=== PATIENT | female | born 1940 | race Caucasian/White ===

== ENCOUNTER 2018-06-30 00:28 | Outpatient (CLI) | payer MEDICARE, BC, SELFPAY ==
--- NOTE | 2018-06-30 09:01 | DI.RAD_ITS ---
SYMPTOM/DIAGNOSIS: LUMBAGO WITH SCIATICA, M54.41 LUMBAR SPINE: There is partial sacralization of L 5. There is moderate to severe disc space narrowing throughout. There are prominent endplate osteophytes throughout, greatest at L 2-3. Facet degenerative changes are also present, greatest at L 5-S 1. No spondylolysis, spondylolisthesis or scoliosis is seen. There are no compression fractures. The aorta is calcified and normal in diameter. IMPRESSION: Advanced degenerative changes.
== END 2018-06-30 00:48 ==
PROVIDERS: PCP Family Medicine; Visit Provider Family Medicine
DX: M54.41 Lumbago with sciatica, right side (principal); M51.17 Intervertebral disc disorders with radiculopathy, lumbosacral region
CPT/HCPCS: 72110

== ENCOUNTER 2020-07-25 16:42 | Outpatient (REF) | payer OTHER, SELFPAY | END 2020-07-25 16:43 | disposition home or self-care (01) | LOC: NCHCN 16:42 | PROVIDERS: PCP Family Medicine; Visit Provider Family Medicine | DX: R30.0 Dysuria (principal) | CPT/HCPCS: 87077; 87086; 87186 ==

== ENCOUNTER 2020-08-13 19:01 | Outpatient (REF) | payer OTHER, SELFPAY ==
[2020-08-13 13:25] LABS: HCT 40.3 % (36.0-46.0); HGB 14.1 g/dL (11.2-15.7); MCH 34.4 pg (27.0-33.0); MCV 98.3 fL (80-95); MPV 11.5 fL (8.0-11.0); Platelet Count 239 10^3/uL (130-400); RDW 13.7 % (11.7-14.6); RDW-SD 49.7 fL; WBC 6.27 10^3/uL (4.4-10.8)
[2020-08-13 14:00] LABS: ALT 35 U/L (14-59); AST 25 U/L (15-37); Albumin 3.7 g/dL (3.4-5.0); Alkaline Phosphatase 49 U/L (46-116); BUN 19 mg/dL (7-18); Bilirubin, Total 0.3 mg/dL (0.2-1.0); CREATININE 0.9 mg/dL (0.55-1.02); Calcium 9.3 mg/dL (8.5-10.1); Calculated LDL 140 mg/dL (<100); Chloride 106 mmol/L (98-107); Cholesterol 245 mg/dL (<200); Glucose 76 mg/dL (74-106); HDL Cholesterol 63 mg/dL (40-60); Potassium 3.8 mmol/L (3.5-5.1); Sodium 145 mmol/L (136-145); Total Protein 7.1 g/dL (6.4-8.2); Triglyceride 214 mg/dL (<150)
== END 2020-08-13 19:02 | disposition home or self-care (01) ==
LOC: NCHCN 19:01
PROVIDERS: PCP Family Medicine; Visit Provider Family Medicine
DX: E78.5 Hyperlipidemia, unspecified (principal); I10 Essential (primary) hypertension; R30.0 Dysuria
CPT/HCPCS: 80053; 80061; 85027

== ENCOUNTER 2020-12-08 12:53 | Outpatient (REF) | payer OTHER, SELFPAY ==
[2020-12-08 21:56] LABS: ALT 46 U/L (14-59); AST 39 U/L (15-37); Albumin 3.9 g/dL (3.4-5.0); Alkaline Phosphatase 69 U/L (46-116); Anion Gap 8.7 mmol/L (3-11); BUN 12 mg/dL (7-18); Bilirubin, Total 0.5 mg/dL (0.2-1.0); CO2 29.3 mmol/L (21.0-32.0); CREATININE 0.9 mg/dL (0.55-1.02); Calcium 9.2 mg/dL (8.5-10.1); Calculated LDL 148 mg/dL (<100); Chloride 106 mmol/L (98-107); Cholesterol 230 mg/dL (<200); Glucose 87 mg/dL (74-106); HDL Cholesterol 51 mg/dL (40-60); Potassium 4.3 mmol/L (3.5-5.1); Sodium 144 mmol/L (136-145); Total Protein 6.8 g/dL (6.4-8.2); Triglyceride 156 mg/dL (<150)
== END 2020-12-08 12:54 | disposition home or self-care (01) ==
LOC: NCHCN 12:53
PROVIDERS: PCP Family Medicine; Visit Provider Family Medicine
DX: E78.5 Hyperlipidemia, unspecified (principal); I10 Essential (primary) hypertension
CPT/HCPCS: 80053; 80061

== ENCOUNTER 2021-01-26 17:46 | Outpatient (REF) | payer OTHER, SELFPAY ==
[2021-01-28 13:37] LABS: COVID-19 RT-PCR UVMMC Result Negative (Negative)
== END 2021-01-26 17:47 | disposition home or self-care (01) ==
LOC: NCHCN 17:46
PROVIDERS: PCP Family Medicine; Visit Provider Family Medicine
DX: Z20.822 Contact with and (suspected) exposure to COVID-19 (principal)
CPT/HCPCS: U0003

== ENCOUNTER 2021-07-29 12:10 | Outpatient (REF) | payer OTHER, SELFPAY ==
[2021-07-29 15:10] LABS: BUN 17 mg/dL (7-18); CREATININE 0.9 mg/dL (0.55-1.02); Chloride 106 mmol/L (98-107); Glucose 83 mg/dL (74-106); Sodium 142 mmol/L (136-145)
== END 2021-07-29 12:11 | disposition home or self-care (01) ==
LOC: NCHCN 12:10
PROVIDERS: PCP Family Medicine; Visit Provider Family Medicine
DX: I10 Essential (primary) hypertension (principal)
CPT/HCPCS: 80048

== ENCOUNTER 2022-02-12 19:04 | Emergency (ER) | payer OTHER, SELFPAY ==
[2022-02-12] VITALS (24 sets, daily range): BP systolic 163–209; BP diastolic 63–152; PULSE 47–101; RESP 13–26; TEMP 36.3; O2SAT 95–99
--- NOTE | 2022-02-12 19:00 | RT.EKG_ITS ---
APPROVED REPORT Exam: Resting ECG Reason for Exam: ekg changes Patient Location: E HR:46 bpm ECG Measurements Heart Rate 46 AXIS AZ 226 P 21 QRSd 94 QRS -38 QT 510 T 28 QTc 445 Conclusion Sinus bradycardia...rate< 60 Borderline prolonged AZ interval...AZ >222, V-rate 30- 49 Left ventricular hypertrophy...multiple voltage criteria. Sinus. LVH. No STEMI.
--- NOTE | 2022-02-12 20:00 | DI.CT_ITS ---
Exam(s) CT HEAD WO EXAM: CT HEAD WO CLINICAL HISTORY: right temporal pain. TECHNIQUE: Imaging Protocol: Axial computed tomography images with coronal and sagittal reformatted images were created and reviewed COMPARISON: CT HEAD WITHOUT CONTRAST from 02/06/2016 FINDINGS: There are no skull fractures nor fluid in the visualized paranasal sinuses. There is no evidence of intracranial hemorrhage, mass effect, or shift of midline structures. There are no extra-axial fluid collections. The ventricles are not enlarged or shifted and there is no blo od within the ventricular system nor within the basal cisterns. There is heavy calcification within the right vertebral artery at the skull base. Also eccentric katarzyna cified plaque noted at the mid aspect of the basilar artery. Also calcification within the intracave rnous internal carotid arteries. Tiny lacunar infarct noted in the lateral left basal ganglia, unchanged from 2016. There is, however , a subtle area of asymmetric hypodensity in the left parietal white matter, more so than previous. This may be post ischemic. Also very subtle asymmetric hypodensity in the left supra ventricular hig h frontal parietal white matter. IMPRESSION: Subtle left-sided white matter findings. Recommend follow-up MRI with diffusion imaging to determine if there has been an acute ischemic event. RADIATION DOSE DELIVERED: 693.06mGy.cm Total DLP DATA REPOSITORY: All CT scans at this facility are submitted to the National Radiology Data Registry (NRDR) Dose Index Registry (DIR) with the [employer] (ACR). RADIATION OPTIMIZATION: All CT scans at this facility use at least one of these dose optimization te chniques: automated exposure control; mA and/or kV adjustment per patient size (includes targeted exa ms where dose is matched to clinical indication); or iterative reconstruction.
[2022-02-12 20:28] LABS: Abs Immature Grans 0.01 10^3/uL (0.0-0.06); Absolute Basophil Count 0.03 10^3/uL (0.0-0.2); Absolute Eosinophil Count 0.27 10^3/uL (0.0-0.7); Absolute Monocyte Count 0.83 10^3/uL (0.1-0.8); Basophils % 0.5; Eosinophils % 4.7; HCT 40.2 % (36.0-46.0); Immature Grans % 0.2; Lymphocytes % 31.4; MCH 34.3 pg (27.0-33.0); MCHC 34.8 % (32.0-36.0); MCV 99 fL (80-95); Monocytes % 14.5; Neutrophils % 48.7; Platelet Count 205 10^3/uL (130-400); RBC 4.08 10^6/uL (3.93-5.22); RDW 13.2 % (11.7-14.6); RDW-SD 47.9 fL; WBC 5.74 10^3/uL (4.4-10.8)
[2022-02-12 20:32] LABS: ESR 9 mm/hr (0-30)
[2022-02-12 20:44] LABS: ALT 27 U/L (14-59); AST 24 U/L (15-37); Albumin 3.5 g/dL (3.4-5.0); Alkaline Phosphatase 50 U/L (46-116); Anion Gap 8.3 mmol/L (3-11); BUN 15 mg/dL (7-18); Bilirubin, Total 0.4 mg/dL (0.2-1.0); CO2 27.7 mmol/L (21.0-32.0); CREATININE 0.8 mg/dL (0.55-1.02); Calcium 8.8 mg/dL (8.5-10.1); Chloride 105 mmol/L (98-107); Glucose 94 mg/dL (74-106); Sodium 141 mmol/L (136-145); Troponin I < 50 ng/L (<or=60)
--- NOTE | 2022-02-12 20:55 | DI.VRAD_ITS ---
PROCEDURE INFORMATION: Exam: CT Head Without Contrast Exam date and time: 02/12/2022 8:32 PM Age: 81 years old Clinical indication: Stroke-like symptoms; Headache TECHNIQUE: Imaging protocol: Computed tomography of the head without contrast. Other technique: STROKE PROTOCOL was implemented. COMPARISON: CT HEAD WITHOUT CONTRAST 02/06/2016 6:52 PM FINDINGS: Brain: There is no acute intracranial hemorrhage, mass effect or midline shift. No large acute territorial infarct identified. There are patchy regions of hypodensity in the periventricular and subcortical white matter, likely on the basis of chronic microvascular ischemic disease. Cerebral ventricles: The ventricles and sulci are prominent in size, which is at least in part due to global cerebral volume loss. Paranasal sinuses: Visualized sinuses are unremarkable. No fluid levels. Mastoid air cells: Visualized mastoid air cells are well aerated. Bones/joints: No acute fracture. Soft tissues: Unremarkable. IMPRESSION: No acute intracranial hemorrhage, mass effect or midline shift. ASSESSMENT: ASPECTS ([place] Stroke Program Early CT Score) is 10. Dictated and Authenticated by: Oksana Claderon MD. Ordering:SWATHI Butler MD
[2022-02-12] MEDS: Metoclopramide 10 MG/2 ML VIAL 5 MG IVP (21:03)
--- NOTE | 2022-02-12 23:57 | ED.GENADUL_ITS ---
Discharge Plan Disposition Patient Disposition: HOME Condition: Stable Discharge Details Clinical Impression: Headache Primary Care Provider: Rosie Mathews ED Provider: Carrie Pacheco Home Meds and New Rx's Prescriptions: Continued AVORIDA PO DAILY vitamin E 100 UNIT capsule 100 unit PO DAILY Label Comments: Pt. takes 1000 IU QD. ascorbate calcium (vitamin C) 500 MG tablet 1 tab PO DAILY aspirin 81 MG tablet,chewable 1 tab PO DAILY vitamin B complex [B-Complex] 1 EACH tablet 1 tab PO DAILY indomethacin 75 MG capsule, extended release 75 mg PO DAILY Qty: 15 0RF losartan 50 mg tablet 50 mg PO DAILY Label Comments: TAKE ONE TABLET BY MOUTH EVERY DAY oxybutynin chloride 5 mg tablet 5 mg PO DAILY Label Comments: TAKE ONE TABLET BY MOUTH AT BEDTIME NEEDED Discharge Instructions Instructions: General Headache (ED) Additional Instructions: Continue on your prescribed medication Follow-up with your doctor on Tuesday Try to check your blood pressure only once a day and follow-up with your doctor regarding an elevated blood pressure Should you develop chest pain, shortness of breath, dizziness, or any new or worsening complaints, please return for reassessment Referrals: Rosie Mathews [Primary Care Provider] - Discharge Data Discharge Date/Time-TO BE ENTERED AT DEPARTURE: 02/12/22 22:01 Medical Decision Making Patient is resting quite comfortably in room, she is fully alert and oriented with a nonfocal neurological exam Her blood pressure is 178/77 at time of my assessment, I have low suspicion that her blood pressure is coinciding with her symptoms of headache I do not feel IV intervention is necessary at this time She is a nonfocal neurological exam She will continue on her prescribed medications and follow-up with her primary care physician in 2 to 3 days for reassessment She is given very low threshold to return should she have new or worsening complaints Your diagnostic labs are reassuring Her CT of her head does not show acute abnormality Her sed rate is within normal limits Discharged home in stable condition with stable vital Troponin negative and in the absence of chest pain or shortness of breath and cardiac complaints, I do not see any indication to do additional testing at this time Medical Records Medical records reviewed: Yes I reviewed the patient's medical records. Lab Data Lab results reviewed: Yes I reviewed the patient's lab results. HPI General Date/Time Provider Initiated Documentation: 02/12/22 19:25 . HPI Narrative: This pleasant 81-year-old female with history of hypertension presents with report of headache which precipitated patient to check her blood pressure approximately 12:00 today. She went to urgent care and was sent here for assessment. Patient denies any weakness, dizziness, chest pain, shortness of breath. She has a mild headache currently. She denies any vision change. She denies any speech or sensation change. She denies any trauma. She denies any vision change or focal weakness. Risk of car denies change in medications or carbon monoxide exposure Related Data Home Medications Medication Instructions Recorded Confirmed ascorbate calcium (vitamin C) 500 1 tab PO DAILY 11/25/14 02/12/22 mg tablet aspirin 81 mg chewable tablet 1 tab PO DAILY 11/25/14 02/12/22 vitamin B complex (B-Complex 1 tab PO DAILY 11/25/14 02/12/22 tablet) vitamin E 100 unit capsule 100 unit PO DAILY 11/25/14 02/12/22 Avorida PO DAILY 10/30/15 indomethacin 75 mg 75 mg PO DAILY ##15 02/06/16 02/12/22 capsule,extended release losartan 50 mg tablet 50 mg PO DAILY 02/12/22 02/12/22 oxybutynin chloride 5 mg tablet 5 mg PO DAILY 02/12/22 02/12/22 Previous Rx's Medication Instructions Recorded indomethacin 75 mg 75 mg PO DAILY ##15 02/06/16 capsule,extended release Allergies Allergy/AdvReac Type Severity Reaction Status Date / Time hydrocodone Allergy Intermediate Itching Unverified 02/12/22 19:18 oxycodone HCl [From Percocet] Allergy Intermediate Itching Unverified 02/12/22 19:18 prednisone Allergy Intermediate Swelling/Ed Unverified 02/12/22 19:18 acosta General Stated Complaint: GenMedical BRADLEY: 3 Review of Systems All systems reviewed & are unremarkable except as noted in HPI and below PFSH All Active Problems (Updated 02/12/22 @ 21:37 by FLAVIO Cannon) Headache (Acute) Tinnitus, bilateral (Acute) Sensorineural hearing loss of both ears (Acute) Social History Smoking/Tobacco Use Status: Former Tobacco Use Smoking risk assessment performed?: Yes Drug use: Never Exam Const General: cooperative, comfortable and no acute distress Orientation: alert and oriented x3 Eyes Pupils: PERRL Resp Effort & Inspection: normal respiratory effort Cardio Rate: regular rate Rhythm: regular rhythm Skin General skin exam: no rashes or lesions noted Neuro General: patient alert, patient oriented x3 and CN's II-XI intact bilaterally Cranial Nerves: CN's II-XI intact bilaterally Cognition: normal cognition Speech: speech normal Gait: normal gait Motor: strength 5/5 throughout Sensory Exam: no sensory deficits noted Extrem General: normal to inspection Course Vital Signs Vital signs: Vital Signs Temperature 36.3 C L 02/12/22 19:15 Pulse 58 L 02/12/22 19:15 Respiratory Rate 16 02/12/22 19:15 Blood Pressure 191/71 H 02/12/22 19:15 Pulse Oximetry 97 02/12/22 19:15 Temperature 36.3 C L 02/12/22 22:00 Temperature Source Temporal Artery Scan 02/12/22 19:15 Pulse 50 L 02/12/22 22:00 Pulse 53 L 02/12/22 21:50 Respiratory Rate 17 02/12/22 22:00 Respiratory Effort Non-Labored 02/12/22 19:57 Respiratory Depth Normal 02/12/22 19:57 Respiratory Pattern Normal 02/12/22 19:57 Blood Pressure 202/77 H 02/12/22 22:00 Blood Pressure Mean 125 02/12/22 21:49 Blood Pressure Position Sitting 02/12/22 19:15 Pulse Oximetry 97 02/12/22 22:00 Oxygen Delivery Method Room Air 02/12/22 20:15 Oxygen Flow Rate 0 02/12/22 20:15 Pain Level 0 02/12/22 22:00 Lab/Test Results Lab/Test Results: Laboratory Tests Range/Units 02/12/22 02/12/22 02/12/22 20:20 20:20 20:20 WBC (4.4-10.8) 10^3/uL 5.74 RBC (3.93-5.22) 10^6/uL 4.08 Hgb (11.2-15.7) g/dL 14.0 Hct (36.0-46.0) % 40.2 MCV (80-95) fL 99 H MCH (27.0-33.0) pg 34.3 H MCHC (32.0-36.0) % 34.8 RDW (11.7-14.6) % 13.2 Plt Count (130-400) 10^3/uL 205 MPV (8.0-11.0) fL 11.0 Immature Gran % 0.2 Neutrophils % 48.7 Lymphocytes % 31.4 Monocytes % 14.5 Eosinophils % 4.7 Basophils % 0.5 Nucleated RBC % (0.0-0.3) % 0.0 Absolute Neutrophils (1.2-6.7) 10^3/uL 2.80 Absolute Lymphocytes (1.2-3.4) 10^3/uL 1.80 Absolute Monocytes (0.1-0.8) 10^3/uL 0.83 H Absolute Eosinophils (0.0-0.7) 10^3/uL 0.27 Absolute Basophils (0.0-0.2) 10^3/uL 0.03 ESR (0-30) mm/hr 9 Sodium (136-145) mmol/L 141 Potassium (3.5-5.1) mmol/L 4.0 Chloride (98-107) mmol/L 105 Carbon Dioxide (21.0-32.0) mmol/L 27.7 Anion Gap (3-11) mmol/L 8.3 BUN (7-18) mg/dL 15 Creatinine (0.55-1.02) mg/dL 0.8 Estimated GFR/1.73 m2 (mL/min/1.73m2) >= 60.00 Glucose (74-106) mg/dL 94 Calcium (8.5-10.1) mg/dL 8.8 Total Bilirubin (0.2-1.0) mg/dL 0.4 AST (15-37) U/L 24 ALT (14-59) U/L 27 Alkaline Phosphatase (46-116) U/L 50 Troponin I (<or=60) ng/L < 50 Total Protein (6.4-8.2) g/dL 7.0 Albumin (3.4-5.0) g/dL 3.5
--- NOTE | 2022-02-17 17:51 | W.ED.FU ---
Follow Up Plan: I was reviewing the radiologists overread and it appears there is a discrepancy in the virtual radiology interpretation of patient's head CT, at time of discharge patient was completely asymptomatic, ambulatory with steady gait fully alert and oriented. Her blood pressure was slightly elevated, however this was rechecking her blood pressure on several occasions and being transferred over from urgent care. Her headache resolved with Tylenol only. She was encouraged to continue taking her blood pressure medication and follow-up with her primary care physician in the morning. the overread exhibited concern that there is possibly ischemia and unfortunately this was not related to the emergency department on the and this was interpreted. I am reviewing this finding now on 17 February at 1750 3 in the evening. I placed a call to the patient, I am awaiting response at this time.
== END 2022-02-12 22:01 | disposition home or self-care (01) ==
PROVIDERS: Emergency Provider Physician Assistant; PCP Family Medicine
DX: R51.9 Headache, unspecified (principal); I10 Essential (primary) hypertension; Z87.891 Personal history of nicotine dependence
CPT/HCPCS: 80053; 85652; 93005; 96374; 96375; 99284; 70450; 84484; 85025; 93010; J2765

== ENCOUNTER 2022-02-18 13:13 | Emergency (ER) | payer OTHER, SELFPAY ==
--- NOTE | 2022-02-18 13:15 | DI.MRI_ITS ---
Exam(s) MR BRAIN WO EXAM: MR BRAIN WO CLINICAL HISTORY: Abnormal CT TECHNIQUE: Multiplanar multisequence MRI of the brain was performed. COMPARISON: CT CT HEAD WO from 02/12/2022 FINDINGS: CEREBRAL PARENCHYMA: There is no evidence of intracranial hemorrhage, mass effect, or shift of midline structures. There are no extra-axial fluid collections. Ventricles are not enlarged or shifted. There is no significant focal signal abnormality in the cerebellar hemispheres. There is symmetrical increased signal evident both sides of the iza. There is sparing of the thalami and midbrain. How ever, there are multiple foci of white matter signal abnormality in the [place] in supra ventricular whi te matter evident on the FLAIR images, more so on the left side and this consistent with findings on the recent CT scan. However, there is no evidence of restricted diffusion at this level nor elsewher e in the brain to suggest acute ischemic event. SWI: No evidence of microhemorrhages. There is no significant focal signal abnormality evident on diffusion imaging to suggest acute ischem ic event. PITUITARY GLAND: No mass nor parasellar abnormality. No obvious abnormality in the cavernous sinuses. FLOW VOIDS: The expected flow void are noted. No evidence of obvious aneurysm nor obvious vascular ma lformation. PARANASAL SINUSES: The visualized paranasal sinuses appear unremarkable. No obvious finding ORBITS: No obvious findings. IMPRESSION: Abundant periventricular white matter disease chronic nature, slightly more so on the left side, comm ensurate with findings on the recent CT scan. However, there is no evidence of restricted diffusion on DWI to suggest acute infarct. Also no evidence of intracranial hemorrhage. DATA REPOSITORY:
[2022-02-18 13:38] VITALS: BP 194/77; PULSE 70; RESP 16; TEMP 36.7; O2SAT 94
[2022-02-18 15:54] VITALS: BP 144/88
--- NOTE | 2022-02-18 15:56 | ED.GENADUL_ITS ---
Discharge Plan Disposition Patient Disposition: HOME Condition: Stable Discharge Details Clinical Impression: Headache Primary Care Provider: Rosie Mathews ED Provider: Carrie Pacheco Home Meds and New Rx's Prescriptions: Continued AVORIDA PO DAILY vitamin E 100 UNIT capsule 100 unit PO DAILY Label Comments: Pt. takes 1000 IU QD. ascorbate calcium (vitamin C) 500 MG tablet 1 tab PO DAILY aspirin 81 MG tablet,chewable 1 tab PO DAILY vitamin B complex [B-Complex] 1 EACH tablet 1 tab PO DAILY indomethacin 75 MG capsule, extended release 75 mg PO DAILY Qty: 15 0RF losartan 50 mg tablet 50 mg PO DAILY Label Comments: TAKE ONE TABLET BY MOUTH EVERY DAY oxybutynin chloride 5 mg tablet 5 mg PO DAILY Label Comments: TAKE ONE TABLET BY MOUTH AT BEDTIME NEEDED Discharge Instructions Instructions: Temporomandibular Disorder (ED), General Headache (ED) Additional Instructions: Take Tylenol as needed for pain Talk to your dentist about your pain, you may be able to have a mouthguard which will help with your symptoms You may apply ice or massage your jaw in the area that you have tenderness Please follow-up with your doctor tomorrow regarding your blood pressure as it is elevated here, your blood pressure is normal at home and only elevates when you go to the doctors, this may be directly related to healthcare elevated blood pressure, have low suspicion that your headache is related to your blood pressure Please return immediately should he have new or worsening complaints Referrals: Rosie Mathews [Primary Care Provider] - 1 day Medical Decision Making MRI did not show evidence of acute abnormality per radiology interpretation and my review Patient's blood pressure is 144/88, she was encouraged to continue on her current prescription of antihypertensive TMJ joint tenderness, encouraged follow-up with dentist Return precautions discussed and patient expressed understanding, discharged home in stable condition with only mildly elevated blood pressure, unlikely related to patient's current previous complaint Specifically no tenderness over temporal artery Review of prior documentation and labs from previous assessment Care management with PCP recheck in 24 hours, placed on care management list for follow-up Medical Records Medical records reviewed: Yes I reviewed the patient's medical records. HPI General Date/Time Provider Initiated Documentation: 02/18/22 13:18 . HPI Narrative: This 81-year-old female presents for reassessment of reported abnormal CT head reading. She currently is asymptomatic and otherwise feels well. She states that she was assessed by her primary care physician yesterday for the same complaint and was discharged home in reportedly good condition. She denies any current headache, strength or sensation change, vision change, stiff neck, fever, chills, or any additional complaints at this time. She is taking her current medications as prescribed without difficulty. Related Data Home Medications Medication Instructions Recorded Confirmed ascorbate calcium (vitamin C) 500 1 tab PO DAILY 11/25/14 02/12/22 mg tablet aspirin 81 mg chewable tablet 1 tab PO DAILY 11/25/14 02/12/22 vitamin B complex (B-Complex 1 tab PO DAILY 11/25/14 02/12/22 tablet) vitamin E 100 unit capsule 100 unit PO DAILY 11/25/14 02/12/22 Avorida PO DAILY 10/30/15 indomethacin 75 mg 75 mg PO DAILY ##15 02/06/16 02/12/22 capsule,extended release losartan 50 mg tablet 50 mg PO DAILY 02/12/22 02/12/22 oxybutynin chloride 5 mg tablet 5 mg PO DAILY 02/12/22 02/12/22 Previous Rx's Medication Instructions Recorded indomethacin 75 mg 75 mg PO DAILY ##15 02/06/16 capsule,extended release Allergies Allergy/AdvReac Type Severity Reaction Status Date / Time hydrocodone Allergy Intermediate Itching Unverified 02/18/22 13:43 oxycodone HCl [From Percocet] Allergy Intermediate Itching Unverified 02/18/22 13:43 prednisone Allergy Intermediate Swelling/Ed Unverified 02/18/22 13:43 acosta General Stated Complaint: Recheck BRADLEY: 3 Review of Systems All systems reviewed & are unremarkable except as noted in HPI and below PFSH All Active Problems (Updated 02/18/22 @ 15:43 by FLAVIO Cannon) Headache (Acute) Tinnitus, bilateral (Acute) Sensorineural hearing loss of both ears (Acute) Social History Smoking/Tobacco Use Status: Former Tobacco Use Smoking risk assessment performed?: Yes Drug use: Never Exam Const General: cooperative, comfortable and no acute distress Orientation: alert and oriented x3 HENMT Other: Specifically no pain at patient's temporal artery, tenderness and reproducible pain at TMJ joint Eyes Pupils: PERRL Resp Effort & Inspection: normal respiratory effort Auscultation: clear to auscultation bilaterally Cardio Rate: regular rate Rhythm: regular rhythm Skin General skin exam: no rashes or lesions noted Neuro General: patient alert and patient oriented x3 Cognition: normal cognition Speech: speech normal Gait: normal gait Motor: strength 5/5 throughout Course Vital Signs Vital signs: Vital Signs Temperature 36.7 C 02/18/22 13:38 Pulse 70 02/18/22 13:38 Respiratory Rate 16 02/18/22 13:38 Blood Pressure 194/77 H 02/18/22 13:38 Pulse Oximetry 94 02/18/22 13:38 Temperature 36.7 C 02/18/22 13:38 Temperature Source Skin 02/18/22 13:38 Pulse 70 02/18/22 13:38 Respiratory Rate 16 02/18/22 13:38 Blood Pressure 144/88 H 02/18/22 15:54 Blood Pressure Position Sitting 02/18/22 13:38 Pulse Oximetry 94 02/18/22 13:38 Oxygen Delivery Method Room Air 02/18/22 13:38 Oxygen Flow Rate 0 02/18/22 13:38 Pain Level 0 02/18/22 15:54 Comment 02/18/22 13:38
== END 2022-02-18 15:56 | disposition home or self-care (01) ==
PROVIDERS: Emergency Provider Physician Assistant; PCP Family Medicine
DX: R51.9 Headache, unspecified (principal); R03.0 Elevated blood-pressure reading, without diagnosis of hypertension; M26.629 Arthralgia of temporomandibular joint, unspecified side; Z87.891 Personal history of nicotine dependence
CPT/HCPCS: 99284; 70551; 99282

== ENCOUNTER → 2023-09-23 15:22 | Outpatient (CLI) | payer OTHER, SELFPAY ==
--- NOTE | 2023-09-23 13:05 | DI.RAD_ITS ---
Exam(s) XR CHEST 2V PA LATERAL EXAM: XR CHEST 2V PA LATERAL CLINICAL HISTORY: HEMATEMESIS, K92.0. TECHNIQUE: 2D digital imaging was performed. COMPARISON: CR CHEST 2 VIEWS PA,LAT from 10/03/2017 FINDINGS: 2 views: Heart size is normal. The mediastinum is not widened. Lungs are clear. No infiltrates nor pleural effusions. Right shoulder reverse prosthesis again noted as well as evidence of previous rotator cuff surgery in the opposite-left shoulder. IMPRESSION: No acute pulmonary findings.No significant change compared to 10/03/2017. DATA REPOSITORY: RADIATION DOSE DELIVERED:
== END ==
PROVIDERS: PCP Family Medicine; Visit Provider Family Medicine
DX: K92.0 Hematemesis (principal)
CPT/HCPCS: 71046

== ENCOUNTER 2023-10-06 15:33 | Outpatient (REF) | payer OTHER, SELFPAY ==
[2023-10-06 16:15] LABS: BUN 14 mg/dL (7-18); CREATININE 0.9 mg/dL (0.55-1.02); Calcium 9.2 mg/dL (8.5-10.1); Chloride 105 mmol/L (98-107); Estimated GFR 63.04 (mL/min/1.73m2); Glucose 107 mg/dL (74-106); Potassium 4.4 mmol/L (3.5-5.1); Sodium 142 mmol/L (136-145)
== END 2023-10-06 15:34 | disposition home or self-care (01) ==
LOC: NCHCN 15:33
PROVIDERS: PCP Family Medicine; Visit Provider Family Medicine
DX: I10 Essential (primary) hypertension (principal)
CPT/HCPCS: 80048

== ENCOUNTER 2023-10-11 15:39 | Outpatient (REF) | payer OTHER, SELFPAY ==
[2023-10-11 20:35] LABS: Abs Immature Grans 0.02 10^3/uL (0.0-0.06); Absolute Basophil Count 0.08 10^3/uL (0.0-0.2); Absolute Eosinophil Count 0.52 10^3/uL (0.0-0.7); Absolute Lymphocyte Count 2.13 10^3/uL (1.2-3.4); Absolute Monocyte Count 0.81 10^3/uL (0.1-0.8); Absolute Neutrophil Count 3.99 10^3/uL (1.2-6.7); Basophils % 1.1; Eosinophils % 6.9; HCT 42.5 % (36.0-46.0); HGB 14.5 g/dL (11.2-15.7); Immature Grans % 0.3; Lymphocytes % 28.2; MCH 34.1 pg (27.0-33.0); MCHC 34.1 % (32.0-36.0); MCV 100 fL (80-95); MPV 11.4 fL (8.0-11.0); Monocytes % 10.7; Neutrophils % 52.8; Platelet Count 222 10^3/uL (130-400); RBC 4.25 10^6/uL (3.93-5.22); RDW 14.3 % (11.7-14.6); RDW-SD 52.4 fL; WBC 7.55 10^3/uL (4.4-10.8)
== END 2023-10-11 15:40 | disposition home or self-care (01) ==
LOC: NCHCN 15:39
PROVIDERS: PCP Family Medicine; Visit Provider Family Medicine
DX: I10 Essential (primary) hypertension (principal)
CPT/HCPCS: 85025

== ENCOUNTER 2023-10-30 13:47 | Emergency (ER) | payer OTHER, SELFPAY ==
[2023-10-30] VITALS (47 sets, daily range): BP systolic 102–217; BP diastolic 55–97; PULSE 54–124; RESP 13–28; TEMP 36.7; O2SAT 91–97
--- NOTE | 2023-10-30 13:45 | DI.CT_ITS ---
Exam(s) CT CHEST PE CTA EXAM: CT CHEST PE CTA CLINICAL HISTORY: Chest pain radiating to back. TECHNIQUE: Imaging Protocol: Axial CT angiography was performed with multi-slice acquisition and mu lti-planar and/or 3D reconstructions. CONTRAST MATERIAL: Intravenous: Omnipaque 350 contrast volume:100 mL COMPARISON: No exams were available for comparison FINDINGS: Tracheobronchial tree: Patent where visualized. Pulmonary parenchyma: No consolidation or dominant measurable mass. No architectural distortion. Ther e is a calcified granuloma in the right upper lobe. Pulmonary Arteries: No evidence of filling defect to suggest pulmonary emboli. Mediastinum and Chloe: No dominant adenopathy or fluid collection. The esophagus is unremarkable. Th ere is a small hiatal hernia. Visualized thyroid gland: Unremarkable. Pleura: No effusion or pneumothorax. Heart: The heart is not dilated. Coronary artery calcifications are present. No pericardial effusion . Aorta: The ascending thoracic aorta measures 4.8 x 4.8 cm. Due to the timing of the bolus, aortic op acification is suboptimal for evaluation of dissection. There is atherosclerotic calcification prese nt. Upper abdomen: Cholelithiasis. Soft tissues: Unremarkable. Bones: Within normal limits for the patient's age.Patient has a right total reverse shoulder replacem ent. IMPRESSION: 1. No evidence of a pulmonary embolism. 2. Ascending thoracic aorta measures 4.8 x 4.8 cm. Atherosclerotic calcification is present. 3. No acute pulmonary process. RADIATION DOSE DELIVERED: 544.62mGy.cm Total DLP DATA REPOSITORY: All CT scans at this facility are submitted to the National Radiology Data Registry (NRDR) Dose Index Registry (DIR) with the [employer] (ACR). RADIATION OPTIMIZATION: All CT scans at this facility use at least one of these dose optimization te chniques: automated exposure control; mA and/or kV adjustment per patient size (includes targeted exa ms where dose is matched to clinical indication); or iterative reconstruction.
--- NOTE | 2023-10-30 13:45 | RT.EKG_ITS ---
APPROVED REPORT Exam: Resting ECG Reason for Exam: chest pain Patient Location: E HR:65 bpm ECG Measurements Heart Rate 65 AXIS ME 210 P 22 QRSd 93 QRS -38 QT 415 T 86 QTc 431 Conclusion Sinus rhythm...normal P axis, V-rate 60- 99 LVH with secondary repolarization abnormality...multi-LVH criteria, abnrm ST-T Narrow complex normal sinus rhythm at a rate of 65. Left axis deviation LVH based on voltage criteri a. First-degree AV block. QTc within normal limits. T wave inversion in aVL. Compared to prior [place] 2 years ago T wave version in aVL is new. Mild upsloping ST segment elevation in lead III submil limeter. Mild ST segment flattening in lead I. Not meeting occlusion AK criteria.
--- NOTE | 2023-10-30 13:58 | W.ED.GENAD ---
Discharge Plan Disposition Patient Disposition: Transfer-Acute Inpatient Care Specific Acute Inpt Facility: [facility] Discharge Details Clinical Impression: ACS (acute coronary syndrome) Primary Care Provider: Rosie Mathews ED Provider: Radu Giron Home Meds and New Rx's Prescriptions: No Action AVORIDA PO DAILY vitamin E 100 UNIT capsule 100 unit PO DAILY Patient Comments: Pt. takes 1000 IU QD. ascorbate calcium (vitamin C) 500 MG tablet 1 tab PO DAILY aspirin 81 MG tablet,chewable 1 tab PO DAILY vitamin B complex [B-Complex] 1 EACH tablet 1 tab PO DAILY losartan 50 mg tablet 50 mg PO DAILY Patient Comments: TAKE ONE TABLET BY MOUTH EVERY DAY oxybutynin chloride 5 mg tablet 5 mg PO DAILY Patient Comments: TAKE ONE TABLET BY MOUTH AT BEDTIME NEEDED Discharge Data Discharge Date/Time-TO BE ENTERED AT DEPARTURE: 10/30/23 16:32 HPI General Date/Time Provider Initiated Documentation: 10/30/23 13:56. HPI Narrative: MDM This patient was seen on arrival. Her initial ECG was not meeting occlusion [place] criteria. Nonetheless she received aspirin and nitroglycerin for her ongoing chest pain. Given chest pain radiating to back with dilated arotic outflow tract on bedside echo, I ordered a CT angiogram of her chest to assess for aortic dissection. No pain out of proportion to suggest necrotizing soft tissue infection. Not short of breath not hypoxic to suggest PE. Not hypotensive nor dialysis patient nor with history of malignancy so my suspicion is low for tamponade. No trauma to the chest so my suspicion is low for pneumothorax given equal breath sounds. No signs of volume overload so I do not feel that the patient requires diuretics nor high-dose nitroglycerin as she does not have pulmonary edema on my assessment. No positional component to suggest zia/myocarditis. No cough nor fever to suggest PNA. No vomiting to suggest increased risk for esophageal rupture. 2:22 PM Subsequently she had a second ECG performed with new rising ST segments in leads III and aVF. 2:30 PM Negative troponin. Comprehensive metabolic panel showing very mild hypernatremia. Mildly elevated renal function but GFR greater than 30. No acute LFT abnormalities. Normal reassuring magnesium. CBC lacks anemia thrombocytopenia and leukocytosis. 3:03 PM Patient had uptrending ST segment elevations on the monitor. A third ECG was performed meeting criteria for inferior STEMI. [facility] was consulted. 3:46 PM I spoke with [facility] cardiology, Dr. Lee. He advised high-dose atorvastatin, ticagrelor, & heparin drip. He advised holding thrombolysis pending fourth ECG. I ordered a repeat 1 hour delta troponin. CTA report still pending but no obvious dissection on my preliminary read. Patient has received aspirin 324 mg. Her pain has been responsive to nitroglycerin and ondansetron. Pads were applied to the patient. Patient had excursions of tachycardia into the 120s for which I ordered 5 mg of metoprolol IV. Subsequently patient's heart rates were in the low 60s so metoprolol was ultimately held. Fourth ECG no longer meeting STEMI criteria. I reengaged with cards from [facility] and Dr. Lee requested that I hold thrombolysis. 5:42 PM I signed patient out to Alejandra from [facility] at bedside. For chest pain responsive to nitro, I initiated a nitro gtt. I had the patient's CTA PE pushed to [facility]. Preliminary virtual radiology read negative for PE and no report of dissection. Repeat troponin was negative. Patient was accepted to [facility] by the fellow on behalf of Dr. Aguilera. Patient remained hemodynamically stable through her ED course. Chronic conditions affecting the care of the patient: Hypertension hyperlipidemia History obtained from an outside historian: Patient's daughter External record review: [facility] EMR Diagnostic interpretations performed by me: Per my independent interpretation EKG shows: ECG #1 Narrow complex normal sinus rhythm at a rate of 65. Left axis deviation LVH based on voltage criteria. First-degree AV block. QTc within normal limits. T wave inversion in aVL. Compared to prior dated 2 years ago T wave version in aVL is new. Mild upsloping ST segment elevation in lead III submillimeter. Mild ST segment flattening in lead I. Not meeting occlusion [place] criteria. ECG #2 2:21 PM Sinus tachycardia at a rate of 121. Left axis deviation. New approximately [address] segment elevation in lead III. Sub-[address] segment elevation in aVF. New ST segment depression in V2. Worsened T wave inversion in aVL. Worsened ST segment depression in lead I. Not meeting STEMI criteria but concerning for new acute injury. ECG #3 3:06 PM Sinus tachycardia at a rate of 118. Left axis deviation. ID within normal limits. Prolonged QTc. No signs of LVH. Denies any ST segment inferior elevations in leads II, III and aVF. Persistent ST segment depression in V2 and lead I. Persistent T wave inversion in aVL. Meeting STEMI criteria in leads III and aVF. ECG #4 3:51 PM Narrow complex normal sinus rhythm at a rate of 63. Left axis deviation no signs of LVH. First-degree AV block. Resolved QTc prolongation now within normal limits. Improved inferior ST segment elevations. Persistent but improving T wave inversion in aVL. Improving ST segment depression in lead III. Improved ST segment depression in V2. No acute injury pattern. Medications: Aspirin heparin ticagrelor ondansetron nitroglycerin Social determinants of health affecting disposition: N/A Management discussed with: Cardiology at [facility] Treatment/interventions considered: TNK but deferred based on recommendation cardiology at [facility] Response to therapies provided: Improved symptoms in the ED HPI This is an 83-year-old female with a history of hypertension and hyperlipidemia arriving to the emergency department via private vehicle in the setting of chest pain. Patient reports that she has intermittently had some pain in her back over the past week. Today sitting in zoroastrian she developed a central chest ache that traveled to her left arm and her back. She reports she did not have any syncope. No recent falls. She denies exacerbators and alleviators. Pain is not positional nor pleuritic. There is no family history of premature coronary artery disease. Patient has no history of PEs or DVTs. No routine tobacco ethanol, no illicits. Patient denies history of DM. Exam General: Well-appearing in no acute distress speaking in complete sentences. Head: Normocephalic, atraumatic. Eye: Extraocular eye movements intact. No conjunctival injection. No scleral icterus. Ear, nose, mouth, throat: Grossly normal inspection. Normal voice, handling secretions normally. Neck: Trachea midline. Cardiovascular: Well-perfused distal extremities. Regular rate and rhythm. Respiratory: Nonlabored respiration. Clear lungs bilaterally. Gastrointestinal: Nondistended abdomen. Musculoskeletal: No significant lower extremity pitting edema. Moving all 4 extremities spontaneously. Skin: Normal for age and race, grossly normal temperature and turgor. No acute rash. Neurologic: Alert and appropriate, no apparent acute deficits. Psychiatric: Mood and manner are appropriate. Grooming and personal hygiene are appropriate. Related Data Home Medications Medication Instructions Recorded Confirmed ascorbate calcium (vitamin C) 500 1 tab PO DAILY 11/25/14 10/30/23 mg tablet aspirin 81 mg chewable tablet 1 tab PO DAILY 11/25/14 10/30/23 vitamin B complex (B-Complex 1 tab PO DAILY 11/25/14 10/30/23 tablet) vitamin E 100 unit capsule 100 unit PO DAILY 11/25/14 10/30/23 Avorida PO DAILY 10/30/15 losartan 50 mg tablet 50 mg PO DAILY 02/12/22 10/30/23 oxybutynin chloride 5 mg tablet 5 mg PO DAILY 02/12/22 10/30/23 Allergies Allergy/AdvReac Type Severity Reaction Status Date / Time hydrocodone Allergy Intermediate Itching Unverified 02/18/22 13:43 oxycodone HCl [From Percocet] Allergy Intermediate Itching Unverified 02/18/22 13:43 prednisone Allergy Intermediate Swelling/Ed Unverified 02/18/22 13:43 acosta General Stated Complaint: Chest Pain BRADLEY: 2 Course Vital Signs Vital signs: Vital Signs Temperature 36.7 C 10/30/23 13:48 Pulse 71 10/30/23 13:48 Respiratory Rate 17 10/30/23 13:48 Blood Pressure 217/68 H 10/30/23 13:48 Pulse Oximetry 96 10/30/23 13:48 Temperature 36.7 C 10/30/23 13:48 Pulse 71 10/30/23 13:48 Respiratory Rate 17 10/30/23 13:48 Blood Pressure 217/68 H 10/30/23 13:48 Blood Pressure Position Sitting 10/30/23 13:48 Pulse Oximetry 96 10/30/23 13:48 Oxygen Delivery Method Room Air 10/30/23 13:48 Oxygen Flow Rate 0 10/30/23 13:48 Pain Level 10 10/30/23 13:48 Medical Decision Making Quality:SDOH Health Related Social Needs: No Data to Display Critical Care Time Critical Care Time Critical Care Time: Yes Total Critical Care Time: 60 Attestation: Acute coronary syndrome. Bedside assessments, conversations with tertiary care cardiology, critical care handoff to [facility], and rhythm interpretation. PFSH All Active Problems (Updated 10/30/23 @ 15:48 by Radu Giron MD) ACS (acute coronary syndrome) (Acute) Tinnitus, bilateral (Acute) Sensorineural hearing loss of both ears (Acute) Social History Smoking/Tobacco Use Status: Former Tobacco Use Smoking risk assessment performed?: Yes Alcohol Intake: never Drug use: Never Substance use type: does not use Housing: apartment Do you feel safe at home: Yes Do you feel safe in your relationship?: Yes POCUS Exam (ED) Limited Cardiac Exam DATE OF EXAM: 10/30/23 TIME OF EXAM: 16:08 PROVIDER THAT PERFORMED THE STUDY: Radu Giron IS THIS A REPEAT EXAM DURING THIS ENCOUNTER: no REASON FOR EXAM: Chest pain VISUALIZED STRUCTURES: Four Chambers, Left ventricle and LVOT VIEW OBTAINED: Apical 4-Chamber, Parasternal long-axis and Subxiphoid PERTINENT FINDINGS/IMPRESSION: No pericardial effusion and No RV dilation DIFFERENTIAL DIAGNOSES: Aortic outflow track greater than 4 cm, moderate squeeze, RV less than LV, no significant pericardial effusion. Exam complete
[2023-10-30 14:05] LABS: Abs Immature Grans 0.02 10^3/uL (0.0-0.06); Absolute Basophil Count 0.05 10^3/uL (0.0-0.2); Absolute Eosinophil Count 0.39 10^3/uL (0.0-0.7); Absolute Lymphocyte Count 2.37 10^3/uL (1.2-3.4); Absolute Monocyte Count 0.94 10^3/uL (0.1-0.8); Absolute Neutrophil Count 3.99 10^3/uL (1.2-6.7); Basophils % 0.6 %; HCT 42.7 % (36.0-46.0); HGB 14.5 g/dL (11.2-15.7); Immature Grans % 0.3 %; Lymphocytes % 30.5 %; MCH 33.8 pg (27.0-33.0); MCV 100 fL (80-95); Monocytes % 12.1 %; Neutrophils % 51.5 %; Platelet Count 227 10^3/uL (130-400); RBC 4.29 10^6/uL (3.93-5.22); RDW 14.3 % (11.7-14.6); RDW-SD 52.3 fL; WBC 7.76 10^3/uL (4.4-10.8)
[2023-10-30] MEDS: Aspirin 81 MG CHEW 324 MG CH (14:05)
[2023-10-30] MEDS: nitroGLYcerin 0.4 MG TAB SL ×4 (14:05→15:16)
--- NOTE | 2023-10-30 14:15 | RT.EKG_ITS ---
APPROVED REPORT Exam: Resting ECG Reason for Exam: change in rhythm Patient Location: E HR:121 bpm ECG Measurements Heart Rate 121 AXIS NC [id number] P [id number] QRSd 85 QRS -43 QT 333 T 98 QTc 473 Conclusion Junctional tachycardia...absent P waves, rapid V-rate LVH with secondary repolarization abnormality...multi-LVH criteria, abnrm ST-T ST elevation secondary to LVH...Multiple VCG criteria ST elevation, consider lateral injury...ST >0.10mV, I aVL V5 V6 New approximately [address] segment elevation in lead III. Sub-[address] segment elevation in aVF. New ST segment depression in V2. Worsened T wave inversion in aVL. Worsened ST segment depression in le ad I. Not meeting STEMI criteria but concerning for new acute injury.
[2023-10-30 14:22] LABS: ALT 27 U/L (14-59); AST 24 U/L (15-37); Alkaline Phosphatase 60 U/L (46-116); Anion Gap 10.8 mmol/L (3-11); BUN 19 mg/dL (7-18); Bilirubin, Total 0.6 mg/dL (0.2-1.0); CO2 27.2 mmol/L (21.0-32.0); CREATININE 1.2 mg/dL (0.55-1.02); Chloride 108 mmol/L (98-107); Estimated GFR 44.64 (mL/min/1.73m2); Glucose 87 mg/dL (74-106); Potassium 3.8 mmol/L (3.5-5.1); Sodium 146 mmol/L (136-145); Total Protein 7.6 g/dL (6.4-8.2); Troponin I < 50 ng/L (< or =60)
[2023-10-30] MEDS: Normal Saline - Diluent 50 ML VIAL IJ (14:43)
--- NOTE | 2023-10-30 15:00 | RT.EKG_ITS ---
APPROVED REPORT Exam: Resting ECG Reason for Exam: rhythm changes Patient Location: E HR:118 bpm ECG Measurements Heart Rate 118 AXIS NH 166 P -49 QRSd 86 QRS -45 QT 368 T 104 QTc 516 Conclusion Sinus or ectopic atrial tachycardia...P axis (-45,135), rate> 99 LVH with secondary repolarization abnormality...multi-LVH criteria, abnrm ST-T ST elevation secondary to LVH...Multiple VCG criteria Prolonged QT interval...QTc >500mS Sinus tachycardia at a rate of 118. Left axis deviation. NH within normal limits. Prolonged QTc. No signs of LVH. Denies any ST segment inferior elevations in leads II, III and aVF. Persistent ST segment depression in V2 and lead I. Persistent T wave inversion in aVL. Meeting STEMI criteria in leads III and aVF.
[2023-10-30] MEDS: Ondansetron 4 MG/2 ML VIAL (15:14)
[2023-10-30 15:44] LABS: Troponin I < 50 ng/L (< or =60)
--- NOTE | 2023-10-30 15:45 | RT.EKG_ITS ---
APPROVED REPORT Exam: Resting ECG Reason for Exam: Patient Location: E HR:63 bpm ECG Measurements Heart Rate 63 AXIS ME 232 P 22 QRSd 92 QRS -42 QT 413 T 81 QTc 424 Conclusion Sinus rhythm...normal P axis, V-rate 60- 99 Prolonged ME interval...ME >220, V-rate 50- 90 Left anterior fascicular block...axis(240,-40), init forces inf Left ventricular hypertrophy...multiple voltage criteria ST elevation, consider inferior injury...ST >0.08mV, II III aVF Narrow complex normal sinus rhythm at a rate of 63. Left axis deviation no signs of LVH. First-degr ee AV block. Resolved QTc prolongation now within normal limits. Improved inferior ST segment eleva tions. Persistent but improving T wave inversion in aVL. Improving ST segment depression in lead II I. Improved ST segment depression in V2. No acute injury pattern.
[2023-10-30] MEDS: Atorvastatin 40 MG TAB 80 MG PO (15:49)
[2023-10-30] MEDS: Heparin in 0.45% NaCl 25,000 UNIT/250 ML BAG 8.5 UNIT IV (15:53)
[2023-10-30] MEDS: Ticagrelor 90 MG TAB 180 MG PO (15:57)
[2023-10-30 16:04] LABS: PTT Activated 22.5 sec (23.6-32.8)
[2023-10-30] MEDS: nitroGLYcerin in D5W 50 MG/250 ML BTL 7.5 MG IV (16:12)
--- NOTE | 2023-10-30 16:53 | DI.VRAD_ITS ---
PROCEDURE INFORMATION: Exam: CTA Chest With Contrast Exam date and time: 10/30/2023 2:51 PM Age: 83 years old Clinical indication: Other: Chest pain radiating to back TECHNIQUE: Imaging protocol: Computed tomographic angiography of the chest with contrast. Exam focused on the arteries. 3D rendering (Not supervised by radiologist): MIP and/or 3D reconstructed images were created by the technologist. Contrast material: 350; Contrast volume: 100 ml; Contrast route: INTRAVENOUS (IV); COMPARISON: CR XR CHEST 2V PA LATERAL 09/23/2023 12:53 PM FINDINGS: Pulmonary arteries: Normal. No pulmonary emboli. Aorta: Aortic calcifications. Lungs: Atelectatic changes both lung bases. Calcified granuloma in the right upper lobe. No focal infiltrates. Pleural spaces: Unremarkable. No pneumothorax. No pleural effusion. Heart: Unremarkable. No cardiomegaly. No pericardial effusion. Coronary arteries: Mild coronary calcifications. Lymph nodes: Unremarkable. No enlarged lymph nodes. Diaphragm: Small hiatal hernia. Gallbladder and bile ducts: Cholelithiasis. Kidneys and ureters: Bilateral simple renal cysts. Bones/joints: Multilevel moderate degenerative disease thoracic spine. Post reverse total right shoulder arthroplasty. Post left rotator cuff repair. Soft tissues: Unremarkable. IMPRESSION: 1. No pulmonary embolism. 2. No acute infiltrates. Dictated and Authenticated by: Esvin Campos MD. Ordering:JEMIMA Lovelace MD
== END 2023-10-30 16:32 | disposition short-term general hospital (02) ==
PROVIDERS: Emergency Provider Emergency Medicine; PCP Family Medicine
DX: I24.9 Acute ischemic heart disease, unspecified (principal); R07.9 Chest pain, unspecified; R53.1 Weakness
CPT/HCPCS: 71275; 80053; 93005; 93308; 96365; 96372; 96375; 99291; 83735; 84484; 85025; 85730; 93010; J1644; J2305; J2405; J3490

== ENCOUNTER 2023-11-18 14:05 | Observation (INO) | payer OTHER, SELFPAY ==
[2023-11-18] VITALS (60 sets, daily range): BP systolic 129–181; BP diastolic 45–126; PULSE 44–110; RESP 13–33; TEMP 36.3–36.8; O2SAT 92–98
--- NOTE | 2023-11-18 14:07 | W.ED.GENAD ---
Discharge Plan Disposition Patient Disposition: Admit to [facility] Discharge Details Clinical Impression: Chest pain, unspecified Admit Date/Time: 11/18/23 20:33 Admit Provider: Mike Nicholson Attending Provider: Mike Nicholson Primary Care Provider: Rosie Mathews ED Provider: Radu Giron [facility] General Date/Time Provider Initiated Documentation: 11/18/23 14:07. HPI Narrative: MDM This is a mildly tachycardic afebrile and not hypotensive 83-year-old female dilated aortic root plus back pain and recent cardiac instrumentation concerning for the possibility of aortic dissection for which patient will be taken down for CT angiogram of her thorax abdomen pelvis. ECG is nonischemic however will obtain 2 sets of troponins to assess for ACS. Patient denies dysuria and frequency and as result my suspicion for pyelonephritis is low. I considered sepsis as patient is mildly tachycardic but in the absence of fevers dysuria and frequency I did not feel that the patient required broad-spectrum antibiotics or blood cultures. Will obtain a urinalysis. Patient did complete recent [place] [facility] Unfortunately culture was not taken at that time. She has had E. coli and Klebsiella growing in her urine in the past [facility]. She denies any dysuria from her recent [facility] hospitalization so I suspect that she may have asymptomatic bacteriuria secondary to colonization. No pain out of proportion to suggest necrotizing soft tissue infection. No cough to suggest pneumonia. Patient does not appear volume overloaded so my suspicion for acute heart failure is low so I did not send a proBNP. No shortness of breath to suggest PE so I did not send a D-dimer. Soft nontender tender abdomen so I am not concerned for any intra-abdominal process. No rash to chest to suggest zoster. No significant pericardial effusion and patient is not a dialysis patient so my suspicion for tamponade is low. Equal breath sounds and no trauma so doubt pneumothorax. Patient is neurologically intact and lacks saddle anesthesia so my suspicion for cauda equina is low as I do not feel that the patient requires an MRI of her back. Patient is on antiplatelet agents but is not anticoagulated and has had no recent spinal manipulation so my suspicion is low for spinal epidural hematoma. No CVA tenderness to suggest pyelonephritis. I considered ureterolithiasis however patient does not have a history of the same and she endorses bilateral and primarily midline back pain. No history of IV drug use nor fevers to suggest increased risk for spinal epidural abscess. No trauma to suggest increased risk for pathological fracture. Patient is mildly tachycardic will treat with 5 mg of metoprolol IV as patient is currently on metoprolol succinate 12.5 mg. 3 PM CBC lacks anemia thrombocytopenia and leukocytosis. No obvious dissection on my preliminary interpretation of CT scan. 3:37 PM Troponin normal. Comprehensive metabolic panel with no JUAN. Mild hyperglycemia but no anion gap and normal bicarbonate??not consistent with DKA. No LFT abnormalities. Normal reassuring TSH. Normal magnesium. CT angiogram of chest abdomen pelvis showed dilated but stable ascending aorta with no evidence of dissection. No other acute processes. 6:37 PM [address] Guzman from cards at [facility]. Negative repeat troponin. She advised observing the patient overnight in the hospital to trend her troponins. He advised reconsultation for any recurrent back pain. She advised blood pressure control continuation of dual antiplatelet therapy. 7:52 PM [address] spoke with Dr. Nicholson who agreed graciously to accept the patient for hospitalization. Chronic conditions affecting the care of the patient: Coronary artery disease History obtained from an outside historian: N/A External record review: [facility] [place] Diagnostic interpretations performed by me: Per my independent interpretation EKG shows: Narrow complex sinus tachycardia at a rate of 109 with first-degree AV block and a NM interval of 214 ms. Left axis. Nearly meeting criteria for LVH. Inferior T wave inversions appear similar to [facility] ECG November 01 this year. Mild upsloping ST segment in V2 new compared to prior dated earlier this month. ST segment flattening with new T wave inversions in V4, V5, and V6 new compared to prior. Not meeting occlusion [place] criteria. QTc within normal limits. ]Medications: Metoprolol Social determinants of health affecting disposition: N/A Management discussed with: Hospitalist cardiology Treatment/interventions considered:N/A Response to therapies provided: N/A HPI This is an 83-year-old female with known history of coronary artery disease status post recent stenting [place] [facility] [place] this month prior to the emergency department setting of a low back pain. Patient was recently treated for urinary tract infection. She was not having dysuria however at that time. She denies dysuria now. She says that her low back pain was reminiscent of her recent myocardial infarction. She said it occurred this morning while she was hanging a picture. She denies any trauma or falls. No shortness of breath. No saddle anesthesia. No fevers. No nausea no vomiting although patient does endorse heartburn. No leg swelling. Denies routine tobacco, ethanol, and illicits. Exam General: Well-appearing in no acute distress speaking in complete sentences. Head: Normocephalic, atraumatic. Eye: Extraocular eye movements intact. No conjunctival injection. No scleral icterus. Ear, nose, mouth, throat: Grossly normal inspection. Normal voice, handling secretions normally. Neck: Trachea midline. No midline cervical spinal tenderness. Cardiovascular: Well-perfused distal extremities. Regular rate and rhythm Respiratory: Nonlabored respiration. Clear lungs bilaterally Gastrointestinal: Nondistended abdomen. Soft nontender. No rebound. No guarding. Back: No midline thoracic nor lumbar spinal tenderness. No step-offs no deformities. No rash to back. Musculoskeletal: No edema. Moving all 4 extremities spontaneously. Skin: Normal for age and race, grossly normal temperature and turgor. No acute rash. Neurologic: Alert and appropriate, no apparent acute deficits. GCS 15. Psychiatric: Mood and manner are appropriate. Grooming and personal hygiene are appropriate. Related Data Home Medications Medication Instructions Recorded Confirmed ascorbate calcium (vitamin C) 500 1 tab PO DAILY 11/25/14 11/18/23 mg tablet aspirin 81 mg chewable tablet 1 tab PO DAILY 11/25/14 11/18/23 vitamin B complex (B-Complex 1 tab PO DAILY 11/25/14 11/18/23 tablet) vitamin E 100 unit capsule 100 unit PO DAILY 11/25/14 11/18/23 losartan 50 mg tablet 50 mg PO DAILY 02/12/22 11/18/23 oxybutynin chloride 5 mg tablet 5 mg PO DAILY 02/12/22 11/18/23 clopidogrel 75 mg tablet 75 mg PO DAILY 11/18/23 11/18/23 nitroglycerin 0.4 mg sublingual 0.4 mg sublingual Q5M 11/18/23 11/18/23 tablet Allergies Allergy/AdvReac Type Severity Reaction Status Date / Time hydrocodone Allergy Intermediate Itching Unverified 02/18/22 13:43 oxycodone HCl [From Percocet] Allergy Intermediate Itching Unverified 02/18/22 13:43 prednisone Allergy Intermediate Swelling/Ed Unverified 02/18/22 13:43 acosta General BRADLEY: 2 Medical Decision Making Quality:SDOH Health Related Social Needs: No Data to Display PFSH All Active Problems (Updated 11/18/23 @ 22:00 by TARA RAINEY) Atypical chest pain (Acute) CAD (coronary artery disease), [place] coronary artery (Acute) Chest pain, unspecified (Acute) Tinnitus, bilateral (Acute) Sensorineural hearing loss of both ears (Acute) Social History Smoking/Tobacco Use Status: Former Tobacco Use Smoking risk assessment performed?: Yes Alcohol Intake: never Drug use: Never Substance use type: does not use Housing: apartment Do you feel safe at home: Yes Do you feel safe in your relationship?: Yes POCUS Exam (ED) Limited Cardiac Exam DATE OF EXAM: 11/18/23 TIME OF EXAM: 14:48 PROVIDER THAT PERFORMED THE STUDY: Radu Giron IS THIS A REPEAT EXAM DURING THIS ENCOUNTER: no REASON FOR EXAM: Other indication: Back pain VISUALIZED STRUCTURES: Four Chambers, Left ventricle and LVOT VIEW OBTAINED: Apical 4-Chamber, Parasternal long-axis and Subxiphoid PERTINENT FINDINGS/IMPRESSION: No pericardial effusion and No RV dilation DIFFERENTIAL DIAGNOSES: Aortic outflow track greater than 4 cm, good squeeze, RV less than LV, no significant pericardial effusion. Exam complete
--- NOTE | 2023-11-18 14:15 | RT.EKG_ITS ---
APPROVED REPORT Exam: Resting ECG Reason for Exam: chest pain Patient Location: E HR:109 bpm ECG Measurements Heart Rate 109 AXIS AZ 214 P 28 QRSd 92 QRS -55 QT 364 T -52 QTc 492 Conclusion Sinus tachycardia...rate> 99 Borderline prolonged AZ interval...AZ >207, V-rate 91-120 Left ventricular hypertrophy...multiple voltage criteria Inferior infarct, old...Q >35mS, II III aVF Nonspecific T abnormalities, lateral leads...T <-0.10mV, I aVL V5 V6 Narrow complex sinus tachycardia at a rate of 109 with first-degree AV block and a AZ interval of 214 ms. Left axis. Nearly meeting criteria for LVH. Inferior T wave inversions appear similar to [facility] [place] November 01 this year. Mild upsloping ST segment in V2 new compared to prior dated earlier this ambika h. ST segment flattening with new T wave inversions in V4, V5, and V6 new compared to prior. Not me eting occlusion [place] criteria. QTc within normal limits.
[2023-11-18 14:43] LABS: Abs Immature Grans 0.02 10^3/uL (0.0-0.06); Absolute Basophil Count 0.06 10^3/uL (0.0-0.2); Absolute Eosinophil Count 0.34 10^3/uL (0.0-0.7); Absolute Lymphocyte Count 1.75 10^3/uL (1.2-3.4); Absolute Monocyte Count 0.71 10^3/uL (0.1-0.8); Absolute Neutrophil Count 4.08 10^3/uL (1.2-6.7); Basophils % 0.9 %; Eosinophils % 4.9 %; HCT 39.3 % (36.0-46.0); HGB 13.4 g/dL (11.2-15.7); Immature Grans % 0.3 %; Lymphocytes % 25.1 %; MCH 33.8 pg (27.0-33.0); MCHC 34.1 % (32.0-36.0); MCV 99 fL (80-95); MPV 10.9 fL (8.0-11.0); Monocytes % 10.2 %; Neutrophils % 58.6 %; Platelet Count 261 10^3/uL (130-400); RBC 3.96 10^6/uL (3.93-5.22); RDW 13.3 % (11.7-14.6); RDW-SD 48.7 fL; WBC 6.96 10^3/uL (4.4-10.8)
--- NOTE | 2023-11-18 14:58 | DI.CT_ITS ---
Exam(s) CT THORAX ABD/PEL CTA EXAM: CT THORAX ABD/PEL CTA CLINICAL HISTORY: Back chest pain dilated aortic root. TECHNIQUE: Imaging Protocol: Axial CT angiography was performed with multi-slice acquisition and m ulti-planar and/or 3D reconstructions. CONTRAST MATERIAL: Intravenous: Omnipaque 350 Contrast volume:structured data in ml Oral: / no COMPARISON: CR XR CHEST 2V PA LATERAL from 09/23/[address] CHEST PE CTA from 10/30/2023 FINDINGS: CHEST: Pulmonary Arteries: Bolus timing optimized for arterial phase. Pulmonary arteries not well opacified . Tracheobronchial tree: Patent where visualized. Mediastinum and Chloe: No dominant adenopathy or fluid collection. Pulmonary parenchyma: No consolidation or dominant measurable mass. Dependent changes posteriorly. Pleura: No effusion or pneumothorax. Heart: The heart is mildly dilated. coronary artery calcifications and stents are seen. Aorta: The ascending aorta is dilated at 4.8 cm, unchanged. Descending aorta is tortuous and measu res 2.6 cm. Bones: Right shoulder prosthesis. Advanced degenerative changes in the spine. Tubes, Catheters, and Lines: None ABDOMEN AND PELVIS: Abdomen: Celiac axis/mesenteric arteries: No evidence of occlusion or significant stenosis. Renal Arteries: Right no evidence of occlusion or significant stenosis. Main, superior renal artery shows calcific focus proximally causing moderate stenosis. There are 2 renal arteries perfusing each kidney. Aorta: Atherosclerotic changes. Ectatic. No evidence of occlusion or significant stenosis. No aneu rysm or dissection. Pelvis: Iliac Arteries: Atherosclerotic changes. No evidence of occlusion or significant stenosis. Common Femoral Arteries: No evidence of occlusion or significant stenosis. ABDOMEN: Liver: Normal density. No measurable mass. Portal, Superior Mesenteric, and Splenic Veins: Unremarkable. Gallbladder and Biliary Tract: No radiodense calculus or dilation. Pancreas: Normal density, no abnormal calcifications or inflammatory process. Spleen: Normal. Adrenals: No masses seen. Kidneys: Normal size, contour and axis. No radiodense stones or obstructive uropathy. No suspicious m asses seen. Bowel: No obstruction or bowel wall thickening. Mild diverticulosis. Peritoneal Cavity: No ascites, collection or mesenteric inflammatory response. Lymph Nodes: Within normal limits. Bones: Advanced degenerative changes in the spine. Hemangioma L3. Soft Tissues: Unremarkable. PELVIS: Bladder: Symmetric distention, no gross wall thickening. Reproductive Organs: Status post hysterectomy. Lymph Nodes: Within normal limits. Bones: Within normal limits for a. IMPRESSION: Dilated ascending aorta measuring 4.8 cm, stable. No evidence of dissection. No acute abnormality in the chest abdomen or pelvis. RADIATION DOSE DELIVERED: 1,047.65mGy.cm Total DLP DATA REPOSITORY: All CT scans at this facility are submitted to the National Radiology Data Registry (NRDR) Dose Index Registry (DIR) with the [employer] (A[employer]). RADIATION OPTIMIZATION: All CT scans at this facility use at least one of these dose optimization te chniques: automated exposure control; mA and/or kV adjustment per patient size (includes targeted exa ms where dose is matched to clinical indication); or iterative reconstruction.
[2023-11-18] MEDS: Normal Saline - Diluent 50 ML VIAL IJ (14:59)
[2023-11-18] MEDS: Omnipaque 350 MG/ML 500 ML BTL-Imaging package 100 ML IJ (15:02)
[2023-11-18] MEDS: Metoprolol 5 MG/5 ML VIAL IVP (15:03)
[2023-11-18] MEDS: ACETAMINOPHEN 1,000 MG/100 ML BTL 400 MG IVPB (15:05)
[2023-11-18 15:11] LABS: ALT 33 U/L (14-59); AST 29 U/L (15-37); Albumin 3.8 g/dL (3.4-5.0); Alkaline Phosphatase 63 U/L (46-116); Anion Gap 8.1 mmol/L (3-11); BUN 18 mg/dL (7-18); Bilirubin, Total 0.6 mg/dL (0.2-1.0); CO2 30.9 mmol/L (21.0-32.0); CREATININE 1.1 mg/dL (0.55-1.02); Calcium 9.9 mg/dL (8.5-10.1); Chloride 104 mmol/L (98-107); Estimated GFR 49.55 (mL/min/1.73m2); Glucose 126 mg/dL (74-106); Potassium 4.3 mmol/L (3.5-5.1); Sodium 143 mmol/L (136-145); TSH (W/Ref FT4) 3.39 uIU/mL (0.36-3.74); Total Protein 7.4 g/dL (6.4-8.2); Troponin I < 50 ng/L (< or =60)
[2023-11-18] MEDS: Aspirin 81 MG CHEW 324 MG CH (16:20)
[2023-11-18 17:33] LABS: Troponin I < 50 ng/L (< or =60)
--- NOTE | 2023-11-18 20:26 | W.PM.HP.N ---
Date of service: 11/18/23 Time of Service: 20:26 Assessment and Plan Assessment and plan (1) Atypical chest pain: Start date: 11/18/23 Status: Acute Assessment and plan: This is an 83-year-old lady who recently had cardiac catheterization with stenting of 3 vessels. She is 2 weeks out from this procedure and began to have back pain similar to her previous pain prompting cardiac catheterization. She reported to the ED and did not take nitroglycerin which she states it did not have at home. Her pain resolved. [facility] [place] recommended trending troponins and not starting heparin but continuing dual platelet therapy. Patient did have occasional tachycardic rate was seen to occur spontaneously without any change in activity or eating and self resolved with baseline sinus bradycardia. Current monitor will continue with trending troponins. If patient has recurrent symptoms recently will be called. If troponins increase agency will be reconsulted. She has been given cardiac rehabilitation soon. She also will be seeing cardiology in [place]. She is a full code. (2) CAD (coronary artery disease), [place] coronary artery: Start date: 11/18/23 Status: Acute Assessment and plan: Patient admitted 2 weeks ago with troponins negative. No acute EKG changes. Patient appears to have a cardiac dysrhythmia which is not diagnosed and may do well with Zio patch as an outpatient and close follow-up with cardiology. Attempt to capture sudden increase in heart rate which is almost doubling on secured entrance monitor while hospitalized. Patient may need to see EP if she has significant CAD with dysrhythmias. Qualifiers: Associated angina: with other forms of angina [place] vs. transplanted heart: [place] heart Qualified Code(s): I25.118 - Atherosclerotic heart disease of [place] coronary artery with other forms of angina pectoris (3) ACS (acute coronary syndrome): Status: Resolved Assessment and plan: Patient had acute coronary syndrome 2 weeks ago and this does not appear to be sustained event though similar to patient. She also has an ascending aortic aneurysm but no evidence of change or dissection. Continue to monitor cardiovascular symptoms with reduction of risk including weight loss with increased exercise. She was placed on high-dose Lipitor and this will be continued. Will attempt metoprolol although bradycardia may limit treatment. She in the ED but has normal tensive pressures metoprolol presently. Was hypertensive without (4) Aortic arch aneurysm: Status: Chronic Assessment and plan: Under 5 cm involving the ascending aorta with no change or indication of dissection/rupture. Qualifiers: Presence of rupture: without rupture Qualified Code(s): I71.22 - Aneurysm of the aortic arch, without rupture (5) Tachyarrhythmia: Status: Chronic Assessment and plan: ED physicians seem to think that patient has had this intermittent tachycardia in the past and this needs to be further evaluated with cardiology. Continue Zio patch and EP consultation if dysrhythmia causes significant symptoms. When visualized on monitor with sudden change heart rate from the 40s to the 100,s, it is not quite clear whether there are P waves with a consistent PA interval as with her bradycardic rate which is dominant. History of Present Illness History of Present Illness Chief Complaint: Chest/back discomfort with no sack keeper, recent cardiac stents Narrative: This is an 83-year-old female patient who presented to the ED with recurrent back pain status post cardiac stenting 2 weeks ago when she was found to have a non-STEMI with similar symptoms. She was transferred to [facility] and did have cardiac stenting x 3 at that time. She has not yet started cardiac rehabilitation and is fairly sedentary long-term. Her back pain was not brought on by activity or eating and she denies any associated symptoms such as diaphoresis or nausea. She also denies shortness of breath. She did not have nitroglycerin at home though is on her medication list. The pain did self resolved. In the ED she was evaluated and found to have normal troponins with no acute EKG changes. [facility] cardiology, Dr. Guzman was consulted and advised overnight elevation with troponin trending. She did not recommend IV heparin. If she had positive troponins or recurrent symptoms he advised reconsultation. He also advised continuation of dual antiplatelet therapy. Patient will be admitted and receive IV Lovenox for DVT prophylaxis. She had hypertension and tachycardia in the ED and did receive IV metoprolol medication but did not have a statin or beta-kristy listed and patient does not remember her meds well. The ED physician patient was on metoprolol 12.5 mg at home after recent hospitalization at [facility] with cardiac catheterization and stenting. Exam is patient was pain-free and comfortable. Patient does have a history of ascending aorta aneurysm which is less than 5 cm and stable by CTA of the chest done on this admission. With her back pain, she was concerned about this aneurysm. She is a vague historian. She is a full code. Review of Systems Narrative: 13 point review of systems otherwise unrevealing or stable. PFSH All Active Problems (Updated 11/19/23 @ 06:40 by Mike Nicholson) Tachyarrhythmia (Chronic) Aortic arch aneurysm (Chronic) Atypical chest pain (Acute) CAD (coronary artery disease), [place] coronary artery (Acute) Chest pain, unspecified (Acute) Tinnitus, bilateral (Acute) Sensorineural hearing loss of both ears (Acute) Social History Smoking/Tobacco Use Status: Former Tobacco Use Smoking risk assessment performed?: Yes Alcohol Intake: never Drug use: Never Substance use type: does not use Housing: apartment Do you feel safe at home: Yes Do you feel safe in your relationship?: Yes Meds Allergies and Home Medications Allergies Allergy/AdvReac Type Severity Reaction Status Date / Time hydrocodone Allergy Intermediate Itching Unverified 02/18/22 13:43 oxycodone HCl [From Percocet] Allergy Intermediate Itching Unverified 02/18/22 13:43 prednisone Allergy Intermediate Swelling/Ed Unverified 02/18/22 13:43 acosta Home Medications Medication Instructions Recorded Confirmed Type ascorbate calcium (vitamin C) 500 1 tab PO DAILY 11/25/14 11/18/23 History mg tablet aspirin 81 mg chewable tablet 1 tab PO DAILY 11/25/14 11/18/23 History vitamin B complex (B-Complex 1 tab PO DAILY 11/25/14 11/18/23 History tablet) vitamin E 100 unit capsule 100 unit PO DAILY 11/25/14 11/18/23 History losartan 50 mg tablet 50 mg PO DAILY 02/12/22 11/18/23 History oxybutynin chloride 5 mg tablet 5 mg PO DAILY 02/12/22 11/18/23 History clopidogrel 75 mg tablet 75 mg PO DAILY 11/18/23 11/18/23 History nitroglycerin 0.4 mg sublingual 0.4 mg sublingual Q5M 11/18/23 11/18/23 History tablet Exam Narrative Exam Narrative: General: Patient appears appropriate for age, moderately obese, alert and oriented x 3 in no acute distress. She is alert and oriented x 3 but is a vague historian not knowing her meds well. She does gradually remember recent details. HEENT: Normocephalic, eyes with pupils equal and reactive light symmetrically, extraocular movement intact and sclera anicteric. Oropharynx with moist mucosa and fair dentition. Neck: Supple without JVD. Back: Slightly stooped posture with no CVA tenderness. Lungs: Fair aeration and clear to station percussion. Breast: Exam deferred. Heart: Bradycardic rate and regular rhythm with rare extrasystole, no appreciable murmurs or gallops. On secured entrance monitor the patient has intermittent tachycardic rate above 100 with rest or activity but mostly is bradycardic below 50 around 45-48. Abdomen: Obese contour, soft nontender to palpation with no palpable hepatosplenomegaly. Bowel sounds positive. Genitalia/rectal: Exam deferred. Skin: Normal color, warm and dry. Neuro: Cranial nerves II through XII gross intact, no focalizing motor deficits or tremor. Extremities: Without clubbing, cyanosis or grossly pitting edema. Good capillary refill. Psych: Normal affect and mood. No abnormal thought processes. Remote and recent memory grossly intact the patient is a vague historian at times. 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 Results Imaging Imaging Studies: Exam(s) CT THORAX ABD/PEL CTA EXAM: CT THORAX ABD/PEL CTA CLINICAL HISTORY: Back chest pain dilated aortic root. TECHNIQUE: Imaging Protocol: Axial CT angiography was performed with multi-slice acquisition and multi-planar and/or 3D reconstructions. CONTRAST MATERIAL: Intravenous: Omnipaque 350 Contrast volume:structured data in ml Oral: / no COMPARISON: CR XR CHEST 2V PA LATERAL from 09/23/[address] CHEST PE CTA from 10/30/2023 FINDINGS: CHEST: Pulmonary Arteries: Bolus timing optimized for arterial phase. Pulmonary arteries not well opacified. Tracheobronchial tree: Patent where visualized. Mediastinum and Chloe: No dominant adenopathy or fluid collection. Pulmonary parenchyma: No consolidation or dominant measurable mass. Dependent changes posteriorly. Pleura: No effusion or pneumothorax. Heart: The heart is mildly dilated. coronary artery calcifications and stents are seen. Aorta: The ascending aorta is dilated at 4.8 cm, unchanged. Descending aorta is tortuous and measures 2.6 cm. Bones: Right shoulder prosthesis. Advanced degenerative changes in the spine. Tubes, Catheters, and Lines: None ABDOMEN AND PELVIS: Abdomen: Celiac axis/mesenteric arteries: No evidence of occlusion or significant stenosis. Renal Arteries: Right no evidence of occlusion or significant stenosis. Main, superior renal artery shows calcific focus proximally causing moderate stenosis. There are 2 renal arteries perfusing each kidney. Aorta: Atherosclerotic changes. Ectatic. No evidence of occlusion or significant stenosis. No aneurysm or dissection. Pelvis: Iliac Arteries: Atherosclerotic changes. No evidence of occlusion or significant stenosis. Common Femoral Arteries: No evidence of occlusion or significant stenosis. ABDOMEN: Liver: Normal density. No measurable mass. Portal, Superior Mesenteric, and Splenic Veins: Unremarkable. Gallbladder and Biliary Tract: No radiodense calculus or dilation. Pancreas: Normal density, no abnormal calcifications or inflammatory process. Spleen: Normal. Adrenals: No masses seen. Kidneys: Normal size, contour and axis. No radiodense stones or obstructive uropathy. No suspicious masses seen. Bowel: No obstruction or bowel wall thickening. Mild diverticulosis. Peritoneal Cavity: No ascites, collection or mesenteric inflammatory response. Lymph Nodes: Within normal limits. Bones: Advanced degenerative changes in the spine. Hemangioma L3. Soft Tissues: Unremarkable. PELVIS: Bladder: Symmetric distention, no gross wall thickening. Reproductive Organs: Status post hysterectomy. Lymph Nodes: Within normal limits. Bones: Within normal limits for a. IMPRESSION: Dilated ascending aorta measuring 4.8 cm, stable. No evidence of dissection. No acute abnormality in the chest abdomen or pelvis. Labs 11/18/23 14:34 11/18/23 14:34 Labs: Laboratory Results - last 24 hr 11/18/23 11/18/23 14:34 17:10 WBC 6.96 RBC 3.96 Hgb 13.4 Hct 39.3 MCV 99 H MCH 33.8 H MCHC 34.1 RDW 13.3 Plt Count 261 MPV 10.9 Immature Gran % 0.3 Neutrophils % 58.6 Lymphocytes % 25.1 Monocytes % 10.2 Eosinophils % 4.9 Basophils % 0.9 Nucleated RBC % 0.0 Absolute Neutrophils 4.08 Absolute Lymphocytes 1.75 Absolute Monocytes 0.71 Absolute Eosinophils 0.34 Absolute Basophils 0.06 Sodium 143 Potassium 4.3 Chloride 104 Carbon Dioxide 30.9 Anion Gap 8.1 BUN 18 Creatinine 1.1 H Est GFR (CKD-EPI 2020) 49.55 Glucose 126 H Calcium 9.9 Magnesium 2.0 Total Bilirubin 0.6 AST 29 ALT 33 Alkaline Phosphatase 63 Troponin I < 50 < 50 Total Protein 7.4 Albumin 3.8 TSH 3.39 ABO/Rh O Positive Antibody Screen NEGATIVE Last Vital Signs Temp 36.8 C 11/18/23 14:09 Pulse 53 L 11/18/23 20:16 Resp 17 11/18/23 20:16 BP 174/87 H 11/18/23 20:16 Pulse Ox 97 11/18/23 20:16 Time Spent Time spent with Patient: >75 minutes Time was spent: preparing to see the patient(eg.review tests), obtaining and/or reviewing separately otained hiistory, ordering medications,tests, procedures, referring, communicating with other health transitional care manager, indepentently interpreting results, counseling the patient and care coordination
[2023-11-18] MEDS: Calcium Carbonate *TUMS* 500 MG CHEW (20:34)
--- NOTE | 2023-11-18 22:33 | NUR.NOTE ---
at bedside. Provider at Bedside MD Nicholson. He notified me at bedside to hold 2100 metoprolol 25mg po due to pt bradycardia. he reported re-assess at 0300 dose notify him, if pt sustains bradycardia to have a lowered dose of metoprolol. Nursing Note:
[2023-11-18 22:48] LABS: Troponin I < 50 ng/L (< or =60)
[2023-11-18] MEDS: Enoxaparin 40 MG/0.4 ML SYR SC (23:29)
[2023-11-18] MEDS: Atorvastatin 40 MG TAB 80 MG PO (23:32)
[2023-11-19 01:03] VITALS: BP 148/77; PULSE 48; RESP 16; TEMP 35.7; O2SAT 98
--- NOTE | 2023-11-19 01:22 | NUR.NOTE ---
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 Nursing Note:
[2023-11-19 01:26] LABS: Troponin I < 50 ng/L (< or =60)
[2023-11-19 03:37] VITALS: BP 127/64; PULSE 50; RESP 16; TEMP 35.8; O2SAT 96
[2023-11-19 04:57] LABS: Bilirubin Negative (Negative); Blood Negative (Negative); Clarity Clear (Clear); Glucose Negative (Negative); Ketones Negative (Negative); Leukocyte Esterase Negative (Negative); Nitrite Negative (Negative); Urobilinogen 0.2 mg/dL (Up to 0.2); pH 5.5 (5-8)
--- NOTE | 2023-11-19 05:30 | RT.EKG_ITS ---
APPROVED REPORT Exam: Resting ECG Reason for Exam: rate change Patient Location: I HR:45 bpm ECG Measurements Heart Rate 45 AXIS DC 233 P 107 QRSd 113 QRS -35 QT 540 T -64 QTc 468 Conclusion Sinus bradycardia...rate< 50 Prolonged DC interval...DC >230, V-rate 30- 49 Incomplete RBBB and LAFB...axis(240,-40), S>R II III aVF Abnormal R-wave progression, late transition...QRS area<0 in V5/V6 Left ventricular hypertrophy...multiple voltage criteria Abnormal T, consider ischemia, diffuse leads...T <-0.20mV, ant/lat/inf
[2023-11-19 07:00] LABS: HCT 37.4 % (36.0-46.0); HGB 12.7 g/dL (11.2-15.7); MCV 100 fL (80-95); Platelet Count 231 10^3/uL (130-400); RBC 3.74 10^6/uL (3.93-5.22); RDW 13.4 % (11.7-14.6); RDW-SD 49.7 fL; WBC 7.03 10^3/uL (4.4-10.8)
[2023-11-19 07:28] LABS: ALT 24 U/L (14-59); AST 24 U/L (15-37); Albumin 3.3 g/dL (3.4-5.0); Alkaline Phosphatase 53 U/L (46-116); Anion Gap 9.9 mmol/L (3-11); BUN 17 mg/dL (7-18); Bilirubin, Total 0.5 mg/dL (0.2-1.0); CO2 26.1 mmol/L (21.0-32.0); Calcium 9.8 mg/dL (8.5-10.1); Chloride 105 mmol/L (98-107); Estimated GFR 55.55 (mL/min/1.73m2); Glucose 99 mg/dL (74-106); Magnesium 1.9 mg/dL (1.8-2.4); Potassium 3.7 mmol/L (3.5-5.1); Sodium 141 mmol/L (136-145); Total Protein 6.6 g/dL (6.4-8.2); Troponin I < 50 ng/L (< or =60)
[2023-11-19 08:22] VITALS: BP 134/70; PULSE 108; RESP 18; TEMP 36.3; O2SAT 94
[2023-11-19] MEDS: Clopidogrel 75 MG TAB PO (09:29)
[2023-11-19] MEDS: Losartan 50 MG TAB PO (09:29)
[2023-11-19] MEDS: Ascorbic Acid 500 MG TAB PO (09:29)
[2023-11-19] MEDS: Vitamins B Comp w/C TAB 1 TAB PO (09:29)
[2023-11-19] MEDS: Aspirin 81 MG CHEW PO (09:29)
[2023-11-19] MEDS: Oxybutynin 5 MG TAB PO (09:29)
[2023-11-19] MEDS: Normal Saline Flush 10 ML SYR IVP (09:30)
--- NOTE | 2023-11-19 10:58 | W.PM.DS.N ---
Date of service: 11/19/23 Time of Service: 10:59 DS: Diagnosis Discharge Diagnosis (1) Atypical chest pain: Status: Acute (2) CAD (coronary artery disease), little traverse coronary artery: Status: Acute (3) ACS (acute coronary syndrome): Status: Resolved (4) Aortic arch aneurysm: Status: Chronic (5) Tachyarrhythmia: Status: Chronic Discharge Plan Disposition Patient Disposition: Home Condition: Good Discharge Details Reason For Visit: CAD with stenting.Atypical Chest Pain,Aneurysm Admit Date/Time: 11/18/23 20:33 Admit Provider: Mike Nicholson Attending Provider: Mike Nicholson Primary Care Provider: Rosie Mathews [facility] Course Hospital Course: This is an 83-year-old female with a history of coronary artery disease and recent stenting who presented to the [facility] ED for evaluation of low back pain reminiscent of previous myocardial infarction. No dysuria, dyspnea, saddle anesthesia, fevers, or nausea/vomiting. Experienced the pain while hanging a picture, no history of trauma or falls. In the ED mildly tachycardic but afebrile and not hypotensive. ECG showing sinus tachycardia, first-degree AV block, and possible LVH; sinus bradycardia. Troponin levels within normal range. CT angiogram showing dilated ascending aorta but no evidence of dissection. CBC, comprehensive metabolic panel, and other tests show no acute abnormalities. Patient was given metoprolol in the ED for hypertension and tachycardia. Patient attributes pain to hanging a picture, no evidence of trauma. Cardiology at [facility], Dr Guzman was consulted. Observation advised with continuation of dual antiplatelet therapy, no heparin. Blood pressure control recommended, along with monitoring troponin levels. No immediate need for broad-spectrum antibiotics or further invasive procedures. Overall, the patient's symptoms and medical history suggested a need for careful monitoring and further assessment to rule out any cardiac issues or complications related to recent procedures. Patient was placed on observation status on the medical floor. Troponin's continued to be negative. Patient denied pain, no back pain, no chest pain, no shortness of breath. Patient has appointment with cardiology this , November 23. Patient had bradycardia overnight, 50's, normotensive. Hold metoprolol. Patient is discharged with a cardiac event monitor. Home Meds and New Rx's Prescriptions: Continued vitamin E 100 UNIT capsule 100 unit PO DAILY Patient Comments: Pt. takes 1000 IU QD. ascorbate calcium (vitamin C) 500 MG tablet 1 tab PO DAILY aspirin 81 MG tablet,chewable 1 tab PO DAILY vitamin B complex [B-Complex] 1 EACH tablet 1 tab PO DAILY clopidogrel 75 mg tablet 75 mg PO DAILY nitroglycerin 0.4 mg tablet, sublingual 0.4 mg sublingual Q5M losartan 50 mg tablet 50 mg PO DAILY Patient Comments: TAKE ONE TABLET BY MOUTH EVERY DAY oxybutynin chloride 5 mg tablet 5 mg PO DAILY Patient Comments: TAKE ONE TABLET BY MOUTH AT BEDTIME NEEDED Discharge Instructions Instructions: Chest Pain (DC), Back Pain (GEN), Holter Monitor (GEN) Additional Instructions: You experienced atypical chest pain, which means the symptoms do not fit the classic pattern of heart-related chest pain. Potential causes for this can include musculoskeletal issues (such as muscle strain or rib injury), gastrointestinal problems (such as acid reflux or inflammation of the esophagus), anxiety or panic attacks, or other non-cardiac causes. 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 You had some fast heart rhythms and some slow rhythms, you are being discharged with a monitoring manager for 30 days, or until your cardiolgist recommends. 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 Continue home medications. Any sudden onset of severe chest pain, shortness of breath, dizziness, fainting, or other concerns call 911 or go to nearest emergency department. 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 ) Activity:: Activity as Tolerated Equipment/Supplies:: No Equipment Needed Diet:: Low Sodium Discharge Orders Discharge Orders: Discharge Order (Routine); Ordered 11/19/23 Ordered By: Svetlana Andrews Other Ambulatory Orders: Cardiac Event Recorder (Routine) Timeframe: 20231119 Facility: [facility] - Location: Respiratory Therapy Ordered By: Svetlana Andrews Discharge Data Discharge Date/Time-TO BE ENTERED AT DEPARTURE: 11/19/23 12:54 DS: Summary Time Spent with Patient providing and/or coordinating discharge services: Greater than 30 minutes Status at Discharge Functional status at discharge: independent ambulation Overall status at discharge: patient is progressing back to baseline Mental Status: mental status grossly normal Speech and Movement: speech and movement normal Mood: congruent mood Affect: normal affect Quality:SDOH Health Related Social Needs: Health related social needs details pt reports she hasnt been sick in 2-years. reports once she was at [facility] she felt she caught a cold. Health related social needs details: pt reports she hasnt been sick in 2-years. reports once she was at [facility] she felt she caught a cold. Exam Const General: cooperative, comfortable and no acute distress Orientation: alert and oriented x3 Eyes Pupils: PERRL Resp Effort & Inspection: normal respiratory effort Auscultation: clear to auscultation bilaterally Cardio Rate: bradycardic (50's asymptomatic ) Rhythm: regular rhythm Skin General skin exam: no rashes or lesions noted Neuro General: patient alert and patient oriented x3 Cognition: normal cognition Speech: speech normal Gait: normal gait Motor: strength 5/5 throughout Psych Mental Status: mental status grossly normal Speech and Movement: speech and movement normal Mood: congruent mood Affect: normal affect DS: Data Vitals/I&O Vitals and I&O: Vital Signs Temperature 36.3 C L 11/19/23 08:22 Temperature Source Temporal Artery Scan 11/19/23 08:22 Pulse 108 H 11/19/23 08:22 Pulse Rhythm Irregular 11/19/23 07:30 Pulse 53 L 11/18/23 20:16 Respiratory Rate 18 11/19/23 08:22 Respiratory Effort Normal 11/19/23 07:30 Respiratory Depth Normal 11/19/23 07:30 Respiratory Pattern Normal 11/19/23 07:30 Blood Pressure 134/70 11/19/23 08:22 Blood Pressure Mean 108 11/18/23 20:16 Blood Pressure Position Sitting 11/18/23 14:09 Pulse Oximetry 94 11/19/23 08:22 Oxygen Delivery Method Room Air 11/19/23 08:22 Oxygen Flow Rate 0 11/19/23 08:22 Pain Level 0 11/19/23 08:22 Comment HR called over radio x2 11/19/23 08:22 Intake & Output 11/18/23 11/18/23 11/19/23 11:59 23:59 11:59 Intake Total 100 / 100 Output Total 250 / 250 250 / 250 Balance -150 / -150 -250 / -250 Weight 67.585 kg 68.1 kg Intake: IV 100 / 100 Output: Urine 250 / 250 250 / 250 Other: Urine Color Yellow Yellow Urine Appearance Clear Clear Comment toilet insert clean catch ua collected. Data Completed and Pending Labs on day of discharge: Labs from last 24 hours 11/19/23 11/19/23 11/19/23 06:32 03:14 02:37 WBC 7.03 RBC 3.74 L Hgb 12.7 Hct 37.4 MCV 100 H MCH 34.0 H MCHC 34.0 RDW 13.4 Plt Count 231 MPV 11.0 Immature Gran % Neutrophils % Lymphocytes % Monocytes % Eosinophils % Basophils % Nucleated RBC % Absolute Neutrophils Absolute Lymphocytes Absolute Monocytes Absolute Eosinophils Absolute Basophils Sodium 141 Potassium 3.7 Chloride 105 Carbon Dioxide 26.1 Anion Gap 9.9 BUN 17 Creatinine 1.0 Est GFR (CKD-EPI 2020) 55.55 Glucose 99 Calcium 9.8 Magnesium 1.9 Total Bilirubin 0.5 AST 24 ALT 24 Alkaline Phosphatase 53 Troponin I < 50 Cancelled Total Protein 6.6 Albumin 3.3 L TSH Urine Color Yellow Urine Clarity Clear Urine pH 5.5 Ur Specific Stanley 1.020 Urine Protein Negative Urine Ketones Negative Urine Blood Negative Urine Nitrite Negative Urine Bilirubin Negative Urine Urobilinogen 0.2 Ur Leukocyte Esterase Negative Urine Glucose Negative ABO/Rh Antibody Screen 11/19/23 11/18/23 11/18/23 01:00 22:21 17:10 WBC RBC Hgb Hct MCV MCH MCHC RDW Plt Count MPV Immature Gran % Neutrophils % Lymphocytes % Monocytes % Eosinophils % Basophils % Nucleated RBC % Absolute Neutrophils Absolute Lymphocytes Absolute Monocytes Absolute Eosinophils Absolute Basophils Sodium Potassium Chloride Carbon Dioxide Anion Gap BUN Creatinine Est GFR (CKD-EPI 2020) Glucose Calcium Magnesium Total Bilirubin AST ALT Alkaline Phosphatase Troponin I < 50 < 50 < 50 Total Protein Albumin TSH Urine Color Urine Clarity Urine pH Ur Specific Stanley Urine Protein Urine Ketones Urine Blood Urine Nitrite Urine Bilirubin Urine Urobilinogen Ur Leukocyte Esterase Urine Glucose ABO/Rh Antibody Screen 11/18/23 14:34 WBC 6.96 RBC 3.96 Hgb 13.4 Hct 39.3 MCV 99 H MCH 33.8 H MCHC 34.1 RDW 13.3 Plt Count 261 MPV 10.9 Immature Gran % 0.3 Neutrophils % 58.6 Lymphocytes % 25.1 Monocytes % 10.2 Eosinophils % 4.9 Basophils % 0.9 Nucleated RBC % 0.0 Absolute Neutrophils 4.08 Absolute Lymphocytes 1.75 Absolute Monocytes 0.71 Absolute Eosinophils 0.34 Absolute Basophils 0.06 Sodium 143 Potassium 4.3 Chloride 104 Carbon Dioxide 30.9 Anion Gap 8.1 BUN 18 Creatinine 1.1 H Est GFR (CKD-EPI 2020) 49.55 Glucose 126 H Calcium 9.9 Magnesium 2.0 Total Bilirubin 0.6 AST 29 ALT 33 Alkaline Phosphatase 63 Troponin I < 50 Total Protein 7.4 Albumin 3.8 TSH 3.39 Urine Color Urine Clarity Urine pH Ur Specific Stanley Urine Protein Urine Ketones Urine Blood Urine Nitrite Urine Bilirubin Urine Urobilinogen Ur Leukocyte Esterase Urine Glucose ABO/Rh O Positive Antibody Screen NEGATIVE PFSH All Active Problems (Updated 11/19/23 @ 10:47 by Svetlana Andrews NP) Tachyarrhythmia (Chronic) Aortic arch aneurysm (Chronic) Atypical chest pain (Acute) CAD (coronary artery disease), little [place] coronary artery (Acute) Chest pain, unspecified (Acute) Tinnitus, bilateral (Acute) Sensorineural hearing loss of both ears (Acute) Social History Smoking/Tobacco Use Status: Former Tobacco Use Smoking risk assessment performed?: Yes Alcohol Intake: never Drug use: Never Substance use type: does not use Housing: apartment Do you feel safe at home: Yes Do you feel safe in your relationship?: Yes Time Spent with Patient Time Spent with Patient: 45-69 minutes Time was spent: preparing to see the patient(eg.review tests), ordering medications,tests, procedures, referring, communicating with other health healthcare administration intern, indepentently interpreting results, counseling the patient and care coordination
[2023-11-19 11:31] VITALS: BP 134/63; PULSE 50; RESP 18; TEMP 36.6; O2SAT 93
== END 2023-11-19 12:54 | disposition home or self-care (01) | DRG 303 ==
LOC: ER 20:22 → MS 11-19 10:45
PROVIDERS: Admitting Provider Family Medicine; Emergency Provider Emergency Medicine; PCP Family Medicine; Visit Provider Family Medicine
DX: I25.118 Atherosclerotic heart disease of native coronary artery with other forms of angina pectoris; I71.22 Aneurysm of the aortic arch, without rupture; R00.0 Tachycardia, unspecified; Z95.5 Presence of coronary angioplasty implant and graft; H90.3 Sensorineural hearing loss, bilateral; Z87.891 Personal history of nicotine dependence; H93.13 Tinnitus, bilateral
CPT/HCPCS: 00123; 36415; 71275; 80053; 85027; 86850; 86900; 86901; 93005; 93270; 93308; 96365; 96375; 99285; J1650; 74174; 81003; 83735; 84443; 84484; 85025; 93010; 99223; 99239; G0378; J0131

== ENCOUNTER 2023-12-16 10:00 | Outpatient (RCR) | payer OTHER, SELFPAY ==
--- NOTE | 2023-12-16 11:44 | NUR.NOTE ---
Nursing Note:Patient noted to have fluctuation with HR today in CR. Resting HR noted to be 42 and patient's HE noted to go up into the low to mid 100's at rest and with activity. ECG strips captured documenting these rate changes. Patient denied any dizziness or lightheadedness, SOB, chest pain or pressure or any other symptoms. Nursing spoke with Dr. Betsy Gomez and info faxed with this data. Patient left ambulatoru in no apparent distress. S/S to seek care urgently reviewed with patient and she stated understanding. Nursing also went over all of patient's medication as she requested this.
== END 2023-12-18 23:59 | disposition home or self-care (01) ==
LOC: CR 10:00
PROVIDERS: PCP Family Medicine; Visit Provider Internal Medicine Cardiovascular Disease
DX: Z95.5 Presence of coronary angioplasty implant and graft (principal)
CPT/HCPCS: S9472

== ENCOUNTER 2023-12-26 07:12 | Outpatient (CLI) | payer OTHER, SELFPAY ==
--- NOTE | 2023-12-26 15:11 | W.CARDEVENT ---
Date of service: 12/26/23 Time of Service: 15:11 Cardiac Event Recorder Referring Provider:: Svetlana Andrews Indications:: Chest pain and tachycardia Cardiac Event Note: This is a cardiac event monitor. Patient was monitored for 24 days 6 hours Predominant rhythm was sinus. Average heart rate was 70. Minimum was 42, maximum 144 Atrial premature beats were seen There was no atrial fibrillation, no high-grade AV block, no pauses greater than 3 seconds There were no apparent patient symptoms
== END 2023-12-26 07:13 | disposition home or self-care (01) ==
LOC: CARDOPNVT 07:12
PROVIDERS: PCP Family Medicine; Visit Provider Internal Medicine Cardiovascular Disease
DX: R07.89 Other chest pain (principal); I49.1 Atrial premature depolarization
CPT/HCPCS: 93272

== ENCOUNTER 2024-01-18 10:04 | Outpatient (RCR) | payer OTHER, SELFPAY | END 2024-01-18 23:59 | disposition home or self-care (01) | LOC: CR 10:04 | PROVIDERS: PCP Family Medicine; Visit Provider Internal Medicine Cardiovascular Disease | DX: R07.89 Other chest pain (principal); R00.0 Tachycardia, unspecified; I10 Essential (primary) hypertension | CPT/HCPCS: S9472 ==

== ENCOUNTER 2024-01-27 01:23 | Outpatient (CLI) | payer OTHER, SELFPAY ==
--- NOTE | 2024-01-27 11:19 | TELEFU_ITS ---
Date of service: 01/27/24 Time of Service: 09:00 Nutrition Note NOTE: Lyla comes in for referred nutrition visit regarding MNT for HLD. Anthropometrics: 11/09/23 60 152lbs (68.95kg) with a BMI of 29.7 Meds: atorvastatin, clopidogrel, losartan, metoprolol, nexium, NGL, oxybutynin, spironolactone, B12, Vit C PMH: Coronary artherosclerosis, HTN, Heartburn, chronic back pain She is a patient at [facility] cardiac rehab and currently goes M, W and F each week along with PT - she often gets overwhelmed with appointments lately. She lives at home alone and has daughter down the street, Iris who checks in on her and helps out. She usually only eats 2 meals per day - either breakfast and late lunch or early lunch and dinner. She has one cup of coffee per day with coffee mate creamer powder. Will drink the equivalent of about 2 glasses of water throughout the day - does not drink juice or other sugar bevs. Breakfast this morning had tomato sandwich with butter (might be toast with peanut butter, butter and honey or it might be great grains cereal, oats, crm of wheat) Per pt account/history of meals and food choices, her usual diet assessed in lower in fiber, high in sat fat and ,any refined CHO choices. low protein intake between 2 meals with sometimes not a significant protein choice present. We discussed rhodes as a better option for tomato sandwiches and such and encouraged more plant oils than butter. Also discussed having a protein choice at meals if possible. Encouraged regular half and half or skim milk etc, to replace coffee creamer powder as it most likely is a source of oxidized fat, could contain transfat. Encouraged colorful produce often and trying to fit in a 3rd meal as a snack perhaps to help meet her nutrition needs. We reviewed HLD educational handout from [facility]. Lyla will work at reducing saturated fat as a first focus point. Gave her my contact info should she want more resources/have any questions Time Spent in Nutritional Counseling and Treatment: 25 min
== END 2024-01-27 01:24 | disposition home or self-care (01) ==
LOC: DS 01:23
PROVIDERS: PCP Family Medicine; Visit Provider Dietitian, Registered
DX: E78.5 Hyperlipidemia, unspecified (principal)
CPT/HCPCS: 00123; 97802

== ENCOUNTER 2024-02-17 10:24 | Outpatient (RCR) | payer OTHER, SELFPAY ==
--- OUTSIDE RECORDS SUMMARY | 2024-01-27 11:16 | XMS_ITS | Clinical Summary ---
Author Organization [facility] Address [facility] [place] [address] Care Team Providers Care Crop Production Advisor Name Role Phone Masood Pierson MD Primary Care Provider [phone] Allergies Active Allergy Reactions Criticality Noted Date Comments Hydrocodone CIS - Nausea/Vomiting Hydrocortisone CIS - swelling Oxycodone-Acetaminophen CIS - Nausea/Vomiting Penicillins Itching Low 10/30/2023 Prednisone 11/24/2023 swelling Medications Medication Sig Dispensed Refills Start Date End Date Status CIS Free Text Med - vitamin b 125 complex 01/30/2008 Act emily ASCORBIC ACID (VITAMIN C ORAL) 01/30/2008 Active CYANOCOBALAMIN, VITAMIN B-12, (VITAMIN B-12 ORAL) 01/30/2008 Activ e CALCIUM ORAL 01/30/2008 Active aspirin EC 81 mg EC (DR) tablet Take 1 tablet by mouth daily. 30 tablet 3 11/04/2023 Active atorvastatin (Lipitor) 80 mg tablet Take 1 tablet by mouth every evening. 90 tablet 3 11/03/2023 Active clopidogreL (Plavix) 75 mg tablet Take 1 tablet by mouth daily. 90 tablet 3 11/04/2023 Active losartan (Cozaar) 50 mg tablet Take 1 tablet by mouth daily. 90 tablet 3 11/04/2023 Active metoprolol succinate XL (Toprol-XL) 25 mg ER 24 hr tablet Take 0.5 tablets by mouth daily. 30 tablet 12 11/04/2023 Active nitroGLYcerin (Nitrostat) 0.[address] 1 tablet under the tongue every 5 minutes as needed for Chest pain. 90 tablet 12 11/03/2023 Active spironolactone (Aldactone) 25 mg tablet Take 1 tablet by mouth daily. 90 tablet 3 11/04/2023 Active oxyBUTYnin (Ditropan) 5 mg tablet Take 5 mg by mouth. 10/03/2023 Active Active Problems Problem Noted Date Diagnosed Date Cardiomyopathy, ischemic 11/24/2023 Overview (11/24/2023): 10/2023 (at time of NSTE-ACS): EF 64%, basal inferior HK. No VHD Assessment & Plan (11/24/2023 1:19 PM EDT): No failure by history nor exam. - Diuresis: none - Cardioprotection: as directed for HTN Ascending aorta dilatation 11/24/2023 Overview (11/24/2023): 10/2023 TTE: ascending 46 mm. Hyperpiesia 11/24/2023 Assessment & Plan (11/24/2023 1:19 PM EDT): Very well controlled - losartan 50 - aldactone 25 ASCVD (arteriosclerotic cardiovascular disease) 10/30/2023 Overview (11/24/2023): Cardiac Catheterization: (10/2023) RIGHT dominance Indication: NSTE-ACS LVEDP 15 Artery Lesion Intervention LM mild LAD mild LCx Prox 60 Mid 80 3.5 x 15 [place] 3.5 x 15 Andrea RCA Mid AoCTO. Collats from Cx 4.0 x 38 [place] NB: RCA initially intervened; Cx 2 days later Assessment & Plan (11/24/2023 1:19 PM EDT): No angina per history. In retrospect, being that none of her presenting symptoms improve and she has no improvement in exerttion, I think the cath findings were predominantly chronic, only developing acuity (in both thrombus and clinical realms) due to the hypertension on presentation. She can resume typical activities. - Anti-Thrombosis: asa 81, plavix 75. The latter through 10/2024 - Anti- Lipemic: lipitor 80 - Anti- Anginals: GTN PRN, toprol 12.5 Encounters Date Type Department Care Team Description 12/16/2023 Telephone Cardiology at [address] [phone] Izaiah Meyer MD 11/24/2023 10:40 AM EDT Office Visit Cardiology at [address] [phone] Izaiah Meyer MD ASCVD (arteriosclerotic cardiovascular disease); Cardiomyopathy, ischemic; Ascending aorta dilatation; Hyperpiesia 11/24/2023 Travel 11/18/2023 Telephone Cardiology at [address] [phone] Cheryl Guzman MD 11/18/2023 [place] [address] 11/03/2023 Telephone Cardiology at [address] [phone] 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 Machado, 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; Coronary Artery Disease 11/01/2023 3:33 PM EDT - 11/01/2023 5:03 PM [place] [phone] Rosa Dewey MD CARDIAC CATHETERIZATION 10/30/2023 5:11 PM EDT - 11/03/2023 5:13 PM EDT Hospital Encounter Heart and Vascular Unit Level 4 [place] [address] Rosa Dewey MD Williams, Eric M, MD Bensimhon, Hannah F, MD 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; Tachycardia; Unstable angina Discharge Disposition: Home 10/30/2023 5:00 PM EDT - 10/30/2023 5:10 PM EDT Hospital Encounter [facility] [place] [phone] Rosa Dewey MD Discharge Disposition: Home 10/30/2023 5:00 PM EDT Ancillary Procedure [place] [phone] Izaiah Meyer MD 10/30/2023 4:25 PM EDT - 10/30/2023 5:27 PM [place] [phone] Rosa Dewey MD CARDIAC CATHETERIZATION 10/30/2023 Telephone Cardiology [place] [phone] Jose Lee MD 10/30/2023 Notes [place] [phone] Jose Lee MD 10/30/2023 External [place] [phone] from Last 3 Months Social History Tobacco Use Types Packs/Day Years Used Date Smoking Tobacco: Former Smokeless Tobacco: Never Alcohol Use Standard Drinks/Week Comments Not Currently 0 (1 standard drink = 0.6 oz pur e alcohol) [facility] Utilities Answer Date Recorded In the past 12 months has th e [employer], gas, oil, or water [employer] threatened to shut off services in your home? No 11/01/2023 Hunger Vital Sign Answer Date Recorded Within the past 12 months, y ou worried that your food would run out before you got the money to buy more. Never true 11/01/19 24 Within the past 12 months, t he food you bought just didn't last and you didn't have money to get more. Never true 11/01/2023 PRAPARE - Transportation Answer Date Re corded In the past 12 months, has l ack of transportation kept you from medical appointments or from getting medications? No 10/18 In the past 12 months, has l ack of transportation kept you from meetings, work, or from getting things needed for daily living? No 11/01/2023 Housing Stability Vital Sign Answer Mukesh e Recorded In the last 12 months, was t here a time when you were not able to pay the mortgage or rent on time? No 11/01/2023 In the last 12 months, how many places have you lived? 1 11/01/2023 In the last 12 months, was t here a time when you did not have a steady place to sleep or slept in a senior care (including now)? No 11/01/2023 DH IPV Inpatient Questions Answer Date Recorded Does Anyone Try to Keep You From Having Contact with Others or Doing Things Outside Your Home? no 10/30/2023 Feels Threatened by Someone no 10/18 Feels Unsafe at Home or Work/School no 10/30/2023 Physical Signs of Abuse Present no 10/30/2023 Sex and Gender Information Value Date Recorded Sex Assigned at Not on file Gender Identity Not on file Sexual Orientation Not on file Last Filed Vital Signs Vital Sign Reading Time Taken Comments Blood Pressure 126/76 11/24/2023 11:03 AM EDT Pulse 51 11/24/2023 11:03 AM EDT Temperature 37 ??C (98.6 ??F) 11/03/2023 11:06 AM EDT Respiratory Rate 18 11/03/2023 11:06 AM EDT Oxygen Saturation 97% 11/03/2023 11:06 AM EDT Inhaled Oxygen Concentration - - Weight 68.5 kg (151 lb) 11/24/2023 11:03 AM EDT Height 152.4 cm (5') 11/24/2023 11:03 AM EDT Body Mass Index 29.49 11/24/2023 11:03 AM EDT Plan of Treatment Upcoming Encounters Date Type Department Care Team (Late st Contact Info) Description 03/29/2024 11:20 AM EDT Office Visit Cardiology at [address] [place] [phone] [facility] [place] [address] Health Maintenance Due Date Last Done Comments Pneumoccocal Vaccine: 65+ (1 of 2 - PCV) 1945 Tdap adult 1958 Tetanus vaccine 1958 Zoster vaccine (1 of 2) 1989 Advance Directive 1994 Bone Density Scan 2004 Covid-19 Vaccine (1 - 2022-24 season) 2023 Influenza (Flu) vaccine (1 o f 1 - Influenza standard series) 02/19/2024 Procedures Procedure Name Priority Date/Time Associated Diagnosis Comments EKG 12-LEAD Routine 11/24/2023 11:09 AM EDT ECG SCAN Routine 11/18/2023 4:50 PM EDT DIFFERENTIAL, AUTOMATED Routine 11/03/19 24 3:46 AM EDT HEMOGRAM Routine 11/03/2023 3:46 AM EDT PHOSPHORUS Routine 11/03/2023 3:46 AM EDT MAGNESIUM Routine 11/03/2023 3:46 AM EDT BASIC METABOLIC PANEL Routine 11/03/2023 3:46 AM EDT CBC (WITH DIFF) Routine 11/03/2023 3:46 AM EDT EKG 12-LEAD Routine 11/02/2023 12:44 PM EDT Tachycardia URINALYSIS MICROSCOPIC EXAM Routine 11/02/2023 11:40 AM EDT URINALYSIS WITH REFLEX CULTURE Routine 11/02/2023 11:40 AM EDT SCAN DOC: TELEMETRY STRIPS 11/02/2023 11:29 AM EDT RESPIRATORY PANEL PCR Routine 11/02/2023 10:15 AM EDT XR CHEST ONE VIEW STAT 11/02/2023 2:5 1 AM EDT DIFFERENTIAL, AUTOMATED Routine 11/02/19 24 12:35 AM EDT HEMOGRAM Routine 11/02/2023 12:35 AM EDT PHOSPHORUS Routine 11/02/2023 12:35 AM EDT MAGNESIUM Routine 11/02/2023 12:35 AM EDT BASIC METABOLIC PANEL Routine 11/02/2023 12:35 AM EDT CBC (WITH DIFF) Routine 11/02/2023 12:35 AM EDT BLOOD CULTURE STAT 11/02/2023 12:35 AM EDT BLOOD CULTURE STAT 11/02/2023 12:15 AM EDT EKG 12-LEAD STAT 11/01/2023 10: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 HEMOGRAM STAT 11/01/2023 10:06 PM EDT SCAN DOC: TELEMETRY STRIPS 11/01/2023 7:19 PM EDT POCT GLUCOSE Routine 11/01/2023 5:59 PM EDT POCT GLUCOSE Routine 11/01/2023 5:35 PM EDT EKG 12-LEAD Routine 11/01/2023 3: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 CARDIAC CATHETERIZATION Routine 11/01/19 3:10 PM EDT SCAN DOC: TELEMETRY STRIPS 11/01/2023 8:03 AM EDT POCT GLUCOSE Routine 11/01/2023 7:06 AM EDT DIFFERENTIAL, AUTOMATED Routine 11/01/19 3:09 AM EDT HEMOGRAM Routine 11/01/2023 3:09 AM EDT PHOSPHORUS Routine 11/01/2023 3:09 AM EDT MAGNESIUM Routine 11/01/2023 3:09 AM EDT BASIC METABOLIC PANEL Routine 11/01/2023 3:09 AM EDT CBC (WITH DIFF) Routine 11/01/2023 3:09 AM EDT HC VENIPUNCTURE STAT 10/31/2023 2:46 PM EDT EKG 12-LEAD STAT 10/31/2023 1: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 HC TROPONIN T STAT 10/31/2023 11:37 AM EDT ECHO COMPLETE Routine 10/31/2023 8: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 HC VENIPUNCTURE STAT 10/31/2023 8:51 AM EDT CARDIAC CATHETERIZATION Routine 10/31/19 8:10 AM EDT SCAN DOC: TELEMETRY STRIPS 10/31/2023 7:40 AM EDT HC TROPONIN T STAT 10/31/2023 4:21 AM EDT DIFFERENTIAL, AUTOMATED STAT 10/31/19 3:05 AM EDT HEMOGRAM STAT 10/31/2023 3:05 AM EDT HC PARTIAL THROMBOPLASTIN TIME Routine 10/31/2023 3:05 AM EDT PROTHROMBIN TIME Routine 10/31/2023 3:05 AM EDT CBC (WITH DIFF) STAT 10/31/2023 3:05 AM EDT DIFFERENTIAL, AUTOMATED Routine 10/31/19 1:37 AM EDT HEMOGRAM Routine 10/31/2023 1:37 AM EDT PHOSPHORUS Routine 10/31/2023 1:37 AM EDT MAGNESIUM Routine 10/31/2023 1:37 AM EDT BASIC METABOLIC PANEL Routine 10/31/2023 1:37 AM EDT CBC (WITH DIFF) Routine 10/31/2023 1:37 AM EDT HC TROPONIN T STAT 10/31/2023 1:37 AM EDT EKG 12-LEAD STAT 10/31/2023 1: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 EKG 12-LEAD Routine 10/30/2023 10: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 XR CHEST ONE VIEW STAT 10/30/2023 10: 10 PM EDT GREEN TUBE HOLD STAT 10/30/2023 10:05 PM EDT DIFFERENTIAL, AUTOMATED STAT 10/30/19 24 10:05 PM EDT HEMOGRAM STAT 10/30/2023 10:05 PM EDT HEMOGLOBIN A1C STAT 10/30/2023 10:05 PM EDT LIPID PANEL (REFLEX DIRECT LDL) STAT 10/30/2023 10:05 PM EDT TSH CASCADE STAT 10/30/2023 10:05 PM EDT PRO-BRAIN NATRIURETIC PEPTIDE STAT 10/30/2023 10:05 PM EDT CBC (WITH DIFF) STAT 10/30/2023 10:05 PM EDT COMPREHENSIVE METABOLIC PANEL STAT 10/30/2023 10:05 PM EDT PHOSPHORUS STAT 10/30/2023 10:05 PM EDT MAGNESIUM STAT 10/30/2023 10:05 PM EDT HC TROPONIN T STAT 10/30/2023 10:05 PM EDT EKG 12-LEAD STAT 10/30/2023 8: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 FILM LIBRARY STORAGE ONLY CT CHEST Routine 10/30/2023 4:59 PM EDT ECG SCAN Routine 10/30/2023 3:58 PM EDT ECG SCAN Routine 10/30/2023 3:23 PM EDT from Last 3 Months Results * EKG 12 Lead (11/24/2023 11:09 AM EDT) Only the most recent of8 resultswithin the time period is included. Ventricular rate 51 BPM MUSE SYSTEM Atrial Rate 51 BPM MUSE SYSTEM P-R Interval 228 ms MUSE SYSTEM QRS Duration 96 ms MUSE SYSTEM Q-T Interval 482 ms MUSE SYSTEM QTC Calculated (Bezet) 444 ms MUSE SYSTEM Calculated P [place] 79 degrees MUSE SYSTEM Calculated R [place] -39 degrees MUSE SYSTEM Calculated T [place] -49 degrees MUSE SYSTEM INTERPRETATION Sinus bradycardia with 1st degree A-V block Left axis deviation Voltage criteria for left ventricular hypertrophy T wave abnormality, consider inferior ischemia T wave abnormality, consider anterolateral ischemia Abnormal ECG When compared with ECG of 02-NOV-2023 12:44, Premature atrial complexes are no longer Present Vent. rate has decreased BY ??32 BPM T wave inversion now evident in Anterolateral leads Confirmed by MD Meyer Daniel ([id number]) on 12/10/2023 2:50:44 PM MUSE SYSTEM 11/24/2023 11:0 9 AM EDT 12/10/2023 2:50 PM EDT Unknown ECG ORDERABLES MUSE SYSTEM * Scan Doc: ECG (11/18/2023 4:50 PM EDT) Only the most recent of3 resultswithin the time period is included. Historical Provider MD GUPTA MGR SCAN EX T ORDR/RSLT * (ABNORMAL) Hemogram (11/03/2023 3:46 AM EDT) Only the most recent of7 resultswithin the time period is included. White Blood Cell 8.3 4.0 - 9.5 x10(3)/mc L [facility] Red Blood Cell 3.77(L) 4.00 - 5.21 x10(6)/mc L [facility] Hemoglobin 13.1 11.7 - 15.5 g/dL [facility] Hematocrit 38.0 35.7 - 45.8 % [facility] Mean Cell Volume 100.8(H) 82.6 - 94.4 fL [facility] Mean Cell Hemoglobin 34.7(H) 27.1 - 32.0 pg [facility] Mean Cell Hemoglobin Concentration 34.5 31.7 - 35.0 g/dL [facility] Platelet 181 145 - 357 x10(3)/mc L [facility] RDW Standard Deviation 54.7(H) 37.0 - 46.0 fL [facility] RDW coefficient of variation 14.6(H) 11.5 - 14.1 % [facility] Mean Platelet Volume 11.2 7.6 - 12.9 fL [facility] NRBC% auto 0.0 % [facility] NRBC Absolute 0.000 0.000 - 0.000 x10(3)/ L [facility] Blood 11/03/2023 3:46 AM EDT 11/03/2023 4:11 AM EDT Narrative Resulting Agency Comment Spec In Lab Qamar Gallardo [place] [address] * (ABNORMAL) Differential, Automated (11/03/2023 3:46 AM EDT) Only the most recent of6 resultswithin the time period is included. Neutrophil % 63.3 % [facility] Neutrophil Absolute 5.28 1.70 - 6.10 x10(3)/mc L [facility] Lymph % 15.2 % [facility] Lymphocytes Abs 1.3 0.9 - 3.2 x10(3)/ L [facility] Monocyte % 16.9 % [facility] Monocyte Abs 1.4(H) 0.3 - 0.9 x10(3)/ L [facility] Eos % 3.7 % [facility] Eosinophils Abs 0.3 0.0 - 0.4 x10(3)/[facility] Basophil % 0.5 % [facility] Baso Absolute 0.0 0.0 - 0.1 x10(3)/[facility] Immature Gran % 0.40 % [facility] Comment: Immature granulocytes(IG's)percentage and absolute count will include metamyelocytes, myelocytes, and promyelocytes. Blood smears from CBCs yielding IG's will be scanned manually for concordance. If this scan disagrees with the automated IG or if promyelocytes are noted, a manual differential will be performed. Immature Gran Absolute 0.03 0.00 - 0.04 x10(3)/mc L [facility] Blood 11/03/2023 3:46 AM EDT 11/03/2023 4:11 AM EDT Narrative Resulting Agency Comment Spec In Lab Qamar Gallardo MD [place] [address] * Phosphorus (11/03/2023 3:46 AM EDT) Only the most recent of5 resultswithin the time period is included. Phosphorus 3.2 2.5 - 4.5 mg/dL [facility] Comment:result rechecked-KS Blood 11/03/2023 3:46 AM EDT 11/03/2023 4:11 AM EDT Narrative Resulting Agency Comment Spec In Lab Rosa Cornejo MD CHEMISTRY ORDERABLE S Performing Organization Address [facility] Co de Phone Number [facility] [place] [address] * Magnesium (11/03/2023 3:46 AM EDT) Only the most recent of5 resultswithin the time period is included. Magnesium 0.90 0.69 - 1.07 mmol/L [facility] Blood 11/03/2023 3:46 AM EDT 11/03/2023 4:11 AM EDT Narrative Resulting Agency Comment Spec In Lab Rosa Cornejo MD CHEMISTRY ORDERABLE S Performing Organization Address [facility] Co de Phone Number [facility] [place] [address] * (ABNORMAL) Basic Metabolic Panel (non-fasting) (11/03/2023 3:46 AM EDT) Only the most recent of4 resultswithin the time period is included. Glucose 105 65 - 199 mg/dL [facility] Comment:Diabetes: >=200 mg/d L plus symptoms Blood Urea Nitrogen 13 8 - 18 mg/dL [facility] Creatinine 0.83 0.70 - 1.20 mg/dL [facility] Sodium 139 135 - 145 mmol/L [facility] Potassium 4.0 3.5 - 5.0 mmol/L [facility] Comment: Please note: ??Patients with WBC >100,000 may have falsely elevated Potassium levels. ??For accurate Potassium quantification in these patients send serum separator tube (gold top) for subsequent determinations. ??Contact the Clinical Chemistry Laboratory if there are any questions. Chloride 108(H) 98 - 107 mmol/L [facility] Carbon Dioxide 19(L) 22 - 31 mmol/L [facility] Anion Gap 12 5 - 15 mmol/L [facility] Calcium 8.2(L) 8.5 - 10.5 mg/dL [facility] Est Glomerular Filtration Rate 69 >=60 mL/min/1. 73 m?? [facility] Comment: This patient's estimated GFR was calculated using the 2020 CKD-EPI equation. The estimated GFR can vary from the measured GFR by up to 30% in the absence of rapidly changing kidney function. Assessment of the estimated GFR is not appropriate when creatinine concentrations are rapidly changing. For clinical situations in which a more precise estimate of GFR is necessary, consider alternative methods of GFR estimation such as a 24-hour urine creatinine clearance. Assignment of CKD stage 1-5 for patients with an eGFR near the transition point between stages may be based on clinical assessment of muscle mass and symptoms in addition to eGFR. Blood 11/03/2023 3:46 AM EDT 11/03/2023 4:11 AM EDT Narrative Resulting Agency Comment Spec In Lab Rosa Cornejo MD CHEMISTRY ORDERABLE S [facility] [place] [address] * (ABNORMAL) Urinalysis Microscopic Exam (11/02/2023 11:40 AM EDT) RBC, Urine <1 0 - 4 /HPF [facility] Comment: Interpret results with caution, microscopic results are from suboptimal specimen volume WBC, Urine 16(H) 0 - 5 /HPF [facility] Comment: Interpret results with caution, microscopic results are from suboptimal specimen volume Bacteria, Urine Many(A) None /HPF [facility] Squamous Epithelial Cells Raw Data, Urine 10(H) <=4 /HPF [facility] Hyaline Casts, Urine 2 0 - 2 /LPF [facility] Comment: Interpret results with caution, microscopic results are from suboptimal specimen volume Clean Catch Urine 11/02/2023 11:40 AM EDT 11/02/2023 12:05 PM EDT Narrative Resulting Agency Comment Spec In Lab Elmer Tamez MD URINE ORDERABLES Performing Organization Address City/State/[facility] Co de Phone Number [facility] [place] [address] * (ABNORMAL) Urinalysis with reflex Culture (11/02/2023 11:40 AM EDT) Glucose, Urine Dipstick Negative Negative mg/dL [facility] Protein, Urine Dipstick 30(A) Negative mg/dL [facility] Bilirubin, Urine Dipstick Negative Negative mg/dL [facility] Comment: Clinical correlation required for positive Urine Bilirubin results as false positive may occur with some drugs and drug related products. If a false positive is suspected a serum total bilirubin should be considered if clinically indicated. Urobilinogen, Urine Dipstick Normal Normal mg/dL [facility] pH, Urn (dipstick) 5.5 5.0 - 8.0 [facility] Blood, Urine Dipstick Negative Negative mg/dL [facility] Ketone, Urine Dipstick Trace(A) Negative mg/dL [facility] Nitrite, Urine Dipstick Positive(A) Negative [facility] Leukocytes, Urine Dipstick Small(A) Negative [facility] Appearance, Urine Dipstick Cloudy(A) Clear [facility] Specific [place] Urine Automated >=1.030(A) 1.005 - 1.030 [facility] Color, Urine Dipstick Dark Yellow Yellow [facility] Reflex to Culture Yes [facility] Clean Catch Urine 11/02/2023 11:40 AM EDT 11/02/2023 12:04 PM EDT Narrative Resulting Agency Comment Spec In Lab Rosa Hugo MD URINE ORDERABLES [facility] [place] [address] * SCAN DOC: TELEMETRY STRIPS (11/02/2023 11:29 AM EDT) Only the most recent of4 resultswithin the time period is included. Narrative 11/02/2023 11:29 AM EDT Ordered by an unspecified provider. Scanning Provider MEDIA MGR SCAN EXT O RDR/RSLT * Respiratory Panel PCR (11/02/2023 10:15 AM EDT) Respiratory Panel Source CREDIT REPORT CHECKER Swab [facility] Respiratory Panel PCR Negative Negative [facility] Comment: Respiratory Panels are performed on the Charge Payment, using multiplexed PCR nucleic acid detection. ??Negative results do not preclude respiratory infection and should not be used as the sole basis for diagnosis, treatment or other management decisions. Adenovirus Not Detected Not Detected [facility] Coronavirus HKU1 Not Detected Not Detected [facility] Coronavirus NL63 Not Detected Not Detected [facility] Coronavirus 229E Not Detected Not Detected [facility] Coronavirus OC43 Not Detected Not Detected [facility] SARS-CoV-2 Not Detected Not Detected [facility] Comment: Testing for SARS-CoV-2 (Severe acute respiratory syndrome coronavirus 2) to aid in the diagnosis of COVID-19 is performed using the [employer] Respiratory Panel 2.1 ([employer]primo) as authorized by the FDA issued Emergency Use Authorization (EUA). This panel also tests for multiple other viral and bacterial pathogens. This assay is intended for In-vitro Diagnostic (IVD) use with nasopharyngeal swabs in viral transport media. The assay is performed based on the instructions for use and additional guidance provided by the FDA. Testing is performed in laboratories within the [facility], each of which is certified under the Clinical Laboratory Improvement Amendments of 1988 (CLIA), 42 U.S.C. section 263a, to perform high-complexity tests. Assay performance has been verified according to clinical laboratory regulatory requirements. The test result for SARS-CoV-2 provided above should be interpreted in combination with the clinical observation, patient history and epidemiological information. For testing of asymptomatic individuals, assay performance characteristics and clinical utility have not been evaluated. ??A result of Not Detected indicates that the viral RNA target is not present but does not preclude SARS-CoV-2 infection. False negative results may occur if a specimen is improperly collected, transported or handled; if amplification inhibitors are present; or if inadequate numbers of viral particles are present in the specimen. When a diagnostic test is negative, the possibility of a false negative result should be considered in the context of a patient's recent exposures and the presence of clinical signs and symptoms consistent with COVID-19. A result of Detected suggests a current or recent infection. Positive and negative predictive values for this test are dependent on disease prevalence. A result of Invalid indicates the inability to conclusively determine the presence or absence of SARS-CoV-2 RNA in the sample which can be due to a variety of factors. ??Collection of a new sample for repeat testing is recommended in the case of an invalid result. CDC COVID-19 criteria for testing on human specimens and clinical management guidance information are available at the CDC Coronavirus Disease 2019 (COVID-19) webpage under Information for Healthcare Professionals (https://www.cdc.gov/coronavirus/2019-ncov/hcp/index.html). Additional information about this and other EUA tests can be found in provider and patient fact sheets at the following FDA website: https://www.fda.gov/medical-devices/nqakmpgiwzu-ggbivze-2814-uyicl-50-ufwsadaba- use-a jhjnrjyzzywct-mgcmfgl-arvbdmi/ozrmn-anwxtvpwvog-eicw Human Metapneumovirus Not Detected Not Detected [facility] Human Rhinovirus/Enterov irus Not Detected Not Detected [facility] Influenza A Not Detected Not Detected [facility] Influenza B Not Detected Not Detected [facility] Parainfluenza 1 Not Detected Not Detected [facility] Parainfluenza 2 Not Detected Not Detected [facility] Parainfluenza 3 Not Detected Not Detected [facility] Parainfluenza 4 Not Detected Not Detected [facility] Respiratory Syncytial Virus Not Detected Not Detected [facility] Chlamydophila pneumoniae Not Detected Not Detected [facility] Mycoplasma pneumoniae Not Detected Not Detected [facility] Nasopharyngeal Swab 11/02/19 10:15 AM EDT 11/02/2023 10:49 AM EDT Narrative Resulting Agency Comment Spec In Lab Rosa Hugo MD MICROBIOLOGY - GEN ERAL ORDERABLES [facility] [place] [address] * XR Chest One View (11/02/2023 2:51 AM EDT) Only the most recent of2 resultswithin the time period is included. [employer] WORKSTATION ID [id number] RAD Anatomical Region Laterality Modality Chest N/A Digital Radiogra phy Impressions 11/02/2023 4:56 AM EDT 1. ??No focal consolidation to suggest pneumonia. 2. ??Stable cardiomediastinal silhouette and the setting of known ascending aortic aneurysm. Preliminary report signed by: Pravin Puentes MD at 11/02/2023 4:05 AM ?? I have personally reviewed the image(s) and the resident's interpretation and agree with the findings, Omaira Tran MD at 11/02/2023 4:56 AM Thank you for letting us participate in the care of this patient. ??If you are a health care provider and have any questions regarding this report, please contact the number below. ??For patients who have questions please contact the health housekeeper child care that requested your imaging first. ? Electronically signed by: Omaira Tran MD, [facility] ([phone]), at 11/02/2023 4:56 AM Narrative 11/02/2023 4:56 AM EDT EXAMINATION: XR CHEST ONE VIEW CLINICAL HISTORY: fever, concern for infection TECHNIQUE: AP portable upright view of the chest COMPARISON: Radiographs of the chest 10/30/2023, CTA chest 10/30/2023 FINDINGS: Persistent elevation of the right hemidiaphragm and low lung volumes bilaterally. Stable contours of the cardiomediastinal silhouette in keeping with known ascending aortic aneurysm. Relative decreased pulmonary vascular markings compared to prior chest radiograph. No focal consolidation. No acute osseous change. Procedure Note Omaira Tran MD - 11/02/2023 EXAMINATION: XR CHEST ONE VIEW CLINICAL HISTORY: fever, concern for infection TECHNIQUE: AP portable upright view of the chest COMPARISON: Radiographs of the chest 10/30/2023, CTA chest 10/30/2023 FINDINGS: Persistent elevation of the right hemidiaphragm and low lung volumes bilaterally. Stable contours of the cardiomediastinal silhouette inkeeping with known ascending aortic aneurysm. Relative decreased pulmonary vascularmarkings compared to prior chest radiograph. No focal consolidation. No acuteosseous change. IMPRESSION 1. No focal consolidation to suggest pneumonia. 2. Stable cardiomediastinal silhouette and the setting of knownascending aortic aneurysm. Preliminary report signed by: Pravin Puentes MD at 11/02/2023 4:05 AM I have personally reviewed the image(s) and the resident's interpretationand agree with the findings, Omaira Tran MD at 11/02/2023 4:56 AM Thank you for letting us participate in the care of this patient. If youare a health care provider and have any questions regarding this report,please contact the number below. For patients who have questions please contactthe health housekeeper child care that requested your imaging first. Electronically signed by: Omaira Tran MD, [facility]([phone]), at 11/02/2023 4:56 AM Rosa Hugo MD IMG DX ORDERABLES * Blood culture (11/02/2023 12:35 AM EDT) Only the most recent of2 resultswithin the time period is included. Blood Culture No growth at 5 days. [facility] Blood 11/02/2023 12:3 5 AM EDT 11/02/2023 1:55 AM EDT Comment:#2 site ukn Narrative Resulting Agency Comment Spec In Lab Rosa Hugo MD MICROBIOLOGY - BLO OD ORDERABLES Performing Organization Address City/[facility]/ZIP Co de Phone Number [facility] [place] [phone] * POCT Glucose (11/01/2023 5:59 PM EDT) Only the most recent of3 resultswithin the time period is included. Glucose, POC 104 65 - 199 mg/dL [facility] Comment: Supplemental ranges: <140 mg/dL before meals <180 mg/dL all other times of the day Blood 11/01/2023 5:59 PM EDT 11/01/2023 5:59 PM EDT Rosa Hugo MD POINT OF CARE TEST ORDERABLES Performing Organization Address City/[facility] Co de Phone Number [facility] [place] [address] * CARDIAC CATHETERIZATION (11/01/2023 3:10 PM EDT) Only the most recent of2 resultswithin the time period is included. Anatomical Region Laterality Modality Other Narrative 11/02/2023 4:57 PM EDT ?[facility] ? Cardiac Catheterization/Intervention Report ? Patient Name: TomPatricka Dorene. ? Procedure Date: 11/01/2023 ? A #: [id number] ? Primary Physician: Rosa Dewey I ? Case #: [id number] ? File Name: [id number] ? Catheterization Order Number: [id number] ? [facility] ? Final Report [place], [place] ? Patient Name: ? Adin M. Goguen ?ID#: ?[id number] ? : ?1940 ? Procedure Date: ? November 01, 2023 ? Case #: ? [id number] ? Room: ? 2 ? Case Physician: ? Rosa Dewey M.D. ? Start: ?13:53 ? Admission: ??10/30/2023 ? Referring Physician: ??Omaira Giron M.D. ? Discharge: ??11/03/2023 ? Procedures: ?* Coronary Angiography ?* Coronary Ultrasound ?* Coronary Stent Insertion ? History ?Adin Santos is an 83 year old woman. The patient's smoking status is ?Never. The patient has a prior history of coronary artery disease. She is ?status post a recent ST elevation myocardial infarction. The patient had ?a recent coronary intervention procedure. Prior to the initiation of this ?procedure, the patient was designated as ASA Class III. The CSHA clinical ?frailty scale is 4: Vulnerable. ? Diagnostic Tests: ?Prior Coronary Angiography: ? LV ejection fraction within 6 months is 65%. ?Electrocardiography: ? EKG was assessed by ECG. EKG was Abnormal. EKG showed other ? abnormality. ?Medications Prior to Procedure: ? Aspirin, Angiotensin II Receptor Rodrick and Statin. ? Indications for Diagnostic Cath: ?The priority of the diagnostic procedure was Urgent. The indication for ?the pathology laboratory technologist visit is ACS greater than 24 hrs. Chest pain symptom ?assessment was: Typical Angina. ? Technique: ?A 6 SLFr sheath was inserted in the left femoral artery utilizing the ?Seldinger technique. The left coronary artery was injected utilizing a ?6Fr EBU 4.5 catheter. Coronary stent insertion was performed and the ?equipment utilized will be described in the intervention summary section. ?8,000 units of heparin were administered. A total of 200cc of Omnipaque ?were opened, 152cc of Omnipaque were administered and 48cc of Omnipaque ?were wasted. Radiation: Fluoro time was 18.9 minutes, dose area product ?was 51.70 Gy/cm2 and air kerma was 930 mGY. See the case log for ?additional details. ?The patient received the following medications prior to and during the ?procedure: ? Unfractionated Heparin, Clopidogrel and Ticagrelor. ? Hemodynamics: ?Left Heart Pressures ? Resting: ? Syst Diast ? EDP ?a ?v ? m ?Ao 140 ?? 59 ?89 ? Coronary Angiography: ?Dominance: Right ?Left Main ? There was mild diffuse (<=25% stenosis) disease of the entire vessel ? segment of the left main artery. ??The distal segment of the left ? main had a calcified single discrete 40% stenosis. ??Distal flow was ? normal. ?Left Anterior Descending ? There was mild diffuse (<=25% stenosis) disease of the entire vessel ? segment of the left anterior descending artery (LAD). ?Left Circumflex ? There was a 60% stenosis of the proximal segment of the left ? circumflex artery (LCX). ??The mid segment of the LCX had 80% ? stenosis. ? There was a 40% stenosis of the ostial segment of the first obtuse ? marginal branch (OM1) of the LCX. ?Right Coronary Artery ? This vessel was not injected. ? Intravascular Imaging/Physiology: ?Intravascular Ultrasound was performed in the mid LCX using a 6 Fr EBU ?4.5 guiding catheter and a 3.1 Fr Refinity 42 MHz catheter using auto 1 ?mm/sec pullback. ??Imaging was successful. ??Image quality was good. ?Indication: IVUS performed for pre intervention planning and post ?intervention assessment. ?IVUS performed prior to any vessel manipulation. ??IVUS performed after ?vessel manipulation. ?Findings Pre-Intervention: diffuse plaque. ?Findings Post-Intervention: The stent was well expanded and apposed. ?Conclusions: stent/intervention appears optimized. ?Intravascular Ultrasound was performed in the proximal LCX using a 6 Fr ?EBU 4.5 guiding catheter and a 3.1 Fr Refinity 42 MHz catheter using auto ?1 mm/sec pullback. ??Imaging was successful. ??Image quality was fair. ?Indication: IVUS performed for pre intervention planning. ?IVUS performed prior to any vessel manipulation. ??IVUS performed after ?pre-dilation. ?Findings Pre-Intervention: scattered plaque. These measurements were ?performed after pre-dilation of the lesion. ?Findings Post-Intervention: The stent was well expanded and apposed. ?Conclusions: stent/intervention appears optimized. ? Indication for Intervention: ?Coronary intervention was indicated for reasons stated below. The ?priority for the procedure was Urgent. The NCDR indication for the ?procedure was Other PCI Indication. Syntax Score was Intermediate. Staged ?PCI was performed for multivessel disease. ? Intervention Summary: ?Left Circumflex Artery ? Proximal 60% ? Stent insertion was performed on the 60% stenosis in the ? proximal segment of the LCX. This was a de bertin lesion. ? According to the ACC/AHA classification system, this lesion ? was a type C moderate risk lesion. Primary prevention of ? restenosis was the indication for stent insertion. This was ? the culprit lesion. A guidewire was placed across this lesion. ? Vessel flow pre intervention was SAMIRA 3. Lesion length was ? 14mm. ? Stent insertion was accomplished through a 6 Fr. EBU 4.5 ? guide. ??The lesion was predilated with a 3.00mm balloon with a ? maximum inflation pressure of 14 atmospheres. ??A premounted ? 3.50 x 15 mm Milan Milton (RADHA) was deployed with a maximum ? inflation pressure of 14 atmospheres. ??Following stent ? deployment, the lesion was dilated using a 3.50mm balloon with ? a maximum inflation pressure of 13 atmospheres. ? The final outcome was defined as successful. There was no ? residual stenosis following this intervention. The final SAMIRA ? flow was 3. ? Mid 80% ? Stent insertion was performed on the 80% stenosis in the mid ? segment of the LCX. This was a de bertin lesion. This lesion was ? designated a type C moderate risk lesion based on ACC/AHA ? classification system. Primary prevention of restenosis was ? the indication for stent insertion. This was the culprit ? lesion. A guidewire was placed across this lesion. Vessel flow ? pre intervention was SAMIRA 3. Lesion length was 15mm. This ? lesion was contiguous with LCX-proximal. ? Stent insertion was accomplished through a 6 Fr. EBU 4.5 ? guide. ??The lesion was predilated with a 3.00mm EUPHORA 15 MM ? balloon with a maximum inflation pressure of 14 atmospheres. ? A premounted 3.50 x 15 mm Milan Milton (RADHA) was deployed ? with a maximum inflation pressure of 12 atmospheres. ? The final outcome was defined as successful. There was no ? residual stenosis following this intervention. The final SAMIRA ? flow was 3. ? Vascular Access: ?Vascular Access Angiogram: ? A selective angiogram at the left femoral artery revealed mild ? diffuse disease. ?Vascular Ultrasound: ? Ultrasound of the left femoral artery was used to guide access and ? showed vessel patent with no disease. Needle entry was observed. ?Vascular Access Management: ? A 6 Fr Perclose was deployed at the left femoral artery access site. ? This device was successful. Manual Compression of the left femoral ? artery access site was performed. ? Dual Antiplatelet (DAPT) Recommendations: ?Drug eluting stent (RADHA) inserted. ?P2Y12 Loading dose administered prior to arrival in the pathology laboratory technologist. ?Recommended anti-platelet/anti-thrombotic regimen: ?Continue aspirin 81 mg daily for indefinitely. ?Continue clopidogrel 75 mg daily for 12 months then stop. ?These recommendations are made at the time of the intervention. Patient ?and provider preferences or a changing clinical situation may require ?modification of this regimen. Consult [facility] Interventional Cardiology for ?questions. ?The 1 year bleeding risk as calculated by the PRECISE DAPT score is High ?risk. ?This patient may be at high bleeding risk. In patients treated with DAPT ?after coronary stent implantation who develop a high risk of bleeding, or ?are at high risk of severe bleeding complication, or develop significant ?overt bleeding, discontinuation of P2Y12 inhibitor therapy after 3 months ?for stable ischemic heart disease (SIHD) or after 6 months for acute ?coronary syndrome (ACS) may be reasonable. ? Conclusions: ?* Obstructive disease of the LCX ?* Nonobstructive disease of the LM and LAD ?* Successful stent insertion of the mid LCX lesion ?* Successful stent insertion of the proximal LCX lesion ?* See Dual Antiplatelet (DAPT) Recommendations above ? Complications/Events: ?The patient had no complications during these procedures. ? Post Procedure Fluid Recommendations: ?IV fluid at 212 mL/hr for 4 hours for a total of 848 mL. These ?recommendations are made at the time of the procedure. Patient and ?provider preferences or a changing clinical situation may require ?modification of this regimen. ?The attending physician was present for the entire procedure. ?Dr. Rosa Dewey M.D. was present during the moderate sedation ?intraservice time as documented by the sedation nurse. ??Case time = 01:06. ?Dr. Rosa Dewey M.D. performed the coronary angiography, stent ?insertion-coronary and IVUS # coronary. ? Rosa Dewey M.D. ? Electronically Signed by: Rosa Dewey M.D. ? Report Finalized: 11/02/2023 ??16:51 ? Report Last Ammended: 12/12/2023 ??10:28 ? Procedure Note Rosa Dewey MD - 12/12/2023 [facility] Cardiac Catheterization/Intervention Report Patient Name: Adin Santos Procedure Date: 11/01/2023 A #: [id number] Primary Physician: Rosa Dewey I Case #: [id number] File Name: [id number] Catheterization Order Number: [id number] [facility] FinalReport [place], [place] Patient Name: Adin CatherineYasir Santos ID#:[id number] :1940 Procedure Date: November 01, 2023 Case #: [id number] Room: 2 Case Physician: Rosa Dewey M.D. Start: 13:53 Admission:10/30/2023 Referring Physician: Omaira Giron M.D. Discharge:11/03/2023 Procedures: * Coronary Angiography * Coronary Ultrasound * Coronary Stent Insertion History Adin Santos is an 83 year old woman. The patient's smokingstatus is Never. The patient has a prior history of coronary artery disease.She is status post a recent ST elevation myocardial infarction. The patienthad a recent coronary intervention procedure. Prior to the initiation ofthis procedure, the patient was designated as ASA Class III. The CSclinical frailty scale is 4: Vulnerable. Diagnostic Tests: Prior Coronary Angiography: LV ejection fraction within 6 months is 65%. Electrocardiography: EKG was assessed by ECG. EKG was Abnormal. EKG showed other abnormality. Medications Prior to Procedure: Aspirin, Angiotensin II Receptor Rodrick and Statin. Indications for Diagnostic Cath: The priority of the diagnostic procedure was Urgent. The indicationfor the pathology laboratory technologist visit is ACS greater than 24 hrs. Chest pain symptom assessment was: Typical Angina. Technique: A 6 SLFr sheath was inserted in the left femoral artery utilizingthe Seldinger technique. The left coronary artery was injected utilizinga 6Fr EBU 4.5 catheter. Coronary stent insertion was performed and the equipment utilized will be described in the intervention summarysection. 8,000 units of heparin were administered. A total of 200cc ofOmnipaque were opened, 152cc of Omnipaque were administered and 48cc ofOmnipaque were wasted. Radiation: Fluoro time was 18.9 minutes, dose areaproduct was 51.70 Gy/cm2 and air kerma was 930 mGY. See the case log for additional details. The patient received the following medications prior to and duringthe procedure: Unfractionated Heparin, Clopidogrel and Ticagrelor. Hemodynamics: Left Heart Pressures Resting: Syst Diast EDP a v m Ao 140 59 89 Coronary Angiography: Dominance: Right Left Main There was mild diffuse (<=25% stenosis) disease of the entirevessel segment of the left main artery. The distal segment of theleft main had a calcified single discrete 40% stenosis. Distal flowwas normal. Left Anterior Descending There was mild diffuse (<=25% stenosis) disease of the entirevessel segment of the left anterior descending artery (LAD). Left Circumflex There was a 60% stenosis of the proximal segment of the left circumflex artery (LCX). The mid segment of the LCX had 80% stenosis. There was a 40% stenosis of the ostial segment of the firstobtuse marginal branch (OM1) of the LCX. Right Coronary Artery This vessel was not injected. Intravascular Imaging/Physiology: Intravascular Ultrasound was performed in the mid LCX using a 6 FrEBU 4.5 guiding catheter and a 3.1 Fr Refinity 42 MHz catheter usingauto 1 mm/sec pullback. Imaging was successful. Image quality was good. Indication: IVUS performed for pre intervention planning and post intervention assessment. IVUS performed prior to any vessel manipulation. IVUS performedafter vessel manipulation. Findings Pre-Intervention: diffuse plaque. Findings Post-Intervention: The stent was well expanded and apposed. Conclusions: stent/intervention appears optimized. Intravascular Ultrasound was performed in the proximal LCX using a 6Fr EBU 4.5 guiding catheter and a 3.1 Fr Refinity 42 MHz catheter usingauto 1 mm/sec pullback. Imaging was successful. Image quality was fair. Indication: IVUS performed for pre intervention planning. IVUS performed prior to any vessel manipulation. IVUS performedafter pre-dilation. Findings Pre-Intervention: scattered plaque. These measurements were performed after pre-dilation of the lesion. Findings Post-Intervention: The stent was well expanded and apposed. Conclusions: stent/intervention appears optimized. Indication for Intervention: Coronary intervention was indicated for reasons stated below. The priority for the procedure was Urgent. The NCDR indication for the procedure was Other PCI Indication. Syntax Score was Intermediate.Staged PCI was performed for multivessel disease. Intervention Summary: Left Circumflex Artery Proximal 60% Stent insertion was performed on the 60% stenosis in the proximal segment of the LCX. This was a de bertin lesion. According to the ACC/AHA classification system, thislesion was a type C moderate risk lesion. Primary prevention of restenosis was the indication for stent insertion. Thiswas the culprit lesion. A guidewire was placed across thislesion. Vessel flow pre intervention was SAMIRA 3. Lesion lengthwas 14mm. Stent insertion was accomplished through a 6 Fr. EBU 4.5 guide. The lesion was predilated with a 3.00mm balloonwith a maximum inflation pressure of 14 atmospheres. Apremounted 3.50 x 15 mm Milan Milton (RADHA) was deployed with amaximum inflation pressure of 14 atmospheres. Following stent deployment, the lesion was dilated using a 3.50mm balloonwith a maximum inflation pressure of 13 atmospheres. The final outcome was defined as successful. There was no residual stenosis following this intervention. The finalTIMI flow was 3. Mid 80% Stent insertion was performed on the 80% stenosis in themid segment of the LCX. This was a de bertin lesion. Thislesion was designated a type C moderate risk lesion based on ACC/AHA classification system. Primary prevention of restenosiswas the indication for stent insertion. This was the culprit lesion. A guidewire was placed across this lesion. Vesselflow pre intervention was SAMIRA 3. Lesion length was 15mm. This lesion was contiguous with LCX-proximal. Stent insertion was accomplished through a 6 Fr. EBU 4.5 guide. The lesion was predilated with a 3.00mm [id number] MM balloon with a maximum inflation pressure of 14atmospheres. A premounted 3.50 x 15 mm Andrea Milton (RADHA) wasdeployed with a maximum inflation pressure of 12 atmospheres. The final outcome was defined as successful. There was no residual stenosis following this intervention. The finalTIMI flow was 3. Vascular Access: Vascular Access Angiogram: A selective angiogram at the left femoral artery revealed mild diffuse disease. Vascular Ultrasound: Ultrasound of the left femoral artery was used to guide accessand showed vessel patent with no disease. Needle entry wasobserved. Vascular Access Management: A 6 Fr Perclose was deployed at the left femoral artery accesssite. This device was successful. Manual Compression of the leftfemoral artery access site was performed. Dual Antiplatelet (DAPT) Recommendations: Drug eluting stent (RADHA) inserted. P2Y12 Loading dose administered prior to arrival in the pathology laboratory technologist. Recommended anti-platelet/anti-thrombotic regimen: Continue aspirin 81 mg daily for indefinitely. Continue clopidogrel 75 mg daily for 12 months then stop. These recommendations are made at the time of the intervention.Patient and provider preferences or a changing clinical situation mayrequire modification of this regimen. Consult [facility] Interventional Cardiologyfor questions. The 1 year bleeding risk as calculated by the PRECISE DAPT score isHigh risk. This patient may be at high bleeding risk. In patients treated withDAPT after coronary stent implantation who develop a high risk ofbleeding, or are at high risk of severe bleeding complication, or developsignificant overt bleeding, discontinuation of P2Y12 inhibitor therapy after 3months for stable ischemic heart disease (SIHD) or after 6 months for acute coronary syndrome (ACS) may be reasonable. Conclusions: * Obstructive disease of the LCX * Nonobstructive disease of the LM and LAD * Successful stent insertion of the mid LCX lesion * Successful stent insertion of the proximal LCX lesion * See Dual Antiplatelet (DAPT) Recommendations above Complications/Events: The patient had no complications during these procedures. Post Procedure Fluid Recommendations: IV fluid at 212 mL/hr for 4 hours for a total of 848 mL. These recommendations are made at the time of the procedure. Patient and provider preferences or a changing clinical situation may require modification of this regimen. The attending physician was present for the entire procedure. Dr. Rosa Dewey M.D. was present during the moderate sedation intraservice time as documented by the sedation nurse. Case time =01:06. Dr. Rosa Dewey M.D. performed the coronary angiography, stent insertion-coronary and IVUS # coronary. Rosa Dewey M.D. Electronically Signed by: Rosa Dewey M.D. Report Finalized: 11/02/2023 16:51 Report Last Ammended: 12/12/2023 10:28 Rosa Cornejo MD CARDIAC CATH ORDERA BLES * (ABNORMAL) Troponin (10/31/2023 2:46 PM EDT) Only the most recent of6 resultswithin the time period is included. Troponin-T, High Sensitivity 544(H) <=14 ng/L [facility] Comment: This patient's troponin T concentration was determined using the Sully 5th Generation troponin T assay. The 99th percentile for Troponin T for this test is 14 ng/L for females, and 22 ng/L for males. According to the fourth universal definition of myocardial infarction, the term acute myocardial infarction should be used when there is acute myocardial injury with clinical evidence of acute myocardial ischemia and with detection of a rise and/or fall of cardiac troponin values with at least one value above the 99th percentile and at least one of the following: - Symptoms of myocardial ischemia; - New ischemic ECG changes; - Development of pathological Q waves; - Imaging evidence of new loss of viable myocardium or new regional wall motion abnormality in a pattern consistent with an ischemic etiology; - Identification of a coronary thrombus by angiography or autopsy (not for type 2 or 3 MIs) Serial measurement of troponin and the change in troponin concentration over time (delta) is crucial for the diagnosis of acute myocardial infarction. Guidance on the interpretation of the new 5th Generation Troponin T values and the delta troponin value can be found in the [facility] Test Catalog Troponin - [facility] Test Catalog Reference: Fourth [place] Definition of Myocardial Infarction. Journal of the [place] [employer] 2018;72:2069-0280 Blood 10/31/2023 2:46 PM EDT 10/31/2023 2:55 PM EDT Narrative Resulting Agency Comment Spec In Lab Jean Laboy MD CHEMISTRY ORDERABLES [facility] [place] [address] * ECHO COMPLETE (10/31/2023 8:52 AM EDT) Anatomical Region Laterality Modality Cardiac Other 10/31/2023 7:57 AM EDT Narrative 10/31/2023 9:45 AM EDT [address] [id number] ? Echocardiogram Report Name: ADIN SANTOS ? Study Date: 10/31/2023 07:57 AMBP: 106/76 mmHg ? Patient Location: [address] : 1940 ? Height: 163 cm ? Account: [id number] Age: 83 yrs ? Weight: 76 kg Gender: Female ?BSA: 1.8 m2 Ordering Physician: ROSA DEWEY Referring Physician: OMAIRA GIRON Performed By: HAFSA Carmichael Reason For Study: STEMI Interpreting Fellow: Raymond Warren. Exam Location: [facility]. Interpretation Summary -The left ventricle is of normal size. There is moderately increased thickness of the basal septum with no obstruction to LV outflow. The left ventricular systolic function is normal with an ejection fraction of 64% by Pyle's biplane. There is hypokinesis of the basal inferior wall segment. -The right ventricle is of normal size and systolic function. Pulmonary artery hypertension could not be assessed due to inadequate tricuspid regurgitation jet. -Mild left atrial dilation. -There is mild aortic regurgitation. 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 -There is no prior echocardiogram for comparison. Procedure Complete-[id number]. Satisfactory quality. There is sinus bradycardia. Left Ventricle Left ventricle is of normal size. Moderately increased thickness of the basal septum with no obstruction to LV outflow. There is no ventricular septal defect. Left ventricular systolic function is normal. The left ventricular ejection fraction is 64% by Pyle's biplane. There are segmental wall motion abnormalities. Right Ventricle The right ventricle is of normal size. Right ventricular systolic function is normal. Left Atrium The left atrium is mildly dilated. No abnormality of the interatrial septum is identified. Right Atrium The right atrium is mildly dilated. Aortic Valve The aortic valve is tricuspid. The aortic valve is mildly thickened. The aortic valve is mildly calcified. There is no aortic stenosis. There is mild aortic regurgitation. Mitral Valve There is posterior mitral annular calcification. There is trace mitral regurgitation. Tricuspid Valve The tricuspid valve is structurally and functionally normal. There is trace tricuspid regurgitation. Pulmonic Valve The pulmonic valve appears to be structurally and functionally normal. There is no pulmonic valve regurgitation. Great Arteries The aortic root is of normal size. No abnormalities are identified. The ascending aorta is dilated. The maximum diameter of the proximal ascending aorta is 4.6 cm. The ascending aorta is mildly dilated. No abnormalities of the pulmonary artery are identified. Venous Inferior vena cava is normal in size. Inferior vena cava collapse greater than 50% with respiration. Pericardium/Pleural The pericardium appears normal. A pericardial fat pad is present. Hemodynamics Pulmonary artery hypertension could not be assessed due to inadequate tricuspid regurgitation jet. The estimated right atrial pressure is 3mmHg. Left ventricular diastolic function is indeterminate. Left ventricular filling pressure is normal. Ejection Fraction ?2D Measurements ? Volumes EF(MOD-bp): 64.0 % ?IVSd: 1.9 cm ? LAV(MOD- bp) Indexed: ?LVIDd: 4.7 cm ?LVIDs: 3.6 cm ?42.3 ml/m2 ?LVPWd: 0.92 cm ? RA A4Cs_phl: 20.3 cm2 ?RWT: 0.39 {ratio} ?EDV(MOD-bp) Indexed: ?LV mass(C)d: 267.1 grams ? 54.1 ml/m2 ?LV mass(C)dI: 146.9 grams/m2 ?? ESV(MOD- bp) Indexed: ?Ao root diam: 3.9 cm ? 19.5 ml/m2 ?Ao root diam index: 2.1 ?SV(LVOT): 62.9 ml ?asc Aorta Diam: 4.6 cm ?LVOT diam: 1.8 cm ?SI(LVOT): 34.6 ml/m2 Doppler LV V1 VTI: 23.6 cm MV E max chance: 75.9 cm/sec MV A max chance: 94.6 cm/sec MV E/A: 0.80 MV dec time: 0.24 sec Lat Peak E' Chance: 7.9 cm/sec E/ e' (lat): 9.6 Med Peak E' Chance: 4.7 cm/sec E/e' (med): 16.1 E/e' Average: 12.9 I ?WMSI = 1.06 ? % Normal = 94 ?Segments ??Size X - Cannot ?2 - ?4 - ?1-2 ? small Interpret ?1 - Normal ?? Hypokinetic 3 - Akinetic Dyskinetic ?? 3-5 ? moderate 5 - ? 6-14 ?large Aneurysmal ?15-16 ?? diffuse Procedure Note Edgard Wang MD - 10/31/2023 [address] [place] [address] Echocardiogram Report Name: TOM ADIN M Study Date: 407:57 AMBP: 106/76 mmHg Patient Location: [address] : 1940 Height: 163 cm Account: [id number] Age: 83 yrs Weight: 76 kg Gender: Female BSA: 1.8 m2 Ordering Physician: ROSA DEWEY Referring Physician: OMAIRA GIRON Performed By: HAFSA Carmichael Reason For Study: STEMI Interpreting Fellow: Raymond Warren. Exam Location: [facility]. Interpretation Summary -The left ventricle is of normal size. There is moderately increasedthickness of the basal septum with no obstruction to LV outflow. The left ventricularsystolic function is normal with an ejection fraction of 64% by Pyle's biplane.There is hypokinesis of the basal inferior wall segment. -The right ventricle is of normal size and systolic function. Pulmonaryartery hypertension could not be assessed due to inadequate tricuspidregurgitation jet. -Mild left atrial dilation. -There is mild aortic regurgitation. 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 -There is no prior echocardiogram for comparison. Procedure Complete-[id number]. Satisfactory quality. There is sinus bradycardia. Left Ventricle Left ventricle is of normal size. Moderately increased thickness of thebasal septum with no obstruction to LV outflow. There is no ventricular septaldefect. Left ventricular systolic function is normal. The left ventricularejection fraction is 64% by Pyle's biplane. There are segmental wall motion abnormalities. Right Ventricle The right ventricle is of normal size. Right ventricular systolic functionis normal. Left Atrium The left atrium is mildly dilated. No abnormality of the interatrialseptum is identified. Right Atrium The right atrium is mildly dilated. Aortic Valve The aortic valve is tricuspid. The aortic valve is mildly thickened. Theaortic valve is mildly calcified. There is no aortic stenosis. There is mildaortic regurgitation. Mitral Valve There is posterior mitral annular calcification. There is trace mitral regurgitation. Tricuspid Valve The tricuspid valve is structurally and functionally normal. There istrace tricuspid regurgitation. Pulmonic Valve The pulmonic valve appears to be structurally and functionally normal.There is no pulmonic valve regurgitation. Great Arteries The aortic root is of normal size. No abnormalities are identified. Theascending aorta is dilated. The maximum diameter of the proximal ascending aorta is4.6 cm. The ascending aorta is mildly dilated. No abnormalities of the pulmonaryartery are identified. Venous Inferior vena cava is normal in size. Inferior vena cava collapse greaterthan 50% with respiration. Pericardium/Pleural The pericardium appears normal. A pericardial fat pad is present. Hemodynamics Pulmonary artery hypertension could not be assessed due to inadequatetricuspid regurgitation jet. The estimated right atrial pressure is 3mmHg. Leftventricular diastolic function is indeterminate. Left ventricular filling pressure isnormal. Ejection Fraction 2D Measurements Volumes EF(MOD-bp): 64.0 % IVSd: 1.9 cm LAV(MOD-bp)Indexed: LVIDd: 4.7 cm LVIDs: 3.6 cm 42.3 ml/m2 LVPWd: 0.92 cm RA A4Cs_phl: 20.3cm2 RWT: 0.39 {ratio} EDV(MOD-bp)Indexed: LV mass(C)d: 267.1 grams 54.1 ml/m2 LV mass(C)dI: 146.9 grams/m2 ESV(MOD-bp)Indexed: Ao root diam: 3.9 cm 19.5 ml/m2 Ao root diam index: 2.1 SV(LVOT): 62.9ml asc Aorta Diam: 4.6 cm LVOT diam: 1.8 cm SI(LVOT): 34.6ml/m2 Doppler LV V1 VTI: 23.6 cm MV E max chance: 75.9 cm/sec MV A max chance: 94.6 cm/sec MV E/A: 0.80 MV dec time: 0.24 sec Lat Peak E' Chance: 7.9 cm/sec E/ e' (lat): 9.6 Med Peak E' Chance: 4.7 cm/sec E/e' (med): 16.1 E/e' Average: 12.9 I WMSI = 1.06 % Normal = 94 SegmentsSize X - Cannot 2 - 4 - 1-2small Interpret 1 - Normal Hypokinetic 3 - Akinetic Dyskinetic 3-5moderate 5 - 6-14large Aneurysmal 15-16diffuse Rosa Cornejo MD ECHO ORDERABLES * (ABNORMAL) APTT (10/31/2023 3:05 AM EDT) Partial Thromboplastin Time 67(H) 25 - 37 sec [facility] Comment: The PTT is NOT appropriate for heparin monitoring. Use the Anti-Xa level for heparin monitoring (HEP UFH) or LMWH monitoring (HEP LMW). A PTT less than 37 seconds generally indicates adequate hemostasis. Blood 10/31/2023 3:05 AM EDT 10/31/2023 3:13 AM EDT Narrative Resulting Agency Comment Spec In Lab Rosa Cornejo MD HEMATOLOGY ORDERABL ES Performing Organization Address [facility] Co de Phone Number [facility] [place] [address] * (ABNORMAL) Prothrombin Time (10/31/2023 3:05 AM EDT) Prothrombin Time 12.6(H) 9.4 - 12.5 sec [facility] International Normalization Ratio 1.1 [facility] Comment: An INR <2.0 indicates adequate procoagulant activity for hemostasis in most patients without underlying bleeding disorders, though the INR may not adequately reflect hemostatic capacity in patients with liver disease and synthetic impairment. The recommended target INR range for therapeutic anticoagulation is 2.0 ? 3.0 for most applications, though lower and higher ranges may be appropriate depending on clinical circumstances. Blood 10/31/2023 3:05 AM EDT 10/31/2023 3:13 AM EDT Narrative Resulting Agency Comment Spec In Lab Rosa Cornejo MD HEMATOLOGY ORDERABL ES Performing Organization Address [facility]/ZIP Co de Phone Number [facility] [place] [address] * TSH Ashley (10/30/2023 10:05 PM EDT) Thyroid Stimulating Hormone 3.35 0.27 - 4.20 mcIU/mL [facility] Comment: Reference Interval (mcIU/mL): Females: ??First Trimester: 0.23-3.88 ??Second Trimester: 0.22-3.90 ??Third Trimester: 0.44-4.66 Blood 10/30/2023 10:0 5 PM EDT 10/30/2023 10:12 PM EDT Narrative Resulting Agency Comment Spec In Lab Rosa Cornejo MD CHEMISTRY ORDERABLE S [facility] [place] [address] * Green Tube HOLD (10/30/2023 10:05 PM EDT) Pathologist [facility] Green Hold Sample in lab. [facility] Blood Venous Draw / Unknown 10/30/2023 10:05 PM EDT 10/30/2023 10:13 PM EDT Qamar Gallardo MD CHEMISTRY ORDERABLES [facility] [place] [address] * pro-Brain Natriuretic Peptide (10/30/2023 10:05 PM EDT) NT-proBNP 375 <=449 pg/mL [facility] Blood 10/30/2023 10:0 5 PM EDT 10/30/2023 10:12 PM EDT Narrative Resulting Agency Comment Spec In Lab Rosa Cornejo MD CHEMISTRY ORDERABLE S [facility] [place] [address] * Hemoglobin A1c (10/30/2023 10:05 PM EDT) Hemoglobin A1c 5.5 4.3 - 5.6 % [facility] Comment: Reference Range: 4.3 - 5.6% 5.7 - 6.4% - Increased Risk of Developing Diabetes Mellitus >= 6.5% - Consistent with diagnosis of Diabetes Mellitus In the absence of hyperglycemia (i.e. plasma glucose > 200 mg/dL) or classic symptoms of hyperglycemia a repeat measurement of HbA1c should be performed on a separate sample to confirm the diagnosis. Diagnosis and Classification of Diabetes Mellitus, Diabetes Care 2013; 36: Suppl. 1, S67-74 Estimated Average Glucose See note mg/dL [facility] Comment: Estimated Average Glucose not appropriate for patients over 70 years of age. Blood 10/30/2023 10:0 5 PM EDT 10/30/2023 10:12 PM EDT Narrative Resulting Agency Comment Spec In Lab Rosa Cornejo MD CHEMISTRY ORDERABLE S [facility] [place] [address] * Lipid Panel (Reflex Direct LDL) (10/30/2023 10:05 PM EDT) Cholesterol, Total 218 mg/dL [facility] Comment: Desirable: ? <200 mg/dL Borderline High: 200-239 mg/dL Higher: ?>zx=026 mg/dL Triglyceride 46 mg/dL [facility] Comment: Normal: ?<150 mg/dL Borderline High: 150-199 mg/dL High: ?200-499 mg/dL Very High: ? >rd=106 mg/dL HDL Cholesterol 64 mg/dL [facility] Comment: Females: High Risk: <50 mg/dL Males: High Risk: <40 mg/dL LDL Cholesterol 145 mg/dL [facility] Comment: Desirable: ? <100 mg/dL Above Desirable: 100-129 mg/dL Borderline High: 130-159 mg/dL High: ?160-189 mg/dL Very High: ? >eh=911 mg/dL Lipid Interpretation See Note [facility] Comment: It is important to review the results of your lipid panel with your health care provider. You can compare your lipid results to the ranges below and whether they are in the desirable range. These ranges are only meant to be used for people without known cardiac disease, history of stroke, or peripheral vascular disease (blockages in the leg arteries or diabetes). If ??you have one of these conditions, your desirable LDL-C (bad cholesterol) will likely be even lower. ACC/AHA Guidelines (most recently Feliciano et al. [facility] 03/23/22): For individuals with atherosclerotic cardiovascular disease (ASCVD)or LDL >kz=867 mg/dL, use a high-intensity statin (40-80 mg atorvastatin or 20-40 mg rosuvastatin with goal >or=50% LDL reduction) For individuals with diabetes, age 40-75 without ASCVD, moderate-intensity statin (goal 30-49% LDL reduction); consider high intensity statin for those with increased risk. For adults without diabetes or ASCVD, aged 40-75 with LDL 70-189 mg/dL, estimate 10 year ASCVD risk with smartphrase .ASCVDRISK or Dynamed Decisions. If 10 year risk is 7.5%-19.9% (intermediate risk), consider moderate intensity statin based on risk enhancers and patient preference. Consider coronary artery calcium test (CT) if there is concern regarding the benefit of a statin. If ten year risk is >or=20%, initiate high-intensity statin. Evaluate for secondary causes of triglycerides >500 mg/dL or LDL >190 mg/dL. Lifestyle modification is a critical component of ASCVD risk reduction. If not reaching LDL goals on maximally tolerated statin, consider ezetimibe and/or a PCSK9 inhibitor: Target for primary prevention: LDL<100 Target for those with ASCVD or diabetes and 10-year risk >or=20%: LDL<70 Target for those with very high risk ASCVD: LDL<55 (Very high risk being the presence of 2 or more of: recent acute coronary syndrome, past myocardial infarction, ischemic stroke, symptomatic peripheral artery disease) Blood 10/30/2023 10:0 5 PM EDT 10/30/2023 10:12 PM EDT Narrative Resulting Agency Comment Spec In Lab Rosa Cornejo MD CHEMISTRY ORDERABLE S [facility] [place] [address] * (ABNORMAL) Comprehensive metabolic panel (non-fasting) (10/30/2023 10:05 PM EDT) Glucose 121 65 - 199 mg/dL [facility] Comment:Diabetes: >=200 mg/d L plus symptoms Blood Urea Nitrogen 14 8 - 18 mg/dL [facility] Creatinine 0.85 0.70 - 1.20 mg/dL [facility] Sodium 142 135 - 145 mmol/L [facility] Potassium 3.9 3.5 - 5.0 mmol/L [facility] Comment: Please note: ??Patients with WBC >100,000 may have falsely elevated Potassium levels. ??For accurate Potassium quantification in these patients send serum separator tube (gold top) for subsequent determinations. ??Contact the Clinical Chemistry Laboratory if there are any questions. Chloride 105 98 - 107 mmol/L [facility] Carbon Dioxide 27 22 - 31 mmol/L [facility] Anion Gap 10 5 - 15 mmol/L [facility] Calcium 8.8 8.5 - 10.5 mg/dL [facility] Protein, Total 6.5 6.1 - 8.0 g/dL [facility] Albumin 4.2 3.2 - 5.2 g/dL [facility] Aspartate Aminotransferase 36(H) 0 - 30 unit/L [facility] Alanine Aminotransferase 17 0 - 30 unit/L [facility] Alkaline Phosphatase 54 35 - 105 unit/L [facility] Bilirubin, Total 0.5 0.2 - 1.3 mg/dL [facility] Est Glomerular Filtration Rate 68 >=60 mL/min/1. 73 m?? [facility] Comment: This patient's estimated GFR was calculated using the 2020 CKD-EPI equation. The estimated GFR can vary from the measured GFR by up to 30% in the absence of rapidly changing kidney function. Assessment of the estimated GFR is not appropriate when creatinine concentrations are rapidly changing. For clinical situations in which a more precise estimate of GFR is necessary, consider alternative methods of GFR estimation such as a 24-hour urine creatinine clearance. Assignment of CKD stage 1-5 for patients with an eGFR near the transition point between stages may be based on clinical assessment of muscle mass and symptoms in addition to eGFR. Blood 10/30/2023 10:0 5 PM EDT 10/30/2023 10:12 PM EDT Narrative Resulting Agency Comment Spec In Lab Rosa Cornejo MD CHEMISTRY ORDERABLE S Performing Organization Address [facility] Co de Phone Number [facility] [place] [address] * Film Library- Storage Only CT Chest (10/30/2023 4:59 PM EDT) Narrative [facility] - 10/30/2023 4:59 PM EDT This exam is auto-finalizing. It's purpose is for storage only. Izaiah Meyer MD IMG FILM LIBRARY ORD ERABLES Performing Organization Address [facility] Co de Phone Number [place], [place] from Last 3 Months Advance Directives * Attempt Cardiopulmonary Resuscitation - Inpatient (Latest Code Status on File) Date Activated Date Inactivated Comments 10/30/2023 9:58 PM 11/03/2023 7:13 PM Question Answer Comments Code Status decision made by: Patient Care Teams Crop Production Advisor Relationship Specialty Start Date End Date Masood Pierson MD [address] [place] [address] PCP - General Family Medicine 11/24/23
--- OUTSIDE RECORDS SUMMARY | 2024-01-27 11:16 | XMS_ITS | Encounter Summary ---
Author Organization On License Of [facility] Address [facility] [place] [address] Care Team Providers Care Plumbers And Top Helpers Name Role Phone Rosie Mathews MD Primary Care Provider [phone] Encounter Details Date Type Department Care Team (Late st Contact Info) Description 11/18/2023 External Results Administration [facility] [place] [address] Social History Tobacco Use Types Packs/Day Years Used Date Smoking Tobacco: Former Smokeless Tobacco: Never Alcohol Use Standard Drinks/Week Comments Not Currently 0 (1 standard drink = 0.6 oz pur e alcohol) [facility] Utilities Answer Date Recorded In the past 12 months has e electric, gas, oil, or water company threatened to shut off services in your [...] place to sleep or slept in a mcc (including now)? No 11/01/2023 [facility] IPV Inpatient [...] on file Sexual Orientation Not on file documented as of this encounter Plan of Treatment Upcoming Encounters Date Type Department Care Team (Late st Contact Info) Description 03/29/2024 11:20 AM EDT Office Visit Cardiology at [address] [phone] Izaiah Meyer MD [facility] [place] [address] documented as of this encounter Procedures Procedure Name Priority Date/Time Associated Diagnosis Comments ECG SCAN Routine 11/18/2023 4:50 PM EDT documented in this encounter Results * Scan Doc: ECG (11/18/2023 4:50 PM EDT) Historical Provider MEDIA MGR SCAN EX T ORDR/RSLT documented in this encounter Visit Diagnoses Not on filedocumented in this encounter Care Teams Plumbers And Top Helpers Relationship Specialty Start Date End Date Rosie Mathews MD [address] [place] [address] PCP - General Family Medicine 11/25/17 11/23/23 documented as of this encounter
--- OUTSIDE RECORDS SUMMARY | 2024-01-27 11:16 | XMS_ITS | Encounter Summary ---
Author Organization [facility] Address [facility] [place] [address] Care Team Providers Care Rn Traveling Name Role Phone Rosie Mathews MD Primary Care Provider [phone] Reason for Referral * Consultation (Routine) - Authorized Specialty Diagnoses / Procedures Referred By Contac t Referred To Contact Cardiology Diagnoses 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 Rosa Hugo MD [facility] [place] [address] Cardiac Rehab, [address] [place] [address] Referral ID Status Reason Start Date Expiration Date Visits Requested Visits Authorized [id number] Authorized Consult, Test & Treat Non PCP 11/03/2023 05/01/2024 36 36 * Home Health Care (Routine) - Authorized Specialty Diagnoses / Procedures Referred By Contac t Referred To Contact Diagnoses Unstable angina Rosa Hugo MD [facility] [place] [address] Referral ID Status Reason Start Date Expiration Date Visits Requested Visits Authorized [id number] Authorized Consult, Test & Treat 11/03/2023 05/01/2024 999 999 Reason for Visit * Auth/Cert (Routine) Specialty Diagnoses / Procedures Referred By John hunt Referred To Contact Diagnoses Unstable angina Chest pain NSTEMI Procedures CARDIAC CATHETERIZATION Rosa Dewey MD [facility] [place] [address] [facility] Referral ID Status Reason Start Date Expiration Date Visits Re quested Visits Authorized [id number] 1 1 Encounter Details Date Type Department Care Team (Latest Contact Info) Description 10/30/2023 5:11 PM EDT - 11/03/2023 5:13 PM EDT Hospital Encounter Heart and Vascular Unit Level 4 [place] [address] Rosa Dewey MD [facility] [place] [address] Jean Laboy MD [facility] [place] [address] Rosa Hugo MD [facility] [place] [address] 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; Tachycardia; Unstable angina Discharge Disposition: Home Social History Tobacco Use Types Packs/Day Years Used Date Smoking Tobacco: Former Smokeless Tobacco: Never Alcohol Use Standard Drinks/Week Comments Not Currently 0 (1 standard drink = 0.6 oz pur e alcohol) [facility] Utilities Answer Date Recorded In the past 12 months has e [employer], gas, oil, or water [employer] threatened to shut off services in your [...] place to sleep or slept in a group home (including now)? No 11/01/2023 DH IPV Inpatient [...] on file documented as of this encounter Last Filed Vital Signs Vital Sign Reading Time Taken Comments Blood Pressure 116/85 11/03/2023 11:06 AM EDT Pulse 71 11/03/2023 11:06 AM EDT Temperature 37 ??C (98.6 ??F) 11/03/2023 11:06 AM EDT Respiratory Rate 18 11/03/2023 11:06 AM EDT Oxygen Saturation 97% 11/03/2023 11:06 AM EDT Inhaled Oxygen Concentration - - Weight 70 kg (154 lb 5.2 oz) 11/03/2023 2:48 AM EDT Height 162.6 cm (5' 4) 10/30/2023 8:54 PM EDT Body Mass Index 26.49 10/30/2023 8:54 PM EDT documented in this encounter Discharge Summaries * Elmer Tamez MD - 11/03/2023 3:18 PM EDT Cardiology - Discharge Summary Patient Name: Adin Santos Patient Age: 83 y.o. Birthdate: 1940 Admit date: 10/30/2023 Discharge date and time: 11/03/2023 Attending Physician: Rosa Hugo MD Follow-up Recommendations for Providers: - Please make sure patient is taking her discharge medications appropriately including: - continue ASA 81mg indefinitely - continue clopidogrel for 12 months then discontinue - continue metoprolol succinate 12.5mg indefinitely - Please continue to evaluate patient's frequency of sinus tach runs. Although asymptomatic, patient noted to frequently go into 130s HR. We have started her on a low-dose beta kristy, please continue to titrate as indicated. - Pt complained of back pain during this hospitalization but noted this pain prior to admission. Ptwill benefit from outpatient workup. Discharge Diagnoses (Hospital Problems) and Secondary Diagnoses (Chronic Problems): Active Hospital Problems Diagnosis Unstable angina Resolved Hospital Problems No resolved problems to display. Procedures/Cardiac Studies: cardiac catheterization, echocardiogram (see full report below) History of Presentation: Adin Santos is a 83 y.o. female PMH significant for hypertension and hyperlipidemia who presented to [facility] as a transfer from [facility] as a possible STEMI alert with acute onset chest pain. The patient reports that her symptoms initially began on Tuesday when she was walking to [place] and experienced bilateral arm heaviness while walking with no other symptoms. Then, this afternoon shereports developing bilateral achy shoulder pain and nonradiating substernal left-sided chest pressure that was 7/10 in severity after coming home from [facility]. The patient denies any associated fevers, chills, diaphoresis, lightheadedness/dizziness, syncope/presyncope, dyspnea (either at rest or on exertion), palpitations, orthopnea, or PND. The patient subsequently presented to [facility] as a walk-in for further evaluation. Upon presentation to outside hospital, the patient was afebrile, heart rate 71, hypertensive (BP 217/68), and was saturating 96% in room air. CBC within normal limits. CMP significant for creatinine of 1.2 and BUN of 19. Troponin was negative x 2. Initial ECG was concerning for possible STEMI with inferior TRU, although on repeat, her TRU resolved. Cardiology at [facility] was consulted for transfer; the patient was loaded with aspirin 324 mg and ticagrelor 180 mg, started on a heparin drip, and given nitroglycerin with improvement in chest pain. Upon arrival to [facility], the patient was taken directly to the [facility]. Two lesions were discovered: one in the prox RCA (felt to almost be a PARCEL [employer]IVER but they were able to wire, balloon, and stent) and a second that was not yet addressed in the Lcx/OM (plan for staged PCI). On post-cath assessment, the patient reported being chest pain-free and asymptomatic. Hospital Course: #ACS, concern for possible STEMI at the outside hospital #S/p PCI to proximal RCA (10/29) #S/p staged PCI to LCX/OM (10/31) #Hyperlipidemia #HTN #Tachycardia Following the initial PCI to the RCA, she was started on DAPT (ASA 81mg, clopidogrel 75mg). The dayfollowing her PCI to proximal RCA, she began feeling much better. She had been started on a nitro drip for pain and was weaned off of it. We did a TTE which showed EF of 64%. She began running blood pressures in the 170s/70s and we started her on hydralazine TID. This kept her in the 140s/70-80s. We trended the troponins until they peaked the day following the initial PCI (10/30). Her staged PCI to LCX/OM (10/31) went as planned. Of note, pt had history of and displayed inpatient, intermittent runs of sinus tachycardia (100-130s) although asymptomatic from that standpoint. On 11/01, we adjusted her blood pressure medicine from hydralazine to losartan 50mg and spironolactone 25mg. Ahead of her discharge on 11/02, we added metoprolol succinate 12.5mg to help control the intermittent runs oftachycardia. She is scheduled to receive cardiac rehab. #Fever #Foul-smelling urine #Leukocytosis On Hospital Day 3 (11/01), she developed a slightly elevated WBC at 10.0 compared to 8.7 the morning before her staged PCI. She also had foul smelling urine that was dark and smelt foul. The same dayshe became febrile at 100.4. The initial UA was reflexed and she was started on ceftriaxone and given 925mg of acetaminophen. Her fever broke shortly thereafter and remained abated. The night leadinginto her discharge she had a few incontinent loose stools. She mentions that she believes this to be a result of the egg salad that had been sitting out in her room that she ate later in the day. On the morning of her discharge she feels great and does not note any abdominal pain or bowel issues. Her antibiotic was transitioned to cefpodoxime 200mg for 7 days. Important Studies and Lab Data: Admission Labs: Discharge Labs: Recent Labs 11/03/2334511/02/233411/01/23220511/01/2330810/31/23 0305 WBC 8.3 10.0* 10.4* 8.7 11.5* HGB 13.1 13.8 14.0 12.5 12.6 PLATELET 181 198 197 184 206 Recent Labs 11/03/2334511/02/233411/01/2330810/31/23 0137 10/30/23 2205 NA 139 136 137 140 142 K 4.0 3.6 3.4* 3.9 3.9 CL 108* 102 105 107 105 CO2 19* 25 24 25 27 BUN 13 9 14 13 14 CREATININE 0.83 0.83 0.83 0.81 0.85 GLUCOSE 105 125 100 114 121 Recent Labs 11/03/2334511/02/233411/01/23 0309 CALCIUM 8.2* 9.0 8.6 MAGNESIUM 0.90 0.87 0.82 PHOS 3.2 1.6* 2.5 No results for input(s): CK, TROPONINT in the last 168 hours. Recent Labs 10/30/232204 AST 36* ALT 17 ALKPHOS 54 BILITOT 0.5 Recent Labs 10/31/23 030 INR 1.1 Lab Results Component Value Date CHLPL 218 10/30/2023 HDL 64 10/30/2023 TRIG 46 10/30/2023 LDLCHOL 145 10/30/2023 Recent Labs 10/30/23 2205 HA1C 5.5 Studies: Chest xray following onset of fever (11/01): IMPRESSION 1. No focal consolidation to suggest pneumonia. 2. Stable cardiomediastinal silhouette and the setting of known ascending aortic aneurysm. Cardiac Catheterization: (10/31) PCI of LCX/OM Dual Antiplatelet (DAPT) Recommendations: Drug eluting stent (RADHA) inserted. P2Y12 Loading dose administered prior to arrival in the dental laboratory supervisor. Recommended anti-platelet/anti-thrombotic regimen: Continue aspirin 81 mg daily for indefinitely. Continue clopidogrel 75 mg daily for 12 months then stop. The 1 year bleeding risk as calculated by the PRECISE DAPT score is High risk. This patient may be at high bleeding risk. In patients treated with DAPT after coronary stent implantation who develop a high risk of bleeding, or are at high risk of severe bleeding complication, or develop significant overt bleeding, discontinuation of P2Y12 inhibitor therapy after 3 months for stable ischemic heart disease (SIHD) or after 6 months for acute coronary syndrome (ACS) may be reasonable. Conclusions: * Obstructive disease of the LCX * Nonobstructive disease of the LM and LAD * Successful stent insertion of the mid LCX lesion * Successful stent insertion of the proximal LCX lesion * See Dual Antiplatelet (DAPT) Recommendations above TTE (10/30): Interpretation Summary -The left ventricle is of [...] -There is no prior echocardiogram for comparison. CXR (10/29): IMPRESSION 1. Examination limited by low lung volumes. 2. Findings suggesting pulmonary vascular congestion with possible mild interstitial edema. 3. Known ascending aortic aneurysm, as seen on recent CT. 4. Nonspecific widening mediastinum. This can be secondary to magnification from portable technique and low lung volumes. Findings similar to measurer machine radiograph from CT 10/30/2023. Pending Studies and Lab Data: none Discharge Conditions/Prognosis: - ACS --> stable and well controlled with DAPT and beta-kristy - UTI --> stable and well controlled with cefpodoxime and acetaminophen prn Discharge to: Home with cardiac rehab Discharge Medications: Your Medications Some of the medications listed here do not show instructions, such as how often to take the medication. Ask your doctor or nurse how to use these medications. Specifically ask about this and similar medications: CIS Free Text Med - vitamin b 125 complex New Medications Dose Details atorvastatin 80 mg tablet Commonly known as: Lipitor Take 1 tablet by mouth every evening. 80 mg Quantity: 90 tablet Refills: 3 cefPODOXime 200 mg tablet Commonly known as: Vantin Take 1 tablet by mouth 2 times daily for 6 days. 200 mg Quantity: 12 tablet Refills: 0 clopidogreL 75 mg tablet Commonly known as: Plavix Take 1 tablet by mouth daily. Start taking on: November 04, 2023 75 mg Quantity: 90 tablet Refills: 3 losartan 50 mg tablet Commonly known as: Cozaar Take 1 tablet by mouth daily. Start taking on: November 04, 2023 50 mg Quantity: 90 tablet Refills: 3 metoprolol succinate XL 25 mg ER 24 hr tablet Commonly known as: Toprol-XL Take 0.5 tablets by mouth daily. Start taking on: November 04, 2023 12.5 mg Quantity: 30 tablet Refills: 12 nitroGLYcerin 0.4 mg sublingual tablet Commonly known as: Nitrostat Place 1 tablet under the tongue every 5 minutes as needed for Chest pain. 0.4 mg Quantity: 90 tablet Refills: 12 spironolactone 25 mg tablet Commonly known as: Aldactone Take 1 tablet by mouth daily. Start taking on: November 04, 2023 25 mg Quantity: 90 tablet Refills: 3 Continued medications with new dosing Dose Details aspirin EC 81 mg EC (DR) tablet Take 1 tablet by mouth daily. Start taking on: November 04, 2023 What changed: See the new instructions. 81 mg Quantity: 30 tablet Refills: 3 CIS FREE TEXT MED What changed: Another medication with the same name was removed. Continue taking this medication, and follow the directions you see here. Refills: 0 Continued medications, unchanged Dose Details CALCIUM ORAL Refills: 0 VITAMIN B-12 ORAL Refills: 0 VITAMIN C ORAL Refills: 0 STOPPED Medications amitriptyline 25 mg tablet Commonly known as: Elavil ATENOLOL ORAL DIOVAN HCT ORAL potassium chloride 10 mEq ER capsule Commonly known as: Klor-Con Sprinkle simvastatin 20 mg tablet Commonly known as: Zocor Vicodin 5-500 mg Tablet Generic drug: HYDROcodone-acetaminophen VITAMIN E ORAL Updated Allergies/ADRs: Allergies Allergen Reactions Hydrocodone CIS - Nausea/Vomiting Hydrocortisone CIS - swelling Oxycodone-Acetaminophen CIS - Nausea/Vomiting Penicillins Itching Future Appointments and Orders Future Appointments and Orders Future Appointments Provider Department Dept Phone 11/24/2023 10:40 AM Izaiah Meyer MD Cardiology at [place] Arrive at: [facility] [address] [phone] Future Orders Complete By Expires Referral to Cardiac Rehab [[id number] Custom] As directed Process Instructions: If no progress note charted, please enter Clinical details in comments. Scheduling Instructions: Questions: My question or request is: STEMI. Cardiac rehab at [facility]. Referral to Home Health [REF34 Custom] As directed Process Instructions: If no progress note charted, please enter Clinical details in comments. Scheduling Instructions: Comments: Please evaluate Adin Santos for admission to Home Health. [address] [facility] [address] (home) Date of : 1940 Inpatient DOCUMENTATION FOR VNA SERVICES (INCLUDING THOSE PATIENTS WITH MEDICARE COVERAGE REQUIRING HOME VNA SERVICES AND/OR HOSPICE SERVICES) PATIENT'S LOCATION: Adin Santos [address] [facility] [id number] (home) Cell: Telephone Information: Oil Analyst's Name: self In discussion with the attending physician, it is certified that this patient is under their care and that they, or a Nurse Practitioner, Clinical Nurse specialist or Physician Decal Decorator who is working directly with them, had a face to face encounter that meets the physician face to face encounter requirements with this patient on 11/03/23 The encounter with the patient was in whole, or in part, for the following medical condition, whichis the primary reason for home health care services: NSTEMI In discussion with the provider, it is certified that, based on their findings, the following services are medically necessary for home health services. To provide the following care/treatments with the clinical findings supporting the need for services as follows: HOME CARE ORDERS: RN ORDERS: Assess vital signs, cardiopulmonary status, nutrition, hydration, elimination -Additional Orders: Monitor medication effectiveness and management and Reinforce education regarding health issues HOME HEALTH CARE AGENCY: [facility] [address] [place] [address] START OF CARE: within 24-48 hours of discharge In discussion with the attending physician, it is certified that the clinical findings support thatthis patient is homebound because absences from home require considerable and taxing effort due to:Unsteady gait, poor balance, requiring assistive devices and/or assistance of another. Please note that any additional orders needs or changes will need to be obtained from this patient's PCP: Rosie Mathews MD [address] / [facility] [address] . All A agencies which cover the area of patient's residence have been reviewed, either verbally or in writing, and patient/family have chosen the home health care agency noted. Questions: Disciplines Requested: Nursing General Instructions None Patient Instructions Patient Instructions on Discharge Why you were hospitalized - You were admitted to the hospital for chest pain and were found to haveelevated heart enzymes concerning for heart attack. You underwent coronary angiography (study to look at your heart arteries), which showed blockage in two arteries. Stents were placed on the two arteries. You tolerated the procedures well, and you did not have any complications from the procedure.You were started on medications to prevent the stents from closing. You should take them daily. An echocardiogram (heart ultrasound) done showed normal pump function of the heart but one of your heart martin was a little stunned. You will need to follow up with cardiology to ensure it heals with time and is stable. During the hospitalization you had an episode of fever and had burning with urination. Urine study done was concerning for a urinary tract infection so you were started on antibiotics Call your doctor or seek medical attention if you develop the following - chest pain, shortness of breath, passing out, feeling dizzy upon standing, passing out, diarrhea, constipation lasting longerthan 2 days, fevers (temperature over 100.3), chills, abdominal pain, vomiting, difficulty or discomfort when urinating, bloody or black bowel movements, or any other acute or concerning symptom. Activity level - As tolerated. Do not lift more than 10-15 lbs for the next 4-6 weeks Diet - As previously Driving - Please do NOT drive under the influence of alcohol or medications and substances that alter your consciousness Medication Changes - Heart attack [DO NOT FORGET TO TAKE THESE MEDICATIONS] Aspirin 81 mg daily (to prevent your stent from forming clots and closing) Clopidogrel 75 mg daily (to prevent your stent from forming clots and closing) Atorvastatin 80 mg daily (to keep your cholesterol level low and reduce risk of blood vessel narrowing) Metoprolol succinate 12.5 mg daily Blood pressure Losartan 25 mg daily Spironolactone 25 mg daily UTI Cefpodoxime 200 mg every 12 hours (for 6 more days; ending November 09, 2023) If you have fevers, chills, burning with urination or other symptoms concerning for an infection, please reach out to your PCP or go to the nearest hospital. STOP these medications: Atenolol Simvastatin Your Medications Some of the medications listed here do not show instructions, such as how often to take the medication. Ask your doctor or nurse how to use these medications. Specifically ask about this and similar medications: CIS Free Text Med - vitamin b 125 complex New Medications Dose Details atorvastatin 80 mg tablet Commonly known as: Lipitor Take 1 tablet by mouth every evening. 80 mg Quantity: 90 tablet Refills: 3 cefPODOXime 200 mg tablet Commonly known as: Vantin Take 1 tablet by mouth 2 times daily for 6 days. 200 mg Quantity: 12 tablet Refills: 0 clopidogreL 75 mg tablet Commonly known as: Plavix Take 1 tablet by mouth daily. Start taking on: November 04, 2023 75 mg Quantity: 90 tablet Refills: 3 losartan 50 mg tablet Commonly known as: Cozaar Take 1 tablet by mouth daily. Start taking on: November 04, 2023 50 mg Quantity: 90 tablet Refills: 3 metoprolol succinate XL 25 mg ER 24 hr tablet Commonly known as: Toprol-XL Take 0.5 tablets by mouth daily. Start taking on: November 04, 2023 12.5 mg Quantity: 30 tablet Refills: 12 nitroGLYcerin 0.4 mg sublingual tablet Commonly known as: Nitrostat Place 1 tablet under the tongue every 5 minutes as needed for Chest pain. 0.4 mg Quantity: 90 tablet Refills: 12 spironolactone 25 mg tablet Commonly known as: Aldactone Take 1 tablet by mouth daily. Start taking on: November 04, 2023 25 mg Quantity: 90 tablet Refills: 3 Continued medications with new dosing Dose Details aspirin EC 81 mg EC (DR) tablet Take 1 tablet by mouth daily. Start taking on: November 04, 2023 What changed: See the new instructions. 81 mg Quantity: 30 tablet Refills: 3 CIS FREE TEXT MED What changed: Another medication with the same name was removed. Continue taking this medication, and follow the directions you see here. Refills: 0 Continued medications, unchanged Dose Details CALCIUM ORAL Refills: 0 VITAMIN B-12 ORAL Refills: 0 VITAMIN C ORAL Refills: 0 STOPPED Medications amitriptyline 25 mg tablet Commonly known as: Elavil ATENOLOL ORAL DIOVAN HCT ORAL potassium chloride 10 mEq ER capsule Commonly known as: Klor-Con Sprinkle simvastatin 20 mg tablet Commonly known as: Zocor Vicodin 5-500 mg Tablet Generic drug: HYDROcodone-acetaminophen VITAMIN E ORAL Follow up Appointments: Doctor Where Phone # Date Time PCP: Rosie Mathwes MD / Dr. Masood Pierson [address] [place] [id number] 11/09/23 1:55 PM arrival for 2:10 PM appointment Safety Advisor: Izaiah Meyer MD [address] [place] [id number] , 11/24/2023 10:40 AM Your Inpatient Medical Team at [facility] Name(s) of your inpatient provider(s): Attending physician: Rosa Hugo MD Resident physicians: Emile Robles MD; Elmer Tamez MD If you have non-emergent questions, prior to your follow-up visit call: Tuesday-Tuesday between the hours of 8AM-5PM please call the Cardiology Clinic [phone] to speak with a nurse. All other hours please call the Hospital Pot Operator [phone] and ask to speak to the prototype carpenter on-call. Your Primary Care Provider Rosie Mathews MD [phone] For questions regarding this document or issues relating to this hospitalization on the Medical Service, please contact your inpatient physician through the [facility] Pot Operator . Issues afterhours and on weekends will be handled by the Safety Advisor staff on-call. Associated attestation - Rosa Hugo MD - 11/04/2023 3:21 PM EDT I agree with the assessment and plan documented below. Rosa Hugo MD Advanced Heart Disease and Pulmonary Hypertension documented in this encounter Discharge Instructions * Patient Instructions* Emile Robles MD - 11/02/2023 9:43 AM EDT Patient Instructions on Discharge Why you were hospitalized - You were admitted to the hospital for chest pain and were found to haveelevated heart enzymes concerning for heart attack. You underwent coronary angiography (study to look at your heart arteries), which showed blockage in two arteries. Stents were placed on the two arteries. You tolerated the procedures well, and you did not have any complications from the procedure.You were started on medications to prevent the stents from closing. You should take them daily. An echocardiogram (heart ultrasound) done showed normal pump function of the heart but one of your heart martin was a little stunned. You will need to follow up with cardiology to ensure it heals with time and is stable. During the hospitalization you had an episode of fever and had burning with urination. Urine study done was concerning for a urinary tract infection so you were started on antibiotics Call your doctor or seek medical attention if you develop the following - chest pain, shortness of breath, passing out, feeling dizzy upon standing, passing out, diarrhea, constipation lasting longerthan 2 days, fevers (temperature over 100.3), chills, abdominal pain, vomiting, difficulty or discomfort when urinating, bloody or black bowel movements, or any other acute or concerning symptom. Activity level - As tolerated. Do not lift more than 10-15 lbs for the next 4-6 weeks Diet - As previously Driving - Please do NOT drive under the influence of alcohol or medications and substances that alter your consciousness Medication Changes - Heart attack [DO NOT FORGET TO TAKE THESE MEDICATIONS] Aspirin 81 mg daily (to prevent your stent from forming clots and closing) Clopidogrel 75 mg daily (to prevent your stent from forming clots and closing) Atorvastatin 80 mg daily (to keep your cholesterol level low and reduce risk of blood vessel narrowing) Metoprolol succinate 12.5 mg daily Blood pressure Losartan 25 mg daily Spironolactone 25 mg daily UTI Cefpodoxime 200 mg every 12 hours (for 6 more days; ending November 09, 2023) If you have fevers, chills, burning with urination or other symptoms concerning for an infection, please reach out to your PCP or go to the nearest hospital. STOP these medications: Atenolol Simvastatin Your Medications Some of the medications listed here do not show instructions, such as how often to take the medication. Ask your doctor or nurse how to use these medications. Specifically ask about this and similar medications: CIS Free Text Med - vitamin b 125 complex New Medications Dose Details atorvastatin 80 mg tablet Commonly known as: Lipitor Take 1 tablet by mouth every evening. 80 mg Quantity: 90 tablet Refills: 3 cefPODOXime 200 mg tablet Commonly known as: Vantin Take 1 tablet by mouth 2 times daily for 6 days. 200 mg Quantity: 12 tablet Refills: 0 clopidogreL 75 mg tablet Commonly known as: Plavix Take 1 tablet by mouth daily. Start taking on: November 04, 2023 75 mg Quantity: 90 tablet Refills: 3 losartan 50 mg tablet Commonly known as: Cozaar Take 1 tablet by mouth daily. Start taking on: November 04, 2023 50 mg Quantity: 90 tablet Refills: 3 metoprolol succinate XL 25 mg ER 24 hr tablet Commonly known as: Toprol-XL Take 0.5 tablets by mouth daily. Start taking on: November 04, 2023 12.5 mg Quantity: 30 tablet Refills: 12 nitroGLYcerin 0.4 mg sublingual tablet Commonly known as: Nitrostat Place 1 tablet under the tongue every 5 minutes as needed for Chest pain. 0.4 mg Quantity: 90 tablet Refills: 12 spironolactone 25 mg tablet Commonly known as: Aldactone Take 1 tablet by mouth daily. Start taking on: November 04, 2023 25 mg Quantity: 90 tablet Refills: 3 Continued medications with new dosing Dose Details aspirin EC 81 mg EC (DR) tablet Take 1 tablet by mouth daily. Start taking on: November 04, 2023 What changed: See the new instructions. 81 mg Quantity: 30 tablet Refills: 3 CIS FREE TEXT MED What changed: Another medication with the same name was removed. Continue taking this medication, and follow the directions you see here. Refills: 0 Continued medications, unchanged Dose Details CALCIUM ORAL Refills: 0 VITAMIN B-12 ORAL Refills: 0 VITAMIN C ORAL Refills: 0 STOPPED Medications amitriptyline 25 mg tablet Commonly known as: Elavil ATENOLOL ORAL DIOVAN HCT ORAL potassium chloride 10 mEq ER capsule Commonly known as: Klor-Con Sprinkle simvastatin 20 mg tablet Commonly known as: Zocor Vicodin 5-500 mg Tablet Generic drug: HYDROcodone-acetaminophen VITAMIN E ORAL Follow up Appointments: Doctor Where Phone # Date Time PCP: Rosie Mathews MD / Dr. Masood Pierson [address] [place] [id number] 11/09/23 1:55 PM arrival for 2:10 PM appointment Safety Advisor: Izaiah Meyer MD [address] [place] [address] , 11/24/2023 10:40 AM Your Inpatient Medical Team at [facility] Name(s) of your inpatient provider(s): Attending physician: Rosa Hugo MD Resident physicians: Emile Robles MD; Elmer Tamez MD If you have non-emergent questions, prior to your follow-up visit call: Tuesday-Tuesday between the hours of 8AM-5PM please call the Cardiology Clinic [phone] to speak with a nurse. All other hours please call the Hospital Pot Operator [phone] and ask to speak to the prototype carpenter on-call. Your Primary Care Provider Rosie Mathews MD [phone] documented in this encounter Medications at Time of Discharge Medication Sig Dispensed Refills Start Date End Date oxyBUTYnin (Ditropan) 5 mg tablet Take 5 mg by mouth. 10/03/2023 aspirin EC 81 mg EC (DR) tablet Take 1 tablet by mouth daily. 30 tablet 3 11/04/2023 atorvastatin (Lipitor) 80 mg tablet Take 1 tablet by mouth every evening. 90 tablet 3 11/03/2023 clopidogreL (Plavix) 75 mg tablet Take 1 tablet by mouth daily. 90 tablet 3 11/04/2023 losartan (Cozaar) 50 mg tablet Take 1 tablet by mouth daily. 90 tablet 3 11/04/2023 metoprolol succinate XL (Toprol-XL) 25 mg ER 24 hr tablet Take 0.5 tablets by mouth daily. 30 tablet 12 11/04/2023 nitroGLYcerin (Nitrostat) 0.[address] 1 tablet under the tongue every 5 minutes as needed for Chest pain. 90 tablet 12 11/03/2023 spironolactone (Aldactone) 25 mg tablet Take 1 tablet by mouth daily. 90 tablet 3 11/04/2023 CIS Free Text Med - vitamin b 125 complex 01/30/2008 ASCORBIC ACID (VITAMIN C ORAL) 01/30/2008 CYANOCOBALAMIN, VITAMIN B-12, (VITAMIN B-12 ORAL) 01/30/2008 CALCIUM ORAL 01/30/2008 cefPODOXime (Vantin) 200 mg tablet Take 1 tablet by mouth 2 times daily for 6 days. 12 tablet 11/03/2023 11/09/2023 documented as of this encounter Progress Notes * Elmer Tamez MD - 11/02/2023 7:38 AM EDT Inpatient Cardiology Progress Note Patient Name: Adin Santos Date of Admission: 10/30/2023 ( Hospital Day 3 days ) Service: S1 ID: Adin Santos is a 83 y.o. female PMH significant for hypertension and hyperlipidemia who presented to [facility] as a transfer from [facility] as a possible STEMI alert with acute onset chest pain who is s/p PCI of RCA (10/29) and s/p PCI of LCX/OM (10/31). Active Problems: Active Hospital Problems Diagnosis Unstable angina Resolved Hospital Problems No resolved problems to display. 24 hr events: - 1844: given IV hydral (since unable to sit up on bedrest post-cath) - 1999: BP stable, Hgb stable at 14, bruising from old site - 2299: febrile at 100.4, RN mentioned foul-smelling urine, UA and blood cultures ordered, Tylenol ordered - notes a sore throat this morning and experiencing intense chills yesterday evening before runningthe fever - also notes an upper back pain in between the scapula ROS: Denies CP, SOB, palpitations, PND, Orthopnea, dizziness/LH, LE swelling or pain, n/v, abd pain. Physical Exam: Last value Range last 24 hrs Temperature Temp: 36.7 ??C (98.1 ??F) Temp: [36.7 ??C (98 ??F)-38 ??C (100.4 ??F)] Heart Rate Heart Rate: (!) 127 Heart Rate: [56-140] Blood Pressure BP: 115/78 BP: (111-188)/(73-111) Respiratory Rate Resp: 20 Resp: [13-29] SpO2 SpO2: 97 % SpO2: [88 %-100 %] Weight: Patient Vitals for the past 168 hrs: Weight 11/02/23 05 69.8 kg (153 lb 14.4 oz) 11/01/2356 70.8 kg (156 lb 1.6 oz) 10/31/23529 73.9 kg (162 lb 14.7 oz) 10/30/232053 75.8 kg (167 lb 1.7 oz) Admit Weight: 75.8 kg Yesterday's net I/O's: Intake/Output Summary (Last 24 hours) at 11/02/2023 1216 Last data filed at 11/02/2023 1200 Gross per 24 hour Intake 378 ml Output 1600 ml Net -1222 ml Net I/O's since admission: Patient Vitals for the past 168 hrs: Weight 11/02/23 05 69.8 kg (153 lb 14.4 oz) 11/01/2356 70.8 kg (156 lb 1.6 oz) 10/31/23529 73.9 kg (162 lb 14.7 oz) 10/30/232053 75.8 kg (167 lb 1.7 oz) Gen: pleasant female in NAD HEENT: MMM, no pharyngeal erythema CV: RRR, no murmurs, gallops, or rubs appreciated Resp: CTAB, normal work of breathing, unable to breathe deeply Abd: nondistended, soft, NT, nabs throughout Ext: WWP, ++ dp/pt pulses, no lower extremity edema Neuro: alert and responsive. Without focal deficit Labs Recent Labs 11/02/233411/01/23220511/01/23 030 WBC 10.0* 10.4* 8.7 HGB 13.8 14.0 12.5 HCT 39.8 41.1 36.8 PLATELET 198 197 184 Recent Labs 11/02/233411/01/2330810/31/23 0137 NA 136 137 140 K 3.6 3.4* 3.9 CL 102 105 107 CO2 25 24 25 BUN 9 14 13 CREATININE 0.83 0.83 0.81 Recent Labs 10/30/232204 AST 36* ALT 17 ALKPHOS 54 BILITOT 0.5 Recent Labs 11/02/233411/01/2330810/31/23 0137 CALCIUM 9.0 8.6 8.6 MAGNESIUM 0.87 0.82 0.83 PHOS 1.6* 2.5 3.2 Recent Labs 10/31/23 0305 INR 1.1 PT 12.6* PTT 67* No results for input(s): CK, TROPONINT in the last 168 hours. Telemetry: Mode Rate Rhythm Ectopy? 71 sinus none Imaging/Studies: Chest xray (11/01): IMPRESSION 1. No focal consolidation to suggest pneumonia. 2. Stable cardiomediastinal silhouette and the setting of known ascending aortic aneurysm. Cardiac Catheterization: (10/31) PCI of LCX/OM - results note pending Scheduled Medications: potassium phosphate 15 mmol Intravenous Q4H spironolactone 25 mg Oral Daily losartan 50 mg Oral Daily aspirin EC 81 mg Oral Daily clopidogreL 75 mg Oral Daily atorvastatin 80 mg Oral QPM sodium chloride 0.9 % (flush) 5 mL Intravenous BID heparin (porcine) 5,000 Units Subcutaneous Q8H ERIC PRN Medications: hydrALAZINE, acetaminophen, sodium chloride 0.9 % (flush), lidocaine, nitroGLYcerin Assessment/Plan: Adin Santos is a 83 y.o. female PMH significant for hypertension and hyperlipidemia who presented to [facility] as a transfer from [facility] as a possible STEMI alert with acute onset chest pain who is s/p PCI of RCA (10/29) and s/p PCI of LCX/OM (10/31). #ACS, concern for possible STEMI at the outside hospital #S/p PCI to proximal RCA (10/29) #S/p staged PCI to LCX/OM (10/31) #Hyperlipidemia #HTN #Tachycardia Ms. Santos notes no chest pain this morning. She did describe pain in her upper back in between herscapulae. I am less inclined to think it is due to her stable aortic aneurysm or procedure yesterday due to her being HDS. Furthermore, her staged PCI yesterday was executed seamlessly. Therefore, she is in good shape in terms of her ACS, so continuing her DAPT therapy and transitioning her blood pr essure medications to ones she could be discharged on are the plans for today. Of note, patient still demonstrates episodes of tachycardia with rates up to 140s overnight, tele with appearance of sinus tach but will obtain EKG. - S/p PCI to proximal RCA - S/p staged PCI to LCM/OM - Continue aspirin 81 mg daily - Continue clopidogrel 75 mg daily - Continue losartan (50mg) QD - Continue spironolactone 25mg QD - Continue high intensity statin therapy with atorvastatin 80 mg daily - Continue Strict I&O, Daily wts - Mg >1; K>4 - Cardiac risk stratification: A1c 5.5, TSH 3.35, LDL 145 - Cardiac rehab on d/c #Fever #Foul-smelling urine #Sore throat #Leukocytosis Tylenol 925mg was given at midnight and her temperature has been 98 ever since. UA and blood cultures pending. WBC was down-trending this morning from the 10.4 at 22:06 yesterday to 10.0 at 00:35. This morning she mentioned she has a sore throat and had intense chills last night. Her chest xray wasnegative. Ms. Santos mentioned dysuria overnight but does not have hematuria. Her UA has been sent. Given her sore throat and the chills she experienced yesterday and the lack of supra-pubic tenderness, I am more inclined to think of this as an URI picture. We sent for a viral panel as well. We should treat the symptoms/disease for UTI/URI accordingly based on results. - Continue acetaminophen 925mg po prn - Appreciate results of UA and blood culture - F/u respiratory viral panel #Routine Diet: NPO diet (Give Meds) DVT Prophylaxis: Subcutaneous heparin GI Prophylaxis: Not applicable Code Status: Attempt Cardiopulmonary Resuscitation - Inpatient Dispo: Pending clinical course Elmer Tamez, PGY1 Resident on Cardiology Service Cardiology S1 (Pager [phone]) Note written in conjunction with Claudio Perla [facility] Medical Student, MS3 Associated attestation - Rosa Hugo MD - 11/02/2023 1:26 PM EDT I saw and evaluated the patient with the housestaff and agree with the assessment and plan documented below. 83 y.o. female with PMH HTN HLD presenting as STEMI. She is s/p prox RCA PCI 10/30 and PCI OM/LCx 10/31. On asa/plavix High intensity statin She was febrile overnigh twith concern for UTI. We will start abx prior to DC. Rosa Hugo MD Advanced Heart Disease and Pulmonary Hypertension * Danica Shipley RN - 11/02/2023 6:08 AM EDT Sustained tachycardia in the 120-150's overnight. BP WNL w/ systolic in the 110- 140's, MAP>65. Febrile; Tmax 100.4F. Asymptomatic. R groin site w/ significant bruising. L groin site has some mild bruising, no tenderness. Romel COFFMAN aware. 12 lead EKG done. Hemogram drawn; H&H 14. CXR negative. BCx2 drawn. UA sent. * Maria Alejandra Urena MD - 11/01/2023 8:00 PM EDT Post Cardiac Catheterization Check Note Subjective: No chest pain, dyspnea, abdominal/groin/back pain. No rash. No weakness/numbness/tingling. No bleeding/swelling from access site. Objective: Blood pressure (!) 126/111, pulse (!) 132, temperature 36.8 ??C (98.2 ??F), temperature source Oral, resp. rate 25, height 162.6 cm (5' 4), weight 70.8 kg (156 lb 1.6 oz), SpO2 96%. General: Lying in bed in NAD. Site: access site without hematoma or ecchymoses. dressing c/d/i. No bruit. Nontender. Extrem: no livedo reticularis, warm/symmetric, sensation intact/symmetric, symmetric 2+ PT/DP pulses. Noted to have sizeable bruising of previous R femoral cath site. A/P: s/p cath with benign-appearing left femoral access site. Due to sustained tachycardia (Hr 130-140s)after cath, will check hemogram out of abundance of caution given R femoral access site bruising. Maria Alejandra Urena MD * Nirmala Webb - 11/01/2023 11:25 AM EDT Mid Level Provider Encounter Note Patient Name: Adin Santos : [id number] MR#: [id number] Admit Date: 10/30/2023 5:11 PM Hospital Day 2 days Narrative: Self initiated visit to patient for Spiritual support in a regular unit rounds. Assessment: Patient is in the bathroom at the time of this visit. Not a good time for [place] visit. Intervention and Outcome: An attempted visit to patient for Spiritual support. Patient is not available at the time of this visit. Patient is in the bathroom per a nurse in the room. Not a good time for Spiritual support. Follow-up: Another time. Time in Direct Care: Nirmala Webb 11/01/2023 * Elmer Tamez MD - 11/01/2023 7:22 AM EDT Inpatient Cardiology Progress Note Patient Name: Adin Santos Date of Admission: 10/30/2023 ( Hospital Day 2 days ) Service: S1 ID: Adin Santos is a 83 y.o. female PMH significant for hypertension and hyperlipidemia who presented to [facility] as a transfer from [facility] as a possible STEMI alert with acute onset chest pain who is s/p PCI of RCA (10/29). Active Problems: Active Hospital Problems Diagnosis Unstable angina Resolved Hospital Problems No resolved problems to display. 24 hr events: - No acute events overnight - started hydralazine TID as she was riding systolic pressures 170s yesterday PM ROS: Denies CP, SOB, palpitations, PND, Orthopnea, dizziness/LH, LE swelling or pain, n/v, abd pain. Physical Exam: Last value Range last 24 hrs Temperature Temp: 36.9 ??C (98.4 ??F) Temp: [36.7 ??C (98.1 ??F)-37 ??C (98.6 ??F)] Heart Rate Heart Rate: 63 Heart Rate: [52-114] Blood Pressure BP: 170/84 BP: (133-177)/(70-99) Respiratory Rate Resp: 16 Resp: [16-28] SpO2 SpO2: (!) 88 % SpO2: [88 %-99 %] Weight: Patient Vitals for the past 168 hrs: Weight 11/01/23 0057 70.8 kg (156 lb 1.6 oz) 10/31/23 0530 73.9 kg (162 lb 14.7 oz) 10/30/232053 75.8 kg (167 lb 1.7 oz) Admit Weight: 75.8 kg Yesterday's net I/O's: Intake/Output Summary (Last 24 hours) at 11/01/2023 1413 Last data filed at 11/01/2023 1308 Gross per 24 hour Intake 0 ml Output 700 ml Net -700 ml Net I/O's since admission: Net IO Since Admission: -1,009.5 mL [11/01/23 1413] Patient Vitals for the past 168 hrs: Weight 11/01/23 0057 70.8 kg (156 lb 1.6 oz) 10/31/23 05 73.9 kg (162 lb 14.7 oz) 10/30/232053 75.8 kg (167 lb 1.7 oz) Gen: pleasant female in NAD HEENT: MMM CV: RRR, no murmurs, gallops, or rubs appreciated Resp: CTAB, normal work of breathing Abd: nondistended, soft, NT, nabs throughout Ext: WWP, ++ dp/pt pulses, no lower extremity edema Neuro: alert and responsive. Without focal deficit Labs Recent Labs 11/01/2330810/31/2330410/31/23136 WBC 8.7 11.5* 10.6* HGB 12.5 12.6 13.0 HCT 36.8 37.1 37.9 PLATELET 184 206 204 Recent Labs 11/01/2330810/31/2313610/30/232204 NA 137 140 142 K 3.4* 3.9 3.9 CL 105 107 105 CO2 24 25 27 BUN 14 13 14 CREATININE 0.83 0.81 0.85 Recent Labs 10/30/232204 AST 36* ALT 17 ALKPHOS 54 BILITOT 0.5 Recent Labs 11/01/2330810/31/2313610/30/232204 CALCIUM 8.6 8.6 8.8 MAGNESIUM 0.82 0.83 0.86 PHOS 2.5 3.2 3.3 Recent Labs 10/31/23304 INR 1.1 PT 12.6* PTT 67* No results for input(s): CK, TROPONINT in the last 168 hours. Troponin: 571 (08:51, on 10/30) to 580 (11:37, on 10/30) to 544 (14:46, on 10/30) Telemetry: Mode Rate Rhythm Ectopy? 81 Sinus none Imaging/Studies: TTE (10/30): Interpretation Summary -The left ventricle is of [...] -There is no prior echocardiogram for comparison. CXR (10/29): IMPRESSION 1. Examination limited by low lung volumes. 2. Findings suggesting pulmonary vascular congestion with possible mild interstitial edema. 3. Known ascending aortic aneurysm, as seen on recent CT. 4. Nonspecific widening mediastinum. This can be secondary to magnification from portable technique and low lung volumes. Findings similar to measurer machine radiograph from CT 10/30/2023. Scheduled Medications: [AUG Hold] spironolactone 12.5 mg Oral Daily [AUG Hold] hydrALAZINE 10 mg Oral TID aspirin EC 81 mg Oral Daily clopidogreL 75 mg Oral Daily [AUG Hold] atorvastatin 80 mg Oral QPM [AUG Hold] sodium chloride 0.9 % (flush) 5 mL Intravenous BID [AUG Hold] heparin (porcine) 5,000 Units Subcutaneous Q8H ERIC PRN Medications: midazolam (PF), fentaNYL (PF), heparin (porcine), [AUG Hold] acetaminophen, [AUG Hold] sodium chloride 0.9 % (flush), [AUG Hold] lidocaine, [AUG Hold] nitroGLYcerin Assessment/Plan: Adin Santos is a 83 y.o. female PMH significant for hypertension and hyperlipidemia who presented to [facility] as a transfer from [facility] as a possible STEMI alert with acute onset chest pain who is s/p PCI of RCA (10/29). #ACS, concern for possible STEMI at the outside hospital #S/p PCI to proximal RCA (10/29) #Hyperlipidemia We started hydralazine TID yesterday evening. Around 1500 yesterday she was at a bp at 170s/70s. Asa result, the hydralazine brought her down to the 140s/70-80s. She mentioned that she had some chest pain midday yesterday, suggesting that the LCX/OM lesion seems to be the source of ischemic pain. However, the nitro abated it and she is feeling good this morning. Therefore, keep the plan as is and staged PCI today. - Staged PCI to LAD/OM lesion today - Give K+ - S/p PCI to proximal RCA - S/p load with 324 mg of aspirin and 180 mg of ticagrelor at the outside hospital - Continue aspirin 81 mg daily - Continue clopidogrel 75 mg daily - Continue high intensity statin therapy with atorvastatin 80 mg daily - Plan to start beta kristy tomorrow first dost given post cath, if HDS - D/c Trop trend (trop down trending) - Continue Strict I&O, Daily wts - Mg >1; K>4 - Cardiac risk stratification: A1c 5.5, TSH 3.35, LDL 145 - Cardiac rehab on d/c - D/c heparin post-cath - Start spironolactone - Give Mg (2g) #History of hypertension As mentioned above, continue the hydralazine to prevent her from going into the 170s systolic again. - Hold TOMMY-I/ARB pending course - Continue hydralazine for HTN and afterload reduction - Wean nitro drip (to plan for oral afterload) since pain is decreased - Plan to switch hydralazine to valsartan tomorrow (give the kidneys a break from contrast) - hold beta kristy due to lower HR #Routine Diet: NPO diet (Give Meds) DVT Prophylaxis: Subcutaneous heparin GI Prophylaxis: Not applicable Code Status: Attempt Cardiopulmonary Resuscitation - Inpatient Dispo: Pending clinical course Elmer Tamez, PGY1 Resident on Cardiology Service Cardiology S1 (Pager [phone]) Note written in conjunction with Claudio Perla [facility] Medical Student, MS3 Associated attestation - Rosa uHgo MD - 11/01/2023 2:24 PM EDT I saw and evaluated the patient with the housestaff and agree with the assessment and plan documented below. 83 y.o. female with PMH HTN HLD presenting as STEMI. She is s/p prox RCA PCI and there is a plan for PCI to OM/LCx 10/31. On asa/plavix High intensity statin Will start beta kristy if HR tolerates Rosa Hugo MD Advanced Heart Disease and Pulmonary Hypertension * Elmer Tamez MD - 10/31/2023 7:02 AM EDT Inpatient Cardiology Progress Note Patient Name: Adin Santos Date of Admission: 10/30/2023 ( Hospital Day 1 day ) Service: S1 ID: Adin Santos is a 83 y.o. female PMH significant for hypertension and hyperlipidemia who presented to [facility] as a transfer from [facility] as a possible STEMI alert with acute onset chest pain. Active Problems: Active Hospital Problems Diagnosis Unstable angina Resolved Hospital Problems No resolved problems to display. 24 hr events: - Cath'd yesterday with lesion in the proximal RCA (initially thought it was [employer] but they were ableto wire, balloon and stent) - Second lesion was in the LCX/ OM (obtuse marginal) with plans to address in staged PCI today Overnight: - Nitro gtt was started due to staying hypertensive while on hydralazine. (170-186/107-111) arund 1AM last night. - otherwise no acute events - feeling much better ROS: Denies CP, SOB, palpitations, PND, Orthopnea, dizziness/LH, LE swelling or pain, n/v, abd pain. Physical Exam: Last value Range last 24 hrs Temperature Temp: 36.5 ??C (97.7 ??F) Temp: [36.3 ??C (97.3 ??F)-36.7 ??C (98 ??F)] Heart Rate Heart Rate: 59 Heart Rate: [48-118] Blood Pressure BP: 143/70 BP: (106-186)/(53-111) Respiratory Rate Resp: 17 Resp: [12-27] SpO2 SpO2: 94 % SpO2: [87 %-98 %] Weight: Patient Vitals for the past 168 hrs: Weight 10/31/23 0530 73.9 kg (162 lb 14.7 oz) 10/30/232053 75.8 kg (167 lb 1.7 oz) Admit Weight: 75.8 kg Yesterday's net I/O's: Intake/Output Summary (Last 24 hours) at 10/31/2023 1214 Last data filed at 10/31/2023 1100 Gross per 24 hour Intake 390.5 ml Output 700 ml Net -309.5 ml Net I/O's since admission: Patient Vitals for the past 168 hrs: Weight 10/31/2330 73.9 kg (162 lb 14.7 oz) 10/30/232053 75.8 kg (167 lb 1.7 oz) Gen: pleasant female in NAD HEENT: MMM CV: bradycardia, sinus rhythm, no murmurs, gallops, or rubs Resp: CTAB Abd: nondistended, soft, NT, nabs throughout Ext: ++ dp/pt pulses, no lower extremity edema Neuro: alert and responsive. Without focal deficit Labs Recent Labs 10/31/23 03010/31/2313610/30/232204 WBC 11.5* 10.6* 9.0 HGB 12.6 13.0 13.3 HCT 37.1 37.9 39.1 PLATELET 206 204 211 Recent Labs 10/31/2313610/30/23 220 NA 140 142 K 3.9 3.9 CL 107 105 CO2 25 27 BUN 13 14 CREATININE 0.81 0.85 Recent Labs 10/30/23 2205 AST 36* ALT 17 ALKPHOS 54 BILITOT 0.5 Recent Labs 10/31/2313610/30/23 220 CALCIUM 8.6 8.8 MAGNESIUM 0.83 0.86 PHOS 3.2 3.3 Recent Labs 10/31/23 030 INR 1.1 PT 12.6* PTT 67* Troponins -- 329 at 01:37 this morning and 457 at 04:21 this morning No results for input(s): CK, TROPONINT in the last 168 hours. Telemetry: Mode Rate Rhythm Ectopy? 59 Sinus beatrice no - few runs NSVT Imaging/Studies: ECG (10/29): - Post cath ECG with sinus bradycardia with first-degree AV block, LAFB (L anterior fascicular block), and inferior T wave abnormality CXR (10/29): IMPRESSION 1. Examination limited by low lung volumes. 2. Findings suggesting pulmonary vascular congestion with possible mild interstitial edema. 3. Known ascending aortic aneurysm, as seen on recent CT. 4. Nonspecific widening mediastinum. This can be secondary to magnification from portable technique and low lung volumes. Findings similar to measurer machine radiograph from CT 10/30/2023. TTE (05/13): Interpretation Summary -The left ventricle is of [...] -There is no prior echocardiogram for comparison. Cardiac Catheterization: (10/29) Report pending Scheduled Medications: ondansetron 4 mg Intravenous Once aspirin EC 81 mg Oral Daily clopidogreL 75 mg Oral Daily atorvastatin 80 mg Oral QPM sodium chloride 0.9 % (flush) 5 mL Intravenous BID heparin (porcine) 5,000 Units Subcutaneous Q8H ERIC Infusing Medications: nitroGLYcerin 0 mcg/min (10/31/23 1009) PRN Medications: sodium chloride 0.9 % (flush), lidocaine, nitroGLYcerin Assessment/Plan: Adin Santos is a 83 y.o. female PMH significant for hypertension and hyperlipidemia who presented to [facility] as a transfer from [facility] as a possible STEMI alert with acute onset chest pain. #ACS, concern for possible STEMI at the outside hospital #Hyperlipidemia Is feeling a lot better today. We should continue the aspirin, clopidogrel, and statin. Since her pain was better managed with the nitro drip, it is likely that her hypertension through her hydralazine treatment was due to pain. Therefore, since she is pain free this morning we will begin to wean her off of the nitro gtt. Following her staged PCI today (for the LCX/OM), we can begin a beta kristy too. TTE was being completed this morning, result pending. Continue to trend trops till peak. - Status post PCI to proximal RCA, planning for staged intervention to address Lcx/OM lesion - Status post load with 324 mg of aspirin and 180 mg of ticagrelor at the outside hospital - Continue aspirin 81 mg daily - Continue clopidogrel 75 mg daily - Continue high intensity statin therapy with atorvastatin 80 mg daily - Plan to start beta kristy tomorrow first dost given post cath, if HDS - Trend Trop q6 hours - Nitroglycerin 0.4mg prn chest pain - EKG PRN - Strict I&O, Daily wts - Telemetry - Mg >1; K>4 - Cardiac risk stratification: A1c 5.5, TSH 3.35, LDL 145 - Cardiac rehab on d/c - D/c heparin post-cath #History of hypertension Nitro gtt was started due to staying hypertensive while on hydralazine (170-186/107-111) arund 1AM last night. As mentioned above, we will begin to wean off of nitro gtt since her pain is better managed now. - Hold TOMMY-I/ARB pending course - Continue hydralazine for HTN and afterload reduction - Wean nitro drip (to plan for oral afterload) since pain is decreased - Plan to switch hydralazine to valsartan tomorrow (give the kidneys a break from contrast) - hold beta kristy due to lower HR #Routine Diet: NPO diet (Give Meds) DVT Prophylaxis: Subcutaneous heparin GI Prophylaxis: Not applicable Code Status: Attempt Cardiopulmonary Resuscitation - Inpatient Dispo: Pending clinical course Elmer Tamez, PGY1 Resident on Cardiology Service Cardiology S1 (Pager [phone]) Note written in conjunction with Claudio Perla [facility] Medical Student, MS3 Associated attestation - Rosa Hugo MD - 10/31/2023 3:04 PM EDT I saw and evaluated the patient with the housestaff and agree with the assessment and plan documented below. 83 y.o. female with PMH HTN HLD presenting as STEMI. She is s/p prox RCA PCI and there is a plan for PCI to OM/LCx today. On asa/plavix High intensity statin Transition from nitro drip to oral afterload (hydral then ARB.) Will start beta kristy if HR tolerates Rosa Hugo MD Advanced Heart Disease and Pulmonary Hypertension * Qamar Gallardo MD - 10/31/2023 4:09 AM EDT Post Cath Note S: No chest pain, dyspnea, abdominal, groin, or new back pain. Dressing clean and dry, no signs of infection, no bleeding from right femoral/groin or right radial access site. O: Tc: Temp: 36.7 ??C (98 ??F) BP: BP: (!) 117/91 HR: Heart Rate: 65 R: Resp: 27 SpO2: SpO2: 94 %% on RA General: Lying in bed in NAD. Wrist: Right radial access site without hematoma or ecchymoses. No bleeding or bruits. Groin: Right femoral access site with small hematoma and surrounding ecchymoses. No bleeding or bruits. Ext: Warm, sensation intact, 2+ PT pulses. A/P: S/p cath with benign appearing right radial and right femoral/groin access site. Qamar Gallardo MD documented in this encounter H&P Notes * Qamar aGllardo MD - 10/30/2023 8:55 PM EDT Images from the original note were not included. Cardiology H&P Patient info: Name: Adin Santos : 1940 PCP: Rosie Mathews MD PCP phone number: [phone] Date of Admission: 10/30/2023 ( Hospital Day 0 days ) Attending:Rosa Cornejo MD ID: Adin Santos is a 83 y.o. female PMH significant for hypertension and hyperlipidemia who presented to [facility] as a transfer from [facility] as a possible STEMI alert with acute onset chest pain. The patient reports that her symptoms initially began on Tuesday when she was walking to [employer] and experienced bilateral arm heaviness while walking with no other symptoms. Then, this afternoon shereports developing bilateral achy shoulder pain and nonradiating substernal left-sided chest pressure that was 7/10 in severity after coming home from [facility]. The patient denies any associated fevers, chills, diaphoresis, lightheadedness/dizziness, syncope/presyncope, dyspnea (either at rest or on exertion), palpitations, orthopnea, or PND. The patient subsequently presented to [facility] as a walk-in for further evaluation. Upon presentation to outside hospital, the patient was afebrile, heart rate 71, hypertensive (BP 217/68), and was saturating 96% in room air. CBC within normal limits. CMP significant for creatinine of 1.2 and BUN of 19. Troponin was negative x 2. Initial ECG was concerning for possible STEMI with inferior TRU, although on repeat, her TRU resolved. Cardiology at [facility] was consulted for transfer; the patient was loaded with aspirin 324 mg and ticagrelor 180 mg, started on a heparin drip, and given nitroglycerin with improvement in chest pain. Upon arrival to [facility], the patient was taken directly to the [facility]. Two lesions were discovered: one in the prox RCA (felt to almost be a PARCEL [employer]IVER but they were able to wire, balloon, and stent) and a second that was not yet addressed in the Lcx/OM (plan for staged PCI). On post-cath assessment, the patient reported being chest pain-free and asymptomatic. Review of Systems: Negative except for the pertinent positives and negatives listed above. PMH: Hypertension Hyperlipidemia PSH: Reports to having 3 rotator cuff surgeries in the span of the last 10 years Home medications: Current Outpatient Medications Medication Instructions ASCORBIC ACID (VITAMIN C ORAL) CALCIUM ORAL CIS Free Text Med - vitamin b 125 complex CYANOCOBALAMIN, VITAMIN B-12, (VITAMIN B-12 ORAL) VALSARTAN/HYDROCHLOROTHIAZIDE (DIOVAN HCT ORAL) VITAMIN E ACETATE (VITAMIN E ORAL) Allergies: Allergies Allergen Reactions Hydrocodone CIS - Nausea/Vomiting Hydrocortisone CIS - swelling Oxycodone-Acetaminophen CIS - Nausea/Vomiting Penicillins Itching Family History: Reports mother mother at age 93 and had a history of stroke Reports father at age 85 and had a history of stroke Denies any other cardiovascular family history Social History: 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 Reports being a former smoker and previously smoked approximately one half PPD from age [age] Reports social EtOH use Denies drug use Objective: Vitals Last value Range last 24 hrs Temperature Temp: 36.3 ??C (97.3 ??F) Temp: [36.3 ??C (97.3 ??F)] Heart Rate Heart Rate: 53 Heart Rate: [53] Blood Pressure BP: 167/70 BP: (167)/(70) Art Line BP BP (Arterial Line): -- MAP (NBP): [95 mmHg] Respiratory Rate Resp: 18 Resp: [18] SpO2 SpO2: 93 % SpO2: [93 %] Oxygen Delivery Oxygen Therapy O2 Device: None (Room air) Reason for Oxygen: Patient currently on room air Intake/Output Summary (Last 24 hours) at 10/30/20232304 Last data filed at 10/30/20232016 Gross per 24 hour Intake -- Output 400 ml Net -400 ml Patient Vitals for the past 168 hrs: Weight 10/30/232053 75.8 kg (167 lb 1.7 oz) Admit wt: 75.8 kg Physical Exam: Gen: Resting in bed, not in acute distress HEENT: Anicteric, EOMI intact, JVP slightly elevated with HOB at 45 degrees CV: Normal S1, S2 RRR, no murmurs/rubs/gallops appreciated Resp: Normal work of breathing, faint crackles at bilateral bases Abd: Normal bowel sounds, soft, non-tender to palpation, no rebound or guarding Ext: No lower extremity edema Neuro: No focal deficits noted, CN II-XII grossly intact, moves all extremities spontaneously Skin: no rashes, lesions, or ulcerations noted Labs: Recent Labs 10/30/232204 WBC 9.0 HGB 13.3 HCT 39.1 PLATELET 211 MCV 98.7* Recent Labs 10/30/232204 NA 142 CL 105 CO2 27 K 3.9 MAGNESIUM 0.86 PHOS 3.3 CALCIUM 8.8 BUN 14 CREATININE 0.85 LFTs Recent Labs 10/30/232204 PROT 6.5 ALBUMIN 4.2 AST 36* ALT 17 ALKPHOS 54 BILITOT 0.5 Cardiac Enzymes Recent Labs 10/30/232204 PROBNP 375 Initial troponin 241 pending delta Endocrine Recent Labs 10/30/232204 TSH 3.35 Microbiology: No studies ECG: Post cath ECG with sinus bradycardia with first-degree AV block, LAFB, and inferior T wave abnormality Imaging: CXR 10/30/23 Examination limited by low lung volumes. Findings suggesting pulmonary vascular congestion with possible mild interstitial edema. Known ascending aortic aneurysm, as seen on recent CT. Nonspecific widening mediastinum. This can be secondary to magnification from portable technique and low lung volumes. Findings similar to measurer machine radiograph from CT 10/30/2023. Assessment & Plan: Adin Santos is a 83 y.o. female PMH significant for hypertension and hyperlipidemia who presented to [facility] as a transfer from [facility] as a possible STEMI alert with acute onset chest pain. The patient was initially transferred as a STEMI alert, given inferior TRU on ECG at the outside hospital. However, biomarkers remained negative prior to cath and her TRU resolved with resolution of chest pain after nitro and ASA. The patient is now status post cath with PCI to proximal RCA lesion with plan for staged intervention to address the Lcx/OM lesion tomorrow. Formal cath report forthcoming. Reassuringly, the patient remains chest pain-free and asymptomatic status post cath. Will continue to trend troponins and monitor serial ECGs while awaiting staged intervention. Remainder of ayo per below. #ACS, concern for possible STEMI at the outside hospital #Hyperlipidemia Status post PCI to proximal RCA, planning for staged intervention to address Lcx/OM lesion Status post load with 324 mg of aspirin and 180 mg of ticagrelor at the outside hospital Continue aspirin 81 mg daily Continue clopidogrel 75 mg daily Continue high intensity statin therapy with atorvastatin 80 mg daily Plan to start beta kristy tomorrow first dost given post cath Formal TTE Trend Trop q6 hours Nitroglycerin 0.4mg prn chest pain EKG PRN Strict I&O, Daily wts Telemetry Mg >1; K>4 Cardiac risk stratification: A1c 5.5, TSH 3.35, LDL 145 Cardiac rehab on d/c #History of hypertension Hold TOMMY-I/ARB pending course Start hydralazine for HTN and afterload reduction #Routine Diet: NPO diet (Give Meds) DVT Prophylaxis: Subcutaneous heparin GI Prophylaxis: Not applicable Code Status: Attempt Cardiopulmonary Resuscitation - Inpatient Dispo: Pending clinical course Qamar Gallardo MD Internal Medicine, PGY-2 Cardiology, M1-S1, #[id number] 10/30/23 11:05 PM Associated attestation - Rosa Hugo MD - 10/31/2023 9:04 AM EDT I saw and evaluated the patient with the housestaff team and agree with the assessment and plan documented below. Adin Santos is a 83 y.o. female with HTN HLD transferred with chest from [facility]. BP 217/68, HR [address] elevation. Trop 214-->457. Echo without WMA. C. 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 Additional circ lesion with plan for staged PCI today. Rosa Hugo MD Advanced Heart Disease and Pulmonary Hypertension documented in this encounter Miscellaneous Notes * Plan of Care - Moshe Pope RN - 11/03/2023 5:13 PM EDT Patient discharged to entrance 2, vitals as charted. No complaints of dizziness, chest pain, or SOB. AVS reviewed with patient and daughter, and all questions answered. Home in private vehicle with services. * Care Management Discharge - Bruce Waller RN - 11/03/2023 10:41 AM EDT CARE MANAGEMENT FINAL DISCHARGE NOTE Chart reviewed, care reviewed with primary team and at interdisciplinary rounds. Patient is medically ready for discharge to home. Needs for Transition of Care: per discharge instructions Plan for discharge is: Home w/ Services Outpatient Agency/Support Group Needs: Homecare agency Home Health Services: Registered Nurse Agency Referrals & Follow-up Care: Contact information for follow-up Home Health & Hospice, [place] [id number] [place] [id number] TANESHA BOYCE confirmed with [facility] that they will see the patient within 24-48 hours of discharge for start of care. Transportation: family or friend will provide Wheelchair van/Ambulance? No Functional status prior to admission: Assistive Equipment Home Environment: Others in the home: alone. Current Living Arrangements: home/apartment/condo. Accessibility Concerns:1st floor apartment [place]; handicapped accessible. Current Functional Ability: Assistive Equipment DME used at home: cane - straight, grab bar - tub/shower, grab bar - toilet, raised toilet seat DME Needed at Discharge: N/A Patient is insured through: Primary Insurance: [employer] MANAGED MEDICARE Payor: [employer] MEDICARE / Plan: [employer] MA[employer]ED MEDICARE PPO / Product Type: *No Product type* / Secondary Insurance: N/A Prescription Coverage: Yes This plan was formulated with input from patient and team. All are in agreement with plan. * Plan of Care - Lucretia Thurman RN - 11/03/2023 8:27 AM EDT OUTCOME EVALUATION NOTE: OUTCOME SUMMARY: VSS on RA, does have intermittent episodes of tachycardia in the 120s. NSR - ST on tele. SBA in room. Right groin with significant bruising (healing), no tenderness reported, soft to touch. L groin dressing with 25% strikethrough, soft to touch, no tenderness reported, mild bruising around site. R radial site open to air. Started on metoprolol succinate 12.5 mg po. Awaiting possible discharge today. Endorsed to [facility] [place]. [facility] GOAL OUTCOME EVALUATION: Problem: Chest Pain Goal: Resolution of Chest Pain Symptoms Outcome: Ongoing (Interventions Implemented as Appropriate) Problem: Fall Injury Risk Goal: Absence of Fall and Fall-Related Injury Outcome: Ongoing (Interventions Implemented as Appropriate) Problem: Dysrhythmia Goal: Normalized Cardiac Rhythm Outcome: Ongoing (Interventions Implemented as Appropriate) Problem: Adult Inpatient Plan of Care Goal: Plan of Care Review Outcome: Ongoing (Interventions Implemented as Appropriate) Goal: Patient-Specific Goal (Individualized) Outcome: Ongoing (Interventions Implemented as Appropriate) Goal: Absence of Hospital-Acquired Illness or Injury Outcome: Ongoing (Interventions Implemented as Appropriate) Goal: Optimal Comfort and Wellbeing Outcome: Ongoing (Interventions Implemented as Appropriate) Goal: Readiness for Transition of Care Outcome: Ongoing (Interventions Implemented as Appropriate) Problem: Arrhythmia/Dysrhythmia (Cardiac Catheterization) Goal: Stable Heart Rate and Rhythm Outcome: Ongoing (Interventions Implemented as Appropriate) Problem: Bleeding (Cardiac Catheterization) Goal: Absence of Bleeding Outcome: Ongoing (Interventions Implemented as Appropriate) Problem: Contrast-Induced Injury Risk (Cardiac Catheterization) Goal: Absence of Contrast-Induced Injury Outcome: Ongoing (Interventions Implemented as Appropriate) Problem: Embolism (Cardiac Catheterization) Goal: Absence of Embolism Signs and Symptoms Outcome: Ongoing (Interventions Implemented as Appropriate) Problem: Ongoing Anesthesia/Sedation Effects (Cardiac Catheterization) Goal: Anesthesia/Sedation Recovery Outcome: Ongoing (Interventions Implemented as Appropriate) Problem: Pain (Cardiac Catheterization) Goal: Acceptable Pain Control Outcome: Ongoing (Interventions Implemented as Appropriate) Problem: Vascular Access Protection (Cardiac Catheterization) Goal: Absence of Vascular Access Complication Outcome: Ongoing (Interventions Implemented as Appropriate) * Plan of Care - Mary Sweeney RN - 11/02/2023 3:40 PM EDT OUTCOME EVALUATION NOTE: OUTCOME SUMMARY: Uneventful shift. Patient A&Ox4. SNR/ST with first degree block on tele, HR ranging from 70's-150's; see scanned docs. O2 sat WDL, satting from 95% and above on RA. Pt remained afebrile throughout shift. Respiratory panel sent and was negative. UA sent, came back positive, started IV abx. Pt has a BM. Pt went for a walk this afternoon and ambulated throughout the shift in the room. Electrolytes replaced, see MAR. laboratory geneticist sites remained C/D/I with baseline ecchymosis unchanged. Pt complained of back pain, lidocaine patch given. Right IV infiltrated during infusion, patient is marked with sharpie, IV removed. See flowsheet for I+O's and safety rounding. Patient is able to make needs known and call capps within reach. PLAN MOVING FORWARD: Monitor Tele, control BP, monitor dental laboratory supervisor sites, D/C Planning INDIVIDUALIZED FALL PREVENTION INTERVENTIONS: Patient-specific fall risk factors per assessment: [current deficits]: Unfamiliar surroundings, IV lines, EKG Wires, Generalized Weakness Assistance [level of assistance required for transfers and ambulation]: SBA Supervision [direct monitoring required during toileting and ADLs]: SBA Surveillance [continuous indirect monitoring]: Continuous Telemetry, Pulse Oxygen Probe Patient-specific fall prevention interventions for sensory deficits provided, if applicable: Purposeful Rounding, Hourly Rounding, Non-skid shoes or socks when OOB, Use of Assistance Devices, Call Capps Within Reach, Room Near Nurses Station, Door Open, Light Adjusted for Specific Tasks, Person Items Within Reach, Bed in Lowest and Locked Position CARE PLAN GOAL OUTCOME EVALUATION: Problem: Chest Pain Goal: Resolution of Chest Pain Symptoms Outcome: Ongoing (Interventions Implemented as Appropriate) Problem: Fall Injury Risk Goal: Absence of Fall and Fall-Related Injury Outcome: Ongoing (Interventions Implemented as Appropriate) Problem: Dysrhythmia Goal: Normalized Cardiac Rhythm Outcome: Ongoing (Interventions Implemented as Appropriate) Problem: Adult Inpatient Plan of Care Goal: Plan of Care Review Outcome: Ongoing (Interventions Implemented as Appropriate) Goal: Patient-Specific Goal (Individualized) Outcome: Ongoing (Interventions Implemented as Appropriate) Goal: Absence of Hospital-Acquired Illness or Injury Outcome: Ongoing (Interventions Implemented as Appropriate) Goal: Optimal Comfort and Wellbeing Outcome: Ongoing (Interventions Implemented as Appropriate) Goal: Readiness for Transition of Care Outcome: Ongoing (Interventions Implemented as Appropriate) * Consult Note - Nellie Rayo RN - 11/02/2023 11:36 AM EDT Adin Santos was seen today by Cardiac Rehabilitation for: STEMI Activity evaluation - Patient is currently on precautions to rule out COVID-19. I did not ambulate with her at this time outside of her room. Educational packet regarding CAD, cardiac risk factors, and managing angina given to the patient. Heart diagram reviewed. Reviewed managing angina /use of sl nitroglycerin. Mediterranean diet guidelines briefly reviewed. Given parameters for home exercise. Patient tells me that she stays active in her apartment complex. She enjoys doing light housework, painting, and walking outside with her neighbors. She tells me a few years ago, she participated in an exercise class a few days/week, but hasn't done this recently. Participation in an outpatient cardiac rehabilitation program at [facility] was discussed. Patient agrees to a referral to this program. The referral will be sent at discharge and the patient should be contacted by the Program within 1- 2 weeks from discharge. * Plan of Care - Mary Sweeney RN - 11/01/2023 7:34 PM EDT OUTCOME EVALUATION NOTE: OUTCOME SUMMARY: Uneventful shift. Patient A&Ox4. SB/ST on tele, HR ranging from 40's-150's; see scanned docs. O2 sat WDL, satting from 95% and above on RA. PT went to dental laboratory supervisor today. Left fem site oozed throughout shift, pressure held and dressing replaced. Dressing C/D/I when hand off to night nurse. Pt continued to trend up, in BP, IV hydralazine given. Skin tear seen on right hand, cleaned and dressed. See flowsheet for I+O's and safety rounding. Patient is able to make needs known and call capps within reach. PLAN MOVING FORWARD: Monitor Tele, control BP, monitor dental laboratory supervisor sites, D/C Planning INDIVIDUALIZED FALL PREVENTION INTERVENTIONS: Patient-specific fall risk factors per assessment: [current deficits]: Unfamiliar surroundings, IV lines, EKG Wires, Generalized Weakness Assistance [level of assistance required for transfers and ambulation]: SBA Supervision [direct monitoring required during toileting and ADLs]: SBA Surveillance [continuous indirect monitoring]: Continuous Telemetry, Pulse Oxygen Probe Patient-specific fall prevention interventions for sensory deficits provided, if applicable: Purposeful Rounding, Hourly Rounding, Non-skid shoes or socks when OOB, Use of Assistance Devices, Call Capps Within Reach, Room Near Nurses Station, Door Open, Light Adjusted for Specific Tasks, Person Items Within Reach, Bed in Lowest and Locked Position CARE PLAN GOAL OUTCOME EVALUATION: Problem: Chest Pain Goal: Resolution of Chest Pain Symptoms Outcome: Ongoing (Interventions Implemented as Appropriate) Problem: Fall Injury Risk Goal: Absence of Fall and Fall-Related Injury Outcome: Ongoing (Interventions Implemented as Appropriate) Problem: Dysrhythmia Goal: Normalized Cardiac Rhythm Outcome: Ongoing (Interventions Implemented as Appropriate) Problem: Adult Inpatient Plan of Care Goal: Plan of Care Review Outcome: Ongoing (Interventions Implemented as Appropriate) Goal: Patient-Specific Goal (Individualized) Outcome: Ongoing (Interventions Implemented as Appropriate) Goal: Absence of Hospital-Acquired Illness or Injury Outcome: Ongoing (Interventions Implemented as Appropriate) Goal: Optimal Comfort and Wellbeing Outcome: Ongoing (Interventions Implemented as Appropriate) Goal: Readiness for Transition of Care Outcome: Ongoing (Interventions Implemented as Appropriate) * Initial Assessments - Bruce Waller RN - 11/01/2023 1:59 PM EDT Office of Care Management Initial Assessment Bruce Waller RN reviewed record and discussed patient with Care Team. Source of Information: Team, bedside nurse, medical record, and Patient, Chart Review Introduced self/reviewed role; services accepted. Admitted From: Transfer from another hospital Location: [facility] Reason for Hospitalization: chest pain Covid Vaccination Status: 1st, 2nd & booster Past medical History: No past medical history on file. Hospitalizations Within the Past 30 Days: no previous admission in last 30 days Current Decision-Making Capacity: Self If AD's have not been completed the following surrogate would be surrogate decision maker per [place] surrogate decision making law. (Only good for 180 days) Any patient receiving care in [place] must abide by [place] law. The hierarchy for surrogate decision making is: (a) Patient???s spouse or civil union partner unless there is a divorce proceeding, separation agreement, or restraining order limiting that person???s relationship with the patient. (b) Any adult son or daughter of the patient. (c) Either parent of the patient. (d) Any adult brother or sister of the patient. (e) Any adult grandchild of the patient. (f) Any grandparent of the patient. (g) Any adult aunt, uncle, niece, or nephew of the patient. (h) A close friend of the patient. (i) The agent with financial power of family law attorney or a conservator appointed in accordance with RSA 464-A. (j) The guardian of the patient???s estate. Advance Care Planning: Attempt Cardiopulmonary Resuscitation - Inpatient <no information> -Advanced Directive: No, declines (daughter Iris is SDM) Current Coping/Education/Information Needs: pending hospital course Current Functional Ability: Assistive Equipment Functional Status Prior to Admission: Assistive Equipment Prior ADLs & IADLs: Independent with all ADLs & IADLs Home Environment: Others in the home: alone. Current Living Arrangements: home/apartment/condo. Accessibility Concerns:1st floor apartment [place]; handicapped accessible. In the last 12 months, was there a time when you were not able to pay the mortgage or rent on time?: No In the last 12 months, how many places have you lived?: 1 In the last 12 months, was there a time when you did not have a steady place to sleep or slept in [facility] ([facility] now)?: No In the past 12 months has the electric, gas, oil, or water company threatened to shut off services in your home?: No Within the past 12 months, you worried that your food would run out before you got the money to buymore.: Never true Within the past 12 months, the food you bought just didn't last and you didn't have money to get more.: Never true Resource / Environmental Concerns: Resource/Environmental Concerns: none In the past 12 months, has lack of transportation kept you from medical appointments or from getting medications?: No In the past 12 months, has lack of transportation kept you from meetings, work, or from getting things needed for daily living?: No Current DME: cane - straight, grab bar - tub/shower, grab bar - toilet, raised toilet seat Home Address confirmed as: [address] [place] [id number] Social & Family Supports: All names listed below confirmed with patient as current and correct Extended Emergency Contact Information Primary Emergency Contact: Iris Downing Address: [address] [place], [place] [id number] [place] [address] Mobile Relation: Child Secondary Emergency Contact: Karen More Address: [address] Mobile Relation: Child Current Care Provided by: self Provides Primary Care For: no one Caregiver if needed: child(emmanuel), adult Quality of Family relationships: involved, supportive Community Resources being provided currently: other (see comments) (receives [facility] services at home (1xweekly)) Behavioral Health History: denies Substance Use/Abuse confirmed: Social History Tobacco Use Smoking Status Former Smokeless Tobacco Never In the past year have you used an illegal drug or used a prescription medication for non-medical reasons?: No 0 No problems reported 1-2 Low level 3-5 Moderate level 6-8 Substantial level 9- 10 Severe level In the past year have you had 4 or more drinks a day containing alcohol?: No 0 to 7 points: Low risk 8 to 15 points: Medium risk 16 to 19 points: High risk 20 to 40 points: Addiction likely Other Pertinent/Service Specific Information: N/A Health/Prescription Coverage: Primary Insurance: [employer]ARE Payor: [employer]ARE / Plan: [employer] MED[employer]ARE PPO / Product Type: *No Product type* / Secondary Insurance: N/A Prescription Coverage: Yes Preferred Pharmacy: [id number] - [place], [place] - [address] [facility] [address] [facility] [address] Status: Patient is a : No Primary Care Provider listed: Masood Pierson MD [phone] Patient/Caregiver Goals of Treatment: home when MR Potential Needs for Transition of Care: home health care Agency Referrals: Not Applicable I have met with the patient to: discuss discharge planning needs. provide the [facility], Office of Care Management letter from the [employer] pertaining to rehab referrals. provide a letter describing our affiliations within the [facility] and educate about their right to choose where referrals are sent. provide a list of Home Health Agencies / Durable Medical Equipment vendors which serve their preferred geographic area. provided patient with [facility] Star Quality Rating handout. They have requested referrals to: [facility] [address] [place] [address] Note routed to a Legal Transcriber who will communicate referrals to facilities and provide any required information. Transportation: no concerns Transportation Anticipated: family or friend will provide Concerns to be Addressed: denies needs/concerns at this time Assessment: Patient is admitted to Cardiology S1 service for Unstable Angina Plan: d/c plan pending clinical course, but anticipating d/c home w/ services when MR. A member of the Care Management team will continue to monitor progress, follow for continuity of care and assist with transition of care planning. * Plan of Care - Mary Sweeney RN - 10/31/2023 5:40 PM EDT OUTCOME EVALUATION NOTE: OUTCOME SUMMARY: Uneventful shift. Patient A&Ox4. Nitro titrated to off. AM echo completed. One complaint of CP,EKG obtained, team aware and at bedside, CP resolved on its own. SB/ST on tele, HR ranging from 40's-110's; see scanned docs. O2 sat WDL, satting from 95% and above on RA. Trops trended and peaked, see results. PO hydralazine added for BP control. laboratory geneticist sites remain C/D/I, ecchymosis unchanged th roughout shift. See flowsheet for I+O's and safety rounding. Patient is able to make needs known and call capps within reach. PLAN MOVING FORWARD: Monitor Tele, control CP and BP, NPO at MD for cath, monitor dental laboratory supervisor sites, D/C Planning INDIVIDUALIZED FALL PREVENTION INTERVENTIONS: Patient-specific fall risk factors per assessment: [current deficits]: Unfamiliar surroundings, IV lines, EKG Wires, Generalized Weakness Assistance [level of assistance required for transfers and ambulation]: SBA Supervision [direct monitoring required during toileting and ADLs]: SBA Surveillance [continuous indirect monitoring]: Continuous Telemetry, Pulse Oxygen Probe Patient-specific fall prevention interventions for sensory deficits provided, if applicable: Purposeful Rounding, Hourly Rounding, Non-skid shoes or socks when OOB, Use of Assistance Devices, Call Capps Within Reach, Room Near Nurses Station, Door Open, Light Adjusted for Specific Tasks, Person Items Within Reach, Bed in Lowest and Locked Position CARE PLAN GOAL OUTCOME EVALUATION: Problem: Chest Pain Goal: Resolution of Chest Pain Symptoms Outcome: Ongoing (Interventions Implemented as Appropriate) Problem: Fall Injury Risk Goal: Absence of Fall and Fall-Related Injury Outcome: Ongoing (Interventions Implemented as Appropriate) Problem: Dysrhythmia Goal: Normalized Cardiac Rhythm Outcome: Ongoing (Interventions Implemented as Appropriate) Problem: Adult Inpatient Plan of Care Goal: Plan of Care Review Outcome: Ongoing (Interventions Implemented as Appropriate) Goal: Patient-Specific Goal (Individualized) Outcome: Ongoing (Interventions Implemented as Appropriate) Goal: Absence of Hospital-Acquired Illness or Injury Outcome: Ongoing (Interventions Implemented as Appropriate) Goal: Optimal Comfort and Wellbeing Outcome: Ongoing (Interventions Implemented as Appropriate) Goal: Readiness for Transition of Care Outcome: Ongoing (Interventions Implemented as Appropriate) documented in this encounter Plan of Treatment Upcoming Encounters Date Type Department Care Team (Late st Contact Info) Description 03/29/2024 11:20 AM EDT Office Visit Cardiology at [address] [place] [address] Izaiah Meyer MD [facility] [place] [address] Scheduled Referrals Name Type Priority Associated Diagnoses Orde r Schedule Referral to Home Health Outpatient Referral Routine Unstable angina Ordered: 11/03/2023 Referral to Cardiac Rehab Outpatient Referral Routine 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 Ordered: 11/03/2023 documented as of this encounter Procedures Procedure Name Priority Date/Time Associated Diagnosis Comments HEMOGRAM Routine 11/03/2023 3:46 AM EDT DIFFERENTIAL, AUTOMATED Routine 11/03/19 3:46 AM EDT CBC (WITH DIFF) Routine 11/03/2023 3:46 AM EDT PHOSPHORUS Routine 11/03/2023 3:46 AM EDT MAGNESIUM Routine 11/03/2023 3:46 AM EDT BASIC METABOLIC PANEL Routine 11/03/2023 3:46 AM EDT EKG 12-LEAD Routine 11/02/2023 12:44 PM EDT Tachycardia URINALYSIS MICROSCOPIC EXAM Routine 11/02/2023 11:40 AM EDT URINALYSIS WITH REFLEX CULTURE Routine 11/02/2023 11:40 AM EDT RESPIRATORY PANEL PCR Routine 11/02/2023 10:15 AM EDT XR CHEST ONE VIEW STAT 11/02/2023 2:5 1 AM EDT HEMOGRAM Routine 11/02/2023 12:35 AM EDT DIFFERENTIAL, AUTOMATED Routine 11/02/19 12:35 AM EDT BLOOD CULTURE STAT 11/02/2023 12:35 AM EDT CBC (WITH DIFF) Routine 11/02/2023 12:35 AM EDT PHOSPHORUS Routine 11/02/2023 12:35 AM EDT MAGNESIUM Routine 11/02/2023 12:35 AM EDT BASIC METABOLIC PANEL Routine 11/02/2023 12:35 AM EDT BLOOD CULTURE STAT 11/02/2023 12:15 AM EDT EKG 12-LEAD STAT 11/01/2023 10: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 HEMOGRAM STAT 11/01/2023 10:06 PM EDT POCT GLUCOSE Routine 11/01/2023 5:59 PM EDT POCT GLUCOSE Routine 11/01/2023 5:35 PM EDT EKG 12-LEAD Routine 11/01/2023 3: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 CARDIAC CATHETERIZATION Routine 11/01/19 3:10 PM EDT POCT GLUCOSE Routine 11/01/2023 7:06 AM EDT HEMOGRAM Routine 11/01/2023 3:09 AM EDT DIFFERENTIAL, AUTOMATED Routine 11/01/19 3:09 AM EDT CBC (WITH DIFF) Routine 11/01/2023 3:09 AM EDT PHOSPHORUS Routine 11/01/2023 3:09 AM EDT MAGNESIUM Routine 11/01/2023 3:09 AM EDT BASIC METABOLIC PANEL Routine 11/01/2023 3:09 AM EDT HC VENIPUNCTURE [...] CARDIAC CATHETERIZATION Routine 10/31/19 8:10 AM EDT HC TROPONIN T STAT 10/31/2023 4:21 AM EDT HEMOGRAM STAT 10/31/2023 3:05 AM EDT DIFFERENTIAL, AUTOMATED STAT 10/31/19 3:05 AM EDT HC PARTIAL THROMBOPLASTIN TIME Routine 10/31/2023 3:05 AM EDT PROTHROMBIN TIME Routine 10/31/2023 3:05 AM EDT CBC (WITH DIFF) STAT 10/31/2023 3:05 AM EDT HC TROPONIN T STAT 10/31/2023 1:37 AM EDT HEMOGRAM Routine 10/31/2023 1:37 AM EDT DIFFERENTIAL, AUTOMATED Routine 10/31/19 1:37 AM EDT CBC (WITH DIFF) Routine 10/31/2023 1:37 AM EDT PHOSPHORUS Routine 10/31/2023 1:37 AM EDT MAGNESIUM Routine 10/31/2023 1:37 AM EDT BASIC METABOLIC PANEL Routine 10/31/2023 1:37 AM EDT EKG 12-LEAD STAT 10/31/2023 1: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 EKG 12-LEAD Routine 10/30/2023 10: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 XR CHEST ONE VIEW STAT 10/30/2023 10: 10 PM EDT HC TROPONIN T STAT 10/30/2023 10:05 PM EDT TSH CASCADE STAT 10/30/2023 10:05 PM EDT HEMOGRAM STAT 10/30/2023 10:05 PM EDT DIFFERENTIAL, AUTOMATED STAT 10/30/19 10:05 PM EDT GREEN TUBE HOLD STAT 10/30/2023 10:05 PM EDT CBC (WITH DIFF) STAT 10/30/2023 10:05 PM EDT PHOSPHORUS STAT 10/30/2023 10:05 PM EDT PRO-BRAIN NATRIURETIC PEPTIDE STAT 10/30/2023 10:05 PM EDT MAGNESIUM STAT 10/30/2023 10:05 PM EDT HEMOGLOBIN A1C STAT 10/30/2023 10:05 PM EDT LIPID PANEL (REFLEX DIRECT LDL) STAT 10/30/2023 10:05 PM EDT COMPREHENSIVE METABOLIC PANEL STAT 10/30/2023 10:05 PM EDT EKG 12-LEAD STAT 10/30/2023 8: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 documented in this encounter Results * (ABNORMAL) Differential, Automated (11/03/2023 3:46 AM EDT) Neutrophil % 63.3 % [facility] Neutrophil Absolute 5.28 1.70 - 6.10 x10(3)/mc L [facility] Lymph % 15.2 % [facility] Lymphocytes Abs 1.3 0.9 - 3.2 x10(3)/ L [facility] Monocyte % 16.9 % [facility] Monocyte Abs 1.4(H) 0.3 - 0.9 x10(3)/ L [facility] Eos % 3.7 % [facility] Eosinophils Abs 0.3 0.0 - 0.4 x10(3)/[facility] Basophil % 0.5 % [facility] Baso Absolute 0.0 0.0 - 0.1 x10(3)/ L [facility] Immature Gran % 0.40 % [facility] Comment: Immature granulocytes(IG's)percentage and absolute count will include metamyelocytes, myelocytes, and promyelocytes. Blood smears from CBCs yielding IG's will be scanned manually for concordance. If this scan disagrees with the automated IG or if promyelocytes are noted, a manual differential will be performed. Immature Gran Absolute 0.03 0.00 - 0.04 x10(3)/mc L [facility] Blood 11/03/2023 3:46 AM EDT 11/03/2023 4:11 AM EDT Narrative Resulting Agency Comment Spec In Lab Qamar Gallardo MD HEMATOLOGY ORDERABLE S [facility] [address] * (ABNORMAL) Hemogram (11/03/2023 3:46 AM EDT) White Blood Cell 8.3 4.0 - 9.5 x10(3)/mc L [facility] Red Blood Cell 3.77(L) 4.00 - 5.21 x10(6)/mc L [facility] Hemoglobin 13.1 11.7 - 15.5 g/dL [facility] Hematocrit 38.0 35.7 - 45.8 % [facility] Mean Cell Volume 100.8(H) 82.6 - 94.4 fL [facility] Mean Cell Hemoglobin 34.7(H) 27.1 - 32.0 pg [facility] Mean Cell Hemoglobin Concentration 34.5 31.7 - 35.0 g/dL [facility] Platelet 181 145 - 357 x10(3)/[facility] RDW Standard Deviation 54.7(H) 37.0 - 46.0 [facility] RDW coefficient of variation 14.6(H) 11.5 - 14.1 % [facility] Mean Platelet Volume 11.2 7.6 - 12.9 [facility] NRBC% auto 0.0 % [facility] NRBC Absolute 0.000 0.000 - 0.000 x10(3)/ L [facility] Blood 11/03/2023 3:46 AM EDT 11/03/2023 4:11 AM EDT Narrative Resulting Agency Comment Spec In Lab Qamar Gallardo MD HEMATOLOGY ORDERABLE S [facility] [address] * Phosphorus (11/03/2023 3:46 AM EDT) Phosphorus 3.2 2.5 - 4.5 mg/dL [facility] Comment:result rechecked-KS Blood 11/03/2023 3:46 AM EDT 11/03/2023 4:11 AM EDT Narrative Resulting Agency Comment Spec In Lab Rosa Cornejo MD CHEMISTRY ORDERABLE S [facility] [place] [address] * Magnesium (11/03/2023 3:46 AM EDT) Magnesium 0.90 0.69 - 1.07 mmol/L [facility] Blood 11/03/2023 3:46 AM EDT 11/03/2023 4:11 AM EDT Narrative Resulting Agency Comment Spec In Lab Rosa Cornejo MD CHEMISTRY ORDERABLE S Performing Organization Address City/[facility]/ZIP Co de Phone Number [facility] [address] * (ABNORMAL) Basic Metabolic Panel (non-fasting) (11/03/2023 3:46 AM EDT) Glucose 105 65 - 199 mg/dL [facility] Comment:Diabetes: >=200 mg/d L plus symptoms Blood Urea Nitrogen 13 8 - 18 mg/dL [facility] Creatinine 0.83 0.70 - 1.20 mg/dL [facility] Sodium 139 135 - 145 mmol/L [facility] Potassium 4.0 3.5 - 5.0 mmol/L [facility] Comment: Please note: ??Patients with WBC >100,000 may have falsely elevated Potassium levels. ??For accurate Potassium quantification in these patients send serum separator tube (gold top) for subsequent determinations. ??Contact the Clinical Chemistry Laboratory if there are any questions. Chloride 108(H) 98 - 107 mmol/L [facility] Carbon Dioxide 19(L) 22 - 31 mmol/L [facility] Anion Gap 12 5 - 15 mmol/L [facility] Calcium 8.2(L) 8.5 - 10.5 mg/dL [facility] Est Glomerular Filtration Rate 69 >=60 mL/min/1. 73 m?? [facility] Comment: This patient's estimated GFR was [...] Lab Rosa Cornejo MD CHEMISTRY ORDERABLE S [facility] [place] [id number] * EKG 12 Lead (11/02/2023 12:44 PM EDT) Ventricular rate 83 BPM MUSE SYSTEM Atrial Rate 83 BPM MUSE SYSTEM P-R Interval 216 ms MUSE SYSTEM QRS Duration 90 ms MUSE SYSTEM Q-T Interval 384 ms MUSE SYSTEM QTC Calculated (Bezet) 451 ms MUSE SYSTEM Calculated P Mckenna 92 degrees MUSE SYSTEM Calculated R Mckenna -51 degrees MUSE SYSTEM Calculated T Mckenna -33 degrees MUSE SYSTEM INTERPRETATION Sinus rhythm with 1st degree A-V block with Premature atrial complexes Left axis deviation Moderate voltage criteria for LVH, may be normal variant ( R in aVL , [place] product ) Anterolatera l infarct (cited on or before 01-NOV-2023) Abnormal ECG When compared with ECG of 01-NOV-2023 22:10, Premature atrial complexes are now Present MS interval has increased Vent. rate has decreased BY ??56 BPM Confirmed by MD Kevin, Esteban ([id number]) on 11/02/2023 1:32:10 PM MUSE SYSTEM 11/02/2023 12:4 4 PM EDT 11/02/2023 1:32 PM EDT Rosa Hugo MD ECG ORDERABLES MUSE SYSTEM * (ABNORMAL) Urinalysis Microscopic Exam (11/02/2023 11:40 AM EDT) RBC, Urine <1 0 - 4 /HPF [facility] Comment: Interpret results with caution, microscopic results are from suboptimal specimen volume WBC, Urine 16(H) 0 - 5 /HPF [facility] Comment: Interpret results with caution, microscopic results are from suboptimal specimen volume Bacteria, Urine Many(A) None /HPF [facility] Squamous Epithelial Cells Raw Data, Urine 10(H) <=4 /HPF [facility] Hyaline Casts, Urine 2 0 - 2 /LPF [facility] Comment: Interpret results with caution, microscopic results are from suboptimal specimen volume Clean Catch Urine 11/02/2023 11:40 AM EDT 11/02/2023 12:05 PM EDT Narrative Resulting Agency Comment Spec In Lab Elmre Tamez MD URINE ORDERABLES Performing Organization Address City/[facility] Co de Phone Number [facility] [address] * (ABNORMAL) Urinalysis with reflex Culture (11/02/2023 11:40 AM EDT) Glucose, Urine Dipstick Negative Negative mg/dL [facility] Protein, Urine Dipstick 30(A) Negative mg/dL [facility] Bilirubin, Urine Dipstick Negative Negative mg/dL [facility] Comment: Clinical correlation required for positive Urine Bilirubin results as false positive may occur with some drugs and drug related products. If a false positive is suspected a serum total bilirubin should be considered if clinically indicated. Urobilinogen, Urine Dipstick Normal Normal mg/dL [facility] pH, Urn (dipstick) 5.5 5.0 - 8.0 [facility] Blood, Urine Dipstick Negative Negative mg/dL [facility] Ketone, Urine Dipstick Trace(A) Negative mg/dL [facility] Nitrite, Urine Dipstick Positive(A) Negative [facility] Leukocytes, Urine Dipstick Small(A) Negative [facility] Appearance, Urine Dipstick Cloudy(A) Clear [facility] Specific [place] Urine Automated >=1.030(A) 1.005 - 1.030 [facility] Color, Urine Dipstick Dark Yellow Yellow [facility] Reflex to Culture Yes [facility] Clean Catch Urine 11/02/2023 11:40 AM EDT 11/02/2023 12:04 PM EDT Narrative Resulting Agency Comment Spec In Lab Rosa Hugo MD URINE ORDERABLES Performing Organization Address City/State/[facility] Co de Phone Number [facility] [address] * Respiratory Panel PCR (11/02/2023 10:15 AM EDT) Respiratory Panel Source [employer] Swab [facility] Respiratory Panel PCR Negative Negative [facility] Comment: Respiratory Panels are performed on the [employer], using multiplexed PCR nucleic acid detection. ??Negative results do not preclude respiratory infection and should not be used as the sole basis for diagnosis, treatment or other management decisions. Adenovirus Not Detected Not Detected [facility] Coronavirus HKU1 Not Detected Not Detected [facility] Coronavirus NL63 Not Detected Not Detected [facility] Coronavirus 229E Not Detected Not Detected [facility] Coronavirus OC43 Not Detected Not Detected [facility] SARS-CoV-2 Not Detected Not Detected [facility] Comment: Testing for SARS-CoV-2 (Severe acute respiratory syndrome coronavirus 2) to aid in the diagnosis of COVID-19 is performed using the [employer] Respiratory Panel 2.1 ([employer]) as authorized by the FDA issued Emergency Use Authorization (EUA). This panel also tests for multiple other viral and bacterial pathogens. This assay is intended for In-vitro Diagnostic (IVD) use with nasopharyngeal swabs in viral transport media. The assay is performed based on the instructions for use and additional guidance provided by the FDA. Testing is performed in laboratories within the [facility], each of which is certified under the [...] fact sheets at the following FDA website: https://www.fda.gov/medical-devices/xnfjiplqqub-licwmkz-7310-beyna-53-utfafyoqc- use-a vxcyckmkuoqid-kqvddmm-xuejblb/kshen-zutetyurakx-ixyt Human Metapneumovirus Not Detected Not Detected [facility] Human Rhinovirus/Enterov irus Not Detected Not Detected [facility] Influenza A Not Detected Not Detected [facility] Influenza B Not Detected Not Detected [facility] Parainfluenza 1 Not Detected Not Detected [facility] Parainfluenza 2 Not Detected Not Detected [facility] Parainfluenza 3 Not Detected Not Detected [facility] Parainfluenza 4 Not Detected Not Detected [facility] Respiratory Syncytial Virus Not Detected Not Detected [facility] Chlamydophila pneumoniae Not Detected Not Detected [facility] Mycoplasma pneumoniae Not Detected Not Detected [facility] Nasopharyngeal Swab 11/02/19 10:15 AM EDT 11/02/2023 10:49 AM EDT Narrative Resulting Agency Comment Spec In Lab Rosa Hugo MD MICROBIOLOGY - GEN ERAL ORDERABLES [facility] [place] [address] * XR Chest One View (11/02/2023 2:51 AM EDT) WORKSTATION ID [id number] RAD Anatomical Region Laterality Modality Chest N/A [...] who have questions please contact the health child care team lead that requested your imaging first. ? Narrative 11/02/2023 4:56 AM EDT EXAMINATION: XR [...] patients who have questions please contactthe health child care team lead that requested your imaging first. Rosa Hugo MD IMG DX ORDERABLES * (ABNORMAL) Differential, Automated (11/02/2023 12:35 AM EDT) Neutrophil % 76.5 % [facility] Neutrophil Absolute 7.69(H) 1.70 - 6.10 x10(3)/mc L [facility] Lymph % 8.3 % [facility] Lymphocytes Abs 0.8(L) 0.9 - 3.2 x10(3)/mc L [facility] Monocyte % 12.9 % [facility] Monocyte Abs 1.3(H) 0.3 - 0.9 x10(3)/mc L [facility] Eos % 1.4 % [facility] Eosinophils Abs 0.1 0.0 - 0.4 x10(3)/mc L [facility] Basophil % 0.4 % [facility] Baso Absolute 0.0 0.0 - 0.1 x10(3)/mc L [facility] Immature Gran % 0.50 % [facility] Comment: Immature granulocytes(IG's)percentage and absolute count will include metamyelocytes, myelocytes, and promyelocytes. Blood smears from CBCs yielding IG's will be scanned manually for concordance. If this scan disagrees with the automated IG or if promyelocytes are noted, a manual differential will be performed. Immature Gran Absolute 0.05(H) 0.00 - 0.04 x10(3)/mc L [facility] Blood 11/02/2023 12:3 5 AM EDT 11/02/2023 12:43 AM EDT Narrative Resulting Agency Comment Spec In Lab Qamar Gallardo MD HEMATOLOGY ORDERABLE S [facility] [place] [address] * (ABNORMAL) Hemogram (11/02/2023 12:35 AM EDT) White Blood Cell 10.0(H) 4.0 - 9.5 x10(3)/mc L [facility] Red Blood Cell 4.06 4.00 - 5.21 x10(6)/mc L [facility] Hemoglobin 13.8 11.7 - 15.5 g/dL [facility] Hematocrit 39.8 35.7 - 45.8 % [facility] Mean Cell Volume 98.0(H) 82.6 - 94.4 fL [facility] Mean Cell Hemoglobin 34.0(H) 27.1 - 32.0 pg [facility] Mean Cell Hemoglobin Concentration 34.7 31.7 - 35.0 g/dL [facility] Platelet 198 145 - 357 x10(3)/mc L [facility] RDW Standard Deviation 52.1(H) 37.0 - 46.0 fL [facility] RDW coefficient of variation 14.3(H) 11.5 - 14.1 % [facility] Mean Platelet Volume 11.4 7.6 - 12.9 [facility] LABORATORY NRBC% auto 0.0 % [facility] NRBC Absolute 0.000 0.000 - 0.000 x10(3)/ L [facility] Blood 11/02/2023 12:3 5 AM EDT 11/02/2023 12:43 AM EDT Narrative Resulting Agency Comment Spec In Lab Qamar Gallardo MD HEMATOLOGY ORDERABLE S [facility] [place] [address] * (ABNORMAL) Phosphorus (11/02/2023 12:35 AM EDT) Phosphorus 1.6(L) 2.5 - 4.5 mg/dL [facility] Blood 11/02/2023 12:3 5 AM EDT 11/02/2023 12:43 AM EDT Narrative Resulting Agency Comment Spec In Lab Rosa Cornejo MD CHEMISTRY ORDERABLE S [facility] [place] [address] * Magnesium (11/02/2023 12:35 AM EDT) Pathologist [facility] Magnesium 0.87 0.69 - 1.07 mmol/L [facility] Blood 11/02/2023 12:3 5 AM EDT 11/02/2023 12:43 AM EDT Narrative Resulting Agency Comment Spec In Lab Rosa Cornejo MD CHEMISTRY ORDERABLE S Performing Organization Address City/[facility]/ZIP Co de Phone Number [facility] [place] [address] * Basic Metabolic Panel (non-fasting) (11/02/2023 12:35 AM EDT) Glucose 125 65 - 199 mg/dL [facility] Comment:Diabetes: >=200 mg/d L plus symptoms Blood Urea Nitrogen 9 8 - 18 mg/dL [facility] Creatinine 0.83 0.70 - 1.20 mg/dL [facility] Sodium 136 135 - 145 mmol/L [facility] Potassium 3.6 3.5 - 5.0 mmol/L [facility] Comment: Please note: ??Patients with WBC >100,000 may have falsely elevated Potassium levels. ??For accurate Potassium quantification in these patients send serum separator tube (gold top) for subsequent determinations. ??Contact the Clinical Chemistry Laboratory if there are any questions. Chloride 102 98 - 107 mmol/L [facility] Carbon Dioxide 25 22 - 31 mmol/L [facility] Anion Gap 9 5 - 15 mmol/L [facility] Calcium 9.0 8.5 - 10.5 mg/dL [facility] Est Glomerular Filtration Rate 69 >=60 mL/min/1. 73 m?? [facility] Comment: This patient's estimated GFR was [...] and symptoms in addition to eGFR. Blood 11/02/2023 12:3 5 AM EDT 11/02/2023 12:43 AM EDT Narrative Resulting Agency Comment Spec In Lab Rosa Cornejo MD CHEMISTRY ORDERABLE S [facility] [place] [address] * Blood culture (11/02/2023 12:35 AM EDT) Blood Culture No growth at 5 days. [facility] Blood 11/02/2023 12:3 5 AM EDT 11/02/2023 1:55 AM EDT Comment:#2 site ukn Narrative Resulting Agency Comment Spec In Lab Rosa Hugo MD MICROBIOLOGY - BLO OD ORDERABLES [facility] [place] [address] * Blood culture (11/02/2023 12:15 AM EDT) Blood Culture No growth at 5 days. [facility] Blood 11/02/2023 12:1 5 AM EDT 11/02/2023 1:54 AM EDT Comment:#1site unk Narrative Resulting Agency Comment Spec In Lab Rosa Hugo MD MICROBIOLOGY - BLO OD ORDERABLES Performing Organization Address City/[facility]/ZIP Co de Phone Number [facility] [place] [address] * EKG 12 Lead (11/01/2023 10:10 PM EDT) Ventricular rate 139 BPM MUSE SYSTEM Atrial Rate 139 BPM MUSE SYSTEM P-R Interval 168 ms MUSE SYSTEM QRS Duration 84 ms MUSE SYSTEM Q-T Interval 286 ms MUSE SYSTEM QTC Calculated (Bezet) 435 ms MUSE SYSTEM Calculated R Mckenna -59 degrees MUSE SYSTEM Calculated T Mckenna -27 degrees MUSE SYSTEM INTERPRETATION Mid-RP tachycardia, consider sinus tachycardia or SVT Left axis deviation Moderate voltage criteria for LVH, may be normal variant ( R in aVL , [place] product ) Inferior infarct (cited on or before 01-NOV-2023) Anterolateral infarct (cited on or before 01-NOV-2023) Abnormal ECG When compared with ECG of 01-NOV-2023 15:22, Vent. rate Although rate has increased Serial changes of Anterior infarct Present I personally reviewed the tracing and edited the fellows interpretation Confirmed by fellow MD Andrés, Enriqueta ([id number]) on 11/04/2023 7:57:50 AM Confirmed by MD Gerardo, Shameka ([id number]) on 11/04/2023 4:32:03 PM MUSE SYSTEM 11/01/2023 10:1 0 PM EDT 11/04/2023 4:32 PM EDT Rosa Cornejo MD ECG ORDERABLES Performing Organization Address City/[facility]/ZIP Co de Phone Number MUSE SYSTEM * (ABNORMAL) Hemogram (11/01/2023 10:06 PM EDT) White Blood Cell 10.4(H) 4.0 - 9.5 x10(3)/ L [facility] Red Blood Cell 4.11 4.00 - 5.21 x10(6)/ L [facility] Hemoglobin 14.0 11.7 - 15.5 g/dL [facility] Hematocrit 41.1 35.7 - 45.8 % [facility] Mean Cell Volume 100.0(H) 82.6 - 94.4 fL [facility] Mean Cell Hemoglobin 34.1(H) 27.1 - 32.0 pg [facility] Mean Cell Hemoglobin Concentration 34.1 31.7 - 35.0 g/dL [facility] Platelet 197 145 - 357 x10(3)/[facility] RDW Standard Deviation 54.0(H) 37.0 - 46.0 fL [facility] RDW coefficient of variation 14.6(H) 11.5 - 14.1 % [facility] Mean Platelet Volume 11.2 7.6 - 12.9 fL [facility] NRBC% auto 0.0 % [facility] NRBC Absolute 0.000 0.000 - 0.000 x10(3)/[facility] Blood 11/01/2023 10:0 6 PM EDT 11/01/2023 10:22 PM EDT Narrative Resulting Agency Comment Spec In Lab Rosa Hugo MD HEMATOLOGY ORDERAB LES [facility] [place] [address] * POCT Glucose (11/01/2023 5:59 PM EDT) Glucose, POC 104 65 - 199 mg/dL [facility] Comment: Supplemental ranges: <140 mg/dL before meals <180 mg/dL all other times of the day Blood 11/01/2023 5:59 PM EDT 11/01/2023 5:59 PM EDT Rosa Hugo MD POINT OF CARE TEST ORDERABLES [facility] [place] [address] * POCT Glucose (11/01/2023 5:35 PM EDT) Glucose, POC 85 65 - 199 mg/dL [facility] Comment: Supplemental ranges: <140 mg/dL before meals <180 mg/dL all other times of the day Blood 11/01/2023 5:35 PM EDT 11/01/2023 5:35 PM EDT Rosa Hugo MD POINT OF CARE TEST ORDERABLES Performing Organization Address City/[facility] Co de Phone Number [facility] [place] [address] * EKG 12 Lead (11/01/2023 3:22 PM EDT) Ventricular rate 59 BPM MUSE SYSTEM Atrial Rate 59 BPM MUSE SYSTEM P-R Interval 220 ms MUSE SYSTEM QRS Duration 94 ms MUSE SYSTEM Q-T Interval 428 ms MUSE SYSTEM QTC Calculated (Bezet) 423 ms MUSE SYSTEM Calculated P Mckenna 76 degrees MUSE SYSTEM Calculated R Mckenna -50 degrees MUSE SYSTEM Calculated T Mckenna -59 degrees MUSE SYSTEM INTERPRETATION Sinus bradycardia with sinus arrhythmia with 1st degree A-V block Left anterior fascicular block Moderate voltage criteria for LVH, may be normal variant ( R in aVL , Ifeanyi product ) Cannot rule out Inferior infarct (masked by fascicular block?) , age undetermined Possible Anterior infarct (cited on or before 01-NOV-2023) T wave abnormality, consider lateral ischemia Abnormal ECG When compared with ECG of 31-OCT-2023 13:07, QT has shortened Confirmed by MD Kevin, Esteban ([id number]) on 11/02/2023 1:32:01 PM MUSE SYSTEM 11/01/2023 3:22 PM EDT 11/02/2023 1:32 PM EDT Rosa Hugo MD ECG ORDERABLES MUSE SYSTEM * CARDIAC CATHETERIZATION (11/01/2023 3:10 PM EDT) Anatomical Region Laterality Modality Other Narrative 11/02/2023 4:57 PM EDT ?[facility] ? Cardiac Catheterization/Intervention Report ? Patient Name: Joleen, Adin Catherine. ? Procedure Date: 11/01/2023 ? A #: [id number] ? Primary Physician: Rosa Dewey I ? Case #: [id number] ? File Name: [id number] ? Catheterization Order Number: [id number] ? [facility] ?[facility] ? Final Report [place], [place] ? Patient Name: ? Adin oTwnsendjosue ?ID#: ?[id number] ? : ?1940 ? Procedure Date: ? November 01, 2023 ? Case #: ? [id number] ? Room: ? 2 ? Case Physician: [...] to Procedure: ? Aspirin, Angiotensin II Receptor Kristy and Statin. ? Indications for Diagnostic Cath: ?The priority of the diagnostic procedure was Urgent. The indication for ?the dental laboratory supervisor visit is ACS greater than 24 hrs. [...] ??A premounted ? 3.50 x 15 mm [place] (RADHA) was deployed with a maximum ? [...] ? A premounted 3.50 x 15 mm [place] (RADHA) was deployed ? with a maximum [...] dose administered prior to arrival in the dental laboratory supervisor. ?Recommended anti-platelet/anti-thrombotic regimen: ?Continue aspirin 81 mg daily for indefinitely. ?Continue clopidogrel 75 mg daily for 12 months then stop. ?These recommendations are made at the time of the intervention. Patient ?and provider preferences or a changing clinical situation may require ?modification of this regimen. Consult [facility] Interventional Cardiology for ?questions. ?The 1 year [...] Last Ammended: 12/12/2023 ??10:28 ? Procedure Note Otto, Rosa I, MD - 12/12/[address] [facility] Cardiac Catheterization/Intervention Report Patient Name: Adin Santos Procedure Date: 11/01/2023 A #: [id number] Primary Physician: Rosa Dewey I Case #: [id number] File Name: [id number] Catheterization Order Number: [id number] [facility] FinalReport [place], [place] Patient Name: Adin Santos ID#:[id number] :1940 Procedure Date: November 01, 2023 Case [...] was designated as ASA Class III. The CSHAclinical frailty scale is 4: Vulnerable. Diagnostic Tests: Prior Coronary Angiography: LV ejection fraction within 6 months is 65%. Electrocardiography: EKG was assessed by ECG. EKG was Abnormal. EKG showed other abnormality. Medications Prior to Procedure: Aspirin, Angiotensin II Receptor Kristy and Statin. Indications for Diagnostic Cath: The priority of the diagnostic procedure was Urgent. The indicationfor the dental laboratory supervisor visit is ACS greater than 24 hrs. [...] 14 atmospheres. Apremounted 3.50 x 15 mm [place] (RADHA) was deployed with amaximum inflation pressure [...] The lesion was predilated with a 3.00mm [id number] MM balloon with a maximum inflation pressure of 14atmospheres. A premounted 3.50 x 15 mm [place] (RADHA) wasdeployed with a maximum inflation pressure [...] dose administered prior to arrival in the dental laboratory supervisor. Recommended anti-platelet/anti-thrombotic regimen: Continue aspirin 81 mg daily for indefinitely. Continue clopidogrel 75 mg daily for 12 months then stop. These recommendations are made at the time of the intervention.Patient and provider preferences or a changing clinical situation mayrequire modification of this regimen. Consult [facility] Interventional Cardiologyfor questions. The 1 year bleeding [...] Cornejo MD CARDIAC CATH ORDERA BLES * POCT Glucose (11/01/2023 7:06 AM EDT) [facility] Glucose, POC 93 65 - 199 mg/dL [facility] Comment: Supplemental ranges: <140 mg/dL before meals <180 mg/dL all other times of the day Blood 11/01/2023 7:06 AM EDT 11/01/2023 7:06 AM EDT Jean Laboy MD POINT OF CARE TEST O RDERABLES [facility] [place] [address] * (ABNORMAL) Differential, Automated (11/01/2023 3:09 AM EDT) [facility] Neutrophil % 63.9 % [facility] Neutrophil Absolute 5.54 1.70 - 6.10 x10(3)/mc L [facility] Lymph % 20.0 % [facility] Lymphocytes Abs 1.7 0.9 - 3.2 x10(3)/mc L [facility] Monocyte % 11.9 % [facility] Monocyte Abs 1.0(H) 0.3 - 0.9 x10(3)/mc L [facility] Eos % 3.2 % [facility] Eosinophils Abs 0.3 0.0 - 0.4 x10(3)/mc L [facility] Basophil % 0.5 % [facility] Baso Absolute 0.0 0.0 - 0.1 x10(3)/mc L [facility] Immature Gran % 0.50 % [facility] Comment: Immature granulocytes(IG's)percentage and absolute count will include metamyelocytes, myelocytes, and promyelocytes. Blood smears from CBCs yielding IG's will be scanned manually for concordance. If this scan disagrees with the automated IG or if promyelocytes are noted, a manual differential will be performed. Immature Gran Absolute 0.04 0.00 - 0.04 x10(3)/ L [facility] Blood 11/01/2023 3:09 AM EDT 11/01/2023 3:29 AM EDT Narrative Resulting Agency Comment Spec In Lab Qamar Gallardo MD HEMATOLOGY ORDERABLE S Performing Organization Address City/State/[facility] Co de Phone Number [facility] [address] * (ABNORMAL) Hemogram (11/01/2023 3:09 AM EDT) White Blood Cell 8.7 4.0 - 9.5 x10(3)/ L [facility] Red Blood Cell 3.72(L) 4.00 - 5.21 x10(6)/mc L [facility] Hemoglobin 12.5 11.7 - 15.5 g/dL [facility] Hematocrit 36.8 35.7 - 45.8 % [facility] Mean Cell Volume 98.9(H) 82.6 - 94.4 fL [facility] Mean Cell Hemoglobin 33.6(H) 27.1 - 32.0 pg [facility] Mean Cell Hemoglobin Concentration 34.0 31.7 - 35.0 g/dL [facility] Platelet 184 145 - 357 x10(3)/ L [facility] RDW Standard Deviation 53.5(H) 37.0 - 46.0 fL [facility] RDW coefficient of variation 14.6(H) 11.5 - 14.1 % [facility] Mean Platelet Volume 11.3 7.6 - 12.9 fL [facility] NRBC% auto 0.0 % [facility] NRBC Absolute 0.000 0.000 - 0.000 x10(3)/mc L [facility] Blood 11/01/2023 3:09 AM EDT 11/01/2023 3:29 AM EDT Narrative Resulting Agency Comment Spec In Lab Qamar Gallardo MD HEMATOLOGY ORDERABLE S Performing Organization Address City/[facility]/ZIP Co de Phone Number [facility] [address] * Phosphorus (11/01/2023 3:09 AM EDT) Phosphorus 2.5 2.5 - 4.5 mg/dL [facility] Blood 11/01/2023 3:09 AM EDT 11/01/2023 3:29 AM EDT Narrative Resulting Agency Comment Spec In Lab Rosa Cornejo MD CHEMISTRY ORDERABLE S Performing Organization Address City/[facility]/ZIP Co de Phone Number [facility] [address] * Magnesium (11/01/2023 3:09 AM EDT) Magnesium 0.82 0.69 - 1.07 mmol/L [facility] Blood 11/01/2023 3:09 AM EDT 11/01/2023 3:29 AM EDT Narrative Resulting Agency Comment Spec In Lab Rosa Cornejo MD CHEMISTRY ORDERABLE S Performing Organization Address City/[facility]/ZIP Co de Phone Number [facility] [address] * (ABNORMAL) Basic Metabolic Panel (non-fasting) (11/01/2023 3:09 AM EDT) Glucose 100 65 - 199 mg/dL [facility] Comment:Diabetes: >=200 mg/d L plus symptoms Blood Urea Nitrogen 14 8 - 18 mg/dL [facility] Creatinine 0.83 0.70 - 1.20 mg/dL [facility] Sodium 137 135 - 145 mmol/L [facility] Potassium 3.4(L) 3.5 - 5.0 mmol/L [facility] Comment: Please note: ??Patients with WBC >100,000 may have falsely elevated Potassium levels. ??For accurate Potassium quantification in these patients send serum separator tube (gold top) for subsequent determinations. ??Contact the Clinical Chemistry Laboratory if there are any questions. Chloride 105 98 - 107 mmol/L [facility] Carbon Dioxide 24 22 - 31 mmol/L [facility] Anion Gap 8 5 - 15 mmol/L [facility] Calcium 8.6 8.5 - 10.5 mg/dL [facility] Est Glomerular Filtration Rate 69 >=60 mL/min/1. 73 m?? [facility] Comment: This patient's estimated GFR was [...] and symptoms in addition to eGFR. Blood 11/01/2023 3:09 AM EDT 11/01/2023 3:29 AM EDT Narrative Resulting Agency Comment Spec In Lab Rosa Cornejo MD CHEMISTRY ORDERABLE S [facility] [place] [address] * (ABNORMAL) Troponin (10/31/2023 2:46 PM EDT) Troponin-T, High Sensitivity 544(H) <=14 ng/L [facility] Comment: This patient's troponin T concentration [...] troponin value can be found in the [facility] Test Catalog Troponin - [facility] Test Catalog Reference: Fourth [place] Definition of Myocardial Infarction. Journal of the [place] [employer] 2018;72:9449-6100 Blood 10/31/2023 2:46 PM EDT 10/31/2023 2:55 PM EDT Narrative Resulting Agency Comment Spec In Lab Jean Laboy MD CHEMISTRY ORDERABLES [facility] [address] * EKG 12 Lead (10/31/2023 1:07 PM EDT) Ventricular rate 54 BPM MUSE SYSTEM Atrial Rate 54 BPM MUSE SYSTEM P-R Interval 218 ms MUSE SYSTEM QRS Duration 92 ms MUSE SYSTEM Q-T Interval 540 ms MUSE SYSTEM QTC Calculated (Bezet) 512 ms MUSE SYSTEM Calculated P Mckenna 85 degrees MUSE SYSTEM Calculated R Mckenna -44 degrees MUSE SYSTEM Calculated T Mckenna -69 degrees MUSE SYSTEM INTERPRETATION Sinus bradycardia with 1st degree A-V block Left axis deviation Moderate voltage criteria for LVH, may be normal variant ( R in aVL , Ifeanyi product ) T wave abnormality, consider inferolateral ischemia Prolonged QT Abnormal ECG When compared with ECG of 30-OCT-2023 20:21, Incomplete right bundle branch block is no longer Present Confirmed by MD LINDSAY DAVID ([id number]) on 10/31/2023 2:28:46 PM MUSE SYSTEM 10/31/2023 1:07 PM EDT 10/31/2023 2:28 PM EDT Rosa Cornejo MD ECG ORDERABLES MUSE SYSTEM * (ABNORMAL) Troponin (10/31/2023 11:37 AM EDT) Troponin-T, High Sensitivity 580(H) <=14 ng/L [facility] Comment: This patient's troponin T concentration [...] troponin value can be found in the [facility] Test Catalog Troponin - [facility] Test Catalog Reference: Fourth [place] Definition of Myocardial Infarction. Journal of the [place] [employer] 2018;72:0124-7618 Blood 10/31/2023 11:3 7 AM EDT 10/31/2023 11:50 AM EDT Narrative Resulting Agency Comment Spec In Lab Rosa Cornejo MD CHEMISTRY ORDERABLE S Performing Organization Address [facility]/State/ZIP Co de Phone Number [facility] [place] [address] * ECHO COMPLETE (10/31/2023 8:52 AM EDT) Anatomical Region Laterality Modality Cardiac Other 10/31/2023 7:57 AM EDT Narrative 10/31/2023 9:45 AM EDT [address] [place] [address] ? Echocardiogram Report Name: ADIN SANTOS ? Study Date: 10/31/2023 07:57 AMBP: 106/76 mmHg ? Patient Location: [id number] A : 1940 ? Height: 163 cm ? Account: [id number] Age: 83 yrs ? Weight: 76 kg Gender: Female ?BSA: 1.8 m2 Ordering Physician: ROSA DEWEY Referring Physician: OMAIRA GIRNO Performed By: HAFSA Carmichael Reason For Study: STEMI Interpreting Fellow: Raymond Warren. Exam Location: [facility]. Interpretation Summary -The left ventricle is of [...] is no prior echocardiogram for comparison. Procedure Complete-92807. Satisfactory quality. There is sinus bradycardia. Left [...] V1 VTI: 23.6 cm MV E max ari: 75.9 cm/sec MV A max ari: 94.6 cm/sec MV E/A: 0.80 MV dec time: 0.24 sec Lat Peak E' Ari: 7.9 cm/sec E/ e' (lat): 9.6 Med Peak E' Ari: 4.7 cm/sec E/e' (med): 16.1 E/e' Average: 12.9 I ?WMSI = 1.06 ? % Normal = 94 ?Segments ??Size X - Cannot ?2 - ?4 - ?1-2 ? small Interpret ?1 - Normal ?? Hypokinetic 3 - Akinetic Dyskinetic ?? 3-5 ? moderate 5 - ? 6-14 ?large Aneurysmal ?15-16 ?? diffuse Procedure Note Edgard Wang MD - 10/31/2023 [address] [place] [address] Echocardiogram Report Name: ADIN SANTOS Study Date: 407:57 AMBP: 106/76 mmHg Patient Location: [id number] A : 1940 Height: 163 cm Account: [id number] Age: 83 yrs Weight: 76 kg Gender: Female BSA: 1.8 m2 Ordering Physician: ROSA DEWEY Referring Physician: OMAIRA GIRON Performed By: HAFSA Carmichael Reason For Study: STEMI Interpreting Fellow: Raymond Warren. Exam Location: [facility]. Interpretation Summary -The left ventricle is of [...] is no prior echocardiogram for comparison. Procedure Complete-11065. Satisfactory quality. There is sinus bradycardia. Left [...] V1 VTI: 23.6 cm MV E max ari: 75.9 cm/sec MV A max ari: 94.6 cm/sec MV E/A: 0.80 MV dec time: 0.24 sec Lat Peak E' Ari: 7.9 cm/sec E/ e' (lat): 9.6 Med Peak E' Ari: 4.7 cm/sec E/e' (med): 16.1 E/e' Average: 12.9 I WMSI = 1.06 % Normal = 94 SegmentsSize X - Cannot 2 - 4 - 1-2small Interpret 1 - Normal Hypokinetic 3 - Akinetic Dyskinetic 3-5moderate 5 - 6-14large Aneurysmal 15-16diffuse Rosa Cornejo MD ECHO ORDERABLES * (ABNORMAL) Troponin (10/31/2023 8:51 AM EDT) Troponin-T, High Sensitivity 571(H) <=14 ng/L [facility] Comment: This patient's troponin T concentration [...] troponin value can be found in the [facility] Test Catalog Troponin - [facility] Test Catalog Reference: Fourth [place] Definition of Myocardial Infarction. Journal of the [place] [employer] 2018;72:9901-8909 Blood 10/31/2023 8:51 AM EDT 10/31/2023 9:12 AM EDT Narrative Resulting Agency Comment Spec In Lab Rosa Cornejo MD CHEMISTRY ORDERABLE S [facility] [place] [address] * CARDIAC CATHETERIZATION (10/31/2023 8:10 AM EDT) Anatomical Region Laterality Modality Other Narrative 11/07/2023 9:42 AM EDT ?[facility] ? Cardiac Catheterization/Intervention Report ? Patient Name: Adin Santos. ? Procedure Date: 10/30/2023 ? A #: [id number] ? Primary Physician: Rosa Dewey I ? Case #: [id number] ? File Name: [id number] ? Catheterization Order Number: [id number] ? [facility] ? Final Report [place], [place] ? Patient Name: ? Adin M. Goguen ?ID#: ?[id number] ? : ?1940 ? Procedure Date: ? October 30, 2023 ? Case #: ? [id number] ? Room: ? 5 ? Case Physician: ? Rosa Dewey M.D. ? Start: ?17:26 ?Fellow: ? Tavon Ha Jr., M.D. ?Admission: ??10/30/2023 ? Discharge: ??11/03/2023 ? Referring Physician: ??Omaira Giron M.D. ? Procedures: ?* Coronary Angiography ?* Left Heart Catheterization ?* Coronary Ultrasound ?* Coronary Stent Insertion ?* Vascular Closure Device Deployment ?* Access Site Angiography ?* Vascular Ultrasound ? Pre Case Status: ?These procedures were performed on an emergent basis. ? History ?Adin Santos is an 83 year old woman. She has hypertension. The ?patient's smoking status is Former. She has hypercholesterolemia managed ?with lipid therapy. The patient is also status post an acute ST elevation ?myocardial infarction. Prior to the initiation of this procedure, the ?patient was designated as ASA Class III. The CSHA clinical frailty scale ?is 5: Mildly Frail. ? Diagnostic Tests: ?Electrocardiography: ? EKG was assessed by ECG. EKG was Abnormal. EKG showed ST Deviation ? >= 0.5 mm, other abnormality and dynamic EKG changes. ?Medications Prior to Procedure: ? Aspirin, Angiotensin II Receptor Kristy, Beta Kristy and Statin. ? Indications for Diagnostic Cath: ?The priority of the diagnostic procedure was Emergent. The indication for ?the dental laboratory supervisor visit is ACS less than or equal to 24 hrs. Chest pain ?symptom assessment was: Typical Angina. ? Technique: ?A 6 SLFr sheath was inserted in the right radial artery utilizing the ?Seldinger technique. A 7Fr sheath was inserted in the right femoral ?artery utilizing the Seldinger technique. The left coronary artery was ?injected utilizing a 5Fr JL 3.5 catheter. A 5Fr JR 4 catheter was used to ?inject the right coronary artery. Left ventricular pressure was performed ?utilizing a 5Fr JR 4 catheter. Coronary stent insertion was performed and ?the equipment utilized will be described in the intervention summary ?section. 15,000 units of heparin were administered. A total of 300cc of ?Omnipaque were opened, 210cc of Omnipaque were administered and 90cc of ?Omnipaque were wasted. Radiation: Fluoro time was 72.1 minutes, dose area ?product was 150.00 Gy/cm2 and air kerma was 1,657 mGY. See the case log ?for additional details. ?The patient received the following medications prior to and during the ?procedure: ? Unfractionated Heparin and Ticagrelor. ? Hemodynamics: ?Left Heart Pressures ? Resting: ? Syst Diast ? EDP ?a ?v ? m ?Ao 131 ?? 73 ?99 ?LV 132 ? 15 ? Coronary Angiography: ?Dominance: Right ?Left Main ? There was mild diffuse (<=25% stenosis) disease of the entire vessel ? segment of the left main artery and it was calcified. ??The left main ? was large. ?Left Anterior Descending ? There was mild diffuse (<=25% stenosis) disease of the entire vessel ? segment of the left anterior descending artery (LAD). ??The LAD was ? large. ?Left Circumflex ? There was mild diffuse (<=25% stenosis) disease of the entire vessel ? segment of the left circumflex artery (LCX). ??The LCX was large. ? There was a 70% calcified single discrete stenosis of the ostial ? segment of the first obtuse marginal branch (OM1) of the LCX. ??The ? OM1 was large. ?Right Coronary Artery ? There was mild diffuse (<=25% stenosis) disease of the entire vessel ? segment of the right coronary artery (RCA). ??The RCA was large. ??The ? mid segment of the RCA had a calcified single discrete total ? occlusion. ??There was evidence of thrombus in this lesion. Distal ? flow was via collaterals from the LCX. ? Intravascular Imaging/Physiology: ?Intravascular Ultrasound was performed in the mid RCA using a 6 Fr AL 1 ?guiding catheter and a 3.1 Fr Refinity 42 MHz catheter using auto 1 ?mm/sec pullback. ??Imaging was successful. ?Indication: IVUS performed for pre intervention planning and post ?intervention assessment. ?IVUS performed after pre-dilation. ??IVUS performed after vessel ?manipulation. ?Findings Pre-Intervention: thrombus, calcification and with 360 degrees ?calcification. These measurements were performed after pre-dilation of ?the lesion. ?Findings Post-Intervention: The post intervention minimal cross- sectional ?area was 9.60mm2. ??The stent was well expanded and apposed. ?Conclusions: stent/intervention appears optimized. ? Indication for Intervention: ?Coronary intervention was indicated for primary therapy for an acute ?myocardial infarction. The priority for the procedure was Emergent. The ?NCDR indication for the procedure was STEMI-Immediate PCI for Acute ?STEMI. STEMI onset was 10/30/2023 at 8:00 AM, estimated. ? Intervention Summary: ?Right Coronary Artery ? Mid 100% ? Stent insertion was performed on the total occlusion in the ? mid segment of the RCA. This was a de bertin lesion. According ? to the ACC/AHA classification system, this lesion was a type C ? high risk lesion. Primary prevention of restenosis was the ? indication for stent insertion. This was the culprit lesion. A ? guidewire was placed across this lesion. Vessel flow pre ? intervention was SAMIRA 0. Lesion length was 28mm. This lesion ? was severely calcified. ? Stent insertion was accomplished through a 7 Fr. AL 1 guide. ? The lesion was predilated with a 3.00mm NC EMERGE 15 MM ? balloon with a maximum inflation pressure of 16 atmospheres. ? A premounted 4.00 x 38 mm [place] (RADAH) was deployed ? with a maximum inflation pressure of 12 atmospheres. ? Following stent deployment, the lesion was dilated using a ? 4.50mm NC EUPHORA 15 MM balloon with a maximum inflation ? pressure of 12 atmospheres. ? The final outcome was defined as successful. A coronary ? arteriolar vasodilator was administered as part of the ? intervention on this lesion. There was no residual stenosis ? following this intervention. The final SAMIRA flow was 3. ? Vascular Access: ?Vascular Access Angiogram: ? A selective angiogram at the right femoral artery revealed mild ? diffuse disease. ?Vascular Ultrasound: ? Ultrasound of the right femoral artery was used to guide access and ? showed vessel patent with mild disease. ?Vascular Access Management: ? Mechanical Compression of the right radial artery access site was ? performed. ? A Perclose was deployed at the right femoral artery access site. ? This device was successful. ? Dual Antiplatelet (DAPT) Recommendations: ?Drug eluting stent (RADHA) inserted. ?P2Y12 Loading dose administered prior to arrival in the dental laboratory supervisor. ?Recommended anti-platelet/anti-thrombotic regimen: ?Continue aspirin 81 mg daily for 12 months then stop. ?Continue clopidogrel 75 mg daily for indefinitely. ?These recommendations are made at the time of the intervention. Patient ?and provider preferences or a changing clinical situation may require ?modification of this regimen. Consult [facility] Interventional Cardiology for ?questions. ? 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 Complications/Events: ?The patient had no complications during these procedures. ? Post Procedure Fluid Recommendations: ?IV fluid at 212 mL/hr for 6 hours for a total of 1,272 mL. These ?recommendations are made at the time of the procedure. Patient and ?provider preferences or a changing clinical situation may require ?modification of this regimen. ? Recommendations: ?Based upon the results of these procedures, it was recommended that the ?patient be managed with medical therapy and have coronary intervention. ?The attending physician was present for the entire procedure. ?Dr. Rosa Dewey M.D. was present during the moderate sedation ?intraservice time as documented by the sedation nurse. ??Case time = 02:40. ?Dr. Rosa Dewey M.D. performed the coronary angiography, left heart ?catheterization, IVUS # coronary, stent insertion-coronary, access site ?angiography, vascular closure device and vascular ultrasound. ? Rosa Dewey M.D. ? Electronically Signed by: Rosa Dewey M.D. ? Report Finalized: 11/07/2023 ??09:36 ? Report Last Ammended: 12/05/2023 ??09:12 ? Procedure Note Rosa Dewey MD - 12/05/[address] [facility] Cardiac Catheterization/Intervention Report Patient Name: Adin Santos Procedure Date: 10/30/2023 A #: [id number] Primary Physician: Rosa Dewey I Case #: [id number] File Name: [id number] Catheterization Order Number: [id number] [facility] FinalReport [place], [place] Patient Name: Adin CatherineYasir Edvinree ID#:[id number] :[id number] Procedure Date: October 30, 2023 Case #: [id number] Room: 5 Case Physician: Rosa Dewey M.D. Start: 17:26 Fellow: Tavon Ha Jr., M.D. Admission:10/30/2023 Discharge:11/03/2023 Referring Physician: Omaira Giron M.D. Procedures: * Coronary Angiography * Left Heart Catheterization * Coronary Ultrasound * Coronary Stent Insertion * Vascular Closure Device Deployment * Access Site Angiography * Vascular Ultrasound Pre Case Status: These procedures were performed on an emergent basis. History Adin Santos is an 83 year old woman. She has hypertension. The patient's smoking status is Former. She has hypercholesterolemiamanaged with lipid therapy. The patient is also status post an acute STelevation myocardial infarction. Prior to the initiation of this procedure,the patient was designated as ASA Class III. The [facility] clinical frailtyscale is 5: Mildly Frail. Diagnostic Tests: Electrocardiography: EKG was assessed by ECG. EKG was Abnormal. EKG showed STDeviation >= 0.5 mm, other abnormality and dynamic EKG changes. Medications Prior to Procedure: Aspirin, Angiotensin II Receptor Kristy, Beta Kristy andStatin. Indications for Diagnostic Cath: The priority of the diagnostic procedure was Emergent. Theindication for the dental laboratory supervisor visit is ACS less than or equal to 24 hrs. Chest pain symptom assessment was: Typical Angina. Technique: A 6 SLFr sheath was inserted in the right radial artery utilizingthe Seldinger technique. A 7Fr sheath was inserted in the right femoral artery utilizing the Seldinger technique. The left coronary arterywas injected utilizing a 5Fr JL 3.5 catheter. A 5Fr JR 4 catheter wasused to inject the right coronary artery. Left ventricular pressure wasperformed utilizing a 5Fr JR 4 catheter. Coronary stent insertion wasperformed and the equipment utilized will be described in the intervention summary section. 15,000 units of heparin were administered. A total of 300ccof Omnipaque were opened, 210cc of Omnipaque were administered and 90ccof Omnipaque were wasted. Radiation: Fluoro time was 72.1 minutes, dosearea product was 150.00 Gy/cm2 and air kerma was 1,657 mGY. See the caselog for additional details. The patient received the following medications prior to and duringthe procedure: Unfractionated Heparin and Ticagrelor. Hemodynamics: Left Heart Pressures Resting: Syst Diast EDP a v m Ao 131 73 99 LV 132 15 Coronary Angiography: Dominance: Right Left Main There was mild diffuse (<=25% stenosis) disease of the entirevessel segment of the left main artery and it was calcified. The leftmain was large. Left Anterior Descending There was mild diffuse (<=25% stenosis) disease of the entirevessel segment of the left anterior descending artery (LAD). The LADwas large. Left Circumflex There was mild diffuse (<=25% stenosis) disease of the entirevessel segment of the left circumflex artery (LCX). The LCX waslarge. There was a 70% calcified single discrete stenosis of theostial segment of the first obtuse marginal branch (OM1) of the LCX.The OM1 was large. Right Coronary Artery There was mild diffuse (<=25% stenosis) disease of the entirevessel segment of the right coronary artery (RCA). The RCA was large.The mid segment of the RCA had a calcified single discrete total occlusion. There was evidence of thrombus in this lesion.Distal flow was via collaterals from the LCX. Intravascular Imaging/Physiology: Intravascular Ultrasound was performed in the mid RCA using a 6 FrAL 1 guiding catheter and a 3.1 Fr Refinity 42 MHz catheter using auto 1 mm/sec pullback. Imaging was successful. Indication: IVUS performed for pre intervention planning and post intervention assessment. IVUS performed after pre-dilation. IVUS performed after vessel manipulation. Findings Pre-Intervention: thrombus, calcification and with 360degrees calcification. These measurements were performed after pre-dilationof the lesion. Findings Post-Intervention: The post intervention minimalcross-sectional area was 9.60mm2. The stent was well expanded and apposed. Conclusions: stent/intervention appears optimized. Indication for Intervention: Coronary intervention was indicated for primary therapy for an acute myocardial infarction. The priority for the procedure was Emergent.The [facility] indication for the procedure was STEMI-Immediate PCI for Acute STEMI. STEMI onset was 10/30/2023 at 8:00 AM, estimated. Intervention Summary: Right Coronary Artery Mid 100% Stent insertion was performed on the total occlusion inthe mid segment of the RCA. This was a de bertin lesion.According to the ACC/AHA classification system, this lesion was atype C high risk lesion. Primary prevention of restenosis wasthe indication for stent insertion. This was the culpritlesion. A guidewire was placed across this lesion. Vessel flow pre intervention was SAMIRA 0. Lesion length was 28mm. Thislesion was severely calcified. Stent insertion was accomplished through a 7 Fr. AL 1guide. The lesion was predilated with a 3.00mm NC EMERGE 15 MM balloon with a maximum inflation pressure of 16atmospheres. A premounted 4.00 x 38 mm [place] (RADHA) wasdeployed with a maximum inflation pressure of 12 atmospheres. Following stent deployment, the lesion was dilated usinga 4.50mm NC EUPHORA 15 MM balloon with a maximum inflation pressure of 12 atmospheres. The final outcome was defined as successful. A coronary arteriolar vasodilator was administered as part of the intervention on this lesion. There was no residualstenosis following this intervention. The final SAMIRA flow was 3. Vascular Access: Vascular Access Angiogram: A selective angiogram at the right femoral artery revealed mild diffuse disease. Vascular Ultrasound: Ultrasound of the right femoral artery was used to guide accessand showed vessel patent with mild disease. Vascular Access Management: Mechanical Compression of the right radial artery access sitewas performed. A Perclose was deployed at the right femoral artery accesssite. This device was successful. Dual Antiplatelet (DAPT) Recommendations: Drug eluting stent (RADHA) inserted. P2Y12 Loading dose administered prior to arrival in the dental laboratory supervisor. Recommended anti-platelet/anti-thrombotic regimen: Continue aspirin 81 mg daily for 12 months then stop. Continue clopidogrel 75 mg daily for indefinitely. These recommendations are made at the time of the intervention.Patient and provider preferences or a changing clinical situation mayrequire modification of this regimen. Consult [facility] Interventional Cardiologyfor questions. 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 Post Procedure Fluid Recommendations: IV fluid at 212 mL/hr for 6 hours for a total of 1,272 mL. These recommendations are made at the time of the procedure. Patient and provider preferences or a changing clinical situation may require modification of this regimen. Recommendations: Based upon the results of these procedures, it was recommended thatthe patient be managed with medical therapy and have coronaryintervention. The attending physician was present for the entire procedure. Dr. Rosa Dewey M.D. was present during the moderate sedation intraservice time as documented by the sedation nurse. Case time =02:40. Dr. Rosa Dewey M.D. performed the coronary angiography, leftheart catheterization, IVUS # coronary, stent insertion-coronary, accesssite angiography, vascular closure device and vascular ultrasound. Rosa Dewey M.D. Electronically Signed by: Rosa Dewey M.D. Report Finalized: 11/07/2023 09:36 Report Last Ammended: 12/05/2023 09:12 Rosa Cornejo MD CARDIAC CATH ORDERA BLES * (ABNORMAL) Troponin (10/31/2023 4:21 AM EDT) [facility] Troponin-T, High Sensitivity 457(H) <=14 ng/L [facility] Comment: This patient's troponin T concentration [...] troponin value can be found in the [facility] Test Catalog Troponin - [facility] Test Catalog Reference: Fourth [place] Definition of Myocardial Infarction. Journal of the [place] [employer] 2018;72:0748-2214 Blood 10/31/2023 4:21 AM EDT 10/31/2023 4:30 AM EDT Narrative Resulting Agency Comment Spec In Lab Rosa Cornejo MD CHEMISTRY ORDERABLE S [facility] [place] [address] * (ABNORMAL) Differential, Automated (10/31/2023 3:05 AM EDT) Neutrophil % 71.7 % [facility] Neutrophil Absolute 8.21(H) 1.70 - 6.10 x10(3)/mc L [facility] Lymph % 16.9 % [facility] Lymphocytes Abs 1.9 0.9 - 3.2 x10(3)/mc L [facility] Monocyte % 9.4 % [facility] Monocyte Abs 1.1(H) 0.3 - 0.9 x10(3)/mc L [facility] Eos % 1.3 % [facility] Eosinophils Abs 0.2 0.0 - 0.4 x10(3)/mc L [facility] Basophil % 0.4 % [facility] Baso Absolute 0.0 0.0 - 0.1 x10(3)/mc L [facility] Immature Gran % 0.30 % [facility] Comment: Immature granulocytes(IG's)percentage and absolute count will include metamyelocytes, myelocytes, and promyelocytes. Blood smears from CBCs yielding IG's will be scanned manually for concordance. If this scan disagrees with the automated IG or if promyelocytes are noted, a manual differential will be performed. Immature Gran Absolute 0.04 0.00 - 0.04 x10(3)/mc L [facility] Blood 10/31/2023 3:05 AM EDT 10/31/2023 3:13 AM EDT Narrative Resulting Agency Comment Spec In Lab Qamar Gallardo MD HEMATOLOGY ORDERABLE S [facility] [place] [address] * (ABNORMAL) Hemogram (10/31/2023 3:05 AM EDT) White Blood Cell 11.5(H) 4.0 - 9.5 x10(3)/ L [facility] Red Blood Cell 3.75(L) 4.00 - 5.21 x10(6)/[facility] Hemoglobin 12.6 11.7 - 15.5 g/dL [facility] Hematocrit 37.1 35.7 - 45.8 % [facility] Mean Cell Volume 98.9(H) 82.6 - 94.4 fL [facility] Mean Cell Hemoglobin 33.6(H) 27.1 - 32.0 pg [facility] Mean Cell Hemoglobin Concentration 34.0 31.7 - 35.0 g/dL [facility] Platelet 206 145 - 357 x10(3)/ L [facility] RDW Standard Deviation 53.4(H) 37.0 - 46.0 [facility] RDW coefficient of variation 14.6(H) 11.5 - 14.1 % [facility] Mean Platelet Volume 11.1 7.6 - 12.9 [facility] NRBC% auto 0.0 % [facility] NRBC Absolute 0.000 0.000 - 0.000 x10(3)/ L [facility] Blood 10/31/2023 3:05 AM EDT 10/31/2023 3:13 AM EDT Narrative Resulting Agency Comment Spec In Lab Qamar Gallardo MD HEMATOLOGY ORDERABLE S Performing Organization Address [facility] Co de Phone Number [facility] [place] [address] * (ABNORMAL) APTT (10/31/2023 3:05 AM EDT) Partial Thromboplastin Time 67(H) 25 - 37 sec [facility] Comment: The PTT is NOT appropriate for heparin monitoring. Use the Anti-Xa level for heparin monitoring (HEP UFH) or LMWH monitoring (HEP LMW). A PTT less than 37 seconds generally indicates adequate hemostasis. Blood 10/31/2023 3:05 AM EDT 10/31/2023 3:13 AM EDT Narrative Resulting Agency Comment Spec In Lab Rosa Cornejo MD HEMATOLOGY ORDERABL ES Performing Organization Address [facility] de Phone Number [facility] [address] * (ABNORMAL) Prothrombin Time (10/31/2023 3:05 AM EDT) Prothrombin Time 12.6(H) 9.4 - 12.5 sec [facility] International Normalization Ratio 1.1 [facility] Comment: An INR <2.0 indicates adequate [...] MD HEMATOLOGY ORDERABL ES Performing Organization Address [facility] Co de Phone [place] [address] * (ABNORMAL) Differential, Automated (10/31/2023 1:37 AM EDT) Pathologist [facility] Neutrophil % 71.1 % [facility] Neutrophil Absolute 7.53(H) 1.70 - 6.10 x10(3)/ L [facility] Lymph % 18.0 % [facility] Lymphocytes Abs 1.9 0.9 - 3.2 x10(3)/ L [facility] Monocyte % 8.7 % [facility] Monocyte Abs 0.9 0.3 - 0.9 x10(3)/[facility] Eos % 1.6 % [facility] Eosinophils Abs 0.2 0.0 - 0.4 x10(3)/[facility] Basophil % 0.4 % [facility] Baso Absolute 0.0 0.0 - 0.1 x10(3)/[facility] Immature Gran % 0.20 % [facility] Comment: Immature granulocytes(IG's)percentage and absolute count will include metamyelocytes, myelocytes, and promyelocytes. Blood smears from CBCs yielding IG's will be scanned manually for concordance. If this scan disagrees with the automated IG or if promyelocytes are noted, a manual differential will be performed. Immature Gran Absolute 0.02 0.00 - 0.04 x10(3)/ L [facility] Blood 10/31/2023 1:37 AM EDT 10/31/2023 1:46 AM EDT Narrative Resulting Agency Comment Spec In Lab Qamar Gallardo MD HEMATOLOGY ORDERABLE S [facility] [place] [address] * (ABNORMAL) Hemogram (10/31/2023 1:37 AM EDT) Pathologist [facility] White Blood Cell 10.6(H) 4.0 - 9.5 x10(3)/mc L [facility] Red Blood Cell 3.78(L) 4.00 - 5.21 x10(6)/mc L [facility] Hemoglobin 13.0 11.7 - 15.5 g/dL [facility] Hematocrit 37.9 35.7 - 45.8 % [facility] Mean Cell Volume 100.3(H) 82.6 - 94.4 fL [facility] Mean Cell Hemoglobin 34.4(H) 27.1 - 32.0 pg [facility] Mean Cell Hemoglobin Concentration 34.3 31.7 - 35.0 g/dL [facility] Platelet 204 145 - 357 x10(3)/ L [facility] RDW Standard Deviation 54.3(H) 37.0 - 46.0 fL [facility] RDW coefficient of variation 14.6(H) 11.5 - 14.1 % [facility] Mean Platelet Volume 11.1 7.6 - 12.9 fL [facility] NRBC% auto 0.0 % [facility] NRBC Absolute 0.000 0.000 - 0.000 x10(3)/ L [facility] Blood 10/31/2023 1:37 AM EDT 10/31/2023 1:46 AM EDT Narrative Resulting Agency Comment Spec In Lab Qamar Gallardo MD HEMATOLOGY ORDERABLE S [facility] [place] [address] * Phosphorus (10/31/2023 1:37 AM EDT) Phosphorus 3.2 2.5 - 4.5 mg/dL [facility] Blood 10/31/2023 1:37 AM EDT 10/31/2023 1:46 AM EDT Narrative Resulting Agency Comment Spec In Lab Rosa Cornejo MD CHEMISTRY ORDERABLE S [facility] [place] [address] * Magnesium (10/31/2023 1:37 AM EDT) Pathologist [facility] Magnesium 0.83 0.69 - 1.07 mmol/L [facility] Blood 10/31/2023 1:37 AM EDT 10/31/2023 1:46 AM EDT Narrative Resulting Agency Comment Spec In Lab Rosa Cornejo MD CHEMISTRY ORDERABLE S Performing Organization Address [facility] Co de Phone Number [facility] [place] [place] [address] * Basic Metabolic Panel (non-fasting) (10/31/2023 1:37 AM EDT) Pathologist [facility] Glucose 114 65 - 199 mg/dL [facility] Comment:Diabetes: >=200 mg/d L plus symptoms Blood Urea Nitrogen 13 8 - 18 mg/dL [facility] Creatinine 0.81 0.70 - 1.20 mg/dL [facility] Sodium 140 135 - 145 mmol/L [facility] Potassium 3.9 3.5 - 5.0 mmol/L [facility] Comment: Please note: ??Patients with WBC >100,000 may have falsely elevated Potassium levels. ??For accurate Potassium quantification in these patients send serum separator tube (gold top) for subsequent determinations. ??Contact the Clinical Chemistry Laboratory if there are any questions. Chloride 107 98 - 107 mmol/L [facility] Carbon Dioxide 25 22 - 31 mmol/L [facility] Anion Gap 8 5 - 15 mmol/L [facility] Calcium 8.6 8.5 - 10.5 mg/dL [facility] Est Glomerular Filtration Rate 72 >=60 mL/min/1. 73 m?? [facility] Comment: This patient's estimated GFR was [...] and symptoms in addition to eGFR. Blood 10/31/2023 1:37 AM EDT 10/31/2023 1:46 AM EDT Narrative Resulting Agency Comment Spec In Lab Rosa Cornejo MD CHEMISTRY ORDERABLE S [facility] [place] [address] * (ABNORMAL) Troponin (10/31/2023 1:37 AM EDT) Troponin-T, High Sensitivity 329(H) <=14 ng/L [facility] Comment: This patient's troponin T concentration [...] troponin value can be found in the [facility] Test Catalog Troponin - [facility] Test Catalog Reference: Fourth [place] Definition of Myocardial Infarction. Journal of the [place] [employer] 2018;72:7572-2373 Blood 10/31/2023 1:37 AM EDT 10/31/2023 1:46 AM EDT Narrative Resulting Agency Comment Spec In Lab Rosa Cornejo MD CHEMISTRY ORDERABLE S Performing Organization Address [facility]/ZIP Co de Phone Number [facility] [place] [address] * EKG 12 Lead (10/31/2023 1:20 AM EDT) Ventricular rate 52 BPM MUSE SYSTEM Atrial Rate 52 BPM MUSE SYSTEM P-R Interval 224 ms MUSE SYSTEM QRS Duration 108 ms MUSE SYSTEM Q-T Interval 544 ms MUSE SYSTEM QTC Calculated (Bezet) 505 ms MUSE SYSTEM Calculated P Mckenna 90 degrees MUSE SYSTEM Calculated R Mckenna -57 degrees MUSE SYSTEM Calculated T Mckenna -63 degrees MUSE SYSTEM INTERPRETATION Sinus bradycardia with 1st degree A-V block Pulmonary disease pattern Left anterior fascicular block Moderate voltage criteria for LVH, may be normal variant ( R in aVL , Ifeanyi product ) T wave abnormality, consider inferior ischemia T wave abnormality, consider anterolateral ischemia Prolonged QT Abnormal ECG When compared with ECG of 30-OCT-2023 22:40, No significant change was found Confirmed by Charles COFFMAN, Butch ([id number]) on 11/01/2023 8:58:03 PM MUSE SYSTEM 10/31/2023 1:20 AM EDT 11/01/2023 8:58 PM EDT Rosa Cornejo MD ECG ORDERABLES Performing Organization Address City/[facility]/ZIP Co de Phone Number MUSE SYSTEM * EKG 12 Lead (10/30/2023 10:40 PM EDT) Ventricular rate 55 BPM MUSE SYSTEM Atrial Rate 55 BPM MUSE SYSTEM P-R Interval 232 ms MUSE SYSTEM QRS Duration 102 ms MUSE SYSTEM Q-T Interval 520 ms MUSE SYSTEM QTC Calculated (Bezet) 497 ms MUSE SYSTEM Calculated P Mckenna 75 degrees MUSE SYSTEM Calculated R Mckenna -53 degrees MUSE SYSTEM Calculated T Mckenna -57 degrees MUSE SYSTEM INTERPRETATION Sinus bradycardia with 1st degree A-V block Left anterior fascicular block Moderate voltage criteria for LVH, may be normal variant ( R in aVL , [place] product ) T wave abnormality, consider inferior ischemia T wave abnormality, consider anterolateral ischemia Prolonged QT Abnormal ECG When compared with ECG of 30-OCT-2023 20:21, Incomplete right bundle branch block is no longer Present Confirmed by Butch Soto MD ([id number]) on 11/01/2023 8:58:01 PM MUSE SYSTEM 10/30/2023 10:4 0 PM EDT 11/01/2023 8:58 PM EDT Rosa Cornejo MD ECG ORDERABLES MUSE SYSTEM * XR Chest One View (10/30/2023 10:10 PM EDT) [employer] WORKSTATION ID [id number] DH RAD Anatomical Region Laterality Modality Chest N/A Digital Radiogra phy Impressions 10/30/2023 10:32 PM EDT 1. ??Examination limited by low lung volumes. 2. ??Findings suggesting pulmonary vascular congestion with possible mild interstitial edema. 3. ??Known ascending aortic aneurysm, as seen on recent CT. 4. ??Nonspecific widening mediastinum. This can be secondary to magnification from portable technique and low lung volumes. Findings similar to measurer machine radiograph from CT 10/30/2023. Thank you for letting us participate in the care of this patient. ??If you are a health care provider and have any questions regarding this report, please contact the number below. ??For patients who have questions please contact the health child care team lead that requested your imaging first. ? Narrative 10/30/2023 10:32 PM EDT EXAMINATION: XR CHEST ONE VIEW CLINICAL HISTORY: Recent chest pain TECHNIQUE: 1 view of the chest , single image COMPARISON: CT chest 10/30/2023 from outside institution FINDINGS: Partially visualized reversed right shoulder arthroplasty. Anchors project over the left humeral head. EKG leads are present. There are low bilateral lung volumes with bronchovascular crowding. No airspace opacity to suggest lobar pneumonia. Pulmonary vascular markings are prominent and indistinct. Suggestion of Jenniffer B lines within the peripheral left lung. Calcification of the aortic arch. Nonspecific widening appearance of the mediastinum, in this patient with known ascending aortic aneurysm seen on prior CT. Limited assessment of osseous structures demonstrates no acute abnormality. Procedure Note Wilson Mccartney MD - 10/30/2023 EXAMINATION: XR CHEST ONE VIEW CLINICAL HISTORY: Recent chest pain TECHNIQUE: 1 view of the chest , single image COMPARISON: CT chest 10/30/2023 from outside institution FINDINGS: Partially visualized reversed right shoulder arthroplasty. Anchors project over the left humeral head. EKG leads are present. There are low bilateral lung volumes with bronchovascular crowding. Noairspace opacity to suggest lobar pneumonia. Pulmonary vascular markings areprominent and indistinct. Suggestion of Jenniffer B lines within the peripheral leftlung. Calcification of the aortic arch. Nonspecific widening appearance of the mediastinum, in this patient with known ascending aortic aneurysm seen onprior CT. Limited assessment of osseous structures demonstrates no acuteabnormality. IMPRESSION 1. Examination limited by low lung volumes. 2. Findings suggesting pulmonary vascular congestion with possible mild interstitial edema. 3. Known ascending aortic aneurysm, as seen on recent CT. 4. Nonspecific widening mediastinum. This can be secondary tomagnification from portable technique and low lung volumes. Findings similar to measurer machine radiograph from CT 10/30/2023. Thank you for letting us participate in the care of this patient. If youare a health care provider and have any questions regarding this report,please contact the number below. For patients who have questions please contactthe health child care team lead that requested your imaging first. Rosa Cornejo MD IMG DX ORDERABLES * Green Tube HOLD (10/30/2023 10:05 PM EDT) Pathologist [facility] Green Hold Sample in lab. [facility] Blood Venous Draw / Unknown 10/30/2023 10:05 PM EDT 10/30/2023 10:13 PM EDT Qamar Gallardo MD CHEMISTRY ORDERABLES [facility] [place] [address] * (ABNORMAL) Differential, Automated (10/30/2023 10:05 PM EDT) Pathologist [facility] Neutrophil % 76.6 % [facility] Neutrophil Absolute 6.94(H) 1.70 - 6.10 x10(3)/mc L [facility] Lymph % 15.4 % [facility] Lymphocytes Abs 1.4 0.9 - 3.2 x10(3)/mc L [facility] Monocyte % 6.1 % [facility] Monocyte Abs 0.6 0.3 - 0.9 x10(3)/mc L [facility] Eos % 1.1 % [facility] Eosinophils Abs 0.1 0.0 - 0.4 x10(3)/mc L [facility] Basophil % 0.6 % [facility] Baso Absolute 0.0 0.0 - 0.1 x10(3)/mc L [facility] Immature Gran % 0.20 % [facility] Comment: Immature granulocytes(IG's)percentage and absolute count will include metamyelocytes, myelocytes, and promyelocytes. Blood smears from CBCs yielding IG's will be scanned manually for concordance. If this scan disagrees with the automated IG or if promyelocytes are noted, a manual differential will be performed. Immature Gran Absolute 0.02 0.00 - 0.04 x10(3)/mc L [facility] Blood 10/30/2023 10:0 5 PM EDT 10/30/2023 10:12 PM EDT Narrative Resulting Agency Comment Spec In Lab Qamar Gallardo MD HEMATOLOGY ORDERABLE S [facility] [place] [address] * (ABNORMAL) Hemogram (10/30/2023 10:05 PM EDT) White Blood Cell 9.0 4.0 - 9.5 x10(3)/mc L [facility] Red Blood Cell 3.96(L) 4.00 - 5.21 x10(6)/mc L [facility] Hemoglobin 13.3 11.7 - 15.5 g/dL [facility] Hematocrit 39.1 35.7 - 45.8 % [facility] Mean Cell Volume 98.7(H) 82.6 - 94.4 fL [facility] Mean Cell Hemoglobin 33.6(H) 27.1 - 32.0 pg [facility] Mean Cell Hemoglobin Concentration 34.0 31.7 - 35.0 g/dL [facility] Platelet 211 145 - 357 x10(3)/mc L [facility] RDW Standard Deviation 53.6(H) 37.0 - 46.0 fL [facility] RDW coefficient of variation 14.6(H) 11.5 - 14.1 % [facility] Mean Platelet Volume 11.1 7.6 - 12.9 fL [facility] NRBC% auto 0.0 % [facility] NRBC Absolute 0.000 0.000 - 0.000 x10(3)/mc L [facility] Blood 10/30/2023 10:0 5 PM EDT 10/30/2023 10:12 PM EDT Narrative Resulting Agency Comment Spec In Lab Qamar Gallardo MD HEMATOLOGY ORDERABLE S Performing Organization Address [facility] Co de Phone Number [facility] [address] * Hemoglobin A1c (10/30/2023 10:05 PM EDT) Hemoglobin A1c 5.5 4.3 - 5.6 % [facility] Comment: Reference Range: 4.3 - 5.6% [...] Mellitus, Diabetes Care 2013; 36: Suppl. 1, S67-09 Estimated Average Glucose See note mg/dL [facility] Comment: Estimated Average Glucose not appropriate for patients over 70 years of age. Blood 10/30/2023 10:0 5 PM EDT 10/30/2023 10:12 PM EDT Narrative Resulting Agency Comment Spec In Lab Rosa Cornejo MD CHEMISTRY ORDERABLE S Performing Organization Address [facility] Co de Phone Number [facility] [address] * Lipid Panel (Reflex Direct LDL) (10/30/2023 10:05 PM EDT) Cholesterol, Total 218 mg/dL [facility] Comment: Desirable: ? <200 mg/dL Borderline High: 200-239 mg/dL Higher: ?>qb=854 mg/dL Triglyceride 46 mg/dL [facility] Comment: Normal: ?<150 mg/dL Borderline High: 150-199 mg/dL High: ?200-499 mg/dL Very High: ? >my=590 mg/dL HDL Cholesterol 64 mg/dL [facility] Comment: Females: High Risk: <50 mg/dL Males: High Risk: <40 mg/dL LDL Cholesterol 145 mg/dL [facility] Comment: Desirable: ? <100 mg/dL Above Desirable: 100-129 mg/dL Borderline High: 130-159 mg/dL High: ?160-189 mg/dL Very High: ? >xw=564 mg/dL Lipid Interpretation See Note [facility] Comment: It is important to review [...] ACC/AHA Guidelines (most recently Feliciano et al. [facility] 03/23/22): For individuals with atherosclerotic cardiovascular disease (ASCVD)or LDL >he=364 mg/dL, use a high-intensity statin (40-80 mg [...] MD CHEMISTRY ORDERABLE S Performing Organization Address [facility] Co de Phone Number [facility] [place] [address] * TSH Bleckley (10/30/2023 10:05 PM EDT) Thyroid Stimulating Hormone 3.35 0.27 - 4.20 mcIU/mL [facility] Comment: Reference Interval (mcIU/mL): Females: ??First Trimester: 0.23-3.88 ??Second Trimester: 0.22-3.90 ??Third Trimester: 0.44-4.66 Blood 10/30/2023 10:0 5 PM EDT 10/30/2023 10:12 PM EDT Narrative Resulting Agency Comment Spec In Lab Rosa Cornejo MD CHEMISTRY ORDERABLE S Performing Organization Address [facility] Co de Phone Number [facility] [place] [address] * pro-Brain Natriuretic Peptide (10/30/2023 10:05 PM EDT) NT-proBNP 375 <=449 pg/mL [facility] Blood 10/30/2023 10:0 5 PM EDT 10/30/2023 10:12 PM EDT Narrative Resulting Agency Comment Spec In Lab Rosa Cornejo MD CHEMISTRY ORDERABLE S [facility] [place] [address] * (ABNORMAL) Comprehensive metabolic panel (non-fasting) (10/30/2023 10:05 PM EDT) Glucose 121 65 - 199 mg/dL [facility] Comment:Diabetes: >=200 mg/d L plus symptoms Blood Urea Nitrogen 14 8 - 18 mg/dL [facility] Creatinine 0.85 0.70 - 1.20 mg/dL [facility] Sodium 142 135 - 145 mmol/L [facility] Potassium 3.9 3.5 - 5.0 mmol/L [facility] Comment: Please note: ??Patients with WBC >100,000 may have falsely elevated Potassium levels. ??For accurate Potassium quantification in these patients send serum separator tube (gold top) for subsequent determinations. ??Contact the Clinical Chemistry Laboratory if there are any questions. Chloride 105 98 - 107 mmol/L [facility] Carbon Dioxide 27 22 - 31 mmol/L [facility] Anion Gap 10 5 - 15 mmol/L [facility] Calcium 8.8 8.5 - 10.5 mg/dL [facility] Protein, Total 6.5 6.1 - 8.0 g/dL [facility] Albumin 4.2 3.2 - 5.2 g/dL [facility] Aspartate Aminotransferase 36(H) 0 - 30 unit/L [facility] Alanine Aminotransferase 17 0 - 30 unit/L [facility] Alkaline Phosphatase 54 35 - 105 unit/L [facility] Bilirubin, Total 0.5 0.2 - 1.3 mg/dL [facility] Est Glomerular Filtration Rate 68 >=60 mL/min/1. 73 m?? [facility] Comment: This patient's estimated GFR was [...] MD CHEMISTRY ORDERABLE S Performing Organization Address City/[facility]/ZIP Co de Phone Number [facility] [place] [address] * Phosphorus (10/30/2023 10:05 PM EDT) Phosphorus 3.3 2.5 - 4.5 mg/dL [facility] Blood 10/30/2023 10:0 5 PM EDT 10/30/2023 10:12 PM EDT Narrative Resulting Agency Comment Spec In Lab Rosa Cornejo MD CHEMISTRY ORDERABLE S Performing Organization Address City/[facility]/ZIP Co de Phone Number [facility] [address] * Magnesium (10/30/2023 10:05 PM EDT) Magnesium 0.86 0.69 - 1.07 mmol/L [facility] Blood 10/30/2023 10:0 5 PM EDT 10/30/2023 10:12 PM EDT Narrative Resulting Agency Comment Spec In Lab Rosa Cornejo MD CHEMISTRY ORDERABLE S Performing Organization Address City/[facility]/ZIP Co de Phone Number [facility] [place] [address] * (ABNORMAL) Troponin (10/30/2023 10:05 PM EDT) [facility] Troponin-T, High Sensitivity 214(H) <=14 ng/L [facility] Comment: This patient's troponin T concentration [...] troponin value can be found in the [facility] Test Catalog Troponin - [facility] Test Catalog Reference: Fourth [place] Definition of Myocardial Infarction. Journal of the [place] [employer] 2018;72:0821-0492 Blood 10/30/2023 10:0 5 PM EDT 10/30/2023 10:12 PM EDT Narrative Resulting Agency Comment Spec In Lab Rosa Cornejo MD CHEMISTRY ORDERABLE S [facility] [address] * EKG 12 Lead (10/30/2023 8:21 PM EDT) [facility] Ventricular rate 49 BPM MUSE SYSTEM Atrial Rate 49 BPM MUSE SYSTEM P-R Interval 230 ms MUSE SYSTEM QRS Duration 96 ms MUSE SYSTEM Q-T Interval 526 ms MUSE SYSTEM QTC Calculated (Bezet) 475 ms MUSE SYSTEM Calculated P Mckenna 98 degrees MUSE SYSTEM Calculated R Mckenna -48 degrees MUSE SYSTEM Calculated T Mckenna -51 degrees MUSE SYSTEM INTERPRETATION Sinus bradycardia with 1st degree A-V block Incomplete right bundle branch block Left anterior fascicular block Moderate voltage criteria for LVH, may be normal variant ( R in aVL , [place] product ) T wave abnormality, consider inferior ischemia T wave abnormality, consider anterolateral ischemia Prolonged QT Abnormal ECG When compared with ECG of 01-SEP-2007 11:02, Incomplete right bundle branch block is now Present Confirmed by MD LINDSAY DAVID ([id number]) on 10/31/2023 10:45:41 AM MUSE SYSTEM 10/30/2023 8:21 PM EDT 10/31/2023 10:45 AM EDT Rosa Cornejo MD ECG ORDERABLES MUSE SYSTEM documented in this encounter Visit Diagnoses Diagnosis 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 Acute myocardial infarction of inferoposterior wall, initial episode of care Tachycardia Tachycardia, unspecified Unstable angina Intermediate coronary syndrome Unstable angina Intermediate coronary syndrome documented in this encounter Admitting Diagnoses Diagnosis Unstable angina Intermediate coronary syndrome documented in this encounter Administered Medications Inactive Administered Medications - up to 3 most recent administrations Medication Order MAR Action Action Date Dose Rate Site acetaminophen (Tylenol) tablet 650 mg 650 mg, Oral, EVERY 6 HOURS PRN, Starting on Tue10/31/23 at 2343, Until Amna 11/03/23 at 1913, Pain, Headaches, Maximum dose of acetaminophen is 4,000 mg from all sources in 24 hours. When ordered for pain, acetaminophen should be given even when other ordered pain medications are indicated., Routine Given 11/01/2023 11:44 AM EDT 650 mg Given 10/31/2023 11:52 PM EDT 650 mg acetaminophen (Tylenol) tablet 975 mg 975 mg, Oral, ONCE, 1 dose, On Tue11/02/23 at 0000, Maximum dose of acetaminophen is 4,000 mg from all sources in 24 hours. When ordered for pain, acetaminophen should be given even when other ordered pain medications are indicated., Routine Given 11/02/2023 2:25 AM EDT 975 mg aspirin EC tablet 81 mg 81 mg, Oral, DAILY, First dose on Tue10/31/23 at 0900, Until Discontinued, Recovery (Recovery-Hospital Unit), Routine Given 11/01/2023 9:39 AM EDT 81 mg Given 10/31/2023 8:56 AM EDT 81 mg aspirin EC tablet 81 mg 81 mg, Oral, DAILY, First dose on Tue11/02/23 at 0900, Until Discontinued, Recovery (Recovery-Hospital Unit), Routine Given 11/03/2023 8:16 AM EDT 81 mg Given 11/02/2023 9:37 AM EDT 81 mg atorvastatin (Lipitor) tablet 80 mg 80 mg, Oral, EVERY EVENING, First dose on Tue10/30/23 at 2245, Until Discontinued, Routine Given 11/03/2023 4:21 PM EDT 80 mg Given 11/02/2023 5:30 PM EDT 80 mg Given 11/01/2023 8:19 PM EDT 80 mg cefPODOXime (Vantin) tablet 200 mg 200 mg, Oral, 2 TIMES DAILY, First dose on Amna 11/03/23 at 1030, Until Discontinued, Routine, Indication for (Active or Suspected): Urinary Tract/Pyelonephritis Given 11/03/2023 10:20 AM EDT 200 mg cefTRIAXone (Rocephin) 1 g vial attach to sodium chloride 0.9% 50 mL Mini-Bag Plus 1 g, Intravenous, EVERY 24 HOURS, First dose on Tue11/02/23 at 1415, Until Discontinued, Administer over 30 Minutes, Indication for (Active or Suspected): Urinary Tract/Pyelonephritis New Bag 11/02/2023 3:16 PM EDT 1 g 100 mL/hr clopidogreL (Plavix) tablet 75 mg 75 mg, Oral, DAILY, First dose on Tue10/31/23 at 0900, Until Discontinued, Recovery (Recovery-Hospital Unit), Routine Given 11/01/2023 9:39 AM EDT 75 mg Given 10/31/2023 8:56 AM EDT 75 mg clopidogreL (Plavix) tablet 75 mg 75 mg, Oral, DAILY, First dose on Tue11/02/23 at 0900, Until Discontinued, Recovery (Recovery-Hospital Unit), Routine Given 11/03/2023 8:17 AM EDT 75 mg Given 11/02/2023 9:37 AM EDT 75 mg heparin (porcine) (5,000 units/1 mL) subcutaneous injection 5,000 Units 5,000 Units, Subcutaneous, EVERY 8 HOURS SCHEDULED, First dose on Tue10/30/23 at 2300, Until Discontinued, Routine Given 11/03/2023 1:38 PM EDT 5,000 Unit s Given 11/03/2023 6:07 AM EDT 5,000 Units Given 11/02/2023 8:14 PM EDT 5,000 Units hydrALAZINE (Apresoline) (20 mg/mL) injection 10 mg 10 mg, Intravenous, EVERY 4 HOURS PRN, Starting on Tue11/01/23 at 1620, Until Tue11/03/23 at 1913, High Blood Pressure Given 11/01/2023 4:28 PM EDT 10 mg hydrALAZINE (Apresoline) tablet 10 mg 10 mg, Oral, 3 TIMES DAILY, First dose on Tue10/31/23 at 0045, Until Discontinued, Take with Food, Routine Given 10/31/2023 12:16 AM EDT 10 mg hydrALAZINE (Apresoline) tablet 10 mg 10 mg, Oral, 3 TIMES DAILY, First dose (after last modification) on Tue10/31/23 at 1815, Until Discontinued, Take with Food, Routine Given 11/02/2023 9:37 AM EDT 10 mg Given 11/01/2023 8:19 PM EDT 10 mg Given 11/01/2023 6:48 PM EDT 10 mg lidocaine (Lidoderm) 5% patch 1 patch 1 patch, Transdermal, Administer over 12 Hours, EVERY 24 HOURS, First dose on Tue11/02/23 at 1445, Until Discontinued, Apply patch(es) for 12 hours, and then remove for [address] on patients upper left back where she has pain., Routine Patch Applied 11/03/2023 2:35 PM EDT 1 patch 03- Shoulder (Left) Patch Applied 11/02/2023 2:45 PM EDT 1 patch 07- Back Lower (Left) losartan (Cozaar) tablet 50 mg 50 mg, Oral, DAILY, First dose on Tue11/02/23 at 1030, Until Discontinued, Routine Given 11/03/2023 8:17 AM EDT 50 mg Given 11/02/2023 9:37 AM EDT 50 mg magnesium sulfate 1 g in dextrose 5% 100 mL infusion 1 g, Intravenous, ONCE, 1 dose, On Tue11/01/23 at 1045, Administer over 60 Minutes New Bag 11/01/2023 11:07 AM EDT 1 g 100 mL/hr magnesium sulfate 1 g in dextrose 5% 100 mL infusion 1 g, Intravenous, ONCE, 1 dose, On Tue11/03/23 at 0900, Administer over 60 Minutes New Bag 11/03/2023 8:25 AM EDT 1 g 100 mL/hr metoprolol succinate XL (Toprol-XL) tablet 12.5 mg 12.5 mg, Oral, DAILY, First dose (after last modification) on Tue11/03/23 at 1015, Until Discontinued, DO NOT CRUSH OR OPEN, Routine Given 11/03/2023 10:20 AM EDT 12.5 mg nitroGLYcerin (200 mcg/mL) in dextrose 5% 250 mL infusion 0-200 mcg/min (0-60 mL/hr), Intravenous, CONTINUOUS, Starting on Tue10/31/23 at 0230, Until Tue10/31/23 at 1724, For hypertension: Titrate to keep systolic blood pressure less than 130 mmHg. Start at 25 mcg/min. Increase/decrease by 25 mcg/min every 5 minutes until goal reached. Do not exceed 200 mcg/min., Routine New Bag 10/31/2023 10:09 AM EDT 0 mcg/min 0 mL/hr New Bag 10/31/2023 9:21 AM EDT 25 mcg/min 7.5 mL/hr New Bag 10/31/2023 9:01 AM EDT 50 mcg/min 15 mL/hr potassium chloride ER (Klor-Con M) crystal tablet 40 mEq 40 mEq, Oral, ONCE, 1 dose, On Tue11/01/23 at 1045, potassium chloride ER particle/crystal tablets (Klor-Con M) may be broken in half and each half swallowed separately. Tablets can be dissolved in ~4 ounces of water; allow ~2 minutes to dissolve, stir well and drink immediately. Do not crush, chew, or suck on tablet., Routine Given 11/01/2023 11:07 AM EDT 40 mEq potassium phosphate 15 mMol in sodium chloride 0.9% 250 mL infusion 15 mmol, Intravenous, EVERY 4 HOURS, 3 doses, First dose on Tue11/02/23 at 0900, Last dose on Tue11/02/23 at 1700, Administer over 4 Hours, *10 mMol potassium phosphate contains 14.7 mEq potassium *15 mMol potassium phosphate contains 22 mEq potassium New Bag 11/02/2023 5:00 PM EDT 15 mmol 62.5 mL/hr New Bag 11/02/2023 1:50 PM EDT 15 mmol 62.5 mL/hr New Bag 11/02/2023 9:00 AM EDT 15 mmol 62.5 mL/hr sodium chloride 0.9 % (flush) (BD PosiFlush Normal Saline 0.9) flush 5 mL 5 mL, Intravenous, 2 TIMES DAILY, First dose on Tue10/30/23 at 2300, Until Discontinued, Routine Given 11/03/2023 8:20 AM EDT 5 mLs Given 11/02/2023 8:13 PM EDT 5 mLs Given 11/02/2023 9:00 AM EDT 5 mLs sodium chloride 0.9% infusion 150 mL/hr, Intravenous, CONTINUOUS, Starting on Tue10/30/23 at 2045, Until Tue10/31/23 at 0244, Recovery (Recovery-Hospital Unit) New Bag 10/30/2023 8:26 PM EDT 150 mL/hr 150 mL /hr sodium chloride 0.9% infusion 100 mL/hr, Intravenous, CONTINUOUS, Starting on Tue11/01/23 at 1545, Until Tue11/01/23 at 1844, Recovery (Recovery-Hospital Unit) Continued Bag 11/01/2023 3:30 PM EDT 100 mL/hr 100 mL/hr spironolactone (Aldactone) tablet 12.5 mg 12.5 mg, Oral, DAILY, First dose on Tue11/01/23 at 1045, Until Discontinued, DO NOT SPLIT, CRUSH OR OPEN, Routine Given 11/01/2023 11:07 AM EDT 12.5 mg spironolactone (Aldactone) tablet 25 mg 25 mg, Oral, DAILY, First dose (after last modification) on Tue11/02/23 at 1000, Until Discontinued, DO NOT SPLIT, CRUSH OR OPEN, Routine Given 11/03/2023 8:17 AM EDT 25 mg Given 11/02/2023 9:37 AM EDT 25 mg documented in this encounter Active and Recently Administered Medications Times are shown in EDT. Scheduled Medication Order 11/01/2023 11/02/2023 11/03/2023 acetaminophen (Tylenol) tablet 975 mg (COMPLETED) 975 mg, Oral, ONCE, 1 dose, On Tue11/02/23 at 0000, Maximum dose of acetaminophen is 4,000 mg from all sources in 24 hours. When ordered for pain, acetaminophen should be given even when other ordered pain medications are indicated., Routine 0225 (Given - Provider: Danica Shipley, TANESHA) aspirin EC tablet 81 mg (CANCELED) 81 mg, Oral, DAILY, First dose on Tue10/31/23 at 0900, Until Discontinued, Recovery (Recovery-Hospital Unit), Routine 0939 (Given - Provider: Mary Sweeney, TANESHA) aspirin EC tablet 81 mg 81 mg, Oral, DAILY, First dose on Tue11/02/23 at 0900, Until Discontinued, Recovery (Recovery-Hospital Unit), Routine 0937 (Given - Provider: Mary Sweeney RN) 0816 (Given - Provider: Lucretia Thurman, TANESHA) atorvastatin (Lipitor) tablet 80 mg 80 mg, Oral, EVERY EVENING, First dose on Tue10/30/23 at 2245, Until Discontinued, Routine 1333 (AUG Hold - Provider: Admin Adt - Reason: Transfer to a Procedural area)1548 (AUG Unhold - Provider: Admin Adt)1848 (Given - Provider: Mary Sweeney, TANESHA)2019 (Given - Provider: Danica Shiplye RN) 1730 (Given - Provider: Mary Sweeney RN) 1621 (Given - Provider: Moshe Pope RN) cefPODOXime (Vantin) tablet 200 mg 200 mg, Oral, 2 TIMES DAILY, First dose on Amna 11/03/23 at 1030, Until Discontinued, Routine, Indication for (Active or Suspected): Urinary Tract/Pyelonephritis 1020 (Given - Provider: Lucretia Thurman, TANESHA) cefTRIAXone (Rocephin) 1 g vial attach to sodium chloride 0.9% 50 mL Mini-Bag Plus (CANCELED) 1 g, Intravenous, EVERY 24 HOURS, First dose on Tue11/02/23 at 1415, Until Discontinued, Administer over 30 Minutes, Indication for (Active or Suspected): Urinary Tract/Pyelonephritis 1516 (New Bag - Provider: Mary Sweeney RN)1546 (Stopped - Provider: Mary Sweeney RN) clopidogreL (Plavix) tablet 75 mg (CANCELED) 75 mg, Oral, DAILY, First dose on Tue10/31/23 at 0900, Until Discontinued, Recovery (Recovery-Hospital Unit), Routine 0939 (Given - Provider: Mary Sweeney RN) clopidogreL (Plavix) tablet 75 mg 75 mg, Oral, DAILY, First dose on Tue11/02/23 at 0900, Until Discontinued, Recovery (Recovery-Hospital Unit), Routine 0937 (Given - Provider: Mary Sweeney RN) 0817 (Given - Provider: Lucretia Thurman, TANESHA) heparin (porcine) (5,000 units/1 mL) subcutaneous injection 5,000 Units 5,000 Units, Subcutaneous, EVERY 8 HOURS SCHEDULED, First dose on Tue10/30/23 at 2300, Until Discontinued, Routine 0526 (Given - Provider: Danica Shipley RN)1333 (MAR Hold - Provider: Admin Adt - Reason: Transfer to a Procedural area)1548 (MAR Unhold - Provider: Admin Adt)1845 (Not Given - Provider: Mary Sweeney RN - Reason: Contraindicated - Comment: PT still bleeding for fem site)2200 (Hold - Provider: Danica Shipley RN - Reason: See comment - Comment: L groin bleeding) 0529 (Given - Provider: Danica Shipley RN)1516 (Given - Provider: Mary Sweeney RN)2014 (Given - Provider: Danica Shipley RN) 0607 (Given - Provider: Danica Shipley RN)1338 (Given - Provider: Lucretia Thurman, TANESHA) hydrALAZINE (Apresoline) tablet 10 mg (CANCELED) 10 mg, Oral, 3 TIMES DAILY, First dose (after last modification) on Tue10/31/23 at 1815, Until Discontinued, Take with Food, Routine 0939 (Given - Provider: Mary Sweeney RN)1333 (MAR Hold - Provider: Admin Adt - Reason: Transfer to a Procedural area)1500 (Automatically Held - Provider: Admin Adt)1548 (MAR Unhold - Provider: Admin Adt)1848 (Given - Provider: Mary Sweeney, TANESHA)2019 (Given - Provider: Danica Shipley, RN) 0937 (Given - Provider: Mary Sweeney RN) lidocaine (Lidoderm) 5% patch 1 patch 1 patch, Transdermal, Administer over 12 Hours, EVERY 24 HOURS, First dose on Tue11/02/23 at 1445, Until Discontinued, Apply patch(es) for 12 hours, and then remove for [address] on patients upper left back where she has pain., Routine 1445 (Patch Applied - Provider: Mary Sweeney, TANESHA) 0245 (Patch Removed - Provider: Danica Shipley, RN)1435 (Patch Applied - Provider: Moshe Pope RN)1713 (Due: Patch Removed - Provider: Automatic Discharge Provider - Comment: Time automatically adjusted from order being discontinued) losartan (Cozaar) tablet 50 mg 50 mg, Oral, DAILY, First dose on Tue11/02/23 at 1030, Until Discontinued, Routine 0937 (Given - Provider: Mary Sweeney RN) 0817 (Given - Provider: Lucretia Thurman, TANESHA) magnesium sulfate 1 g in dextrose 5% 100 mL infusion (COMPLETED) 1 g, Intravenous, ONCE, 1 dose, On Tue11/01/23 at 1045, Administer over 60 Minutes 1107 (New Bag - Provider: Mary Sweeney RN)1207 (Stopped - Provider: Mary Sweeney RN) magnesium sulfate 1 g in dextrose 5% 100 mL infusion (COMPLETED) 1 g, Intravenous, ONCE, 1 dose, On Tue11/03/23 at 0900, Administer over 60 Minutes 0825 (New Bag - Provider: Lucretia Thurman, TANESHA)0925 (Stopped - Provider: Lucretia Thurman RN) metoprolol succinate XL (Toprol-XL) tablet 12.5 mg 12.5 mg, Oral, DAILY, First dose (after last modification) on Tue11/03/23 at 1015, Until Discontinued, DO NOT CRUSH OR OPEN, Routine 1020 (Given - Provider: Lucretia Thurman RN) potassium chloride ER (Klor-Con M) crystal tablet 40 mEq (COMPLETED) 40 mEq, Oral, ONCE, 1 dose, On Tue11/01/23 at 1045, potassium chloride ER particle/crystal tablets (Klor-Con M) may be broken in half and each half swallowed separately. Tablets can be dissolved in ~4 ounces of water; allow ~2 minutes to dissolve, stir well and drink immediately. Do not crush, chew, or suck on tablet., Routine 1107 (Given - Provider: Mary Sweeney RN) potassium phosphate 15 mMol in sodium chloride 0.9% 250 mL infusion (COMPLETED) 15 mmol, Intravenous, EVERY 4 HOURS, 3 doses, First dose on Tue11/02/23 at 0900, Last dose on Tue11/02/23 at 1700, Administer over 4 Hours, *10 mMol potassium phosphate contains 14.7 mEq potassium *15 mMol potassium phosphate contains 22 mEq potassium 0900 (New Bag - Provider: Mary Sweeney RN)1259 (Stopped - Provider: Lolly Leblanc, TANESHA)1350 (New Bag - Provider: Lolly Leblanc, RN)1659 (Stopped - Provider: Mary Sweeney, TANESHA)1700 (New Bag - Provider: Mary Sweeney RN)2100 (Stopped - Provider: Danica Shipley RN) sodium chloride 0.9 % (flush) (BD PosiFlush Normal Saline 0.9) flush 5 mL 5 mL, Intravenous, 2 TIMES DAILY, First dose on Tue10/30/23 at 2300, Until Discontinued, Routine 0900 (Given - Provider: Mary Sweeney RN)1333 (AUG Hold - Provider: Admin Adt - Reason: Transfer to a Procedural area)1548 (AUG Unhold - Provider: Admin Adt)2018 (Given - Provider: Danica Shipley, TANESHA) 0900 (Given - Provider: Mary Sweeney RN)2012 (Given - Provider: Danica Shipley RN) 0820 (Given - Provider: Lucretia Thurman, TANESHA) spironolactone (Aldactone) tablet 12.5 mg (CANCELED) 12.5 mg, Oral, DAILY, First dose on Tue11/01/23 at 1045, Until Discontinued, DO NOT SPLIT, CRUSH OR OPEN, Routine 1107 (Given - Provider: Mary Sweeney, TANESHA)1333 (AUG Hold - Provider: Admin Adt - Reason: Transfer to a Procedural area)1548 (AUG Unhold - Provider: Admin Adt) spironolactone (Aldactone) tablet 25 mg 25 mg, Oral, DAILY, First dose (after last modification) on Tue11/02/23 at 1000, Until Discontinued, DO NOT SPLIT, CRUSH OR OPEN, Routine 0937 (Given - Provider: Mary Sweeney, TANESHA) 0817 (Given - Provider: Lucretia Thurman, TANESHA) Continuous Medication Order 11/01/2023 11/02/2023 11/03/2023 sodium chloride 0.9% infusion () 100 mL/hr, Intravenous, CONTINUOUS, Starting on Tue11/01/23 at 1545, Until Tue11/01/23 at 1844, Recovery (Recovery-Hospital Unit) 1530 (Continued Bag - Provider: Agnes Love RN) PRN Medication Order 11/01/2023 11/02/2023 11/03/2023 acetaminophen (Tylenol) tablet 650 mg 650 mg, Oral, EVERY 6 HOURS PRN, Starting on 10/31/23 at 2343, Until Amna 11/03/23 at 1913, Pain, Headaches, Maximum dose of acetaminophen is 4,000 mg from all sources in 24 hours. When ordered for pain, acetaminophen should be given even when other ordered pain medications are indicated., Routine 1144 (Given - Provider: Mary Sweeney RN)1333 (AUG Hold - Provider: Admin Adt - Reason: Transfer to a Procedural area)1548 (MAR Unhold - Provider: Admin Adt) fentaNYL (pf) (50 mcg/mL) multi-dose injection (CANCELED) PRN, Starting on Tue11/01/23 at 1346, Until Tue11/01/23 at 1548, Intra-Operative (Intra-Procedure), Routine 1346 (Given - Provider: Jason Jimenes RN)1455 (Given - Provider: Jean Oliveira RN) heparin (porcine) (1,000 units/mL) injection (CANCELED) PRN, Starting on Tue11/01/23 at 1359, Until Tue11/01/23 at 1548, Intra-Operative (Intra-Procedure), Routine 1359 (Given - Provider: Jean Oliveira, TANESHA)1414 (Given - Provider: Parisa Kowalski RN)1439 (Given - Provider: Jean Oliveira RN) hydrALAZINE (Apresoline) (20 mg/mL) injection 10 mg 10 mg, Intravenous, EVERY 4 HOURS PRN, Starting on Tue11/01/23 at 1620, Until Amna 11/03/23 at 1913, High Blood Pressure 1628 (Given - Provider: Omaira Concepcion RN) iohexoL (Omnipaque) (350 mg/mL) solution (CANCELED) PRN, Starting on Tue11/01/23 at 1504, Until Tue11/01/23 at 1548, Intra-Operative (Intra-Procedure), Routine 1504 (Given - Provider: Rosa Cornejo MD) lidocaine (Xylocaine) 1% (10 mg/mL) injection 3 mg 3 mg (0.3 mL), Subcutaneous, ONCE PRN, 1 dose, Starting on Tue10/30/23 at 2208, Until Amna 11/03/23 at 1913, for discomfort with PIV insertion, Routine 1333 (AUG Hold - Provider: Admin Adt - Reason: Transfer to a Procedural area)1548 (AUG Unhold - Provider: Admin Adt) midazolam (pf) (Versed) (1 mg/mL) multi-dose injection (CANCELED) PRN, Starting on Tue11/01/23 at 1346, Until Tue11/01/23 at 1548, Intra-Operative (Intra-Procedure), Routine 1346 (Given - Provider: Jason Jimenes RN) nitroGLYcerin (Nitrostat) disintegrating tablet 0.4 mg 0.4 mg, Sublingual, EVERY 5 MIN PRN, Starting on 10/30/23 at 2208, Until Amna 11/03/23 at 1913, Chest pain, May repeat every 5 minutes for a total of three doses. Notify provider if chest pain not relieved with nitroglycerin. Do not administer nitroglycerin if the patient has received or taken phosphodiesterase (PDE-5) inhibitors such as sildenafil, tadalafil or vardenafil within the last 24 to 72 hours., Routine 1333 ([facility] Hold - Provider: Admin Adt - Reason: Transfer to a Procedural area)1548 ([facility] Unhold - Provider: Admin Adt) sodium chloride 0.9 % (flush) (BD PosiFlush Normal Saline 0.9) flush 5-20 mL 5-20 mL, Intravenous, EVERY 1 MIN PRN, Starting on 10/30/23 at 2208, Until Amna 11/03/23 at 1913, flush, Flush pertains to all indwelling lines. Flush per protocol found in the job aid using the link provided on this medication record., Routine 1333 ([facility] Hold - Provider: Admin Adt - Reason: Transfer to a Procedural area)1548 ([facility] Unhold - Provider: Admin Adt) documented in this encounter Additional Health Concerns Infection Onset Date Last Indicated Resolved Time Rule Out Respiratory 11/02/2023 11/02/2023 024 12:22 PM EDT Rule Out COVID-19 11/02/2023 11/02/2023 11/02/2023 12:22 PM EDT documented as of this encounter Care Teams Rn Traveling Relationship Specialty Start Date End Date Rosie Mathews MD [address] [place] [address] PCP - General Family Medicine 11/25/17 11/23/23 documented as of this encounter
--- OUTSIDE RECORDS SUMMARY | 2024-01-27 11:16 | XMS_ITS | Encounter Summary ---
Author Organization [facility] Address [facility] [place] [address] Care Team Providers Care Camp Program Director Name Role Phone Rosie Mathews MD Primary Care Provider [phone] Reason for Visit * Reason Onset Date Comments Referral 11/03/2023 Coronary Artery Disease 11/03/2023 Encounter Details Date Type Department Care Team (Late st Contact Info) Description 11/03/2023 Telephone Cardiology at [address] [phone] Andressa Machado, cargoman; Coronary Artery Disease Social History Tobacco Use Types Packs/Day Years Used Date Smoking Tobacco: Former Smokeless Tobacco: Never Alcohol Use Standard Drinks/Week Comments Not Currently 0 (1 standard drink = 0.6 oz pur e alcohol) [facility] Utilities Answer Date Recorded In the past 12 months has e [employer], gas, oil, or water [employer] threatened to shut off services in your [...] place to sleep or slept in a fci (including now)? No 11/01/2023 IPV Inpatient Questions Answer Date Recorded Does [...] on file documented as of this encounter Miscellaneous Notes * Telephone Encounter - Andressa Machado RN - 11/03/2023 2:01 PM EDT Images from the original note were not included. [facility] [address] [place] [id number] Lyla was referred to this Cardiology clinic in [place] for post cardiac cath 10/31 for STEMI follow up as part of her discharge plan from [facility].. documented in this encounter Plan of Treatment Upcoming Encounters Date Type Department Care Team (Late st Contact Info) Description 03/29/2024 11:20 AM EDT Office Visit Cardiology at [address] [place] [phone] Izaiah Meyer MD [facility] [place] [address] documented as of this encounter Visit Diagnoses Not on filedocumented in this encounter Care Teams Camp Program Director Relationship Specialty Start Date End Date Rosie Mathews MD [address] [place] [address] PCP - General Family Medicine 11/25/17 11/23/23 documented as of this encounter
--- OUTSIDE RECORDS SUMMARY | 2024-01-27 11:16 | XMS_ITS | Encounter Summary ---
Author Organization [facility] Address [facility] [place] [address] Care Team Providers Care Patent Solicitor Name Role Phone Rosie Mathews MD Primary Care Provider [phone] Encounter Details Date Type Department Care Team (Late st Contact Info) Description 11/18/2023 Telephone Cardiology at [address] [phone] Cheryl Guzman MD [facility] [place] [address] Social History Tobacco Use Types Packs/Day Years Used Date Smoking Tobacco: Former Smokeless Tobacco: Never Alcohol Use Standard Drinks/Week Comments Not Currently 0 (1 standard drink = 0.6 oz pur e alcohol) [facility] Utilities Answer Date Recorded In the past 12 months has e electric, gas, oil, or water [employer] threatened to shut off services in your [...] encounter Miscellaneous Notes * Telephone Encounter - Cheryl Guzman MD - 11/18/2023 6:25 PM EDT Images from the original note were not included. 11/18/2023 Lyla Goodrich Initial Contact Date: 11/18/2023 Initial contact time: 6:25 PM Referring Provider: Radu Giron MD Patient Location: ED, [facility] Past Medical History: HTN HLD NSTEMI ([facility] 11/02, status-post revasc) Presenting Symptoms per OSH: Lyla Goodrich is a 83 y.o. woman who presents to [facility] with an episode of chest pain. Recent admission to [facility] with NSTEMI status-post PCI to the prox-RCA (10/29) with staged PCI to the Lcx/OM (10/31). In the ED she has been HDS, with mild HTN, intermittent salvos of sinus tach (up to 110 at most; had this while inpatient also). No recurrence of pain since presenting. ECG is similar to discharge (11/01). Troponins are negative x2 (high sensitivity assay). No pleurisy. Bedside TTE with normal squeeze, no effusion. No pleuritic pain. Has been compliant with her DAPT. Most recent vitals: 44- 98 - 174/62 - 15 - 36.8 EK11/02/23 NSR inferolateral TWI, ECG today similar Plan: Lyla Goodrich is a 83 y.o. woman who presents with an episode of chest pain after recent dischargefor NSTEMI. Negative troponins x2 and no recurrence of pain. Unfortunately she had negative troponins by outside assay during her index presentation, so unclear how to interpret today's values. RCA was described as a TOPOGRAPHIC COMPUTATOR. Recommend admission for observation to assess for recurrence, continue current DAPT. Optimize BP. If recurrence, will accept in transfer, consider repeat cath. Above recommendations were based on my discussion with the outside provider; I have not personally interviewed or examined this patient. Advised to call the transfer center back with any changes in the patient condition. Cheryl Guzman MD Cardiology PGY 6 11/18/2023 documented in this encounter Plan of Treatment Upcoming Encounters Date Type Department Care Team (Late st Contact Info) Description 03/29/2024 11:20 AM EDT Office Visit Cardiology at [address] [phone] Izaiah Meyer MD [facility] [place] [address] documented as of this encounter Visit Diagnoses Not on filedocumented in this encounter Care Teams Patent Solicitor Relationship Specialty Start Date End Date Rosie Mathews MD [address] [place] [address] PCP - General Family Medicine 11/25/17 11/23/23 documented as of this encounter
--- OUTSIDE RECORDS SUMMARY | 2024-01-27 11:16 | XMS_ITS | Encounter Summary ---
Author Organization [facility] Address [facility] [place] [address] Care Team Providers Care Cleaner Industrial Name Role Phone Masood Pierson MD Primary Care Provider [phone] Encounter Details Date Type Department Care Team (Late st Contact Info) Description 12/16/2023 Telephone Cardiology at [address] [place] [address] Izaiah Meyer MD [facility] [place] [address] Social History Tobacco Use Types Packs/Day Years Used Date Smoking Tobacco: Former Smokeless Tobacco: Never Alcohol Use Standard Drinks/Week Comments Not Currently 0 (1 standard drink = 0.6 oz pur e alcohol) [facility] Utilities Answer Date Recorded In the past 12 months has [employer] electric, gas, oil, or water [employer] threatened to shut off services in your [...] to sleep or slept in a senior living (including now)? No 11/01/2023 DH IPV Inpatient [...] encounter Miscellaneous Notes * Telephone Encounter - Madeline Dias RN - 12/19/2023 1:[address] Meyer: As long as asymptomatic and HR increased normally (which it appears it did), no changes recommendedat this time * Telephone Encounter - Madeline Dias RN - 12/16/2023 11:25 AM EDT Denise, [facility] Cardiac school laboratory technician, called to report that at today's session patient had variable heart rate ranging from 42 to 100. Patient completely asymptomatic. PAC's noted during session, but not during time frame of heart rate of 42. Denise is sending over copy of today's session report along with ecg strips. (Which will be scanned once received). Patient has a follow up scheduled in March. Her resting heart rate at her NPW visit on 11/24/23 was 51. documented in this encounter Plan of Treatment Upcoming Encounters Date Type Department Care Team (Late st Contact Info) Description 03/29/2024 11:20 AM EDT Office Visit Cardiology at [address] [place] [address] Izaiah Meyer MD [facility] [place] [address] documented as of this encounter Visit Diagnoses Not on filedocumented in this encounter Care Teams Cleaner Industrial Relationship Specialty Start Date End Date Masood Pierson MD [address] [place] [address] PCP - General Family Medicine 11/24/23 documented as of this encounter
--- OUTSIDE RECORDS SUMMARY | 2024-01-27 11:16 | XMS_ITS | Encounter Summary ---
Author Organization [facility] Address [facility] [place] [address] Care Team Providers Care Pipeline Dispatch Operator Name Role Phone Masood Pierson MD Primary Care Provider Reason for Visit * Reason Comments Establish Care Coronary Artery Disease Encounter Details Date Type Department Care Team (Latest Contact Info) Description 11/24/2023 10:40 AM EDT Office Visit Cardiology at [address] [place] [address] Izaiah Meyer MD [facility] [place] [address] [place] [address] ASCVD (arteriosclerotic cardiovascular disease); Cardiomyopathy, ischemic; Ascending aorta dilatation; Hyperpiesia Social History Tobacco Use Types Packs/Day Years Used Date Smoking Tobacco: Former Smokeless Tobacco: Never Alcohol Use Standard Drinks/Week Comments Not Currently 0 (1 standard drink = 0.6 oz pur e alcohol) [facility] Utilities Answer Date Recorded In the [...] place to sleep or slept in a halfway (including now)? No 11/01/2023 DH IPV Inpatient [...] Pulse 51 11/24/2023 11:03 AM EDT Temperature - - Respiratory Rate - - Oxygen Saturation - - Inhaled Oxygen Concentration - - Weight 68.5 kg (151 lb) 11/24/2023 11:03 AM EDT Height 152.4 cm (5') 11/24/2023 11:03 AM EDT Body Mass Index 29.49 11/24/2023 11:03 AM EDT documented in this encounter Progress Notes * Izaiah Meyer MD - 11/24/2023 10:40 AM EDT Images from the original note were not included. CARDIOLOGY NEW OUTPATIENT PRIMARY CARE PROVIDER: Masood Pierson MD PROBLEM LIST: Patient Active Problem List Diagnosis Cardiomyopathy, ischemic 10/2023 (at time of NSTE-ACS): EF 64%, basal inferior HK. No VHD Ascending aorta dilatation 10/2023 TTE: ascending 46 mm. Hyperpiesia ASCVD (arteriosclerotic cardiovascular disease) Cardiac Catheterization: (10/2023) RIGHT dominance Indication: NSTE-ACS LVEDP 15 Artery Lesion Intervention LM mild LAD mild LCx Prox 60 Mid 80 3.5 x 15 Rubicon 3.5 x 15 Andrea RCA Mid AoCTO. Collats from Cx 4.0 x 38 Andrea NB: RCA initially intervened; Cx 2 days later MEDICATIONS: Current Outpatient Medications Medication Instructions ASCORBIC ACID (VITAMIN C ORAL) aspirin EC 81 mg, Oral, DAILY atorvastatin (LIPITOR) 80 mg, Oral, EVERY EVENING CALCIUM ORAL CIS Free Text Med - vitamin b 125 complex clopidogreL (PLAVIX) 75 mg, Oral, DAILY CYANOCOBALAMIN, VITAMIN B-12, (VITAMIN B-12 ORAL) losartan (COZAAR) 50 mg, Oral, DAILY metoprolol succinate XL (TOPROL-XL) 12.5 mg, Oral, DAILY nitroGLYcerin (NITROSTAT) 0.4 mg, Sublingual, EVERY 5 MIN PRN oxyBUTYnin (DITROPAN) 5 mg, Oral spironolactone (ALDACTONE) 25 mg, Oral, DAILY Subjective: Patient ID: Lyla Goodrich is a 83 y.o. female. HPI: 83 f presents to [facility] cardiovascular care. She has a recent history of ACS, as per problem list. She presents to attention because she did not feel well, having back pain and her arms felt heavy. She did not have chest pain nor untoward dyspnea. She has a history of back and neck pain, and over the weekend of presentation it was particularly significant. When she presented to OSH SBP was in the 210s. Since discharge, she states the LBP and arm heaviness have not changed. She is without angina nor new exertional symptomatology. Looking forward to PT and cardiac rehab. [facility] very well controlled at home No bleeding on compliant dapt Objective: Patient Vitals for the past 24 hrs: Pulse BP 11/24/23 1103 51 126/76 Gen: pleasant female in NAD Cor: rrr, s1/s2 of nl character and amplitude, no pathologic m/r/g. Estimated RAP not elevated. Carotids without bruit. RRA cath site without issue Pulm: CTAB. Normal diaphragmatic movement without use of accessory muscles EKG: sb via 1* AVNB 51, nsttw TTE: reviewed, as per problem list Assessment and Plan: ASCVD (arteriosclerotic cardiovascular disease) No angina per history. In retrospect, being that none of her presenting symptoms improve and she has no improvement in exerttion, I think the cath findings were predominantly chronic, only developingacuity (in both thrombus and clinical realms) due to the hypertension on presentation. She can resume typical activities. - Anti-Thrombosis: asa 81, plavix 75. The latter through 10/2024 - Anti- Lipemic: lipitor 80 - Anti- Anginals: GTN PRN, toprol 12.5 Cardiomyopathy, ischemic No failure by history nor exam. - Diuresis: none - Cardioprotection: as directed for HTN Hyperpiesia Very well controlled - losartan 50 - aldactone 25 RTC 4 months Izaiah Meyer MD documented in this encounter Miscellaneous Notes * Assessment & Plan Note - Izaiah Meyer MD - 11/24/2023 1:19 PM EDT Associated Problem(s): Hyperpiesia Very well controlled - losartan 50 - aldactone 25 * Assessment & Plan Note - Izaiah Meyer MD - 11/24/2023 1:19 PM EDT Associated Problem(s): Cardiomyopathy, ischemic No failure by history nor exam. - Diuresis: none - Cardioprotection: as directed for HTN * Assessment & Plan Note - Izaiah Meyer MD - 11/24/2023 1:18 PM EDT Associated Problem(s): ASCVD (arteriosclerotic cardiovascular disease) No angina per history. In retrospect, being that none of her presenting symptoms improve and she has no improvement in exerttion, I think the cath findings were predominantly chronic, only developingacuity (in both thrombus and clinical realms) due to the hypertension on presentation. She can resume typical activities. - Anti-Thrombosis: asa 81, plavix 75. The latter through 10/2024 - Anti- Lipemic: lipitor 80 - Anti- Anginals: GTN PRN, toprol 12.5 documented in this encounter Plan of Treatment Upcoming Encounters Date Type Department Care Team (Late st Contact Info) Description 03/29/2024 11:20 AM EDT Office Visit Cardiology at [address] [place] [id number] Izaiah Meyer MD [facility] [place] [address] documented as of this encounter Visit Diagnoses Diagnosis ASCVD (arteriosclerotic cardiovascular disease) Unspecified cardiovascular disease Cardiomyopathy, ischemic Other specified forms of chronic ischemic heart disease Ascending aorta dilatation Thoracic aortic ectasia Hyperpiesia Unspecified essential hypertension documented in this encounter Care Teams Pipeline Dispatch Operator Relationship Specialty Start Date End Date Masood Pierson MD [address] [place] [address] PCP - General Family Medicine 11/24/23 documented as of this encounter
--- OUTSIDE RECORDS SUMMARY | 2024-01-27 11:16 | XMS_ITS | Encounter Summary ---
Author Organization [facility] Address [facility] [place] [address] Care Team Providers Care Plastic Tile Layer Name Role Phone Masood Pierson MD Primary Care Provider [phone] Encounter Details Date Type Department Care Team (Latest Contact Info) Description 11/24/2023 Travel Social History Tobacco Use Types Packs/Day Years Used Date Smoking Tobacco: Former Smokeless Tobacco: Never Alcohol Use Standard Drinks/Week Comments Not Currently 0 (1 standard drink = 0.6 oz pur e alcohol) [facility] Utilities Answer Date Recorded In the past 12 months has th e electric, gas, oil, or water company [...] place to sleep or slept in a half-way (including now)? No 11/01/2023 DH IPV Inpatient [...] 11:20 AM EDT Office Visit Cardiology at [address] [address] Izaiah Meyer MD [facility] [place] [address] documented as of this encounter Visit Diagnoses Not on filedocumented in this encounter Care Teams Plastic Tile Layer Relationship Specialty Start Date End Date Masood Pierson MD [address] [place] [address] PCP - General Family Medicine 11/24/23 documented as of this encounter
--- OUTSIDE RECORDS SUMMARY | 2024-01-27 11:17 | XMS_ITS | Encounter Summary ---
Author Organization [facility] [place] [address] Care Team Providers Care Instructor Kindergarten Name Role Phone Rosie Mathews MD Primary Care Provider [phone] Reason for Visit * Auth/Cert (Routine) Specialty Diagnoses / Procedures Referred By Contac t Referred To Contact Diagnoses Unstable angina Procedures [facility] [employer] [facility] Referral ID Status Reason Start Date Expiration Date Visits Re quested Visits Authorized [id number] 1 1 Encounter Details Date Type Department Care Team (Latest Contact Info) Description 10/30/2023 5:00 PM EDT - 10/30/2023 5:10 PM EDT Hospital Encounter [facility] [place] [phone] Rosa Menjivar MD [facility] [place] [address] Discharge Disposition: Home Social History Tobacco Use Types Packs/Day Years Used Date Smoking Tobacco: Former Smokeless Tobacco: Never Alcohol Use Standard Drinks/Week Comments Not Currently 0 (1 standard drink = 0.6 oz pur e alcohol) [facility] Inpatient Questions Answer Date Recorded Does Anyone [...] on file documented as of this encounter Medications at Time of Discharge [...] for 6 days. 12 tablet 11/03/2023 11/09/2023 VALSARTAN/HYDROCHLOROTH IAZIDE (DIOVAN HCT ORAL) 01/30/2008 11/03/2023 VITAMIN E ACETATE (VITAMIN E ORAL) 01/30/2008 11/03/2023 documented as of this encounter Plan of Treatment Upcoming Encounters Date Type Department Care Team (Late st Contact Info) Description 03/29/2024 11:20 AM EDT Office Visit Cardiology at [address] [place] [address] Izaiah Meyer MD [facility] [place] [address] documented as of this encounter Visit Diagnoses Not on filedocumented in this encounter Care Teams Instructor Kindergarten Relationship Specialty Start Date End Date Rosie Mathews MD [address] [place] [address] PCP - General Family Medicine 11/25/17 11/23/23 documented as of this encounter
--- OUTSIDE RECORDS SUMMARY | 2024-01-27 11:17 | XMS_ITS | Encounter Summary ---
Author Organization [facility] [place] [address] Care Team Providers Care Coagulating Bath Mixer Name Role Phone Rosie Mathews MD Primary Care Provider [phone] Encounter Details Date Type Department Care Team (Late st Contact Info) Description 10/30/2023 5:00 PM EDT Ancillary Procedure [place] [phone] Izaiah Meyer MD [facility] [place] [address] Social History Tobacco Use Types Packs/Day Years Used Date Smoking Tobacco: Former Smokeless Tobacco: Never Alcohol Use Standard Drinks/Week Comments Not Currently 0 (1 standard drink = 0.6 oz pur e alcohol) [facility] Inpatient Questions Answer Date Recorded Does Anyone [...] 11:20 AM EDT Office Visit Cardiology at [address] [place] [address] [facility] [place] [address] documented as of this encounter Procedures Procedure Name Priority Date/Time Associated Diagnosis Comments FILM LIBRARY STORAGE ONLY CT CHEST Routine 10/30/2023 4:59 PM EDT documented in this encounter Results * Film Library- Storage Only CT Chest (10/30/2023 4:59 PM EDT) Narrative [facility] 10/30/2023 4:59 PM EDT This exam is auto-finalizing. It's purpose is for storage only. Izaiah Meyer MD IMG FILM LIBRARY ORD ERABLES Performing Organization Address City/State/[facility] Co de Phone Number [place], [place] documented in this encounter Visit Diagnoses Not on filedocumented in this encounter Care Teams Coagulating Bath Mixer Relationship Specialty Start Date End Date Rosie Mathews MD [address] [place] [address] PCP - General Family Medicine 11/25/17 11/23/23 documented as of this encounter
--- OUTSIDE RECORDS SUMMARY | 2024-01-27 11:17 | XMS_ITS | Encounter Summary ---
Author Organization [facility] [place] [address] Care Team Providers Care Wire Repairer Name Role Phone Rosie Mathews MD Primary Care Provider [phone] Reason for Visit * Auth/Cert (Routine) Specialty Diagnoses / Procedures Referred By Contbruce t Referred To Contact Diagnoses Unstable angina Chest pain NSTEMI Procedures CARDIAC CATHETERIZATION Rosa Dewey MD [facility] [place] [address] [facility] Referral ID Status Reason Start Date Expiration Date Visits Re quested Visits Authorized [id number] 1 1 Encounter Details Date Type Department Care Team (Late st Contact Info) Description 11/01/2023 3:33 PM EDT - 11/01/2023 5:03 PM EDT Surgery [place] [address] Rosa Dewey MD [facility] [address] [place], [place] [id number] CARDIAC CATHETERIZATION Social History Tobacco Use Types Packs/Day Years Used Date Smoking Tobacco: Former Smokeless Tobacco: Never Alcohol Use Standard Drinks/Week Comments Not Currently 0 (1 standard drink = 0.6 oz pur e alcohol) [facility] Utilities Answer Date Recorded In the [...] place to sleep or slept in a longterm (including now)? No 11/01/2023 DH IPV Inpatient [...] Sign Reading Time Taken Comments Blood Pressure 153/73 11/01/2023 5:00 PM EDT Pulse 111 11/01/2023 5:00 PM EDT Temperature 36.9 ??C (98.4 ??F) 11/01/2023 11:55 AM E DT Respiratory Rate 16 11/01/2023 5:00 PM EDT Oxygen Saturation 96% 11/01/2023 5:00 PM EDT Inhaled Oxygen Concentration - - Weight 70.8 kg (156 lb 1.6 oz) 11/01/2023 12:57 AM EDT Height 162.6 cm (5' 4) [...] have started her on a low-dose beta rodrick, please continue to titrate as indicated. - [...] for hypertension and hyperlipidemia who presented to [facility] as a transfer from [facility] as a possible STEMI alert with acute onset chest pain. The patient reports that her symptoms initially began on Tuesday when she was walking to [facility] and experienced bilateral arm heaviness while walking with no other symptoms. Then, this afternoon shereports developing bilateral achy shoulder pain and nonradiating substernal left-sided chest pressure that was 7/10 in severity after coming home from [facility]. The patient denies any associated fevers, chills, diaphoresis, lightheadedness/dizziness, syncope/presyncope, dyspnea (either at rest or on exertion), palpitations, orthopnea, or PND. The patient subsequently presented to [facility] as a walk-in for further evaluation. [...] on repeat, her TRU resolved. Cardiology at [facility] was consulted for transfer; the patient was loaded with aspirin 324 mg and ticagrelor 180 mg, started on a heparin drip, and given nitroglycerin with improvement in chest pain. Upon arrival to [facility], the patient was taken directly to the Outdoor Recreation Specialist. Two lesions were discovered: one in the prox RCA (felt to almost be a MULTIPLE DRUM SANDER but they were able to wire, balloon, [...] Data: Admission Labs: Discharge Labs: Recent Labs 11/03/2334511/02/235 11/01/236 11/01/23 0309 10/31/23 0305 WBC 8.3 10.0* 10.4* 8.7 11.5* HGB 13.1 13.8 14.0 12.5 12.6 PLATELET 181 198 197 184 206 Recent Labs 11/03/2334511/02/23 0035 11/01/23 0309 10/31/23 0137 10/30/23 2205 NA 139 136 137 140 142 K 4.0 3.6 3.4* 3.9 3.9 CL 108* 102 105 107 105 CO2 19* 25 24 25 27 BUN 13 9 14 13 14 CREATININE 0.83 0.83 0.83 0.81 0.85 GLUCOSE 105 125 100 114 121 Recent Labs 11/03/2334511/02/23 0035 11/01/23 0309 CALCIUM 8.2* 9.0 8.6 MAGNESIUM 0.90 0.87 0.82 PHOS 3.2 1.6* 2.5 No results for input(s): CK, TROPONINT in the last 168 hours. Recent Labs 10/30/23 2205 AST 36* ALT 17 ALKPHOS 54 BILITOT 0.5 Recent Labs 10/31/23 0305 INR 1.1 Lab Results Component Value Date [...] dose administered prior to arrival in the radiographer cardiac catheterization. Recommended anti-platelet/anti-thrombotic regimen: Continue aspirin 81 mg [...] and low lung volumes. Findings similar to geological scout radiograph from CT 10/30/2023. Pending Studies and Lab Data: none Discharge Conditions/Prognosis: - ACS --> stable and well controlled with DAPT and beta-rodrick - UTI --> stable and well controlled [...] 10:40 AM Izaiah Meyer MD Cardiology at [place] Arrive at: [facility] [address] [phone] Future Orders Complete By Expires Referral to Cardiac Rehab [[id number] Custom] As directed Process Instructions: If no progress note charted, please enter Clinical details in comments. Scheduling Instructions: Questions: My question or request is: STEMI. Cardiac rehab at [facility]. Referral to Home Health [[id number] Custom] As directed Process Instructions: If no progress note charted, please enter Clinical details in comments. Scheduling Instructions: Comments: Please evaluate Adin Santos for admission to Home Health. [address] [facility] [address] (home) Date of : 1940 Inpatient DOCUMENTATION FOR VNA SERVICES (INCLUDING THOSE PATIENTS WITH MEDICARE COVERAGE REQUIRING HOME VNA SERVICES AND/OR HOSPICE SERVICES) PATIENT'S LOCATION: Adin Santos [address] [facility] [address] (home) Cell: Telephone Information: Senior Principal Software Engineer's Name: self In discussion with the attending physician, it is certified that this patient is under their care and that they, or a Nurse Practitioner, Clinical Nurse specialist or Physician Conditioner Tender who is working directly with them, had [...] regarding health issues HOME HEALTH CARE AGENCY: [facility] [address] [address] START OF CARE: within 24-48 hours of [...] Rosie Mathews MD [address] / [facility] [address] . All A agencies which cover [...] Rosie Mathews MD / Dr. Masood Pierson [address] [place] [address] 11/09/23 1:55 PM arrival for 2:10 PM appointment Ethics Instructor: Izaiah Meyer MD [address] [place] [address] , 11/24/2023 10:40 AM Your Inpatient Medical Team at [facility] Name(s) of your inpatient provider(s): Attending physician: Rosa Hugo MD Resident physicians: Emile Robles MD; Elmer Tamez MD If you have non-emergent questions, prior to your follow-up visit call: Tuesday-Tuesday between the hours of 8AM-5PM please call the Cardiology Clinic [phone] to speak with a nurse. All other hours please call the Hospital Fish Hatchery Specialist [phone] and ask to speak to the campus rep on-call. Your Primary Care Provider Rosie Mathews MD [phone] For questions regarding this document or issues relating to this hospitalization on the Medical Service, please contact your inpatient physician through the [facility] Fish Hatchery Specialist . Issues afterhours and on weekends will be handled by the Ethics Instructor staff on-call. Associated attestation - Rosa Hugo [...] Rosie Mathews MD / Dr. Masood Pierson [address] [place] [address] 11/09/23 1:55 PM arrival for 2:10 PM appointment Ethics Instructor: Izaiah Meyer MD [address] [place] [address] , 11/24/2023 10:40 AM Your Inpatient Medical Team at [facility] Name(s) of your inpatient provider(s): Attending physician: Rosa Hugo MD Resident physicians: Emile Robles MD; Elmer Tamez MD If you have non-emergent questions, prior to your follow-up visit call: Tuesday-Tuesday between the hours of 8AM-5PM please call the Cardiology Clinic [phone] to speak with a nurse. All other hours please call the Hospital Fish Hatchery Specialist [phone] and ask to speak to the campus rep on-call. Your Primary Care Provider Rosie Mathews MD [phone] documented in this encounter Medications at Time [...] for hypertension and hyperlipidemia who presented to [facility] as a transfer from [facility] as a possible STEMI alert with [...] for the past 168 hrs: Weight 11/02/23 0527 69.8 kg (153 lb 14.4 oz) 11/01/23 005 70.8 kg (156 lb 1.6 oz) 10/31/23 [...] for the past 168 hrs: Weight 11/02/23 0527 69.8 kg (153 lb 14.4 oz) 11/01/2356 70.8 kg (156 lb 1.6 oz) 10/31/23 [...] responsive. Without focal deficit Labs Recent Labs 11/02/233411/01/23220511/01/23308 WBC 10.0* 10.4* 8.7 HGB 13.8 14.0 12.5 HCT 39.8 41.1 36.8 PLATELET 198 197 184 Recent Labs 11/02/233411/01/2330810/31/23 013 NA 136 137 140 K 3.6 3.4* 3.9 CL 102 105 107 CO2 25 24 25 BUN 9 14 13 CREATININE 0.83 0.83 0.81 Recent Labs 10/30/232204 AST 36* ALT 17 ALKPHOS 54 BILITOT 0.5 Recent Labs 11/02/235 11/01/2330810/31/23 0137 CALCIUM 9.0 8.6 8.6 MAGNESIUM 0.87 0.82 0.83 PHOS 1.6* 2.5 3.2 Recent Labs 10/31/23 030 INR 1.1 PT 12.6* PTT 67* No [...] for hypertension and hyperlipidemia who presented to [facility] as a transfer from [facility] as a possible STEMI alert with [...] Resident on Cardiology Service Cardiology S1 (Pager [phone]) Note written in conjunction with Claudio Perla [facility] Medical Student, MS3 Associated attestation - [...] Nirmala Webb - 11/01/2023 11:25 AM EDT Cell Preparer Encounter Note Patient Name: Adin Santos : [id number] MR#: [id number] Admit Date: 10/30/2023 5:11 PM Hospital Day 2 days Narrative: Self initiated visit to patient for Spiritual support in a regular unit rounds. Assessment: Patient is in the bathroom at the time of this visit. Not a good time for Camp Recreation Specialist visit. Intervention and Outcome: An attempted visit [...] Adin Santos is a 83 y.o. female H significant for hypertension and hyperlipidemia who presented to [facility] as a transfer from [facility] as a possible STEMI alert with [...] 0057 70.8 kg (156 lb 1.6 oz) 10/31/23529 [...] responsive. Without focal deficit Labs Recent Labs 11/01/23 03010/31/2330410/31/23136 WBC 8.7 11.5* 10.6* HGB 12.5 12.6 13.0 HCT 36.8 37.1 37.9 PLATELET 184 206 204 Recent Labs 11/01/23 03010/31/2313610/30/23 220 NA 137 140 142 K 3.4* 3.9 3.9 CL 105 107 105 CO2 24 25 27 BUN 14 13 14 CREATININE 0.83 0.81 0.85 Recent Labs 10/30/23 2205 AST 36* ALT 17 ALKPHOS 54 BILITOT 0.5 Recent Labs 11/01/23 03010/31/23 01310/30/232204 CALCIUM 8.6 8.6 8.8 MAGNESIUM 0.82 0.83 0.86 PHOS 2.5 3.2 3.3 Recent Labs 10/31/23 030 INR 1.1 PT 12.6* PTT 67* No [...] and low lung volumes. Findings similar to geological scout radiograph from CT 10/30/2023. Scheduled Medications: [AUG Hold] spironolactone 12.5 mg Oral Daily [AUG Hold] hydrALAZINE 10 mg Oral TID aspirin EC 81 mg Oral Daily clopidogreL 75 mg Oral Daily [AUG Hold] atorvastatin 80 mg Oral QPM [MAR Hold] sodium chloride 0.9 % (flush) 5 mL Intravenous BID [AUG Hold] heparin (porcine) 5,000 Units Subcutaneous Q8H ERIC PRN Medications: midazolam (PF), fentaNYL (PF), heparin (porcine), [AUG Hold] acetaminophen, [AUG Hold] sodium chloride 0.9 % (flush), [MAR Hold] lidocaine, [AUG Hold] nitroGLYcerin Assessment/Plan: Adin Santos is a 83 y.o. female PMH significant for hypertension and hyperlipidemia who presented to [facility] as a transfer from [facility] as a possible STEMI alert with [...] mg daily - Plan to start beta rodrick tomorrow first dost given post cath, if [...] a break from contrast) - hold beta rodrick due to lower HR #Routine Diet: NPO diet (Give Meds) DVT Prophylaxis: Subcutaneous heparin GI Prophylaxis: Not applicable Code Status: Attempt Cardiopulmonary Resuscitation - Inpatient Dispo: Pending clinical course Elmer Tamez, PGY1 Resident on Cardiology Service Cardiology S1 (Pager [phone]) Note written in conjunction with Claudio Perla [facility] Medical Student, MS3 Associated attestation - Rosa Hguo MD - 11/01/2023 2:24 PM EDT I saw and evaluated the patient with the housestaff and agree with the assessment and plan documented below. 83 y.o. female with PMH HTN HLD presenting as STEMI. She is s/p prox RCA PCI and there is a plan for PCI to OM/LCx 10/31. On asa/plavix High intensity statin Will start beta rodrick if HR tolerates Rosa Hugo MD Advanced Heart Disease and Pulmonary Hypertension * Elmer Tamez MD - 10/31/2023 7:02 AM EDT Inpatient Cardiology Progress Note Patient Name: Adin Santos Date of Admission: 10/30/2023 ( Hospital Day 1 day ) Service: S1 ID: Adin Santos is a 83 y.o. female PMH significant for hypertension and hyperlipidemia who presented to [facility] as a transfer from [facility] as a possible STEMI alert with acute onset chest pain. Active Problems: Active Hospital Problems Diagnosis Unstable angina Resolved Hospital Problems No resolved problems to display. 24 hr events: - Cath'd yesterday with lesion in the proximal RCA (initially thought it was MULTIPLE DRUM SANDER but they were ableto wire, balloon and [...] Without focal deficit Labs Recent Labs 10/31/23 0305 10/31/2313610/30/232204 WBC 11.5* 10.6* 9.0 HGB 12.6 13.0 13.3 HCT 37.1 37.9 39.1 PLATELET 206 204 211 Recent Labs 10/31/2313610/30/232204 NA 140 142 K 3.9 3.9 CL 107 105 CO2 25 27 BUN 13 14 CREATININE 0.81 0.85 Recent Labs 10/30/232204 AST 36* ALT 17 ALKPHOS 54 BILITOT 0.5 Recent Labs 10/31/2313610/30/232204 CALCIUM 8.6 8.8 MAGNESIUM 0.83 0.86 PHOS [...] and low lung volumes. Findings similar to geological scout radiograph from CT 10/30/2023. TTE (10/30): Interpretation Summary -The left ventricle [...] for hypertension and hyperlipidemia who presented to [facility] as a transfer from [facility] as a possible STEMI alert with [...] the LCX/OM), we can begin a beta rodrick too. TTE was being completed this morning, [...] mg daily - Plan to start beta rodrick tomorrow first dost given post cath, if [...] a break from contrast) - hold beta rodrick due to lower HR #Routine Diet: NPO diet (Give Meds) DVT Prophylaxis: Subcutaneous heparin GI Prophylaxis: Not applicable Code Status: Attempt Cardiopulmonary Resuscitation - Inpatient Dispo: Pending clinical course Elmer Tamez, PGY1 Resident on Cardiology Service Cardiology S1 (Pager [phone]) Note written in conjunction with Claudio Perla [facility] Medical Student, MS3 Associated attestation - [...] afterload (hydral then ARB.) Will start beta rodrick if HR tolerates Rosa Hugo MD Advanced [...] in this encounter H&P Notes * Qamar Gallardo MD - 10/30/2023 8:55 PM EDT Images from the original note were not included. Cardiology H&P Patient info: Name: Adin Santos : 1940 PCP: Rosie Mathews MD PCP phone number: [phone] Date of Admission: 10/30/2023 ( Hospital Day 0 days ) Attending:Rosa Cornejo MD ID: Adin Santos is a 83 y.o. female PMH significant for hypertension and hyperlipidemia who presented to [facility] as a transfer from [facility] as a possible STEMI alert with acute onset chest pain. The patient reports that her symptoms initially began on Tuesday when she was walking to [facility] and experienced bilateral arm heaviness while walking with no other symptoms. Then, this afternoon shereports developing bilateral achy shoulder pain and nonradiating substernal left-sided chest pressure that was 7/10 in severity after coming home from [facility]. The patient denies any associated fevers, chills, diaphoresis, lightheadedness/dizziness, syncope/presyncope, dyspnea (either at rest or on exertion), palpitations, orthopnea, or PND. The patient subsequently presented to [facility] as a walk-in for further evaluation. [...] on repeat, her TRU resolved. Cardiology at [facility] was consulted for transfer; the patient was loaded with aspirin 324 mg and ticagrelor 180 mg, started on a heparin drip, and given nitroglycerin with improvement in chest pain. Upon arrival to [facility], the patient was taken directly to the Outdoor Recreation Specialist. 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 Findings similar to geological scout radiograph from CT 10/30/2023. Assessment & Plan: Adin Santos is a 83 y.o. female PMH significant for hypertension and hyperlipidemia who presented to [facility] as a transfer from [facility] as a possible STEMI alert with [...] 80 mg daily Plan to start beta rodrick tomorrow first dost given post cath Formal [...] with HTN HLD transferred with chest from [facility]. BP 217/68, HR [address] elevation. Trop 214-->457. Echo without WMA. C. 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 Additional circ lesion with plan for staged PCI today. Roas Hugo MD Advanced Heart Disease and Pulmonary [...] information for follow-up Home Health & H[facility]ice, [place] [address] TANESHA BOYCE confirmed with [facility] that they will see the patient within 24-48 hours of discharge for start of care. Transportation: family or friend will provide Wheelchair van/Ambulance? No Functional status prior to admission: Assistive Equipment Home Environment: Others in the home: alone. Current Living Arrangements: home/apartment/condo. Accessibility Concerns:1st floor apartment in correction community; handicapped accessible. Current Functional Ability: Assistive Equipment DME used at home: cane - straight, grab bar - tub/shower, grab bar - toilet, raised toilet seat DME Needed at Discharge: N/A Patient is insured through: Primary Insurance: [employer] MANAGED MEDICARE Payor: [employer] MANAGED MEDICARE / Plan: [employer] MANAGED MEDICARE PPO / Product Type: *No [...] in the room. Electrolytes replaced, see MAR. bottle label inspector sites remained C/D/I with baseline ecchymosis unchanged. Pt complained of back pain, lidocaine patch given. Right IV infiltrated during infusion, patient is marked with sharpie, IV removed. See flowsheet for I+O's and safety rounding. Patient is able to make needs known and call capps within reach. PLAN MOVING FORWARD: Monitor Tele, control BP, monitor radiographer cardiac catheterization sites, D/C Planning INDIVIDUALIZED FALL PREVENTION INTERVENTIONS: [...] in an outpatient cardiac rehabilitation program at [facility] was discussed. Patient agrees to [...] and above on RA. PT went to radiographer cardiac catheterization today. Left fem site oozed throughout shift, [...] MOVING FORWARD: Monitor Tele, control BP, monitor radiographer cardiac catheterization sites, D/C Planning INDIVIDUALIZED FALL PREVENTION INTERVENTIONS: [...] Admitted From: Transfer from another hospital Location: [facility] Reason for Hospitalization: chest pain Covid Vaccination Status: 1st, 2nd & booster Past medical History: No past medical history on file. Hospitalizations Within the Past 30 Days: no previous admission in last 30 days Current Decision-Making Capacity: Self If AD's have not been completed the following surrogate would be surrogate decision maker per [place] surrogate decision making law. (Only good for 180 days) Any patient receiving care in [place] must abide by [place] law. The hierarchy for surrogate decision making [...] (i) The agent with financial power of attorney lawyer or a conservator appointed in accordance with [...] Arrangements: home/apartment/condo. Accessibility Concerns:1st floor apartment in correction community; handicapped accessible. In the last 12 months, was there a time when you were not able to pay the mortgage or rent on time?: No In the last 12 months, how many places have you lived?: 1 In the last 12 months, was there a time when you did not have a steady place to sleep or slept in ashelter (including now)?: No In the past 12 months has the electric, gas, oil, or water [employer] threatened to shut off services in your [...] toilet seat Home Address confirmed as: [address] [facility] [address] Social & Family Supports: All names listed below confirmed with patient as current and correct Extended Emergency Contact Information Primary Emergency Contact: Iris Downing Address: [address] [place], [place] [id number] [place] [address] Mobile Relation: Child Secondary Emergency Contact: Karen More Address: [address] Mobile Relation: Child Current Care Provided by: self Provides Primary Care For: no one Caregiver if needed: child(emmanuel), adult Quality of Family relationships: involved, supportive Community Resources being provided currently: other (see comments) (receives [facility] services at home (1xweekly)) Behavioral Health History: [...] Specific Information: N/A Health/Prescription Coverage: Primary Insurance: [employer] MANAGED MEDICARE Payor: [employer] MANAGED MEDICARE / Plan: [employer] MANAGED MEDICARE PPO / Product Type: *No Product type* / Secondary Insurance: N/A Prescription Coverage: Yes Preferred Pharmacy: [id number] - [place], [place] - [address] [place] [address] Status: Patient is a : No Primary Care Provider listed: Masood Pierson MD [phone] Patient/Caregiver Goals of Treatment: home when MR Potential Needs for Transition of Care: home health care Agency Referrals: Not Applicable I have met with the patient to: discuss discharge planning needs. provide the [facility], Office of Care Management letter from the Commercial Solar Sales Consultant pertaining to rehab referrals. provide a letter describing our affiliations within the [facility] and educate about their right to choose where referrals are sent. provide a list of Home Health Agencies / Durable Medical Equipment vendors which serve their preferred geographic area. provided patient with [facility] Star Quality Rating handout. They have requested referrals to: [facility] [address] [place] [address] Note routed to a Pst Specialist who will communicate referrals to facilities and [...] results. PO hydralazine added for BP control. bottle label inspector sites remain C/D/I, ecchymosis unchanged th roughout shift. See flowsheet for I+O's and safety rounding. Patient is able to make needs known and call capps within reach. PLAN MOVING FORWARD: Monitor Tele, control CP and BP, NPO at MD for cath, monitor radiographer cardiac catheterization sites, D/C Planning INDIVIDUALIZED FALL PREVENTION INTERVENTIONS: [...] 11:20 AM EDT Office Visit Cardiology at [address] [place] [address] Izaiah Meyer MD [facility] [place] [address] Scheduled Referrals Name Type Priority Associated Diagnoses [...] 1:37 AM EDT DIFFERENTIAL, AUTOMATED Routine 10/31/19 24 1:37 AM EDT CBC (WITH DIFF) Routine [...] AUTOMATED STAT 10/30/19 24 10:05 PM EDT GREEN TUBE HOLD STAT [...] 3:46 AM EDT) Neutrophil % 63.3 % [facility] Neutrophil Absolute 5.28 1.70 - 6.10 x10(3)/mc L [facility] Lymph % 15.2 % [facility] Lymphocytes Abs 1.3 0.9 - 3.2 x10(3)/mc L [facility] Monocyte % 16.9 % [facility] Monocyte Abs 1.4(H) 0.3 - 0.9 x10(3)/mc L [facility] Eos % 3.7 % [facility] Eosinophils Abs 0.3 0.0 - 0.4 x10(3)/ L [facility] Basophil % 0.5 % [facility] Baso Absolute 0.0 0.0 - 0.1 x10(3)/mc L [facility] Immature Gran % 0.40 % [facility] Comment: Immature granulocytes(IG's)percentage and absolute count will include metamyelocytes, myelocytes, and promyelocytes. Blood smears from CBCs yielding IG's will be scanned manually for concordance. If this scan disagrees with the automated IG or if promyelocytes are noted, a manual differential will be performed. Immature Gran Absolute 0.03 0.00 - 0.04 x10(3)/mc L [facility] Blood 11/03/2023 3:46 AM EDT 11/03/2023 4:11 AM EDT Narrative Resulting Agency Comment Spec In Lab Qamar Gallardo MD HEMATOLOGY ORDERABLE S [facility] [place] [address] * (ABNORMAL) Hemogram (11/03/2023 3:46 AM EDT) White Blood Cell 8.3 4.0 - 9.5 x10(3)/mc L [facility] Red Blood Cell 3.77(L) 4.00 - 5.21 x10(6)/mc L [facility] Hemoglobin 13.1 11.7 - 15.5 g/dL [facility] Hematocrit 38.0 35.7 - 45.8 % [facility] Mean Cell Volume 100.8(H) 82.6 - 94.4 fL [facility] Mean Cell Hemoglobin 34.7(H) 27.1 - 32.0 pg [facility] Mean Cell Hemoglobin Concentration 34.5 31.7 - 35.0 g/dL [facility] Platelet 181 145 - 357 x10(3)/mc L [facility] RDW Standard Deviation 54.7(H) 37.0 - 46.0 fL [facility] RDW coefficient of variation 14.6(H) 11.5 - 14.1 % [facility] Mean Platelet Volume 11.2 7.6 - 12.9 fL [facility] NRBC% auto 0.0 % [facility] NRBC Absolute 0.000 0.000 - 0.000 x10(3)/mc L [facility] Blood 11/03/2023 3:46 AM EDT 11/03/2023 4:11 AM EDT Narrative Resulting Agency Comment Spec In Lab Qamar Gallardo MD HEMATOLOGY ORDERABLE S Performing Organization Address City/[facility]/ZIP Co de Phone Number [facility] [place] [address] * Phosphorus (11/03/2023 3:46 AM EDT) Pathologist [facility] Phosphorus 3.2 2.5 - 4.5 mg/dL [facility] Comment:result rechecked-KS Blood 11/03/2023 3:46 AM EDT 11/03/2023 4:11 AM EDT Narrative Resulting Agency Comment Spec In Lab Rosa Cornejo MD CHEMISTRY ORDERABLE S Performing Organization Address [facility] Co de Phone Number [facility] [place] [address] * Magnesium (11/03/2023 3:46 AM EDT) [facility] Magnesium 0.90 0.69 - 1.07 mmol/L [facility] Blood 11/03/2023 3:46 AM EDT 11/03/2023 4:11 AM EDT Narrative Resulting Agency Comment Spec In Lab Rosa Cornejo MD CHEMISTRY ORDERABLE S Performing Organization Address [facility] Co de Phone Number [facility] [place] [address] * (ABNORMAL) Basic Metabolic Panel (non-fasting) (11/03/2023 3:46 AM EDT) Pathologist [facility] Glucose 105 65 - 199 mg/dL [facility] Comment:Diabetes: >=200 mg/d L plus symptoms Blood Urea Nitrogen 13 8 - 18 mg/dL [facility] Creatinine 0.83 0.70 - 1.20 mg/dL [facility] Sodium 139 135 - 145 mmol/L [facility] Potassium 4.0 3.5 - 5.0 mmol/L [facility] Comment: Please note: ??Patients with WBC >100,000 may have falsely elevated Potassium levels. ??For accurate Potassium quantification in these patients send serum separator tube (gold top) for subsequent determinations. ??Contact the Clinical Chemistry Laboratory if there are any questions. Chloride 108(H) 98 - 107 mmol/L [facility] Carbon Dioxide 19(L) 22 - 31 mmol/L [facility] Anion Gap 12 5 - 15 mmol/L [facility] Calcium 8.2(L) 8.5 - 10.5 mg/dL [facility] Est Glomerular Filtration Rate 69 >=60 mL/min/1. 73 m?? [facility] Comment: This patient's estimated [...] Lab Rosa Cornejo MD CHEMISTRY ORDERABLE S [facility] [place] [address] * EKG 12 Lead (11/02/2023 12:44 PM EDT) Ventricular rate 83 BPM MUSE SYSTEM Atrial Rate 83 BPM MUSE SYSTEM P-R Interval 216 ms MUSE SYSTEM QRS Duration 90 ms MUSE SYSTEM Q-T Interval 384 ms MUSE SYSTEM QTC Calculated (Bezet) 451 ms MUSE SYSTEM Calculated P [place] 92 degrees MUSE SYSTEM Calculated R [place] -51 degrees MUSE SYSTEM Calculated T [place] -33 degrees MUSE SYSTEM INTERPRETATION Sinus rhythm with 1st degree A-V block with Premature atrial complexes Left axis deviation Moderate voltage criteria for LVH, may be normal variant ( R in aVL , [place] product ) Anterolatera l infarct (cited on or before 01-NOV-2023) Abnormal ECG When compared with ECG of 01-NOV-2023 22:10, Premature atrial complexes are now Present [place] interval has increased Vent. rate has decreased BY ??56 BPM Confirmed by MD Kevin, Esteban ([id number]) on 11/02/2023 1:32:10 PM MUSE SYSTEM 11/02/2023 12:4 4 PM EDT 11/02/2023 1:32 PM EDT Rosa Hugo MD ECG ORDERABLES MUSE SYSTEM * (ABNORMAL) Urinalysis Microscopic Exam (11/02/2023 11:40 AM EDT) RBC, Urine <1 0 - 4 /HPF [facility] Comment: Interpret results with caution, microscopic results are from suboptimal specimen volume WBC, Urine 16(H) 0 - 5 /HPF [facility] Comment: Interpret results with caution, microscopic results are from suboptimal specimen volume Bacteria, Urine Many(A) None /HPF [facility] Squamous Epithelial Cells Raw Data, Urine 10(H) <=4 /HPF [facility] Hyaline Casts, Urine 2 0 - 2 /LPF [facility] Comment: Interpret results with caution, microscopic results are from suboptimal specimen volume Clean Catch Urine 11/02/2023 11:40 AM EDT 11/02/2023 12:05 PM EDT Narrative Resulting Agency Comment Spec In Lab Elmer Tamez MD URINE ORDERABLES [facility] [place] [address] * (ABNORMAL) Urinalysis with reflex Culture (11/02/2023 11:40 AM EDT) Glucose, Urine Dipstick Negative Negative mg/dL [facility] Protein, Urine Dipstick 30(A) Negative mg/dL [facility] Bilirubin, Urine Dipstick Negative Negative mg/dL [facility] Comment: Clinical correlation required for positive Urine Bilirubin results as false positive may occur with some drugs and drug related products. If a false positive is suspected a serum total bilirubin should be considered if clinically indicated. Urobilinogen, Urine Dipstick Normal Normal mg/dL [facility] pH, Urn (dipstick) 5.5 5.0 - 8.0 [facility] Blood, Urine Dipstick Negative Negative mg/dL [facility] Ketone, Urine Dipstick Trace(A) Negative mg/dL [facility] Nitrite, Urine Dipstick Positive(A) Negative [facility] Leukocytes, Urine Dipstick Small(A) Negative [facility] Appearance, Urine Dipstick Cloudy(A) Clear [facility] Specific Elizabeth Urine Automated >=1.030(A) 1.005 - 1.030 [facility] Color, Urine Dipstick Dark Yellow Yellow [facility] Reflex to Culture Yes [facility] Clean Catch Urine 11/02/2023 11:40 AM EDT 11/02/2023 12:04 PM EDT Narrative Resulting Agency Comment Spec In Lab Rosa Hugo MD URINE ORDERABLES [facility] [place] [address] * Respiratory Panel PCR (11/02/2023 10:15 AM EDT) Respiratory Panel Source SERVICE [employer]UM[employer] Swab [facility] Respiratory Panel PCR Negative Negative [facility] Comment: Respiratory Panels are performed on the [place], using multiplexed PCR nucleic acid detection. ??Negative results do not preclude respiratory infection and should not be used as the sole basis for diagnosis, treatment or other management decisions. Adenovirus Not Detected Not Detected [facility] Coronavirus HKU1 Not Detected Not Detected [facility] Coronavirus NL63 Not Detected Not Detected [facility] Coronavirus 229E Not Detected Not Detected [facility] Coronavirus OC43 Not Detected Not Detected [facility] SARS-CoV-2 Not Detected Not Detected [facility] Comment: Testing for SARS-CoV-2 (Severe acute respiratory syndrome coronavirus 2) to aid in the diagnosis of COVID-19 is performed using the [employer] Respiratory Panel 2.1 ([employer]) as authorized by the FDA issued Emergency Use Authorization (EUA). This panel also tests for multiple other viral and bacterial pathogens. This assay is intended for In-vitro Diagnostic (IVD) use with nasopharyngeal swabs in viral transport media. The assay is performed based on the instructions for use and additional guidance provided by the FDA. Testing is performed in laboratories within the [facility], each of which is certified under the [...] fact sheets at the following FDA website: https://www.fda.gov/medical-devices/phpyaoxiquy-ckmsqqi-3858-prxlz-84-pnujfcaqs- use-a eibxzwpiteito-cdjkopp-emygabx/zsano-kebnqdoarab-kjdd Human Metapneumovirus Not Detected Not Detected [facility] Human Rhinovirus/Enterov irus Not Detected Not Detected [facility] Influenza A Not Detected Not Detected [facility] Influenza B Not Detected Not Detected [facility] Parainfluenza 1 Not Detected Not Detected [facility] Parainfluenza 2 Not Detected Not Detected [facility] Parainfluenza 3 Not Detected Not Detected [facility] Parainfluenza 4 Not Detected Not Detected [facility] Respiratory Syncytial Virus Not Detected Not Detected [facility] Chlamydophila pneumoniae Not Detected Not Detected [facility] Mycoplasma pneumoniae Not Detected Not Detected [facility] Nasopharyngeal Swab 11/02/19 10:15 AM EDT 11/02/2023 10:49 AM EDT Narrative Resulting Agency Comment Spec In Lab Rosa Hugo MD MICROBIOLOGY - GEN ERAL ORDERABLES [facility] [place] [address] * XR Chest One View (11/02/2023 2:51 AM EDT) WORKSTATION ID [id number] RAD Anatomical Region Laterality Modality Chest N/A [...] who have questions please contact the health intensive care anaesthetist that requested your imaging first. ? Electronically signed by: Omaira Tran MD, [facility] ([phone]), at 11/02/2023 4:56 AM Narrative 11/02/2023 4:56 [...] patients who have questions please contactthe health intensive care anaesthetist that requested your imaging first. Electronically signed by: Omaira Tran MD, [facility]([phone]), at 11/02/2023 4:56 AM Rosa Hugo MD IMG DX ORDERABLES * (ABNORMAL) Differential, Automated (11/02/2023 12:35 AM EDT) Neutrophil % 76.5 % [facility] Neutrophil Absolute 7.69(H) 1.70 - 6.10 x10(3)/mc L [facility] Lymph % 8.3 % [facility] Lymphocytes Abs 0.8(L) 0.9 - 3.2 x10(3)/mc L [facility] Monocyte % 12.9 % [facility] Monocyte Abs 1.3(H) 0.3 - 0.9 x10(3)/mc L [facility] Eos % 1.4 % [facility] Eosinophils Abs 0.1 0.0 - 0.4 x10(3)/mc L [facility] Basophil % 0.4 % [facility] Baso Absolute 0.0 0.0 - 0.1 x10(3)/mc L [facility] Immature Gran % 0.50 % [facility] Comment: Immature granulocytes(IG's)percentage and absolute count will include metamyelocytes, myelocytes, and promyelocytes. Blood smears from CBCs yielding IG's will be scanned manually for concordance. If this scan disagrees with the automated IG or if promyelocytes are noted, a manual differential will be performed. Immature Gran Absolute 0.05(H) 0.00 - 0.04 x10(3)/mc L [facility] Blood 11/02/2023 12:3 5 AM EDT 11/02/2023 12:43 AM EDT Narrative Resulting Agency Comment Spec In Lab Qamar Gallardo MD HEMATOLOGY ORDERABLE S [facility] [place] [address] * (ABNORMAL) Hemogram (11/02/2023 12:35 AM EDT) White Blood Cell 10.0(H) 4.0 - 9.5 x10(3)/ L [facility] Red Blood Cell 4.06 4.00 - 5.21 x10(6)/mc L [facility] Hemoglobin 13.8 11.7 - 15.5 g/dL [facility] Hematocrit 39.8 35.7 - 45.8 % [facility] Mean Cell Volume 98.0(H) 82.6 - 94.4 fL [facility] Mean Cell Hemoglobin 34.0(H) 27.1 - 32.0 pg [facility] Mean Cell Hemoglobin Concentration 34.7 31.7 - 35.0 g/dL [facility] Platelet 198 145 - 357 x10(3)/mc L [facility] RDW Standard Deviation 52.1(H) 37.0 - 46.0 fL [facility] RDW coefficient of variation 14.3(H) 11.5 - 14.1 % [facility] Mean Platelet Volume 11.4 7.6 - 12.9 fL [facility] NRBC% auto 0.0 % [facility] NRBC Absolute 0.000 0.000 - 0.000 x10(3)/mc L [facility] Blood 11/02/2023 12:3 5 AM EDT 11/02/2023 12:43 AM EDT Narrative Resulting Agency Comment Spec In Lab Qamar Gallardo MD HEMATOLOGY ORDERABLE S [facility] [place] [address] * (ABNORMAL) Phosphorus (11/02/2023 12:35 AM EDT) Phosphorus 1.6(L) 2.5 - 4.5 mg/dL [facility] Blood 11/02/2023 12:3 5 AM EDT 11/02/2023 12:43 AM EDT Narrative Resulting Agency Comment Spec In Lab Rosa Cornejo MD CHEMISTRY ORDERABLE S Performing Organization Address City/[facility]/ZIP Co de Phone Number [facility] [place] [address] * Magnesium (11/02/2023 12:35 AM EDT) Magnesium 0.87 0.69 - 1.07 mmol/L [facility] Blood 11/02/2023 12:3 5 AM EDT 11/02/2023 12:43 AM EDT Narrative Resulting Agency Comment Spec In Lab Rosa Cornejo MD CHEMISTRY ORDERABLE S Performing Organization Address City/[facility]/ZIP Co de Phone Number [facility] [place] [address] * Basic Metabolic Panel (non-fasting) (11/02/2023 12:35 AM EDT) Glucose 125 65 - 199 mg/dL [facility] Comment:Diabetes: >=200 mg/d L plus symptoms Blood Urea Nitrogen 9 8 - 18 mg/dL [facility] Creatinine 0.83 0.70 - 1.20 mg/dL [facility] Sodium 136 135 - 145 mmol/L [facility] Potassium 3.6 3.5 - 5.0 mmol/L [facility] Comment: Please note: ??Patients with WBC >100,000 may have falsely elevated Potassium levels. ??For accurate Potassium quantification in these patients send serum separator tube (gold top) for subsequent determinations. ??Contact the Clinical Chemistry Laboratory if there are any questions. Chloride 102 98 - 107 mmol/L [facility] Carbon Dioxide 25 22 - 31 mmol/L [facility] Anion Gap 9 5 - 15 mmol/L [facility] Calcium 9.0 8.5 - 10.5 mg/dL [facility] Est Glomerular Filtration Rate 69 >=60 mL/min/1. 73 m?? [facility] Comment: This patient's estimated [...] Lab Rosa Cornejo MD CHEMISTRY ORDERABLE S [facility] [place] [address] * Blood culture (11/02/2023 12:35 AM EDT) Blood Culture No growth at 5 days. [facility] Blood 11/02/2023 12:3 5 AM EDT 11/02/2023 1:55 AM EDT Comment:#2 site ukn Narrative Resulting Agency Comment Spec In Lab Rosa Hugo MD MICROBIOLOGY - BLO OD ORDERABLES Performing Organization Address City/[facility]/ZIP Co de Phone Number [facility] [place] [address] * Blood culture (11/02/2023 12:15 AM EDT) Blood Culture No growth at 5 days. [facility] Blood 11/02/2023 12:1 5 AM EDT 11/02/2023 1:54 AM EDT Comment:#1site unk Narrative Resulting Agency Comment Spec In Lab Rosa Hugo MD MICROBIOLOGY - BLO OD ORDERABLES Performing Organization Address [facility] Co de Phone Number [facility] [place] [address] * EKG 12 Lead (11/01/2023 10:10 PM EDT) Ventricular rate 139 BPM MUSE SYSTEM Atrial Rate 139 BPM MUSE SYSTEM P-R Interval 168 ms MUSE SYSTEM QRS Duration 84 ms MUSE SYSTEM Q-T Interval 286 ms MUSE SYSTEM QTC Calculated (Bezet) 435 ms MUSE SYSTEM Calculated R [place] -59 degrees MUSE SYSTEM Calculated T [place] -27 degrees MUSE SYSTEM INTERPRETATION Mid-RP tachycardia, consider sinus tachycardia or SVT Left axis deviation Moderate voltage criteria for LVH, may be normal variant ( R in aVL , [place] product ) Inferior infarct (cited on or before 01-NOV-2023) Anterolateral infarct (cited on or before 01-NOV-2023) Abnormal ECG When compared with ECG of 01-NOV-2023 15:22, Vent. rate Although rate has increased Serial changes of Anterior infarct Present I personally reviewed the tracing and edited the fellows interpretation Confirmed by fellow MD Bowen Ashley ([id number]) on 11/04/2023 7:57:50 AM Confirmed by MD Carrillo Danette ([id number]) on 11/04/2023 4:32:03 PM MUSE SYSTEM 11/01/2023 10:1 0 PM EDT 11/04/2023 4:32 PM EDT Rosa Cornejo MD ECG ORDERABLES MUSE SYSTEM * (ABNORMAL) Hemogram (11/01/2023 10:06 PM EDT) White Blood Cell 10.4(H) 4.0 - 9.5 x10(3)/mc L [facility] Red Blood Cell 4.11 4.00 - 5.21 x10(6)/mc L [facility] Hemoglobin 14.0 11.7 - 15.5 g/dL [facility] Hematocrit 41.1 35.7 - 45.8 % [facility] Mean Cell Volume 100.0(H) 82.6 - 94.4 fL [facility] Mean Cell Hemoglobin 34.1(H) 27.1 - 32.0 pg [facility] Mean Cell Hemoglobin Concentration 34.1 31.7 - 35.0 g/dL [facility] Platelet 197 145 - 357 x10(3)/mc L [facility] RDW Standard Deviation 54.0(H) 37.0 - 46.0 [facility] RDW coefficient of variation 14.6(H) 11.5 - 14.1 % [facility] Mean Platelet Volume 11.2 7.6 - 12.9 [facility] NRBC% auto 0.0 % [facility] NRBC Absolute 0.000 0.000 - 0.000 x10(3)/mc L [facility] Blood 11/01/2023 10:0 6 PM EDT 11/01/2023 10:22 PM EDT Narrative Resulting Agency Comment Spec In Lab Rosa Hugo MD HEMATOLOGY ORDERAB LES [facility] [place] [id number] * POCT Glucose (11/01/2023 5:59 PM EDT) Glucose, POC 104 65 - 199 mg/dL [facility] Comment: Supplemental ranges: <140 mg/dL before meals <180 mg/dL all other times of the day Blood 11/01/2023 5:59 PM EDT 11/01/2023 5:59 PM EDT Rosa Hugo MD POINT OF CARE TEST ORDERABLES [facility] [place] [address] * POCT Glucose (11/01/2023 5:35 PM EDT) Glucose, POC 85 65 - 199 mg/dL [facility] Comment: Supplemental ranges: <140 mg/dL before meals <180 mg/dL all other times of the day Blood 11/01/2023 5:35 PM EDT 11/01/2023 5:35 PM EDT Rosa Hugo MD POINT OF CARE TEST ORDERABLES [facility] [place] [address] * EKG 12 Lead (11/01/2023 3:22 PM EDT) Ventricular rate 59 BPM MUSE SYSTEM Atrial Rate 59 BPM MUSE SYSTEM P-R Interval 220 ms MUSE SYSTEM QRS Duration 94 ms MUSE SYSTEM Q-T Interval 428 ms MUSE SYSTEM QTC Calculated (Bezet) 423 ms MUSE SYSTEM Calculated P [place] 76 degrees MUSE SYSTEM Calculated R [place] -50 degrees MUSE SYSTEM Calculated T [place] -59 degrees MUSE SYSTEM INTERPRETATION Sinus bradycardia [...] Modality Other Narrative 11/02/2023 4:57 PM EDT ?[facility] ? Cardiac Catheterization/Intervention Report ? Patient Name: Adin Santos. ? Procedure Date: 11/01/2023 ? A #: [id number] ? Primary Physician: Rosa Dewey I ? Case #: [id number] ? File Name: [id number] ? Catheterization Order Number: [id number] ? [facility] ? Final Report [place], [place] ? Patient Name: ? Adin M. Goguen ?ID#: ?[id number] ? : ?1940 ? Procedure Date: ? [...] was designated as ASA Class III. The [facility] clinical ?frailty scale is 4: Vulnerable. ? [...] procedure was Urgent. The indication for ?the radiographer cardiac catheterization visit is ACS greater than 24 hrs. [...] premounted ? 3.50 x 15 mm [place] (RADHA) was deployed with a maximum ? [...] ? A premounted 3.50 x 15 mm [place] (RADHA) was deployed ? with a maximum [...] dose administered prior to arrival in the radiographer cardiac catheterization. ?Recommended anti-platelet/anti-thrombotic regimen: ?Continue aspirin 81 mg daily for indefinitely. ?Continue clopidogrel 75 mg daily for 12 months then stop. ?These recommendations are made at the time of the intervention. Patient ?and provider preferences or a changing clinical situation may require ?modification of this regimen. Consult [facility] Interventional Cardiology for ?questions. ?The 1 year [...] ?insertion-coronary and IVUS # coronary. ? Rosa Dewey, M.D. ? Electronically Signed by: Rosa Dewey, M.D. ? Report Finalized: 11/02/2023 ??16:51 ? Report Last Ammended: 12/12/2023 ??10:28 ? Procedure Note Rosa Dewey MD - 12/12/2023 [facility] Cardiac Catheterization/Intervention Report Patient Name: Adin Santos Procedure Date: 11/01/2023 A #: [id number] Primary Physician: Rosa Dewey I Case #: [id number] File Name: [id number] Catheterization Order Number: [id number] [facility] FinalReport [place], [place] Patient Name: Adin Santos ID#:[id number] :1940 Procedure Date: November 01, 2023 Case [...] diagnostic procedure was Urgent. The indicationfor the radiographer cardiac catheterization visit is ACS greater than 24 hrs. [...] 14 atmospheres. Apremounted 3.50 x 15 mm [place] (RADHA) was deployed with amaximum inflation pressure [...] The lesion was predilated with a 3.00mm [id number] MM balloon with a maximum inflation pressure of 14atmospheres. A premounted 3.50 x 15 mm [place] [place] (RADHA) wasdeployed with a maximum inflation pressure [...] dose administered prior to arrival in the radiographer cardiac catheterization. Recommended anti-platelet/anti-thrombotic regimen: Continue aspirin 81 mg daily for indefinitely. Continue clopidogrel 75 mg daily for 12 months then stop. These recommendations are made at the time of the intervention.Patient and provider preferences or a changing clinical situation mayrequire modification of this regimen. Consult [facility] Interventional Cardiologyfor questions. The 1 year bleeding [...] * POCT Glucose (11/01/2023 7:06 AM EDT) Pathologist [facility] Glucose, POC 93 65 - 199 mg/dL [facility] Comment: Supplemental ranges: <140 mg/dL before meals <180 mg/dL all other times of the day Blood 11/01/2023 7:06 AM EDT 11/01/2023 7:06 AM EDT Jean Laboy MD POINT OF CARE TEST O RDERABLES [facility] [place] [address] * (ABNORMAL) Differential, Automated (11/01/2023 3:09 AM EDT) Neutrophil % 63.9 % [facility] Neutrophil Absolute 5.54 1.70 - 6.10 x10(3)/mc L [facility] Lymph % 20.0 % [facility] Lymphocytes Abs 1.7 0.9 - 3.2 x10(3)/mc L [facility] Monocyte % 11.9 % [facility] Monocyte Abs 1.0(H) 0.3 - 0.9 x10(3)/ L [facility] Eos % 3.2 % [facility] Eosinophils Abs 0.3 0.0 - 0.4 x10(3)/ L [facility] Basophil % 0.5 % [facility] Baso Absolute 0.0 0.0 - 0.1 x10(3)/ L [facility] Immature Gran % 0.50 % [facility] Comment: Immature granulocytes(IG's)percentage and absolute count will include metamyelocytes, myelocytes, and promyelocytes. Blood smears from CBCs yielding IG's will be scanned manually for concordance. If this scan disagrees with the automated IG or if promyelocytes are noted, a manual differential will be performed. Immature Gran Absolute 0.04 0.00 - 0.04 x10(3)/[facility] Blood 11/01/2023 3:09 AM EDT 11/01/2023 3:29 AM EDT Narrative Resulting Agency Comment Spec In Lab Qamar Gallardo MD HEMATOLOGY ORDERABLE S [facility] [place] [address] * (ABNORMAL) Hemogram (11/01/2023 3:09 AM EDT) White Blood Cell 8.7 4.0 - 9.5 x10(3)/ L [facility] Red Blood Cell 3.72(L) 4.00 - 5.21 x10(6)/[facility] Hemoglobin 12.5 11.7 - 15.5 g/dL [facility] Hematocrit 36.8 35.7 - 45.8 % [facility] Mean Cell Volume 98.9(H) 82.6 - 94.4 fL [facility] Mean Cell Hemoglobin 33.6(H) 27.1 - 32.0 pg [facility] Mean Cell Hemoglobin Concentration 34.0 31.7 - 35.0 g/dL [facility] Platelet 184 145 - 357 x10(3)/mc L [facility] RDW Standard Deviation 53.5(H) 37.0 - 46.0 fL [facility] RDW coefficient of variation 14.6(H) 11.5 - 14.1 % [facility] Mean Platelet Volume 11.3 7.6 - 12.9 fL [facility] NRBC% auto 0.0 % [facility] NRBC Absolute 0.000 0.000 - 0.000 x10(3)/mc L [facility] Blood 11/01/2023 3:09 AM EDT 11/01/2023 3:29 AM EDT Narrative Resulting Agency Comment Spec In Lab Qamra Gallardo MD HEMATOLOGY ORDERABLE S [facility] [place] [address] * Phosphorus (11/01/2023 3:09 AM EDT) Phosphorus 2.5 2.5 - 4.5 mg/dL [facility] Blood 11/01/2023 3:09 AM EDT 11/01/2023 3:29 AM EDT Narrative Resulting Agency Comment Spec In Lab Rosa Cornejo MD CHEMISTRY ORDERABLE S [facility] [place] [address] * Magnesium (11/01/2023 3:09 AM EDT) Magnesium 0.82 0.69 - 1.07 mmol/L [facility] Blood 11/01/2023 3:09 AM EDT 11/01/2023 3:29 AM EDT Narrative Resulting Agency Comment Spec In Lab Rosa Cornejo MD CHEMISTRY ORDERABLE S [facility] [place] [address] * (ABNORMAL) Basic Metabolic Panel (non-fasting) (11/01/2023 3:09 AM EDT) Glucose 100 65 - 199 mg/dL [facility] Comment:Diabetes: >=200 mg/d L plus symptoms Blood Urea Nitrogen 14 8 - 18 mg/dL [facility] Creatinine 0.83 0.70 - 1.20 mg/dL [facility] Sodium 137 135 - 145 mmol/L [facility] Potassium 3.4(L) 3.5 - 5.0 mmol/L [facility] Comment: Please note: ??Patients with WBC >100,000 may have falsely elevated Potassium levels. ??For accurate Potassium quantification in these patients send serum separator tube (gold top) for subsequent determinations. ??Contact the Clinical Chemistry Laboratory if there are any questions. Chloride 105 98 - 107 mmol/L [facility] Carbon Dioxide 24 22 - 31 mmol/L [facility] Anion Gap 8 5 - 15 mmol/L [facility] Calcium 8.6 8.5 - 10.5 mg/dL [facility] Est Glomerular Filtration Rate 69 >=60 mL/min/1. 73 m?? [facility] Comment: This patient's estimated [...] MD CHEMISTRY ORDERABLE S Performing Organization Address City/[facility]/ZIP Co de Phone Number [facility] [place] [address] * (ABNORMAL) Troponin (10/31/2023 2:46 PM EDT) Troponin-T, High Sensitivity 544(H) <=14 ng/L [facility] Comment: This patient's troponin [...] troponin value can be found in the [facility] Laboratory Test Catalog Troponin - [facility] Laboratory Test Catalog Reference: Fourth [place] Definition of Myocardial Infarction. Journal of the [place] [employer] 2018;72:2798-3179 Blood 10/31/2023 2:46 PM EDT 10/31/2023 2:55 PM EDT Narrative Resulting Agency Comment Spec In Lab Jean Laboy MD CHEMISTRY ORDERABLES Performing Organization Address City/[facility]/ZIP Co de Phone Number [facility] [place] [address] * EKG 12 Lead (10/31/2023 1:07 PM EDT) Ventricular rate 54 BPM MUSE SYSTEM Atrial Rate 54 BPM MUSE SYSTEM P-R Interval 218 ms MUSE SYSTEM QRS Duration 92 ms MUSE SYSTEM Q-T Interval 540 ms MUSE SYSTEM QTC Calculated (Bezet) 512 ms MUSE SYSTEM Calculated P [place] 85 degrees MUSE SYSTEM Calculated R [place] -44 degrees MUSE SYSTEM Calculated T [place] -69 degrees MUSE SYSTEM INTERPRETATION Sinus bradycardia with 1st degree A-V block Left axis deviation Moderate voltage criteria for LVH, may be normal variant ( R in aVL , [place] product ) T wave abnormality, consider inferolateral ischemia Prolonged QT Abnormal ECG When compared with ECG of 30-OCT-2023 20:21, Incomplete right bundle branch block is no longer Present Confirmed by MD NEFTALI, CHIDI ([id number]) on 10/31/2023 2:28:46 PM MUSE SYSTEM 10/31/2023 1:07 PM EDT 10/31/2023 2:28 PM EDT Rosa Cornejo MD ECG ORDERABLES MUSE SYSTEM * (ABNORMAL) Troponin (10/31/2023 11:37 AM EDT) Pathologist [facility] Troponin-T, High Sensitivity 580(H) <=14 ng/L [facility] Comment: This patient's troponin [...] troponin value can be found in the [facility] Laboratory Test Catalog Troponin - [facility] Laboratory Test Catalog Reference: Fourth [place] Definition of Myocardial Infarction. Journal of the [place] College [employer] 2018;72:5068-7448 Blood 10/31/2023 11:3 7 AM EDT 10/31/2023 11:50 AM EDT Narrative Resulting Agency Comment Spec In Lab Rosa Cornejo MD CHEMISTRY ORDERABLE S [facility] [place] [address] * ECHO COMPLETE (10/31/2023 8:52 AM EDT) Anatomical Region Laterality Modality Cardiac Other 10/31/2023 7:57 AM EDT Narrative 10/31/2023 9:45 AM EDT [address] [place] [address] ? Echocardiogram Report Name: TOM ADIN Dorene ? Study Date: 10/31/2023 07:57 AMBP: 106/76 mmHg ? Patient Location: [address] : 1940 ? Height: 163 cm ? Account: [id number] Age: 83 yrs ? Weight: 76 kg Gender: Female ?BSA: 1.8 m2 Ordering Physician: ROSA DEWEY Referring Physician: OMAIRA GIRON Performed By: HAFSA Carmichael Reason For Study: STEMI Interpreting Fellow: Raymond Warren. Exam Location: [facility]. Interpretation Summary -The left ventricle is of [...] is no prior echocardiogram for comparison. Procedure Complete-13906. Satisfactory quality. There is sinus bradycardia. Left [...] Note Edgard Wang MD - 10/31/2023 [address] [place] [address] Echocardiogram Report Name: ADIN SANTOS Study Date: 407:57 AMBP: 106/76 mmHg Patient Location: [address] : 1940 Height: 163 cm Account: [id number] Age: 83 yrs Weight: 76 kg Gender: Female BSA: 1.8 m2 Ordering Physician: ROSA DEWEY Referring Physician: OMAIRA GIRON Performed By: HAFSA Carmichael Reason For Study: STEMI Interpreting Fellow: Raymond Warren. Exam Location: [facility]. Interpretation Summary -The left ventricle is of [...] is no prior echocardiogram for comparison. Procedure Complete-28650. Satisfactory quality. There is sinus bradycardia. Left [...] * (ABNORMAL) Troponin (10/31/2023 8:51 AM EDT) [facility] Troponin-T, High Sensitivity 571(H) <=14 ng/L [facility] Comment: This patient's troponin [...] troponin value can be found in the [facility] Laboratory Test Catalog Troponin - [facility] Laboratory Test Catalog Reference: Fourth [place] Definition of Myocardial Infarction. Journal of the [employer] 2018;72:1343-1425 Blood 10/31/2023 8:51 AM EDT 10/31/2023 9:12 AM EDT Narrative Resulting Agency Comment Spec In Lab Rosa Cornejo MD CHEMISTRY ORDERABLE S Performing Organization Address [facility] Co de Phone Number [facility] [place] [address] * CARDIAC CATHETERIZATION (10/31/2023 8:10 AM EDT) Anatomical Region Laterality Modality Other Narrative 11/07/2023 9:42 AM EDT ?[facility] ? Cardiac Catheterization/Intervention Report ? Patient Name: Adin Santos ? Procedure Date: 10/30/2023 ? A #: [id number] ? Primary Physician: Rosa Dewey I ? Case #: [id number] ? File Name: [id number] ? Catheterization Order Number: [id number] ? [facility] ? Final Report [place], [place] ? Patient Name: ? Adin M. Goguen ?ID#: ?[id number] ? : ?1940 ? Procedure Date: ? [...] was designated as ASA Class III. The [facility] clinical frailty scale ?is 5: Mildly Frail. ? Diagnostic Tests: ?Electrocardiography: ? EKG was assessed by ECG. EKG was Abnormal. EKG showed ST Deviation ? >= 0.5 mm, other abnormality and dynamic EKG changes. ?Medications Prior to Procedure: ? Aspirin, Angiotensin II Receptor Rodrick, Beta Rodrick and Statin. ? Indications for Diagnostic Cath: ?The priority of the diagnostic procedure was Emergent. The indication for ?the radiographer cardiac catheterization visit is ACS less than or equal [...] A premounted 4.00 x 38 mm [place] (RADHA) was deployed ? with a maximum [...] dose administered prior to arrival in the radiographer cardiac catheterization. ?Recommended anti-platelet/anti-thrombotic regimen: ?Continue aspirin 81 mg daily for 12 months then stop. ?Continue clopidogrel 75 mg daily for indefinitely. ?These recommendations are made at the time of the intervention. Patient ?and provider preferences or a changing clinical situation may require ?modification of this regimen. Consult [facility] Interventional Cardiology for ?questions. ? Conclusions: ?* [...] Last Ammended: 12/05/2023 ??09:12 ? Procedure Note oRsa Dewey MD - 12/05/2023 [facility] Cardiac Catheterization/Intervention Report Patient Name: Adin Santos Procedure Date: 10/30/2023 A #: [id number] Primary Physician: Rosa Dewey I Case #: [id number] File Name: [id number] Catheterization Order Number: [id number] [facility] FinalReport [place], [place] Patient Name: Adin Santos ID#:[id number] :1940 Procedure Date: October 30, 2023 Case #: [id number] Room: 5 Case Physician: Rosa Dewey M.D. [...] was designated as ASA Class III. The [facility] clinical frailtyscale is 5: Mildly Frail. Diagnostic Tests: Electrocardiography: EKG was assessed by ECG. EKG was Abnormal. EKG showed STDeviation >= 0.5 mm, other abnormality and dynamic EKG changes. Medications Prior to Procedure: Aspirin, Angiotensin II Receptor Rodrick, Beta Rodrick andStatin. Indications for Diagnostic Cath: The priority of the diagnostic procedure was Emergent. Theindication for the radiographer cardiac catheterization visit is ACS less than or equal [...] The priority for the procedure was Emergent.The [facility] indication for the procedure was STEMI-Immediate PCI [...] 16atmospheres. A premounted 4.00 x 38 mm [place] (RADHA) wasdeployed with a maximum inflation pressure [...] dose administered prior to arrival in the radiographer cardiac catheterization. Recommended anti-platelet/anti-thrombotic regimen: Continue aspirin 81 mg daily for 12 months then stop. Continue clopidogrel 75 mg daily for indefinitely. These recommendations are made at the time of the intervention.Patient and provider preferences or a changing clinical situation mayrequire modification of this regimen. Consult [facility] Interventional Cardiologyfor questions. Conclusions: * Two vessel [...] * (ABNORMAL) Troponin (10/31/2023 4:21 AM EDT) [facility] Troponin-T, High Sensitivity 457(H) <=14 ng/L [facility] Comment: This patient's troponin [...] troponin value can be found in the [facility] Laboratory Test Catalog Troponin - [facility] Laboratory Test Catalog Reference: Fourth [place] Definition of Myocardial Infarction. Journal of the [place] [employer] 2018;72:2773-0600 Blood 10/31/2023 4:21 AM EDT 10/31/2023 4:30 AM EDT Narrative Resulting Agency Comment Spec In Lab Rosa Cornejo MD CHEMISTRY ORDERABLE S Performing Organization Address City/State/[facility] Co de Phone Number [facility] [place] [address] * (ABNORMAL) Differential, Automated (10/31/2023 3:05 AM EDT) Neutrophil % 71.7 % [facility] Neutrophil Absolute 8.21(H) 1.70 - 6.10 x10(3)/mc L [facility] Lymph % 16.9 % [facility] Lymphocytes Abs 1.9 0.9 - 3.2 x10(3)/mc L [facility] Monocyte % 9.4 % [facility] Monocyte Abs 1.1(H) 0.3 - 0.9 x10(3)/mc L [facility] Eos % 1.3 % [facility] Eosinophils Abs 0.2 0.0 - 0.4 x10(3)/mc L [facility] Basophil % 0.4 % [facility] Baso Absolute 0.0 0.0 - 0.1 x10(3)/mc L [facility] Immature Gran % 0.30 % [facility] Comment: Immature granulocytes(IG's)percentage and absolute count will include metamyelocytes, myelocytes, and promyelocytes. Blood smears from CBCs yielding IG's will be scanned manually for concordance. If this scan disagrees with the automated IG or if promyelocytes are noted, a manual differential will be performed. Immature Gran Absolute 0.04 0.00 - 0.04 x10(3)/ L [facility] Blood 10/31/2023 3:05 AM EDT 10/31/2023 3:13 AM EDT Narrative Resulting Agency Comment Spec In Lab Qamar Gallardo MD HEMATOLOGY ORDERABLE S [facility] [place] [address] * (ABNORMAL) Hemogram (10/31/2023 3:05 AM EDT) White Blood Cell 11.5(H) 4.0 - 9.5 x10(3)/ L [facility] Red Blood Cell 3.75(L) 4.00 - 5.21 x10(6)/mc L [facility] Hemoglobin 12.6 11.7 - 15.5 g/dL [facility] Hematocrit 37.1 35.7 - 45.8 % [facility] Mean Cell Volume 98.9(H) 82.6 - 94.4 fL [facility] Mean Cell Hemoglobin 33.6(H) 27.1 - 32.0 pg [facility] Mean Cell Hemoglobin Concentration 34.0 31.7 - 35.0 g/dL [facility] Platelet 206 145 - 357 x10(3)/mc L [facility] RDW Standard Deviation 53.4(H) 37.0 - 46.0 fL [facility] RDW coefficient of variation 14.6(H) 11.5 - 14.1 % [facility] Mean Platelet Volume 11.1 7.6 - 12.9 fL [facility] NRBC% auto 0.0 % [facility] NRBC Absolute 0.000 0.000 - 0.000 x10(3)/mc L [facility] Blood 10/31/2023 3:05 AM EDT 10/31/2023 3:13 AM EDT Narrative Resulting Agency Comment Spec In Lab Qamar Gallardo MD HEMATOLOGY ORDERABLE S Performing Organization Address [facility] de Phone Number [facility] [place] [address] * (ABNORMAL) APTT (10/31/2023 3:05 AM EDT) Partial Thromboplastin Time 67(H) 25 - 37 sec [facility] Comment: The PTT is NOT appropriate for heparin monitoring. Use the Anti-Xa level for heparin monitoring (HEP UFH) or LMWH monitoring (HEP LMW). A PTT less than 37 seconds generally indicates adequate hemostasis. Blood 10/31/2023 3:05 AM EDT 10/31/2023 3:13 AM EDT Narrative Resulting Agency Comment Spec In Lab Rosa Cornejo MD HEMATOLOGY ORDERABL ES Performing Organization Address [facility] de Phone Number [facility] [place] [address] * (ABNORMAL) Prothrombin Time (10/31/2023 3:05 AM EDT) Prothrombin Time 12.6(H) 9.4 - 12.5 sec [facility] International Normalization Ratio 1.1 [facility] Comment: An INR <2.0 [...] Lab Rosa Cornejo MD HEMATOLOGY ORDERABL ES [facility] [place] [address] * (ABNORMAL) Differential, Automated (10/31/2023 1:37 AM EDT) Neutrophil % 71.1 % [facility] Neutrophil Absolute 7.53(H) 1.70 - 6.10 x10(3)/mc L [facility] Lymph % 18.0 % [facility] Lymphocytes Abs 1.9 0.9 - 3.2 x10(3)/ L [facility] Monocyte % 8.7 % [facility] Monocyte Abs 0.9 0.3 - 0.9 x10(3)/mc L [facility] Eos % 1.6 % [facility] Eosinophils Abs 0.2 0.0 - 0.4 x10(3)/mc L [facility] Basophil % 0.4 % [facility] Baso Absolute 0.0 0.0 - 0.1 x10(3)/mc L [facility] Immature Gran % 0.20 % [facility] Comment: Immature granulocytes(IG's)percentage and absolute count will include metamyelocytes, myelocytes, and promyelocytes. Blood smears from CBCs yielding IG's will be scanned manually for concordance. If this scan disagrees with the automated IG or if promyelocytes are noted, a manual differential will be performed. Immature Gran Absolute 0.02 0.00 - 0.04 x10(3)/mc L [facility] Blood 10/31/2023 1:37 AM EDT 10/31/2023 1:46 AM EDT Narrative Resulting Agency Comment Spec In Lab Qamar Gallardo MD HEMATOLOGY ORDERABLE S [facility] [place] [address] * (ABNORMAL) Hemogram (10/31/2023 1:37 AM EDT) White Blood Cell 10.6(H) 4.0 - 9.5 x10(3)/mc L [facility] Red Blood Cell 3.78(L) 4.00 - 5.21 x10(6)/mc L [facility] Hemoglobin 13.0 11.7 - 15.5 g/dL [facility] Hematocrit 37.9 35.7 - 45.8 % [facility] Mean Cell Volume 100.3(H) 82.6 - 94.4 fL [facility] Mean Cell Hemoglobin 34.4(H) 27.1 - 32.0 pg [facility] Mean Cell Hemoglobin Concentration 34.3 31.7 - 35.0 g/dL [facility] Platelet 204 145 - 357 x10(3)/mc L [facility] RDW Standard Deviation 54.3(H) 37.0 - 46.0 fL [facility] RDW coefficient of variation 14.6(H) 11.5 - 14.1 % [facility] Mean Platelet Volume 11.1 7.6 - 12.9 fL [facility] NRBC% auto 0.0 % [facility] NRBC Absolute 0.000 0.000 - 0.000 x10(3)/mc L [facility] Blood 10/31/2023 1:37 AM EDT 10/31/2023 1:46 AM EDT Narrative Resulting Agency Comment Spec In Lab Qamar Gallardo MD HEMATOLOGY ORDERABLE S [facility] [place] [address] * Phosphorus (10/31/2023 1:37 AM EDT) Phosphorus 3.2 2.5 - 4.5 mg/dL [facility] Blood 10/31/2023 1:37 AM EDT 10/31/2023 1:46 AM EDT Narrative Resulting Agency Comment Spec In Lab Rosa Cornejo MD CHEMISTRY ORDERABLE S Performing Organization Address City/[facility]/ZIP Co de Phone Number [facility] [place] [address] * Magnesium (10/31/2023 1:37 AM EDT) Magnesium 0.83 0.69 - 1.07 mmol/L [facility] Blood 10/31/2023 1:37 AM EDT 10/31/2023 1:46 AM EDT Narrative Resulting Agency Comment Spec In Lab Rosa Cornejo MD CHEMISTRY ORDERABLE S Performing Organization Address City/[facility]/ZIP Co de Phone Number [facility] [place] [address] * Basic Metabolic Panel (non-fasting) (10/31/2023 1:37 AM EDT) Glucose 114 65 - 199 mg/dL [facility] Comment:Diabetes: >=200 mg/d L plus symptoms Blood Urea Nitrogen 13 8 - 18 mg/dL [facility] Creatinine 0.81 0.70 - 1.20 mg/dL [facility] Sodium 140 135 - 145 mmol/L [facility] Potassium 3.9 3.5 - 5.0 mmol/L [facility] Comment: Please note: ??Patients with WBC >100,000 may have falsely elevated Potassium levels. ??For accurate Potassium quantification in these patients send serum separator tube (gold top) for subsequent determinations. ??Contact the Clinical Chemistry Laboratory if there are any questions. Chloride 107 98 - 107 mmol/L [facility] Carbon Dioxide 25 22 - 31 mmol/L [facility] Anion Gap 8 5 - 15 mmol/L [facility] Calcium 8.6 8.5 - 10.5 mg/dL [facility] Est Glomerular Filtration Rate 72 >=60 mL/min/1. 73 m?? [facility] Comment: This patient's estimated [...] Lab Rosa Cornejo MD CHEMISTRY ORDERABLE S [place] [facility] [place] [address] * (ABNORMAL) Troponin (10/31/2023 1:37 AM EDT) Troponin-T, High Sensitivity 329(H) <=14 ng/L [facility] Comment: This patient's troponin [...] troponin value can be found in the [facility] Laboratory Test Catalog Troponin - [facility] Laboratory Test Catalog Reference: Fourth [place] Definition of Myocardial Infarction. Journal of the [employer] 2018;72:1572-4767 Blood 10/31/2023 1:37 AM EDT 10/31/2023 1:46 AM EDT Narrative Resulting Agency Comment Spec In Lab Rosa Cornejo MD CHEMISTRY ORDERABLE S Performing Organization Address City/[facility]/[place] [address] * EKG 12 Lead (10/31/2023 1:20 AM EDT) Ventricular rate 52 BPM MUSE SYSTEM Atrial Rate 52 BPM MUSE SYSTEM P-R Interval 224 ms MUSE SYSTEM QRS Duration 108 ms MUSE SYSTEM Q-T Interval 544 ms MUSE SYSTEM QTC Calculated (Bezet) 505 ms MUSE SYSTEM Calculated P [place] 90 degrees MUSE SYSTEM Calculated R [place] -57 degrees MUSE SYSTEM Calculated T [place] -63 degrees MUSE SYSTEM INTERPRETATION Sinus bradycardia [...] No significant change was found Confirmed by Butch Soto MD ([id number]) on 11/01/2023 8:58:03 PM MUSE SYSTEM 10/31/2023 1:20 AM EDT 11/01/2023 8:58 PM EDT Rosa Cornejo MD ECG ORDERABLES MUSE SYSTEM * EKG 12 Lead (10/30/2023 10:40 PM EDT) Ventricular rate 55 BPM MUSE SYSTEM Atrial Rate 55 BPM MUSE SYSTEM P-R Interval 232 ms MUSE SYSTEM QRS Duration 102 ms MUSE SYSTEM Q-T Interval 520 ms MUSE SYSTEM QTC Calculated (Bezet) 497 ms MUSE SYSTEM Calculated P [place] 75 degrees MUSE SYSTEM Calculated R [place] -53 degrees MUSE SYSTEM Calculated T [place] -57 degrees MUSE SYSTEM INTERPRETATION Sinus bradycardia [...] longer Present Confirmed by Butch Soto MD ([id number]) on 11/01/2023 8:58:01 PM MUSE SYSTEM 10/30/2023 10:4 0 PM EDT 11/01/2023 8:58 PM EDT Rosa Cornejo MD ECG ORDERABLES MUSE SYSTEM * XR Chest One View (10/30/2023 10:10 PM EDT) WORKSTATION ID [id number] DH RAD Anatomical Region Laterality Modality Chest [...] and low lung volumes. Findings similar to geological scout radiograph from CT 10/30/2023. Thank you for letting us participate in the care of this patient. ??If you are a health care provider and have any questions regarding this report, please contact the number below. ??For patients who have questions please contact the health intensive care anaesthetist that requested your imaging first. ? Electronically signed by: Wilson Mccartney MD, [facility] ([phone]), at 10/30/2023 10:32 PM Narrative 10/30/2023 10:32 PM EDT EXAMINATION: XR [...] and low lung volumes. Findings similar to geological scout radiograph from CT 10/30/2023. Thank you for letting us participate in the care of this patient. If youare a health care provider and have any questions regarding this report,please contact the number below. For patients who have questions please contactthe health intensive care anaesthetist that requested your imaging first. Rosa Cornejo MD IMG DX ORDERABLES * Green Tube HOLD (10/30/2023 10:05 PM EDT) [facility] Green Hold Sample in lab. [facility] Blood Venous Draw / Unknown 10/30/2023 10:05 PM EDT 10/30/2023 10:13 PM EDT Qamar Gallardo MD CHEMISTRY ORDERABLES [facility] [place] [address] * (ABNORMAL) Differential, Automated (10/30/2023 10:05 PM EDT) Pathologist [facility] Neutrophil % 76.6 % [facility] Neutrophil Absolute 6.94(H) 1.70 - 6.10 x10(3)/mc L [facility] Lymph % 15.4 % [facility] Lymphocytes Abs 1.4 0.9 - 3.2 x10(3)/mc L [facility] Monocyte % 6.1 % [facility] Monocyte Abs 0.6 0.3 - 0.9 x10(3)/mc L [facility] Eos % 1.1 % [facility] Eosinophils Abs 0.1 0.0 - 0.4 x10(3)/mc L [facility] Basophil % 0.6 % [facility] Baso Absolute 0.0 0.0 - 0.1 x10(3)/mc L [facility] Immature Gran % 0.20 % [facility] Comment: Immature granulocytes(IG's)percentage and absolute count will include metamyelocytes, myelocytes, and promyelocytes. Blood smears from CBCs yielding IG's will be scanned manually for concordance. If this scan disagrees with the automated IG or if promyelocytes are noted, a manual differential will be performed. Immature Gran Absolute 0.02 0.00 - 0.04 x10(3)/ L [facility] Blood 10/30/2023 10:0 5 PM EDT 10/30/2023 10:12 PM EDT Narrative Resulting Agency Comment Spec In Lab Qamar Gallardo MD HEMATOLOGY ORDERABLE S Performing Organization Address City/State/[facility] Co de Phone Number [facility] [place] [address] * (ABNORMAL) Hemogram (10/30/2023 10:05 PM EDT) White Blood Cell 9.0 4.0 - 9.5 x10(3)/ L [facility] Red Blood Cell 3.96(L) 4.00 - 5.21 x10(6)/mc L [facility] Hemoglobin 13.3 11.7 - 15.5 g/dL [facility] Hematocrit 39.1 35.7 - 45.8 % [facility] Mean Cell Volume 98.7(H) 82.6 - 94.4 fL [facility] Mean Cell Hemoglobin 33.6(H) 27.1 - 32.0 pg [facility] Mean Cell Hemoglobin Concentration 34.0 31.7 - 35.0 g/dL [facility] Platelet 211 145 - 357 x10(3)/mc L [facility] RDW Standard Deviation 53.6(H) 37.0 - 46.0 fL [facility] RDW coefficient of variation 14.6(H) 11.5 - 14.1 % [facility] Mean Platelet Volume 11.1 7.6 - 12.9 fL [facility] NRBC% auto 0.0 % [facility] NRBC Absolute 0.000 0.000 - 0.000 x10(3)/mc L [facility] Blood 10/30/2023 10:0 5 PM EDT 10/30/2023 10:12 PM EDT Narrative Resulting Agency Comment Spec In Lab Qamar Gallardo MD HEMATOLOGY ORDERABLE S Performing Organization Address City/[facility]/ZIP Co de Phone Number [facility] [place] [address] * Hemoglobin A1c (10/30/2023 10:05 PM EDT) Hemoglobin A1c 5.5 4.3 - 5.6 % [facility] Comment: Reference Range: 4.3 [...] [id number] Estimated Average Glucose See note mg/dL [facility] Comment: Estimated Average Glucose not appropriate for patients over 70 years of age. Blood 10/30/2023 10:0 5 PM EDT 10/30/2023 10:12 PM EDT Narrative Resulting Agency Comment Spec In Lab Rosa Cornejo MD CHEMISTRY ORDERABLE S [facility] [place] [address] * Lipid Panel (Reflex Direct LDL) (10/30/2023 10:05 PM EDT) [facility] Cholesterol, Total 218 mg/dL Dorene THURMAN [facility] Comment: Desirable: ? <200 mg/dL Borderline High: 200-239 mg/dL Higher: ?>yh=756 mg/dL Triglyceride 46 mg/dL [facility] Comment: Normal: ?<150 mg/dL Borderline High: 150-199 mg/dL High: ?200-499 mg/dL Very High: ? >ru=480 mg/dL HDL Cholesterol 64 mg/dL [facility] Comment: Females: High Risk: <50 mg/dL Males: High Risk: <40 mg/dL LDL Cholesterol 145 mg/dL [facility] Comment: Desirable: ? <100 mg/dL Above Desirable: 100-129 mg/dL Borderline High: 130-159 mg/dL High: ?160-189 mg/dL Very High: ? >mb=883 mg/dL Lipid Interpretation See Note [facility] Comment: It is important [...] ACC/AHA Guidelines (most recently Feliciano et al. JACC 03/23/22): For individuals with atherosclerotic cardiovascular disease (ASCVD)or LDL >ln=922 mg/dL, use a high-intensity statin (40-80 mg [...] MD CHEMISTRY ORDERABLE S Performing Organization Address [facility] Co de Phone Number [facility] [place] [address] * TSH [place] (10/30/2023 10:05 PM EDT) Thyroid Stimulating Hormone 3.35 0.27 - 4.20 mcIU/mL [facility] Comment: Reference Interval (mcIU/mL): Females: ??First Trimester: 0.23-3.88 ??Second Trimester: 0.22-3.90 ??Third Trimester: 0.44-4.66 Blood 10/30/2023 10:0 5 PM EDT 10/30/2023 10:12 PM EDT Narrative Resulting Agency Comment Spec In Lab Rosa Cornejo MD CHEMISTRY ORDERABLE S Performing Organization Address [facility]/ZIP Co de Phone Number [facility] [place] [address] * pro-Brain Natriuretic Peptide (10/30/2023 10:05 PM EDT) NT-proBNP 375 <=449 pg/mL [facility] Blood 10/30/2023 10:0 5 PM EDT 10/30/2023 10:12 PM EDT Narrative Resulting Agency Comment Spec In Lab Rosa Cornejo MD CHEMISTRY ORDERABLE S [facility] [place] [address] * (ABNORMAL) Comprehensive metabolic panel (non-fasting) (10/30/2023 10:05 PM EDT) Pathologist [facility] Glucose 121 65 - 199 mg/dL [facility] Comment:Diabetes: >=200 mg/d L plus symptoms Blood Urea Nitrogen 14 8 - 18 mg/dL [facility] Creatinine 0.85 0.70 - 1.20 mg/dL [facility] Sodium 142 135 - 145 mmol/L [facility] Potassium 3.9 3.5 - 5.0 mmol/L [facility] Comment: Please note: ??Patients with WBC >100,000 may have falsely elevated Potassium levels. ??For accurate Potassium quantification in these patients send serum separator tube (gold top) for subsequent determinations. ??Contact the Clinical Chemistry Laboratory if there are any questions. Chloride 105 98 - 107 mmol/L [facility] Carbon Dioxide 27 22 - 31 mmol/L [facility] Anion Gap 10 5 - 15 mmol/L [facility] Calcium 8.8 8.5 - 10.5 mg/dL [facility] Protein, Total 6.5 6.1 - 8.0 g/dL [facility] Albumin 4.2 3.2 - 5.2 g/dL [facility] Aspartate Aminotransferase 36(H) 0 - 30 unit/L [facility] Alanine Aminotransferase 17 0 - 30 unit/L [facility] Alkaline Phosphatase 54 35 - 105 unit/L [facility] Bilirubin, Total 0.5 0.2 - 1.3 mg/dL [facility] Est Glomerular Filtration Rate 68 >=60 mL/min/1. 73 m?? [facility] Comment: This patient's estimated [...] MD CHEMISTRY ORDERABLE S Performing Organization Address City/[facility]/ZIP Co de Phone Number [facility] [place] [address] * Phosphorus (10/30/2023 10:05 PM EDT) Phosphorus 3.3 2.5 - 4.5 mg/dL [facility] Blood 10/30/2023 10:0 5 PM EDT 10/30/2023 10:12 PM EDT Narrative Resulting Agency Comment Spec In Lab Rosa Cornejo MD CHEMISTRY ORDERABLE S [facility] [place] [address] * Magnesium (10/30/2023 10:05 PM EDT) Magnesium 0.86 0.69 - 1.07 mmol/L [facility] Blood 10/30/2023 10:0 5 PM EDT 10/30/2023 10:12 PM EDT Narrative Resulting Agency Comment Spec In Lab Rosa Cornejo MD CHEMISTRY ORDERABLE S Performing Organization Address City/[facility]/ZIP Co de Phone Number [facility] [place] [address] * (ABNORMAL) Troponin (10/30/2023 10:05 PM EDT) Troponin-T, High Sensitivity 214(H) <=14 ng/L [facility] Comment: This patient's troponin [...] troponin value can be found in the [facility] Laboratory Test Catalog Troponin - [facility] Laboratory Test Catalog Reference: Fourth [place] Definition of Myocardial Infarction. Journal of the [place] [employer] 2018;72:7229-9619 Blood 10/30/2023 10:0 5 PM EDT 10/30/2023 10:12 PM EDT Narrative Resulting Agency Comment Spec In Lab Rosa Cornejo MD CHEMISTRY ORDERABLE S Performing Organization Address City/[facility]/ZIP Co de Phone Number [facility] [place] [address] * EKG 12 Lead (10/30/2023 8:21 PM EDT) Ventricular rate 49 BPM MUSE SYSTEM Atrial Rate 49 BPM MUSE SYSTEM P-R Interval 230 ms MUSE SYSTEM QRS Duration 96 ms MUSE SYSTEM Q-T Interval 526 ms MUSE SYSTEM QTC Calculated (Bezet) 475 ms MUSE SYSTEM Calculated P [place] 98 degrees MUSE SYSTEM Calculated R [place] -48 degrees MUSE SYSTEM Calculated T [place] -51 degrees MUSE SYSTEM INTERPRETATION Sinus bradycardia with 1st degree A-V block Incomplete right bundle branch block Left anterior fascicular block Moderate voltage criteria for LVH, may be normal variant ( R in aVL , [place] product ) T wave abnormality, consider inferior ischemia T wave abnormality, consider anterolateral ischemia Prolonged QT Abnormal ECG When compared with ECG of 01-SEP-2007 11:02, Incomplete right bundle branch block is now Present Confirmed by MD NEFTALI, CHIDI ([id number]) on 10/31/2023 10:45:41 AM MUSE SYSTEM 10/30/2023 8:21 PM EDT 10/31/2023 10:45 AM EDT Rosa Cornejo MD ECG ORDERABLES MUSE SYSTEM documented in this encounter Visit Diagnoses Not on filedocumented in this encounter Admitting Diagnoses Diagnosis Unstable angina Intermediate coronary syndrome documented in this encounter Administered Medications Inactive Administered Medications - up to 3 most recent administrations Medication Order AUG Action Action Date Dose Rate Site acetaminophen [...] Given 10/31/2023 11:52 PM EDT 650 mg aspirin EC tablet 81 mg 81 [...] Urinary Tract/Pyelonephritis Given 11/03/2023 10:20 AM EDT 20 0 mg clopidogreL (Plavix) tablet 75 mg 75 mg, Oral, DAILY, First dose on Tue11/02/23 at 0900, Until Discontinued, Recovery (Recovery-Hospital Unit), Routine Given 11/03/2023 8:17 AM EDT 7 5 mg Given 11/02/2023 9:37 AM EDT 75 mg fentaNYL (pf) (50 mcg/mL) multi-dose injection PRN, Starting on Tue11/01/23 at 1346, Until Tue11/01/23 at 1548, Intra-Operative (Intra-Procedure), Routine Given 11/01/2023 2:55 PM EDT 25 mcg Given 11/01/2023 1:46 PM EDT 25 mcg heparin (porcine) (1,000 units/mL) injection PRN, Starting on Tue11/01/23 at 1359, Until Tue11/01/23 at 1548, Intra-Operative (Intra-Procedure), Routine Given 11/01/2023 2:39 PM EDT 1,000 Units Given 11/01/2023 2:14 PM EDT 2,000 Units Given 11/01/2023 1:59 PM EDT 5,000 Units heparin (porcine) (5,000 units/1 mL) subcutaneous injection [...] Given 11/01/2023 4:28 PM EDT 10 mg iohexoL (Omnipaque) (350 mg/mL) solution PRN, Starting on Tue11/01/23 at 1504, Until Tue11/01/23 at 1548, Intra-Operative (Intra-Procedure), Routine Given 11/01/2023 3:04 PM EDT 152 mLs lidocaine (Lidoderm) 5% patch 1 patch 1 [...] Given 11/02/2023 9:37 AM EDT 50 mg metoprolol succinate XL (Toprol-XL) tablet 12.5 mg 12.5 mg, Oral, DAILY, First dose (after last modification) on Tue11/03/23 at 1015, Until Discontinued, DO NOT CRUSH OR OPEN, Routine Given 11/03/2023 10:20 AM EDT 12.5 mg midazolam (pf) (Versed) (1 mg/mL) multi-dose injection PRN, Starting on Tue11/01/23 at 1346, Until Tue11/01/23 at 1548, Intra-Operative (Intra-Procedure), Routine Given 11/01/2023 1:46 PM EDT 1 mg sodium chloride 0.9 % (flush) (BD PosiFlush Normal Saline 0.9) flush 5 mL 5 mL, Intravenous, 2 TIMES DAILY, First dose on Tue10/30/23 at 2300, Until Discontinued, Routine Given 11/03/2023 8:20 AM EDT 5 mLs Given 11/02/2023 8:13 PM EDT 5 mLs Given 11/02/2023 9:00 AM EDT 5 mLs spironolactone (Aldactone) tablet 25 mg 25 mg, [...] indicated., Routine 0225 (Given - Provider: Danica Shipley RN) aspirin EC tablet 81 mg (CANCELED) 81 mg, Oral, DAILY, First dose on Tue10/31/23 at 0900, Until Discontinued, Recovery (Recovery-Hospital Unit), Routine 0939 (Given - Provider: Mary Sweeney RN) aspirin EC tablet 81 mg 81 mg, Oral, DAILY, First dose on Tue11/02/23 at 0900, Until Discontinued, Recovery (Recovery-Hospital Unit), Routine 0937 (Given - Provider: Mary Sweeney RN) 0816 (Given - Provider: Lucretia Thurman RN) atorvastatin (Lipitor) tablet 80 mg 80 mg, Oral, EVERY EVENING, First dose on Tue10/30/23 at 2245, Until Discontinued, Routine 1333 (AUG Hold - Provider: Admin Adt - Reason: Transfer to a Procedural area)1548 (AUG Unhold - Provider: Admin Adt)1848 (Given - Provider: Mary Sweeney RN)2019 (Given - Provider: Danica Shipley RN) 1730 (Given - Provider: Mary Sweeney RN) 1621 (Given - Provider: Moshe Pope RN) cefPODOXime (Vantin) tablet 200 mg 200 mg, Oral, 2 TIMES DAILY, First dose on Amna 11/03/23 at 1030, Until Discontinued, Routine, Indication for (Active or Suspected): Urinary Tract/Pyelonephritis 1020 (Given - Provider: Lucretia Thurman RN) cefTRIAXone (Rocephin) 1 g vial attach to [...] Sweeney RN) 0817 (Given - Provider: Lucretia Thurman RN) heparin (porcine) (5,000 units/1 mL) subcutaneous injection 5,000 Units 5,000 Units, Subcutaneous, EVERY 8 HOURS SCHEDULED, First dose on Tue10/30/23 at 2300, Until Discontinued, Routine 0526 (Given - Provider: Danica Shipley RN)1333 (AUG Hold - Provider: Admin Adt - Reason: Transfer to a Procedural area)1548 (AUG Unhold - Provider: Admin Adt)1845 (Not Given - Provider: Mary Sweeney RN - Reason: Contraindicated - Comment: PT still bleeding for fem site)2200 (Hold - Provider: Danica Shipley RN - Reason: See comment - Comment: L groin bleeding) 0529 (Given - Provider: Danica Shipley RN)1516 (Given - Provider: Mary Sweeney RN)2013 (Given - Provider: Danica Shipley RN) 0607 [...] Provider: Admin Adt)1848 (Given - Provider: Mary Sweeney RN)2018 (Given - Provider: Danica Shipley RN) 0937 (Given - Provider: Mary Sweeney RN) lidocaine (Lidoderm) 5% patch 1 patch 1 patch, Transdermal, Administer over 12 Hours, EVERY 24 HOURS, First dose on Tue11/02/23 at 1445, Until Discontinued, Apply patch(es) for 12 hours, and then remove for [address]. [address] on patients upper left back where she has pain., Routine 1445 (Patch Applied - Provider: Mary Sweeney RN) 0245 (Patch Removed - Provider: Danica Shipley RN)1435 (Patch Applied - Provider: Moshe Pope [...] 1 g, Intravenous, ONCE, 1 dose, On Amna 11/03/23 at 0900, Administer over 60 Minutes 0825 (New Bag - Provider: Lucretia Thurman, TANESHA)0925 (Stopped - Provider: Lucretia Thurman, TANESHA) metoprolol succinate XL (Toprol-XL) tablet 12.5 mg 12.5 mg, Oral, DAILY, First dose (after last modification) on Amna 11/03/23 at 1015, Until Discontinued, DO NOT CRUSH [...] TANESHA)1350 (New Bag - Provider: Lolly Leblanc, TANESHA)1659 (Stopped - Provider: Mary Sweeney, TANESHA)1700 (New [...] Procedural area)1548 (MAR Unhold - Provider: Admin Adt)2018 (Given - Provider: Danica Shipley, RN) 0900 (Given - Provider: Mary Sweeney RN)2012 (Given - Provider: Danica Shipley RN) 0820 (Given - Provider: Lucretia Thurman, TANESHA) spironolactone (Aldactone) tablet 12.5 mg (CANCELED) 12.5 mg, Oral, DAILY, First dose on Tue11/01/23 at 1045, Until Discontinued, DO NOT SPLIT, CRUSH OR OPEN, Routine 1107 (Given - Provider: Mary Sweeney RN)1333 (MAR Hold - Provider: Admin Adt - Reason: Transfer to a Procedural area)1548 (MAR Unhold - Provider: Admin Adt) spironolactone (Aldactone) tablet 25 mg 25 mg, Oral, DAILY, First dose (after last modification) on Tue11/02/23 at 1000, Until Discontinued, DO NOT SPLIT, CRUSH OR OPEN, Routine 0937 (Given - Provider: Mary Sweeney RN) 0817 (Given - Provider: Lucretia Thurman RN) Continuous Medication Order 11/01/2023 11/02/2023 11/03/2023 sodium [...] indicated., Routine 1144 (Given - Provider: Mary Sweeney, TANESHA)1333 (AUG Hold - Provider: Admin Adt - Reason: Transfer to a Procedural area)1548 ([facility] Unhold - Provider: Admin Adt) fentaNYL (pf) (50 mcg/mL) multi-dose injection (CANCELED) PRN, Starting on Tue11/01/23 at 1346, Until Tue11/01/23 at 1548, Intra-Operative (Intra-Procedure), Routine 1346 (Given - Provider: Jason Jimenes RN)1455 (Given - Provider: Jean Oliveira RN) heparin (porcine) (1,000 units/mL) injection (CANCELED) PRN, Starting on Tue11/01/23 at 1359, Until Tue11/01/23 at 1548, Intra-Operative (Intra-Procedure), Routine 1359 (Given - Provider: Jean Oliveira RN)1414 (Given - Provider: Parisa Kowalski RN)1439 (Given [...] - Reason: Transfer to a Procedural area)1548 ([facility] Unhold - Provider: Admin Adt) midazolam (pf) (Versed) (1 mg/mL) multi-dose injection (CANCELED) PRN, Starting on Tu11/01/23 at 1346, Until Tu11/01/23 at 1548, Intra-Operative (Intra-Procedure), Routine 1346 (Given [...] last 24 to 72 hours., Routine 1333 (MAR Hold - Provider: Admin Adt - Reason: Transfer to a Procedural area)1548 (MAR Unhold - Provider: Admin Adt) sodium chloride 0.9 % (flush) (BD PosiFlush Normal Saline 0.9) flush 5-20 mL 5-20 mL, Intravenous, EVERY 1 MIN PRN, Starting on 10/30/23 at 2208, Until Amna 11/03/23 at 1913, flush, Flush pertains to all indwelling lines. Flush per protocol found in the job aid using the link provided on this medication record., Routine 1333 (MAR Hold - Provider: Admin Adt - Reason: Transfer to a Procedural area)1548 (MAR Unhold - Provider: Admin Adt) documented in this encounter Additional Health Concerns Infection Onset Date Last Indicated Resolved Time Rule Out Respiratory 11/02/2023 11/02/2023 024 12:22 PM EDT Rule Out COVID-19 11/02/2023 11/02/2023 11/02/2023 12:22 PM EDT documented as of this encounter Care Teams Wire Repairer Relationship Specialty Start Date End Date Rosie Mathews MD [address] [place] [id number] PCP - General Family Medicine 11/25/17 11/23/23 documented as of this encounter
--- OUTSIDE RECORDS SUMMARY | 2024-01-27 11:18 | XMS_ITS | Encounter Summary ---
Author Organization [facility] Address [address] [place] [address] Care Team Providers Care Lead Sewage Plant Operator Name Role Phone Kirsten Bateman MD Primary Care Provider [phone] Reason for Visit * Reason Comments Hearing Loss tinnitus Encounter Details Date Type Department Care Team (Latest Contact Info) Description 01/15/2010 10:10 EDT Office Visit [address] [address] Unknown, ProviderMD Ray Farooq MD [address] [place] [address] [address] Sensorineural hearing loss, bilateral; Subjective tinnitus Social History Tobacco Use Types Packs/Day Years Used Date Smoking Tobacco: Never Alcohol Use Standard Drinks/Week Comments No 0 (1 standard drink = 0.6 oz pur e alcohol) Sex and Gender Information Value Date Recorded Sex Assigned at Not on file Gender Identity Not on file Sexual Orientation Not on file documented as of this encounter Progress Notes * Ray Farooq MD - 01/28/2010 1108 EDT [facility] PROGRESS/FOLLOWUP NOTE - 01/15/2010 CHIEF COMPLAINT: Hearing loss. HISTORY OF PRESENT ILLNESS: A 69-year-old female with a history of bilateral sensorineural hearing loss. Also complains of some tinnitus, usually when it is quiet at night. Treated with increased background noise by turning on the radio or television. Symptoms are of mild severity. No vertigo, pain, drainage or other ear symptoms. Her past medical history, family history, social history and review of systems are reviewed and unchanged except for she is quitting work in April, and she has also recently lost 10 pounds intentionally. OBJECTIVE: Ears: External ears are normal. Canals are clear. The tympanic membranes are normal. An audiogram was performed, which reveals a bilateral high-frequency sloping sensorineural hearing loss, unchanged from audiogram 2 years ago. She has good word discrimination and normal impedance. ASSESSMENT: Bilateral sensorineural hearing loss. Tinnitus PLAN: Instruction material on tinnitus was given to the patient and hearing aid clearance was againwritten for the patient although she is still not interested in getting hearing aids at this time. Will, therefore, follow up with ENT with repeat audiogram in 2 years or p.r.n. Electronically Signed by Ray Farooq MD 01/28/2010 11:08 Ray Farooq MD - Ray Farooq MD - [facility] [place] Job ID: SM Doc ID: [id number] Ext Doc ID: [id number] cc: Kirsten Bateman MD * Ray Farooq MD - 01/15/2010 1017 EDT This office note has been dictated. documented in this encounter Miscellaneous Notes * Scanned Note-Null - Inpatient, Physician - 01/16/2010 1648 EDT documented in this encounter Plan of Treatment Not on file documented as of this encounter Visit Diagnoses Diagnosis Sensorineural hearing loss, bilateral Subjective tinnitus documented in this encounter Care Teams Lead Sewage Plant Operator Relationship Specialty Start Date End Date Kirsten Bateman MD [address] [place] [address] PCP - General 01/13/10 documented as of this encounter
--- OUTSIDE RECORDS SUMMARY | 2024-01-27 11:18 | XMS_ITS | Encounter Summary ---
Author Organization [facility] [place] [address] Care Team Providers Care Soldering Technician Name Role Phone Rosie Mathews MD Primary Care Provider [phone] Reason for Visit * Auth/Cert (Routine) Specialty Diagnoses / Procedures Referred By Contac t Referred To Contact Diagnoses Unstable angina Chest pain NSTEMI Procedures CARDIAC CATHETERIZATION Rosa Dewey MD [facility] [place] [address] [facility] [place] Referral ID Status Reason Start Date Expiration Date Visits Re quested Visits Authorized [id number] 1 1 Encounter Details Date Type Department Care Team (Late st Contact Info) Description 10/30/2023 4:25 PM EDT - 10/30/2023 5:27 PM EDT Surgery [place] [address] Rosa Dewey MD [facility] [address] [place], [place] [id number] CARDIAC CATHETERIZATION Social History Tobacco Use Types Packs/Day Years Used Date Smoking Tobacco: Former Smokeless Tobacco: Never Alcohol Use Standard Drinks/Week Comments Not Currently 0 (1 standard drink = 0.6 oz pur e alcohol) [facility] Inpatient Questions Answer Date Recorded Does Anyone [...] on file documented as of this encounter Discharge Summaries * Elmer Tamez [...] for hypertension and hyperlipidemia who presented to [facility] as a transfer from [facility] as a possible STEMI alert with acute onset chest pain. The patient reports that her symptoms initially began on Tuesday when she was walking to [facility] and experienced bilateral arm heaviness while walking with no other symptoms. Then, this afternoon shereports developing bilateral achy shoulder pain and nonradiating substernal left-sided chest pressure that was 7/10 in severity after coming home from [facility]. The patient denies any associated fevers, chills, diaphoresis, lightheadedness/dizziness, syncope/presyncope, dyspnea (either at rest or on exertion), palpitations, orthopnea, or PND. The patient subsequently presented to [facility] as a walk-in for further evaluation. Upon presentation to outside hospital, the patient was afebrile, heart rate 71, hypertensive (BP 217/68), and was saturating 96% in room air. CBC within normal limits. CMP significant for creatinine of 1.2 and BUN of 19. Troponin was negative x 2. Initial ECG was concerning for possible STEMI with inferior JAMIE, although on repeat, her JAMIE resolved. Cardiology at [facility] was consulted for transfer; the patient was loaded with aspirin 324 mg and ticagrelor 180 mg, started on a heparin drip, and given nitroglycerin with improvement in chest pain. Upon arrival to [facility], the patient was taken directly to the Breakdown Worker. Two lesions were discovered: one in the prox RCA (felt to almost be a INTERNET SOURCER but they were able to wire, balloon, [...] Data: Admission Labs: Discharge Labs: Recent Labs 11/03/23 0346 11/02/23 0035 11/01/236 11/01/23 0309 10/31/23 0305 WBC 8.3 10.0* 10.4* 8.7 11.5* HGB 13.1 13.8 14.0 12.5 12.6 PLATELET 181 198 197 184 206 Recent Labs 11/03/23 03411/02/23 0035 11/01/23 0309 10/31/23 0137 10/30/23 2205 NA 139 136 137 140 142 K 4.0 3.6 3.4* 3.9 3.9 CL 108* 102 105 107 105 CO2 19* 25 24 25 27 BUN 13 9 14 13 14 CREATININE 0.83 0.83 0.83 0.81 0.85 GLUCOSE 105 125 100 114 121 Recent Labs 11/03/23 0346 11/02/23 0035 11/01/23 0309 CALCIUM 8.2* 9.0 8.6 [...] dose administered prior to arrival in the outside laborer. Recommended anti-platelet/anti-thrombotic regimen: Continue aspirin 81 mg [...] and low lung volumes. Findings similar to locomotive firer/fireman radiograph from CT 10/30/2023. Pending Studies and [...] 10:40 AM Izaiah Meyer MD Cardiology at [place] Arrive at: [facility] [address] [phone] Future Orders Complete By Expires Referral to Cardiac Rehab [[id number] Custom] As directed Process Instructions: If no progress note charted, please enter Clinical details in comments. Scheduling Instructions: Questions: My question or request is: STEMI. Cardiac rehab at [facility]. Referral to Home Health [[id number] Custom] As directed Process Instructions: If no progress note charted, please enter Clinical details in comments. Scheduling Instructions: Comments: Please evaluate Adin Santos for admission to Home Health. [address] [place] [address] [place] [phone] (home) Date of : 1940 Inpatient DOCUMENTATION FOR VNA SERVICES (INCLUDING THOSE PATIENTS WITH MEDICARE COVERAGE REQUIRING HOME VNA SERVICES AND/OR HOSPICE SERVICES) PATIENT'S LOCATION: Adin Santos [address] [facility] [phone] (home) Cell: Telephone Information: Shingles Roofer's Name: self In discussion with the attending physician, it is certified that this patient is under their care and that they, or a Nurse Practitioner, Clinical Nurse specialist or Physician Child Care Education Coordinator who is working directly with them, had [...] regarding health issues HOME HEALTH CARE AGENCY: [facility] [address] [place] [address] START OF CARE: within 24-48 hours of [...] Rosie Mathews MD [address] / [facility] [address] . All A agencies which cover the [...] MD / Dr. Masood Pierson [address] [place] [address] 11/09/23 1:55 PM arrival for 2:10 PM appointment Rail Operator: Izaiah Meyer MD [address] [place] [address] , 11/24/2023 10:40 AM Your Inpatient Medical Team at [facility] Name(s) of your inpatient provider(s): Attending physician: Rosa Hugo MD Resident physicians: Emile Robles MD; Elmer Tamez MD If you have non-emergent questions, prior to your follow-up visit call: Tuesday-Tuesday between the hours of 8AM-5PM please call the Cardiology Clinic [phone] to speak with a nurse. All other hours please call the Hospital Flight Radio Officer [phone] and ask to speak to the filter press pumper on-call. Your Primary Care Provider Rosie Mathews MD [phone] For questions regarding this document or issues relating to this hospitalization on the Medical Service, please contact your inpatient physician through the [facility] Flight Radio Officer . Issues afterhours and on weekends will be handled by the Rail Operator staff on-call. Associated attestation - Rosa Hugo [...] MD / Dr. Masood Pierson [address] [place] [address] 11/09/23 1:55 PM arrival for 2:10 PM appointment Rail Operator: Izaiah Meyer MD [address] [place] [address] , 11/24/2023 10:40 AM Your Inpatient Medical Team at [facility] Name(s) of your inpatient provider(s): Attending physician: Rosa Hugo MD Resident physicians: Emile Robles MD; Elmer Tamez MD If you have non-emergent questions, prior to your follow-up visit call: Tuesday-Tuesday between the hours of 8AM-5PM please call the Cardiology Clinic [phone] to speak with a nurse. All other hours please call the Hospital Flight Radio Officer [phone] and ask to speak to the filter press pumper on-call. Your Primary Care Provider Rosie Mathews MD [phone] documented in this encounter Medications at Time [...] for hypertension and hyperlipidemia who presented to [facility] as a transfer from [facility] as a possible STEMI alert [...] 17 ALKPHOS 54 BILITOT 0.5 Recent Labs 11/02/23 0035 11/01/23 0309 10/31/23 0137 CALCIUM 9.0 8.6 8.6 MAGNESIUM 0.87 [...] for hypertension and hyperlipidemia who presented to [facility] as a transfer from [facility] as a possible STEMI alert [...] Resident on Cardiology Service Cardiology S1 (Pager [phone]) Note written in conjunction with Claudio Perla [facility] Medical Student, MS3 Associated attestation - [...] Nirmala Webb - 11/01/2023 11:25 AM EDT Drum Stenciler Encounter Note Patient Name: Adin Santos : [id number] MR#: [id number] Admit Date: 10/30/2023 5:11 PM Hospital Day 2 days Narrative: Self initiated visit to patient for Spiritual support in a regular unit rounds. Assessment: Patient is in the bathroom at the time of this visit. Not a good time for Conveyor Line Battery Charger visit. Intervention and Outcome: An attempted visit [...] for hypertension and hyperlipidemia who presented to [facility] as a transfer from [facility] as a possible STEMI alert [...] for the past 168 hrs: Weight 11/01/23 005 70.8 kg (156 lb 1.6 oz) 10/31/23529 [...] and low lung volumes. Findings similar to locomotive firer/fireman radiograph from CT 10/30/2023. Scheduled Medications: [MAR Hold] spironolactone 12.5 mg Oral Daily [MAR Hold] hydrALAZINE 10 mg Oral TID aspirin EC 81 mg Oral Daily clopidogreL 75 mg Oral Daily [AUG Hold] atorvastatin 80 mg Oral QPM [AUG Hold] sodium chloride 0.9 % (flush) 5 mL Intravenous BID [AUG Hold] heparin (porcine) 5,000 Units Subcutaneous Q8H ERIC PRN Medications: midazolam (PF), fentaNYL (PF), heparin (porcine), [MAR Hold] acetaminophen, [MAR Hold] sodium chloride 0.9 % (flush), [MAR Hold] lidocaine, [MAR Hold] nitroGLYcerin Assessment/Plan: Adin Santos is a 83 y.o. female PMH significant for hypertension and hyperlipidemia who presented to [facility] as a transfer from [facility] as a possible STEMI alert [...] Resident on Cardiology Service Cardiology S1 (Pager [phone]) Note written in conjunction with Claudio Perla [facility] Medical Student, MS3 Associated attestation - Rosa Hugo MD - 11/01/2023 2:24 PM EDT I [...] for hypertension and hyperlipidemia who presented to [facility] as a transfer from [facility] as a possible STEMI alert with acute onset chest pain. Active Problems: Active Hospital Problems Diagnosis Unstable angina Resolved Hospital Problems No resolved problems to display. 24 hr events: - Cath'd yesterday with lesion in the proximal RCA (initially thought it was INTERNET SOURCER but they were ableto wire, balloon and [...] Vitals for the past 168 hrs: Weight 10/31/23529 73.9 kg (162 lb 14.7 oz) [...] 39.1 PLATELET 206 204 211 Recent Labs 10/31/23 01310/30/232204 NA 140 142 K 3.9 3.9 CL 107 105 CO2 25 27 BUN 13 14 CREATININE 0.81 0.85 Recent Labs 10/30/23 2205 AST 36* ALT 17 ALKPHOS 54 BILITOT 0.5 Recent Labs 10/31/23 0137 10/30/23 220 CALCIUM 8.6 8.8 MAGNESIUM 0.83 0.86 [...] and low lung volumes. Findings similar to locomotive firer/fireman radiograph from CT 10/30/2023. TTE (10/30): Interpretation [...] for hypertension and hyperlipidemia who presented to [facility] as a transfer from [facility] as a possible STEMI alert [...] Resident on Cardiology Service Cardiology S1 (Pager [phone]) Note written in conjunction with Claudio Perla [facility] Medical Student, MS3 Associated attestation - [...] PCP: Rosie Mathews MD PCP phone number: [phone] Date of Admission: 10/30/2023 ( Hospital Day 0 days ) Attending:Rosa Cornejo MD ID: Adin Satnos is a 83 y.o. female PMH significant for hypertension and hyperlipidemia who presented to [facility] as a transfer from [facility] as a possible STEMI alert with acute onset chest pain. The patient reports that her symptoms initially began on Tuesday when she was walking to [facility] and experienced bilateral arm heaviness while walking with no other symptoms. Then, this afternoon shereports developing bilateral achy shoulder pain and nonradiating substernal left-sided chest pressure that was 7/10 in severity after coming home from [facility]. The patient denies any associated fevers, chills, diaphoresis, lightheadedness/dizziness, syncope/presyncope, dyspnea (either at rest or on exertion), palpitations, orthopnea, or PND. The patient subsequently presented to [facility] as a walk-in for further evaluation. Upon presentation to outside hospital, the patient was afebrile, heart rate 71, hypertensive (BP 217/68), and was saturating 96% in room air. CBC within normal limits. CMP significant for creatinine of 1.2 and BUN of 19. Troponin was negative x 2. Initial ECG was concerning for possible STEMI with inferior JAMIE, although on repeat, her JAMIE resolved. Cardiology at [facility] was consulted for transfer; the patient was loaded with aspirin 324 mg and ticagrelor 180 mg, started on a heparin drip, and given nitroglycerin with improvement in chest pain. Upon arrival to [facility], the patient was taken directly to the Breakdown Worker. 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 Findings similar to locomotive firer/fireman radiograph from CT 10/30/2023. Assessment & Plan: Adin Santos is a 83 y.o. female PMH significant for hypertension and hyperlipidemia who presented to [facility] as a transfer from [facility] as a possible STEMI alert with acute onset chest pain. The patient was initially transferred as a STEMI alert, given inferior JAMIE on ECG at the outside hospital. However, biomarkers remained negative prior to cath and her JAMIE resolved with resolution of chest pain after [...] HTN HLD transferred with chest from [facility]. BP 217/68, HR [address] [...] information for follow-up [facility], [place] [address] TANESHA BOYCE confirmed with Brittany CARVAJAL that they will see the patient within 24-48 hours of discharge for start of care. Transportation: family or friend will provide Wheelchair van/Ambulance? No Functional status prior to admission: Assistive Equipment Home Environment: Others in the home: alone. Current Living Arrangements: home/apartment/condo. Accessibility Concerns:1st floor apartment in halfway community; handicapped accessible. Current Functional Ability: Assistive Equipment DME used at home: cane - straight, grab bar - tub/shower, grab bar - toilet, raised toilet seat DME Needed at Discharge: N/A Patient is insured through: Primary Insurance: [employer]GED MEDICARE Payor: [employer] [...] in the room. Electrolytes replaced, see MAR. director of labor and delivery sites remained C/D/I with baseline ecchymosis unchanged. Pt complained of back pain, lidocaine patch given. Right IV infiltrated during infusion, patient is marked with sharpie, IV removed. See flowsheet for I+O's and safety rounding. Patient is able to make needs known and call capps within reach. PLAN MOVING FORWARD: Monitor Tele, control BP, monitor outside laborer sites, D/C Planning INDIVIDUALIZED FALL PREVENTION INTERVENTIONS: [...] Rayo RN - 11/02/2023 11:36 AM EDT Adinmarco a Santos was seen today by Cardiac Rehabilitation [...] an outpatient cardiac rehabilitation program at [facility] was discussed. Patient agrees to a referral [...] and above on RA. PT went to outside laborer today. Left fem site oozed throughout shift, [...] MOVING FORWARD: Monitor Tele, control BP, monitor outside laborer sites, D/C Planning INDIVIDUALIZED FALL PREVENTION INTERVENTIONS: [...] From: Transfer from another hospital Location: [facility] Reason for Hospitalization: chest pain Covid Vaccination Status: 1st, 2nd & booster Past medical History: No past medical history on file. Hospitalizations Within the Past 30 Days: no previous admission in last 30 days Current Decision-Making Capacity: Self If AD's have not been completed the following surrogate would be surrogate decision maker per [place] surrogate decision making law. (Only good for 180 days) Any patient receiving care in [place] must abide by [place] law. The hierarchy for surrogate decision making [...] (i) The agent with financial power of banking attorney or a conservator appointed in accordance [...] Arrangements: home/apartment/condo. Accessibility Concerns:1st floor apartment in halfway community; handicapped accessible. In the last 12 [...] has the electric, gas, oil, or water [employer] threatened to shut off services in your [...] toilet seat Home Address confirmed as: [address] [facility] [address] Social & Family Supports: All names listed below confirmed with patient as current and correct Extended Emergency Contact Information Primary Emergency Contact: Iris Downing Address: [address], [place] [id number] [place] [address] Mobile Relation: Child Secondary Emergency Contact: Karen More Address: [address] [place] Relation: Child Current Care Provided by: self Provides Primary Care For: no one Caregiver if needed: child(emmanuel), adult Quality of Family relationships: involved, supportive Community Resources being provided currently: other (see comments) (receives [facility] services at home (1xweekly)) Behavioral Health History: [...] Insurance: N/A Prescription Coverage: Yes Preferred Pharmacy: [facility] [place], [place] - [address] [place] [address] [place] [id number] [place] Status: Patient is a : No Primary Care Provider listed: Masood Pierson MD [phone] Patient/Caregiver Goals of Treatment: home when MR Potential Needs for Transition of Care: home health care Agency Referrals: Not Applicable I have met with the patient to: discuss discharge planning needs. provide the [facility], Office of Care Management letter from the Jail Keeper pertaining to rehab referrals. provide a letter describing our affiliations within the [facility] and educate about their right to choose where referrals are sent. provide a list of Home Health Agencies / Durable Medical Equipment vendors which serve their preferred geographic area. provided patient with CMS Star Quality Rating handout. They have requested referrals to: [facility] [address] [place] [address] Note routed to a Clinical Trial Specialist who will communicate referrals to facilities and provide any required information. Transportation: no concerns Transportation Anticipated: family or friend will provide Concerns to be Addressed: denies needs/concerns at this time Assessment: Patient is admitted to Cardiology S1 service for Unstable Angina Plan: d/c plan pending clinical course, but anticipating d/c home w/ services when MR. Nicholson member of the Care Management team will [...] results. PO hydralazine added for BP control. director of labor and delivery sites remain C/D/I, ecchymosis unchanged th roughout shift. See flowsheet for I+O's and safety rounding. Patient is able to make needs known and call capps within reach. PLAN MOVING FORWARD: Monitor Tele, control CP and BP, NPO at MD for cath, monitor outside laborer sites, D/C Planning INDIVIDUALIZED FALL PREVENTION INTERVENTIONS: [...] 11:20 AM EDT Office Visit Cardiology at [address] [address] Izaiah Meyer MD [facility] [place] [address] Scheduled Referrals Name Type Priority Associated Diagnoses [...] 12:35 AM EDT DIFFERENTIAL, AUTOMATED Routine 11/02/19 24 12:35 AM EDT BLOOD CULTURE STAT 11/02/2023 [...] right coronary artery CARDIAC CATHETERIZATION Routine 11/01/19 24 3:10 PM EDT POCT GLUCOSE Routine 11/01/2023 [...] 3:46 AM EDT) Neutrophil % 63.3 % [facility] Neutrophil Absolute 5.28 1.70 - 6.10 x10(3)/mc L [facility] Lymph % 15.2 % [facility] Lymphocytes Abs 1.3 0.9 - 3.2 x10(3)/mc L [facility] Monocyte % 16.9 % [facility] Monocyte Abs 1.4(H) 0.3 - 0.9 x10(3)/mc L [facility] Eos % 3.7 % [facility] Eosinophils Abs 0.3 0.0 - 0.4 x10(3)/mc L [facility] Basophil % 0.5 % [facility] Baso Absolute 0.0 0.0 - [...] HEMATOLOGY ORDERABLE S [facility] [place] [address] * (ABNORMAL) Hemogram (11/03/2023 3:46 AM EDT) White Blood Cell 8.3 4.0 - 9.5 x10(3)/[facility] Red Blood Cell 3.77(L) 4.00 - 5.21 x10(6)/[facility] Hemoglobin 13.1 11.7 - 15.5 g/dL [facility] Hematocrit 38.0 35.7 - 45.8 % [facility] Mean Cell Volume 100.8(H) 82.6 - 94.4 fL [facility] Mean Cell Hemoglobin 34.7(H) 27.1 - 32.0 pg [facility] Mean Cell Hemoglobin Concentration 34.5 31.7 - 35.0 g/dL [facility] Platelet 181 145 - 357 x10(3)/ L [facility] RDW Standard Deviation 54.7(H) 37.0 - 46.0 [facility] RDW coefficient of variation 14.6(H) 11.5 - 14.1 % [facility] Mean Platelet Volume 11.2 7.6 - 12.9 [facility] NRBC% auto 0.0 % [facility] NRBC Absolute 0.000 0.000 - 0.000 x10(3)/ L [facility] Blood 11/03/2023 3:46 AM EDT 11/03/2023 4:11 AM EDT Narrative Resulting Agency Comment Spec In Lab Qamar Gallardo MD HEMATOLOGY ORDERABLE S Performing Organization Address City/[facility]/ZIP Co de Phone Number [facility] [place] [address] * Phosphorus (11/03/2023 3:46 AM EDT) Phosphorus 3.2 2.5 - 4.5 mg/dL [facility] Comment:result rechecked-KS Blood 11/03/2023 3:46 AM EDT 11/03/2023 4:11 AM EDT Narrative Resulting Agency Comment Spec In Lab Rosa Cornejo MD CHEMISTRY ORDERABLE S Performing Organization Address [facility]/ZIP Co de Phone Number [facility] [place] [address] * Magnesium (11/03/2023 3:46 AM EDT) Magnesium 0.90 0.69 - 1.07 mmol/L [facility] Blood 11/03/2023 3:46 AM EDT 11/03/2023 4:11 AM EDT Narrative Resulting Agency Comment Spec In Lab Rosa Cornejo MD CHEMISTRY ORDERABLE S Performing Organization Address City/[facility]/ZIP Co de Phone Number [facility] [place] [address] * (ABNORMAL) Basic Metabolic Panel (non-fasting) (11/03/2023 [...] CHEMISTRY ORDERABLE S [facility] [place] [address] * EKG 12 Lead (11/02/2023 12:44 PM EDT) Ventricular rate 83 BPM MUSE SYSTEM Atrial Rate 83 BPM MUSE SYSTEM P-R Interval 216 ms MUSE SYSTEM QRS Duration 90 ms MUSE SYSTEM Q-T Interval 384 ms MUSE SYSTEM QTC Calculated (Bezet) 451 ms MUSE SYSTEM Calculated P [place] 92 degrees MUSE SYSTEM Calculated R [place] -51 degrees MUSE SYSTEM Calculated T [place] -33 degrees MUSE SYSTEM INTERPRETATION Sinus rhythm with 1st degree A-V block with Premature atrial complexes Left axis deviation Moderate voltage criteria for LVH, may be normal variant ( R in aVL , [place] product ) Anterolatera l infarct (cited on or before 01-NOV-2023) Abnormal ECG When compared with ECG of 01-NOV-2023 22:10, Premature atrial complexes are now Present TN interval has increased Vent. rate has decreased [...] Cells Raw Data, Urine 10(H) <=4 /HPF [facility] Hyaline Casts, Urine 2 0 - 2 /LPF [facility] Comment: Interpret results with caution, microscopic results are from suboptimal specimen volume Clean Catch Urine 11/02/2023 11:40 AM EDT 11/02/2023 12:05 PM EDT Narrative Resulting Agency Comment Spec In Lab Elmer Tamez MD URINE ORDERABLES [facility] [place] [address] * (ABNORMAL) Urinalysis with reflex Culture (11/02/2023 [...] HOSPITAL LABORATORY Leukocytes, Urine Dipstick Small(A) Negative [facility] LABORATORY Appearance, Urine Dipstick Cloudy(A) Clear [facility] Specific [place] Urine Automated >=1.030(A) 1.005 - 1.030 [facility] Color, Urine Dipstick Dark Yellow Yellow [facility] Reflex to Culture Yes [facility] Clean Catch Urine 11/02/2023 11:40 AM EDT 11/02/2023 12:04 PM EDT Narrative Resulting Agency Comment Spec In Lab Rosa Hugo MD URINE ORDERABLES [facility] [place] [address] * Respiratory Panel PCR (11/02/2023 10:15 AM EDT) Respiratory Panel Source WIRE STRETCHER Swab [facility] Respiratory Panel PCR Negative Negative [facility] Comment: Respiratory Panels are performed on the Re-APP, using multiplexed PCR nucleic acid detection. ??Negative [...] performed using the [employer] Respiratory Panel 2.1 ([facility]) as authorized by the FDA issued Emergency Use Authorization (EUA). This panel also tests for multiple other viral and bacterial pathogens. This assay is intended for In-vitro Diagnostic (IVD) use with nasopharyngeal swabs in viral transport media. The assay is performed based on the instructions for use and additional guidance provided by the FDA. Testing is performed in laboratories within the [facility], each of which is certified under the [...] fact sheets at the following FDA website: https://www.fda.gov/medical-devices/ftxxlxxqlet-davhlhx-5176-xsyct-01-ucxwdbbuf- use-a nfmamqmgbwwxz-dixyosy-idobozf/ujzny-zcvscoczvnj-axeo Human Metapneumovirus Not Detected Not Detected [facility] [...] GEN ERAL ORDERABLES [facility] [place] [address] * XR Chest One View (11/02/2023 2:51 AM EDT) WORKSTATION ID [id number] DH RAD Anatomical Region Laterality Modality Chest [...] who have questions please contact the health respiratory care program director that requested your imaging first. ? Electronically signed by: Omaira Tran MD, [facility] ([phone]), at 11/02/2023 4:56 AM Narrative 11/02/2023 4:56 [...] patients who have questions please contactthe health respiratory care program director that requested your imaging first. Electronically signed by: Omaira Tran MD, [facility]([phone]), at 11/02/2023 4:56 AM Rosa Hugo MD IMG DX ORDERABLES * (ABNORMAL) Differential, Automated (11/02/2023 12:35 AM EDT) Neutrophil % 76.5 % [facility] Neutrophil Absolute 7.69(H) 1.70 - 6.10 x10(3)/mc L [facility] Lymph % 8.3 % [facility] Lymphocytes Abs 0.8(L) 0.9 - 3.2 x10(3)/mc L [facility] Monocyte % 12.9 % [facility] Monocyte Abs 1.3(H) 0.3 - 0.9 x10(3)/mc L [facility] Eos % 1.4 % [facility] Eosinophils Abs 0.1 0.0 - 0.4 x10(3)/mc L [facility] Basophil % 0.4 % [facility] Baso Absolute 0.0 0.0 - [...] Immature Gran Absolute 0.05(H) 0.00 - 0.04 x10(3)/ L [facility] Blood 11/02/2023 12:3 5 AM EDT 11/02/2023 12:43 AM EDT Narrative Resulting Agency Comment Spec In Lab Qamar Gallardo MD HEMATOLOGY ORDERABLE S [facility] [place] [address] * (ABNORMAL) Hemogram (11/02/2023 12:35 AM EDT) [...] Platelet Volume 11.4 7.6 - 12.9 fL [facility] NRBC% auto 0.0 % [facility] NRBC Absolute 0.000 0.000 - 0.000 x10(3)/mc L [facility] Blood 11/02/2023 12:3 5 AM EDT 11/02/2023 12:43 AM EDT Narrative Resulting Agency Comment Spec In Lab Qamar Gallardo MD HEMATOLOGY ORDERABLE S [facility] [place] [address] * (ABNORMAL) Phosphorus (11/02/2023 12:35 AM EDT) Phosphorus 1.6(L) 2.5 - 4.5 mg/dL [facility] Blood 11/02/2023 12:3 5 AM EDT 11/02/2023 12:43 AM EDT Narrative Resulting Agency Comment Spec In Lab Rosa Cornejo MD CHEMISTRY ORDERABLE S Performing Organization Address [facility]/ZIP Co de Phone Number [facility] [place] [address] * Magnesium (11/02/2023 12:35 AM EDT) Magnesium 0.87 0.69 - 1.07 mmol/L [facility] Blood 11/02/2023 12:3 5 AM EDT 11/02/2023 12:43 AM EDT Narrative Resulting Agency Comment Spec In Lab Rosa Cornejo MD CHEMISTRY ORDERABLE S Performing Organization Address City/[facility]/ZIP Co de Phone Number [facility] [place] [address] * Basic Metabolic Panel (non-fasting) (11/02/2023 12:35 [...] CHEMISTRY ORDERABLE S [facility] [place] [address] * Blood culture (11/02/2023 12:35 AM EDT) Blood Culture No growth at 5 days. [facility] Blood 11/02/2023 12:3 5 AM EDT 11/02/2023 1:55 AM EDT Comment:#2 site ukn Narrative Resulting Agency Comment Spec In Lab Rosa Hugo MD MICROBIOLOGY - BLO OD ORDERABLES Performing Organization Address [facility] Co de Phone Number [facility] [place] [address] * Blood culture (11/02/2023 12:15 AM EDT) Blood Culture No growth at 5 days. [facility] Blood 11/02/2023 12:1 5 AM EDT 11/02/2023 1:54 AM EDT Comment:#1site unk Narrative Resulting Agency Comment Spec In Lab Rosa Hugo MD MICROBIOLOGY - BLO OD ORDERABLES Performing Organization Address [facility] Co de Phone Number [facility] [place] [address] * EKG 12 Lead (11/01/2023 10:10 PM EDT) Ventricular rate 139 BPM MUSE SYSTEM Atrial Rate 139 BPM MUSE SYSTEM P-R Interval 168 ms MUSE SYSTEM QRS Duration 84 ms MUSE SYSTEM Q-T Interval 286 ms MUSE SYSTEM QTC Calculated (Bezet) 435 ms MUSE SYSTEM Calculated R Concord -59 degrees MUSE SYSTEM Calculated T [place] -27 degrees MUSE SYSTEM INTERPRETATION Mid-RP tachycardia, consider sinus tachycardia or SVT Left axis deviation Moderate voltage criteria for LVH, may be normal variant ( R in aVL , Ifeanyi product ) Inferior infarct (cited on or before 01-NOV-2023) Anterolateral infarct (cited on or before 01-NOV-2023) Abnormal ECG When compared with ECG of 01-NOV-2023 15:22, Vent. rate Although rate has increased Serial changes of Anterior infarct Present I personally reviewed the tracing and edited the fellows interpretation Confirmed by fellow MD Bowen Ashley ([id number]) on 11/04/2023 7:57:50 AM Confirmed by MD Carrillo Danette ([id number]) on 11/04/2023 4:32:03 PM MUSE SYSTEM 11/01/2023 10:1 0 PM EDT 11/04/2023 4:32 PM EDT Rosa Cornejo MD ECG ORDERABLES MUSE SYSTEM * (ABNORMAL) Hemogram (11/01/2023 10:06 PM EDT) White Blood Cell 10.4(H) 4.0 - 9.5 x10(3)/[facility] LAB[facility] Red Blood Cell 4.11 4.00 - 5.21 x10(6)/[facility] Hemoglobin 14.0 11.7 - 15.5 g/dL [facility] Hematocrit 41.1 35.7 - 45.8 % [facility] Mean Cell Volume 100.0(H) 82.6 - 94.4 fL [facility] Mean Cell Hemoglobin 34.1(H) 27.1 - 32.0 pg [facility] Mean Cell Hemoglobin Concentration 34.1 31.7 - 35.0 g/dL [facility] Platelet 197 145 - 357 x10(3)/ L [facility] RDW Standard Deviation 54.0(H) 37.0 - 46.0 fL [facility] RDW coefficient of variation 14.6(H) 11.5 - 14.1 % [facility] Mean Platelet Volume 11.2 7.6 - 12.9 fL [facility] NRBC% auto 0.0 % [facility] NRBC Absolute 0.000 0.000 - 0.000 x10(3)/ L [facility] Blood 11/01/2023 10:0 6 PM EDT 11/01/2023 10:22 PM EDT Narrative Resulting Agency Comment Spec In Lab Rosa Hugo MD HEMATOLOGY ORDERAB LES Performing Organization Address City/[facility]/ZIP Co de Phone Number [facility] [place] [address] * POCT Glucose (11/01/2023 5:59 PM EDT) [employer] Signature Glucose, POC 104 65 - 199 mg/dL [facility] Comment: Supplemental ranges: <140 mg/dL before meals <180 mg/dL all other times of the day Blood 11/01/2023 5:59 PM EDT 11/01/2023 5:59 PM EDT Rosa Hugo MD POINT OF CARE TEST ORDERABLES Performing Organization Address [facility] Co de Phone Number [facility] [place] [address] * POCT Glucose (11/01/2023 5:35 PM EDT) [facility] Glucose, POC 85 65 - 199 mg/dL [facility] Comment: Supplemental ranges: <140 mg/dL before meals <180 mg/dL all other times of the day Blood 11/01/2023 5:35 PM EDT 11/01/2023 5:35 PM EDT Rosa Hugo MD POINT OF CARE TEST ORDERABLES Performing Organization Address City/[facility] Co de Phone Number [facility] [place] [address] * EKG 12 Lead (11/01/2023 3:22 PM EDT) Ventricular rate 59 BPM MUSE SYSTEM Atrial Rate 59 BPM MUSE SYSTEM P-R Interval 220 ms MUSE SYSTEM QRS Duration 94 ms MUSE SYSTEM Q-T Interval 428 ms MUSE SYSTEM QTC Calculated (Bezet) 423 ms MUSE SYSTEM Calculated P [place] 76 degrees MUSE SYSTEM Calculated R [place] -50 degrees MUSE SYSTEM Calculated T [place] -59 degrees MUSE SYSTEM INTERPRETATION Sinus bradycardia with sinus arrhythmia with 1st degree A-V block Left anterior fascicular block Moderate voltage criteria for LVH, may be normal variant ( R in aVL , [place] product ) Cannot rule out Inferior infarct [...] Modality Other Narrative 11/02/2023 4:57 PM EDT ?[facility] ? Cardiac Catheterization/Intervention Report ? Patient Name: Adin Santos ? Procedure Date: 11/01/2023 ? A #: [id number] ? Primary Physician: Rosa Dewey I ? Case #: [id number] ? File Name: [id number] ? Catheterization Order Number: [id number] ? [facility] ? Final Report [place], [place] ? Patient Name: ? Adin M. Goguen ?ID#: ?[id number] ? : ?1940 ? Procedure Date: ? [...] procedure was Urgent. The indication for ?the outside laborer visit is ACS greater than 24 hrs. [...] ??A premounted ? 3.50 x 15 mm Kenner Culebra (RADHA) was deployed with a maximum ? [...] ? A premounted 3.50 x 15 mm Kenner Culebra (RADHA) was deployed ? with a maximum [...] dose administered prior to arrival in the outside laborer. ?Recommended anti-platelet/anti-thrombotic regimen: ?Continue aspirin 81 mg daily for indefinitely. ?Continue clopidogrel 75 mg daily for 12 months then stop. ?These recommendations are made at the time of the intervention. Patient ?and provider preferences or a changing clinical situation may require ?modification of this regimen. Consult [facility] Interventional Cardiology for ?questions. [...] ?insertion-coronary and IVUS # coronary. ? Rosa Cornejo Chaudry, M.D. ? Electronically Signed by: Rosa Cornejo Otto, M.D. ? Report Finalized: 11/02/2023 ??16:51 ? Report Last Ammended: 12/12/2023 ??10:28 ? Procedure Note Rosa Dewey MD - 12/12/2023 [facility] Cardiac Catheterization/Intervention Report Patient Name: Adin Santos Procedure Date: 11/01/2023 A #: [id number] Primary Physician: Rosa Dewey I Case #: [id number] File Name: [id number] Catheterization Order Number: [id number] [facility] FinalReport [place], [place] Patient Name: Adin Santos ID#:[id number] :1940 Procedure Date: November 01, 2023 Case [...] was designated as ASA Class III. [facility]: Vulnerable. Diagnostic Tests: Prior Coronary Angiography: LV ejection fraction within 6 months is 65%. Electrocardiography: EKG was assessed by ECG. EKG was Abnormal. EKG showed other abnormality. Medications Prior to Procedure: Aspirin, Angiotensin II Receptor Rodrick and Statin. Indications for Diagnostic Cath: The priority of the diagnostic procedure was Urgent. The indicationfor the outside laborer visit is ACS greater than 24 hrs. [...] 14 atmospheres. Apremounted 3.50 x 15 mm Kenner Culebra (RADHA) was deployed with amaximum inflation pressure [...] The lesion was predilated with a 3.00mm [id number] MM balloon with a maximum inflation pressure of 14atmospheres. A premounted 3.50 x 15 mm Kenner Culebra (RADHA) wasdeployed with a maximum inflation pressure [...] dose administered prior to arrival in the outside laborer. Recommended anti-platelet/anti-thrombotic regimen: Continue aspirin 81 mg daily for indefinitely. Continue clopidogrel 75 mg daily for 12 months then stop. These recommendations are made at the time of the intervention.Patient and provider preferences or a changing clinical situation mayrequire modification of this regimen. Consult [facility] Interventional Cardiologyfor questions. The [...] * POCT Glucose (11/01/2023 7:06 AM EDT) [facility] Glucose, POC 93 65 - 199 mg/dL [facility] Comment: Supplemental ranges: <140 mg/dL before meals <180 mg/dL all other times of the day Blood 11/01/2023 7:06 AM EDT 11/01/2023 7:06 AM EDT Jean Laboy MD POINT OF CARE TEST O RDERABLES [facility] [place] [address] * (ABNORMAL) Differential, Automated (11/01/2023 3:09 AM EDT) Pathologist [facility] Neutrophil % 63.9 % [facility] Neutrophil Absolute 5.54 1.70 - 6.10 x10(3)/mc L [facility] Lymph % 20.0 % [facility] Lymphocytes Abs 1.7 0.9 - 3.2 x10(3)/mc L [facility] Monocyte % 11.9 % [facility] Monocyte Abs 1.0(H) 0.3 - 0.9 x10(3)/mc L [facility] Eos % 3.2 % [facility] Eosinophils Abs 0.3 0.0 - 0.4 x10(3)/ L [facility] Basophil % 0.5 % [facility] Baso Absolute 0.0 0.0 - [...] MD HEMATOLOGY ORDERABLE S Performing Organization Address City/State/[facility] Co de Phone Number [facility] [place] [address] * (ABNORMAL) Hemogram (11/01/2023 3:09 AM EDT) [...] HOSPITAL LABORATORY Platelet 184 145 - 357 x10(3)/mc L [facility] RDW Standard Deviation 53.5(H) 37.0 - 46.0 fL [facility] RDW coefficient of variation 14.6(H) 11.5 - 14.1 % [facility] Mean Platelet Volume 11.3 7.6 - 12.9 fL [facility] NRBC% auto 0.0 % [facility] NRBC Absolute 0.000 0.000 - 0.000 x10(3)/mc L [facility] Blood 11/01/2023 3:09 AM EDT 11/01/2023 3:29 AM EDT Narrative Resulting Agency Comment Spec In Lab Qamar Gallardo MD HEMATOLOGY ORDERABLE S Performing Organization Address City/[facility]/ZIP Co de Phone Number [facility] [place] [address] * Phosphorus (11/01/2023 3:09 AM EDT) Phosphorus 2.5 2.5 - 4.5 mg/dL [facility] Blood 11/01/2023 3:09 AM EDT 11/01/2023 3:29 AM EDT Narrative Resulting Agency Comment Spec In Lab Rosa Cornejo MD CHEMISTRY ORDERABLE S Performing Organization Address City/[facility]/ZIP Co de Phone Number [facility] [place] [address] * Magnesium (11/01/2023 3:09 AM EDT) Magnesium 0.82 0.69 - 1.07 mmol/L [facility] Blood 11/01/2023 3:09 AM EDT 11/01/2023 3:29 AM EDT Narrative Resulting Agency Comment Spec In Lab Rosa Cornejo MD CHEMISTRY ORDERABLE S [facility] [place] [address] * (ABNORMAL) Basic Metabolic Panel (non-fasting) (11/01/2023 [...] CHEMISTRY ORDERABLE S [facility] [place] [address] * (ABNORMAL) Troponin (10/31/2023 2:46 PM EDT) [...] troponin value can be found in the [facility] Test Catalog Troponin - [facility] Test Catalog Reference: [place] Definition of Myocardial Infarction. Journal of the [place] [employer] 2018;72:2939-8630 Blood 10/31/2023 2:46 PM EDT 10/31/2023 2:55 PM EDT Narrative Resulting Agency Comment Spec In Lab Jean Laboy MD CHEMISTRY ORDERABLES Performing Organization Address [facility] Co de Phone Number [facility] [place] [address] * EKG 12 Lead (10/31/2023 1:07 PM EDT) Ventricular rate 54 BPM MUSE SYSTEM Atrial Rate 54 BPM MUSE SYSTEM P-R Interval 218 ms MUSE SYSTEM QRS Duration 92 ms MUSE SYSTEM Q-T Interval 540 ms MUSE SYSTEM QTC Calculated (Bezet) 512 ms MUSE SYSTEM Calculated P Concord 85 degrees MUSE SYSTEM Calculated R [place] -44 degrees MUSE SYSTEM Calculated T [place] -69 degrees MUSE SYSTEM INTERPRETATION Sinus bradycardia [...] Cornejo MD ECG ORDERABLES Performing Organization Address [facility] Co de Phone Number MUSE SYSTEM * (ABNORMAL) Troponin (10/31/2023 11:37 AM EDT) Pathologist [facility] Troponin-T, High Sensitivity 580(H) <=14 ng/L [place] [...] troponin value can be found in the [facility] Test Catalog Troponin - [facility] Test Catalog Reference: [place] Definition of Myocardial Infarction. Journal of the [place] [employer] 2018;72:9094-6840 Blood 10/31/2023 11:3 7 AM EDT 10/31/2023 11:50 AM EDT Narrative Resulting Agency Comment Spec In Lab Rosa Cornejo MD CHEMISTRY ORDERABLE S [facility] [place] [address] * ECHO COMPLETE (10/31/2023 8:52 AM EDT) Anatomical Region Laterality Modality Cardiac Other 10/31/2023 7:57 AM EDT Narrative 10/31/2023 9:45 AM EDT [address] [place] [address] ? Echocardiogram Report Name: ADIN SANTOS ? Study Date: 10/31/2023 07:57 AMBP: 106/76 mmHg ? Patient Location: [facility] A : 1940 ? Height: 163 cm ? Account: [id number] Age: 83 yrs ? Weight: 76 kg Gender: Female ?BSA: 1.8 m2 Ordering Physician: ROSA DEWEY Referring Physician: OMAIRA GIRNO Performed By: HAFSA Carmichael Reason For Study: STEMI Interpreting Fellow: Raymond Warren. Exam Location: [facility]. Interpretation Summary -The left ventricle is [...] is no prior echocardiogram for comparison. Procedure Complete-84868. Satisfactory quality. There is sinus bradycardia. Left [...] Note Edgard Wang MD - 10/31/2023 [address] [place] [id number] Echocardiogram Report Name: TREY SANTOSMarco A Catherine Study Date: 407:57 AMBP: 106/76 mmHg Patient Location: [address] : 1940 Height: 163 cm Account: [id number] Age: 83 yrs Weight: 76 kg Gender: Female BSA: 1.8 m2 Ordering Physician: ROSA DEWEY Referring Physician: OMAIRA GIRON Performed By: HAFSA Carmichael Reason For Study: STEMI Interpreting Fellow: Raymond Warren. Exam Location: [facility]. Interpretation Summary -The left ventricle is [...] is no prior echocardiogram for comparison. Procedure Complete-19229. Satisfactory quality. There is sinus bradycardia. Left [...] troponin value can be found in the [facility] Test Catalog Troponin - [facility] Test Catalog Reference: [place] Definition of Myocardial Infarction. Journal of the [place] [employer] 2018;72:8258-9328 Blood 10/31/2023 8:51 AM EDT 10/31/2023 9:12 AM EDT Narrative Resulting Agency Comment Spec In Lab Rosa Cornejo MD CHEMISTRY ORDERABLE S Performing Organization Address City/State/[facility] Co de Phone Number [facility] [place] [address] * CARDIAC CATHETERIZATION (10/31/2023 8:10 AM EDT) Anatomical Region Laterality Modality Other Narrative 11/07/2023 9:42 AM EDT ?[facility] ? Cardiac Catheterization/Intervention Report ? Patient Name: Adin Santos M. ? Procedure Date: 10/30/2023 ? A #: [id number] ? Primary Physician: Rosa Dewey I ? Case #: [id number] ? File Name: [id number] ? Catheterization Order Number: [id number] ? [facility] ? Final Report [place], [place] ? Patient Name: ? Adin M. Goguen ?ID#: ?[id number] ? : ?1940 ? Procedure Date: ? October 30, 2023 ? Case #: ? [id number] ? Room: ? 5 ? Case Physician: [...] procedure was Emergent. The indication for ?the outside laborer visit is ACS less than or equal [...] ? A premounted 4.00 x 38 mm Kenner Culebra (RADHA) was deployed ? with a maximum [...] dose administered prior to arrival in the outside laborer. ?Recommended anti-platelet/anti-thrombotic regimen: ?Continue aspirin 81 mg daily for 12 months then stop. ?Continue clopidogrel 75 mg daily for indefinitely. ?These recommendations are made at the time of the intervention. Patient ?and provider preferences or a changing clinical situation may require ?modification of this regimen. Consult [facility] Interventional Cardiology for ?questions. ? Conclusions: ?* [...] Procedure Note Rosa Dewey MD - 12/05/2023 [facility] Cardiac Catheterization/Intervention Report Patient Name: Adin Santos Procedure Date: 10/30/2023 A #: [id number] Primary Physician: Rosa Dewey I Case #: [id number] File Name: [id number] Catheterization Order Number: [id number] [facility] FinalReport [place], [place] Patient Name: Adin Santos ID#:[id number] :1940 Procedure Date: October 30, 2023 Case [...] was designated as ASA Class III. The [facility] clinical frailtyscale is 5: Mildly Frail. Diagnostic Tests: Electrocardiography: EKG was assessed by ECG. EKG was Abnormal. EKG showed STDeviation >= 0.5 mm, other abnormality and dynamic EKG changes. Medications Prior to Procedure: Aspirin, Angiotensin II Receptor Rodrick, Beta Rodrick andStatin. Indications for Diagnostic Cath: The priority of the diagnostic procedure was Emergent. Theindication for the outside laborer visit is ACS less than or equal [...] The priority for the procedure was Emergent.The NCDR indication for the procedure was STEMI-Immediate PCI [...] 16atmospheres. A premounted 4.00 x 38 mm Andrea Culebra (RADHA) wasdeployed with a maximum inflation pressure [...] dose administered prior to arrival in the outside laborer. Recommended anti-platelet/anti-thrombotic regimen: Continue aspirin 81 mg daily for 12 months then stop. Continue clopidogrel 75 mg daily for indefinitely. These recommendations are made at the time of the intervention.Patient and provider preferences or a changing clinical situation mayrequire modification of this regimen. Consult [facility] Interventional Cardiologyfor questions. Conclusions: * Two vessel [...] * (ABNORMAL) Troponin (10/31/2023 4:21 AM EDT) [facility] Troponin-T, High Sensitivity 457(H) <=14 ng/L [facility] [...] troponin value can be found in the [facility] Test Catalog Troponin - [facility] Test Catalog Reference: [place] Definition of Myocardial Infarction. Journal of the [place] [employer] 2018;72:9137-6689 Blood 10/31/2023 4:21 AM EDT 10/31/2023 4:30 AM EDT Narrative Resulting Agency Comment Spec In Lab Rosa Cornejo MD CHEMISTRY ORDERABLE S Performing Organization Address City/State/[facility] Co de Phone Number [facility] [place] [address] * (ABNORMAL) Differential, Automated (10/31/2023 3:05 AM EDT) Neutrophil % 71.7 % [facility] Neutrophil Absolute 8.21(H) 1.70 - 6.10 x10(3)/mc L [facility] Lymph % 16.9 % [facility] Lymphocytes Abs 1.9 0.9 - 3.2 x10(3)/mc L [facility] Monocyte % 9.4 % [facility] Monocyte Abs 1.1(H) 0.3 - 0.9 x10(3)/mc L [facility] Eos % 1.3 % [facility] Eosinophils Abs 0.2 0.0 - 0.4 x10(3)/mc L [facility] Basophil % 0.4 % [facility] Baso Absolute 0.0 0.0 - [...] MD HEMATOLOGY ORDERABLE S Performing Organization Address City/State/[facility] Co de Phone Number [facility] [place] [address] * (ABNORMAL) Hemogram (10/31/2023 3:05 AM EDT) White Blood Cell 11.5(H) 4.0 - 9.5 x10(3)/ L [facility] Red Blood Cell 3.75(L) 4.00 - 5.21 x10(6)/ L [facility] Hemoglobin 12.6 11.7 - 15.5 g/dL [...] Standard Deviation 53.4(H) 37.0 - 46.0 fL [facility] RDW coefficient of variation 14.6(H) 11.5 - 14.1 % [facility] Mean Platelet Volume 11.1 7.6 - 12.9 fL [facility] NRBC% auto 0.0 % [facility] NRBC Absolute 0.000 0.000 - 0.000 x10(3)/mc L [facility] Blood 10/31/2023 3:05 AM EDT 10/31/2023 3:13 AM EDT Narrative Resulting Agency Comment Spec In Lab Qamar Gallardo MD HEMATOLOGY ORDERABLE S Performing Organization Address [facility] Co de Phone Number [facility] [place] [address] * (ABNORMAL) APTT (10/31/2023 3:05 AM EDT) [...] MD HEMATOLOGY ORDERABL ES Performing Organization Address [facility] Co de Phone Number [facility] [place] [address] * (ABNORMAL) Prothrombin Time (10/31/2023 3:05 AM [...] Lab Rosa Cornejo MD HEMATOLOGY ORDERABL ES [facility] [place] [address] * (ABNORMAL) Differential, Automated (10/31/2023 1:37 AM EDT) Neutrophil % 71.1 % [facility] Neutrophil Absolute 7.53(H) 1.70 - 6.10 x10(3)/mc L [facility] Lymph % 18.0 % [facility] Lymphocytes Abs 1.9 0.9 - 3.2 x10(3)/mc L [facility] Monocyte % 8.7 % [facility] Monocyte Abs 0.9 0.3 - 0.9 x10(3)/mc L [facility] Eos % 1.6 % [facility] Eosinophils Abs 0.2 0.0 - 0.4 x10(3)/mc L [facility] Basophil % 0.4 % [facility] Baso Absolute 0.0 0.0 - [...] HEMATOLOGY ORDERABLE S [facility] [place] [address] * (ABNORMAL) Hemogram (10/31/2023 1:37 AM EDT) [...] HOSPITAL LABORATORY Platelet 204 145 - 357 x10(3)/mc L [facility] RDW Standard Deviation 54.3(H) 37.0 - 46.0 fL [facility] RDW coefficient of variation 14.6(H) 11.5 - 14.1 % [facility] Mean Platelet Volume 11.1 7.6 - 12.9 fL [facility] NRBC% auto 0.0 % [facility] NRBC Absolute 0.000 0.000 - 0.000 x10(3)/mc L [facility] Blood 10/31/2023 1:37 AM EDT 10/31/2023 1:46 AM EDT Narrative Resulting Agency Comment Spec In Lab Qamar Gallardo MD HEMATOLOGY ORDERABLE S [facility] [place] [address] * Phosphorus (10/31/2023 1:37 AM EDT) [facility] Phosphorus 3.2 2.5 - 4.5 mg/dL [facility] Blood 10/31/2023 1:37 AM EDT 10/31/2023 1:46 AM EDT Narrative Resulting Agency Comment Spec In Lab Rosa Cornejo MD CHEMISTRY ORDERABLE S Performing Organization Address City/[facility]/ZIP Co de Phone Number [facility] [place] [address] * Magnesium (10/31/2023 1:37 AM EDT) [facility] Magnesium 0.83 0.69 - 1.07 mmol/L [facility] Blood 10/31/2023 1:37 AM EDT 10/31/2023 1:46 AM EDT Narrative Resulting Agency Comment Spec In Lab Rosa Cornejo MD CHEMISTRY ORDERABLE S Performing Organization Address City/[facility]/ZIP Co de Phone Number [facility] [place] [address] * Basic Metabolic Panel (non-fasting) (10/31/2023 1:37 AM EDT) [facility] Glucose 114 65 - 199 mg/dL [facility] [...] CHEMISTRY ORDERABLE S [facility] [place] [address] * (ABNORMAL) Troponin (10/31/2023 1:37 AM EDT) [...] troponin value can be found in the [facility] Test Catalog Troponin - [facility] Test Catalog Reference: Fourth [place] Definition of Myocardial Infarction. Journal of the [place] [employer] 2018;72:1208-4904 Blood 10/31/2023 1:37 AM EDT 10/31/2023 1:46 AM EDT Narrative Resulting Agency Comment Spec In Lab Rosa Cornejo MD CHEMISTRY ORDERABLE S Performing Organization Address City/State/[facility] [place] [address] * EKG 12 Lead (10/31/2023 1:20 AM EDT) Ventricular rate 52 BPM MUSE SYSTEM Atrial Rate 52 BPM MUSE SYSTEM P-R Interval 224 ms MUSE SYSTEM QRS Duration 108 ms MUSE SYSTEM Q-T Interval 544 ms MUSE SYSTEM QTC Calculated (Bezet) 505 ms MUSE SYSTEM Calculated P [place] 90 degrees MUSE SYSTEM Calculated R [place] -57 degrees MUSE SYSTEM Calculated T [place] -63 degrees MUSE SYSTEM INTERPRETATION Sinus bradycardia [...] Cornejo MD ECG ORDERABLES Performing Organization Address [facility] de Phone Number MUSE SYSTEM * EKG 12 Lead (10/30/2023 10:40 PM EDT) Ventricular rate 55 BPM MUSE SYSTEM Atrial Rate 55 BPM MUSE SYSTEM P-R Interval 232 ms MUSE SYSTEM QRS Duration 102 ms MUSE SYSTEM Q-T Interval 520 ms MUSE SYSTEM QTC Calculated (Bezet) 497 ms MUSE SYSTEM Calculated P [place] 75 degrees MUSE SYSTEM Calculated R [place] -53 degrees MUSE SYSTEM Calculated T [place] -57 degrees MUSE SYSTEM INTERPRETATION Sinus bradycardia [...] block is no longer Present Confirmed by Charles COFFMAN, Butch ([id number]) on 11/01/2023 8:58:01 PM MUSE SYSTEM 10/30/2023 10:4 0 PM EDT 11/01/2023 8:58 PM EDT Rosa Cornejo MD ECG ORDERABLES Performing Organization Address [facility] Phone Number MUSE SYSTEM * XR Chest One View (10/30/2023 10:10 PM EDT) WORKSTATION ID [id number] RAD Anatomical Region Laterality Modality Chest N/A Digital Radiogra phy Impressions 10/30/2023 10:32 PM EDT 1. ??Examination limited by low lung volumes. 2. ??Findings suggesting pulmonary vascular congestion with possible mild interstitial edema. 3. ??Known ascending aortic aneurysm, as seen on recent CT. 4. ??Nonspecific widening mediastinum. This can be secondary to magnification from portable technique and low lung volumes. Findings similar to locomotive firer/fireman radiograph from CT 10/30/2023. Thank you for letting us participate in the care of this patient. ??If you are a health care provider and have any questions regarding this report, please contact the number below. ??For patients who have questions please contact the health respiratory care program director that requested your imaging first. ? Electronically signed by: Wilson Mccartney MD, [facility] ([phone]), at 10/30/2023 10:32 PM Narrative 10/30/2023 10:32 [...] and low lung volumes. Findings similar to locomotive firer/fireman radiograph from CT 10/30/2023. Thank you for letting us participate in the care of this patient. If youare a health care provider and have any questions regarding this report,please contact the number below. For patients who have questions please contactthe health respiratory care program director that requested your imaging first. Rosa Cornejo MD IMG DX ORDERABLES * Green Tube HOLD (10/30/2023 10:05 PM EDT) [facility] Green Hold Sample in lab. [facility] Blood Venous Draw / Unknown 10/30/2023 10:05 PM EDT 10/30/2023 10:13 PM EDT Qamar Gallardo MD CHEMISTRY ORDERABLES [facility] [place] [address] * (ABNORMAL) Differential, Automated (10/30/2023 10:05 PM EDT) [facility] Neutrophil % 76.6 % [facility] Neutrophil Absolute 6.94(H) 1.70 - 6.10 x10(3)/mc L [facility] Lymph % 15.4 % [facility] Lymphocytes Abs 1.4 0.9 - 3.2 x10(3)/mc L [facility] Monocyte % 6.1 % [facility] Monocyte Abs 0.6 0.3 - 0.9 x10(3)/mc L [facility] Eos % 1.1 % [facility] Eosinophils Abs 0.1 0.0 - 0.4 x10(3)/ L [facility] Basophil % 0.6 % [facility] Baso Absolute 0.0 0.0 - [...] x10(3)/ L [facility] Blood 10/30/2023 10:0 5 PM EDT 10/30/2023 10:12 PM EDT Narrative Resulting Agency Comment Spec In Lab Qamar Gallardo MD HEMATOLOGY ORDERABLE S [facility] [place] [address] * (ABNORMAL) Hemogram (10/30/2023 10:05 PM EDT) White Blood Cell 9.0 4.0 - 9.5 x10(3)/ L [facility] Platelet 211 145 - 357 x10(3)/ L [facility] RDW Standard Deviation 53.6(H) 37.0 - 46.0 fL [facility] RDW coefficient of variation 14.6(H) 11.5 - 14.1 % [facility] Mean Platelet Volume 11.1 7.6 - 12.9 fL [facility] NRBC% auto 0.0 % [facility] NRBC Absolute 0.000 0.000 - 0.000 x10(3)/mc L [facility] Blood 10/30/2023 10:0 5 PM EDT 10/30/2023 10:12 PM EDT Narrative Resulting Agency Comment Spec In Lab Qamar Gallardo MD HEMATOLOGY ORDERABLE S Performing Organization Address City/[facility]/ZIP Co de Phone Number [facility] [place] [address] * Hemoglobin A1c (10/30/2023 10:05 PM EDT) [...] Mellitus, Diabetes Care 2013; 36: Suppl. 1, O85-02 Estimated Average Glucose See note mg/dL [facility] Comment: Estimated Average Glucose not appropriate for patients over 70 years of age. Blood 10/30/2023 10:0 5 PM EDT 10/30/2023 10:12 PM EDT Narrative Resulting Agency Comment Spec In Lab Rosa Cornejo MD CHEMISTRY ORDERABLE S Performing Organization Address City/[facility]/ZIP Co de Phone Number [facility] [place] [address] * Lipid Panel (Reflex Direct LDL) (10/30/2023 10:05 PM EDT) Cholesterol, Total 218 mg/dL [facility] Comment: Desirable: ? <200 mg/dL Borderline High: 200-239 mg/dL Higher: ?>zq=110 mg/dL Triglyceride 46 mg/dL [facility] Comment: Normal: ?<150 mg/dL Borderline High: 150-199 mg/dL High: ?200-499 mg/dL Very High: ? >ga=786 mg/dL HDL Cholesterol 64 mg/dL [facility] Comment: Females: High Risk: <50 mg/dL Males: High Risk: <40 mg/dL LDL Cholesterol 145 mg/dL [facility] Comment: Desirable: ? <100 mg/dL Above Desirable: 100-129 mg/dL Borderline High: 130-159 mg/dL High: ?160-189 mg/dL Very High: ? >ep=781 mg/dL Lipid Interpretation See Note [facility] [...] ACC/AHA Guidelines (most recently Feliciano et al. [facility] 03/23/22): For individuals with atherosclerotic cardiovascular disease (ASCVD)or LDL >wm=297 mg/dL, use a high-intensity statin (40-80 mg [...] CHEMISTRY ORDERABLE S [facility] [place] [address] * TSH [place] (10/30/2023 10:05 PM EDT) Thyroid Stimulating Hormone 3.35 0.27 - 4.20 mcIU/mL [facility] Comment: Reference Interval (mcIU/mL): Females: ??First Trimester: 0.23-3.88 ??Second Trimester: 0.22-3.90 ??Third Trimester: 0.44-4.66 Blood 10/30/2023 10:0 5 PM EDT 10/30/2023 10:12 PM EDT Narrative Resulting Agency Comment Spec In Lab Rosa Cornejo MD CHEMISTRY ORDERABLE S [facility] [place] [address] * pro-Brain Natriuretic Peptide (10/30/2023 10:05 PM EDT) NT-proBNP 375 <=449 pg/mL [facility] Blood 10/30/2023 10:0 5 PM EDT 10/30/2023 10:12 PM EDT Narrative Resulting Agency Comment Spec In Lab Rosa Cornejo MD CHEMISTRY ORDERABLE S Performing Organization Address [facility]/ZIP Co de Phone Number [facility] [place] [address] * (ABNORMAL) Comprehensive metabolic panel (non-fasting) (10/30/2023 10:05 PM EDT) Pathologist [facility] Glucose 121 65 - 199 mg/dL [facility] [...] MD CHEMISTRY ORDERABLE S Performing Organization Address City/[facility]/ZIP Co de Phone Number [facility] [place] [address] * Phosphorus (10/30/2023 10:05 PM EDT) Phosphorus 3.3 2.5 - 4.5 mg/dL [facility] Blood 10/30/2023 10:0 5 PM EDT 10/30/2023 10:12 PM EDT Narrative Resulting Agency Comment Spec In Lab Rosa Cornejo MD CHEMISTRY ORDERABLE S Performing Organization Address City/[facility]/ZIP Co de Phone Number [facility] [place] [address] * Magnesium (10/30/2023 10:05 PM EDT) Magnesium 0.86 0.69 - 1.07 mmol/L [facility] Blood 10/30/2023 10:0 5 PM EDT 10/30/2023 10:12 PM EDT Narrative Resulting Agency Comment Spec In Lab Rosa Cornejo MD CHEMISTRY ORDERABLE S [facility] [place] [address] * (ABNORMAL) Troponin (10/30/2023 10:05 PM EDT) Troponin-T, High Sensitivity 214(H) <=14 ng/L [facility] [...] troponin value can be found in the [facility] Test Catalog Troponin - [facility] Test Catalog Reference: Fourth [place] Definition of Myocardial Infarction. Journal of the [place] [employer] 2018;72:1190-9753 Blood 10/30/2023 10:0 5 PM EDT 10/30/2023 10:12 PM EDT Narrative Resulting Agency Comment Spec In Lab Rosa Cornejo MD CHEMISTRY ORDERABLE S [facility] [place] [address] * EKG 12 Lead (10/30/2023 8:21 PM EDT) Ventricular rate 49 BPM MUSE SYSTEM Atrial Rate 49 BPM MUSE SYSTEM P-R Interval 230 ms MUSE SYSTEM QRS Duration 96 ms MUSE SYSTEM Q-T Interval 526 ms MUSE SYSTEM QTC Calculated (Bezet) 475 ms MUSE SYSTEM Calculated P [place] 98 degrees MUSE SYSTEM Calculated R [place] -48 degrees MUSE SYSTEM Calculated T [place] -51 degrees MUSE SYSTEM INTERPRETATION Sinus bradycardia with 1st degree A-V block Incomplete right bundle branch block Left anterior fascicular block Moderate voltage criteria for LVH, may be normal variant ( R in aVL , [place] product ) T wave abnormality, consider inferior ischemia T wave abnormality, consider anterolateral ischemia Prolonged QT Abnormal ECG When compared with ECG of 01-SEP-2007 11:02, Incomplete right bundle branch block is now Present Confirmed by MD NEFTALI, CHIDI ([id number]) on 10/31/2023 10:45:41 AM MUSE SYSTEM 10/30/2023 8:21 PM EDT 10/31/2023 10:45 AM EDT Rosa Cornejo MD ECG ORDERABLES Performing Organization Address City/[facility] Co de Phone Number MUSE SYSTEM documented in this encounter Visit [...] Oral, 2 TIMES DAILY, First dose on Tue11/03/23 at 1030, Until Discontinued, Routine, Indication for [...] (50 mcg/mL) multi-dose injection PRN, Starting on Tue10/30/23 at 1746, Until Tue10/30/23 at 2208, Intra-Operative (Intra-Procedure), Routine Given 10/30/2023 8:04 PM EDT 25 mcg Given 10/30/2023 7:39 PM EDT 25 mcg Given 10/30/2023 6:37 PM EDT 25 mcg heparin (porcine) (1,000 units/mL) injection PRN, Starting on Tue10/30/23 at 1730, Until Tue10/30/23 at 2208, Intra-Operative (Intra-Procedure), Routine Given 10/30/2023 7:23 PM EDT 3,000 Units Given 10/30/2023 6:49 PM EDT 2,000 Units Given 10/30/2023 6:33 PM EDT 2,000 Units heparin (porcine) (5,000 units/1 mL) subcutaneous [...] (Omnipaque) (350 mg/mL) solution PRN, Starting on Tue10/30/23 at 2005, Until Tue10/30/23 at 2208, Intra-Operative (Intra-Procedure), Routine Given 10/30/2023 8:05 PM EDT 210 mLs lidocaine (Lidoderm) 5% patch 1 patch [...] 11/02/2023 9:37 AM EDT 50 mg metoprolol (LOPRESSOR) injection PRN, Starting on Tue10/30/23 at 1804, Until Tue10/30/23 at 2208, Intra-Operative (Intra-Procedure) Given 10/30/2023 6:04 PM EDT 5 mg metoprolol succinate XL (Toprol-XL) tablet 12.5 mg 12.5 mg, Oral, DAILY, First dose (after last modification) on Tue11/03/23 at 1015, Until Discontinued, DO NOT CRUSH OR OPEN, Routine Given 11/03/2023 10:20 AM EDT 12.5 mg midazolam (pf) (Versed) (1 mg/mL) multi-dose injection PRN, Starting on Tue10/30/23 at 1745, Until Tue10/30/23 at 2208, Intra-Operative (Intra-Procedure), Routine Given 10/30/2023 7:39 PM EDT 0.5 mg Given 10/30/2023 5:45 PM EDT 0.5 mg nitroGLYcerin 100 mcg/mL intracoronary dilution PRN, Starting on 10/30/23 at 1728, Until 10/30/23 at 2208, Intra-Operative (Intra-Procedure), Routine Given 10/30/2023 5:28 PM EDT 150 mcg sodium chloride 0.9 % (flush) (BD PosiFlush Normal Saline 0.9) flush 5 mL 5 mL, Intravenous, 2 TIMES DAILY, First dose on Tue10/30/23 at 2300, Until Discontinued, Routine Given 11/03/2023 8:20 AM EDT 5 mLs Given 11/02/2023 8:13 PM EDT 5 mLs Given 11/02/2023 9:00 AM EDT 5 mLs sodium chloride 0.9% infusion CONTINUOUS PRN, Starting on Tue10/30/23 at 2017, Until Tue10/30/23 at 2208, Intra-Operative (Intra-Procedure) New Bag 10/30/2023 8:17 PM EDT 700 mLs spironolactone (Aldactone) tablet 25 mg 25 mg, Oral, DAILY, First dose (after last modification) on Tue11/02/23 at 1000, Until Discontinued, DO NOT SPLIT, CRUSH OR OPEN, Routine Given 11/03/2023 8:17 AM EDT 25 mg Given 11/02/2023 9:37 AM EDT 25 mg verapamiL (Isoptin) (2.5 mg/mL) injection PRN, Starting on 10/30/23 at 1728, Until Tue10/30/23 at 2208, Administer over 2 Minutes, Intra-Operative (Intra-Procedure) Given 10/30/2023 5:28 PM EDT 2 .5 mg documented in this encounter Active and [...] Unit), Routine 0937 (Given - Provider: Mary Sweeney, TANESHA) 0816 (Given - Provider: Lucretia Thurman, TANESHA) atorvastatin (Lipitor) tablet 80 mg 80 mg, Oral, EVERY EVENING, First dose on Tue10/30/23 at 2245, Until Discontinued, Routine 1333 (AUG Hold - Provider: Admin Adt - Reason: Transfer to a Procedural area)1548 (MAR Unhold - Provider: Admin Adt)1848 (Given - Provider: Mary Sweeney, TANESHA)2019 (Given - Provider: Danica Shipley RN) 1730 (Given - Provider: Mary Sweeney, TANESHA) 1621 (Given - Provider: Moshe Pope RN) [...] 0939 (Given - Provider: Mary Sweeney, TANESHA) clopidogreL (Plavix) tablet 75 mg 75 mg, [...] Leblanc, TANESHA)1350 (New Bag - Provider: Lolly Leblanc RN)1659 (Stopped - Provider: Mary Sweeney RN)1700 (New Bag - Provider: Mary Sweeney RN)2100 [...] Procedural area)1548 (AUG Unhold - Provider: Admin Adt)2019 (Given - Provider: Danica Shipley RN) 0900 (Given - Provider: Mary Sweeney, TANESHA)2012 (Given - Provider: Danica Shipley RN) 0820 (Given - Provider: Lucretia Thurman RN) spironolactone (Aldactone) tablet 12.5 mg (CANCELED) 12.5 [...] 1144 (Given - Provider: Mary Sweeney RN)1333 (MAR [...] Sublingual, EVERY 5 MIN PRN, Starting on Tue10/30/23 at 2208, Until Amna 11/03/23 at 1913, Chest pain, May repeat every 5 minutes for a total of three doses. Notify provider if chest pain not relieved with nitroglycerin. Do not administer nitroglycerin if the patient has received or taken phosphodiesterase (PDE-5) inhibitors such as sildenafil, tadalafil or vardenafil within the last 24 to 72 hours., Routine 1333 (AUG Hold - Provider: Admin Adt - Reason: Transfer to a Procedural area)1548 (AUG Unhold - Provider: Admin Adt) sodium chloride 0.9 % (flush) (BD PosiFlush Normal Saline 0.9) flush 5-20 mL 5-20 mL, Intravenous, EVERY 1 MIN PRN, Starting on 10/30/23 at 2208, Until Amna 11/03/23 at 1913, flush, Flush pertains to all indwelling lines. Flush per protocol found in the job aid using the link provided on this medication record., Routine 1333 (AUG Hold - Provider: Admin Adt - Reason: Transfer to a Procedural area)1548 (AUG Unhold - Provider: Admin Adt) documented in this encounter Additional Health Concerns Infection Onset Date Last Indicated Resolved Time Rule Out Respiratory 11/02/2023 11/02/2023 024 12:22 PM EDT Rule Out COVID-19 11/02/2023 11/02/2023 11/02/2023 12:22 PM EDT documented as of this encounter Care Teams Soldering Technician Relationship Specialty Start Date End Date Rosie Mathews MD [address] [place] [id number] PCP - General Family Medicine 11/25/17 11/23/23 documented as of this encounter
--- OUTSIDE RECORDS SUMMARY | 2024-01-27 11:18 | XMS_ITS | Encounter Summary ---
Author Organization [facility] Address [facility] [place] [address] Care Team Providers Care Physical Therapist Assistant Name Role Phone Rosie Mathews MD Primary Care Provider [phone] Encounter Details Date Type Department Care Team (Late st Contact Info) Description 10/30/2023 [place] [address] Jose Lee MD [facility] [place] [address] Social History Tobacco Use Types Packs/Day Years Used Date Smoking Tobacco: Former Smokeless Tobacco: Never Alcohol Use Standard Drinks/Week Comments Not Currently 0 (1 standard drink = 0.6 oz pur e alcohol) [facility] Utilities Answer Date Recorded In the past 12 months has th e [employer], gas, oil, or water [employer] threatened to shut off services in your [...] 11:20 AM EDT Office Visit Cardiology at [address] [phone] Izaiah Meyer MD [facility] [place] [address] documented as of this encounter Visit Diagnoses Not on filedocumented in this encounter Additional Health Concerns Infection Onset Date Last Indicated Resolved Time Rule Out Respiratory 11/02/2023 11/02/2023 024 12:22 PM EDT Rule Out COVID-19 11/02/2023 11/02/2023 11/02/2023 12:22 PM EDT documented as of this encounter Care Teams Physical Therapist Assistant Relationship Specialty Start Date End Date Rosie Mathews MD [address] [place] [address] PCP - General Family Medicine 11/25/17 11/23/23 documented as of this encounter
--- OUTSIDE RECORDS SUMMARY | 2024-01-27 11:18 | XMS_ITS | Encounter Summary ---
Author Organization [facility] [place] Address [address] [place] [address] Care Team Providers Care Open Hearth Melter Name Role Phone Unavailable Primary Care Provider Unavailabl e Encounter Details Date Type Department Care Team (Late st Contact Info) Description 01/10/2008 Before PRISM Converted Visit (Maple) [facility] - Maple conversion [address] [place] [address] Ray Farooq MD [address] [place] [phone] Social History Tobacco Use Types Packs/Day Years Used Date Smoking Tobacco: Never Assessed Sex and Gender Information Value Date Recorded Sex Assigned at Not on file Gender Identity Not on file Sexual Orientation Not on file documented as of this encounter Consult Notes * Ray Farooq MD - 03/21/2009 5449 EDT [facility] - 01/10/2008 Kirsten Bateman MD [facility] [address] [place] [address] Bateman: Chief complaint: Hearing loss. History of present illness: Xhucb[age]frqoc-wuge-old female with along history of bilateral hearing loss. She has a greater than 30 year history of noise exposure and her hearing has gradually gotten worse over the years. She has an associated high pitched tinnitus worse as the day goes on. She wears hearing protection. Her symptoms are of mild severity, constant. No vertigo, pain, or drainage. No history of head injury, meningitis, family history of hereditary hearing loss, or ototoxic exposure. Past medical history: Significant for hypertension. Previous surgeries include back surgery, tendinitis, rotator cuff repair and carpal tunnel release. Current medications include Simvastatin, atenolol, amitriptyline, aspirin, vitamin E, C, B12, B125 complex, Torey-Sophie, EPA fatty acid, coral calcium complex, potassium chloride, Diovan, and hormone essentials. She has drug allergies to cortisone, Percocet, and hydrocodone. Family history is significant for cancer. Social history: The patient is a nonsmoker, nondrinker. She lives in [place]. Review of systems is significant for allergies, corrective lenses, and hypertension. Otherwise negative for multiple system reviews. Physical exam: General: Well-developed, well-nourished, pleasant, cooperative adult female in no acute distress. Normal voice. Height 5 feet 1 ?? inches. Weight 160. Vital signs: Blood pressure 138/70, pulse 64, respirations 14, temperature 97.7. No reportable pain. The face is normal without lesions. No tenderness to palpation. Salivary glands are normal. Facial strength is symmetric. Eye exam is normal. Ears: External ears are normal. Canals are clear. Tympanic membranes are normal, translucent, and mobile. Nose: Nasal dorsa is midline. The airway is patent. Oral cavity is clear. Posterior pharynx reveals mild postnasal drip more on the left. Neck: No pathologic lymphadenopathy. Trachea is midline. Thyroid is normal. Chest is clear to auscultation. Heart: Regular rate and rhythm. 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 SRTs are 30 decibels bilaterally. Excellent worddiscrimination and normal impedance. Impression: Bilateral sensorineural hearing loss. Recommendation: Consider hearing aid rehabilitation, and hearing aid clearance and instructions were written for the patient. Follow up with ENT in one-to-two years or p.r.n. for repeat audiogram. Sincerely, Signed by Ray Farooq MD 01/12/2008 09:38 Ray Farooq MD - Tosin Farooq MD - MLD Job ID: [id number] Doc ID: [id number] cc: Kirsten Bateman MD cc: Kirsten Bateman MD documented in this encounter Plan of Treatment Not on file documented as of this encounter Visit Diagnoses Not on filedocumented in this encounter
--- OUTSIDE RECORDS SUMMARY | 2024-01-27 11:18 | XMS_ITS | Clinical Summary ---
Author Organization [facility] Address [address] [place] [address] Care Team Providers Care Front Desk Specialist Name Role Phone Kirsten Bateman MD Primary Care Provider [phone] Allergies Active Allergy Reactions Criticality Noted Date Comments Cortisone 01/14/2010 Hydrocodone 01/14/2010 Oxycodone-Acetaminophen 01/14/2010 Medications Medication Sig Dispensed Refills Start Date End Date Status SIMVASTATIN ORAL Take by mouth. Acti ve ATENOLOL ORAL Take by mouth. Active AMITRIPTYLINE HCL (AMITRIPTYLINE ORAL) Take by mouth. Active ASPIRIN ORAL Take by mouth. Active VITAMIN E ACETATE (VITAMIN E ORAL) Take by mouth. Acti ve ASCORBIC ACID (VITAMIN C ORAL) Take by mouth. Active CYANOCOBALAMIN (VITAMIN B-12 ORAL) Take by mouth. A ctive PALM OIL/COCONUT OIL (FATTY ACID BASE MISC) by Misc.(Non-Drug; Combo Route) route. EPA Active CALCIUM CARBONATE (CORAL CALCIUM ORAL) Take by mouth. COMPLEX Active POTASSIUM CHLORIDE ORAL Take by mouth. Active VALSARTAN (DIOVAN ORAL) Take by mouth. Active Active Problems Problem Noted Date Diagnosed Date Hearing loss 01/14/2010 Sensorineural hearing loss 01/14/2010 Overview: BILATERAL Surgical History Surgery Date Site/Laterality Comments BACK SURGERY ROTATOR CUFF REPAIR CARPAL TUNNEL RELEASE Medical History Medical History Date Comments HTN (hypertension) Rotator cuff tendinitis ROTATOR CUFF REPAIR Social History Tobacco Use Types Packs/Day Years Used Date Smoking Tobacco: Never Alcohol Use Standard Drinks/Week Comments No 0 (1 standard drink = 0.6 oz pur e alcohol) Sex and Gender Information Value Date Recorded Sex Assigned at Not on file Gender Identity Not on file Sexual Orientation Not on file Obstetrics History Plan of Treatment Health Maintenance Due Date Last Done Comments RSV Immunization ( o r 60+ Years) (1 - 1-dose 60+ series) 1999 Fall Risk Screening 2004 COVID-19 Vaccine (2022-24 season) 2023 Care Teams Front Desk Specialist Relationship Specialty Start Date End Date Kirsten Bateman MD [address] [place] [phone] PCP - General 01/13/10
--- OUTSIDE RECORDS SUMMARY | 2024-01-27 11:18 | XMS_ITS | Encounter Summary ---
Author Organization [facility] Address [facility] [place] [address] Care Team Providers Care Truck Technician Name Role Phone Rosie Mathews MD Primary Care Provider [phone] Reason for Visit * Reason Comments Skin Lesion * Consultation (Routine) - Closed Specialty Diagnoses / Procedures Referred By John hunt Referred To Contact Dermatology Diagnoses facial skin lesion Procedures pt would like to be seen PRADEEP Rosie Mathews MD [address] [place] [address] [facility] D[facility]at[facility] [address] [place] [address] Referral ID Status Reason Start Date Expiration Date V isits Requested Visits Authorized [id number] Closed Consult, Test & Treat [facility] 10/25/2017 10/25/2018 1 1 Encounter Details Date Type Department Care Team (Late st Contact Info) Description 11/25/2017 4:30 PM EDT Office Visit Dermatology at [facility] [address] [place] [address] Call, Radu Go MD [facility] [address] [place] [address] Seborrheic keratosis; Fibrous papule of nose; Skin tags, multiple acquired Social History Tobacco Use Types Packs/Day Years Used Date Smoking Tobacco: Former Smokeless Tobacco: Never Sex and Gender Information Value Date Recorded Sex Assigned at Not on file Gender Identity Not on file Sexual Orientation Not on file documented as of this encounter Progress Notes * Radu Tom - 11/25/2017 4:30 PM EDT Images from the original note were not included. DERMATOLOGY - NEW PATIENT NOTE Date of service: 11/25/2017 Lyla Goodrich : 1940, 77 y.o. Chief Complaint: Chief Complaint Patient presents with ??? Skin Lesion HPI: Lyla Goodrich is a 77 y.o. female referred by Rosie Mathews with the following concerns: ?? Brown lesion on her right cheek that had a raised area that fell off but is now growing back. The lesion is sometimes itchy. ?? She also has a itchy lesion on her back, unsure how long present. ?? Would also like a patch on her left forearm evaluated. ?? Patient also states she had pneumonia in September and has had a bump on her inner right nostril since then. Relevant Skin History: - Okay to leave detailed message with results? Yes - Skin cancer (including type): None Family History: Melanoma: None Relevant Social History: - Retired Meds: Current Outpatient Prescriptions Medication Sig Dispense Refill ??? CIS Free Text Med - vitamin b 125 complex ??? CIS Free Text Med - epa fatty acid ??? CIS Free Text Med - hormone essential ??? simvastatin (ZOCOR) 20 mg tablet ??? ATENOLOL ORAL ??? amitriptyline (ELAVIL) 25 mg tablet ??? potassium chloride (MICRO-K) 10 mEq CR capsule ??? VALSARTAN/HYDROCHLOROTHIAZIDE (DIOVAN HCT ORAL) ??? aspirin 81 mg EC tablet ??? VITAMIN E ACETATE (VITAMIN E ORAL) ??? ASCORBIC ACID (VITAMIN C ORAL) ??? CYANOCOBALAMIN, VITAMIN B-12, (VITAMIN B-12 ORAL) ??? CALCIUM ORAL ??? hydroCODone-acetaminophen (VICODIN) 5-500 mg per tablet 1-2 Tablet(s), PO, Q6H prn No current facility-administered medications for this visit. Allergies: Allergies Allergen Reactions ??? Hydrocodone CIS - Nausea/Vomiting ??? Hydrocortisone CIS - swelling ??? Oxycodone-Acetaminophen CIS - Nausea/Vomiting Review of Systems: - General: Feels well. - Skin: No other skin concerns. Examination: - Constitutional: Patient was alert, well-appearing and in no noticeable distress. - Skin: An examination of the face, back, forearms and feet was performed. Diagnosis/Skin findings/Assessment/Plan: 1. Seborrheic keratoses - Right malar cheek x1, back x1, left wrist x1: Multiple 0.4-0.6cm brown papules with waxy, stuck-on appearance. Milia-like cysts, comedone-like openings and/or fissuring on dermoscopy. - Patient reassured of benign nature. - No treatment necessary. - Advised patient to call if areas become inflamed or irritated. 2. Fibrous papule - Right nare - Patient reassured of benign nature. - No treatment necessary. - Instructed to call with any concerns. 3. Skin tags - Periocular area - Discussed with patient that treatment/removal would be considered cosmetic, therefore insurance would not cover it and patient would be expected to pay out of pocket, in full, at time of service. Patient declines at this time. RTC: Call or return to clinic prn if these symptoms worsen or fail to improve as anticipated. Note initiated by Erin Beasley LPN. Clinical scribe: Promise Capone - I am documenting this encounter acting as the scribe for and in the presence of Radu Tom MD I performed the above scribed service and agree with the accuracy of the documentation in this encounter. Reviewed and signed by Radu Tom MD Resident in Dermatology [facility] Patient seen in conjunction with staff house worker general: Terri Hale MD Section of Dermatology [facility] * Terri Hale MD - 11/25/2017 4:30 PM EDT I directly supervised Dr. Tom during this office visit. Dr. Tom presented the history and physical exam to me. I then saw and examined this patient with Dr. Tom. We reviewed the history and pertinent details and I confirmed the physical findings. I agree with the details of the history and physical exam as documented in Dr. Tom's note. TERRI HALE MD Staff Physician documented in this encounter Plan of Treatment Upcoming Encounters Date Type Department Care Team (Late st Contact Info) Description 03/29/2024 11:20 AM EDT Office Visit Cardiology at [address] [phone] Izaiah Meyer MD [facility] [place] [address] documented as of this encounter Visit Diagnoses Diagnosis Seborrheic keratosis Other seborrheic keratosis Fibrous papule of nose Benign neoplasm of skin of other and unspecified parts of face Skin tags, multiple acquired documented in this encounter Care Teams Truck Technician Relationship Specialty Start Date End Date Rosie Mathews MD [address] [place] [address] PCP - General Family Medicine 11/25/17 11/23/23 documented as of this encounter
--- OUTSIDE RECORDS SUMMARY | 2024-01-27 11:18 | XMS_ITS | Encounter Summary ---
Author Organization [facility] Address [address] [place] [address] Care Team Providers Care Fabrication Operator Name Role Phone Kirsten Bateman MD Primary Care Provider [phone] Encounter Details Date Type Department Care Team (Late st Contact Info) Description 01/27/2021 Lab Requisition [facility] Pathology & Laboratory Medicine - [facility] [address] [place] [address] Outr Resulting Lab, Provider Social History Tobacco Use Types Packs/Day Years Used Date Smoking Tobacco: Never Alcohol Use Standard Drinks/Week Comments No 0 (1 standard drink = 0.6 oz pur e alcohol) Sex and Gender Information Value Date Recorded Sex Assigned at Not on file Gender Identity Not on file Sexual Orientation Not on file documented as of this encounter Plan of Treatment Not on file documented as of this encounter Procedures Procedure Name Priority Date/Time Associated Diagnosis Comments ZZCOVID-19 TEST [facility] PCR Today 01/26/2021 16:45 EDT COVID-19 TESTING Routine 01/26/2021 16:4 5 EDT documented in this encounter Results * COVID-19 TEST [facility] PCR (01/26/2021 16:45 EDT) Swab ENTIRE NASOPHARYNX / Unknown 01/26/2021 16:45 EDT 01/27/2021 15:46 EDT Provider Outr Resulting Lab MICROBIOLOGY - GENERAL ORDERABLES [facility] [address] [place] [address] * COVID-19 TESTING (01/26/2021 16:45 EDT) COVID-19 rt-PCR Result Negative Negative 01/28/2021 13:31 EDT [facility] Comment: This test has not been FDA cleared or approved. This test has been authorized by FDA under an EUA for use by authorized laboratories. This test has been authorized only for detection of nucleic acid from 2019-nCoV, not for any other viruses or pathogens. This test is only authorized for the duration of the declaration that circumstances exist justifying the authorization of emergency use of in vitro diagnostic tests for detection and/or diagnosis of 2019-nCoV under section 564(b)(1) of Act, 21 U.S.C ?? 360bbb-3(b) (1), unless the authorization is terminated or revoked sooner. Negative results do not preclude 2019-nCoV infection and should not be used as the sole basis for treatment or other patient management decisions. Negative results must be combined with clinical observations, patient history, and epidemiological information. This test was developed and its performance characteristics determined by [facility]. It has not been cleared or approved by the US Food and Drug Administration. FDA does not require this test to go through premarket FDA review. This test is used for clinical purposes. It should not be regarded as investigational or for research. This laboratory is certified under the Clinical Laboratory Improvement Amendments (CLIA) as qualified to perform high complexity clinical laboratory testing. This test is based on the [facility] COVID-19 Emergency Use Authorization (EUA) assay, with minor modification as defined by the FDA Performed on the [employer] 7 Pro RT-PCR System. Performing Lab [facility] Lab 01/28/2021 13:31 EDT [facility] Swab 01/26/2021 16:4 5 EDT 01/27/2021 15:46 EDT Provider Outr Resulting Lab MICROBIOLOGY - GENERAL ORDERABLES [facility] [address] [place] [address] documented in this encounter Visit Diagnoses Not on filedocumented in this encounter Care Teams Fabrication Operator Relationship Specialty Start Date End Date Kirsten Bateman MD [address] [place] [address] PCP - General 01/13/10 documented as of this encounter
--- OUTSIDE RECORDS SUMMARY | 2024-01-27 11:18 | XMS_ITS | Referral Summary ---
Author Organization [facility] Address [address] [place] [address] Care Team Providers Care Control Engineer Name Role Phone Kirsten Bateman MD Primary Care Provider [phone] Allergies Active Allergy Reactions Criticality Noted Date [...] 01/14/2010 Sensorineural hearing loss 01/14/2010 Overview: BILATERAL Social History Tobacco Use Types Packs/Day Years Used Date Smoking Tobacco: Never Alcohol Use Standard Drinks/Week Comments No 0 (1 standard drink = 0.6 oz pur e alcohol) Sex and Gender Information Value Date Recorded Sex Assigned at Not on file Gender Identity Not on file Sexual Orientation Not on file Plan of Treatment Not on file Care Teams Control Engineer Relationship Specialty Start Date End Date Kirsten Bateman MD [address] [place] [address] [facility] - General 01/13/10
--- OUTSIDE RECORDS SUMMARY | 2024-01-27 11:18 | XMS_ITS | Encounter Summary ---
Author Organization Counts Include [facility] Address [facility] [place] [address] Care Team Providers Care Outpatient Receptionist Name Role Phone Rosie Mahtews MD Primary Care Provider Encounter Details Date Type Department Care Team (Late st Contact Info) Description 10/30/2023 [place] [address] Jose Lee MD [facility] [place] [address] Social History Tobacco Use Types Packs/Day Years Used Date Smoking Tobacco: Former Smokeless Tobacco: Never Alcohol Use Standard Drinks/Week Comments Not Currently 0 (1 standard drink = 0.6 oz pur e alcohol) IPV Inpatient Questions Answer Date Recorded Does [...] encounter Miscellaneous Notes * Telephone Encounter - Jose Lee MD - 10/30/2023 4:04 PM EDT Images from the original note were not included. Initial Contact Date: 10/30/2023 Referring Provider: Bree Patient Location: [facility] HPI: 83 yoF w/ PMHx of HTN, HLD, who presents with chest pain. Cardiology was consulted for possible STEMI. Reportedly her chest pain started this morning around 2-3 hours ago. Describes it as central chest pain going to her right arm and back. It began at rest, and she felt weak. Given ongoing chest pain she presented to the ED. No tobacco use, and non-diabetic as reported. In the ED: Initially presented around 1:50 PM as a walk in Initial trop was negative Chest pain resolved with nitrox3 and ASA BP 132/83, HR 122, 91% on RA OSH Interventions: ASA load Ticagrelor 180 Hep gtt Metoprolol Assessment: 83 yoF w/ PMHx of HTN, HLD, who presents with chest pain and found with concern for NSTEMI. Initially ECG concerning for possible STEMI with inferior TRU, however on repeat, her TRU resolved,and she was chest pain free after nitro and ASA. Hemodynamically normal, tachycardic, with initial negative troponin. Received ASA load, ticagrelor, and started on hep gtt. Given her history along with ischemic signs and symptoms, will accept transfer for NSTEMI. No thrombolytics given. Recommendations: - trend troponins and ECG - continue ASA, ticag - hep gtt - high intensity statin - bblocker as tolerated - TTE - plan for LHC Above recommendations were based on my discussion with Dr. Giron; I have not personally interviewed or examined this patient. Advised to call the transfer center back with any changes in the patient condition. Jose Lee MD Sales Order Clerk documented in this encounter Plan of Treatment Upcoming Encounters Date Type Department Care Team (Late st Contact Info) Description 03/29/2024 11:20 AM EDT Office Visit Cardiology at [address] [place] [address] Izaiah Meyer MD [facility] [place] [address] documented as of this encounter Visit Diagnoses Not on filedocumented in this encounter Care Teams Outpatient Receptionist Relationship Specialty Start Date End Date Rosie Mathews MD [address] [place] [address] PCP - General Family Medicine 11/25/17 11/23/23 documented as of this encounter
--- OUTSIDE RECORDS SUMMARY | 2024-01-27 11:18 | XMS_ITS | Encounter Summary ---
Author Organization [facility] Address [address] [place] [address] Care Team Providers Care Journeyman Sheet Metal Worker Name Role Phone Kirsten Bateman MD Primary Care Provider Encounter Details Date Type Department Care Team (Late st Contact Info) Description 01/14/2010 Abstract Used for ABSTRACTING Data [phone] Kirsten Bateman MD [address] [place] [address] Social History Tobacco Use Types Packs/Day Years [...] Diagnoses Not on filedocumented in this encounter Historical Medications * This list may reflect changes made after this encounter. Medication Sig Dispensed Refills Start Date End Date VALSARTAN (DIOVAN ORAL) Take by mouth. POTASSIUM CHLORIDE ORAL Take by mouth. CALCIUM CARBONATE (CORAL CALCIUM ORAL) Take by mouth. COMPLEX PALM OIL/COCONUT OIL (FATTY ACID BASE MISC) by [facility].(Non-Drug; Combo Route) route. EPA CYANOCOBALAMIN (VITAMIN B-12 ORAL) Take by mouth. ASCORBIC ACID (VITAMIN C ORAL) Take by mouth. VITAMIN E ACETATE (VITAMIN E ORAL) Take by mouth. ASPIRIN ORAL Take by mouth. AMITRIPTYLINE HCL (AMITRIPTYLINE ORAL) Take by mouth. ATENOLOL ORAL Take by mouth. SIMVASTATIN ORAL Take by mouth. added in this encounter Care Teams Journeyman Sheet Metal Worker Relationship Specialty Start Date End Date Kirsten Bateman MD [address] [place] [phone] PCP - General 01/13/10 documented as of this encounter
--- OUTSIDE RECORDS SUMMARY | 2024-01-27 11:18 | XMS_ITS | Encounter Summary ---
Author Organization [facility] Address [facility] [place] [address] Care Team Providers Care Woods Manager Name Role Phone Rosie Mathews MD Primary Care Provider [phone] Reason for Visit * Consultation (Routine) - Closed Specialty Diagnoses / Procedures Referred By John hunt Referred To Contact Audiology Diagnoses Hearing assessment and treatment options Karson John MD [address] [place] [address] [facility] [address] [place] [id number] Referral ID Status Reason Start Date Expiration Date V isits Requested Visits Authorized [id number] Closed Consult, Test & Treat Connection Center 11/22/2017 11/22/2018 1 1 Encounter Details Date Type Department Care Team (Latest Contact Info) Description 11/30/2017 3:15 PM EDT Office Visit Audiology at [address] [phone] Georgette Onofre AUD [facility] [place] [address] Sensorineural hearing loss, bilateral; Bilateral tinnitus Social History Tobacco Use Types Packs/Day Years Used Date Smoking Tobacco: Former Smokeless Tobacco: Never Sex and Gender Information Value Date Recorded Sex Assigned at Not on file Gender Identity Not on file Sexual Orientation Not on file documented as of this encounter Progress Notes * Georgette Onofre, ROMEO - 11/30/2017 3:15 PM EDT AUDIOLOGY SECTION AUDIOLOGIC EVALUATION Name: Lyla Goodrich Age: 77 y.o. Referring provider: Karson John MD Date: 11/30/2017 Reason for referral: Evaluation of hearing loss History: Lyla Goodrich was seen today for an audiologic evaluation due to concerns of hearing loss. Ms. Goodrich reported a longstanding history of bilateral hearing loss, which she relates to a history of noise exposure. 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 Ms. Goodrich obtained binaural [facility] in-the-ear hearingaids nine years ago in [place], [place]. She stated she continues to experience significant difficulty understanding speech even with use of her hearing aids. Ms. Goodrich stated she is interested in pursuing a cochlear implant. Otologic symptoms: -Tinnitus: Reported a longstanding history of bilateral tinnitus described as a ringing sound; She noted the tinnitus may be worse in the left ear -Otalgia: Denied -Aural fullness: Denied -Middle ear pathology: Denied -Dizziness: Denied -Familial hearing loss: Includes her older sister and older brother who currently use amplification -Noise exposure: As described above -Trauma of the head/neck: Denied -Surgery of the head/neck: Denied EVALUATION: (please refer to audiogram) RESULTS/IMPRESSIONS: ?? Otoscopy was unremarkable bilaterally. ?? Bilateral mild from 250-1,000 Hz with a moderate sloping to moderately- severe/severe from 1,500-8,000 Hz sensorineural hearing loss. ?? Word recognition scores were determined to be fair/poor (76% correct-right; 68% correct-left) bilaterally at an elevated presentation level (80 dB HL). QuickSIN test was administered.The QuickSIN is a speech in noise test that measures the ability to hear in noise.Speech understanding in noise cannot be reliably predicted from the pure tone audiogram. SNR loss is the increased urkust-vp-oypyi ratio required by an individual to understand speech innoise, as compared to normal performance. The recorded sentences represent a realistic situation ofa social gathering in which the listener may tune out the target talker and tune in one or moreof the background talkers. A normal hearing person requires about +2 dB SNR (target talker 2 dB louder than background babble talkers) to correctly repeat 50% of the herman words on the QuickSIN. Therefore, normal/near normal performance on the QuickSIN is a score of 0-3 dB SNR loss. A SNR loss of 3-7dB indicates a mild SNR loss. A score of 7-15 dB indicates a moderate SNR loss. The QuickSIN was administered binaurally under insert earphones at 75 dB HL yielding an average +12.0 dB SNR loss. ?? Tympanometry suggested normal middle ear system function bilaterally. ?? Today's results indicated substantial auditory based communication deficits. ?? Lyla Goodrich is a good candidate for amplification and general aural rehabilitation. ?? Amplification was discussed with Ms. Goodrich and literature was provided. A hearing aid selection, fitting and follow up appointments are to be scheduled at her convenience. ?? It was discussed with Ms. Goodrich her hearing loss does not meet the criteria for cochlear implant candidacy. RECOMMENDATIONS: 1. Return to clinic for hearing aid consultation appointment at her convenience. 2. Annual re-evaluation; sooner if concerns arise. 3. Use of communication strategies in noisy environments (i.e speaking face to face and reducing background noise). 4. Use of hearing protection when exposed to hazardous noise. Please do not hesitate to contact this Section at [phone] if there are questions regarding this report or its recommendations. Romeo Becker [place] [id number] Attachment: audiogram CC: MD Karson Loo MD Laurmarco a Catherine Edvinjonatanjosue [facility] [address] [place] [id number] documented in this encounter Plan of Treatment Upcoming Encounters Date Type Department Care Team (Late st Contact Info) Description 03/29/2024 11:20 AM EDT Office Visit Cardiology at [address] [place] [address] Izaiah Meyer MD [facility] [place] [address] documented as of this encounter Procedures Procedure Name Priority Date/Time Associated Diagnosis Comments COMPREHENSIVE HEARING TEST Routine 11/30/2017 3:17 PM EDT documented in this encounter Results * Comprehensive hearing test (11/30/2017 3:17 PM EDT) 11/30/2017 3:17 PM EDT Unknown AUDIOLOGY [facility] [employer] documented in this encounter Visit Diagnoses Diagnosis Sensorineural hearing loss, bilateral Bilateral tinnitus documented in this encounter Care Teams Woods Manager Relationship Specialty Start Date End Date Rosie Mathews MD [address] [place] [id number] PCP - General Family Medicine 11/25/17 11/23/23 documented as of this encounter
--- OUTSIDE RECORDS SUMMARY | 2024-01-27 11:18 | XMS_ITS | Encounter Summary ---
Author Organization [facility] Address [facility] [place] [address] Care Team Providers Care Land Surveyor Assistant Name Role Phone Rosie Mathews MD Primary Care Provider [phone] Encounter Details Date Type Department Care Team (Late st Contact Info) Description 10/30/2023 External Results Transfer Center [facility] [place] [address] Social History Tobacco Use Types Packs/Day Years Used Date Smoking Tobacco: Former Smokeless Tobacco: Never Alcohol Use Standard Drinks/Week Comments Not Currently 0 (1 standard drink = 0.6 oz pur e alcohol) [facility] Utilities Answer Date Recorded In the past 12 months has e [employer], gas, oil, or water [employer] threatened to shut off services in your [...] place to sleep or slept in a long-term (including now)? No 11/01/2023 [facility] IPV Inpatient [...] 11:20 AM EDT Office Visit Cardiology at [address] [address] Izaiah Meyer MD [facility] [place] [address] documented as of this encounter Procedures Procedure Name Priority Date/Time Associated Diagnosis Comments ECG SCAN Routine 10/30/2023 3:58 PM EDT ECG SCAN Routine 10/30/2023 3:23 PM EDT documented in this encounter Results * Scan Doc: ECG (10/30/2023 3:58 PM EDT) Historical Provider MEDIA MGR SCAN EX T ORDR/RSLT * Scan Doc: ECG (10/30/2023 3:23 PM EDT) Historical Provider MD GUPTA MGR SCAN EX T ORDR/RSLT documented in this encounter Visit Diagnoses Not on filedocumented in this encounter Care Teams Land Surveyor Assistant Relationship Specialty Start Date End Date Rosie Mathews MD [address] [place] [address] PCP - General Family Medicine 11/25/17 11/23/23 documented as of this encounter
--- OUTSIDE RECORDS SUMMARY | 2024-02-03 10:33 | XMS_ITS | Encounter Summary ---
Author Organization [facility] Address [facility] [place] [address] Care Team Providers Care Store Receiving Specialist Name Role Phone Rosie Mathews MD Primary Care Provider [phone] Reason for Referral * Consultation (Routine) - Authorized Specialty Diagnoses / Procedures Referred By Contac t Referred To Contact Cardiology Diagnoses 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 Rosa Hugo MD [facility] [place] [address] Cardiac Rehab, [address] [place] [address] Referral ID Status Reason Start Date Expiration Date Visits Requested Visits Authorized [id number] Authorized Consult, Test & Treat Non PCP 11/03/2023 05/01/2024 36 36 * Home Health Care (Routine) - Authorized Specialty Diagnoses / Procedures Referred By Contac t Referred To Contact Diagnoses Unstable angina Rosa Hugo MD [facility] [place] [address] Referral ID Status Reason Start Date Expiration Date Visits Requested Visits Authorized [id number] Authorized Consult, Test & Treat 11/03/2023 05/01/2024 999 999 Reason for Visit * Auth/Cert (Routine) Specialty Diagnoses / Procedures Referred By John hunt Referred To Contact Diagnoses Unstable angina Chest pain NSTEMI Procedures CARDIAC CATHETERIZATION Rosa Dewey MD [facility] [place] [address] [facility] Referral ID Status Reason Start Date Expiration Date Visits Re quested Visits Authorized [id number] 1 1 Encounter Details Date Type Department Care Team (Latest Contact Info) Description 10/30/2023 5:11 PM EDT - 11/03/2023 5:13 PM EDT Hospital Encounter Heart and Vascular Unit Level 4 [place] [address] Rosa Dewey MD [facility] [place] [address] Jean Laboy MD [facility] [place] [address] Rosa Hugo MD [facility] [place] [address] 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; Tachycardia; Unstable angina Discharge Disposition: Home Social History Tobacco Use Types Packs/Day Years Used Date Smoking Tobacco: Former Smokeless Tobacco: Never Alcohol Use Standard Drinks/Week Comments Not Currently 0 (1 standard drink = 0.6 oz pur e alcohol) [facility] Utilities Answer Date Recorded In the past 12 months has e [employer], gas, oil, or water [employer] threatened to shut off services in your [...] place to sleep or slept in a intermediate (including now)? No 11/01/2023 DH IPV Inpatient [...] for hypertension and hyperlipidemia who presented to [facility] as a transfer from [facility] as a possible STEMI alert with acute onset chest pain. The patient reports that her symptoms initially began on Tuesday when she was walking to [employer] and experienced bilateral arm heaviness while walking with no other symptoms. Then, this afternoon shereports developing bilateral achy shoulder pain and nonradiating substernal left-sided chest pressure that was 7/10 in severity after coming home from [facility]. The patient denies any associated fevers, chills, diaphoresis, lightheadedness/dizziness, syncope/presyncope, dyspnea (either at rest or on exertion), palpitations, orthopnea, or PND. The patient subsequently presented to [facility] as a walk-in for further evaluation. [...] on repeat, her TRU resolved. Cardiology at [facility] was consulted for transfer; the patient was loaded with aspirin 324 mg and ticagrelor 180 mg, started on a heparin drip, and given nitroglycerin with improvement in chest pain. Upon arrival to [facility], the patient was taken directly to the Dump Motor Operator. Two lesions were discovered: one in the prox RCA (felt to almost be a HARVESTING MANAGER but they were able to wire, balloon, [...] dose administered prior to arrival in the microbiology lab analyst. Recommended anti-platelet/anti-thrombotic regimen: Continue aspirin 81 mg [...] and low lung volumes. Findings similar to lung gun operator radiograph from CT 10/30/2023. Pending Studies and [...] 10:40 AM Izaiah Meyer MD Cardiology at [place] Arrive at: [facility] [address] [phone] Future Orders Complete By Expires Referral to Cardiac Rehab [[id number] Custom] As directed Process Instructions: If no progress note charted, please enter Clinical details in comments. Scheduling Instructions: Questions: My question or request is: STEMI. Cardiac rehab at [facility]. Referral to Home Health [[id number] Custom] As directed Process Instructions: If no progress note charted, please enter Clinical details in comments. Scheduling Instructions: Comments: Please evaluate Adin Santos for admission to Home Health. [address] [facility] [phone] (home) Date of : 1940 Inpatient DOCUMENTATION FOR VNA SERVICES (INCLUDING THOSE PATIENTS WITH MEDICARE COVERAGE REQUIRING HOME VNA SERVICES AND/OR HOSPICE SERVICES) PATIENT'S LOCATION: Adin Santos [address] [facility] [id number] (home) Cell: Telephone Information: Gas Producer's Name: self In discussion with the attending physician, it is certified that this patient is under their care and that they, or a Nurse Practitioner, Clinical Nurse specialist or Physician Patient Care Representative who is working directly with them, had [...] regarding health issues HOME HEALTH CARE AGENCY: [facility] [address] [place] [address] START OF CARE: within 24-48 hours of [...] Rosie Mathews MD [address] / [facility] [address] . All A agencies which cover [...] Mathews MD / Dr. Masood Pierson [address] [place] [address] 11/09/23 1:55 PM arrival for 2:10 PM appointment Monogram And Letter Paster: Izaiah Meyer MD [address] [place] [id number] , 11/24/2023 10:40 AM Your Inpatient Medical Team at [facility] Name(s) of your inpatient provider(s): Attending physician: Rosa Hugo MD Resident physicians: Emile Robles MD; Elmer Tamez MD If you have non-emergent questions, prior to your follow-up visit call: Tuesday-Tuesday between the hours of 8AM-5PM please call the Cardiology Clinic [phone] to speak with a nurse. All other hours please call the Hospital Tumbler Operator [phone] and ask to speak to the patient safety sitter on-call. Your Primary Care Provider Rosie Mathews MD [phone] For questions regarding this document or issues relating to this hospitalization on the Medical Service, please contact your inpatient physician through the [facility] Tumbler Operator . Issues afterhours and on weekends will be handled by the Monogram And Letter Paster staff on-call. Associated attestation - Rosa Hugo [...] MD / Dr. Masood Pierson [address] [place] [address] 11/09/23 1:55 PM arrival for 2:10 PM appointment Monogram And Letter Paster: Izaiah Meyer MD [address] [place] [address] , 11/24/2023 10:40 AM Your Inpatient Medical Team at [facility] Name(s) of your inpatient provider(s): Attending physician: Rosa Hugo MD Resident physicians: Emile Robles MD; Elmer Tamez MD If you have non-emergent questions, prior to your follow-up visit call: Tuesday-Tuesday between the hours of 8AM-5PM please call the Cardiology Clinic [phone] to speak with a nurse. All other hours please call the Hospital Tumbler Operator [phone] and ask to speak to the patient safety sitter on-call. Your Primary Care Provider Rosie Mathews MD [phone] documented in this encounter Medications at Time [...] for hypertension and hyperlipidemia who presented to [facility] as a transfer from [facility] as a possible STEMI alert with [...] for hypertension and hyperlipidemia who presented to [facility] as a transfer from [facility] as a possible STEMI alert with [...] Resident on Cardiology Service Cardiology S1 (Pager [phone]) Note written in conjunction with Claudio Perla [facility] Medical Student, [...] Nirmala Webb - 11/01/2023 11:25 AM EDT Lightout Examiner Encounter Note Patient Name: Adin Santos : [id number] MR#: [id number] Admit Date: 10/30/2023 5:11 PM Hospital Day 2 days Narrative: Self initiated visit to patient for Spiritual support in a regular unit rounds. Assessment: Patient is in the bathroom at the time of this visit. Not a good time for Account Assistant visit. Intervention and Outcome: An attempted visit [...] for hypertension and hyperlipidemia who presented to [facility] as a transfer from [facility] as a possible STEMI alert with [...] and low lung volumes. Findings similar to lung gun operator radiograph from CT 10/30/2023. Scheduled Medications: [AUG [...] for hypertension and hyperlipidemia who presented to [facility] as a transfer from [facility] as a possible STEMI alert with [...] Resident on Cardiology Service Cardiology S1 (Pager [phone]) Note written in conjunction with Claudio Perla [facility] Medical Student, [...] for hypertension and hyperlipidemia who presented to [facility] as a transfer from [facility] as a possible STEMI alert with acute onset chest pain. Active Problems: Active Hospital Problems Diagnosis Unstable angina Resolved Hospital Problems No resolved problems to display. 24 hr events: - Cath'd yesterday with lesion in the proximal RCA (initially thought it was HARVESTING MANAGER but they were ableto wire, balloon and [...] and low lung volumes. Findings similar to lung gun operator radiograph from CT 10/30/2023. TTE (05/13): Interpretation [...] for hypertension and hyperlipidemia who presented to [facility] as a transfer from [facility] as a possible STEMI alert with [...] Resident on Cardiology Service Cardiology S1 (Pager [phone]) Note written in conjunction with Claudio Perla [facility] Medical Student, [...] PCP: Rosie Mathews MD PCP phone number: [phone] Date of Admission: 10/30/2023 ( Hospital Day 0 days ) Attending:Rosa Cornejo MD ID: Adin Santos is a 83 y.o. female PMH significant for hypertension and hyperlipidemia who presented to [facility] as a transfer from [facility] as a possible STEMI alert with acute onset chest pain. The patient reports that her symptoms initially began on Tuesday when she was walking to [employer] and experienced bilateral arm heaviness while walking with no other symptoms. Then, this afternoon shereports developing bilateral achy shoulder pain and nonradiating substernal left-sided chest pressure that was 7/10 in severity after coming home from [facility]. The patient denies any associated fevers, chills, diaphoresis, lightheadedness/dizziness, syncope/presyncope, dyspnea (either at rest or on exertion), palpitations, orthopnea, or PND. The patient subsequently presented to [facility] as a walk-in for further evaluation. [...] on repeat, her TRU resolved. Cardiology at [facility] was consulted for transfer; the patient was loaded with aspirin 324 mg and ticagrelor 180 mg, started on a heparin drip, and given nitroglycerin with improvement in chest pain. Upon arrival to [facility], the patient was taken directly to the Dump Motor Operator. 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 Findings similar to lung gun operator radiograph from CT 10/30/2023. Assessment & Plan: Adin Santos is a 83 y.o. female PMH significant for hypertension and hyperlipidemia who presented to [facility] as a transfer from [facility] as a possible STEMI alert with [...] with HTN HLD transferred with chest from [facility]. BP 217/68, HR 71 EKG with [...] information for follow-up Home Health & Hospice, [place] [address] [place] [address] TANESHA BOYCE confirmed with [facility] that they will see the patient within 24-48 hours of discharge for start of care. Transportation: family or friend will provide Wheelchair van/Ambulance? No Functional status prior to admission: Assistive Equipment Home Environment: Others in the home: alone. Current Living Arrangements: home/apartment/condo. Accessibility Concerns:1st floor apartment in snf community; handicapped accessible. Current Functional Ability: Assistive Equipment DME used at home: cane - straight, grab bar - tub/shower, grab bar - toilet, raised toilet seat DME Needed at Discharge: N/A Patient is insured through: Primary Insurance: [employer]ICARE Payor: Eve MEDICARE / Plan: [employer] MEDIC[employer] PPO / Product Type: *No [...] in the room. Electrolytes replaced, see MAR. label fuser tender sites remained C/D/I with baseline ecchymosis unchanged. Pt complained of back pain, lidocaine patch given. Right IV infiltrated during infusion, patient is marked with sharpie, IV removed. See flowsheet for I+O's and safety rounding. Patient is able to make needs known and call capps within reach. PLAN MOVING FORWARD: Monitor Tele, control BP, monitor microbiology lab analyst sites, D/C Planning INDIVIDUALIZED FALL PREVENTION INTERVENTIONS: [...] in an outpatient cardiac rehabilitation program at [facility] was discussed. Patient agrees to a [...] and above on RA. PT went to microbiology lab analyst today. Left fem site oozed throughout shift, [...] MOVING FORWARD: Monitor Tele, control BP, monitor microbiology lab analyst sites, D/C Planning INDIVIDUALIZED FALL PREVENTION INTERVENTIONS: [...] Admitted From: Transfer from another hospital Location: [facility] Reason for Hospitalization: chest pain Covid Vaccination Status: 1st, 2nd & booster Past medical History: No past medical history on file. Hospitalizations Within the Past 30 Days: no previous admission in last 30 days Current Decision-Making Capacity: Self If AD's have not been completed the following surrogate would be surrogate decision maker per [place] surrogate decision making law. (Only good for 180 days) Any patient receiving care in [place] must abide by [place] law. The hierarchy for surrogate decision making [...] (i) The agent with financial power of deputy county attorney or a conservator appointed in accordance [...] Arrangements: home/apartment/condo. Accessibility Concerns:1st floor apartment in snf community; handicapped accessible. In the last 12 months, was there a time when you were not able to pay the mortgage or rent on time?: No In the last 12 months, how many places have you lived?: 1 In the last 12 months, was there a time when you did not have a steady place to sleep or slept in [facility] (including now)?: No In the past 12 [...] toilet seat Home Address confirmed as: [address] [place] [id number] Social & Family Supports: All names listed below confirmed with patient as current and correct Extended Emergency Contact Information Primary Emergency Contact: Iris Downing Address: [address] [place], [place] [id number] [place] [address] Mobile Relation: Child Secondary Emergency Contact: Karen More Address: [address] [facility] [facility] Mobile Relation: Child Current Care Provided by: self Provides Primary Care For: no one Caregiver if needed: child(emmanuel), adult Quality of Family relationships: involved, supportive Community Resources being provided currently: other (see comments) (receives [facility] services at home (1xweekly)) Behavioral Health [...] Insurance: N/A Prescription Coverage: Yes Preferred Pharmacy: [id number] - [place], [place] - [address] [facility] [address] [facility] [address] Status: Patient is a : No Primary Care Provider listed: Masood Pierson MD [phone] Patient/Caregiver Goals of Treatment: home when MR Potential Needs for Transition of Care: home health care Agency Referrals: Not Applicable I have met with the patient to: discuss discharge planning needs. provide the [facility], Office of Care Management letter from the [employer] pertaining to rehab referrals. provide a letter describing our affiliations within the [facility] and educate about their right to choose where referrals are sent. provide a list of Home Health Agencies / Durable Medical Equipment vendors which serve their preferred geographic area. provided patient with [facility] Star Quality Rating handout. They have requested referrals to: [facility] [address] [place] [address] Note routed to a Procurement Clerk who will communicate referrals to facilities and [...] results. PO hydralazine added for BP control. label fuser tender sites remain C/D/I, ecchymosis unchanged th roughout shift. See flowsheet for I+O's and safety rounding. Patient is able to make needs known and call capps within reach. PLAN MOVING FORWARD: Monitor Tele, control CP and BP, NPO at MD for cath, monitor microbiology lab analyst sites, D/C Planning INDIVIDUALIZED FALL PREVENTION INTERVENTIONS: [...] AM EDT Office Visit Cardiology at [address] [place] [address] Izaiah Meyer MD [facility] [place] [address] Scheduled Referrals Name Type Priority Associated Diagnoses [...] 3:46 AM EDT) Neutrophil % 63.3 % [facility] Neutrophil Absolute 5.28 1.70 - 6.10 x10(3)/mc L [facility] Lymph % 15.2 % [facility] Lymphocytes Abs 1.3 0.9 - 3.2 x10(3)/ L [facility] Monocyte % 16.9 % [facility] Monocyte Abs 1.4(H) 0.3 - 0.9 x10(3)/ L [facility] Eos % 3.7 % [facility] Eosinophils Abs 0.3 0.0 - 0.4 x10(3)/[facility] Basophil % 0.5 % [facility] Baso Absolute 0.0 0.0 - 0.1 x10(3)/ L [facility] Immature Gran % 0.40 % [facility] Comment: Immature granulocytes(IG's)percentage and absolute count will include metamyelocytes, myelocytes, and promyelocytes. Blood smears from CBCs yielding IG's will be scanned manually for concordance. If this scan disagrees with the automated IG or if promyelocytes are noted, a manual differential will be performed. Immature Gran Absolute 0.03 0.00 - 0.04 x10(3)/mc L [facility] Blood 11/03/2023 3:46 AM EDT 11/03/2023 4:11 AM EDT Narrative Resulting Agency Comment Spec In Lab Qamar Gallardo MD HEMATOLOGY ORDERABLE S [facility] [place] [address] * (ABNORMAL) Hemogram (11/03/2023 3:46 AM EDT) White Blood Cell 8.3 4.0 - 9.5 x10(3)/mc L [facility] Red Blood Cell 3.77(L) 4.00 - 5.21 x10(6)/mc L [facility] Hemoglobin 13.1 11.7 - 15.5 g/dL [facility] Hematocrit 38.0 35.7 - 45.8 % [facility] Mean Cell Volume 100.8(H) 82.6 - 94.4 fL [facility] Mean Cell Hemoglobin 34.7(H) 27.1 - 32.0 pg [facility] Mean Cell Hemoglobin Concentration 34.5 31.7 - 35.0 g/dL [facility] Platelet 181 145 - 357 x10(3)/[facility] RDW Standard Deviation 54.7(H) 37.0 - 46.0 [facility] RDW coefficient of variation 14.6(H) 11.5 - 14.1 % [facility] Mean Platelet Volume 11.2 7.6 - 12.9 [facility] NRBC% auto 0.0 % [facility] NRBC Absolute 0.000 0.000 - 0.000 x10(3)/ L [facility] Blood 11/03/2023 3:46 AM EDT 11/03/2023 4:11 AM EDT Narrative Resulting Agency Comment Spec In Lab Qamar Gallardo MD HEMATOLOGY ORDERABLE S [facility] [place] [address] * Phosphorus (11/03/2023 3:46 AM EDT) Phosphorus 3.2 2.5 - 4.5 mg/dL [facility] Comment:result rechecked-KS Blood 11/03/2023 3:46 AM EDT 11/03/2023 4:11 AM EDT Narrative Resulting Agency Comment Spec In Lab Rosa Cornejo MD CHEMISTRY ORDERABLE S [facility] [place] [address] * Magnesium (11/03/2023 3:46 AM EDT) Magnesium 0.90 0.69 - 1.07 mmol/L [facility] Blood 11/03/2023 3:46 AM EDT 11/03/2023 4:11 AM EDT Narrative Resulting Agency Comment Spec In Lab Rosa Cornejo MD CHEMISTRY ORDERABLE S Performing Organization Address City/[facility]/ZIP Co de Phone Number [facility] [place] [address] * (ABNORMAL) Basic Metabolic Panel (non-fasting) (11/03/2023 3:46 AM EDT) Glucose 105 65 - 199 mg/dL [facility] Comment:Diabetes: >=200 mg/d L plus symptoms Blood Urea Nitrogen 13 8 - 18 mg/dL [facility] Creatinine 0.83 0.70 - 1.20 mg/dL [facility] Sodium 139 135 - 145 mmol/L [facility] Potassium 4.0 3.5 - 5.0 mmol/L [facility] Comment: Please note: ??Patients with WBC >100,000 may have falsely elevated Potassium levels. ??For accurate Potassium quantification in these patients send serum separator tube (gold top) for subsequent determinations. ??Contact the Clinical Chemistry Laboratory if there are any questions. Chloride 108(H) 98 - 107 mmol/L [facility] Carbon Dioxide 19(L) 22 - 31 mmol/L [facility] Anion Gap 12 5 - 15 mmol/L [facility] Calcium 8.2(L) 8.5 - 10.5 mg/dL [facility] Est Glomerular Filtration Rate 69 >=60 mL/min/1. 73 m?? [facility] Comment: This patient's estimated GFR [...] Lab Rosa Cornejo MD CHEMISTRY ORDERABLE S [facility] [place] [phone] * EKG 12 Lead (11/02/2023 12:44 PM EDT) Ventricular rate 83 BPM MUSE SYSTEM Atrial Rate 83 BPM MUSE SYSTEM P-R Interval 216 ms MUSE SYSTEM QRS Duration 90 ms MUSE SYSTEM Q-T Interval 384 ms MUSE SYSTEM QTC Calculated (Bezet) 451 ms MUSE SYSTEM Calculated P Chester 92 degrees MUSE SYSTEM Calculated R Chester -51 degrees MUSE SYSTEM Calculated T Chester -33 degrees MUSE SYSTEM INTERPRETATION Sinus rhythm with 1st degree A-V block with Premature atrial complexes Left axis deviation Moderate voltage criteria for LVH, may be normal variant ( R in aVL , Ifeanyi product ) Anterolatera l infarct (cited on or before 01-NOV-2023) Abnormal ECG When compared with ECG of 01-NOV-2023 22:10, Premature atrial complexes are now Present DC interval has increased Vent. rate has decreased BY ??56 BPM Confirmed by MD Kevin, Esteban ([id number]) on 11/02/2023 1:32:10 PM MUSE SYSTEM 11/02/2023 12:4 4 PM EDT 11/02/2023 1:32 PM EDT Rosa Hugo MD ECG ORDERABLES MUSE SYSTEM * (ABNORMAL) Urinalysis Microscopic Exam (11/02/2023 11:40 AM EDT) RBC, Urine <1 0 - 4 /HPF [facility] Comment: Interpret results with caution, microscopic results are from suboptimal specimen volume WBC, Urine 16(H) 0 - 5 /HPF [facility] Comment: Interpret results with caution, microscopic results are from suboptimal specimen volume Bacteria, Urine Many(A) None /HPF [facility] LABORATORY Squamous Epithelial Cells Raw Data, Urine 10(H) <=4 /HPF [facility] Hyaline Casts, Urine 2 0 - 2 /LPF [facility] Comment: Interpret results with caution, microscopic results are from suboptimal specimen volume Clean Catch Urine 11/02/2023 11:40 AM EDT 11/02/2023 12:05 PM EDT Narrative Resulting Agency Comment Spec In Lab Elmer Tamez MD URINE ORDERABLES Performing Organization Address City/[facility] Co de Phone Number [facility] [place] [address] * (ABNORMAL) Urinalysis with reflex Culture (11/02/2023 11:40 AM EDT) Glucose, Urine Dipstick Negative Negative mg/dL [facility] Protein, Urine Dipstick 30(A) Negative mg/dL [facility] Bilirubin, Urine Dipstick Negative Negative mg/dL [facility] Comment: Clinical correlation required for positive Urine Bilirubin results as false positive may occur with some drugs and drug related products. If a false positive is suspected a serum total bilirubin should be considered if clinically indicated. Urobilinogen, Urine Dipstick Normal Normal mg/dL [facility] pH, Urn (dipstick) 5.5 5.0 - 8.0 [facility] Blood, Urine Dipstick Negative Negative mg/dL [facility] Ketone, Urine Dipstick Trace(A) Negative mg/dL [facility] Nitrite, Urine Dipstick Positive(A) Negative [facility] Leukocytes, Urine Dipstick Small(A) Negative [facility] Appearance, Urine Dipstick Cloudy(A) Clear [facility] Specific Pitman Urine Automated >=1.030(A) 1.005 - 1.030 [facility] Color, Urine Dipstick Dark Yellow Yellow [facility] Reflex to Culture Yes [facility] Clean Catch Urine 11/02/2023 11:40 AM EDT 11/02/2023 12:04 PM EDT Narrative Resulting Agency Comment Spec In Lab Rosa Hugo MD URINE ORDERABLES Performing Organization Address City/State/[facility] Co de Phone Number [facility] [place] [address] * Respiratory Panel PCR (11/02/2023 10:15 AM EDT) Respiratory Panel Source [employer] [facility] Respiratory Panel PCR Negative Negative [facility] Comment: Respiratory Panels are performed on the [employer], using multiplexed PCR nucleic acid detection. ??Negative results do not preclude respiratory infection and should not be used as the sole basis for diagnosis, treatment or other management decisions. Adenovirus Not Detected Not Detected [facility] Coronavirus HKU1 Not Detected Not Detected [facility] Coronavirus NL63 Not Detected Not Detected [facility] Coronavirus 229E Not Detected Not Detected [facility] Coronavirus OC43 Not Detected Not Detected [facility] SARS-CoV-2 Not Detected Not Detected [facility] Comment: Testing for SARS-CoV-2 (Severe acute respiratory syndrome coronavirus 2) to aid in the diagnosis of COVID-19 is performed using the [employer] Respiratory Panel 2.1 ([employer]) as authorized by the FDA issued Emergency Use Authorization (EUA). This panel also tests for multiple other viral and bacterial pathogens. This assay is intended for In-vitro Diagnostic (IVD) use with nasopharyngeal swabs in viral transport media. The assay is performed based on the instructions for use and additional guidance provided by the FDA. Testing is performed in laboratories within the [facility], each of which is certified under the [...] fact sheets at the following FDA website: https://www.fda.gov/medical-devices/qclxxcgmzcm-ylooixj-7528-peycc-24-mxzgozjei- use-a nfygulrdrrvue-wvzbeff-zlvzcui/jiofu-ywnipvuyeel-xsoi Human Metapneumovirus Not Detected Not Detected [facility] Human Rhinovirus/Enterov irus Not Detected Not Detected [facility] Influenza A Not Detected Not Detected [facility] Influenza B Not Detected Not Detected [facility] Parainfluenza 1 Not Detected Not Detected [facility] Parainfluenza 2 Not Detected Not Detected [facility] Parainfluenza 3 Not Detected Not Detected [facility] Parainfluenza 4 Not Detected Not Detected [facility] Respiratory Syncytial Virus Not Detected Not Detected [facility] Chlamydophila pneumoniae Not Detected Not Detected [facility] Mycoplasma pneumoniae Not Detected Not Detected [facility] Nasopharyngeal Swab 11/02/19 10:15 AM EDT 11/02/2023 10:49 AM EDT Narrative Resulting Agency Comment Spec In Lab Rosa Hugo MD MICROBIOLOGY - GEN ERAL ORDERABLES [facility] [place] [address] * XR Chest One View (11/02/2023 2:51 AM EDT) WORKSTATION ID [id number] RAD Anatomical Region Laterality Modality Chest N/A [...] who have questions please contact the health patient care representative that requested your imaging first. ? Electronically signed by: Omaira Tran MD, [facility] ([phone]), at 11/02/2023 4:56 AM Narrative 11/02/2023 4:56 [...] patients who have questions please contactthe health patient care representative that requested your imaging first. Electronically signed by: Omaira Tran MD, [facility]([phone]), at 11/02/2023 4:56 AM Rosa Hugo MD IMG DX ORDERABLES * (ABNORMAL) Differential, Automated (11/02/2023 12:35 AM EDT) Neutrophil % 76.5 % [facility] Neutrophil Absolute 7.69(H) 1.70 - 6.10 x10(3)/mc L [facility] Lymph % 8.3 % [facility] Lymphocytes Abs 0.8(L) 0.9 - 3.2 x10(3)/mc L [facility] Monocyte % 12.9 % [facility] Monocyte Abs 1.3(H) 0.3 - 0.9 x10(3)/mc L [facility] Eos % 1.4 % [facility] Eosinophils Abs 0.1 0.0 - 0.4 x10(3)/mc L [facility] Basophil % 0.4 % [facility] Baso Absolute 0.0 0.0 - 0.1 x10(3)/mc L [facility] Immature Gran % 0.50 % [facility] Comment: Immature granulocytes(IG's)percentage and absolute count will include metamyelocytes, myelocytes, and promyelocytes. Blood smears from CBCs yielding IG's will be scanned manually for concordance. If this scan disagrees with the automated IG or if promyelocytes are noted, a manual differential will be performed. Immature Gran Absolute 0.05(H) 0.00 - 0.04 x10(3)/mc L [facility] Blood 11/02/2023 12:3 5 AM EDT 11/02/2023 12:43 AM EDT Narrative Resulting Agency Comment Spec In Lab Qamar Gallardo MD HEMATOLOGY ORDERABLE S [facility] [place] [address] * (ABNORMAL) Hemogram (11/02/2023 12:35 AM EDT) White Blood Cell 10.0(H) 4.0 - 9.5 x10(3)/mc L [facility] Red Blood Cell 4.06 4.00 - 5.21 x10(6)/mc L [facility] Hemoglobin 13.8 11.7 - 15.5 g/dL [facility] Hematocrit 39.8 35.7 - 45.8 % [facility] Mean Cell Volume 98.0(H) 82.6 - 94.4 fL [facility] Mean Cell Hemoglobin 34.0(H) 27.1 - 32.0 pg [facility] Mean Cell Hemoglobin Concentration 34.7 31.7 - 35.0 g/dL [facility] Platelet 198 145 - 357 x10(3)/mc L [facility] RDW Standard Deviation 52.1(H) 37.0 - 46.0 fL [facility] RDW coefficient of variation 14.3(H) 11.5 - 14.1 % [facility] Mean Platelet Volume 11.4 7.6 - 12.9 [facility] NRBC% auto 0.0 % [facility] NRBC Absolute 0.000 0.000 - 0.000 x10(3)/ L [facility] Blood 11/02/2023 12:3 5 AM EDT 11/02/2023 12:43 AM EDT Narrative Resulting Agency Comment Spec In Lab Qamar Gallardo MD HEMATOLOGY ORDERABLE S [facility] [place] [address] * (ABNORMAL) Phosphorus (11/02/2023 12:35 AM EDT) Phosphorus 1.6(L) 2.5 - 4.5 mg/dL [facility] Blood 11/02/2023 12:3 5 AM EDT 11/02/2023 12:43 AM EDT Narrative Resulting Agency Comment Spec In Lab Rosa Cornejo MD CHEMISTRY ORDERABLE S [facility] [place] [address] * Magnesium (11/02/2023 12:35 AM EDT) Pathologist [facility] Magnesium 0.87 0.69 - 1.07 mmol/L [facility] Blood 11/02/2023 12:3 5 AM EDT 11/02/2023 12:43 AM EDT Narrative Resulting Agency Comment Spec In Lab Rosa Cornejo MD CHEMISTRY ORDERABLE S Performing Organization Address City/[facility]/ZIP Co de Phone Number [facility] [place] [address] * Basic Metabolic Panel (non-fasting) (11/02/2023 12:35 AM EDT) Glucose 125 65 - 199 mg/dL [facility] Comment:Diabetes: >=200 mg/d L plus symptoms Blood Urea Nitrogen 9 8 - 18 mg/dL [facility] Creatinine 0.83 0.70 - 1.20 mg/dL [facility] Sodium 136 135 - 145 mmol/L [facility] Potassium 3.6 3.5 - 5.0 mmol/L [facility] Comment: Please note: ??Patients with WBC >100,000 may have falsely elevated Potassium levels. ??For accurate Potassium quantification in these patients send serum separator tube (gold top) for subsequent determinations. ??Contact the Clinical Chemistry Laboratory if there are any questions. Chloride 102 98 - 107 mmol/L [facility] Carbon Dioxide 25 22 - 31 mmol/L [facility] Anion Gap 9 5 - 15 mmol/L [facility] Calcium 9.0 8.5 - 10.5 mg/dL [facility] Est Glomerular Filtration Rate 69 >=60 mL/min/1. 73 m?? [facility] Comment: This patient's estimated GFR [...] Lab Rosa Cornejo MD CHEMISTRY ORDERABLE S [facility] [place] [address] * Blood culture (11/02/2023 12:35 AM EDT) Blood Culture No growth at 5 days. [facility] Blood 11/02/2023 12:3 5 AM EDT 11/02/2023 1:55 AM EDT Comment:#2 site ukn Narrative Resulting Agency Comment Spec In Lab Rosa Hugo MD MICROBIOLOGY - BLO OD ORDERABLES [facility] [place] [address] * Blood culture (11/02/2023 12:15 AM EDT) Blood Culture No growth at 5 days. [facility] Blood 11/02/2023 12:1 5 AM EDT 11/02/2023 1:54 AM EDT Comment:#1site unk Narrative Resulting Agency Comment Spec In Lab Rosa Hugo MD MICROBIOLOGY - BLO OD ORDERABLES Performing Organization Address City/[facility]/ZIP Co de Phone Number [facility] [place] [address] * EKG 12 Lead (11/01/2023 10:10 PM EDT) Ventricular rate 139 BPM MUSE SYSTEM Atrial Rate 139 BPM MUSE SYSTEM P-R Interval 168 ms MUSE SYSTEM QRS Duration 84 ms MUSE SYSTEM Q-T Interval 286 ms MUSE SYSTEM QTC Calculated (Bezet) 435 ms MUSE SYSTEM Calculated R Chester -59 degrees MUSE SYSTEM Calculated T Chester -27 degrees MUSE SYSTEM INTERPRETATION Mid-RP tachycardia, consider sinus tachycardia or SVT Left axis deviation Moderate voltage criteria for LVH, may be normal variant ( R in aVL , [employer] product ) Inferior infarct (cited on or before 01-NOV-2023) Anterolateral infarct (cited on or before 01-NOV-2023) Abnormal ECG When compared with ECG of 01-NOV-2023 15:22, Vent. rate Although rate has increased Serial changes of Anterior infarct Present I personally reviewed the tracing and edited the fellows interpretation Confirmed by fellow MD Andrés, Enriqueta ([id number]) on 11/04/2023 7:57:50 AM Confirmed by MD Gerardo, Shameka ([id number]) on 11/04/2023 4:32:03 PM MUSE SYSTEM 11/01/2023 10:1 0 PM EDT 11/04/2023 4:32 PM EDT Rosa Cornejo MD ECG ORDERABLES Performing Organization Address City/[facility]/ZIP Co de Phone Number MUSE SYSTEM * (ABNORMAL) Hemogram (11/01/2023 10:06 PM EDT) White Blood Cell 10.4(H) 4.0 - 9.5 x10(3)/ L [facility] Red Blood Cell 4.11 4.00 - 5.21 x10(6)/ L [facility] Hemoglobin 14.0 11.7 - 15.5 g/dL [facility] Hematocrit 41.1 35.7 - 45.8 % [facility] Mean Cell Volume 100.0(H) 82.6 - 94.4 fL [facility] Mean Cell Hemoglobin 34.1(H) 27.1 - 32.0 pg [facility] Mean Cell Hemoglobin Concentration 34.1 31.7 - 35.0 g/dL [facility] Platelet 197 145 - 357 x10(3)/[facility] LABORATORY RDW Standard Deviation 54.0(H) 37.0 - 46.0 fL [facility] RDW coefficient of variation 14.6(H) 11.5 - 14.1 % [facility] Mean Platelet Volume 11.2 7.6 - 12.9 fL [facility] NRBC% auto 0.0 % [facility] NRBC Absolute 0.000 0.000 - 0.000 x10(3)/[facility] Blood 11/01/2023 10:0 6 PM EDT 11/01/2023 10:22 PM EDT Narrative Resulting Agency Comment Spec In Lab Rosa Hugo MD HEMATOLOGY ORDERAB LES [facility] [place] [address] * POCT Glucose (11/01/2023 5:59 PM EDT) Glucose, POC 104 65 - 199 mg/dL [facility] Comment: Supplemental ranges: <140 mg/dL before meals <180 mg/dL all other times of the day Blood 11/01/2023 5:59 PM EDT 11/01/2023 5:59 PM EDT Rosa Hugo MD POINT OF CARE TEST ORDERABLES [facility] [place] [address] * POCT Glucose (11/01/2023 5:35 PM EDT) Glucose, POC 85 65 - 199 mg/dL [facility] Comment: Supplemental ranges: <140 mg/dL before meals <180 mg/dL all other times of the day Blood 11/01/2023 5:35 PM EDT 11/01/2023 5:35 PM EDT Rosa Hugo MD POINT OF CARE TEST ORDERABLES Performing Organization Address City/[facility] Co de Phone Number [facility] [place] [address] * EKG 12 Lead (11/01/2023 3:22 PM EDT) Ventricular rate 59 BPM MUSE SYSTEM Atrial Rate 59 BPM MUSE SYSTEM P-R Interval 220 ms MUSE SYSTEM QRS Duration 94 ms MUSE SYSTEM Q-T Interval 428 ms MUSE SYSTEM QTC Calculated (Bezet) 423 ms MUSE SYSTEM Calculated P Chester 76 degrees MUSE SYSTEM Calculated R Chester -50 degrees MUSE SYSTEM Calculated T Chester -59 degrees MUSE SYSTEM INTERPRETATION Sinus bradycardia [...] Modality Other Narrative 11/02/2023 4:57 PM EDT ?[facility] ? Cardiac Catheterization/Intervention Report ? Patient Name: Joleen, Adin Catherine. ? Procedure Date: 11/01/2023 ? A #: [id number] ? Primary Physician: Rosa Dewey I ? Case #: [id number] ? File Name: [id number] ? Catheterization Order Number: [id number] ? [facility] ? Final Report [place], [place] ? Patient Name: ? Adin Townsendjosue ?ID#: ?[id number] ? : ?1940 ? Procedure Date: ? [...] procedure was Urgent. The indication for ?the microbiology lab analyst visit is ACS greater than 24 hrs. [...] ??A premounted ? 3.50 x 15 mm [employer] (RADHA) was deployed with a maximum ? [...] ? A premounted 3.50 x 15 mm [employer] (RADHA) was deployed ? with a maximum [...] dose administered prior to arrival in the microbiology lab analyst. ?Recommended anti-platelet/anti-thrombotic regimen: ?Continue aspirin 81 mg daily for indefinitely. ?Continue clopidogrel 75 mg daily for 12 months then stop. ?These recommendations are made at the time of the intervention. Patient ?and provider preferences or a changing clinical situation may require ?modification of this regimen. Consult [facility] Interventional Cardiology for ?questions. ?The 1 year [...] Note Otto, Rosa I, MD - 12/12/2023 [facility] Cardiac Catheterization/Intervention Report Patient Name: Adin Santos Procedure Date: 11/01/2023 A #: [id number] Primary Physician: Rosa Dewey I Case #: [id number] File Name: [id number] Catheterization Order Number: [id number] [facility] FinalReport [place], [place] Patient Name: Adin Santos ID#:[id number] :1940 Procedure Date: November 01, 2023 Case [...] diagnostic procedure was Urgent. The indicationfor the microbiology lab analyst visit is ACS greater than 24 hrs. [...] 14 atmospheres. Apremounted 3.50 x 15 mm [employer] (RADHA) was deployed with amaximum inflation pressure [...] The lesion was predilated with a 3.00mm [id number] MM balloon with a maximum inflation pressure of 14atmospheres. A premounted 3.50 x 15 mm [employer] (RADHA) wasdeployed with a maximum inflation pressure [...] dose administered prior to arrival in the microbiology lab analyst. Recommended anti-platelet/anti-thrombotic regimen: Continue aspirin 81 mg daily for indefinitely. Continue clopidogrel 75 mg daily for 12 months then stop. These recommendations are made at the time of the intervention.Patient and provider preferences or a changing clinical situation mayrequire modification of this regimen. Consult [facility] Interventional Cardiologyfor questions. The 1 year bleeding [...] Rosa Dewey M.D. Electronically Signed by: Rosa eDwey M.D. Report Finalized: 11/02/2023 16:51 Report Last Ammended: 12/12/2023 10:28 Rosa Cornejo MD CARDIAC CATH ORDERA BLES * POCT Glucose (11/01/2023 7:06 AM EDT) [facility] Glucose, POC 93 65 - 199 mg/dL [facility] Comment: Supplemental ranges: <140 mg/dL before meals <180 mg/dL all other times of the day Blood 11/01/2023 7:06 AM EDT 11/01/2023 7:06 AM EDT Jean Laboy MD POINT OF CARE TEST O RDERABLES [facility] [place] [address] * (ABNORMAL) Differential, Automated (11/01/2023 3:09 AM EDT) [facility] Neutrophil % 63.9 % [facility] Neutrophil Absolute 5.54 1.70 - 6.10 x10(3)/mc L [facility] Lymph % 20.0 % [facility] Lymphocytes Abs 1.7 0.9 - 3.2 x10(3)/mc L [facility] Monocyte % 11.9 % [facility] Monocyte Abs 1.0(H) 0.3 - 0.9 x10(3)/mc L [facility] Eos % 3.2 % [facility] Eosinophils Abs 0.3 0.0 - 0.4 x10(3)/mc L [facility] Basophil % 0.5 % [facility] Baso Absolute 0.0 0.0 - 0.1 x10(3)/mc L [facility] Immature Gran % 0.50 % [facility] Comment: Immature granulocytes(IG's)percentage and absolute count will include metamyelocytes, myelocytes, and promyelocytes. Blood smears from CBCs yielding IG's will be scanned manually for concordance. If this scan disagrees with the automated IG or if promyelocytes are noted, a manual differential will be performed. Immature Gran Absolute 0.04 0.00 - 0.04 x10(3)/ L [facility] Blood 11/01/2023 3:09 AM EDT 11/01/2023 3:29 AM EDT Narrative Resulting Agency Comment Spec In Lab Qamar Gallardo MD HEMATOLOGY ORDERABLE S Performing Organization Address City/State/[facility] Co de Phone Number [facility] [place] [address] * (ABNORMAL) Hemogram (11/01/2023 3:09 AM EDT) White Blood Cell 8.7 4.0 - 9.5 x10(3)/ L [facility] Red Blood Cell 3.72(L) 4.00 - 5.21 x10(6)/mc L [facility] Hemoglobin 12.5 11.7 - 15.5 g/dL [facility] Hematocrit 36.8 35.7 - 45.8 % [facility] Mean Cell Volume 98.9(H) 82.6 - 94.4 fL [facility] Mean Cell Hemoglobin 33.6(H) 27.1 - 32.0 pg [facility] Mean Cell Hemoglobin Concentration 34.0 31.7 - 35.0 g/dL [facility] Platelet 184 145 - 357 x10(3)/ L [facility] RDW Standard Deviation 53.5(H) 37.0 - 46.0 fL [facility] RDW coefficient of variation 14.6(H) 11.5 - 14.1 % [facility] Mean Platelet Volume 11.3 7.6 - 12.9 fL [facility] NRBC% auto 0.0 % [facility] NRBC Absolute 0.000 0.000 - 0.000 x10(3)/mc L [facility] Blood 11/01/2023 3:09 AM EDT 11/01/2023 3:29 AM EDT Narrative Resulting Agency Comment Spec In Lab Qamar Gallardo MD HEMATOLOGY ORDERABLE S Performing Organization Address City/[facility]/ZIP Co de Phone Number [facility] [place] [address] * Phosphorus (11/01/2023 3:09 AM EDT) Phosphorus 2.5 2.5 - 4.5 mg/dL [facility] Blood 11/01/2023 3:09 AM EDT 11/01/2023 3:29 AM EDT Narrative Resulting Agency Comment Spec In Lab Rosa Cornejo MD CHEMISTRY ORDERABLE S Performing Organization Address City/[facility]/ZIP Co de Phone Number [facility] [place] [address] * Magnesium (11/01/2023 3:09 AM EDT) Magnesium 0.82 0.69 - 1.07 mmol/L [facility] Blood 11/01/2023 3:09 AM EDT 11/01/2023 3:29 AM EDT Narrative Resulting Agency Comment Spec In Lab Rosa Cornejo MD CHEMISTRY ORDERABLE S Performing Organization Address City/[facility]/ZIP Co de Phone Number [facility] [place] [address] * (ABNORMAL) Basic Metabolic Panel (non-fasting) (11/01/2023 3:09 AM EDT) Glucose 100 65 - 199 mg/dL [facility] Comment:Diabetes: >=200 mg/d L plus symptoms Blood Urea Nitrogen 14 8 - 18 mg/dL [facility] Creatinine 0.83 0.70 - 1.20 mg/dL [facility] Sodium 137 135 - 145 mmol/L [facility] Potassium 3.4(L) 3.5 - 5.0 mmol/L [facility] Comment: Please note: ??Patients with WBC >100,000 may have falsely elevated Potassium levels. ??For accurate Potassium quantification in these patients send serum separator tube (gold top) for subsequent determinations. ??Contact the Clinical Chemistry Laboratory if there are any questions. Chloride 105 98 - 107 mmol/L [facility] Carbon Dioxide 24 22 - 31 mmol/L [facility] Anion Gap 8 5 - 15 mmol/L [facility] Calcium 8.6 8.5 - 10.5 mg/dL [facility] Est Glomerular Filtration Rate 69 >=60 mL/min/1. 73 m?? [facility] Comment: This patient's estimated GFR [...] Lab Rosa Cornejo MD CHEMISTRY ORDERABLE S [facility] [place] [address] * (ABNORMAL) Troponin (10/31/2023 2:46 PM EDT) Troponin-T, High Sensitivity 544(H) <=14 ng/L [facility] Comment: This patient's troponin T [...] troponin value can be found in the [facility] Test Catalog Troponin - [facility] Test Catalog Reference: [address] Definition of Myocardial Infarction. Journal of the [employer] 2018;72:7740-6016 Blood 10/31/2023 2:46 PM EDT 10/31/2023 2:55 PM EDT Narrative Resulting Agency Comment Spec In Lab Jean Laboy MD CHEMISTRY ORDERABLES [facility] [place] [address] * EKG 12 Lead (10/31/2023 1:07 PM EDT) Ventricular rate 54 BPM MUSE SYSTEM Atrial Rate 54 BPM MUSE SYSTEM P-R Interval 218 ms MUSE SYSTEM QRS Duration 92 ms MUSE SYSTEM Q-T Interval 540 ms MUSE SYSTEM QTC Calculated (Bezet) 512 ms MUSE SYSTEM Calculated P Chester 85 degrees MUSE SYSTEM Calculated R Chester -44 degrees MUSE SYSTEM Calculated T Chester -69 degrees MUSE SYSTEM INTERPRETATION Sinus bradycardia with 1st degree A-V block Left axis deviation Moderate voltage criteria for LVH, may be normal variant ( R in aVL , [employer] product ) T wave abnormality, consider inferolateral [...] EDT) Troponin-T, High Sensitivity 580(H) <=14 ng/L [facility] Comment: This patient's troponin T [...] troponin value can be found in the [facility] Test Catalog Troponin - [facility] Test Catalog Reference: [address] Definition of Myocardial Infarction. Journal of the [employer] 2018;72:5917-7193 Blood 10/31/2023 11:3 7 AM EDT 10/31/2023 11:50 AM EDT Narrative Resulting Agency Comment Spec In Lab Rosa Cornejo MD CHEMISTRY ORDERABLE S Performing Organization Address [facility]/State/ZIP Co de Phone Number [facility] [place] [address] * ECHO COMPLETE (10/31/2023 8:52 AM EDT) Anatomical Region Laterality Modality Cardiac Other 10/31/2023 7:57 AM EDT Narrative 10/31/2023 9:45 AM EDT [address] [place] [address] ? Echocardiogram Report Name: ADIN SANTOS ? Study Date: 10/31/2023 07:57 AMBP: 106/76 mmHg ? Patient Location: [id number] A : 1940 ? Height: 163 cm ? Account: [id number] Age: 83 yrs ? Weight: 76 kg Gender: Female ?BSA: 1.8 m2 Ordering Physician: ROSA DEWEY Referring Physician: OMAIRA GIRON Performed By: HAFSA Carmichael Reason For Study: STEMI Interpreting Fellow: Raymond Warren. Exam Location: [facility]. Interpretation Summary -The left ventricle [...] is no prior echocardiogram for comparison. Procedure Complete-07477. Satisfactory quality. There is sinus bradycardia. Left [...] Note Edgard Wang MD - 10/31/2023 [address] [place] [address] Echocardiogram Report Name: ADIN SANTOS Study Date: 407:57 AMBP: 106/76 mmHg Patient Location: [id number] A : 1940 Height: 163 cm Account: [id number] Age: 83 yrs Weight: 76 kg Gender: Female BSA: 1.8 m2 Ordering Physician: ROSA DEWEY Referring Physician: OMAIRA GIRON Performed By: HAFSA Carmichael Reason For Study: STEMI Interpreting Fellow: Raymond Warren. Exam Location: [facility]. Interpretation Summary -The left ventricle is of normal size. There is moderately increasedthickness of the basal septum with no obstruction to LV outflow. The left ventricularsystolic function is normal with an ejection fraction of 64% by Plye's biplane.There is hypokinesis of the basal inferior wall segment. -The right ventricle is of normal size and systolic function. Pulmonaryartery hypertension could not be assessed due to inadequate tricuspidregurgitation jet. -Mild left atrial dilation. -There is mild aortic regurgitation. 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 -There is no prior echocardiogram for comparison. Procedure Complete-17360. Satisfactory quality. There is sinus bradycardia. Left [...] EDT) Troponin-T, High Sensitivity 571(H) <=14 ng/L [facility] Comment: This patient's troponin T [...] troponin value can be found in the [facility] Test Catalog Troponin - [facility] Test Catalog Reference: Fourth [address] Definition of Myocardial Infarction. Journal of the [employer] 2018;72:3478-8326 Blood 10/31/2023 8:51 AM EDT 10/31/2023 9:12 AM EDT Narrative Resulting Agency Comment Spec In Lab Rosa Cornejo MD CHEMISTRY ORDERABLE S [facility] [place] [address] * CARDIAC CATHETERIZATION (10/31/2023 8:10 AM EDT) Anatomical Region Laterality Modality Other Narrative 11/07/2023 9:42 AM EDT ?[facility] ? Cardiac Catheterization/Intervention Report ? Patient Name: Adin Santos. ? Procedure Date: 10/30/2023 ? A #: [id number] ? Primary Physician: Rosa Dewey I ? Case #: [id number] ? File Name: [id number] ? Catheterization Order Number: [id number] ? [facility] ? Final Report [place], [place] ? Patient Name: ? Adin M. Goguen ?ID#: ?[id number] ? : ?1940 ? Procedure Date: ? [...] to Procedure: ? Aspirin, Angiotensin II Receptor Krsity, Beta Kristy and Statin. ? Indications for Diagnostic Cath: ?The priority of the diagnostic procedure was Emergent. The indication for ?the microbiology lab analyst visit is ACS less than or equal [...] A premounted 4.00 x 38 mm [employer] (RADHA) was deployed ? with a maximum [...] dose administered prior to arrival in the microbiology lab analyst. ?Recommended anti-platelet/anti-thrombotic regimen: ?Continue aspirin 81 mg daily for 12 months then stop. ?Continue clopidogrel 75 mg daily for indefinitely. ?These recommendations are made at the time of the intervention. Patient ?and provider preferences or a changing clinical situation may require ?modification of this regimen. Consult [facility] Interventional Cardiology for ?questions. ? Conclusions: ?* [...] Procedure Note Rosa Dewey MD - 12/05/2023 [facility] Cardiac Catheterization/Intervention Report Patient Name: Adin Santos Procedure Date: 10/30/2023 A #: [id number] Primary Physician: Rosa Dewey I Case #: [id number] File Name: [id number] Catheterization Order Number: [id number] [facility] FinalReport [place], [place] Patient Name: Adin CatherineYasir Edvinree ID#:[id number] :1940 Procedure Date: October 30, 2023 Case #: [id number] Room: 5 Case Physician: Rosa Dewey M.D. [...] was designated as ASA Class III. The [facility] clinical frailtyscale is 5: Mildly Frail. Diagnostic Tests: Electrocardiography: EKG was assessed by ECG. EKG was Abnormal. EKG showed STDeviation >= 0.5 mm, other abnormality and dynamic EKG changes. Medications Prior to Procedure: Aspirin, Angiotensin II Receptor Kristy, Beta Kristy andStatin. Indications for Diagnostic Cath: The priority of the diagnostic procedure was Emergent. Theindication for the microbiology lab analyst visit is ACS less than or equal [...] The priority for the procedure was Emergent.The [facility] indication for the procedure was STEMI-Immediate PCI [...] A premounted 4.00 x 38 mm [employer] (RADHA) wasdeployed with a maximum inflation pressure [...] dose administered prior to arrival in the microbiology lab analyst. Recommended anti-platelet/anti-thrombotic regimen: Continue aspirin 81 mg daily for 12 months then stop. Continue clopidogrel 75 mg daily for indefinitely. These recommendations are made at the time of the intervention.Patient and provider preferences or a changing clinical situation mayrequire modification of this regimen. Consult [facility] Interventional Cardiologyfor questions. Conclusions: * Two vessel [...] * (ABNORMAL) Troponin (10/31/2023 4:21 AM EDT) [facility] Troponin-T, High Sensitivity 457(H) <=14 ng/L [facility] Comment: This patient's troponin T [...] troponin value can be found in the [facility] Test Catalog Troponin - [facility] Test Catalog Reference: Fourth [address] Definition of Myocardial Infarction. Journal of the [employer] 2018;72:7019-5459 Blood 10/31/2023 4:21 AM EDT 10/31/2023 4:30 AM EDT Narrative Resulting Agency Comment Spec In Lab Rosa Cornejo MD CHEMISTRY ORDERABLE S [facility] [place] [address] * (ABNORMAL) Differential, Automated (10/31/2023 3:05 AM EDT) Neutrophil % 71.7 % [facility] Neutrophil Absolute 8.21(H) 1.70 - 6.10 x10(3)/mc L [facility] Lymph % 16.9 % [facility] Lymphocytes Abs 1.9 0.9 - 3.2 x10(3)/mc L [facility] Monocyte % 9.4 % [facility] Monocyte Abs 1.1(H) 0.3 - 0.9 x10(3)/mc L [facility] Eos % 1.3 % [facility] Eosinophils Abs 0.2 0.0 - 0.4 x10(3)/mc L [facility] Basophil % 0.4 % [facility] Baso Absolute 0.0 0.0 - 0.1 x10(3)/mc L [facility] Immature Gran % 0.30 % [facility] Comment: Immature granulocytes(IG's)percentage and absolute count will include metamyelocytes, myelocytes, and promyelocytes. Blood smears from CBCs yielding IG's will be scanned manually for concordance. If this scan disagrees with the automated IG or if promyelocytes are noted, a manual differential will be performed. Immature Gran Absolute 0.04 0.00 - 0.04 x10(3)/mc L [facility] Blood 10/31/2023 3:05 AM EDT 10/31/2023 3:13 AM EDT Narrative Resulting Agency Comment Spec In Lab Qamar Gallardo MD HEMATOLOGY ORDERABLE S [facility] [place] [address] * (ABNORMAL) Hemogram (10/31/2023 3:05 AM EDT) White Blood Cell 11.5(H) 4.0 - 9.5 x10(3)/ L [facility] Red Blood Cell 3.75(L) 4.00 - 5.21 x10(6)/[facility] Hemoglobin 12.6 11.7 - 15.5 g/dL [facility] Hematocrit 37.1 35.7 - 45.8 % [facility] Mean Cell Volume 98.9(H) 82.6 - 94.4 fL [facility] Mean Cell Hemoglobin 33.6(H) 27.1 - 32.0 pg [facility] Mean Cell Hemoglobin Concentration 34.0 31.7 - 35.0 g/dL [facility] Platelet 206 145 - 357 x10(3)/ L [facility] RDW Standard Deviation 53.4(H) 37.0 - 46.0 [facility] RDW coefficient of variation 14.6(H) 11.5 - 14.1 % [facility] Mean Platelet Volume 11.1 7.6 - 12.9 [facility]ATORY NRBC% auto 0.0 % [facility] NRBC Absolute 0.000 0.000 - 0.000 x10(3)/ L [facility] Blood 10/31/2023 3:05 AM EDT 10/31/2023 3:13 AM EDT Narrative Resulting Agency Comment Spec In Lab Qamar Gallardo MD HEMATOLOGY ORDERABLE S Performing Organization Address [facility] Co de Phone Number [facility] [place] [address] * (ABNORMAL) APTT (10/31/2023 3:05 AM EDT) Partial Thromboplastin Time 67(H) 25 - 37 sec [facility] Comment: The PTT is NOT appropriate for heparin monitoring. Use the Anti-Xa level for heparin monitoring (HEP UFH) or LMWH monitoring (HEP LMW). A PTT less than 37 seconds generally indicates adequate hemostasis. Blood 10/31/2023 3:05 AM EDT 10/31/2023 3:13 AM EDT Narrative Resulting Agency Comment Spec In Lab Rosa Cornejo MD HEMATOLOGY ORDERABL ES Performing Organization Address [facility] de Phone Number [facility] [place] [address] * (ABNORMAL) Prothrombin Time (10/31/2023 3:05 AM EDT) Prothrombin Time 12.6(H) 9.4 - 12.5 sec [facility] International Normalization Ratio 1.1 [facility] Comment: An INR <2.0 indicates [...] MD HEMATOLOGY ORDERABL ES Performing Organization Address [facility] Co de Phone Number [place] [address] * (ABNORMAL) Differential, Automated (10/31/2023 1:37 AM EDT) Pathologist [facility] Neutrophil % 71.1 % [facility] Neutrophil Absolute 7.53(H) 1.70 - 6.10 x10(3)/ L [facility] Lymph % 18.0 % [facility] Lymphocytes Abs 1.9 0.9 - 3.2 x10(3)/ L [facility] Monocyte % 8.7 % [facility] Monocyte Abs 0.9 0.3 - 0.9 x10(3)/[facility] Eos % 1.6 % [facility] Eosinophils Abs 0.2 0.0 - 0.4 x10(3)/[facility] Basophil % 0.4 % [facility] Baso Absolute 0.0 0.0 - 0.1 x10(3)/[facility] Immature Gran % 0.20 % [facility] Comment: Immature granulocytes(IG's)percentage and absolute count will include metamyelocytes, myelocytes, and promyelocytes. Blood smears from CBCs yielding IG's will be scanned manually for concordance. If this scan disagrees with the automated IG or if promyelocytes are noted, a manual differential will be performed. Immature Gran Absolute 0.02 0.00 - 0.04 x10(3)/ L [facility] Blood 10/31/2023 1:37 AM EDT 10/31/2023 1:46 AM EDT Narrative Resulting Agency Comment Spec In Lab Qamar Gallardo MD HEMATOLOGY ORDERABLE S [facility] [place] [address] * (ABNORMAL) Hemogram (10/31/2023 1:37 AM EDT) Pathologist [facility] White Blood Cell 10.6(H) 4.0 - 9.5 x10(3)/mc L [facility] Red Blood Cell 3.78(L) 4.00 - 5.21 x10(6)/mc L [facility] Hemoglobin 13.0 11.7 - 15.5 g/dL [facility] Hematocrit 37.9 35.7 - 45.8 % [facility] Mean Cell Volume 100.3(H) 82.6 - 94.4 fL [facility] Mean Cell Hemoglobin 34.4(H) 27.1 - 32.0 pg [facility] Mean Cell Hemoglobin Concentration 34.3 31.7 - 35.0 g/dL [facility] Platelet 204 145 - 357 x10(3)/ L [facility] RDW Standard Deviation 54.3(H) 37.0 - 46.0 fL [facility] RDW coefficient of variation 14.6(H) 11.5 - 14.1 % [facility] Mean Platelet Volume 11.1 7.6 - 12.9 fL [facility] NRBC% auto 0.0 % [facility] NRBC Absolute 0.000 0.000 - 0.000 x10(3)/ L [facility] Blood 10/31/2023 1:37 AM EDT 10/31/2023 1:46 AM EDT Narrative Resulting Agency Comment Spec In Lab Qamar Gallardo MD HEMATOLOGY ORDERABLE S [facility] [place] [address] * Phosphorus (10/31/2023 1:37 AM EDT) Phosphorus 3.2 2.5 - 4.5 mg/dL [facility] Blood 10/31/2023 1:37 AM EDT 10/31/2023 1:46 AM EDT Narrative Resulting Agency Comment Spec In Lab Rosa Cornejo MD CHEMISTRY ORDERABLE S [facility] [place] [address] * Magnesium (10/31/2023 1:37 AM EDT) Pathologist [facility] Magnesium 0.83 0.69 - 1.07 mmol/L [facility] Blood 10/31/2023 1:37 AM EDT 10/31/2023 1:46 AM EDT Narrative Resulting Agency Comment Spec In Lab Rosa Cornejo MD CHEMISTRY ORDERABLE S Performing Organization Address [facility] Co de Phone Number [facility] [place] [address] * Basic Metabolic Panel (non-fasting) (10/31/2023 1:37 AM EDT) Pathologist [facility] Glucose 114 65 - 199 mg/dL [facility] Comment:Diabetes: >=200 mg/d L plus symptoms Blood Urea Nitrogen 13 8 - 18 mg/dL [facility] Creatinine 0.81 0.70 - 1.20 mg/dL [facility] Sodium 140 135 - 145 mmol/L [facility] Potassium 3.9 3.5 - 5.0 mmol/L [facility] Comment: Please note: ??Patients with WBC >100,000 may have falsely elevated Potassium levels. ??For accurate Potassium quantification in these patients send serum separator tube (gold top) for subsequent determinations. ??Contact the Clinical Chemistry Laboratory if there are any questions. Chloride 107 98 - 107 mmol/L [facility] Carbon Dioxide 25 22 - 31 mmol/L [facility] Anion Gap 8 5 - 15 mmol/L [facility] Calcium 8.6 8.5 - 10.5 mg/dL [facility] Est Glomerular Filtration Rate 72 >=60 mL/min/1. 73 m?? [facility] Comment: This patient's estimated GFR [...] Lab Rosa Cornejo MD CHEMISTRY ORDERABLE S [facility] [place] [address] * (ABNORMAL) Troponin (10/31/2023 1:37 AM EDT) Troponin-T, High Sensitivity 329(H) <=14 ng/L [facility] Comment: This patient's troponin T [...] troponin value can be found in the [facility] Test Catalog Troponin - [facility] Test Catalog Reference: Fourth [address] Definition of Myocardial Infarction. Journal of the [employer] 2018;72:7382-1211 Blood 10/31/2023 1:37 AM EDT 10/31/2023 1:46 AM EDT Narrative Resulting Agency Comment Spec In Lab Rosa Cornejo MD CHEMISTRY ORDERABLE S Performing Organization Address [facility]/ZIP Co de Phone Number [facility] [place] [address] * EKG 12 Lead (10/31/2023 1:20 AM EDT) Ventricular rate 52 BPM MUSE SYSTEM Atrial Rate 52 BPM MUSE SYSTEM P-R Interval 224 ms MUSE SYSTEM QRS Duration 108 ms MUSE SYSTEM Q-T Interval 544 ms MUSE SYSTEM QTC Calculated (Bezet) 505 ms MUSE SYSTEM Calculated P [place] 90 degrees MUSE SYSTEM Calculated R [place] -57 degrees MUSE SYSTEM Calculated T [place] -63 degrees MUSE SYSTEM INTERPRETATION Sinus bradycardia with 1st degree A-V block Pulmonary disease pattern Left anterior fascicular block Moderate voltage criteria for LVH, may be normal variant ( R in aVL , [employer] product ) T wave abnormality, consider inferior ischemia T wave abnormality, consider anterolateral ischemia Prolonged QT Abnormal ECG When compared with ECG of 30-OCT-2023 22:40, No significant change was found Confirmed by Charles COFFMAN, Butch ([id number]) on 11/01/2023 8:58:03 PM MUSE SYSTEM 10/31/2023 1:20 AM EDT 11/01/2023 8:58 PM EDT Rosa Cornejo MD ECG ORDERABLES Performing Organization Address City/[facility]/ZIP Co de Phone Number MUSE SYSTEM * EKG 12 Lead (10/30/2023 10:40 PM EDT) Ventricular rate 55 BPM MUSE SYSTEM Atrial Rate 55 BPM MUSE SYSTEM P-R Interval 232 ms MUSE SYSTEM QRS Duration 102 ms MUSE SYSTEM Q-T Interval 520 ms MUSE SYSTEM QTC Calculated (Bezet) 497 ms MUSE SYSTEM Calculated P [place] 75 degrees MUSE SYSTEM Calculated R [place] -53 degrees MUSE SYSTEM Calculated T [place] -57 degrees MUSE SYSTEM INTERPRETATION Sinus bradycardia [...] Chest One View (10/30/2023 10:10 PM EDT) [employer] WORKSTATION ID [id number] DH RAD Anatomical Region Laterality Modality Chest [...] and low lung volumes. Findings similar to lung gun operator radiograph from CT 10/30/2023. Thank you for letting us participate in the care of this patient. ??If you are a health care provider and have any questions regarding this report, please contact the number below. ??For patients who have questions please contact the health patient care representative that requested your imaging first. ? Narrative [...] and low lung volumes. Findings similar to lung gun operator radiograph from CT 10/30/2023. Thank you for letting us participate in the care of this patient. If youare a health care provider and have any questions regarding this report,please contact the number below. For patients who have questions please contactthe health patient care representative that requested your imaging first. Rosa Cornejo MD IMG DX ORDERABLES * Green Tube HOLD (10/30/2023 10:05 PM EDT) Pathologist [facility] Green Hold Sample in lab. [facility] Blood Venous Draw / Unknown 10/30/2023 10:05 PM EDT 10/30/2023 10:13 PM EDT Qamar Gallardo MD CHEMISTRY ORDERABLES [facility] [place] [address] * (ABNORMAL) Differential, Automated (10/30/2023 10:05 PM EDT) Pathologist [facility] Neutrophil % 76.6 % [facility] Neutrophil Absolute 6.94(H) 1.70 - 6.10 x10(3)/mc L [facility] Lymph % 15.4 % [facility] Lymphocytes Abs 1.4 0.9 - 3.2 x10(3)/mc L [facility] Monocyte % 6.1 % [facility] Monocyte Abs 0.6 0.3 - 0.9 x10(3)/mc L [facility] Eos % 1.1 % [facility] Eosinophils Abs 0.1 0.0 - 0.4 x10(3)/mc L [facility] Basophil % 0.6 % [facility] Baso Absolute 0.0 0.0 - 0.1 x10(3)/mc L [facility] Immature Gran % 0.20 % [facility] Comment: Immature granulocytes(IG's)percentage and absolute count will include metamyelocytes, myelocytes, and promyelocytes. Blood smears from CBCs yielding IG's will be scanned manually for concordance. If this scan disagrees with the automated IG or if promyelocytes are noted, a manual differential will be performed. Immature Gran Absolute 0.02 0.00 - 0.04 x10(3)/mc L [facility] Blood 10/30/2023 10:0 5 PM EDT 10/30/2023 10:12 PM EDT Narrative Resulting Agency Comment Spec In Lab Qamar Gallardo MD HEMATOLOGY ORDERABLE S [facility] [place] [address] * (ABNORMAL) Hemogram (10/30/2023 10:05 PM EDT) White Blood Cell 9.0 4.0 - 9.5 x10(3)/mc L [facility] Red Blood Cell 3.96(L) 4.00 - 5.21 x10(6)/mc L [facility] Hemoglobin 13.3 11.7 - 15.5 g/dL [facility] Hematocrit 39.1 35.7 - 45.8 % [facility] Mean Cell Volume 98.7(H) 82.6 - 94.4 fL [facility] Mean Cell Hemoglobin 33.6(H) 27.1 - 32.0 pg [facility] Mean Cell Hemoglobin Concentration 34.0 31.7 - 35.0 g/dL [facility] Platelet 211 145 - 357 x10(3)/mc L [facility] RDW Standard Deviation 53.6(H) 37.0 - 46.0 fL [facility] RDW coefficient of variation 14.6(H) 11.5 - 14.1 % [facility] Mean Platelet Volume 11.1 7.6 - 12.9 fL [facility] NRBC% auto 0.0 % [facility] NRBC Absolute 0.000 0.000 - 0.000 x10(3)/mc L [facility] Blood 10/30/2023 10:0 5 PM EDT 10/30/2023 10:12 PM EDT Narrative Resulting Agency Comment Spec In Lab Qamar Gallardo MD HEMATOLOGY ORDERABLE S Performing Organization Address [facility] Co de Phone Number [facility] [place] [address] * Hemoglobin A1c (10/30/2023 10:05 PM EDT) Hemoglobin A1c 5.5 4.3 - 5.6 % [facility] Comment: Reference Range: 4.3 - [...] Mellitus, Diabetes Care 2013; 36: Suppl. 1, S67-27 Estimated Average Glucose See note mg/dL [facility] Comment: Estimated Average Glucose not appropriate for patients over 70 years of age. Blood 10/30/2023 10:0 5 PM EDT 10/30/2023 10:12 PM EDT Narrative Resulting Agency Comment Spec In Lab Rosa Cornejo MD CHEMISTRY ORDERABLE S Performing Organization Address [facility] Co de Phone Number [facility] [place] [address] * Lipid Panel (Reflex Direct LDL) (10/30/2023 10:05 PM EDT) Cholesterol, Total 218 mg/dL [facility] Comment: Desirable: ? <200 mg/dL Borderline High: 200-239 mg/dL Higher: ?>sy=920 mg/dL Triglyceride 46 mg/dL [facility] Comment: Normal: ?<150 mg/dL Borderline High: 150-199 mg/dL High: ?200-499 mg/dL Very High: ? >gq=547 mg/dL HDL Cholesterol 64 mg/dL [facility] Comment: Females: High Risk: <50 mg/dL Males: High Risk: <40 mg/dL LDL Cholesterol 145 mg/dL [facility] Comment: Desirable: ? <100 mg/dL Above Desirable: 100-129 mg/dL Borderline High: 130-159 mg/dL High: ?160-189 mg/dL Very High: ? >jy=988 mg/dL Lipid Interpretation See Note [facility] Comment: It is important to [...] ACC/AHA Guidelines (most recently Feliciano et al. [facility] 03/23/22): For individuals with atherosclerotic cardiovascular disease (ASCVD)or LDL >zi=082 mg/dL, use a high-intensity statin (40-80 mg [...] MD CHEMISTRY ORDERABLE S Performing Organization Address [facility] Co de Phone Number [facility] [place] [address] * TSH [place] (10/30/2023 10:05 PM EDT) Thyroid Stimulating Hormone 3.35 0.27 - 4.20 mcIU/mL [facility] Comment: Reference Interval (mcIU/mL): Females: ??First Trimester: 0.23-3.88 ??Second Trimester: 0.22-3.90 ??Third Trimester: 0.44-4.66 Blood 10/30/2023 10:0 5 PM EDT 10/30/2023 10:12 PM EDT Narrative Resulting Agency Comment Spec In Lab Rosa Cornejo MD CHEMISTRY ORDERABLE S Performing Organization Address [facility] Co de Phone Number [facility] [place] [address] * pro-Brain Natriuretic Peptide (10/30/2023 10:05 PM EDT) NT-proBNP 375 <=449 pg/mL [facility] Blood 10/30/2023 10:0 5 PM EDT 10/30/2023 10:12 PM EDT Narrative Resulting Agency Comment Spec In Lab Rosa Cornejo MD CHEMISTRY ORDERABLE S [facility] [place] [address] * (ABNORMAL) Comprehensive metabolic panel (non-fasting) (10/30/2023 10:05 PM EDT) Glucose 121 65 - 199 mg/dL [facility] Comment:Diabetes: >=200 mg/d L plus symptoms Blood Urea Nitrogen 14 8 - 18 mg/dL [facility] Creatinine 0.85 0.70 - 1.20 mg/dL [facility] Sodium 142 135 - 145 mmol/L [facility] Potassium 3.9 3.5 - 5.0 mmol/L [facility] Comment: Please note: ??Patients with WBC >100,000 may have falsely elevated Potassium levels. ??For accurate Potassium quantification in these patients send serum separator tube (gold top) for subsequent determinations. ??Contact the Clinical Chemistry Laboratory if there are any questions. Chloride 105 98 - 107 mmol/L [facility] Carbon Dioxide 27 22 - 31 mmol/L [facility] Anion Gap 10 5 - 15 mmol/L [facility] Calcium 8.8 8.5 - 10.5 mg/dL [facility] Protein, Total 6.5 6.1 - 8.0 g/dL [facility] Albumin 4.2 3.2 - 5.2 g/dL [facility] Aspartate Aminotransferase 36(H) 0 - 30 unit/L [facility] Alanine Aminotransferase 17 0 - 30 unit/L [facility] Alkaline Phosphatase 54 35 - 105 unit/L [facility] Bilirubin, Total 0.5 0.2 - 1.3 mg/dL [facility] Est Glomerular Filtration Rate 68 >=60 mL/min/1. 73 m?? [facility] Comment: This patient's estimated GFR [...] MD CHEMISTRY ORDERABLE S Performing Organization Address City/[facility]/ZIP Co de Phone Number [facility] [place] [place] [address] * Phosphorus (10/30/2023 10:05 PM EDT) Phosphorus 3.3 2.5 - 4.5 mg/dL [facility] Blood 10/30/2023 10:0 5 PM EDT 10/30/2023 10:12 PM EDT Narrative Resulting Agency Comment Spec In Lab Rosa Cornejo MD CHEMISTRY ORDERABLE S Performing Organization Address City/[facility]/ZIP Co de Phone Number [facility] [place] [address] * Magnesium (10/30/2023 10:05 PM EDT) Magnesium 0.86 0.69 - 1.07 mmol/L [facility] Blood 10/30/2023 10:0 5 PM EDT 10/30/2023 10:12 PM EDT Narrative Resulting Agency Comment Spec In Lab Rosa Cornejo MD CHEMISTRY ORDERABLE S Performing Organization Address City/[facility]/ZIP Co de Phone Number [facility] [place] [address] * (ABNORMAL) Troponin (10/30/2023 10:05 PM EDT) [facility] Troponin-T, High Sensitivity 214(H) <=14 ng/L [facility] Comment: This patient's troponin T [...] troponin value can be found in the [facility] Laboratory Test Catalog Troponin - [facility] Laboratory Test Catalog Reference: Fourth [address] Definition of Myocardial Infarction. Journal of the [place] [employer] 2018;72:5443-6971 Blood 10/30/2023 10:0 5 PM EDT 10/30/2023 10:12 PM EDT Narrative Resulting Agency Comment Spec In Lab Rosa Cornejo MD CHEMISTRY ORDERABLE S [facility] [place] [address] * EKG 12 Lead (10/30/2023 8:21 PM EDT) [facility] Ventricular rate 49 BPM MUSE SYSTEM Atrial Rate 49 BPM MUSE SYSTEM P-R Interval 230 ms MUSE SYSTEM QRS Duration 96 ms MUSE SYSTEM Q-T Interval 526 ms MUSE SYSTEM QTC Calculated (Bezet) 475 ms MUSE SYSTEM Calculated P [place] 98 degrees MUSE SYSTEM Calculated R [place] -48 degrees MUSE SYSTEM Calculated T [place] -51 degrees MUSE SYSTEM INTERPRETATION Sinus bradycardia with 1st degree A-V block Incomplete right bundle branch block Left anterior fascicular block Moderate voltage criteria for LVH, may be normal variant ( R in aVL , [employer] product ) T wave abnormality, consider inferior [...] last 24 to 72 hours., Routine 1333 ([facility] Hold - Provider: Admin Adt - Reason: Transfer to a Procedural area)1548 ([facility] Unhold - Provider: Admin Adt) sodium chloride 0.9 % (flush) (BD PosiFlush Normal Saline 0.9) flush 5-20 mL 5-20 mL, Intravenous, EVERY 1 MIN PRN, Starting on 10/30/23 at 2208, Until Amna 11/03/23 at 1913, flush, Flush pertains to all indwelling lines. Flush per protocol found in the job aid using the link provided on this medication record., Routine 1333 ([facility] Hold - Provider: Admin Adt - Reason: Transfer to a Procedural area)1548 ([facility] Unhold - Provider: Admin Adt) documented in this encounter Additional Health Concerns Infection Onset Date Last Indicated Resolved Time Rule Out Respiratory 11/02/2023 11/02/2023 024 12:22 PM EDT Rule Out COVID-19 11/02/2023 11/02/2023 11/02/2023 12:22 PM EDT documented as of this encounter Care Teams Store Receiving Specialist Relationship Specialty Start Date End Date Rosie Mathews MD [address] [place] [address] PCP - General Family Medicine 11/25/17 11/23/23 documented as of this encounter
--- OUTSIDE RECORDS SUMMARY | 2024-02-03 10:33 | XMS_ITS | Encounter Summary ---
Author Organization [facility] Address [facility] [place] [address] Care Team Providers Care Pediatric Occupational Therapist Name Role Phone Masood Pierson MD Primary Care Provider [phone] Encounter Details Date Type Department Care Team (Latest Contact Info) Description 11/24/2023 Travel Social History Tobacco Use Types Packs/Day Years Used Date Smoking Tobacco: Former Smokeless Tobacco: Never Alcohol Use Standard Drinks/Week Comments Not Currently 0 (1 standard drink = 0.6 oz pur e alcohol) [facility] Utilities Answer Date Recorded In [...] AM EDT Office Visit Cardiology at [address] [address] Izaiah Meyer MD [facility] [place] [place] [address] documented as of this encounter Visit Diagnoses Not on filedocumented in this encounter Care Teams Pediatric Occupational Therapist Relationship Specialty Start Date End Date Masood Pierson MD [address] [place] [address] PCP - General Family Medicine 11/24/23 documented as of this encounter
--- OUTSIDE RECORDS SUMMARY | 2024-02-03 10:33 | XMS_ITS | Encounter Summary ---
Author Organization [facility] Address [facility] [place] [address] Care Team Providers Care Mail Distributor Name Role Phone Masood Pierson MD Primary Care Provider [phone] Encounter Details Date Type Department Care Team (Late st Contact Info) Description 12/16/2023 Telephone Cardiology at [address] [place] [address] Izaiah Meyer MD [facility] [place] [address] Social History Tobacco Use Types Packs/Day Years Used Date Smoking Tobacco: Former Smokeless Tobacco: Never Alcohol Use Standard Drinks/Week Comments Not Currently 0 (1 standard drink = 0.6 oz pur e alcohol) [facility] Utilities Answer Date Recorded In the past 12 months has [employer], gas, oil, or water [employer] threatened to shut off services in your [...] RN - 12/16/2023 11:25 AM EDT Denise, [facility] Cardiac housefellow, called to report that at today's session [...] 11:20 AM EDT Office Visit Cardiology at [address] [place] [address] Izaiah Meyer MD [facility] [place] [address] documented as of this encounter Visit Diagnoses Not on filedocumented in this encounter Care Teams Mail Distributor Relationship Specialty Start Date End Date Masood Pierson MD [address] [place] [address] PCP - General Family Medicine 11/24/23 documented as of this encounter
--- OUTSIDE RECORDS SUMMARY | 2024-02-03 10:33 | XMS_ITS | Encounter Summary ---
Author Organization [facility] Address [facility] [place] [address] Care Team Providers Care Vendor Representatives Name Role Phone Masood Pierson MD Primary Care Provider [phone] Reason for Visit * Reason Comments Establish Care Coronary Artery Disease Encounter Details Date Type Department Care Team (Latest Contact Info) Description 11/24/2023 10:40 AM EDT Office Visit Cardiology at [address] [place] [address] Izaiah Meyer MD [facility] [place] [address] ASCVD (arteriosclerotic cardiovascular disease); Cardiomyopathy, ischemic; Ascending aorta dilatation; Hyperpiesia Social History Tobacco Use Types Packs/Day Years Used Date Smoking Tobacco: Former Smokeless Tobacco: Never Alcohol Use Standard Drinks/Week Comments Not Currently 0 (1 standard drink = 0.6 oz pur e alcohol) [facility] Utilities Answer Date Recorded In the [...] place to sleep or slept in a usp (including now)? No 11/01/2023 DH IPV Inpatient [...] Prox 60 Mid 80 3.5 x 15 [place] 3.5 x 15 Andrea RCA Mid AoCTO. [...] y.o. female. HPI: 83 f [facility]. She has a recent history [...] [facility]hab. [facility] 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
--- OUTSIDE RECORDS SUMMARY | 2024-02-03 10:33 | XMS_ITS | Clinical Summary ---
Author Organization [facility] Address [facility] [place] [address] Care Team Providers Care Automatic Winder Operator Name Role Phone Masood Pierson MD Primary Care Provider [phone] Allergies Active Allergy Reactions Criticality Noted Date [...] Prox 60 Mid 80 3.5 x 15 [place] 3.5 x 15 [place] RCA Mid AoCTO. Collats from Cx 4.0 x 38 [place] NB: RCA initially intervened; Cx 2 days [...] Care Team Description 12/16/2023 Telephone Cardiology at [address] [address] Izaiah Meyer MD 11/24/2023 10:40 AM EDT Office Visit Cardiology at [address] [address] Izaiah Meyer MD ASCVD (arteriosclerotic cardiovascular disease); Cardiomyopathy, ischemic; Ascending aorta dilatation; Hyperpiesia 11/24/2023 Travel 11/18/2023 Telephone Cardiology at [address] [address] Cheryl Guzman MD 11/18/2023 [place] [address] 11/03/2023 Telephone Cardiology at [address] [address] Andressa Machado, dental detail representative; Coronary Artery Disease 10/30/2023 5:11 PM EDT - 11/03/2023 5:13 PM EDT Hospital Encounter Heart and Vascular Unit Level [address] [place] [address] Rosa Menjivar MD Williams, Eric M, MD Bensimhon, Hannah F, MD 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; Tachycardia; Unstable angina Discharge Disposition: Home from Last 3 Months Social History Tobacco Use Types Packs/Day Years Used Date Smoking Tobacco: Former Smokeless Tobacco: Never Alcohol Use Standard Drinks/Week Comments Not Currently 0 (1 standard drink = 0.6 oz pur e alcohol) [facility] Utilities Answer Date Recorded In the past 12 months has [employer] gas, oil, or water [employer] threatened to shut off services in your [...] place to sleep or slept in a nursing home (including now)? No 11/01/2023 DH IPV [...] 11:20 AM EDT Office Visit Cardiology at [address] [place] [address] Izaiah Meyer MD [facility] [address] Health Maintenance Due Date Last Done Comments Pneumoccocal Vaccine: 65+ (1 of 2 - PCV) 1945 Tdap adult 1958 Tetanus vaccine 1958 Zoster vaccine (1 of 2) 1989 Advance Directive 1994 Bone Density Scan 2004 Covid-19 Vaccine (1 - season) 2023 Influenza (Flu) vaccine (1 o f 1 - Influenza standard series) 02/19/2024 Procedures Procedure Name Priority Date/Time Associated Diagnosis Comments EKG 12-LEAD Routine 11/24/2023 11:09 AM EDT ECG SCAN Routine 11/18/2023 4:50 PM EDT DIFFERENTIAL, AUTOMATED Routine 11/03/2023 3:46 AM EDT HEMOGRAM Routine 11/03/2023 3:46 AM EDT PHOSPHORUS Routine 11/03/2023 3:46 AM EDT MAGNESIUM Routine 11/03/2023 3:46 AM EDT BASIC METABOLIC PANEL Routine 11/03/2023 3:46 AM EDT CBC (WITH DIFF) Routine 11/03/2023 3:46 AM EDT from Last 3 Months Results * EKG 12 Lead (11/24/2023 11:09 AM EDT) Ventricular rate 51 BPM MUSE SYSTEM Atrial Rate 51 BPM MUSE SYSTEM P-R Interval 228 ms MUSE SYSTEM QRS Duration 96 ms MUSE SYSTEM Q-T Interval 482 ms MUSE SYSTEM QTC Calculated (Bezet) 444 ms MUSE SYSTEM Calculated P [place] 79 degrees MUSE SYSTEM Calculated R [place] -39 degrees MUSE SYSTEM Calculated T [place] -49 degrees MUSE SYSTEM INTERPRETATION Sinus bradycardia [...] Anterolateral leads Confirmed by MD Meyer Daniel ([id number]) on 12/10/2023 2:50:44 PM MUSE SYSTEM 11/24/2023 11:0 9 AM EDT 12/10/2023 2:50 PM EDT Unknown ECG ORDERABLES MUSE SYSTEM * Scan Doc: ECG (11/18/2023 4:50 PM EDT) Historical Provider MD GUPTA MGR [...] HOSPITAL [facility] Platelet 181 145 - 357 x10(3)/mc L [facility] RDW Standard Deviation 54.7(H) 37.0 - 46.0 fL [facility] RDW coefficient of variation 14.6(H) 11.5 - 14.1 % [facility] Mean Platelet Volume 11.2 7.6 - 12.9 fL [facility] NRBC% auto 0.0 % [facility] NRBC Absolute 0.000 0.000 - 0.000 x10(3)/mc L [facility] Blood 11/03/2023 3:46 AM EDT 11/03/2023 4:11 AM EDT Narrative Resulting Agency Comment Spec In Lab Qamar Gallardo MD HEMATOLOGY ORDERABLE S [facility] [place] [address] * (ABNORMAL) Differential, Automated (11/03/2023 3:46 AM EDT) Neutrophil % 63.3 % [facility] Neutrophil Absolute 5.28 1.70 - 6.10 x10(3)/mc L [facility] Lymph % 15.2 % [facility] Lymphocytes Abs 1.3 0.9 - 3.2 x10(3)/mc L [facility] Monocyte % 16.9 % [facility] Monocyte Abs 1.4(H) 0.3 - 0.9 x10(3)/mc L [facility] Eos % 3.7 % [facility] Eosinophils Abs 0.3 0.0 - 0.4 x10(3)/mc L [facility] Basophil % 0.5 % [facility] Baso Absolute 0.0 0.0 - [...] MD HEMATOLOGY ORDERABLE S [facility] [place] [address] * Phosphorus (11/03/2023 3:46 AM EDT) Phosphorus 3.2 2.5 - 4.5 mg/dL [facility] Comment:result rechecked-KS Blood 11/03/2023 3:46 AM EDT 11/03/2023 4:11 AM EDT Narrative Resulting Agency Comment Spec In Lab Rosa Cornejo MD CHEMISTRY ORDERABLE S Performing Organization Address [facility]/ZIP Co de Phone Number [facility] [place] [address] * Magnesium (11/03/2023 3:46 AM EDT) Magnesium 0.90 0.69 - 1.07 mmol/L [facility] Blood 11/03/2023 3:46 AM EDT 11/03/2023 4:11 AM EDT Narrative Resulting Agency Comment Spec In Lab Rosa Cornejo MD CHEMISTRY ORDERABLE S Performing Organization Address City/[facility]/ZIP Co de Phone Number [facility] [place] [address] * (ABNORMAL) Basic Metabolic Panel (non-fasting) (11/03/2023 [...] MD CHEMISTRY ORDERABLE S [facility] [place] [address] from Last 3 Months Advance Directives * Attempt Cardiopulmonary Resuscitation - Inpatient (Latest Code Status on File) Date Activated Date Inactivated Comments 10/30/2023 9:58 PM 11/03/2023 7:13 PM Question Answer Comments Code Status decision made by: Patient Care Teams Automatic Winder Operator Relationship Specialty Start Date End Date Masood Pierson MD [address] [place] [address] PCP - General Family Medicine 11/24/23
--- OUTSIDE RECORDS SUMMARY | 2024-02-03 10:33 | XMS_ITS | Encounter Summary ---
Author Organization [facility] Address [facility] [place] [address] Care Team Providers Care Business Development Assistant Name Role Phone Rosie Mathews MD Primary Care Provider [phone] Reason for Visit * Reason Onset Date Comments Referral 11/03/2023 Coronary Artery Disease 11/03/2023 Encounter Details Date Type Department Care Team (Late st Contact Info) Description 11/03/2023 Telephone Cardiology at [address] [address] Andressa Machado, fire fighting equipment specialist; Coronary Artery Disease Social History Tobacco Use Types Packs/Day Years Used Date Smoking Tobacco: Former Smokeless Tobacco: Never Alcohol Use Standard Drinks/Week Comments Not Currently 0 (1 standard drink = 0.6 oz pur e alcohol) [facility] Utilities Answer Date Recorded In the past 12 months has e [employer], gas, oil, or water [employer] [place] threatened to shut off services in your [...] place to sleep or slept in a fpc (including now)? No 11/01/2023 IPV Inpatient Questions [...] were not included. Heart and Vascular Clinics [facility] [address] [place] [id number] Lyla was referred to this Cardiology clinic in [place] for post cardiac cath 10/31 for STEMI follow up as part of her discharge plan from [facility] documented in this encounter Plan of Treatment Upcoming Encounters Date Type Department Care Team (Late st Contact Info) Description 03/29/2024 11:20 AM EDT Office Visit Cardiology at [address] [place] [address] Izaiah Meyer MD [facility] [place] [address] documented as of this encounter Visit Diagnoses Not on filedocumented in this encounter Care Teams Business Development Assistant Relationship Specialty Start Date End Date Rosie Mathews MD [address] [place] [address] PCP - General Family Medicine 11/25/17 11/23/23 documented as of this encounter
--- OUTSIDE RECORDS SUMMARY | 2024-02-03 10:33 | XMS_ITS | Encounter Summary ---
Author Organization [facility] Address [facility] [place] [address] Care Team Providers Care Residential Solar Consultant Name Role Phone Rosie Mathews MD Primary Care Provider [phone] Encounter Details Date Type Department Care Team (Late st Contact Info) Description 11/18/2023 Telephone Cardiology at [address] [address] Cheryl Guzman MD [facility] [place] [address] Social History Tobacco Use Types Packs/Day Years Used Date Smoking Tobacco: Former Smokeless Tobacco: Never Alcohol Use Standard Drinks/Week Comments Not Currently 0 (1 standard drink = 0.6 oz pur e alcohol) [facility] Utilities Answer Date Recorded In the past 12 months has e electric, gas, oil, or water [employer] threatened to shut off services in your [...] place to sleep or slept in a assisted (including now)? No 11/01/2023 IPV Inpatient Questions [...] Provider: Radu Giron MD Patient Location: ED, [facility] Past Medical History: HTN HLD NSTEMI ([facility] 11/02, status-post revasc) Presenting Symptoms per OSH: Lyla Goodrich is a 83 y.o. woman who presents to [facility] with an episode of chest pain. Recent admission to [facility] with NSTEMI status-post PCI to the prox-RCA [...] today's values. RCA was described as a ADJUNCT PSYCHOLOGY PROFESSOR. Recommend admission for observation to assess for [...] 11:20 AM EDT Office Visit Cardiology at [address] [phone] Izaiah Meyer MD [facility] [place] [address] documented as of this encounter Visit Diagnoses Not on filedocumented in this encounter Care Teams Residential Solar Consultant Relationship Specialty Start Date End Date Rosie Mathews MD [address] [place] [address] PCP - General Family Medicine 11/25/17 11/23/23 documented as of this encounter
--- OUTSIDE RECORDS SUMMARY | 2024-02-03 10:33 | XMS_ITS | Encounter Summary ---
Author Organization [facility] Address [facility] [place] [address] Care Team Providers Care Mold Capper Helper Name Role Phone Rosie Mathews MD Primary Care Provider [phone] Encounter Details Date Type Department Care Team (Late st Contact Info) Description 11/18/2023 External Results Administration [facility] [place] [address] Social History Tobacco Use Types Packs/Day Years Used Date Smoking Tobacco: Former Smokeless Tobacco: Never Alcohol Use Standard Drinks/Week Comments Not Currently 0 (1 standard drink = 0.6 oz pur e alcohol) [facility] Utilities Answer Date Recorded In [...] in a assisted (including now)? No 11/01/2023 DH IPV Inpatient [...] AM EDT Office Visit Cardiology at [address] [phone] Izaiah Meyer MD [facility] [place] [address] documented as of this encounter Procedures Procedure Name Priority Date/Time Associated Diagnosis Comments ECG SCAN Routine 11/18/2023 4:50 PM EDT documented in this encounter Results * Scan Doc: ECG (11/18/2023 4:50 PM EDT) Historical Provider MEDIA MGR SCAN EX T ORDR/RSLT documented in this encounter Visit Diagnoses Not on filedocumented in this encounter Care Teams Mold Capper Helper Relationship Specialty Start Date End Date Rosie Mathews MD [address] [place] [address] PCP - General Family Medicine 11/25/17 11/23/23 documented as of this encounter
--- OUTSIDE RECORDS SUMMARY | 2024-02-03 10:34 | XMS_ITS | Encounter Summary ---
Author Organization [facility] Address [facility] [place] [address] Care Team Providers Care Negative Spotter Name Role Phone Rosie Mathews MD Primary Care Provider [phone] Reason for Visit * Consultation (Routine) - Closed Specialty Diagnoses / Procedures Referred By John hunt Referred To Contact Audiology Diagnoses Hearing assessment and treatment options Karson John MD [address] [place] [address] [facility] [address] [place] [phone] Referral ID Status Reason Start Date Expiration Date V isits Requested Visits Authorized [id number] Closed Consult, Test & Treat Connection [facility] 11/22/2017 11/22/2018 1 1 Encounter Details Date Type Department Care Team (Latest Contact Info) Description 11/30/2017 3:15 PM EDT Office Visit Audiology at [address] [phone] Georgette Onofre AUD [facility] [place] [address] Sensorineural hearing loss, bilateral; Bilateral [...] first 10-15 years. Ms. Goodrich obtained binaural [facility] in-the-ear hearingaids nine years ago in [place], [place]. She stated she continues to experience [...] tone audiogram. SNR loss is the increased aiqkos-wl-fvcwd ratio required by an individual to understand [...] not hesitate to contact this Section at [phone] if there are questions regarding this report or its recommendations. Romeo Becker [place] [id number] Attachment: audiogram CC: MD Karson Loo MD Laurmarco a Catherine Edvinjonatanjosue [facility] [address] [place] [phone] documented in this encounter Plan of Treatment Upcoming Encounters Date Type Department Care Team (Late st Contact Info) Description 03/29/2024 11:20 AM EDT Office Visit Cardiology at [address] [place] [address] Izaiah Meyer MD [facility] [place] [address] documented as of this encounter Procedures Procedure [...] tinnitus documented in this encounter Care Teams Negative Spotter Relationship Specialty Start Date End Date Rosie Mathews MD [address] [place] [phone] PCP - General Family Medicine 11/25/17 11/23/23 documented as of this encounter
--- OUTSIDE RECORDS SUMMARY | 2024-02-03 10:34 | XMS_ITS | Encounter Summary ---
Author Organization [facility] [place] [address] Care Team Providers Care Director Airport Name Role Phone Rosie Mathews MD Primary Care Provider Reason for Visit * Auth/Cert (Routine) Specialty Diagnoses / Procedures Referred By Contac t Referred To Contact Diagnoses Unstable angina Procedures [email or web address] Referral ID Status Reason Start Date Expiration Date Visits Re quested Visits Authorized [id number] 1 1 Encounter Details Date Type Department Care Team (Latest Contact Info) Description 10/30/2023 5:00 PM EDT - 10/30/2023 5:10 PM EDT Hospital Encounter [place] [phone] Rosa Menjivar MD [facility] [place] [address] Discharge Disposition: Home Social History Tobacco Use Types Packs/Day Years Used Date Smoking Tobacco: Former Smokeless Tobacco: Never Alcohol Use Standard Drinks/Week Comments Not Currently 0 (1 standard drink = 0.6 oz pur e alcohol) [facility] Inpatient Questions Answer Date Recorded Does [...] 11:20 AM EDT Office Visit Cardiology at [address] [place] [address] Izaiah Meyer MD [facility] [place] [address] documented as of this encounter Visit Diagnoses Not on filedocumented in this encounter Care Teams Director Airport Relationship Specialty Start Date End Date Rosie Mathews MD [address] [place] [address] PCP - General Family Medicine 11/25/17 11/23/23 documented as of this encounter
--- OUTSIDE RECORDS SUMMARY | 2024-02-03 10:34 | XMS_ITS | Encounter Summary ---
Author Organization [facility] [place] [address] Care Team Providers Care Information Technology Architect Name Role Phone Rosie Mathews MD Primary Care Provider [phone] Reason for Visit * Auth/Cert (Routine) Specialty Diagnoses / Procedures Referred By Contac t Referred To Contact Diagnoses Unstable angina Chest pain NSTEMI Procedures CARDIAC CATHETERIZATION Rosa Dewey MD [facility] [place] [address] [facility] Referral ID Status Reason Start Date Expiration Date Visits Re quested Visits Authorized [id number] 1 1 Encounter Details Date Type Department Care Team (Late st Contact Info) Description 10/30/2023 4:25 PM EDT - 10/30/2023 5:27 PM EDT Surgery [place] [address] Rosa Dewey MD [facility] [address] [place], [place] [id number] CARDIAC CATHETERIZATION Social History Tobacco Use Types Packs/Day Years Used Date Smoking Tobacco: Former Smokeless Tobacco: Never Alcohol Use Standard Drinks/Week Comments Not Currently 0 (1 standard drink = 0.6 oz pur e alcohol) [facility] Inpatient Questions Answer Date Recorded Does [...] for hypertension and hyperlipidemia who presented to [facility] as a transfer from [facility] as a possible STEMI alert with acute onset chest pain. The patient reports that her symptoms initially began on Tuesday when she was walking to [facility] and experienced bilateral arm heaviness while walking with no other symptoms. Then, this afternoon shereports developing bilateral achy shoulder pain and nonradiating substernal left-sided chest pressure that was 7/10 in severity after coming home from cheondoism. The patient denies any associated fevers, chills, diaphoresis, lightheadedness/dizziness, syncope/presyncope, dyspnea (either at rest or on exertion), palpitations, orthopnea, or PND. The patient subsequently presented to [facility] as a walk-in for further evaluation. [...] on repeat, her JAMIE resolved. Cardiology at [facility] was consulted for transfer; the patient was loaded with aspirin 324 mg and ticagrelor 180 mg, started on a heparin drip, and given nitroglycerin with improvement in chest pain. Upon arrival to [facility], the patient was taken directly to the Network Relations Consultant. Two lesions were discovered: one in the prox RCA (felt to almost be a GYM TEACHER but they were able to wire, balloon, [...] dose administered prior to arrival in the prosthetics lab technician. Recommended anti-platelet/anti-thrombotic regimen: Continue aspirin 81 mg [...] and low lung volumes. Findings similar to investigative assistant radiograph from CT 10/30/2023. Pending Studies and [...] 10:40 AM Izaiah Meyer MD Cardiology at [place] Arrive at: [facility] [address] [phone] Future Orders Complete By Expires Referral to Cardiac Rehab [[id number] Custom] As directed Process Instructions: If no progress note charted, please enter Clinical details in comments. Scheduling Instructions: Questions: My question or request is: STEMI. Cardiac rehab at [facility]. Referral to Home Health [REF34 Custom] As directed Process Instructions: If no progress note charted, please enter Clinical details in comments. Scheduling Instructions: Comments: Please evaluate Adin Santos for admission to Home Health. [address] [place] [address] [place] [phone] (home) Date of : 1940 Inpatient DOCUMENTATION FOR VNA SERVICES (INCLUDING THOSE PATIENTS WITH MEDICARE COVERAGE REQUIRING HOME VNA SERVICES AND/OR HOSPICE SERVICES) PATIENT'S LOCATION: Adin Santos [address] [facility] [phone] (home) Cell: Telephone Information: Brake Operator Sheet Metal's Name: self In discussion with the attending physician, it is certified that this patient is under their care and that they, or a Nurse Practitioner, Clinical Nurse specialist or Physician Sports Physical Therapist who is working directly with them, had [...] regarding health issues HOME HEALTH CARE AGENCY: [facility] [address] [place] [phone] START OF CARE: within 24-48 hours of [...] Rosie Mathews MD [address] / [facility] [address] . All A agencies which cover the [...] MD / Dr. Masood Pierson [address] [place] [address] 11/09/23 1:55 PM arrival for 2:10 PM appointment Counseling Program Leader: Izaiah Meyer MD [address] [place] [address] , 11/24/2023 10:40 AM Your Inpatient Medical Team at [facility] Name(s) of your inpatient provider(s): Attending physician: Rosa Hugo MD Resident physicians: Emile Robles MD; Elmer Tamez MD If you have non-emergent questions, prior to your follow-up visit call: Tuesday-Tuesday between the hours of 8AM-5PM please call the Cardiology Clinic [phone] to speak with a nurse. All other hours please call the Hospital Ged Tutor [phone] and ask to speak to the radio machinist on-call. Your Primary Care Provider Rosie Mathews MD [phone] For questions regarding this document or issues relating to this hospitalization on the Medical Service, please contact your inpatient physician through the [facility] Ged Tutor . Issues afterhours and on weekends will be handled by the Counseling Program Leader staff on-call. Associated attestation - Rosa Hugo [...] MD / Dr. Masood Pierson [address] [place] [address] 11/09/23 1:55 PM arrival for 2:10 PM appointment Counseling Program Leader: Izaiah Meyer MD [address] [place] [address] , 11/24/2023 10:40 AM Your Inpatient Medical Team at [facility] Name(s) of your inpatient provider(s): Attending physician: Rosa Hugo MD Resident physicians: Emile Robles MD; Elmer Tamez MD If you have non-emergent questions, prior to your follow-up visit call: Tuesday-Tuesday between the hours of 8AM-5PM please call the Cardiology Clinic [phone] to speak with a nurse. All other hours please call the Hospital Ged Tutor [phone] and ask to speak to the radio machinist on-call. Your Primary Care Provider Rosie Mathews MD [phone] documented in this encounter Medications at Time [...] for hypertension and hyperlipidemia who presented to [facility] as a transfer from [facility] as a possible STEMI alert with [...] for hypertension and hyperlipidemia who presented to [facility] as a transfer from [facility] as a possible STEMI alert with [...] Resident on Cardiology Service Cardiology S1 (Pager [phone]) Note written in conjunction with Claudio Perla [facility], MS3 Associated attestation - Rosa [...] Nirmala Webb - 11/01/2023 11:25 AM EDT Ash Worker Encounter Note Patient Name: Adin Santos : [id number] MR#: [id number] Admit Date: 10/30/2023 5:11 PM Hospital Day 2 days Narrative: Self initiated visit to patient for Spiritual support in a regular unit rounds. Assessment: Patient is in the bathroom at the time of this visit. Not a good time for Legislative Director visit. Intervention and Outcome: An attempted visit [...] for hypertension and hyperlipidemia who presented to [facility] as a transfer from [facility] as a possible STEMI alert with [...] and low lung volumes. Findings similar to investigative assistant radiograph from CT 10/30/2023. Scheduled Medications: [MAR [...] for hypertension and hyperlipidemia who presented to [facility] as a transfer from [facility] as a possible STEMI alert with [...] Resident on Cardiology Service Cardiology S1 (Pager [phone]) Note written in conjunction with Claudio Perla [facility], MS3 Associated attestation - Rosa [...] for hypertension and hyperlipidemia who presented to [facility] as a transfer from [facility] as a possible STEMI alert with acute onset chest pain. Active Problems: Active Hospital Problems Diagnosis Unstable angina Resolved Hospital Problems No resolved problems to display. 24 hr events: - Cath'd yesterday with lesion in the proximal RCA (initially thought it was GYM TEACHER but they were ableto wire, balloon and [...] and low lung volumes. Findings similar to investigative assistant radiograph from CT 10/30/2023. TTE (10/30): Interpretation [...] for hypertension and hyperlipidemia who presented to [facility] as a transfer from [facility] as a possible STEMI alert with [...] Resident on Cardiology Service Cardiology S1 (Pager [phone]) Note written in conjunction with Claudio Perla [facility], MS3 Associated attestation - Rosa [...] PCP: Rosie Mathews MD PCP phone number: [phone] Date of Admission: 10/30/2023 ( Hospital Day 0 days ) Attending:Rosa Cornejo MD ID: Adin Santos is a 83 y.o. female PMH significant for hypertension and hyperlipidemia who presented to [facility] as a transfer from [facility] as a possible STEMI alert with acute onset chest pain. The patient reports that her symptoms initially began on Tuesday when she was walking to [facility] and experienced bilateral arm heaviness while walking with no other symptoms. Then, this afternoon shereports developing bilateral achy shoulder pain and nonradiating substernal left-sided chest pressure that was 7/10 in severity after coming home from cheondoism. The patient denies any associated fevers, chills, diaphoresis, lightheadedness/dizziness, syncope/presyncope, dyspnea (either at rest or on exertion), palpitations, orthopnea, or PND. The patient subsequently presented to [facility] as a walk-in for further evaluation. [...] on repeat, her JAMIE resolved. Cardiology at [facility] was consulted for transfer; the patient was loaded with aspirin 324 mg and ticagrelor 180 mg, started on a heparin drip, and given nitroglycerin with improvement in chest pain. Upon arrival to [facility], the patient was taken directly to the Network Relations Consultant. 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 Findings similar to investigative assistant radiograph from CT 10/30/2023. Assessment & Plan: Adin Santos is a 83 y.o. female PMH significant for hypertension and hyperlipidemia who presented to [facility] as a transfer from [facility] as a possible STEMI alert with [...] with HTN HLD transferred with chest from [facility]. BP 217/68, HR 71 EKG [...] information for follow-up Home Health [facility] H[facility], [place] [address] TANESHA BOYCE confirmed with Brittany CARVAJAL that they will see the patient within 24-48 hours of discharge for start of care. Transportation: family or friend will provide Wheelchair van/Ambulance? No Functional status prior to admission: Assistive Equipment Home Environment: Others in the home: alone. Current Living Arrangements: home/apartment/condo. Accessibility Concerns:1st floor apartment in [place]; handicapped accessible. Current Functional Ability: Assistive [...] in the room. Electrolytes replaced, see MAR. labor standards director sites remained C/D/I with baseline ecchymosis unchanged. Pt complained of back pain, lidocaine patch given. Right IV infiltrated during infusion, patient is marked with sharpie, IV removed. See flowsheet for I+O's and safety rounding. Patient is able to make needs known and call capps within reach. PLAN MOVING FORWARD: Monitor Tele, control BP, monitor prosthetics lab technician sites, D/C Planning INDIVIDUALIZED FALL PREVENTION INTERVENTIONS: [...] in an outpatient cardiac rehabilitation program at [facility] was discussed. Patient agrees to [...] and above on RA. PT went to prosthetics lab technician today. Left fem site oozed throughout shift, [...] MOVING FORWARD: Monitor Tele, control BP, monitor prosthetics lab technician sites, D/C Planning INDIVIDUALIZED FALL PREVENTION INTERVENTIONS: [...] Admitted From: Transfer from another hospital Location: [facility] Reason for Hospitalization: chest pain Covid Vaccination Status: 1st, 2nd & booster Past medical History: No past medical history on file. Hospitalizations Within the Past 30 Days: no previous admission in last 30 days Current Decision-Making Capacity: Self If AD's have not been completed the following surrogate would be surrogate decision maker per [place] surrogate decision making law. (Only good for 180 days) Any patient receiving care in [place] must abide by [place] law. The hierarchy for surrogate decision making [...] (i) The agent with financial power of nurses' association executive director or a conservator appointed in accordance with [...] Arrangements: home/apartment/condo. Accessibility Concerns:1st floor apartment in [place] community; handicapped accessible. In the last 12 [...] has the electric, gas, oil, or water [employer] threatened to shut off services in your [...] toilet seat Home Address confirmed as: [address] [facility] [address] Social & Family Supports: All names listed below confirmed with patient as current and correct Extended Emergency Contact Information Primary Emergency Contact: Iris Downing Address: [address], [place] [id number] [place] [address] Mobile Relation: Child Secondary Emergency Contact: Karen More Address: [address] [facility] Mobile Relation: Child Current Care Provided by: self Provides Primary Care For: no one Caregiver if needed: child(emmanuel), adult Quality of Family relationships: involved, supportive Community Resources being provided currently: other (see comments) (receives [facility] services at home (1xweekly)) Behavioral [...] Insurance: N/A Prescription Coverage: Yes Preferred Pharmacy: [facility] [place], [place] - [address] [place] [address] [place] [address] Status: Patient is a : No Primary Care Provider listed: Masood Pierson MD [phone] Patient/Caregiver Goals of Treatment: home when MR Potential Needs for Transition of Care: home health care Agency Referrals: Not Applicable I have met with the patient to: discuss discharge planning needs. provide the [facility], Office of Care Management letter from the Marble Cutter Operator pertaining to rehab referrals. provide a letter describing our affiliations within the [facility] and educate about their right to choose where referrals are sent. provide a list of Home Health Agencies / Durable Medical Equipment vendors which serve their preferred geographic area. provided patient with CMS Star Quality Rating handout. They have requested referrals to: [facility] [address] [place] [address] Note routed to a Telecommunications Consultant who will communicate referrals to facilities and [...] results. PO hydralazine added for BP control. labor standards director sites remain C/D/I, ecchymosis unchanged th roughout shift. See flowsheet for I+O's and safety rounding. Patient is able to make needs known and call capps within reach. PLAN MOVING FORWARD: Monitor Tele, control CP and BP, NPO at MD for cath, monitor prosthetics lab technician sites, D/C Planning INDIVIDUALIZED FALL PREVENTION INTERVENTIONS: [...] 11:20 AM EDT Office Visit Cardiology at [address] [address] Izaiah Meyer MD [facility] [place] [address] Scheduled Referrals Name Type Priority Associated Diagnoses [...] 3:46 AM EDT) Neutrophil % 63.3 % [facility] Neutrophil Absolute 5.28 1.70 - 6.10 x10(3)/mc L [facility] Lymph % 15.2 % [facility] Lymphocytes Abs 1.3 0.9 - 3.2 x10(3)/mc L [facility] Monocyte % 16.9 % [facility] Monocyte Abs 1.4(H) 0.3 - 0.9 x10(3)/mc L [facility] Eos % 3.7 % [facility] Eosinophils Abs 0.3 0.0 - 0.4 x10(3)/mc L [facility] Basophil % 0.5 % [facility] [...] MD HEMATOLOGY ORDERABLE S [facility] [place] [address] * (ABNORMAL) Hemogram (11/03/2023 3:46 AM EDT) White Blood Cell 8.3 4.0 - 9.5 x10(3)/[facility] Red Blood Cell 3.77(L) 4.00 - 5.21 x10(6)/[facility] Hemoglobin 13.1 11.7 - 15.5 g/dL [facility] Hematocrit 38.0 35.7 - 45.8 % [facility] Mean Cell Volume 100.8(H) 82.6 - 94.4 fL [facility] Mean Cell Hemoglobin 34.7(H) 27.1 - 32.0 pg [facility] Mean Cell Hemoglobin Concentration 34.5 31.7 - 35.0 g/dL [facility] Platelet 181 145 - 357 x10(3)/ L [facility] RDW Standard Deviation 54.7(H) 37.0 - 46.0 [facility] RDW coefficient of variation 14.6(H) 11.5 - 14.1 % [facility] Mean Platelet Volume 11.2 7.6 - 12.9 [facility] NRBC% auto 0.0 % [facility] NRBC Absolute 0.000 0.000 - 0.000 x10(3)/ L [facility] Blood 11/03/2023 3:46 AM EDT 11/03/2023 4:11 AM EDT Narrative Resulting Agency Comment Spec In Lab Qamar Gallardo MD HEMATOLOGY ORDERABLE S Performing Organization Address City/[facility]/ZIP Co de Phone Number [facility] [place] [address] * Phosphorus (11/03/2023 3:46 AM EDT) Phosphorus 3.2 2.5 - 4.5 mg/dL [facility] Comment:result rechecked-KS Blood 11/03/2023 3:46 AM EDT 11/03/2023 4:11 AM EDT Narrative Resulting Agency Comment Spec In Lab Rosa Cornejo MD CHEMISTRY ORDERABLE S Performing Organization Address [facility]/ZIP Co de Phone Number [facility] [place] [address] * Magnesium (11/03/2023 3:46 AM EDT) Magnesium 0.90 0.69 - 1.07 mmol/L [facility] Blood 11/03/2023 3:46 AM EDT 11/03/2023 4:11 AM EDT Narrative Resulting Agency Comment Spec In Lab Rosa Cornejo MD CHEMISTRY ORDERABLE S Performing Organization Address City/[facility]/ZIP Co de Phone Number [facility] [place] [address] * (ABNORMAL) Basic Metabolic Panel (non-fasting) (11/03/2023 [...] MD CHEMISTRY ORDERABLE S [facility] [place] [address] * EKG 12 Lead (11/02/2023 12:44 PM EDT) Ventricular rate 83 BPM MUSE SYSTEM Atrial Rate 83 BPM MUSE SYSTEM P-R Interval 216 ms MUSE SYSTEM QRS Duration 90 ms MUSE SYSTEM Q-T Interval 384 ms MUSE SYSTEM QTC Calculated (Bezet) 451 ms MUSE SYSTEM Calculated P [place] 92 degrees MUSE SYSTEM Calculated R [place] -51 degrees MUSE SYSTEM Calculated T [place] -33 degrees MUSE SYSTEM INTERPRETATION Sinus rhythm with 1st degree A-V block with Premature atrial complexes Left axis deviation Moderate voltage criteria for LVH, may be normal variant ( R in aVL , [place] product ) Anterolatera l infarct (cited on or before 01-NOV-2023) Abnormal ECG When compared with ECG of 01-NOV-2023 22:10, Premature atrial complexes are now Present NM interval has increased Vent. rate has decreased BY ??56 BPM Confirmed by MD Kevin, Esteban ([id number]) on 11/02/2023 1:32:10 PM MUSE SYSTEM 11/02/2023 12:4 4 PM EDT 11/02/2023 1:32 PM EDT Rosa Hugo MD ECG ORDERABLES MUSE SYSTEM * (ABNORMAL) Urinalysis Microscopic Exam (11/02/2023 11:40 AM EDT) RBC, Urine <1 0 - 4 /HPF [facility] Comment: Interpret results with caution, microscopic results are from suboptimal specimen volume WBC, Urine 16(H) 0 - 5 /HPF [facility] Comment: Interpret results with caution, microscopic results are from suboptimal specimen volume Bacteria, Urine Many(A) None /HPF [facility] Squamous Epithelial Cells Raw Data, Urine 10(H) <=4 /HPF [facility] Hyaline Casts, Urine 2 0 - 2 /LPF [facility] Comment: Interpret results with caution, microscopic results are from suboptimal specimen volume Clean Catch Urine 11/02/2023 11:40 AM EDT 11/02/2023 12:05 PM EDT Narrative Resulting Agency Comment Spec In Lab Elmer Tamez MD URINE ORDERABLES [facility] [place] [address] * (ABNORMAL) Urinalysis with reflex Culture (11/02/2023 [...] HOSPITAL LABORATORY Leukocytes, Urine Dipstick Small(A) Negative [facility] Appearance, Urine Dipstick Cloudy(A) Clear [facility] Specific [place] Urine Automated >=1.030(A) 1.005 - 1.030 [facility] Color, Urine Dipstick Dark Yellow Yellow [facility] Reflex to Culture Yes [facility] Clean Catch Urine 11/02/2023 11:40 AM EDT 11/02/2023 12:04 PM EDT Narrative Resulting Agency Comment Spec In Lab Rosa Hugo MD URINE ORDERABLES [facility] [place] [address] * Respiratory Panel PCR (11/02/2023 10:15 AM EDT) Respiratory Panel Source INFRASTRUCTURE DESIGN ENGINEER Swab [facility] Respiratory Panel PCR Negative Negative [facility] Comment: Respiratory Panels are performed on the Local Eye Site, using multiplexed PCR nucleic acid detection. ??Negative [...] performed using the BioFire Respiratory Panel 2.1 ([place]) as authorized by the FDA issued Emergency Use Authorization (EUA). This panel also tests for multiple other viral and bacterial pathogens. This assay is intended for In-vitro Diagnostic (IVD) use with nasopharyngeal swabs in viral transport media. The assay is performed based on the instructions for use and additional guidance provided by the FDA. Testing is performed in laboratories within the [facility], each of which is certified under the [...] fact sheets at the following FDA website: https://www.fda.gov/medical-devices/bupcoxehrkd-gzzybks-9115-epywj-44-ryawoaxzt- use-a yeecjmdwclxsk-tnqdslp-zbcsmfj/klitp-zhubveidaas-gzrf Human Metapneumovirus Not Detected Not Detected [facility] [...] - GEN ERAL ORDERABLES [facility] [place] [address] * XR Chest One View (11/02/2023 2:51 AM EDT) WORKSTATION ID [id number] DH RAD Anatomical Region Laterality Modality Chest [...] questions please contact the health child care associate teacher that requested your imaging first. ? Electronically signed by: Omaira Tran MD, [facility] ([phone]), at 11/02/2023 4:56 AM Narrative 11/02/2023 4:56 [...] have questions please contactthe health child care associate teacher that requested your imaging first. Electronically signed by: Omaira Tran MD, [facility]([phone]), at 11/02/2023 4:56 AM Rosa Hugo MD IMG DX ORDERABLES * (ABNORMAL) Differential, Automated (11/02/2023 12:35 AM EDT) Neutrophil % 76.5 % [facility] Neutrophil Absolute 7.69(H) 1.70 - 6.10 x10(3)/mc L [facility] Lymph % 8.3 % [facility] Lymphocytes Abs 0.8(L) 0.9 - 3.2 x10(3)/mc L [facility] Monocyte % 12.9 % [facility] Monocyte Abs 1.3(H) 0.3 - 0.9 x10(3)/mc L [facility] Eos % 1.4 % [facility] Eosinophils Abs 0.1 0.0 - 0.4 x10(3)/mc L [facility] Basophil % 0.4 % [facility] [...] Absolute 0.05(H) 0.00 - 0.04 x10(3)/ L [facility] Blood 11/02/2023 12:3 5 AM EDT 11/02/2023 12:43 AM EDT Narrative Resulting Agency Comment Spec In Lab Qamar Gallardo MD HEMATOLOGY ORDERABLE S [facility] [place] [address] * (ABNORMAL) Hemogram (11/02/2023 12:35 AM EDT) [...] Platelet Volume 11.4 7.6 - 12.9 fL [facility] NRBC% auto 0.0 % [facility] NRBC Absolute 0.000 0.000 - 0.000 x10(3)/mc L [facility] Blood 11/02/2023 12:3 5 AM EDT 11/02/2023 12:43 AM EDT Narrative Resulting Agency Comment Spec In Lab Qamar Gallardo MD HEMATOLOGY ORDERABLE S [facility] [place] [address] * (ABNORMAL) Phosphorus (11/02/2023 12:35 AM EDT) Phosphorus 1.6(L) 2.5 - 4.5 mg/dL [facility] Blood 11/02/2023 12:3 5 AM EDT 11/02/2023 12:43 AM EDT Narrative Resulting Agency Comment Spec In Lab Rosa Cornejo MD CHEMISTRY ORDERABLE S Performing Organization Address [facility]/ZIP Co de Phone Number [facility] [place] [address] * Magnesium (11/02/2023 12:35 AM EDT) Magnesium 0.87 0.69 - 1.07 mmol/L [facility] Blood 11/02/2023 12:3 5 AM EDT 11/02/2023 12:43 AM EDT Narrative Resulting Agency Comment Spec In Lab Rosa Cornejo MD CHEMISTRY ORDERABLE S Performing Organization Address City/[facility]/ZIP Co de Phone Number [facility] [place] [address] * Basic Metabolic Panel (non-fasting) (11/02/2023 12:35 [...] MD CHEMISTRY ORDERABLE S [facility] [place] [address] * Blood culture (11/02/2023 12:35 AM EDT) Blood Culture No growth at 5 days. [facility] Blood 11/02/2023 12:3 5 AM EDT 11/02/2023 1:55 AM EDT Comment:#2 site ukn Narrative Resulting Agency Comment Spec In Lab Rosa Hugo MD MICROBIOLOGY - BLO OD ORDERABLES Performing Organization Address [facility] Co de Phone Number [facility] [place] [address] * Blood culture (11/02/2023 12:15 AM EDT) Blood Culture No growth at 5 days. [facility] Blood 11/02/2023 12:1 5 AM EDT 11/02/2023 1:54 AM EDT Comment:#1site unk Narrative Resulting Agency Comment Spec In Lab Rosa Hugo MD MICROBIOLOGY - BLO OD ORDERABLES Performing Organization Address [facility] Co de Phone Number [facility] [place] [address] * EKG 12 Lead (11/01/2023 10:10 PM EDT) Ventricular rate 139 BPM MUSE SYSTEM Atrial Rate 139 BPM MUSE SYSTEM P-R Interval 168 ms MUSE SYSTEM QRS Duration 84 ms MUSE SYSTEM Q-T Interval 286 ms MUSE SYSTEM QTC Calculated (Bezet) 435 ms MUSE SYSTEM Calculated R [place] -59 degrees MUSE SYSTEM Calculated T [place] -27 degrees MUSE SYSTEM INTERPRETATION Mid-RP tachycardia, consider sinus tachycardia or SVT Left axis deviation Moderate voltage criteria for LVH, may be normal variant ( R in aVL , Gurabo product ) Inferior infarct (cited on or before 01-NOV-2023) Anterolateral infarct (cited on or before 01-NOV-2023) Abnormal ECG When compared with ECG of 01-NOV-2023 15:22, Vent. rate Although rate has increased Serial changes of Anterior infarct Present I personally reviewed the tracing and edited the fellows interpretation Confirmed by fellow MD Bowen Ashley ([id number]) on 11/04/2023 7:57:50 AM Confirmed by MD Carrillo Danette ([id number]) on 11/04/2023 4:32:03 PM MUSE SYSTEM 11/01/2023 10:1 0 PM EDT 11/04/2023 4:32 PM EDT Rosa Cornejo MD ECG ORDERABLES MUSE SYSTEM * (ABNORMAL) Hemogram (11/01/2023 10:06 PM EDT) White Blood Cell 10.4(H) 4.0 - 9.5 x10(3)/[facility] Red Blood Cell 4.11 4.00 - 5.21 x10(6)/[facility] Hemoglobin 14.0 11.7 - 15.5 g/dL [facility] Hematocrit 41.1 35.7 - 45.8 % [facility] Mean Cell Volume 100.0(H) 82.6 - 94.4 fL [facility] Mean Cell Hemoglobin 34.1(H) 27.1 - 32.0 pg [facility] Mean Cell Hemoglobin Concentration 34.1 31.7 - 35.0 g/dL [facility] Platelet 197 145 - 357 x10(3)/ L [facility] RDW Standard Deviation 54.0(H) 37.0 - 46.0 fL [facility] RDW coefficient of variation 14.6(H) 11.5 - 14.1 % [facility] Mean Platelet Volume 11.2 7.6 - 12.9 fL [facility] NRBC% auto 0.0 % [facility] NRBC Absolute 0.000 0.000 - 0.000 x10(3)/ L [facility] Blood 11/01/2023 10:0 6 PM EDT 11/01/2023 10:22 PM EDT Narrative Resulting Agency Comment Spec In Lab Rsoa Hugo MD HEMATOLOGY ORDERAB LES Performing Organization Address City/[facility]/ZIP Co de Phone Number [facility] [place] [address] * POCT Glucose (11/01/2023 5:59 PM EDT) [facility] Signature Glucose, POC 104 65 - 199 mg/dL [facility] Comment: Supplemental ranges: <140 mg/dL before meals <180 mg/dL all other times of the day Blood 11/01/2023 5:59 PM EDT 11/01/2023 5:59 PM EDT Rosa Hugo MD POINT OF CARE TEST ORDERABLES Performing Organization Address [facility] Co de Phone Number [facility] [place] [address] * POCT Glucose (11/01/2023 5:35 PM EDT) [facility] Glucose, POC 85 65 - 199 mg/dL [facility] Comment: Supplemental ranges: <140 mg/dL before meals <180 mg/dL all other times of the day Blood 11/01/2023 5:35 PM EDT 11/01/2023 5:35 PM EDT Rosa Hugo MD POINT OF CARE TEST ORDERABLES Performing Organization Address City/[facility] Co de Phone Number [facility] [place] [address] * EKG 12 Lead (11/01/2023 3:22 PM EDT) Ventricular rate 59 BPM MUSE SYSTEM Atrial Rate 59 BPM MUSE SYSTEM P-R Interval 220 ms MUSE SYSTEM QRS Duration 94 ms MUSE SYSTEM Q-T Interval 428 ms MUSE SYSTEM QTC Calculated (Bezet) 423 ms MUSE SYSTEM Calculated P [place] 76 degrees MUSE SYSTEM Calculated R [place] -50 degrees MUSE SYSTEM Calculated T [place] -59 degrees MUSE SYSTEM INTERPRETATION Sinus bradycardia [...] Narrative 11/02/2023 4:57 PM EDT ?[facility] ? Cardiac Catheterization/Intervention Report ? Patient Name: Adin Santos ? Procedure Date: 11/01/2023 ? A #: [id number] ? Primary Physician: Roas Dewey I ? Case #: [id number] ? File Name: [id number] ? Catheterization Order Number: [id number] ? [facility] ? Final Report [place], [place] ? Patient Name: ? Adin M. Goguen ?ID#: ?[id number] ? : ?1940 ? Procedure Date: ? [...] procedure was Urgent. The indication for ?the prosthetics lab technician visit is ACS greater than 24 hrs. [...] ??A premounted ? 3.50 x 15 mm Centerview Alcona (RADHA) was deployed with a maximum ? [...] ? A premounted 3.50 x 15 mm Andrea Alcona (RADHA) was deployed ? with a maximum [...] dose administered prior to arrival in the prosthetics lab technician. ?Recommended anti-platelet/anti-thrombotic regimen: ?Continue aspirin 81 mg daily for indefinitely. ?Continue clopidogrel 75 mg daily for 12 months then stop. ?These recommendations are made at the time of the intervention. Patient ?and provider preferences or a changing clinical situation may require ?modification of this regimen. Consult [facility] Interventional Cardiology for ?questions. [...] Rosa Dewey MD - 12/12/2023 [facility] Cardiac Catheterization/Intervention Report Patient Name: Adin Santos Procedure Date: 11/01/2023 A #: [id number] Primary Physician: Rosa Dewey I Case #: [id number] File Name: [id number] Catheterization Order Number: [id number] [facility] FinalReport [place], [place] Patient Name: Adin Santos ID#:[id number] :1940 Procedure Date: November 01, 2023 Case [...] was designated as ASA Class III. [facility]: Vulnerable. Diagnostic Tests: Prior Coronary Angiography: LV ejection fraction within 6 months is 65%. Electrocardiography: EKG was assessed by ECG. EKG was Abnormal. EKG showed other abnormality. Medications Prior to Procedure: Aspirin, Angiotensin II Receptor Rodrick and Statin. Indications for Diagnostic Cath: The priority of the diagnostic procedure was Urgent. The indicationfor the prosthetics lab technician visit is ACS greater than 24 hrs. [...] 14 atmospheres. Apremounted 3.50 x 15 mm Centerview Alcona (RADHA) was deployed with amaximum inflation pressure [...] The lesion was predilated with a 3.00mm COAZWDE60 MM balloon with a maximum inflation pressure of 14atmospheres. A premounted 3.50 x 15 mm Andrea Alcona (RADHA) wasdeployed with a maximum inflation pressure [...] dose administered prior to arrival in the prosthetics lab technician. Recommended anti-platelet/anti-thrombotic regimen: Continue aspirin 81 mg daily for indefinitely. Continue clopidogrel 75 mg daily for 12 months then stop. These recommendations are made at the time of the intervention.Patient and provider preferences or a changing clinical situation mayrequire modification of this regimen. Consult [facility] Interventional Cardiologyfor questions. The [...] * POCT Glucose (11/01/2023 7:06 AM EDT) [facility] Glucose, POC 93 65 - 199 mg/dL [facility] Comment: Supplemental ranges: <140 mg/dL before meals <180 mg/dL all other times of the day Blood 11/01/2023 7:06 AM EDT 11/01/2023 7:06 AM EDT Jean Laboy MD POINT OF CARE TEST O RDERABLES [facility] [place] [address] * (ABNORMAL) Differential, Automated (11/01/2023 3:09 AM EDT) Pathologist [facility] Neutrophil % 63.9 % [facility] Neutrophil Absolute 5.54 1.70 - 6.10 x10(3)/mc L [facility] Lymph % 20.0 % [facility] Lymphocytes Abs 1.7 0.9 - 3.2 x10(3)/mc L [facility] Monocyte % 11.9 % [facility] Monocyte Abs 1.0(H) 0.3 - 0.9 x10(3)/mc L [facility] Eos % 3.2 % [facility] Eosinophils Abs 0.3 0.0 - 0.4 x10(3)/ L [facility] Basophil % 0.5 % [facility] [...] MD HEMATOLOGY ORDERABLE S Performing Organization Address City/State/[facility] Co de Phone Number [facility] [place] [address] * (ABNORMAL) Hemogram (11/01/2023 3:09 AM EDT) [...] Platelet 184 145 - 357 x10(3)/mc L [facility] RDW Standard Deviation 53.5(H) 37.0 - 46.0 fL [facility] RDW coefficient of variation 14.6(H) 11.5 - 14.1 % [facility] Mean Platelet Volume 11.3 7.6 - 12.9 fL [facility] NRBC% auto 0.0 % [facility] NRBC Absolute 0.000 0.000 - 0.000 x10(3)/mc L [facility] Blood 11/01/2023 3:09 AM EDT 11/01/2023 3:29 AM EDT Narrative Resulting Agency Comment Spec In Lab Qamar Gallardo MD HEMATOLOGY ORDERABLE S Performing Organization Address City/[facility]/ZIP Co de Phone Number [facility] [place] [address] * Phosphorus (11/01/2023 3:09 AM EDT) Phosphorus 2.5 2.5 - 4.5 mg/dL [facility] Blood 11/01/2023 3:09 AM EDT 11/01/2023 3:29 AM EDT Narrative Resulting Agency Comment Spec In Lab Rosa Cornejo MD CHEMISTRY ORDERABLE S Performing Organization Address City/[facility]/ZIP Co de Phone Number [facility] [place] [address] * Magnesium (11/01/2023 3:09 AM EDT) Magnesium 0.82 0.69 - 1.07 mmol/L [facility] Blood 11/01/2023 3:09 AM EDT 11/01/2023 3:29 AM EDT Narrative Resulting Agency Comment Spec In Lab Rosa Cornejo MD CHEMISTRY ORDERABLE S [facility] [place] [address] * (ABNORMAL) Basic Metabolic Panel (non-fasting) (11/01/2023 [...] MD CHEMISTRY ORDERABLE S [facility] [place] [address] * (ABNORMAL) Troponin (10/31/2023 2:46 PM EDT) [...] troponin value can be found in the [facility] Test Catalog Troponin - [facility] Test Catalog Reference: Fourth Chapman Definition of Myocardial Infarction. Journal of the [place] [employer] 2018;72:0155-1633 Blood 10/31/2023 2:46 PM EDT 10/31/2023 2:55 PM EDT Narrative Resulting Agency Comment Spec In Lab Jean Laboy MD CHEMISTRY ORDERABLES Performing Organization Address [facility] Co de Phone Number [facility] [place] [address] * EKG 12 Lead (10/31/2023 1:07 PM EDT) Ventricular rate 54 BPM MUSE SYSTEM Atrial Rate 54 BPM MUSE SYSTEM P-R Interval 218 ms MUSE SYSTEM QRS Duration 92 ms MUSE SYSTEM Q-T Interval 540 ms MUSE SYSTEM QTC Calculated (Bezet) 512 ms MUSE SYSTEM Calculated P [place] 85 degrees MUSE SYSTEM Calculated R [place] -44 degrees MUSE SYSTEM Calculated T [place] -69 degrees MUSE SYSTEM INTERPRETATION Sinus bradycardia with 1st degree A-V block Left axis deviation Moderate voltage criteria for LVH, may be normal variant ( R in aVL , Gurabo product ) T wave abnormality, consider inferolateral ischemia Prolonged QT Abnormal ECG When compared with ECG of 30-OCT-2023 20:21, Incomplete right bundle branch block is no longer Present Confirmed by MD NEFTALI, CHIDI ([id number]) on 10/31/2023 2:28:46 PM MUSE SYSTEM 10/31/2023 1:07 PM EDT 10/31/2023 2:28 PM EDT Rosa Cornejo MD ECG ORDERABLES Performing Organization Address [facility] Co de Phone Number MUSE SYSTEM * (ABNORMAL) Troponin (10/31/2023 11:37 AM EDT) Pathologist [facility] Troponin-T, High Sensitivity 580(H) <=14 ng/L [facility] [...] troponin value can be found in the [facility] Test Catalog Troponin - [facility] Test Catalog Reference: Fourth Chapman Definition of Myocardial Infarction. Journal of the [place] [employer] 2018;72:5872-0508 Blood 10/31/2023 11:3 7 AM EDT 10/31/2023 11:50 AM EDT Narrative Resulting Agency Comment Spec In Lab Rosa Cornejo MD CHEMISTRY ORDERABLE S [facility] [place] [address] * ECHO COMPLETE (10/31/2023 8:52 AM EDT) Anatomical Region Laterality Modality Cardiac Other 10/31/2023 7:57 AM EDT Narrative 10/31/2023 9:45 [place] [address] [place] [address] ? Echocardiogram Report Name: ADIN SANTOS ? Study Date: 10/31/2023 07:57 AMBP: 106/76 mmHg ? Patient Location: [facility] 0[facility] A : 1940 ? Height: 163 cm ? Account: [id number] Age: 83 yrs ? Weight: 76 kg Gender: Female ?BSA: 1.8 m2 Ordering Physician: ROSA DEWEY Referring Physician: OMAIRA GIRON Performed By: HAFSA Carmichael Reason For Study: STEMI Interpreting Fellow: Raymond Warren. Exam Location: [facility]. Interpretation Summary -The left ventricle is [...] is no prior echocardiogram for comparison. Procedure Complete-44360. Satisfactory quality. There is sinus bradycardia. Left Ventricle Left ventricle is of normal size. Moderately increased thickness of the basal septum with no obstruction to LV outflow. There is no ventricular septal defect. Left ventricular systolic function is normal. The left ventricular ejection fraction is 64% by Plye's biplane. There are segmental wall motion abnormalities. [...] Note Edgard Wang MD - 10/31/2023 [address] [place] [id number] Echocardiogram Report Name: TREY SANTOSMarco A Catherine Study Date: 407:57 AMBP: 106/76 mmHg Patient Location: [address] : 1940 Height: 163 cm Account: [id number] Age: 83 yrs Weight: 76 kg Gender: Female BSA: 1.8 m2 Ordering Physician: ROSA DEWEY Referring Physician: OMAIRA GIRON Performed By: HAFSA Carmichael Reason For Study: STEMI Interpreting Fellow: Raymond Warren. Exam Location: [facility]. Interpretation Summary -The left ventricle is [...] is no prior echocardiogram for comparison. Procedure Complete-65336. Satisfactory quality. There is sinus bradycardia. Left [...] troponin value can be found in the [facility] Test Catalog Troponin - [facility] Test Catalog Reference: Fourth Chapman Definition of Myocardial Infarction. Journal of the [place] [employer] 2018;72:9593-6783 Blood 10/31/2023 8:51 AM EDT 10/31/2023 9:12 AM EDT Narrative Resulting Agency Comment Spec In Lab Rosa Cornejo MD CHEMISTRY ORDERABLE S Performing Organization Address City/State/[facility] Co de Phone Number [facility] [place] [address] * CARDIAC CATHETERIZATION (10/31/2023 8:10 AM EDT) Anatomical Region Laterality Modality Other Narrative 11/07/2023 9:42 AM EDT ?[facility] ? Cardiac Catheterization/Intervention Report ? Patient Name: Adin Santos M. ? Procedure Date: 10/30/2023 ? A #: [id number] ? Primary Physician: Rosa Dewey I ? Case #: [id number] ? File Name: [id number] ? Catheterization Order Number: [id number] ? [facility] ? Final Report [place], [place] ? Patient Name: ? Adin M. Goguen ?ID#: ?[id number] ? : ?1940 ? Procedure Date: ? October 30, 2023 ? Case #: ? [id number] ? Room: ? 5 ? Case Physician: ? Rosa Dewey M.D. ? Start: ?17:26 ?Fellow: ? Taovn Ha Jr., M.D. ?Admission: ??10/30/2023 ? Discharge: [...] procedure was Emergent. The indication for ?the prosthetics lab technician visit is ACS less than or equal [...] ? A premounted 4.00 x 38 mm Centerview Alcona (RADHA) was deployed ? with a maximum [...] dose administered prior to arrival in the prosthetics lab technician. ?Recommended anti-platelet/anti-thrombotic regimen: ?Continue aspirin 81 mg daily for 12 months then stop. ?Continue clopidogrel 75 mg daily for indefinitely. ?These recommendations are made at the time of the intervention. Patient ?and provider preferences or a changing clinical situation may require ?modification of this regimen. Consult [facility] Interventional Cardiology for ?questions. [...] Rosa Dewey MD - 12/05/2023 [facility] Cardiac Catheterization/Intervention Report Patient Name: Adin Santos Procedure Date: 10/30/2023 A #: [id number] Primary Physician: Rosa Dewey I Case #: [id number] File Name: [id number] Catheterization Order Number: [id number] [facility] FinalReport [place], [place] Patient Name: Adin Santos ID#:[id number] :1940 Procedure Date: October 30, 2023 Case [...] was designated as ASA Class III. The [facility] clinical frailtyscale is 5: Mildly Frail. Diagnostic Tests: Electrocardiography: EKG was assessed by ECG. EKG was Abnormal. EKG showed STDeviation >= 0.5 mm, other abnormality and dynamic EKG changes. Medications Prior to Procedure: Aspirin, Angiotensin II Receptor Rodrick, Beta Rodrick andStatin. Indications for Diagnostic Cath: The priority of the diagnostic procedure was Emergent. Theindication for the prosthetics lab technician visit is ACS less than or equal [...] A premounted 4.00 x 38 mm Andrea Alcona (RADHA) wasdeployed with a maximum inflation pressure [...] dose administered prior to arrival in the prosthetics lab technician. Recommended anti-platelet/anti-thrombotic regimen: Continue aspirin 81 mg daily for 12 months then stop. Continue clopidogrel 75 mg daily for indefinitely. These recommendations are made at the time of the intervention.Patient and provider preferences or a changing clinical situation mayrequire modification of this regimen. Consult [facility] Interventional Cardiologyfor questions. Conclusions: [...] * (ABNORMAL) Troponin (10/31/2023 4:21 AM EDT) [facility] Troponin-T, High Sensitivity 457(H) <=14 ng/L [facility] [...] troponin value can be found in the [facility] Test Catalog Troponin - [facility] Test Catalog Reference: Fourth Chapman Definition of Myocardial Infarction. Journal of the [place] [employer] 2018;72:3195-5796 Blood 10/31/2023 4:21 AM EDT 10/31/2023 4:30 AM EDT Narrative Resulting Agency Comment Spec In Lab Rosa Cornejo MD CHEMISTRY ORDERABLE S Performing Organization Address City/State/[facility] Co de Phone Number [facility] [place] [address] * (ABNORMAL) Differential, Automated (10/31/2023 3:05 AM EDT) Neutrophil % 71.7 % [facility] Neutrophil Absolute 8.21(H) 1.70 - 6.10 x10(3)/mc L [facility] Lymph % 16.9 % [facility] Lymphocytes Abs 1.9 0.9 - 3.2 x10(3)/mc L [facility] Monocyte % 9.4 % [facility] Monocyte Abs 1.1(H) 0.3 - 0.9 x10(3)/mc L [facility] Eos % 1.3 % [facility] Eosinophils Abs 0.2 0.0 - 0.4 x10(3)/mc L [facility] Basophil % 0.4 % [facility] [...] MD HEMATOLOGY ORDERABLE S Performing Organization Address City/State/[facility] Co de Phone Number [facility] [place] [address] * (ABNORMAL) Hemogram (10/31/2023 3:05 AM EDT) White Blood Cell 11.5(H) 4.0 - 9.5 x10(3)/ L [facility] Red Blood Cell 3.75(L) 4.00 - 5.21 x10(6)/ L [facility] Hemoglobin 12.6 11.7 - 15.5 [...] Standard Deviation 53.4(H) 37.0 - 46.0 fL [facility] RDW coefficient of variation 14.6(H) 11.5 - 14.1 % [facility] Mean Platelet Volume 11.1 7.6 - 12.9 fL [facility] NRBC% auto 0.0 % [facility] NRBC Absolute 0.000 0.000 - 0.000 x10(3)/mc L [facility] Blood 10/31/2023 3:05 AM EDT 10/31/2023 3:13 AM EDT Narrative Resulting Agency Comment Spec In Lab Qamar Gallardo MD HEMATOLOGY ORDERABLE S Performing Organization Address [facility] Co de Phone Number [facility] [place] [address] * (ABNORMAL) APTT (10/31/2023 3:05 AM EDT) [...] MD HEMATOLOGY ORDERABL ES Performing Organization Address [facility] Co de Phone Number [facility] [place] [address] * (ABNORMAL) Prothrombin Time (10/31/2023 3:05 AM [...] Lab Rosa Cornejo MD HEMATOLOGY ORDERABL ES [facility] [place] [address] * (ABNORMAL) Differential, Automated (10/31/2023 1:37 AM EDT) Neutrophil % 71.1 % [facility] Neutrophil Absolute 7.53(H) 1.70 - 6.10 x10(3)/mc L [facility] Lymph % 18.0 % [facility] Lymphocytes Abs 1.9 0.9 - 3.2 x10(3)/mc L [facility] Monocyte % 8.7 % [facility] Monocyte Abs 0.9 0.3 - 0.9 x10(3)/mc L [facility] Eos % 1.6 % [facility] Eosinophils Abs 0.2 0.0 - 0.4 x10(3)/mc L [facility] Basophil % 0.4 % [facility] [...] x10(3)/mc L [facility] Blood 10/31/2023 1:37 AM EDT 10/31/2023 1:46 AM EDT Narrative Resulting Agency Comment Spec In Lab Qamar Gallardo MD HEMATOLOGY ORDERABLE S [facility] [place] [address] * (ABNORMAL) Hemogram (10/31/2023 1:37 AM EDT) [...] Platelet 204 145 - 357 x10(3)/mc L [facility] RDW Standard Deviation 54.3(H) 37.0 - 46.0 fL [facility] RDW coefficient of variation 14.6(H) 11.5 - 14.1 % [facility] Mean Platelet Volume 11.1 7.6 - 12.9 fL [facility] NRBC% auto 0.0 % [facility] NRBC Absolute 0.000 0.000 - 0.000 x10(3)/mc L [facility] Blood 10/31/2023 1:37 AM EDT 10/31/2023 1:46 AM EDT Narrative Resulting Agency Comment Spec In Lab Qamar Gallardo MD HEMATOLOGY ORDERABLE S [facility] [place] [address] * Phosphorus (10/31/2023 1:37 AM EDT) [facility] Phosphorus 3.2 2.5 - 4.5 mg/dL [facility] Blood 10/31/2023 1:37 AM EDT 10/31/2023 1:46 AM EDT Narrative Resulting Agency Comment Spec In Lab Rosa Cornejo MD CHEMISTRY ORDERABLE S Performing Organization Address City/[facility]/ZIP Co de Phone Number [facility] [place] [address] * Magnesium (10/31/2023 1:37 AM EDT) [facility] Magnesium 0.83 0.69 - 1.07 mmol/L [facility] Blood 10/31/2023 1:37 AM EDT 10/31/2023 1:46 AM EDT Narrative Resulting Agency Comment Spec In Lab Rosa Cornejo MD CHEMISTRY ORDERABLE S Performing Organization Address City/[facility]/ZIP Co de Phone Number [facility] [place] [address] * Basic Metabolic Panel (non-fasting) (10/31/2023 1:37 AM EDT) [facility] Glucose 114 65 - 199 mg/dL [facility] [...] MD CHEMISTRY ORDERABLE S [facility] [place] [address] * (ABNORMAL) Troponin (10/31/2023 1:37 AM EDT) [...] troponin value can be found in the [facility] Test Catalog Troponin - [facility] Test Catalog Reference: Fourth Chapman Definition of Myocardial Infarction. Journal of the [place] [employer] 2018;72:9729-2395 Blood 10/31/2023 1:37 AM EDT 10/31/2023 1:46 AM EDT Narrative Resulting Agency Comment Spec In Lab Rosa Cornejo MD CHEMISTRY ORDERABLE S Performing Organization Address City/State/[facility] [place] [address] * EKG 12 Lead (10/31/2023 1:20 AM EDT) Ventricular rate 52 BPM MUSE SYSTEM Atrial Rate 52 BPM MUSE SYSTEM P-R Interval 224 ms MUSE SYSTEM QRS Duration 108 ms MUSE SYSTEM Q-T Interval 544 ms MUSE SYSTEM QTC Calculated (Bezet) 505 ms MUSE SYSTEM Calculated P [place] 90 degrees MUSE SYSTEM Calculated R [place] -57 degrees MUSE SYSTEM Calculated T [place] -63 degrees MUSE SYSTEM INTERPRETATION Sinus bradycardia [...] Cornejo MD ECG ORDERABLES Performing Organization Address [facility] de Phone Number MUSE SYSTEM * EKG 12 Lead (10/30/2023 10:40 PM EDT) Ventricular rate 55 BPM MUSE SYSTEM Atrial Rate 55 BPM MUSE SYSTEM P-R Interval 232 ms MUSE SYSTEM QRS Duration 102 ms MUSE SYSTEM Q-T Interval 520 ms MUSE SYSTEM QTC Calculated (Bezet) 497 ms MUSE SYSTEM Calculated P [place] 75 degrees MUSE SYSTEM Calculated R [place] -53 degrees MUSE SYSTEM Calculated T [place] -57 degrees MUSE SYSTEM INTERPRETATION Sinus bradycardia with 1st degree A-V block Left anterior fascicular block Moderate voltage criteria for LVH, may be normal variant ( R in aVL , [place] product ) T wave abnormality, consider inferior ischemia T wave abnormality, consider anterolateral ischemia Prolonged QT Abnormal ECG When compared with ECG of 30-OCT-2023 20:21, Incomplete right bundle branch block is no longer Present Confirmed by Charles COFFMAN, Butch ([id number]) on 11/01/2023 8:58:01 PM MUSE SYSTEM 10/30/2023 10:4 0 PM EDT 11/01/2023 8:58 PM EDT Rosa Cornejo MD ECG ORDERABLES Performing Organization Address [facility] Phone Number MUSE SYSTEM * XR Chest One View (10/30/2023 10:10 PM EDT) WORKSTATION ID [id number] RAD Anatomical Region Laterality Modality Chest N/A Digital Radiogra phy Impressions 10/30/2023 10:32 PM EDT 1. ??Examination limited by low lung volumes. 2. ??Findings suggesting pulmonary vascular congestion with possible mild interstitial edema. 3. ??Known ascending aortic aneurysm, as seen on recent CT. 4. ??Nonspecific widening mediastinum. This can be secondary to magnification from portable technique and low lung volumes. Findings similar to investigative assistant radiograph from CT 10/30/2023. Thank you for letting us participate in the care of this patient. ??If you are a health care provider and have any questions regarding this report, please contact the number below. ??For patients who have questions please contact the health child care associate teacher that requested your imaging first. ? Electronically signed by: Wilson Mccartney MD, [facility] ([phone]), at 10/30/2023 10:32 PM Narrative 10/30/2023 10:32 [...] and low lung volumes. Findings similar to investigative assistant radiograph from CT 10/30/2023. Thank you for letting us participate in the care of this patient. If youare a health care provider and have any questions regarding this report,please contact the number below. For patients who have questions please contactthe health child care associate teacher that requested your imaging first. Rosa Cornejo MD IMG DX ORDERABLES * Green Tube HOLD (10/30/2023 10:05 PM EDT) [facility] Green Hold Sample in lab. [facility] Blood Venous Draw / Unknown 10/30/2023 10:05 PM EDT 10/30/2023 10:13 PM EDT Qamar Gallardo MD CHEMISTRY ORDERABLES [facility] [place] [address] * (ABNORMAL) Differential, Automated (10/30/2023 10:05 PM EDT) [facility] Neutrophil % 76.6 % [facility] Neutrophil Absolute 6.94(H) 1.70 - 6.10 x10(3)/mc L [facility] Lymph % 15.4 % [facility] Lymphocytes Abs 1.4 0.9 - 3.2 x10(3)/mc L [facility] Monocyte % 6.1 % [facility] Monocyte Abs 0.6 0.3 - 0.9 x10(3)/mc L [facility] Eos % 1.1 % [facility] Eosinophils Abs 0.1 0.0 - 0.4 x10(3)/ L [facility] Basophil % 0.6 % [facility] [...] 0.04 x10(3)/ L [facility] Blood 10/30/2023 10:0 5 PM EDT 10/30/2023 10:12 PM EDT Narrative Resulting Agency Comment Spec In Lab Qamar Gallardo MD HEMATOLOGY ORDERABLE S [facility] [place] [address] * (ABNORMAL) Hemogram (10/30/2023 10:05 PM EDT) White Blood Cell 9.0 4.0 - 9.5 x10(3)/ L [facility] Platelet 211 145 - 357 x10(3)/ L [facility] RDW Standard Deviation 53.6(H) 37.0 - 46.0 fL [facility] RDW coefficient of variation 14.6(H) 11.5 - 14.1 % [facility] Mean Platelet Volume 11.1 7.6 - 12.9 fL [facility] NRBC% auto 0.0 % [facility] NRBC Absolute 0.000 0.000 - 0.000 x10(3)/mc L [facility] Blood 10/30/2023 10:0 5 PM EDT 10/30/2023 10:12 PM EDT Narrative Resulting Agency Comment Spec In Lab Qamar Gallardo MD HEMATOLOGY ORDERABLE S Performing Organization Address City/[facility]/ZIP Co de Phone Number [facility] [place] [address] * Hemoglobin A1c (10/30/2023 10:05 PM EDT) [...] Mellitus, Diabetes Care 2013; 36: Suppl. 1, D59-55 Estimated Average Glucose See note mg/dL [facility] Comment: Estimated Average Glucose not appropriate for patients over 70 years of age. Blood 10/30/2023 10:0 5 PM EDT 10/30/2023 10:12 PM EDT Narrative Resulting Agency Comment Spec In Lab Rosa Cornejo MD CHEMISTRY ORDERABLE S Performing Organization Address City/[facility]/ZIP Co de Phone Number [facility] [place] [address] * Lipid Panel (Reflex Direct LDL) (10/30/2023 10:05 PM EDT) Cholesterol, Total 218 mg/dL [facility] Comment: Desirable: ? <200 mg/dL Borderline High: 200-239 mg/dL Higher: ?>xu=671 mg/dL Triglyceride 46 mg/dL [facility] Comment: Normal: ?<150 mg/dL Borderline High: 150-199 mg/dL High: ?200-499 mg/dL Very High: ? >id=754 mg/dL HDL Cholesterol 64 mg/dL [facility] Comment: Females: High Risk: <50 mg/dL Males: High Risk: <40 mg/dL LDL Cholesterol 145 mg/dL [facility] Comment: Desirable: ? <100 mg/dL Above Desirable: 100-129 mg/dL Borderline High: 130-159 mg/dL High: ?160-189 mg/dL Very High: ? >op=187 mg/dL Lipid Interpretation See Note [facility] [...] ACC/AHA Guidelines (most recently Feliciano et al. [facility] 03/23/22): For individuals with atherosclerotic cardiovascular disease (ASCVD)or LDL >pe=077 mg/dL, use a high-intensity statin (40-80 mg [...] MD CHEMISTRY ORDERABLE S [facility] [place] [address] * TSH Joshua (10/30/2023 10:05 PM EDT) Thyroid Stimulating Hormone 3.35 0.27 - 4.20 mcIU/mL [facility] Comment: Reference Interval (mcIU/mL): Females: ??First Trimester: 0.23-3.88 ??Second Trimester: 0.22-3.90 ??Third Trimester: 0.44-4.66 Blood 10/30/2023 10:0 5 PM EDT 10/30/2023 10:12 PM EDT Narrative Resulting Agency Comment Spec In Lab Rosa Cornejo MD CHEMISTRY ORDERABLE S [facility] [place] [address] * pro-Brain Natriuretic Peptide (10/30/2023 10:05 PM EDT) NT-proBNP 375 <=449 pg/mL [facility] Blood 10/30/2023 10:0 5 PM EDT 10/30/2023 10:12 PM EDT Narrative Resulting Agency Comment Spec In Lab Rosa Cornejo MD CHEMISTRY ORDERABLE S Performing Organization Address [facility]/ZIP Co de Phone Number [facility] [place] [address] * (ABNORMAL) Comprehensive metabolic panel (non-fasting) (10/30/2023 10:05 PM EDT) Pathologist [facility] Glucose 121 65 - 199 mg/dL [facility] [...] MD CHEMISTRY ORDERABLE S Performing Organization Address City/[facility]/ZIP Co de Phone Number [facility] [place] [address] * Phosphorus (10/30/2023 10:05 PM EDT) Phosphorus 3.3 2.5 - 4.5 mg/dL [facility] Blood 10/30/2023 10:0 5 PM EDT 10/30/2023 10:12 PM EDT Narrative Resulting Agency Comment Spec In Lab Rosa Cornejo MD CHEMISTRY ORDERABLE S Performing Organization Address City/[facility]/ZIP Co de Phone Number [facility] [place] [address] * Magnesium (10/30/2023 10:05 PM EDT) Magnesium 0.86 0.69 - 1.07 mmol/L [facility] Blood 10/30/2023 10:0 5 PM EDT 10/30/2023 10:12 PM EDT Narrative Resulting Agency Comment Spec In Lab Rosa Cornejo MD CHEMISTRY ORDERABLE S [facility] [place] [address] * (ABNORMAL) Troponin (10/30/2023 10:05 PM EDT) Troponin-T, High Sensitivity 214(H) <=14 ng/L [facility] [...] troponin value can be found in the [facility] Test Catalog Troponin - [facility] Test Catalog Reference: Fourth Chapman Definition of Myocardial Infarction. Journal of the [place] [employer] 2018;72:7562-6071 Blood 10/30/2023 10:0 5 PM EDT 10/30/2023 10:12 PM EDT Narrative Resulting Agency Comment Spec In Lab Rosa Cornejo MD CHEMISTRY ORDERABLE S [facility] [place] [address] * EKG 12 Lead (10/30/2023 8:21 PM EDT) Ventricular rate 49 BPM MUSE SYSTEM Atrial Rate 49 BPM MUSE SYSTEM P-R Interval 230 ms MUSE SYSTEM QRS Duration 96 ms MUSE SYSTEM Q-T Interval 526 ms MUSE SYSTEM QTC Calculated (Bezet) 475 ms MUSE SYSTEM Calculated P [place] 98 degrees MUSE SYSTEM Calculated R [place] -48 degrees MUSE SYSTEM Calculated T [place] -51 degrees MUSE SYSTEM INTERPRETATION Sinus bradycardia [...] Cornejo MD ECG ORDERABLES Performing Organization Address City/[facility] Co de Phone Number MUSE SYSTEM documented [...] documented as of this encounter Care Teams Information Technology Architect Relationship Specialty Start Date End Date Rosie Mathews MD [address] [place] [id number] PCP - General Family Medicine 11/25/17 11/23/23 documented as of this encounter
--- OUTSIDE RECORDS SUMMARY | 2024-02-03 10:34 | XMS_ITS | Encounter Summary ---
Author Organization [facility] [place] [address] Care Team Providers Care Secretary To Board Of Commissioners Name Role Phone Rosie Mathews MD Primary Care Provider [phone] Reason for Visit * Auth/Cert (Routine) Specialty Diagnoses / Procedures Referred By Contbruce t Referred To Contact Diagnoses Unstable angina Chest pain NSTEMI Procedures CARDIAC CATHETERIZATION Rosa Dewey MD [facility] [address] [facility] Referral ID Status Reason Start Date Expiration Date Visits Re quested Visits Authorized [id number] 1 1 Encounter Details Date Type Department Care Team (Late st Contact Info) Description 11/01/2023 3:33 PM EDT - 11/01/2023 5:03 PM EDT [place] [address] Rosa Dewey MD [facility] [address] [place], [place] [id number] CARDIAC CATHETERIZATION Social History Tobacco Use Types Packs/Day Years Used Date Smoking Tobacco: Former Smokeless Tobacco: Never Alcohol Use Standard Drinks/Week Comments Not Currently 0 (1 standard drink = 0.6 oz pur e alcohol) [facility] Utilities Answer Date Recorded In the [...] for hypertension and hyperlipidemia who presented to [facility] as a transfer from [facility] as a possible STEMI alert with acute onset chest pain. The patient reports that her symptoms initially began on Tuesday when she was walking to [facility] and experienced bilateral arm heaviness while walking with no other symptoms. Then, this afternoon shereports developing bilateral achy shoulder pain and nonradiating substernal left-sided chest pressure that was 7/10 in severity after coming home from [facility]. The patient denies any associated fevers, chills, diaphoresis, lightheadedness/dizziness, syncope/presyncope, dyspnea (either at rest or on exertion), palpitations, orthopnea, or PND. The patient subsequently presented to [facility] as a walk-in for further evaluation. [...] on repeat, her TRU resolved. Cardiology at [facility] was consulted for transfer; the patient was loaded with aspirin 324 mg and ticagrelor 180 mg, started on a heparin drip, and given nitroglycerin with improvement in chest pain. Upon arrival to [facility], the patient was taken directly to the Body Former. Two lesions were discovered: one in the prox RCA (felt to almost be a CARVER HAND but they were able to wire, balloon, [...] dose administered prior to arrival in the director of cardiac cath lab. Recommended anti-platelet/anti-thrombotic regimen: Continue aspirin 81 mg [...] and low lung volumes. Findings similar to vegetable scullion radiograph from CT 10/30/2023. Pending Studies and [...] 10:40 AM Izaiah Meyer MD Cardiology at [place] Arrive at: [facility] [address] [phone] Future Orders Complete By Expires Referral to Cardiac Rehab [[id number] Custom] As directed Process Instructions: If no progress note charted, please enter Clinical details in comments. Scheduling Instructions: Questions: My question or request is: STEMI. Cardiac rehab at [facility]. Referral to Home Health [REF34 Custom] As directed Process Instructions: If no progress note charted, please enter Clinical details in comments. Scheduling Instructions: Comments: Please evaluate Adin Santos for admission to Home Health. [address] [facility] [address] (home) Date of : 1940 Inpatient DOCUMENTATION FOR VNA SERVICES (INCLUDING THOSE PATIENTS WITH MEDICARE COVERAGE REQUIRING HOME VNA SERVICES AND/OR HOSPICE SERVICES) PATIENT'S LOCATION: Adin Santos [address] [facility] [address] (home) Cell: Telephone Information: Cardiac Tech's Name: self In discussion with the attending physician, it is certified that this patient is under their care and that they, or a Nurse Practitioner, Clinical Nurse specialist or Physician Forest Scientist who is working directly with them, had [...] regarding health issues HOME HEALTH CARE AGENCY: [facility] [address] [address] START OF CARE: within 24-48 hours of [...] Rosie Mathews MD [address] / [facility] [address] . All A agencies which cover [...] MD / Dr. Masood Pierson [address] [place] [address] 11/09/23 1:55 PM arrival for 2:10 PM appointment City Constable: Izaiah Meyer MD [address] [place] [phone] , 11/24/2023 10:40 AM Your Inpatient Medical Team at [facility] Name(s) of your inpatient provider(s): Attending physician: Rosa Hugo MD Resident physicians: Emile Robles MD; Elmer Tamez MD If you have non-emergent questions, prior to your follow-up visit call: Tuesday-Tuesday between the hours of 8AM-5PM please call the Cardiology Clinic [phone] to speak with a nurse. All other hours please call the Hospital Director Gift [phone] and ask to speak to the supervisor varnish on-call. Your Primary Care Provider Rosie Mathews MD [phone] For questions regarding this document or issues relating to this hospitalization on the Medical Service, please contact your inpatient physician through the [facility] Director Gift . Issues afterhours and on weekends will be handled by the City Constable staff on-call. Associated attestation - Rosa Hugo [...] Mathews MD / Dr. Masood Pierson [address] [place] [phone] 11/09/23 1:55 PM arrival for 2:10 PM appointment City Constable: Izaiah Meyer MD [address] [place] [address] , 11/24/2023 10:40 AM Your Inpatient Medical Team at [facility] Name(s) of your inpatient provider(s): Attending physician: Rosa Hugo MD Resident physicians: Emile Robles MD; Elmer Tamez MD If you have non-emergent questions, prior to your follow-up visit call: Tuesday-Tuesday between the hours of 8AM-5PM please call the Cardiology Clinic [phone] to speak with a nurse. All other hours please call the Hospital Director Gift [phone] and ask to speak to the supervisor varnish on-call. Your Primary Care Provider Rosie Mathews MD [phone] documented in this encounter Medications at Time [...] for hypertension and hyperlipidemia who presented to [facility] as a transfer from [facility] as a possible STEMI alert with [...] for hypertension and hyperlipidemia who presented to [facility] as a transfer from [facility] as a possible STEMI alert with [...] Resident on Cardiology Service Cardiology S1 (Pager [phone]) Note written in conjunction with Claudio Perla [facility] Medical Student, MS3 Associated attestation - [...] Nirmala Webb - 11/01/2023 11:25 AM EDT Demand Manager Encounter Note Patient Name: Adin Santos : [id number] MR#: [id number] Admit Date: 10/30/2023 5:11 PM Hospital Day 2 days Narrative: Self initiated visit to patient for Spiritual support in a regular unit rounds. Assessment: Patient is in the bathroom at the time of this visit. Not a good time for Manager Wound Care visit. Intervention and Outcome: An attempted visit [...] for hypertension and hyperlipidemia who presented to [facility] as a transfer from [facility] as a possible STEMI alert with [...] and low lung volumes. Findings similar to vegetable scullion radiograph from CT 10/30/2023. Scheduled Medications: [AUG [...] for hypertension and hyperlipidemia who presented to [facility] as a transfer from [facility] as a possible STEMI alert with [...] Resident on Cardiology Service Cardiology S1 (Pager [phone]) Note written in conjunction with Claudio Perla [facility] Medical Student, MS3 Associated attestation - [...] for hypertension and hyperlipidemia who presented to [facility] as a transfer from [facility] as a possible STEMI alert with acute onset chest pain. Active Problems: Active Hospital Problems Diagnosis Unstable angina Resolved Hospital Problems No resolved problems to display. 24 hr events: - Cath'd yesterday with lesion in the proximal RCA (initially thought it was CARVER HAND but they were ableto wire, balloon and [...] and low lung volumes. Findings similar to vegetable scullion radiograph from CT 10/30/2023. TTE (10/30): Interpretation [...] for hypertension and hyperlipidemia who presented to [facility] as a transfer from [facility] as a possible STEMI alert with [...] Resident on Cardiology Service Cardiology S1 (Pager [phone]) Note written in conjunction with Claudio Perla [facility] Medical Student, MS3 Associated attestation - [...] PCP: Rosie Mathews MD PCP phone number: [phone] Date of Admission: 10/30/2023 ( Hospital Day 0 days ) Attending:Rosa Cornejo MD ID: Adin Santos is a 83 y.o. female PMH significant for hypertension and hyperlipidemia who presented to [facility] as a transfer from [facility] as a possible STEMI alert with acute onset chest pain. The patient reports that her symptoms initially began on Tuesday when she was walking to [facility] and experienced bilateral arm heaviness while walking with no other symptoms. Then, this afternoon shereports developing bilateral achy shoulder pain and nonradiating substernal left-sided chest pressure that was 7/10 in severity after coming home from [facility]. The patient denies any associated fevers, chills, diaphoresis, lightheadedness/dizziness, syncope/presyncope, dyspnea (either at rest or on exertion), palpitations, orthopnea, or PND. The patient subsequently presented to [facility] as a walk-in for further evaluation. [...] on repeat, her TRU resolved. Cardiology at [facility] was consulted for transfer; the patient was loaded with aspirin 324 mg and ticagrelor 180 mg, started on a heparin drip, and given nitroglycerin with improvement in chest pain. Upon arrival to [facility], the patient was taken directly to the Body Former. Two lesions were discovered: one in the prox RCA (felt to almost be a CARVER HAND but they were able to wire, balloon, [...] and low lung volumes. Findings similar to vegetable scullion radiograph from CT 10/30/2023. Assessment & Plan: Adin Santos is a 83 y.o. female PMH significant for hypertension and hyperlipidemia who presented to [facility] as a transfer from [facility] as a possible STEMI alert with [...] HTN HLD transferred with chest from [facility]. BP 217/68, HR [address] [...] information for follow-up Home Health & Hospice, [place] [address] TANESHA BOYCE confirmed with [facility] that they will see the patient within [...] N/A Patient is insured through: Primary Insurance: [employer] MANAGED MEDICARE Payor: [employer] MANAGED MEDICARE / Plan: [employer] MANAGED MEDICARE PPO / Product Type: *No [...] in the room. Electrolytes replaced, see MAR. nursery laborer sites remained C/D/I with baseline ecchymosis unchanged. Pt complained of back pain, lidocaine patch given. Right IV infiltrated during infusion, patient is marked with sharpie, IV removed. See flowsheet for I+O's and safety rounding. Patient is able to make needs known and call capps within reach. PLAN MOVING FORWARD: Monitor Tele, control BP, monitor director of cardiac cath lab sites, D/C Planning INDIVIDUALIZED FALL PREVENTION INTERVENTIONS: [...] an outpatient cardiac rehabilitation program at [facility] was discussed. Patient agrees to a referral [...] and above on RA. PT went to director of cardiac cath lab today. Left fem site oozed throughout shift, [...] MOVING FORWARD: Monitor Tele, control BP, monitor director of cardiac cath lab sites, D/C Planning INDIVIDUALIZED FALL PREVENTION INTERVENTIONS: [...] From: Transfer from another hospital Location: [facility] Reason for Hospitalization: chest pain Covid Vaccination Status: 1st, 2nd & booster Past medical History: No past medical history on file. Hospitalizations Within the Past 30 Days: no previous admission in last 30 days Current Decision-Making Capacity: Self If AD's have not been completed the following surrogate would be surrogate decision maker per [place] surrogate decision making law. (Only good for 180 days) Any patient receiving care in [place] must abide by [place] law. The hierarchy for surrogate decision making [...] (i) The agent with financial power of insurance attorney or a conservator appointed in accordance [...] has the electric, gas, oil, or water [employer] threatened to shut off services in your [...] toilet seat Home Address confirmed as: [address] [facility] [address] Social & Family Supports: All names listed below confirmed with patient as current and correct Extended Emergency Contact Information Primary Emergency Contact: Iris Downing Address: [address] [place], [place] [address] [place] [address] Mobile Relation: Child Secondary Emergency Contact: Karen More Address: [address] [facility] Mobile Relation: Child Current Care Provided by: self Provides Primary Care For: no one Caregiver if needed: child(emmanuel), adult Quality of Family relationships: involved, supportive Community Resources being provided currently: other (see comments) (receives [facility] services at home (1xweekly)) Behavioral Health [...] Specific Information: N/A Health/Prescription Coverage: Primary Insurance: [employer] MANAGED MEDICARE Payor: [employer] MANAGED MEDICARE / Plan: [employer] MANAGED MEDICARE PPO / Product Type: *No Product type* / Secondary Insurance: N/A Prescription Coverage: Yes Preferred Pharmacy: [facility] - [place], [place] - [address] [place] [id number] [place] Status: Patient is a : No Primary Care Provider listed: Masood Pierson MD [phone] Patient/Caregiver Goals of Treatment: home when MR Potential Needs for Transition of Care: home health care Agency Referrals: Not Applicable I have met with the patient to: discuss discharge planning needs. provide the [facility], Office of Care Management letter from the R Programmer pertaining to rehab referrals. provide a letter describing our affiliations within the [facility] and educate about their right to choose where referrals are sent. provide a list of Home Health Agencies / Durable Medical Equipment vendors which serve their preferred geographic area. provided patient with [facility] Star Quality Rating handout. They have requested referrals to: [facility] [address] [place] [address] Note routed to a Talent Acquisition Assistant who will communicate referrals to facilities and [...] care planning. * Plan of Care - aMry Sweeney RN - 10/31/2023 5:40 PM EDT [...] results. PO hydralazine added for BP control. nursery laborer sites remain C/D/I, ecchymosis unchanged th roughout shift. See flowsheet for I+O's and safety rounding. Patient is able to make needs known and call capps within reach. PLAN MOVING FORWARD: Monitor Tele, control CP and BP, NPO at MD for cath, monitor director of cardiac cath lab sites, D/C Planning INDIVIDUALIZED FALL PREVENTION INTERVENTIONS: [...] AM EDT Office Visit Cardiology at [address] [place] [address] Izaiah Meyer MD [facility] [place] [address] Scheduled Referrals Name Type Priority Associated Diagnoses [...] 3:46 AM EDT) Neutrophil % 63.3 % [facility] Neutrophil Absolute 5.28 1.70 - 6.10 x10(3)/mc L [facility] Lymph % 15.2 % [facility] Lymphocytes Abs 1.3 0.9 - 3.2 x10(3)/mc L [facility] Monocyte % 16.9 % [facility] Monocyte Abs 1.4(H) 0.3 - 0.9 x10(3)/mc L [facility] Eos % 3.7 % [facility] Eosinophils Abs 0.3 0.0 - 0.4 x10(3)/ L [facility] Basophil % 0.5 % [facility] Baso Absolute 0.0 0.0 - 0.1 x10(3)/mc L [facility] Immature Gran % 0.40 % [facility] Comment: Immature granulocytes(IG's)percentage and absolute count will include metamyelocytes, myelocytes, and promyelocytes. Blood smears from CBCs yielding IG's will be scanned manually for concordance. If this scan disagrees with the automated IG or if promyelocytes are noted, a manual differential will be performed. Immature Gran Absolute 0.03 0.00 - 0.04 x10(3)/mc L [facility] Blood 11/03/2023 3:46 AM EDT 11/03/2023 4:11 AM EDT Narrative Resulting Agency Comment Spec In Lab Qamar Gallardo MD HEMATOLOGY ORDERABLE S [facility] [place] [address] * (ABNORMAL) Hemogram (11/03/2023 3:46 AM EDT) White Blood Cell 8.3 4.0 - 9.5 x10(3)/mc L [facility] Red Blood Cell 3.77(L) 4.00 - 5.21 x10(6)/mc L [facility] Hemoglobin 13.1 11.7 - 15.5 g/dL [facility] Hematocrit 38.0 35.7 - 45.8 % [facility] Mean Cell Volume 100.8(H) 82.6 - 94.4 fL [facility] Mean Cell Hemoglobin 34.7(H) 27.1 - 32.0 pg [facility] Mean Cell Hemoglobin Concentration 34.5 31.7 - 35.0 g/dL [facility] Platelet 181 145 - 357 x10(3)/mc L [facility] RDW Standard Deviation 54.7(H) 37.0 - 46.0 fL [facility] RDW coefficient of variation 14.6(H) 11.5 - 14.1 % [facility] Mean Platelet Volume 11.2 7.6 - 12.9 fL [facility] NRBC% auto 0.0 % [facility] NRBC Absolute 0.000 0.000 - 0.000 x10(3)/mc L [facility] Blood 11/03/2023 3:46 AM EDT 11/03/2023 4:11 AM EDT Narrative Resulting Agency Comment Spec In Lab Qamar Gallardo MD HEMATOLOGY ORDERABLE S Performing Organization Address City/[facility]/ZIP Co de Phone Number [facility] [place] [address] * Phosphorus (11/03/2023 3:46 AM EDT) Pathologist [facility] Phosphorus 3.2 2.5 - 4.5 mg/dL [facility] Comment:result rechecked-KS Blood 11/03/2023 3:46 AM EDT 11/03/2023 4:11 AM EDT Narrative Resulting Agency Comment Spec In Lab Rosa Cornejo MD CHEMISTRY ORDERABLE S Performing Organization Address [facility] Co de Phone Number [facility] [place] [address] * Magnesium (11/03/2023 3:46 AM EDT) [facility] Magnesium 0.90 0.69 - 1.07 mmol/L [facility] Blood 11/03/2023 3:46 AM EDT 11/03/2023 4:11 AM EDT Narrative Resulting Agency Comment Spec In Lab Rosa Cornejo MD CHEMISTRY ORDERABLE S Performing Organization Address [facility] Co de Phone Number [facility] [place] [address] * (ABNORMAL) Basic Metabolic Panel (non-fasting) (11/03/2023 3:46 AM EDT) Pathologist [facility] Glucose 105 65 - 199 mg/dL [facility] Comment:Diabetes: >=200 mg/d L plus symptoms Blood Urea Nitrogen 13 8 - 18 mg/dL [facility] Creatinine 0.83 0.70 - 1.20 mg/dL [facility] Sodium 139 135 - 145 mmol/L [facility] Potassium 4.0 3.5 - 5.0 mmol/L [facility] Comment: Please note: ??Patients with WBC >100,000 may have falsely elevated Potassium levels. ??For accurate Potassium quantification in these patients send serum separator tube (gold top) for subsequent determinations. ??Contact the Clinical Chemistry Laboratory if there are any questions. Chloride 108(H) 98 - 107 mmol/L [facility] Carbon Dioxide 19(L) 22 - 31 mmol/L [facility] Anion Gap 12 5 - 15 mmol/L [facility] Calcium 8.2(L) 8.5 - 10.5 mg/dL [facility] Est Glomerular Filtration Rate 69 >=60 mL/min/1. 73 m?? [facility] Comment: This patient's estimated GFR [...] Lab Rosa Cornejo MD CHEMISTRY ORDERABLE S [facility] [place] [address] * EKG 12 Lead (11/02/2023 12:44 PM EDT) Ventricular rate 83 BPM MUSE SYSTEM Atrial Rate 83 BPM MUSE SYSTEM P-R Interval 216 ms MUSE SYSTEM QRS Duration 90 ms MUSE SYSTEM Q-T Interval 384 ms MUSE SYSTEM QTC Calculated (Bezet) 451 ms MUSE SYSTEM Calculated P [place] 92 degrees MUSE SYSTEM Calculated R [place] -51 degrees MUSE SYSTEM Calculated T [place] -33 degrees MUSE SYSTEM INTERPRETATION Sinus rhythm with 1st degree A-V block with Premature atrial complexes Left axis deviation Moderate voltage criteria for LVH, may be normal variant ( R in aVL , Ifeanyi product ) Anterolatera l infarct (cited on or before 01-NOV-2023) Abnormal ECG When compared with ECG of 01-NOV-2023 22:10, Premature atrial complexes are now Present VT interval has increased Vent. rate has decreased BY ??56 BPM Confirmed by MD Kevin, Esteban ([id number]) on 11/02/2023 1:32:10 PM MUSE SYSTEM 11/02/2023 12:4 4 PM EDT 11/02/2023 1:32 PM EDT Rosa Hugo MD ECG ORDERABLES MUSE SYSTEM * (ABNORMAL) Urinalysis Microscopic Exam (11/02/2023 11:40 AM EDT) RBC, Urine <1 0 - 4 /HPF [facility] Comment: Interpret results with caution, microscopic results are from suboptimal specimen volume WBC, Urine 16(H) 0 - 5 /HPF [facility] Comment: Interpret results with caution, microscopic results are from suboptimal specimen volume Bacteria, Urine Many(A) None /HPF [facility] Squamous Epithelial Cells Raw Data, Urine 10(H) <=4 /HPF [facility] Hyaline Casts, Urine 2 0 - 2 /LPF [facility] Comment: Interpret results with caution, microscopic results are from suboptimal specimen volume Clean Catch Urine 11/02/2023 11:40 AM EDT 11/02/2023 12:05 PM EDT Narrative Resulting Agency Comment Spec In Lab Elmer Tamez MD URINE ORDERABLES [facility] [place] [address] * (ABNORMAL) Urinalysis with reflex Culture (11/02/2023 11:40 AM EDT) Glucose, Urine Dipstick Negative Negative mg/dL [facility] Protein, Urine Dipstick 30(A) Negative mg/dL [facility] Bilirubin, Urine Dipstick Negative Negative mg/dL [facility] Comment: Clinical correlation required for positive Urine Bilirubin results as false positive may occur with some drugs and drug related products. If a false positive is suspected a serum total bilirubin should be considered if clinically indicated. Urobilinogen, Urine Dipstick Normal Normal mg/dL [facility] pH, Urn (dipstick) 5.5 5.0 - 8.0 [facility] Blood, Urine Dipstick Negative Negative mg/dL [facility] Ketone, Urine Dipstick Trace(A) Negative mg/dL [facility] Nitrite, Urine Dipstick Positive(A) Negative [facility] Leukocytes, Urine Dipstick Small(A) Negative [facility] Appearance, Urine Dipstick Cloudy(A) Clear [facility] Specific [place] Urine Automated >=1.030(A) 1.005 - 1.030 [facility] Color, Urine Dipstick Dark Yellow Yellow [facility] Reflex to Culture Yes [facility] Clean Catch Urine 11/02/2023 11:40 AM EDT 11/02/2023 12:04 PM EDT Narrative Resulting Agency Comment Spec In Lab Rosa Hugo MD URINE ORDERABLES [facility] [place] [address] * Respiratory Panel PCR (11/02/2023 10:15 AM EDT) Respiratory Panel Source [employer] Swab [facility] Respiratory Panel PCR Negative Negative [facility] Comment: Respiratory Panels are performed on the [employer], using multiplexed PCR nucleic acid detection. ??Negative results do not preclude respiratory infection and should not be used as the sole basis for diagnosis, treatment or other management decisions. Adenovirus Not Detected Not Detected [facility] Coronavirus HKU1 Not Detected Not Detected [facility] Coronavirus NL63 Not Detected Not Detected [facility] Coronavirus 229E Not Detected Not Detected [facility] Coronavirus OC43 Not Detected Not Detected [facility] SARS-CoV-2 Not Detected Not Detected [facility] Comment: Testing for SARS-CoV-2 (Severe acute respiratory syndrome coronavirus 2) to aid in the diagnosis of COVID-19 is performed using the [employer] Respiratory Panel 2.1 ([employer]) as authorized by the FDA issued Emergency Use Authorization (EUA). This panel also tests for multiple other viral and bacterial pathogens. This assay is intended for In-vitro Diagnostic (IVD) use with nasopharyngeal swabs in viral transport media. The assay is performed based on the instructions for use and additional guidance provided by the FDA. Testing is performed in laboratories within the [facility], each of which is certified under the [...] fact sheets at the following FDA website: https://www.fda.gov/medical-devices/ncrsrtpjnzu-nmyuwhe-5243-fnzld-18-eiaakesvj- use-a bswecshszjftp-hvobnuf-hgznzhg/wmkbz-kxbivnwgklg-xkjs Human Metapneumovirus Not Detected Not Detected [facility] Human Rhinovirus/Enterov irus Not Detected Not Detected [facility] Influenza A Not Detected Not Detected [facility] Influenza B Not Detected Not Detected [facility] Parainfluenza 1 Not Detected Not Detected [facility] Parainfluenza 2 Not Detected Not Detected [facility] Parainfluenza 3 Not Detected Not Detected [facility] Parainfluenza 4 Not Detected Not Detected [facility] Respiratory Syncytial Virus Not Detected Not Detected [facility] Chlamydophila pneumoniae Not Detected Not Detected [facility] Mycoplasma pneumoniae Not Detected Not Detected [facility] Nasopharyngeal Swab 11/02/19 10:15 AM EDT 11/02/2023 10:49 AM EDT Narrative Resulting Agency Comment Spec In Lab Rosa Hugo MD MICROBIOLOGY - GEN ERAL ORDERABLES [facility] [place] [address] * XR Chest One View (11/02/2023 2:51 AM EDT) WORKSTATION ID [id number] RAD Anatomical Region Laterality Modality Chest N/A [...] who have questions please contact the health care information associate that requested your imaging first. ? Electronically signed by: Omaira Tran MD, [facility] ([phone]), at 11/02/2023 4:56 AM Narrative 11/02/2023 4:56 [...] patients who have questions please contactthe health care information associate that requested your imaging first. Electronically signed by: Omaira Tran MD, [facility]([phone]), at 11/02/2023 4:56 AM Rosa Hugo MD IMG DX ORDERABLES * (ABNORMAL) Differential, Automated (11/02/2023 12:35 AM EDT) Neutrophil % 76.5 % [facility] Neutrophil Absolute 7.69(H) 1.70 - 6.10 x10(3)/mc L [facility] Lymph % 8.3 % [facility] Lymphocytes Abs 0.8(L) 0.9 - 3.2 x10(3)/mc L [facility] Monocyte % 12.9 % [facility] Monocyte Abs 1.3(H) 0.3 - 0.9 x10(3)/mc L [facility] Eos % 1.4 % [facility] Eosinophils Abs 0.1 0.0 - 0.4 x10(3)/mc L [facility] Basophil % 0.4 % [facility] Baso Absolute 0.0 0.0 - 0.1 x10(3)/mc L [facility] Immature Gran % 0.50 % [facility] Comment: Immature granulocytes(IG's)percentage and absolute count will include metamyelocytes, myelocytes, and promyelocytes. Blood smears from CBCs yielding IG's will be scanned manually for concordance. If this scan disagrees with the automated IG or if promyelocytes are noted, a manual differential will be performed. Immature Gran Absolute 0.05(H) 0.00 - 0.04 x10(3)/mc L [facility] Blood 11/02/2023 12:3 5 AM EDT 11/02/2023 12:43 AM EDT Narrative Resulting Agency Comment Spec In Lab Qamar Gallardo MD HEMATOLOGY ORDERABLE S [facility] [place] [address] * (ABNORMAL) Hemogram (11/02/2023 12:35 AM EDT) White Blood Cell 10.0(H) 4.0 - 9.5 x10(3)/ L [facility] Red Blood Cell 4.06 4.00 - 5.21 x10(6)/mc L [facility] Hemoglobin 13.8 11.7 - 15.5 g/dL [facility] Hematocrit 39.8 35.7 - 45.8 % [facility] Mean Cell Volume 98.0(H) 82.6 - 94.4 fL [facility] Mean Cell Hemoglobin 34.0(H) 27.1 - 32.0 pg [facility] Mean Cell Hemoglobin Concentration 34.7 31.7 - 35.0 g/dL [facility] Platelet 198 145 - 357 x10(3)/mc L [facility] RDW Standard Deviation 52.1(H) 37.0 - 46.0 fL [facility] RDW coefficient of variation 14.3(H) 11.5 - 14.1 % [facility] Mean Platelet Volume 11.4 7.6 - 12.9 fL [facility] NRBC% auto 0.0 % [facility] NRBC Absolute 0.000 0.000 - 0.000 x10(3)/mc L [facility] Blood 11/02/2023 12:3 5 AM EDT 11/02/2023 12:43 AM EDT Narrative Resulting Agency Comment Spec In Lab Qamar Gallardo MD HEMATOLOGY ORDERABLE S [facility] [place] [address] * (ABNORMAL) Phosphorus (11/02/2023 12:35 AM EDT) Phosphorus 1.6(L) 2.5 - 4.5 mg/dL [facility] Blood 11/02/2023 12:3 5 AM EDT 11/02/2023 12:43 AM EDT Narrative Resulting Agency Comment Spec In Lab Rosa Cornejo MD CHEMISTRY ORDERABLE S Performing Organization Address City/[facility]/ZIP Co de Phone Number [facility] [place] [address] * Magnesium (11/02/2023 12:35 AM EDT) Magnesium 0.87 0.69 - 1.07 mmol/L [facility] Blood 11/02/2023 12:3 5 AM EDT 11/02/2023 12:43 AM EDT Narrative Resulting Agency Comment Spec In Lab Rosa Cornejo MD CHEMISTRY ORDERABLE S Performing Organization Address City/[facility]/ZIP Co de Phone Number [facility] [place] [address] * Basic Metabolic Panel (non-fasting) (11/02/2023 12:35 AM EDT) Glucose 125 65 - 199 mg/dL [facility] Comment:Diabetes: >=200 mg/d L plus symptoms Blood Urea Nitrogen 9 8 - 18 mg/dL [facility] Creatinine 0.83 0.70 - 1.20 mg/dL [facility] Sodium 136 135 - 145 mmol/L [facility] Potassium 3.6 3.5 - 5.0 mmol/L [facility] Comment: Please note: ??Patients with WBC >100,000 may have falsely elevated Potassium levels. ??For accurate Potassium quantification in these patients send serum separator tube (gold top) for subsequent determinations. ??Contact the Clinical Chemistry Laboratory if there are any questions. Chloride 102 98 - 107 mmol/L [facility] Carbon Dioxide 25 22 - 31 mmol/L [facility] Anion Gap 9 5 - 15 mmol/L [facility] Calcium 9.0 8.5 - 10.5 mg/dL [facility] Est Glomerular Filtration Rate 69 >=60 mL/min/1. 73 m?? [facility] Comment: This patient's estimated GFR [...] Lab Rosa Cornejo MD CHEMISTRY ORDERABLE S [facility] [place] [address] * Blood culture (11/02/2023 12:35 AM EDT) Blood Culture No growth at 5 days. [facility] Blood 11/02/2023 12:3 5 AM EDT 11/02/2023 1:55 AM EDT Comment:#2 site ukn Narrative Resulting Agency Comment Spec In Lab Rosa Hugo MD MICROBIOLOGY - BLO OD ORDERABLES Performing Organization Address City/[facility]/ZIP Co de Phone Number [facility] [place] [address] * Blood culture (11/02/2023 12:15 AM EDT) Blood Culture No growth at 5 days. [facility] Blood 11/02/2023 12:1 5 AM EDT 11/02/2023 1:54 AM EDT Comment:#1site unk Narrative Resulting Agency Comment Spec In Lab Rosa Hugo MD MICROBIOLOGY - BLO OD ORDERABLES Performing Organization Address [facility] Co de Phone Number [facility] [place] [address] * EKG 12 Lead (11/01/2023 10:10 PM EDT) Ventricular rate 139 BPM MUSE SYSTEM Atrial Rate 139 BPM MUSE SYSTEM P-R Interval 168 ms MUSE SYSTEM QRS Duration 84 ms MUSE SYSTEM Q-T Interval 286 ms MUSE SYSTEM QTC Calculated (Bezet) 435 ms MUSE SYSTEM Calculated R [place] -59 degrees MUSE SYSTEM Calculated T [place] -27 degrees MUSE SYSTEM INTERPRETATION Mid-RP tachycardia, [...] interpretation Confirmed by fellow MD Bowen Ashley ([id number]) on 11/04/2023 7:57:50 AM Confirmed by MD Carrillo Danette ([id number]) on 11/04/2023 4:32:03 PM MUSE SYSTEM 11/01/2023 10:1 0 PM EDT 11/04/2023 4:32 PM EDT Rosa Cornejo MD ECG ORDERABLES MUSE SYSTEM * (ABNORMAL) Hemogram (11/01/2023 10:06 PM EDT) White Blood Cell 10.4(H) 4.0 - 9.5 x10(3)/mc L [facility] Red Blood Cell 4.11 4.00 - 5.21 x10(6)/mc L [facility] Hemoglobin 14.0 11.7 - 15.5 g/dL [facility] Hematocrit 41.1 35.7 - 45.8 % [facility] Mean Cell Volume 100.0(H) 82.6 - 94.4 fL [facility] Mean Cell Hemoglobin 34.1(H) 27.1 - 32.0 pg [facility] Mean Cell Hemoglobin Concentration 34.1 31.7 - 35.0 g/dL [facility] Platelet 197 145 - 357 x10(3)/mc L [facility] RDW Standard Deviation 54.0(H) 37.0 - 46.0 [facility] RDW coefficient of variation 14.6(H) 11.5 - 14.1 % [facility] Mean Platelet Volume 11.2 7.6 - 12.9 [facility] NRBC% auto 0.0 % [facility] NRBC Absolute 0.000 0.000 - 0.000 x10(3)/mc L [facility] Blood 11/01/2023 10:0 6 PM EDT 11/01/2023 10:22 PM EDT Narrative Resulting Agency Comment Spec In Lab Rosa Hugo MD HEMATOLOGY ORDERAB LES [facility] [place] [id number] * POCT Glucose (11/01/2023 5:59 PM EDT) Glucose, POC 104 65 - 199 mg/dL [facility] Comment: Supplemental ranges: <140 mg/dL before meals <180 mg/dL all other times of the day Blood 11/01/2023 5:59 PM EDT 11/01/2023 5:59 PM EDT Rosa Hugo MD POINT OF CARE TEST ORDERABLES [facility] [place] [address] * POCT Glucose (11/01/2023 5:35 PM EDT) Glucose, POC 85 65 - 199 mg/dL [facility] Comment: Supplemental ranges: <140 mg/dL before meals <180 mg/dL all other times of the day Blood 11/01/2023 5:35 PM EDT 11/01/2023 5:35 PM EDT Rosa Hugo MD POINT OF CARE TEST ORDERABLES [facility] [place] [address] * EKG 12 Lead (11/01/2023 3:22 PM EDT) Ventricular rate 59 BPM MUSE SYSTEM Atrial Rate 59 BPM MUSE SYSTEM P-R Interval 220 ms MUSE SYSTEM QRS Duration 94 ms MUSE SYSTEM Q-T Interval 428 ms MUSE SYSTEM QTC Calculated (Bezet) 423 ms MUSE SYSTEM Calculated P [place] 76 degrees MUSE SYSTEM Calculated R [place] -50 degrees MUSE SYSTEM Calculated T [place] -59 degrees MUSE SYSTEM INTERPRETATION Sinus bradycardia [...] Modality Other Narrative 11/02/2023 4:57 PM EDT ?[facility] ? Cardiac Catheterization/Intervention Report ? Patient Name: Adin Santos. ? Procedure Date: 11/01/2023 ? A #: [id number] ? Primary Physician: Rosa Dewey I ? Case #: [id number] ? File Name: [id number] ? Catheterization Order Number: [id number] ? [facility] ? Final Report [place], [place] ? Patient Name: ? Adin M. Goguen ?ID#: ?[id number] ? : ?1940 ? Procedure Date: ? [...] was designated as ASA Class III. The [facility] clinical ?frailty scale is 4: Vulnerable. ? [...] procedure was Urgent. The indication for ?the director of cardiac cath lab visit is ACS greater than 24 hrs. [...] ??A premounted ? 3.50 x 15 mm [place] (RADHA) was deployed with a maximum ? [...] ? A premounted 3.50 x 15 mm [place] (RADHA) was deployed ? with a maximum [...] dose administered prior to arrival in the director of cardiac cath lab. ?Recommended anti-platelet/anti-thrombotic regimen: ?Continue aspirin 81 mg daily for indefinitely. ?Continue clopidogrel 75 mg daily for 12 months then stop. ?These recommendations are made at the time of the intervention. Patient ?and provider preferences or a changing clinical situation may require ?modification of this regimen. Consult [facility] Interventional Cardiology for ?questions. ?The [...] Procedure Note Rosa Dewey MD - 12/12/2023 [facility] Cardiac Catheterization/Intervention Report Patient Name: Adin Santos Procedure Date: 11/01/2023 A #: [id number] Primary Physician: Rosa Dewey I Case #: [id number] File Name: [id number] Catheterization Order Number: [id number] [facility] FinalReport [place], [place] Patient Name: Adin Santos ID#:[id number] :1940 Procedure Date: November 01, 2023 Case [...] diagnostic procedure was Urgent. The indicationfor the director of cardiac cath lab visit is ACS greater than 24 hrs. [...] atmospheres. Apremounted 3.50 x 15 mm [place] (RADHA) was deployed with amaximum inflation pressure [...] The lesion was predilated with a 3.00mm [id number] MM balloon with a maximum inflation pressure of 14atmospheres. A premounted 3.50 x 15 mm [place] (RADHA) wasdeployed with a maximum inflation pressure [...] dose administered prior to arrival in the director of cardiac cath lab. Recommended anti-platelet/anti-thrombotic regimen: Continue aspirin 81 mg daily for indefinitely. Continue clopidogrel 75 mg daily for 12 months then stop. These recommendations are made at the time of the intervention.Patient and provider preferences or a changing clinical situation mayrequire modification of this regimen. Consult [facility] Interventional Cardiologyfor questions. The 1 [...] angiography, stent insertion-coronary and IVUS # coronary. oRsa Dewey M.D. Electronically Signed by: Rosa Dewey M.D. Report Finalized: 11/02/2023 16:51 Report Last Ammended: 12/12/2023 10:28 Rosa Cornejo MD CARDIAC CATH ORDERA BLES * POCT Glucose (11/01/2023 7:06 AM EDT) Pathologist [facility] Glucose, POC 93 65 - 199 mg/dL [facility] Comment: Supplemental ranges: <140 mg/dL before meals <180 mg/dL all other times of the day Blood 11/01/2023 7:06 AM EDT 11/01/2023 7:06 AM EDT Jean Laboy MD POINT OF CARE TEST O RDERABLES [facility] [place] [address] * (ABNORMAL) Differential, Automated (11/01/2023 3:09 AM EDT) Neutrophil % 63.9 % [facility] Neutrophil Absolute 5.54 1.70 - 6.10 x10(3)/mc L [facility] Lymph % 20.0 % [facility] Lymphocytes Abs 1.7 0.9 - 3.2 x10(3)/mc L [facility] Monocyte % 11.9 % [facility] Monocyte Abs 1.0(H) 0.3 - 0.9 x10(3)/ L [facility] Eos % 3.2 % [facility] Eosinophils Abs 0.3 0.0 - 0.4 x10(3)/ L [facility] Basophil % 0.5 % [facility] Baso Absolute 0.0 0.0 - 0.1 x10(3)/ L [facility] Immature Gran % 0.50 % [facility] Comment: Immature granulocytes(IG's)percentage and absolute count will include metamyelocytes, myelocytes, and promyelocytes. Blood smears from CBCs yielding IG's will be scanned manually for concordance. If this scan disagrees with the automated IG or if promyelocytes are noted, a manual differential will be performed. Immature Gran Absolute 0.04 0.00 - 0.04 x10(3)/[facility] Blood 11/01/2023 3:09 AM EDT 11/01/2023 3:29 AM EDT Narrative Resulting Agency Comment Spec In Lab Qamar Gallardo MD HEMATOLOGY ORDERABLE S [facility] [place] [address] * (ABNORMAL) Hemogram (11/01/2023 3:09 AM EDT) White Blood Cell 8.7 4.0 - 9.5 x10(3)/ L [facility] Red Blood Cell 3.72(L) 4.00 - 5.21 x10(6)/[facility] Hemoglobin 12.5 11.7 - 15.5 g/dL [facility] Hematocrit 36.8 35.7 - 45.8 % [facility] Mean Cell Volume 98.9(H) 82.6 - 94.4 fL [facility] Mean Cell Hemoglobin 33.6(H) 27.1 - 32.0 pg [facility] Mean Cell Hemoglobin Concentration 34.0 31.7 - 35.0 g/dL [facility] Platelet 184 145 - 357 x10(3)/mc L [facility] RDW Standard Deviation 53.5(H) 37.0 - 46.0 fL [facility] RDW coefficient of variation 14.6(H) 11.5 - 14.1 % [facility] Mean Platelet Volume 11.3 7.6 - 12.9 fL [facility] NRBC% auto 0.0 % [facility] NRBC Absolute 0.000 0.000 - 0.000 x10(3)/mc L [facility] Blood 11/01/2023 3:09 AM EDT 11/01/2023 3:29 AM EDT Narrative Resulting Agency Comment Spec In Lab Qamar Gallardo MD HEMATOLOGY ORDERABLE S [facility] [place] [address] * Phosphorus (11/01/2023 3:09 AM EDT) Phosphorus 2.5 2.5 - 4.5 mg/dL [facility] Blood 11/01/2023 3:09 AM EDT 11/01/2023 3:29 AM EDT Narrative Resulting Agency Comment Spec In Lab Rosa Cornejo MD CHEMISTRY ORDERABLE S [facility] [place] [address] * Magnesium (11/01/2023 3:09 AM EDT) Magnesium 0.82 0.69 - 1.07 mmol/L [facility] Blood 11/01/2023 3:09 AM EDT 11/01/2023 3:29 AM EDT Narrative Resulting Agency Comment Spec In Lab Rosa Cornejo MD CHEMISTRY ORDERABLE S [facility] [place] [address] * (ABNORMAL) Basic Metabolic Panel (non-fasting) (11/01/2023 3:09 AM EDT) Glucose 100 65 - 199 mg/dL [facility] Comment:Diabetes: >=200 mg/d L plus symptoms Blood Urea Nitrogen 14 8 - 18 mg/dL [facility] Creatinine 0.83 0.70 - 1.20 mg/dL [facility] Sodium 137 135 - 145 mmol/L [facility] Potassium 3.4(L) 3.5 - 5.0 mmol/L [facility] Comment: Please note: ??Patients with WBC >100,000 may have falsely elevated Potassium levels. ??For accurate Potassium quantification in these patients send serum separator tube (gold top) for subsequent determinations. ??Contact the Clinical Chemistry Laboratory if there are any questions. Chloride 105 98 - 107 mmol/L [facility] Carbon Dioxide 24 22 - 31 mmol/L [facility] Anion Gap 8 5 - 15 mmol/L [facility] Calcium 8.6 8.5 - 10.5 mg/dL [facility] Est Glomerular Filtration Rate 69 >=60 mL/min/1. 73 m?? [facility] Comment: This patient's estimated GFR [...] MD CHEMISTRY ORDERABLE S Performing Organization Address City/[facility]/ZIP Co de Phone Number [facility] [place] [address] * (ABNORMAL) Troponin (10/31/2023 2:46 PM EDT) Troponin-T, High Sensitivity 544(H) <=14 ng/L [facility] Comment: This patient's troponin T [...] troponin value can be found in the [facility] Laboratory Test Catalog Troponin - [facility] Laboratory Test Catalog Reference: Fourth [place] Definition of Myocardial Infarction. Journal of the [place] [employer] 2018;72:7064-0761 Blood 10/31/2023 2:46 PM EDT 10/31/2023 2:55 PM EDT Narrative Resulting Agency Comment Spec In Lab Jean Laboy MD CHEMISTRY ORDERABLES Performing Organization Address City/[facility]/ZIP Co de Phone Number [facility] [place] [address] * EKG 12 Lead (10/31/2023 1:07 PM EDT) Ventricular rate 54 BPM MUSE SYSTEM Atrial Rate 54 BPM MUSE SYSTEM P-R Interval 218 ms MUSE SYSTEM QRS Duration 92 ms MUSE SYSTEM Q-T Interval 540 ms MUSE SYSTEM QTC Calculated (Bezet) 512 ms MUSE SYSTEM Calculated P [place] 85 degrees MUSE SYSTEM Calculated R [place] -44 degrees MUSE SYSTEM Calculated T [place] -69 degrees MUSE SYSTEM INTERPRETATION Sinus bradycardia [...] (ABNORMAL) Troponin (10/31/2023 11:37 AM EDT) Pathologist [facility] Troponin-T, High Sensitivity 580(H) <=14 ng/L [facility] Comment: This patient's troponin T [...] troponin value can be found in the [facility] Laboratory Test Catalog Troponin - [facility] Laboratory Test Catalog Reference: Fourth [place] Definition of Myocardial Infarction. Journal of the [place] [employer] 2018;72:2629-4703 Blood 10/31/2023 11:3 7 AM EDT 10/31/2023 11:50 AM EDT Narrative Resulting Agency Comment Spec In Lab Rosa Cornejo MD CHEMISTRY ORDERABLE S [facility] [place] [address] * ECHO COMPLETE (10/31/2023 8:52 AM EDT) Anatomical Region Laterality Modality Cardiac Other 10/31/2023 7:57 AM EDT Narrative 10/31/2023 9:45 AM EDT [address] [place] [address] ? Echocardiogram Report Name: TOM ADIN Dorene ? Study Date: 10/31/2023 07:57 AMBP: 106/76 mmHg ? Patient Location: [address] : 1940 ? Height: 163 cm ? Account: [id number] Age: 83 yrs ? Weight: 76 kg Gender: Female ?BSA: 1.8 m2 Ordering Physician: ROSA DEWEY Referring Physician: OMAIRA GIRON Performed By: HAFSA Carmichael Reason For Study: STEMI Interpreting Fellow: Raymond Warren. Exam Location: [facility]. Interpretation Summary -The left ventricle [...] is no prior echocardiogram for comparison. Procedure Complete-64046. Satisfactory quality. There is sinus bradycardia. Left [...] Note Edgard Wang MD - 10/31/2023 [address] [place] [address] Echocardiogram Report Name: ADIN SANTOS Study Date: 407:57 AMBP: 106/76 mmHg Patient Location: [address] : 1940 Height: 163 cm Account: [id number] Age: 83 yrs Weight: 76 kg Gender: Female BSA: 1.8 m2 Ordering Physician: ROSA DEWEY Referring Physician: OMAIRA GIRON Performed By: HAFSA Carmichael Reason For Study: STEMI Interpreting Fellow: Raymond Warren. Exam Location: [facility]. Interpretation Summary -The left ventricle [...] is no prior echocardiogram for comparison. Procedure Complete-76141. Satisfactory quality. There is sinus bradycardia. Left [...] * (ABNORMAL) Troponin (10/31/2023 8:51 AM EDT) [facility] Troponin-T, High Sensitivity 571(H) <=14 ng/L [facility] Comment: This patient's troponin T [...] troponin value can be found in the [facility] Laboratory Test Catalog Troponin - [facility] Laboratory Test Catalog Reference: Fourth [place] Definition of Myocardial Infarction. Journal of the [place] [employer] 2018;72:7597-6629 Blood 10/31/2023 8:51 AM EDT 10/31/2023 9:12 AM EDT Narrative Resulting Agency Comment Spec In Lab Rosa Cornejo MD CHEMISTRY ORDERABLE S Performing Organization Address [facility] Co de Phone Number [facility] [place] [address] * CARDIAC CATHETERIZATION (10/31/2023 8:10 AM EDT) Anatomical Region Laterality Modality Other Narrative 11/07/2023 9:42 AM EDT ?[facility] ? Cardiac Catheterization/Intervention Report ? Patient Name: Adin Santos ? Procedure Date: 10/30/2023 ? A #: [id number] ? Primary Physician: Rosa Dewey I ? Case #: [id number] ? File Name: [id number] ? Catheterization Order Number: [id number] ? [facility] ? Final Report [place], [place] ? Patient Name: ? Adin M. Goguen ?ID#: ?[id number] ? : ?1940 ? Procedure Date: ? [...] was designated as ASA Class III. The [facility] clinical frailty scale ?is 5: Mildly Frail. [...] procedure was Emergent. The indication for ?the director of cardiac cath lab visit is ACS less than or equal [...] A premounted 4.00 x 38 mm Andrea Reading (RADHA) was deployed ? with a maximum [...] dose administered prior to arrival in the director of cardiac cath lab. ?Recommended anti-platelet/anti-thrombotic regimen: ?Continue aspirin 81 mg daily for 12 months then stop. ?Continue clopidogrel 75 mg daily for indefinitely. ?These recommendations are made at the time of the intervention. Patient ?and provider preferences or a changing clinical situation may require ?modification of this regimen. Consult [facility] Interventional Cardiology for ?questions. ? [...] Procedure Note Rosa Dewey MD - 12/05/2023 [facility] Cardiac Catheterization/Intervention Report Patient Name: Adin Santos Procedure Date: 10/30/2023 A #: [id number] Primary Physician: Rosa Dewey I Case #: [id number] File Name: [id number] Catheterization Order Number: [id number] [facility] FinalReport [place], [place] Patient Name: Adin Santos ID#:[id number] :1940 Procedure Date: October 30, 2023 Case [...] was designated as ASA Class III. The [facility] clinical frailtyscale is 5: Mildly Frail. Diagnostic Tests: Electrocardiography: EKG was assessed by ECG. EKG was Abnormal. EKG showed STDeviation >= 0.5 mm, other abnormality and dynamic EKG changes. Medications Prior to Procedure: Aspirin, Angiotensin II Receptor Rodrick, Beta Rodrick andStatin. Indications for Diagnostic Cath: The priority of the diagnostic procedure was Emergent. Theindication for the director of cardiac cath lab visit is ACS less than or equal [...] The priority for the procedure was Emergent.The [facility] indication for the procedure was STEMI-Immediate PCI [...] A premounted 4.00 x 38 mm Andrea Reading (RADHA) wasdeployed with a maximum inflation pressure [...] dose administered prior to arrival in the director of cardiac cath lab. Recommended anti-platelet/anti-thrombotic regimen: Continue aspirin 81 mg daily for 12 months then stop. Continue clopidogrel 75 mg daily for indefinitely. These recommendations are made at the time of the intervention.Patient and provider preferences or a changing clinical situation mayrequire modification of this regimen. Consult [facility] Interventional Cardiologyfor questions. Conclusions: * [...] * (ABNORMAL) Troponin (10/31/2023 4:21 AM EDT) [facility] Troponin-T, High Sensitivity 457(H) <=14 ng/L [facility] Comment: This patient's troponin T [...] troponin value can be found in the [facility] Laboratory Test Catalog Troponin - [facility] Laboratory Test Catalog Reference: Fourth [place] Definition of Myocardial Infarction. Journal of the [place] [employer] 2018;72:7440-6246 Blood 10/31/2023 4:21 AM EDT 10/31/2023 4:30 AM EDT Narrative Resulting Agency Comment Spec In Lab Rosa Cornejo MD CHEMISTRY ORDERABLE S Performing Organization Address City/State/[facility] Co de Phone Number [facility] [place] [address] * (ABNORMAL) Differential, Automated (10/31/2023 3:05 AM EDT) Neutrophil % 71.7 % [facility] Neutrophil Absolute 8.21(H) 1.70 - 6.10 x10(3)/mc L [facility] Lymph % 16.9 % [facility] Lymphocytes Abs 1.9 0.9 - 3.2 x10(3)/mc L [facility] Monocyte % 9.4 % [facility] Monocyte Abs 1.1(H) 0.3 - 0.9 x10(3)/mc L [facility] Eos % 1.3 % [facility] Eosinophils Abs 0.2 0.0 - 0.4 x10(3)/mc L [facility] Basophil % 0.4 % [facility] Baso Absolute 0.0 0.0 - 0.1 x10(3)/mc L [facility] Immature Gran % 0.30 % [facility] Comment: Immature granulocytes(IG's)percentage and absolute count will include metamyelocytes, myelocytes, and promyelocytes. Blood smears from CBCs yielding IG's will be scanned manually for concordance. If this scan disagrees with the automated IG or if promyelocytes are noted, a manual differential will be performed. Immature Gran Absolute 0.04 0.00 - 0.04 x10(3)/ L [facility] Blood 10/31/2023 3:05 AM EDT 10/31/2023 3:13 AM EDT Narrative Resulting Agency Comment Spec In Lab Qamar Gallardo MD HEMATOLOGY ORDERABLE S [facility] [place] [address] * (ABNORMAL) Hemogram (10/31/2023 3:05 AM EDT) White Blood Cell 11.5(H) 4.0 - 9.5 x10(3)/ L [facility] Red Blood Cell 3.75(L) 4.00 - 5.21 x10(6)/mc L [facility] Hemoglobin 12.6 11.7 - 15.5 g/dL [facility] Hematocrit 37.1 35.7 - 45.8 % [facility] Mean Cell Volume 98.9(H) 82.6 - 94.4 fL [facility] Mean Cell Hemoglobin 33.6(H) 27.1 - 32.0 pg [facility] Mean Cell Hemoglobin Concentration 34.0 31.7 - 35.0 g/dL [facility] Platelet 206 145 - 357 x10(3)/mc L [facility] RDW Standard Deviation 53.4(H) 37.0 - 46.0 fL [facility] RDW coefficient of variation 14.6(H) 11.5 - 14.1 % [facility] Mean Platelet Volume 11.1 7.6 - 12.9 fL [facility] NRBC% auto 0.0 % [facility] NRBC Absolute 0.000 0.000 - 0.000 x10(3)/mc L [facility] Blood 10/31/2023 3:05 AM EDT 10/31/2023 3:13 AM EDT Narrative Resulting Agency Comment Spec In Lab Qamar Gallardo MD HEMATOLOGY ORDERABLE S Performing Organization Address [facility] de Phone Number [facility] [place] [address] * (ABNORMAL) APTT (10/31/2023 3:05 AM EDT) Partial Thromboplastin Time 67(H) 25 - 37 sec [facility] Comment: The PTT is NOT [...] Performing Organization Address [facility] de Phone Number [facility] [place] [address] * (ABNORMAL) Prothrombin Time (10/31/2023 3:05 AM EDT) Prothrombin Time 12.6(H) 9.4 - 12.5 sec [facility] International Normalization Ratio 1.1 [facility] Comment: An INR <2.0 indicates [...] Lab Rosa Cornejo MD HEMATOLOGY ORDERABL ES [facility] [place] [address] * (ABNORMAL) Differential, Automated (10/31/2023 1:37 AM EDT) Neutrophil % 71.1 % [facility] Neutrophil Absolute 7.53(H) 1.70 - 6.10 x10(3)/mc L [facility] Lymph % 18.0 % [facility] Lymphocytes Abs 1.9 0.9 - 3.2 x10(3)/ L [facility] Monocyte % 8.7 % [facility] Monocyte Abs 0.9 0.3 - 0.9 x10(3)/mc L [facility] Eos % 1.6 % [facility] Eosinophils Abs 0.2 0.0 - 0.4 x10(3)/mc L [facility] Basophil % 0.4 % [facility] Baso Absolute 0.0 0.0 - 0.1 x10(3)/mc L [facility] Immature Gran % 0.20 % [facility] Comment: Immature granulocytes(IG's)percentage and absolute count will include metamyelocytes, myelocytes, and promyelocytes. Blood smears from CBCs yielding IG's will be scanned manually for concordance. If this scan disagrees with the automated IG or if promyelocytes are noted, a manual differential will be performed. Immature Gran Absolute 0.02 0.00 - 0.04 x10(3)/mc L [facility] Blood 10/31/2023 1:37 AM EDT 10/31/2023 1:46 AM EDT Narrative Resulting Agency Comment Spec In Lab Qamar Gallardo MD HEMATOLOGY ORDERABLE S [facility] [place] [address] * (ABNORMAL) Hemogram (10/31/2023 1:37 AM EDT) White Blood Cell 10.6(H) 4.0 - 9.5 x10(3)/mc L [facility] Red Blood Cell 3.78(L) 4.00 - 5.21 x10(6)/mc L [facility] Hemoglobin 13.0 11.7 - 15.5 g/dL [facility] Hematocrit 37.9 35.7 - 45.8 % [facility] Mean Cell Volume 100.3(H) 82.6 - 94.4 fL [facility] Mean Cell Hemoglobin 34.4(H) 27.1 - 32.0 pg [facility] Mean Cell Hemoglobin Concentration 34.3 31.7 - 35.0 g/dL [facility] Platelet 204 145 - 357 x10(3)/mc L [facility] RDW Standard Deviation 54.3(H) 37.0 - 46.0 fL [facility] RDW coefficient of variation 14.6(H) 11.5 - 14.1 % [facility] Mean Platelet Volume 11.1 7.6 - 12.9 fL [facility] NRBC% auto 0.0 % [facility] NRBC Absolute 0.000 0.000 - 0.000 x10(3)/mc L [facility] Blood 10/31/2023 1:37 AM EDT 10/31/2023 1:46 AM EDT Narrative Resulting Agency Comment Spec In Lab Qamar Gallardo MD HEMATOLOGY ORDERABLE S [facility] [place] [address] * Phosphorus (10/31/2023 1:37 AM EDT) Phosphorus 3.2 2.5 - 4.5 mg/dL [facility] Blood 10/31/2023 1:37 AM EDT 10/31/2023 1:46 AM EDT Narrative Resulting Agency Comment Spec In Lab Rosa Cornejo MD CHEMISTRY ORDERABLE S Performing Organization Address City/[facility]/ZIP Co de Phone Number [facility] [place] [address] * Magnesium (10/31/2023 1:37 AM EDT) Magnesium 0.83 0.69 - 1.07 mmol/L [facility] Blood 10/31/2023 1:37 AM EDT 10/31/2023 1:46 AM EDT Narrative Resulting Agency Comment Spec In Lab Rosa Cornejo MD CHEMISTRY ORDERABLE S Performing Organization Address City/[facility]/ZIP Co de Phone Number [facility] [place] [address] * Basic Metabolic Panel (non-fasting) (10/31/2023 1:37 AM EDT) Glucose 114 65 - 199 mg/dL [facility] Comment:Diabetes: >=200 mg/d L plus symptoms Blood Urea Nitrogen 13 8 - 18 mg/dL [facility] Creatinine 0.81 0.70 - 1.20 mg/dL [facility] Sodium 140 135 - 145 mmol/L [facility] Potassium 3.9 3.5 - 5.0 mmol/L [facility] Comment: Please note: ??Patients with WBC >100,000 may have falsely elevated Potassium levels. ??For accurate Potassium quantification in these patients send serum separator tube (gold top) for subsequent determinations. ??Contact the Clinical Chemistry Laboratory if there are any questions. Chloride 107 98 - 107 mmol/L [facility] Carbon Dioxide 25 22 - 31 mmol/L [facility] Anion Gap 8 5 - 15 mmol/L [facility] Calcium 8.6 8.5 - 10.5 mg/dL [facility] Est Glomerular Filtration Rate 72 >=60 mL/min/1. 73 m?? [facility] Comment: This patient's estimated GFR [...] Lab Rosa Cornejo MD CHEMISTRY ORDERABLE S [facility] [place] [address] * (ABNORMAL) Troponin (10/31/2023 1:37 AM EDT) Troponin-T, High Sensitivity 329(H) <=14 ng/L [facility] Comment: This patient's troponin T [...] troponin value can be found in the [facility] Laboratory Test Catalog Troponin - [facility] Laboratory Test Catalog Reference: Fourth [place] Definition of Myocardial Infarction. Journal of the [place] [employer] 2018;72:1455-7976 Blood 10/31/2023 1:37 AM EDT 10/31/2023 1:46 AM EDT Narrative Resulting Agency Comment Spec In Lab Rosa Cornejo MD CHEMISTRY ORDERABLE S Performing Organization Address City/[facility]/[place] [address] * EKG 12 Lead (10/31/2023 1:20 AM EDT) Ventricular rate 52 BPM MUSE SYSTEM Atrial Rate 52 BPM MUSE SYSTEM P-R Interval 224 ms MUSE SYSTEM QRS Duration 108 ms MUSE SYSTEM Q-T Interval 544 ms MUSE SYSTEM QTC Calculated (Bezet) 505 ms MUSE SYSTEM Calculated P [place] 90 degrees MUSE SYSTEM Calculated R [place] -57 degrees MUSE SYSTEM Calculated T [place] -63 degrees MUSE SYSTEM INTERPRETATION Sinus bradycardia with 1st degree A-V block Pulmonary disease pattern Left anterior fascicular block Moderate voltage criteria for LVH, may be normal variant ( R in aVL , [place] product ) T wave abnormality, consider inferior [...] (Bezet) 497 ms MUSE SYSTEM Calculated P [place] 75 degrees MUSE SYSTEM Calculated R [place] -53 degrees MUSE SYSTEM Calculated T [place] -57 degrees MUSE SYSTEM INTERPRETATION Sinus bradycardia with 1st degree A-V block Left anterior fascicular block Moderate voltage criteria for LVH, may be normal variant ( R in aVL , [place] product ) T wave abnormality, consider inferior [...] View (10/30/2023 10:10 PM EDT) WORKSTATION ID [id number] DH RAD Anatomical Region Laterality Modality Chest [...] and low lung volumes. Findings similar to vegetable scullion radiograph from CT 10/30/2023. Thank you for letting us participate in the care of this patient. ??If you are a health care provider and have any questions regarding this report, please contact the number below. ??For patients who have questions please contact the health care information associate that requested your imaging first. ? Electronically signed by: Wilson Mccartney MD, [facility] ([phone]), at 10/30/2023 10:32 PM Narrative 10/30/2023 10:32 [...] and low lung volumes. Findings similar to vegetable scullion radiograph from CT 10/30/2023. Thank you for letting us participate in the care of this patient. If youare a health care provider and have any questions regarding this report,please contact the number below. For patients who have questions please contactthe health care information associate that requested your imaging first. Rosa Cornejo MD IMG DX ORDERABLES * Green Tube HOLD (10/30/2023 10:05 PM EDT) [facility] Green Hold Sample in lab. [facility] Blood Venous Draw / Unknown 10/30/2023 10:05 PM EDT 10/30/2023 10:13 PM EDT Qamar Gallardo MD CHEMISTRY ORDERABLES [facility] [place] [address] * (ABNORMAL) Differential, Automated (10/30/2023 10:05 PM EDT) Pathologist [facility] Neutrophil % 76.6 % [facility] Neutrophil Absolute 6.94(H) 1.70 - 6.10 x10(3)/mc L [facility] Lymph % 15.4 % [facility] Lymphocytes Abs 1.4 0.9 - 3.2 x10(3)/mc L [facility] Monocyte % 6.1 % [facility] Monocyte Abs 0.6 0.3 - 0.9 x10(3)/mc L [facility] Eos % 1.1 % [facility] Eosinophils Abs 0.1 0.0 - 0.4 x10(3)/mc L [facility] Basophil % 0.6 % [facility] Baso Absolute 0.0 0.0 - 0.1 x10(3)/mc L [facility] Immature Gran % 0.20 % [facility] Comment: Immature granulocytes(IG's)percentage and absolute count will include metamyelocytes, myelocytes, and promyelocytes. Blood smears from CBCs yielding IG's will be scanned manually for concordance. If this scan disagrees with the automated IG or if promyelocytes are noted, a manual differential will be performed. Immature Gran Absolute 0.02 0.00 - 0.04 x10(3)/ L [facility] Blood 10/30/2023 10:0 5 PM EDT 10/30/2023 10:12 PM EDT Narrative Resulting Agency Comment Spec In Lab Qamar Gallardo MD HEMATOLOGY ORDERABLE S Performing Organization Address City/State/[facility] Co de Phone Number [facility] [place] [address] * (ABNORMAL) Hemogram (10/30/2023 10:05 PM EDT) White Blood Cell 9.0 4.0 - 9.5 x10(3)/ L [facility] Red Blood Cell 3.96(L) 4.00 - 5.21 x10(6)/mc L [facility] Hemoglobin 13.3 11.7 - 15.5 g/dL [facility] Hematocrit 39.1 35.7 - 45.8 % [facility] Mean Cell Volume 98.7(H) 82.6 - 94.4 fL [facility] Mean Cell Hemoglobin 33.6(H) 27.1 - 32.0 pg [facility] Mean Cell Hemoglobin Concentration 34.0 31.7 - 35.0 g/dL [facility] Platelet 211 145 - 357 x10(3)/mc L [facility] RDW Standard Deviation 53.6(H) 37.0 - 46.0 fL [facility] RDW coefficient of variation 14.6(H) 11.5 - 14.1 % [facility] Mean Platelet Volume 11.1 7.6 - 12.9 fL [facility] NRBC% auto 0.0 % [facility] NRBC Absolute 0.000 0.000 - 0.000 x10(3)/mc L [facility] Blood 10/30/2023 10:0 5 PM EDT 10/30/2023 10:12 PM EDT Narrative Resulting Agency Comment Spec In Lab Qamar Gallardo MD HEMATOLOGY ORDERABLE S Performing Organization Address City/[facility]/ZIP Co de Phone Number [facility] [place] [address] * Hemoglobin A1c (10/30/2023 10:05 PM EDT) Hemoglobin A1c 5.5 4.3 - 5.6 % [facility] Comment: Reference Range: 4.3 - [...] [id number] Estimated Average Glucose See note mg/dL [facility] Comment: Estimated Average Glucose not appropriate for patients over 70 years of age. Blood 10/30/2023 10:0 5 PM EDT 10/30/2023 10:12 PM EDT Narrative Resulting Agency Comment Spec In Lab Rosa Cornejo MD CHEMISTRY ORDERABLE S [facility] [place] [address] * Lipid Panel (Reflex Direct LDL) (10/30/2023 10:05 PM EDT) [facility] Cholesterol, Total 218 mg/dL Dorene THURMAN [facility] Comment: Desirable: ? <200 mg/dL Borderline High: 200-239 mg/dL Higher: ?>xn=040 mg/dL Triglyceride 46 mg/dL [facility] Comment: Normal: ?<150 mg/dL Borderline High: 150-199 mg/dL High: ?200-499 mg/dL Very High: ? >us=689 mg/dL HDL Cholesterol 64 mg/dL [facility] Comment: Females: High Risk: <50 mg/dL Males: High Risk: <40 mg/dL LDL Cholesterol 145 mg/dL [facility] Comment: Desirable: ? <100 mg/dL Above Desirable: 100-129 mg/dL Borderline High: 130-159 mg/dL High: ?160-189 mg/dL Very High: ? >jm=918 mg/dL Lipid Interpretation See Note [facility] Comment: It is important to [...] individuals with atherosclerotic cardiovascular disease (ASCVD)or LDL >ph=949 mg/dL, use a high-intensity statin (40-80 mg [...] MD CHEMISTRY ORDERABLE S Performing Organization Address [facility] Co de Phone Number [facility] [place] [address] * TSH Lowry (10/30/2023 10:05 PM EDT) Thyroid Stimulating Hormone 3.35 0.27 - 4.20 mcIU/mL [facility] Comment: Reference Interval (mcIU/mL): Females: ??First Trimester: 0.23-3.88 ??Second Trimester: 0.22-3.90 ??Third Trimester: 0.44-4.66 Blood 10/30/2023 10:0 5 PM EDT 10/30/2023 10:12 PM EDT Narrative Resulting Agency Comment Spec In Lab Rosa Cornejo MD CHEMISTRY ORDERABLE S Performing Organization Address [facility]/ZIP Co de Phone Number [facility] [place] [address] * pro-Brain Natriuretic Peptide (10/30/2023 10:05 PM EDT) NT-proBNP 375 <=449 pg/mL [facility] Blood 10/30/2023 10:0 5 PM EDT 10/30/2023 10:12 PM EDT Narrative Resulting Agency Comment Spec In Lab Rosa Cornejo MD CHEMISTRY ORDERABLE S [facility] [place] [address] * (ABNORMAL) Comprehensive metabolic panel (non-fasting) (10/30/2023 10:05 PM EDT) Pathologist [facility] Glucose 121 65 - 199 mg/dL [facility] Comment:Diabetes: >=200 mg/d L plus symptoms Blood Urea Nitrogen 14 8 - 18 mg/dL [facility] Creatinine 0.85 0.70 - 1.20 mg/dL [facility] Sodium 142 135 - 145 mmol/L [facility] Potassium 3.9 3.5 - 5.0 mmol/L [facility] Comment: Please note: ??Patients with WBC >100,000 may have falsely elevated Potassium levels. ??For accurate Potassium quantification in these patients send serum separator tube (gold top) for subsequent determinations. ??Contact the Clinical Chemistry Laboratory if there are any questions. Chloride 105 98 - 107 mmol/L [facility] Carbon Dioxide 27 22 - 31 mmol/L [facility] Anion Gap 10 5 - 15 mmol/L [facility] Calcium 8.8 8.5 - 10.5 mg/dL [facility] Protein, Total 6.5 6.1 - 8.0 g/dL [facility] Albumin 4.2 3.2 - 5.2 g/dL [facility] Aspartate Aminotransferase 36(H) 0 - 30 unit/L [facility] Alanine Aminotransferase 17 0 - 30 unit/L [facility] Alkaline Phosphatase 54 35 - 105 unit/L [facility] Bilirubin, Total 0.5 0.2 - 1.3 mg/dL [facility] Est Glomerular Filtration Rate 68 >=60 mL/min/1. 73 m?? [facility] Comment: This patient's estimated GFR [...] MD CHEMISTRY ORDERABLE S Performing Organization Address City/[facility]/ZIP Co de Phone Number [facility] [place] [address] * Phosphorus (10/30/2023 10:05 PM EDT) Phosphorus 3.3 2.5 - 4.5 mg/dL [facility] Blood 10/30/2023 10:0 5 PM EDT 10/30/2023 10:12 PM EDT Narrative Resulting Agency Comment Spec In Lab Rosa Cornejo MD CHEMISTRY ORDERABLE S [facility] [place] [address] * Magnesium (10/30/2023 10:05 PM EDT) Magnesium 0.86 0.69 - 1.07 mmol/L [facility] Blood 10/30/2023 10:0 5 PM EDT 10/30/2023 10:12 PM EDT Narrative Resulting Agency Comment Spec In Lab Rosa Cornejo MD CHEMISTRY ORDERABLE S Performing Organization Address City/[facility]/ZIP Co de Phone Number [facility] [place] [address] * (ABNORMAL) Troponin (10/30/2023 10:05 PM EDT) Troponin-T, High Sensitivity 214(H) <=14 ng/L [facility] Comment: This patient's troponin T [...] troponin value can be found in the [facility] Laboratory Test Catalog Troponin - [facility] Laboratory Test Catalog Reference: Fourth [place] Definition of Myocardial Infarction. Journal of the [place] [employer] 2018;72:7860-8761 Blood 10/30/2023 10:0 5 PM EDT 10/30/2023 10:12 PM EDT Narrative Resulting Agency Comment Spec In Lab Rosa Cornejo MD CHEMISTRY ORDERABLE S Performing Organization Address City/[facility]/ZIP Co de Phone Number [facility] [place] [address] * EKG 12 Lead (10/30/2023 8:21 PM EDT) Ventricular rate 49 BPM MUSE SYSTEM Atrial Rate 49 BPM MUSE SYSTEM P-R Interval 230 ms MUSE SYSTEM QRS Duration 96 ms MUSE SYSTEM Q-T Interval 526 ms MUSE SYSTEM QTC Calculated (Bezet) 475 ms MUSE SYSTEM Calculated P [place] 98 degrees MUSE SYSTEM Calculated R [place] -48 degrees MUSE SYSTEM Calculated T [place] -51 degrees MUSE SYSTEM INTERPRETATION Sinus bradycardia with 1st degree A-V block Incomplete right bundle branch block Left anterior fascicular block Moderate voltage criteria for LVH, may be normal variant ( R in aVL , [place] product ) T wave abnormality, consider inferior [...] - Reason: Transfer to a Procedural area)1548 ([facility] Unhold - Provider: Admin Adt) fentaNYL (pf) [...] - Reason: Transfer to a Procedural area)1548 ([facility] Unhold - Provider: Admin Adt) midazolam (pf) [...] documented as of this encounter Care Teams Secretary To Board Of Commissioners Relationship Specialty Start Date End Date Rosie Mathews MD [address] [place] [phone] PCP - General Family Medicine 11/25/17 11/23/23 documented as of this encounter
--- OUTSIDE RECORDS SUMMARY | 2024-02-03 10:34 | XMS_ITS | Clinical Summary ---
Author Organization [facility] Address [address] [place] [address] Care Team Providers Care Budget Officer Name Role Phone Kirsten Bateman MD Primary Care Provider [phone] Allergies Active Allergy Reactions Criticality Noted Date [...] COVID-19 Vaccine (2022-24 season) 2023 Care Teams Budget Officer Relationship Specialty Start Date End Date Kirsten Bateman MD [address] [place] [phone] PCP - General 01/13/10
--- OUTSIDE RECORDS SUMMARY | 2024-02-03 10:34 | XMS_ITS | Encounter Summary ---
Author Organization [facility] Address [facility] [place] [address] Care Team Providers Care Architectural Superintendent Name Role Phone Rosie Mathews MD Primary Care Provider [phone] Encounter Details Date Type Department Care Team (Late st Contact Info) Description 10/30/2023 [place] [address] Jose Lee MD [facility] [place] [address] Social History Tobacco Use Types Packs/Day Years [...] Date: 10/30/2023 Referring Provider: Bree Patient Location: [facility] HPI: 83 yoF w/ PMHx of HTN, [...] in the patient condition. Jose Lee MD Buyer Planner documented in this encounter Plan of Treatment Upcoming Encounters Date Type Department Care Team (Late st Contact Info) Description 03/29/2024 11:20 AM EDT Office Visit Cardiology at [address] [place] [address] Izaiah Meyer MD [facility] [place] [address] documented as of this encounter Visit Diagnoses Not on filedocumented in this encounter Care Teams Architectural Superintendent Relationship Specialty Start Date End Date Rosie Mathews MD [address] [place] [address] PCP - General Family Medicine 11/25/17 11/23/23 documented as of this encounter
--- OUTSIDE RECORDS SUMMARY | 2024-02-03 10:34 | XMS_ITS | Encounter Summary ---
Author Organization [facility] Address [facility] [place] [address] Care Team Providers Care Regulatory Affairs Associate Name Role Phone Rosie Mathews MD Primary Care Provider [phone] Reason for Visit * Reason Comments Skin Lesion * Consultation (Routine) - Closed Specialty Diagnoses / Procedures Referred By John hunt Referred To Contact Dermatology Diagnoses facial skin lesion Procedures pt would like to be seen PRADEEP Rosie Mathews MD [address] [place] [address] [facility] Dermatology [address] [place] [address] Referral ID Status Reason Start Date Expiration Date V isits Requested Visits Authorized [id number] Closed Consult, Test & Treat Connection Center 10/25/2017 10/25/2018 1 1 Encounter Details Date Type Department Care Team (Late st Contact Info) Description 11/25/2017 4:30 PM EDT Office Visit Dermatology at [facility] [address] [place] [address] Call, Radu Go MD [facility] [address] [address] Seborrheic keratosis; Fibrous papule of [...] by Radu Tom MD Resident in Dermatology [facility] Patient seen in conjunction with staff machine stonecutter: Terri Hale MD Section of Dermatology [facility] * Terri Hale MD - 11/25/2017 4:30 [...] 11:20 AM EDT Office Visit Cardiology at [address] [address] Izaiah Meyer MD [facility] [place] [address] documented as of this encounter Visit Diagnoses Diagnosis Seborrheic keratosis Other seborrheic keratosis Fibrous papule of nose Benign neoplasm of skin of other and unspecified parts of face Skin tags, multiple acquired documented in this encounter Care Teams Regulatory Affairs Associate Relationship Specialty Start Date End Date Rosie Mathews MD [address] [place] [address] PCP - General Family Medicine 11/25/17 11/23/23 documented as of this encounter
--- OUTSIDE RECORDS SUMMARY | 2024-02-03 10:34 | XMS_ITS | Encounter Summary ---
Author Organization [facility] [place] [address] Care Team Providers Care Floor Finisher Helper Name Role Phone Rosie Mathews MD Primary Care Provider [phone] Encounter Details Date Type Department Care Team (Late st Contact Info) Description 10/30/2023 5:00 PM EDT Ancillary Procedure [place] [phone] Izaiah Meyer MD [facility] [place] [address] Social History Tobacco Use Types Packs/Day Years Used Date Smoking Tobacco: Former Smokeless Tobacco: Never Alcohol Use Standard Drinks/Week Comments Not Currently 0 (1 standard drink = 0.6 oz pur e alcohol) [facility] Inpatient Questions Answer Date Recorded Does [...] 11:20 AM EDT Office Visit Cardiology at [address] [place] [address] Izaiah Meyer MD [facility] [place] [address] documented as of this encounter Procedures Procedure Name Priority Date/Time Associated Diagnosis Comments FILM LIBRARY STORAGE ONLY CT CHEST Routine 10/30/2023 4:59 PM EDT documented in this encounter Results * Film Library- Storage Only CT Chest (10/30/2023 4:59 PM EDT) Narrative [facility] 10/30/2023 4:59 PM EDT This exam is auto-finalizing. It's purpose is for storage only. Izaiah Meyer MD IMG FILM LIBRARY ORD ERABLES Performing Organization Address City/State/[facility] Co de Phone Number [place], [place] documented in this encounter Visit Diagnoses Not on filedocumented in this encounter Care Teams Floor Finisher Helper Relationship Specialty Start Date End Date Rosie Mathews MD [address] [place] [address] PCP - General Family Medicine 11/25/17 11/23/23 documented as of this encounter
--- OUTSIDE RECORDS SUMMARY | 2024-02-03 10:34 | XMS_ITS | Encounter Summary ---
Author Organization [facility] Address [facility] [place] [address] Care Team Providers Care Site Manager Name Role Phone Rosie Mathews MD Primary Care Provider [phone] Encounter Details Date Type Department Care Team (Late st Contact Info) Description 10/30/2023 Notes [place] [address] Jose Lee MD [facility] [place] [address] Social History Tobacco Use Types Packs/Day Years Used Date Smoking Tobacco: Former Smokeless Tobacco: Never Alcohol Use Standard Drinks/Week Comments Not Currently 0 (1 standard drink = 0.6 oz pur e alcohol) [facility] Utilities Answer Date Recorded In the past 12 months has th e [employer], gas, oil, or water [employer] threatened to shut off services in your [...] 11:20 AM EDT Office Visit Cardiology at [address] [address] Izaiah Meyer MD [facility] [place] [place] [address] documented as of this encounter Visit Diagnoses Not on filedocumented in this encounter Additional Health Concerns Infection Onset Date Last Indicated Resolved Time Rule Out Respiratory 11/02/2023 11/02/2023 024 12:22 PM EDT Rule Out COVID-19 11/02/2023 11/02/2023 11/02/2023 12:22 PM EDT documented as of this encounter Care Teams Site Manager Relationship Specialty Start Date End Date Rosie Mathews MD [address] [place] [address] PCP - General Family Medicine 11/25/17 11/23/23 documented as of this encounter
--- OUTSIDE RECORDS SUMMARY | 2024-02-03 10:34 | XMS_ITS | Encounter Summary ---
Author Organization [facility] Address [facility] [place] [address] Care Team Providers Care Lead Programmer Name Role Phone Rosie Mathews MD Primary Care Provider [phone] Encounter Details Date Type Department Care Team (Late st Contact Info) Description 10/30/2023 External Results Transfer Center [facility] [place] [address] Social History Tobacco Use Types Packs/Day Years Used Date Smoking Tobacco: Former Smokeless Tobacco: Never Alcohol Use Standard Drinks/Week Comments Not Currently 0 (1 standard drink = 0.6 oz pur e alcohol) [facility] Utilities Answer Date Recorded In the past 12 months has e [employer], gas, oil, or water [employer] threatened to shut off services in your [...] 11:20 AM EDT Office Visit Cardiology at [address] [address] Iaziah Meyer MD [facility] [place] [address] documented as of this encounter Procedures Procedure [...] on filedocumented in this encounter Care Teams Lead Programmer Relationship Specialty Start Date End Date Rosie Mathews MD [address] [place] [address] PCP - General Family Medicine 11/25/17 11/23/23 documented as of this encounter
--- OUTSIDE RECORDS SUMMARY | 2024-02-03 10:35 | XMS_ITS | Encounter Summary ---
Author Organization [facility] Address [address] [place] [address] Care Team Providers Care School Fundraising Director Name Role Phone Unavailable Primary Care Provider Unavailabl e Encounter Details Date Type Department Care Team (Late st Contact Info) Description 01/10/2008 Before PRISM Converted Visit (Maple) [facility] - Maple conversion [address] [place] [address] Ray Farooq MD [address] [place] [address] Social History Tobacco Use Types Packs/Day Years Used Date Smoking Tobacco: Never Assessed Sex and Gender Information Value Date Recorded Sex Assigned at Not on file Gender Identity Not on file Sexual Orientation Not on file documented as of this encounter Consult Notes * Ray Farooq MD - 03/21/2009 8095 EDT [facility] - 01/10/2008 Kirsten Bateman MD [place] [address] [place] [address] Bateman: Chief complaint: Hearing loss. History of present illness: Pmdyn-ofvcs-ehbf-old female with along history of bilateral hearing [...] is a nonsmoker, nondrinker. She lives in [place]. Review of systems is significant for allergies, [...] Tosin Farooq MD - MLD Job ID: [id number] Doc ID: [id number] cc: Kristen Bateman MD cc: Kirsten Bateman MD documented in this encounter Plan of Treatment Not on file documented as of this encounter Visit Diagnoses Not on filedocumented in this encounter
--- OUTSIDE RECORDS SUMMARY | 2024-02-03 10:35 | XMS_ITS | Encounter Summary ---
Author Organization [facility] Address [address] [place] [address] Care Team Providers Care Chrome Plater Helper Name Role Phone Kirsten Bateman MD Primary Care Provider [phone] Reason for Visit * Reason Comments Hearing Loss tinnitus Encounter Details Date Type Department Care Team (Latest Contact Info) Description 01/15/2010 10:10 EDT Office Visit [address] [address] Unknown, ProviderMD Ray Farooq MD [address] [place] [address] [address] Sensorineural hearing loss, bilateral; Subjective [...] Ray Farooq MD - 01/28/2010 1108 EDT [facility]/FOLLOWUP NOTE - 01/15/2010 CHIEF COMPLAINT: [...] by Ray Farooq MD 01/28/2010 11:08 Ray Fraooq MD - Ray Farooq MD - [facility] Job ID: SM Doc ID: [id number] Ext Doc ID: [id number] cc: Kirsten Bateman MD * Ray Farooq [...] tinnitus documented in this encounter Care Teams Chrome Plater Helper Relationship Specialty Start Date End Date Kirsten Bateman MD [address] [place] [address] PCP - General 01/13/10 documented as of this encounter
--- OUTSIDE RECORDS SUMMARY | 2024-02-03 10:35 | XMS_ITS | Encounter Summary ---
Author Organization [facility] Address [address] [place] [address] Care Team Providers Care Finishing Inspector Name Role Phone Kirsten Bateman MD Primary Care Provider [phone] Encounter Details Date Type Department Care Team (Late st Contact Info) Description 01/14/2010 Abstract Used for ABSTRACTING Data [phone] Kirsten Bateman MD [address] [place] [address] Social History Tobacco Use Types [...] OIL/COCONUT OIL (FATTY ACID BASE MISC) by [facility]Non-Drug; Combo Route) route. EPA CYANOCOBALAMIN (VITAMIN B-12 ORAL) Take by mouth. ASCORBIC ACID (VITAMIN C ORAL) Take by mouth. VITAMIN E ACETATE (VITAMIN E ORAL) Take by mouth. ASPIRIN ORAL Take by mouth. AMITRIPTYLINE HCL (AMITRIPTYLINE ORAL) Take by mouth. ATENOLOL ORAL Take by mouth. SIMVASTATIN ORAL Take by mouth. added in this encounter Care Teams Finishing Inspector Relationship Specialty Start Date End Date Kirsten Bateman MD [address] [place] [phone] PCP - General 01/13/10 documented as of this encounter
--- OUTSIDE RECORDS SUMMARY | 2024-02-03 10:35 | XMS_ITS | Referral Summary ---
Author Organization [facility] Address [address] [place] [address] Care Team Providers Care Cane Weigher Helper Name Role Phone Kirsten Bateman MD Primary Care Provider [phone] Allergies Active Allergy Reactions Criticality Noted Date [...] of Treatment Not on file Care Teams Cane Weigher Helper Relationship Specialty Start Date End Date Kirsten Bateman MD [address] [place] [address] [facility] - General 01/13/10
--- OUTSIDE RECORDS SUMMARY | 2024-02-03 10:35 | XMS_ITS | Encounter Summary ---
Author Organization [facility] Address [address] [place] [address] Care Team Providers Care Tableau Developer Name Role Phone Kirsten Bateman MD Primary Care Provider [phone] Encounter Details Date Type Department Care Team (Late st Contact Info) Description 01/27/2021 Lab Requisition [facility] Pathology & Laboratory Medicine - [facility] [address] [place] [address] Outr Resulting Lab, Provider Social History Tobacco [...] Outr Resulting Lab MICROBIOLOGY - GENERAL ORDERABLES [facility] [address] [place] [address] * COVID-19 TESTING (01/26/2021 16:45 EDT) COVID-19 rt-PCR Result Negative Negative 01/28/2021 13:31 EDT [facility] Comment: This test has not [...] developed and its performance characteristics determined by [facility]. It has not been cleared or [...] testing. This test is based on the [facility] COVID-19 Emergency Use Authorization (EUA) assay, with minor modification as defined by the FDA Performed on the Simple Admito 7 Pro RT-PCR System. Performing Lab [facility] Lab 01/28/2021 13:31 EDT [facility] Swab 01/26/2021 16:4 5 EDT 01/27/2021 15:46 EDT Provider Outr Resulting Lab MICROBIOLOGY - GENERAL ORDERABLES [facility] [address] [place] [address] documented in this encounter Visit Diagnoses Not on filedocumented in this encounter Care Teams Tableau Developer Relationship Specialty Start Date End Date Kirsten Bateman MD [address] [place] [address] PCP - General 01/13/10 documented as of this encounter
--- OUTSIDE RECORDS SUMMARY | 2024-02-06 10:54 | XMS_ITS | Encounter Summary ---
Author Organization [facility] Address [facility] [place] [address] Care Team Providers Care Fruit Grader Name Role Phone Rosie Mathews MD Primary Care Provider [phone] Encounter Details Date Type Department Care Team (Late st Contact Info) Description 11/18/2023 Telephone Cardiology at [address] [address] Cheryl Guzman MD [facility] [place] [address] Social History Tobacco Use Types Packs/Day Years Used Date Smoking Tobacco: Former Smokeless Tobacco: Never Alcohol Use Standard Drinks/Week Comments Not Currently 0 (1 standard drink = 0.6 oz pur e alcohol) [facility] Utilities Answer Date Recorded In the past 12 months has e electric, gas, oil, or water Results [employer] threatened to shut off services in your [...] place to sleep or slept in a correction (including now)? No 11/01/2023 IPV Inpatient Questions [...] Provider: Radu Giron MD Patient Location: ED, [facility] Past Medical History: HTN HLD NSTEMI ([facility], status-post revasc) Presenting Symptoms per OSH: Lyla Goodrich is a 83 y.o. woman who presents to [facility] with an episode of chest pain. Recent [...] today's values. RCA was described as a RECRUITMENT SPECIALIST. Recommend admission for observation to assess for [...] 11:20 AM EDT Office Visit Cardiology at [address] [phone] Izaiah Meyer MD [facility] [place] [address] documented as of this encounter Visit Diagnoses Not on filedocumented in this encounter Care Teams Fruit Grader Relationship Specialty Start Date End Date Rosie Mathews MD [address] [place] [address] PCP - General Family Medicine 11/25/17 11/23/23 documented as of this encounter
--- OUTSIDE RECORDS SUMMARY | 2024-02-06 10:54 | XMS_ITS | Encounter Summary ---
Author Organization [facility] Address [facility] [place] [address] Care Team Providers Care First Mate Name Role Phone Rosie Mathews MD Primary Care Provider [phone] Encounter Details Date Type Department Care Team (Late st Contact Info) Description 11/18/2023 External Results Administration [facility] [place] [address] Social History Tobacco Use Types Packs/Day Years Used Date Smoking Tobacco: Former Smokeless Tobacco: Never Alcohol Use Standard Drinks/Week Comments Not Currently 0 (1 standard drink = 0.6 oz pur e alcohol) [facility] Utilities Answer Date Recorded In the [...] AM EDT Office Visit Cardiology at [address] [phone] Izaiah Meyer MD [facility] [place] [address] documented as of this encounter Procedures Procedure Name Priority Date/Time Associated Diagnosis Comments ECG SCAN Routine 11/18/2023 4:50 PM EDT documented in this encounter Results * Scan Doc: ECG (11/18/2023 4:50 PM EDT) Historical Provider MEDIA MGR SCAN EX T ORDR/RSLT documented in this encounter Visit Diagnoses Not on filedocumented in this encounter Care Teams First Mate Relationship Specialty Start Date End Date Rosie Mathews MD [address] [place] [address] PCP - General Family Medicine 11/25/17 11/23/23 documented as of this encounter
--- OUTSIDE RECORDS SUMMARY | 2024-02-06 10:54 | XMS_ITS | Clinical Summary ---
Author Organization [facility] Address [facility] [place] [address] Care Team Providers Care Fitness Management Director Name Role Phone Masood Pierson MD Primary Care Provider [phone] Allergies Active Allergy Reactions Criticality Noted Date [...] Prox 60 Mid 80 3.5 x 15 [place] 3.5 x 15 Machias RCA Mid AoCTO. Collats from Cx 4.0 x 38 Machias NB: RCA initially intervened; Cx 2 days [...] Care Team Description 12/16/2023 Telephone Cardiology at [address] [address] Izaiah Meyer MD 11/24/2023 10:40 AM EDT Office Visit Cardiology at [address] [address] Izaiah Meyer MD ASCVD (arteriosclerotic cardiovascular disease); Cardiomyopathy, ischemic; Ascending aorta dilatation; Hyperpiesia 11/24/2023 Travel 11/18/2023 Telephone Cardiology at [address] [address] Cheryl Guzman MD 11/18/2023 [place] [address] from Last 3 Months Social History Tobacco Use Types Packs/Day Years Used Date Smoking Tobacco: Former Smokeless Tobacco: Never Alcohol Use Standard Drinks/Week Comments Not Currently 0 (1 standard drink = 0.6 oz pur e alcohol) [facility] Utilities Answer Date Recorded In the past 12 months has th e [employer], gas, oil, or water [employer] threatened to shut off services in your [...] place to sleep or slept in a chcf (including now)? No 11/01/2023 DH IPV Inpatient [...] 11:20 AM EDT Office Visit Cardiology at [address] [place] [phone] Izaiah Meyer MD [facility] [place] [address] Health Maintenance Due Date Last Done Comments Pneumoccocal Vaccine: 65+ (1 of 2 - PCV) 1945 Tdap adult 1958 Tetanus vaccine 1958 Zoster vaccine (1 of 2) 1989 Advance Directive 1994 Bone Density Scan 2004 Covid-19 Vaccine ( season) 2023 Influenza (Flu) vaccine (1 o f 1 - Influenza standard series) 02/19/2024 Procedures Procedure Name Priority Date/Time Associated Diagnosis Comments EKG 12-LEAD Routine 11/24/2023 11:09 AM EDT ECG SCAN Routine 11/18/2023 4:50 PM EDT from Last 3 Months Results * EKG 12 Lead (11/24/2023 11:09 AM EDT) Ventricular rate 51 BPM MUSE SYSTEM Atrial Rate 51 BPM MUSE SYSTEM P-R Interval 228 ms MUSE SYSTEM QRS Duration 96 ms MUSE SYSTEM Q-T Interval 482 ms MUSE SYSTEM QTC Calculated (Bezet) 444 ms MUSE SYSTEM Calculated P Hersey 79 degrees MUSE SYSTEM Calculated R Hersey -39 degrees MUSE SYSTEM Calculated T Hersey -49 degrees MUSE SYSTEM INTERPRETATION Sinus bradycardia [...] Anterolateral leads Confirmed by MD Meyer Daniel ([id number]) on 12/10/2023 2:50:44 PM MUSE SYSTEM 11/24/2023 11:0 9 AM EDT 12/10/2023 2:50 PM EDT Unknown ECG ORDERABLES MUSE SYSTEM * Scan Doc: ECG (11/18/2023 4:50 PM EDT) Historical Provider MD GUPTA MGR SCAN EX T ORDR/RSLT from Last 3 Months Advance Directives * Attempt Cardiopulmonary Resuscitation - Inpatient (Latest Code Status on File) Date Activated Date Inactivated Comments 10/30/2023 9:58 PM 11/03/2023 7:13 PM Question Answer Comments Code Status decision made by: Patient Care Teams Fitness Management Director Relationship Specialty Start Date End Date Masood Pierson MD [address] [place] [address] PCP - General Family Medicine 11/24/23
--- OUTSIDE RECORDS SUMMARY | 2024-02-06 10:54 | XMS_ITS | Encounter Summary ---
Author Organization [facility] Address [facility] [place] [address] Care Team Providers Care Board Certified Orthodontist Name Role Phone Masood Pierson MD Primary Care Provider Reason for Visit * Reason Comments Establish Care Coronary Artery Disease Encounter Details Date Type Department Care Team (Latest Contact Info) Description 11/24/2023 10:40 AM EDT Office Visit Cardiology at [address] [place] [address] Izaiah Meyer MD [facility] [place] [address] ASCVD (arteriosclerotic cardiovascular disease); Cardiomyopathy, ischemic; Ascending aorta dilatation; Hyperpiesia Social History Tobacco Use Types Packs/Day Years Used Date Smoking Tobacco: Former Smokeless Tobacco: Never Alcohol Use Standard Drinks/Week Comments Not Currently 0 (1 standard drink = 0.6 oz pur e alcohol) [facility] Utilities Answer Date Recorded In the [...] Prox 60 Mid 80 3.5 x 15 [place] 3.5 x 15 Andrea RCA Mid AoCTO. [...] y.o. female. HPI: 83 f [facility] cardiovascular [facility]. She has a recent history [...] [facility]hab. [facility] 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
--- OUTSIDE RECORDS SUMMARY | 2024-02-06 10:54 | XMS_ITS | Encounter Summary ---
Author Organization [facility] Address [facility] [place] [address] Care Team Providers Care Grocery Stocker Name Role Phone Masood Pierson MD Primary Care Provider [phone] Encounter Details Date Type Department Care Team (Late st Contact Info) Description 12/16/2023 Telephone Cardiology at [address] [place] [address] Izaiah Meyer MD [facility] [place] [place] [address] Social History Tobacco Use Types Packs/Day Years Used Date Smoking Tobacco: Former Smokeless Tobacco: Never Alcohol Use Standard Drinks/Week Comments Not Currently 0 (1 standard drink = 0.6 oz pur e alcohol) [facility] Utilities Answer Date Recorded In the past 12 months has [employer], gas, oil, or water [employer] threatened to shut off services in your [...] place to sleep or slept in a care home (including now)? No 11/01/2023 DH IPV [...] RN - 12/16/2023 11:25 AM EDT Denise, [facility] Cardiac tobacco drummer, called to report that at today's session [...] AM EDT Office Visit Cardiology at [address] [place] [address] Izaiah Meyer MD [facility] [place] [place] [address] documented as of this encounter Visit Diagnoses Not on filedocumented in this encounter Care Teams Grocery Stocker Relationship Specialty Start Date End Date Masood Pierson MD [address] [place] [address] PCP - General Family Medicine 11/24/23 documented as of this encounter
--- OUTSIDE RECORDS SUMMARY | 2024-02-06 10:54 | XMS_ITS | Encounter Summary ---
Author Organization [facility] Address [facility] [place] [address] Care Team Providers Care Loader Magazine Grinder Name Role Phone Rosie Mathews MD Primary Care Provider Reason for Visit * Reason Onset Date Comments Referral 11/03/2023 Coronary Artery Disease 11/03/2023 Encounter Details Date Type Department Care Team (Late st Contact Info) Description 11/03/2023 Telephone Cardiology at [address] [address] Andressa Machado, printing shop supervisor; Coronary Artery Disease Social History Tobacco Use Types Packs/Day Years Used Date Smoking Tobacco: Former Smokeless Tobacco: Never Alcohol Use Standard Drinks/Week Comments Not Currently 0 (1 standard drink = 0.6 oz pur e alcohol) [facility] Utilities Answer Date Recorded In the past 12 months has [employer], gas, oil, or water [employer] threatened to shut off services in your [...] place to sleep or slept in a [place] [facility] [place] facility (including now)? No 11/01/2023 IPV Inpatient Questions [...] were not included. [facility] [address] [place] [id number] Lyla was referred to this Cardiology clinic in [place] for post cardiac cath 10/31 for STEMI follow up as part of her discharge plan from [facility].. documented in this encounter Plan of Treatment Upcoming Encounters Date Type Department Care Team (Late st Contact Info) Description 03/29/2024 11:20 AM EDT Office Visit Cardiology at [address] [place] [address] Izaiah Meyer MD [facility] [place] [address] documented as of this encounter Visit Diagnoses Not on filedocumented in this encounter Care Teams Loader Magazine Grinder Relationship Specialty Start Date End Date Rosie Mathews MD [address] [place] [address] PCP - General Family Medicine 11/25/17 11/23/23 documented as of this encounter
--- OUTSIDE RECORDS SUMMARY | 2024-02-06 10:54 | XMS_ITS | Encounter Summary ---
Author Organization [facility] Address [facility] [place] [address] Care Team Providers Care Administrator Social Welfare Name Role Phone Masood Pierson MD Primary Care Provider [phone] Encounter Details Date Type Department Care Team [...] place to sleep or slept in a [facility] (including now)? No 11/01/2023 DH IPV Inpatient [...] AM EDT Office Visit Cardiology at [address] [address] Izaiah Meyer MD [facility] [place] [address] documented as of this encounter Visit Diagnoses Not on filedocumented in this encounter Care Teams Administrator Social Welfare Relationship Specialty Start Date End Date Masood Pierson MD [address] [place] [address] PCP - General Family Medicine 11/24/23 documented as of this encounter
--- OUTSIDE RECORDS SUMMARY | 2024-02-06 10:55 | XMS_ITS | Encounter Summary ---
Author Organization [facility] Address [facility] [place] [address] Care Team Providers Care Ep Technologist Name Role Phone Rosie Mathews MD Primary Care Provider [phone] Reason for Referral * Consultation (Routine) - Authorized Specialty Diagnoses / Procedures Referred By Contac t Referred To Contact Cardiology Diagnoses 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 Rosa Hugo MD [facility] [place] [address] Cardiac Rehab, [address] [place] [address] Referral ID Status Reason Start Date Expiration Date Visits Requested Visits Authorized [id number] Authorized Consult, Test & Treat Non PCP 11/03/2023 05/01/2024 36 36 * Home Health Care (Routine) - Authorized Specialty Diagnoses / Procedures Referred By Contac t Referred To Contact Diagnoses Unstable angina Rosa Hugo MD [facility] [place] [address] Referral ID Status Reason Start Date Expiration Date Visits Requested Visits Authorized [id number] Authorized Consult, Test & Treat 11/03/2023 05/01/2024 999 999 Reason for Visit * Auth/Cert (Routine) Specialty Diagnoses / Procedures Referred By John hunt Referred To Contact Diagnoses Unstable angina Chest pain NSTEMI Procedures CARDIAC CATHETERIZATION Rosa Dewey MD [facility] [place] [address] [facility] Referral ID Status Reason Start Date Expiration Date Visits Re quested Visits Authorized [id number] 1 1 Encounter Details Date Type Department Care Team (Latest Contact Info) Description 10/30/2023 5:11 PM EDT - 11/03/2023 5:13 PM EDT Hospital Encounter Heart and Vascular Unit Level 4 [place] [address] Rosa Dewey MD [facility] [place] [address] Jean Laboy MD [facility] [place] [address] Rosa Hugo MD [facility] [place] [address] 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; Tachycardia; Unstable angina Discharge Disposition: Home Social History Tobacco Use Types Packs/Day Years Used Date Smoking Tobacco: Former Smokeless Tobacco: Never Alcohol Use Standard Drinks/Week Comments Not Currently 0 (1 standard drink = 0.6 oz pur e alcohol) [facility] Utilities Answer Date Recorded In the past 12 months has e [employer], gas, oil, or water [employer] threatened to shut off services in your [...] who presented to [facility] as a transfer from [facility] as a possible STEMI alert with acute onset chest pain. The patient reports that her symptoms initially began on Tuesday when she was walking to [employer]. and experienced bilateral arm heaviness while walking with no other symptoms. Then, this afternoon shereports developing bilateral achy shoulder pain and nonradiating substernal left-sided chest pressure that was 7/10 in severity after coming [facility] from [facility]. The patient denies any associated fevers, chills, diaphoresis, lightheadedness/dizziness, syncope/presyncope, dyspnea (either at rest or on exertion), palpitations, orthopnea, or PND. The patient subsequently presented to [facility] as a walk-in for further evaluation. [...] on repeat, her TRU resolved. Cardiology at [facility] was consulted for transfer; the patient was loaded with aspirin 324 mg and ticagrelor 180 mg, started on a heparin drip, and given nitroglycerin with improvement in chest pain. Upon arrival to [facility], the patient was taken directly to the Vice President Of Software Engineering. Two lesions were discovered: one in the prox RCA (felt to almost be a LINER INSTALLER but they were able to wire, balloon, [...] dose administered prior to arrival in the laborer general. Recommended anti-platelet/anti-thrombotic regimen: Continue aspirin 81 mg [...] and low lung volumes. Findings similar to wood coater radiograph from CT 10/30/2023. Pending Studies and [...] 10:40 AM Izaiah Meyer MD Cardiology at [place] Arrive at: [facility] [address] [phone] Future Orders Complete By Expires Referral to Cardiac Rehab [SQR841 Custom] As directed Process Instructions: If no progress note charted, please enter Clinical details in comments. Scheduling Instructions: Questions: My question or request is: STEMI. Cardiac rehab at [facility]. Referral to Home Health [REF34 Custom] As directed Process Instructions: If no progress note charted, please enter Clinical details in comments. Scheduling Instructions: Comments: Please evaluate Adin Santos for admission to Home Health. [address] [facility] [address] (home) Date of : 1940 Inpatient DOCUMENTATION FOR VNA SERVICES (INCLUDING THOSE PATIENTS WITH MEDICARE COVERAGE REQUIRING HOME VNA SERVICES AND/OR HOSPICE SERVICES) PATIENT'S LOCATION: Adin Santos [address] [facility] [phone] (home) Cell: Telephone Information: Early Breastfeeding Care Specialist's Name: self In discussion with the attending physician, it is certified that this patient is under their care and that they, or a Nurse Practitioner, Clinical Nurse specialist or Physician Vice President Quality who is working directly with them, had [...] regarding health issues HOME HEALTH CARE AGENCY: [facility] [address] [place] [address] START OF CARE: within 24-48 hours of [...] Rosie Mathews MD [address] / [facility] [address] . All A agencies which cover [...] Mathews MD / Dr. Masood Pierson [address] [place] [address] 11/09/23 1:55 PM arrival for 2:10 PM appointment Filler Shredding Machine Loader: Izaiah Meyer MD [address] [place] [id number] , 11/24/2023 10:40 AM Your Inpatient Medical Team at [facility] Name(s) of your inpatient provider(s): Attending physician: Rosa Hugo MD Resident physicians: Emile Robles MD; Elmer Tamez MD If you have non-emergent questions, prior to your follow-up visit call: Tuesday-Tuesday between the hours of 8AM-5PM please call the Cardiology Clinic [phone] to speak with a nurse. All other hours please call the Hospital Pipe Organ Technician [phone] and ask to speak to the diamond sizer on-call. Your Primary Care Provider Rosie Mathews MD [phone] For questions regarding this document or issues relating to this hospitalization on the Medical Service, please contact your inpatient physician through the [facility] Pipe Organ Technician . Issues afterhours and on weekends will be handled by the Filler Shredding Machine Loader staff on-call. Associated attestation - Rosa Hugo [...] MD / Dr. Masood Pierson [address] [place] [address] 11/09/23 1:55 PM arrival for 2:10 PM appointment Filler Shredding Machine Loader: Izaiah Meyer MD [address] [place] [address] , 11/24/2023 10:40 AM Your Inpatient Medical Team at [facility] Name(s) of your inpatient provider(s): Attending physician: Rosa Hugo MD Resident physicians: Emile Robles MD; Elmer Tamez MD If you have non-emergent questions, prior to your follow-up visit call: Tuesday-Tuesday between the hours of 8AM-5PM please call the Cardiology Clinic [phone] to speak with a nurse. All other hours please call the Hospital Pipe Organ Technician [phone] and ask to speak to the diamond sizer on-call. Your Primary Care Provider Rosie Mathews MD [phone] documented in this encounter Medications at Time [...] who presented to [facility] as a transfer from [facility] as a possible STEMI alert with [...] who presented to [facility] as a transfer from [facility] as a possible STEMI alert with [...] Resident on Cardiology Service Cardiology S1 (Pager [phone]) Note written in conjunction with Claudio [facility] Medical Student, MS3 Associated attestation - [...] Nirmala Webb - 11/01/2023 11:25 AM EDT Industrial Energy Engineer Encounter Note Patient Name: Adin Santos : [id number] MR#: [id number] Admit Date: 10/30/2023 5:11 PM Hospital Day 2 days Narrative: Self initiated visit to patient for Spiritual support in a regular unit rounds. Assessment: Patient is in the bathroom at the time of this visit. Not a good time for Isotope Technician visit. Intervention and Outcome: An attempted visit [...] who presented to [facility] as a transfer from [facility] as a possible STEMI alert with [...] and low lung volumes. Findings similar to wood coater radiograph from CT 10/30/2023. Scheduled Medications: [AUG [...] who presented to [facility] as a transfer from [facility] as a possible STEMI alert with [...] Resident on Cardiology Service Cardiology S1 (Pager [phone]) Note written in conjunction with Claudio [facility] Medical Student, MS3 Associated attestation - [...] who presented to [facility] as a transfer from [facility] as a possible STEMI alert with acute onset chest pain. Active Problems: Active Hospital Problems Diagnosis Unstable angina Resolved Hospital Problems No resolved problems to display. 24 hr events: - Cath'd yesterday with lesion in the proximal RCA (initially thought it was LINER INSTALLER but they were ableto wire, balloon and [...] and low lung volumes. Findings similar to wood coater radiograph from CT 10/30/2023. TTE (05/13): Interpretation [...] who presented to [facility] as a transfer from [facility] as a possible STEMI alert with [...] Resident on Cardiology Service Cardiology S1 (Pager [phone]) Note written in conjunction with Claudio [facility] Medical Student, MS3 Associated attestation - [...] PCP: Rosie Mathews MD PCP phone number: [phone] Date of Admission: 10/30/2023 ( Hospital Day 0 days ) Attending:Rosa Cornejo MD ID: Adin Santos is a 83 y.o. female PMH significant for hypertension and hyperlipidemia who presented to [facility] as a transfer from [facility] as a possible STEMI alert with acute onset chest pain. The patient reports that her symptoms initially began on Tuesday when she was walking to [employer] and experienced bilateral arm heaviness while walking with no other symptoms. Then, this afternoon shereports developing bilateral achy shoulder pain and nonradiating substernal left-sided chest pressure that was 7/10 in severity after coming [facility]. The patient denies any associated fevers, chills, diaphoresis, lightheadedness/dizziness, syncope/presyncope, dyspnea (either at rest or on exertion), palpitations, orthopnea, or PND. The patient subsequently presented to [facility] as a walk-in for further evaluation. [...] on repeat, her TRU resolved. Cardiology at [facility] was consulted for transfer; the patient was loaded with aspirin 324 mg and ticagrelor 180 mg, started on a heparin drip, and given nitroglycerin with improvement in chest pain. Upon arrival to [facility], the patient was taken directly to the Vice President Of Software Engineering. 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 Findings similar to wood coater radiograph from CT 10/30/2023. Assessment & Plan: Adin Santos is a 83 y.o. female PMH significant for hypertension and hyperlipidemia who presented to [facility] as a transfer from [facility] as a possible STEMI alert with [...] with HTN HLD transferred with chest from [facility]. BP 217/68, HR 71 EKG with [...] information for follow-up Home Health & Hospice, [place] [address] [place] [address] TANESHA BOYCE confirmed with [facility] that they will see the patient within 24-48 hours of discharge for start of care. Transportation: family or friend will provide Wheelchair van/Ambulance? No Functional status prior to admission: Assistive Equipment Home Environment: Others in the home: alone. Current Living Arrangements: home/apartment/condo. Accessibility Concerns:1st floor apartment in skilled nursing community; handicapped accessible. Current Functional Ability: Assistive Equipment DME used at home: cane - straight, grab bar - tub/shower, grab bar - toilet, raised toilet seat DME Needed at Discharge: N/A Patient is insured through: Primary Insurance: [employer]ED MEDICARE Payor: [employer] MEDICARE / Plan: [employer] MEDICARE PPO / Product Type: *No [...] in the room. Electrolytes replaced, see MAR. cork slabs sawyer sites remained C/D/I with baseline ecchymosis unchanged. Pt complained of back pain, lidocaine patch given. Right IV infiltrated during infusion, patient is marked with sharpie, IV removed. See flowsheet for I+O's and safety rounding. Patient is able to make needs known and call capps within reach. PLAN MOVING FORWARD: Monitor Tele, control BP, monitor laborer general sites, D/C Planning INDIVIDUALIZED FALL PREVENTION INTERVENTIONS: [...] in an outpatient cardiac rehabilitation program at [facility] was discussed. Patient agrees to a [...] and above on RA. PT went to laborer general today. Left fem site oozed throughout shift, [...] MOVING FORWARD: Monitor Tele, control BP, monitor laborer general sites, D/C Planning INDIVIDUALIZED FALL PREVENTION INTERVENTIONS: [...] Admitted From: Transfer from another hospital Location: [facility] Reason for Hospitalization: chest pain Covid Vaccination Status: 1st, 2nd & booster Past medical History: No past medical history on file. Hospitalizations Within the Past 30 Days: no previous admission in last 30 days Current Decision-Making Capacity: Self If AD's have not been completed the following surrogate would be surrogate decision maker per [place] surrogate decision making law. (Only good for 180 days) Any patient receiving care in [place] must abide by [place] law. The hierarchy for surrogate decision making [...] The agent with financial power of deputy prosecuting attorney or a conservator appointed in accordance [...] Arrangements: home/apartment/condo. Accessibility Concerns:1st floor apartment in skilled nursing community; handicapped accessible. In the last 12 months, was there a time when you were not able to pay the mortgage or rent on time?: No In the last 12 months, how many places have you lived?: 1 In the last 12 months, was there a time when you did not have a steady place to sleep or slept in [facility] (including now)?: No In the past [...] toilet seat Home Address confirmed as: [address] [place] [id number] Social & Family Supports: All names listed below confirmed with patient as current and correct Extended Emergency Contact Information Primary Emergency Contact: Iris Downing Address: [address] [place], [place] [id number] [place] [address] Mobile Relation: Child Secondary Emergency Contact: Karen More Address: [address] [facility] [address] [facility] Mobile Relation: Child Current Care Provided by: self Provides Primary Care For: no one Caregiver if needed: child(emmanuel), adult Quality of Family relationships: involved, supportive Community Resources being provided currently: other (see comments) (receives [facility] services at home (1xweekly)) Behavioral Health History: [...] Insurance: N/A Prescription Coverage: Yes Preferred Pharmacy: [id number] - [place], [place] - [address] [facility] [address] [facility] [address] Status: Patient is a : No Primary Care Provider listed: Masood Pierson MD [phone] Patient/Caregiver Goals of Treatment: home when MR Potential Needs for Transition of Care: home health care Agency Referrals: Not Applicable I have met with the patient to: discuss discharge planning needs. provide the [facility], Office of Care Management letter from the Mamma Logist pertaining to rehab referrals. provide a letter describing our affiliations within the [facility] and educate about their right to choose where referrals are sent. provide a list of Home Health Agencies / Durable Medical Equipment vendors which serve their preferred geographic area. provided patient with [facility] Star Quality Rating handout. They have requested referrals to: [facility] [address] [place] [address] Note routed to a Financial Aid Manager who will communicate referrals to facilities and [...] results. PO hydralazine added for BP control. cork slabs sawyer sites remain C/D/I, ecchymosis unchanged th roughout shift. See flowsheet for I+O's and safety rounding. Patient is able to make needs known and call capps within reach. PLAN MOVING FORWARD: Monitor Tele, control CP and BP, NPO at MD for cath, monitor laborer general sites, D/C Planning INDIVIDUALIZED FALL PREVENTION INTERVENTIONS: [...] 11:20 AM EDT Office Visit Cardiology at [address] [place] [address] Izaiah Meyer MD [facility] [place] [address] Scheduled Referrals Name Type Priority Associated Diagnoses [...] Absolute 5.28 1.70 - 6.10 x10(3)/mc L [facility] Lymph % 15.2 % [facility] Lymphocytes Abs 1.3 0.9 - 3.2 x10(3)/ L [facility] Monocyte % 16.9 % [facility] Monocyte Abs 1.4(H) 0.3 - 0.9 x10(3)/ L [facility] Eos % 3.7 % [facility] Eosinophils Abs 0.3 0.0 - 0.4 x10(3)/[facility] Basophil % 0.5 % [facility] Baso Absolute 0.0 0.0 - 0.1 x10(3)/ L [facility] Immature Gran % 0.40 % [facility] Comment: Immature granulocytes(IG's)percentage and absolute count will include metamyelocytes, myelocytes, and promyelocytes. Blood smears from CBCs yielding IG's will be scanned manually for concordance. If this scan disagrees with the automated IG or if promyelocytes are noted, a manual differential will be performed. Immature Gran Absolute 0.03 0.00 - 0.04 x10(3)/mc L [facility] Blood 11/03/2023 3:46 AM EDT 11/03/2023 4:11 AM EDT Narrative Resulting Agency Comment Spec In Lab Qamar Gallardo MD HEMATOLOGY ORDERABLE S [facility] [place] [address] * (ABNORMAL) Hemogram (11/03/2023 3:46 AM EDT) White Blood Cell 8.3 4.0 - 9.5 x10(3)/mc L [facility] Red Blood Cell 3.77(L) 4.00 - 5.21 x10(6)/mc L [facility] Hemoglobin 13.1 11.7 - 15.5 g/dL [facility] Hematocrit 38.0 35.7 - 45.8 % [facility] Mean Cell Volume 100.8(H) 82.6 - 94.4 fL [facility] Mean Cell Hemoglobin 34.7(H) 27.1 - 32.0 pg [facility] Mean Cell Hemoglobin Concentration 34.5 31.7 - 35.0 g/dL [facility] Platelet 181 145 - 357 x10(3)/[facility] LABORATORY RDW Standard Deviation 54.7(H) 37.0 - 46.0 [facility] RDW coefficient of variation 14.6(H) 11.5 - 14.1 % [facility] Mean Platelet Volume 11.2 7.6 - 12.9 [facility] LABORATORY NRBC% auto 0.0 % [facility] NRBC Absolute 0.000 0.000 - 0.000 x10(3)/ L [facility] Blood 11/03/2023 3:46 AM EDT 11/03/2023 4:11 AM EDT Narrative Resulting Agency Comment Spec In Lab Qamar Gallardo MD HEMATOLOGY ORDERABLE S [facility] [place] [address] * Phosphorus (11/03/2023 3:46 AM EDT) Phosphorus 3.2 2.5 - 4.5 mg/dL [facility] Comment:result rechecked-KS Blood 11/03/2023 3:46 AM EDT 11/03/2023 4:11 AM EDT Narrative Resulting Agency Comment Spec In Lab Rosa Cornejo MD CHEMISTRY ORDERABLE S [facility] [place] [address] * Magnesium (11/03/2023 3:46 AM EDT) Magnesium 0.90 0.69 - 1.07 mmol/L [facility] Blood 11/03/2023 3:46 AM EDT 11/03/2023 4:11 AM EDT Narrative Resulting Agency Comment Spec In Lab Rosa Cornejo MD CHEMISTRY ORDERABLE S Performing Organization Address City/[facility]/ZIP Co de Phone Number [facility] [place] [address] * (ABNORMAL) Basic Metabolic Panel (non-fasting) (11/03/2023 3:46 AM EDT) Glucose 105 65 - 199 mg/dL [facility] Comment:Diabetes: >=200 mg/d L plus symptoms Blood Urea Nitrogen 13 8 - 18 mg/dL [facility] Creatinine 0.83 0.70 - 1.20 mg/dL [facility] Sodium 139 135 - 145 mmol/L [facility] Potassium 4.0 3.5 - 5.0 mmol/L [facility] Comment: Please note: ??Patients with WBC >100,000 may have falsely elevated Potassium levels. ??For accurate Potassium quantification in these patients send serum separator tube (gold top) for subsequent determinations. ??Contact the Clinical Chemistry Laboratory if there are any questions. Chloride 108(H) 98 - 107 mmol/L [facility] Carbon Dioxide 19(L) 22 - 31 mmol/L [facility] Anion Gap 12 5 - 15 mmol/L [facility] Calcium 8.2(L) 8.5 - 10.5 mg/dL [facility] Est Glomerular Filtration Rate 69 >=60 mL/min/1. 73 m?? [facility] Comment: This patient's estimated GFR [...] Lab Rosa Cornejo MD CHEMISTRY ORDERABLE S [facility] [place] [id number] * EKG 12 Lead (11/02/2023 12:44 PM EDT) Ventricular rate 83 BPM MUSE SYSTEM Atrial Rate 83 BPM MUSE SYSTEM P-R Interval 216 ms MUSE SYSTEM QRS Duration 90 ms MUSE SYSTEM Q-T Interval 384 ms MUSE SYSTEM QTC Calculated (Bezet) 451 ms MUSE SYSTEM Calculated P [place] 92 degrees MUSE SYSTEM Calculated R [place] -51 degrees MUSE SYSTEM Calculated T [place] -33 degrees MUSE SYSTEM INTERPRETATION Sinus rhythm with 1st degree A-V block with Premature atrial complexes Left axis deviation Moderate voltage criteria for LVH, may be normal variant ( R in aVL , Ifeanyi product ) Anterolatera l infarct (cited on or before 01-NOV-2023) Abnormal ECG When compared with ECG of 01-NOV-2023 22:10, Premature atrial complexes are now Present NV interval has increased Vent. rate has decreased BY ??56 BPM Confirmed by MD Kevin, Esteban ([id number]) on 11/02/2023 1:32:10 PM MUSE SYSTEM 11/02/2023 12:4 4 PM EDT 11/02/2023 1:32 PM EDT Rosa Hugo MD ECG ORDERABLES MUSE SYSTEM * (ABNORMAL) Urinalysis Microscopic Exam (11/02/2023 11:40 AM EDT) RBC, Urine <1 0 - 4 /HPF [facility] Comment: Interpret results with caution, microscopic results are from suboptimal specimen volume WBC, Urine 16(H) 0 - 5 /HPF [facility] Comment: Interpret results with caution, microscopic results are from suboptimal specimen volume Bacteria, Urine Many(A) None /HPF [facility] Squamous Epithelial Cells Raw Data, Urine 10(H) <=4 /HPF [facility] Hyaline Casts, Urine 2 0 - 2 /LPF [facility] Comment: Interpret results with caution, microscopic results are from suboptimal specimen volume Clean Catch Urine 11/02/2023 11:40 AM EDT 11/02/2023 12:05 PM EDT Narrative Resulting Agency Comment Spec In Lab Elmer Tamez MD URINE ORDERABLES Performing Organization Address City/[facility] Co de Phone Number [facility] [place] [address] * (ABNORMAL) Urinalysis with reflex Culture (11/02/2023 11:40 AM EDT) Glucose, Urine Dipstick Negative Negative mg/dL [facility] Protein, Urine Dipstick 30(A) Negative mg/dL [facility] Bilirubin, Urine Dipstick Negative Negative mg/dL [facility] Comment: Clinical correlation required for positive Urine Bilirubin results as false positive may occur with some drugs and drug related products. If a false positive is suspected a serum total bilirubin should be considered if clinically indicated. Urobilinogen, Urine Dipstick Normal Normal mg/dL [facility] pH, Urn (dipstick) 5.5 5.0 - 8.0 [facility] Blood, Urine Dipstick Negative Negative mg/dL [facility] Ketone, Urine Dipstick Trace(A) Negative mg/dL [facility] Nitrite, Urine Dipstick Positive(A) Negative [facility] Leukocytes, Urine Dipstick Small(A) Negative [facility] Appearance, Urine Dipstick Cloudy(A) Clear [facility] Specific [place] Urine Automated >=1.030(A) 1.005 - 1.030 [facility] Color, Urine Dipstick Dark Yellow Yellow [facility] Reflex to Culture Yes [facility] Clean Catch Urine 11/02/2023 11:40 AM EDT 11/02/2023 12:04 PM EDT Narrative Resulting Agency Comment Spec In Lab Rosa Hugo MD URINE ORDERABLES Performing Organization Address City/State/[facility] Co de Phone Number [facility] [place] [address] * Respiratory Panel PCR (11/02/2023 10:15 AM EDT) Respiratory Panel Source [employer]MATURE REPAIRER Swab [facility] Respiratory Panel PCR Negative Negative [facility] Comment: Respiratory Panels are performed on the [employer], using multiplexed PCR nucleic acid detection. ??Negative results do not preclude respiratory infection and should not be used as the sole basis for diagnosis, treatment or other management decisions. Adenovirus Not Detected Not Detected [facility] Coronavirus HKU1 Not Detected Not Detected [facility] Coronavirus NL63 Not Detected Not Detected [facility] Coronavirus 229E Not Detected Not Detected [facility] Coronavirus OC43 Not Detected Not Detected [facility] SARS-CoV-2 Not Detected Not Detected [facility] Comment: Testing for SARS-CoV-2 (Severe acute respiratory syndrome coronavirus 2) to aid in the diagnosis of COVID-19 is performed using the [employer] Respiratory Panel 2.1 (Gelesis) as authorized by the FDA issued Emergency Use Authorization (EUA). This panel also tests for multiple other viral and bacterial pathogens. This assay is intended for In-vitro Diagnostic (IVD) use with nasopharyngeal swabs in viral transport media. The assay is performed based on the instructions for use and additional guidance provided by the FDA. Testing is performed in laboratories within the [facility], each of which is certified under the [...] fact sheets at the following FDA website: https://www.fda.gov/medical-devices/wyyjkcsltoi-vrmsjmi-9006-hwisd-43-owoppwyqi- use-a yuukvxesketdd-jcsthip-xlyhupt/aaszg-efsgufkubbf-jgbq Human Metapneumovirus Not Detected Not Detected [facility] Human Rhinovirus/Enterov irus Not Detected Not Detected [facility] Influenza A Not Detected Not Detected [facility] Influenza B Not Detected Not Detected [facility] Parainfluenza 1 Not Detected Not Detected [facility] Parainfluenza 2 Not Detected Not Detected [facility] Parainfluenza 3 Not Detected Not Detected [facility] Parainfluenza 4 Not Detected Not Detected [facility] Respiratory Syncytial Virus Not Detected Not Detected [facility] Chlamydophila pneumoniae Not Detected Not Detected [facility] Mycoplasma pneumoniae Not Detected Not Detected [facility] Nasopharyngeal Swab 11/02/19 10:15 AM EDT 11/02/2023 10:49 AM EDT Narrative Resulting Agency Comment Spec In Lab Rosa Hugo MD MICROBIOLOGY - GEN ERAL ORDERABLES [facility] [place] [address] * XR Chest One View (11/02/2023 2:51 AM EDT) WORKSTATION ID [id number] RAD Anatomical Region Laterality Modality Chest N/A [...] who have questions please contact the health body care manager that requested your imaging first. ? Narrative [...] patients who have questions please contactthe health body care manager that requested your imaging first. Rosa Hugo MD IMG DX ORDERABLES * (ABNORMAL) Differential, Automated (11/02/2023 12:35 AM EDT) Neutrophil % 76.5 % [facility] Neutrophil Absolute 7.69(H) 1.70 - 6.10 x10(3)/mc L [facility] Lymph % 8.3 % [facility] Lymphocytes Abs 0.8(L) 0.9 - 3.2 x10(3)/mc L [facility] Monocyte % 12.9 % [facility] Monocyte Abs 1.3(H) 0.3 - 0.9 x10(3)/mc L [facility] Eos % 1.4 % [facility] Eosinophils Abs 0.1 0.0 - 0.4 x10(3)/mc L [facility] Basophil % 0.4 % [facility] Baso Absolute 0.0 0.0 - 0.1 x10(3)/mc L [facility] Immature Gran % 0.50 % [facility] Comment: Immature granulocytes(IG's)percentage and absolute count will include metamyelocytes, myelocytes, and promyelocytes. Blood smears from CBCs yielding IG's will be scanned manually for concordance. If this scan disagrees with the automated IG or if promyelocytes are noted, a manual differential will be performed. Immature Gran Absolute 0.05(H) 0.00 - 0.04 x10(3)/mc L [facility] Blood 11/02/2023 12:3 5 AM EDT 11/02/2023 12:43 AM EDT Narrative Resulting Agency Comment Spec In Lab Qamar Gallardo MD HEMATOLOGY ORDERABLE S [facility] [place] [address] * (ABNORMAL) Hemogram (11/02/2023 12:35 AM EDT) White Blood Cell 10.0(H) 4.0 - 9.5 x10(3)/mc L [facility] Red Blood Cell 4.06 4.00 - 5.21 x10(6)/mc L [facility] Hemoglobin 13.8 11.7 - 15.5 g/dL [facility] Hematocrit 39.8 35.7 - 45.8 % [facility] Mean Cell Volume 98.0(H) 82.6 - 94.4 fL [facility] Mean Cell Hemoglobin 34.0(H) 27.1 - 32.0 pg [facility] Mean Cell Hemoglobin Concentration 34.7 31.7 - 35.0 g/dL [facility] Platelet 198 145 - 357 x10(3)/mc L [facility] RDW Standard Deviation 52.1(H) 37.0 - 46.0 fL [facility] RDW coefficient of variation 14.3(H) 11.5 - 14.1 % [facility] Mean Platelet Volume 11.4 7.6 - 12.9 [facility] NRBC% auto 0.0 % [facility] NRBC Absolute 0.000 0.000 - 0.000 x10(3)/ L [facility] Blood 11/02/2023 12:3 5 AM EDT 11/02/2023 12:43 AM EDT Narrative Resulting Agency Comment Spec In Lab Qamar Gallardo MD HEMATOLOGY ORDERABLE S [facility] [place] [address] * (ABNORMAL) Phosphorus (11/02/2023 12:35 AM EDT) Phosphorus 1.6(L) 2.5 - 4.5 mg/dL [facility] Blood 11/02/2023 12:3 5 AM EDT 11/02/2023 12:43 AM EDT Narrative Resulting Agency Comment Spec In Lab Rosa Cornejo MD CHEMISTRY ORDERABLE S [facility] [place] [address] * Magnesium (11/02/2023 12:35 AM EDT) Pathologist [facility] Magnesium 0.87 0.69 - 1.07 mmol/L [facility] Blood 11/02/2023 12:3 5 AM EDT 11/02/2023 12:43 AM EDT Narrative Resulting Agency Comment Spec In Lab Rosa Cornejo MD CHEMISTRY ORDERABLE S Performing Organization Address City/[facility]/ZIP Co de Phone Number [facility] [place] [address] * Basic Metabolic Panel (non-fasting) (11/02/2023 12:35 AM EDT) Glucose 125 65 - 199 mg/dL [facility] Comment:Diabetes: >=200 mg/d L plus symptoms Blood Urea Nitrogen 9 8 - 18 mg/dL [facility] Creatinine 0.83 0.70 - 1.20 mg/dL [facility] Sodium 136 135 - 145 mmol/L [facility] Potassium 3.6 3.5 - 5.0 mmol/L [facility] Comment: Please note: ??Patients with WBC >100,000 may have falsely elevated Potassium levels. ??For accurate Potassium quantification in these patients send serum separator tube (gold top) for subsequent determinations. ??Contact the Clinical Chemistry Laboratory if there are any questions. Chloride 102 98 - 107 mmol/L [facility] Carbon Dioxide 25 22 - 31 mmol/L [facility] Anion Gap 9 5 - 15 mmol/L [facility] Calcium 9.0 8.5 - 10.5 mg/dL [facility] Est Glomerular Filtration Rate 69 >=60 mL/min/1. 73 m?? [facility] Comment: This patient's estimated GFR [...] Lab Rosa Cornejo MD CHEMISTRY ORDERABLE S [facility] [place] [address] * Blood culture (11/02/2023 12:35 AM EDT) Blood Culture No growth at 5 days. [facility] Blood 11/02/2023 12:3 5 AM EDT 11/02/2023 1:55 AM EDT Comment:#2 site ukn Narrative Resulting Agency Comment Spec In Lab Rosa Hugo MD MICROBIOLOGY - BLO OD ORDERABLES [facility] [place] [address] * Blood culture (11/02/2023 12:15 AM EDT) Blood Culture No growth at 5 days. [facility] Blood 11/02/2023 12:1 5 AM EDT 11/02/2023 1:54 AM EDT Comment:#1site unk Narrative Resulting Agency Comment Spec In Lab Rosa Hugo MD MICROBIOLOGY - BLO OD ORDERABLES Performing Organization Address City/[facility]/ZIP Co de Phone Number [facility] [place] [address] * EKG 12 Lead (11/01/2023 10:10 PM EDT) Ventricular rate 139 BPM MUSE SYSTEM Atrial Rate 139 BPM MUSE SYSTEM P-R Interval 168 ms MUSE SYSTEM QRS Duration 84 ms MUSE SYSTEM Q-T Interval 286 ms MUSE SYSTEM QTC Calculated (Bezet) 435 ms MUSE SYSTEM Calculated R [place] -59 degrees MUSE SYSTEM Calculated T [place] -27 degrees MUSE SYSTEM INTERPRETATION Mid-RP tachycardia, consider sinus tachycardia or SVT Left axis deviation Moderate voltage criteria for LVH, may be normal variant ( R in aVL , [place] product ) Inferior infarct (cited on or before 01-NOV-2023) Anterolateral infarct (cited on or before 01-NOV-2023) Abnormal ECG When compared with ECG of 01-NOV-2023 15:22, Vent. rate Although rate has increased Serial changes of Anterior infarct Present I personally reviewed the tracing and edited the fellows interpretation Confirmed by fellow MD Andrés, Enriqueta ([id number]) on 11/04/2023 7:57:50 AM Confirmed by MD Gerardo, Shameka ([id number]) on 11/04/2023 4:32:03 PM MUSE SYSTEM 11/01/2023 10:1 0 PM EDT 11/04/2023 4:32 PM EDT Rosa Cornejo MD ECG ORDERABLES Performing Organization Address City/[facility]/ZIP Co de Phone Number MUSE SYSTEM * (ABNORMAL) Hemogram (11/01/2023 10:06 PM EDT) White Blood Cell 10.4(H) 4.0 - 9.5 x10(3)/ L [facility] Red Blood Cell 4.11 4.00 - 5.21 x10(6)/ L [facility] Hemoglobin 14.0 11.7 - 15.5 g/dL [facility] Hematocrit 41.1 35.7 - 45.8 % [facility] Mean Cell Volume 100.0(H) 82.6 - 94.4 fL [facility] Mean Cell Hemoglobin 34.1(H) 27.1 - 32.0 pg [facility] Mean Cell Hemoglobin Concentration 34.1 31.7 - 35.0 g/dL [facility] Platelet 197 145 - 357 x10(3)/[facility] LABORATORY RDW Standard Deviation 54.0(H) 37.0 - 46.0 fL [facility] RDW coefficient of variation 14.6(H) 11.5 - 14.1 % [facility] Mean Platelet Volume 11.2 7.6 - 12.9 fL [facility] NRBC% auto 0.0 % [facility] NRBC Absolute 0.000 0.000 - 0.000 x10(3)/[facility] Blood 11/01/2023 10:0 6 PM EDT 11/01/2023 10:22 PM EDT Narrative Resulting Agency Comment Spec In Lab Rosa Hugo MD HEMATOLOGY ORDERAB LES [facility] [place] [address] * POCT Glucose (11/01/2023 5:59 PM EDT) Glucose, POC 104 65 - 199 mg/dL [facility] Comment: Supplemental ranges: <140 mg/dL before meals <180 mg/dL all other times of the day Blood 11/01/2023 5:59 PM EDT 11/01/2023 5:59 PM EDT Rosa Hugo MD POINT OF CARE TEST ORDERABLES [facility] [place] [address] * POCT Glucose (11/01/2023 5:35 PM EDT) Glucose, POC 85 65 - 199 mg/dL [facility] Comment: Supplemental ranges: <140 mg/dL before meals <180 mg/dL all other times of the day Blood 11/01/2023 5:35 PM EDT 11/01/2023 5:35 PM EDT Rosa Hugo MD POINT OF CARE TEST ORDERABLES Performing Organization Address City/[facility] Co de Phone Number [facility] [place] [address] * EKG 12 Lead (11/01/2023 3:22 PM EDT) Ventricular rate 59 BPM MUSE SYSTEM Atrial Rate 59 BPM MUSE SYSTEM P-R Interval 220 ms MUSE SYSTEM QRS Duration 94 ms MUSE SYSTEM Q-T Interval 428 ms MUSE SYSTEM QTC Calculated (Bezet) 423 ms MUSE SYSTEM Calculated P [place] 76 degrees MUSE SYSTEM Calculated R [place] -50 degrees MUSE SYSTEM Calculated T [place] -59 degrees MUSE SYSTEM INTERPRETATION Sinus bradycardia [...] Modality Other Narrative 11/02/2023 4:57 PM EDT ?[facility] ? Cardiac Catheterization/Intervention Report ? Patient Name: Joleen, Adin Catherine. ? Procedure Date: 11/01/2023 ? A #: [id number] ? Primary Physician: Rosa Dewey I ? Case #: [id number] ? File Name: [id number] ? Catheterization Order Number: [id number] ? [facility] ?[facility] ? Final Report [place], [place] ? Patient Name: ? Adin Townsendjosue ?ID#: ?[id number] ? : ?1940 ? Procedure Date: ? [...] procedure was Urgent. The indication for ?the laborer general visit is ACS greater than 24 hrs. [...] ??A premounted ? 3.50 x 15 mm [place] (RADHA) was deployed with a maximum ? [...] ? A premounted 3.50 x 15 mm [place] (RADHA) was deployed ? with a maximum [...] dose administered prior to arrival in the laborer general. ?Recommended anti-platelet/anti-thrombotic regimen: ?Continue aspirin 81 mg daily for indefinitely. ?Continue clopidogrel 75 mg daily for 12 months then stop. ?These recommendations are made at the time of the intervention. Patient ?and provider preferences or a changing clinical situation may require ?modification of this regimen. Consult [facility] Interventional Cardiology for ?questions. ?The 1 year [...] Note Otto, Rosa I, MD - 12/12/2023 [facility] Cardiac Catheterization/Intervention Report Patient Name: Adin Santos Procedure Date: 11/01/2023 A #: [id number] Primary Physician: Rosa Dewey I Case #: [id number] File Name: [id number] Catheterization Order Number: [id number] [facility] FinalReport [place], [place] Patient Name: Adin Santos ID#:[id number] :1940 Procedure Date: November 01, 2023 Case [...] diagnostic procedure was Urgent. The indicationfor the laborer general visit is ACS greater than 24 hrs. [...] 14 atmospheres. Apremounted 3.50 x 15 mm [place] (RADHA) was deployed with amaximum inflation pressure [...] The lesion was predilated with a 3.00mm [id number] MM balloon with a maximum inflation pressure of 14atmospheres. A premounted 3.50 x 15 mm [place] (RADHA) wasdeployed with a maximum inflation pressure [...] dose administered prior to arrival in the laborer general. Recommended anti-platelet/anti-thrombotic regimen: Continue aspirin 81 mg daily for indefinitely. Continue clopidogrel 75 mg daily for 12 months then stop. These recommendations are made at the time of the intervention.Patient and provider preferences or a changing clinical situation mayrequire modification of this regimen. Consult [facility] Interventional Cardiologyfor questions. The 1 year bleeding [...] * POCT Glucose (11/01/2023 7:06 AM EDT) [facility] Glucose, POC 93 65 - 199 mg/dL [facility] Comment: Supplemental ranges: <140 mg/dL before meals <180 mg/dL all other times of the day Blood 11/01/2023 7:06 AM EDT 11/01/2023 7:06 AM EDT Jean Laboy MD POINT OF CARE TEST O RDERABLES [facility] [place] [address] * (ABNORMAL) Differential, Automated (11/01/2023 3:09 AM EDT) [facility] Neutrophil % 63.9 % [facility] Neutrophil Absolute 5.54 1.70 - 6.10 x10(3)/mc L [facility] Lymph % 20.0 % [facility] Lymphocytes Abs 1.7 0.9 - 3.2 x10(3)/mc L [facility] Monocyte % 11.9 % [facility] Monocyte Abs 1.0(H) 0.3 - 0.9 x10(3)/mc L [facility] Eos % 3.2 % [facility] Eosinophils Abs 0.3 0.0 - 0.4 x10(3)/mc L [facility] Basophil % 0.5 % [facility] Baso Absolute 0.0 0.0 - 0.1 x10(3)/mc L [facility] Immature Gran % 0.50 % [facility] Comment: Immature granulocytes(IG's)percentage and absolute count will include metamyelocytes, myelocytes, and promyelocytes. Blood smears from CBCs yielding IG's will be scanned manually for concordance. If this scan disagrees with the automated IG or if promyelocytes are noted, a manual differential will be performed. Immature Gran Absolute 0.04 0.00 - 0.04 x10(3)/ L [facility] Blood 11/01/2023 3:09 AM EDT 11/01/2023 3:29 AM EDT Narrative Resulting Agency Comment Spec In Lab Qamar Gallardo MD HEMATOLOGY ORDERABLE S Performing Organization Address City/State/[facility] Co de Phone Number [facility] [place] [address] * (ABNORMAL) Hemogram (11/01/2023 3:09 AM EDT) White Blood Cell 8.7 4.0 - 9.5 x10(3)/ L [facility] Red Blood Cell 3.72(L) 4.00 - 5.21 x10(6)/mc L [facility] Hemoglobin 12.5 11.7 - 15.5 g/dL [facility] Hematocrit 36.8 35.7 - 45.8 % [facility] Mean Cell Volume 98.9(H) 82.6 - 94.4 fL [facility] Mean Cell Hemoglobin 33.6(H) 27.1 - 32.0 pg [facility] Mean Cell Hemoglobin Concentration 34.0 31.7 - 35.0 g/dL [facility] Platelet 184 145 - 357 x10(3)/ L [facility] RDW Standard Deviation 53.5(H) 37.0 - 46.0 fL [facility] RDW coefficient of variation 14.6(H) 11.5 - 14.1 % [facility] Mean Platelet Volume 11.3 7.6 - 12.9 fL [facility] NRBC% auto 0.0 % [facility] NRBC Absolute 0.000 0.000 - 0.000 x10(3)/mc L [facility] Blood 11/01/2023 3:09 AM EDT 11/01/2023 3:29 AM EDT Narrative Resulting Agency Comment Spec In Lab Qamar Gallardo MD HEMATOLOGY ORDERABLE S Performing Organization Address City/[facility]/ZIP Co de Phone Number [facility] [place] [address] * Phosphorus (11/01/2023 3:09 AM EDT) Phosphorus 2.5 2.5 - 4.5 mg/dL [facility] Blood 11/01/2023 3:09 AM EDT 11/01/2023 3:29 AM EDT Narrative Resulting Agency Comment Spec In Lab Rosa Cornejo MD CHEMISTRY ORDERABLE S Performing Organization Address City/[facility]/ZIP Co de Phone Number [facility] [place] [address] * Magnesium (11/01/2023 3:09 AM EDT) Magnesium 0.82 0.69 - 1.07 mmol/L [facility] Blood 11/01/2023 3:09 AM EDT 11/01/2023 3:29 AM EDT Narrative Resulting Agency Comment Spec In Lab Rosa Cornejo MD CHEMISTRY ORDERABLE S Performing Organization Address City/[facility]/ZIP Co de Phone Number [facility] [place] [address] * (ABNORMAL) Basic Metabolic Panel (non-fasting) (11/01/2023 3:09 AM EDT) Glucose 100 65 - 199 mg/dL [facility] Comment:Diabetes: >=200 mg/d L plus symptoms Blood Urea Nitrogen 14 8 - 18 mg/dL [facility] Creatinine 0.83 0.70 - 1.20 mg/dL [facility] Sodium 137 135 - 145 mmol/L [facility] Potassium 3.4(L) 3.5 - 5.0 mmol/L [facility] Comment: Please note: ??Patients with WBC >100,000 may have falsely elevated Potassium levels. ??For accurate Potassium quantification in these patients send serum separator tube (gold top) for subsequent determinations. ??Contact the Clinical Chemistry Laboratory if there are any questions. Chloride 105 98 - 107 mmol/L [facility] Carbon Dioxide 24 22 - 31 mmol/L [facility] Anion Gap 8 5 - 15 mmol/L [facility] Calcium 8.6 8.5 - 10.5 mg/dL [facility] Est Glomerular Filtration Rate 69 >=60 mL/min/1. 73 m?? [facility] Comment: This patient's estimated GFR [...] Lab Rosa Cornejo MD CHEMISTRY ORDERABLE S [facility] [place] [address] * (ABNORMAL) Troponin (10/31/2023 2:46 PM EDT) Troponin-T, High Sensitivity 544(H) <=14 ng/L [facility] Comment: This patient's troponin T [...] troponin value can be found in the [facility] Test Catalog Troponin - [facility] Test Catalog Reference: [place] Definition of Myocardial Infarction. Journal of the [place] [employer] 2018;72:5163-2959 Blood 10/31/2023 2:46 PM EDT 10/31/2023 2:55 PM EDT Narrative Resulting Agency Comment Spec In Lab Jean Laboy MD CHEMISTRY ORDERABLES [facility] [place] [address] * EKG 12 Lead (10/31/2023 1:07 PM EDT) Ventricular rate 54 BPM MUSE SYSTEM Atrial Rate 54 BPM MUSE SYSTEM P-R Interval 218 ms MUSE SYSTEM QRS Duration 92 ms MUSE SYSTEM Q-T Interval 540 ms MUSE SYSTEM QTC Calculated (Bezet) 512 ms MUSE SYSTEM Calculated P [place] 85 degrees MUSE SYSTEM Calculated R [place] -44 degrees MUSE SYSTEM Calculated T [place] -69 degrees MUSE SYSTEM INTERPRETATION Sinus bradycardia with 1st degree A-V block Left axis deviation Moderate voltage criteria for LVH, may be normal variant ( R in aVL , [place] product ) T wave abnormality, consider inferolateral [...] EDT) Troponin-T, High Sensitivity 580(H) <=14 ng/L [facility] Comment: This patient's troponin T [...] troponin value can be found in the [facility] Test Catalog Troponin - [facility] Test Catalog Reference: [place] Definition of Myocardial Infarction. Journal of the [place] [employer]iology 2018;72:2017-5997 Blood 10/31/2023 11:3 7 AM EDT 10/31/2023 11:50 AM EDT Narrative Resulting Agency Comment Spec In Lab Rosa Cornejo MD CHEMISTRY ORDERABLE S Performing Organization Address [facility]/State/ZIP Co de Phone Number [facility] [place] [place] [address] * ECHO COMPLETE (10/31/2023 8:52 AM EDT) Anatomical Region Laterality Modality Cardiac Other 10/31/2023 7:57 AM EDT Narrative 10/31/2023 9:45 AM EDT [address] [place] [address] ? Echocardiogram Report Name: ADIN SANTOS ? Study Date: 10/31/2023 07:57 AMBP: 106/76 mmHg ? Patient Location: [id number] A : 1940 ? Height: 163 cm ? Account: [id number] Age: 83 yrs ? Weight: 76 kg Gender: Female ?BSA: 1.8 m2 Ordering Physician: ROSA DEWEY Referring Physician: OMAIRA GIRON Performed By: HAFSA Carmichael Reason For Study: STEMI Interpreting Fellow: Raymond Warren. Exam Location: [facility]. Interpretation Summary -The left ventricle is [...] is no prior echocardiogram for comparison. Procedure Complete-93958. Satisfactory quality. There is sinus bradycardia. Left [...] Note Edgard Wang MD - 10/31/2023 [address] [place] [address] Echocardiogram Report Name: ADIN SANTOS Study Date: 407:57 AMBP: 106/76 mmHg Patient Location: [id number] A : 1940 Height: 163 cm Account: [id number] Age: 83 yrs Weight: 76 kg Gender: Female BSA: 1.8 m2 Ordering Physician: ROSA DEWEY Referring Physician: OMAIRA GIRON Performed By: HAFSA Carmichael Reason For Study: STEMI Interpreting Fellow: Raymond Warren. Exam Location: [facility]. Interpretation Summary -The left ventricle is [...] is no prior echocardiogram for comparison. Procedure Complete-12004. Satisfactory quality. There is sinus bradycardia. Left [...] EDT) Troponin-T, High Sensitivity 571(H) <=14 ng/L [facility] Comment: This patient's troponin T [...] troponin value can be found in the [facility] Test Catalog Troponin - [facility] Test Catalog Reference: [facility] [place] Definition of Myocardial Infarction. Journal of the [place] [employer] 2018;72:9876-1562 Blood 10/31/2023 8:51 AM EDT 10/31/2023 9:12 AM EDT Narrative Resulting Agency Comment Spec In Lab Rosa Cornejo MD CHEMISTRY ORDERABLE S [facility] [place] [address] * CARDIAC CATHETERIZATION (10/31/2023 8:10 AM EDT) Anatomical Region Laterality Modality Other Narrative 11/07/2023 9:42 AM EDT ?[facility] ? Cardiac Catheterization/Intervention Report ? Patient Name: Adin Santos. ? Procedure Date: 10/30/2023 ? A #: [id number] ? Primary Physician: Rosa Dewey I ? Case #: [id number] ? File Name: [id number] ? Catheterization Order Number: [id number] ? [facility] ? Final Report [place], [place] ? Patient Name: ? Adin M. Goguen ?ID#: ?[id number] ? : ?1940 ? Procedure Date: ? [...] procedure was Emergent. The indication for ?the laborer general visit is ACS less than or equal [...] A premounted 4.00 x 38 mm Andrea [place] (RADHA) was deployed ? with a maximum [...] dose administered prior to arrival in the laborer general. ?Recommended anti-platelet/anti-thrombotic regimen: ?Continue aspirin 81 mg daily for 12 months then stop. ?Continue clopidogrel 75 mg daily for indefinitely. ?These recommendations are made at the time of the intervention. Patient ?and provider preferences or a changing clinical situation may require ?modification of this regimen. Consult [facility] Interventional Cardiology for ?questions. ? Conclusions: ?* [...] Procedure Note Rosa Dewey MD - 12/05/2023 [facility] Cardiac Catheterization/Intervention Report Patient Name: Adin Santos Procedure Date: 10/30/2023 A #: [id number] Primary Physician: Rosa Dewey I Case #: [id number] File Name: [id number] Catheterization Order Number: [id number] [facility] FinalReport [place], [place] Patient Name: Adin CatherineYasir Edvinree ID#:[id number] :1940 Procedure Date: October 30, 2023 Case #: [id number] Room: 5 Case Physician: Rosa Dewey M.D. [...] was designated as ASA Class III. The [facility] clinical frailtyscale is 5: Mildly Frail. Diagnostic Tests: Electrocardiography: EKG was assessed by ECG. EKG was Abnormal. EKG showed STDeviation >= 0.5 mm, other abnormality and dynamic EKG changes. Medications Prior to Procedure: Aspirin, Angiotensin II Receptor Kristy, Beta Kristy andStatin. Indications for Diagnostic Cath: The priority of the diagnostic procedure was Emergent. Theindication for the laborer general visit is ACS less than or equal [...] The priority for the procedure was Emergent.The [facility] indication for the procedure was STEMI-Immediate PCI [...] A premounted 4.00 x 38 mm Andrea [place] (RADHA) wasdeployed with a maximum inflation pressure [...] dose administered prior to arrival in the laborer general. Recommended anti-platelet/anti-thrombotic regimen: Continue aspirin 81 mg daily for 12 months then stop. Continue clopidogrel 75 mg daily for indefinitely. These recommendations are made at the time of the intervention.Patient and provider preferences or a changing clinical situation mayrequire modification of this regimen. Consult [facility] Interventional Cardiologyfor questions. Conclusions: * Two vessel [...] * (ABNORMAL) Troponin (10/31/2023 4:21 AM EDT) [facility] Troponin-T, High Sensitivity 457(H) <=14 ng/L [facility] Comment: This patient's troponin T [...] troponin value can be found in the [facility] Test Catalog Troponin - [facility] Test Catalog Reference: [place] Definition of Myocardial Infarction. Journal of the [place] [employer]iology 2018;72:8840-8162 Blood 10/31/2023 4:21 AM EDT 10/31/2023 4:30 AM EDT Narrative Resulting Agency Comment Spec In Lab Rosa Cornejo MD CHEMISTRY ORDERABLE S [facility] [place] [address] * (ABNORMAL) Differential, Automated (10/31/2023 3:05 AM EDT) Neutrophil % 71.7 % [facility] Neutrophil Absolute 8.21(H) 1.70 - 6.10 x10(3)/mc L [facility] Lymph % 16.9 % [facility] Lymphocytes Abs 1.9 0.9 - 3.2 x10(3)/mc L [facility] Monocyte % 9.4 % [facility] Monocyte Abs 1.1(H) 0.3 - 0.9 x10(3)/mc L [facility] Eos % 1.3 % [facility] Eosinophils Abs 0.2 0.0 - 0.4 x10(3)/mc L [facility] Basophil % 0.4 % [facility] Baso Absolute 0.0 0.0 - 0.1 x10(3)/mc L [facility] Immature Gran % 0.30 % [facility] Comment: Immature granulocytes(IG's)percentage and absolute count will include metamyelocytes, myelocytes, and promyelocytes. Blood smears from CBCs yielding IG's will be scanned manually for concordance. If this scan disagrees with the automated IG or if promyelocytes are noted, a manual differential will be performed. Immature Gran Absolute 0.04 0.00 - 0.04 x10(3)/mc L [facility] Blood 10/31/2023 3:05 AM EDT 10/31/2023 3:13 AM EDT Narrative Resulting Agency Comment Spec In Lab Qamar Gallardo MD HEMATOLOGY ORDERABLE S [facility] [place] [address] * (ABNORMAL) Hemogram (10/31/2023 3:05 AM EDT) White Blood Cell 11.5(H) 4.0 - 9.5 x10(3)/ L [facility] Red Blood Cell 3.75(L) 4.00 - 5.21 x10(6)/[facility] LABORATORY Hemoglobin 12.6 11.7 - 15.5 g/dL [facility] Hematocrit 37.1 35.7 - 45.8 % [facility] Mean Cell Volume 98.9(H) 82.6 - 94.4 fL [facility] Mean Cell Hemoglobin 33.6(H) 27.1 - 32.0 pg [facility] Mean Cell Hemoglobin Concentration 34.0 31.7 - 35.0 g/dL [facility] Platelet 206 145 - 357 x10(3)/ L [facility] RDW Standard Deviation 53.4(H) 37.0 - 46.0 [facility] RDW coefficient of variation 14.6(H) 11.5 - 14.1 % [facility] Mean Platelet Volume 11.1 7.6 - 12.9 [facility]ORY NRBC% auto 0.0 % [facility] NRBC Absolute 0.000 0.000 - 0.000 x10(3)/ L [facility] Blood 10/31/2023 3:05 AM EDT 10/31/2023 3:13 AM EDT Narrative Resulting Agency Comment Spec In Lab Qamar Gallardo MD HEMATOLOGY ORDERABLE S Performing Organization Address [facility] Co de Phone Number [facility] [place] [address] * (ABNORMAL) APTT (10/31/2023 3:05 AM EDT) Partial Thromboplastin Time 67(H) 25 - 37 sec [facility] Comment: The PTT is NOT appropriate for heparin monitoring. Use the Anti-Xa level for heparin monitoring (HEP UFH) or LMWH monitoring (HEP LMW). A PTT less than 37 seconds generally indicates adequate hemostasis. Blood 10/31/2023 3:05 AM EDT 10/31/2023 3:13 AM EDT Narrative Resulting Agency Comment Spec In Lab Rosa Cornejo MD HEMATOLOGY ORDERABL ES Performing Organization Address [facility] de Phone Number [facility] [place] [address] * (ABNORMAL) Prothrombin Time (10/31/2023 3:05 AM EDT) Prothrombin Time 12.6(H) 9.4 - 12.5 sec [facility] International Normalization Ratio 1.1 [facility] Comment: An INR <2.0 indicates [...] MD HEMATOLOGY ORDERABL ES Performing Organization Address [facility] Co de Phone [place] [address] * (ABNORMAL) Differential, Automated (10/31/2023 1:37 AM EDT) Pathologist [facility] Neutrophil % 71.1 % [facility] Neutrophil Absolute 7.53(H) 1.70 - 6.10 x10(3)/ L [facility] Lymph % 18.0 % [facility] Lymphocytes Abs 1.9 0.9 - 3.2 x10(3)/ L [facility] Monocyte % 8.7 % [facility] Monocyte Abs 0.9 0.3 - 0.9 x10(3)/[facility] Eos % 1.6 % [facility] Eosinophils Abs 0.2 0.0 - 0.4 x10(3)/[facility] Basophil % 0.4 % [facility] Baso Absolute 0.0 0.0 - 0.1 x10(3)/[facility] Immature Gran % 0.20 % [facility] Comment: Immature granulocytes(IG's)percentage and absolute count will include metamyelocytes, myelocytes, and promyelocytes. Blood smears from CBCs yielding IG's will be scanned manually for concordance. If this scan disagrees with the automated IG or if promyelocytes are noted, a manual differential will be performed. Immature Gran Absolute 0.02 0.00 - 0.04 x10(3)/ L [facility] Blood 10/31/2023 1:37 AM EDT 10/31/2023 1:46 AM EDT Narrative Resulting Agency Comment Spec In Lab Qamar Gallardo MD HEMATOLOGY ORDERABLE S [facility] [place] [address] * (ABNORMAL) Hemogram (10/31/2023 1:37 AM EDT) Pathologist [facility] White Blood Cell 10.6(H) 4.0 - 9.5 x10(3)/mc L [facility] Red Blood Cell 3.78(L) 4.00 - 5.21 x10(6)/mc L [facility] Hemoglobin 13.0 11.7 - 15.5 g/dL [facility] Hematocrit 37.9 35.7 - 45.8 % [facility] Mean Cell Volume 100.3(H) 82.6 - 94.4 fL [facility] Mean Cell Hemoglobin 34.4(H) 27.1 - 32.0 pg [facility] Mean Cell Hemoglobin Concentration 34.3 31.7 - 35.0 g/dL [facility] Platelet 204 145 - 357 x10(3)/ L [facility] RDW Standard Deviation 54.3(H) 37.0 - 46.0 fL [facility] RDW coefficient of variation 14.6(H) 11.5 - 14.1 % [facility] Mean Platelet Volume 11.1 7.6 - 12.9 fL [facility] NRBC% auto 0.0 % [facility] NRBC Absolute 0.000 0.000 - 0.000 x10(3)/ L [facility] Blood 10/31/2023 1:37 AM EDT 10/31/2023 1:46 AM EDT Narrative Resulting Agency Comment Spec In Lab Qamar Gallardo MD HEMATOLOGY ORDERABLE S [facility] [place] [address] * Phosphorus (10/31/2023 1:37 AM EDT) Phosphorus 3.2 2.5 - 4.5 mg/dL [facility] Blood 10/31/2023 1:37 AM EDT 10/31/2023 1:46 AM EDT Narrative Resulting Agency Comment Spec In Lab Rosa Cornejo MD CHEMISTRY ORDERABLE S [facility] [place] [address] * Magnesium (10/31/2023 1:37 AM EDT) Pathologist [facility] Magnesium 0.83 0.69 - 1.07 mmol/L [facility] Blood 10/31/2023 1:37 AM EDT 10/31/2023 1:46 AM EDT Narrative Resulting Agency Comment Spec In Lab Rosa Cornejo MD CHEMISTRY ORDERABLE S Performing Organization Address [facility] Co de Phone Number [facility] [place] [address] * Basic Metabolic Panel (non-fasting) (10/31/2023 1:37 AM EDT) Pathologist [facility] Glucose 114 65 - 199 mg/dL [facility] Comment:Diabetes: >=200 mg/d L plus symptoms Blood Urea Nitrogen 13 8 - 18 mg/dL [facility] Creatinine 0.81 0.70 - 1.20 mg/dL [facility] Sodium 140 135 - 145 mmol/L [facility] Potassium 3.9 3.5 - 5.0 mmol/L [facility] Comment: Please note: ??Patients with WBC >100,000 may have falsely elevated Potassium levels. ??For accurate Potassium quantification in these patients send serum separator tube (gold top) for subsequent determinations. ??Contact the Clinical Chemistry Laboratory if there are any questions. Chloride 107 98 - 107 mmol/L [facility] Carbon Dioxide 25 22 - 31 mmol/L [facility] Anion Gap 8 5 - 15 mmol/L [facility] Calcium 8.6 8.5 - 10.5 mg/dL [facility] Est Glomerular Filtration Rate 72 >=60 mL/min/1. 73 m?? [facility] Comment: This patient's estimated GFR [...] Lab Rosa Cornejo MD CHEMISTRY ORDERABLE S [facility] [place] [address] * (ABNORMAL) Troponin (10/31/2023 1:37 AM EDT) Troponin-T, High Sensitivity 329(H) <=14 ng/L [facility] Comment: This patient's troponin T [...] troponin value can be found in the [facility] Test Catalog Troponin - [facility] Test Catalog Reference: [place] Definition of Myocardial Infarction. Journal of the [place] [employer] 2018;72:9963-7175 Blood 10/31/2023 1:37 AM EDT 10/31/2023 1:46 AM EDT Narrative Resulting Agency Comment Spec In Lab Rosa Cornejo MD CHEMISTRY ORDERABLE S Performing Organization Address [facility]/ZIP Co de Phone Number [facility] [place] [address] * EKG 12 Lead (10/31/2023 1:20 AM EDT) Ventricular rate 52 BPM MUSE SYSTEM Atrial Rate 52 BPM MUSE SYSTEM P-R Interval 224 ms MUSE SYSTEM QRS Duration 108 ms MUSE SYSTEM Q-T Interval 544 ms MUSE SYSTEM QTC Calculated (Bezet) 505 ms MUSE SYSTEM Calculated P [place] 90 degrees MUSE SYSTEM Calculated R [place] -57 degrees MUSE SYSTEM Calculated T [place] -63 degrees MUSE SYSTEM INTERPRETATION Sinus bradycardia with 1st degree A-V block Pulmonary disease pattern Left anterior fascicular block Moderate voltage criteria for LVH, may be normal variant ( R in aVL , [place] product ) T wave abnormality, consider inferior ischemia T wave abnormality, consider anterolateral ischemia Prolonged QT Abnormal ECG When compared with ECG of 30-OCT-2023 22:40, No significant change was found Confirmed by Charles COFFMAN, Butch ([id number]) on 11/01/2023 8:58:03 PM MUSE SYSTEM 10/31/2023 1:20 AM EDT 11/01/2023 8:58 PM EDT Rosa Cornejo MD ECG ORDERABLES Performing Organization Address City/[facility]/ZIP Co de Phone Number MUSE SYSTEM * EKG 12 Lead (10/30/2023 10:40 PM EDT) Ventricular rate 55 BPM MUSE SYSTEM Atrial Rate 55 BPM MUSE SYSTEM P-R Interval 232 ms MUSE SYSTEM QRS Duration 102 ms MUSE SYSTEM Q-T Interval 520 ms MUSE SYSTEM QTC Calculated (Bezet) 497 ms MUSE SYSTEM Calculated P [place] 75 degrees MUSE SYSTEM Calculated R [place] -53 degrees MUSE SYSTEM Calculated T [place] -57 degrees MUSE SYSTEM INTERPRETATION Sinus bradycardia [...] Chest One View (10/30/2023 10:10 PM EDT) [employer] WORKSTATION ID [id number] DH RAD Anatomical Region Laterality Modality Chest [...] and low lung volumes. Findings similar to wood coater radiograph from CT 10/30/2023. Thank you for letting us participate in the care of this patient. ??If you are a health care provider and have any questions regarding this report, please contact the number below. ??For patients who have questions please contact the health body care manager that requested your imaging first. ? Narrative [...] and low lung volumes. Findings similar to wood coater radiograph from CT 10/30/2023. Thank you for letting us participate in the care of this patient. If youare a health care provider and have any questions regarding this report,please contact the number below. For patients who have questions please contactthe health body care manager that requested your imaging first. Rosa Cornejo MD IMG DX ORDERABLES * Green Tube HOLD (10/30/2023 10:05 PM EDT) Pathologist [facility] Green Hold Sample in lab. [facility] Blood Venous Draw / Unknown 10/30/2023 10:05 PM EDT 10/30/2023 10:13 PM EDT Qamar Gallardo MD CHEMISTRY ORDERABLES [facility] [place] [address] * (ABNORMAL) Differential, Automated (10/30/2023 10:05 PM EDT) Pathologist [facility] Neutrophil % 76.6 % [facility] Neutrophil Absolute 6.94(H) 1.70 - 6.10 x10(3)/mc L [facility] Lymph % 15.4 % [facility] Lymphocytes Abs 1.4 0.9 - 3.2 x10(3)/mc L [facility] Monocyte % 6.1 % [facility] Monocyte Abs 0.6 0.3 - 0.9 x10(3)/mc L [facility] Eos % 1.1 % [facility] Eosinophils Abs 0.1 0.0 - 0.4 x10(3)/mc L [facility] Basophil % 0.6 % [facility] Baso Absolute 0.0 0.0 - 0.1 x10(3)/mc L [facility] Immature Gran % 0.20 % [facility] Comment: Immature granulocytes(IG's)percentage and absolute count will include metamyelocytes, myelocytes, and promyelocytes. Blood smears from CBCs yielding IG's will be scanned manually for concordance. If this scan disagrees with the automated IG or if promyelocytes are noted, a manual differential will be performed. Immature Gran Absolute 0.02 0.00 - 0.04 x10(3)/mc L [facility] Blood 10/30/2023 10:0 5 PM EDT 10/30/2023 10:12 PM EDT Narrative Resulting Agency Comment Spec In Lab Qamar Gallardo MD HEMATOLOGY ORDERABLE S [facility] [place] [address] * (ABNORMAL) Hemogram (10/30/2023 10:05 PM EDT) White Blood Cell 9.0 4.0 - 9.5 x10(3)/mc L [facility] Red Blood Cell 3.96(L) 4.00 - 5.21 x10(6)/mc L [facility] Hemoglobin 13.3 11.7 - 15.5 g/dL [facility] Hematocrit 39.1 35.7 - 45.8 % [facility] Mean Cell Volume 98.7(H) 82.6 - 94.4 fL [facility] Mean Cell Hemoglobin 33.6(H) 27.1 - 32.0 pg [facility] Mean Cell Hemoglobin Concentration 34.0 31.7 - 35.0 g/dL [facility] Platelet 211 145 - 357 x10(3)/mc L [facility] RDW Standard Deviation 53.6(H) 37.0 - 46.0 fL [facility] RDW coefficient of variation 14.6(H) 11.5 - 14.1 % [facility] Mean Platelet Volume 11.1 7.6 - 12.9 fL [facility] NRBC% auto 0.0 % [facility] NRBC Absolute 0.000 0.000 - 0.000 x10(3)/mc L [facility] Blood 10/30/2023 10:0 5 PM EDT 10/30/2023 10:12 PM EDT Narrative Resulting Agency Comment Spec In Lab Qamar Gallardo MD HEMATOLOGY ORDERABLE S Performing Organization Address [facility] Co de Phone Number [facility] [place] [address] * Hemoglobin A1c (10/30/2023 10:05 PM EDT) Hemoglobin A1c 5.5 4.3 - 5.6 % [facility] Comment: Reference Range: 4.3 - [...] Mellitus, Diabetes Care 2013; 36: Suppl. 1, S67-41 Estimated Average Glucose See note mg/dL [facility] Comment: Estimated Average Glucose not appropriate for patients over 70 years of age. Blood 10/30/2023 10:0 5 PM EDT 10/30/2023 10:12 PM EDT Narrative Resulting Agency Comment Spec In Lab Rosa Cornejo MD CHEMISTRY ORDERABLE S Performing Organization Address [facility] Co de Phone Number [facility] [place] [address] * Lipid Panel (Reflex Direct LDL) (10/30/2023 10:05 PM EDT) Cholesterol, Total 218 mg/dL [facility] Comment: Desirable: ? <200 mg/dL Borderline High: 200-239 mg/dL Higher: ?>nn=185 mg/dL Triglyceride 46 mg/dL [facility] Comment: Normal: ?<150 mg/dL Borderline High: 150-199 mg/dL High: ?200-499 mg/dL Very High: ? >to=774 mg/dL HDL Cholesterol 64 mg/dL [facility] Comment: Females: High Risk: <50 mg/dL Males: High Risk: <40 mg/dL LDL Cholesterol 145 mg/dL [facility] Comment: Desirable: ? <100 mg/dL Above Desirable: 100-129 mg/dL Borderline High: 130-159 mg/dL High: ?160-189 mg/dL Very High: ? >hk=552 mg/dL Lipid Interpretation See Note [facility] Comment: It is important to [...] ACC/AHA Guidelines (most recently Feliciano et al. [facility] 03/23/22): For individuals with atherosclerotic cardiovascular disease (ASCVD)or LDL >gl=461 mg/dL, use a high-intensity statin (40-80 mg [...] MD CHEMISTRY ORDERABLE S Performing Organization Address [facility] Co de Phone Number [facility] [place] [address] * TSH Anderson (10/30/2023 10:05 PM EDT) Thyroid Stimulating Hormone 3.35 0.27 - 4.20 mcIU/mL [facility] Comment: Reference Interval (mcIU/mL): Females: ??First Trimester: 0.23-3.88 ??Second Trimester: 0.22-3.90 ??Third Trimester: 0.44-4.66 Blood 10/30/2023 10:0 5 PM EDT 10/30/2023 10:12 PM EDT Narrative Resulting Agency Comment Spec In Lab Rosa Cornejo MD CHEMISTRY ORDERABLE S Performing Organization Address [facility] Co de Phone Number [facility] [place] [address] * pro-Brain Natriuretic Peptide (10/30/2023 10:05 PM EDT) NT-proBNP 375 <=449 pg/mL [facility] Blood 10/30/2023 10:0 5 PM EDT 10/30/2023 10:12 PM EDT Narrative Resulting Agency Comment Spec In Lab Rosa Cornejo MD CHEMISTRY ORDERABLE S [facility] [place] [address] * (ABNORMAL) Comprehensive metabolic panel (non-fasting) (10/30/2023 10:05 PM EDT) Glucose 121 65 - 199 mg/dL [facility] Comment:Diabetes: >=200 mg/d L plus symptoms Blood Urea Nitrogen 14 8 - 18 mg/dL [facility] Creatinine 0.85 0.70 - 1.20 mg/dL [facility] Sodium 142 135 - 145 mmol/L [facility] Potassium 3.9 3.5 - 5.0 mmol/L [facility] Comment: Please note: ??Patients with WBC >100,000 may have falsely elevated Potassium levels. ??For accurate Potassium quantification in these patients send serum separator tube (gold top) for subsequent determinations. ??Contact the Clinical Chemistry Laboratory if there are any questions. Chloride 105 98 - 107 mmol/L [facility] Carbon Dioxide 27 22 - 31 mmol/L [facility] Anion Gap 10 5 - 15 mmol/L [facility] Calcium 8.8 8.5 - 10.5 mg/dL [facility] Protein, Total 6.5 6.1 - 8.0 g/dL [facility] Albumin 4.2 3.2 - 5.2 g/dL [facility] Aspartate Aminotransferase 36(H) 0 - 30 unit/L [facility] Alanine Aminotransferase 17 0 - 30 unit/L [facility] Alkaline Phosphatase 54 35 - 105 unit/L [facility] Bilirubin, Total 0.5 0.2 - 1.3 mg/dL [facility] Est Glomerular Filtration Rate 68 >=60 mL/min/1. 73 m?? [facility] Comment: This patient's estimated GFR [...] MD CHEMISTRY ORDERABLE S Performing Organization Address City/[facility]/ZIP Co de Phone Number [facility] [place] [address] * Phosphorus (10/30/2023 10:05 PM EDT) Phosphorus 3.3 2.5 - 4.5 mg/dL [facility] Blood 10/30/2023 10:0 5 PM EDT 10/30/2023 10:12 PM EDT Narrative Resulting Agency Comment Spec In Lab Rosa Cornejo MD CHEMISTRY ORDERABLE S Performing Organization Address City/[facility]/ZIP Co de Phone Number [facility] [place] [address] * Magnesium (10/30/2023 10:05 PM EDT) Magnesium 0.86 0.69 - 1.07 mmol/L [facility] Blood 10/30/2023 10:0 5 PM EDT 10/30/2023 10:12 PM EDT Narrative Resulting Agency Comment Spec In Lab Rosa Cornejo MD CHEMISTRY ORDERABLE S Performing Organization Address City/[facility]/ZIP Co de Phone Number [facility] [place] [address] * (ABNORMAL) Troponin (10/30/2023 10:05 PM EDT) [facility] Troponin-T, High Sensitivity 214(H) <=14 ng/L [facility] Comment: This patient's troponin T [...] troponin value can be found in the [facility] Test Catalog [facility] Test Catalog Reference: [facility] [place] [facility] Definition of Myocardial Infarction. Journal of the [employer] 2018;72:9923-2519 Blood 10/30/2023 10:0 5 PM EDT 10/30/2023 10:12 PM EDT Narrative Resulting Agency Comment Spec In Lab Rosa Cornejo MD CHEMISTRY ORDERABLE S [facility] [place] [address] * EKG 12 Lead (10/30/2023 8:21 PM EDT) [facility] Ventricular rate 49 BPM MUSE SYSTEM Atrial Rate 49 BPM MUSE SYSTEM P-R Interval 230 ms MUSE SYSTEM QRS Duration 96 ms MUSE SYSTEM Q-T Interval 526 ms MUSE SYSTEM QTC Calculated (Bezet) 475 ms MUSE SYSTEM Calculated P [place] 98 degrees MUSE SYSTEM Calculated R [place] -48 degrees MUSE SYSTEM Calculated T [place] -51 degrees MUSE SYSTEM INTERPRETATION Sinus bradycardia with 1st degree A-V block Incomplete right bundle branch block Left anterior fascicular block Moderate voltage criteria for LVH, may be normal variant ( R in aVL , [place] product ) T wave abnormality, consider inferior [...] OPEN, Routine 1020 (Given - Provider: Lucretia Thuramn RN) potassium chloride ER (Klor-Con M) crystal [...] (Intra-Procedure), Routine 1346 (Given - Provider: Jason Jimeens RN)1455 (Given - Provider: Jean Oliveira RN) [...] last 24 to 72 hours., Routine 1333 ([facility] Hold - Provider: Admin Adt - Reason: Transfer to a Procedural area)1548 ([facility] Unhold - Provider: Admin Adt) sodium chloride 0.9 % (flush) (BD PosiFlush Normal Saline 0.9) flush 5-20 mL 5-20 mL, Intravenous, EVERY 1 MIN PRN, Starting on 10/30/23 at 2208, Until Amna 11/03/23 at 1913, flush, Flush pertains to all indwelling lines. Flush per protocol found in the job aid using the link provided on this medication record., Routine 1333 ([facility] Hold - Provider: Admin Adt - Reason: Transfer to a Procedural area)1548 ([facility] Unhold - Provider: Admin Adt) documented in this encounter Additional Health Concerns Infection Onset Date Last Indicated Resolved Time Rule Out Respiratory 11/02/2023 11/02/2023 024 12:22 PM EDT Rule Out COVID-19 11/02/2023 11/02/2023 11/02/2023 12:22 PM EDT documented as of this encounter Care Teams Ep Technologist Relationship Specialty Start Date End Date Rosie Mathews MD [address] [place] [address] PCP - General Family Medicine 11/25/17 11/23/23 documented as of this encounter
--- OUTSIDE RECORDS SUMMARY | 2024-02-06 10:56 | XMS_ITS | Encounter Summary ---
Author Organization [facility] Address [facility] [place] [address] Care Team Providers Care Pile Fabric Knitter Name Role Phone Rosie Mathews MD Primary Care Provider [phone] Reason for Visit * Consultation (Routine) - Closed Specialty Diagnoses / Procedures Referred By Contbruce hunt Referred To Contact Audiology Diagnoses Hearing assessment and treatment options Karson John MD [address] [place] [address] [facility] Audiology [address] [place] [phone] Referral ID Status Reason Start Date Expiration Date V isits Requested Visits Authorized [id number] Closed Consult, Test & Treat Connection Center 11/22/2017 11/22/2018 1 1 Encounter Details Date Type Department Care Team (Latest Contact Info) Description 11/30/2017 3:15 PM EDT Office Visit Audiology at [address] [address] Georgette Onofre AUD [facility] [place] [address] Sensorineural hearing loss, bilateral; Bilateral [...] Healthcare in-the-ear hearingaids nine years ago in [place], [place]. She stated she continues to experience [...] tone audiogram. SNR loss is the increased difhqx-sw-lyvig ratio required by an individual to understand [...] not hesitate to contact this Section at [phone] if there are questions regarding this report or its recommendations. Romeo Becker [place] [id number] Attachment: audiogram CC: MD Karson Loo MD Laurmarco a Catherine Edvinjonatanjosue [facility] [address] [place] [phone] documented in this encounter Plan of Treatment Upcoming Encounters Date Type Department Care Team (Late st Contact Info) Description 03/29/2024 11:20 AM EDT Office Visit Cardiology at [address] [place] [address] Izaiah Meyer MD [facility] [address] documented as of this encounter Procedures Procedure [...] tinnitus documented in this encounter Care Teams Pile Fabric Knitter Relationship Specialty Start Date End Date Rosie Mathews MD [address] [place] [address] PCP - General Family Medicine 11/25/17 11/23/23 documented as of this encounter
--- OUTSIDE RECORDS SUMMARY | 2024-02-06 10:56 | XMS_ITS | Referral Summary ---
Author Organization [facility] Address [address] [place] [address] Care Team Providers Care Renal Social Worker Name Role Phone Kirsten Bateman MD Primary Care Provider [phone] Allergies Active Allergy Reactions Criticality Noted Date [...] of Treatment Not on file Care Teams Renal Social Worker Relationship Specialty Start Date End Date Kirsten Bateman MD [address] [place] [address] [facility] - General 01/13/10
--- OUTSIDE RECORDS SUMMARY | 2024-02-06 10:56 | XMS_ITS | Encounter Summary ---
Author Organization [facility] [place] [address] Care Team Providers Care Space And Missile Operations Name Role Phone Rosei Mathews MD Primary Care Provider [phone] Encounter Details Date Type Department Care Team (Late st Contact Info) Description 10/30/2023 5:00 PM EDT Ancillary Procedure [place] [phone] Izaiah Meyer MD [facility] [place] [address] Social History Tobacco Use Types Packs/Day Years Used Date Smoking Tobacco: Former Smokeless Tobacco: Never Alcohol Use Standard Drinks/Week Comments Not Currently 0 (1 standard drink = 0.6 oz pur e alcohol) [facility] Inpatient Questions Answer Date Recorded Does Anyone [...] AM EDT Office Visit Cardiology at [address] [place] [address] Izaiah Meyer MD [facility] [place] [address] documented as of this encounter Procedures Procedure Name Priority Date/Time Associated Diagnosis Comments FILM LIBRARY STORAGE ONLY CT CHEST Routine 10/30/2023 4:59 PM EDT documented in this encounter Results * Film Library- Storage Only CT Chest (10/30/2023 4:59 PM EDT) Narrative [facility] 10/30/2023 4:59 PM EDT This exam is auto-finalizing. It's purpose is for storage only. Izaiah Meyer MD IMG FILM LIBRARY ORD ERABLES Performing Organization Address City/State/[facility] Co de Phone Number [place], [place] documented in this encounter Visit Diagnoses Not on filedocumented in this encounter Care Teams Space And Missile Operations Relationship Specialty Start Date End Date Rosie Mathews MD [address] [place] [address] PCP - General Family Medicine 11/25/17 11/23/23 documented as of this encounter
--- OUTSIDE RECORDS SUMMARY | 2024-02-06 10:56 | XMS_ITS | Clinical Summary ---
Author Organization [facility] Address [address] [place] [address] Care Team Providers Care Account Relationship Manager Name Role Phone Kirsten Bateman MD Primary Care Provider [phone] Allergies Active Allergy Reactions Criticality Noted Date [...] COVID-19 Vaccine (2022-24 season) 2023 Care Teams Account Relationship Manager Relationship Specialty Start Date End Date Kirsten Bateman MD [address] [place] [phone] PCP - General 01/13/10
--- OUTSIDE RECORDS SUMMARY | 2024-02-06 10:56 | XMS_ITS | Encounter Summary ---
Author Organization [facility] Address [facility] [place] [address] Care Team Providers Care Antique Furniture Repairer Name Role Phone Rosie Mathews MD Primary Care Provider [phone] Encounter Details Date Type Department Care Team (Late st Contact Info) Description 10/30/2023 [place] [address] Jose Lee MD [facility] [place] [address] Social History Tobacco Use Types Packs/Day Years [...] Date: 10/30/2023 Referring Provider: Bree Patient Location: [facility] HPI: 83 yoF w/ PMHx of HTN, [...] in the patient condition. Jose Lee MD Network Systems Analyst documented in this encounter Plan of Treatment Upcoming Encounters Date Type Department Care Team (Late st Contact Info) Description 03/29/2024 11:20 AM EDT Office Visit Cardiology at [address] [place] [address] Izaiah Meyer MD [facility] [place] [address] documented as of this encounter Visit Diagnoses Not on filedocumented in this encounter Care Teams Antique Furniture Repairer Relationship Specialty Start Date End Date Rosie Mathews MD [address] [place] [address] PCP - General Family Medicine 11/25/17 11/23/23 documented as of this encounter
--- OUTSIDE RECORDS SUMMARY | 2024-02-06 10:56 | XMS_ITS | Encounter Summary ---
Author Organization [facility] Address [facility] [place] [address] Care Team Providers Care Car Sealer Name Role Phone Rosie Mathews MD Primary Care Provider [phone] Encounter Details Date Type Department Care Team (Late st Contact Info) Description 10/30/2023 External Results Transfer Center [facility] [place] [address] Social History Tobacco Use Types Packs/Day Years Used Date Smoking Tobacco: Former Smokeless Tobacco: Never Alcohol Use Standard Drinks/Week Comments Not Currently 0 (1 standard drink = 0.6 oz pur e alcohol) [facility] Utilities Answer Date Recorded In the past 12 months has e Charge[employer], gas, oil, or water [employer] threatened to shut off services in your [...] 11:20 AM EDT Office Visit Cardiology at [address] [address] Izaiah Meyer MD [facility] [place] [address] documented as of this encounter Procedures Procedure [...] on filedocumented in this encounter Care Teams Car Sealer Relationship Specialty Start Date End Date Rosie Mathews MD [address] [place] [address] PCP - General Family Medicine 11/25/17 11/23/23 documented as of this encounter
--- OUTSIDE RECORDS SUMMARY | 2024-02-06 10:56 | XMS_ITS | Encounter Summary ---
Author Organization [facility] [place] [address] Care Team Providers Care Computer System Specialist Name Role Phone Rosie Mathews MD Primary Care Provider [phone] Reason for Visit * Auth/Cert (Routine) Specialty Diagnoses / Procedures Referred By Contac t Referred To Contact Diagnoses Unstable angina Procedures [facility] [employer] [employer] [facility] [employer] [facility] [employer] [facility] Referral ID Status Reason Start Date Expiration Date Visits Re quested Visits Authorized [id number] 1 1 Encounter Details Date Type Department Care Team (Latest Contact Info) Description 10/30/2023 5:00 PM EDT - 10/30/2023 5:10 PM EDT Hospital En[place] [phone] Rosa Menjivar MD [facility] [place] [address] Discharge Disposition: Home Social History Tobacco Use Types Packs/Day Years Used Date Smoking Tobacco: Former Smokeless Tobacco: Never Alcohol Use Standard Drinks/Week Comments Not Currently 0 (1 standard drink = 0.6 oz pur e alcohol) [facility] Inpatient Questions Answer Date Recorded Does [...] 11:20 AM EDT Office Visit Cardiology at [address] [place] [address] Izaiah Meyer MD [facility] [place] [address] documented as of this encounter Visit Diagnoses Not on filedocumented in this encounter Care Teams Computer System Specialist Relationship Specialty Start Date End Date Rosie Mathews MD [address] [place] [address] PCP - General Family Medicine 11/25/17 11/23/23 documented as of this encounter
--- OUTSIDE RECORDS SUMMARY | 2024-02-06 10:56 | XMS_ITS | Encounter Summary ---
Author Organization [facility] Address [address] [place] [address] Care Team Providers Care Stock Tracer Name Role Phone Kirsten Bateman MD Primary Care Provider [phone] Reason for Visit * Reason Comments Hearing Loss tinnitus Encounter Details Date Type Department Care Team (Latest Contact Info) Description 01/15/2010 10:10 EDT Office Visit [address] [address] Unknown, ProviderMD Ray Farooq MD [address] [place] [address] [address] Sensorineural hearing loss, bilateral; Subjective [...] Ray Farooq MD - 01/28/2010 1108 EDT [facility] ENT PROGRESS/FOLLOWUP NOTE - 01/15/2010 CHIEF COMPLAINT: [...] Farooq MD - Ray Farooq MD - [facility] Job ID: SM Doc ID: [id number] Ext Doc ID: [id number] cc: Kirsten Bateman MD * Ray Farooq [...] tinnitus documented in this encounter Care Teams Stock Tracer Relationship Specialty Start Date End Date Kirsten Bateman MD [address] [place] [address] PCP - General 01/13/10 documented as of this encounter
--- OUTSIDE RECORDS SUMMARY | 2024-02-06 10:56 | XMS_ITS | Encounter Summary ---
Author Organization [facility] Address [address] [place] [address] Care Team Providers Care Micromatic Hone Operator Name Role Phone Unavailable Primary Care Provider Unavailabl e Encounter Details Date Type Department Care Team (Late st Contact Info) Description 01/10/2008 Before PRISM Converted Visit (Maple) [facility] - Maple conversion [address] [place] [address] Ray Farooq MD [address] [place] [address] Social History Tobacco Use Types Packs/Day Years Used Date Smoking Tobacco: Never Assessed Sex and Gender Information Value Date Recorded Sex Assigned at Not on file Gender Identity Not on file Sexual Orientation Not on file documented as of this encounter Consult Notes * Ray Farooq MD - 03/21/2009 0063 EDT [facility] CONSULTATION - 01/10/2008 Kirsten Bateman MD [facility] [address] [place] [address] Bateman: Chief complaint: Hearing loss. History of present illness: Ttack-acwkq-gtob-old female with along history of bilateral hearing [...] is a nonsmoker, nondrinker. She lives in [place]. Review of systems is significant for allergies, [...] Tosin Farooq MD - [facility] Job ID: [id number] Doc ID: [id number] cc: Kirsten Bateman MD cc: Kirsten Bateman MD documented in this encounter Plan of Treatment Not on file documented as of this encounter Visit Diagnoses Not on filedocumented in this encounter
--- OUTSIDE RECORDS SUMMARY | 2024-02-06 10:56 | XMS_ITS | Encounter Summary ---
Author Organization [facility] [place] [address] Care Team Providers Care Biological Inspector Name Role Phone Rosie Mathews MD Primary Care Provider [phone] Reason for Visit * Auth/Cert (Routine) Specialty Diagnoses / Procedures Referred By Contbruce t Referred To Contact Diagnoses Unstable angina Chest pain NSTEMI Procedures CARDIAC CATHETERIZATION Rosa Dewey MD [facility] [place] [address] [facility] Referral ID Status Reason Start Date Expiration Date Visits Re quested Visits Authorized [id number] 1 1 Encounter Details Date Type Department Care Team (Late st Contact Info) Description 11/01/2023 3:33 PM EDT - 11/01/2023 5:03 PM EDT [place] [address] Rosa Dewey MD [facility] [address] [place], [place] [id number] CARDIAC CATHETERIZATION Social History Tobacco Use Types Packs/Day Years Used Date Smoking Tobacco: Former Smokeless Tobacco: Never Alcohol Use Standard Drinks/Week Comments Not Currently 0 (1 standard drink = 0.6 oz pur e alcohol) [facility] Utilities Answer Date Recorded In the past [...] for hypertension and hyperlipidemia who presented to [facility] as a transfer from [facility] as a possible STEMI alert with acute onset chest pain. The patient reports that her symptoms initially began on Tuesday when she was walking to [facility] and experienced bilateral arm heaviness while walking with no other symptoms. Then, this afternoon shereports developing bilateral achy shoulder pain and nonradiating substernal left-sided chest pressure that was 7/10 in severity after coming home from [facility]. The patient denies any associated fevers, chills, [...] on repeat, her TRU resolved. Cardiology at [facility] was consulted for transfer; the patient was loaded with aspirin 324 mg and ticagrelor 180 mg, started on a heparin drip, and given nitroglycerin with improvement in chest pain. Upon arrival to [facility], the patient was taken directly to the [facility]. Two lesions were discovered: one in the prox RCA (felt to almost be a RECREATION PROGRAM COORDINATOR but they were able to wire, balloon, [...] dose administered prior to arrival in the cath lab nurse. Recommended anti-platelet/anti-thrombotic regimen: Continue aspirin 81 mg [...] and low lung volumes. Findings similar to chief drafter radiograph from CT 10/30/2023. Pending Studies and [...] 10:40 AM Izaiah Meyer MD Cardiology at [place] Arrive at: [facility] [address] [phone] Future Orders Complete By Expires Referral to Cardiac Rehab [[id number] Custom] As directed Process Instructions: If no progress note charted, please enter Clinical details in comments. Scheduling Instructions: Questions: My question or request is: STEMI. Cardiac rehab at [facility]. Referral to Home Health [[id number] Custom] As directed Process Instructions: If no progress note charted, please enter Clinical details in comments. Scheduling Instructions: Comments: Please evaluate Adin Santos for admission to Home Health. [address] [facility] [address] (home) Date of : 1940 Inpatient DOCUMENTATION FOR VNA SERVICES (INCLUDING THOSE PATIENTS WITH MEDICARE COVERAGE REQUIRING HOME VNA SERVICES AND/OR HOSPICE SERVICES) PATIENT'S LOCATION: Adin Santos [address] [facility] [address] (home) Cell: Telephone Information: Carton Maker's Name: self In discussion with the attending physician, it is certified that this patient is under their care and that they, or a Nurse Practitioner, Clinical Nurse specialist or Physician Paint Grinder [employer] who is working directly with them, had [...] regarding health issues HOME HEALTH CARE AGENCY: [facility] [address] [address] START OF CARE: within 24-48 hours of [...] Rosie Mathews MD [address] / [facility] [address] . All A agencies which [...] MD / Dr. Masood Pierson [address] [place] [address] 11/09/23 1:55 PM arrival for 2:10 PM appointment Wind Technician: Izaiah Meyer MD [address] [place] [address] , 11/24/2023 10:40 AM Your Inpatient Medical Team at [facility] Name(s) of your inpatient provider(s): Attending physician: Rosa Hugo MD Resident physicians: Emile Robles MD; Elmer Tamez MD If you have non-emergent questions, prior to your follow-up visit call: Tuesday-Tuesday between the hours of 8AM-5PM please call the Cardiology Clinic [phone] to speak with a nurse. All other hours please call the Hospital Drywaller [phone] and ask to speak to the floor coverer on-call. Your Primary Care Provider Rosie Mathews MD [phone] For questions regarding this document or issues relating to this hospitalization on the Medical Service, please contact your inpatient physician through the [facility] Drywaller . Issues afterhours and on weekends will be handled by the Wind Technician staff on-call. Associated attestation - Rosa Hugo [...] Mathews MD / Dr. Masood Pierson [address] [place] [address] 11/09/23 1:55 PM arrival for 2:10 PM appointment Wind Technician: Izaiah Meyer MD [address] [place] [address] , 11/24/2023 10:40 AM Your Inpatient Medical Team at [facility] Name(s) of your inpatient provider(s): Attending physician: Rosa Hugo MD Resident physicians: Emile Robles MD; Elmer Tamez MD If you have non-emergent questions, prior to your follow-up visit call: Tuesday-Tuesday between the hours of 8AM-5PM please call the Cardiology Clinic [phone] to speak with a nurse. All other hours please call the Hospital Drywaller [phone] and ask to speak to the floor coverer on-call. Your Primary Care Provider Rosie Mathews MD [phone] documented in this encounter Medications at Time [...] for hypertension and hyperlipidemia who presented to [facility] for hypertension and hyperlipidemia who presented to [facility] [...] Resident on Cardiology Service Cardiology S1 (Pager [phone]) Note written in conjunction with Claudio Perla [facility] Medical Student, MS3 Associated attestation - [...] Nirmala Webb - 11/01/2023 11:25 AM EDT Motorbike Courier Encounter Note Patient Name: Adin Santos : [id number] MR#: [id number] Admit Date: 10/30/2023 5:11 PM Hospital Day 2 days Narrative: Self initiated visit to patient for Spiritual support in a regular unit rounds. Assessment: Patient is in the bathroom at the time of this visit. Not a good time for Vehicle Dynamics Engineer visit. Intervention and Outcome: An attempted visit [...] for hypertension and hyperlipidemia who presented to [facility] [...] and low lung volumes. Findings similar to chief drafter radiograph from CT 10/30/2023. Scheduled Medications: [AUG [...] for hypertension and hyperlipidemia who presented to [facility] [...] Resident on Cardiology Service Cardiology S1 (Pager [phone]) Note written in conjunction with Claudio Perla [facility] Medical Student, MS3 Associated attestation - [...] for hypertension and hyperlipidemia who presented to [facility] as a transfer from [facility] as a possible STEMI alert with acute onset chest pain. Active Problems: Active Hospital Problems Diagnosis Unstable angina Resolved Hospital Problems No resolved problems to display. 24 hr events: - Cath'd yesterday with lesion in the proximal RCA (initially thought it was RECREATION PROGRAM COORDINATOR but they were ableto wire, balloon and [...] and low lung volumes. Findings similar to chief drafter radiograph from CT 10/30/2023. TTE (10/30): Interpretation [...] for hypertension and hyperlipidemia who presented to [facility] [...] Resident on Cardiology Service Cardiology S1 (Pager [phone]) Note written in conjunction with Claudio Perla [facility] Medical Student, MS3 Associated attestation - [...] PCP: Rosie Mathews MD PCP phone number: [phone] Date of Admission: 10/30/2023 ( Hospital Day 0 days ) Attending:Rosa Cornejo MD ID: Adin Santos is a 83 y.o. female PMH significant for hypertension and hyperlipidemia who presented to [facility] as a transfer from [facility] as a possible STEMI alert with acute onset chest pain. The patient reports that her symptoms initially began on Tuesday when she was walking to [facility] and experienced bilateral arm heaviness while walking with no other symptoms. Then, this afternoon shereports developing bilateral achy shoulder pain and nonradiating substernal left-sided chest pressure that was 7/10 in severity after coming home from [facility]. The patient denies any associated fevers, chills, [...] on repeat, her TRU resolved. Cardiology at [facility] was consulted for transfer; the patient was loaded with aspirin 324 mg and ticagrelor 180 mg, started on a heparin drip, and given nitroglycerin with improvement in chest pain. Upon arrival to [facility], the patient was taken directly to the [facility]. 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 Findings similar to chief drafter radiograph from CT 10/30/2023. Assessment & Plan: Adin Santos is a 83 y.o. female PMH significant for hypertension and hyperlipidemia who presented to [facility] [...] with HTN HLD transferred with chest from [facility]. BP 217/68, HR [address] [...] information for follow-up Home Health & Hospice, [place] [address] TANESHA BOYCE confirmed with [facility] that they will see the patient within 24-48 hours of discharge for start of care. Transportation: family or friend will provide Wheelchair van/Ambulance? No Functional status prior to admission: Assistive Equipment Home Environment: Others in the home: alone. Current Living Arrangements: home/apartment/condo. Accessibility Concerns:1st floor apartment in chcf community; handicapped accessible. Current Functional Ability: Assistive Equipment DME used at home: cane - straight, grab bar - tub/shower, grab bar - toilet, raised toilet seat DME Needed at Discharge: N/A Patient is insured through: Primary Insurance: [employer] MANAGED MEDICARE Payor: [employer] MANAGED MEDICARE / Plan: [employer] MANAGED MEDICARE PPO / Product Type: *No [...] in the room. Electrolytes replaced, see MAR. 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 laborer sites remained C/D/I with baseline ecchymosis unchanged. Pt complained of back pain, lidocaine patch given. Right IV infiltrated during infusion, patient is marked with sharpie, IV removed. See flowsheet for I+O's and safety rounding. Patient is able to make needs known and call capps within reach. PLAN MOVING FORWARD: Monitor Tele, control BP, monitor cath lab nurse sites, D/C Planning INDIVIDUALIZED FALL PREVENTION INTERVENTIONS: [...] in an outpatient cardiac rehabilitation program at [facility] was discussed. Patient agrees to a referral [...] and above on RA. PT went to cath lab nurse today. Left fem site oozed throughout shift, [...] MOVING FORWARD: Monitor Tele, control BP, monitor cath lab nurse sites, D/C Planning INDIVIDUALIZED FALL PREVENTION INTERVENTIONS: [...] Admitted From: Transfer from another hospital Location: [facility] Reason for Hospitalization: chest pain Covid Vaccination Status: 1st, 2nd & booster Past medical History: No past medical history on file. Hospitalizations Within the Past 30 Days: no previous admission in last 30 days Current Decision-Making Capacity: Self If AD's have not been completed the following surrogate would be surrogate decision maker per [place] surrogate decision making law. (Only good for 180 days) Any patient receiving care in [place] must abide by [place] law. The hierarchy for surrogate decision making [...] (i) The agent with financial power of commercial attorney or a conservator appointed in accordance [...] Arrangements: home/apartment/condo. Accessibility Concerns:1st floor apartment in chcf community; handicapped accessible. In the last 12 [...] has the electric, gas, oil, or water [employer] threatened to shut off services in your [...] toilet seat Home Address confirmed as: [address] [facility] [address] Social & Family Supports: All names listed below confirmed with patient as current and correct Extended Emergency Contact Information Primary Emergency Contact: Iris Downing Address: [address] [place], [place] [address] [place] [address] Mobile Relation: Child Secondary Emergency Contact: Karen More Address: [address] [facility] [address] [facility] Mobile Relation: Child Current Care Provided by: self Provides Primary Care For: no one Caregiver if needed: child(emmanuel), adult Quality of Family relationships: involved, supportive Community Resources being provided currently: other (see comments) (receives [facility] services at home (1xweekly)) Behavioral [...] Specific Information: N/A Health/Prescription Coverage: Primary Insurance: [employer] MANAGED MEDICARE Payor: [employer] MANAGED MEDICARE / Plan: [employer] MANAGED MEDICARE PPO / Product Type: *No Product type* / Secondary Insurance: N/A Prescription Coverage: Yes Preferred Pharmacy: [id number] - [place], [place] - [address] [place] [address] [place] Status: Patient is a : No Primary Care Provider listed: Masood Pierson MD [phone] Patient/Caregiver Goals of Treatment: home when MR Potential Needs for Transition of Care: home health care Agency Referrals: Not Applicable I have met with the patient to: discuss discharge planning needs. provide the [facility], Office of Care Management letter from the Bunch Maker pertaining to rehab referrals. provide a letter describing our affiliations within the [facility] and educate about their right to choose where referrals are sent. provide a list of Home Health Agencies / Durable Medical Equipment vendors which serve their preferred geographic area. provided patient with [facility] Star Quality Rating handout. They have requested referrals to: [facility] [address] [place] [address] Note routed to a News Production Assistant who will communicate referrals to facilities [...] results. PO hydralazine added for BP control. 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 laborer sites remain C/D/I, ecchymosis unchanged th roughout shift. See flowsheet for I+O's and safety rounding. Patient is able to make needs known and call capps within reach. PLAN MOVING FORWARD: Monitor Tele, control CP and BP, NPO at MD for cath, monitor cath lab nurse sites, D/C Planning INDIVIDUALIZED FALL PREVENTION INTERVENTIONS: [...] AM EDT Office Visit Cardiology at [address] [place] [address] Izaiah Meyer MD [facility] [place] [address] Scheduled Referrals Name Type Priority Associated Diagnoses [...] 3:46 AM EDT) Neutrophil % 63.3 % [facility] Neutrophil Absolute 5.28 1.70 - 6.10 x10(3)/mc L [facility] Lymph % 15.2 % [facility] Lymphocytes Abs 1.3 0.9 - 3.2 x10(3)/mc L [facility] Monocyte % 16.9 % [facility] Monocyte Abs 1.4(H) 0.3 - 0.9 x10(3)/mc L [facility] Eos % 3.7 % [facility] Eosinophils Abs 0.3 0.0 - 0.4 x10(3)/ L [facility] Basophil % 0.5 % [facility] Baso Absolute 0.0 0.0 - 0.1 x10(3)/mc L [facility] Immature Gran % 0.40 % [facility] [...] Lab Qamar Gallardo MD HEMATOLOGY ORDERABLE S [facility] [place] [address] * (ABNORMAL) Hemogram (11/03/2023 3:46 AM EDT) [...] MEDICAL [facility]ENTER [facility] NRBC% auto 0.0 % [facility] NRBC Absolute 0.000 0.000 - 0.000 x10(3)/mc L [facility] Blood 11/03/2023 3:46 AM EDT 11/03/2023 4:11 AM EDT Narrative Resulting Agency Comment Spec In Lab Qamar Gallardo MD HEMATOLOGY ORDERABLE S Performing Organization Address City/[facility]/ZIP Co de Phone Number [facility] [place] [address] * Phosphorus (11/03/2023 3:46 AM EDT) Pathologist [facility] Phosphorus 3.2 2.5 - 4.5 mg/dL [facility] Comment:result rechecked-KS Blood 11/03/2023 3:46 AM EDT 11/03/2023 4:11 AM EDT Narrative Resulting Agency Comment Spec In Lab Rosa Cornejo MD CHEMISTRY ORDERABLE S Performing Organization Address [facility] Co de Phone Number [facility] [place] [address] * Magnesium (11/03/2023 3:46 AM EDT) [facility] Magnesium 0.90 0.69 - 1.07 mmol/L [facility] Blood 11/03/2023 3:46 AM EDT 11/03/2023 4:11 AM EDT Narrative Resulting Agency Comment Spec In Lab Rosa Cornejo MD CHEMISTRY ORDERABLE S Performing Organization Address [facility] Co de Phone Number [facility] [place] [address] * (ABNORMAL) Basic Metabolic Panel (non-fasting) (11/03/2023 3:46 AM EDT) Pathologist [facility] Glucose 105 65 - 199 mg/dL [facility] [...] CHEMISTRY ORDERABLE S [facility] [place] [address] * EKG 12 Lead (11/02/2023 12:44 PM EDT) Ventricular rate 83 BPM MUSE SYSTEM Atrial Rate 83 BPM MUSE SYSTEM P-R Interval 216 ms MUSE SYSTEM QRS Duration 90 ms MUSE SYSTEM Q-T Interval 384 ms MUSE SYSTEM QTC Calculated (Bezet) 451 ms MUSE SYSTEM Calculated P [place] 92 degrees MUSE SYSTEM Calculated R [place] -51 degrees MUSE SYSTEM Calculated T [place] -33 degrees MUSE SYSTEM INTERPRETATION Sinus rhythm with 1st degree A-V block with Premature atrial complexes Left axis deviation Moderate voltage criteria for LVH, may be normal variant ( R in aVL , Ifeanyi product ) Anterolatera l infarct (cited on or before 01-NOV-2023) Abnormal ECG When compared with ECG of 01-NOV-2023 22:10, Premature atrial complexes are now Present [place] interval has increased Vent. rate has decreased BY ??56 BPM Confirmed by MD Kevin, Esteban ([id number]) on 11/02/2023 1:32:10 PM MUSE SYSTEM 11/02/2023 12:4 4 PM EDT 11/02/2023 1:32 PM EDT Rosa Hugo MD ECG ORDERABLES MUSE SYSTEM * (ABNORMAL) Urinalysis Microscopic Exam (11/02/2023 11:40 AM EDT) RBC, Urine <1 0 - 4 /HPF [facility] Comment: Interpret results with caution, microscopic results are from suboptimal specimen volume WBC, Urine 16(H) 0 - 5 /HPF [facility] Comment: Interpret results with caution, microscopic results are from suboptimal specimen volume Bacteria, Urine Many(A) None /HPF [facility] Squamous Epithelial Cells Raw Data, Urine 10(H) <=4 /HPF [facility] Hyaline Casts, Urine 2 0 - 2 /LPF [facility] Comment: Interpret results with caution, microscopic results are from suboptimal specimen volume Clean Catch Urine 11/02/2023 11:40 AM EDT 11/02/2023 12:05 PM EDT Narrative Resulting Agency Comment Spec In Lab Elmer Tamez MD URINE ORDERABLES [facility] [place] [address] * (ABNORMAL) Urinalysis with reflex Culture (11/02/2023 [...] CENTER LABORAT[facility] Leukocytes, Urine Dipstick Small(A) Negative [facility] Appearance, Urine Dipstick Cloudy(A) Clear [facility] Specific [place] Urine Automated >=1.030(A) 1.005 - 1.030 [facility] Color, Urine Dipstick Dark Yellow Yellow [facility] Reflex to Culture Yes [facility] Clean Catch Urine 11/02/2023 11:40 AM EDT 11/02/2023 12:04 PM EDT Narrative Resulting Agency Comment Spec In Lab Rosa Hugo MD URINE ORDERABLES [facility] [place] [address] * Respiratory Panel PCR (11/02/2023 10:15 AM EDT) Respiratory Panel Source BOOKING SUPERVISOR Swab [facility] Respiratory Panel PCR Negative Negative [facility] Comment: Respiratory Panels are performed on the [employer], using multiplexed PCR nucleic acid detection. ??Negative [...] performed using the BioFire Respiratory Panel 2.1 (Hotelicopter) as authorized by the FDA issued Emergency Use Authorization (EUA). This panel also tests for multiple other viral and bacterial pathogens. This assay is intended for In-vitro Diagnostic (IVD) use with nasopharyngeal swabs in viral transport media. The assay is performed based on the instructions for use and additional guidance provided by the FDA. Testing is performed in laboratories within the [facility], each of which is certified under [...] fact sheets at the following FDA website: https://www.fda.gov/medical-devices/izxusjndpfz-iestvxs-9672-xrenu-19-jekyqjvib- use-a fchvsshvrwpzd-djxtwfa-igagias/qgmju-gjwtnqedugs-xcan Human Metapneumovirus Not Detected Not Detected [facility] [...] GEN ERAL ORDERABLES [facility] [place] [address] * XR Chest One View (11/02/2023 2:51 AM EDT) WORKSTATION ID [id number] RAD Anatomical Region Laterality Modality Chest N/A [...] who have questions please contact the health life care planner that requested your imaging first. ? Narrative [...] patients who have questions please contactthe health life care planner that requested your imaging first. Rosa Hugo MD IMG DX ORDERABLES * (ABNORMAL) Differential, Automated (11/02/2023 12:35 AM EDT) Neutrophil % 76.5 % [facility] Neutrophil Absolute 7.69(H) 1.70 - 6.10 x10(3)/mc L [facility] Lymph % 8.3 % [facility] Lymphocytes Abs 0.8(L) 0.9 - 3.2 x10(3)/mc L [facility] Monocyte % 12.9 % [facility] Monocyte Abs 1.3(H) 0.3 - 0.9 x10(3)/mc L [facility] Eos % 1.4 % [facility] Eosinophils Abs 0.1 0.0 - 0.4 x10(3)/mc L [facility] Basophil % 0.4 % [facility] Baso Absolute 0.0 0.0 - 0.1 x10(3)/mc L [facility] Immature Gran % 0.50 % [facility] Comment: Immature granulocytes(IG's)percentage and absolute count will include metamyelocytes, myelocytes, and promyelocytes. Blood smears from CBCs yielding IG's will be scanned manually for concordance. If this scan disagrees with the automated IG or if promyelocytes are noted, a manual differential will be performed. Immature Gran Absolute 0.05(H) 0.00 - 0.04 x10(3)/mc L [facility] Blood 11/02/2023 12:3 5 AM EDT 11/02/2023 12:43 AM EDT Narrative Resulting Agency Comment Spec In Lab Qamar Gallardo MD HEMATOLOGY ORDERABLE S [facility] [place] [address] * (ABNORMAL) Hemogram (11/02/2023 12:35 AM EDT) White Blood Cell 10.0(H) 4.0 - 9.5 x10(3)/ L [facility] Red Blood Cell 4.06 4.00 - 5.21 x10(6)/mc L [facility] Hemoglobin 13.8 11.7 - 15.5 g/dL [facility] Hematocrit 39.8 35.7 - 45.8 % [facility] Mean Cell Volume 98.0(H) 82.6 - 94.4 fL [facility] Mean Cell Hemoglobin 34.0(H) 27.1 - 32.0 pg [facility] Mean Cell Hemoglobin Concentration 34.7 31.7 - 35.0 g/dL [facility] Platelet 198 145 - 357 x10(3)/mc L [facility] RDW Standard Deviation 52.1(H) 37.0 - 46.0 fL [facility] RDW coefficient of variation 14.3(H) 11.5 - 14.1 % [facility] Mean Platelet Volume 11.4 7.6 - 12.9 fL [facility] NRBC% auto 0.0 % [facility] NRBC Absolute 0.000 0.000 - 0.000 x10(3)/mc L [facility] Blood 11/02/2023 12:3 5 AM EDT 11/02/2023 12:43 AM EDT Narrative Resulting Agency Comment Spec In Lab Qamar Gallardo MD HEMATOLOGY ORDERABLE S [facility] [place] [address] * (ABNORMAL) Phosphorus (11/02/2023 12:35 AM EDT) Phosphorus 1.6(L) 2.5 - 4.5 mg/dL [facility] Blood 11/02/2023 12:3 5 AM EDT 11/02/2023 12:43 AM EDT Narrative Resulting Agency Comment Spec In Lab Rosa Cornejo MD CHEMISTRY ORDERABLE S Performing Organization Address City/[facility]/ZIP Co de Phone Number [facility] [place] [address] * Magnesium (11/02/2023 12:35 AM EDT) Magnesium 0.87 0.69 - 1.07 mmol/L [facility] Blood 11/02/2023 12:3 5 AM EDT 11/02/2023 12:43 AM EDT Narrative Resulting Agency Comment Spec In Lab Rosa Cornejo MD CHEMISTRY ORDERABLE S Performing Organization Address City/[facility]/ZIP Co de Phone Number [facility] [place] [address] * Basic Metabolic Panel (non-fasting) (11/02/2023 12:35 AM EDT) Glucose 125 65 - 199 mg/dL [facility] Comment:Diabetes: >=200 mg/d L plus symptoms Blood Urea Nitrogen 9 8 - 18 mg/dL [facility] Creatinine 0.83 0.70 - 1.20 mg/dL [facility] Sodium 136 135 - 145 mmol/L [facility] Potassium 3.6 3.5 - 5.0 mmol/L [facility] Comment: Please note: ??Patients with WBC >100,000 may have falsely elevated Potassium levels. ??For accurate Potassium quantification in these patients send serum separator tube (gold top) for subsequent determinations. ??Contact the Clinical Chemistry Laboratory if there are any questions. Chloride 102 98 - 107 mmol/L [facility] Carbon Dioxide 25 22 - 31 mmol/L [facility] Anion Gap 9 5 - 15 mmol/L [facility] Calcium 9.0 8.5 - 10.5 mg/dL [facility] CHEMISTRY ORDERABLE S [facility] [place] [address] * Blood culture (11/02/2023 12:35 AM EDT) Blood Culture No growth at 5 days. [facility] Blood 11/02/2023 12:3 5 AM EDT 11/02/2023 1:55 AM EDT Comment:#2 site ukn Narrative Resulting Agency Comment Spec In Lab Rosa Hugo MD MICROBIOLOGY - BLO OD ORDERABLES Performing Organization Address City/[facility]/ZIP Co de Phone Number [facility] [place] [address] * Blood culture (11/02/2023 12:15 AM EDT) Blood Culture No growth at 5 days. [facility] Blood 11/02/2023 12:1 5 AM EDT 11/02/2023 1:54 AM EDT Comment:#1site unk Narrative Resulting Agency Comment Spec In Lab Rosa Hugo MD MICROBIOLOGY - BLO OD ORDERABLES Performing Organization Address [facility] Co de Phone Number [facility] [place] [address] * EKG 12 Lead (11/01/2023 10:10 PM EDT) Ventricular rate 139 BPM MUSE SYSTEM Atrial Rate 139 BPM MUSE SYSTEM P-R Interval 168 ms MUSE SYSTEM QRS Duration 84 ms MUSE SYSTEM Q-T Interval 286 ms MUSE SYSTEM QTC Calculated (Bezet) 435 ms MUSE SYSTEM Calculated R [place] -59 degrees MUSE SYSTEM Calculated T [place] -27 degrees MUSE SYSTEM INTERPRETATION Mid-RP tachycardia, [...] interpretation Confirmed by fellow MD Bowen Ashley ([id number]) on 11/04/2023 7:57:50 AM Confirmed by MD Carrillo Danette ([id number]) on 11/04/2023 4:32:03 PM MUSE SYSTEM 11/01/2023 10:1 0 PM EDT 11/04/2023 4:32 PM EDT Rosa Cornejo MD ECG ORDERABLES MUSE SYSTEM * (ABNORMAL) Hemogram (11/01/2023 10:06 PM EDT) White Blood Cell 10.4(H) 4.0 - 9.5 x10(3)/mc L [facility] Red Blood Cell 4.11 4.00 - 5.21 x10(6)/mc L [facility] Hemoglobin 14.0 11.7 - 15.5 g/dL [facility] Hematocrit 41.1 35.7 - 45.8 % [facility] Mean Cell Volume 100.0(H) 82.6 - 94.4 fL [facility] Mean Cell Hemoglobin 34.1(H) 27.1 - 32.0 pg [facility] Mean Cell Hemoglobin Concentration 34.1 31.7 - 35.0 g/dL [facility] Platelet 197 145 - 357 x10(3)/mc L [facility] RDW Standard Deviation 54.0(H) 37.0 - 46.0 [facility] RDW coefficient of variation 14.6(H) 11.5 - 14.1 % [facility] Mean Platelet Volume 11.2 7.6 - 12.9 [facility] NRBC% auto 0.0 % [facility] NRBC Absolute 0.000 0.000 - 0.000 x10(3)/mc L [facility] Blood 11/01/2023 10:0 6 PM EDT 11/01/2023 10:22 PM EDT Narrative Resulting Agency Comment Spec In Lab Rosa Hugo MD HEMATOLOGY ORDERAB LES [facility] [place] [id number] * POCT Glucose (11/01/2023 5:59 PM EDT) Glucose, POC 104 65 - 199 mg/dL [facility] Comment: Supplemental ranges: <140 mg/dL before meals <180 mg/dL all other times of the day Blood 11/01/2023 5:59 PM EDT 11/01/2023 5:59 PM EDT Rosa Huog MD POINT OF CARE TEST ORDERABLES [facility] [place] [address] * POCT Glucose (11/01/2023 5:35 PM EDT) Glucose, POC 85 65 - 199 mg/dL [facility] Comment: Supplemental ranges: <140 mg/dL before meals <180 mg/dL all other times of the day Blood 11/01/2023 5:35 PM EDT 11/01/2023 5:35 PM EDT Rosa Hugo MD POINT OF CARE TEST ORDERABLES [facility] [place] [address] * EKG 12 Lead (11/01/2023 3:22 PM EDT) Ventricular rate 59 BPM MUSE SYSTEM Atrial Rate 59 BPM MUSE SYSTEM P-R Interval 220 ms MUSE SYSTEM QRS Duration 94 ms MUSE SYSTEM Q-T Interval 428 ms MUSE SYSTEM QTC Calculated (Bezet) 423 ms MUSE SYSTEM Calculated P [place] 76 degrees MUSE SYSTEM Calculated R [place] -50 degrees MUSE SYSTEM Calculated T [place] -59 degrees MUSE SYSTEM INTERPRETATION Sinus bradycardia [...] Modality Other Narrative 11/02/2023 4:57 PM EDT ?[facility] ? Cardiac Catheterization/Intervention Report ? Patient Name: Adin Santos. ? Procedure Date: 11/01/2023 ? A #: [id number] ? Primary Physician: Rosa Dewey I ? Case #: [id number] ? File Name: [id number] ? Catheterization Order Number: [id number] ? [facility] ? Final Report [place], [place] ? Patient Name: ? Adin M. Goguen ?ID#: ?[id number] ? : ?1940 ? Procedure Date: ? [...] was designated as ASA Class III. The [facility] clinical ?frailty scale is 4: Vulnerable. ? [...] procedure was Urgent. The indication for ?the cath lab nurse visit is ACS greater than 24 hrs. [...] ??A premounted ? 3.50 x 15 mm [place] (RADHA) was deployed with a maximum ? [...] ? A premounted 3.50 x 15 mm [place] (RADHA) was deployed ? with a maximum [...] dose administered prior to arrival in the cath lab nurse. ?Recommended anti-platelet/anti-thrombotic regimen: ?Continue aspirin 81 mg daily for indefinitely. ?Continue clopidogrel 75 mg daily for 12 months then stop. ?These recommendations are made at the time of the intervention. Patient ?and provider preferences or a changing clinical situation may require ?modification of this regimen. Consult [facility] Interventional Cardiology for [...] Procedure Note Rosa Dewey MD - 12/12/2023 [facility] Cardiac Catheterization/Intervention Report Patient Name: Adin Santos Procedure Date: 11/01/2023 A #: [id number] Primary Physician: Rosa Dewey I Case #: [id number] File Name: [id number] Catheterization Order Number: [id number] [facility] FinalReport [place], [place] Patient Name: Adin Santos ID#:[id number] :1940 Procedure Date: November 01, 2023 Case [...] diagnostic procedure was Urgent. The indicationfor the cath lab nurse visit is ACS greater than 24 hrs. [...] atmospheres. Apremounted 3.50 x 15 mm [place] (RADHA) was deployed with amaximum inflation pressure [...] The lesion was predilated with a 3.00mm [id number] balloon with a maximum inflation pressure of 14atmospheres. A premounted 3.50 x 15 mm [place] (RADHA) wasdeployed with a maximum inflation pressure [...] dose administered prior to arrival in the cath lab nurse. Recommended anti-platelet/anti-thrombotic regimen: Continue aspirin 81 mg daily for indefinitely. Continue clopidogrel 75 mg daily for 12 months then stop. These recommendations are made at the time of the intervention.Patient and provider preferences or a changing clinical situation mayrequire modification of this regimen. Consult [facility] Interventional Cardiologyfor questions. [...] POCT Glucose (11/01/2023 7:06 AM EDT) Pathologist [facility] Glucose, POC 93 65 - 199 mg/dL [facility] Comment: Supplemental ranges: <140 mg/dL before meals <180 mg/dL all other times of the day Blood 11/01/2023 7:06 AM EDT 11/01/2023 7:06 AM EDT Jean Laboy MD POINT OF CARE TEST O RDERABLES [facility] [place] [address] * (ABNORMAL) Differential, Automated (11/01/2023 3:09 AM EDT) Neutrophil % 63.9 % [facility] Neutrophil Absolute 5.54 1.70 - 6.10 x10(3)/mc L [facility] Lymph % 20.0 % [facility] Lymphocytes Abs 1.7 0.9 - 3.2 x10(3)/mc L [facility] Monocyte % 11.9 % [facility] Monocyte Abs 1.0(H) 0.3 - 0.9 x10(3)/ L [facility] Eos % 3.2 % [facility] Eosinophils Abs 0.3 0.0 - 0.4 x10(3)/ L [facility] Basophil % 0.5 % [facility] Baso Absolute 0.0 0.0 - 0.1 x10(3)/ L [facility] Immature Gran % 0.50 % [facility] Comment: Immature granulocytes(IG's)percentage and absolute count will include metamyelocytes, myelocytes, and promyelocytes. Blood smears from CBCs yielding IG's will be scanned manually for concordance. If this scan disagrees with the automated IG or if promyelocytes are noted, a manual differential will be performed. Immature Gran Absolute 0.04 0.00 - 0.04 x10(3)/[facility] Blood 11/01/2023 3:09 AM EDT 11/01/2023 3:29 AM EDT Narrative Resulting Agency Comment Spec In Lab Qamar Gallardo MD HEMATOLOGY ORDERABLE S [facility] [place] [address] * (ABNORMAL) Hemogram (11/01/2023 3:09 AM EDT) White Blood Cell 8.7 4.0 - 9.5 x10(3)/ L [facility] Red Blood Cell 3.72(L) 4.00 - 5.21 x10(6)/[facility] Hemoglobin 12.5 11.7 - 15.5 g/dL [facility] Hematocrit 36.8 35.7 - 45.8 % [facility] Mean Cell Volume 98.9(H) 82.6 - 94.4 fL [facility] Mean Cell Hemoglobin 33.6(H) 27.1 - 32.0 pg [facility] Mean Cell Hemoglobin Concentration 34.0 31.7 - 35.0 g/dL [facility] Platelet 184 145 - 357 x10(3)/mc L [facility] RDW Standard Deviation 53.5(H) 37.0 - 46.0 fL [facility] RDW coefficient of variation 14.6(H) 11.5 - 14.1 % [facility] Mean Platelet Volume 11.3 7.6 - 12.9 fL [facility] NRBC% auto 0.0 % [facility] NRBC Absolute 0.000 0.000 - 0.000 x10(3)/mc L [facility] Blood 11/01/2023 3:09 AM EDT 11/01/2023 3:29 AM EDT Narrative Resulting Agency Comment Spec In Lab Qamar Gallardo MD HEMATOLOGY ORDERABLE S [facility] [place] [address] * Phosphorus (11/01/2023 3:09 AM EDT) Phosphorus 2.5 2.5 - 4.5 mg/dL [facility] Blood 11/01/2023 3:09 AM EDT 11/01/2023 3:29 AM EDT Narrative Resulting Agency Comment Spec In Lab Rosa Cornejo MD CHEMISTRY ORDERABLE S [facility] [place] [address] * Magnesium (11/01/2023 3:09 AM EDT) Magnesium 0.82 0.69 - 1.07 mmol/L [facility] Blood 11/01/2023 3:09 AM EDT 11/01/2023 3:29 AM EDT Narrative Resulting Agency Comment Spec In Lab Rosa Cornejo MD CHEMISTRY ORDERABLE S [facility] [place] [address] * (ABNORMAL) Basic Metabolic Panel (non-fasting) (11/01/2023 3:09 AM EDT) Glucose 100 65 - 199 mg/dL [facility] Comment:Diabetes: >=200 mg/d L plus symptoms Blood Urea Nitrogen 14 8 - 18 mg/dL [facility] Creatinine 0.83 0.70 - 1.20 mg/dL [facility] Sodium 137 135 - 145 mmol/L [facility] Potassium 3.4(L) 3.5 - 5.0 mmol/L [facility] Comment: Please note: ??Patients with WBC >100,000 may have falsely elevated Potassium levels. ??For accurate Potassium quantification in these patients send serum separator tube (gold top) for subsequent determinations. ??Contact the Clinical Chemistry Laboratory if there are any questions. Chloride 105 98 - 107 mmol/L [facility] Carbon Dioxide 24 22 - 31 mmol/L [facility] Anion Gap 8 5 - 15 mmol/L [facility] Calcium 8.6 8.5 - 10.5 mg/dL [facility] [...] MD CHEMISTRY ORDERABLE S Performing Organization Address City/[facility]/ZIP Co de Phone Number [facility] [place] [address] * (ABNORMAL) Troponin (10/31/2023 2:46 PM EDT) Troponin-T, High Sensitivity 544(H) <=14 ng/L [facility] [...] value can be found in the [facility] Laboratory Test Catalog Troponin - [facility] Laboratory Test Catalog Reference: Fourth Stow Definition of Myocardial Infarction. Journal of the [employer] 2018;72:4461-3366 Blood 10/31/2023 2:46 PM EDT 10/31/2023 2:55 PM EDT Narrative Resulting Agency Comment Spec In Lab Jean Laboy MD CHEMISTRY ORDERABLES Performing Organization Address City/[facility]/ZIP Co de Phone Number [facility] [place] [address] * EKG 12 Lead (10/31/2023 1:07 PM EDT) Ventricular rate 54 BPM MUSE SYSTEM Atrial Rate 54 BPM MUSE SYSTEM P-R Interval 218 ms MUSE SYSTEM QRS Duration 92 ms MUSE SYSTEM Q-T Interval 540 ms MUSE SYSTEM QTC Calculated (Bezet) 512 ms MUSE SYSTEM Calculated P [place] 85 degrees MUSE SYSTEM Calculated R [place] -44 degrees MUSE SYSTEM Calculated T [place] -69 degrees MUSE SYSTEM INTERPRETATION Sinus bradycardia [...] (ABNORMAL) Troponin (10/31/2023 11:37 AM EDT) Pathologist [facility] Troponin-T, High Sensitivity 580(H) <=14 ng/L [facility] Comment: [...] value can be found in the [facility] Laboratory Test Catalog Troponin - [facility] Laboratory Test Catalog Reference: Fourth Stow Definition of Myocardial Infarction. Journal of the [employer] 2018;72:3590-9049 Blood 10/31/2023 11:3 7 AM EDT 10/31/2023 11:50 AM EDT Narrative Resulting Agency Comment Spec In Lab Rosa Cornejo MD CHEMISTRY ORDERABLE S [facility] [place] [address] * ECHO COMPLETE (10/31/2023 8:52 AM EDT) Anatomical Region Laterality Modality Cardiac Other 10/31/2023 7:57 AM EDT Narrative 10/31/2023 9:45 AM EDT [address] [place] [address] ? Echocardiogram Report Name: TOM ADIN Dorene ? Study Date: 10/31/2023 07:57 AMBP: 106/76 mmHg ? Patient Location: [address] : 1940 ? Height: 163 cm ? Account: [id number] Age: 83 yrs ? Weight: 76 kg Gender: Female ?BSA: 1.8 m2 Ordering Physician: ROSA DEWEY Referring Physician: OMAIRA GIRON Performed By: HAFSA Carmichael Reason For Study: STEMI Interpreting Fellow: Raymond Warren. Exam Location: [facility]. Interpretation Summary -The left ventricle [...] is no prior echocardiogram for comparison. Procedure Complete-01062. Satisfactory quality. There is sinus bradycardia. Left [...] Note Edgard Wang MD - 10/31/2023 [address] [place] [address] Echocardiogram Report Name: ADIN SANTOS Study Date: 407:57 AMBP: 106/76 mmHg Patient Location: [address] : 1940 Height: 163 cm Account: [id number] Age: 83 yrs Weight: 76 kg Gender: Female BSA: 1.8 m2 Ordering Physician: ROSA DEWEY Referring Physician: OMAIRA GIRON Performed By: HAFSA Carmichael Reason For Study: STEMI Interpreting Fellow: Raymond Warren. Exam Location: [facility]. Interpretation Summary -The left ventricle [...] is no prior echocardiogram for comparison. Procedure Complete-15622. Satisfactory quality. There is sinus bradycardia. Left [...] * (ABNORMAL) Troponin (10/31/2023 8:51 AM EDT) [facility] Troponin-T, High Sensitivity 571(H) <=14 ng/L [facility] Comment: [...] value can be found in the [facility] Laboratory Test Catalog Troponin - [facility] Test Catalog Reference: Fourth Stow Definition of Myocardial Infarction. Journal of the [employer] 2018;72:3062-9096 Blood 10/31/2023 8:51 AM EDT 10/31/2023 9:12 AM EDT Narrative Resulting Agency Comment Spec In Lab Rosa Cornejo MD CHEMISTRY ORDERABLE S Performing Organization Address [facility] Co de Phone Number [facility] [place] [address] * CARDIAC CATHETERIZATION (10/31/2023 8:10 AM EDT) Anatomical Region Laterality Modality Other Narrative 11/07/2023 9:42 AM EDT ?[facility] ? Cardiac Catheterization/Intervention Report ? Patient Name: Adin Santos ? Procedure Date: 10/30/2023 ? A #: [id number] ? Primary Physician: Rosa Dewey I ? Case #: [id number] ? File Name: [id number] ? Catheterization Order Number: [id number] ? [facility] ? Final Report [place], [place] ? Patient Name: ? Adin M. Goguen ?ID#: ?[id number] ? : ?1940 ? Procedure Date: ? [...] was designated as ASA Class III. The [facility] clinical frailty scale ?is 5: Mildly Frail. [...] procedure was Emergent. The indication for ?the cath lab nurse visit is ACS less than or equal [...] A premounted 4.00 x 38 mm [place] (RADHA) was deployed ? with a maximum [...] dose administered prior to arrival in the cath lab nurse. ?Recommended anti-platelet/anti-thrombotic regimen: ?Continue aspirin 81 mg daily for 12 months then stop. ?Continue clopidogrel 75 mg daily for indefinitely. ?These recommendations are made at the time of the intervention. Patient ?and provider preferences or a changing clinical situation may require ?modification of this regimen. Consult [facility] Interventional Cardiology for [...] Procedure Note Rosa Dewey MD - 12/05/2023 [facility] Cardiac Catheterization/Intervention Report Patient Name: Adin Santos Procedure Date: 10/30/2023 A #: [id number] Primary Physician: Rosa Dewey I Case #: [id number] File Name: [id number] Catheterization Order Number: [id number] [facility] FinalReport [place], [place] Patient Name: Adin Santos ID#:[id number] :1940 Procedure Date: October 30, 2023 Case [...] was designated as ASA Class III. The [facility] clinical frailtyscale is 5: Mildly Frail. Diagnostic Tests: Electrocardiography: EKG was assessed by ECG. EKG was Abnormal. EKG showed STDeviation >= 0.5 mm, other abnormality and dynamic EKG changes. Medications Prior to Procedure: Aspirin, Angiotensin II Receptor Rodrick, Beta Rodrick andStatin. Indications for Diagnostic Cath: The priority of the diagnostic procedure was Emergent. Theindication for the cath lab nurse visit is ACS less than or equal [...] The priority for the procedure was Emergent.The [facility] indication for the procedure was STEMI-Immediate [...] A premounted 4.00 x 38 mm [place] (RADHA) wasdeployed with a maximum inflation pressure [...] dose administered prior to arrival in the cath lab nurse. Recommended anti-platelet/anti-thrombotic regimen: Continue aspirin 81 mg daily for 12 months then stop. Continue clopidogrel 75 mg daily for indefinitely. These recommendations are made at the time of the intervention.Patient and provider preferences or a changing clinical situation mayrequire modification of this regimen. Consult [facility] Interventional Cardiologyfor questions. [...] * (ABNORMAL) Troponin (10/31/2023 4:21 AM EDT) [facility] Troponin-T, High Sensitivity 457(H) <=14 ng/L [facility] Comment: [...] value can be found in the [facility] Laboratory Test Catalog Troponin - [facility] Laboratory Test Catalog Reference: Fourth Stow Definition of Myocardial Infarction. Journal of the [employer] 2018;72:3348-7960 Blood 10/31/2023 4:21 AM EDT 10/31/2023 4:30 AM EDT Narrative Resulting Agency Comment Spec In Lab Rosa Cornejo MD CHEMISTRY ORDERABLE S Performing Organization Address City/State/[facility] Co de Phone Number [facility] [place] [address] * (ABNORMAL) Differential, Automated (10/31/2023 3:05 AM EDT) Neutrophil % 71.7 % [facility] Neutrophil Absolute 8.21(H) 1.70 - 6.10 x10(3)/mc L [facility] Lymph % 16.9 % [facility] Lymphocytes Abs 1.9 0.9 - 3.2 x10(3)/mc L [facility] Monocyte % 9.4 % [facility] Monocyte Abs 1.1(H) 0.3 - 0.9 x10(3)/mc L [facility] Eos % 1.3 % [facility] Eosinophils Abs 0.2 0.0 - 0.4 x10(3)/mc L [facility] Basophil % 0.4 % [facility] Baso Absolute 0.0 0.0 - 0.1 x10(3)/mc L [facility] Immature Gran % 0.30 % [facility] Comment: Immature granulocytes(IG's)percentage and absolute count will include metamyelocytes, myelocytes, and promyelocytes. Blood smears from CBCs yielding IG's will be scanned manually for concordance. If this scan disagrees with the automated IG or if promyelocytes are noted, a manual differential will be performed. Immature Gran Absolute 0.04 0.00 - 0.04 x10(3)/ L [facility] Blood 10/31/2023 3:05 AM EDT 10/31/2023 3:13 AM EDT Narrative Resulting Agency Comment Spec In Lab Qamar Gallardo MD HEMATOLOGY ORDERABLE S [facility] [place] [address] * (ABNORMAL) Hemogram (10/31/2023 3:05 AM EDT) White Blood Cell 11.5(H) 4.0 - 9.5 x10(3)/ L [facility] Red Blood Cell 3.75(L) 4.00 - 5.21 x10(6)/mc L [facility] Hemoglobin 12.6 11.7 - 15.5 g/dL [facility] Hematocrit 37.1 35.7 - 45.8 % [facility] Mean Cell Volume 98.9(H) 82.6 - 94.4 fL [facility] Mean Cell Hemoglobin 33.6(H) 27.1 - 32.0 pg [facility] Mean Cell Hemoglobin Concentration 34.0 31.7 - 35.0 g/dL [facility] Platelet 206 145 - 357 x10(3)/mc L [facility] RDW Standard Deviation 53.4(H) 37.0 - 46.0 fL [facility] RDW coefficient of variation 14.6(H) 11.5 - 14.1 % [facility] Mean Platelet Volume 11.1 7.6 - 12.9 fL [facility] NRBC% auto 0.0 % [facility] NRBC Absolute 0.000 0.000 - 0.000 x10(3)/mc L [facility] Blood 10/31/2023 3:05 AM EDT 10/31/2023 3:13 AM EDT Narrative Resulting Agency Comment Spec In Lab Qamar Gallardo MD HEMATOLOGY ORDERABLE S Performing Organization Address [facility] de Phone Number [facility] [place] [address] * (ABNORMAL) APTT (10/31/2023 3:05 AM EDT) [...] MD HEMATOLOGY ORDERABL ES Performing Organization Address [facility] de Phone Number [facility] [place] [address] * (ABNORMAL) Prothrombin Time (10/31/2023 3:05 AM [...] Lab Rosa Cornejo MD HEMATOLOGY ORDERABL ES [facility] [place] [address] * (ABNORMAL) Differential, Automated (10/31/2023 1:37 AM EDT) Neutrophil % 71.1 % [facility] Neutrophil Absolute 7.53(H) 1.70 - 6.10 x10(3)/mc L [facility] Lymph % 18.0 % [facility] Lymphocytes Abs 1.9 0.9 - 3.2 x10(3)/ L [facility] Monocyte % 8.7 % [facility] Monocyte Abs 0.9 0.3 - 0.9 x10(3)/mc L [facility] Eos % 1.6 % [facility] Eosinophils Abs 0.2 0.0 - 0.4 x10(3)/mc L [facility] Basophil % 0.4 % [facility] Baso Absolute 0.0 0.0 - 0.1 x10(3)/mc L [facility] Immature Gran % 0.20 % [facility] Comment: Immature granulocytes(IG's)percentage and absolute count will include metamyelocytes, myelocytes, and promyelocytes. Blood smears from CBCs yielding IG's will be scanned manually for concordance. If this scan disagrees with the automated IG or if promyelocytes are noted, a manual differential will be performed. Immature Gran Absolute 0.02 0.00 - 0.04 x10(3)/mc L [facility] Blood 10/31/2023 1:37 AM EDT 10/31/2023 1:46 AM EDT Narrative Resulting Agency Comment Spec In Lab Qamar Gallardo MD HEMATOLOGY ORDERABLE S [facility] [place] [address] * (ABNORMAL) Hemogram (10/31/2023 1:37 AM EDT) White Blood Cell 10.6(H) 4.0 - 9.5 x10(3)/mc L [facility] Red Blood Cell 3.78(L) 4.00 - 5.21 x10(6)/mc L [facility] Hemoglobin 13.0 11.7 - 15.5 g/dL [facility] Hematocrit 37.9 35.7 - 45.8 % [facility] Mean Cell Volume 100.3(H) 82.6 - 94.4 fL [facility] Mean Cell Hemoglobin 34.4(H) 27.1 - 32.0 pg [facility] Mean Cell Hemoglobin Concentration 34.3 31.7 - 35.0 g/dL [facility] Platelet 204 145 - 357 x10(3)/mc L [facility] RDW Standard Deviation 54.3(H) 37.0 - 46.0 fL [facility] RDW coefficient of variation 14.6(H) 11.5 - 14.1 % [facility] Mean Platelet Volume 11.1 7.6 - 12.9 fL [facility] NRBC% auto 0.0 % [facility] NRBC Absolute 0.000 0.000 - 0.000 x10(3)/mc L [facility] Blood 10/31/2023 1:37 AM EDT 10/31/2023 1:46 AM EDT Narrative Resulting Agency Comment Spec In Lab Qamar Gallardo MD HEMATOLOGY ORDERABLE S [facility] [place] [address] * Phosphorus (10/31/2023 1:37 AM EDT) Phosphorus 3.2 2.5 - 4.5 mg/dL [facility] Blood 10/31/2023 1:37 AM EDT 10/31/2023 1:46 AM EDT Narrative Resulting Agency Comment Spec In Lab Rosa Cornejo MD CHEMISTRY ORDERABLE S Performing Organization Address City/[facility]/ZIP Co de Phone Number [facility] [place] [address] * Magnesium (10/31/2023 1:37 AM EDT) Magnesium 0.83 0.69 - 1.07 mmol/L [facility] Blood 10/31/2023 1:37 AM EDT 10/31/2023 1:46 AM EDT Narrative Resulting Agency Comment Spec In Lab Rosa Cornejo MD CHEMISTRY ORDERABLE S Performing Organization Address City/[facility]/ZIP Co de Phone Number [facility] [place] [address] * Basic Metabolic Panel (non-fasting) (10/31/2023 1:37 AM EDT) Glucose 114 65 - 199 mg/dL [facility] Comment:Diabetes: >=200 mg/d L plus symptoms Blood Urea Nitrogen 13 8 - 18 mg/dL [facility] Creatinine 0.81 0.70 - 1.20 mg/dL [facility] Sodium 140 135 - 145 mmol/L [facility] Potassium 3.9 3.5 - 5.0 mmol/L [facility] Comment: Please note: ??Patients with WBC >100,000 may have falsely elevated Potassium levels. ??For accurate Potassium quantification in these patients send serum separator tube (gold top) for subsequent determinations. ??Contact the Clinical Chemistry Laboratory if there are any questions. Chloride 107 98 - 107 mmol/L [facility] Carbon Dioxide 25 22 - 31 mmol/L [facility] Anion Gap 8 5 - 15 mmol/L [facility] Calcium 8.6 8.5 - 10.5 mg/dL [facility] Est Glomerular Filtration Rate 72 >=60 mL/min/1. 73 m?? [facility] [...] CHEMISTRY ORDERABLE S [facility] [place] [address] * (ABNORMAL) Troponin (10/31/2023 1:37 AM EDT) Troponin-T, High Sensitivity 329(H) <=14 ng/L [facility] Comment: [...] value can be found in the [facility] Laboratory Test Catalog Troponin - [facility] Laboratory Test Catalog Reference: Fourth Stow Definition of Myocardial Infarction. Journal of the [employer] 2018;72:2807-2684 Blood 10/31/2023 1:37 AM EDT 10/31/2023 1:46 AM EDT Narrative Resulting Agency Comment Spec In Lab Rosa Cornejo MD CHEMISTRY ORDERABLE S Performing Organization Address City/[facility]/ZIP [place] [address] * EKG 12 Lead (10/31/2023 1:20 AM EDT) Ventricular rate 52 BPM MUSE SYSTEM Atrial Rate 52 BPM MUSE SYSTEM P-R Interval 224 ms MUSE SYSTEM QRS Duration 108 ms MUSE SYSTEM Q-T Interval 544 ms MUSE SYSTEM QTC Calculated (Bezet) 505 ms MUSE SYSTEM Calculated P [place] 90 degrees MUSE SYSTEM Calculated R [place] -57 degrees MUSE SYSTEM Calculated T [place] -63 degrees MUSE SYSTEM INTERPRETATION Sinus bradycardia with 1st degree A-V block Pulmonary disease pattern Left anterior fascicular block Moderate voltage criteria for LVH, may be normal variant ( R in aVL , Goode product ) T wave abnormality, consider inferior [...] (Bezet) 497 ms MUSE SYSTEM Calculated P [place] 75 degrees MUSE SYSTEM Calculated R [place] -53 degrees MUSE SYSTEM Calculated T [place] -57 degrees MUSE SYSTEM INTERPRETATION Sinus bradycardia with 1st degree A-V block Left anterior fascicular block Moderate voltage criteria for LVH, may be normal variant ( R in aVL , Goode product ) T wave abnormality, consider inferior [...] View (10/30/2023 10:10 PM EDT) WORKSTATION ID [id number] DH RAD Anatomical Region Laterality Modality Chest [...] and low lung volumes. Findings similar to chief drafter radiograph from CT 10/30/2023. Thank you for letting us participate in the care of this patient. ??If you are a health care provider and have any questions regarding this report, please contact the number below. ??For patients who have questions please contact the health life care planner that requested your imaging first. ? Electronically signed by: Wilson Mccartney MD, [facility] ([phone]), at 10/30/2023 10:32 PM Narrative 10/30/2023 10:32 [...] and low lung volumes. Findings similar to chief drafter radiograph from CT 10/30/2023. Thank you for letting us participate in the care of this patient. If youare a health care provider and have any questions regarding this report,please contact the number below. For patients who have questions please contactthe health life care planner that requested your imaging first. Rosa Cornejo MD IMG DX ORDERABLES * Green Tube HOLD (10/30/2023 10:05 PM EDT) [facility] Green Hold Sample in lab. [facility] Blood Venous Draw / Unknown 10/30/2023 10:05 PM EDT 10/30/2023 10:13 PM EDT Qamar Gallardo MD CHEMISTRY ORDERABLES [facility] [place] [address] * (ABNORMAL) Differential, Automated (10/30/2023 10:05 PM EDT) Pathologist [facility] Neutrophil % 76.6 % [facility] Neutrophil Absolute 6.94(H) 1.70 - 6.10 x10(3)/mc L [facility] Lymph % 15.4 % [facility] Lymphocytes Abs 1.4 0.9 - 3.2 x10(3)/mc L [facility] Monocyte % 6.1 % [facility] Monocyte Abs 0.6 0.3 - 0.9 x10(3)/mc L [facility] Eos % 1.1 % [facility] Eosinophils Abs 0.1 0.0 - 0.4 x10(3)/mc L [facility] Basophil % 0.6 % [facility] Baso Absolute 0.0 0.0 - 0.1 x10(3)/mc L [facility] Immature Gran % 0.20 % [facility] Comment: Immature granulocytes(IG's)percentage and absolute count will include metamyelocytes, myelocytes, and promyelocytes. Blood smears from CBCs yielding IG's will be scanned manually for concordance. If this scan disagrees with the automated IG or if promyelocytes are noted, a manual differential will be performed. Immature Gran Absolute 0.02 0.00 - 0.04 x10(3)/ L [facility] Blood 10/30/2023 10:0 5 PM EDT 10/30/2023 10:12 PM EDT Narrative Resulting Agency Comment Spec In Lab Qamar Gallardo MD HEMATOLOGY ORDERABLE S Performing Organization Address City/State/[facility] Co de Phone Number [facility] [place] [address] * (ABNORMAL) Hemogram (10/30/2023 10:05 PM EDT) White Blood Cell 9.0 4.0 - 9.5 x10(3)/ L [facility] Red Blood Cell 3.96(L) 4.00 - 5.21 x10(6)/mc L [facility] Hemoglobin 13.3 11.7 - 15.5 g/dL [facility] Hematocrit 39.1 35.7 - 45.8 % [facility] Mean Cell Volume 98.7(H) 82.6 - 94.4 fL [facility] Mean Cell Hemoglobin 33.6(H) 27.1 - 32.0 pg [facility] Mean Cell Hemoglobin Concentration 34.0 31.7 - 35.0 g/dL [facility] Platelet 211 145 - 357 x10(3)/mc L [facility] RDW Standard Deviation 53.6(H) 37.0 - 46.0 fL [facility] RDW coefficient of variation 14.6(H) 11.5 - 14.1 % [facility] Mean Platelet Volume 11.1 7.6 - 12.9 fL [facility] NRBC% auto 0.0 % [facility] NRBC Absolute 0.000 0.000 - 0.000 x10(3)/mc L [facility] Blood 10/30/2023 10:0 5 PM EDT 10/30/2023 10:12 PM EDT Narrative Resulting Agency Comment Spec In Lab Qamar Gallardo MD HEMATOLOGY ORDERABLE S Performing Organization Address City/[facility]/ZIP Co de Phone Number [facility] [place] [address] * Hemoglobin A1c (10/30/2023 10:05 PM EDT) [...] CHEMISTRY ORDERABLE S [facility] [place] [address] * Lipid Panel (Reflex Direct LDL) (10/30/2023 10:05 PM EDT) [facility] Cholesterol, Total 218 mg/dL Dorene [facility] Comment: Desirable: ? <200 mg/dL Borderline High: 200-239 mg/dL Higher: ?>ld=746 mg/dL Triglyceride 46 mg/dL [facility] Comment: Normal: ?<150 mg/dL Borderline High: 150-199 mg/dL High: ?200-499 mg/dL Very High: ? >uu=978 mg/dL HDL Cholesterol 64 mg/dL [facility] Comment: Females: High Risk: <50 mg/dL Males: High Risk: <40 mg/dL LDL Cholesterol 145 mg/dL [facility] Comment: Desirable: ? <100 mg/dL Above Desirable: 100-129 mg/dL Borderline High: 130-159 mg/dL High: ?160-189 mg/dL Very High: ? >ah=561 mg/dL Lipid Interpretation See Note [facility] [...] individuals with atherosclerotic cardiovascular disease (ASCVD)or LDL >ee=891 mg/dL, use a high-intensity statin (40-80 mg [...] MD CHEMISTRY ORDERABLE S Performing Organization Address [facility] Co de Phone Number [facility] [place] [address] * TSH Issue (10/30/2023 10:05 PM EDT) Thyroid Stimulating Hormone 3.35 0.27 - 4.20 mcIU/mL [facility] Comment: Reference Interval (mcIU/mL): Females: ??First Trimester: 0.23-3.88 ??Second Trimester: 0.22-3.90 ??Third Trimester: 0.44-4.66 Blood 10/30/2023 10:0 5 PM EDT 10/30/2023 10:12 PM EDT Narrative Resulting Agency Comment Spec In Lab Rosa Cornejo MD CHEMISTRY ORDERABLE S Performing Organization Address [facility]/ZIP Co de Phone Number [facility] [place] [address] * pro-Brain Natriuretic Peptide (10/30/2023 10:05 PM EDT) NT-proBNP 375 <=449 pg/mL [facility] Blood 10/30/2023 10:0 5 PM EDT 10/30/2023 10:12 PM EDT Narrative Resulting Agency Comment Spec In Lab Rosa oCrnejo MD CHEMISTRY ORDERABLE S [facility] [place] [address] * (ABNORMAL) Comprehensive metabolic panel (non-fasting) (10/30/2023 10:05 PM EDT) Pathologist [facility] Glucose 121 65 - 199 mg/dL [facility] [...] MD CHEMISTRY ORDERABLE S Performing Organization Address City/[facility]/ZIP Co de Phone Number [facility] [place] [address] * Phosphorus (10/30/2023 10:05 PM EDT) Phosphorus 3.3 2.5 - 4.5 mg/dL [facility] Blood 10/30/2023 10:0 5 PM EDT 10/30/2023 10:12 PM EDT Narrative Resulting Agency Comment Spec In Lab Rosa Cornejo MD CHEMISTRY ORDERABLE S [facility] [place] [address] * Magnesium (10/30/2023 10:05 PM EDT) Magnesium 0.86 0.69 - 1.07 mmol/L [facility] Blood 10/30/2023 10:0 5 PM EDT 10/30/2023 10:12 PM EDT Narrative Resulting Agency Comment Spec In Lab Rosa Cornejo MD CHEMISTRY ORDERABLE S Performing Organization Address City/[facility]/ZIP Co de Phone Number [facility] [place] [address] * (ABNORMAL) Troponin (10/30/2023 10:05 PM EDT) Troponin-T, High Sensitivity 214(H) <=14 ng/L [facility] Comment: [...] value can be found in the [facility] Laboratory Test Catalog Troponin - [facility] Laboratory Test Catalog Reference: Fourth Stow Definition of Myocardial Infarction. Journal of the [place] [employer] 2018;72:3227-4532 Blood 10/30/2023 10:0 5 PM EDT 10/30/2023 10:12 PM EDT Narrative Resulting Agency Comment Spec In Lab Rosa Cornejo MD CHEMISTRY ORDERABLE S Performing Organization Address City/[facility]/ZIP Co de Phone Number [facility] [place] [address] * EKG 12 Lead (10/30/2023 8:21 PM EDT) Ventricular rate 49 BPM MUSE SYSTEM Atrial Rate 49 BPM MUSE SYSTEM P-R Interval 230 ms MUSE SYSTEM QRS Duration 96 ms MUSE SYSTEM Q-T Interval 526 ms MUSE SYSTEM QTC Calculated (Bezet) 475 ms MUSE SYSTEM Calculated P [place] 98 degrees MUSE SYSTEM Calculated R [place] -48 degrees MUSE SYSTEM Calculated T [place] -51 degrees MUSE SYSTEM INTERPRETATION Sinus bradycardia with 1st degree A-V block Incomplete right bundle branch block Left anterior fascicular block Moderate voltage criteria for LVH, may be normal variant ( R in aVL , Goode product ) T wave abnormality, consider inferior [...] - Reason: Transfer to a Procedural area)1548 ([facility] Unhold - Provider: Admin Adt) fentaNYL (pf) [...] - Reason: Transfer to a Procedural area)1548 ([facility] Unhold - Provider: Admin Adt) midazolam (pf) [...] documented as of this encounter Care Teams Biological Inspector Relationship Specialty Start Date End Date Rosie Mathews MD [address] [place] [id number] PCP - General Family Medicine 11/25/17 11/23/23 documented as of this encounter
--- OUTSIDE RECORDS SUMMARY | 2024-02-06 10:56 | XMS_ITS | Encounter Summary ---
Author Organization [facility] Address [address] [place] [address] Care Team Providers Care Asset Protection Specialist Name Role Phone Kirsten Bateman MD Primary Care Provider [phone] Encounter Details Date Type Department Care Team (Late st Contact Info) Description 01/14/2010 Abstract Used for ABSTRACTING Data [phone] Kirsten Bateman MD [address] [place] [address] Social History Tobacco Use Types [...] OIL/COCONUT OIL (FATTY ACID BASE MISC) [place] [facility] [place]Non-[place]; Combo Route) route. EPA CYANOCOBALAMIN (VITAMIN B-12 ORAL) Take by mouth. ASCORBIC ACID (VITAMIN C ORAL) Take by mouth. VITAMIN E ACETATE (VITAMIN E ORAL) Take by mouth. ASPIRIN ORAL Take by mouth. AMITRIPTYLINE HCL (AMITRIPTYLINE ORAL) Take by mouth. ATENOLOL ORAL Take by mouth. SIMVASTATIN ORAL Take by mouth. added in this encounter Care Teams Asset Protection Specialist Relationship Specialty Start Date End Date Kirsten Bateman MD [address] [place] [phone] PCP - General 01/13/10 documented as of this encounter
--- OUTSIDE RECORDS SUMMARY | 2024-02-06 10:56 | XMS_ITS | Encounter Summary ---
Author Organization [facility] Address [facility] [place] [address] Care Team Providers Care Bolt Sorter Name Role Phone Rosie Mathews MD Primary Care Provider [phone] Reason for Visit * Reason Comments Skin Lesion * Consultation (Routine) - Closed Specialty Diagnoses / Procedures Referred By John hunt Referred To Contact Dermatology Diagnoses facial skin lesion Procedures pt would like to be seen PRADEEP Rosie Mathews MD [address] [place] [address] [facility] Dermatology [address] [place] [address] Referral ID Status Reason Start Date Expiration Date V isits Requested Visits Authorized [id number] Closed Consult, Test & Treat [facility] 10/25/2017 10/25/2018 1 1 Encounter Details Date Type Department Care Team (Late st Contact Info) Description 11/25/2017 4:30 PM EDT Office Visit Dermatology at [facility] [address] [place] [address] Call, Radu Go MD [facility] DR [address]ERLY[place] [address] Seborrheic keratosis; Fibrous papule of [...] by Radu Tom MD Resident in Dermatology [facility] Patient seen in conjunction with staff traffic or system dispatcher: Terri Hale MD Section of Dermatology [facility] * Terri Hale MD - 11/25/2017 [...] AM EDT Office Visit Cardiology at [address] [phone] Izaiah Meyer MD [facility] [place] [address] documented as of this encounter Visit Diagnoses Diagnosis Seborrheic keratosis Other seborrheic keratosis Fibrous papule of nose Benign neoplasm of skin of other and unspecified parts of face Skin tags, multiple acquired documented in this encounter Care Teams Bolt Sorter Relationship Specialty Start Date End Date Rosie Mathews MD [address] [place] [address] PCP - General Family Medicine 11/25/17 11/23/23 documented as of this encounter
--- OUTSIDE RECORDS SUMMARY | 2024-02-06 10:56 | XMS_ITS | Encounter Summary ---
Author Organization [facility] Address [facility] [place] [address] Care Team Providers Care Hospice Aide Name Role Phone Rosie Mathews MD Primary Care Provider [phone] Encounter Details Date Type Department Care Team (Late st Contact Info) Description 10/30/2023 [place] [address] Jose Lee MD [facility] [place] [address] Social History Tobacco Use Types Packs/Day Years Used Date Smoking Tobacco: Former Smokeless Tobacco: Never Alcohol Use Standard Drinks/Week Comments Not Currently 0 (1 standard drink = 0.6 oz pur e alcohol) [facility] Utilities Answer Date Recorded In the past 12 months has th e [email or web address], gas, oil, or water [employer] threatened to shut off services in your [...] AM EDT Office Visit Cardiology at [address] [address] Izaiah Meyer MD [facility] [place] [address] documented as of this encounter Visit Diagnoses Not on filedocumented in this encounter Additional Health Concerns Infection Onset Date Last Indicated Resolved Time Rule Out Respiratory 11/02/2023 11/02/2023 024 12:22 PM EDT Rule Out COVID-19 11/02/2023 11/02/2023 11/02/2023 12:22 PM EDT documented as of this encounter Care Teams Hospice Aide Relationship Specialty Start Date End Date Rosie Mathews MD [address] [place] [address] PCP - General Family Medicine 11/25/17 11/23/23 documented as of this encounter
--- OUTSIDE RECORDS SUMMARY | 2024-02-06 10:56 | XMS_ITS | Encounter Summary ---
Author Organization [facility] [place] [address] Care Team Providers Care Sap Abap Programmer Name Role Phone Rosie Mathews MD Primary Care Provider [phone] Reason for Visit * Auth/Cert (Routine) Specialty Diagnoses / Procedures Referred By Contac t Referred To Contact Diagnoses Unstable angina Chest pain NSTEMI Procedures CARDIAC CATHETERIZATION Rosa Dewey MD [facility] [place] [address] [facility] Referral ID Status Reason Start Date Expiration Date Visits Re quested Visits Authorized [id number] 1 1 Encounter Details Date Type Department Care Team (Late st Contact Info) Description 10/30/2023 4:25 PM EDT - 10/30/2023 5:27 PM [place] [address] Rosa Dewey MD [facility] [address] [place] [place], [place] [id number] CARDIAC CATHETERIZATION Social History Tobacco Use Types Packs/Day Years Used Date Smoking Tobacco: Former Smokeless Tobacco: Never Alcohol Use Standard Drinks/Week Comments Not Currently 0 (1 standard drink = 0.6 oz pur e alcohol) [facility] Inpatient Questions Answer Date Recorded Does Anyone [...] for hypertension and hyperlipidemia who presented to [facility] as a transfer from [facility] as a possible STEMI alert with acute onset chest pain. The patient reports that her symptoms initially began on Tuesday when she was walking to [facility] and experienced bilateral arm heaviness while walking with no other symptoms. Then, this afternoon shereports developing bilateral achy shoulder pain and nonradiating substernal left-sided chest pressure that was 7/10 in severity after coming home from [facility]. The patient denies any associated fevers, chills, diaphoresis, lightheadedness/dizziness, syncope/presyncope, dyspnea (either at rest or on exertion), palpitations, orthopnea, or PND. The patient subsequently presented to [facility] as a walk-in for further evaluation. [...] on repeat, her JAMIE resolved. Cardiology at [facility] was consulted for transfer; the patient was loaded with aspirin 324 mg and ticagrelor 180 mg, started on a heparin drip, and given nitroglycerin with improvement in chest pain. Upon arrival to [facility], the patient was taken directly to the Presser Machine. Two lesions were discovered: one in the prox RCA (felt to almost be a COKE STILL CLEANER but they were able to wire, balloon, [...] dose administered prior to arrival in the labor relations worker. Recommended anti-platelet/anti-thrombotic regimen: Continue aspirin 81 mg [...] and low lung volumes. Findings similar to senior analyst programmer radiograph from CT 10/30/2023. Pending Studies and [...] 10:40 AM Izaiah Meyer MD Cardiology at [facility] Arrive at: [facility] [address] [phone] Future Orders Complete By Expires Referral to Cardiac Rehab [[id number] Custom] As directed Process Instructions: If no progress note charted, please enter Clinical details in comments. Scheduling Instructions: Questions: My question or request is: STEMI. Cardiac rehab at [facility]. Referral to Home Health [REF34 Custom] As directed Process Instructions: If no progress note charted, please enter Clinical details in comments. Scheduling Instructions: Comments: Please evaluate Adin Santos for admission to Home Health. [address] [place] [address] [place] [phone] (home) Date of : 1940 Inpatient DOCUMENTATION FOR VNA SERVICES (INCLUDING THOSE PATIENTS WITH MEDICARE COVERAGE REQUIRING HOME VNA SERVICES AND/OR HOSPICE SERVICES) PATIENT'S LOCATION: Adin Santos [address] [facility] [id number] (home) Cell: Telephone Information: Machine Pecan Picker's Name: self In discussion with the attending physician, it is certified that this patient is under their care and that they, or a Nurse Practitioner, Clinical Nurse specialist or Physician Cinder Crane Operator who is working directly with them, had [...] regarding health issues HOME HEALTH CARE AGENCY: [facility] [address] [place] [id number] START OF CARE: within 24-48 hours of [...] Rosie Mathews MD [address] / [facility] [address] . All A agencies which cover the [...] Time PCP: Rosie Mathews MD / Dr. Masodo Pierson [address] [place] [address] 11/09/23 1:55 PM arrival for 2:10 PM appointment Ironworker Apprentice Shop: Izaiah Meyer MD [address] [place] [address] , 11/24/2023 10:40 AM Your Inpatient Medical Team at [facility] Name(s) of your inpatient provider(s): Attending physician: Rosa Hugo MD Resident physicians: Emile Robles MD; Elmer Tamez MD If you have non-emergent questions, prior to your follow-up visit call: Tuesday-Tuesday between the hours of 8AM-5PM please call the Cardiology Clinic [phone] to speak with a nurse. All other hours please call the Hospital Machine I Cutter [phone] and ask to speak to the policy manager on-call. Your Primary Care Provider Rosie Mathews MD [phone] For questions regarding this document or issues relating to this hospitalization on the Medical Service, please contact your inpatient physician through the [facility] Machine I Cutter . Issues afterhours and on weekends will be handled by the Ironworker Apprentice Shop staff on-call. Associated attestation - Rosa Hugo [...] MD / Dr. Masood Pierson [address] [place] [address] 11/09/23 1:55 PM arrival for 2:10 PM appointment Ironworker Apprentice Shop: Izaiah Meyer MD [address] [place] [address] , 11/24/2023 10:40 AM Your Inpatient Medical Team at [facility] Name(s) of your inpatient provider(s): Attending physician: Rosa Hugo MD Resident physicians: Emile Robles MD; Elmer Tamez MD If you have non-emergent questions, prior to your follow-up visit call: Tuesday-Tuesday between the hours of 8AM-5PM please call the Cardiology Clinic [phone] to speak with a nurse. All other hours please call the Hospital Machine I Cutter [phone] and ask to speak to the policy manager on-call. Your Primary Care Provider Rosie Mathews MD [phone] documented in this encounter Medications at Time [...] for hypertension and hyperlipidemia who presented to [facility] as a transfer from [facility] as a possible STEMI alert with [...] for hypertension and hyperlipidemia who presented to [facility] as a transfer from [facility] as a possible STEMI alert with [...] Resident on Cardiology Service Cardiology S1 (Pager [phone]) Note written in conjunction with [facility] Medical Student, MS3 Associated attestation - Rosa [...] Nirmala Webb - 11/01/2023 11:25 AM EDT Statistician Theoretical Encounter Note Patient Name: Adin Santos : [id number] MR#: [id number] Admit Date: 10/30/2023 5:11 PM Hospital Day 2 days Narrative: Self initiated visit to patient for Spiritual support in a regular unit rounds. Assessment: Patient is in the bathroom at the time of this visit. Not a good time for Computer Methods Analyst visit. Intervention and Outcome: An attempted visit [...] for hypertension and hyperlipidemia who presented to [facility] as a transfer from [facility] as a possible STEMI alert with [...] and low lung volumes. Findings similar to senior analyst programmer radiograph from CT 10/30/2023. Scheduled Medications: [MAR [...] for hypertension and hyperlipidemia who presented to [facility] as a transfer from [facility] as a possible STEMI alert with [...] Resident on Cardiology Service Cardiology S1 (Pager [phone]) Note written in conjunction with [facility] Medical Student, MS3 Associated attestation - Rosa [...] for hypertension and hyperlipidemia who presented to [facility] as a transfer from [facility] as a possible STEMI alert with acute onset chest pain. Active Problems: Active Hospital Problems Diagnosis Unstable angina Resolved Hospital Problems No resolved problems to display. 24 hr events: - Cath'd yesterday with lesion in the proximal RCA (initially thought it was COKE STILL CLEANER but they were ableto wire, balloon and [...] and low lung volumes. Findings similar to senior analyst programmer radiograph from CT 10/30/2023. TTE (10/30): Interpretation [...] for hypertension and hyperlipidemia who presented to [facility] as a transfer from [facility] as a possible STEMI alert with [...] Resident on Cardiology Service Cardiology S1 (Pager [phone]) Note written in conjunction with [facility] Medical Student, MS3 Associated attestation - Rosa [...] PCP: Rosie Mathews MD PCP phone number: [phone] Date of Admission: 10/30/2023 ( Hospital Day 0 days ) Attending:Rosa Cornejo MD ID: Adin Santos is a 83 y.o. female PMH significant for hypertension and hyperlipidemia who presented to [facility] as a transfer from [facility] as a possible STEMI alert with acute onset chest pain. The patient reports that her symptoms initially began on Tuesday when she was walking to [facility] and experienced bilateral arm heaviness while walking with no other symptoms. Then, this afternoon shereports developing bilateral achy shoulder pain and nonradiating substernal left-sided chest pressure that was 7/10 in severity after coming home from [facility]. The patient denies any associated fevers, chills, diaphoresis, lightheadedness/dizziness, syncope/presyncope, dyspnea (either at rest or on exertion), palpitations, orthopnea, or PND. The patient subsequently presented to [facility] as a walk-in for further evaluation. [...] on repeat, her JAMIE resolved. Cardiology at [facility] was consulted for transfer; the patient was loaded with aspirin 324 mg and ticagrelor 180 mg, started on a heparin drip, and given nitroglycerin with improvement in chest pain. Upon arrival to [facility], the patient was taken directly to the Presser Machine. 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 Findings similar to senior analyst programmer radiograph from CT 10/30/2023. Assessment & Plan: Adin Santos is a 83 y.o. female PMH significant for hypertension and hyperlipidemia who presented to [facility] as a transfer from [facility] as a possible STEMI alert with [...] with HTN HLD transferred with chest from [facility]. BP 217/68, HR [address] [...] information for follow-up [facility], [place] [address] TANESHA BOYCE confirmed with Brittany CARVAJAL that they will see the patient within 24-48 hours of discharge for start of care. Transportation: family or friend will provide Wheelchair van/Ambulance? No Functional status prior to admission: Assistive Equipment Home Environment: Others in the home: alone. Current Living Arrangements: home/apartment/condo. Accessibility Concerns:1st floor apartment in [facility] community; handicapped accessible. Current Functional Ability: Assistive [...] in the room. Electrolytes replaced, see MAR. home performance laborer sites remained C/D/I with baseline ecchymosis unchanged. Pt complained of back pain, lidocaine patch given. Right IV infiltrated during infusion, patient is marked with sharpie, IV removed. See flowsheet for I+O's and safety rounding. Patient is able to make needs known and call capps within reach. PLAN MOVING FORWARD: Monitor Tele, control BP, monitor labor relations worker sites, D/C Planning INDIVIDUALIZED FALL PREVENTION INTERVENTIONS: [...] in an outpatient cardiac rehabilitation program at [facility] was discussed. Patient agrees to a referral [...] and above on RA. PT went to labor relations worker today. Left fem site oozed throughout shift, [...] MOVING FORWARD: Monitor Tele, control BP, monitor labor relations worker sites, D/C Planning INDIVIDUALIZED FALL PREVENTION INTERVENTIONS: [...] Admitted From: Transfer from another hospital Location: [facility] Reason for Hospitalization: chest pain Covid Vaccination Status: 1st, 2nd & booster Past medical History: No past medical history on file. Hospitalizations Within the Past 30 Days: no previous admission in last 30 days Current Decision-Making Capacity: Self If AD's have not been completed the following surrogate would be surrogate decision maker per [place] surrogate decision making law. (Only good for 180 days) Any patient receiving care in [place] must abide by [place] law. The hierarchy for surrogate decision making [...] (i) The agent with financial power of corporate associate attorney or a conservator appointed in accordance [...] Arrangements: home/apartment/condo. Accessibility Concerns:1st floor apartment in [facility] community; handicapped accessible. In the last 12 [...] has the electric, gas, oil, or water [employer] threatened to shut off services in your [...] toilet seat Home Address confirmed as: [address] [facility] [address] Social & Family Supports: All names listed below confirmed with patient as current and correct Extended Emergency Contact Information Primary Emergency Contact: Iris Downing Address: [address] [place], [place] [address] [place] [address] Mobile Relation: Child Secondary Emergency Contact: Karen More Address: [address] [facility] Mobile Relation: Child Current Care Provided by: self Provides Primary Care For: no one Caregiver if needed: child(emmanuel), adult Quality of Family relationships: involved, supportive Community Resources being provided currently: other (see comments) (receives [facility] services at home (1xweekly)) Behavioral Health History: [...] Insurance: N/A Prescription Coverage: Yes Preferred Pharmacy: [facility] [place], [place] - [address] [place] [address] [place] [address] Status: Patient is a : No Primary Care Provider listed: Masood Pierson MD [phone] Patient/Caregiver Goals of Treatment: home when MR Potential Needs for Transition of Care: home health care Agency Referrals: Not Applicable I have met with the patient to: discuss discharge planning needs. provide the [facility], Office of Care Management letter from the Independent Freight Agent pertaining to rehab referrals. provide a letter describing our affiliations within the [facility] and educate about their right to choose where referrals are sent. provide a list of Home Health Agencies / Durable Medical Equipment vendors which serve their preferred geographic area. provided patient with CMS Star Quality Rating handout. They have requested referrals to: [facility] [address] [place] [address] Note routed to a Prefinish Operator who will communicate referrals to facilities and [...] results. PO hydralazine added for BP control. home performance laborer sites remain C/D/I, ecchymosis unchanged th roughout shift. See flowsheet for I+O's and safety rounding. Patient is able to make needs known and call capps within reach. PLAN MOVING FORWARD: Monitor Tele, control CP and BP, NPO at MD for cath, monitor labor relations worker sites, D/C Planning INDIVIDUALIZED FALL PREVENTION INTERVENTIONS: [...] 11:20 AM EDT Office Visit Cardiology at [address] [address] Izaiah Meyer MD [facility] [place] [address] Scheduled Referrals Name Type Priority Associated Diagnoses [...] [facility] Monocyte % 16.9 % [facility] Monocyte Abs 1.4(H) 0.3 - 0.9 x10(3)/mc L [facility] Eos % 3.7 % [facility] Eosinophils Abs 0.3 0.0 - 0.4 x10(3)/mc L [facility] Basophil % 0.5 % [facility] Baso Absolute 0.0 0.0 [...] HEMATOLOGY ORDERABLE S [facility] [place] [address] * (ABNORMAL) Hemogram (11/03/2023 3:46 AM EDT) White Blood Cell 8.3 4.0 - 9.5 x10(3)/[facility] LAB[facility] Red Blood Cell 3.77(L) 4.00 - 5.21 x10(6)/[facility] Hemoglobin 13.1 11.7 - 15.5 g/dL [facility] Hematocrit 38.0 35.7 - 45.8 % [facility] Mean Cell Volume 100.8(H) 82.6 - 94.4 fL [facility] Mean Cell Hemoglobin 34.7(H) 27.1 - 32.0 pg [facility] Mean Cell Hemoglobin Concentration 34.5 31.7 - 35.0 g/dL [facility] Platelet 181 145 - 357 x10(3)/ L [facility] RDW Standard Deviation 54.7(H) 37.0 - 46.0 [facility] RDW coefficient of variation 14.6(H) 11.5 - 14.1 % [facility] Mean Platelet Volume 11.2 7.6 - 12.9 [facility] NRBC% auto 0.0 % [facility] NRBC Absolute 0.000 0.000 - 0.000 x10(3)/ L [facility] Blood 11/03/2023 3:46 AM EDT 11/03/2023 4:11 AM EDT Narrative Resulting Agency Comment Spec In Lab Qamar Gallardo MD HEMATOLOGY ORDERABLE S Performing Organization Address City/[facility]/ZIP Co de Phone Number [facility] [place] [address] * Phosphorus (11/03/2023 3:46 AM EDT) Phosphorus 3.2 2.5 - 4.5 mg/dL [facility] Comment:result rechecked-KS Blood 11/03/2023 3:46 AM EDT 11/03/2023 4:11 AM EDT Narrative Resulting Agency Comment Spec In Lab Rosa Cornejo MD CHEMISTRY ORDERABLE S Performing Organization Address [facility]/ZIP Co de Phone Number [facility] [place] [address] * Magnesium (11/03/2023 3:46 AM EDT) Magnesium 0.90 0.69 - 1.07 mmol/L [facility] Blood 11/03/2023 3:46 AM EDT 11/03/2023 4:11 AM EDT Narrative Resulting Agency Comment Spec In Lab Rosa Cornejo MD CHEMISTRY ORDERABLE S Performing Organization Address City/[facility]/ZIP Co de Phone Number [facility] [place] [address] * (ABNORMAL) Basic Metabolic Panel (non-fasting) (11/03/2023 3:46 AM EDT) Glucose 105 65 - 199 mg/dL [facility] [...] CHEMISTRY ORDERABLE S [facility] [place] [address] * EKG 12 Lead (11/02/2023 12:44 PM EDT) Ventricular rate 83 BPM MUSE SYSTEM Atrial Rate 83 BPM MUSE SYSTEM P-R Interval 216 ms MUSE SYSTEM QRS Duration 90 ms MUSE SYSTEM Q-T Interval 384 ms MUSE SYSTEM QTC Calculated (Bezet) 451 ms MUSE SYSTEM Calculated P [place] 92 degrees MUSE SYSTEM Calculated R [place] -51 degrees MUSE SYSTEM Calculated T [place] -33 degrees MUSE SYSTEM INTERPRETATION Sinus rhythm with 1st degree A-V block with Premature atrial complexes Left axis deviation Moderate voltage criteria for LVH, may be normal variant ( R in aVL , [place] product ) Anterolatera l infarct (cited on or before 01-NOV-2023) Abnormal ECG When compared with ECG of 01-NOV-2023 22:10, Premature atrial complexes are now Present PA interval has increased Vent. rate has decreased BY ??56 BPM Confirmed by MD Kevin, Esteban ([id number]) on 11/02/2023 1:32:10 PM MUSE SYSTEM 11/02/2023 12:4 4 PM EDT 11/02/2023 1:32 PM EDT Rosa Hugo MD ECG ORDERABLES MUSE SYSTEM * (ABNORMAL) Urinalysis Microscopic Exam (11/02/2023 11:40 AM EDT) RBC, Urine <1 0 - 4 /HPF [facility] Comment: Interpret results with caution, microscopic results are from suboptimal specimen volume WBC, Urine 16(H) 0 - 5 /HPF [facility] Comment: Interpret results with caution, microscopic results are from suboptimal specimen volume Bacteria, Urine Many(A) None /HPF [facility] Squamous Epithelial Cells Raw Data, Urine 10(H) <=4 /HPF [facility] Hyaline Casts, Urine 2 0 - 2 /LPF [facility] Comment: Interpret results with caution, microscopic results are from suboptimal specimen volume Clean Catch Urine 11/02/2023 11:40 AM EDT 11/02/2023 12:05 PM EDT Narrative Resulting Agency Comment Spec In Lab Elmer Tamez MD URINE ORDERABLES [facility] [place] [address] * (ABNORMAL) Urinalysis with reflex Culture (11/02/2023 [...] CENTER LABORATORY Leukocytes, Urine Dipstick Small(A) Negative [facility] Appearance, Urine Dipstick Cloudy(A) Clear [facility] Specific [place] Urine Automated >=1.030(A) 1.005 - 1.030 [facility] Color, Urine Dipstick Dark Yellow Yellow [facility] Reflex to Culture Yes [facility] Clean Catch Urine 11/02/2023 11:40 AM EDT 11/02/2023 12:04 PM EDT Narrative Resulting Agency Comment Spec In Lab Rosa Hugo MD URINE ORDERABLES [facility] [place] [address] * Respiratory Panel PCR (11/02/2023 10:15 AM EDT) Respiratory Panel Source COMMISSARY OFFICER Swab [facility] Respiratory Panel PCR Negative Negative [facility] Comment: Respiratory Panels are performed on the [employer], using multiplexed PCR nucleic acid detection. ??Negative [...] performed using the [employer] Respiratory Panel 2.1 ([employer]) as authorized by the FDA issued Emergency Use Authorization (EUA). This panel also tests for multiple other viral and bacterial pathogens. This assay is intended for In-vitro Diagnostic (IVD) use with nasopharyngeal swabs in viral transport media. The assay is performed based on the instructions for use and additional guidance provided by the FDA. Testing is performed in laboratories within the [facility], each of which is certified [...] fact sheets at the following FDA website: https://www.fda.gov/medical-devices/blnihhizmad-jtddsqx-2907-kbysa-36-gyhnjeevy- use-a ezsesjtzflltl-fdqavpd-ovjmmfu/bfrfl-wxdieqlyryp-ygyh Human Metapneumovirus Not Detected Not Detected [facility] [...] GEN ERAL ORDERABLES [facility] [place] [address] * XR Chest One View (11/02/2023 2:51 AM EDT) WORKSTATION ID [id number] DH RAD Anatomical Region Laterality Modality Chest [...] who have questions please contact the health senior care manager that requested your imaging first. ? Electronically signed by: Omaira Tran MD, [facility] ([phone]), at 11/02/2023 4:56 AM Narrative 11/02/2023 4:56 [...] patients who have questions please contactthe health senior care manager that requested your imaging first. Electronically signed by: Omaira Tran MD, [facility]([phone]), at 11/02/2023 4:56 AM Rosa Hugo MD IMG DX ORDERABLES * (ABNORMAL) Differential, Automated (11/02/2023 12:35 AM EDT) Neutrophil % 76.5 % [facility] Neutrophil Absolute 7.69(H) 1.70 - 6.10 x10(3)/mc L [facility] Lymph % 8.3 % [facility] Lymphocytes Abs 0.8(L) 0.9 - 3.2 x10(3)/mc L [facility] Monocyte % 12.9 % [facility] Monocyte Abs 1.3(H) 0.3 - 0.9 x10(3)/mc L [facility] Eos % 1.4 % [facility] Eosinophils Abs 0.1 0.0 - 0.4 x10(3)/mc L [facility] Basophil % 0.4 % [facility] Baso Absolute 0.0 0.0 [...] Absolute 0.05(H) 0.00 - 0.04 x10(3)/ L [facility] Blood 11/02/2023 12:3 5 AM EDT 11/02/2023 12:43 AM EDT Narrative Resulting Agency Comment Spec In Lab Qamar Gallardo MD HEMATOLOGY ORDERABLE S [facility] [place] [address] * (ABNORMAL) Hemogram (11/02/2023 12:35 AM EDT) White Blood Cell 10.0(H) 4.0 - 9.5 x10(3)/mc L [facility] NRBC% auto 0.0 % [facility] NRBC Absolute 0.000 0.000 - 0.000 x10(3)/mc L [facility] Blood 11/02/2023 12:3 5 AM EDT 11/02/2023 12:43 AM EDT Narrative Resulting Agency Comment Spec In Lab Qamar Gallardo MD HEMATOLOGY ORDERABLE S [facility] [place] [address] * (ABNORMAL) Phosphorus (11/02/2023 12:35 AM EDT) Phosphorus 1.6(L) 2.5 - 4.5 mg/dL [facility] Blood 11/02/2023 12:3 5 AM EDT 11/02/2023 12:43 AM EDT Narrative Resulting Agency Comment Spec In Lab Rosa Cornejo MD CHEMISTRY ORDERABLE S Performing Organization Address [facility]/ZIP Co de Phone Number [facility] [place] [address] * Magnesium (11/02/2023 12:35 AM EDT) Magnesium 0.87 0.69 - 1.07 mmol/L [facility] Blood 11/02/2023 12:3 5 AM EDT 11/02/2023 12:43 AM EDT Narrative Resulting Agency Comment Spec In Lab Rosa Cornejo MD CHEMISTRY ORDERABLE S Performing Organization Address City/[facility]/ZIP Co de Phone Number [facility] [place] [address] * Basic Metabolic Panel (non-fasting) (11/02/2023 12:35 [...] CHEMISTRY ORDERABLE S [facility] [place] [address] * Blood culture (11/02/2023 12:35 AM EDT) Blood Culture No growth at 5 days. [facility] Blood 11/02/2023 12:3 5 AM EDT 11/02/2023 1:55 AM EDT Comment:#2 site ukn Narrative Resulting Agency Comment Spec In Lab Rosa Hugo MD MICROBIOLOGY - BLO OD ORDERABLES Performing Organization Address [facility] Co de Phone Number [facility] [place] [address] * Blood culture (11/02/2023 12:15 AM EDT) Blood Culture No growth at 5 days. [facility] Blood 11/02/2023 12:1 5 AM EDT 11/02/2023 1:54 AM EDT Comment:#1site unk Narrative Resulting Agency Comment Spec In Lab Rosa Hugo MD MICROBIOLOGY - BLO OD ORDERABLES Performing Organization Address [facility] Co de Phone Number [facility] [place] [address] * EKG 12 Lead (11/01/2023 10:10 PM EDT) Ventricular rate 139 BPM MUSE SYSTEM Atrial Rate 139 BPM MUSE SYSTEM P-R Interval 168 ms MUSE SYSTEM QRS Duration 84 ms MUSE SYSTEM Q-T Interval 286 ms MUSE SYSTEM QTC Calculated (Bezet) 435 ms MUSE SYSTEM Calculated R [place] -59 degrees MUSE SYSTEM Calculated T [place] -27 degrees MUSE SYSTEM INTERPRETATION Mid-RP tachycardia, consider sinus tachycardia or SVT Left axis deviation Moderate voltage criteria for LVH, may be normal variant ( R in aVL , [place] product ) Inferior infarct (cited on or before 01-NOV-2023) Anterolateral infarct (cited on or before 01-NOV-2023) Abnormal ECG When compared with ECG of 01-NOV-2023 15:22, Vent. rate Although rate has increased Serial changes of Anterior infarct Present I personally reviewed the tracing and edited the fellows interpretation Confirmed by fellow MD Bowen Ashley ([id number]) on 11/04/2023 7:57:50 AM Confirmed by MD Carrillo Danette ([id number]) on 11/04/2023 4:32:03 PM MUSE SYSTEM 11/01/2023 10:1 0 PM EDT 11/04/2023 4:32 PM EDT Rosa Cornejo MD ECG ORDERABLES MUSE SYSTEM * (ABNORMAL) Hemogram (11/01/2023 10:06 PM EDT) White Blood Cell 10.4(H) 4.0 - 9.5 x10(3)/[facility] LABORATORY Red Blood Cell 4.11 4.00 - 5.21 x10(6)/[facility] LABORATORY Hemoglobin 14.0 11.7 - 15.5 g/dL [facility] Hematocrit 41.1 35.7 - 45.8 % [facility] Mean Cell Volume 100.0(H) 82.6 - 94.4 fL [facility] Mean Cell Hemoglobin 34.1(H) 27.1 - 32.0 pg [facility] Mean Cell Hemoglobin Concentration 34.1 31.7 - 35.0 g/dL [facility] Platelet 197 145 - 357 x10(3)/ L [facility] RDW Standard Deviation 54.0(H) 37.0 - 46.0 fL [facility] RDW coefficient of variation 14.6(H) 11.5 - 14.1 % [facility] Mean Platelet Volume 11.2 7.6 - 12.9 fL [facility] NRBC% auto 0.0 % [facility] NRBC Absolute 0.000 0.000 - 0.000 x10(3)/ L [facility] Blood 11/01/2023 10:0 6 PM EDT 11/01/2023 10:22 PM EDT Narrative Resulting Agency Comment Spec In Lab Rosa Hugo MD HEMATOLOGY ORDERAB LES Performing Organization Address City/[facility]/ZIP Co de Phone Number [facility] [place] [address] * POCT Glucose (11/01/2023 5:59 PM EDT) [facility] Signature Glucose, POC 104 65 - 199 mg/dL [facility] Comment: Supplemental ranges: <140 mg/dL before meals <180 mg/dL all other times of the day Blood 11/01/2023 5:59 PM EDT 11/01/2023 5:59 PM EDT Rosa Hugo MD POINT OF CARE TEST ORDERABLES Performing Organization Address [facility] Co de Phone Number [facility] [place] [address] * POCT Glucose (11/01/2023 5:35 PM EDT) [facility] Glucose, POC 85 65 - 199 mg/dL [facility] Comment: Supplemental ranges: <140 mg/dL before meals <180 mg/dL all other times of the day Blood 11/01/2023 5:35 PM EDT 11/01/2023 5:35 PM EDT Rosa Hugo MD POINT OF CARE TEST ORDERABLES Performing Organization Address City/[facility] Co de Phone Number [facility] [place] [address] * EKG 12 Lead (11/01/2023 3:22 PM EDT) Ventricular rate 59 BPM MUSE SYSTEM Atrial Rate 59 BPM MUSE SYSTEM P-R Interval 220 ms MUSE SYSTEM QRS Duration 94 ms MUSE SYSTEM Q-T Interval 428 ms MUSE SYSTEM QTC Calculated (Bezet) 423 ms MUSE SYSTEM Calculated P [place] 76 degrees MUSE SYSTEM Calculated R [place] -50 degrees MUSE SYSTEM Calculated T [place] -59 degrees MUSE SYSTEM INTERPRETATION Sinus bradycardia [...] Modality Other Narrative 11/02/2023 4:57 PM EDT ?[facility] ? Cardiac Catheterization/Intervention Report ? Patient Name: Adin Santos ? Procedure Date: 11/01/2023 ? A #: [id number] ? Primary Physician: Rosa Dewey I ? Case #: [id number] ? File Name: [id number] ? Catheterization Order Number: [id number] ? [facility] ? Final Report [place], [place] ? Patient Name: ? Adin M. Goguen ?ID#: ?[id number] ? : ?1940 ? Procedure Date: ? [...] procedure was Urgent. The indication for ?the labor relations worker visit is ACS greater than 24 hrs. [...] ??A premounted ? 3.50 x 15 mm [place] (RADHA) was deployed with a maximum ? [...] A premounted 3.50 x 15 mm [place] (RADHA) was deployed ? with a maximum [...] dose administered prior to arrival in the labor relations worker. ?Recommended anti-platelet/anti-thrombotic regimen: ?Continue aspirin 81 mg daily for indefinitely. ?Continue clopidogrel 75 mg daily for 12 months then stop. ?These recommendations are made at the time of the intervention. Patient ?and provider preferences or a changing clinical situation may require ?modification of this regimen. Consult [facility] Interventional Cardiology for ?questions. ?The 1 year [...] Procedure Note Rosa Dewey MD - 12/12/2023 [facility] Cardiac Catheterization/Intervention Report Patient Name: Adin Santos Procedure Date: 11/01/2023 A #: [id number] Primary Physician: Rosa Dewey I Case #: [id number] File Name: [id number] Catheterization Order Number: [id number] [facility] FinalReport [place], [place] Patient Name: Adin Santos ID#:[id number] :1940 Procedure Date: November 01, 2023 Case [...] was designated as ASA Class III. [facility]: Vulnerable. Diagnostic Tests: Prior Coronary Angiography: LV ejection fraction within 6 months is 65%. Electrocardiography: EKG was assessed by ECG. EKG was Abnormal. EKG showed other abnormality. Medications Prior to Procedure: Aspirin, Angiotensin II Receptor Rodrick and Statin. Indications for Diagnostic Cath: The priority of the diagnostic procedure was Urgent. The indicationfor the labor relations worker visit is ACS greater than 24 hrs. [...] 14 atmospheres. Apremounted 3.50 x 15 mm [place] (RADHA) was deployed with amaximum inflation pressure [...] The lesion was predilated with a 3.00mm [id number] MM balloon with a maximum inflation pressure of 14atmospheres. A premounted 3.50 x 15 mm [place] (RADHA) wasdeployed with a maximum inflation pressure [...] dose administered prior to arrival in the labor relations worker. Recommended anti-platelet/anti-thrombotic regimen: Continue aspirin 81 mg daily for indefinitely. Continue clopidogrel 75 mg daily for 12 months then stop. These recommendations are made at the time of the intervention.Patient and provider preferences or a changing clinical situation mayrequire modification of this regimen. Consult [facility] Interventional Cardiologyfor questions. The 1 year bleeding [...] * POCT Glucose (11/01/2023 7:06 AM EDT) [facility] Glucose, POC 93 65 - 199 mg/dL [facility] Comment: Supplemental ranges: <140 mg/dL before meals <180 mg/dL all other times of the day Blood 11/01/2023 7:06 AM EDT 11/01/2023 7:06 AM EDT Jean Laboy MD POINT OF CARE TEST O RDERABLES [facility] [place] [address] * (ABNORMAL) Differential, Automated (11/01/2023 3:09 AM EDT) Pathologist [facility] Neutrophil % 63.9 % [facility] Neutrophil Absolute 5.54 1.70 - 6.10 x10(3)/mc L [facility] Lymph % 20.0 % [facility] Lymphocytes Abs 1.7 0.9 - 3.2 x10(3)/mc L [facility] Monocyte % 11.9 % [facility] Monocyte Abs 1.0(H) 0.3 - 0.9 x10(3)/mc L [facility] Eos % 3.2 % [facility] Eosinophils Abs 0.3 0.0 - 0.4 x10(3)/ L [facility] Basophil % 0.5 % [facility] Baso Absolute 0.0 0.0 [...] x10(3)/ L [facility] Blood 11/01/2023 3:09 AM EDT 11/01/2023 3:29 AM EDT Narrative Resulting Agency Comment Spec In Lab Qamar Gallardo MD HEMATOLOGY ORDERABLE S Performing Organization Address City/State/[facility] Co de Phone Number [facility] [place] [address] * (ABNORMAL) Hemogram (11/01/2023 3:09 AM EDT) White Blood Cell 8.7 4.0 - 9.5 x10(3)/ L [facility] Red Blood Cell 3.72(L) 4.00 - 5.21 x10(6)/mc L [facility] Hemoglobin 12.5 11.7 - 15.5 g/dL [...] MEDICAL CENTER LABORAT[facility] NRBC% auto 0.0 % [facility] NRBC Absolute 0.000 0.000 - 0.000 x10(3)/mc L [facility] Blood 11/01/2023 3:09 AM EDT 11/01/2023 3:29 AM EDT Narrative Resulting Agency Comment Spec In Lab Qamar Gallardo MD HEMATOLOGY ORDERABLE S Performing Organization Address City/[facility]/ZIP Co de Phone Number [facility] [place] [address] * Phosphorus (11/01/2023 3:09 AM EDT) Phosphorus 2.5 2.5 - 4.5 mg/dL [facility] Blood 11/01/2023 3:09 AM EDT 11/01/2023 3:29 AM EDT Narrative Resulting Agency Comment Spec In Lab Rosa Cornejo MD CHEMISTRY ORDERABLE S Performing Organization Address City/[facility]/ZIP Co de Phone Number [facility] [place] [address] * Magnesium (11/01/2023 3:09 AM EDT) Magnesium 0.82 0.69 - 1.07 mmol/L [facility] Blood 11/01/2023 3:09 AM EDT 11/01/2023 3:29 AM EDT Narrative Resulting Agency Comment Spec In Lab Rosa Cornejo MD CHEMISTRY ORDERABLE S [facility] [place] [address] * (ABNORMAL) Basic Metabolic Panel (non-fasting) (11/01/2023 [...] CHEMISTRY ORDERABLE S [facility] [place] [address] * (ABNORMAL) Troponin (10/31/2023 2:46 PM EDT) [...] troponin value can be found in the [facility] Test Catalog Troponin - [facility] Test Catalog Reference: Fourth [place] Definition of Myocardial Infarction. Journal of the [place] [employer] 2018;72:1802-4557 Blood 10/31/2023 2:46 PM EDT 10/31/2023 2:55 PM EDT Narrative Resulting Agency Comment Spec In Lab Jean Laboy MD CHEMISTRY ORDERABLES Performing Organization Address [facility] Co de Phone Number [facility] [place] [address] * EKG 12 Lead (10/31/2023 1:07 PM EDT) Ventricular rate 54 BPM MUSE SYSTEM Atrial Rate 54 BPM MUSE SYSTEM P-R Interval 218 ms MUSE SYSTEM QRS Duration 92 ms MUSE SYSTEM Q-T Interval 540 ms MUSE SYSTEM QTC Calculated (Bezet) 512 ms MUSE SYSTEM Calculated P [place] 85 degrees MUSE SYSTEM Calculated R [place] -44 degrees MUSE SYSTEM Calculated T [place] -69 degrees MUSE SYSTEM INTERPRETATION Sinus bradycardia with 1st degree A-V block Left axis deviation Moderate voltage criteria for LVH, may be normal variant ( R in aVL , [place] product ) T wave abnormality, consider inferolateral ischemia Prolonged QT Abnormal ECG When compared with ECG of 30-OCT-2023 20:21, Incomplete right bundle branch block is no longer Present Confirmed by MD NEFTALI, CHIDI ([id number]) on 10/31/2023 2:28:46 PM MUSE SYSTEM 10/31/2023 1:07 PM EDT 10/31/2023 2:28 PM EDT Rosa Cornejo MD ECG ORDERABLES Performing Organization Address [facility] Co de Phone Number MUSE SYSTEM * [...] troponin value can be found in the [facility] Test Catalog Troponin - [facility] Test Catalog Reference: Fourth [place] Definition of Myocardial Infarction. Journal of the [place] [employer] 2018;72:8601-0317 Blood 10/31/2023 11:3 7 AM EDT 10/31/2023 11:50 AM EDT Narrative Resulting Agency Comment Spec In Lab Rosa Cornejo MD CHEMISTRY ORDERABLE S [facility] [place] [address] * ECHO COMPLETE (10/31/2023 8:52 AM EDT) Anatomical Region Laterality Modality Cardiac Other 10/31/2023 7:57 AM EDT Narrative 10/31/2023 9:45 AM EDT [address] [place] [address] ? Echocardiogram Report Name: ADIN SANTOS ? Study Date: 10/31/2023 07:57 AMBP: 106/76 mmHg ? Patient Location: [facility] 0481 A : 1940 ? Height: 163 cm ? Account: [id number] Age: 83 yrs ? Weight: 76 kg Gender: Female ?BSA: 1.8 m2 Ordering Physician: ROSA DEWEY Referring Physician: OMAIRA GIRON Performed By: HAFSA Carmichael Reason For Study: STEMI Interpreting Fellow: Raymond Warren. Exam Location: [facility]. Interpretation Summary -The left ventricle is of [...] is no prior echocardiogram for comparison. Procedure Complete-27955. Satisfactory quality. There is sinus bradycardia. Left [...] Note Edgard Wang MD - 10/31/2023 [address] [place] [id number] Echocardiogram Report Name: TREY SANTOSMarco A Catherine Study Date: 407:57 AMBP: 106/76 mmHg Patient Location: [address] : 1940 Height: 163 cm Account: [id number] Age: 83 yrs Weight: 76 kg Gender: Female BSA: 1.8 m2 Ordering Physician: ROSA DEWEY Referring Physician: OMAIRA GIRON Performed By: HAFSA Carmichael Reason For Study: STEMI Interpreting Fellow: Raymond Warren. Exam Location: [facility]. Interpretation Summary -The left ventricle is of [...] is no prior echocardiogram for comparison. Procedure Complete-28761. Satisfactory quality. There is sinus bradycardia. Left [...] EDT) Troponin-T, High Sensitivity 571(H) <=14 ng/L [facility] [...] troponin value can be found in the [facility] Test Catalog Troponin - [facility] Test Catalog Reference: Fourth [place] Definition of Myocardial Infarction. Journal of the [place] [employer] 2018;72:8802-7462 Blood 10/31/2023 8:51 AM EDT 10/31/2023 9:12 AM EDT Narrative Resulting Agency Comment Spec In Lab Rosa Cornejo MD CHEMISTRY ORDERABLE S Performing Organization Address City/State/[facility] Co de Phone Number [facility] [place] [address] * CARDIAC CATHETERIZATION (10/31/2023 8:10 AM EDT) Anatomical Region Laterality Modality Other Narrative 11/07/2023 9:42 AM EDT ?[facility] ? Cardiac Catheterization/Intervention Report ? Patient Name: Adin Santos M. ? Procedure Date: 10/30/2023 ? A #: [id number] ? Primary Physician: Rosa Dewey I ? Case #: [id number] ? File Name: [id number] ? Catheterization Order Number: [id number] ? [facility] ? Final Report [place], [place] ? Patient Name: ? Adin M. Goguen ?ID#: ?[id number] ? : ?1940 ? Procedure Date: ? October 30, 2023 ? Case #: ? [id number] ? Room: ? 5 ? Case Physician: [...] procedure was Emergent. The indication for ?the labor relations worker visit is ACS less than or equal [...] ? A premounted 4.00 x 38 mm [place] (RADHA) was deployed ? with a maximum [...] dose administered prior to arrival in the labor relations worker. ?Recommended anti-platelet/anti-thrombotic regimen: ?Continue aspirin 81 mg daily for 12 months then stop. ?Continue clopidogrel 75 mg daily for indefinitely. ?These recommendations are made at the time of the intervention. Patient ?and provider preferences or a changing clinical situation may require ?modification of this regimen. Consult [facility] Interventional Cardiology for ?questions. ? Conclusions: ?* [...] present for the entire procedure. ?Dr. Rosa Deewy M.D. was present during the moderate sedation [...] Procedure Note Rosa Dewey MD - 12/05/2023 [facility] Cardiac Catheterization/Intervention Report Patient Name: Adin Santos Procedure Date: 10/30/2023 A #: [id number] Primary Physician: Rosa Dewey I Case #: [id number] File Name: [id number] Catheterization Order Number: [id number] [facility] FinalReport [place], [place] Patient Name: Adin Santos ID#:[id number] :1940 Procedure Date: October 30, 2023 Case [...] was designated as ASA Class III. The [facility] clinical frailtyscale is 5: Mildly Frail. Diagnostic Tests: Electrocardiography: EKG was assessed by ECG. EKG was Abnormal. EKG showed STDeviation >= 0.5 mm, other abnormality and dynamic EKG changes. Medications Prior to Procedure: Aspirin, Angiotensin II Receptor Rodrick, Beta Rodrick andStatin. Indications for Diagnostic Cath: The priority of the diagnostic procedure was Emergent. Theindication for the labor relations worker visit is ACS less than or equal [...] A premounted 4.00 x 38 mm [place] (RADHA) wasdeployed with a maximum inflation pressure [...] dose administered prior to arrival in the labor relations worker. Recommended anti-platelet/anti-thrombotic regimen: Continue aspirin 81 mg daily for 12 months then stop. Continue clopidogrel 75 mg daily for indefinitely. These recommendations are made at the time of the intervention.Patient and provider preferences or a changing clinical situation mayrequire modification of this regimen. Consult [facility] Interventional Cardiologyfor questions. Conclusions: * Two vessel [...] * (ABNORMAL) Troponin (10/31/2023 4:21 AM EDT) [facility] Troponin-T, High Sensitivity 457(H) <=14 [...] troponin value can be found in the [facility] Test Catalog Troponin - [facility] Test Catalog Reference: Fourth [place] Definition of Myocardial Infarction. Journal of the [place] [employer] 2018;72:3830-3417 Blood 10/31/2023 4:21 AM EDT 10/31/2023 4:30 AM EDT Narrative Resulting Agency Comment Spec In Lab Rosa Cornejo MD CHEMISTRY ORDERABLE S Performing Organization Address City/State/[facility] Co de Phone Number [facility] [place] [address] * (ABNORMAL) Differential, Automated (10/31/2023 3:05 AM EDT) Neutrophil % 71.7 % [facility] Neutrophil Absolute 8.21(H) 1.70 - 6.10 x10(3)/mc L [facility] Lymph % 16.9 % [facility] Lymphocytes Abs 1.9 0.9 - 3.2 x10(3)/mc L [facility] Monocyte % 9.4 % [facility] Monocyte Abs 1.1(H) 0.3 - 0.9 x10(3)/mc L [facility] Eos % 1.3 % [facility] Eosinophils Abs 0.2 0.0 - 0.4 x10(3)/mc L [facility] Basophil % 0.4 % [facility] Baso Absolute 0.0 0.0 [...] MD HEMATOLOGY ORDERABLE S Performing Organization Address City/State/[facility] Co de Phone Number [facility] [place] [address] * (ABNORMAL) Hemogram (10/31/2023 3:05 AM EDT) White Blood Cell 11.5(H) 4.0 - 9.5 x10(3)/ L [facility] Red Blood Cell 3.75(L) 4.00 - 5.21 x10(6)/ L [facility] Hemoglobin 12.6 [...] CENTER LABORATORY Platelet 206 145 - 357 x10(3)/ L [facility] RDW Standard Deviation 53.4(H) 37.0 - 46.0 fL [facility] RDW coefficient of variation 14.6(H) 11.5 - 14.1 % [facility] Mean Platelet Volume 11.1 7.6 - 12.9 fL [facility] NRBC% auto 0.0 % [facility] NRBC Absolute 0.000 0.000 - 0.000 x10(3)/mc L [facility] Blood 10/31/2023 3:05 AM EDT 10/31/2023 3:13 AM EDT Narrative Resulting Agency Comment Spec In Lab Qamar Gallardo MD HEMATOLOGY ORDERABLE S Performing Organization Address [facility] Co de Phone Number [facility] [place] [address] * (ABNORMAL) APTT (10/31/2023 3:05 AM EDT) [...] MD HEMATOLOGY ORDERABL ES Performing Organization Address [facility] Co de Phone Number [facility] [place] [address] * (ABNORMAL) Prothrombin Time (10/31/2023 3:05 AM [...] HEMATOLOGY ORDERABL ES [facility] [place] [address] * (ABNORMAL) Differential, Automated (10/31/2023 1:37 AM EDT) Neutrophil % 71.1 % [facility] Neutrophil Absolute 7.53(H) 1.70 - 6.10 x10(3)/mc L [facility] Lymph % 18.0 % [facility] Lymphocytes Abs 1.9 0.9 - 3.2 x10(3)/mc L [facility] Monocyte % 8.7 % [facility] Monocyte Abs 0.9 0.3 - 0.9 x10(3)/mc L [facility] Eos % 1.6 % [facility] Eosinophils Abs 0.2 0.0 - 0.4 x10(3)/mc L [facility] Basophil % 0.4 % [facility] Baso Absolute 0.0 0.0 [...] HEMATOLOGY ORDERABLE S [facility] [place] [address] * (ABNORMAL) Hemogram (10/31/2023 1:37 AM EDT) [...] MEDICAL CENTER LABORATORY NRBC% auto 0.0 % [facility] NRBC Absolute 0.000 0.000 - 0.000 x10(3)/mc L [facility] Blood 10/31/2023 1:37 AM EDT 10/31/2023 1:46 AM EDT Narrative Resulting Agency Comment Spec In Lab Qamar Gallardo MD HEMATOLOGY ORDERABLE S [facility] [place] [address] * Phosphorus (10/31/2023 1:37 AM EDT) [facility] [facility] Phosphorus 3.2 2.5 - 4.5 mg/dL [facility] Blood 10/31/2023 1:37 AM EDT 10/31/2023 1:46 AM EDT Narrative Resulting Agency Comment Spec In Lab Rosa Cornejo MD CHEMISTRY ORDERABLE S Performing Organization Address City/[facility]/ZIP Co de Phone Number [facility] [place] [place] [address] * Magnesium (10/31/2023 1:37 AM EDT) [facility] Magnesium 0.83 0.69 - 1.07 mmol/L [facility] Blood 10/31/2023 1:37 AM EDT 10/31/2023 1:46 AM EDT Narrative Resulting Agency Comment Spec In Lab Rosa Cornejo MD CHEMISTRY ORDERABLE S Performing Organization Address City/[facility]/ZIP Co de Phone Number [facility] [place] [address] * Basic Metabolic Panel (non-fasting) (10/31/2023 1:37 AM EDT) [facility] Glucose 114 65 - 199 mg/dL [facility] [...] CHEMISTRY ORDERABLE S [facility] [place] [address] * (ABNORMAL) Troponin (10/31/2023 1:37 AM EDT) [...] troponin value can be found in the [facility] Laboratory Test Catalog Troponin - [facility] Test Catalog Reference: Fourth [place] Definition of Myocardial Infarction. Journal of the [place] [employer] 2018;72:8732-2232 Blood 10/31/2023 1:37 AM EDT 10/31/2023 1:46 AM EDT Narrative Resulting Agency Comment Spec In Lab Rosa Cornejo MD CHEMISTRY ORDERABLE S Performing Organization Address City/State/[facility] [place] [address] * EKG 12 Lead (10/31/2023 1:20 AM EDT) Ventricular rate 52 BPM MUSE SYSTEM Atrial Rate 52 BPM MUSE SYSTEM P-R Interval 224 ms MUSE SYSTEM QRS Duration 108 ms MUSE SYSTEM Q-T Interval 544 ms MUSE SYSTEM QTC Calculated (Bezet) 505 ms MUSE SYSTEM Calculated P [place] 90 degrees MUSE SYSTEM Calculated R [place] -57 degrees MUSE SYSTEM Calculated T [place] -63 degrees MUSE SYSTEM INTERPRETATION Sinus bradycardia [...] Cornejo MD ECG ORDERABLES Performing Organization Address [facility] de Phone Number MUSE SYSTEM * EKG 12 Lead (10/30/2023 10:40 PM EDT) Ventricular rate 55 BPM MUSE SYSTEM Atrial Rate 55 BPM MUSE SYSTEM P-R Interval 232 ms MUSE SYSTEM QRS Duration 102 ms MUSE SYSTEM Q-T Interval 520 ms MUSE SYSTEM QTC Calculated (Bezet) 497 ms MUSE SYSTEM Calculated P [place] 75 degrees MUSE SYSTEM Calculated R [place] -53 degrees MUSE SYSTEM Calculated T [place] -57 degrees MUSE SYSTEM INTERPRETATION Sinus bradycardia with 1st degree A-V block Left anterior fascicular block Moderate voltage criteria for LVH, may be normal variant ( R in aVL , [place] product ) T wave abnormality, consider inferior ischemia T wave abnormality, consider anterolateral ischemia Prolonged QT Abnormal ECG When compared with ECG of 30-OCT-2023 20:21, Incomplete right bundle branch block is no longer Present Confirmed by Charles COFFMAN, Butch ([id number]) on 11/01/2023 8:58:01 PM MUSE SYSTEM 10/30/2023 10:4 0 PM EDT 11/01/2023 8:58 PM EDT Rosa Cornejo MD ECG ORDERABLES Performing Organization Address [facility] Phone Number MUSE SYSTEM * XR Chest One View (10/30/2023 10:10 PM EDT) WORKSTATION ID [id number] RAD Anatomical Region Laterality Modality Chest N/A Digital Radiogra phy Impressions 10/30/2023 10:32 PM EDT 1. ??Examination limited by low lung volumes. 2. ??Findings suggesting pulmonary vascular congestion with possible mild interstitial edema. 3. ??Known ascending aortic aneurysm, as seen on recent CT. 4. ??Nonspecific widening mediastinum. This can be secondary to magnification from portable technique and low lung volumes. Findings similar to senior analyst programmer radiograph from CT 10/30/2023. Thank you for letting us participate in the care of this patient. ??If you are a health care provider and have any questions regarding this report, please contact the number below. ??For patients who have questions please contact the health senior care manager that requested your imaging first. ? Electronically signed by: Wilson Mccartney MD, [facility] ([phone]), at 10/30/2023 10:32 PM Narrative 10/30/2023 10:32 [...] and low lung volumes. Findings similar to senior analyst programmer radiograph from CT 10/30/2023. Thank you for letting us participate in the care of this patient. If youare a health care provider and have any questions regarding this report,please contact the number below. For patients who have questions please contactthe health senior care manager that requested your imaging first. Rosa Cornejo MD IMG DX ORDERABLES * Green Tube HOLD (10/30/2023 10:05 PM EDT) [facility] Green Hold Sample in lab. [facility] Blood Venous Draw / Unknown 10/30/2023 10:05 PM EDT 10/30/2023 10:13 PM EDT Qamar Gallardo MD CHEMISTRY ORDERABLES [facility] [place] [address] * (ABNORMAL) Differential, Automated (10/30/2023 10:05 PM EDT) [facility] Neutrophil % 76.6 % [facility] Neutrophil Absolute 6.94(H) 1.70 - 6.10 x10(3)/mc L [facility] Lymph % 15.4 % [facility] Lymphocytes Abs 1.4 0.9 - 3.2 x10(3)/mc L [facility] Monocyte % 6.1 % [facility] Monocyte Abs 0.6 0.3 - 0.9 x10(3)/mc L [facility] Eos % 1.1 % [facility] Eosinophils Abs 0.1 0.0 - 0.4 x10(3)/ L [facility] Basophil % 0.6 % [facility] Baso Absolute 0.0 0.0 [...] HEMATOLOGY ORDERABLE S [facility] [place] [address] * (ABNORMAL) Hemogram (10/30/2023 10:05 PM EDT) [...] CENTER LABORATORY Platelet 211 145 - 357 x10(3)/ L [facility] RDW Standard Deviation 53.6(H) 37.0 - 46.0 fL [facility] RDW coefficient of variation 14.6(H) 11.5 - 14.1 % [facility] Mean Platelet Volume 11.1 7.6 - 12.9 fL [facility] NRBC% auto 0.0 % [facility] NRBC Absolute 0.000 0.000 - 0.000 x10(3)/mc L [facility] Blood 10/30/2023 10:0 5 PM EDT 10/30/2023 10:12 PM EDT Narrative Resulting Agency Comment Spec In Lab Qamar Gallardo MD HEMATOLOGY ORDERABLE S Performing Organization Address City/[facility]/ZIP Co de Phone Number [facility] [place] [address] * Hemoglobin A1c (10/30/2023 10:05 PM EDT) [...] Mellitus, Diabetes Care 2013; 36: Suppl. 1, L28-05 Estimated Average Glucose See note mg/dL [facility] Comment: Estimated Average Glucose not appropriate for patients over 70 years of age. Blood 10/30/2023 10:0 5 PM EDT 10/30/2023 10:12 PM EDT Narrative Resulting Agency Comment Spec In Lab Rosa Cornejo MD CHEMISTRY ORDERABLE S Performing Organization Address City/[facility]/ZIP Co de Phone Number [facility] [place] [address] * Lipid Panel (Reflex Direct LDL) (10/30/2023 10:05 PM EDT) Cholesterol, Total 218 mg/dL [facility] Comment: Desirable: ? <200 mg/dL Borderline High: 200-239 mg/dL Higher: ?>ey=570 mg/dL Triglyceride 46 mg/dL [facility] Comment: Normal: ?<150 mg/dL Borderline High: 150-199 mg/dL High: ?200-499 mg/dL Very High: ? >vz=028 mg/dL HDL Cholesterol 64 mg/dL [facility] Comment: Females: High Risk: <50 mg/dL Males: High Risk: <40 mg/dL LDL Cholesterol 145 mg/dL [facility] Comment: Desirable: ? <100 mg/dL Above Desirable: 100-129 mg/dL Borderline High: 130-159 mg/dL High: ?160-189 mg/dL Very High: ? >bw=634 mg/dL Lipid Interpretation See Note [facility] [...] ACC/AHA Guidelines (most recently Feliciano et al. [facility] 03/23/22): For individuals with atherosclerotic cardiovascular disease (ASCVD)or LDL >tk=872 mg/dL, use a high-intensity statin (40-80 mg [...] CHEMISTRY ORDERABLE S [facility] [place] [address] * TSH [place] (10/30/2023 10:05 PM EDT) Thyroid Stimulating Hormone 3.35 0.27 - 4.20 mcIU/mL [facility] Comment: Reference Interval (mcIU/mL): Females: ??First Trimester: 0.23-3.88 ??Second Trimester: 0.22-3.90 ??Third Trimester: 0.44-4.66 Blood 10/30/2023 10:0 5 PM EDT 10/30/2023 10:12 PM EDT Narrative Resulting Agency Comment Spec In Lab Rosa Cornejo MD CHEMISTRY ORDERABLE S [facility] [place] [address] * pro-Brain Natriuretic Peptide (10/30/2023 10:05 PM EDT) NT-proBNP 375 <=449 pg/mL [facility] Blood 10/30/2023 10:0 5 PM EDT 10/30/2023 10:12 PM EDT Narrative Resulting Agency Comment Spec In Lab Rosa Cornejo MD CHEMISTRY ORDERABLE S Performing Organization Address [facility]/ZIP Co de Phone Number [facility] [place] [address] * (ABNORMAL) Comprehensive metabolic panel (non-fasting) (10/30/2023 [...] [facility]/ZIP Co de Phone Number [facility] [place] [place] [address] * Phosphorus (10/30/2023 10:05 PM EDT) Phosphorus 3.3 2.5 - 4.5 mg/dL [facility] Blood 10/30/2023 10:0 5 PM EDT 10/30/2023 10:12 PM EDT Narrative Resulting Agency Comment Spec In Lab Rosa Cornejo MD CHEMISTRY ORDERABLE S Performing Organization Address City/[facility]/ZIP Co de Phone Number [facility] [place] [address] * Magnesium (10/30/2023 10:05 PM EDT) Magnesium 0.86 0.69 - 1.07 mmol/L [facility] Blood 10/30/2023 10:0 5 PM EDT 10/30/2023 10:12 PM EDT Narrative Resulting Agency Comment Spec In Lab Rosa Cornejo MD CHEMISTRY ORDERABLE S [facility] [place] [address] * (ABNORMAL) Troponin (10/30/2023 10:05 PM EDT) [...] troponin value can be found in the [facility] Test Catalog Troponin - [facility] Test Catalog Reference: Fourth [place] Definition of Myocardial Infarction. Journal of the [place] College of Cardiology 2018;72:0584-1058 Blood 10/30/2023 10:0 5 PM EDT 10/30/2023 10:12 PM EDT Narrative Resulting Agency Comment Spec In Lab Rosa Cornejo MD CHEMISTRY ORDERABLE S [facility] [place] [address] * EKG 12 Lead (10/30/2023 8:21 PM EDT) Ventricular rate 49 BPM MUSE SYSTEM Atrial Rate 49 BPM MUSE SYSTEM P-R Interval 230 ms MUSE SYSTEM QRS Duration 96 ms MUSE SYSTEM Q-T Interval 526 ms MUSE SYSTEM QTC Calculated (Bezet) 475 ms MUSE SYSTEM Calculated P [place] 98 degrees MUSE SYSTEM Calculated R [place] -48 degrees MUSE SYSTEM Calculated T [place] -51 degrees MUSE SYSTEM INTERPRETATION Sinus bradycardia [...] Performing Organization Address City/[facility] Co de Phone Number MUSE SYSTEM documented [...] documented as of this encounter Care Teams Sap Abap Programmer Relationship Specialty Start Date End Date Rosie Mathews MD [address] [place] [id number] PCP - General Family Medicine 11/25/17 11/23/23 documented as of this encounter
--- OUTSIDE RECORDS SUMMARY | 2024-02-06 10:56 | XMS_ITS | Encounter Summary ---
Author Organization [facility] Address [address] [place] [address] Care Team Providers Care Extrusion Press Adjuster Name Role Phone Kirsten Bateman MD Primary Care Provider [phone] Encounter Details Date Type Department Care Team (Late st Contact Info) Description 01/27/2021 Lab Requisition [facility] Pathology & Laboratory Medicine - [facility] [address] [place] [address] Outr Resulting Lab, Provider Social History Tobacco [...] Outr Resulting Lab MICROBIOLOGY - GENERAL ORDERABLES [facility] [address] [place] [address] * COVID-19 TESTING (01/26/2021 16:45 EDT) COVID-19 rt-PCR Result Negative Negative 01/28/2021 13:31 EDT [facility] Comment: This test has not [...] developed and its performance characteristics determined by [facility]. It has not been cleared or approved [...] testing. This test is based on the [facility] COVID-19 Emergency Use Authorization (EUA) assay, with minor modification as defined by the FDA Performed on the TalentSkyo 7 Pro RT-PCR System. Performing Lab [facility] Lab 01/28/2021 13:31 EDT [facility] Swab 01/26/2021 16:4 5 EDT 01/27/2021 15:46 EDT Provider Outr Resulting Lab MICROBIOLOGY - GENERAL ORDERABLES [facility] [address] [place] [address] documented in this encounter Visit Diagnoses Not on filedocumented in this encounter Care Teams Extrusion Press Adjuster Relationship Specialty Start Date End Date Kirsten Bateman MD [address] [place] [address] PCP - General 01/13/10 documented as of this encounter
--- OUTSIDE RECORDS SUMMARY | 2024-02-10 10:22 | XMS_ITS | Encounter Summary ---
Author Organization [facility] Address [facility] [place] [address] Care Team Providers Care Pyridine Operator Name Role Phone Masood Pierson MD Primary Care Provider [phone] Reason for Visit * Reason Comments Establish Care Coronary Artery Disease Encounter Details Date Type Department Care Team (Latest Contact Info) Description 11/24/2023 10:40 AM EDT Office Visit Cardiology at [address] [place] [address] Izaiah Meyer MD [facility] [place] [address] ASCVD (arteriosclerotic cardiovascular disease); Cardiomyopathy, ischemic; Ascending aorta dilatation; Hyperpiesia Social History Tobacco Use Types Packs/Day Years Used Date Smoking Tobacco: Former Smokeless Tobacco: Never Alcohol Use Standard Drinks/Week Comments Not Currently 0 (1 standard drink = 0.6 oz pur e alcohol) [facility] Utilities Answer Date Recorded In the past [...] place to sleep or slept in a prison (including now)? No 11/01/2023 DH IPV Inpatient [...] Prox 60 Mid 80 3.5 x 15 [place] 3.5 x 15 Andrea RCA Mid AoCTO. [...] HPI: 83 f [facility] cardiovascular care. She has a recent history [...] rehab. [facility] SBP very well controlled at home [...] 11:20 AM EDT Office Visit Cardiology at [address] [place] [phone] Izaiah Meyer MD [facility] [place] [address] documented as of this encounter Visit Diagnoses Diagnosis ASCVD (arteriosclerotic cardiovascular disease) Unspecified cardiovascular disease Cardiomyopathy, ischemic Other specified forms of chronic ischemic heart disease Ascending aorta dilatation Thoracic aortic ectasia Hyperpiesia Unspecified essential hypertension documented in this encounter Care Teams Pyridine Operator Relationship Specialty Start Date End Date Masood Pierson MD [address] [place] [address] PCP - General Family Medicine 11/24/23 documented as of this encounter
--- OUTSIDE RECORDS SUMMARY | 2024-02-10 10:22 | XMS_ITS | Encounter Summary ---
Author Organization [facility] Address [facility] [place] [address] Care Team Providers Care Sawdust Drier Name Role Phone Rosie Mathews MD Primary Care Provider [phone] Reason for Visit * Reason Onset Date Comments Referral 11/03/2023 Coronary Artery Disease 11/03/2023 Encounter Details Date Type Department Care Team (Late st Contact Info) Description 11/03/2023 Telephone Cardiology at [address] [address] Andressa Machado, verification specialist; Coronary Artery Disease Social History Tobacco Use Types Packs/Day Years Used Date Smoking Tobacco: Former Smokeless Tobacco: Never Alcohol Use Standard Drinks/Week Comments Not Currently 0 (1 standard drink = 0.6 oz pur e alcohol) [facility] Utilities Answer Date Recorded In the past 12 months has e [employer], gas, oil, or water [employer] threatened to shut off services in [...] in a chcf (including now)? No 11/01/2023 IPV Inpatient Questions [...] were not included. [facility] [address] [place] [address] Lyla was referred to this Cardiology clinic in [place] for post cardiac cath 10/31 for STEMI follow up as part of her discharge plan from [facility] documented in this encounter Plan of Treatment Upcoming Encounters Date Type Department Care Team (Late st Contact Info) Description 03/29/2024 11:20 AM EDT Office Visit Cardiology at [address] [place] [address] Izaiah Meyer MD [facility] [place] [address] documented as of this encounter Visit Diagnoses Not on filedocumented in this encounter Care Teams Sawdust Drier Relationship Specialty Start Date End Date Rosie Mathews MD [address] [place] [address] PCP - General Family Medicine 11/25/17 11/23/23 documented as of this encounter
--- OUTSIDE RECORDS SUMMARY | 2024-02-10 10:22 | XMS_ITS | Encounter Summary ---
Author Organization [facility] Address [facility] [place] [address] Care Team Providers Care Messenger Office Name Role Phone Masood Pierson MD Primary Care Provider [phone] Encounter Details Date Type Department Care Team (Late st Contact Info) Description 12/16/2023 Telephone Cardiology at [address] [place] [address] Izaiah Meyer MD [facility] [place] [address] Social History Tobacco Use Types Packs/Day Years Used Date Smoking Tobacco: Former Smokeless Tobacco: Never Alcohol Use Standard Drinks/Week Comments Not Currently 0 (1 standard drink = 0.6 oz pur e alcohol) [facility] Utilities Answer Date Recorded In the past 12 months has [employer], gas, oil, or water [employer] threatened to shut off services in your [...] place to sleep or slept in a penitentiary (including now)? No 11/01/2023 DH IPV Inpatient [...] RN - 12/16/2023 11:25 AM EDT Denise, [facility] Cardiac carbon accountant, called to report that at today's session [...] 11:20 AM EDT Office Visit Cardiology at [address] [place] [address] Izaiah Meyer MD [facility] [place] [address] documented as of this encounter Visit Diagnoses Not on filedocumented in this encounter Care Teams Messenger Office Relationship Specialty Start Date End Date Masood Pierson MD [address] [place] [address] PCP - General Family Medicine 11/24/23 documented as of this encounter
--- OUTSIDE RECORDS SUMMARY | 2024-02-10 10:22 | XMS_ITS | Encounter Summary ---
Author Organization [facility] Address [facility] [place] [address] Care Team Providers Care Sap Specialist Name Role Phone Rosie Mathews MD Primary Care Provider [phone] Encounter Details Date Type Department Care Team (Late st Contact Info) Description 11/18/2023 External Results Administration [facility] [place] [address] Social History Tobacco Use Types Packs/Day Years Used Date Smoking Tobacco: Former Smokeless Tobacco: Never Alcohol Use Standard Drinks/Week Comments Not Currently 0 (1 standard drink = 0.6 oz pur e alcohol) [facility] Utilities Answer Date Recorded In [...] 11:20 AM EDT Office Visit Cardiology at [address] [phone] Izaiah Meyer MD [facility] [place] [address] documented as of this encounter Procedures Procedure Name Priority Date/Time Associated Diagnosis Comments ECG SCAN Routine 11/18/2023 4:50 PM EDT documented in this encounter Results * Scan Doc: ECG (11/18/2023 4:50 PM EDT) Historical Provider MEDIA MGR SCAN EX T ORDR/RSLT documented in this encounter Visit Diagnoses Not on filedocumented in this encounter Care Teams Sap Specialist Relationship Specialty Start Date End Date Rosie Mathews MD [address] [place] [address] PCP - General Family Medicine 11/25/17 11/23/23 documented as of this encounter
--- OUTSIDE RECORDS SUMMARY | 2024-02-10 10:22 | XMS_ITS | Encounter Summary ---
Author Organization [facility] Address [facility] [place] [address] Care Team Providers Care Car Wiper Name Role Phone Masood Pierson MD Primary Care Provider [phone] Encounter Details Date Type Department Care Team (Latest Contact Info) Description 11/24/2023 Travel Social History Tobacco Use Types Packs/Day Years Used Date Smoking Tobacco: Former Smokeless Tobacco: Never Alcohol Use Standard Drinks/Week Comments Not Currently 0 (1 standard drink = 0.6 oz pur e alcohol) [facility] Utilities Answer Date Recorded In the [...] 11:20 AM EDT Office Visit Cardiology at [address] [address] Izaiah Meyer MD [facility] [place] [address] documented as of this encounter Visit Diagnoses Not on filedocumented in this encounter Care Teams Car Wiper Relationship Specialty Start Date End Date Masood Pierson MD [address] [place] [address] PCP - General Family Medicine 11/24/23 documented as of this encounter
--- OUTSIDE RECORDS SUMMARY | 2024-02-10 10:22 | XMS_ITS | Clinical Summary ---
Author Organization [facility] Address [facility] [place] [address] Care Team Providers Care Control Electrician Name Role Phone Masood Pierson MD Primary Care Provider [phone] Allergies Active Allergy Reactions Criticality Noted Date [...] Prox 60 Mid 80 3.5 x 15 [place] 3.5 x 15 [place] RCA Mid AoCTO. Collats from Cx 4.0 x 38 [place] NB: RCA initially intervened; Cx 2 days [...] Care Team Description 12/16/2023 Telephone Cardiology at [address] [address] Izaiah Meyer MD 11/24/2023 10:40 AM EDT Office Visit Cardiology at [address] [address] Izaiah Meyer MD ASCVD (arteriosclerotic cardiovascular disease); Cardiomyopathy, ischemic; Ascending aorta dilatation; Hyperpiesia 11/24/2023 Travel 11/18/2023 Telephone Cardiology at [address] [address] Cheryl Guzman MD 11/18/2023 [place] [address] from Last 3 Months Social History Tobacco Use Types Packs/Day Years Used Date Smoking Tobacco: Former Smokeless Tobacco: Never Alcohol Use Standard Drinks/Week Comments Not Currently 0 (1 standard drink = 0.6 oz pur e alcohol) [facility] Utilities Answer Date Recorded In the past 12 months has th e [employer], gas, oil, or water [employer] threatened to shut off services in your [...] AM EDT Office Visit Cardiology at [address] [place] [phone] Izaiah Meyer MD [facility] [place] [address] Health Maintenance Due Date Last Done Comments [...] (Bezet) 444 ms MUSE SYSTEM Calculated P [place] 79 degrees MUSE SYSTEM Calculated R [place] -39 degrees MUSE SYSTEM Calculated T [place] -49 degrees MUSE SYSTEM INTERPRETATION Sinus bradycardia [...] Anterolateral leads Confirmed by MD Meyer Daniel ([id number]) on 12/10/2023 2:50:44 PM MUSE SYSTEM 11/24/2023 [...] Status decision made by: Patient Care Teams Control Electrician Relationship Specialty Start Date End Date Masood Pierson MD [address] [place] [address] PCP - General Family Medicine 11/24/23
--- OUTSIDE RECORDS SUMMARY | 2024-02-10 10:22 | XMS_ITS | Encounter Summary ---
Author Organization [facility] Address [facility] [place] [address] Care Team Providers Care Rn Review Name Role Phone Rosie Mathews MD Primary Care Provider Encounter Details Date Type Department Care Team (Late st Contact Info) Description 11/18/2023 Telephone Cardiology at [address] [phone] Cheryl Guzman MD [facility] [place] [address] Social History Tobacco Use Types Packs/Day Years Used Date Smoking Tobacco: Former Smokeless Tobacco: Never Alcohol Use Standard Drinks/Week Comments Not Currently 0 (1 standard drink = 0.6 oz pur e alcohol) [facility] Utilities Answer Date Recorded In the past 12 months has e electric, gas, oil, or water [employer] threatened to shut off services in your [...] place to sleep or slept in a retirement (including now)? No 11/01/2023 IPV Inpatient Questions [...] Radu Giron MD Patient Location: ED, [facility], [place] Past Medical History: HTN HLD NSTEMI ([facility] 11/02, status-post revasc) Presenting Symptoms per OSH: Lyla Goodrich is a 83 y.o. woman who presents to [facility] [place] with an episode of chest pain. Recent admission to [facility] with NSTEMI status-post PCI to the prox-RCA [...] today's values. RCA was described as a NEWSP[employer]ER REPORTER. Recommend admission for observation to assess for [...] AM EDT Office Visit Cardiology at [address] [phone] Izaiah Meyer MD [facility] [place] [address] documented as of this encounter Visit Diagnoses Not on filedocumented in this encounter Care Teams Rn Review Relationship Specialty Start Date End Date Rosie Mathews MD [address] [place] [address] PCP - General Family Medicine 11/25/17 11/23/23 documented as of this encounter
--- OUTSIDE RECORDS SUMMARY | 2024-02-10 10:23 | XMS_ITS | Encounter Summary ---
Author Organization [facility] Address [facility] [place] [address] Care Team Providers Care Neurobiologist Name Role Phone Rosie Mathews MD Primary Care Provider [phone] Reason for Referral * Consultation (Routine) - Authorized Specialty Diagnoses / Procedures Referred By Contac t Referred To Contact Cardiology Diagnoses 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 Rosa Hugo MD [facility] [place] [address] Cardiac Rehab, [address] [place] [address] Referral ID Status Reason Start Date Expiration Date Visits Requested Visits Authorized [id number] Authorized Consult, Test & Treat Non PCP 11/03/2023 05/01/2024 36 36 * Home Health Care (Routine) - Authorized Specialty Diagnoses / Procedures Referred By Contac t Referred To Contact Diagnoses Unstable angina Rosa Hugo MD [facility] [place] [address] Referral ID Status Reason Start Date Expiration Date Visits Requested Visits Authorized [id number] Authorized Consult, Test & Treat 11/03/2023 05/01/2024 999 999 Reason for Visit * Auth/Cert (Routine) Specialty Diagnoses / Procedures Referred By John hunt Referred To Contact Diagnoses Unstable angina Chest pain NSTEMI Procedures CARDIAC CATHETERIZATION Rosa Deewy MD [facility] [place] [address] [facility] Referral ID Status Reason Start Date Expiration Date Visits Re quested Visits Authorized [id number] 1 1 Encounter Details Date Type Department Care Team (Latest Contact Info) Description 10/30/2023 5:11 PM EDT - 11/03/2023 5:13 PM EDT Hospital Encounter Heart and Vascular Unit Level 4 [place] [address] Rosa Dewey MD [facility] [place] [address] Jean Laboy MD [facility] [place] [address] Rosa Hugo MD [facility] [place] [address] 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; Tachycardia; Unstable angina Discharge Disposition: Home Social History Tobacco Use Types Packs/Day Years Used Date Smoking Tobacco: Former Smokeless Tobacco: Never Alcohol Use Standard Drinks/Week Comments Not Currently 0 (1 standard drink = 0.6 oz pur e alcohol) [facility] Utilities Answer Date Recorded In the past 12 months has e [employer], gas, oil, or water [employer] threatened to shut off services in your [...] place to sleep or slept in a long term (including now)? No 11/01/2023 DH IPV Inpatient [...] for hypertension and hyperlipidemia who presented to [facility] as a transfer from [facility] as a possible STEMI alert with acute onset chest pain. The patient reports that her symptoms initially began on Tuesday when she was walking to [employer] and experienced bilateral arm heaviness while walking with no other symptoms. Then, this afternoon shereports developing bilateral achy shoulder pain and nonradiating substernal left-sided chest pressure that was 7/10 in severity after coming [place] from [facility]. The patient denies any associated fevers, chills, [...] on repeat, her TRU resolved. Cardiology at [facility] was consulted for transfer; the patient was loaded with aspirin 324 mg and ticagrelor 180 mg, started on a heparin drip, and given nitroglycerin with improvement in chest pain. Upon arrival to [facility], the patient was taken directly to the Federal Judicial Law Clerk. Two lesions were discovered: one in the prox RCA (felt to almost be a SOCIAL WORKER AIDE but they were able to wire, balloon, [...] dose administered prior to arrival in the terrazzo laborer. Recommended anti-platelet/anti-thrombotic regimen: Continue aspirin 81 [...] and low lung volumes. Findings similar to depilatory painter radiograph from CT 10/30/2023. Pending Studies and [...] 10:40 AM Izaiah Meyer MD Cardiology at [place] Arrive at: [facility] [address] [phone] Future Orders Complete By Expires Referral to Cardiac Rehab [VGT175 Custom] As directed Process Instructions: If no progress note charted, please enter Clinical details in comments. Scheduling Instructions: Questions: My question or request is: STEMI. Cardiac rehab at [facility]. Referral to Home Health [REF34 Custom] As directed Process Instructions: If no progress note charted, please enter Clinical details in comments. Scheduling Instructions: Comments: Please evaluate Adin Santos for admission to Home Health. [address] [facility] [phone] (home) Date of : 1940 Inpatient DOCUMENTATION FOR VNA SERVICES (INCLUDING THOSE PATIENTS WITH MEDICARE COVERAGE REQUIRING HOME VNA SERVICES AND/OR HOSPICE SERVICES) PATIENT'S LOCATION: Adin Santos [address] [facility] [phone] (home) Cell: Telephone Information: Continuous Improvement Coordinator's Name: self In discussion with the attending physician, it is certified that this patient is under their care and that they, or a Nurse Practitioner, Clinical Nurse specialist or Physician Therapeutic Recreation Director who is working directly with them, had [...] regarding health issues HOME HEALTH CARE AGENCY: [facility] [address] [place] [address] START OF CARE: within 24-48 hours of [...] Rosie Mathews MD [address] / [facility] [place] [address] . All A agencies which cover [...] Mathews MD / Dr. Masood Pierson [address] [place] [phone] 11/09/23 1:55 PM arrival for 2:10 PM appointment Wire Transfer Clerk: Izaiah Meyer MD [address] [place] [id number] , 11/24/2023 10:40 AM Your Inpatient Medical Team at [facility] Name(s) of your inpatient provider(s): Attending physician: Rosa Hugo MD Resident physicians: Emile Robles MD; Elmer Tamez MD If you have non-emergent questions, prior to your follow-up visit call: Tuesday-Tuesday between the hours of 8AM-5PM please call the Cardiology Clinic [phone] to speak with a nurse. All other hours please call the Hospital Exploitation Analyst [phone] and ask to speak to the retail sales teammate on-call. Your Primary Care Provider Rosie Mathews MD [phone] For questions regarding this document or issues relating to this hospitalization on the Medical Service, please contact your inpatient physician through the [facility] Exploitation Analyst . Issues afterhours and on weekends will be handled by the Wire Transfer Clerk staff on-call. Associated attestation - Rosa Hugo [...] MD / Dr. Masood Pierson [address] [place] [id number] 11/09/23 1:55 PM arrival for 2:10 PM appointment Wire Transfer Clerk: Izaiah Meyer MD [address] [place] [address] , 11/24/2023 10:40 AM Your Inpatient Medical Team at [facility] Name(s) of your inpatient provider(s): Attending physician: Rosa Hugo MD Resident physicians: Emile Robles MD; Elmer Tamez MD If you have non-emergent questions, prior to your follow-up visit call: Tuesday-Tuesday between the hours of 8AM-5PM please call the Cardiology Clinic [phone] to speak with a nurse. All other hours please call the Hospital Exploitation Analyst [phone] and ask to speak to the retail sales teammate on-call. Your Primary Care Provider Rosie Mathews MD [phone] documented in this encounter Medications at Time [...] for hypertension and hyperlipidemia who presented to [facility] as a transfer from [facility] [...] for hypertension and hyperlipidemia who presented to [facility] as a transfer from [facility] [...] Resident on Cardiology Service Cardiology S1 (Pager [phone]) Note written in conjunction with Claudio Perla [facility] Medical Student, MS3 Associated attestation - [...] Nirmala Webb - 11/01/2023 11:25 AM EDT Manager Of Enterprise Encounter Note Patient Name: Adin Santos : [id number] MR#: [id number] Admit Date: 10/30/2023 5:11 PM Hospital Day 2 days Narrative: Self initiated visit to patient for Spiritual support in a regular unit rounds. Assessment: Patient is in the bathroom at the time of this visit. Not a good time for Head Bellhop Captain visit. Intervention and Outcome: An attempted visit [...] for hypertension and hyperlipidemia who presented to [facility] a transfer from [facility] [...] and low lung volumes. Findings similar to depilatory painter radiograph from CT 10/30/2023. Scheduled Medications: [AUG [...] for hypertension and hyperlipidemia who presented to [facility] as a transfer from [facility] [...] Resident on Cardiology Service Cardiology S1 (Pager [phone]) Note written in conjunction with Claudio Perla [facility] Medical Student, MS3 Associated attestation - [...] for hypertension and hyperlipidemia who presented to [facility] as a transfer from [facility] as a possible STEMI alert with acute onset chest pain. Active Problems: Active Hospital Problems Diagnosis Unstable angina Resolved Hospital Problems No resolved problems to display. 24 hr events: - Cath'd yesterday with lesion in the proximal RCA (initially thought it was SOCIAL WORKER AIDE but they were ableto wire, balloon and [...] and low lung volumes. Findings similar to depilatory painter radiograph from CT 10/30/2023. TTE (05/13): Interpretation [...] for hypertension and hyperlipidemia who presented to [facility] as a transfer from [facility] [...] Resident on Cardiology Service Cardiology S1 (Pager [phone]) Note written in conjunction with Claudio Perla [facility] Medical Student, MS3 Associated attestation - [...] PCP: Rosie Mathews MD PCP phone number: [phone] Date of Admission: 10/30/2023 ( Hospital Day 0 days ) Attending:Rosa Cornejo MD ID: Adin Santos is a 83 y.o. female PMH significant for hypertension and hyperlipidemia who presented to [facility] as a transfer from [facility] as a possible STEMI alert with acute onset chest pain. The patient reports that her symptoms initially began on Tuesday when she was walking to [employer] and experienced bilateral arm heaviness while walking with no other symptoms. Then, this afternoon shereports developing bilateral achy shoulder pain and nonradiating substernal left-sided chest pressure that was 7/10 in severity after coming home from [facility]. The patient denies any associated fevers, chills, [...] on repeat, her TRU resolved. Cardiology at [facility] was consulted for transfer; the patient was loaded with aspirin 324 mg and ticagrelor 180 mg, started on a heparin drip, and given nitroglycerin with improvement in chest pain. Upon arrival to [facility], the patient was taken directly to the Federal Judicial Law Clerk. 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 Findings similar to depilatory painter radiograph from CT 10/30/2023. Assessment & Plan: Adin Santos is a 83 y.o. female PMH significant for hypertension and hyperlipidemia who presented to [facility] a transfer from [facility] [...] with HTN HLD transferred with chest from [facility]. BP 217/68, HR [address] [...] information for follow-up Home Health & Hospice, [place] [address] [place] [address] TANESHA BOYCE confirmed with [facility] that they will see the patient within 24-48 hours of discharge for start of care. Transportation: family or friend will provide Wheelchair van/Ambulance? No Functional status prior to admission: Assistive Equipment Home Environment: Others in the home: alone. Current Living Arrangements: home/apartment/condo. Accessibility Concerns:1st floor apartment in long term community; handicapped accessible. Current Functional Ability: Assistive Equipment DME used at home: cane - straight, grab bar - tub/shower, grab bar - toilet, raised toilet seat DME Needed at Discharge: N/A Patient is insured through: Primary Insurance: [employer] MA[employer]ED MEDICARE Payor: [employer] MEDICARE / Plan: [employer] MEDICARE PPO / Product Type: *No [...] in the room. Electrolytes replaced, see MAR. catheterization laboratory technician sites remained C/D/I with baseline ecchymosis unchanged. Pt complained of back pain, lidocaine patch given. Right IV infiltrated during infusion, patient is marked with sharpie, IV removed. See flowsheet for I+O's and safety rounding. Patient is able to make needs known and call capps within reach. PLAN MOVING FORWARD: Monitor Tele, control BP, monitor terrazzo laborer sites, D/C Planning INDIVIDUALIZED FALL PREVENTION [...] in an outpatient cardiac rehabilitation program at [facility] was discussed. Patient agrees to a referral [...] and above on RA. PT went to terrazzo laborer today. Left fem site oozed throughout [...] MOVING FORWARD: Monitor Tele, control BP, monitor terrazzo laborer sites, D/C Planning INDIVIDUALIZED FALL PREVENTION [...] Admitted From: Transfer from another hospital Location: [facility] Reason for Hospitalization: chest pain Covid Vaccination Status: 1st, 2nd & booster Past medical History: No past medical history on file. Hospitalizations Within the Past 30 Days: no previous admission in last 30 days Current Decision-Making Capacity: Self If AD's have not been completed the following surrogate would be surrogate decision maker per [place] surrogate decision making law. (Only good for 180 days) Any patient receiving care in [place] must abide by [place] law. The hierarchy for surrogate decision making [...] (i) The agent with financial power of commonwealth attorney or a conservator appointed in accordance [...] Arrangements: home/apartment/condo. Accessibility Concerns:1st floor apartment in long term community; handicapped accessible. In the last 12 months, was there a time when you were not able to pay the mortgage or rent on time?: No In the last 12 months, how many places have you lived?: 1 In the last 12 months, was there a time when you did not have a steady place to sleep or slept in [facility] (including now)?: No In the past [...] toilet seat Home Address confirmed as: [address] [place] [phone] Social & Family Supports: All names listed below confirmed with patient as current and correct Extended Emergency Contact Information Primary Emergency Contact: Iris Downing Address: [address] [place], [place] [address] [place] [address] Mobile Relation: Child Secondary Emergency Contact: Karen More Address: [address] [place] Relation: Child Current Care Provided by: self Provides Primary Care For: no one Caregiver if needed: child(emmanuel), adult Quality of Family relationships: involved, supportive Community Resources being provided currently: other (see comments) (receives [facility] services at home (1xweekly)) Behavioral Health [...] Insurance: N/A Prescription Coverage: Yes Preferred Pharmacy: [id number] - [place], [place] - [address] [facility] [address] [facility] [address] Status: Patient is a : No Primary Care Provider listed: Masood Pierson MD [phone] Patient/Caregiver Goals of Treatment: home when MR Potential Needs for Transition of Care: home health care Agency Referrals: Not Applicable I have met with the patient to: discuss discharge planning needs. provide the [facility], Office of Care Management letter from the Fire Extinguisher Repairer pertaining to rehab referrals. provide a letter describing our affiliations within the [facility] and educate about their right to choose where referrals are sent. provide a list of Home Health Agencies / Durable Medical Equipment vendors which serve their preferred geographic area. provided patient with [facility] Star Quality Rating handout. They have requested referrals to: [facility] [address] [place] [address] Note routed to a Metal Cutter who will communicate referrals to facilities and [...] results. PO hydralazine added for BP control. catheterization laboratory technician sites remain C/D/I, ecchymosis unchanged th roughout shift. See flowsheet for I+O's and safety rounding. Patient is able to make needs known and call capps within reach. PLAN MOVING FORWARD: Monitor Tele, control CP and BP, NPO at MD for cath, monitor terrazzo laborer sites, D/C Planning INDIVIDUALIZED FALL PREVENTION [...] 11:20 AM EDT Office Visit Cardiology at [address] [place] [address] Izaiah Meyer MD [facility] [address] Scheduled Referrals Name Type Priority Associated Diagnoses [...] 3:46 AM EDT) Neutrophil % 63.3 % [facility] Neutrophil Absolute 5.28 1.70 - 6.10 x10(3)/mc L [facility] Lymph % 15.2 % [facility] Lymphocytes Abs 1.3 0.9 - 3.2 x10(3)/ L [facility] Monocyte % 16.9 % [facility] Monocyte Abs 1.4(H) 0.3 - 0.9 x10(3)/ L [facility] Eos % 3.7 % [facility] Eosinophils Abs 0.3 0.0 - 0.4 x10(3)/[facility] Basophil % 0.5 % [facility] Baso Absolute 0.0 0.0 - 0.1 x10(3)/ L [facility] Immature Gran % 0.40 % [facility] Comment: Immature granulocytes(IG's)percentage and absolute count will include metamyelocytes, myelocytes, and promyelocytes. Blood smears from CBCs yielding IG's will be scanned manually for concordance. If this scan disagrees with the automated IG or if promyelocytes are noted, a manual differential will be performed. Immature Gran Absolute 0.03 0.00 - 0.04 x10(3)/mc L [facility] Blood 11/03/2023 3:46 AM EDT 11/03/2023 4:11 AM EDT Narrative Resulting Agency Comment Spec In Lab Qamar Gallardo MD HEMATOLOGY ORDERABLE S [facility] [place] [address] * (ABNORMAL) Hemogram (11/03/2023 3:46 AM EDT) White Blood Cell 8.3 4.0 - 9.5 x10(3)/mc L [facility] Red Blood Cell 3.77(L) 4.00 - 5.21 x10(6)/mc L [facility] Hemoglobin 13.1 11.7 - 15.5 g/dL [facility] Hematocrit 38.0 35.7 - 45.8 % [facility] Mean Cell Volume 100.8(H) 82.6 - 94.4 fL [facility] Mean Cell Hemoglobin 34.7(H) 27.1 - 32.0 pg [facility] Mean Cell Hemoglobin Concentration 34.5 31.7 - 35.0 g/dL [facility] Platelet 181 145 - 357 x10(3)/[facility] RDW Standard Deviation 54.7(H) 37.0 - 46.0 [facility] RDW coefficient of variation 14.6(H) 11.5 - 14.1 % [facility] Mean Platelet Volume 11.2 7.6 - 12.9 [facility] NRBC% auto 0.0 % [facility] NRBC Absolute 0.000 0.000 - 0.000 x10(3)/ L [facility] Blood 11/03/2023 3:46 AM EDT 11/03/2023 4:11 AM EDT Narrative Resulting Agency Comment Spec In Lab Qamar Gallardo MD HEMATOLOGY ORDERABLE S [facility] [place] [address] * Phosphorus (11/03/2023 3:46 AM EDT) Phosphorus 3.2 2.5 - 4.5 mg/dL [facility] Comment:result rechecked-KS Blood 11/03/2023 3:46 AM EDT 11/03/2023 4:11 AM EDT Narrative Resulting Agency Comment Spec In Lab Rosa Cornejo MD CHEMISTRY ORDERABLE S [facility] [place] [address] * Magnesium (11/03/2023 3:46 AM EDT) Magnesium 0.90 0.69 - 1.07 mmol/L [facility] Blood 11/03/2023 3:46 AM EDT 11/03/2023 4:11 AM EDT Narrative Resulting Agency Comment Spec In Lab Rosa Cornejo MD CHEMISTRY ORDERABLE S Performing Organization Address City/[facility]/ZIP Co de Phone Number [facility] [place] [address] * (ABNORMAL) Basic Metabolic Panel (non-fasting) (11/03/2023 3:46 AM EDT) Glucose 105 65 - 199 mg/dL [facility] Comment:Diabetes: >=200 mg/d L plus symptoms Blood Urea Nitrogen 13 8 - 18 mg/dL [facility] Creatinine 0.83 0.70 - 1.20 mg/dL [facility] Sodium 139 135 - 145 mmol/L [facility] Potassium 4.0 3.5 - 5.0 mmol/L [facility] Comment: Please note: ??Patients with WBC >100,000 may have falsely elevated Potassium levels. ??For accurate Potassium quantification in these patients send serum separator tube (gold top) for subsequent determinations. ??Contact the Clinical Chemistry Laboratory if there are any questions. Chloride 108(H) 98 - 107 mmol/L [facility] Carbon Dioxide 19(L) 22 - 31 mmol/L [facility] Anion Gap 12 5 - 15 mmol/L [facility] Calcium 8.2(L) 8.5 - 10.5 mg/dL [facility] Est Glomerular Filtration Rate 69 >=60 mL/min/1. 73 m?? [facility] Comment: This patient's estimated [...] Lab Rosa Cornejo MD CHEMISTRY ORDERABLE S [facility] [place] [phone] * EKG 12 Lead (11/02/2023 12:44 PM EDT) Ventricular rate 83 BPM MUSE SYSTEM Atrial Rate 83 BPM MUSE SYSTEM P-R Interval 216 ms MUSE SYSTEM QRS Duration 90 ms MUSE SYSTEM Q-T Interval 384 ms MUSE SYSTEM QTC Calculated (Bezet) 451 ms MUSE SYSTEM Calculated P [place] 92 degrees MUSE SYSTEM Calculated R [place] -51 degrees MUSE SYSTEM Calculated T [place] -33 degrees MUSE SYSTEM INTERPRETATION Sinus rhythm [...] RBC, Urine <1 0 - 4 /HPF [facility] Comment: Interpret results with caution, microscopic results are from suboptimal specimen volume WBC, Urine 16(H) 0 - 5 /HPF [facility] Comment: Interpret results with caution, microscopic results are from suboptimal specimen volume Bacteria, Urine Many(A) None /HPF [facility] Squamous Epithelial Cells Raw Data, Urine 10(H) <=4 /HPF [facility] Hyaline Casts, Urine 2 0 - 2 /LPF [facility] Comment: Interpret results with caution, microscopic results are from suboptimal specimen volume Clean Catch Urine 11/02/2023 11:40 AM EDT 11/02/2023 12:05 PM EDT Narrative Resulting Agency Comment Spec In Lab Elmer Tamez MD URINE ORDERABLES Performing Organization Address City/[facility] Co de Phone Number [facility] [place] [address] * (ABNORMAL) Urinalysis with reflex Culture (11/02/2023 11:40 AM EDT) Glucose, Urine Dipstick Negative Negative mg/dL [facility] Protein, Urine Dipstick 30(A) Negative mg/dL [facility] Bilirubin, Urine Dipstick Negative Negative mg/dL [facility] Comment: Clinical correlation required for positive Urine Bilirubin results as false positive may occur with some drugs and drug related products. If a false positive is suspected a serum total bilirubin should be considered if clinically indicated. Urobilinogen, Urine Dipstick Normal Normal mg/dL [facility] pH, Urn (dipstick) 5.5 5.0 - 8.0 [facility] Blood, Urine Dipstick Negative Negative mg/dL [facility] Ketone, Urine Dipstick Trace(A) Negative mg/dL [facility] Nitrite, Urine Dipstick Positive(A) Negative [facility] Leukocytes, Urine Dipstick Small(A) Negative [facility] Appearance, Urine Dipstick Cloudy(A) Clear [facility] Specific [place] Urine Automated >=1.030(A) 1.005 - 1.030 [facility] Color, Urine Dipstick Dark Yellow Yellow [facility] Reflex to Culture Yes [facility] Clean Catch Urine 11/02/2023 11:40 AM EDT 11/02/2023 12:04 PM EDT Narrative Resulting Agency Comment Spec In Lab Rosa Hugo MD URINE ORDERABLES Performing Organization Address City/State/[facility] Co de Phone Number [facility] [place] [address] * Respiratory Panel PCR (11/02/2023 10:15 AM EDT) Respiratory Panel Source MANUFACTURER AGENT Swab [facility] Respiratory Panel PCR Negative Negative [facility] Comment: Respiratory Panels are performed on the [employer], using multiplexed PCR nucleic acid detection. ??Negative results do not preclude respiratory infection and should not be used as the sole basis for diagnosis, treatment or other management decisions. Adenovirus Not Detected Not Detected [facility] Coronavirus HKU1 Not Detected Not Detected [facility] Coronavirus NL63 Not Detected Not Detected [facility] Coronavirus 229E Not Detected Not Detected [facility] Coronavirus OC43 Not Detected Not Detected [facility] SARS-CoV-2 Not Detected Not Detected [facility] Comment: Testing for SARS-CoV-2 (Severe acute respiratory syndrome coronavirus 2) to aid in the diagnosis of COVID-19 is performed using the [employer] Respiratory Panel 2.1 ([employer]) as authorized by the FDA issued Emergency Use Authorization (EUA). This panel also tests for multiple other viral and bacterial pathogens. This assay is intended for In-vitro Diagnostic (IVD) use with nasopharyngeal swabs in viral transport media. The assay is performed based on the instructions for use and additional guidance provided by the FDA. Testing is performed in laboratories within the [facility], each of which is certified under the [...] fact sheets at the following FDA website: https://www.fda.gov/medical-devices/shigcnflggm-talwtqb-8918-rfopz-47-jjxlsmgjr- use-a yhptgcooqsjqm-vqfprbe-gbarogr/uquaw-igdysgqobpo-wkmf Human Metapneumovirus Not Detected Not Detected [facility] Human Rhinovirus/Enterov irus Not Detected Not Detected [facility] Influenza A Not Detected Not Detected [facility] Influenza B Not Detected Not Detected [facility] Parainfluenza 1 Not Detected Not Detected [facility] Parainfluenza 2 Not Detected Not Detected [facility] Parainfluenza 3 Not Detected Not Detected [facility] Parainfluenza 4 Not Detected Not Detected [facility] Respiratory Syncytial Virus Not Detected Not Detected [facility] Chlamydophila pneumoniae Not Detected Not Detected [facility] Mycoplasma pneumoniae Not Detected Not Detected [facility] Nasopharyngeal Swab 11/02/19 10:15 AM EDT 11/02/2023 10:49 AM EDT Narrative Resulting Agency Comment Spec In Lab Rosa Hugo MD MICROBIOLOGY - GEN ERAL ORDERABLES [facility] [place] [address] * XR Chest One View (11/02/2023 2:51 AM EDT) WORKSTATION ID [id number] RAD Anatomical Region Laterality Modality Chest N/A [...] who have questions please contact the health rn care transition that requested your imaging first. ? Electronically signed by: Omaira Tran MD, [facility] ([phone]), at 11/02/2023 4:56 AM Narrative 11/02/2023 4:56 [...] patients who have questions please contactthe health rn care transition that requested your imaging first. Electronically signed by: Omaira Tran MD, [facility]([phone]), at 11/02/2023 4:56 AM Rosa Hugo MD IMG DX ORDERABLES * (ABNORMAL) Differential, Automated (11/02/2023 12:35 AM EDT) Neutrophil % 76.5 % [facility] Neutrophil Absolute 7.69(H) 1.70 - 6.10 x10(3)/mc L [facility] Lymph % 8.3 % [facility] Lymphocytes Abs 0.8(L) 0.9 - 3.2 x10(3)/mc L [facility] Monocyte % 12.9 % [facility] Monocyte Abs 1.3(H) 0.3 - 0.9 x10(3)/mc L [facility] Eos % 1.4 % [facility] Eosinophils Abs 0.1 0.0 - 0.4 x10(3)/mc L [facility] Basophil % 0.4 % [facility] Baso Absolute 0.0 0.0 - 0.1 x10(3)/mc L [facility] Immature Gran % 0.50 % [facility] Comment: Immature granulocytes(IG's)percentage and absolute count will include metamyelocytes, myelocytes, and promyelocytes. Blood smears from CBCs yielding IG's will be scanned manually for concordance. If this scan disagrees with the automated IG or if promyelocytes are noted, a manual differential will be performed. Immature Gran Absolute 0.05(H) 0.00 - 0.04 x10(3)/mc L [facility] Blood 11/02/2023 12:3 5 AM EDT 11/02/2023 12:43 AM EDT Narrative Resulting Agency Comment Spec In Lab Qamar Gallardo MD HEMATOLOGY ORDERABLE S [facility] [place] [address] * (ABNORMAL) Hemogram (11/02/2023 12:35 AM EDT) White Blood Cell 10.0(H) 4.0 - 9.5 x10(3)/mc L [facility] Red Blood Cell 4.06 4.00 - 5.21 x10(6)/mc L [facility] Hemoglobin 13.8 11.7 - 15.5 g/dL [facility] Hematocrit 39.8 35.7 - 45.8 % [facility] Mean Cell Volume 98.0(H) 82.6 - 94.4 fL [facility] Mean Cell Hemoglobin 34.0(H) 27.1 - 32.0 pg [facility] Mean Cell Hemoglobin Concentration 34.7 31.7 - 35.0 g/dL [facility] Platelet 198 145 - 357 x10(3)/mc L [facility] RDW Standard Deviation 52.1(H) 37.0 - 46.0 fL [facility] RDW coefficient of variation 14.3(H) 11.5 - 14.1 % [facility] Mean Platelet Volume 11.4 7.6 - 12.9 [facility] NRBC% auto 0.0 % [facility] NRBC Absolute 0.000 0.000 - 0.000 x10(3)/ L [facility] Blood 11/02/2023 12:3 5 AM EDT 11/02/2023 12:43 AM EDT Narrative Resulting Agency Comment Spec In Lab Qamar Gallardo MD HEMATOLOGY ORDERABLE S [facility] [place] [address] * (ABNORMAL) Phosphorus (11/02/2023 12:35 AM EDT) Phosphorus 1.6(L) 2.5 - 4.5 mg/dL [facility] Blood 11/02/2023 12:3 5 AM EDT 11/02/2023 12:43 AM EDT Narrative Resulting Agency Comment Spec In Lab Rosa Cornejo MD CHEMISTRY ORDERABLE S [facility] [place] [address] * Magnesium (11/02/2023 12:35 AM EDT) Pathologist [facility] Magnesium 0.87 0.69 - 1.07 mmol/L [facility] Blood 11/02/2023 12:3 5 AM EDT 11/02/2023 12:43 AM EDT Narrative Resulting Agency Comment Spec In Lab Rosa Cornejo MD CHEMISTRY ORDERABLE S Performing Organization Address City/[facility]/ZIP Co de Phone Number [facility] [place] [address] * Basic Metabolic Panel (non-fasting) (11/02/2023 12:35 AM EDT) Glucose 125 65 - 199 mg/dL [facility] Comment:Diabetes: >=200 mg/d L plus symptoms Blood Urea Nitrogen 9 8 - 18 mg/dL [facility] Creatinine 0.83 0.70 - 1.20 mg/dL [facility] Sodium 136 135 - 145 mmol/L [facility] Potassium 3.6 3.5 - 5.0 mmol/L [facility] Comment: Please note: ??Patients with WBC >100,000 may have falsely elevated Potassium levels. ??For accurate Potassium quantification in these patients send serum separator tube (gold top) for subsequent determinations. ??Contact the Clinical Chemistry Laboratory if there are any questions. Chloride 102 98 - 107 mmol/L [facility] Carbon Dioxide 25 22 - 31 mmol/L [facility] Anion Gap 9 5 - 15 mmol/L [facility] Calcium 9.0 8.5 - 10.5 mg/dL [facility] Est Glomerular Filtration Rate 69 >=60 mL/min/1. 73 m?? [facility] Comment: This patient's estimated [...] Lab Rosa Cornejo MD CHEMISTRY ORDERABLE S [facility] [place] [address] * Blood culture (11/02/2023 12:35 AM EDT) Blood Culture No growth at 5 days. [facility] Blood 11/02/2023 12:3 5 AM EDT 11/02/2023 1:55 AM EDT Comment:#2 site ukn Narrative Resulting Agency Comment Spec In Lab Rosa Hugo MD MICROBIOLOGY - BLO OD ORDERABLES [facility] [place] [address] * Blood culture (11/02/2023 12:15 AM EDT) Blood Culture No growth at 5 days. [facility] Blood 11/02/2023 12:1 5 AM EDT 11/02/2023 1:54 AM EDT Comment:#1site unk Narrative Resulting Agency Comment Spec In Lab Rosa Hugo MD MICROBIOLOGY - BLO OD ORDERABLES Performing Organization Address City/[facility]/ZIP Co de Phone Number [facility] [place] [address] * EKG 12 Lead (11/01/2023 10:10 PM EDT) Ventricular rate 139 BPM MUSE SYSTEM Atrial Rate 139 BPM MUSE SYSTEM P-R Interval 168 ms MUSE SYSTEM QRS Duration 84 ms MUSE SYSTEM Q-T Interval 286 ms MUSE SYSTEM QTC Calculated (Bezet) 435 ms MUSE SYSTEM Calculated R [place] -59 degrees MUSE SYSTEM Calculated T [place] -27 degrees MUSE SYSTEM INTERPRETATION Mid-RP tachycardia, consider sinus tachycardia or SVT Left axis deviation Moderate voltage criteria for LVH, may be normal variant ( R in aVL , [place] product ) Inferior infarct (cited on or before 01-NOV-2023) Anterolateral infarct (cited on or before 01-NOV-2023) Abnormal ECG When compared with ECG of 01-NOV-2023 15:22, Vent. rate Although rate has increased Serial changes of Anterior infarct Present I personally reviewed the tracing and edited the fellows interpretation Confirmed by fellow MD Andrés, Enriqueta ([id number]) on 11/04/2023 7:57:50 AM Confirmed by MD Gerardo, Shameka ([id number]) on 11/04/2023 4:32:03 PM MUSE SYSTEM 11/01/2023 10:1 0 PM EDT 11/04/2023 4:32 PM EDT Rosa Cornejo MD ECG ORDERABLES Performing Organization Address City/[facility]/ZIP Co de Phone Number MUSE SYSTEM * (ABNORMAL) Hemogram (11/01/2023 10:06 PM EDT) White Blood Cell 10.4(H) 4.0 - 9.5 x10(3)/ L [facility] Red Blood Cell 4.11 4.00 - 5.21 x10(6)/ L [facility] Hemoglobin 14.0 11.7 - 15.5 g/dL [facility] Hematocrit 41.1 35.7 - 45.8 % [facility] Mean Cell Volume 100.0(H) 82.6 - 94.4 fL [facility] Mean Cell Hemoglobin 34.1(H) 27.1 - 32.0 pg [facility] Mean Cell Hemoglobin Concentration 34.1 31.7 - 35.0 g/dL [facility] Platelet 197 145 - 357 x10(3)/[facility] RDW Standard Deviation 54.0(H) 37.0 - 46.0 fL [facility] RDW coefficient of variation 14.6(H) 11.5 - 14.1 % [facility] Mean Platelet Volume 11.2 7.6 - 12.9 fL [facility] NRBC% auto 0.0 % [facility] NRBC Absolute 0.000 0.000 - 0.000 x10(3)/[facility] Blood 11/01/2023 10:0 6 PM EDT 11/01/2023 10:22 PM EDT Narrative Resulting Agency Comment Spec In Lab Rosa Hugo MD HEMATOLOGY ORDERAB LES [facility] [place] [address] * POCT Glucose (11/01/2023 5:59 PM EDT) Glucose, POC 104 65 - 199 mg/dL [facility] Comment: Supplemental ranges: <140 mg/dL before meals <180 mg/dL all other times of the day Blood 11/01/2023 5:59 PM EDT 11/01/2023 5:59 PM EDT Rosa Hugo MD POINT OF CARE TEST ORDERABLES [facility] [place] [address] * POCT Glucose (11/01/2023 5:35 PM EDT) Glucose, POC 85 65 - 199 mg/dL [facility] Comment: Supplemental ranges: <140 mg/dL before meals <180 mg/dL all other times of the day Blood 11/01/2023 5:35 PM EDT 11/01/2023 5:35 PM EDT Rosa Hugo MD POINT OF CARE TEST ORDERABLES Performing Organization Address City/[facility] Co de Phone Number [facility] [place] [address] * EKG 12 Lead (11/01/2023 3:22 PM EDT) Ventricular rate 59 BPM MUSE SYSTEM Atrial Rate 59 BPM MUSE SYSTEM P-R Interval 220 ms MUSE SYSTEM QRS Duration 94 ms MUSE SYSTEM Q-T Interval 428 ms MUSE SYSTEM QTC Calculated (Bezet) 423 ms MUSE SYSTEM Calculated P [place] 76 degrees MUSE SYSTEM Calculated R [place] -50 degrees MUSE SYSTEM Calculated T [place] -59 degrees MUSE SYSTEM INTERPRETATION Sinus bradycardia [...] Narrative 11/02/2023 4:57 PM EDT ?[facility] ? Cardiac Catheterization/Intervention Report ? Patient Name: Joleen, Adin Catherine. ? Procedure Date: 11/01/2023 ? A #: [id number] ? Primary Physician: Rosa Dewey I ? Case #: [id number] ? File Name: [id number] ? Catheterization Order Number: [id number] ? [facility] ? Final Report [place], [place] ? Patient Name: ? Adin Townsendjosue ?ID#: ?[id number] ? : ?1940 ? Procedure Date: ? [...] procedure was Urgent. The indication for ?the terrazzo laborer visit is ACS greater than 24 [...] ??A premounted ? 3.50 x 15 mm [place] (RADHA) was deployed with a maximum ? [...] ? A premounted 3.50 x 15 mm [place] (RADHA) was deployed ? with a maximum [...] dose administered prior to arrival in the terrazzo laborer. ?Recommended anti-platelet/anti-thrombotic regimen: ?Continue aspirin 81 mg daily for indefinitely. ?Continue clopidogrel 75 mg daily for 12 months then stop. ?These recommendations are made at the time of the intervention. Patient ?and provider preferences or a changing clinical situation may require ?modification of this regimen. Consult [facility] for ?questions. ?The 1 year [...] Note Otto, Rosa I, MD - 12/12/2023 [facility] Cardiac Catheterization/Intervention Report Patient Name: Adin Santos Procedure Date: 11/01/2023 A #: [id number] Primary Physician: Rosa Dewey I Case #: [id number] File Name: [id number] Catheterization Order Number: [id number] [facility] FinalReport [place], [place] Patient Name: Adin Santos ID#:[id number] :1940 Procedure Date: November 01, 2023 Case [...] diagnostic procedure was Urgent. The indicationfor the terrazzo laborer visit is ACS greater than 24 [...] 14 atmospheres. Apremounted 3.50 x 15 mm [place] (RADHA) was deployed with amaximum inflation pressure [...] The lesion was predilated with a 3.00mm [id number] MM balloon with a maximum inflation pressure of 14atmospheres. A premounted 3.50 x 15 mm [place] (RADHA) wasdeployed with a maximum inflation pressure [...] dose administered prior to arrival in the terrazzo laborer. Recommended anti-platelet/anti-thrombotic regimen: Continue aspirin 81 mg daily for indefinitely. Continue clopidogrel 75 mg daily for 12 months then stop. These recommendations are made at the time of the intervention.Patient and provider preferences or a changing clinical situation mayrequire modification of this regimen. Consult [facility]iologyfor questions. The 1 year bleeding [...] * POCT Glucose (11/01/2023 7:06 AM EDT) [facility] Glucose, POC 93 65 - 199 mg/dL [facility] Comment: Supplemental ranges: <140 mg/dL before meals <180 mg/dL all other times of the day Blood 11/01/2023 7:06 AM EDT 11/01/2023 7:06 AM EDT Jean Laboy MD POINT OF CARE TEST O RDERABLES [facility] [place] [address] * (ABNORMAL) Differential, Automated (11/01/2023 3:09 AM EDT) [facility] Neutrophil % 63.9 % [facility] Neutrophil Absolute 5.54 1.70 - 6.10 x10(3)/mc L [facility] Lymph % 20.0 % [facility] Lymphocytes Abs 1.7 0.9 - 3.2 x10(3)/mc L [facility] Monocyte % 11.9 % [facility] Monocyte Abs 1.0(H) 0.3 - 0.9 x10(3)/mc L [facility] Eos % 3.2 % [facility] Eosinophils Abs 0.3 0.0 - 0.4 x10(3)/mc L [facility] Basophil % 0.5 % [facility] Baso Absolute 0.0 0.0 - 0.1 x10(3)/mc L [facility] Immature Gran % 0.50 % [facility] Comment: Immature granulocytes(IG's)percentage and absolute count will include metamyelocytes, myelocytes, and promyelocytes. Blood smears from CBCs yielding IG's will be scanned manually for concordance. If this scan disagrees with the automated IG or if promyelocytes are noted, a manual differential will be performed. Immature Gran Absolute 0.04 0.00 - 0.04 x10(3)/ L [facility] Blood 11/01/2023 3:09 AM EDT 11/01/2023 3:29 AM EDT Narrative Resulting Agency Comment Spec In Lab Qamar Gallardo MD HEMATOLOGY ORDERABLE S Performing Organization Address City/State/[facility] Co de Phone Number [facility] [place] [address] * (ABNORMAL) Hemogram (11/01/2023 3:09 AM EDT) White Blood Cell 8.7 4.0 - 9.5 x10(3)/ L [facility] Red Blood Cell 3.72(L) 4.00 - 5.21 x10(6)/mc L [facility] Hemoglobin 12.5 11.7 - 15.5 g/dL [facility] Hematocrit 36.8 35.7 - 45.8 % [facility] Mean Cell Volume 98.9(H) 82.6 - 94.4 fL [facility] Mean Cell Hemoglobin 33.6(H) 27.1 - 32.0 pg [facility] Mean Cell Hemoglobin Concentration 34.0 31.7 - 35.0 g/dL [facility] Platelet 184 145 - 357 x10(3)/ L [facility] RDW Standard Deviation 53.5(H) 37.0 - 46.0 fL [facility] RDW coefficient of variation 14.6(H) 11.5 - 14.1 % [facility] Mean Platelet Volume 11.3 7.6 - 12.9 fL [facility] NRBC% auto 0.0 % [facility] NRBC Absolute 0.000 0.000 - 0.000 x10(3)/mc L [facility] Blood 11/01/2023 3:09 AM EDT 11/01/2023 3:29 AM EDT Narrative Resulting Agency Comment Spec In Lab Qamar Gallardo MD HEMATOLOGY ORDERABLE S Performing Organization Address City/[facility]/ZIP Co de Phone Number [facility] [place] [address] * Phosphorus (11/01/2023 3:09 AM EDT) Phosphorus 2.5 2.5 - 4.5 mg/dL [facility] Blood 11/01/2023 3:09 AM EDT 11/01/2023 3:29 AM EDT Narrative Resulting Agency Comment Spec In Lab Rosa Cornejo MD CHEMISTRY ORDERABLE S Performing Organization Address City/[facility]/ZIP Co de Phone Number [facility] [place] [address] * Magnesium (11/01/2023 3:09 AM EDT) Magnesium 0.82 0.69 - 1.07 mmol/L [facility] Blood 11/01/2023 3:09 AM EDT 11/01/2023 3:29 AM EDT Narrative Resulting Agency Comment Spec In Lab Rosa Cornejo MD CHEMISTRY ORDERABLE S Performing Organization Address City/[facility]/ZIP Co de Phone Number [facility] [place] [address] * (ABNORMAL) Basic Metabolic Panel (non-fasting) (11/01/2023 3:09 AM EDT) Glucose 100 65 - 199 mg/dL [facility] Comment:Diabetes: >=200 mg/d L plus symptoms Blood Urea Nitrogen 14 8 - 18 mg/dL [facility] Creatinine 0.83 0.70 - 1.20 mg/dL [facility] Sodium 137 135 - 145 mmol/L [facility] Potassium 3.4(L) 3.5 - 5.0 mmol/L [facility] Comment: Please note: ??Patients with WBC >100,000 may have falsely elevated Potassium levels. ??For accurate Potassium quantification in these patients send serum separator tube (gold top) for subsequent determinations. ??Contact the Clinical Chemistry Laboratory if there are any questions. Chloride 105 98 - 107 mmol/L [facility] Carbon Dioxide 24 22 - 31 mmol/L [facility] Anion Gap 8 5 - 15 mmol/L [facility] Calcium 8.6 8.5 - 10.5 mg/dL [facility] Est Glomerular Filtration Rate 69 >=60 mL/min/1. 73 m?? [facility] Comment: This patient's estimated [...] Lab Rosa Cornejo MD CHEMISTRY ORDERABLE S [facility] [place] [address] * (ABNORMAL) Troponin (10/31/2023 2:46 PM EDT) Troponin-T, High Sensitivity 544(H) <=14 ng/L [facility] Comment: This patient's troponin [...] troponin value can be found in the [facility] Test Catalog Troponin - [facility] Test Catalog Reference: Fourth [place] Definition of Myocardial Infarction. Journal of the [place] [employer] 2018;72:3732-1881 Blood 10/31/2023 2:46 PM EDT 10/31/2023 2:55 PM EDT Narrative Resulting Agency Comment Spec In Lab Jean Laboy MD CHEMISTRY ORDERABLES [facility] [place] [address] * EKG 12 Lead (10/31/2023 1:07 PM EDT) Ventricular rate 54 BPM MUSE SYSTEM Atrial Rate 54 BPM MUSE SYSTEM P-R Interval 218 ms MUSE SYSTEM QRS Duration 92 ms MUSE SYSTEM Q-T Interval 540 ms MUSE SYSTEM QTC Calculated (Bezet) 512 ms MUSE SYSTEM Calculated P [place] 85 degrees MUSE SYSTEM Calculated R [place] -44 degrees MUSE SYSTEM Calculated T [place] -69 degrees MUSE SYSTEM INTERPRETATION Sinus bradycardia with 1st degree A-V block Left axis deviation Moderate voltage criteria for LVH, may be normal variant ( R in aVL , [place] product ) T wave abnormality, consider inferolateral [...] EDT) Troponin-T, High Sensitivity 580(H) <=14 ng/L [facility] Comment: This patient's troponin [...] troponin value can be found in the [facility] Test Catalog Troponin - [facility] Test Catalog Reference: Fourth [place] Definition of Myocardial Infarction. Journal of the [place] [employer] 2018;72:5809-9672 Blood 10/31/2023 11:3 7 AM EDT 10/31/2023 11:50 AM EDT Narrative Resulting Agency Comment Spec In Lab Rosa Cornejo MD CHEMISTRY ORDERABLE S Performing Organization Address [facility]/State/ZIP Co de Phone Number [facility] [address] [place] [address] * ECHO COMPLETE (10/31/2023 8:52 AM EDT) Anatomical Region Laterality Modality Cardiac Other 10/31/2023 7:57 AM EDT Narrative 10/31/2023 9:45 AM EDT [address] [place] [address] ? Echocardiogram Report Name: ADIN SANTOS ? Study Date: 10/31/2023 07:57 AMBP: 106/76 mmHg ? Patient Location: [id number] A : 1940 ? Height: 163 cm ? Account: [id number] Age: 83 yrs ? Weight: 76 kg Gender: Female ?BSA: 1.8 m2 Ordering Physician: ROSA DEWEY Referring Physician: OMAIRA GIRON Performed By: HAFSA Carmichael Reason For Study: STEMI Interpreting Fellow: Raymond Warren. Exam Location: [facility]. Interpretation Summary -The left ventricle is of [...] is no prior echocardiogram for comparison. Procedure Complete-00100. Satisfactory quality. There is sinus bradycardia. Left [...] Note Edgard Wang MD - 10/31/2023 [address] [place] [address] Echocardiogram Report Name: ADIN SANTOS Study Date: 407:57 AMBP: 106/76 mmHg Patient Location: [id number] A : 1940 Height: 163 cm Account: [id number] Age: 83 yrs Weight: 76 kg Gender: Female BSA: 1.8 m2 Ordering Physician: ROSA DEWEY Referring Physician: OMAIRA GIRON Performed By: HAFSA Carmichael Reason For Study: STEMI Interpreting Fellow: Raymond Warren. Exam Location: [facility]. Interpretation Summary -The left ventricle is of [...] is no prior echocardiogram for comparison. Procedure Complete-28257. Satisfactory quality. There is sinus bradycardia. Left Ventricle Left ventricle is of normal size. Moderately increased thickness of thebasal septum with no obstruction to LV outflow. There is no ventricular septaldefect. Left ventricular systolic function is normal. The left ventricularejection fraction is 64% by Plye's biplane. There [...] EDT) Troponin-T, High Sensitivity 571(H) <=14 ng/L [facility] Comment: This patient's troponin [...] troponin value can be found in the [facility] Laboratory Test Catalog Troponin - [facility] Laboratory Test Catalog Reference: Fourth [place] Definition of Myocardial Infarction. Journal of the [place] College [employer] 2018;72:3735-3906 Blood 10/31/2023 8:51 AM EDT 10/31/2023 9:12 AM EDT Narrative Resulting Agency Comment Spec In Lab Rosa Cornejo MD CHEMISTRY ORDERABLE S [facility] [place] [address] * CARDIAC CATHETERIZATION (10/31/2023 8:10 AM EDT) Anatomical Region Laterality Modality Other Narrative 11/07/2023 9:42 AM EDT ?[facility] ? Cardiac Catheterization/Intervention Report ? Patient Name: Adin Santos. ? Procedure Date: 10/30/2023 ? A #: [id number] ? Primary Physician: Rosa Dewey I ? Case #: [id number] ? File Name: [id number] ? Catheterization Order Number: [id number] ? [facility] ? Final Report [place], [place] ? Patient Name: ? Adin M. Goguen ?ID#: ?[id number] ? : ?1940 ? Procedure Date: ? [...] procedure was Emergent. The indication for ?the terrazzo laborer visit is ACS less than or [...] lesion. Vessel flow pre ? intervention was ASMIRA 0. Lesion length was 28mm. This lesion ? was severely calcified. ? Stent insertion was accomplished through a 7 Fr. AL 1 guide. ? The lesion was predilated with a 3.00mm NC EMERGE 15 MM ? balloon with a maximum inflation pressure of 16 atmospheres. ? A premounted 4.00 x 38 mm [place] (RADHA) was deployed ? with a maximum [...] dose administered prior to arrival in the terrazzo laborer. ?Recommended anti-platelet/anti-thrombotic regimen: ?Continue aspirin 81 mg daily for 12 months then stop. ?Continue clopidogrel 75 mg daily for indefinitely. ?These recommendations are made at the time of the intervention. Patient ?and provider preferences or a changing clinical situation may require ?modification of this regimen. Consult [facility] for ?questions. ? Conclusions: ?* [...] Rosa Dewey MD - 12/05/2023 [facility] Cardiac Catheterization/Intervention Report Patient Name: Adin Santos Procedure Date: 10/30/2023 A #: [id number] Primary Physician: Rosa Dewey I Case #: [id number] File Name: [id number] Catheterization Order Number: [id number] [facility] FinalReport [place], [place] Patient Name: Adin CatherineYasir Edvinree ID#:[id number] :1940 Procedure Date: October 30, 2023 Case #: [id number] Room: 5 Case Physician: Rosa Dewey M.D. [...] was designated as ASA Class III. The [facility] clinical frailtyscale is 5: Mildly Frail. Diagnostic Tests: Electrocardiography: EKG was assessed by ECG. EKG was Abnormal. EKG showed STDeviation >= 0.5 mm, other abnormality and dynamic EKG changes. Medications Prior to Procedure: Aspirin, Angiotensin II Receptor Kristy, Beta Kristy andStatin. Indications for Diagnostic Cath: The priority of the diagnostic procedure was Emergent. Theindication for the terrazzo laborer visit is ACS less than or [...] priority for the procedure was Emergent.The [facility] indication for the procedure was [...] A premounted 4.00 x 38 mm [place] (RADHA) wasdeployed with a maximum inflation pressure [...] dose administered prior to arrival in the terrazzo laborer. Recommended anti-platelet/anti-thrombotic regimen: Continue aspirin 81 mg daily for 12 months then stop. Continue clopidogrel 75 mg daily for indefinitely. These recommendations are made at the time of the intervention.Patient and provider preferences or a changing clinical situation mayrequire modification of this regimen. Consult [facility] Cardiologyfor questions. Conclusions: * Two vessel [...] * (ABNORMAL) Troponin (10/31/2023 4:21 AM EDT) [facility] Troponin-T, High Sensitivity 457(H) <=14 ng/L [facility] Comment: This patient's troponin [...] troponin value can be found in the [facility] Test Catalog Troponin - [facility] Test Catalog Reference: Fourth [place] Definition of Myocardial Infarction. Journal of the [place] College of Cardiology 2018;72:1561-4926 Blood 10/31/2023 4:21 AM EDT 10/31/2023 4:30 AM EDT Narrative Resulting Agency Comment Spec In Lab Rosa Cornejo MD CHEMISTRY ORDERABLE S [facility] [place] [address] * (ABNORMAL) Differential, Automated (10/31/2023 3:05 AM EDT) Neutrophil % 71.7 % [facility] Neutrophil Absolute 8.21(H) 1.70 - 6.10 x10(3)/mc L [facility] Lymph % 16.9 % [facility] Lymphocytes Abs 1.9 0.9 - 3.2 x10(3)/mc L [facility] Monocyte % 9.4 % [facility] Monocyte Abs 1.1(H) 0.3 - 0.9 x10(3)/mc L [facility] Eos % 1.3 % [facility] Eosinophils Abs 0.2 0.0 - 0.4 x10(3)/mc L [facility] Basophil % 0.4 % [facility] Baso Absolute 0.0 0.0 - 0.1 x10(3)/mc L [facility] Immature Gran % 0.30 % [facility] Comment: Immature granulocytes(IG's)percentage and absolute count will include metamyelocytes, myelocytes, and promyelocytes. Blood smears from CBCs yielding IG's will be scanned manually for concordance. If this scan disagrees with the automated IG or if promyelocytes are noted, a manual differential will be performed. Immature Gran Absolute 0.04 0.00 - 0.04 x10(3)/mc L [facility] Blood 10/31/2023 3:05 AM EDT 10/31/2023 3:13 AM EDT Narrative Resulting Agency Comment Spec In Lab Qamar Gallardo MD HEMATOLOGY ORDERABLE S [facility] [place] [address] * (ABNORMAL) Hemogram (10/31/2023 3:05 AM EDT) White Blood Cell 11.5(H) 4.0 - 9.5 x10(3)/ L [facility] Red Blood Cell 3.75(L) 4.00 - 5.21 x10(6)/[facility] Hemoglobin 12.6 11.7 - 15.5 g/dL [facility] Hematocrit 37.1 35.7 - 45.8 % [facility] Mean Cell Volume 98.9(H) 82.6 - 94.4 fL [facility] Mean Cell Hemoglobin 33.6(H) 27.1 - 32.0 pg [facility] Mean Cell Hemoglobin Concentration 34.0 31.7 - 35.0 g/dL [facility] Platelet 206 145 - 357 x10(3)/ L [facility] RDW Standard Deviation 53.4(H) 37.0 - 46.0 [facility] RDW coefficient of variation 14.6(H) 11.5 - 14.1 % [facility] Mean Platelet Volume 11.1 7.6 - 12.9 [facility] NRBC% auto 0.0 % [facility] NRBC Absolute 0.000 0.000 - 0.000 x10(3)/ L [facility] Blood 10/31/2023 3:05 AM EDT 10/31/2023 3:13 AM EDT Narrative Resulting Agency Comment Spec In Lab Qamar Gallardo MD HEMATOLOGY ORDERABLE S Performing Organization Address [facility] Co de Phone Number [facility] [place] [address] * (ABNORMAL) APTT (10/31/2023 3:05 AM EDT) Partial Thromboplastin Time 67(H) 25 - 37 sec [facility] Comment: The PTT is NOT appropriate for heparin monitoring. Use the Anti-Xa level for heparin monitoring (HEP UFH) or LMWH monitoring (HEP LMW). A PTT less than 37 seconds generally indicates adequate hemostasis. Blood 10/31/2023 3:05 AM EDT 10/31/2023 3:13 AM EDT Narrative Resulting Agency Comment Spec In Lab Rosa Cornejo MD HEMATOLOGY ORDERABL ES Performing Organization Address [facility] de Phone Number [facility] [place] [address] * (ABNORMAL) Prothrombin Time (10/31/2023 3:05 AM EDT) Prothrombin Time 12.6(H) 9.4 - 12.5 sec [facility] International Normalization Ratio 1.1 [facility] Comment: An INR <2.0 [...] MD HEMATOLOGY ORDERABL ES Performing Organization Address [facility] Co de Phone [place] [address] * (ABNORMAL) Differential, Automated (10/31/2023 1:37 AM EDT) Pathologist [facility] Neutrophil % 71.1 % [facility] Neutrophil Absolute 7.53(H) 1.70 - 6.10 x10(3)/ L [facility] Lymph % 18.0 % [facility] Lymphocytes Abs 1.9 0.9 - 3.2 x10(3)/ L [facility] Monocyte % 8.7 % [facility] Monocyte Abs 0.9 0.3 - 0.9 x10(3)/[facility] Eos % 1.6 % [facility] Eosinophils Abs 0.2 0.0 - 0.4 x10(3)/[facility] Basophil % 0.4 % [facility] Baso Absolute 0.0 0.0 - 0.1 x10(3)/[facility] Immature Gran % 0.20 % [facility] Comment: Immature granulocytes(IG's)percentage and absolute count will include metamyelocytes, myelocytes, and promyelocytes. Blood smears from CBCs yielding IG's will be scanned manually for concordance. If this scan disagrees with the automated IG or if promyelocytes are noted, a manual differential will be performed. Immature Gran Absolute 0.02 0.00 - 0.04 x10(3)/ L [facility] Blood 10/31/2023 1:37 AM EDT 10/31/2023 1:46 AM EDT Narrative Resulting Agency Comment Spec In Lab Qamar Gallardo MD HEMATOLOGY ORDERABLE S [facility] [place] [address] * (ABNORMAL) Hemogram (10/31/2023 1:37 AM EDT) Pathologist [facility] White Blood Cell 10.6(H) 4.0 - 9.5 x10(3)/mc L [facility] Red Blood Cell 3.78(L) 4.00 - 5.21 x10(6)/mc L [facility] Hemoglobin 13.0 11.7 - 15.5 g/dL [facility] Hematocrit 37.9 35.7 - 45.8 % [facility] Mean Cell Volume 100.3(H) 82.6 - 94.4 fL [facility] Mean Cell Hemoglobin 34.4(H) 27.1 - 32.0 pg [facility] Mean Cell Hemoglobin Concentration 34.3 31.7 - 35.0 g/dL [facility] Platelet 204 145 - 357 x10(3)/ L [facility] RDW Standard Deviation 54.3(H) 37.0 - 46.0 fL [facility] RDW coefficient of variation 14.6(H) 11.5 - 14.1 % [facility] Mean Platelet Volume 11.1 7.6 - 12.9 fL [facility] NRBC% auto 0.0 % [facility] NRBC Absolute 0.000 0.000 - 0.000 x10(3)/ L [facility] Blood 10/31/2023 1:37 AM EDT 10/31/2023 1:46 AM EDT Narrative Resulting Agency Comment Spec In Lab Qamar Gallardo MD HEMATOLOGY ORDERABLE S [facility] [place] [address] * Phosphorus (10/31/2023 1:37 AM EDT) Phosphorus 3.2 2.5 - 4.5 mg/dL [facility] Blood 10/31/2023 1:37 AM EDT 10/31/2023 1:46 AM EDT Narrative Resulting Agency Comment Spec In Lab Rosa Cornejo MD CHEMISTRY ORDERABLE S [facility] [place] [address] * Magnesium (10/31/2023 1:37 AM EDT) Pathologist [facility] Magnesium 0.83 0.69 - 1.07 mmol/L [facility] Blood 10/31/2023 1:37 AM EDT 10/31/2023 1:46 AM EDT Narrative Resulting Agency Comment Spec In Lab Rosa Cornejo MD CHEMISTRY ORDERABLE S Performing Organization Address [facility] Co de Phone Number [facility] [place] [address] * Basic Metabolic Panel (non-fasting) (10/31/2023 1:37 AM EDT) Pathologist [facility] Glucose 114 65 - 199 mg/dL [facility] Comment:Diabetes: >=200 mg/d L plus symptoms Blood Urea Nitrogen 13 8 - 18 mg/dL [facility] Creatinine 0.81 0.70 - 1.20 mg/dL [facility] Sodium 140 135 - 145 mmol/L [facility] Potassium 3.9 3.5 - 5.0 mmol/L [facility] Comment: Please note: ??Patients with WBC >100,000 may have falsely elevated Potassium levels. ??For accurate Potassium quantification in these patients send serum separator tube (gold top) for subsequent determinations. ??Contact the Clinical Chemistry Laboratory if there are any questions. Chloride 107 98 - 107 mmol/L [facility] Carbon Dioxide 25 22 - 31 mmol/L [facility] Anion Gap 8 5 - 15 mmol/L [facility] Calcium 8.6 8.5 - 10.5 mg/dL [facility] Est Glomerular Filtration Rate 72 >=60 mL/min/1. 73 m?? [facility] Comment: This patient's estimated [...] Lab Rosa Cornejo MD CHEMISTRY ORDERABLE S [facility] [place] [address] * (ABNORMAL) Troponin (10/31/2023 1:37 AM EDT) Troponin-T, High Sensitivity 329(H) <=14 ng/L [facility] Comment: This patient's troponin [...] troponin value can be found in the [facility] Test Catalog Troponin - [facility] Test Catalog Reference: Fourth [place] Definition of Myocardial Infarction. Journal of the [place] [employer] 2018;72:4586-9883 Blood 10/31/2023 1:37 AM EDT 10/31/2023 1:46 AM EDT Narrative Resulting Agency Comment Spec In Lab Rosa Cornejo MD CHEMISTRY ORDERABLE S Performing Organization Address [facility]/ZIP Co de Phone Number [facility] [place] [address] * EKG 12 Lead (10/31/2023 1:20 AM EDT) Ventricular rate 52 BPM MUSE SYSTEM Atrial Rate 52 BPM MUSE SYSTEM P-R Interval 224 ms MUSE SYSTEM QRS Duration 108 ms MUSE SYSTEM Q-T Interval 544 ms MUSE SYSTEM QTC Calculated (Bezet) 505 ms MUSE SYSTEM Calculated P [place] 90 degrees MUSE SYSTEM Calculated R [place] -57 degrees MUSE SYSTEM Calculated T [place] -63 degrees MUSE SYSTEM INTERPRETATION Sinus bradycardia with 1st degree A-V block Pulmonary disease pattern Left anterior fascicular block Moderate voltage criteria for LVH, may be normal variant ( R in aVL , [place] product ) T wave abnormality, consider inferior ischemia T wave abnormality, consider anterolateral ischemia Prolonged QT Abnormal ECG When compared with ECG of 30-OCT-2023 22:40, No significant change was found Confirmed by Charles COFFMAN, Butch ([id number]) on 11/01/2023 8:58:03 PM MUSE SYSTEM 10/31/2023 1:20 AM EDT 11/01/2023 8:58 PM EDT Rosa Cornejo MD ECG ORDERABLES Performing Organization Address City/[facility]/ZIP Co de Phone Number MUSE SYSTEM * EKG 12 Lead (10/30/2023 10:40 PM EDT) Ventricular rate 55 BPM MUSE SYSTEM Atrial Rate 55 BPM MUSE SYSTEM P-R Interval 232 ms MUSE SYSTEM QRS Duration 102 ms MUSE SYSTEM Q-T Interval 520 ms MUSE SYSTEM QTC Calculated (Bezet) 497 ms MUSE SYSTEM Calculated P [place] 75 degrees MUSE SYSTEM Calculated R [place] -53 degrees MUSE SYSTEM Calculated T [place] -57 degrees MUSE SYSTEM INTERPRETATION Sinus bradycardia [...] Chest One View (10/30/2023 10:10 PM EDT) [employer] WORKSTATION ID [id number] DH RAD Anatomical Region Laterality Modality Chest [...] and low lung volumes. Findings similar to depilatory painter radiograph from CT 10/30/2023. Thank you for letting us participate in the care of this patient. ??If you are a health care provider and have any questions regarding this report, please contact the number below. ??For patients who have questions please contact the health rn care transition that requested your imaging first. ? Narrative [...] and low lung volumes. Findings similar to depilatory painter radiograph from CT 10/30/2023. Thank you for letting us participate in the care of this patient. If youare a health care provider and have any questions regarding this report,please contact the number below. For patients who have questions please contactthe health rn care transition that requested your imaging first. Rosa Cornejo MD IMG DX ORDERABLES * Green Tube HOLD (10/30/2023 10:05 PM EDT) Pathologist [facility] Green Hold Sample in lab. [facility] Blood Venous Draw / Unknown 10/30/2023 10:05 PM EDT 10/30/2023 10:13 PM EDT Qamar Gallardo MD CHEMISTRY ORDERABLES [facility] [place] [address] * (ABNORMAL) Differential, Automated (10/30/2023 10:05 PM EDT) Pathologist [facility] Neutrophil % 76.6 % [facility] Neutrophil Absolute 6.94(H) 1.70 - 6.10 x10(3)/mc L [facility] Lymph % 15.4 % [facility] Lymphocytes Abs 1.4 0.9 - 3.2 x10(3)/mc L [facility] Monocyte % 6.1 % [facility] Monocyte Abs 0.6 0.3 - 0.9 x10(3)/mc L [facility] Eos % 1.1 % [facility] Eosinophils Abs 0.1 0.0 - 0.4 x10(3)/mc L [facility] Basophil % 0.6 % [facility] Baso Absolute 0.0 0.0 - 0.1 x10(3)/mc L [facility] Immature Gran % 0.20 % [facility] Comment: Immature granulocytes(IG's)percentage and absolute count will include metamyelocytes, myelocytes, and promyelocytes. Blood smears from CBCs yielding IG's will be scanned manually for concordance. If this scan disagrees with the automated IG or if promyelocytes are noted, a manual differential will be performed. Immature Gran Absolute 0.02 0.00 - 0.04 x10(3)/mc L [facility] Blood 10/30/2023 10:0 5 PM EDT 10/30/2023 10:12 PM EDT Narrative Resulting Agency Comment Spec In Lab Qamar Gallardo MD HEMATOLOGY ORDERABLE S [facility] [place] [address] * (ABNORMAL) Hemogram (10/30/2023 10:05 PM EDT) White Blood Cell 9.0 4.0 - 9.5 x10(3)/mc L [facility] Red Blood Cell 3.96(L) 4.00 - 5.21 x10(6)/mc L [facility] Hemoglobin 13.3 11.7 - 15.5 g/dL [facility] Hematocrit 39.1 35.7 - 45.8 % [facility] Mean Cell Volume 98.7(H) 82.6 - 94.4 fL [facility] Mean Cell Hemoglobin 33.6(H) 27.1 - 32.0 pg [facility] Mean Cell Hemoglobin Concentration 34.0 31.7 - 35.0 g/dL [facility] Platelet 211 145 - 357 x10(3)/mc L [facility] RDW Standard Deviation 53.6(H) 37.0 - 46.0 fL [facility] RDW coefficient of variation 14.6(H) 11.5 - 14.1 % [facility] Mean Platelet Volume 11.1 7.6 - 12.9 fL [facility] NRBC% auto 0.0 % [facility] NRBC Absolute 0.000 0.000 - 0.000 x10(3)/mc L [facility] Blood 10/30/2023 10:0 5 PM EDT 10/30/2023 10:12 PM EDT Narrative Resulting Agency Comment Spec In Lab Qamar Gallardo MD HEMATOLOGY ORDERABLE S Performing Organization Address [facility] Co de Phone Number [facility] [place] [address] * Hemoglobin A1c (10/30/2023 10:05 PM EDT) Hemoglobin A1c 5.5 4.3 - 5.6 % [facility] Comment: Reference Range: 4.3 [...] Mellitus, Diabetes Care 2013; 36: Suppl. 1, S67-10 Estimated Average Glucose See note mg/dL [facility] Comment: Estimated Average Glucose not appropriate for patients over 70 years of age. Blood 10/30/2023 10:0 5 PM EDT 10/30/2023 10:12 PM EDT Narrative Resulting Agency Comment Spec In Lab Rosa Cornejo MD CHEMISTRY ORDERABLE S Performing Organization Address [facility] Co de Phone Number [facility] [place] [address] * Lipid Panel (Reflex Direct LDL) (10/30/2023 10:05 PM EDT) Cholesterol, Total 218 mg/dL [facility] Comment: Desirable: ? <200 mg/dL Borderline High: 200-239 mg/dL Higher: ?>ud=809 mg/dL Triglyceride 46 mg/dL [facility] Comment: Normal: ?<150 mg/dL Borderline High: 150-199 mg/dL High: ?200-499 mg/dL Very High: ? >jo=766 mg/dL HDL Cholesterol 64 mg/dL [facility] Comment: Females: High Risk: <50 mg/dL Males: High Risk: <40 mg/dL LDL Cholesterol 145 mg/dL [facility] Comment: Desirable: ? <100 mg/dL Above Desirable: 100-129 mg/dL Borderline High: 130-159 mg/dL High: ?160-189 mg/dL Very High: ? >us=304 mg/dL Lipid Interpretation See Note [facility] Comment: It is important [...] ACC/AHA Guidelines (most recently Feliciano et al. [facility] 03/23/22): For individuals with atherosclerotic cardiovascular disease (ASCVD)or LDL >vy=730 mg/dL, use a high-intensity statin (40-80 mg [...] MD CHEMISTRY ORDERABLE S Performing Organization Address [facility] Co de Phone Number [facility] [place] [address] * [facility] [place] (10/30/2023 10:05 PM EDT) Thyroid Stimulating Hormone 3.35 0.27 - 4.20 mcIU/mL [facility] Comment: Reference Interval (mcIU/mL): Females: ??First Trimester: 0.23-3.88 ??Second Trimester: 0.22-3.90 ??Third Trimester: 0.44-4.66 Blood 10/30/2023 10:0 5 PM EDT 10/30/2023 10:12 PM EDT Narrative Resulting Agency Comment Spec In Lab Rosa Cornejo MD CHEMISTRY ORDERABLE S Performing Organization Address [facility] Co de Phone Number [facility] [place] [address] * pro-Brain Natriuretic Peptide (10/30/2023 10:05 PM EDT) NT-proBNP 375 <=449 pg/mL [facility] Blood 10/30/2023 10:0 5 PM EDT 10/30/2023 10:12 PM EDT Narrative Resulting Agency Comment Spec In Lab Rosa Cornejo MD CHEMISTRY ORDERABLE S [facility] [place] [address] * (ABNORMAL) Comprehensive metabolic panel (non-fasting) (10/30/2023 10:05 PM EDT) Glucose 121 65 - 199 mg/dL [facility] Comment:Diabetes: >=200 mg/d L plus symptoms Blood Urea Nitrogen 14 8 - 18 mg/dL [facility] Creatinine 0.85 0.70 - 1.20 mg/dL [facility] Sodium 142 135 - 145 mmol/L [facility] Potassium 3.9 3.5 - 5.0 mmol/L [facility] Comment: Please note: ??Patients with WBC >100,000 may have falsely elevated Potassium levels. ??For accurate Potassium quantification in these patients send serum separator tube (gold top) for subsequent determinations. ??Contact the Clinical Chemistry Laboratory if there are any questions. Chloride 105 98 - 107 mmol/L [facility] Carbon Dioxide 27 22 - 31 mmol/L [facility] Anion Gap 10 5 - 15 mmol/L [facility] Calcium 8.8 8.5 - 10.5 mg/dL [facility] Protein, Total 6.5 6.1 - 8.0 g/dL [facility] Albumin 4.2 3.2 - 5.2 g/dL [facility] Aspartate Aminotransferase 36(H) 0 - 30 unit/L [facility] Alanine Aminotransferase 17 0 - 30 unit/L [facility] Alkaline Phosphatase 54 35 - 105 unit/L [facility] Bilirubin, Total 0.5 0.2 - 1.3 mg/dL [facility] Est Glomerular Filtration Rate 68 >=60 mL/min/1. 73 m?? [facility] Comment: This patient's estimated [...] MD CHEMISTRY ORDERABLE S Performing Organization Address City/[facility]/ZIP Co de Phone Number [facility] [place] [address] * Phosphorus (10/30/2023 10:05 PM EDT) Phosphorus 3.3 2.5 - 4.5 mg/dL [facility] Blood 10/30/2023 10:0 5 PM EDT 10/30/2023 10:12 PM EDT Narrative Resulting Agency Comment Spec In Lab Rosa Cornejo MD CHEMISTRY ORDERABLE S Performing Organization Address City/[facility]/ZIP Co de Phone Number [facility] [place] [address] * Magnesium (10/30/2023 10:05 PM EDT) Magnesium 0.86 0.69 - 1.07 mmol/L [facility] Blood 10/30/2023 10:0 5 PM EDT 10/30/2023 10:12 PM EDT Narrative Resulting Agency Comment Spec In Lab Rosa Cornejo MD CHEMISTRY ORDERABLE S Performing Organization Address City/[facility]/ZIP Co de Phone Number [facility] [place] [address] * (ABNORMAL) Troponin (10/30/2023 10:05 PM EDT) [facility] Troponin-T, High Sensitivity 214(H) <=14 ng/L [facility] Comment: This patient's troponin [...] troponin value can be found in the [facility] Test Catalog Troponin - [facility] Test Catalog Reference: Fourth [place] Definition of Myocardial Infarction. Journal of the [place] [employer] 2018;72:8336-0755 Blood 10/30/2023 10:0 5 PM EDT 10/30/2023 10:12 PM EDT Narrative Resulting Agency Comment Spec In Lab Rosa Cornejo MD CHEMISTRY ORDERABLE S [facility] [place] [address] * EKG 12 Lead (10/30/2023 8:21 PM EDT) [facility] Ventricular rate 49 BPM MUSE SYSTEM Atrial Rate 49 BPM MUSE SYSTEM P-R Interval 230 ms MUSE SYSTEM QRS Duration 96 ms MUSE SYSTEM Q-T Interval 526 ms MUSE SYSTEM QTC Calculated (Bezet) 475 ms MUSE SYSTEM Calculated P [place] 98 degrees MUSE SYSTEM Calculated R [place] -48 degrees MUSE SYSTEM Calculated T [place] -51 degrees MUSE SYSTEM INTERPRETATION Sinus bradycardia with 1st degree A-V block Incomplete right bundle branch block Left anterior fascicular block Moderate voltage criteria for LVH, may be normal variant ( R in aVL , [place] product ) T wave abnormality, consider inferior [...] Provider: Admin Adt)1848 (Given - Provider: Mary Seweney, TANESHA)2019 (Given - Provider: Danica Shipley RN) [...] last 24 to 72 hours., Routine 1333 ([facility] Hold - Provider: Admin Adt - Reason: Transfer to a Procedural area)1548 ([facility] Unhold - Provider: Admin Adt) sodium chloride 0.9 % (flush) (BD PosiFlush Normal Saline 0.9) flush 5-20 mL 5-20 mL, Intravenous, EVERY 1 MIN PRN, Starting on 10/30/23 at 2208, Until Amna 11/03/23 at 1913, flush, Flush pertains to all indwelling lines. Flush per protocol found in the job aid using the link provided on this medication record., Routine 1333 ([facility] Hold - Provider: Admin Adt - Reason: Transfer to a Procedural area)1548 ([facility] Unhold - Provider: Admin Adt) documented in this encounter Additional Health Concerns Infection Onset Date Last Indicated Resolved Time Rule Out Respiratory 11/02/2023 11/02/2023 024 12:22 PM EDT Rule Out COVID-19 11/02/2023 11/02/2023 11/02/2023 12:22 PM EDT documented as of this encounter Care Teams Neurobiologist Relationship Specialty Start Date End Date Rosie Mathews MD [address] [place] [address] PCP - General Family Medicine 11/25/17 11/23/23 documented as of this encounter
--- OUTSIDE RECORDS SUMMARY | 2024-02-10 10:23 | XMS_ITS | Encounter Summary ---
Author Organization [facility] [place] [address] Care Team Providers Care Advertiser Name Role Phone Rosie Mathews MD Primary Care Provider [phone] Reason for Visit * Auth/Cert (Routine) Specialty Diagnoses / Procedures Referred By Contbruce t Referred To Contact Diagnoses Unstable angina Chest pain NSTEMI Procedures CARDIAC CATHETERIZATION Rosa Dewey MD [facility] [address] [facility] Referral ID Status Reason Start Date Expiration Date Visits Re quested Visits Authorized [id number] 1 1 Encounter Details Date Type Department Care Team (Late st Contact Info) Description 11/01/2023 3:33 PM EDT - 11/01/2023 5:03 PM EDT [place] [address] Rosa Dewey MD [facility] [address] [place], [place] [id number] CARDIAC CATHETERIZATION Social History Tobacco Use Types Packs/Day Years Used Date Smoking Tobacco: Former Smokeless Tobacco: Never Alcohol Use Standard Drinks/Week Comments Not Currently 0 (1 standard drink = 0.6 oz pur e alcohol) [facility] Utilities Answer Date Recorded In [...] place to sleep or slept in a alf (including now)? No 11/01/2023 DH IPV Inpatient [...] for hypertension and hyperlipidemia who presented to [facility] as a transfer from [facility] as a possible STEMI alert with acute onset chest pain. The patient reports that her symptoms initially began on Tuesday when she was walking to [facility] and experienced bilateral arm heaviness while [...] on repeat, her TRU resolved. Cardiology at [facility] was consulted for transfer; the patient was loaded with aspirin 324 mg and ticagrelor 180 mg, started on a heparin drip, and given nitroglycerin with improvement in chest pain. Upon arrival to [facility], the patient was taken directly to the Motion Picture Director. Two lesions were discovered: one in the prox RCA (felt to almost be a BORDERER but they were able to wire, balloon, [...] dose administered prior to arrival in the wharf labourer. Recommended anti-platelet/anti-thrombotic regimen: Continue aspirin 81 mg [...] and low lung volumes. Findings similar to flight engineer instructor radiograph from CT 10/30/2023. Pending Studies and [...] 10:40 AM Izaiah Meyer MD Cardiology at [place] Arrive at: [facility] [address] [phone] Future Orders Complete By Expires Referral to Cardiac Rehab [[id number] Custom] As directed Process Instructions: If no progress note charted, please enter Clinical details in comments. Scheduling Instructions: Questions: My question or request is: STEMI. Cardiac rehab at [facility]. Referral to Home Health [[id number] Custom] As directed Process Instructions: If no progress note charted, please enter Clinical details in comments. Scheduling Instructions: Comments: Please evaluate Adin Santos for admission to Home Health. [address] [facility] [address] (home) Date of : 1940 Inpatient DOCUMENTATION FOR VNA SERVICES (INCLUDING THOSE PATIENTS WITH MEDICARE COVERAGE REQUIRING HOME VNA SERVICES AND/OR HOSPICE SERVICES) PATIENT'S LOCATION: Adin Santos [address] [facility] [address] (home) Cell: Telephone Information: Armhole Raiser Lockstitch's Name: self In discussion with the attending physician, it is certified that this patient is under their care and that they, or a Nurse Practitioner, Clinical Nurse specialist or Physician Physician Vice President who is working directly with them, had [...] regarding health issues HOME HEALTH CARE AGENCY: [facility] [address] [address] START OF CARE: within 24-48 hours of [...] Rosie Mathews MD [address] / [facility] [address] . All A agencies [...] MD / Dr. Masood Pierson [address] [place] [address] 11/09/23 1:55 PM arrival for 2:10 PM appointment Instructional Paraprofessional: Izaiah Meyer MD [address] [place] [address] , 11/24/2023 10:40 AM Your Inpatient Medical Team at [facility] Name(s) of your inpatient provider(s): Attending physician: Rosa Hugo MD Resident physicians: Emile Robles MD; Elmer Tamez MD If you have non-emergent questions, prior to your follow-up visit call: Tuesday-Tuesday between the hours of 8AM-5PM please call the Cardiology Clinic [phone] to speak with a nurse. All other hours please call the Hospital Extractor Filler [phone] and ask to speak to the turning machine set up operator on-call. Your Primary Care Provider Rosie Mathews MD [phone] For questions regarding this document or issues relating to this hospitalization on the Medical Service, please contact your inpatient physician through the [facility] Extractor Filler . Issues afterhours and on weekends will be handled by the Instructional Paraprofessional staff on-call. Associated attestation - Rosa Hugo [...] Mathews MD / Dr. Masood Pierson [address] [place] [address] 11/09/23 1:55 PM arrival for 2:10 PM appointment Instructional Paraprofessional: Izaiah Meyer MD [address] [place] [address] , 11/24/2023 10:40 AM Your Inpatient Medical Team at [facility] Name(s) of your inpatient provider(s): Attending physician: Rosa Hugo MD Resident physicians: Emile Robles MD; Elmer Tamez MD If you have non-emergent questions, prior to your follow-up visit call: Tuesday-Tuesday between the hours of 8AM-5PM please call the Cardiology Clinic [phone] to speak with a nurse. All other hours please call the Hospital Extractor Filler [phone] and ask to speak to the turning machine set up operator on-call. Your Primary Care Provider Rosie Mathwes MD [phone] documented in this encounter Medications at Time [...] for hypertension and hyperlipidemia who presented to [facility] as a transfer from [facility] [...] for hypertension and hyperlipidemia who presented to [facility] as a transfer from [facility] [...] Resident on Cardiology Service Cardiology S1 (Pager [phone]) Note written in conjunction with Claudio Perla [facility] Medical Student, MS3 Associated attestation [...] Nirmala Webb - 11/01/2023 11:25 AM EDT Retort Press Operator Encounter Note Patient Name: Adin Santos : [id number] MR#: [id number] Admit Date: 10/30/2023 5:11 PM Hospital Day 2 days Narrative: Self initiated visit to patient for Spiritual support in a regular unit rounds. Assessment: Patient is in the bathroom at the time of this visit. Not a good time for Numerical Analysis Group Manager visit. Intervention and Outcome: An attempted visit [...] for hypertension and hyperlipidemia who presented to [facility] as a transfer from [facility] [...] and low lung volumes. Findings similar to flight engineer instructor radiograph from CT 10/30/2023. Scheduled Medications: [AUG [...] for hypertension and hyperlipidemia who presented to [facility] as a transfer from [facility] [...] Resident on Cardiology Service Cardiology S1 (Pager [phone]) Note written in conjunction with Claudio Perla [facility] Medical Student, MS3 Associated attestation [...] for hypertension and hyperlipidemia who presented to [facility] as a transfer from [facility] as a possible STEMI alert with acute onset chest pain. Active Problems: Active Hospital Problems Diagnosis Unstable angina Resolved Hospital Problems No resolved problems to display. 24 hr events: - Cath'd yesterday with lesion in the proximal RCA (initially thought it was BORDERER but they were ableto wire, balloon and [...] and low lung volumes. Findings similar to flight engineer instructor radiograph from CT 10/30/2023. TTE (10/30): Interpretation [...] for hypertension and hyperlipidemia who presented to [facility] as a transfer from [facility] [...] Resident on Cardiology Service Cardiology S1 (Pager [phone]) Note written in conjunction with Claudio Perla [facility] Medical Student, MS3 Associated attestation [...] PCP: Rosie Mathews MD PCP phone number: [phone] Date of Admission: 10/30/2023 ( Hospital Day 0 days ) Attending:Rosa Cornejo MD ID: Adin Santos is a 83 y.o. female PMH significant for hypertension and hyperlipidemia who presented to [facility] as a transfer from [facility] as a possible STEMI alert with acute onset chest pain. The patient reports that her symptoms initially began on Tuesday when she was walking to [facility] and experienced bilateral arm heaviness while [...] on repeat, her TRU resolved. Cardiology at [facility] was consulted for transfer; the patient was loaded with aspirin 324 mg and ticagrelor 180 mg, started on a heparin drip, and given nitroglycerin with improvement in chest pain. Upon arrival to [facility], the patient was taken directly to the Motion Picture Director. 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 Findings similar to flight engineer instructor radiograph from CT 10/30/2023. Assessment & Plan: Adin Santos is a 83 y.o. female PMH significant for hypertension and hyperlipidemia who presented to [facility] as a transfer from [facility] [...] with HTN HLD transferred with chest from [facility]. BP 217/68, HR 71 EKG with [...] information for follow-up Home Health & H[facility]ice, [place] [address] TANESHA BOYCE confirmed with [facility] that they will see the patient [...] N/A Patient is insured through: Primary Insurance: [employer] MANAGED MEDICARE Payor: [employer] MANAGED MEDICARE / Plan: [employer] MANAGED MEDICARE PPO / Product Type: *No [...] in the room. Electrolytes replaced, see MAR. union laborer sites remained C/D/I with baseline ecchymosis unchanged. Pt complained of back pain, lidocaine patch given. Right IV infiltrated during infusion, patient is marked with sharpie, IV removed. See flowsheet for I+O's and safety rounding. Patient is able to make needs known and call capps within reach. PLAN MOVING FORWARD: Monitor Tele, control BP, monitor wharf labourer sites, D/C Planning INDIVIDUALIZED FALL PREVENTION INTERVENTIONS: [...] in an outpatient cardiac rehabilitation program at [facility] was discussed. Patient agrees to a [...] and above on RA. PT went to wharf labourer today. Left fem site oozed throughout shift, [...] MOVING FORWARD: Monitor Tele, control BP, monitor wharf labourer sites, D/C Planning INDIVIDUALIZED FALL PREVENTION INTERVENTIONS: [...] Admitted From: Transfer from another hospital Location: [facility] Reason for Hospitalization: chest pain Covid Vaccination Status: 1st, 2nd & booster Past medical History: No past medical history on file. Hospitalizations Within the Past 30 Days: no previous admission in last 30 days Current Decision-Making Capacity: Self If AD's have not been completed the following surrogate would be surrogate decision maker per [place] surrogate decision making law. (Only good for 180 days) Any patient receiving care in [place] must abide by [place] law. The hierarchy for surrogate decision making [...] (i) The agent with financial power of business attorney or a conservator appointed in accordance [...] has the electric, gas, oil, or water [employer] threatened to shut off services in your [...] toilet seat Home Address confirmed as: [address] [facility] [address] Social & Family Supports: All names listed below confirmed with patient as current and correct Extended Emergency Contact Information Primary Emergency Contact: Iris Downing Address: [address] [place], [place] [address] [place] [address] Mobile Relation: Child Secondary Emergency Contact: Karen More Address: [address] [facility] [address] Mobile Relation: Child Current Care Provided by: self Provides Primary Care For: no one Caregiver if needed: child(emmanuel), adult Quality of Family relationships: involved, supportive Community Resources being provided currently: other (see comments) (receives [facility] services at home (1xweekly)) Behavioral Health [...] Specific Information: N/A Health/Prescription Coverage: Primary Insurance: [employer] MANAGED MEDICARE Payor: [employer] MANAGED MEDICARE / Plan: [employer] MANAGED MEDICARE PPO / Product Type: *No Product type* / Secondary Insurance: N/A Prescription Coverage: Yes Preferred Pharmacy: [id number] - [place], [place] - [address] [place] [id number] [place] Status: Patient is a : No Primary Care Provider listed: Masood Pierson MD [phone] Patient/Caregiver Goals of Treatment: home when MR Potential Needs for Transition of Care: home health care Agency Referrals: Not Applicable I have met with the patient to: discuss discharge planning needs. provide the [facility], Office of Care Management letter from the Dag Coater pertaining to rehab referrals. provide a letter describing our affiliations within the [facility] and educate about their right to choose where referrals are sent. provide a list of Home Health Agencies / Durable Medical Equipment vendors which serve their preferred geographic area. provided patient with [facility] Star Quality Rating handout. They have requested referrals to: [facility] [address] [place] [address] Note routed to a Transit Worker who will communicate referrals to facilities and [...] results. PO hydralazine added for BP control. union laborer sites remain C/D/I, ecchymosis unchanged th roughout shift. See flowsheet for I+O's and safety rounding. Patient is able to make needs known and call capps within reach. PLAN MOVING FORWARD: Monitor Tele, control CP and BP, NPO at MD for cath, monitor wharf labourer sites, D/C Planning INDIVIDUALIZED FALL PREVENTION INTERVENTIONS: [...] AM EDT Office Visit Cardiology at [address] [place] [address] Izaiah Meyer MD [facility] [place] [address] Scheduled Referrals Name Type Priority Associated Diagnoses [...] Absolute 5.28 1.70 - 6.10 x10(3)/mc L [facility] Lymph % 15.2 % [facility] Lymphocytes Abs 1.3 0.9 - 3.2 x10(3)/mc L [facility] Monocyte % 16.9 % [facility] Monocyte Abs 1.4(H) 0.3 - 0.9 x10(3)/mc L [facility] Eos % 3.7 % [facility] Eosinophils Abs 0.3 0.0 - 0.4 x10(3)/ L [facility] Basophil % 0.5 % [facility] Baso Absolute 0.0 0.0 - 0.1 x10(3)/mc L [facility] Immature Gran % 0.40 % [facility] Comment: Immature granulocytes(IG's)percentage and absolute count will include metamyelocytes, myelocytes, and promyelocytes. Blood smears from CBCs yielding IG's will be scanned manually for concordance. If this scan disagrees with the automated IG or if promyelocytes are noted, a manual differential will be performed. Immature Gran Absolute 0.03 0.00 - 0.04 x10(3)/mc L [facility] Blood 11/03/2023 3:46 AM EDT 11/03/2023 4:11 AM EDT Narrative Resulting Agency Comment Spec In Lab Qamar Gallardo MD HEMATOLOGY ORDERABLE S [facility] [place] [address] * (ABNORMAL) Hemogram (11/03/2023 3:46 AM EDT) White Blood Cell 8.3 4.0 - 9.5 x10(3)/mc L [facility] Red Blood Cell 3.77(L) 4.00 - 5.21 x10(6)/mc L [facility] Hemoglobin 13.1 11.7 - 15.5 g/dL [facility] Hematocrit 38.0 35.7 - 45.8 % [facility] Mean Cell Volume 100.8(H) 82.6 - 94.4 fL [facility] Mean Cell Hemoglobin 34.7(H) 27.1 - 32.0 pg [facility] Mean Cell Hemoglobin Concentration 34.5 31.7 - 35.0 g/dL [facility] Platelet 181 145 - 357 x10(3)/mc L [facility] RDW Standard Deviation 54.7(H) 37.0 - 46.0 fL [facility] RDW coefficient of variation 14.6(H) 11.5 - 14.1 % [facility] Mean Platelet Volume 11.2 7.6 - 12.9 fL [facility] NRBC% auto 0.0 % [facility] NRBC Absolute 0.000 0.000 - 0.000 x10(3)/mc L [facility] Blood 11/03/2023 3:46 AM EDT 11/03/2023 4:11 AM EDT Narrative Resulting Agency Comment Spec In Lab Qamar Gallardo MD HEMATOLOGY ORDERABLE S Performing Organization Address City/[facility]/ZIP Co de Phone Number [facility] [place] [address] * Phosphorus (11/03/2023 3:46 AM EDT) Pathologist [facility] Phosphorus 3.2 2.5 - 4.5 mg/dL [facility] Comment:result rechecked-KS Blood 11/03/2023 3:46 AM EDT 11/03/2023 4:11 AM EDT Narrative Resulting Agency Comment Spec In Lab Rosa Cornejo MD CHEMISTRY ORDERABLE S Performing Organization Address [facility] Co de Phone Number [facility] [place] [address] * Magnesium (11/03/2023 3:46 AM EDT) [facility] Magnesium 0.90 0.69 - 1.07 mmol/L [facility] Blood 11/03/2023 3:46 AM EDT 11/03/2023 4:11 AM EDT Narrative Resulting Agency Comment Spec In Lab Rosa Cornejo MD CHEMISTRY ORDERABLE S Performing Organization Address [facility] Co de Phone Number [facility] [place] [address] * (ABNORMAL) Basic Metabolic Panel (non-fasting) (11/03/2023 3:46 AM EDT) Pathologist [facility] Glucose 105 65 - 199 mg/dL [facility] Comment:Diabetes: >=200 mg/d L plus symptoms Blood Urea Nitrogen 13 8 - 18 mg/dL [facility] Creatinine 0.83 0.70 - 1.20 mg/dL [facility] Sodium 139 135 - 145 mmol/L [facility] Potassium 4.0 3.5 - 5.0 mmol/L [facility] Comment: Please note: ??Patients with WBC >100,000 may have falsely elevated Potassium levels. ??For accurate Potassium quantification in these patients send serum separator tube (gold top) for subsequent determinations. ??Contact the Clinical Chemistry Laboratory if there are any questions. Chloride 108(H) 98 - 107 mmol/L [facility] Carbon Dioxide 19(L) 22 - 31 mmol/L [facility] Anion Gap 12 5 - 15 mmol/L [facility] Calcium 8.2(L) 8.5 - 10.5 mg/dL [facility] Est Glomerular Filtration Rate 69 >=60 mL/min/1. 73 m?? [facility] Comment: This patient's estimated GFR [...] Lab Rosa Cornejo MD CHEMISTRY ORDERABLE S [facility] [place] [address] * EKG 12 Lead (11/02/2023 12:44 PM EDT) Ventricular rate 83 BPM MUSE SYSTEM Atrial Rate 83 BPM MUSE SYSTEM P-R Interval 216 ms MUSE SYSTEM QRS Duration 90 ms MUSE SYSTEM Q-T Interval 384 ms MUSE SYSTEM QTC Calculated (Bezet) 451 ms MUSE SYSTEM Calculated P [place] 92 degrees MUSE SYSTEM Calculated R [place] -51 degrees MUSE SYSTEM Calculated T [place] -33 degrees MUSE SYSTEM INTERPRETATION Sinus rhythm with 1st degree A-V block with Premature atrial complexes Left axis deviation Moderate voltage criteria for LVH, may be normal variant ( R in aVL , Ifeanyi product ) Anterolatera l infarct (cited on or before 01-NOV-2023) Abnormal ECG When compared with ECG of 01-NOV-2023 22:10, Premature atrial complexes are now Present [place] interval has increased Vent. rate has decreased BY ??56 BPM Confirmed by MD Kevin, Esteban ([id number]) on 11/02/2023 1:32:10 PM MUSE SYSTEM 11/02/2023 12:4 4 PM EDT 11/02/2023 1:32 PM EDT Rosa Hugo MD ECG ORDERABLES MUSE SYSTEM * (ABNORMAL) Urinalysis Microscopic Exam (11/02/2023 11:40 AM EDT) RBC, Urine <1 0 - 4 /HPF [facility] Comment: Interpret results with caution, microscopic results are from suboptimal specimen volume WBC, Urine 16(H) 0 - 5 /HPF [facility] Comment: Interpret results with caution, microscopic results are from suboptimal specimen volume Bacteria, Urine Many(A) None /HPF [facility] Squamous Epithelial Cells Raw Data, Urine 10(H) <=4 /HPF [facility] Hyaline Casts, Urine 2 0 - 2 /LPF [facility] Comment: Interpret results with caution, microscopic results are from suboptimal specimen volume Clean Catch Urine 11/02/2023 11:40 AM EDT 11/02/2023 12:05 PM EDT Narrative Resulting Agency Comment Spec In Lab Elmer Tamez MD URINE ORDERABLES [facility] [place] [address] * (ABNORMAL) Urinalysis with reflex Culture (11/02/2023 11:40 AM EDT) Glucose, Urine Dipstick Negative Negative mg/dL [facility] Protein, Urine Dipstick 30(A) Negative mg/dL [facility] Bilirubin, Urine Dipstick Negative Negative mg/dL [facility] Comment: Clinical correlation required for positive Urine Bilirubin results as false positive may occur with some drugs and drug related products. If a false positive is suspected a serum total bilirubin should be considered if clinically indicated. Urobilinogen, Urine Dipstick Normal Normal mg/dL [facility] pH, Urn (dipstick) 5.5 5.0 - 8.0 [facility] Blood, Urine Dipstick Negative Negative mg/dL [facility] Ketone, Urine Dipstick Trace(A) Negative mg/dL [facility] Nitrite, Urine Dipstick Positive(A) Negative [facility] Leukocytes, Urine Dipstick Small(A) Negative [facility] Appearance, Urine Dipstick Cloudy(A) Clear [facility] Specific [place] Urine Automated >=1.030(A) 1.005 - 1.030 [facility] Color, Urine Dipstick Dark Yellow Yellow [facility] Reflex to Culture Yes [facility] Clean Catch Urine 11/02/2023 11:40 AM EDT 11/02/2023 12:04 PM EDT Narrative Resulting Agency Comment Spec In Lab Rosa Hugo MD URINE ORDERABLES [facility] [place] [address] * Respiratory Panel PCR (11/02/2023 10:15 AM EDT) Respiratory Panel Source GLASS TUBE BENDER Swab [facility] Respiratory Panel PCR Negative Negative [facility] Comment: Respiratory Panels are performed on the [employer], using multiplexed PCR nucleic acid detection. ??Negative results do not preclude respiratory infection and should not be used as the sole basis for diagnosis, treatment or other management decisions. Adenovirus Not Detected Not Detected [facility] Coronavirus HKU1 Not Detected Not Detected [facility] Coronavirus NL63 Not Detected Not Detected [facility] Coronavirus 229E Not Detected Not Detected [facility] Coronavirus OC43 Not Detected Not Detected [facility] LABORATORY SARS-CoV-2 Not Detected Not Detected [facility] Comment: Testing for SARS-CoV-2 (Severe acute respiratory syndrome coronavirus 2) to aid in the diagnosis of COVID-19 is performed using the BioFire Respiratory Panel 2.1 ([employer]) as authorized by the FDA issued Emergency Use Authorization (EUA). This panel also tests for multiple other viral and bacterial pathogens. This assay is intended for In-vitro Diagnostic (IVD) use with nasopharyngeal swabs in viral transport media. The assay is performed based on the instructions for use and additional guidance provided by the FDA. Testing is performed in laboratories within the [facility], each of which is certified under the [...] fact sheets at the following FDA website: https://www.fda.gov/medical-devices/vvwpdjynven-xdyvwux-4310-fkujv-12-czxjlbzpf- use-a cnrvyrojshpax-xookqwj-ywebapf/opfdq-flxzkmqkuxb-elbg Human Metapneumovirus Not Detected Not Detected [facility] Human Rhinovirus/Enterov irus Not Detected Not Detected [facility] Influenza A Not Detected Not Detected [facility] Influenza B Not Detected Not Detected [facility] Parainfluenza 1 Not Detected Not Detected [facility] Parainfluenza 2 Not Detected Not Detected [facility] Parainfluenza 3 Not Detected Not Detected [facility] Parainfluenza 4 Not Detected Not Detected [facility] Respiratory Syncytial Virus Not Detected Not Detected [facility] Chlamydophila pneumoniae Not Detected Not Detected [facility] Mycoplasma pneumoniae Not Detected Not Detected [facility] Nasopharyngeal Swab 11/02/19 10:15 AM EDT 11/02/2023 10:49 AM EDT Narrative Resulting Agency Comment Spec In Lab Rosa Hugo MD MICROBIOLOGY - GEN ERAL ORDERABLES [facility] [place] [place] [address] * XR Chest One View (11/02/2023 2:51 AM EDT) WORKSTATION ID [id number] RAD Anatomical Region Laterality Modality Chest N/A [...] who have questions please contact the health caregivers homecare that requested your imaging first. ? Electronically signed by: Omaira Tran MD, [facility] ([phone]), at 11/02/2023 4:56 AM Narrative 11/02/2023 4:56 [...] patients who have questions please contactthe health caregivers homecare that requested your imaging first. Electronically signed by: Omaira Tran MD, [facility]([phone]), at 11/02/2023 4:56 AM Rosa Hugo MD IMG DX ORDERABLES * (ABNORMAL) Differential, Automated (11/02/2023 12:35 AM EDT) Neutrophil % 76.5 % [facility] Neutrophil Absolute 7.69(H) 1.70 - 6.10 x10(3)/mc L [facility] Lymph % 8.3 % [facility] Lymphocytes Abs 0.8(L) 0.9 - 3.2 x10(3)/mc L [facility] Monocyte % 12.9 % [facility] Monocyte Abs 1.3(H) 0.3 - 0.9 x10(3)/mc L [facility] Eos % 1.4 % [facility] Eosinophils Abs 0.1 0.0 - 0.4 x10(3)/mc L [facility] Basophil % 0.4 % [facility] Baso Absolute 0.0 0.0 - 0.1 x10(3)/mc L [facility] Immature Gran % 0.50 % [facility] Comment: Immature granulocytes(IG's)percentage and absolute count will include metamyelocytes, myelocytes, and promyelocytes. Blood smears from CBCs yielding IG's will be scanned manually for concordance. If this scan disagrees with the automated IG or if promyelocytes are noted, a manual differential will be performed. Immature Gran Absolute 0.05(H) 0.00 - 0.04 x10(3)/mc L [facility] Blood 11/02/2023 12:3 5 AM EDT 11/02/2023 12:43 AM EDT Narrative Resulting Agency Comment Spec In Lab Qamar Gallardo MD HEMATOLOGY ORDERABLE S [facility] [place] [address] * (ABNORMAL) Hemogram (11/02/2023 12:35 AM EDT) White Blood Cell 10.0(H) 4.0 - 9.5 x10(3)/ L [facility] Red Blood Cell 4.06 4.00 - 5.21 x10(6)/mc L [facility] Hemoglobin 13.8 11.7 - 15.5 g/dL [facility] Hematocrit 39.8 35.7 - 45.8 % [facility] Mean Cell Volume 98.0(H) 82.6 - 94.4 fL [facility] Mean Cell Hemoglobin 34.0(H) 27.1 - 32.0 pg [facility] Mean Cell Hemoglobin Concentration 34.7 31.7 - 35.0 g/dL [facility] Platelet 198 145 - 357 x10(3)/mc L [facility] RDW Standard Deviation 52.1(H) 37.0 - 46.0 fL [facility] RDW coefficient of variation 14.3(H) 11.5 - 14.1 % [facility] Mean Platelet Volume 11.4 7.6 - 12.9 fL [facility] NRBC% auto 0.0 % [facility] NRBC Absolute 0.000 0.000 - 0.000 x10(3)/mc L [facility] Blood 11/02/2023 12:3 5 AM EDT 11/02/2023 12:43 AM EDT Narrative Resulting Agency Comment Spec In Lab Qamar Gallardo MD HEMATOLOGY ORDERABLE S [facility] [place] [address] * (ABNORMAL) Phosphorus (11/02/2023 12:35 AM EDT) Phosphorus 1.6(L) 2.5 - 4.5 mg/dL [facility] Blood 11/02/2023 12:3 5 AM EDT 11/02/2023 12:43 AM EDT Narrative Resulting Agency Comment Spec In Lab Rosa Cornejo MD CHEMISTRY ORDERABLE S Performing Organization Address City/[facility]/ZIP Co de Phone Number [facility] [place] [address] * Magnesium (11/02/2023 12:35 AM EDT) Magnesium 0.87 0.69 - 1.07 mmol/L [facility] Blood 11/02/2023 12:3 5 AM EDT 11/02/2023 12:43 AM EDT Narrative Resulting Agency Comment Spec In Lab Rosa Cornejo MD CHEMISTRY ORDERABLE S Performing Organization Address City/[facility]/ZIP Co de Phone Number [facility] [place] [address] * Basic Metabolic Panel (non-fasting) (11/02/2023 12:35 AM EDT) Glucose 125 65 - 199 mg/dL [facility] Comment:Diabetes: >=200 mg/d L plus symptoms Blood Urea Nitrogen 9 8 - 18 mg/dL [facility] Creatinine 0.83 0.70 - 1.20 mg/dL [facility] Sodium 136 135 - 145 mmol/L [facility] Potassium 3.6 3.5 - 5.0 mmol/L [facility] Comment: Please note: ??Patients with WBC >100,000 may have falsely elevated Potassium levels. ??For accurate Potassium quantification in these patients send serum separator tube (gold top) for subsequent determinations. ??Contact the Clinical Chemistry Laboratory if there are any questions. Chloride 102 98 - 107 mmol/L [facility] Carbon Dioxide 25 22 - 31 mmol/L [facility] Anion Gap 9 5 - 15 mmol/L [facility] Calcium 9.0 8.5 - 10.5 mg/dL [facility] Est Glomerular Filtration Rate 69 >=60 mL/min/1. 73 m?? [facility] Comment: This patient's estimated GFR [...] Lab Rosa Cornejo MD CHEMISTRY ORDERABLE S [facility] [place] [address] * Blood culture (11/02/2023 12:35 AM EDT) Blood Culture No growth at 5 days. [facility] Blood 11/02/2023 12:3 5 AM EDT 11/02/2023 1:55 AM EDT Comment:#2 site ukn Narrative Resulting Agency Comment Spec In Lab Rosa Hugo MD MICROBIOLOGY - BLO OD ORDERABLES Performing Organization Address City/[facility]/ZIP Co de Phone Number [facility] [place] [address] * Blood culture (11/02/2023 12:15 AM EDT) Blood Culture No growth at 5 days. [facility] Blood 11/02/2023 12:1 5 AM EDT 11/02/2023 1:54 AM EDT Comment:#1site unk Narrative Resulting Agency Comment Spec In Lab Rosa Hugo MD MICROBIOLOGY - BLO OD ORDERABLES Performing Organization Address [facility] Co de Phone Number [facility] [place] [address] * EKG 12 Lead (11/01/2023 10:10 PM EDT) Ventricular rate 139 BPM MUSE SYSTEM Atrial Rate 139 BPM MUSE SYSTEM P-R Interval 168 ms MUSE SYSTEM QRS Duration 84 ms MUSE SYSTEM Q-T Interval 286 ms MUSE SYSTEM QTC Calculated (Bezet) 435 ms MUSE SYSTEM Calculated R [place] -59 degrees MUSE SYSTEM Calculated T [place] -27 degrees MUSE SYSTEM INTERPRETATION Mid-RP tachycardia, [...] interpretation Confirmed by fellow MD Bowen Ashley ([id number]) on 11/04/2023 7:57:50 AM Confirmed by MD Carrillo Danette ([id number]) on 11/04/2023 4:32:03 PM MUSE SYSTEM 11/01/2023 10:1 0 PM EDT 11/04/2023 4:32 PM EDT Rosa Cornejo MD ECG ORDERABLES MUSE SYSTEM * (ABNORMAL) Hemogram (11/01/2023 10:06 PM EDT) White Blood Cell 10.4(H) 4.0 - 9.5 x10(3)/mc L [facility] Red Blood Cell 4.11 4.00 - 5.21 x10(6)/mc L [facility] Hemoglobin 14.0 11.7 - 15.5 g/dL [facility] Hematocrit 41.1 35.7 - 45.8 % [facility] Mean Cell Volume 100.0(H) 82.6 - 94.4 fL [facility] Mean Cell Hemoglobin 34.1(H) 27.1 - 32.0 pg [facility] Mean Cell Hemoglobin Concentration 34.1 31.7 - 35.0 g/dL [facility] Platelet 197 145 - 357 x10(3)/mc L [facility] RDW Standard Deviation 54.0(H) 37.0 - 46.0 [facility] RDW coefficient of variation 14.6(H) 11.5 - 14.1 % [facility] Mean Platelet Volume 11.2 7.6 - 12.9 [facility] NRBC% auto 0.0 % [facility] NRBC Absolute 0.000 0.000 - 0.000 x10(3)/mc L [facility] Blood 11/01/2023 10:0 6 PM EDT 11/01/2023 10:22 PM EDT Narrative Resulting Agency Comment Spec In Lab Rosa Hugo MD HEMATOLOGY ORDERAB LES [facility] [place] [id number] * POCT Glucose (11/01/2023 5:59 PM EDT) Glucose, POC 104 65 - 199 mg/dL [facility] Comment: Supplemental ranges: <140 mg/dL before meals <180 mg/dL all other times of the day Blood 11/01/2023 5:59 PM EDT 11/01/2023 5:59 PM EDT Rosa Hugo MD POINT OF CARE TEST ORDERABLES [facility] [place] [address] * POCT Glucose (11/01/2023 5:35 PM EDT) Glucose, POC 85 65 - 199 mg/dL [facility] Comment: Supplemental ranges: <140 mg/dL before meals <180 mg/dL all other times of the day Blood 11/01/2023 5:35 PM EDT 11/01/2023 5:35 PM EDT Roas Hugo MD POINT OF CARE TEST ORDERABLES [facility] [place] [address] * EKG 12 Lead (11/01/2023 3:22 PM EDT) Ventricular rate 59 BPM MUSE SYSTEM Atrial Rate 59 BPM MUSE SYSTEM P-R Interval 220 ms MUSE SYSTEM QRS Duration 94 ms MUSE SYSTEM Q-T Interval 428 ms MUSE SYSTEM QTC Calculated (Bezet) 423 ms MUSE SYSTEM Calculated P [place] 76 degrees MUSE SYSTEM Calculated R [place] -50 degrees MUSE SYSTEM Calculated T [place] -59 degrees MUSE SYSTEM INTERPRETATION Sinus bradycardia [...] Modality Other Narrative 11/02/2023 4:57 PM EDT ?[facility] ? Cardiac Catheterization/Intervention Report ? Patient Name: Adin Santos. ? Procedure Date: 11/01/2023 ? A #: [id number] ? Primary Physician: Rosa Dewey I ? Case #: [id number] ? File Name: [id number] ? Catheterization Order Number: [id number] ? [facility] ? Final Report [place], [place] ? Patient Name: ? Adin M. Goguen ?ID#: ?[id number] ? : ?1940 ? Procedure Date: ? [...] was designated as ASA Class III. The [facility] clinical ?frailty scale is 4: Vulnerable. ? [...] procedure was Urgent. The indication for ?the wharf labourer visit is ACS greater than 24 hrs. [...] ??A premounted ? 3.50 x 15 mm Wyanet Mathews (RADHA) was deployed with a maximum ? [...] ? A premounted 3.50 x 15 mm Wyanet Mathews (RADHA) was deployed ? with a maximum [...] dose administered prior to arrival in the wharf labourer. ?Recommended anti-platelet/anti-thrombotic regimen: ?Continue aspirin 81 mg daily for indefinitely. ?Continue clopidogrel 75 mg daily for 12 months then stop. ?These recommendations are made at the time of the intervention. Patient ?and provider preferences or a changing clinical situation may require ?modification of this regimen. Consult [facility] [place] Interventional Cardiology for ?questions. ?The 1 year [...] Procedure Note Rosa Dewey MD - 12/12/2023 [facility] Cardiac Catheterization/Intervention Report Patient Name: Adin Santos Procedure Date: 11/01/2023 A #: [id number] Primary Physician: Rosa Dewey I Case #: [id number] File Name: [id number] Catheterization Order Number: [id number] [facility] FinalReport [place], [place] Patient Name: Adin Santos ID#:[id number] :1940 Procedure Date: November 01, 2023 Case [...] diagnostic procedure was Urgent. The indicationfor the wharf labourer visit is ACS greater than 24 hrs. [...] atmospheres. Apremounted 3.50 x 15 mm Andrea Mathews (RADHA) was deployed with amaximum inflation pressure [...] The lesion was predilated with a 3.00mm [id number] MM balloon with a maximum inflation pressure of 14atmospheres. A premounted 3.50 x 15 mm Wyanet Mathews (RADHA) wasdeployed with a maximum inflation pressure [...] dose administered prior to arrival in the wharf labourer. Recommended anti-platelet/anti-thrombotic regimen: Continue aspirin 81 mg daily for indefinitely. Continue clopidogrel 75 mg daily for 12 months then stop. These recommendations are made at the time of the intervention.Patient and provider preferences or a changing clinical situation mayrequire modification of this regimen. Consult [facility] [place] Interventional Cardiologyfor questions. The 1 year bleeding [...] POCT Glucose (11/01/2023 7:06 AM EDT) Pathologist [facility] Glucose, POC 93 65 - 199 mg/dL [facility] Comment: Supplemental ranges: <140 mg/dL before meals <180 mg/dL all other times of the day Blood 11/01/2023 7:06 AM EDT 11/01/2023 7:06 AM EDT Jean Laboy MD POINT OF CARE TEST O RDERABLES [facility] [place] [address] * (ABNORMAL) Differential, Automated (11/01/2023 3:09 AM EDT) Neutrophil % 63.9 % [facility] Neutrophil Absolute 5.54 1.70 - 6.10 x10(3)/mc L [facility] Lymph % 20.0 % [facility] Lymphocytes Abs 1.7 0.9 - 3.2 x10(3)/mc L [facility] Monocyte % 11.9 % [facility] Monocyte Abs 1.0(H) 0.3 - 0.9 x10(3)/ L [facility] Eos % 3.2 % [facility] Eosinophils Abs 0.3 0.0 - 0.4 x10(3)/ L [facility] Basophil % 0.5 % [facility] Baso Absolute 0.0 0.0 - 0.1 x10(3)/ L [facility] Immature Gran % 0.50 % [facility] Comment: Immature granulocytes(IG's)percentage and absolute count will include metamyelocytes, myelocytes, and promyelocytes. Blood smears from CBCs yielding IG's will be scanned manually for concordance. If this scan disagrees with the automated IG or if promyelocytes are noted, a manual differential will be performed. Immature Gran Absolute 0.04 0.00 - 0.04 x10(3)/[facility] Blood 11/01/2023 3:09 AM EDT 11/01/2023 3:29 AM EDT Narrative Resulting Agency Comment Spec In Lab Qamar Gallardo MD HEMATOLOGY ORDERABLE S [facility] [place] [address] * (ABNORMAL) Hemogram (11/01/2023 3:09 AM EDT) White Blood Cell 8.7 4.0 - 9.5 x10(3)/ L [facility] Red Blood Cell 3.72(L) 4.00 - 5.21 x10(6)/[facility] Hemoglobin 12.5 11.7 - 15.5 g/dL [facility] Hematocrit 36.8 35.7 - 45.8 % [facility] Mean Cell Volume 98.9(H) 82.6 - 94.4 fL [facility] Mean Cell Hemoglobin 33.6(H) 27.1 - 32.0 pg [facility] Mean Cell Hemoglobin Concentration 34.0 31.7 - 35.0 g/dL [facility] Platelet 184 145 - 357 x10(3)/mc L [facility] RDW Standard Deviation 53.5(H) 37.0 - 46.0 fL [facility] RDW coefficient of variation 14.6(H) 11.5 - 14.1 % [facility] Mean Platelet Volume 11.3 7.6 - 12.9 fL [facility] NRBC% auto 0.0 % [facility] NRBC Absolute 0.000 0.000 - 0.000 x10(3)/mc L [facility] Blood 11/01/2023 3:09 AM EDT 11/01/2023 3:29 AM EDT Narrative Resulting Agency Comment Spec In Lab Qamar Gallardo MD HEMATOLOGY ORDERABLE S [facility] [place] [address] * Phosphorus (11/01/2023 3:09 AM EDT) Phosphorus 2.5 2.5 - 4.5 mg/dL [facility] Blood 11/01/2023 3:09 AM EDT 11/01/2023 3:29 AM EDT Narrative Resulting Agency Comment Spec In Lab Rosa Cornejo MD CHEMISTRY ORDERABLE S [facility] [place] [address] * Magnesium (11/01/2023 3:09 AM EDT) Magnesium 0.82 0.69 - 1.07 mmol/L [facility] Blood 11/01/2023 3:09 AM EDT 11/01/2023 3:29 AM EDT Narrative Resulting Agency Comment Spec In Lab Rosa Cornejo MD CHEMISTRY ORDERABLE S [facility] [place] [address] * (ABNORMAL) Basic Metabolic Panel (non-fasting) (11/01/2023 3:09 AM EDT) Glucose 100 65 - 199 mg/dL [facility] Comment:Diabetes: >=200 mg/d L plus symptoms Blood Urea Nitrogen 14 8 - 18 mg/dL [facility] Creatinine 0.83 0.70 - 1.20 mg/dL [facility] Sodium 137 135 - 145 mmol/L [facility] Potassium 3.4(L) 3.5 - 5.0 mmol/L [facility] Comment: Please note: ??Patients with WBC >100,000 may have falsely elevated Potassium levels. ??For accurate Potassium quantification in these patients send serum separator tube (gold top) for subsequent determinations. ??Contact the Clinical Chemistry Laboratory if there are any questions. Chloride 105 98 - 107 mmol/L [facility] Carbon Dioxide 24 22 - 31 mmol/L [facility] Anion Gap 8 5 - 15 mmol/L [facility] Calcium 8.6 8.5 - 10.5 mg/dL [facility] Est Glomerular Filtration Rate 69 >=60 mL/min/1. 73 m?? [facility] Comment: This patient's estimated GFR [...] MD CHEMISTRY ORDERABLE S Performing Organization Address City/[facility]/ZIP Co de Phone Number [facility] [place] [address] * (ABNORMAL) Troponin (10/31/2023 2:46 PM EDT) Troponin-T, High Sensitivity 544(H) <=14 ng/L [facility] Comment: This patient's troponin T [...] troponin value can be found in the [facility] Test Catalog Troponin - [facility] Test Catalog Reference: Fourth [place] Definition of Myocardial Infarction. Journal of the [place] [employer] 2018;72:8483-3041 Blood 10/31/2023 2:46 PM EDT 10/31/2023 2:55 PM EDT Narrative Resulting Agency Comment Spec In Lab Jean Laboy MD CHEMISTRY ORDERABLES Performing Organization Address City/[facility]/ZIP Co de Phone Number [facility] [place] [address] * EKG 12 Lead (10/31/2023 1:07 PM EDT) Ventricular rate 54 BPM MUSE SYSTEM Atrial Rate 54 BPM MUSE SYSTEM P-R Interval 218 ms MUSE SYSTEM QRS Duration 92 ms MUSE SYSTEM Q-T Interval 540 ms MUSE SYSTEM QTC Calculated (Bezet) 512 ms MUSE SYSTEM Calculated P [place] 85 degrees MUSE SYSTEM Calculated R [place] -44 degrees MUSE SYSTEM Calculated T [place] -69 degrees MUSE SYSTEM INTERPRETATION Sinus bradycardia [...] (ABNORMAL) Troponin (10/31/2023 11:37 AM EDT) Pathologist [facility] Troponin-T, High Sensitivity 580(H) <=14 ng/L [facility] Comment: This patient's troponin T [...] troponin value can be found in the [facility] Test Catalog Troponin - [facility] Test Catalog Reference: Fourth [place] Definition of Myocardial Infarction. Journal of the [place] [employer] 2018;72:6794-5126 Blood 10/31/2023 11:3 7 AM EDT 10/31/2023 11:50 AM EDT Narrative Resulting Agency Comment Spec In Lab Rosa Cornejo MD CHEMISTRY ORDERABLE S [facility] [place] [address] * ECHO COMPLETE (10/31/2023 8:52 AM EDT) Anatomical Region Laterality Modality Cardiac Other 10/31/2023 7:57 AM EDT Narrative 10/31/2023 9:45 AM EDT [address] [place] [address] ? Echocardiogram Report Name: TOM ADIN Dorene ? Study Date: 10/31/2023 07:57 AMBP: 106/76 mmHg ? Patient Location: [address] : 1940 ? Height: 163 cm ? Account: [id number] Age: 83 yrs ? Weight: 76 kg [...] is no prior echocardiogram for comparison. Procedure Complete-26341. Satisfactory quality. There is sinus bradycardia. Left [...] V1 VTI: 23.6 cm MV E max chnace: 75.9 cm/sec MV A max chance: 94.6 [...] Note Edgard Wang MD - 10/31/2023 [address] [place] [address] Echocardiogram Report Name: ADIN SANTOS Study Date: 407:57 AMBP: 106/76 mmHg Patient Location: [address] : 1940 Height: 163 cm Account: [id number] Age: 83 yrs Weight: 76 kg Gender: [...] is no prior echocardiogram for comparison. Procedure Complete-05017. Satisfactory quality. There is sinus bradycardia. Left [...] * (ABNORMAL) Troponin (10/31/2023 8:51 AM EDT) [facility] Troponin-T, High Sensitivity 571(H) <=14 ng/L [facility] Comment: This patient's troponin T [...] troponin value can be found in the [facility] Test Catalog Troponin - [facility] Test Catalog Reference: Fourth [place] Definition of Myocardial Infarction. Journal of the [place] [employer]iology 2018;72:5126-5796 Blood 10/31/2023 8:51 AM EDT 10/31/2023 9:12 AM EDT Narrative Resulting Agency Comment Spec In Lab Rosa Cornejo MD CHEMISTRY ORDERABLE S Performing Organization Address [facility] Co de Phone Number [facility] [place] [address] * CARDIAC CATHETERIZATION (10/31/2023 8:10 AM EDT) Anatomical Region Laterality Modality Other Narrative 11/07/2023 9:42 AM EDT ?[facility] ? Cardiac Catheterization/Intervention Report ? Patient Name: Adin Santos ? Procedure Date: 10/30/2023 ? A #: [id number] ? Primary Physician: Rosa Dewey I ? Case #: [id number] ? File Name: [id number] ? Catheterization Order Number: [id number] ? [facility] ? Final Report [place], [place] ? Patient Name: ? Adin M. Goguen ?ID#: ?[id number] ? : ?1940 ? Procedure Date: ? [...] was designated as ASA Class III. The [facility] clinical frailty scale ?is 5: Mildly Frail. [...] procedure was Emergent. The indication for ?the wharf labourer visit is ACS less than or equal [...] A premounted 4.00 x 38 mm Andrea Mathews (RADHA) was deployed ? with a maximum [...] dose administered prior to arrival in the wharf labourer. ?Recommended anti-platelet/anti-thrombotic regimen: ?Continue aspirin 81 mg daily for 12 months then stop. ?Continue clopidogrel 75 mg daily for indefinitely. ?These recommendations are made at the time of the intervention. Patient ?and provider preferences or a changing clinical situation may require ?modification of this regimen. Consult [facility] [place] Interventional Cardiology for ?questions. ? Conclusions: ?* [...] Procedure Note Rosa Dewey MD - 12/05/2023 [facility] Cardiac Catheterization/Intervention Report Patient Name: Adin Santos Procedure Date: 10/30/2023 A #: [id number] Primary Physician: Rosa Dewey I Case #: [id number] File Name: [id number] Catheterization Order Number: [id number] [facility] FinalReport [place], [place] Patient Name: Adin Santos ID#:[id number] :[id number] Procedure Date: October 30, 2023 Case [...] was designated as ASA Class III. The [facility] clinical frailtyscale is 5: Mildly Frail. Diagnostic Tests: Electrocardiography: EKG was assessed by ECG. EKG was Abnormal. EKG showed STDeviation >= 0.5 mm, other abnormality and dynamic EKG changes. Medications Prior to Procedure: Aspirin, Angiotensin II Receptor Rodrick, Beta Rodrick andStatin. Indications for Diagnostic Cath: The priority of the diagnostic procedure was Emergent. Theindication for the wharf labourer visit is ACS less than or equal [...] The priority for the procedure was Emergent.The [facility] indication for the procedure was STEMI-Immediate PCI [...] A premounted 4.00 x 38 mm Andrea Mathews (RADHA) wasdeployed with a maximum inflation pressure [...] dose administered prior to arrival in the wharf labourer. Recommended anti-platelet/anti-thrombotic regimen: Continue aspirin 81 mg daily for 12 months then stop. Continue clopidogrel 75 mg daily for indefinitely. These recommendations are made at the time of the intervention.Patient and provider preferences or a changing clinical situation mayrequire modification of this regimen. Consult [facility] [place] [place] Interventional Cardiologyfor questions. Conclusions: * Two vessel [...] * (ABNORMAL) Troponin (10/31/2023 4:21 AM EDT) [facility] Troponin-T, High Sensitivity 457(H) <=14 ng/L [facility] Comment: This patient's troponin T [...] troponin value can be found in the [facility] Test Catalog Troponin - [facility] Test Catalog Reference: Fourth [place] Definition of Myocardial Infarction. Journal of the [place] [employer] 2018;72:8385-3012 Blood 10/31/2023 4:21 AM EDT 10/31/2023 4:30 AM EDT Narrative Resulting Agency Comment Spec In Lab Rosa Cornejo MD CHEMISTRY ORDERABLE S Performing Organization Address City/State/[facility] Co de Phone Number [facility] [place] [address] * (ABNORMAL) Differential, Automated (10/31/2023 3:05 AM EDT) Neutrophil % 71.7 % [facility] Neutrophil Absolute 8.21(H) 1.70 - 6.10 x10(3)/mc L [facility] Lymph % 16.9 % [facility] Lymphocytes Abs 1.9 0.9 - 3.2 x10(3)/mc L [facility] Monocyte % 9.4 % [facility] Monocyte Abs 1.1(H) 0.3 - 0.9 x10(3)/mc L [facility] Eos % 1.3 % [facility] Eosinophils Abs 0.2 0.0 - 0.4 x10(3)/mc L [facility] Basophil % 0.4 % [facility] Baso Absolute 0.0 0.0 - 0.1 x10(3)/mc L [facility] Immature Gran % 0.30 % [facility] Comment: Immature granulocytes(IG's)percentage and absolute count will include metamyelocytes, myelocytes, and promyelocytes. Blood smears from CBCs yielding IG's will be scanned manually for concordance. If this scan disagrees with the automated IG or if promyelocytes are noted, a manual differential will be performed. Immature Gran Absolute 0.04 0.00 - 0.04 x10(3)/ L [facility] Blood 10/31/2023 3:05 AM EDT 10/31/2023 3:13 AM EDT Narrative Resulting Agency Comment Spec In Lab Qamar Gallardo MD HEMATOLOGY ORDERABLE S [facility] [place] [address] * (ABNORMAL) Hemogram (10/31/2023 3:05 AM EDT) White Blood Cell 11.5(H) 4.0 - 9.5 x10(3)/ L [facility] Red Blood Cell 3.75(L) 4.00 - 5.21 x10(6)/mc L [facility] Hemoglobin 12.6 11.7 - 15.5 g/dL [facility] Hematocrit 37.1 35.7 - 45.8 % [facility] Mean Cell Volume 98.9(H) 82.6 - 94.4 fL [facility] Mean Cell Hemoglobin 33.6(H) 27.1 - 32.0 pg [facility] Mean Cell Hemoglobin Concentration 34.0 31.7 - 35.0 g/dL [facility] Platelet 206 145 - 357 x10(3)/mc L [facility] RDW Standard Deviation 53.4(H) 37.0 - 46.0 fL [facility] RDW coefficient of variation 14.6(H) 11.5 - 14.1 % [facility] Mean Platelet Volume 11.1 7.6 - 12.9 fL [facility] NRBC% auto 0.0 % [facility] NRBC Absolute 0.000 0.000 - 0.000 x10(3)/mc L [facility] Blood 10/31/2023 3:05 AM EDT 10/31/2023 3:13 AM EDT Narrative Resulting Agency Comment Spec In Lab Qamar Gallardo MD HEMATOLOGY ORDERABLE S Performing Organization Address [facility] de Phone Number [facility] [place] [address] * (ABNORMAL) APTT (10/31/2023 3:05 AM EDT) Partial Thromboplastin Time 67(H) 25 - 37 sec [facility] Comment: The PTT is NOT appropriate for heparin monitoring. Use the Anti-Xa level for heparin monitoring (HEP UFH) or LMWH monitoring (HEP LMW). A PTT less than 37 seconds generally indicates adequate hemostasis. Blood 10/31/2023 3:05 AM EDT 10/31/2023 3:13 AM EDT Narrative Resulting Agency Comment Spec In Lab Rosa Cornejo MD HEMATOLOGY ORDERABL ES Performing Organization Address [facility] de Phone Number [facility] [place] [address] * (ABNORMAL) Prothrombin Time (10/31/2023 3:05 AM EDT) Prothrombin Time 12.6(H) 9.4 - 12.5 sec [facility] International Normalization Ratio 1.1 [facility] Comment: An INR <2.0 indicates [...] Lab Rosa Cornejo MD HEMATOLOGY ORDERABL ES [facility] [place] [address] * (ABNORMAL) Differential, Automated (10/31/2023 1:37 AM EDT) Neutrophil % 71.1 % [facility] Neutrophil Absolute 7.53(H) 1.70 - 6.10 x10(3)/mc L [facility] Lymph % 18.0 % [facility] Lymphocytes Abs 1.9 0.9 - 3.2 x10(3)/ L [facility] Monocyte % 8.7 % [facility] Monocyte Abs 0.9 0.3 - 0.9 x10(3)/mc L [facility] Eos % 1.6 % [facility] Eosinophils Abs 0.2 0.0 - 0.4 x10(3)/mc L [facility] Basophil % 0.4 % [facility] Baso Absolute 0.0 0.0 - 0.1 x10(3)/mc L [facility] Immature Gran % 0.20 % [facility] Comment: Immature granulocytes(IG's)percentage and absolute count will include metamyelocytes, myelocytes, and promyelocytes. Blood smears from CBCs yielding IG's will be scanned manually for concordance. If this scan disagrees with the automated IG or if promyelocytes are noted, a manual differential will be performed. Immature Gran Absolute 0.02 0.00 - 0.04 x10(3)/mc L [facility] Blood 10/31/2023 1:37 AM EDT 10/31/2023 1:46 AM EDT Narrative Resulting Agency Comment Spec In Lab Qamar Gallardo MD HEMATOLOGY ORDERABLE S [facility] [place] [address] * (ABNORMAL) Hemogram (10/31/2023 1:37 AM EDT) White Blood Cell 10.6(H) 4.0 - 9.5 x10(3)/mc L [facility] Red Blood Cell 3.78(L) 4.00 - 5.21 x10(6)/mc L [facility] Hemoglobin 13.0 11.7 - 15.5 g/dL [facility] Hematocrit 37.9 35.7 - 45.8 % [facility] Mean Cell Volume 100.3(H) 82.6 - 94.4 fL [facility] Mean Cell Hemoglobin 34.4(H) 27.1 - 32.0 pg [facility] Mean Cell Hemoglobin Concentration 34.3 31.7 - 35.0 g/dL [facility] Platelet 204 145 - 357 x10(3)/mc L [facility] RDW Standard Deviation 54.3(H) 37.0 - 46.0 fL [facility] RDW coefficient of variation 14.6(H) 11.5 - 14.1 % [facility] Mean Platelet Volume 11.1 7.6 - 12.9 fL [facility] NRBC% auto 0.0 % [facility] NRBC Absolute 0.000 0.000 - 0.000 x10(3)/mc L [facility] Blood 10/31/2023 1:37 AM EDT 10/31/2023 1:46 AM EDT Narrative Resulting Agency Comment Spec In Lab Qamar Gallardo MD HEMATOLOGY ORDERABLE S [facility] [place] [address] * Phosphorus (10/31/2023 1:37 AM EDT) Phosphorus 3.2 2.5 - 4.5 mg/dL [facility] Blood 10/31/2023 1:37 AM EDT 10/31/2023 1:46 AM EDT Narrative Resulting Agency Comment Spec In Lab Rosa Cornejo MD CHEMISTRY ORDERABLE S Performing Organization Address City/[facility]/ZIP Co de Phone Number [facility] [place] [address] * Magnesium (10/31/2023 1:37 AM EDT) Magnesium 0.83 0.69 - 1.07 mmol/L [facility] Blood 10/31/2023 1:37 AM EDT 10/31/2023 1:46 AM EDT Narrative Resulting Agency Comment Spec In Lab Rosa Cornejo MD CHEMISTRY ORDERABLE S Performing Organization Address City/[facility]/ZIP Co de Phone Number [facility] [place] [address] * Basic Metabolic Panel (non-fasting) (10/31/2023 1:37 AM EDT) Glucose 114 65 - 199 mg/dL [facility] Comment:Diabetes: >=200 mg/d L plus symptoms Blood Urea Nitrogen 13 8 - 18 mg/dL [facility] Creatinine 0.81 0.70 - 1.20 mg/dL [facility] Sodium 140 135 - 145 mmol/L [facility] Potassium 3.9 3.5 - 5.0 mmol/L [facility] Comment: Please note: ??Patients with WBC >100,000 may have falsely elevated Potassium levels. ??For accurate Potassium quantification in these patients send serum separator tube (gold top) for subsequent determinations. ??Contact the Clinical Chemistry Laboratory if there are any questions. Chloride 107 98 - 107 mmol/L [facility] Carbon Dioxide 25 22 - 31 mmol/L [facility] Anion Gap 8 5 - 15 mmol/L [facility] Calcium 8.6 8.5 - 10.5 mg/dL [facility] Est Glomerular Filtration Rate 72 >=60 mL/min/1. 73 m?? [facility] Comment: This patient's estimated GFR [...] Lab Rosa Cornejo MD CHEMISTRY ORDERABLE S [facility] [place] [address] * (ABNORMAL) Troponin (10/31/2023 1:37 AM EDT) Troponin-T, High Sensitivity 329(H) <=14 ng/L [facility] Comment: This patient's troponin T [...] troponin value can be found in the [facility] Test Catalog Troponin - [facility] Test Catalog Reference: Fourth [place] Definition of Myocardial Infarction. Journal of the [place] [employer] 2018;72:0650-2950 Blood 10/31/2023 1:37 AM EDT 10/31/2023 1:46 AM EDT Narrative Resulting Agency Comment Spec In Lab Rosa Cornejo MD CHEMISTRY ORDERABLE S Performing Organization Address City/[facility]/[place] [address] * EKG 12 Lead (10/31/2023 1:20 AM EDT) Ventricular rate 52 BPM MUSE SYSTEM Atrial Rate 52 BPM MUSE SYSTEM P-R Interval 224 ms MUSE SYSTEM QRS Duration 108 ms MUSE SYSTEM Q-T Interval 544 ms MUSE SYSTEM QTC Calculated (Bezet) 505 ms MUSE SYSTEM Calculated P [place] 90 degrees MUSE SYSTEM Calculated R [place] -57 degrees MUSE SYSTEM Calculated T [place] -63 degrees MUSE SYSTEM INTERPRETATION Sinus bradycardia with 1st degree A-V block Pulmonary disease pattern Left anterior fascicular block Moderate voltage criteria for LVH, may be normal variant ( R in aVL , Harvey product ) T wave abnormality, consider inferior [...] (Bezet) 497 ms MUSE SYSTEM Calculated P [place] 75 degrees MUSE SYSTEM Calculated R [place] -53 degrees MUSE SYSTEM Calculated T [place] -57 degrees MUSE SYSTEM INTERPRETATION Sinus bradycardia with 1st degree A-V block Left anterior fascicular block Moderate voltage criteria for LVH, may be normal variant ( R in aVL , Harvey product ) T wave abnormality, consider inferior [...] View (10/30/2023 10:10 PM EDT) WORKSTATION ID [id number] DH RAD Anatomical Region Laterality Modality Chest [...] and low lung volumes. Findings similar to flight engineer instructor radiograph from CT 10/30/2023. Thank you for letting us participate in the care of this patient. ??If you are a health care provider and have any questions regarding this report, please contact the number below. ??For patients who have questions please contact the health caregivers homecare that requested your imaging first. ? Electronically signed by: Wilson Mccartney MD, [facility] ([phone]), at 10/30/2023 10:32 PM Narrative 10/30/2023 10:32 [...] and low lung volumes. Findings similar to flight engineer instructor radiograph from CT 10/30/2023. Thank you for letting us participate in the care of this patient. If youare a health care provider and have any questions regarding this report,please contact the number below. For patients who have questions please contactthe health caregivers homecare that requested your imaging first. Rosa Cornejo MD IMG DX ORDERABLES * Green Tube HOLD (10/30/2023 10:05 PM EDT) [facility] Green Hold Sample in lab. [facility] Blood Venous Draw / Unknown 10/30/2023 10:05 PM EDT 10/30/2023 10:13 PM EDT Qamar Gallardo MD CHEMISTRY ORDERABLES [facility] [place] [address] * (ABNORMAL) Differential, Automated (10/30/2023 10:05 PM EDT) Pathologist [facility] Neutrophil % 76.6 % [facility] Neutrophil Absolute 6.94(H) 1.70 - 6.10 x10(3)/mc L [facility] Lymph % 15.4 % [facility] Lymphocytes Abs 1.4 0.9 - 3.2 x10(3)/mc L [facility] Monocyte % 6.1 % [facility] Monocyte Abs 0.6 0.3 - 0.9 x10(3)/mc L [facility] Eos % 1.1 % [facility] Eosinophils Abs 0.1 0.0 - 0.4 x10(3)/mc L [facility] Basophil % 0.6 % [facility] Baso Absolute 0.0 0.0 - 0.1 x10(3)/mc L [facility] Immature Gran % 0.20 % [facility] Comment: Immature granulocytes(IG's)percentage and absolute count will include metamyelocytes, myelocytes, and promyelocytes. Blood smears from CBCs yielding IG's will be scanned manually for concordance. If this scan disagrees with the automated IG or if promyelocytes are noted, a manual differential will be performed. Immature Gran Absolute 0.02 0.00 - 0.04 x10(3)/ L [facility] Blood 10/30/2023 10:0 5 PM EDT 10/30/2023 10:12 PM EDT Narrative Resulting Agency Comment Spec In Lab Qamar Gallardo MD HEMATOLOGY ORDERABLE S Performing Organization Address City/State/[facility] Co de Phone Number [facility] [place] [address] * (ABNORMAL) Hemogram (10/30/2023 10:05 PM EDT) White Blood Cell 9.0 4.0 - 9.5 x10(3)/ L [facility] Red Blood Cell 3.96(L) 4.00 - 5.21 x10(6)/mc L [facility] Hemoglobin 13.3 11.7 - 15.5 g/dL [facility] Hematocrit 39.1 35.7 - 45.8 % [facility] Mean Cell Volume 98.7(H) 82.6 - 94.4 fL [facility] Mean Cell Hemoglobin 33.6(H) 27.1 - 32.0 pg [facility] Mean Cell Hemoglobin Concentration 34.0 31.7 - 35.0 g/dL [facility] Platelet 211 145 - 357 x10(3)/mc L [facility] RDW Standard Deviation 53.6(H) 37.0 - 46.0 fL [facility] RDW coefficient of variation 14.6(H) 11.5 - 14.1 % [facility] Mean Platelet Volume 11.1 7.6 - 12.9 fL [facility] NRBC% auto 0.0 % [facility] NRBC Absolute 0.000 0.000 - 0.000 x10(3)/mc L [facility] Blood 10/30/2023 10:0 5 PM EDT 10/30/2023 10:12 PM EDT Narrative Resulting Agency Comment Spec In Lab Qamar Gallardo MD HEMATOLOGY ORDERABLE S Performing Organization Address City/[facility]/ZIP Co de Phone Number [facility] [place] [address] * Hemoglobin A1c (10/30/2023 10:05 PM EDT) Hemoglobin A1c 5.5 4.3 - 5.6 % [facility] Comment: Reference Range: 4.3 - [...] [id number] Estimated Average Glucose See note mg/dL [facility] Comment: Estimated Average Glucose not appropriate for patients over 70 years of age. Blood 10/30/2023 10:0 5 PM EDT 10/30/2023 10:12 PM EDT Narrative Resulting Agency Comment Spec In Lab Rosa Cornejo MD CHEMISTRY ORDERABLE S [facility] [place] [address] * Lipid Panel (Reflex Direct LDL) (10/30/2023 10:05 PM EDT) [facility] Cholesterol, Total 218 mg/dL [facility] Comment: Desirable: ? <200 mg/dL Borderline High: 200-239 mg/dL Higher: ?>ox=123 mg/dL Triglyceride 46 mg/dL [facility] Comment: Normal: ?<150 mg/dL Borderline High: 150-199 mg/dL High: ?200-499 mg/dL Very High: ? >jj=738 mg/dL HDL Cholesterol 64 mg/dL [facility] Comment: Females: High Risk: <50 mg/dL Males: High Risk: <40 mg/dL LDL Cholesterol 145 mg/dL [facility] Comment: Desirable: ? <100 mg/dL Above Desirable: 100-129 mg/dL Borderline High: 130-159 mg/dL High: ?160-189 mg/dL Very High: ? >gc=916 mg/dL Lipid Interpretation See Note [facility] Comment: It is important to [...] individuals with atherosclerotic cardiovascular disease (ASCVD)or LDL >qy=964 mg/dL, use a high-intensity statin (40-80 mg [...] MD CHEMISTRY ORDERABLE S Performing Organization Address [facility] Co de Phone Number [facility] [place] [address] * TSH [place] (10/30/2023 10:05 PM EDT) Thyroid Stimulating Hormone 3.35 0.27 - 4.20 mcIU/mL [facility] Comment: Reference Interval (mcIU/mL): Females: ??First Trimester: 0.23-3.88 ??Second Trimester: 0.22-3.90 ??Third Trimester: 0.44-4.66 Blood 10/30/2023 10:0 5 PM EDT 10/30/2023 10:12 PM EDT Narrative Resulting Agency Comment Spec In Lab Rosa Cornejo MD CHEMISTRY ORDERABLE S Performing Organization Address [facility]/ZIP Co de Phone Number [facility] [place] [address] * pro-Brain Natriuretic Peptide (10/30/2023 10:05 PM EDT) NT-proBNP 375 <=449 pg/mL [facility] Blood 10/30/2023 10:0 5 PM EDT 10/30/2023 10:12 PM EDT Narrative Resulting Agency Comment Spec In Lab Rosa Cornejo MD CHEMISTRY ORDERABLE S [facility] [place] [address] * (ABNORMAL) Comprehensive metabolic panel (non-fasting) (10/30/2023 10:05 PM EDT) Pathologist [facility] Glucose 121 65 - 199 mg/dL [facility] Comment:Diabetes: >=200 mg/d L plus symptoms Blood Urea Nitrogen 14 8 - 18 mg/dL [facility] Creatinine 0.85 0.70 - 1.20 mg/dL [facility] Sodium 142 135 - 145 mmol/L [facility] Potassium 3.9 3.5 - 5.0 mmol/L [facility] Comment: Please note: ??Patients with WBC >100,000 may have falsely elevated Potassium levels. ??For accurate Potassium quantification in these patients send serum separator tube (gold top) for subsequent determinations. ??Contact the Clinical Chemistry Laboratory if there are any questions. Chloride 105 98 - 107 mmol/L [facility] Carbon Dioxide 27 22 - 31 mmol/L [facility] Anion Gap 10 5 - 15 mmol/L [facility] Calcium 8.8 8.5 - 10.5 mg/dL [facility] Protein, Total 6.5 6.1 - 8.0 g/dL [facility] Albumin 4.2 3.2 - 5.2 g/dL [facility] Aspartate Aminotransferase 36(H) 0 - 30 unit/L [facility] Alanine Aminotransferase 17 0 - 30 unit/L [facility] Alkaline Phosphatase 54 35 - 105 unit/L [facility] Bilirubin, Total 0.5 0.2 - 1.3 mg/dL [facility] Est Glomerular Filtration Rate 68 >=60 mL/min/1. 73 m?? [facility] Comment: This patient's estimated GFR [...] MD CHEMISTRY ORDERABLE S Performing Organization Address City/[facility]/ZIP Co de Phone Number [facility] [place] [address] * Phosphorus (10/30/2023 10:05 PM EDT) Phosphorus 3.3 2.5 - 4.5 mg/dL [facility] Blood 10/30/2023 10:0 5 PM EDT 10/30/2023 10:12 PM EDT Narrative Resulting Agency Comment Spec In Lab Rosa Cornejo MD CHEMISTRY ORDERABLE S [facility] [place] [address] * Magnesium (10/30/2023 10:05 PM EDT) Magnesium 0.86 0.69 - 1.07 mmol/L [facility] Blood 10/30/2023 10:0 5 PM EDT 10/30/2023 10:12 PM EDT Narrative Resulting Agency Comment Spec In Lab Rosa Cornejo MD CHEMISTRY ORDERABLE S Performing Organization Address City/[facility]/ZIP Co de Phone Number [facility] [place] [address] * (ABNORMAL) Troponin (10/30/2023 10:05 PM EDT) Troponin-T, High Sensitivity 214(H) <=14 ng/L [facility] Comment: This patient's troponin T [...] troponin value can be found in the [facility] Test Catalog Troponin - [facility] Test Catalog Reference: Fourth [place] Definition of Myocardial Infarction. Journal of the [place] [employer] 2018;72:8340-8337 Blood 10/30/2023 10:0 5 PM EDT 10/30/2023 10:12 PM EDT Narrative Resulting Agency Comment Spec In Lab Rosa Cornejo MD CHEMISTRY ORDERABLE S Performing Organization Address City/[facility]/ZIP Co de Phone Number [facility] [place] [address] * EKG 12 Lead (10/30/2023 8:21 PM EDT) Ventricular rate 49 BPM MUSE SYSTEM Atrial Rate 49 BPM MUSE SYSTEM P-R Interval 230 ms MUSE SYSTEM QRS Duration 96 ms MUSE SYSTEM Q-T Interval 526 ms MUSE SYSTEM QTC Calculated (Bezet) 475 ms MUSE SYSTEM Calculated P [place] 98 degrees MUSE SYSTEM Calculated R [place] -48 degrees MUSE SYSTEM Calculated T [place] -51 degrees MUSE SYSTEM INTERPRETATION Sinus bradycardia with 1st degree A-V block Incomplete right bundle branch block Left anterior fascicular block Moderate voltage criteria for LVH, may be normal variant ( R in aVL , Harvey product ) T wave abnormality, consider inferior [...] - Reason: Transfer to a Procedural area)1548 ([facility] Unhold - Provider: Admin Adt) [id number] [...] - Reason: Transfer to a Procedural area)1548 ([facility] Unhold - Provider: Admin Adt) midazolam [...] documented as of this encounter Care Teams Advertiser Relationship Specialty Start Date End Date Rosie Mathews MD [address] [place] [id number] PCP - General Family Medicine 11/25/17 11/23/23 documented as of this encounter
--- OUTSIDE RECORDS SUMMARY | 2024-02-10 10:23 | XMS_ITS | Encounter Summary ---
Author Organization [facility] [place] [address] Care Team Providers Care Cargo Surveyor Name Role Phone Rosie Mathews MD Primary Care Provider [phone] Encounter Details Date Type Department Care Team (Late st Contact Info) Description 10/30/2023 5:00 PM EDT Ancillary Procedure [place] [id number] Izaiah Meyer MD [facility] [place] [address] Social History Tobacco Use Types Packs/Day Years Used Date Smoking Tobacco: Former Smokeless Tobacco: Never Alcohol Use Standard Drinks/Week Comments Not Currently 0 (1 standard drink = 0.6 oz pur e alcohol) [facility] Inpatient Questions Answer Date Recorded Does Anyone [...] AM EDT Office Visit Cardiology at [address] [place] [address] Izaiah Meyer MD [facility] [place] [address] documented as of this encounter Procedures Procedure Name Priority Date/Time Associated Diagnosis Comments FILM LIBRARY STORAGE ONLY CT CHEST Routine 10/30/2023 4:59 PM EDT documented in this encounter Results * Film Library- Storage Only CT Chest (10/30/2023 4:59 PM EDT) Narrative [facility] 10/30/2023 4:59 PM EDT This exam is auto-finalizing. It's purpose is for storage only. Izaiah Meyer MD IMG FILM LIBRARY ORD ERABLES Performing Organization Address City/State/[facility] Co de Phone Number [place], [place] documented in this encounter Visit Diagnoses Not on filedocumented in this encounter Care Teams Cargo Surveyor Relationship Specialty Start Date End Date Rosie Mathews MD [address] [place] [address] PCP - General Family Medicine 11/25/17 11/23/23 documented as of this encounter
--- OUTSIDE RECORDS SUMMARY | 2024-02-10 10:23 | XMS_ITS | Encounter Summary ---
Author Organization [facility] [place] [address] Care Team Providers Care Irish Moss Bleacher Name Role Phone Rosie Mathews MD Primary Care Provider [phone] Reason for Visit * Auth/Cert (Routine) Specialty Diagnoses / Procedures Referred By Contac t Referred To Contact Diagnoses Unstable angina Procedures [facility] [employer] [facility] Referral ID Status Reason Start Date Expiration Date Visits Re quested Visits Authorized [id number] 1 1 Encounter Details Date Type Department Care Team (Latest Contact Info) Description 10/30/2023 5:00 PM EDT - 10/30/2023 5:10 PM EDT Hospital Encounter [place] [phone] Rosa Menjivar MD [facility] [place] [address] Discharge Disposition: Home Social History Tobacco Use Types Packs/Day Years Used Date Smoking Tobacco: Former Smokeless Tobacco: Never Alcohol Use Standard Drinks/Week Comments Not Currently 0 (1 standard drink = 0.6 oz pur e alcohol) [facility] Inpatient Questions Answer Date Recorded Does [...] 11:20 AM EDT Office Visit Cardiology at [address] [place] [address] Izaiah Meyer MD [facility] [place] [address] documented as of this encounter Visit Diagnoses Not on filedocumented in this encounter Care Teams Irish Moss Bleacher Relationship Specialty Start Date End Date Rosie Mathews MD [address] [place] [address] PCP - General Family Medicine 11/25/17 11/23/23 documented as of this encounter
--- OUTSIDE RECORDS SUMMARY | 2024-02-10 10:24 | XMS_ITS | Encounter Summary ---
Author Organization [facility] Address [facility] [place] [address] Care Team Providers Care Retail Grocer Name Role Phone Rosie Mathews MD Primary Care Provider [phone] Reason for Visit * Consultation (Routine) - Closed Specialty Diagnoses / Procedures Referred By John hunt Referred To Contact Audiology Diagnoses Hearing assessment and treatment options Karson John MD [address] [place] [address] [facility] Audiology [address] [place] [phone] Referral ID Status Reason Start Date Expiration Date V isits Requested Visits Authorized [id number] Closed Consult, Test & Treat Connection Center 11/22/2017 11/22/2018 1 1 Encounter Details Date Type Department Care Team (Latest Contact Info) Description 11/30/2017 3:15 PM EDT Office Visit Audiology at [address] [address] Georgette Onofre AUD [facility] [place] [address] Sensorineural hearing loss, bilateral; Bilateral [...] 10-15 years. Ms. Goodrich obtained binaural [facility] in-the-ear hearingaids nine years ago in [place], [place]. She stated she continues to experience [...] tone audiogram. SNR loss is the increased llkzas-qj-lvmez ratio required by an individual to understand [...] not hesitate to contact this Section at [phone] if there are questions regarding this report or its recommendations. Romeo Becker [place] [id number] Attachment: audiogram CC: MD Karson Loo MD Laurmarco a Catherine Edvinjonatanjosue [facility] [address] [place] [phone] documented in this encounter Plan of Treatment Upcoming Encounters Date Type Department Care Team (Late st Contact Info) Description 03/29/2024 11:20 AM EDT Office Visit Cardiology at [address] [place] [address] Izaiah Meyer MD [facility] [place] [address] documented as of this encounter Procedures Procedure [...] tinnitus documented in this encounter Care Teams Retail Grocer Relationship Specialty Start Date End Date Rosie Mathews MD [address] [place] [id number] PCP - General Family Medicine 11/25/17 11/23/23 documented as of this encounter
--- OUTSIDE RECORDS SUMMARY | 2024-02-10 10:24 | XMS_ITS | Encounter Summary ---
Author Organization [facility] Address [facility] [place] [address] Care Team Providers Care Security System Engineer Name Role Phone Rosie Mathews MD Primary Care Provider [phone] Encounter Details Date Type Department Care Team (Late st Contact Info) Description 10/30/2023 [place] [address] Jose Lee MD [facility] [place] [address] Social History Tobacco Use Types Packs/Day Years [...] Date: 10/30/2023 Referring Provider: Bree Patient Location: [facility] HPI: 83 yoF w/ PMHx of [...] in the patient condition. Jose Lee MD Window Treatment Installer documented in this encounter Plan of Treatment Upcoming Encounters Date Type Department Care Team (Late st Contact Info) Description 03/29/2024 11:20 AM EDT Office Visit Cardiology at [address] [place] [address] Izaiah Meyer MD [facility] [place] [address] documented as of this encounter Visit Diagnoses Not on filedocumented in this encounter Care Teams Security System Engineer Relationship Specialty Start Date End Date Rosie Mathews MD [address] [place] [address] PCP - General Family Medicine 11/25/17 11/23/23 documented as of this encounter
--- OUTSIDE RECORDS SUMMARY | 2024-02-10 10:24 | XMS_ITS | Referral Summary ---
Author Organization [facility] Address [address] [place] [address] Care Team Providers Care Hawk Missile Air Defense Artillery Name Role Phone Kirsten Bateman MD Primary Care Provider [phone] Allergies Active Allergy Reactions Criticality Noted Date [...] of Treatment Not on file Care Teams Hawk Missile Air Defense Artillery Relationship Specialty Start Date End Date Kirsten Bateman MD [address] [place] [address] [facility] - General 01/13/10
--- OUTSIDE RECORDS SUMMARY | 2024-02-10 10:24 | XMS_ITS | Encounter Summary ---
Author Organization [facility] Address [address] [place] [address] Care Team Providers Care Network Project Manager Name Role Phone Kirsten Bateman MD Primary Care Provider [phone] Encounter Details Date Type Department Care Team (Late st Contact Info) Description 01/27/2021 Lab Requisition [facility] [address] [place] [address] Outr Resulting Lab, Provider Social History Tobacco [...] Outr Resulting Lab MICROBIOLOGY - GENERAL ORDERABLES [facility] [address] [place] [address] * COVID-19 TESTING (01/26/2021 16:45 EDT) COVID-19 rt-PCR Result Negative Negative 01/28/2021 13:31 EDT [facility] Comment: This test has [...] developed and its performance characteristics determined by [facility]. It has not been cleared or approved [...] testing. This test is based on the [facility] COVID-19 Emergency Use Authorization (EUA) assay, with minor modification as defined by the FDA Performed on the Jade Magneto 7 Pro RT-PCR System. Performing Lab [facility] 01/28/2021 13:31 EDT [facility] Swab 01/26/2021 16:4 5 EDT 01/27/2021 15:46 EDT Provider Outr Resulting Lab MICROBIOLOGY - GENERAL ORDERABLES [facility] [address] [place] [address] documented in this encounter Visit Diagnoses Not on filedocumented in this encounter Care Teams Network Project Manager Relationship Specialty Start Date End Date Kirsten Bateman MD [address] [place] [address] PCP - General 01/13/10 documented as of this encounter
--- OUTSIDE RECORDS SUMMARY | 2024-02-10 10:24 | XMS_ITS | Encounter Summary ---
Author Organization [facility] Address [facility] [place] [address] Care Team Providers Care Revenue Officer Name Role Phone Rosie Mathews MD Primary Care Provider [phone] Encounter Details Date Type Department Care Team (Late st Contact Info) Description 10/30/2023 External Results Transfer Center [facility] [place] [address] Social History Tobacco Use Types Packs/Day Years Used Date Smoking Tobacco: Former Smokeless Tobacco: Never Alcohol Use Standard Drinks/Week Comments Not Currently 0 (1 standard drink = 0.6 oz pur e alcohol) [facility] Utilities Answer Date Recorded In the past 12 months has e [employer], gas, oil, or water [employer] threatened to shut off services in your [...] 11:20 AM EDT Office Visit Cardiology at [address] [address] Izaiah Meyer MD [facility] [place] [address] documented as of this encounter Procedures Procedure [...] on filedocumented in this encounter Care Teams Revenue Officer Relationship Specialty Start Date End Date Rosie Mathews MD [address] [place] [address] PCP - General Family Medicine 11/25/17 11/23/23 documented as of this encounter
--- OUTSIDE RECORDS SUMMARY | 2024-02-10 10:24 | XMS_ITS | Encounter Summary ---
Author Organization [facility] Address [address] [place] [address] Care Team Providers Care Warp Hauler Name Role Phone Kirsten Bateman MD Primary Care Provider [phone] Reason for Visit * Reason Comments Hearing Loss tinnitus Encounter Details Date Type Department Care Team (Latest Contact Info) Description 01/15/2010 10:10 EDT Office Visit [address] [address] Unknown, ProviderMD Ray Farooq MD [address] [place] [address] [address] Sensorineural hearing loss, bilateral; Subjective [...] Ray Farooq MD - 01/28/2010 1108 EDT [facility] PROGRESS/FOLLOWUP NOTE - 01/15/2010 CHIEF COMPLAINT: [...] Farooq MD - Ray Farooq MD - [facility] Job ID: SM Doc ID: [id number] Ext Doc ID: [id number] cc: Kirsten Bateman MD * Ray Farooq [...] tinnitus documented in this encounter Care Teams Warp Hauler Relationship Specialty Start Date End Date Kirsten Bateman MD [address] [place] [address] PCP - General 01/13/10 documented as of this encounter
--- OUTSIDE RECORDS SUMMARY | 2024-02-10 10:24 | XMS_ITS | Encounter Summary ---
Author Organization [facility] [place] [address] Care Team Providers Care Technical Staff Engineer Name Role Phone Rosie Mathews MD Primary Care Provider [phone] Reason for Visit * Auth/Cert (Routine) Specialty Diagnoses / Procedures Referred By Contac t Referred To Contact Diagnoses Unstable angina Chest pain NSTEMI Procedures CARDIAC CATHETERIZATION Rosa Dewey MD [facility] [place] [address] [facility] Referral ID Status Reason Start Date Expiration Date Visits Re quested Visits Authorized [id number] 1 1 Encounter Details Date Type Department Care Team (Late st Contact Info) Description 10/30/2023 4:25 PM EDT - 10/30/2023 5:27 PM [place] [address] Rosa Dewey MD [facility] [address] [place], [place] [id number] CARDIAC CATHETERIZATION Social History Tobacco Use Types Packs/Day Years Used Date Smoking Tobacco: Former Smokeless Tobacco: Never Alcohol Use Standard Drinks/Week Comments Not Currently 0 (1 standard drink = 0.6 oz pur e alcohol) [facility] Inpatient Questions Answer Date Recorded Does Anyone [...] for hypertension and hyperlipidemia who presented to [facility] as a transfer from [facility] as a possible STEMI alert with acute onset chest pain. The patient reports that her symptoms initially began on Tuesday when she was walking to [facility] and experienced bilateral arm heaviness while walking with no other symptoms. Then, this afternoon shereports developing bilateral achy shoulder pain and nonradiating substernal left-sided chest pressure that was 7/10 in severity after coming [facility] from [facility]. The patient denies any associated fevers, chills, diaphoresis, lightheadedness/dizziness, syncope/presyncope, dyspnea (either at rest or on exertion), palpitations, orthopnea, or PND. The patient subsequently presented to [facility] as a walk-in for further [...] on repeat, her JAMIE resolved. Cardiology at [facility] was consulted for transfer; the patient was loaded with aspirin 324 mg and ticagrelor 180 mg, started on a heparin drip, and given nitroglycerin with improvement in chest pain. Upon arrival to [facility], the patient was taken directly to the Boat Cleaner. Two lesions were discovered: one in the prox RCA (felt to almost be a NEUROLOGICAL PHYSIOTHERAPIST but they were able to wire, balloon, [...] dose administered prior to arrival in the cardiac cath tech. Recommended anti-platelet/anti-thrombotic regimen: Continue aspirin 81 mg [...] and low lung volumes. Findings similar to fashion show director radiograph from CT 10/30/2023. Pending Studies and [...] 10:40 AM Izaiah Meyer MD Cardiology at [place] Arrive at: [facility] [address] [phone] Future Orders Complete By Expires Referral to Cardiac Rehab [[id number] Custom] As directed Process Instructions: If no progress note charted, please enter Clinical details in comments. Scheduling Instructions: Questions: My question or request is: STEMI. Cardiac rehab at [facility]. Referral to Home Health [[id number] Custom] As directed Process Instructions: If no progress note charted, please enter Clinical details in comments. Scheduling Instructions: Comments: Please evaluate Adin Santos for admission to Home Health. [address] [place] [address] [place] [phone] (home) Date of : 1940 Inpatient DOCUMENTATION FOR VNA SERVICES (INCLUDING THOSE PATIENTS WITH MEDICARE COVERAGE REQUIRING HOME VNA SERVICES AND/OR HOSPICE SERVICES) PATIENT'S LOCATION: Adin Santos [address] [facility] [phone] (home) Cell: Telephone Information: Cigarette Packing Machine Operator's Name: self In discussion with the attending physician, it is certified that this patient is under their care and that they, or a Nurse Practitioner, Clinical Nurse specialist or Physician Lard Bleacher who is working directly with them, had [...] regarding health issues HOME HEALTH CARE AGENCY: [facility] [address] [place] [address] START OF CARE: within 24-48 hours of [...] Rosie Mathews MD [address] / [facility] [address] . All A agencies which cover the [...] MD / Dr. Masood Pierson [address] [place] [address] 11/09/23 1:55 PM arrival for 2:10 PM appointment Montessori Preschool Teacher: Izaiah Meyer MD [address] [place] [address] , 11/24/2023 10:40 AM Your Inpatient Medical Team at [facility] Name(s) of your inpatient provider(s): Attending physician: Rosa Hugo MD Resident physicians: Emile Robles MD; Elmer Tamez MD If you have non-emergent questions, prior to your follow-up visit call: Tuesday-Tuesday between the hours of 8AM-5PM please call the Cardiology Clinic [phone] to speak with a nurse. All other hours please call the Hospital Coater Helper [phone] and ask to speak to the plywood layup line core feeder on-call. Your Primary Care Provider Rosie Mathews MD [phone] For questions regarding this document or issues relating to this hospitalization on the Medical Service, please contact your inpatient physician through the [facility] Coater Helper . Issues afterhours and on weekends will be handled by the Montessori Preschool Teacher staff on-call. Associated attestation - Rosa Hugo [...] MD / Dr. Masood Pierson [address] [place] [address] 11/09/23 1:55 PM arrival for 2:10 PM appointment Montessori Preschool Teacher: Izaiah Meyer MD [address] [place] [address] , 11/24/2023 10:40 AM Your Inpatient Medical Team at [facility] Name(s) of your inpatient provider(s): Attending physician: Rosa Hugo MD Resident physicians: Emile Robles MD; Elmer Tamez MD If you have non-emergent questions, prior to your follow-up visit call: Tuesday-Tuesday between the hours of 8AM-5PM please call the Cardiology Clinic [phone] to speak with a nurse. All other hours please call the Hospital Coater Helper [phone] and ask to speak to the plywood layup line core feeder on-call. Your Primary Care Provider Rosie Mathews MD [phone] documented in this encounter Medications at Time [...] for hypertension and hyperlipidemia who presented to [facility] as a transfer from [facility] as a possible STEMI alert [...] for hypertension and hyperlipidemia who presented to [facility] as a transfer from [facility] as a possible STEMI alert [...] Resident on Cardiology Service Cardiology S1 (Pager [phone]) Note written in conjunction with Claudio Perla [facility] Medical Student, MS3 Associated attestation - [...] Nirmala Webb - 11/01/2023 11:25 AM EDT Grades 9 12 Tutor Encounter Note Patient Name: Adin Santos : [id number] MR#: [id number] Admit Date: 10/30/2023 5:11 PM Hospital Day 2 days Narrative: Self initiated visit to patient for Spiritual support in a regular unit rounds. Assessment: Patient is in the bathroom at the time of this visit. Not a good time for Telephone Triage Nurse visit. Intervention and Outcome: An attempted visit [...] for hypertension and hyperlipidemia who presented to [facility] as a transfer from [facility] as a possible STEMI alert [...] and low lung volumes. Findings similar to fashion show director radiograph from CT 10/30/2023. Scheduled Medications: [MAR [...] for hypertension and hyperlipidemia who presented to [facility] as a transfer from [facility] as a possible STEMI alert [...] Resident on Cardiology Service Cardiology S1 (Pager [phone]) Note written in conjunction with Claudio Perla [facility] Medical Student, MS3 Associated attestation - [...] for hypertension and hyperlipidemia who presented to [facility] as a transfer from [facility] as a possible STEMI alert with acute onset chest pain. Active Problems: Active Hospital Problems Diagnosis Unstable angina Resolved Hospital Problems No resolved problems to display. 24 hr events: - Cath'd yesterday with lesion in the proximal RCA (initially thought it was NEUROLOGICAL PHYSIOTHERAPIST but they were ableto wire, balloon and [...] and low lung volumes. Findings similar to fashion show director radiograph from CT 10/30/2023. TTE (10/30): Interpretation [...] for hypertension and hyperlipidemia who presented to [facility] as a transfer from [facility] as a possible STEMI alert [...] mg daily - Plan to start beta rodrikc tomorrow first dost given post cath, if [...] Resident on Cardiology Service Cardiology S1 (Pager [phone]) Note written in conjunction with Claudio Perla [facility] Medical Student, MS3 Associated attestation - [...] PCP: Rosie Mathews MD PCP phone number: [phone] Date of Admission: 10/30/2023 ( Hospital Day 0 days ) Attending:Rosa Cornejo MD ID: Adin Santos is a 83 y.o. female PMH significant for hypertension and hyperlipidemia who presented to [facility] as a transfer from [facility] as a possible STEMI alert with acute onset chest pain. The patient reports that her symptoms initially began on Tuesday when she was walking to [facility] and experienced bilateral arm heaviness while walking with no other symptoms. Then, this afternoon shereports developing bilateral achy shoulder pain and nonradiating substernal left-sided chest pressure that was 7/10 in severity after coming home from [facility]. The patient denies any associated fevers, chills, diaphoresis, lightheadedness/dizziness, syncope/presyncope, dyspnea (either at rest or on exertion), palpitations, orthopnea, or PND. The patient subsequently presented to [facility] as a walk-in for further [...] on repeat, her JAMIE resolved. Cardiology at [facility] was consulted for transfer; the patient was loaded with aspirin 324 mg and ticagrelor 180 mg, started on a heparin drip, and given nitroglycerin with improvement in chest pain. Upon arrival to [facility], the patient was taken directly to the Boat Cleaner. 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 Findings similar to fashion show director radiograph from CT 10/30/2023. Assessment & Plan: Adin Santos is a 83 y.o. female PMH significant for hypertension and hyperlipidemia who presented to [facility] as a transfer from [facility] as a possible STEMI alert [...] with HTN HLD transferred with chest from [facility]. BP 217/68, HR [address] [...] information for follow-up Home Health & H[facility]ice, [place] [address] TANESHA BOYCE confirmed with Brittany CARVAJAL that they will see the patient within 24-48 hours of discharge for start of care. Transportation: family or friend will provide Wheelchair van/Ambulance? No Functional status prior to admission: Assistive Equipment Home Environment: Others in the home: alone. Current Living Arrangements: home/apartment/condo. Accessibility Concerns:1st floor apartment in long-term community; handicapped accessible. Current Functional Ability: Assistive [...] in the room. Electrolytes replaced, see MAR. chemical laboratory assistant sites remained C/D/I with baseline ecchymosis unchanged. Pt complained of back pain, lidocaine patch given. Right IV infiltrated during infusion, patient is marked with sharpie, IV removed. See flowsheet for I+O's and safety rounding. Patient is able to make needs known and call capps within reach. PLAN MOVING FORWARD: Monitor Tele, control BP, monitor cardiac cath tech sites, D/C Planning INDIVIDUALIZED FALL PREVENTION INTERVENTIONS: [...] in an outpatient cardiac rehabilitation program at [facility] was discussed. Patient agrees to a referral [...] and above on RA. PT went to cardiac cath tech today. Left fem site oozed throughout shift, [...] MOVING FORWARD: Monitor Tele, control BP, monitor cardiac cath tech sites, D/C Planning INDIVIDUALIZED FALL PREVENTION INTERVENTIONS: [...] Admitted From: Transfer from another hospital Location: [facility] Reason for Hospitalization: chest pain Covid Vaccination [...] 180 days) Any patient receiving care in [place] must abide by [place] law. The hierarchy [...] Arrangements: home/apartment/condo. Accessibility Concerns:1st floor apartment in long-term community; handicapped accessible. In the last 12 [...] has the electric, gas, oil, or water [employer] threatened to shut off services in your [...] toilet seat Home Address confirmed as: [address] [facility] [address] Social & Family Supports: All names listed below confirmed with patient as current and correct Extended Emergency Contact Information Primary Emergency Contact: Iris Downing Address: [address], [place] [address] [place] [address] Mobile Relation: Child Secondary Emergency Contact: Karen More Address: [address] [facility] Mobile Relation: Child Current Care Provided by: self Provides Primary Care For: no one Caregiver if needed: child(emmanuel), adult Quality of Family relationships: involved, supportive Community Resources being provided currently: other (see comments) (receives [facility] services at home (1xweekly)) Behavioral [...] Insurance: N/A Prescription Coverage: Yes Preferred Pharmacy: [facility] [place], [place] - [address] [place] [address] [place] [address] Status: Patient is a : No Primary Care Provider listed: Masood Pierson MD [phone] Patient/Caregiver Goals of Treatment: home when MR Potential Needs for Transition of Care: home health care Agency Referrals: Not Applicable I have met with the patient to: discuss discharge planning needs. provide the [facility], Office of Care Management letter from the Data Modeler pertaining to rehab referrals. provide a letter describing our affiliations within the [facility]placed [facility] and educate about their right to choose where referrals are sent. provide a list of Home Health Agencies / Durable Medical Equipment vendors which serve their preferred geographic area. provided patient with CMS Star Quality Rating handout. They have requested referrals to: [facility] [address] [place] [address] Note routed to a Loss Prevention And Safety Manager who will communicate referrals to facilities [...] results. PO hydralazine added for BP control. chemical laboratory assistant sites remain C/D/I, ecchymosis unchanged th roughout shift. See flowsheet for I+O's and safety rounding. Patient is able to make needs known and call capps within reach. PLAN MOVING FORWARD: Monitor Tele, control CP and BP, NPO at MD for cath, monitor cardiac cath tech sites, D/C Planning INDIVIDUALIZED FALL PREVENTION INTERVENTIONS: [...] 11:20 AM EDT Office Visit Cardiology at [address] [address] Izaiah Meyer MD [facility] [place] [address] Scheduled Referrals Name Type Priority Associated Diagnoses [...] 3:46 AM EDT) Neutrophil % 63.3 % [facility] Neutrophil Absolute 5.28 1.70 - 6.10 x10(3)/mc L [facility] Lymph % 15.2 % [facility] Lymphocytes Abs 1.3 0.9 - 3.2 x10(3)/mc L [facility] Monocyte % 16.9 % [facility] Monocyte Abs 1.4(H) 0.3 - 0.9 x10(3)/mc L [facility] Eos % 3.7 % [facility] Eosinophils Abs 0.3 0.0 - 0.4 x10(3)/mc L [facility] Basophil % 0.5 % [facility] Baso Absolute 0.0 0.0 - 0.1 x10(3)/mc L [facility] Immature Gran % 0.40 % [facility] Comment: Immature granulocytes(IG's)percentage and absolute count will include metamyelocytes, myelocytes, and promyelocytes. Blood smears from CBCs yielding IG's will be scanned manually for concordance. If this scan disagrees with the automated IG or if promyelocytes are noted, a manual differential will be performed. Immature Gran Absolute 0.03 0.00 - 0.04 x10(3)/mc L [facility] Blood 11/03/2023 3:46 AM EDT 11/03/2023 4:11 AM EDT Narrative Resulting Agency Comment Spec In Lab Qamar Gallardo MD HEMATOLOGY ORDERABLE S [facility] [place] [address] * (ABNORMAL) Hemogram (11/03/2023 3:46 AM EDT) White Blood Cell 8.3 4.0 - 9.5 x10(3)/[facility] Red Blood Cell 3.77(L) 4.00 - 5.21 x10(6)/[facility] Hemoglobin 13.1 11.7 - 15.5 g/dL [facility] Hematocrit 38.0 35.7 - 45.8 % [facility] Mean Cell Volume 100.8(H) 82.6 - 94.4 fL [facility] Mean Cell Hemoglobin 34.7(H) 27.1 - 32.0 pg [facility] Mean Cell Hemoglobin Concentration 34.5 31.7 - 35.0 g/dL [facility] Platelet 181 145 - 357 x10(3)/ L [facility] RDW Standard Deviation 54.7(H) 37.0 - 46.0 [facility] RDW coefficient of variation 14.6(H) 11.5 - 14.1 % [facility] Mean Platelet Volume 11.2 7.6 - 12.9 [facility] NRBC% auto 0.0 % [facility] NRBC Absolute 0.000 0.000 - 0.000 x10(3)/ L [facility] Blood 11/03/2023 3:46 AM EDT 11/03/2023 4:11 AM EDT Narrative Resulting Agency Comment Spec In Lab Qamar Gallardo MD HEMATOLOGY ORDERABLE S Performing Organization Address City/[facility]/ZIP Co de Phone Number [facility] [place] [address] * Phosphorus (11/03/2023 3:46 AM EDT) Phosphorus 3.2 2.5 - 4.5 mg/dL [facility] Comment:result rechecked-KS Blood 11/03/2023 3:46 AM EDT 11/03/2023 4:11 AM EDT Narrative Resulting Agency Comment Spec In Lab Rosa Cornejo MD CHEMISTRY ORDERABLE S Performing Organization Address [facility]/ZIP Co de Phone Number [facility] [place] [address] * Magnesium (11/03/2023 3:46 AM EDT) Magnesium 0.90 0.69 - 1.07 mmol/L [facility] Blood 11/03/2023 3:46 AM EDT 11/03/2023 4:11 AM EDT Narrative Resulting Agency Comment Spec In Lab Rosa Cornejo MD CHEMISTRY ORDERABLE S Performing Organization Address City/[facility]/ZIP Co de Phone Number [facility] [place] [address] * (ABNORMAL) Basic Metabolic Panel (non-fasting) (11/03/2023 3:46 AM EDT) Glucose 105 65 - 199 mg/dL [facility] Comment:Diabetes: >=200 mg/d L plus symptoms Blood Urea Nitrogen 13 8 - 18 mg/dL [facility] Creatinine 0.83 0.70 - 1.20 mg/dL [facility] Sodium 139 135 - 145 mmol/L [facility] Potassium 4.0 3.5 - 5.0 mmol/L [facility] Comment: Please note: ??Patients with WBC >100,000 may have falsely elevated Potassium levels. ??For accurate Potassium quantification in these patients send serum separator tube (gold top) for subsequent determinations. ??Contact the Clinical Chemistry Laboratory if there are any questions. Chloride 108(H) 98 - 107 mmol/L [facility] Carbon Dioxide 19(L) 22 - 31 mmol/L [facility] Anion Gap 12 5 - 15 mmol/L [facility] Calcium 8.2(L) 8.5 - 10.5 mg/dL [facility] Est Glomerular Filtration Rate 69 >=60 mL/min/1. 73 m?? [facility] Comment: This patient's estimated [...] Lab Rosa Cornejo MD CHEMISTRY ORDERABLE S [facility] [place] [address] * EKG 12 Lead (11/02/2023 12:44 PM EDT) Ventricular rate 83 BPM MUSE SYSTEM Atrial Rate 83 BPM MUSE SYSTEM P-R Interval 216 ms MUSE SYSTEM QRS Duration 90 ms MUSE SYSTEM Q-T Interval 384 ms MUSE SYSTEM QTC Calculated (Bezet) 451 ms MUSE SYSTEM Calculated P [place] 92 degrees MUSE SYSTEM Calculated R [place] -51 degrees MUSE SYSTEM Calculated T [place] -33 degrees MUSE SYSTEM INTERPRETATION Sinus rhythm with 1st degree A-V block with Premature atrial complexes Left axis deviation Moderate voltage criteria for LVH, may be normal variant ( R in aVL , [place] product ) Anterolatera l infarct (cited on or before 01-NOV-2023) Abnormal ECG When compared with ECG of 01-NOV-2023 22:10, Premature atrial complexes are now Present CA interval has increased Vent. rate has decreased BY ??56 BPM Confirmed by MD Kevin, Esteban ([id number]) on 11/02/2023 1:32:10 PM MUSE SYSTEM 11/02/2023 12:4 4 PM EDT 11/02/2023 1:32 PM EDT Rosa Hugo MD ECG ORDERABLES MUSE SYSTEM * (ABNORMAL) Urinalysis Microscopic Exam (11/02/2023 11:40 AM EDT) RBC, Urine <1 0 - 4 /HPF [facility] Comment: Interpret results with caution, microscopic results are from suboptimal specimen volume WBC, Urine 16(H) 0 - 5 /HPF [facility] Comment: Interpret results with caution, microscopic results are from suboptimal specimen volume Bacteria, Urine Many(A) None /HPF [facility] Squamous Epithelial Cells Raw Data, Urine 10(H) <=4 /HPF [facility] Hyaline Casts, Urine 2 0 - 2 /LPF [facility] Comment: Interpret results with caution, microscopic results are from suboptimal specimen volume Clean Catch Urine 11/02/2023 11:40 AM EDT 11/02/2023 12:05 PM EDT Narrative Resulting Agency Comment Spec In Lab Elmer Tamez MD URINE ORDERABLES [facility] [place] [address] * (ABNORMAL) Urinalysis with reflex Culture (11/02/2023 11:40 AM EDT) Glucose, Urine Dipstick Negative Negative mg/dL [facility] Protein, Urine Dipstick 30(A) Negative mg/dL [facility] Bilirubin, Urine Dipstick Negative Negative mg/dL [facility] Comment: Clinical correlation required for positive Urine Bilirubin results as false positive may occur with some drugs and drug related products. If a false positive is suspected a serum total bilirubin should be considered if clinically indicated. Urobilinogen, Urine Dipstick Normal Normal mg/dL [facility] pH, Urn (dipstick) 5.5 5.0 - 8.0 [facility] Blood, Urine Dipstick Negative Negative mg/dL [facility] Ketone, Urine Dipstick Trace(A) Negative mg/dL [facility] Nitrite, Urine Dipstick Positive(A) Negative [facility] Leukocytes, Urine Dipstick Small(A) Negative [facility] Appearance, Urine Dipstick Cloudy(A) Clear [facility] Specific [place] Urine Automated >=1.030(A) 1.005 - 1.030 [facility] Color, Urine Dipstick Dark Yellow Yellow [facility] Reflex to Culture Yes [facility] Clean Catch Urine 11/02/2023 11:40 AM EDT 11/02/2023 12:04 PM EDT Narrative Resulting Agency Comment Spec In Lab Rosa Hugo MD URINE ORDERABLES [facility] [place] [address] * Respiratory Panel PCR (11/02/2023 10:15 AM EDT) Respiratory Panel Source STAFF DEVELOPMENT COORDINATOR Swab [facility] LABORATORY Respiratory Panel PCR Negative Negative [facility] Comment: Respiratory Panels are performed on the [employer], using multiplexed PCR nucleic acid detection. ??Negative results do not preclude respiratory infection and should not be used as the sole basis for diagnosis, treatment or other management decisions. Adenovirus Not Detected Not Detected [facility] Coronavirus HKU1 Not Detected Not Detected [facility] Coronavirus NL63 Not Detected Not Detected [facility] Coronavirus 229E Not Detected Not Detected [facility] Coronavirus OC43 Not Detected Not Detected [facility] SARS-CoV-2 Not Detected Not Detected [facility] Comment: Testing for SARS-CoV-2 (Severe acute respiratory syndrome coronavirus 2) to aid in the diagnosis of COVID-19 is performed using the [employer] Respiratory Panel 2.1 ([employer]) as authorized by the FDA issued Emergency Use Authorization (EUA). This panel also tests for multiple other viral and bacterial pathogens. This assay is intended for In-vitro Diagnostic (IVD) use with nasopharyngeal swabs in viral transport media. The assay is performed based on the instructions for use and additional guidance provided by the FDA. Testing is performed in laboratories within the [facility], each of which is certified under [...] fact sheets at the following FDA website: https://www.fda.gov/medical-devices/ukgmiuiclch-xrjbhox-1823-knhfl-91-ssdinzrhq- use-a fhmykxbuplvll-amhmvxg-ptqolzi/ozofw-zkehlftmwua-qtoa Human Metapneumovirus Not Detected Not Detected [facility] Human Rhinovirus/Enterov irus Not Detected Not Detected [facility] Influenza A Not Detected Not Detected [facility] Influenza B Not Detected Not Detected [facility] Parainfluenza 1 Not Detected Not Detected [facility] Parainfluenza 2 Not Detected Not Detected [facility] Parainfluenza 3 Not Detected Not Detected [facility] Parainfluenza 4 Not Detected Not Detected [facility] Respiratory Syncytial Virus Not Detected Not Detected [facility] Chlamydophila pneumoniae Not Detected Not Detected [facility] Mycoplasma pneumoniae Not Detected Not Detected [facility] Nasopharyngeal Swab 11/02/19 10:15 AM EDT 11/02/2023 10:49 AM EDT Narrative Resulting Agency Comment Spec In Lab Rosa Hugo MD MICROBIOLOGY - GEN ERAL ORDERABLES [facility] [place] [address] * XR Chest One View (11/02/2023 2:51 AM EDT) WORKSTATION ID [id number] DH RAD Anatomical Region Laterality Modality Chest [...] questions please contact the health intensive care nurse that requested your imaging first. ? Narrative [...] have questions please contactthe health intensive care nurse that requested your imaging first. Rosa Hugo MD IMG DX ORDERABLES * (ABNORMAL) Differential, Automated (11/02/2023 12:35 AM EDT) Neutrophil % 76.5 % [facility] Neutrophil Absolute 7.69(H) 1.70 - 6.10 x10(3)/mc L [facility] Lymph % 8.3 % [facility] Lymphocytes Abs 0.8(L) 0.9 - 3.2 x10(3)/mc L [facility] Monocyte % 12.9 % [facility] Monocyte Abs 1.3(H) 0.3 - 0.9 x10(3)/mc L [facility] Eos % 1.4 % [facility] Eosinophils Abs 0.1 0.0 - 0.4 x10(3)/mc L [facility] Basophil % 0.4 % [facility] Baso Absolute 0.0 0.0 - 0.1 x10(3)/mc L [facility] Immature Gran % 0.50 % [facility] Comment: Immature granulocytes(IG's)percentage and absolute count will include metamyelocytes, myelocytes, and promyelocytes. Blood smears from CBCs yielding IG's will be scanned manually for concordance. If this scan disagrees with the automated IG or if promyelocytes are noted, a manual differential will be performed. Immature Gran Absolute 0.05(H) 0.00 - 0.04 x10(3)/ L [facility] Blood 11/02/2023 12:3 5 AM EDT 11/02/2023 12:43 AM EDT Narrative Resulting Agency Comment Spec In Lab Qamar Gallardo MD HEMATOLOGY ORDERABLE S [facility] [place] [address] * (ABNORMAL) Hemogram (11/02/2023 12:35 AM EDT) White Blood Cell 10.0(H) 4.0 - 9.5 x10(3)/mc L [facility] Red Blood Cell 4.06 4.00 - 5.21 x10(6)/mc L [facility] Hemoglobin 13.8 11.7 - 15.5 g/dL [facility] Hematocrit 39.8 35.7 - 45.8 % [facility] Mean Cell Volume 98.0(H) 82.6 - 94.4 fL [facility] Mean Cell Hemoglobin 34.0(H) 27.1 - 32.0 pg [facility] Mean Cell Hemoglobin Concentration 34.7 31.7 - 35.0 g/dL [facility] Platelet 198 145 - 357 x10(3)/mc L [facility] RDW Standard Deviation 52.1(H) 37.0 - 46.0 fL [facility] RDW coefficient of variation 14.3(H) 11.5 - 14.1 % [facility] Mean Platelet Volume 11.4 7.6 - 12.9 fL [facility] NRBC% auto 0.0 % [facility] NRBC Absolute 0.000 0.000 - 0.000 x10(3)/mc L [facility] Blood 11/02/2023 12:3 5 AM EDT 11/02/2023 12:43 AM EDT Narrative Resulting Agency Comment Spec In Lab Qamar Gallardo MD HEMATOLOGY ORDERABLE S [facility] [place] [address] * (ABNORMAL) Phosphorus (11/02/2023 12:35 AM EDT) Phosphorus 1.6(L) 2.5 - 4.5 mg/dL [facility] Blood 11/02/2023 12:3 5 AM EDT 11/02/2023 12:43 AM EDT Narrative Resulting Agency Comment Spec In Lab Rosa Cornejo MD CHEMISTRY ORDERABLE S Performing Organization Address [facility]/ZIP Co de Phone Number [facility] [place] [address] * Magnesium (11/02/2023 12:35 AM EDT) Magnesium 0.87 0.69 - 1.07 mmol/L [facility] Blood 11/02/2023 12:3 5 AM EDT 11/02/2023 12:43 AM EDT Narrative Resulting Agency Comment Spec In Lab Rosa Cornejo MD CHEMISTRY ORDERABLE S Performing Organization Address City/[facility]/ZIP Co de Phone Number [facility] [place] [address] * Basic Metabolic Panel (non-fasting) (11/02/2023 12:35 AM EDT) Glucose 125 65 - 199 mg/dL [facility] Comment:Diabetes: >=200 mg/d L plus symptoms Blood Urea Nitrogen 9 8 - 18 mg/dL [facility] Creatinine 0.83 0.70 - 1.20 mg/dL [facility] Sodium 136 135 - 145 mmol/L [facility] Potassium 3.6 3.5 - 5.0 mmol/L [facility] Comment: Please note: ??Patients with WBC >100,000 may have falsely elevated Potassium levels. ??For accurate Potassium quantification in these patients send serum separator tube (gold top) for subsequent determinations. ??Contact the Clinical Chemistry Laboratory if there are any questions. Chloride 102 98 - 107 mmol/L [facility] Carbon Dioxide 25 22 - 31 mmol/L [facility] Anion Gap 9 5 - 15 mmol/L [facility] Calcium 9.0 8.5 - 10.5 mg/dL [facility] Est Glomerular Filtration Rate 69 >=60 mL/min/1. 73 m?? [facility] Comment: This patient's estimated [...] Lab Rosa Cornejo MD CHEMISTRY ORDERABLE S [facility] [place] [address] * Blood culture (11/02/2023 12:35 AM EDT) Blood Culture No growth at 5 days. [facility] Blood 11/02/2023 12:3 5 AM EDT 11/02/2023 1:55 AM EDT Comment:#2 site ukn Narrative Resulting Agency Comment Spec In Lab Rosa Hugo MD MICROBIOLOGY - BLO OD ORDERABLES Performing Organization Address [facility] Co de Phone Number [facility] [place] [address] * Blood culture (11/02/2023 12:15 AM EDT) Blood Culture No growth at 5 days. [facility] Blood 11/02/2023 12:1 5 AM EDT 11/02/2023 1:54 AM EDT Comment:#1site unk Narrative Resulting Agency Comment Spec In Lab Rosa Hugo MD MICROBIOLOGY - BLO OD ORDERABLES Performing Organization Address [facility] Co de Phone Number [facility] [place] [address] * EKG 12 Lead (11/01/2023 10:10 PM EDT) Ventricular rate 139 BPM MUSE SYSTEM Atrial Rate 139 BPM MUSE SYSTEM P-R Interval 168 ms MUSE SYSTEM QRS Duration 84 ms MUSE SYSTEM Q-T Interval 286 ms MUSE SYSTEM QTC Calculated (Bezet) 435 ms MUSE SYSTEM Calculated R [place] -59 degrees MUSE SYSTEM Calculated T [place] -27 degrees MUSE SYSTEM INTERPRETATION Mid-RP tachycardia, consider sinus tachycardia or SVT Left axis deviation Moderate voltage criteria for LVH, may be normal variant ( R in aVL , [place] product ) Inferior infarct (cited on or before 01-NOV-2023) Anterolateral infarct (cited on or before 01-NOV-2023) Abnormal ECG When compared with ECG of 01-NOV-2023 15:22, Vent. rate Although rate has increased Serial changes of Anterior infarct Present I personally reviewed the tracing and edited the fellows interpretation Confirmed by fellow MD Bowen Ashley ([id number]) on 11/04/2023 7:57:50 AM Confirmed by MD Carrillo Danette ([id number]) on 11/04/2023 4:32:03 PM MUSE SYSTEM 11/01/2023 10:1 0 PM EDT 11/04/2023 4:32 PM EDT Rosa Cornejo MD ECG ORDERABLES MUSE SYSTEM * (ABNORMAL) Hemogram (11/01/2023 10:06 PM EDT) White Blood Cell 10.4(H) 4.0 - 9.5 x10(3)/[facility] Red Blood Cell 4.11 4.00 - 5.21 x10(6)/[facility] Hemoglobin 14.0 11.7 - 15.5 g/dL [facility] Hematocrit 41.1 35.7 - 45.8 % [facility] Mean Cell Volume 100.0(H) 82.6 - 94.4 fL [facility] Mean Cell Hemoglobin 34.1(H) 27.1 - 32.0 pg [facility] Mean Cell Hemoglobin Concentration 34.1 31.7 - 35.0 g/dL [facility] Platelet 197 145 - 357 x10(3)/ L [facility] RDW Standard Deviation 54.0(H) 37.0 - 46.0 fL [facility] RDW coefficient of variation 14.6(H) 11.5 - 14.1 % [facility] Mean Platelet Volume 11.2 7.6 - 12.9 fL [facility] NRBC% auto 0.0 % [facility] NRBC Absolute 0.000 0.000 - 0.000 x10(3)/ L [facility] Blood 11/01/2023 10:0 6 PM EDT 11/01/2023 10:22 PM EDT Narrative Resulting Agency Comment Spec In Lab Rosa Hugo MD HEMATOLOGY ORDERAB LES Performing Organization Address City/[facility]/ZIP Co de Phone Number [facility] [place] [address] * POCT Glucose (11/01/2023 5:59 PM EDT) [facility] Signature Glucose, POC 104 65 - 199 mg/dL [facility] Comment: Supplemental ranges: <140 mg/dL before meals <180 mg/dL all other times of the day Blood 11/01/2023 5:59 PM EDT 11/01/2023 5:59 PM EDT Rosa Hugo MD POINT OF CARE TEST ORDERABLES Performing Organization Address [facility] Co de Phone Number [facility] [place] [address] * POCT Glucose (11/01/2023 5:35 PM EDT) [facility] Glucose, POC 85 65 - 199 mg/dL [facility] Comment: Supplemental ranges: <140 mg/dL before meals <180 mg/dL all other times of the day Blood 11/01/2023 5:35 PM EDT 11/01/2023 5:35 PM EDT Rosa Hugo MD POINT OF CARE TEST ORDERABLES Performing Organization Address City/[facility] Co de Phone Number [facility] [place] [address] * EKG 12 Lead (11/01/2023 3:22 PM EDT) Ventricular rate 59 BPM MUSE SYSTEM Atrial Rate 59 BPM MUSE SYSTEM P-R Interval 220 ms MUSE SYSTEM QRS Duration 94 ms MUSE SYSTEM Q-T Interval 428 ms MUSE SYSTEM QTC Calculated (Bezet) 423 ms MUSE SYSTEM Calculated P [place] 76 degrees MUSE SYSTEM Calculated R [place] -50 degrees MUSE SYSTEM Calculated T [place] -59 degrees MUSE SYSTEM INTERPRETATION Sinus bradycardia [...] Modality Other Narrative 11/02/2023 4:57 PM EDT ?[facility] ? Cardiac Catheterization/Intervention Report ? Patient Name: Adin Santos ? Procedure Date: 11/01/2023 ? A #: [id number] ? Primary Physician: Rosa Dewey I ? Case #: [id number] ? File Name: [id number] ? Catheterization Order Number: [id number] ? [facility] ? Final Report [place], [place] ? Patient Name: ? Adin M. Goguen ?ID#: ?[id number] ? : ?1940 ? Procedure Date: ? [...] procedure was Urgent. The indication for ?the cardiac cath tech visit is ACS greater than 24 hrs. [...] ??A premounted ? 3.50 x 15 mm Worthington Powell (RADHA) was deployed with a maximum ? [...] A premounted 3.50 x 15 mm Andrea Powell (RADHA) was deployed ? with a maximum [...] dose administered prior to arrival in the cardiac cath tech. ?Recommended anti-platelet/anti-thrombotic regimen: ?Continue aspirin 81 mg daily for indefinitely. ?Continue clopidogrel 75 mg daily for 12 months then stop. ?These recommendations are made at the time of the intervention. Patient ?and provider preferences or a changing clinical situation may require ?modification of this regimen. Consult [facility] Interventional Cardiology for ?questions. ?The 1 year [...] Procedure Note Rosa Dewey MD - 12/12/2023 [facility] Cardiac Catheterization/Intervention Report Patient Name: Adin Santos Procedure Date: 11/01/2023 A #: [id number] Primary Physician: Rosa Dewey I Case #: [id number] File Name: [id number] Catheterization Order Number: [id number] [facility] FinalReport [place], [place] Patient Name: Adin Santos ID#:[id number] :1940 Procedure Date: November 01, 2023 Case [...] was designated as ASA Class III. [facility] Vulnerable. Diagnostic Tests: Prior Coronary Angiography: LV ejection fraction within 6 months is 65%. Electrocardiography: EKG was assessed by ECG. EKG was Abnormal. EKG showed other abnormality. Medications Prior to Procedure: Aspirin, Angiotensin II Receptor Rodrick and Statin. Indications for Diagnostic Cath: The priority of the diagnostic procedure was Urgent. The indicationfor the cardiac cath tech visit is ACS greater than 24 hrs. [...] 14 atmospheres. Apremounted 3.50 x 15 mm [place] Powell (RADHA) was deployed with amaximum inflation pressure [...] The lesion was predilated with a 3.00mm [id number] MM balloon with a maximum inflation pressure of 14atmospheres. A premounted 3.50 x 15 mm Andrea Powell (RADHA) wasdeployed with a maximum inflation pressure [...] dose administered prior to arrival in the cardiac cath tech. Recommended anti-platelet/anti-thrombotic regimen: Continue aspirin 81 mg daily for indefinitely. Continue clopidogrel 75 mg daily for 12 months then stop. These recommendations are made at the time of the intervention.Patient and provider preferences or a changing clinical situation mayrequire modification of this regimen. Consult [facility] Interventional Cardiologyfor questions. The 1 year bleeding [...] * POCT Glucose (11/01/2023 7:06 AM EDT) [facility] Glucose, POC 93 65 - 199 mg/dL [facility] Comment: Supplemental ranges: <140 mg/dL before meals <180 mg/dL all other times of the day Blood 11/01/2023 7:06 AM EDT 11/01/2023 7:06 AM EDT Jean Laboy MD POINT OF CARE TEST O RDERABLES [facility] [place] [address] * (ABNORMAL) Differential, Automated (11/01/2023 3:09 AM EDT) Pathologist [facility] Neutrophil % 63.9 % [facility] Neutrophil Absolute 5.54 1.70 - 6.10 x10(3)/mc L [facility] Lymph % 20.0 % [facility] Lymphocytes Abs 1.7 0.9 - 3.2 x10(3)/mc L [facility] Monocyte % 11.9 % [facility] Monocyte Abs 1.0(H) 0.3 - 0.9 x10(3)/mc L [facility] Eos % 3.2 % [facility] Eosinophils Abs 0.3 0.0 - 0.4 x10(3)/ L [facility] Basophil % 0.5 % [facility] Baso Absolute 0.0 0.0 - 0.1 x10(3)/ L [facility] Immature Gran % 0.50 % [facility] Comment: Immature granulocytes(IG's)percentage and absolute count will include metamyelocytes, myelocytes, and promyelocytes. Blood smears from CBCs yielding IG's will be scanned manually for concordance. If this scan disagrees with the automated IG or if promyelocytes are noted, a manual differential will be performed. Immature Gran Absolute 0.04 0.00 - 0.04 x10(3)/ L [facility] Blood 11/01/2023 3:09 AM EDT 11/01/2023 3:29 AM EDT Narrative Resulting Agency Comment Spec In Lab Qamar Gallardo MD HEMATOLOGY ORDERABLE S Performing Organization Address City/State/[facility] Co de Phone Number [facility] [place] [address] * (ABNORMAL) Hemogram (11/01/2023 3:09 AM EDT) White Blood Cell 8.7 4.0 - 9.5 x10(3)/ L [facility] Red Blood Cell 3.72(L) 4.00 - 5.21 x10(6)/mc L [facility] Hemoglobin 12.5 11.7 - 15.5 g/dL [facility] Hematocrit 36.8 35.7 - 45.8 % [facility] Mean Cell Volume 98.9(H) 82.6 - 94.4 fL [facility] Mean Cell Hemoglobin 33.6(H) 27.1 - 32.0 pg [facility] Mean Cell Hemoglobin Concentration 34.0 31.7 - 35.0 g/dL [facility] Platelet 184 145 - 357 x10(3)/mc L [facility] RDW Standard Deviation 53.5(H) 37.0 - 46.0 fL [facility] RDW coefficient of variation 14.6(H) 11.5 - 14.1 % [facility] Mean Platelet Volume 11.3 7.6 - 12.9 fL [facility] NRBC% auto 0.0 % [facility] NRBC Absolute 0.000 0.000 - 0.000 x10(3)/mc L [facility] Blood 11/01/2023 3:09 AM EDT 11/01/2023 3:29 AM EDT Narrative Resulting Agency Comment Spec In Lab Qamar Gallardo MD HEMATOLOGY ORDERABLE S Performing Organization Address City/[facility]/ZIP Co de Phone Number [facility] [place] [address] * Phosphorus (11/01/2023 3:09 AM EDT) Phosphorus 2.5 2.5 - 4.5 mg/dL [facility] Blood 11/01/2023 3:09 AM EDT 11/01/2023 3:29 AM EDT Narrative Resulting Agency Comment Spec In Lab Rosa Cornejo MD CHEMISTRY ORDERABLE S Performing Organization Address City/[facility]/ZIP Co de Phone Number [facility] [place] [address] * Magnesium (11/01/2023 3:09 AM EDT) Magnesium 0.82 0.69 - 1.07 mmol/L [facility] Blood 11/01/2023 3:09 AM EDT 11/01/2023 3:29 AM EDT Narrative Resulting Agency Comment Spec In Lab Rosa Cornejo MD CHEMISTRY ORDERABLE S [facility] [place] [address] * (ABNORMAL) Basic Metabolic Panel (non-fasting) (11/01/2023 3:09 AM EDT) Glucose 100 65 - 199 mg/dL [facility] Comment:Diabetes: >=200 mg/d L plus symptoms Blood Urea Nitrogen 14 8 - 18 mg/dL [facility] Creatinine 0.83 0.70 - 1.20 mg/dL [facility] Sodium 137 135 - 145 mmol/L [facility] Potassium 3.4(L) 3.5 - 5.0 mmol/L [facility] Comment: Please note: ??Patients with WBC >100,000 may have falsely elevated Potassium levels. ??For accurate Potassium quantification in these patients send serum separator tube (gold top) for subsequent determinations. ??Contact the Clinical Chemistry Laboratory if there are any questions. Chloride 105 98 - 107 mmol/L [facility] Carbon Dioxide 24 22 - 31 mmol/L [facility] Anion Gap 8 5 - 15 mmol/L [facility] Calcium 8.6 8.5 - 10.5 mg/dL [facility] Est Glomerular Filtration Rate 69 >=60 mL/min/1. 73 m?? [facility] Comment: This patient's estimated [...] Lab Rosa Cornejo MD CHEMISTRY ORDERABLE S [facility] [place] [address] * (ABNORMAL) Troponin (10/31/2023 2:46 PM EDT) Troponin-T, High Sensitivity 544(H) <=14 ng/L [facility] Comment: This patient's troponin [...] troponin value can be found in the [facility] Test Catalog Troponin - [facility] Test Catalog Reference: Fourth [place] Definition of Myocardial Infarction. Journal of the [place] [employer] 2018;72:0180-4136 Blood 10/31/2023 2:46 PM EDT 10/31/2023 2:55 PM EDT Narrative Resulting Agency Comment Spec In Lab Jean Laboy MD CHEMISTRY ORDERABLES Performing Organization Address [facility] Co de Phone Number [facility] [place] [address] * EKG 12 Lead (10/31/2023 1:07 PM EDT) Ventricular rate 54 BPM MUSE SYSTEM Atrial Rate 54 BPM MUSE SYSTEM P-R Interval 218 ms MUSE SYSTEM QRS Duration 92 ms MUSE SYSTEM Q-T Interval 540 ms MUSE SYSTEM QTC Calculated (Bezet) 512 ms MUSE SYSTEM Calculated P [place] 85 degrees MUSE SYSTEM Calculated R [place] -44 degrees MUSE SYSTEM Calculated T [place] -69 degrees MUSE SYSTEM INTERPRETATION Sinus bradycardia with 1st degree A-V block Left axis deviation Moderate voltage criteria for LVH, may be normal variant ( R in aVL , [place] product ) T wave abnormality, consider inferolateral ischemia Prolonged QT Abnormal ECG When compared with ECG of 30-OCT-2023 20:21, Incomplete right bundle branch block is no longer Present Confirmed by MD NEFTALI, CHIDI ([id number]) on 10/31/2023 2:28:46 PM MUSE SYSTEM 10/31/2023 1:07 PM EDT 10/31/2023 2:28 PM EDT Rosa Cornejo MD ECG ORDERABLES Performing Organization Address [facility] Co de Phone Number MUSE SYSTEM * (ABNORMAL) Troponin (10/31/2023 11:37 AM EDT) Pathologist [facility] Troponin-T, High Sensitivity 580(H) <=14 ng/L [facility] Comment: This patient's troponin [...] troponin value can be found in the [facility] Test Catalog Troponin - [facility] Test Catalog Reference: Fourth [place] Definition of Myocardial Infarction. Journal of the [employer] [employer] 2018;72:1090-5793 Blood 10/31/2023 11:3 7 AM EDT 10/31/2023 11:50 AM EDT Narrative Resulting Agency Comment Spec In Lab Rosa Cornejo MD CHEMISTRY ORDERABLE S [facility] [place] [address] * ECHO COMPLETE (10/31/2023 8:52 AM EDT) Anatomical Region Laterality Modality Cardiac Other 10/31/2023 7:57 AM EDT Narrative 10/31/2023 9:45 AM EDT [address] [place] [address] ? Echocardiogram Report Name: ADIN SANTOS ? Study Date: 10/31/2023 07:57 AMBP: 106/76 mmHg ? Patient [facility]: [facility] 0[facility] A : 1940 ? Height: 163 cm ? Account: [id number] Age: 83 yrs ? Weight: 76 kg Gender: Female ?BSA: 1.8 m2 Ordering Physician: ROSA DEWEY Referring Physician: OMAIRA GIRON Performed By: HAFSA Carmichael Reason For Study: STEMI Interpreting Fellow: Raymond Warren. Exam Location: [facility]. Interpretation Summary -The left ventricle is [...] is no prior echocardiogram for comparison. Procedure Complete-69177. Satisfactory quality. There is sinus bradycardia. Left [...] Note Edgard Wang MD - 10/31/2023 [address] [place] [id number] Echocardiogram Report Name: TREY SANTOSMarco A Catherine Study Date: 407:57 AMBP: 106/76 mmHg Patient Location: [address] : 1940 Height: 163 cm Account: [id number] Age: 83 yrs Weight: 76 kg Gender: Female BSA: 1.8 m2 Ordering Physician: ROSA DEWEY Referring Physician: OMAIRA GIRON Performed By: HAFSA Carmichael Reason For Study: STEMI Interpreting Fellow: Raymond Warren. Exam Location: [facility]. Interpretation Summary -The left ventricle is [...] is no prior echocardiogram for comparison. Procedure Complete-07223. Satisfactory quality. There is sinus bradycardia. Left [...] EDT) Troponin-T, High Sensitivity 571(H) <=14 ng/L [facility] Comment: This patient's troponin [...] troponin value can be found in the [facility] Test Catalog Troponin - [facility] Test Catalog Reference: Fourth [place] Definition of Myocardial Infarction. Journal of the [employer] 2018;72:6033-2756 Blood 10/31/2023 8:51 AM EDT 10/31/2023 9:12 AM EDT Narrative Resulting Agency Comment Spec In Lab Rosa Cornejo MD CHEMISTRY ORDERABLE S Performing Organization Address City/State/[facility] Co de Phone Number [facility] [place] [address] * CARDIAC CATHETERIZATION (10/31/2023 8:10 AM EDT) Anatomical Region Laterality Modality Other Narrative 11/07/2023 9:42 AM EDT ?[facility] ? Cardiac Catheterization/Intervention Report ? Patient Name: Adin Santos M. ? Procedure Date: 10/30/2023 ? A #: [id number] ? Primary Physician: Rosa Dewey I ? Case #: [id number] ? File Name: [id number] ? Catheterization Order Number: [id number] ? [facility] ? Final Report [place], [place] ? Patient Name: ? Adin M. Goguen ?ID#: ?[id number] ? : ?1940 ? Procedure Date: ? October 30, 2023 ? Case #: ? [id number] ? Room: ? 5 ? Case Physician: [...] procedure was Emergent. The indication for ?the cardiac cath tech visit is ACS less than or equal [...] ? A premounted 4.00 x 38 mm Worthington Powell (RADHA) was deployed ? with a maximum [...] dose administered prior to arrival in the cardiac cath tech. ?Recommended anti-platelet/anti-thrombotic regimen: ?Continue aspirin 81 mg daily for 12 months then stop. ?Continue clopidogrel 75 mg daily for indefinitely. ?These recommendations are made at the time of the intervention. Patient ?and provider preferences or a changing clinical situation may require ?modification of this regimen. Consult [facility] Interventional Cardiology for ?questions. ? Conclusions: ?* [...] Procedure Note Rosa Dewey MD - 12/05/2023 [facility] Cardiac Catheterization/Intervention Report Patient Name: Adin Santos Procedure Date: 10/30/2023 A #: [id number] Primary Physician: Rosa Dewey I Case #: [id number] File Name: [id number] Catheterization Order Number: [id number] [facility] FinalReport [place], [place] Patient Name: Adin Santos ID#:[id number] :1940 Procedure Date: October 30, 2023 Case [...] was designated as ASA Class III. The [facility] clinical frailtyscale is 5: Mildly Frail. Diagnostic Tests: Electrocardiography: EKG was assessed by ECG. EKG was Abnormal. EKG showed STDeviation >= 0.5 mm, other abnormality and dynamic EKG changes. Medications Prior to Procedure: Aspirin, Angiotensin II Receptor Rodrick, Beta Rodrick andStatin. Indications for Diagnostic Cath: The priority of the diagnostic procedure was Emergent. Theindication for the cardiac cath tech visit is ACS less than or equal [...] A premounted 4.00 x 38 mm Andrea Powell (RADHA) wasdeployed with a maximum inflation pressure [...] dose administered prior to arrival in the cardiac cath tech. Recommended anti-platelet/anti-thrombotic regimen: Continue aspirin 81 mg daily for 12 months then stop. Continue clopidogrel 75 mg daily for indefinitely. These recommendations are made at the time of the intervention.Patient and provider preferences or a changing clinical situation mayrequire modification of this regimen. Consult [facility] Interventional Cardiologyfor questions. Conclusions: * Two vessel [...] * (ABNORMAL) Troponin (10/31/2023 4:21 AM EDT) [facility] Troponin-T, High Sensitivity 457(H) <=14 ng/L [facility] Comment: This patient's troponin [...] troponin value can be found in the [facility] Test Catalog Troponin - [facility] Test Catalog Reference: Fourth [place] Definition of Myocardial Infarction. Journal of the [place] 2018;72:4195-1138 Blood 10/31/2023 4:21 AM EDT 10/31/2023 4:30 AM EDT Narrative Resulting Agency Comment Spec In Lab Rosa Cornejo MD CHEMISTRY ORDERABLE S Performing Organization Address City/State/[facility] Co de Phone Number [facility] [place] [address] * (ABNORMAL) Differential, Automated (10/31/2023 3:05 AM EDT) Neutrophil % 71.7 % [facility] Neutrophil Absolute 8.21(H) 1.70 - 6.10 x10(3)/mc L [facility] Lymph % 16.9 % [facility] Lymphocytes Abs 1.9 0.9 - 3.2 x10(3)/mc L [facility] Monocyte % 9.4 % [facility] Monocyte Abs 1.1(H) 0.3 - 0.9 x10(3)/mc L [facility] Eos % 1.3 % [facility] Eosinophils Abs 0.2 0.0 - 0.4 x10(3)/mc L [facility] Basophil % 0.4 % [facility] Baso Absolute 0.0 0.0 - 0.1 x10(3)/ L [facility] Immature Gran % 0.30 % [facility] Comment: Immature granulocytes(IG's)percentage and absolute count will include metamyelocytes, myelocytes, and promyelocytes. Blood smears from CBCs yielding IG's will be scanned manually for concordance. If this scan disagrees with the automated IG or if promyelocytes are noted, a manual differential will be performed. Immature Gran Absolute 0.04 0.00 - 0.04 x10(3)/ L [facility] Blood 10/31/2023 3:05 AM EDT 10/31/2023 3:13 AM EDT Narrative Resulting Agency Comment Spec In Lab Qamar Gallardo MD HEMATOLOGY ORDERABLE S Performing Organization Address City/State/[facility] Co de Phone Number [facility] [place] [address] * (ABNORMAL) Hemogram (10/31/2023 3:05 AM EDT) White Blood Cell 11.5(H) 4.0 - 9.5 x10(3)/ L [facility] Red Blood Cell 3.75(L) 4.00 - 5.21 x10(6)/ L [facility] Hemoglobin 12.6 11.7 - 15.5 g/dL [facility] Hematocrit 37.1 35.7 - 45.8 % [facility] Mean Cell Volume 98.9(H) 82.6 - 94.4 fL [facility] Mean Cell Hemoglobin 33.6(H) 27.1 - 32.0 pg [facility] Mean Cell Hemoglobin Concentration 34.0 31.7 - 35.0 g/dL [facility] Platelet 206 145 - 357 x10(3)/ L [facility] RDW Standard Deviation 53.4(H) 37.0 - 46.0 fL [facility] RDW coefficient of variation 14.6(H) 11.5 - 14.1 % [facility] Mean Platelet Volume 11.1 7.6 - 12.9 fL [facility] NRBC% auto 0.0 % [facility] NRBC Absolute 0.000 0.000 - 0.000 x10(3)/mc L [facility] Blood 10/31/2023 3:05 AM EDT 10/31/2023 3:13 AM EDT Narrative Resulting Agency Comment Spec In Lab Qamar Gallardo MD HEMATOLOGY ORDERABLE S Performing Organization Address [facility] Co de Phone Number [facility] [place] [address] * (ABNORMAL) APTT (10/31/2023 3:05 AM EDT) Partial Thromboplastin Time 67(H) 25 - 37 sec [facility] Comment: The PTT is NOT appropriate for heparin monitoring. Use the Anti-Xa level for heparin monitoring (HEP UFH) or LMWH monitoring (HEP LMW). A PTT less than 37 seconds generally indicates adequate hemostasis. Blood 10/31/2023 3:05 AM EDT 10/31/2023 3:13 AM EDT Narrative Resulting Agency Comment Spec In Lab Rosa Cornejo MD HEMATOLOGY ORDERABL ES Performing Organization Address [facility] Co de Phone Number [facility] [place] [address] * (ABNORMAL) Prothrombin Time (10/31/2023 3:05 AM EDT) Prothrombin Time 12.6(H) 9.4 - 12.5 sec [facility] International Normalization Ratio 1.1 [facility] Comment: An INR <2.0 [...] Lab Rosa Cornejo MD HEMATOLOGY ORDERABL ES [facility] [place] [address] * (ABNORMAL) Differential, Automated (10/31/2023 1:37 AM EDT) Neutrophil % 71.1 % [facility] Neutrophil Absolute 7.53(H) 1.70 - 6.10 x10(3)/mc L [facility] Lymph % 18.0 % [facility] Lymphocytes Abs 1.9 0.9 - 3.2 x10(3)/mc L [facility] Monocyte % 8.7 % [facility] Monocyte Abs 0.9 0.3 - 0.9 x10(3)/mc L [facility] Eos % 1.6 % [facility] Eosinophils Abs 0.2 0.0 - 0.4 x10(3)/mc L [facility] Basophil % 0.4 % [facility] Baso Absolute 0.0 0.0 - 0.1 x10(3)/mc L [facility] Immature Gran % 0.20 % [facility] Comment: Immature granulocytes(IG's)percentage and absolute count will include metamyelocytes, myelocytes, and promyelocytes. Blood smears from CBCs yielding IG's will be scanned manually for concordance. If this scan disagrees with the automated IG or if promyelocytes are noted, a manual differential will be performed. Immature Gran Absolute 0.02 0.00 - 0.04 x10(3)/mc L [facility] Blood 10/31/2023 1:37 AM EDT 10/31/2023 1:46 AM EDT Narrative Resulting Agency Comment Spec In Lab Qamar Gallardo MD HEMATOLOGY ORDERABLE S [facility] [place] [address] * (ABNORMAL) Hemogram (10/31/2023 1:37 AM EDT) White Blood Cell 10.6(H) 4.0 - 9.5 x10(3)/mc L [facility] Red Blood Cell 3.78(L) 4.00 - 5.21 x10(6)/mc L [facility] Hemoglobin 13.0 11.7 - 15.5 g/dL [facility] Hematocrit 37.9 35.7 - 45.8 % [facility] Mean Cell Volume 100.3(H) 82.6 - 94.4 fL [facility] Mean Cell Hemoglobin 34.4(H) 27.1 - 32.0 pg [facility] Mean Cell Hemoglobin Concentration 34.3 31.7 - 35.0 g/dL [facility] Platelet 204 145 - 357 x10(3)/mc L [facility] RDW Standard Deviation 54.3(H) 37.0 - 46.0 fL [facility] RDW coefficient of variation 14.6(H) 11.5 - 14.1 % [facility] Mean Platelet Volume 11.1 7.6 - 12.9 fL [facility] NRBC% auto 0.0 % [facility] NRBC Absolute 0.000 0.000 - 0.000 x10(3)/mc L [facility] Blood 10/31/2023 1:37 AM EDT 10/31/2023 1:46 AM EDT Narrative Resulting Agency Comment Spec In Lab Qamar Gallardo MD HEMATOLOGY ORDERABLE S [facility] [place] [address] * Phosphorus (10/31/2023 1:37 AM EDT) [facility] Phosphorus 3.2 2.5 - 4.5 mg/dL [facility] Blood 10/31/2023 1:37 AM EDT 10/31/2023 1:46 AM EDT Narrative Resulting Agency Comment Spec In Lab Rosa Cornejo MD CHEMISTRY ORDERABLE S Performing Organization Address City/[facility]/ZIP Co de Phone Number [facility] [place] [address] * Magnesium (10/31/2023 1:37 AM EDT) [facility] Magnesium 0.83 0.69 - 1.07 mmol/L [facility] Blood 10/31/2023 1:37 AM EDT 10/31/2023 1:46 AM EDT Narrative Resulting Agency Comment Spec In Lab Rosa Cornejo MD CHEMISTRY ORDERABLE S Performing Organization Address City/[facility]/ZIP Co de Phone Number [facility] [place] [address] * Basic Metabolic Panel (non-fasting) (10/31/2023 1:37 AM EDT) [facility] Glucose 114 65 - 199 mg/dL [facility] Comment:Diabetes: >=200 mg/d L plus symptoms Blood Urea Nitrogen 13 8 - 18 mg/dL [facility] Creatinine 0.81 0.70 - 1.20 mg/dL [facility] Sodium 140 135 - 145 mmol/L [facility] Potassium 3.9 3.5 - 5.0 mmol/L [facility] Comment: Please note: ??Patients with WBC >100,000 may have falsely elevated Potassium levels. ??For accurate Potassium quantification in these patients send serum separator tube (gold top) for subsequent determinations. ??Contact the Clinical Chemistry Laboratory if there are any questions. Chloride 107 98 - 107 mmol/L [facility] Carbon Dioxide 25 22 - 31 mmol/L [facility] Anion Gap 8 5 - 15 mmol/L [facility] Calcium 8.6 8.5 - 10.5 mg/dL [facility] Est Glomerular Filtration Rate 72 >=60 mL/min/1. 73 m?? [facility] Comment: This patient's estimated [...] Lab Rosa Cornejo MD CHEMISTRY ORDERABLE S [facility] [place] [address] * (ABNORMAL) Troponin (10/31/2023 1:37 AM EDT) Troponin-T, High Sensitivity 329(H) <=14 ng/L [facility] Comment: This patient's troponin [...] troponin value can be found in the [facility] Test Catalog Troponin - [facility] Test Catalog Reference: Fourth [place] Definition of Myocardial Infarction. Journal of the [place] [employer] 2018;72:4783-6664 Blood 10/31/2023 1:37 AM EDT 10/31/2023 1:46 AM EDT Narrative Resulting Agency Comment Spec In Lab Rosa Cornejo MD CHEMISTRY ORDERABLE S Performing Organization Address City/State/[facility] [place] [address] * EKG 12 Lead (10/31/2023 1:20 AM EDT) Ventricular rate 52 BPM MUSE SYSTEM Atrial Rate 52 BPM MUSE SYSTEM P-R Interval 224 ms MUSE SYSTEM QRS Duration 108 ms MUSE SYSTEM Q-T Interval 544 ms MUSE SYSTEM QTC Calculated (Bezet) 505 ms MUSE SYSTEM Calculated P [place] 90 degrees MUSE SYSTEM Calculated R [place] -57 degrees MUSE SYSTEM Calculated T [place] -63 degrees MUSE SYSTEM INTERPRETATION Sinus bradycardia [...] Cornejo MD ECG ORDERABLES Performing Organization Address [facility] de Phone Number MUSE SYSTEM * EKG 12 Lead (10/30/2023 10:40 PM EDT) Ventricular rate 55 BPM MUSE SYSTEM Atrial Rate 55 BPM MUSE SYSTEM P-R Interval 232 ms MUSE SYSTEM QRS Duration 102 ms MUSE SYSTEM Q-T Interval 520 ms MUSE SYSTEM QTC Calculated (Bezet) 497 ms MUSE SYSTEM Calculated P [place] 75 degrees MUSE SYSTEM Calculated R [place] -53 degrees MUSE SYSTEM Calculated T [place] -57 degrees MUSE SYSTEM INTERPRETATION Sinus bradycardia with 1st degree A-V block Left anterior fascicular block Moderate voltage criteria for LVH, may be normal variant ( R in aVL , [place] product ) T wave abnormality, consider inferior ischemia T wave abnormality, consider anterolateral ischemia Prolonged QT Abnormal ECG When compared with ECG of 30-OCT-2023 20:21, Incomplete right bundle branch block is no longer Present Confirmed by Charles COFFMAN, Butch ([id number]) on 11/01/2023 8:58:01 PM MUSE SYSTEM 10/30/2023 10:4 0 PM EDT 11/01/2023 8:58 PM EDT Rosa Cornejo MD ECG ORDERABLES Performing Organization Address [facility] Phone Number MUSE SYSTEM * XR Chest One View (10/30/2023 10:10 PM EDT) WORKSTATION ID [id number] RAD Anatomical Region Laterality Modality Chest N/A Digital Radiogra phy Impressions 10/30/2023 10:32 PM EDT 1. ??Examination limited by low lung volumes. 2. ??Findings suggesting pulmonary vascular congestion with possible mild interstitial edema. 3. ??Known ascending aortic aneurysm, as seen on recent CT. 4. ??Nonspecific widening mediastinum. This can be secondary to magnification from portable technique and low lung volumes. Findings similar to fashion show director radiograph from CT 10/30/2023. Thank you for letting us participate in the care of this patient. ??If you are a health care provider and have any questions regarding this report, please contact the number below. ??For patients who have questions please contact the health intensive care nurse that requested your imaging first. ? Electronically signed by: Wilson Mccartney MD, [facility] ([phone]), at 10/30/2023 10:32 PM Narrative 10/30/2023 10:32 [...] and low lung volumes. Findings similar to fashion show director radiograph from CT 10/30/2023. Thank you for letting us participate in the care of this patient. If youare a health care provider and have any questions regarding this report,please contact the number below. For patients who have questions please contactthe health intensive care nurse that requested your imaging first. Rosa Cornejo MD IMG DX ORDERABLES * Green Tube HOLD (10/30/2023 10:05 PM EDT) [facility] Green Hold Sample in lab. [facility] Blood Venous Draw / Unknown 10/30/2023 10:05 PM EDT 10/30/2023 10:13 PM EDT Qamar Gallardo MD CHEMISTRY ORDERABLES [facility] [place] [address] * (ABNORMAL) Differential, Automated (10/30/2023 10:05 PM EDT) [facility] Neutrophil % 76.6 % [facility] Neutrophil Absolute 6.94(H) 1.70 - 6.10 x10(3)/mc L [facility] Lymph % 15.4 % [facility] Lymphocytes Abs 1.4 0.9 - 3.2 x10(3)/mc L [facility] Monocyte % 6.1 % [facility] Monocyte Abs 0.6 0.3 - 0.9 x10(3)/mc L [facility] Eos % 1.1 % [facility] Eosinophils Abs 0.1 0.0 - 0.4 x10(3)/ L [facility] Basophil % 0.6 % [facility] Baso Absolute 0.0 0.0 - 0.1 x10(3)/ L [facility] Immature Gran % 0.20 % [facility] Comment: Immature granulocytes(IG's)percentage and absolute count will include metamyelocytes, myelocytes, and promyelocytes. Blood smears from CBCs yielding IG's will be scanned manually for concordance. If this scan disagrees with the automated IG or if promyelocytes are noted, a manual differential will be performed. Immature Gran Absolute 0.02 0.00 - 0.04 x10(3)/ L [facility] Blood 10/30/2023 10:0 5 PM EDT 10/30/2023 10:12 PM EDT Narrative Resulting Agency Comment Spec In Lab Qamar Gallardo MD HEMATOLOGY ORDERABLE S [facility] [place] [address] * (ABNORMAL) Hemogram (10/30/2023 10:05 PM EDT) White Blood Cell 9.0 4.0 - 9.5 x10(3)/ L [facility] Red Blood Cell 3.96(L) 4.00 - 5.21 x10(6)/mc L [facility] Hemoglobin 13.3 11.7 - 15.5 g/dL [facility] Hematocrit 39.1 35.7 - 45.8 % [facility] Mean Cell Volume 98.7(H) 82.6 - 94.4 fL [facility] Mean Cell Hemoglobin 33.6(H) 27.1 - 32.0 pg [facility] Mean Cell Hemoglobin Concentration 34.0 31.7 - 35.0 g/dL [facility] Platelet 211 145 - 357 x10(3)/ L [facility] RDW Standard Deviation 53.6(H) 37.0 - 46.0 fL [facility] RDW coefficient of variation 14.6(H) 11.5 - 14.1 % [facility] Mean Platelet Volume 11.1 7.6 - 12.9 fL [facility] NRBC% auto 0.0 % [facility] NRBC Absolute 0.000 0.000 - 0.000 x10(3)/mc L [facility] Blood 10/30/2023 10:0 5 PM EDT 10/30/2023 10:12 PM EDT Narrative Resulting Agency Comment Spec In Lab Qamar Gallardo MD HEMATOLOGY ORDERABLE S Performing Organization Address City/[facility]/ZIP Co de Phone Number [facility] [place] [address] * Hemoglobin A1c (10/30/2023 10:05 PM EDT) Hemoglobin A1c 5.5 4.3 - 5.6 % [facility] Comment: Reference Range: 4.3 [...] Mellitus, Diabetes Care 2013; 36: Suppl. 1, P38-03 Estimated Average Glucose See note mg/dL [facility] Comment: Estimated Average Glucose not appropriate for patients over 70 years of age. Blood 10/30/2023 10:0 5 PM EDT 10/30/2023 10:12 PM EDT Narrative Resulting Agency Comment Spec In Lab Rosa Cornejo MD CHEMISTRY ORDERABLE S Performing Organization Address City/[facility]/ZIP Co de Phone Number [facility] [place] [address] * Lipid Panel (Reflex Direct LDL) (10/30/2023 10:05 PM EDT) Cholesterol, Total 218 mg/dL [facility] Comment: Desirable: ? <200 mg/dL Borderline High: 200-239 mg/dL Higher: ?>pj=047 mg/dL Triglyceride 46 mg/dL [facility] Comment: Normal: ?<150 mg/dL Borderline High: 150-199 mg/dL High: ?200-499 mg/dL Very High: ? >qa=624 mg/dL HDL Cholesterol 64 mg/dL [facility] Comment: Females: High Risk: <50 mg/dL Males: High Risk: <40 mg/dL LDL Cholesterol 145 mg/dL [facility] Comment: Desirable: ? <100 mg/dL Above Desirable: 100-129 mg/dL Borderline High: 130-159 mg/dL High: ?160-189 mg/dL Very High: ? >yx=079 mg/dL Lipid Interpretation See Note [facility] Comment: It is important [...] ACC/AHA Guidelines (most recently Feliciano et [facility]. [facility] 03/23/22): For individuals with atherosclerotic cardiovascular disease (ASCVD)or LDL >fi=717 mg/dL, use a high-intensity statin (40-80 mg [...] Lab Rosa Cornejo MD CHEMISTRY ORDERABLE S [facility] [place] [address] * TSH [place] (10/30/2023 10:05 PM EDT) Thyroid Stimulating Hormone 3.35 0.27 - 4.20 mcIU/mL [facility] Comment: Reference Interval (mcIU/mL): Females: ??First Trimester: 0.23-3.88 ??Second Trimester: 0.22-3.90 ??Third Trimester: 0.44-4.66 Blood 10/30/2023 10:0 5 PM EDT 10/30/2023 10:12 PM EDT Narrative Resulting Agency Comment Spec In Lab Rsoa Cornejo MD CHEMISTRY ORDERABLE S [facility] [place] [address] * pro-Brain Natriuretic Peptide (10/30/2023 10:05 PM EDT) NT-proBNP 375 <=449 pg/mL [facility] Blood 10/30/2023 10:0 5 PM EDT 10/30/2023 10:12 PM EDT Narrative Resulting Agency Comment Spec In Lab Rosa Cornejo MD CHEMISTRY ORDERABLE S Performing Organization Address [facility]/ZIP Co de Phone Number [facility] [place] [address] * (ABNORMAL) Comprehensive metabolic panel (non-fasting) (10/30/2023 10:05 PM EDT) Pathologist [facility] Glucose 121 65 - 199 mg/dL [facility] Comment:Diabetes: >=200 mg/d L plus symptoms Blood Urea Nitrogen 14 8 - 18 mg/dL [facility] Creatinine 0.85 0.70 - 1.20 mg/dL [facility] Sodium 142 135 - 145 mmol/L [facility] Potassium 3.9 3.5 - 5.0 mmol/L [facility] Comment: Please note: ??Patients with WBC >100,000 may have falsely elevated Potassium levels. ??For accurate Potassium quantification in these patients send serum separator tube (gold top) for subsequent determinations. ??Contact the Clinical Chemistry Laboratory if there are any questions. Chloride 105 98 - 107 mmol/L [facility] Carbon Dioxide 27 22 - 31 mmol/L [facility] Anion Gap 10 5 - 15 mmol/L [facility] Calcium 8.8 8.5 - 10.5 mg/dL [facility] Protein, Total 6.5 6.1 - 8.0 g/dL [facility] Albumin 4.2 3.2 - 5.2 g/dL [facility] Aspartate Aminotransferase 36(H) 0 - 30 unit/L [facility] Alanine Aminotransferase 17 0 - 30 unit/L [facility] Alkaline Phosphatase 54 35 - 105 unit/L [facility] Bilirubin, Total 0.5 0.2 - 1.3 mg/dL [facility] Est Glomerular Filtration Rate 68 >=60 mL/min/1. 73 m?? [facility] Comment: This patient's estimated [...] MD CHEMISTRY ORDERABLE S Performing Organization Address City/[facility]/ZIP Co de Phone Number [facility] [place] [address] * Phosphorus (10/30/2023 10:05 PM EDT) Phosphorus 3.3 2.5 - 4.5 mg/dL [facility] Blood 10/30/2023 10:0 5 PM EDT 10/30/2023 10:12 PM EDT Narrative Resulting Agency Comment Spec In Lab Rosa Cornejo MD CHEMISTRY ORDERABLE S Performing Organization Address City/[facility]/ZIP Co de Phone Number [facility] [place] [address] * Magnesium (10/30/2023 10:05 PM EDT) Magnesium 0.86 0.69 - 1.07 mmol/L [facility] Blood 10/30/2023 10:0 5 PM EDT 10/30/2023 10:12 PM EDT Narrative Resulting Agency Comment Spec In Lab Rosa Cornejo MD CHEMISTRY ORDERABLE S [facility] [place] [address] * (ABNORMAL) Troponin (10/30/2023 10:05 PM EDT) Troponin-T, High Sensitivity 214(H) <=14 ng/L [facility] Comment: This patient's troponin [...] troponin value can be found in the [facility] Test Catalog Troponin - [facility] Test Catalog Reference: Fourth [place] Definition of Myocardial Infarction. Journal of the [place] [employer] 2018;72:5181-4942 Blood 10/30/2023 10:0 5 PM EDT 10/30/2023 10:12 PM EDT Narrative Resulting Agency Comment Spec In Lab Rosa Cornejo MD CHEMISTRY ORDERABLE S [facility] [place] [address] * EKG 12 Lead (10/30/2023 8:21 PM EDT) Ventricular rate 49 BPM MUSE SYSTEM Atrial Rate 49 BPM MUSE SYSTEM P-R Interval 230 ms MUSE SYSTEM QRS Duration 96 ms MUSE SYSTEM Q-T Interval 526 ms MUSE SYSTEM QTC Calculated (Bezet) 475 ms MUSE SYSTEM Calculated P [place] 98 degrees MUSE SYSTEM Calculated R [place] -48 degrees MUSE SYSTEM Calculated T [place] -51 degrees MUSE SYSTEM INTERPRETATION Sinus bradycardia [...] Cornejo MD ECG ORDERABLES Performing Organization Address City/[facility] Co de Phone Number MUSE SYSTEM [...] Leblanc, TANESHA)[phone] (New Bag - Provider: Lolly Lebalnc RN)[phone] (Stopped - Provider: Mary Sweeney RN)[phone] [...] documented as of this encounter Care Teams Technical Staff Engineer Relationship Specialty Start Date End Date Rosie Mathews MD [address] [place] [address] PCP - General Family Medicine 11/25/17 11/23/23 documented as of this encounter
--- OUTSIDE RECORDS SUMMARY | 2024-02-10 10:24 | XMS_ITS | Clinical Summary ---
Author Organization [facility] Address [address] [place] [address] Care Team Providers Care Assistant Professor Of Business Name Role Phone Kirsten Bateman MD Primary Care Provider [phone] Allergies Active Allergy Reactions Criticality Noted Date [...] COVID-19 Vaccine (2022-24 season) 2023 Care Teams Assistant Professor Of Business Relationship Specialty Start Date End Date Kirsten Bateman MD [address] [place] [phone] PCP - General 01/13/10
--- OUTSIDE RECORDS SUMMARY | 2024-02-10 10:24 | XMS_ITS | Encounter Summary ---
Author Organization [facility] Address [address] [place] [address] Care Team Providers Care Freight Claim Investigator Name Role Phone Unavailable Primary Care Provider Unavailabl e Encounter Details Date Type Department Care Team (Late st Contact Info) Description 01/10/2008 Before PRISM Converted Visit (Maple) [facility] conversion [address] [place] [address] Ray Farooq MD [address] [place] [phone] Social History Tobacco Use Types Packs/Day Years Used Date Smoking Tobacco: Never Assessed Sex and Gender Information Value Date Recorded Sex Assigned at Not on file Gender Identity Not on file Sexual Orientation Not on file documented as of this encounter Consult Notes * Ray Farooq MD - 03/21/2009 1179 EDT [facility] - 01/10/2008 Kirsten Bateman MD [facility] [address] [place] [address] Bateman: Chief complaint: Hearing loss. History of present illness: Ggirr-fsaie-rjop-old female with along history of bilateral hearing [...] is a nonsmoker, nondrinker. She lives in [place]. Review of systems is significant for allergies, [...] Tosin Farooq MD - MLD Job ID: [id number] Doc ID: [id number] cc: Kirsten Bateman MD cc: Kirsten Bateman MD documented in this encounter Plan of Treatment Not on file documented as of this encounter Visit Diagnoses Not on filedocumented in this encounter
--- OUTSIDE RECORDS SUMMARY | 2024-02-10 10:24 | XMS_ITS | Encounter Summary ---
Author Organization [facility] Address [facility] [place] [address] Care Team Providers Care Solid Waste Management Engineer Name Role Phone Rosie Mathews MD Primary Care Provider [phone] Reason for Visit * Reason Comments Skin Lesion * Consultation (Routine) - Closed Specialty Diagnoses / Procedures Referred By John hunt Referred To Contact Dermatology Diagnoses facial skin lesion Procedures pt would like to be seen PRADEEP Rosie Mathews MD [address] [place] [address] [facility] [address] [place] [address] Referral ID Status Reason Start Date Expiration Date V isits Requested Visits Authorized [id number] Closed Consult, Test & Treat [facility] 10/25/2017 10/25/2018 1 1 Encounter Details Date Type Department Care Team (Late st Contact Info) Description 11/25/2017 4:30 PM EDT Office Visit Dermatology at [facility] [address] [place] [address] Call, Radu Go MD [facility] DR SHERLY[place] [address] Seborrheic keratosis; Fibrous papule of [...] by Radu Tom MD Resident in Dermatology [facility] Patient seen in conjunction with staff sample paster: Terri Hale MD Section of Dermatology [facility] * Terri Hale MD - [...] AM EDT Office Visit Cardiology at [address] [address] Izaiah Meyer MD [facility] [place] [address] documented as of this encounter Visit Diagnoses Diagnosis Seborrheic keratosis Other seborrheic keratosis Fibrous papule of nose Benign neoplasm of skin of other and unspecified parts of face Skin tags, multiple acquired documented in this encounter Care Teams Solid Waste Management Engineer Relationship Specialty Start Date End Date Rosie Mathews MD [address] [place] [address] PCP - General Family Medicine 11/25/17 11/23/23 documented as of this encounter
--- OUTSIDE RECORDS SUMMARY | 2024-02-10 10:24 | XMS_ITS | Encounter Summary ---
Author Organization [facility] Address [facility] [place] [address] Care Team Providers Care Styrene Dehydration Reactor Operator Name Role Phone Rosie Mathews MD Primary Care Provider [phone] Encounter Details Date Type Department Care Team (Late st Contact Info) Description 10/30/2023 [place] [address] Jose Lee MD [facility] [place] [address] Social History Tobacco Use Types Packs/Day Years Used Date Smoking Tobacco: Former Smokeless Tobacco: Never Alcohol Use Standard Drinks/Week Comments Not Currently 0 (1 standard drink = 0.6 oz pur e alcohol) [facility] Utilities Answer Date Recorded In the past 12 months has th e [employer], gas, oil, or water [employer] threatened to shut off services in [...] 11:20 AM EDT Office Visit Cardiology at [address] [address] Izaiah Meyer MD [facility] [place] [address] documented as of this encounter Visit Diagnoses Not on filedocumented in this encounter Additional Health Concerns Infection Onset Date Last Indicated Resolved Time Rule Out Respiratory 11/02/2023 11/02/2023 024 12:22 PM EDT Rule Out COVID-19 11/02/2023 11/02/2023 11/02/2023 12:22 PM EDT documented as of this encounter Care Teams Styrene Dehydration Reactor Operator Relationship Specialty Start Date End Date Rosie Mathews MD [address] [place] [address] PCP - General Family Medicine 11/25/17 11/23/23 documented as of this encounter
--- OUTSIDE RECORDS SUMMARY | 2024-02-10 10:24 | XMS_ITS | Encounter Summary ---
Author Organization [facility] Address [address] [place] [address] Care Team Providers Care Retail Stocker Name Role Phone Kirsten Bateman MD Primary Care Provider [phone] Encounter Details Date Type Department Care Team (Late st Contact Info) Description 01/14/2010 Abstract Used for ABSTRACTING Data [phone] Kirsten Bateman MD [address] [place] [address] Social History Tobacco Use Types [...] OIL/COCONUT OIL (FATTY ACID BASE MISC) by [facility]Non-Drug; Combo Route) route. EPA CYANOCOBALAMIN (VITAMIN B-12 ORAL) Take by mouth. ASCORBIC ACID (VITAMIN C ORAL) Take by mouth. VITAMIN E ACETATE (VITAMIN E ORAL) Take by mouth. ASPIRIN ORAL Take by mouth. AMITRIPTYLINE HCL (AMITRIPTYLINE ORAL) Take by mouth. ATENOLOL ORAL Take by mouth. SIMVASTATIN ORAL Take by mouth. added in this encounter Care Teams Retail Stocker Relationship Specialty Start Date End Date Kirsten Bateman MD [address] [place] [phone] PCP - General 01/13/10 documented as of this encounter
--- OUTSIDE RECORDS SUMMARY | 2024-02-13 10:13 | XMS_ITS | Encounter Summary ---
Author Organization [facility] Address [facility] [place] [address] Care Team Providers Care Director Peoplesoft Name Role Phone Rosie Mathews MD Primary Care Provider [phone] Encounter Details Date Type Department Care Team (Late st Contact Info) Description 11/18/2023 Telephone Cardiology at [address] [address] Cheryl Guzman MD [facility] [place] [address] Social History Tobacco Use Types Packs/Day Years Used Date Smoking Tobacco: Former Smokeless Tobacco: Never Alcohol Use Standard Drinks/Week Comments Not Currently 0 (1 standard drink = 0.6 oz pur e alcohol) [facility] Utilities Answer Date Recorded In the past 12 months has e electric, gas, oil, or water [employer] threatened to shut off services in your [...] in a alf (including now)? No 11/01/2023 IPV Inpatient Questions [...] Provider: Radu Giron MD Patient Location: ED, [facility] Past Medical History: HTN HLD NSTEMI ([facility] 11/02, status-post revasc) Presenting Symptoms per OSH: Lyla Goodrich is a 83 y.o. woman who presents to [facility] with an episode of chest pain. Recent admission to [facility] with NSTEMI status-post PCI to the prox-RCA [...] today's values. 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 Recommend admission for observation to assess for [...] 11:20 AM EDT Office Visit Cardiology at [address] [phone] Izaiah Meyer MD [facility] [place] [address] documented as of this encounter Visit Diagnoses Not on filedocumented in this encounter Care Teams Director Peoplesoft Relationship Specialty Start Date End Date Rosie Mathews MD [address] [place] [address] PCP - General Family Medicine 11/25/17 11/23/23 documented as of this encounter
--- OUTSIDE RECORDS SUMMARY | 2024-02-13 10:13 | XMS_ITS | Encounter Summary ---
Author Organization [facility] Address [facility] [place] [address] Care Team Providers Care Clothing Pattern Preparer Name Role Phone Masood Pierson MD Primary Care Provider [phone] Encounter Details Date Type Department Care Team (Late st Contact Info) Description 12/16/2023 Telephone Cardiology at [address] [place] [address] Izaiah Meyer MD [facility] [place] [address] Social History Tobacco Use Types Packs/Day Years Used Date Smoking Tobacco: Former Smokeless Tobacco: Never Alcohol Use Standard Drinks/Week Comments Not Currently 0 (1 standard drink = 0.6 oz pur e alcohol) [facility] Utilities Answer Date Recorded In the past 12 months has [employer], gas, oil, or water [employer] threatened to shut off services in your [...] place to sleep or slept in a custodial (including now)? No 11/01/2023 DH IPV Inpatient [...] RN - 12/16/2023 11:25 AM EDT Denise, [facility] Cardiac processor grain, called to report that at today's session [...] AM EDT Office Visit Cardiology at [address] [place] [address] Izaiah Meyer MD [facility] [place] [address] documented as of this encounter Visit Diagnoses Not on filedocumented in this encounter Care Teams Clothing Pattern Preparer Relationship Specialty Start Date End Date Masood Pierson MD [address] [place] [address] PCP - General Family Medicine 11/24/23 documented as of this encounter
--- OUTSIDE RECORDS SUMMARY | 2024-02-13 10:13 | XMS_ITS | Encounter Summary ---
Author Organization [facility] Address [facility] [address] Care Team Providers Care Director Community Organization Name Role Phone Rosie Mathews MD Primary Care Provider [phone] Reason for Visit * Reason Onset Date Comments Referral 11/03/2023 Coronary Artery Disease 11/03/2023 Encounter Details Date Type Department Care Team (Late st Contact Info) Description 11/03/2023 Telephone Cardiology at [address] [address] Andressa Machado, residential team leader; Coronary Artery Disease Social History Tobacco Use Types Packs/Day Years Used Date Smoking Tobacco: Former Smokeless Tobacco: Never Alcohol Use Standard Drinks/Week Comments Not Currently 0 (1 standard drink = 0.6 oz pur e alcohol) [facility] Utilities Answer Date Recorded In the past 12 months has e [employer], gas, oil, or water [employer] threatened to shut off services in your [...] in a mcfp (including now)? No 11/01/2023 IPV Inpatient Questions [...] were not included. Heart and Vascular Clinics [facility] [address] [place] [address] Lyla was referred to this Cardiology clinic in [place] for post cardiac cath 10/31 for STEMI follow up as part of her discharge plan from [facility] documented in this encounter Plan of Treatment Upcoming Encounters Date Type Department Care Team (Late st Contact Info) Description 03/29/2024 11:20 AM EDT Office Visit Cardiology at [address] [place] [address] [facility] [place] [address] documented as of this encounter Visit Diagnoses Not on filedocumented in this encounter Care Teams Director Community Organization Relationship Specialty Start Date End Date Rosie Mathews MD [address] [place] [address] PCP - General Family Medicine 11/25/17 11/23/23 documented as of this encounter
--- OUTSIDE RECORDS SUMMARY | 2024-02-13 10:13 | XMS_ITS | Encounter Summary ---
Author Organization [facility] Address [facility] [place] [address] Care Team Providers Care Conference Interpreter Name Role Phone Masood Pierson MD Primary Care Provider [phone] Reason for Visit * Reason Comments Establish Care Coronary Artery Disease Encounter Details Date Type Department Care Team (Latest Contact Info) Description 11/24/2023 10:40 AM EDT Office Visit Cardiology at [address] [place] [address] Izaiah Meyer MD [facility] [place] [address] ASCVD (arteriosclerotic cardiovascular disease); Cardiomyopathy, ischemic; Ascending aorta dilatation; Hyperpiesia Social History Tobacco Use Types Packs/Day Years Used Date Smoking Tobacco: Former Smokeless Tobacco: Never Alcohol Use Standard Drinks/Week Comments Not Currently 0 (1 standard drink = 0.6 oz pur e alcohol) [facility] Utilities Answer Date Recorded In the [...] Prox 60 Mid 80 3.5 x 15 [place] 3.5 x 15 Andrea RCA Mid AoCTO. [...] [facility]. [facility] SBP very well controlled at home [...] AM EDT Office Visit Cardiology at [address] [place] [phone] Izaiah Meyer MD [facility] [place] [address] documented as of this encounter Visit Diagnoses Diagnosis ASCVD (arteriosclerotic cardiovascular disease) Unspecified cardiovascular disease Cardiomyopathy, ischemic Other specified forms of chronic ischemic heart disease Ascending aorta dilatation Thoracic aortic ectasia Hyperpiesia Unspecified essential hypertension documented in this encounter Care Teams Conference Interpreter Relationship Specialty Start Date End Date Masood Pierson MD [address] [place] [address] PCP - General Family Medicine 11/24/23 documented as of this encounter
--- OUTSIDE RECORDS SUMMARY | 2024-02-13 10:13 | XMS_ITS | Clinical Summary ---
Author Organization [facility] Address [facility] [place] [address] Care Team Providers Care Ratings Analyst Name Role Phone Masood Pierson MD Primary Care Provider [phone] Allergies Active Allergy Reactions Criticality Noted Date [...] Prox 60 Mid 80 3.5 x 15 [place] 3.5 x 15 [place] RCA Mid AoCTO. Collats from Cx 4.0 x 38 [place] NB: RCA initially intervened; Cx 2 days [...] Care Team Description 12/16/2023 Telephone Cardiology at [address] [address] Izaiah Meyer MD 11/24/2023 10:40 AM EDT Office Visit Cardiology at [address] [address] Izaiah Meyer MD ASCVD (arteriosclerotic cardiovascular disease); Cardiomyopathy, ischemic; Ascending aorta dilatation; Hyperpiesia 11/24/2023 Travel 11/18/2023 Telephone Cardiology at [address] [address] Cheryl Guzman MD 11/18/2023 [place] [address] from Last 3 Months Social History Tobacco Use Types Packs/Day Years Used Date Smoking Tobacco: Former Smokeless Tobacco: Never Alcohol Use Standard Drinks/Week Comments Not Currently 0 (1 standard drink = 0.6 oz pur e alcohol) [facility] Utilities Answer Date Recorded In the past 12 months has th e [employer], gas, oil, or water [employer] threatened to shut off services in [...] AM EDT Office Visit Cardiology at [address] [place] [phone] Izaiah Meyer MD [facility] [place] [address] Health Maintenance Due Date Last Done Comments [...] (Bezet) 444 ms MUSE SYSTEM Calculated P [place] 79 degrees MUSE SYSTEM Calculated R [place] -39 degrees MUSE SYSTEM Calculated T [place] -49 degrees MUSE SYSTEM INTERPRETATION Sinus bradycardia [...] Anterolateral leads Confirmed by MD Meyer Daniel ([id number]) on 12/10/2023 2:50:44 PM MUSE SYSTEM 11/24/2023 [...] Status decision made by: Patient Care Teams Ratings Analyst Relationship Specialty Start Date End Date Masood Pierson MD [address] [place] [address] PCP - General Family Medicine 11/24/23
--- OUTSIDE RECORDS SUMMARY | 2024-02-13 10:13 | XMS_ITS | Encounter Summary ---
Author Organization [facility] Address [facility] [place] [address] Care Team Providers Care Cone Cleaner Name Role Phone Masood Pierson MD Primary Care Provider [phone] Encounter Details Date Type Department Care Team (Latest Contact Info) Description 11/24/2023 Travel Social History Tobacco Use Types Packs/Day Years Used Date Smoking Tobacco: Former Smokeless Tobacco: Never Alcohol Use Standard Drinks/Week Comments Not Currently 0 (1 standard drink = 0.6 oz pur e alcohol) [facility] Utilities Answer Date Recorded In the [...] AM EDT Office Visit Cardiology at [address] [phone] Izaiah Meyer MD [facility] [place] [address] documented as of this encounter Visit Diagnoses Not on filedocumented in this encounter Care Teams Cone Cleaner Relationship Specialty Start Date End Date Masood Pierson MD [address] [place] [address] PCP - General Family Medicine 11/24/23 documented as of this encounter
--- OUTSIDE RECORDS SUMMARY | 2024-02-13 10:13 | XMS_ITS | Encounter Summary ---
Author Organization [facility] Address [facility] [place] [address] Care Team Providers Care Account Management Assistant Name Role Phone Rosie Mathews MD Primary Care Provider [phone] Encounter Details Date Type Department Care Team (Late st Contact Info) Description 11/18/2023 External Results Administration [facility] [place] [address] Social History Tobacco Use Types Packs/Day Years Used Date Smoking Tobacco: Former Smokeless Tobacco: Never Alcohol Use Standard Drinks/Week Comments Not Currently 0 (1 standard drink = 0.6 oz pur e alcohol) [facility] Utilities Answer Date Recorded In the [...] 11:20 AM EDT Office Visit Cardiology at [address] [phone] Izaiah Meyer MD [facility] [place] [address] documented as of this encounter Procedures Procedure Name Priority Date/Time Associated Diagnosis Comments ECG SCAN Routine 11/18/2023 4:50 PM EDT documented in this encounter Results * Scan Doc: ECG (11/18/2023 4:50 PM EDT) Historical Provider MEDIA MGR SCAN EX T ORDR/RSLT documented in this encounter Visit Diagnoses Not on filedocumented in this encounter Care Teams Account Management Assistant Relationship Specialty Start Date End Date Rosie Mathews MD [address] [place] [address] PCP - General Family Medicine 11/25/17 11/23/23 documented as of this encounter
--- OUTSIDE RECORDS SUMMARY | 2024-02-13 10:14 | XMS_ITS | Encounter Summary ---
Author Organization Formerly [facility], Later [facility] Address [facility] [place] [address] Care Team Providers Care Innovation Analyst Name Role Phone Rosie Mathews MD Primary Care Provider [phone] Reason for Referral * Consultation (Routine) - Authorized Specialty Diagnoses / Procedures Referred By Contac t Referred To Contact Cardiology Diagnoses 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 Rosa Hugo MD [facility] [place] [address] Cardiac Rehab, [address] [place] [address] Referral ID Status Reason Start Date Expiration Date Visits Requested Visits Authorized [id number] Authorized Consult, Test & Treat Non PCP 11/03/2023 05/01/2024 36 36 * Home Health Care (Routine) - Authorized Specialty Diagnoses / Procedures Referred By Contac t Referred To Contact Diagnoses Unstable angina Rosa Hugo MD [facility] [place] [address] Referral ID Status Reason Start Date Expiration Date Visits Requested Visits Authorized [id number] Authorized Consult, Test & Treat 11/03/2023 05/01/2024 999 999 Reason for Visit * Auth/Cert (Routine) Specialty Diagnoses / Procedures Referred By John hunt Referred To Contact Diagnoses Unstable angina Chest pain NSTEMI Procedures CARDIAC CATHETERIZATION Rosa Dewey MD [facility] [place] [address] [facility] Referral ID Status Reason Start Date Expiration Date Visits Re quested Visits Authorized [id number] 1 1 Encounter Details Date Type Department Care Team (Latest Contact Info) Description 10/30/2023 5:11 PM EDT - 11/03/2023 5:13 PM EDT Hospital Encounter Heart and Vascular Unit Level 4 [place] [address] Rosa Dewey MD [facility] [place] [address] Jean Laboy MD [facility] [address] Rosa Hugo MD [facility] [place] [address] 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; Tachycardia; Unstable angina Discharge Disposition: Home Social History Tobacco Use Types Packs/Day Years Used Date Smoking Tobacco: Former Smokeless Tobacco: Never Alcohol Use Standard Drinks/Week Comments Not Currently 0 (1 standard drink = 0.6 oz pur e alcohol) [facility] Utilities Answer Date Recorded In the past 12 months has e [employer], gas, oil, or water [employer] threatened to shut off services in [...] [facility] a transfer from [facility] as a possible STEMI alert with acute onset chest pain. The patient reports that her symptoms initially began on Tuesday when she was walking to [employer] and experienced bilateral arm heaviness while walking with no other symptoms. Then, this afternoon shereports developing bilateral achy shoulder pain and nonradiating substernal left-sided chest pressure that was 7/10 in severity after coming home from [facility]. The patient denies any associated fevers, chills, diaphoresis, lightheadedness/dizziness, syncope/presyncope, dyspnea (either at rest or on exertion), palpitations, orthopnea, or PND. The patient subsequently presented to [facility] as a walk-in for further evaluation. Upon [...] the patient was taken directly to the Lacquer Spray Booth Operator. Two lesions were discovered: one in the prox RCA (felt to almost be a SENIOR SHAREPOINT ARCHITECT but they were able to wire, balloon, [...] dose administered prior to arrival in the clinical laboratory director. Recommended anti-platelet/anti-thrombotic regimen: Continue aspirin 81 mg [...] and low lung volumes. Findings similar to aircraft pilot radiograph from CT 10/30/2023. Pending Studies and [...] 10:40 AM Izaiah Meyer MD Cardiology at [place] Arrive at: [facility] [address] [phone] Future Orders Complete By Expires Referral to Cardiac Rehab [[id number] Custom] As directed Process Instructions: If no progress note charted, please enter Clinical details in comments. Scheduling Instructions: Questions: My question or request is: STEMI. Cardiac rehab at [facility]. Referral to Home Health [[id number] Custom] As directed Process Instructions: If no progress note charted, please enter Clinical details in comments. Scheduling Instructions: Comments: Please evaluate Adin Santos for admission to Home Health. [address] [facility] [address] (home) Date of : 1940 Inpatient DOCUMENTATION FOR VNA SERVICES (INCLUDING THOSE PATIENTS WITH MEDICARE COVERAGE REQUIRING HOME VNA SERVICES AND/OR HOSPICE SERVICES) PATIENT'S LOCATION: Adin Santos [address] [facility] [phone] (home) Cell: Telephone Information: Art Editor's Name: self In discussion with the attending physician, it is certified that this patient is under their care and that they, or a Nurse Practitioner, Clinical Nurse specialist or Physician Set Up Inspector who is working directly with them, had [...] regarding health issues HOME HEALTH CARE AGENCY: [facility] [address] [place] [address] START OF CARE: within 24-48 hours of [...] Rosie Mathews MD [address] / [facility] [address] . All A agencies which cover [...] Mathews MD / Dr. Masood Pierson [address] [place] [address] 11/09/23 1:55 PM arrival for 2:10 PM appointment Public Utilities Sales Representative: Izaiah Meyer MD [address] [place] [phone] , 11/24/2023 10:40 AM Your Inpatient Medical Team at [facility] Name(s) of your inpatient provider(s): Attending physician: Rosa Hugo MD Resident physicians: Emile Robles MD; Elmer Tamez MD If you have non-emergent questions, prior to your follow-up visit call: Tuesday-Tuesday between the hours of 8AM-5PM please call the Cardiology Clinic [phone] to speak with a nurse. All other hours please call the Hospital Plant Operations Engineer [phone] and ask to speak to the director cardiology on-call. Your Primary Care Provider Rosie Mathews MD [phone] For questions regarding this document or issues relating to this hospitalization on the Medical Service, please contact your inpatient physician through the [facility] Plant Operations Engineer . Issues afterhours and on weekends will be handled by the Public Utilities Sales Representative staff on-call. Associated attestation - Rosa Hugo [...] MD / Dr. Masood Pierson [address] [place] [address] 11/09/23 1:55 PM arrival for 2:10 PM appointment Public Utilities Sales Representative: Izaiah Meyer MD [address] [place] [address] , 11/24/2023 10:40 AM Your Inpatient Medical Team at [facility] Name(s) of your inpatient provider(s): Attending physician: Rosa Hugo MD Resident physicians: Emile Robles MD; Elmer Tamez MD If you have non-emergent questions, prior to your follow-up visit call: Tuesday-Tuesday between the hours of 8AM-5PM please call the Cardiology Clinic [phone] to speak with a nurse. All other hours please call the Hospital Plant Operations Engineer [phone] and ask to speak to the director cardiology on-call. Your Primary Care Provider Rosie Mathews MD [phone] documented in this encounter Medications at Time [...] [facility] a transfer from [facility] as a possible STEMI alert with acute [...] [facility] transfer from [facility] as a possible STEMI alert with acute [...] Resident on Cardiology Service Cardiology S1 (Pager [phone]) Note written in conjunction with Claudio Perla [facility] Medical Student, MS3 Associated attestation [...] Nirmala Webb - 11/01/2023 11:25 AM EDT Press Department Manager Encounter Note Patient Name: Adin Santos : [id number] MR#: [id number] Admit Date: 10/30/2023 5:11 PM Hospital Day 2 days Narrative: Self initiated visit to patient for Spiritual support in a regular unit rounds. Assessment: Patient is in the bathroom at the time of this visit. Not a good time for Mobile Home Set Up Person visit. Intervention and Outcome: An attempted visit [...] [facility] transfer from [facility] as a possible STEMI alert with acute [...] and low lung volumes. Findings similar to aircraft pilot radiograph from CT 10/30/2023. Scheduled Medications: [AUG [...] [facility] a transfer from [facility] as a possible STEMI alert with acute [...] Resident on Cardiology Service Cardiology S1 (Pager [phone]) Note written in conjunction with Claudio Perla [facility] Medical Student, MS3 Associated attestation [...] [facility] a transfer from [facility] as a possible STEMI alert with acute onset chest pain. Active Problems: Active Hospital Problems Diagnosis Unstable angina Resolved Hospital Problems No resolved problems to display. 24 hr events: - Cath'd yesterday with lesion in the proximal RCA (initially thought it was SENIOR SHAREPOINT ARCHITECT but they were ableto wire, balloon and [...] and low lung volumes. Findings similar to aircraft pilot radiograph from CT 10/30/2023. TTE (05/13): Interpretation Summary -The left ventricle is of normal size. There is moderately increased thickness of the basal septum with no obstruction to LV outflow. The left ventricular systolic function is normal with an ejection fraction of 64% by Pyel's biplane. There is hypokinesis of the basal [...] [facility] a transfer from [facility] as a possible STEMI alert with acute [...] Resident on Cardiology Service Cardiology S1 (Pager [phone]) Note written in conjunction with Claudio Perla [facility] Medical Student, MS3 Associated attestation [...] PCP: Rosie Mathews MD PCP phone number: [phone] Date of Admission: 10/30/2023 ( Hospital Day 0 days ) Attending:Rosa Cornejo MD ID: Adin Santos is a 83 y.o. female PMH significant for hypertension and hyperlipidemia who presented to [facility] as a transfer from [facility] as a possible STEMI alert with acute onset chest pain. The patient reports that her symptoms initially began on Tuesday when she was walking to [employer] and experienced bilateral arm heaviness while walking with no other symptoms. Then, this afternoon shereports developing bilateral achy shoulder pain and nonradiating substernal left-sided chest pressure that was 7/10 in severity after coming home from [facility]. The patient denies any associated fevers, chills, diaphoresis, lightheadedness/dizziness, syncope/presyncope, dyspnea (either at rest or on exertion), palpitations, orthopnea, or PND. The patient subsequently presented to [facility] as a walk-in for further evaluation. Upon [...] the patient was taken directly to the Lacquer Spray Booth Operator. 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 Findings similar to aircraft pilot radiograph from CT 10/30/2023. Assessment & Plan: Adin Santos is a 83 y.o. female PMH significant for hypertension and hyperlipidemia who presented to [facility] as a transfer from [facility] as a possible STEMI alert with acute [...] 80 mg daily Plan to start beta krisyt tomorrow first dost given post cath Formal [...] with HTN HLD transferred with chest from [facility]. BP 217/68, HR 71 EKG with [...] information for follow-up Home Health & Hospice, [place] [address] [place] [address] TANESHA BOYCE confirmed with [facility] that they will see the patient within 24-48 hours of discharge for start of care. Transportation: family or friend will provide Wheelchair van/Ambulance? No Functional status prior to admission: Assistive Equipment Home Environment: Others in the home: alone. Current Living Arrangements: home/apartment/condo. Accessibility Concerns:1st floor apartment in fpc community; handicapped accessible. Current Functional Ability: Assistive Equipment DME used at home: cane - straight, grab bar - tub/shower, grab bar - toilet, raised toilet seat DME Needed at Discharge: N/A Patient is insured through: Primary Insurance: [employer] MANAGED MEDICARE Payor: [employer] MEDICARE / Plan: [employer] MANAGED MEDICARE PPO / Product Type: *No [...] the room. Electrolytes replaced, see MAR. laboratory apparatus glass grinder sites remained C/D/I with baseline ecchymosis unchanged. Pt complained of back pain, lidocaine patch given. Right IV infiltrated during infusion, patient is marked with sharpie, IV removed. See flowsheet for I+O's and safety rounding. Patient is able to make needs known and call capps within reach. PLAN MOVING FORWARD: Monitor Tele, control BP, monitor clinical laboratory director sites, D/C Planning INDIVIDUALIZED FALL PREVENTION INTERVENTIONS: [...] in an outpatient cardiac rehabilitation program at [facility] was discussed. Patient agrees to a [...] and above on RA. PT went to clinical laboratory director today. Left fem site oozed throughout shift, [...] MOVING FORWARD: Monitor Tele, control BP, monitor clinical laboratory director sites, D/C Planning INDIVIDUALIZED FALL PREVENTION INTERVENTIONS: [...] Admitted From: Transfer from another hospital Location: [facility] Reason for Hospitalization: chest pain Covid [...] 180 days) Any patient receiving care in [place] must abide by [place] law. The hierarchy [...] The agent with financial power of commercial real estate attorney or a conservator appointed in accordance [...] Arrangements: home/apartment/condo. Accessibility Concerns:1st floor apartment in f[place] community; handicapped accessible. In the last 12 months, was there a time when you were not able to pay the mortgage or rent on time?: No In the last 12 months, how many places have you lived?: 1 In the last 12 months, was there a time when you did not have a steady place to sleep or slept in [facility] (including now)?: No In the past [...] toilet seat Home Address confirmed as: [address] [place] [phone] Social & Family Supports: All names listed below confirmed with patient as current and correct Extended Emergency Contact Information Primary Emergency Contact: Iris Downing Address: [address] [place], [place] [address] [place] [address] Mobile Relation: Child Secondary Emergency Contact: Karen More Address: [address] [facility] Mobile Relation: Child Current Care Provided by: self Provides Primary Care For: no one Caregiver if needed: child(emmanuel), adult Quality of Family relationships: involved, supportive Community Resources being provided currently: other (see comments) (receives [facility] services at home (1xweekly)) Behavioral Health [...] Insurance: N/A Prescription Coverage: Yes Preferred Pharmacy: [id number] - [place], [place] - [address] [facility] [address] [facility] [address] Status: Patient is a : No Primary Care Provider listed: Masood Pierson MD [phone] Patient/Caregiver Goals of Treatment: home when MR Potential Needs for Transition of Care: home health care Agency Referrals: Not Applicable I have met with the patient to: discuss discharge planning needs. provide the [facility], Office of Care Management letter from the Waste Water Worker pertaining to rehab referrals. provide a letter describing our affiliations within the [facility] and educate about their right to choose where referrals are sent. provide a list of Home Health Agencies / Durable Medical Equipment vendors which serve their preferred geographic area. provided patient with [facility] Star Quality Rating handout. They have requested referrals to: [facility] [address] [place] [address] Note routed to a High School Science Tutor who will communicate referrals to facilities and [...] PO hydralazine added for BP control. laboratory apparatus glass grinder sites remain C/D/I, ecchymosis unchanged th roughout shift. See flowsheet for I+O's and safety rounding. Patient is able to make needs known and call capps within reach. PLAN MOVING FORWARD: Monitor Tele, control CP and BP, NPO at MD for cath, monitor clinical laboratory director sites, D/C Planning INDIVIDUALIZED FALL PREVENTION INTERVENTIONS: [...] AM EDT Office Visit Cardiology at [address] [place] [address] Izaiah Meyer MD [facility] [place] [address] Scheduled Referrals Name Type Priority Associated Diagnoses [...] 3:46 AM EDT) Neutrophil % 63.3 % [facility] Neutrophil Absolute 5.28 1.70 - 6.10 x10(3)/mc L [facility] Lymph % 15.2 % [facility] Lymphocytes Abs 1.3 0.9 - 3.2 x10(3)/ L [facility] Monocyte % 16.9 % [facility] Monocyte Abs 1.4(H) 0.3 - 0.9 x10(3)/ L [facility] Eos % 3.7 % [facility] Eosinophils Abs 0.3 0.0 - 0.4 x10(3)/[facility] Basophil % 0.5 % [facility] Baso Absolute 0.0 0.0 - 0.1 x10(3)/ L [facility] Immature Gran % 0.40 % [facility] Comment: Immature granulocytes(IG's)percentage and absolute count will include metamyelocytes, myelocytes, and promyelocytes. Blood smears from CBCs yielding IG's will be scanned manually for concordance. If this scan disagrees with the automated IG or if promyelocytes are noted, a manual differential will be performed. Immature Gran Absolute 0.03 0.00 - 0.04 x10(3)/mc L [facility] Blood 11/03/2023 3:46 AM EDT 11/03/2023 4:11 AM EDT Narrative Resulting Agency Comment Spec In Lab Qamar Gallardo MD HEMATOLOGY ORDERABLE S [facility] [place] [address] * (ABNORMAL) Hemogram (11/03/2023 3:46 AM EDT) White Blood Cell 8.3 4.0 - 9.5 x10(3)/mc L [facility] Red Blood Cell 3.77(L) 4.00 - 5.21 x10(6)/mc L [facility] Hemoglobin 13.1 11.7 - 15.5 g/dL [facility] Hematocrit 38.0 35.7 - 45.8 % [facility] Mean Cell Volume 100.8(H) 82.6 - 94.4 fL [facility] Mean Cell Hemoglobin 34.7(H) 27.1 - 32.0 pg [facility] Mean Cell Hemoglobin Concentration 34.5 31.7 - 35.0 g/dL [facility] Platelet 181 145 - 357 x10(3)/[facility] RDW Standard Deviation 54.7(H) 37.0 - 46.0 [facility] RDW coefficient of variation 14.6(H) 11.5 - 14.1 % [facility] Mean Platelet Volume 11.2 7.6 - 12.9 [facility] NRBC% auto 0.0 % [facility] NRBC Absolute 0.000 0.000 - 0.000 x10(3)/ L [facility] Blood 11/03/2023 3:46 AM EDT 11/03/2023 4:11 AM EDT Narrative Resulting Agency Comment Spec In Lab Qamar Gallardo MD HEMATOLOGY ORDERABLE S [facility] [place] [address] * Phosphorus (11/03/2023 3:46 AM EDT) Phosphorus 3.2 2.5 - 4.5 mg/dL [facility] Comment:result rechecked-KS Blood 11/03/2023 3:46 AM EDT 11/03/2023 4:11 AM EDT Narrative Resulting Agency Comment Spec In Lab Rosa Cornejo MD CHEMISTRY ORDERABLE S [facility] [place] [address] * Magnesium (11/03/2023 3:46 AM EDT) Magnesium 0.90 0.69 - 1.07 mmol/L [facility] Blood 11/03/2023 3:46 AM EDT 11/03/2023 4:11 AM EDT Narrative Resulting Agency Comment Spec In Lab Rosa Cornejo MD CHEMISTRY ORDERABLE S Performing Organization Address City/[facility]/ZIP Co de Phone Number [facility] [place] [address] * (ABNORMAL) Basic Metabolic Panel (non-fasting) (11/03/2023 3:46 AM EDT) Glucose 105 65 - 199 mg/dL [facility] Comment:Diabetes: >=200 mg/d L plus symptoms Blood Urea Nitrogen 13 8 - 18 mg/dL [facility] Creatinine 0.83 0.70 - 1.20 mg/dL [facility] Sodium 139 135 - 145 mmol/L [facility] Potassium 4.0 3.5 - 5.0 mmol/L [facility] Comment: Please note: ??Patients with WBC >100,000 may have falsely elevated Potassium levels. ??For accurate Potassium quantification in these patients send serum separator tube (gold top) for subsequent determinations. ??Contact the Clinical Chemistry Laboratory if there are any questions. Chloride 108(H) 98 - 107 mmol/L [facility] Carbon Dioxide 19(L) 22 - 31 mmol/L [facility] Anion Gap 12 5 - 15 mmol/L [facility] Calcium 8.2(L) 8.5 - 10.5 mg/dL [facility] Est Glomerular Filtration Rate 69 >=60 mL/min/1. 73 m?? [facility] Comment: This patient's estimated GFR [...] Lab Rosa Cornejo MD CHEMISTRY ORDERABLE S [facility] [place] [id number] * EKG 12 Lead (11/02/2023 12:44 PM EDT) Ventricular rate 83 BPM MUSE SYSTEM Atrial Rate 83 BPM MUSE SYSTEM P-R Interval 216 ms MUSE SYSTEM QRS Duration 90 ms MUSE SYSTEM Q-T Interval 384 ms MUSE SYSTEM QTC Calculated (Bezet) 451 ms MUSE SYSTEM Calculated P Garland 92 degrees MUSE SYSTEM Calculated R Garland -51 degrees MUSE SYSTEM Calculated T Garland -33 degrees MUSE SYSTEM INTERPRETATION Sinus rhythm with 1st degree A-V block with Premature atrial complexes Left axis deviation Moderate voltage criteria for LVH, may be normal variant ( R in aVL , Ifeanyi product ) Anterolatera l infarct (cited on or before 01-NOV-2023) Abnormal ECG When compared with ECG of 01-NOV-2023 22:10, Premature atrial complexes are now Present [place] interval has increased Vent. rate has decreased [...] specimen volume Bacteria, Urine Many(A) None /HPF [facility] Squamous Epithelial Cells Raw Data, Urine 10(H) <=4 /HPF [facility] Hyaline Casts, Urine 2 0 - 2 /LPF [facility] Comment: Interpret results with caution, microscopic results are from suboptimal specimen volume Clean Catch Urine 11/02/2023 11:40 AM EDT 11/02/2023 12:05 PM EDT Narrative Resulting Agency Comment Spec In Lab Elmer Tamez MD URINE ORDERABLES Performing Organization Address City/[facility] Co de Phone Number [facility] [place] [address] * (ABNORMAL) Urinalysis with reflex Culture (11/02/2023 11:40 AM EDT) Glucose, Urine Dipstick Negative Negative mg/dL [facility] Protein, Urine Dipstick 30(A) Negative mg/dL [facility] Bilirubin, Urine Dipstick Negative Negative mg/dL [facility] Comment: Clinical correlation required for positive Urine Bilirubin results as false positive may occur with some drugs and drug related products. If a false positive is suspected a serum total bilirubin should be considered if clinically indicated. Urobilinogen, Urine Dipstick Normal Normal mg/dL [facility] pH, Urn (dipstick) 5.5 5.0 - 8.0 [facility] Blood, Urine Dipstick Negative Negative mg/dL [facility] Ketone, Urine Dipstick Trace(A) Negative mg/dL [facility] Nitrite, Urine Dipstick Positive(A) Negative [facility] Leukocytes, Urine Dipstick Small(A) Negative [facility] Appearance, Urine Dipstick Cloudy(A) Clear [facility] Specific [place] Urine Automated >=1.030(A) 1.005 - 1.030 [facility] Color, Urine Dipstick Dark Yellow Yellow [facility] Reflex to Culture Yes [facility] Clean Catch Urine 11/02/2023 11:40 AM EDT 11/02/2023 12:04 PM EDT Narrative Resulting Agency Comment Spec In Lab Rosa Hugo MD URINE ORDERABLES Performing Organization Address City/State/[facility] Co de Phone Number [facility] [place] [address] * Respiratory Panel PCR (11/02/2023 10:15 AM EDT) Respiratory Panel Source CUTTER OPERATOR TILE Swab [facility] Respiratory Panel PCR Negative Negative [facility] Comment: Respiratory Panels are performed on the CD[employer] Infot[employer], using multiplexed PCR nucleic acid detection. ??Negative results do not preclude respiratory infection and should not be used as the sole basis for diagnosis, treatment or other management decisions. Adenovirus Not Detected Not Detected [facility] Coronavirus HKU1 Not Detected Not Detected [facility] Coronavirus NL63 Not Detected Not Detected [facility] Coronavirus 229E Not Detected Not Detected [facility] Coronavirus OC43 Not Detected Not Detected [facility] SARS-CoV-2 Not Detected Not Detected [facility] Comment: Testing for SARS-CoV-2 (Severe acute respiratory syndrome coronavirus 2) to aid in the diagnosis of COVID-19 is performed using the BioFire Respiratory Panel 2.1 (Marginize) as authorized by the FDA issued Emergency Use Authorization (EUA). This panel also tests for multiple other viral and bacterial pathogens. This assay is intended for In-vitro Diagnostic (IVD) use with nasopharyngeal swabs in viral transport media. The assay is performed based on the instructions for use and additional guidance provided by the FDA. Testing is performed in laboratories within the [facility], each of which is certified [...] fact sheets at the following FDA website: https://www.fda.gov/medical-devices/agtteyfezgg-snfeoum-8996-ewjzd-67-fbzoaobgb- use-a bednjlzluuqwc-eigsuig-xevepnk/udivj-uzfflkcqvha-bcdh Human Metapneumovirus Not Detected Not Detected [facility] Human Rhinovirus/Enterov irus Not Detected Not Detected [facility] Influenza A Not Detected Not Detected [facility] Influenza B Not Detected Not Detected [facility] Parainfluenza 1 Not Detected Not Detected [facility] Parainfluenza 2 Not Detected Not Detected [facility] Parainfluenza 3 Not Detected Not Detected [facility] Parainfluenza 4 Not Detected Not Detected [facility] Respiratory Syncytial Virus Not Detected Not Detected [facility] Chlamydophila pneumoniae Not Detected Not Detected [facility] Mycoplasma pneumoniae Not Detected Not Detected [facility] Nasopharyngeal Swab 11/02/19 10:15 AM EDT 11/02/2023 10:49 AM EDT Narrative Resulting Agency Comment Spec In Lab Rosa Hugo MD MICROBIOLOGY - GEN ERAL ORDERABLES [facility] [place] [address] * XR Chest One View (11/02/2023 2:51 AM EDT) WORKSTATION ID [id number] RAD Anatomical Region Laterality Modality Chest N/A [...] have questions please contact the health rn progressive care unit that requested your imaging first. ? Electronically signed by: Omaira Tran MD, [facility] ([phone]), at 11/02/2023 4:56 AM Narrative 11/02/2023 4:56 [...] who have questions please contactthe health rn progressive care unit that requested your imaging first. Electronically signed by: Omaira Tran MD, [facility]([phone]), at 11/02/2023 4:56 AM Rosa Hugo MD IMG DX ORDERABLES * (ABNORMAL) Differential, Automated (11/02/2023 12:35 AM EDT) Neutrophil % 76.5 % [facility] Neutrophil Absolute 7.69(H) 1.70 - 6.10 x10(3)/mc L [facility] Lymph % 8.3 % [facility] Lymphocytes Abs 0.8(L) 0.9 - 3.2 x10(3)/mc L [facility] Monocyte % 12.9 % [facility] Monocyte Abs 1.3(H) 0.3 - 0.9 x10(3)/mc L [facility] Eos % 1.4 % [facility] Eosinophils Abs 0.1 0.0 - 0.4 x10(3)/mc L [facility] Basophil % 0.4 % [facility] Baso Absolute 0.0 0.0 - 0.1 x10(3)/mc L [facility] Immature Gran % 0.50 % [facility] Comment: Immature granulocytes(IG's)percentage and absolute count will include metamyelocytes, myelocytes, and promyelocytes. Blood smears from CBCs yielding IG's will be scanned manually for concordance. If this scan disagrees with the automated IG or if promyelocytes are noted, a manual differential will be performed. Immature Gran Absolute 0.05(H) 0.00 - 0.04 x10(3)/mc L [facility] Blood 11/02/2023 12:3 5 AM EDT 11/02/2023 12:43 AM EDT Narrative Resulting Agency Comment Spec In Lab Qamar Gallardo MD HEMATOLOGY ORDERABLE S [facility] [place] [address] * (ABNORMAL) Hemogram (11/02/2023 12:35 AM EDT) White Blood Cell 10.0(H) 4.0 - 9.5 x10(3)/mc L [facility] Red Blood Cell 4.06 4.00 - 5.21 x10(6)/mc L [facility] Hemoglobin 13.8 11.7 - 15.5 g/dL [facility] Hematocrit 39.8 35.7 - 45.8 % [facility] Mean Cell Volume 98.0(H) 82.6 - 94.4 fL [facility] Mean Cell Hemoglobin 34.0(H) 27.1 - 32.0 pg [facility] Mean Cell Hemoglobin Concentration 34.7 31.7 - 35.0 g/dL [facility] Platelet 198 145 - 357 x10(3)/mc L [facility] RDW Standard Deviation 52.1(H) 37.0 - 46.0 fL [facility] RDW coefficient of variation 14.3(H) 11.5 - 14.1 % [facility] Mean Platelet Volume 11.4 7.6 - 12.9 [facility] NRBC% auto 0.0 % [facility] NRBC Absolute 0.000 0.000 - 0.000 x10(3)/ L [facility] Blood 11/02/2023 12:3 5 AM EDT 11/02/2023 12:43 AM EDT Narrative Resulting Agency Comment Spec In Lab Qamar Gallardo MD HEMATOLOGY ORDERABLE S [facility] [place] [address] * (ABNORMAL) Phosphorus (11/02/2023 12:35 AM EDT) Phosphorus 1.6(L) 2.5 - 4.5 mg/dL [facility] Blood 11/02/2023 12:3 5 AM EDT 11/02/2023 12:43 AM EDT Narrative Resulting Agency Comment Spec In Lab Rosa Cornejo MD CHEMISTRY ORDERABLE S [facility] [place] [address] * Magnesium (11/02/2023 12:35 AM EDT) Pathologist [facility] Magnesium 0.87 0.69 - 1.07 mmol/L [facility] Blood 11/02/2023 12:3 5 AM EDT 11/02/2023 12:43 AM EDT Narrative Resulting Agency Comment Spec In Lab Rosa Cornejo MD CHEMISTRY ORDERABLE S Performing Organization Address City/[facility]/ZIP Co de Phone Number [facility] [place] [address] * Basic Metabolic Panel (non-fasting) (11/02/2023 12:35 AM EDT) Glucose 125 65 - 199 mg/dL [facility] Comment:Diabetes: >=200 mg/d L plus symptoms Blood Urea Nitrogen 9 8 - 18 mg/dL [facility] Creatinine 0.83 0.70 - 1.20 mg/dL [facility] Sodium 136 135 - 145 mmol/L [facility] Potassium 3.6 3.5 - 5.0 mmol/L [facility] Comment: Please note: ??Patients with WBC >100,000 may have falsely elevated Potassium levels. ??For accurate Potassium quantification in these patients send serum separator tube (gold top) for subsequent determinations. ??Contact the Clinical Chemistry Laboratory if there are any questions. Chloride 102 98 - 107 mmol/L [facility] Carbon Dioxide 25 22 - 31 mmol/L [facility] Anion Gap 9 5 - 15 mmol/L [facility] Calcium 9.0 8.5 - 10.5 mg/dL [facility] Est Glomerular Filtration Rate 69 >=60 mL/min/1. 73 m?? [facility] Comment: This patient's estimated GFR [...] Lab Rosa Cornejo MD CHEMISTRY ORDERABLE S [facility] [place] [address] * Blood culture (11/02/2023 12:35 AM EDT) Blood Culture No growth at 5 days. [facility] Blood 11/02/2023 12:3 5 AM EDT 11/02/2023 1:55 AM EDT Comment:#2 site ukn Narrative Resulting Agency Comment Spec In Lab Rosa Hugo MD MICROBIOLOGY - BLO OD ORDERABLES [facility] [place] [address] * Blood culture (11/02/2023 12:15 AM EDT) Blood Culture No growth at 5 days. [facility] Blood 11/02/2023 12:1 5 AM EDT 11/02/2023 1:54 AM EDT Comment:#1site unk Narrative Resulting Agency Comment Spec In Lab Rosa Hugo MD MICROBIOLOGY - BLO OD ORDERABLES Performing Organization Address City/[facility]/ZIP Co de Phone Number [facility] [place] [address] * EKG 12 Lead (11/01/2023 10:10 PM EDT) Ventricular rate 139 BPM MUSE SYSTEM Atrial Rate 139 BPM MUSE SYSTEM P-R Interval 168 ms MUSE SYSTEM QRS Duration 84 ms MUSE SYSTEM Q-T Interval 286 ms MUSE SYSTEM QTC Calculated (Bezet) 435 ms MUSE SYSTEM Calculated R Garland -59 degrees MUSE SYSTEM Calculated T Garland -27 degrees MUSE SYSTEM INTERPRETATION Mid-RP tachycardia, consider sinus tachycardia or SVT Left axis deviation Moderate voltage criteria for LVH, may be normal variant ( R in aVL , [place] product ) Inferior infarct (cited on or before 01-NOV-2023) Anterolateral infarct (cited on or before 01-NOV-2023) Abnormal ECG When compared with ECG of 01-NOV-2023 15:22, Vent. rate Although rate has increased Serial changes of Anterior infarct Present I personally reviewed the tracing and edited the fellows interpretation Confirmed by fellow MD Andrés, Enriqueta ([id number]) on 11/04/2023 7:57:50 AM Confirmed by MD Gerardo, Shameka ([id number]) on 11/04/2023 4:32:03 PM MUSE SYSTEM 11/01/2023 10:1 0 PM EDT 11/04/2023 4:32 PM EDT Rosa Cornejo MD ECG ORDERABLES Performing Organization Address City/[facility]/ZIP Co de Phone Number MUSE SYSTEM * (ABNORMAL) Hemogram (11/01/2023 10:06 PM EDT) White Blood Cell 10.4(H) 4.0 - 9.5 x10(3)/ L [facility] Red Blood Cell 4.11 4.00 - 5.21 x10(6)/ L [facility] Hemoglobin 14.0 11.7 - 15.5 g/dL [facility] Hematocrit 41.1 35.7 - 45.8 % [facility] Mean Cell Volume 100.0(H) 82.6 - 94.4 fL [facility] Mean Cell Hemoglobin 34.1(H) 27.1 - 32.0 pg [facility] Mean Cell Hemoglobin Concentration 34.1 31.7 - 35.0 g/dL [facility] Platelet 197 145 - 357 x10(3)/[facility] RDW Standard Deviation 54.0(H) 37.0 - 46.0 fL [facility] RDW coefficient of variation 14.6(H) 11.5 - 14.1 % [facility] Mean Platelet Volume 11.2 7.6 - 12.9 fL [facility] NRBC% auto 0.0 % [facility] NRBC Absolute 0.000 0.000 - 0.000 x10(3)/[facility] Blood 11/01/2023 10:0 6 PM EDT 11/01/2023 10:22 PM EDT Narrative Resulting Agency Comment Spec In Lab Rosa Hugo MD HEMATOLOGY ORDERAB LES [facility] [place] [address] * POCT Glucose (11/01/2023 5:59 PM EDT) Glucose, POC 104 65 - 199 mg/dL [facility] Comment: Supplemental ranges: <140 mg/dL before meals <180 mg/dL all other times of the day Blood 11/01/2023 5:59 PM EDT 11/01/2023 5:59 PM EDT Rosa Hugo MD POINT OF CARE TEST ORDERABLES [facility] [place] [address] * POCT Glucose (11/01/2023 5:35 PM EDT) Glucose, POC 85 65 - 199 mg/dL [facility] Comment: Supplemental ranges: <140 mg/dL before meals <180 mg/dL all other times of the day Blood 11/01/2023 5:35 PM EDT 11/01/2023 5:35 PM EDT Rosa Hugo MD POINT OF CARE TEST ORDERABLES Performing Organization Address City/[facility] Co de Phone Number [facility] [place] [address] * EKG 12 Lead (11/01/2023 3:22 PM EDT) Ventricular rate 59 BPM MUSE SYSTEM Atrial Rate 59 BPM MUSE SYSTEM P-R Interval 220 ms MUSE SYSTEM QRS Duration 94 ms MUSE SYSTEM Q-T Interval 428 ms MUSE SYSTEM QTC Calculated (Bezet) 423 ms MUSE SYSTEM Calculated P Garland 76 degrees MUSE SYSTEM Calculated R Garland -50 degrees MUSE SYSTEM Calculated T Garland -59 degrees MUSE SYSTEM INTERPRETATION Sinus bradycardia [...] Modality Other Narrative 11/02/2023 4:57 PM EDT ?[facility] ? Cardiac Catheterization/Intervention Report ? Patient Name: Joleen, Adin Catherine. ? Procedure Date: 11/01/2023 ? A #: [id number] ? Primary Physician: Rosa Dewey I ? Case #: [id number] ? File Name: [id number] ? Catheterization Order Number: [id number] ? [facility] ?[facility] ? Final Report [place], [place] ? Patient Name: ? Adin Townsendjosue ?ID#: ?[id number] ? : ?1940 ? Procedure Date: ? [...] procedure was Urgent. The indication for ?the clinical laboratory director visit is ACS greater than 24 hrs. [...] ??A premounted ? 3.50 x 15 mm [place] (RADHA) was deployed with a maximum ? [...] ? A premounted 3.50 x 15 mm [place] (RADHA) was deployed ? with a maximum [...] dose administered prior to arrival in the clinical laboratory director. ?Recommended anti-platelet/anti-thrombotic regimen: ?Continue aspirin 81 mg [...] Note Otto, Rosa I, MD - 12/12/2023 [facility] Cardiac Catheterization/Intervention Report Patient Name: Adin Santos Procedure Date: 11/01/2023 A #: [id number] Primary Physician: Rosa Dewey I Case #: [id number] File Name: [id number] Catheterization Order Number: [id number] [facility] FinalReport [place], [place] Patient Name: Adin Santos ID#:[id number] :1940 Procedure Date: November 01, 2023 Case [...] diagnostic procedure was Urgent. The indicationfor the clinical laboratory director visit is ACS greater than 24 hrs. [...] 14 atmospheres. Apremounted 3.50 x 15 mm [place] (RADHA) was deployed with amaximum inflation pressure [...] The lesion was predilated with a 3.00mm [id number] MM balloon with a maximum inflation pressure of 14atmospheres. A premounted 3.50 x 15 mm [place] (RADHA) wasdeployed with a maximum inflation pressure [...] dose administered prior to arrival in the clinical laboratory director. Recommended anti-platelet/anti-thrombotic regimen: Continue aspirin 81 mg [...] * POCT Glucose (11/01/2023 7:06 AM EDT) [facility] Glucose, POC 93 65 - 199 mg/dL [facility] Comment: Supplemental ranges: <140 mg/dL before meals <180 mg/dL all other times of the day Blood 11/01/2023 7:06 AM EDT 11/01/2023 7:06 AM EDT Jean Laboy MD POINT OF CARE TEST O RDERABLES [facility] [place] [address] * (ABNORMAL) Differential, Automated (11/01/2023 3:09 AM EDT) [facility] Neutrophil % 63.9 % [facility] Neutrophil Absolute 5.54 1.70 - 6.10 x10(3)/mc L [facility] Lymph % 20.0 % [facility] Lymphocytes Abs 1.7 0.9 - 3.2 x10(3)/mc L [facility] Monocyte % 11.9 % [facility] Monocyte Abs 1.0(H) 0.3 - 0.9 x10(3)/mc L [facility] Eos % 3.2 % [facility] Eosinophils Abs 0.3 0.0 - 0.4 x10(3)/mc L [facility] Basophil % 0.5 % [facility] Baso Absolute 0.0 0.0 - 0.1 x10(3)/mc L [facility] Immature Gran % 0.50 % [facility] Comment: Immature granulocytes(IG's)percentage and absolute count will include metamyelocytes, myelocytes, and promyelocytes. Blood smears from CBCs yielding IG's will be scanned manually for concordance. If this scan disagrees with the automated IG or if promyelocytes are noted, a manual differential will be performed. Immature Gran Absolute 0.04 0.00 - 0.04 x10(3)/ L [facility] Blood 11/01/2023 3:09 AM EDT 11/01/2023 3:29 AM EDT Narrative Resulting Agency Comment Spec In Lab Qamar Gallardo MD HEMATOLOGY ORDERABLE S Performing Organization Address City/State/[facility] Co de Phone Number [facility] [place] [address] * (ABNORMAL) Hemogram (11/01/2023 3:09 AM EDT) White Blood Cell 8.7 4.0 - 9.5 x10(3)/ L [facility] Red Blood Cell 3.72(L) 4.00 - 5.21 x10(6)/mc L [facility] Hemoglobin 12.5 11.7 - 15.5 g/dL [facility] Hematocrit 36.8 35.7 - 45.8 % [facility] Mean Cell Volume 98.9(H) 82.6 - 94.4 fL [facility] Mean Cell Hemoglobin 33.6(H) 27.1 - 32.0 pg [facility] Mean Cell Hemoglobin Concentration 34.0 31.7 - 35.0 g/dL [facility] Platelet 184 145 - 357 x10(3)/ L [facility] RDW Standard Deviation 53.5(H) 37.0 - 46.0 fL [facility] RDW coefficient of variation 14.6(H) 11.5 - 14.1 % [facility] Mean Platelet Volume 11.3 7.6 - 12.9 fL [facility] NRBC% auto 0.0 % [facility] NRBC Absolute 0.000 0.000 - 0.000 x10(3)/mc L [facility] Blood 11/01/2023 3:09 AM EDT 11/01/2023 3:29 AM EDT Narrative Resulting Agency Comment Spec In Lab Qamar Gallardo MD HEMATOLOGY ORDERABLE S Performing Organization Address City/[facility]/ZIP Co de Phone Number [facility] [place] [address] * Phosphorus (11/01/2023 3:09 AM EDT) Phosphorus 2.5 2.5 - 4.5 mg/dL [facility] Blood 11/01/2023 3:09 AM EDT 11/01/2023 3:29 AM EDT Narrative Resulting Agency Comment Spec In Lab Rosa Cornejo MD CHEMISTRY ORDERABLE S Performing Organization Address City/[facility]/ZIP Co de Phone Number [facility] [place] [address] * Magnesium (11/01/2023 3:09 AM EDT) Magnesium 0.82 0.69 - 1.07 mmol/L [facility] Blood 11/01/2023 3:09 AM EDT 11/01/2023 3:29 AM EDT Narrative Resulting Agency Comment Spec In Lab Rosa Cornejo MD CHEMISTRY ORDERABLE S Performing Organization Address City/[facility]/ZIP Co de Phone Number [facility] [place] [address] * (ABNORMAL) Basic Metabolic Panel (non-fasting) (11/01/2023 3:09 AM EDT) Glucose 100 65 - 199 mg/dL [facility] Comment:Diabetes: >=200 mg/d L plus symptoms Blood Urea Nitrogen 14 8 - 18 mg/dL [facility] Creatinine 0.83 0.70 - 1.20 mg/dL [facility] Sodium 137 135 - 145 mmol/L [facility] Potassium 3.4(L) 3.5 - 5.0 mmol/L [facility] Comment: Please note: ??Patients with WBC >100,000 may have falsely elevated Potassium levels. ??For accurate Potassium quantification in these patients send serum separator tube (gold top) for subsequent determinations. ??Contact the Clinical Chemistry Laboratory if there are any questions. Chloride 105 98 - 107 mmol/L [facility] Carbon Dioxide 24 22 - 31 mmol/L [facility] Anion Gap 8 5 - 15 mmol/L [facility] Calcium 8.6 8.5 - 10.5 mg/dL [facility] Est Glomerular Filtration Rate 69 >=60 mL/min/1. 73 m?? [facility] Comment: This patient's estimated GFR [...] Lab Rosa Cornejo MD CHEMISTRY ORDERABLE S [facility] [place] [address] * (ABNORMAL) Troponin (10/31/2023 2:46 PM EDT) Troponin-T, High Sensitivity 544(H) <=14 ng/L [facility] Comment: This patient's troponin T [...] troponin value can be found in the [facility] Test Catalog Troponin - [facility] Test Catalog Reference: Fourth [place] Definition of Myocardial Infarction. Journal of the [place] [employer] 2018;72:3188-5319 Blood 10/31/2023 2:46 PM EDT 10/31/2023 2:55 PM EDT Narrative Resulting Agency Comment Spec In Lab Jean Laboy MD CHEMISTRY ORDERABLES [facility] [place] [address] * EKG 12 Lead (10/31/2023 1:07 PM EDT) Ventricular rate 54 BPM MUSE SYSTEM Atrial Rate 54 BPM MUSE SYSTEM P-R Interval 218 ms MUSE SYSTEM QRS Duration 92 ms MUSE SYSTEM Q-T Interval 540 ms MUSE SYSTEM QTC Calculated (Bezet) 512 ms MUSE SYSTEM Calculated P Garland 85 degrees MUSE SYSTEM Calculated R Garland -44 degrees MUSE SYSTEM Calculated T Garland -69 degrees MUSE SYSTEM INTERPRETATION Sinus bradycardia with 1st degree A-V block Left axis deviation Moderate voltage criteria for LVH, may be normal variant ( R in aVL , [place] product ) T wave abnormality, consider inferolateral [...] EDT) Troponin-T, High Sensitivity 580(H) <=14 ng/L [facility] Comment: This patient's troponin T [...] troponin value can be found in the [facility] Test Catalog Troponin - [facility] Test Catalog Reference: Fourth [place] Definition of Myocardial Infarction. Journal of the [employer] 2018;72:8775-1825 Blood 10/31/2023 11:3 7 AM EDT 10/31/2023 11:50 AM EDT Narrative Resulting Agency Comment Spec In Lab Rosa Cornejo MD CHEMISTRY ORDERABLE S Performing Organization Address [facility]/State/ZIP Co de Phone Number [facility] [place] [address] * ECHO COMPLETE (10/31/2023 8:52 AM EDT) Anatomical Region Laterality Modality Cardiac Other 10/31/2023 7:57 AM EDT Narrative 10/31/2023 9:45 AM EDT [address] [place] [address] ? Echocardiogram Report Name: ADIN SANTOS ? Study Date: 10/31/2023 07:57 AMBP: 106/76 mmHg ? Patient Location: [id number] A : 1940 ? Height: 163 cm ? Account: [id number] Age: 83 yrs ? Weight: 76 kg [...] is no prior echocardiogram for comparison. Procedure Complete-07122. Satisfactory quality. There is sinus bradycardia. Left [...] Note Edgard Wang MD - 10/31/2023 [address] [place] [address] Echocardiogram Report Name: ADIN SANTOS Study Date: 407:57 AMBP: 106/76 mmHg Patient Location: [id number] A : 1940 Height: 163 cm Account: [id number] Age: 83 yrs Weight: 76 kg Gender: [...] is no prior echocardiogram for comparison. Procedure Complete-01836. Satisfactory quality. There is sinus bradycardia. Left [...] EDT) Troponin-T, High Sensitivity 571(H) <=14 ng/L [facility] Comment: This patient's troponin T [...] troponin value can be found in the [facility] Test Catalog Troponin - [facility] Test Catalog Reference: Fourth [place] Definition of Myocardial Infarction. Journal of the [employer] 2018;72:7700-3914 Blood 10/31/2023 8:51 AM EDT 10/31/2023 9:12 AM EDT Narrative Resulting Agency Comment Spec In Lab Rosa Cornejo MD CHEMISTRY ORDERABLE S [facility] [place] [address] * CARDIAC CATHETERIZATION (10/31/2023 8:10 AM EDT) Anatomical Region Laterality Modality Other Narrative 11/07/2023 9:42 AM EDT ?[facility] ? Cardiac Catheterization/Intervention Report ? Patient Name: Adin Santos. ? Procedure Date: 10/30/2023 ? A #: [id number] ? Primary Physician: Rosa Dewey I ? Case #: [id number] ? File Name: [id number] ? Catheterization Order Number: [id number] ? [facility] ? Final Report [place], [place] ? Patient Name: ? Adin M. Goguen ?ID#: ?[id number] ? : ?1940 ? Procedure Date: ? [...] procedure was Emergent. The indication for ?the clinical laboratory director visit is ACS less than or equal [...] A premounted 4.00 x 38 mm Andrea Picayune (RADHA) was deployed ? with a maximum [...] dose administered prior to arrival in the clinical laboratory director. ?Recommended anti-platelet/anti-thrombotic regimen: ?Continue aspirin 81 mg [...] Procedure Note Rosa Dewey MD - 12/05/2023 [facility] Cardiac Catheterization/Intervention Report Patient Name: Adin Santos Procedure Date: 10/30/2023 A #: [id number] Primary Physician: Rosa Dewey I Case #: [id number] File Name: [id number] Catheterization Order Number: [id number] [facility] FinalReport [place], [place] Patient Name: Adin CatherineYasir Edvinree ID#:[id number] :1940 Procedure Date: October 30, 2023 Case #: [id number] Room: 5 Case Physician: Rosa Dewey M.D. [...] was designated as ASA Class III. The [facility] clinical frailtyscale is 5: Mildly Frail. Diagnostic Tests: Electrocardiography: EKG was assessed by ECG. EKG was Abnormal. EKG showed STDeviation >= 0.5 mm, other abnormality and dynamic EKG changes. Medications Prior to Procedure: Aspirin, Angiotensin II Receptor Kristy, Beta Kristy andStatin. Indications for Diagnostic Cath: The priority of the diagnostic procedure was Emergent. Theindication for the clinical laboratory director visit is ACS less than or equal [...] The priority for the procedure was Emergent.The [facility] indication for the procedure was STEMI-Immediate [...] A premounted 4.00 x 38 mm Andrea Picayune (RADHA) wasdeployed with a maximum inflation pressure [...] dose administered prior to arrival in the clinical laboratory director. Recommended anti-platelet/anti-thrombotic regimen: Continue aspirin 81 mg [...] * (ABNORMAL) Troponin (10/31/2023 4:21 AM EDT) [facility] Troponin-T, High Sensitivity 457(H) <=14 ng/L [facility] Comment: This patient's troponin T [...] troponin value can be found in the [facility] Test Catalog Troponin - [facility] Test Catalog Reference: Fourth [place] Definition of Myocardial Infarction. Journal of the [employer] 2018;72:6571-4182 Blood 10/31/2023 4:21 AM EDT 10/31/2023 4:30 AM EDT Narrative Resulting Agency Comment Spec In Lab Rosa Cornejo MD CHEMISTRY ORDERABLE S [facility] [place] [address] * (ABNORMAL) Differential, Automated (10/31/2023 3:05 AM EDT) Neutrophil % 71.7 % [facility] Neutrophil Absolute 8.21(H) 1.70 - 6.10 x10(3)/mc L [facility] Lymph % 16.9 % [facility] Lymphocytes Abs 1.9 0.9 - 3.2 x10(3)/mc L [facility] Monocyte % 9.4 % [facility] Monocyte Abs 1.1(H) 0.3 - 0.9 x10(3)/mc L [facility] Eos % 1.3 % [facility] Eosinophils Abs 0.2 0.0 - 0.4 x10(3)/mc L [facility] Basophil % 0.4 % [facility] Baso Absolute 0.0 0.0 - 0.1 x10(3)/mc L [facility] Immature Gran % 0.30 % [facility] Comment: Immature granulocytes(IG's)percentage and absolute count will include metamyelocytes, myelocytes, and promyelocytes. Blood smears from CBCs yielding IG's will be scanned manually for concordance. If this scan disagrees with the automated IG or if promyelocytes are noted, a manual differential will be performed. Immature Gran Absolute 0.04 0.00 - 0.04 x10(3)/mc L [facility] Blood 10/31/2023 3:05 AM EDT 10/31/2023 3:13 AM EDT Narrative Resulting Agency Comment Spec In Lab Qamar Gallardo MD HEMATOLOGY ORDERABLE S [facility] [place] [address] * (ABNORMAL) Hemogram (10/31/2023 3:05 AM EDT) White Blood Cell 11.5(H) 4.0 - 9.5 x10(3)/ L [facility] Red Blood Cell 3.75(L) 4.00 - 5.21 x10(6)/[facility] Hemoglobin 12.6 11.7 - 15.5 g/dL [facility] Hematocrit 37.1 35.7 - 45.8 % [facility] Mean Cell Volume 98.9(H) 82.6 - 94.4 fL [facility] Mean Cell Hemoglobin 33.6(H) 27.1 - 32.0 pg [facility] Mean Cell Hemoglobin Concentration 34.0 31.7 - 35.0 g/dL [facility] Platelet 206 145 - 357 x10(3)/ L [facility] RDW Standard Deviation 53.4(H) 37.0 - 46.0 [facility] RDW coefficient of variation 14.6(H) 11.5 - 14.1 % [facility] Mean Platelet Volume 11.1 7.6 - 12.9 [facility] NRBC% auto 0.0 % [facility] NRBC Absolute 0.000 0.000 - 0.000 x10(3)/ L [facility] Blood 10/31/2023 3:05 AM EDT 10/31/2023 3:13 AM EDT Narrative Resulting Agency Comment Spec In Lab Qamar Gallardo MD HEMATOLOGY ORDERABLE S Performing Organization Address [facility] Co de Phone Number [facility] [place] [address] * (ABNORMAL) APTT (10/31/2023 3:05 AM EDT) Partial Thromboplastin Time 67(H) 25 - 37 sec [facility] Comment: The PTT is NOT appropriate for heparin monitoring. Use the Anti-Xa level for heparin monitoring (HEP UFH) or LMWH monitoring (HEP LMW). A PTT less than 37 seconds generally indicates adequate hemostasis. Blood 10/31/2023 3:05 AM EDT 10/31/2023 3:13 AM EDT Narrative Resulting Agency Comment Spec In Lab Rosa Cornejo MD HEMATOLOGY ORDERABL ES Performing Organization Address [facility] de Phone Number [facility] [place] [address] * (ABNORMAL) Prothrombin Time (10/31/2023 3:05 AM EDT) Prothrombin Time 12.6(H) 9.4 - 12.5 sec [facility] International Normalization Ratio 1.1 [facility] Comment: An INR <2.0 indicates [...] MD HEMATOLOGY ORDERABL ES Performing Organization Address [facility] Co de Phone Number [place] [address] * (ABNORMAL) Differential, Automated (10/31/2023 1:37 AM EDT) Pathologist [facility] Neutrophil % 71.1 % [facility] Neutrophil Absolute 7.53(H) 1.70 - 6.10 x10(3)/ L [facility] Lymph % 18.0 % [facility] Lymphocytes Abs 1.9 0.9 - 3.2 x10(3)/ L [facility] Monocyte % 8.7 % [facility] Monocyte Abs 0.9 0.3 - 0.9 x10(3)/[facility] Eos % 1.6 % [facility] Eosinophils Abs 0.2 0.0 - 0.4 x10(3)/[facility] Basophil % 0.4 % [facility] Baso Absolute 0.0 0.0 - 0.1 x10(3)/[facility] Immature Gran % 0.20 % [facility] Comment: Immature granulocytes(IG's)percentage and absolute count will include metamyelocytes, myelocytes, and promyelocytes. Blood smears from CBCs yielding IG's will be scanned manually for concordance. If this scan disagrees with the automated IG or if promyelocytes are noted, a manual differential will be performed. Immature Gran Absolute 0.02 0.00 - 0.04 x10(3)/ L [facility] Blood 10/31/2023 1:37 AM EDT 10/31/2023 1:46 AM EDT Narrative Resulting Agency Comment Spec In Lab Qamar Gallardo MD HEMATOLOGY ORDERABLE S [facility] [place] [address] * (ABNORMAL) Hemogram (10/31/2023 1:37 AM EDT) Pathologist [facility] White Blood Cell 10.6(H) 4.0 - 9.5 x10(3)/mc L [facility] Red Blood Cell 3.78(L) 4.00 - 5.21 x10(6)/mc L [facility] Hemoglobin 13.0 11.7 - 15.5 g/dL [facility] Hematocrit 37.9 35.7 - 45.8 % [facility] Mean Cell Volume 100.3(H) 82.6 - 94.4 fL [facility] Mean Cell Hemoglobin 34.4(H) 27.1 - 32.0 pg [facility] Mean Cell Hemoglobin Concentration 34.3 31.7 - 35.0 g/dL [facility] Platelet 204 145 - 357 x10(3)/ L [facility] RDW Standard Deviation 54.3(H) 37.0 - 46.0 fL [facility] RDW coefficient of variation 14.6(H) 11.5 - 14.1 % [facility] Mean Platelet Volume 11.1 7.6 - 12.9 fL [facility] NRBC% auto 0.0 % [facility] NRBC Absolute 0.000 0.000 - 0.000 x10(3)/ L [facility] Blood 10/31/2023 1:37 AM EDT 10/31/2023 1:46 AM EDT Narrative Resulting Agency Comment Spec In Lab Qamar Gallardo MD HEMATOLOGY ORDERABLE S [facility] [place] [address] * Phosphorus (10/31/2023 1:37 AM EDT) Phosphorus 3.2 2.5 - 4.5 mg/dL [facility] Blood 10/31/2023 1:37 AM EDT 10/31/2023 1:46 AM EDT Narrative Resulting Agency Comment Spec In Lab Rosa Cornejo MD CHEMISTRY ORDERABLE S [facility] [place] [address] * Magnesium (10/31/2023 1:37 AM EDT) Pathologist [facility] Magnesium 0.83 0.69 - 1.07 mmol/L [facility] Blood 10/31/2023 1:37 AM EDT 10/31/2023 1:46 AM EDT Narrative Resulting Agency Comment Spec In Lab Rosa Cornejo MD CHEMISTRY ORDERABLE S Performing Organization Address [facility] Co de Phone Number [facility] [place] [address] * Basic Metabolic Panel (non-fasting) (10/31/2023 1:37 AM EDT) Pathologist [facility] Glucose 114 65 - 199 mg/dL [facility] Comment:Diabetes: >=200 mg/d L plus symptoms Blood Urea Nitrogen 13 8 - 18 mg/dL [facility] Creatinine 0.81 0.70 - 1.20 mg/dL [facility] Sodium 140 135 - 145 mmol/L [facility] Potassium 3.9 3.5 - 5.0 mmol/L [facility] Comment: Please note: ??Patients with WBC >100,000 may have falsely elevated Potassium levels. ??For accurate Potassium quantification in these patients send serum separator tube (gold top) for subsequent determinations. ??Contact the Clinical Chemistry Laboratory if there are any questions. Chloride 107 98 - 107 mmol/L [facility] Carbon Dioxide 25 22 - 31 mmol/L [facility] Anion Gap 8 5 - 15 mmol/L [facility] Calcium 8.6 8.5 - 10.5 mg/dL [facility] Est Glomerular Filtration Rate 72 >=60 mL/min/1. 73 m?? [facility] Comment: This patient's estimated GFR [...] Lab Rosa Cornejo MD CHEMISTRY ORDERABLE S [facility] [place] [address] * (ABNORMAL) Troponin (10/31/2023 1:37 AM EDT) Troponin-T, High Sensitivity 329(H) <=14 ng/L [facility] Comment: This patient's troponin T [...] troponin value can be found in the [facility] Test Catalog Troponin - [facility] Test Catalog Reference: Fourth [place] Definition of Myocardial Infarction. Journal of the [place] [employer] 2018;72:4349-0425 Blood 10/31/2023 1:37 AM EDT 10/31/2023 1:46 AM EDT Narrative Resulting Agency Comment Spec In Lab Rosa Cornejo MD CHEMISTRY ORDERABLE S Performing Organization Address [facility]/ZIP Co de Phone Number [facility] [place] [address] * EKG 12 Lead (10/31/2023 1:20 AM EDT) Ventricular rate 52 BPM MUSE SYSTEM Atrial Rate 52 BPM MUSE SYSTEM P-R Interval 224 ms MUSE SYSTEM QRS Duration 108 ms MUSE SYSTEM Q-T Interval 544 ms MUSE SYSTEM QTC Calculated (Bezet) 505 ms MUSE SYSTEM Calculated P Garland 90 degrees MUSE SYSTEM Calculated R Garland -57 degrees MUSE SYSTEM Calculated T Garland -63 degrees MUSE SYSTEM INTERPRETATION Sinus bradycardia with 1st degree A-V block Pulmonary disease pattern Left anterior fascicular block Moderate voltage criteria for LVH, may be normal variant ( R in aVL , [place] product ) T wave abnormality, consider inferior ischemia T wave abnormality, consider anterolateral ischemia Prolonged QT Abnormal ECG When compared with ECG of 30-OCT-2023 22:40, No significant change was found Confirmed by Charles COFFMAN, Butch ([id number]) on 11/01/2023 8:58:03 PM MUSE SYSTEM 10/31/2023 1:20 AM EDT 11/01/2023 8:58 PM EDT Rosa Cornejo MD ECG ORDERABLES Performing Organization Address City/[facility]/ZIP Co de Phone Number MUSE SYSTEM * EKG 12 Lead (10/30/2023 10:40 PM EDT) Ventricular rate 55 BPM MUSE SYSTEM Atrial Rate 55 BPM MUSE SYSTEM P-R Interval 232 ms MUSE SYSTEM QRS Duration 102 ms MUSE SYSTEM Q-T Interval 520 ms MUSE SYSTEM QTC Calculated (Bezet) 497 ms MUSE SYSTEM Calculated P Garland 75 degrees MUSE SYSTEM Calculated R Garland -53 degrees MUSE SYSTEM Calculated T Garland -57 degrees MUSE SYSTEM INTERPRETATION Sinus bradycardia [...] Chest One View (10/30/2023 10:10 PM EDT) [employer] WORKSTATION ID [id number] DH RAD Anatomical Region Laterality Modality Chest [...] and low lung volumes. Findings similar to aircraft pilot radiograph from CT 10/30/2023. Thank you for letting us participate in the care of this patient. ??If you are a health care provider and have any questions regarding this report, please contact the number below. ??For patients who have questions please contact the health rn progressive care unit that requested your imaging first. ? Narrative [...] and low lung volumes. Findings similar to aircraft pilot radiograph from CT 10/30/2023. Thank you for letting us participate in the care of this patient. If youare a health care provider and have any questions regarding this report,please contact the number below. For patients who have questions please contactthe health rn progressive care unit that requested your imaging first. Rosa Cornejo MD IMG DX ORDERABLES * Green Tube HOLD (10/30/2023 10:05 PM EDT) Pathologist [facility] Green Hold Sample in lab. [facility] Blood Venous Draw / Unknown 10/30/2023 10:05 PM EDT 10/30/2023 10:13 PM EDT Qamar Gallardo MD CHEMISTRY ORDERABLES [facility] [place] [address] * (ABNORMAL) Differential, Automated (10/30/2023 10:05 PM EDT) Pathologist [facility] Neutrophil % 76.6 % [facility] Neutrophil Absolute 6.94(H) 1.70 - 6.10 x10(3)/mc L [facility] Lymph % 15.4 % [facility] Lymphocytes Abs 1.4 0.9 - 3.2 x10(3)/mc L [facility] Monocyte % 6.1 % [facility] Monocyte Abs 0.6 0.3 - 0.9 x10(3)/mc L [facility] Eos % 1.1 % [facility] Eosinophils Abs 0.1 0.0 - 0.4 x10(3)/mc L [facility] Basophil % 0.6 % [facility] Baso Absolute 0.0 0.0 - 0.1 x10(3)/mc L [facility] Immature Gran % 0.20 % [facility] Comment: Immature granulocytes(IG's)percentage and absolute count will include metamyelocytes, myelocytes, and promyelocytes. Blood smears from CBCs yielding IG's will be scanned manually for concordance. If this scan disagrees with the automated IG or if promyelocytes are noted, a manual differential will be performed. Immature Gran Absolute 0.02 0.00 - 0.04 x10(3)/mc L [facility] Blood 10/30/2023 10:0 5 PM EDT 10/30/2023 10:12 PM EDT Narrative Resulting Agency Comment Spec In Lab Qamar Gallardo MD HEMATOLOGY ORDERABLE S [facility] [place] [address] * (ABNORMAL) Hemogram (10/30/2023 10:05 PM EDT) White Blood Cell 9.0 4.0 - 9.5 x10(3)/mc L [facility] Red Blood Cell 3.96(L) 4.00 - 5.21 x10(6)/mc L [facility] Hemoglobin 13.3 11.7 - 15.5 g/dL [facility] Hematocrit 39.1 35.7 - 45.8 % [facility] Mean Cell Volume 98.7(H) 82.6 - 94.4 fL [facility] Mean Cell Hemoglobin 33.6(H) 27.1 - 32.0 pg [facility] Mean Cell Hemoglobin Concentration 34.0 31.7 - 35.0 g/dL [facility] Platelet 211 145 - 357 x10(3)/mc L [facility] RDW Standard Deviation 53.6(H) 37.0 - 46.0 fL [facility] RDW coefficient of variation 14.6(H) 11.5 - 14.1 % [facility] Mean Platelet Volume 11.1 7.6 - 12.9 fL [facility] NRBC% auto 0.0 % [facility] NRBC Absolute 0.000 0.000 - 0.000 x10(3)/mc L [facility] Blood 10/30/2023 10:0 5 PM EDT 10/30/2023 10:12 PM EDT Narrative Resulting Agency Comment Spec In Lab Qamar Gallardo MD HEMATOLOGY ORDERABLE S Performing Organization Address [facility] Co de Phone Number [facility] [place] [address] * Hemoglobin A1c (10/30/2023 10:05 PM EDT) Hemoglobin A1c 5.5 4.3 - 5.6 % [facility] Comment: Reference Range: 4.3 - [...] S67-10 Estimated Average Glucose See note mg/dL [facility] Comment: Estimated Average Glucose not appropriate for patients over 70 years of age. Blood 10/30/2023 10:0 5 PM EDT 10/30/2023 10:12 PM EDT Narrative Resulting Agency Comment Spec In Lab Rosa Cornejo MD CHEMISTRY ORDERABLE S Performing Organization Address [facility] Co de Phone Number [facility] [place] [address] * Lipid Panel (Reflex Direct LDL) (10/30/2023 10:05 PM EDT) Cholesterol, Total 218 mg/dL [facility] Comment: Desirable: ? <200 mg/dL Borderline High: 200-239 mg/dL Higher: ?>ua=957 mg/dL Triglyceride 46 mg/dL [facility] Comment: Normal: ?<150 mg/dL Borderline High: 150-199 mg/dL High: ?200-499 mg/dL Very High: ? >kx=435 mg/dL HDL Cholesterol 64 mg/dL [facility] Comment: Females: High Risk: <50 mg/dL Males: High Risk: <40 mg/dL LDL Cholesterol 145 mg/dL [facility] Comment: Desirable: ? <100 mg/dL Above Desirable: 100-129 mg/dL Borderline High: 130-159 mg/dL High: ?160-189 mg/dL Very High: ? >tk=948 mg/dL Lipid Interpretation See Note [facility] Comment: It is important to [...] ACC/AHA Guidelines (most recently Feliciano et al. [employer] 03/23/22): For individuals with atherosclerotic cardiovascular disease (ASCVD)or LDL >id=340 mg/dL, use a high-intensity statin (40-80 mg [...] MD CHEMISTRY ORDERABLE S Performing Organization Address [facility] Co de Phone Number [facility] [place] [address] * TSH Brantley (10/30/2023 10:05 PM EDT) Thyroid Stimulating Hormone 3.35 0.27 - 4.20 mcIU/mL [facility] Comment: Reference Interval (mcIU/mL): Females: ??First Trimester: 0.23-3.88 ??Second Trimester: 0.22-3.90 ??Third Trimester: 0.44-4.66 Blood 10/30/2023 10:0 5 PM EDT 10/30/2023 10:12 PM EDT Narrative Resulting Agency Comment Spec In Lab Rosa Cornejo MD CHEMISTRY ORDERABLE S Performing Organization Address [facility] Co de Phone Number [facility] [place] [address] * pro-Brain Natriuretic Peptide (10/30/2023 10:05 PM EDT) NT-proBNP 375 <=449 pg/mL [facility] Blood 10/30/2023 10:0 5 PM EDT 10/30/2023 10:12 PM EDT Narrative Resulting Agency Comment Spec In Lab Rosa Cornejo MD CHEMISTRY ORDERABLE S [facility] [place] [address] * (ABNORMAL) Comprehensive metabolic panel (non-fasting) (10/30/2023 10:05 PM EDT) Glucose 121 65 - 199 mg/dL [facility] Comment:Diabetes: >=200 mg/d L plus symptoms Blood Urea Nitrogen 14 8 - 18 mg/dL [facility] Creatinine 0.85 0.70 - 1.20 mg/dL [facility] Sodium 142 135 - 145 mmol/L [facility] Potassium 3.9 3.5 - 5.0 mmol/L [facility] Comment: Please note: ??Patients with WBC >100,000 may have falsely elevated Potassium levels. ??For accurate Potassium quantification in these patients send serum separator tube (gold top) for subsequent determinations. ??Contact the Clinical Chemistry Laboratory if there are any questions. Chloride 105 98 - 107 mmol/L [facility] Carbon Dioxide 27 22 - 31 mmol/L [facility] Anion Gap 10 5 - 15 mmol/L [facility] Calcium 8.8 8.5 - 10.5 mg/dL [facility] Protein, Total 6.5 6.1 - 8.0 g/dL [facility] Albumin 4.2 3.2 - 5.2 g/dL [facility] Aspartate Aminotransferase 36(H) 0 - 30 unit/L [facility] Alanine Aminotransferase 17 0 - 30 unit/L [facility] Alkaline Phosphatase 54 35 - 105 unit/L [facility] Bilirubin, Total 0.5 0.2 - 1.3 mg/dL [facility] Est Glomerular Filtration Rate 68 >=60 mL/min/1. 73 m?? [facility] Comment: This patient's estimated GFR [...] MD CHEMISTRY ORDERABLE S Performing Organization Address City/[facility]/ZIP Co de Phone Number [facility] [place] [address] * Phosphorus (10/30/2023 10:05 PM EDT) Phosphorus 3.3 2.5 - 4.5 mg/dL [facility] Blood 10/30/2023 10:0 5 PM EDT 10/30/2023 10:12 PM EDT Narrative Resulting Agency Comment Spec In Lab Rosa Cornejo MD CHEMISTRY ORDERABLE S Performing Organization Address City/[facility]/ZIP Co de Phone Number [facility] [place] [address] * Magnesium (10/30/2023 10:05 PM EDT) Magnesium 0.86 0.69 - 1.07 mmol/L [facility] Blood 10/30/2023 10:0 5 PM EDT 10/30/2023 10:12 PM EDT Narrative Resulting Agency Comment Spec In Lab Rosa Cornejo MD CHEMISTRY ORDERABLE S Performing Organization Address City/[facility]/ZIP Co de Phone Number [facility] [place] [address] * (ABNORMAL) Troponin (10/30/2023 10:05 PM EDT) [facility] Troponin-T, High Sensitivity 214(H) <=14 ng/L [facility] Comment: This patient's troponin T [...] troponin value can be found in the [facility] Test Catalog Troponin - [facility] Test Catalog Reference: Fourth [place] Definition of Myocardial Infarction. Journal of the [place] [employer] 2018;72:5527-6065 Blood 10/30/2023 10:0 5 PM EDT 10/30/2023 10:12 PM EDT Narrative Resulting Agency Comment Spec In Lab Rosa Cornejo MD CHEMISTRY ORDERABLE S [facility] [place] [address] * EKG 12 Lead (10/30/2023 8:21 PM EDT) [facility] Ventricular rate 49 BPM MUSE SYSTEM Atrial Rate 49 BPM MUSE SYSTEM P-R Interval 230 ms MUSE SYSTEM QRS Duration 96 ms MUSE SYSTEM Q-T Interval 526 ms MUSE SYSTEM QTC Calculated (Bezet) 475 ms MUSE SYSTEM Calculated P Gar[place] 98 degrees MUSE SYSTEM Calculated R [place] -48 degrees MUSE SYSTEM Calculated T Gar[place] -51 degrees MUSE SYSTEM INTERPRETATION Sinus bradycardia with 1st degree A-V block Incomplete right bundle branch block Left anterior fascicular block Moderate voltage criteria for LVH, may be normal variant ( R in aVL , [place] product ) T wave abnormality, consider inferior [...] last 24 to 72 hours., Routine 1333 ([facility] Hold - Provider: Admin Adt - Reason: Transfer to a Procedural area)1548 ([facility] Unhold - Provider: Admin Adt) sodium chloride 0.9 % (flush) (BD PosiFlush Normal Saline 0.9) flush 5-20 mL 5-20 mL, Intravenous, EVERY 1 MIN PRN, Starting on 10/30/23 at 2208, Until Amna 11/03/23 at 1913, flush, Flush pertains to all indwelling lines. Flush per protocol found in the job aid using the link provided on this medication record., Routine 1333 ([facility] Hold - Provider: Admin Adt - Reason: Transfer to a Procedural area)1548 ([facility] Unhold - Provider: Admin Adt) documented in this encounter Additional Health Concerns Infection Onset Date Last Indicated Resolved Time Rule Out Respiratory 11/02/2023 11/02/2023 024 12:22 PM EDT Rule Out COVID-19 11/02/2023 11/02/2023 11/02/2023 12:22 PM EDT documented as of this encounter Care Teams Innovation Analyst Relationship Specialty Start Date End Date Rosie Mathews MD [address] [place] [address] PCP - General Family Medicine 11/25/17 11/23/23 documented as of this encounter
--- OUTSIDE RECORDS SUMMARY | 2024-02-13 10:14 | XMS_ITS | Encounter Summary ---
Author Organization [facility] [place] [address] Care Team Providers Care Manager Systems Name Role Phone Rosie Mathews MD Primary Care Provider [phone] Encounter Details Date Type Department Care Team (Late st Contact Info) Description 10/30/2023 5:00 PM EDT Ancillary [place] [phone] Izaiah Meyer MD [facility] [place] [address] Social History Tobacco Use Types Packs/Day Years Used Date Smoking Tobacco: Former Smokeless Tobacco: Never Alcohol Use Standard Drinks/Week Comments Not Currently 0 (1 standard drink = 0.6 oz pur e alcohol) [facility] Inpatient Questions Answer Date Recorded [...] AM EDT Office Visit Cardiology at [address] [place] [address] Izaiah Meyer MD [facility] [place] [address] documented as of this encounter Procedures Procedure Name Priority Date/Time Associated Diagnosis Comments FILM LIBRARY STORAGE ONLY CT CHEST Routine 10/30/2023 4:59 PM EDT documented in this encounter Results * Film Library- Storage Only CT Chest (10/30/2023 4:59 PM EDT) Narrative [facility] 10/30/2023 4:59 PM EDT This exam is auto-finalizing. It's purpose is for storage only. Izaiah Meyer MD IMG FILM LIBRARY ORD ERABLES Performing Organization Address City/State/[facility] Co de Phone Number [place], [place] documented in this encounter Visit Diagnoses Not on filedocumented in this encounter Care Teams Manager Systems Relationship Specialty Start Date End Date Rosie Mathews MD [address] [place] [address] PCP - General Family Medicine 11/25/17 11/23/23 documented as of this encounter
--- OUTSIDE RECORDS SUMMARY | 2024-02-13 10:14 | XMS_ITS | Encounter Summary ---
Author Organization [facility] [place] [address] Care Team Providers Care Credit Operations Specialist Name Role Phone Rosie Mathews MD Primary Care Provider [phone] Reason for Visit * Auth/Cert (Routine) Specialty Diagnoses / Procedures Referred By Contac t Referred To Contact Diagnoses Unstable angina Procedures [facility] [employer] [facility] Referral ID Status Reason Start Date Expiration Date Visits Re quested Visits Authorized [id number] 1 1 Encounter Details Date Type Department Care Team (Latest Contact Info) Description 10/30/2023 5:00 PM EDT - 10/30/2023 5:10 PM EDT Hospital Encounter [place] [phone] Rosa Menjivar MD [facility] [place] [address] Discharge Disposition: Home Social History Tobacco Use Types Packs/Day Years Used Date Smoking Tobacco: Former Smokeless Tobacco: Never Alcohol Use Standard Drinks/Week Comments Not Currently 0 (1 standard drink = 0.6 oz pur e alcohol) [facility] Inpatient Questions Answer Date Recorded Does [...] 11:20 AM EDT Office Visit Cardiology at [address] [place] [address] Izaiah Meyer MD [facility] [place] [address] documented as of this encounter Visit Diagnoses Not on filedocumented in this encounter Care Teams Credit Operations Specialist Relationship Specialty Start Date End Date Rosie Mathews MD [address] [place] [address] PCP - General Family Medicine 11/25/17 11/23/23 documented as of this encounter
--- OUTSIDE RECORDS SUMMARY | 2024-02-13 10:14 | XMS_ITS | Encounter Summary ---
Author Organization [facility] [place] [address] Care Team Providers Care Engraver Ornamental Design Name Role Phone Rosie Mathews MD Primary Care Provider [phone] Reason for Visit * Auth/Cert (Routine) Specialty Diagnoses / Procedures Referred By Contbruce t Referred To Contact Diagnoses Unstable angina Chest pain NSTEMI Procedures CARDIAC CATHETERIZATION Rosa Dewey MD [facility] [place] [address] [facility] Referral ID Status Reason Start Date Expiration Date Visits Re quested Visits Authorized [id number] 1 1 Encounter Details Date Type Department Care Team (Late st Contact Info) Description 11/01/2023 3:33 PM EDT - 11/01/2023 5:03 PM EDT [place] [address] Rosa Dewey MD [facility] [address] [place], [place] [id number] CARDIAC CATHETERIZATION Social History Tobacco Use Types [...] for hypertension and hyperlipidemia who presented to [facility] as a transfer from [facility] as a possible STEMI alert with acute onset chest pain. The patient reports that her symptoms initially began on Tuesday when she was walking to [facility] and experienced bilateral arm heaviness while walking with no other symptoms. Then, this afternoon shereports developing bilateral achy shoulder pain and nonradiating substernal left-sided chest pressure that was 7/10 in severity after coming home from [place]. The patient denies any associated fevers, chills, diaphoresis, lightheadedness/dizziness, syncope/presyncope, dyspnea (either at rest or on exertion), palpitations, orthopnea, or PND. The patient subsequently presented to [facility] as a walk-in for further [...] on repeat, her TRU resolved. Cardiology at [facility] was consulted for transfer; the patient was loaded with aspirin 324 mg and ticagrelor 180 mg, started on a heparin drip, and given nitroglycerin with improvement in chest pain. Upon arrival to [facility], the patient was taken directly to the Photographic Restorer. Two lesions were discovered: one in the prox RCA (felt to almost be a PROFESSOR OF ENGINEERING but they were able to wire, balloon, [...] dose administered prior to arrival in the optical laboratory technician. Recommended anti-platelet/anti-thrombotic regimen: Continue aspirin 81 [...] and low lung volumes. Findings similar to coining press operator radiograph from CT 10/30/2023. Pending Studies [...] 10:40 AM Izaiah Meyer MD Cardiology at [place] Arrive at: [facility] [address] [phone] Future Orders Complete By Expires Referral to Cardiac Rehab [[id number] Custom] As directed Process Instructions: If no progress note charted, please enter Clinical details in comments. Scheduling Instructions: Questions: My question or request is: STEMI. Cardiac rehab at [facility]. Referral to Home Health [[id number] Custom] As directed Process Instructions: If no progress note charted, please enter Clinical details in comments. Scheduling Instructions: Comments: Please evaluate Adin Santos for admission to Home Health. [address] [facility] [address] (home) Date of : 1940 Inpatient DOCUMENTATION FOR VNA SERVICES (INCLUDING THOSE PATIENTS WITH MEDICARE COVERAGE REQUIRING HOME VNA SERVICES AND/OR HOSPICE SERVICES) PATIENT'S LOCATION: Adin Santos [address] [facility] [address] (home) Cell: Telephone Information: Oil And Gas Principal's Name: self In discussion with the attending physician, it is certified that this patient is under their care and that they, or a Nurse Practitioner, Clinical Nurse specialist or Physician U.S. Revenue Officer who is working directly with them, had [...] regarding health issues HOME HEALTH CARE AGENCY: [facility] [address] [address] START OF CARE: within 24-48 hours of [...] Rosie Mathews MD [address] / [facility] [address] . All A agencies which [...] MD / Dr. Masood Pierson [address] [place] [address] 11/09/23 1:55 PM arrival for 2:10 PM appointment Pyrometer Mechanic: Izaiah Meyer MD [address] [place] [id number] , 11/24/2023 10:40 AM Your Inpatient Medical Team at [facility] Name(s) of your inpatient provider(s): Attending physician: Rosa Hugo MD Resident physicians: Emile Robles MD; Elmer Tamez MD If you have non-emergent questions, prior to your follow-up visit call: Tuesday-Tuesday between the hours of 8AM-5PM please call the Cardiology Clinic [phone] to speak with a nurse. All other hours please call the Hospital Preschool Lead Teacher [phone] and ask to speak to the hvac sales engineer on-call. Your Primary Care Provider Rosie Mathews MD [phone] For questions regarding this document or issues relating to this hospitalization on the Medical Service, please contact your inpatient physician through the [facility] Preschool Lead Teacher . Issues afterhours and on weekends will be handled by the Pyrometer Mechanic staff on-call. Associated attestation - Rosa Hugo [...] Mathews MD / Dr. Masood Pierson [address] [place] [address] 11/09/23 1:55 PM arrival for 2:10 PM appointment Pyrometer Mechanic: Izaiah Meyer MD [address] [place] [address] , 11/24/2023 10:40 AM Your Inpatient Medical Team at [facility] Name(s) of your inpatient provider(s): Attending physician: Rosa Hugo MD Resident physicians: Emile Robles MD; Elmer Tamez MD If you have non-emergent questions, prior to your follow-up visit call: Tuesday-Tuesday between the hours of 8AM-5PM please call the Cardiology Clinic [phone] to speak with a nurse. All other hours please call the Hospital Preschool Lead Teacher [phone] and ask to speak to the hvac sales engineer on-call. Your Primary Care Provider Rosie Mathews MD [phone] documented in this encounter Medications at Time [...] for hypertension and hyperlipidemia who presented to [facility] as a transfer from [facility] as a possible STEMI alert [...] for hypertension and hyperlipidemia who presented to [facility] as a transfer from [facility] as a possible STEMI alert [...] Resident on Cardiology Service Cardiology S1 (Pager [phone]) Note written in conjunction with Claudio Perla [facility] Medical Student, MS3 Associated attestation - [...] Nirmala Webb - 11/01/2023 11:25 AM EDT Workers Compensation Administrator Encounter Note Patient Name: Adin Santos : [id number] MR#: [id number] Admit Date: 10/30/2023 5:11 PM Hospital Day 2 days Narrative: Self initiated visit to patient for Spiritual support in a regular unit rounds. Assessment: Patient is in the bathroom at the time of this visit. Not a good time for Clinical Resource Director visit. Intervention and Outcome: An attempted [...] for hypertension and hyperlipidemia who presented to [facility] as a transfer from [facility] as a possible STEMI alert [...] and low lung volumes. Findings similar to coining press operator radiograph from CT 10/30/2023. Scheduled Medications: [...] for hypertension and hyperlipidemia who presented to [facility] as a transfer from [facility] as a possible STEMI alert [...] Resident on Cardiology Service Cardiology S1 (Pager [phone]) Note written in conjunction with Claudio Perla [facility] Medical Student, MS3 Associated attestation - [...] for hypertension and hyperlipidemia who presented to [facility] as a transfer from [facility] as a possible STEMI alert with acute onset chest pain. Active Problems: Active Hospital Problems Diagnosis Unstable angina Resolved Hospital Problems No resolved problems to display. 24 hr events: - Cath'd yesterday with lesion in the proximal RCA (initially thought it was PROFESSOR OF ENGINEERING but they were ableto wire, balloon and [...] and low lung volumes. Findings similar to coining press operator radiograph from CT 10/30/2023. TTE (10/30): Interpretation [...] for hypertension and hyperlipidemia who presented to [facility] as a transfer from [facility] as a possible STEMI alert [...] Resident on Cardiology Service Cardiology S1 (Pager [phone]) Note written in conjunction with Claudio Perla [facility] Medical Student, MS3 Associated attestation - [...] PCP: Rosie Mathews MD PCP phone number: [phone] Date of Admission: 10/30/2023 ( Hospital Day 0 days ) Attending:Rosa Cornejo MD ID: Adin Santos is a 83 y.o. female PMH significant for hypertension and hyperlipidemia who presented to [facility] as a transfer from [facility] as a possible STEMI alert with acute onset chest pain. The patient reports that her symptoms initially began on Tuesday when she was walking to [facility] and experienced bilateral arm heaviness while walking with no other symptoms. Then, this afternoon shereports developing bilateral achy shoulder pain and nonradiating substernal left-sided chest pressure that was 7/10 in severity after coming home from [place]. The patient denies any associated fevers, chills, diaphoresis, lightheadedness/dizziness, syncope/presyncope, dyspnea (either at rest or on exertion), palpitations, orthopnea, or PND. The patient subsequently presented to [facility] as a walk-in for further [...] on repeat, her TRU resolved. Cardiology at [facility] was consulted for transfer; the patient was loaded with aspirin 324 mg and ticagrelor 180 mg, started on a heparin drip, and given nitroglycerin with improvement in chest pain. Upon arrival to [facility], the patient was taken directly to the Photographic Restorer. Two lesions were discovered: one in the prox RCA (felt to almost be a PROFESSOR OF ENGINEERING but they were able to wire, balloon, [...] and low lung volumes. Findings similar to coining press operator radiograph from CT 10/30/2023. Assessment & Plan: Adin Santos is a 83 y.o. female PMH significant for hypertension and hyperlipidemia who presented to [facility] as a transfer from [facility] as a possible STEMI alert [...] with HTN HLD transferred with chest from [facility]. BP 217/68, HR [address] [...] information for follow-up Home Health & Hospice, [place] [address] TANESHA BOYCE confirmed with [facility] that they will see the patient within 24-48 hours of discharge for start of care. Transportation: family or friend will provide Wheelchair van/Ambulance? No Functional status prior to admission: Assistive Equipment Home Environment: Others in the home: alone. Current Living Arrangements: home/apartment/condo. Accessibility Concerns:1st floor apartment in nursing home community; handicapped accessible. Current Functional Ability: Assistive Equipment DME used at home: cane - straight, grab bar - tub/shower, grab bar - toilet, raised toilet seat DME Needed at Discharge: N/A Patient is insured through: Primary Insurance: [employer] MANAGED MEDICARE Payor: [employer] MANAGED MEDICARE / Plan: [employer] MANAGED MEDICARE PPO / Product Type: *No [...] in the room. Electrolytes replaced, see MAR. pathology lab technician sites remained C/D/I with baseline ecchymosis unchanged. Pt complained of back pain, lidocaine patch given. Right IV infiltrated during infusion, patient is marked with sharpie, IV removed. See flowsheet for I+O's and safety rounding. Patient is able to make needs known and call capps within reach. PLAN MOVING FORWARD: Monitor Tele, control BP, monitor optical laboratory technician sites, D/C Planning INDIVIDUALIZED FALL PREVENTION [...] in an outpatient cardiac rehabilitation program at [facility] was discussed. Patient agrees to a referral [...] and above on RA. PT went to optical laboratory technician today. Left fem site oozed throughout [...] MOVING FORWARD: Monitor Tele, control BP, monitor optical laboratory technician sites, D/C Planning INDIVIDUALIZED FALL PREVENTION [...] Admitted From: Transfer from another hospital Location: [facility] Reason for Hospitalization: chest pain Covid Vaccination Status: 1st, 2nd & booster Past medical History: No past medical history on file. Hospitalizations Within the Past 30 Days: no previous admission in last 30 days Current Decision-Making Capacity: Self If AD's have not been completed the following surrogate would be surrogate decision maker per [place] surrogate decision making law. (Only good for 180 days) Any patient receiving care in [place] must abide by [place] law. The hierarchy for surrogate decision making [...] (i) The agent with financial power of communications tech or a conservator appointed in accordance with [...] Arrangements: home/apartment/condo. Accessibility Concerns:1st floor apartment in nursing home community; handicapped accessible. In the last 12 [...] has the electric, gas, oil, or water WiTricity threatened to shut off services in your [...] toilet seat Home Address confirmed as: [address] [facility] [address] Social & Family Supports: All names listed below confirmed with patient as current and correct Extended Emergency Contact Information Primary Emergency Contact: Iris Downing Address: [address] [place], [place] [address] [address] Mobile Relation: Child Secondary Emergency Contact: Karen More Address: [address] [facility] Mobile Relation: Child Current Care Provided by: self Provides Primary Care For: no one Caregiver if needed: child(emmanuel), adult Quality of Family relationships: involved, supportive Community Resources being provided currently: other (see comments) (receives [facility] services at home (1xweekly)) [...] Specific Information: N/A Health/Prescription Coverage: Primary Insurance: [employer] MANAGED MEDICARE Payor: [employer] MANAGED MEDICARE / Plan: [employer] MANAGED MEDICARE PPO / Product Type: *No Product type* / Secondary Insurance: N/A Prescription Coverage: Yes Preferred Pharmacy: [id number] - [place], [place] - [address] [place] [id number] [place] Status: Patient is a : No Primary Care Provider listed: Masood Pierson MD [phone] Patient/Caregiver Goals of Treatment: home when MR Potential Needs for Transition of Care: home health care Agency Referrals: Not Applicable I have met with the patient to: discuss discharge planning needs. provide the [facility], Office of Care Management letter from the [employer] Silverer pertaining to rehab referrals. provide a letter describing our affiliations within the [facility] and educate about their right to choose where referrals are sent. provide a list of Home Health Agencies / Durable Medical Equipment vendors which serve their preferred geographic area. provided patient with [facility] Star Quality Rating handout. They have requested referrals to: [facility] [address] [place] [address] Note routed to a Clinic Administrator who will communicate referrals to facilities and [...] results. PO hydralazine added for BP control. pathology lab technician sites remain C/D/I, ecchymosis unchanged th roughout shift. See flowsheet for I+O's and safety rounding. Patient is able to make needs known and call capps within reach. PLAN MOVING FORWARD: Monitor Tele, control CP and BP, NPO at MD for cath, monitor optical laboratory technician sites, D/C Planning INDIVIDUALIZED FALL PREVENTION [...] 11:20 AM EDT Office Visit Cardiology at [address] [place] [address] Izaiah Meyer MD [facility] [place] [address] Scheduled Referrals Name Type Priority Associated Diagnoses [...] [facility] Lymph % 15.2 % [facility] Lymphocytes Abs 1.3 0.9 - 3.2 x10(3)/mc L [facility] Monocyte % 16.9 % [facility] Monocyte Abs 1.4(H) 0.3 - 0.9 x10(3)/mc L [facility] Eos % 3.7 % [facility] Eosinophils Abs 0.3 0.0 - 0.4 x10(3)/ L [facility] Basophil % 0.5 % [facility] Baso Absolute 0.0 0.0 - [...] MD HEMATOLOGY ORDERABLE S [facility] [place] [address] * (ABNORMAL) Hemogram (11/03/2023 3:46 AM EDT) [...] [facility] NRBC% auto 0.0 % [facility] NRBC Absolute 0.000 0.000 - 0.000 x10(3)/mc L [facility] Blood 11/03/2023 3:46 AM EDT 11/03/2023 4:11 AM EDT Narrative Resulting Agency Comment Spec In Lab Qamar Gallardo MD HEMATOLOGY ORDERABLE S Performing Organization Address City/[facility]/ZIP Co de Phone Number [facility] [place] [address] * Phosphorus (11/03/2023 3:46 AM EDT) Pathologist [facility] Phosphorus 3.2 2.5 - 4.5 mg/dL [facility] Comment:result rechecked-KS Blood 11/03/2023 3:46 AM EDT 11/03/2023 4:11 AM EDT Narrative Resulting Agency Comment Spec In Lab Rosa Cornejo MD CHEMISTRY ORDERABLE S Performing Organization Address [facility] Co de Phone Number [facility] [place] [address] * Magnesium (11/03/2023 3:46 AM EDT) [facility] Magnesium 0.90 0.69 - 1.07 mmol/L [facility] Blood 11/03/2023 3:46 AM EDT 11/03/2023 4:11 AM EDT Narrative Resulting Agency Comment Spec In Lab Rosa Cornejo MD CHEMISTRY ORDERABLE S Performing Organization Address [facility] Co de Phone Number [facility] [place] [address] * (ABNORMAL) Basic Metabolic Panel (non-fasting) (11/03/2023 3:46 AM EDT) Pathologist [facility] Glucose 105 65 - 199 mg/dL [facility] [...] MD CHEMISTRY ORDERABLE S [facility] [place] [address] * EKG 12 Lead (11/02/2023 12:44 PM EDT) Ventricular rate 83 BPM MUSE SYSTEM Atrial Rate 83 BPM MUSE SYSTEM P-R Interval 216 ms MUSE SYSTEM QRS Duration 90 ms MUSE SYSTEM Q-T Interval 384 ms MUSE SYSTEM QTC Calculated (Bezet) 451 ms MUSE SYSTEM Calculated P [place] 92 degrees MUSE SYSTEM Calculated R [place] -51 degrees MUSE SYSTEM Calculated T [place] -33 degrees MUSE SYSTEM INTERPRETATION Sinus rhythm with 1st degree A-V block with Premature atrial complexes Left axis deviation Moderate voltage criteria for LVH, may be normal variant ( R in aVL , Ifeanyi product ) Anterolatera l infarct (cited on or before 01-NOV-2023) Abnormal ECG When compared with ECG of 01-NOV-2023 22:10, Premature atrial complexes are now Present LA interval has increased Vent. rate has decreased BY ??56 BPM Confirmed by MD Kevin, Esteban ([id number]) on 11/02/2023 1:32:10 PM MUSE SYSTEM 11/02/2023 12:4 4 PM EDT 11/02/2023 1:32 PM EDT Rosa Hugo MD ECG ORDERABLES MUSE SYSTEM * (ABNORMAL) Urinalysis Microscopic Exam (11/02/2023 11:40 AM EDT) RBC, Urine <1 0 - 4 /HPF [facility] Comment: Interpret results with caution, microscopic results are from suboptimal specimen volume WBC, Urine 16(H) 0 - 5 /HPF [facility] Comment: Interpret results [...] Tamez MD URINE ORDERABLES [facility] [place] [address] * (ABNORMAL) Urinalysis with reflex Culture (11/02/2023 [...] HOSPITAL LABORATORY Leukocytes, Urine Dipstick Small(A) Negative [facility] Appearance, Urine Dipstick Cloudy(A) Clear [facility] Specific [place] Urine Automated >=1.030(A) 1.005 - 1.030 [facility] Color, Urine Dipstick Dark Yellow Yellow [facility] Reflex to Culture Yes [facility] Clean Catch Urine 11/02/2023 11:40 AM EDT 11/02/2023 12:04 PM EDT Narrative Resulting Agency Comment Spec In Lab Rosa Hugo MD URINE ORDERABLES [facility] [place] [address] * Respiratory Panel PCR (11/02/2023 10:15 AM EDT) Respiratory Panel Source [employer] Swab [facility] Respiratory Panel PCR Negative Negative [facility] Comment: Respiratory Panels are performed on the [employer], using multiplexed PCR nucleic acid detection. ??Negative [...] performed using the [employer] Respiratory Panel 2.1 (openPeople) as authorized by the FDA issued Emergency Use Authorization (EUA). This panel also tests for multiple other viral and bacterial pathogens. This assay is intended for In-vitro Diagnostic (IVD) use with nasopharyngeal swabs in viral transport media. The assay is performed based on the instructions for use and additional guidance provided by the FDA. Testing is performed in laboratories within the [facility], each of which is certified under the [...] fact sheets at the following FDA website: https://www.fda.gov/medical-devices/nblkycceaza-hleaunl-4482-swaug-74-yfnkxqgxt- use-a xvqpcceebzbhy-ocbdqhu-bllidem/uvunk-oulxxpsmjfx-scyc Human Metapneumovirus Not Detected Not Detected [facility] [...] - GEN ERAL ORDERABLES [facility] [place] [address] * XR Chest One View (11/02/2023 2:51 AM EDT) WORKSTATION ID [id number] RAD Anatomical Region Laterality Modality Chest N/A [...] who have questions please contact the health family day care worker that requested your imaging first. ? Narrative [...] patients who have questions please contactthe health family day care worker that requested your imaging first. Rosa Hugo MD IMG DX ORDERABLES * (ABNORMAL) Differential, Automated (11/02/2023 12:35 AM EDT) Neutrophil % 76.5 % [facility] Neutrophil Absolute 7.69(H) 1.70 - 6.10 x10(3)/mc L [facility] Lymph % 8.3 % [facility] Lymphocytes Abs 0.8(L) 0.9 - 3.2 x10(3)/mc L [facility] Monocyte % 12.9 % [facility] Monocyte Abs 1.3(H) 0.3 - 0.9 x10(3)/mc L [facility] Eos % 1.4 % [facility] Eosinophils Abs 0.1 0.0 - 0.4 x10(3)/mc L [facility] Basophil % 0.4 % [facility] Baso Absolute 0.0 0.0 - [...] MD HEMATOLOGY ORDERABLE S [facility] [place] [address] * (ABNORMAL) Hemogram (11/02/2023 12:35 AM EDT) White Blood Cell 10.0(H) 4.0 - 9.5 x10(3)/ L [facility] NRBC% auto 0.0 % [facility] NRBC Absolute 0.000 0.000 - 0.000 x10(3)/mc L [facility] Blood 11/02/2023 12:3 5 AM EDT 11/02/2023 12:43 AM EDT Narrative Resulting Agency Comment Spec In Lab Qamar Gallardo MD HEMATOLOGY ORDERABLE S [facility] [place] [address] * (ABNORMAL) Phosphorus (11/02/2023 12:35 AM EDT) Phosphorus 1.6(L) 2.5 - 4.5 mg/dL [facility] Blood 11/02/2023 12:3 5 AM EDT 11/02/2023 12:43 AM EDT Narrative Resulting Agency Comment Spec In Lab Rosa Cornejo MD CHEMISTRY ORDERABLE S Performing Organization Address City/[facility]/ZIP Co de Phone Number [facility] [place] [address] * Magnesium (11/02/2023 12:35 AM EDT) Magnesium 0.87 0.69 - 1.07 mmol/L [facility] Blood 11/02/2023 12:3 5 AM EDT 11/02/2023 12:43 AM EDT Narrative Resulting Agency Comment Spec In Lab Rosa Cornejo MD CHEMISTRY ORDERABLE S Performing Organization Address City/[facility]/ZIP Co de Phone Number [facility] [place] [address] * Basic Metabolic Panel (non-fasting) (11/02/2023 12:35 [...] MD CHEMISTRY ORDERABLE S [facility] [place] [address] * Blood culture (11/02/2023 12:35 AM EDT) Blood Culture No growth at 5 days. [facility] Blood 11/02/2023 12:3 5 AM EDT 11/02/2023 1:55 AM EDT Comment:#2 site ukn Narrative Resulting Agency Comment Spec In Lab Rosa Hugo MD MICROBIOLOGY - BLO OD ORDERABLES Performing Organization Address City/[facility]/ZIP Co de Phone Number [facility] [place] [address] * Blood culture (11/02/2023 12:15 AM EDT) Blood Culture No growth at 5 days. [facility] Blood 11/02/2023 12:1 5 AM EDT 11/02/2023 1:54 AM EDT Comment:#1site unk Narrative Resulting Agency Comment Spec In Lab Rosa Hugo MD MICROBIOLOGY - BLO OD ORDERABLES Performing Organization Address [facility] Co de Phone Number [facility] [place] [address] * EKG 12 Lead (11/01/2023 10:10 PM EDT) Ventricular rate 139 BPM MUSE SYSTEM Atrial Rate 139 BPM MUSE SYSTEM P-R Interval 168 ms MUSE SYSTEM QRS Duration 84 ms MUSE SYSTEM Q-T Interval 286 ms MUSE SYSTEM QTC Calculated (Bezet) 435 ms MUSE SYSTEM Calculated R [place] -59 degrees MUSE SYSTEM Calculated T [place] -27 degrees MUSE SYSTEM INTERPRETATION Mid-RP tachycardia, [...] interpretation Confirmed by fellow MD Bowen Ashley ([id number]) on 11/04/2023 7:57:50 AM Confirmed by MD Carrillo Danette ([id number]) on 11/04/2023 4:32:03 PM MUSE SYSTEM 11/01/2023 10:1 0 PM EDT 11/04/2023 4:32 PM EDT Rosa Cornejo MD ECG ORDERABLES MUSE SYSTEM * (ABNORMAL) Hemogram (11/01/2023 10:06 PM EDT) White Blood Cell 10.4(H) 4.0 - 9.5 x10(3)/mc L [facility] Red Blood Cell 4.11 4.00 - 5.21 x10(6)/mc L [facility] Hemoglobin 14.0 11.7 - 15.5 g/dL [facility] Hematocrit 41.1 35.7 - 45.8 % [facility] Mean Cell Volume 100.0(H) 82.6 - 94.4 fL [facility] Mean Cell Hemoglobin 34.1(H) 27.1 - 32.0 pg [facility] Mean Cell Hemoglobin Concentration 34.1 31.7 - 35.0 g/dL [facility] Platelet 197 145 - 357 x10(3)/mc L [facility] RDW Standard Deviation 54.0(H) 37.0 - 46.0 [facility] LABORATORY RDW coefficient of variation 14.6(H) 11.5 - 14.1 % [facility] Mean Platelet Volume 11.2 7.6 - 12.9 [facility] LABORATORY NRBC% auto 0.0 % [facility] NRBC Absolute 0.000 0.000 - 0.000 x10(3)/mc L [facility] Blood 11/01/2023 10:0 6 PM EDT 11/01/2023 10:22 PM EDT Narrative Resulting Agency Comment Spec In Lab Rosa Hugo MD HEMATOLOGY ORDERAB LES [facility] [place] [id number] * POCT Glucose (11/01/2023 5:59 PM EDT) Glucose, POC 104 65 - 199 mg/dL [facility] Comment: Supplemental ranges: <140 mg/dL before meals <180 mg/dL all other times of the day Blood 11/01/2023 5:59 PM EDT 11/01/2023 5:59 PM EDT Rosa Hugo MD POINT OF CARE TEST ORDERABLES [facility] [place] [address] * POCT Glucose (11/01/2023 5:35 PM EDT) Glucose, POC 85 65 - 199 mg/dL [facility] Comment: Supplemental ranges: <140 mg/dL before meals <180 mg/dL all other times of the day Blood 11/01/2023 5:35 PM EDT 11/01/2023 5:35 PM EDT Rosa Hugo MD POINT OF CARE TEST ORDERABLES [facility] [place] [address] * EKG 12 Lead (11/01/2023 3:22 PM EDT) Ventricular rate 59 BPM MUSE SYSTEM Atrial Rate 59 BPM MUSE SYSTEM P-R Interval 220 ms MUSE SYSTEM QRS Duration 94 ms MUSE SYSTEM Q-T Interval 428 ms MUSE SYSTEM QTC Calculated (Bezet) 423 ms MUSE SYSTEM Calculated P [place] 76 degrees MUSE SYSTEM Calculated R [place] -50 degrees MUSE SYSTEM Calculated T [place] -59 degrees MUSE SYSTEM INTERPRETATION Sinus bradycardia [...] Modality Other Narrative 11/02/2023 4:57 PM EDT ?[facility] ? Cardiac Catheterization/Intervention Report ? Patient Name: Adin Santos. ? Procedure Date: 11/01/2023 ? A #: [id number] ? Primary Physician: Rosa Dewey I ? Case #: [id number] ? File Name: [id number] ? Catheterization Order Number: [id number] ? [facility] ? Final Report [place], [place] ? Patient Name: ? Adin M. Goguen ?ID#: ?[id number] ? : ?1940 ? Procedure Date: ? [...] was designated as ASA Class III. The [facility] clinical ?frailty scale is 4: Vulnerable. [...] procedure was Urgent. The indication for ?the optical laboratory technician visit is ACS greater than 24 [...] ??A premounted ? 3.50 x 15 mm [place] Henniker (RADHA) was deployed with a maximum ? [...] ? A premounted 3.50 x 15 mm [place] Henniker (RADHA) was deployed ? with a maximum [...] dose administered prior to arrival in the optical laboratory technician. ?Recommended anti-platelet/anti-thrombotic regimen: ?Continue aspirin 81 mg daily for indefinitely. ?Continue clopidogrel 75 mg daily for 12 months then stop. ?These recommendations are made at the time of the intervention. Patient ?and provider preferences or a changing clinical situation may require ?modification of this regimen. Consult [facility] Interventional Cardiology for ?questions. ?The [...] Procedure Note Rosa Dewey MD - 12/12/2023 [facility] Cardiac Catheterization/Intervention Report Patient Name: Adin Santos Procedure Date: 11/01/2023 A #: [id number] Primary Physician: Rosa Dewey I Case #: [id number] File Name: [id number] Catheterization Order Number: [id number] [facility] FinalReport [place], [place] Patient Name: Adin Santos ID#:[id number] :1940 Procedure Date: November 01, 2023 Case [...] diagnostic procedure was Urgent. The indicationfor the optical laboratory technician visit is ACS greater than 24 [...] atmospheres. Apremounted 3.50 x 15 mm Andrea Henniker (RADHA) was deployed with amaximum inflation pressure [...] The lesion was predilated with a 3.00mm [id number] MM balloon with a maximum inflation pressure of 14atmospheres. A premounted 3.50 x 15 mm [place] Henniker (RADHA) wasdeployed with a maximum inflation pressure [...] dose administered prior to arrival in the optical laboratory technician. Recommended anti-platelet/anti-thrombotic regimen: Continue aspirin 81 mg daily for indefinitely. Continue clopidogrel 75 mg daily for 12 months then stop. These recommendations are made at the time of the intervention.Patient and provider preferences or a changing clinical situation mayrequire modification of this regimen. Consult [facility] Interventional Cardiologyfor questions. The 1 [...] CARE TEST O RDERABLES [facility] [place] [address] * (ABNORMAL) Differential, Automated (11/01/2023 3:09 AM EDT) Neutrophil % 63.9 % [facility] Neutrophil Absolute 5.54 1.70 - 6.10 x10(3)/mc L [facility] Lymph % 20.0 % [facility] Lymphocytes Abs 1.7 0.9 - 3.2 x10(3)/mc L [facility] Monocyte % 11.9 % [facility] Monocyte Abs 1.0(H) 0.3 - 0.9 x10(3)/ L [facility] Eos % 3.2 % [facility] Eosinophils Abs 0.3 0.0 - 0.4 x10(3)/ L [facility] Basophil % 0.5 % [facility] Baso Absolute 0.0 0.0 - [...] Immature Gran Absolute 0.04 0.00 - 0.04 x10(3)/[facility] LABORATORY Blood 11/01/2023 3:09 AM EDT 11/01/2023 3:29 AM EDT Narrative Resulting Agency Comment Spec In Lab Qamar Gallardo MD HEMATOLOGY ORDERABLE S [facility] [place] [address] * (ABNORMAL) Hemogram (11/01/2023 3:09 AM EDT) White Blood Cell 8.7 4.0 - 9.5 x10(3)/ L [facility] Red Blood Cell 3.72(L) 4.00 - 5.21 x10(6)/[facility] LABORATORY Hemoglobin 12.5 11.7 - 15.5 g/dL [...] [facility] NRBC% auto 0.0 % [facility] NRBC Absolute 0.000 0.000 - 0.000 x10(3)/mc L [facility] Blood 11/01/2023 3:09 AM EDT 11/01/2023 3:29 AM EDT Narrative Resulting Agency Comment Spec In Lab Qamar Gallardo MD HEMATOLOGY ORDERABLE S [facility] [place] [address] * Phosphorus (11/01/2023 3:09 AM EDT) Phosphorus 2.5 2.5 - 4.5 mg/dL [facility] Blood 11/01/2023 3:09 AM EDT 11/01/2023 3:29 AM EDT Narrative Resulting Agency Comment Spec In Lab Rosa Cornejo MD CHEMISTRY ORDERABLE S [facility] [place] [address] * Magnesium (11/01/2023 3:09 AM EDT) Magnesium 0.82 0.69 - 1.07 mmol/L [facility] Blood 11/01/2023 3:09 AM EDT 11/01/2023 3:29 AM EDT Narrative Resulting Agency Comment Spec In Lab Rosa Cornejo MD CHEMISTRY ORDERABLE S [facility] [place] [address] * (ABNORMAL) Basic Metabolic Panel (non-fasting) (11/01/2023 [...] MD CHEMISTRY ORDERABLE S Performing Organization Address City/[facility]/ZIP Co de Phone Number [facility] [place] [address] * (ABNORMAL) Troponin (10/31/2023 2:46 PM EDT) [...] troponin value can be found in the [facility] Laboratory Test Catalog Troponin - [facility] Test Catalog Reference: Fourth [place] Definition of Myocardial Infarction. Journal of the [place] [employer] 2018;72:5212-3359 Blood 10/31/2023 2:46 PM EDT 10/31/2023 2:55 PM EDT Narrative Resulting Agency Comment Spec In Lab Jean Laboy MD CHEMISTRY ORDERABLES Performing Organization Address City/[facility]/ZIP Co de Phone Number [facility] [place] [address] * EKG 12 Lead (10/31/2023 1:07 PM EDT) Ventricular rate 54 BPM MUSE SYSTEM Atrial Rate 54 BPM MUSE SYSTEM P-R Interval 218 ms MUSE SYSTEM QRS Duration 92 ms MUSE SYSTEM Q-T Interval 540 ms MUSE SYSTEM QTC Calculated (Bezet) 512 ms MUSE SYSTEM Calculated P [place] 85 degrees MUSE SYSTEM Calculated R [place] -44 degrees MUSE SYSTEM Calculated T [place] -69 degrees MUSE SYSTEM INTERPRETATION Sinus bradycardia [...] [place] Troponin-T, High Sensitivity 580(H) <=14 ng/L [facility] [...] troponin value can be found in the [facility] Laboratory Test Catalog Troponin - [facility] Test Catalog Reference: Fourth [place] Definition of Myocardial Infarction. Journal of the [place] [employer] 2018;72:1845-5412 Blood 10/31/2023 11:3 7 AM EDT 10/31/2023 11:50 AM EDT Narrative Resulting Agency Comment Spec In Lab Rosa Cornejo MD CHEMISTRY ORDERABLE S [facility] [place] [address] * ECHO COMPLETE (10/31/2023 8:52 AM EDT) Anatomical Region Laterality Modality Cardiac Other 10/31/2023 7:57 AM EDT Narrative 10/31/2023 9:45 AM EDT [address] [place] [address] ? Echocardiogram Report Name: TOM ADIN Dorene ? Study Date: 10/31/2023 07:57 AMBP: 106/76 mmHg ? Patient Location: [address] : 1940 ? Height: 163 cm ? Account: [id number] Age: 83 yrs ? Weight: 76 kg Gender: Female ?BSA: 1.8 m2 Ordering Physician: ROSA DEWEY Referring Physician: OMAIRA GIRON Performed By: HAFSA Carmichael Reason For Study: STEMI Interpreting Fellow: Raymond Warren. Exam Location: [facility]. Interpretation Summary -The left ventricle is [...] is no prior echocardiogram for comparison. Procedure Complete-10307. Satisfactory quality. There is sinus bradycardia. Left [...] Note Edgard Wang MD - 10/31/2023 [address] [place] [address] Echocardiogram Report Name: ADIN SANTOS Study Date: 407:57 AMBP: 106/76 mmHg Patient Location: [address] : 1940 Height: 163 cm Account: [id number] Age: 83 yrs Weight: 76 kg Gender: Female BSA: 1.8 m2 Ordering Physician: ROSA DEWEY Referring Physician: OMAIRA GIRON Performed By: HAFSA Carmichael Reason For Study: STEMI Interpreting Fellow: Raymond Warren. Exam Location: [facility]. Interpretation Summary -The left ventricle is [...] is no prior echocardiogram for comparison. Procedure Complete-32428. Satisfactory quality. There is sinus bradycardia. Left [...] * (ABNORMAL) Troponin (10/31/2023 8:51 AM EDT) [facility] Troponin-T, High Sensitivity 571(H) <=14 ng/L [facility] [...] troponin value can be found in the [facility] Test Catalog Troponin - [facility] Test Catalog Reference: Fourth [place] Definition of Myocardial Infarction. Journal of the [place] [employer] 2018;72:1738-0106 Blood 10/31/2023 8:51 AM EDT 10/31/2023 9:12 AM EDT Narrative Resulting Agency Comment Spec In Lab Rosa Cornejo MD CHEMISTRY ORDERABLE S Performing Organization Address [facility] Co de Phone Number [facility] [place] [address] * CARDIAC CATHETERIZATION (10/31/2023 8:10 AM EDT) Anatomical Region Laterality Modality Other Narrative 11/07/2023 9:42 AM EDT ?[facility] ? Cardiac Catheterization/Intervention Report ? Patient Name: Adin Santos ? Procedure Date: 10/30/2023 ? A #: [id number] ? Primary Physician: Rosa Dewey I ? Case #: [id number] ? File Name: [id number] ? Catheterization Order Number: [id number] ? [facility] ? Final Report [place], [place] ? Patient Name: ? Adin M. Goguen ?ID#: ?[id number] ? : ?1940 ? Procedure Date: ? [...] was designated as ASA Class III. The [facility] clinical frailty scale ?is 5: Mildly [...] procedure was Emergent. The indication for ?the optical laboratory technician visit is ACS less than or [...] A premounted 4.00 x 38 mm Andrea Henniker (RADHA) was deployed ? with a maximum [...] dose administered prior to arrival in the optical laboratory technician. ?Recommended anti-platelet/anti-thrombotic regimen: ?Continue aspirin 81 mg daily for 12 months then stop. ?Continue clopidogrel 75 mg daily for indefinitely. ?These recommendations are made at the time of the intervention. Patient ?and provider preferences or a changing clinical situation may require ?modification of this regimen. Consult [facility] Interventional Cardiology for ?questions. ? [...] Procedure Note Rosa Dewey MD - 12/05/2023 [facility] Cardiac Catheterization/Intervention Report Patient Name: Adin Santos Procedure Date: 10/30/2023 A #: [id number] Primary Physician: Rosa Dewey I Case #: [id number] File Name: [id number] Catheterization Order Number: [id number] [facility] FinalReport [place], [place] Patient Name: Adin Santos ID#:[id number] :1940 Procedure Date: October 30, 2023 Case [...] was designated as ASA Class III. The [facility] clinical frailtyscale is 5: Mildly Frail. Diagnostic Tests: Electrocardiography: EKG was assessed by ECG. EKG was Abnormal. EKG showed STDeviation >= 0.5 mm, other abnormality and dynamic EKG changes. Medications Prior to Procedure: Aspirin, Angiotensin II Receptor Rodrick, Beta Rodrick andStatin. Indications for Diagnostic Cath: The priority of the diagnostic procedure was Emergent. Theindication for the optical laboratory technician visit is ACS less than or [...] The priority for the procedure was Emergent.The [facility] indication for the procedure was STEMI-Immediate PCI [...] A premounted 4.00 x 38 mm Andrea Henniker (RADHA) wasdeployed with a maximum inflation pressure [...] dose administered prior to arrival in the optical laboratory technician. Recommended anti-platelet/anti-thrombotic regimen: Continue aspirin 81 mg daily for 12 months then stop. Continue clopidogrel 75 mg daily for indefinitely. These recommendations are made at the time of the intervention.Patient and provider preferences or a changing clinical situation mayrequire modification of this regimen. Consult [facility] Interventional Cardiologyfor questions. Conclusions: * [...] * (ABNORMAL) Troponin (10/31/2023 4:21 AM EDT) [facility] Troponin-T, High Sensitivity 457(H) <=14 ng/L [...] troponin value can be found in the [facility] Test Catalog Troponin - [facility] Test Catalog Reference: Fourth [place] Definition of Myocardial Infarction. Journal of the [place] [employer] 2018;72:4069-3740 Blood 10/31/2023 4:21 AM EDT 10/31/2023 4:30 AM EDT Narrative Resulting Agency Comment Spec In Lab Rosa Cornejo MD CHEMISTRY ORDERABLE S Performing Organization Address City/State/[facility] Co de Phone Number [facility] [place] [address] * (ABNORMAL) Differential, Automated (10/31/2023 3:05 AM EDT) Neutrophil % 71.7 % [facility] Neutrophil Absolute 8.21(H) 1.70 - 6.10 x10(3)/mc L [facility] Lymph % 16.9 % [facility] Lymphocytes Abs 1.9 0.9 - 3.2 x10(3)/mc L [facility] Monocyte % 9.4 % [facility] Monocyte Abs 1.1(H) 0.3 - 0.9 x10(3)/mc L [facility] Eos % 1.3 % [facility] Eosinophils Abs 0.2 0.0 - 0.4 x10(3)/mc L [facility] Basophil % 0.4 % [facility] Baso Absolute 0.0 0.0 - [...] MD HEMATOLOGY ORDERABLE S [facility] [place] [address] * (ABNORMAL) Hemogram (10/31/2023 3:05 AM EDT) White Blood Cell 11.5(H) 4.0 - 9.5 x10(3)/ L [facility] Red Blood Cell 3.75(L) 4.00 - 5.21 x10(6)/mc L [facility] Hemoglobin 12.6 11.7 - 15.5 g/dL [facility] Hematocrit 37.1 35.7 - 45.8 % [facility] Mean Cell Volume 98.9(H) 82.6 - 94.4 fL [facility] Mean Cell Hemoglobin 33.6(H) 27.1 - 32.0 pg [facility] Mean Cell Hemoglobin Concentration 34.0 31.7 - 35.0 g/dL [facility] Platelet 206 145 - 357 x10(3)/mc L [facility] RDW Standard Deviation 53.4(H) 37.0 - 46.0 fL [facility] RDW coefficient of variation 14.6(H) 11.5 - 14.1 % [facility] Mean Platelet Volume 11.1 7.6 - 12.9 fL [facility] NRBC% auto 0.0 % [facility] NRBC Absolute 0.000 0.000 - 0.000 x10(3)/mc L [facility] Blood 10/31/2023 3:05 AM EDT 10/31/2023 3:13 AM EDT Narrative Resulting Agency Comment Spec In Lab Qamar Gallardo MD HEMATOLOGY ORDERABLE S Performing Organization Address [facility] de Phone Number [facility] [place] [address] * (ABNORMAL) APTT (10/31/2023 3:05 AM EDT) [...] HEMATOLOGY ORDERABL ES Performing Organization Address [facility] de Phone Number [facility] [place] [address] * (ABNORMAL) Prothrombin Time (10/31/2023 3:05 AM [...] MD HEMATOLOGY ORDERABL ES [facility] [place] [address] * (ABNORMAL) Differential, Automated (10/31/2023 1:37 AM EDT) Neutrophil % 71.1 % [facility] Neutrophil Absolute 7.53(H) 1.70 - 6.10 x10(3)/mc L [facility] Lymph % 18.0 % [facility] Lymphocytes Abs 1.9 0.9 - 3.2 x10(3)/ L [facility] Monocyte % 8.7 % [facility] Monocyte Abs 0.9 0.3 - 0.9 x10(3)/mc L [facility] Eos % 1.6 % [facility] Eosinophils Abs 0.2 0.0 - 0.4 x10(3)/mc L [facility] Basophil % 0.4 % [facility] Baso Absolute 0.0 0.0 - [...] MD HEMATOLOGY ORDERABLE S [facility] [place] [address] * (ABNORMAL) Hemogram (10/31/2023 1:37 AM EDT) [...] [facility] NRBC% auto 0.0 % [facility] NRBC Absolute 0.000 0.000 - 0.000 x10(3)/mc L [facility] Blood 10/31/2023 1:37 AM EDT 10/31/2023 1:46 AM EDT Narrative Resulting Agency Comment Spec In Lab Qamar Gallardo MD HEMATOLOGY ORDERABLE S [facility] [place] [address] * Phosphorus (10/31/2023 1:37 AM EDT) Phosphorus 3.2 2.5 - 4.5 mg/dL [facility] Blood 10/31/2023 1:37 AM EDT 10/31/2023 1:46 AM EDT Narrative Resulting Agency Comment Spec In Lab Rosa Cornejo MD CHEMISTRY ORDERABLE S Performing Organization Address City/[facility]/ZIP Co de Phone Number [facility] [place] [address] * Magnesium (10/31/2023 1:37 AM EDT) Magnesium 0.83 0.69 - 1.07 mmol/L [facility] Blood 10/31/2023 1:37 AM EDT 10/31/2023 1:46 AM EDT Narrative Resulting Agency Comment Spec In Lab Rosa Cornejo MD CHEMISTRY ORDERABLE S Performing Organization Address City/[facility]/ZIP Co de Phone Number [facility] [place] [address] * Basic Metabolic Panel (non-fasting) (10/31/2023 1:37 AM EDT) Glucose 114 65 - 199 mg/dL [facility] [...] MD CHEMISTRY ORDERABLE S [facility] [place] [address] * (ABNORMAL) Troponin (10/31/2023 1:37 AM EDT) [...] troponin value can be found in the [facility] Test Catalog Troponin - [facility] Test Catalog Reference: Fourth [place] Definition of Myocardial Infarction. Journal of the [place] [employer] 2018;72:3606-9123 Blood 10/31/2023 1:37 AM EDT 10/31/2023 1:46 AM EDT Narrative Resulting Agency Comment Spec In Lab Rosa Cornejo MD CHEMISTRY ORDERABLE S Performing Organization Address City/[facility]/[place] [address] * EKG 12 Lead (10/31/2023 1:20 AM EDT) Ventricular rate 52 BPM MUSE SYSTEM Atrial Rate 52 BPM MUSE SYSTEM P-R Interval 224 ms MUSE SYSTEM QRS Duration 108 ms MUSE SYSTEM Q-T Interval 544 ms MUSE SYSTEM QTC Calculated (Bezet) 505 ms MUSE SYSTEM Calculated P [place] 90 degrees MUSE SYSTEM Calculated R [place] -57 degrees MUSE SYSTEM Calculated T [place] -63 degrees MUSE SYSTEM INTERPRETATION Sinus bradycardia with 1st degree A-V block Pulmonary disease pattern Left anterior fascicular block Moderate voltage criteria for LVH, may be normal variant ( R in aVL , [place] product ) T wave abnormality, consider inferior [...] (Bezet) 497 ms MUSE SYSTEM Calculated P [place] 75 degrees MUSE SYSTEM Calculated R [place] -53 degrees MUSE SYSTEM Calculated T [place] -57 degrees MUSE SYSTEM INTERPRETATION Sinus bradycardia with 1st degree A-V block Left anterior fascicular block Moderate voltage criteria for LVH, may be normal variant ( R in aVL , [place] product ) T wave abnormality, consider inferior [...] View (10/30/2023 10:10 PM EDT) WORKSTATION ID [id number] DH RAD Anatomical Region Laterality Modality Chest [...] and low lung volumes. Findings similar to coining press operator radiograph from CT 10/30/2023. Thank you for letting us participate in the care of this patient. ??If you are a health care provider and have any questions regarding this report, please contact the number below. ??For patients who have questions please contact the health family day care worker that requested your imaging first. ? Narrative [...] and low lung volumes. Findings similar to coining press operator radiograph from CT 10/30/2023. Thank you for letting us participate in the care of this patient. If youare a health care provider and have any questions regarding this report,please contact the number below. For patients who have questions please contactthe health family day care worker that requested your imaging first. Rosa Cornejo MD IMG DX ORDERABLES * Green Tube HOLD (10/30/2023 10:05 PM EDT) [facility] Green Hold Sample in lab. [facility] Blood Venous Draw / Unknown 10/30/2023 10:05 PM EDT 10/30/2023 10:13 PM EDT Qamar Gallardo MD CHEMISTRY ORDERABLES [facility] [place] [address] * (ABNORMAL) Differential, Automated (10/30/2023 10:05 PM EDT) Pathologist [facility] Neutrophil % 76.6 % [facility] Neutrophil Absolute 6.94(H) 1.70 - 6.10 x10(3)/mc L [facility] Lymph % 15.4 % [facility] Lymphocytes Abs 1.4 0.9 - 3.2 x10(3)/mc L [facility] Monocyte % 6.1 % [facility] Monocyte Abs 0.6 0.3 - 0.9 x10(3)/mc L [facility] Eos % 1.1 % [facility] Eosinophils Abs 0.1 0.0 - 0.4 x10(3)/mc L [facility] Basophil % 0.6 % [facility] Baso Absolute 0.0 0.0 - [...] MD HEMATOLOGY ORDERABLE S Performing Organization Address City/State/[facility] Co de Phone Number [facility] [place] [address] * (ABNORMAL) Hemogram (10/30/2023 10:05 PM EDT) [...] [facility] NRBC% auto 0.0 % [facility] NRBC Absolute 0.000 0.000 - 0.000 x10(3)/mc L [facility] Blood 10/30/2023 10:0 5 PM EDT 10/30/2023 10:12 PM EDT Narrative Resulting Agency Comment Spec In Lab Qamar Gallardo MD HEMATOLOGY ORDERABLE S Performing Organization Address City/[facility]/ZIP Co de Phone Number [facility] [place] [address] * Hemoglobin A1c (10/30/2023 10:05 PM EDT) [...] [id number] Estimated Average Glucose See note mg/dL [facility] Comment: Estimated Average Glucose not appropriate for patients over 70 years of age. Blood 10/30/2023 10:0 5 PM EDT 10/30/2023 10:12 PM EDT Narrative Resulting Agency Comment Spec In Lab Rosa Cornejo MD CHEMISTRY ORDERABLE S [facility] [place] [address] * Lipid Panel (Reflex Direct LDL) (10/30/2023 10:05 PM EDT) [facility] Cholesterol, Total 218 mg/dL Dorene [facility] Comment: Desirable: ? <200 mg/dL Borderline High: 200-239 mg/dL Higher: ?>hp=470 mg/dL Triglyceride 46 mg/dL [facility] Comment: Normal: ?<150 mg/dL Borderline High: 150-199 mg/dL High: ?200-499 mg/dL Very High: ? >nn=420 mg/dL HDL Cholesterol 64 mg/dL [facility] Comment: Females: High Risk: <50 mg/dL Males: High Risk: <40 mg/dL LDL Cholesterol 145 mg/dL [facility] Comment: Desirable: ? <100 mg/dL Above Desirable: 100-129 mg/dL Borderline High: 130-159 mg/dL High: ?160-189 mg/dL Very High: ? >iq=347 mg/dL Lipid Interpretation See Note [facility] [...] individuals with atherosclerotic cardiovascular disease (ASCVD)or LDL >sf=937 mg/dL, use a high-intensity statin (40-80 mg [...] MD CHEMISTRY ORDERABLE S Performing Organization Address [facility] Co de Phone Number [facility] [place] [address] * TSH [place] (10/30/2023 10:05 PM EDT) Thyroid Stimulating Hormone 3.35 0.27 - 4.20 mcIU/mL [facility] Comment: Reference Interval (mcIU/mL): Females: ??First Trimester: 0.23-3.88 ??Second Trimester: 0.22-3.90 ??Third Trimester: 0.44-4.66 Blood 10/30/2023 10:0 5 PM EDT 10/30/2023 10:12 PM EDT Narrative Resulting Agency Comment Spec In Lab Rosa Cornejo MD CHEMISTRY ORDERABLE S Performing Organization Address [facility]/ZIP Co de Phone Number [facility] [place] [address] * pro-Brain Natriuretic Peptide (10/30/2023 10:05 PM EDT) NT-proBNP 375 <=449 pg/mL [facility] Blood 10/30/2023 10:0 5 PM EDT 10/30/2023 10:12 PM EDT Narrative Resulting Agency Comment Spec In Lab Rosa Cornejo MD CHEMISTRY ORDERABLE S [facility] [place] [address] * (ABNORMAL) Comprehensive metabolic panel (non-fasting) (10/30/2023 10:05 PM EDT) Pathologist [facility] Glucose 121 65 - 199 mg/dL [facility] [...] MD CHEMISTRY ORDERABLE S Performing Organization Address City/[facility]/ZIP Co de Phone Number [facility] [place] [address] * Phosphorus (10/30/2023 10:05 PM EDT) Phosphorus 3.3 2.5 - 4.5 mg/dL [facility] Blood 10/30/2023 10:0 5 PM EDT 10/30/2023 10:12 PM EDT Narrative Resulting Agency Comment Spec In Lab Rosa Cornejo MD CHEMISTRY ORDERABLE S [facility] [place] [address] * Magnesium (10/30/2023 10:05 PM EDT) Magnesium 0.86 0.69 - 1.07 mmol/L [facility] Blood 10/30/2023 10:0 5 PM EDT 10/30/2023 10:12 PM EDT Narrative Resulting Agency Comment Spec In Lab Rosa Cornejo MD CHEMISTRY ORDERABLE S Performing Organization Address City/[facility]/ZIP Co de Phone Number [facility] [place] [address] * (ABNORMAL) Troponin (10/30/2023 10:05 PM EDT) [...] troponin value can be found in the [facility] Test Catalog Troponin - [facility] Test Catalog Reference: Fourth [place] Definition of Myocardial Infarction. Journal of the [place] [employer] 2018;72:9294-7214 Blood 10/30/2023 10:0 5 PM EDT 10/30/2023 10:12 PM EDT Narrative Resulting Agency Comment Spec In Lab Rosa Cornejo MD CHEMISTRY ORDERABLE S Performing Organization Address City/[facility]/ZIP Co de Phone Number [facility] [place] [address] * EKG 12 Lead (10/30/2023 8:21 PM EDT) Ventricular rate 49 BPM MUSE SYSTEM Atrial Rate 49 BPM MUSE SYSTEM P-R Interval 230 ms MUSE SYSTEM QRS Duration 96 ms MUSE SYSTEM Q-T Interval 526 ms MUSE SYSTEM QTC Calculated (Bezet) 475 ms MUSE SYSTEM Calculated P [place] 98 degrees MUSE SYSTEM Calculated R [place] -48 degrees MUSE SYSTEM Calculated T [place] -51 degrees MUSE SYSTEM INTERPRETATION Sinus bradycardia with 1st degree A-V block Incomplete right bundle branch block Left anterior fascicular block Moderate voltage criteria for LVH, may be normal variant ( R in aVL , [place] product ) T wave abnormality, consider inferior [...] (Recovery-Hospital Unit), Routine 0939 (Given - Provider: Mayr Sweeney RN) clopidogreL (Plavix) tablet 75 mg [...] L groin bleeding) 0529 (Given - Provider: Dainca Shipley RN)1516 (Given - Provider: Mary Sweeney [...] to a Procedural area)1548 ([facility] Unhold - Provider: Admin Adt) [id number] [...] to a Procedural area)1548 ([facility] Unhold - Provider: Admin Adt) midazolam [...] documented as of this encounter Care Teams [employer] Relationship Specialty Start Date End Date Rosie Mathews MD [address] [place] [id number] PCP - General Family Medicine 11/25/17 11/23/23 documented as of this encounter
--- OUTSIDE RECORDS SUMMARY | 2024-02-13 10:15 | XMS_ITS | Encounter Summary ---
Author Organization Formerly [facility] Address [facility] [place] [address] Care Team Providers Care Shank Archer Name Role Phone Rosie Mathews MD Primary Care Provider [phone] Reason for Visit * Reason Comments Skin Lesion * Consultation (Routine) - Closed Specialty Diagnoses / Procedures Referred By John hunt Referred To Contact Dermatology Diagnoses facial skin lesion Procedures pt would like to be seen PRADEEP Rosie Mathews MD [address] [place] [address] [facility] Dermatology [address] [place] [address] Referral ID Status Reason Start Date Expiration Date V isits Requested Visits Authorized [id number] Closed Consult, Test & Treat Connection [facility] 10/25/2017 10/25/2018 1 1 Encounter Details Date Type Department Care Team (Late st Contact Info) Description 11/25/2017 4:30 PM EDT Office Visit Dermatology at [facility] [address] [place] [address] Call, Radu Go MD [facility] DR SHERLYN [place] [address] Seborrheic keratosis; Fibrous papule of [...] by Radu Tom MD Resident in Dermatology [facility] Patient seen in conjunction with 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/tender: Terri Hale MD Section of Dermatology [facility] * Terri Hale MD - 11/25/2017 [...] AM EDT Office Visit Cardiology at [address] [address] Izaiah Meyer MD [facility] [place] [address] documented as of this encounter Visit Diagnoses Diagnosis Seborrheic keratosis Other seborrheic keratosis Fibrous papule of nose Benign neoplasm of skin of other and unspecified parts of face Skin tags, multiple acquired documented in this encounter Care Teams Shank Archer Relationship Specialty Start Date End Date Rosie Mathews MD [address] [place] [address] PCP - General Family Medicine 11/25/17 11/23/23 documented as of this encounter
--- OUTSIDE RECORDS SUMMARY | 2024-02-13 10:15 | XMS_ITS | Encounter Summary ---
Author Organization [facility] [place] [address] Care Team Providers Care Airbrush Artist Photography Name Role Phone Rosie Mathews MD Primary Care Provider [phone] Reason for Visit * Auth/Cert (Routine) Specialty Diagnoses / Procedures Referred By Contac t Referred To Contact Diagnoses Unstable angina Chest pain NSTEMI Procedures CARDIAC CATHETERIZATION Rosa Dewey MD [facility] [place] [address] [facility] Referral ID Status Reason Start Date Expiration Date Visits Re quested Visits Authorized [id number] 1 1 Encounter Details Date Type Department Care Team (Late st Contact Info) Description 10/30/2023 4:25 PM EDT - 10/30/2023 5:27 PM [place] [address] Rosa Dewey MD [facility] [address] [place], [place] [id number] CARDIAC CATHETERIZATION Social History Tobacco Use Types Packs/Day Years Used Date Smoking Tobacco: Former Smokeless Tobacco: Never Alcohol Use Standard Drinks/Week Comments Not Currently 0 (1 standard drink = 0.6 oz pur e alcohol) [facility] Inpatient Questions Answer Date Recorded Does Anyone [...] for hypertension and hyperlipidemia who presented to [facility] as a transfer from [facility] as a possible STEMI alert with acute onset chest pain. The patient reports that her symptoms initially began on Tuesday when she was walking to [facility] and experienced bilateral arm heaviness while walking with no other symptoms. Then, this afternoon shereports developing bilateral achy shoulder pain and nonradiating substernal left-sided chest pressure that was 7/10 in severity after coming home from [facility]. The patient denies any associated fevers, chills, diaphoresis, lightheadedness/dizziness, syncope/presyncope, dyspnea (either at rest or on exertion), palpitations, orthopnea, or PND. The patient subsequently presented to [facility] as a walk-in for further evaluation. [...] on repeat, her JAMIE resolved. Cardiology at [facility] was consulted for transfer; the patient was loaded with aspirin 324 mg and ticagrelor 180 mg, started on a heparin drip, and given nitroglycerin with improvement in chest pain. Upon arrival to [facility], the patient was taken directly to the Chain Maker Hand. Two lesions were discovered: one in the prox RCA (felt to almost be a SHOW JUMPING INSTRUCTOR but they were able to wire, balloon, [...] administered prior to arrival in the labor arbitrator hearing office. Recommended anti-platelet/anti-thrombotic regimen: Continue aspirin 81 mg [...] and low lung volumes. Findings similar to test conductor radiograph from CT 10/30/2023. Pending Studies and [...] 10:40 AM Izaiah Meyer MD Cardiology at [facility] Arrive at: [facility] [address] [phone] Future Orders Complete By Expires Referral to Cardiac Rehab [[id number] Custom] As directed Process Instructions: If no progress note charted, please enter Clinical details in comments. Scheduling Instructions: Questions: My question or request is: STEMI. Cardiac rehab at [facility]. Referral to Home Health [[id number] Custom] As directed Process Instructions: If no progress note charted, please enter Clinical details in comments. Scheduling Instructions: Comments: Please evaluate Adin Santos for admission to Home Health. [address] [place] [address] [place] [phone] (home) Date of : 1940 Inpatient DOCUMENTATION FOR VNA SERVICES (INCLUDING THOSE PATIENTS WITH MEDICARE COVERAGE REQUIRING HOME VNA SERVICES AND/OR HOSPICE SERVICES) PATIENT'S LOCATION: Adin Santos [address] [facility] [id number] (home) Cell: Telephone Information: Industrial Cleaning Technician's Name: self In discussion with the attending physician, it is certified that this patient is under their care and that they, or a Nurse Practitioner, Clinical Nurse specialist or Physician Greenhouse Assistant who is working directly with them, had [...] regarding health issues HOME HEALTH CARE AGENCY: [facility] [address] [place] [id number] START OF CARE: within 24-48 hours of [...] Mathews MD [address] / [facility] [address] . All A agencies which cover the [...] MD / Dr. Masood Pierson [address] [place] [address] 11/09/23 1:55 PM arrival for 2:10 PM appointment Receiving Weigher: Izaiah Meyer MD [address] [place] [address] , 11/24/2023 10:40 AM Your Inpatient Medical Team at [facility] Name(s) of your inpatient provider(s): Attending physician: Rosa Hugo MD Resident physicians: Emile Robles MD; Elmer Tamez MD If you have non-emergent questions, prior to your follow-up visit call: Tuesday-Tuesday between the hours of 8AM-5PM please call the Cardiology Clinic [phone] to speak with a nurse. All other hours please call the Hospital Commutator Assembler [phone] and ask to speak to the shake cutter on-call. Your Primary Care Provider Rosie Mathews MD [phone] For questions regarding this document or issues relating to this hospitalization on the Medical Service, please contact your inpatient physician through the [facility] Commutator Assembler . Issues afterhours and on weekends will be handled by the Receiving Weigher staff on-call. Associated attestation - Rosa Hugo [...] MD / Dr. Masood Pierson [address] [place] [address] 11/09/23 1:55 PM arrival for 2:10 PM appointment Receiving Weigher: Izaiah Meyer MD [address] [place] [address] , 11/24/2023 10:40 AM Your Inpatient Medical Team at [facility] Name(s) of your inpatient provider(s): Attending physician: Rosa Hugo MD Resident physicians: Emile Robles MD; Elmer Tamez MD If you have non-emergent questions, prior to your follow-up visit call: Tuesday-Tuesday between the hours of 8AM-5PM please call the Cardiology Clinic [phone] to speak with a nurse. All other hours please call the Hospital Commutator Assembler [phone] and ask to speak to the shake cutter on-call. Your Primary Care Provider Rosie Mathews MD [phone] documented in this encounter Medications at Time [...] for hypertension and hyperlipidemia who presented to [facility] as a transfer from [facility] as a possible STEMI alert with [...] for hypertension and hyperlipidemia who presented to [facility] as a transfer from [facility] as a possible STEMI alert with [...] Resident on Cardiology Service Cardiology S1 (Pager [phone]) Note written in conjunction with Claudio Perla [facility] Medical Student, MS3 Associated attestation - Rosa [...] Nirmala Webb - 11/01/2023 11:25 AM EDT Shower Maid Encounter Note Patient Name: Adin Santos : [id number] MR#: [id number] Admit Date: 10/30/2023 5:11 PM Hospital Day 2 days Narrative: Self initiated visit to patient for Spiritual support in a regular unit rounds. Assessment: Patient is in the bathroom at the time of this visit. Not a good time for Labor Arbitrator Hearing Office visit. Intervention and Outcome: An attempted visit to patient for Spiritual support. Patient is not available at the time of this visit. Patient is in the bathroom per a nurse in the room. Not a good time for Spiritual support. Follow-up: Another time. Time in Direct Care: Nirmala Webb 11/01/2023 * lEmer Tamez MD - 11/01/2023 7:22 AM EDT Inpatient Cardiology Progress Note Patient Name: Adin Santos Date of Admission: 10/30/2023 ( Hospital Day 2 days ) Service: S1 ID: Adin Santos is a 83 y.o. female PMH significant for hypertension and hyperlipidemia who presented to [facility] as a transfer from [facility] as a possible STEMI alert with [...] and low lung volumes. Findings similar to test conductor radiograph from CT 10/30/2023. Scheduled Medications: [MAR [...] for hypertension and hyperlipidemia who presented to [facility] as a transfer from [facility] as a possible STEMI alert with [...] into the 170s systolic again. - Hold OTMMY-I/ARB pending course - Continue hydralazine for HTN [...] Resident on Cardiology Service Cardiology S1 (Pager [phone]) Note written in conjunction with Claudio Perla [facility] Medical Student, MS3 Associated attestation - Rosa [...] for hypertension and hyperlipidemia who presented to [facility] as a transfer from [facility] as a possible STEMI alert with acute onset chest pain. Active Problems: Active Hospital Problems Diagnosis Unstable angina Resolved Hospital Problems No resolved problems to display. 24 hr events: - Cath'd yesterday with lesion in the proximal RCA (initially thought it was SHOW JUMPING INSTRUCTOR but they were ableto wire, balloon and [...] and low lung volumes. Findings similar to test conductor radiograph from CT 10/30/2023. TTE (10/30): Interpretation [...] for hypertension and hyperlipidemia who presented to [facility] as a transfer from [facility] as a possible STEMI alert with [...] Resident on Cardiology Service Cardiology S1 (Pager [phone]) Note written in conjunction with Claudio Perla [facility] Medical Student, MS3 Associated attestation - Rosa [...] PCP: Rosie Mathews MD PCP phone number: [phone] Date of Admission: 10/30/2023 ( Hospital Day 0 days ) Attending:Rosa Cornejo MD ID: Adin Santos is a 83 y.o. female PMH significant for hypertension and hyperlipidemia who presented to [facility] as a transfer from [facility] as a possible STEMI alert with acute onset chest pain. The patient reports that her symptoms initially began on Tuesday when she was walking to [facility] and experienced bilateral arm heaviness while walking with no other symptoms. Then, this afternoon shereports developing bilateral achy shoulder pain and nonradiating substernal left-sided chest pressure that was 7/10 in severity after coming home from [facility]. The patient denies any associated fevers, chills, diaphoresis, lightheadedness/dizziness, syncope/presyncope, dyspnea (either at rest or on exertion), palpitations, orthopnea, or PND. The patient subsequently presented to [facility] as a walk-in for further evaluation. [...] on repeat, her JAMIE resolved. Cardiology at [facility] was consulted for transfer; the patient was loaded with aspirin 324 mg and ticagrelor 180 mg, started on a heparin drip, and given nitroglycerin with improvement in chest pain. Upon arrival to [facility], the patient was taken directly to the Chain Maker Hand. 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 Findings similar to test conductor radiograph from CT 10/30/2023. Assessment & Plan: Adin Santos is a 83 y.o. female PMH significant for hypertension and hyperlipidemia who presented to [facility] as a transfer from [facility] as a possible STEMI alert with [...] with HTN HLD transferred with chest from [facility]. BP 217/68, HR [address] [...] information for follow-up Home Health & Hospice, [place] [address] TANESHA BOYCE confirmed with Brittany CARVAJAL that they will see the patient within 24-48 hours of discharge for start of care. Transportation: family or friend will provide Wheelchair van/Ambulance? No Functional status prior to admission: Assistive Equipment Home Environment: Others in the home: alone. Current Living Arrangements: home/apartment/condo. Accessibility Concerns:1st floor apartment in half-way community; handicapped accessible. Current Functional Ability: Assistive [...] in the room. Electrolytes replaced, see MAR. vp lab sites remained C/D/I with baseline ecchymosis unchanged. Pt complained of back pain, lidocaine patch given. Right IV infiltrated during infusion, patient is marked with sharpie, IV removed. See flowsheet for I+O's and safety rounding. Patient is able to make needs known and call capps within reach. PLAN MOVING FORWARD: Monitor Tele, control BP, monitor labor arbitrator hearing office sites, D/C Planning INDIVIDUALIZED FALL PREVENTION INTERVENTIONS: [...] in an outpatient cardiac rehabilitation program at [facility] was discussed. Patient agrees to a referral [...] above on RA. PT went to labor arbitrator hearing office today. Left fem site oozed throughout shift, [...] FORWARD: Monitor Tele, control BP, monitor labor arbitrator hearing office sites, D/C Planning INDIVIDUALIZED FALL PREVENTION INTERVENTIONS: [...] Admitted From: Transfer from another hospital Location: [facility] Reason for Hospitalization: chest pain Covid Vaccination Status: 1st, 2nd & booster Past medical History: No past medical history on file. Hospitalizations Within the Past 30 Days: no previous admission in last 30 days Current Decision-Making Capacity: Self If AD's have not been completed the following surrogate would be surrogate decision maker per [place] surrogate decision making law. (Only good for 180 days) Any patient receiving care in [place] must abide by [place] law. The hierarchy for surrogate decision making [...] (i) The agent with financial power of assistant district attorney or a conservator appointed in accordance [...] Arrangements: home/apartment/condo. Accessibility Concerns:1st floor apartment in half-way community; handicapped accessible. In the last 12 [...] has the electric, gas, oil, or water [employer] threatened to shut off services in your [...] toilet seat Home Address confirmed as: [address] [facility] [address] Social & Family Supports: All names listed below confirmed with patient as current and correct Extended Emergency Contact Information Primary Emergency Contact: Iris Downing Address: [address], [place] [id number] [place] [address] Mobile Relation: Child Secondary Emergency Contact: Karen More Address: [address] [facility] Mobile Relation: Child Current Care Provided by: self Provides Primary Care For: no one Caregiver if needed: child(emmanuel), adult Quality of Family relationships: involved, supportive Community Resources being provided currently: other (see comments) ([facility] (1xweekly)) Behavioral Health [...] Insurance: N/A Prescription Coverage: Yes Preferred Pharmacy: [facility] [place], [place] - [address] [place] [address] [place] [address] Status: Patient is a : No Primary Care Provider listed: Masood Pierson MD [phone] Patient/Caregiver Goals of Treatment: home when MR Potential Needs for Transition of Care: home health care Agency Referrals: Not Applicable I have met with the patient to: discuss discharge planning needs. provide the [facility], Office of Care Management letter from the Manufacturing Supervisor pertaining to rehab referrals. provide a letter describing our affiliations within the [facility] and educate about their right to choose where referrals are sent. provide a list of Home Health Agencies / Durable Medical Equipment vendors which serve their preferred geographic area. provided patient with CMS Star Quality Rating handout. They have requested referrals to: [facility] [address] [place] [address] Note routed to a Plug Saw Operator who will communicate referrals to facilities [...] results. PO hydralazine added for BP control. vp lab sites remain C/D/I, ecchymosis unchanged th roughout shift. See flowsheet for I+O's and safety rounding. Patient is able to make needs known and call capps within reach. PLAN MOVING FORWARD: Monitor Tele, control CP and BP, NPO at MD for cath, monitor labor arbitrator hearing office sites, D/C Planning INDIVIDUALIZED FALL PREVENTION INTERVENTIONS: [...] AM EDT Office Visit Cardiology at [address] [address] Izaiah Meyer MD [facility] [place] [address] Scheduled Referrals Name Type Priority Associated Diagnoses [...] 3:46 AM EDT) Neutrophil % 63.3 % [facility] Neutrophil Absolute 5.28 1.70 - 6.10 x10(3)/mc L [facility] Lymph % 15.2 % [facility] Lymphocytes Abs 1.3 0.9 - 3.2 x10(3)/mc L [facility] Monocyte % 16.9 % [facility] Monocyte Abs 1.4(H) 0.3 - 0.9 x10(3)/mc L [facility] Eos % 3.7 % [facility] Eosinophils Abs 0.3 0.0 - 0.4 x10(3)/mc L [facility] Basophil % 0.5 % [facility] Baso Absolute 0.0 0.0 - [...] ORDERABLE S [facility] [place] [address] * (ABNORMAL) Hemogram (11/03/2023 3:46 AM EDT) White Blood Cell 8.3 4.0 - 9.5 x10(3)/[facility] Red Blood Cell 3.77(L) 4.00 - 5.21 x10(6)/[facility] Hemoglobin 13.1 11.7 - 15.5 [...] Platelet 181 145 - 357 x10(3)/ L [facility] RDW Standard Deviation 54.7(H) 37.0 - 46.0 [facility] RDW coefficient of variation 14.6(H) 11.5 - 14.1 % [facility] Mean Platelet Volume 11.2 7.6 - 12.9 [facility] NRBC% auto 0.0 % [facility] NRBC Absolute 0.000 0.000 - 0.000 x10(3)/ L [facility] Blood 11/03/2023 3:46 AM EDT 11/03/2023 4:11 AM EDT Narrative Resulting Agency Comment Spec In Lab Qamar Gallardo MD HEMATOLOGY ORDERABLE S Performing Organization Address City/[facility]/ZIP Co de Phone Number [facility] [place] [address] * Phosphorus (11/03/2023 3:46 AM EDT) Phosphorus 3.2 2.5 - 4.5 mg/dL [facility] Comment:result rechecked-KS Blood 11/03/2023 3:46 AM EDT 11/03/2023 4:11 AM EDT Narrative Resulting Agency Comment Spec In Lab Rosa Cornejo MD CHEMISTRY ORDERABLE S Performing Organization Address [facility]/ZIP Co de Phone Number [facility] [place] [address] * Magnesium (11/03/2023 3:46 AM EDT) Magnesium 0.90 0.69 - 1.07 mmol/L [facility] Blood 11/03/2023 3:46 AM EDT 11/03/2023 4:11 AM EDT Narrative Resulting Agency Comment Spec In Lab Rosa Cornejo MD CHEMISTRY ORDERABLE S Performing Organization Address City/[facility]/ZIP Co de Phone Number [facility] [place] [address] * (ABNORMAL) Basic Metabolic Panel (non-fasting) (11/03/2023 [...] ORDERABLE S [facility] [place] [address] * EKG 12 Lead (11/02/2023 12:44 PM EDT) Ventricular rate 83 BPM MUSE SYSTEM Atrial Rate 83 BPM MUSE SYSTEM P-R Interval 216 ms MUSE SYSTEM QRS Duration 90 ms MUSE SYSTEM Q-T Interval 384 ms MUSE SYSTEM QTC Calculated (Bezet) 451 ms MUSE SYSTEM Calculated P [place] 92 degrees MUSE SYSTEM Calculated R [place] -51 degrees MUSE SYSTEM Calculated T [place] -33 degrees MUSE SYSTEM INTERPRETATION Sinus rhythm with 1st degree A-V block with Premature atrial complexes Left axis deviation Moderate voltage criteria for LVH, may be normal variant ( R in aVL , Burton product ) Anterolatera l infarct (cited on or before 01-NOV-2023) Abnormal ECG When compared with ECG of 01-NOV-2023 22:10, Premature atrial complexes are now Present [place] interval has increased Vent. rate has decreased [...] In Lab Elmer Tamez MD URINE ORDERABLES [facility] [place] [address] * (ABNORMAL) Urinalysis with reflex Culture (11/02/2023 [...] HOSPITAL LABORATORY Leukocytes, Urine Dipstick Small(A) Negative [facility] Appearance, Urine Dipstick Cloudy(A) Clear [facility] Specific [place] Urine Automated >=1.030(A) 1.005 - 1.030 [facility] Color, Urine Dipstick Dark Yellow Yellow [facility] Reflex to Culture Yes [facility] Clean Catch Urine 11/02/2023 11:40 AM EDT 11/02/2023 12:04 PM EDT Narrative Resulting Agency Comment Spec In Lab Rosa Hugo MD URINE ORDERABLES [facility] [place] [address] * Respiratory Panel PCR (11/02/2023 10:15 AM EDT) Respiratory Panel Source OFFICE RENTAL CLERK Swab [facility] Respiratory Panel PCR Negative Negative [facility] Comment: Respiratory Panels are performed on the [place], using multiplexed PCR nucleic acid detection. ??Negative [...] performed using the BioFire Respiratory Panel 2.1 ([employer]) as authorized by the FDA issued Emergency Use Authorization (EUA). This panel also tests for multiple other viral and bacterial pathogens. This assay is intended for In-vitro Diagnostic (IVD) use with nasopharyngeal swabs in viral transport media. The assay is performed based on the instructions for use and additional guidance provided by the FDA. Testing is performed in laboratories within the [facility], each of which is certified under [...] fact sheets at the following FDA website: https://www.fda.gov/medical-devices/jxoihpibhvq-krxuyqk-6327-udkmx-88-corrxihzh- use-a jnrxkwfkztbfo-qowjrqo-wpkpmqk/dhbmz-eudcjogimge-stfa Human Metapneumovirus Not Detected Not Detected [facility] [...] ERAL ORDERABLES [facility] [place] [place] [address] * XR Chest One View (11/02/2023 2:51 AM EDT) WORKSTATION ID [id number] DH RAD Anatomical Region Laterality Modality Chest [...] who have questions please contact the health manager respiratory care that requested your imaging first. ? Electronically signed by: Omaira Tran MD, [facility] ([phone]), at 11/02/2023 4:56 AM Narrative 11/02/2023 4:56 [...] patients who have questions please contactthe health manager respiratory care that requested your imaging first. Electronically signed by: Omaira Tran MD, [facility]([phone]), at 11/02/2023 4:56 AM Rosa Hugo MD IMG DX ORDERABLES * (ABNORMAL) Differential, Automated (11/02/2023 12:35 AM EDT) Neutrophil % 76.5 % [facility] Neutrophil Absolute 7.69(H) 1.70 - 6.10 x10(3)/mc L [facility] Lymph % 8.3 % [facility] Lymphocytes Abs 0.8(L) 0.9 - 3.2 x10(3)/mc L [facility] Monocyte % 12.9 % [facility] Monocyte Abs 1.3(H) 0.3 - 0.9 x10(3)/mc L [facility] Eos % 1.4 % [facility] Eosinophils Abs 0.1 0.0 - 0.4 x10(3)/mc L [facility] Basophil % 0.4 % [facility] Baso Absolute 0.0 0.0 - [...] Absolute 0.05(H) 0.00 - 0.04 x10(3)/ L [facility] Blood 11/02/2023 12:3 5 AM EDT 11/02/2023 12:43 AM EDT Narrative Resulting Agency Comment Spec In Lab Qamar Gallardo MD HEMATOLOGY ORDERABLE S [facility] [place] [address] * (ABNORMAL) Hemogram (11/02/2023 12:35 AM EDT) [...] Platelet Volume 11.4 7.6 - 12.9 fL [facility] NRBC% auto 0.0 % [facility] NRBC Absolute 0.000 0.000 - 0.000 x10(3)/mc L [facility] Blood 11/02/2023 12:3 5 AM EDT 11/02/2023 12:43 AM EDT Narrative Resulting Agency Comment Spec In Lab Qamar Gallardo MD HEMATOLOGY ORDERABLE S [facility] [place] [address] * (ABNORMAL) Phosphorus (11/02/2023 12:35 AM EDT) Phosphorus 1.6(L) 2.5 - 4.5 mg/dL [facility] Blood 11/02/2023 12:3 5 AM EDT 11/02/2023 12:43 AM EDT Narrative Resulting Agency Comment Spec In Lab Rosa Cornejo MD CHEMISTRY ORDERABLE S Performing Organization Address [facility]/ZIP Co de Phone Number [facility] [place] [address] * Magnesium (11/02/2023 12:35 AM EDT) Magnesium 0.87 0.69 - 1.07 mmol/L [facility] Blood 11/02/2023 12:3 5 AM EDT 11/02/2023 12:43 AM EDT Narrative Resulting Agency Comment Spec In Lab Rosa Cornejo MD CHEMISTRY ORDERABLE S Performing Organization Address City/[facility]/ZIP Co de Phone Number [facility] [place] [address] * Basic Metabolic Panel (non-fasting) (11/02/2023 12:35 [...] ORDERABLE S [facility] [place] [address] * Blood culture (11/02/2023 12:35 AM EDT) Blood Culture No growth at 5 days. [facility] Blood 11/02/2023 12:3 5 AM EDT 11/02/2023 1:55 AM EDT Comment:#2 site ukn Narrative Resulting Agency Comment Spec In Lab Rosa Hugo MD MICROBIOLOGY - BLO OD ORDERABLES Performing Organization Address [facility] Co de Phone Number [facility] [place] [address] * Blood culture (11/02/2023 12:15 AM EDT) Blood Culture No growth at 5 days. [facility] Blood 11/02/2023 12:1 5 AM EDT 11/02/2023 1:54 AM EDT Comment:#1site unk Narrative Resulting Agency Comment Spec In Lab Rosa Hugo MD MICROBIOLOGY - BLO OD ORDERABLES Performing Organization Address [facility] Co de Phone Number [facility] [place] [address] * EKG 12 Lead (11/01/2023 10:10 PM EDT) Ventricular rate 139 BPM MUSE SYSTEM Atrial Rate 139 BPM MUSE SYSTEM P-R Interval 168 ms MUSE SYSTEM QRS Duration 84 ms MUSE SYSTEM Q-T Interval 286 ms MUSE SYSTEM QTC Calculated (Bezet) 435 ms MUSE SYSTEM Calculated R Tenaha -59 degrees MUSE SYSTEM Calculated T Tenaha -27 degrees MUSE SYSTEM INTERPRETATION Mid-RP tachycardia, consider sinus tachycardia or SVT Left axis deviation Moderate voltage criteria for LVH, may be normal variant ( R in aVL , Burton product ) Inferior infarct (cited on or before 01-NOV-2023) Anterolateral infarct (cited on or before 01-NOV-2023) Abnormal ECG When compared with ECG of 01-NOV-2023 15:22, Vent. rate Although rate has increased Serial changes of Anterior infarct Present I personally reviewed the tracing and edited the fellows interpretation Confirmed by fellow MD Bowen Ashley ([id number]) on 11/04/2023 7:57:50 AM Confirmed by MD Carrillo Danette ([id number]) on 11/04/2023 4:32:03 PM MUSE SYSTEM 11/01/2023 10:1 0 PM EDT 11/04/2023 4:32 PM EDT Rosa Cornejo MD ECG ORDERABLES MUSE SYSTEM * (ABNORMAL) Hemogram (11/01/2023 10:06 PM EDT) White Blood Cell 10.4(H) 4.0 - 9.5 x10(3)/[facility] LABORATORY Red Blood Cell 4.11 4.00 - 5.21 x10(6)/[facility] LABORATORY Hemoglobin 14.0 11.7 - 15.5 [...] Platelet 197 145 - 357 x10(3)/ L [facility] RDW Standard Deviation 54.0(H) 37.0 - 46.0 fL [facility] RDW coefficient of variation 14.6(H) 11.5 - 14.1 % [facility] Mean Platelet Volume 11.2 7.6 - 12.9 fL [facility] NRBC% auto 0.0 % [facility] NRBC Absolute 0.000 0.000 - 0.000 x10(3)/ L [facility] Blood 11/01/2023 10:0 6 PM EDT 11/01/2023 10:22 PM EDT Narrative Resulting Agency Comment Spec In Lab Rosa Hugo MD HEMATOLOGY ORDERAB LES Performing Organization Address City/[facility]/ZIP Co de Phone Number [facility] [place] [address] * POCT Glucose (11/01/2023 5:59 PM EDT) [facility] Signature Glucose, POC 104 65 - 199 mg/dL [facility] Comment: Supplemental ranges: <140 mg/dL before meals <180 mg/dL all other times of the day Blood 11/01/2023 5:59 PM EDT 11/01/2023 5:59 PM EDT Rosa Hugo MD POINT OF CARE TEST ORDERABLES Performing Organization Address [facility] Co de Phone Number [facility] [place] [address] * POCT Glucose (11/01/2023 5:35 PM EDT) [facility] Glucose, POC 85 65 - 199 mg/dL [facility] Comment: Supplemental ranges: <140 mg/dL before meals <180 mg/dL all other times of the day Blood 11/01/2023 5:35 PM EDT 11/01/2023 5:35 PM EDT Rosa Hugo MD POINT OF CARE TEST ORDERABLES Performing Organization Address City/[facility] Co de Phone Number [facility] [place] [address] * EKG 12 Lead (11/01/2023 3:22 PM EDT) Ventricular rate 59 BPM MUSE SYSTEM Atrial Rate 59 BPM MUSE SYSTEM P-R Interval 220 ms MUSE SYSTEM QRS Duration 94 ms MUSE SYSTEM Q-T Interval 428 ms MUSE SYSTEM QTC Calculated (Bezet) 423 ms MUSE SYSTEM Calculated P Tenaha 76 degrees MUSE SYSTEM Calculated R Tenaha -50 degrees MUSE SYSTEM Calculated T Tenaha -59 degrees MUSE SYSTEM INTERPRETATION Sinus bradycardia [...] Modality Other Narrative 11/02/2023 4:57 PM EDT ?[facility] ? Cardiac Catheterization/Intervention Report ? Patient Name: Adin Santos ? Procedure Date: 11/01/2023 ? A #: [id number] ? Primary Physician: Rosa Dewey I ? Case #: [id number] ? File Name: [id number] ? Catheterization Order Number: [id number] ? [facility] ? Final Report [place], [place] ? Patient Name: ? Adin M. Goguen ?ID#: ?[id number] ? : ?1940 ? Procedure Date: ? [...] was Urgent. The indication for ?the labor arbitrator hearing office visit is ACS greater than 24 hrs. [...] ??A premounted ? 3.50 x 15 mm [place] Hitchcock (RADHA) was deployed with a maximum ? [...] A premounted 3.50 x 15 mm Andrea Hitchcock (RADHA) was deployed ? with a maximum [...] administered prior to arrival in the labor arbitrator hearing office. ?Recommended anti-platelet/anti-thrombotic regimen: ?Continue aspirin 81 mg daily for indefinitely. ?Continue clopidogrel 75 mg daily for 12 months then stop. ?These recommendations are made at the time of the intervention. Patient ?and provider preferences or a changing clinical situation may require ?modification of this regimen. Consult [facility] Interventional Cardiology for ?questions. ?The 1 year [...] Procedure Note Rosa Dewey MD - 12/12/2023 [facility] Cardiac Catheterization/Intervention Report Patient Name: Adin Santos Procedure Date: 11/01/2023 A #: [id number] Primary Physician: Rosa Dewey I Case #: [id number] File Name: [id number] Catheterization Order Number: [id number] [facility] FinalReport [place], [place] Patient Name: Adin Santos ID#:[id number] :1940 Procedure Date: November 01, 2023 Case [...] was designated as ASA Class III. [facility]: Vulnerable. Diagnostic Tests: Prior Coronary Angiography: LV ejection fraction within 6 months is 65%. Electrocardiography: EKG was assessed by ECG. EKG was Abnormal. EKG showed other abnormality. Medications Prior to Procedure: Aspirin, Angiotensin II Receptor Rodrick and Statin. Indications for Diagnostic Cath: The priority of the diagnostic procedure was Urgent. The indicationfor the labor arbitrator hearing office visit is ACS greater than 24 hrs. [...] 14 atmospheres. Apremounted 3.50 x 15 mm [place] Hitchcock (RADHA) was deployed with amaximum inflation pressure [...] The lesion was predilated with a 3.00mm [id number] MM balloon with a maximum inflation pressure of 14atmospheres. A premounted 3.50 x 15 mm Andrea Hitchcock (RADHA) wasdeployed with a maximum inflation pressure [...] administered prior to arrival in the labor arbitrator hearing office. Recommended anti-platelet/anti-thrombotic regimen: Continue aspirin 81 mg daily for indefinitely. Continue clopidogrel 75 mg daily for 12 months then stop. These recommendations are made at the time of the intervention.Patient and provider preferences or a changing clinical situation mayrequire modification of this regimen. Consult [facility] Interventional Cardiologyfor questions. The 1 year bleeding [...] * POCT Glucose (11/01/2023 7:06 AM EDT) [facility] Glucose, POC 93 65 - 199 mg/dL [facility] Comment: Supplemental ranges: <140 mg/dL before meals <180 mg/dL all other times of the day Blood 11/01/2023 7:06 AM EDT 11/01/2023 7:06 AM EDT Jean Laboy MD POINT OF CARE TEST O RDERABLES [facility] [place] [address] * (ABNORMAL) Differential, Automated (11/01/2023 3:09 AM EDT) Pathologist [facility] Neutrophil % 63.9 % [facility] Neutrophil Absolute 5.54 1.70 - 6.10 x10(3)/mc L [facility] Lymph % 20.0 % [facility] Lymphocytes Abs 1.7 0.9 - 3.2 x10(3)/mc L [facility] Monocyte % 11.9 % [facility] Monocyte Abs 1.0(H) 0.3 - 0.9 x10(3)/mc L [facility] Eos % 3.2 % [facility] Eosinophils Abs 0.3 0.0 - 0.4 x10(3)/ L [facility] Basophil % 0.5 % [facility] Baso Absolute 0.0 0.0 - [...] MD HEMATOLOGY ORDERABLE S Performing Organization Address City/State/[facility] Co de Phone Number [facility] [place] [address] * (ABNORMAL) Hemogram (11/01/2023 3:09 AM EDT) [...] Platelet 184 145 - 357 x10(3)/mc L [facility] RDW Standard Deviation 53.5(H) 37.0 - 46.0 fL [facility] RDW coefficient of variation 14.6(H) 11.5 - 14.1 % [facility] Mean Platelet Volume 11.3 7.6 - 12.9 fL [facility] NRBC% auto 0.0 % [facility] NRBC Absolute 0.000 0.000 - 0.000 x10(3)/mc L [facility] Blood 11/01/2023 3:09 AM EDT 11/01/2023 3:29 AM EDT Narrative Resulting Agency Comment Spec In Lab Qamar Gallardo MD HEMATOLOGY ORDERABLE S Performing Organization Address City/[facility]/ZIP Co de Phone Number [facility] [place] [address] * Phosphorus (11/01/2023 3:09 AM EDT) Phosphorus 2.5 2.5 - 4.5 mg/dL [facility] Blood 11/01/2023 3:09 AM EDT 11/01/2023 3:29 AM EDT Narrative Resulting Agency Comment Spec In Lab Rosa Cornejo MD CHEMISTRY ORDERABLE S Performing Organization Address City/[facility]/ZIP Co de Phone Number [facility] [place] [address] * Magnesium (11/01/2023 3:09 AM EDT) Magnesium 0.82 0.69 - 1.07 mmol/L [facility] Blood 11/01/2023 3:09 AM EDT 11/01/2023 3:29 AM EDT Narrative Resulting Agency Comment Spec In Lab Rosa Cornejo MD CHEMISTRY ORDERABLE S [facility] [place] [address] * (ABNORMAL) Basic Metabolic Panel (non-fasting) (11/01/2023 [...] ORDERABLE S [facility] [place] [address] * (ABNORMAL) Troponin (10/31/2023 2:46 PM EDT) [...] value can be found in the [facility] Test Catalog Troponin - [facility] Test Catalog Reference: Fourth Holland Definition of Myocardial Infarction. Journal of the [place] [employer] 2018;72:2922-3079 Blood 10/31/2023 2:46 PM EDT 10/31/2023 2:55 PM EDT Narrative Resulting Agency Comment Spec In Lab Jean Laboy MD CHEMISTRY ORDERABLES Performing Organization Address [facility] Co de Phone Number [facility] [place] [address] * EKG 12 Lead (10/31/2023 1:07 PM EDT) Ventricular rate 54 BPM MUSE SYSTEM Atrial Rate 54 BPM MUSE SYSTEM P-R Interval 218 ms MUSE SYSTEM QRS Duration 92 ms MUSE SYSTEM Q-T Interval 540 ms MUSE SYSTEM QTC Calculated (Bezet) 512 ms MUSE SYSTEM Calculated P Tenaha 85 degrees MUSE SYSTEM Calculated R Tenaha -44 degrees MUSE SYSTEM Calculated T Tenaha -69 degrees MUSE SYSTEM INTERPRETATION Sinus bradycardia with 1st degree A-V block Left axis deviation Moderate voltage criteria for LVH, may be normal variant ( R in aVL , Burton product ) T wave abnormality, consider inferolateral ischemia Prolonged QT Abnormal ECG When compared with ECG of 30-OCT-2023 20:21, Incomplete right bundle branch block is no longer Present Confirmed by MD NEFTALI, CHIDI ([id number]) on 10/31/2023 2:28:46 PM MUSE SYSTEM 10/31/2023 1:07 PM EDT 10/31/2023 2:28 PM EDT Rosa Cornejo MD ECG ORDERABLES Performing Organization Address [facility] Co de Phone Number MUSE SYSTEM * (ABNORMAL) Troponin (10/31/2023 11:37 AM EDT) Pathologist [facility] Troponin-T, High Sensitivity 580(H) <=14 ng/L [facility] [...] value can be found in the [facility] Test Catalog Troponin - [facility] Test Catalog Reference: Fourth Holland Definition of Myocardial Infarction. Journal of the [place] [employer] 2018;72:3621-1482 Blood 10/31/2023 11:3 7 AM EDT 10/31/2023 11:50 AM EDT Narrative Resulting Agency Comment Spec In Lab Rosa Cornejo MD CHEMISTRY ORDERABLE S [facility] [place] [address] * ECHO COMPLETE (10/31/2023 8:52 AM EDT) Anatomical Region Laterality Modality Cardiac Other 10/31/2023 7:57 AM EDT Narrative 10/31/2023 9:45 AM EDT 1 [place] [address] ? Echocardiogram Report Name: ADIN SANTOS ? Study Date: 10/31/2023 07:57 AMBP: 106/76 mmHg ? Patient Location: [facility] 0[facility] A : 1940 ? Height: 163 cm ? Account: [id number] Age: 83 yrs ? Weight: 76 kg Gender: Female ?BSA: 1.8 m2 Ordering Physician: ROSA DEWEY Referring Physician: OMAIRA GIRON Performed By: HAFSA Carmichael Reason For Study: STEMI Interpreting Fellow: Raymond Warren. Exam Location: [facility]. Interpretation Summary -The left ventricle is [...] is no prior echocardiogram for comparison. Procedure Complete-36426. Satisfactory quality. There is sinus bradycardia. Left [...] Note Edgard Wang MD - 10/31/2023 [address] [place] [id number] Echocardiogram Report Name: TREY SANTOSMarco A Catherine Study Date: 407:57 AMBP: 106/76 mmHg Patient Location: [address] : 1940 Height: 163 cm Account: [id number] Age: 83 yrs Weight: 76 kg Gender: Female BSA: 1.8 m2 Ordering Physician: ROSA DEWEY Referring Physician: OMAIRA GIRON Performed By: HAFSA Carmichael Reason For Study: STEMI Interpreting Fellow: Raymond Warren. Exam Location: [facility]. Interpretation Summary -The left ventricle is [...] is no prior echocardiogram for comparison. Procedure Complete-88125. Satisfactory quality. There is sinus bradycardia. Left [...] value can be found in the [facility] Test Catalog Troponin - [facility] Test Catalog Reference: Fourth Holland Definition of Myocardial Infarction. Journal of the [place] [employer] 2018;72:4995-8537 Blood 10/31/2023 8:51 AM EDT 10/31/2023 9:12 AM EDT Narrative Resulting Agency Comment Spec In Lab Rosa Cornejo MD CHEMISTRY ORDERABLE S Performing Organization Address City/State/[facility] Co de Phone Number [facility] [place] [address] * CARDIAC CATHETERIZATION (10/31/2023 8:10 AM EDT) Anatomical Region Laterality Modality Other Narrative 11/07/2023 9:42 AM EDT ?[facility] ? Cardiac Catheterization/Intervention Report ? Patient Name: Adin Santos M. ? Procedure Date: 10/30/2023 ? A #: [id number] ? Primary Physician: Rosa Dewey I ? Case #: [id number] ? File Name: [id number] ? Catheterization Order Number: [id number] ? [facility] ? Final Report [place], [place] ? Patient Name: ? Adin M. Goguen ?ID#: ?[id number] ? : ?1940 ? Procedure Date: ? October 30, 2023 ? Case #: ? [id number] ? Room: ? 5 ? Case Physician: [...] was Emergent. The indication for ?the labor arbitrator hearing office visit is ACS less than or equal [...] ? A premounted 4.00 x 38 mm [place] Hitchcock (RADHA) was deployed ? with a maximum [...] administered prior to arrival in the labor arbitrator hearing office. ?Recommended anti-platelet/anti-thrombotic regimen: ?Continue aspirin 81 mg daily for 12 months then stop. ?Continue clopidogrel 75 mg daily for indefinitely. ?These recommendations are made at the time of the intervention. Patient ?and provider preferences or a changing clinical situation may require ?modification of this regimen. Consult [facility] Interventional Cardiology for ?questions. ? Conclusions: ?* [...] was present for the entire procedure. ?Dr. oRsa Dewey M.D. was present during the moderate [...] Procedure Note Rosa Dewey MD - 12/05/2023 [facility] Cardiac Catheterization/Intervention Report Patient Name: Adin Santos Procedure Date: 10/30/2023 A #: [id number] Primary Physician: Rosa Dewey I Case #: [id number] File Name: [id number] Catheterization Order Number: [id number] [facility] FinalReport [place], [place] Patient Name: Adin Santos ID#:[id number] :1940 Procedure Date: October 30, 2023 Case [...] procedure was Emergent. Theindication for the labor arbitrator hearing office visit is ACS less than or equal [...] A premounted 4.00 x 38 mm Andrea Hitchcock (RADHA) wasdeployed with a maximum inflation pressure [...] administered prior to arrival in the labor arbitrator hearing office. Recommended anti-platelet/anti-thrombotic regimen: Continue aspirin 81 mg daily for 12 months then stop. Continue clopidogrel 75 mg daily for indefinitely. These recommendations are made at the time of the intervention.Patient and provider preferences or a changing clinical situation mayrequire modification of this regimen. Consult [facility] Interventional Cardiologyfor questions. Conclusions: * Two vessel [...] * (ABNORMAL) Troponin (10/31/2023 4:21 AM EDT) [facility] Troponin-T, High Sensitivity 457(H) <=14 [...] value can be found in the [facility] Test Catalog Troponin - [facility] Test Catalog Reference: Fourth Holland Definition of Myocardial Infarction. Journal of the [place] [employer] 2018;72:5695-7656 Blood 10/31/2023 4:21 AM EDT 10/31/2023 4:30 AM EDT Narrative Resulting Agency Comment Spec In Lab Rosa Cornejo MD CHEMISTRY ORDERABLE S Performing Organization Address City/State/[facility] Co de Phone Number [facility] [place] [address] * (ABNORMAL) Differential, Automated (10/31/2023 3:05 AM EDT) Neutrophil % 71.7 % [facility] Neutrophil Absolute 8.21(H) 1.70 - 6.10 x10(3)/mc L [facility] Lymph % 16.9 % [facility] Lymphocytes Abs 1.9 0.9 - 3.2 x10(3)/mc L [facility] Monocyte % 9.4 % [facility] Monocyte Abs 1.1(H) 0.3 - 0.9 x10(3)/mc L [facility] Eos % 1.3 % [facility] Eosinophils Abs 0.2 0.0 - 0.4 x10(3)/mc L [facility] Basophil % 0.4 % [facility] Baso Absolute 0.0 0.0 - [...] MD HEMATOLOGY ORDERABLE S Performing Organization Address City/State/[facility] Co de Phone Number [facility] [place] [address] * (ABNORMAL) Hemogram (10/31/2023 3:05 AM EDT) White Blood Cell 11.5(H) 4.0 - 9.5 x10(3)/ L [facility] Red Blood Cell 3.75(L) 4.00 - 5.21 x10(6)/ L [facility] Hemoglobin 12.6 11.7 - 15.5 [...] Standard Deviation 53.4(H) 37.0 - 46.0 fL [facility] RDW coefficient of variation 14.6(H) 11.5 - 14.1 % [facility] Mean Platelet Volume 11.1 7.6 - 12.9 fL [facility] NRBC% auto 0.0 % [facility] NRBC Absolute 0.000 0.000 - 0.000 x10(3)/mc L [facility] Blood 10/31/2023 3:05 AM EDT 10/31/2023 3:13 AM EDT Narrative Resulting Agency Comment Spec In Lab Qamar Gallardo MD HEMATOLOGY ORDERABLE S Performing Organization Address [facility] Co de Phone Number [facility] [place] [address] * (ABNORMAL) APTT (10/31/2023 3:05 AM EDT) [...] MD HEMATOLOGY ORDERABL ES Performing Organization Address [facility] Co de Phone Number [facility] [place] [address] * (ABNORMAL) Prothrombin Time (10/31/2023 3:05 AM [...] Lab Rosa Cornejo MD HEMATOLOGY ORDERABL ES [facility] [place] [address] * (ABNORMAL) Differential, Automated (10/31/2023 1:37 AM EDT) Neutrophil % 71.1 % [facility] Neutrophil Absolute 7.53(H) 1.70 - 6.10 x10(3)/mc L [facility] Lymph % 18.0 % [facility] Lymphocytes Abs 1.9 0.9 - 3.2 x10(3)/mc L [facility] Monocyte % 8.7 % [facility] Monocyte Abs 0.9 0.3 - 0.9 x10(3)/mc L [facility] Eos % 1.6 % [facility] Eosinophils Abs 0.2 0.0 - 0.4 x10(3)/mc L [facility] Basophil % 0.4 % [facility] Baso Absolute 0.0 0.0 - [...] ORDERABLE S [facility] [place] [address] * (ABNORMAL) Hemogram (10/31/2023 1:37 AM EDT) [...] Platelet 204 145 - 357 x10(3)/mc L [facility] RDW Standard Deviation 54.3(H) 37.0 - 46.0 fL [facility] RDW coefficient of variation 14.6(H) 11.5 - 14.1 % [facility] Mean Platelet Volume 11.1 7.6 - 12.9 fL [facility] NRBC% auto 0.0 % [facility] NRBC Absolute 0.000 0.000 - 0.000 x10(3)/mc L [facility] Blood 10/31/2023 1:37 AM EDT 10/31/2023 1:46 AM EDT Narrative Resulting Agency Comment Spec In Lab Qamar Gallardo MD HEMATOLOGY ORDERABLE S [facility] [place] [address] * Phosphorus (10/31/2023 1:37 AM EDT) [facility] Phosphorus 3.2 2.5 - 4.5 mg/dL [facility] Blood 10/31/2023 1:37 AM EDT 10/31/2023 1:46 AM EDT Narrative Resulting Agency Comment Spec In Lab Rosa Cornejo MD CHEMISTRY ORDERABLE S Performing Organization Address City/[facility]/ZIP Co de Phone Number [facility] [place] [address] * Magnesium (10/31/2023 1:37 AM EDT) [facility] Magnesium 0.83 0.69 - 1.07 mmol/L [facility] Blood 10/31/2023 1:37 AM EDT 10/31/2023 1:46 AM EDT Narrative Resulting Agency Comment Spec In Lab Rosa Cornejo MD CHEMISTRY ORDERABLE S Performing Organization Address City/[facility]/ZIP Co de Phone Number [facility] [place] [address] * Basic Metabolic Panel (non-fasting) (10/31/2023 1:37 AM EDT) [facility] Glucose 114 65 - 199 [...] ORDERABLE S [facility] [place] [address] * (ABNORMAL) Troponin (10/31/2023 1:37 AM EDT) [...] value can be found in the [facility] Test Catalog Troponin - [facility] Test Catalog Reference: Fourth Holland Definition of Myocardial Infarction. Journal of the [place] College [employer] 2018;72:4814-4078 Blood 10/31/2023 1:37 AM EDT 10/31/2023 1:46 AM EDT Narrative Resulting Agency Comment Spec In Lab Rosa Cornejo MD CHEMISTRY ORDERABLE S Performing Organization Address City/State/[facility] [place] [address] * EKG 12 Lead (10/31/2023 1:20 AM EDT) Ventricular rate 52 BPM MUSE SYSTEM Atrial Rate 52 BPM MUSE SYSTEM P-R Interval 224 ms MUSE SYSTEM QRS Duration 108 ms MUSE SYSTEM Q-T Interval 544 ms MUSE SYSTEM QTC Calculated (Bezet) 505 ms MUSE SYSTEM Calculated P Tenaha 90 degrees MUSE SYSTEM Calculated R Tenaha -57 degrees MUSE SYSTEM Calculated T Tenaha -63 degrees MUSE SYSTEM INTERPRETATION Sinus bradycardia [...] Cornejo MD ECG ORDERABLES Performing Organization Address [facility] de Phone Number MUSE SYSTEM * EKG 12 Lead (10/30/2023 10:40 PM EDT) Ventricular rate 55 BPM MUSE SYSTEM Atrial Rate 55 BPM MUSE SYSTEM P-R Interval 232 ms MUSE SYSTEM QRS Duration 102 ms MUSE SYSTEM Q-T Interval 520 ms MUSE SYSTEM QTC Calculated (Bezet) 497 ms MUSE SYSTEM Calculated P Tenaha 75 degrees MUSE SYSTEM Calculated R Tenaha -53 degrees MUSE SYSTEM Calculated T Tenaha -57 degrees MUSE SYSTEM INTERPRETATION Sinus bradycardia with 1st degree A-V block Left anterior fascicular block Moderate voltage criteria for LVH, may be normal variant ( R in aVL , Burton product ) T wave abnormality, consider inferior ischemia T wave abnormality, consider anterolateral ischemia Prolonged QT Abnormal ECG When compared with ECG of 30-OCT-2023 20:21, Incomplete right bundle branch block is no longer Present Confirmed by Charles COFFMAN, Butch ([id number]) on 11/01/2023 8:58:01 PM MUSE SYSTEM 10/30/2023 10:4 0 PM EDT 11/01/2023 8:58 PM EDT Rosa Cornejo MD ECG ORDERABLES Performing Organization Address [facility] Phone Number MUSE SYSTEM * XR Chest One View (10/30/2023 10:10 PM EDT) WORKSTATION ID [id number] RAD Anatomical Region Laterality Modality Chest N/A Digital Radiogra phy Impressions 10/30/2023 10:32 PM EDT 1. ??Examination limited by low lung volumes. 2. ??Findings suggesting pulmonary vascular congestion with possible mild interstitial edema. 3. ??Known ascending aortic aneurysm, as seen on recent CT. 4. ??Nonspecific widening mediastinum. This can be secondary to magnification from portable technique and low lung volumes. Findings similar to test conductor radiograph from CT 10/30/2023. Thank you for letting us participate in the care of this patient. ??If you are a health care provider and have any questions regarding this report, please contact the number below. ??For patients who have questions please contact the health manager respiratory care that requested your imaging first. ? Electronically signed by: Wilson Mccartney MD, [facility] ([phone]), at 10/30/2023 10:32 PM Narrative 10/30/2023 10:32 [...] demonstrates no acute abnormality. Procedure Note Wilson Mcacrtney MD - 10/30/2023 EXAMINATION: XR CHEST ONE [...] and low lung volumes. Findings similar to test conductor radiograph from CT 10/30/2023. Thank you for letting us participate in the care of this patient. If youare a health care provider and have any questions regarding this report,please contact the number below. For patients who have questions please contactthe health manager respiratory care that requested your imaging first. Rosa Cornejo MD IMG DX ORDERABLES * Green Tube HOLD (10/30/2023 10:05 PM EDT) [facility] Green Hold Sample in lab. [facility] Blood Venous Draw / Unknown 10/30/2023 10:05 PM EDT 10/30/2023 10:13 PM EDT Qamar Gallardo MD CHEMISTRY ORDERABLES [facility] [place] [address] * (ABNORMAL) Differential, Automated (10/30/2023 10:05 PM EDT) [facility] Neutrophil % 76.6 % [facility] Neutrophil Absolute 6.94(H) 1.70 - 6.10 x10(3)/mc L [facility] Lymph % 15.4 % [facility] Lymphocytes Abs 1.4 0.9 - 3.2 x10(3)/mc L [facility] Monocyte % 6.1 % [facility] Monocyte Abs 0.6 0.3 - 0.9 x10(3)/mc L [facility] Eos % 1.1 % [facility] Eosinophils Abs 0.1 0.0 - 0.4 x10(3)/ L [facility] Basophil % 0.6 % [facility] Baso Absolute 0.0 0.0 - [...] ORDERABLE S [facility] [place] [address] * (ABNORMAL) Hemogram (10/30/2023 10:05 PM EDT) White Blood Cell 9.0 4.0 - 9.5 x10(3)/ L [facility] [...] Platelet 211 145 - 357 x10(3)/ L [facility] RDW Standard Deviation 53.6(H) 37.0 - 46.0 fL [facility] RDW coefficient of variation 14.6(H) 11.5 - 14.1 % [facility] Mean Platelet Volume 11.1 7.6 - 12.9 fL [facility] NRBC% auto 0.0 % [facility] NRBC Absolute 0.000 0.000 - 0.000 x10(3)/mc L [facility] Blood 10/30/2023 10:0 5 PM EDT 10/30/2023 10:12 PM EDT Narrative Resulting Agency Comment Spec In Lab Qamar Gallardo MD HEMATOLOGY ORDERABLE S Performing Organization Address City/[facility]/ZIP Co de Phone Number [facility] [place] [address] * Hemoglobin A1c (10/30/2023 10:05 PM EDT) [...] Mellitus, Diabetes Care 2013; 36: Suppl. 1, L91-53 Estimated Average Glucose See note mg/dL [facility] Comment: Estimated Average Glucose not appropriate for patients over 70 years of age. Blood 10/30/2023 10:0 5 PM EDT 10/30/2023 10:12 PM EDT Narrative Resulting Agency Comment Spec In Lab Rosa Cornejo MD CHEMISTRY ORDERABLE S Performing Organization Address City/[facility]/ZIP Co de Phone Number [facility] [place] [address] * Lipid Panel (Reflex Direct LDL) (10/30/2023 10:05 PM EDT) Cholesterol, Total 218 mg/dL [facility] Comment: Desirable: ? <200 mg/dL Borderline High: 200-239 mg/dL Higher: ?>iv=111 mg/dL Triglyceride 46 mg/dL [facility] Comment: Normal: ?<150 mg/dL Borderline High: 150-199 mg/dL High: ?200-499 mg/dL Very High: ? >sv=864 mg/dL HDL Cholesterol 64 mg/dL [facility] Comment: Females: High Risk: <50 mg/dL Males: High Risk: <40 mg/dL LDL Cholesterol 145 mg/dL [facility] Comment: Desirable: ? <100 mg/dL Above Desirable: 100-129 mg/dL Borderline High: 130-159 mg/dL High: ?160-189 mg/dL Very High: ? >bk=739 mg/dL Lipid Interpretation See Note [facility] [...] ACC/AHA Guidelines (most recently Feliciano et al. [facility] 03/23/22): For individuals with atherosclerotic cardiovascular disease (ASCVD)or LDL >xv=360 mg/dL, use a high-intensity statin (40-80 mg [...] ORDERABLE S [facility] [place] [address] * TSH Maddock (10/30/2023 10:05 PM EDT) Thyroid Stimulating Hormone 3.35 0.27 - 4.20 mcIU/mL [facility] Comment: Reference Interval (mcIU/mL): Females: ??First Trimester: 0.23-3.88 ??Second Trimester: 0.22-3.90 ??Third Trimester: 0.44-4.66 Blood 10/30/2023 10:0 5 PM EDT 10/30/2023 10:12 PM EDT Narrative Resulting Agency Comment Spec In Lab Rosa Cornejo MD CHEMISTRY ORDERABLE S [facility] [place] [address] * pro-Brain Natriuretic Peptide (10/30/2023 10:05 PM EDT) NT-proBNP 375 <=449 pg/mL [facility] Blood 10/30/2023 10:0 5 PM EDT 10/30/2023 10:12 PM EDT Narrative Resulting Agency Comment Spec In Lab Rosa Cornejo MD CHEMISTRY ORDERABLE S Performing Organization Address [facility]/ZIP Co de Phone Number [facility] [place] [address] * (ABNORMAL) Comprehensive metabolic panel (non-fasting) (10/30/2023 10:05 PM EDT) Pathologist [facility] Glucose 121 65 - 199 mg/dL [facility] [...] MD CHEMISTRY ORDERABLE S Performing Organization Address City/[facility]/ZIP Co de Phone Number [facility] [place] [address] * Phosphorus (10/30/2023 10:05 PM EDT) Phosphorus 3.3 2.5 - 4.5 mg/dL [facility] Blood 10/30/2023 10:0 5 PM EDT 10/30/2023 10:12 PM EDT Narrative Resulting Agency Comment Spec In Lab Rosa Cornejo MD CHEMISTRY ORDERABLE S Performing Organization Address City/[facility]/ZIP Co de Phone Number [facility] [place] [address] * Magnesium (10/30/2023 10:05 PM EDT) Magnesium 0.86 0.69 - 1.07 mmol/L [facility] Blood 10/30/2023 10:0 5 PM EDT 10/30/2023 10:12 PM EDT Narrative Resulting Agency Comment Spec In Lab Rosa Cornejo MD CHEMISTRY ORDERABLE S [facility] [place] [address] * (ABNORMAL) Troponin (10/30/2023 10:05 PM EDT) Troponin-T, High Sensitivity 214(H) <=14 ng/L [facility] [...] value can be found in the [facility] Test Catalog Troponin - [facility] Test Catalog Reference: Fourth Holland Definition of Myocardial Infarction. Journal of the [place] College [employer] Cardiology 2018;72:3883-0704 Blood 10/30/2023 10:0 5 PM EDT 10/30/2023 10:12 PM EDT Narrative Resulting Agency Comment Spec In Lab Rosa Cornejo MD CHEMISTRY ORDERABLE S [facility] [place] [address] * EKG 12 Lead (10/30/2023 8:21 PM EDT) Ventricular rate 49 BPM MUSE SYSTEM Atrial Rate 49 BPM MUSE SYSTEM P-R Interval 230 ms MUSE SYSTEM QRS Duration 96 ms MUSE SYSTEM Q-T Interval 526 ms MUSE SYSTEM QTC Calculated (Bezet) 475 ms MUSE SYSTEM Calculated P Tenaha 98 degrees MUSE SYSTEM Calculated R Tenaha -48 degrees MUSE SYSTEM Calculated T Tenaha -51 degrees MUSE SYSTEM INTERPRETATION Sinus bradycardia [...] Cornejo MD ECG ORDERABLES Performing Organization Address City/[facility] Co de Phone Number MUSE SYSTEM [...] Intra-Operative (Intra-Procedure), Routine 1346 (Given - Provider: Jsaon Jimenes RN)1455 (Given - Provider: Jean Oliveira [...] documented as of this encounter Care Teams Airbrush Artist Photography Relationship Specialty Start Date End Date Rosie Mathews MD [address] [place] [id number] PCP - General Family Medicine 11/25/17 11/23/23 documented as of this encounter
--- OUTSIDE RECORDS SUMMARY | 2024-02-13 10:15 | XMS_ITS | Encounter Summary ---
Author Organization [facility] Address [facility] [place] [address] Care Team Providers Care Business Division Chair Name Role Phone Rosie Mathews MD Primary Care Provider [phone] Reason for Visit * Consultation (Routine) - Closed Specialty Diagnoses / Procedures Referred By John hunt Referred To Contact Audiology Diagnoses Hearing assessment and treatment options Karson John MD [address] [place] [address] [facility] [address] [place] [phone] Referral ID Status Reason Start Date Expiration Date V isits Requested Visits Authorized [id number] Closed Consult, Test & Treat Connection [facility] 11/22/2017 11/22/2018 1 1 Encounter Details Date Type Department Care Team (Latest Contact Info) Description 11/30/2017 3:15 PM EDT Office Visit Audiology at [address] [address] Georgette Onofre AUD [facility] [place] [address] Sensorineural hearing loss, bilateral; Bilateral [...] protection for the first 10-15 years. Ms. Goodirch obtained binaural [facility] in-the-ear hearingaids nine years ago in [place], [place]. She stated she continues to experience [...] tone audiogram. SNR loss is the increased ybwkta-oe-ndsjo ratio required by an individual to understand [...] not hesitate to contact this Section at [phone] if there are questions regarding this report or its recommendations. Romeo Becker [place] [id number] Attachment: audiogram CC: MD Karson Loo MD Laurmarco a Catherine Edvinjonatanjosue [facility] [address] [place] [phone] documented in this encounter Plan of Treatment Upcoming Encounters Date Type Department Care Team (Late st Contact Info) Description 03/29/2024 11:20 AM EDT Office Visit Cardiology at [address] [place] [address] Izaiah Meyer MD [facility] [place] [address] documented as of this encounter Procedures Procedure [...] tinnitus documented in this encounter Care Teams Business Division Chair Relationship Specialty Start Date End Date Rosie Mathews MD [address] [place] [phone] PCP - General Family Medicine 11/25/17 11/23/23 documented as of this encounter
--- OUTSIDE RECORDS SUMMARY | 2024-02-13 10:15 | XMS_ITS | Encounter Summary ---
Author Organization [facility] Address [facility] [place] [address] Care Team Providers Care Scarf And Anneal Operator Name Role Phone Rosie Mathews MD Primary Care Provider [phone] Encounter Details Date Type Department Care Team (Late st Contact Info) Description 10/30/2023 External Results Transfer Center [facility] [place] [address] Social History Tobacco Use Types Packs/Day Years Used Date Smoking Tobacco: Former Smokeless Tobacco: Never Alcohol Use Standard Drinks/Week Comments Not Currently 0 (1 standard drink = 0.6 oz pur e alcohol) [facility] Utilities Answer Date Recorded In the past 12 months has e [employer], gas, oil, or water [employer] threatened to shut off services in your [...] 11:20 AM EDT Office Visit Cardiology at [address] [address] Izaiah Meyer MD [facility] [place] [address] documented as of this encounter Procedures Procedure [...] on filedocumented in this encounter Care Teams Scarf And Anneal Operator Relationship Specialty Start Date End Date Rosie Mathews MD [address] [place] [address] PCP - General Family Medicine 11/25/17 11/23/23 documented as of this encounter
--- OUTSIDE RECORDS SUMMARY | 2024-02-13 10:15 | XMS_ITS | Encounter Summary ---
Author Organization [facility] Address [address] [place] [address] Care Team Providers Care Strain Technician Name Role Phone Kirsten Bateman MD Primary Care Provider [phone] Encounter Details Date Type Department Care Team (Late st Contact Info) Description 01/14/2010 Abstract Used for ABSTRACTING Data [phone] Kirsten Bateman MD [address] [place] [address] Social History Tobacco Use Types [...] OIL/COCONUT OIL (FATTY ACID BASE MISC) by [facility].(Non-Drug; Combo Route) route. EPA CYANOCOBALAMIN (VITAMIN B-12 ORAL) Take by mouth. ASCORBIC ACID (VITAMIN C ORAL) Take by mouth. VITAMIN E ACETATE (VITAMIN E ORAL) Take by mouth. ASPIRIN ORAL Take by mouth. AMITRIPTYLINE HCL (AMITRIPTYLINE ORAL) Take by mouth. ATENOLOL ORAL Take by mouth. SIMVASTATIN ORAL Take by mouth. added in this encounter Care Teams Strain Technician Relationship Specialty Start Date End Date Kirsten Bateman MD [address] [place] [phone] PCP - General 01/13/10 documented as of this encounter
--- OUTSIDE RECORDS SUMMARY | 2024-02-13 10:15 | XMS_ITS | Referral Summary ---
Author Organization [facility] Address [address] [place] [address] Care Team Providers Care Mortgage Accounting Clerk Name Role Phone Kirsten Bateman MD Primary Care Provider [phone] Allergies Active Allergy Reactions Criticality Noted Date [...] of Treatment Not on file Care Teams Mortgage Accounting Clerk Relationship Specialty Start Date End Date Kirsten Bateman MD [address] [place] [address] [facility] - General 01/13/10
--- OUTSIDE RECORDS SUMMARY | 2024-02-13 10:15 | XMS_ITS | Encounter Summary ---
Author Organization [facility] Address [address] [place] [address] Care Team Providers Care Pearl Fisherman Name Role Phone Kirsten Bateman MD Primary Care Provider [phone] Encounter Details Date Type Department Care Team (Late st Contact Info) Description 01/27/2021 Lab Requisition [facility] Pathology & Laboratory Medicine - [facility] [address] [place] [address] Outr Resulting Lab, Provider Social History Tobacco [...] Outr Resulting Lab MICROBIOLOGY - GENERAL ORDERABLES [facility] [address] [place] [address] * COVID-19 TESTING (01/26/2021 16:45 EDT) COVID-19 rt-PCR Result Negative Negative 01/28/2021 13:31 EDT [facility] Comment: This test has [...] developed and its performance characteristics determined by [facility]. It has not been cleared or approved [...] testing. This test is based on the [facility] COVID-19 Emergency Use Authorization (EUA) assay, with minor modification as defined by the FDA Performed on the Offerialo 7 Pro RT-PCR System. Performing Lab [facility] Lab 01/28/2021 13:31 EDT [facility] Swab 01/26/2021 16:4 5 EDT 01/27/2021 15:46 EDT Provider Outr Resulting Lab MICROBIOLOGY - GENERAL ORDERABLES [facility] [address] [place] [address] documented in this encounter Visit Diagnoses Not on filedocumented in this encounter Care Teams Pearl Fisherman Relationship Specialty Start Date End Date Kirsten Bateman MD [address] [place] [address] PCP - General 01/13/10 documented as of this encounter
--- OUTSIDE RECORDS SUMMARY | 2024-02-13 10:15 | XMS_ITS | Encounter Summary ---
Author Organization Health system Address [address] [place] [address] Care Team Providers Care Program Manufacturing Leader Name Role Phone Kirsten Bateman MD Primary Care Provider [phone] Reason for Visit * Reason Comments Hearing Loss tinnitus Encounter Details Date Type Department Care Team (Latest Contact Info) Description 01/15/2010 10:10 EDT Office Visit [address] [address] Unknown, ProviderMD Ray Farooq MD [address] [place] [address] [address] Sensorineural hearing loss, bilateral; Subjective [...] Ray Farooq MD - 01/28/2010 1108 EDT [facility] PRO[facility]ESS/FOLLOWUP NOTE - 01/15/2010 CHIEF COMPLAINT: [...] Farooq MD - Ray Farooq MD - [facility] Job ID: SM Doc ID: [id number] Ext Doc ID: [id number] cc: Kirsten Bateman MD * Ray Farooq [...] tinnitus documented in this encounter Care Teams Program Manufacturing Leader Relationship Specialty Start Date End Date Kirsten Bateman MD [address] [place] [address] PCP - General 01/13/10 documented as of this encounter
--- OUTSIDE RECORDS SUMMARY | 2024-02-13 10:15 | XMS_ITS | Clinical Summary ---
Author Organization [facility] Address [address] [facility] [place] [address] Care Team Providers Care Teacher Ballet Name Role Phone Kirsten Bateman MD Primary Care Provider [phone] Allergies Active Allergy Reactions Criticality Noted Date [...] COVID-19 Vaccine (2022-24 season) 2023 Care Teams Teacher Ballet Relationship Specialty Start Date End Date Kirsten Bateman MD [address] [place] [phone] PCP - General 01/13/10
--- OUTSIDE RECORDS SUMMARY | 2024-02-13 10:15 | XMS_ITS | Encounter Summary ---
Author Organization [facility] Address [address] [place] [address] Care Team Providers Care Master Ocean Yacht Name Role Phone Unavailable Primary Care Provider Unavailabl e Encounter Details Date Type Department Care Team (Late st Contact Info) Description 01/10/2008 Before PRISM Converted Visit (Maple) [facility] - Maple conversion [address] [place] [address] Ray Farooq MD [address] [place] [phone] Social History Tobacco Use Types Packs/Day Years Used Date Smoking Tobacco: Never Assessed Sex and Gender Information Value Date Recorded Sex Assigned at Not on file Gender Identity Not on file Sexual Orientation Not on file documented as of this encounter Consult Notes * Ray Farooq MD - 03/21/2009 1411 EDT [facility] - 01/10/2008 Kirsten Bateman MD [facility] [address] [place] [address] Bateman: Chief complaint: Hearing loss. History of present illness: Tmcwn-shrjz-gnrf-old female with along history of bilateral hearing [...] is a nonsmoker, nondrinker. She lives in [place]. Review of systems is significant for allergies, [...] Tosin Farooq MD - [facility] Job ID: [id number] Doc ID: [id number] cc: Kirsten Bateman MD cc: Kirsten Bateman MD documented in this encounter Plan of Treatment Not on file documented as of this encounter Visit Diagnoses Not on filedocumented in this encounter
--- OUTSIDE RECORDS SUMMARY | 2024-02-13 10:15 | XMS_ITS | Encounter Summary ---
Author Organization [facility] Address [facility] [place] [address] Care Team Providers Care It Consultant Name Role Phone Rosie Mathews MD Primary Care Provider [phone] Encounter Details Date Type Department Care Team (Late st Contact Info) Description 10/30/2023 [place] [address] Jose Lee MD [facility] [place] [address] Social History Tobacco Use Types Packs/Day Years Used Date Smoking Tobacco: Former Smokeless Tobacco: Never Alcohol Use Standard Drinks/Week Comments Not Currently 0 (1 standard drink = 0.6 oz pur e alcohol) [facility] Utilities Answer Date Recorded In the past 12 months has th e [place], gas, oil, or water [employer] threatened to shut off services in your [...] AM EDT Office Visit Cardiology at [address] [address] Izaiah Meyer MD [facility] [place] [address] documented as of this encounter Visit Diagnoses Not on filedocumented in this encounter Additional Health Concerns Infection Onset Date Last Indicated Resolved Time Rule Out Respiratory 11/02/2023 11/02/2023 024 12:22 PM EDT Rule Out COVID-19 11/02/2023 11/02/2023 11/02/2023 12:22 PM EDT documented as of this encounter Care Teams It Consultant Relationship Specialty Start Date End Date Rosie Mathews MD [address] [place] [address] PCP - General Family Medicine 11/25/17 11/23/23 documented as of this encounter
--- OUTSIDE RECORDS SUMMARY | 2024-02-13 10:15 | XMS_ITS | Encounter Summary ---
Author Organization [facility] Address [facility] [place] [address] Care Team Providers Care Assembler Dc Field Ring Name Role Phone Rosie Mathews MD Primary Care Provider [phone] Encounter Details Date Type Department Care Team (Late st Contact Info) Description 10/30/2023 [place] [address] Jose Lee MD [facility] [place] [address] Social History Tobacco Use Types Packs/Day Years [...] Date: 10/30/2023 Referring Provider: Bree Patient Location: [facility] HPI: 83 yoF w/ PMHx of [...] in the patient condition. Jose Lee MD [employer] Supervisor documented in this encounter Plan of Treatment Upcoming Encounters Date Type Department Care Team (Late st Contact Info) Description 03/29/2024 11:20 AM EDT Office Visit Cardiology at [address] [place] [address] Izaiah Meyer MD [facility] [place] [address] documented as of this encounter Visit Diagnoses Not on filedocumented in this encounter Care Teams Assembler Dc Field Ring Relationship Specialty Start Date End Date Rosie Mathews MD [address] [place] [address] PCP - General Family Medicine 11/25/17 11/23/23 documented as of this encounter
--- OUTSIDE RECORDS SUMMARY | 2024-02-15 10:32 | XMS_ITS | Encounter Summary ---
Author Organization [facility] Address [facility] [place] [address] Care Team Providers Care Finishing Operator Name Role Phone Rosie Mathews MD Primary Care Provider [phone] Reason for Visit * Reason Onset Date Comments Referral 11/03/2023 Coronary Artery Disease 11/03/2023 Encounter Details Date Type Department Care Team (Late st Contact Info) Description 11/03/2023 Telephone Cardiology at [address] [address] Andressa Machado, judicial registrar; Coronary Artery Disease Social History Tobacco Use Types Packs/Day Years Used Date Smoking Tobacco: Former Smokeless Tobacco: Never Alcohol Use Standard Drinks/Week Comments Not Currently 0 (1 standard drink = 0.6 oz pur e alcohol) [facility] Utilities Answer Date Recorded In the past 12 months has e [employer] gas, oil, or water [employer] threatened to shut off services in your [...] were not included. [facility] Cardiology Clinic [address] [place] [id number] Lyla was referred to this Cardiology clinic in [place] for post cardiac cath 10/31 for STEMI follow up as part of her [place] plan [place] [facility] documented in this encounter Plan of Treatment Upcoming Encounters Date Type Department Care Team (Late st Contact Info) Description 03/29/2024 11:20 AM EDT Office Visit Cardiology at [address] [place] [address] Izaiah Meyer MD [facility] [place] [address] documented as of this encounter Visit Diagnoses Not on filedocumented in this encounter Care Teams Finishing Operator Relationship Specialty Start Date End Date Rosie Mathews MD [address] [place] [address] PCP - General Family Medicine 11/25/17 11/23/23 documented as of this encounter
--- OUTSIDE RECORDS SUMMARY | 2024-02-15 10:32 | XMS_ITS | Encounter Summary ---
Author Organization [facility] Address [facility] [place] [address] Care Team Providers Care Locksmith Name Role Phone Masood Pierson MD Primary Care Provider [phone] Reason for Visit * Reason Comments Establish Care Coronary Artery Disease Encounter Details Date Type Department Care Team (Latest Contact Info) Description 11/24/2023 10:40 AM EDT Office Visit Cardiology at [address] [place] [address] Izaiah Meyer MD [facility] [place] [address] ASCVD (arteriosclerotic cardiovascular disease); Cardiomyopathy, ischemic; Ascending aorta dilatation; Hyperpiesia Social History Tobacco Use Types Packs/Day Years Used Date Smoking Tobacco: Former Smokeless Tobacco: Never Alcohol Use Standard Drinks/Week Comments Not Currently 0 (1 standard drink = 0.6 oz pur e alcohol) [facility] Utilities Answer Date Recorded In the [...] in a fci (including now)? No 11/01/2023 DH IPV Inpatient [...] Prox 60 Mid 80 3.5 x 15 [place] 3.5 x 15 Andrea RCA Mid AoCTO. [...] HPI: 83 f presents to [facility] cardiovascular care. She has a [...] rehab. [facility] SBP very well controlled at home [...] 11:20 AM EDT Office Visit Cardiology at [address] [place] [phone] Izaiah Meyer MD [facility] [place] [address] documented as of this encounter Visit Diagnoses Diagnosis ASCVD (arteriosclerotic cardiovascular disease) Unspecified cardiovascular disease Cardiomyopathy, ischemic Other specified forms of chronic ischemic heart disease Ascending aorta dilatation Thoracic aortic ectasia Hyperpiesia Unspecified essential hypertension documented in this encounter Care Teams Locksmith Relationship Specialty Start Date End Date Masood Pierson MD [address] [place] [address] PCP - General Family Medicine 11/24/23 documented as of this encounter
--- OUTSIDE RECORDS SUMMARY | 2024-02-15 10:32 | XMS_ITS | Encounter Summary ---
Author Organization [facility] Address [facility] [place] [address] Care Team Providers Care Forest Fire Management Officer Name Role Phone Rosie Mathews MD Primary Care Provider [phone] Encounter Details Date Type Department Care Team (Late st Contact Info) Description 11/18/2023 External Results Administration [place] [address] Social History Tobacco Use Types Packs/Day Years [...] place to sleep or slept in a jail (including now)? No 11/01/2023 DH IPV Inpatient [...] AM EDT Office Visit Cardiology at [address] [phone] Izaiah Meyer MD [facility] [place] [address] documented as of this encounter Procedures Procedure Name Priority Date/Time Associated Diagnosis Comments ECG SCAN Routine 11/18/2023 4:50 PM EDT documented in this encounter Results * Scan Doc: ECG (11/18/2023 4:50 PM EDT) Historical Provider MEDIA MGR SCAN EX T ORDR/RSLT documented in this encounter Visit Diagnoses Not on filedocumented in this encounter Care Teams Forest Fire Management Officer Relationship Specialty Start Date End Date Rosie Mathews MD [address] [place] [address] PCP - General Family Medicine 11/25/17 11/23/23 documented as of this encounter
--- OUTSIDE RECORDS SUMMARY | 2024-02-15 10:32 | XMS_ITS | Encounter Summary ---
Author Organization [facility] Address [facility] [place] [address] Care Team Providers Care Household Personal Assistant Name Role Phone Masood Pierson MD Primary Care Provider [phone] Encounter Details Date Type Department Care Team (Late st Contact Info) Description 12/16/2023 Telephone Cardiology at [address] [place] [address] Izaiah Meyer MD [facility] [place] [address] Social History Tobacco Use Types Packs/Day Years Used Date Smoking Tobacco: Former Smokeless Tobacco: Never Alcohol Use Standard Drinks/Week Comments Not Currently 0 (1 standard drink = 0.6 oz pur e alcohol) [facility] Utilities Answer Date Recorded In the past 12 months has [employer] electric, gas, oil, or water [email or web address] threatened to shut off services in your [...] RN - 12/16/2023 11:25 AM EDT Denise, [facility] Cardiac refuse laborer, called to report that at today's session [...] AM EDT Office Visit Cardiology at [address] [place] [address] Izaiah Meyer MD [facility] [place] [address] documented as of this encounter Visit Diagnoses Not on filedocumented in this encounter Care Teams Household Personal Assistant Relationship Specialty Start Date End Date Masood Pierson MD [address] [place] [address] PCP - General Family Medicine 11/24/23 documented as of this encounter
--- OUTSIDE RECORDS SUMMARY | 2024-02-15 10:32 | XMS_ITS | Clinical Summary ---
Author Organization [facility] Address [facility] [place] [address] Care Team Providers Care Electrical Contacts Adjuster Name Role Phone Masood Pierson MD Primary Care Provider [phone] Allergies Active Allergy Reactions Criticality Noted Date [...] Prox 60 Mid 80 3.5 x 15 [place] 3.5 x 15 [place] RCA Mid AoCTO. Collats from Cx 4.0 x 38 [place] NB: RCA initially intervened; Cx 2 days [...] Care Team Description 12/16/2023 Telephone Cardiology at [address] [address] Izaiah Meyer MD 11/24/2023 10:40 AM EDT Office Visit Cardiology at [address] [address] Izaiah Meyer MD ASCVD (arteriosclerotic cardiovascular disease); Cardiomyopathy, ischemic; Ascending aorta dilatation; Hyperpiesia 11/24/2023 Travel 11/18/2023 Telephone Cardiology at [address] [address] Cheryl Guzman MD 11/18/2023 [place] [address] from Last 3 Months Social History Tobacco Use Types Packs/Day Years Used Date Smoking Tobacco: Former Smokeless Tobacco: Never Alcohol Use Standard Drinks/Week Comments Not Currently 0 (1 standard drink = 0.6 oz pur e alcohol) [facility] Utilities Answer Date Recorded In the past 12 months has th e [employer] [place], gas, oil, or water [employer] threatened to shut off services in your [...] AM EDT Office Visit Cardiology at [address] [place] [address] Izaiah Meyer MD [facility] [place] [address] Health Maintenance Due Date Last Done Comments [...] (Bezet) 444 ms MUSE SYSTEM Calculated P [place] 79 degrees MUSE SYSTEM Calculated R [place] -39 degrees MUSE SYSTEM Calculated T [place] -49 degrees MUSE SYSTEM INTERPRETATION Sinus bradycardia [...] Anterolateral leads Confirmed by MD Meyer Daniel ([id number]) on 12/10/2023 2:50:44 PM MUSE SYSTEM 11/24/2023 [...] Status decision made by: Patient Care Teams Electrical Contacts Adjuster Relationship Specialty Start Date End Date Masood Pierson MD [address] [place] [address] PCP - General Family Medicine 11/24/23
--- OUTSIDE RECORDS SUMMARY | 2024-02-15 10:32 | XMS_ITS | Encounter Summary ---
Author Organization [facility] Address [facility] [place] [address] Care Team Providers Care Yarn Man Name Role Phone Masood Pierson MD Primary Care Provider [phone] Encounter Details Date Type Department Care Team (Latest Contact Info) Description 11/24/2023 Travel Social History Tobacco Use Types Packs/Day Years Used Date Smoking Tobacco: Former Smokeless Tobacco: Never Alcohol Use Standard Drinks/Week Comments Not Currently 0 (1 standard drink = 0.6 oz pur e alcohol) [facility] Utilities Answer Date Recorded In [...] AM EDT Office Visit Cardiology at [address] [address] Izaiah Meyer MD [facility] [place] [address] documented as of this encounter Visit Diagnoses Not on filedocumented in this encounter Care Teams Yarn Man Relationship Specialty Start Date End Date Masood Pierson MD [address] [place] [address] PCP - General Family Medicine 11/24/23 documented as of this encounter
--- OUTSIDE RECORDS SUMMARY | 2024-02-15 10:32 | XMS_ITS | Encounter Summary ---
Author Organization [facility] Address [facility] [place] [address] Care Team Providers Care Business Analysis Professional Name Role Phone Rosie Mathews MD Primary Care Provider [phone] Encounter Details Date Type Department Care Team (Late st Contact Info) Description 11/18/2023 Telephone Cardiology at [address] [address] Cheryl Guzman MD [facility] [place] [address] Social History Tobacco Use Types Packs/Day Years Used Date Smoking Tobacco: Former Smokeless Tobacco: Never Alcohol Use Standard Drinks/Week Comments Not Currently 0 (1 standard drink = 0.6 oz pur e alcohol) [facility] Utilities Answer Date Recorded In the past 12 months has e electric, gas, oil, or water [employer] threatened to shut off services in your [...] in a custodial (including now)? No 11/01/2023 IPV Inpatient Questions [...] Provider: Radu Giron MD Patient Location: ED, [facility] Past Medical History: HTN HLD [place]STEMI [place] [place], status-post revasc) Presenting Symptoms per OSH: Lyla Goodrich is a 83 y.o. woman who presents to [facility] with an episode of chest pain. 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 Recommend admission for observation to assess for [...] AM EDT Office Visit Cardiology at [address] [phone] Izaiah Meyer MD [facility] [place] [address] documented as of this encounter Visit Diagnoses Not on filedocumented in this encounter Care Teams Business Analysis Professional Relationship Specialty Start Date End Date Rosie Mathews MD [address] [place] [address] PCP - General Family Medicine 11/25/17 11/23/23 documented as of this encounter
--- OUTSIDE RECORDS SUMMARY | 2024-02-15 10:33 | XMS_ITS | Encounter Summary ---
Author Organization [facility] [place] [address] Care Team Providers Care Wool Merchant Name Role Phone Rosie Mathews MD Primary Care Provider [phone] Encounter Details Date Type Department Care Team (Late st Contact Info) Description 10/30/2023 5:00 PM EDT Ancillary Procedure [place] [phone] Izaiah Meyer MD [facility] [place] [address] Social History Tobacco Use Types Packs/Day Years Used Date Smoking Tobacco: Former Smokeless Tobacco: Never Alcohol Use Standard Drinks/Week Comments Not Currently 0 (1 standard drink = 0.6 oz pur e alcohol) [facility] Inpatient Questions Answer Date Recorded Does Anyone [...] 11:20 AM EDT Office Visit Cardiology at [address] [place] [address] Izaiah Meyer MD [facility] [place] [address] documented as of this encounter Procedures Procedure Name Priority Date/Time Associated Diagnosis Comments FILM LIBRARY STORAGE ONLY CT CHEST Routine 10/30/2023 4:59 PM EDT documented in this encounter Results * Film Library- Storage Only CT Chest (10/30/2023 4:59 PM EDT) Narrative [facility] 10/30/2023 4:59 PM EDT This exam is auto-finalizing. It's purpose is for storage only. Izaiah Meyer MD IMG FILM LIBRARY ORD ERABLES Performing Organization Address City/State/[facility] Co de Phone Number [place], [place] documented in this encounter Visit Diagnoses Not on filedocumented in this encounter Care Teams Wool Merchant Relationship Specialty Start Date End Date Rosie Mathews MD [address] [place] [address] PCP - General Family Medicine 11/25/17 11/23/23 documented as of this encounter
--- OUTSIDE RECORDS SUMMARY | 2024-02-15 10:33 | XMS_ITS | Encounter Summary ---
Author Organization [facility] [place] [address] Care Team Providers Care Core Driller Name Role Phone Rosie Mathews MD Primary Care Provider [phone] Reason for Visit * Auth/Cert (Routine) Specialty Diagnoses / Procedures Referred By Contac t Referred To Contact Diagnoses Unstable angina Procedures [facility] Referral ID Status Reason Start Date Expiration Date Visits Re quested Visits Authorized [id number] 1 1 Encounter Details Date Type Department Care Team (Latest Contact Info) Description 10/30/2023 5:00 PM EDT - 10/30/2023 5:10 PM EDT Hospital [place] [phone] Rosa Menjivar MD [facility] [place] [address] Discharge Disposition: Home Social History Tobacco Use Types Packs/Day Years Used Date Smoking Tobacco: Former Smokeless Tobacco: Never Alcohol Use Standard Drinks/Week Comments Not Currently 0 (1 standard drink = 0.6 oz pur e alcohol) [facility] Inpatient Questions Answer Date Recorded Does Anyone [...] 11:20 AM EDT Office Visit Cardiology at [address] [place] [address] Izaiah Meyer MD [facility] [place] [address] documented as of this encounter Visit Diagnoses Not on filedocumented in this encounter Care Teams Core Driller Relationship Specialty Start Date End Date Rosie Mathews MD [address] [place] [address] PCP - General Family Medicine 11/25/17 11/23/23 documented as of this encounter
--- OUTSIDE RECORDS SUMMARY | 2024-02-15 10:33 | XMS_ITS | Encounter Summary ---
Author Organization [facility] Address [facility] [place] [address] Care Team Providers Care Talent Development Manager Name Role Phone Rosie Mathews MD Primary Care Provider Reason for Referral * Consultation (Routine) - Authorized Specialty Diagnoses / Procedures Referred By Contac t Referred To Contact Cardiology Diagnoses 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 Rosa Hugo MD [facility] [place] [address] Cardiac Rehab, [address] [place] [address] Referral ID Status Reason Start Date Expiration Date Visits Requested Visits Authorized [id number] Authorized Consult, Test & Treat Non PCP 11/03/2023 05/01/2024 36 36 * Home Health Care (Routine) - Authorized Specialty Diagnoses / Procedures Referred By Contac t Referred To Contact Diagnoses Unstable angina Rosa Hugo MD [facility] [place] [address] Referral ID Status Reason Start Date Expiration Date Visits Requested Visits Authorized [id number] Authorized Consult, Test & Treat 11/03/2023 05/01/2024 999 999 Reason for Visit * Auth/Cert (Routine) Specialty Diagnoses / Procedures Referred By John hunt Referred To Contact Diagnoses Unstable angina Chest pain NSTEMI Procedures CARDIAC CATHETERIZATION Rosa Dewey MD [facility] [place] [address] [facility] Referral ID Status Reason Start Date Expiration Date Visits Re quested Visits Authorized [id number] 1 1 Encounter Details Date Type Department Care Team (Latest Contact Info) Description 10/30/2023 5:11 PM EDT - 11/03/2023 5:13 PM EDT Hospital Encounter Heart and Vascular Unit Level 4 [place] [address] Rosa Dewey MD [facility] [place] [address] Jean Laboy MD [facility] [place] [address] Rosa Hugo MD [facility] [place] [address] 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; Tachycardia; Unstable angina Discharge Disposition: Home Social History Tobacco Use Types Packs/Day Years Used Date Smoking Tobacco: Former Smokeless Tobacco: Never Alcohol Use Standard Drinks/Week Comments Not Currently 0 (1 standard drink = 0.6 oz pur e alcohol) [facility] Utilities Answer Date Recorded In the past 12 months has e [employer], gas, oil, or water [employer] threatened to shut off services in your [...] for hypertension and hyperlipidemia who presented to [facility] as a transfer from [facility] as a possible STEMI alert with acute onset chest pain. The patient reports that her symptoms initially began on Tuesday when she was walking to [place] and experienced bilateral arm heaviness while walking with no other symptoms. Then, this afternoon shereports developing bilateral achy shoulder pain and nonradiating substernal left-sided chest pressure that was 7/10 in severity after coming home from [facility]. The patient denies any associated fevers, chills, [...] on repeat, her TRU resolved. Cardiology at [facility] was consulted for transfer; the patient was loaded with aspirin 324 mg and ticagrelor 180 mg, started on a heparin drip, and given nitroglycerin with improvement in chest pain. Upon arrival to [facility], the patient was taken directly to the [facility]. Two lesions were discovered: one in the prox RCA (felt to almost be a SANDER WOODEN PENCILS but they were able to wire, balloon, [...] dose administered prior to arrival in the manager cath lab. Recommended anti-platelet/anti-thrombotic regimen: Continue aspirin [...] and low lung volumes. 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 Pending Studies and [...] 10:40 AM Izaiah Meyer MD Cardiology at [place] Arrive at: [facility] [address] [phone] Future Orders Complete By Expires Referral to Cardiac Rehab [[id number] Custom] As directed Process Instructions: If no progress note charted, please enter Clinical details in comments. Scheduling Instructions: Questions: My question or request is: STEMI. Cardiac rehab at [facility]. Referral to Home Health [[id number] Custom] As directed Process Instructions: If no progress note charted, please enter Clinical details in comments. Scheduling Instructions: Comments: Please evaluate Adin Santos for admission to Home Health. [address] [facility] [phone] (home) Date of : 1940 Inpatient DOCUMENTATION FOR VNA SERVICES (INCLUDING THOSE PATIENTS WITH MEDICARE COVERAGE REQUIRING HOME VNA SERVICES AND/OR HOSPICE SERVICES) PATIENT'S LOCATION: Adin Santos [address] [facility] [phone] (home) Cell: Telephone Information: National Account Manager's Name: self In discussion with the attending physician, it is certified that this patient is under their care and that they, or a Nurse Practitioner, Clinical Nurse specialist or Physician Field Case Manager who is working directly with them, had [...] regarding health issues HOME HEALTH CARE AGENCY: [facility] [address] [place] [address] START OF CARE: within 24-48 hours of [...] Rosie Mathews MD [address] / [facility] [address] . All A agencies [...] Mathews MD / Dr. Masood Pierson [address] [place] [address] 11/09/23 1:55 PM arrival for 2:10 PM appointment Recreation Engineer: Izaiah Meyer MD [address] [place] [id number] , 11/24/2023 10:40 AM Your Inpatient Medical Team at [facility] Name(s) of your inpatient provider(s): Attending physician: Rosa Hugo MD Resident physicians: Emile Robles MD; Elmer Tamez MD If you have non-emergent questions, prior to your follow-up visit call: Tuesday-Tuesday between the hours of 8AM-5PM please call the Cardiology Clinic [phone] to speak with a nurse. All other hours please call the Hospital Branch Operation Evaluation Manager [phone] and ask to speak to the software developer consultant on-call. Your Primary Care Provider Rosie Mathews MD [phone] For questions regarding this document or issues relating to this hospitalization on the Medical Service, please contact your inpatient physician through the [facility] Branch Operation Evaluation Manager . Issues afterhours and on weekends will be handled by the Recreation Engineer staff on-call. Associated attestation - Rosa Hugo [...] MD / Dr. Masood Pierson [address] [place] [address] 11/09/23 1:55 PM arrival for 2:10 PM appointment Recreation Engineer: Izaiah Meyer MD [address] [place] [address] , 11/24/2023 10:40 AM Your Inpatient Medical Team at [facility] Name(s) of your inpatient provider(s): Attending physician: Rosa Hugo MD Resident physicians: Emile Robles MD; Elmer Tamez MD If you have non-emergent questions, prior to your follow-up visit call: Tuesday-Tuesday between the hours of 8AM-5PM please call the Cardiology Clinic [phone] to speak with a nurse. All other hours please call the Hospital Branch Operation Evaluation Manager [phone] and ask to speak to the software developer consultant on-call. Your Primary Care Provider Rosie Mathews MD [phone] documented in this encounter Medications at Time [...] for hypertension and hyperlipidemia who presented to [facility] as a transfer from [facility] [...] for hypertension and hyperlipidemia who presented to [facility] as a transfer from [facility] [...] Resident on Cardiology Service Cardiology S1 (Pager [phone]) Note written in conjunction with Claudio Perla [facility] Medical Student, MS3 Associated attestation - [...] Nirmala Webb - 11/01/2023 11:25 AM EDT Cupola Operator Insulation Encounter Note Patient Name: Adin Santos : [id number] MR#: [id number] Admit Date: 10/30/2023 5:11 PM Hospital Day 2 days Narrative: Self initiated visit to patient for Spiritual support in a regular unit rounds. Assessment: Patient is in the bathroom at the time of this visit. Not a good time for Clinical Program Coordinator visit. Intervention and Outcome: An attempted visit [...] for hypertension and hyperlipidemia who presented to [facility] as a transfer from [facility] [...] and low lung volumes. 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 Scheduled Medications: [AUG [...] for hypertension and hyperlipidemia who presented to [facility] as a transfer from [facility] [...] Resident on Cardiology Service Cardiology S1 (Pager [phone]) Note written in conjunction with Claudio Perla [facility] Medical Student, MS3 Associated attestation - [...] for hypertension and hyperlipidemia who presented to [facility] as a transfer from [facility] as a possible STEMI alert with acute onset chest pain. Active Problems: Active Hospital Problems Diagnosis Unstable angina Resolved Hospital Problems No resolved problems to display. 24 hr events: - Cath'd yesterday with lesion in the proximal RCA (initially thought it was SANDER WOODEN PENCILS but they were ableto wire, balloon and [...] and low lung volumes. 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 TTE (05/13): Interpretation [...] for hypertension and hyperlipidemia who presented to [facility] as a transfer from [facility] [...] Resident on Cardiology Service Cardiology S1 (Pager [phone]) Note written in conjunction with Claudio Perla [facility] Medical Student, MS3 Associated attestation - [...] PCP: Rosie Mathews MD PCP phone number: [phone] Date of Admission: 10/30/2023 ( Hospital Day 0 days ) Attending:Rosa Cornejo MD ID: Adin Santos is a 83 y.o. female PMH significant for hypertension and hyperlipidemia who presented to [facility] as a transfer from [facility] as a possible STEMI alert with acute onset chest pain. The patient reports that her symptoms initially began on Tuesday when she was walking to [place] [employer] and experienced bilateral arm heaviness while walking with no other symptoms. Then, this afternoon shereports developing bilateral achy shoulder pain and nonradiating substernal left-sided chest pressure that was 7/10 in severity after coming home from [facility]onism. The patient denies any associated fevers, chills, [...] on repeat, her TRU resolved. Cardiology at [facility] was consulted for transfer; the patient was loaded with aspirin 324 mg and ticagrelor 180 mg, started on a heparin drip, and given nitroglycerin with improvement in chest pain. Upon arrival to [facility], the patient was taken directly to the [facility]. 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 Assessment & Plan: Adin Santos is a 83 y.o. female PMH significant for hypertension and hyperlipidemia who presented to [facility] as a transfer from [facility] [...] with HTN HLD transferred with chest from [facility]. BP 217/68, HR [address] [...] information for follow-up Home Health & Hospice, [place] [address] [place] [address] TANESHA BOYCE confirmed with [facility] that they will see the patient within 24-48 hours of discharge for start of care. Transportation: family or friend will provide Wheelchair van/Ambulance? No Functional status prior to admission: Assistive Equipment Home Environment: Others in the home: alone. Current Living Arrangements: home/apartment/condo. Accessibility Concerns:1st floor apartment in [facility] [place]; handicapped accessible. Current Functional Ability: Assistive Equipment DME used at home: cane - straight, grab bar - tub/shower, grab bar - toilet, raised toilet seat DME Needed at Discharge: N/A Patient is insured through: Primary Insurance: [employer] MANAGED MEDICARE Payor: [employer] MEDICARE / Plan: [employer] MANAGED MEDICARE PPO / Product Type: *No [...] in the room. Electrolytes replaced, see MAR. general production laborer sites remained C/D/I with baseline ecchymosis unchanged. Pt complained of back pain, lidocaine patch given. Right IV infiltrated during infusion, patient is marked with sharpie, IV removed. See flowsheet for I+O's and safety rounding. Patient is able to make needs known and call capps within reach. PLAN MOVING FORWARD: Monitor Tele, control BP, monitor manager cath lab sites, D/C Planning INDIVIDUALIZED FALL [...] in an outpatient cardiac rehabilitation program at [facility] was discussed. Patient agrees to a referral [...] and above on RA. PT went to manager cath lab today. Left fem site oozed [...] MOVING FORWARD: Monitor Tele, control BP, monitor manager cath lab sites, D/C Planning INDIVIDUALIZED FALL [...] Admitted From: Transfer from another hospital Location: [facility] Reason for Hospitalization: chest pain Covid Vaccination [...] 180 days) Any patient receiving care in [place] must abide by [place] law. The hierarchy [...] Arrangements: home/apartment/condo. Accessibility Concerns:1st floor apartment in [facility] community; handicapped accessible. In the last 12 [...] toilet seat Home Address confirmed as: [address] [place] [phone] Social & Family Supports: All names listed below confirmed with patient as current and correct Extended Emergency Contact Information Primary Emergency Contact: Iris Downing Address: [address] [place], [place] [address] [place] [address] Mobile Relation: Child Secondary Emergency Contact: Karen More Address: [address] Mobile Relation: Child Current Care Provided by: self Provides Primary Care For: no one Caregiver if needed: child(emmanuel), adult Quality of Family relationships: involved, supportive Community Resources being provided currently: other (see comments) (receives [facility] services at home (1xweekly)) Behavioral Health [...] Insurance: N/A Prescription Coverage: Yes Preferred Pharmacy: [id number] - [place], [place] - [address] [facility] [address] [facility] [address] Status: Patient is a : No Primary Care Provider listed: Masood Pierson MD [phone] Patient/Caregiver Goals of Treatment: home when MR Potential Needs for Transition of Care: home health care Agency Referrals: Not Applicable I have met with the patient to: discuss discharge planning needs. provide the [facility], Office of Care Management letter from the Under Cutter pertaining to rehab referrals. provide a letter describing our affiliations within the [facility] and educate about their right to choose where referrals are sent. provide a list of Home Health Agencies / Durable Medical Equipment vendors which serve their preferred geographic area. provided patient with [facility] Star Quality Rating handout. They have requested referrals to: [facility] [address] [place] [address] Note routed to a Turret Punch Press Operator who will communicate referrals to facilities [...] results. PO hydralazine added for BP control. general production laborer sites remain C/D/I, ecchymosis unchanged th roughout shift. See flowsheet for I+O's and safety rounding. Patient is able to make needs known and call capps within reach. PLAN MOVING FORWARD: Monitor Tele, control CP and BP, NPO at MD for cath, monitor manager cath lab sites, D/C Planning INDIVIDUALIZED FALL [...] 11:20 AM EDT Office Visit Cardiology at [address] [place] [address] Izaiah Meyer MD [facility] [place] [address] Scheduled Referrals Name Type Priority Associated Diagnoses [...] 3:46 AM EDT) Neutrophil % 63.3 % [facility] Neutrophil Absolute 5.28 1.70 - 6.10 x10(3)/mc L [facility] Lymph % 15.2 % [facility] Lymphocytes Abs 1.3 0.9 - 3.2 x10(3)/ L [facility] Monocyte % 16.9 % [facility] Monocyte Abs 1.4(H) 0.3 - 0.9 x10(3)/ L [facility] Eos % 3.7 % [facility] Eosinophils Abs 0.3 0.0 - 0.4 x10(3)/[facility] Basophil % 0.5 % [facility] Baso Absolute 0.0 0.0 - 0.1 x10(3)/ L [facility] Immature Gran % 0.40 % [facility] Comment: Immature granulocytes(IG's)percentage and absolute count will include metamyelocytes, myelocytes, and promyelocytes. Blood smears from CBCs yielding IG's will be scanned manually for concordance. If this scan disagrees with the automated IG or if promyelocytes are noted, a manual differential will be performed. Immature Gran Absolute 0.03 0.00 - 0.04 x10(3)/mc L [facility] Blood 11/03/2023 3:46 AM EDT 11/03/2023 4:11 AM EDT Narrative Resulting Agency Comment Spec In Lab Qamar Gallardo MD HEMATOLOGY ORDERABLE S [facility] [place] [address] * (ABNORMAL) Hemogram (11/03/2023 3:46 AM EDT) White Blood Cell 8.3 4.0 - 9.5 x10(3)/mc L [facility] Red Blood Cell 3.77(L) 4.00 - 5.21 x10(6)/mc L [facility] Hemoglobin 13.1 11.7 - 15.5 g/dL [facility] Hematocrit 38.0 35.7 - 45.8 % [facility] Mean Cell Volume 100.8(H) 82.6 - 94.4 fL [facility] Mean Cell Hemoglobin 34.7(H) 27.1 - 32.0 pg [facility] Mean Cell Hemoglobin Concentration 34.5 31.7 - 35.0 g/dL [facility] Platelet 181 145 - 357 x10(3)/[facility] RDW Standard Deviation 54.7(H) 37.0 - 46.0 [facility] RDW coefficient of variation 14.6(H) 11.5 - 14.1 % [facility] Mean Platelet Volume 11.2 7.6 - 12.9 [facility] NRBC% auto 0.0 % [facility] NRBC Absolute 0.000 0.000 - 0.000 x10(3)/ L [facility] Blood 11/03/2023 3:46 AM EDT 11/03/2023 4:11 AM EDT Narrative Resulting Agency Comment Spec In Lab Qamar Gallardo MD HEMATOLOGY ORDERABLE S [facility] [place] [address] * Phosphorus (11/03/2023 3:46 AM EDT) Phosphorus 3.2 2.5 - 4.5 mg/dL [facility] Comment:result rechecked-KS Blood 11/03/2023 3:46 AM EDT 11/03/2023 4:11 AM EDT Narrative Resulting Agency Comment Spec In Lab Rosa Cornejo MD CHEMISTRY ORDERABLE S [facility] [place] [address] * Magnesium (11/03/2023 3:46 AM EDT) Magnesium 0.90 0.69 - 1.07 mmol/L [facility] Blood 11/03/2023 3:46 AM EDT 11/03/2023 4:11 AM EDT Narrative Resulting Agency Comment Spec In Lab Rosa Cornejo MD CHEMISTRY ORDERABLE S Performing Organization Address City/[facility]/ZIP Co de Phone Number [facility] [place] [address] * (ABNORMAL) Basic Metabolic Panel (non-fasting) (11/03/2023 3:46 AM EDT) Glucose 105 65 - 199 mg/dL [facility] Comment:Diabetes: >=200 mg/d L plus symptoms Blood Urea Nitrogen 13 8 - 18 mg/dL [facility] Creatinine 0.83 0.70 - 1.20 mg/dL [facility] Sodium 139 135 - 145 mmol/L [facility] Potassium 4.0 3.5 - 5.0 mmol/L [facility] Comment: Please note: ??Patients with WBC >100,000 may have falsely elevated Potassium levels. ??For accurate Potassium quantification in these patients send serum separator tube (gold top) for subsequent determinations. ??Contact the Clinical Chemistry Laboratory if there are any questions. Chloride 108(H) 98 - 107 mmol/L [facility] Carbon Dioxide 19(L) 22 - 31 mmol/L [facility] Anion Gap 12 5 - 15 mmol/L [facility] Calcium 8.2(L) 8.5 - 10.5 mg/dL [facility] Est Glomerular Filtration Rate 69 >=60 mL/min/1. 73 m?? [facility] Comment: This patient's estimated [...] Lab Rosa Cornejo MD CHEMISTRY ORDERABLE S [facility] [place] [phone] * EKG 12 Lead (11/02/2023 12:44 PM EDT) Ventricular rate 83 BPM MUSE SYSTEM Atrial Rate 83 BPM MUSE SYSTEM P-R Interval 216 ms MUSE SYSTEM QRS Duration 90 ms MUSE SYSTEM Q-T Interval 384 ms MUSE SYSTEM QTC Calculated (Bezet) 451 ms MUSE SYSTEM Calculated P [place] 92 degrees MUSE SYSTEM Calculated R [place] -51 degrees MUSE SYSTEM Calculated T [place] -33 degrees MUSE SYSTEM INTERPRETATION Sinus rhythm with 1st degree A-V block with Premature atrial complexes Left axis deviation Moderate voltage criteria for LVH, may be normal variant ( R in aVL , Ifeanyi product ) Anterolatera l infarct (cited on or before 01-NOV-2023) Abnormal ECG When compared with ECG of 01-NOV-2023 22:10, Premature atrial complexes are now Present CO interval has increased Vent. rate has decreased [...] specimen volume Bacteria, Urine Many(A) None /HPF [facility] Squamous Epithelial Cells Raw Data, Urine 10(H) <=4 /HPF [facility] Hyaline Casts, Urine 2 0 - 2 /LPF [facility] Comment: Interpret results with caution, microscopic results are from suboptimal specimen volume Clean Catch Urine 11/02/2023 11:40 AM EDT 11/02/2023 12:05 PM EDT Narrative Resulting Agency Comment Spec In Lab Elmer Tamez MD URINE ORDERABLES Performing Organization Address City/[facility] Co de Phone Number [facility] [place] [address] * (ABNORMAL) Urinalysis with reflex Culture (11/02/2023 11:40 AM EDT) Glucose, Urine Dipstick Negative Negative mg/dL [facility] Protein, Urine Dipstick 30(A) Negative mg/dL [facility] Bilirubin, Urine Dipstick Negative Negative mg/dL [facility] Comment: Clinical correlation required for positive Urine Bilirubin results as false positive may occur with some drugs and drug related products. If a false positive is suspected a serum total bilirubin should be considered if clinically indicated. Urobilinogen, Urine Dipstick Normal Normal mg/dL [facility] pH, Urn (dipstick) 5.5 5.0 - 8.0 [facility] Blood, Urine Dipstick Negative Negative mg/dL [facility] Ketone, Urine Dipstick Trace(A) Negative mg/dL [facility] Nitrite, Urine Dipstick Positive(A) Negative [facility] Leukocytes, Urine Dipstick Small(A) Negative [facility] Appearance, Urine Dipstick Cloudy(A) Clear [facility] Specific [place] Urine Automated >=1.030(A) 1.005 - 1.030 [facility] Color, Urine Dipstick Dark Yellow Yellow [facility] Reflex to Culture Yes [facility] Clean Catch Urine 11/02/2023 11:40 AM EDT 11/02/2023 12:04 PM EDT Narrative Resulting Agency Comment Spec In Lab Rosa Hugo MD URINE ORDERABLES Performing Organization Address City/State/[facility] Co de Phone Number [facility] [place] [address] * Respiratory Panel PCR (11/02/2023 10:15 AM EDT) Respiratory Panel Source [employer] [facility] Respiratory Panel PCR Negative Negative [facility] Comment: Respiratory Panels are performed on the [employer], using multiplexed PCR nucleic acid detection. ??Negative results do not preclude respiratory infection and should not be used as the sole basis for diagnosis, treatment or other management decisions. Adenovirus Not Detected Not Detected [facility] Coronavirus HKU1 Not Detected Not Detected [facility] Coronavirus NL63 Not Detected Not Detected [facility] Coronavirus 229E Not Detected Not Detected [facility] Coronavirus OC43 Not Detected Not Detected [facility] SARS-CoV-2 Not Detected Not Detected [facility] Comment: Testing for SARS-CoV-2 (Severe acute respiratory syndrome coronavirus 2) to aid in the diagnosis of COVID-19 is performed using the [employer] Respiratory Panel 2.1 ([employer]) as authorized by the FDA issued Emergency Use Authorization (EUA). This panel also tests for multiple other viral and bacterial pathogens. This assay is intended for In-vitro Diagnostic (IVD) use with nasopharyngeal swabs in viral transport media. The assay is performed based on the instructions for use and additional guidance provided by the FDA. Testing is performed in laboratories within the [facility], each of which is certified under the [...] fact sheets at the following FDA website: https://www.fda.gov/medical-devices/dvencuhamax-vgjozwg-2537-laswv-67-sxngluxrg- use-a robeaoucdpoey-dgmzank-vqrkxre/ckskh-epubxyghsgv-lrld Human Metapneumovirus Not Detected Not Detected [facility] Human Rhinovirus/Enterov irus Not Detected Not Detected [facility] Influenza A Not Detected Not Detected [facility] Influenza B Not Detected Not Detected [facility] Parainfluenza 1 Not Detected Not Detected [facility] Parainfluenza 2 Not Detected Not Detected [facility] Parainfluenza 3 Not Detected Not Detected [facility] Parainfluenza 4 Not Detected Not Detected [facility] Respiratory Syncytial Virus Not Detected Not Detected [facility] Chlamydophila pneumoniae Not Detected Not Detected [facility] Mycoplasma pneumoniae Not Detected Not Detected [facility] Nasopharyngeal Swab 11/02/19 10:15 AM EDT 11/02/2023 10:49 AM EDT Narrative Resulting Agency Comment Spec In Lab Rosa Hugo MD MICROBIOLOGY - GEN ERAL ORDERABLES [facility] [place] [address] * XR Chest One View (11/02/2023 2:51 AM EDT) WORKSTATION ID [id number] RAD Anatomical Region Laterality Modality Chest N/A [...] who have questions please contact the health acute care occupational therapist that requested your imaging first. ? Electronically signed by: Omaira Tran MD, [facility] ([phone]), at 11/02/2023 4:56 AM Narrative 11/02/2023 4:56 [...] patients who have questions please contactthe health acute care occupational therapist that requested your imaging first. Electronically signed by: Omaira Tran MD, [facility]([phone]), at 11/02/2023 4:56 AM Rosa Hugo MD IMG DX ORDERABLES * (ABNORMAL) Differential, Automated (11/02/2023 12:35 AM EDT) Neutrophil % 76.5 % [facility] Neutrophil Absolute 7.69(H) 1.70 - 6.10 x10(3)/mc L [facility] Lymph % 8.3 % [facility] Lymphocytes Abs 0.8(L) 0.9 - 3.2 x10(3)/mc L [facility] Monocyte % 12.9 % [facility] Monocyte Abs 1.3(H) 0.3 - 0.9 x10(3)/mc L [facility] Eos % 1.4 % [facility] Eosinophils Abs 0.1 0.0 - 0.4 x10(3)/mc L [facility] Basophil % 0.4 % [facility] Baso Absolute 0.0 0.0 - 0.1 x10(3)/mc L [facility] Immature Gran % 0.50 % [facility] Comment: Immature granulocytes(IG's)percentage and absolute count will include metamyelocytes, myelocytes, and promyelocytes. Blood smears from CBCs yielding IG's will be scanned manually for concordance. If this scan disagrees with the automated IG or if promyelocytes are noted, a manual differential will be performed. Immature Gran Absolute 0.05(H) 0.00 - 0.04 x10(3)/mc L [facility] Blood 11/02/2023 12:3 5 AM EDT 11/02/2023 12:43 AM EDT Narrative Resulting Agency Comment Spec In Lab Qamar Gallardo MD HEMATOLOGY ORDERABLE S [facility] [place] [address] * (ABNORMAL) Hemogram (11/02/2023 12:35 AM EDT) White Blood Cell 10.0(H) 4.0 - 9.5 x10(3)/mc L [facility] Red Blood Cell 4.06 4.00 - 5.21 x10(6)/mc L [facility] Hemoglobin 13.8 11.7 - 15.5 g/dL [facility] Hematocrit 39.8 35.7 - 45.8 % [facility] Mean Cell Volume 98.0(H) 82.6 - 94.4 fL [facility] Mean Cell Hemoglobin 34.0(H) 27.1 - 32.0 pg [facility] Mean Cell Hemoglobin Concentration 34.7 31.7 - 35.0 g/dL [facility] Platelet 198 145 - 357 x10(3)/mc L [facility] RDW Standard Deviation 52.1(H) 37.0 - 46.0 fL [facility] RDW coefficient of variation 14.3(H) 11.5 - 14.1 % [facility] Mean Platelet Volume 11.4 7.6 - 12.9 [facility] NRBC% auto 0.0 % [facility] NRBC Absolute 0.000 0.000 - 0.000 x10(3)/ L [facility] Blood 11/02/2023 12:3 5 AM EDT 11/02/2023 12:43 AM EDT Narrative Resulting Agency Comment Spec In Lab Qamar Gallardo MD HEMATOLOGY ORDERABLE S [facility] [place] [address] * (ABNORMAL) Phosphorus (11/02/2023 12:35 AM EDT) Phosphorus 1.6(L) 2.5 - 4.5 mg/dL [facility] Blood 11/02/2023 12:3 5 AM EDT 11/02/2023 12:43 AM EDT Narrative Resulting Agency Comment Spec In Lab Rosa Cornejo MD CHEMISTRY ORDERABLE S [facility] [place] [address] * Magnesium (11/02/2023 12:35 AM EDT) Pathologist [facility] Magnesium 0.87 0.69 - 1.07 mmol/L [facility] Blood 11/02/2023 12:3 5 AM EDT 11/02/2023 12:43 AM EDT Narrative Resulting Agency Comment Spec In Lab Rosa Cornejo MD CHEMISTRY ORDERABLE S Performing Organization Address City/[facility]/ZIP Co de Phone Number [facility] [place] [address] * Basic Metabolic Panel (non-fasting) (11/02/2023 12:35 AM EDT) Glucose 125 65 - 199 mg/dL [facility] Comment:Diabetes: >=200 mg/d L plus symptoms Blood Urea Nitrogen 9 8 - 18 mg/dL [facility] Creatinine 0.83 0.70 - 1.20 mg/dL [facility] Sodium 136 135 - 145 mmol/L [facility] Potassium 3.6 3.5 - 5.0 mmol/L [facility] Comment: Please note: ??Patients with WBC >100,000 may have falsely elevated Potassium levels. ??For accurate Potassium quantification in these patients send serum separator tube (gold top) for subsequent determinations. ??Contact the Clinical Chemistry Laboratory if there are any questions. Chloride 102 98 - 107 mmol/L [facility] Carbon Dioxide 25 22 - 31 mmol/L [facility] Anion Gap 9 5 - 15 mmol/L [facility] Calcium 9.0 8.5 - 10.5 mg/dL [facility] Est Glomerular Filtration Rate 69 >=60 mL/min/1. 73 m?? [facility] Comment: This patient's estimated [...] Lab Rosa Cornejo MD CHEMISTRY ORDERABLE S [facility] [place] [address] * Blood culture (11/02/2023 12:35 AM EDT) Blood Culture No growth at 5 days. [facility] Blood 11/02/2023 12:3 5 AM EDT 11/02/2023 1:55 AM EDT Comment:#2 site ukn Narrative Resulting Agency Comment Spec In Lab Rosa Hugo MD MICROBIOLOGY - BLO OD ORDERABLES [facility] [place] [address] * Blood culture (11/02/2023 12:15 AM EDT) Blood Culture No growth at 5 days. [facility] Blood 11/02/2023 12:1 5 AM EDT 11/02/2023 1:54 AM EDT Comment:#1site unk Narrative Resulting Agency Comment Spec In Lab Rosa Hugo MD MICROBIOLOGY - BLO OD ORDERABLES Performing Organization Address City/[facility]/ZIP Co de Phone Number [facility] [place] [address] * EKG 12 Lead (11/01/2023 10:10 PM EDT) Ventricular rate 139 BPM MUSE SYSTEM Atrial Rate 139 BPM MUSE SYSTEM P-R Interval 168 ms MUSE SYSTEM QRS Duration 84 ms MUSE SYSTEM Q-T Interval 286 ms MUSE SYSTEM QTC Calculated (Bezet) 435 ms MUSE SYSTEM Calculated R [place] -59 degrees MUSE SYSTEM Calculated T [place] -27 degrees MUSE SYSTEM INTERPRETATION Mid-RP tachycardia, consider sinus tachycardia or SVT Left axis deviation Moderate voltage criteria for LVH, may be normal variant ( R in aVL , [place] product ) Inferior infarct (cited on or before 01-NOV-2023) Anterolateral infarct (cited on or before 01-NOV-2023) Abnormal ECG When compared with ECG of 01-NOV-2023 15:22, Vent. rate Although rate has increased Serial changes of Anterior infarct Present I personally reviewed the tracing and edited the fellows interpretation Confirmed by fellow MD Andrés, Enriqueta ([id number]) on 11/04/2023 7:57:50 AM Confirmed by MD Gerardo, Shameka ([id number]) on 11/04/2023 4:32:03 PM MUSE SYSTEM 11/01/2023 10:1 0 PM EDT 11/04/2023 4:32 PM EDT Rosa Cornejo MD ECG ORDERABLES Performing Organization Address City/[facility]/ZIP Co de Phone Number MUSE SYSTEM * (ABNORMAL) Hemogram (11/01/2023 10:06 PM EDT) White Blood Cell 10.4(H) 4.0 - 9.5 x10(3)/ L [facility] Red Blood Cell 4.11 4.00 - 5.21 x10(6)/ L [facility] Hemoglobin 14.0 11.7 - 15.5 g/dL [facility] Hematocrit 41.1 35.7 - 45.8 % [facility] Mean Cell Volume 100.0(H) 82.6 - 94.4 fL [facility] Mean Cell Hemoglobin 34.1(H) 27.1 - 32.0 pg [facility] Mean Cell Hemoglobin Concentration 34.1 31.7 - 35.0 g/dL [facility] Platelet 197 145 - 357 x10(3)/[facility] LABORATORY RDW Standard Deviation 54.0(H) 37.0 - 46.0 fL [facility] RDW coefficient of variation 14.6(H) 11.5 - 14.1 % [facility] Mean Platelet Volume 11.2 7.6 - 12.9 fL [facility] NRBC% auto 0.0 % [facility] NRBC Absolute 0.000 0.000 - 0.000 x10(3)/[facility] LABORATORY Blood 11/01/2023 10:0 6 PM EDT 11/01/2023 10:22 PM EDT Narrative Resulting Agency Comment Spec In Lab Rosa Hugo MD HEMATOLOGY ORDERAB LES [facility] [place] [address] * POCT Glucose (11/01/2023 5:59 PM EDT) Glucose, POC 104 65 - 199 mg/dL [facility] Comment: Supplemental ranges: <140 mg/dL before meals <180 mg/dL all other times of the day Blood 11/01/2023 5:59 PM EDT 11/01/2023 5:59 PM EDT Rosa Hugo MD POINT OF CARE TEST ORDERABLES [facility] [place] [address] * POCT Glucose (11/01/2023 5:35 PM EDT) Glucose, POC 85 65 - 199 mg/dL [facility] Comment: Supplemental ranges: <140 mg/dL before meals <180 mg/dL all other times of the day Blood 11/01/2023 5:35 PM EDT 11/01/2023 5:35 PM EDT Rosa Hugo MD POINT OF CARE TEST ORDERABLES Performing Organization Address City/[facility] Co de Phone Number [facility] [place] [address] * EKG 12 Lead (11/01/2023 3:22 PM EDT) Ventricular rate 59 BPM MUSE SYSTEM Atrial Rate 59 BPM MUSE SYSTEM P-R Interval 220 ms MUSE SYSTEM QRS Duration 94 ms MUSE SYSTEM Q-T Interval 428 ms MUSE SYSTEM QTC Calculated (Bezet) 423 ms MUSE SYSTEM Calculated P [place] 76 degrees MUSE SYSTEM Calculated R [place] -50 degrees MUSE SYSTEM Calculated T [place] -59 degrees MUSE SYSTEM INTERPRETATION Sinus bradycardia [...] Modality Other Narrative 11/02/2023 4:57 PM EDT ?[facility] ? Cardiac Catheterization/Intervention Report ? Patient Name: Joleen, Adin Catherine. ? Procedure Date: 11/01/2023 ? A #: [id number] ? Primary Physician: Rosa Dewey I ? Case #: [id number] ? File Name: [id number] ? Catheterization Order Number: [id number] ? [facility] ?[facility] ? Final Report [place], [place] ? Patient Name: ? Adin Townsendjosue ?ID#: ?[id number] ? : ?1940 ? Procedure Date: ? [...] procedure was Urgent. The indication for ?the manager cath lab visit is ACS greater than [...] ??A premounted ? 3.50 x 15 mm [place] India[place]oma (RADHA) was deployed with a maximum ? [...] ? A premounted 3.50 x 15 mm [place] India[place] (RADHA) was deployed ? with a maximum [...] dose administered prior to arrival in the manager cath lab. ?Recommended anti-platelet/anti-thrombotic regimen: ?Continue aspirin 81 mg daily for indefinitely. ?Continue clopidogrel 75 mg daily for 12 months then stop. ?These recommendations are made at the time of the intervention. Patient ?and provider preferences or a changing clinical situation may require ?modification of this regimen. Consult [facility] Interventional Cardiology for ?questions. ?The 1 year [...] Note Otto, Rosa I, MD - 12/12/2023 [facility] Cardiac Catheterization/Intervention Report Patient Name: Adin Santos Procedure Date: 11/01/2023 A #: [id number] Primary Physician: Rosa Dewey I Case #: [id number] File Name: [id number] Catheterization Order Number: [id number] [facility] FinalReport [place], [place] Patient Name: Adin Santos ID#:[id number] :1940 Procedure Date: November 01, 2023 Case [...] diagnostic procedure was Urgent. The indicationfor the manager cath lab visit is ACS greater than [...] 14 atmospheres. Apremounted 3.50 x 15 mm [place] (RADHA) was deployed with amaximum inflation pressure [...] The lesion was predilated with a 3.00mm [id number] MM balloon with a maximum inflation pressure of 14atmospheres. A premounted 3.50 x 15 mm [place] Indiahoma (RADHA) wasdeployed with a maximum inflation pressure [...] dose administered prior to arrival in the manager cath lab. Recommended anti-platelet/anti-thrombotic regimen: Continue aspirin 81 mg daily for indefinitely. Continue clopidogrel 75 mg daily for 12 months then stop. These recommendations are made at the time of the intervention.Patient and provider preferences or a changing clinical situation mayrequire modification of this regimen. Consult [facility] Interventional Cardiologyfor questions. The 1 year bleeding [...] * POCT Glucose (11/01/2023 7:06 AM EDT) [facility] Glucose, POC 93 65 - 199 mg/dL [facility] Comment: Supplemental ranges: <140 mg/dL before meals <180 mg/dL all other times of the day Blood 11/01/2023 7:06 AM EDT 11/01/2023 7:06 AM EDT Jean Laboy MD POINT OF CARE TEST O RDERABLES [facility] [place] [address] * (ABNORMAL) Differential, Automated (11/01/2023 3:09 AM EDT) [facility] Neutrophil % 63.9 % [facility] Neutrophil Absolute 5.54 1.70 - 6.10 x10(3)/mc L [facility] Lymph % 20.0 % [facility] Lymphocytes Abs 1.7 0.9 - 3.2 x10(3)/mc L [facility] Monocyte % 11.9 % [facility] Monocyte Abs 1.0(H) 0.3 - 0.9 x10(3)/mc L [facility] Eos % 3.2 % [facility] Eosinophils Abs 0.3 0.0 - 0.4 x10(3)/mc L [facility] Basophil % 0.5 % [facility] Baso Absolute 0.0 0.0 - 0.1 x10(3)/mc L [facility] Immature Gran % 0.50 % [facility] Comment: Immature granulocytes(IG's)percentage and absolute count will include metamyelocytes, myelocytes, and promyelocytes. Blood smears from CBCs yielding IG's will be scanned manually for concordance. If this scan disagrees with the automated IG or if promyelocytes are noted, a manual differential will be performed. Immature Gran Absolute 0.04 0.00 - 0.04 x10(3)/ L [facility] Blood 11/01/2023 3:09 AM EDT 11/01/2023 3:29 AM EDT Narrative Resulting Agency Comment Spec In Lab Qamar Gallardo MD HEMATOLOGY ORDERABLE S Performing Organization Address City/State/[facility] Co de Phone Number [facility] [place] [address] * (ABNORMAL) Hemogram (11/01/2023 3:09 AM EDT) White Blood Cell 8.7 4.0 - 9.5 x10(3)/ L [facility] Red Blood Cell 3.72(L) 4.00 - 5.21 x10(6)/mc L [facility] Hemoglobin 12.5 11.7 - 15.5 g/dL [facility] Hematocrit 36.8 35.7 - 45.8 % [facility] Mean Cell Volume 98.9(H) 82.6 - 94.4 fL [facility] Mean Cell Hemoglobin 33.6(H) 27.1 - 32.0 pg [facility] Mean Cell Hemoglobin Concentration 34.0 31.7 - 35.0 g/dL [facility] Platelet 184 145 - 357 x10(3)/ L [facility] RDW Standard Deviation 53.5(H) 37.0 - 46.0 fL [facility] RDW coefficient of variation 14.6(H) 11.5 - 14.1 % [facility] Mean Platelet Volume 11.3 7.6 - 12.9 fL [facility] NRBC% auto 0.0 % [facility] NRBC Absolute 0.000 0.000 - 0.000 x10(3)/mc L [facility] Blood 11/01/2023 3:09 AM EDT 11/01/2023 3:29 AM EDT Narrative Resulting Agency Comment Spec In Lab Qamar Gallardo MD HEMATOLOGY ORDERABLE S Performing Organization Address City/[facility]/ZIP Co de Phone Number [facility] [place] [address] * Phosphorus (11/01/2023 3:09 AM EDT) Phosphorus 2.5 2.5 - 4.5 mg/dL [facility] Blood 11/01/2023 3:09 AM EDT 11/01/2023 3:29 AM EDT Narrative Resulting Agency Comment Spec In Lab Rosa Cornejo MD CHEMISTRY ORDERABLE S Performing Organization Address City/[facility]/ZIP Co de Phone Number [facility] [place] [address] * Magnesium (11/01/2023 3:09 AM EDT) Magnesium 0.82 0.69 - 1.07 mmol/L [facility] Blood 11/01/2023 3:09 AM EDT 11/01/2023 3:29 AM EDT Narrative Resulting Agency Comment Spec In Lab Rosa Cornejo MD CHEMISTRY ORDERABLE S Performing Organization Address City/[facility]/ZIP Co de Phone Number [facility] [place] [address] * (ABNORMAL) Basic Metabolic Panel (non-fasting) (11/01/2023 3:09 AM EDT) Glucose 100 65 - 199 mg/dL [facility] Comment:Diabetes: >=200 mg/d L plus symptoms Blood Urea Nitrogen 14 8 - 18 mg/dL [facility] Creatinine 0.83 0.70 - 1.20 mg/dL [facility] Sodium 137 135 - 145 mmol/L [facility] Potassium 3.4(L) 3.5 - 5.0 mmol/L [facility] Comment: Please note: ??Patients with WBC >100,000 may have falsely elevated Potassium levels. ??For accurate Potassium quantification in these patients send serum separator tube (gold top) for subsequent determinations. ??Contact the Clinical Chemistry Laboratory if there are any questions. Chloride 105 98 - 107 mmol/L [facility] Carbon Dioxide 24 22 - 31 mmol/L [facility] Anion Gap 8 5 - 15 mmol/L [facility] Calcium 8.6 8.5 - 10.5 mg/dL [facility] Est Glomerular Filtration Rate 69 >=60 mL/min/1. 73 m?? [facility] Comment: This patient's estimated [...] Lab Rosa Cornejo MD CHEMISTRY ORDERABLE S [facility] [place] [address] * (ABNORMAL) Troponin (10/31/2023 2:46 PM EDT) Troponin-T, High Sensitivity 544(H) <=14 ng/L [facility] Comment: This patient's troponin [...] can be found in the [facility] Test Catalog Troponin - [facility] Test Catalog Reference: Fourth [place] Definition of Myocardial Infarction. Journal of the [place] [employer] 2018;72:1505-0450 Blood 10/31/2023 2:46 PM EDT 10/31/2023 2:55 PM EDT Narrative Resulting Agency Comment Spec In Lab Jean Laboy MD CHEMISTRY ORDERABLES [facility] [place] [address] * EKG 12 Lead (10/31/2023 1:07 PM EDT) Ventricular rate 54 BPM MUSE SYSTEM Atrial Rate 54 BPM MUSE SYSTEM P-R Interval 218 ms MUSE SYSTEM QRS Duration 92 ms MUSE SYSTEM Q-T Interval 540 ms MUSE SYSTEM QTC Calculated (Bezet) 512 ms MUSE SYSTEM Calculated P [place] 85 degrees MUSE SYSTEM Calculated R [place] -44 degrees MUSE SYSTEM Calculated T [place] -69 degrees MUSE SYSTEM INTERPRETATION Sinus bradycardia with 1st degree A-V block Left axis deviation Moderate voltage criteria for LVH, may be normal variant ( R in aVL , [place] product ) T wave abnormality, consider inferolateral [...] EDT) Troponin-T, High Sensitivity 580(H) <=14 ng/L [facility] Comment: This patient's troponin [...] can be found in the [facility] Test Catalog Troponin - [facility] Test Catalog Reference: Fourth [place] Definition of Myocardial Infarction. Journal of the [place] [employer] 2018;72:2027-7799 Blood 10/31/2023 11:3 7 AM EDT 10/31/2023 11:50 AM EDT Narrative Resulting Agency Comment Spec In Lab Rosa Cornejo MD CHEMISTRY ORDERABLE S Performing Organization Address [facility]/State/ZIP Co de Phone Number [facility] [place] [address] * ECHO COMPLETE (10/31/2023 8:52 AM EDT) Anatomical Region Laterality Modality Cardiac Other 10/31/2023 7:57 AM EDT Narrative 10/31/2023 9:45 AM EDT [address] [place] [address] ? Echocardiogram Report Name: ADIN SANTOS ? Study Date: 10/31/2023 07:57 AMBP: 106/76 mmHg ? Patient Location: [id number] A : 1940 ? Height: 163 cm ? Account: [id number] Age: 83 yrs ? Weight: 76 kg Gender: Female ?BSA: 1.8 m2 Ordering Physician: ROSA DEWEY Referring Physician: OMAIRA GIRON Performed By: HAFSA Carmichael Reason For Study: STEMI Interpreting Fellow: Raymond Warren. Exam Location: [facility]. Interpretation Summary -The left ventricle is of [...] is no prior echocardiogram for comparison. Procedure Complete-96364. Satisfactory quality. There is sinus bradycardia. Left [...] Note Edgard Wang MD - 10/31/2023 [address] [place] [address] Echocardiogram Report Name: ADIN SANTOS Study Date: 407:57 AMBP: 106/76 mmHg Patient Location: [id number] A : 1940 Height: 163 cm Account: [id number] Age: 83 yrs Weight: 76 kg Gender: Female BSA: 1.8 m2 Ordering Physician: ROSA DEWEY Referring Physician: OMAIRA GIRON Performed By: HAFSA Carmichael Reason For Study: STEMI Interpreting Fellow: Raymond Warren. Exam Location: [facility]. Interpretation Summary -The left ventricle is of [...] is no prior echocardiogram for comparison. Procedure Complete-62589. Satisfactory quality. There is sinus bradycardia. Left [...] EDT) Troponin-T, High Sensitivity 571(H) <=14 ng/L [facility] Comment: This patient's troponin [...] can be found in the [facility] Test Catalog Troponin - [facility] Test Catalog Reference: Fourth [place] Definition of Myocardial Infarction. Journal of the [place] [employer] 2018;72:5806-5972 Blood 10/31/2023 8:51 AM EDT 10/31/2023 9:12 AM EDT Narrative Resulting Agency Comment Spec In Lab Rosa Cornejo MD CHEMISTRY ORDERABLE S [facility] [place] [address] * CARDIAC CATHETERIZATION (10/31/2023 8:10 AM EDT) Anatomical Region Laterality Modality Other Narrative 11/07/2023 9:42 AM EDT ?[facility] ? Cardiac Catheterization/Intervention Report ? Patient Name: Adin Santos. ? Procedure Date: 10/30/2023 ? A #: [id number] ? Primary Physician: Rosa Dewey I ? Case #: [id number] ? File Name: [id number] ? Catheterization Order Number: [id number] ? [facility] ? Final Report [place], [place] ? Patient Name: ? Adin M. Goguen ?ID#: ?[id number] ? : ?1940 ? Procedure Date: ? [...] procedure was Emergent. The indication for ?the manager cath lab visit is ACS less than [...] A premounted 4.00 x 38 mm Andrea Indiahoma (RADHA) was deployed ? with a maximum [...] dose administered prior to arrival in the manager cath lab. ?Recommended anti-platelet/anti-thrombotic regimen: ?Continue aspirin 81 mg daily for 12 months then stop. ?Continue clopidogrel 75 mg daily for indefinitely. ?These recommendations are made at the time of the intervention. Patient ?and provider preferences or a changing clinical situation may require ?modification of this regimen. Consult [facility] Interventional Cardiology for ?questions. ? Conclusions: ?* [...] Procedure Note Rosa Dewey MD - 12/05/2023 [facility] Cardiac Catheterization/Intervention Report Patient Name: Adin Santos Procedure Date: 10/30/2023 A #: [id number] Primary Physician: Rosa Dewey I Case #: [id number] File Name: [id number] Catheterization Order Number: [id number] [facility] FinalReport [place], [place] Patient Name: Adin CatherineYasir Edvinree ID#:[id number] :1940 Procedure Date: October 30, 2023 Case #: [id number] Room: 5 Case Physician: Rosa Dewey M.D. [...] was designated as ASA Class III. The [facility] clinical frailtyscale is 5: Mildly Frail. Diagnostic Tests: Electrocardiography: EKG was assessed by ECG. EKG was Abnormal. EKG showed STDeviation >= 0.5 mm, other abnormality and dynamic EKG changes. Medications Prior to Procedure: Aspirin, Angiotensin II Receptor Kristy, Beta Kristy andStatin. Indications for Diagnostic Cath: The priority of the diagnostic procedure was Emergent. Theindication for the manager cath lab visit is ACS less than [...] The priority for the procedure was Emergent.The [facility] indication for the procedure [...] A premounted 4.00 x 38 mm Andrea Indiahoma (RADHA) wasdeployed with a maximum inflation pressure [...] dose administered prior to arrival in the manager cath lab. Recommended anti-platelet/anti-thrombotic regimen: Continue aspirin 81 mg daily for 12 months then stop. Continue clopidogrel 75 mg daily for indefinitely. These recommendations are made at the time of the intervention.Patient and provider preferences or a changing clinical situation mayrequire modification of this regimen. Consult [facility] Interventional Cardiologyfor questions. Conclusions: * Two vessel [...] * (ABNORMAL) Troponin (10/31/2023 4:21 AM EDT) [facility] Troponin-T, High Sensitivity 457(H) <=14 ng/L [facility] Comment: This patient's troponin [...] can be found in the [facility] Test Catalog Troponin - [facility] Test Catalog Reference: Fourth [place] Definition of Myocardial Infarction. Journal of the [place] [employer] 2018;72:6671-4525 Blood 10/31/2023 4:21 AM EDT 10/31/2023 4:30 AM EDT Narrative Resulting Agency Comment Spec In Lab Rosa Cornejo MD CHEMISTRY ORDERABLE S [facility] [place] [address] * (ABNORMAL) Differential, Automated (10/31/2023 3:05 AM EDT) Neutrophil % 71.7 % [facility] Neutrophil Absolute 8.21(H) 1.70 - 6.10 x10(3)/mc L [facility] Lymph % 16.9 % [facility] Lymphocytes Abs 1.9 0.9 - 3.2 x10(3)/mc L [facility] Monocyte % 9.4 % [facility] Monocyte Abs 1.1(H) 0.3 - 0.9 x10(3)/mc L [facility] Eos % 1.3 % [facility] Eosinophils Abs 0.2 0.0 - 0.4 x10(3)/mc L [facility] Basophil % 0.4 % [facility] Baso Absolute 0.0 0.0 - 0.1 x10(3)/mc L [facility] Immature Gran % 0.30 % [facility] Comment: Immature granulocytes(IG's)percentage and absolute count will include metamyelocytes, myelocytes, and promyelocytes. Blood smears from CBCs yielding IG's will be scanned manually for concordance. If this scan disagrees with the automated IG or if promyelocytes are noted, a manual differential will be performed. Immature Gran Absolute 0.04 0.00 - 0.04 x10(3)/mc L [facility] Blood 10/31/2023 3:05 AM EDT 10/31/2023 3:13 AM EDT Narrative Resulting Agency Comment Spec In Lab Qamar Gallardo MD HEMATOLOGY ORDERABLE S [facility] [place] [address] * (ABNORMAL) Hemogram (10/31/2023 3:05 AM EDT) White Blood Cell 11.5(H) 4.0 - 9.5 x10(3)/ L [facility] Red Blood Cell 3.75(L) 4.00 - 5.21 x10(6)/[facility] LABORATORY Hemoglobin 12.6 11.7 - 15.5 g/dL [facility] Hematocrit 37.1 35.7 - 45.8 % [facility] Mean Cell Volume 98.9(H) 82.6 - 94.4 fL [facility] Mean Cell Hemoglobin 33.6(H) 27.1 - 32.0 pg [facility] Mean Cell Hemoglobin Concentration 34.0 31.7 - 35.0 g/dL [facility] Platelet 206 145 - 357 x10(3)/ L [facility] RDW Standard Deviation 53.4(H) 37.0 - 46.0 [facility] LAB[facility] RDW coefficient of variation 14.6(H) 11.5 - 14.1 % [facility] Mean Platelet Volume 11.1 7.6 - 12.9 [facility] LABORATORY NRBC% auto 0.0 % [facility] NRBC Absolute 0.000 0.000 - 0.000 x10(3)/ L [facility] Blood 10/31/2023 3:05 AM EDT 10/31/2023 3:13 AM EDT Narrative Resulting Agency Comment Spec In Lab Qamar Gallardo MD HEMATOLOGY ORDERABLE S Performing Organization Address [facility] Co de Phone Number [facility] [place] [address] * (ABNORMAL) APTT (10/31/2023 3:05 AM EDT) Partial Thromboplastin Time 67(H) 25 - 37 sec [facility] Comment: The PTT is NOT appropriate for heparin monitoring. Use the Anti-Xa level for heparin monitoring (HEP UFH) or LMWH monitoring (HEP LMW). A PTT less than 37 seconds generally indicates adequate hemostasis. Blood 10/31/2023 3:05 AM EDT 10/31/2023 3:13 AM EDT Narrative Resulting Agency Comment Spec In Lab Rosa Cornejo MD HEMATOLOGY ORDERABL ES Performing Organization Address [facility] de Phone Number [facility] [place] [address] * (ABNORMAL) Prothrombin Time (10/31/2023 3:05 AM EDT) Prothrombin Time 12.6(H) 9.4 - 12.5 sec [facility] International Normalization Ratio 1.1 [facility] Comment: An INR <2.0 [...] MD HEMATOLOGY ORDERABL ES Performing Organization Address [facility] Co de Phone Number [place] [address] * (ABNORMAL) Differential, Automated (10/31/2023 1:37 AM EDT) Pathologist [facility] Neutrophil % 71.1 % [facility] Neutrophil Absolute 7.53(H) 1.70 - 6.10 x10(3)/ L [facility] Lymph % 18.0 % [facility] Lymphocytes Abs 1.9 0.9 - 3.2 x10(3)/ L [facility] Monocyte % 8.7 % [facility] Monocyte Abs 0.9 0.3 - 0.9 x10(3)/[facility] LABORATORY Eos % 1.6 % [facility] Eosinophils Abs 0.2 0.0 - 0.4 x10(3)/[facility]ORATORY Basophil % 0.4 % [facility] Baso Absolute 0.0 0.0 - 0.1 x10(3)/[facility] LABORATORY Immature Gran % 0.20 % [facility] Comment: Immature granulocytes(IG's)percentage and absolute count will include metamyelocytes, myelocytes, and promyelocytes. Blood smears from CBCs yielding IG's will be scanned manually for concordance. If this scan disagrees with the automated IG or if promyelocytes are noted, a manual differential will be performed. Immature Gran Absolute 0.02 0.00 - 0.04 x10(3)/ L [facility] Blood 10/31/2023 1:37 AM EDT 10/31/2023 1:46 AM EDT Narrative Resulting Agency Comment Spec In Lab Qamar Gallardo MD HEMATOLOGY ORDERABLE S [facility] [place] [address] * (ABNORMAL) Hemogram (10/31/2023 1:37 AM EDT) Pathologist [facility] White Blood Cell 10.6(H) 4.0 - 9.5 x10(3)/mc L [facility] Red Blood Cell 3.78(L) 4.00 - 5.21 x10(6)/mc L [facility] Hemoglobin 13.0 11.7 - 15.5 g/dL [facility] Hematocrit 37.9 35.7 - 45.8 % [facility] Mean Cell Volume 100.3(H) 82.6 - 94.4 fL [facility] Mean Cell Hemoglobin 34.4(H) 27.1 - 32.0 pg [facility] Mean Cell Hemoglobin Concentration 34.3 31.7 - 35.0 g/dL [facility] Platelet 204 145 - 357 x10(3)/ L [facility] RDW Standard Deviation 54.3(H) 37.0 - 46.0 fL [facility] RDW coefficient of variation 14.6(H) 11.5 - 14.1 % [facility] Mean Platelet Volume 11.1 7.6 - 12.9 fL [facility] NRBC% auto 0.0 % [facility] NRBC Absolute 0.000 0.000 - 0.000 x10(3)/ L [facility] Blood 10/31/2023 1:37 AM EDT 10/31/2023 1:46 AM EDT Narrative Resulting Agency Comment Spec In Lab Qamar Gallardo MD HEMATOLOGY ORDERABLE S [facility] [place] [address] * Phosphorus (10/31/2023 1:37 AM EDT) Phosphorus 3.2 2.5 - 4.5 mg/dL [facility] Blood 10/31/2023 1:37 AM EDT 10/31/2023 1:46 AM EDT Narrative Resulting Agency Comment Spec In Lab Rosa Cornejo MD CHEMISTRY ORDERABLE S [facility] [place] [address] * Magnesium (10/31/2023 1:37 AM EDT) Pathologist [facility] Magnesium 0.83 0.69 - 1.07 mmol/L [facility] Blood 10/31/2023 1:37 AM EDT 10/31/2023 1:46 AM EDT Narrative Resulting Agency Comment Spec In Lab Rosa Cornejo MD CHEMISTRY ORDERABLE S Performing Organization Address [facility] Co de Phone Number [facility] [place] [address] * Basic Metabolic Panel (non-fasting) (10/31/2023 1:37 AM EDT) Pathologist [facility] Glucose 114 65 - 199 mg/dL [facility] Comment:Diabetes: >=200 mg/d L plus symptoms Blood Urea Nitrogen 13 8 - 18 mg/dL [facility] Creatinine 0.81 0.70 - 1.20 mg/dL [facility] Sodium 140 135 - 145 mmol/L [facility] Potassium 3.9 3.5 - 5.0 mmol/L [facility] Comment: Please note: ??Patients with WBC >100,000 may have falsely elevated Potassium levels. ??For accurate Potassium quantification in these patients send serum separator tube (gold top) for subsequent determinations. ??Contact the Clinical Chemistry Laboratory if there are any questions. Chloride 107 98 - 107 mmol/L [facility] Carbon Dioxide 25 22 - 31 mmol/L [facility] Anion Gap 8 5 - 15 mmol/L [facility] Calcium 8.6 8.5 - 10.5 mg/dL [facility] Est Glomerular Filtration Rate 72 >=60 mL/min/1. 73 m?? [facility] Comment: This patient's estimated [...] Lab Rosa Cornejo MD CHEMISTRY ORDERABLE S [facility] [place] [address] * (ABNORMAL) Troponin (10/31/2023 1:37 AM EDT) Troponin-T, High Sensitivity 329(H) <=14 ng/L [facility] Comment: This patient's troponin [...] can be found in the [facility] Test Catalog Troponin - [facility] Test Catalog Reference: Fourth [place] Definition of Myocardial Infarction. Journal of the [place] [employer] 2018;72:7249-9904 Blood 10/31/2023 1:37 AM EDT 10/31/2023 1:46 AM EDT Narrative Resulting Agency Comment Spec In Lab Rosa Cornejo MD CHEMISTRY ORDERABLE S Performing Organization Address [facility]/ZIP Co de Phone Number [facility] [place] [address] * EKG 12 Lead (10/31/2023 1:20 AM EDT) Ventricular rate 52 BPM MUSE SYSTEM Atrial Rate 52 BPM MUSE SYSTEM P-R Interval 224 ms MUSE SYSTEM QRS Duration 108 ms MUSE SYSTEM Q-T Interval 544 ms MUSE SYSTEM QTC Calculated (Bezet) 505 ms MUSE SYSTEM Calculated P [place] 90 degrees MUSE SYSTEM Calculated R [place] -57 degrees MUSE SYSTEM Calculated T [place] -63 degrees MUSE SYSTEM INTERPRETATION Sinus bradycardia with 1st degree A-V block Pulmonary disease pattern Left anterior fascicular block Moderate voltage criteria for LVH, may be normal variant ( R in aVL , [place] product ) T wave abnormality, consider inferior ischemia T wave abnormality, consider anterolateral ischemia Prolonged QT Abnormal ECG When compared with ECG of 30-OCT-2023 22:40, No significant change was found Confirmed by Charles COFFMAN, Butch ([id number]) on 11/01/2023 8:58:03 PM MUSE SYSTEM 10/31/2023 1:20 AM EDT 11/01/2023 8:58 PM EDT Rosa Cornejo MD ECG ORDERABLES Performing Organization Address City/[facility]/ZIP Co de Phone Number MUSE SYSTEM * EKG 12 Lead (10/30/2023 10:40 PM EDT) Ventricular rate 55 BPM MUSE SYSTEM Atrial Rate 55 BPM MUSE SYSTEM P-R Interval 232 ms MUSE SYSTEM QRS Duration 102 ms MUSE SYSTEM Q-T Interval 520 ms MUSE SYSTEM QTC Calculated (Bezet) 497 ms MUSE SYSTEM Calculated P [place] 75 degrees MUSE SYSTEM Calculated R [place] -53 degrees MUSE SYSTEM Calculated T [place] -57 degrees MUSE SYSTEM INTERPRETATION Sinus bradycardia [...] Chest One View (10/30/2023 10:10 PM EDT) [employer] WORKSTATION ID [id number] DH RAD Anatomical Region Laterality Modality Chest [...] and low lung volumes. 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 Thank you for letting us participate in the care of this patient. ??If you are a health care provider and have any questions regarding this report, please contact the number below. ??For patients who have questions please contact the health acute care occupational therapist that requested your imaging first. ? Narrative [...] and low lung volumes. 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 Thank you for letting us participate in the care of this patient. If youare a health care provider and have any questions regarding this report,please contact the number below. For patients who have questions please contactthe health acute care occupational therapist that requested your imaging first. Rosa Cornejo MD IMG DX ORDERABLES * Green Tube HOLD (10/30/2023 10:05 PM EDT) Pathologist [facility] Green Hold Sample in lab. [facility] Blood Venous Draw / Unknown 10/30/2023 10:05 PM EDT 10/30/2023 10:13 PM EDT Qamar Gallardo MD CHEMISTRY ORDERABLES [facility] [place] [address] * (ABNORMAL) Differential, Automated (10/30/2023 10:05 PM EDT) Pathologist [facility] Neutrophil % 76.6 % [facility] Neutrophil Absolute 6.94(H) 1.70 - 6.10 x10(3)/mc L [facility] Lymph % 15.4 % [facility] Lymphocytes Abs 1.4 0.9 - 3.2 x10(3)/mc L [facility] Monocyte % 6.1 % [facility] Monocyte Abs 0.6 0.3 - 0.9 x10(3)/mc L [facility] Eos % 1.1 % [facility] Eosinophils Abs 0.1 0.0 - 0.4 x10(3)/mc L [facility] Basophil % 0.6 % [facility] Baso Absolute 0.0 0.0 - 0.1 x10(3)/mc L [facility] Immature Gran % 0.20 % [facility] Comment: Immature granulocytes(IG's)percentage and absolute count will include metamyelocytes, myelocytes, and promyelocytes. Blood smears from CBCs yielding IG's will be scanned manually for concordance. If this scan disagrees with the automated IG or if promyelocytes are noted, a manual differential will be performed. Immature Gran Absolute 0.02 0.00 - 0.04 x10(3)/mc L [facility] Blood 10/30/2023 10:0 5 PM EDT 10/30/2023 10:12 PM EDT Narrative Resulting Agency Comment Spec In Lab Qamar Gallardo MD HEMATOLOGY ORDERABLE S [facility] [place] [address] * (ABNORMAL) Hemogram (10/30/2023 10:05 PM EDT) White Blood Cell 9.0 4.0 - 9.5 x10(3)/mc L [facility] Red Blood Cell 3.96(L) 4.00 - 5.21 x10(6)/mc L [facility] Hemoglobin 13.3 11.7 - 15.5 g/dL [facility] Hematocrit 39.1 35.7 - 45.8 % [facility] Mean Cell Volume 98.7(H) 82.6 - 94.4 fL [facility] Mean Cell Hemoglobin 33.6(H) 27.1 - 32.0 pg [facility] Mean Cell Hemoglobin Concentration 34.0 31.7 - 35.0 g/dL [facility] Platelet 211 145 - 357 x10(3)/mc L [facility] RDW Standard Deviation 53.6(H) 37.0 - 46.0 fL [facility] RDW coefficient of variation 14.6(H) 11.5 - 14.1 % [facility] Mean Platelet Volume 11.1 7.6 - 12.9 fL [facility] NRBC% auto 0.0 % [facility] NRBC Absolute 0.000 0.000 - 0.000 x10(3)/mc L [facility] Blood 10/30/2023 10:0 5 PM EDT 10/30/2023 10:12 PM EDT Narrative Resulting Agency Comment Spec In Lab Qamar Gallardo MD HEMATOLOGY ORDERABLE S Performing Organization Address [facility] Co de Phone Number [facility] [place] [address] * Hemoglobin A1c (10/30/2023 10:05 PM EDT) Hemoglobin A1c 5.5 4.3 - 5.6 % [facility] Comment: Reference Range: 4.3 [...] Mellitus, Diabetes Care 2013; 36: Suppl. 1, S67-21 Estimated Average Glucose See note mg/dL [facility] Comment: Estimated Average Glucose not appropriate for patients over 70 years of age. Blood 10/30/2023 10:0 5 PM EDT 10/30/2023 10:12 PM EDT Narrative Resulting Agency Comment Spec In Lab Rosa Cornejo MD CHEMISTRY ORDERABLE S Performing Organization Address [facility] Co de Phone Number [facility] [place] [address] * Lipid Panel (Reflex Direct LDL) (10/30/2023 10:05 PM EDT) Cholesterol, Total 218 mg/dL [facility] Comment: Desirable: ? <200 mg/dL Borderline High: 200-239 mg/dL Higher: ?>zj=974 mg/dL Triglyceride 46 mg/dL [facility] Comment: Normal: ?<150 mg/dL Borderline High: 150-199 mg/dL High: ?200-499 mg/dL Very High: ? >vt=380 mg/dL HDL Cholesterol 64 mg/dL [facility] Comment: Females: High Risk: <50 mg/dL Males: High Risk: <40 mg/dL LDL Cholesterol 145 mg/dL [facility] Comment: Desirable: ? <100 mg/dL Above Desirable: 100-129 mg/dL Borderline High: 130-159 mg/dL High: ?160-189 mg/dL Very High: ? >xh=452 mg/dL Lipid Interpretation See Note [facility] Comment: It is important [...] ACC/AHA Guidelines (most recently Feliciano et al. [facility] 03/23/22): For individuals with atherosclerotic cardiovascular disease (ASCVD)or LDL >un=994 mg/dL, use a high-intensity statin (40-80 mg [...] MD CHEMISTRY ORDERABLE S Performing Organization Address [facility] Co de Phone Number [facility] [place] [address] * TSH [place] (10/30/2023 10:05 PM EDT) Thyroid Stimulating Hormone 3.35 0.27 - 4.20 mcIU/mL [facility] Comment: Reference Interval (mcIU/mL): Females: ??First Trimester: 0.23-3.88 ??Second Trimester: 0.22-3.90 ??Third Trimester: 0.44-4.66 Blood 10/30/2023 10:0 5 PM EDT 10/30/2023 10:12 PM EDT Narrative Resulting Agency Comment Spec In Lab Rosa Cornejo MD CHEMISTRY ORDERABLE S Performing Organization Address [facility] Co de Phone Number [facility] [place] [address] * pro-Brain Natriuretic Peptide (10/30/2023 10:05 PM EDT) NT-proBNP 375 <=449 pg/mL [facility] Blood 10/30/2023 10:0 5 PM EDT 10/30/2023 10:12 PM EDT Narrative Resulting Agency Comment Spec In Lab Rosa Cornejo MD CHEMISTRY ORDERABLE S [facility] [place] [address] * (ABNORMAL) Comprehensive metabolic panel (non-fasting) (10/30/2023 10:05 PM EDT) Glucose 121 65 - 199 mg/dL [facility] Comment:Diabetes: >=200 mg/d L plus symptoms Blood Urea Nitrogen 14 8 - 18 mg/dL [facility] Creatinine 0.85 0.70 - 1.20 mg/dL [facility] Sodium 142 135 - 145 mmol/L [facility] Potassium 3.9 3.5 - 5.0 mmol/L [facility] Comment: Please note: ??Patients with WBC >100,000 may have falsely elevated Potassium levels. ??For accurate Potassium quantification in these patients send serum separator tube (gold top) for subsequent determinations. ??Contact the Clinical Chemistry Laboratory if there are any questions. Chloride 105 98 - 107 mmol/L [facility] Carbon Dioxide 27 22 - 31 mmol/L [facility] Anion Gap 10 5 - 15 mmol/L [facility] Calcium 8.8 8.5 - 10.5 mg/dL [facility] Protein, Total 6.5 6.1 - 8.0 g/dL [facility] Albumin 4.2 3.2 - 5.2 g/dL [facility] Aspartate Aminotransferase 36(H) 0 - 30 unit/L [facility] Alanine Aminotransferase 17 0 - 30 unit/L [facility] Alkaline Phosphatase 54 35 - 105 unit/L [facility] Bilirubin, Total 0.5 0.2 - 1.3 mg/dL [facility] Est Glomerular Filtration Rate 68 >=60 mL/min/1. 73 m?? [facility] Comment: This patient's estimated [...] MD CHEMISTRY ORDERABLE S Performing Organization Address City/[facility]/ZIP Co de Phone Number [facility] [place] [address] * Phosphorus (10/30/2023 10:05 PM EDT) Phosphorus 3.3 2.5 - 4.5 mg/dL [facility] Blood 10/30/2023 10:0 5 PM EDT 10/30/2023 10:12 PM EDT Narrative Resulting Agency Comment Spec In Lab Rosa Cornejo MD CHEMISTRY ORDERABLE S Performing Organization Address City/[facility]/ZIP Co de Phone Number [facility] [place] [address] * Magnesium (10/30/2023 10:05 PM EDT) Magnesium 0.86 0.69 - 1.07 mmol/L [facility] Blood 10/30/2023 10:0 5 PM EDT 10/30/2023 10:12 PM EDT Narrative Resulting Agency Comment Spec In Lab Rosa Cornejo MD CHEMISTRY ORDERABLE S Performing Organization Address City/[facility]/ZIP Co de Phone Number [facility] [place] [address] * (ABNORMAL) Troponin (10/30/2023 10:05 PM EDT) [facility] Troponin-T, High Sensitivity 214(H) <=14 ng/L [facility] Comment: This patient's troponin [...] can be found in the [facility] Test Catalog Troponin - [facility] Test Catalog Reference: Fourth [place] Definition of Myocardial Infarction. Journal of the [place] [employer] 2018;72:2505-3683 Blood 10/30/2023 10:0 5 PM EDT 10/30/2023 10:12 PM EDT Narrative Resulting Agency Comment Spec In Lab Rosa Cornejo MD CHEMISTRY ORDERABLE S [facility] [place] [address] * EKG 12 Lead (10/30/2023 8:21 PM EDT) [facility] Ventricular rate 49 BPM MUSE SYSTEM Atrial Rate 49 BPM MUSE SYSTEM P-R Interval 230 ms MUSE SYSTEM QRS Duration 96 ms MUSE SYSTEM Q-T Interval 526 ms MUSE SYSTEM QTC Calculated (Bezet) 475 ms MUSE SYSTEM Calculated P [place] 98 degrees MUSE SYSTEM Calculated R [place] -48 degrees MUSE SYSTEM Calculated T [place] -51 degrees MUSE SYSTEM INTERPRETATION Sinus bradycardia with 1st degree A-V block Incomplete right bundle branch block Left anterior fascicular block Moderate voltage criteria for LVH, may be normal variant ( R in aVL , [place] product ) T wave abnormality, consider inferior [...] High Blood Pressure 1628 (Given - Provider: Omaiar Concepcion RN) iohexoL (Omnipaque) (350 mg/mL) solution [...] last 24 to 72 hours., Routine 1333 ([facility] Hold - Provider: Admin Adt - Reason: Transfer to a Procedural area)1548 ([facility] Unhold - Provider: Admin Adt) sodium chloride 0.9 % (flush) (BD PosiFlush Normal Saline 0.9) flush 5-20 mL 5-20 mL, Intravenous, EVERY 1 MIN PRN, Starting on 10/30/23 at 2208, Until Amna 11/03/23 at 1913, flush, Flush pertains to all indwelling lines. Flush per protocol found in the job aid using the link provided on this medication record., Routine 1333 ([facility] Hold - Provider: Admin Adt - Reason: Transfer to a Procedural area)1548 ([facility] Unhold - Provider: Admin Adt) documented in this encounter Additional Health Concerns Infection Onset Date Last Indicated Resolved Time Rule Out Respiratory 11/02/2023 11/02/2023 024 12:22 PM EDT Rule Out COVID-19 11/02/2023 11/02/2023 11/02/2023 12:22 PM EDT documented as of this encounter Care Teams Talent Development Manager Relationship Specialty Start Date End Date Rosie Mathews MD [address] [place] [address] PCP - General Family Medicine 11/25/17 11/23/23 documented as of this encounter
--- OUTSIDE RECORDS SUMMARY | 2024-02-15 10:33 | XMS_ITS | Encounter Summary ---
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 Role Phone Rosie Mathews MD Primary Care Provider [phone] Reason for Visit * Auth/Cert (Routine) Specialty Diagnoses / Procedures Referred By Contbruce t Referred To Contact Diagnoses Unstable angina Chest pain NSTEMI Procedures CARDIAC CATHETERIZATION Rosa Dewey MD [facility] [place] [address] [facility] Referral ID Status Reason Start Date Expiration Date Visits Re quested Visits Authorized [id number] 1 1 Encounter Details Date Type Department Care Team (Late st Contact Info) Description 11/01/2023 3:33 PM EDT - 11/01/2023 5:03 PM [place] [address] Rosa Dewey MD [facility] [address] [place], [place] [id number] CARDIAC CATHETERIZATION Social History Tobacco Use Types Packs/Day Years Used Date Smoking Tobacco: Former Smokeless Tobacco: Never Alcohol Use Standard Drinks/Week Comments Not Currently 0 (1 standard drink = 0.6 oz pur e alcohol) [facility] Utilities Answer Date Recorded In the [...] and hyperlipidemia who presented to [facility] as a transfer from [facility] as a possible STEMI alert with acute onset chest pain. The patient reports that her symptoms initially began on Tuesday when she was walking to [facility] and experienced bilateral arm heaviness while walking with no other symptoms. Then, this afternoon shereports developing bilateral achy shoulder pain and nonradiating substernal left-sided chest pressure that was 7/10 in severity after coming home from scientologist. The patient denies any associated fevers, chills, [...] her TRU resolved. Cardiology at [facility] was consulted for transfer; the patient was loaded with aspirin 324 mg and ticagrelor 180 mg, started on a heparin drip, and given nitroglycerin with improvement in chest pain. Upon arrival to [facility], the patient was taken directly to the Manager Legal. Two lesions were discovered: one in the prox RCA (felt to almost be a COIL BINDER but they were able to wire, balloon, [...] prior to arrival in the cardiac cath rn. Recommended anti-platelet/anti-thrombotic regimen: Continue aspirin 81 mg [...] and low lung volumes. Findings similar to outpatient scheduler radiograph from CT 10/30/2023. Pending Studies and [...] 10:40 AM Izaiah Meyer MD Cardiology at [place] Arrive at: [facility] [address] [phone] Future Orders Complete By Expires Referral to Cardiac Rehab [[id number] Custom] As directed Process Instructions: If no progress note charted, please enter Clinical details in comments. Scheduling Instructions: Questions: My question or request is: STEMI. Cardiac rehab at [facility]. Referral to Home Health [[id number] Custom] As directed Process Instructions: If no progress note charted, please enter Clinical details in comments. Scheduling Instructions: Comments: Please evaluate Adin Santos for admission to Home Health. [address] [facility] [address] (home) Date of : 1940 Inpatient DOCUMENTATION FOR VNA SERVICES (INCLUDING THOSE PATIENTS WITH MEDICARE COVERAGE REQUIRING HOME VNA SERVICES AND/OR HOSPICE SERVICES) PATIENT'S LOCATION: Adin Santos [address] [facility] [address] (home) Cell: Telephone Information: Spool Carrier's Name: self In discussion with the attending physician, it is certified that this patient is under their care and that they, or a Nurse Practitioner, Clinical Nurse specialist or Physician Brush Trimming Machine Setter who is working directly with them, had [...] regarding health issues HOME HEALTH CARE AGENCY: [facility] [address] [address] START OF CARE: within 24-48 hours of [...] [address] / [facility] [address] . All A agencies which cover [...] MD / Dr. Masood Pierson [address] [place] [address] 11/09/23 1:55 PM arrival for 2:10 PM appointment Rx Specialist: Izaiah Meyer MD [address] [place] [id number] , 11/24/2023 10:40 AM Your Inpatient Medical Team at [facility] Name(s) of your inpatient provider(s): Attending physician: Rosa Hugo MD Resident physicians: Emile Robles MD; Elmer Tamez MD If you have non-emergent questions, prior to your follow-up visit call: Tuesday-Tuesday between the hours of 8AM-5PM please call the Cardiology Clinic [phone] to speak with a nurse. All other hours please call the [facility] [phone] and ask to speak to the philosophy faculty on-call. Your Primary Care Provider Rosie Mathews MD [phone] For questions regarding this document or issues relating to this hospitalization on the Medical Service, please contact your inpatient physician through the [facility] . Issues afterhours and on weekends will be handled by the Rx Specialist staff on-call. Associated attestation - Rosa Hugo [...] Mathews MD / Dr. Masood Pierson [address] [place] [address] 11/09/23 1:55 PM arrival for 2:10 PM appointment Rx Specialist: Izaiah Meyer MD [address] [place] [address] , 11/24/2023 10:40 AM Your Inpatient Medical Team at [facility] Name(s) of your inpatient provider(s): Attending physician: Rosa Hugo MD Resident physicians: Emile Robles MD; Elmer Tamez MD If you have non-emergent questions, prior to your follow-up visit call: Tuesday-Tuesday between the hours of 8AM-5PM please call the Cardiology Clinic [phone] to speak with a nurse. All other hours please call the [facility] [phone] and ask to speak to the philosophy faculty on-call. 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 Assessment: Patient is in the bathroom at the time of this visit. Not a good time for Flat Hammerer visit. Intervention and Outcome: An attempted visit [...] and hyperlipidemia who presented to [facility] as a transfer from [facility] [...] and low lung volumes. Findings similar to outpatient scheduler radiograph from CT 10/30/2023. Scheduled Medications: [AUG [...] and hyperlipidemia who presented to [facility] as a transfer from [facility] [...] Resident on Cardiology Service Cardiology S1 (Pager [phone]) Note written in conjunction with Claudio Perla [facility], MS3 Associated attestation - Rosa [...] and hyperlipidemia who presented to [facility] as a transfer from [facility] as a possible STEMI alert with acute onset chest pain. Active Problems: Active Hospital Problems Diagnosis Unstable angina Resolved Hospital Problems No resolved problems to display. 24 hr events: - Cath'd yesterday with lesion in the proximal RCA (initially thought it was COIL BINDER but they were ableto wire, balloon and [...] and low lung volumes. Findings similar to outpatient scheduler radiograph from CT 10/30/2023. TTE (10/30): Interpretation [...] and hyperlipidemia who presented to [facility] as a transfer from [facility] [...] Resident on Cardiology Service Cardiology S1 (Pager [phone]) Note written in conjunction with Claudio Perla [facility], MS3 Associated attestation - Rosa [...] PCP: Rosie Mathews MD PCP phone number: [phone] Date of Admission: 10/30/2023 ( Hospital Day 0 days ) Attending:Rosa Cornejo MD ID: Adin Santos is a 83 y.o. female PMH significant for hypertension and hyperlipidemia who presented to [facility] as a transfer from [facility] as a possible STEMI alert with acute onset chest pain. The patient reports that her symptoms initially began on Tuesday when she was walking to [facility] and experienced bilateral arm heaviness while walking with no other symptoms. Then, this afternoon shereports developing bilateral achy shoulder pain and nonradiating substernal left-sided chest pressure that was 7/10 in severity after coming home from scientologist. The patient denies any associated fevers, chills, [...] her TRU resolved. Cardiology at [facility] was consulted for transfer; the patient was loaded with aspirin 324 mg and ticagrelor 180 mg, started on a heparin drip, and given nitroglycerin with improvement in chest pain. Upon arrival to [facility], the patient was taken directly to the Manager Legal. 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 Findings similar to outpatient scheduler radiograph from CT 10/30/2023. Assessment & Plan: Adin Santos is a 83 y.o. female PMH significant for hypertension and hyperlipidemia who presented to [facility] as a transfer from [facility] [...] with HTN HLD transferred with chest from [facility]. BP 217/68, HR 71 EKG with [...] information for follow-up Home Health & Hospice, [place] [address] TANESHA BOYCE confirmed with [facility] that they will see the patient within 24-48 hours of discharge for start of care. Transportation: family or friend will provide Wheelchair van/Ambulance? No Functional status prior to admission: Assistive Equipment Home Environment: Others in the home: alone. Current Living Arrangements: home/apartment/condo. Accessibility Concerns:1st floor apartment in residential community; handicapped accessible. Current Functional Ability: Assistive Equipment DME used at home: cane - straight, grab bar - tub/shower, grab bar - toilet, raised toilet seat DME Needed at Discharge: N/A Patient is insured through: Primary Insurance: [employer] MANAGED MEDICARE Payor: [employer] MANAGED MEDICARE / Plan: [employer] MANAGED MEDICARE PPO / Product Type: *No [...] Monitor Tele, control BP, monitor cardiac cath rn sites, D/C Planning INDIVIDUALIZED FALL PREVENTION INTERVENTIONS: [...] in an outpatient cardiac rehabilitation program at [facility] was discussed. Patient agrees to a [...] on RA. PT went to cardiac cath rn today. Left fem site oozed throughout shift, [...] Monitor Tele, control BP, monitor cardiac cath rn sites, D/C Planning INDIVIDUALIZED FALL PREVENTION INTERVENTIONS: [...] Admitted From: Transfer from another hospital Location: [facility] Reason for Hospitalization: chest pain Covid Vaccination Status: 1st, 2nd & booster Past medical History: No past medical history on file. Hospitalizations Within the Past 30 Days: no previous admission in last 30 days Current Decision-Making Capacity: Self If AD's have not been completed the following surrogate would be surrogate decision maker per [place] surrogate decision making law. (Only good for 180 days) Any patient receiving care in [place] must abide by [place] law. The hierarchy for surrogate decision making [...] (i) The agent with financial power of tax associate attorney or a conservator appointed in [...] Arrangements: home/apartment/condo. Accessibility Concerns:1st floor apartment in residential community; handicapped accessible. In the last 12 [...] has the electric, gas, oil, or water [employer] threatened to shut off services in your [...] toilet seat Home Address confirmed as: [address] [facility] [address] Social & Family Supports: All names listed below confirmed with patient as current and correct Extended Emergency Contact Information Primary Emergency Contact: Iris Downing Address: [address] [place], [place] [address] [place] [address] Mobile Relation: Child Secondary Emergency Contact: Karen More Address: [address] [facility] Mobile Relation: Child Current Care Provided by: self Provides Primary Care For: no one Caregiver if needed: child(emmanuel), adult Quality of Family relationships: involved, supportive Community Resources being provided currently: other (see comments) (receives [facility] services at home (1xweekly)) Behavioral Health History: [...] Specific Information: N/A Health/Prescription Coverage: Primary Insurance: [employer] MANAGED MEDICARE Payor: [employer] MANAGED MEDICARE / Plan: [employer] MANAGED MEDICARE PPO / Product Type: *No Product type* / Secondary Insurance: N/A Prescription Coverage: Yes Preferred Pharmacy: [id number] - [place], [place] - [address] [place] [id number] [address] [place] Status: Patient is a : No Primary Care Provider listed: Masood Pierson MD [phone] Patient/Caregiver Goals of Treatment: home when MR Potential Needs for Transition of Care: home health care Agency Referrals: Not Applicable I have met with the patient to: discuss discharge planning needs. provide the [facility], Office of Care Management letter from the Line Assembler pertaining to rehab referrals. provide a letter describing our affiliations within the [facility] and educate about their right to choose where referrals are sent. provide a list of Home Health Agencies / Durable Medical Equipment vendors which serve their preferred geographic area. provided patient with [facility] Star Quality Rating handout. They have requested referrals to: [facility] [address] [place] [address] Note routed to a Computer Operations Specialist who will communicate referrals to facilities [...] at MD for cath, monitor cardiac cath rn sites, D/C Planning INDIVIDUALIZED FALL PREVENTION INTERVENTIONS: [...] AM EDT Office Visit Cardiology at [address] [place] [address] Izaiah Meyer MD [facility] [place] [address] Scheduled Referrals Name Type Priority Associated Diagnoses [...] Absolute 5.28 1.70 - 6.10 x10(3)/mc L [facility] Lymph % 15.2 % [facility] Lymphocytes Abs 1.3 0.9 - 3.2 x10(3)/mc L [facility] Monocyte % 16.9 % [facility] Monocyte Abs 1.4(H) 0.3 - 0.9 x10(3)/mc L [facility] Eos % 3.7 % [facility] Eosinophils Abs 0.3 0.0 - 0.4 x10(3)/ L [facility] Basophil % 0.5 % [facility] Baso Absolute 0.0 0.0 - 0.1 x10(3)/mc L [facility] Immature Gran % 0.40 % [facility] Comment: Immature granulocytes(IG's)percentage and absolute count will include metamyelocytes, myelocytes, and promyelocytes. Blood smears from CBCs yielding IG's will be scanned manually for concordance. If this scan disagrees with the automated IG or if promyelocytes are noted, a manual differential will be performed. Immature Gran Absolute 0.03 0.00 - 0.04 x10(3)/mc L [facility] Blood 11/03/2023 3:46 AM EDT 11/03/2023 4:11 AM EDT Narrative Resulting Agency Comment Spec In Lab Qamar Gallardo MD HEMATOLOGY ORDERABLE S [facility] [place] [address] * (ABNORMAL) Hemogram (11/03/2023 3:46 AM EDT) White Blood Cell 8.3 4.0 - 9.5 x10(3)/mc L [facility] Red Blood Cell 3.77(L) 4.00 - 5.21 x10(6)/mc L [facility] Hemoglobin 13.1 11.7 - 15.5 g/dL [facility] Hematocrit 38.0 35.7 - 45.8 % [facility] Mean Cell Volume 100.8(H) 82.6 - 94.4 fL [facility] Mean Cell Hemoglobin 34.7(H) 27.1 - 32.0 pg [facility] Mean Cell Hemoglobin Concentration 34.5 31.7 - 35.0 g/dL [facility] Platelet 181 145 - 357 x10(3)/mc L [facility] RDW Standard Deviation 54.7(H) 37.0 - 46.0 fL [facility] RDW coefficient of variation 14.6(H) 11.5 - 14.1 % [facility] Mean Platelet Volume 11.2 7.6 - 12.9 fL [facility] NRBC% auto 0.0 % [facility] NRBC Absolute 0.000 0.000 - 0.000 x10(3)/mc L [facility] Blood 11/03/2023 3:46 AM EDT 11/03/2023 4:11 AM EDT Narrative Resulting Agency Comment Spec In Lab Qamar Gallardo MD HEMATOLOGY ORDERABLE S Performing Organization Address City/[facility]/ZIP Co de Phone Number [facility] [place] [address] * Phosphorus (11/03/2023 3:46 AM EDT) Pathologist [facility] Phosphorus 3.2 2.5 - 4.5 mg/dL [facility] Comment:result rechecked-KS Blood 11/03/2023 3:46 AM EDT 11/03/2023 4:11 AM EDT Narrative Resulting Agency Comment Spec In Lab Rosa Cornejo MD CHEMISTRY ORDERABLE S Performing Organization Address [facility] Co de Phone Number [facility] [place] [address] * Magnesium (11/03/2023 3:46 AM EDT) [facility] Magnesium 0.90 0.69 - 1.07 mmol/L [facility] Blood 11/03/2023 3:46 AM EDT 11/03/2023 4:11 AM EDT Narrative Resulting Agency Comment Spec In Lab Rosa Cornejo MD CHEMISTRY ORDERABLE S Performing Organization Address [facility] Co de Phone Number [facility] [place] [address] * (ABNORMAL) Basic Metabolic Panel (non-fasting) (11/03/2023 3:46 AM EDT) Pathologist [facility] Glucose 105 65 - 199 mg/dL [facility] Comment:Diabetes: >=200 mg/d L plus symptoms Blood Urea Nitrogen 13 8 - 18 mg/dL [facility] Creatinine 0.83 0.70 - 1.20 mg/dL [facility] Sodium 139 135 - 145 mmol/L [facility] Potassium 4.0 3.5 - 5.0 mmol/L [facility] Comment: Please note: ??Patients with WBC >100,000 may have falsely elevated Potassium levels. ??For accurate Potassium quantification in these patients send serum separator tube (gold top) for subsequent determinations. ??Contact the Clinical Chemistry Laboratory if there are any questions. Chloride 108(H) 98 - 107 mmol/L [facility] Carbon Dioxide 19(L) 22 - 31 mmol/L [facility] Anion Gap 12 5 - 15 mmol/L [facility] Calcium 8.2(L) 8.5 - 10.5 mg/dL [facility] Est Glomerular Filtration Rate 69 >=60 mL/min/1. 73 m?? [facility] Comment: This patient's estimated GFR [...] Lab Rosa Cornejo MD CHEMISTRY ORDERABLE S [facility] [place] [address] * EKG 12 Lead (11/02/2023 12:44 PM EDT) Ventricular rate 83 BPM MUSE SYSTEM Atrial Rate 83 BPM MUSE SYSTEM P-R Interval 216 ms MUSE SYSTEM QRS Duration 90 ms MUSE SYSTEM Q-T Interval 384 ms MUSE SYSTEM QTC Calculated (Bezet) 451 ms MUSE SYSTEM Calculated P [place] 92 degrees MUSE SYSTEM Calculated R [place] -51 degrees MUSE SYSTEM Calculated T [place] -33 degrees MUSE SYSTEM INTERPRETATION Sinus rhythm with 1st degree A-V block with Premature atrial complexes Left axis deviation Moderate voltage criteria for LVH, may be normal variant ( R in aVL , Ifeanyi product ) Anterolatera l infarct (cited on or before 01-NOV-2023) Abnormal ECG When compared with ECG of 01-NOV-2023 22:10, Premature atrial complexes are now Present HI interval has increased Vent. rate has decreased BY ??56 BPM Confirmed by MD Kevin, Esteban ([id number]) on 11/02/2023 1:32:10 PM MUSE SYSTEM 11/02/2023 12:4 4 PM EDT 11/02/2023 1:32 PM EDT Rosa Hugo MD ECG ORDERABLES MUSE SYSTEM * (ABNORMAL) Urinalysis Microscopic Exam (11/02/2023 11:40 AM EDT) RBC, Urine <1 0 - 4 /HPF [facility] Comment: Interpret results with caution, microscopic results are from suboptimal specimen volume WBC, Urine 16(H) 0 - 5 /HPF [facility] Comment: Interpret results with caution, microscopic results are from suboptimal specimen volume Bacteria, Urine Many(A) None /HPF [facility] Squamous Epithelial Cells Raw Data, Urine 10(H) <=4 /HPF [facility] Hyaline Casts, Urine 2 0 - 2 /LPF [facility] Comment: Interpret results with caution, microscopic results are from suboptimal specimen volume Clean Catch Urine 11/02/2023 11:40 AM EDT 11/02/2023 12:05 PM EDT Narrative Resulting Agency Comment Spec In Lab Elmer Tamez MD URINE ORDERABLES [facility] [place] [address] * (ABNORMAL) Urinalysis with reflex Culture (11/02/2023 11:40 AM EDT) Glucose, Urine Dipstick Negative Negative mg/dL [facility] Protein, Urine Dipstick 30(A) Negative mg/dL [facility] Bilirubin, Urine Dipstick Negative Negative mg/dL [facility] Comment: Clinical correlation required for positive Urine Bilirubin results as false positive may occur with some drugs and drug related products. If a false positive is suspected a serum total bilirubin should be considered if clinically indicated. Urobilinogen, Urine Dipstick Normal Normal mg/dL [facility] pH, Urn (dipstick) 5.5 5.0 - 8.0 [facility] Blood, Urine Dipstick Negative Negative mg/dL [facility] Ketone, Urine Dipstick Trace(A) Negative mg/dL [facility] Nitrite, Urine Dipstick Positive(A) Negative [facility] Leukocytes, Urine Dipstick Small(A) Negative [facility] Appearance, Urine Dipstick Cloudy(A) Clear [facility] Specific [place] Urine Automated >=1.030(A) 1.005 - 1.030 [facility] Color, Urine Dipstick Dark Yellow Yellow [facility] Reflex to Culture Yes [facility] Clean Catch Urine 11/02/2023 11:40 AM EDT 11/02/2023 12:04 PM EDT Narrative Resulting Agency Comment Spec In Lab Rosa Hugo MD URINE ORDERABLES [facility] [place] [address] * Respiratory Panel PCR (11/02/2023 10:15 AM EDT) Respiratory Panel Source DRIER ATTENDANT Swab [facility] Respiratory Panel PCR Negative Negative [facility] Comment: Respiratory Panels are performed on the Kiwi, using multiplexed PCR nucleic acid detection. ??Negative results do not preclude respiratory infection and should not be used as the sole basis for diagnosis, treatment or other management decisions. Adenovirus Not Detected Not Detected [facility] Coronavirus HKU1 Not Detected Not Detected [facility] Coronavirus NL63 Not Detected Not Detected [facility] Coronavirus 229E Not Detected Not Detected [facility] Coronavirus OC43 Not Detected Not Detected [facility] SARS-CoV-2 Not Detected Not Detected [facility] Comment: Testing for SARS-CoV-2 (Severe acute respiratory syndrome coronavirus 2) to aid in the diagnosis of COVID-19 is performed using the [employer] Respiratory Panel 2.1 ([place]) as authorized by the FDA issued Emergency [...] fact sheets at the following FDA website: https://www.fda.gov/medical-devices/hjqqdigvtvx-sdackkn-4516-kixqu-83-qtcyfzbaq- use-a xdlupgyxwqqpe-bafmfys-rleziyh/oqzis-voszbdvklxk-aiwp Human Metapneumovirus Not Detected Not Detected [facility] Human Rhinovirus/Enterov irus Not Detected Not Detected [facility] Influenza A Not Detected Not Detected [facility] Influenza B Not Detected Not Detected [facility] Parainfluenza 1 Not Detected Not Detected [facility] Parainfluenza 2 Not Detected Not Detected [facility] Parainfluenza 3 Not Detected Not Detected [facility] Parainfluenza 4 Not Detected Not Detected [facility] Respiratory Syncytial Virus Not Detected Not Detected [facility] Chlamydophila pneumoniae Not Detected Not Detected [facility] Mycoplasma pneumoniae Not Detected Not Detected [facility] Nasopharyngeal Swab 11/02/19 10:15 AM EDT 11/02/2023 10:49 AM EDT Narrative Resulting Agency Comment Spec In Lab Rosa Hugo MD MICROBIOLOGY - GEN ERAL ORDERABLES [facility] [place] [address] * XR Chest One View (11/02/2023 2:51 AM EDT) WORKSTATION ID [id number] RAD Anatomical Region Laterality Modality Chest N/A [...] have questions please contact the health rn patient care that requested your imaging first. ? Electronically signed by: Omaira Tran MD, [facility] ([phone]), at 11/02/2023 4:56 AM Narrative 11/02/2023 4:56 [...] who have questions please contactthe health rn patient care that requested your imaging first. Electronically signed by: Omaira Tran MD, [facility]([phone]), at 11/02/2023 4:56 AM Rosa Hugo MD IMG DX ORDERABLES * (ABNORMAL) Differential, Automated (11/02/2023 12:35 AM EDT) Neutrophil % 76.5 % [facility] Neutrophil Absolute 7.69(H) 1.70 - 6.10 x10(3)/mc L [facility] Lymph % 8.3 % [facility] Lymphocytes Abs 0.8(L) 0.9 - 3.2 x10(3)/mc L [facility] Monocyte % 12.9 % [facility] Monocyte Abs 1.3(H) 0.3 - 0.9 x10(3)/mc L [facility] Eos % 1.4 % [facility] Eosinophils Abs 0.1 0.0 - 0.4 x10(3)/mc L [facility] Basophil % 0.4 % [facility] Baso Absolute 0.0 0.0 - 0.1 x10(3)/mc L [facility] Immature Gran % 0.50 % [facility] Comment: Immature granulocytes(IG's)percentage and absolute count will include metamyelocytes, myelocytes, and promyelocytes. Blood smears from CBCs yielding IG's will be scanned manually for concordance. If this scan disagrees with the automated IG or if promyelocytes are noted, a manual differential will be performed. Immature Gran Absolute 0.05(H) 0.00 - 0.04 x10(3)/mc L [facility] Blood 11/02/2023 12:3 5 AM EDT 11/02/2023 12:43 AM EDT Narrative Resulting Agency Comment Spec In Lab Qamar Gallardo MD HEMATOLOGY ORDERABLE S [facility] [place] [address] * (ABNORMAL) Hemogram (11/02/2023 12:35 AM EDT) White Blood Cell 10.0(H) 4.0 - 9.5 x10(3)/ L [facility] Red Blood Cell 4.06 4.00 - 5.21 x10(6)/mc L [facility] Hemoglobin 13.8 11.7 - 15.5 g/dL [facility] Hematocrit 39.8 35.7 - 45.8 % [facility] Mean Cell Volume 98.0(H) 82.6 - 94.4 fL [facility] Mean Cell Hemoglobin 34.0(H) 27.1 - 32.0 pg [facility] Mean Cell Hemoglobin Concentration 34.7 31.7 - 35.0 g/dL [facility] Platelet 198 145 - 357 x10(3)/mc L [facility] RDW Standard Deviation 52.1(H) 37.0 - 46.0 fL [facility] RDW coefficient of variation 14.3(H) 11.5 - 14.1 % [facility] Mean Platelet Volume 11.4 7.6 - 12.9 fL [facility] NRBC% auto 0.0 % [facility] NRBC Absolute 0.000 0.000 - 0.000 x10(3)/mc L [facility] Blood 11/02/2023 12:3 5 AM EDT 11/02/2023 12:43 AM EDT Narrative Resulting Agency Comment Spec In Lab Qamar Gallardo MD HEMATOLOGY ORDERABLE S [facility] [place] [address] * (ABNORMAL) Phosphorus (11/02/2023 12:35 AM EDT) Phosphorus 1.6(L) 2.5 - 4.5 mg/dL [facility] Blood 11/02/2023 12:3 5 AM EDT 11/02/2023 12:43 AM EDT Narrative Resulting Agency Comment Spec In Lab Rosa Cornejo MD CHEMISTRY ORDERABLE S Performing Organization Address City/[facility]/ZIP Co de Phone Number [facility] [place] [address] * Magnesium (11/02/2023 12:35 AM EDT) Magnesium 0.87 0.69 - 1.07 mmol/L [facility] Blood 11/02/2023 12:3 5 AM EDT 11/02/2023 12:43 AM EDT Narrative Resulting Agency Comment Spec In Lab Rosa Cornejo MD CHEMISTRY ORDERABLE S Performing Organization Address City/[facility]/ZIP Co de Phone Number [facility] [place] [address] * Basic Metabolic Panel (non-fasting) (11/02/2023 12:35 AM EDT) Glucose 125 65 - 199 mg/dL [facility] Comment:Diabetes: >=200 mg/d L plus symptoms Blood Urea Nitrogen 9 8 - 18 mg/dL [facility] Creatinine 0.83 0.70 - 1.20 mg/dL [facility] Sodium 136 135 - 145 mmol/L [facility] Potassium 3.6 3.5 - 5.0 mmol/L [facility] Comment: Please note: ??Patients with WBC >100,000 may have falsely elevated Potassium levels. ??For accurate Potassium quantification in these patients send serum separator tube (gold top) for subsequent determinations. ??Contact the Clinical Chemistry Laboratory if there are any questions. Chloride 102 98 - 107 mmol/L [facility] Carbon Dioxide 25 22 - 31 mmol/L [facility] Anion Gap 9 5 - 15 mmol/L [facility] Calcium 9.0 8.5 - 10.5 mg/dL [facility] Est Glomerular Filtration Rate 69 >=60 mL/min/1. 73 m?? [facility] Comment: This patient's estimated GFR [...] Lab Rosa Cornejo MD CHEMISTRY ORDERABLE S [facility] [place] [address] * Blood culture (11/02/2023 12:35 AM EDT) Blood Culture No growth at 5 days. [facility] Blood 11/02/2023 12:3 5 AM EDT 11/02/2023 1:55 AM EDT Comment:#2 site ukn Narrative Resulting Agency Comment Spec In Lab Rosa Hugo MD MICROBIOLOGY - BLO OD ORDERABLES Performing Organization Address City/[facility]/ZIP Co de Phone Number [facility] [place] [address] * Blood culture (11/02/2023 12:15 AM EDT) Blood Culture No growth at 5 days. [facility] Blood 11/02/2023 12:1 5 AM EDT 11/02/2023 1:54 AM EDT Comment:#1site unk Narrative Resulting Agency Comment Spec In Lab Rosa Hugo MD MICROBIOLOGY - BLO OD ORDERABLES Performing Organization Address [facility] Co de Phone Number [facility] [place] [address] * EKG 12 Lead (11/01/2023 10:10 PM EDT) Ventricular rate 139 BPM MUSE SYSTEM Atrial Rate 139 BPM MUSE SYSTEM P-R Interval 168 ms MUSE SYSTEM QRS Duration 84 ms MUSE SYSTEM Q-T Interval 286 ms MUSE SYSTEM QTC Calculated (Bezet) 435 ms MUSE SYSTEM Calculated R [place] -59 degrees MUSE SYSTEM Calculated T [place] -27 degrees MUSE SYSTEM INTERPRETATION Mid-RP tachycardia, [...] interpretation Confirmed by fellow MD Bowen Ashley ([id number]) on 11/04/2023 7:57:50 AM Confirmed by MD Carrillo Danette ([id number]) on 11/04/2023 4:32:03 PM MUSE SYSTEM 11/01/2023 10:1 0 PM EDT 11/04/2023 4:32 PM EDT Rosa Cornejo MD ECG ORDERABLES MUSE SYSTEM * (ABNORMAL) Hemogram (11/01/2023 10:06 PM EDT) White Blood Cell 10.4(H) 4.0 - 9.5 x10(3)/mc L [facility] Red Blood Cell 4.11 4.00 - 5.21 x10(6)/mc L [facility] Hemoglobin 14.0 11.7 - 15.5 g/dL [facility] Hematocrit 41.1 35.7 - 45.8 % [facility] Mean Cell Volume 100.0(H) 82.6 - 94.4 fL [facility] Mean Cell Hemoglobin 34.1(H) 27.1 - 32.0 pg [facility] Mean Cell Hemoglobin Concentration 34.1 31.7 - 35.0 g/dL [facility] Platelet 197 145 - 357 x10(3)/mc L [facility] RDW Standard Deviation 54.0(H) 37.0 - 46.0 [facility] RDW coefficient of variation 14.6(H) 11.5 - 14.1 % [facility] Mean Platelet Volume 11.2 7.6 - 12.9 [facility] NRBC% auto 0.0 % [facility] NRBC Absolute 0.000 0.000 - 0.000 x10(3)/mc L [facility] Blood 11/01/2023 10:0 6 PM EDT 11/01/2023 10:22 PM EDT Narrative Resulting Agency Comment Spec In Lab Rosa Hugo MD HEMATOLOGY ORDERAB LES [facility] [place] [id number] * POCT Glucose (11/01/2023 5:59 PM EDT) Glucose, POC 104 65 - 199 mg/dL [facility] Comment: Supplemental ranges: <140 mg/dL before meals <180 mg/dL all other times of the day Blood 11/01/2023 5:59 PM EDT 11/01/2023 5:59 PM EDT Rosa Hugo MD POINT OF CARE TEST ORDERABLES [facility] [place] [address] * POCT Glucose (11/01/2023 5:35 PM EDT) Glucose, POC 85 65 - 199 mg/dL [facility] Comment: Supplemental ranges: <140 mg/dL before meals <180 mg/dL all other times of the day Blood 11/01/2023 5:35 PM EDT 11/01/2023 5:35 PM EDT Rosa Hugo MD POINT OF CARE TEST ORDERABLES [facility] [place] [address] * EKG 12 Lead (11/01/2023 3:22 PM EDT) Ventricular rate 59 BPM MUSE SYSTEM Atrial Rate 59 BPM MUSE SYSTEM P-R Interval 220 ms MUSE SYSTEM QRS Duration 94 ms MUSE SYSTEM Q-T Interval 428 ms MUSE SYSTEM QTC Calculated (Bezet) 423 ms MUSE SYSTEM Calculated P [place] 76 degrees MUSE SYSTEM Calculated R [place] -50 degrees MUSE SYSTEM Calculated T [place] -59 degrees MUSE SYSTEM INTERPRETATION Sinus bradycardia [...] Modality Other Narrative 11/02/2023 4:57 PM EDT ?[facility] ? Cardiac Catheterization/Intervention Report ? Patient Name: Adin Santos. ? Procedure Date: 11/01/2023 ? A #: [id number] ? Primary Physician: Rosa Dewey I ? Case #: [id number] ? File Name: [id number] ? Catheterization Order Number: [id number] ? [facility] ? Final Report [place], [place] ? Patient Name: ? Adin M. Goguen ?ID#: ?[id number] ? : ?1940 ? Procedure Date: ? [...] was designated as ASA Class III. The [facility] clinical ?frailty scale is 4: Vulnerable. [...] Urgent. The indication for ?the cardiac cath rn visit is ACS greater than 24 hrs. [...] ??A premounted ? 3.50 x 15 mm [place] (RADHA) was deployed with a maximum ? [...] ? A premounted 3.50 x 15 mm [place] (RADHA) was deployed ? with a maximum [...] prior to arrival in the cardiac cath rn. ?Recommended anti-platelet/anti-thrombotic regimen: ?Continue aspirin 81 mg daily for indefinitely. ?Continue clopidogrel 75 mg daily for 12 months then stop. ?These recommendations are made at the time of the intervention. Patient ?and provider preferences or a changing clinical situation may require ?modification of this regimen. Consult [facility] for ?questions. ?The 1 year [...] Procedure Note Rosa Dewey MD - 12/12/2023 [facility] Cardiac C[facility]terization/Intervention Report Patient Name: Adin Santos Procedure Date: 11/01/2023 A #: [id number] Primary Physician: Rosa Dewey I Case #: [id number] File Name: [id number] Catheterization Order Number: [id number] [facility] FinalReport [place], [place] Patient Name: Adin Santos ID#:[id number] :1940 Procedure Date: November 01, 2023 Case [...] was Urgent. The indicationfor the cardiac cath rn visit is ACS greater than 24 hrs. [...] atmospheres. Apremounted 3.50 x 15 mm [place] (RADHA) was deployed with amaximum inflation pressure [...] The lesion was predilated with a 3.00mm [id number] MM balloon with a maximum inflation pressure of 14atmospheres. A premounted 3.50 x 15 mm [place] (RADHA) wasdeployed with a maximum inflation pressure [...] prior to arrival in the cardiac cath rn. Recommended anti-platelet/anti-thrombotic regimen: Continue aspirin 81 mg daily for indefinitely. Continue clopidogrel 75 mg daily for 12 months then stop. These recommendations are made at the time of the intervention.Patient and provider preferences or a changing clinical situation mayrequire modification of this regimen. Consult [facility] Cardiologyfor questions. The 1 year bleeding [...] POCT Glucose (11/01/2023 7:06 AM EDT) Pathologist [facility] [place] Glucose, POC 93 65 - 199 mg/dL [facility] Comment: Supplemental ranges: <140 mg/dL before meals <180 mg/dL all other times of the day Blood 11/01/2023 7:06 AM EDT 11/01/2023 7:06 AM EDT Jean Laboy MD POINT OF CARE TEST O RDERABLES [facility] [place] [address] * (ABNORMAL) Differential, Automated (11/01/2023 3:09 AM EDT) Neutrophil % 63.9 % [facility] Neutrophil Absolute 5.54 1.70 - 6.10 x10(3)/mc L [facility] Lymph % 20.0 % [facility] Lymphocytes Abs 1.7 0.9 - 3.2 x10(3)/mc L [facility] Monocyte % 11.9 % [facility] Monocyte Abs 1.0(H) 0.3 - 0.9 x10(3)/ L [facility] Eos % 3.2 % [facility] Eosinophils Abs 0.3 0.0 - 0.4 x10(3)/ L [facility] Basophil % 0.5 % [facility] Baso Absolute 0.0 0.0 - 0.1 x10(3)/ L [facility] Immature Gran % 0.50 % [facility] Comment: Immature granulocytes(IG's)percentage and absolute count will include metamyelocytes, myelocytes, and promyelocytes. Blood smears from CBCs yielding IG's will be scanned manually for concordance. If this scan disagrees with the automated IG or if promyelocytes are noted, a manual differential will be performed. Immature Gran Absolute 0.04 0.00 - 0.04 x10(3)/[facility] Blood 11/01/2023 3:09 AM EDT 11/01/2023 3:29 AM EDT Narrative Resulting Agency Comment Spec In Lab Qamar Gallardo MD HEMATOLOGY ORDERABLE S [facility] [place] [address] * (ABNORMAL) Hemogram (11/01/2023 3:09 AM EDT) White Blood Cell 8.7 4.0 - 9.5 x10(3)/ L [facility] Red Blood Cell 3.72(L) 4.00 - 5.21 x10(6)/[facility] Hemoglobin 12.5 11.7 - 15.5 g/dL [facility] Hematocrit 36.8 35.7 - 45.8 % [facility] Mean Cell Volume 98.9(H) 82.6 - 94.4 fL [facility] Mean Cell Hemoglobin 33.6(H) 27.1 - 32.0 pg [facility] Mean Cell Hemoglobin Concentration 34.0 31.7 - 35.0 g/dL [facility] Platelet 184 145 - 357 x10(3)/mc L [facility] RDW Standard Deviation 53.5(H) 37.0 - 46.0 fL [facility] RDW coefficient of variation 14.6(H) 11.5 - 14.1 % [facility] Mean Platelet Volume 11.3 7.6 - 12.9 fL [facility] NRBC% auto 0.0 % [facility] NRBC Absolute 0.000 0.000 - 0.000 x10(3)/mc L [facility] Blood 11/01/2023 3:09 AM EDT 11/01/2023 3:29 AM EDT Narrative Resulting Agency Comment Spec In Lab Qamar Gallardo MD HEMATOLOGY ORDERABLE S [facility] [place] [address] * Phosphorus (11/01/2023 3:09 AM EDT) Phosphorus 2.5 2.5 - 4.5 mg/dL [facility] Blood 11/01/2023 3:09 AM EDT 11/01/2023 3:29 AM EDT Narrative Resulting Agency Comment Spec In Lab Rosa Cornejo MD CHEMISTRY ORDERABLE S [facility] [place] [address] * Magnesium (11/01/2023 3:09 AM EDT) Magnesium 0.82 0.69 - 1.07 mmol/L [facility] Blood 11/01/2023 3:09 AM EDT 11/01/2023 3:29 AM EDT Narrative Resulting Agency Comment Spec In Lab Rosa Cornejo MD CHEMISTRY ORDERABLE S [facility] [place] [address] * (ABNORMAL) Basic Metabolic Panel (non-fasting) (11/01/2023 3:09 AM EDT) Glucose 100 65 - 199 mg/dL [facility] Comment:Diabetes: >=200 mg/d L plus symptoms Blood Urea Nitrogen 14 8 - 18 mg/dL [facility] Creatinine 0.83 0.70 - 1.20 mg/dL [facility] Sodium 137 135 - 145 mmol/L [facility] Potassium 3.4(L) 3.5 - 5.0 mmol/L [facility] Comment: Please note: ??Patients with WBC >100,000 may have falsely elevated Potassium levels. ??For accurate Potassium quantification in these patients send serum separator tube (gold top) for subsequent determinations. ??Contact the Clinical Chemistry Laboratory if there are any questions. Chloride 105 98 - 107 mmol/L [facility] Carbon Dioxide 24 22 - 31 mmol/L [facility] Anion Gap 8 5 - 15 mmol/L [facility] Calcium 8.6 8.5 - 10.5 mg/dL [facility] Est Glomerular Filtration Rate 69 >=60 mL/min/1. 73 m?? [facility] Comment: This patient's estimated GFR [...] MD CHEMISTRY ORDERABLE S Performing Organization Address City/[facility]/ZIP Co de Phone Number [facility] [place] [address] * (ABNORMAL) Troponin (10/31/2023 2:46 PM EDT) Troponin-T, High Sensitivity 544(H) <=14 ng/L [facility] Comment: This patient's troponin T [...] troponin value can be found in the [facility] Laboratory Test Catalog Troponin - [facility] Test Catalog Reference: Fourth [place] Definition of Myocardial Infarction. Journal of the [place] [employer] 2018;72:8664-2225 Blood 10/31/2023 2:46 PM EDT 10/31/2023 2:55 PM EDT Narrative Resulting Agency Comment Spec In Lab Jean Laboy MD CHEMISTRY ORDERABLES Performing Organization Address City/[facility]/ZIP Co de Phone Number [facility] [place] [address] * EKG 12 Lead (10/31/2023 1:07 PM EDT) Ventricular rate 54 BPM MUSE SYSTEM Atrial Rate 54 BPM MUSE SYSTEM P-R Interval 218 ms MUSE SYSTEM QRS Duration 92 ms MUSE SYSTEM Q-T Interval 540 ms MUSE SYSTEM QTC Calculated (Bezet) 512 ms MUSE SYSTEM Calculated P [place] 85 degrees MUSE SYSTEM Calculated R [place] -44 degrees MUSE SYSTEM Calculated T [place] -69 degrees MUSE SYSTEM INTERPRETATION Sinus bradycardia [...] Troponin (10/31/2023 11:37 AM EDT) Pathologist [facility] [place] Troponin-T, High Sensitivity 580(H) <=14 ng/L [facility] Comment: This patient's troponin T [...] troponin value can be found in the [facility] Test Catalog Troponin - [facility] Test Catalog Reference: Fourth [place] Definition of Myocardial Infarction. Journal of the [place] [employer] 2018;72:0695-1328 Blood 10/31/2023 11:3 7 AM EDT 10/31/2023 11:50 AM EDT Narrative Resulting Agency Comment Spec In Lab Rosa Cornejo MD CHEMISTRY ORDERABLE S [facility] [place] [address] * ECHO COMPLETE (10/31/2023 8:52 AM EDT) Anatomical Region Laterality Modality Cardiac Other 10/31/2023 7:57 AM EDT Narrative 10/31/2023 9:45 AM EDT [address] [place] [address] ? Echocardiogram Report Name: TOM ADIN Dorene ? Study Date: 10/31/2023 07:57 AMBP: 106/76 mmHg ? Patient Location: [address] : 1940 ? Height: 163 cm ? Account: [id number] Age: 83 yrs ? Weight: 76 kg Gender: Female ?BSA: 1.8 m2 Ordering Physician: ROSA DEWEY Referring Physician: OMAIRA GIRON Performed By: HAFSA Carmichael Reason For Study: STEMI Interpreting Fellow: Raymond Warren. Exam Location: [facility]. Interpretation Summary -The left ventricle is of [...] is no prior echocardiogram for comparison. Procedure Complete-94705. Satisfactory quality. There is sinus bradycardia. Left [...] Note Edgard Wang MD - 10/31/2023 [address] [place] [address] Echocardiogram Report Name: ADIN SANTOS Study Date: 407:57 AMBP: 106/76 mmHg Patient Location: [address] : 1940 Height: 163 cm Account: [id number] Age: 83 yrs Weight: 76 kg Gender: Female BSA: 1.8 m2 Ordering Physician: ROSA DEWEY Referring Physician: OMAIRA GIRON Performed By: HAFSA Carmichael Reason For Study: STEMI Interpreting Fellow: Raymond Warren. Exam Location: [facility]. Interpretation Summary -The left ventricle is of [...] is no prior echocardiogram for comparison. Procedure Complete-44643. Satisfactory quality. There is sinus bradycardia. Left [...] * (ABNORMAL) Troponin (10/31/2023 8:51 AM EDT) [facility] Troponin-T, High Sensitivity 571(H) <=14 ng/L [facility] Comment: This patient's troponin T [...] troponin value can be found in the [facility] Test Catalog Troponin - [facility] Test Catalog Reference: Fourth [place] Definition of Myocardial Infarction. Journal of the [place] [employer] 2018;72:1697-6274 Blood 10/31/2023 8:51 AM EDT 10/31/2023 9:12 AM EDT Narrative Resulting Agency Comment Spec In Lab Rosa Cornejo MD CHEMISTRY ORDERABLE S Performing Organization Address [facility] [place]/[facility] Co de Phone Number [facility] [place] [address] * CARDIAC CATHETERIZATION (10/31/2023 8:10 AM EDT) Anatomical Region Laterality Modality Other Narrative 11/07/2023 9:42 AM EDT ?[facility] ? Cardiac Catheter[facility]/Intervention Report ? Patient Name: Adin Santos ? Procedure Date: 10/30/2023 ? A #: [id number] ? Primary Physician: Rosa Dewey I ? Case #: [id number] ? File Name: [id number] ? Catheterization Order Number: [id number] ? [facility] ? Final Report [place], [place] ? Patient Name: ? Adin M. Goguen ?ID#: ?[id number] ? : ?1940 ? Procedure Date: ? [...] was designated as ASA Class III. The [facility] clinical frailty scale ?is 5: Mildly [...] Emergent. The indication for ?the cardiac cath rn visit is ACS less than or equal [...] A premounted 4.00 x 38 mm [place] (RADHA) was deployed ? with a maximum [...] prior to arrival in the cardiac cath rn. ?Recommended anti-platelet/anti-thrombotic regimen: ?Continue aspirin 81 mg daily for 12 months then stop. ?Continue clopidogrel 75 mg daily for indefinitely. ?These recommendations are made at the time of the intervention. Patient ?and provider preferences or a changing clinical situation may require ?modification of this regimen. Consult [facility] for ?questions. ? Conclusions: ?* [...] Procedure Note Rosa Dewey MD - 12/05/2023 [facility] Cardiac Catheterization/Intervention Report Patient Name: Adin Santos Procedure Date: 10/30/2023 A #: [id number] Primary Physician: Rosa Dewey I Case #: [id number] File Name: [id number] Catheterization Order Number: [id number] [facility] FinalReport [place], [place] Patient Name: Adin Santos ID#:[id number] :1940 Procedure Date: October 30, 2023 Case [...] was designated as ASA Class III. The [facility] clinical frailtyscale is 5: Mildly Frail. Diagnostic Tests: Electrocardiography: EKG was assessed by ECG. EKG was Abnormal. EKG showed STDeviation >= 0.5 mm, other abnormality and dynamic EKG changes. Medications Prior to Procedure: Aspirin, Angiotensin II Receptor Rodrick, Beta Rodrick andStatin. Indications for Diagnostic Cath: The priority of the diagnostic procedure was Emergent. Theindication for the cardiac cath rn visit is ACS less than or equal [...] The priority for the procedure was Emergent.The [facility] indication for the procedure was STEMI-Immediate [...] A premounted 4.00 x 38 mm Andrea Worcester (RADHA) wasdeployed with a maximum inflation pressure [...] prior to arrival in the cardiac cath rn. Recommended anti-platelet/anti-thrombotic regimen: Continue aspirin 81 mg daily for 12 months then stop. Continue clopidogrel 75 mg daily for indefinitely. These recommendations are made at the time of the intervention.Patient and provider preferences or a changing clinical situation mayrequire modification of this regimen. Consult [facility]iology[facility] questions. Conclusions: * Two vessel [...] * (ABNORMAL) Troponin (10/31/2023 4:21 AM EDT) [facility] Troponin-T, High Sensitivity 457(H) <=14 ng/L [facility] Comment: This patient's troponin T [...] troponin value can be found in the [facility] Test Catalog Troponin - [facility] Laboratory Test Catalog Reference: Fourth [place] Definition of Myocardial Infarction. Journal of the [place] [employer] 2018;72:2416-3336 Blood 10/31/2023 4:21 AM EDT 10/31/2023 4:30 AM EDT Narrative Resulting Agency Comment Spec In Lab Rosa Cornejo MD CHEMISTRY ORDERABLE S Performing Organization Address City/State/[facility] Co de Phone Number [facility] [place] [address] * (ABNORMAL) Differential, Automated (10/31/2023 3:05 AM EDT) Neutrophil % 71.7 % [facility] Neutrophil Absolute 8.21(H) 1.70 - 6.10 x10(3)/mc L [facility] Lymph % 16.9 % [facility] Lymphocytes Abs 1.9 0.9 - 3.2 x10(3)/mc L [facility] Monocyte % 9.4 % [facility] Monocyte Abs 1.1(H) 0.3 - 0.9 x10(3)/mc L [facility] Eos % 1.3 % [facility] Eosinophils Abs 0.2 0.0 - 0.4 x10(3)/mc L [facility] Basophil % 0.4 % [facility] Baso Absolute 0.0 0.0 - 0.1 x10(3)/mc L [facility] Immature Gran % 0.30 % [facility] Comment: Immature granulocytes(IG's)percentage and absolute count will include metamyelocytes, myelocytes, and promyelocytes. Blood smears from CBCs yielding IG's will be scanned manually for concordance. If this scan disagrees with the automated IG or if promyelocytes are noted, a manual differential will be performed. Immature Gran Absolute 0.04 0.00 - 0.04 x10(3)/ L [facility] Blood 10/31/2023 3:05 AM EDT 10/31/2023 3:13 AM EDT Narrative Resulting Agency Comment Spec In Lab Qamar Gallardo MD HEMATOLOGY ORDERABLE S [facility] [place] [address] * (ABNORMAL) Hemogram (10/31/2023 3:05 AM EDT) White Blood Cell 11.5(H) 4.0 - 9.5 x10(3)/ L [facility] Red Blood Cell 3.75(L) 4.00 - 5.21 x10(6)/mc L [facility] Hemoglobin 12.6 11.7 - 15.5 g/dL [facility] Hematocrit 37.1 35.7 - 45.8 % [facility] Mean Cell Volume 98.9(H) 82.6 - 94.4 fL [facility] Mean Cell Hemoglobin 33.6(H) 27.1 - 32.0 pg [facility] Mean Cell Hemoglobin Concentration 34.0 31.7 - 35.0 g/dL [facility] Platelet 206 145 - 357 x10(3)/mc L [facility] RDW Standard Deviation 53.4(H) 37.0 - 46.0 fL [facility] RDW coefficient of variation 14.6(H) 11.5 - 14.1 % [facility] Mean Platelet Volume 11.1 7.6 - 12.9 fL [facility] NRBC% auto 0.0 % [facility] NRBC Absolute 0.000 0.000 - 0.000 x10(3)/mc L [facility] Blood 10/31/2023 3:05 AM EDT 10/31/2023 3:13 AM EDT Narrative Resulting Agency Comment Spec In Lab Qamar Gallardo MD HEMATOLOGY ORDERABLE S Performing Organization Address [facility] de Phone Number [facility] [place] [address] * (ABNORMAL) APTT (10/31/2023 3:05 AM EDT) Partial Thromboplastin Time 67(H) 25 - 37 sec [facility] Comment: The PTT is NOT appropriate for heparin monitoring. Use the Anti-Xa level for heparin monitoring (HEP UFH) or LMWH monitoring (HEP LMW). A PTT less than 37 seconds generally indicates adequate hemostasis. Blood 10/31/2023 3:05 AM EDT 10/31/2023 3:13 AM EDT Narrative Resulting Agency Comment Spec In Lab Rosa Cornejo MD HEMATOLOGY ORDERABL ES Performing Organization Address [facility] de Phone Number [facility] [place] [address] * (ABNORMAL) Prothrombin Time (10/31/2023 3:05 AM EDT) Prothrombin Time 12.6(H) 9.4 - 12.5 sec [facility] International Normalization Ratio 1.1 [facility] Comment: An INR <2.0 indicates [...] Lab Rosa Cornejo MD HEMATOLOGY ORDERABL ES [facility] [place] [address] * (ABNORMAL) Differential, Automated (10/31/2023 1:37 AM EDT) Neutrophil % 71.1 % [facility] Neutrophil Absolute 7.53(H) 1.70 - 6.10 x10(3)/mc L [facility] Lymph % 18.0 % [facility] Lymphocytes Abs 1.9 0.9 - 3.2 x10(3)/ L [facility] Monocyte % 8.7 % [facility] Monocyte Abs 0.9 0.3 - 0.9 x10(3)/mc L [facility] Eos % 1.6 % [facility] Eosinophils Abs 0.2 0.0 - 0.4 x10(3)/mc L [facility] Basophil % 0.4 % [facility] Baso Absolute 0.0 0.0 - 0.1 x10(3)/mc L [facility] Immature Gran % 0.20 % [facility] Comment: Immature granulocytes(IG's)percentage and absolute count will include metamyelocytes, myelocytes, and promyelocytes. Blood smears from CBCs yielding IG's will be scanned manually for concordance. If this scan disagrees with the automated IG or if promyelocytes are noted, a manual differential will be performed. Immature Gran Absolute 0.02 0.00 - 0.04 x10(3)/mc L [facility] Blood 10/31/2023 1:37 AM EDT 10/31/2023 1:46 AM EDT Narrative Resulting Agency Comment Spec In Lab Qamar Gallardo MD HEMATOLOGY ORDERABLE S [facility] [place] [address] * (ABNORMAL) Hemogram (10/31/2023 1:37 AM EDT) White Blood Cell 10.6(H) 4.0 - 9.5 x10(3)/mc L [facility] Red Blood Cell 3.78(L) 4.00 - 5.21 x10(6)/mc L [facility] Hemoglobin 13.0 11.7 - 15.5 g/dL [facility] Hematocrit 37.9 35.7 - 45.8 % [facility] Mean Cell Volume 100.3(H) 82.6 - 94.4 fL [facility] Mean Cell Hemoglobin 34.4(H) 27.1 - 32.0 pg [facility] Mean Cell Hemoglobin Concentration 34.3 31.7 - 35.0 g/dL [facility] Platelet 204 145 - 357 x10(3)/mc L [facility] RDW Standard Deviation 54.3(H) 37.0 - 46.0 fL [facility] RDW coefficient of variation 14.6(H) 11.5 - 14.1 % [facility] Mean Platelet Volume 11.1 7.6 - 12.9 fL [facility] NRBC% auto 0.0 % [facility] NRBC Absolute 0.000 0.000 - 0.000 x10(3)/mc L [facility] Blood 10/31/2023 1:37 AM EDT 10/31/2023 1:46 AM EDT Narrative Resulting Agency Comment Spec In Lab Qamar Gallardo MD HEMATOLOGY ORDERABLE S [facility] [place] [address] * Phosphorus (10/31/2023 1:37 AM EDT) Phosphorus 3.2 2.5 - 4.5 mg/dL [facility] Blood 10/31/2023 1:37 AM EDT 10/31/2023 1:46 AM EDT Narrative Resulting Agency Comment Spec In Lab Rosa Cornejo MD CHEMISTRY ORDERABLE S Performing Organization Address City/[facility]/ZIP Co de Phone Number [facility] [place] [address] * Magnesium (10/31/2023 1:37 AM EDT) Magnesium 0.83 0.69 - 1.07 mmol/L [facility] Blood 10/31/2023 1:37 AM EDT 10/31/2023 1:46 AM EDT Narrative Resulting Agency Comment Spec In Lab Rosa Cornejo MD CHEMISTRY ORDERABLE S Performing Organization Address City/[facility]/ZIP Co de Phone Number [facility] [place] [address] * Basic Metabolic Panel (non-fasting) (10/31/2023 1:37 AM EDT) Glucose 114 65 - 199 mg/dL [facility] Comment:Diabetes: >=200 mg/d L plus symptoms Blood Urea Nitrogen 13 8 - 18 mg/dL [facility] Creatinine 0.81 0.70 - 1.20 mg/dL [facility] Sodium 140 135 - 145 mmol/L [facility] Potassium 3.9 3.5 - 5.0 mmol/L [facility] Comment: Please note: ??Patients with WBC >100,000 may have falsely elevated Potassium levels. ??For accurate Potassium quantification in these patients send serum separator tube (gold top) for subsequent determinations. ??Contact the Clinical Chemistry Laboratory if there are any questions. Chloride 107 98 - 107 mmol/L [facility] Carbon Dioxide 25 22 - 31 mmol/L [facility] Anion Gap 8 5 - 15 mmol/L [facility] Calcium 8.6 8.5 - 10.5 mg/dL [facility] Est Glomerular Filtration Rate 72 >=60 mL/min/1. 73 m?? [facility] Comment: This patient's estimated GFR [...] Lab Rosa Cornejo MD CHEMISTRY ORDERABLE S [facility] [place] [address] * (ABNORMAL) Troponin (10/31/2023 1:37 AM EDT) Troponin-T, High Sensitivity 329(H) <=14 ng/L [facility] Comment: This patient's troponin T [...] troponin value can be found in the [facility] Test Catalog Troponin - [facility] Test Catalog Reference: Fourth [place] Definition of Myocardial Infarction. Journal of the [place] [employer] 2018;72:3303-1767 Blood 10/31/2023 1:37 AM EDT 10/31/2023 1:46 AM EDT Narrative Resulting Agency Comment Spec In Lab Rosa Cornejo MD CHEMISTRY ORDERABLE S Performing Organization Address City/[facility]/[place] [address] * EKG 12 Lead (10/31/2023 1:20 AM EDT) Ventricular rate 52 BPM MUSE SYSTEM Atrial Rate 52 BPM MUSE SYSTEM P-R Interval 224 ms MUSE SYSTEM QRS Duration 108 ms MUSE SYSTEM Q-T Interval 544 ms MUSE SYSTEM QTC Calculated (Bezet) 505 ms MUSE SYSTEM Calculated P [place] 90 degrees MUSE SYSTEM Calculated R [place] -57 degrees MUSE SYSTEM Calculated T [place] -63 degrees MUSE SYSTEM INTERPRETATION Sinus bradycardia with 1st degree A-V block Pulmonary disease pattern Left anterior fascicular block Moderate voltage criteria for LVH, may be normal variant ( R in aVL , [place] product ) T wave abnormality, consider inferior [...] (Bezet) 497 ms MUSE SYSTEM Calculated P [place] 75 degrees MUSE SYSTEM Calculated R [place] -53 degrees MUSE SYSTEM Calculated T [place] -57 degrees MUSE SYSTEM INTERPRETATION Sinus bradycardia with 1st degree A-V block Left anterior fascicular block Moderate voltage criteria for LVH, may be normal variant ( R in aVL , [place] product ) T wave abnormality, consider inferior [...] View (10/30/2023 10:10 PM EDT) WORKSTATION ID [id number] DH RAD Anatomical Region Laterality Modality Chest [...] and low lung volumes. Findings similar to outpatient scheduler radiograph from CT 10/30/2023. Thank you for letting us participate in the care of this patient. ??If you are a health care provider and have any questions regarding this report, please contact the number below. ??For patients who have questions please contact the health rn patient care that requested your imaging first. ? Electronically signed by: Wilson Mccartney MD, [facility] ([phone]), at 10/30/2023 10:32 PM Narrative 10/30/2023 10:32 [...] and low lung volumes. Findings similar to outpatient scheduler radiograph from CT 10/30/2023. Thank you for letting us participate in the care of this patient. If youare a health care provider and have any questions regarding this report,please contact the number below. For patients who have questions please contactthe health rn patient care that requested your imaging first. Rosa Cornejo MD IMG DX ORDERABLES * Green Tube HOLD (10/30/2023 10:05 PM EDT) [facility] Green Hold Sample in lab. [facility] Blood Venous Draw / Unknown 10/30/2023 10:05 PM EDT 10/30/2023 10:13 PM EDT Qamar Gallardo MD CHEMISTRY ORDERABLES [facility] [place] [address] * (ABNORMAL) Differential, Automated (10/30/2023 10:05 PM EDT) Pathologist [facility] [place] Neutrophil % 76.6 % [facility] Neutrophil Absolute 6.94(H) 1.70 - 6.10 x10(3)/mc L [facility] Lymph % 15.4 % [facility] Lymphocytes Abs 1.4 0.9 - 3.2 x10(3)/mc L [facility] Monocyte % 6.1 % [facility] Monocyte Abs 0.6 0.3 - 0.9 x10(3)/mc L [facility] Eos % 1.1 % [facility] Eosinophils Abs 0.1 0.0 - 0.4 x10(3)/mc L [facility] Basophil % 0.6 % [facility] Baso Absolute 0.0 0.0 - 0.1 x10(3)/mc L [facility] Immature Gran % 0.20 % [facility] Comment: Immature granulocytes(IG's)percentage and absolute count will include metamyelocytes, myelocytes, and promyelocytes. Blood smears from CBCs yielding IG's will be scanned manually for concordance. If this scan disagrees with the automated IG or if promyelocytes are noted, a manual differential will be performed. Immature Gran Absolute 0.02 0.00 - 0.04 x10(3)/ L [facility] Blood 10/30/2023 10:0 5 PM EDT 10/30/2023 10:12 PM EDT Narrative Resulting Agency Comment Spec In Lab Qamar Gallardo MD HEMATOLOGY ORDERABLE S Performing Organization Address City/State/[facility] Co de Phone Number [facility] [place] [address] * (ABNORMAL) Hemogram (10/30/2023 10:05 PM EDT) White Blood Cell 9.0 4.0 - 9.5 x10(3)/ L [facility] Red Blood Cell 3.96(L) 4.00 - 5.21 x10(6)/mc L [facility] Hemoglobin 13.3 11.7 - 15.5 g/dL [facility] Hematocrit 39.1 35.7 - 45.8 % [facility] Mean Cell Volume 98.7(H) 82.6 - 94.4 fL [facility] Mean Cell Hemoglobin 33.6(H) 27.1 - 32.0 pg [facility] Mean Cell Hemoglobin Concentration 34.0 31.7 - 35.0 g/dL [facility] Platelet 211 145 - 357 x10(3)/mc L [facility] RDW Standard Deviation 53.6(H) 37.0 - 46.0 fL [facility] RDW coefficient of variation 14.6(H) 11.5 - 14.1 % [facility] Mean Platelet Volume 11.1 7.6 - 12.9 fL [facility] NRBC% auto 0.0 % [facility] NRBC Absolute 0.000 0.000 - 0.000 x10(3)/mc L [facility] Blood 10/30/2023 10:0 5 PM EDT 10/30/2023 10:12 PM EDT Narrative Resulting Agency Comment Spec In Lab Qamar Gallardo MD HEMATOLOGY ORDERABLE S Performing Organization Address City/[facility]/ZIP Co de Phone Number [facility] [place] [address] * Hemoglobin A1c (10/30/2023 10:05 PM EDT) Hemoglobin A1c 5.5 4.3 - 5.6 % [facility] Comment: Reference Range: 4.3 - [...] [id number] Estimated Average Glucose See note mg/dL [facility] Comment: Estimated Average Glucose not appropriate for patients over 70 years of age. Blood 10/30/2023 10:0 5 PM EDT 10/30/2023 10:12 PM EDT Narrative Resulting Agency Comment Spec In Lab Rosa Cornejo MD CHEMISTRY ORDERABLE S [facility] [place] [address] * Lipid Panel (Reflex Direct LDL) (10/30/2023 10:05 PM EDT) [facility] Cholesterol, Total 218 mg/dL D[facility] Comment: Desirable: ? <200 mg/dL Borderline High: 200-239 mg/dL Higher: ?>mz=201 mg/dL Triglyceride 46 mg/dL [facility] Comment: Normal: ?<150 mg/dL Borderline High: 150-199 mg/dL High: ?200-499 mg/dL Very High: ? >am=374 mg/dL HDL Cholesterol 64 mg/dL [facility] Comment: Females: High Risk: <50 mg/dL Males: High Risk: <40 mg/dL LDL Cholesterol 145 mg/dL [facility] Comment: Desirable: ? <100 mg/dL Above Desirable: 100-129 mg/dL Borderline High: 130-159 mg/dL High: ?160-189 mg/dL Very High: ? >dz=260 mg/dL Lipid Interpretation See Note [facility] Comment: It is important to [...] individuals with atherosclerotic cardiovascular disease (ASCVD)or LDL >ql=570 mg/dL, use a high-intensity statin (40-80 mg [...] MD CHEMISTRY ORDERABLE S Performing Organization Address [facility] Co de Phone Number [facility] [place] [address] * TSH [place] (10/30/2023 10:05 PM EDT) Thyroid Stimulating Hormone 3.35 0.27 - 4.20 mcIU/mL [facility] Comment: Reference Interval (mcIU/mL): Females: ??First Trimester: 0.23-3.88 ??Second Trimester: 0.22-3.90 ??Third Trimester: 0.44-4.66 Blood 10/30/2023 10:0 5 PM EDT 10/30/2023 10:12 PM EDT Narrative Resulting Agency Comment Spec In Lab Rosa Cornejo MD CHEMISTRY ORDERABLE S Performing Organization Address [facility]/ZIP Co de Phone Number [facility] [place] [address] * pro-Brain Natriuretic Peptide (10/30/2023 10:05 PM EDT) NT-proBNP 375 <=449 pg/mL [facility] Blood 10/30/2023 10:0 5 PM EDT 10/30/2023 10:12 PM EDT Narrative Resulting Agency Comment Spec In Lab Rosa Cornejo MD CHEMISTRY ORDERABLE S [facility] [place] [address] * (ABNORMAL) Comprehensive metabolic panel (non-fasting) (10/30/2023 10:05 PM EDT) Pathologist [facility] [place] Glucose 121 65 - 199 mg/dL [facility] Comment:Diabetes: >=200 mg/d L plus symptoms Blood Urea Nitrogen 14 8 - 18 mg/dL [facility] Creatinine 0.85 0.70 - 1.20 mg/dL [facility] Sodium 142 135 - 145 mmol/L [facility] Potassium 3.9 3.5 - 5.0 mmol/L [facility] Comment: Please note: ??Patients with WBC >100,000 may have falsely elevated Potassium levels. ??For accurate Potassium quantification in these patients send serum separator tube (gold top) for subsequent determinations. ??Contact the Clinical Chemistry Laboratory if there are any questions. Chloride 105 98 - 107 mmol/L [facility] Carbon Dioxide 27 22 - 31 mmol/L [facility] Anion Gap 10 5 - 15 mmol/L [facility] Calcium 8.8 8.5 - 10.5 mg/dL [facility] Protein, Total 6.5 6.1 - 8.0 g/dL [facility] Albumin 4.2 3.2 - 5.2 g/dL [facility] Aspartate Aminotransferase 36(H) 0 - 30 unit/L [facility] Alanine Aminotransferase 17 0 - 30 unit/L [facility] Alkaline Phosphatase 54 35 - 105 unit/L [facility] Bilirubin, Total 0.5 0.2 - 1.3 mg/dL [facility] Est Glomerular Filtration Rate 68 >=60 mL/min/1. 73 m?? [facility] Comment: This patient's estimated GFR [...] MD CHEMISTRY ORDERABLE S Performing Organization Address City/[facility]/ZIP Co de Phone Number [facility] [place] [address] * Phosphorus (10/30/2023 10:05 PM EDT) Phosphorus 3.3 2.5 - 4.5 mg/dL [facility] Blood 10/30/2023 10:0 5 PM EDT 10/30/2023 10:12 PM EDT Narrative Resulting Agency Comment Spec In Lab Rosa Cornejo MD CHEMISTRY ORDERABLE S [facility] [place] [address] * Magnesium (10/30/2023 10:05 PM EDT) Magnesium 0.86 0.69 - 1.07 mmol/L [facility] Blood 10/30/2023 10:0 5 PM EDT 10/30/2023 10:12 PM EDT Narrative Resulting Agency Comment Spec In Lab Rosa Cornejo MD CHEMISTRY ORDERABLE S Performing Organization Address City/[facility]/ZIP Co de Phone Number [facility] [place] [address] * (ABNORMAL) Troponin (10/30/2023 10:05 PM EDT) Troponin-T, High Sensitivity 214(H) <=14 ng/L [facility] Comment: This patient's troponin T [...] troponin value can be found in the [facility] Test Catalog Troponin - [facility] Test Catalog Reference: Fourth [place] Definition of Myocardial Infarction. Journal of the [place] [employer] 2018;72:2896-9217 Blood 10/30/2023 10:0 5 PM EDT 10/30/2023 10:12 PM EDT Narrative Resulting Agency Comment Spec In Lab Rosa Cornejo MD CHEMISTRY ORDERABLE S Performing Organization Address City/[facility]/ZIP Co de Phone Number [facility] [place] [address] * EKG 12 Lead (10/30/2023 8:21 PM EDT) Ventricular rate 49 BPM MUSE SYSTEM Atrial Rate 49 BPM MUSE SYSTEM P-R Interval 230 ms MUSE SYSTEM QRS Duration 96 ms MUSE SYSTEM Q-T Interval 526 ms MUSE SYSTEM QTC Calculated (Bezet) 475 ms MUSE SYSTEM Calculated P [place] 98 degrees MUSE SYSTEM Calculated R [place] -48 degrees MUSE SYSTEM Calculated T [place] -51 degrees MUSE SYSTEM INTERPRETATION Sinus bradycardia with 1st degree A-V block Incomplete right bundle branch block Left anterior fascicular block Moderate voltage criteria for LVH, may be normal variant ( R in aVL , [place] product ) T wave abnormality, consider inferior [...] Provider: Mary Sweeney RN)2012 (Given - Provider: Daniac Shipley RN) 0820 (Given - Provider: Lucretia [...] Transfer to a Procedural area)1548 ([facility] Unhold - Provider: Admin Adt) fentaNYL (pf) [...] Transfer to a Procedural area)1548 ([facility] Unhold - Provider: Admin Adt) midazolam (pf) [...] documented as of this encounter Care Teams [id number]/[id number] Tank Driver Relationship Specialty Start Date End Date Rosie Mathews MD [address] [place] [id number] PCP - General Family Medicine 11/25/17 11/23/23 documented as of this encounter
--- OUTSIDE RECORDS SUMMARY | 2024-02-15 10:34 | XMS_ITS | Encounter Summary ---
Author Organization [facility] Address [facility] [place] [address] Care Team Providers Care Operater Name Role Phone Rosie Mathews MD Primary Care Provider [phone] Encounter Details Date Type Department Care Team (Late st Contact Info) Description 10/30/2023 [place] [address] Jose Lee MD [facility] [address] [place] [address] Social History Tobacco Use Types Packs/Day Years [...] Date: 10/30/2023 Referring Provider: Bree Patient Location: [facility] HPI: 83 yoF w/ PMHx of [...] in the patient condition. Jose Lee MD Still Pump Operator documented in this encounter Plan of Treatment Upcoming Encounters Date Type Department Care Team (Late st Contact Info) Description 03/29/2024 11:20 AM EDT Office Visit Cardiology at [address] [place] [address] Izaiah Meyer MD [facility] [place] [address] documented as of this encounter Visit Diagnoses Not on filedocumented in this encounter Care Teams Operater Relationship Specialty Start Date End Date Rosie Mathews MD [address] [place] [address] PCP - General Family Medicine 11/25/17 11/23/23 documented as of this encounter
--- OUTSIDE RECORDS SUMMARY | 2024-02-15 10:34 | XMS_ITS | Encounter Summary ---
Author Organization [facility] Address [facility] [place] [address] Care Team Providers Care General Science Teacher Name Role Phone Rosie Mathews MD Primary Care Provider [phone] Reason for Visit * Reason Comments Skin Lesion * Consultation (Routine) - Closed Specialty Diagnoses / Procedures Referred By John hunt Referred To Contact Dermatology Diagnoses facial skin lesion Procedures pt would like to be seen PRADEEP Rosie Mathews MD [address] [place] [address] [facility] Dermatology [address] [place] [address] Referral ID Status Reason Start Date Expiration Date V isits Requested Visits Authorized [id number] Closed Consult, Test & Treat Connection Center 10/25/2017 10/25/2018 1 1 Encounter Details Date Type Department Care Team (Late st Contact Info) Description 11/25/2017 4:30 PM EDT Office Visit Dermatology at [facility] [address] [place] [address] Call, Radu Go MD [facility] [address] [place] [address] Seborrheic keratosis; Fibrous papule of [...] PATIENT NOTE Date of service: 11/25/2017 Lyla Goodrcih : 1940, 77 y.o. Chief Complaint: Chief [...] for and in the presence of Radu oTm MD I performed the above scribed service and agree with the accuracy of the documentation in this encounter. Reviewed and signed by Radu Tom MD Resident in Dermatology [facility] Patient seen in conjunction with staff endoscopy nurse: Terri Hale MD Section of Dermatology [facility] * Terri Hale MD - 11/25/2017 4:30 [...] AM EDT Office Visit Cardiology at [address] [address] Izaiah Meyer MD [facility] [place] [address] documented as of this encounter Visit Diagnoses Diagnosis Seborrheic keratosis Other seborrheic keratosis Fibrous papule of nose Benign neoplasm of skin of other and unspecified parts of face Skin tags, multiple acquired documented in this encounter Care Teams General Science Teacher Relationship Specialty Start Date End Date Rosie Mathews MD [address] [place] [address] PCP - General Family Medicine 11/25/17 11/23/23 documented as of this encounter
--- OUTSIDE RECORDS SUMMARY | 2024-02-15 10:34 | XMS_ITS | Encounter Summary ---
Author Organization [facility] Address [address] [place] [address] Care Team Providers Care Medical Concierge Name Role Phone Kirsten Bateman MD Primary Care Provider [phone] Reason for Visit * Reason Comments Hearing Loss tinnitus Encounter Details Date Type Department Care Team (Latest Contact Info) Description 01/15/2010 10:10 EDT Office Visit [address] [address] Unknown, ProviderMD Ray Farooq MD [address] [place] [address] [address] Sensorineural hearing loss, bilateral; Subjective [...] Ray Farooq MD - 01/28/2010 1108 EDT [place] [facility] PROGRESS/FOLLOWUP NOTE - 01/15/2010 CHIEF COMPLAINT: [...] MD - Ray Farooq [place] [facility] [place]: SM Doc ID: [id number] Ext Doc ID: [id number] cc: Kirsten Bateman MD * Ray Farooq [...] tinnitus documented in this encounter Care Teams Medical Concierge Relationship Specialty Start Date End Date iKrsten Bateman MD [address] [place] [address] PCP - General 01/13/10 documented as of this encounter
--- OUTSIDE RECORDS SUMMARY | 2024-02-15 10:34 | XMS_ITS | Encounter Summary ---
Author Organization [facility] Address [address] [place] [address] Care Team Providers Care Rec Therapist Name Role Phone Unavailable Primary Care Provider Unavailabl e Encounter Details Date Type Department Care Team (Late st Contact Info) Description 01/10/2008 Before PRISM Converted Visit (Maple) [facility] - Maple conversion [address] [place] [address] Ray Farooq MD [address] [place] [address] Social History Tobacco Use Types Packs/Day Years Used Date Smoking Tobacco: Never Assessed Sex and Gender Information Value Date Recorded Sex Assigned at Not on file Gender Identity Not on file Sexual Orientation Not on file documented as of this encounter Consult Notes * Ray Farooq MD - 03/21/2009 3712 EDT [facility] - 01/10/2008 Kirsten Bateman MD [facility] [address] [place] [address] Bateman: Chief complaint: Hearing loss. History of present illness: Uuuqe-mobqn-jvli-old female with along history of bilateral hearing [...] is a nonsmoker, nondrinker. She lives in [place]. Review of systems is significant for allergies, [...] Tosin Farooq MD - [facility] Job ID: [id number] Doc ID: [id number] cc: Kirsten Bateman MD cc: Kirsten Bateman MD documented in this encounter Plan of Treatment Not on file documented as of this encounter Visit Diagnoses Not on filedocumented in this encounter
--- OUTSIDE RECORDS SUMMARY | 2024-02-15 10:34 | XMS_ITS | Encounter Summary ---
Author Organization [facility] Address [address] [place] [address] Care Team Providers Care Lead Sales Consultant Name Role Phone Kirsten Bateman MD Primary Care Provider [phone] Encounter Details Date Type Department Care Team (Late st Contact Info) Description 01/27/2021 Lab Requisition [facility] Pathology & Laboratory Medicine - [facility] [address] [place] [address] Outr Resulting Lab, Provider Social History Tobacco [...] Outr Resulting Lab MICROBIOLOGY - GENERAL ORDERABLES [facility] [address] [place] [address] * COVID-19 TESTING (01/26/2021 16:45 EDT) COVID-19 rt-PCR Result Negative Negative 01/28/2021 13:31 EDT [facility] Comment: This test [...] developed and its performance characteristics determined by [facility]. It has not been cleared or [...] based on the [facility] COVID-19 Emergency Use Authorization (EUA) assay, with minor modification as defined by the FDA Performed on the froodies [employer] 7 Pro RT-PCR System. Performing Lab [facility] Lab 01/28/2021 13:31 EDT [facility] Swab 01/26/2021 16:4 5 EDT 01/27/2021 15:46 EDT Provider Outr Resulting Lab MICROBIOLOGY - GENERAL ORDERABLES [facility] [address] [place] [address] documented in this encounter Visit Diagnoses Not on filedocumented in this encounter Care Teams Lead Sales Consultant Relationship Specialty Start Date End Date Kirsten Bateman MD [address] [place] [address] PCP - General 01/13/10 documented as of this encounter
--- OUTSIDE RECORDS SUMMARY | 2024-02-15 10:34 | XMS_ITS | Encounter Summary ---
Author Organization [facility] Address [facility] [place] [address] Care Team Providers Care Gas Fitter Apprentice Name Role Phone Rosie Mathews MD Primary Care Provider [phone] Encounter Details Date Type Department Care Team (Late st Contact Info) Description 10/30/2023 [place] [address] Jose Lee MD [facility] [place] [address] Social History Tobacco Use Types Packs/Day Years Used Date Smoking Tobacco: Former Smokeless Tobacco: Never Alcohol Use Standard Drinks/Week Comments Not Currently 0 (1 standard drink = 0.6 oz pur e alcohol) [facility] Utilities Answer Date Recorded In the past 12 months has th e [employer] gas, oil, or water [employer] threatened to shut off services in your [...] AM EDT Office Visit Cardiology at [address] [address] Izaiah Meyer MD [facility] [place] [address] documented as of this encounter Visit Diagnoses Not on filedocumented in this encounter Additional Health Concerns Infection Onset Date Last Indicated Resolved Time Rule Out Respiratory 11/02/2023 11/02/2023 024 12:22 PM EDT Rule Out COVID-19 11/02/2023 11/02/2023 11/02/2023 12:22 PM EDT documented as of this encounter Care Teams Gas Fitter Apprentice Relationship Specialty Start Date End Date Rosie Mathews MD [address] [place] [address] PCP - General Family Medicine 11/25/17 11/23/23 documented as of this encounter
--- OUTSIDE RECORDS SUMMARY | 2024-02-15 10:34 | XMS_ITS | Encounter Summary ---
Author Organization [facility] Address [address] [place] [address] Care Team Providers Care Project Production Engineer Name Role Phone Kirsten Bateman MD Primary Care Provider [phone] Encounter Details Date Type Department Care Team (Late st Contact Info) Description 01/14/2010 Abstract Used for ABSTRACTING Data [phone] Kirsten Bateman MD [address] [place] [address] Social History Tobacco Use Types [...] mouth. added in this encounter Care Teams Project Production Engineer Relationship Specialty Start Date End Date Kirsten Bateman MD [address] [place] [phone] PCP - General 01/13/10 documented as of this encounter
--- OUTSIDE RECORDS SUMMARY | 2024-02-15 10:34 | XMS_ITS | Referral Summary ---
Author Organization [facility] Address [address] [place] [address] Care Team Providers Care Steel Chipper Name Role Phone Kirsten Bateman MD Primary Care Provider [phone] Allergies Active Allergy Reactions Criticality Noted Date [...] of Treatment Not on file Care Teams Steel Chipper Relationship Specialty Start Date End Date Kirsten Bateman MD [address] [place] [address] [facility] - General 01/13/10
--- OUTSIDE RECORDS SUMMARY | 2024-02-15 10:34 | XMS_ITS | Encounter Summary ---
Author Organization [facility] Address [facility] [place] [address] Care Team Providers Care Mica Washer Gluer Name Role Phone Rosie Mathews MD Primary Care Provider [phone] Reason for Visit * Consultation (Routine) - Closed Specialty Diagnoses / Procedures Referred By John hunt Referred To Contact Audiology Diagnoses Hearing assessment and treatment options Karson John MD [address] [place] [address] [facility] [address] [place] [phone] Referral ID Status Reason Start Date Expiration Date V isits Requested Visits Authorized [id number] Closed Consult, Test & Treat Connection Center 11/22/2017 11/22/2018 1 1 Encounter Details Date Type Department Care Team (Latest Contact Info) Description 11/30/2017 3:15 PM EDT Office Visit Audiology at [address] [address] Georgette Onofre AUD [facility] [place] [address] Sensorineural hearing loss, bilateral; Bilateral [...] [facility] in-the-ear hearingaids nine years ago in [place], [place]. She stated she continues to experience [...] tone audiogram. SNR loss is the increased kyxehn-xv-dylbq ratio required by an individual to understand [...] not hesitate to contact this Section at [phone] if there are questions regarding this report or its recommendations. Romeo Becker [place] [id number] Attachment: audiogram CC: MD Karson Loo MD Laurmarco a Catherine [address] [facility] [address] [place] [phone] documented in this encounter Plan of Treatment Upcoming Encounters Date Type Department Care Team (Late st Contact Info) Description 03/29/2024 11:20 AM EDT Office Visit Cardiology at [address] [place] [address] Izaiah Meyer MD [facility] [place] [address] documented as of this encounter Procedures Procedure [...] tinnitus documented in this encounter Care Teams Mica Washer Gluer Relationship Specialty Start Date End Date Rosie Mathews MD [address] [place] [address] PCP - General Family Medicine 11/25/17 11/23/23 documented as of this encounter
--- OUTSIDE RECORDS SUMMARY | 2024-02-15 10:34 | XMS_ITS | Encounter Summary ---
Author Organization [facility] [place] [address] Care Team Providers Care Diesel Powerplant Mechanic Name Role Phone Rosie Mathews MD Primary Care Provider [phone] Reason for Visit * Auth/Cert (Routine) Specialty Diagnoses / Procedures Referred By Contac t Referred To Contact Diagnoses Unstable angina Chest pain NSTEMI Procedures CARDIAC CATHETERIZATION Rosa Dewey MD [facility] [place] [address] [facility] Referral ID Status Reason Start Date Expiration Date Visits Re quested Visits Authorized [id number] 1 1 Encounter Details Date Type Department Care Team (Late st Contact Info) Description 10/30/2023 4:25 PM EDT - 10/30/2023 5:27 PM EDT Surgery Induction [place] [address] Rosa Dewey MD [facility] [address] [place], [place] [id number] CARDIAC CATHETERIZATION Social History Tobacco Use Types [...] for hypertension and hyperlipidemia who presented to [facility] as a transfer from [facility] as a possible STEMI alert with acute onset chest pain. The patient reports that her symptoms initially began on Tuesday when she was walking to [facility] and experienced bilateral arm heaviness while walking with no other symptoms. Then, this afternoon shereports developing bilateral achy shoulder pain and nonradiating substernal left-sided chest pressure that was 7/10 in severity [facility]. The patient denies any associated fevers, chills, [...] on repeat, her JAMIE resolved. Cardiology at [facility] was consulted for transfer; the patient was loaded with aspirin 324 mg and ticagrelor 180 mg, started on a heparin drip, and given nitroglycerin with improvement in chest pain. Upon arrival to [facility], the patient was taken directly to the Induction Coordination Power Engineer. Two lesions were discovered: one in the prox RCA (felt to almost be a PROFESSIONAL DEVELOPMENT MANAGER but they were able to wire, [...] administered prior to arrival in the laborer pullet farm. Recommended anti-platelet/anti-thrombotic regimen: Continue aspirin 81 mg [...] and low lung volumes. Findings similar to form stripper radiograph from CT 10/30/2023. Pending Studies and [...] 10:40 AM Izaiah Meyer MD Cardiology at [place] Arrive at: [facility] [address] [phone] Future Orders Complete By Expires Referral to Cardiac Rehab [[id number] Custom] As directed Process Instructions: If no progress note charted, please enter Clinical details in comments. Scheduling Instructions: Questions: My question or request is: STEMI. Cardiac rehab at [facility]. Referral to Home Health [[id number] Custom] As directed Process Instructions: If no progress note charted, please enter Clinical details in comments. Scheduling Instructions: Comments: Please evaluate Adin Santos for admission to Home Health. [address] [place] [address] [place] [phone] (home) Date of : 1940 Inpatient DOCUMENTATION FOR VNA SERVICES (INCLUDING THOSE PATIENTS WITH MEDICARE COVERAGE REQUIRING HOME VNA SERVICES AND/OR HOSPICE SERVICES) PATIENT'S LOCATION: Adin Santos [address] [facility] [phone] (home) Cell: Telephone Information: Security Assistant's Name: self In discussion with the attending physician, it is certified that this patient is under their care and that they, or a Nurse Practitioner, Clinical Nurse specialist or Physician Visitor Services Coordinator who is working directly with them, [...] regarding health issues HOME HEALTH CARE AGENCY: [facility] [address] [place] [address] START OF CARE: within 24-48 hours of [...] Rosie Mathews MD [address] / [facility] [address] . All A agencies which cover the [...] MD / Dr. Masood Pierson [address] [place] [address] 11/09/23 1:55 PM arrival for 2:10 PM appointment Bell Spinner: Izaiah Meyer MD [address] [place] [address] , 11/24/2023 10:40 AM Your Inpatient Medical Team at [facility] Name(s) of your inpatient provider(s): Attending physician: Rosa Hugo MD Resident physicians: Emile Robles MD; Elmer Tamez MD If you have non-emergent questions, prior to your follow-up visit call: Tuesday-Tuesday between the hours of 8AM-5PM please call the Cardiology Clinic [phone] to speak with a nurse. All other hours please call the Hospital Leather Finisher [phone] and ask to speak to the medical assistant cardiology on-call. Your Primary Care Provider Rosie Mathews MD [phone] For questions regarding this document or issues relating to this hospitalization on the Medical Service, please contact your inpatient physician through the [facility] Leather Finisher . Issues afterhours and on weekends will be handled by the Bell Spinner staff on-call. Associated attestation - Rosa Hugo [...] MD / Dr. Masood Pierson [address] [place] [address] 11/09/23 1:55 PM arrival for 2:10 PM appointment Bell Spinner: Izaiah Meyer MD [address] [place] [address] , 11/24/2023 10:40 AM Your Inpatient Medical Team at [facility] Name(s) of your inpatient provider(s): Attending physician: Rosa Hugo MD Resident physicians: Emile Robles MD; Elmer Tamez MD If you have non-emergent questions, prior to your follow-up visit call: Tuesday-Tuesday between the hours of 8AM-5PM please call the Cardiology Clinic [phone] to speak with a nurse. All other hours please call the Hospital Leather Finisher [phone] and ask to speak to the medical assistant cardiology on-call. Your Primary Care Provider Rosie Mathews MD [phone] documented in this encounter Medications at Time [...] for hypertension and hyperlipidemia who presented to [facility] as a transfer from [facility] [...] for hypertension and hyperlipidemia who presented to [facility] as a transfer from [facility] [...] Resident on Cardiology Service Cardiology S1 (Pager [phone]) Note written in conjunction with Claudio Perla [facility] Medical Student, MS3 Associated [...] Nirmala Webb - 11/01/2023 11:25 AM EDT Healthcare Marketer Encounter Note Patient Name: Adin Santos : [id number] MR#: [id number] Admit Date: 10/30/2023 5:11 PM Hospital Day 2 days Narrative: Self initiated visit to patient for Spiritual support in a regular unit rounds. Assessment: Patient is in the bathroom at the time of this visit. Not a good time for Director Client visit. Intervention and Outcome: An attempted visit [...] for hypertension and hyperlipidemia who presented to [facility] as a transfer from [facility] [...] and low lung volumes. Findings similar to form stripper radiograph from CT 10/30/2023. Scheduled Medications: [MAR [...] for hypertension and hyperlipidemia who presented to [facility] as a transfer from [facility] [...] Resident on Cardiology Service Cardiology S1 (Pager [phone]) Note written in conjunction with Claudio Perla [facility] Medical Student, MS3 Associated [...] for hypertension and hyperlipidemia who presented to [facility] as a transfer from [facility] as a possible STEMI alert with acute onset chest pain. Active Problems: Active Hospital Problems Diagnosis Unstable angina Resolved Hospital Problems No resolved problems to display. 24 hr events: - Cath'd yesterday with lesion in the proximal RCA (initially thought it was PROFESSIONAL DEVELOPMENT MANAGER but they were ableto wire, balloon [...] and low lung volumes. Findings similar to form stripper radiograph from CT 10/30/2023. TTE (10/30): Interpretation [...] for hypertension and hyperlipidemia who presented to [facility] as a transfer from [facility] [...] Resident on Cardiology Service Cardiology S1 (Pager [phone]) Note written in conjunction with Claudio Perla [facility] Medical Student, MS3 Associated [...] PCP: Rosie Mathews MD PCP phone number: [phone] Date of Admission: 10/30/2023 ( Hospital Day 0 days ) Attending:Rosa Cornejo MD ID: Adin Santos is a 83 y.o. female PMH significant for hypertension and hyperlipidemia who presented to [facility] as a transfer from [facility] as a possible STEMI alert with acute onset chest pain. The patient reports that her symptoms initially began on Tuesday when she was walking to [facility] and experienced bilateral arm heaviness while walking with no other symptoms. Then, this afternoon shereports developing bilateral achy shoulder pain and nonradiating substernal left-sided chest pressure that was 7/10 in severity after [facility]. The patient denies any associated fevers, chills, [...] on repeat, her JAMIE resolved. Cardiology at [facility] was consulted for transfer; the patient was loaded with aspirin 324 mg and ticagrelor 180 mg, started on a heparin drip, and given nitroglycerin with improvement in chest pain. Upon arrival to [facility], the patient was taken directly to the Induction Coordination Power Engineer. 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 Findings similar to form stripper radiograph from CT 10/30/2023. Assessment & Plan: Adin Santos is a 83 y.o. female PMH significant for hypertension and hyperlipidemia who presented to [facility] as a transfer from [facility] [...] HTN HLD transferred with chest from [facility]. BP 217/68, HR [address] [...] information for follow-up Home Health & Hospice, [place] [address] TANESHA BOYCE confirmed with Brittany CARVAJAL that they will see the patient within 24-48 hours of discharge for start of care. Transportation: family or friend will provide Wheelchair van/Ambulance? No Functional status prior to admission: Assistive Equipment Home Environment: Others in the home: alone. Current Living Arrangements: home/apartment/condo. Accessibility Concerns:1st floor apartment in fdc community; handicapped accessible. Current Functional Ability: Assistive [...] in the room. Electrolytes replaced, see MAR. laborer shaft sinking sites remained C/D/I with baseline ecchymosis unchanged. Pt complained of back pain, lidocaine patch given. Right IV infiltrated during infusion, patient is marked with sharpie, IV removed. See flowsheet for I+O's and safety rounding. Patient is able to make needs known and call capps within reach. PLAN MOVING FORWARD: Monitor Tele, control BP, monitor laborer pullet farm sites, D/C Planning INDIVIDUALIZED FALL PREVENTION INTERVENTIONS: [...] an outpatient cardiac rehabilitation program at [facility] was discussed. Patient agrees to a referral [...] above on RA. PT went to laborer pullet farm today. Left fem site oozed throughout shift, [...] FORWARD: Monitor Tele, control BP, monitor laborer pullet farm sites, D/C Planning INDIVIDUALIZED FALL PREVENTION INTERVENTIONS: [...] From: Transfer from another hospital Location: [facility] Reason for Hospitalization: chest pain Covid Vaccination Status: 1st, 2nd & booster Past medical History: No past medical history on file. Hospitalizations Within the Past 30 Days: no previous admission in last 30 days Current Decision-Making Capacity: Self If AD's have not been completed the following surrogate would be surrogate decision maker per [place] decision making law. (Only good for 180 days) Any patient receiving care in [place] must abide by [place] law. The hierarchy for surrogate decision making [...] Arrangements: home/apartment/condo. Accessibility Concerns:1st floor apartment in fdc community; handicapped accessible. In the last 12 [...] has the electric, gas, oil, or water [employer] threatened to shut off services in your [...] toilet seat Home Address confirmed as: [address] [facility] [address] Social & Family Supports: All names listed below confirmed with patient as current and correct Extended Emergency Contact Information Primary Emergency Contact: Iris Downing Address: [address] [place], [place] [address] [place] [address] Mobile Relation: Child Secondary Emergency Contact: Karen More Address: [address] [facility] [address] [facility] [place] Relation: Child Current Care Provided by: self Provides Primary Care For: no one Caregiver if needed: child(emmanuel), adult Quality of Family relationships: involved, supportive Community Resources being provided currently: other (see comments) (receives [facility] services at home (1xweekly)) Behavioral Health History: [...] Insurance: N/A Prescription Coverage: Yes Preferred Pharmacy: [email or web address] [place], [place] - [address] [place] [address] [place] [address] Status: Patient is a : No Primary Care Provider listed: Masood Pierson MD [phone] Patient/Caregiver Goals of Treatment: home when MR Potential Needs for Transition of Care: home health care Agency Referrals: Not Applicable I have met with the patient to: discuss discharge planning needs. provide the [facility], Office of Care Management letter from the Strainer Tender pertaining to rehab referrals. provide a letter describing our affiliations within the [facility] and educate about their right to choose where referrals are sent. provide a list of Home Health Agencies / Durable Medical Equipment vendors which serve their preferred geographic area. provided patient with CMS Star Quality Rating handout. They have requested referrals to: [facility] [address] [place] [address] Note routed to a Regulation Supervisor who will communicate referrals to facilities and [...] results. PO hydralazine added for BP control. laborer shaft sinking sites remain C/D/I, ecchymosis unchanged th roughout shift. See flowsheet for I+O's and safety rounding. Patient is able to make needs known and call capps within reach. PLAN MOVING FORWARD: Monitor Tele, control CP and BP, NPO at MD for cath, monitor laborer pullet farm sites, D/C Planning INDIVIDUALIZED FALL PREVENTION INTERVENTIONS: [...] AM EDT Office Visit Cardiology at [address] [address] Izaiah Meyer MD [facility] [place] [address] Scheduled Referrals Name Type Priority Associated Diagnoses [...] 3:46 AM EDT) Neutrophil % 63.3 % [facility] Neutrophil Absolute 5.28 1.70 - 6.10 x10(3)/mc L [facility] Lymph % 15.2 % [facility] Lymphocytes Abs 1.3 0.9 - 3.2 x10(3)/mc L [facility] Monocyte % 16.9 % [facility] Monocyte Abs 1.4(H) 0.3 - 0.9 x10(3)/mc L [facility] [...] HEMATOLOGY ORDERABLE S [facility] [place] [address] * (ABNORMAL) Hemogram (11/03/2023 3:46 AM EDT) White Blood Cell 8.3 4.0 - 9.5 x10(3)/[facility] Red Blood Cell 3.77(L) 4.00 - 5.21 x10(6)/[facility] Hemoglobin 13.1 11.7 - 15.5 g/dL [...] Platelet 181 145 - 357 x10(3)/ L [facility] RDW Standard Deviation 54.7(H) [...] MD HEMATOLOGY ORDERABLE S Performing Organization Address City/[facility]/ZIP Co de Phone Number [facility] [place] [address] * Phosphorus (11/03/2023 3:46 AM EDT) Phosphorus 3.2 2.5 - 4.5 mg/dL [facility] Comment:result rechecked-KS Blood 11/03/2023 3:46 AM EDT 11/03/2023 4:11 AM EDT Narrative Resulting Agency Comment Spec In Lab Rosa Cornejo MD CHEMISTRY ORDERABLE S Performing Organization Address [facility]/ZIP Co de Phone Number [facility] [place] [address] * Magnesium (11/03/2023 3:46 AM EDT) Magnesium 0.90 0.69 - 1.07 mmol/L [facility] Blood 11/03/2023 3:46 AM EDT 11/03/2023 4:11 AM EDT Narrative Resulting Agency Comment Spec In Lab Rosa Cornejo MD CHEMISTRY ORDERABLE S Performing Organization Address City/[facility]/ZIP Co de Phone Number [facility] [place] [address] * (ABNORMAL) Basic Metabolic Panel (non-fasting) (11/03/2023 [...] CHEMISTRY ORDERABLE S [facility] [place] [address] * EKG 12 Lead (11/02/2023 12:44 PM EDT) Ventricular rate 83 BPM MUSE SYSTEM Atrial Rate 83 BPM MUSE SYSTEM P-R Interval 216 ms MUSE SYSTEM QRS Duration 90 ms MUSE SYSTEM Q-T Interval 384 ms MUSE SYSTEM QTC Calculated (Bezet) 451 ms MUSE SYSTEM Calculated P Hoskins 92 degrees MUSE SYSTEM Calculated R Hoskins -51 degrees MUSE SYSTEM Calculated T Hoskins -33 degrees MUSE SYSTEM INTERPRETATION Sinus rhythm with 1st degree A-V block with Premature atrial complexes Left axis deviation Moderate voltage criteria for LVH, may be normal variant ( R in aVL , [place] product ) Anterolatera l infarct (cited on [...] Cells Raw Data, Urine 10(H) <=4 /HPF [facility] Hyaline Casts, Urine 2 0 - 2 /LPF [facility] Comment: Interpret results with caution, microscopic results are from suboptimal specimen volume Clean Catch Urine 11/02/2023 11:40 AM EDT 11/02/2023 12:05 PM EDT Narrative Resulting Agency Comment Spec In Lab Elmer Tamez MD URINE ORDERABLES [facility] [place] [address] * (ABNORMAL) Urinalysis with reflex Culture (11/02/2023 [...] HOSPITAL LABORATORY Leukocytes, Urine Dipstick Small(A) Negative [facility] Appearance, Urine Dipstick Cloudy(A) Clear [facility] Specific [place] Urine Automated >=1.030(A) 1.005 - 1.030 [facility] Color, Urine Dipstick Dark Yellow Yellow [facility] Reflex to Culture Yes [facility] Clean Catch Urine 11/02/2023 11:40 AM EDT 11/02/2023 12:04 PM EDT Narrative Resulting Agency Comment Spec In Lab Rosa Hugo MD URINE ORDERABLES [facility] [place] [address] * Respiratory Panel PCR (11/02/2023 10:15 AM EDT) Respiratory Panel Source DENITRATOR OPERATOR Swab [facility] Respiratory Panel PCR Negative Negative [facility] Comment: Respiratory Panels are performed on the [employer], using multiplexed PCR nucleic acid detection. ??Negative [...] performed using the Bio[employer] Respiratory Panel 2.1 (wesync.tv) as authorized by the FDA issued Emergency Use Authorization (EUA). This panel also tests for multiple other viral and bacterial pathogens. This assay is intended for In-vitro Diagnostic (IVD) use with nasopharyngeal swabs in viral transport media. The assay is performed based on the instructions for use and additional guidance provided by the FDA. Testing is performed in laboratories within the [facility], each of which is certified under the [...] fact sheets at the following FDA website: https://www.fda.gov/medical-devices/htqqchtiidq-qmbmoaw-2917-gntnc-90-uyatwykkb- use-a hvbqosrzobtxm-ztvafqo-hjmdauj/xrstp-aavqzsltbab-aklc Human Metapneumovirus Not Detected Not Detected [facility] [...] GEN ERAL ORDERABLES [facility] [place] [address] * XR Chest One View (11/02/2023 2:51 AM EDT) WORKSTATION ID [id number] DH RAD Anatomical Region Laterality Modality Chest [...] who have questions please contact the health coronary care unit nurse that requested your imaging first. ? Electronically signed by: Omaira Tran MD, [facility] ([phone]), at 11/02/2023 4:56 AM Narrative 11/02/2023 4:56 [...] patients who have questions please contactthe health coronary care unit nurse that requested your imaging first. Electronically signed by: Omaira Tran MD, [facility]([phone]), at 11/02/2023 4:56 AM Rosa Hugo MD IMG DX ORDERABLES * (ABNORMAL) Differential, Automated (11/02/2023 12:35 AM EDT) Neutrophil % 76.5 % [facility] Neutrophil Absolute 7.69(H) 1.70 [...] Absolute 0.05(H) 0.00 - 0.04 x10(3)/ L [facility] Blood 11/02/2023 12:3 5 AM EDT 11/02/2023 12:43 AM EDT Narrative Resulting Agency Comment Spec In Lab Qamar Gallardo MD HEMATOLOGY ORDERABLE S [facility] [place] [address] * (ABNORMAL) Hemogram (11/02/2023 12:35 AM EDT) [...] Platelet Volume 11.4 7.6 - 12.9 fL [facility] NRBC% auto 0.0 % [facility] NRBC Absolute 0.000 0.000 - 0.000 x10(3)/mc L [facility] Blood 11/02/2023 12:3 5 AM EDT 11/02/2023 12:43 AM EDT Narrative Resulting Agency Comment Spec In Lab Qamar Gallardo MD HEMATOLOGY ORDERABLE S [facility] [place] [address] * (ABNORMAL) Phosphorus (11/02/2023 12:35 AM EDT) Phosphorus 1.6(L) 2.5 - 4.5 mg/dL [facility] Blood 11/02/2023 12:3 5 AM EDT 11/02/2023 12:43 AM EDT Narrative Resulting Agency Comment Spec In Lab Rosa Cornejo MD CHEMISTRY ORDERABLE S Performing Organization Address [facility]/ZIP Co de Phone Number [facility] [place] [address] * Magnesium (11/02/2023 12:35 AM EDT) Magnesium 0.87 0.69 - 1.07 mmol/L [facility] Blood 11/02/2023 12:3 5 AM EDT 11/02/2023 12:43 AM EDT Narrative Resulting Agency Comment Spec In Lab Rosa Cornejo MD CHEMISTRY ORDERABLE S Performing Organization Address City/[facility]/ZIP Co de Phone Number [facility] [place] [address] * Basic Metabolic Panel (non-fasting) (11/02/2023 12:35 [...] CHEMISTRY ORDERABLE S [facility] [place] [address] * Blood culture (11/02/2023 12:35 AM EDT) Blood Culture No growth at 5 days. [facility] Blood 11/02/2023 12:3 5 AM EDT 11/02/2023 1:55 AM EDT Comment:#2 site ukn Narrative Resulting Agency Comment Spec In Lab Rosa Hugo MD MICROBIOLOGY - BLO OD ORDERABLES Performing Organization Address [facility] Co de Phone Number [facility] [place] [address] * Blood culture (11/02/2023 12:15 AM EDT) Blood Culture No growth at 5 days. [facility] Blood 11/02/2023 12:1 5 AM EDT 11/02/2023 1:54 AM EDT Comment:#1site unk Narrative Resulting Agency Comment Spec In Lab Rosa Hugo MD MICROBIOLOGY - BLO OD ORDERABLES Performing Organization Address [facility] Co de Phone Number [facility] [place] [address] * EKG 12 Lead (11/01/2023 10:10 PM EDT) Ventricular rate 139 BPM MUSE SYSTEM Atrial Rate 139 BPM MUSE SYSTEM P-R Interval 168 ms MUSE SYSTEM QRS Duration 84 ms MUSE SYSTEM Q-T Interval 286 ms MUSE SYSTEM QTC Calculated (Bezet) 435 ms MUSE SYSTEM Calculated R Hoskins -59 degrees MUSE SYSTEM Calculated T Hoskins -27 degrees MUSE SYSTEM INTERPRETATION Mid-RP tachycardia, consider sinus tachycardia or SVT Left axis deviation Moderate voltage criteria for LVH, may be normal variant ( R in aVL , [place] product ) Inferior infarct (cited on or before 01-NOV-2023) Anterolateral infarct (cited on or before 01-NOV-2023) Abnormal ECG When compared with ECG of 01-NOV-2023 15:22, Vent. rate Although rate has increased Serial changes of Anterior infarct Present I personally reviewed the tracing and edited the fellows interpretation Confirmed by fellow MD Bowen Ashley ([id number]) on 11/04/2023 7:57:50 AM Confirmed by MD Carrillo Danette ([id number]) on 11/04/2023 4:32:03 PM MUSE SYSTEM 11/01/2023 10:1 0 PM EDT 11/04/2023 4:32 PM EDT Rosa Cornejo MD ECG ORDERABLES MUSE SYSTEM * (ABNORMAL) Hemogram (11/01/2023 10:06 PM EDT) White Blood Cell 10.4(H) 4.0 - 9.5 x10(3)/[facility] Red Blood Cell 4.11 4.00 - 5.21 x10(6)/[facility] Hemoglobin 14.0 11.7 - 15.5 g/dL [...] Platelet 197 145 - 357 x10(3)/ L [facility] RDW Standard Deviation 54.0(H) 37.0 - 46.0 fL [facility] RDW coefficient of variation 14.6(H) 11.5 - 14.1 % [facility] Mean Platelet Volume 11.2 7.6 - 12.9 fL [facility] NRBC% auto 0.0 % [facility] NRBC Absolute 0.000 0.000 - 0.000 x10(3)/ L [facility] Blood 11/01/2023 10:0 6 PM EDT 11/01/2023 10:22 PM EDT Narrative Resulting Agency Comment Spec In Lab Rosa Hugo MD HEMATOLOGY ORDERAB LES Performing Organization Address City/[facility]/ZIP Co de Phone Number [facility] [place] [place] [address] * POCT Glucose (11/01/2023 5:59 PM EDT) [facility] Signature Glucose, POC 104 65 - 199 mg/dL [facility] Comment: Supplemental ranges: <140 mg/dL before meals <180 mg/dL all other times of the day Blood 11/01/2023 5:59 PM EDT 11/01/2023 5:59 PM EDT Rsoa Hugo MD POINT OF CARE TEST ORDERABLES Performing Organization Address [facility] Co de Phone Number [facility] [place] [place] [address] * POCT Glucose (11/01/2023 5:35 PM EDT) [facility] Glucose, POC 85 65 - 199 mg/dL [facility] Comment: Supplemental ranges: <140 mg/dL before meals <180 mg/dL all other times of the day Blood 11/01/2023 5:35 PM EDT 11/01/2023 5:35 PM EDT Rosa Hugo MD POINT OF CARE TEST ORDERABLES Performing Organization Address City/[facility] Co de Phone Number [facility] [place] [place] [address] * EKG 12 Lead (11/01/2023 3:22 PM EDT) Ventricular rate 59 BPM MUSE SYSTEM Atrial Rate 59 BPM MUSE SYSTEM P-R Interval 220 ms MUSE SYSTEM QRS Duration 94 ms MUSE SYSTEM Q-T Interval 428 ms MUSE SYSTEM QTC Calculated (Bezet) 423 ms MUSE SYSTEM Calculated P Hoskins 76 degrees MUSE SYSTEM Calculated R Hoskins -50 degrees MUSE SYSTEM Calculated T Hoskins -59 degrees MUSE SYSTEM INTERPRETATION Sinus bradycardia [...] Modality Other Narrative 11/02/2023 4:57 PM EDT ?[facility] ? Cardiac Catheterization/Intervention Report ? Patient Name: Adin Santos ? Procedure Date: 11/01/2023 ? A #: [id number] ? Primary Physician: Rosa Dewey I ? Case #: [id number] ? File Name: [id number] ? Catheterization Order Number: [id number] ? [facility] ? Final Report [place], [place] ? Patient Name: ? Adin M. Goguen ?ID#: ?[id number] ? : ?1940 ? Procedure Date: ? [...] was Urgent. The indication for ?the laborer pullet farm visit is ACS greater than 24 hrs. [...] ??A premounted ? 3.50 x 15 mm Point Comfort Evans (RADHA) was deployed with a maximum ? [...] A premounted 3.50 x 15 mm Andrea Evans (RADHA) was deployed ? with a maximum [...] administered prior to arrival in the laborer pullet farm. ?Recommended anti-platelet/anti-thrombotic regimen: ?Continue aspirin 81 mg daily for indefinitely. ?Continue clopidogrel 75 mg daily for 12 months then stop. ?These recommendations are made at the time of the intervention. Patient ?and provider preferences or a changing clinical situation may require ?modification of this regimen. Consult [facility] Interventional Cardiology for ?questions. [...] sedation nurse. ??Case time = 01:06. ?Dr. oRsa Dewey M.D. performed the coronary angiography, stent ?insertion-coronary and IVUS # coronary. ? Rosa Cornejo Chaudry, M.D. ? Electronically Signed by: Rosa Cornejo Otto, M.D. ? Report Finalized: 11/02/2023 ??16:51 ? Report Last Ammended: 12/12/2023 ??10:28 ? Procedure Note Rosa Dewey MD - 12/12/2023 [facility] Cardiac Catheterization/Intervention Report Patient Name: Adin Santos Procedure Date: 11/01/2023 A #: [id number] Primary Physician: Rosa Dewey I Case #: [id number] File Name: [id number] Catheterization Order Number: [id number] [facility] FinalReport [place], [place] Patient Name: Adin Santos ID#:[id number] :1940 Procedure Date: November 01, 2023 Case [...] was designated as ASA Class III. [facility] 4: Vulnerable. Diagnostic Tests: Prior Coronary Angiography: LV ejection fraction within 6 months is 65%. Electrocardiography: EKG was assessed by ECG. EKG was Abnormal. EKG showed other abnormality. Medications Prior to Procedure: Aspirin, Angiotensin II Receptor Rodrick and Statin. Indications for Diagnostic Cath: The priority of the diagnostic procedure was Urgent. The indicationfor the laborer pullet farm visit is ACS greater than 24 hrs. [...] 14 atmospheres. Apremounted 3.50 x 15 mm Point Comfort Evans (RADHA) was deployed with amaximum inflation pressure [...] The lesion was predilated with a 3.00mm [id number] MM balloon with a maximum inflation pressure of 14atmospheres. A premounted 3.50 x 15 mm Andrea Evans (RADHA) wasdeployed with a maximum inflation pressure [...] administered prior to arrival in the laborer pullet farm. Recommended anti-platelet/anti-thrombotic regimen: Continue aspirin 81 mg daily for indefinitely. Continue clopidogrel 75 mg daily for 12 months then stop. These recommendations are made at the time of the intervention.Patient and provider preferences or a changing clinical situation mayrequire modification of this regimen. Consult [facility] Interventional Cardiologyfor questions. The [...] TEST O RDERABLES [facility] [place] [address] * (ABNORMAL) Differential, Automated (11/01/2023 3:09 AM EDT) Pathologist [facility] Neutrophil % 63.9 % [facility] Neutrophil Absolute 5.54 1.70 [...] Abs 0.3 0.0 - 0.4 x10(3)/ L [facility] Basophil % [...] MD HEMATOLOGY ORDERABLE S Performing Organization Address City/State/[facility] Co de Phone Number [facility] [place] [place] [address] * (ABNORMAL) Hemogram (11/01/2023 3:09 AM EDT) [...] Platelet 184 145 - 357 x10(3)/mc L [facility] [...] MD HEMATOLOGY ORDERABLE S Performing Organization Address City/[facility]/ZIP Co de Phone Number [facility] [place] [address] * Phosphorus (11/01/2023 3:09 AM EDT) Phosphorus 2.5 2.5 - 4.5 mg/dL [facility] Blood 11/01/2023 3:09 AM EDT 11/01/2023 3:29 AM EDT Narrative Resulting Agency Comment Spec In Lab Rosa Cornejo MD CHEMISTRY ORDERABLE S Performing Organization Address City/[facility]/ZIP Co de Phone Number [facility] [place] [place] [address] * Magnesium (11/01/2023 3:09 AM EDT) Magnesium 0.82 0.69 - 1.07 mmol/L [facility] Blood 11/01/2023 3:09 AM EDT 11/01/2023 3:29 AM EDT Narrative Resulting Agency Comment Spec In Lab Rosa Cornejo MD CHEMISTRY ORDERABLE S [facility] [place] [address] * (ABNORMAL) Basic Metabolic Panel (non-fasting) (11/01/2023 [...] CHEMISTRY ORDERABLE S [facility] [place] [place] [address] * (ABNORMAL) Troponin (10/31/2023 2:46 PM EDT) [...] can be found in the [facility] Laboratory Test Catalog Troponin - [facility] Laboratory Test Catalog Reference: Fourth [place] Definition of Myocardial Infarction. Journal of the [employer] College [employer] 2018;72:0475-3637 Blood 10/31/2023 2:46 PM EDT 10/31/2023 2:55 PM EDT Narrative Resulting Agency Comment Spec In Lab Jean Laboy MD CHEMISTRY ORDERABLES Performing Organization Address [facility] Co de Phone Number [facility] [place] [address] * EKG 12 Lead (10/31/2023 1:07 PM EDT) Ventricular rate 54 BPM MUSE SYSTEM Atrial Rate 54 BPM MUSE SYSTEM P-R Interval 218 ms MUSE SYSTEM QRS Duration 92 ms MUSE SYSTEM Q-T Interval 540 ms MUSE SYSTEM QTC Calculated (Bezet) 512 ms MUSE SYSTEM Calculated P Hoskins 85 degrees MUSE SYSTEM Calculated R Hoskins -44 degrees MUSE SYSTEM Calculated T Hoskins -69 degrees MUSE SYSTEM INTERPRETATION Sinus bradycardia with 1st degree A-V block Left axis deviation Moderate voltage criteria for LVH, may be normal variant ( R in aVL , [place] product ) T wave abnormality, consider inferolateral ischemia Prolonged QT Abnormal ECG When compared with ECG of 30-OCT-2023 20:21, Incomplete right bundle branch block is no longer Present Confirmed by MD NEFTALI, CHIDI ([id number]) on 10/31/2023 2:28:46 PM MUSE SYSTEM 10/31/2023 1:07 PM EDT 10/31/2023 2:28 PM EDT Rosa Cornejo MD ECG ORDERABLES Performing Organization Address [facility] Co de Phone Number MUSE SYSTEM * (ABNORMAL) Troponin (10/31/2023 11:37 AM EDT) Pathologist [facility] Troponin-T, High Sensitivity 580(H) <=14 ng/L [facility] [...] can be found in the [facility] Laboratory Test Catalog Troponin - [facility] Laboratory Test Catalog Reference: Fourth [place] Definition of Myocardial Infarction. Journal of the [employer] College [employer] 2018;72:3154-1319 Blood 10/31/2023 11:3 7 AM EDT 10/31/2023 11:50 AM EDT Narrative Resulting Agency Comment Spec In Lab Rosa Cornejo MD CHEMISTRY ORDERABLE S [facility] [place] [address] * ECHO COMPLETE (10/31/2023 8:52 AM EDT) Anatomical Region Laterality Modality Cardiac Other 10/31/2023 7:57 AM EDT Narrative 10/31/2023 9:45 AM EDT [address] [place] [address] ? Echocardiogram Report Name: ADIN SANTOS ? Study Date: 10/31/2023 07:57 AMBP: 106/76 mmHg ? Patient Location: [facility] 0[facility] A : 1940 ? Height: 163 cm ? Account: [id number] Age: 83 yrs ? Weight: 76 kg Gender: Female ?BSA: 1.8 m2 Ordering Physician: ROSA DEWEY Referring Physician: OMAIRA GIRON Performed By: HAFSA Carmichael Reason For Study: STEMI Interpreting Fellow: Raymond Warren. Exam Location: [facility]. Interpretation Summary -The left ventricle is of [...] is no prior echocardiogram for comparison. Procedure Complete-43921. Satisfactory quality. There is sinus bradycardia. Left [...] Note Edgard Wang MD - 10/31/2023 [address] [place] [id number] Echocardiogram Report Name: TREY SANTOSMarco A Catherine Study Date: 407:57 AMBP: 106/76 mmHg Patient Location: [address] : 1940 Height: 163 cm Account: [id number] Age: 83 yrs Weight: 76 kg Gender: Female BSA: 1.8 m2 Ordering Physician: ROSA DEWEY Referring Physician: OMAIRA GIRON Performed By: HAFSA Carmichael Reason For Study: STEMI Interpreting Fellow: Raymond Warren. Exam Location: [facility]. Interpretation Summary -The left ventricle is of [...] is no prior echocardiogram for comparison. Procedure Complete-35669. Satisfactory quality. There is sinus bradycardia. Left [...] can be found in the [facility] Laboratory Test Catalog Troponin - [facility] Laboratory Test Catalog Reference: Fourth Castle[place] Definition of Myocardial Infarction. Journal of the [employer] College [employer]iology 2018;72:5631-4386 Blood 10/31/2023 8:51 AM EDT 10/31/2023 9:12 AM EDT Narrative Resulting Agency Comment Spec In Lab Rosa Cornejo MD CHEMISTRY ORDERABLE S Performing Organization Address City/State/[facility] Co de Phone Number [facility] [place] [address] * CARDIAC CATHETERIZATION (10/31/2023 8:10 AM EDT) Anatomical Region Laterality Modality Other Narrative 11/07/2023 9:42 AM EDT ?[facility] ? Cardiac Catheterization/Intervention Report ? Patient Name: Adin Santos M. ? Procedure Date: 10/30/2023 ? A #: [id number] ? Primary Physician: Rosa Dewey I ? Case #: [id number] ? File Name: [id number] ? Catheterization Order Number: [id number] ? [facility] ? Final Report [place], [place] ? Patient Name: ? Adin M. Goguen ?ID#: ?[id number] ? : ?1940 ? Procedure Date: ? October 30, 2023 ? Case #: ? [id number] ? Room: ? 5 ? Case Physician: [...] was Emergent. The indication for ?the laborer pullet farm visit is ACS less than or equal [...] ? A premounted 4.00 x 38 mm Point Comfort Evans (RADHA) was deployed ? with a maximum [...] administered prior to arrival in the laborer pullet farm. ?Recommended anti-platelet/anti-thrombotic regimen: ?Continue aspirin 81 mg daily for 12 months then stop. ?Continue clopidogrel 75 mg daily for indefinitely. ?These recommendations are made at the time of the intervention. Patient ?and provider preferences or a changing clinical situation may require ?modification of this regimen. Consult [facility] Interventional Cardiology for ?questions. [...] was present for the entire procedure. ?Dr. Roas Dewey M.D. was present during the moderate [...] Procedure Note oRsa Dewey MD - 12/05/2023 [facility] Cardiac Catheterization/Intervention Report Patient Name: Adin Santos Procedure Date: 10/30/2023 A #: [id number] Primary Physician: Rosa Dewey I Case #: [id number] File Name: [id number] Catheterization Order Number: [id number] [facility] FinalReport [place], [place] Patient Name: Adin Santos ID#:[id number] :1940 Procedure Date: October 30, 2023 Case [...] was designated as ASA Class III. The [facility] clinical frailtyscale is 5: Mildly Frail. Diagnostic Tests: Electrocardiography: EKG was assessed by ECG. EKG was Abnormal. EKG showed STDeviation >= 0.5 mm, other abnormality and dynamic EKG changes. Medications Prior to Procedure: Aspirin, Angiotensin II Receptor Rodrick, Beta Rodrick andStatin. Indications for Diagnostic Cath: The priority of the diagnostic procedure was Emergent. Theindication for the laborer pullet farm visit is ACS less than or equal [...] A premounted 4.00 x 38 mm Andrea Evans (RADHA) wasdeployed with a maximum inflation pressure [...] administered prior to arrival in the laborer pullet farm. Recommended anti-platelet/anti-thrombotic regimen: Continue aspirin 81 mg daily for 12 months then stop. Continue clopidogrel 75 mg daily for indefinitely. These recommendations are made at the time of the intervention.Patient and provider preferences or a changing clinical situation mayrequire modification of this regimen. Consult [facility] Interventional Cardiologyfor questions. Conclusions: [...] Hospital Troponin-T, High Sensitivity 457(H) <=14 ng/L [facility] [...] can be found in the [facility] Laboratory Test Catalog Troponin - [facility] Laboratory Test Catalog Reference: Fourth Castleberry Definition of Myocardial Infarction. Journal of the [place] College [employer]iology 2018;72:3828-6293 Blood 10/31/2023 4:21 AM EDT 10/31/2023 4:30 AM EDT Narrative Resulting Agency Comment Spec In Lab Rosa Cornejo MD CHEMISTRY ORDERABLE S Performing Organization Address City/State/[facility] Co de Phone Number [facility] [place] [address] * (ABNORMAL) Differential, Automated (10/31/2023 3:05 AM EDT) Neutrophil % 71.7 % [facility] Neutrophil Absolute 8.21(H) 1.70 [...] MD HEMATOLOGY ORDERABLE S Performing Organization Address City/State/[facility] Co de Phone Number [facility] [place] [address] * (ABNORMAL) Hemogram (10/31/2023 3:05 AM EDT) White Blood Cell 11.5(H) 4.0 - 9.5 x10(3)/ L [facility] Red Blood Cell 3.75(L) 4.00 - 5.21 x10(6)/ L [facility] Hemoglobin 12.6 11.7 - [...] Standard Deviation 53.4(H) 37.0 - 46.0 fL [facility] [...] Organization Address [facility] Co de Phone Number [facility] [place] [address] * (ABNORMAL) APTT (10/31/2023 3:05 AM EDT) [...] Organization Address [facility] Co de Phone Number [facility] [place] [address] * (ABNORMAL) Prothrombin Time (10/31/2023 3:05 AM [...] Lab Rosa Cornejo MD HEMATOLOGY ORDERABL ES [facility] [place] [address] * (ABNORMAL) Differential, Automated (10/31/2023 1:37 AM EDT) Neutrophil % 71.1 % [facility] Neutrophil Absolute 7.53(H) 1.70 - 6.10 x10(3)/mc L [facility] Lymph % 18.0 % [facility] Lymphocytes Abs 1.9 0.9 - 3.2 x10(3)/mc L [facility] Monocyte % 8.7 % [facility] Monocyte Abs 0.9 0.3 - 0.9 x10(3)/mc L [facility] Eos % 1.6 % [...] HEMATOLOGY ORDERABLE S [facility] [place] [address] * (ABNORMAL) Hemogram (10/31/2023 1:37 AM EDT) [...] Platelet 204 145 - 357 x10(3)/mc L [facility] [...] HEMATOLOGY ORDERABLE S [facility] [place] [address] * Phosphorus (10/31/2023 1:37 AM EDT) [facility] Phosphorus 3.2 2.5 - 4.5 mg/dL [facility] Blood 10/31/2023 1:37 AM EDT 10/31/2023 1:46 AM EDT Narrative Resulting Agency Comment Spec In Lab Rosa Cornejo MD CHEMISTRY ORDERABLE S Performing Organization Address City/[facility]/ZIP Co de Phone Number [facility] [place] [address] * Magnesium (10/31/2023 1:37 AM EDT) [facility] Magnesium 0.83 0.69 - 1.07 mmol/L [facility] Blood 10/31/2023 1:37 AM EDT 10/31/2023 1:46 AM EDT Narrative Resulting Agency Comment Spec In Lab Rosa Cornejo MD CHEMISTRY ORDERABLE S Performing Organization Address City/[facility]/ZIP Co de Phone Number [facility] [place] [address] * Basic Metabolic Panel (non-fasting) (10/31/2023 1:37 AM EDT) [facility] Glucose 114 65 - 199 mg/dL [facility] [...] CHEMISTRY ORDERABLE S [facility] [place] [address] * (ABNORMAL) Troponin (10/31/2023 1:37 AM EDT) [...] can be found in the [facility] Laboratory Test Catalog Troponin - [facility] Laboratory Test Catalog Reference: Fourth [place] Definition of Myocardial Infarction. Journal of the [place] College [employer]iology 2018;72:3183-0797 Blood 10/31/2023 1:37 AM EDT 10/31/2023 1:46 AM EDT Narrative Resulting Agency Comment Spec In Lab Rosa Cornejo MD CHEMISTRY ORDERABLE S Performing Organization Address City/State/[facility] [place] [address] * EKG 12 Lead (10/31/2023 1:20 AM EDT) Ventricular rate 52 BPM MUSE SYSTEM Atrial Rate 52 BPM MUSE SYSTEM P-R Interval 224 ms MUSE SYSTEM QRS Duration 108 ms MUSE SYSTEM Q-T Interval 544 ms MUSE SYSTEM QTC Calculated (Bezet) 505 ms MUSE SYSTEM Calculated P Hoskins 90 degrees MUSE SYSTEM Calculated R Hoskins -57 degrees MUSE SYSTEM Calculated T Hoskins -63 degrees MUSE SYSTEM INTERPRETATION Sinus bradycardia [...] Cornejo MD ECG ORDERABLES Performing Organization Address [facility] de Phone Number MUSE SYSTEM * EKG 12 Lead (10/30/2023 10:40 PM EDT) Ventricular rate 55 BPM MUSE SYSTEM Atrial Rate 55 BPM MUSE SYSTEM P-R Interval 232 ms MUSE SYSTEM QRS Duration 102 ms MUSE SYSTEM Q-T Interval 520 ms MUSE SYSTEM QTC Calculated (Bezet) 497 ms MUSE SYSTEM Calculated P Hoskins 75 degrees MUSE SYSTEM Calculated R Hoskins -53 degrees MUSE SYSTEM Calculated T Hoskins -57 degrees MUSE SYSTEM INTERPRETATION Sinus bradycardia with 1st degree A-V block Left anterior fascicular block Moderate voltage criteria for LVH, may be normal variant ( R in aVL , [place] product ) T wave abnormality, consider inferior ischemia T wave abnormality, consider anterolateral ischemia Prolonged QT Abnormal ECG When compared with ECG of 30-OCT-2023 20:21, Incomplete right bundle branch block is no longer Present Confirmed by Charles COFFMAN, Butch ([id number]) on 11/01/2023 8:58:01 PM MUSE SYSTEM 10/30/2023 10:4 0 PM EDT 11/01/2023 8:58 PM EDT Rosa Cornejo MD ECG ORDERABLES Performing Organization Address [facility] Phone Number MUSE SYSTEM * XR Chest One View (10/30/2023 10:10 PM EDT) WORKSTATION ID [id number] RAD Anatomical Region Laterality Modality Chest N/A Digital Radiogra phy Impressions 10/30/2023 10:32 PM EDT 1. ??Examination limited by low lung volumes. 2. ??Findings suggesting pulmonary vascular congestion with possible mild interstitial edema. 3. ??Known ascending aortic aneurysm, as seen on recent CT. 4. ??Nonspecific widening mediastinum. This can be secondary to magnification from portable technique and low lung volumes. Findings similar to form stripper radiograph from CT 10/30/2023. Thank you for letting us participate in the care of this patient. ??If you are a health care provider and have any questions regarding this report, please contact the number below. ??For patients who have questions please contact the health coronary care unit nurse that requested your imaging first. ? Electronically signed by: Wilson Mccartney MD, [facility] ([phone]), at 10/30/2023 10:32 PM Narrative 10/30/2023 10:32 [...] and low lung volumes. Findings similar to form stripper radiograph from CT 10/30/2023. Thank you for letting us participate in the care of this patient. If youare a health care provider and have any questions regarding this report,please contact the number below. For patients who have questions please contactthe health coronary care unit nurse that requested your imaging first. Rosa Cornejo MD IMG DX ORDERABLES * Green Tube HOLD (10/30/2023 10:05 PM EDT) [facility] Green Hold Sample in lab. [facility] Blood Venous Draw / Unknown 10/30/2023 10:05 PM EDT 10/30/2023 10:13 PM EDT Qamar Gallardo MD CHEMISTRY ORDERABLES [facility] [place] [address] * (ABNORMAL) Differential, Automated (10/30/2023 10:05 PM EDT) [facility] Neutrophil % 76.6 % [facility] Neutrophil Absolute 6.94(H) 1.70 [...] Abs 0.1 0.0 - 0.4 x10(3)/ L [facility] Basophil % [...] x10(3)/ L [facility] Blood 10/30/2023 10:0 5 PM EDT 10/30/2023 10:12 PM EDT Narrative Resulting Agency Comment Spec In Lab Qamar Gallardo MD HEMATOLOGY ORDERABLE S [facility] [place] [address] * (ABNORMAL) Hemogram (10/30/2023 10:05 PM EDT) White Blood Cell 9.0 4.0 - 9.5 x10(3)/ L [facility] [...] Platelet 211 145 - 357 x10(3)/ L [facility] [...] MD HEMATOLOGY ORDERABLE S Performing Organization Address City/[facility]/ZIP Co de Phone Number [facility] [place] [address] * Hemoglobin A1c (10/30/2023 10:05 PM EDT) [...] Mellitus, Diabetes Care 2013; 36: Suppl. 1, E04-66 Estimated Average Glucose See note mg/dL [facility] Comment: Estimated Average Glucose not appropriate for patients over 70 years of age. Blood 10/30/2023 10:0 5 PM EDT 10/30/2023 10:12 PM EDT Narrative Resulting Agency Comment Spec In Lab Rosa Cornejo MD CHEMISTRY ORDERABLE S Performing Organization Address City/[facility]/ZIP Co de Phone Number [facility] [place] [address] * Lipid Panel (Reflex Direct LDL) (10/30/2023 10:05 PM EDT) Cholesterol, Total 218 mg/dL [facility] Comment: Desirable: ? <200 mg/dL Borderline High: 200-239 mg/dL Higher: ?>nj=396 mg/dL Triglyceride 46 mg/dL [facility] Comment: Normal: ?<150 mg/dL Borderline High: 150-199 mg/dL High: ?200-499 mg/dL Very High: ? >te=151 mg/dL HDL Cholesterol 64 mg/dL [facility] Comment: Females: High Risk: <50 mg/dL Males: High Risk: <40 mg/dL LDL Cholesterol 145 mg/dL [facility] Comment: Desirable: ? <100 mg/dL Above Desirable: 100-129 mg/dL Borderline High: 130-159 mg/dL High: ?160-189 mg/dL Very High: ? >lr=387 mg/dL Lipid Interpretation See Note [facility] [...] ACC/AHA Guidelines (most recently Feliciano et al. [facility] 03/23/22): For individuals with atherosclerotic cardiovascular disease (ASCVD)or LDL >aq=592 mg/dL, use a high-intensity statin (40-80 mg [...] CHEMISTRY ORDERABLE S [facility] [place] [address] * TSH [place] (10/30/2023 10:05 PM EDT) Thyroid Stimulating Hormone 3.35 0.27 - 4.20 mcIU/mL [facility] Comment: Reference Interval (mcIU/mL): Females: ??First Trimester: 0.23-3.88 ??Second Trimester: 0.22-3.90 ??Third Trimester: 0.44-4.66 Blood 10/30/2023 10:0 5 PM EDT 10/30/2023 10:12 PM EDT Narrative Resulting Agency Comment Spec In Lab Rosa Cornejo MD CHEMISTRY ORDERABLE S [facility] [place] [address] * pro-Brain Natriuretic Peptide (10/30/2023 10:05 PM EDT) NT-proBNP 375 <=449 pg/mL [facility] Blood 10/30/2023 10:0 5 PM EDT 10/30/2023 10:12 PM EDT Narrative Resulting Agency Comment Spec In Lab Rosa Cornejo MD CHEMISTRY ORDERABLE S Performing Organization Address [facility]/ZIP Co de Phone Number [facility] [place] [address] * (ABNORMAL) Comprehensive metabolic panel (non-fasting) (10/30/2023 10:05 PM EDT) Pathologist [facility] Glucose 121 65 - 199 mg/dL [facility] [...] MD CHEMISTRY ORDERABLE S Performing Organization Address City/[facility]/ZIP Co de Phone Number [facility] [place] [address] * Phosphorus (10/30/2023 10:05 PM EDT) Phosphorus 3.3 2.5 - 4.5 mg/dL [facility] Blood 10/30/2023 10:0 5 PM EDT 10/30/2023 10:12 PM EDT Narrative Resulting Agency Comment Spec In Lab Rosa Cornejo MD CHEMISTRY ORDERABLE S Performing Organization Address City/[facility]/ZIP Co de Phone Number [facility] [place] [address] * Magnesium (10/30/2023 10:05 PM EDT) Magnesium 0.86 0.69 - 1.07 mmol/L [facility] Blood 10/30/2023 10:0 5 PM EDT 10/30/2023 10:12 PM EDT Narrative Resulting Agency Comment Spec In Lab Rosa Cornejo MD CHEMISTRY ORDERABLE S [facility] [place] [address] * (ABNORMAL) Troponin (10/30/2023 10:05 PM EDT) Troponin-T, High Sensitivity 214(H) <=14 ng/L [facility] [...] can be found in the [facility] Laboratory Test Catalog Troponin - [facility] Laboratory Test Catalog Reference: Fourth [place] Definition of Myocardial Infarction. Journal of the [employer] 2018;72:9673-8629 Blood 10/30/2023 10:0 5 PM EDT 10/30/2023 10:12 PM EDT Narrative Resulting Agency Comment Spec In Lab Rosa Cornejo MD CHEMISTRY ORDERABLE S [facility] [place] [address] * EKG 12 Lead (10/30/2023 8:21 PM EDT) Ventricular rate 49 BPM MUSE SYSTEM Atrial Rate 49 BPM MUSE SYSTEM P-R Interval 230 ms MUSE SYSTEM QRS Duration 96 ms MUSE SYSTEM Q-T Interval 526 ms MUSE SYSTEM QTC Calculated (Bezet) 475 ms MUSE SYSTEM Calculated P Hoskins 98 degrees MUSE SYSTEM Calculated R Hoskins -48 degrees MUSE SYSTEM Calculated T Hoskins -51 degrees MUSE SYSTEM INTERPRETATION Sinus bradycardia [...] Cornejo MD ECG ORDERABLES Performing Organization Address City/[facility] Co de Phone Number MUSE SYSTEM [...] Provider: Parisa Kowalski RN)[phone] (Given - Provider: eJan Oliveira RN) hydrALAZINE (Apresoline) (20 mg/mL) injection [...] documented as of this encounter Care Teams Diesel Powerplant Mechanic Relationship Specialty Start Date End Date Rosie Mathews MD [address] [place] [id number] PCP - General Family Medicine 11/25/17 11/23/23 documented as of this encounter
--- OUTSIDE RECORDS SUMMARY | 2024-02-15 10:34 | XMS_ITS | Encounter Summary ---
Author Organization [facility] Address [facility] [place] [address] Care Team Providers Care Filters Assembler Name Role Phone Rosie Mathews MD Primary Care Provider [phone] Encounter Details Date Type Department Care Team (Late st Contact Info) Description 10/30/2023 External Results Transfer Center [facility] [place] [address] Social History Tobacco Use Types Packs/Day Years Used Date Smoking Tobacco: Former Smokeless Tobacco: Never Alcohol Use Standard Drinks/Week Comments Not Currently 0 (1 standard drink = 0.6 oz pur e alcohol) [facility] Utilities Answer Date Recorded In the past 12 months has e [employer], gas, oil, or water [employer] threatened to shut off services in your [...] 11:20 AM EDT Office Visit Cardiology at [address] [address] Izaiah Meyer MD [facility] [place] [address] documented as of this encounter Procedures Procedure [...] on filedocumented in this encounter Care Teams Filters Assembler Relationship Specialty Start Date End Date Rosie Mathews MD [address] [place] [address] PCP - General Family Medicine 11/25/17 11/23/23 documented as of this encounter
--- OUTSIDE RECORDS SUMMARY | 2024-02-15 10:34 | XMS_ITS | Clinical Summary ---
Author Organization [facility] Address [address] [place] [address] Care Team Providers Care Vp Hr Diversity Name Role Phone Kirsten Bateman MD Primary Care Provider [phone] Allergies Active Allergy Reactions Criticality Noted Date [...] COVID-19 Vaccine (2022-24 season) 2023 Care Teams Vp Hr Diversity Relationship Specialty Start Date End Date Kirsten Bateman MD [address] [place] [phone] PCP - General 01/13/10
--- OUTSIDE RECORDS SUMMARY | 2024-02-17 10:30 | XMS_ITS | Encounter Summary ---
Author Organization [facility] Address [facility] [place] [address] Care Team Providers Care Rotational Moulding Operator Name Role Phone Rosie Mathews MD Primary Care Provider [phone] Encounter Details Date Type Department Care Team (Late st Contact Info) Description 11/18/2023 External Results Administration [facility] [place] [address] Social History Tobacco Use Types Packs/Day Years Used Date Smoking Tobacco: Former Smokeless Tobacco: Never Alcohol Use Standard Drinks/Week Comments Not Currently 0 (1 standard drink = 0.6 oz pur e alcohol) [facility] Utilities Answer Date Recorded In the past 12 months has e [employer], gas, oil, or water company threatened to [...] AM EDT Office Visit Cardiology at [address] [phone] Izaiah Meyer MD [facility] [place] [address] documented as of this encounter Procedures Procedure Name Priority Date/Time Associated Diagnosis Comments ECG SCAN Routine 11/18/2023 4:50 PM EDT documented in this encounter Results * Scan Doc: ECG (11/18/2023 4:50 PM EDT) Historical Provider MEDIA MGR SCAN EX T ORDR/RSLT documented in this encounter Visit Diagnoses Not on filedocumented in this encounter Care Teams Rotational Moulding Operator Relationship Specialty Start Date End Date Rosie Mathews MD [address] [place] [address] PCP - General Family Medicine 11/25/17 11/23/23 documented as of this encounter
--- OUTSIDE RECORDS SUMMARY | 2024-02-17 10:30 | XMS_ITS | Encounter Summary ---
Author Organization [facility] Address [facility] [place] [address] Care Team Providers Care Open Die Inspector Name Role Phone Masood Pierson MD Primary Care Provider Encounter Details Date Type Department Care Team (Latest Contact Info) Description 11/24/2023 Travel Social History Tobacco Use Types Packs/Day Years Used Date Smoking Tobacco: Former Smokeless Tobacco: Never Alcohol Use Standard Drinks/Week Comments Not Currently 0 (1 standard drink = 0.6 oz pur e alcohol) [facility] Utilities Answer Date Recorded In [...] health care facility (including now)? No 11/01/2023 DH IPV Inpatient [...] AM EDT Office Visit Cardiology at [address] [address] Izaiah Meyer MD [facility] [place] [address] documented as of this encounter Visit Diagnoses Not on filedocumented in this encounter Care Teams Open Die Inspector Relationship Specialty Start Date End Date Masood Pierson MD [address] [place] [address] PCP - General Family Medicine 11/24/23 documented as of this encounter
--- OUTSIDE RECORDS SUMMARY | 2024-02-17 10:30 | XMS_ITS | Encounter Summary ---
Author Organization [facility] Address [facility] [place] [address] Care Team Providers Care Senior Strategy Manager Name Role Phone Rosie Mathews MD Primary Care Provider [phone] Encounter Details Date Type Department Care Team (Late st Contact Info) Description 11/18/2023 Telephone Cardiology at [address] [address] Cheryl Guzman MD [facility] [place] [address] Social History Tobacco Use Types Packs/Day Years Used Date Smoking Tobacco: Former Smokeless Tobacco: Never Alcohol Use Standard Drinks/Week Comments Not Currently 0 (1 standard drink = 0.6 oz pur e alcohol) [facility] Utilities Answer Date Recorded In the past 12 months has e electric, gas, oil, or water [employer] threatened to shut off services in your [...] Provider: Radu Giron MD Patient Location: ED, [facility] [place] Past Medical History: HTN HLD NSTEMI ([facility] 11/02, status-post revasc) Presenting Symptoms per OSH: Lyla Goodrich is a 83 y.o. woman who presents to [facility], [place] with an episode of chest pain. Recent admission to [facility] with NSTEMI status-post PCI to the prox-RCA [...] today's values. 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 Recommend admission for observation to assess for [...] AM EDT Office Visit Cardiology at [address] [phone] Izaiah Meyer MD [facility] [place] [address] documented as of this encounter Visit Diagnoses Not on filedocumented in this encounter Care Teams Senior Strategy Manager Relationship Specialty Start Date End Date Rosie Mathews MD [address] [place] [address] PCP - General Family Medicine 11/25/17 11/23/23 documented as of this encounter
--- OUTSIDE RECORDS SUMMARY | 2024-02-17 10:30 | XMS_ITS | Encounter Summary ---
Author Organization [facility] Address [facility] [place] [address] Care Team Providers Care Hospital Supervisor Name Role Phone Masood Pierson MD Primary Care Provider Encounter Details Date Type Department Care Team (Late st Contact Info) Description 12/16/2023 Telephone Cardiology at [address] [place] [address] Izaiah Meyer MD [facility] [place] [address] Social History Tobacco Use Types Packs/Day Years Used Date Smoking Tobacco: Former Smokeless Tobacco: Never Alcohol Use Standard Drinks/Week Comments Not Currently 0 (1 standard drink = 0.6 oz pur e alcohol) [facility] Utilities Answer Date Recorded In the past 12 months has [employer], gas, oil, or water [employer] threatened to shut off services in your [...] - 12/16/2023 11:25 AM EDT Denise, [facility] Cardiac pet care assistant, called to report that at today's session [...] AM EDT Office Visit Cardiology at [address] [place] [address] Izaiah Meyer MD [facility] [place] [place] [address] documented as of this encounter Visit Diagnoses Not on filedocumented in this encounter Care Teams Hospital Supervisor Relationship Specialty Start Date End Date Masood Pierosn MD [address] [place] [address] PCP - General Family Medicine 11/24/23 documented as of this encounter
--- OUTSIDE RECORDS SUMMARY | 2024-02-17 10:30 | XMS_ITS | Encounter Summary ---
Author Organization [facility] Address [facility] [place] [address] Care Team Providers Care Equip Maint Eng Name Role Phone Masood Pierson MD Primary Care Provider [phone] Reason for Visit * Reason Comments Establish Care Coronary Artery Disease Encounter Details Date Type Department Care Team (Latest Contact Info) Description 11/24/2023 10:40 AM EDT Office Visit Cardiology at [address] [place] [address] Izaiah Meyer MD [facility] [place] [address] ASCVD (arteriosclerotic cardiovascular disease); Cardiomyopathy, ischemic; Ascending aorta dilatation; Hyperpiesia Social History Tobacco Use Types Packs/Day Years Used Date Smoking Tobacco: Former Smokeless Tobacco: Never Alcohol Use Standard Drinks/Week Comments Not Currently 0 (1 standard drink = 0.6 oz pur e alcohol) [facility] Utilities Answer Date Recorded In [...] in a fpc (including now)? No 11/01/2023 DH IPV Inpatient [...] Prox 60 Mid 80 3.5 x 15 [place] 3.5 x 15 Andrea RCA Mid AoCTO. [...] y.o. female. HPI: 83 f [facility]. She has a recent [...] rehab. [facility] 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
--- OUTSIDE RECORDS SUMMARY | 2024-02-17 10:30 | XMS_ITS | Encounter Summary ---
Author Organization [facility] Address [facility] [place] [address] Care Team Providers Care Outreach And Education Social Worker Name Role Phone Rosie Mathews MD Primary Care Provider [phone] Reason for Referral * Consultation (Routine) - Authorized Specialty Diagnoses / Procedures Referred By Contac t Referred To Contact Cardiology Diagnoses 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 Rosa Hugo MD [facility] [place] [address] Cardiac Rehab, [address] [place] [address] Referral ID Status Reason Start Date Expiration Date Visits Requested Visits Authorized [id number] Authorized Consult, Test & Treat Non PCP 11/03/2023 05/01/2024 36 36 * Home Health Care (Routine) - Authorized Specialty Diagnoses / Procedures Referred By Contac t Referred To Contact Diagnoses Unstable angina Rosa Hugo MD [facility] [place] [address] Referral ID Status Reason Start Date Expiration Date Visits Requested Visits Authorized [id number] Authorized Consult, Test & Treat 11/03/2023 05/01/2024 999 999 Reason for Visit * Auth/Cert (Routine) Specialty Diagnoses / Procedures Referred By John hunt Referred To Contact Diagnoses Unstable angina Chest pain NSTEMI Procedures CARDIAC CATHETERIZATION Rosa Dewey MD [facility] [place] [address] [facility] Referral ID Status Reason Start Date Expiration Date Visits Re quested Visits Authorized [id number] 1 1 Encounter Details Date Type Department Care Team (Latest Contact Info) Description 10/30/2023 5:11 PM EDT - 11/03/2023 5:13 PM EDT Hospital Encounter Heart and Vascular Unit Level 4 [place] [address] Rosa Dewey MD [facility] [place] [address] Jean Laboy MD [facility] [place] [address] Rosa Hugo MD [facility] [place] [address] 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; Tachycardia; Unstable angina Discharge Disposition: Home Social History Tobacco Use Types Packs/Day Years Used Date Smoking Tobacco: Former Smokeless Tobacco: Never Alcohol Use Standard Drinks/Week Comments Not Currently 0 (1 standard drink = 0.6 oz pur e alcohol) [facility] Utilities Answer Date Recorded In the past 12 months has e [employer], gas, oil, or water [employer] threatened to shut off services in your [...] hyperlipidemia who presented to [facility] as a transfer from [facility] as a possible STEMI alert with acute onset chest pain. The patient reports that her symptoms initially began on Tuesday when she was walking to [place] and experienced bilateral arm heaviness while walking with no other symptoms. Then, this afternoon shereports developing bilateral achy shoulder pain and nonradiating substernal left-sided chest pressure that was 7/10 in severity after coming home from sikhism. The patient denies any associated fevers, chills, diaphoresis, lightheadedness/dizziness, syncope/presyncope, dyspnea (either at rest or on exertion), palpitations, orthopnea, or PND. The patient subsequently presented to [facility] as a walk-in for further evaluation. [...] on repeat, her TRU resolved. Cardiology at [facility] was consulted for transfer; the patient was loaded with aspirin 324 mg and ticagrelor 180 mg, started on a heparin drip, and given nitroglycerin with improvement in chest pain. Upon arrival to [facility], the patient was taken directly to the Sr. Strategic Sourcing Manager. Two lesions were discovered: one in the prox RCA (felt to almost be a LINK TRAINER TEACHER but they were able to wire, [...] dose administered prior to arrival in the lab aid. Recommended anti-platelet/anti-thrombotic regimen: Continue aspirin 81 mg [...] low lung volumes. Findings similar to senior principal process engineer radiograph from CT 10/30/2023. Pending Studies and [...] 10:40 AM Izaiah Meyer MD Cardiology at [place] Arrive at: [facility] [address] [phone] Future Orders Complete By Expires Referral to Cardiac Rehab [[id number] Custom] As directed Process Instructions: If no progress note charted, please enter Clinical details in comments. Scheduling Instructions: Questions: My question or request is: STEMI. Cardiac rehab at [facility]. Referral to Home Health [REF34 Custom] As directed Process Instructions: If no progress note charted, please enter Clinical details in comments. Scheduling Instructions: Comments: Please evaluate Adin Santos for admission to Home Health. [address] [facility] [phone] (home) Date of : 1940 Inpatient DOCUMENTATION FOR VNA SERVICES (INCLUDING THOSE PATIENTS WITH MEDICARE COVERAGE REQUIRING HOME VNA SERVICES AND/OR HOSPICE SERVICES) PATIENT'S LOCATION: Adin Santos [address] [facility] [phone] (home) Cell: Telephone Information: Senior Sales Engineer's Name: self In discussion with the attending physician, it is certified that this patient is under their care and that they, or a Nurse Practitioner, Clinical Nurse specialist or Physician Rn Eligibility who is working directly with them, had [...] regarding health issues HOME HEALTH CARE AGENCY: [facility] [address] [place] [address] START OF CARE: within 24-48 hours of [...] Rosie Mathews MD [address] / [facility] [address] . All A agencies which cover [...] Mathews MD / Dr. Masood Pierson [address] [place] [address] 11/09/23 1:55 PM arrival for 2:10 PM appointment National Account Executive: Izaiah Meyer MD [address] [place] [address] , 11/24/2023 10:40 AM Your Inpatient Medical Team at [facility] Name(s) of your inpatient provider(s): Attending physician: Rosa Hugo MD Resident physicians: Emile Robles MD; Elmer Tamez MD If you have non-emergent questions, prior to your follow-up visit call: Tuesday-Tuesday between the hours of 8AM-5PM please call the Cardiology Clinic [phone] to speak with a nurse. All other hours please call the Hospital Test Engineering Manager [phone] and ask to speak to the research fellow on-call. Your Primary Care Provider Rosie Mathews MD [phone] For questions regarding this document or issues relating to this hospitalization on the Medical Service, please contact your inpatient physician through the [facility] Test Engineering Manager . Issues afterhours and on weekends will be handled by the National Account Executive staff on-call. Associated attestation - Rosa Hugo [...] MD / Dr. Masood Pierson [address] [place] [address] 11/09/23 1:55 PM arrival for 2:10 PM appointment National Account Executive: Izaiah Meyer MD [address] [place] [address] , 11/24/2023 10:40 AM Your Inpatient Medical Team at [facility] Name(s) of your inpatient provider(s): Attending physician: Rosa Hugo MD Resident physicians: Emile Robles MD; Elmer Tamez MD If you have non-emergent questions, prior to your follow-up visit call: Tuesday-Tuesday between the hours of 8AM-5PM please call the Cardiology Clinic [phone] to speak with a nurse. All other hours please call the Hospital Test Engineering Manager [phone] and ask to speak to the research fellow on-call. Your Primary Care Provider Rosie Mathews MD [phone] documented in this encounter Medications at Time [...] hyperlipidemia who presented to [facility] as a transfer from [facility] as a possible STEMI alert with [...] hyperlipidemia who presented to [facility] as a transfer from [facility] as a possible STEMI alert with [...] Resident on Cardiology Service Cardiology S1 (Pager [phone]) Note written in conjunction with Claudio Perla [facility] Medical Student, MS3 Associated attestation - Rosa [...] Nirmala Webb - 11/01/2023 11:25 AM EDT Enterprise Resource Planner Encounter Note Patient Name: Adin Santos : [id number] MR#: [id number] Admit Date: 10/30/2023 5:11 PM Hospital Day 2 days Narrative: Self initiated visit to patient for Spiritual support in a regular unit rounds. Assessment: Patient is in the bathroom at the time of this visit. Not a good time for Fire Regulator visit. Intervention and Outcome: An attempted visit [...] hyperlipidemia who presented to [facility] as a transfer from [facility] as a possible STEMI alert with [...] low lung volumes. Findings similar to senior principal process engineer radiograph from CT 10/30/2023. Scheduled Medications: [AUG [...] hyperlipidemia who presented to [facility] as a transfer from [facility] as a possible STEMI alert with [...] Resident on Cardiology Service Cardiology S1 (Pager [phone]) Note written in conjunction with Claudio Perla [facility] Medical Student, MS3 Associated attestation - Rosa [...] hyperlipidemia who presented to [facility] as a transfer from [facility] as a possible STEMI alert with acute onset chest pain. Active Problems: Active Hospital Problems Diagnosis Unstable angina Resolved Hospital Problems No resolved problems to display. 24 hr events: - Cath'd yesterday with lesion in the proximal RCA (initially thought it was LINK TRAINER TEACHER but they were ableto wire, balloon [...] low lung volumes. Findings similar to senior principal process engineer radiograph from CT 10/30/2023. TTE (05/13): Interpretation [...] hyperlipidemia who presented to [facility] as a transfer from [facility] as a possible STEMI alert with [...] Resident on Cardiology Service Cardiology S1 (Pager [phone]) Note written in conjunction with Claudio Perla [facility] Medical Student, MS3 Associated attestation - Rosa [...] PCP: Rosie Mathews MD PCP phone number: [phone] Date of Admission: 10/30/2023 ( Hospital Day 0 days ) Attending:Rosa Cornejo MD ID: Adin Santos is a 83 y.o. female PMH significant for hypertension and hyperlipidemia who presented to [facility] as a transfer from [facility] as a possible STEMI alert with acute onset chest pain. The patient reports that her symptoms initially began on Tuesday when she was [place] and experienced bilateral arm heaviness while walking with no other symptoms. Then, this afternoon shereports developing bilateral achy shoulder pain and nonradiating substernal left-sided chest pressure that was 7/10 in severity after coming home from sikhism. The patient denies any associated fevers, chills, diaphoresis, lightheadedness/dizziness, syncope/presyncope, dyspnea (either at rest or on exertion), palpitations, orthopnea, or PND. The patient subsequently presented to [facility] as a walk-in for further evaluation. [...] on repeat, her TRU resolved. Cardiology at [facility] was consulted for transfer; the patient was loaded with aspirin 324 mg and ticagrelor 180 mg, started on a heparin drip, and given nitroglycerin with improvement in chest pain. Upon arrival to [facility], the patient was taken directly to the Sr. Strategic Sourcing Manager. 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 Findings similar to senior principal process engineer radiograph from CT 10/30/2023. Assessment & Plan: Adin Santos is a 83 y.o. female PMH significant for hypertension and hyperlipidemia who presented to [facility] as a transfer from [facility] as a possible STEMI alert with [...] HLD transferred with chest from [facility]. BP 217/68, HR 71 EKG with [...] information for follow-up Home Health & Hospice, [place] [address] [place] [address] TANESHA BOYCE confirmed with [facility] that they will see the patient within [...] N/A Patient is insured through: Primary Insurance: [employer] MANAGED MEDICARE Payor: [employer] MEDICARE / Plan: [employer] MANAGED MEDICARE PPO / Product Type: *No [...] MOVING FORWARD: Monitor Tele, control BP, monitor lab aid sites, D/C Planning INDIVIDUALIZED FALL PREVENTION INTERVENTIONS: [...] outpatient cardiac rehabilitation program at [facility] was discussed. Patient agrees to a [...] and above on RA. PT went to lab aid today. Left fem site oozed throughout shift, [...] MOVING FORWARD: Monitor Tele, control BP, monitor lab aid sites, D/C Planning INDIVIDUALIZED FALL PREVENTION INTERVENTIONS: [...] Transfer from another hospital Location: [facility] Reason for Hospitalization: chest pain Covid Vaccination Status: 1st, 2nd & booster Past medical History: No past medical history on file. Hospitalizations Within the Past 30 Days: no previous admission in last 30 days Current Decision-Making Capacity: Self If AD's have not been completed the following surrogate would be surrogate decision maker per [place] surrogate decision making law. (Only good for 180 days) Any patient receiving care in [place] must abide by [place] law. The hierarchy for surrogate decision making [...] (i) The agent with financial power of managing attorney or a conservator appointed in accordance [...] steady place to sleep or slept in [facility] (including now)?: No In the past 12 [...] toilet seat Home Address confirmed as: [address] [place] [phone] Social & Family Supports: All names listed below confirmed with patient as current and correct Extended Emergency Contact Information Primary Emergency Contact: Iris Downing Address: [address] [place], [place] [address] [place] [address] Mobile Relation: Child Secondary Emergency Contact: Karen More Address: [address] Mobile Relation: Child Current Care Provided by: self Provides Primary Care For: no one Caregiver if needed: child(emmanuel), adult Quality of Family relationships: involved, supportive Community Resources being provided currently: other (see comments) (receives [facility] services at home (1xweekly)) [...] Insurance: N/A Prescription Coverage: Yes Preferred Pharmacy: [id number] - [place], [place] - [address] [facility] [address] [facility] [address] Status: Patient is a : No Primary Care Provider listed: Masood Pierson MD [phone] Patient/Caregiver Goals of Treatment: home when MR Potential Needs for Transition of Care: home health care Agency Referrals: Not Applicable I have met with the patient to: discuss discharge planning needs. provide the [facility], Office of Care Management letter from the Steel Rule Inspector pertaining to rehab referrals. provide a letter describing our affiliations within the [facility] and educate about their right to choose where referrals are sent. provide a list of Home Health Agencies / Durable Medical Equipment vendors which serve their preferred geographic area. provided patient with [facility] Star Quality Rating handout. They have requested referrals to: [facility] [address] [place] [address] Note routed to a Heating Engineer who will communicate referrals to facilities and [...] care planning. * Plan of Care - Mray Sweeney RN - 10/31/2023 5:40 PM EDT [...] BP, NPO at MD for cath, monitor lab aid sites, D/C Planning INDIVIDUALIZED FALL PREVENTION INTERVENTIONS: [...] 11:20 AM EDT Office Visit Cardiology at [address] [place] [address] Izaiah Meyer MD [facility] [place] [address] Scheduled Referrals Name Type Priority Associated Diagnoses [...] [facility] Lymph % 15.2 % [facility] Lymphocytes Abs 1.3 0.9 - 3.2 x10(3)/ L [facility] Monocyte % 16.9 % [facility] Monocyte Abs 1.4(H) 0.3 - 0.9 x10(3)/ L [facility] Eos % 3.7 % [facility] Eosinophils Abs 0.3 0.0 - 0.4 x10(3)/[facility] Basophil % 0.5 % [facility] [...] HEMATOLOGY ORDERABLE S [facility] [place] [address] * (ABNORMAL) Hemogram (11/03/2023 3:46 AM EDT) [...] HOSPITAL LABORATORY Platelet 181 145 - 357 x10(3)/[facility] RDW Standard Deviation 54.7(H) 37.0 - 46.0 [facility] RDW coefficient of variation 14.6(H) 11.5 - 14.1 % [facility] Mean Platelet Volume 11.2 7.6 - 12.9 [facility]ORY NRBC% auto 0.0 % [facility] NRBC Absolute 0.000 0.000 - 0.000 x10(3)/ L [facility] Blood 11/03/2023 3:46 AM EDT 11/03/2023 4:11 AM EDT Narrative Resulting Agency Comment Spec In Lab Qamar Gallardo MD HEMATOLOGY ORDERABLE S [facility] [place] [address] * Phosphorus (11/03/2023 3:46 AM EDT) Phosphorus 3.2 2.5 - 4.5 mg/dL [facility] Comment:result rechecked-KS Blood 11/03/2023 3:46 AM EDT 11/03/2023 4:11 AM EDT Narrative Resulting Agency Comment Spec In Lab Rosa Cornejo MD CHEMISTRY ORDERABLE S [facility] [place] [address] * Magnesium (11/03/2023 3:46 AM EDT) Magnesium 0.90 0.69 - 1.07 mmol/L [facility] Blood 11/03/2023 3:46 AM EDT 11/03/2023 4:11 AM EDT Narrative Resulting Agency Comment Spec In Lab Rosa Cornejo MD CHEMISTRY ORDERABLE S Performing Organization Address City/[facility]/ZIP Co de Phone Number [facility] [place] [address] * (ABNORMAL) Basic Metabolic Panel (non-fasting) (11/03/2023 3:46 AM EDT) Glucose 105 65 - 199 mg/dL BAR[facility] [...] CHEMISTRY ORDERABLE S [facility] [place] [id number] * EKG 12 Lead (11/02/2023 12:44 PM EDT) Ventricular rate 83 BPM MUSE SYSTEM Atrial Rate 83 BPM MUSE SYSTEM P-R Interval 216 ms MUSE SYSTEM QRS Duration 90 ms MUSE SYSTEM Q-T Interval 384 ms MUSE SYSTEM QTC Calculated (Bezet) 451 ms MUSE SYSTEM Calculated P Lares 92 degrees MUSE SYSTEM Calculated R Lares -51 degrees MUSE SYSTEM Calculated T Lares -33 degrees MUSE SYSTEM INTERPRETATION Sinus rhythm with 1st degree A-V block with Premature atrial complexes Left axis deviation Moderate voltage criteria for LVH, may be normal variant ( R in aVL , Ifeanyi product ) Anterolatera l infarct (cited on or before 01-NOV-2023) Abnormal ECG When compared with ECG of 01-NOV-2023 22:10, Premature atrial complexes are now Present MA interval has increased Vent. rate has decreased [...] Tamez MD URINE ORDERABLES Performing Organization Address City/[facility] Co de Phone Number [facility] [place] [address] * (ABNORMAL) Urinalysis with reflex Culture (11/02/2023 [...] Cloudy(A) Clear [facility] Specific [place] Urine Automated >=1.030(A) 1.005 - 1.030 [facility] Color, Urine Dipstick Dark Yellow Yellow [facility] Reflex to Culture Yes [facility] Clean Catch Urine 11/02/2023 11:40 AM EDT 11/02/2023 12:04 PM EDT Narrative Resulting Agency Comment Spec In Lab Rosa Hugo MD URINE ORDERABLES Performing Organization Address City/State/[facility] Co de Phone Number [facility] [place] [address] * Respiratory Panel PCR (11/02/2023 10:15 AM EDT) Respiratory Panel Source BEVERAGE INSPECTION MACHINE TENDER Swab [facility] Respiratory Panel PCR Negative Negative [facility] Comment: Respiratory Panels are performed on the [employer], using multiplexed PCR nucleic acid detection. ??Negative [...] performed using the [employer] Respiratory Panel 2.1 ([facility]) as authorized by the FDA issued Emergency Use Authorization (EUA). This panel also tests for multiple other viral and bacterial pathogens. This assay is intended for In-vitro Diagnostic (IVD) use with nasopharyngeal swabs in viral transport media. The assay is performed based on the instructions for use and additional guidance provided by the FDA. Testing is performed in laboratories within the [facility], each of which is certified under [...] fact sheets at the following FDA website: https://www.fda.gov/medical-devices/gygzzvnuwvq-nqargvz-4275-ubnlt-02-erpaxaori- use-a qfkultpbbogdh-djonddl-fcyooto/vskhu-okzxrsemcja-rvba Human Metapneumovirus Not Detected Not Detected BAR[facility] [...] GEN ERAL ORDERABLES [facility] [place] [address] * XR Chest One View (11/02/2023 2:51 AM EDT) WORKSTATION ID [id number] RAD Anatomical Region Laterality Modality Chest N/A [...] who have questions please contact the health childcare center administrator that requested your imaging first. ? Electronically signed by: Omaira Tran MD, [facility] ([phone]), at 11/02/2023 4:56 AM Narrative 11/02/2023 4:56 [...] patients who have questions please contactthe health childcare center administrator that requested your imaging first. Rosa Hugo MD IMG DX ORDERABLES * (ABNORMAL) Differential, Automated (11/02/2023 12:35 AM EDT) Neutrophil % 76.5 % [facility] Neutrophil Absolute 7.69(H) 1.70 - 6.10 x10(3)/mc L [facility] Lymph % 8.3 % [facility] Lymphocytes Abs 0.8(L) 0.9 - 3.2 x10(3)/mc L [facility] Monocyte % 12.9 % [facility] Monocyte Abs 1.3(H) 0.3 - 0.9 x10(3)/mc L [facility] Eos % 1.4 % [facility] Eosinophils Abs 0.1 0.0 - 0.4 x10(3)/mc L [facility] Basophil % 0.4 % [facility] [...] HEMATOLOGY ORDERABLE S [facility] [place] [address] * (ABNORMAL) Hemogram (11/02/2023 12:35 AM EDT) White Blood Cell 10.0(H) 4.0 - 9.5 x10(3)/mc L [facility] [...] Mean Platelet Volume 11.4 7.6 - 12.9 [facility] NRBC% auto 0.0 % [facility] NRBC Absolute 0.000 0.000 - 0.000 x10(3)/ L [facility] Blood 11/02/2023 12:3 5 AM EDT 11/02/2023 12:43 AM EDT Narrative Resulting Agency Comment Spec In Lab Qamar Gallardo MD HEMATOLOGY ORDERABLE S [facility] [place] [address] * (ABNORMAL) Phosphorus (11/02/2023 12:35 AM EDT) Phosphorus 1.6(L) 2.5 - 4.5 mg/dL [facility] Blood 11/02/2023 12:3 5 AM EDT 11/02/2023 12:43 AM EDT Narrative Resulting Agency Comment Spec In Lab Rosa Cornejo MD CHEMISTRY ORDERABLE S [facility] [place] [address] * Magnesium (11/02/2023 12:35 AM EDT) Pathologist [facility] Magnesium 0.87 0.69 - 1.07 mmol/L [facility] Blood 11/02/2023 12:3 5 AM EDT 11/02/2023 12:43 AM EDT Narrative Resulting Agency Comment Spec In Lab Rosa Cornejo MD CHEMISTRY ORDERABLE S Performing Organization Address City/[facility]/ZIP Co de Phone Number [facility] [place] [address] * Basic Metabolic Panel (non-fasting) (11/02/2023 12:35 [...] CHEMISTRY ORDERABLE S [facility] [place] [address] * Blood culture (11/02/2023 12:35 AM EDT) Blood Culture No growth at 5 days. [facility] Blood 11/02/2023 12:3 5 AM EDT 11/02/2023 1:55 AM EDT Comment:#2 site ukn Narrative Resulting Agency Comment Spec In Lab Rosa Hugo MD MICROBIOLOGY - BLO OD ORDERABLES [facility] [place] [address] * Blood culture (11/02/2023 12:15 AM EDT) Blood Culture No growth at 5 days. [facility] Blood 11/02/2023 12:1 5 AM EDT 11/02/2023 1:54 AM EDT Comment:#1site unk Narrative Resulting Agency Comment Spec In Lab Rosa Hugo MD MICROBIOLOGY - BLO OD ORDERABLES Performing Organization Address City/[facility]/ZIP Co de Phone Number [facility] [place] [address] * EKG 12 Lead (11/01/2023 10:10 PM EDT) Ventricular rate 139 BPM MUSE SYSTEM Atrial Rate 139 BPM MUSE SYSTEM P-R Interval 168 ms MUSE SYSTEM QRS Duration 84 ms MUSE SYSTEM Q-T Interval 286 ms MUSE SYSTEM QTC Calculated (Bezet) 435 ms MUSE SYSTEM Calculated R Lares -59 degrees MUSE SYSTEM Calculated T Lares -27 degrees MUSE SYSTEM INTERPRETATION Mid-RP tachycardia, consider sinus tachycardia or SVT Left axis deviation Moderate voltage criteria for LVH, may be normal variant ( R in aVL , [place] product ) Inferior infarct (cited on or before 01-NOV-2023) Anterolateral infarct (cited on or before 01-NOV-2023) Abnormal ECG When compared with ECG of 01-NOV-2023 15:22, Vent. rate Although rate has increased Serial changes of Anterior infarct Present I personally reviewed the tracing and edited the fellows interpretation Confirmed by fellow MD Andrés, Enriqueta ([id number]) on 11/04/2023 7:57:50 AM Confirmed by MD Gerardo, Shameka ([id number]) on 11/04/2023 4:32:03 PM MUSE SYSTEM 11/01/2023 10:1 0 PM EDT 11/04/2023 4:32 PM EDT Rosa Cornejo MD ECG ORDERABLES Performing Organization Address City/[facility]/ZIP Co de Phone Number MUSE SYSTEM * (ABNORMAL) Hemogram (11/01/2023 10:06 PM EDT) White Blood Cell 10.4(H) 4.0 - 9.5 x10(3)/ L [facility] Red Blood Cell 4.11 4.00 - 5.21 x10(6)/ L [facility] Hemoglobin 14.0 [...] HOSPITAL LABORATORY Platelet 197 145 - 357 x10(3)/[facility] RDW Standard Deviation 54.0(H) 37.0 - 46.0 fL [facility] RDW coefficient of variation 14.6(H) 11.5 - 14.1 % [facility] Mean Platelet Volume 11.2 7.6 - 12.9 fL [facility] NRBC% auto 0.0 % [facility] NRBC Absolute 0.000 0.000 - 0.000 x10(3)/[facility] Blood 11/01/2023 10:0 6 PM EDT 11/01/2023 10:22 PM EDT Narrative Resulting Agency Comment Spec In Lab Rosa Hugo MD HEMATOLOGY ORDERAB LES [facility] [place] [address] * POCT Glucose (11/01/2023 5:59 PM EDT) Glucose, POC 104 65 - 199 mg/dL [facility] Comment: Supplemental ranges: <140 mg/dL before meals <180 mg/dL all other times of the day Blood 11/01/2023 5:59 PM EDT 11/01/2023 5:59 PM EDT Rosa Hugo MD POINT OF CARE TEST ORDERABLES [facility] [place] [address] * POCT Glucose (11/01/2023 5:35 PM EDT) Glucose, POC 85 65 - 199 mg/dL [facility] Comment: Supplemental ranges: <140 mg/dL before meals <180 mg/dL all other times of the day Blood 11/01/2023 5:35 PM EDT 11/01/2023 5:35 PM EDT Rosa Hugo MD POINT OF CARE TEST ORDERABLES Performing Organization Address City/[facility] Co de Phone Number [facility] [place] [address] * EKG 12 Lead (11/01/2023 3:22 PM EDT) Ventricular rate 59 BPM MUSE SYSTEM Atrial Rate 59 BPM MUSE SYSTEM P-R Interval 220 ms MUSE SYSTEM QRS Duration 94 ms MUSE SYSTEM Q-T Interval 428 ms MUSE SYSTEM QTC Calculated (Bezet) 423 ms MUSE SYSTEM Calculated P Lares 76 degrees MUSE SYSTEM Calculated R Lares -50 degrees MUSE SYSTEM Calculated T Lares -59 degrees MUSE SYSTEM INTERPRETATION Sinus bradycardia [...] Narrative 11/02/2023 4:57 PM EDT ?[facility] ? Cardiac Catheterization/Intervention Report ? Patient Name: Joleen, Adin Catherine. ? Procedure Date: 11/01/2023 ? A #: [id number] ? Primary Physician: Rosa Dewey I ? Case #: [id number] ? File Name: [id number] ? Catheterization Order Number: [id number] ? [facility] ? Final Report [place], [place] ? Patient Name: ? Adin Townsendjosue ?ID#: ?[id number] ? : ?1940 ? Procedure Date: ? [...] procedure was Urgent. The indication for ?the lab aid visit is ACS greater than 24 hrs. [...] ??A premounted ? 3.50 x 15 mm [place]rington (RADHA) was deployed with a maximum ? [...] ? A premounted 3.50 x 15 mm [place] (RADHA) was deployed ? with a maximum [...] dose administered prior to arrival in the lab aid. ?Recommended anti-platelet/anti-thrombotic regimen: ?Continue aspirin 81 mg daily for indefinitely. ?Continue clopidogrel 75 mg daily for 12 months then stop. ?These recommendations are made at the time of the intervention. Patient ?and provider preferences or a changing clinical situation may require ?modification of this regimen. Consult [facility] Interventional Cardiology for ?questions. ?The [...] Rosa I, MD - 12/12/2023 [facility] Cardiac Catheterization/Intervention Report Patient Name: Adin Santos Procedure Date: 11/01/2023 A #: [id number] Primary Physician: Rosa Dewey I Case #: [id number] File Name: [id number] Catheterization Order Number: [id number] [facility] FinalReport [place], [place] Patient Name: Adin Santos ID#:[id number] :1940 Procedure Date: November 01, 2023 Case #: [id number] Room: 2 Case Physician: Rosa Dewey M.D. Start: 13:53 Admission:10/30/2023 Referring Physician: Omaira Giron M.D. Discharge:11/03/2023 Procedures: * Coronary Angiography * Coronary Ultrasound * Coronary Stent Insertion History Aidn Santos is an 83 year old woman. [...] diagnostic procedure was Urgent. The indicationfor the lab aid visit is ACS greater than 24 hrs. [...] 14 atmospheres. Apremounted 3.50 x 15 mm [place] (RADHA) was deployed with amaximum inflation pressure [...] The lesion was predilated with a 3.00mm [id number] MM balloon with a maximum inflation pressure of 14atmospheres. A premounted 3.50 x 15 mm Andrea Barrington (RADHA) wasdeployed with a maximum inflation pressure [...] dose administered prior to arrival in the lab aid. Recommended anti-platelet/anti-thrombotic regimen: Continue aspirin 81 mg daily for indefinitely. Continue clopidogrel 75 mg daily for 12 months then stop. These recommendations are made at the time of the intervention.Patient and provider preferences or a changing clinical situation mayrequire modification of this regimen. Consult [facility] Interventional Cardiologyfor questions. The 1 [...] TEST O RDERABLES [facility] [place] [address] * (ABNORMAL) Differential, Automated (11/01/2023 3:09 AM EDT) [facility] Neutrophil % 63.9 % [facility] Neutrophil Absolute 5.54 1.70 - 6.10 x10(3)/mc L [facility] Lymph % 20.0 % [facility] Lymphocytes Abs 1.7 0.9 - 3.2 x10(3)/mc L [facility] Monocyte % 11.9 % [facility] Monocyte Abs 1.0(H) 0.3 - 0.9 x10(3)/mc L [facility] Eos % 3.2 % [facility] Eosinophils Abs 0.3 0.0 - 0.4 x10(3)/mc L [facility] Basophil % 0.5 % [facility] [...] x10(3)/ L [facility] Blood 11/01/2023 3:09 AM EDT 11/01/2023 3:29 AM EDT Narrative Resulting Agency Comment Spec In Lab Qamar Gallardo MD HEMATOLOGY ORDERABLE S Performing Organization Address City/State/[facility] Co de Phone Number [facility] [place] [address] * (ABNORMAL) Hemogram (11/01/2023 3:09 AM EDT) White Blood Cell 8.7 4.0 - 9.5 x10(3)/ L [facility] Red Blood Cell 3.72(L) 4.00 - 5.21 x10(6)/mc L [facility] Hemoglobin 12.5 11.7 - 15.5 [...] Platelet 184 145 - 357 x10(3)/ L [facility] RDW Standard Deviation 53.5(H) 37.0 - 46.0 fL [facility] RDW coefficient of variation 14.6(H) 11.5 - 14.1 % [facility] Mean Platelet Volume 11.3 7.6 - 12.9 fL [facility] NRBC% auto 0.0 % [facility] NRBC Absolute 0.000 0.000 - 0.000 x10(3)/mc L [facility] Blood 11/01/2023 3:09 AM EDT 11/01/2023 3:29 AM EDT Narrative Resulting Agency Comment Spec In Lab Qamar Gallardo MD HEMATOLOGY ORDERABLE S Performing Organization Address City/[facility]/ZIP Co de Phone Number [facility] [place] [address] * Phosphorus (11/01/2023 3:09 AM EDT) Phosphorus 2.5 2.5 - 4.5 mg/dL [facility] Blood 11/01/2023 3:09 AM EDT 11/01/2023 3:29 AM EDT Narrative Resulting Agency Comment Spec In Lab Rosa Cornejo MD CHEMISTRY ORDERABLE S Performing Organization Address City/[facility]/ZIP Co de Phone Number [facility] [place] [address] * Magnesium (11/01/2023 3:09 AM EDT) Magnesium 0.82 0.69 - 1.07 mmol/L [facility] Blood 11/01/2023 3:09 AM EDT 11/01/2023 3:29 AM EDT Narrative Resulting Agency Comment Spec In Lab Rosa Cornejo MD CHEMISTRY ORDERABLE S Performing Organization Address City/[facility]/ZIP Co de Phone Number [facility] [place] [address] * (ABNORMAL) Basic Metabolic Panel (non-fasting) (11/01/2023 [...] CHEMISTRY ORDERABLE S [facility] [place] [address] * (ABNORMAL) Troponin (10/31/2023 2:46 PM EDT) [...] troponin value can be found in the [facility] Laboratory Test Catalog Troponin - [facility] Laboratory Test Catalog Reference: Fourth Zachary Definition of Myocardial Infarction. Journal of the [place] [employer] 2018;72:8079-4796 Blood 10/31/2023 2:46 PM EDT 10/31/2023 2:55 PM EDT Narrative Resulting Agency Comment Spec In Lab Jean Laboy MD CHEMISTRY ORDERABLES [facility] [place] [address] * EKG 12 Lead (10/31/2023 1:07 PM EDT) Ventricular rate 54 BPM MUSE SYSTEM Atrial Rate 54 BPM MUSE SYSTEM P-R Interval 218 ms MUSE SYSTEM QRS Duration 92 ms MUSE SYSTEM Q-T Interval 540 ms MUSE SYSTEM QTC Calculated (Bezet) 512 ms MUSE SYSTEM Calculated P Lares 85 degrees MUSE SYSTEM Calculated R Lares -44 degrees MUSE SYSTEM Calculated T Lares -69 degrees MUSE SYSTEM INTERPRETATION Sinus bradycardia with 1st degree A-V block Left axis deviation Moderate voltage criteria for LVH, may be normal variant ( R in aVL , [place] product ) T wave abnormality, consider inferolateral [...] EDT) Troponin-T, High Sensitivity 580(H) <=14 ng/L BAR[facility] [...] troponin value can be found in the [facility] Laboratory Test Catalog Troponin - [facility] Laboratory Test Catalog Reference: Fourth Zachary Definition of Myocardial Infarction. Journal of the [place] College [employer] 2018;72:2123-3758 Blood 10/31/2023 11:3 7 AM EDT 10/31/2023 11:50 AM EDT Narrative Resulting Agency Comment Spec In Lab Rosa Cornejo MD CHEMISTRY ORDERABLE S Performing Organization Address [facility]/State/ZIP Co de Phone Number [facility] [place] [address] * ECHO COMPLETE (10/31/2023 8:52 AM EDT) Anatomical Region Laterality Modality Cardiac Other 10/31/2023 7:57 AM EDT Narrative 10/31/2023 9:45 AM EDT [address] [place] [address] ? Echocardiogram Report Name: ADIN SANTOS ? Study Date: 10/31/2023 07:57 AMBP: 106/76 mmHg ? Patient Location: [id number] A : 1940 ? Height: 163 cm ? Account: [id number] Age: 83 yrs ? Weight: 76 kg Gender: Female ?BSA: 1.8 m2 Ordering Physician: ROSA DEWEY Referring Physician: OMAIRA GIRON Performed By: HAFSA Carmichael Reason For Study: STEMI Interpreting Fellow: Raymond Warren. Exam Location: [facility]. Interpretation Summary -The left ventricle is [...] is no prior echocardiogram for comparison. Procedure Complete-92584. Satisfactory quality. There is sinus bradycardia. Left [...] Note Edgard Wang MD - 10/31/2023 [address] [place] [address] Echocardiogram Report Name: ADIN SANTOS Study Date: 407:57 AMBP: 106/76 mmHg Patient Location: [id number] A : 1940 Height: 163 cm Account: [id number] Age: 83 yrs Weight: 76 kg Gender: Female BSA: 1.8 m2 Ordering Physician: ROSA DEWEY Referring Physician: OMAIRA GIRON Performed By: HAFSA Carmichael Reason For Study: STEMI Interpreting Fellow: Raymond Warren. Exam Location: [facility]. Interpretation Summary -The left ventricle is [...] is no prior echocardiogram for comparison. Procedure Complete-85963. Satisfactory quality. There is sinus bradycardia. Left [...] EDT) Troponin-T, High Sensitivity 571(H) <=14 ng/L BAR[facility] [...] troponin value can be found in the [facility] Laboratory Test Catalog Troponin - [facility] Laboratory Test Catalog Reference: Fourth Zachary Definition of Myocardial Infarction. Journal of the [place] College [employer]iology 2018;72:6911-7145 Blood 10/31/2023 8:51 AM EDT 10/31/2023 9:12 AM EDT Narrative Resulting Agency Comment Spec In Lab Rosa Cornejo MD CHEMISTRY ORDERABLE S [facility] [place] [address] * CARDIAC CATHETERIZATION (10/31/2023 8:10 AM EDT) Anatomical Region Laterality Modality Other Narrative 11/07/2023 9:42 AM EDT ?[facility] ? Cardiac Catheterization/Intervention Report ? Patient Name: Adin Santos. ? Procedure Date: 10/30/2023 ? A #: [id number] ? Primary Physician: Rosa Dewey I ? Case #: [id number] ? File Name: [id number] ? Catheterization Order Number: [id number] ? [facility] ? Final Report [place], [place] ? Patient Name: ? Adin M. Goguen ?ID#: ?[id number] ? : ?1940 ? Procedure Date: ? [...] procedure was Emergent. The indication for ?the lab aid visit is ACS less than or equal [...] A premounted 4.00 x 38 mm Andrea Barrington (RADHA) was deployed ? with a maximum [...] dose administered prior to arrival in the lab aid. ?Recommended anti-platelet/anti-thrombotic regimen: ?Continue aspirin 81 mg daily for 12 months then stop. ?Continue clopidogrel 75 mg daily for indefinitely. ?These recommendations are made at the time of the intervention. Patient ?and provider preferences or a changing clinical situation may require ?modification of this regimen. Consult [facility] Interventional Cardiology for ?questions. ? [...] Rosa Dewey MD - 12/05/2023 [facility] Cardiac Catheterization/Intervention Report Patient Name: Adin Santos Procedure Date: 10/30/2023 A #: [id number] Primary Physician: Rosa Dewey I Case #: [id number] File Name: [id number] Catheterization Order Number: [id number] [facility] FinalReport [place], [place] Patient Name: Adin CatherineYasir Edvinree ID#:[id number] :1940 Procedure Date: October 30, 2023 Case #: [id number] Room: 5 Case Physician: Rosa Dewey M.D. [...] was designated as ASA Class III. The [facility] clinical frailtyscale is 5: Mildly Frail. Diagnostic Tests: Electrocardiography: EKG was assessed by ECG. EKG was Abnormal. EKG showed STDeviation >= 0.5 mm, other abnormality and dynamic EKG changes. Medications Prior to Procedure: Aspirin, Angiotensin II Receptor Kristy, Beta Kristy andStatin. Indications for Diagnostic Cath: The priority of the diagnostic procedure was Emergent. Theindication for the lab aid visit is ACS less than or equal [...] The priority for the procedure was Emergent.The [facility] indication for the procedure [...] A premounted 4.00 x 38 mm Andrea Barrington (RADHA) wasdeployed with a maximum inflation pressure [...] dose administered prior to arrival in the lab aid. Recommended anti-platelet/anti-thrombotic regimen: Continue aspirin 81 mg daily for 12 months then stop. Continue clopidogrel 75 mg daily for indefinitely. These recommendations are made at the time of the intervention.Patient and provider preferences or a changing clinical situation mayrequire modification of this regimen. Consult [facility] Interventional Cardiologyfor questions. Conclusions: * [...] Center Troponin-T, High Sensitivity 457(H) <=14 ng/L [facility] [...] troponin value can be found in the [facility] Laboratory Test Catalog Troponin - [facility] Laboratory Test Catalog Reference: Fourth Zachary Definition of Myocardial Infarction. Journal of the [place] College [employer]iology 2018;72:5593-4487 Blood 10/31/2023 4:21 AM EDT 10/31/2023 4:30 AM EDT Narrative Resulting Agency Comment Spec In Lab Rosa Cornejo MD CHEMISTRY ORDERABLE S [facility] [place] [address] * (ABNORMAL) Differential, Automated (10/31/2023 3:05 AM EDT) Neutrophil % 71.7 % [facility] Neutrophil Absolute 8.21(H) 1.70 - 6.10 x10(3)/mc L [facility] Lymph % 16.9 % [facility] Lymphocytes Abs 1.9 0.9 - 3.2 x10(3)/mc L [facility] Monocyte % 9.4 % [facility] Monocyte Abs 1.1(H) 0.3 - 0.9 x10(3)/mc L [facility] Eos % 1.3 % [facility] Eosinophils Abs 0.2 0.0 - 0.4 x10(3)/mc L [facility] Basophil % 0.4 % [facility] [...] Absolute 0.04 0.00 - 0.04 x10(3)/mc L [facility] Blood 10/31/2023 3:05 AM EDT 10/31/2023 3:13 AM EDT Narrative Resulting Agency Comment Spec In Lab Qamar Gallardo MD HEMATOLOGY ORDERABLE S [facility] [place] [address] * (ABNORMAL) Hemogram (10/31/2023 3:05 AM EDT) White Blood Cell 11.5(H) 4.0 - 9.5 x10(3)/ L [facility] Red Blood Cell 3.75(L) 4.00 - 5.21 x10(6)/[facility] Hemoglobin 12.6 11.7 - 15.5 g/dL [...] Platelet 206 145 - 357 x10(3)/ L [facility] RDW Standard Deviation 53.4(H) 37.0 - 46.0 [facility] RDW coefficient of variation 14.6(H) 11.5 - 14.1 % [facility] Mean Platelet Volume 11.1 7.6 - 12.9 [facility]ORY NRBC% auto 0.0 % [facility] NRBC Absolute 0.000 0.000 - 0.000 x10(3)/ L [facility] Blood 10/31/2023 3:05 AM EDT 10/31/2023 3:13 AM EDT Narrative Resulting Agency Comment Spec In Lab Qamar Gallardo MD HEMATOLOGY ORDERABLE S Performing Organization Address [facility] Co de Phone Number [facility] [place] [address] * (ABNORMAL) APTT (10/31/2023 3:05 AM EDT) [...] MD HEMATOLOGY ORDERABL ES Performing Organization Address [facility] de Phone Number [facility] [place] [address] * (ABNORMAL) Prothrombin Time (10/31/2023 3:05 AM [...] ORDERABL ES Performing Organization Address [facility] Co de Phone [place] [address] * (ABNORMAL) Differential, Automated (10/31/2023 1:37 AM EDT) Pathologist [facility] Neutrophil % 71.1 % [facility] Neutrophil Absolute 7.53(H) 1.70 - 6.10 x10(3)/ L [facility] Lymph % 18.0 % [facility] Lymphocytes Abs 1.9 0.9 - 3.2 x10(3)/ L [facility] Monocyte % 8.7 % [facility] Monocyte Abs 0.9 0.3 - 0.9 x10(3)/[facility] Eos % 1.6 % [facility] Eosinophils Abs 0.2 0.0 - 0.4 x10(3)/[facility] Basophil % 0.4 % [facility] Baso Absolute 0.0 0.0 - 0.1 x10(3)/[facility] Immature Gran % 0.20 % BARRE [...] HEMATOLOGY ORDERABLE S [facility] [place] [address] * (ABNORMAL) Hemogram (10/31/2023 1:37 AM EDT) Pathologist [facility] White Blood Cell 10.6(H) 4.0 - [...] Platelet 204 145 - 357 x10(3)/ L [facility] RDW Standard Deviation 54.3(H) 37.0 - 46.0 fL [facility] RDW coefficient of variation 14.6(H) 11.5 - 14.1 % [facility] Mean Platelet Volume 11.1 7.6 - 12.9 fL [facility] NRBC% auto 0.0 % [facility] NRBC Absolute 0.000 0.000 - 0.000 x10(3)/ L [facility] Blood 10/31/2023 1:37 AM EDT 10/31/2023 1:46 AM EDT Narrative Resulting Agency Comment Spec In Lab Qamar Gallardo MD HEMATOLOGY ORDERABLE S [facility] [place] [address] * Phosphorus (10/31/2023 1:37 AM EDT) Phosphorus 3.2 2.5 - 4.5 mg/dL [facility] Blood 10/31/2023 1:37 AM EDT 10/31/2023 1:46 AM EDT Narrative Resulting Agency Comment Spec In Lab Rosa Cornejo MD CHEMISTRY ORDERABLE S [facility] [place] [address] * Magnesium (10/31/2023 1:37 AM EDT) Pathologist [facility] Magnesium 0.83 0.69 - 1.07 mmol/L [facility] Blood 10/31/2023 1:37 AM EDT 10/31/2023 1:46 AM EDT Narrative Resulting Agency Comment Spec In Lab Rosa Cornejo MD CHEMISTRY ORDERABLE S Performing Organization Address [facility] Co de Phone Number [facility] [place] [address] * Basic Metabolic Panel (non-fasting) (10/31/2023 1:37 AM EDT) Pathologist [facility] Glucose 114 65 - 199 mg/dL BAR[facility] [...] CHEMISTRY ORDERABLE S [facility] [place] [address] * (ABNORMAL) Troponin (10/31/2023 1:37 AM EDT) [...] troponin value can be found in the [facility] Laboratory Test Catalog Troponin - [facility] Test Catalog Reference: Fourth Zachary Definition of Myocardial Infarction. Journal of the [place] College [employer] 2018;72:6674-5309 Blood 10/31/2023 1:37 AM EDT 10/31/2023 1:46 AM EDT Narrative Resulting Agency Comment Spec In Lab Rosa Cornejo MD CHEMISTRY ORDERABLE S Performing Organization Address [facility]/ZIP Co de Phone Number [facility] [place] [address] * EKG 12 Lead (10/31/2023 1:20 AM EDT) Ventricular rate 52 BPM MUSE SYSTEM Atrial Rate 52 BPM MUSE SYSTEM P-R Interval 224 ms MUSE SYSTEM QRS Duration 108 ms MUSE SYSTEM Q-T Interval 544 ms MUSE SYSTEM QTC Calculated (Bezet) 505 ms MUSE SYSTEM Calculated P Lares 90 degrees MUSE SYSTEM Calculated R Lares -57 degrees MUSE SYSTEM Calculated T Lares -63 degrees MUSE SYSTEM INTERPRETATION Sinus bradycardia with 1st degree A-V block Pulmonary disease pattern Left anterior fascicular block Moderate voltage criteria for LVH, may be normal variant ( R in aVL , [place] product ) T wave abnormality, consider inferior ischemia T wave abnormality, consider anterolateral ischemia Prolonged QT Abnormal ECG When compared with ECG of 30-OCT-2023 22:40, No significant change was found Confirmed by Charles COFFMAN, Butch ([id number]) on 11/01/2023 8:58:03 PM MUSE SYSTEM 10/31/2023 1:20 AM EDT 11/01/2023 8:58 PM EDT Rosa Cornejo MD ECG ORDERABLES Performing Organization Address City/[facility]/ZIP Co de Phone Number MUSE SYSTEM * EKG 12 Lead (10/30/2023 10:40 PM EDT) Ventricular rate 55 BPM MUSE SYSTEM Atrial Rate 55 BPM MUSE SYSTEM P-R Interval 232 ms MUSE SYSTEM QRS Duration 102 ms MUSE SYSTEM Q-T Interval 520 ms MUSE SYSTEM QTC Calculated (Bezet) 497 ms MUSE SYSTEM Calculated P Lares 75 degrees MUSE SYSTEM Calculated R Lares -53 degrees MUSE SYSTEM Calculated T Lares -57 degrees MUSE SYSTEM INTERPRETATION Sinus bradycardia [...] Chest One View (10/30/2023 10:10 PM EDT) [employer] WORKSTATION ID [id number] DH RAD Anatomical Region Laterality Modality Chest [...] low lung volumes. Findings similar to senior principal process engineer radiograph from CT 10/30/2023. Thank you for letting us participate in the care of this patient. ??If you are a health care provider and have any questions regarding this report, please contact the number below. ??For patients who have questions please contact the health childcare center administrator that requested your imaging first. ? Narrative [...] low lung volumes. Findings similar to senior principal process engineer radiograph from CT 10/30/2023. Thank you for letting us participate in the care of this patient. If youare a health care provider and have any questions regarding this report,please contact the number below. For patients who have questions please contactthe health childcare center administrator that requested your imaging first. Rosa Cornejo MD IMG DX ORDERABLES * Green Tube HOLD (10/30/2023 10:05 PM EDT) Pathologist [facility] Green Hold Sample in lab. [facility] Blood Venous Draw / Unknown 10/30/2023 10:05 PM EDT 10/30/2023 10:13 PM EDT Qamar Gallardo MD CHEMISTRY ORDERABLES [facility] [place] [address] * (ABNORMAL) Differential, Automated (10/30/2023 10:05 PM EDT) Pathologist [facility] Neutrophil % 76.6 % [facility] Neutrophil Absolute 6.94(H) 1.70 - 6.10 x10(3)/mc L [facility] Lymph % 15.4 % [facility] Lymphocytes Abs 1.4 0.9 - 3.2 x10(3)/mc L [facility] Monocyte % 6.1 % [facility] Monocyte Abs 0.6 0.3 - 0.9 x10(3)/mc L [facility] Eos % 1.1 % [facility] Eosinophils Abs 0.1 0.0 - 0.4 x10(3)/mc L [facility] Basophil % 0.6 % [facility]ENTRAL [...] HEMATOLOGY ORDERABLE S [facility] [place] [address] * (ABNORMAL) Hemogram (10/30/2023 10:05 PM EDT) White Blood Cell 9.0 4.0 - 9.5 x10(3)/mc L [facility] NRBC% auto 0.0 % [facility] NRBC Absolute 0.000 0.000 - 0.000 x10(3)/mc L [facility] Blood 10/30/2023 10:0 5 PM EDT 10/30/2023 10:12 PM EDT Narrative Resulting Agency Comment Spec In Lab Qamar Gallardo MD HEMATOLOGY ORDERABLE S Performing Organization Address [facility] Co de Phone Number [facility] [place] [address] * Hemoglobin A1c (10/30/2023 10:05 PM EDT) [...] Mellitus, Diabetes Care 2013; 36: Suppl. 1, S67-68 Estimated Average Glucose See note mg/dL [facility] Comment: Estimated Average Glucose not appropriate for patients over 70 years of age. Blood 10/30/2023 10:0 5 PM EDT 10/30/2023 10:12 PM EDT Narrative Resulting Agency Comment Spec In Lab Rosa Cornejo MD CHEMISTRY ORDERABLE S Performing Organization Address [facility] Co de Phone Number [facility] [place] [address] * Lipid Panel (Reflex Direct LDL) (10/30/2023 10:05 PM EDT) Cholesterol, Total 218 mg/dL [facility] Comment: Desirable: ? <200 mg/dL Borderline High: 200-239 mg/dL Higher: ?>cj=197 mg/dL Triglyceride 46 mg/dL [facility] Comment: Normal: ?<150 mg/dL Borderline High: 150-199 mg/dL High: ?200-499 mg/dL Very High: ? >nm=613 mg/dL HDL Cholesterol 64 mg/dL [facility] Comment: Females: High Risk: <50 mg/dL Males: High Risk: <40 mg/dL LDL Cholesterol 145 mg/dL [facility] Comment: Desirable: ? <100 mg/dL Above Desirable: 100-129 mg/dL Borderline High: 130-159 mg/dL High: ?160-189 mg/dL Very High: ? >ym=039 mg/dL Lipid Interpretation See Note [facility] [...] Guidelines (most recently Feliciano et al. [facility] 03/23/22): For individuals with atherosclerotic cardiovascular disease (ASCVD)or LDL >ld=687 mg/dL, use a high-intensity statin (40-80 mg [...] ORDERABLE S Performing Organization Address [facility] Co de Phone Number [facility] [place] [address] * TSH [place] (10/30/2023 10:05 PM EDT) Thyroid Stimulating Hormone 3.35 0.27 - 4.20 mcIU/mL [facility] Comment: Reference Interval (mcIU/mL): Females: ??First Trimester: 0.23-3.88 ??Second Trimester: 0.22-3.90 ??Third Trimester: 0.44-4.66 Blood 10/30/2023 10:0 5 PM EDT 10/30/2023 10:12 PM EDT Narrative Resulting Agency Comment Spec In Lab Rosa Cornejo MD CHEMISTRY ORDERABLE S Performing Organization Address [facility] Co de Phone Number [facility] [place] [address] * pro-Brain Natriuretic Peptide (10/30/2023 10:05 PM EDT) NT-proBNP 375 <=449 pg/mL [facility] Blood 10/30/2023 10:0 5 PM EDT 10/30/2023 10:12 PM EDT Narrative Resulting Agency Comment Spec In Lab Rosa Cornejo MD CHEMISTRY ORDERABLE S [facility] [place] [address] * (ABNORMAL) Comprehensive metabolic panel (non-fasting) (10/30/2023 10:05 PM EDT) Glucose 121 65 - 199 mg/dL [facility] [...] MD CHEMISTRY ORDERABLE S Performing Organization Address City/[facility]/ZIP Co de Phone Number [facility] [place] [address] * Phosphorus (10/30/2023 10:05 PM EDT) Phosphorus 3.3 2.5 - 4.5 mg/dL [facility] Blood 10/30/2023 10:0 5 PM EDT 10/30/2023 10:12 PM EDT Narrative Resulting Agency Comment Spec In Lab Rosa Cornejo MD CHEMISTRY ORDERABLE S Performing Organization Address City/[facility]/ZIP Co de Phone Number [facility] [place] [address] * Magnesium (10/30/2023 10:05 PM EDT) Magnesium 0.86 0.69 - 1.07 mmol/L [facility] Blood 10/30/2023 10:0 5 PM EDT 10/30/2023 10:12 PM EDT Narrative Resulting Agency Comment Spec In Lab Rosa Cornejo MD CHEMISTRY ORDERABLE S Performing Organization Address City/[facility]/ZIP Co de Phone Number [facility] [place] [address] * (ABNORMAL) Troponin (10/30/2023 10:05 PM EDT) [facility] Troponin-T, High Sensitivity 214(H) <=14 ng/L [facility] [...] troponin value can be found in the [facility] Laboratory Test Catalog Troponin - [facility] Laboratory Test Catalog Reference: Fourth Zachary Definition of Myocardial Infarction. Journal of the [place] [employer] 2018;72:5275-5568 Blood 10/30/2023 10:0 5 PM EDT 10/30/2023 10:12 PM EDT Narrative Resulting Agency Comment Spec In Lab Rosa Cornejo MD CHEMISTRY ORDERABLE S [facility] [place] [address] * EKG 12 Lead (10/30/2023 8:21 PM EDT) [facility] Ventricular rate 49 BPM MUSE SYSTEM Atrial Rate 49 BPM MUSE SYSTEM P-R Interval 230 ms MUSE SYSTEM QRS Duration 96 ms MUSE SYSTEM Q-T Interval 526 ms MUSE SYSTEM QTC Calculated (Bezet) 475 ms MUSE SYSTEM Calculated P [place] 98 degrees MUSE SYSTEM Calculated R [place] -48 degrees MUSE SYSTEM Calculated T [place] -51 degrees MUSE SYSTEM INTERPRETATION Sinus bradycardia with 1st degree A-V block Incomplete right bundle branch block Left anterior fascicular block Moderate voltage criteria for LVH, may be normal variant ( R in aVL , [place] product ) T wave abnormality, consider inferior [...] last 24 to 72 hours., Routine 1333 ([facility] Hold - Provider: Admin Adt - Reason: Transfer to a Procedural area)1548 ([facility] Unhold - Provider: Admin Adt) sodium chloride 0.9 % (flush) (BD PosiFlush Normal Saline 0.9) flush 5-20 mL 5-20 mL, Intravenous, EVERY 1 MIN PRN, Starting on 10/30/23 at 2208, Until Amna 11/03/23 at 1913, flush, Flush pertains to all indwelling lines. Flush per protocol found in the job aid using the link provided on this medication record., Routine 1333 ([facility] Hold - Provider: Admin Adt - Reason: Transfer to a Procedural area)1548 ([facility] Unhold - Provider: Admin Adt) documented in this encounter Additional Health Concerns Infection Onset Date Last Indicated Resolved Time Rule Out Respiratory 11/02/2023 11/02/2023 024 12:22 PM EDT Rule Out COVID-19 11/02/2023 11/02/2023 11/02/2023 12:22 PM EDT documented as of this encounter Care Teams Outreach And Education Social Worker Relationship Specialty Start Date End Date Rosie Mathews MD [address] [place] [address] PCP - General Family Medicine 11/25/17 11/23/23 documented as of this encounter
--- OUTSIDE RECORDS SUMMARY | 2024-02-17 10:30 | XMS_ITS | Clinical Summary ---
Author Organization [facility] Address [facility] [place] [address] Care Team Providers Care Prize Fighter Name Role Phone Masood Pierson MD Primary Care Provider [phone] Allergies Active Allergy Reactions Criticality Noted Date [...] Prox 60 Mid 80 3.5 x 15 Eleanor 3.5 x 15 Eleanor RCA Mid AoCTO. Collats from Cx 4.0 x 38 Eleanor NB: RCA initially intervened; Cx 2 days [...] Care Team Description 12/16/2023 Telephone Cardiology at [address] [address] Izaiah Meyer MD 11/24/2023 10:40 AM EDT Office Visit Cardiology at [address] [address] Izaiah Meyer MD ASCVD (arteriosclerotic cardiovascular disease); Cardiomyopathy, ischemic; Ascending aorta dilatation; Hyperpiesia 11/24/2023 Travel 11/18/2023 Telephone Cardiology at [address] [address] Cheryl Guzman MD 11/18/2023 [place] [address] from Last 3 Months Social History Tobacco Use Types Packs/Day Years Used Date Smoking Tobacco: Former Smokeless Tobacco: Never Alcohol Use Standard Drinks/Week Comments Not Currently 0 (1 standard drink = 0.6 oz pur e alcohol) [facility] Utilities Answer Date Recorded In the past 12 months has th e [employer], gas, oil, or water [employer] threatened to shut off services in your [...] AM EDT Office Visit Cardiology at [address] [place] [phone] Izaiah Meyer MD [facility] [place] [address] Health Maintenance Due Date Last Done Comments [...] (Bezet) 444 ms MUSE SYSTEM Calculated P [place] 79 degrees MUSE SYSTEM Calculated R [place] -39 degrees MUSE SYSTEM Calculated T [place] -49 degrees MUSE SYSTEM INTERPRETATION Sinus bradycardia [...] Anterolateral leads Confirmed by MD Meyer Daniel ([id number]) on 12/10/2023 2:50:44 PM MUSE SYSTEM 11/24/2023 [...] Status decision made by: Patient Care Teams Prize Fighter Relationship Specialty Start Date End Date Masood Pierson MD [address] [place] [address] PCP - General Family Medicine 11/24/23
--- OUTSIDE RECORDS SUMMARY | 2024-02-17 10:30 | XMS_ITS | Encounter Summary ---
Author Organization [facility] Address [facility] [address] Care Team Providers Care Library Services Dean Name Role Phone Rosie Mathews MD Primary Care Provider [phone] Reason for Visit * Reason Onset Date Comments Referral 11/03/2023 Coronary Artery Disease 11/03/2023 Encounter Details Date Type Department Care Team (Late st Contact Info) Description 11/03/2023 Telephone Cardiology at [address] [address] Andressa Machado, global compensation manager; Coronary Artery Disease Social History Tobacco Use Types Packs/Day Years Used Date Smoking Tobacco: Former Smokeless Tobacco: Never Alcohol Use Standard Drinks/Week Comments Not Currently 0 (1 standard drink = 0.6 oz pur e alcohol) [facility] Utilities Answer Date Recorded In the past 12 months has e [employer], gas, oil, or water [employer] threatened to shut off services in your [...] in a jail (including now)? No 11/01/2023 IPV Inpatient Questions [...] were not included. Heart and Vascular Clinics [facility] [address] [place] [id number] Lyla was referred to this Cardiology clinic in [place] for post cardiac cath 10/31 for STEMI follow up as part of her [place] [facility] documented in this encounter Plan of Treatment Upcoming Encounters Date Type Department Care Team (Late st Contact Info) Description 03/29/2024 11:20 AM EDT Office Visit Cardiology at [address] [place] [address] Izaiah Meyer MD [facility] [place] [address] documented as of this encounter Visit Diagnoses Not on filedocumented in this encounter Care Teams Library Services Dean Relationship Specialty Start Date End Date Rosie Mathews MD [address] [place] [address] PCP - General Family Medicine 11/25/17 11/23/23 documented as of this encounter
--- OUTSIDE RECORDS SUMMARY | 2024-02-17 10:31 | XMS_ITS | Encounter Summary ---
Author Organization [facility] [place] [address] Care Team Providers Care Hot Strip Mill Inspector Name Role Phone Rosie Mathews MD Primary Care Provider [phone] Encounter Details Date Type Department Care Team (Late st Contact Info) Description 10/30/2023 5:00 PM EDT Ancillary Procedure [place] [phone] Izaiah Meyer MD [facility] [place] [address] Social History Tobacco Use Types Packs/Day Years Used Date Smoking Tobacco: Former Smokeless Tobacco: Never Alcohol Use Standard Drinks/Week Comments Not Currently 0 (1 standard drink = 0.6 oz pur e alcohol) [facility] Inpatient Questions Answer Date Recorded Does [...] AM EDT Office Visit Cardiology at [address] [place] [address] Izaiah Meyer MD [facility] [place] [address] documented as of this encounter Procedures Procedure Name Priority Date/Time Associated Diagnosis Comments FILM LIBRARY STORAGE ONLY CT CHEST Routine 10/30/2023 4:59 PM EDT documented in this encounter Results * Film Library- Storage Only CT Chest (10/30/2023 4:59 PM EDT) Narrative [facility] 10/30/2023 4:59 PM EDT This exam is auto-finalizing. It's purpose is for storage only. Izaiah Meyer MD IMG FILM LIBRARY ORD ERABLES Performing Organization Address City/State/[facility] Co de Phone Number [place], [place] documented in this encounter Visit Diagnoses Not on filedocumented in this encounter Care Teams Hot Strip Mill Inspector Relationship Specialty Start Date End Date Rosie Mathews MD [address] [place] [address] PCP - General Family Medicine 11/25/17 11/23/23 documented as of this encounter
--- OUTSIDE RECORDS SUMMARY | 2024-02-17 10:31 | XMS_ITS | Encounter Summary ---
Author Organization [facility] [place] [address] Care Team Providers Care Nursery School Attendant Name Role Phone Rosie Mathews MD Primary Care Provider [phone] Reason for Visit * Auth/Cert (Routine) Specialty Diagnoses / Procedures Referred By Contac t Referred To Contact Diagnoses Unstable angina Procedures [facility] [employer] [facility] [employer] [facility] [facility] Referral ID Status Reason Start Date Expiration Date Visits Re quested Visits Authorized [id number] 1 1 Encounter Details Date Type Department Care Team (Latest Contact Info) Description 10/30/2023 5:00 PM EDT - 10/30/2023 5:10 PM EDT Hospital En[place] [phone] Rosa Menjivar MD [facility] [place] [address] Discharge Disposition: Home Social History Tobacco Use Types Packs/Day Years Used Date Smoking Tobacco: Former Smokeless Tobacco: Never Alcohol Use Standard Drinks/Week Comments Not Currently 0 (1 standard drink = 0.6 oz pur e alcohol) [facility] Inpatient Questions Answer Date Recorded Does [...] 11:20 AM EDT Office Visit Cardiology at [address] [place] [address] Izaiah Meyer MD [facility] [place] [address] documented as of this encounter Visit Diagnoses Not on filedocumented in this encounter Care Teams Nursery School Attendant Relationship Specialty Start Date End Date Rosie Mathews MD [address] [place] [address] PCP - General Family Medicine 11/25/17 11/23/23 documented as of this encounter
--- OUTSIDE RECORDS SUMMARY | 2024-02-17 10:31 | XMS_ITS | Encounter Summary ---
Author Organization [facility] [place] [address] Care Team Providers Care Computer Programming Manager Name Role Phone Rosie Mathews MD Primary Care Provider [phone] Reason for Visit * Auth/Cert (Routine) Specialty Diagnoses / Procedures Referred By Contbruce t Referred To Contact Diagnoses Unstable angina Chest pain NSTEMI Procedures CARDIAC CATHETERIZATION Rosa Dewey MD [facility] [place] [address] [facility] Referral ID Status Reason Start Date Expiration Date Visits Re quested Visits Authorized [id number] 1 1 Encounter Details Date Type Department Care Team (Late st Contact Info) Description 11/01/2023 3:33 PM EDT - 11/01/2023 5:03 PM EDT [place] [address] Rosa Dewey MD [facility] [address] [place], [place] [id number] CARDIAC CATHETERIZATION Social History Tobacco Use Types Packs/Day Years Used Date Smoking Tobacco: Former Smokeless Tobacco: Never Alcohol Use Standard Drinks/Week Comments Not Currently 0 (1 standard drink = 0.6 oz pur e alcohol) [facility] Utilities Answer Date Recorded In [...] for hypertension and hyperlipidemia who presented to [facility] as a transfer from [facility] as a possible STEMI alert with acute onset chest pain. The patient reports that her symptoms initially began on Tuesday when she was walking to [facility] and experienced bilateral arm heaviness while walking with no other symptoms. Then, this afternoon shereports developing bilateral achy shoulder pain and nonradiating substernal left-sided chest pressure that was 7/10 in severity after coming home from [facility]. The patient denies any associated fevers, chills, [...] on repeat, her TRU resolved. Cardiology at [facility] was consulted for transfer; the patient was loaded with aspirin 324 mg and ticagrelor 180 mg, started on a heparin drip, and given nitroglycerin with improvement in chest pain. Upon arrival to [facility], the patient was taken directly to the Boat Loader. Two lesions were discovered: one in the prox RCA (felt to almost be a NUCLEAR RADIATION ENGINEER but they were able to wire, balloon, [...] dose administered prior to arrival in the brine room laborer. Recommended anti-platelet/anti-thrombotic regimen: Continue aspirin 81 [...] and low lung volumes. Findings similar to bagman/woman radiograph from CT 10/30/2023. Pending Studies and [...] 10:40 AM Izaiah Meyer MD Cardiology at [place] Arrive at: [facility] [address] [phone] Future Orders Complete By Expires Referral to Cardiac Rehab [[id number] Custom] As directed Process Instructions: If no progress note charted, please enter Clinical details in comments. Scheduling Instructions: Questions: My question or request is: STEMI. Cardiac rehab at [facility]. Referral to Home Health [[id number] Custom] As directed Process Instructions: If no progress note charted, please enter Clinical details in comments. Scheduling Instructions: Comments: Please evaluate Adin Santos for admission to Home Health. [address] [facility] [address] (home) Date of : 1940 Inpatient DOCUMENTATION FOR VNA SERVICES (INCLUDING THOSE PATIENTS WITH MEDICARE COVERAGE REQUIRING HOME VNA SERVICES AND/OR HOSPICE SERVICES) PATIENT'S LOCATION: Adin Santos [address] [facility] [address] (home) Cell: Telephone Information: Robotics Application Engineer's Name: self In discussion with the attending physician, it is certified that this patient is under their care and that they, or a Nurse Practitioner, Clinical Nurse specialist or Physician Derrick Boat Runner who is working directly with them, had [...] regarding health issues HOME HEALTH CARE AGENCY: [facility] [address] [address] START OF CARE: within 24-48 hours of [...] Mathews MD [address] / [facility] [address] . All A agencies which [...] MD / Dr. Masood Pierson [address] [place] [address] 11/09/23 1:55 PM arrival for 2:10 PM appointment Senior Controls Engineer: Izaiah Meyer MD [address] [place] [id number] , 11/24/2023 10:40 AM Your Inpatient Medical Team at [facility] Name(s) of your inpatient provider(s): Attending physician: Rosa Hugo MD Resident physicians: Emile Robles MD; Elmer Tamez MD If you have non-emergent questions, prior to your follow-up visit call: Tuesday-Tuesday between the hours of 8AM-5PM please call the Cardiology Clinic [phone] to speak with a nurse. All other hours please call the Hospital Factory Focus Technician [phone] and ask to speak to the apartment house manager on-call. Your Primary Care Provider Rosie Mathews MD [phone] For questions regarding this document or issues relating to this hospitalization on the Medical Service, please contact your inpatient physician through the [facility] Factory Focus Technician . Issues afterhours and on weekends will be handled by the Senior Controls Engineer staff on-call. Associated attestation - Rosa [...] Mathews MD / Dr. Masood Pierson [address] [place] [address] 11/09/23 1:55 PM arrival for 2:10 PM appointment Senior Controls Engineer: Izaiah Meyer MD [address] [place] [address] , 11/24/2023 10:40 AM Your Inpatient Medical Team at [facility] Name(s) of your inpatient provider(s): Attending physician: Rosa Hugo MD Resident physicians: Emile Robles MD; Elmer Tamez MD If you have non-emergent questions, prior to your follow-up visit call: Tuesday-Tuesday between the hours of 8AM-5PM please call the Cardiology Clinic [phone] to speak with a nurse. All other hours please call the Hospital Factory Focus Technician [phone] and ask to speak to the apartment house manager on-call. Your Primary Care Provider Rosie Mathews MD [phone] documented in this encounter Medications at Time [...] for hypertension and hyperlipidemia who presented to [facility] as a transfer from [facility] [...] for hypertension and hyperlipidemia who presented to [facility] as a transfer from [facility] [...] Resident on Cardiology Service Cardiology S1 (Pager [phone]) Note written in conjunction with Claudio Perla [facility] Medical Student, MS3 Associated attestation [...] Nirmala Webb - 11/01/2023 11:25 AM EDT Public Service Administrator Encounter Note Patient Name: Adin Santos : [id number] MR#: [id number] Admit Date: 10/30/2023 5:11 PM Hospital Day 2 days Narrative: Self initiated visit to patient for Spiritual support in a regular unit rounds. Assessment: Patient is in the bathroom at the time of this visit. Not a good time for Director On Air visit. Intervention and Outcome: An attempted visit [...] for hypertension and hyperlipidemia who presented to [facility] as a transfer from [facility] [...] and low lung volumes. Findings similar to bagman/woman radiograph from CT 10/30/2023. Scheduled Medications: [AUG [...] for hypertension and hyperlipidemia who presented to [facility] as a transfer from [facility] [...] Resident on Cardiology Service Cardiology S1 (Pager [phone]) Note written in conjunction with Claudio Perla [facility] Medical Student, MS3 Associated attestation [...] for hypertension and hyperlipidemia who presented to [facility] as a transfer from [facility] as a possible STEMI alert with acute onset chest pain. Active Problems: Active Hospital Problems Diagnosis Unstable angina Resolved Hospital Problems No resolved problems to display. 24 hr events: - Cath'd yesterday with lesion in the proximal RCA (initially thought it was NUCLEAR RADIATION ENGINEER but they were ableto wire, balloon and [...] and low lung volumes. Findings similar to bagman/woman radiograph from CT 10/30/2023. TTE (10/30): Interpretation [...] for hypertension and hyperlipidemia who presented to [facility] as a transfer from [facility] [...] Resident on Cardiology Service Cardiology S1 (Pager [phone]) Note written in conjunction with Claudio Perla [facility] Medical Student, MS3 Associated attestation [...] PCP: Rosie Mathews MD PCP phone number: [phone] Date of Admission: 10/30/2023 ( Hospital Day 0 days ) Attending:Rosa Cornejo MD ID: Adin Santos is a 83 y.o. female PMH significant for hypertension and hyperlipidemia who presented to [facility] as a transfer from [facility] as a possible STEMI alert with acute onset chest pain. The patient reports that her symptoms initially began on Tuesday when she was walking to [facility] and experienced bilateral arm heaviness while walking with no other symptoms. Then, this afternoon shereports developing bilateral achy shoulder pain and nonradiating substernal left-sided chest pressure that was 7/10 in severity after coming home from [facility]. The patient denies any associated fevers, chills, [...] on repeat, her TRU resolved. Cardiology at [facility] was consulted for transfer; the patient was loaded with aspirin 324 mg and ticagrelor 180 mg, started on a heparin drip, and given nitroglycerin with improvement in chest pain. Upon arrival to [facility], the patient was taken directly to the Boat Loader. 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 Findings similar to bagman/woman radiograph from CT 10/30/2023. Assessment & Plan: Adin Santos is a 83 y.o. female PMH significant for hypertension and hyperlipidemia who presented to [facility] as a transfer from [facility] [...] HTN HLD transferred with chest from [facility]. BP 217/68, HR 71 EKG [...] information for follow-up Home Health & Hospice, [place] [address] TANESHA BOYCE confirmed with [facility] that they will see the patient [...] N/A Patient is insured through: Primary Insurance: [employer] MA[employer]ED MEDICARE Payor: [employer] MANAGED MEDICARE / Plan: [employer]ED MEDICARE PPO / Product Type: *No [...] MOVING FORWARD: Monitor Tele, control BP, monitor brine room laborer sites, D/C Planning INDIVIDUALIZED FALL PREVENTION [...] an outpatient cardiac rehabilitation program at [facility] was discussed. Patient agrees to [...] and above on RA. PT went to brine room laborer today. Left fem site oozed throughout [...] MOVING FORWARD: Monitor Tele, control BP, monitor brine room laborer sites, D/C Planning INDIVIDUALIZED FALL PREVENTION [...] From: Transfer from another hospital Location: [facility] Reason for Hospitalization: chest pain Covid Vaccination Status: 1st, 2nd & booster Past medical History: No past medical history on file. Hospitalizations Within the Past 30 Days: no previous admission in last 30 days Current Decision-Making Capacity: Self If AD's have not been completed the following surrogate would be surrogate decision maker per [place] surrogate decision making law. (Only good for 180 days) Any patient receiving care in [place] must abide by [place] law. The hierarchy for surrogate decision making [...] (i) The agent with financial power of health care attorney or a conservator appointed in accordance [...] has the electric, gas, oil, or water [employer] threatened to shut off services in your [...] toilet seat Home Address confirmed as: [address] [facility] [address] Social & Family Supports: All names listed below confirmed with patient as current and correct Extended Emergency Contact Information Primary Emergency Contact: Iris Downing Address: [address] [place], [place] [address] [place] [address] Mobile Relation: Child Secondary Emergency Contact: Karen More Address: [address] [facility] Mobile Relation: Child Current Care Provided by: self Provides Primary Care For: no one Caregiver if needed: child(emmanuel), adult Quality of Family relationships: involved, supportive Community Resources being provided currently: other (see comments) (receives [facility] services at home (1xweekly)) Behavioral Health History: [...] Specific Information: N/A Health/Prescription Coverage: Primary Insurance: [employer] MANAGED MEDICARE Payor: [employer] MA[employer]GED MEDICARE / Plan: [employer]ED MEDICARE PPO / Product Type: *No Product type* / Secondary Insurance: N/A Prescription Coverage: Yes Preferred Pharmacy: [id number] - [place], [place] - [address] [place] [id number] [place] Status: Patient is a : No Primary Care Provider listed: Masood Pierson MD [phone] Patient/Caregiver Goals of Treatment: home when MR Potential Needs for Transition of Care: home health care Agency Referrals: Not Applicable I have met with the patient to: discuss discharge planning needs. provide the [facility], Office of Care Management letter from the Continuous Process Tanner [employer] pertaining to rehab referrals. provide a letter describing our affiliations within the [facility] and educate about their right to choose where referrals are sent. provide a list of Home Health Agencies / Durable Medical Equipment vendors which serve their preferred geographic area. provided patient with [facility] Star Quality Rating handout. They have requested referrals to: [facility] [address] [place] [address] Note routed to a Radiologic Technology Teacher who will communicate referrals to facilities and [...] BP, NPO at MD for cath, monitor brine room laborer sites, D/C Planning INDIVIDUALIZED FALL PREVENTION [...] 11:20 AM EDT Office Visit Cardiology at [address] [place] [address] Izaiah Meyer MD [facility] [place] [address] Scheduled Referrals Name Type Priority Associated Diagnoses [...] 3:46 AM EDT) Neutrophil % 63.3 % [facility] Neutrophil Absolute 5.28 1.70 - 6.10 x10(3)/mc L [facility] Lymph % 15.2 % [facility] Lymphocytes Abs 1.3 0.9 - 3.2 x10(3)/mc L [facility] Monocyte % 16.9 % [facility] Monocyte Abs 1.4(H) 0.3 - 0.9 x10(3)/mc L [facility] Eos % 3.7 % [facility] Eosinophils Abs 0.3 0.0 - 0.4 x10(3)/ L [facility] Basophil % 0.5 % [facility] Baso Absolute 0.0 0.0 [...] HEMATOLOGY ORDERABLE S [facility] [place] [address] * (ABNORMAL) Hemogram (11/03/2023 3:46 AM EDT) [...] Platelet 181 145 - 357 x10(3)/mc L [facility] RDW Standard Deviation 54.7(H) 37.0 - 46.0 fL [facility] RDW coefficient of variation 14.6(H) 11.5 - 14.1 % [facility] Mean Platelet Volume 11.2 7.6 - 12.9 fL [facility] NRBC% auto 0.0 % [facility] NRBC Absolute 0.000 0.000 - 0.000 x10(3)/mc L [facility] Blood 11/03/2023 3:46 AM EDT 11/03/2023 4:11 AM EDT Narrative Resulting Agency Comment Spec In Lab Qamar Gallardo MD HEMATOLOGY ORDERABLE S Performing Organization Address City/[facility]/ZIP Co de Phone Number [facility] [address] * Phosphorus (11/03/2023 3:46 AM EDT) Pathologist [facility] Phosphorus 3.2 2.5 - 4.5 mg/dL [facility] Comment:result rechecked-KS Blood 11/03/2023 3:46 AM EDT 11/03/2023 4:11 AM EDT Narrative Resulting Agency Comment Spec In Lab Rosa Cornejo MD CHEMISTRY ORDERABLE S Performing Organization Address [facility] Co de Phone Number [facility] [address] * Magnesium (11/03/2023 3:46 AM EDT) [facility] Magnesium 0.90 0.69 - 1.07 mmol/L [facility] Blood 11/03/2023 3:46 AM EDT 11/03/2023 4:11 AM EDT Narrative Resulting Agency Comment Spec In Lab Rosa Cornejo MD CHEMISTRY ORDERABLE S Performing Organization Address [facility] Co de Phone Number [facility] [address] * (ABNORMAL) Basic Metabolic Panel (non-fasting) (11/03/2023 3:46 AM EDT) Pathologist [facility] Glucose 105 65 - 199 mg/dL [facility] [...] CHEMISTRY ORDERABLE S [facility] [place] [address] * EKG 12 Lead (11/02/2023 12:44 PM EDT) Ventricular rate 83 BPM MUSE SYSTEM Atrial Rate 83 BPM MUSE SYSTEM P-R Interval 216 ms MUSE SYSTEM QRS Duration 90 ms MUSE SYSTEM Q-T Interval 384 ms MUSE SYSTEM QTC Calculated (Bezet) 451 ms MUSE SYSTEM Calculated P Argos 92 degrees MUSE SYSTEM Calculated R Argos -51 degrees MUSE SYSTEM Calculated T Argos -33 degrees MUSE SYSTEM INTERPRETATION Sinus rhythm with 1st degree A-V block with Premature atrial complexes Left axis deviation Moderate voltage criteria for LVH, may be normal variant ( R in aVL , Ifeanyi product ) Anterolatera l infarct (cited on or before 01-NOV-2023) Abnormal ECG When compared with ECG of 01-NOV-2023 22:10, Premature atrial complexes are now Present CT interval has increased Vent. rate has decreased BY ??56 BPM Confirmed by MD Kevin, Esteban ([id number]) on 11/02/2023 1:32:10 PM MUSE SYSTEM 11/02/2023 12:4 4 PM EDT 11/02/2023 1:32 PM EDT Rosa Hugo MD ECG ORDERABLES MUSE SYSTEM * (ABNORMAL) Urinalysis Microscopic Exam (11/02/2023 11:40 AM EDT) RBC, Urine <1 0 - 4 /HPF [facility] Comment: Interpret results with caution, microscopic results are from suboptimal specimen volume WBC, Urine 16(H) 0 - 5 /HPF [facility] Comment: Interpret results with caution, microscopic results are from suboptimal specimen volume Bacteria, Urine Many(A) None /HPF [facility] Squamous Epithelial Cells Raw Data, Urine 10(H) <=4 /HPF [facility] Hyaline Casts, Urine 2 0 - 2 /LPF [facility] Comment: Interpret results with caution, microscopic results are from suboptimal specimen volume Clean Catch Urine 11/02/2023 11:40 AM EDT 11/02/2023 12:05 PM EDT Narrative Resulting Agency Comment Spec In Lab Elmer Tamez MD URINE ORDERABLES [facility] [address] * (ABNORMAL) Urinalysis with reflex Culture (11/02/2023 [...] Cloudy(A) Clear [facility] Specific [place] Urine Automated >=1.030(A) 1.005 - 1.030 [facility] Color, Urine Dipstick Dark Yellow Yellow [facility] Reflex to Culture Yes [facility] Clean Catch Urine 11/02/2023 11:40 AM EDT 11/02/2023 12:04 PM EDT Narrative Resulting Agency Comment Spec In Lab Rosa Hugo MD URINE ORDERABLES [facility] [address] * Respiratory Panel PCR (11/02/2023 10:15 AM EDT) Respiratory Panel Source FIRE FIGHTERS DISPATCHER Swab [facility] Respiratory Panel PCR Negative Negative [facility] Comment: Respiratory Panels are performed on the [employer], using multiplexed PCR nucleic acid detection. ??Negative [...] performed using the [employer] Respiratory Panel 2.1 (DoctorBase) as authorized by the FDA issued Emergency Use Authorization (EUA). This panel also tests for multiple other viral and bacterial pathogens. This assay is intended for In-vitro Diagnostic (IVD) use with nasopharyngeal swabs in viral transport media. The assay is performed based on the instructions for use and additional guidance provided by the FDA. Testing is performed in laboratories within the [facility], each of which is certified under the [...] fact sheets at the following FDA website: https://www.fda.gov/medical-devices/fabkrzrjmti-fynmbub-9373-wpzjp-14-phhelmval- use-a bferumlpfstnt-ozprnrq-bhhvbym/fvdvp-hhffatxoriq-xtjy Human Metapneumovirus Not Detected Not Detected [facility] [...] GEN ERAL ORDERABLES [facility] [place] [address] * XR Chest One View (11/02/2023 2:51 AM EDT) WORKSTATION ID [id number] RAD Anatomical Region Laterality Modality Chest N/A [...] who have questions please contact the health critical care physician assistant that requested your imaging first. ? Narrative [...] the resident's interpretationand agree with the findings, Oamira Tran MD at 11/02/2023 4:56 AM Thank you for letting us participate in the care of this patient. If youare a health care provider and have any questions regarding this report,please contact the number below. For patients who have questions please contactthe health critical care physician assistant that requested your imaging first. Rosa Hugo MD IMG DX ORDERABLES * (ABNORMAL) Differential, Automated (11/02/2023 12:35 AM EDT) Neutrophil % 76.5 % [facility] Neutrophil Absolute 7.69(H) 1.70 - 6.10 x10(3)/mc L [facility] Lymph % 8.3 % [facility] Lymphocytes Abs 0.8(L) 0.9 - 3.2 x10(3)/mc L [facility] Monocyte % 12.9 % [facility] Monocyte Abs 1.3(H) 0.3 - 0.9 x10(3)/mc L [facility] Eos % 1.4 % [facility] Eosinophils Abs 0.1 0.0 - 0.4 x10(3)/mc L [facility] Basophil % 0.4 % [facility] Baso Absolute 0.0 0.0 [...] HEMATOLOGY ORDERABLE S [facility] [address] * (ABNORMAL) Hemogram (11/02/2023 12:35 AM EDT) White Blood Cell 10.0(H) 4.0 - 9.5 x10(3)/ L [facility] [...] Platelet Volume 11.4 7.6 - 12.9 fL [facility] NRBC% auto 0.0 % [facility] NRBC Absolute 0.000 0.000 - 0.000 x10(3)/mc L [facility] Blood 11/02/2023 12:3 5 AM EDT 11/02/2023 12:43 AM EDT Narrative Resulting Agency Comment Spec In Lab Qamar Gallardo MD HEMATOLOGY ORDERABLE S [facility] [address] * (ABNORMAL) Phosphorus (11/02/2023 12:35 AM EDT) Phosphorus 1.6(L) 2.5 - 4.5 mg/dL [facility] Blood 11/02/2023 12:3 5 AM EDT 11/02/2023 12:43 AM EDT Narrative Resulting Agency Comment Spec In Lab Rosa Cornejo MD CHEMISTRY ORDERABLE S Performing Organization Address City/[facility]/ZIP Co de Phone Number [facility] [address] * Magnesium (11/02/2023 12:35 AM EDT) Magnesium 0.87 0.69 - 1.07 mmol/L [facility] Blood 11/02/2023 12:3 5 AM EDT 11/02/2023 12:43 AM EDT Narrative Resulting Agency Comment Spec In Lab Rosa Cornejo MD CHEMISTRY ORDERABLE S Performing Organization Address City/[facility]/ZIP Co de Phone Number [facility] [address] * Basic Metabolic Panel (non-fasting) (11/02/2023 12:35 [...] CHEMISTRY ORDERABLE S [facility] [place] [address] * Blood culture (11/02/2023 12:35 AM EDT) Blood Culture No growth at 5 days. [facility] Blood 11/02/2023 12:3 5 AM EDT 11/02/2023 1:55 AM EDT Comment:#2 site ukn Narrative Resulting Agency Comment Spec In Lab Rosa Hugo MD MICROBIOLOGY - BLO OD ORDERABLES Performing Organization Address City/[facility]/ZIP Co de Phone Number [facility] [place] [address] * Blood culture (11/02/2023 12:15 AM EDT) Blood Culture No growth at 5 days. [facility] Blood 11/02/2023 12:1 5 AM EDT 11/02/2023 1:54 AM EDT Comment:#1site unk Narrative Resulting Agency Comment Spec In Lab Rosa Hugo MD MICROBIOLOGY - BLO OD ORDERABLES Performing Organization Address [facility] Co de Phone Number [facility] [place] [address] * EKG 12 Lead (11/01/2023 10:10 PM EDT) Ventricular rate 139 BPM MUSE SYSTEM Atrial Rate 139 BPM MUSE SYSTEM P-R Interval 168 ms MUSE SYSTEM QRS Duration 84 ms MUSE SYSTEM Q-T Interval 286 ms MUSE SYSTEM QTC Calculated (Bezet) 435 ms MUSE SYSTEM Calculated R Argos -59 degrees MUSE SYSTEM Calculated T Argos -27 degrees MUSE SYSTEM INTERPRETATION Mid-RP tachycardia, [...] interpretation Confirmed by fellow MD Bowen Ashley ([id number]) on 11/04/2023 7:57:50 AM Confirmed by MD Carrillo Danette ([id number]) on 11/04/2023 4:32:03 PM MUSE SYSTEM 11/01/2023 10:1 0 PM EDT 11/04/2023 4:32 PM EDT Rosa Cornejo MD ECG ORDERABLES MUSE SYSTEM * (ABNORMAL) Hemogram (11/01/2023 10:06 PM EDT) White Blood Cell 10.4(H) 4.0 - 9.5 x10(3)/mc L [facility] Red Blood Cell 4.11 4.00 - 5.21 x10(6)/mc L [facility] Hemoglobin 14.0 [...] Platelet 197 145 - 357 x10(3)/mc L [facility] RDW Standard Deviation 54.0(H) 37.0 - 46.0 [facility] LABORATORY RDW coefficient of variation 14.6(H) 11.5 - 14.1 % [facility] Mean Platelet Volume 11.2 7.6 - 12.9 [facility] LABORATORY NRBC% auto 0.0 % [facility] NRBC Absolute 0.000 0.000 - 0.000 x10(3)/mc L [facility] Blood 11/01/2023 10:0 6 PM EDT 11/01/2023 10:22 PM EDT Narrative Resulting Agency Comment Spec In Lab Rosa Hugo MD HEMATOLOGY ORDERAB LES [facility] [place] [id number] * POCT Glucose (11/01/2023 5:59 PM EDT) Glucose, POC 104 65 - 199 mg/dL [facility] Comment: Supplemental ranges: <140 mg/dL before meals <180 mg/dL all other times of the day Blood 11/01/2023 5:59 PM EDT 11/01/2023 5:59 PM EDT Rosa Hugo MD POINT OF CARE TEST ORDERABLES [facility] [place] [address] * POCT Glucose (11/01/2023 5:35 PM EDT) Glucose, POC 85 65 - 199 mg/dL [facility] Comment: Supplemental ranges: <140 mg/dL before meals <180 mg/dL all other times of the day Blood 11/01/2023 5:35 PM EDT 11/01/2023 5:35 PM EDT Rosa Hugo MD POINT OF CARE TEST ORDERABLES [facility] [place] [address] * EKG 12 Lead (11/01/2023 3:22 PM EDT) Ventricular rate 59 BPM MUSE SYSTEM Atrial Rate 59 BPM MUSE SYSTEM P-R Interval 220 ms MUSE SYSTEM QRS Duration 94 ms MUSE SYSTEM Q-T Interval 428 ms MUSE SYSTEM QTC Calculated (Bezet) 423 ms MUSE SYSTEM Calculated P Argos 76 degrees MUSE SYSTEM Calculated R Argos -50 degrees MUSE SYSTEM Calculated T Argos -59 degrees MUSE SYSTEM INTERPRETATION Sinus bradycardia [...] 11/02/2023 4:57 PM EDT ?[facility] ? Cardiac Catheterization/Intervention Report ? Patient Name: Adin Santos. ? Procedure Date: 11/01/2023 ? A #: [id number] ? Primary Physician: Rosa Dewey I ? Case #: [id number] ? File Name: [id number] ? Catheterization Order Number: [id number] ? [facility] ? Final Report [place], [place] ? Patient Name: ? Adin M. Goguen ?ID#: ?[id number] ? : ?1940 ? Procedure Date: ? [...] as ASA Class III. The [facility] clinical ?frailty scale is 4: Vulnerable. ? [...] procedure was Urgent. The indication for ?the brine room laborer visit is ACS greater than 24 [...] ??A premounted ? 3.50 x 15 mm Aubrey Stollings (RADHA) was deployed with a maximum ? [...] ? A premounted 3.50 x 15 mm Aubrey Stollings (RADHA) was deployed ? with a maximum [...] dose administered prior to arrival in the brine room laborer. ?Recommended anti-platelet/anti-thrombotic regimen: ?Continue aspirin 81 mg daily for indefinitely. ?Continue clopidogrel 75 mg daily for 12 months then stop. ?These recommendations are made at the time of the intervention. Patient ?and provider preferences or a changing clinical situation may require ?modification of this regimen. Consult [facility] Interventional Cardiology for [...] Procedure Note Rosa Dewey MD - 12/12/[address] [facility] Cardiac Catheterization/Intervention Report Patient Name: Adin Santos Procedure Date: 11/01/2023 A #: [id number] Primary Physician: Rosa Dewey I Case #: [id number] File Name: [id number] Catheterization Order Number: [id number] [facility] FinalReport [place], [place] Patient Name: Adin Santos ID#:[id number] :1940 Procedure Date: November 01, 2023 Case [...] diagnostic procedure was Urgent. The indicationfor the brine room laborer visit is ACS greater than 24 [...] atmospheres. Apremounted 3.50 x 15 mm Andrea Stollings (RADHA) was deployed with amaximum inflation pressure [...] The lesion was predilated with a 3.00mm [id number] MM balloon with a maximum inflation pressure of 14atmospheres. A premounted 3.50 x 15 mm Aubrey Stollings (RADHA) wasdeployed with a maximum inflation pressure [...] dose administered prior to arrival in the brine room laborer. Recommended anti-platelet/anti-thrombotic regimen: Continue aspirin 81 mg daily for indefinitely. Continue clopidogrel 75 mg daily for 12 months then stop. These recommendations are made at the time of the intervention.Patient and provider preferences or a changing clinical situation mayrequire modification of this regimen. Consult [facility] Interventional Cardiologyfor questions. [...] Glucose (11/01/2023 7:06 AM EDT) Pathologist [facility] [place] Glucose, POC 93 65 - 199 mg/dL [facility] Comment: Supplemental ranges: <140 mg/dL before meals <180 mg/dL all other times of the day Blood 11/01/2023 7:06 AM EDT 11/01/2023 7:06 AM EDT Jean Laboy MD POINT OF CARE TEST O RDERABLES [facility] [place] [address] * (ABNORMAL) Differential, Automated (11/01/2023 3:09 AM EDT) Neutrophil % 63.9 % [facility] Neutrophil Absolute 5.54 1.70 - 6.10 x10(3)/mc L [facility] Lymph % 20.0 % [facility] Lymphocytes Abs 1.7 0.9 - 3.2 x10(3)/mc L [facility] Monocyte % 11.9 % [facility] Monocyte Abs 1.0(H) 0.3 - 0.9 x10(3)/ L [facility] Eos % 3.2 % [facility] Eosinophils Abs 0.3 0.0 - 0.4 x10(3)/ L [facility] Basophil % 0.5 % [facility] Baso Absolute 0.0 0.0 [...] Immature Gran Absolute 0.04 0.00 - 0.04 x10(3)/[facility] LABORATORY Blood 11/01/2023 3:09 AM EDT 11/01/2023 3:29 AM EDT Narrative Resulting Agency Comment Spec In Lab Qamar Gallardo MD HEMATOLOGY ORDERABLE S [facility] [place] [address] * (ABNORMAL) Hemogram (11/01/2023 3:09 AM EDT) White Blood Cell 8.7 4.0 - 9.5 x10(3)/ L [facility] Red Blood Cell 3.72(L) 4.00 - 5.21 x10(6)/[facility] LABORATORY Hemoglobin 12.5 11.7 - 15.5 g/dL [...] Platelet 184 145 - 357 x10(3)/mc L [facility] RDW Standard Deviation 53.5(H) 37.0 - 46.0 fL [facility] RDW coefficient of variation 14.6(H) 11.5 - 14.1 % [facility] Mean Platelet Volume 11.3 7.6 - 12.9 fL [facility] NRBC% auto 0.0 % [facility] NRBC Absolute 0.000 0.000 - 0.000 x10(3)/mc L [facility] Blood 11/01/2023 3:09 AM EDT 11/01/2023 3:29 AM EDT Narrative Resulting Agency Comment Spec In Lab Qamar Gallardo MD HEMATOLOGY ORDERABLE S [facility] [place] [address] * Phosphorus (11/01/2023 3:09 AM EDT) Phosphorus 2.5 2.5 - 4.5 mg/dL [facility] Blood 11/01/2023 3:09 AM EDT 11/01/2023 3:29 AM EDT Narrative Resulting Agency Comment Spec In Lab Rosa Cornejo MD CHEMISTRY ORDERABLE S [facility] [place] [address] * Magnesium (11/01/2023 3:09 AM EDT) Magnesium 0.82 0.69 - 1.07 mmol/L [facility] Blood 11/01/2023 3:09 AM EDT 11/01/2023 3:29 AM EDT Narrative Resulting Agency Comment Spec In Lab Rosa Cornejo MD CHEMISTRY ORDERABLE S [facility] [place] [address] * (ABNORMAL) Basic Metabolic Panel (non-fasting) (11/01/2023 [...] MD CHEMISTRY ORDERABLE S Performing Organization Address City/[facility]/ZIP Co de Phone Number [facility] [place] [address] * (ABNORMAL) Troponin (10/31/2023 2:46 PM EDT) [...] can be found in the [facility] Laboratory Test Catalog Troponin - [facility] Laboratory Test Catalog Reference: Fourth [place] Definition of Myocardial Infarction. Journal of the [place] [employer] 2018;72:5072-1729 Blood 10/31/2023 2:46 PM EDT 10/31/2023 2:55 PM EDT Narrative Resulting Agency Comment Spec In Lab Jean Laboy MD CHEMISTRY ORDERABLES Performing Organization Address City/[facility]/ZIP Co de Phone Number [facility] [place] [address] * EKG 12 Lead (10/31/2023 1:07 PM EDT) Ventricular rate 54 BPM MUSE SYSTEM Atrial Rate 54 BPM MUSE SYSTEM P-R Interval 218 ms MUSE SYSTEM QRS Duration 92 ms MUSE SYSTEM Q-T Interval 540 ms MUSE SYSTEM QTC Calculated (Bezet) 512 ms MUSE SYSTEM Calculated P Argos 85 degrees MUSE SYSTEM Calculated R Argos -44 degrees MUSE SYSTEM Calculated T Argos -69 degrees MUSE SYSTEM INTERPRETATION Sinus bradycardia [...] Troponin (10/31/2023 11:37 AM EDT) Pathologist [facility] [place] Troponin-T, High Sensitivity 580(H) <=14 ng/L [facility] [...] can be found in the [facility] Laboratory Test Catalog Troponin - [facility] Laboratory Test Catalog Reference: Fourth [place] Definition of Myocardial Infarction. Journal of the [place] [employer] 2018;72:8418-9161 Blood 10/31/2023 11:3 7 AM EDT 10/31/2023 11:50 AM EDT Narrative Resulting Agency Comment Spec In Lab Rosa Cornejo MD CHEMISTRY ORDERABLE S [facility] [place] [address] * ECHO COMPLETE (10/31/2023 8:52 AM EDT) Anatomical Region Laterality Modality Cardiac Other 10/31/2023 7:57 AM EDT Narrative 10/31/2023 9:45 AM EDT [address] [place] [address] ? Echocardiogram Report Name: TOM ADIN Dorene ? Study Date: 10/31/2023 07:57 AMBP: 106/76 mmHg ? Patient Location: [address] : 1940 ? Height: 163 cm ? Account: [id number] Age: 83 yrs ? Weight: 76 kg Gender: Female ?BSA: 1.8 m2 Ordering Physician: ROSA DEWEY Referring Physician: OMAIRA GIRON Performed By: HAFSA Carmichael Reason For Study: STEMI Interpreting Fellow: Raymond Warren. Exam Location: [facility]. Interpretation Summary -The left ventricle [...] is no prior echocardiogram for comparison. Procedure Complete-22012. Satisfactory quality. There is sinus bradycardia. Left [...] Note Edgard Wang MD - 10/31/2023 [address] [place] [address] Echocardiogram Report Name: ADIN SANTOS Study Date: 407:57 AMBP: 106/76 mmHg Patient Location: [address] : 1940 Height: 163 cm Account: [id number] Age: 83 yrs Weight: 76 kg Gender: Female BSA: 1.8 m2 Ordering Physician: ROSA DEWEY Referring Physician: OMAIRA GIRON Performed By: HAFSA Carmichael Reason For Study: STEMI Interpreting Fellow: Raymond Warren. Exam Location: [facility]. Interpretation Summary -The left ventricle [...] is no prior echocardiogram for comparison. Procedure Complete-83681. Satisfactory quality. There is sinus bradycardia. Left [...] * (ABNORMAL) Troponin (10/31/2023 8:51 AM EDT) [facility] Troponin-T, High Sensitivity 571(H) <=14 ng/L [facility] [...] can be found in the [facility] Laboratory Test Catalog Troponin - [facility] Laboratory Test Catalog Reference: Fourth [place] Definition of Myocardial Infarction. Journal of the [place] [employer] 2018;72:2630-6532 Blood 10/31/2023 8:51 AM EDT 10/31/2023 9:12 AM EDT Narrative Resulting Agency Comment Spec In Lab Rosa Cornejo MD CHEMISTRY ORDERABLE S Performing Organization Address [facility] Co de Phone Number [facility] [place] [address] * CARDIAC CATHETERIZATION (10/31/2023 8:10 AM EDT) Anatomical Region Laterality Modality Other Narrative 11/07/2023 9:42 AM EDT ?[facility] ? Cardiac Catheterization/Intervention Report ? Patient Name: Adin Santos ? Procedure Date: 10/30/2023 ? A #: [id number] ? Primary Physician: Rosa Dewey I ? Case #: [id number] ? File Name: [id number] ? Catheterization Order Number: [id number] ? [facility] ? Final Report [place], [place] ? Patient Name: ? Adin M. Goguen ?ID#: ?[id number] ? : ?1940 ? Procedure Date: ? [...] as ASA Class III. The [facility] clinical frailty scale ?is 5: Mildly Frail. [...] procedure was Emergent. The indication for ?the brine room laborer visit is ACS less than or [...] A premounted 4.00 x 38 mm Andrea Stollings (RADHA) was deployed ? with a maximum [...] dose administered prior to arrival in the brine room laborer. ?Recommended anti-platelet/anti-thrombotic regimen: ?Continue aspirin 81 mg daily for 12 months then stop. ?Continue clopidogrel 75 mg daily for indefinitely. ?These recommendations are made at the time of the intervention. Patient ?and provider preferences or a changing clinical situation may require ?modification of this regimen. Consult [facility] Interventional Cardiology for [...] Dewey MD - 12/05/[address] [facility] Cardiac Catheterization/Intervention Report Patient Name: Adin Santos Procedure Date: 10/30/2023 A #: [id number] Primary Physician: Rosa Dewey I Case #: [id number] File Name: [id number] Catheterization Order Number: [id number] [facility] FinalReport [place], [place] Patient Name: Adin Santos ID#:[id number] :1940 Procedure Date: October 30, 2023 Case [...] as ASA Class III. The [facility] clinical frailtyscale is 5: Mildly Frail. Diagnostic Tests: Electrocardiography: EKG was assessed by ECG. EKG was Abnormal. EKG showed STDeviation >= 0.5 mm, other abnormality and dynamic EKG changes. Medications Prior to Procedure: Aspirin, Angiotensin II Receptor Rodrick, Beta Rodrick andStatin. Indications for Diagnostic Cath: The priority of the diagnostic procedure was Emergent. Theindication for the brine room laborer visit is ACS less than or [...] The priority for the procedure was Emergent.The [facility] indication for the procedure was STEMI-Immediate [...] A premounted 4.00 x 38 mm Andrea Stollings (RADHA) wasdeployed with a maximum inflation pressure [...] dose administered prior to arrival in the brine room laborer. Recommended anti-platelet/anti-thrombotic regimen: Continue aspirin 81 mg daily for 12 months then stop. Continue clopidogrel 75 mg daily for indefinitely. These recommendations are made at the time of the intervention.Patient and provider preferences or a changing clinical situation mayrequire modification of this regimen. Consult [facility] Interventional Cardiologyfor questions. Conclusions: [...] Health Troponin-T, High Sensitivity 457(H) <=14 ng/L [facility] [...] can be found in the [facility] Laboratory Test Catalog Troponin - [facility] Laboratory Test Catalog Reference: Fourth [place] Definition of Myocardial Infarction. Journal of the [place] [employer] 2018;72:1107-9408 Blood 10/31/2023 4:21 AM EDT 10/31/2023 4:30 AM EDT Narrative Resulting Agency Comment Spec In Lab Rosa Cornejo MD CHEMISTRY ORDERABLE S Performing Organization Address City/State/[facility] Co de Phone Number [facility] [place] [address] * (ABNORMAL) Differential, Automated (10/31/2023 3:05 AM EDT) Neutrophil % 71.7 % [facility] Neutrophil Absolute 8.21(H) 1.70 - 6.10 x10(3)/mc L [facility] Lymph % 16.9 % [facility] Lymphocytes Abs 1.9 0.9 - 3.2 x10(3)/mc L [facility] Monocyte % 9.4 % [facility] Monocyte Abs 1.1(H) 0.3 - 0.9 x10(3)/mc L [facility] Eos % 1.3 % [facility] Eosinophils Abs 0.2 0.0 - 0.4 x10(3)/mc L [facility] Basophil % 0.4 % [facility] Baso Absolute 0.0 0.0 [...] HEMATOLOGY ORDERABLE S [facility] [place] [address] * (ABNORMAL) Hemogram (10/31/2023 3:05 AM EDT) White Blood Cell 11.5(H) 4.0 - 9.5 x10(3)/ L [facility] Red Blood Cell 3.75(L) 4.00 - 5.21 x10(6)/mc L [facility] Hemoglobin 12.6 11.7 - [...] Platelet 206 145 - 357 x10(3)/mc L [facility] RDW Standard Deviation 53.4(H) 37.0 - 46.0 fL [facility] RDW coefficient of variation 14.6(H) 11.5 - 14.1 % [facility] Mean Platelet Volume 11.1 7.6 - 12.9 fL [facility] NRBC% auto 0.0 % [facility] NRBC Absolute 0.000 0.000 - 0.000 x10(3)/mc L [facility] Blood 10/31/2023 3:05 AM EDT 10/31/2023 3:13 AM EDT Narrative Resulting Agency Comment Spec In Lab Qamar Gallardo MD HEMATOLOGY ORDERABLE S Performing Organization Address [facility] de Phone Number [facility] [place] [address] * (ABNORMAL) APTT (10/31/2023 3:05 AM EDT) [...] MD HEMATOLOGY ORDERABL ES Performing Organization Address [facility] de Phone Number [facility] [place] [address] * (ABNORMAL) Prothrombin Time (10/31/2023 3:05 AM [...] Lab Rosa Cornejo MD HEMATOLOGY ORDERABL ES [facility] [place] [address] * (ABNORMAL) Differential, Automated (10/31/2023 1:37 AM EDT) Neutrophil % 71.1 % [facility] Neutrophil Absolute 7.53(H) 1.70 - 6.10 x10(3)/mc L [facility] Lymph % 18.0 % [facility] Lymphocytes Abs 1.9 0.9 - 3.2 x10(3)/ L [facility] Monocyte % 8.7 % [facility] Monocyte Abs 0.9 0.3 - 0.9 x10(3)/mc L [facility] Eos % 1.6 % [facility] Eosinophils Abs 0.2 0.0 - 0.4 x10(3)/mc L [facility] Basophil % 0.4 % [facility] Baso Absolute 0.0 0.0 [...] HEMATOLOGY ORDERABLE S [facility] [place] [address] * (ABNORMAL) Hemogram (10/31/2023 1:37 AM EDT) [...] Platelet 204 145 - 357 x10(3)/mc L [facility] RDW Standard Deviation 54.3(H) 37.0 - 46.0 fL [facility] RDW coefficient of variation 14.6(H) 11.5 - 14.1 % [facility] Mean Platelet Volume 11.1 7.6 - 12.9 fL [facility] NRBC% auto 0.0 % [facility] NRBC Absolute 0.000 0.000 - 0.000 x10(3)/mc L [facility] Blood 10/31/2023 1:37 AM EDT 10/31/2023 1:46 AM EDT Narrative Resulting Agency Comment Spec In Lab Qamar Gallardo MD HEMATOLOGY ORDERABLE S [facility] [place] [address] * Phosphorus (10/31/2023 1:37 AM EDT) Phosphorus 3.2 2.5 - 4.5 mg/dL [facility] Blood 10/31/2023 1:37 AM EDT 10/31/2023 1:46 AM EDT Narrative Resulting Agency Comment Spec In Lab Rosa Cornejo MD CHEMISTRY ORDERABLE S Performing Organization Address City/[facility]/ZIP Co de Phone Number [facility] [place] [address] * Magnesium (10/31/2023 1:37 AM EDT) Magnesium 0.83 0.69 - 1.07 mmol/L [facility] Blood 10/31/2023 1:37 AM EDT 10/31/2023 1:46 AM EDT Narrative Resulting Agency Comment Spec In Lab Rosa Cornejo MD CHEMISTRY ORDERABLE S Performing Organization Address City/[facility]/ZIP Co de Phone Number [facility] [place] [address] * Basic Metabolic Panel (non-fasting) (10/31/2023 1:37 AM EDT) Glucose 114 65 - 199 mg/dL [place] [...] CHEMISTRY ORDERABLE S [facility] [place] [address] * (ABNORMAL) Troponin (10/31/2023 1:37 AM EDT) [...] can be found in the [facility] Laboratory Test Catalog Troponin - [facility] Laboratory Test Catalog Reference: Fourth [place] Definition of Myocardial Infarction. Journal of the [place] [employer] 2018;72:1918-9518 Blood 10/31/2023 1:37 AM EDT 10/31/2023 1:46 AM EDT Narrative Resulting Agency Comment Spec In Lab Rosa Cornejo MD CHEMISTRY ORDERABLE S Performing Organization Address City/[facility]/ZIP [place] [address] * EKG 12 Lead (10/31/2023 1:20 AM EDT) Ventricular rate 52 BPM MUSE SYSTEM Atrial Rate 52 BPM MUSE SYSTEM P-R Interval 224 ms MUSE SYSTEM QRS Duration 108 ms MUSE SYSTEM Q-T Interval 544 ms MUSE SYSTEM QTC Calculated (Bezet) 505 ms MUSE SYSTEM Calculated P [place] 90 degrees MUSE SYSTEM Calculated R [place] -57 degrees MUSE SYSTEM Calculated T [place] -63 degrees MUSE SYSTEM INTERPRETATION Sinus bradycardia with 1st degree A-V block Pulmonary disease pattern Left anterior fascicular block Moderate voltage criteria for LVH, may be normal variant ( R in aVL , [place] product ) T wave abnormality, consider inferior [...] (Bezet) 497 ms MUSE SYSTEM Calculated P [place] 75 degrees MUSE SYSTEM Calculated R [place] -53 degrees MUSE SYSTEM Calculated T [place] -57 degrees MUSE SYSTEM INTERPRETATION Sinus bradycardia with 1st degree A-V block Left anterior fascicular block Moderate voltage criteria for LVH, may be normal variant ( R in aVL , [place] product ) T wave abnormality, consider inferior [...] View (10/30/2023 10:10 PM EDT) WORKSTATION ID [id number] DH RAD Anatomical Region Laterality Modality Chest [...] and low lung volumes. Findings similar to bagman/woman radiograph from CT 10/30/2023. Thank you for letting us participate in the care of this patient. ??If you are a health care provider and have any questions regarding this report, please contact the number below. ??For patients who have questions please contact the health critical care physician assistant that requested your imaging first. ? Electronically signed by: Wilson Mccartney MD, [facility] ([phone]), at 10/30/2023 10:32 PM Narrative 10/30/2023 10:32 [...] and low lung volumes. Findings similar to bagman/woman radiograph from CT 10/30/2023. Thank you for letting us participate in the care of this patient. If youare a health care provider and have any questions regarding this report,please contact the number below. For patients who have questions please contactthe health critical care physician assistant that requested your imaging first. Rosa Cornejo MD IMG DX ORDERABLES * Green Tube HOLD (10/30/2023 10:05 PM EDT) [facility] Green Hold Sample in lab. [facility] Blood Venous Draw / Unknown 10/30/2023 10:05 PM EDT 10/30/2023 10:13 PM EDT Qamar Gallardo MD CHEMISTRY ORDERABLES [facility] [place] [address] * (ABNORMAL) Differential, Automated (10/30/2023 10:05 PM EDT) Pathologist [facility] [place] Neutrophil % 76.6 % [facility] Neutrophil Absolute 6.94(H) 1.70 - 6.10 x10(3)/mc L [facility] Lymph % 15.4 % [facility] Lymphocytes Abs 1.4 0.9 - 3.2 x10(3)/mc L [facility] Monocyte % 6.1 % [facility] Monocyte Abs 0.6 0.3 - 0.9 x10(3)/mc L [facility] Eos % 1.1 % [facility] Eosinophils Abs 0.1 0.0 - 0.4 x10(3)/mc L [facility] Basophil % 0.6 % [facility] Baso Absolute 0.0 0.0 [...] x10(3)/ L [facility] Blood 10/30/2023 10:0 5 PM EDT 10/30/2023 10:12 PM EDT Narrative Resulting Agency Comment Spec In Lab Qamar Gallardo MD HEMATOLOGY ORDERABLE S Performing Organization Address City/State/[facility] Co de Phone Number [facility] [place] [address] * (ABNORMAL) Hemogram (10/30/2023 10:05 PM EDT) White Blood Cell 9.0 4.0 - 9.5 x10(3)/ L [facility] NRBC% auto 0.0 % [facility] NRBC Absolute 0.000 0.000 - 0.000 x10(3)/mc L [facility] Blood 10/30/2023 10:0 5 PM EDT 10/30/2023 10:12 PM EDT Narrative Resulting Agency Comment Spec In Lab Qamar Gallardo MD HEMATOLOGY ORDERABLE S Performing Organization Address City/[facility]/ZIP Co de Phone Number [facility] [place] [address] * Hemoglobin A1c (10/30/2023 10:05 PM EDT) [...] [id number] Estimated Average Glucose See note mg/dL [facility] Comment: Estimated Average Glucose not appropriate for patients over 70 years of age. Blood 10/30/2023 10:0 5 PM EDT 10/30/2023 10:12 PM EDT Narrative Resulting Agency Comment Spec In Lab Rosa Cornejo MD CHEMISTRY ORDERABLE S [facility] [place] [address] * Lipid Panel (Reflex Direct LDL) (10/30/2023 10:05 PM EDT) [facility] Cholesterol, Total 218 mg/dL [facility] Comment: Desirable: ? <200 mg/dL Borderline High: 200-239 mg/dL Higher: ?>xn=350 mg/dL Triglyceride 46 mg/dL [facility] Comment: Normal: ?<150 mg/dL Borderline High: 150-199 mg/dL High: ?200-499 mg/dL Very High: ? >ii=851 mg/dL HDL Cholesterol 64 mg/dL [facility] Comment: Females: High Risk: <50 mg/dL Males: High Risk: <40 mg/dL LDL Cholesterol 145 mg/dL [facility] Comment: Desirable: ? <100 mg/dL Above Desirable: 100-129 mg/dL Borderline High: 130-159 mg/dL High: ?160-189 mg/dL Very High: ? >sm=566 mg/dL Lipid Interpretation See Note [facility] [...] individuals with atherosclerotic cardiovascular disease (ASCVD)or LDL >oh=325 mg/dL, use a high-intensity statin (40-80 mg [...] MD CHEMISTRY ORDERABLE S Performing Organization Address [facility] Co de Phone Number [facility] [place] [address] * TSH [place] (10/30/2023 10:05 PM EDT) Thyroid Stimulating Hormone 3.35 0.27 - 4.20 mcIU/mL [facility] Comment: Reference Interval (mcIU/mL): Females: ??First Trimester: 0.23-3.88 ??Second Trimester: 0.22-3.90 ??Third Trimester: 0.44-4.66 Blood 10/30/2023 10:0 5 PM EDT 10/30/2023 10:12 PM EDT Narrative Resulting Agency Comment Spec In Lab Rosa Cornejo MD CHEMISTRY ORDERABLE S Performing Organization Address [facility]/ZIP Co de Phone Number [facility] [place] [address] * pro-Brain Natriuretic Peptide (10/30/2023 10:05 PM EDT) NT-proBNP 375 <=449 pg/mL [facility] Blood 10/30/2023 10:0 5 PM EDT 10/30/2023 10:12 PM EDT Narrative Resulting Agency Comment Spec In Lab Rosa Cornejo MD CHEMISTRY ORDERABLE S [facility] [place] [address] * (ABNORMAL) Comprehensive metabolic panel (non-fasting) (10/30/2023 10:05 PM EDT) Pathologist [facility] [place] Glucose 121 65 - 199 mg/dL [facility] [...] MD CHEMISTRY ORDERABLE S Performing Organization Address City/[facility]/ZIP Co de Phone Number [facility] [place] [address] * Phosphorus (10/30/2023 10:05 PM EDT) Phosphorus 3.3 2.5 - 4.5 mg/dL [facility] Blood 10/30/2023 10:0 5 PM EDT 10/30/2023 10:12 PM EDT Narrative Resulting Agency Comment Spec In Lab Rosa Cornejo MD CHEMISTRY ORDERABLE S [facility] [place] [address] * Magnesium (10/30/2023 10:05 PM EDT) Magnesium 0.86 0.69 - 1.07 mmol/L [facility] Blood 10/30/2023 10:0 5 PM EDT 10/30/2023 10:12 PM EDT Narrative Resulting Agency Comment Spec In Lab Rosa Cornejo MD CHEMISTRY ORDERABLE S Performing Organization Address City/[facility]/ZIP Co de Phone Number [facility] [address] * (ABNORMAL) Troponin (10/30/2023 10:05 PM EDT) Troponin-T, High Sensitivity 214(H) <=14 ng/L [facility] [...] can be found in the [facility] Laboratory Test Catalog Troponin - [facility] Laboratory Test Catalog Reference: Fourth [place] Definition of Myocardial Infarction. Journal of the [place] [employer] 2018;72:2457-9468 Blood 10/30/2023 10:0 5 PM EDT 10/30/2023 10:12 PM EDT Narrative Resulting Agency Comment Spec In Lab Rosa Cornejo MD CHEMISTRY ORDERABLE S Performing Organization Address City/[facility]/ZIP Co de Phone Number [facility] [address] * EKG 12 Lead (10/30/2023 8:21 PM EDT) Ventricular rate 49 BPM MUSE SYSTEM Atrial Rate 49 BPM MUSE SYSTEM P-R Interval 230 ms MUSE SYSTEM QRS Duration 96 ms MUSE SYSTEM Q-T Interval 526 ms MUSE SYSTEM QTC Calculated (Bezet) 475 ms MUSE SYSTEM Calculated P [place] 98 degrees MUSE SYSTEM Calculated R [place] -48 degrees MUSE SYSTEM Calculated T [place] -51 degrees MUSE SYSTEM INTERPRETATION Sinus bradycardia with 1st degree A-V block Incomplete right bundle branch block Left anterior fascicular block Moderate voltage criteria for LVH, may be normal variant ( R in aVL , [place] product ) T wave abnormality, consider inferior [...] Thurman, TANESHA)0925 (Stopped - Provider: Lucretia Thurman, TNAESHA) metoprolol succinate XL (Toprol-XL) tablet 12.5 mg [...] - Reason: Transfer to a Procedural area)1548 ([facility] Unhold - Provider: Admin Adt) fentaNYL (pf) [...] - Reason: Transfer to a Procedural area)1548 ([facility] Unhold - Provider: Admin Adt) midazolam (pf) [...] documented as of this encounter Care Teams Computer Programming Manager Relationship Specialty Start Date End Date Rosie Mathews MD [address] [place] [id number] PCP - General Family Medicine 11/25/17 11/23/23 documented as of this encounter
--- OUTSIDE RECORDS SUMMARY | 2024-02-17 10:32 | XMS_ITS | Encounter Summary ---
Author Organization [facility] Address [address] [place] [address] Care Team Providers Care Supply Chain Generalist Name Role Phone Kirsten Bateman MD Primary Care Provider [phone] Encounter Details Date Type Department Care Team (Late st Contact Info) Description 01/27/2021 Lab Requisition [facility] Pathology & Laboratory Medicine - [facility] [address] [place] [address] Outr Resulting Lab, Provider Social History Tobacco [...] Outr Resulting Lab MICROBIOLOGY - GENERAL ORDERABLES [facility] [address] [place] [address] * COVID-19 TESTING (01/26/2021 16:45 EDT) COVID-19 rt-PCR Result Negative Negative 01/28/2021 13:31 EDT [facility] Comment: This test has [...] developed and its performance characteristics determined by [facility]. It has not been cleared or approved [...] testing. This test is based on the [facility] COVID-19 Emergency Use Authorization (EUA) assay, with minor modification as defined by the FDA Performed on the CUPRo 7 Pro RT-PCR System. Performing Lab [facility] Lab 01/28/2021 13:31 EDT [facility] Swab 01/26/2021 16:4 5 EDT 01/27/2021 15:46 EDT Provider Outr Resulting Lab MICROBIOLOGY - GENERAL ORDERABLES [facility] [address] [place] [address] documented in this encounter Visit Diagnoses Not on filedocumented in this encounter Care Teams Supply Chain Generalist Relationship Specialty Start Date End Date Kirsten Bateman MD [address] [place] [address] PCP - General 01/13/10 documented as of this encounter
--- OUTSIDE RECORDS SUMMARY | 2024-02-17 10:32 | XMS_ITS | Encounter Summary ---
Author Organization Formerly [facility] [place] [address] Care Team Providers Care Review Engineer Name Role Phone Rosie Mathews MD Primary Care Provider [phone] Reason for Visit * Auth/Cert (Routine) Specialty Diagnoses / Procedures Referred By Contac t Referred To Contact Diagnoses Unstable angina Chest pain NSTEMI Procedures CARDIAC CATHETERIZATION Rosa Dewey MD [facility] [place] [address] [facility] Referral ID Status Reason Start Date Expiration Date Visits Re quested Visits Authorized [id number] 1 1 Encounter Details Date Type Department Care Team (Late st Contact Info) Description 10/30/2023 4:25 PM EDT - 10/30/2023 5:27 PM EDT [place] [address] Rosa Dewey MD [facility] [address] [place], [place] [id number] CARDIAC CATHETERIZATION Social History Tobacco Use Types Packs/Day Years Used Date Smoking Tobacco: Former Smokeless Tobacco: Never Alcohol Use Standard Drinks/Week Comments Not Currently 0 (1 standard drink = 0.6 oz pur e alcohol) [facility]LY [facility] Inpatient Questions Answer Date Recorded [...] for hypertension and hyperlipidemia who presented to [facility] as a transfer from [facility] as a possible STEMI alert with acute onset chest pain. The patient reports that her symptoms initially began on Tuesday when she was walking to [facility] and experienced bilateral arm heaviness while walking with no other symptoms. Then, this afternoon shereports developing bilateral achy shoulder pain and nonradiating substernal left-sided chest pressure that was 7/10 in severity after coming home from sabianism. The patient denies any associated fevers, chills, diaphoresis, lightheadedness/dizziness, syncope/presyncope, dyspnea (either at rest or on exertion), palpitations, orthopnea, or PND. The patient subsequently presented to [facility] as a walk-in for further evaluation. [...] on repeat, her JAMIE resolved. Cardiology at [facility] was consulted for transfer; the patient was loaded with aspirin 324 mg and ticagrelor 180 mg, started on a heparin drip, and given nitroglycerin with improvement in chest pain. Upon arrival to [facility], the patient was taken directly to the Publicist. Two lesions were discovered: one in the prox RCA (felt to almost be a HUMAN RESOURCES MANAGER but they were able to wire, [...] dose administered prior to arrival in the microbiological lab technician. Recommended anti-platelet/anti-thrombotic regimen: Continue aspirin [...] and low lung volumes. Findings similar to post tensioning ironworker radiograph from CT 10/30/2023. Pending Studies and [...] AM Izaiah Meyer MD Cardiology at [facility] Arrive at: [facility] [address] [phone] Future Orders Complete By Expires Referral to Cardiac Rehab [[id number] Custom] As directed Process Instructions: If no progress note charted, please enter Clinical details in comments. Scheduling Instructions: Questions: My question or request is: STEMI. Cardiac rehab at [facility]. Referral to Home Health [[id number] Custom] As directed Process Instructions: If no progress note charted, please enter Clinical details in comments. Scheduling Instructions: Comments: Please evaluate Adin Santos for admission to Home Health. [address] [place] [address] [place] [phone] (home) Date of : 1940 Inpatient DOCUMENTATION FOR VNA SERVICES (INCLUDING THOSE PATIENTS WITH MEDICARE COVERAGE REQUIRING HOME VNA SERVICES AND/OR HOSPICE SERVICES) PATIENT'S LOCATION: Adin Santos [address] [facility] [id number] (home) Cell: Telephone Information: Youth Development Specialist's Name: self In discussion with the attending physician, it is certified that this patient is under their care and that they, or a Nurse Practitioner, Clinical Nurse specialist or Physician Wagon Person who is working directly with them, had [...] health issues HOME HEALTH CARE AGENCY: [facility] [address] [place] [address] START OF CARE: within 24-48 hours of [...] Rosie Mathews MD [address] / [facility] [address] . All A agencies which cover the [...] MD / Dr. Masood Pierson [address] [place] [address] 11/09/23 1:55 PM arrival for 2:10 PM appointment Stationary Fireman: Izaiah Meyer MD [address] [place] [address] , 11/24/2023 10:40 AM Your Inpatient Medical Team at [facility] Name(s) of your inpatient provider(s): Attending physician: Rosa Hugo MD Resident physicians: Emile Robles MD; Elmer Tamez MD If you have non-emergent questions, prior to your follow-up visit call: Tuesday-Tuesday between the hours of 8AM-5PM please call the Cardiology Clinic [phone] to speak with a nurse. All other hours please call the Hospital Key Holder [phone] and ask to speak to the petrography teacher on-call. Your Primary Care Provider Rosie Mathews MD [phone] For questions regarding this document or issues relating to this hospitalization on the Medical Service, please contact your inpatient physician through the [facility] Key Holder . Issues afterhours and on weekends will be handled by the Stationary Fireman staff on-call. Associated attestation - Rosa Hugo [...] MD / Dr. Masood Pierson [address] [place] [address] 11/09/23 1:55 PM arrival for 2:10 PM appointment Stationary Fireman: Izaiah Meyer MD [address] [place] [address] , 11/24/2023 10:40 AM Your Inpatient Medical Team at [facility] Name(s) of your inpatient provider(s): Attending physician: Rosa Hugo MD Resident physicians: Emile Robles MD; Elmer Tamez MD If you have non-emergent questions, prior to your follow-up visit call: Tuesday-Tuesday between the hours of 8AM-5PM please call the Cardiology Clinic [phone] to speak with a nurse. All other hours please call the Hospital Key Holder [phone] and ask to speak to the petrography teacher on-call. Your Primary Care Provider Rosie Mathews MD [phone] documented in this encounter Medications at Time [...] for hypertension and hyperlipidemia who presented to [facility] as a transfer from [facility] as a possible STEMI alert with [...] for hypertension and hyperlipidemia who presented to [facility] as a transfer from [facility] as a possible STEMI alert with [...] Resident on Cardiology Service Cardiology S1 (Pager [phone]) Note written in conjunction with Claudio Perla [facility] Medical Student, MS3 Associated attestation - [...] Nirmala Webb - 11/01/2023 11:25 AM EDT Hand Candy Dipper Encounter Note Patient Name: Adin Santos : [id number] MR#: [id number] Admit Date: 10/30/2023 5:11 PM Hospital Day 2 days Narrative: Self initiated visit to patient for Spiritual support in a regular unit rounds. Assessment: Patient is in the bathroom at the time of this visit. Not a good time for Crewman Armoured Personnel Carrier M113 visit. Intervention and Outcome: An attempted visit [...] for hypertension and hyperlipidemia who presented to [facility] as a transfer from [facility] as a possible STEMI alert with [...] and low lung volumes. Findings similar to post tensioning ironworker radiograph from CT 10/30/2023. Scheduled Medications: [MAR [...] for hypertension and hyperlipidemia who presented to [facility] as a transfer from [facility] as a possible STEMI alert with [...] mg daily - Plan to start beta rordick tomorrow first dost given post cath, if [...] Resident on Cardiology Service Cardiology S1 (Pager [phone]) Note written in conjunction with Claudio Perla [facility] Medical Student, MS3 Associated attestation - [...] for hypertension and hyperlipidemia who presented to [facility] as a transfer from [facility] as a possible STEMI alert with acute onset chest pain. Active Problems: Active Hospital Problems Diagnosis Unstable angina Resolved Hospital Problems No resolved problems to display. 24 hr events: - Cath'd yesterday with lesion in the proximal RCA (initially thought it was HUMAN RESOURCES MANAGER but they were ableto wire, balloon [...] and low lung volumes. Findings similar to post tensioning ironworker radiograph from CT 10/30/2023. TTE (10/30): Interpretation [...] for hypertension and hyperlipidemia who presented to [facility] as a transfer from [facility] as a possible STEMI alert with [...] Resident on Cardiology Service Cardiology S1 (Pager [phone]) Note written in conjunction with Claudio Perla [facility] Medical Student, MS3 Associated attestation - [...] PCP: Rosie Mathews MD PCP phone number: [phone] Date of Admission: 10/30/2023 ( Hospital Day 0 days ) Attending:Rosa Cornejo MD ID: Adin Santos is a 83 y.o. female PMH significant for hypertension and hyperlipidemia who presented to [facility] as a transfer from [facility] as a possible STEMI alert with acute onset chest pain. The patient reports that her symptoms initially began on Tuesday when she was walking to [facility] and experienced bilateral arm heaviness while walking with no other symptoms. Then, this afternoon shereports developing bilateral achy shoulder pain and nonradiating substernal left-sided chest pressure that was 7/10 in severity after coming home from sabianism. The patient denies any associated fevers, chills, diaphoresis, lightheadedness/dizziness, syncope/presyncope, dyspnea (either at rest or on exertion), palpitations, orthopnea, or PND. The patient subsequently presented to [facility] as a walk-in for further evaluation. [...] on repeat, her JAMIE resolved. Cardiology at [facility] was consulted for transfer; the patient was loaded with aspirin 324 mg and ticagrelor 180 mg, started on a heparin drip, and given nitroglycerin with improvement in chest pain. Upon arrival to [facility], the patient was taken directly to the Publicist. Two lesions were discovered: one in the prox RCA (felt to almost be a HUMAN RESOURCES MANAGER but they were able to wire, [...] and low lung volumes. Findings similar to post tensioning ironworker radiograph from CT 10/30/2023. Assessment & Plan: Adin Santos is a 83 y.o. female PMH significant for hypertension and hyperlipidemia who presented to [facility] as a transfer from [facility] as a possible STEMI alert with [...] with HTN HLD transferred with chest from [facility]. BP 217/68, HR 71 EKG [...] information for follow-up Home [facility], [place] [address] TANESHA BOYCE confirmed with Brittany CARVAJAL that [...] the room. Electrolytes replaced, see MAR. laborer cutting tool sites remained C/D/I with baseline ecchymosis unchanged. Pt complained of back pain, lidocaine patch given. Right IV infiltrated during infusion, patient is marked with sharpie, IV removed. See flowsheet for I+O's and safety rounding. Patient is able to make needs known and call capps within reach. PLAN MOVING FORWARD: Monitor Tele, control BP, monitor microbiological lab technician sites, D/C Planning INDIVIDUALIZED FALL [...] in an outpatient cardiac rehabilitation program at [facility] was discussed. Patient agrees to [...] and above on RA. PT went to microbiological lab technician today. Left fem site oozed [...] MOVING FORWARD: Monitor Tele, control BP, monitor microbiological lab technician sites, D/C Planning INDIVIDUALIZED FALL [...] Admitted From: Transfer from another hospital Location: [facility] Reason for Hospitalization: chest pain Covid Vaccination Status: 1st, 2nd & booster Past medical History: No past medical history on file. Hospitalizations Within the Past 30 Days: no previous admission in last 30 days Current Decision-Making Capacity: Self If AD's have not been completed the following surrogate would be surrogate decision maker per [place] decision making law. (Only good for 180 days) Any patient receiving care in [place] must abide by [place] law. The hierarchy for surrogate decision making [...] (i) The agent with financial power of ophthalmic medical technician or a conservator appointed in accordance with [...] has the electric, gas, oil, or water [employer] threatened to shut off services in your [...] toilet seat Home Address confirmed as: [address] [facility] [address] Social & Family Supports: All names listed below confirmed with patient as current and correct Extended Emergency Contact Information Primary Emergency Contact: Iris Downing Address: [address] [place], [place] [address] [place] [address] Mobile Relation: Child Secondary Emergency Contact: Karen More Address: [address] [facility] Mobile Relation: Child Current Care Provided by: self Provides Primary Care For: no one Caregiver if needed: child(emmanuel), adult Quality of Family relationships: involved, supportive Community Resources being provided currently: other (see comments) (receives [facility] services at home (1xweekly)) Behavioral [...] Insurance: N/A Prescription Coverage: Yes Preferred Pharmacy: [facility] [place], [place] - [address] [place] [address] [place] [address] Status: Patient is a : No Primary Care Provider listed: Masood Pierson MD [phone] Patient/Caregiver Goals of Treatment: home when MR Potential Needs for Transition of Care: home health care Agency Referrals: Not Applicable I have met with the patient to: discuss discharge planning needs. provide the [facility], Office of Care Management letter from the Hydraulic Elevator Constructor pertaining to rehab referrals. provide a letter describing our affiliations within the [facility] and educate about their right to choose where referrals are sent. provide a list of Home Health Agencies / Durable Medical Equipment vendors which serve their preferred geographic area. provided patient with CMS Star Quality Rating handout. They have requested referrals to: [facility] [address] [place] [address] Note routed to a Gel Coater who will communicate referrals to facilities and [...] PO hydralazine added for BP control. laborer cutting tool sites remain C/D/I, ecchymosis unchanged th roughout shift. See flowsheet for I+O's and safety rounding. Patient is able to make needs known and call capps within reach. PLAN MOVING FORWARD: Monitor Tele, control CP and BP, NPO at MD for cath, monitor microbiological lab technician sites, D/C Planning INDIVIDUALIZED FALL [...] AM EDT Office Visit Cardiology at [address] [address] Izaiah Meyer MD [facility] [place] [address] Scheduled Referrals Name Type Priority Associated Diagnoses [...] Absolute 5.28 1.70 - 6.10 x10(3)/mc L [facility] Lymph % 15.2 % [facility] Lymphocytes Abs 1.3 0.9 - 3.2 x10(3)/mc L [facility] Monocyte % 16.9 % [facility] Monocyte Abs 1.4(H) 0.3 - 0.9 x10(3)/mc L [facility] Eos % 3.7 % [facility] Eosinophils Abs 0.3 0.0 - 0.4 x10(3)/mc L [facility] Basophil % 0.5 % [facility] Baso Absolute 0.0 0.0 - 0.1 x10(3)/mc L [facility] Immature Gran % 0.40 % [facility] Comment: Immature granulocytes(IG's)percentage and absolute count will include metamyelocytes, myelocytes, and promyelocytes. Blood smears from CBCs yielding IG's will be scanned manually for concordance. If this scan disagrees with the automated IG or if promyelocytes are noted, a manual differential will be performed. Immature Gran Absolute 0.03 0.00 - 0.04 x10(3)/mc L [facility] Blood 11/03/2023 3:46 AM EDT 11/03/2023 4:11 AM EDT Narrative Resulting Agency Comment Spec In Lab Qamar Gallardo MD HEMATOLOGY ORDERABLE S [facility] [place] [address] * (ABNORMAL) Hemogram (11/03/2023 3:46 AM EDT) White Blood Cell 8.3 4.0 - 9.5 x10(3)/[facility] Red Blood Cell 3.77(L) 4.00 - 5.21 x10(6)/[facility] Hemoglobin 13.1 11.7 - 15.5 g/dL [facility] Hematocrit 38.0 35.7 - 45.8 % [facility] Mean Cell Volume 100.8(H) 82.6 - 94.4 fL [facility] Mean Cell Hemoglobin 34.7(H) 27.1 - 32.0 pg [facility] Mean Cell Hemoglobin Concentration 34.5 31.7 - 35.0 g/dL [facility] Platelet 181 145 - 357 x10(3)/ L [facility] RDW Standard Deviation 54.7(H) 37.0 - 46.0 [facility] RDW coefficient of variation 14.6(H) 11.5 - 14.1 % [facility] Mean Platelet Volume 11.2 7.6 - 12.9 [facility] NRBC% auto 0.0 % [facility] NRBC Absolute 0.000 0.000 - 0.000 x10(3)/ L [facility] Blood 11/03/2023 3:46 AM EDT 11/03/2023 4:11 AM EDT Narrative Resulting Agency Comment Spec In Lab Qamar Gallardo MD HEMATOLOGY ORDERABLE S Performing Organization Address City/[facility]/ZIP Co de Phone Number [facility] [place] [address] * Phosphorus (11/03/2023 3:46 AM EDT) Phosphorus 3.2 2.5 - 4.5 mg/dL [facility] Comment:result rechecked-KS Blood 11/03/2023 3:46 AM EDT 11/03/2023 4:11 AM EDT Narrative Resulting Agency Comment Spec In Lab Rosa Cornejo MD CHEMISTRY ORDERABLE S Performing Organization Address [facility]/ZIP Co de Phone Number [facility] [place] [address] * Magnesium (11/03/2023 3:46 AM EDT) Magnesium 0.90 0.69 - 1.07 mmol/L [facility] Blood 11/03/2023 3:46 AM EDT 11/03/2023 4:11 AM EDT Narrative Resulting Agency Comment Spec In Lab Rosa Cornejo MD CHEMISTRY ORDERABLE S Performing Organization Address City/[facility]/ZIP Co de Phone Number [facility] [place] [address] * (ABNORMAL) Basic Metabolic Panel (non-fasting) (11/03/2023 3:46 AM EDT) Glucose 105 65 - 199 mg/dL [facility] Comment:Diabetes: >=200 mg/d L plus symptoms Blood Urea Nitrogen 13 8 - 18 mg/dL [facility] Creatinine 0.83 0.70 - 1.20 mg/dL [facility] Sodium 139 135 - 145 mmol/L [facility] Potassium 4.0 3.5 - 5.0 mmol/L [facility] Comment: Please note: ??Patients with WBC >100,000 may have falsely elevated Potassium levels. ??For accurate Potassium quantification in these patients send serum separator tube (gold top) for subsequent determinations. ??Contact the Clinical Chemistry Laboratory if there are any questions. Chloride 108(H) 98 - 107 mmol/L [facility] Carbon Dioxide 19(L) 22 - 31 mmol/L [facility] Anion Gap 12 5 - 15 mmol/L [facility] Calcium 8.2(L) 8.5 - 10.5 mg/dL [facility] Est Glomerular Filtration Rate 69 >=60 mL/min/1. 73 m?? [facility] Comment: This patient's estimated [...] Lab Rosa Cornejo MD CHEMISTRY ORDERABLE S [facility] [place] [address] * EKG 12 Lead (11/02/2023 12:44 PM EDT) Ventricular rate 83 BPM MUSE SYSTEM Atrial Rate 83 BPM MUSE SYSTEM P-R Interval 216 ms MUSE SYSTEM QRS Duration 90 ms MUSE SYSTEM Q-T Interval 384 ms MUSE SYSTEM QTC Calculated (Bezet) 451 ms MUSE SYSTEM Calculated P [place] 92 degrees MUSE SYSTEM Calculated R [place] -51 degrees MUSE SYSTEM Calculated T [place] -33 degrees MUSE SYSTEM INTERPRETATION Sinus rhythm with 1st degree A-V block with Premature atrial complexes Left axis deviation Moderate voltage criteria for LVH, may be normal variant ( R in aVL , Upham product ) Anterolatera l infarct (cited on or before 01-NOV-2023) Abnormal ECG When compared with ECG of 01-NOV-2023 22:10, Premature atrial complexes are now Present OK interval has increased Vent. rate has decreased [...] specimen volume Bacteria, Urine Many(A) None /HPF [facility] Squamous Epithelial Cells Raw Data, Urine 10(H) <=4 /HPF [facility] Hyaline Casts, Urine 2 0 - 2 /LPF [facility] Comment: Interpret results with caution, microscopic results are from suboptimal specimen volume Clean Catch Urine 11/02/2023 11:40 AM EDT 11/02/2023 12:05 PM EDT Narrative Resulting Agency Comment Spec In Lab Elmer Tamez MD URINE ORDERABLES [facility] [place] [address] * (ABNORMAL) Urinalysis with reflex Culture (11/02/2023 11:40 AM EDT) Glucose, Urine Dipstick Negative Negative mg/dL [facility] Protein, Urine Dipstick 30(A) Negative mg/dL [facility] Bilirubin, Urine Dipstick Negative Negative mg/dL [facility] Comment: Clinical correlation required for positive Urine Bilirubin results as false positive may occur with some drugs and drug related products. If a false positive is suspected a serum total bilirubin should be considered if clinically indicated. Urobilinogen, Urine Dipstick Normal Normal mg/dL [facility] pH, Urn (dipstick) 5.5 5.0 - 8.0 [facility] Blood, Urine Dipstick Negative Negative mg/dL [facility] Ketone, Urine Dipstick Trace(A) Negative mg/dL [facility] Nitrite, Urine Dipstick Positive(A) Negative [facility] Leukocytes, Urine Dipstick Small(A) Negative [facility] Appearance, Urine Dipstick Cloudy(A) Clear [facility] Specific [place] Urine Automated >=1.030(A) 1.005 - 1.030 [facility] Color, Urine Dipstick Dark Yellow Yellow [facility] Reflex to Culture Yes [facility] Clean Catch Urine 11/02/2023 11:40 AM EDT 11/02/2023 12:04 PM EDT Narrative Resulting Agency Comment Spec In Lab Rosa Hugo MD URINE ORDERABLES [facility] [place] [address] * Respiratory Panel PCR (11/02/2023 10:15 AM EDT) Respiratory Panel Source SYNTHETIC FILAMENT SPINNER Swab [facility] Respiratory Panel PCR Negative Negative [facility] Comment: Respiratory Panels are performed on the Class[employer], using multiplexed PCR nucleic acid detection. ??Negative results do not preclude respiratory infection and should not be used as the sole basis for diagnosis, treatment or other management decisions. Adenovirus Not Detected Not Detected [facility] Coronavirus HKU1 Not Detected Not Detected [facility] Coronavirus NL63 Not Detected Not Detected [facility] Coronavirus 229E Not Detected Not Detected [facility] Coronavirus OC43 Not Detected Not Detected [facility] SARS-CoV-2 Not Detected Not Detected [facility] Comment: Testing for SARS-CoV-2 (Severe acute respiratory syndrome coronavirus 2) to aid in the diagnosis of COVID-19 is performed using the BioFire Respiratory Panel 2.1 (OrbFlex) as authorized by the FDA issued Emergency Use Authorization (EUA). This panel also tests for multiple other viral and bacterial pathogens. This assay is intended for In-vitro Diagnostic (IVD) use with nasopharyngeal swabs in viral transport media. The assay is performed based on the instructions for use and additional guidance provided by the FDA. Testing is performed in laboratories within the [facility], each of which is certified [...] fact sheets at the following FDA website: https://www.fda.gov/medical-devices/vkhupasfmlg-wvbxxdm-5370-rprsw-26-evnmhibjq- use-a mgbhvidgbrxtm-ikzqyeo-mhexvej/akwuk-plosjqnytbm-jurw Human Metapneumovirus Not Detected Not Detected [facility] Human Rhinovirus/Enterov irus Not Detected Not Detected [facility] Influenza A Not Detected Not Detected [facility] Influenza B Not Detected Not Detected [facility] Parainfluenza 1 Not Detected Not Detected [facility] Parainfluenza 2 Not Detected Not Detected [facility] Parainfluenza 3 Not Detected Not Detected [facility] Parainfluenza 4 Not Detected Not Detected [facility] Respiratory Syncytial Virus Not Detected Not Detected [facility] Chlamydophila pneumoniae Not Detected Not Detected [facility] Mycoplasma pneumoniae Not Detected Not Detected [facility] Nasopharyngeal Swab 11/02/19 10:15 AM EDT 11/02/2023 10:49 AM EDT Narrative Resulting Agency Comment Spec In Lab Rosa Hugo MD MICROBIOLOGY - GEN ERAL ORDERABLES [facility] [place] [address] * XR Chest One View (11/02/2023 2:51 AM EDT) WORKSTATION ID [id number] DH RAD Anatomical Region Laterality Modality Chest [...] who have questions please contact the health day care assistant that requested your imaging first. ? Electronically signed by: Omaira Tran MD, [facility] ([phone]), at 11/02/2023 4:56 AM Narrative 11/02/2023 4:56 [...] patients who have questions please contactthe health day care assistant that requested your imaging first. Electronically signed by: Omaira Tran MD, [facility]([phone]), at 11/02/2023 4:56 AM Rosa Hugo MD IMG DX ORDERABLES * (ABNORMAL) Differential, Automated (11/02/2023 12:35 AM EDT) Neutrophil % 76.5 % [facility] Neutrophil Absolute 7.69(H) 1.70 - 6.10 x10(3)/mc L [facility] Lymph % 8.3 % [facility] Lymphocytes Abs 0.8(L) 0.9 - 3.2 x10(3)/mc L [facility] Monocyte % 12.9 % [facility] Monocyte Abs 1.3(H) 0.3 - 0.9 x10(3)/mc L [facility] Eos % 1.4 % [facility] Eosinophils Abs 0.1 0.0 - 0.4 x10(3)/mc L [facility] Basophil % 0.4 % [facility] Baso Absolute 0.0 0.0 - 0.1 x10(3)/mc L [facility] Immature Gran % 0.50 % [facility] Comment: Immature granulocytes(IG's)percentage and absolute count will include metamyelocytes, myelocytes, and promyelocytes. Blood smears from CBCs yielding IG's will be scanned manually for concordance. If this scan disagrees with the automated IG or if promyelocytes are noted, a manual differential will be performed. Immature Gran Absolute 0.05(H) 0.00 - 0.04 x10(3)/ L [facility] Blood 11/02/2023 12:3 5 AM EDT 11/02/2023 12:43 AM EDT Narrative Resulting Agency Comment Spec In Lab Qamar Gallardo MD HEMATOLOGY ORDERABLE S [facility] [place] [address] * (ABNORMAL) Hemogram (11/02/2023 12:35 AM EDT) White Blood Cell 10.0(H) 4.0 - 9.5 x10(3)/mc L [facility] Red Blood Cell 4.06 4.00 - 5.21 x10(6)/mc L [facility] Hemoglobin 13.8 11.7 - 15.5 g/dL [facility] Hematocrit 39.8 35.7 - 45.8 % [facility] Mean Cell Volume 98.0(H) 82.6 - 94.4 fL [facility] Mean Cell Hemoglobin 34.0(H) 27.1 - 32.0 pg [facility] Mean Cell Hemoglobin Concentration 34.7 31.7 - 35.0 g/dL [facility] Platelet 198 145 - 357 x10(3)/mc L [facility] RDW Standard Deviation 52.1(H) 37.0 - 46.0 fL [facility] RDW coefficient of variation 14.3(H) 11.5 - 14.1 % [facility] Mean Platelet Volume 11.4 7.6 - 12.9 fL [facility] NRBC% auto 0.0 % [facility] NRBC Absolute 0.000 0.000 - 0.000 x10(3)/mc L [facility] Blood 11/02/2023 12:3 5 AM EDT 11/02/2023 12:43 AM EDT Narrative Resulting Agency Comment Spec In Lab Qamar Gallardo MD HEMATOLOGY ORDERABLE S [facility] [place] [address] * (ABNORMAL) Phosphorus (11/02/2023 12:35 AM EDT) Phosphorus 1.6(L) 2.5 - 4.5 mg/dL [facility] Blood 11/02/2023 12:3 5 AM EDT 11/02/2023 12:43 AM EDT Narrative Resulting Agency Comment Spec In Lab Rosa Cornejo MD CHEMISTRY ORDERABLE S Performing Organization Address [facility]/ZIP Co de Phone Number [facility] [place] [address] * Magnesium (11/02/2023 12:35 AM EDT) Magnesium 0.87 0.69 - 1.07 mmol/L [facility] Blood 11/02/2023 12:3 5 AM EDT 11/02/2023 12:43 AM EDT Narrative Resulting Agency Comment Spec In Lab Rosa Cornejo MD CHEMISTRY ORDERABLE S Performing Organization Address City/[facility]/ZIP Co de Phone Number [facility] [place] [address] * Basic Metabolic Panel (non-fasting) (11/02/2023 12:35 AM EDT) Glucose 125 65 - 199 mg/dL [facility] Comment:Diabetes: >=200 mg/d L plus symptoms Blood Urea Nitrogen 9 8 - 18 mg/dL [facility] Creatinine 0.83 0.70 - 1.20 mg/dL [facility] Sodium 136 135 - 145 mmol/L [facility] Potassium 3.6 3.5 - 5.0 mmol/L [facility] Comment: Please note: ??Patients with WBC >100,000 may have falsely elevated Potassium levels. ??For accurate Potassium quantification in these patients send serum separator tube (gold top) for subsequent determinations. ??Contact the Clinical Chemistry Laboratory if there are any questions. Chloride 102 98 - 107 mmol/L [facility] Carbon Dioxide 25 22 - 31 mmol/L [facility] Anion Gap 9 5 - 15 mmol/L [facility] Calcium 9.0 8.5 - 10.5 mg/dL [facility] Est Glomerular Filtration Rate 69 >=60 mL/min/1. 73 m?? [facility] Comment: This patient's estimated [...] Lab Rosa Cornejo MD CHEMISTRY ORDERABLE S [facility] [place] [address] * Blood culture (11/02/2023 12:35 AM EDT) Blood Culture No growth at 5 days. [facility] Blood 11/02/2023 12:3 5 AM EDT 11/02/2023 1:55 AM EDT Comment:#2 site ukn Narrative Resulting Agency Comment Spec In Lab Rosa Hugo MD MICROBIOLOGY - BLO OD ORDERABLES Performing Organization Address [facility] Co de Phone Number [facility] [place] [address] * Blood culture (11/02/2023 12:15 AM EDT) Blood Culture No growth at 5 days. [facility] Blood 11/02/2023 12:1 5 AM EDT 11/02/2023 1:54 AM EDT Comment:#1site unk Narrative Resulting Agency Comment Spec In Lab Rosa Hugo MD MICROBIOLOGY - BLO OD ORDERABLES Performing Organization Address [facility] Co de Phone Number [facility] [place] [address] * EKG 12 Lead (11/01/2023 10:10 PM EDT) Ventricular rate 139 BPM MUSE SYSTEM Atrial Rate 139 BPM MUSE SYSTEM P-R Interval 168 ms MUSE SYSTEM QRS Duration 84 ms MUSE SYSTEM Q-T Interval 286 ms MUSE SYSTEM QTC Calculated (Bezet) 435 ms MUSE SYSTEM Calculated R [place] -59 degrees MUSE SYSTEM Calculated T [place] -27 degrees MUSE SYSTEM INTERPRETATION Mid-RP tachycardia, consider sinus tachycardia or SVT Left axis deviation Moderate voltage criteria for LVH, may be normal variant ( R in aVL , Upham product ) Inferior infarct (cited on or before 01-NOV-2023) Anterolateral infarct (cited on or before 01-NOV-2023) Abnormal ECG When compared with ECG of 01-NOV-2023 15:22, Vent. rate Although rate has increased Serial changes of Anterior infarct Present I personally reviewed the tracing and edited the fellows interpretation Confirmed by fellow MD Bowen Ashley ([id number]) on 11/04/2023 7:57:50 AM Confirmed by MD Carrillo Danette ([id number]) on 11/04/2023 4:32:03 PM MUSE SYSTEM 11/01/2023 10:1 0 PM EDT 11/04/2023 4:32 PM EDT Rosa Cornejo MD ECG ORDERABLES MUSE SYSTEM * (ABNORMAL) Hemogram (11/01/2023 10:06 PM EDT) White Blood Cell 10.4(H) 4.0 - 9.5 x10(3)/[facility] Red Blood Cell 4.11 4.00 - 5.21 x10(6)/[facility] Hemoglobin 14.0 11.7 - 15.5 g/dL [facility] Hematocrit 41.1 35.7 - 45.8 % [facility] Mean Cell Volume 100.0(H) 82.6 - 94.4 fL [facility] Mean Cell Hemoglobin 34.1(H) 27.1 - 32.0 pg [facility] Mean Cell Hemoglobin Concentration 34.1 31.7 - 35.0 g/dL [facility] Platelet 197 145 - 357 x10(3)/ L [facility] RDW Standard Deviation 54.0(H) 37.0 - 46.0 fL [facility] RDW coefficient of variation 14.6(H) 11.5 - 14.1 % [facility] Mean Platelet Volume 11.2 7.6 - 12.9 fL [facility] NRBC% auto 0.0 % [facility] NRBC Absolute 0.000 0.000 - 0.000 x10(3)/ L [facility] Blood 11/01/2023 10:0 6 PM EDT 11/01/2023 10:22 PM EDT Narrative Resulting Agency Comment Spec In Lab Rosa Hugo MD HEMATOLOGY ORDERAB LES Performing Organization Address City/[facility]/ZIP Co de Phone Number [facility] [place] [address] * POCT Glucose (11/01/2023 5:59 PM EDT) [facility] Signature Glucose, POC 104 65 - 199 mg/dL [facility] Comment: Supplemental ranges: <140 mg/dL before meals <180 mg/dL all other times of the day Blood 11/01/2023 5:59 PM EDT 11/01/2023 5:59 PM EDT Rosa Hugo MD POINT OF CARE TEST ORDERABLES Performing Organization Address [facility] Co de Phone Number [facility] [place] [address] * POCT Glucose (11/01/2023 5:35 PM EDT) [facility] Glucose, POC 85 65 - 199 mg/dL [facility] Comment: Supplemental ranges: <140 mg/dL before meals <180 mg/dL all other times of the day Blood 11/01/2023 5:35 PM EDT 11/01/2023 5:35 PM EDT Rosa Hugo MD POINT OF CARE TEST ORDERABLES Performing Organization Address City/[facility] Co de Phone Number [facility] [place] [address] * EKG 12 Lead (11/01/2023 3:22 PM EDT) Ventricular rate 59 BPM MUSE SYSTEM Atrial Rate 59 BPM MUSE SYSTEM P-R Interval 220 ms MUSE SYSTEM QRS Duration 94 ms MUSE SYSTEM Q-T Interval 428 ms MUSE SYSTEM QTC Calculated (Bezet) 423 ms MUSE SYSTEM Calculated P [place] 76 degrees MUSE SYSTEM Calculated R [place] -50 degrees MUSE SYSTEM Calculated T [place] -59 degrees MUSE SYSTEM INTERPRETATION Sinus bradycardia [...] Modality Other Narrative 11/02/2023 4:57 PM EDT ?[facility] ? Cardiac Catheterization/Intervention Report ? Patient Name: Adin Santos ? Procedure Date: 11/01/2023 ? A #: [id number] ? Primary Physician: Rosa Dewey I ? Case #: [id number] ? File Name: [id number] ? Catheterization Order Number: [id number] ? [facility] ? Final Report [place], [place] ? Patient Name: ? Adin M. Goguen ?ID#: ?[id number] ? : ?1940 ? Procedure Date: ? [...] procedure was Urgent. The indication for ?the microbiological lab technician visit is ACS greater than [...] ??A premounted ? 3.50 x 15 mm [place] (RADHA) was deployed with a maximum ? [...] A premounted 3.50 x 15 mm [place] (RADHA) was deployed ? with a maximum [...] dose administered prior to arrival in the microbiological lab technician. ?Recommended anti-platelet/anti-thrombotic regimen: ?Continue aspirin 81 mg daily for indefinitely. ?Continue clopidogrel 75 mg daily for 12 months then stop. ?These recommendations are made at the time of the intervention. Patient ?and provider preferences or a changing clinical situation may require ?modification of this regimen. Consult [facility] Interventional Cardiology for ?questions. ?The 1 year [...] Procedure Note Rosa Dewey MD - 12/12/2023 [facility] Cardiac Catheterization/Intervention Report Patient Name: Adin Santos Procedure Date: 11/01/2023 A #: [id number] Primary Physician: Rosa Dewey I Case #: [id number] File Name: [id number] Catheterization Order Number: [id number] [facility] FinalReport [place], [place] Patient Name: Adin Santos ID#:[id number] :1940 Procedure Date: November 01, 2023 Case [...] was designated as ASA Class III. [facility] is 4: Vulnerable. Diagnostic Tests: Prior Coronary Angiography: LV ejection fraction within 6 months is 65%. Electrocardiography: EKG was assessed by ECG. EKG was Abnormal. EKG showed other abnormality. Medications Prior to Procedure: Aspirin, Angiotensin II Receptor Rodrick and Statin. Indications for Diagnostic Cath: The priority of the diagnostic procedure was Urgent. The indicationfor the microbiological lab technician visit is ACS greater than [...] 14 atmospheres. Apremounted 3.50 x 15 mm [place] (RADHA) was deployed with amaximum inflation pressure [...] The lesion was predilated with a 3.00mm [id number] MM balloon with a maximum inflation pressure of 14atmospheres. A premounted 3.50 x 15 mm [place] (RADHA) wasdeployed with a maximum inflation pressure [...] dose administered prior to arrival in the microbiological lab technician. Recommended anti-platelet/anti-thrombotic regimen: Continue aspirin 81 mg daily for indefinitely. Continue clopidogrel 75 mg daily for 12 months then stop. These recommendations are made at the time of the intervention.Patient and provider preferences or a changing clinical situation mayrequire modification of this regimen. Consult [facility] Interventional Cardiologyfor questions. The 1 year bleeding [...] * POCT Glucose (11/01/2023 7:06 AM EDT) [facility] Glucose, POC 93 65 - 199 mg/dL [facility] Comment: Supplemental ranges: <140 mg/dL before meals <180 mg/dL all other times of the day Blood 11/01/2023 7:06 AM EDT 11/01/2023 7:06 AM EDT Jean Laboy MD POINT OF CARE TEST O RDERABLES [facility] [place] [address] * (ABNORMAL) Differential, Automated (11/01/2023 3:09 AM EDT) Pathologist [facility] Neutrophil % 63.9 % [facility] Neutrophil Absolute 5.54 1.70 - 6.10 x10(3)/mc L [facility] Lymph % 20.0 % [facility] Lymphocytes Abs 1.7 0.9 - 3.2 x10(3)/mc L [facility] Monocyte % 11.9 % [facility] Monocyte Abs 1.0(H) 0.3 - 0.9 x10(3)/mc L [facility] Eos % 3.2 % [facility] Eosinophils Abs 0.3 0.0 - 0.4 x10(3)/ L [facility] Basophil % 0.5 % [facility] Baso Absolute 0.0 0.0 - 0.1 x10(3)/ L [facility] Immature Gran % 0.50 % [facility] Comment: Immature granulocytes(IG's)percentage and absolute count will include metamyelocytes, myelocytes, and promyelocytes. Blood smears from CBCs yielding IG's will be scanned manually for concordance. If this scan disagrees with the automated IG or if promyelocytes are noted, a manual differential will be performed. Immature Gran Absolute 0.04 0.00 - 0.04 x10(3)/ L [facility] Blood 11/01/2023 3:09 AM EDT 11/01/2023 3:29 AM EDT Narrative Resulting Agency Comment Spec In Lab Qamar Gallardo MD HEMATOLOGY ORDERABLE S Performing Organization Address City/State/[facility] Co de Phone Number [facility] [place] [address] * (ABNORMAL) Hemogram (11/01/2023 3:09 AM EDT) White Blood Cell 8.7 4.0 - 9.5 x10(3)/ L [facility] Red Blood Cell 3.72(L) 4.00 - 5.21 x10(6)/mc L [facility] Hemoglobin 12.5 11.7 - 15.5 g/dL [facility] Hematocrit 36.8 35.7 - 45.8 % [facility] Mean Cell Volume 98.9(H) 82.6 - 94.4 fL [facility] Mean Cell Hemoglobin 33.6(H) 27.1 - 32.0 pg [facility] Mean Cell Hemoglobin Concentration 34.0 31.7 - 35.0 g/dL [facility] Platelet 184 145 - 357 x10(3)/mc L [facility] RDW Standard Deviation 53.5(H) 37.0 - 46.0 fL [facility] RDW coefficient of variation 14.6(H) 11.5 - 14.1 % [facility] Mean Platelet Volume 11.3 7.6 - 12.9 fL [facility] NRBC% auto 0.0 % [facility] NRBC Absolute 0.000 0.000 - 0.000 x10(3)/mc L [facility] Blood 11/01/2023 3:09 AM EDT 11/01/2023 3:29 AM EDT Narrative Resulting Agency Comment Spec In Lab Qamar Gallardo MD HEMATOLOGY ORDERABLE S Performing Organization Address City/[facility]/ZIP Co de Phone Number [facility] [place] [address] * Phosphorus (11/01/2023 3:09 AM EDT) Phosphorus 2.5 2.5 - 4.5 mg/dL [facility] Blood 11/01/2023 3:09 AM EDT 11/01/2023 3:29 AM EDT Narrative Resulting Agency Comment Spec In Lab Rosa Cornejo MD CHEMISTRY ORDERABLE S Performing Organization Address City/[facility]/ZIP Co de Phone Number [facility] [place] [address] * Magnesium (11/01/2023 3:09 AM EDT) Magnesium 0.82 0.69 - 1.07 mmol/L [facility] Blood 11/01/2023 3:09 AM EDT 11/01/2023 3:29 AM EDT Narrative Resulting Agency Comment Spec In Lab Rosa Cornejo MD CHEMISTRY ORDERABLE S [facility] [place] [address] * (ABNORMAL) Basic Metabolic Panel (non-fasting) (11/01/2023 3:09 AM EDT) Glucose 100 65 - 199 mg/dL [facility] Comment:Diabetes: >=200 mg/d L plus symptoms Blood Urea Nitrogen 14 8 - 18 mg/dL [facility] Creatinine 0.83 0.70 - 1.20 mg/dL [facility] Sodium 137 135 - 145 mmol/L [facility] Potassium 3.4(L) 3.5 - 5.0 mmol/L [facility] Comment: Please note: ??Patients with WBC >100,000 may have falsely elevated Potassium levels. ??For accurate Potassium quantification in these patients send serum separator tube (gold top) for subsequent determinations. ??Contact the Clinical Chemistry Laboratory if there are any questions. Chloride 105 98 - 107 mmol/L [facility] Carbon Dioxide 24 22 - 31 mmol/L [facility] Anion Gap 8 5 - 15 mmol/L [facility] Calcium 8.6 8.5 - 10.5 mg/dL [facility] Est Glomerular Filtration Rate 69 >=60 mL/min/1. 73 m?? [facility] Comment: This patient's estimated [...] Lab Rosa Cornejo MD CHEMISTRY ORDERABLE S [facility] [place] [address] * (ABNORMAL) Troponin (10/31/2023 2:46 PM EDT) Troponin-T, High Sensitivity 544(H) <=14 ng/L [facility] Comment: This patient's troponin [...] troponin value can be found in the [facility] Test Catalog Troponin - [facility] Test Catalog Reference: Fourth Brainerd Definition of Myocardial Infarction. Journal of the [place] [employer] 2018;72:5483-1056 Blood 10/31/2023 2:46 PM EDT 10/31/2023 2:55 PM EDT Narrative Resulting Agency Comment Spec In Lab Jean Laboy MD CHEMISTRY ORDERABLES Performing Organization Address [facility] Co de Phone Number [facility] [place] [place] [address] * EKG 12 Lead (10/31/2023 1:07 PM EDT) Ventricular rate 54 BPM MUSE SYSTEM Atrial Rate 54 BPM MUSE SYSTEM P-R Interval 218 ms MUSE SYSTEM QRS Duration 92 ms MUSE SYSTEM Q-T Interval 540 ms MUSE SYSTEM QTC Calculated (Bezet) 512 ms MUSE SYSTEM Calculated P [place] 85 degrees MUSE SYSTEM Calculated R [place] -44 degrees MUSE SYSTEM Calculated T [place] -69 degrees MUSE SYSTEM INTERPRETATION Sinus bradycardia with 1st degree A-V block Left axis deviation Moderate voltage criteria for LVH, may be normal variant ( R in aVL , Upham product ) T wave abnormality, consider inferolateral ischemia Prolonged QT Abnormal ECG When compared with ECG of 30-OCT-2023 20:21, Incomplete right bundle branch block is no longer Present Confirmed by MD NEFTALI, CHIDI ([id number]) on 10/31/2023 2:28:46 PM MUSE SYSTEM 10/31/2023 1:07 PM EDT 10/31/2023 2:28 PM EDT Rosa Cornejo MD ECG ORDERABLES Performing Organization Address [facility] Co de Phone Number MUSE SYSTEM * (ABNORMAL) Troponin (10/31/2023 11:37 AM EDT) Pathologist [facility] Troponin-T, High Sensitivity 580(H) <=14 ng/L [facility] Comment: This patient's troponin [...] troponin value can be found in the [facility] Test Catalog Troponin - [facility] Test Catalog Reference: Fourth Brainerd Definition of Myocardial Infarction. Journal of the [place] College [employer]iology 2018;72:6756-9088 Blood 10/31/2023 11:3 7 AM EDT 10/31/2023 11:50 AM EDT Narrative Resulting Agency Comment Spec In Lab Rosa Cornejo MD CHEMISTRY ORDERABLE S [facility] [place] [address] * ECHO COMPLETE (10/31/2023 8:52 AM EDT) Anatomical Region Laterality Modality Cardiac Other 10/31/2023 7:57 AM EDT Narrative 10/31/2023 9:45 AM [place]T [address] [place] [address] ? Echocardiogram Report Name: ADIN SANTOS ? Study Date: 10/31/2023 07:57 AMBP: 106/76 mmHg ? Patient Location: [facility] 0[facility] A : 1940 ? Height: 163 cm ? Account: [id number] Age: 83 yrs ? Weight: 76 kg Gender: Female ?BSA: 1.8 m2 Ordering Physician: ROSA DEWEY Referring Physician: OMAIRA GIRON Performed By: HAFSA Carmichael Reason For Study: STEMI Interpreting Fellow: Raymond Warren. Exam Location: [facility]. Interpretation Summary -The left ventricle is [...] is no prior echocardiogram for comparison. Procedure Complete-35450. Satisfactory quality. There is sinus bradycardia. Left [...] Note Edgard Wang MD - 10/31/2023 [address] [place] [id number] Echocardiogram Report Name: TREY SANTOSMarco A Catherine Study Date: 407:57 AMBP: 106/76 mmHg Patient Location: [address] : 1940 Height: 163 cm Account: [id number] Age: 83 yrs Weight: 76 kg Gender: Female BSA: 1.8 m2 Ordering Physician: ROSA DEWEY Referring Physician: OMAIRA GIRON Performed By: HAFSA Carmichael Reason For Study: STEMI Interpreting Fellow: Raymond Warren. Exam Location: [facility]. Interpretation Summary -The left ventricle is [...] is no prior echocardiogram for comparison. Procedure Complete-54863. Satisfactory quality. There is sinus bradycardia. Left [...] EDT) Troponin-T, High Sensitivity 571(H) <=14 ng/L [facility] Comment: This patient's troponin [...] troponin value can be found in the [facility] Test Catalog Troponin - [facility] Test Catalog Reference: Fourth Brainerd Definition of Myocardial Infarction. Journal of the [place] College [employer]iology 2018;72:5338-6529 Blood 10/31/2023 8:51 AM EDT 10/31/2023 9:12 AM EDT Narrative Resulting Agency Comment Spec In Lab Rosa Cornejo MD CHEMISTRY ORDERABLE S Performing Organization Address City/State/[facility] Co de Phone Number [facility] [place] [address] * CARDIAC CATHETERIZATION (10/31/2023 8:10 AM EDT) Anatomical Region Laterality Modality Other Narrative 11/07/2023 9:42 AM EDT ?[facility] ? Cardiac Catheterization/Intervention Report ? Patient Name: Adin Santos M. ? Procedure Date: 10/30/2023 ? A #: [id number] ? Primary Physician: Rosa Dewey I ? Case #: [id number] ? File Name: [id number] ? Catheterization Order Number: [id number] ? [facility] ? Final Report [place], [place] ? Patient Name: ? Adin M. Goguen ?ID#: ?[id number] ? : ?1940 ? Procedure Date: ? October 30, 2023 ? Case #: ? [id number] ? Room: ? 5 ? Case Physician: [...] procedure was Emergent. The indication for ?the microbiological lab technician visit is ACS less than [...] ? A premounted 4.00 x 38 mm [place] (RADHA) was deployed ? with a maximum [...] dose administered prior to arrival in the microbiological lab technician. ?Recommended anti-platelet/anti-thrombotic regimen: ?Continue aspirin 81 mg daily for 12 months then stop. ?Continue clopidogrel 75 mg daily for indefinitely. ?These recommendations are made at the time of the intervention. Patient ?and provider preferences or a changing clinical situation may require ?modification of this regimen. Consult [facility] Interventional Cardiology for ?questions. ? Conclusions: ?* [...] Dewey M.D. ? Electronically Signed by: Rosa Dewye M.D. ? Report Finalized: 11/07/2023 ??09:36 ? Report Last Ammended: 12/05/2023 ??09:12 ? Procedure Note Rosa Dewey MD - 12/05/2023 [facility] Cardiac Catheterization/Intervention Report Patient Name: Adin Santos Procedure Date: 10/30/2023 A #: [id number] Primary Physician: Rosa Dewey I Case #: [id number] File Name: [id number] Catheterization Order Number: [id number] [facility] FinalReport [place], [place] Patient Name: Adin Santos ID#:[id number] :1940 Procedure Date: October 30, 2023 Case [...] was designated as ASA Class III. The [facility] clinical frailtyscale is 5: Mildly Frail. Diagnostic Tests: Electrocardiography: EKG was assessed by ECG. EKG was Abnormal. EKG showed STDeviation >= 0.5 mm, other abnormality and dynamic EKG changes. Medications Prior to Procedure: Aspirin, Angiotensin II Receptor Rodrick, Beta Rodrick andStatin. Indications for Diagnostic Cath: The priority of the diagnostic procedure was Emergent. Theindication for the microbiological lab technician visit is ACS less than [...] A premounted 4.00 x 38 mm [place] (RADHA) wasdeployed with a maximum inflation pressure [...] dose administered prior to arrival in the microbiological lab technician. Recommended anti-platelet/anti-thrombotic regimen: Continue aspirin 81 mg daily for 12 months then stop. Continue clopidogrel 75 mg daily for indefinitely. These recommendations are made at the time of the intervention.Patient and provider preferences or a changing clinical situation mayrequire modification of this regimen. Consult [facility] Interventional Cardiologyfor questions. Conclusions: * Two vessel [...] * (ABNORMAL) Troponin (10/31/2023 4:21 AM EDT) [facility] Troponin-T, High Sensitivity 457(H) <=14 ng/L [facility] Comment: This patient's troponin [...] troponin value can be found in the [facility] Test Catalog Troponin - [facility] Test Catalog Reference: Fourth Brainerd Definition of Myocardial Infarction. Journal of the [place] College of Cardiology 2018;72:5127-8670 Blood 10/31/2023 4:21 AM EDT 10/31/2023 4:30 AM EDT Narrative Resulting Agency Comment Spec In Lab Rosa Cornejo MD CHEMISTRY ORDERABLE S Performing Organization Address City/State/[facility] Co de Phone Number [facility] [place] [address] * (ABNORMAL) Differential, Automated (10/31/2023 3:05 AM EDT) Neutrophil % 71.7 % [facility] Neutrophil Absolute 8.21(H) 1.70 - 6.10 x10(3)/mc L [facility] Lymph % 16.9 % [facility] Lymphocytes Abs 1.9 0.9 - 3.2 x10(3)/mc L [facility] Monocyte % 9.4 % [facility] Monocyte Abs 1.1(H) 0.3 - 0.9 x10(3)/mc L [facility] Eos % 1.3 % [facility] Eosinophils Abs 0.2 0.0 - 0.4 x10(3)/mc L [facility] Basophil % 0.4 % [facility] Baso Absolute 0.0 0.0 - 0.1 x10(3)/ L [facility] Immature Gran % 0.30 % [facility] Comment: Immature granulocytes(IG's)percentage and absolute count will include metamyelocytes, myelocytes, and promyelocytes. Blood smears from CBCs yielding IG's will be scanned manually for concordance. If this scan disagrees with the automated IG or if promyelocytes are noted, a manual differential will be performed. Immature Gran Absolute 0.04 0.00 - 0.04 x10(3)/ L [facility] Blood 10/31/2023 3:05 AM EDT 10/31/2023 3:13 AM EDT Narrative Resulting Agency Comment Spec In Lab Qamar Gallardo MD HEMATOLOGY ORDERABLE S Performing Organization Address City/State/[facility] Co de Phone Number [facility] [place] [address] * (ABNORMAL) Hemogram (10/31/2023 3:05 AM EDT) White Blood Cell 11.5(H) 4.0 - 9.5 x10(3)/ L [facility] Red Blood Cell 3.75(L) 4.00 - 5.21 x10(6)/ L [facility] Hemoglobin 12.6 11.7 - 15.5 g/dL [facility] Hematocrit 37.1 35.7 - 45.8 % [facility] Mean Cell Volume 98.9(H) 82.6 - 94.4 fL [facility] Mean Cell Hemoglobin 33.6(H) 27.1 - 32.0 pg [facility] Mean Cell Hemoglobin Concentration 34.0 31.7 - 35.0 g/dL [facility] Platelet 206 145 - 357 x10(3)/ L [facility] RDW Standard Deviation 53.4(H) 37.0 - 46.0 fL [facility] RDW coefficient of variation 14.6(H) 11.5 - 14.1 % [facility] Mean Platelet Volume 11.1 7.6 - 12.9 fL [facility] NRBC% auto 0.0 % [facility] NRBC Absolute 0.000 0.000 - 0.000 x10(3)/mc L [facility] Blood 10/31/2023 3:05 AM EDT 10/31/2023 3:13 AM EDT Narrative Resulting Agency Comment Spec In Lab Qamar Gallardo MD HEMATOLOGY ORDERABLE S Performing Organization Address [facility] Co de Phone Number [facility] [place] [address] * (ABNORMAL) APTT (10/31/2023 3:05 AM EDT) Partial Thromboplastin Time 67(H) 25 - 37 sec [facility] Comment: The PTT is [...] ES Performing Organization Address [facility] Co de Phone Number [facility] [place] [address] * (ABNORMAL) Prothrombin Time (10/31/2023 3:05 AM EDT) Prothrombin Time 12.6(H) 9.4 - 12.5 sec [facility] International Normalization Ratio 1.1 [facility] Comment: An INR <2.0 [...] Lab Rosa Cornejo MD HEMATOLOGY ORDERABL ES [facility] [place] [address] * (ABNORMAL) Differential, Automated (10/31/2023 1:37 AM EDT) Neutrophil % 71.1 % [facility] Neutrophil Absolute 7.53(H) 1.70 - 6.10 x10(3)/mc L [facility] Lymph % 18.0 % [facility] Lymphocytes Abs 1.9 0.9 - 3.2 x10(3)/mc L [facility] Monocyte % 8.7 % [facility] Monocyte Abs 0.9 0.3 - 0.9 x10(3)/mc L [facility] Eos % 1.6 % [facility] Eosinophils Abs 0.2 0.0 - 0.4 x10(3)/mc L [facility] Basophil % 0.4 % [facility] Baso Absolute 0.0 0.0 - 0.1 x10(3)/mc L [facility] Immature Gran % 0.20 % [facility] Comment: Immature granulocytes(IG's)percentage and absolute count will include metamyelocytes, myelocytes, and promyelocytes. Blood smears from CBCs yielding IG's will be scanned manually for concordance. If this scan disagrees with the automated IG or if promyelocytes are noted, a manual differential will be performed. Immature Gran Absolute 0.02 0.00 - 0.04 x10(3)/mc L [facility] Blood 10/31/2023 1:37 AM EDT 10/31/2023 1:46 AM EDT Narrative Resulting Agency Comment Spec In Lab Qamar Gallardo MD HEMATOLOGY ORDERABLE S [facility] [place] [address] * (ABNORMAL) Hemogram (10/31/2023 1:37 AM EDT) White Blood Cell 10.6(H) 4.0 - 9.5 x10(3)/mc L [facility] Red Blood Cell 3.78(L) 4.00 - 5.21 x10(6)/mc L [facility] Hemoglobin 13.0 11.7 - 15.5 g/dL [facility] Hematocrit 37.9 35.7 - 45.8 % [facility] Mean Cell Volume 100.3(H) 82.6 - 94.4 fL [facility] Mean Cell Hemoglobin 34.4(H) 27.1 - 32.0 pg [facility] Mean Cell Hemoglobin Concentration 34.3 31.7 - 35.0 g/dL [facility] Platelet 204 145 - 357 x10(3)/mc L [facility] RDW Standard Deviation 54.3(H) 37.0 - 46.0 fL [facility] RDW coefficient of variation 14.6(H) 11.5 - 14.1 % [facility] Mean Platelet Volume 11.1 7.6 - 12.9 fL [facility] NRBC% auto 0.0 % [facility] NRBC Absolute 0.000 0.000 - 0.000 x10(3)/mc L [facility] Blood 10/31/2023 1:37 AM EDT 10/31/2023 1:46 AM EDT Narrative Resulting Agency Comment Spec In Lab Qamar Gallardo MD HEMATOLOGY ORDERABLE S [facility] [place] [address] * Phosphorus (10/31/2023 1:37 AM EDT) [facility] Phosphorus 3.2 2.5 - 4.5 mg/dL [facility] Blood 10/31/2023 1:37 AM EDT 10/31/2023 1:46 AM EDT Narrative Resulting Agency Comment Spec In Lab Rosa Cornejo MD CHEMISTRY ORDERABLE S Performing Organization Address City/[facility]/ZIP Co de Phone Number [facility] [place] [address] * Magnesium (10/31/2023 1:37 AM EDT) [facility] Magnesium 0.83 0.69 - 1.07 mmol/L [facility] Blood 10/31/2023 1:37 AM EDT 10/31/2023 1:46 AM EDT Narrative Resulting Agency Comment Spec In Lab Rosa Cornejo MD CHEMISTRY ORDERABLE S Performing Organization Address City/[facility]/ZIP Co de Phone Number [facility] [place] [address] * Basic Metabolic Panel (non-fasting) (10/31/2023 1:37 AM EDT) [facility] Glucose 114 65 - 199 mg/dL [facility] Comment:Diabetes: >=200 mg/d L plus symptoms Blood Urea Nitrogen 13 8 - 18 mg/dL [facility] Creatinine 0.81 0.70 - 1.20 mg/dL [facility] Sodium 140 135 - 145 mmol/L [facility] Potassium 3.9 3.5 - 5.0 mmol/L [facility] Comment: Please note: ??Patients with WBC >100,000 may have falsely elevated Potassium levels. ??For accurate Potassium quantification in these patients send serum separator tube (gold top) for subsequent determinations. ??Contact the Clinical Chemistry Laboratory if there are any questions. Chloride 107 98 - 107 mmol/L [facility] Carbon Dioxide 25 22 - 31 mmol/L [facility] Anion Gap 8 5 - 15 mmol/L [facility] Calcium 8.6 8.5 - 10.5 mg/dL [facility] Est Glomerular Filtration Rate 72 >=60 mL/min/1. 73 m?? [facility] Comment: This patient's estimated [...] Lab Rosa Cornejo MD CHEMISTRY ORDERABLE S [facility] [place] [address] * (ABNORMAL) Troponin (10/31/2023 1:37 AM EDT) Troponin-T, High Sensitivity 329(H) <=14 ng/L [facility] Comment: This patient's troponin [...] troponin value can be found in the [facility] Test Catalog Troponin - [facility] Test Catalog Reference: Fourth Brainerd Definition of Myocardial Infarction. Journal of the [place] College [employer]iology 2018;72:7160-1381 Blood 10/31/2023 1:37 AM EDT 10/31/2023 1:46 AM EDT Narrative Resulting Agency Comment Spec In Lab Rosa Cornejo MD CHEMISTRY ORDERABLE S Performing Organization Address City/State/[facility] [place] [address] * EKG 12 Lead (10/31/2023 1:20 AM EDT) Ventricular rate 52 BPM MUSE SYSTEM Atrial Rate 52 BPM MUSE SYSTEM P-R Interval 224 ms MUSE SYSTEM QRS Duration 108 ms MUSE SYSTEM Q-T Interval 544 ms MUSE SYSTEM QTC Calculated (Bezet) 505 ms MUSE SYSTEM Calculated P [place] 90 degrees MUSE SYSTEM Calculated R [place] -57 degrees MUSE SYSTEM Calculated T [place] -63 degrees MUSE SYSTEM INTERPRETATION Sinus bradycardia [...] ORDERABLES Performing Organization Address [facility] de Phone Number MUSE SYSTEM * EKG 12 Lead (10/30/2023 10:40 PM EDT) Ventricular rate 55 BPM MUSE SYSTEM Atrial Rate 55 BPM MUSE SYSTEM P-R Interval 232 ms MUSE SYSTEM QRS Duration 102 ms MUSE SYSTEM Q-T Interval 520 ms MUSE SYSTEM QTC Calculated (Bezet) 497 ms MUSE SYSTEM Calculated P [place] 75 degrees MUSE SYSTEM Calculated R [place] -53 degrees MUSE SYSTEM Calculated T [place] -57 degrees MUSE SYSTEM INTERPRETATION Sinus bradycardia with 1st degree A-V block Left anterior fascicular block Moderate voltage criteria for LVH, may be normal variant ( R in aVL , Upham product ) T wave abnormality, consider inferior [...] ORDERABLES Performing Organization Address [facility] Phone Number MUSE SYSTEM * XR Chest One View (10/30/2023 10:10 PM EDT) WORKSTATION ID [id number] RAD Anatomical Region Laterality Modality Chest N/A Digital Radiogra phy Impressions 10/30/2023 10:32 PM EDT 1. ??Examination limited by low lung volumes. 2. ??Findings suggesting pulmonary vascular congestion with possible mild interstitial edema. 3. ??Known ascending aortic aneurysm, as seen on recent CT. 4. ??Nonspecific widening mediastinum. This can be secondary to magnification from portable technique and low lung volumes. Findings similar to post tensioning ironworker radiograph from CT 10/30/2023. Thank you for letting us participate in the care of this patient. ??If you are a health care provider and have any questions regarding this report, please contact the number below. ??For patients who have questions please contact the health day care assistant that requested your imaging first. ? Electronically signed by: Wilson Mccartney MD, [facility] ([phone]), at 10/30/2023 10:32 PM Narrative 10/30/2023 10:32 [...] and low lung volumes. Findings similar to post tensioning ironworker radiograph from CT 10/30/2023. Thank you for letting us participate in the care of this patient. If youare a health care provider and have any questions regarding this report,please contact the number below. For patients who have questions please contactthe health day care assistant that requested your imaging first. Rosa Cornejo MD IMG DX ORDERABLES * Green Tube HOLD (10/30/2023 10:05 PM EDT) [facility] Green Hold Sample in lab. [facility] Blood Venous Draw / Unknown 10/30/2023 10:05 PM EDT 10/30/2023 10:13 PM EDT Qamar Gallardo MD CHEMISTRY ORDERABLES [facility] [place] [address] * (ABNORMAL) Differential, Automated (10/30/2023 10:05 PM EDT) [facility] Neutrophil % 76.6 % [facility] Neutrophil Absolute 6.94(H) 1.70 - 6.10 x10(3)/mc L [facility] Lymph % 15.4 % [facility] Lymphocytes Abs 1.4 0.9 - 3.2 x10(3)/mc L [facility] Monocyte % 6.1 % [facility] Monocyte Abs 0.6 0.3 - 0.9 x10(3)/mc L [facility] Eos % 1.1 % [facility] Eosinophils Abs 0.1 0.0 - 0.4 x10(3)/ L [facility] Basophil % 0.6 % [facility] Baso Absolute 0.0 0.0 - 0.1 x10(3)/ L [facility] Immature Gran % 0.20 % [facility] Comment: Immature granulocytes(IG's)percentage and absolute count will include metamyelocytes, myelocytes, and promyelocytes. Blood smears from CBCs yielding IG's will be scanned manually for concordance. If this scan disagrees with the automated IG or if promyelocytes are noted, a manual differential will be performed. Immature Gran Absolute 0.02 0.00 - 0.04 x10(3)/ L [facility] Blood 10/30/2023 10:0 5 PM EDT 10/30/2023 10:12 PM EDT Narrative Resulting Agency Comment Spec In Lab Qamar Gallardo MD HEMATOLOGY ORDERABLE S [facility] [place] [address] * (ABNORMAL) Hemogram (10/30/2023 10:05 PM EDT) White Blood Cell 9.0 4.0 - 9.5 x10(3)/ L [facility] Red Blood Cell 3.96(L) 4.00 - 5.21 x10(6)/mc L [facility] Hemoglobin 13.3 11.7 - 15.5 g/dL [facility] Hematocrit 39.1 35.7 - 45.8 % [facility] Mean Cell Volume 98.7(H) 82.6 - 94.4 fL [facility] Mean Cell Hemoglobin 33.6(H) 27.1 - 32.0 pg [facility] Mean Cell Hemoglobin Concentration 34.0 31.7 - 35.0 g/dL [facility] Platelet 211 145 - 357 x10(3)/ L [facility] RDW Standard Deviation 53.6(H) 37.0 - 46.0 fL [facility] RDW coefficient of variation 14.6(H) 11.5 - 14.1 % [facility] Mean Platelet Volume 11.1 7.6 - 12.9 fL [facility] NRBC% auto 0.0 % [facility] NRBC Absolute 0.000 0.000 - 0.000 x10(3)/mc L [facility] Blood 10/30/2023 10:0 5 PM EDT 10/30/2023 10:12 PM EDT Narrative Resulting Agency Comment Spec In Lab Qamar Gallardo MD HEMATOLOGY ORDERABLE S Performing Organization Address City/[facility]/ZIP Co de Phone Number [facility] [place] [address] * Hemoglobin A1c (10/30/2023 10:05 PM EDT) Hemoglobin A1c 5.5 4.3 - 5.6 % [facility] Comment: Reference Range: 4.3 [...] Mellitus, Diabetes Care 2013; 36: Suppl. 1, J60-50 Estimated Average Glucose See note mg/dL [facility] Comment: Estimated Average Glucose not appropriate for patients over 70 years of age. Blood 10/30/2023 10:0 5 PM EDT 10/30/2023 10:12 PM EDT Narrative Resulting Agency Comment Spec In Lab Rosa Cornejo MD CHEMISTRY ORDERABLE S Performing Organization Address City/[facility]/ZIP Co de Phone Number [facility] [place] [address] * Lipid Panel (Reflex Direct LDL) (10/30/2023 10:05 PM EDT) Cholesterol, Total 218 mg/dL [facility] Comment: Desirable: ? <200 mg/dL Borderline High: 200-239 mg/dL Higher: ?>an=453 mg/dL Triglyceride 46 mg/dL [facility] Comment: Normal: ?<150 mg/dL Borderline High: 150-199 mg/dL High: ?200-499 mg/dL Very High: ? >dm=577 mg/dL HDL Cholesterol 64 mg/dL [facility] Comment: Females: High Risk: <50 mg/dL Males: High Risk: <40 mg/dL LDL Cholesterol 145 mg/dL [facility] Comment: Desirable: ? <100 mg/dL Above Desirable: 100-129 mg/dL Borderline High: 130-159 mg/dL High: ?160-189 mg/dL Very High: ? >gt=572 mg/dL Lipid Interpretation See Note [facility] Comment: It is important [...] ACC/AHA Guidelines (most recently Feliciano et al. [facility] 03/23/22): For individuals with atherosclerotic cardiovascular disease (ASCVD)or LDL >if=571 mg/dL, use a high-intensity statin (40-80 mg [...] Lab Rosa Cornejo MD CHEMISTRY ORDERABLE S [facility] [place] [address] * TSH [place] (10/30/2023 10:05 PM EDT) Thyroid Stimulating Hormone 3.35 0.27 - 4.20 mcIU/mL [facility] Comment: Reference Interval (mcIU/mL): Females: ??First Trimester: 0.23-3.88 ??Second Trimester: 0.22-3.90 ??Third Trimester: 0.44-4.66 Blood 10/30/2023 10:0 5 PM EDT 10/30/2023 10:12 PM EDT Narrative Resulting Agency Comment Spec In Lab Rosa Cornejo MD CHEMISTRY ORDERABLE S [facility] [place] [address] * pro-Brain Natriuretic Peptide (10/30/2023 10:05 PM EDT) NT-proBNP 375 <=449 pg/mL [facility] Blood 10/30/2023 10:0 5 PM EDT 10/30/2023 10:12 PM EDT Narrative Resulting Agency Comment Spec In Lab Rosa Cornejo MD CHEMISTRY ORDERABLE S Performing Organization Address [facility]/ZIP Co de Phone Number [facility] [place] [address] * (ABNORMAL) Comprehensive metabolic panel (non-fasting) (10/30/2023 10:05 PM EDT) Pathologist [facility] Glucose 121 65 - 199 mg/dL [facility] Comment:Diabetes: >=200 mg/d L plus symptoms Blood Urea Nitrogen 14 8 - 18 mg/dL [facility] Creatinine 0.85 0.70 - 1.20 mg/dL [facility] Sodium 142 135 - 145 mmol/L [facility] Potassium 3.9 3.5 - 5.0 mmol/L [facility] Comment: Please note: ??Patients with WBC >100,000 may have falsely elevated Potassium levels. ??For accurate Potassium quantification in these patients send serum separator tube (gold top) for subsequent determinations. ??Contact the Clinical Chemistry Laboratory if there are any questions. Chloride 105 98 - 107 mmol/L [facility] Carbon Dioxide 27 22 - 31 mmol/L [facility] Anion Gap 10 5 - 15 mmol/L [facility] Calcium 8.8 8.5 - 10.5 mg/dL [facility] Protein, Total 6.5 6.1 - 8.0 g/dL [facility] Albumin 4.2 3.2 - 5.2 g/dL [facility] Aspartate Aminotransferase 36(H) 0 - 30 unit/L [facility] Alanine Aminotransferase 17 0 - 30 unit/L [facility] Alkaline Phosphatase 54 35 - 105 unit/L [facility] Bilirubin, Total 0.5 0.2 - 1.3 mg/dL [facility] Est Glomerular Filtration Rate 68 >=60 mL/min/1. 73 m?? [facility] Comment: This patient's estimated [...] MD CHEMISTRY ORDERABLE S Performing Organization Address City/[facility]/ZIP Co de Phone Number [facility] [place] [address] * Phosphorus (10/30/2023 10:05 PM EDT) Phosphorus 3.3 2.5 - 4.5 mg/dL [facility] Blood 10/30/2023 10:0 5 PM EDT 10/30/2023 10:12 PM EDT Narrative Resulting Agency Comment Spec In Lab Rosa Cornejo MD CHEMISTRY ORDERABLE S Performing Organization Address City/[facility]/ZIP Co de Phone Number [facility] [place] [address] * Magnesium (10/30/2023 10:05 PM EDT) Magnesium 0.86 0.69 - 1.07 mmol/L [facility] Blood 10/30/2023 10:0 5 PM EDT 10/30/2023 10:12 PM EDT Narrative Resulting Agency Comment Spec In Lab Rosa Cornejo MD CHEMISTRY ORDERABLE S [facility] [place] [address] * (ABNORMAL) Troponin (10/30/2023 10:05 PM EDT) Troponin-T, High Sensitivity 214(H) <=14 ng/L [facility] Comment: This patient's troponin [...] troponin value can be found in the [facility] Test Catalog Troponin - [facility] Test Catalog Reference: Fourth Brainerd Definition of Myocardial Infarction. Journal of the [place] College of Cardiology 2018;72:9882-1410 Blood 10/30/2023 10:0 5 PM EDT 10/30/2023 10:12 PM EDT Narrative Resulting Agency Comment Spec In Lab Rosa Cornejo MD CHEMISTRY ORDERABLE S [facility] [place] [address] * EKG 12 Lead (10/30/2023 8:21 PM EDT) Ventricular rate 49 BPM MUSE SYSTEM Atrial Rate 49 BPM MUSE SYSTEM P-R Interval 230 ms MUSE SYSTEM QRS Duration 96 ms MUSE SYSTEM Q-T Interval 526 ms MUSE SYSTEM QTC Calculated (Bezet) 475 ms MUSE SYSTEM Calculated P [place] 98 degrees MUSE SYSTEM Calculated R [place] -48 degrees MUSE SYSTEM Calculated T [place] -51 degrees MUSE SYSTEM INTERPRETATION Sinus bradycardia [...] Cornejo MD ECG ORDERABLES Performing Organization Address City/[facility] Co de Phone Number MUSE SYSTEM documented [...] documented as of this encounter Care Teams Review Engineer Relationship Specialty Start Date End Date Rosie Mathews MD [address] [place] [address] PCP - General Family Medicine 11/25/17 11/23/23 documented as of this encounter
--- OUTSIDE RECORDS SUMMARY | 2024-02-17 10:32 | XMS_ITS | Encounter Summary ---
Author Organization [facility] Address [address] [place] [address] Care Team Providers Care Agricultural Engineer Name Role Phone Unavailable Primary Care Provider Unavailabl e Encounter Details Date Type Department Care Team (Late st Contact Info) Description 01/10/2008 Before PRISM Converted Visit (Maple) [facility] - Maple conversion [address] [place] [address] Ray Farooq MD [address] [place] [phone] Social History Tobacco Use Types Packs/Day Years Used Date Smoking Tobacco: Never Assessed Sex and Gender Information Value Date Recorded Sex Assigned at Not on file Gender Identity Not on file Sexual Orientation Not on file documented as of this encounter Consult Notes * Ray Farooq MD - 03/21/2009 4822 EDT [facility] - 01/10/2008 Kirsten Bateman MD [facility] [address] [place] [address] Bateman: Chief complaint: Hearing loss. History of present illness: Alocv-ukadf-wxmq-old female with along history of bilateral hearing [...] is a nonsmoker, nondrinker. She lives in [place]. Review of systems is significant for allergies, [...] Tosin Farooq MD - MLD Job ID: [id number] Doc ID: [id number] cc: Kirsten Bateman MD cc: Kirsten Bateman MD documented in this encounter Plan of Treatment Not on file documented as of this encounter Visit Diagnoses Not on filedocumented in this encounter
--- OUTSIDE RECORDS SUMMARY | 2024-02-17 10:32 | XMS_ITS | Encounter Summary ---
Author Organization [facility] Address [facility] [place] [address] Care Team Providers Care Cage Cashier Name Role Phone Rosie Mathews MD Primary Care Provider [phone] Encounter Details Date Type Department Care Team (Late st Contact Info) Description 10/30/2023 [place] [address] Jose Lee MD [facility] [place] [address] Social History Tobacco Use Types Packs/Day Years [...] 10/30/2023 Referring Provider: Bree Patient Location: [facility] HPI: 83 yoF w/ PMHx [...] with any changes in the patient condition. Joes Lee MD Tapping Machine Operator Automatic documented in this encounter Plan of Treatment Upcoming Encounters Date Type Department Care Team (Late st Contact Info) Description 03/29/2024 11:20 AM EDT Office Visit Cardiology at [address] [place] [address] Izaiah Meyer MD [facility] [place] [address] documented as of this encounter Visit Diagnoses Not on filedocumented in this encounter Care Teams Cage Cashier Relationship Specialty Start Date End Date Rosie Mathews MD [address] [place] [address] PCP - General Family Medicine 11/25/17 11/23/23 documented as of this encounter
--- OUTSIDE RECORDS SUMMARY | 2024-02-17 10:32 | XMS_ITS | Clinical Summary ---
Author Organization [facility] Address [address] [place] [address] Care Team Providers Care Tree Killer Name Role Phone Kirsten Bateman MD Primary Care Provider [phone] Allergies Active Allergy Reactions Criticality Noted Date [...] COVID-19 Vaccine (2022-24 season) 2023 Care Teams Tree Killer Relationship Specialty Start Date End Date Kirsten Bateman MD [address] [place] [phone] PCP - General 01/13/10
--- OUTSIDE RECORDS SUMMARY | 2024-02-17 10:32 | XMS_ITS | Encounter Summary ---
Author Organization [facility] Address [address] [place] [address] Care Team Providers Care Diesel Motor Mechanic Name Role Phone Kirsten Bateman MD Primary Care Provider [phone] Reason for Visit * Reason Comments Hearing Loss tinnitus Encounter Details Date Type Department Care Team (Latest Contact Info) Description 01/15/2010 10:10 EDT Office Visit [address] [address] Unknown, ProviderMD Ray Farooq MD [address] [place] [address] [address] Sensorineural hearing loss, bilateral; Subjective [...] Ray Farooq MD - 01/28/2010 1108 EDT [place] [facility] PROGRESS/FOLLOWUP NOTE - 01/15/2010 CHIEF COMPLAINT: [...] Farooq MD - Ray Farooq MD - [facility] Job ID: SM Doc ID: [id number] Ext Doc ID: [id number] cc: Kirsten Bateman MD * Ray Farooq [...] tinnitus documented in this encounter Care Teams Diesel Motor Mechanic Relationship Specialty Start Date End Date Kirsten Bateman MD [address] [place] [address] PCP - General 01/13/10 documented as of this encounter
--- OUTSIDE RECORDS SUMMARY | 2024-02-17 10:32 | XMS_ITS | Referral Summary ---
Author Organization [facility] Address [address] [place] [address] Care Team Providers Care Rfid Strategist Name Role Phone Kirsten Bateman MD Primary Care Provider [phone] Allergies Active Allergy Reactions Criticality Noted Date [...] of Treatment Not on file Care Teams Rfid Strategist Relationship Specialty Start Date End Date Kirsten Bateman MD [address] [place] [address] [facility] - General 01/13/10
--- OUTSIDE RECORDS SUMMARY | 2024-02-17 10:32 | XMS_ITS | Encounter Summary ---
Author Organization [facility] Address [facility] [place] [address] Care Team Providers Care Hvac Engineering Technician Name Role Phone Rosie Mathews MD Primary Care Provider [phone] Encounter Details Date Type Department Care Team (Late st Contact Info) Description 10/30/2023 [place] [address] Jose Lee MD [facility] [place] [address] Social History Tobacco Use Types Packs/Day Years Used Date Smoking Tobacco: Former Smokeless Tobacco: Never Alcohol Use Standard Drinks/Week Comments Not Currently 0 (1 standard drink = 0.6 oz pur e alcohol) [facility] Utilities Answer Date Recorded In the past 12 months has th e [employer], gas, oil, or water [employer] threatened to shut off services in your [...] AM EDT Office Visit Cardiology at [address] [address] Izaiah Meyer MD [facility] [place] [address] documented as of this encounter Visit Diagnoses Not on filedocumented in this encounter Additional Health Concerns Infection Onset Date Last Indicated Resolved Time Rule Out Respiratory 11/02/2023 11/02/2023 024 12:22 PM EDT Rule Out COVID-19 11/02/2023 11/02/2023 11/02/2023 12:22 PM EDT documented as of this encounter Care Teams Hvac Engineering Technician Relationship Specialty Start Date End Date Rosie Mathews MD [address] [place] [address] PCP - General Family Medicine 11/25/17 11/23/23 documented as of this encounter
--- OUTSIDE RECORDS SUMMARY | 2024-02-17 10:32 | XMS_ITS | Encounter Summary ---
Author Organization [facility] Address [facility] [place] [address] Care Team Providers Care Personal Banking Officer Name Role Phone Rosie Mathews MD Primary Care Provider [phone] Reason for Visit * Consultation (Routine) - Closed Specialty Diagnoses / Procedures Referred By John hunt Referred To Contact Audiology Diagnoses Hearing assessment and treatment options Karson John MD [address] [place] [address] [facility] [address] [place] [phone] Referral ID Status Reason Start Date Expiration Date V isits Requested Visits Authorized [id number] Closed Consult, Test & Treat Connection Center 11/22/2017 11/22/2018 1 1 Encounter Details Date Type Department Care Team (Latest Contact Info) Description 11/30/2017 3:15 PM EDT Office Visit Audiology at [address] [address] Georgette Onofre AUD [facility] [place] [address] Sensorineural hearing loss, bilateral; Bilateral [...] first 10-15 years. Ms. Goodrich obtained binaural [facility] in-the-ear hearingaids nine years ago in [place], [place]. She stated she continues to experience [...] tone audiogram. SNR loss is the increased grlxiu-uz-sseea ratio required by an individual to understand [...] not hesitate to contact this Section at [phone] if there are questions regarding this report or its recommendations. Romeo Becker [place] [id number] Attachment: audiogram CC: MD Karson Loo MD Laurmarco a Catherine Edvinjonatanjosue [facility] [address] [place] [phone] documented in this encounter Plan of Treatment Upcoming Encounters Date Type Department Care Team (Late st Contact Info) Description 03/29/2024 11:20 AM EDT Office Visit Cardiology at [address] [place] [address] Izaiah Meyer MD [facility] [place] [address] documented as of this encounter Procedures Procedure [...] tinnitus documented in this encounter Care Teams Personal Banking Officer Relationship Specialty Start Date End Date Rosie Mathews MD [address] [place] [address] PCP - General Family Medicine 11/25/17 11/23/23 documented as of this encounter
--- OUTSIDE RECORDS SUMMARY | 2024-02-17 10:32 | XMS_ITS | Encounter Summary ---
Author Organization [facility] Address [address] [place] [address] Care Team Providers Care A And P Technician Name Role Phone Kirsten Bateman MD Primary Care Provider [phone] Encounter Details Date Type Department Care Team (Late st Contact Info) Description 01/14/2010 Abstract Used for ABSTRACTING Data [phone] Kirsten Bateman MD [address] [place] [address] Social History Tobacco Use Types [...] (FATTY ACID BASE MISC) by [facility]Non-Drug; Combo Route) route. EPA CYANOCOBALAMIN (VITAMIN B-12 ORAL) Take by mouth. ASCORBIC ACID (VITAMIN C ORAL) Take by mouth. VITAMIN E ACETATE (VITAMIN E ORAL) Take by mouth. ASPIRIN ORAL Take by mouth. AMITRIPTYLINE HCL (AMITRIPTYLINE ORAL) Take by mouth. ATENOLOL ORAL Take by mouth. SIMVASTATIN ORAL Take by mouth. added in this encounter Care Teams A And P Technician Relationship Specialty Start Date End Date Kirsten Bateman MD [address] [place] [phone] PCP - General 01/13/10 documented as of this encounter
--- OUTSIDE RECORDS SUMMARY | 2024-02-17 10:32 | XMS_ITS | Encounter Summary ---
Author Organization Replaced By [facility] Address [facility] [place] [address] Care Team Providers Care Teacher Public Health Name Role Phone Rosie Mathews MD Primary Care Provider [phone] Encounter Details Date Type Department Care Team (Late st Contact Info) Description 10/30/2023 External Results Transfer Center [facility] [place] [address] Social History Tobacco Use Types Packs/Day Years Used Date Smoking Tobacco: Former Smokeless Tobacco: Never Alcohol Use Standard Drinks/Week Comments Not Currently 0 (1 standard drink = 0.6 oz pur e alcohol) [facility] Utilities Answer Date Recorded In the past 12 months has e [employer], gas, oil, or water [employer] threatened to shut off services in your [...] 11:20 AM EDT Office Visit Cardiology at [address] [address] Izaiah Meyer MD [facility] [place] [address] documented as of this encounter Procedures Procedure [...] on filedocumented in this encounter Care Teams Teacher Public Health Relationship Specialty Start Date End Date Rosie Mathews MD [address] [place] [address] PCP - General Family Medicine 11/25/17 11/23/23 documented as of this encounter
--- OUTSIDE RECORDS SUMMARY | 2024-02-17 10:32 | XMS_ITS | Encounter Summary ---
Author Organization [facility] Address [facility] [place] [address] Care Team Providers Care Stitching Department Supervisor Name Role Phone Rosie Mathews MD Primary Care Provider Reason for Visit * Reason Comments Skin Lesion * Consultation (Routine) - Closed Specialty Diagnoses / Procedures Referred By John hunt Referred To Contact Dermatology Diagnoses facial skin lesion Procedures pt would like to be seen PRADEPE Rosie Mathews MD [address] [place] [address] [facility] Dermatology [address] [place] [address] Referral ID Status Reason Start Date Expiration Date V isits Requested Visits Authorized [id number] Closed Consult, Test & Treat Connection Center 10/25/2017 10/25/2018 1 1 Encounter Details Date Type Department Care Team (Late st Contact Info) Description 11/25/2017 4:30 PM EDT Office Visit Dermatology at [facility] [address] [place] [address] Call, Radu Go MD [facility] DR SHERLYN [place] [address] Seborrheic keratosis; Fibrous papule of [...] by Radu Tom MD Resident in Dermatology [facility] Patient seen in conjunction with staff shearing supervisor: Terri Hale MD Section of Dermatology [facility] * Terri Hale MD - 11/25/2017 [...] 11:20 AM EDT Office Visit Cardiology at [address] [address] [facility] [place] [address] documented as of this encounter Visit Diagnoses Diagnosis Seborrheic keratosis Other seborrheic keratosis Fibrous papule of nose Benign neoplasm of skin of other and unspecified parts of face Skin tags, multiple acquired documented in this encounter Care Teams Stitching Department Supervisor Relationship Specialty Start Date End Date Rosie Mathews MD [address] [place] [address] PCP - General Family Medicine 11/25/17 11/23/23 documented as of this encounter
== END 2024-02-18 23:59 | disposition home or self-care (01) ==
LOC: CR 10:24
PROVIDERS: PCP Family Medicine; Visit Provider Internal Medicine Cardiovascular Disease
DX: Z95.5 Presence of coronary angioplasty implant and graft (principal); Z51.89 Encounter for other specified aftercare
CPT/HCPCS: S9472

== ENCOUNTER 2024-02-24 09:49 | Emergency (ER) | payer OTHER, SELFPAY ==
[2024-02-24] VITALS (35 sets, daily range): BP systolic 128–191; BP diastolic 51–142; PULSE 41–100; RESP 11–31; TEMP 36.5; O2SAT 90–98
--- NOTE | 2024-02-24 09:45 | RT.EKG_ITS ---
APPROVED REPORT Exam: Resting ECG Reason for Exam: chest pain Patient Location: E HR:47 bpm ECG Measurements Heart Rate 47 AXIS IN 236 P 20 QRSd 100 QRS -45 QT 475 T 21 QTc 421 Conclusion Sinus bradycardia...rate< 60 Prolonged IN interval...IN >230, V-rate 30- 49 Left anterior fascicular block...axis(240,-40), init forces inf LVH with secondary repolarization abnormality...multi-LVH criteria, abnrm ST-T Sinus bradycardia rate of 47 with interventricular conduction delay and a QRS of 100 ms and first-deg ree AV block with a IN interval of 236 ms. QTc within normal limits. Left axis deviation but no sig ns of LVH based on voltage criteria in aVL. Biphasic T waves in lead III. Left lateral chest wall T wave inversions. No ST segment abnormalities. No acute injury pattern. Compared to prior dated ea rlier this year inferior and left lateral chest wall T wave inversions are improved.
--- NOTE | 2024-02-24 09:56 | ED.GENADUL_ITS ---
Discharge Plan Disposition Patient Disposition: Home Discharge Details Clinical Impression: Chest pain, unspecified Primary Care Provider: Rosie Mathews ED Provider: Radu Giron Home Meds and New Rx's Prescriptions: Continued vitamin E 100 UNIT capsule 100 unit PO DAILY Patient Comments: Pt. takes 1000 IU QD. ascorbate calcium (vitamin C) 500 MG tablet 1 tab PO DAILY aspirin 81 MG tablet,chewable 1 tab PO DAILY vitamin B complex [B-Complex] 1 EACH tablet 1 tab PO DAILY clopidogrel 75 mg tablet 75 mg PO DAILY nitroglycerin 0.4 mg tablet, sublingual 0.4 mg sublingual Q5M losartan 50 mg tablet 50 mg PO DAILY Patient Comments: TAKE ONE TABLET BY MOUTH EVERY DAY oxybutynin chloride 5 mg tablet 5 mg PO DAILY Patient Comments: TAKE ONE TABLET BY MOUTH AT BEDTIME NEEDED atorvastatin 80 mg tablet 80 mg PO DAILY spironolactone 25 mg tablet 25 mg PO DAILY metoprolol succinate 25 mg tablet extended release 24 hr 25 mg PO DAILY Discharge Instructions Instructions: Troponin Test Additional Instructions: You are seen in the emergency department for your chest pain. Your blood work showed no sign of a heart attack. As we discussed if you develop worsening pain vomiting that does not stop or if you pass out please return to the emergency department. Otherwise please continue going to cardiac rehab continue taking your home medications please follow-up next week with your primary care provider. Discharge Data Discharge Date/Time-TO BE ENTERED AT DEPARTURE: 02/24/24 12:26 HPI General Date/Time Provider Initiated Documentation: 02/24/24 09:56 . HPI Narrative: MDM This is an overall very well-appearing normothermic and not tachycardic 83-year-old female with left-sided improving chest pain with history of coronary artery disease and hypertension concerning for possibility of ACS. Patient did receive stents earlier this year. Her ECG does not meet STEMI criteria nor occlusion AR criteria so we will defer thrombolysis. No pain or proportion to suggest necrotizing soft tissue infection. No trauma and equal breath sounds and no shortness of breath without pneumothorax. Not short of breath or tachycardic nor hypoxic so doubt PE. Not hypotensive nor dialysis patient so my suspicion is low for tamponade. No rash to chest to suggest zoster. No fevers nor cough to suggest pneumonia. Patient has not been vomiting to suggest increased risk for esophageal rupture. Patient does have an ascending aortic aneurysm but has not had any tearing quality to her pain so my suspicion is low for dissection so we will defer CT angiogram. 11:45 AM CBC lacks anemia thrombocytopenia leukocytosis. CKD but no JUAN. Repeat ECG showing sinus bradycardia PCP at a rate of 44. First-degree AV block int erventricular conduction delay. Persistent biphasic inferior T waves. Left chest wall T wave inversion similar to prior. Mild hyperglycemia but no anion gap normal bicarbonate?test not consistent with DKA. Patient had 2 troponin levels drawn that were both within normal limits and less than the 99th percentile. Patient on her chronic risk factors she certainly remains relatively high risk for major adverse cardiac events in the next month however her heart score is 5 making her appropriate for discharge with PCP follow-up for consideration of stress testing. We discussed return indications including any shortness of breath any falls any worsening chest pain or any episodes of syncope. She understood her return indications with discharged with empiric trial of expectant outpatient management. HEART SCORE Chest pain Diagnostic Protocol: [-History/Physical/Gestalt: Slightly Suspicious (0)] [- EKG: Nonspecific repolarization (+1)] [- AGE: 65 and older (+2)] [- RISK FACTORS: 3 or more risk factors and/or known CAD (+2)] - TOTAL SCORE: 5 - Risk Factors: DM, current or recent smoker, HTN, HLD, family hx of CAD, obesity Chronic conditions affecting the care of the patient: Coronary artery disease hypertension History obtained from an outside historian: N/A External record review: [facility] [place] EMR Diagnostic interpretations performed by me: Per my independent interpretation chest x-ray shows: Per my independent interpretation EKG shows: Sinus bradycardia rate of 47 with interventricular conduction delay and a QRS of 100 ms and first-degree AV block with a ND interval of 236 ms. QTc within normal limits. Left axis deviation but no signs of LVH based on voltage criteria in aVL. Biphasic T waves in lead III. Left lateral chest wall T wave inversions. No ST segment abnormalities. No acute injury pattern. Compared to prior dated earlier this year inferior and left lateral chest wall T wave inversions are improved. ]Medications: Aspirin nitro Social determinants of health affecting disposition: N/A Management discussed with: N/A Treatment/interventions considered: N/A Response to therapies provided: N/A HPI This is an 83-year-old female with history of hypertension and coronary artery status post stenting earlier this year arrived to the emergency department via private vehicle complaining of left-sided chest pain. Patient reports that she was getting ready to go to cardiac rehab but she felt nauseous with a dull aching left-sided chest pain. She has been in her usual state of health. She denies vomiting diaphoresis shortness of breath cough fevers and chills. No trauma. Denies routine tobacco, ethanol and illicits. Has been adherent with her home medications. Exam General: Well-appearing in no acute distress speaking in complete sentences. Head: Normocephalic, atraumatic. Eye: Extraocular eye movements intact. No conjunctival injection. No scleral icterus. Ear, nose, mouth, throat: Grossly normal inspection. Normal voice, handling secretions normally. Neck: Trachea midline. Cardiovascular: Well-perfused distal extremities. Slow rate and rhythm Respiratory: Nonlabored respiration. Clear lungs bilaterally Gastrointestinal: Nondistended abdomen. Musculoskeletal: No significant lower extremity pitting edema. Moving all 4 extremities spontaneously. Skin: Normal for age and race, grossly normal temperature and turgor. No acute rash. Neurologic: Alert and appropriate, no apparent acute deficits. Psychiatric: Mood and manner are appropriate. Grooming and personal hygiene are appropriate. Related Data Home Medications ?Medication ?Instructions ?Recorded ?Confirmed ascorbate calcium (vitamin C) 500 1 tab PO DAILY 11/25/14 02/24/24 mg tablet aspirin 81 mg chewable tablet 1 tab PO DAILY 11/25/14 02/24/24 vitamin B complex (B-Complex 1 tab PO DAILY 11/25/14 02/24/24 tablet) vitamin E 100 unit capsule 100 unit PO DAILY 11/25/14 02/24/24 losartan 50 mg tablet 50 mg PO DAILY 02/12/22 02/24/24 oxybutynin chloride 5 mg tablet 5 mg PO DAILY 02/12/22 02/24/24 clopidogrel 75 mg tablet 75 mg PO DAILY 11/18/23 02/24/24 nitroglycerin 0.4 mg sublingual 0.4 mg sublingual Q5M 11/18/23 02/24/24 tablet atorvastatin 80 mg tablet 80 mg PO DAILY 02/24/24 02/24/24 metoprolol succinate 25 mg 25 mg PO DAILY 02/24/24 02/24/24 tablet,extended release 24 hr spironolactone 25 mg tablet 25 mg PO DAILY 02/24/24 02/24/24 Allergies Allergy/AdvReac Type Severity Reaction Status Date / Time hydrocodone Allergy Intermediate Itching Unverified 02/24/24 10:01 oxycodone HCl (From Percocet) Allergy Intermediate Itching Unverified 02/24/24 10:01 prednisone Allergy Intermediate Swelling/Ed Unverified 02/24/24 10:01 acosta General BRADLEY: 3 Medical Decision Making Quality:SDOH Health Related Social Needs: Health related social needs details pt reports she has nt been sick in 2- years. reports once she was at [facility] [place] she felt she caught a cold. PFSH All Active Problems (Updated 02/24/24 @ 12:06 by Radu Giron MD) Chest pain, unspecified (Acute) Tachyarrhythmia (Chronic) Tinnitus, bilateral (Acute) Sensorineural hearing loss of both ears (Acute) Medical History (Updated 02/24/24 @ 12:06 by Radu Giron MD) Aortic arch aneurysm CAD (coronary artery disease), barrow coronary artery Social History Smoking/Tobacco Use Status: Former Tobacco Use Smoking risk assessment performed?: Yes Alcohol Intake: never Drug use: Never Substance use type: does not use Housing: apartment Do you feel safe at home: Yes Do you feel safe in your relationship?: Yes
[2024-02-24 10:25] LABS: Abs Immature Grans 0.01 10^3/uL (0.0-0.06); Absolute Basophil Count 0.03 10^3/uL (0.0-0.2); Absolute Eosinophil Count 0.27 10^3/uL (0.0-0.7); Absolute Lymphocyte Count 1.51 10^3/uL (1.2-3.4); Absolute Monocyte Count 0.56 10^3/uL (0.1-0.8); Absolute Neutrophil Count 3.15 10^3/uL (1.2-6.7); Basophils % 0.5 %; Eosinophils % 4.9 %; HCT 38.5 % (36.0-46.0); HGB 13.4 g/dL (11.2-15.7); Immature Grans % 0.2 %; Lymphocytes % 27.3 %; MCH 34.3 pg (27.0-33.0); MCHC 34.8 % (32.0-36.0); MCV 99 fL (80-95); MPV 11.2 fL (8.0-11.0); Monocytes % 10.1 %; Platelet Count 179 10^3/uL (130-400); RBC 3.91 10^6/uL (3.93-5.22); RDW 14.2 % (11.7-14.6); RDW-SD 51.5 fL; WBC 5.53 10^3/uL (4.4-10.8)
[2024-02-24] MEDS: Aspirin 81 MG CHEW 324 MG CH (10:27)
[2024-02-24] MEDS: nitroGLYcerin 0.4 MG TAB SL ×2 (10:38→11:03)
[2024-02-24 10:46] LABS: Anion Gap 7.7 mmol/L (3-11); BUN 14 mg/dL (7-18); CO2 28.3 mmol/L (21.0-32.0); CREATININE 1.1 mg/dL (0.55-1.02); Calcium 9.3 mg/dL (8.5-10.1); Chloride 104 mmol/L (98-107); Estimated GFR 49.55 (mL/min/1.73m2); Glucose 153 mg/dL (74-106); Potassium 3.7 mmol/L (3.5-5.1); Sodium 140 mmol/L (136-145); Troponin I 14 ng/L (4-51)
[2024-02-24] MEDS: Acetaminophen 500 MG TAB 1000 MG PO (10:59)
--- NOTE | 2024-02-24 11:15 | RT.EKG_ITS ---
APPROVED REPORT Exam: Resting ECG Reason for Exam: Patient Location: E HR:44 bpm ECG Measurements Heart Rate 44 AXIS KS 252 P 18 QRSd 100 QRS -46 QT 498 T 155 QTc 429 Conclusion Bradycardia with irregular rate...V-rate 35- 61, mean < 60 Prolonged KS interval...KS >230, V-rate 30- 49 Left anterior fascicular block...axis(240,-40), init forces inf LVH with secondary repolarization abnormality...multi-LVH criteria, abnrm ST-T Repeat ECG showing sinus bradycardia PCP at a rate of 44. First-degree AV block interventricular con duction delay. Persistent biphasic inferior T waves. Left chest wall T wave inversion similar to pr ior.
--- NOTE | 2024-02-24 11:35 | DI.RAD_ITS ---
Exam(s) XR PORTABLE CHEST AP EXAM: XR PORTABLE CHEST AP CLINICAL HISTORY: Chest pain TECHNIQUE: 2D digital imaging was performed of the chest. One image was obtained. An AP view was ob tained. COMPARISON: CR XR CHEST 2V PA LATERAL from 09/23/2023 FINDINGS: MEDIASTINUM: Normal. HEART: Normal. PULMONARY VASCULATURE: There is tortuosity of the thoracic aorta. LUNGS: Clear. PLEURAL SPACE: No pleural effusion or pneumothorax. BONE:Within normal limits for the patient's age. The patient has a total reverse right shoulder arthr oplasty. OTHER FINDINGS:Normal. IMPRESSION: No acute pulmonary findings. DATA REPOSITORY: RADIATION DOSE DELIVERED:
[2024-02-24 11:39] LABS: Troponin I 13 ng/L (4-51)
== END 2024-02-24 12:26 | disposition home or self-care (01) ==
PROVIDERS: Emergency Provider Emergency Medicine; PCP Family Medicine
DX: R07.9 Chest pain, unspecified (principal); R11.0 Nausea; I25.10 Atherosclerotic heart disease of native coronary artery without angina pectoris; R94.31 Abnormal electrocardiogram [ECG] [EKG]; R00.1 Bradycardia, unspecified; I44.4 Left anterior fascicular block; I10 Essential (primary) hypertension; Z95.5 Presence of coronary angioplasty implant and graft; Z79.82 Long term (current) use of aspirin; Z79.01 Long term (current) use of anticoagulants; Z87.891 Personal history of nicotine dependence
CPT/HCPCS: 36415; 80048; 93005; 99285; 71045; 84484; 85025; 93010; 99284

== ENCOUNTER 2024-02-24 19:50 | Emergency (ER) | payer OTHER, SELFPAY ==
[2024-02-24] VITALS (21 sets, daily range): BP systolic 143–181; BP diastolic 41–73; PULSE 45–102; RESP 17–29; TEMP 35.1; O2SAT 77–98
--- OUTSIDE RECORDS SUMMARY | 2024-02-24 19:53 | XMS_ITS | Clinical Summary ---
Author Organization [facility] Address [facility] [place] [address] Care Team Providers Care Ditch Digger Name Role Phone Masood Pierson MD Primary Care Provider [phone] Allergies Active Allergy Reactions Criticality Noted Date [...] Prox 60 Mid 80 3.5 x 15 [place] 3.5 x 15 [place] RCA Mid AoCTO. Collats from Cx 4.0 x 38 [place] NB: RCA initially intervened; Cx 2 days [...] Care Team Description 12/16/2023 Telephone Cardiology at [address] [phone] Izaiah Meyer MD 11/24/2023 10:40 AM EDT Office Visit Cardiology at [address] [phone] Izaiah Meyer MD ASCVD (arteriosclerotic [...] the past 12 months has th e [employer], gas, oil, or water [employer] threatened to shut off services in your [...] AM EDT Office Visit Cardiology at [address] [phone] Izaiah Meyer MD [facility] DR CARDIOLOGY [place], [place] [id number] Health Maintenance Due Date Last Done Comments Pneumoccocal Vaccine: 65+ (1 of 2 - PCV) 1945 Tdap adult 1958 Tetanus vaccine 1958 Zoster vaccine (1 of 2) 1989 Advance Directive 1994 Bone Density Scan 2004 Covid-19 Vaccine (1 - season) 2024 Influenza (Flu) vaccine (1 o f 1 [...] (Bezet) 444 ms MUSE SYSTEM Calculated P [place] 79 degrees MUSE SYSTEM Calculated R [place] -39 degrees MUSE SYSTEM Calculated T [place] -49 degrees MUSE SYSTEM INTERPRETATION Sinus bradycardia [...] Anterolateral leads Confirmed by MD Meyer Daniel ([id number]) on 12/10/2023 2:50:44 PM MUSE SYSTEM 11/24/2023 11:0 9 AM EDT 12/10/2023 2:50 PM EDT Unknown ECG ORDERABLES MUSE SYSTEM from Last 3 Months Advance Directives * Attempt Cardiopulmonary Resuscitation - Inpatient (Latest Code Status on File) Date Activated Date Inactivated Comments 10/30/2023 9:58 PM 11/03/2023 7:13 PM Question Answer Comments Code Status decision made by: Patient Care Teams Ditch Digger Relationship Specialty Start Date End Date Masood Pierson MD [address] [place] [address] PCP - General Family Medicine 11/24/23
--- OUTSIDE RECORDS SUMMARY | 2024-02-24 19:53 | XMS_ITS | Encounter Summary ---
Author Organization [facility] Address [facility] [place] [address] Care Team Providers Care Research And Development Technician Name Role Phone Masood Pierson MD Primary Care Provider [phone] Reason for Visit * Reason Comments Establish Care Coronary Artery Disease Encounter Details Date Type Department Care Team (Latest Contact Info) Description 11/24/2023 10:40 AM EDT Office Visit Cardiology at [address] [place] [address] Izaiah Meyer MD [facility] [place] [address] ASCVD (arteriosclerotic cardiovascular disease); Cardiomyopathy, ischemic; Ascending aorta dilatation; Hyperpiesia Social History Tobacco Use Types Packs/Day Years Used Date Smoking Tobacco: Former Smokeless Tobacco: Never Alcohol Use Standard Drinks/Week Comments Not Currently 0 (1 standard drink = 0.6 oz pur e alcohol) [facility] Utilities Answer Date Recorded In the past [...] 3.5 x 15 [place] 3.5 x 15 [place] RCA Mid AoCTO. Collats from Cx 4.0 [...] y.o. female. HPI: 83 f presents to [facility] cardiovascular care. She has a recent [...] rehab. [facility] SBP very well controlled at [...] AM EDT Office Visit Cardiology at [address] [place] [phone] Izaiah Meyer MD [facility] [place] [address] documented as of this encounter Visit Diagnoses Diagnosis ASCVD (arteriosclerotic cardiovascular disease) Unspecified cardiovascular disease Cardiomyopathy, ischemic Other specified forms of chronic ischemic heart disease Ascending aorta dilatation Thoracic aortic ectasia Hyperpiesia Unspecified essential hypertension documented in this encounter Care Teams Research And Development Technician Relationship Specialty Start Date End Date Masood Pierson MD [address] [place] [address] PCP - General Family Medicine 11/24/23 documented as of this encounter
--- OUTSIDE RECORDS SUMMARY | 2024-02-24 19:53 | XMS_ITS | Encounter Summary ---
Author Organization [facility] Address [facility] [place] [address] Care Team Providers Care Bowling Ball Patcher Name Role Phone Rosie Mathews MD Primary Care Provider [phone] Encounter Details Date Type Department Care Team (Late st Contact Info) Description 11/18/2023 External Results Administration [facility] [place] [address] Social History Tobacco Use Types Packs/Day Years Used Date Smoking Tobacco: Former Smokeless Tobacco: Never Alcohol Use Standard Drinks/Week Comments Not Currently 0 (1 standard drink = 0.6 oz pur e alcohol) [place] Utilities Answer Date Recorded In the past [...] AM EDT Office Visit Cardiology at [address] [phone] Izaiah Meyer MD [facility] [place] [address] documented as of this encounter Procedures Procedure Name Priority Date/Time Associated Diagnosis Comments ECG SCAN Routine 11/18/2023 4:50 PM EDT documented in this encounter Results * Scan Doc: ECG (11/18/2023 4:50 PM EDT) Historical Provider MEDIA MGR SCAN EX T ORDR/RSLT documented in this encounter Visit Diagnoses Not on filedocumented in this encounter Care Teams Bowling Ball Patcher Relationship Specialty Start Date End Date Rosie Mathews MD [address] [place] [address] PCP - General Family Medicine 11/25/17 11/23/23 documented as of this encounter
--- OUTSIDE RECORDS SUMMARY | 2024-02-24 19:53 | XMS_ITS | Encounter Summary ---
Author Organization [facility] Address [facility] [place] [address] Care Team Providers Care Oven Heater Name Role Phone Masood Pierson MD Primary Care Provider [phone] Encounter Details Date Type Department Care Team (Late st Contact Info) Description 12/16/2023 Telephone Cardiology at [address] [place] [address] Izaiah Meyer MD [facility] [place] [address] Social History Tobacco Use Types Packs/Day Years Used Date Smoking Tobacco: Former Smokeless Tobacco: Never Alcohol Use Standard Drinks/Week Comments Not Currently 0 (1 standard drink = 0.6 oz pur e alcohol) [facility] Utilities Answer Date Recorded In the past 12 months has [employer], gas, oil, or water [employer] threatened to shut off services in your [...] RN - 12/16/2023 11:25 AM EDT Denise, [facility] Cardiac emergency department nurse, called to report that at today's session [...] AM EDT Office Visit Cardiology at [address] [place] [address] Izaiah Meyer MD [facility] [place] [address] documented as of this encounter Visit Diagnoses Not on filedocumented in this encounter Care Teams Oven Heater Relationship Specialty Start Date End Date Masood Pierson MD [address] [place] [address] PCP - General Family Medicine 11/24/23 documented as of this encounter
--- OUTSIDE RECORDS SUMMARY | 2024-02-24 19:53 | XMS_ITS | Encounter Summary ---
Author Organization [facility] Address [facility] [place] [address] Care Team Providers Care Traffic Or System Dispatcher Name Role Phone Rosie Mathews MD Primary Care Provider [phone] Reason for Referral * Consultation (Routine) - Authorized Specialty Diagnoses / Procedures Referred By Contac t Referred To Contact Cardiology Diagnoses 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 Rosa Hugo MD [facility] [place] [address] Cardiac Rehab, [address] [place] [address] Referral ID Status Reason Start Date Expiration Date Visits Requested Visits Authorized [id number] Authorized Consult, Test & Treat Non PCP 11/03/2023 05/01/2024 36 36 * Home Health Care (Routine) - Authorized Specialty Diagnoses / Procedures Referred By Contac t Referred To Contact Diagnoses Unstable angina Rosa Hugo MD [facility] [place] [address] Referral ID Status Reason Start Date Expiration Date Visits Requested Visits Authorized [id number] Authorized Consult, Test & Treat 11/03/2023 05/01/2024 999 999 Reason for Visit * Auth/Cert (Routine) Specialty Diagnoses / Procedures Referred By John hunt Referred To Contact Diagnoses Unstable angina Chest pain NSTEMI Procedures CARDIAC CATHETERIZATION Rosa Dewey MD [facility] [place] [address] [facility] Referral ID Status Reason Start Date Expiration Date Visits Re quested Visits Authorized [id number] 1 1 Encounter Details Date Type Department Care Team (Latest Contact Info) Description 10/30/2023 5:11 PM EDT - 11/03/2023 5:13 PM EDT Hospital Encounter Heart and Vascular Unit Level 4 [place] [address] Rosa Dewey MD [facility] [place] [address] Jean Laboy MD [facility] [place] [address] Rosa Hugo MD [facility] [place] [address] 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; Tachycardia; Unstable angina Discharge Disposition: Home Social History Tobacco Use Types Packs/Day Years Used Date Smoking Tobacco: Former Smokeless Tobacco: Never Alcohol Use Standard Drinks/Week Comments Not Currently 0 (1 standard drink = 0.6 oz pur e alcohol) [facility] Utilities Answer Date Recorded In the past 12 months has e [employer], gas, oil, or water [employer] threatened to shut off services in [...] hypertension and hyperlipidemia who presented to [facility] as a transfer from [facility] as a possible STEMI alert with acute onset chest pain. The patient reports that her symptoms initially began on Tuesday when she was walking to [employer] and experienced bilateral arm heaviness while walking with no other symptoms. Then, this afternoon shereports developing bilateral achy shoulder pain and nonradiating substernal left-sided chest pressure that was 7/10 in severity after coming home from [facility]. The patient denies any associated fevers, chills, [...] on repeat, her TRU resolved. Cardiology at [facility] was consulted for transfer; the patient was loaded with aspirin 324 mg and ticagrelor 180 mg, started on a heparin drip, and given nitroglycerin with improvement in chest pain. Upon arrival to [facility], the patient was taken directly to the [facility]. Two lesions were discovered: one in the prox RCA (felt to almost be a CUTTER GRINDER OPERATOR but they were able to wire, balloon, [...] dose administered prior to arrival in the analytical lab analyst. Recommended anti-platelet/anti-thrombotic regimen: Continue aspirin [...] and low lung volumes. Findings similar to requisition approver radiograph from CT 10/30/2023. Pending Studies and [...] 10:40 AM Izaiah Meyer MD Cardiology at [place] Arrive at: [facility] [address] [phone] Future Orders Complete By Expires Referral to Cardiac Rehab [[id number] Custom] As directed Process Instructions: If no [...] Santos for admission to Home Health. [address] [facility] [address] (home) Date of : 1940 Inpatient DOCUMENTATION FOR VNA SERVICES (INCLUDING THOSE PATIENTS WITH MEDICARE COVERAGE REQUIRING HOME VNA SERVICES AND/OR HOSPICE SERVICES) PATIENT'S LOCATION: Adin Santos [address] [facility] [phone] (home) Cell: Telephone Information: Adult School Counselor's Name: self In discussion with the attending physician, it is certified that this patient is under their care and that they, or a Nurse Practitioner, Clinical Nurse specialist or Physician Fabrication Technician who is working directly with them, had [...] issues HOME HEALTH CARE AGENCY: [facility] [address] [place] [address] START OF CARE: within 24-48 hours of [...] Mathews MD / Dr. Masood Pierson [address] [place] [address] 11/09/23 1:55 PM arrival for 2:10 PM appointment Director Employment: Izaiah Meyer MD [address] [place] [id number] , 11/24/2023 10:40 AM Your Inpatient Medical Team at [facility] Name(s) of your inpatient provider(s): Attending physician: Rosa Hugo MD Resident physicians: Emile Robles MD; Elmer Tamez MD If you have non-emergent questions, prior to your follow-up visit call: Tuesday-Tuesday between the hours of 8AM-5PM please call the Cardiology Clinic [phone] to speak with a nurse. All other hours please call the Hospital Rn First Assistant [phone] and ask to speak to the political science chair on-call. Your Primary Care Provider Rosie Mathews MD [phone] For questions regarding this document or issues relating to this hospitalization on the Medical Service, please contact your inpatient physician through the [facility] Rn First Assistant . Issues afterhours and on weekends will be handled by the Director Employment staff on-call. Associated attestation - Rosa Hugo [...] MD / Dr. Masood Pierson [address] [place] [address] 11/09/23 1:55 PM arrival for 2:10 PM appointment Director Employment: Izaiah Meyer MD [address] [place] [address] , 11/24/2023 10:40 AM Your Inpatient Medical Team at [facility] Name(s) of your inpatient provider(s): Attending physician: Rosa Hugo MD Resident physicians: Emile Robles MD; Elmer Tamez MD If you have non-emergent questions, prior to your follow-up visit call: Tuesday-Tuesday between the hours of 8AM-5PM please call the Cardiology Clinic [phone] to speak with a nurse. All other hours please call the Hospital Rn First Assistant [phone] and ask to speak to the political science chair on-call. Your Primary Care Provider Rosie Mathews MD [phone] documented in this encounter Medications at Time [...] hypertension and hyperlipidemia who presented to [facility] as a transfer from [facility] [...] hypertension and hyperlipidemia who presented to [facility] as a transfer from [facility] [...] Resident on Cardiology Service Cardiology S1 (Pager [phone]) Note written in conjunction with Claudio Perla [facility] Medical Student, MS3 Associated attestation - [...] Nirmala Webb - 11/01/2023 11:25 AM EDT Embosser Operator Encounter Note Patient Name: Adin Santos : [id number] MR#: [id number] Admit Date: 10/30/2023 5:11 PM Hospital Day 2 days Narrative: Self initiated visit to patient for Spiritual support in a regular unit rounds. Assessment: Patient is in the bathroom at the time of this visit. Not a good time for Negative Stripper visit. Intervention and Outcome: An attempted visit [...] hypertension and hyperlipidemia who presented to [facility] as a transfer from [facility] [...] and low lung volumes. Findings similar to requisition approver radiograph from CT 10/30/2023. Scheduled Medications: [AUG [...] hypertension and hyperlipidemia who presented to [facility] as a transfer from [facility] [...] Resident on Cardiology Service Cardiology S1 (Pager [phone]) Note written in conjunction with Claudio Perla [facility] Medical Student, MS3 Associated attestation - [...] hypertension and hyperlipidemia who presented to [facility] as a transfer from [facility] as a possible STEMI alert with acute onset chest pain. Active Problems: Active Hospital Problems Diagnosis Unstable angina Resolved Hospital Problems No resolved problems to display. 24 hr events: - Cath'd yesterday with lesion in the proximal RCA (initially thought it was CUTTER GRINDER OPERATOR but they were ableto wire, balloon and [...] and low lung volumes. Findings similar to requisition approver radiograph from CT 10/30/2023. TTE (05/13): Interpretation [...] hypertension and hyperlipidemia who presented to [facility] as a transfer from [facility] [...] Resident on Cardiology Service Cardiology S1 (Pager [phone]) Note written in conjunction with Claudio Perla [facility] Medical Student, MS3 Associated attestation - [...] PCP: Rosie Mathews MD PCP phone number: [phone] Date of Admission: 10/30/2023 ( Hospital Day 0 days ) Attending:Rosa Cornejo MD ID: Adin Santos is a 83 y.o. female PMH significant for hypertension and hyperlipidemia who presented to [facility] as a transfer from [facility] as a possible STEMI alert with acute onset chest pain. The patient reports that her symptoms initially began on Tuesday when she was walking [place] and experienced bilateral arm heaviness while walking with no other symptoms. Then, this afternoon shereports developing bilateral achy shoulder pain and nonradiating substernal left-sided chest pressure that was 7/10 in severity after coming home from [facility]. The patient denies any associated fevers, chills, [...] on repeat, her TRU resolved. Cardiology at [facility] was consulted for transfer; the patient was loaded with aspirin 324 mg and ticagrelor 180 mg, started on a heparin drip, and given nitroglycerin with improvement in chest pain. Upon arrival to [facility], the patient was taken directly to the [facility]. 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 Findings similar to requisition approver radiograph from CT 10/30/2023. Assessment & Plan: Adin Santos is a 83 y.o. female PMH significant for hypertension and hyperlipidemia who presented to [facility] as a transfer from [facility] [...] information for follow-up Home Health & Hospice, [place] [address] [place] [address] TANESHA BOYCE confirmed with [facility] that they will see the patient within 24-48 hours of discharge for start of care. Transportation: family or friend will provide Wheelchair van/Ambulance? No Functional status prior to admission: Assistive Equipment Home Environment: Others in the home: alone. Current Living Arrangements: home/apartment/condo. Accessibility Concerns:1st floor apartment [place]; handicapped accessible. Current Functional Ability: Assistive Equipment DME used at home: cane - straight, grab bar - tub/shower, grab bar - toilet, raised toilet seat DME Needed at Discharge: N/A Patient is insured through: Primary Insurance: [employer] MANAGED MEDICARE Payor: [employer] MEDICARE / Plan: [employer] MANAGED MEDICARE PPO / Product Type: *No [...] the room. Electrolytes replaced, see MAR. label sewer sites remained C/D/I with baseline ecchymosis unchanged. Pt complained of back pain, lidocaine patch given. Right IV infiltrated during infusion, patient is marked with sharpie, IV removed. See flowsheet for I+O's and safety rounding. Patient is able to make needs known and call capps within reach. PLAN MOVING FORWARD: Monitor Tele, control BP, monitor analytical lab analyst sites, D/C Planning INDIVIDUALIZED FALL [...] RN - 11/02/2023 11:36 AM EDT Adin Sanots was seen today by Cardiac Rehabilitation for: [...] and above on RA. PT went to analytical lab analyst today. Left fem site oozed [...] MOVING FORWARD: Monitor Tele, control BP, monitor analytical lab analyst sites, D/C Planning INDIVIDUALIZED FALL [...] surrogate would be surrogate decision maker per [place] surrogate decision making law. (Only good for 180 days) Any patient receiving care in [place] must abide by [place] law. The hierarchy for surrogate decision making [...] (i) The agent with financial power of ip technology transactions attorney or a conservator appointed in accordance [...] Arrangements: home/apartment/condo. Accessibility Concerns:1st floor apartment [place]; handicapped accessible. In the last 12 months, was there a time when you were not able to pay the mortgage or rent on time?: No In the last 12 months, how many places have you lived?: 1 In the last 12 months, was there a time when you did not have a steady place to sleep or slept [facility])?: No In the past [...] toilet seat Home Address confirmed as: [address] [place] [id number] Social & Family Supports: All names listed below confirmed with patient as current and correct Extended Emergency Contact Information Primary Emergency Contact: Iris Downing Address: [address] [place], [place] [address] [place] [address] Mobile Relation: Child Secondary Emergency Contact: Karen More Address: [address] [facility] Mobile Relation: Child Current Care Provided by: self Provides Primary Care For: no one Caregiver if needed: child(emmanuel), adult Quality of Family relationships: involved, supportive Community Resources being provided currently: other (see comments) (receives [facility] services at home (1xweekly)) Behavioral Health [...] Insurance: N/A Prescription Coverage: Yes Preferred Pharmacy: [id number] - [place], [place] - [address] [facility] [address] [facility] [address] Status: Patient is a : No Primary Care Provider listed: Masood Pierson MD [phone] Patient/Caregiver Goals of Treatment: home when MR Potential Needs for Transition of Care: home health care Agency Referrals: Not Applicable I have met with the patient to: discuss discharge planning needs. provide the [facility], Office of Care Management letter from the Coroner'S Juror pertaining to rehab referrals. provide a letter describing our affiliations within the [facility] and educate about their right to choose where referrals are sent. provide a list of Home Health Agencies / Durable Medical Equipment vendors which serve their preferred geographic area. provided patient with [facility] Star Quality Rating handout. They have requested referrals to: [facility] [address] [place] [address] Note routed to a Hospital Orderly who will communicate referrals to facilities and [...] PO hydralazine added for BP control. label sewer sites remain C/D/I, ecchymosis unchanged th roughout shift. See flowsheet for I+O's and safety rounding. Patient is able to make needs known and call capps within reach. PLAN MOVING FORWARD: Monitor Tele, control CP and BP, NPO at MD for cath, monitor analytical lab analyst sites, D/C Planning INDIVIDUALIZED FALL [...] AM EDT Office Visit Cardiology at [address] [place] [address] Izaiah Meyer MD [facility] [place] [address] Scheduled Referrals Name Type Priority Associated Diagnoses [...] 3:46 AM EDT) Neutrophil % 63.3 % [facility] Neutrophil Absolute 5.28 1.70 - 6.10 x10(3)/mc L [facility] Lymph % 15.2 % [facility] Lymphocytes Abs 1.3 0.9 - 3.2 x10(3)/ L [facility] Monocyte % 16.9 % [facility] Monocyte Abs 1.4(H) 0.3 - 0.9 x10(3)/ L [facility] Eos % 3.7 % [facility] Eosinophils Abs 0.3 0.0 - 0.4 x10(3)/[facility] Basophil % 0.5 % [facility] Baso Absolute 0.0 0.0 - 0.1 x10(3)/ L [facility] Immature Gran % 0.40 % [facility] Comment: Immature granulocytes(IG's)percentage and absolute count will include metamyelocytes, myelocytes, and promyelocytes. Blood smears from CBCs yielding IG's will be scanned manually for concordance. If this scan disagrees with the automated IG or if promyelocytes are noted, a manual differential will be performed. Immature Gran Absolute 0.03 0.00 - 0.04 x10(3)/mc L [facility] Blood 11/03/2023 3:46 AM EDT 11/03/2023 4:11 AM EDT Narrative Resulting Agency Comment Spec In Lab Qamar Gallardo MD HEMATOLOGY ORDERABLE S [facility] [place] [address] * (ABNORMAL) Hemogram (11/03/2023 3:46 AM EDT) White Blood Cell 8.3 4.0 - 9.5 x10(3)/mc L [facility] Red Blood Cell 3.77(L) 4.00 - 5.21 x10(6)/mc L [facility] Hemoglobin 13.1 11.7 - 15.5 g/dL [facility] Hematocrit 38.0 35.7 - 45.8 % [facility] Mean Cell Volume 100.8(H) 82.6 - 94.4 fL [facility] Mean Cell Hemoglobin 34.7(H) 27.1 - 32.0 pg [facility] Mean Cell Hemoglobin Concentration 34.5 31.7 - 35.0 g/dL [facility] Platelet 181 145 - 357 x10(3)/[facility] RDW Standard Deviation 54.7(H) 37.0 - 46.0 [facility] RDW coefficient of variation 14.6(H) 11.5 - 14.1 % [facility] Mean Platelet Volume 11.2 7.6 - 12.9 [facility] NRBC% auto 0.0 % [facility] NRBC Absolute 0.000 0.000 - 0.000 x10(3)/ L [facility] Blood 11/03/2023 3:46 AM EDT 11/03/2023 4:11 AM EDT Narrative Resulting Agency Comment Spec In Lab Qamar Gallardo MD HEMATOLOGY ORDERABLE S [facility] [place] [address] * Phosphorus (11/03/2023 3:46 AM EDT) Phosphorus 3.2 2.5 - 4.5 mg/dL [facility] Comment:result rechecked-KS Blood 11/03/2023 3:46 AM EDT 11/03/2023 4:11 AM EDT Narrative Resulting Agency Comment Spec In Lab Rsoa Cornejo MD CHEMISTRY ORDERABLE S [facility] [place] [address] * Magnesium (11/03/2023 3:46 AM EDT) Magnesium 0.90 0.69 - 1.07 mmol/L [facility] Blood 11/03/2023 3:46 AM EDT 11/03/2023 4:11 AM EDT Narrative Resulting Agency Comment Spec In Lab Rosa Cornejo MD CHEMISTRY ORDERABLE S Performing Organization Address City/[facility]/ZIP Co de Phone Number [facility] [place] [address] * (ABNORMAL) Basic Metabolic Panel (non-fasting) (11/03/2023 3:46 AM EDT) Glucose 105 65 - 199 mg/dL [facility] Comment:Diabetes: >=200 mg/d L plus symptoms Blood Urea Nitrogen 13 8 - 18 mg/dL [facility] Creatinine 0.83 0.70 - 1.20 mg/dL [facility] Sodium 139 135 - 145 mmol/L [facility] Potassium 4.0 3.5 - 5.0 mmol/L [facility] Comment: Please note: ??Patients with WBC >100,000 may have falsely elevated Potassium levels. ??For accurate Potassium quantification in these patients send serum separator tube (gold top) for subsequent determinations. ??Contact the Clinical Chemistry Laboratory if there are any questions. Chloride 108(H) 98 - 107 mmol/L [facility] Carbon Dioxide 19(L) 22 - 31 mmol/L [facility] Anion Gap 12 5 - 15 mmol/L [facility] Calcium 8.2(L) 8.5 - 10.5 mg/dL [facility] Est Glomerular Filtration Rate 69 >=60 mL/min/1. 73 m?? [facility] Comment: This patient's estimated GFR [...] Lab Rosa Cornejo MD CHEMISTRY ORDERABLE S [facility] [place] [id number] * EKG 12 Lead (11/02/2023 12:44 PM EDT) Ventricular rate 83 BPM MUSE SYSTEM Atrial Rate 83 BPM MUSE SYSTEM P-R Interval 216 ms MUSE SYSTEM QRS Duration 90 ms MUSE SYSTEM Q-T Interval 384 ms MUSE SYSTEM QTC Calculated (Bezet) 451 ms MUSE SYSTEM Calculated P [place] 92 degrees MUSE SYSTEM Calculated R [place] -51 degrees MUSE SYSTEM Calculated T [place] -33 degrees MUSE SYSTEM INTERPRETATION Sinus rhythm [...] specimen volume Bacteria, Urine Many(A) None /HPF [facility] Squamous Epithelial Cells Raw Data, Urine 10(H) <=4 /HPF [facility] Hyaline Casts, Urine 2 0 - 2 /LPF [facility] Comment: Interpret results with caution, microscopic results are from suboptimal specimen volume Clean Catch Urine 11/02/2023 11:40 AM EDT 11/02/2023 12:05 PM EDT Narrative Resulting Agency Comment Spec In Lab Elmer Tamez MD URINE ORDERABLES Performing Organization Address City/[facility] Co de Phone Number [facility] [place] [address] * (ABNORMAL) Urinalysis with reflex Culture (11/02/2023 11:40 AM EDT) Glucose, Urine Dipstick Negative Negative mg/dL [facility] Protein, Urine Dipstick 30(A) Negative mg/dL [facility] Bilirubin, Urine Dipstick Negative Negative mg/dL [facility] Comment: Clinical correlation required for positive Urine Bilirubin results as false positive may occur with some drugs and drug related products. If a false positive is suspected a serum total bilirubin should be considered if clinically indicated. Urobilinogen, Urine Dipstick Normal Normal mg/dL [facility] pH, Urn (dipstick) 5.5 5.0 - 8.0 [facility] Blood, Urine Dipstick Negative Negative mg/dL [facility] Ketone, Urine Dipstick Trace(A) Negative mg/dL [facility] Nitrite, Urine Dipstick Positive(A) Negative [facility] Leukocytes, Urine Dipstick Small(A) Negative [facility] Appearance, Urine Dipstick Cloudy(A) Clear [facility] Specific [place] Urine Automated >=1.030(A) 1.005 - 1.030 [facility] Color, Urine Dipstick Dark Yellow Yellow [facility] Reflex to Culture Yes [facility] Clean Catch Urine 11/02/2023 11:40 AM EDT 11/02/2023 12:04 PM EDT Narrative Resulting Agency Comment Spec In Lab Rosa Hugo MD URINE ORDERABLES Performing Organization Address City/State/[facility] Co de Phone Number [facility] [place] [address] * Respiratory Panel PCR (11/02/2023 10:15 AM EDT) Respiratory Panel Source KILNMAN Swab [facility] Respiratory Panel PCR Negative Negative [facility] Comment: Respiratory Panels are performed on the [employer], using multiplexed PCR nucleic acid detection. ??Negative results do not preclude respiratory infection and should not be used as the sole basis for diagnosis, treatment or other management decisions. Adenovirus Not Detected Not Detected [facility] Coronavirus HKU1 Not Detected Not Detected [facility] Coronavirus NL63 Not Detected Not Detected [facility] Coronavirus 229E Not Detected Not Detected [facility] Coronavirus OC43 Not Detected Not Detected [facility] SARS-CoV-2 Not Detected Not Detected [facility] Comment: Testing for SARS-CoV-2 (Severe acute respiratory syndrome coronavirus 2) to aid in the diagnosis of COVID-19 is performed using the Bio[employer] Respiratory Panel 2.1 ([employer]) as authorized by the FDA issued Emergency Use Authorization (EUA). This panel also tests for multiple other viral and bacterial pathogens. This assay is intended for In-vitro Diagnostic (IVD) use with nasopharyngeal swabs in viral transport media. The assay is performed based on the instructions for use and additional guidance provided by the FDA. Testing is performed in laboratories within the [facility], each of which is certified under [...] fact sheets at the following FDA website: https://www.fda.gov/medical-devices/lzapgropjeh-eefizvz-7182-ytbus-25-rvbvuumfe- use-a owkdioccsfxmk-hwxjojv-rtlnutx/egadw-beuxsezumen-eney Human Metapneumovirus Not Detected Not Detected [facility] Human Rhinovirus/Enterov irus Not Detected Not Detected [facility] Influenza A Not Detected Not Detected [facility] Influenza B Not Detected Not Detected [facility] Parainfluenza 1 Not Detected Not Detected [facility] Parainfluenza 2 Not Detected Not Detected [facility] Parainfluenza 3 Not Detected Not Detected [facility] Parainfluenza 4 Not Detected Not Detected [facility] Respiratory Syncytial Virus Not Detected Not Detected [facility] Chlamydophila pneumoniae Not Detected Not Detected [facility] Mycoplasma pneumoniae Not Detected Not Detected [facility] Nasopharyngeal Swab 11/02/19 10:15 AM EDT 11/02/2023 10:49 AM EDT Narrative Resulting Agency Comment Spec In Lab Rosa Hugo MD MICROBIOLOGY - GEN ERAL ORDERABLES [facility] [place] [address] * XR Chest One View (11/02/2023 2:51 AM EDT) WORKSTATION ID [id number] RAD Anatomical Region Laterality Modality Chest N/A [...] care that requested your imaging first. ? Narrative [...] child care that requested your imaging first. Rosa Hugo MD IMG DX ORDERABLES * (ABNORMAL) Differential, Automated (11/02/2023 12:35 AM EDT) Neutrophil % 76.5 % [facility] Neutrophil Absolute 7.69(H) 1.70 - 6.10 x10(3)/mc L [facility] Lymph % 8.3 % [facility] Lymphocytes Abs 0.8(L) 0.9 - 3.2 x10(3)/mc L [facility] Monocyte % 12.9 % [facility] Monocyte Abs 1.3(H) 0.3 - 0.9 x10(3)/mc L [facility] Eos % 1.4 % [facility] Eosinophils Abs 0.1 0.0 - 0.4 x10(3)/mc L [facility] Basophil % 0.4 % [facility] Baso Absolute 0.0 0.0 - 0.1 x10(3)/mc L [facility] Immature Gran % 0.50 % [facility] Comment: Immature granulocytes(IG's)percentage and absolute count will include metamyelocytes, myelocytes, and promyelocytes. Blood smears from CBCs yielding IG's will be scanned manually for concordance. If this scan disagrees with the automated IG or if promyelocytes are noted, a manual differential will be performed. Immature Gran Absolute 0.05(H) 0.00 - 0.04 x10(3)/mc L [facility] Blood 11/02/2023 12:3 5 AM EDT 11/02/2023 12:43 AM EDT Narrative Resulting Agency Comment Spec In Lab Qamar Gallardo MD HEMATOLOGY ORDERABLE S [facility] [place] [address] * (ABNORMAL) Hemogram (11/02/2023 12:35 AM EDT) White Blood Cell 10.0(H) 4.0 - 9.5 x10(3)/mc L [facility] Red Blood Cell 4.06 4.00 - 5.21 x10(6)/mc L [facility] Hemoglobin 13.8 11.7 - 15.5 g/dL [facility] Hematocrit 39.8 35.7 - 45.8 % [facility] Mean Cell Volume 98.0(H) 82.6 - 94.4 fL [facility] Mean Cell Hemoglobin 34.0(H) 27.1 - 32.0 pg [facility] Mean Cell Hemoglobin Concentration 34.7 31.7 - 35.0 g/dL [facility] Platelet 198 145 - 357 x10(3)/mc L [facility] RDW Standard Deviation 52.1(H) 37.0 - 46.0 fL [facility] RDW coefficient of variation 14.3(H) 11.5 - 14.1 % [facility] Mean Platelet Volume 11.4 7.6 - 12.9 [facility] NRBC% auto 0.0 % [facility] NRBC Absolute 0.000 0.000 - 0.000 x10(3)/ L [facility] Blood 11/02/2023 12:3 5 AM EDT 11/02/2023 12:43 AM EDT Narrative Resulting Agency Comment Spec In Lab Qamar Gallardo MD HEMATOLOGY ORDERABLE S [facility] [place] [address] * (ABNORMAL) Phosphorus (11/02/2023 12:35 AM EDT) Phosphorus 1.6(L) 2.5 - 4.5 mg/dL [facility] Blood 11/02/2023 12:3 5 AM EDT 11/02/2023 12:43 AM EDT Narrative Resulting Agency Comment Spec In Lab Rosa Cornejo MD CHEMISTRY ORDERABLE S [facility] [place] [address] * Magnesium (11/02/2023 12:35 AM EDT) Pathologist [facility] Magnesium 0.87 0.69 - 1.07 mmol/L [facility] Blood 11/02/2023 12:3 5 AM EDT 11/02/2023 12:43 AM EDT Narrative Resulting Agency Comment Spec In Lab Rosa Cornejo MD CHEMISTRY ORDERABLE S Performing Organization Address City/[facility]/ZIP Co de Phone Number [facility] [place] [address] * Basic Metabolic Panel (non-fasting) (11/02/2023 12:35 AM EDT) Glucose 125 65 - 199 mg/dL [facility] Comment:Diabetes: >=200 mg/d L plus symptoms Blood Urea Nitrogen 9 8 - 18 mg/dL [facility] Creatinine 0.83 0.70 - 1.20 mg/dL [facility] Sodium 136 135 - 145 mmol/L [facility] Potassium 3.6 3.5 - 5.0 mmol/L [facility] Comment: Please note: ??Patients with WBC >100,000 may have falsely elevated Potassium levels. ??For accurate Potassium quantification in these patients send serum separator tube (gold top) for subsequent determinations. ??Contact the Clinical Chemistry Laboratory if there are any questions. Chloride 102 98 - 107 mmol/L [facility] Carbon Dioxide 25 22 - 31 mmol/L [facility] Anion Gap 9 5 - 15 mmol/L [facility] Calcium 9.0 8.5 - 10.5 mg/dL [facility] Est Glomerular Filtration Rate 69 >=60 mL/min/1. 73 m?? [facility] Comment: This patient's estimated GFR [...] Lab Rosa Cornejo MD CHEMISTRY ORDERABLE S [facility] [place] [address] * Blood culture (11/02/2023 12:35 AM EDT) Blood Culture No growth at 5 days. [facility] Blood 11/02/2023 12:3 5 AM EDT 11/02/2023 1:55 AM EDT Comment:#2 site ukn Narrative Resulting Agency Comment Spec In Lab Rosa Hugo MD MICROBIOLOGY - BLO OD ORDERABLES [facility] [place] [address] * Blood culture (11/02/2023 12:15 AM EDT) Blood Culture No growth at 5 days. [facility] Blood 11/02/2023 12:1 5 AM EDT 11/02/2023 1:54 AM EDT Comment:#1site unk Narrative Resulting Agency Comment Spec In Lab Rosa Hugo MD MICROBIOLOGY - BLO OD ORDERABLES Performing Organization Address City/[facility]/ZIP Co de Phone Number [facility] [place] [address] * EKG 12 Lead (11/01/2023 10:10 PM EDT) Ventricular rate 139 BPM MUSE SYSTEM Atrial Rate 139 BPM MUSE SYSTEM P-R Interval 168 ms MUSE SYSTEM QRS Duration 84 ms MUSE SYSTEM Q-T Interval 286 ms MUSE SYSTEM QTC Calculated (Bezet) 435 ms MUSE SYSTEM Calculated R [place] -59 degrees MUSE SYSTEM Calculated T [place] -27 degrees MUSE SYSTEM INTERPRETATION Mid-RP tachycardia, [...] interpretation Confirmed by fellow MD Andrés, Enriqueta ([id number]) on 11/04/2023 7:57:50 AM Confirmed by MD Gerardo, Shameka ([id number]) on 11/04/2023 4:32:03 PM MUSE SYSTEM 11/01/2023 10:1 0 PM EDT 11/04/2023 4:32 PM EDT Rosa Cornejo MD ECG ORDERABLES Performing Organization Address City/[facility]/ZIP Co de Phone Number MUSE SYSTEM * (ABNORMAL) Hemogram (11/01/2023 10:06 PM EDT) White Blood Cell 10.4(H) 4.0 - 9.5 x10(3)/ L [facility] Red Blood Cell 4.11 4.00 - 5.21 x10(6)/ L [facility] Hemoglobin 14.0 11.7 - 15.5 g/dL [facility] Hematocrit 41.1 35.7 - 45.8 % [facility] Mean Cell Volume 100.0(H) 82.6 - 94.4 fL [facility] Mean Cell Hemoglobin 34.1(H) 27.1 - 32.0 pg [facility] Mean Cell Hemoglobin Concentration 34.1 31.7 - 35.0 g/dL [facility] Platelet 197 145 - 357 x10(3)/[facility] RDW Standard Deviation 54.0(H) 37.0 - 46.0 fL [facility] RDW coefficient of variation 14.6(H) 11.5 - 14.1 % [facility] Mean Platelet Volume 11.2 7.6 - 12.9 fL [facility] NRBC% auto 0.0 % [facility] NRBC Absolute 0.000 0.000 - 0.000 x10(3)/[facility] Blood 11/01/2023 10:0 6 PM EDT 11/01/2023 10:22 PM EDT Narrative Resulting Agency Comment Spec In Lab Rosa Hugo MD HEMATOLOGY ORDERAB LES [facility] [place] [address] * POCT Glucose (11/01/2023 5:59 PM EDT) Glucose, POC 104 65 - 199 mg/dL [facility] Comment: Supplemental ranges: <140 mg/dL before meals <180 mg/dL all other times of the day Blood 11/01/2023 5:59 PM EDT 11/01/2023 5:59 PM EDT Rosa Hugo MD POINT OF CARE TEST ORDERABLES [facility] [place] [address] * POCT Glucose (11/01/2023 5:35 PM EDT) Glucose, POC 85 65 - 199 mg/dL [facility] Comment: Supplemental ranges: <140 mg/dL before meals <180 mg/dL all other times of the day Blood 11/01/2023 5:35 PM EDT 11/01/2023 5:35 PM EDT Rosa Hugo MD POINT OF CARE TEST ORDERABLES Performing Organization Address City/[facility] Co de Phone Number [facility] [place] [address] * EKG 12 Lead (11/01/2023 3:22 PM EDT) Ventricular rate 59 BPM MUSE SYSTEM Atrial Rate 59 BPM MUSE SYSTEM P-R Interval 220 ms MUSE SYSTEM QRS Duration 94 ms MUSE SYSTEM Q-T Interval 428 ms MUSE SYSTEM QTC Calculated (Bezet) 423 ms MUSE SYSTEM Calculated P [place] 76 degrees MUSE SYSTEM Calculated R [place] -50 degrees MUSE SYSTEM Calculated T [place] -59 degrees MUSE SYSTEM INTERPRETATION Sinus bradycardia with sinus arrhythmia with 1st degree A-V block Left anterior fascicular block Moderate voltage criteria for LVH, may be normal variant ( R in aVL , [place] product ) Cannot rule out Inferior infarct [...] PM EDT ?[facility] ? Cardiac Catheterization/Intervention Report ? Patient Name: Joleen, Adin Catherine. ? Procedure Date: 11/01/2023 ? A #: [id number] ? Primary Physician: Rosa Dewey I ? Case #: [id number] ? File Name: [id number] ? Catheterization Order Number: [id number] ? [facility] ? Final Report [place], [place] ? Patient Name: ? Adin Townsendjosue ?ID#: ?[id number] ? : ?1940 ? Procedure Date: ? [...] procedure was Urgent. The indication for ?the analytical lab analyst visit is ACS greater than [...] premounted ? 3.50 x 15 mm Andrea Hatillo (RADHA) was deployed with a maximum ? [...] ? A premounted 3.50 x 15 mm Stonewall Hatillo (RADHA) was deployed ? with a maximum [...] dose administered prior to arrival in the analytical lab analyst. ?Recommended anti-platelet/anti-thrombotic regimen: ?Continue aspirin 81 mg daily for indefinitely. ?Continue clopidogrel 75 mg daily for 12 months then stop. ?These recommendations are made at the time of the intervention. Patient ?and provider preferences or a changing clinical situation may require ?modification of this regimen. Consult [facility] Interventional Cardiology for ?questions. ?The 1 year [...] - 12/12/2023 [facility] Cardiac Catheterization/Intervention Report Patient Name: Adin Santos Procedure Date: 11/01/2023 A #: [id number] Primary Physician: Rosa Dewey I Case #: [id number] File Name: [id number] Catheterization Order Number: [id number] [facility] FinalReport [place], [place] Patient Name: Adin Santos ID#:[id number] :1940 Procedure Date: November 01, 2023 Case [...] diagnostic procedure was Urgent. The indicationfor the analytical lab analyst visit is ACS greater than [...] 14 atmospheres. Apremounted 3.50 x 15 mm Stonewall Hatillo (RADHA) was deployed with amaximum inflation pressure [...] The lesion was predilated with a 3.00mm [id number] MM balloon with a maximum inflation pressure of 14atmospheres. A premounted 3.50 x 15 mm Andrea Hatillo (RADHA) wasdeployed with a maximum inflation pressure [...] dose administered prior to arrival in the analytical lab analyst. Recommended anti-platelet/anti-thrombotic regimen: Continue aspirin 81 mg daily for indefinitely. Continue clopidogrel 75 mg daily for 12 months then stop. These recommendations are made at the time of the intervention.Patient and provider preferences or a changing clinical situation mayrequire modification of this regimen. Consult [facility] Interventional Cardiologyfor questions. The 1 year bleeding [...] * POCT Glucose (11/01/2023 7:06 AM EDT) [facility] Glucose, POC 93 65 - 199 mg/dL [facility] Comment: Supplemental ranges: <140 mg/dL before meals <180 mg/dL all other times of the day Blood 11/01/2023 7:06 AM EDT 11/01/2023 7:06 AM EDT Jean Laboy MD POINT OF CARE TEST O RDERABLES [facility] [place] [address] * (ABNORMAL) Differential, Automated (11/01/2023 3:09 AM EDT) [facility] Neutrophil % 63.9 % [facility] Neutrophil Absolute 5.54 1.70 - 6.10 x10(3)/mc L [facility] Lymph % 20.0 % [facility] Lymphocytes Abs 1.7 0.9 - 3.2 x10(3)/mc L [facility] Monocyte % 11.9 % [facility] Monocyte Abs 1.0(H) 0.3 - 0.9 x10(3)/mc L [facility] Eos % 3.2 % [facility] Eosinophils Abs 0.3 0.0 - 0.4 x10(3)/mc L [facility] Basophil % 0.5 % [facility] Baso Absolute 0.0 0.0 - 0.1 x10(3)/mc L [facility] Immature Gran % 0.50 % [facility] Comment: Immature granulocytes(IG's)percentage and absolute count will include metamyelocytes, myelocytes, and promyelocytes. Blood smears from CBCs yielding IG's will be scanned manually for concordance. If this scan disagrees with the automated IG or if promyelocytes are noted, a manual differential will be performed. Immature Gran Absolute 0.04 0.00 - 0.04 x10(3)/ L [facility] Blood 11/01/2023 3:09 AM EDT 11/01/2023 3:29 AM EDT Narrative Resulting Agency Comment Spec In Lab Qamar Gallardo MD HEMATOLOGY ORDERABLE S Performing Organization Address City/State/[facility] Co de Phone Number [facility] [place] [address] * (ABNORMAL) Hemogram (11/01/2023 3:09 AM EDT) White Blood Cell 8.7 4.0 - 9.5 x10(3)/ L [facility] Red Blood Cell 3.72(L) 4.00 - 5.21 x10(6)/mc L [facility] Hemoglobin 12.5 11.7 - 15.5 g/dL [facility] Hematocrit 36.8 35.7 - 45.8 % [facility] Mean Cell Volume 98.9(H) 82.6 - 94.4 fL [facility] Mean Cell Hemoglobin 33.6(H) 27.1 - 32.0 pg [facility] Mean Cell Hemoglobin Concentration 34.0 31.7 - 35.0 g/dL [facility] Platelet 184 145 - 357 x10(3)/ L [facility] RDW Standard Deviation 53.5(H) 37.0 - 46.0 fL [facility] RDW coefficient of variation 14.6(H) 11.5 - 14.1 % [facility] Mean Platelet Volume 11.3 7.6 - 12.9 fL [facility] NRBC% auto 0.0 % [facility] NRBC Absolute 0.000 0.000 - 0.000 x10(3)/mc L [facility] Blood 11/01/2023 3:09 AM EDT 11/01/2023 3:29 AM EDT Narrative Resulting Agency Comment Spec In Lab Qamar Gallardo MD HEMATOLOGY ORDERABLE S Performing Organization Address City/[facility]/ZIP Co de Phone Number [facility] [place] [address] * Phosphorus (11/01/2023 3:09 AM EDT) Phosphorus 2.5 2.5 - 4.5 mg/dL [facility] Blood 11/01/2023 3:09 AM EDT 11/01/2023 3:29 AM EDT Narrative Resulting Agency Comment Spec In Lab Rosa Cornejo MD CHEMISTRY ORDERABLE S Performing Organization Address City/[facility]/ZIP Co de Phone Number [facility] [place] [address] * Magnesium (11/01/2023 3:09 AM EDT) Magnesium 0.82 0.69 - 1.07 mmol/L [facility] Blood 11/01/2023 3:09 AM EDT 11/01/2023 3:29 AM EDT Narrative Resulting Agency Comment Spec In Lab Rosa Cornejo MD CHEMISTRY ORDERABLE S Performing Organization Address City/[facility]/ZIP Co de Phone Number [facility] [place] [address] * (ABNORMAL) Basic Metabolic Panel (non-fasting) (11/01/2023 3:09 AM EDT) Glucose 100 65 - 199 mg/dL [facility] Comment:Diabetes: >=200 mg/d L plus symptoms Blood Urea Nitrogen 14 8 - 18 mg/dL [facility] Creatinine 0.83 0.70 - 1.20 mg/dL [facility] Sodium 137 135 - 145 mmol/L [facility] Potassium 3.4(L) 3.5 - 5.0 mmol/L [facility] Comment: Please note: ??Patients with WBC >100,000 may have falsely elevated Potassium levels. ??For accurate Potassium quantification in these patients send serum separator tube (gold top) for subsequent determinations. ??Contact the Clinical Chemistry Laboratory if there are any questions. Chloride 105 98 - 107 mmol/L [facility] Carbon Dioxide 24 22 - 31 mmol/L [facility] Anion Gap 8 5 - 15 mmol/L [facility] Calcium 8.6 8.5 - 10.5 mg/dL [facility] Est Glomerular Filtration Rate 69 >=60 mL/min/1. 73 m?? [facility] Comment: This patient's estimated GFR [...] Lab Rosa Cornejo MD CHEMISTRY ORDERABLE S [facility] [place] [address] * (ABNORMAL) Troponin (10/31/2023 2:46 PM EDT) Troponin-T, High Sensitivity 544(H) <=14 ng/L [facility] Comment: This patient's troponin T [...] troponin value can be found in the [facility] Test Catalog Troponin - [facility] Catalog Reference: Fourth Lily Definition of Myocardial Infarction. Journal of the [place] [employer] 2018;72:1286-2774 Blood 10/31/2023 2:46 PM EDT 10/31/2023 2:55 PM EDT Narrative Resulting Agency Comment Spec In Lab Jean Laboy MD CHEMISTRY ORDERABLES [facility] [place] [address] * EKG 12 Lead (10/31/2023 1:07 PM EDT) Ventricular rate 54 BPM MUSE SYSTEM Atrial Rate 54 BPM MUSE SYSTEM P-R Interval 218 ms MUSE SYSTEM QRS Duration 92 ms MUSE SYSTEM Q-T Interval 540 ms MUSE SYSTEM QTC Calculated (Bezet) 512 ms MUSE SYSTEM Calculated P [place] 85 degrees MUSE SYSTEM Calculated R [place] -44 degrees MUSE SYSTEM Calculated T [place] -69 degrees MUSE SYSTEM INTERPRETATION Sinus bradycardia [...] EDT) Troponin-T, High Sensitivity 580(H) <=14 ng/L [facility] Comment: This patient's troponin T [...] troponin value can be found in the [facility] Test Catalog Troponin - [facility] Test Catalog Reference: Fourth Lily Definition of Myocardial Infarction. Journal of the [place] [employer] 2018;72:6891-9365 Blood 10/31/2023 11:3 7 AM EDT 10/31/2023 11:50 AM EDT Narrative Resulting Agency Comment Spec In Lab Rosa Cornejo MD CHEMISTRY ORDERABLE S Performing Organization Address [facility]/State/ZIP Co de Phone Number [facility] [place] [address] * ECHO COMPLETE (10/31/2023 8:52 AM EDT) Anatomical Region Laterality Modality Cardiac Other 10/31/2023 7:57 AM EDT Narrative 10/31/2023 9:45 AM EDT [address] [place] [address] ? Echocardiogram Report Name: ADIN SANTOS ? Study Date: 10/31/2023 07:57 AMBP: 106/76 mmHg ? Patient Location: [id number] A : 1940 ? Height: 163 cm ? Account: [id number] Age: 83 yrs ? Weight: 76 kg Gender: Female ?BSA: 1.8 m2 Ordering Physician: ROSA DEWEY Referring Physician: OMAIRA GIRON Performed By: HAFSA Carmichael Reason For Study: STEMI Interpreting Fellow: Raymond Warren. Exam Location: [facility]. Interpretation Summary -The left [...] is no prior echocardiogram for comparison. Procedure Complete-98806. Satisfactory quality. There is sinus bradycardia. Left [...] Note Edgard Wang MD - 10/31/2023 [address] [place] [address] Echocardiogram Report Name: ADIN SANTOS Study Date: 407:57 AMBP: 106/76 mmHg Patient Location: [id number] A : 1940 Height: 163 cm Account: [id number] Age: 83 yrs Weight: 76 kg Gender: Female BSA: 1.8 m2 Ordering Physician: ROSA DEWEY Referring Physician: OMAIRA GIRON Performed By: HAFSA Carmichael Reason For Study: STEMI Interpreting Fellow: Raymond Warren. Exam Location: [facility]. Interpretation Summary -The left [...] is no prior echocardiogram for comparison. Procedure Complete-18608. Satisfactory quality. There is sinus bradycardia. Left [...] EDT) Troponin-T, High Sensitivity 571(H) <=14 ng/L [facility] Comment: This patient's troponin T [...] troponin value can be found in the [facility] Test Catalog Troponin - [facility] Test Catalog Reference: Fourth Lily Definition of Myocardial Infarction. Journal of the [place] [employer] 2018;72:4497-8700 Blood 10/31/2023 8:51 AM EDT 10/31/2023 9:12 AM EDT Narrative Resulting Agency Comment Spec In Lab Rosa Cornejo MD CHEMISTRY ORDERABLE S [facility] [place] [address] * CARDIAC CATHETERIZATION (10/31/2023 8:10 AM EDT) Anatomical Region Laterality Modality Other Narrative 11/07/2023 9:42 AM EDT ?[facility] ? Cardiac Catheterization/Intervention Report ? Patient Name: Adin Santos. ? Procedure Date: 10/30/2023 ? A #: [id number] ? Primary Physician: Rosa Dewey I ? Case #: [id number] ? File Name: [id number] ? Catheterization Order Number: [id number] ? [facility] ? Final Report [place], [place] ? Patient Name: ? Adin M. Goguen ?ID#: ?[id number] ? : ?1940 ? Procedure Date: ? [...] procedure was Emergent. The indication for ?the analytical lab analyst visit is ACS less than [...] A premounted 4.00 x 38 mm Andrea Hatillo (RADHA) was deployed ? with a maximum [...] dose administered prior to arrival in the analytical lab analyst. ?Recommended anti-platelet/anti-thrombotic regimen: ?Continue aspirin 81 mg daily for 12 months then stop. ?Continue clopidogrel 75 mg daily for indefinitely. ?These recommendations are made at the time of the intervention. Patient ?and provider preferences or a changing clinical situation may require ?modification of this regimen. Consult [facility] Interventional Cardiology for ?questions. ? Conclusions: ?* [...] - 12/05/2023 [facility] Cardiac Catheterization/Intervention Report Patient Name: Adin Santos Procedure Date: 10/30/2023 A #: [id number] Primary Physician: Rosa Dewey I Case #: [id number] File Name: [id number] Catheterization Order Number: [id number] [facility] FinalReport [place], [place] Patient Name: Adin CatherineYasir Edvinree ID#:[id number] :[id number] Procedure Date: October 30, 2023 Case #: [id number] Room: 5 Case Physician: Rosa Dewey M.D. [...] was designated as ASA Class III. The [facility] clinical frailtyscale is 5: Mildly Frail. Diagnostic Tests: Electrocardiography: EKG was assessed by ECG. EKG was Abnormal. EKG showed STDeviation >= 0.5 mm, other abnormality and dynamic EKG changes. Medications Prior to Procedure: Aspirin, Angiotensin II Receptor Kristy, Beta Kristy andStatin. Indications for Diagnostic Cath: The priority of the diagnostic procedure was Emergent. Theindication for the analytical lab analyst visit is ACS less than [...] priority for the procedure was Emergent.The [facility] indication for the procedure was [...] A premounted 4.00 x 38 mm Andrea Hatillo (RADHA) wasdeployed with a maximum inflation pressure [...] dose administered prior to arrival in the analytical lab analyst. Recommended anti-platelet/anti-thrombotic regimen: Continue aspirin 81 mg daily for 12 months then stop. Continue clopidogrel 75 mg daily for indefinitely. These recommendations are made at the time of the intervention.Patient and provider preferences or a changing clinical situation mayrequire modification of this regimen. Consult [facility] Interventional Cardiologyfor questions. Conclusions: * Two vessel [...] * (ABNORMAL) Troponin (10/31/2023 4:21 AM EDT) [facility] Troponin-T, High Sensitivity 457(H) <=14 ng/L [facility] Comment: This patient's troponin T [...] troponin value can be found in the [facility] Test Catalog Troponin - [facility] Test Catalog Reference: Fourth Lily Definition of Myocardial Infarction. Journal of the [place] [employer] 2018;72:1453-8625 Blood 10/31/2023 4:21 AM EDT 10/31/2023 4:30 AM EDT Narrative Resulting Agency Comment Spec In Lab Rosa Cornejo MD CHEMISTRY ORDERABLE S [facility] [place] [address] * (ABNORMAL) Differential, Automated (10/31/2023 3:05 AM EDT) Neutrophil % 71.7 % [facility] Neutrophil Absolute 8.21(H) 1.70 - 6.10 x10(3)/mc L [facility] Lymph % 16.9 % [facility] Lymphocytes Abs 1.9 0.9 - 3.2 x10(3)/mc L [facility] Monocyte % 9.4 % [facility] Monocyte Abs 1.1(H) 0.3 - 0.9 x10(3)/mc L [facility] Eos % 1.3 % [facility] Eosinophils Abs 0.2 0.0 - 0.4 x10(3)/mc L [facility] Basophil % 0.4 % [facility] Baso Absolute 0.0 0.0 - 0.1 x10(3)/mc L [facility] Immature Gran % 0.30 % [facility] Comment: Immature granulocytes(IG's)percentage and absolute count will include metamyelocytes, myelocytes, and promyelocytes. Blood smears from CBCs yielding IG's will be scanned manually for concordance. If this scan disagrees with the automated IG or if promyelocytes are noted, a manual differential will be performed. Immature Gran Absolute 0.04 0.00 - 0.04 x10(3)/mc L [facility] Blood 10/31/2023 3:05 AM EDT 10/31/2023 3:13 AM EDT Narrative Resulting Agency Comment Spec In Lab Qamar Gallardo MD HEMATOLOGY ORDERABLE S [facility] [place] [address] * (ABNORMAL) Hemogram (10/31/2023 3:05 AM EDT) White Blood Cell 11.5(H) 4.0 - 9.5 x10(3)/ L [facility] Red Blood Cell 3.75(L) 4.00 - 5.21 x10(6)/[facility] Hemoglobin 12.6 11.7 - 15.5 g/dL [facility] Hematocrit 37.1 35.7 - 45.8 % [facility] Mean Cell Volume 98.9(H) 82.6 - 94.4 fL [facility] Mean Cell Hemoglobin 33.6(H) 27.1 - 32.0 pg [facility] Mean Cell Hemoglobin Concentration 34.0 31.7 - 35.0 g/dL [facility] Platelet 206 145 - 357 x10(3)/ L [facility] RDW Standard Deviation 53.4(H) 37.0 - 46.0 [facility] RDW coefficient of variation 14.6(H) 11.5 - 14.1 % [facility] Mean Platelet Volume 11.1 7.6 - 12.9 [facility] NRBC% auto 0.0 % [facility] NRBC Absolute 0.000 0.000 - 0.000 x10(3)/ L [facility] Blood 10/31/2023 3:05 AM EDT 10/31/2023 3:13 AM EDT Narrative Resulting Agency Comment Spec In Lab Qamar Gallardo MD HEMATOLOGY ORDERABLE S Performing Organization Address [facility] Co de Phone Number [facility] [place] [address] * (ABNORMAL) APTT (10/31/2023 3:05 AM EDT) Partial Thromboplastin Time 67(H) 25 - 37 sec [facility] Comment: The PTT is NOT appropriate for heparin monitoring. Use the Anti-Xa level for heparin monitoring (HEP UFH) or LMWH monitoring (HEP LMW). A PTT less than 37 seconds generally indicates adequate hemostasis. Blood 10/31/2023 3:05 AM EDT 10/31/2023 3:13 AM EDT Narrative Resulting Agency Comment Spec In Lab Rosa Cornejo MD HEMATOLOGY ORDERABL ES Performing Organization Address [facility] de Phone Number [facility] [place] [address] * (ABNORMAL) Prothrombin Time (10/31/2023 3:05 AM EDT) Prothrombin Time 12.6(H) 9.4 - 12.5 sec [facility] International Normalization Ratio 1.1 [facility] Comment: An INR <2.0 indicates [...] Organization Address [facility] Co [place] [address] * (ABNORMAL) Differential, Automated (10/31/2023 1:37 AM EDT) Pathologist [facility] Neutrophil % 71.1 % [facility] Neutrophil Absolute 7.53(H) 1.70 - 6.10 x10(3)/ L [facility] Lymph % 18.0 % [facility] Lymphocytes Abs 1.9 0.9 - 3.2 x10(3)/ L [facility] Monocyte % 8.7 % [facility] Monocyte Abs 0.9 0.3 - 0.9 x10(3)/[facility] Eos % 1.6 % [facility] Eosinophils Abs 0.2 0.0 - 0.4 x10(3)/[facility] Basophil % 0.4 % [facility] Baso Absolute 0.0 0.0 - 0.1 x10(3)/[facility] Immature Gran % 0.20 % [facility] Comment: Immature granulocytes(IG's)percentage and absolute count will include metamyelocytes, myelocytes, and promyelocytes. Blood smears from CBCs yielding IG's will be scanned manually for concordance. If this scan disagrees with the automated IG or if promyelocytes are noted, a manual differential will be performed. Immature Gran Absolute 0.02 0.00 - 0.04 x10(3)/ L [facility] Blood 10/31/2023 1:37 AM EDT 10/31/2023 1:46 AM EDT Narrative Resulting Agency Comment Spec In Lab Qamar Gallardo MD HEMATOLOGY ORDERABLE S [facility] [place] [address] * (ABNORMAL) Hemogram (10/31/2023 1:37 AM EDT) Pathologist [facility] White Blood Cell 10.6(H) 4.0 - 9.5 x10(3)/mc L [facility] Red Blood Cell 3.78(L) 4.00 - 5.21 x10(6)/mc L [facility] Hemoglobin 13.0 11.7 - 15.5 g/dL [facility] Hematocrit 37.9 35.7 - 45.8 % [facility] Mean Cell Volume 100.3(H) 82.6 - 94.4 fL [facility] Mean Cell Hemoglobin 34.4(H) 27.1 - 32.0 pg [facility] Mean Cell Hemoglobin Concentration 34.3 31.7 - 35.0 g/dL [facility] Platelet 204 145 - 357 x10(3)/ L [facility] RDW Standard Deviation 54.3(H) 37.0 - 46.0 fL [facility] RDW coefficient of variation 14.6(H) 11.5 - 14.1 % [facility] Mean Platelet Volume 11.1 7.6 - 12.9 fL [facility] NRBC% auto 0.0 % [facility] NRBC Absolute 0.000 0.000 - 0.000 x10(3)/ L [facility] Blood 10/31/2023 1:37 AM EDT 10/31/2023 1:46 AM EDT Narrative Resulting Agency Comment Spec In Lab Qamar Gallardo MD HEMATOLOGY ORDERABLE S [facility] [place] [address] * Phosphorus (10/31/2023 1:37 AM EDT) Phosphorus 3.2 2.5 - 4.5 mg/dL [facility] Blood 10/31/2023 1:37 AM EDT 10/31/2023 1:46 AM EDT Narrative Resulting Agency Comment Spec In Lab Rosa Cornejo MD CHEMISTRY ORDERABLE S [facility] [place] [address] * Magnesium (10/31/2023 1:37 AM EDT) Pathologist [facility] Magnesium 0.83 0.69 - 1.07 mmol/L [facility] Blood 10/31/2023 1:37 AM EDT 10/31/2023 1:46 AM EDT Narrative Resulting Agency Comment Spec In Lab Rosa Cornejo MD CHEMISTRY ORDERABLE S Performing Organization Address [facility] Co de Phone Number [facility] [place] [address] * Basic Metabolic Panel (non-fasting) (10/31/2023 1:37 AM EDT) Pathologist [facility] Glucose 114 65 - 199 mg/dL [facility] Comment:Diabetes: >=200 mg/d L plus symptoms Blood Urea Nitrogen 13 8 - 18 mg/dL [facility] Creatinine 0.81 0.70 - 1.20 mg/dL [facility] Sodium 140 135 - 145 mmol/L [facility] Potassium 3.9 3.5 - 5.0 mmol/L [facility] Comment: Please note: ??Patients with WBC >100,000 may have falsely elevated Potassium levels. ??For accurate Potassium quantification in these patients send serum separator tube (gold top) for subsequent determinations. ??Contact the Clinical Chemistry Laboratory if there are any questions. Chloride 107 98 - 107 mmol/L [facility] Carbon Dioxide 25 22 - 31 mmol/L [facility] Anion Gap 8 5 - 15 mmol/L [facility] Calcium 8.6 8.5 - 10.5 mg/dL [facility] Est Glomerular Filtration Rate 72 >=60 mL/min/1. 73 m?? [facility] Comment: This patient's estimated GFR [...] Lab Rosa Cornejo MD CHEMISTRY ORDERABLE S [facility] [place] [address] * (ABNORMAL) Troponin (10/31/2023 1:37 AM EDT) Troponin-T, High Sensitivity 329(H) <=14 ng/L [facility] Comment: This patient's troponin T [...] troponin value can be found in the [facility] Test Catalog Troponin - [facility] Test Catalog Reference: Fourth Lily Definition of Myocardial Infarction. Journal of the [place] [employer] 2018;72:4930-1575 Blood 10/31/2023 1:37 AM EDT 10/31/2023 1:46 AM EDT Narrative Resulting Agency Comment Spec In Lab Rosa Cornejo MD CHEMISTRY ORDERABLE S Performing Organization Address [facility]/ZIP Co de Phone Number [facility] [place] [address] * EKG 12 Lead (10/31/2023 1:20 AM EDT) Ventricular rate 52 BPM MUSE SYSTEM Atrial Rate 52 BPM MUSE SYSTEM P-R Interval 224 ms MUSE SYSTEM QRS Duration 108 ms MUSE SYSTEM Q-T Interval 544 ms MUSE SYSTEM QTC Calculated (Bezet) 505 ms MUSE SYSTEM Calculated P [place] 90 degrees MUSE SYSTEM Calculated R [place] -57 degrees MUSE SYSTEM Calculated T [place] -63 degrees MUSE SYSTEM INTERPRETATION Sinus bradycardia [...] Cornejo MD ECG ORDERABLES Performing Organization Address City/[facility]/ZIP Co de Phone Number MUSE SYSTEM * EKG 12 Lead (10/30/2023 10:40 PM EDT) Ventricular rate 55 BPM MUSE SYSTEM Atrial Rate 55 BPM MUSE SYSTEM P-R Interval 232 ms MUSE SYSTEM QRS Duration 102 ms MUSE SYSTEM Q-T Interval 520 ms MUSE SYSTEM QTC Calculated (Bezet) 497 ms MUSE SYSTEM Calculated P [place] 75 degrees MUSE SYSTEM Calculated R [place] -53 degrees MUSE SYSTEM Calculated T [place] -57 degrees MUSE SYSTEM INTERPRETATION Sinus bradycardia [...] Chest One View (10/30/2023 10:10 PM EDT) [facility] WORKSTATION ID [id number] DH RAD Anatomical Region Laterality Modality Chest [...] and low lung volumes. Findings similar to requisition approver radiograph from CT 10/30/2023. Thank you for letting us participate in the care of this patient. ??If you are a health care provider and have any questions regarding this report, please contact the number below. ??For patients who have questions please contact the health housekeeper child care that requested your imaging first. ? Narrative [...] and low lung volumes. Findings similar to requisition approver radiograph from CT 10/30/2023. Thank you for letting us participate in the care of this patient. If youare a health care provider and have any questions regarding this report,please contact the number below. For patients who have questions please contactthe health housekeeper child care that requested your imaging first. Rosa Cornejo MD IMG DX ORDERABLES * Green Tube HOLD (10/30/2023 10:05 PM EDT) Pathologist [facility] Green Hold Sample in lab. [facility] Blood Venous Draw / Unknown 10/30/2023 10:05 PM EDT 10/30/2023 10:13 PM EDT Qamar Gallardo MD CHEMISTRY ORDERABLES [facility] [place] [address] * (ABNORMAL) Differential, Automated (10/30/2023 10:05 PM EDT) Pathologist [facility] Neutrophil % 76.6 % [facility] Neutrophil Absolute 6.94(H) 1.70 - 6.10 x10(3)/mc L [facility] Lymph % 15.4 % [facility] Lymphocytes Abs 1.4 0.9 - 3.2 x10(3)/mc L [facility] Monocyte % 6.1 % [facility] Monocyte Abs 0.6 0.3 - 0.9 x10(3)/mc L [facility] Eos % 1.1 % [facility] Eosinophils Abs 0.1 0.0 - 0.4 x10(3)/mc L [facility] Basophil % 0.6 % [facility] Baso Absolute 0.0 0.0 - 0.1 x10(3)/mc L [facility] Immature Gran % 0.20 % [facility] Comment: Immature granulocytes(IG's)percentage and absolute count will include metamyelocytes, myelocytes, and promyelocytes. Blood smears from CBCs yielding IG's will be scanned manually for concordance. If this scan disagrees with the automated IG or if promyelocytes are noted, a manual differential will be performed. Immature Gran Absolute 0.02 0.00 - 0.04 x10(3)/mc L [facility] Blood 10/30/2023 10:0 5 PM EDT 10/30/2023 10:12 PM EDT Narrative Resulting Agency Comment Spec In Lab Qamar Gallardo MD HEMATOLOGY ORDERABLE S [facility] [place] [address] * (ABNORMAL) Hemogram (10/30/2023 10:05 PM EDT) White Blood Cell 9.0 4.0 - 9.5 x10(3)/mc L [facility] Red Blood Cell 3.96(L) 4.00 - 5.21 x10(6)/mc L [facility] Hemoglobin 13.3 11.7 - 15.5 g/dL [facility] Hematocrit 39.1 35.7 - 45.8 % [facility] Mean Cell Volume 98.7(H) 82.6 - 94.4 fL [facility] Mean Cell Hemoglobin 33.6(H) 27.1 - 32.0 pg [facility] Mean Cell Hemoglobin Concentration 34.0 31.7 - 35.0 g/dL [facility] Platelet 211 145 - 357 x10(3)/mc L [facility] RDW Standard Deviation 53.6(H) 37.0 - 46.0 fL [facility] RDW coefficient of variation 14.6(H) 11.5 - 14.1 % [facility] Mean Platelet Volume 11.1 7.6 - 12.9 fL [facility] NRBC% auto 0.0 % [facility] NRBC Absolute 0.000 0.000 - 0.000 x10(3)/mc L [facility] Blood 10/30/2023 10:0 5 PM EDT 10/30/2023 10:12 PM EDT Narrative Resulting Agency Comment Spec In Lab Qamar Gallardo MD HEMATOLOGY ORDERABLE S Performing Organization Address [facility] Co de Phone Number [facility] [place] [address] * Hemoglobin A1c (10/30/2023 10:05 PM EDT) Hemoglobin A1c 5.5 4.3 - 5.6 % [facility] Comment: Reference Range: 4.3 - [...] Mellitus, Diabetes Care 2013; 36: Suppl. 1, S67-59 Estimated Average Glucose See note mg/dL [facility] Comment: Estimated Average Glucose not appropriate for patients over 70 years of age. Blood 10/30/2023 10:0 5 PM EDT 10/30/2023 10:12 PM EDT Narrative Resulting Agency Comment Spec In Lab Rosa Cornejo MD CHEMISTRY ORDERABLE S Performing Organization Address [facility] Co de Phone Number [facility] [place] [address] * Lipid Panel (Reflex Direct LDL) (10/30/2023 10:05 PM EDT) Cholesterol, Total 218 mg/dL [facility] Comment: Desirable: ? <200 mg/dL Borderline High: 200-239 mg/dL Higher: ?>df=620 mg/dL Triglyceride 46 mg/dL [facility] Comment: Normal: ?<150 mg/dL Borderline High: 150-199 mg/dL High: ?200-499 mg/dL Very High: ? >mb=955 mg/dL HDL Cholesterol 64 mg/dL [facility] Comment: Females: High Risk: <50 mg/dL Males: High Risk: <40 mg/dL LDL Cholesterol 145 mg/dL [facility] Comment: Desirable: ? <100 mg/dL Above Desirable: 100-129 mg/dL Borderline High: 130-159 mg/dL High: ?160-189 mg/dL Very High: ? >yr=195 mg/dL Lipid Interpretation See Note [facility] Comment: It is important to [...] ACC/AHA Guidelines (most recently Feliciano et al. [facility] 03/23/22): For individuals with atherosclerotic cardiovascular disease (ASCVD)or LDL >kt=718 mg/dL, use a high-intensity statin (40-80 mg [...] ORDERABLE S Performing Organization Address [facility] Co de Phone Number [facility] [place] [address] * TSH [place] (10/30/2023 10:05 PM EDT) Thyroid Stimulating Hormone 3.35 0.27 - 4.20 mcIU/mL [facility] Comment: Reference Interval (mcIU/mL): Females: ??First Trimester: 0.23-3.88 ??Second Trimester: 0.22-3.90 ??Third Trimester: 0.44-4.66 Blood 10/30/2023 10:0 5 PM EDT 10/30/2023 10:12 PM EDT Narrative Resulting Agency Comment Spec In Lab Rosa Cornejo MD CHEMISTRY ORDERABLE S Performing Organization Address [facility] Co de Phone Number [facility] [place] [address] * pro-Brain Natriuretic Peptide (10/30/2023 10:05 PM EDT) NT-proBNP 375 <=449 pg/mL [facility] Blood 10/30/2023 10:0 5 PM EDT 10/30/2023 10:12 PM EDT Narrative Resulting Agency Comment Spec In Lab Rosa Cornejo MD CHEMISTRY ORDERABLE S [facility] [place] [address] * (ABNORMAL) Comprehensive metabolic panel (non-fasting) (10/30/2023 10:05 PM EDT) Glucose 121 65 - 199 mg/dL [facility] Comment:Diabetes: >=200 mg/d L plus symptoms Blood Urea Nitrogen 14 8 - 18 mg/dL [facility] Creatinine 0.85 0.70 - 1.20 mg/dL [facility] Sodium 142 135 - 145 mmol/L [facility] Potassium 3.9 3.5 - 5.0 mmol/L [facility] Comment: Please note: ??Patients with WBC >100,000 may have falsely elevated Potassium levels. ??For accurate Potassium quantification in these patients send serum separator tube (gold top) for subsequent determinations. ??Contact the Clinical Chemistry Laboratory if there are any questions. Chloride 105 98 - 107 mmol/L [facility] Carbon Dioxide 27 22 - 31 mmol/L [facility] Anion Gap 10 5 - 15 mmol/L [facility] Calcium 8.8 8.5 - 10.5 mg/dL [facility] Protein, Total 6.5 6.1 - 8.0 g/dL [facility] Albumin 4.2 3.2 - 5.2 g/dL [facility] Aspartate Aminotransferase 36(H) 0 - 30 unit/L [facility] Alanine Aminotransferase 17 0 - 30 unit/L [facility] Alkaline Phosphatase 54 35 - 105 unit/L [facility] Bilirubin, Total 0.5 0.2 - 1.3 mg/dL [facility] Est Glomerular Filtration Rate 68 >=60 mL/min/1. 73 m?? [facility] Comment: This patient's estimated GFR [...] MD CHEMISTRY ORDERABLE S Performing Organization Address City/[facility]/ZIP Co de Phone Number [facility] [place] [address] * Phosphorus (10/30/2023 10:05 PM EDT) Phosphorus 3.3 2.5 - 4.5 mg/dL [facility] Blood 10/30/2023 10:0 5 PM EDT 10/30/2023 10:12 PM EDT Narrative Resulting Agency Comment Spec In Lab Rosa Cornejo MD CHEMISTRY ORDERABLE S Performing Organization Address City/[facility]/ZIP Co de Phone Number [facility] [place] [address] * Magnesium (10/30/2023 10:05 PM EDT) Magnesium 0.86 0.69 - 1.07 mmol/L [facility] Blood 10/30/2023 10:0 5 PM EDT 10/30/2023 10:12 PM EDT Narrative Resulting Agency Comment Spec In Lab Rosa Cornejo MD CHEMISTRY ORDERABLE S Performing Organization Address City/[facility]/ZIP Co de Phone Number [facility] [place] [address] * (ABNORMAL) Troponin (10/30/2023 10:05 PM EDT) [facility] Troponin-T, High Sensitivity 214(H) <=14 ng/L [facility] Comment: This patient's troponin T [...] troponin value can be found in the [facility] Test Catalog Troponin - [facility] Test Catalog Reference: Fourth Lily Definition of Myocardial Infarction. Journal of the [place] [employer] 2018;72:3237-2435 Blood 10/30/2023 10:0 5 PM EDT 10/30/2023 10:12 PM EDT Narrative Resulting Agency Comment Spec In Lab Rosa Cornejo MD CHEMISTRY ORDERABLE S [facility] [place] [address] * EKG 12 Lead (10/30/2023 8:21 PM EDT) [facility] Ventricular rate 49 BPM MUSE SYSTEM Atrial Rate 49 BPM MUSE SYSTEM P-R Interval 230 ms MUSE SYSTEM QRS Duration 96 ms MUSE SYSTEM Q-T Interval 526 ms MUSE SYSTEM QTC Calculated (Bezet) 475 ms MUSE SYSTEM Calculated P [place] 98 degrees MUSE SYSTEM Calculated R [place] -48 degrees MUSE SYSTEM Calculated T [place] -51 degrees MUSE SYSTEM INTERPRETATION Sinus bradycardia with 1st degree A-V block Incomplete right bundle branch block Left anterior fascicular block Moderate voltage criteria for LVH, may be normal variant ( R in aVL , [place] product ) T wave abnormality, consider inferior [...] Minutes 1107 (New Bag - Provider: Mary wSeeney RN)1207 (Stopped - Provider: Mary Sweeney RN) [...] last 24 to 72 hours., Routine 1333 ([facility] Hold - Provider: Admin Adt - Reason: Transfer to a Procedural area)1548 ([facility] [facility] Unhold - Provider: Admin Adt) sodium chloride 0.9 % (flush) (BD PosiFlush Normal Saline 0.9) flush 5-20 mL 5-20 mL, Intravenous, EVERY 1 MIN PRN, Starting on 10/30/23 at 2208, Until Amna 11/03/23 at 1913, flush, Flush pertains to all indwelling lines. Flush per protocol found in the job aid using the link provided on this medication record., Routine 1333 ([facility] Hold - Provider: Admin Adt - Reason: Transfer to a Procedural area)1548 ([facility] Unhold - Provider: Admin Adt) documented in this encounter Additional Health Concerns Infection Onset Date Last Indicated Resolved Time Rule Out Respiratory 11/02/2023 11/02/2023 024 12:22 PM EDT Rule Out COVID-19 11/02/2023 11/02/2023 11/02/2023 12:22 PM EDT documented as of this encounter Care Teams Traffic Or System Dispatcher Relationship Specialty Start Date End Date Rosie Mathews MD [address] [place] [address] PCP - General Family Medicine 11/25/17 11/23/23 documented as of this encounter
--- OUTSIDE RECORDS SUMMARY | 2024-02-24 19:53 | XMS_ITS | Encounter Summary ---
Author Organization [facility] Address [facility] [place] [address] Care Team Providers Care Lathe Set Up Operator Name Role Phone Masood Pierson MD Primary Care Provider [phone] Encounter Details Date Type Department Care Team (Latest Contact Info) Description 11/24/2023 Travel Social History Tobacco Use Types Packs/Day Years Used Date Smoking Tobacco: Former Smokeless Tobacco: Never Alcohol Use Standard Drinks/Week Comments Not Currently 0 (1 standard drink = 0.6 oz pur e alcohol) [facility] Utilities Answer Date Recorded In the [...] AM EDT Office Visit Cardiology at [address] [phone] Izaiah Meyer MD [facility] [place] [address] documented as of this encounter Visit Diagnoses Not on filedocumented in this encounter Care Teams Lathe Set Up Operator Relationship Specialty Start Date End Date Masood Pierson MD [address] [place] [address] PCP - General Family Medicine 11/24/23 documented as of this encounter
--- OUTSIDE RECORDS SUMMARY | 2024-02-24 19:53 | XMS_ITS | Encounter Summary ---
Author Organization [facility] Address [facility] [place] [address] Care Team Providers Care Intrusion Analyst Name Role Phone Rosie Mathews MD Primary Care Provider [phone] Encounter Details Date Type Department Care Team (Late st Contact Info) Description 11/18/2023 Telephone Cardiology at [address] [phone] Cheryl Guzman MD [facility] [place] [address] Social History Tobacco Use Types Packs/Day Years Used Date Smoking Tobacco: Former Smokeless Tobacco: Never Alcohol Use Standard Drinks/Week Comments Not Currently 0 (1 standard drink = 0.6 oz pur e alcohol) [facility] Utilities Answer Date Recorded In the past 12 months has e electric, gas, oil, or water [employer] threatened to shut off services in [...] [place] Past Medical History: HTN HLD NSTEMI ([facility] 11/02, status-post revasc) Presenting Symptoms per OSH: Lyla Goodrich is a 83 y.o. woman who presents to [facility] [place] with an episode of chest pain. Recent admission to [facility] with NSTEMI status-post PCI to the prox-RCA [...] today's values. RCA was described as a [employer]. Recommend admission for observation to assess for [...] AM EDT Office Visit Cardiology at [address] [phone] Izaiah Meyer MD [facility] [place] [address] documented as of this encounter Visit Diagnoses Not on filedocumented in this encounter Care Teams Intrusion Analyst Relationship Specialty Start Date End Date Rosie Mathews MD [address] [place] [address] PCP - General Family Medicine 11/25/17 11/23/23 documented as of this encounter
--- OUTSIDE RECORDS SUMMARY | 2024-02-24 19:53 | XMS_ITS | Encounter Summary ---
Author Organization [facility] Address [facility] [address] Care Team Providers Care Pharmacist Technician Name Role Phone Rosie Mathews MD Primary Care Provider [phone] Reason for Visit * Reason Onset Date Comments Referral 11/03/2023 Coronary Artery Disease 11/03/2023 Encounter Details Date Type Department Care Team (Late st Contact Info) Description 11/03/2023 Telephone Cardiology at [address] [phone] Andressa Machado, mental health counselor; Coronary Artery Disease Social History Tobacco Use Types Packs/Day Years Used Date Smoking Tobacco: Former Smokeless Tobacco: Never Alcohol Use Standard Drinks/Week Comments Not Currently 0 (1 standard drink = 0.6 oz pur e alcohol) [facility] Utilities Answer Date Recorded In the past 12 months has e [place], gas, oil, or water [employer] threatened to shut off services in your [...] in a halfway (including now)? No 11/01/2023 IPV Inpatient Questions [...] Heart and Vascular Clinics [facility] [address] [place] [phone] Lyla was referred to this Cardiology clinic in [place] for post cardiac cath 10/31 for STEMI follow up as part of [place] [facility] documented in this encounter Plan of Treatment Upcoming Encounters Date Type Department Care Team (Late st Contact Info) Description 03/29/2024 11:20 AM EDT Office Visit Cardiology at [address] [place] [address] Izaiah Meyer MD [facility] [place] [address] documented as of this encounter Visit Diagnoses Not on filedocumented in this encounter Care Teams Pharmacist Technician Relationship Specialty Start Date End Date Rosie Mathews MD [address] [place] [address] PCP - General Family Medicine 11/25/17 11/23/23 documented as of this encounter
--- OUTSIDE RECORDS SUMMARY | 2024-02-24 19:54 | XMS_ITS | Encounter Summary ---
Author Organization [facility] [place] [address] Care Team Providers Care Wood Crafter Name Role Phone Rosie Mathews MD Primary Care Provider [phone] Reason for Visit * Auth/Cert (Routine) Specialty Diagnoses / Procedures Referred By Contac t Referred To Contact Diagnoses Unstable angina Procedures [facility] [employer] [facility] [employer] [employer] [facility] Referral ID Status Reason Start Date Expiration Date Visits Re quested Visits Authorized [id number] 1 1 Encounter Details Date Type Department Care Team (Latest Contact Info) Description 10/30/2023 5:00 PM EDT - 10/30/2023 5:10 PM EDT Hospital En[place] [phone] Rosa Menjivar MD [facility] [place] [address] Discharge Disposition: Home Social History Tobacco Use Types Packs/Day Years Used Date Smoking Tobacco: Former Smokeless Tobacco: Never Alcohol Use Standard Drinks/Week Comments Not Currently 0 (1 standard drink = 0.6 oz pur e alcohol) [facility] Inpatient Questions Answer Date Recorded Does [...] 11:20 AM EDT Office Visit Cardiology at [address] [place] [address] Izaiah Meyer MD [facility] [place] [address] documented as of this encounter Visit Diagnoses Not on filedocumented in this encounter Care Teams Wood Crafter Relationship Specialty Start Date End Date Rosie Mathews MD [address] [place] [address] PCP - General Family Medicine 11/25/17 11/23/23 documented as of this encounter
--- OUTSIDE RECORDS SUMMARY | 2024-02-24 19:54 | XMS_ITS | Encounter Summary ---
Author Organization [facility] [place] [address] Care Team Providers Care Audit Associate Name Role Phone Rosie Mathews MD Primary Care Provider [phone] Encounter Details Date Type Department Care Team (Late st Contact Info) Description 10/30/2023 5:00 PM EDT Ancillary Procedure [place] [phone] Izaiah Meyer MD [facility] [place] [address] Social History Tobacco Use Types Packs/Day Years Used Date Smoking Tobacco: Former Smokeless Tobacco: Never Alcohol Use Standard Drinks/Week Comments Not Currently 0 (1 standard drink = 0.6 oz pur e alcohol) [facility] Inpatient Questions Answer Date Recorded [...] AM EDT Office Visit Cardiology at [address] [place] [address] Izaiah Meyer MD [facility] [place] [address] documented as of this encounter Procedures Procedure Name Priority Date/Time Associated Diagnosis Comments FILM LIBRARY STORAGE ONLY CT CHEST Routine 10/30/2023 4:59 PM EDT documented in this encounter Results * Film Library- Storage Only CT Chest (10/30/2023 4:59 PM EDT) Narrative [facility] 10/30/2023 4:59 PM EDT This exam is auto-finalizing. It's purpose is for storage only. Izaiah Meyer MD IMG FILM LIBRARY ORD ERABLES Performing Organization Address City/State/[facility] Co de Phone Number [place], [place] documented in this encounter Visit Diagnoses Not on filedocumented in this encounter Care Teams Audit Associate Relationship Specialty Start Date End Date Rosie Mathews MD [address] [place] [address] PCP - General Family Medicine 11/25/17 11/23/23 documented as of this encounter
--- OUTSIDE RECORDS SUMMARY | 2024-02-24 19:54 | XMS_ITS | Encounter Summary ---
Author Organization [facility] [place] [address] Care Team Providers Care Coach Driver Name Role Phone Rosie Mathews MD Primary Care Provider [phone] Reason for Visit * Auth/Cert (Routine) Specialty Diagnoses / Procedures Referred By Contbruce t Referred To Contact Diagnoses Unstable angina Chest pain NSTEMI Procedures CARDIAC CATHETERIZATION Rosa Dewey MD [facility] [place] [address] [facility] Referral ID Status Reason Start Date Expiration Date Visits Re quested Visits Authorized [id number] 1 1 Encounter Details Date Type Department Care Team (Late st Contact Info) Description 11/01/2023 3:33 PM EDT - 11/01/2023 5:03 PM EDT Surgery [place] [address] Rosa Dewey MD [facility] [address] [place], [place] [id number] CARDIAC CATHETERIZATION Social History Tobacco Use Types Packs/Day Years Used Date Smoking Tobacco: Former Smokeless Tobacco: Never Alcohol Use Standard Drinks/Week Comments Not Currently 0 (1 standard drink = 0.6 oz pur e alcohol) [facility] Utilities Answer Date Recorded In the [...] for hypertension and hyperlipidemia who presented to [facility] as a transfer from [facility] as a possible STEMI alert with acute onset chest pain. The patient reports that her symptoms initially began on Tuesday when she was walking to [facility] and experienced bilateral arm heaviness while walking with no other symptoms. Then, this afternoon shereports developing bilateral achy shoulder pain and nonradiating substernal left-sided chest pressure that was 7/10 in severity after coming home from [employer]. The patient denies any associated fevers, chills, diaphoresis, lightheadedness/dizziness, syncope/presyncope, dyspnea (either at rest or on exertion), palpitations, orthopnea, or PND. The patient subsequently presented to [facility] as a walk-in for further [...] on repeat, her TRU resolved. Cardiology at [facility] was consulted for transfer; the patient was loaded with aspirin 324 mg and ticagrelor 180 mg, started on a heparin drip, and given nitroglycerin with improvement in chest pain. Upon arrival to [facility], the patient was taken directly to the Interventional Cardiologist. Two lesions were discovered: one in the prox RCA (felt to almost be a MARINE DESIGN ENGINEER but they were able to wire, [...] dose administered prior to arrival in the malthouse laborer. Recommended anti-platelet/anti-thrombotic regimen: Continue aspirin 81 [...] and low lung volumes. Findings similar to worm raiser radiograph from CT 10/30/2023. Pending Studies and [...] 10:40 AM Izaiah Meyer MD Cardiology at [place] Arrive at: [facility] [address] [phone] Future Orders Complete By Expires Referral to Cardiac Rehab [[id number] Custom] As directed Process Instructions: If no progress note charted, please enter Clinical details in comments. Scheduling Instructions: Questions: My question or request is: STEMI. Cardiac rehab at [facility]. Referral to Home Health [[id number] Custom] As directed Process Instructions: If no progress note charted, please enter Clinical details in comments. Scheduling Instructions: Comments: Please evaluate Adin Santos for admission to Home Health. [address] [facility] [address] (home) Date of : 1940 Inpatient DOCUMENTATION FOR VNA SERVICES (INCLUDING THOSE PATIENTS WITH MEDICARE COVERAGE REQUIRING HOME VNA SERVICES AND/OR HOSPICE SERVICES) PATIENT'S LOCATION: Adin Santos [address] [facility] [address] (home) Cell: Telephone Information: Building Serviceman's Name: self In discussion with the attending physician, it is certified that this patient is under their care and that they, or a Nurse Practitioner, Clinical Nurse specialist or Physician Information Technology Auditor who is working directly with them, had [...] regarding health issues HOME HEALTH CARE AGENCY: [facility] [address] [address] START OF CARE: within 24-48 hours of [...] Rosie Mathews MD [address] / [facility] [address] . All A agencies which cover [...] MD / Dr. Masood Pierson [address] [place] [address] 11/09/23 1:55 PM arrival for 2:10 PM appointment Pedigree Researcher: Izaiah Meyer MD [address] [place] [address] , 11/24/2023 10:40 AM Your Inpatient Medical Team at [facility] Name(s) of your inpatient provider(s): Attending physician: Rosa Hugo MD Resident physicians: Emile Robles MD; Elmer Tamez MD If you have non-emergent questions, prior to your follow-up visit call: Tuesday-Tuesday between the hours of 8AM-5PM please call the Cardiology Clinic [phone] to speak with a nurse. All other hours please call the Hospital Telehealth Nurse Educator [phone] and ask to speak to the garnett mechanic on-call. Your Primary Care Provider Rosie Mathews MD [phone] For questions regarding this document or issues relating to this hospitalization on the Medical Service, please contact your inpatient physician through the [facility] Telehealth Nurse Educator . Issues afterhours and on weekends will be handled by the Pedigree Researcher staff on-call. Associated attestation - Rosa Hugo [...] Mathews MD / Dr. Masood Pierson [address] [place] [id number] 11/09/23 1:55 PM arrival for 2:10 PM appointment Pedigree Researcher: Izaiah Meyer MD [address] [place] [address] , 11/24/2023 10:40 AM Your Inpatient Medical Team at [facility] Name(s) of your inpatient provider(s): Attending physician: Rosa Hugo MD Resident physicians: Emile Robles MD; Elmer Tamez MD If you have non-emergent questions, prior to your follow-up visit call: Tuesday-Tuesday between the hours of 8AM-5PM please call the Cardiology Clinic [phone] to speak with a nurse. All other hours please call the Hospital Telehealth Nurse Educator [phone] and ask to speak to the garnett mechanic on-call. Your Primary Care Provider Rosie Mathews MD [phone] documented in this encounter Medications at Time [...] for hypertension and hyperlipidemia who presented to [facility] as a transfer from [facility] as a possible STEMI alert [...] for hypertension and hyperlipidemia who presented to [facility] as a transfer from [facility] as a possible STEMI alert [...] Resident on Cardiology Service Cardiology S1 (Pager [phone]) Note written in conjunction with Claudio Perla [facility] Medical Student, MS3 Associated attestation - Rosa [...] Nirmala Webb - 11/01/2023 11:25 AM EDT Mandarin Tutor Encounter Note Patient Name: Adin Santos : [id number] MR#: [id number] Admit Date: 10/30/2023 5:11 PM Hospital Day 2 days Narrative: Self initiated visit to patient for Spiritual support in a regular unit rounds. Assessment: Patient is in the bathroom at the time of this visit. Not a good time for Renal Dialysis Technician visit. Intervention and Outcome: An attempted [...] for hypertension and hyperlipidemia who presented to [facility] as a transfer from [facility] as a possible STEMI alert [...] and low lung volumes. Findings similar to worm raiser radiograph from CT 10/30/2023. Scheduled Medications: [AUG [...] for hypertension and hyperlipidemia who presented to [facility] as a transfer from [facility] as a possible STEMI alert [...] Resident on Cardiology Service Cardiology S1 (Pager [phone]) Note written in conjunction with Claudio Perla [facility] Medical Student, MS3 Associated attestation - Rosa [...] Will start beta rodrick if HR tolerates oRsa Hugo MD Advanced Heart Disease and Pulmonary Hypertension * Elmer Tamez MD - 10/31/2023 7:02 AM EDT Inpatient Cardiology Progress Note Patient Name: Adin Santos Date of Admission: 10/30/2023 ( Hospital Day 1 day ) Service: S1 ID: Adin Santos is a 83 y.o. female PMH significant for hypertension and hyperlipidemia who presented to [facility] as a transfer from [facility] as a possible STEMI alert with acute onset chest pain. Active Problems: Active Hospital Problems Diagnosis Unstable angina Resolved Hospital Problems No resolved problems to display. 24 hr events: - Cath'd yesterday with lesion in the proximal RCA (initially thought it was MARINE DESIGN ENGINEER but they were ableto wire, balloon [...] and low lung volumes. Findings similar to worm raiser radiograph from CT 10/30/2023. TTE (10/30): Interpretation [...] for hypertension and hyperlipidemia who presented to [facility] as a transfer from [facility] as a possible STEMI alert [...] Resident on Cardiology Service Cardiology S1 (Pager [phone]) Note written in conjunction with Claudio Perla [facility] Medical Student, MS3 Associated attestation - Rosa [...] PCP: Rosie Mathews MD PCP phone number: [phone] Date of Admission: 10/30/2023 ( Hospital Day 0 days ) Attending:Rosa Cornejo MD ID: Adin Santos is a 83 y.o. female PMH significant for hypertension and hyperlipidemia who presented to [facility] as a transfer from [facility] as a possible STEMI alert with acute onset chest pain. The patient reports that her symptoms initially began on Tuesday when she was walking to [facility] and experienced bilateral arm heaviness while walking with no other symptoms. Then, this afternoon shereports developing bilateral achy shoulder pain and nonradiating substernal left-sided chest pressure that was 7/10 in severity after coming home from [employer]ecostalism. The patient denies any associated fevers, chills, diaphoresis, lightheadedness/dizziness, syncope/presyncope, dyspnea (either at rest or on exertion), palpitations, orthopnea, or PND. The patient subsequently presented to [facility] as a walk-in for further [...] on repeat, her TRU resolved. Cardiology at [facility] was consulted for transfer; the patient was loaded with aspirin 324 mg and ticagrelor 180 mg, started on a heparin drip, and given nitroglycerin with improvement in chest pain. Upon arrival to [facility], the patient was taken directly to the Interventional Cardiologist. 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 Findings similar to worm raiser radiograph from CT 10/30/2023. Assessment & Plan: Adin Santos is a 83 y.o. female PMH significant for hypertension and hyperlipidemia who presented to [facility] as a transfer from [facility] as a possible STEMI alert [...] with HTN HLD transferred with chest from [facility]. BP 217/68, HR [address] [...] information for follow-up Home Health & Hospice, [place] [address] TANESHA BOYCE confirmed with [facility] that they will see the patient within 24-48 hours of discharge for start of care. Transportation: family or friend will provide Wheelchair van/Ambulance? No Functional status prior to admission: Assistive Equipment Home Environment: Others in the home: alone. Current Living Arrangements: home/apartment/condo. Accessibility Concerns:1st floor apartment in shelter community; handicapped accessible. Current Functional Ability: Assistive Equipment DME used at home: cane - straight, grab bar - tub/shower, grab bar - toilet, raised toilet seat DME Needed at Discharge: N/A Patient is insured through: Primary Insurance: SeeOn MANAGED MEDICARE Payor: [employer] MANAGED MEDICARE / Plan: SeeOn MANAGED MEDICARE PPO / Product Type: *No [...] in the room. Electrolytes replaced, see MAR. wastewater analyst lab analyst sites remained C/D/I with baseline ecchymosis unchanged. Pt complained of back pain, lidocaine patch given. Right IV infiltrated during infusion, patient is marked with sharpie, IV removed. See flowsheet for I+O's and safety rounding. Patient is able to make needs known and call capps within reach. PLAN MOVING FORWARD: Monitor Tele, control BP, monitor malthouse laborer sites, D/C Planning INDIVIDUALIZED FALL PREVENTION [...] in an outpatient cardiac rehabilitation program at [facility] was discussed. Patient agrees to a referral [...] and above on RA. PT went to malthouse laborer today. Left fem site oozed throughout [...] MOVING FORWARD: Monitor Tele, control BP, monitor malthouse laborer sites, D/C Planning INDIVIDUALIZED FALL PREVENTION [...] Admitted From: Transfer from another hospital Location: [facility] Reason for Hospitalization: chest pain Covid Vaccination [...] receiving care in [place] must abide by [place] law. The hierarchy [...] Arrangements: home/apartment/condo. Accessibility Concerns:1st floor apartment in shelter community; handicapped accessible. In the last 12 [...] has the electric, gas, oil, or water [employer] threatened to shut off services in your [...] toilet seat Home Address confirmed as: [address] [facility] [address] Social & Family Supports: All names listed below confirmed with patient as current and correct Extended Emergency Contact Information Primary Emergency Contact: Iris Downing Address: [address] [place], [place] [id number] [place] [address] Mobile Relation: Child Secondary Emergency Contact: Karen More Address: [address] [facility] Mobile Relation: Child Current Care Provided by: self Provides Primary Care For: no one Caregiver if needed: child(emmanuel), adult Quality of Family relationships: involved, supportive Community Resources being provided currently: other (see comments) (receives [facility] services at home (1xweekly)) Behavioral Health History: [...] Specific Information: N/A Health/Prescription Coverage: Primary Insurance: SeeOn MANAGED MEDICARE Payor: SeeOn MANAGED MEDICARE / Plan: SeeOn MANAGED MEDICARE PPO / Product Type: *No Product type* / Secondary Insurance: N/A Prescription Coverage: Yes Preferred Pharmacy: [id number] - [place], [place] - [address] [place] [id number] [place] Status: Patient is a : No Primary Care Provider listed: Masood Pierson MD [phone] Patient/Caregiver Goals of Treatment: home when MR Potential Needs for Transition of Care: home health care Agency Referrals: Not Applicable I have met with the patient to: discuss discharge planning needs. provide the [facility], Office of Care Management letter from the Can Filling Room Sweeper pertaining to rehab referrals. provide a letter describing our affiliations within the [facility] and educate about their right to choose where referrals are sent. provide a list of Home Health Agencies / Durable Medical Equipment vendors which serve their preferred geographic area. provided patient with [facility] Star Quality Rating handout. They have requested referrals to: [facility] [address] [place] [address] Note routed to a Special Education Coordinator who will communicate referrals to facilities and [...] results. PO hydralazine added for BP control. wastewater analyst lab analyst sites remain C/D/I, ecchymosis unchanged th roughout shift. See flowsheet for I+O's and safety rounding. Patient is able to make needs known and call capps within reach. PLAN MOVING FORWARD: Monitor Tele, control CP and BP, NPO at MD for cath, monitor malthouse laborer sites, D/C Planning INDIVIDUALIZED FALL PREVENTION [...] AM EDT Office Visit Cardiology at [address] [place] [address] Izaiah Meyer MD [facility] [place] [address] Scheduled Referrals Name Type Priority Associated Diagnoses [...] [facility] Monocyte % 16.9 % [facility] Monocyte Abs 1.4(H) 0.3 - 0.9 x10(3)/mc L [facility] Eos % 3.7 % [facility] Eosinophils Abs 0.3 0.0 - 0.4 x10(3)/ L [facility] Basophil % 0.5 % [facility] Baso Absolute 0.0 0.0 - [...] HEMATOLOGY ORDERABLE S [facility] [place] [address] * (ABNORMAL) Hemogram (11/03/2023 3:46 AM EDT) [...] [facility]ICAL [facility]ENTER [facility] NRBC% auto 0.0 % [facility] NRBC Absolute 0.000 0.000 - 0.000 x10(3)/mc L [facility] Blood 11/03/2023 3:46 AM EDT 11/03/2023 4:11 AM EDT Narrative Resulting Agency Comment Spec In Lab Qamar Gallardo MD HEMATOLOGY ORDERABLE S Performing Organization Address City/[facility]/ZIP Co de Phone Number [facility] [place] [address] * Phosphorus (11/03/2023 3:46 AM EDT) Pathologist [facility] Phosphorus 3.2 2.5 - 4.5 mg/dL [facility] Comment:result rechecked-KS Blood 11/03/2023 3:46 AM EDT 11/03/2023 4:11 AM EDT Narrative Resulting Agency Comment Spec In Lab Rosa oCrnejo MD CHEMISTRY ORDERABLE S Performing Organization Address [facility] Co de Phone Number [facility] [place] [address] * Magnesium (11/03/2023 3:46 AM EDT) [facility] Magnesium 0.90 0.69 - 1.07 mmol/L [facility] Blood 11/03/2023 3:46 AM EDT 11/03/2023 4:11 AM EDT Narrative Resulting Agency Comment Spec In Lab Rosa Cornejo MD CHEMISTRY ORDERABLE S Performing Organization Address [facility] Co de Phone Number [facility] [place] [place] [address] * (ABNORMAL) Basic Metabolic Panel (non-fasting) (11/03/2023 3:46 AM EDT) Pathologist [facility] Glucose 105 65 - 199 mg/dL [facility] [...] CHEMISTRY ORDERABLE S [facility] [place] [place] [address] * EKG 12 Lead (11/02/2023 12:44 PM EDT) Ventricular rate 83 BPM MUSE SYSTEM Atrial Rate 83 BPM MUSE SYSTEM P-R Interval 216 ms MUSE SYSTEM QRS Duration 90 ms MUSE SYSTEM Q-T Interval 384 ms MUSE SYSTEM QTC Calculated (Bezet) 451 ms MUSE SYSTEM Calculated P [place] 92 degrees MUSE SYSTEM Calculated R [place] -51 degrees MUSE SYSTEM Calculated T [place] -33 degrees MUSE SYSTEM INTERPRETATION Sinus rhythm with 1st degree A-V block with Premature atrial complexes Left axis deviation Moderate voltage criteria for LVH, may be normal variant ( R in aVL , [place] product ) Anterolatera l infarct (cited on or before 01-NOV-2023) Abnormal ECG When compared with ECG of 01-NOV-2023 22:10, Premature atrial complexes are now Present [place] interval has increased Vent. rate has decreased [...] MD URINE ORDERABLES [facility] [place] [address] * (ABNORMAL) Urinalysis with reflex Culture (11/02/2023 [...] CENTER LABORATORY Leukocytes, Urine Dipstick Small(A) Negative [facility] Appearance, Urine Dipstick Cloudy(A) Clear [facility] Specific [place] Urine Automated >=1.030(A) 1.005 - 1.030 [facility] Color, Urine Dipstick Dark Yellow Yellow [facility] Reflex to Culture Yes [facility] Clean Catch Urine 11/02/2023 11:40 AM EDT 11/02/2023 12:04 PM EDT Narrative Resulting Agency Comment Spec In Lab Rosa Hugo MD URINE ORDERABLES [facility] [place] [place] [address] * Respiratory Panel PCR (11/02/2023 10:15 AM EDT) Respiratory Panel Source EVENT OPERATIONS MANAGER Swab [facility] Respiratory Panel PCR Negative Negative [facility] Comment: Respiratory Panels are performed on the myThings, using multiplexed PCR nucleic acid detection. ??Negative [...] performed using the BioFire Respiratory Panel 2.1 (NormOxys) as authorized by the FDA issued Emergency Use Authorization (EUA). This panel also tests for multiple other viral and bacterial pathogens. This assay is intended for In-vitro Diagnostic (IVD) use with nasopharyngeal swabs in viral transport media. The assay is performed based on the instructions for use and additional guidance provided by the FDA. Testing is performed in laboratories within the [facility], each of which is certified under [...] fact sheets at the following FDA website: https://www.fda.gov/medical-devices/yunizsmgyki-hhyccem-0454-zvfyx-22-xqphddcgv- use-a jkeidvsuapqpl-crqdxcz-nqdmhqk/vtklf-cbpewxqvxqr-hivu Human Metapneumovirus Not Detected Not Detected [facility] [...] ERAL ORDERABLES [facility] [place] [address] * XR Chest One View (11/02/2023 2:51 AM EDT) WORKSTATION ID [id number] RAD Anatomical Region Laterality Modality Chest N/A [...] have questions please contact the health care giver that requested your imaging first. ? Electronically signed by: Omaira Tran MD, [facility] ([phone]), at 11/02/2023 4:56 AM Narrative 11/02/2023 4:56 [...] who have questions please contactthe health care giver that requested your imaging first. Electronically signed by: Omaira Tran MD, [facility]([phone]), at 11/02/2023 4:56 AM Rosa Hugo MD IMG DX ORDERABLES * (ABNORMAL) Differential, Automated (11/02/2023 12:35 AM EDT) Neutrophil % 76.5 % [facility] Neutrophil Absolute 7.69(H) 1.70 - 6.10 x10(3)/mc L [facility] Lymph % 8.3 % [facility] Lymphocytes Abs 0.8(L) 0.9 - 3.2 x10(3)/mc L [facility] Monocyte % 12.9 % [facility] Monocyte Abs 1.3(H) 0.3 - 0.9 x10(3)/mc L [facility] Eos % 1.4 % [facility] Eosinophils Abs 0.1 0.0 - 0.4 x10(3)/mc L [facility] Basophil % 0.4 % [facility] Baso Absolute 0.0 0.0 - [...] HEMATOLOGY ORDERABLE S [facility] [place] [address] * (ABNORMAL) Hemogram (11/02/2023 12:35 AM EDT) [...] [facility]ICAL [facility]ENTER [facility] NRBC% auto 0.0 % [facility] NRBC Absolute 0.000 0.000 - 0.000 x10(3)/mc L [facility] Blood 11/02/2023 12:3 5 AM EDT 11/02/2023 12:43 AM EDT Narrative Resulting Agency Comment Spec In Lab Qamar Gallardo MD HEMATOLOGY ORDERABLE S [facility] [place] [address] * (ABNORMAL) Phosphorus (11/02/2023 12:35 AM EDT) Phosphorus 1.6(L) 2.5 - 4.5 mg/dL [facility] Blood 11/02/2023 12:3 5 AM EDT 11/02/2023 12:43 AM EDT Narrative Resulting Agency Comment Spec In Lab Rosa Cornejo MD CHEMISTRY ORDERABLE S Performing Organization Address City/[facility]/ZIP Co de Phone Number [facility] [place] [address] * Magnesium (11/02/2023 12:35 AM EDT) Magnesium 0.87 0.69 - 1.07 mmol/L [facility] Blood 11/02/2023 12:3 5 AM EDT 11/02/2023 12:43 AM EDT Narrative Resulting Agency Comment Spec In Lab Rosa Cornejo MD CHEMISTRY ORDERABLE S Performing Organization Address City/[facility]/ZIP Co de Phone Number [facility] [place] [address] * Basic Metabolic Panel (non-fasting) (11/02/2023 12:35 [...] CHEMISTRY ORDERABLE S [facility] [place] [address] * Blood culture (11/02/2023 12:35 AM EDT) Blood Culture No growth at 5 days. [facility] Blood 11/02/2023 12:3 5 AM EDT 11/02/2023 1:55 AM EDT Comment:#2 site ukn Narrative Resulting Agency Comment Spec In Lab Rosa Hugo MD MICROBIOLOGY - BLO OD ORDERABLES Performing Organization Address City/[facility]/ZIP Co de Phone Number [facility] [place] [place] [address] * Blood culture (11/02/2023 12:15 AM EDT) Blood Culture No growth at 5 days. [facility] Blood 11/02/2023 12:1 5 AM EDT 11/02/2023 1:54 AM EDT Comment:#1site unk Narrative Resulting Agency Comment Spec In Lab Rosa Hugo MD MICROBIOLOGY - BLO OD ORDERABLES Performing Organization Address [facility] Co de Phone Number [facility] [place] [address] * EKG 12 Lead (11/01/2023 10:10 PM EDT) Ventricular rate 139 BPM MUSE SYSTEM Atrial Rate 139 BPM MUSE SYSTEM P-R Interval 168 ms MUSE SYSTEM QRS Duration 84 ms MUSE SYSTEM Q-T Interval 286 ms MUSE SYSTEM QTC Calculated (Bezet) 435 ms MUSE SYSTEM Calculated R [place] -59 degrees MUSE SYSTEM Calculated T [place] -27 degrees MUSE SYSTEM INTERPRETATION Mid-RP tachycardia, consider sinus tachycardia or SVT Left axis deviation Moderate voltage criteria for LVH, may be normal variant ( R in aVL , [place] product ) Inferior infarct (cited on or before 01-NOV-2023) Anterolateral infarct (cited on or before 01-NOV-2023) Abnormal ECG When compared with ECG of 01-NOV-2023 15:22, Vent. rate Although rate has increased Serial changes of Anterior infarct Present I personally reviewed the tracing and edited the fellows interpretation Confirmed by fellow MD Bowen Ashley ([id number]) on 11/04/2023 7:57:50 AM Confirmed by MD Carrillo Danette ([id number]) on 11/04/2023 4:32:03 PM MUSE SYSTEM 11/01/2023 [...] [facility] NR[facility]% auto 0.0 % [facility] NRBC Absolute 0.000 0.000 - 0.000 x10(3)/mc L [facility] Blood 11/01/2023 10:0 6 PM EDT 11/01/2023 10:22 PM EDT Narrative Resulting Agency Comment Spec In Lab Rosa Hugo MD HEMATOLOGY ORDERAB LES [facility] [place] [id number] * POCT Glucose (11/01/2023 5:59 PM EDT) Glucose, POC 104 65 - 199 mg/dL [facility] Comment: Supplemental ranges: <140 mg/dL before meals <180 mg/dL all other times of the day Blood 11/01/2023 5:59 PM EDT 11/01/2023 5:59 PM EDT Rosa Hugo MD POINT OF CARE TEST ORDERABLES [facility] [place] [address] * POCT Glucose (11/01/2023 5:35 PM EDT) Glucose, POC 85 65 - 199 mg/dL [facility] Comment: Supplemental ranges: <140 mg/dL before meals <180 mg/dL all other times of the day Blood 11/01/2023 5:35 PM EDT 11/01/2023 5:35 PM EDT Rosa Hugo MD POINT OF CARE TEST ORDERABLES [facility] [place] [address] * EKG 12 Lead (11/01/2023 3:22 PM EDT) Ventricular rate 59 BPM MUSE SYSTEM Atrial Rate 59 BPM MUSE SYSTEM P-R Interval 220 ms MUSE SYSTEM QRS Duration 94 ms MUSE SYSTEM Q-T Interval 428 ms MUSE SYSTEM QTC Calculated (Bezet) 423 ms MUSE SYSTEM Calculated P [place] 76 degrees MUSE SYSTEM Calculated R Ages [place] -50 degrees MUSE SYSTEM Calculated T Ages [place] -59 degrees MUSE SYSTEM INTERPRETATION Sinus bradycardia [...] Modality Other Narrative 11/02/2023 4:57 PM EDT ?[facility] ? Cardiac Catheterization/Intervention Report ? Patient Name: Adin Santos. ? Procedure Date: 11/01/2023 ? A #: [id number] ? Primary Physician: Rosa Dewey I ? Case #: [id number] ? File Name: [id number] ? Catheterization Order Number: [id number] ? [facility] ? Final Report [place], [place] ? Patient Name: ? Adin M. Goguen ?ID#: ?[id number] ? : ?1940 ? Procedure Date: ? [...] was designated as ASA Class III. The [facility] clinical ?frailty scale is 4: Vulnerable. [...] procedure was Urgent. The indication for ?the malthouse laborer visit is ACS greater than 24 [...] premounted ? 3.50 x 15 mm [place] (RADHA) was deployed with a maximum ? [...] ? A premounted 3.50 x 15 mm [place] (RADHA) was deployed ? with a maximum [...] dose administered prior to arrival in the malthouse laborer. ?Recommended anti-platelet/anti-thrombotic regimen: ?Continue aspirin 81 mg daily for indefinitely. ?Continue clopidogrel 75 mg daily for 12 months then stop. ?These recommendations are made at the time of the intervention. Patient ?and provider preferences or a changing clinical situation may require ?modification of this regimen. Consult [facility] Interventional Cardiology for ?questions. ?The 1 year [...] Procedure Note Rosa Dewey MD - 12/12/2023 [facility] Cardiac Catheterization/Intervention Report Patient Name: Adin Santos Procedure Date: 11/01/2023 A #: [id number] Primary Physician: Rosa Dewey I Case #: [id number] File Name: [id number] Catheterization Order Number: [id number] [facility] FinalReport [place], [place] Patient Name: Adin Santos ID#:[id number] :1940 Procedure Date: November 01, 2023 Case [...] diagnostic procedure was Urgent. The indicationfor the malthouse laborer visit is ACS greater than 24 [...] 14 atmospheres. Apremounted 3.50 x 15 mm [place] (RADHA) was deployed with amaximum inflation pressure [...] The lesion was predilated with a 3.00mm [id number] MM balloon with a maximum inflation pressure of 14atmospheres. A premounted 3.50 x 15 mm [place] (RADHA) wasdeployed with a maximum inflation pressure [...] dose administered prior to arrival in the malthouse laborer. Recommended anti-platelet/anti-thrombotic regimen: Continue aspirin 81 mg daily for indefinitely. Continue clopidogrel 75 mg daily for 12 months then stop. These recommendations are made at the time of the intervention.Patient and provider preferences or a changing clinical situation mayrequire modification of this regimen. Consult [facility] Interventional Cardiologyfor questions. The 1 year bleeding [...] Glucose (11/01/2023 7:06 AM EDT) Pathologist [facility] Glucose, POC 93 65 - 199 mg/dL [facility] Comment: Supplemental ranges: <140 mg/dL before meals <180 mg/dL all other times of the day Blood 11/01/2023 7:06 AM EDT 11/01/2023 7:06 AM EDT Jean Laboy MD POINT OF CARE TEST O RDERABLES [facility] [place] [address] * (ABNORMAL) Differential, Automated (11/01/2023 3:09 AM EDT) Neutrophil % 63.9 % [facility] Neutrophil Absolute 5.54 1.70 - 6.10 x10(3)/mc L [facility] Lymph % 20.0 % [facility] Lymphocytes Abs 1.7 0.9 - 3.2 x10(3)/mc L [facility] Monocyte % 11.9 % [facility] Monocyte Abs 1.0(H) 0.3 - 0.9 x10(3)/ L [facility] Eos % 3.2 % [facility] Eosinophils Abs 0.3 0.0 - 0.4 x10(3)/ L [facility] Basophil % 0.5 % [facility] Baso Absolute 0.0 0.0 - [...] Gran Absolute 0.04 0.00 - 0.04 x10(3)/[facility] LABORATORY Blood 11/01/2023 3:09 AM EDT 11/01/2023 3:29 AM EDT Narrative Resulting Agency Comment Spec In Lab Qamar Gallardo MD HEMATOLOGY ORDERABLE S [facility] [place] [address] * (ABNORMAL) Hemogram (11/01/2023 3:09 AM EDT) White Blood Cell 8.7 4.0 - 9.5 x10(3)/ L [facility] Red Blood Cell 3.72(L) 4.00 - 5.21 x10(6)/[facility] Hemoglobin 12.5 11.7 - 15.5 g/dL [...] MEDICAL CENTER LABORATORY NRBC% auto 0.0 % [facility] NRBC Absolute 0.000 0.000 - 0.000 x10(3)/mc L [facility] Blood 11/01/2023 3:09 AM EDT 11/01/2023 3:29 AM EDT Narrative Resulting Agency Comment Spec In Lab Qamar Gallardo MD HEMATOLOGY ORDERABLE S [facility] [place] [place] [address] * Phosphorus (11/01/2023 3:09 AM EDT) Phosphorus 2.5 2.5 - 4.5 mg/dL [facility] Blood 11/01/2023 3:09 AM EDT 11/01/2023 3:29 AM EDT Narrative Resulting Agency Comment Spec In Lab Rosa Cornejo MD CHEMISTRY ORDERABLE S [facility] [place] [place] [address] * Magnesium (11/01/2023 3:09 AM EDT) Magnesium 0.82 0.69 - 1.07 mmol/L [facility] Blood 11/01/2023 3:09 AM EDT 11/01/2023 3:29 AM EDT Narrative Resulting Agency Comment Spec In Lab Rosa Cornejo MD CHEMISTRY ORDERABLE S [facility] [place] [address] * (ABNORMAL) Basic Metabolic Panel (non-fasting) (11/01/2023 [...] MD CHEMISTRY ORDERABLE S Performing Organization Address City/[facility]/ZIP Co de Phone Number [facility] [place] [address] * (ABNORMAL) Troponin (10/31/2023 2:46 PM EDT) [...] troponin value can be found in the [facility] Test Catalog Troponin - [facility] Test Catalog Reference: Fourth [place] Definition of Myocardial Infarction. Journal of the [place] [employer] 2018;72:7674-2632 Blood 10/31/2023 2:46 PM EDT 10/31/2023 2:55 PM EDT Narrative Resulting Agency Comment Spec In Lab Jean Laboy MD CHEMISTRY ORDERABLES Performing Organization Address City/[facility]/ZIP Co de Phone Number [facility] [place] [address] * EKG 12 Lead (10/31/2023 1:07 PM EDT) Ventricular rate 54 BPM MUSE SYSTEM Atrial Rate 54 BPM MUSE SYSTEM P-R Interval 218 ms MUSE SYSTEM QRS Duration 92 ms MUSE SYSTEM Q-T Interval 540 ms MUSE SYSTEM QTC Calculated (Bezet) 512 ms MUSE SYSTEM Calculated P [place] 85 degrees MUSE SYSTEM Calculated R Ages [place] -44 degrees MUSE SYSTEM Calculated T [place] -69 degrees MUSE SYSTEM INTERPRETATION Sinus bradycardia with 1st degree A-V block Left axis deviation Moderate voltage criteria for LVH, may be normal variant ( R in aVL , [place] product ) T wave abnormality, consider inferolateral [...] Troponin (10/31/2023 11:37 AM EDT) Pathologist [facility] Troponin-T, High Sensitivity 580(H) <=14 ng/L [facility] [...] troponin value can be found in the [facility] Test Catalog Troponin - [facility] Test Catalog Reference: Fourth [place] Definition of Myocardial Infarction. Journal of the [place] [employer] 2018;72:1624-3310 Blood 10/31/2023 11:3 7 AM EDT 10/31/2023 11:50 AM EDT Narrative Resulting Agency Comment Spec In Lab Rosa Cornejo MD CHEMISTRY ORDERABLE S [facility] [place] [address] * ECHO COMPLETE (10/31/2023 8:52 AM EDT) Anatomical Region Laterality Modality Cardiac Other 10/31/2023 7:57 AM EDT Narrative 10/31/2023 9:45 AM EDT [address] [place] [address] ? Echocardiogram Report Name: TOM ADIN Dorene ? Study Date: 10/31/2023 07:57 AMBP: 106/76 mmHg ? Patient Location: [address] : 1940 ? Height: 163 cm ? Account: [id number] Age: 83 yrs ? Weight: 76 kg Gender: Female ?BSA: 1.8 m2 Ordering Physician: ROSA DEWEY Referring Physician: OMAIRA GIRON Performed By: HAFSA Carmichael Reason For Study: STEMI Interpreting Fellow: Raymond Warren. Exam Location: [facility]. Interpretation Summary -The left ventricle is [...] is no prior echocardiogram for comparison. Procedure Complete-98781. Satisfactory quality. There is sinus bradycardia. Left [...] Note Edgard Wang MD - 10/31/2023 [address] [place] [address] Echocardiogram Report Name: ADIN SANTOS Study Date: 407:57 AMBP: 106/76 mmHg Patient Location: [address] : 1940 Height: 163 cm Account: [id number] Age: 83 yrs Weight: 76 kg Gender: Female BSA: 1.8 m2 Ordering Physician: ROSA DEWEY Referring Physician: OMAIRA GIRON Performed By: HAFSA Carmichael Reason For Study: STEMI Interpreting Fellow: Raymond Warren. Exam Location: [facility]. Interpretation Summary -The left ventricle is [...] is no prior echocardiogram for comparison. Procedure Complete-[id number]. Satisfactory quality. There is sinus bradycardia. Left [...] * (ABNORMAL) Troponin (10/31/2023 8:51 AM EDT) [facility] Troponin-T, High Sensitivity 571(H) <=14 ng/L [facility] [...] troponin value can be found in the [facility] Test Catalog Troponin - [facility] Test Catalog Reference: Fourth [place] Definition of Myocardial Infarction. Journal of the [place] [employer] 2018;72:5834-9438 Blood 10/31/2023 8:51 AM EDT 10/31/2023 9:12 AM EDT Narrative Resulting Agency Comment Spec In Lab Rosa Cornejo MD CHEMISTRY ORDERABLE S Performing Organization Address [facility] Co de Phone Number [facility] [place] [address] * CARDIAC CATHETERIZATION (10/31/2023 8:10 AM EDT) Anatomical Region Laterality Modality Other Narrative 11/07/2023 9:42 AM EDT ?[facility] ? Cardiac Catheterization/Intervention Report ? Patient Name: Adin Santos ? Procedure Date: 10/30/2023 ? A #: [id number] ? Primary Physician: Rosa Dewey I ? Case #: [id number] ? File Name: [id number] ? Catheterization Order Number: [id number] ? [facility] ? Final Report [place], [place] ? Patient Name: ? Adin M. Goguen ?ID#: ?[id number] ? : ?1940 ? Procedure Date: ? [...] was designated as ASA Class III. The [facility] clinical frailty scale ?is 5: Mildly [...] procedure was Emergent. The indication for ?the malthouse laborer visit is ACS less than or [...] ? A premounted 4.00 x 38 mm [place] (RADHA) was deployed ? with a maximum [...] dose administered prior to arrival in the malthouse laborer. ?Recommended anti-platelet/anti-thrombotic regimen: ?Continue aspirin 81 mg daily for 12 months then stop. ?Continue clopidogrel 75 mg daily for indefinitely. ?These recommendations are made at the time of the intervention. Patient ?and provider preferences or a changing clinical situation may require ?modification of this regimen. Consult [facility] Interventional Cardiology for ?questions. ? Conclusions: ?* [...] Procedure Note Rosa Dewey MD - 12/05/2023 [facility] Cardiac Catheterization/Intervention Report Patient Name: Adin Santos Procedure Date: 10/30/2023 A #: [id number] Primary Physician: Rosa Dewey I Case #: [id number] File Name: [id number] Catheterization Order Number: [id number] [facility] FinalReport [place], [place] Patient Name: Adin Santos ID#:[id number] :1940 Procedure Date: October 30, 2023 Case [...] was designated as ASA Class III. The [facility] clinical frailtyscale is 5: Mildly Frail. Diagnostic Tests: Electrocardiography: EKG was assessed by ECG. EKG was Abnormal. EKG showed STDeviation >= 0.5 mm, other abnormality and dynamic EKG changes. Medications Prior to Procedure: Aspirin, Angiotensin II Receptor Rodrick, Beta Rodrick andStatin. Indications for Diagnostic Cath: The priority of the diagnostic procedure was Emergent. Theindication for the malthouse laborer visit is ACS less than or [...] A premounted 4.00 x 38 mm [place] (RADHA) wasdeployed with a maximum inflation pressure [...] dose administered prior to arrival in the malthouse laborer. Recommended anti-platelet/anti-thrombotic regimen: Continue aspirin 81 mg daily for 12 months then stop. Continue clopidogrel 75 mg daily for indefinitely. These recommendations are made at the time of the intervention.Patient and provider preferences or a changing clinical situation mayrequire modification of this regimen. Consult [facility] Interventional Cardiologyfor questions. Conclusions: * Two vessel [...] * (ABNORMAL) Troponin (10/31/2023 4:21 AM EDT) [facility] Troponin-T, High Sensitivity 457(H) <=14 ng/L [facility] [...] troponin value can be found in the [facility] Test Catalog Troponin - [facility] Test Catalog Reference: Fourth [place] Definition of Myocardial Infarction. Journal of the [place] [employer] 2018;72:0972-9731 Blood 10/31/2023 4:21 AM EDT 10/31/2023 4:30 AM EDT Narrative Resulting Agency Comment Spec In Lab Rosa Cornejo MD CHEMISTRY ORDERABLE S Performing Organization Address City/State/[facility] Co de Phone Number [facility] [place] [address] * (ABNORMAL) Differential, Automated (10/31/2023 3:05 AM EDT) Neutrophil % 71.7 % [facility] Neutrophil Absolute 8.21(H) 1.70 - 6.10 x10(3)/mc L [facility] Lymph % 16.9 % [facility] Lymphocytes Abs 1.9 0.9 - 3.2 x10(3)/mc L [facility] Monocyte % 9.4 % [facility] Monocyte Abs 1.1(H) 0.3 - 0.9 x10(3)/mc L [facility] Eos % 1.3 % [facility] Eosinophils Abs 0.2 0.0 - 0.4 x10(3)/mc L [facility] Basophil % 0.4 % [facility] Baso Absolute 0.0 0.0 - [...] HEMATOLOGY ORDERABLE S [facility] [place] [place] [address] * (ABNORMAL) Hemogram (10/31/2023 3:05 AM EDT) [...] CENTER LABORATORY NRBC% auto 0.0 % [facility] NRBC Absolute 0.000 0.000 - 0.000 x10(3)/mc L [facility] Blood 10/31/2023 3:05 AM EDT 10/31/2023 3:13 AM EDT Narrative Resulting Agency Comment Spec In Lab Qamar Gallardo MD HEMATOLOGY ORDERABLE S Performing Organization Address [facility] de Phone Number [facility] [place] [address] * (ABNORMAL) APTT (10/31/2023 3:05 AM EDT) [...] MD HEMATOLOGY ORDERABL ES Performing Organization Address [facility] de Phone Number [facility] [place] [address] * (ABNORMAL) Prothrombin Time (10/31/2023 3:05 AM [...] HEMATOLOGY ORDERABL ES [facility] [place] [place] [address] * (ABNORMAL) Differential, Automated (10/31/2023 1:37 AM EDT) Neutrophil % 71.1 % [facility] Neutrophil Absolute 7.53(H) 1.70 - 6.10 x10(3)/mc L [facility] Lymph % 18.0 % [facility] Lymphocytes Abs 1.9 0.9 - 3.2 x10(3)/ L [facility] Monocyte % 8.7 % [facility] Monocyte Abs 0.9 0.3 - 0.9 x10(3)/mc L [facility] Eos % 1.6 % [facility] Eosinophils Abs 0.2 0.0 - 0.4 x10(3)/mc L [facility] Basophil % 0.4 % [facility] Baso Absolute 0.0 0.0 - [...] HEMATOLOGY ORDERABLE S [facility] [place] [place] [address] * (ABNORMAL) Hemogram (10/31/2023 1:37 AM EDT) [...] MEDICAL CENTER LABORATORY NRBC% auto 0.0 % [facility] NRBC Absolute 0.000 0.000 - 0.000 x10(3)/mc L [facility] Blood 10/31/2023 1:37 AM EDT 10/31/2023 1:46 AM EDT Narrative Resulting Agency Comment Spec In Lab Qamar Gallardo MD HEMATOLOGY ORDERABLE S [facility] [place] [place] [address] * Phosphorus (10/31/2023 1:37 AM EDT) Phosphorus 3.2 2.5 - 4.5 mg/dL [facility] Blood 10/31/2023 1:37 AM EDT 10/31/2023 1:46 AM EDT Narrative Resulting Agency Comment Spec In Lab Rosa Cornejo MD CHEMISTRY ORDERABLE S Performing Organization Address City/[facility]/ZIP Co de Phone Number [facility] [place] [place] [address] * Magnesium (10/31/2023 1:37 AM EDT) Magnesium 0.83 0.69 - 1.07 mmol/L [facility] Blood 10/31/2023 1:37 AM EDT 10/31/2023 1:46 AM EDT Narrative Resulting Agency Comment Spec In Lab Rosa Cornejo MD CHEMISTRY ORDERABLE S Performing Organization Address City/[facility]/ZIP Co de Phone Number [facility] [place] [place] [address] * Basic Metabolic Panel (non-fasting) (10/31/2023 1:37 [...] CHEMISTRY ORDERABLE S [facility] [place] [place] [address] * (ABNORMAL) Troponin (10/31/2023 1:37 AM EDT) [...] troponin value can be found in the [facility] Test Catalog Troponin - [facility] Test Catalog Reference: Fourth [place] Definition of Myocardial Infarction. Journal of the [place] [employer] 2018;72:3709-8704 Blood 10/31/2023 1:37 AM EDT 10/31/2023 1:46 AM EDT Narrative Resulting Agency Comment Spec In Lab Rosa Cornejo MD CHEMISTRY ORDERABLE S Performing Organization Address City/[facility]/[place] [address] * EKG 12 Lead (10/31/2023 1:20 AM EDT) Ventricular rate 52 BPM MUSE SYSTEM Atrial Rate 52 BPM MUSE SYSTEM P-R Interval 224 ms MUSE SYSTEM QRS Duration 108 ms MUSE SYSTEM Q-T Interval 544 ms MUSE SYSTEM QTC Calculated (Bezet) 505 ms MUSE SYSTEM Calculated P [place] 90 degrees MUSE SYSTEM Calculated R [place] -57 degrees MUSE SYSTEM Calculated T [place] -63 degrees MUSE SYSTEM INTERPRETATION Sinus bradycardia [...] (Bezet) 497 ms MUSE SYSTEM Calculated P [place] 75 degrees MUSE SYSTEM Calculated R [place] -53 degrees MUSE SYSTEM Calculated T [place] -57 degrees MUSE SYSTEM INTERPRETATION Sinus bradycardia [...] View (10/30/2023 10:10 PM EDT) WORKSTATION ID [id number] DH RAD Anatomical Region Laterality Modality Chest [...] and low lung volumes. Findings similar to worm raiser radiograph from CT 10/30/2023. Thank you for letting us participate in the care of this patient. ??If you are a health care provider and have any questions regarding this report, please contact the number below. ??For patients who have questions please contact the health care giver that requested your imaging first. ? Electronically signed by: Wilson Mccartney MD, [facility] ([phone]), at 10/30/2023 10:32 PM Narrative 10/30/2023 10:32 [...] and low lung volumes. Findings similar to worm raiser radiograph from CT 10/30/2023. Thank you for letting us participate in the care of this patient. If youare a health care provider and have any questions regarding this report,please contact the number below. For patients who have questions please contactthe health care giver that requested your imaging first. Rosa Cornejo MD IMG DX ORDERABLES * Green Tube HOLD (10/30/2023 10:05 PM EDT) [facility] Green Hold Sample in lab. [facility] Blood Venous Draw / Unknown 10/30/2023 10:05 PM EDT 10/30/2023 10:13 PM EDT Qamar Gallardo MD CHEMISTRY ORDERABLES [facility] [place] [place] [address] * (ABNORMAL) Differential, Automated (10/30/2023 10:05 PM EDT) Pathologist [facility] Neutrophil % 76.6 % [facility] Neutrophil Absolute 6.94(H) 1.70 - 6.10 x10(3)/mc L [facility] Lymph % 15.4 % [facility] Lymphocytes Abs 1.4 0.9 - 3.2 x10(3)/mc L [facility] Monocyte % 6.1 % [facility] Monocyte Abs 0.6 0.3 - 0.9 x10(3)/mc L [facility] Eos % 1.1 % [facility] Eosinophils Abs 0.1 0.0 - 0.4 x10(3)/mc L [facility] Basophil % 0.6 % [facility] Baso Absolute 0.0 0.0 - [...] MD HEMATOLOGY ORDERABLE S Performing Organization Address City/State/[facility] Co de Phone Number [facility] [place] [place] [address] * (ABNORMAL) Hemogram (10/30/2023 10:05 PM EDT) [...] MEDICAL CENTER LABORATORY NRBC% auto 0.0 % [facility] NRBC Absolute 0.000 0.000 - 0.000 x10(3)/mc L [facility] Blood 10/30/2023 10:0 5 PM EDT 10/30/2023 10:12 PM EDT Narrative Resulting Agency Comment Spec In Lab Qamar Gallardo MD HEMATOLOGY ORDERABLE S Performing Organization Address City/[facility]/ZIP Co de Phone Number [facility] [place] [place] [address] * Hemoglobin A1c (10/30/2023 10:05 PM EDT) [...] CHEMISTRY ORDERABLE S [facility] [place] [address] * Lipid Panel (Reflex Direct LDL) (10/30/2023 10:05 PM EDT) [facility] Cholesterol, Total 218 mg/dL Dorene [facility] Comment: Desirable: ? <200 mg/dL Borderline High: 200-239 mg/dL Higher: ?>wc=926 mg/dL Triglyceride 46 mg/dL [facility] Comment: Normal: ?<150 mg/dL Borderline High: 150-199 mg/dL High: ?200-499 mg/dL Very High: ? >al=431 mg/dL HDL Cholesterol 64 mg/dL [facility] Comment: Females: High Risk: <50 mg/dL Males: High Risk: <40 mg/dL LDL Cholesterol 145 mg/dL [facility] Comment: Desirable: ? <100 mg/dL Above Desirable: 100-129 mg/dL Borderline High: 130-159 mg/dL High: ?160-189 mg/dL Very High: ? >mi=807 mg/dL Lipid Interpretation See Note [facility] [...] individuals with atherosclerotic cardiovascular disease (ASCVD)or LDL >xz=312 mg/dL, use a high-intensity statin (40-80 mg [...] MD CHEMISTRY ORDERABLE S Performing Organization Address [facility] Co de Phone Number [facility] [place] [address] * TSH [place] (10/30/2023 10:05 PM EDT) Thyroid Stimulating Hormone 3.35 0.27 - 4.20 mcIU/mL [facility] Comment: Reference Interval (mcIU/mL): Females: ??First Trimester: 0.23-3.88 ??Second Trimester: 0.22-3.90 ??Third Trimester: 0.44-4.66 Blood 10/30/2023 10:0 5 PM EDT 10/30/2023 10:12 PM EDT Narrative Resulting Agency Comment Spec In Lab Rosa Cornejo MD CHEMISTRY ORDERABLE S Performing Organization Address [facility]/ZIP Co de Phone Number [facility] [place] [address] * pro-Brain Natriuretic Peptide (10/30/2023 10:05 PM EDT) NT-proBNP 375 <=449 pg/mL [facility] Blood 10/30/2023 10:0 5 PM EDT 10/30/2023 10:12 PM EDT Narrative Resulting Agency Comment Spec In Lab Rosa Cornejo MD CHEMISTRY ORDERABLE S [facility] [place] [address] * (ABNORMAL) Comprehensive metabolic panel (non-fasting) (10/30/2023 10:05 PM EDT) Pathologist [facility] Glucose 121 65 - 199 mg/dL [facility] [...] MD CHEMISTRY ORDERABLE S Performing Organization Address City/[facility]/ZIP Co de Phone Number [facility] [place] [place] [address] * Phosphorus (10/30/2023 10:05 PM EDT) Phosphorus 3.3 2.5 - 4.5 mg/dL [facility] Blood 10/30/2023 10:0 5 PM EDT 10/30/2023 10:12 PM EDT Narrative Resulting Agency Comment Spec In Lab Rosa Cornejo MD CHEMISTRY ORDERABLE S [facility] [place] [place] [address] * Magnesium (10/30/2023 10:05 PM EDT) Magnesium 0.86 0.69 - 1.07 mmol/L [facility] Blood 10/30/2023 10:0 5 PM EDT 10/30/2023 10:12 PM EDT Narrative Resulting Agency Comment Spec In Lab Rosa Cornejo MD CHEMISTRY ORDERABLE S Performing Organization Address City/[facility]/ZIP Co de Phone Number [facility] [place] [place] [address] * (ABNORMAL) Troponin (10/30/2023 10:05 PM EDT) [...] troponin value can be found in the [facility] Test Catalog Troponin - [facility] Test Catalog Reference: Fourth [place] Definition of Myocardial Infarction. Journal of the [place] [employer] 2018;72:5713-4777 Blood 10/30/2023 10:0 5 PM EDT 10/30/2023 10:12 PM EDT Narrative Resulting Agency Comment Spec In Lab Rosa Cornejo MD CHEMISTRY ORDERABLE S Performing Organization Address City/[facility]/ZIP Co de Phone Number [facility] [place] [place] [address] * EKG 12 Lead (10/30/2023 8:21 PM EDT) Ventricular rate 49 BPM MUSE SYSTEM Atrial Rate 49 BPM MUSE SYSTEM P-R Interval 230 ms MUSE SYSTEM QRS Duration 96 ms MUSE SYSTEM Q-T Interval 526 ms MUSE SYSTEM QTC Calculated (Bezet) 475 ms MUSE SYSTEM Calculated P [place] 98 degrees MUSE SYSTEM Calculated R [place] -48 degrees MUSE SYSTEM Calculated T [place] -51 degrees MUSE SYSTEM INTERPRETATION Sinus bradycardia [...] - Reason: Transfer to a Procedural area)1548 ([facility] Unhold - Provider: Admin Adt) [id number] [...] - Reason: Transfer to a Procedural area)1548 ([facility] Unhold - Provider: Admin Adt) midazolam [...] documented as of this encounter Care Teams Coach Driver Relationship Specialty Start Date End Date Rosie Mathews MD [address] [place] [id number] PCP - General Family Medicine 11/25/17 11/23/23 documented as of this encounter
--- OUTSIDE RECORDS SUMMARY | 2024-02-24 19:54 | XMS_ITS | Encounter Summary ---
Author Organization [facility] [place] [address] Care Team Providers Care Hot Iron Worker Name Role Phone Rosie Mathews MD Primary Care Provider [phone] Reason for Visit * Auth/Cert (Routine) Specialty Diagnoses / Procedures Referred By Contac t Referred To Contact Diagnoses Unstable angina Chest pain NSTEMI Procedures CARDIAC CATHETERIZATION Rosa Dewey MD [facility] [place] [address] [facility] Referral ID Status Reason Start Date Expiration Date Visits Re quested Visits Authorized [id number] 1 1 Encounter Details Date Type Department Care Team (Late st Contact Info) Description 10/30/2023 4:25 PM EDT - 10/30/2023 5:27 PM EDT Surgery [place] [address] Rosa Dewey MD [facility] [address] [place], [place] [id number] CARDIAC CATHETERIZATION Social History Tobacco Use Types [...] [facility] [place] as a transfer from [facility] as a possible STEMI alert with acute onset chest pain. The patient reports that her symptoms initially began on Tuesday when she was walking to [facility] and experienced bilateral arm heaviness while walking with no other symptoms. Then, this afternoon shereports developing bilateral achy shoulder pain and nonradiating substernal left-sided chest pressure that was 7/10 in severity after coming home from restoration. The patient denies any associated fevers, chills, [...] the patient was taken directly to the Speech Pathology Teacher. Two lesions were discovered: one in the prox RCA (felt to almost be a [employer] but they were able to wire, balloon, [...] dose administered prior to arrival in the pie bakery laborer. Recommended anti-platelet/anti-thrombotic regimen: Continue aspirin 81 [...] low lung volumes. Findings similar to senior javascript engineer radiograph from CT 10/30/2023. Pending Studies [...] AM Izaiah Meyer MD Cardiology at [facility] Arrive at: [facility] [address] [phone] Future Orders Complete By Expires Referral to Cardiac Rehab [[id number] Custom] As directed Process Instructions: If no progress note charted, please enter Clinical details in comments. Scheduling Instructions: Questions: My question or request is: STEMI. Cardiac rehab at [facility]. Referral to Home Health [[id number] Custom] As directed Process Instructions: If no progress note charted, please enter Clinical details in comments. Scheduling Instructions: Comments: Please evaluate Adin Santos for admission to Home Health. [address] [place] [address] [place] [phone] (home) Date of : 1940 Inpatient DOCUMENTATION FOR VNA SERVICES (INCLUDING THOSE PATIENTS WITH MEDICARE COVERAGE REQUIRING HOME VNA SERVICES AND/OR HOSPICE SERVICES) PATIENT'S LOCATION: Adin Santos [address] [facility] [id number] (home) Cell: Telephone Information: Inside Sales's Name: self In discussion with the attending physician, it is certified that this patient is under their care and that they, or a Nurse Practitioner, Clinical Nurse specialist or Physician Road Conductor who is working directly with them, had [...] regarding health issues HOME HEALTH CARE AGENCY: [facility] [address] [place] [id number] START OF CARE: within 24-48 hours of [...] Mathews MD [address] / [facility] [address] . All A agencies which cover the [...] / Dr. Masood Pierson [address] [place] [address] 11/09/23 1:55 PM arrival for 2:10 PM appointment Pocket Maker: Izaiah Meyer MD [address] [place] [address] , 11/24/2023 10:40 AM Your Inpatient Medical Team at [facility] Name(s) of your inpatient provider(s): Attending physician: Rosa Hugo MD Resident physicians: Emile Robles MD; Elmer Tamez MD If you have non-emergent questions, prior to your follow-up visit call: Tuesday-Tuesday between the hours of 8AM-5PM please call the Cardiology Clinic [phone] to speak with a nurse. All other hours please call the Hospital Fish Cutting Machine Operator [phone] and ask to speak to the cardiology nurse on-call. Your Primary Care Provider Rosie Mathews MD [phone] For questions regarding this document or issues relating to this hospitalization on the Medical Service, please contact your inpatient physician through the [facility] Fish Cutting Machine Operator . Issues afterhours and on weekends will be handled by the Pocket Maker staff on-call. Associated attestation - Rosa Hugo [...] / Dr. Masood Pierson [address] [place] [address] 11/09/23 1:55 PM arrival for 2:10 PM appointment Pocket Maker: Izaiah Meyer MD [address] [place] [address] , 11/24/2023 10:40 AM Your Inpatient Medical Team at [facility] Name(s) of your inpatient provider(s): Attending physician: Rosa Hugo MD Resident physicians: Emile Robles MD; Elmer Tamez MD If you have non-emergent questions, prior to your follow-up visit call: Tuesday-Tuesday between the hours of 8AM-5PM please call the Cardiology Clinic [phone] to speak with a nurse. All other hours please call the Hospital Fish Cutting Machine Operator [phone] and ask to speak to the cardiology nurse on-call. Your Primary Care Provider Rosie Mathews MD [phone] documented in this encounter Medications at Time [...] [facility] [place] [facility] [place] a [facility] [...] Resident on Cardiology Service Cardiology S1 (Pager [phone]) Note written in conjunction with [facility] Medical Student, MS3 Associated attestation [...] Nirmala Webb - 11/01/2023 11:25 AM EDT Television And Radio Repairer Encounter Note Patient Name: Adin Santos : [id number] MR#: [id number] Admit Date: 10/30/2023 5:11 PM Hospital Day 2 days Narrative: Self initiated visit to patient for Spiritual support in a regular unit rounds. Assessment: Patient is in the bathroom at the time of this visit. Not a good time for Brick Handler visit. Intervention and Outcome: An attempted visit [...] [facility] [place] [facility] [place] low lung volumes. Findings similar to senior javascript engineer radiograph from CT 10/30/2023. Scheduled Medications: [MAR [...] [facility] [place] [facility] [...] Resident on Cardiology Service Cardiology S1 (Pager [phone]) Note written in conjunction with [facility] Medical Student, MS3 Associated attestation [...] [facility] [place] as a transfer from [facility] as a possible STEMI alert with acute onset chest pain. Active Problems: Active Hospital Problems Diagnosis Unstable angina Resolved Hospital Problems No resolved problems to display. 24 hr events: - Cath'd yesterday with lesion in the proximal RCA (initially thought it was [employer] but they were ableto wire, balloon and [...] low lung volumes. Findings similar to senior javascript engineer radiograph from CT 10/30/2023. TTE (10/30): Interpretation [...] [facility] [place] [facility] [...] Resident on Cardiology Service Cardiology S1 (Pager [phone]) Note written in conjunction with Cl[facility] Medical Student, MS3 Associated attestation [...] PCP: Rosie Mathews MD PCP phone number: [phone] Date of Admission: 10/30/2023 ( Hospital Day 0 days ) Attending:Rosa Cornejo MD ID: Adin Santos is a 83 y.o. female PMH significant for hypertension and hyperlipidemia who presented to [facility] as a transfer from [facility] as a possible STEMI alert with acute onset chest pain. The patient reports that her symptoms initially began on Tuesday when she was walking to [facility] and experienced bilateral arm heaviness while walking with no other symptoms. Then, this afternoon shereports developing bilateral achy shoulder pain and nonradiating substernal left-sided chest pressure that was 7/10 in severity after coming home from restoration. The patient denies any associated fevers, chills, [...] the patient was taken directly to the Speech Pathology Teacher. Two lesions were discovered: one in the prox RCA (felt to almost be a [employer] but they were able to wire, balloon, [...] low lung volumes. Findings similar to senior javascript engineer radiograph from CT 10/30/2023. Assessment & Plan: Adin Santos is a 83 y.o. female PMH significant for hypertension and hyperlipidemia who presented to [facility] [place] [facility] [place] with HTN HLD transferred with chest from [facility]. BP 217/68, HR 71 EKG [...] information for follow-up Home [facility] H[facility], [place] [address] TANESHA BOYCE confirmed with Brittany CARVAJAL that they will see the patient within 24-48 hours of discharge for start of care. Transportation: family or friend will provide Wheelchair van/Ambulance? No Functional status prior to admission: Assistive Equipment Home Environment: Others in the home: alone. Current Living Arrangements: home/apartment/condo. Accessibility Concerns:1st floor apartment in assisted community; handicapped accessible. Current Functional Ability: Assistive [...] in the room. Electrolytes replaced, see MAR. curb and gutter laborer sites remained C/D/I with baseline ecchymosis unchanged. Pt complained of back pain, lidocaine patch given. Right IV infiltrated during infusion, patient is marked with sharpie, IV removed. See flowsheet for I+O's and safety rounding. Patient is able to make needs known and call capps within reach. PLAN MOVING FORWARD: Monitor Tele, control BP, monitor pie bakery laborer sites, D/C Planning INDIVIDUALIZED FALL PREVENTION [...] in an outpatient cardiac rehabilitation program at [facility] was discussed. Patient agrees to [...] and above on RA. PT went to pie bakery laborer today. Left fem site oozed throughout [...] MOVING FORWARD: Monitor Tele, control BP, monitor pie bakery laborer sites, D/C Planning INDIVIDUALIZED FALL PREVENTION [...] Admitted From: Transfer from another hospital Location: [facility] Reason for Hospitalization: chest pain Covid Vaccination Status: 1st, 2nd & booster Past medical History: No past medical history on file. Hospitalizations Within the Past 30 Days: no previous admission in last 30 days Current Decision-Making Capacity: Self If AD's have not been completed the following surrogate would be surrogate decision maker per [place] decision making law. (Only good for 180 days) Any patient receiving care in [place] must abide by [place] law. The hierarchy for surrogate decision making [...] (i) The agent with financial power of blood bank business manager or a conservator appointed in accordance with [...] Arrangements: home/apartment/condo. Accessibility Concerns:1st floor apartment in assisted community; handicapped accessible. In the last 12 [...] has the electric, gas, oil, or water Specle threatened to shut off services in your [...] toilet seat Home Address confirmed as: [address] [facility] [address] Social & Family Supports: All names listed below confirmed with patient as current and correct Extended Emergency Contact Information Primary Emergency Contact: Iris Downing Address: [address] [place], [place] [address] [place] [address] Mobile Relation: Child Secondary Emergency Contact: Karen More Address: [address] [facility] [address] [address] Mobile Relation: Child Current Care Provided by: self Provides Primary Care For: no one Caregiver if needed: child(emmanuel), adult Quality of Family relationships: involved, supportive Community Resources being provided currently: other (see comments) (receives [facility] services at home (1xweekly)) Behavioral Health History: [...] Insurance: N/A Prescription Coverage: Yes Preferred Pharmacy: [id number] [place], [place] - [address] [place] [address] [place] [address] [address] [place] Status: Patient is a : No Primary Care Provider listed: Masood Pierson MD [phone] Patient/Caregiver Goals of Treatment: home when MR Potential Needs for Transition of Care: home health care Agency Referrals: Not Applicable I have met with the patient to: discuss discharge planning needs. provide the [facility], Office of Care Management letter from the Photographer'S Model pertaining to rehab referrals. provide a letter describing our affiliations within the [facility] and educate about their right to choose where referrals are sent. provide a list of Home Health Agencies / Durable Medical Equipment vendors which serve their preferred geographic area. provided patient with CMS Star Quality Rating handout. They have requested referrals to: [facility] [address] [place] [address] Note routed to a Tile Helper who will communicate referrals to facilities and [...] results. PO hydralazine added for BP control. curb and gutter laborer sites remain C/D/I, ecchymosis unchanged th roughout shift. See flowsheet for I+O's and safety rounding. Patient is able to make needs known and call capps within reach. PLAN MOVING FORWARD: Monitor Tele, control CP and BP, NPO at MD for cath, monitor pie bakery laborer sites, D/C Planning INDIVIDUALIZED FALL PREVENTION [...] AM EDT Office Visit Cardiology at [address] [address] Izaiah Meyer MD [facility] [place] [address] Scheduled Referrals Name Type Priority Associated Diagnoses [...] 3:46 AM EDT) Neutrophil % 63.3 % [facility] Neutrophil Absolute 5.28 1.70 - 6.10 x10(3)/mc L [facility] Lymph % 15.2 % [facility] Lymphocytes Abs 1.3 0.9 - 3.2 x10(3)/mc L [facility] Monocyte % 16.9 % [facility] Monocyte Abs 1.4(H) 0.3 - 0.9 x10(3)/mc L [facility] Eos % 3.7 % [facility] Eosinophils Abs 0.3 0.0 - 0.4 x10(3)/mc L [facility] Basophil % 0.5 % [facility] Baso Absolute 0.0 0.0 - 0.1 x10(3)/mc L [facility] Immature Gran % 0.40 % [facility] Comment: Immature granulocytes(IG's)percentage and absolute count will include metamyelocytes, myelocytes, and promyelocytes. Blood smears from CBCs yielding IG's will be scanned manually for concordance. If this scan disagrees with the automated IG or if promyelocytes are noted, a manual differential will be performed. Immature Gran Absolute 0.03 0.00 - 0.04 x10(3)/mc L [facility] Blood 11/03/2023 3:46 AM EDT 11/03/2023 4:11 AM EDT Narrative Resulting Agency Comment Spec In Lab Qamar Gallardo MD HEMATOLOGY ORDERABLE S [facility] [place] [address] * (ABNORMAL) Hemogram (11/03/2023 3:46 AM EDT) White Blood Cell 8.3 4.0 - 9.5 x10(3)/[facility] Red Blood Cell 3.77(L) 4.00 - 5.21 x10(6)/[facility] Hemoglobin 13.1 11.7 - 15.5 g/dL [facility] Hematocrit 38.0 35.7 - 45.8 % [facility] Mean Cell Volume 100.8(H) 82.6 - 94.4 fL [facility] Mean Cell Hemoglobin 34.7(H) 27.1 - 32.0 pg [facility] Mean Cell Hemoglobin Concentration 34.5 31.7 - 35.0 g/dL [facility] Platelet 181 145 - 357 x10(3)/ L [facility] RDW Standard Deviation 54.7(H) 37.0 - 46.0 [facility] RDW coefficient of variation 14.6(H) 11.5 - 14.1 % [facility] Mean Platelet Volume 11.2 7.6 - 12.9 [facility] NRBC% auto 0.0 % [facility] NRBC Absolute 0.000 0.000 - 0.000 x10(3)/ L [facility] Blood 11/03/2023 3:46 AM EDT 11/03/2023 4:11 AM EDT Narrative Resulting Agency Comment Spec In Lab Qamar Gallardo MD HEMATOLOGY ORDERABLE S Performing Organization Address City/[facility]/ZIP Co de Phone Number [facility] [place] [address] * Phosphorus (11/03/2023 3:46 AM EDT) Phosphorus 3.2 2.5 - 4.5 mg/dL [facility] Comment:result rechecked-KS Blood 11/03/2023 3:46 AM EDT 11/03/2023 4:11 AM EDT Narrative Resulting Agency Comment Spec In Lab Rosa Cornejo MD CHEMISTRY ORDERABLE S Performing Organization Address [facility]/ZIP Co de Phone Number [facility] [place] [address] * Magnesium (11/03/2023 3:46 AM EDT) Magnesium 0.90 0.69 - 1.07 mmol/L [facility] Blood 11/03/2023 3:46 AM EDT 11/03/2023 4:11 AM EDT Narrative Resulting Agency Comment Spec In Lab Rosa Cornejo MD CHEMISTRY ORDERABLE S Performing Organization Address City/[facility]/ZIP Co de Phone Number [facility] [place] [address] * (ABNORMAL) Basic Metabolic Panel (non-fasting) (11/03/2023 3:46 AM EDT) Glucose 105 65 - 199 mg/dL [facility] Comment:Diabetes: >=200 mg/d L plus symptoms Blood Urea Nitrogen 13 8 - 18 mg/dL [facility] Creatinine 0.83 0.70 - 1.20 mg/dL [facility] Sodium 139 135 - 145 mmol/L [facility] Potassium 4.0 3.5 - 5.0 mmol/L [facility] Comment: Please note: ??Patients with WBC >100,000 may have falsely elevated Potassium levels. ??For accurate Potassium quantification in these patients send serum separator tube (gold top) for subsequent determinations. ??Contact the Clinical Chemistry Laboratory if there are any questions. Chloride 108(H) 98 - 107 mmol/L [facility] Carbon Dioxide 19(L) 22 - 31 mmol/L [facility] Anion Gap 12 5 - 15 mmol/L [facility] Calcium 8.2(L) 8.5 - 10.5 mg/dL [facility] Est Glomerular Filtration Rate 69 >=60 mL/min/1. 73 m?? [facility] Comment: This patient's estimated [...] Lab Rosa Cornejo MD CHEMISTRY ORDERABLE S [facility] [place] [address] * EKG 12 Lead (11/02/2023 12:44 PM EDT) Ventricular rate 83 BPM MUSE SYSTEM Atrial Rate 83 BPM MUSE SYSTEM P-R Interval 216 ms MUSE SYSTEM QRS Duration 90 ms MUSE SYSTEM Q-T Interval 384 ms MUSE SYSTEM QTC Calculated (Bezet) 451 ms MUSE SYSTEM Calculated P [place] 92 degrees MUSE SYSTEM Calculated R [place] -51 degrees MUSE SYSTEM Calculated T [place] -33 degrees MUSE SYSTEM INTERPRETATION Sinus rhythm [...] RBC, Urine <1 0 - 4 /HPF [facility] Comment: Interpret results with caution, microscopic results are from suboptimal specimen volume WBC, Urine 16(H) 0 - 5 /HPF [facility] Comment: Interpret results with caution, microscopic results are from suboptimal specimen volume Bacteria, Urine Many(A) None /HPF [facility] Squamous Epithelial Cells Raw Data, Urine 10(H) <=4 /HPF [facility] Hyaline Casts, Urine 2 0 - 2 /LPF [facility] Comment: Interpret results with caution, microscopic results are from suboptimal specimen volume Clean Catch Urine 11/02/2023 11:40 AM EDT 11/02/2023 12:05 PM EDT Narrative Resulting Agency Comment Spec In Lab Elmer Tamez MD URINE ORDERABLES [facility] [place] [address] * (ABNORMAL) Urinalysis with reflex Culture (11/02/2023 11:40 AM EDT) Glucose, Urine Dipstick Negative Negative mg/dL [facility] Protein, Urine Dipstick 30(A) Negative mg/dL [facility] Bilirubin, Urine Dipstick Negative Negative mg/dL [facility] Comment: Clinical correlation required for positive Urine Bilirubin results as false positive may occur with some drugs and drug related products. If a false positive is suspected a serum total bilirubin should be considered if clinically indicated. Urobilinogen, Urine Dipstick Normal Normal mg/dL [facility] pH, Urn (dipstick) 5.5 5.0 - 8.0 [facility] Blood, Urine Dipstick Negative Negative mg/dL [facility] Ketone, Urine Dipstick Trace(A) Negative mg/dL [facility] Nitrite, Urine Dipstick Positive(A) Negative [facility] Leukocytes, Urine Dipstick Small(A) Negative [facility] Appearance, Urine Dipstick Cloudy(A) Clear [facility] Specific [place] Urine Automated >=1.030(A) 1.005 - 1.030 [facility] Color, Urine Dipstick Dark Yellow Yellow [facility] Reflex to Culture Yes [facility] Clean Catch Urine 11/02/2023 11:40 AM EDT 11/02/2023 12:04 PM EDT Narrative Resulting Agency Comment Spec In Lab Rosa Hugo MD URINE ORDERABLES [facility] [place] [address] * Respiratory Panel PCR (11/02/2023 10:15 AM EDT) Respiratory Panel Source ARCHAEOLOGIST Swab [facility] Respiratory Panel PCR Negative Negative [facility] Comment: Respiratory Panels are performed on the [employer], using multiplexed PCR nucleic acid detection. ??Negative results do not preclude respiratory infection and should not be used as the sole basis for diagnosis, treatment or other management decisions. Adenovirus Not Detected Not Detected [facility] Coronavirus HKU1 Not Detected Not Detected [facility] Coronavirus NL63 Not Detected Not Detected [facility] Coronavirus 229E Not Detected Not Detected [facility] Coronavirus OC43 Not Detected Not Detected [facility] SARS-CoV-2 Not Detected Not Detected [facility] Comment: Testing for SARS-CoV-2 (Severe acute respiratory syndrome coronavirus 2) to aid in the diagnosis of COVID-19 is performed using the [employer] Respiratory Panel 2.1 ([employer]) as authorized by the FDA issued Emergency Use Authorization (EUA). This panel also tests for multiple other viral and bacterial pathogens. This assay is intended for In-vitro Diagnostic (IVD) use with nasopharyngeal swabs in viral transport media. The assay is performed based on the instructions for use and additional guidance provided by the FDA. Testing is performed in laboratories within the [facility], each of which is certified [...] fact sheets at the following FDA website: https://www.fda.gov/medical-devices/ohoixfclckn-fwuctjq-2710-hlfsf-10-elzmwnmfj- use-a caerdsfndmewy-uudbvya-ycjsdip/peuxf-xvzfygvnwvz-sdou Human Metapneumovirus Not Detected Not Detected [facility] Human Rhinovirus/Enterov irus Not Detected Not Detected [facility] Influenza A Not Detected Not Detected [facility] Influenza B Not Detected Not Detected [facility] Parainfluenza 1 Not Detected Not Detected [facility] Parainfluenza 2 Not Detected Not Detected [facility] Parainfluenza 3 Not Detected Not Detected [facility] Parainfluenza 4 Not Detected Not Detected [facility] Respiratory Syncytial Virus Not Detected Not Detected [facility] Chlamydophila pneumoniae Not Detected Not Detected [facility] Mycoplasma pneumoniae Not Detected Not Detected [facility] Nasopharyngeal Swab 11/02/19 10:15 AM EDT 11/02/2023 10:49 AM EDT Narrative Resulting Agency Comment Spec In Lab Rosa Hugo MD MICROBIOLOGY - GEN ERAL ORDERABLES [facility] [place] [address] * XR Chest One View (11/02/2023 2:51 AM EDT) WORKSTATION ID [id number] DH RAD Anatomical Region Laterality Modality Chest [...] questions please contact the health day care supervisor that requested your imaging first. ? Narrative [...] have questions please contactthe health day care supervisor that requested your imaging first. Rosa Hugo MD IMG DX ORDERABLES * (ABNORMAL) Differential, Automated (11/02/2023 12:35 AM EDT) Neutrophil % 76.5 % [facility] Neutrophil Absolute 7.69(H) 1.70 - 6.10 x10(3)/mc L [facility] Lymph % 8.3 % [facility] Lymphocytes Abs 0.8(L) 0.9 - 3.2 x10(3)/mc L [facility] Monocyte % 12.9 % [facility] Monocyte Abs 1.3(H) 0.3 - 0.9 x10(3)/mc L [facility] Eos % 1.4 % [facility] Eosinophils Abs 0.1 0.0 - 0.4 x10(3)/mc L [facility] Basophil % 0.4 % [facility] Baso Absolute 0.0 0.0 - 0.1 x10(3)/mc L [facility] Immature Gran % 0.50 % [facility] Comment: Immature granulocytes(IG's)percentage and absolute count will include metamyelocytes, myelocytes, and promyelocytes. Blood smears from CBCs yielding IG's will be scanned manually for concordance. If this scan disagrees with the automated IG or if promyelocytes are noted, a manual differential will be performed. Immature Gran Absolute 0.05(H) 0.00 - 0.04 x10(3)/ L [facility] Blood 11/02/2023 12:3 5 AM EDT 11/02/2023 12:43 AM EDT Narrative Resulting Agency Comment Spec In Lab Qamar Gallardo MD HEMATOLOGY ORDERABLE S [facility] [place] [address] * (ABNORMAL) Hemogram (11/02/2023 12:35 AM EDT) White Blood Cell 10.0(H) 4.0 - 9.5 x10(3)/mc L [facility] Red Blood Cell 4.06 4.00 - 5.21 x10(6)/mc L [facility] Hemoglobin 13.8 11.7 - 15.5 g/dL [facility] Hematocrit 39.8 35.7 - 45.8 % [facility] Mean Cell Volume 98.0(H) 82.6 - 94.4 fL [facility] Mean Cell Hemoglobin 34.0(H) 27.1 - 32.0 pg [facility] Mean Cell Hemoglobin Concentration 34.7 31.7 - 35.0 g/dL [facility] Platelet 198 145 - 357 x10(3)/mc L [facility] RDW Standard Deviation 52.1(H) 37.0 - 46.0 fL [facility] RDW coefficient of variation 14.3(H) 11.5 - 14.1 % [facility] Mean Platelet Volume 11.4 7.6 - 12.9 fL [facility] NRBC% auto 0.0 % [facility] NRBC Absolute 0.000 0.000 - 0.000 x10(3)/mc L [facility] Blood 11/02/2023 12:3 5 AM EDT 11/02/2023 12:43 AM EDT Narrative Resulting Agency Comment Spec In Lab Qamar Gallardo MD HEMATOLOGY ORDERABLE S [facility] [place] [address] * (ABNORMAL) Phosphorus (11/02/2023 12:35 AM EDT) Phosphorus 1.6(L) 2.5 - 4.5 mg/dL [facility] Blood 11/02/2023 12:3 5 AM EDT 11/02/2023 12:43 AM EDT Narrative Resulting Agency Comment Spec In Lab Rosa Cornejo MD CHEMISTRY ORDERABLE S Performing Organization Address [facility]/ZIP Co de Phone Number [facility] [place] [address] * Magnesium (11/02/2023 12:35 AM EDT) Magnesium 0.87 0.69 - 1.07 mmol/L [facility] Blood 11/02/2023 12:3 5 AM EDT 11/02/2023 12:43 AM EDT Narrative Resulting Agency Comment Spec In Lab Rosa Cornejo MD CHEMISTRY ORDERABLE S Performing Organization Address City/[facility]/ZIP Co de Phone Number [facility] [place] [address] * Basic Metabolic Panel (non-fasting) (11/02/2023 12:35 AM EDT) Glucose 125 65 - 199 mg/dL [facility] Comment:Diabetes: >=200 mg/d L plus symptoms Blood Urea Nitrogen 9 8 - 18 mg/dL [facility] Creatinine 0.83 0.70 - 1.20 mg/dL [facility] Sodium 136 135 - 145 mmol/L [facility] Potassium 3.6 3.5 - 5.0 mmol/L [facility] Comment: Please note: ??Patients with WBC >100,000 may have falsely elevated Potassium levels. ??For accurate Potassium quantification in these patients send serum separator tube (gold top) for subsequent determinations. ??Contact the Clinical Chemistry Laboratory if there are any questions. Chloride 102 98 - 107 mmol/L [facility] Carbon Dioxide 25 22 - 31 mmol/L [facility] Anion Gap 9 5 - 15 mmol/L [facility] Calcium 9.0 8.5 - 10.5 mg/dL [facility] Est Glomerular Filtration Rate 69 >=60 mL/min/1. 73 m?? [facility] Comment: This patient's estimated [...] Lab Rosa Cornejo MD CHEMISTRY ORDERABLE S [facility] [place] [address] * Blood culture (11/02/2023 12:35 AM EDT) Blood Culture No growth at 5 days. [facility] Blood 11/02/2023 12:3 5 AM EDT 11/02/2023 1:55 AM EDT Comment:#2 site ukn Narrative Resulting Agency Comment Spec In Lab Rosa Hugo MD MICROBIOLOGY - BLO OD ORDERABLES Performing Organization Address [facility] Co de Phone Number [facility] [place] [address] * Blood culture (11/02/2023 12:15 AM EDT) Blood Culture No growth at 5 days. [facility] Blood 11/02/2023 12:1 5 AM EDT 11/02/2023 1:54 AM EDT Comment:#1site unk Narrative Resulting Agency Comment Spec In Lab Rosa Hugo MD MICROBIOLOGY - BLO OD ORDERABLES Performing Organization Address [facility] Co de Phone Number [facility] [place] [address] * EKG 12 Lead (11/01/2023 10:10 PM EDT) Ventricular rate 139 BPM MUSE SYSTEM Atrial Rate 139 BPM MUSE SYSTEM P-R Interval 168 ms MUSE SYSTEM QRS Duration 84 ms MUSE SYSTEM Q-T Interval 286 ms MUSE SYSTEM QTC Calculated (Bezet) 435 ms MUSE SYSTEM Calculated R [place] -59 degrees MUSE SYSTEM Calculated T [place] -27 degrees MUSE SYSTEM INTERPRETATION Mid-RP tachycardia, [...] interpretation Confirmed by fellow MD Bowen Ashley ([id number]) on 11/04/2023 7:57:50 AM Confirmed by MD Carrillo Danette ([id number]) on 11/04/2023 4:32:03 PM MUSE SYSTEM 11/01/2023 10:1 0 PM EDT 11/04/2023 4:32 PM EDT Rosa Cornejo MD ECG ORDERABLES MUSE SYSTEM * (ABNORMAL) Hemogram (11/01/2023 10:06 PM EDT) White Blood Cell 10.4(H) 4.0 - 9.5 x10(3)/[facility] Red Blood Cell 4.11 4.00 - 5.21 x10(6)/[facility] Hemoglobin 14.0 11.7 - 15.5 g/dL [facility] Hematocrit 41.1 35.7 - 45.8 % [facility] Mean Cell Volume 100.0(H) 82.6 - 94.4 fL [facility] Mean Cell Hemoglobin 34.1(H) 27.1 - 32.0 pg [facility] Mean Cell Hemoglobin Concentration 34.1 31.7 - 35.0 g/dL [facility] Platelet 197 145 - 357 x10(3)/ L [facility] RDW Standard Deviation 54.0(H) 37.0 - 46.0 fL [facility] RDW coefficient of variation 14.6(H) 11.5 - 14.1 % [facility] Mean Platelet Volume 11.2 7.6 - 12.9 fL [facility] NRBC% auto 0.0 % [facility] NRBC Absolute 0.000 0.000 - 0.000 x10(3)/ L [facility] Blood 11/01/2023 10:0 6 PM EDT 11/01/2023 10:22 PM EDT Narrative Resulting Agency Comment Spec In Lab Rosa Hugo MD HEMATOLOGY ORDERAB LES Performing Organization Address City/[facility]/ZIP Co de Phone Number [facility] [place] [address] * POCT Glucose (11/01/2023 5:59 PM EDT) [facility] Signature Glucose, POC 104 65 - 199 mg/dL [facility] Comment: Supplemental ranges: <140 mg/dL before meals <180 mg/dL all other times of the day Blood 11/01/2023 5:59 PM EDT 11/01/2023 5:59 PM EDT Rosa Hugo MD POINT OF CARE TEST ORDERABLES Performing Organization Address [facility] Co de Phone Number [facility] [place] [address] * POCT Glucose (11/01/2023 5:35 PM EDT) [facility] Glucose, POC 85 65 - 199 mg/dL [facility] Comment: Supplemental ranges: <140 mg/dL before meals <180 mg/dL all other times of the day Blood 11/01/2023 5:35 PM EDT 11/01/2023 5:35 PM EDT Rosa Hugo MD POINT OF CARE TEST ORDERABLES Performing Organization Address City/[facility] Co de Phone Number [facility] [place] [address] * EKG 12 Lead (11/01/2023 3:22 PM EDT) Ventricular rate 59 BPM MUSE SYSTEM Atrial Rate 59 BPM MUSE SYSTEM P-R Interval 220 ms MUSE SYSTEM QRS Duration 94 ms MUSE SYSTEM Q-T Interval 428 ms MUSE SYSTEM QTC Calculated (Bezet) 423 ms MUSE SYSTEM Calculated P [place] 76 degrees MUSE SYSTEM Calculated R [place] -50 degrees MUSE SYSTEM Calculated T [place] -59 degrees MUSE SYSTEM INTERPRETATION Sinus bradycardia [...] Modality Other Narrative 11/02/2023 4:57 PM EDT ?[facility] ? Cardiac Catheterization/Intervention Report ? Patient Name: Adin Santos ? Procedure Date: 11/01/2023 ? A #: [id number] ? Primary Physician: Rosa Dewey I ? Case #: [id number] ? File Name: [id number] ? Catheterization Order Number: [id number] ? [facility] ? Final Report [place], [place] ? Patient Name: ? Adin M. Goguen ?ID#: ?[id number] ? : ?1940 ? Procedure Date: ? [...] procedure was Urgent. 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 3.50 x 15 mm [place] Randolph (RADHA) was deployed with a maximum ? [...] A premounted 3.50 x 15 mm [place] Randolph (RADHA) was deployed ? 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 ?Recommended anti-platelet/anti-thrombotic regimen: ?Continue aspirin 81 [...] Procedure Note Rosa Dewey MD - 12/12/2023 [facility] Cardiac Catheterization/Intervention Report Patient Name: Adin Santos Procedure Date: 11/01/2023 A #: [id number] Primary Physician: Rosa Dewey I Case #: [id number] File Name: [id number] Catheterization Order Number: [id number] [facility] FinalReport [place], [place] Patient Name: Adin Santos ID#:[id number] :1940 Procedure Date: November 01, 2023 Case [...] was designated as ASA Class III. [facility]: Vulnerable. Diagnostic Tests: Prior Coronary Angiography: LV ejection fraction within 6 months is 65%. Electrocardiography: EKG was assessed by ECG. EKG was Abnormal. EKG showed other abnormality. Medications Prior to Procedure: Aspirin, Angiotensin II Receptor Rodrick and Statin. Indications for Diagnostic Cath: The priority of the diagnostic procedure was Urgent. The indicationfor the pie bakery laborer visit is ACS greater than 24 [...] atmospheres. Apremounted 3.50 x 15 mm Andrea Randolph (RADHA) was deployed with amaximum inflation pressure [...] The lesion was predilated with a 3.00mm [id number] MM balloon with a maximum inflation pressure of 14atmospheres. 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 Recommended anti-platelet/anti-thrombotic regimen: Continue aspirin 81 [...] * POCT Glucose (11/01/2023 7:06 AM EDT) [facility] Glucose, POC 93 65 - 199 mg/dL [facility] Comment: Supplemental ranges: <140 mg/dL before meals <180 mg/dL all other times of the day Blood 11/01/2023 7:06 AM EDT 11/01/2023 7:06 AM EDT Jean Laboy MD POINT OF CARE TEST O RDERABLES [facility] [place] [address] * (ABNORMAL) Differential, Automated (11/01/2023 3:09 AM EDT) Pathologist [facility] Neutrophil % 63.9 % [facility] Neutrophil Absolute 5.54 1.70 - 6.10 x10(3)/mc L [facility] Lymph % 20.0 % [facility] Lymphocytes Abs 1.7 0.9 - 3.2 x10(3)/mc L [facility] Monocyte % 11.9 % [facility] Monocyte Abs 1.0(H) 0.3 - 0.9 x10(3)/mc L [facility] Eos % 3.2 % [facility] Eosinophils Abs 0.3 0.0 - 0.4 x10(3)/ L [facility] Basophil % 0.5 % [facility] Baso Absolute 0.0 0.0 - 0.1 x10(3)/ L [facility] Immature Gran % 0.50 % [facility] Comment: Immature granulocytes(IG's)percentage and absolute count will include metamyelocytes, myelocytes, and promyelocytes. Blood smears from CBCs yielding IG's will be scanned manually for concordance. If this scan disagrees with the automated IG or if promyelocytes are noted, a manual differential will be performed. Immature Gran Absolute 0.04 0.00 - 0.04 x10(3)/ L [facility] Blood 11/01/2023 3:09 AM EDT 11/01/2023 3:29 AM EDT Narrative Resulting Agency Comment Spec In Lab Qamar Gallardo MD HEMATOLOGY ORDERABLE S Performing Organization Address City/State/[facility] Co de Phone Number [facility] [place] [address] * (ABNORMAL) Hemogram (11/01/2023 3:09 AM EDT) White Blood Cell 8.7 4.0 - 9.5 x10(3)/ L [facility] Red Blood Cell 3.72(L) 4.00 - 5.21 x10(6)/mc L [facility] Hemoglobin 12.5 11.7 - 15.5 g/dL [facility] Hematocrit 36.8 35.7 - 45.8 % [facility] Mean Cell Volume 98.9(H) 82.6 - 94.4 fL [facility] Mean Cell Hemoglobin 33.6(H) 27.1 - 32.0 pg [facility] Mean Cell Hemoglobin Concentration 34.0 31.7 - 35.0 g/dL [facility] Platelet 184 145 - 357 x10(3)/mc L [facility] RDW Standard Deviation 53.5(H) 37.0 - 46.0 fL [facility] RDW coefficient of variation 14.6(H) 11.5 - 14.1 % [facility] Mean Platelet Volume 11.3 7.6 - 12.9 fL [facility] NRBC% auto 0.0 % [facility] NRBC Absolute 0.000 0.000 - 0.000 x10(3)/mc L [facility] Blood 11/01/2023 3:09 AM EDT 11/01/2023 3:29 AM EDT Narrative Resulting Agency Comment Spec In Lab Qamar Gallardo MD HEMATOLOGY ORDERABLE S Performing Organization Address City/[facility]/ZIP Co de Phone Number [facility] [place] [address] * Phosphorus (11/01/2023 3:09 AM EDT) Phosphorus 2.5 2.5 - 4.5 mg/dL [facility] Blood 11/01/2023 3:09 AM EDT 11/01/2023 3:29 AM EDT Narrative Resulting Agency Comment Spec In Lab Rosa Cornejo MD CHEMISTRY ORDERABLE S Performing Organization Address City/[facility]/ZIP Co de Phone Number [facility] [place] [address] * Magnesium (11/01/2023 3:09 AM EDT) Magnesium 0.82 0.69 - 1.07 mmol/L [facility] Blood 11/01/2023 3:09 AM EDT 11/01/2023 3:29 AM EDT Narrative Resulting Agency Comment Spec In Lab Rosa Cornejo MD CHEMISTRY ORDERABLE S [facility] [place] [address] * (ABNORMAL) Basic Metabolic Panel (non-fasting) (11/01/2023 3:09 AM EDT) Glucose 100 65 - 199 mg/dL [facility] Comment:Diabetes: >=200 mg/d L plus symptoms Blood Urea Nitrogen 14 8 - 18 mg/dL [facility] Creatinine 0.83 0.70 - 1.20 mg/dL [facility] Sodium 137 135 - 145 mmol/L [facility] Potassium 3.4(L) 3.5 - 5.0 mmol/L [facility] Comment: Please note: ??Patients with WBC >100,000 may have falsely elevated Potassium levels. ??For accurate Potassium quantification in these patients send serum separator tube (gold top) for subsequent determinations. ??Contact the Clinical Chemistry Laboratory if there are any questions. Chloride 105 98 - 107 mmol/L [facility] Carbon Dioxide 24 22 - 31 mmol/L [facility] Anion Gap 8 5 - 15 mmol/L [facility] Calcium 8.6 8.5 - 10.5 mg/dL [facility] Est Glomerular Filtration Rate 69 >=60 mL/min/1. 73 m?? [facility] Comment: This patient's estimated [...] Lab Rosa Cornejo MD CHEMISTRY ORDERABLE S [facility] [place] [address] * (ABNORMAL) Troponin (10/31/2023 2:46 PM EDT) Troponin-T, High Sensitivity 544(H) <=14 ng/L [facility] Comment: This patient's troponin [...] troponin value can be found in the [facility] Test Catalog Troponin - [facility] Test Catalog Reference: Fourth [place] Definition of Myocardial Infarction. Journal of the [place] [employer] 2018;72:7967-0400 Blood 10/31/2023 2:46 PM EDT 10/31/2023 2:55 PM EDT Narrative Resulting Agency Comment Spec In Lab Jean Laboy MD CHEMISTRY ORDERABLES Performing Organization Address [facility] Co de Phone Number [facility] [place] [address] * EKG 12 Lead (10/31/2023 1:07 PM EDT) Ventricular rate 54 BPM MUSE SYSTEM Atrial Rate 54 BPM MUSE SYSTEM P-R Interval 218 ms MUSE SYSTEM QRS Duration 92 ms MUSE SYSTEM Q-T Interval 540 ms MUSE SYSTEM QTC Calculated (Bezet) 512 ms MUSE SYSTEM Calculated P [place] 85 degrees MUSE SYSTEM Calculated R [place] -44 degrees MUSE SYSTEM Calculated T [place] -69 degrees MUSE SYSTEM INTERPRETATION Sinus bradycardia with 1st degree A-V block Left axis deviation Moderate voltage criteria for LVH, may be normal variant ( R in aVL , [place] product ) T wave abnormality, consider inferolateral ischemia Prolonged QT Abnormal ECG When compared with ECG of 30-OCT-2023 20:21, Incomplete right bundle branch block is no longer Present Confirmed by MD NEFTALI, CHIDI ([id number]) on 10/31/2023 2:28:46 PM MUSE SYSTEM 10/31/2023 1:07 PM EDT 10/31/2023 2:28 PM EDT Rosa Cornejo MD ECG ORDERABLES Performing Organization Address [facility] Co de Phone Number MUSE SYSTEM * (ABNORMAL) Troponin (10/31/2023 11:37 AM EDT) Pathologist [facility] Troponin-T, High Sensitivity 580(H) <=14 ng/L [facility] Comment: This patient's troponin [...] troponin value can be found in the [facility] Test Catalog Troponin - [facility] Test Catalog Reference: Fourth [place] Definition of Myocardial Infarction. Journal of the [place] [employer] 2018;72:5885-3898 Blood 10/31/2023 11:3 7 AM EDT 10/31/2023 11:50 AM EDT Narrative Resulting Agency Comment Spec In Lab Rosa Cornejo MD CHEMISTRY ORDERABLE S [facility] [place] [address] * ECHO COMPLETE (10/31/2023 8:52 AM EDT) Anatomical Region Laterality Modality Cardiac Other 10/31/2023 7:57 AM EDT Narrative 10/31/2023 9:45 AM EDT [address] [place] [address] ? Echocardiogram Report Name: ADIN SANTOS ? Study Date: 10/31/2023 07:57 AMBP: 106/76 mmHg ? Patient Location: [facility] 0[facility] A : 1940 ? Height: 163 cm ? Account: [id number] Age: 83 yrs ? Weight: 76 kg Gender: Female ?BSA: 1.8 m2 Ordering Physician: ROSA DEWEY Referring Physician: OMAIRA GIRON Performed By: HAFSA Carmichael Reason For Study: STEMI Interpreting Fellow: Raymond Warren. Exam Location: [facility]. Interpretation Summary -The left ventricle [...] is no prior echocardiogram for comparison. Procedure Complete-97769. Satisfactory quality. There is sinus bradycardia. Left [...] Note Edgard Wang MD - 10/31/2023 [address] [place] [id number] Echocardiogram Report Name: TREY SANTOSMarco A Catherine Study Date: 407:57 AMBP: 106/76 mmHg Patient Location: [address] : 1940 Height: 163 cm Account: [id number] Age: 83 yrs Weight: 76 kg Gender: Female BSA: 1.8 m2 Ordering Physician: ROSA DEWEY Referring Physician: OMAIRA GIRON Performed By: HAFSA Carmichael Reason For Study: STEMI Interpreting Fellow: Raymond Warren. Exam Location: [facility]. Interpretation Summary -The left ventricle [...] is no prior echocardiogram for comparison. Procedure Complete-69458. Satisfactory quality. There is sinus bradycardia. Left [...] EDT) Troponin-T, High Sensitivity 571(H) <=14 ng/L [facility] Comment: This patient's troponin [...] troponin value can be found in the [facility] Test Catalog Troponin - [facility] Test Catalog Reference: Fourth [place] Definition of Myocardial Infarction. Journal of the [place] [employer] 2018;72:2526-4457 Blood 10/31/2023 8:51 AM EDT 10/31/2023 9:12 AM EDT Narrative Resulting Agency Comment Spec In Lab Rosa Cornejo MD CHEMISTRY ORDERABLE S Performing Organization Address City/State/[facility] Co de Phone Number [facility] [place] [address] * CARDIAC CATHETERIZATION (10/31/2023 8:10 AM EDT) Anatomical Region Laterality Modality Other Narrative 11/07/2023 9:42 AM EDT ?[facility] ? Cardiac Catheterization/Intervention Report ? Patient Name: Adin Santos M. ? Procedure Date: 10/30/2023 ? A #: [id number] ? Primary Physician: Rosa Dewey I ? Case #: [id number] ? File Name: [id number] ? Catheterization Order Number: [id number] ? [facility] ? Final Report [place], [place] ? Patient Name: ? Adin M. Goguen ?ID#: ?[id number] ? : ?1940 ? Procedure Date: ? October 30, 2023 ? Case #: ? [id number] ? Room: ? 5 ? Case Physician: [...] procedure was Emergent. 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 A premounted 4.00 x 38 mm [place] Randolph (RADHA) was deployed ? 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 ?Recommended anti-platelet/anti-thrombotic regimen: ?Continue aspirin 81 [...] Procedure Note Rosa Dewey MD - 12/05/2023 [facility] Cardiac Catheterization/Intervention Report Patient Name: Adin Santos Procedure Date: 10/30/2023 A #: [id number] Primary Physician: Rosa Dewey I Case #: [id number] File Name: [id number] Catheterization Order Number: [id number] [facility] FinalReport [place], [place] Patient Name: Adin Santos ID#:[id number] :1940 Procedure Date: October 30, 2023 Case #: [id number] Room: 5 Case Physician: Rosa Dewye M.D. Start: 17:26 Fellow: Tavon Ha Jr., [...] was designated as ASA Class III. The [facility] clinical frailtyscale is 5: Mildly Frail. Diagnostic Tests: Electrocardiography: EKG was assessed by ECG. EKG was Abnormal. EKG showed STDeviation >= 0.5 mm, other abnormality and dynamic EKG changes. Medications Prior to Procedure: Aspirin, Angiotensin II Receptor Rodrick, Beta Rodrick andStatin. Indications for Diagnostic Cath: The priority of the diagnostic procedure was Emergent. Theindication for the pie bakery laborer visit is ACS less than or [...] A premounted 4.00 x 38 mm [place] Randolph (RADHA) wasdeployed with a maximum inflation pressure [...] dose administered prior to arrival in the pie bakery laborer. Recommended anti-platelet/anti-thrombotic regimen: Continue aspirin 81 [...] * (ABNORMAL) Troponin (10/31/2023 4:21 AM EDT) [facility] Troponin-T, High Sensitivity 457(H) <=14 ng/L [facility] Comment: This patient's troponin [...] troponin value can be found in the [facility] Laboratory Test Catalog Troponin - [facility] Laboratory Test Catalog Reference: Fourth [place] Definition of Myocardial Infarction. Journal of the [place] College [employer] 2018;72:2774-7620 Blood 10/31/2023 4:21 AM EDT 10/31/2023 4:30 AM EDT Narrative Resulting Agency Comment Spec In Lab Rosa Cornejo MD CHEMISTRY ORDERABLE S Performing Organization Address City/State/[facility] Co de Phone Number [facility] [place] [address] * (ABNORMAL) Differential, Automated (10/31/2023 3:05 AM EDT) Neutrophil % 71.7 % [facility] Neutrophil Absolute 8.21(H) 1.70 - 6.10 x10(3)/mc L [facility] Lymph % 16.9 % [facility] Lymphocytes Abs 1.9 0.9 - 3.2 x10(3)/mc L [facility] Monocyte % 9.4 % [facility] Monocyte Abs 1.1(H) 0.3 - 0.9 x10(3)/mc L [facility] Eos % 1.3 % [facility] Eosinophils Abs 0.2 0.0 - 0.4 x10(3)/mc L [facility] Basophil % 0.4 % [facility] Baso Absolute 0.0 0.0 - 0.1 x10(3)/ L [facility] Immature Gran % 0.30 % [facility] Comment: Immature granulocytes(IG's)percentage and absolute count will include metamyelocytes, myelocytes, and promyelocytes. Blood smears from CBCs yielding IG's will be scanned manually for concordance. If this scan disagrees with the automated IG or if promyelocytes are noted, a manual differential will be performed. Immature Gran Absolute 0.04 0.00 - 0.04 x10(3)/ L [facility] Blood 10/31/2023 3:05 AM EDT 10/31/2023 3:13 AM EDT Narrative Resulting Agency Comment Spec In Lab Qamar Gallardo MD HEMATOLOGY ORDERABLE S Performing Organization Address City/State/[facility] Co de Phone Number [facility] [place] [address] * (ABNORMAL) Hemogram (10/31/2023 3:05 AM EDT) White Blood Cell 11.5(H) 4.0 - 9.5 x10(3)/ L [facility] Red Blood Cell 3.75(L) 4.00 - 5.21 x10(6)/ L [facility] Hemoglobin 12.6 11.7 - 15.5 g/dL [facility] Hematocrit 37.1 35.7 - 45.8 % [facility] Mean Cell Volume 98.9(H) 82.6 - 94.4 fL [facility] Mean Cell Hemoglobin 33.6(H) 27.1 - 32.0 pg [facility] Mean Cell Hemoglobin Concentration 34.0 31.7 - 35.0 g/dL [facility] Platelet 206 145 - 357 x10(3)/ L [facility] RDW Standard Deviation 53.4(H) 37.0 - 46.0 fL [facility] RDW coefficient of variation 14.6(H) 11.5 - 14.1 % [facility] Mean Platelet Volume 11.1 7.6 - 12.9 fL [facility] NRBC% auto 0.0 % [facility] NRBC Absolute 0.000 0.000 - 0.000 x10(3)/mc L [facility] Blood 10/31/2023 3:05 AM EDT 10/31/2023 3:13 AM EDT Narrative Resulting Agency Comment Spec In Lab Qamar Gallardo MD HEMATOLOGY ORDERABLE S Performing Organization Address [facility] Co de Phone Number [facility] [place] [address] * (ABNORMAL) APTT (10/31/2023 3:05 AM EDT) Partial Thromboplastin Time 67(H) 25 - 37 sec [facility] Comment: The PTT is NOT appropriate for heparin monitoring. Use the Anti-Xa level for heparin monitoring (HEP UFH) or LMWH monitoring (HEP LMW). A PTT less than 37 seconds generally indicates adequate hemostasis. Blood 10/31/2023 3:05 AM EDT 10/31/2023 3:13 AM EDT Narrative Resulting Agency Comment Spec In Lab Rosa Cornejo MD HEMATOLOGY ORDERABL ES Performing Organization Address [facility] Co de Phone Number [facility] [place] [address] * (ABNORMAL) Prothrombin Time (10/31/2023 3:05 AM EDT) Prothrombin Time 12.6(H) 9.4 - 12.5 sec [facility] International Normalization Ratio 1.1 [facility] Comment: An INR <2.0 [...] Lab Rosa Cornejo MD HEMATOLOGY ORDERABL ES [facility] [place] [address] * (ABNORMAL) Differential, Automated (10/31/2023 1:37 AM EDT) Neutrophil % 71.1 % [facility] Neutrophil Absolute 7.53(H) 1.70 - 6.10 x10(3)/mc L [facility] Lymph % 18.0 % [facility] Lymphocytes Abs 1.9 0.9 - 3.2 x10(3)/mc L [facility] Monocyte % 8.7 % [facility] Monocyte Abs 0.9 0.3 - 0.9 x10(3)/mc L [facility] Eos % 1.6 % [facility] Eosinophils Abs 0.2 0.0 - 0.4 x10(3)/mc L [facility] Basophil % 0.4 % [facility] Baso Absolute 0.0 0.0 - 0.1 x10(3)/mc L [facility] Immature Gran % 0.20 % [facility] Comment: Immature granulocytes(IG's)percentage and absolute count will include metamyelocytes, myelocytes, and promyelocytes. Blood smears from CBCs yielding IG's will be scanned manually for concordance. If this scan disagrees with the automated IG or if promyelocytes are noted, a manual differential will be performed. Immature Gran Absolute 0.02 0.00 - 0.04 x10(3)/mc L [facility] Blood 10/31/2023 1:37 AM EDT 10/31/2023 1:46 AM EDT Narrative Resulting Agency Comment Spec In Lab Qamar Gallardo MD HEMATOLOGY ORDERABLE S [facility] [place] [address] * (ABNORMAL) Hemogram (10/31/2023 1:37 AM EDT) White Blood Cell 10.6(H) 4.0 - 9.5 x10(3)/mc L [facility] Red Blood Cell 3.78(L) 4.00 - 5.21 x10(6)/mc L [facility] Hemoglobin 13.0 11.7 - 15.5 g/dL [facility] Hematocrit 37.9 35.7 - 45.8 % [facility] Mean Cell Volume 100.3(H) 82.6 - 94.4 fL [facility] Mean Cell Hemoglobin 34.4(H) 27.1 - 32.0 pg [facility] Mean Cell Hemoglobin Concentration 34.3 31.7 - 35.0 g/dL [facility] Platelet 204 145 - 357 x10(3)/mc L [facility] RDW Standard Deviation 54.3(H) 37.0 - 46.0 fL [facility] RDW coefficient of variation 14.6(H) 11.5 - 14.1 % [facility] Mean Platelet Volume 11.1 7.6 - 12.9 fL [facility] NRBC% auto 0.0 % [facility] NRBC Absolute 0.000 0.000 - 0.000 x10(3)/mc L [facility] Blood 10/31/2023 1:37 AM EDT 10/31/2023 1:46 AM EDT Narrative Resulting Agency Comment Spec In Lab Qamar Gallardo MD HEMATOLOGY ORDERABLE S [facility] [place] [address] * Phosphorus (10/31/2023 1:37 AM EDT) [facility] Phosphorus 3.2 2.5 - 4.5 mg/dL [facility] Blood 10/31/2023 1:37 AM EDT 10/31/2023 1:46 AM EDT Narrative Resulting Agency Comment Spec In Lab Rosa Cornejo MD CHEMISTRY ORDERABLE S Performing Organization Address City/[facility]/ZIP Co de Phone Number [facility] [place] [address] * Magnesium (10/31/2023 1:37 AM EDT) [facility] Magnesium 0.83 0.69 - 1.07 mmol/L [facility] Blood 10/31/2023 1:37 AM EDT 10/31/2023 1:46 AM EDT Narrative Resulting Agency Comment Spec In Lab Rosa Cornejo MD CHEMISTRY ORDERABLE S Performing Organization Address City/[facility]/ZIP Co de Phone Number [facility] [place] [address] * Basic Metabolic Panel (non-fasting) (10/31/2023 1:37 AM EDT) [facility] Glucose 114 65 - 199 mg/dL [facility] Comment:Diabetes: >=200 mg/d L plus symptoms Blood Urea Nitrogen 13 8 - 18 mg/dL [facility] Creatinine 0.81 0.70 - 1.20 mg/dL [facility] Sodium 140 135 - 145 mmol/L [facility] Potassium 3.9 3.5 - 5.0 mmol/L [facility] Comment: Please note: ??Patients with WBC >100,000 may have falsely elevated Potassium levels. ??For accurate Potassium quantification in these patients send serum separator tube (gold top) for subsequent determinations. ??Contact the Clinical Chemistry Laboratory if there are any questions. Chloride 107 98 - 107 mmol/L [facility] Carbon Dioxide 25 22 - 31 mmol/L [facility] Anion Gap 8 5 - 15 mmol/L [facility] Calcium 8.6 8.5 - 10.5 mg/dL [facility] Est Glomerular Filtration Rate 72 >=60 mL/min/1. 73 m?? [facility] Comment: This patient's estimated [...] Lab Rosa Cornejo MD CHEMISTRY ORDERABLE S [facility] [place] [address] * (ABNORMAL) Troponin (10/31/2023 1:37 AM EDT) Troponin-T, High Sensitivity 329(H) <=14 ng/L [facility] Comment: This patient's troponin [...] troponin value can be found in the [facility] Test Catalog Troponin - [facility] Test Catalog Reference: Fourth [place] Definition of Myocardial Infarction. Journal of the [place] College [employer] 2018;72:9057-5250 Blood 10/31/2023 1:37 AM EDT 10/31/2023 1:46 AM EDT Narrative Resulting Agency Comment Spec In Lab Rosa Cornejo MD CHEMISTRY ORDERABLE S Performing Organization Address City/State/[facility] [place] [address] * EKG 12 Lead (10/31/2023 1:20 AM EDT) Ventricular rate 52 BPM MUSE SYSTEM Atrial Rate 52 BPM MUSE SYSTEM P-R Interval 224 ms MUSE SYSTEM QRS Duration 108 ms MUSE SYSTEM Q-T Interval 544 ms MUSE SYSTEM QTC Calculated (Bezet) 505 ms MUSE SYSTEM Calculated P [place] 90 degrees MUSE SYSTEM Calculated R [place] -57 degrees MUSE SYSTEM Calculated T [place] -63 degrees MUSE SYSTEM INTERPRETATION Sinus bradycardia with 1st degree A-V block Pulmonary disease pattern Left anterior fascicular block Moderate voltage criteria for LVH, may be normal variant ( R in aVL , [place] product ) T wave abnormality, consider inferior ischemia T wave abnormality, consider anterolateral ischemia Prolonged QT Abnormal ECG When compared with ECG of 30-OCT-2023 22:40, No significant change was found Confirmed by Butch Soto MD ([id number]) on 11/01/2023 8:58:03 PM MUSE SYSTEM 10/31/2023 1:20 AM EDT 11/01/2023 8:58 PM EDT Rosa Cornejo MD ECG ORDERABLES Performing Organization Address [facility] de Phone Number MUSE SYSTEM * EKG 12 Lead (10/30/2023 10:40 PM EDT) Ventricular rate 55 BPM MUSE SYSTEM Atrial Rate 55 BPM MUSE SYSTEM P-R Interval 232 ms MUSE SYSTEM QRS Duration 102 ms MUSE SYSTEM Q-T Interval 520 ms MUSE SYSTEM QTC Calculated (Bezet) 497 ms MUSE SYSTEM Calculated P [place] 75 degrees MUSE SYSTEM Calculated R [place] -53 degrees MUSE SYSTEM Calculated T [place] -57 degrees MUSE SYSTEM INTERPRETATION Sinus bradycardia with 1st degree A-V block Left anterior fascicular block Moderate voltage criteria for LVH, may be normal variant ( R in aVL , [place] product ) T wave abnormality, consider inferior ischemia T wave abnormality, consider anterolateral ischemia Prolonged QT Abnormal ECG When compared with ECG of 30-OCT-2023 20:21, Incomplete right bundle branch block is no longer Present Confirmed by Charles COFFMAN, Butch (1960) on 11/01/2023 8:58:01 PM MUSE SYSTEM 10/30/2023 10:4 0 PM EDT 11/01/2023 8:58 PM EDT Rosa Cornejo MD ECG ORDERABLES Performing Organization Address [facility] Phone Number MUSE SYSTEM * XR Chest One View (10/30/2023 10:10 PM EDT) WORKSTATION ID [id number] RAD Anatomical Region Laterality Modality Chest N/A [...] low lung volumes. Findings similar to senior javascript engineer radiograph from CT 10/30/2023. Thank you for letting us participate in the care of this patient. ??If you are a health care provider and have any questions regarding this report, please contact the number below. ??For patients who have questions please contact the health day care supervisor that requested your imaging first. ? Narrative [...] low lung volumes. Findings similar to senior javascript engineer radiograph from CT 10/30/2023. Thank you for letting us participate in the care of this patient. If youare a health care provider and have any questions regarding this report,please contact the number below. For patients who have questions please contactthe health day care supervisor that requested your imaging first. Rosa Cornejo MD IMG DX ORDERABLES * Green Tube HOLD (10/30/2023 10:05 PM EDT) [facility] Green Hold Sample in lab. [facility] Blood Venous Draw / Unknown 10/30/2023 10:05 PM EDT 10/30/2023 10:13 PM EDT Qamar Gallardo MD CHEMISTRY ORDERABLES [facility] [place] [address] * (ABNORMAL) Differential, Automated (10/30/2023 10:05 PM EDT) [facility] Neutrophil % 76.6 % [facility] Neutrophil Absolute 6.94(H) 1.70 - 6.10 x10(3)/mc L [facility] Lymph % 15.4 % [facility] Lymphocytes Abs 1.4 0.9 - 3.2 x10(3)/mc L [facility] Monocyte % 6.1 % [facility] Monocyte Abs 0.6 0.3 - 0.9 x10(3)/mc L [facility] Eos % 1.1 % [facility] Eosinophils Abs 0.1 0.0 - 0.4 x10(3)/ L [facility] Basophil % 0.6 % [facility] Baso Absolute 0.0 0.0 - 0.1 x10(3)/ L [facility] Immature Gran % 0.20 % [facility] Comment: Immature granulocytes(IG's)percentage and absolute count will include metamyelocytes, myelocytes, and promyelocytes. Blood smears from CBCs yielding IG's will be scanned manually for concordance. If this scan disagrees with the automated IG or if promyelocytes are noted, a manual differential will be performed. Immature Gran Absolute 0.02 0.00 - 0.04 x10(3)/ L [facility] Blood 10/30/2023 10:0 5 PM EDT 10/30/2023 10:12 PM EDT Narrative Resulting Agency Comment Spec In Lab Qamar Galladro MD HEMATOLOGY ORDERABLE S [facility] [place] [address] * (ABNORMAL) Hemogram (10/30/2023 10:05 PM EDT) White Blood Cell 9.0 4.0 - 9.5 x10(3)/ L [facility] Red Blood Cell 3.96(L) 4.00 - 5.21 x10(6)/mc L [facility] Hemoglobin 13.3 11.7 - 15.5 g/dL [facility] Hematocrit 39.1 35.7 - 45.8 % [facility] Mean Cell Volume 98.7(H) 82.6 - 94.4 fL [facility] Mean Cell Hemoglobin 33.6(H) 27.1 - 32.0 pg [facility] Mean Cell Hemoglobin Concentration 34.0 31.7 - 35.0 g/dL [facility] Platelet 211 145 - 357 x10(3)/ L [facility] RDW Standard Deviation 53.6(H) 37.0 - 46.0 fL [facility] RDW coefficient of variation 14.6(H) 11.5 - 14.1 % [facility] Mean Platelet Volume 11.1 7.6 - 12.9 fL [facility] NRBC% auto 0.0 % [facility] NRBC Absolute 0.000 0.000 - 0.000 x10(3)/mc L [facility] Blood 10/30/2023 10:0 5 PM EDT 10/30/2023 10:12 PM EDT Narrative Resulting Agency Comment Spec In Lab Qamar Gallardo MD HEMATOLOGY ORDERABLE S Performing Organization Address City/[facility]/ZIP Co de Phone Number [facility] [place] [address] * Hemoglobin A1c (10/30/2023 10:05 PM EDT) Hemoglobin A1c 5.5 4.3 - 5.6 % [facility] Comment: Reference Range: 4.3 [...] Mellitus, Diabetes Care 2013; 36: Suppl. 1, R89-37 Estimated Average Glucose See note mg/dL [facility] Comment: Estimated Average Glucose not appropriate for patients over 70 years of age. Blood 10/30/2023 10:0 5 PM EDT 10/30/2023 10:12 PM EDT Narrative Resulting Agency Comment Spec In Lab Rosa Cornejo MD CHEMISTRY ORDERABLE S Performing Organization Address City/[facility]/ZIP Co de Phone Number [facility] [place] [address] * Lipid Panel (Reflex Direct LDL) (10/30/2023 10:05 PM EDT) Cholesterol, Total 218 mg/dL [facility] Comment: Desirable: ? <200 mg/dL Borderline High: 200-239 mg/dL Higher: ?>lq=913 mg/dL Triglyceride 46 mg/dL [facility] Comment: Normal: ?<150 mg/dL Borderline High: 150-199 mg/dL High: ?200-499 mg/dL Very High: ? >zu=093 mg/dL HDL Cholesterol 64 mg/dL [facility] Comment: Females: High Risk: <50 mg/dL Males: High Risk: <40 mg/dL LDL Cholesterol 145 mg/dL [facility] Comment: Desirable: ? <100 mg/dL Above Desirable: 100-129 mg/dL Borderline High: 130-159 mg/dL High: ?160-189 mg/dL Very High: ? >bh=049 mg/dL Lipid Interpretation See Note [facility] Comment: It is important [...] ACC/AHA Guidelines (most recently Feliciano et al. [facility] 03/23/22): For individuals with atherosclerotic cardiovascular disease (ASCVD)or LDL >np=073 mg/dL, use a high-intensity statin (40-80 mg [...] Lab Rosa Cornejo MD CHEMISTRY ORDERABLE S [facility] [place] [address] * TSH [place] (10/30/2023 10:05 PM EDT) Thyroid Stimulating Hormone 3.35 0.27 - 4.20 mcIU/mL [facility] Comment: Reference Interval (mcIU/mL): Females: ??First Trimester: 0.23-3.88 ??Second Trimester: 0.22-3.90 ??Third Trimester: 0.44-4.66 Blood 10/30/2023 10:0 5 PM EDT 10/30/2023 10:12 PM EDT Narrative Resulting Agency Comment Spec In Lab Rosa Cornejo MD CHEMISTRY ORDERABLE S [facility] [place] [address] * pro-Brain Natriuretic Peptide (10/30/2023 10:05 PM EDT) NT-proBNP 375 <=449 pg/mL [facility] Blood 10/30/2023 10:0 5 PM EDT 10/30/2023 10:12 PM EDT Narrative Resulting Agency Comment Spec In Lab Rosa Cornejo MD CHEMISTRY ORDERABLE S Performing Organization Address [facility]/ZIP Co de Phone Number [facility] [place] [address] * (ABNORMAL) Comprehensive metabolic panel (non-fasting) (10/30/2023 10:05 PM EDT) Pathologist [facility] Glucose 121 65 - 199 mg/dL [facility] Comment:Diabetes: >=200 mg/d L plus symptoms Blood Urea Nitrogen 14 8 - 18 mg/dL [facility] Creatinine 0.85 0.70 - 1.20 mg/dL [facility] Sodium 142 135 - 145 mmol/L [facility] Potassium 3.9 3.5 - 5.0 mmol/L [facility] Comment: Please note: ??Patients with WBC >100,000 may have falsely elevated Potassium levels. ??For accurate Potassium quantification in these patients send serum separator tube (gold top) for subsequent determinations. ??Contact the Clinical Chemistry Laboratory if there are any questions. Chloride 105 98 - 107 mmol/L [facility] Carbon Dioxide 27 22 - 31 mmol/L [facility] Anion Gap 10 5 - 15 mmol/L [facility] Calcium 8.8 8.5 - 10.5 mg/dL [facility] Protein, Total 6.5 6.1 - 8.0 g/dL [facility] Albumin 4.2 3.2 - 5.2 g/dL [facility] Aspartate Aminotransferase 36(H) 0 - 30 unit/L [facility] Alanine Aminotransferase 17 0 - 30 unit/L [facility] Alkaline Phosphatase 54 35 - 105 unit/L [facility] Bilirubin, Total 0.5 0.2 - 1.3 mg/dL [facility] Est Glomerular Filtration Rate 68 >=60 mL/min/1. 73 m?? [facility] Comment: This patient's estimated [...] CHEMISTRY ORDERABLE S Performing Organization Address City/[facility]/ZIP Co de Phone Number [facility] [place] [address] * Phosphorus (10/30/2023 10:05 PM EDT) Phosphorus 3.3 2.5 - 4.5 mg/dL [facility] Blood 10/30/2023 10:0 5 PM EDT 10/30/2023 10:12 PM EDT Narrative Resulting Agency Comment Spec In Lab Rosa Cornejo MD CHEMISTRY ORDERABLE S Performing Organization Address City/[facility]/ZIP Co de Phone Number [facility] [place] [address] * Magnesium (10/30/2023 10:05 PM EDT) Magnesium 0.86 0.69 - 1.07 mmol/L [facility] Blood 10/30/2023 10:0 5 PM EDT 10/30/2023 10:12 PM EDT Narrative Resulting Agency Comment Spec In Lab Rosa Cornejo MD CHEMISTRY ORDERABLE S [facility] [place] [address] * (ABNORMAL) Troponin (10/30/2023 10:05 PM EDT) Troponin-T, High Sensitivity 214(H) <=14 ng/L [facility] Comment: This patient's troponin [...] troponin value can be found in the [facility] Test Catalog Troponin - [facility] Test Catalog Reference: Fourth [place] Definition of Myocardial Infarction. Journal of the [place] College of [employer]iology 2018;72:1128-0106 Blood 10/30/2023 10:0 5 PM EDT 10/30/2023 10:12 PM EDT Narrative Resulting Agency Comment Spec In Lab Rosa Cornejo MD CHEMISTRY ORDERABLE S [facility] [place] [address] * EKG 12 Lead (10/30/2023 8:21 PM EDT) Ventricular rate 49 BPM MUSE SYSTEM Atrial Rate 49 BPM MUSE SYSTEM P-R Interval 230 ms MUSE SYSTEM QRS Duration 96 ms MUSE SYSTEM Q-T Interval 526 ms MUSE SYSTEM QTC Calculated (Bezet) 475 ms MUSE SYSTEM Calculated P [place] 98 degrees MUSE SYSTEM Calculated R [place] -48 degrees MUSE SYSTEM Calculated T [place] -51 degrees MUSE SYSTEM INTERPRETATION Sinus bradycardia with 1st degree A-V block Incomplete right bundle branch block Left anterior fascicular block Moderate voltage criteria for LVH, may be normal variant ( R in aVL , [place] product ) T wave abnormality, consider inferior ischemia T wave abnormality, consider anterolateral ischemia Prolonged QT Abnormal ECG When compared with ECG of 01-SEP-2007 11:02, Incomplete right bundle branch block is now Present Confirmed by MD NEFTALI, CHIDI ([id number]) on 10/31/2023 10:45:41 AM MUSE SYSTEM 10/30/2023 8:21 PM EDT 10/31/2023 10:45 AM EDT Rosa Cornejo MD ECG ORDERABLES Performing Organization Address City/[facility] Co de Phone Number MUSE [...] Shipley RN) 0900 (Given - Provider: Mary Sweeeny, TANESHA)2012 (Given - Provider: Danica Shipley RN) [...] documented as of this encounter Care Teams Hot Iron Worker Relationship Specialty Start Date End Date Rosie Mathews MD [address] [place] [id number] PCP - General Family Medicine 11/25/17 11/23/23 documented as of this encounter
--- OUTSIDE RECORDS SUMMARY | 2024-02-24 19:55 | XMS_ITS | Clinical Summary ---
Author Organization [facility] Address [address] [place] [address] Care Team Providers Care Jukebox Routeman Name Role Phone Kirsten Bateman MD Primary Care Provider [phone] Allergies Active Allergy Reactions Criticality Noted Date [...] COVID-19 Vaccine (2022-24 season) 2023 Care Teams Jukebox Routeman Relationship Specialty Start Date End Date Kirsten Bateman MD [address] [place] [phone] PCP - General 01/13/10
--- OUTSIDE RECORDS SUMMARY | 2024-02-24 19:55 | XMS_ITS | Encounter Summary ---
Author Organization [facility] Address [facility] [place] [address] Care Team Providers Care Slag Mixer Name Role Phone Rosie Mathews MD Primary Care Provider [phone] Reason for Visit * Consultation (Routine) - Closed Specialty Diagnoses / Procedures Referred By John hunt Referred To Contact Audiology Diagnoses Hearing assessment and treatment options Karson John MD [address] [place] [address] [facility] [address] [place] [phone] Referral ID Status Reason Start Date Expiration Date V isits Requested Visits Authorized [id number] Closed Consult, Test & Treat Connection Center 11/22/2017 11/22/2018 1 1 Encounter Details Date Type Department Care Team (Latest Contact Info) Description 11/30/2017 3:15 PM EDT Office Visit Audiology at [address] [address] Georgette Onofre AUD [facility] [address] Sensorineural hearing loss, bilateral; Bilateral [...] first 10-15 years. Ms. Goodrich obtained binaural [facility] in-the-ear hearingaids nine years ago in [place], [place]. She stated she continues to experience [...] tone audiogram. SNR loss is the increased ajisyg-ld-qpomr ratio required by an individual to understand [...] not hesitate to contact this Section at [phone] if there are questions regarding this report or its recommendations. Romeo Becker [place] [id number] Attachment: audiogram CC: MD Karson Loo MD Laurmarco a Catherine Edvinjonatanjosue [facility] [address] [place] [phone] documented in this encounter Plan of Treatment Upcoming Encounters Date Type Department Care Team (Late st Contact Info) Description 03/29/2024 11:20 AM EDT Office Visit Cardiology at [address] [place] [address] Izaiah Meyer MD [facility] [place] [address] documented as of this encounter Procedures Procedure [...] tinnitus documented in this encounter Care Teams Slag Mixer Relationship Specialty Start Date End Date Rosie Mathews MD [address] [place] [address] PCP - General Family Medicine 11/25/17 11/23/23 documented as of this encounter
--- OUTSIDE RECORDS SUMMARY | 2024-02-24 19:55 | XMS_ITS | Encounter Summary ---
Author Organization [facility] Address [address] [place] [address] Care Team Providers Care Hydraulic Oil Tool Operator Name Role Phone Unavailable Primary Care Provider Unavailabl e Encounter Details Date Type Department Care Team (Late st Contact Info) Description 01/10/2008 Before PRISM Converted Visit (Maple) [facility] - Maple conversion [address] [place] [address] Ray Farooq MD [address] [place] [phone] Social History Tobacco Use Types Packs/Day Years Used Date Smoking Tobacco: Never Assessed Sex and Gender Information Value Date Recorded Sex Assigned at Not on file Gender Identity Not on file Sexual Orientation Not on file documented as of this encounter Consult Notes * Ray Farooq MD - 03/21/2009 5603 EDT [facility] - 01/10/2008 Kirsten Bateman MD [facility] [address] [place] [address] Bateman: Chief complaint: Hearing loss. History of present illness: Vtsth-hovwi-rabn-old female with along history of bilateral hearing [...] aspirin, vitamin E, C, B12, B125 complex, Torey-Lomira, EPA fatty acid, coral calcium complex, potassium chloride, Diovan, and hormone essentials. She has drug allergies to cortisone, Percocet, and hydrocodone. Family history is significant for cancer. Social history: The patient is a nonsmoker, nondrinker. She lives in [place]. Review of systems is significant for allergies, [...] Tosin Farooq MD - MLD Job ID: [id number] Doc ID: [id number] cc: Kirsten Bateman MD cc: Kirsten Bateman MD documented in this encounter Plan of Treatment Not on file documented as of this encounter Visit Diagnoses Not on filedocumented in this encounter
--- OUTSIDE RECORDS SUMMARY | 2024-02-24 19:55 | XMS_ITS | Encounter Summary ---
Author Organization Counts Include [facility] Address [facility] [place] [address] Care Team Providers Care State Farm Agent Team Member Name Role Phone Rosie Mathews MD Primary Care Provider [phone] Encounter Details Date Type Department Care Team (Late st Contact Info) Description 10/30/2023 External Results Transfer Center [facility] [place] [address] Social History Tobacco Use Types Packs/Day Years Used Date Smoking Tobacco: Former Smokeless Tobacco: Never Alcohol Use Standard Drinks/Week Comments Not Currently 0 (1 standard drink = 0.6 oz pur e alcohol) [facility] Utilities Answer Date Recorded In the past 12 months has e [employer], gas, oil, or water [employer] threatened to shut off services in your [...] AM EDT Office Visit Cardiology at [address] [address] Izaiah Meyer MD [facility] [place] [address] documented as of this encounter Procedures Procedure [...] on filedocumented in this encounter Care Teams State Farm Agent Team Member Relationship Specialty Start Date End Date Rosie Mathews MD [address] [place] [address] PCP - General Family Medicine 11/25/17 11/23/23 documented as of this encounter
--- OUTSIDE RECORDS SUMMARY | 2024-02-24 19:55 | XMS_ITS | Encounter Summary ---
Author Organization [facility] Address [address] [place] [address] Care Team Providers Care Instructional Coordinator Name Role Phone Kirsten Bateman MD Primary Care Provider [phone] Reason for Visit * Reason Comments Hearing Loss tinnitus Encounter Details Date Type Department Care Team (Latest Contact Info) Description 01/15/2010 10:10 EDT Office Visit [address] [address] Unknown, ProviderMD Ray Farooq MD [address] [place] [address] [address] Sensorineural hearing loss, bilateral; Subjective [...] Ray Farooq MD - 01/28/2010 1108 EDT [facility]/FOLLOWUP NOTE - 01/15/2010 CHIEF COMPLAINT: [...] Farooq MD - Ray Farooq MD - [facility] Job ID: SM Doc ID: [id number] Ext Doc ID: [id number] cc: Kirsten Bateman MD * Ray Farooq [...] tinnitus documented in this encounter Care Teams Instructional Coordinator Relationship Specialty Start Date End Date Kirsten Bateman MD [address] [place] [address] PCP - General 01/13/10 documented as of this encounter
--- OUTSIDE RECORDS SUMMARY | 2024-02-24 19:55 | XMS_ITS | Encounter Summary ---
Author Organization [facility] Address [address] [place] [address] Care Team Providers Care Theatrical Dresser Name Role Phone Kirsten Bateman MD Primary Care Provider Encounter Details Date Type Department Care Team (Late st Contact Info) Description 01/14/2010 Abstract Used for ABSTRACTING Data [phone] Kirsten Bateman MD [address] [place] [address] Social History Tobacco Use Types [...] (FATTY ACID BASE MISC) by [facility]Non-Drug; Combo Route) route. EPA CYANOCOBALAMIN (VITAMIN B-12 ORAL) Take by mouth. ASCORBIC ACID (VITAMIN C ORAL) Take by mouth. VITAMIN E ACETATE (VITAMIN E ORAL) Take by mouth. ASPIRIN ORAL Take by mouth. AMITRIPTYLINE HCL (AMITRIPTYLINE ORAL) Take by mouth. ATENOLOL ORAL Take by mouth. SIMVASTATIN ORAL Take by mouth. added in this encounter Care Teams Theatrical Dresser Relationship Specialty Start Date End Date Kirsten Bateman MD [address] [place] [phone] PCP - General 01/13/10 documented as of this encounter
--- OUTSIDE RECORDS SUMMARY | 2024-02-24 19:55 | XMS_ITS | Encounter Summary ---
Author Organization [facility] Address [facility] [place] [address] Care Team Providers Care Dump Attendant Name Role Phone Rosie Mathews MD Primary Care Provider [phone] Reason for Visit * Reason Comments Skin Lesion * Consultation (Routine) - Closed Specialty Diagnoses / Procedures Referred By John hunt Referred To Contact Dermatology Diagnoses facial skin lesion Procedures pt would like to be seen PRADEEP Rosie Mathews MD [address] [place] [address] [facility] Dermatology [address] [place] [address] Referral ID Status Reason Start Date Expiration Date V isits Requested Visits Authorized [id number] Closed Consult, Test & Treat Connection Center 10/25/2017 10/25/2018 1 1 Encounter Details Date Type Department Care Team (Late st Contact Info) Description 11/25/2017 4:30 PM EDT Office Visit Dermatology at [facility] [address] [place] [address] Call, Radu Go MD [facility] DR SHERLYN [place] [address] Seborrheic keratosis; Fibrous papule of [...] Radu Tom MD Resident in Dermatology [facility] Patient seen in conjunction with staff die casting machine maintainer: Terri Hale MD Section of Dermatology [facility] * Terri Hale MD - 11/25/2017 [...] AM EDT Office Visit Cardiology at [address] [address] Izaiah Meyer MD [facility] [place] [address] documented as of this encounter Visit Diagnoses Diagnosis Seborrheic keratosis Other seborrheic keratosis Fibrous papule of nose Benign neoplasm of skin of other and unspecified parts of face Skin tags, multiple acquired documented in this encounter Care Teams Dump Attendant Relationship Specialty Start Date End Date Rosie Mathews MD [address] [place] [address] PCP - General Family Medicine 11/25/17 11/23/23 documented as of this encounter
--- OUTSIDE RECORDS SUMMARY | 2024-02-24 19:55 | XMS_ITS | Encounter Summary ---
Author Organization [facility] Address [facility] [place] [address] Care Team Providers Care Electronic Organ Technician Name Role Phone Rosie Mathews MD Primary Care Provider [phone] Encounter Details Date Type Department Care Team (Late st Contact Info) Description 10/30/2023 [place] [address] Jose Lee MD [facility] [place] [address] Social History Tobacco Use Types Packs/Day Years Used Date Smoking Tobacco: Former Smokeless Tobacco: Never Alcohol Use Standard Drinks/Week Comments Not Currently 0 (1 standard drink = 0.6 oz pur e alcohol) [facility] Utilities Answer Date Recorded In the past 12 months has th e [employer], gas, oil, or water [employer] threatened to shut off services in your [...] AM EDT Office Visit Cardiology at [address] [address] Izaiah Meyer MD [facility] [place] [address] documented as of this encounter Visit Diagnoses Not on filedocumented in this encounter Additional Health Concerns Infection Onset Date Last Indicated Resolved Time Rule Out Respiratory 11/02/2023 11/02/2023 024 12:22 PM EDT Rule Out COVID-19 11/02/2023 11/02/2023 11/02/2023 12:22 PM EDT documented as of this encounter Care Teams Electronic Organ Technician Relationship Specialty Start Date End Date Rosie Mathews MD [address] [place] [address] PCP - General Family Medicine 11/25/17 11/23/23 documented as of this encounter
--- OUTSIDE RECORDS SUMMARY | 2024-02-24 19:55 | XMS_ITS | Referral Summary ---
Author Organization [facility] Address [address] [place] [address] Care Team Providers Care Ore Sampler Name Role Phone Kirsten Bateman MD Primary Care Provider [phone] Allergies Active Allergy Reactions Criticality Noted Date [...] of Treatment Not on file Care Teams Ore Sampler Relationship Specialty Start Date End Date Kirsten Bateman MD [address] [place] [address] [facility] - General 01/13/10
--- OUTSIDE RECORDS SUMMARY | 2024-02-24 19:55 | XMS_ITS | Encounter Summary ---
Author Organization [facility] Address [address] [place] [address] Care Team Providers Care Occupational Ther Name Role Phone Kirsten Bateman MD Primary Care Provider [phone] Encounter Details Date Type Department Care Team (Late st Contact Info) Description 01/27/2021 Lab Requisition [facility] Pathology & Laboratory Medicine - [facility] [address], [place] [address] Outr Resulting Lab, Provider Social History Tobacco [...] Outr Resulting Lab MICROBIOLOGY - GENERAL ORDERABLES [facility] [address] [place] [address] * COVID-19 TESTING (01/26/2021 16:45 EDT) COVID-19 rt-PCR Result Negative Negative 01/28/2021 13:31 EDT [facility] Comment: This test [...] developed and its performance characteristics determined by [facility]. It has not been [...] testing. This test is based on the [facility] COVID-19 Emergency Use Authorization (EUA) assay, with minor modification as defined by the FDA Performed on the [employer] 7 Pro RT-PCR System. Performing Lab [facility] Lab 01/28/2021 13:31 EDT [facility] Swab 01/26/2021 16:4 5 EDT 01/27/2021 15:46 EDT Provider Outr Resulting Lab MICROBIOLOGY - GENERAL ORDERABLES [facility] [address] [place] [address] documented in this encounter Visit Diagnoses Not on filedocumented in this encounter Care Teams Occupational Ther Relationship Specialty Start Date End Date Kirsten Bateman MD [address] [place] [address] PCP - General 01/13/10 documented as of this encounter
--- OUTSIDE RECORDS SUMMARY | 2024-02-24 19:55 | XMS_ITS | Encounter Summary ---
Author Organization [facility] Address [facility] [place] [address] Care Team Providers Care Brake Adjuster Name Role Phone Rosie Mathews MD Primary Care Provider [phone] Encounter Details Date Type Department Care Team (Late st Contact Info) Description 10/30/2023 [place] [address] Jose Lee MD [facility] [place] [address] Social History Tobacco Use Types Packs/Day Years [...] Date: 10/30/2023 Referring Provider: Bree Patient Location: [facility] HPI: 83 yoF w/ PMHx of [...] in the patient condition. Jose Lee MD Company Laundry Worker documented in this encounter Plan of Treatment Upcoming Encounters Date Type Department Care Team (Late st Contact Info) Description 03/29/2024 11:20 AM EDT Office Visit Cardiology at [address] [place] [address] Izaiah Meyer MD [facility] [place] [address] documented as of this encounter Visit Diagnoses Not on filedocumented in this encounter Care Teams Brake Adjuster Relationship Specialty Start Date End Date Rosie Mathews MD [address] [place] [address] PCP - General Family Medicine 11/25/17 11/23/23 documented as of this encounter
--- NOTE | 2024-02-24 20:00 | RT.EKG_ITS ---
APPROVED REPORT Exam: Resting ECG Reason for Exam: back pain Patient Location: E HR:44 bpm ECG Measurements Heart Rate 44 AXIS [place] 251 P 11 QRSd 101 QRS -43 QT 481 T -23 QTc 411 Conclusion Sinus bradycardia, rate 44 1st degree HB, [place] interval 251 LVH Biphasic T waves lead III, aVF unchanged from priors No STEMI
--- NOTE | 2024-02-24 20:45 | ED.GENADUL_ITS ---
Discharge Plan Disposition Patient Disposition: Home Condition: Stable Discharge Details Chief Complaint: Nk/Back Pain Clinical Impression: Back pain, Chronic thoracic aortic dissection, CAD (coronary artery disease) Primary Care Provider: Rosie Mathews ED Provider: Jennifer Kumar Home Meds and New Rx's Prescriptions: No Action vitamin E 100 UNIT capsule 100 unit PO DAILY Patient Comments: Pt. takes 1000 IU QD. ascorbate calcium (vitamin C) 500 MG tablet 1 tab PO DAILY aspirin 81 MG tablet,chewable 1 tab PO DAILY vitamin B complex [B-Complex] 1 EACH tablet 1 tab PO DAILY clopidogrel 75 mg tablet 75 mg PO DAILY nitroglycerin 0.4 mg tablet, sublingual 0.4 mg sublingual Q5M losartan 50 mg tablet 50 mg PO DAILY Patient Comments: TAKE ONE TABLET BY MOUTH EVERY DAY oxybutynin chloride 5 mg tablet 5 mg PO DAILY Patient Comments: TAKE ONE TABLET BY MOUTH AT BEDTIME NEEDED atorvastatin 80 mg tablet 80 mg PO DAILY spironolactone 25 mg tablet 25 mg PO DAILY metoprolol succinate 25 mg tablet extended release 24 hr 25 mg PO DAILY Discharge Instructions Instructions: Upper Back Pain (DC) Additional Instructions: You were seen in the emergency department today for evaluation of back pain that was worse when you breathe. In our department you had a full physical examination performed, your EKG was unchanged from priors and there was no evidence of damage to your heart. We did do a CT scan to look for blood clots in your lungs, which we did not note, and there was no other abnormality in your lungs to account for your symptoms today. We did discuss your aortic aneurysm with a vascular surgeon, who did not note any change that would cause this concern today, though certainly it is possible that this will require ongoing monitoring if you have chest or back pain that worsens, develop numbness, tingling, or other changes in 1 side of your body or the other, or have any other concerns. You should follow-up with your primary care provider in the next few days to discuss this visit and any symptoms that change, worsen, or persist. Please return to the emergency department with sudden change or worsening of your chest or back pain, shortness of breath, change in responsiveness, or any other symptoms that cause concern. Thank you for allowing us to be part of your care. HPI General Mode of arrival: ambulatory . Date/Time Provider Initiated Documentation: 02/24/24 19:51 . Limitations to Documentation: no limitations . Information obtained by: patient, family and old records reviewed . HPI Narrative: MDM: In brief, this is an 83-year-old female patient with a past medical history significant for CAD, aortic aneurysm, who was evaluated earlier today for chest pain and had a negative cardiac workup, presenting for pleuritic back pain. My differential includes but is not limited to ACS including STEMI, NSTEMI, unstable angina, certainly considered pulmonary embolism. I reviewed the chest x-ray obtained earlier today, which showed no parenchymal abnormalities such as pneumonia, pneumothorax, pleural effusion, or pulmonary edema. She has no wheezing to suggest reactive airway disease exacerbation. I certainly considered aortic dissection and aneurysm given her history of same, though her mediastinum appeared normal on x-ray imaging today and she is without neurodeficit on my physical examination. She has no physical exam evidence for DVT. No GI symptoms such as vomiting to suggest Boerhaave's or esophagitis, no abdominal pain to suggest gastritis/peptic ulcer disease or pancreatitis. No positionality to suggest pericarditis or myocarditis, no reproduction on palpation to suggest costochondritis or chest wall pain and no overlying skin changes to suggest herpes zoster. I will repeat an EKG as well as laboratory studies to include CBC, CMP, troponin, and we will obtain a D-dimer. The patient had a noninfectious urinalysis, and did not have any evidence of hematuria to suggest renal stones on her workup earlier today. ED Course: I independently interpreted the laboratory studies, which show no significant leukocytosis, anemia, or thrombocytopenia. The chemistry panel is without evidence of electrolyte abnormality, kidney dysfunction, or liver injury. Troponin was obtained at 0 and 1 hour and was 16, with no delta troponin change, which in the setting of her nonischemic EKG and her symptoms is adequate for rule out per our high-sensitivity troponin pathway. Her D-dimer was elevated, and we proceeded with CT pulmonary embolism study, which was negative for embolism. Radiologist read measured her thoracic aortic aneurysm at 5.5 cm, which is increased from the prior radiology read 4.8 obtained in October of this year. For this reason I reached out to vascular surgery at [facility], who independently reviewed the imaging and disagrees with the size, stating that it measures 4.8 and is unchanged in appearance. Of course, this study was not time to evaluate the aorta definitively for dissection, though the surgeon sees no abnormalities or changes that significantly increases concern for dissection. I did shared decision-making conversation with the patient, and at this time I do believe that the risks of repeat contrast load in an elderly patient with slightly decreased GFR outweigh the benefit of obtaining a CT aorta study in this patient with atypical symptoms, no neurodeficits, and a stable blood pressure. The patient's back pain resolved spontaneously while under my care in the emergency department, and at this time, the patient has had a full medical evaluation and is safe for discharge to home. They are hemodynamically stable, ambulatory, and tolerating PO. They are understanding of the follow-up plan and return precautions. They left our facility without incident. Jennifer Kumar MD HPI: This is a 83-year-old female patient with a history of CAD, aortic aneurysm, presenting for evaluation of back pain. The patient was seen here this morning for a cardiac workup for chest pain, at which time she had reassuring laboratory studies and EKG was discharged home with a plan for outpatient follow-up. She reports that she initially felt quite well, but then noticed some left back pain that was worse with a deep breath. She reports that she is not experiencing any chest pain, has not had a cough, fever, or vomiting. Her pain was significant enough with each breath that she read presented for evaluation. The patient has no personal thromboembolic history, takes a daily aspirin but is not on anticoagulation. Reports that she did not try any medications in the outside environment to manage the symptoms. The patient states that her last heart attack did have a component of back pain, prompting her concern. Exam: Gen: Awake and alert, in no apparent distress HEENT: Non-icteric sclera Neck: Supple Lungs: No apparent respiratory distress, normal respiratory effort. Lung sounds are clear and equal bilaterally with no wheezes, rhonchi, rales CV: Appears well perfused, heart with regular rate and rhythm, strong and symmetrical distal pulses. Chest wall is without tenderness or skin changes Abdomen: Non-distended, soft, nontender. MSK: Moves 4 extremities without apparent limitation in ROM. No unilateral calf swelling or tenderness Skin: Visualized skin without rashes, cyanosis. Neuro: Normal Gait, no obvious focal deficits or facial asymmetry. Speaks in full, clear sentences. Psych: Appropriate for situation. Related Data Home Medications ?Medication ?Instructions ?Recorded ?Confirmed ascorbate calcium (vitamin C) 500 1 tab PO DAILY 11/25/14 02/24/24 mg tablet aspirin 81 mg chewable tablet 1 tab PO DAILY 11/25/14 02/24/24 vitamin B complex (B-Complex 1 tab PO DAILY 11/25/14 02/24/24 tablet) vitamin E 100 unit capsule 100 unit PO DAILY 11/25/14 02/24/24 losartan 50 mg tablet 50 mg PO DAILY 02/12/22 02/24/24 oxybutynin chloride 5 mg tablet 5 mg PO DAILY 02/12/22 02/24/24 clopidogrel 75 mg tablet 75 mg PO DAILY 11/18/23 02/24/24 nitroglycerin 0.4 mg sublingual 0.4 mg sublingual Q5M 11/18/23 02/24/24 tablet atorvastatin 80 mg tablet 80 mg PO DAILY 02/24/24 02/24/24 metoprolol succinate 25 mg 25 mg PO DAILY 02/24/24 02/24/24 tablet,extended release 24 hr spironolactone 25 mg tablet 25 mg PO DAILY 02/24/24 02/24/24 Allergies Allergy/AdvReac Type Severity Reaction Status Date / Time hydrocodone Allergy Intermediate Itching Unverified 02/24/24 20:01 oxycodone HCl (From Percocet) Allergy Intermediate Itching Unverified 02/24/24 20:01 prednisone Allergy Intermediate Swelling/Ed Unverified 02/24/24 20:01 acosta General Stated Complaint: Nk/Back Pain BRADLEY: 3 Course Vital Signs Vital signs: Vital Signs Temperature 35.1 C L 02/24/24 19:56 Pulse 51 L 02/24/24 19:56 Respiratory Rate 18 02/24/24 19:56 Blood Pressure 163/69 H 02/24/24 19:56 Pulse Oximetry 98 02/24/24 19:56 Temperature 35.1 C L 02/24/24 19:56 Pulse 51 L 02/24/24 19:56 Respiratory Rate 18 02/24/24 19:56 Respiratory Effort Normal 02/24/24 20:00 Blood Pressure 163/69 H 02/24/24 19:56 Blood Pressure Position Sitting 02/24/24 19:56 Pulse Oximetry 98 02/24/24 19:56 Oxygen Delivery Method Room Air 02/24/24 19:56 Oxygen Flow Rate 0 02/24/24 19:56 Medical Decision Making Quality:SDOH Health Related Social Needs: Health related social needs details pt reports she has nt been sick in 2- years. reports once she was at [facility] she felt she caught a cold. PFSH All Active Problems (Updated 02/25/24 @ 00:04 by Jennifer Kumar MD) CAD (coronary artery disease) (Chronic) Chronic thoracic aortic dissection (Acute) Back pain (Acute) Chest pain, unspecified (Acute) Tachyarrhythmia (Chronic) Tinnitus, bilateral (Acute) Sensorineural hearing loss of both ears (Acute) Medical History (Updated 02/25/24 @ 00:04 by Jennifer Kumar MD) Aortic arch aneurysm CAD (coronary artery disease), [place] coronary artery Social History Smoking/Tobacco Use Status: Former Tobacco Use Smoking risk assessment performed?: Yes Alcohol Intake: never Drug use: Never Substance use type: does not use Housing: apartment Do you feel safe at home: Yes Do you feel safe in your relationship?: Yes
[2024-02-24 20:54] LABS: Abs Immature Grans 0.01 10^3/uL (0.0-0.06); Absolute Basophil Count 0.05 10^3/uL (0.0-0.2); Absolute Lymphocyte Count 1.63 10^3/uL (1.2-3.4); Absolute Monocyte Count 0.73 10^3/uL (0.1-0.8); Absolute Neutrophil Count 2.63 10^3/uL (1.2-6.7); Basophils % 0.9 %; Eosinophils % 5.6 %; HCT 38.3 % (36.0-46.0); HGB 13.1 g/dL (11.2-15.7); Immature Grans % 0.2 %; Lymphocytes % 30.5 %; MCH 33.7 pg (27.0-33.0); MCHC 34.2 % (32.0-36.0); MCV 99 fL (80-95); MPV 11.3 fL (8.0-11.0); Monocytes % 13.6 %; Neutrophils % 49.2 %; Platelet Count 179 10^3/uL (130-400); RBC 3.89 10^6/uL (3.93-5.22); RDW 14.3 % (11.7-14.6); RDW-SD 52.2 fL; WBC 5.35 10^3/uL (4.4-10.8)
[2024-02-24 21:12] LABS: ALT 27 U/L (14-59); AST 24 U/L (15-37); Albumin 3.4 g/dL (3.4-5.0); Alkaline Phosphatase 48 U/L (46-116); Anion Gap 6.2 mmol/L (3-11); BUN 19 mg/dL (7-18); Bilirubin, Total 0.52 mg/dL (0.2-1.0); CO2 27.8 mmol/L (21.0-32.0); CREATININE 1.1 mg/dL (0.55-1.02); Calcium 9.1 mg/dL (8.5-10.1); Chloride 107 mmol/L (98-107); Estimated GFR 49.55 (mL/min/1.73m2); Glucose 95 mg/dL (74-106); Magnesium 1.8 mg/dL (1.8-2.4); Potassium 3.5 mmol/L (3.5-5.1); Sodium 141 mmol/L (136-145); Total Protein 6.6 g/dL (6.4-8.2); Troponin I 16 ng/L (4-51)
[2024-02-24 21:26] LABS: D-Dimer 827 ng/mlFEU (<500)
[2024-02-24] MEDS: Omnipaque 350 MG/ML 100 ML BTL IJ (21:43)
[2024-02-24] MEDS: Normal Saline - Diluent 50 ML VIAL IJ (21:44)
--- NOTE | 2024-02-24 21:56 | DI.CT_ITS ---
Exam(s) CT CHEST PE CTA EXAM: CT CHEST PE CTA CLINICAL HISTORY: Eval PE. TECHNIQUE: Imaging Protocol: Axial CT angiography was performed with multi-slice acquisition and mu lti-planar and/or 3D reconstructions. CONTRAST MATERIAL: Intravenous: Omnipaque 350 contrast volume:65 mL COMPARISON: CT CT CHEST PE CTA from 10/30/2023 FINDINGS: There is artifact in the upper right chest due to the patient's right total reverse shoulder replace ment. Tracheobronchial tree: Patent where visualized. No bronchiectasis. Pulmonary parenchyma: No consolidation or dominant measurable mass. No architectural distortion. Ther e is a calcified granuloma in the right lung. Pulmonary Arteries: No evidence of filling defect to suggest pulmonary emboli. Mediastinum and Chloe: No dominant adenopathy or fluid collection. The esophagus is unremarkable. Visualized thyroid gland: Unremarkable. Pleura: No effusion or pneumothorax. Heart: Cardiomegaly. Three vessel coronary artery calcification. No pericardial effusion. Aorta: The ascending thoracic aorta measures 5.1 x 4.8 cm. Atherosclerotic calcification is present. Due to the timing focused on the pulmonary arteries, thoracic aortic opacification is suboptimal fo r evaluation of dissection. Upper abdomen: Cholelithiasis. Soft tissues: Unremarkable. Bones: Within normal limits for the patient's age.The patient has a right total reverse shoulder repl acement. IMPRESSION: 1. No evidence of a pulmonary embolism. 2. Ascending thoracic aortic aneurysm. 3. No acute pulmonary process. RADIATION DOSE DELIVERED: 108.29mGy.cm Total DLP DATA REPOSITORY: All CT scans at this facility are submitted to the National Radiology Data Registry (NRDR) Dose Index Registry (DIR) with the [employer] ([employer]). RADIATION OPTIMIZATION: All CT scans at this facility use at least one of these dose optimization te chniques: automated exposure control; mA and/or kV adjustment per patient size (includes targeted exa ms where dose is matched to clinical indication); or iterative reconstruction.
[2024-02-24 22:02] LABS: Troponin I 16 ng/L (4-51)
--- NOTE | 2024-02-24 22:32 | DI.VRAD_ITS ---
PROCEDURE INFORMATION: Exam: CTA Chest With Contrast Exam date and time: 02/24/2024 9:45 PM Age: 83 years old Clinical indication: Pain; Chest pressure; Prior surgery; Surgery date: 6+ months; Surgery type: Shoulder replacement; Patient HX: Eval pe TECHNIQUE: Imaging protocol: Computed tomographic angiography of the chest with contrast. Exam focused on the arteries. 3D rendering (Not supervised by radiologist): MIP and/or 3D reconstructed images were created by the technologist. Radiation optimization: All CT scans at this facility use at least one of these dose optimization techniques: automated exposure control; mA and/or kV adjustment per patient size (includes targeted exams where dose is matched to clinical indication); or iterative reconstruction. Contrast material: [id number]; Contrast volume: 65 ml; Contrast route: INTRAVENOUS (IV); COMPARISON: CT THORAX ABD/PEL CTA 11/18/2023 2:50 PM FINDINGS: Pulmonary arteries: No pulmonary embolism. Aorta: Aortic contrast is low, limiting evaluation for dissection. The ascending thoracic aorta is aneurysmal, 5.5 cm diameter. Lungs: Unremarkable. No consolidation. No masses. Pleural spaces: Unremarkable. No pneumothorax. No pleural effusion. Heart: Mild cardiomegaly. No pericardial effusion. Moderate coronary artery calcifications. Correlate for coronary artery stents. Lymph nodes: Unremarkable. No enlarged lymph nodes. Gallbladder and biliary ducts: Gallbladder is collapsed. Small calcified stones are noted in the gallbladder. Bones/joints: No compression fractures. Moderate multilevel disc space narrowing, osteophyte formation, and endplate sclerosis are noted in the thoracic spine. Moderate arthropathy is noted in the left shoulder. Shoulder replacement is noted on the right. Soft tissues: Unremarkable. IMPRESSION: 1. No pulmonary embolism. 2. Aneurysm of the ascending thoracic aorta. 3. Mild cardiomegaly. 4. Cholelithiasis. Dictated and Authenticated by: Enrique Camargo MD. Ordering:SUKHI Linton MD
[2024-02-25] VITALS: PULSE 50; RESP 19; O2SAT 95
[2024-02-25 00:01] VITALS: BP 147/39; PULSE 50; PULSE 53; RESP 21; O2SAT 94
[2024-02-25 00:10] VITALS: PULSE 54; RESP 17; O2SAT 97
--- NOTE | 2024-02-28 08:51 | NUR.NOTE ---
Access chart to reconcile EKG's in Infin[facility] and EKG orders. Duplicate EKG order cancelled. Nursing Note:
== END 2024-02-25 00:27 | disposition home or self-care (01) ==
LOC: ER 02-25 00:04 → RED 02-25 00:27
PROVIDERS: Emergency Provider Emergency Medicine; PCP Family Medicine
DX: M54.50 Low back pain, unspecified (principal); I71.21 Aneurysm of the ascending aorta, without rupture; I25.10 Atherosclerotic heart disease of native coronary artery without angina pectoris; Z79.02 Long term (current) use of antithrombotics/antiplatelets; Z79.82 Long term (current) use of aspirin; Z87.891 Personal history of nicotine dependence
CPT/HCPCS: 36415; 71275; 80053; 93005; 99285; 83735; 84484; 85025; 85379; 93010; 99284; J3490

== ENCOUNTER 2024-03-14 10:00 | Outpatient (RCR) | payer OTHER, SELFPAY ==
--- OUTSIDE RECORDS SUMMARY | 2024-02-22 10:38 | XMS_ITS | Encounter Summary ---
Author Organization [facility] Address [facility] [place] [address] Care Team Providers Care Cashier Host/Hostess Name Role Phone Rosie Mathews MD Primary Care Provider Encounter Details Date Type Department Care Team (Late st Contact Info) Description 11/18/2023 Telephone Cardiology at [address] [address] Cheryl Guzman MD [facility] [place] [address] Social History Tobacco Use Types Packs/Day Years Used Date Smoking Tobacco: Former Smokeless Tobacco: Never Alcohol Use Standard Drinks/Week Comments Not Currently 0 (1 standard drink = 0.6 oz pur e alcohol) [facility] Utilities Answer Date Recorded In the past 12 months has e electric, gas, oil, or water [employer] threatened to shut off services in your [...] in a long-term (including now)? No 11/01/2023 IPV Inpatient Questions [...] contact time: 6:25 PM Referring Provider: Radu iGron MD Patient Location: ED, [facility] Past Medical History: [place] [place] status-post revasc) Presenting Symptoms per OSH: Lyla Goodrich is a 83 y.o. woman who presents to [facility] with an episode of chest pain. [place] [facility] [place] NSTEM[place] status-post PCI to [...] today's values. 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 Recommend admission for observation to assess for [...] 11:20 AM EDT Office Visit Cardiology at [address] [phone] Izaiah Meyer MD [facility] [place] [address] documented as of this encounter Visit Diagnoses Not on filedocumented in this encounter Care Teams Cashier Host/Hostess Relationship Specialty Start Date End Date Rosie Mathews MD [address] [place] [address] PCP - General Family Medicine 11/25/17 11/23/23 documented as of this encounter
--- OUTSIDE RECORDS SUMMARY | 2024-02-22 10:38 | XMS_ITS | Encounter Summary ---
Author Organization [facility] Address [facility] [place] [address] Care Team Providers Care It Manager Name Role Phone Masood Pierson MD Primary Care Provider [phone] Encounter Details Date Type Department Care Team (Latest Contact Info) Description 11/24/2023 Travel Social History Tobacco Use Types Packs/Day Years Used Date Smoking Tobacco: Former Smokeless Tobacco: Never Alcohol Use Standard Drinks/Week Comments Not Currently 0 (1 standard drink = 0.6 oz pur e alcohol) [facility] Utilities Answer Date Recorded In the [...] AM EDT Office Visit Cardiology at [address] [address] Izaiah Meyer MD [facility] [place] [place] [address] documented as of this encounter Visit Diagnoses Not on filedocumented in this encounter Care Teams It Manager Relationship Specialty Start Date End Date Masood Pierson MD [address] [place] [address] PCP - General Family Medicine 11/24/23 documented as of this encounter
--- OUTSIDE RECORDS SUMMARY | 2024-02-22 10:38 | XMS_ITS | Clinical Summary ---
Author Organization [facility] Address [facility] [place] [address] Care Team Providers Care Mold Clamper Name Role Phone Masood Pierson MD Primary Care Provider [phone] Allergies Active Allergy Reactions Criticality Noted Date [...] Prox 60 Mid 80 3.5 x 15 [place] 3.5 x 15 [place] RCA Mid AoCTO. Collats from Cx 4.0 x 38 [place] NB: RCA initially intervened; Cx 2 days [...] Care Team Description 12/16/2023 Telephone Cardiology at [address] [address] Izaiah Meyer MD 11/24/2023 10:40 AM EDT Office Visit Cardiology at [address] [address] Izaiah Meyer MD ASCVD (arteriosclerotic cardiovascular disease); Cardiomyopathy, ischemic; Ascending aorta dilatation; Hyperpiesia 11/24/2023 Travel from Last 3 Months Social History Tobacco Use Types Packs/Day Years Used Date Smoking Tobacco: Former Smokeless Tobacco: Never Alcohol Use Standard Drinks/Week Comments Not Currently 0 (1 standard drink = 0.6 oz pur e alcohol) [facility] Utilities Answer Date Recorded In the past 12 months has th e [employer], gas, oil, or water [employer] threatened to shut off services in your [...] AM EDT Office Visit Cardiology at [address] [phone] Izaiah Meyer MD [facility] [place] [address] Health Maintenance Due Date Last Done Comments [...] EKG 12-LEAD Routine 11/24/2023 11:09 AM EDT from Last 3 Months Results * EKG 12 Lead (11/24/2023 11:09 AM EDT) Ventricular rate 51 BPM MUSE SYSTEM Atrial Rate 51 BPM MUSE SYSTEM P-R Interval 228 ms MUSE SYSTEM QRS Duration 96 ms MUSE SYSTEM Q-T Interval 482 ms MUSE SYSTEM QTC Calculated (Bezet) 444 ms MUSE SYSTEM Calculated P [place] 79 degrees MUSE SYSTEM Calculated R [place] -39 degrees MUSE SYSTEM Calculated T [place] -49 degrees MUSE SYSTEM INTERPRETATION Sinus bradycardia [...] Anterolateral leads Confirmed by MD Meyer Daniel ([id number]) on 12/10/2023 2:50:44 PM MUSE SYSTEM 11/24/2023 11:0 9 AM EDT 12/10/2023 2:50 PM EDT Unknown ECG ORDERABLES MUSE SYSTEM from Last 3 Months Advance Directives * Attempt Cardiopulmonary Resuscitation - Inpatient (Latest Code Status on File) Date Activated Date Inactivated Comments 10/30/2023 9:58 PM 11/03/2023 7:13 PM Question Answer Comments Code Status decision made by: Patient Care Teams Mold Clamper Relationship Specialty Start Date End Date Masood Pierson MD [address] [place] [address] PCP - General Family Medicine 11/24/23
--- OUTSIDE RECORDS SUMMARY | 2024-02-22 10:38 | XMS_ITS | Encounter Summary ---
Author Organization [facility] Address [facility] [place] [address] Care Team Providers Care Director Call Center Sales Name Role Phone Rosie Mathews MD Primary Care Provider [phone] Encounter Details Date Type Department Care Team (Late st Contact Info) Description 11/18/2023 External Results Administration [facility] [place] [address] Social History Tobacco Use Types Packs/Day Years Used Date Smoking Tobacco: Former Smokeless Tobacco: Never Alcohol Use Standard Drinks/Week Comments Not Currently 0 (1 standard drink = 0.6 oz pur e alcohol) [facility] Utilities Answer Date Recorded In the [...] 11:20 AM EDT Office Visit Cardiology at [address] [phone] Izaiah Meyer MD [facility] [place] [address] documented as of this encounter Procedures Procedure Name Priority Date/Time Associated Diagnosis Comments ECG SCAN Routine 11/18/2023 4:50 PM EDT documented in this encounter Results * Scan Doc: ECG (11/18/2023 4:50 PM EDT) Historical Provider MEDIA MGR SCAN EX T ORDR/RSLT documented in this encounter Visit Diagnoses Not on filedocumented in this encounter Care Teams Director Call Center Sales Relationship Specialty Start Date End Date Rosie Mathews MD [address] [place] [address] PCP - General Family Medicine 11/25/17 11/23/23 documented as of this encounter
--- OUTSIDE RECORDS SUMMARY | 2024-02-22 10:38 | XMS_ITS | Encounter Summary ---
Author Organization [facility] Address [facility] [address] Care Team Providers Care Tire Worker Name Role Phone Rosie Mathews MD Primary Care Provider [phone] Reason for Visit * Reason Onset Date Comments Referral 11/03/2023 Coronary Artery Disease 11/03/2023 Encounter Details Date Type Department Care Team (Late st Contact Info) Description 11/03/2023 Telephone Cardiology at [address] [address] Andressa Machado, business support assistant; Coronary Artery Disease Social History Tobacco Use Types Packs/Day Years Used Date Smoking Tobacco: Former Smokeless Tobacco: Never Alcohol Use Standard Drinks/Week Comments Not Currently 0 (1 standard drink = 0.6 oz pur e alcohol) [facility] Utilities Answer Date Recorded In the past 12 months has e [employer], gas, oil, or water [employer] threatened to shut off services in your [...] were not included. [facility] [address] [place] [phone] Lyla was referred to this Cardiology clinic in [place] for post cardiac cath 10/31 for STEMI follow up as part of [place] [facility] [place] documented in this encounter Plan of Treatment Upcoming Encounters Date Type Department Care Team (Late st Contact Info) Description 03/29/2024 11:20 AM EDT Office Visit Cardiology at [address] [place] [address] Izaiah Meyer MD [facility] [place] [address] documented as of this encounter Visit Diagnoses Not on filedocumented in this encounter Care Teams Tire Worker Relationship Specialty Start Date End Date Rosie Mathews MD [address] [place] [address] PCP - General Family Medicine 11/25/17 11/23/23 documented as of this encounter
--- OUTSIDE RECORDS SUMMARY | 2024-02-22 10:38 | XMS_ITS | Encounter Summary ---
Author Organization [facility] Address [facility] [place] [address] Care Team Providers Care Automobile Leasing Supervisor Name Role Phone Masood Pierson MD Primary Care Provider [phone] Reason for Visit * Reason Comments Establish Care Coronary Artery Disease Encounter Details Date Type Department Care Team (Latest Contact Info) Description 11/24/2023 10:40 AM EDT Office Visit Cardiology at [address] [place] [address] Izaiah Meyer MD [facility] [place] [address] ASCVD (arteriosclerotic cardiovascular disease); Cardiomyopathy, ischemic; Ascending aorta dilatation; Hyperpiesia Social History Tobacco Use Types Packs/Day Years Used Date Smoking Tobacco: Former Smokeless Tobacco: Never Alcohol Use Standard Drinks/Week Comments Not Currently 0 (1 standard drink = 0.6 oz pur e alcohol) [facility] Utilities Answer Date Recorded In the past [...] Prox 60 Mid 80 3.5 x 15 Andrea 3.5 x 15 Erin RCA Mid AoCTO. Collats from Cx 4.0 [...] y.o. female. HPI: 83 [facility]. She has a recent [...] rehab. [facility] SBP very well controlled at home [...] 11:20 AM EDT Office Visit Cardiology at [address] [place] [phone] Izaiah Meyer MD [facility] [place] [address] documented as of this encounter Visit Diagnoses Diagnosis ASCVD (arteriosclerotic cardiovascular disease) Unspecified cardiovascular disease Cardiomyopathy, ischemic Other specified forms of chronic ischemic heart disease Ascending aorta dilatation Thoracic aortic ectasia Hyperpiesia Unspecified essential hypertension documented in this encounter Care Teams Automobile Leasing Supervisor Relationship Specialty Start Date End Date Masood Pierson MD [address] [place] [address] PCP - General Family Medicine 11/24/23 documented as of this encounter
--- OUTSIDE RECORDS SUMMARY | 2024-02-22 10:38 | XMS_ITS | Encounter Summary ---
Author Organization [facility] Address [facility] [place] [address] Care Team Providers Care Door To Door Lead Generation Name Role Phone Masood Pierson MD Primary Care Provider [phone] Encounter Details Date Type Department Care Team (Late st Contact Info) Description 12/16/2023 Telephone Cardiology at [address] [place] [address] Izaiah Meyer MD [facility] [place] [address] Social History Tobacco Use Types Packs/Day Years Used Date Smoking Tobacco: Former Smokeless Tobacco: Never Alcohol Use Standard Drinks/Week Comments Not Currently 0 (1 standard drink = 0.6 oz pur e alcohol) [facility] Utilities Answer Date Recorded In the past 12 months has [employer], gas, oil, or water [employer] threatened to shut off services in your [...] Denise, [facility] Cardiac quality analyst, called to report that at today's session [...] AM EDT Office Visit Cardiology at [address] [place] [address] Izaiah Meyer MD [facility] [place] [place] [address] documented as of this encounter Visit Diagnoses Not on filedocumented in this encounter Care Teams Door To Door Lead Generation Relationship Specialty Start Date End Date Masood Pierson MD [address] [place] [address] PCP - General Family Medicine 11/24/23 documented as of this encounter
--- OUTSIDE RECORDS SUMMARY | 2024-02-22 10:39 | XMS_ITS | Encounter Summary ---
Author Organization [facility] [place] [address] Care Team Providers Care Campus Monitor Name Role Phone Rosie Mathews MD Primary Care Provider [phone] Reason for Visit * Auth/Cert (Routine) Specialty Diagnoses / Procedures Referred By Contbruce t Referred To Contact Diagnoses Unstable angina Chest pain NSTEMI Procedures CARDIAC CATHETERIZATION Rosa Dewey MD [facility] [place] [address] [facility] Referral ID Status Reason Start Date Expiration Date Visits Re quested Visits Authorized [id number] 1 1 Encounter Details Date Type Department Care Team (Late st Contact Info) Description 11/01/2023 3:33 PM EDT - 11/01/2023 5:[address] [place] [address] Rosa Dewey MD [facility] [address] [place], [place] [id number] CARDIAC CATHETERIZATION Social History Tobacco Use Types Packs/Day Years Used Date Smoking Tobacco: Former Smokeless Tobacco: Never Alcohol Use Standard Drinks/Week Comments Not Currently 0 (1 standard drink = 0.6 oz pur e alcohol) [facility] Utilities Answer Date Recorded In the [...] for hypertension and hyperlipidemia who presented to [facility] as a transfer from [facility] as a possible STEMI alert with acute onset chest pain. The patient reports that her symptoms initially began on Tuesday when she was walking to [facility] and experienced bilateral arm heaviness while walking with no other symptoms. Then, this afternoon shereports developing bilateral achy shoulder pain and nonradiating substernal left-sided chest pressure that was 7/10 in severity after coming home from hinduism. The patient denies any associated fevers, chills, diaphoresis, lightheadedness/dizziness, syncope/presyncope, dyspnea (either at rest or on exertion), palpitations, orthopnea, or PND. The patient subsequently presented to [facility] as a walk-in for further [...] on repeat, her TRU resolved. Cardiology at [facility] was consulted for transfer; the patient was loaded with aspirin 324 mg and ticagrelor 180 mg, started on a heparin drip, and given nitroglycerin with improvement in chest pain. Upon arrival to [facility], the patient was taken directly to the [facility] [place]. Two lesions were discovered: one in the prox RCA (felt to almost be a CREDIT COLLECTIONS MANAGER but they were able to wire, [...] dose administered prior to arrival in the bottle labeler. Recommended anti-platelet/anti-thrombotic regimen: Continue aspirin 81 mg [...] and low lung volumes. Findings similar to sales representative raw fibers radiograph from CT 10/30/2023. Pending Studies and [...] 10:40 AM Izaiah Meyer MD Cardiology at [place] Arrive at: [facility] [address] [phone] Future Orders Complete By Expires Referral to Cardiac Rehab [MSR852 Custom] As directed Process Instructions: If no [...] Santos for admission to Home Health. [address] [facility] [address] (home) Date of : 1940 Inpatient DOCUMENTATION FOR VNA SERVICES (INCLUDING THOSE PATIENTS WITH MEDICARE COVERAGE REQUIRING HOME VNA SERVICES AND/OR HOSPICE SERVICES) PATIENT'S LOCATION: Adin Santos [address] [facility] [address] (home) Cell: Telephone Information: Health Care Consultant's Name: self In discussion with the attending physician, it is certified that this patient is under their care and that they, or a Nurse Practitioner, Clinical Nurse specialist or Physician Career Manager who is working directly with them, [...] regarding health issues HOME HEALTH CARE AGENCY: [facility] [address] [address] START OF CARE: within 24-48 hours of [...] Rosie Mathews MD [address] / [facility] [address] . All A agencies which cover [...] MD / Dr. Masood Pierson [address] [place] [address] 11/09/23 1:55 PM arrival for 2:10 PM appointment Orthopedic Specialist: Izaiah Meyer MD [address] [place] [address] , 11/24/2023 10:40 AM Your Inpatient Medical Team at [facility] Name(s) of your inpatient provider(s): Attending physician: Rosa Hugo MD Resident physicians: Emile Robles MD; Elmer Tamez MD If you have non-emergent questions, prior to your follow-up visit call: Tuesday-Tuesday between the hours of 8AM-5PM please call the Cardiology Clinic [phone] to speak with a nurse. All other hours please call the Hospital Title I Paraprofessional [phone] and ask to speak to the conditioning coach on-call. Your Primary Care Provider Rosie Mathews MD [phone] For questions regarding this document or issues relating to this hospitalization on the Medical Service, please contact your inpatient physician through the [facility] Title I Paraprofessional . Issues afterhours and on weekends will be handled by the Orthopedic Specialist staff on-call. Associated attestation - Rosa [...] Mathews MD / Dr. Masood Pierson [address] [place] [address] 11/09/23 1:55 PM arrival for 2:10 PM appointment Orthopedic Specialist: Izaiah Meyer MD [address] [place] [address] , 11/24/2023 10:40 AM Your Inpatient Medical Team at [facility] Name(s) of your inpatient provider(s): Attending physician: Rosa Hugo MD Resident physicians: Emile Robles MD; Elmer Tamez MD If you have non-emergent questions, prior to your follow-up visit call: Tuesday-Tuesday between the hours of 8AM-5PM please call the Cardiology Clinic [phone] to speak with a nurse. All other hours please call the Hospital Title I Paraprofessional [phone] and ask to speak to the conditioning coach on-call. Your Primary Care Provider Rosie Mathews MD [phone] documented in this encounter Medications at Time [...] for hypertension and hyperlipidemia who presented to [facility] as a transfer from [facility] as a possible STEMI alert [...] for hypertension and hyperlipidemia who presented to [facility] as a transfer from [facility] as a possible STEMI alert [...] Resident on Cardiology Service Cardiology S1 (Pager [phone]) Note written in conjunction with Claudio Perla [...] Nirmala Webb - 11/01/2023 11:25 AM EDT Facilities Manager Encounter Note Patient Name: Adin Santos : [id number] MR#: [id number] Admit Date: 10/30/2023 5:11 PM Hospital Day 2 days Narrative: Self initiated visit to patient for Spiritual support in a regular unit rounds. Assessment: Patient is in the bathroom at the time of this visit. Not a good time for Cytology Supervisor visit. Intervention and Outcome: An attempted visit [...] for hypertension and hyperlipidemia who presented to [facility] as a transfer from [facility] as a possible STEMI alert [...] and low lung volumes. Findings similar to sales representative raw fibers radiograph from CT 10/30/2023. Scheduled Medications: [AUG [...] for hypertension and hyperlipidemia who presented to [facility] as a transfer from [facility] as a possible STEMI alert [...] Resident on Cardiology Service Cardiology S1 (Pager [phone]) Note written in conjunction with Claudio Perla [...] for hypertension and hyperlipidemia who presented to [facility] as a transfer from [facility] as a possible STEMI alert with acute onset chest pain. Active Problems: Active Hospital Problems Diagnosis Unstable angina Resolved Hospital Problems No resolved problems to display. 24 hr events: - Cath'd yesterday with lesion in the proximal RCA (initially thought it was CREDIT COLLECTIONS MANAGER but they were ableto wire, balloon [...] and low lung volumes. Findings similar to sales representative raw fibers radiograph from CT 10/30/2023. TTE (10/30): Interpretation [...] for hypertension and hyperlipidemia who presented to [facility] as a transfer from [facility] as a possible STEMI alert [...] Resident on Cardiology Service Cardiology S1 (Pager [phone]) Note written in conjunction with Claudio Perla [...] PCP: Rosie Mathews MD PCP phone number: [phone] Date of Admission: 10/30/2023 ( Hospital Day 0 days ) Attending:Rosa Cornejo MD ID: Adin Santos is a 83 y.o. female PMH significant for hypertension and hyperlipidemia who presented to [facility] as a transfer from [facility] as a possible STEMI alert with acute onset chest pain. The patient reports that her symptoms initially began on Tuesday when she was walking to [facility] and experienced bilateral arm heaviness while walking with no other symptoms. Then, this afternoon shereports developing bilateral achy shoulder pain and nonradiating substernal left-sided chest pressure that was 7/10 in severity after coming home from hinduism. The patient denies any associated fevers, chills, diaphoresis, lightheadedness/dizziness, syncope/presyncope, dyspnea (either at rest or on exertion), palpitations, orthopnea, or PND. The patient subsequently presented to [facility] as a walk-in for further [...] on repeat, her TRU resolved. Cardiology at [facility] was consulted for transfer; the patient was loaded with aspirin 324 mg and ticagrelor 180 mg, started on a heparin drip, and given nitroglycerin with improvement in chest pain. Upon arrival to [facility], the patient was taken directly to the [facility]. 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 Findings similar to sales representative raw fibers radiograph from CT 10/30/2023. Assessment & Plan: Adin Santos is a 83 y.o. female PMH significant for hypertension and hyperlipidemia who presented to [facility] as a transfer from [facility] as a possible STEMI alert [...] information for follow-up Home Health & Hospice, [place] [address] TANESHA BOYCE confirmed with [facility] that they will see the patient [...] N/A Patient is insured through: Primary Insurance: [employer] MANAGED MEDICARE Payor: [employer] MANAGED MEDICARE / Plan: [employer] MANAGED MEDICARE PPO / Product Type: *No [...] in the room. Electrolytes replaced, see MAR. clinical laboratory medical director sites remained C/D/I with baseline ecchymosis unchanged. Pt complained of back pain, lidocaine patch given. Right IV infiltrated during infusion, patient is marked with sharpie, IV removed. See flowsheet for I+O's and safety rounding. Patient is able to make needs known and call capps within reach. PLAN MOVING FORWARD: Monitor Tele, control BP, monitor bottle labeler sites, D/C Planning INDIVIDUALIZED FALL PREVENTION INTERVENTIONS: [...] and above on RA. PT went to bottle labeler today. Left fem site oozed throughout shift, [...] MOVING FORWARD: Monitor Tele, control BP, monitor bottle labeler sites, D/C Planning INDIVIDUALIZED FALL PREVENTION INTERVENTIONS: [...] surrogate would be surrogate decision maker per [place] surrogate decision making law. (Only good for 180 days) Any patient receiving care in [place] must abide by [place] law. The hierarchy for surrogate decision making [...] (i) The agent with financial power of personal injury attorney or a conservator appointed in accordance [...] has the electric, gas, oil, or water [employer] threatened to shut off services in your [...] toilet seat Home Address confirmed as: [address] [facility] [address] Social & Family Supports: All names listed below confirmed with patient as current and correct Extended Emergency Contact Information Primary Emergency Contact: Iris Downing Address: [address], [place] [id number] [place] [address] Mobile Relation: Child Secondary Emergency Contact: Karen More Address: [address] [facility] Mobile Relation: Child Current Care Provided by: self Provides Primary Care For: no one Caregiver if needed: child(emmanuel), adult Quality of Family relationships: involved, supportive Community Resources being provided currently: other (see comments) (receives [facility] services at home (1xweekly)) Behavioral Health History: [...] Specific Information: N/A Health/Prescription Coverage: Primary Insurance: [employer] MANAGED MEDICARE Payor: [employer] MANAGED MEDICARE / Plan: [employer] MANAGED MEDICARE PPO / Product Type: *No Product type* / Secondary Insurance: N/A Prescription Coverage: Yes Preferred Pharmacy: [id number] - [place], [place] - [address] [place] [id number] [place] Status: Patient is a : No Primary Care Provider listed: Masood Pierson MD [phone] Patient/Caregiver Goals of Treatment: home when MR Potential Needs for Transition of Care: home health care Agency Referrals: Not Applicable I have met with the patient to: discuss discharge planning needs. provide the [facility], Office of Care Management letter from the Stationary Plant Operators pertaining to rehab referrals. provide a letter describing our affiliations within the [facility] and educate about their right to choose where referrals are sent. provide a list of Home Health Agencies / Durable Medical Equipment vendors which serve their preferred geographic area. provided patient with [facility] Star Quality Rating handout. They have requested referrals to: [facility] [address] [place] [address] Note routed to a Fleet Mechanic who will communicate referrals to facilities and [...] results. PO hydralazine added for BP control. clinical laboratory medical director sites remain C/D/I, ecchymosis unchanged th roughout shift. See flowsheet for I+O's and safety rounding. Patient is able to make needs known and call capps within reach. PLAN MOVING FORWARD: Monitor Tele, control CP and BP, NPO at MD for cath, monitor bottle labeler sites, D/C Planning INDIVIDUALIZED FALL PREVENTION INTERVENTIONS: [...] AM EDT Office Visit Cardiology at [address] [place] [address] Izaiah Meyer MD [facility] [place] [address] Scheduled Referrals Name Type Priority Associated Diagnoses [...] Absolute 5.28 1.70 - 6.10 x10(3)/mc L [facility] Lymph % 15.2 % [facility] Lymphocytes Abs 1.3 0.9 - 3.2 x10(3)/mc L [facility] Monocyte % 16.9 % [facility] Monocyte Abs 1.4(H) 0.3 - 0.9 x10(3)/mc L [facility] Eos % 3.7 % [facility] Eosinophils Abs 0.3 0.0 - 0.4 x10(3)/ L [facility] Basophil % 0.5 % [facility] Baso Absolute 0.0 0.0 - 0.1 x10(3)/mc L [facility] Immature Gran % 0.40 % [facility] Comment: Immature granulocytes(IG's)percentage and absolute count will include metamyelocytes, myelocytes, and promyelocytes. Blood smears from CBCs yielding IG's will be scanned manually for concordance. If this scan disagrees with the automated IG or if promyelocytes are noted, a manual differential will be performed. Immature Gran Absolute 0.03 0.00 - 0.04 x10(3)/mc L [facility] Blood 11/03/2023 3:46 AM EDT 11/03/2023 4:11 AM EDT Narrative Resulting Agency Comment Spec In Lab Qamar Gallardo MD HEMATOLOGY ORDERABLE S [facility] [place] [address] * (ABNORMAL) Hemogram (11/03/2023 3:46 AM EDT) White Blood Cell 8.3 4.0 - 9.5 x10(3)/mc L [facility] Red Blood Cell 3.77(L) 4.00 - 5.21 x10(6)/mc L [facility] Hemoglobin 13.1 11.7 - 15.5 g/dL [facility] Hematocrit 38.0 35.7 - 45.8 % [facility] Mean Cell Volume 100.8(H) 82.6 - 94.4 fL [facility] Mean Cell Hemoglobin 34.7(H) 27.1 - 32.0 pg [facility] Mean Cell Hemoglobin Concentration 34.5 31.7 - 35.0 g/dL [facility] Platelet 181 145 - 357 x10(3)/mc L [facility] RDW Standard Deviation 54.7(H) 37.0 - 46.0 fL [facility] RDW coefficient of variation 14.6(H) 11.5 - 14.1 % [facility] Mean Platelet Volume 11.2 7.6 - 12.9 fL [facility] NRBC% auto 0.0 % [facility] NRBC Absolute 0.000 0.000 - 0.000 x10(3)/mc L [facility] Blood 11/03/2023 3:46 AM EDT 11/03/2023 4:11 AM EDT Narrative Resulting Agency Comment Spec In Lab Qamar Gallardo MD HEMATOLOGY ORDERABLE S Performing Organization Address City/[facility]/ZIP Co de Phone Number [facility] [place] [address] * Phosphorus (11/03/2023 3:46 AM EDT) Pathologist [facility] Phosphorus 3.2 2.5 - 4.5 mg/dL [facility] Comment:result rechecked-KS Blood 11/03/2023 3:46 AM EDT 11/03/2023 4:11 AM EDT Narrative Resulting Agency Comment Spec In Lab Roas Cornejo MD CHEMISTRY ORDERABLE S Performing Organization Address [facility] Co de Phone Number [facility] [place] [address] * Magnesium (11/03/2023 3:46 AM EDT) [facility] Magnesium 0.90 0.69 - 1.07 mmol/L [facility] Blood 11/03/2023 3:46 AM EDT 11/03/2023 4:11 AM EDT Narrative Resulting Agency Comment Spec In Lab Rosa Cornejo MD CHEMISTRY ORDERABLE S Performing Organization Address [facility] Co de Phone Number [facility] [place] [address] * (ABNORMAL) Basic Metabolic Panel (non-fasting) (11/03/2023 3:46 AM EDT) Pathologist [facility] Glucose 105 65 - 199 mg/dL [facility] Comment:Diabetes: >=200 mg/d L plus symptoms Blood Urea Nitrogen 13 8 - 18 mg/dL [facility] Creatinine 0.83 0.70 - 1.20 mg/dL [facility] Sodium 139 135 - 145 mmol/L [facility] Potassium 4.0 3.5 - 5.0 mmol/L [facility] Comment: Please note: ??Patients with WBC >100,000 may have falsely elevated Potassium levels. ??For accurate Potassium quantification in these patients send serum separator tube (gold top) for subsequent determinations. ??Contact the Clinical Chemistry Laboratory if there are any questions. Chloride 108(H) 98 - 107 mmol/L [facility] Carbon Dioxide 19(L) 22 - 31 mmol/L [facility] Anion Gap 12 5 - 15 mmol/L [facility] Calcium 8.2(L) 8.5 - 10.5 mg/dL [facility] Est Glomerular Filtration Rate 69 >=60 mL/min/1. 73 m?? [facility] Comment: This patient's estimated GFR [...] Lab Rosa Cornejo MD CHEMISTRY ORDERABLE S [facility] [place] [address] * EKG 12 Lead (11/02/2023 12:44 PM EDT) Ventricular rate 83 BPM MUSE SYSTEM Atrial Rate 83 BPM MUSE SYSTEM P-R Interval 216 ms MUSE SYSTEM QRS Duration 90 ms MUSE SYSTEM Q-T Interval 384 ms MUSE SYSTEM QTC Calculated (Bezet) 451 ms MUSE SYSTEM Calculated P [place] 92 degrees MUSE SYSTEM Calculated R [place] -51 degrees MUSE SYSTEM Calculated T [place] -33 degrees MUSE SYSTEM INTERPRETATION Sinus rhythm with 1st degree A-V block with Premature atrial complexes Left axis deviation Moderate voltage criteria for LVH, may be normal variant ( R in aVL , Golf product ) Anterolatera l infarct (cited on [...] RBC, Urine <1 0 - 4 /HPF [facility] Comment: Interpret results with caution, microscopic results are from suboptimal specimen volume WBC, Urine 16(H) 0 - 5 /HPF [facility] Comment: Interpret results with caution, microscopic results are from suboptimal specimen volume Bacteria, Urine Many(A) None /HPF [facility] Squamous Epithelial Cells Raw Data, Urine 10(H) <=4 /HPF [facility] Hyaline Casts, Urine 2 0 - 2 /LPF [facility] Comment: Interpret results with caution, microscopic results are from suboptimal specimen volume Clean Catch Urine 11/02/2023 11:40 AM EDT 11/02/2023 12:05 PM EDT Narrative Resulting Agency Comment Spec In Lab Elmer Tamez MD URINE ORDERABLES [facility] [place] [address] * (ABNORMAL) Urinalysis with reflex Culture (11/02/2023 11:40 AM EDT) Glucose, Urine Dipstick Negative Negative mg/dL [facility] Protein, Urine Dipstick 30(A) Negative mg/dL [facility] Bilirubin, Urine Dipstick Negative Negative mg/dL [facility] Comment: Clinical correlation required for positive Urine Bilirubin results as false positive may occur with some drugs and drug related products. If a false positive is suspected a serum total bilirubin should be considered if clinically indicated. Urobilinogen, Urine Dipstick Normal Normal mg/dL [facility] pH, Urn (dipstick) 5.5 5.0 - 8.0 [facility] Blood, Urine Dipstick Negative Negative mg/dL [facility] Ketone, Urine Dipstick Trace(A) Negative mg/dL [facility] Nitrite, Urine Dipstick Positive(A) Negative [facility] Leukocytes, Urine Dipstick Small(A) Negative [facility] Appearance, Urine Dipstick Cloudy(A) Clear [facility] Specific [place] Urine Automated >=1.030(A) 1.005 - 1.030 [facility] Color, Urine Dipstick Dark Yellow Yellow [facility] Reflex to Culture Yes [facility] Clean Catch Urine 11/02/2023 11:40 AM EDT 11/02/2023 12:04 PM EDT Narrative Resulting Agency Comment Spec In Lab Rosa Hugo MD URINE ORDERABLES [facility] [place] [address] * Respiratory Panel PCR (11/02/2023 10:15 AM EDT) Respiratory Panel Source TUTORING ASSISTANT Swab [facility] Respiratory Panel PCR Negative Negative [facility] Comment: Respiratory Panels are performed on the [employer], using multiplexed PCR nucleic acid detection. ??Negative results do not preclude respiratory infection and should not be used as the sole basis for diagnosis, treatment or other management decisions. Adenovirus Not Detected Not Detected [facility] Coronavirus HKU1 Not Detected Not Detected [facility] Coronavirus NL63 Not Detected Not Detected [facility] LABORATORY Coronavirus 229E Not Detected Not Detected [facility] Coronavirus OC43 Not Detected Not Detected [facility] SARS-CoV-2 Not Detected Not Detected [facility] Comment: Testing for SARS-CoV-2 (Severe acute respiratory syndrome coronavirus 2) to aid in the diagnosis of COVID-19 is performed using the BioFire Respiratory Panel 2.1 (iConText) as authorized by the FDA issued Emergency Use Authorization (EUA). This panel also tests for multiple other viral and bacterial pathogens. This assay is intended for In-vitro Diagnostic (IVD) use with nasopharyngeal swabs in viral transport media. The assay is performed based on the instructions for use and additional guidance provided by the FDA. Testing is performed in laboratories within the [facility], each of which is certified [...] fact sheets at the following FDA website: https://www.fda.gov/medical-devices/tkyfombjoxu-lvpodny-8627-iguha-72-yrtmnpsve- use-a qiawymclfkltq-gvnrhge-azcotnd/slihw-zbgymagfnnv-tyly Human Metapneumovirus Not Detected Not Detected [facility] Human Rhinovirus/Enterov irus Not Detected Not Detected [facility] Influenza A Not Detected Not Detected [facility] Influenza B Not Detected Not Detected [facility] Parainfluenza 1 Not Detected Not Detected [facility] Parainfluenza 2 Not Detected Not Detected [facility] Parainfluenza 3 Not Detected Not Detected [facility] Parainfluenza 4 Not Detected Not Detected [facility] Respiratory Syncytial Virus Not Detected Not Detected [facility] Chlamydophila pneumoniae Not Detected Not Detected [facility] Mycoplasma pneumoniae Not Detected Not Detected [facility] Nasopharyngeal Swab 11/02/19 10:15 AM EDT 11/02/2023 10:49 AM EDT Narrative Resulting Agency Comment Spec In Lab Rosa Hugo MD MICROBIOLOGY - GEN ERAL ORDERABLES [facility] [place] [address] * XR Chest One View (11/02/2023 2:51 AM EDT) WORKSTATION ID [id number] RAD Anatomical Region Laterality Modality Chest N/A [...] who have questions please contact the health insurance healthcare representative that requested your imaging first. ? [...] patients who have questions please contactthe health insurance healthcare representative that requested your imaging first. Rosa Hugo MD IMG DX ORDERABLES * (ABNORMAL) Differential, Automated (11/02/2023 12:35 AM EDT) Neutrophil % 76.5 % [facility] Neutrophil Absolute 7.69(H) 1.70 - 6.10 x10(3)/mc L [facility] Lymph % 8.3 % [facility] Lymphocytes Abs 0.8(L) 0.9 - 3.2 x10(3)/mc L [facility] Monocyte % 12.9 % [facility] Monocyte Abs 1.3(H) 0.3 - 0.9 x10(3)/mc L [facility] Eos % 1.4 % [facility] Eosinophils Abs 0.1 0.0 - 0.4 x10(3)/mc L [facility] Basophil % 0.4 % [facility] Baso Absolute 0.0 0.0 - 0.1 x10(3)/mc L [facility] Immature Gran % 0.50 % [facility] Comment: Immature granulocytes(IG's)percentage and absolute count will include metamyelocytes, myelocytes, and promyelocytes. Blood smears from CBCs yielding IG's will be scanned manually for concordance. If this scan disagrees with the automated IG or if promyelocytes are noted, a manual differential will be performed. Immature Gran Absolute 0.05(H) 0.00 - 0.04 x10(3)/mc L [facility] Blood 11/02/2023 12:3 5 AM EDT 11/02/2023 12:43 AM EDT Narrative Resulting Agency Comment Spec In Lab Qamar Gallardo MD HEMATOLOGY ORDERABLE S [facility] [place] [address] * (ABNORMAL) Hemogram (11/02/2023 12:35 AM EDT) White Blood Cell 10.0(H) 4.0 - 9.5 x10(3)/ L [facility] Red Blood Cell 4.06 4.00 - 5.21 x10(6)/mc L [facility] Hemoglobin 13.8 11.7 - 15.5 g/dL [facility] Hematocrit 39.8 35.7 - 45.8 % [facility] Mean Cell Volume 98.0(H) 82.6 - 94.4 fL [facility] Mean Cell Hemoglobin 34.0(H) 27.1 - 32.0 pg [facility] Mean Cell Hemoglobin Concentration 34.7 31.7 - 35.0 g/dL [facility] Platelet 198 145 - 357 x10(3)/mc L [facility] RDW Standard Deviation 52.1(H) 37.0 - 46.0 fL [facility] RDW coefficient of variation 14.3(H) 11.5 - 14.1 % [facility] Mean Platelet Volume 11.4 7.6 - 12.9 fL [facility] NRBC% auto 0.0 % [facility] NRBC Absolute 0.000 0.000 - 0.000 x10(3)/mc L [facility] Blood 11/02/2023 12:3 5 AM EDT 11/02/2023 12:43 AM EDT Narrative Resulting Agency Comment Spec In Lab Qamar Gallardo MD HEMATOLOGY ORDERABLE S [facility] [place] [address] * (ABNORMAL) Phosphorus (11/02/2023 12:35 AM EDT) Phosphorus 1.6(L) 2.5 - 4.5 mg/dL [facility] Blood 11/02/2023 12:3 5 AM EDT 11/02/2023 12:43 AM EDT Narrative Resulting Agency Comment Spec In Lab Rosa Cornejo MD CHEMISTRY ORDERABLE S Performing Organization Address City/[facility]/ZIP Co de Phone Number [facility] [place] [address] * Magnesium (11/02/2023 12:35 AM EDT) Magnesium 0.87 0.69 - 1.07 mmol/L [facility] Blood 11/02/2023 12:3 5 AM EDT 11/02/2023 12:43 AM EDT Narrative Resulting Agency Comment Spec In Lab Rosa Cornejo MD CHEMISTRY ORDERABLE S Performing Organization Address City/[facility]/ZIP Co de Phone Number [facility] [place] [address] * Basic Metabolic Panel (non-fasting) (11/02/2023 12:35 AM EDT) Glucose 125 65 - 199 mg/dL [facility] Comment:Diabetes: >=200 mg/d L plus symptoms Blood Urea Nitrogen 9 8 - 18 mg/dL [facility] Creatinine 0.83 0.70 - 1.20 mg/dL [facility] Sodium 136 135 - 145 mmol/L [facility] Potassium 3.6 3.5 - 5.0 mmol/L [facility] Comment: Please note: ??Patients with WBC >100,000 may have falsely elevated Potassium levels. ??For accurate Potassium quantification in these patients send serum separator tube (gold top) for subsequent determinations. ??Contact the Clinical Chemistry Laboratory if there are any questions. Chloride 102 98 - 107 mmol/L [facility] Carbon Dioxide 25 22 - 31 mmol/L [facility] Anion Gap 9 5 - 15 mmol/L [facility] Calcium 9.0 8.5 - 10.5 mg/dL [facility] Est Glomerular Filtration Rate 69 >=60 mL/min/1. 73 m?? [facility] Comment: This patient's estimated GFR [...] Lab Rosa Cornejo MD CHEMISTRY ORDERABLE S [facility] [place] [address] * Blood culture (11/02/2023 12:35 AM EDT) Blood Culture No growth at 5 days. [facility] Blood 11/02/2023 12:3 5 AM EDT 11/02/2023 1:55 AM EDT Comment:#2 site ukn Narrative Resulting Agency Comment Spec In Lab Rosa Hugo MD MICROBIOLOGY - BLO OD ORDERABLES Performing Organization Address City/[facility]/ZIP Co de Phone Number [facility] [place] [address] * Blood culture (11/02/2023 12:15 AM EDT) Blood Culture No growth at 5 days. [facility] Blood 11/02/2023 12:1 5 AM EDT 11/02/2023 1:54 AM EDT Comment:#1site unk Narrative Resulting Agency Comment Spec In Lab Rosa Hugo MD MICROBIOLOGY - BLO OD ORDERABLES Performing Organization Address [facility] Co de Phone Number [facility] [place] [address] * EKG 12 Lead (11/01/2023 10:10 PM EDT) Ventricular rate 139 BPM MUSE SYSTEM Atrial Rate 139 BPM MUSE SYSTEM P-R Interval 168 ms MUSE SYSTEM QRS Duration 84 ms MUSE SYSTEM Q-T Interval 286 ms MUSE SYSTEM QTC Calculated (Bezet) 435 ms MUSE SYSTEM Calculated R [place] -59 degrees MUSE SYSTEM Calculated T [place] -27 degrees MUSE SYSTEM INTERPRETATION Mid-RP tachycardia, consider sinus tachycardia or SVT Left axis deviation Moderate voltage criteria for LVH, may be normal variant ( R in aVL , Golf product ) Inferior infarct (cited on or before 01-NOV-2023) Anterolateral infarct (cited on or before 01-NOV-2023) Abnormal ECG When compared with ECG of 01-NOV-2023 15:22, Vent. rate Although rate has increased Serial changes of Anterior infarct Present I personally reviewed the tracing and edited the fellows interpretation Confirmed by fellow MD Bowen Ashley ([id number]) on 11/04/2023 7:57:50 AM Confirmed by MD Carrillo Danette ([id number]) on 11/04/2023 4:32:03 PM MUSE SYSTEM 11/01/2023 10:1 0 PM EDT 11/04/2023 4:32 PM EDT Rosa Cornejo MD ECG ORDERABLES MUSE SYSTEM * (ABNORMAL) Hemogram (11/01/2023 10:06 PM EDT) White Blood Cell 10.4(H) 4.0 - 9.5 x10(3)/mc L [facility] Red Blood Cell 4.11 4.00 - 5.21 x10(6)/mc L [facility] Hemoglobin 14.0 11.7 - 15.5 g/dL [facility] Hematocrit 41.1 35.7 - 45.8 % [facility] Mean Cell Volume 100.0(H) 82.6 - 94.4 fL [facility] Mean Cell Hemoglobin 34.1(H) 27.1 - 32.0 pg [facility] Mean Cell Hemoglobin Concentration 34.1 31.7 - 35.0 g/dL [facility] Platelet 197 145 - 357 x10(3)/mc L [facility] RDW Standard Deviation 54.0(H) 37.0 - 46.0 [facility] RDW coefficient of variation 14.6(H) 11.5 - 14.1 % [facility] Mean Platelet Volume 11.2 7.6 - 12.9 [facility] NRBC% auto 0.0 % [facility] NRBC Absolute 0.000 0.000 - 0.000 x10(3)/mc L [facility] Blood 11/01/2023 10:0 6 PM EDT 11/01/2023 10:22 PM EDT Narrative Resulting Agency Comment Spec In Lab Rosa Hugo MD HEMATOLOGY ORDERAB LES [facility] [place] [id number] * POCT Glucose (11/01/2023 5:59 PM EDT) Glucose, POC 104 65 - 199 mg/dL [facility] Comment: Supplemental ranges: <140 mg/dL before meals <180 mg/dL all other times of the day Blood 11/01/2023 5:59 PM EDT 11/01/2023 5:59 PM EDT Rosa Hugo MD POINT OF CARE TEST ORDERABLES [facility] [place] [address] * POCT Glucose (11/01/2023 5:35 PM EDT) Glucose, POC 85 65 - 199 mg/dL [facility] Comment: Supplemental ranges: <140 mg/dL before meals <180 mg/dL all other times of the day Blood 11/01/2023 5:35 PM EDT 11/01/2023 5:35 PM EDT Rosa Hugo MD POINT OF CARE TEST ORDERABLES [facility] [place] [address] * EKG 12 Lead (11/01/2023 3:22 PM EDT) Ventricular rate 59 BPM MUSE SYSTEM Atrial Rate 59 BPM MUSE SYSTEM P-R Interval 220 ms MUSE SYSTEM QRS Duration 94 ms MUSE SYSTEM Q-T Interval 428 ms MUSE SYSTEM QTC Calculated (Bezet) 423 ms MUSE SYSTEM Calculated P [place] 76 degrees MUSE SYSTEM Calculated R [place] -50 degrees MUSE SYSTEM Calculated T [place] -59 degrees MUSE SYSTEM INTERPRETATION Sinus bradycardia [...] Modality Other Narrative 11/02/2023 4:57 PM EDT ?[facility] ? Cardiac Catheterization/Intervention Report ? Patient Name: Adin Santos. ? Procedure Date: 11/01/2023 ? A #: [id number] ? Primary Physician: Rosa Dewey I ? Case #: [id number] ? File Name: [id number] ? Catheterization Order Number: [id number] ? [facility] ? Final Report [place], [place] ? Patient Name: ? Adin M. Goguen ?ID#: ?[id number] ? : ?1940 ? Procedure Date: ? [...] was designated as ASA Class III. The [facility] clinical ?frailty scale is 4: Vulnerable. [...] procedure was Urgent. The indication for ?the bottle labeler visit is ACS greater than 24 hrs. [...] premounted ? 3.50 x 15 mm Andrea Wallback (RADHA) was deployed with a maximum ? [...] ? A premounted 3.50 x 15 mm Mobile Wallback (RADAH) was deployed ? with a maximum [...] dose administered prior to arrival in the bottle labeler. ?Recommended anti-platelet/anti-thrombotic regimen: ?Continue aspirin 81 mg daily for indefinitely. ?Continue clopidogrel 75 mg daily for 12 months then stop. ?These recommendations are made at the time of the intervention. Patient ?and provider preferences or a changing clinical situation may require ?modification of this regimen. Consult [facility] Interventional Cardiology for ?questions. ?The [...] Procedure Note Rosa Dewey MD - 12/12/2023 [facility] Cardiac Catheterization/Intervention Report Patient Name: Adin Santos Procedure Date: 11/01/2023 A #: [id number] Primary Physician: Rosa Dewey I Case #: [id number] File Name: [id number] Catheterization Order Number: [id number] [facility] FinalReport [place], [place] Patient Name: Adin Santos ID#:[id number] :1940 Procedure Date: November 01, 2023 Case [...] diagnostic procedure was Urgent. The indicationfor the bottle labeler visit is ACS greater than 24 hrs. [...] 14 atmospheres. Apremounted 3.50 x 15 mm Mobile Wallback (RADHA) was deployed with amaximum inflation pressure [...] The lesion was predilated with a 3.00mm OXBPXST10 MM balloon with a maximum inflation pressure of 14atmospheres. A premounted 3.50 x 15 mm Andrea Wallback (RADHA) wasdeployed with a maximum inflation pressure [...] dose administered prior to arrival in the bottle labeler. Recommended anti-platelet/anti-thrombotic regimen: Continue aspirin 81 mg daily for indefinitely. Continue clopidogrel 75 mg daily for 12 months then stop. These recommendations are made at the time of the intervention.Patient and provider preferences or a changing clinical situation mayrequire modification of this regimen. Consult [facility] Interventional Cardiologyfor questions. The 1 [...] Glucose, POC 93 65 - 199 mg/dL [facility] Comment: Supplemental ranges: <140 mg/dL before meals <180 mg/dL all other times of the day Blood 11/01/2023 7:06 AM EDT 11/01/2023 7:06 AM EDT Jean Laboy MD POINT OF CARE TEST O RDERABLES [facility] [place] [address] * (ABNORMAL) Differential, Automated (11/01/2023 3:09 AM EDT) Neutrophil % 63.9 % [facility] Neutrophil Absolute 5.54 1.70 - 6.10 x10(3)/mc L [facility] Lymph % 20.0 % [facility] Lymphocytes Abs 1.7 0.9 - 3.2 x10(3)/mc L [facility] Monocyte % 11.9 % [facility] Monocyte Abs 1.0(H) 0.3 - 0.9 x10(3)/ L [facility] Eos % 3.2 % [facility] Eosinophils Abs 0.3 0.0 - 0.4 x10(3)/ L [facility] Basophil % 0.5 % [facility] Baso Absolute 0.0 0.0 - 0.1 x10(3)/ L [facility] Immature Gran % 0.50 % [facility] Comment: Immature granulocytes(IG's)percentage and absolute count will include metamyelocytes, myelocytes, and promyelocytes. Blood smears from CBCs yielding IG's will be scanned manually for concordance. If this scan disagrees with the automated IG or if promyelocytes are noted, a manual differential will be performed. Immature Gran Absolute 0.04 0.00 - 0.04 x10(3)/[facility] Blood 11/01/2023 3:09 AM EDT 11/01/2023 3:29 AM EDT Narrative Resulting Agency Comment Spec In Lab Qamar Gallardo MD HEMATOLOGY ORDERABLE S [facility] [place] [address] * (ABNORMAL) Hemogram (11/01/2023 3:09 AM EDT) White Blood Cell 8.7 4.0 - 9.5 x10(3)/ L [facility] Red Blood Cell 3.72(L) 4.00 - 5.21 x10(6)/[facility] Hemoglobin 12.5 11.7 - 15.5 g/dL [facility] Hematocrit 36.8 35.7 - 45.8 % [facility] Mean Cell Volume 98.9(H) 82.6 - 94.4 fL [facility] Mean Cell Hemoglobin 33.6(H) 27.1 - 32.0 pg [facility] Mean Cell Hemoglobin Concentration 34.0 31.7 - 35.0 g/dL [facility] Platelet 184 145 - 357 x10(3)/mc L [facility] RDW Standard Deviation 53.5(H) 37.0 - 46.0 fL [facility] RDW coefficient of variation 14.6(H) 11.5 - 14.1 % [facility] Mean Platelet Volume 11.3 7.6 - 12.9 fL [facility] NRBC% auto 0.0 % [facility] NRBC Absolute 0.000 0.000 - 0.000 x10(3)/mc L [facility] Blood 11/01/2023 3:09 AM EDT 11/01/2023 3:29 AM EDT Narrative Resulting Agency Comment Spec In Lab Qamar Gallardo MD HEMATOLOGY ORDERABLE S [facility] [place] [address] * Phosphorus (11/01/2023 3:09 AM EDT) Phosphorus 2.5 2.5 - 4.5 mg/dL [facility] Blood 11/01/2023 3:09 AM EDT 11/01/2023 3:29 AM EDT Narrative Resulting Agency Comment Spec In Lab Rosa Cornejo MD CHEMISTRY ORDERABLE S [facility] [place] [address] * Magnesium (11/01/2023 3:09 AM EDT) Magnesium 0.82 0.69 - 1.07 mmol/L [facility] Blood 11/01/2023 3:09 AM EDT 11/01/2023 3:29 AM EDT Narrative Resulting Agency Comment Spec In Lab Rosa Cornejo MD CHEMISTRY ORDERABLE S [facility] [place] [address] * (ABNORMAL) Basic Metabolic Panel (non-fasting) (11/01/2023 3:09 AM EDT) Glucose 100 65 - 199 mg/dL [facility] Comment:Diabetes: >=200 mg/d L plus symptoms Blood Urea Nitrogen 14 8 - 18 mg/dL [facility] Creatinine 0.83 0.70 - 1.20 mg/dL [facility] Sodium 137 135 - 145 mmol/L [facility] Potassium 3.4(L) 3.5 - 5.0 mmol/L [facility] Comment: Please note: ??Patients with WBC >100,000 may have falsely elevated Potassium levels. ??For accurate Potassium quantification in these patients send serum separator tube (gold top) for subsequent determinations. ??Contact the Clinical Chemistry Laboratory if there are any questions. Chloride 105 98 - 107 mmol/L [facility] Carbon Dioxide 24 22 - 31 mmol/L [facility] Anion Gap 8 5 - 15 mmol/L [facility] Calcium 8.6 8.5 - 10.5 mg/dL [facility] Est Glomerular Filtration Rate 69 >=60 mL/min/1. 73 m?? [facility] Comment: This patient's estimated GFR [...] MD CHEMISTRY ORDERABLE S Performing Organization Address City/[facility]/ZIP Co de Phone Number [facility] [place] [address] * (ABNORMAL) Troponin (10/31/2023 2:46 PM EDT) Troponin-T, High Sensitivity 544(H) <=14 ng/L [facility] Comment: This patient's troponin T [...] troponin value can be found in the [facility] Test Catalog Troponin - [facility] Test Catalog Reference: Fourth [place] Definition of Myocardial Infarction. Journal of the [place] [employer] 2018;72:8921-0311 Blood 10/31/2023 2:46 PM EDT 10/31/2023 2:55 PM EDT Narrative Resulting Agency Comment Spec In Lab Jean Laboy MD CHEMISTRY ORDERABLES Performing Organization Address City/[facility]/ZIP Co de Phone Number [facility] [place] [address] * EKG 12 Lead (10/31/2023 1:07 PM EDT) Ventricular rate 54 BPM MUSE SYSTEM Atrial Rate 54 BPM MUSE SYSTEM P-R Interval 218 ms MUSE SYSTEM QRS Duration 92 ms MUSE SYSTEM Q-T Interval 540 ms MUSE SYSTEM QTC Calculated (Bezet) 512 ms MUSE SYSTEM Calculated P [place] 85 degrees MUSE SYSTEM Calculated R [place] -44 degrees MUSE SYSTEM Calculated T [place] -69 degrees MUSE SYSTEM INTERPRETATION Sinus bradycardia with 1st degree A-V block Left axis deviation Moderate voltage criteria for LVH, may be normal variant ( R in aVL , Golf product ) T wave abnormality, consider inferolateral [...] [facility] Troponin-T, High Sensitivity 580(H) <=14 ng/L [facility] Comment: This patient's troponin T [...] troponin value can be found in the [facility] Test Catalog Troponin - [facility] Test Catalog Reference: Fourth [place] Definition of Myocardial Infarction. Journal of the [employer] 2018;72:8366-8242 Blood 10/31/2023 11:3 7 AM EDT 10/31/2023 11:50 AM EDT Narrative Resulting Agency Comment Spec In Lab Rosa Cornejo MD CHEMISTRY ORDERABLE S [facility] [place] [address] * ECHO COMPLETE (10/31/2023 8:52 AM EDT) Anatomical Region Laterality Modality Cardiac Other 10/31/2023 7:57 AM EDT Narrative 10/31/2023 9:45 AM EDT [address] [place] [address] ? Echocardiogram Report Name: TOM ADIN Dorene ? Study Date: 10/31/2023 07:57 AMBP: 106/76 mmHg ? Patient Location: [address] : 1940 ? Height: 163 cm ? Account: [id number] Age: 83 yrs ? Weight: 76 kg Gender: Female ?BSA: 1.8 m2 Ordering Physician: ROSA DEWEY Referring Physician: OMAIRA GIRNO Performed By: HAFSA Carmichael Reason For Study: STEMI Interpreting Fellow: Raymond Warren. Exam Location: [facility]. Interpretation Summary -The left ventricle is [...] is no prior echocardiogram for comparison. Procedure Complete-[id number]. Satisfactory quality. There is sinus bradycardia. Left [...] Note Edgard Wang MD - 10/31/2023 [address] [place] [address] Echocardiogram Report Name: ADIN SANTOS Study Date: 407:57 AMBP: 106/76 mmHg Patient Location: [address] : 1940 Height: 163 cm Account: [id number] Age: 83 yrs Weight: 76 kg Gender: Female BSA: 1.8 m2 Ordering Physician: ROSA DEWEY Referring Physician: OMAIRA GIRON Performed By: HAFSA Carmichael Reason For Study: STEMI Interpreting Fellow: Raymond Warren. Exam Location: [facility]. Interpretation Summary -The left ventricle is [...] is no prior echocardiogram for comparison. Procedure Complete-84501. Satisfactory quality. There is sinus bradycardia. Left [...] * (ABNORMAL) Troponin (10/31/2023 8:51 AM EDT) [facility] Troponin-T, High Sensitivity 571(H) <=14 ng/L [facility] Comment: This patient's troponin T [...] troponin value can be found in the [facility] Test Catalog Troponin - [facility] Test Catalog Reference: Fourth [place] Definition of Myocardial Infarction. Journal of the [place] [employer] 2018;72:0640-1040 Blood 10/31/2023 8:51 AM EDT 10/31/2023 9:12 AM EDT Narrative Resulting Agency Comment Spec In Lab Rosa Cornejo MD CHEMISTRY ORDERABLE S Performing Organization Address [facility] Co de Phone Number [facility] [place] [address] * CARDIAC CATHETERIZATION (10/31/2023 8:10 AM EDT) Anatomical Region Laterality Modality Other Narrative 11/07/2023 9:42 AM EDT ?[facility] ? Cardiac Catheterization/Intervention Report ? Patient Name: Adin Santos ? Procedure Date: 10/30/2023 ? A #: [id number] ? Primary Physician: Rosa Dewey I ? Case #: [id number] ? File Name: [id number] ? Catheterization Order Number: [id number] ? [facility] ? Final Report [place], [place] ? Patient Name: ? Adin M. Goguen ?ID#: ?[id number] ? : ?1940 ? Procedure Date: ? [...] was designated as ASA Class III. The [facility] clinical frailty scale ?is 5: Mildly [...] procedure was Emergent. The indication for ?the bottle labeler visit is ACS less than or equal [...] ? A premounted 4.00 x 38 mm Mobile Wallback (RADHA) was deployed ? with a maximum [...] dose administered prior to arrival in the bottle labeler. ?Recommended anti-platelet/anti-thrombotic regimen: ?Continue aspirin 81 mg daily for 12 months then stop. ?Continue clopidogrel 75 mg daily for indefinitely. ?These recommendations are made at the time of the intervention. Patient ?and provider preferences or a changing clinical situation may require ?modification of this regimen. Consult [facility] Interventional Cardiology for ?questions. ? [...] Procedure Note Rosa Dewey MD - 12/05/2023 [facility] Cardiac Catheterization/Intervention Report Patient Name: Adin Santos Procedure Date: 10/30/2023 A #: [id number] Primary Physician: Rosa Dewey I Case #: [id number] File Name: [id number] Catheterization Order Number: [id number] [facility] FinalReport [place], [place] Patient Name: Adin Santos ID#:[id number] :1940 Procedure Date: October 30, 2023 Case [...] was designated as ASA Class III. The [facility] clinical frailtyscale is 5: Mildly Frail. Diagnostic Tests: Electrocardiography: EKG was assessed by ECG. EKG was Abnormal. EKG showed STDeviation >= 0.5 mm, other abnormality and dynamic EKG changes. Medications Prior to Procedure: Aspirin, Angiotensin II Receptor Rodrick, Beta Rodrick andStatin. Indications for Diagnostic Cath: The priority of the diagnostic procedure was Emergent. Theindication for the bottle labeler visit is ACS less than or equal [...] for the procedure was Emergent.The [facility] indication for the procedure was STEMI-Immediate [...] A premounted 4.00 x 38 mm Andrea Wallback (RADHA) wasdeployed with a maximum inflation pressure [...] dose administered prior to arrival in the bottle labeler. Recommended anti-platelet/anti-thrombotic regimen: Continue aspirin 81 mg daily for 12 months then stop. Continue clopidogrel 75 mg daily for indefinitely. These recommendations are made at the time of the intervention.Patient and provider preferences or a changing clinical situation mayrequire modification of this regimen. Consult [facility] Interventional Cardiologyfor questions. Conclusions: * [...] * (ABNORMAL) Troponin (10/31/2023 4:21 AM EDT) [facility] Troponin-T, High Sensitivity 457(H) <=14 ng/L [facility] Comment: This patient's troponin T [...] troponin value can be found in the [facility] Test Catalog Troponin - [facility] Test Catalog Reference: Fourth [place] Definition of Myocardial Infarction. Journal of the [place] [employer] 2018;72:4696-4064 Blood 10/31/2023 4:21 AM EDT 10/31/2023 4:30 AM EDT Narrative Resulting Agency Comment Spec In Lab Rosa Cornejo MD CHEMISTRY ORDERABLE S Performing Organization Address City/State/[facility] Co de Phone Number [facility] [place] [address] * (ABNORMAL) Differential, Automated (10/31/2023 3:05 AM EDT) Neutrophil % 71.7 % [facility] Neutrophil Absolute 8.21(H) 1.70 - 6.10 x10(3)/mc L [facility] Lymph % 16.9 % [facility] Lymphocytes Abs 1.9 0.9 - 3.2 x10(3)/mc L [facility] Monocyte % 9.4 % [facility] Monocyte Abs 1.1(H) 0.3 - 0.9 x10(3)/mc L [facility] Eos % 1.3 % [facility] Eosinophils Abs 0.2 0.0 - 0.4 x10(3)/mc L [facility] Basophil % 0.4 % [facility] Baso Absolute 0.0 0.0 - 0.1 x10(3)/mc L [facility] Immature Gran % 0.30 % [facility] Comment: Immature granulocytes(IG's)percentage and absolute count will include metamyelocytes, myelocytes, and promyelocytes. Blood smears from CBCs yielding IG's will be scanned manually for concordance. If this scan disagrees with the automated IG or if promyelocytes are noted, a manual differential will be performed. Immature Gran Absolute 0.04 0.00 - 0.04 x10(3)/ L [facility] Blood 10/31/2023 3:05 AM EDT 10/31/2023 3:13 AM EDT Narrative Resulting Agency Comment Spec In Lab Qamar Gallardo MD HEMATOLOGY ORDERABLE S [facility] [place] [address] * (ABNORMAL) Hemogram (10/31/2023 3:05 AM EDT) White Blood Cell 11.5(H) 4.0 - 9.5 x10(3)/ L [facility] Red Blood Cell 3.75(L) 4.00 - 5.21 x10(6)/mc L [facility] Hemoglobin 12.6 11.7 - 15.5 g/dL [facility] Hematocrit 37.1 35.7 - 45.8 % [facility] Mean Cell Volume 98.9(H) 82.6 - 94.4 fL [facility] Mean Cell Hemoglobin 33.6(H) 27.1 - 32.0 pg [facility] Mean Cell Hemoglobin Concentration 34.0 31.7 - 35.0 g/dL [facility] Platelet 206 145 - 357 x10(3)/mc L [facility] RDW Standard Deviation 53.4(H) 37.0 - 46.0 fL [facility] RDW coefficient of variation 14.6(H) 11.5 - 14.1 % [facility] Mean Platelet Volume 11.1 7.6 - 12.9 fL [facility] NRBC% auto 0.0 % [facility] NRBC Absolute 0.000 0.000 - 0.000 x10(3)/mc L [facility] Blood 10/31/2023 3:05 AM EDT 10/31/2023 3:13 AM EDT Narrative Resulting Agency Comment Spec In Lab Qamar Gallardo MD HEMATOLOGY ORDERABLE S Performing Organization Address [facility] de Phone Number [facility] [place] [address] * (ABNORMAL) APTT (10/31/2023 3:05 AM EDT) Partial Thromboplastin Time 67(H) 25 - 37 sec [facility] Comment: The PTT is NOT appropriate for heparin monitoring. Use the Anti-Xa level for heparin monitoring (HEP UFH) or LMWH monitoring (HEP LMW). A PTT less than 37 seconds generally indicates adequate hemostasis. Blood 10/31/2023 3:05 AM EDT 10/31/2023 3:13 AM EDT Narrative Resulting Agency Comment Spec In Lab Rosa Cornejo MD HEMATOLOGY ORDERABL ES Performing Organization Address [facility] de Phone Number [facility] [place] [address] * (ABNORMAL) Prothrombin Time (10/31/2023 3:05 AM EDT) Prothrombin Time 12.6(H) 9.4 - 12.5 sec [facility] International Normalization Ratio 1.1 [facility] Comment: An INR <2.0 indicates [...] Lab Rosa Cornejo MD HEMATOLOGY ORDERABL ES [facility] [place] [address] * (ABNORMAL) Differential, Automated (10/31/2023 1:37 AM EDT) Neutrophil % 71.1 % [facility] Neutrophil Absolute 7.53(H) 1.70 - 6.10 x10(3)/mc L [facility] Lymph % 18.0 % [facility] Lymphocytes Abs 1.9 0.9 - 3.2 x10(3)/ L [facility] Monocyte % 8.7 % [facility] Monocyte Abs 0.9 0.3 - 0.9 x10(3)/mc L [facility] Eos % 1.6 % [facility] Eosinophils Abs 0.2 0.0 - 0.4 x10(3)/mc L [facility] Basophil % 0.4 % [facility] Baso Absolute 0.0 0.0 - 0.1 x10(3)/mc L [facility] Immature Gran % 0.20 % [facility] Comment: Immature granulocytes(IG's)percentage and absolute count will include metamyelocytes, myelocytes, and promyelocytes. Blood smears from CBCs yielding IG's will be scanned manually for concordance. If this scan disagrees with the automated IG or if promyelocytes are noted, a manual differential will be performed. Immature Gran Absolute 0.02 0.00 - 0.04 x10(3)/mc L [facility] Blood 10/31/2023 1:37 AM EDT 10/31/2023 1:46 AM EDT Narrative Resulting Agency Comment Spec In Lab Qamar Gallardo MD HEMATOLOGY ORDERABLE S [facility] [place] [address] * (ABNORMAL) Hemogram (10/31/2023 1:37 AM EDT) White Blood Cell 10.6(H) 4.0 - 9.5 x10(3)/mc L [facility] Red Blood Cell 3.78(L) 4.00 - 5.21 x10(6)/mc L [facility] Hemoglobin 13.0 11.7 - 15.5 g/dL [facility] Hematocrit 37.9 35.7 - 45.8 % [facility] Mean Cell Volume 100.3(H) 82.6 - 94.4 fL [facility] Mean Cell Hemoglobin 34.4(H) 27.1 - 32.0 pg [facility] Mean Cell Hemoglobin Concentration 34.3 31.7 - 35.0 g/dL [facility] Platelet 204 145 - 357 x10(3)/mc L [facility] RDW Standard Deviation 54.3(H) 37.0 - 46.0 fL [facility] RDW coefficient of variation 14.6(H) 11.5 - 14.1 % [facility] Mean Platelet Volume 11.1 7.6 - 12.9 fL [facility] NRBC% auto 0.0 % [facility] NRBC Absolute 0.000 0.000 - 0.000 x10(3)/mc L [facility] Blood 10/31/2023 1:37 AM EDT 10/31/2023 1:46 AM EDT Narrative Resulting Agency Comment Spec In Lab Qamar Gallardo MD HEMATOLOGY ORDERABLE S [facility] [place] [address] * Phosphorus (10/31/2023 1:37 AM EDT) Phosphorus 3.2 2.5 - 4.5 mg/dL [facility] Blood 10/31/2023 1:37 AM EDT 10/31/2023 1:46 AM EDT Narrative Resulting Agency Comment Spec In Lab Rosa Cornejo MD CHEMISTRY ORDERABLE S Performing Organization Address City/[facility]/ZIP Co de Phone Number [facility] [place] [address] * Magnesium (10/31/2023 1:37 AM EDT) Magnesium 0.83 0.69 - 1.07 mmol/L [facility] Blood 10/31/2023 1:37 AM EDT 10/31/2023 1:46 AM EDT Narrative Resulting Agency Comment Spec In Lab Rosa Cornejo MD CHEMISTRY ORDERABLE S Performing Organization Address City/[facility]/ZIP Co de Phone Number [facility] [place] [address] * Basic Metabolic Panel (non-fasting) (10/31/2023 1:37 AM EDT) Glucose 114 65 - 199 mg/dL [facility] Comment:Diabetes: >=200 mg/d L plus symptoms Blood Urea Nitrogen 13 8 - 18 mg/dL [facility] Creatinine 0.81 0.70 - 1.20 mg/dL [facility] Sodium 140 135 - 145 mmol/L [facility] Potassium 3.9 3.5 - 5.0 mmol/L [facility] Comment: Please note: ??Patients with WBC >100,000 may have falsely elevated Potassium levels. ??For accurate Potassium quantification in these patients send serum separator tube (gold top) for subsequent determinations. ??Contact the Clinical Chemistry Laboratory if there are any questions. Chloride 107 98 - 107 mmol/L [facility] Carbon Dioxide 25 22 - 31 mmol/L [facility] Anion Gap 8 5 - 15 mmol/L [facility] Calcium 8.6 8.5 - 10.5 mg/dL [facility] Est Glomerular Filtration Rate 72 >=60 mL/min/1. 73 m?? [facility] Comment: This patient's estimated GFR [...] Lab Rosa Cornejo MD CHEMISTRY ORDERABLE S [facility] [place] [address] * (ABNORMAL) Troponin (10/31/2023 1:37 AM EDT) Troponin-T, High Sensitivity 329(H) <=14 ng/L [facility] Comment: This patient's troponin T [...] troponin value can be found in the [facility] Test Catalog Troponin - [facility] Test Catalog Reference: Fourth [place] Definition of Myocardial Infarction. Journal of the [place] [employer] 2018;72:5702-0238 Blood 10/31/2023 1:37 AM EDT 10/31/2023 1:46 AM EDT Narrative Resulting Agency Comment Spec In Lab Rosa Cornejo MD CHEMISTRY ORDERABLE S Performing Organization Address City/[facility]/[place] [address] * EKG 12 Lead (10/31/2023 1:20 AM EDT) Ventricular rate 52 BPM MUSE SYSTEM Atrial Rate 52 BPM MUSE SYSTEM P-R Interval 224 ms MUSE SYSTEM QRS Duration 108 ms MUSE SYSTEM Q-T Interval 544 ms MUSE SYSTEM QTC Calculated (Bezet) 505 ms MUSE SYSTEM Calculated P [place] 90 degrees MUSE SYSTEM Calculated R [place] -57 degrees MUSE SYSTEM Calculated T [place] -63 degrees MUSE SYSTEM INTERPRETATION Sinus bradycardia [...] (Bezet) 497 ms MUSE SYSTEM Calculated P [place] 75 degrees MUSE SYSTEM Calculated R [place] -53 degrees MUSE SYSTEM Calculated T [place] -57 degrees MUSE SYSTEM INTERPRETATION Sinus bradycardia [...] View (10/30/2023 10:10 PM EDT) WORKSTATION ID [id number] DH RAD Anatomical Region Laterality Modality Chest [...] and low lung volumes. Findings similar to sales representative raw fibers radiograph from CT 10/30/2023. Thank you for letting us participate in the care of this patient. ??If you are a health care provider and have any questions regarding this report, please contact the number below. ??For patients who have questions please contact the health insurance healthcare representative that requested your imaging first. ? Electronically signed by: Wilson Mccartney MD, [facility] ([phone]), at 10/30/2023 10:32 PM Narrative 10/30/2023 10:32 [...] and low lung volumes. Findings similar to sales representative raw fibers radiograph from CT 10/30/2023. Thank you for letting us participate in the care of this patient. If youare a health care provider and have any questions regarding this report,please contact the number below. For patients who have questions please contactthe health insurance healthcare representative that requested your imaging first. Rosa Cornejo MD IMG DX ORDERABLES * Green Tube HOLD (10/30/2023 10:05 PM EDT) [facility] Green Hold Sample in lab. [facility] Blood Venous Draw / Unknown 10/30/2023 10:05 PM EDT 10/30/2023 10:13 PM EDT Qamar Gallardo MD CHEMISTRY ORDERABLES [facility] [place] [address] * (ABNORMAL) Differential, Automated (10/30/2023 10:05 PM EDT) Pathologist [facility] Neutrophil % 76.6 % [facility] Neutrophil Absolute 6.94(H) 1.70 - 6.10 x10(3)/mc L [facility] Lymph % 15.4 % [facility] Lymphocytes Abs 1.4 0.9 - 3.2 x10(3)/mc L [facility] Monocyte % 6.1 % [facility] Monocyte Abs 0.6 0.3 - 0.9 x10(3)/mc L [facility] Eos % 1.1 % [facility] Eosinophils Abs 0.1 0.0 - 0.4 x10(3)/mc L [facility] Basophil % 0.6 % [facility] Baso Absolute 0.0 0.0 - 0.1 x10(3)/mc L [facility] Immature Gran % 0.20 % [facility] Comment: Immature granulocytes(IG's)percentage and absolute count will include metamyelocytes, myelocytes, and promyelocytes. Blood smears from CBCs yielding IG's will be scanned manually for concordance. If this scan disagrees with the automated IG or if promyelocytes are noted, a manual differential will be performed. Immature Gran Absolute 0.02 0.00 - 0.04 x10(3)/ L [facility] Blood 10/30/2023 10:0 5 PM EDT 10/30/2023 10:12 PM EDT Narrative Resulting Agency Comment Spec In Lab Qamar Gallardo MD HEMATOLOGY ORDERABLE S Performing Organization Address City/State/[facility] Co de Phone Number [facility] [place] [address] * (ABNORMAL) Hemogram (10/30/2023 10:05 PM EDT) White Blood Cell 9.0 4.0 - 9.5 x10(3)/ L [facility] Red Blood Cell 3.96(L) 4.00 - 5.21 x10(6)/mc L [facility] Hemoglobin 13.3 11.7 - 15.5 g/dL [facility] Hematocrit 39.1 35.7 - 45.8 % [facility] Mean Cell Volume 98.7(H) 82.6 - 94.4 fL [facility] Mean Cell Hemoglobin 33.6(H) 27.1 - 32.0 pg [facility] Mean Cell Hemoglobin Concentration 34.0 31.7 - 35.0 g/dL [facility] Platelet 211 145 - 357 x10(3)/mc L [facility] RDW Standard Deviation 53.6(H) 37.0 - 46.0 fL [facility] RDW coefficient of variation 14.6(H) 11.5 - 14.1 % [facility] Mean Platelet Volume 11.1 7.6 - 12.9 fL [facility] NRBC% auto 0.0 % [facility] NRBC Absolute 0.000 0.000 - 0.000 x10(3)/mc L [facility] Blood 10/30/2023 10:0 5 PM EDT 10/30/2023 10:12 PM EDT Narrative Resulting Agency Comment Spec In Lab Qamar Gallardo MD HEMATOLOGY ORDERABLE S Performing Organization Address City/[facility]/ZIP Co de Phone Number [facility] [place] [address] * Hemoglobin A1c (10/30/2023 10:05 PM EDT) Hemoglobin A1c 5.5 4.3 - 5.6 % [facility] Comment: Reference Range: 4.3 - [...] [id number] Estimated Average Glucose See note mg/dL [facility] Comment: Estimated Average Glucose not appropriate for patients over 70 years of age. Blood 10/30/2023 10:0 5 PM EDT 10/30/2023 10:12 PM EDT Narrative Resulting Agency Comment Spec In Lab Rosa Cornejo MD CHEMISTRY ORDERABLE S [facility] [place] [address] * Lipid Panel (Reflex Direct LDL) (10/30/2023 10:05 PM EDT) [facility] Cholesterol, Total 218 mg/dL Dore[facility] Comment: Desirable: ? <200 mg/dL Borderline High: 200-239 mg/dL Higher: ?>wf=407 mg/dL Triglyceride 46 mg/dL [facility] Comment: Normal: ?<150 mg/dL Borderline High: 150-199 mg/dL High: ?200-499 mg/dL Very High: ? >bj=981 mg/dL HDL Cholesterol 64 mg/dL [facility] Comment: Females: High Risk: <50 mg/dL Males: High Risk: <40 mg/dL LDL Cholesterol 145 mg/dL [facility] Comment: Desirable: ? <100 mg/dL Above Desirable: 100-129 mg/dL Borderline High: 130-159 mg/dL High: ?160-189 mg/dL Very High: ? >lc=404 mg/dL Lipid Interpretation See Note [facility] Comment: It is important to [...] individuals with atherosclerotic cardiovascular disease (ASCVD)or LDL >hh=852 mg/dL, use a high-intensity statin (40-80 mg [...] ORDERABLE S Performing Organization Address [facility] Co de Phone Number [facility] [place] [address] * TSH Bland (10/30/2023 10:05 PM EDT) Thyroid Stimulating Hormone 3.35 0.27 - 4.20 mcIU/mL [facility] Comment: Reference Interval (mcIU/mL): Females: ??First Trimester: 0.23-3.88 ??Second Trimester: 0.22-3.90 ??Third Trimester: 0.44-4.66 Blood 10/30/2023 10:0 5 PM EDT 10/30/2023 10:12 PM EDT Narrative Resulting Agency Comment Spec In Lab Rosa Cornejo MD CHEMISTRY ORDERABLE S Performing Organization Address [facility]/ZIP Co de Phone Number [facility] [place] [address] * pro-Brain Natriuretic Peptide (10/30/2023 10:05 PM EDT) NT-proBNP 375 <=449 pg/mL [facility] Blood 10/30/2023 10:0 5 PM EDT 10/30/2023 10:12 PM EDT Narrative Resulting Agency Comment Spec In Lab Rosa Cornejo MD CHEMISTRY ORDERABLE S [facility] [place] [address] * (ABNORMAL) Comprehensive metabolic panel (non-fasting) (10/30/2023 10:05 PM EDT) Pathologist [facility] Glucose 121 65 - 199 mg/dL [facility] Comment:Diabetes: >=200 mg/d L plus symptoms Blood Urea Nitrogen 14 8 - 18 mg/dL [facility] Creatinine 0.85 0.70 - 1.20 mg/dL [facility] Sodium 142 135 - 145 mmol/L [facility] Potassium 3.9 3.5 - 5.0 mmol/L [facility] Comment: Please note: ??Patients with WBC >100,000 may have falsely elevated Potassium levels. ??For accurate Potassium quantification in these patients send serum separator tube (gold top) for subsequent determinations. ??Contact the Clinical Chemistry Laboratory if there are any questions. Chloride 105 98 - 107 mmol/L [facility] Carbon Dioxide 27 22 - 31 mmol/L [facility] Anion Gap 10 5 - 15 mmol/L [facility] [facility] Calcium 8.8 8.5 - 10.5 mg/dL [facility] Protein, Total 6.5 6.1 - 8.0 g/dL [facility] Albumin 4.2 3.2 - 5.2 g/dL [facility] Aspartate Aminotransferase 36(H) 0 - 30 unit/L [facility] Alanine Aminotransferase 17 0 - 30 unit/L [facility] Alkaline Phosphatase 54 35 - 105 unit/L [facility] Bilirubin, Total 0.5 0.2 - 1.3 mg/dL [facility] Est Glomerular Filtration Rate 68 >=60 mL/min/1. 73 m?? [facility] Comment: This patient's estimated GFR [...] MD CHEMISTRY ORDERABLE S Performing Organization Address City/[facility]/ZIP Co de Phone Number [facility] [place] [address] * Phosphorus (10/30/2023 10:05 PM EDT) Phosphorus 3.3 2.5 - 4.5 mg/dL [facility] Blood 10/30/2023 10:0 5 PM EDT 10/30/2023 10:12 PM EDT Narrative Resulting Agency Comment Spec In Lab Rosa Cornejo MD CHEMISTRY ORDERABLE S [facility] [place] [address] * Magnesium (10/30/2023 10:05 PM EDT) Magnesium 0.86 0.69 - 1.07 mmol/L [facility] Blood 10/30/2023 10:0 5 PM EDT 10/30/2023 10:12 PM EDT Narrative Resulting Agency Comment Spec In Lab Rosa Cornejo MD CHEMISTRY ORDERABLE S Performing Organization Address City/[facility]/ZIP Co de Phone Number [facility] [place] [address] * (ABNORMAL) Troponin (10/30/2023 10:05 PM EDT) Troponin-T, High Sensitivity 214(H) <=14 ng/L [facility] Comment: This patient's troponin T [...] troponin value can be found in the [facility] Test Catalog Troponin - [facility] Test Catalog Reference: Fourth [place] Definition of Myocardial Infarction. Journal of the [place] [employer] 2018;72:1274-1337 Blood 10/30/2023 10:0 5 PM EDT 10/30/2023 10:12 PM EDT Narrative Resulting Agency Comment Spec In Lab Rosa Cornejo MD CHEMISTRY ORDERABLE S Performing Organization Address City/[facility]/ZIP Co de Phone Number [facility] [place] [address] * EKG 12 Lead (10/30/2023 8:21 PM EDT) Ventricular rate 49 BPM MUSE SYSTEM Atrial Rate 49 BPM MUSE SYSTEM P-R Interval 230 ms MUSE SYSTEM QRS Duration 96 ms MUSE SYSTEM Q-T Interval 526 ms MUSE SYSTEM QTC Calculated (Bezet) 475 ms MUSE SYSTEM Calculated P [place] 98 degrees MUSE SYSTEM Calculated R [place] -48 degrees MUSE SYSTEM Calculated T [place] -51 degrees MUSE SYSTEM INTERPRETATION Sinus bradycardia [...] - Reason: Transfer to a Procedural area)1548 ([facility] Unhold - Provider: Admin [...] - Reason: Transfer to a Procedural area)1548 ([facility] Unhold - Provider: Admin [...] documented as of this encounter Care Teams Campus Monitor Relationship Specialty Start Date End Date Rosie Mathews MD [address] [place] [id number] PCP - General Family Medicine 11/25/17 11/23/23 documented as of this encounter
--- OUTSIDE RECORDS SUMMARY | 2024-02-22 10:39 | XMS_ITS | Encounter Summary ---
Author Organization [facility]ly [facility] [place] [address] Care Team Providers Care Brush Fabrication Supervisor Name Role Phone Rosie Mathews MD Primary Care Provider [phone] Reason for Visit * Auth/Cert (Routine) Specialty Diagnoses / Procedures Referred By Contac t Referred To Contact Diagnoses Unstable angina Procedures [facility] Referral ID Status Reason Start Date Expiration Date Visits Re quested Visits Authorized [id number] 1 1 Encounter Details Date Type Department Care Team (Latest Contact Info) Description 10/30/2023 5:00 PM EDT - 10/30/2023 5:10 PM EDT Hospital [place] [phone] Rosa Menjivar MD [facility] [place] [address] Discharge Disposition: Home Social History Tobacco Use Types Packs/Day Years Used Date Smoking Tobacco: Former Smokeless Tobacco: Never Alcohol Use Standard Drinks/Week Comments Not Currently 0 (1 standard drink = 0.6 oz pur e alcohol) [facility] Inpatient Questions Answer Date Recorded Does [...] AM EDT Office Visit Cardiology at [address] [place] [address] Izaiah Meyer MD [facility] [place] [address] documented as of this encounter Visit Diagnoses Not on filedocumented in this encounter Care Teams Brush Fabrication Supervisor Relationship Specialty Start Date End Date Rosie Mathews MD [address] [place] [address] PCP - General Family Medicine 11/25/17 11/23/23 documented as of this encounter
--- OUTSIDE RECORDS SUMMARY | 2024-02-22 10:39 | XMS_ITS | Encounter Summary ---
Author Organization [facility] [place] [address] Care Team Providers Care Dowel Machine Operator Name Role Phone Rosie Mathews MD Primary Care Provider [phone] Encounter Details Date Type Department Care Team (Late st Contact Info) Description 10/30/2023 5:00 PM EDT Ancillary Procedure [place] [phone] Izaiah Meyer MD [facility] [place] [address] Social History Tobacco Use Types Packs/Day Years Used Date Smoking Tobacco: Former Smokeless Tobacco: Never Alcohol Use Standard Drinks/Week Comments Not Currently 0 (1 standard drink = 0.6 oz pur e alcohol) [facility] Inpatient Questions Answer Date Recorded [...] AM EDT Office Visit Cardiology at [address] [place] [address] [facility] [place] [place] [address] documented as of this encounter Procedures Procedure Name Priority Date/Time Associated Diagnosis Comments FILM LIBRARY STORAGE ONLY CT CHEST Routine 10/30/2023 4:59 PM EDT documented in this encounter Results * Film Library- Storage Only CT Chest (10/30/2023 4:59 PM EDT) Narrative [facility] 10/30/2023 4:59 PM EDT This exam is auto-finalizing. It's purpose is for storage only. Izaiah Meyer MD IMG FILM LIBRARY ORD ERABLES Performing Organization Address City/State/[facility] Co de Phone Number [place], [place] documented in this encounter Visit Diagnoses Not on filedocumented in this encounter Care Teams Dowel Machine Operator Relationship Specialty Start Date End Date Rosie Mathews MD [address] [place] [address] PCP - General Family Medicine 11/25/17 11/23/23 documented as of this encounter
--- OUTSIDE RECORDS SUMMARY | 2024-02-22 10:39 | XMS_ITS | Encounter Summary ---
Author Organization [facility] Address [facility] [place] [address] Care Team Providers Care Benefits Analyst Name Role Phone Rosie Mathews MD Primary Care Provider [phone] Reason for Referral * Consultation (Routine) - Authorized Specialty Diagnoses / Procedures Referred By Contac t Referred To Contact Cardiology Diagnoses 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 Rosa Hugo MD [facility] [place] [address] Cardiac Rehab, [address] [place] [address] Referral ID Status Reason Start Date Expiration Date Visits Requested Visits Authorized [id number] Authorized Consult, Test & Treat Non PCP 11/03/2023 05/01/2024 36 36 * Home Health Care (Routine) - Authorized Specialty Diagnoses / Procedures Referred By Contac t Referred To Contact Diagnoses Unstable angina Rosa Hugo MD [facility] [place] [address] Referral ID Status Reason Start Date Expiration Date Visits Requested Visits Authorized [id number] Authorized Consult, Test & Treat 11/03/2023 05/01/2024 999 999 Reason for Visit * Auth/Cert (Routine) Specialty Diagnoses / Procedures Referred By John hunt Referred To Contact Diagnoses Unstable angina Chest pain NSTEMI Procedures CARDIAC CATHETERIZATION Rosa Dewey MD [facility] [place] [address] [facility] Referral ID Status Reason Start Date Expiration Date Visits Re quested Visits Authorized [id number] 1 1 Encounter Details Date Type Department Care Team (Latest Contact Info) Description 10/30/2023 5:11 PM EDT - 11/03/2023 5:13 PM EDT Hospital Encounter Heart and Vascular Unit Level 4 [place] [address] Rosa Dewey MD [facility] [place] [address] Jean Laboy MD [facility] [place] [address] Rosa Hugo MD [facility] [place] [address] 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; Tachycardia; Unstable angina Discharge Disposition: Home Social History Tobacco Use Types Packs/Day Years Used Date Smoking Tobacco: Former Smokeless Tobacco: Never Alcohol Use Standard Drinks/Week Comments Not Currently 0 (1 standard drink = 0.6 oz pur e alcohol) [facility] Utilities Answer Date Recorded In the past 12 months has e [employer], gas, oil, or water [employer] threatened to shut off services in your [...] [facility] a transfer from [facility] as a possible STEMI alert with acute onset chest pain. The patient reports that her symptoms initially began on Tuesday when she was walking to [employer] and experienced bilateral arm heaviness while walking with no other symptoms. Then, this afternoon shereports developing bilateral achy shoulder pain and nonradiating substernal left-sided chest pressure that was 7/10 in severity after coming home from [facility]. The patient denies any associated fevers, chills, [...] the patient was taken directly to the Chocolatier. Two lesions were discovered: one in the prox RCA (felt to almost be a FOAMITE MIXER but they were able to wire, balloon, [...] prior to arrival in the cath lab tech. Recommended anti-platelet/anti-thrombotic regimen: Continue aspirin 81 [...] and low lung volumes. Findings similar to targeteer radiograph from CT 10/30/2023. Pending Studies and [...] 10:40 AM Izaiah Meyer MD Cardiology at [facility] Arrive at: [facility] [address] [phone] Future Orders Complete By Expires Referral to Cardiac Rehab [UPV005 Custom] As directed Process Instructions: If no progress note charted, please enter Clinical details in comments. Scheduling Instructions: Questions: My question or request is: STEMI. Cardiac rehab at [facility]. Referral to Home Health [REF34 Custom] As directed Process Instructions: If no progress note charted, please enter Clinical details in comments. Scheduling Instructions: Comments: Please evaluate Adin Santos for admission to Home Health. [address] [facility] [address] (home) Date of : 1940 Inpatient DOCUMENTATION FOR VNA SERVICES (INCLUDING THOSE PATIENTS WITH MEDICARE COVERAGE REQUIRING HOME VNA SERVICES AND/OR HOSPICE SERVICES) PATIENT'S LOCATION: Adin Santos [address] [facility] [phone] (home) Cell: Telephone Information: Air Operations Manager's Name: self In discussion with the attending physician, it is certified that this patient is under their care and that they, or a Nurse Practitioner, Clinical Nurse specialist or Physician [employer] [facility] [employer] [employer] who is working directly with them, had [...] [facility] [address] [place] [address] START OF CARE: within 24-48 hours of [...] [address] / [facility] [address] . All A agencies which cover [...] Mathews MD / Dr. Masood Pierson [address] [place] [address] 11/09/23 1:55 PM arrival for 2:10 PM appointment Perinatal Social Worker: Izaiah Meyer MD [address] [place] [address] , 11/24/2023 10:40 AM Your Inpatient Medical Team at [facility] Name(s) of your inpatient provider(s): Attending physician: Rosa Hugo MD Resident physicians: Emile Robles MD; Elmer Tamez MD If you have non-emergent questions, prior to your follow-up visit call: Tuesday-Tuesday between the hours of 8AM-5PM please call the Cardiology Clinic [phone] to speak with a nurse. All other hours please call the Hospital [facility] [phone] and ask to speak to the corporate relations director on-call. Your Primary Care Provider Rosie Mathews MD [phone] For questions regarding this document or issues relating to this hospitalization on the Medical Service, please contact your inpatient physician through the [facility] . Issues afterhours and on weekends will be handled by the Perinatal Social Worker staff on-call. Associated attestation - Rosa Hugo [...] MD / Dr. Masood Pierson [address] [place] [address] 11/09/23 1:55 PM arrival for 2:10 PM appointment Perinatal Social Worker: Izaiah Meyer MD [address] [place] [address] , 11/24/2023 10:40 AM Your Inpatient Medical Team at [facility] Name(s) of your inpatient provider(s): Attending physician: Rosa Hugo MD Resident physicians: Emile Robles MD; Elmer Tamez MD If you have non-emergent questions, prior to your follow-up visit call: Tuesday-Tuesday between the hours of 8AM-5PM please call the Cardiology Clinic [phone] to speak with a nurse. All other hours please call the [facility] [phone] and ask to speak to the corporate relations director on-call. Your Primary Care Provider Rosie Mathews MD [phone] documented in this encounter Medications at Time [...] of this encounter Progress Notes * Elmer aTmez MD - 11/02/2023 7:38 AM EDT Inpatient Cardiology Progress Note Patient Name: Adin Santos Date of Admission: 10/30/2023 ( Hospital Day 3 days ) Service: S1 ID: Adin Santos is a 83 y.o. female PMH significant for hypertension and hyperlipidemia who presented to [facility] [...] [facility] a [facility] [...] Resident on Cardiology Service Cardiology S1 (Pager [phone]) Note written in conjunction with Claudio Perla [facility] Medical Student, MS3 Associated attestation - [...] Nirmala Webb - 11/01/2023 11:25 AM EDT Roll Icer Machine Encounter Note Patient Name: Adin Santos : [id number] MR#: [id number] Admit Date: 10/30/2023 5:11 PM Hospital Day 2 days Narrative: Self initiated visit to patient for Spiritual support in a regular unit rounds. Assessment: Patient is in the bathroom at the time of this visit. Not a good time for Fish Straightener visit. Intervention and Outcome: An attempted visit [...] [facility] [...] and low lung volumes. Findings similar to targeteer radiograph from CT 10/30/2023. Scheduled Medications: [AUG [...] [facility] [...] Resident on Cardiology Service Cardiology S1 (Pager [phone]) Note written in conjunction with Claudio Perla [facility] Medical Student, MS3 Associated attestation - [...] [facility] a transfer from [facility] as a possible STEMI alert with acute onset chest pain. Active Problems: Active Hospital Problems Diagnosis Unstable angina Resolved Hospital Problems No resolved problems to display. 24 hr events: - Cath'd yesterday with lesion in the proximal RCA (initially thought it was FOAMITE MIXER but they were ableto wire, balloon and [...] and low lung volumes. Findings similar to targeteer radiograph from CT 10/30/2023. TTE (05/13): Interpretation [...] [facility] [...] Resident on Cardiology Service Cardiology S1 (Pager [phone]) Note written in conjunction with Claudio Perla [facility] Medical Student, MS3 Associated attestation - [...] PCP: Rosie Mathews MD PCP phone number: [phone] Date of Admission: 10/30/2023 ( Hospital Day 0 days ) Attending:Rosa Cornejo MD ID: Adin Santos is a 83 y.o. female PMH significant for hypertension and hyperlipidemia who presented to [facility] as a transfer from [facility] as a possible STEMI alert with acute onset chest pain. The patient reports that her symptoms initially began on Tuesday when she was walking to [place] and experienced bilateral arm heaviness while walking with no other symptoms. Then, this afternoon shereports developing bilateral achy shoulder pain and nonradiating substernal left-sided chest pressure that was 7/10 in severity after coming home from [facility]. The patient denies any associated fevers, chills, [...] the patient was taken directly to the Chocolatier. 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 Findings similar to targeteer radiograph from CT 10/30/2023. Assessment & Plan: Adin Santos is a 83 y.o. female PMH significant for hypertension and hyperlipidemia who presented to [facility] as a transfer from [facility] [...] HTN HLD transferred with chest from [facility]. BP 217/68, HR 71 EKG [...] information for follow-up Home Health [facility] H[facility], [place] [address] [place] [address] TANESHA BOYCE confirmed with [facility] that they will see the patient within 24-48 hours of discharge for start of care. Transportation: family or friend will provide Wheelchair van/Ambulance? No Functional status prior to admission: Assistive Equipment Home Environment: Others in the home: alone. Current Living Arrangements: home/apartment/condo. Accessibility Concerns:1st floor apartment in intermediate community; handicapped accessible. Current Functional Ability: Assistive Equipment DME used at home: cane - straight, grab bar - tub/shower, grab bar - toilet, raised toilet seat DME Needed at Discharge: N/A Patient is insured through: Primary Insurance: [employer] MANAGED MEDICARE Payor: [employer] MEDICARE / Plan: [employer] MEDICARE PPO / Product Type: *No [...] in the room. Electrolytes replaced, see MAR. pit laborer sites remained C/D/I with baseline ecchymosis unchanged. Pt complained of back pain, lidocaine patch given. Right IV infiltrated during infusion, patient is marked with sharpie, IV removed. See flowsheet for I+O's and safety rounding. Patient is able to make needs known and call capps within reach. PLAN MOVING FORWARD: Monitor Tele, control BP, monitor cath lab tech sites, D/C Planning INDIVIDUALIZED FALL PREVENTION [...] an outpatient cardiac rehabilitation program at [facility] was discussed. Patient agrees to [...] on RA. PT went to cath lab tech today. Left fem site oozed throughout [...] Monitor Tele, control BP, monitor cath lab tech sites, D/C Planning INDIVIDUALIZED FALL PREVENTION [...] From: Transfer from another hospital Location: [facility] Reason for Hospitalization: chest pain Covid Vaccination Status: 1st, 2nd & booster Past medical History: No past medical history on file. Hospitalizations Within the Past 30 Days: no previous admission in last 30 days Current Decision-Making Capacity: Self If AD's have not been completed the following surrogate would be surrogate decision maker per [place] decision making law. (Only good for 180 days) Any patient receiving care in [place] must abide by [place] law. The hierarchy for surrogate decision making [...] The agent with financial power of attorney at law or a conservator appointed in accordance with [...] Arrangements: home/apartment/condo. Accessibility Concerns:1st floor apartment in intermediate community; handicapped accessible. In the last 12 months, was there a time when you were not able to pay the mortgage or rent on time?: No In the last 12 months, how many places have you lived?: 1 In the last 12 months, was there a time when you did not have a steady place to sleep or slept in [facility] (including now)?: No In the past 12 [...] toilet seat Home Address confirmed as: [address] [place] [id number] Social & Family Supports: All names listed below confirmed with patient as current and correct Extended Emergency Contact Information Primary Emergency Contact: Iris Downing Address: [address] [place], [place] [address] [place] [address] Mobile Relation: Child Secondary Emergency Contact: Karen More Address: [address] [facility] Mobile Relation: Child Current Care [...] Insurance: N/A Prescription Coverage: Yes Preferred Pharmacy: [id number] - [place], [place] - [address] [facility] [address] [facility] [address] Status: Patient is a : No Primary Care Provider listed: Masood Pierson MD [phone] Patient/Caregiver Goals of Treatment: home when MR Potential Needs for Transition of Care: home health care Agency Referrals: Not Applicable I have met with the patient to: discuss discharge planning needs. provide the [facility], Office of Care Management letter from the Librarian Specialist pertaining to rehab referrals. provide a letter describing our affiliations within the [facility] and educate about their right to choose where referrals are sent. provide a list of Home Health Agencies / Durable Medical Equipment vendors which serve their preferred geographic area. provided patient with [facility] Star Quality Rating handout. They have requested referrals to: [email or web address] [address] [place] [address] Note routed to a Loan Manager who will communicate referrals to facilities [...] results. PO hydralazine added for BP control. pit laborer sites remain C/D/I, ecchymosis unchanged th roughout shift. See flowsheet for I+O's and safety rounding. Patient is able to make needs known and call capps within reach. PLAN MOVING FORWARD: Monitor Tele, control CP and BP, NPO at MD for cath, monitor cath lab tech sites, D/C Planning INDIVIDUALIZED FALL PREVENTION [...] AM EDT Office Visit Cardiology at [address] [place] [address] Izaiah Meyer MD [facility] [place] [address] Scheduled Referrals Name Type Priority Associated Diagnoses [...] Absolute 5.28 1.70 - 6.10 x10(3)/mc L [facility] Lymph % 15.2 % [facility] Lymphocytes Abs 1.3 0.9 - 3.2 x10(3)/ L [facility] Monocyte % 16.9 % [facility] Monocyte Abs 1.4(H) 0.3 - 0.9 x10(3)/ L [facility] Eos % 3.7 % [facility] Eosinophils Abs 0.3 0.0 - 0.4 x10(3)/[facility] Basophil % 0.5 % [facility] Baso Absolute 0.0 0.0 - 0.1 x10(3)/ L [facility] Immature Gran % 0.40 % [facility] Comment: Immature granulocytes(IG's)percentage and absolute count will include metamyelocytes, myelocytes, and promyelocytes. Blood smears from CBCs yielding IG's will be scanned manually for concordance. If this scan disagrees with the automated IG or if promyelocytes are noted, a manual differential will be performed. Immature Gran Absolute 0.03 0.00 - 0.04 x10(3)/mc L [facility] Blood 11/03/2023 3:46 AM EDT 11/03/2023 4:11 AM EDT Narrative Resulting Agency Comment Spec In Lab Qamar Gallardo MD HEMATOLOGY ORDERABLE S [facility] [place] [address] * (ABNORMAL) Hemogram (11/03/2023 3:46 AM EDT) White Blood Cell 8.3 4.0 - 9.5 x10(3)/mc L [facility] Red Blood Cell 3.77(L) 4.00 - 5.21 x10(6)/mc L [facility] Hemoglobin 13.1 11.7 - 15.5 g/dL [facility] Hematocrit 38.0 35.7 - 45.8 % [facility] Mean Cell Volume 100.8(H) 82.6 - 94.4 fL [facility] Mean Cell Hemoglobin 34.7(H) 27.1 - 32.0 pg [facility] Mean Cell Hemoglobin Concentration 34.5 31.7 - 35.0 g/dL [facility] Platelet 181 145 - 357 x10(3)/[facility] RDW Standard Deviation 54.7(H) 37.0 - 46.0 [facility] RDW coefficient of variation 14.6(H) 11.5 - 14.1 % [facility] Mean Platelet Volume 11.2 7.6 - 12.9 [facility] NRBC% auto 0.0 % [facility] NRBC Absolute 0.000 0.000 - 0.000 x10(3)/ L [facility] Blood 11/03/2023 3:46 AM EDT 11/03/2023 4:11 AM EDT Narrative Resulting Agency Comment Spec In Lab Qamar Gallardo MD HEMATOLOGY ORDERABLE S [facility] [place] [address] * Phosphorus (11/03/2023 3:46 AM EDT) Phosphorus 3.2 2.5 - 4.5 mg/dL [facility] Comment:result rechecked-KS Blood 11/03/2023 3:46 AM EDT 11/03/2023 4:11 AM EDT Narrative Resulting Agency Comment Spec In Lab Rosa Cornejo MD CHEMISTRY ORDERABLE S [facility] [place] [address] * Magnesium (11/03/2023 3:46 AM EDT) Magnesium 0.90 0.69 - 1.07 mmol/L [facility] Blood 11/03/2023 3:46 AM EDT 11/03/2023 4:11 AM EDT Narrative Resulting Agency Comment Spec In Lab Rosa Cornejo MD CHEMISTRY ORDERABLE S Performing Organization Address City/[facility]/ZIP Co de Phone Number [facility] [place] [address] * (ABNORMAL) Basic Metabolic Panel (non-fasting) (11/03/2023 3:46 AM EDT) Glucose 105 65 - 199 mg/dL [facility] Comment:Diabetes: >=200 mg/d L plus symptoms Blood Urea Nitrogen 13 8 - 18 mg/dL [facility] Creatinine 0.83 0.70 - 1.20 mg/dL [facility] Sodium 139 135 - 145 mmol/L [facility] Potassium 4.0 3.5 - 5.0 mmol/L [facility] Comment: Please note: ??Patients with WBC >100,000 may have falsely elevated Potassium levels. ??For accurate Potassium quantification in these patients send serum separator tube (gold top) for subsequent determinations. ??Contact the Clinical Chemistry Laboratory if there are any questions. Chloride 108(H) 98 - 107 mmol/L [facility] Carbon Dioxide 19(L) 22 - 31 mmol/L [facility] Anion Gap 12 5 - 15 mmol/L [facility] Calcium 8.2(L) 8.5 - 10.5 mg/dL [facility] Est Glomerular Filtration Rate 69 >=60 mL/min/1. 73 m?? [facility] Comment: This patient's estimated [...] Lab Rosa Cornejo MD CHEMISTRY ORDERABLE S [facility] [place] [id number] * EKG 12 Lead (11/02/2023 12:44 PM EDT) Ventricular rate 83 BPM MUSE SYSTEM Atrial Rate 83 BPM MUSE SYSTEM P-R Interval 216 ms MUSE SYSTEM QRS Duration 90 ms MUSE SYSTEM Q-T Interval 384 ms MUSE SYSTEM QTC Calculated (Bezet) 451 ms MUSE SYSTEM Calculated P [place] 92 degrees MUSE SYSTEM Calculated R [place] -51 degrees MUSE SYSTEM Calculated T [place] -33 degrees MUSE SYSTEM INTERPRETATION Sinus rhythm with 1st degree A-V block with Premature atrial complexes Left axis deviation Moderate voltage criteria for LVH, may be normal variant ( R in aVL , Ifeanyi product ) Anterolatera l infarct (cited on or before 01-NOV-2023) Abnormal ECG When compared with ECG of 01-NOV-2023 22:10, Premature atrial complexes are now Present MN interval has increased Vent. rate has decreased BY ??56 BPM Confirmed by MD Kevin, Esteban ([id number]) on 11/02/2023 1:32:10 PM MUSE SYSTEM 11/02/2023 12:4 4 PM EDT 11/02/2023 1:32 PM EDT Rosa Hugo MD ECG ORDERABLES MUSE SYSTEM * (ABNORMAL) Urinalysis Microscopic Exam (11/02/2023 11:40 AM EDT) RBC, Urine <1 0 - 4 /HPF [facility] Comment: Interpret results with caution, microscopic results are from suboptimal specimen volume WBC, Urine 16(H) 0 - 5 /HPF [facility] Comment: Interpret results with caution, microscopic results are from suboptimal specimen volume Bacteria, Urine Many(A) None /HPF [facility] Squamous Epithelial Cells Raw Data, Urine 10(H) <=4 /HPF [facility] Hyaline Casts, Urine 2 0 - 2 /LPF [facility] Comment: Interpret results with caution, microscopic results are from suboptimal specimen volume Clean Catch Urine 11/02/2023 11:40 AM EDT 11/02/2023 12:05 PM EDT Narrative Resulting Agency Comment Spec In Lab Elmer Tamez MD URINE ORDERABLES Performing Organization Address City/[facility] Co de Phone Number [facility] [place] [address] * (ABNORMAL) Urinalysis with reflex Culture (11/02/2023 11:40 AM EDT) Glucose, Urine Dipstick Negative Negative mg/dL [facility] Protein, Urine Dipstick 30(A) Negative mg/dL [facility] Bilirubin, Urine Dipstick Negative Negative mg/dL [facility] Comment: Clinical correlation required for positive Urine Bilirubin results as false positive may occur with some drugs and drug related products. If a false positive is suspected a serum total bilirubin should be considered if clinically indicated. Urobilinogen, Urine Dipstick Normal Normal mg/dL [facility] pH, Urn (dipstick) 5.5 5.0 - 8.0 [facility] Blood, Urine Dipstick Negative Negative mg/dL [facility] Ketone, Urine Dipstick Trace(A) Negative mg/dL [facility] Nitrite, Urine Dipstick Positive(A) Negative [facility] Leukocytes, Urine Dipstick Small(A) Negative [facility] Appearance, Urine Dipstick Cloudy(A) Clear [facility] Specific [place] Urine Automated >=1.030(A) 1.005 - 1.030 [facility] Color, Urine Dipstick Dark Yellow Yellow [facility] Reflex to Culture Yes [facility] Clean Catch Urine 11/02/2023 11:40 AM EDT 11/02/2023 12:04 PM EDT Narrative Resulting Agency Comment Spec In Lab Rosa Hugo MD URINE ORDERABLES Performing Organization Address City/State/[facility] Co de Phone Number [facility] [place] [address] * Respiratory Panel PCR (11/02/2023 10:15 AM EDT) Respiratory Panel Source BATTERY STARTER Swab [facility] Respiratory Panel PCR Negative Negative [facility] Comment: Respiratory Panels are performed on the Spinnak[employer], using multiplexed PCR nucleic acid detection. ??Negative results do not preclude respiratory infection and should not be used as the sole basis for diagnosis, treatment or other management decisions. Adenovirus Not Detected Not Detected [facility] Coronavirus HKU1 Not Detected Not Detected [facility] Coronavirus NL63 Not Detected Not Detected [facility] Coronavirus 229E Not Detected Not Detected [facility] Coronavirus OC43 Not Detected Not Detected [facility] SARS-CoV-2 Not Detected Not Detected [facility] Comment: Testing for SARS-CoV-2 (Severe acute respiratory syndrome coronavirus 2) to aid in the diagnosis of COVID-19 is performed using the BioFire Respiratory Panel 2.1 (Rep) as authorized by the FDA issued Emergency Use Authorization (EUA). This panel also tests for multiple other viral and bacterial pathogens. This assay is intended for In-vitro Diagnostic (IVD) use with nasopharyngeal swabs in viral transport media. The assay is performed based on the instructions for use and additional guidance provided by the FDA. Testing is performed in laboratories within the [facility], each of which is certified [...] fact sheets at the following FDA website: https://www.fda.gov/medical-devices/katlmmfmzhq-ktpmqpv-5432-vdepq-16-drmoebcda- use-a akgujvszcrftx-wiystys-imdjdpx/wxlzo-bbdigxkfnzv-xnfj Human Metapneumovirus Not Detected Not Detected [facility] Human Rhinovirus/Enterov irus Not Detected Not Detected [facility] Influenza A Not Detected Not Detected [facility] Influenza B Not Detected Not Detected [facility] Parainfluenza 1 Not Detected Not Detected [facility] Parainfluenza 2 Not Detected Not Detected [facility] Parainfluenza 3 Not Detected Not Detected [facility] Parainfluenza 4 Not Detected Not Detected [facility] Respiratory Syncytial Virus Not Detected Not Detected [facility] Chlamydophila pneumoniae Not Detected Not Detected [facility] Mycoplasma pneumoniae Not Detected Not Detected [facility] Nasopharyngeal Swab 11/02/19 10:15 AM EDT 11/02/2023 10:49 AM EDT Narrative Resulting Agency Comment Spec In Lab Rosa Hugo MD MICROBIOLOGY - GEN ERAL ORDERABLES [facility] [place] [address] * XR Chest One View (11/02/2023 2:51 AM EDT) WORKSTATION ID [id number] RAD Anatomical Region Laterality Modality Chest N/A [...] who have questions please contact the health transitional care manager that requested your imaging first. ? Electronically signed by: Omaira Tran MD, [facility] ([phone]), at 11/02/2023 4:56 AM Narrative 11/02/2023 4:56 [...] patients who have questions please contactthe health transitional care manager that requested your imaging first. Electronically signed by: Omaira Tran MD, [facility]([phone]), at 11/02/2023 4:56 AM Rosa Hugo MD IMG DX ORDERABLES * (ABNORMAL) Differential, Automated (11/02/2023 12:35 AM EDT) Neutrophil % 76.5 % [facility] Neutrophil Absolute 7.69(H) 1.70 - 6.10 x10(3)/mc L [facility] Lymph % 8.3 % [facility] Lymphocytes Abs 0.8(L) 0.9 - 3.2 x10(3)/mc L [facility] Monocyte % 12.9 % [facility] Monocyte Abs 1.3(H) 0.3 - 0.9 x10(3)/mc L [facility] Eos % 1.4 % [facility] Eosinophils Abs 0.1 0.0 - 0.4 x10(3)/mc L [facility] Basophil % 0.4 % [facility] Baso Absolute 0.0 0.0 - 0.1 x10(3)/mc L [facility] Immature Gran % 0.50 % [facility] Comment: Immature granulocytes(IG's)percentage and absolute count will include metamyelocytes, myelocytes, and promyelocytes. Blood smears from CBCs yielding IG's will be scanned manually for concordance. If this scan disagrees with the automated IG or if promyelocytes are noted, a manual differential will be performed. Immature Gran Absolute 0.05(H) 0.00 - 0.04 x10(3)/mc L [facility] Blood 11/02/2023 12:3 5 AM EDT 11/02/2023 12:43 AM EDT Narrative Resulting Agency Comment Spec In Lab Qamar Gallardo MD HEMATOLOGY ORDERABLE S [facility] [place] [address] * (ABNORMAL) Hemogram (11/02/2023 12:35 AM EDT) White Blood Cell 10.0(H) 4.0 - 9.5 x10(3)/mc L [facility] Red Blood Cell 4.06 4.00 - 5.21 x10(6)/mc L [facility] Hemoglobin 13.8 11.7 - 15.5 g/dL [facility] Hematocrit 39.8 35.7 - 45.8 % [facility] Mean Cell Volume 98.0(H) 82.6 - 94.4 fL [facility] Mean Cell Hemoglobin 34.0(H) 27.1 - 32.0 pg [facility] Mean Cell Hemoglobin Concentration 34.7 31.7 - 35.0 g/dL [facility] Platelet 198 145 - 357 x10(3)/mc L [facility] RDW Standard Deviation 52.1(H) 37.0 - 46.0 fL [facility] RDW coefficient of variation 14.3(H) 11.5 - 14.1 % [facility] Mean Platelet Volume 11.4 7.6 - 12.9 [facility] NRBC% auto 0.0 % [facility] NRBC Absolute 0.000 0.000 - 0.000 x10(3)/ L [facility] Blood 11/02/2023 12:3 5 AM EDT 11/02/2023 12:43 AM EDT Narrative Resulting Agency Comment Spec In Lab Qamar Gallardo MD HEMATOLOGY ORDERABLE S [facility] [place] [address] * (ABNORMAL) Phosphorus (11/02/2023 12:35 AM EDT) Phosphorus 1.6(L) 2.5 - 4.5 mg/dL [facility] Blood 11/02/2023 12:3 5 AM EDT 11/02/2023 12:43 AM EDT Narrative Resulting Agency Comment Spec In Lab Rosa Cornejo MD CHEMISTRY ORDERABLE S [facility] [place] [address] * Magnesium (11/02/2023 12:35 AM EDT) Pathologist [facility] Magnesium 0.87 0.69 - 1.07 mmol/L [facility] Blood 11/02/2023 12:3 5 AM EDT 11/02/2023 12:43 AM EDT Narrative Resulting Agency Comment Spec In Lab Rosa Cornejo MD CHEMISTRY ORDERABLE S Performing Organization Address City/[facility]/ZIP Co de Phone Number [facility] [place] [address] * Basic Metabolic Panel (non-fasting) (11/02/2023 12:35 AM EDT) Glucose 125 65 - 199 mg/dL [facility] Comment:Diabetes: >=200 mg/d L plus symptoms Blood Urea Nitrogen 9 8 - 18 mg/dL [facility] Creatinine 0.83 0.70 - 1.20 mg/dL [facility] Sodium 136 135 - 145 mmol/L [facility] Potassium 3.6 3.5 - 5.0 mmol/L [facility] Comment: Please note: ??Patients with WBC >100,000 may have falsely elevated Potassium levels. ??For accurate Potassium quantification in these patients send serum separator tube (gold top) for subsequent determinations. ??Contact the Clinical Chemistry Laboratory if there are any questions. Chloride 102 98 - 107 mmol/L [facility] Carbon Dioxide 25 22 - 31 mmol/L [facility] Anion Gap 9 5 - 15 mmol/L [facility] Calcium 9.0 8.5 - 10.5 mg/dL [facility] Est Glomerular Filtration Rate 69 >=60 mL/min/1. 73 m?? [facility] Comment: This patient's estimated [...] Lab Rosa Cornejo MD CHEMISTRY ORDERABLE S [facility] [place] [address] * Blood culture (11/02/2023 12:35 AM EDT) Blood Culture No growth at 5 days. [facility] Blood 11/02/2023 12:3 5 AM EDT 11/02/2023 1:55 AM EDT Comment:#2 site ukn Narrative Resulting Agency Comment Spec In Lab Rosa Hugo MD MICROBIOLOGY - BLO OD ORDERABLES [facility] [place] [address] * Blood culture (11/02/2023 12:15 AM EDT) Blood Culture No growth at 5 days. [facility] Blood 11/02/2023 12:1 5 AM EDT 11/02/2023 1:54 AM EDT Comment:#1site unk Narrative Resulting Agency Comment Spec In Lab Rosa Hugo MD MICROBIOLOGY - BLO OD ORDERABLES Performing Organization Address City/[facility]/ZIP Co de Phone Number [facility] [place] [address] * EKG 12 Lead (11/01/2023 10:10 PM EDT) Ventricular rate 139 BPM MUSE SYSTEM Atrial Rate 139 BPM MUSE SYSTEM P-R Interval 168 ms MUSE SYSTEM QRS Duration 84 ms MUSE SYSTEM Q-T Interval 286 ms MUSE SYSTEM QTC Calculated (Bezet) 435 ms MUSE SYSTEM Calculated R Hayward -59 degrees MUSE SYSTEM Calculated T [place] -27 degrees MUSE SYSTEM INTERPRETATION Mid-RP tachycardia, [...] interpretation Confirmed by fellow MD Andrés, Enriqueta ([id number]) on 11/04/2023 7:57:50 AM Confirmed by MD Gerardo, Shameka ([id number]) on 11/04/2023 4:32:03 PM MUSE SYSTEM 11/01/2023 10:1 0 PM EDT 11/04/2023 4:32 PM EDT Rosa Cornejo MD ECG ORDERABLES Performing Organization Address City/[facility]/ZIP Co de Phone Number MUSE SYSTEM * (ABNORMAL) Hemogram (11/01/2023 10:06 PM EDT) White Blood Cell 10.4(H) 4.0 - 9.5 x10(3)/ L [facility] Red Blood Cell 4.11 4.00 - 5.21 x10(6)/ L [facility] Hemoglobin 14.0 11.7 - 15.5 g/dL [facility] Hematocrit 41.1 35.7 - 45.8 % [facility] Mean Cell Volume 100.0(H) 82.6 - 94.4 fL [facility] Mean Cell Hemoglobin 34.1(H) 27.1 - 32.0 pg [facility] Mean Cell Hemoglobin Concentration 34.1 31.7 - 35.0 g/dL [facility] Platelet 197 145 - 357 x10(3)/[facility] RDW Standard Deviation 54.0(H) 37.0 - 46.0 fL [facility] RDW coefficient of variation 14.6(H) 11.5 - 14.1 % [facility] Mean Platelet Volume 11.2 7.6 - 12.9 fL [facility] NRBC% auto 0.0 % [facility] NRBC Absolute 0.000 0.000 - 0.000 x10(3)/[facility] Blood 11/01/2023 10:0 6 PM EDT 11/01/2023 10:22 PM EDT Narrative Resulting Agency Comment Spec In Lab Rosa Hugo MD HEMATOLOGY ORDERAB LES [facility] [place] [address] * POCT Glucose (11/01/2023 5:59 PM EDT) Glucose, POC 104 65 - 199 mg/dL [facility] Comment: Supplemental ranges: <140 mg/dL before meals <180 mg/dL all other times of the day Blood 11/01/2023 5:59 PM EDT 11/01/2023 5:59 PM EDT Rosa Hugo MD POINT OF CARE TEST ORDERABLES [facility] [place] [address] * POCT Glucose (11/01/2023 5:35 PM EDT) Glucose, POC 85 65 - 199 mg/dL [facility] Comment: Supplemental ranges: <140 mg/dL before meals <180 mg/dL all other times of the day Blood 11/01/2023 5:35 PM EDT 11/01/2023 5:35 PM EDT Rosa Hugo MD POINT OF CARE TEST ORDERABLES Performing Organization Address City/[facility] Co de Phone Number [facility] [place] [address] * EKG 12 Lead (11/01/2023 3:22 PM EDT) Ventricular rate 59 BPM MUSE SYSTEM Atrial Rate 59 BPM MUSE SYSTEM P-R Interval 220 ms MUSE SYSTEM QRS Duration 94 ms MUSE SYSTEM Q-T Interval 428 ms MUSE SYSTEM QTC Calculated (Bezet) 423 ms MUSE SYSTEM Calculated P Hayward 76 degrees MUSE SYSTEM Calculated R [place]ward -50 degrees MUSE SYSTEM Calculated T Hayward -59 degrees MUSE SYSTEM INTERPRETATION Sinus bradycardia with sinus arrhythmia with 1st degree A-V block Left anterior fascicular block Moderate voltage criteria for LVH, may be normal variant ( R in aVL , [place] product ) Cannot rule out Inferior infarct [...] Modality Other Narrative 11/02/2023 4:57 PM EDT ?[facility] ? Cardiac Catheterization/Intervention Report ? Patient Name: Joleen, Aidn Catherine. ? Procedure Date: 11/01/2023 ? A #: [id number] ? Primary Physician: Rosa Dewey I ? Case #: [id number] ? File Name: [id number] ? Catheterization Order Number: [id number] ? [facility] ? Final Report [place], [place] ? Patient Name: ? Adin Townsendjosue ?ID#: ?[id number] ? : ?1940 ? Procedure Date: ? [...] Urgent. The indication for ?the cath lab tech visit is ACS greater than 24 [...] premounted ? 3.50 x 15 mm Andrea Victoria (RADHA) was deployed with a maximum ? [...] ? A premounted 3.50 x 15 mm [place] Victoria (RADHA) was deployed ? with a maximum [...] prior to arrival in the cath lab tech. ?Recommended anti-platelet/anti-thrombotic regimen: ?Continue aspirin 81 [...] Note Otto, Rosa I, MD - 12/12/2023 [facility] Cardiac Catheterization/Intervention Report Patient Name: Adin Santos Procedure Date: 11/01/2023 A #: [id number] Primary Physician: Rosa Dewey I Case #: [id number] File Name: [id number] Catheterization Order Number: [id number] [facility] FinalReport [place], [place] Patient Name: Adin Santos ID#:[id number] :1940 Procedure Date: November 01, 2023 Case [...] was Urgent. The indicationfor the cath lab tech visit is ACS greater than 24 [...] 14 atmospheres. Apremounted 3.50 x 15 mm [place] Victoria (RADHA) was deployed with amaximum inflation pressure [...] The lesion was predilated with a 3.00mm [id number] MM balloon with a maximum inflation pressure of 14atmospheres. A premounted 3.50 x 15 mm Andrea Victoria (RADHA) wasdeployed with a maximum inflation pressure [...] prior to arrival in the cath lab tech. Recommended anti-platelet/anti-thrombotic regimen: Continue aspirin 81 [...] * POCT Glucose (11/01/2023 7:06 AM EDT) [facility] Glucose, POC 93 65 - 199 mg/dL [facility] Comment: Supplemental ranges: <140 mg/dL before meals <180 mg/dL all other times of the day Blood 11/01/2023 7:06 AM EDT 11/01/2023 7:06 AM EDT Jean Laboy MD POINT OF CARE TEST O RDERABLES [facility] [place] [address] * (ABNORMAL) Differential, Automated (11/01/2023 3:09 AM EDT) [facility] Neutrophil % 63.9 % [facility] Neutrophil Absolute 5.54 1.70 - 6.10 x10(3)/mc L [facility] Lymph % 20.0 % [facility] Lymphocytes Abs 1.7 0.9 - 3.2 x10(3)/mc L [facility] Monocyte % 11.9 % [facility] Monocyte Abs 1.0(H) 0.3 - 0.9 x10(3)/mc L [facility] Eos % 3.2 % [facility] Eosinophils Abs 0.3 0.0 - 0.4 x10(3)/mc L [facility] Basophil % 0.5 % [facility] Baso Absolute 0.0 0.0 - 0.1 x10(3)/mc L [facility] Immature Gran % 0.50 % [facility] Comment: Immature granulocytes(IG's)percentage and absolute count will include metamyelocytes, myelocytes, and promyelocytes. Blood smears from CBCs yielding IG's will be scanned manually for concordance. If this scan disagrees with the automated IG or if promyelocytes are noted, a manual differential will be performed. Immature Gran Absolute 0.04 0.00 - 0.04 x10(3)/ L [facility] Blood 11/01/2023 3:09 AM EDT 11/01/2023 3:29 AM EDT Narrative Resulting Agency Comment Spec In Lab Qamar Gallardo MD HEMATOLOGY ORDERABLE S Performing Organization Address City/State/[facility] Co de Phone Number [facility] [place] [address] * (ABNORMAL) Hemogram (11/01/2023 3:09 AM EDT) White Blood Cell 8.7 4.0 - 9.5 x10(3)/ L [facility] Red Blood Cell 3.72(L) 4.00 - 5.21 x10(6)/mc L [facility] Hemoglobin 12.5 11.7 - 15.5 g/dL [facility] Hematocrit 36.8 35.7 - 45.8 % [facility] Mean Cell Volume 98.9(H) 82.6 - 94.4 fL [facility] Mean Cell Hemoglobin 33.6(H) 27.1 - 32.0 pg [facility] Mean Cell Hemoglobin Concentration 34.0 31.7 - 35.0 g/dL [facility] Platelet 184 145 - 357 x10(3)/ L [facility] RDW Standard Deviation 53.5(H) 37.0 - 46.0 fL [facility] RDW coefficient of variation 14.6(H) 11.5 - 14.1 % [facility] Mean Platelet Volume 11.3 7.6 - 12.9 fL [facility] NRBC% auto 0.0 % [facility] NRBC Absolute 0.000 0.000 - 0.000 x10(3)/mc L [facility] Blood 11/01/2023 3:09 AM EDT 11/01/2023 3:29 AM EDT Narrative Resulting Agency Comment Spec In Lab Qamar Gallardo MD HEMATOLOGY ORDERABLE S Performing Organization Address City/[facility]/ZIP Co de Phone Number [facility] [place] [address] * Phosphorus (11/01/2023 3:09 AM EDT) Phosphorus 2.5 2.5 - 4.5 mg/dL [facility] Blood 11/01/2023 3:09 AM EDT 11/01/2023 3:29 AM EDT Narrative Resulting Agency Comment Spec In Lab Rosa Cornejo MD CHEMISTRY ORDERABLE S Performing Organization Address City/[facility]/ZIP Co de Phone Number [facility] [place] [address] * Magnesium (11/01/2023 3:09 AM EDT) Magnesium 0.82 0.69 - 1.07 mmol/L [facility] Blood 11/01/2023 3:09 AM EDT 11/01/2023 3:29 AM EDT Narrative Resulting Agency Comment Spec In Lab Rosa Cornejo MD CHEMISTRY ORDERABLE S Performing Organization Address City/[facility]/ZIP Co de Phone Number [facility] [place] [address] * (ABNORMAL) Basic Metabolic Panel (non-fasting) (11/01/2023 3:09 AM EDT) Glucose 100 65 - 199 mg/dL [facility] Comment:Diabetes: >=200 mg/d L plus symptoms Blood Urea Nitrogen 14 8 - 18 mg/dL [facility] Creatinine 0.83 0.70 - 1.20 mg/dL [facility] Sodium 137 135 - 145 mmol/L [facility] Potassium 3.4(L) 3.5 - 5.0 mmol/L [facility] Comment: Please note: ??Patients with WBC >100,000 may have falsely elevated Potassium levels. ??For accurate Potassium quantification in these patients send serum separator tube (gold top) for subsequent determinations. ??Contact the Clinical Chemistry Laboratory if there are any questions. Chloride 105 98 - 107 mmol/L [facility] Carbon Dioxide 24 22 - 31 mmol/L [facility] Anion Gap 8 5 - 15 mmol/L [facility] Calcium 8.6 8.5 - 10.5 mg/dL [facility] Est Glomerular Filtration Rate 69 >=60 mL/min/1. 73 m?? [facility] Comment: This patient's estimated [...] Lab Rosa Cornejo MD CHEMISTRY ORDERABLE S [facility] [place] [address] * (ABNORMAL) Troponin (10/31/2023 2:46 PM EDT) Troponin-T, High Sensitivity 544(H) <=14 ng/L [facility] Comment: This patient's troponin [...] troponin value can be found in the [facility] Laboratory Test Catalog Troponin - [facility] Test Catalog Reference: Fourth Sula Definition of Myocardial Infarction. Journal of the [place] [employer] 2018;72:0001-9773 Blood 10/31/2023 2:46 PM EDT 10/31/2023 2:55 PM EDT Narrative Resulting Agency Comment Spec In Lab Jean Laboy MD CHEMISTRY ORDERABLES [facility] [place] [address] * EKG 12 Lead (10/31/2023 1:07 PM EDT) Ventricular rate 54 BPM MUSE SYSTEM Atrial Rate 54 BPM MUSE SYSTEM P-R Interval 218 ms MUSE SYSTEM QRS Duration 92 ms MUSE SYSTEM Q-T Interval 540 ms MUSE SYSTEM QTC Calculated (Bezet) 512 ms MUSE SYSTEM Calculated P Hayward 85 degrees MUSE SYSTEM Calculated R [place] -44 degrees MUSE SYSTEM Calculated T [place] -69 degrees MUSE SYSTEM INTERPRETATION Sinus bradycardia [...] EDT) Troponin-T, High Sensitivity 580(H) <=14 ng/L [facility] Comment: This patient's troponin [...] troponin value can be found in the [facility] Test Catalog Troponin - [facility] Test Catalog Reference: Fourth [place]ula Definition of Myocardial Infarction. Journal of the [place] [employer] 2018;72:1906-9849 Blood 10/31/2023 11:3 7 AM EDT 10/31/2023 11:50 AM EDT Narrative Resulting Agency Comment Spec In Lab Rosa Cornejo MD CHEMISTRY ORDERABLE S Performing Organization Address [facility]/State/ZIP Co de Phone Number [facility] [place] [address] * ECHO COMPLETE (10/31/2023 8:52 AM EDT) Anatomical Region Laterality Modality Cardiac Other 10/31/2023 7:57 AM EDT Narrative 10/31/2023 9:45 AM EDT [address] [place] [address] ? Echocardiogram Report Name: ADIN SANTOS ? Study Date: 10/31/2023 07:57 AMBP: 106/76 mmHg ? Patient Location: [id number] A : 1940 ? Height: 163 cm ? Account: [id number] Age: 83 yrs ? Weight: 76 kg [...] is no prior echocardiogram for comparison. Procedure Complete-20481. Satisfactory quality. There is sinus bradycardia. Left [...] Note Edgard Wang MD - 10/31/2023 [address] [place] [address] Echocardiogram Report Name: ADIN SANTOS Study Date: 407:57 AMBP: 106/76 mmHg Patient Location: [id number] A : 1940 Height: 163 cm Account: [id number] Age: 83 yrs Weight: 76 kg Gender: [...] is no prior echocardiogram for comparison. Procedure Complete-77096. Satisfactory quality. There is sinus bradycardia. Left [...] EDT) Troponin-T, High Sensitivity 571(H) <=14 ng/L [facility] Comment: This patient's troponin [...] troponin value can be found in the [facility] Laboratory Test Catalog Troponin - [facility] Test Catalog Reference: Fourth [place] Definition of Myocardial Infarction. Journal of the [place] [employer] 2018;72:0889-8198 Blood 10/31/2023 8:51 AM EDT 10/31/2023 9:12 AM EDT Narrative Resulting Agency Comment Spec In Lab Rosa Cornejo MD CHEMISTRY ORDERABLE S [facility] [place] [address] * CARDIAC CATHETERIZATION (10/31/2023 8:10 AM EDT) Anatomical Region Laterality Modality Other Narrative 11/07/2023 9:42 AM EDT ?[facility] ? Cardiac Catheterization/Intervention Report ? Patient Name: Adin Santos. ? Procedure Date: 10/30/2023 ? A #: [id number] ? Primary Physician: Rosa Dewey I ? Case #: [id number] ? File Name: [id number] ? Catheterization Order Number: [id number] ? [facility] ? Final Report [place], [place] ? Patient Name: ? Adin M. Goguen ?ID#: ?[id number] ? : ?1940 ? Procedure Date: ? [...] Emergent. The indication for ?the cath lab tech visit is ACS less than or [...] A premounted 4.00 x 38 mm Andrea Victoria (RADHA) was deployed ? with a maximum [...] prior to arrival in the cath lab tech. ?Recommended anti-platelet/anti-thrombotic regimen: ?Continue aspirin 81 [...] Procedure Note Rosa Dewey MD - 12/05/2023 [facility] Cardiac Catheterization/Intervention Report Patient Name: Adin Santos Procedure Date: 10/30/2023 A #: [id number] Primary Physician: Rosa Dewey I Case #: [id number] File Name: [id number] Catheterization Order Number: [id number] [facility] FinalReport [place], [place] Patient Name: Adin CatherineYasir Edvinree ID#:[id number] :1940 Procedure Date: October 30, 2023 Case #: [id number] Room: 5 Case Physician: Rosa Dewey M.D. [...] was designated as ASA Class III. The [facility] clinical frailtyscale is 5: Mildly Frail. Diagnostic Tests: Electrocardiography: EKG was assessed by ECG. EKG was Abnormal. EKG showed STDeviation >= 0.5 mm, other abnormality and dynamic EKG changes. Medications Prior to Procedure: Aspirin, Angiotensin II Receptor Kristy, Beta Kristy andStatin. Indications for Diagnostic Cath: The priority of the diagnostic procedure was Emergent. Theindication for the cath lab tech visit is ACS less than or [...] The priority for the procedure was Emergent.The [facility] indication for the procedure was [...] A premounted 4.00 x 38 mm Andrea Victoria (RADHA) wasdeployed with a maximum inflation pressure [...] prior to arrival in the cath lab tech. Recommended anti-platelet/anti-thrombotic regimen: Continue aspirin 81 [...] * (ABNORMAL) Troponin (10/31/2023 4:21 AM EDT) [facility] Troponin-T, High Sensitivity 457(H) <=14 ng/L [facility] Comment: This patient's troponin [...] troponin value can be found in the [facility] Laboratory Test Catalog Troponin - [facility] Test Catalog Reference: Fourth [place] Definition of Myocardial Infarction. Journal of the [place] [employer] 2018;72:6312-2771 Blood 10/31/2023 4:21 AM EDT 10/31/2023 4:30 AM EDT Narrative Resulting Agency Comment Spec In Lab Rosa Cornejo MD CHEMISTRY ORDERABLE S [facility] [place] [address] * (ABNORMAL) Differential, Automated (10/31/2023 3:05 AM EDT) Neutrophil % 71.7 % [facility] Neutrophil Absolute 8.21(H) 1.70 - 6.10 x10(3)/mc L [facility] Lymph % 16.9 % [facility] Lymphocytes Abs 1.9 0.9 - 3.2 x10(3)/mc L [facility] Monocyte % 9.4 % [facility] Monocyte Abs 1.1(H) 0.3 - 0.9 x10(3)/mc L [facility] Eos % 1.3 % [facility] Eosinophils Abs 0.2 0.0 - 0.4 x10(3)/mc L [facility] Basophil % 0.4 % [facility] Baso Absolute 0.0 0.0 - 0.1 x10(3)/mc L [facility] Immature Gran % 0.30 % [facility] Comment: Immature granulocytes(IG's)percentage and absolute count will include metamyelocytes, myelocytes, and promyelocytes. Blood smears from CBCs yielding IG's will be scanned manually for concordance. If this scan disagrees with the automated IG or if promyelocytes are noted, a manual differential will be performed. Immature Gran Absolute 0.04 0.00 - 0.04 x10(3)/mc L [facility] Blood 10/31/2023 3:05 AM EDT 10/31/2023 3:13 AM EDT Narrative Resulting Agency Comment Spec In Lab Qamar Gallardo MD HEMATOLOGY ORDERABLE S [facility] [place] [address] * (ABNORMAL) Hemogram (10/31/2023 3:05 AM EDT) White Blood Cell 11.5(H) 4.0 - 9.5 x10(3)/ L [facility] Red Blood Cell 3.75(L) 4.00 - 5.21 x10(6)/[facility] Hemoglobin 12.6 11.7 - 15.5 g/dL [facility] Hematocrit 37.1 35.7 - 45.8 % [facility] Mean Cell Volume 98.9(H) 82.6 - 94.4 fL [facility] Mean Cell Hemoglobin 33.6(H) 27.1 - 32.0 pg [facility] Mean Cell Hemoglobin Concentration 34.0 31.7 - 35.0 g/dL [facility] Platelet 206 145 - 357 x10(3)/ L [facility] RDW Standard Deviation 53.4(H) 37.0 - 46.0 [facility] RDW coefficient of variation 14.6(H) 11.5 - 14.1 % [facility] Mean Platelet Volume 11.1 7.6 - 12.9 [facility] NRBC% auto 0.0 % [facility] NRBC Absolute 0.000 0.000 - 0.000 x10(3)/ L [facility] Blood 10/31/2023 3:05 AM EDT 10/31/2023 3:13 AM EDT Narrative Resulting Agency Comment Spec In Lab Qamar Gallardo MD HEMATOLOGY ORDERABLE S Performing Organization Address [facility] Co de Phone Number [facility] [place] [address] * (ABNORMAL) APTT (10/31/2023 3:05 AM EDT) Partial Thromboplastin Time 67(H) 25 - 37 sec [facility] Comment: The PTT is NOT appropriate for heparin monitoring. Use the Anti-Xa level for heparin monitoring (HEP UFH) or LMWH monitoring (HEP LMW). A PTT less than 37 seconds generally indicates adequate hemostasis. Blood 10/31/2023 3:05 AM EDT 10/31/2023 3:13 AM EDT Narrative Resulting Agency Comment Spec In Lab Rosa Cornejo MD HEMATOLOGY ORDERABL ES Performing Organization Address [facility] de Phone Number [facility] [place] [address] * (ABNORMAL) Prothrombin Time (10/31/2023 3:05 AM EDT) Prothrombin Time 12.6(H) 9.4 - 12.5 sec [facility] International Normalization Ratio 1.1 [facility] Comment: An INR <2.0 [...] Comment Spec In Lab Rosa oCrnejo MD HEMATOLOGY ORDERABL ES Performing Organization Address [facility] Co de [place] [address] * (ABNORMAL) Differential, Automated (10/31/2023 1:37 AM EDT) Pathologist [facility] Neutrophil % 71.1 % [facility] Neutrophil Absolute 7.53(H) 1.70 - 6.10 x10(3)/ L [facility] Lymph % 18.0 % [facility] Lymphocytes Abs 1.9 0.9 - 3.2 x10(3)/ L [facility] Monocyte % 8.7 % [facility] Monocyte Abs 0.9 0.3 - 0.9 x10(3)/[facility] Eos % 1.6 % [facility] Eosinophils Abs 0.2 0.0 - 0.4 x10(3)/[facility] Basophil % 0.4 % [facility] Baso Absolute 0.0 0.0 - 0.1 x10(3)/[facility] Immature Gran % 0.20 % [facility] Comment: Immature granulocytes(IG's)percentage and absolute count will include metamyelocytes, myelocytes, and promyelocytes. Blood smears from CBCs yielding IG's will be scanned manually for concordance. If this scan disagrees with the automated IG or if promyelocytes are noted, a manual differential will be performed. Immature Gran Absolute 0.02 0.00 - 0.04 x10(3)/ L [facility] Blood 10/31/2023 1:37 AM EDT 10/31/2023 1:46 AM EDT Narrative Resulting Agency Comment Spec In Lab Qamar Gallardo MD HEMATOLOGY ORDERABLE S [facility] [place] [address] * (ABNORMAL) Hemogram (10/31/2023 1:37 AM EDT) Pathologist [facility] White Blood Cell 10.6(H) 4.0 - 9.5 x10(3)/mc L [facility] Red Blood Cell 3.78(L) 4.00 - 5.21 x10(6)/mc L [facility] Hemoglobin 13.0 11.7 - 15.5 g/dL [facility] Hematocrit 37.9 35.7 - 45.8 % [facility] Mean Cell Volume 100.3(H) 82.6 - 94.4 fL [facility] Mean Cell Hemoglobin 34.4(H) 27.1 - 32.0 pg [facility] Mean Cell Hemoglobin Concentration 34.3 31.7 - 35.0 g/dL [facility] Platelet 204 145 - 357 x10(3)/ L [facility] RDW Standard Deviation 54.3(H) 37.0 - 46.0 fL [facility] RDW coefficient of variation 14.6(H) 11.5 - 14.1 % [facility] Mean Platelet Volume 11.1 7.6 - 12.9 fL [facility] NRBC% auto 0.0 % [facility] NRBC Absolute 0.000 0.000 - 0.000 x10(3)/ L [facility] Blood 10/31/2023 1:37 AM EDT 10/31/2023 1:46 AM EDT Narrative Resulting Agency Comment Spec In Lab Qamar Gallardo MD HEMATOLOGY ORDERABLE S [facility] [place] [address] * Phosphorus (10/31/2023 1:37 AM EDT) Phosphorus 3.2 2.5 - 4.5 mg/dL [facility] Blood 10/31/2023 1:37 AM EDT 10/31/2023 1:46 AM EDT Narrative Resulting Agency Comment Spec In Lab Rosa Cornejo MD CHEMISTRY ORDERABLE S [facility] [place] [address] * Magnesium (10/31/2023 1:37 AM EDT) Pathologist [facility] Magnesium 0.83 0.69 - 1.07 mmol/L [facility] Blood 10/31/2023 1:37 AM EDT 10/31/2023 1:46 AM EDT Narrative Resulting Agency Comment Spec In Lab Rosa Cornejo MD CHEMISTRY ORDERABLE S Performing Organization Address [facility] Co de Phone Number [facility] [place] [address] * Basic Metabolic Panel (non-fasting) (10/31/2023 1:37 AM EDT) Pathologist [facility] Glucose 114 65 - 199 mg/dL [facility] Comment:Diabetes: >=200 mg/d L plus symptoms Blood Urea Nitrogen 13 8 - 18 mg/dL [facility] Creatinine 0.81 0.70 - 1.20 mg/dL [facility] Sodium 140 135 - 145 mmol/L [facility] Potassium 3.9 3.5 - 5.0 mmol/L [facility] Comment: Please note: ??Patients with WBC >100,000 may have falsely elevated Potassium levels. ??For accurate Potassium quantification in these patients send serum separator tube (gold top) for subsequent determinations. ??Contact the Clinical Chemistry Laboratory if there are any questions. Chloride 107 98 - 107 mmol/L [facility] Carbon Dioxide 25 22 - 31 mmol/L [facility] Anion Gap 8 5 - 15 mmol/L [facility] Calcium 8.6 8.5 - 10.5 mg/dL [facility] Est Glomerular Filtration Rate 72 >=60 mL/min/1. 73 m?? [facility] Comment: This patient's estimated [...] Lab Rosa Cornejo MD CHEMISTRY ORDERABLE S [facility] [place] [address] * (ABNORMAL) Troponin (10/31/2023 1:37 AM EDT) Troponin-T, High Sensitivity 329(H) <=14 ng/L [facility] Comment: This patient's troponin [...] troponin value can be found in the [facility] Test Catalog Troponin - [facility] Test Catalog Reference: Fourth [place] Definition of Myocardial Infarction. Journal of the [place] [employer] 2018;72:8616-3131 Blood 10/31/2023 1:37 AM EDT 10/31/2023 1:46 AM EDT Narrative Resulting Agency Comment Spec In Lab Rosa Cornejo MD CHEMISTRY ORDERABLE S Performing Organization Address [facility]/ZIP Co de Phone Number [facility] [place] [address] * EKG 12 Lead (10/31/2023 1:20 AM EDT) Ventricular rate 52 BPM MUSE SYSTEM Atrial Rate 52 BPM MUSE SYSTEM P-R Interval 224 ms MUSE SYSTEM QRS Duration 108 ms MUSE SYSTEM Q-T Interval 544 ms MUSE SYSTEM QTC Calculated (Bezet) 505 ms MUSE SYSTEM Calculated P [place] 90 degrees MUSE SYSTEM Calculated R [place] -57 degrees MUSE SYSTEM Calculated T [place] -63 degrees MUSE SYSTEM INTERPRETATION Sinus bradycardia [...] Cornejo MD ECG ORDERABLES Performing Organization Address City/[facility]/ZIP Co de Phone Number MUSE SYSTEM * EKG 12 Lead (10/30/2023 10:40 PM EDT) Ventricular rate 55 BPM MUSE SYSTEM Atrial Rate 55 BPM MUSE SYSTEM P-R Interval 232 ms MUSE SYSTEM QRS Duration 102 ms MUSE SYSTEM Q-T Interval 520 ms MUSE SYSTEM QTC Calculated (Bezet) 497 ms MUSE SYSTEM Calculated P [place] 75 degrees MUSE SYSTEM Calculated R [place] -53 degrees MUSE SYSTEM Calculated T [place] -57 degrees MUSE SYSTEM INTERPRETATION Sinus bradycardia [...] Chest One View (10/30/2023 10:10 PM EDT) [employer]rigg WORKSTATION ID [id number] DH RAD Anatomical Region Laterality Modality Chest [...] and low lung volumes. Findings similar to targeteer radiograph from CT 10/30/2023. Thank you for letting us participate in the care of this patient. ??If you are a health care provider and have any questions regarding this report, please contact the number below. ??For patients who have questions please contact the health transitional care manager that requested your imaging first. [...] and low lung volumes. Findings similar to targeteer radiograph from CT 10/30/2023. Thank you for letting us participate in the care of this patient. If youare a health care provider and have any questions regarding this report,please contact the number below. For patients who have questions please contactthe health transitional care manager that requested your imaging first. Rosa Cornejo MD IMG DX ORDERABLES * Green Tube HOLD (10/30/2023 10:05 PM EDT) Pathologist [facility] Green Hold Sample in lab. [facility] Blood Venous Draw / Unknown 10/30/2023 10:05 PM EDT 10/30/2023 10:13 PM EDT Qamar Gallardo MD CHEMISTRY ORDERABLES [facility] [place] [address] * (ABNORMAL) Differential, Automated (10/30/2023 10:05 PM EDT) Pathologist [facility] Neutrophil % 76.6 % [facility] Neutrophil Absolute 6.94(H) 1.70 - 6.10 x10(3)/mc L [facility] Lymph % 15.4 % [facility] Lymphocytes Abs 1.4 0.9 - 3.2 x10(3)/mc L [facility] Monocyte % 6.1 % [facility] Monocyte Abs 0.6 0.3 - 0.9 x10(3)/mc L [facility] Eos % 1.1 % [facility] Eosinophils Abs 0.1 0.0 - 0.4 x10(3)/mc L [facility] Basophil % 0.6 % [facility] Baso Absolute 0.0 0.0 - 0.1 x10(3)/mc L [facility] Immature Gran % 0.20 % [facility] Comment: Immature granulocytes(IG's)percentage and absolute count will include metamyelocytes, myelocytes, and promyelocytes. Blood smears from CBCs yielding IG's will be scanned manually for concordance. If this scan disagrees with the automated IG or if promyelocytes are noted, a manual differential will be performed. Immature Gran Absolute 0.02 0.00 - 0.04 x10(3)/mc L [facility] Blood 10/30/2023 10:0 5 PM EDT 10/30/2023 10:12 PM EDT Narrative Resulting Agency Comment Spec In Lab Qamar Gallardo MD HEMATOLOGY ORDERABLE S [facility] [place] [address] * (ABNORMAL) Hemogram (10/30/2023 10:05 PM EDT) White Blood Cell 9.0 4.0 - 9.5 x10(3)/mc L [facility] Red Blood Cell 3.96(L) 4.00 - 5.21 x10(6)/mc L [facility] Hemoglobin 13.3 11.7 - 15.5 g/dL [facility] Hematocrit 39.1 35.7 - 45.8 % [facility] Mean Cell Volume 98.7(H) 82.6 - 94.4 fL [facility] Mean Cell Hemoglobin 33.6(H) 27.1 - 32.0 pg [facility] Mean Cell Hemoglobin Concentration 34.0 31.7 - 35.0 g/dL [facility] Platelet 211 145 - 357 x10(3)/mc L [facility] RDW Standard Deviation 53.6(H) 37.0 - 46.0 fL [facility] RDW coefficient of variation 14.6(H) 11.5 - 14.1 % [facility] Mean Platelet Volume 11.1 7.6 - 12.9 fL [facility] NRBC% auto 0.0 % [facility] NRBC Absolute 0.000 0.000 - 0.000 x10(3)/mc L [facility] Blood 10/30/2023 10:0 5 PM EDT 10/30/2023 10:12 PM EDT Narrative Resulting Agency Comment Spec In Lab Qamar Gallardo MD HEMATOLOGY ORDERABLE S Performing Organization Address [facility] Co de Phone Number [facility] [place] [address] * Hemoglobin A1c (10/30/2023 10:05 PM EDT) Hemoglobin A1c 5.5 4.3 - 5.6 % [facility] Comment: Reference Range: 4.3 [...] Mellitus, Diabetes Care 2013; 36: Suppl. 1, S67-01 Estimated Average Glucose See note mg/dL [facility] Comment: Estimated Average Glucose not appropriate for patients over 70 years of age. Blood 10/30/2023 10:0 5 PM EDT 10/30/2023 10:12 PM EDT Narrative Resulting Agency Comment Spec In Lab Rosa Cornejo MD CHEMISTRY ORDERABLE S Performing Organization Address [facility] Co de Phone Number [facility] [place] [address] * Lipid Panel (Reflex Direct LDL) (10/30/2023 10:05 PM EDT) Cholesterol, Total 218 mg/dL [facility] Comment: Desirable: ? <200 mg/dL Borderline High: 200-239 mg/dL Higher: ?>zb=242 mg/dL Triglyceride 46 mg/dL [facility] Comment: Normal: ?<150 mg/dL Borderline High: 150-199 mg/dL High: ?200-499 mg/dL Very High: ? >dp=323 mg/dL HDL Cholesterol 64 mg/dL [facility] Comment: Females: High Risk: <50 mg/dL Males: High Risk: <40 mg/dL LDL Cholesterol 145 mg/dL [facility] Comment: Desirable: ? <100 mg/dL Above Desirable: 100-129 mg/dL Borderline High: 130-159 mg/dL High: ?160-189 mg/dL Very High: ? >wu=733 mg/dL Lipid Interpretation See Note [facility] Comment: It is important [...] ACC/AHA Guidelines (most recently Feliciano et al. [facility] 03/23/22): For individuals with atherosclerotic cardiovascular disease (ASCVD)or LDL >ib=657 mg/dL, use a high-intensity statin (40-80 mg [...] MD CHEMISTRY ORDERABLE S Performing Organization Address [facility] Co de Phone Number [facility] [place] [address] * TSH [place] (10/30/2023 10:05 PM EDT) Thyroid Stimulating Hormone 3.35 0.27 - 4.20 mcIU/mL [facility] Comment: Reference Interval (mcIU/mL): Females: ??First Trimester: 0.23-3.88 ??Second Trimester: 0.22-3.90 ??Third Trimester: 0.44-4.66 Blood 10/30/2023 10:0 5 PM EDT 10/30/2023 10:12 PM EDT Narrative Resulting Agency Comment Spec In Lab Rosa Cornejo MD CHEMISTRY ORDERABLE S Performing Organization Address [facility] Co de Phone Number [facility] [place] [address] * pro-Brain Natriuretic Peptide (10/30/2023 10:05 PM EDT) NT-proBNP 375 <=449 pg/mL [facility] Blood 10/30/2023 10:0 5 PM EDT 10/30/2023 10:12 PM EDT Narrative Resulting Agency Comment Spec In Lab Rosa Cornejo MD CHEMISTRY ORDERABLE S [facility] [place] [address] * (ABNORMAL) Comprehensive metabolic panel (non-fasting) (10/30/2023 10:05 PM EDT) Glucose 121 65 - 199 mg/dL [facility] Comment:Diabetes: >=200 mg/d L plus symptoms Blood Urea Nitrogen 14 8 - 18 mg/dL [facility] Creatinine 0.85 0.70 - 1.20 mg/dL [facility] Sodium 142 135 - 145 mmol/L [facility] Potassium 3.9 3.5 - 5.0 mmol/L [facility] Comment: Please note: ??Patients with WBC >100,000 may have falsely elevated Potassium levels. ??For accurate Potassium quantification in these patients send serum separator tube (gold top) for subsequent determinations. ??Contact the Clinical Chemistry Laboratory if there are any questions. Chloride 105 98 - 107 mmol/L [facility] Carbon Dioxide 27 22 - 31 mmol/L [facility] Anion Gap 10 5 - 15 mmol/L [facility] Calcium 8.8 8.5 - 10.5 mg/dL [facility] Protein, Total 6.5 6.1 - 8.0 g/dL [facility] Albumin 4.2 3.2 - 5.2 g/dL [facility] Aspartate Aminotransferase 36(H) 0 - 30 unit/L [facility] Alanine Aminotransferase 17 0 - 30 unit/L [facility] Alkaline Phosphatase 54 35 - 105 unit/L [facility] Bilirubin, Total 0.5 0.2 - 1.3 mg/dL [facility] Est Glomerular Filtration Rate 68 >=60 mL/min/1. 73 m?? [facility] Comment: This patient's estimated [...] MD CHEMISTRY ORDERABLE S Performing Organization Address City/[facility]/ZIP Co de Phone Number [facility] [place] [address] * Phosphorus (10/30/2023 10:05 PM EDT) Phosphorus 3.3 2.5 - 4.5 mg/dL [facility] Blood 10/30/2023 10:0 5 PM EDT 10/30/2023 10:12 PM EDT Narrative Resulting Agency Comment Spec In Lab Rosa Cornejo MD CHEMISTRY ORDERABLE S Performing Organization Address City/[facility]/ZIP Co de Phone Number [facility] [place] [address] * Magnesium (10/30/2023 10:05 PM EDT) Magnesium 0.86 0.69 - 1.07 mmol/L [facility] Blood 10/30/2023 10:0 5 PM EDT 10/30/2023 10:12 PM EDT Narrative Resulting Agency Comment Spec In Lab Rosa Cornejo MD CHEMISTRY ORDERABLE S Performing Organization Address City/[facility]/ZIP Co de Phone Number [facility] [place] [address] * (ABNORMAL) Troponin (10/30/2023 10:05 PM EDT) [facility] Troponin-T, High Sensitivity 214(H) <=14 ng/L [facility] Comment: This patient's troponin [...] troponin value can be found in the [facility] Test Catalog Troponin - [facility] Test Catalog Reference: Fourth [place] Definition of Myocardial Infarction. Journal of the [place] [employer] 2018;72:4640-5018 Blood 10/30/2023 10:0 5 PM EDT 10/30/2023 10:12 PM EDT Narrative Resulting Agency Comment Spec In Lab Rosa Cornejo MD CHEMISTRY ORDERABLE S [facility] [place] [address] * EKG 12 Lead (10/30/2023 8:21 PM EDT) [facility] Ventricular rate 49 BPM MUSE SYSTEM Atrial Rate 49 BPM MUSE SYSTEM P-R Interval 230 ms MUSE SYSTEM QRS Duration 96 ms MUSE SYSTEM Q-T Interval 526 ms MUSE SYSTEM QTC Calculated (Bezet) 475 ms MUSE SYSTEM Calculated P Hayward 98 degrees MUSE SYSTEM Calculated R [place] -48 degrees MUSE SYSTEM Calculated T [place] -51 degrees MUSE SYSTEM INTERPRETATION Sinus bradycardia with 1st degree A-V block Incomplete right bundle branch block Left anterior fascicular block Moderate voltage criteria for LVH, may be normal variant ( R in aVL , [place] product ) T wave abnormality, consider inferior [...] Provider: Mary Sweeney RN)1546 (Stopped - Provider: aMry Sweeney RN) clopidogreL (Plavix) tablet 75 mg [...] last 24 to 72 hours., Routine 1333 ([facility] Hold - Provider: Admin Adt - Reason: Transfer to a Procedural area)1548 ([facility] Unhold - Provider: Admin Adt) sodium chloride 0.9 % (flush) (BD PosiFlush Normal Saline 0.9) flush 5-20 mL 5-20 mL, Intravenous, EVERY 1 MIN PRN, Starting on 10/30/23 at 2208, Until Amna 11/03/23 at 1913, flush, Flush pertains to all indwelling lines. Flush per protocol found in the job aid using the link provided on this medication record., Routine 1333 ([facility] Hold - Provider: Admin Adt - Reason: Transfer to a Procedural area)1548 ([facility] Unhold - Provider: Admin Adt) documented in this encounter Additional Health Concerns Infection Onset Date Last Indicated Resolved Time Rule Out Respiratory 11/02/2023 11/02/2023 024 12:22 PM EDT Rule Out COVID-19 11/02/2023 11/02/2023 11/02/2023 12:22 PM EDT documented as of this encounter Care Teams Benefits Analyst Relationship Specialty Start Date End Date Rosie Mathews MD [address] [place] [address] PCP - General Family Medicine 11/25/17 11/23/23 documented as of this encounter
--- OUTSIDE RECORDS SUMMARY | 2024-02-22 10:40 | XMS_ITS | Encounter Summary ---
Author Organization [facility] [place] [address] Care Team Providers Care Medical Case Manager Name Role Phone Rosie Mathews MD Primary Care Provider [phone] Encounter Details Date Type Department Care Team (Late st Contact Info) Description 10/30/2023 [place] [address] Jose Lee MD [facility] [place] [address] Social History Tobacco Use Types Packs/Day Years [...] Date: 10/30/2023 Referring Provider: Bree Patient Location: [facility] HPI: 83 yoF w/ PMHx of [...] in the patient condition. Jose Lee MD [employer] documented in this encounter Plan of Treatment Upcoming Encounters Date Type Department Care Team (Late st Contact Info) Description 03/29/2024 11:20 AM EDT Office Visit Cardiology at [address] [place] [address] Izaiah Meyer MD [facility] [place] [address] documented as of this encounter Visit Diagnoses Not on filedocumented in this encounter Care Teams Medical Case Manager Relationship Specialty Start Date End Date Rosie Mathews MD [address] [place] [address] PCP - General Family Medicine 11/25/17 11/23/23 documented as of this encounter
--- OUTSIDE RECORDS SUMMARY | 2024-02-22 10:40 | XMS_ITS | Encounter Summary ---
Author Organization [facility] [place] [address] Care Team Providers Care Mannequin Wig Maker Name Role Phone Rosie Mathews MD Primary Care Provider [phone] Reason for Visit * Auth/Cert (Routine) Specialty Diagnoses / Procedures Referred By Contac t Referred To Contact Diagnoses Unstable angina Chest pain NSTEMI Procedures CARDIAC CATHETERIZATION Rosa Dewey MD [facility] [address] [place] [address] [facility] Referral ID Status Reason Start Date Expiration Date Visits Re quested Visits Authorized [id number] 1 1 Encounter Details Date Type Department Care Team (Late st Contact Info) Description 10/30/2023 4:25 PM EDT - 10/30/2023 5:27 PM EDT [place] [address] Rosa Dewey MD [facility] [address] [place], [place] [id number] CARDIAC CATHETERIZATION Social History Tobacco Use Types [...] for hypertension and hyperlipidemia who presented to [facility] as a transfer from [facility] as a possible STEMI alert with acute onset chest pain. The patient reports that her symptoms initially began on Tuesday when she was walking to [facility] and experienced bilateral arm heaviness while walking with no other symptoms. Then, this afternoon shereports developing bilateral achy shoulder pain and nonradiating substernal left-sided chest pressure that was 7/10 in severity after coming home from tao[place]. The patient denies any associated fevers, chills, diaphoresis, lightheadedness/dizziness, syncope/presyncope, dyspnea (either at rest or on exertion), palpitations, orthopnea, or PND. The patient subsequently presented to [facility] as a walk-in for [...] on repeat, her JAMIE resolved. Cardiology at [facility] was consulted for transfer; the patient was loaded with aspirin 324 mg and ticagrelor 180 mg, started on a heparin drip, and given nitroglycerin with improvement in chest pain. Upon arrival to [facility], the patient was taken directly to the Wheat Buyer. Two lesions were discovered: one in the prox RCA (felt to almost be a POOLROOM TABLE ATTENDANT but they were able to wire, balloon, [...] dose administered prior to arrival in the laboratory inspector. Recommended anti-platelet/anti-thrombotic regimen: Continue aspirin 81 mg [...] and low lung volumes. Findings similar to color television console monitor radiograph from CT 10/30/2023. Pending Studies and [...] 10:40 AM Izaiah Meyer MD Cardiology at [place] Arrive at: [facility] [address] [phone] Future Orders Complete By Expires Referral to Cardiac Rehab [[id number] Custom] As directed Process Instructions: If no [...] Adin Santos for admission to Home Health. [address] [place] [address] [place] [phone] (home) Date of : 1940 Inpatient DOCUMENTATION FOR VNA SERVICES (INCLUDING THOSE PATIENTS WITH MEDICARE COVERAGE REQUIRING HOME VNA SERVICES AND/OR HOSPICE SERVICES) PATIENT'S LOCATION: Adin Santos [address] [facility] [phone] (home) Cell: Telephone Information: Volleyball Coach's Name: self In discussion with the attending physician, it is certified that this patient is under their care and that they, or a Nurse Practitioner, Clinical Nurse specialist or Physician Night Guard who is working directly with them, had [...] regarding health issues HOME HEALTH CARE AGENCY: [facility] [address] [place] [address] START OF CARE: within 24-48 hours of [...] Rosie Mathews MD [address] / [facility] [address] . All A agencies which cover the [...] MD / Dr. Masood Pierson [address] [place] [address] 11/09/23 1:55 PM arrival for 2:10 PM appointment Stack Matcher: Izaiah Meyer MD [address] [place] [address] , 11/24/2023 10:40 AM Your Inpatient Medical Team at [facility] Name(s) of your inpatient provider(s): Attending physician: Rosa Hugo MD Resident physicians: Emile Robles MD; Elmer Tamez MD If you have non-emergent questions, prior to your follow-up visit call: Tuesday-Tuesday between the hours of 8AM-5PM please call the Cardiology Clinic [phone] to speak with a nurse. All other hours please call the Hospital Hogshead Mat Inspector [phone] and ask to speak to the autocad designer on-call. Your Primary Care Provider Rosie Mathews MD [phone] For questions regarding this document or issues relating to this hospitalization on the Medical Service, please contact your inpatient physician through the [facility] Hogshead Mat Inspector . Issues afterhours and on weekends will be handled by the Stack Matcher staff on-call. Associated attestation - Rosa Hugo [...] MD / Dr. Masood Pierson [address] [place] [address] 11/09/23 1:55 PM arrival for 2:10 PM appointment Stack Matcher: Izaiah Meyer MD [address] [place] [address] , 11/24/2023 10:40 AM Your Inpatient Medical Team at [facility] Name(s) of your inpatient provider(s): Attending physician: Rosa Hugo MD Resident physicians: Emile Robles MD; Elmer Tamez MD If you have non-emergent questions, prior to your follow-up visit call: Tuesday-Tuesday between the hours of 8AM-5PM please call the Cardiology Clinic [phone] to speak with a nurse. All other hours please call the Hospital Hogshead Mat Inspector [phone] and ask to speak to the autocad designer on-call. Your Primary Care Provider Rosie Mathews MD [phone] documented in this encounter Medications at Time [...] for hypertension and hyperlipidemia who presented to [facility] as a transfer from [facility] as a possible STEMI [...] for hypertension and hyperlipidemia who presented to [facility] as a transfer from [facility] as a possible STEMI [...] Resident on Cardiology Service Cardiology S1 (Pager [phone]) Note written in conjunction with Claudio Perla [facility] Medical Student, MS3 Associated attestation [...] Nirmala Webb - 11/01/2023 11:25 AM EDT Location And Measurement Technician Encounter Note Patient Name: Adin Santos : [id number] MR#: [id number] Admit Date: 10/30/2023 5:11 PM Hospital Day 2 days Narrative: Self initiated visit to patient for Spiritual support in a regular unit rounds. Assessment: Patient is in the bathroom at the time of this visit. Not a good time for Gambling Floor Supervisor visit. Intervention and Outcome: An attempted [...] for hypertension and hyperlipidemia who presented to [facility] as a transfer from [facility] as a possible STEMI [...] and low lung volumes. Findings similar to color television console monitor radiograph from CT 10/30/2023. Scheduled Medications: [MAR [...] for hypertension and hyperlipidemia who presented to [facility] as a transfer from [facility] as a possible STEMI [...] Resident on Cardiology Service Cardiology S1 (Pager [phone]) Note written in conjunction with Claudio Perla [facility] Medical Student, MS3 Associated attestation [...] for hypertension and hyperlipidemia who presented to [facility] as a transfer from [facility] as a possible STEMI alert with acute onset chest pain. Active Problems: Active Hospital Problems Diagnosis Unstable angina Resolved Hospital Problems No resolved problems to display. 24 hr events: - Cath'd yesterday with lesion in the proximal RCA (initially thought it was POOLROOM TABLE ATTENDANT but they were ableto wire, balloon and [...] and low lung volumes. Findings similar to color television console monitor radiograph from CT 10/30/2023. TTE (10/30): Interpretation [...] for hypertension and hyperlipidemia who presented to [facility] as a transfer from [facility] as a possible STEMI [...] Resident on Cardiology Service Cardiology S1 (Pager [phone]) Note written in conjunction with Claudio Perla [facility] Medical Student, MS3 Associated attestation [...] PCP: Rosie Mathews MD PCP phone number: [phone] Date of Admission: 10/30/2023 ( Hospital Day 0 days ) Attending:Rosa Cornejo MD ID: Adin Santos is a 83 y.o. female PMH significant for hypertension and hyperlipidemia who presented to [facility] as a transfer from [facility] as a possible STEMI alert with acute onset chest pain. The patient reports that her symptoms initially began on Tuesday when she was walking to [facility] and experienced bilateral arm heaviness while walking with no other symptoms. Then, this afternoon shereports developing bilateral achy shoulder pain and nonradiating substernal left-sided chest pressure that was 7/10 in severity after coming home from taoism. The patient denies any associated fevers, chills, diaphoresis, lightheadedness/dizziness, syncope/presyncope, dyspnea (either at rest or on exertion), palpitations, orthopnea, or PND. The patient subsequently presented to [facility] as a walk-in for [...] on repeat, her JAMIE resolved. Cardiology at [facility] was consulted for transfer; the patient was loaded with aspirin 324 mg and ticagrelor 180 mg, started on a heparin drip, and given nitroglycerin with improvement in chest pain. Upon arrival to [facility], the patient was taken directly to the Wheat Buyer. Two lesions were discovered: one in the prox RCA (felt to almost be a POOLROOM TABLE ATTENDANT but they were able to wire, balloon, [...] and low lung volumes. Findings similar to color television console monitor radiograph from CT 10/30/2023. Assessment & Plan: Adin Santos is a 83 y.o. female PMH significant for hypertension and hyperlipidemia who presented to [facility] as a transfer from [facility] as a possible STEMI [...] information for follow-up [facility], [place] [address] TANESHA BOYCE confirmed with Brittany CARVAJAL that [...] in the room. Electrolytes replaced, see MAR. minilab operator sites remained C/D/I with baseline ecchymosis unchanged. Pt complained of back pain, lidocaine patch given. Right IV infiltrated during infusion, patient is marked with sharpie, IV removed. See flowsheet for I+O's and safety rounding. Patient is able to make needs known and call capps within reach. PLAN MOVING FORWARD: Monitor Tele, control BP, monitor laboratory inspector sites, D/C Planning INDIVIDUALIZED FALL PREVENTION INTERVENTIONS: [...] and above on RA. PT went to laboratory inspector today. Left fem site oozed throughout shift, [...] MOVING FORWARD: Monitor Tele, control BP, monitor laboratory inspector sites, D/C Planning INDIVIDUALIZED FALL PREVENTION INTERVENTIONS: [...] surrogate would be surrogate decision maker per [place] decision making law. (Only good for 180 days) Any patient receiving care in [place] must abide by [place] law. The hierarchy for surrogate decision making [...] (i) The agent with financial power of energy attorney or a conservator appointed in accordance [...] has the electric, gas, oil, or water [employer] threatened to shut off services in your [...] toilet seat Home Address confirmed as: [address] [facility] [address] Social & Family Supports: All names listed below confirmed with patient as current and correct Extended Emergency Contact Information Primary Emergency Contact: Iris Downing Address: [address] [place], [place] [address] [place] [address] Mobile Relation: Child Secondary Emergency Contact: Karen More Address: [address] [facility] Mobile Relation: Child Current Care Provided by: self Provides Primary Care For: no one Caregiver if needed: child(emmanuel), adult Quality of Family relationships: involved, supportive Community Resources being provided currently: other (see comments) (receives [facility] services at home (1xweekly)) [...] Insurance: N/A Prescription Coverage: Yes Preferred Pharmacy: [facility] [place], [place] - [address] [place] [address] [place] [address] [place] Status: Patient is a : No Primary Care Provider listed: Masood Pierson MD [phone] Patient/Caregiver Goals of Treatment: home when MR Potential Needs for Transition of Care: home health care Agency Referrals: Not Applicable I have met with the patient to: discuss discharge planning needs. provide the [facility], Office of Care Management letter from the Lock Setter pertaining to rehab referrals. provide a letter describing our affiliations within the [facility] and educate about their right to choose where referrals are sent. provide a list of Home Health Agencies / Durable Medical Equipment vendors which serve their preferred geographic area. provided patient with CMS Star Quality Rating handout. They have requested referrals to: [facility] [address] [place] [address] Note routed to a Commodity Lead who will communicate referrals to facilities and [...] results. PO hydralazine added for BP control. minilab operator sites remain C/D/I, ecchymosis unchanged th roughout shift. See flowsheet for I+O's and safety rounding. Patient is able to make needs known and call capps within reach. PLAN MOVING FORWARD: Monitor Tele, control CP and BP, NPO at MD for cath, monitor laboratory inspector sites, D/C Planning INDIVIDUALIZED FALL PREVENTION INTERVENTIONS: [...] 11:20 AM EDT Office Visit Cardiology at [address] [address] Izaiah Meyer MD [facility] [address] Scheduled Referrals Name Type Priority Associated Diagnoses [...] Absolute 5.28 1.70 - 6.10 x10(3)/mc L [facility] Lymph % 15.2 % [facility] Lymphocytes Abs 1.3 0.9 - 3.2 x10(3)/mc L [facility] Monocyte % 16.9 % [facility] Monocyte Abs 1.4(H) 0.3 - 0.9 x10(3)/mc L [facility] Eos % 3.7 % [facility] Eosinophils Abs 0.3 0.0 - 0.4 x10(3)/mc L [facility] Basophil % 0.5 % [facility] Baso Absolute 0.0 0.0 - 0.1 x10(3)/mc L [facility] Immature Gran % 0.40 % [facility] Comment: Immature granulocytes(IG's)percentage and absolute count will include metamyelocytes, myelocytes, and promyelocytes. Blood smears from CBCs yielding IG's will be scanned manually for concordance. If this scan disagrees with the automated IG or if promyelocytes are noted, a manual differential will be performed. Immature Gran Absolute 0.03 0.00 - 0.04 x10(3)/mc L [facility] Blood 11/03/2023 3:46 AM EDT 11/03/2023 4:11 AM EDT Narrative Resulting Agency Comment Spec In Lab Qamar Gallardo MD HEMATOLOGY ORDERABLE S [facility] [place] [address] * (ABNORMAL) Hemogram (11/03/2023 3:46 AM EDT) White Blood Cell 8.3 4.0 - 9.5 x10(3)/[facility] Red Blood Cell 3.77(L) 4.00 - 5.21 x10(6)/[facility] Hemoglobin 13.1 11.7 - 15.5 g/dL [facility] Hematocrit 38.0 35.7 - 45.8 % [facility] Mean Cell Volume 100.8(H) 82.6 - 94.4 fL [facility] Mean Cell Hemoglobin 34.7(H) 27.1 - 32.0 pg [facility] Mean Cell Hemoglobin Concentration 34.5 31.7 - 35.0 g/dL [facility] Platelet 181 145 - 357 x10(3)/ L [facility] RDW Standard Deviation 54.7(H) 37.0 - 46.0 [facility] RDW coefficient of variation 14.6(H) 11.5 - 14.1 % [facility] Mean Platelet Volume 11.2 7.6 - 12.9 [facility] NRBC% auto 0.0 % [facility] NRBC Absolute 0.000 0.000 - 0.000 x10(3)/ L [facility] Blood 11/03/2023 3:46 AM EDT 11/03/2023 4:11 AM EDT Narrative Resulting Agency Comment Spec In Lab Qamar Gallardo MD HEMATOLOGY ORDERABLE S Performing Organization Address City/[facility]/ZIP Co de Phone Number [facility] [place] [address] * Phosphorus (11/03/2023 3:46 AM EDT) Phosphorus 3.2 2.5 - 4.5 mg/dL [facility] Comment:result rechecked-KS Blood 11/03/2023 3:46 AM EDT 11/03/2023 4:11 AM EDT Narrative Resulting Agency Comment Spec In Lab Rosa Cornejo MD CHEMISTRY ORDERABLE S Performing Organization Address [facility]/ZIP Co de Phone Number [facility] [place] [address] * Magnesium (11/03/2023 3:46 AM EDT) Magnesium 0.90 0.69 - 1.07 mmol/L [facility] Blood 11/03/2023 3:46 AM EDT 11/03/2023 4:11 AM EDT Narrative Resulting Agency Comment Spec In Lab Rosa Cornejo MD CHEMISTRY ORDERABLE S Performing Organization Address City/[facility]/ZIP Co de Phone Number [facility] [place] [address] * (ABNORMAL) Basic Metabolic Panel (non-fasting) (11/03/2023 3:46 AM EDT) Glucose 105 65 - 199 mg/dL [facility] Comment:Diabetes: >=200 mg/d L plus symptoms Blood Urea Nitrogen 13 8 - 18 mg/dL [facility] Creatinine 0.83 0.70 - 1.20 mg/dL [facility] Sodium 139 135 - 145 mmol/L [facility] Potassium 4.0 3.5 - 5.0 mmol/L [facility] Comment: Please note: ??Patients with WBC >100,000 may have falsely elevated Potassium levels. ??For accurate Potassium quantification in these patients send serum separator tube (gold top) for subsequent determinations. ??Contact the Clinical Chemistry Laboratory if there are any questions. Chloride 108(H) 98 - 107 mmol/L [facility] Carbon Dioxide 19(L) 22 - 31 mmol/L [facility] Anion Gap 12 5 - 15 mmol/L [facility] Calcium 8.2(L) 8.5 - 10.5 mg/dL [facility] Est Glomerular Filtration Rate 69 >=60 mL/min/1. 73 m?? [facility] Comment: This patient's estimated GFR [...] Lab Rosa Cornejo MD CHEMISTRY ORDERABLE S [facility] [place] [address] * EKG 12 Lead (11/02/2023 12:44 PM EDT) Ventricular rate 83 BPM MUSE SYSTEM Atrial Rate 83 BPM MUSE SYSTEM P-R Interval 216 ms MUSE SYSTEM QRS Duration 90 ms MUSE SYSTEM Q-T Interval 384 ms MUSE SYSTEM QTC Calculated (Bezet) 451 ms MUSE SYSTEM Calculated P [place] 92 degrees MUSE SYSTEM Calculated R [place] -51 degrees MUSE SYSTEM Calculated T [place] -33 degrees MUSE SYSTEM INTERPRETATION Sinus rhythm with 1st degree A-V block with Premature atrial complexes Left axis deviation Moderate voltage criteria for LVH, may be normal variant ( R in aVL , Ifeanyi product ) Anterolatera l infarct (cited on or before 01-NOV-2023) Abnormal ECG When compared with ECG of 01-NOV-2023 22:10, Premature atrial complexes are now Present [place] interval has increased Vent. rate has decreased [...] specimen volume Bacteria, Urine Many(A) None /HPF [facility] Squamous Epithelial Cells Raw Data, Urine 10(H) <=4 /HPF [facility] Hyaline Casts, Urine 2 0 - 2 /LPF [facility] Comment: Interpret results with caution, microscopic results are from suboptimal specimen volume Clean Catch Urine 11/02/2023 11:40 AM EDT 11/02/2023 12:05 PM EDT Narrative Resulting Agency Comment Spec In Lab Elmer Tamez MD URINE ORDERABLES [facility] [place] [address] * (ABNORMAL) Urinalysis with reflex Culture (11/02/2023 11:40 AM EDT) Glucose, Urine Dipstick Negative Negative mg/dL [facility] Protein, Urine Dipstick 30(A) Negative mg/dL [facility] Bilirubin, Urine Dipstick Negative Negative mg/dL [facility] Comment: Clinical correlation required for positive Urine Bilirubin results as false positive may occur with some drugs and drug related products. If a false positive is suspected a serum total bilirubin should be considered if clinically indicated. Urobilinogen, Urine Dipstick Normal Normal mg/dL [facility] pH, Urn (dipstick) 5.5 5.0 - 8.0 [facility] Blood, Urine Dipstick Negative Negative mg/dL [facility] Ketone, Urine Dipstick Trace(A) Negative mg/dL [facility] Nitrite, Urine Dipstick Positive(A) Negative [facility] Leukocytes, Urine Dipstick Small(A) Negative [facility] Appearance, Urine Dipstick Cloudy(A) Clear [facility] Specific [place] Urine Automated >=1.030(A) 1.005 - 1.030 [facility] Color, Urine Dipstick Dark Yellow Yellow [facility] Reflex to Culture Yes [facility] Clean Catch Urine 11/02/2023 11:40 AM EDT 11/02/2023 12:04 PM EDT Narrative Resulting Agency Comment Spec In Lab Rosa Hugo MD URINE ORDERABLES [facility] [place] [address] * Respiratory Panel PCR (11/02/2023 10:15 AM EDT) Respiratory Panel Source COMMISSIONING EDITOR Swab [facility] Respiratory Panel PCR Negative Negative [facility] Comment: Respiratory Panels are performed on the [employer], using multiplexed PCR nucleic acid detection. ??Negative results do not preclude respiratory infection and should not be used as the sole basis for diagnosis, treatment or other management decisions. Adenovirus Not Detected Not Detected [facility] Coronavirus HKU1 Not Detected Not Detected [facility] Coronavirus NL63 Not Detected Not Detected [facility] Coronavirus 229E Not Detected Not Detected [facility] Coronavirus OC43 Not Detected Not Detected [facility] SARS-CoV-2 Not Detected Not Detected [facility] Comment: Testing for SARS-CoV-2 (Severe acute respiratory syndrome coronavirus 2) to aid in the diagnosis of COVID-19 is performed using the Bio[employer] Respiratory Panel 2.1 ([employer]) as authorized by the FDA issued Emergency Use Authorization (EUA). This panel also tests for multiple other viral and bacterial pathogens. This assay is intended for In-vitro Diagnostic (IVD) use with nasopharyngeal swabs in viral transport media. The assay is performed based on the instructions for use and additional guidance provided by the FDA. Testing is performed in laboratories within the [facility], each of which is certified under [...] fact sheets at the following FDA website: https://www.fda.gov/medical-devices/slsdatedcik-scgggqh-0412-kaxtj-20-ekcdwaxti- use-a niuwuuncaahkc-kgxnsux-qodxziq/hmhha-znqlrkkfqoz-onxg Human Metapneumovirus Not Detected Not Detected [facility] Human Rhinovirus/Enterov irus Not Detected Not Detected [facility] Influenza A Not Detected Not Detected [facility] Influenza B Not Detected Not Detected [facility] Parainfluenza 1 Not Detected Not Detected [facility] Parainfluenza 2 Not Detected Not Detected [facility] Parainfluenza 3 Not Detected Not Detected [facility] Parainfluenza 4 Not Detected Not Detected [facility] Respiratory Syncytial Virus Not Detected Not Detected [facility] Chlamydophila pneumoniae Not Detected Not Detected [facility] LABORATORY Mycoplasma pneumoniae Not Detected Not Detected [facility] Nasopharyngeal Swab 11/02/19 10:15 AM EDT 11/02/2023 10:49 AM EDT Narrative Resulting Agency Comment Spec In Lab Rosa Hugo MD MICROBIOLOGY - GEN ERAL ORDERABLES [facility] [place] [place] [address] * XR Chest One View (11/02/2023 2:51 AM EDT) WORKSTATION ID [id number] DH RAD Anatomical Region Laterality Modality Chest [...] who have questions please contact the health career development consultant that requested your imaging first. ? Electronically signed by: Omaira Tran MD, [facility] ([phone]), at 11/02/2023 4:56 AM Narrative 11/02/2023 4:56 [...] patients who have questions please contactthe health career development consultant that requested your imaging first. Electronically signed by: Omaira Tran MD, [facility]([phone]), at 11/02/2023 4:56 AM Rosa Hugo MD IMG DX ORDERABLES * (ABNORMAL) Differential, Automated (11/02/2023 12:35 AM EDT) Neutrophil % 76.5 % [facility] Neutrophil Absolute 7.69(H) 1.70 - 6.10 x10(3)/mc L [facility] Lymph % 8.3 % [facility] Lymphocytes Abs 0.8(L) 0.9 - 3.2 x10(3)/mc L [facility] Monocyte % 12.9 % [facility] Monocyte Abs 1.3(H) 0.3 - 0.9 x10(3)/mc L [facility] Eos % 1.4 % [facility] Eosinophils Abs 0.1 0.0 - 0.4 x10(3)/mc L [facility] Basophil % 0.4 % [facility] Baso Absolute 0.0 0.0 - 0.1 x10(3)/mc L [facility] Immature Gran % 0.50 % [facility] Comment: Immature granulocytes(IG's)percentage and absolute count will include metamyelocytes, myelocytes, and promyelocytes. Blood smears from CBCs yielding IG's will be scanned manually for concordance. If this scan disagrees with the automated IG or if promyelocytes are noted, a manual differential will be performed. Immature Gran Absolute 0.05(H) 0.00 - 0.04 x10(3)/ L [facility] Blood 11/02/2023 12:3 5 AM EDT 11/02/2023 12:43 AM EDT Narrative Resulting Agency Comment Spec In Lab Qamar Gallardo MD HEMATOLOGY ORDERABLE S [facility] [place] [address] * (ABNORMAL) Hemogram (11/02/2023 12:35 AM EDT) White Blood Cell 10.0(H) 4.0 - 9.5 x10(3)/mc L [facility] Red Blood Cell 4.06 4.00 - 5.21 x10(6)/mc L [facility] Hemoglobin 13.8 11.7 - 15.5 g/dL [facility] Hematocrit 39.8 35.7 - 45.8 % [facility] Mean Cell Volume 98.0(H) 82.6 - 94.4 fL [facility] Mean Cell Hemoglobin 34.0(H) 27.1 - 32.0 pg [facility] Mean Cell Hemoglobin Concentration 34.7 31.7 - 35.0 g/dL [facility] Platelet 198 145 - 357 x10(3)/mc L [facility] RDW Standard Deviation 52.1(H) 37.0 - 46.0 fL [facility] RDW coefficient of variation 14.3(H) 11.5 - 14.1 % [facility] Mean Platelet Volume 11.4 7.6 - 12.9 fL [facility] NRBC% auto 0.0 % [facility] NRBC Absolute 0.000 0.000 - 0.000 x10(3)/mc L [facility] Blood 11/02/2023 12:3 5 AM EDT 11/02/2023 12:43 AM EDT Narrative Resulting Agency Comment Spec In Lab Qamar Gallardo MD HEMATOLOGY ORDERABLE S [facility] [place] [address] * (ABNORMAL) Phosphorus (11/02/2023 12:35 AM EDT) Phosphorus 1.6(L) 2.5 - 4.5 mg/dL [facility] Blood 11/02/2023 12:3 5 AM EDT 11/02/2023 12:43 AM EDT Narrative Resulting Agency Comment Spec In Lab Rosa Cornejo MD CHEMISTRY ORDERABLE S Performing Organization Address [facility]/ZIP Co de Phone Number [facility] [place] [address] * Magnesium (11/02/2023 12:35 AM EDT) Magnesium 0.87 0.69 - 1.07 mmol/L [facility] Blood 11/02/2023 12:3 5 AM EDT 11/02/2023 12:43 AM EDT Narrative Resulting Agency Comment Spec In Lab Rosa Cornejo MD CHEMISTRY ORDERABLE S Performing Organization Address City/[facility]/ZIP Co de Phone Number [facility] [place] [address] * Basic Metabolic Panel (non-fasting) (11/02/2023 12:35 AM EDT) Glucose 125 65 - 199 mg/dL [facility] Comment:Diabetes: >=200 mg/d L plus symptoms Blood Urea Nitrogen 9 8 - 18 mg/dL [facility] Creatinine 0.83 0.70 - 1.20 mg/dL [facility] Sodium 136 135 - 145 mmol/L [facility] Potassium 3.6 3.5 - 5.0 mmol/L [facility] Comment: Please note: ??Patients with WBC >100,000 may have falsely elevated Potassium levels. ??For accurate Potassium quantification in these patients send serum separator tube (gold top) for subsequent determinations. ??Contact the Clinical Chemistry Laboratory if there are any questions. Chloride 102 98 - 107 mmol/L [facility] Carbon Dioxide 25 22 - 31 mmol/L [facility] Anion Gap 9 5 - 15 mmol/L [facility] Calcium 9.0 8.5 - 10.5 mg/dL [facility] Est Glomerular Filtration Rate 69 >=60 mL/min/1. 73 m?? [facility] Comment: This patient's estimated GFR [...] Lab Rosa Cornejo MD CHEMISTRY ORDERABLE S [facility] [place] [address] * Blood culture (11/02/2023 12:35 AM EDT) Blood Culture No growth at 5 days. [facility] Blood 11/02/2023 12:3 5 AM EDT 11/02/2023 1:55 AM EDT Comment:#2 site ukn Narrative Resulting Agency Comment Spec In Lab Rosa Hugo MD MICROBIOLOGY - BLO OD ORDERABLES Performing Organization Address [facility] Co de Phone Number [facility] [place] [address] * Blood culture (11/02/2023 12:15 AM EDT) Blood Culture No growth at 5 days. [facility] Blood 11/02/2023 12:1 5 AM EDT 11/02/2023 1:54 AM EDT Comment:#1site unk Narrative Resulting Agency Comment Spec In Lab Rosa Hugo MD MICROBIOLOGY - BLO OD ORDERABLES Performing Organization Address [facility] Co de Phone Number [facility] [place] [address] * EKG 12 Lead (11/01/2023 10:10 PM EDT) Ventricular rate 139 BPM MUSE SYSTEM Atrial Rate 139 BPM MUSE SYSTEM P-R Interval 168 ms MUSE SYSTEM QRS Duration 84 ms MUSE SYSTEM Q-T Interval 286 ms MUSE SYSTEM QTC Calculated (Bezet) 435 ms MUSE SYSTEM Calculated R [place] -59 degrees MUSE SYSTEM Calculated T [place] -27 degrees MUSE SYSTEM INTERPRETATION Mid-RP tachycardia, [...] interpretation Confirmed by fellow MD Bowen Ashley ([id number]) on 11/04/2023 7:57:50 AM Confirmed by MD Carrillo Danette ([id number]) on 11/04/2023 4:32:03 PM MUSE SYSTEM 11/01/2023 10:1 0 PM EDT 11/04/2023 4:32 PM EDT Rosa Cornejo MD ECG ORDERABLES MUSE SYSTEM * (ABNORMAL) Hemogram (11/01/2023 10:06 PM EDT) White Blood Cell 10.4(H) 4.0 - 9.5 x10(3)/[facility] Red Blood Cell 4.11 4.00 - 5.21 x10(6)/[facility] Hemoglobin 14.0 11.7 - 15.5 g/dL [facility] Hematocrit 41.1 35.7 - 45.8 % [facility] Mean Cell Volume 100.0(H) 82.6 - 94.4 fL [facility] Mean Cell Hemoglobin 34.1(H) 27.1 - 32.0 pg [facility] Mean Cell Hemoglobin Concentration 34.1 31.7 - 35.0 g/dL [facility] Platelet 197 145 - 357 x10(3)/ L [facility] RDW Standard Deviation 54.0(H) 37.0 - 46.0 fL [facility] RDW coefficient of variation 14.6(H) 11.5 - 14.1 % [facility] Mean Platelet Volume 11.2 7.6 - 12.9 fL [facility] NRBC% auto 0.0 % [facility] NRBC Absolute 0.000 0.000 - 0.000 x10(3)/ L [facility] Blood 11/01/2023 10:0 6 PM EDT 11/01/2023 10:22 PM EDT Narrative Resulting Agency Comment Spec In Lab Rosa Hugo MD HEMATOLOGY ORDERAB LES Performing Organization Address City/[facility]/ZIP Co de Phone Number [facility] [place] [address] * POCT Glucose (11/01/2023 5:59 PM EDT) [facility] Signature Glucose, POC 104 65 - 199 mg/dL [facility] Comment: Supplemental ranges: <140 mg/dL before meals <180 mg/dL all other times of the day Blood 11/01/2023 5:59 PM EDT 11/01/2023 5:59 PM EDT Rosa Hugo MD POINT OF CARE TEST ORDERABLES Performing Organization Address [facility] Co de Phone Number [facility] [place] [address] * POCT Glucose (11/01/2023 5:35 PM EDT) [facility] Glucose, POC 85 65 - 199 mg/dL [facility] Comment: Supplemental ranges: <140 mg/dL before meals <180 mg/dL all other times of the day Blood 11/01/2023 5:35 PM EDT 11/01/2023 5:35 PM EDT Rosa Hugo MD POINT OF CARE TEST ORDERABLES Performing Organization Address City/[facility] Co de Phone Number [facility] [place] [address] * EKG 12 Lead (11/01/2023 3:22 PM EDT) Ventricular rate 59 BPM MUSE SYSTEM Atrial Rate 59 BPM MUSE SYSTEM P-R Interval 220 ms MUSE SYSTEM QRS Duration 94 ms MUSE SYSTEM Q-T Interval 428 ms MUSE SYSTEM QTC Calculated (Bezet) 423 ms MUSE SYSTEM Calculated P [place] 76 degrees MUSE SYSTEM Calculated R [place] -50 degrees MUSE SYSTEM Calculated T [place] -59 degrees MUSE SYSTEM INTERPRETATION Sinus bradycardia [...] Modality Other Narrative 11/02/2023 4:57 PM EDT ?[facility] ? Cardiac Catheterization/Intervention Report ? Patient Name: Adin Santos ? Procedure Date: 11/01/2023 ? A #: [id number] ? Primary Physician: Rosa Dewey I ? Case #: [id number] ? File Name: [id number] ? Catheterization Order Number: [id number] ? [facility] ? Final Report [place], [place] ? Patient Name: ? Adin M. Goguen ?ID#: ?[id number] ? : ?1940 ? Procedure Date: ? [...] procedure was Urgent. The indication for ?the laboratory inspector visit is ACS greater than 24 hrs. [...] ??A premounted ? 3.50 x 15 mm [place] (RADHA) was deployed with a maximum [...] A premounted 3.50 x 15 mm [place] (RADHA) was deployed ? with a [...] dose administered prior to arrival in the laboratory inspector. ?Recommended anti-platelet/anti-thrombotic regimen: ?Continue aspirin 81 mg daily for indefinitely. ?Continue clopidogrel 75 mg daily for 12 months then stop. ?These recommendations are made at the time of the intervention. Patient ?and provider preferences or a changing clinical situation may require ?modification of this regimen. Consult [facility] for ?questions. ?The 1 year [...] Ammended: 12/12/2023 ??10:28 ? Procedure Note Rosa Dewye MD - 12/12/2023 [facility] Cardiac Catheterization/Intervention Report Patient Name: Adin Santos Procedure Date: 11/01/2023 A #: [id number] Primary Physician: Rosa Dewey I Case #: [id number] File Name: [id number] Catheterization Order Number: [id number] [facility] FinalReport [place], [place] Patient Name: Adin Santos ID#:[id number] :1940 Procedure Date: November 01, 2023 Case [...] was designated as ASA Class III. [facility]: Vulnerable. Diagnostic Tests: Prior Coronary Angiography: LV ejection fraction within 6 months is 65%. Electrocardiography: EKG was assessed by ECG. EKG was Abnormal. EKG showed other abnormality. Medications Prior to Procedure: Aspirin, Angiotensin II Receptor Rodrick and Statin. Indications for Diagnostic Cath: The priority of the diagnostic procedure was Urgent. The indicationfor the laboratory inspector visit is ACS greater than 24 hrs. [...] atmospheres. Apremounted 3.50 x 15 mm [place] (RADHA) was deployed with amaximum inflation [...] The lesion was predilated with a 3.00mm [id number] MM balloon with a maximum inflation pressure of 14atmospheres. A premounted 3.50 x 15 mm [place] (RADHA) wasdeployed with a maximum inflation [...] dose administered prior to arrival in the laboratory inspector. Recommended anti-platelet/anti-thrombotic regimen: Continue aspirin 81 mg daily for indefinitely. Continue clopidogrel 75 mg daily for 12 months then stop. These recommendations are made at the time of the intervention.Patient and provider preferences or a changing clinical situation mayrequire modification of this regimen. Consult [facility] Interventional Cardiologyfor questions. The 1 year bleeding [...] * POCT Glucose (11/01/2023 7:06 AM EDT) [facility] Glucose, POC 93 65 - 199 mg/dL [facility] Comment: Supplemental ranges: <140 mg/dL before meals <180 mg/dL all other times of the day Blood 11/01/2023 7:06 AM EDT 11/01/2023 7:06 AM EDT Jean Laboy MD POINT OF CARE TEST O RDERABLES [facility] [place] [address] * (ABNORMAL) Differential, Automated (11/01/2023 3:09 AM EDT) Pathologist [facility] Neutrophil % 63.9 % [facility] Neutrophil Absolute 5.54 1.70 - 6.10 x10(3)/mc L [facility] Lymph % 20.0 % [facility] Lymphocytes Abs 1.7 0.9 - 3.2 x10(3)/mc L [facility] Monocyte % 11.9 % [facility] Monocyte Abs 1.0(H) 0.3 - 0.9 x10(3)/mc L [facility] Eos % 3.2 % [facility] Eosinophils Abs 0.3 0.0 - 0.4 x10(3)/ L [facility] Basophil % 0.5 % [facility] Baso Absolute 0.0 0.0 - 0.1 x10(3)/ L [facility] Immature Gran % 0.50 % [facility] Comment: Immature granulocytes(IG's)percentage and absolute count will include metamyelocytes, myelocytes, and promyelocytes. Blood smears from CBCs yielding IG's will be scanned manually for concordance. If this scan disagrees with the automated IG or if promyelocytes are noted, a manual differential will be performed. Immature Gran Absolute 0.04 0.00 - 0.04 x10(3)/ L [facility] Blood 11/01/2023 3:09 AM EDT 11/01/2023 3:29 AM EDT Narrative Resulting Agency Comment Spec In Lab Qamar Gallardo MD HEMATOLOGY ORDERABLE S Performing Organization Address City/State/[facility] Co de Phone Number [facility] [place] [address] * (ABNORMAL) Hemogram (11/01/2023 3:09 AM EDT) White Blood Cell 8.7 4.0 - 9.5 x10(3)/ L [facility] Red Blood Cell 3.72(L) 4.00 - 5.21 x10(6)/mc L [facility] Hemoglobin 12.5 11.7 - 15.5 g/dL [facility] Hematocrit 36.8 35.7 - 45.8 % [facility] Mean Cell Volume 98.9(H) 82.6 - 94.4 fL [facility] Mean Cell Hemoglobin 33.6(H) 27.1 - 32.0 pg [facility] Mean Cell Hemoglobin Concentration 34.0 31.7 - 35.0 g/dL [facility] Platelet 184 145 - 357 x10(3)/mc L [facility] RDW Standard Deviation 53.5(H) 37.0 - 46.0 fL [facility] RDW coefficient of variation 14.6(H) 11.5 - 14.1 % [facility] Mean Platelet Volume 11.3 7.6 - 12.9 fL [facility] NRBC% auto 0.0 % [facility] NRBC Absolute 0.000 0.000 - 0.000 x10(3)/mc L [facility] Blood 11/01/2023 3:09 AM EDT 11/01/2023 3:29 AM EDT Narrative Resulting Agency Comment Spec In Lab Qamar Gallardo MD HEMATOLOGY ORDERABLE S Performing Organization Address City/[facility]/ZIP Co de Phone Number [facility] [place] [address] * Phosphorus (11/01/2023 3:09 AM EDT) Phosphorus 2.5 2.5 - 4.5 mg/dL [facility] Blood 11/01/2023 3:09 AM EDT 11/01/2023 3:29 AM EDT Narrative Resulting Agency Comment Spec In Lab Rosa Cornejo MD CHEMISTRY ORDERABLE S Performing Organization Address City/[facility]/ZIP Co de Phone Number [facility] [place] [address] * Magnesium (11/01/2023 3:09 AM EDT) Magnesium 0.82 0.69 - 1.07 mmol/L [facility] Blood 11/01/2023 3:09 AM EDT 11/01/2023 3:29 AM EDT Narrative Resulting Agency Comment Spec In Lab Rosa Cornejo MD CHEMISTRY ORDERABLE S [facility] [place] [address] * (ABNORMAL) Basic Metabolic Panel (non-fasting) (11/01/2023 3:09 AM EDT) Glucose 100 65 - 199 mg/dL [facility] Comment:Diabetes: >=200 mg/d L plus symptoms Blood Urea Nitrogen 14 8 - 18 mg/dL [facility] Creatinine 0.83 0.70 - 1.20 mg/dL [facility] Sodium 137 135 - 145 mmol/L [facility] Potassium 3.4(L) 3.5 - 5.0 mmol/L [facility] Comment: Please note: ??Patients with WBC >100,000 may have falsely elevated Potassium levels. ??For accurate Potassium quantification in these patients send serum separator tube (gold top) for subsequent determinations. ??Contact the Clinical Chemistry Laboratory if there are any questions. Chloride 105 98 - 107 mmol/L [facility] Carbon Dioxide 24 22 - 31 mmol/L [facility] Anion Gap 8 5 - 15 mmol/L [facility] Calcium 8.6 8.5 - 10.5 mg/dL [facility] Est Glomerular Filtration Rate 69 >=60 mL/min/1. 73 m?? [facility] Comment: This patient's estimated GFR [...] Lab Rosa Cornejo MD CHEMISTRY ORDERABLE S [facility] [place] [address] * (ABNORMAL) Troponin (10/31/2023 2:46 PM EDT) Troponin-T, High Sensitivity 544(H) <=14 ng/L [facility] Comment: This patient's troponin T [...] [facility] Test Catalog Reference: Fourth Minford Definition of Myocardial Infarction. Journal of the [place] 2018;72:6373-7188 Blood 10/31/2023 2:46 PM EDT 10/31/2023 2:55 PM EDT Narrative Resulting Agency Comment Spec In Lab Jean Laboy MD CHEMISTRY ORDERABLES Performing Organization Address [facility] Co de Phone Number [facility] [place] [address] * EKG 12 Lead (10/31/2023 1:07 PM EDT) Ventricular rate 54 BPM MUSE SYSTEM Atrial Rate 54 BPM MUSE SYSTEM P-R Interval 218 ms MUSE SYSTEM QRS Duration 92 ms MUSE SYSTEM Q-T Interval 540 ms MUSE SYSTEM QTC Calculated (Bezet) 512 ms MUSE SYSTEM Calculated P [place] 85 degrees MUSE SYSTEM Calculated R [place] -44 degrees MUSE SYSTEM Calculated T [place] -69 degrees MUSE SYSTEM INTERPRETATION Sinus bradycardia with 1st degree A-V block Left axis deviation Moderate voltage criteria for LVH, may be normal variant ( R in aVL , [place] product ) T wave abnormality, consider inferolateral ischemia Prolonged QT Abnormal ECG When compared with ECG of 30-OCT-2023 20:21, Incomplete right bundle branch block is no longer Present Confirmed by MD NEFTALI, CHIDI ([id number]) on 10/31/2023 2:28:46 PM MUSE SYSTEM 10/31/2023 1:07 PM EDT 10/31/2023 2:28 PM EDT Rosa Cornejo MD ECG ORDERABLES Performing Organization Address [facility] Co de Phone Number MUSE SYSTEM * (ABNORMAL) Troponin (10/31/2023 11:37 AM EDT) Pathologist [facility] Troponin-T, High Sensitivity 580(H) <=14 ng/L [facility] Comment: This patient's troponin T [...] [facility] Test Catalog Reference: Fourth Minford Definition of Myocardial Infarction. Journal of the [place] 2018;72:5242-0137 Blood 10/31/2023 11:3 7 AM EDT 10/31/2023 11:50 AM EDT Narrative Resulting Agency Comment Spec In Lab Rosa Cornejo MD CHEMISTRY ORDERABLE S [facility] [place] [address] * ECHO COMPLETE (10/31/2023 8:52 AM EDT) Anatomical Region Laterality Modality Cardiac Other 10/31/2023 7:57 AM EDT Narrative 10/31/2023 9:45 AM EDT [address] [place] [address] ? Echocardiogram Report Name: ADIN SANTOS ? Study Date: 10/31/2023 07:57 AMBP: 106/76 mmHg ? Patient Location: [facility] 0481 A : 1940 ? Height: 163 cm ? Account: [id number] Age: 83 yrs ? Weight: 76 kg Gender: Female ?BSA: 1.8 m2 Ordering Physician: ROSA DEWEY Referring Physician: OMAIRA GIRON Performed By: HAFSA Carmichael Reason For Study: STEMI Interpreting Fellow: Raymond Warren. Exam Location: [facility]. Interpretation Summary -The left ventricle is [...] is no prior echocardiogram for comparison. Procedure Complete-15900. Satisfactory quality. There is sinus bradycardia. Left [...] Note Edgard Wang MD - 10/31/2023 [address] [place] [id number] Echocardiogram Report Name: TREY SANTOSMarco A Catherine Study Date: 407:57 AMBP: 106/76 mmHg Patient Location: [address] : 1940 Height: 163 cm Account: [id number] Age: 83 yrs Weight: 76 kg Gender: Female BSA: 1.8 m2 Ordering Physician: ROSA DEWEY Referring Physician: OMAIRA GIRON Performed By: HAFSA Carmichael Reason For Study: STEMI Interpreting Fellow: Raymond Warren. Exam Location: [facility]. Interpretation Summary -The left ventricle is [...] is no prior echocardiogram for comparison. Procedure Complete-83239. Satisfactory quality. There is sinus bradycardia. Left [...] EDT) Troponin-T, High Sensitivity 571(H) <=14 ng/L [facility] Comment: This patient's troponin T [...] [facility] Test Catalog Reference: Fourth Minford Definition of Myocardial Infarction. Journal of the [place] 2018;72:3811-2105 Blood 10/31/2023 8:51 AM EDT 10/31/2023 9:12 AM EDT Narrative Resulting Agency Comment Spec In Lab Rosa Cornejo MD CHEMISTRY ORDERABLE S Performing Organization Address City/State/[facility] Co de Phone Number [facility] [place] [address] * CARDIAC CATHETERIZATION (10/31/2023 8:10 AM EDT) Anatomical Region Laterality Modality Other Narrative 11/07/2023 9:42 AM EDT ?[facility] ? Cardiac Catheterization/Intervention Report ? Patient Name: Adin Santos M. ? Procedure Date: 10/30/2023 ? A #: [id number] ? Primary Physician: Rosa Dewey I ? Case #: [id number] ? File Name: [id number] ? Catheterization Order Number: [id number] ? [facility] ? Final Report [place], [place] ? Patient Name: ? Adin M. Goguen ?ID#: ?[id number] ? : ?1940 ? Procedure Date: ? October 30, 2023 ? Case #: ? [id number] ? Room: ? 5 ? Case Physician: [...] procedure was Emergent. The indication for ?the laboratory inspector visit is ACS less than or equal [...] ? A premounted 4.00 x 38 mm [place] (RADHA) was deployed ? with a [...] dose administered prior to arrival in the laboratory inspector. ?Recommended anti-platelet/anti-thrombotic regimen: ?Continue aspirin 81 mg daily for 12 months then stop. ?Continue clopidogrel 75 mg daily for indefinitely. ?These recommendations are made at the time of the intervention. Patient ?and provider preferences or a changing clinical situation may require ?modification of this regimen. Consult [facility] Interventional Cardiology for ?questions. ? Conclusions: ?* [...] Procedure Note Rosa Dewey MD - 12/05/2023 [facility] Cardiac Catheterization/Intervention Report Patient Name: Adin Santos Procedure Date: 10/30/2023 A #: [id number] Primary Physician: Rosa Dewey I Case #: [id number] File Name: [id number] Catheterization Order Number: [id number] [facility] FinalReport [place], [place] Patient Name: Adin Santos ID#:[id number] :[id number] Procedure Date: October 30, 2023 Case [...] was designated as ASA Class III. The [facility] clinical frailtyscale is 5: Mildly Frail. Diagnostic Tests: Electrocardiography: EKG was assessed by ECG. EKG was Abnormal. EKG showed STDeviation >= 0.5 mm, other abnormality and dynamic EKG changes. Medications Prior to Procedure: Aspirin, Angiotensin II Receptor Rodrick, Beta Rodrick andStatin. Indications for Diagnostic Cath: The priority of the diagnostic procedure was Emergent. Theindication for the laboratory inspector visit is ACS less than or equal [...] A premounted 4.00 x 38 mm Andrea [place] (RADHA) wasdeployed with a maximum inflation [...] dose administered prior to arrival in the laboratory inspector. Recommended anti-platelet/anti-thrombotic regimen: Continue aspirin 81 mg daily for 12 months then stop. Continue clopidogrel 75 mg daily for indefinitely. These recommendations are made at the time of the intervention.Patient and provider preferences or a changing clinical situation mayrequire modification of this regimen. Consult [facility] Inter[facility]iologyfor questions. Conclusions: * Two vessel [...] * (ABNORMAL) Troponin (10/31/2023 4:21 AM EDT) [facility] Troponin-T, High Sensitivity 457(H) <=14 ng/L [facility] Comment: This patient's troponin T [...] [facility] Laboratory Test Catalog Reference: Fourth Minford Definition of Myocardial Infarction. Journal of the [place] [employer] 2018;72:4086-1812 Blood 10/31/2023 4:21 AM EDT 10/31/2023 4:30 AM EDT Narrative Resulting Agency Comment Spec In Lab Rosa Cornejo MD CHEMISTRY ORDERABLE S Performing Organization Address City/State/[facility] Co de Phone Number [facility] [place] [address] * (ABNORMAL) Differential, Automated (10/31/2023 3:05 AM EDT) Neutrophil % 71.7 % [facility] Neutrophil Absolute 8.21(H) 1.70 - 6.10 x10(3)/mc L [facility] Lymph % 16.9 % [facility] Lymphocytes Abs 1.9 0.9 - 3.2 x10(3)/mc L [facility] Monocyte % 9.4 % [facility] Monocyte Abs 1.1(H) 0.3 - 0.9 x10(3)/mc L [facility] Eos % 1.3 % [facility] Eosinophils Abs 0.2 0.0 - 0.4 x10(3)/mc L [facility] Basophil % 0.4 % [facility] Baso Absolute 0.0 0.0 - 0.1 x10(3)/ L [facility] Immature Gran % 0.30 % [facility] Comment: Immature granulocytes(IG's)percentage and absolute count will include metamyelocytes, myelocytes, and promyelocytes. Blood smears from CBCs yielding IG's will be scanned manually for concordance. If this scan disagrees with the automated IG or if promyelocytes are noted, a manual differential will be performed. Immature Gran Absolute 0.04 0.00 - 0.04 x10(3)/ L [facility] Blood 10/31/2023 3:05 AM EDT 10/31/2023 3:13 AM EDT Narrative Resulting Agency Comment Spec In Lab Qamar Gallardo MD HEMATOLOGY ORDERABLE S Performing Organization Address City/State/[facility] Co de Phone Number [facility] [place] [address] * (ABNORMAL) Hemogram (10/31/2023 3:05 AM EDT) White Blood Cell 11.5(H) 4.0 - 9.5 x10(3)/ L [facility] Red Blood Cell 3.75(L) 4.00 - 5.21 x10(6)/ L [facility] Hemoglobin 12.6 11.7 - 15.5 g/dL [facility] Hematocrit 37.1 35.7 - 45.8 % [facility] Mean Cell Volume 98.9(H) 82.6 - 94.4 fL [facility] Mean Cell Hemoglobin 33.6(H) 27.1 - 32.0 pg [facility] Mean Cell Hemoglobin Concentration 34.0 31.7 - 35.0 g/dL [facility] Platelet 206 145 - 357 x10(3)/ L [facility] RDW Standard Deviation 53.4(H) 37.0 - 46.0 fL [facility] RDW coefficient of variation 14.6(H) 11.5 - 14.1 % [facility] Mean Platelet Volume 11.1 7.6 - 12.9 fL [facility] NRBC% auto 0.0 % [facility] NRBC Absolute 0.000 0.000 - 0.000 x10(3)/mc L [facility] Blood 10/31/2023 3:05 AM EDT 10/31/2023 3:13 AM EDT Narrative Resulting Agency Comment Spec In Lab Qamar Gallardo MD HEMATOLOGY ORDERABLE S Performing Organization Address [facility] Co de Phone Number [facility] [place] [address] * (ABNORMAL) APTT (10/31/2023 3:05 AM EDT) Partial Thromboplastin Time 67(H) 25 - 37 sec [facility] Comment: The PTT is NOT appropriate for heparin monitoring. Use the Anti-Xa level for heparin monitoring (HEP UFH) or LMWH monitoring (HEP LMW). A PTT less than 37 seconds generally indicates adequate hemostasis. Blood 10/31/2023 3:05 AM EDT 10/31/2023 3:13 AM EDT Narrative Resulting Agency Comment Spec In Lab Rosa Cornejo MD HEMATOLOGY ORDERABL ES Performing Organization Address [facility] Co de Phone Number [facility] [place] [address] * (ABNORMAL) Prothrombin Time (10/31/2023 3:05 AM EDT) Prothrombin Time 12.6(H) 9.4 - 12.5 sec [facility] International Normalization Ratio 1.1 [facility] Comment: An INR <2.0 indicates [...] Lab Rosa Cornejo MD HEMATOLOGY ORDERABL ES [facility] [place] [address] * (ABNORMAL) Differential, Automated (10/31/2023 1:37 AM EDT) Neutrophil % 71.1 % [facility] Neutrophil Absolute 7.53(H) 1.70 - 6.10 x10(3)/mc L [facility] Lymph % 18.0 % [facility] Lymphocytes Abs 1.9 0.9 - 3.2 x10(3)/mc L [facility] Monocyte % 8.7 % [facility] Monocyte Abs 0.9 0.3 - 0.9 x10(3)/mc L [facility] Eos % 1.6 % [facility] Eosinophils Abs 0.2 0.0 - 0.4 x10(3)/mc L [facility] Basophil % 0.4 % [facility] Baso Absolute 0.0 0.0 - 0.1 x10(3)/mc L [facility] Immature Gran % 0.20 % [facility] Comment: Immature granulocytes(IG's)percentage and absolute count will include metamyelocytes, myelocytes, and promyelocytes. Blood smears from CBCs yielding IG's will be scanned manually for concordance. If this scan disagrees with the automated IG or if promyelocytes are noted, a manual differential will be performed. Immature Gran Absolute 0.02 0.00 - 0.04 x10(3)/mc L [facility] Blood 10/31/2023 1:37 AM EDT 10/31/2023 1:46 AM EDT Narrative Resulting Agency Comment Spec In Lab Qamar Gallardo MD HEMATOLOGY ORDERABLE S [facility] [place] [address] * (ABNORMAL) Hemogram (10/31/2023 1:37 AM EDT) White Blood Cell 10.6(H) 4.0 - 9.5 x10(3)/mc L [facility] Red Blood Cell 3.78(L) 4.00 - 5.21 x10(6)/mc L [facility] Hemoglobin 13.0 11.7 - 15.5 g/dL [facility] Hematocrit 37.9 35.7 - 45.8 % [facility] Mean Cell Volume 100.3(H) 82.6 - 94.4 fL [facility] Mean Cell Hemoglobin 34.4(H) 27.1 - 32.0 pg [facility] Mean Cell Hemoglobin Concentration 34.3 31.7 - 35.0 g/dL [facility] Platelet 204 145 - 357 x10(3)/mc L [facility] RDW Standard Deviation 54.3(H) 37.0 - 46.0 fL [facility] RDW coefficient of variation 14.6(H) 11.5 - 14.1 % [facility] Mean Platelet Volume 11.1 7.6 - 12.9 fL [facility] NRBC% auto 0.0 % [facility] NRBC Absolute 0.000 0.000 - 0.000 x10(3)/mc L [facility] Blood 10/31/2023 1:37 AM EDT 10/31/2023 1:46 AM EDT Narrative Resulting Agency Comment Spec In Lab Qamar Gallardo MD HEMATOLOGY ORDERABLE S [facility] [place] [address] * Phosphorus (10/31/2023 1:37 AM EDT) [facility] Phosphorus 3.2 2.5 - 4.5 mg/dL [facility] Blood 10/31/2023 1:37 AM EDT 10/31/2023 1:46 AM EDT Narrative Resulting Agency Comment Spec In Lab Rosa Cornejo MD CHEMISTRY ORDERABLE S Performing Organization Address City/[facility]/ZIP Co de Phone Number [facility] [place] [address] * Magnesium (10/31/2023 1:37 AM EDT) [facility] Magnesium 0.83 0.69 - 1.07 mmol/L [facility] Blood 10/31/2023 1:37 AM EDT 10/31/2023 1:46 AM EDT Narrative Resulting Agency Comment Spec In Lab Rosa Cornejo MD CHEMISTRY ORDERABLE S Performing Organization Address City/[facility]/ZIP Co de Phone Number [facility] [place] [address] * Basic Metabolic Panel (non-fasting) (10/31/2023 1:37 AM EDT) [facility] Glucose 114 65 - 199 mg/dL [facility] Comment:Diabetes: >=200 mg/d L plus symptoms Blood Urea Nitrogen 13 8 - 18 mg/dL [facility] Creatinine 0.81 0.70 - 1.20 mg/dL [facility] Sodium 140 135 - 145 mmol/L [facility] Potassium 3.9 3.5 - 5.0 mmol/L [facility] Comment: Please note: ??Patients with WBC >100,000 may have falsely elevated Potassium levels. ??For accurate Potassium quantification in these patients send serum separator tube (gold top) for subsequent determinations. ??Contact the Clinical Chemistry Laboratory if there are any questions. Chloride 107 98 - 107 mmol/L [facility] Carbon Dioxide 25 22 - 31 mmol/L [facility] Anion Gap 8 5 - 15 mmol/L [facility] Calcium 8.6 8.5 - 10.5 mg/dL [facility] Est Glomerular Filtration Rate 72 >=60 mL/min/1. 73 m?? [facility] Comment: This patient's estimated GFR [...] Lab Rosa Cornejo MD CHEMISTRY ORDERABLE S [facility] [place] [address] * (ABNORMAL) Troponin (10/31/2023 1:37 AM EDT) Troponin-T, High Sensitivity 329(H) <=14 ng/L [facility] Comment: This patient's troponin T [...] [facility] Laboratory Test Catalog Reference: Fourth Minford Definition of Myocardial Infarction. Journal of the [place] [employer] 2018;72:3379-8301 Blood 10/31/2023 1:37 AM EDT 10/31/2023 1:46 AM EDT Narrative Resulting Agency Comment Spec In Lab Rosa Cornejo MD CHEMISTRY ORDERABLE S Performing Organization Address City/State/[facility] [place] [address] * EKG 12 Lead (10/31/2023 1:20 AM EDT) Ventricular rate 52 BPM MUSE SYSTEM Atrial Rate 52 BPM MUSE SYSTEM P-R Interval 224 ms MUSE SYSTEM QRS Duration 108 ms MUSE SYSTEM Q-T Interval 544 ms MUSE SYSTEM QTC Calculated (Bezet) 505 ms MUSE SYSTEM Calculated P [place] 90 degrees MUSE SYSTEM Calculated R [place] -57 degrees MUSE SYSTEM Calculated T [place] -63 degrees MUSE SYSTEM INTERPRETATION Sinus bradycardia with 1st degree A-V block Pulmonary disease pattern Left anterior fascicular block Moderate voltage criteria for LVH, may be normal variant ( R in aVL , [place] product ) T wave abnormality, consider inferior ischemia T wave abnormality, consider anterolateral ischemia Prolonged QT Abnormal ECG When compared with ECG of 30-OCT-2023 22:40, No significant change was found Confirmed by Butch Soto MD ([id number]) on 11/01/2023 8:58:03 PM MUSE SYSTEM 10/31/2023 1:20 AM EDT 11/01/2023 8:58 PM EDT Rosa Cornejo MD ECG ORDERABLES Performing Organization Address [facility] de Phone Number MUSE SYSTEM * EKG 12 Lead (10/30/2023 10:40 PM EDT) Ventricular rate 55 BPM MUSE SYSTEM Atrial Rate 55 BPM MUSE SYSTEM P-R Interval 232 ms MUSE SYSTEM QRS Duration 102 ms MUSE SYSTEM Q-T Interval 520 ms MUSE SYSTEM QTC Calculated (Bezet) 497 ms MUSE SYSTEM Calculated P [place] 75 degrees MUSE SYSTEM Calculated R [place] -53 degrees MUSE SYSTEM Calculated T [place] -57 degrees MUSE SYSTEM INTERPRETATION Sinus bradycardia with 1st degree A-V block Left anterior fascicular block Moderate voltage criteria for LVH, may be normal variant ( R in aVL , [place] product ) T wave abnormality, consider inferior ischemia T wave abnormality, consider anterolateral ischemia Prolonged QT Abnormal ECG When compared with ECG of 30-OCT-2023 20:21, Incomplete right bundle branch block is no longer Present Confirmed by Charles COFFMAN, Butch ([id number]) on 11/01/2023 8:58:01 PM MUSE SYSTEM 10/30/2023 10:4 0 PM EDT 11/01/2023 8:58 PM EDT Rosa Cornejo MD ECG ORDERABLES Performing Organization Address [facility] Phone Number MUSE SYSTEM * XR Chest One View (10/30/2023 10:10 PM EDT) WORKSTATION ID [id number] RAD Anatomical Region Laterality Modality Chest N/A Digital Radiogra phy Impressions 10/30/2023 10:32 PM EDT 1. ??Examination limited by low lung volumes. 2. ??Findings suggesting pulmonary vascular congestion with possible mild interstitial edema. 3. ??Known ascending aortic aneurysm, as seen on recent CT. 4. ??Nonspecific widening mediastinum. This can be secondary to magnification from portable technique and low lung volumes. Findings similar to color television console monitor radiograph from CT 10/30/2023. Thank you for letting us participate in the care of this patient. ??If you are a health care provider and have any questions regarding this report, please contact the number below. ??For patients who have questions please contact the health career development consultant that requested your imaging first. ? Electronically signed by: Wilson Mccartney MD, [facility] ([phone]), at 10/30/2023 10:32 PM Narrative 10/30/2023 10:32 [...] and low lung volumes. Findings similar to color television console monitor radiograph from CT 10/30/2023. Thank you for letting us participate in the care of this patient. If youare a health care provider and have any questions regarding this report,please contact the number below. For patients who have questions please contactthe health career development consultant that requested your imaging first. Rosa Cornejo MD IMG DX ORDERABLES * Green Tube HOLD (10/30/2023 10:05 PM EDT) [facility] Green Hold Sample in lab. [facility] Blood Venous Draw / Unknown 10/30/2023 10:05 PM EDT 10/30/2023 10:13 PM EDT Qamar Gallardo MD CHEMISTRY ORDERABLES [facility] [place] [address] * (ABNORMAL) Differential, Automated (10/30/2023 10:05 PM EDT) [facility] Neutrophil % 76.6 % [facility] Neutrophil Absolute 6.94(H) 1.70 - 6.10 x10(3)/mc L [facility] Lymph % 15.4 % [facility] Lymphocytes Abs 1.4 0.9 - 3.2 x10(3)/mc L [facility] Monocyte % 6.1 % [facility] Monocyte Abs 0.6 0.3 - 0.9 x10(3)/mc L [facility] Eos % 1.1 % [facility] Eosinophils Abs 0.1 0.0 - 0.4 x10(3)/ L [facility] Basophil % 0.6 % [facility] Baso Absolute 0.0 0.0 - 0.1 x10(3)/ L [facility] Immature Gran % 0.20 % [facility] Comment: Immature granulocytes(IG's)percentage and absolute count will include metamyelocytes, myelocytes, and promyelocytes. Blood smears from CBCs yielding IG's will be scanned manually for concordance. If this scan disagrees with the automated IG or if promyelocytes are noted, a manual differential will be performed. Immature Gran Absolute 0.02 0.00 - 0.04 x10(3)/ L [facility] Blood 10/30/2023 10:0 5 PM EDT 10/30/2023 10:12 PM EDT Narrative Resulting Agency Comment Spec In Lab Qamar Gallardo MD HEMATOLOGY ORDERABLE S [facility] [place] [address] * (ABNORMAL) Hemogram (10/30/2023 10:05 PM EDT) White Blood Cell 9.0 4.0 - 9.5 x10(3)/ L [facility] Red Blood Cell 3.96(L) 4.00 - 5.21 x10(6)/mc L [facility] Hemoglobin 13.3 11.7 - 15.5 g/dL [facility] Hematocrit 39.1 35.7 - 45.8 % [facility] Mean Cell Volume 98.7(H) 82.6 - 94.4 fL [facility] Mean Cell Hemoglobin 33.6(H) 27.1 - 32.0 pg [facility] Mean Cell Hemoglobin Concentration 34.0 31.7 - 35.0 g/dL [facility] Platelet 211 145 - 357 x10(3)/ L [facility] RDW Standard Deviation 53.6(H) 37.0 - 46.0 fL [facility] RDW coefficient of variation 14.6(H) 11.5 - 14.1 % [facility] Mean Platelet Volume 11.1 7.6 - 12.9 fL [facility] NRBC% auto 0.0 % [facility] NRBC Absolute 0.000 0.000 - 0.000 x10(3)/mc L [facility] Blood 10/30/2023 10:0 5 PM EDT 10/30/2023 10:12 PM EDT Narrative Resulting Agency Comment Spec In Lab Qamar Gallardo MD HEMATOLOGY ORDERABLE S Performing Organization Address City/[facility]/ZIP Co de Phone Number [facility] [place] [address] * Hemoglobin A1c (10/30/2023 10:05 PM EDT) Hemoglobin A1c 5.5 4.3 - 5.6 % [facility] Comment: Reference Range: 4.3 - [...] Mellitus, Diabetes Care 2013; 36: Suppl. 1, E95-81 Estimated Average Glucose See note mg/dL [facility] Comment: Estimated Average Glucose not appropriate for patients over 70 years of age. Blood 10/30/2023 10:0 5 PM EDT 10/30/2023 10:12 PM EDT Narrative Resulting Agency Comment Spec In Lab Rsoa Cornejo MD CHEMISTRY ORDERABLE S Performing Organization Address City/[facility]/ZIP Co de Phone Number [facility] [place] [address] * Lipid Panel (Reflex Direct LDL) (10/30/2023 10:05 PM EDT) Cholesterol, Total 218 mg/dL [facility] Comment: Desirable: ? <200 mg/dL Borderline High: 200-239 mg/dL Higher: ?>by=756 mg/dL Triglyceride 46 mg/dL [facility] Comment: Normal: ?<150 mg/dL Borderline High: 150-199 mg/dL High: ?200-499 mg/dL Very High: ? >ia=002 mg/dL HDL Cholesterol 64 mg/dL [facility] Comment: Females: High Risk: <50 mg/dL Males: High Risk: <40 mg/dL LDL Cholesterol 145 mg/dL [facility] Comment: Desirable: ? <100 mg/dL Above Desirable: 100-129 mg/dL Borderline High: 130-159 mg/dL High: ?160-189 mg/dL Very High: ? >xo=601 mg/dL Lipid Interpretation See Note [facility] Comment: It is important to [...] ACC/AHA Guidelines (most recently Feliciano et al. [facility] 03/23/22): For individuals with atherosclerotic cardiovascular disease (ASCVD)or LDL >gt=090 mg/dL, use a high-intensity statin (40-80 mg [...] Lab Rosa Cornejo MD CHEMISTRY ORDERABLE S [facility] [place] [address] * TSH [place] (10/30/2023 10:05 PM EDT) Thyroid Stimulating Hormone 3.35 0.27 - 4.20 mcIU/mL [facility] Comment: Reference Interval (mcIU/mL): Females: ??First Trimester: 0.23-3.88 ??Second Trimester: 0.22-3.90 ??Third Trimester: 0.44-4.66 Blood 10/30/2023 10:0 5 PM EDT 10/30/2023 10:12 PM EDT Narrative Resulting Agency Comment Spec In Lab Rosa Cornejo MD CHEMISTRY ORDERABLE S [facility] [place] [address] * pro-Brain Natriuretic Peptide (10/30/2023 10:05 PM EDT) NT-proBNP 375 <=449 pg/mL [facility] Blood 10/30/2023 10:0 5 PM EDT 10/30/2023 10:12 PM EDT Narrative Resulting Agency Comment Spec In Lab Rosa Cornejo MD CHEMISTRY ORDERABLE S Performing Organization Address [facility]/ZIP Co de Phone Number [facility] [place] [address] * (ABNORMAL) Comprehensive metabolic panel (non-fasting) (10/30/2023 10:05 PM EDT) Pathologist [facility] Glucose 121 65 - 199 mg/dL [facility] Comment:Diabetes: >=200 mg/d L plus symptoms Blood Urea Nitrogen 14 8 - 18 mg/dL [facility] Creatinine 0.85 0.70 - 1.20 mg/dL [facility] Sodium 142 135 - 145 mmol/L [facility] Potassium 3.9 3.5 - 5.0 mmol/L [facility] Comment: Please note: ??Patients with WBC >100,000 may have falsely elevated Potassium levels. ??For accurate Potassium quantification in these patients send serum separator tube (gold top) for subsequent determinations. ??Contact the Clinical Chemistry Laboratory if there are any questions. Chloride 105 98 - 107 mmol/L [facility] Carbon Dioxide 27 22 - 31 mmol/L [facility] Anion Gap 10 5 - 15 mmol/L [facility] Calcium 8.8 8.5 - 10.5 mg/dL [facility] Protein, Total 6.5 6.1 - 8.0 g/dL [facility] Albumin 4.2 3.2 - 5.2 g/dL [facility] Aspartate Aminotransferase 36(H) 0 - 30 unit/L [facility] Alanine Aminotransferase 17 0 - 30 unit/L [facility] Alkaline Phosphatase 54 35 - 105 unit/L [facility] Bilirubin, Total 0.5 0.2 - 1.3 mg/dL [facility] Est Glomerular Filtration Rate 68 >=60 mL/min/1. 73 m?? [facility] Comment: This patient's estimated GFR [...] [facility]ZIP Co de Phone Number [facility] [place] [address] * Phosphorus (10/30/2023 10:05 PM EDT) Phosphorus 3.3 2.5 - 4.5 mg/dL [facility] Blood 10/30/2023 10:0 5 PM EDT 10/30/2023 10:12 PM EDT Narrative Resulting Agency Comment Spec In Lab Rosa Cornejo MD CHEMISTRY ORDERABLE S Performing Organization Address City/[facility]/ZIP Co de Phone Number [facility] [place] [address] * Magnesium (10/30/2023 10:05 PM EDT) Magnesium 0.86 0.69 - 1.07 mmol/L [facility] Blood 10/30/2023 10:0 5 PM EDT 10/30/2023 10:12 PM EDT Narrative Resulting Agency Comment Spec In Lab Rosa Cornejo MD CHEMISTRY ORDERABLE S [facility] [place] [address] * (ABNORMAL) Troponin (10/30/2023 10:05 PM EDT) Troponin-T, High Sensitivity 214(H) <=14 ng/L [facility] Comment: This patient's troponin T [...] [facility] Test Catalog Reference: Fourth Minford Definition of Myocardial Infarction. Journal of the [place] [employer] 2018;72:1594-4782 Blood 10/30/2023 10:0 5 PM EDT 10/30/2023 10:12 PM EDT Narrative Resulting Agency Comment Spec In Lab Rosa Cornejo MD CHEMISTRY ORDERABLE S [facility] [place] [address] * EKG 12 Lead (10/30/2023 8:21 PM EDT) Ventricular rate 49 BPM MUSE SYSTEM Atrial Rate 49 BPM MUSE SYSTEM P-R Interval 230 ms MUSE SYSTEM QRS Duration 96 ms MUSE SYSTEM Q-T Interval 526 ms MUSE SYSTEM QTC Calculated (Bezet) 475 ms MUSE SYSTEM Calculated P [place] 98 degrees MUSE SYSTEM Calculated R [place] -48 degrees MUSE SYSTEM Calculated T [place] -51 degrees MUSE SYSTEM INTERPRETATION Sinus bradycardia with 1st degree A-V block Incomplete right bundle branch block Left anterior fascicular block Moderate voltage criteria for LVH, may be normal variant ( R in aVL , [place] product ) T wave abnormality, consider inferior ischemia T wave abnormality, consider anterolateral ischemia Prolonged QT Abnormal ECG When compared with ECG of 01-SEP-2007 11:02, Incomplete right bundle branch block is now Present Confirmed by MD NEFTALI, CHIDI ([id number]) on 10/31/2023 10:45:41 AM MUSE SYSTEM 10/30/2023 8:21 PM EDT 10/31/2023 10:45 AM EDT Rosa Cornejo MD ECG ORDERABLES Performing Organization Address City/[facility] Co de Phone Number MUSE SYSTEM [...] Shipley RN) 1730 (Given - Provider: Mary wSeeney, TANESHA) 1621 (Given - Provider: Moshe Pope [...] Provider: Admin Adt)2019 (Given - Provider: Danica Shpiley RN) 0900 (Given - Provider: Mary Sweeney, [...] documented as of this encounter Care Teams Mannequin Wig Maker Relationship Specialty Start Date End Date Rosie Mathews MD [address] [place] [phone] PCP - General Family Medicine 11/25/17 11/23/23 documented as of this encounter
--- OUTSIDE RECORDS SUMMARY | 2024-02-22 10:40 | XMS_ITS | Encounter Summary ---
Author Organization [facility] Address [facility] [place] [address] Care Team Providers Care Scabbler Name Role Phone Rosie Mathews MD Primary Care Provider [phone] Reason for Visit * Reason Comments Skin Lesion * Consultation (Routine) - Closed Specialty Diagnoses / Procedures Referred By John hunt Referred To Contact Dermatology Diagnoses facial skin lesion Procedures pt would like to be seen PRADEEP Rosie Mathews MD [address] [place] [address] [facility] [address] [place] [address] Referral ID Status Reason Start Date Expiration Date V isits Requested Visits Authorized [id number] Closed Consult, Test & Treat Connection Center 10/25/2017 10/25/2018 1 1 Encounter Details Date Type Department Care Team (Late st Contact Info) Description 11/25/2017 4:30 PM EDT Office Visit Dermatology at [facility] [address] [place] [address] Call, Radu Go MD [facility] DR [address]ER[place] [address] Seborrheic keratosis; Fibrous papule of [...] by Radu Tom MD Resident in Dermatology [facility] Patient seen in conjunction with staff mica parts sprayer: Terri Hale MD Section of Dermatology [facility] * Terri Hale MD - 11/25/2017 [...] AM EDT Office Visit Cardiology at [address] [address] Izaiah Meyer MD [facility] [place] [address] documented as of this encounter Visit Diagnoses Diagnosis Seborrheic keratosis Other seborrheic keratosis Fibrous papule of nose Benign neoplasm of skin of other and unspecified parts of face Skin tags, multiple acquired documented in this encounter Care Teams Scabbler Relationship Specialty Start Date End Date Rosie Mathews MD [address] [place] [address] PCP - General Family Medicine 11/25/17 11/23/23 documented as of this encounter
--- OUTSIDE RECORDS SUMMARY | 2024-02-22 10:40 | XMS_ITS | Clinical Summary ---
Author Organization [facility] Address [address] [facility] [place] [address] Care Team Providers Care Hammer Adjuster Name Role Phone Kirsten Bateman MD Primary Care Provider [phone] Allergies Active Allergy Reactions Criticality Noted Date [...] COVID-19 Vaccine (2022-24 season) 2023 Care Teams Hammer Adjuster Relationship Specialty Start Date End Date Kirstne Bateman MD [address] [place] [phone] PCP - General 01/13/10
--- OUTSIDE RECORDS SUMMARY | 2024-02-22 10:40 | XMS_ITS | Encounter Summary ---
Author Organization [facility] Address [address] [place] [address] Care Team Providers Care Paper Products Machine Operator Name Role Phone Kirsten Bateman MD Primary Care Provider [phone] Encounter Details Date Type Department Care Team (Late st Contact Info) Description 01/27/2021 Lab Requisition [facility] Pathology & Laboratory Medicine - [facility] [address] [place] [address] Outr Resulting Lab, Provider Social History Tobacco [...] Outr Resulting Lab MICROBIOLOGY - GENERAL ORDERABLES [facility] [address] [place] [address] * COVID-19 TESTING (01/26/2021 16:45 EDT) COVID-19 rt-PCR Result Negative Negative 01/28/2021 13:31 EDT [facility] Comment: This test [...] developed and its performance characteristics determined by [facility]. It has not been cleared or [...] This test is based on the [facility] COVID-19 Emergency Use Authorization (EUA) assay, with minor modification as defined by the FDA Performed on the [employer] 7 Pro RT-PCR System. Performing Lab [facility] Lab 01/28/2021 13:31 EDT [facility] Swab 01/26/2021 16:4 5 EDT 01/27/2021 15:46 EDT Provider Outr Resulting Lab MICROBIOLOGY - GENERAL ORDERABLES [facility] [address] [place] [address] documented in this encounter Visit Diagnoses Not on filedocumented in this encounter Care Teams Paper Products Machine Operator Relationship Specialty Start Date End Date Kirsten Bateman MD [address] [place] [address] PCP - General 01/13/10 documented as of this encounter
--- OUTSIDE RECORDS SUMMARY | 2024-02-22 10:40 | XMS_ITS | Encounter Summary ---
Author Organization [facility] Address [address] [place] [address] Care Team Providers Care Patient Assessment Coordinator Name Role Phone Kirsten Bateman MD Primary Care Provider [phone] Reason for Visit * Reason Comments Hearing Loss tinnitus Encounter Details Date Type Department Care Team (Latest Contact Info) Description 01/15/2010 10:10 EDT Office Visit [address] [address] Unknown, ProviderMD Ray Farooq MD [address] [place] [address] [address] Sensorineural hearing loss, bilateral; Subjective [...] Ray Farooq MD - 01/28/2010 1108 EDT [facility] PRO[facility]ESS/FOLLOWUP NOTE - 01/15/2010 CHIEF COMPLAINT: [...] Farooq MD - Ray Farooq MD - [facility] Job ID: SM Doc ID: [id number] Ext Doc ID: [id number] cc: Kirsten Bateman MD * Ray Farooq [...] tinnitus documented in this encounter Care Teams Patient Assessment Coordinator Relationship Specialty Start Date End Date Kirsten Bateman MD [address] [place] [address] PCP - General 01/13/10 documented as of this encounter
--- OUTSIDE RECORDS SUMMARY | 2024-02-22 10:40 | XMS_ITS | Referral Summary ---
Author Organization [facility] Address [address] [facility] [place] [address] Care Team Providers Care Heading Repairer Name Role Phone Kirsten Bateman MD Primary Care Provider [phone] Allergies Active Allergy Reactions Criticality Noted Date [...] of Treatment Not on file Care Teams Heading Repairer Relationship Specialty Start Date End Date Kirsten Bateman MD [address] [place] [address] [facility] - General 01/13/10
--- OUTSIDE RECORDS SUMMARY | 2024-02-22 10:40 | XMS_ITS | Encounter Summary ---
Author Organization [facility] Address [facility] [place] [address] Care Team Providers Care Safety Administrator Name Role Phone Rosie Mathews MD Primary Care Provider [phone] Encounter Details Date Type Department Care Team (Late st Contact Info) Description 10/30/2023 [place] [address] Jose Lee MD [facility] [address] Social History Tobacco Use Types Packs/Day Years Used Date Smoking Tobacco: Former Smokeless Tobacco: Never Alcohol Use Standard Drinks/Week Comments Not Currently 0 (1 standard drink = 0.6 oz pur e alcohol) [facility] Utilities Answer Date Recorded In the past 12 months has th e [employer], gas, oil, or water [employer] threatened to shut off services in your [...] AM EDT Office Visit Cardiology at [address] [address] Izaiah Meyer MD [facility] [place] [address] documented as of this encounter Visit Diagnoses Not on filedocumented in this encounter Additional Health Concerns Infection Onset Date Last Indicated Resolved Time Rule Out Respiratory 11/02/2023 11/02/2023 024 12:22 PM EDT Rule Out COVID-19 11/02/2023 11/02/2023 11/02/2023 12:22 PM EDT documented as of this encounter Care Teams Safety Administrator Relationship Specialty Start Date End Date Rosie Mathews MD [address] [place] [address] PCP - General Family Medicine 11/25/17 11/23/23 documented as of this encounter
--- OUTSIDE RECORDS SUMMARY | 2024-02-22 10:40 | XMS_ITS | Encounter Summary ---
Author Organization [facility] Address [facility] [place] [address] Care Team Providers Care Cps Team Lead Name Role Phone Rosie Mathews MD Primary Care Provider [phone] Encounter Details Date Type Department Care Team (Late st Contact Info) Description 10/30/2023 External Results Transfer Center [facility] [place] [address] Social History Tobacco Use Types Packs/Day Years Used Date Smoking Tobacco: Former Smokeless Tobacco: Never Alcohol Use Standard Drinks/Week Comments Not Currently 0 (1 standard drink = 0.6 oz pur e alcohol) [facility] Utilities Answer Date Recorded In the past 12 months has e [employer], gas, oil, or water [employer] threatened to shut off services in your [...] 11:20 AM EDT Office Visit Cardiology at [address] [address] Izaiah Meyer MD [facility] [place] [address] documented as of this encounter Procedures Procedure [...] on filedocumented in this encounter Care Teams Cps Team Lead Relationship Specialty Start Date End Date Rosie Mathews MD [address] [place] [address] PCP - General Family Medicine 11/25/17 11/23/23 documented as of this encounter
--- OUTSIDE RECORDS SUMMARY | 2024-02-22 10:40 | XMS_ITS | Encounter Summary ---
Author Organization [facility] Address [facility] [place] [address] Care Team Providers Care Treatment Plant Mechanic Name Role Phone Rosie Mathews MD Primary Care Provider [phone] Reason for Visit * Consultation (Routine) - Closed Specialty Diagnoses / Procedures Referred By John hunt Referred To Contact Audiology Diagnoses Hearing assessment and treatment options Karson John MD [address] [place] [address] [facility] [address] [place] [phone] Referral ID Status Reason Start Date Expiration Date V isits Requested Visits Authorized [id number] Closed Consult, Test & Treat Connection Center 11/22/2017 11/22/2018 1 1 Encounter Details Date Type Department Care Team (Latest Contact Info) Description 11/30/2017 3:15 PM EDT Office Visit Audiology at [address] [address] Georgette Onofre AUD [facility] [place] [address] Sensorineural hearing loss, bilateral; Bilateral tinnitus Social History Tobacco Use Types Packs/Day Years Used Date Smoking Tobacco: Former Smokeless Tobacco: Never Sex and Gender Information Value Date Recorded Sex Assigned at Not on file Gender Identity Not on file Sexual Orientation Not on file documented as of this encounter Progress Notes * Georgette Onofre, ORMEO - 11/30/2017 3:15 PM EDT AUDIOLOGY SECTION [...] first 10-15 years. Ms. Goodrich obtained binaural [facility] in-the-ear hearingaids nine years ago in [place], [place]. She stated she continues to experience [...] tone audiogram. SNR loss is the increased qotbpe-kt-qotai ratio required by an individual to understand [...] not hesitate to contact this Section at [phone] if there are questions regarding this report or its recommendations. Romeo [place] [id number] Attachment: audiogram CC: MD Karson Loo MD Laurmarco a Catherine Edvinjonatanjosue [facility] [address] [place] [phone] documented in this encounter Plan of Treatment Upcoming Encounters Date Type Department Care Team (Late st Contact Info) Description 03/29/2024 11:20 AM EDT Office Visit Cardiology at [address] [place] [address] Izaiah Meyer MD [facility] [place] [address] documented as of this encounter Procedures Procedure [...] tinnitus documented in this encounter Care Teams Treatment Plant Mechanic Relationship Specialty Start Date End Date Rosie Mathews MD [address] [place] [address] PCP - General Family Medicine 11/25/17 11/23/23 documented as of this encounter
--- OUTSIDE RECORDS SUMMARY | 2024-02-22 10:40 | XMS_ITS | Encounter Summary ---
Author Organization [facility] Address [address] [place] [address] Care Team Providers Care Roll Repairer Name Role Phone Unavailable Primary Care Provider Unavailabl e Encounter Details Date Type Department Care Team (Late st Contact Info) Description 01/10/2008 Before PRISM Converted Visit (Maple) [facility] conversion [address] [place] [address] Ray Farooq MD [address] [place] [address] Social History Tobacco Use Types Packs/Day Years Used Date Smoking Tobacco: Never Assessed Sex and Gender Information Value Date Recorded Sex Assigned at Not on file Gender Identity Not on file Sexual Orientation Not on file documented as of this encounter Consult Notes * Ray Farooq MD - 03/21/2009 9698 EDT [facility] - 01/10/2008 Kirsten Bateman MD [facility] [address] [place] [address] Bateman: Chief complaint: Hearing loss. History of present illness: Ihkky[age]qinih[age]s-old female with along history of bilateral hearing [...] aspirin, vitamin E, C, B12, B125 complex, Torey-Callery, EPA fatty acid, coral calcium complex, potassium chloride, Diovan, and hormone essentials. She has drug allergies to cortisone, Percocet, and hydrocodone. Family history is significant for cancer. Social history: The patient is a nonsmoker, nondrinker. She lives in [place]. Review of systems is significant for allergies, [...] Tosin Farooq MD - [facility] Job ID: [id number] Doc ID: [id number] cc: Kirsten Bateman MD cc: Kirsten Bateman MD documented in this encounter Plan of Treatment Not on file documented as of this encounter Visit Diagnoses Not on filedocumented in this encounter
--- OUTSIDE RECORDS SUMMARY | 2024-02-22 10:40 | XMS_ITS | Encounter Summary ---
Author Organization [facility] Address [address] [place] [address] Care Team Providers Care Middle School Sports Coach Name Role Phone Kirsten Bateman MD Primary Care Provider [phone] Encounter Details Date Type Department Care Team (Late st Contact Info) Description 01/14/2010 Abstract Used for ABSTRACTING Data [phone] Kirsten Bateman MD [address] [place] [address] Social History Tobacco Use Types [...] OIL/COCONUT OIL (FATTY ACID BASE MISC) by [facility].(Non-Drug; Combo Route) route. EPA CYANOCOBALAMIN (VITAMIN B-12 ORAL) Take by mouth. ASCORBIC ACID (VITAMIN C ORAL) Take by mouth. VITAMIN E ACETATE (VITAMIN E ORAL) Take by mouth. ASPIRIN ORAL Take by mouth. AMITRIPTYLINE HCL (AMITRIPTYLINE ORAL) Take by mouth. ATENOLOL ORAL Take by mouth. SIMVASTATIN ORAL Take by mouth. added in this encounter Care Teams Middle School Sports Coach Relationship Specialty Start Date End Date Kirsten Bateman MD [address] [place] [phone] PCP - General 01/13/10 documented as of this encounter
--- OUTSIDE RECORDS SUMMARY | 2024-02-27 09:53 | XMS_ITS | Encounter Summary ---
Author Organization [facility] Address [facility] [place] [address] Care Team Providers Care Net Application Architect Name Role Phone Rosie Mathews MD Primary Care Provider [phone] Reason for Referral * Consultation (Routine) - Authorized Specialty Diagnoses / Procedures Referred By Contac t Referred To Contact Cardiology Diagnoses 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 Rosa Hugo MD [facility] [place] [address] Cardiac Rehab, [address] [place] [address] Referral ID Status Reason Start Date Expiration Date Visits Requested Visits Authorized [id number] Authorized Consult, Test & Treat Non PCP 11/03/2023 05/01/2024 36 36 * Home Health Care (Routine) - Authorized Specialty Diagnoses / Procedures Referred By Contac t Referred To Contact Diagnoses Unstable angina Rosa Hugo MD [facility] [place] [address] Referral ID Status Reason Start Date Expiration Date Visits Requested Visits Authorized [id number] Authorized Consult, Test & Treat 11/03/2023 05/01/2024 999 999 Reason for Visit * Auth/Cert (Routine) Specialty Diagnoses / Procedures Referred By John hunt Referred To Contact Diagnoses Unstable angina Chest pain NSTEMI Procedures CARDIAC CATHETERIZATION Rosa Dewey MD [facility] [place] [address] [facility] Referral ID Status Reason Start Date Expiration Date Visits Re quested Visits Authorized [id number] 1 1 Encounter Details Date Type Department Care Team (Latest Contact Info) Description 10/30/2023 5:11 PM EDT - 11/03/2023 5:13 PM EDT Hospital Encounter Heart and Vascular Unit Level 4 [place] [address] Rosa Dewey MD [facility] [place] [address] Jean Laboy MD [facility] [place] [address] Rosa Hugo MD [facility] [place] [address] 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; Tachycardia; Unstable angina Discharge Disposition: Home Social History Tobacco Use Types Packs/Day Years Used Date Smoking Tobacco: Former Smokeless Tobacco: Never Alcohol Use Standard Drinks/Week Comments Not Currently 0 (1 standard drink = 0.6 oz pur e alcohol) [facility] Utilities Answer Date Recorded In the past 12 months has e [employer], gas, oil, or water [employer] threatened to shut off services in your [...] place to sleep or slept in a residential (including now)? No 11/01/2023 DH IPV Inpatient [...] for hypertension and hyperlipidemia who presented [place] [facility] [place] [facility] as a possible STEMI alert with acute onset chest pain. The patient reports that her symptoms initially began on Tuesday when she was walking to [employer] and experienced bilateral arm heaviness while walking with no other symptoms. Then, this afternoon shereports developing bilateral achy shoulder pain and nonradiating substernal left-sided chest pressure that was 7/10 in severity after coming home from [facility]dhist. The patient denies any associated fevers, chills, diaphoresis, lightheadedness/dizziness, syncope/presyncope, dyspnea (either at rest or on exertion), palpitations, orthopnea, or PND. The patient subsequently presented to [facility] as a walk-in for further evaluation. [...] on repeat, her TRU resolved. Cardiology at [facility] was consulted for transfer; the patient was loaded with aspirin 324 mg and ticagrelor 180 mg, started on a heparin drip, and given nitroglycerin with improvement in chest pain. Upon arrival to [facility], the patient was taken directly to the Finishing Range Feeder. Two lesions were discovered: one in the prox RCA (felt to almost be a SLITTER SCORER CUT OFF OPERATOR but they were able to wire, [...] dose administered prior to arrival in the manufacturing lab technician. Recommended anti-platelet/anti-thrombotic regimen: Continue aspirin [...] and low lung volumes. 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 Pending Studies and [...] 10:40 AM Izaiah Meyer MD Cardiology at [place] Arrive at: [facility] [address] [phone] Future Orders Complete By Expires Referral to Cardiac Rehab [[id number] Custom] As directed Process Instructions: If no progress note charted, please enter Clinical details in comments. Scheduling Instructions: Questions: My question or request is: STEMI. Cardiac rehab at [facility]. Referral to Home Health [REF34 Custom] As directed Process Instructions: If no progress note charted, please enter Clinical details in comments. Scheduling Instructions: Comments: Please evaluate Adin Santos for admission to Home Health. [address] [facility] [address] (home) Date of : 1940 Inpatient DOCUMENTATION FOR VNA SERVICES (INCLUDING THOSE PATIENTS WITH MEDICARE COVERAGE REQUIRING HOME VNA SERVICES AND/OR HOSPICE SERVICES) PATIENT'S LOCATION: Adin Santos [address] [facility] [phone] (home) Cell: Telephone Information: Head Of Precision Targeting's Name: self In discussion with the attending physician, it is certified that this patient is under their care and that they, or a Nurse Practitioner, Clinical Nurse specialist or Physician Psychological Assistant who is working directly with them, [...] [facility] [address] [place] [address] START OF CARE: within 24-48 hours of [...] Doctor Where Phone # Date Time PCP: Rosei Mathews MD / Dr. Masood Pierson [address] [place] [address] 11/09/23 1:55 PM arrival for 2:10 PM appointment Net Sql Developer: Izaiah Meyer MD [address] [place] [id number] , 11/24/2023 10:40 AM Your Inpatient Medical Team at [facility] Name(s) of your inpatient provider(s): Attending physician: Rosa Hugo MD Resident physicians: Emile Robles MD; Elmer Tamez MD If you have non-emergent questions, prior to your follow-up visit call: Tuesday-Tuesday between the hours of 8AM-5PM please call the Cardiology Clinic [phone] to speak with a nurse. All other hours please call the Hospital [facility] [phone] and ask to speak to the ice hockey coach on-call. Your Primary Care Provider Rosie Mathews MD [phone] For questions regarding this document or issues relating to this hospitalization on the Medical Service, please contact your inpatient physician through the [facility] . Issues afterhours and on weekends will be handled by the Net Sql Developer staff on-call. Associated attestation - Rosa Hugo [...] / Dr. Masood Pierson [address] [place] [address] 11/09/23 1:55 PM arrival for 2:10 PM appointment Net Sql Developer: Izaiah Meyer MD [address] [place] [address] , 11/24/2023 10:40 AM Your Inpatient Medical Team at [facility] Name(s) of your inpatient provider(s): Attending physician: Rosa Hugo MD Resident physicians: Emile Robles MD; Elmer Tamez MD If you have non-emergent questions, prior to your follow-up visit call: Tuesday-Tuesday between the hours of 8AM-5PM please call the Cardiology Clinic [phone] to speak with a nurse. All other hours please call the Hospital [facility] [phone] and ask to speak to the ice hockey coach on-call. Your Primary Care Provider Rosie Mathews MD [phone] documented in this encounter Medications at Time [...] 3 days ) Service: S1 ID: Adin aSntos is a 83 y.o. female PMH significant for hypertension and hyperlipidemia who presented to [facility] [place] a transfer from [facility] as a possible STEMI alert with [...] for hypertension and hyperlipidemia who presented to [facility] [place] a transfer from [facility] as a possible STEMI alert with [...] Resident on Cardiology Service Cardiology S1 (Pager [phone]) Note written in conjunction with Claudio Perla [...] Nirmala Webb - 11/01/2023 11:25 AM EDT Codifier Encounter Note Patient Name: Adin Santos : [id number] MR#: [id number] Admit Date: 10/30/2023 5:11 PM Hospital Day 2 days Narrative: Self initiated visit to patient for Spiritual support in a regular unit rounds. Assessment: Patient is in the bathroom at the time of this visit. Not a good time for Game Preserve Manager visit. Intervention and Outcome: An attempted [...] for hypertension and hyperlipidemia who presented to [facility] [place] a transfer from [facility] as a possible STEMI alert with [...] and low lung volumes. 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 Scheduled Medications: [AUG [...] for hypertension and hyperlipidemia who presented to [facility] as a transfer from [facility] as a possible STEMI alert with [...] Resident on Cardiology Service Cardiology S1 (Pager [phone]) Note written in conjunction with Claudio Perla [...] for hypertension and hyperlipidemia who presented to [facility] as a transfer from [facility] as a possible STEMI alert with acute onset chest pain. Active Problems: Active Hospital Problems Diagnosis Unstable angina Resolved Hospital Problems No resolved problems to display. 24 hr events: - Cath'd yesterday with lesion in the proximal RCA (initially thought it was SLITTER SCORER CUT OFF OPERATOR but they were ableto wire, balloon [...] and low lung volumes. 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 TTE (05/13): Interpretation [...] for hypertension and hyperlipidemia who presented to [facility] [place] a transfer from [facility] as a possible STEMI alert with [...] Resident on Cardiology Service Cardiology S1 (Pager [phone]) Note written in conjunction with Claudio Perla [...] PCP: Rosie Mathews MD PCP phone number: [phone] Date of Admission: 10/30/2023 ( Hospital Day 0 days ) Attending:Rosa Cornejo MD ID: Adin Santos is a 83 y.o. female PMH significant for hypertension and hyperlipidemia who presented to [facility] as a transfer from [facility] as a possible STEMI alert with acute onset chest pain. The patient reports that her symptoms initially began on Tuesday when she was walking to [employer] and experienced bilateral arm heaviness while walking with no other symptoms. Then, this afternoon shereports developing bilateral achy shoulder pain and nonradiating substernal left-sided chest pressure that was 7/10 in severity after coming home from [facility]. The patient denies any associated fevers, chills, diaphoresis, lightheadedness/dizziness, syncope/presyncope, dyspnea (either at rest or on exertion), palpitations, orthopnea, or PND. The patient subsequently presented to [facility] as a walk-in for further evaluation. [...] on repeat, her TRU resolved. Cardiology at [facility] was consulted for transfer; the patient was loaded with aspirin 324 mg and ticagrelor 180 mg, started on a heparin drip, and given nitroglycerin with improvement in chest pain. Upon arrival to [facility], the patient was taken directly to the Finishing Range Feeder. 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 Assessment & Plan: Adin Santos is a 83 y.o. female PMH significant for hypertension and hyperlipidemia who presented to [facility] as a transfer from [facility] as a possible STEMI alert with [...] with HTN HLD transferred with chest from [facility]. BP 217/68, HR 71 EKG with [...] information for follow-up Home Health & Hospice, [place] [address] [place] [address] TANESHA BOYCE confirmed with [facility] that they will see the patient within 24-48 hours of discharge for start of care. Transportation: family or friend will provide Wheelchair van/Ambulance? No Functional status prior to admission: Assistive Equipment Home Environment: Others in the home: alone. Current Living Arrangements: home/apartment/condo. Accessibility Concerns:1st floor apartment in senior care community; handicapped accessible. Current Functional Ability: Assistive Equipment DME used at home: cane - straight, grab bar - tub/shower, grab bar - toilet, raised toilet seat DME Needed at Discharge: N/A Patient is insured through: Primary Insurance: [employer] MANAGED MEDICARE Payor: [employer] MEDICARE / Plan: [employer] MANAGED MEDICARE PPO / Product Type: *No [...] the room. Electrolytes replaced, see MAR. laborer general sites remained C/D/I with baseline ecchymosis unchanged. Pt complained of back pain, lidocaine patch given. Right IV infiltrated during infusion, patient is marked with sharpie, IV removed. See flowsheet for I+O's and safety rounding. Patient is able to make needs known and call capps within reach. PLAN MOVING FORWARD: Monitor Tele, control BP, monitor manufacturing lab technician sites, D/C Planning INDIVIDUALIZED FALL [...] in an outpatient cardiac rehabilitation program at [facility] was discussed. Patient agrees to a [...] and above on RA. PT went to manufacturing lab technician today. Left fem site oozed [...] MOVING FORWARD: Monitor Tele, control BP, monitor manufacturing lab technician sites, D/C Planning INDIVIDUALIZED FALL [...] Admitted From: Transfer from another hospital Location: [facility] Reason for Hospitalization: chest pain Covid [...] receiving care in [place] must abide by [place] law. The hierarchy [...] (i) The agent with financial power of estate attorney or a conservator appointed in [...] Arrangements: home/apartment/condo. Accessibility Concerns:1st floor apartment in senior care community; handicapped accessible. In the last 12 months, was there a time when you were not able to pay the mortgage or rent on time?: No In the last 12 months, how many places have you lived?: 1 In the last 12 months, was there a time when you did not have a steady place to sleep or slept in formerly [facility] (including now)?: No In the past [...] toilet seat Home Address confirmed as: [address] [place] [id number] Social & Family Supports: All names listed below confirmed with patient as current and correct Extended Emergency Contact Information Primary Emergency Contact: Iris Downing Address: [address] [place], [place] [address] [place] [address] Mobile Relation: Child Secondary Emergency Contact: Karen More Address: [address] Mobile Relation: Child Current Care Provided by: self Provides Primary Care For: no one Caregiver if needed: child(emmanuel), adult Quality of Family relationships: involved, supportive Community Resources being provided currently: other (see comments) (receives [facility] services at home (1xweekly)) Behavioral Health History: [...] Insurance: N/A Prescription Coverage: Yes Preferred Pharmacy: [facility] - [place], [place] - [address] [facility] [address] [facility] [address] Status: Patient is a : No Primary Care Provider listed: Masood Pierson MD [phone] Patient/Caregiver Goals of Treatment: home when MR Potential Needs for Transition of Care: home health care Agency Referrals: Not Applicable I have met with the patient to: discuss discharge planning needs. provide the [facility], Office of Care Management letter from the Coupon Manifest Clerk pertaining to rehab referrals. provide a letter describing our affiliations within the [facility] and educate about their right to choose where referrals are sent. provide a list of Home Health Agencies / Durable Medical Equipment vendors which serve their preferred geographic area. provided patient with [facility] Star Quality Rating handout. They have requested referrals to: [facility] [address] [place] [address] Note routed to a Optomechanical Engineer who will communicate referrals to facilities [...] PO hydralazine added for BP control. laborer general sites remain C/D/I, ecchymosis unchanged th roughout shift. See flowsheet for I+O's and safety rounding. Patient is able to make needs known and call capps within reach. PLAN MOVING FORWARD: Monitor Tele, control CP and BP, NPO at MD for cath, monitor manufacturing lab technician sites, D/C Planning INDIVIDUALIZED FALL [...] AM EDT Office Visit Cardiology at [address] [place] [address] Izaiah Meyer MD [facility] [place] [place] [address] Scheduled Referrals Name Type Priority Associated Diagnoses [...] 3:46 AM EDT) Neutrophil % 63.3 % [facility] Neutrophil Absolute 5.28 1.70 - 6.10 x10(3)/mc L [facility] Lymph % 15.2 % [facility] Lymphocytes Abs 1.3 0.9 - 3.2 x10(3)/ L [facility] Monocyte % 16.9 % [facility] Monocyte Abs 1.4(H) 0.3 - 0.9 x10(3)/ L [facility] Eos % 3.7 % [facility] Eosinophils Abs 0.3 0.0 - 0.4 x10(3)/[facility] Basophil % 0.5 % [facility] Baso Absolute 0.0 0.0 - 0.1 x10(3)/ L [facility] Immature Gran % 0.40 % [facility] Comment: Immature granulocytes(IG's)percentage and absolute count will include metamyelocytes, myelocytes, and promyelocytes. Blood smears from CBCs yielding IG's will be scanned manually for concordance. If this scan disagrees with the automated IG or if promyelocytes are noted, a manual differential will be performed. Immature Gran Absolute 0.03 0.00 - 0.04 x10(3)/mc L [facility] Blood 11/03/2023 3:46 AM EDT 11/03/2023 4:11 AM EDT Narrative Resulting Agency Comment Spec In Lab Qamar Gallardo MD HEMATOLOGY ORDERABLE S [facility] [place] [address] * (ABNORMAL) Hemogram (11/03/2023 3:46 AM EDT) White Blood Cell 8.3 4.0 - 9.5 x10(3)/mc L [facility] Red Blood Cell 3.77(L) 4.00 - 5.21 x10(6)/mc L [facility] Hemoglobin 13.1 11.7 - 15.5 g/dL [facility] Hematocrit 38.0 35.7 - 45.8 % [facility] Mean Cell Volume 100.8(H) 82.6 - 94.[address] [facility] Mean Cell Hemoglobin 34.7(H) 27.1 - 32.[address] [facility] Mean Cell Hemoglobin Concentration 34.5 31.7 - 35.0 g/dL [facility] Platelet 181 145 - 357 x10(3)/[facility] RDW Standard Deviation 54.7(H) 37.0 - 46.0 [facility] RDW coefficient of variation 14.6(H) 11.5 - 14.1 % [facility] Mean Platelet Volume 11.2 7.6 - 12.9 [facility] NRBC% auto 0.0 % [facility] NRBC Absolute 0.000 0.000 - 0.000 x10(3)/ L [facility] Blood 11/03/2023 3:46 AM EDT 11/03/2023 4:11 AM EDT Narrative Resulting Agency Comment Spec In Lab Qamar Gallardo MD HEMATOLOGY ORDERABLE S [facility] [place] [address] * Phosphorus (11/03/2023 3:46 AM EDT) Phosphorus 3.2 2.5 - 4.5 mg/dL [facility] Comment:result rechecked-KS Blood 11/03/2023 3:46 AM EDT 11/03/2023 4:11 AM EDT Narrative Resulting Agency Comment Spec In Lab Rosa Cornejo MD CHEMISTRY ORDERABLE S [facility] [place] [address] * Magnesium (11/03/2023 3:46 AM EDT) Magnesium 0.90 0.69 - 1.07 mmol/L [facility] Blood 11/03/2023 3:46 AM EDT 11/03/2023 4:11 AM EDT Narrative Resulting Agency Comment Spec In Lab Rosa Cornejo MD CHEMISTRY ORDERABLE S Performing Organization Address City/[facility]/ZIP Co de Phone Number [facility] [place] [address] * (ABNORMAL) Basic Metabolic Panel (non-fasting) (11/03/2023 3:46 AM EDT) Glucose 105 65 - 199 mg/dL [facility] Comment:Diabetes: >=200 mg/d L plus symptoms Blood Urea Nitrogen 13 8 - 18 mg/dL [facility] Creatinine 0.83 0.70 - 1.20 mg/dL [facility] Sodium 139 135 - 145 mmol/L [facility] Potassium 4.0 3.5 - 5.0 mmol/L [facility] Comment: Please note: ??Patients with WBC >100,000 may have falsely elevated Potassium levels. ??For accurate Potassium quantification in these patients send serum separator tube (gold top) for subsequent determinations. ??Contact the Clinical Chemistry Laboratory if there are any questions. Chloride 108(H) 98 - 107 mmol/L [facility] Carbon Dioxide 19(L) 22 - 31 mmol/L [facility] Anion Gap 12 5 - 15 mmol/L [facility] Calcium 8.2(L) 8.5 - 10.5 mg/dL [facility] Est Glomerular Filtration Rate 69 >=60 mL/min/1. 73 m?? [facility] Comment: This patient's estimated GFR [...] Lab Rosa Cornejo MD CHEMISTRY ORDERABLE S [facility] [place] [phone] * EKG 12 Lead (11/02/2023 12:44 PM EDT) Ventricular rate 83 BPM MUSE SYSTEM Atrial Rate 83 BPM MUSE SYSTEM P-R Interval 216 ms MUSE SYSTEM QRS Duration 90 ms MUSE SYSTEM Q-T Interval 384 ms MUSE SYSTEM QTC Calculated (Bezet) 451 ms MUSE SYSTEM Calculated P [place] 92 degrees MUSE SYSTEM Calculated R [place] -51 degrees MUSE SYSTEM Calculated T [place] -33 degrees MUSE SYSTEM INTERPRETATION Sinus rhythm with 1st degree A-V block with Premature atrial complexes Left axis deviation Moderate voltage criteria for LVH, may be normal variant ( R in aVL , Ifeanyi product ) Anterolatera l infarct (cited on or before 01-NOV-2023) Abnormal ECG When compared with ECG of 01-NOV-2023 22:10, Premature atrial complexes are now Present [place] interval has increased Vent. rate has decreased [...] specimen volume Bacteria, Urine Many(A) None /HPF [facility] Squamous Epithelial Cells Raw Data, Urine 10(H) <=4 /HPF [facility] Hyaline Casts, Urine 2 0 - 2 /LPF [facility] Comment: Interpret results with caution, microscopic results are from suboptimal specimen volume Clean Catch Urine 11/02/2023 11:40 AM EDT 11/02/2023 12:05 PM EDT Narrative Resulting Agency Comment Spec In Lab Elmer Tamez MD URINE ORDERABLES Performing Organization Address City/[facility] Co de Phone Number [facility] [place] [address] * (ABNORMAL) Urinalysis with reflex Culture (11/02/2023 11:40 AM EDT) Glucose, Urine Dipstick Negative Negative mg/dL [facility] Protein, Urine Dipstick 30(A) Negative mg/dL [facility] Bilirubin, Urine Dipstick Negative Negative mg/dL [facility] Comment: Clinical correlation required for positive Urine Bilirubin results as false positive may occur with some drugs and drug related products. If a false positive is suspected a serum total bilirubin should be considered if clinically indicated. Urobilinogen, Urine Dipstick Normal Normal mg/dL ST [facility] pH, Urn (dipstick) 5.5 5.0 - 8.0 [facility] Blood, Urine Dipstick Negative Negative mg/dL [facility] Ketone, Urine Dipstick Trace(A) Negative mg/dL [facility] Nitrite, Urine Dipstick Positive(A) Negative [facility] Leukocytes, Urine Dipstick Small(A) Negative [facility] Appearance, Urine Dipstick Cloudy(A) Clear [facility] Specific Darby Urine Automated >=1.030(A) 1.005 - 1.030 [facility] Color, Urine Dipstick Dark Yellow Yellow [facility] Reflex to Culture Yes [facility] Clean Catch Urine 11/02/2023 11:40 AM EDT 11/02/2023 12:04 PM EDT Narrative Resulting Agency Comment Spec In Lab Rosa Hugo MD URINE ORDERABLES Performing Organization Address City/State/[facility] Co de Phone Number [facility] [place] [address] * Respiratory Panel PCR (11/02/2023 10:15 AM EDT) Respiratory Panel Source AMUSEMENT OR RECREATION CARD CHECKER Swab [facility] Respiratory Panel PCR Negative Negative [facility] Comment: Respiratory Panels are performed on the [employer], using multiplexed PCR nucleic acid detection. ??Negative results do not preclude respiratory infection and should not be used as the sole basis for diagnosis, treatment or other management decisions. Adenovirus Not Detected Not Detected [facility] Coronavirus HKU1 Not Detected Not Detected [facility] Coronavirus NL63 Not Detected Not Detected [facility] Coronavirus 229E Not Detected Not Detected [facility] Coronavirus OC43 Not Detected Not Detected [facility] SARS-CoV-[address]ed [facility] Comment: Testing for SARS-CoV-2 (Severe acute respiratory syndrome coronavirus 2) to aid in the diagnosis of COVID-19 is performed using the BioFire Respiratory Panel 2.1 ([employer]) as authorized by the FDA issued Emergency Use Authorization (EUA). This panel also tests for multiple other viral and bacterial pathogens. This assay is intended for In-vitro Diagnostic (IVD) use with nasopharyngeal swabs in viral transport media. The assay is performed based on the instructions for use and additional guidance provided by the FDA. Testing is performed in laboratories within the [facility], each of which is certified [...] fact sheets at the following FDA website: https://www.fda.gov/medical-devices/fvcokqpmppk-tddcels-4069-fffdl-84-tchzyafqn- use-a naldhxfvovtlm-xvlwguz-xmvkvwv/gtaid-lhlpjelpnlm-vzrb Human Metapneumovirus Not Detected Not Detected [facility] Human Rhinovirus/Enterov irus Not Detected Not Detected [facility] Influenza A Not Detected Not Detected [facility] Influenza B Not Detected Not Detected [facility] Parainfluenza 1 Not Detected Not Detected [facility] Parainfluenza 2 Not Detected Not Detected [facility] Parainfluenza 3 Not Detected Not Detected [facility] Parainfluenza 4 Not Detected Not Detected [facility] Respiratory Syncytial Virus Not Detected Not Detected [facility] Chlamydophila pneumoniae Not Detected Not Detected [facility] Mycoplasma pneumoniae Not Detected Not Detected [facility] Nasopharyngeal Swab 11/02/19 10:15 AM EDT 11/02/2023 10:49 AM EDT Narrative Resulting Agency Comment Spec In Lab Rosa Hugo MD MICROBIOLOGY - GEN ERAL ORDERABLES [facility] [place] [address] * XR Chest One View (11/02/2023 2:51 AM EDT) WORKSTATION ID [id number] RAD Anatomical Region Laterality Modality Chest N/A [...] who have questions please contact the health medicare nurse that requested your imaging first. ? Electronically signed by: Omaira Tran MD, [facility] ([phone]), at 11/02/2023 4:56 AM Narrative 11/02/2023 4:56 [...] patients who have questions please contactthe health medicare nurse that requested your imaging first. Electronically signed by: Omaira Tran MD, [facility]([phone]), at 11/02/2023 4:56 AM Rosa Hugo MD IMG DX ORDERABLES * (ABNORMAL) Differential, Automated (11/02/2023 12:35 AM EDT) Neutrophil % 76.5 % [facility] Neutrophil Absolute 7.69(H) 1.70 - 6.10 x10(3)/mc L [facility] Lymph % 8.3 % [facility] Lymphocytes Abs 0.8(L) 0.9 - 3.2 x10(3)/mc L [facility] Monocyte % 12.9 % [facility] Monocyte Abs 1.3(H) 0.3 - 0.9 x10(3)/mc L [facility] Eos % 1.4 % [facility] Eosinophils Abs 0.1 0.0 - 0.4 x10(3)/mc L [facility] Basophil % 0.4 % [facility] Baso Absolute 0.0 0.0 - 0.1 x10(3)/mc L [facility] Immature Gran % 0.50 % [facility] Comment: Immature granulocytes(IG's)percentage and absolute count will include metamyelocytes, myelocytes, and promyelocytes. Blood smears from CBCs yielding IG's will be scanned manually for concordance. If this scan disagrees with the automated IG or if promyelocytes are noted, a manual differential will be performed. Immature Gran Absolute 0.05(H) 0.00 - 0.04 x10(3)/mc L [facility] Blood 11/02/2023 12:3 5 AM EDT 11/02/2023 12:43 AM EDT Narrative Resulting Agency Comment Spec In Lab Qamar Gallardo MD HEMATOLOGY ORDERABLE S [facility] [place] [address] * (ABNORMAL) Hemogram (11/02/2023 12:35 AM EDT) White Blood Cell 10.0(H) 4.0 - 9.5 x10(3)/mc L [facility] Red Blood Cell 4.06 4.00 - 5.21 x10(6)/mc L [facility] Hemoglobin 13.8 11.7 - 15.5 g/dL [facility] Hematocrit 39.8 35.7 - 45.8 % [facility] Mean Cell Volume 98.0(H) 82.6 - 94.[address] [facility] Mean Cell Hemoglobin 34.0(H) 27.1 - 32.[address] [facility] Mean Cell Hemoglobin Concentration 34.7 31.7 - 35.0 g/dL [facility] Platelet 198 145 - 357 x10(3)/mc L [facility] RDW Standard Deviation 52.1(H) 37.0 - 46.[address] [facility] RDW coefficient of variation 14.3(H) 11.5 - 14.1 % [facility] Mean Platelet Volume 11.4 7.6 - 12.9 [facility] NRBC% auto 0.0 % [facility] NRBC Absolute 0.000 0.000 - 0.000 x10(3)/ L [facility] Blood 11/02/2023 12:3 5 AM EDT 11/02/2023 12:43 AM EDT Narrative Resulting Agency Comment Spec In Lab Qamar Gallardo MD HEMATOLOGY ORDERABLE S [facility] [place] [address] * (ABNORMAL) Phosphorus (11/02/2023 12:35 AM EDT) Phosphorus 1.6(L) 2.5 - 4.5 mg/dL [facility] Blood 11/02/2023 12:3 5 AM EDT 11/02/2023 12:43 AM EDT Narrative Resulting Agency Comment Spec In Lab Rosa Cornejo MD CHEMISTRY ORDERABLE S [facility] [place] [address] * Magnesium (11/02/2023 12:35 AM EDT) Pathologist [facility] Magnesium 0.87 0.69 - 1.07 mmol/L [facility] Blood 11/02/2023 12:3 5 AM EDT 11/02/2023 12:43 AM EDT Narrative Resulting Agency Comment Spec In Lab Rosa Cornejo MD CHEMISTRY ORDERABLE S Performing Organization Address City/[facility]/ZIP Co de Phone Number [facility] [place] [address] * Basic Metabolic Panel (non-fasting) (11/02/2023 12:35 AM EDT) Glucose 125 65 - 199 mg/dL [facility] Comment:Diabetes: >=200 mg/d L plus symptoms Blood Urea Nitrogen 9 8 - 18 mg/dL [facility] Creatinine 0.83 0.70 - 1.20 mg/dL [facility] Sodium 136 135 - 145 mmol/L [facility] Potassium 3.6 3.5 - 5.0 mmol/L [facility] Comment: Please note: ??Patients with WBC >100,000 may have falsely elevated Potassium levels. ??For accurate Potassium quantification in these patients send serum separator tube (gold top) for subsequent determinations. ??Contact the Clinical Chemistry Laboratory if there are any questions. Chloride 102 98 - 107 mmol/L [facility] Carbon Dioxide 25 22 - 31 mmol/L [facility] Anion Gap 9 5 - 15 mmol/L [facility] Calcium 9.0 8.5 - 10.5 mg/dL [facility] Est Glomerular Filtration Rate 69 >=60 mL/min/1. 73 m?? [facility] Comment: This patient's estimated GFR [...] Lab Rosa Cornejo MD CHEMISTRY ORDERABLE S [facility] [place] [address] * Blood culture (11/02/2023 12:35 AM EDT) Blood Culture No growth at [address] [facility] Blood 11/02/2023 12:3 5 AM EDT 11/02/2023 1:55 AM EDT Comment:#2 site ukn Narrative Resulting Agency Comment Spec In Lab Rosa Hugo MD MICROBIOLOGY - BLO OD ORDERABLES [facility] [place] [address] * Blood culture (11/02/2023 12:15 AM EDT) Blood Culture No growth at [address] [facility] Blood 11/02/2023 12:1 5 AM EDT 11/02/2023 1:54 AM EDT Comment:#1site unk Narrative Resulting Agency Comment Spec In Lab Rosa Hugo MD MICROBIOLOGY - BLO OD ORDERABLES Performing Organization Address City/[facility]/ZIP Co de Phone Number [facility] [place] [address] * EKG 12 Lead (11/01/2023 10:10 PM EDT) Ventricular rate 139 BPM MUSE SYSTEM Atrial Rate 139 BPM MUSE SYSTEM P-R Interval 168 ms MUSE SYSTEM QRS Duration 84 ms MUSE SYSTEM Q-T Interval 286 ms MUSE SYSTEM QTC Calculated (Bezet) 435 ms MUSE SYSTEM Calculated R [place] -59 degrees MUSE SYSTEM Calculated T [place] -27 degrees MUSE SYSTEM INTERPRETATION Mid-RP tachycardia, [...] interpretation Confirmed by fellow MD Andrés, Enriqueta ([id number]) on 11/04/2023 7:57:50 AM Confirmed by MD Gerardo, Shameka ([id number]) on 11/04/2023 4:32:03 PM MUSE SYSTEM 11/01/2023 10:1 0 PM EDT 11/04/2023 4:32 PM EDT Rosa Cornejo MD ECG ORDERABLES Performing Organization Address City/[facility]/ZIP Co de Phone Number MUSE SYSTEM * (ABNORMAL) Hemogram (11/01/2023 10:06 PM EDT) White Blood Cell 10.4(H) 4.0 - 9.5 x10(3)/ L [facility] Red Blood Cell 4.11 4.00 - 5.21 x10(6)/ L [facility] Hemoglobin 14.0 11.7 - 15.5 g/dL [facility] Hematocrit 41.1 35.7 - 45.8 % [facility] Mean Cell Volume 100.0(H) 82.6 - 94.[address] [facility] Mean Cell Hemoglobin 34.1(H) 27.1 - 32.[address] [facility] Mean Cell Hemoglobin Concentration 34.1 31.7 - 35.0 g/dL [facility] Platelet 197 145 - 357 x10(3)/[facility] RDW Standard Deviation 54.0(H) 37.0 - 46.[address] [facility] RDW coefficient of variation 14.6(H) 11.5 - 14.1 % [facility] Mean Platelet Volume 11.2 7.6 - 12.[address] [facility] NRBC% auto 0.0 % [facility] NRBC Absolute 0.000 0.000 - 0.000 x10(3)/[facility] Blood 11/01/2023 10:0 6 PM EDT 11/01/2023 10:22 PM EDT Narrative Resulting Agency Comment Spec In Lab Rosa Hugo MD HEMATOLOGY ORDERAB LES [facility] [place] [address] * POCT Glucose (11/01/2023 5:59 PM EDT) Glucose, POC 104 65 - 199 mg/dL [facility] Comment: Supplemental ranges: <140 mg/dL before meals <180 mg/dL all other times of the day Blood 11/01/2023 5:59 PM EDT 11/01/2023 5:59 PM EDT Rosa Hugo MD POINT OF CARE TEST ORDERABLES [facility] [place] [address] * POCT Glucose (11/01/2023 5:35 PM EDT) Glucose, POC 85 65 - 199 mg/dL [facility] Comment: Supplemental ranges: <140 mg/dL before meals <180 mg/dL all other times of the day Blood 11/01/2023 5:35 PM EDT 11/01/2023 5:35 PM EDT Rosa Hugo MD POINT OF CARE TEST ORDERABLES Performing Organization Address City/[facility] Co de Phone Number [facility] [place] [address] * EKG 12 Lead (11/01/2023 3:22 PM EDT) Ventricular rate 59 BPM MUSE SYSTEM Atrial Rate 59 BPM MUSE SYSTEM P-R Interval 220 ms MUSE SYSTEM QRS Duration 94 ms MUSE SYSTEM Q-T Interval 428 ms MUSE SYSTEM QTC Calculated (Bezet) 423 ms MUSE SYSTEM Calculated P [place] 76 degrees MUSE SYSTEM Calculated R [place] -50 degrees MUSE SYSTEM Calculated T [place] -59 degrees MUSE SYSTEM INTERPRETATION Sinus bradycardia with sinus arrhythmia with 1st degree A-V block Left anterior fascicular block Moderate voltage criteria for LVH, may be normal variant ( R in aVL , [place] product ) Cannot rule out Inferior infarct [...] Narrative 11/02/2023 4:57 PM EDT ?[facility] ? Cardiac Catheterization/Intervention Report ? Patient Name: Joleen, Adin Catherine. ? Procedure Date: 11/01/2023 ? A #: [id number] ? Primary Physician: Rosa Dewey I ? Case #: [id number] ? File Name: [id number] ? Catheterization Order Number: [id number] ? [facility] ?[facility] ? Final Report [place], [place] ? Patient Name: ? Adin Townsendjosue ?ID#: ?[id number] ? : ?1940 ? Procedure Date: ? [...] procedure was Urgent. The indication for ?the manufacturing lab technician visit is ACS greater than [...] premounted ? 3.50 x 15 mm Andrea Greeley (RADHA) was deployed with a maximum ? [...] ? A premounted 3.50 x 15 mm [place] (RADHA) was deployed ? with a maximum [...] dose administered prior to arrival in the manufacturing lab technician. ?Recommended anti-platelet/anti-thrombotic regimen: ?Continue aspirin 81 mg daily for indefinitely. ?Continue clopidogrel 75 mg daily for 12 months then stop. ?These recommendations are made at the time of the intervention. Patient ?and provider preferences or a changing clinical situation may require ?modification of this regimen. Consult [facility] [place] for ?questions. ?The [...] Note Otto, Rosa I, MD - 12/12/2023 [facility] Cardiac Catheterization/Intervention Report Patient Name: Adin Santos Procedure Date: 11/01/2023 A #: [id number] Primary Physician: Rosa Dewey I Case #: [id number] File Name: [id number] Catheterization Order Number: [id number] [facility] FinalReport [place], [place] Patient Name: Adin Santos ID#:[id number] :1940 Procedure Date: November 01, 2023 Case [...] diagnostic procedure was Urgent. The indicationfor the manufacturing lab technician visit is ACS greater than [...] 14 atmospheres. Apremounted 3.50 x 15 mm [place] (RADHA) was deployed with amaximum inflation pressure [...] The lesion was predilated with a 3.00mm AXONBPH56 MM balloon with a maximum inflation pressure of 14atmospheres. A premounted 3.50 x 15 mm Andrea [place] (RADHA) wasdeployed with a maximum inflation pressure [...] dose administered prior to arrival in the manufacturing lab technician. Recommended anti-platelet/anti-thrombotic regimen: Continue aspirin 81 mg daily for indefinitely. Continue clopidogrel 75 mg daily for 12 months then stop. These recommendations are made at the time of the intervention.Patient and provider preferences or a changing clinical situation mayrequire modification of this regimen. Consult [facility] [place]iology[place] questions. The 1 [...] POCT Glucose (11/01/2023 7:06 AM EDT) [facility] Glucose, POC 93 65 - 199 mg/dL [facility] Comment: Supplemental ranges: <140 mg/dL before meals <180 mg/dL all other times of the day Blood 11/01/2023 7:06 AM EDT 11/01/2023 7:06 AM EDT Jean Laboy MD POINT OF CARE TEST O RDERABLES [facility] [place] [address] * (ABNORMAL) Differential, Automated (11/01/2023 3:09 AM EDT) [facility] Neutrophil % 63.9 % [facility] Neutrophil Absolute 5.54 1.70 - 6.10 x10(3)/mc L [facility] Lymph % 20.0 % [facility] Lymphocytes Abs 1.7 0.9 - 3.2 x10(3)/mc L [facility] Monocyte % 11.9 % [facility] Monocyte Abs 1.0(H) 0.3 - 0.9 x10(3)/mc L [facility] Eos % 3.2 % [facility] Eosinophils Abs 0.3 0.0 - 0.4 x10(3)/mc L [facility] Basophil % 0.5 % [facility] Baso Absolute 0.0 0.0 - 0.1 x10(3)/mc L [facility] Immature Gran % 0.50 % [facility] Comment: Immature granulocytes(IG's)percentage and absolute count will include metamyelocytes, myelocytes, and promyelocytes. Blood smears from CBCs yielding IG's will be scanned manually for concordance. If this scan disagrees with the automated IG or if promyelocytes are noted, a manual differential will be performed. Immature Gran Absolute 0.04 0.00 - 0.04 x10(3)/ L [facility] Blood 11/01/2023 3:09 AM EDT 11/01/2023 3:29 AM EDT Narrative Resulting Agency Comment Spec In Lab Qamar Gallardo MD HEMATOLOGY ORDERABLE S Performing Organization Address City/State/[facility] Co de Phone Number [facility] [place] [address] * (ABNORMAL) Hemogram (11/01/2023 3:09 AM EDT) White Blood Cell 8.7 4.0 - 9.5 x10(3)/ L [facility] Red Blood Cell 3.72(L) 4.00 - 5.21 x10(6)/mc L [facility] Hemoglobin 12.5 11.7 - 15.5 g/dL [facility] Hematocrit 36.8 35.7 - 45.8 % [facility] Mean Cell Volume 98.9(H) 82.6 - 94.[address] [facility] Mean Cell Hemoglobin 33.6(H) 27.1 - 32.[address] [facility] Mean Cell Hemoglobin Concentration 34.0 31.7 - 35.0 g/dL [facility] Platelet 184 145 - 357 x10(3)/ L [facility] RDW Standard Deviation 53.5(H) 37.0 - 46.[address] [facility] RDW coefficient of variation 14.6(H) 11.5 - 14.1 % [facility] Mean Platelet Volume 11.3 7.6 - 12.[address] [facility] NRBC% auto 0.0 % [facility] NRBC Absolute 0.000 0.000 - 0.000 x10(3)/mc L [facility] Blood 11/01/2023 3:09 AM EDT 11/01/2023 3:29 AM EDT Narrative Resulting Agency Comment Spec In Lab Qamar Gallardo MD HEMATOLOGY ORDERABLE S Performing Organization Address City/[facility]/ZIP Co de Phone Number [facility] [place] [address] * Phosphorus (11/01/2023 3:09 AM EDT) Phosphorus 2.5 2.5 - 4.5 mg/dL [facility] Blood 11/01/2023 3:09 AM EDT 11/01/2023 3:29 AM EDT Narrative Resulting Agency Comment Spec In Lab Rosa Cornejo MD CHEMISTRY ORDERABLE S Performing Organization Address City/[facility]/ZIP Co de Phone Number [facility] [place] [address] * Magnesium (11/01/2023 3:09 AM EDT) Magnesium 0.82 0.69 - 1.07 mmol/L [facility] Blood 11/01/2023 3:09 AM EDT 11/01/2023 3:29 AM EDT Narrative Resulting Agency Comment Spec In Lab Rosa Cornejo MD CHEMISTRY ORDERABLE S Performing Organization Address City/[facility]/ZIP Co de Phone Number [facility] [place] [address] * (ABNORMAL) Basic Metabolic Panel (non-fasting) (11/01/2023 3:09 AM EDT) Glucose 100 65 - 199 mg/dL [facility] Comment:Diabetes: >=200 mg/d L plus symptoms Blood Urea Nitrogen 14 8 - 18 mg/dL [facility] Creatinine 0.83 0.70 - 1.20 mg/dL [facility] Sodium 137 135 - 145 mmol/L [facility] Potassium 3.4(L) 3.5 - 5.0 mmol/L [facility] Comment: Please note: ??Patients with WBC >100,000 may have falsely elevated Potassium levels. ??For accurate Potassium quantification in these patients send serum separator tube (gold top) for subsequent determinations. ??Contact the Clinical Chemistry Laboratory if there are any questions. Chloride 105 98 - 107 mmol/L [facility] Carbon Dioxide 24 22 - 31 mmol/L [facility] Anion Gap 8 5 - 15 mmol/L [facility] Calcium 8.6 8.5 - 10.5 mg/dL [facility] Est Glomerular Filtration Rate 69 >=60 mL/min/1. 73 m?? [facility] Comment: This patient's estimated GFR [...] Lab Rosa Cornejo MD CHEMISTRY ORDERABLE S [facility] [place] [address] * (ABNORMAL) Troponin (10/31/2023 2:46 PM EDT) Troponin-T, High Sensitivity 544(H) <=14 ng/L [facility] Comment: This patient's troponin T [...] [facility] Test Catalog Reference: Fourth Fleming Definition of Myocardial Infarction. Journal of the [place] [employer] 2018;72:6248-3218 Blood 10/31/2023 2:46 PM EDT 10/31/2023 2:55 PM EDT Narrative Resulting Agency Comment Spec In Lab Jean Laboy MD CHEMISTRY ORDERABLES [facility] [place] [address] * EKG 12 Lead (10/31/2023 1:07 PM EDT) Ventricular rate 54 BPM MUSE SYSTEM Atrial Rate 54 BPM MUSE SYSTEM P-R Interval 218 ms MUSE SYSTEM QRS Duration 92 ms MUSE SYSTEM Q-T Interval 540 ms MUSE SYSTEM QTC Calculated (Bezet) 512 ms MUSE SYSTEM Calculated P [place] 85 degrees MUSE SYSTEM Calculated R [place] -44 degrees MUSE SYSTEM Calculated T [place] -69 degrees MUSE SYSTEM INTERPRETATION Sinus bradycardia [...] EDT) Troponin-T, High Sensitivity 580(H) <=14 ng/L [facility] Comment: This patient's troponin T [...] [facility] Test Catalog Reference: Fourth Fleming Definition of Myocardial Infarction. Journal of the [place] [employer] 2018;72:3009-5824 Blood 10/31/2023 11:3 7 AM EDT 10/31/2023 11:50 AM EDT Narrative Resulting Agency Comment Spec In Lab Rosa Cornejo MD CHEMISTRY ORDERABLE S Performing Organization Address [facility]/State/ZIP Co de Phone Number [facility] [place] [address] * ECHO COMPLETE (10/31/2023 8:52 AM EDT) Anatomical Region Laterality Modality Cardiac Other 10/31/2023 7:57 AM EDT Narrative 10/31/2023 9:45 AM EDT [address] [place] [address] ? Echocardiogram Report Name: ADIN SANTOS ? Study Date: 10/31/2023 07:57 AMBP: 106/76 mmHg ? Patient Location: [id number] A : 1940 ? Height: 163 cm ? Account: [id number] Age: 83 yrs ? Weight: 76 kg Gender: Female ?BSA: 1.8 m2 Ordering Physician: ROSA DEWEY Referring Physician: OMAIRA GIRON Performed By: HAFSA Carmichael Reason For Study: STEMI Interpreting Fellow: Raymond Warren. Exam Location: [facility]. Interpretation Summary -The left ventricle [...] is no prior echocardiogram for comparison. Procedure Complete-24761. Satisfactory quality. There is sinus bradycardia. Left [...] Note Edgard Wang MD - 10/31/2023 [address] [place] [address] Echocardiogram Report Name: ADIN SANTOS Study Date: 407:57 AMBP: 106/76 mmHg Patient Location: [id number] A : 1940 Height: 163 cm Account: [id number] Age: 83 yrs Weight: 76 kg Gender: Female BSA: 1.8 m2 Ordering Physician: ROSA DEWEY Referring Physician: OMAIRA GIRON Performed By: HAFSA Carmichael Reason For Study: STEMI Interpreting Fellow: Raymond Warren. Exam Location: [facility]. Interpretation Summary -The left ventricle [...] is no prior echocardiogram for comparison. Procedure Complete-39248. Satisfactory quality. There is sinus bradycardia. Left [...] EDT) Troponin-T, High Sensitivity 571(H) <=14 ng/L [facility] Comment: This patient's troponin T [...] [facility] Test Catalog Reference: Fourth Fleming Definition of Myocardial Infarction. Journal of the [place] [employer] 2018;72:7460-5572 Blood 10/31/2023 8:51 AM EDT 10/31/2023 9:12 AM EDT Narrative Resulting Agency Comment Spec In Lab Rosa Cornejo MD CHEMISTRY ORDERABLE S [facility] [place] [address] * CARDIAC CATHETERIZATION (10/31/2023 8:10 AM EDT) Anatomical Region Laterality Modality Other Narrative 11/07/2023 9:42 AM EDT ?[facility] ? Cardiac Catheterization/Intervention Report ? Patient Name: Adin Santos. ? Procedure Date: 10/30/2023 ? A #: [id number] ? Primary Physician: Rosa Dewey I ? Case #: [id number] ? File Name: [id number] ? Catheterization Order Number: [id number] ? [facility] ? Final Report [place], [place] ? Patient Name: ? Adin M. Goguen ?ID#: ?[id number] ? : ?1940 ? Procedure Date: ? [...] procedure was Emergent. The indication for ?the manufacturing lab technician visit is ACS less than [...] A premounted 4.00 x 38 mm Andrea Greeley (RADHA) was deployed ? with a maximum [...] dose administered prior to arrival in the manufacturing lab technician. ?Recommended anti-platelet/anti-thrombotic regimen: ?Continue aspirin 81 mg daily for 12 months then stop. ?Continue clopidogrel 75 mg daily for indefinitely. ?These recommendations are made at the time of the intervention. Patient ?and provider preferences or a changing clinical situation may require ?modification of this regimen. Consult [facility] [place] for ?questions. ? [...] Rosa Dewey MD - 12/05/2023 [facility] Cardiac Catheterization/Intervention Report Patient Name: Adin Santos Procedure Date: 10/30/2023 A #: [id number] Primary Physician: Rosa Dewey I Case #: [id number] File Name: [id number] Catheterization Order Number: [id number] [facility] FinalReport [place], [place] Patient Name: Adin CatherineYasir Edvinree ID#:[id number] :[id number] Procedure Date: October 30, 2023 Case #: [id number] Room: 5 Case Physician: Rosa Dewey M.D. [...] was designated as ASA Class III. The [facility] clinical frailtyscale is 5: Mildly Frail. Diagnostic Tests: Electrocardiography: EKG was assessed by ECG. EKG was Abnormal. EKG showed STDeviation >= 0.5 mm, other abnormality and dynamic EKG changes. Medications Prior to Procedure: Aspirin, Angiotensin II Receptor Kristy, Beta Kristy andStatin. Indications for Diagnostic Cath: The priority of the diagnostic procedure was Emergent. Theindication for the manufacturing lab technician visit is ACS less than [...] priority for the procedure was Emergent.The [facility] indication for the procedure was [...] A premounted 4.00 x 38 mm Andrea Greeley (RADHA) wasdeployed with a maximum inflation pressure [...] dose administered prior to arrival in the manufacturing lab technician. Recommended anti-platelet/anti-thrombotic regimen: Continue aspirin 81 mg daily for 12 months then stop. Continue clopidogrel 75 mg daily for indefinitely. These recommendations are made at the time of the intervention.Patient and provider preferences or a changing clinical situation mayrequire modification of this regimen. Consult [facility] [place]iology[place] questions. Conclusions: * [...] (ABNORMAL) Troponin (10/31/2023 4:21 AM EDT) [facility] Troponin-T, High Sensitivity 457(H) <=14 ng/L [facility] Comment: This patient's troponin T [...] [facility] Test Catalog Reference: Fourth Fleming Definition of Myocardial Infarction. Journal of the [place] [employer] 2018;72:3073-8358 Blood 10/31/2023 4:21 AM EDT 10/31/2023 4:30 AM EDT Narrative Resulting Agency Comment Spec In Lab Rosa Cornejo MD CHEMISTRY ORDERABLE S [facility] [place] [address] * (ABNORMAL) Differential, Automated (10/31/2023 3:05 AM EDT) Neutrophil % 71.7 % [facility] Neutrophil Absolute 8.21(H) 1.70 - 6.10 x10(3)/mc L [facility] Lymph % 16.9 % [facility] Lymphocytes Abs 1.9 0.9 - 3.2 x10(3)/mc L [facility] Monocyte % 9.4 % [facility] Monocyte Abs 1.1(H) 0.3 - 0.9 x10(3)/mc L [facility] Eos % 1.3 % [facility] Eosinophils Abs 0.2 0.0 - 0.4 x10(3)/mc L [facility] Basophil % 0.4 % [facility] Baso Absolute 0.0 0.0 - 0.1 x10(3)/mc L [facility] Immature Gran % 0.30 % [facility] Comment: Immature granulocytes(IG's)percentage and absolute count will include metamyelocytes, myelocytes, and promyelocytes. Blood smears from CBCs yielding IG's will be scanned manually for concordance. If this scan disagrees with the automated IG or if promyelocytes are noted, a manual differential will be performed. Immature Gran Absolute 0.04 0.00 - 0.04 x10(3)/mc L [facility] Blood 10/31/2023 3:05 AM EDT 10/31/2023 3:13 AM EDT Narrative Resulting Agency Comment Spec In Lab Qamar Gallardo MD HEMATOLOGY ORDERABLE S [facility] [place] [address] * (ABNORMAL) Hemogram (10/31/2023 3:05 AM EDT) White Blood Cell 11.5(H) 4.0 - 9.5 x10(3)/ L [facility] Red Blood Cell 3.75(L) 4.00 - 5.21 x10(6)/[facility] Hemoglobin 12.6 11.7 - 15.5 g/dL [facility] Hematocrit 37.1 35.7 - 45.8 % [facility] Mean Cell Volume 98.9(H) 82.6 - 94.[address] [facility] Mean Cell Hemoglobin 33.6(H) 27.1 - 32.[address] [facility] Mean Cell Hemoglobin Concentration 34.0 31.7 - 35.0 g/dL [facility] Platelet 206 145 - 357 x10(3)/ L [facility] RDW Standard Deviation 53.4(H) 37.0 - 46.0 [facility] RDW coefficient of variation 14.6(H) 11.5 - 14.1 % [facility] Mean Platelet Volume 11.1 7.6 - 12.9 [facility] NRBC% auto 0.0 % [facility] NRBC Absolute 0.000 0.000 - 0.000 x10(3)/ L [facility] Blood 10/31/2023 3:05 AM EDT 10/31/2023 3:13 AM EDT Narrative Resulting Agency Comment Spec In Lab Qamar Gallardo MD HEMATOLOGY ORDERABLE S Performing Organization Address [facility] Co de Phone Number [facility] [place] [address] * (ABNORMAL) APTT (10/31/2023 3:05 AM EDT) Partial Thromboplastin Time 67(H) 25 - [address] [facility] Comment: The PTT is NOT appropriate for heparin monitoring. Use the Anti-Xa level for heparin monitoring (HEP UFH) or LMWH monitoring (HEP LMW). A PTT less than 37 seconds generally indicates adequate hemostasis. Blood 10/31/2023 3:05 AM EDT 10/31/2023 3:13 AM EDT Narrative Resulting Agency Comment Spec In Lab Rosa Cornejo MD HEMATOLOGY ORDERABL ES Performing Organization Address [facility] de Phone Number [facility] [place] [address] * (ABNORMAL) Prothrombin Time (10/31/2023 3:05 AM EDT) Prothrombin Time 12.6(H) 9.4 - 12.[address] [facility] International Normalization Ratio 1.1 [facility] Comment: An INR <2.0 indicates [...] ES Performing Organization Address [facility] Co de Phone [place] [address] * (ABNORMAL) Differential, Automated (10/31/2023 1:37 AM EDT) Pathologist [facility] Neutrophil % 71.1 % [facility] Neutrophil Absolute 7.53(H) 1.70 - 6.10 x10(3)/ L [facility] Lymph % 18.0 % [facility] Lymphocytes Abs 1.9 0.9 - 3.2 x10(3)/ L [facility] Monocyte % 8.7 % [facility] Monocyte Abs 0.9 0.3 - 0.9 x10(3)/[facility] Eos % 1.6 % [facility] Eosinophils Abs 0.2 0.0 - 0.4 x10(3)/[facility] Basophil % 0.4 % [facility] Baso Absolute 0.0 0.0 - 0.1 x10(3)/[facility] Immature Gran % 0.20 % [facility] Comment: Immature granulocytes(IG's)percentage and absolute count will include metamyelocytes, myelocytes, and promyelocytes. Blood smears from CBCs yielding IG's will be scanned manually for concordance. If this scan disagrees with the automated IG or if promyelocytes are noted, a manual differential will be performed. Immature Gran Absolute 0.02 0.00 - 0.04 x10(3)/ L [facility] Blood 10/31/2023 1:37 AM EDT 10/31/2023 1:46 AM EDT Narrative Resulting Agency Comment Spec In Lab Qamar Gallardo MD HEMATOLOGY ORDERABLE S [facility] [place] [address] * (ABNORMAL) Hemogram (10/31/2023 1:37 AM EDT) Pathologist [facility] White Blood Cell 10.6(H) 4.0 - 9.5 x10(3)/mc L [facility] Red Blood Cell 3.78(L) 4.00 - 5.21 x10(6)/mc L [facility] Hemoglobin 13.0 11.7 - 15.5 g/dL [facility] Hematocrit 37.9 35.7 - 45.8 % [facility] Mean Cell Volume 100.3(H) 82.6 - 94.[address] [facility] Mean Cell Hemoglobin 34.4(H) 27.1 - 32.[address] [facility] Mean Cell Hemoglobin Concentration 34.3 31.7 - 35.0 g/dL [facility] Platelet 204 145 - 357 x10(3)/ L [facility] RDW Standard Deviation 54.3(H) 37.0 - 46.[address] [facility] RDW coefficient of variation 14.6(H) 11.5 - 14.1 % [facility] Mean Platelet Volume 11.1 7.6 - 12.[address] [facility] NRBC% auto 0.0 % [facility] NRBC Absolute 0.000 0.000 - 0.000 x10(3)/ L [facility] Blood 10/31/2023 1:37 AM EDT 10/31/2023 1:46 AM EDT Narrative Resulting Agency Comment Spec In Lab Qamar Gallardo MD HEMATOLOGY ORDERABLE S [facility] [place] [address] * Phosphorus (10/31/2023 1:37 AM EDT) Phosphorus 3.2 2.5 - 4.5 mg/dL [facility] Blood 10/31/2023 1:37 AM EDT 10/31/2023 1:46 AM EDT Narrative Resulting Agency Comment Spec In Lab Rosa Cornejo MD CHEMISTRY ORDERABLE S [facility] [place] [address] * Magnesium (10/31/2023 1:37 AM EDT) Pathologist [facility] Magnesium 0.83 0.69 - 1.07 mmol/L [facility] Blood 10/31/2023 1:37 AM EDT 10/31/2023 1:46 AM EDT Narrative Resulting Agency Comment Spec In Lab Rosa Cornejo MD CHEMISTRY ORDERABLE S Performing Organization Address [facility] Co de Phone Number [facility] [place] [address] * Basic Metabolic Panel (non-fasting) (10/31/2023 1:37 AM EDT) Pathologist [facility] Glucose 114 65 - 199 mg/dL [facility] Comment:Diabetes: >=200 mg/d L plus symptoms Blood Urea Nitrogen 13 8 - 18 mg/dL [facility] Creatinine 0.81 0.70 - 1.20 mg/dL [facility] Sodium 140 135 - 145 mmol/L [facility] Potassium 3.9 3.5 - 5.0 mmol/L [facility] Comment: Please note: ??Patients with WBC >100,000 may have falsely elevated Potassium levels. ??For accurate Potassium quantification in these patients send serum separator tube (gold top) for subsequent determinations. ??Contact the Clinical Chemistry Laboratory if there are any questions. Chloride 107 98 - 107 mmol/L [facility] Carbon Dioxide 25 22 - 31 mmol/L [facility] Anion Gap 8 5 - 15 mmol/L [facility] Calcium 8.6 8.5 - 10.5 mg/dL [facility] Est Glomerular Filtration Rate 72 >=60 mL/min/1. 73 m?? [facility] Comment: This patient's estimated GFR [...] Lab Rosa Cornejo MD CHEMISTRY ORDERABLE S [facility] [place] [address] * (ABNORMAL) Troponin (10/31/2023 1:37 AM EDT) Troponin-T, High Sensitivity 329(H) <=14 ng/L [facility] Comment: This patient's troponin T [...] [facility] Test Catalog Reference: Fourth Fleming Definition of Myocardial Infarction. Journal of the [place] [employer] 2018;72:3384-3307 Blood 10/31/2023 1:37 AM EDT 10/31/2023 1:46 AM EDT Narrative Resulting Agency Comment Spec In Lab Rosa Cornejo MD CHEMISTRY ORDERABLE S Performing Organization Address [facility]/ZIP Co de Phone Number [facility] [place] [address] * EKG 12 Lead (10/31/2023 1:20 AM EDT) Ventricular rate 52 BPM MUSE SYSTEM Atrial Rate 52 BPM MUSE SYSTEM P-R Interval 224 ms MUSE SYSTEM QRS Duration 108 ms MUSE SYSTEM Q-T Interval 544 ms MUSE SYSTEM QTC Calculated (Bezet) 505 ms MUSE SYSTEM Calculated P [place] 90 degrees MUSE SYSTEM Calculated R [place] -57 degrees MUSE SYSTEM Calculated T [place] -63 degrees MUSE SYSTEM INTERPRETATION Sinus bradycardia [...] Cornejo MD ECG ORDERABLES Performing Organization Address City/[facility]/ZIP Co de Phone Number MUSE SYSTEM * EKG 12 Lead (10/30/2023 10:40 PM EDT) Ventricular rate 55 BPM MUSE SYSTEM Atrial Rate 55 BPM MUSE SYSTEM P-R Interval 232 ms MUSE SYSTEM QRS Duration 102 ms MUSE SYSTEM Q-T Interval 520 ms MUSE SYSTEM QTC Calculated (Bezet) 497 ms MUSE SYSTEM Calculated P [place] 75 degrees MUSE SYSTEM Calculated R [place] -53 degrees MUSE SYSTEM Calculated T [place] -57 degrees MUSE SYSTEM INTERPRETATION Sinus bradycardia [...] Chest One View (10/30/2023 10:10 PM EDT) [employer] WORKSTATION ID [id number] DH RAD Anatomical Region Laterality Modality Chest [...] and low lung volumes. 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 Thank you for letting us participate in the care of this patient. ??If you are a health care provider and have any questions regarding this report, please contact the number below. ??For patients who have questions please contact the health medicare nurse that requested your imaging first. ? [...] and low lung volumes. 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 Thank you for letting us participate in the care of this patient. If youare a health care provider and have any questions regarding this report,please contact the number below. For patients who have questions please contactthe health medicare nurse that requested your imaging first. Rosa Cornejo MD IMG DX ORDERABLES * Green Tube HOLD (10/30/2023 10:05 PM EDT) Pathologist [facility] Green Hold Sample in lab. [facility] Blood Venous Draw / Unknown 10/30/2023 10:05 PM EDT 10/30/2023 10:13 PM EDT Qamar Gallardo MD CHEMISTRY ORDERABLES [facility] [place] [address] * (ABNORMAL) Differential, Automated (10/30/2023 10:05 PM EDT) Pathologist [facility] Neutrophil % 76.6 % [facility] Neutrophil Absolute 6.94(H) 1.70 - 6.10 x10(3)/mc L [facility] Lymph % 15.4 % [facility] Lymphocytes Abs 1.4 0.9 - 3.2 x10(3)/mc L [facility] Monocyte % 6.1 % [facility] Monocyte Abs 0.6 0.3 - 0.9 x10(3)/mc L [facility] Eos % 1.1 % [facility] Eosinophils Abs 0.1 0.0 - 0.4 x10(3)/mc L [facility] Basophil % 0.6 % [facility] Baso Absolute 0.0 0.0 - 0.1 x10(3)/mc L [facility] Immature Gran % 0.20 % [facility] Comment: Immature granulocytes(IG's)percentage and absolute count will include metamyelocytes, myelocytes, and promyelocytes. Blood smears from CBCs yielding IG's will be scanned manually for concordance. If this scan disagrees with the automated IG or if promyelocytes are noted, a manual differential will be performed. Immature Gran Absolute 0.02 0.00 - 0.04 x10(3)/mc L [facility] Blood 10/30/2023 10:0 5 PM EDT 10/30/2023 10:12 PM EDT Narrative Resulting Agency Comment Spec In Lab Qamar Gallardo MD HEMATOLOGY ORDERABLE S [facility] [place] [address] * (ABNORMAL) Hemogram (10/30/2023 10:05 PM EDT) White Blood Cell 9.0 4.0 - 9.5 x10(3)/mc L [facility] Red Blood Cell 3.96(L) 4.00 - 5.21 x10(6)/mc L [facility] Hemoglobin 13.3 11.7 - 15.5 g/dL [facility] Hematocrit 39.1 35.7 - 45.8 % [facility] Mean Cell Volume 98.7(H) 82.6 - 94.[address] [facility] Mean Cell Hemoglobin 33.6(H) 27.1 - 32.[address] [facility] Mean Cell Hemoglobin Concentration 34.0 31.7 - 35.0 g/dL [facility] Platelet 211 145 - 357 x10(3)/mc L [facility] RDW Standard Deviation 53.6(H) 37.0 - 46.[address] [facility] RDW coefficient of variation 14.6(H) 11.5 - 14.1 % [facility] Mean Platelet Volume 11.1 7.6 - 12.[address] [facility] NRBC% auto 0.0 % [facility] NRBC Absolute 0.000 0.000 - 0.000 x10(3)/mc L [facility] Blood 10/30/2023 10:0 5 PM EDT 10/30/2023 10:12 PM EDT Narrative Resulting Agency Comment Spec In Lab Qamar Gallardo MD HEMATOLOGY ORDERABLE S Performing Organization Address [facility] Co de Phone Number [facility] [place] [address] * Hemoglobin A1c (10/30/2023 10:05 PM EDT) Hemoglobin A1c 5.5 4.3 - 5.6 % [facility] Comment: Reference Range: 4.3 - [...] Mellitus, Diabetes Care 2013; 36: Suppl. 1, S67-06 Estimated Average Glucose See note mg/dL [facility] Comment: Estimated Average Glucose not appropriate for patients over 70 years of age. Blood 10/30/2023 10:0 5 PM EDT 10/30/2023 10:12 PM EDT Narrative Resulting Agency Comment Spec In Lab Rosa Cornejo MD CHEMISTRY ORDERABLE S Performing Organization Address [facility] Co de Phone Number [facility] [place] [address] * Lipid Panel (Reflex Direct LDL) (10/30/2023 10:05 PM EDT) Cholesterol, Total 218 mg/dL [facility] Comment: Desirable: ? <200 mg/dL Borderline High: 200-239 mg/dL Higher: ?>ip=845 mg/dL Triglyceride 46 mg/dL [facility] Comment: Normal: ?<150 mg/dL Borderline High: 150-199 mg/dL High: ?200-499 mg/dL Very High: ? >cd=151 mg/dL HDL Cholesterol 64 mg/dL [facility] Comment: Females: High Risk: <50 mg/dL Males: High Risk: <40 mg/dL LDL Cholesterol 145 mg/dL [facility] Comment: Desirable: ? <100 mg/dL Above Desirable: 100-129 mg/dL Borderline High: 130-159 mg/dL High: ?160-189 mg/dL Very High: ? >lu=215 mg/dL Lipid Interpretation See Note [facility] Comment: It is important to [...] ACC/AHA Guidelines (most recently Feliciano et al. [facility] 03/23/22): For individuals with atherosclerotic cardiovascular disease (ASCVD)or LDL >cj=253 mg/dL, use a high-intensity statin (40-80 mg [...] MD CHEMISTRY ORDERABLE S Performing Organization Address [facility] Co de Phone Number [facility] [place] [address] * TSH Major (10/30/2023 10:05 PM EDT) Thyroid Stimulating Hormone 3.35 0.27 - 4.20 mcIU/mL [facility] Comment: Reference Interval (mcIU/mL): Females: ??First Trimester: 0.23-3.88 ??Second Trimester: 0.22-3.90 ??Third Trimester: 0.44-4.66 Blood 10/30/2023 10:0 5 PM EDT 10/30/2023 10:12 PM EDT Narrative Resulting Agency Comment Spec In Lab Rosa Cornejo MD CHEMISTRY ORDERABLE S Performing Organization Address [facility] Co de Phone Number [facility] [place] [address] * pro-Brain Natriuretic Peptide (10/30/2023 10:05 PM EDT) NT-proBNP 375 <=449 pg/mL [facility] Blood 10/30/2023 10:0 5 PM EDT 10/30/2023 10:12 PM EDT Narrative Resulting Agency Comment Spec In Lab Rosa Cornejo MD CHEMISTRY ORDERABLE S [facility] [place] [address] * (ABNORMAL) Comprehensive metabolic panel (non-fasting) (10/30/2023 10:05 PM EDT) Glucose 121 65 - 199 mg/dL [facility] Comment:Diabetes: >=200 mg/d L plus symptoms Blood Urea Nitrogen 14 8 - 18 mg/dL [facility] Creatinine 0.85 0.70 - 1.20 mg/dL [facility] Sodium 142 135 - 145 mmol/L [facility] Potassium 3.9 3.5 - 5.0 mmol/L [facility] Comment: Please note: ??Patients with WBC >100,000 may have falsely elevated Potassium levels. ??For accurate Potassium quantification in these patients send serum separator tube (gold top) for subsequent determinations. ??Contact the Clinical Chemistry Laboratory if there are any questions. Chloride 105 98 - 107 mmol/L [facility] Carbon Dioxide 27 22 - 31 mmol/L [facility] Anion Gap 10 5 - 15 mmol/L [facility] Calcium 8.8 8.5 - 10.5 mg/dL [facility] Protein, Total 6.5 6.1 - 8.0 g/dL [facility] Albumin 4.2 3.2 - 5.2 g/dL [facility] Aspartate Aminotransferase 36(H) 0 - 30 unit/L [facility] Alanine Aminotransferase 17 0 - 30 unit/L [facility] Alkaline Phosphatase 54 35 - 105 unit/L [facility] Bilirubin, Total 0.5 0.2 - 1.3 mg/dL [facility] Est Glomerular Filtration Rate 68 >=60 mL/min/1. 73 m?? [facility] Comment: This patient's estimated GFR [...] MD CHEMISTRY ORDERABLE S Performing Organization Address City/[facility]/ZIP Co de Phone Number [facility] [place] [address] * Phosphorus (10/30/2023 10:05 PM EDT) Phosphorus 3.3 2.5 - 4.5 mg/dL [facility] Blood 10/30/2023 10:0 5 PM EDT 10/30/2023 10:12 PM EDT Narrative Resulting Agency Comment Spec In Lab Rosa Cornejo MD CHEMISTRY ORDERABLE S Performing Organization Address City/[facility]/ZIP Co de Phone Number [facility] [place] [address] * Magnesium (10/30/2023 10:05 PM EDT) Magnesium 0.86 0.69 - 1.07 mmol/L [facility] Blood 10/30/2023 10:0 5 PM EDT 10/30/2023 10:12 PM EDT Narrative Resulting Agency Comment Spec In Lab Rosa Cornejo MD CHEMISTRY ORDERABLE S Performing Organization Address City/[facility]/ZIP Co de Phone Number [facility] [place] [address] * (ABNORMAL) Troponin (10/30/2023 10:05 PM EDT) [facility] Troponin-T, High Sensitivity 214(H) <=14 ng/L [facility] Comment: This patient's troponin T [...] [facility] Test Catalog Reference: Fourth Fleming Definition of Myocardial Infarction. Journal of the [place] [employer] 2018;72:3634-2291 Blood 10/30/2023 10:0 5 PM EDT 10/30/2023 10:12 PM EDT Narrative Resulting Agency Comment Spec In Lab Rosa Cornejo MD CHEMISTRY ORDERABLE S [facility] [place] [address] * EKG 12 Lead (10/30/2023 8:21 PM EDT) [facility] Ventricular rate 49 BPM MUSE SYSTEM Atrial Rate 49 BPM MUSE SYSTEM P-R Interval 230 ms MUSE SYSTEM QRS Duration 96 ms MUSE SYSTEM Q-T Interval 526 ms MUSE SYSTEM QTC Calculated (Bezet) 475 ms MUSE SYSTEM Calculated P [place] 98 degrees MUSE SYSTEM Calculated R [place] -48 degrees MUSE SYSTEM Calculated T [place] -51 degrees MUSE SYSTEM INTERPRETATION Sinus bradycardia with 1st degree A-V block Incomplete right bundle branch block Left anterior fascicular block Moderate voltage criteria for LVH, may be normal variant ( R in aVL , [place] product ) T wave abnormality, consider inferior [...] Danica Shipley RN) 0607 (Given - Provider: aDnica Shipley RN)1338 (Given - Provider: Lucretia Thurman, [...] last 24 to 72 hours., Routine 1333 ([facility] Hold - Provider: Admin Adt - Reason: Transfer to a Procedural area)1548 ([facility] Unhold - Provider: Admin Adt) sodium chloride 0.9 % (flush) (BD PosiFlush Normal Saline 0.9) flush 5-20 mL 5-20 mL, Intravenous, EVERY 1 MIN PRN, Starting on 10/30/23 at 2208, Until Amna 11/03/23 at 1913, flush, Flush pertains to all indwelling lines. Flush per protocol found in the job aid using the link provided on this medication record., Routine 1333 ([facility] Hold - Provider: Admin Adt - Reason: Transfer to a Procedural area)1548 ([facility] Unhold - Provider: Admin Adt) documented in this encounter Additional Health Concerns Infection Onset Date Last Indicated Resolved Time Rule Out Respiratory 11/02/2023 11/02/2023 024 12:22 PM EDT Rule Out COVID-19 11/02/2023 11/02/2023 11/02/2023 12:22 PM EDT documented as of this encounter Care Teams Net Application Architect Relationship Specialty Start Date End Date Rosie Mathews MD [address] [place] [address] PCP - General Family Medicine 11/25/17 11/23/23 documented as of this encounter
--- OUTSIDE RECORDS SUMMARY | 2024-02-27 09:53 | XMS_ITS | Encounter Summary ---
Author Organization [facility] Address [facility] [place] [address] Care Team Providers Care Apple Press Operator Name Role Phone Masood Pierson MD Primary Care Provider [phone] Encounter Details Date Type Department Care Team (Late st Contact Info) Description 12/16/2023 Telephone Cardiology at [address] [place] [address] Izaiah Meyer MD [facility] [place] [address] Social History Tobacco Use Types Packs/Day Years Used Date Smoking Tobacco: Former Smokeless Tobacco: Never Alcohol Use Standard Drinks/Week Comments Not Currently 0 (1 standard drink = 0.6 oz pur e alcohol) [facility] Utilities Answer Date Recorded In the past 12 months has [employer] electric, gas, oil, or water [employer] threatened to shut off services in your [...] RN - 12/16/2023 11:25 AM EDT Denise, [facility] Cardiac solid state tester, called to report that at today's session [...] AM EDT Office Visit Cardiology at [address] [place] [address] Izaiah Meyer MD [facility] [place] [address] documented as of this encounter Visit Diagnoses Not on filedocumented in this encounter Care Teams Apple Press Operator Relationship Specialty Start Date End Date Masood Pierson MD [address] [place] [address] PCP - General Family Medicine 11/24/23 documented as of this encounter
--- OUTSIDE RECORDS SUMMARY | 2024-02-27 09:53 | XMS_ITS | Encounter Summary ---
Author Organization [facility] Address [facility] [place] [address] Care Team Providers Care Manager Inventory Control Name Role Phone Masood Pierson MD Primary Care Provider Reason for Visit * Reason Comments Establish Care Coronary Artery Disease Encounter Details Date Type Department Care Team (Latest Contact Info) Description 11/24/2023 10:40 AM EDT Office Visit Cardiology at [address] [place] [address] Izaiah Meyer MD [facility] [place] [address] ASCVD (arteriosclerotic cardiovascular disease); Cardiomyopathy, ischemic; Ascending [...] 3.5 x 15 [place] 3.5 x 15 [place] RCA Mid AoCTO. Collats from Cx 4.0 [...] [facility]. SBP very well controlled at home [...] AM EDT Office Visit Cardiology at [address] [place] [phone] Izaiah Meyer MD [facility] [place] [address] documented as of this encounter Visit Diagnoses Diagnosis ASCVD (arteriosclerotic cardiovascular disease) Unspecified cardiovascular disease Cardiomyopathy, ischemic Other specified forms of chronic ischemic heart disease Ascending aorta dilatation Thoracic aortic ectasia Hyperpiesia Unspecified essential hypertension documented in this encounter Care Teams Manager Inventory Control Relationship Specialty Start Date End Date Masood Pierson MD [address] [place] [address] PCP - General Family Medicine 11/24/23 documented as of this encounter
--- OUTSIDE RECORDS SUMMARY | 2024-02-27 09:53 | XMS_ITS | Encounter Summary ---
Author Organization [facility] Address [facility] [place] [address] Care Team Providers Care Permastone Installer Name Role Phone Masood Pierson MD Primary Care Provider [phone] Encounter Details Date Type Department Care Team (Late st Contact Info) Description 02/24/2024 External Results Transfer Center [facility] [place] [phone] Social History Tobacco Use Types Packs/Day Years Used Date Smoking Tobacco: Former Smokeless Tobacco: Never Alcohol Use Standard Drinks/Week Comments Not Currently 0 (1 standard drink = 0.6 oz pur e alcohol) [facility] Utilities Answer Date Recorded In the past 12 months has [employer], gas, oil, or water Robert Applebaum MD threatened to shut off services in your [...] AM EDT Office Visit Cardiology at [address] [place] [address] Izaiah Meyer MD [facility] [place] [address] documented as of this encounter Procedures Procedure Name Priority Date/Time Associated Diagnosis Comments MISC EXTERNAL CARDIOLOGY RESULT Routine 02/24/2024 11:10 PM EDT documented in this encounter Results * External Cardiology Result (02/24/2024 11:10 PM EDT) Anatomical Region Laterality Modality Other Historical Provider EXTERNAL CARDIOLO GY RESULT documented in this encounter Visit Diagnoses Not on filedocumented in this encounter Care Teams Permastone Installer Relationship Specialty Start Date End Date Masood Pierson MD [address] [place] [address] PCP - General Family Medicine 11/24/23 documented as of this encounter
--- OUTSIDE RECORDS SUMMARY | 2024-02-27 09:53 | XMS_ITS | Clinical Summary ---
Author Organization [facility] Address [facility] [place] [address] Care Team Providers Care Credit Risk Modeler Name Role Phone Masood Pierson MD Primary Care Provider [phone] Allergies Active Allergy Reactions Criticality Noted Date [...] Prox 60 Mid 80 3.5 x 15 [place] 3.5 x 15 [place] RCA Mid AoCTO. Collats from Cx 4.0 x 38 [place] NB: RCA initially intervened; Cx 2 days [...] Encounters Date Type Department Care Team Description 02/24/2024 11:10 PM EDT Ancillary Procedure Radiology Library at [facility] [place] [address] Masood Pierson MD Arrived 02/24/2024 External Results Transfer Center [facility] [place] [phone] 12/16/2023 Telephone Cardiology at [address] [place] [address] Izaiah Meyer MD from Last 3 Months Social History Tobacco Use Types Packs/Day Years Used Date Smoking Tobacco: Former Smokeless Tobacco: Never Alcohol Use Standard Drinks/Week Comments Not Currently 0 (1 standard drink = 0.6 oz pur e alcohol) [facility] Utilities Answer Date Recorded In the past 12 months has th e [employer], gas, oil, or water [employer] threatened to shut off services in your [...] AM EDT Office Visit Cardiology at [address] [phone] Izaiah Meyer MD [facility] [place] [address] Health Maintenance Due Date Last [...] CARDIOLOGY RESULT Routine 02/24/2024 11:10 PM EDT FILM LIBRARY STORAGE ONLY CT CHEST Routine 02/24/2024 11:05 PM EDT from Last 3 Months Results * External Cardiology Result (02/24/2024 11:10 PM EDT) Anatomical Region Laterality Modality Other Historical Provider MD EXTERNAL CARDIOLO GY RESULT * Film Library- Storage Only CT Chest (02/24/2024 11:05 PM EDT) Narrative JACKIE - 02/24/2024 11:05 PM EDT This exam is auto-finalizing. It's purpose is for storage only. Masood Pierson MD IMG FILM LIBRARY ORD ERABLES [place], [place] from Last 3 Months Advance Directives * Attempt Cardiopulmonary Resuscitation - Inpatient (Latest Code Status on File) Date Activated Date Inactivated Comments 10/30/2023 9:58 PM 11/03/2023 7:13 PM Question Answer Comments Code Status decision made by: Patient Care Teams Credit Risk Modeler Relationship Specialty Start Date End Date Masood Pierson MD [address] [place] [address] PCP - General Family Medicine 11/24/23
--- OUTSIDE RECORDS SUMMARY | 2024-02-27 09:53 | XMS_ITS | Encounter Summary ---
Author Organization [facility] Address [facility] [place] [address] Care Team Providers Care Auto Body Repair Technician Name Role Phone Masood Pierson MD Primary Care Provider [phone] Encounter Details Date Type Department Care Team (Late st Contact Info) Description 02/24/2024 11:10 PM EDT Ancillary Procedure [place] [phone] Masood Pierson MD [address] [place], [place] [id number] Arrived Social History Tobacco Use Types Packs/Day Years Used Date Smoking Tobacco: Former Smokeless Tobacco: Never Alcohol Use Standard Drinks/Week Comments Not Currently 0 (1 standard drink = 0.6 oz pur e alcohol) [facility] Utilities Answer Date Recorded In the past 12 months has [employer], gas, oil, or water company threatened [...] a long term (including now)? No 11/01/2023 IPV Inpatient Questions [...] AM EDT Office Visit Cardiology at [address] [phone] Izaiah Meyer MD [facility] [place] [place] [address] documented as of this encounter Procedures Procedure Name Priority Date/Time Associated Diagnosis Comments FILM LIBRARY STORAGE ONLY CT CHEST Routine 02/24/2024 11:05 PM EDT documented in this encounter Results * Film Library- Storage Only CT Chest (02/24/2024 11:05 PM EDT) Narrative RAD - 02/24/2024 11:05 PM EDT This exam is auto-finalizing. It's purpose is for storage only. Masood Pierson MD IM FILM LIBRARY ORD ERABLES [place], [place] documented in this encounter Visit Diagnoses Not on filedocumented in this encounter Care Teams Auto Body Repair Technician Relationship Specialty Start Date End Date Masood Pierson MD [address] [place] [address] PCP - General Family Medicine 11/24/23 documented as of this encounter
--- OUTSIDE RECORDS SUMMARY | 2024-02-27 09:53 | XMS_ITS | Encounter Summary ---
Author Organization [facility] Address [facility] [place] [address] Care Team Providers Care Boilermaker Loftsman Name Role Phone Rosie Mathews MD Primary Care Provider [phone] Encounter Details Date Type Department Care Team (Late st Contact Info) Description 11/18/2023 External Results Administration [facility] [place] [address] Social History Tobacco Use Types Packs/Day Years Used Date Smoking Tobacco: Former Smokeless Tobacco: Never Alcohol Use Standard Drinks/Week Comments Not Currently 0 (1 standard drink = 0.6 oz pur e alcohol) [facility] Utilities Answer Date Recorded In the [...] AM EDT Office Visit Cardiology at [address] [phone] Izaiah Meyer MD [facility] [place] [address] documented as of this encounter Procedures Procedure Name Priority Date/Time Associated Diagnosis Comments ECG SCAN Routine 11/18/2023 4:50 PM EDT documented in this encounter Results * Scan Doc: ECG (11/18/2023 4:50 PM EDT) Historical Provider MEDIA MGR SCAN EX T ORDR/RSLT documented in this encounter Visit Diagnoses Not on filedocumented in this encounter Care Teams Boilermaker Loftsman Relationship Specialty Start Date End Date Rosie Mathews MD [address] [place] [address] PCP - General Family Medicine 11/25/17 11/23/23 documented as of this encounter
--- OUTSIDE RECORDS SUMMARY | 2024-02-27 09:53 | XMS_ITS | Encounter Summary ---
Author Organization [facility] Address [facility] [place] [address] Care Team Providers Care Machine Maintenance Servicer Name Role Phone Rosie Mathews MD Primary Care Provider [phone] Reason for Visit * Reason Onset Date Comments Referral 11/03/2023 Coronary Artery Disease 11/03/2023 Encounter Details Date Type Department Care Team (Late st Contact Info) Description 11/03/2023 Telephone Cardiology at [address] [address] Andressa Machado, braille typist; Coronary Artery Disease Social History Tobacco Use Types Packs/Day Years Used Date Smoking Tobacco: Former Smokeless Tobacco: Never Alcohol Use Standard Drinks/Week Comments Not Currently 0 (1 standard drink = 0.6 oz pur e alcohol) [facility] Utilities Answer Date Recorded In the past 12 months has e [employer] gas, oil, or water [employer] threatened to shut off services in your [...] were not included. Heart [facility] V[facility] Clinics [facility] Cardiology Clinic [address] [place] [address] Lyla was referred to this Cardiology clinic in [place] for post cardiac cath 10/31 for STEMI follow up as part of her discharge plan from [facility] documented in this encounter Plan of Treatment Upcoming Encounters Date Type Department Care Team (Late st Contact Info) Description 03/29/2024 11:20 AM EDT Office Visit Cardiology at [address] [place] [address] Izaiah Meyer MD [facility] [place] [address] documented as of this encounter Visit Diagnoses Not on filedocumented in this encounter Care Teams Machine Maintenance Servicer Relationship Specialty Start Date End Date Rosie Mathews MD [address] [place] [address] PCP - General Family Medicine 11/25/17 11/23/23 documented as of this encounter
--- OUTSIDE RECORDS SUMMARY | 2024-02-27 09:53 | XMS_ITS | Encounter Summary ---
Author Organization [facility] Address [facility] [place] [address] Care Team Providers Care Senior Mechanical Estimator Name Role Phone Masood Pierson MD Primary Care Provider [phone] Encounter Details Date Type Department Care Team [...] in a retirement (including now)? No 11/01/2023 DH IPV Inpatient [...] AM EDT Office Visit Cardiology at [address] [address] Izaiah Meyer MD [facility] [place] [address] documented as of this encounter Visit Diagnoses Not on filedocumented in this encounter Care Teams Senior Mechanical Estimator Relationship Specialty Start Date End Date Masood Pierson MD [address] [place] [address] PCP - General Family Medicine 11/24/23 documented as of this encounter
--- OUTSIDE RECORDS SUMMARY | 2024-02-27 09:53 | XMS_ITS | Encounter Summary ---
Author Organization [facility] Address [facility] [place] [address] Care Team Providers Care Note Specialist Name Role Phone Rosie Mathews MD Primary Care Provider [phone] Encounter Details Date Type Department Care Team (Late st Contact Info) Description 11/18/2023 Telephone Cardiology at [address] [address] Cheryl Guzman MD [facility] [place] [address] Social History Tobacco Use Types Packs/Day Years Used Date Smoking Tobacco: Former Smokeless Tobacco: Never Alcohol Use Standard Drinks/Week Comments Not Currently 0 (1 standard drink = 0.6 oz pur e alcohol) [facility] Utilities Answer Date Recorded In the past 12 months has e electric, gas, oil, or water [employer] threatened to shut off services in your [...] a nursing home (including now)? No 11/01/2023 IPV Inpatient Questions [...] [place] Past Medical History: HTN HLD NSTEMI ([facility] 11/02, status-post revasc) Presenting Symptoms per OSH: Llya Goodrich is a 83 y.o. woman who presents to [facility] [place] with an episode of chest pain. Recent admission to [facility] with NSTEMI status-post PCI to [...] today's values. 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 Recommend admission for observation to assess for [...] AM EDT Office Visit Cardiology at [address] [phone] Izaiah Meyer MD [facility] [place] [address] documented as of this encounter Visit Diagnoses Not on filedocumented in this encounter Care Teams Note Specialist Relationship Specialty Start Date End Date Rosie Mathews MD [address] [place] [address] PCP - General Family Medicine 11/25/17 11/23/23 documented as of this encounter
--- OUTSIDE RECORDS SUMMARY | 2024-02-27 09:54 | XMS_ITS | Encounter Summary ---
Author Organization [facility] [place] [address] Care Team Providers Care Telegrapher Agent Name Role Phone Rosie Mathews MD Primary Care Provider [phone] Reason for Visit * Auth/Cert (Routine) Specialty Diagnoses / Procedures Referred By Contbruce t Referred To Contact Diagnoses Unstable angina Chest pain NSTEMI Procedures CARDIAC CATHETERIZATION Rosa Dewey MD [facility] [place] [address] [facility] Referral ID Status Reason Start Date Expiration Date Visits Re quested Visits Authorized [id number] 1 1 Encounter Details Date Type Department Care Team (Late st Contact Info) Description 11/01/2023 3:33 PM EDT - 11/01/2023 5:03 PM EDT Surgery [place] [address] Rosa Dewey MD [facility] [address] [place], [place] [id number] CARDIAC CATHETERIZATION Social History Tobacco Use Types Packs/Day Years Used Date Smoking Tobacco: Former Smokeless Tobacco: Never Alcohol Use Standard Drinks/Week Comments Not Currently 0 (1 standard drink = 0.6 oz pur e alcohol) [facility] Utilities Answer Date Recorded In [...] and hyperlipidemia who presented [place] [facility] [place] from [facility] as a possible STEMI alert with acute onset chest pain. The patient reports that her symptoms initially began on Tuesday when she was walking to [facility] and experienced bilateral arm heaviness while walking with no other symptoms. Then, this afternoon shereports developing bilateral achy shoulder pain and nonradiating substernal left-sided chest pressure that was 7/10 in severity after coming home from denominational. The patient denies any associated fevers, chills, [...] with inferior TRU, although on repeat, her RTU resolved. Cardiology at [facility] was consulted for transfer; the patient was loaded with aspirin 324 mg and ticagrelor 180 mg, started on a heparin drip, and given nitroglycerin with improvement in chest pain. Upon arrival to [facility], the patient was taken directly to the Semiconductor Wafers Marker. Two lesions were discovered: one in the prox RCA (felt to almost be a COMFORT FILLER but they were able to wire, balloon, [...] dose administered prior to arrival in the crime lab analyst. Recommended anti-platelet/anti-thrombotic regimen: Continue aspirin [...] and low lung volumes. Findings similar to loan adviser radiograph from CT 10/30/2023. Pending Studies and [...] 10:40 AM Izaiah Meyer MD Cardiology at [place] Arrive at: [facility] [address] [phone] Future Orders Complete By Expires Referral to Cardiac Rehab [[id number] Custom] As directed Process Instructions: If no progress note charted, please enter Clinical details in comments. Scheduling Instructions: Questions: My question or request is: STEMI. Cardiac rehab at [facility]. Referral to Home Health [[id number] Custom] As directed Process Instructions: If no progress note charted, please enter Clinical details in comments. Scheduling Instructions: Comments: Please evaluate Adin Santos for admission to Home Health. [address] [facility] [address] (home) Date of : 1940 Inpatient DOCUMENTATION FOR VNA SERVICES (INCLUDING THOSE PATIENTS WITH MEDICARE COVERAGE REQUIRING HOME VNA SERVICES AND/OR HOSPICE SERVICES) PATIENT'S LOCATION: Adin Santos [address] [facility] [address] (home) Cell: Telephone Information: Journeyman Welder's Name: self In discussion with the attending physician, it is certified that this patient is under their care and that they, or a Nurse Practitioner, Clinical Nurse specialist or Physician It Program Manager who is working directly with them, [...] regarding health issues HOME HEALTH CARE AGENCY: [facility] [address] [address] START OF CARE: within 24-48 hours of [...] Mathews MD [address] / [facility] [address] . All A agencies which [...] MD / Dr. Masood Pierson [address] [place] [address] 11/09/23 1:55 PM arrival for 2:10 PM appointment International Manager: Izaiah Meyer MD [address] [place] [address] , 11/24/2023 10:40 AM Your Inpatient Medical Team at [facility] Name(s) of your inpatient provider(s): Attending physician: Rosa Hugo MD Resident physicians: Emile Robles MD; Elmer Tamez MD If you have non-emergent questions, prior to your follow-up visit call: Tuesday-Tuesday between the hours of 8AM-5PM please call the Cardiology Clinic [phone] to speak with a nurse. All other hours please call the Hospital Traffic Maintenance Officer [phone] and ask to speak to the turret punch press operator on-call. Your Primary Care Provider Rosie Mathews MD [phone] For questions regarding this document or issues relating to this hospitalization on the Medical Service, please contact your inpatient physician through the [facility] Traffic Maintenance Officer . Issues afterhours and on weekends will be handled by the International Manager staff on-call. Associated attestation - Rosa Hugo [...] MD / Dr. Masood Pierson [address] [place] [address] 11/09/23 1:55 PM arrival for 2:10 PM appointment International Manager: Izaiah Meyer MD [address] [place] [address] , 11/24/2023 10:40 AM Your Inpatient Medical Team at [facility] Name(s) of your inpatient provider(s): Attending physician: Rosa Hugo MD Resident physicians: Emile Robles MD; Elmer Tamez MD If you have non-emergent questions, prior to your follow-up visit call: Tuesday-Tuesday between the hours of 8AM-5PM please call the Cardiology Clinic [phone] to speak with a nurse. All other hours please call the Hospital Traffic Maintenance Officer [phone] and ask to speak to the turret punch press operator on-call. Your Primary Care Provider Rosie Mathews MD [phone] documented in this encounter Medications at Time [...] and hyperlipidemia who presented to [facility] and hyperlipidemia who presented to [facility] a [facility] [...] Resident on Cardiology Service Cardiology S1 (Pager [phone]) Note written in conjunction with Claudio Perla [...] given R femoral access site bruising. Maria Alejadnra Urena MD * Nirmala Webb - 11/01/2023 11:25 AM EDT Enamel Dipper Encounter Note Patient Name: Adin Santos : [id number] MR#: [id number] Admit Date: 10/30/2023 5:11 PM Hospital Day 2 days Narrative: Self initiated visit to patient for Spiritual support in a regular unit rounds. Assessment: Patient is in the bathroom at the time of this visit. Not a good time for County Extension Agent visit. Intervention and Outcome: An attempted visit [...] and hyperlipidemia who presented to [facility] [...] and low lung volumes. Findings similar to loan adviser radiograph from CT 10/30/2023. Scheduled Medications: [AUG [...] and hyperlipidemia who presented to [facility] [...] Resident on Cardiology Service Cardiology S1 (Pager [phone]) Note written in conjunction with Claudio Perla [...] and hyperlipidemia who presented to [facility] [place] a transfer from [facility] as a possible STEMI alert with acute onset chest pain. Active Problems: Active Hospital Problems Diagnosis Unstable angina Resolved Hospital Problems No resolved problems to display. 24 hr events: - Cath'd yesterday with lesion in the proximal RCA (initially thought it was COMFORT FILLER but they were ableto wire, balloon and [...] and low lung volumes. Findings similar to loan adviser radiograph from CT 10/30/2023. TTE (10/30): Interpretation [...] and hyperlipidemia who presented to [facility] a [facility] [...] Resident on Cardiology Service Cardiology S1 (Pager [phone]) Note written in conjunction with Claudio Perla [...] PCP: Rosie Mathews MD PCP phone number: [phone] Date of Admission: 10/30/2023 ( Hospital Day 0 days ) Attending:Rosa Cornejo MD ID: Adin Santos is a 83 y.o. female PMH significant for hypertension and hyperlipidemia who presented to [facility] [place] a transfer from [facility] as a possible STEMI alert with acute onset chest pain. The patient reports that her symptoms initially began on Tuesday when she was walking to [facility] and experienced bilateral arm heaviness while walking with no other symptoms. Then, this afternoon shereports developing bilateral achy shoulder pain and nonradiating substernal left-sided chest pressure that was 7/10 in severity after coming home from denominational. The patient denies any associated fevers, chills, [...] her TRU resolved. Cardiology at [facility] was consulted for transfer; the patient was loaded with aspirin 324 mg and ticagrelor 180 mg, started on a heparin drip, and given nitroglycerin with improvement in chest pain. Upon arrival to [facility], the patient was taken directly to the Semiconductor Wafers Marker. 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 Findings similar to loan adviser radiograph from CT 10/30/2023. Assessment & Plan: Adin Santos is a 83 y.o. female PMH significant for hypertension and hyperlipidemia who presented to [facility] a [facility] [...] HLD transferred with chest from [facility]. BP 217/68, HR [address] [...] information for follow-up Home Health & H[facility]ice, [place] [address] TANESHA BOYCE confirmed with [facility] [address] that they will see the patient within [...] N/A Patient is insured through: Primary Insurance: [employer] MANAGED MEDICARE Payor: [employer] MANAGED MEDICARE / Plan: [employer] MANAGED MEDICARE PPO / Product Type: *No [...] the room. Electrolytes replaced, see MAR. label stamper sites remained C/D/I with baseline ecchymosis unchanged. Pt complained of back pain, lidocaine patch given. Right IV infiltrated during infusion, patient is marked with sharpie, IV removed. See flowsheet for I+O's and safety rounding. Patient is able to make needs known and call capps within reach. PLAN MOVING FORWARD: Monitor Tele, control BP, monitor crime lab analyst sites, D/C Planning INDIVIDUALIZED FALL [...] outpatient cardiac rehabilitation program at [facility] was discussed. Patient agrees to a referral [...] and above on RA. PT went to crime lab analyst today. Left fem site oozed [...] MOVING FORWARD: Monitor Tele, control BP, monitor crime lab analyst sites, D/C Planning INDIVIDUALIZED FALL [...] Transfer from another hospital Location: [facility] Reason for Hospitalization: chest pain Covid Vaccination [...] receiving care in [place] must abide by [place] law. The hierarchy [...] (i) The agent with financial power of securities attorney or a conservator appointed in accordance [...] has the electric, gas, oil, or water [employer] threatened to shut off services in your [...] toilet seat Home Address confirmed as: [address] [facility] [address] Social & Family Supports: All names listed below confirmed with patient as current and correct Extended Emergency Contact Information Primary Emergency Contact: Iris Downing Address: [address] [place], [place] [address] [place] [address] Mobile Relation: Child Secondary Emergency Contact: Karen More Address: [address] [facility] Mobile Relation: Child Current Care Provided by: self Provides Primary Care For: no one Caregiver if needed: child(emmanuel), adult Quality of Family relationships: involved, supportive Community Resources being provided currently: other (see comments) (receives [facility] services at home (1xweekly)) Behavioral Health [...] Specific Information: N/A Health/Prescription Coverage: Primary Insurance: [employer] MANAGED MEDICARE Payor: [employer] MANAGED MEDICARE / Plan: [employer] MANAGED MEDICARE PPO / Product Type: *No Product type* / Secondary Insurance: N/A Prescription Coverage: Yes Preferred Pharmacy: [id number] - [place], [place] - [address] [place] [id number] [place] Status: Patient is a : No Primary Care Provider listed: Masood Pierson MD [phone] Patient/Caregiver Goals of Treatment: home when MR Potential Needs for Transition of Care: home health care Agency Referrals: Not Applicable I have met with the patient to: discuss discharge planning needs. provide the [facility], Office of Care Management letter from the Installation & Maintenance Executive pertaining to rehab referrals. provide a letter describing our affiliations within the [facility] and educate about their right to choose where referrals are sent. provide a list of Home Health Agencies / Durable Medical Equipment vendors which serve their preferred geographic area. provided patient with [facility] Star Quality Rating handout. They have requested referrals to: [facility] [address] [place] [address] Note routed to a Crawler Dragline Operator who will communicate referrals to facilities [...] PO hydralazine added for BP control. label stamper sites remain C/D/I, ecchymosis unchanged th roughout shift. See flowsheet for I+O's and safety rounding. Patient is able to make needs known and call capps within reach. PLAN MOVING FORWARD: Monitor Tele, control CP and BP, NPO at MD for cath, monitor crime lab analyst sites, D/C Planning INDIVIDUALIZED FALL [...] AM EDT Office Visit Cardiology at [address] [place] [address] Izaiah Meyer MD [facility] [place] [address] Scheduled Referrals Name Type Priority Associated Diagnoses [...] 5.28 1.70 - 6.10 x10(3)/mc L [facility] Lymph % 15.2 % [facility] Lymphocytes Abs 1.3 0.9 - 3.2 x10(3)/mc L [facility] Monocyte % 16.9 % [facility] Monocyte Abs 1.4(H) 0.3 - 0.9 x10(3)/mc L [facility] Eos % 3.7 % [facility] Eosinophils Abs 0.3 0.0 - 0.4 x10(3)/ L [facility] Basophil % 0.5 % [facility] Baso Absolute 0.0 0.0 - 0.1 x10(3)/mc L [facility] Immature Gran % 0.40 % [facility] Comment: Immature granulocytes(IG's)percentage and absolute count will include metamyelocytes, myelocytes, and promyelocytes. Blood smears from CBCs yielding IG's will be scanned manually for concordance. If this scan disagrees with the automated IG or if promyelocytes are noted, a manual differential will be performed. Immature Gran Absolute 0.03 0.00 - 0.04 x10(3)/mc L [facility] Blood 11/03/2023 3:46 AM EDT 11/03/2023 4:11 AM EDT Narrative Resulting Agency Comment Spec In Lab Qamar Gallardo MD HEMATOLOGY ORDERABLE S [facility] [place] [address] * (ABNORMAL) Hemogram (11/03/2023 3:46 AM EDT) White Blood Cell 8.3 4.0 - 9.5 x10(3)/mc L [facility] Red Blood Cell 3.77(L) 4.00 - 5.21 x10(6)/mc L [facility] Hemoglobin 13.1 11.7 - 15.5 g/dL [facility] Hematocrit 38.0 35.7 - 45.8 % [facility] Mean Cell Volume 100.8(H) 82.6 - 94.4 fL [facility] Mean Cell Hemoglobin 34.7(H) 27.1 - 32.0 pg [facility] Mean Cell Hemoglobin Concentration 34.5 31.7 - 35.0 g/dL [facility] Platelet 181 145 - 357 x10(3)/mc L [facility] RDW Standard Deviation 54.7(H) 37.0 - 46.0 fL [facility] RDW coefficient of variation 14.6(H) 11.5 - 14.1 % [facility] Mean Platelet Volume 11.2 7.6 - 12.9 fL [facility] NRBC% auto 0.0 % [facility] NRBC Absolute 0.000 0.000 - 0.000 x10(3)/mc L [facility] Blood 11/03/2023 3:46 AM EDT 11/03/2023 4:11 AM EDT Narrative Resulting Agency Comment Spec In Lab Qamar Gallardo MD HEMATOLOGY ORDERABLE S Performing Organization Address City/[facility]/ZIP Co de Phone Number [facility] [place] [address] * Phosphorus (11/03/2023 3:46 AM EDT) Pathologist [facility] Phosphorus 3.2 2.5 - 4.5 mg/dL [facility] Comment:result rechecked-KS Blood 11/03/2023 3:46 AM EDT 11/03/2023 4:11 AM EDT Narrative Resulting Agency Comment Spec In Lab Rosa Cornejo MD CHEMISTRY ORDERABLE S Performing Organization Address [facility] Co de Phone Number [facility] [place] [address] * Magnesium (11/03/2023 3:46 AM EDT) [facility] Magnesium 0.90 0.69 - 1.07 mmol/L [facility] Blood 11/03/2023 3:46 AM EDT 11/03/2023 4:11 AM EDT Narrative Resulting Agency Comment Spec In Lab Rosa Cornejo MD CHEMISTRY ORDERABLE S Performing Organization Address [facility] Co de Phone Number [facility] [place] [address] * (ABNORMAL) Basic Metabolic Panel (non-fasting) (11/03/2023 3:46 AM EDT) Pathologist [facility] Glucose 105 65 - 199 mg/dL [facility] Comment:Diabetes: >=200 mg/d L plus symptoms Blood Urea Nitrogen 13 8 - 18 mg/dL [facility] Creatinine 0.83 0.70 - 1.20 mg/dL [facility] Sodium 139 135 - 145 mmol/L [facility] Potassium 4.0 3.5 - 5.0 mmol/L [facility] Comment: Please note: ??Patients with WBC >100,000 may have falsely elevated Potassium levels. ??For accurate Potassium quantification in these patients send serum separator tube (gold top) for subsequent determinations. ??Contact the Clinical Chemistry Laboratory if there are any questions. Chloride 108(H) 98 - 107 mmol/L [facility] Carbon Dioxide 19(L) 22 - 31 mmol/L [facility] Anion Gap 12 5 - 15 mmol/L [facility] Calcium 8.2(L) 8.5 - 10.5 mg/dL [facility] Est Glomerular Filtration Rate 69 >=60 mL/min/1. 73 m?? [facility] Comment: This patient's estimated GFR [...] Rosa Cornejo MD CHEMISTRY ORDERABLE S [facility] [place] [address] * EKG 12 Lead (11/02/2023 12:44 PM EDT) Ventricular rate 83 BPM MUSE SYSTEM Atrial Rate 83 BPM MUSE SYSTEM P-R Interval 216 ms MUSE SYSTEM QRS Duration 90 ms MUSE SYSTEM Q-T Interval 384 ms MUSE SYSTEM QTC Calculated (Bezet) 451 ms MUSE SYSTEM Calculated P [place] 92 degrees MUSE SYSTEM Calculated R [place]es -51 degrees MUSE SYSTEM Calculated T Ames -33 degrees MUSE SYSTEM INTERPRETATION Sinus rhythm with 1st degree A-V block with Premature atrial complexes Left axis deviation Moderate voltage criteria for LVH, may be normal variant ( R in aVL , Fielding product ) Anterolatera l infarct (cited on [...] volume Bacteria, Urine Many(A) None /HPF [facility] Squamous Epithelial Cells Raw Data, Urine 10(H) <=4 /HPF [facility] Hyaline Casts, Urine 2 0 - 2 /LPF [facility] Comment: Interpret results with caution, microscopic results are from suboptimal specimen volume Clean Catch Urine 11/02/2023 11:40 AM EDT 11/02/2023 12:05 PM EDT Narrative Resulting Agency Comment Spec In Lab Elmer Tamez MD URINE ORDERABLES [facility] [place] [address] * (ABNORMAL) Urinalysis with reflex Culture (11/02/2023 11:40 AM EDT) Glucose, Urine Dipstick Negative Negative mg/dL [facility] Protein, Urine Dipstick 30(A) Negative mg/dL [facility] Bilirubin, Urine Dipstick Negative Negative mg/dL [facility] Comment: Clinical correlation required for positive Urine Bilirubin results as false positive may occur with some drugs and drug related products. If a false positive is suspected a serum total bilirubin should be considered if clinically indicated. Urobilinogen, Urine Dipstick Normal Normal mg/dL [facility] pH, Urn (dipstick) 5.5 5.0 - 8.0 [facility] Blood, Urine Dipstick Negative Negative mg/dL [facility] Ketone, Urine Dipstick Trace(A) Negative mg/dL [facility] Nitrite, Urine Dipstick Positive(A) Negative [facility] Leukocytes, Urine Dipstick Small(A) Negative [facility] Appearance, Urine Dipstick Cloudy(A) Clear [facility] Specific [place] Urine Automated >=1.030(A) 1.005 - 1.030 [facility] Color, Urine Dipstick Dark Yellow Yellow [facility] Reflex to Culture Yes [facility] Clean Catch Urine 11/02/2023 11:40 AM EDT 11/02/2023 12:04 PM EDT Narrative Resulting Agency Comment Spec In Lab Rosa Hugo MD URINE ORDERABLES [facility] [place] [address] * Respiratory Panel PCR (11/02/2023 10:15 AM EDT) Respiratory Panel Source YARN DUMPER Swab [facility] Respiratory Panel PCR Negative Negative [facility] Comment: Respiratory Panels are performed on the [employer], using multiplexed PCR nucleic acid detection. ??Negative results do not preclude respiratory infection and should not be used as the sole basis for diagnosis, treatment or other management decisions. Adenovirus Not Detected Not Detected [facility] Coronavirus HKU1 Not Detected Not Detected [facility] Coronavirus NL63 Not Detected Not Detected [facility] Coronavirus 229E Not Detected Not Detected [facility] Coronavirus OC43 Not Detected Not Detected [facility] SARS-CoV-2 Not Detected Not Detected [facility] Comment: Testing for SARS-CoV-2 (Severe acute respiratory syndrome coronavirus 2) to aid in the diagnosis of COVID-19 is performed using the [employer] Respiratory Panel 2.1 ([employer]) as authorized by the FDA issued Emergency [...] fact sheets at the following FDA website: https://www.fda.gov/medical-devices/kbfhlyrlufh-pqctrqx-9614-dlrmw-10-uqhhawxbv- use-a hsefyxvcrzytx-ssqdsvv-gvqpays/jmbjw-yklmjydfnbc-tzec Human Metapneumovirus Not Detected Not Detected [facility] Human Rhinovirus/Enterov irus Not Detected Not Detected [facility] Influenza A Not Detected Not Detected [facility] Influenza B Not Detected Not Detected [facility] Parainfluenza 1 Not Detected Not Detected [facility] Parainfluenza 2 Not Detected Not Detected [facility] Parainfluenza 3 Not Detected Not Detected [facility] Parainfluenza 4 Not Detected Not Detected [facility] Respiratory Syncytial Virus Not Detected Not Detected [facility] Chlamydophila pneumoniae Not Detected Not Detected [facility] Mycoplasma pneumoniae Not Detected Not Detected [facility] Nasopharyngeal Swab 11/02/19 10:15 AM EDT 11/02/2023 10:49 AM EDT Narrative Resulting Agency Comment Spec In Lab Rosa Hugo MD MICROBIOLOGY - GEN ERAL ORDERABLES [facility] [place] [address] * XR Chest One View (11/02/2023 2:51 AM EDT) WORKSTATION ID [id number] RAD Anatomical Region Laterality Modality Chest N/A [...] who have questions please contact the health vision care associate that requested your imaging first. ? Narrative [...] patients who have questions please contactthe health vision care associate that requested your imaging first. Rosa Hugo MD IMG DX ORDERABLES * (ABNORMAL) Differential, Automated (11/02/2023 12:35 AM EDT) Neutrophil % 76.5 % [facility] Neutrophil Absolute 7.69(H) 1.70 - 6.10 x10(3)/mc L [facility] Lymph % 8.3 % [facility] Lymphocytes Abs 0.8(L) 0.9 - 3.2 x10(3)/mc L [facility] Monocyte % 12.9 % [facility] Monocyte Abs 1.3(H) 0.3 - 0.9 x10(3)/mc L [facility] Eos % 1.4 % [facility] Eosinophils Abs 0.1 0.0 - 0.4 x10(3)/mc L [facility] Basophil % 0.4 % [facility] Baso Absolute 0.0 0.0 - 0.1 x10(3)/mc L [facility] Immature Gran % 0.50 % [facility] Comment: Immature granulocytes(IG's)percentage and absolute count will include metamyelocytes, myelocytes, and promyelocytes. Blood smears from CBCs yielding IG's will be scanned manually for concordance. If this scan disagrees with the automated IG or if promyelocytes are noted, a manual differential will be performed. Immature Gran Absolute 0.05(H) 0.00 - 0.04 x10(3)/mc L [facility] Blood 11/02/2023 12:3 5 AM EDT 11/02/2023 12:43 AM EDT Narrative Resulting Agency Comment Spec In Lab Qamar Gallardo MD HEMATOLOGY ORDERABLE S [facility] [place] [address] * (ABNORMAL) Hemogram (11/02/2023 12:35 AM EDT) White Blood Cell 10.0(H) 4.0 - 9.5 x10(3)/ L [facility] Red Blood Cell 4.06 4.00 - 5.21 x10(6)/mc L [facility] Hemoglobin 13.8 11.7 - 15.5 g/dL [facility] Hematocrit 39.8 35.7 - 45.8 % [facility] Mean Cell Volume 98.0(H) 82.6 - 94.4 fL [facility] Mean Cell Hemoglobin 34.0(H) 27.1 - 32.0 pg [facility] Mean Cell Hemoglobin Concentration 34.7 31.7 - 35.0 g/dL [facility] Platelet 198 145 - 357 x10(3)/mc L [facility] RDW Standard Deviation 52.1(H) 37.0 - 46.0 fL [facility] RDW coefficient of variation 14.3(H) 11.5 - 14.1 % [facility] Mean Platelet Volume 11.4 7.6 - 12.9 fL [facility] NRBC% auto 0.0 % [facility] NRBC Absolute 0.000 0.000 - 0.000 x10(3)/mc L [facility] Blood 11/02/2023 12:3 5 AM EDT 11/02/2023 12:43 AM EDT Narrative Resulting Agency Comment Spec In Lab Qamar Gallardo MD HEMATOLOGY ORDERABLE S [facility] [place] [address] * (ABNORMAL) Phosphorus (11/02/2023 12:35 AM EDT) Phosphorus 1.6(L) 2.5 - 4.5 mg/dL [facility] Blood 11/02/2023 12:3 5 AM EDT 11/02/2023 12:43 AM EDT Narrative Resulting Agency Comment Spec In Lab Rosa Cornejo MD CHEMISTRY ORDERABLE S Performing Organization Address City/[facility]/ZIP Co de Phone Number [facility] [place] [address] * Magnesium (11/02/2023 12:35 AM EDT) Magnesium 0.87 0.69 - 1.07 mmol/L [facility] Blood 11/02/2023 12:3 5 AM EDT 11/02/2023 12:43 AM EDT Narrative Resulting Agency Comment Spec In Lab Rosa Cornejo MD CHEMISTRY ORDERABLE S Performing Organization Address City/[facility]/ZIP Co de Phone Number [facility] [place] [address] * Basic Metabolic Panel (non-fasting) (11/02/2023 12:35 AM EDT) Glucose 125 65 - 199 mg/dL [facility] Comment:Diabetes: >=200 mg/d L plus symptoms Blood Urea Nitrogen 9 8 - 18 mg/dL [facility] Creatinine 0.83 0.70 - 1.20 mg/dL [facility] Sodium 136 135 - 145 mmol/L [facility] Potassium 3.6 3.5 - 5.0 mmol/L [facility] Comment: Please note: ??Patients with WBC >100,000 may have falsely elevated Potassium levels. ??For accurate Potassium quantification in these patients send serum separator tube (gold top) for subsequent determinations. ??Contact the Clinical Chemistry Laboratory if there are any questions. Chloride 102 98 - 107 mmol/L [facility] Carbon Dioxide 25 22 - 31 mmol/L [facility] Anion Gap 9 5 - 15 mmol/L [facility] Calcium 9.0 8.5 - 10.5 mg/dL [facility] Est Glomerular Filtration Rate 69 >=60 mL/min/1. 73 m?? [facility] Comment: This patient's estimated GFR [...] Rosa Cornejo MD CHEMISTRY ORDERABLE S [facility] [place] [address] * Blood culture (11/02/2023 12:35 AM EDT) Blood Culture No growth at 5 days. [facility] Blood 11/02/2023 12:3 5 AM EDT 11/02/2023 1:55 AM EDT Comment:#2 site ukn Narrative Resulting Agency Comment Spec In Lab Rosa Hugo MD MICROBIOLOGY - BLO OD ORDERABLES Performing Organization Address City/[facility]/ZIP Co de Phone Number [facility] [place] [address] * Blood culture (11/02/2023 12:15 AM EDT) Blood Culture No growth at 5 days. [facility] Blood 11/02/2023 12:1 5 AM EDT 11/02/2023 1:54 AM EDT Comment:#1site unk Narrative Resulting Agency Comment Spec In Lab Rosa Hugo MD MICROBIOLOGY - BLO OD ORDERABLES Performing Organization Address [facility] Co de Phone Number [facility] [place] [address] * EKG 12 Lead (11/01/2023 10:10 PM EDT) Ventricular rate 139 BPM MUSE SYSTEM Atrial Rate 139 BPM MUSE SYSTEM P-R Interval 168 ms MUSE SYSTEM QRS Duration 84 ms MUSE SYSTEM Q-T Interval 286 ms MUSE SYSTEM QTC Calculated (Bezet) 435 ms MUSE SYSTEM Calculated R Ames -59 degrees MUSE SYSTEM Calculated T Ames -27 degrees MUSE SYSTEM INTERPRETATION Mid-RP tachycardia, consider sinus tachycardia or SVT Left axis deviation Moderate voltage criteria for LVH, may be normal variant ( R in aVL , Fielding product ) Inferior infarct (cited on or before 01-NOV-2023) Anterolateral infarct (cited on or before 01-NOV-2023) Abnormal ECG When compared with ECG of 01-NOV-2023 15:22, Vent. rate Although rate has increased Serial changes of Anterior infarct Present I personally reviewed the tracing and edited the fellows interpretation Confirmed by fellow MD Bowen Ashley ([id number]) on 11/04/2023 7:57:50 AM Confirmed by MD Carrillo Danette ([id number]) on 11/04/2023 4:32:03 PM MUSE SYSTEM 11/01/2023 10:1 0 PM EDT 11/04/2023 4:32 PM EDT Rosa Cornejo MD ECG ORDERABLES MUSE SYSTEM * (ABNORMAL) Hemogram (11/01/2023 10:06 PM EDT) White Blood Cell 10.4(H) 4.0 - 9.5 x10(3)/mc L [facility] Red Blood Cell 4.11 4.00 - 5.21 x10(6)/mc L [facility] Hemoglobin 14.0 11.7 - 15.5 g/dL [facility] Hematocrit 41.1 35.7 - 45.8 % [facility] Mean Cell Volume 100.0(H) 82.6 - 94.4 fL [facility] Mean Cell Hemoglobin 34.1(H) 27.1 - 32.0 pg [facility] Mean Cell Hemoglobin Concentration 34.1 31.7 - 35.0 g/dL [facility] Platelet 197 145 - 357 x10(3)/mc L [facility] RDW Standard Deviation 54.0(H) 37.0 - 46.0 [facility] RDW coefficient of variation 14.6(H) 11.5 - 14.1 % [facility] Mean Platelet Volume 11.2 7.6 - 12.9 [facility] NRBC% auto 0.0 % [facility] NRBC Absolute 0.000 0.000 - 0.000 x10(3)/mc L [facility] Blood 11/01/2023 10:0 6 PM EDT 11/01/2023 10:22 PM EDT Narrative Resulting Agency Comment Spec In Lab Rosa Hugo MD HEMATOLOGY ORDERAB LES [facility] [place] [id number] * POCT Glucose (11/01/2023 5:59 PM EDT) Glucose, POC 104 65 - 199 mg/dL [facility] Comment: Supplemental ranges: <140 mg/dL before meals <180 mg/dL all other times of the day Blood 11/01/2023 5:59 PM EDT 11/01/2023 5:59 PM EDT Rosa Hugo MD POINT OF CARE TEST ORDERABLES [facility] [place] [address] * POCT Glucose (11/01/2023 5:35 PM EDT) Glucose, POC 85 65 - 199 mg/dL [facility] Comment: Supplemental ranges: <140 mg/dL before meals <180 mg/dL all other times of the day Blood 11/01/2023 5:35 PM EDT 11/01/2023 5:35 PM EDT Rosa Hugo MD POINT OF CARE TEST ORDERABLES [facility] [place] [address] * EKG 12 Lead (11/01/2023 3:22 PM EDT) Ventricular rate 59 BPM MUSE SYSTEM Atrial Rate 59 BPM MUSE SYSTEM P-R Interval 220 ms MUSE SYSTEM QRS Duration 94 ms MUSE SYSTEM Q-T Interval 428 ms MUSE SYSTEM QTC Calculated (Bezet) 423 ms MUSE SYSTEM Calculated P Ames 76 degrees MUSE SYSTEM Calculated R Ames -50 degrees MUSE SYSTEM Calculated T Ames -59 degrees MUSE SYSTEM INTERPRETATION Sinus bradycardia [...] ? Procedure Date: 11/01/2023 ? A #: [id number] ? Primary Physician: Rosa Dewey I ? Case #: [id number] ? File Name: [id number] ? Catheterization Order Number: [id number] ? [facility] ? Final Report [place], [place] ? Patient Name: ? Adin M. Goguen ?ID#: ?[id number] ? : ?1940 ? Procedure Date: ? [...] was designated as ASA Class III. The [facility] clinical ?frailty scale is 4: Vulnerable. [...] procedure was Urgent. The indication for ?the crime lab analyst visit is ACS greater than [...] premounted ? 3.50 x 15 mm Andrea Lonedell (RADHA) was deployed with a maximum ? [...] ? A premounted 3.50 x 15 mm Dike Lonedell (RADHA) was deployed ? with a maximum [...] dose administered prior to arrival in the crime lab analyst. ?Recommended anti-platelet/anti-thrombotic regimen: ?Continue aspirin 81 mg daily for indefinitely. ?Continue clopidogrel 75 mg daily for 12 months then stop. ?These recommendations are made at the time of the intervention. Patient ?and provider preferences or a changing clinical situation may require ?modification of this regimen. [place] [facility] [place] ?questions. [...] Adin Santos Procedure Date: 11/01/2023 A #: [id number] Primary Physician: Rosa Dewey I Case #: [id number] File Name: [id number] Catheterization Order Number: [id number] [facility] FinalReport [place], [place] Patient Name: Adin Santos ID#:[id number] :1940 Procedure Date: November 01, 2023 Case [...] diagnostic procedure was Urgent. The indicationfor the crime lab analyst visit is ACS greater than [...] 14 atmospheres. Apremounted 3.50 x 15 mm Dike Lonedell (RADHA) was deployed with amaximum inflation pressure [...] The lesion was predilated with a 3.00mm [id number] MM balloon with a maximum inflation pressure of 14atmospheres. A premounted 3.50 x 15 mm Andrea Lonedell (RADHA) wasdeployed with a maximum inflation pressure [...] dose administered prior to arrival in the crime lab analyst. Recommended anti-platelet/anti-thrombotic regimen: Continue aspirin 81 mg daily for indefinitely. Continue clopidogrel 75 mg daily for 12 months then stop. These recommendations are made at the time of the intervention.Patient and provider preferences or a changing clinical situation mayrequire modification of this regimen. [place] [facility] [place] [place]iologyfor questions. The [...] POCT Glucose (11/01/2023 7:06 AM EDT) Pathologist [facility] Glucose, POC 93 65 - 199 mg/dL [facility] Comment: Supplemental ranges: <140 mg/dL before meals <180 mg/dL all other times of the day Blood 11/01/2023 7:06 AM EDT 11/01/2023 7:06 AM EDT Jean Laboy MD POINT OF CARE TEST O RDERABLES [facility] [place] [address] * (ABNORMAL) Differential, Automated (11/01/2023 3:09 AM EDT) Neutrophil % 63.9 % [facility] Neutrophil Absolute 5.54 1.70 - 6.10 x10(3)/mc L [facility] Lymph % 20.0 % [facility] Lymphocytes Abs 1.7 0.9 - 3.2 x10(3)/mc L [facility] Monocyte % 11.9 % [facility] Monocyte Abs 1.0(H) 0.3 - 0.9 x10(3)/ L [facility] Eos % 3.2 % [facility] Eosinophils Abs 0.3 0.0 - 0.4 x10(3)/ L [facility] Basophil % 0.5 % [facility] Baso Absolute 0.0 0.0 - 0.1 x10(3)/ L [facility] Immature Gran % 0.50 % [facility] Comment: Immature granulocytes(IG's)percentage and absolute [...] Qamar Gallardo MD HEMATOLOGY ORDERABLE S [facility] [place] [address] * (ABNORMAL) Hemogram (11/01/2023 3:09 AM EDT) White Blood Cell 8.7 4.0 - 9.5 x10(3)/ L [facility] Red Blood Cell 3.72(L) 4.00 - 5.21 x10(6)/[facility] Hemoglobin 12.5 11.7 - 15.5 g/dL [facility] Hematocrit 36.8 35.7 - 45.8 % [facility] Mean Cell Volume 98.9(H) 82.6 - 94.4 fL [facility] Mean Cell Hemoglobin 33.6(H) 27.1 - 32.0 pg [facility] Mean Cell Hemoglobin Concentration 34.0 31.7 - 35.0 g/dL [facility] Platelet 184 145 - 357 x10(3)/mc L [facility] RDW Standard Deviation 53.5(H) 37.0 - 46.0 fL [facility] RDW coefficient of variation 14.6(H) 11.5 - 14.1 % [facility] Mean Platelet Volume 11.3 7.6 - 12.9 fL [facility] NRBC% auto 0.0 % [facility] NRBC Absolute 0.000 0.000 - 0.000 x10(3)/mc L [facility] Blood 11/01/2023 3:09 AM EDT 11/01/2023 3:29 AM EDT Narrative Resulting Agency Comment Spec In Lab Qamar Gallardo MD HEMATOLOGY ORDERABLE S [facility] [place] [address] * Phosphorus (11/01/2023 3:09 AM EDT) Phosphorus 2.5 2.5 - 4.5 mg/dL [facility] Blood 11/01/2023 3:09 AM EDT 11/01/2023 3:29 AM EDT Narrative Resulting Agency Comment Spec In Lab Rosa Cornejo MD CHEMISTRY ORDERABLE S [facility] [place] [address] * Magnesium (11/01/2023 3:09 AM EDT) Magnesium 0.82 0.69 - 1.07 mmol/L [facility] Blood 11/01/2023 3:09 AM EDT 11/01/2023 3:29 AM EDT Narrative Resulting Agency Comment Spec In Lab Rosa Cornejo MD CHEMISTRY ORDERABLE S [facility] [place] [address] * (ABNORMAL) Basic Metabolic Panel (non-fasting) (11/01/2023 3:09 AM EDT) Glucose 100 65 - 199 mg/dL [facility] Comment:Diabetes: >=200 mg/d L plus symptoms Blood Urea Nitrogen 14 8 - 18 mg/dL [facility] Creatinine 0.83 0.70 - 1.20 mg/dL [facility] Sodium 137 135 - 145 mmol/L [facility] Potassium 3.4(L) 3.5 - 5.0 mmol/L [facility] Comment: Please note: ??Patients with WBC >100,000 may have falsely elevated Potassium levels. ??For accurate Potassium quantification in these patients send serum separator tube (gold top) for subsequent determinations. ??Contact the Clinical Chemistry Laboratory if there are any questions. Chloride 105 98 - 107 mmol/L [facility] Carbon Dioxide 24 22 - 31 mmol/L [facility] Anion Gap 8 5 - 15 mmol/L [facility] Calcium 8.6 8.5 - 10.5 mg/dL [facility] Est Glomerular Filtration Rate 69 >=60 mL/min/1. 73 m?? [facility] Comment: This patient's estimated GFR [...] MD CHEMISTRY ORDERABLE S Performing Organization Address City/[facility]/ZIP Co de Phone Number [facility] [place] [address] * (ABNORMAL) Troponin (10/31/2023 2:46 PM EDT) Troponin-T, High Sensitivity 544(H) <=14 ng/L [facility] Comment: This patient's troponin T [...] troponin value can be found in the [facility] Test Catalog Troponin - [facility] Test Catalog Reference: [place] Definition of Myocardial Infarction. Journal of the [employer] 2018;72:0287-1056 Blood 10/31/2023 2:46 PM EDT 10/31/2023 2:55 PM EDT Narrative Resulting Agency Comment Spec In Lab Jean Laboy MD CHEMISTRY ORDERABLES Performing Organization Address City/[facility]/ZIP Co de Phone Number [facility] [place] [address] * EKG 12 Lead (10/31/2023 1:07 PM EDT) Ventricular rate 54 BPM MUSE SYSTEM Atrial Rate 54 BPM MUSE SYSTEM P-R Interval 218 ms MUSE SYSTEM QRS Duration 92 ms MUSE SYSTEM Q-T Interval 540 ms MUSE SYSTEM QTC Calculated (Bezet) 512 ms MUSE SYSTEM Calculated P Ames 85 degrees MUSE SYSTEM Calculated R Ames -44 degrees MUSE SYSTEM Calculated T Ames -69 degrees MUSE SYSTEM INTERPRETATION Sinus bradycardia with 1st degree A-V block Left axis deviation Moderate voltage criteria for LVH, may be normal variant ( R in aVL , Fielding product ) T wave abnormality, consider inferolateral ischemia Prolonged QT Abnormal ECG When compared with ECG of 30-OCT-2023 20:21, Incomplete right bundle branch block is no longer Present Confirmed by MD NEFTALI, CHIDI ([id number]) on 10/31/2023 2:28:46 PM MUSE SYSTEM 10/31/2023 1:07 PM EDT 10/31/2023 2:28 PM EDT Rosa Cornejo MD ECG ORDERABLES MUSE SYSTEM * (ABNORMAL) Troponin (10/31/2023 11:37 AM EDT) Pathologist [facility] Troponin-T, High Sensitivity 580(H) <=14 ng/L [facility] Comment: This patient's troponin T [...] troponin value can be found in the [facility] Test Catalog Troponin - [facility] Test Catalog Reference: [place] Definition of Myocardial Infarction. Journal of the [employer] 2018;72:0627-1936 Blood 10/31/2023 11:3 7 AM EDT 10/31/2023 11:50 AM EDT Narrative Resulting Agency Comment Spec In Lab Rosa Cornejo MD CHEMISTRY ORDERABLE S [facility] [place] [address] * ECHO COMPLETE (10/31/2023 8:52 AM EDT) Anatomical Region Laterality Modality Cardiac Other 10/31/2023 7:57 AM EDT Narrative 10/31/2023 9:45 AM EDT [address] [place] [address] ? Echocardiogram Report Name: TOM ADIN Dorene ? Study Date: 10/31/2023 07:57 AMBP: 106/76 mmHg ? Patient Location: [address] : 1940 ? Height: 163 cm ? Account: [id number] Age: 83 yrs ? Weight: 76 kg Gender: Female ?BSA: 1.8 m2 Ordering Physician: ROSA DEWEY Referring Physician: OMAIRA GIRON Performed By: HAFSA Carmichael Reason For Study: STEMI Interpreting Fellow: Raymond Warren. Exam Location: [facility]. Interpretation Summary -The left [...] is no prior echocardiogram for comparison. Procedure Complete-50943. Satisfactory quality. There is sinus bradycardia. Left [...] Note Edgard Wang MD - 10/31/2023 [address] [place] [address] Echocardiogram Report Name: ADIN SANTOS Study Date: 407:57 AMBP: 106/76 mmHg Patient Location: [address] : 1940 Height: 163 cm Account: [id number] Age: 83 yrs Weight: 76 kg Gender: Female BSA: 1.8 m2 Ordering Physician: ROSA DEWEY Referring Physician: OMAIRA GIRON Performed By: HAFSA Carmichael Reason For Study: STEMI Interpreting Fellow: Raymond Warren. Exam Location: [facility]. Interpretation Summary -The left [...] is no prior echocardiogram for comparison. Procedure Complete-43268. Satisfactory quality. There is sinus bradycardia. Left [...] * (ABNORMAL) Troponin (10/31/2023 8:51 AM EDT) [facility] Troponin-T, High Sensitivity 571(H) <=14 ng/L [facility] Comment: This patient's troponin T [...] troponin value can be found in the [facility] Test Catalog Troponin - [facility] Test Catalog Reference: [place] Definition of Myocardial Infarction. Journal of the [employer] 2018;72:1238-3704 Blood 10/31/2023 8:51 AM EDT 10/31/2023 9:12 AM EDT Narrative Resulting Agency Comment Spec In Lab Rosa Cornejo MD CHEMISTRY ORDERABLE S Performing Organization Address [facility] Co de Phone Number [facility] [place] [address] * CARDIAC CATHETERIZATION (10/31/2023 8:10 AM EDT) Anatomical Region Laterality Modality Other Narrative 11/07/2023 9:42 AM EDT [facility] Cardiac [facility]ter[facility]/Intervention Report ? Patient Name: Adin Santos ? Procedure Date: 10/30/2023 ? A #: [id number] ? Primary Physician: Rosa Dewey I ? Case #: [id number] ? File Name: [id number] ? Catheterization Order Number: [id number] ? [facility] ? Final Report [place], [place] ? Patient Name: ? Adin M. Goguen ?ID#: ?[id number] ? : ?1940 ? Procedure Date: ? [...] was designated as ASA Class III. The [facility] clinical frailty scale ?is 5: Mildly [...] procedure was Emergent. The indication for ?the crime lab analyst visit is ACS less than [...] ? A premounted 4.00 x 38 mm Dike Lonedell (RADHA) was deployed ? with a maximum [...] dose administered prior to arrival in the crime lab analyst. ?Recommended anti-platelet/anti-thrombotic regimen: ?Continue aspirin 81 mg daily for 12 months then stop. ?Continue clopidogrel 75 mg daily for indefinitely. ?These recommendations are made at the time of the intervention. Patient ?and provider preferences or a changing clinical situation may require ?modification of this regimen. [place] [facility] [place] ?questions. [...] Adin Santos Procedure Date: 10/30/2023 A #: [id number] Primary Physician: Rosa Dewey I Case #: [id number] File Name: [id number] Catheterization Order Number: [id number] [facility] FinalReport [place], [place] Patient Name: Adin Santos ID#:[id number] :[id number] Procedure Date: October 30, 2023 Case [...] was designated as ASA Class III. The [facility] clinical frailtyscale is 5: Mildly Frail. Diagnostic Tests: Electrocardiography: EKG was assessed by ECG. EKG was Abnormal. EKG showed STDeviation >= 0.5 mm, other abnormality and dynamic EKG changes. Medications Prior to Procedure: Aspirin, Angiotensin II Receptor Rodrick, Beta Rodrick andStatin. Indications for Diagnostic Cath: The priority of the diagnostic procedure was Emergent. Theindication for the crime lab analyst visit is ACS less than [...] The priority for the procedure was Emergent.The [facility] indication for the procedure was [...] A premounted 4.00 x 38 mm Andrea Lonedell (RADHA) wasdeployed with a maximum inflation pressure [...] dose administered prior to arrival in the crime lab analyst. Recommended anti-platelet/anti-thrombotic regimen: Continue aspirin 81 mg daily for 12 months then stop. Continue clopidogrel 75 mg daily for indefinitely. These recommendations are made at the time of the intervention.Patient and provider preferences or a changing clinical situation mayrequire modification of this regimen. [place] [facility] [place] questions. Conclusions: [...] * (ABNORMAL) Troponin (10/31/2023 4:21 AM EDT) [facility] Troponin-T, High Sensitivity 457(H) <=14 ng/L [facility] Comment: This patient's troponin T [...] troponin value can be found in the [facility] Test Catalog Troponin - [facility] Test Catalog Reference: Fourth [place] Definition of Myocardial Infarction. Journal of the [employer] 2018;72:9295-0972 Blood 10/31/2023 4:21 AM EDT 10/31/2023 4:30 AM EDT Narrative Resulting Agency Comment Spec In Lab Rosa Cornejo MD CHEMISTRY ORDERABLE S Performing Organization Address City/State/[facility] Co de Phone Number [facility] [place] [address] * (ABNORMAL) Differential, Automated (10/31/2023 3:05 AM EDT) Neutrophil % 71.7 % [facility] Neutrophil Absolute 8.21(H) 1.70 - 6.10 x10(3)/mc L [facility] Lymph % 16.9 % [facility] Lymphocytes Abs 1.9 0.9 - 3.2 x10(3)/mc L [facility] Monocyte % 9.4 % [facility] Monocyte Abs 1.1(H) 0.3 - 0.9 x10(3)/mc L [facility] Eos % 1.3 % [facility] Eosinophils Abs 0.2 0.0 - 0.4 x10(3)/mc L [facility] Basophil % 0.4 % [facility] Baso Absolute 0.0 0.0 - 0.1 x10(3)/mc L [facility] Immature Gran % 0.30 % [facility] Comment: Immature granulocytes(IG's)percentage and absolute count will include metamyelocytes, myelocytes, and promyelocytes. Blood smears from CBCs yielding IG's will be scanned manually for concordance. If this scan disagrees with the automated IG or if promyelocytes are noted, a manual differential will be performed. Immature Gran Absolute 0.04 0.00 - 0.04 x10(3)/ L [facility] Blood 10/31/2023 3:05 AM EDT 10/31/2023 3:13 AM EDT Narrative Resulting Agency Comment Spec In Lab Qamar Gallardo MD HEMATOLOGY ORDERABLE S [facility] [place] [address] * (ABNORMAL) Hemogram (10/31/2023 3:05 AM EDT) White Blood Cell 11.5(H) 4.0 - 9.5 x10(3)/ L [facility] Red Blood Cell 3.75(L) 4.00 - 5.21 x10(6)/mc L [facility] Hemoglobin 12.6 11.7 - 15.5 g/dL [facility] Hematocrit 37.1 35.7 - 45.8 % [facility] Mean Cell Volume 98.9(H) 82.6 - 94.4 fL [facility] Mean Cell Hemoglobin 33.6(H) 27.1 - 32.0 pg [facility] Mean Cell Hemoglobin Concentration 34.0 31.7 - 35.0 g/dL [facility] Platelet 206 145 - 357 x10(3)/mc L [facility] RDW Standard Deviation 53.4(H) 37.0 - 46.0 fL [facility] RDW coefficient of variation 14.6(H) 11.5 - 14.1 % [facility] Mean Platelet Volume 11.1 7.6 - 12.9 fL [facility] NRBC% auto 0.0 % [facility] NRBC Absolute 0.000 0.000 - 0.000 x10(3)/mc L [facility] Blood 10/31/2023 3:05 AM EDT 10/31/2023 3:13 AM EDT Narrative Resulting Agency Comment Spec In Lab Qamar Gallardo MD HEMATOLOGY ORDERABLE S Performing Organization Address [facility] de Phone Number [facility] [place] [address] * (ABNORMAL) APTT (10/31/2023 3:05 AM EDT) Partial Thromboplastin Time 67(H) 25 - 37 sec [facility] Comment: The PTT is NOT appropriate for heparin monitoring. Use the Anti-Xa level for heparin monitoring (HEP UFH) or LMWH monitoring (HEP LMW). A PTT less than 37 seconds generally indicates adequate hemostasis. Blood 10/31/2023 3:05 AM EDT 10/31/2023 3:13 AM EDT Narrative Resulting Agency Comment Spec In Lab Rosa Cornejo MD HEMATOLOGY ORDERABL ES Performing Organization Address [facility]/[place] de Phone Number [facility] [place] [address] * (ABNORMAL) Prothrombin Time (10/31/2023 3:05 AM EDT) Prothrombin Time 12.6(H) 9.4 - 12.5 sec [facility] International Normalization Ratio 1.1 [facility] Comment: An INR <2.0 indicates [...] Resulting Agency Comment Spec In Lab Rosa Corneoj MD HEMATOLOGY ORDERABL ES [facility] [place] [address] * (ABNORMAL) Differential, Automated (10/31/2023 1:37 AM EDT) Neutrophil % 71.1 % [facility] Neutrophil Absolute 7.53(H) 1.70 - 6.10 x10(3)/mc L [facility] Lymph % 18.0 % [facility] Lymphocytes Abs 1.9 0.9 - 3.2 x10(3)/ L [facility] Monocyte % 8.7 % [facility] Monocyte Abs 0.9 0.3 - 0.9 x10(3)/mc L [facility] Eos % 1.6 % [facility] Eosinophils Abs 0.2 0.0 - 0.4 x10(3)/mc L [facility] Basophil % 0.4 % [facility] Baso Absolute 0.0 0.0 - 0.1 x10(3)/mc L [facility] Immature Gran % 0.20 % [facility] Comment: Immature granulocytes(IG's)percentage and absolute count will include metamyelocytes, myelocytes, and promyelocytes. Blood smears from CBCs yielding IG's will be scanned manually for concordance. If this scan disagrees with the automated IG or if promyelocytes are noted, a manual differential will be performed. Immature Gran Absolute 0.02 0.00 - 0.04 x10(3)/mc L [facility] Blood 10/31/2023 1:37 AM EDT 10/31/2023 1:46 AM EDT Narrative Resulting Agency Comment Spec In Lab Qamar Gallardo MD HEMATOLOGY ORDERABLE S [facility] [place] [address] * (ABNORMAL) Hemogram (10/31/2023 1:37 AM EDT) White Blood Cell 10.6(H) 4.0 - 9.5 x10(3)/mc L [facility] Red Blood Cell 3.78(L) 4.00 - 5.21 x10(6)/mc L [facility] Hemoglobin 13.0 11.7 - 15.5 g/dL [facility] Hematocrit 37.9 35.7 - 45.8 % [facility] Mean Cell Volume 100.3(H) 82.6 - 94.4 fL [facility] Mean Cell Hemoglobin 34.4(H) 27.1 - 32.0 pg [facility] Mean Cell Hemoglobin Concentration 34.3 31.7 - 35.0 g/dL [facility] Platelet 204 145 - 357 x10(3)/mc L [facility] RDW Standard Deviation 54.3(H) 37.0 - 46.0 fL [facility] RDW coefficient of variation 14.6(H) 11.5 - 14.1 % [facility] Mean Platelet Volume 11.1 7.6 - 12.9 fL [facility] NRBC% auto 0.0 % [facility] NRBC Absolute 0.000 0.000 - 0.000 x10(3)/mc L [facility] Blood 10/31/2023 1:37 AM EDT 10/31/2023 1:46 AM EDT Narrative Resulting Agency Comment Spec In Lab Qamar Gallardo MD HEMATOLOGY ORDERABLE S [facility] [place] [address] * Phosphorus (10/31/2023 1:37 AM EDT) Phosphorus 3.2 2.5 - 4.5 mg/dL [facility] Blood 10/31/2023 1:37 AM EDT 10/31/2023 1:46 AM EDT Narrative Resulting Agency Comment Spec In Lab Rosa Cornejo MD CHEMISTRY ORDERABLE S Performing Organization Address City/[facility]/ZIP Co de Phone Number [facility] [place] [address] * Magnesium (10/31/2023 1:37 AM EDT) Magnesium 0.83 0.69 - 1.07 mmol/L [facility] Blood 10/31/2023 1:37 AM EDT 10/31/2023 1:46 AM EDT Narrative Resulting Agency Comment Spec In Lab Rosa Cornejo MD CHEMISTRY ORDERABLE S Performing Organization Address City/[facility]/ZIP Co de Phone Number [facility] [place] [address] * Basic Metabolic Panel (non-fasting) (10/31/2023 1:37 AM EDT) Glucose 114 65 - 199 mg/dL [facility] Comment:Diabetes: >=200 mg/d L plus symptoms Blood Urea Nitrogen 13 8 - 18 mg/dL [facility] Creatinine 0.81 0.70 - 1.20 mg/dL [facility] Sodium 140 135 - 145 mmol/L [facility] Potassium 3.9 3.5 - 5.0 mmol/L [facility] Comment: Please note: ??Patients with WBC >100,000 may have falsely elevated Potassium levels. ??For accurate Potassium quantification in these patients send serum separator tube (gold top) for subsequent determinations. ??Contact the Clinical Chemistry Laboratory if there are any questions. Chloride 107 98 - 107 mmol/L [facility] Carbon Dioxide 25 22 - 31 mmol/L [facility] Anion Gap 8 5 - 15 mmol/L [facility] Calcium 8.6 8.5 - 10.5 mg/dL [facility] Est Glomerular Filtration Rate 72 >=60 mL/min/1. 73 m?? [facility] Comment: This patient's estimated GFR [...] Rosa Cornejo MD CHEMISTRY ORDERABLE S [facility] [place] [address] * (ABNORMAL) Troponin (10/31/2023 1:37 AM EDT) Troponin-T, High Sensitivity 329(H) <=14 ng/L [facility] Comment: This patient's troponin T [...] troponin value can be found in the [facility] Test Catalog Troponin - [facility] Test Catalog Reference: Fourth [place] Definition of Myocardial Infarction. Journal of the [employer] 2018;72:0507-9620 Blood 10/31/2023 1:37 AM EDT 10/31/2023 1:46 AM EDT Narrative Resulting Agency Comment Spec In Lab Rosa Cornejo MD CHEMISTRY ORDERABLE S Performing Organization Address City/[facility]/[place] [address] * EKG 12 Lead (10/31/2023 1:20 AM EDT) Ventricular rate 52 BPM MUSE SYSTEM Atrial Rate 52 BPM MUSE SYSTEM P-R Interval 224 ms MUSE SYSTEM QRS Duration 108 ms MUSE SYSTEM Q-T Interval 544 ms MUSE SYSTEM QTC Calculated (Bezet) 505 ms MUSE SYSTEM Calculated P [place] 90 degrees MUSE SYSTEM Calculated R [place] -57 degrees MUSE SYSTEM Calculated [place] -63 degrees MUSE SYSTEM INTERPRETATION Sinus bradycardia [...] (Bezet) 497 ms MUSE SYSTEM Calculated [place] 75 degrees MUSE SYSTEM Calculated R [place] -53 degrees MUSE SYSTEM Calculated T [place] -57 degrees MUSE SYSTEM INTERPRETATION Sinus bradycardia [...] View (10/30/2023 10:10 PM EDT) WORKSTATION ID [id number] DH RAD Anatomical Region Laterality Modality Chest [...] and low lung volumes. Findings similar to loan adviser radiograph from CT 10/30/2023. Thank you for letting us participate in the care of this patient. ??If you are a health care provider and have any questions regarding this report, please contact the number below. ??For patients who have questions please contact the health vision care associate that requested your imaging first. ? Electronically signed by: Wilson Mccartney MD, [facility] ([phone]), at 10/30/2023 10:32 PM Narrative 10/30/2023 10:32 [...] and low lung volumes. Findings similar to loan adviser radiograph from CT 10/30/2023. Thank you for letting us participate in the care of this patient. If youare a health care provider and have any questions regarding this report,please contact the number below. For patients who have questions please contactthe health vision care associate that requested your imaging first. Rosa Cornejo MD IMG DX ORDERABLES * Green Tube HOLD (10/30/2023 10:05 PM EDT) [facility] Green Hold Sample in lab. [facility] Blood Venous Draw / Unknown 10/30/2023 10:05 PM EDT 10/30/2023 10:13 PM EDT Qamar Gallardo MD CHEMISTRY ORDERABLES [facility] [place] [address] * (ABNORMAL) Differential, Automated (10/30/2023 10:05 PM EDT) Pathologist [facility] Neutrophil % 76.6 % [facility] Neutrophil Absolute 6.94(H) 1.70 - 6.10 x10(3)/mc L [facility] Lymph % 15.4 % [facility] Lymphocytes Abs 1.4 0.9 - 3.2 x10(3)/mc L [facility] Monocyte % 6.1 % [facility] Monocyte Abs 0.6 0.3 - 0.9 x10(3)/mc L [facility] Eos % 1.1 % [facility] Eosinophils Abs 0.1 0.0 - 0.4 x10(3)/mc L [facility] Basophil % 0.6 % [facility] Baso Absolute 0.0 0.0 - 0.1 x10(3)/mc L [facility] Immature Gran % 0.20 % [facility] Comment: Immature granulocytes(IG's)percentage and absolute count will include metamyelocytes, myelocytes, and promyelocytes. Blood smears from CBCs yielding IG's will be scanned manually for concordance. If this scan disagrees with the automated IG or if promyelocytes are noted, a manual differential will be performed. Immature Gran Absolute 0.02 0.00 - 0.04 x10(3)/ L [facility] Blood 10/30/2023 10:0 5 PM EDT 10/30/2023 10:12 PM EDT Narrative Resulting Agency Comment Spec In Lab Qamar Gallardo MD HEMATOLOGY ORDERABLE S Performing Organization Address City/State/[facility] Co de Phone Number [facility] [place] [address] * (ABNORMAL) Hemogram (10/30/2023 10:05 PM EDT) White Blood Cell 9.0 4.0 - 9.5 x10(3)/ L [facility] Red Blood Cell 3.96(L) 4.00 - 5.21 x10(6)/mc L [facility] Hemoglobin 13.3 11.7 - 15.5 g/dL [facility] Hematocrit 39.1 35.7 - 45.8 % [facility] Mean Cell Volume 98.7(H) 82.6 - 94.4 fL [facility] Mean Cell Hemoglobin 33.6(H) 27.1 - 32.0 pg [facility] Mean Cell Hemoglobin Concentration 34.0 31.7 - 35.0 g/dL [facility] Platelet 211 145 - 357 x10(3)/mc L [facility] RDW Standard Deviation 53.6(H) 37.0 - 46.0 fL [facility] RDW coefficient of variation 14.6(H) 11.5 - 14.1 % [facility] Mean Platelet Volume 11.1 7.6 - 12.9 fL [facility] NRBC% auto 0.0 % [facility] NRBC Absolute 0.000 0.000 - 0.000 x10(3)/mc L [facility] Blood 10/30/2023 10:0 5 PM EDT 10/30/2023 10:12 PM EDT Narrative Resulting Agency Comment Spec In Lab Qamar Gallardo MD HEMATOLOGY ORDERABLE S Performing Organization Address City/[facility]/ZIP Co de Phone Number [facility] [place] [address] * Hemoglobin A1c (10/30/2023 10:05 PM EDT) Hemoglobin A1c 5.5 4.3 - 5.6 % [facility] Comment: Reference Range: 4.3 - [...] Estimated Average Glucose See note mg/dL [facility] Comment: Estimated Average Glucose not appropriate for patients over 70 years of age. Blood 10/30/2023 10:0 5 PM EDT 10/30/2023 10:12 PM EDT Narrative Resulting Agency Comment Spec In Lab Rosa Cornejo MD CHEMISTRY ORDERABLE S [facility] [place] [address] * Lipid Panel (Reflex Direct LDL) (10/30/2023 10:05 PM EDT) [facility] Cholesterol, Total 218 mg/dL [facility] Comment: Desirable: ? <200 mg/dL Borderline High: 200-239 mg/dL Higher: ?>vy=436 mg/dL Triglyceride 46 mg/dL [facility] Comment: Normal: ?<150 mg/dL Borderline High: 150-199 mg/dL High: ?200-499 mg/dL Very High: ? >ng=430 mg/dL HDL Cholesterol 64 mg/dL [facility] Comment: Females: High Risk: <50 mg/dL Males: High Risk: <40 mg/dL LDL Cholesterol 145 mg/dL [facility] Comment: Desirable: ? <100 mg/dL Above Desirable: 100-129 mg/dL Borderline High: 130-159 mg/dL High: ?160-189 mg/dL Very High: ? >xp=068 mg/dL Lipid Interpretation See Note [facility] Comment: It is important to [...] individuals with atherosclerotic cardiovascular disease (ASCVD)or LDL >qh=180 mg/dL, use a high-intensity statin (40-80 mg [...] CHEMISTRY ORDERABLE S Performing Organization Address [facility] Co de Phone Number [facility] [place] [address] * TSH [place] (10/30/2023 10:05 PM EDT) Thyroid Stimulating Hormone 3.35 0.27 - 4.20 mcIU/mL [facility] Comment: Reference Interval (mcIU/mL): Females: ??First Trimester: 0.23-3.88 ??Second Trimester: 0.22-3.90 ??Third Trimester: 0.44-4.66 Blood 10/30/2023 10:0 5 PM EDT 10/30/2023 10:12 PM EDT Narrative Resulting Agency Comment Spec In Lab Rosa Cornejo MD CHEMISTRY ORDERABLE S Performing Organization Address [facility]/ZIP Co de Phone Number [facility] [place] [address] * pro-Brain Natriuretic Peptide (10/30/2023 10:05 PM EDT) NT-proBNP 375 <=449 pg/mL [facility] Blood 10/30/2023 10:0 5 PM EDT 10/30/2023 10:12 PM EDT Narrative Resulting Agency Comment Spec In Lab Rosa Cornejo MD CHEMISTRY ORDERABLE S [facility] [place] [address] * (ABNORMAL) Comprehensive metabolic panel (non-fasting) (10/30/2023 10:05 PM EDT) Pathologist [facility] Glucose 121 65 - 199 mg/dL [facility] Comment:Diabetes: >=200 mg/d L plus symptoms Blood Urea Nitrogen 14 8 - 18 mg/dL [facility] Creatinine 0.85 0.70 - 1.20 mg/dL [facility] Sodium 142 135 - 145 mmol/L [facility] Potassium 3.9 3.5 - 5.0 mmol/L [facility] Comment: Please note: ??Patients with WBC >100,000 may have falsely elevated Potassium levels. ??For accurate Potassium quantification in these patients send serum separator tube (gold top) for subsequent determinations. ??Contact the Clinical Chemistry Laboratory if there are any questions. Chloride 105 98 - 107 mmol/L [facility] Carbon Dioxide 27 22 - 31 mmol/L [facility] Anion Gap 10 5 - 15 mmol/L [facility] Calcium 8.8 8.5 - 10.5 mg/dL [facility] Protein, Total 6.5 6.1 - 8.0 g/dL [facility] Albumin 4.2 3.2 - 5.2 g/dL [facility] Aspartate Aminotransferase 36(H) 0 - 30 unit/L [facility] Alanine Aminotransferase 17 0 - 30 unit/L [facility] Alkaline Phosphatase 54 35 - 105 unit/L [facility] Bilirubin, Total 0.5 0.2 - 1.3 mg/dL [facility] Est Glomerular Filtration Rate 68 >=60 mL/min/1. 73 m?? [facility] Comment: This patient's estimated GFR [...] MD CHEMISTRY ORDERABLE S Performing Organization Address City/[facility]/ZIP Co de Phone Number [facility] [place] [address] * Phosphorus (10/30/2023 10:05 PM EDT) Phosphorus 3.3 2.5 - 4.5 mg/dL [facility] Blood 10/30/2023 10:0 5 PM EDT 10/30/2023 10:12 PM EDT Narrative Resulting Agency Comment Spec In Lab Rosa Cornejo MD CHEMISTRY ORDERABLE S [facility] [place] [address] * Magnesium (10/30/2023 10:05 PM EDT) Magnesium 0.86 0.69 - 1.07 mmol/L [facility] Blood 10/30/2023 10:0 5 PM EDT 10/30/2023 10:12 PM EDT Narrative Resulting Agency Comment Spec In Lab Rosa Cornejo MD CHEMISTRY ORDERABLE S Performing Organization Address City/[facility]/ZIP Co de Phone Number [facility] [place] [address] * (ABNORMAL) Troponin (10/30/2023 10:05 PM EDT) Troponin-T, High Sensitivity 214(H) <=14 ng/L [facility] Comment: This patient's troponin T [...] troponin value can be found in the [facility] Test Catalog Troponin - [facility] Test Catalog Reference: Fourth [place] Definition of Myocardial Infarction. Journal of the [employer] 2018;72:9750-3802 Blood 10/30/2023 10:0 5 PM EDT 10/30/2023 10:12 PM EDT Narrative Resulting Agency Comment Spec In Lab Rosa Cornejo MD CHEMISTRY ORDERABLE S Performing Organization Address City/[facility]/ZIP Co de Phone Number [facility] [place] [address] * EKG 12 Lead (10/30/2023 8:21 PM EDT) Ventricular rate 49 BPM MUSE SYSTEM Atrial Rate 49 BPM MUSE SYSTEM P-R Interval 230 ms MUSE SYSTEM QRS Duration 96 ms MUSE SYSTEM Q-T Interval 526 ms MUSE SYSTEM QTC Calculated (Bezet) 475 ms MUSE SYSTEM Calculated P [place] 98 degrees MUSE SYSTEM Calculated R Ames -48 degrees MUSE SYSTEM Calculated T Ames -51 degrees MUSE SYSTEM INTERPRETATION Sinus bradycardia [...] Transfer to a Procedural area)1548 ([facility] Unhold - Provider: Admin Adt) [...] Parisa Kowalski RN)1439 (Given - Provider: Jean Olvieira RN) hydrALAZINE (Apresoline) (20 mg/mL) injection 10 [...] Transfer to a Procedural area)1548 ([facility] Unhold - Provider: Admin Adt) [...] documented as of this encounter Care Teams Telegrapher Agent Relationship Specialty Start Date End Date Rosie Mathews MD [address] [place] [phone] PCP - General Family Medicine 11/25/17 11/23/23 documented as of this encounter
--- OUTSIDE RECORDS SUMMARY | 2024-02-27 09:54 | XMS_ITS | Encounter Summary ---
Author Organization [facility] [place] [address] Care Team Providers Care Armament Mechanic Name Role Phone Rosie Mathews MD Primary Care Provider [phone] Encounter Details Date Type Department Care Team (Late st Contact Info) Description 10/30/2023 5:00 PM EDT Ancillary Procedure [place] [id number] Izaiah Meyer MD [facility] [place] [address] Social History Tobacco Use Types Packs/Day Years [...] AM EDT Office Visit Cardiology at [address] [address] Izaiah Meyer MD [facility] [place] [address] documented as of this encounter Procedures Procedure Name Priority Date/Time Associated Diagnosis Comments FILM LIBRARY STORAGE ONLY CT CHEST Routine 10/30/2023 4:59 PM EDT documented in this encounter Results * Film Library- Storage Only CT Chest (10/30/2023 4:59 PM EDT) Narrative [facility] 10/30/2023 4:59 PM EDT This exam is auto-finalizing. It's purpose is for storage only. Izaiah Meyer MD IMG FILM LIBRARY ORD ERABLES Performing Organization Address City/State/[facility] Co de Phone Number [place], [place] documented in this encounter Visit Diagnoses Not on filedocumented in this encounter Care Teams Armament Mechanic Relationship Specialty Start Date End Date Rosie Mathews MD [address] [place] [address] PCP - General Family Medicine 11/25/17 11/23/23 documented as of this encounter
--- OUTSIDE RECORDS SUMMARY | 2024-02-27 09:54 | XMS_ITS | Encounter Summary ---
Author Organization [facility] [place] [address] Care Team Providers Care Promotional Advertising Assistant Name Role Phone Rosie Mathews MD Primary Care Provider [phone] Reason for Visit * Auth/Cert (Routine) Specialty Diagnoses / Procedures Referred By Contac t Referred To Contact Diagnoses Unstable angina Procedures [place] [employer] [place] [employer] [facility] [facility] Referral ID Status Reason Start Date Expiration Date Visits Re quested Visits Authorized [id number] 1 1 Encounter Details Date Type Department Care Team (Latest Contact Info) Description 10/30/2023 5:00 PM EDT - 10/30/2023 5:10 PM EDT Hospital [place] [phone] Rosa Menjivar MD [facility] [place] [address] Discharge Disposition: Home Social History Tobacco Use Types Packs/Day Years Used Date Smoking Tobacco: Former Smokeless Tobacco: Never Alcohol Use Standard Drinks/Week Comments Not Currently 0 (1 standard drink = 0.6 oz pur e alcohol) [facility] Inpatient Questions Answer Date Recorded [...] AM EDT Office Visit Cardiology at [address] [place] [address] Izaiah Meyer MD [facility] [place] [address] documented as of this encounter Visit Diagnoses Not on filedocumented in this encounter Care Teams Promotional Advertising Assistant Relationship Specialty Start Date End Date Rosie Mathews MD [address] [place] [address] PCP - General Family Medicine 11/25/17 11/23/23 documented as of this encounter
--- OUTSIDE RECORDS SUMMARY | 2024-02-27 09:55 | XMS_ITS | Encounter Summary ---
Author Organization [facility] Address [facility] [place] [address] Care Team Providers Care Briquette Machine Operator Name Role Phone Rosie Mathews MD Primary Care Provider [phone] Reason for Visit * Reason Comments Skin Lesion * Consultation (Routine) - Closed Specialty Diagnoses / Procedures Referred By John hunt Referred To Contact Dermatology Diagnoses facial skin lesion Procedures pt would like to be seen PRADEEP Rosie Mathews MD [address] [place] [address] [facility] [address] [place] [address] Referral ID Status Reason Start Date Expiration Date V isits Requested Visits Authorized [id number] Closed Consult, Test & Treat [facility] 10/25/2017 10/25/2018 1 1 Encounter Details Date Type Department Care Team (Late st Contact Info) Description 11/25/2017 4:30 PM EDT Office Visit Dermatology at [facility] [address] [place] [address] Call, Radu Go MD [facility] [address] [facility] [address] Seborrheic keratosis; Fibrous papule of [...] by Radu Tom MD Resident in Dermatology [facility] Patient seen in conjunction with staff entertainer or variety artist: Terri Hale MD Section of Dermatology [facility] * Terri Hale MD - [...] AM EDT Office Visit Cardiology at [address] [address] Izaiah Meyer MD [facility] [place] [address] documented as of this encounter Visit Diagnoses Diagnosis Seborrheic keratosis Other seborrheic keratosis Fibrous papule of nose Benign neoplasm of skin of other and unspecified parts of face Skin tags, multiple acquired documented in this encounter Care Teams Briquette Machine Operator Relationship Specialty Start Date End Date Rosie Mathews MD [address] [place] [address] PCP - General Family Medicine 11/25/17 11/23/23 documented as of this encounter
--- OUTSIDE RECORDS SUMMARY | 2024-02-27 09:55 | XMS_ITS | Clinical Summary ---
Author Organization [facility] Address [address] [place] [address] Care Team Providers Care Heel Former Name Role Phone Kirsten Bateman MD Primary Care Provider Allergies Active Allergy Reactions Criticality Noted Date [...] COVID-19 Vaccine (2022-24 season) 2023 Care Teams Heel Former Relationship Specialty Start Date End Date Kirsten Bateman MD [address] [place] [phone] PCP - General 01/13/10
--- OUTSIDE RECORDS SUMMARY | 2024-02-27 09:55 | XMS_ITS | Encounter Summary ---
Author Organization [facility] Address [address] [place] [address] Care Team Providers Care Hone Operator Name Role Phone Kirsten Bateman MD Primary Care Provider [phone] Encounter Details Date Type Department Care Team (Late st Contact Info) Description 01/14/2010 Abstract Used for ABSTRACTING Data [phone] Kirsten Bateman MD [address] [place] [address] Social History Tobacco Use Types [...] OIL/COCONUT OIL (FATTY ACID BASE MISC) by [facility].(Non-Drug; Combo Route) route. EPA CYANOCOBALAMIN (VITAMIN B-12 ORAL) Take by mouth. ASCORBIC ACID (VITAMIN C ORAL) Take by mouth. VITAMIN E ACETATE (VITAMIN E ORAL) Take by mouth. ASPIRIN ORAL Take by mouth. AMITRIPTYLINE HCL (AMITRIPTYLINE ORAL) Take by mouth. ATENOLOL ORAL Take by mouth. SIMVASTATIN ORAL Take by mouth. added in this encounter Care Teams Hone Operator Relationship Specialty Start Date End Date Kirsten Bateman MD [address] [place] [phone] PCP - General 01/13/10 documented as of this encounter
--- OUTSIDE RECORDS SUMMARY | 2024-02-27 09:55 | XMS_ITS | Referral Summary ---
Author Organization [facility] Address [address] [place] [address] Care Team Providers Care Chiropractic Assistant Name Role Phone Kirtsen Bateman MD Primary Care Provider [phone] Allergies Active Allergy Reactions Criticality Noted Date [...] of Treatment Not on file Care Teams Chiropractic Assistant Relationship Specialty Start Date End Date Kirsten Bateman MD [address] [place] [address] [facility] - General 01/13/10
--- OUTSIDE RECORDS SUMMARY | 2024-02-27 09:55 | XMS_ITS | Encounter Summary ---
Author Organization [facility] [place] [address] Care Team Providers Care Automation Test Developer Name Role Phone Rosie Mathews MD Primary Care Provider [phone] Reason for Visit * Auth/Cert (Routine) Specialty Diagnoses / Procedures Referred By Contac t Referred To Contact Diagnoses Unstable angina Chest pain NSTEMI Procedures CARDIAC CATHETERIZATION Rosa Dewey MD [facility] [place] [address] [facility] Referral ID Status Reason Start Date Expiration Date Visits Re quested Visits Authorized [id number] 1 1 Encounter Details Date Type Department Care Team (Late st Contact Info) Description 10/30/2023 4:25 PM EDT - 10/30/2023 5:27 PM EDT Surgery [place] [address] Rosa Dewey MD [facility] [address] [place], [place] [id number] CARDIAC CATHETERIZATION Social History Tobacco Use Types Packs/Day Years Used Date Smoking Tobacco: Former Smokeless Tobacco: Never Alcohol Use Standard Drinks/Week Comments Not Currently 0 (1 standard drink = 0.6 oz pur e alcohol) [facility] Inpatient Questions Answer Date Recorded Does Anyone [...] for hypertension and hyperlipidemia who presented to [facility] as a transfer from [facility] as a possible STEMI alert with acute onset chest pain. The patient reports that her symptoms initially began on Tuesday when she was walking to [facility] and experienced bilateral arm heaviness while walking with no other symptoms. Then, this afternoon shereports developing bilateral achy shoulder pain and nonradiating substernal left-sided chest pressure that was 7/10 in severity after [place]. The patient denies any associated fevers, chills, diaphoresis, lightheadedness/dizziness, syncope/presyncope, dyspnea (either at rest or on exertion), palpitations, orthopnea, or PND. The patient subsequently presented to [facility] as a walk-in for further [...] on repeat, her JAMIE resolved. Cardiology at [facility] was consulted for transfer; the patient was loaded with aspirin 324 mg and ticagrelor 180 mg, started on a heparin drip, and given nitroglycerin with improvement in chest pain. Upon arrival to [facility], the patient was taken directly to the Kitchen Manager. Two lesions were discovered: one in the prox RCA (felt to almost be a JEWEL INSERTER but they were able to wire, balloon, [...] dose administered prior to arrival in the livestock laborer. Recommended anti-platelet/anti-thrombotic regimen: Continue aspirin 81 [...] and low lung volumes. Findings similar to filter tender jelly radiograph from CT 10/30/2023. Pending Studies and [...] 10:40 AM Izaiah Meyer MD Cardiology at [place] Arrive at: [facility] [address] [phone] Future Orders Complete By Expires Referral to Cardiac Rehab [[id number] Custom] As directed Process Instructions: If no progress note charted, please enter Clinical details in comments. Scheduling Instructions: Questions: My question or request is: STEMI. Cardiac rehab at [facility]. Referral to Home Health [[id number] Custom] As directed Process Instructions: If no progress note charted, please enter Clinical details in comments. Scheduling Instructions: Comments: Please evaluate Adin Santos for admission to Home Health. [address] [place] [address] [place] [phone] (home) Date of : 1940 Inpatient DOCUMENTATION FOR VNA SERVICES (INCLUDING THOSE PATIENTS WITH MEDICARE COVERAGE REQUIRING HOME VNA SERVICES AND/OR HOSPICE SERVICES) PATIENT'S LOCATION: Adin Santos [address] [facility] [id number] (home) Cell: Telephone Information: Waste Minimization Technician's Name: self In discussion with the attending physician, it is certified that this patient is under their care and that they, or a Nurse Practitioner, Clinical Nurse specialist or Physician Building Contractor who is working directly with them, had [...] regarding health issues HOME HEALTH CARE AGENCY: [facility] [address] [place] [address] START OF CARE: within 24-48 hours of [...] Rosie Mathews MD [address] / [facility] [address] . All A agencies which cover the [...] / Dr. Masood Pierson [address] [place] [address] 11/09/23 1:55 PM arrival for 2:10 PM appointment Conservation Officer: Izaiah Meyer MD [address] [place] [address] , 11/24/2023 10:40 AM Your Inpatient Medical Team at [facility] Name(s) of your inpatient provider(s): Attending physician: Rosa Hugo MD Resident physicians: Emile Robles MD; Elmer Tamez MD If you have non-emergent questions, prior to your follow-up visit call: Tuesday-Tuesday between the hours of 8AM-5PM please call the Cardiology Clinic [phone] to speak with a nurse. All other hours please call the Hospital Provider Education Specialist [phone] and ask to speak to the test engine evaluator on-call. Your Primary Care Provider Rosie Mathews MD [phone] For questions regarding this document or issues relating to this hospitalization on the Medical Service, please contact your inpatient physician through the [facility] Provider Education Specialist . Issues afterhours and on weekends will be handled by the Conservation Officer staff on-call. Associated attestation - Rosa Hugo [...] / Dr. Masood Pierson [address] [place] [address] 11/09/23 1:55 PM arrival for 2:10 PM appointment Conservation Officer: Izaiah Meyer MD [address] [place] [address] , 11/24/2023 10:40 AM Your Inpatient Medical Team at [facility] Name(s) of your inpatient provider(s): Attending physician: Rosa Hugo MD Resident physicians: Emile Robles MD; Elmer Tamez MD If you have non-emergent questions, prior to your follow-up visit call: Tuesday-Tuesday between the hours of 8AM-5PM please call the Cardiology Clinic [phone] to speak with a nurse. All other hours please call the Hospital Provider Education Specialist [phone] and ask to speak to the test engine evaluator on-call. Your Primary Care Provider Rosie Mathews MD [phone] documented in this encounter Medications at Time [...] for hypertension and hyperlipidemia who presented to [facility] as a transfer from [facility] as a possible STEMI alert [...] for hypertension and hyperlipidemia who presented to [facility] as a transfer from [facility] as a possible STEMI alert [...] Resident on Cardiology Service Cardiology S1 (Pager [phone]) Note written in conjunction with Claudio Perla [facility] Medical Student, MS3 Associated attestation [...] Nirmala Webb - 11/01/2023 11:25 AM EDT Barge Pilot Encounter Note Patient Name: Adin Santos : [id number] MR#: [id number] Admit Date: 10/30/2023 5:11 PM Hospital Day 2 days Narrative: Self initiated visit to patient for Spiritual support in a regular unit rounds. Assessment: Patient is in the bathroom at the time of this visit. Not a good time for New Car Driver visit. Intervention and Outcome: An attempted visit [...] for hypertension and hyperlipidemia who presented to [facility] as a transfer from [facility] as a possible STEMI alert [...] and low lung volumes. Findings similar to filter tender jelly radiograph from CT 10/30/2023. Scheduled Medications: [MAR [...] for hypertension and hyperlipidemia who presented to [facility] as a transfer from [facility] as a possible STEMI alert [...] Resident on Cardiology Service Cardiology S1 (Pager [phone]) Note written in conjunction with Claudio Perla [facility] Medical Student, MS3 Associated attestation [...] for hypertension and hyperlipidemia who presented to [facility] as a transfer from [facility] as a possible STEMI alert with acute onset chest pain. Active Problems: Active Hospital Problems Diagnosis Unstable angina Resolved Hospital Problems No resolved problems to display. 24 hr events: - Cath'd yesterday with lesion in the proximal RCA (initially thought it was JEWEL INSERTER but they were ableto wire, balloon and [...] and low lung volumes. Findings similar to filter tender jelly radiograph from CT 10/30/2023. TTE (10/30): Interpretation [...] for hypertension and hyperlipidemia who presented to [facility] as a transfer from [facility] as a possible STEMI alert [...] Resident on Cardiology Service Cardiology S1 (Pager [phone]) Note written in conjunction with Claudio Perla [facility] Medical Student, MS3 Associated attestation [...] PCP: Rosie Mathews MD PCP phone number: [phone] Date of Admission: 10/30/2023 ( Hospital Day 0 days ) Attending:Rosa Cornejo MD ID: Adin Santos is a 83 y.o. female PMH significant for hypertension and hyperlipidemia who presented to [facility] as a transfer from [facility] as a possible STEMI alert with acute onset chest pain. The patient reports that her symptoms initially began on Tuesday when she was walking to [facility] and experienced bilateral arm heaviness while walking with no other symptoms. Then, this afternoon shereports developing bilateral achy shoulder pain and nonradiating substernal left-sided chest pressure that was 7/10 in severity after [place]. The patient denies any associated fevers, chills, diaphoresis, lightheadedness/dizziness, syncope/presyncope, dyspnea (either at rest or on exertion), palpitations, orthopnea, or PND. The patient subsequently presented to [facility] as a walk-in for further [...] on repeat, her JAMIE resolved. Cardiology at [facility] was consulted for transfer; the patient was loaded with aspirin 324 mg and ticagrelor 180 mg, started on a heparin drip, and given nitroglycerin with improvement in chest pain. Upon arrival to [facility], the patient was taken directly to the Kitchen Manager. Two lesions were discovered: one in the prox RCA (felt to almost be a JEWEL INSERTER but they were able to wire, balloon, [...] and low lung volumes. Findings similar to filter tender jelly radiograph from CT 10/30/2023. Assessment & Plan: Adin Santos is a 83 y.o. female PMH significant for hypertension and hyperlipidemia who presented to [facility] as a transfer from [facility] as a possible STEMI alert [...] HTN HLD transferred with chest from [facility]. BP 217/68, HR [address] elevation. Trop 214-->457. Echo without WMA. C. 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 Additional circ lesion with plan for staged PCI today. Rosa Hguo MD Advanced Heart Disease and Pulmonary Hypertension [...] information for follow-up [facility], [place] [address] TANESHA BOYCE confirmed with Brittany CARVAJAL that [...] in the room. Electrolytes replaced, see MAR. lab rep sites remained C/D/I with baseline ecchymosis unchanged. Pt complained of back pain, lidocaine patch given. Right IV infiltrated during infusion, patient is marked with sharpie, IV removed. See flowsheet for I+O's and safety rounding. Patient is able to make needs known and call capps within reach. PLAN MOVING FORWARD: Monitor Tele, control BP, monitor livestock laborer sites, D/C Planning INDIVIDUALIZED FALL PREVENTION [...] an outpatient cardiac rehabilitation program at [facility] was discussed. Patient agrees to [...] and above on RA. PT went to livestock laborer today. Left fem site oozed throughout [...] MOVING FORWARD: Monitor Tele, control BP, monitor livestock laborer sites, D/C Planning INDIVIDUALIZED FALL PREVENTION [...] From: Transfer from another hospital Location: [facility] Reason for Hospitalization: chest pain Covid Vaccination Status: 1st, 2nd & booster Past medical History: No past medical history on file. Hospitalizations Within the Past 30 Days: no previous admission in last 30 days Current Decision-Making Capacity: Self If AD's have not been completed the following surrogate would be surrogate decision maker per [place] surrogate decision making law. (Only good for 180 days) Any patient receiving care in [place] must abide by [place] law. The hierarchy for surrogate decision making [...] has the electric, gas, oil, or water [employer] threatened to shut off services in your [...] toilet seat Home Address confirmed as: [address] [facility] [address] Social & Family Supports: All names listed below confirmed with patient as current and correct Extended Emergency Contact Information Primary Emergency Contact: Iris Downing Address: [address] [place], [place] [id number] [place] [address] Mobile Relation: Child Secondary Emergency Contact: Karen More Address: [address] [facility] Mobile Relation: Child Current Care Provided by: self Provides Primary Care For: no one Caregiver if needed: child(emmanuel), adult Quality of Family relationships: involved, supportive Community Resources being provided currently: other (see comments) (receives [facility] services at home (1xweekly)) Behavioral Health [...] Insurance: N/A Prescription Coverage: Yes Preferred Pharmacy: [facility] [place], [place] - [address] [place] [address] [place] [address] [place] Status: Patient is a : No Primary Care Provider listed: Masood Pierson MD [phone] Patient/Caregiver Goals of Treatment: home when MR Potential Needs for Transition of Care: home health care Agency Referrals: Not Applicable I have met with the patient to: discuss discharge planning needs. provide the [facility], Office of Care Management letter from the Kindergarten Assistant pertaining to rehab referrals. provide a letter describing our affiliations within the [facility] and educate about their right to choose where referrals are sent. provide a list of Home Health Agencies / Durable Medical Equipment vendors which serve their preferred geographic area. provided patient with CMS Star Quality Rating handout. They have requested referrals to: [facility] [address] [place] [address] Note routed to a Grader Tender who will communicate referrals to facilities and [...] results. PO hydralazine added for BP control. lab rep sites remain C/D/I, ecchymosis unchanged th roughout shift. See flowsheet for I+O's and safety rounding. Patient is able to make needs known and call capps within reach. PLAN MOVING FORWARD: Monitor Tele, control CP and BP, NPO at MD for cath, monitor livestock laborer sites, D/C Planning INDIVIDUALIZED FALL PREVENTION [...] AM EDT Office Visit Cardiology at [address] [address] Izaiah Meyer MD [facility] [place] [address] Scheduled Referrals Name Type Priority Associated Diagnoses [...] Abs 1.3 0.9 - 3.2 x10(3)/mc L [facility] Monocyte % 16.9 % [facility] Monocyte Abs 1.4(H) 0.3 - 0.9 x10(3)/mc L [facility] Eos % 3.7 % [facility] Eosinophils Abs 0.3 0.0 - 0.4 x10(3)/mc L [facility] Basophil % 0.5 % [facility] [...] HEMATOLOGY ORDERABLE S [facility] [place] [address] * (ABNORMAL) Hemogram (11/03/2023 3:46 AM EDT) White Blood Cell 8.3 4.0 - 9.5 x10(3)/[facility] Red Blood Cell 3.77(L) 4.00 - 5.21 x10(6)/[facility] Hemoglobin 13.1 11.7 - 15.5 [...] Platelet 181 145 - 357 x10(3)/ L [facility] RDW Standard Deviation 54.7(H) 37.0 - 46.0 [facility] RDW coefficient of variation 14.6(H) 11.5 - 14.1 % [facility] Mean Platelet Volume 11.2 7.6 - 12.9 [facility] NRBC% auto 0.0 % [facility] NRBC Absolute 0.000 0.000 - 0.000 x10(3)/ L [facility] Blood 11/03/2023 3:46 AM EDT 11/03/2023 4:11 AM EDT Narrative Resulting Agency Comment Spec In Lab Qamar Gallardo MD HEMATOLOGY ORDERABLE S Performing Organization Address City/[facility]/ZIP Co de Phone Number [facility] [place] [address] * Phosphorus (11/03/2023 3:46 AM EDT) Phosphorus 3.2 2.5 - 4.5 mg/dL [facility] Comment:result rechecked-KS Blood 11/03/2023 3:46 AM EDT 11/03/2023 4:11 AM EDT Narrative Resulting Agency Comment Spec In Lab Rosa Cornejo MD CHEMISTRY ORDERABLE S Performing Organization Address [facility]/ZIP Co de Phone Number [facility] [place] [address] * Magnesium (11/03/2023 3:46 AM EDT) Magnesium 0.90 0.69 - 1.07 mmol/L [facility] Blood 11/03/2023 3:46 AM EDT 11/03/2023 4:11 AM EDT Narrative Resulting Agency Comment Spec In Lab Rosa Cornejo MD CHEMISTRY ORDERABLE S Performing Organization Address City/[facility]/ZIP Co de Phone Number [facility] [place] [address] * (ABNORMAL) Basic Metabolic Panel (non-fasting) (11/03/2023 [...] CHEMISTRY ORDERABLE S [facility] [place] [address] * EKG 12 Lead (11/02/2023 12:44 PM EDT) Ventricular rate 83 BPM MUSE SYSTEM Atrial Rate 83 BPM MUSE SYSTEM P-R Interval 216 ms MUSE SYSTEM QRS Duration 90 ms MUSE SYSTEM Q-T Interval 384 ms MUSE SYSTEM QTC Calculated (Bezet) 451 ms MUSE SYSTEM Calculated P [place] 92 degrees MUSE SYSTEM Calculated R [place] -51 degrees MUSE SYSTEM Calculated T [place] -33 degrees MUSE SYSTEM INTERPRETATION Sinus rhythm [...] RBC, Urine <1 0 - 4 /HPF [facility] Comment: Interpret results with caution, microscopic results are from suboptimal specimen volume WBC, Urine 16(H) 0 - 5 /HPF [facility] Comment: Interpret results [...] In Lab Elmer Tamez MD URINE ORDERABLES [facility] [place] [address] * (ABNORMAL) Urinalysis with reflex Culture (11/02/2023 [...] HOSPITAL LABORATORY Leukocytes, Urine Dipstick Small(A) Negative [facility] Appearance, Urine Dipstick Cloudy(A) Clear [facility] Specific Mars Urine Automated >=1.030(A) 1.005 - 1.030 [facility] Color, Urine Dipstick Dark Yellow Yellow [facility] Reflex to Culture Yes [facility] Clean Catch Urine 11/02/2023 11:40 AM EDT 11/02/2023 12:04 PM EDT Narrative Resulting Agency Comment Spec In Lab Rosa Hugo MD URINE ORDERABLES [facility] [place] [address] * Respiratory Panel PCR (11/02/2023 10:15 AM EDT) Respiratory Panel Source ST[employer] [place] Swab [facility] Respiratory Panel PCR Negative Negative [facility] Comment: Respiratory Panels are performed on the ZENTICKET, using multiplexed PCR nucleic acid detection. ??Negative [...] performed using the BioFire Respiratory Panel 2.1 (DataParenting) as authorized by the FDA issued Emergency [...] fact sheets at the following FDA website: https://www.fda.gov/medical-devices/kxkobwatobz-lfafmzg-1429-jubjy-86-citwmokoa- use-a phftcshndgivz-czkstdt-uoytzyo/vgwkw-ptesovswooh-lmvd Human Metapneumovirus Not Detected Not Detected [facility] [...] GEN ERAL ORDERABLES [facility] [place] [address] * XR Chest One View (11/02/2023 2:51 AM EDT) WORKSTATION ID [id number] DH RAD Anatomical Region Laterality Modality Chest [...] who have questions please contact the health behavioral health care manager that requested your imaging first. [...] patients who have questions please contactthe health behavioral health care manager that requested your imaging first. [...] [facility] Monocyte % 12.9 % [facility] Monocyte Abs 1.3(H) 0.3 - 0.9 x10(3)/mc L [facility] Eos % 1.4 % [facility] Eosinophils Abs 0.1 0.0 - 0.4 x10(3)/mc L [facility] Basophil % 0.4 % [facility] [...] Absolute 0.05(H) 0.00 - 0.04 x10(3)/ L [facility] Blood 11/02/2023 12:3 5 AM EDT 11/02/2023 12:43 AM EDT Narrative Resulting Agency Comment Spec In Lab Qamar Gallardo MD HEMATOLOGY ORDERABLE S [facility] [place] [address] * (ABNORMAL) Hemogram (11/02/2023 12:35 AM EDT) [...] Platelet Volume 11.4 7.6 - 12.9 fL [facility] NRBC% auto 0.0 % [facility] NRBC Absolute 0.000 0.000 - 0.000 x10(3)/mc L [facility] Blood 11/02/2023 12:3 5 AM EDT 11/02/2023 12:43 AM EDT Narrative Resulting Agency Comment Spec In Lab Qamar Gallardo MD HEMATOLOGY ORDERABLE S [facility] [place] [address] * (ABNORMAL) Phosphorus (11/02/2023 12:35 AM EDT) Phosphorus 1.6(L) 2.5 - 4.5 mg/dL [facility] Blood 11/02/2023 12:3 5 AM EDT 11/02/2023 12:43 AM EDT Narrative Resulting Agency Comment Spec In Lab Rosa Cornejo MD CHEMISTRY ORDERABLE S Performing Organization Address [facility]/ZIP Co de Phone Number [facility] [place] [address] * Magnesium (11/02/2023 12:35 AM EDT) Magnesium 0.87 0.69 - 1.07 mmol/L [facility] Blood 11/02/2023 12:3 5 AM EDT 11/02/2023 12:43 AM EDT Narrative Resulting Agency Comment Spec In Lab Rosa Cornejo MD CHEMISTRY ORDERABLE S Performing Organization Address City/[facility]/ZIP Co de Phone Number [facility] [place] [address] * Basic Metabolic Panel (non-fasting) (11/02/2023 12:35 [...] CHEMISTRY ORDERABLE S [facility] [place] [address] * Blood culture (11/02/2023 12:35 AM EDT) Blood Culture No growth at 5 days. [facility] Blood 11/02/2023 12:3 5 AM EDT 11/02/2023 1:55 AM EDT Comment:#2 site ukn Narrative Resulting Agency Comment Spec In Lab Rosa Hugo MD MICROBIOLOGY - BLO OD ORDERABLES Performing Organization Address [facility] Co de Phone Number [facility] [place] [address] * Blood culture (11/02/2023 12:15 AM EDT) Blood Culture No growth at 5 days. [facility] Blood 11/02/2023 12:1 5 AM EDT 11/02/2023 1:54 AM EDT Comment:#1site unk Narrative Resulting Agency Comment Spec In Lab Rosa Hugo MD MICROBIOLOGY - BLO OD ORDERABLES Performing Organization Address [facility] Co de Phone Number [facility] [place] [address] * EKG 12 Lead (11/01/2023 10:10 PM EDT) Ventricular rate 139 BPM MUSE SYSTEM Atrial Rate 139 BPM MUSE SYSTEM P-R Interval 168 ms MUSE SYSTEM QRS Duration 84 ms MUSE SYSTEM Q-T Interval 286 ms MUSE SYSTEM QTC Calculated (Bezet) 435 ms MUSE SYSTEM Calculated R [place] -59 degrees MUSE SYSTEM Calculated T [place] -27 degrees MUSE SYSTEM INTERPRETATION Mid-RP tachycardia, [...] interpretation Confirmed by fellow MD Bowen Ashley ([id number]) on 11/04/2023 7:57:50 AM Confirmed by MD Carrillo Danette ([id number]) on 11/04/2023 4:32:03 PM MUSE SYSTEM 11/01/2023 10:1 0 PM EDT 11/04/2023 4:32 PM EDT Rosa Cornejo MD ECG ORDERABLES MUSE SYSTEM * (ABNORMAL) Hemogram (11/01/2023 10:06 PM EDT) White Blood Cell 10.4(H) 4.0 - 9.5 x10(3)/[facility] LABORATORY Red Blood Cell 4.11 4.00 - 5.21 x10(6)/[facility] LABORATORY Hemoglobin 14.0 11.7 - 15.5 [...] Platelet 197 145 - 357 x10(3)/ L [facility] RDW Standard Deviation 54.0(H) 37.0 - 46.0 fL [facility] RDW coefficient of variation 14.6(H) 11.5 - 14.1 % [facility] Mean Platelet Volume 11.2 7.6 - 12.9 fL [facility] NRBC% auto 0.0 % [facility] NRBC Absolute 0.000 0.000 - 0.000 x10(3)/ L [facility] Blood 11/01/2023 10:0 6 PM EDT 11/01/2023 10:22 PM EDT Narrative Resulting Agency Comment Spec In Lab Rosa Hugo MD HEMATOLOGY ORDERAB LES Performing Organization Address City/[facility]/ZIP Co de Phone Number [facility] [place] [address] * POCT Glucose (11/01/2023 5:59 PM EDT) [facility] Signature Glucose, POC 104 65 - 199 mg/dL [facility] Comment: Supplemental ranges: <140 mg/dL before meals <180 mg/dL all other times of the day Blood 11/01/2023 5:59 PM EDT 11/01/2023 5:59 PM EDT Rosa Hugo MD POINT OF CARE TEST ORDERABLES Performing Organization Address [facility] Co de Phone Number [facility] [place] [place] [address] * POCT Glucose (11/01/2023 5:35 PM EDT) [facility] Glucose, POC 85 65 - 199 mg/dL [facility] Comment: Supplemental ranges: <140 mg/dL before meals <180 mg/dL all other times of the day Blood 11/01/2023 5:35 PM EDT 11/01/2023 5:35 PM EDT Rosa Hugo MD POINT OF CARE TEST ORDERABLES Performing Organization Address City/[facility] Co de Phone Number [facility] [place] [place] [address] * EKG 12 Lead (11/01/2023 3:22 PM EDT) Ventricular rate 59 BPM MUSE SYSTEM Atrial Rate 59 BPM MUSE SYSTEM P-R Interval 220 ms MUSE SYSTEM QRS Duration 94 ms MUSE SYSTEM Q-T Interval 428 ms MUSE SYSTEM QTC Calculated (Bezet) 423 ms MUSE SYSTEM Calculated P [place] 76 degrees MUSE SYSTEM Calculated R [place] -50 degrees MUSE SYSTEM Calculated T [place] -59 degrees MUSE SYSTEM INTERPRETATION Sinus bradycardia [...] Modality Other Narrative 11/02/2023 4:57 PM EDT ?[facility] ? Cardiac Catheterization/Intervention Report ? Patient Name: Adin Santos ? Procedure Date: 11/01/2023 ? A #: [id number] ? Primary Physician: Rosa Dewey I ? Case #: [id number] ? File Name: [id number] ? Catheterization Order Number: [id number] ? [facility] ? Final Report [place], [place] ? Patient Name: ? Adin M. Goguen ?ID#: ?[id number] ? : ?1940 ? Procedure Date: ? [...] procedure was Urgent. The indication for ?the livestock laborer visit is ACS greater than 24 [...] ??A premounted ? 3.50 x 15 mm [place] Ward (RADHA) was deployed with a maximum ? [...] A premounted 3.50 x 15 mm Andrea Ward (RADHA) was deployed ? with a maximum [...] dose administered prior to arrival in the livestock laborer. ?Recommended anti-platelet/anti-thrombotic regimen: ?Continue aspirin 81 mg daily for indefinitely. ?Continue clopidogrel 75 mg daily for 12 months then stop. ?These recommendations are made at the time of the intervention. Patient ?and provider preferences or a changing clinical situation may require ?modification of this regimen. Consult [facility] Interventional Cardiology for ?questions. ?The 1 year [...] Procedure Note Rosa Dewey MD - 12/12/2023 [facility] Cardiac Catheterization/Intervention Report Patient Name: Adin Santos Procedure Date: 11/01/2023 A #: [id number] Primary Physician: Rosa Dewey I Case #: [id number] File Name: [id number] Catheterization Order Number: [id number] [facility] FinalReport [place], [place] Patient Name: Adin aSntos ID#:[id number] :1940 Procedure Date: November 01, 2023 Case [...] was designated as ASA Class III. [facility]: Vulnerable. Diagnostic Tests: Prior Coronary Angiography: LV ejection fraction within 6 months is 65%. Electrocardiography: EKG was assessed by ECG. EKG was Abnormal. EKG showed other abnormality. Medications Prior to Procedure: Aspirin, Angiotensin II Receptor Rodrick and Statin. Indications for Diagnostic Cath: The priority of the diagnostic procedure was Urgent. 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 Apremounted 3.50 x 15 mm Andrea Ward (RADHA) was deployed with amaximum inflation pressure [...] The lesion was predilated with a 3.00mm [id number] MM balloon with a maximum inflation pressure of 14atmospheres. A premounted 3.50 x 15 mm Andrea Ward (RADHA) wasdeployed with a maximum inflation pressure [...] dose administered prior to arrival in the livestock laborer. Recommended anti-platelet/anti-thrombotic regimen: Continue aspirin 81 mg daily for indefinitely. Continue clopidogrel 75 mg daily for 12 months then stop. These recommendations are made at the time of the intervention.Patient and provider preferences or a changing clinical situation mayrequire modification of this regimen. Consult [facility] Interventional Cardiologyfor questions. The 1 year bleeding [...] * POCT Glucose (11/01/2023 7:06 AM EDT) [facility] Glucose, POC 93 65 - 199 mg/dL [facility] Comment: Supplemental ranges: <140 mg/dL before meals <180 mg/dL all other times of the day Blood 11/01/2023 7:06 AM EDT 11/01/2023 7:06 AM EDT Jean Laboy MD POINT OF CARE TEST O RDERABLES [facility] [place] [place] [address] * (ABNORMAL) Differential, Automated (11/01/2023 3:09 AM EDT) Pathologist [facility] Neutrophil % 63.9 % [facility] Neutrophil Absolute 5.54 1.70 - 6.10 x10(3)/mc L [facility] Lymph % 20.0 % [facility] Lymphocytes Abs 1.7 0.9 - 3.2 x10(3)/mc L [facility] Monocyte % 11.9 % [facility] Monocyte Abs 1.0(H) 0.3 - 0.9 x10(3)/mc L [facility] Eos % 3.2 % [facility] Eosinophils Abs 0.3 0.0 - 0.4 x10(3)/ L [facility] Basophil % 0.5 % [facility] [...] HEMATOLOGY ORDERABLE S Performing Organization Address City/State/[facility] Co de Phone Number [facility] [place] [address] * (ABNORMAL) Hemogram (11/01/2023 3:09 AM EDT) [...] Platelet 184 145 - 357 x10(3)/mc L [facility] RDW Standard Deviation 53.5(H) 37.0 - 46.0 fL [facility] RDW coefficient of variation 14.6(H) 11.5 - 14.1 % [facility] Mean Platelet Volume 11.3 7.6 - 12.9 fL [facility] NRBC% auto 0.0 % [facility] NRBC Absolute 0.000 0.000 - 0.000 x10(3)/mc L [facility] Blood 11/01/2023 3:09 AM EDT 11/01/2023 3:29 AM EDT Narrative Resulting Agency Comment Spec In Lab Qamar Gallardo MD HEMATOLOGY ORDERABLE S Performing Organization Address City/[facility]/ZIP Co de Phone Number [facility] [place] [address] * Phosphorus (11/01/2023 3:09 AM EDT) Phosphorus 2.5 2.5 - 4.5 mg/dL [facility] Blood 11/01/2023 3:09 AM EDT 11/01/2023 3:29 AM EDT Narrative Resulting Agency Comment Spec In Lab Rosa Cornejo MD CHEMISTRY ORDERABLE S Performing Organization Address City/[facility]/ZIP Co de Phone Number [facility] [place] [address] * Magnesium (11/01/2023 3:09 AM EDT) Magnesium 0.82 0.69 - 1.07 mmol/L [facility] Blood 11/01/2023 3:09 AM EDT 11/01/2023 3:29 AM EDT Narrative Resulting Agency Comment Spec In Lab Rosa Cornejo MD CHEMISTRY ORDERABLE S [facility] [place] [place] [address] * (ABNORMAL) Basic Metabolic Panel (non-fasting) (11/01/2023 [...] CHEMISTRY ORDERABLE S [facility] [place] [address] * (ABNORMAL) Troponin (10/31/2023 2:46 PM EDT) [...] [facility] Test Catalog Reference: Fourth [place] Definition of Myocardial Infarction. Journal of the [place] [employer] 2018;72:6775-4154 Blood 10/31/2023 2:46 PM EDT 10/31/2023 2:55 PM EDT Narrative Resulting Agency Comment Spec In Lab Jean Laboy MD CHEMISTRY ORDERABLES Performing Organization Address [facility] Co de Phone Number [facility] [place] [address] * EKG 12 Lead (10/31/2023 1:07 PM EDT) Ventricular rate 54 BPM MUSE SYSTEM Atrial Rate 54 BPM MUSE SYSTEM P-R Interval 218 ms MUSE SYSTEM QRS Duration 92 ms MUSE SYSTEM Q-T Interval 540 ms MUSE SYSTEM QTC Calculated (Bezet) 512 ms MUSE SYSTEM Calculated P [place] 85 degrees MUSE SYSTEM Calculated R [place] -44 degrees MUSE SYSTEM Calculated T [place] -69 degrees MUSE SYSTEM INTERPRETATION Sinus bradycardia with 1st degree A-V block Left axis deviation Moderate voltage criteria for LVH, may be normal variant ( R in aVL , Dolores product ) T wave abnormality, consider inferolateral ischemia Prolonged QT Abnormal ECG When compared with ECG of 30-OCT-2023 20:21, Incomplete right bundle branch block is no longer Present Confirmed by MD NEFTALI, CHIDI ([id number]) on 10/31/2023 2:28:46 PM MUSE SYSTEM 10/31/2023 1:07 PM EDT 10/31/2023 2:28 PM EDT Rosa Cornejo MD ECG ORDERABLES Performing Organization Address [facility] Co de Phone Number MUSE SYSTEM * (ABNORMAL) Troponin (10/31/2023 11:37 AM EDT) Pathologist [facility] Troponin-T, High Sensitivity 580(H) <=14 ng/L [facility] [...] [facility] Test Catalog Reference: Fourth [place] Definition of Myocardial Infarction. Journal of the [place] [employer] 2018;72:4253-6266 Blood 10/31/2023 11:3 7 AM EDT 10/31/2023 11:50 AM EDT Narrative Resulting Agency Comment Spec In Lab Rosa Cornejo MD CHEMISTRY ORDERABLE S [facility] [place] [address] * ECHO COMPLETE (10/31/2023 8:52 AM EDT) Anatomical Region Laterality Modality Cardiac Other 10/31/2023 7:57 AM EDT Narrative 10/31/2023 9:45 AM EDT [address] [place] [address] ? Echocardiogram Report Name: ADIN SANTOS ? Study Date: 10/31/2023 07:57 AMBP: 106/76 mmHg ? Patient Location: [facility] 0[facility] A : 1940 ? Height: 163 cm ? Account: [id number] Age: 83 yrs ? Weight: 76 kg Gender: Female ?BSA: 1.8 m2 Ordering Physician: ROSA DEWEY Referring Physician: OMAIRA GIRON Performed By: HAFSA Carmichael Reason For Study: STEMI Interpreting Fellow: Raymond Warren. Exam Location: [facility]. Interpretation Summary -The left [...] is no prior echocardiogram for comparison. Procedure Complete-88073. Satisfactory quality. There is sinus bradycardia. Left [...] Note Edgard Wang MD - 10/31/2023 [address] [place] [id number] Echocardiogram Report Name: TERY SANTOSMarco A Catherine Study Date: 407:57 AMBP: 106/76 mmHg Patient Location: [address] : 1940 Height: 163 cm Account: [id number] Age: 83 yrs Weight: 76 kg Gender: Female BSA: 1.8 m2 Ordering Physician: ROSA DEWEY Referring Physician: OMAIRA GIRON Performed By: HAFSA Carmichael Reason For Study: STEMI Interpreting Fellow: Raymond Warren. Exam Location: [facility]. Interpretation Summary -The left [...] is no prior echocardiogram for comparison. Procedure Complete-51227. Satisfactory quality. There is sinus bradycardia. Left [...] [facility] Hospital Laboratory Test Catalog Reference: Fourth [place] Definition of Myocardial Infarction. Journal of the [place] [employer] 2018;72:2736-4944 Blood 10/31/2023 8:51 AM EDT 10/31/2023 9:12 AM EDT Narrative Resulting Agency Comment Spec In Lab Rosa Cornejo MD CHEMISTRY ORDERABLE S Performing Organization Address City/State/[facility] Co de Phone Number [facility] [place] [address] * CARDIAC CATHETERIZATION (10/31/2023 8:10 AM EDT) Anatomical Region Laterality Modality Other Narrative 11/07/2023 9:42 AM EDT ?[facility] ? Cardiac Catheterization/Intervention Report ? Patient Name: Adin Santos M. ? Procedure Date: 10/30/2023 ? A #: [id number] ? Primary Physician: Rosa Dewey I ? Case #: [id number] ? File Name: [id number] ? Catheterization Order Number: [id number] ? [facility] ? Final Report [place], [place] ? Patient Name: ? Adin M. Goguen ?ID#: ?[id number] ? : ?1940 ? Procedure Date: ? October 30, 2023 ? Case #: ? [id number] ? Room: ? 5 ? Case Physician: [...] procedure was Emergent. The indication for ?the livestock laborer visit is ACS less than or [...] ? A premounted 4.00 x 38 mm [place] Ward (RADHA) was deployed ? with a maximum [...] dose administered prior to arrival in the livestock laborer. ?Recommended anti-platelet/anti-thrombotic regimen: ?Continue aspirin 81 mg daily for 12 months then stop. ?Continue clopidogrel 75 mg daily for indefinitely. ?These recommendations are made at the time of the intervention. Patient ?and provider preferences or a changing clinical situation may require ?modification of this regimen. Consult [facility] Interventional Cardiology for ?questions. ? Conclusions: ?* [...] Procedure Note Rosa Dewey MD - 12/05/2023 [facility] Cardiac Catheterization/Intervention Report Patient Name: Adin Santos Procedure Date: 10/30/2023 A #: [id number] Primary Physician: Rosa Dewey I Case #: [id number] File Name: [id number] Catheterization Order Number: [id number] [facility] FinalReport [place], [place] Patient Name: Adin Santos ID#:[id number] :1940 Procedure Date: October 30, 2023 Case [...] was designated as ASA Class III. The [facility] clinical frailtyscale is 5: Mildly Frail. Diagnostic Tests: Electrocardiography: EKG was assessed by ECG. EKG was Abnormal. EKG showed STDeviation >= 0.5 mm, other abnormality and dynamic EKG changes. Medications Prior to Procedure: Aspirin, Angiotensin II Receptor Rodrick, Beta Rodrick andStatin. Indications for Diagnostic Cath: The priority of the diagnostic procedure was Emergent. Theindication for the livestock laborer visit is ACS less than or [...] A premounted 4.00 x 38 mm Andrea Ward (RADHA) wasdeployed with a maximum inflation pressure [...] dose administered prior to arrival in the livestock laborer. Recommended anti-platelet/anti-thrombotic regimen: Continue aspirin 81 mg daily for 12 months then stop. Continue clopidogrel 75 mg daily for indefinitely. These recommendations are made at the time of the intervention.Patient and provider preferences or a changing clinical situation mayrequire modification of this regimen. Consult [facility] Interventional Cardiologyfor questions. Conclusions: * Two vessel [...] * (ABNORMAL) Troponin (10/31/2023 4:21 AM EDT) [facility] Troponin-T, High Sensitivity 457(H) <=14 ng/L [facility] [...] [facility] Test Catalog Reference: Fourth [place] Definition of Myocardial Infarction. Journal of the [place] [employer] 2018;72:1016-0215 Blood 10/31/2023 4:21 AM EDT 10/31/2023 4:30 AM EDT Narrative Resulting Agency Comment Spec In Lab Rosa Cornejo MD CHEMISTRY ORDERABLE S Performing Organization Address City/State/[facility] Co de Phone Number [facility] [place] [address] * (ABNORMAL) Differential, Automated (10/31/2023 3:05 AM EDT) Neutrophil % 71.7 % [facility] Neutrophil Absolute 8.21(H) 1.70 - 6.10 x10(3)/mc L [facility] Lymph % 16.9 % [facility] Lymphocytes Abs 1.9 0.9 - 3.2 x10(3)/mc L [facility] Monocyte % 9.4 % [facility] Monocyte Abs 1.1(H) 0.3 - 0.9 x10(3)/mc L [facility] Eos % 1.3 % [facility] Eosinophils Abs 0.2 0.0 - 0.4 x10(3)/mc L [facility] Basophil % 0.4 % [facility] [...] HEMATOLOGY ORDERABLE S Performing Organization Address City/State/[facility] Co de Phone Number [facility] [place] [address] * (ABNORMAL) Hemogram (10/31/2023 3:05 AM EDT) White Blood Cell 11.5(H) 4.0 - 9.5 x10(3)/ L [facility] Red Blood Cell 3.75(L) 4.00 - 5.21 x10(6)/ L [facility] Hemoglobin 12.6 11.7 - [...] Standard Deviation 53.4(H) 37.0 - 46.0 fL [facility] RDW coefficient of variation 14.6(H) 11.5 - 14.1 % [facility] Mean Platelet Volume 11.1 7.6 - 12.9 fL [facility] NRBC% auto 0.0 % [facility] NRBC Absolute 0.000 0.000 - 0.000 x10(3)/mc L [facility] Blood 10/31/2023 3:05 AM EDT 10/31/2023 3:13 AM EDT Narrative Resulting Agency Comment Spec In Lab Qamar Gallardo MD HEMATOLOGY ORDERABLE S Performing Organization Address [facility] Co de Phone Number [facility] [place] [address] * (ABNORMAL) APTT (10/31/2023 3:05 AM EDT) [...] Resulting Agency Comment Spec In Lab Rosa Conrejo MD HEMATOLOGY ORDERABL ES Performing Organization Address [facility] Co de Phone Number [facility] [place] [address] * (ABNORMAL) Prothrombin Time (10/31/2023 3:05 AM [...] Lab Rosa Cornejo MD HEMATOLOGY ORDERABL ES [facility] [place] [place] [address] * (ABNORMAL) Differential, Automated (10/31/2023 1:37 AM EDT) Neutrophil % 71.1 % [facility] Neutrophil Absolute 7.53(H) 1.70 - 6.10 x10(3)/mc L [facility] Lymph % 18.0 % [facility] Lymphocytes Abs 1.9 0.9 - 3.2 x10(3)/mc L [facility] Monocyte % 8.7 % [facility] Monocyte Abs 0.9 0.3 - 0.9 x10(3)/mc L [facility] Eos % 1.6 % [facility] Eosinophils Abs 0.2 0.0 - 0.4 x10(3)/mc L [facility] Basophil % 0.4 % [facility] [...] HEMATOLOGY ORDERABLE S [facility] [place] [address] * (ABNORMAL) Hemogram (10/31/2023 1:37 AM EDT) [...] Platelet 204 145 - 357 x10(3)/mc L [facility] RDW Standard Deviation 54.3(H) 37.0 - 46.0 fL [facility] RDW coefficient of variation 14.6(H) 11.5 - 14.1 % [facility] Mean Platelet Volume 11.1 7.6 - 12.9 fL [facility] NRBC% auto 0.0 % [facility] NRBC Absolute 0.000 0.000 - 0.000 x10(3)/mc L [facility] Blood 10/31/2023 1:37 AM EDT 10/31/2023 1:46 AM EDT Narrative Resulting Agency Comment Spec In Lab Qamar Gallardo MD HEMATOLOGY ORDERABLE S [facility] [place] [address] * Phosphorus (10/31/2023 1:37 AM EDT) [facility] Phosphorus 3.2 2.5 - 4.5 mg/dL [facility] Blood 10/31/2023 1:37 AM EDT 10/31/2023 1:46 AM EDT Narrative Resulting Agency Comment Spec In Lab Rosa Cornejo MD CHEMISTRY ORDERABLE S Performing Organization Address City/[facility]/ZIP Co de Phone Number [facility] [place] [address] * Magnesium (10/31/2023 1:37 AM EDT) [facility] Magnesium 0.83 0.69 - 1.07 mmol/L [facility] Blood 10/31/2023 1:37 AM EDT 10/31/2023 1:46 AM EDT Narrative Resulting Agency Comment Spec In Lab Rosa Cornejo MD CHEMISTRY ORDERABLE S Performing Organization Address City/[facility]/ZIP Co de Phone Number [facility] [place] [address] * Basic Metabolic Panel (non-fasting) (10/31/2023 1:37 AM EDT) [facility] Glucose 114 65 - 199 mg/dL [...] CHEMISTRY ORDERABLE S [facility] [place] [address] * (ABNORMAL) Troponin (10/31/2023 1:37 AM EDT) [...] [facility] Test Catalog Reference: Fourth [place] Definition of Myocardial Infarction. Journal of the [place] [employer] 2018;72:6515-8245 Blood 10/31/2023 1:37 AM EDT 10/31/2023 1:46 AM EDT Narrative Resulting Agency Comment Spec In Lab Rosa Cornejo MD CHEMISTRY ORDERABLE S Performing Organization Address City/State/[facility] [place] [address] * EKG 12 Lead (10/31/2023 1:20 AM EDT) Ventricular rate 52 BPM MUSE SYSTEM Atrial Rate 52 BPM MUSE SYSTEM P-R Interval 224 ms MUSE SYSTEM QRS Duration 108 ms MUSE SYSTEM Q-T Interval 544 ms MUSE SYSTEM QTC Calculated (Bezet) 505 ms MUSE SYSTEM Calculated P [place] 90 degrees MUSE SYSTEM Calculated R [place] -57 degrees MUSE SYSTEM Calculated T [place] -63 degrees MUSE SYSTEM INTERPRETATION Sinus bradycardia with 1st degree A-V block Pulmonary disease pattern Left anterior fascicular block Moderate voltage criteria for LVH, may be normal variant ( R in aVL , Dolores product ) T wave abnormality, consider inferior ischemia T wave abnormality, consider anterolateral ischemia Prolonged QT Abnormal ECG When compared with ECG of 30-OCT-2023 22:40, No significant change was found Confirmed by Butch Soto MD ([id number]) on 11/01/2023 8:58:03 PM MUSE SYSTEM 10/31/2023 1:20 AM EDT 11/01/2023 8:58 PM EDT Rosa Cornejo MD ECG ORDERABLES Performing Organization Address [facility] de Phone Number MUSE SYSTEM * EKG 12 Lead (10/30/2023 10:40 PM EDT) Ventricular rate 55 BPM MUSE SYSTEM Atrial Rate 55 BPM MUSE SYSTEM P-R Interval 232 ms MUSE SYSTEM QRS Duration 102 ms MUSE SYSTEM Q-T Interval 520 ms MUSE SYSTEM QTC Calculated (Bezet) 497 ms MUSE SYSTEM Calculated P [place] 75 degrees MUSE SYSTEM Calculated R [place] -53 degrees MUSE SYSTEM Calculated T [place] -57 degrees MUSE SYSTEM INTERPRETATION Sinus bradycardia with 1st degree A-V block Left anterior fascicular block Moderate voltage criteria for LVH, may be normal variant ( R in aVL , Dolores product ) T wave abnormality, consider inferior ischemia T wave abnormality, consider anterolateral ischemia Prolonged QT Abnormal ECG When compared with ECG of 30-OCT-2023 20:21, Incomplete right bundle branch block is no longer Present Confirmed by Charles COFFMAN, Butch ([id number]) on 11/01/2023 8:58:01 PM MUSE SYSTEM 10/30/2023 10:4 0 PM EDT 11/01/2023 8:58 PM EDT Rosa Cornejo MD ECG ORDERABLES Performing Organization Address [facility] Phone Number MUSE SYSTEM * XR Chest One View (10/30/2023 10:10 PM EDT) WORKSTATION ID [id number] RAD Anatomical Region Laterality Modality Chest N/A Digital Radiogra phy Impressions 10/30/2023 10:32 PM EDT 1. ??Examination limited by low lung volumes. 2. ??Findings suggesting pulmonary vascular congestion with possible mild interstitial edema. 3. ??Known ascending aortic aneurysm, as seen on recent CT. 4. ??Nonspecific widening mediastinum. This can be secondary to magnification from portable technique and low lung volumes. Findings similar to filter tender jelly radiograph from CT 10/30/2023. Thank you for letting us participate in the care of this patient. ??If you are a health care provider and have any questions regarding this report, please contact the number below. ??For patients who have questions please contact the health behavioral health care manager that requested your imaging first. ? Electronically signed by: Wilson Mccartney MD, [facility] ([phone]), at 10/30/2023 10:32 PM Narrative 10/30/2023 10:32 [...] and low lung volumes. Findings similar to filter tender jelly radiograph from CT 10/30/2023. Thank you for letting us participate in the care of this patient. If youare a health care provider and have any questions regarding this report,please contact the number below. For patients who have questions please contactthe health behavioral health care manager that requested your imaging first. Rosa Cornejo MD IMG DX ORDERABLES * Green Tube HOLD (10/30/2023 10:05 PM EDT) [facility] Green Hold Sample in lab. [facility] Blood Venous Draw / Unknown 10/30/2023 10:05 PM EDT 10/30/2023 10:13 PM EDT Qamar Gallardo MD CHEMISTRY ORDERABLES [facility] [place] [address] * (ABNORMAL) Differential, Automated (10/30/2023 10:05 PM EDT) [facility] Neutrophil % 76.6 % [facility] Neutrophil Absolute 6.94(H) 1.70 - 6.10 x10(3)/mc L [facility] Lymph % 15.4 % [facility] Lymphocytes Abs 1.4 0.9 - 3.2 x10(3)/mc L [facility] Monocyte % 6.1 % [facility] Monocyte Abs 0.6 0.3 - 0.9 x10(3)/mc L [facility] Eos % 1.1 % [facility] Eosinophils Abs 0.1 0.0 - 0.4 x10(3)/ L [facility] Basophil % 0.6 % [facility] [...] x10(3)/ L [facility] Blood 10/30/2023 10:0 5 PM EDT 10/30/2023 10:12 PM EDT Narrative Resulting Agency Comment Spec In Lab Qamar Galalrdo MD HEMATOLOGY ORDERABLE S [facility] [place] [place] [address] * (ABNORMAL) Hemogram (10/30/2023 10:05 PM EDT) White Blood Cell 9.0 4.0 - 9.5 x10(3)/ L [facility] [...] Platelet 211 145 - 357 x10(3)/ L [facility] RDW Standard Deviation 53.6(H) 37.0 - 46.0 fL [facility] RDW coefficient of variation 14.6(H) 11.5 - 14.1 % [facility] Mean Platelet Volume 11.1 7.6 - 12.9 fL [facility] NRBC% auto 0.0 % [facility] NRBC Absolute 0.000 0.000 - 0.000 x10(3)/mc L [facility] Blood 10/30/2023 10:0 5 PM EDT 10/30/2023 10:12 PM EDT Narrative Resulting Agency Comment Spec In Lab Qamar Gallardo MD HEMATOLOGY ORDERABLE S Performing Organization Address City/[facility]/ZIP Co de Phone Number [facility] [place] [address] * Hemoglobin A1c (10/30/2023 10:05 PM EDT) [...] Mellitus, Diabetes Care 2013; 36: Suppl. 1, O41-08 Estimated Average Glucose See note mg/dL [facility] Comment: Estimated Average Glucose not appropriate for patients over 70 years of age. Blood 10/30/2023 10:0 5 PM EDT 10/30/2023 10:12 PM EDT Narrative Resulting Agency Comment Spec In Lab Rosa Cornejo MD CHEMISTRY ORDERABLE S Performing Organization Address City/[facility]/ZIP Co de Phone Number [facility] [place] [address] * Lipid Panel (Reflex Direct LDL) (10/30/2023 10:05 PM EDT) Cholesterol, Total 218 mg/dL [facility] Comment: Desirable: ? <200 mg/dL Borderline High: 200-239 mg/dL Higher: ?>nj=652 mg/dL Triglyceride 46 mg/dL [facility] Comment: Normal: ?<150 mg/dL Borderline High: 150-199 mg/dL High: ?200-499 mg/dL Very High: ? >vg=900 mg/dL HDL Cholesterol 64 mg/dL [facility] Comment: Females: High Risk: <50 mg/dL Males: High Risk: <40 mg/dL LDL Cholesterol 145 mg/dL [facility] Comment: Desirable: ? <100 mg/dL Above Desirable: 100-129 mg/dL Borderline High: 130-159 mg/dL High: ?160-189 mg/dL Very High: ? >hp=675 mg/dL Lipid Interpretation See Note [facility] [...] ACC/AHA Guidelines (most recently Feliciano et al. [facility] 03/23/22): For individuals with atherosclerotic cardiovascular disease (ASCVD)or LDL >uw=463 mg/dL, use a high-intensity statin (40-80 mg [...] CHEMISTRY ORDERABLE S [facility] [place] [address] * TSH [place] (10/30/2023 10:05 PM EDT) Thyroid Stimulating Hormone 3.35 0.27 - 4.20 mcIU/mL [facility] Comment: Reference Interval (mcIU/mL): Females: ??First Trimester: 0.23-3.88 ??Second Trimester: 0.22-3.90 ??Third Trimester: 0.44-4.66 Blood 10/30/2023 10:0 5 PM EDT 10/30/2023 10:12 PM EDT Narrative Resulting Agency Comment Spec In Lab Rosa Cornejo MD CHEMISTRY ORDERABLE S [facility] [place] [address] * pro-Brain Natriuretic Peptide (10/30/2023 10:05 PM EDT) NT-proBNP 375 <=449 pg/mL [facility] Blood 10/30/2023 10:0 5 PM EDT 10/30/2023 10:12 PM EDT Narrative Resulting Agency Comment Spec In Lab Rosa Cornejo MD CHEMISTRY ORDERABLE S Performing Organization Address [facility]/ZIP Co de Phone Number [facility] [place] [address] * (ABNORMAL) Comprehensive metabolic panel (non-fasting) (10/30/2023 10:05 PM EDT) Pathologist [facility] Glucose 121 65 - 199 mg/dL [facility] [...] ORDERABLE S Performing Organization Address City/[facility]/ZIP Co de Phone Number [facility] [place] [address] * Phosphorus (10/30/2023 10:05 PM EDT) Phosphorus 3.3 2.5 - 4.5 mg/dL [facility] Blood 10/30/2023 10:0 5 PM EDT 10/30/2023 10:12 PM EDT Narrative Resulting Agency Comment Spec In Lab Rosa Cornejo MD CHEMISTRY ORDERABLE S Performing Organization Address City/[facility]/ZIP Co de Phone Number [facility] [place] [address] * Magnesium (10/30/2023 10:05 PM EDT) Magnesium 0.86 0.69 - 1.07 mmol/L [facility] Blood 10/30/2023 10:0 5 PM EDT 10/30/2023 10:12 PM EDT Narrative Resulting Agency Comment Spec In Lab Rosa Cornejo MD CHEMISTRY ORDERABLE S [facility] [place] [address] * (ABNORMAL) Troponin (10/30/2023 10:05 PM EDT) Troponin-T, High Sensitivity 214(H) <=14 ng/L [facility] Test Catalog Reference: Fourth [place] Definition of Myocardial Infarction. Journal of the [place] College [employer] 2018;72:2576-2462 Blood 10/30/2023 10:0 5 PM EDT 10/30/2023 10:12 PM EDT Narrative Resulting Agency Comment Spec In Lab Rosa Cornejo MD CHEMISTRY ORDERABLE S [facility] [place] [address] * EKG 12 Lead (10/30/2023 8:21 PM EDT) Ventricular rate 49 BPM MUSE SYSTEM Atrial Rate 49 BPM MUSE SYSTEM P-R Interval 230 ms MUSE SYSTEM QRS Duration 96 ms MUSE SYSTEM Q-T Interval 526 ms MUSE SYSTEM QTC Calculated (Bezet) 475 ms MUSE SYSTEM Calculated P [place] 98 degrees MUSE SYSTEM Calculated R [place] -48 degrees MUSE SYSTEM Calculated T [place] -51 degrees MUSE SYSTEM INTERPRETATION Sinus bradycardia with 1st degree A-V block Incomplete right bundle branch block Left anterior fascicular block Moderate voltage criteria for LVH, may be normal variant ( R in aVL , Dolores product ) T wave abnormality, consider inferior ischemia T wave abnormality, consider anterolateral ischemia Prolonged QT Abnormal ECG When compared with ECG of 01-SEP-2007 11:02, Incomplete right bundle branch block is now Present Confirmed by MD NEFTALI, CHIDI ([id number]) on 10/31/2023 10:45:41 AM MUSE SYSTEM 10/30/2023 8:21 PM EDT 10/31/2023 10:45 AM EDT Rosa Cornejo MD ECG ORDERABLES Performing Organization Address City/[facility] Co de Phone Number MUSE SYSTEM [...] documented as of this encounter Care Teams Automation Test Developer Relationship Specialty Start Date End Date Rosie Mathews MD [address] [place] [address] PCP - General Family Medicine 11/25/17 11/23/23 documented as of this encounter
--- OUTSIDE RECORDS SUMMARY | 2024-02-27 09:55 | XMS_ITS | Encounter Summary ---
Author Organization [facility] [place] [address] Care Team Providers Care Rigger Name Role Phone Rosie Mathews MD Primary Care Provider [phone] Encounter Details Date Type Department Care Team (Late st Contact Info) Description 10/30/2023 [place] [address] Jose Lee MD [facility] [place] [address] Social History Tobacco Use Types Packs/Day Years [...] 10/30/2023 Referring Provider: Bree Patient Location: [facility] HPI: 83 yoF w/ PMHx of [...] in the patient condition. Jose Lee MD Telehealth Case Manager documented in this encounter Plan of Treatment Upcoming Encounters Date Type Department Care Team (Late st Contact Info) Description 03/29/2024 11:20 AM EDT Office Visit Cardiology at [address] [place] [address] Izaiah Meyer MD [facility] [place] [address] documented as of this encounter Visit Diagnoses Not on filedocumented in this encounter Care Teams Rigger Relationship Specialty Start Date End Date Rosie Mathews MD [address] [place] [address] PCP - General Family Medicine 11/25/17 11/23/23 documented as of this encounter
--- OUTSIDE RECORDS SUMMARY | 2024-02-27 09:55 | XMS_ITS | Encounter Summary ---
Author Organization [facility] Address [facility] [place] [address] Care Team Providers Care Grid Caster Name Role Phone Rosie Mathews MD Primary Care Provider [phone] Reason for Visit * Consultation (Routine) - Closed Specialty Diagnoses / Procedures Referred By John hunt Referred To Contact Audiology Diagnoses Hearing assessment and treatment options Karson John MD [address] [place] [address] [facility] [address] [place] [id number] Referral ID Status Reason Start Date Expiration Date V isits Requested Visits Authorized [id number] Closed Consult, Test & Treat [facility] 11/22/2017 11/22/2018 1 1 Encounter Details Date Type Department Care Team (Latest Contact Info) Description 11/30/2017 3:15 PM EDT Office Visit Audiology at [address] [address] Georgette Onofre AUD [facility] [place] [address] Sensorineural hearing loss, bilateral; Bilateral [...] first 10-15 years. Ms. Goodrich obtained binaural [facility] in-the-ear hearingaids nine years ago in [place], [place]. She stated she continues to experience [...] tone audiogram. SNR loss is the increased [id number] ratio required by an individual to understand [...] not hesitate to contact this Section at [phone] if there are questions regarding this report or its recommendations. Romeo Becker [place] [id number] Attachment: audiogram CC: MD Karson Loo MD Laurmarco a Catherine Edvinjonatanjosue [facility] [address] [place] [phone] documented in this encounter Plan of Treatment Upcoming Encounters Date Type Department Care Team (Late st Contact Info) Description 03/29/2024 11:20 AM EDT Office Visit Cardiology at [address] [place] [address] Izaiah Meyer MD [facility] [place] [address] documented as of this encounter Procedures Procedure [...] tinnitus documented in this encounter Care Teams Grid Caster Relationship Specialty Start Date End Date Rosie Mathews MD [address] [place] [address] PCP - General Family Medicine 11/25/17 11/23/23 documented as of this encounter
--- OUTSIDE RECORDS SUMMARY | 2024-02-27 09:55 | XMS_ITS | Encounter Summary ---
Author Organization [facility] Address [address] [place] [address] Care Team Providers Care Window Decorator Name Role Phone Kirsten Bateman MD Primary Care Provider [phone] Encounter Details Date Type Department Care Team (Late st Contact Info) Description 01/27/2021 Lab Requisition [facility] Pathology & Laboratory Medicine - [facility] [address] [place] [address] Outr Resulting Lab, Provider Social History Tobacco [...] Outr Resulting Lab MICROBIOLOGY - GENERAL ORDERABLES [facility] [address] [place] [address] * COVID-19 TESTING (01/26/2021 16:45 EDT) COVID-19 rt-PCR Result Negative Negative 01/28/2021 13:31 EDT [facility] Comment: This test has [...] developed and its performance characteristics determined by [facility]. It has not been cleared or [...] This test is based on the [facility] COVID-19 Emergency Use Authorization (EUA) assay, with minor modification as defined by the FDA Performed on the Quant[employer]ical[employer] 7 Pro RT-PCR System. Performing Lab [facility] Lab 01/28/2021 13:31 EDT [facility] Swab 01/26/2021 16:4 5 EDT 01/27/2021 15:46 EDT Provider Outr Resulting Lab MICROBIOLOGY - GENERAL ORDERABLES [facility] [address] [place] [address] documented in this encounter Visit Diagnoses Not on filedocumented in this encounter Care Teams Window Decorator Relationship Specialty Start Date End Date Kirsten Bateman MD [address] [place] [address] PCP - General 01/13/10 documented as of this encounter
--- OUTSIDE RECORDS SUMMARY | 2024-02-27 09:55 | XMS_ITS | Encounter Summary ---
Author Organization [facility] Address [address] [place] [address] Care Team Providers Care Graphic Specialist Name Role Phone Kirsten Bateman MD Primary Care Provider [phone] Reason for Visit * Reason Comments Hearing Loss tinnitus Encounter Details Date Type Department Care Team (Latest Contact Info) Description 01/15/2010 10:10 EDT Office Visit [address] [address] Unknown, ProviderMD Ray Farooq MD [address] [place] [address] [address] Sensorineural hearing loss, bilateral; Subjective [...] Ray Farooq MD - 01/28/2010 1108 EDT [facility] PROGRESS/FOLLOWUP NOTE - 01/15/2010 CHIEF COMPLAINT: [...] Farooq MD - Ray Farooq MD - [facility] Job ID: SM Doc ID: [id number] Ext Doc ID: [id number] cc: Kirsten Bateman MD * Ray Farooq [...] tinnitus documented in this encounter Care Teams Graphic Specialist Relationship Specialty Start Date End Date Kirsten Bateman MD [address] [place] [address] PCP - General 01/13/10 documented as of this encounter
--- OUTSIDE RECORDS SUMMARY | 2024-02-27 09:55 | XMS_ITS | Encounter Summary ---
Author Organization [facility] Address [address] [place] [address] Care Team Providers Care Firearms Specialist Name Role Phone Unavailable Primary Care Provider Unavailabl e Encounter Details Date Type Department Care Team (Late st Contact Info) Description 01/10/2008 Before PRISM Converted Visit (Maple) [facility] - Maple conversion [address] [place] [address] Ray Farooq MD [address] [place] [address] Social History Tobacco Use Types Packs/Day Years Used Date Smoking Tobacco: Never Assessed Sex and Gender Information Value Date Recorded Sex Assigned at Not on file Gender Identity Not on file Sexual Orientation Not on file documented as of this encounter Consult Notes * Ray Farooq MD - 03/21/2009 7848 EDT [facility] - 01/10/2008 Kirsten Bateman MD [facility] [address] [place] [address] Bateman: Chief complaint: Hearing loss. History of present illness: Ovuqp-dhkfz-soml-old female with along history of bilateral hearing [...] aspirin, vitamin E, C, B12, B125 complex, [place], EPA fatty acid, coral calcium complex, potassium chloride, Diovan, and hormone essentials. She has drug allergies to cortisone, Percocet, and hydrocodone. Family history is significant for cancer. Social history: The patient is a nonsmoker, nondrinker. She lives in [place]. Review of systems is significant for allergies, [...] Tosin Farooq MD - [facility] Job ID: [id number] Doc ID: [id number] cc: Kirsten Bateman MD cc: Kirsten Bateman MD documented in this encounter Plan of Treatment Not on file documented as of this encounter Visit Diagnoses Not on filedocumented in this encounter
--- OUTSIDE RECORDS SUMMARY | 2024-02-27 09:55 | XMS_ITS | Encounter Summary ---
Author Organization [facility] Address [facility] [place] [address] Care Team Providers Care Military Technology Specialist Name Role Phone Rosie Mathews MD Primary Care Provider [phone] Encounter Details Date Type Department Care Team (Late st Contact Info) Description 10/30/2023 [place] [address] Jose Lee MD [facility] [place] [address] Social History Tobacco Use Types Packs/Day Years Used Date Smoking Tobacco: Former Smokeless Tobacco: Never Alcohol Use Standard Drinks/Week Comments Not Currently 0 (1 standard drink = 0.6 oz pur e alcohol) [facility] Utilities Answer Date Recorded In the past 12 months has th e [employer], gas, oil, or water [employer] threatened to shut off services in your [...] AM EDT Office Visit Cardiology at [address] [address] Izaiah Meyer MD [facility] [place] [address] documented as of this encounter Visit Diagnoses Not on filedocumented in this encounter Additional Health Concerns Infection Onset Date Last Indicated Resolved Time Rule Out Respiratory 11/02/2023 11/02/2023 024 12:22 PM EDT Rule Out COVID-19 11/02/2023 11/02/2023 11/02/2023 12:22 PM EDT documented as of this encounter Care Teams Military Technology Specialist Relationship Specialty Start Date End Date Rosie Mathews MD [address] [place] [address] PCP - General Family Medicine 11/25/17 11/23/23 documented as of this encounter
--- OUTSIDE RECORDS SUMMARY | 2024-02-27 09:55 | XMS_ITS | Encounter Summary ---
Author Organization [facility] Address [facility] [place] [address] Care Team Providers Care Commercial Insurance Underwriter Name Role Phone Rosie Mathews MD Primary Care Provider [phone] Encounter Details Date Type Department Care Team (Late st Contact Info) Description 10/30/2023 External Results Transfer Center [facility] [place] [address] Social History Tobacco Use Types Packs/Day Years Used Date Smoking Tobacco: Former Smokeless Tobacco: Never Alcohol Use Standard Drinks/Week Comments Not Currently 0 (1 standard drink = 0.6 oz pur e alcohol) [facility] Utilities Answer Date Recorded In the past 12 months has e [employer], gas, oil, or water [employer] threatened to shut off services in your [...] place to sleep or slept in a skilled nursing (including now)? No 11/01/2023 DH IPV Inpatient [...] AM EDT Office Visit Cardiology at [address] [address] Izaiah Meyer MD [facility] [place] [address] documented as of this encounter Procedures Procedure [...] on filedocumented in this encounter Care Teams Commercial Insurance Underwriter Relationship Specialty Start Date End Date Rosie Mathews MD [address] [place] [address] PCP - General Family Medicine 11/25/17 11/23/23 documented as of this encounter
--- OUTSIDE RECORDS SUMMARY | 2024-02-29 10:15 | XMS_ITS | Encounter Summary ---
Author Organization [facility] Address [facility] [place] [address] Care Team Providers Care Mental Health Director Name Role Phone Rosie Mathews MD Primary Care Provider [phone] Encounter Details Date Type Department Care Team (Late st Contact Info) Description 11/18/2023 External Results Administration [facility] [place] [address] Social History Tobacco Use Types Packs/Day Years [...] AM EDT Office Visit Cardiology at [address] [phone] Izaiah Meyer MD [facility] [place] [address] documented as of this encounter Procedures Procedure Name Priority Date/Time Associated Diagnosis Comments ECG SCAN Routine 11/18/2023 4:50 PM EDT documented in this encounter Results * Scan Doc: ECG (11/18/2023 4:50 PM EDT) Historical Provider MEDIA MGR SCAN EX T ORDR/RSLT documented in this encounter Visit Diagnoses Not on filedocumented in this encounter Care Teams Mental Health Director Relationship Specialty Start Date End Date Rosie Mathews MD [address] [place] [address] PCP - General Family Medicine 11/25/17 11/23/23 documented as of this encounter
--- OUTSIDE RECORDS SUMMARY | 2024-02-29 10:15 | XMS_ITS | Clinical Summary ---
Author Organization [facility] Address [facility] [place] [address] Care Team Providers Care Coal Chemist Name Role Phone Masood Pierson MD Primary Care Provider [phone] Allergies Active Allergy Reactions Criticality Noted Date [...] 3.5 x 15 Andrea 3.5 x 15 Andrea RCA Mid AoCTO. [...] Encounters Date Type Department Care Team Description 02/27/2024 Telephone Cardiology at [place] [address] [place] [address] Izaiah Meyer MD 02/24/2024 11:10 PM EDT Ancillary Procedure Radiology Library at [facility] [place] [address] Masood Pierson MD 02/24/2024 External Results Transfer Center [facility] [place] [address] 12/16/2023 Telephone Cardiology at [address] [place] [address] Izaiah Meyer MD from Last 3 Months Social History Tobacco Use Types Packs/Day Years Used Date Smoking Tobacco: Former Smokeless Tobacco: Never Alcohol Use Standard Drinks/Week Comments Not Currently 0 (1 standard drink = 0.6 oz pur e alcohol) [facility] Utilities Answer Date Recorded In the past 12 months has th e [employer], gas, oil, or water [employer] threatened to shut off services in your [...] AM EDT Office Visit Cardiology at [address] [place] [address] Izaiah Meyer MD [facility] [place] [address] Health Maintenance Due Date Last Done Comments Pneumoccocal Vaccine: 65+ (1 of 2 - PCV) 1945 Tdap adult 1958 Tetanus vaccine 1958 Zoster vaccine (1 of 2) 1989 Advance Directive 1994 Bone Density Scan 2004 Covid-19 Vaccine ( season) 2024 Influenza (Flu) vaccine (1 o [...] Other Historical Provider EXTERNAL CARDIOLO GY RESULT * Film Library- Storage Only CT Chest (02/24/2024 11:05 PM EDT) Narrative RAD - 02/24/2024 11:05 PM EDT This exam is auto-finalizing. It's purpose is for storage only. Masood Pierson MD IMG FILM LIBRARY ORD ERABLES Performing Organization Address City/State/[facility] Co de Phone Number [place], [place] from Last 3 Months Advance Directives * Attempt Cardiopulmonary Resuscitation - Inpatient (Latest Code Status on File) Date Activated Date Inactivated Comments 10/30/2023 9:58 PM 11/03/2023 7:13 PM Question Answer Comments Code Status decision made by: Patient Care Teams Coal Chemist Relationship Specialty Start Date End Date Masood Pierson MD [address] [place], [place] [address] PCP - General Family Medicine 11/24/23
--- OUTSIDE RECORDS SUMMARY | 2024-02-29 10:15 | XMS_ITS | Encounter Summary ---
Author Organization [facility] Address [facility] [place] [address] Care Team Providers Care Access Services Assistant Name Role Phone Masood Pierson MD Primary Care Provider [phone] Encounter Details Date Type Department Care Team (Late st Contact Info) Description 02/24/2024 External Results Transfer Center [facility] [place] [id number] Social History Tobacco Use Types Packs/Day Years Used Date Smoking Tobacco: Former Smokeless Tobacco: Never Alcohol Use Standard Drinks/Week Comments Not Currently 0 (1 standard drink = 0.6 oz pur e alcohol) [facility] Utilities Answer Date Recorded In the past 12 months has Environmental Operations, gas, oil, or water [employer] threatened to shut off services in your [...] AM EDT Office Visit Cardiology at [address] [place] [phone] Izaiah Meyer MD [facility] [place] [address] documented as of this encounter Procedures Procedure Name Priority Date/Time Associated Diagnosis Comments MISC EXTERNAL CARDIOLOGY RESULT Routine 02/24/2024 11:10 PM EDT documented in this encounter Results * External Cardiology Result (02/24/2024 11:10 PM EDT) Anatomical Region Laterality Modality Other Historical Provider EXTERNAL CARDIOLO GY RESULT documented in this encounter Visit Diagnoses Not on filedocumented in this encounter Care Teams Access Services Assistant Relationship Specialty Start Date End Date Masood Pierson MD [address] [place] [address] PCP - General Family Medicine 11/24/23 documented as of this encounter
--- OUTSIDE RECORDS SUMMARY | 2024-02-29 10:15 | XMS_ITS | Encounter Summary ---
Author Organization [facility] Address [facility] [place] [address] Care Team Providers Care Deck Lid Fitter Name Role Phone Rosie Mathews MD Primary Care Provider [phone] Reason for Referral * Consultation (Routine) - Authorized Specialty Diagnoses / Procedures Referred By Contac t Referred To Contact Cardiology Diagnoses 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 Rosa Hugo MD [facility] [place] [address] Cardiac Rehab, [address] [place] [address] Referral ID Status Reason Start Date Expiration Date Visits Requested Visits Authorized [id number] Authorized Consult, Test & Treat Non PCP 11/03/2023 05/01/2024 36 36 * Home Health Care (Routine) - Authorized Specialty Diagnoses / Procedures Referred By Contac t Referred To Contact Diagnoses Unstable angina Rosa Hugo MD [facility] [place] [address] Referral ID Status Reason Start Date Expiration Date Visits Requested Visits Authorized [id number] Authorized Consult, Test & Treat 11/03/2023 05/01/2024 999 999 Reason for Visit * Auth/Cert (Routine) Specialty Diagnoses / Procedures Referred By John hunt Referred To Contact Diagnoses Unstable angina Chest pain NSTEMI Procedures CARDIAC CATHETERIZATION Rosa Dewey MD [facility] [place] [address] [facility] Referral ID Status Reason Start Date Expiration Date Visits Re quested Visits Authorized [id number] 1 1 Encounter Details Date Type Department Care Team (Latest Contact Info) Description 10/30/2023 5:11 PM EDT - 11/03/2023 5:13 PM EDT Hospital Encounter Heart and Vascular Unit Level 4 [place] [address] Rosa Dewey MD [facility] [place] [address] Jean Laboy MD [facility] [place] [address] Rosa Hugo MD [facility] [place] [address] 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; Tachycardia; Unstable angina Discharge Disposition: Home Social History Tobacco Use Types Packs/Day Years Used Date Smoking Tobacco: Former Smokeless Tobacco: Never Alcohol Use Standard Drinks/Week Comments Not Currently 0 (1 standard drink = 0.6 oz pur e alcohol) [facility] Utilities Answer Date Recorded In the past 12 months has e Clari, gas, oil, or water [employer] threatened to shut off services in your [...] place to sleep or slept in a fdc (including now)? No 11/01/2023 DH IPV Inpatient [...] [facility] a transfer from [facility] as a possible STEMI alert with acute onset chest pain. The patient reports that her symptoms initially began on Tuesday when she was walking to [employer] and experienced bilateral arm heaviness while walking with no other symptoms. Then, this afternoon shereports developing bilateral achy shoulder pain and nonradiating substernal left-sided chest pressure that was 7/10 in severity after coming home from [facility]. The patient denies any associated fevers, chills, diaphoresis, lightheadedness/dizziness, syncope/presyncope, dyspnea (either at rest or on exertion), palpitations, orthopnea, or PND. The patient subsequently presented to [facility] as a walk-in for [...] the patient was taken directly to the Refinery Superintendent. Two lesions were discovered: one in the prox RCA (felt to almost be a CRAFT COORDINATOR but they were able to wire, [...] dose administered prior to arrival in the medical laboratory technicians. Recommended anti-platelet/anti-thrombotic regimen: Continue aspirin 81 mg [...] and low lung volumes. Findings similar to assistant women's tennis coach radiograph from CT 10/30/2023. Pending Studies and [...] 10:40 AM Izaiah Meyer MD Cardiology at [facility] Arrive at: [facility] [address] [phone] Future Orders Complete By Expires Referral to Cardiac Rehab [[id number] Custom] As directed Process Instructions: If no [...] Santos for admission to Home Health. [address] [facility] [phone] (home) Date of : 1940 Inpatient DOCUMENTATION FOR VNA SERVICES (INCLUDING THOSE PATIENTS WITH MEDICARE COVERAGE REQUIRING HOME VNA SERVICES AND/OR HOSPICE SERVICES) PATIENT'S LOCATION: Adin Santos [address] [facility] [phone] (home) Cell: Telephone Information: Sales Enablement Lead's Name: self In discussion with the attending physician, it is certified that this patient is under their care and that they, or a Nurse Practitioner, Clinical Nurse specialist or Physician Manager Of Network who is working directly with them, had [...] health issues HOME HEALTH CARE AGENCY: [facility] [address] [place] [address] START OF CARE: within 24-48 hours of [...] Rosie Mathews MD [address] / [facility] [address] . All A agencies which [...] Mathews MD / Dr. Masood Pierson [address] [place] [address] 11/09/23 1:55 PM arrival for 2:10 PM appointment Construction Materials Tester: Izaiah Meyer MD [address] [place] [id number] , 11/24/2023 10:40 AM Your Inpatient Medical Team at [facility] Name(s) of your inpatient provider(s): Attending physician: Rosa Hugo MD Resident physicians: Emile Robles MD; Elmer Tamez MD If you have non-emergent questions, prior to your follow-up visit call: Tuesday-Tuesday between the hours of 8AM-5PM please call the Cardiology Clinic [phone] to speak with a nurse. All other hours please call the Hospital Rn Travel [phone] and ask to speak to the scheduler maintenance on-call. Your Primary Care Provider Rosie Mathews MD [phone] For questions regarding this document or issues relating to this hospitalization on the Medical Service, please contact your inpatient physician through the [facility] Rn Travel . Issues afterhours and on weekends will be handled by the Construction Materials Tester staff on-call. Associated attestation - Rosa Hugo [...] MD / Dr. Masood Pierson [address] [place] [address] 11/09/23 1:55 PM arrival for 2:10 PM appointment Construction Materials Tester: Izaiah Meyer MD [address] [place] [address] , 11/24/2023 10:40 AM Your Inpatient Medical Team at [facility] Name(s) of your inpatient provider(s): Attending physician: Rosa Hugo MD Resident physicians: Emile Robles MD; Elmer Tamez MD If you have non-emergent questions, prior to your follow-up visit call: Tuesday-Tuesday between the hours of 8AM-5PM please call the Cardiology Clinic [phone] to speak with a nurse. All other hours please call the Hospital Rn Travel [phone] and ask to speak to the scheduler maintenance on-call. Your Primary Care Provider Rosie Mathews MD [phone] documented in this encounter Medications at Time [...] [facility] as a transfer from [facility] as a possible STEMI [...] [facility] transfer from [facility] as a possible STEMI [...] Resident on Cardiology Service Cardiology S1 (Pager [phone]) Note written in conjunction with Claudio Perla [facility] Medical Student, MS3 Associated attestation - [...] Nirmala Webb - 11/01/2023 11:25 AM EDT Graphic Production Artist Encounter Note Patient Name: Adin Santos : [id number] MR#: [id number] Admit Date: 10/30/2023 5:11 PM Hospital Day 2 days Narrative: Self initiated visit to patient for Spiritual support in a regular unit rounds. Assessment: Patient is in the bathroom at the time of this visit. Not a good time for Bullet Assembly Press Operator visit. Intervention and Outcome: An attempted visit [...] [facility] a transfer from [facility] as a possible STEMI [...] and low lung volumes. Findings similar to assistant women's tennis coach radiograph from CT 10/30/2023. Scheduled Medications: [AUG [...] [facility] a transfer from [facility] as a possible STEMI [...] Resident on Cardiology Service Cardiology S1 (Pager [phone]) Note written in conjunction with Claudio Perla [facility] Medical Student, MS3 Associated attestation - [...] [facility] a transfer from [facility] as a possible STEMI alert with acute onset chest pain. Active Problems: Active Hospital Problems Diagnosis Unstable angina Resolved Hospital Problems No resolved problems to display. 24 hr events: - Cath'd yesterday with lesion in the proximal RCA (initially thought it was CRAFT COORDINATOR but they were ableto wire, balloon [...] and low lung volumes. Findings similar to assistant women's tennis coach radiograph from CT 10/30/2023. TTE (05/13): Interpretation [...] [facility] as a transfer from [facility] as a possible STEMI [...] Resident on Cardiology Service Cardiology S1 (Pager [phone]) Note written in conjunction with Claudio Perla [facility] Medical Student, MS3 Associated attestation - [...] PCP: Rosie Mathews MD PCP phone number: [phone] Date of Admission: 10/30/2023 ( Hospital Day 0 days ) Attending:Rosa Cornejo MD ID: Adin Santos is a 83 y.o. female PMH significant for hypertension and hyperlipidemia who presented to [facility] as a transfer from [facility] as a possible STEMI alert with acute onset chest pain. The patient reports that her symptoms initially began on Tuesday when she was walking to [employer] and experienced bilateral arm heaviness while walking with no other symptoms. Then, this afternoon shereports developing bilateral achy shoulder pain and nonradiating substernal left-sided chest pressure that was 7/10 in severity after coming home from [facility]. The patient denies any associated fevers, chills, diaphoresis, lightheadedness/dizziness, syncope/presyncope, dyspnea (either at rest or on exertion), palpitations, orthopnea, or PND. The patient subsequently presented to [facility] as a walk-in for [...] the patient was taken directly to the Refinery Superintendent. 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 Findings similar to assistant women's tennis coach radiograph from CT 10/30/2023. Assessment & Plan: Adin Santos is a 83 y.o. female PMH significant for hypertension and hyperlipidemia who presented to [facility] as a transfer from [facility] as a possible STEMI [...] information for follow-up Home Health & Hospice, [place] [address] [place] [address] TANESHA BOYCE confirmed with [facility] that they will see the patient [...] N/A Patient is insured through: Primary Insurance: [employer] MANAGED MEDICARE Payor: [email or web address] MEDICARE / Plan: [employer] MA[employer]ED MEDICARE PPO / Product Type: *No [...] in the room. Electrolytes replaced, see MAR. casting house laborer sites remained C/D/I with baseline ecchymosis unchanged. Pt complained of back pain, lidocaine patch given. Right IV infiltrated during infusion, patient is marked with sharpie, IV removed. See flowsheet for I+O's and safety rounding. Patient is able to make needs known and call capps within reach. PLAN MOVING FORWARD: Monitor Tele, control BP, monitor medical laboratory technicians sites, D/C Planning INDIVIDUALIZED FALL PREVENTION INTERVENTIONS: [...] and above on RA. PT went to medical laboratory technicians today. Left fem site oozed throughout shift, [...] MOVING FORWARD: Monitor Tele, control BP, monitor medical laboratory technicians sites, D/C Planning INDIVIDUALIZED FALL PREVENTION INTERVENTIONS: [...] surrogate would be surrogate decision maker per [place] surrogate decision making law. (Only good for 180 days) Any patient receiving care in [place] must abide by [place] law. The hierarchy for surrogate decision making [...] (i) The agent with financial power of litigation attorney or a conservator appointed in accordance [...] steady place to sleep or slept in military health system (including now)?: No In the past 12 [...] toilet seat Home Address confirmed as: [address] [place] [phone] Social & Family Supports: All names listed below confirmed with patient as current and correct Extended Emergency Contact Information Primary Emergency Contact: Iris Downing Address: [address], [place] [address] [place] [address] Mobile Relation: Child Secondary Emergency Contact: Karen More Address: [address] [facility] Mobile Relation: Child Current Care Provided by: self Provides Primary Care For: no one Caregiver if needed: child(emmanuel), adult Quality of Family relationships: involved, supportive Community Resources being provided currently: other (see comments) (receives [facility] services at home (1xweekly)) Behavioral Health [...] Insurance: N/A Prescription Coverage: Yes Preferred Pharmacy: [id number] - [place], [place] - [address] [facility] [address] [facility] [address] Status: Patient is a : No Primary Care Provider listed: Masood Pierson MD [phone] Patient/Caregiver Goals of Treatment: home when MR Potential Needs for Transition of Care: home health care Agency Referrals: Not Applicable I have met with the patient to: discuss discharge planning needs. provide the [facility], Office of Care Management letter from the Travel Service Consultant pertaining to rehab referrals. provide a letter describing our affiliations within the [facility] and educate about their right to choose where referrals are sent. provide a list of Home Health Agencies / Durable Medical Equipment vendors which serve their preferred geographic area. provided patient with [facility] Star Quality Rating handout. They have requested referrals to: [facility] [address] [place] [address] Note routed to a Lead Military Analyst who will communicate referrals to facilities and [...] results. PO hydralazine added for BP control. casting house laborer sites remain C/D/I, ecchymosis unchanged th roughout shift. See flowsheet for I+O's and safety rounding. Patient is able to make needs known and call capps within reach. PLAN MOVING FORWARD: Monitor Tele, control CP and BP, NPO at MD for cath, monitor medical laboratory technicians sites, D/C Planning INDIVIDUALIZED FALL PREVENTION INTERVENTIONS: [...] AM EDT Office Visit Cardiology at [address] [place] [address] Izaiah Meyer MD [facility] [place] [address] Scheduled Referrals Name Type Priority Associated Diagnoses [...] [facility] Lymph % 15.2 % [facility] Lymphocytes Abs 1.3 0.9 - 3.2 x10(3)/ L [facility] Monocyte % 16.9 % [facility] Monocyte Abs 1.4(H) 0.3 - 0.9 x10(3)/ L [facility] Eos % 3.7 % [facility] Eosinophils Abs 0.3 0.0 - 0.4 x10(3)/[facility] Basophil % 0.5 % [facility] [...] ORDERABLE S [facility] [place] [address] * (ABNORMAL) Hemogram (11/03/2023 3:46 AM EDT) [...] HOSPITAL LABORATORY Platelet 181 145 - 357 x10(3)/[facility] RDW Standard Deviation 54.7(H) 37.0 - 46.0 [facility] RDW coefficient of variation 14.6(H) 11.5 - 14.1 % [facility] Mean Platelet Volume 11.2 7.6 - 12.9 [facility] NRBC% auto 0.0 % [facility] NRBC Absolute 0.000 0.000 - 0.000 x10(3)/ L [facility] Blood 11/03/2023 3:46 AM EDT 11/03/2023 4:11 AM EDT Narrative Resulting Agency Comment Spec In Lab Qamar Gallardo MD HEMATOLOGY ORDERABLE S [facility] [place] [address] * Phosphorus (11/03/2023 3:46 AM EDT) Phosphorus 3.2 2.5 - 4.5 mg/dL [facility] Comment:result rechecked-KS Blood 11/03/2023 3:46 AM EDT 11/03/2023 4:11 AM EDT Narrative Resulting Agency Comment Spec In Lab Rosa Cornejo MD CHEMISTRY ORDERABLE S [facility] [place] [address] * Magnesium (11/03/2023 3:46 AM EDT) Magnesium 0.90 0.69 - 1.07 mmol/L [facility] Blood 11/03/2023 3:46 AM EDT 11/03/2023 4:11 AM EDT Narrative Resulting Agency Comment Spec In Lab Rosa Cornejo MD CHEMISTRY ORDERABLE S Performing Organization Address City/[facility]/ZIP Co de Phone Number [facility] [place] [address] * (ABNORMAL) Basic Metabolic Panel (non-fasting) (11/03/2023 [...] ORDERABLE S [facility] [place] [phone] * EKG 12 Lead (11/02/2023 12:44 PM EDT) Ventricular rate 83 BPM MUSE SYSTEM Atrial Rate 83 BPM MUSE SYSTEM P-R Interval 216 ms MUSE SYSTEM QRS Duration 90 ms MUSE SYSTEM Q-T Interval 384 ms MUSE SYSTEM QTC Calculated (Bezet) 451 ms MUSE SYSTEM Calculated P [place] 92 degrees MUSE SYSTEM Calculated R [place] -51 degrees MUSE SYSTEM Calculated T [place] -33 degrees MUSE SYSTEM INTERPRETATION Sinus rhythm with 1st degree A-V block with Premature atrial complexes Left axis deviation Moderate voltage criteria for LVH, may be normal variant ( R in aVL , Ifeanyi product ) Anterolatera l infarct (cited on or before 01-NOV-2023) Abnormal ECG When compared with ECG of 01-NOV-2023 22:10, Premature atrial complexes are now Present MO interval has increased Vent. rate has decreased BY ??56 BPM Confirmed by MD Kevin, Esteban ([id number]) on 11/02/2023 1:32:10 PM MUSE SYSTEM 11/02/2023 12:4 4 PM EDT 11/02/2023 1:32 PM EDT Rosa Hugo MD ECG ORDERABLES MUSE SYSTEM * (ABNORMAL) Urinalysis Microscopic Exam (11/02/2023 11:40 AM EDT) RBC, Urine <1 0 - 4 /HPF [facility] Comment: Interpret results with caution, microscopic results are from suboptimal specimen volume WBC, Urine 16(H) 0 - 5 /HPF [facility] Comment: Interpret results with caution, microscopic results are from suboptimal specimen volume Bacteria, Urine Many(A) None /HPF [facility] Squamous Epithelial Cells Raw Data, Urine 10(H) <=4 /HPF [facility] Hyaline Casts, Urine 2 0 - 2 /LPF [facility] Comment: Interpret results with caution, microscopic results are from suboptimal specimen volume Clean Catch Urine 11/02/2023 11:40 AM EDT 11/02/2023 12:05 PM EDT Narrative Resulting Agency Comment Spec In Lab Elmer Tamez MD URINE ORDERABLES Performing Organization Address City/[facility] Co de Phone Number [facility] [place] [address] * (ABNORMAL) Urinalysis with reflex Culture (11/02/2023 [...] HOSPITAL LABORATORY Leukocytes, Urine Dipstick Small(A) Negative [facility] Appearance, Urine Dipstick Cloudy(A) Clear [facility] Specific [place] Urine Automated >=1.030(A) 1.005 - 1.030 [facility] Color, Urine Dipstick Dark Yellow Yellow [facility] Reflex to Culture Yes [facility] Clean Catch Urine 11/02/2023 11:40 AM EDT 11/02/2023 12:04 PM EDT Narrative Resulting Agency Comment Spec In Lab Rosa Hugo MD URINE ORDERABLES Performing Organization Address City/State/[facility] Co de Phone Number [facility] [place] [address] * Respiratory Panel PCR (11/02/2023 10:15 AM EDT) Respiratory Panel Source TESTER EQUIPMENT Swab [facility] Respiratory Panel PCR Negative Negative [facility] Comment: Respiratory Panels are performed on the Amprius, using multiplexed PCR nucleic acid detection. ??Negative [...] performed using the BioFire Respiratory Panel 2.1 ([employer]) as authorized by the FDA issued Emergency [...] fact sheets at the following FDA website: https://www.fda.gov/medical-devices/nlerktcnjyb-esdzohj-8910-snxcm-63-aokbkxjrv- use-a bimpwmkebysau-tkuaifp-izqhuaq/jphnc-acnwswxfsql-iauy Human Metapneumovirus Not Detected Not Detected [facility] [...] ERAL ORDERABLES [facility] [place] [address] * XR Chest One View (11/02/2023 2:51 AM EDT) WORKSTATION ID [id number] RAD Anatomical Region Laterality Modality Chest N/A [...] who have questions please contact the health hearing care practitioner that requested your imaging first. ? Narrative [...] patients who have questions please contactthe health hearing care practitioner that requested your imaging first. Rosa Hugo MD IMG DX ORDERABLES * (ABNORMAL) Differential, Automated (11/02/2023 12:35 AM EDT) Neutrophil % 76.5 % [facility] Neutrophil Absolute 7.69(H) 1.70 - 6.10 x10(3)/mc L [facility] Lymph % 8.3 % [facility] Lymphocytes Abs 0.8(L) 0.9 - 3.2 x10(3)/mc L [facility] Monocyte % 12.9 % [facility] Monocyte Abs 1.3(H) 0.3 - 0.9 x10(3)/mc L [facility] Eos % 1.4 % [facility] Eosinophils Abs 0.1 0.0 - 0.4 x10(3)/mc L [facility] Basophil % 0.4 % [facility] [...] S [facility] [place] [address] * (ABNORMAL) Hemogram (11/02/2023 12:35 AM EDT) [facility] NRBC% auto 0.0 % [facility] NRBC Absolute 0.000 0.000 - 0.000 x10(3)/ L [facility] Blood 11/02/2023 12:3 5 AM EDT 11/02/2023 12:43 AM EDT Narrative Resulting Agency Comment Spec In Lab Qamar Gallardo MD HEMATOLOGY ORDERABLE S [facility] [place] [address] * (ABNORMAL) Phosphorus (11/02/2023 12:35 AM EDT) Phosphorus 1.6(L) 2.5 - 4.5 mg/dL [facility] Blood 11/02/2023 12:3 5 AM EDT 11/02/2023 12:43 AM EDT Narrative Resulting Agency Comment Spec In Lab Rosa Cornejo MD CHEMISTRY ORDERABLE S [facility] [place] [address] * Magnesium (11/02/2023 12:35 AM EDT) Pathologist [facility] Magnesium 0.87 0.69 - 1.07 mmol/L [facility] Blood 11/02/2023 12:3 5 AM EDT 11/02/2023 12:43 AM EDT Narrative Resulting Agency Comment Spec In Lab Rosa Cornejo MD CHEMISTRY ORDERABLE S Performing Organization Address City/[facility]/ZIP Co de Phone Number [facility] [place] [address] * Basic Metabolic Panel (non-fasting) (11/02/2023 12:35 [...] ORDERABLE S [facility] [place] [address] * Blood culture (11/02/2023 12:35 AM EDT) Blood Culture No growth at 5 days. [facility] Blood 11/02/2023 12:3 5 AM EDT 11/02/2023 1:55 AM EDT Comment:#2 site ukn Narrative Resulting Agency Comment Spec In Lab Rosa Hugo MD MICROBIOLOGY - BLO OD ORDERABLES [facility] [place] [address] * Blood culture (11/02/2023 12:15 AM EDT) Blood Culture No growth at 5 days. [facility] Blood 11/02/2023 12:1 5 AM EDT 11/02/2023 1:54 AM EDT Comment:#[email or web address] unk Narrative Resulting Agency Comment Spec In Lab Rosa Hugo MD MICROBIOLOGY - BLO OD ORDERABLES Performing Organization Address City/[facility]/ZIP Co de Phone Number [facility] [place] [address] * EKG 12 Lead (11/01/2023 10:10 PM EDT) Ventricular rate 139 BPM MUSE SYSTEM Atrial Rate 139 BPM MUSE SYSTEM P-R Interval 168 ms MUSE SYSTEM QRS Duration 84 ms MUSE SYSTEM Q-T Interval 286 ms MUSE SYSTEM QTC Calculated (Bezet) 435 ms MUSE SYSTEM Calculated R [place] -59 degrees MUSE SYSTEM Calculated T [place] -27 degrees MUSE SYSTEM INTERPRETATION Mid-RP tachycardia, [...] interpretation Confirmed by fellow MD Andrés, Enriqueta ([id number]) on 11/04/2023 7:57:50 AM Confirmed by MD Gerardo, Shameka ([id number]) on 11/04/2023 4:32:03 PM MUSE SYSTEM 11/01/2023 10:1 0 PM EDT 11/04/2023 4:32 PM EDT Rosa Cornejo MD ECG ORDERABLES Performing Organization Address City/[facility]/ZIP Co de Phone Number MUSE SYSTEM * [...] HOSPITAL LABORATORY Platelet 197 145 - 357 x10(3)/[facility] LABORATORY RDW Standard Deviation 54.0(H) 37.0 - 46.0 fL [facility] RDW coefficient of variation 14.6(H) 11.5 - 14.1 % [facility] Mean Platelet Volume 11.2 7.6 - 12.9 fL [facility] NRBC% auto 0.0 % [facility] NRBC Absolute 0.000 0.000 - 0.000 x10(3)/[facility] LABORATORY Blood 11/01/2023 10:0 6 PM EDT 11/01/2023 10:22 PM EDT Narrative Resulting Agency Comment Spec In Lab Rosa Hugo MD HEMATOLOGY ORDERAB LES [facility] [place] [address] * POCT Glucose (11/01/2023 5:59 PM EDT) Glucose, POC 104 65 - 199 mg/dL [facility] Comment: Supplemental ranges: <140 mg/dL before meals <180 mg/dL all other times of the day Blood 11/01/2023 5:59 PM EDT 11/01/2023 5:59 PM EDT Rosa Hugo MD POINT OF CARE TEST ORDERABLES [facility] [place] [address] * POCT Glucose (11/01/2023 5:35 PM EDT) Glucose, POC 85 65 - 199 mg/dL [facility] Comment: Supplemental ranges: <140 mg/dL before meals <180 mg/dL all other times of the day Blood 11/01/2023 5:35 PM EDT 11/01/2023 5:35 PM EDT Rosa Hugo MD POINT OF CARE TEST ORDERABLES Performing Organization Address City/[facility] Co de Phone Number [facility] [place] [address] * EKG 12 Lead (11/01/2023 3:22 PM EDT) Ventricular rate 59 BPM MUSE SYSTEM Atrial Rate 59 BPM MUSE SYSTEM P-R Interval 220 ms MUSE SYSTEM QRS Duration 94 ms MUSE SYSTEM Q-T Interval 428 ms MUSE SYSTEM QTC Calculated (Bezet) 423 ms MUSE SYSTEM Calculated P [place] 76 degrees MUSE SYSTEM Calculated R [place] -50 degrees MUSE SYSTEM Calculated T [place] -59 degrees MUSE SYSTEM INTERPRETATION Sinus bradycardia [...] Modality Other Narrative 11/02/2023 4:57 PM EDT ?[facility] ? Cardiac Catheterization/Intervention Report ? Patient Name: Joleen, Adin Catherine. ? Procedure Date: 11/01/2023 ? A #: [id number] ? Primary Physician: Rosa Dewey I ? Case #: [id number] ? File Name: [id number] ? Catheterization Order Number: [id number] ? [facility] ? Final Report [place], [place] ? Patient Name: ? Adin Townsendjosue ?ID#: ?[id number] ? : ?1940 ? Procedure Date: ? [...] procedure was Urgent. The indication for ?the medical laboratory technicians visit is ACS greater than 24 hrs. [...] ??A premounted ? 3.50 x 15 mm [place] (RADHA) was deployed with a maximum ? [...] ? A premounted 3.50 x 15 mm [place] (RADHA) was deployed ? with a maximum [...] dose administered prior to arrival in the medical laboratory technicians. ?Recommended anti-platelet/anti-thrombotic regimen: ?Continue aspirin 81 mg [...] Note Otto, Rosa I, MD - 12/12/2023 [facility] Cardiac Catheterization/Intervention Report Patient Name: Adin Santos Procedure Date: 11/01/2023 A #: [id number] Primary Physician: Rosa Dewey I Case #: [id number] File Name: [id number] Catheterization Order Number: [id number] [facility] FinalReport [place], [place] Patient Name: Adin Santos ID#:[id number] :1940 Procedure Date: November 01, 2023 Case [...] diagnostic procedure was Urgent. The indicationfor the medical laboratory technicians visit is ACS greater than 24 hrs. [...] 14 atmospheres. Apremounted 3.50 x 15 mm [place] (RADHA) was deployed with amaximum inflation pressure [...] The lesion was predilated with a 3.00mm [id number] MM balloon with a maximum inflation pressure of 14atmospheres. A premounted 3.50 x 15 mm [place] (RADHA) wasdeployed with a maximum inflation pressure [...] dose administered prior to arrival in the medical laboratory technicians. Recommended anti-platelet/anti-thrombotic regimen: Continue aspirin 81 mg [...] * POCT Glucose (11/01/2023 7:06 AM EDT) [facility] Glucose, POC 93 65 - 199 mg/dL [facility] Comment: Supplemental ranges: <140 mg/dL before meals <180 mg/dL all other times of the day Blood 11/01/2023 7:06 AM EDT 11/01/2023 7:06 AM EDT Jean Laboy MD POINT OF CARE TEST O RDERABLES [facility] [place] [address] * (ABNORMAL) Differential, Automated (11/01/2023 3:09 AM EDT) [facility] Neutrophil % 63.9 % [facility] Neutrophil Absolute 5.54 1.70 - 6.10 x10(3)/mc L [facility] Lymph % 20.0 % [facility] Lymphocytes Abs 1.7 0.9 - 3.2 x10(3)/mc L [facility] Monocyte % 11.9 % [facility] Monocyte Abs 1.0(H) 0.3 - 0.9 x10(3)/mc L [facility] Eos % 3.2 % [facility] Eosinophils Abs 0.3 0.0 - 0.4 x10(3)/mc L [facility] Basophil % 0.5 % [facility] [...] MD HEMATOLOGY ORDERABLE S Performing Organization Address City/State/[facility] Co de Phone Number [facility] [place] [address] * (ABNORMAL) Hemogram (11/01/2023 3:09 AM EDT) [...] [facility] NRBC% auto 0.0 % [facility] NRBC Absolute 0.000 0.000 - 0.000 x10(3)/mc L [facility] Blood 11/01/2023 3:09 AM EDT 11/01/2023 3:29 AM EDT Narrative Resulting Agency Comment Spec In Lab Qamar Gallardo MD HEMATOLOGY ORDERABLE S Performing Organization Address City/[facility]/ZIP Co de Phone Number [facility] [place] [address] * Phosphorus (11/01/2023 3:09 AM EDT) Phosphorus 2.5 2.5 - 4.5 mg/dL [facility] Blood 11/01/2023 3:09 AM EDT 11/01/2023 3:29 AM EDT Narrative Resulting Agency Comment Spec In Lab Rosa Cornejo MD CHEMISTRY ORDERABLE S Performing Organization Address City/[facility]/ZIP Co de Phone Number [facility] [place] [address] * Magnesium (11/01/2023 3:09 AM EDT) Magnesium 0.82 0.69 - 1.07 mmol/L [facility] Blood 11/01/2023 3:09 AM EDT 11/01/2023 3:29 AM EDT Narrative Resulting Agency Comment Spec In Lab Rosa Cornejo MD CHEMISTRY ORDERABLE S Performing Organization Address City/[facility]/ZIP Co de Phone Number [facility] [place] [address] * (ABNORMAL) Basic Metabolic Panel (non-fasting) (11/01/2023 [...] ORDERABLE S [facility] [place] [address] * (ABNORMAL) Troponin (10/31/2023 2:46 PM EDT) [...] troponin value can be found in the [facility] Test Catalog Troponin - [facility] Test Catalog Reference: Fourth [place] Definition of Myocardial Infarction. Journal of the [employer] [place] [employer] 2018;72:0024-3077 Blood 10/31/2023 2:46 PM EDT 10/31/2023 2:55 PM EDT Narrative Resulting Agency Comment Spec In Lab Jean Laboy MD CHEMISTRY ORDERABLES [facility] [place] [address] * EKG 12 Lead (10/31/2023 1:07 PM EDT) Ventricular rate 54 BPM MUSE SYSTEM Atrial Rate 54 BPM MUSE SYSTEM P-R Interval 218 ms MUSE SYSTEM QRS Duration 92 ms MUSE SYSTEM Q-T Interval 540 ms MUSE SYSTEM QTC Calculated (Bezet) 512 ms MUSE SYSTEM Calculated P [place] 85 degrees MUSE SYSTEM Calculated R [place] -44 degrees MUSE SYSTEM Calculated T [place] -69 degrees MUSE SYSTEM INTERPRETATION Sinus bradycardia [...] troponin value can be found in the [facility] Test Catalog Troponin - [facility] Test Catalog Reference: Fourth [place] Definition of Myocardial Infarction. Journal of the [employer] [place] [employer] 2018;72:8429-8496 Blood 10/31/2023 11:3 7 AM EDT 10/31/2023 11:50 AM EDT Narrative Resulting Agency Comment Spec In Lab Rosa Cornejo MD CHEMISTRY ORDERABLE S Performing Organization Address [facility]/State/ZIP Co de Phone Number [facility] [place] [address] * ECHO COMPLETE (10/31/2023 8:52 AM EDT) Anatomical Region Laterality Modality Cardiac Other 10/31/2023 7:57 AM EDT Narrative 10/31/2023 9:45 AM EDT [address] [place] [address] ? Echocardiogram Report Name: ADIN SANTOS ? Study Date: 10/31/2023 07:57 AMBP: 106/76 mmHg ? Patient Location: [id number] A : 1940 ? Height: 163 cm ? Account: [id number] Age: 83 yrs ? Weight: 76 kg [...] is no prior echocardiogram for comparison. Procedure Complete-32294. Satisfactory quality. There is sinus bradycardia. Left [...] Note Edgard Wang MD - 10/31/2023 [address] [place] [address] Echocardiogram Report Name: ADIN SANTOS Study Date: 407:57 AMBP: 106/76 mmHg Patient Location: [id number] A : 1940 Height: 163 cm Account: [id number] Age: 83 yrs Weight: 76 kg Gender: [...] is no prior echocardiogram for comparison. Procedure Complete-08032. Satisfactory quality. There is sinus bradycardia. Left [...] troponin value can be found in the [facility] Test Catalog Troponin - [facility] Test Catalog Reference: Fourth [place] Definition of Myocardial Infarction. Journal of the [employer] [place] [employer] 2018;72:1322-2605 Blood 10/31/2023 8:51 AM EDT 10/31/2023 9:12 AM EDT Narrative Resulting Agency Comment Spec In Lab Rosa Cornejo MD CHEMISTRY ORDERABLE S [facility] [place] [address] * CARDIAC CATHETERIZATION (10/31/2023 8:10 AM EDT) Anatomical Region Laterality Modality Other Narrative 11/07/2023 9:42 AM EDT ?[facility] ? Cardiac Catheterization/Intervention Report ? Patient Name: Adin Santos. ? Procedure Date: 10/30/2023 ? A #: [id number] ? Primary Physician: Rosa Dewey I ? Case #: [id number] ? File Name: [id number] ? Catheterization Order Number: [id number] ? [facility] ?[facility] ? Final Report [place], [place] ? Patient Name: ? Adin M. Goguen ?ID#: ?[id number] ? : ?1940 ? Procedure Date: ? [...] procedure was Emergent. The indication for ?the medical laboratory technicians visit is ACS less than or equal [...] ? A premounted 4.00 x 38 mm [place] (RADHA) was deployed ? with a maximum [...] dose administered prior to arrival in the medical laboratory technicians. ?Recommended anti-platelet/anti-thrombotic regimen: ?Continue aspirin 81 mg [...] Procedure Note Rosa Dewey MD - 12/05/2023 [facility] Cardiac Catheterization/Intervention Report Patient Name: Adin Santos Procedure Date: 10/30/2023 A #: [id number] Primary Physician: Rosa Dewey I Case #: [id number] File Name: [id number] Catheterization Order Number: [id number] [facility] FinalReport [place], [place] Patient Name: Adin CatherineYasir Edvinree ID#:[id number] :1940 Procedure Date: October 30, 2023 Case #: [id number] Room: 5 Case Physician: Rosa Dewey M.D. [...] was designated as ASA Class III. The [facility] clinical frailtyscale is 5: Mildly Frail. Diagnostic Tests: Electrocardiography: EKG was assessed by ECG. EKG was Abnormal. EKG showed STDeviation >= 0.5 mm, other abnormality and dynamic EKG changes. Medications Prior to Procedure: Aspirin, Angiotensin II Receptor Kristy, Beta Kristy andStatin. Indications for Diagnostic Cath: The priority of the diagnostic procedure was Emergent. Theindication for the medical laboratory technicians visit is ACS less than or equal [...] The priority for the procedure was Emergent.The [facility] indication for the procedure was [...] 16atmospheres. A premounted 4.00 x 38 mm [place] (RADHA) wasdeployed with a maximum inflation pressure [...] dose administered prior to arrival in the medical laboratory technicians. Recommended anti-platelet/anti-thrombotic regimen: Continue aspirin 81 mg [...] * (ABNORMAL) Troponin (10/31/2023 4:21 AM EDT) [facility] Troponin-T, High Sensitivity 457(H) <=14 ng/L [facility] [...] troponin value can be found in the [facility] Test Catalog Troponin - [facility] Test Catalog Reference: Fourth [place] Definition of Myocardial Infarction. Journal of the [place] [employer] 2018;72:9544-3666 Blood 10/31/2023 4:21 AM EDT 10/31/2023 4:30 AM EDT Narrative Resulting Agency Comment Spec In Lab Rosa Cornejo MD CHEMISTRY ORDERABLE S [facility] [place] [address] * (ABNORMAL) Differential, Automated (10/31/2023 3:05 AM EDT) Neutrophil % 71.7 % [facility] Neutrophil Absolute 8.21(H) 1.70 - 6.10 x10(3)/mc L [facility] Lymph % 16.9 % [facility] Lymphocytes Abs 1.9 0.9 - 3.2 x10(3)/mc L [facility] Monocyte % 9.4 % [facility] Monocyte Abs 1.1(H) 0.3 - 0.9 x10(3)/mc L [facility] Eos % 1.3 % [facility] Eosinophils Abs 0.2 0.0 - 0.4 x10(3)/mc L [facility] Basophil % 0.4 % [facility] [...] ORDERABLE S [facility] [place] [address] * (ABNORMAL) Hemogram (10/31/2023 3:05 AM EDT) White Blood Cell 11.5(H) 4.0 - 9.5 x10(3)/ L [facility] Red Blood Cell 3.75(L) 4.00 - 5.21 x10(6)/[facility] LABORATORY Hemoglobin 12.6 11.7 - 15.5 [...] [facility] NRBC% auto 0.0 % [facility] NRBC Absolute 0.000 0.000 - 0.000 x10(3)/ L [facility] Blood 10/31/2023 3:05 AM EDT 10/31/2023 3:13 AM EDT Narrative Resulting Agency Comment Spec In Lab Qamar Gallardo MD HEMATOLOGY ORDERABLE S Performing Organization Address [facility] Co de Phone Number [facility] [place] [address] * (ABNORMAL) APTT (10/31/2023 3:05 AM EDT) [...] ORDERABL ES Performing Organization Address [facility] de Phone Number [facility] [place] [address] * (ABNORMAL) Prothrombin Time (10/31/2023 3:05 AM [...] MD HEMATOLOGY ORDERABL ES Performing Organization Address [facility] Co de Phone Number [place] [address] * (ABNORMAL) Differential, Automated (10/31/2023 1:37 AM EDT) Pathologist [facility] Neutrophil % 71.1 % [facility] Neutrophil Absolute 7.53(H) 1.70 - 6.10 x10(3)/ L [facility] Lymph % 18.0 % [facility] Lymphocytes Abs 1.9 0.9 - 3.2 x10(3)/ L [facility] Monocyte % 8.7 % [facility] Monocyte Abs 0.9 0.3 - 0.9 x10(3)/[facility] LABORATORY Eos % 1.6 % [facility] Eosinophils Abs 0.2 0.0 - 0.4 x10(3)/[facility] LABORATORY Basophil % 0.4 % [facility] Baso Absolute 0.0 0.0 - 0.1 x10(3)/[facility] LABORATORY Immature Gran % 0.20 % [facility] [...] ORDERABLE S [facility] [place] [address] * (ABNORMAL) Hemogram (10/31/2023 1:37 AM EDT) [...] [facility] NRBC% auto 0.0 % [facility] NRBC Absolute 0.000 0.000 - 0.000 x10(3)/ L [facility] Blood 10/31/2023 1:37 AM EDT 10/31/2023 1:46 AM EDT Narrative Resulting Agency Comment Spec In Lab Qamar Gallardo MD HEMATOLOGY ORDERABLE S [facility] [place] [address] * Phosphorus (10/31/2023 1:37 AM EDT) Phosphorus 3.2 2.5 - 4.5 mg/dL [facility] Blood 10/31/2023 1:37 AM EDT 10/31/2023 1:46 AM EDT Narrative Resulting Agency Comment Spec In Lab Rosa Cornejo MD CHEMISTRY ORDERABLE S [facility] [place] [address] * Magnesium (10/31/2023 1:37 AM EDT) Pathologist [facility] Magnesium 0.83 0.69 - 1.07 mmol/L [facility] Blood 10/31/2023 1:37 AM EDT 10/31/2023 1:46 AM EDT Narrative Resulting Agency Comment Spec In Lab Rosa Cornejo MD CHEMISTRY ORDERABLE S Performing Organization Address [facility] Co de Phone Number [facility] [place] [address] * Basic Metabolic Panel (non-fasting) (10/31/2023 1:37 AM EDT) Pathologist [facility] Glucose 114 65 - 199 mg/dL [facility] [...] ORDERABLE S [facility] [place] [address] * (ABNORMAL) Troponin (10/31/2023 1:37 AM EDT) [...] troponin value can be found in the [facility] Test Catalog Troponin - [facility] Test Catalog Reference: Fourth [place] Definition of Myocardial Infarction. Journal of the [place] [employer] 2018;72:5527-0987 Blood 10/31/2023 1:37 AM EDT 10/31/2023 1:46 AM EDT Narrative Resulting Agency Comment Spec In Lab Rosa Cornejo MD CHEMISTRY ORDERABLE S Performing Organization Address [facility]/ZIP Co de Phone Number [facility] [place] [address] * EKG 12 Lead (10/31/2023 1:20 AM EDT) Ventricular rate 52 BPM MUSE SYSTEM Atrial Rate 52 BPM MUSE SYSTEM P-R Interval 224 ms MUSE SYSTEM QRS Duration 108 ms MUSE SYSTEM Q-T Interval 544 ms MUSE SYSTEM QTC Calculated (Bezet) 505 ms MUSE SYSTEM Calculated P [place] 90 degrees MUSE SYSTEM Calculated R [place] -57 degrees MUSE SYSTEM Calculated T [place] -63 degrees MUSE SYSTEM INTERPRETATION Sinus bradycardia [...] Cornejo MD ECG ORDERABLES Performing Organization Address City/[facility]/ZIP Co de Phone Number MUSE SYSTEM * EKG 12 Lead (10/30/2023 10:40 PM EDT) Ventricular rate 55 BPM MUSE SYSTEM Atrial Rate 55 BPM MUSE SYSTEM P-R Interval 232 ms MUSE SYSTEM QRS Duration 102 ms MUSE SYSTEM Q-T Interval 520 ms MUSE SYSTEM QTC Calculated (Bezet) 497 ms MUSE SYSTEM Calculated P [place] 75 degrees MUSE SYSTEM Calculated R [place] -53 degrees MUSE SYSTEM Calculated T [place] -57 degrees MUSE SYSTEM INTERPRETATION Sinus bradycardia with 1st degree A-V block Left anterior fascicular block Moderate voltage criteria for LVH, may be normal variant ( R in aVL , [place] product ) T wave abnormality, consider inferior [...] Chest One View (10/30/2023 10:10 PM EDT) [employer] WORKSTATION ID [id number] DH RAD Anatomical Region Laterality Modality Chest [...] and low lung volumes. Findings similar to assistant women's tennis coach radiograph from CT 10/30/2023. Thank you for letting us participate in the care of this patient. ??If you are a health care provider and have any questions regarding this report, please contact the number below. ??For patients who have questions please contact the health hearing care practitioner that requested your imaging first. ? Narrative [...] and low lung volumes. Findings similar to assistant women's tennis coach radiograph from CT 10/30/2023. Thank you for letting us participate in the care of this patient. If youare a health care provider and have any questions regarding this report,please contact the number below. For patients who have questions please contactthe health hearing care practitioner that requested your imaging first. Rosa Cornejo MD IMG DX ORDERABLES * Green Tube HOLD (10/30/2023 10:05 PM EDT) Pathologist [facility] Green Hold Sample in lab. [facility] Blood Venous Draw / Unknown 10/30/2023 10:05 PM EDT 10/30/2023 10:13 PM EDT Qamar Gallardo MD CHEMISTRY ORDERABLES [facility] [place] [address] * (ABNORMAL) Differential, Automated (10/30/2023 10:05 PM EDT) Pathologist [facility] Neutrophil % 76.6 % [facility] Neutrophil Absolute 6.94(H) 1.70 - 6.10 x10(3)/mc L [facility] Lymph % 15.4 % [facility] Lymphocytes Abs 1.4 0.9 - 3.2 x10(3)/mc L [facility] Monocyte % 6.1 % [facility] Monocyte Abs 0.6 0.3 - 0.9 x10(3)/mc L [facility] Eos % 1.1 % [facility] Eosinophils Abs 0.1 0.0 - 0.4 x10(3)/mc L [facility] Basophil % 0.6 % [facility] [...] ORDERABLE S [facility] [place] [address] * (ABNORMAL) Hemogram (10/30/2023 10:05 PM EDT) [...] [facility] NRBC% auto 0.0 % [facility] NRBC Absolute 0.000 0.000 - 0.000 x10(3)/mc L [facility] Blood 10/30/2023 10:0 5 PM EDT 10/30/2023 10:12 PM EDT Narrative Resulting Agency Comment Spec In Lab Qamar Gallardo MD HEMATOLOGY ORDERABLE S Performing Organization Address [facility] Co de Phone Number [facility] [place] [address] * Hemoglobin A1c (10/30/2023 10:05 PM EDT) [...] Mellitus, Diabetes Care 2013; 36: Suppl. 1, S67-02 Estimated Average Glucose See note mg/dL [facility] Comment: Estimated Average Glucose not appropriate for patients over 70 years of age. Blood 10/30/2023 10:0 5 PM EDT 10/30/2023 10:12 PM EDT Narrative Resulting Agency Comment Spec In Lab Rosa Cornejo MD CHEMISTRY ORDERABLE S Performing Organization Address [facility] Co de Phone Number [facility] [place] [address] * Lipid Panel (Reflex Direct LDL) (10/30/2023 10:05 PM EDT) Cholesterol, Total 218 mg/dL [facility] Comment: Desirable: ? <200 mg/dL Borderline High: 200-239 mg/dL Higher: ?>lg=041 mg/dL Triglyceride 46 mg/dL [facility] Comment: Normal: ?<150 mg/dL Borderline High: 150-199 mg/dL High: ?200-499 mg/dL Very High: ? >au=904 mg/dL HDL Cholesterol 64 mg/dL [facility] LABORATORY Comment: Females: High Risk: <50 mg/dL Males: High Risk: <40 mg/dL LDL Cholesterol 145 mg/dL [facility] Comment: Desirable: ? <100 mg/dL Above Desirable: 100-129 mg/dL Borderline High: 130-159 mg/dL High: ?160-189 mg/dL Very High: ? >na=626 mg/dL Lipid Interpretation See Note [facility] [...] individuals with atherosclerotic cardiovascular disease (ASCVD)or LDL >wp=361 mg/dL, use a high-intensity statin (40-80 mg [...] MD CHEMISTRY ORDERABLE S Performing Organization Address [facility] Co de Phone Number [facility] [place] [address] * TSH [place] (10/30/2023 10:05 PM EDT) Thyroid Stimulating Hormone 3.35 0.27 - 4.20 mcIU/mL [facility] Comment: Reference Interval (mcIU/mL): Females: ??First Trimester: 0.23-3.88 ??Second Trimester: 0.22-3.90 ??Third Trimester: 0.44-4.66 Blood 10/30/2023 10:0 5 PM EDT 10/30/2023 10:12 PM EDT Narrative Resulting Agency Comment Spec In Lab Rosa Cornejo MD CHEMISTRY ORDERABLE S Performing Organization Address [facility] Co de Phone Number [facility] [place] [address] * pro-Brain Natriuretic Peptide (10/30/2023 10:05 PM EDT) NT-proBNP 375 <=449 pg/mL [facility] Blood 10/30/2023 10:0 5 PM EDT 10/30/2023 10:12 PM EDT Narrative Resulting Agency Comment Spec In Lab Rosa Cornejo MD CHEMISTRY ORDERABLE S [facility] [place] [address] * (ABNORMAL) Comprehensive metabolic panel (non-fasting) (10/30/2023 [...] MD CHEMISTRY ORDERABLE S Performing Organization Address City/[facility]/ZIP Co de Phone Number [facility] [place] [address] * Phosphorus (10/30/2023 10:05 PM EDT) Phosphorus 3.3 2.5 - 4.5 mg/dL [facility] Blood 10/30/2023 10:0 5 PM EDT 10/30/2023 10:12 PM EDT Narrative Resulting Agency Comment Spec In Lab Rosa Cornejo MD CHEMISTRY ORDERABLE S Performing Organization Address City/[facility]/ZIP Co de Phone Number [facility] [place] [address] * Magnesium (10/30/2023 10:05 PM EDT) Magnesium 0.86 0.69 - 1.07 mmol/L [facility] Blood 10/30/2023 10:0 5 PM EDT 10/30/2023 10:12 PM EDT Narrative Resulting Agency Comment Spec In Lab Rosa Cornejo MD CHEMISTRY ORDERABLE S Performing Organization Address City/[facility]/ZIP Co de Phone Number [facility] [place] [address] * (ABNORMAL) Troponin (10/30/2023 10:05 PM EDT) [facility] Troponin-T, High Sensitivity 214(H) <=14 ng/L [facility] [...] troponin value can be found in the [facility] Test Catalog Troponin - [facility] Test Catalog Reference: Fourth [place] Definition of Myocardial Infarction. Journal of the [place] College of Cardiology 2018;72:8967-1698 Blood 10/30/2023 10:0 5 PM EDT 10/30/2023 10:12 PM EDT Narrative Resulting Agency Comment Spec In Lab Rosa Cornejo MD CHEMISTRY ORDERABLE S [facility] [place] [address] * EKG 12 Lead (10/30/2023 8:21 PM EDT) [facility] Ventricular rate 49 BPM MUSE SYSTEM Atrial Rate 49 BPM MUSE SYSTEM P-R Interval 230 ms MUSE SYSTEM QRS Duration 96 ms MUSE SYSTEM Q-T Interval 526 ms MUSE SYSTEM QTC Calculated (Bezet) 475 ms MUSE SYSTEM Calculated P [place] 98 degrees MUSE SYSTEM Calculated R [place] -48 degrees MUSE SYSTEM Calculated T [place] -51 degrees MUSE SYSTEM INTERPRETATION Sinus bradycardia with 1st degree A-V block Incomplete right bundle branch block Left anterior fascicular block Moderate voltage criteria for LVH, may be normal variant ( R in aVL , [place] product ) T wave abnormality, consider inferior [...] last 24 to 72 hours., Routine 1333 ([facility] Hold - Provider: Admin Adt - Reason: Transfer to a Procedural area)1548 ([facility] Unhold - Provider: Admin Adt) sodium chloride 0.9 % (flush) (BD PosiFlush Normal Saline 0.9) flush 5-20 mL 5-20 mL, Intravenous, EVERY 1 MIN PRN, Starting on 10/30/23 at 2208, Until Amna 11/03/23 at 1913, flush, Flush pertains to all indwelling lines. Flush per protocol found in the job aid using the link provided on this medication record., Routine 1333 ([facility] Hold - Provider: Admin Adt - Reason: Transfer to a Procedural area)1548 ([facility] Unhold - Provider: Admin Adt) documented in this encounter Additional Health Concerns Infection Onset Date Last Indicated Resolved Time Rule Out Respiratory 11/02/2023 11/02/2023 024 12:22 PM EDT Rule Out COVID-19 11/02/2023 11/02/2023 11/02/2023 12:22 PM EDT documented as of this encounter Care Teams Deck Lid Fitter Relationship Specialty Start Date End Date Rosie Mathews MD [address] [place] [address] PCP - General Family Medicine 11/25/17 11/23/23 documented as of this encounter
--- OUTSIDE RECORDS SUMMARY | 2024-02-29 10:15 | XMS_ITS | Encounter Summary ---
Author Organization [facility] Address [facility] [place] [address] Care Team Providers Care Advertising Traffic Manager Name Role Phone Masood Pierson MD Primary Care Provider [phone] Encounter Details Date Type Department Care Team (Latest Contact Info) Description 11/24/2023 Travel Social History Tobacco Use Types Packs/Day Years Used Date Smoking Tobacco: Former Smokeless Tobacco: Never Alcohol Use Standard Drinks/Week Comments Not Currently 0 (1 standard drink = 0.6 oz pur e alcohol) [facility] Utilities Answer Date Recorded In [...] 11:20 AM EDT Office Visit Cardiology at [address] [address] Izaiah Meyer MD [facility] [place] [address] documented as of this encounter Visit Diagnoses Not on filedocumented in this encounter Care Teams Advertising Traffic Manager Relationship Specialty Start Date End Date Masood Pierson MD [address] [place] [address] PCP - General Family Medicine 11/24/23 documented as of this encounter
--- OUTSIDE RECORDS SUMMARY | 2024-02-29 10:15 | XMS_ITS | Encounter Summary ---
Author Organization [facility] Address [facility] [place] [address] Care Team Providers Care Electronics Assembler And Tester Name Role Phone Masood Pierson MD Primary Care Provider [phone] Encounter Details Date Type Department Care Team (Late st Contact Info) Description 12/16/2023 Telephone Cardiology at [address] [place] [address] Izaiah Meyer MD [facility] [place] [address] Social History Tobacco Use Types Packs/Day Years Used Date Smoking Tobacco: Former Smokeless Tobacco: Never Alcohol Use Standard Drinks/Week Comments Not Currently 0 (1 standard drink = 0.6 oz pur e alcohol) [facility] Utilities Answer Date Recorded In the past 12 months has [employer] electric, gas, oil, or water [employer] threatened to shut off services in your [...] RN - 12/16/2023 11:25 AM EDT Denise, [facility] Cardiac instructional technology instructor, called to report that at today's session [...] AM EDT Office Visit Cardiology at [address] [place] [address] Izaiah Meyer MD [facility] [place] [address] documented as of this encounter Visit Diagnoses Not on filedocumented in this encounter Care Teams Electronics Assembler And Tester Relationship Specialty Start Date End Date Masood Pierson MD [address] [place] [address] PCP - General Family Medicine 11/24/23 documented as of this encounter
--- OUTSIDE RECORDS SUMMARY | 2024-02-29 10:15 | XMS_ITS | Encounter Summary ---
Author Organization [facility] Address [facility] [place] [address] Care Team Providers Care Eyelet Row Marker Name Role Phone Rosie Mathews MD Primary Care Provider [phone] Encounter Details Date Type Department Care Team (Late st Contact Info) Description 11/18/2023 Telephone Cardiology at [address] [address] Cheryl Guzman MD [facility] [place] [address] Social History Tobacco Use Types Packs/Day Years Used Date Smoking Tobacco: Former Smokeless Tobacco: Never Alcohol Use Standard Drinks/Week Comments Not Currently 0 (1 standard drink = 0.6 oz pur e alcohol) [facility] Utilities Answer Date Recorded In the past 12 months has e electric, gas, oil, or water [employer] threatened to shut off services in your [...] Provider: Radu Giron MD Patient Location: ED, [facility] Past Medical History: HTN HLD NSTEMI ([facility] 11/02, status-post revasc) Presenting Symptoms per OSH: Lyla Goodrich is a 83 y.o. woman who presents to [facility] with an episode of chest pain. Recent admission to [facility] with NSTEMI status-post PCI to the prox-RCA [...] today's values. 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 Recommend admission for observation to assess for [...] AM EDT Office Visit Cardiology at [address] [phone] Izaiah Meyer MD [facility] [place] [address] documented as of this encounter Visit Diagnoses Not on filedocumented in this encounter Care Teams Eyelet Row Marker Relationship Specialty Start Date End Date Rosie Mathews MD [address] [place] [address] PCP - General Family Medicine 11/25/17 11/23/23 documented as of this encounter
--- OUTSIDE RECORDS SUMMARY | 2024-02-29 10:15 | XMS_ITS | Encounter Summary ---
Author Organization [facility] Address [facility] [place] [address] Care Team Providers Care Store Shopper Name Role Phone Masood Pierson MD Primary Care Provider [phone] Reason for Visit * Reason Comments Establish Care Coronary Artery Disease Encounter Details Date Type Department Care Team (Latest Contact Info) Description 11/24/2023 10:40 AM EDT Office Visit Cardiology at [address] [place] [address] Izaiah Meyer MD [facility] [place] [address] ASCVD (arteriosclerotic cardiovascular disease); Cardiomyopathy, ischemic; Ascending aorta dilatation; Hyperpiesia Social History Tobacco Use Types Packs/Day Years Used Date Smoking Tobacco: Former Smokeless Tobacco: Never Alcohol Use Standard Drinks/Week Comments Not Currently 0 (1 standard drink = 0.6 oz pur e alcohol) [facility] Utilities Answer Date Recorded In [...] y.o. female. HPI: 83 f presents to replaced by [facility]. She has a recent history [...] rehab. [facility] SBP very well controlled at [...] 11:20 AM EDT Office Visit Cardiology at [address] [place] [phone] Izaiah Meyer MD [facility] [place] [address] documented as of this encounter Visit Diagnoses Diagnosis ASCVD (arteriosclerotic cardiovascular disease) Unspecified cardiovascular disease Cardiomyopathy, ischemic Other specified forms of chronic ischemic heart disease Ascending aorta dilatation Thoracic aortic ectasia Hyperpiesia Unspecified essential hypertension documented in this encounter Care Teams Store Shopper Relationship Specialty Start Date End Date Masood Pierson MD [address] [place] [address] PCP - General Family Medicine 11/24/23 documented as of this encounter
--- OUTSIDE RECORDS SUMMARY | 2024-02-29 10:15 | XMS_ITS | Encounter Summary ---
Author Organization [facility] Address [facility] [place] [address] Care Team Providers Care Precision Jig Grinder Name Role Phone Masood Pierson MD Primary Care Provider [phone] Encounter Details Date Type Department Care Team (Late st Contact Info) Description 02/24/2024 11:10 PM EDT Ancillary Procedure [place] [phone] Masood Pierson MD [address] [place], [place] [id number] Social History Tobacco Use Types Packs/Day Years Used Date Smoking Tobacco: Former Smokeless Tobacco: Never Alcohol Use Standard Drinks/Week Comments Not Currently 0 (1 standard drink = 0.6 oz pur e alcohol) [facility] Utilities Answer Date Recorded In the past 12 months has [employer] electric, gas, oil, or water company threatened [...] a skilled nursing (including now)? No 11/01/2023 IPV Inpatient Questions [...] 11:20 AM EDT Office Visit Cardiology at [address] [phone] Izaiah Meyer MD [facility] [place] [address] documented as of this encounter Procedures Procedure Name Priority Date/Time Associated Diagnosis Comments FILM LIBRARY STORAGE ONLY CT CHEST Routine 02/24/2024 11:05 PM EDT documented in this encounter Results * Film Library- Storage Only CT Chest (02/24/2024 11:05 PM EDT) Narrative RAD - 02/24/2024 11:05 PM EDT This exam is auto-finalizing. It's purpose is for storage only. Masood Pierson MD [facility] FILM LIBRARY ORD ERABLES [facility] [place], [place] documented in this encounter Visit Diagnoses Not on filedocumented in this encounter Care Teams Precision Jig Grinder Relationship Specialty Start Date End Date Masood Pierson MD [address] [place] [address] PCP - General Family Medicine 11/24/23 documented as of this encounter
--- OUTSIDE RECORDS SUMMARY | 2024-02-29 10:15 | XMS_ITS | Encounter Summary ---
Author Organization [facility] Address [facility] [place] [address] Care Team Providers Care Truck Bench Mechanic Name Role Phone Rosie Mathews MD Primary Care Provider [phone] Reason for Visit * Reason Onset Date Comments Referral 11/03/2023 Coronary Artery Disease 11/03/2023 Encounter Details Date Type Department Care Team (Late st Contact Info) Description 11/03/2023 Telephone Cardiology at [address] [address] Andressa Machado, dry sander; Coronary Artery Disease Social History Tobacco Use Types Packs/Day Years Used Date Smoking Tobacco: Former Smokeless Tobacco: Never Alcohol Use Standard Drinks/Week Comments Not Currently 0 (1 standard drink = 0.6 oz pur e alcohol) [facility] Utilities Answer Date Recorded In the past 12 months has e [employer], gas, oil, or water [employer] threatened to shut off services in your [...] were not included. [facility] [address] [place] [address] Lyla was referred to this Cardiology clinic in [place] for post cardiac cath 10/31 for STEMI follow up as part of her discharge plan from [facility] documented in this encounter Plan of Treatment Upcoming Encounters Date Type Department Care Team (Late st Contact Info) Description 03/29/2024 11:20 AM EDT Office Visit Cardiology at [address] [place] [address] Izaiah Meyer MD [facility] [place] [address] documented as of this encounter Visit Diagnoses Not on filedocumented in this encounter Care Teams Truck Bench Mechanic Relationship Specialty Start Date End Date Rosie Mathews MD [address] [place] [address] PCP - General Family Medicine 11/25/17 11/23/23 documented as of this encounter
--- OUTSIDE RECORDS SUMMARY | 2024-02-29 10:15 | XMS_ITS | Encounter Summary ---
Author Organization [facility] Address [facility] [place] [address] Care Team Providers Care Clerical Specialist Name Role Phone Masood Pierson MD Primary Care Provider [phone] Encounter Details Date Type Department Care Team (Late st Contact Info) Description 02/27/2024 Telephone Cardiology at [address] [place] [address] Izaiah Meyer MD [facility] [place] [address] Social History Tobacco Use Types Packs/Day Years Used Date Smoking Tobacco: Former Smokeless Tobacco: Never Alcohol Use Standard Drinks/Week Comments Not Currently 0 (1 standard drink = 0.6 oz pur e alcohol) [facility] Utilities Answer Date Recorded In the past 12 months has [employer] electric, gas, oil, or water [employer] threatened to shut off services in your [...] encounter Miscellaneous Notes * Telephone Encounter - Joie Guillermo RN - 02/27/2024 3:30 PM EDT Lyla was seen at [facility] this past Tuesday for chest pain and returned to the ED Tuesday for back pain.Per patient both times it was determined she was having no cardiac issues but she was told to let her field assessor know. At present she is not having chest pain but is having continued back pain. She has an appointment with her PCP this Tuesday and a follow up with Dr. Meyer in March 2024. She was told her records would be reviewed and she will be contacted if Dr. Meyer has further instructions or orders. documented in this encounter Plan of Treatment Upcoming Encounters Date Type Department Care Team (Late st Contact Info) Description 03/29/2024 11:20 AM EDT Office Visit Cardiology at [address] [address] Izaiah Meyer MD [facility] [place] [address] documented as of this encounter Visit Diagnoses Not on filedocumented in this encounter Care Teams Clerical Specialist Relationship Specialty Start Date End Date Masood Pierson MD [address] [place] [address] PCP - General Family Medicine 11/24/23 documented as of this encounter
--- OUTSIDE RECORDS SUMMARY | 2024-02-29 10:16 | XMS_ITS | Encounter Summary ---
Author Organization [facility] [place] [address] Care Team Providers Care Hr Clerk Name Role Phone Rosie Mathews MD Primary Care Provider [phone] Reason for Visit * Auth/Cert (Routine) Specialty Diagnoses / Procedures Referred By Contac t Referred To Contact Diagnoses Unstable angina Procedures [place] [employer] [place] [employer] [facility] [facility] Referral ID Status Reason Start Date Expiration Date Visits Re quested Visits Authorized [id number] 1 1 Encounter Details Date Type Department Care Team (Latest Contact Info) Description 10/30/2023 5:00 PM EDT - 10/30/2023 5:10 PM EDT Hospital [place] [phone] Rosa Menjivar MD [facility] [place] [address] Discharge Disposition: Home Social History Tobacco Use [...] AM EDT Office Visit Cardiology at [address] [place] [address] Izaiah Meyer MD [facility] [place] [place] [address] documented as of this encounter Visit Diagnoses Not on filedocumented in this encounter Care Teams Hr Clerk Relationship Specialty Start Date End Date Rosie Mathews MD [address] [place] [address] PCP - General Family Medicine 11/25/17 11/23/23 documented as of this encounter
--- OUTSIDE RECORDS SUMMARY | 2024-02-29 10:16 | XMS_ITS | Encounter Summary ---
Author Organization [facility] [place] [address] Care Team Providers Care Labourers Name Role Phone Rosie Mathews MD Primary Care Provider [phone] Encounter Details Date Type Department Care Team (Late st Contact Info) Description 10/30/2023 5:00 PM EDT Ancillary Procedure [place] [phone] Izaiah Meyer MD [facility] [place] [address] Social History Tobacco Use Types Packs/Day Years Used Date Smoking Tobacco: Former Smokeless Tobacco: Never Alcohol Use Standard Drinks/Week Comments Not Currently 0 (1 standard drink = 0.6 oz pur e alcohol) [facility] Inpatient Questions Answer Date Recorded Does [...] AM EDT Office Visit Cardiology at [address] [place] [address] Izaiah Meyer MD [facility] [place] [address] documented as of this encounter Procedures Procedure Name Priority Date/Time Associated Diagnosis Comments FILM LIBRARY STORAGE ONLY CT CHEST Routine 10/30/2023 4:59 PM EDT documented in this encounter Results * Film Library- Storage Only CT Chest (10/30/2023 4:59 PM EDT) Narrative [facility] 10/30/2023 4:59 PM EDT This exam is auto-finalizing. It's purpose is for storage only. Izaiah Meyer MD IMG FILM LIBRARY ORD ERABLES Performing Organization Address City/State/[facility] Co de Phone Number [place], [place] documented in this encounter Visit Diagnoses Not on filedocumented in this encounter Care Teams Labourers Relationship Specialty Start Date End Date Rosie Mathews MD [address] [place] [address] PCP - General Family Medicine 11/25/17 11/23/23 documented as of this encounter
--- OUTSIDE RECORDS SUMMARY | 2024-02-29 10:16 | XMS_ITS | Encounter Summary ---
Author Organization Formerly [facility] [place] [address] Care Team Providers Care Sleeve Setter Safety Stitch Name Role Phone Rosie Mathews MD Primary Care Provider [phone] Reason for Visit * Auth/Cert (Routine) Specialty Diagnoses / Procedures Referred By Contac t Referred To Contact Diagnoses Unstable angina Chest pain NSTEMI Procedures CARDIAC CATHETERIZATION Rosa Dewey MD [facility] [place] [address] [facility] Referral ID Status Reason Start Date Expiration Date Visits Re quested Visits Authorized [id number] 1 1 Encounter Details Date Type Department Care Team (Late st Contact Info) Description 10/30/2023 4:25 PM EDT - 10/30/2023 5:27 PM EDT Surgery Director [place] [address] Rosa Dewey MD [facility] [address] [place], [place] [id number] CARDIAC CATHETERIZATION Social History Tobacco Use Types Packs/Day Years Used Date Smoking Tobacco: Former Smokeless Tobacco: Never Alcohol Use Standard Drinks/Week Comments Not Currently 0 (1 standard drink = 0.6 oz pur e alcohol) [facility] Inpatient Questions Answer Date Recorded Does Anyone [...] [facility] a transfer from [facility] as a possible STEMI alert with acute onset chest pain. The patient reports that her symptoms initially began on Tuesday when she was walking to [facility] and experienced bilateral arm heaviness [...] on repeat, her JAMIE resolved. Cardiology at [facility] was consulted for transfer; the patient was loaded with aspirin 324 mg and ticagrelor 180 mg, started on a heparin drip, and given nitroglycerin with improvement in chest pain. Upon arrival to [facility], the patient was taken directly to the Director Of Food And Nutrition. Two lesions were discovered: one in the prox RCA (felt to almost be a [employer] MAN but they were able to wire, balloon, [...] dose administered prior to arrival in the catheterization laboratory technician. Recommended anti-platelet/anti-thrombotic regimen: Continue aspirin [...] and low lung volumes. Findings similar to racing secretary radiograph from CT 10/30/2023. Pending Studies and [...] 10:40 AM Izaiah Meyer MD Cardiology at [place] Arrive at: [facility] [address] [phone] Future Orders Complete By Expires Referral to Cardiac Rehab [[id number] Custom] As directed Process Instructions: If no progress note charted, please enter Clinical details in comments. Scheduling Instructions: Questions: My question or request is: STEMI. Cardiac rehab at [facility]. Referral to Home Health [[id number] Custom] As directed Process Instructions: If no progress note charted, please enter Clinical details in comments. Scheduling Instructions: Comments: Please evaluate Adin Santos for admission to Home Health. [address] [place] [address] [place] [phone] (home) Date of : 1940 Inpatient DOCUMENTATION FOR VNA SERVICES (INCLUDING THOSE PATIENTS WITH MEDICARE COVERAGE REQUIRING HOME VNA SERVICES AND/OR HOSPICE SERVICES) PATIENT'S LOCATION: Adin Santos [address] [facility] [id number] (home) Cell: Telephone Information: Frit Mixer's Name: self In discussion with the attending physician, it is certified that this patient is under their care and that they, or a Nurse Practitioner, Clinical Nurse specialist or Physician Investment Consultant who is working directly with them, had [...] health issues HOME HEALTH CARE AGENCY: [facility] [address] [place] [id number] START OF CARE: within 24-48 hours of [...] 185 / [facility] [address] . All A agencies which cover the [...] MD / Dr. Masood Pierson [address] [place] [address] 11/09/23 1:55 PM arrival for 2:10 PM appointment Credit Products Officer: Izaiah Meyer MD [address] [place] [address] , 11/24/2023 10:40 AM Your Inpatient Medical Team at [facility] Name(s) of your inpatient provider(s): Attending physician: Rosa Hugo MD Resident physicians: Emile Robles MD; Elmer Tamez MD If you have non-emergent questions, prior to your follow-up visit call: Tuesday-Tuesday between the hours of 8AM-5PM please call the Cardiology Clinic [phone] to speak with a nurse. All other hours please call the Hospital Cash Analyst [phone] and ask to speak to the mac developer on-call. Your Primary Care Provider Rosie Mathews MD [phone] For questions regarding this document or issues relating to this hospitalization on the Medical Service, please contact your inpatient physician through the [facility] Cash Analyst . Issues afterhours and on weekends will be handled by the Credit Products Officer staff on-call. Associated attestation - Rosa [...] MD / Dr. Masood Pierson [address] [place] [address] 11/09/23 1:55 PM arrival for 2:10 PM appointment Credit Products Officer: Izaiah Meyer MD [address] [place] [address] , 11/24/2023 10:40 AM Your Inpatient Medical Team at [facility] Name(s) of your inpatient provider(s): Attending physician: Rosa Hugo MD Resident physicians: Emile Robles MD; Elmer Tamez MD If you have non-emergent questions, prior to your follow-up visit call: Tuesday-Tuesday between the hours of 8AM-5PM please call the Cardiology Clinic [phone] to speak with a nurse. All other hours please call the Hospital Cash Analyst [phone] and ask to speak to the mac developer on-call. Your Primary Care Provider Rosie Mathews MD [phone] documented in this encounter Medications at Time [...] [facility] a transfer from [facility] as [...] [facility] a transfer from [facility] as [...] Resident on Cardiology Service Cardiology S1 (Pager [phone]) Note written in conjunction with Claudio Perla [facility] Medical Student, MS3 Associated attestation - [...] Nirmala Webb - 11/01/2023 11:25 AM EDT Hose Cementer Encounter Note Patient Name: Adin Santos : [id number] MR#: [id number] Admit Date: 10/30/2023 5:11 PM Hospital Day 2 days Narrative: Self initiated visit to patient for Spiritual support in a regular unit rounds. Assessment: Patient is in the bathroom at the time of this visit. Not a good time for Cutter Down visit. Intervention and Outcome: An attempted visit [...] [facility] a transfer from [facility] as [...] and low lung volumes. Findings similar to racing secretary radiograph from CT 10/30/2023. Scheduled Medications: [MAR [...] [facility] a transfer from [facility] as [...] Resident on Cardiology Service Cardiology S1 (Pager [phone]) Note written in conjunction with Claudio Perla [facility] Medical Student, MS3 Associated attestation - [...] [facility] a transfer from [facility] as a possible STEMI alert with acute onset chest pain. Active Problems: Active Hospital Problems Diagnosis Unstable angina Resolved Hospital Problems No resolved problems to display. 24 hr events: - Cath'd yesterday with lesion in the proximal RCA (initially thought it was ART[employer] MAN but they were ableto wire, balloon and [...] and low lung volumes. Findings similar to racing secretary radiograph from CT 10/30/2023. TTE (10/30): Interpretation [...] [facility] as a transfer from [facility] as [...] Resident on Cardiology Service Cardiology S1 (Pager [phone]) Note written in conjunction with Claudio Perla [facility] Medical Student, MS3 Associated attestation - [...] PCP: Rosie Mathews MD PCP phone number: [phone] Date of Admission: 10/30/2023 ( Hospital Day 0 days ) Attending:Rosa Cornejo MD ID: Adin Santos is a 83 y.o. female PMH significant for hypertension and hyperlipidemia who presented to [facility] as a transfer from [facility] as a possible STEMI alert with acute onset chest pain. The patient reports that her symptoms initially began on Tuesday when she was walking to [facility] and experienced bilateral arm heaviness [...] on repeat, her JAMIE resolved. Cardiology at [facility] was consulted for transfer; the patient was loaded with aspirin 324 mg and ticagrelor 180 mg, started on a heparin drip, and given nitroglycerin with improvement in chest pain. Upon arrival to [facility], the patient was taken directly to the Director Of Food And Nutrition. 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 Findings similar to racing secretary radiograph from CT 10/30/2023. Assessment & Plan: Adin Santos is a 83 y.o. female PMH significant for hypertension and hyperlipidemia who presented to [facility] as a transfer from [facility] as [...] with HTN HLD transferred with chest from [facility]. BP 217/68, HR 71 EKG [...] information for follow-up Home Health [facility], [place] [address] TANESHA BOYCE confirmed with Brittany CARVAJAL that [...] in the room. Electrolytes replaced, see MAR. microbiology lab manager sites remained C/D/I with baseline ecchymosis unchanged. Pt complained of back pain, lidocaine patch given. Right IV infiltrated during infusion, patient is marked with sharpie, IV removed. See flowsheet for I+O's and safety rounding. Patient is able to make needs known and call capps within reach. PLAN MOVING FORWARD: Monitor Tele, control BP, monitor catheterization laboratory technician sites, D/C Planning INDIVIDUALIZED FALL [...] in an outpatient cardiac rehabilitation program at [facility] was discussed. Patient agrees to [...] and above on RA. PT went to catheterization laboratory technician today. Left fem site oozed [...] MOVING FORWARD: Monitor Tele, control BP, monitor catheterization laboratory technician sites, D/C Planning INDIVIDUALIZED FALL [...] Admitted From: Transfer from another hospital Location: [facility] Reason for Hospitalization: chest pain [...] receiving care in [place] must abide by [place] law. The hierarchy [...] (i) The agent with financial power of traffic law attorney or a conservator appointed in [...] has the electric, gas, oil, or water Hookit threatened to shut off services in your [...] toilet seat Home Address confirmed as: [address] [facility] [address] Social & Family Supports: All names listed below confirmed with patient as current and correct Extended Emergency Contact Information Primary Emergency Contact: Iris Downing Address: [address], [place] [id number] [place] [address] Mobile Relation: Child Secondary Emergency Contact: Karen More Address: [address] [facility] Mobile Relation: Child Current Care Provided by: self Provides Primary Care For: no one Caregiver if needed: child(emmanuel), adult Quality of Family relationships: involved, supportive Community Resources being provided currently: other (see comments) (receives [facility] services at home (1xweekly)) Behavioral Health [...] Insurance: N/A Prescription Coverage: Yes Preferred Pharmacy: [facility] [place], [place] - [address] [place] [address] [place] [id number] Mayer Status: Patient is a : No Primary Care Provider listed: Masood Pierson MD [phone] Patient/Caregiver Goals of Treatment: home when MR Potential Needs for Transition of Care: home health care Agency Referrals: Not Applicable I have met with the patient to: discuss discharge planning needs. provide the [facility], Office of Care Management letter from the Sweatband Shaper pertaining to rehab referrals. provide a letter describing our affiliations within the [facility] and educate about their right to choose where referrals are sent. provide a list of Home Health Agencies / Durable Medical Equipment vendors which serve their preferred geographic area. provided patient with CMS Star Quality Rating handout. They have requested referrals to: [facility] [address] [place] [address] Note routed to a Blow Up Operator who will communicate referrals to facilities [...] results. PO hydralazine added for BP control. microbiology lab manager sites remain C/D/I, ecchymosis unchanged th roughout shift. See flowsheet for I+O's and safety rounding. Patient is able to make needs known and call capps within reach. PLAN MOVING FORWARD: Monitor Tele, control CP and BP, NPO at MD for cath, monitor catheterization laboratory technician sites, D/C Planning INDIVIDUALIZED FALL [...] 11:20 AM EDT Office Visit Cardiology at [address] [address] Izaiah Meyer MD [facility] [place] [address] Scheduled Referrals Name Type Priority Associated Diagnoses [...] 3:46 AM EDT) Neutrophil % 63.3 % [facility] Neutrophil Absolute 5.28 1.70 - 6.10 x10(3)/mc L [facility] Lymph % 15.2 % [facility] Lymphocytes Abs 1.3 0.9 - 3.2 x10(3)/mc L [facility] Monocyte % 16.9 % [facility] Monocyte Abs 1.4(H) 0.3 - 0.9 x10(3)/mc L [facility] Eos % 3.7 % [facility] Eosinophils Abs 0.3 0.0 - 0.4 x10(3)/mc L [facility] Basophil % 0.5 % ST. [...] ORDERABLE S [facility] [place] [address] * (ABNORMAL) Hemogram (11/03/2023 3:46 AM EDT) White Blood Cell 8.3 4.0 - 9.5 x10(3)/[facility] Red Blood Cell 3.77(L) 4.00 - 5.21 x10(6)/[facility] Hemoglobin 13.1 11.7 - [...] RDW Standard Deviation 54.7(H) 37.0 - 46.0 [facility] RDW coefficient of variation 14.6(H) 11.5 - 14.1 % [facility] Mean Platelet Volume 11.2 7.6 - 12.9 [facility] NRBC% auto 0.0 % [facility] NRBC Absolute 0.000 0.000 - 0.000 x10(3)/ L [facility] Blood 11/03/2023 3:46 AM EDT 11/03/2023 4:11 AM EDT Narrative Resulting Agency Comment Spec In Lab Qamar Gallardo MD HEMATOLOGY ORDERABLE S Performing Organization Address City/[facility]/ZIP Co de Phone Number [facility] [place] [address] * Phosphorus (11/03/2023 3:46 AM EDT) Phosphorus 3.2 2.5 - 4.5 mg/dL [facility] Comment:result rechecked-KS Blood 11/03/2023 3:46 AM EDT 11/03/2023 4:11 AM EDT Narrative Resulting Agency Comment Spec In Lab Rosa Cornejo MD CHEMISTRY ORDERABLE S Performing Organization Address [facility]/ZIP Co de Phone Number [facility] [place] [address] * Magnesium (11/03/2023 3:46 AM EDT) Magnesium 0.90 0.69 - 1.07 mmol/L [facility] Blood 11/03/2023 3:46 AM EDT 11/03/2023 4:11 AM EDT Narrative Resulting Agency Comment Spec In Lab Rosa Cornejo MD CHEMISTRY ORDERABLE S Performing Organization Address City/[facility]/ZIP Co de Phone Number [facility] [place] [address] * (ABNORMAL) Basic Metabolic Panel (non-fasting) (11/03/2023 [...] ORDERABLE S [facility] [place] [address] * EKG 12 Lead (11/02/2023 12:44 PM EDT) Ventricular rate 83 BPM MUSE SYSTEM Atrial Rate 83 BPM MUSE SYSTEM P-R Interval 216 ms MUSE SYSTEM QRS Duration 90 ms MUSE SYSTEM Q-T Interval 384 ms MUSE SYSTEM QTC Calculated (Bezet) 451 ms MUSE SYSTEM Calculated P Amelia 92 degrees MUSE SYSTEM Calculated R Amelia -51 degrees MUSE SYSTEM Calculated T Amelia -33 degrees MUSE SYSTEM INTERPRETATION Sinus rhythm [...] RBC, Urine <1 0 - 4 /HPF [facility] Comment: Interpret results with caution, microscopic results are from suboptimal specimen volume WBC, Urine 16(H) 0 - 5 /HPF [facility] Comment: Interpret results [...] URINE ORDERABLES [facility] [place] [address] * (ABNORMAL) Urinalysis with reflex Culture (11/02/2023 [...] HOSPITAL LABORATORY Leukocytes, Urine Dipstick Small(A) Negative [facility] Appearance, Urine Dipstick Cloudy(A) Clear [facility] Specific Hurst Urine Automated >=1.030(A) 1.005 - 1.030 [facility] Color, Urine Dipstick Dark Yellow Yellow [facility] Reflex to Culture Yes [facility] Clean Catch Urine 11/02/2023 11:40 AM EDT 11/02/2023 12:04 PM EDT Narrative Resulting Agency Comment Spec In Lab Rosa Hugo MD URINE ORDERABLES [facility] [place] [address] * Respiratory Panel PCR (11/02/2023 10:15 AM EDT) Respiratory Panel Source ADJUNCT LECTURER Swab [facility] Respiratory Panel PCR Negative Negative [facility] Comment: Respiratory Panels are performed on the Mobilisafe, using multiplexed PCR nucleic acid detection. ??Negative [...] performed using the [employer] Respiratory Panel 2.1 ([employer]) as authorized by the FDA issued Emergency Use Authorization (EUA). This panel also tests for multiple other viral and bacterial pathogens. This assay is intended for In-vitro Diagnostic (IVD) use with nasopharyngeal swabs in viral transport media. The assay is performed based on the instructions for use and additional guidance provided by the FDA. Testing is performed in laboratories within the [facility], each of which is certified under [...] fact sheets at the following FDA website: https://www.fda.gov/medical-devices/qpxbxcklzyv-dkxkykq-4607-ckiid-03-pgddrhjhs- use-a erppxtrujqeij-wblvabw-uqvteom/txzgj-lliihgwbiuk-svyx Human Metapneumovirus Not Detected Not Detected [facility] [...] ERAL ORDERABLES [facility] [place] [address] * XR Chest One View (11/02/2023 2:51 AM EDT) WORKSTATION ID [id number] DH RAD Anatomical Region Laterality Modality Chest [...] who have questions please contact the health pet care assistant that requested your imaging first. [...] patients who have questions please contactthe health pet care assistant that requested your imaging first. Rosa Hugo MD IMG DX ORDERABLES * (ABNORMAL) Differential, Automated (11/02/2023 12:35 AM EDT) Neutrophil % 76.5 % [facility] Neutrophil Absolute 7.69(H) 1.70 - 6.10 x10(3)/mc L [facility] Lymph % 8.3 % [facility] Lymphocytes Abs 0.8(L) 0.9 - 3.2 x10(3)/mc L [facility] Monocyte % 12.9 % [facility] Monocyte Abs 1.3(H) 0.3 - 0.9 x10(3)/mc L [facility] Eos % 1.4 % [facility] Eosinophils Abs 0.1 0.0 - 0.4 x10(3)/mc L [facility] Basophil % 0.4 % ST. [...] ORDERABLE S [facility] [place] [address] * (ABNORMAL) Hemogram (11/02/2023 12:35 AM EDT) [...] [facility] NRBC% auto 0.0 % [facility] NRBC Absolute 0.000 0.000 - 0.000 x10(3)/mc L [facility] Blood 11/02/2023 12:3 5 AM EDT 11/02/2023 12:43 AM EDT Narrative Resulting Agency Comment Spec In Lab Qamar Gallardo MD HEMATOLOGY ORDERABLE S [facility] [place] [address] * (ABNORMAL) Phosphorus (11/02/2023 12:35 AM EDT) Phosphorus 1.6(L) 2.5 - 4.5 mg/dL [facility] Blood 11/02/2023 12:3 5 AM EDT 11/02/2023 12:43 AM EDT Narrative Resulting Agency Comment Spec In Lab Rosa Cornejo MD CHEMISTRY ORDERABLE S Performing Organization Address [facility]/ZIP Co de Phone Number [facility] [place] [address] * Magnesium (11/02/2023 12:35 AM EDT) Magnesium 0.87 0.69 - 1.07 mmol/L [facility] Blood 11/02/2023 12:3 5 AM EDT 11/02/2023 12:43 AM EDT Narrative Resulting Agency Comment Spec In Lab Rosa Cornejo MD CHEMISTRY ORDERABLE S Performing Organization Address City/[facility]/ZIP Co de Phone Number [facility] [place] [address] * Basic Metabolic Panel (non-fasting) (11/02/2023 12:35 [...] ORDERABLE S [facility] [place] [address] * Blood culture (11/02/2023 12:35 AM EDT) Blood Culture No growth at 5 days. [facility] Blood 11/02/2023 12:3 5 AM EDT 11/02/2023 1:55 AM EDT Comment:#2 site ukn Narrative Resulting Agency Comment Spec In Lab Rosa Hugo MD MICROBIOLOGY - BLO OD ORDERABLES Performing Organization Address [facility] Co de Phone Number [facility] [place] [address] * Blood culture (11/02/2023 12:15 AM EDT) Blood Culture No growth at 5 days. [facility] Blood 11/02/2023 12:1 5 AM EDT 11/02/2023 1:54 AM EDT Comment:#1site unk Narrative Resulting Agency Comment Spec In Lab Rosa Hugo MD MICROBIOLOGY - BLO OD ORDERABLES Performing Organization Address [facility] Co de Phone Number [facility] [place] [address] * EKG 12 Lead (11/01/2023 10:10 PM EDT) Ventricular rate 139 BPM MUSE SYSTEM Atrial Rate 139 BPM MUSE SYSTEM P-R Interval 168 ms MUSE SYSTEM QRS Duration 84 ms MUSE SYSTEM Q-T Interval 286 ms MUSE SYSTEM QTC Calculated (Bezet) 435 ms MUSE SYSTEM Calculated R Amelia -59 degrees MUSE SYSTEM Calculated T Amelia -27 degrees MUSE SYSTEM INTERPRETATION Mid-RP tachycardia, consider sinus tachycardia or SVT Left axis deviation Moderate voltage criteria for LVH, may be normal variant ( R in aVL , Marcellus product ) Inferior infarct (cited on or before 01-NOV-2023) Anterolateral infarct (cited on or before 01-NOV-2023) Abnormal ECG When compared with ECG of 01-NOV-2023 15:22, Vent. rate Although rate has increased Serial changes of Anterior infarct Present I personally reviewed the tracing and edited the fellows interpretation Confirmed by fellow MD Bowen Ashley ([id number]) on 11/04/2023 7:57:50 AM Confirmed by MD Carrillo Danette ([id number]) on 11/04/2023 4:32:03 PM MUSE SYSTEM 11/01/2023 10:1 0 PM EDT 11/04/2023 4:32 PM EDT Rosa Cornejo MD ECG ORDERABLES MUSE SYSTEM * (ABNORMAL) Hemogram (11/01/2023 10:06 PM EDT) White Blood Cell 10.4(H) 4.0 - 9.5 x10(3)/[facility] Red Blood Cell 4.11 4.00 - 5.21 x10(6)/[facility] Hemoglobin 14.0 11.7 - [...] [facility] NRBC% auto 0.0 % [facility] NRBC Absolute 0.000 0.000 - 0.000 x10(3)/ L [facility] Blood 11/01/2023 10:0 6 PM EDT 11/01/2023 10:22 PM EDT Narrative Resulting Agency Comment Spec In Lab Rosa Hugo MD HEMATOLOGY ORDERAB LES Performing Organization Address City/[facility]/ZIP Co de Phone Number [facility] [place] [address] * POCT Glucose (11/01/2023 5:59 PM EDT) [facility] Signature Glucose, POC 104 65 - 199 mg/dL [facility] Comment: Supplemental ranges: <140 mg/dL before meals <180 mg/dL all other times of the day Blood 11/01/2023 5:59 PM EDT 11/01/2023 5:59 PM EDT Rosa Hugo MD POINT OF CARE TEST ORDERABLES Performing Organization Address [facility] Co de Phone Number [facility] [place] [address] * POCT Glucose (11/01/2023 5:35 PM EDT) [facility] Glucose, POC 85 65 - 199 mg/dL [facility] Comment: Supplemental ranges: <140 mg/dL before meals <180 mg/dL all other times of the day Blood 11/01/2023 5:35 PM EDT 11/01/2023 5:35 PM EDT Rosa Hugo MD POINT OF CARE TEST ORDERABLES Performing Organization Address City/[facility] Co de Phone Number [facility] [place] [address] * EKG 12 Lead (11/01/2023 3:22 PM EDT) Ventricular rate 59 BPM MUSE SYSTEM Atrial Rate 59 BPM MUSE SYSTEM P-R Interval 220 ms MUSE SYSTEM QRS Duration 94 ms MUSE SYSTEM Q-T Interval 428 ms MUSE SYSTEM QTC Calculated (Bezet) 423 ms MUSE SYSTEM Calculated P Amelia 76 degrees MUSE SYSTEM Calculated R Amelia -50 degrees MUSE SYSTEM Calculated T Amelia -59 degrees MUSE SYSTEM INTERPRETATION Sinus bradycardia [...] Other Narrative 11/02/2023 4:57 PM EDT ?[facility] ? Cardiac Catheterization/Intervention Report ? Patient Name: Adin Santos ? Procedure Date: 11/01/2023 ? A #: [id number] ? Primary Physician: Rosa Dewey I ? Case #: [id number] ? File Name: [id number] ? Catheterization Order Number: [id number] ? [facility] ? Final Report [place], [place] ? Patient Name: ? Adin M. Goguen ?ID#: ?[id number] ? : ?1940 ? Procedure Date: ? [...] procedure was Urgent. The indication for ?the catheterization laboratory technician visit is ACS greater than [...] ??A premounted ? 3.50 x 15 mm [place] [employer] (RADHA) was deployed with a maximum ? [...] A premounted 3.50 x 15 mm Andrea Dodge (RADHA) was deployed ? with a maximum [...] dose administered prior to arrival in the catheterization laboratory technician. ?Recommended anti-platelet/anti-thrombotic regimen: ?Continue aspirin [...] Procedure Note Rosa Dewey MD - 12/12/2023 [facility] Cardiac Catheterization/Intervention Report Patient Name: Adin Santos Procedure Date: 11/01/2023 A #: [id number] Primary Physician: Rosa Dewey I Case #: [id number] File Name: [id number] Catheterization Order Number: [id number] [facility] FinalReport [place], [place] Patient Name: Adin Santos ID#:[id number] :1940 Procedure Date: November 01, 2023 Case [...] was designated as ASA Class III. [facility] is 4: Vulnerable. Diagnostic Tests: Prior Coronary Angiography: LV ejection fraction within 6 months is 65%. Electrocardiography: EKG was assessed by ECG. EKG was Abnormal. EKG showed other abnormality. Medications Prior to Procedure: Aspirin, Angiotensin II Receptor Rodrick and Statin. Indications for Diagnostic Cath: The priority of the diagnostic procedure was Urgent. The indicationfor the catheterization laboratory technician visit is ACS greater than [...] 14 atmospheres. Apremounted 3.50 x 15 mm [place] [employer] (RADHA) was deployed with amaximum inflation pressure [...] The lesion was predilated with a 3.00mm [id number] MM balloon with a maximum inflation pressure of 14atmospheres. A premounted 3.50 x 15 mm [place] [employer] (RADHA) wasdeployed with a maximum inflation pressure [...] dose administered prior to arrival in the catheterization laboratory technician. Recommended anti-platelet/anti-thrombotic regimen: Continue aspirin [...] * POCT Glucose (11/01/2023 7:06 AM EDT) [facility] Glucose, POC 93 65 - 199 mg/dL [facility] Comment: Supplemental ranges: <140 mg/dL before meals <180 mg/dL all other times of the day Blood 11/01/2023 7:06 AM EDT 11/01/2023 7:06 AM EDT Jean Laboy MD POINT OF CARE TEST O RDERABLES [facility] [place] [address] * (ABNORMAL) Differential, Automated (11/01/2023 3:09 AM EDT) Pathologist [facility] Neutrophil % 63.9 % [facility] Neutrophil Absolute 5.54 1.70 - 6.10 x10(3)/mc L [facility] Lymph % 20.0 % [facility] Lymphocytes Abs 1.7 0.9 - 3.2 x10(3)/mc L [facility] Monocyte % 11.9 % [facility] Monocyte Abs 1.0(H) 0.3 - 0.9 x10(3)/mc L [facility] Eos % 3.2 % [facility] Eosinophils Abs 0.3 0.0 - 0.4 x10(3)/ L [facility] Basophil % 0.5 % [facility] Co de Phone Number [facility] [place] [address] * (ABNORMAL) Hemogram (11/01/2023 3:09 AM EDT) [...] [facility] NRBC% auto 0.0 % [facility] NRBC Absolute 0.000 0.000 - 0.000 x10(3)/mc L [facility] Blood 11/01/2023 3:09 AM EDT 11/01/2023 3:29 AM EDT Narrative Resulting Agency Comment Spec In Lab Qamar Gallardo MD HEMATOLOGY ORDERABLE S Performing Organization Address City/[facility]/ZIP Co de Phone Number [facility] [place] [address] * Phosphorus (11/01/2023 3:09 AM EDT) Phosphorus 2.5 2.5 - 4.5 mg/dL [facility] Blood 11/01/2023 3:09 AM EDT 11/01/2023 3:29 AM EDT Narrative Resulting Agency Comment Spec In Lab Rosa Cornejo MD CHEMISTRY ORDERABLE S Performing Organization Address City/[facility]/ZIP Co de Phone Number [facility] [place] [address] * Magnesium (11/01/2023 3:09 AM EDT) Magnesium 0.82 0.69 - 1.07 mmol/L [facility] Blood 11/01/2023 3:09 AM EDT 11/01/2023 3:29 AM EDT Narrative Resulting Agency Comment Spec In Lab Rosa Cornejo MD CHEMISTRY ORDERABLE S [facility] [place] [address] * (ABNORMAL) Basic Metabolic Panel (non-fasting) (11/01/2023 [...] ORDERABLE S [facility] [place] [address] * (ABNORMAL) Troponin (10/31/2023 2:46 PM EDT) [...] can be found in the [facility] Test Catalog Troponin - [facility] Test Catalog Reference: Fourth [place] Definition of Myocardial Infarction. Journal of the [place] College of Cardiology 2018;72:8112-7601 Blood 10/31/2023 2:46 PM EDT 10/31/2023 2:55 PM EDT Narrative Resulting Agency Comment Spec In Lab Jean Laboy MD CHEMISTRY ORDERABLES Performing Organization Address [facility] Co de Phone Number [facility] [place] [address] * EKG 12 Lead (10/31/2023 1:07 PM EDT) Ventricular rate 54 BPM MUSE SYSTEM Atrial Rate 54 BPM MUSE SYSTEM P-R Interval 218 ms MUSE SYSTEM QRS Duration 92 ms MUSE SYSTEM Q-T Interval 540 ms MUSE SYSTEM QTC Calculated (Bezet) 512 ms MUSE SYSTEM Calculated P Amelia 85 degrees MUSE SYSTEM Calculated R Amelia -44 degrees MUSE SYSTEM Calculated T Amelia -69 degrees MUSE SYSTEM INTERPRETATION Sinus bradycardia [...] Cornejo MD ECG ORDERABLES Performing Organization Address [facility] Co de Phone Number MUSE SYSTEM * (ABNORMAL) Troponin (10/31/2023 11:37 AM EDT) Pathologist [facility] Troponin-T, High Sensitivity 580(H) <=14 ng/L [facility] [...] can be found in the [facility] Test Catalog Troponin - [facility] Test Catalog Reference: Fourth [place] Definition of Myocardial Infarction. Journal of the [employer] College of Cardiology 2018;72:5659-4724 Blood 10/31/2023 11:3 7 AM EDT 10/31/2023 11:50 AM EDT Narrative Resulting Agency Comment Spec In Lab Rosa Cornejo MD CHEMISTRY ORDERABLE S [facility] [place] [address] * ECHO COMPLETE (10/31/2023 8:52 AM EDT) Anatomical Region Laterality Modality Cardiac Other 10/31/2023 7:57 AM EDT Narrative 10/31/2023 9:45 AM EDT 1 [place] [address] ? Echocardiogram Report Name: ADIN SANTOS ? Study Date: 10/31/2023 07:57 AMBP: 106/76 mmHg ? Patient Location: [facility] 0481 A : 1940 ? Height: 163 cm ? Account: [id number] Age: 83 yrs ? Weight: 76 kg Gender: Female ?BSA: 1.8 m2 Ordering Physician: ROSA DEWEY Referring Physician: OMAIRA GIRON Performed By: HAFSA Carmichael Reason For Study: STEMI Interpreting Fellow: Raymond Warren. Exam Location: [facility]. Interpretation Summary -The left [...] is no prior echocardiogram for comparison. Procedure Complete-50397. Satisfactory quality. There is sinus bradycardia. Left [...] Note Edgard Wang MD - 10/31/2023 [address] [place] [id number] Echocardiogram Report Name: TREY SANTOSMarco A Catherine Study Date: 407:57 AMBP: 106/76 mmHg Patient Location: [address] : 1940 Height: 163 cm Account: [id number] Age: 83 yrs Weight: 76 kg Gender: Female BSA: 1.8 m2 Ordering Physician: ROSA DEWEY Referring Physician: OMAIRA GIRON Performed By: HAFSA Carmichael Reason For Study: STEMI Interpreting Fellow: Raymond Warren. Exam Location: [facility]. Interpretation Summary -The left [...] is no prior echocardiogram for comparison. Procedure Complete-24363. Satisfactory quality. There is sinus bradycardia. Left [...] can be found in the [facility] Test Catalog Troponin - [facility] Test Catalog Reference: Fourth [place] Definition of Myocardial Infarction. Journal of the Canadian College of Cardiology 2018;72:3121-5355 Blood 10/31/2023 8:51 AM EDT 10/31/2023 9:12 AM EDT Narrative Resulting Agency Comment Spec In Lab Rosa Cornejo MD CHEMISTRY ORDERABLE S Performing Organization Address City/State/[facility] Co de Phone Number [facility] [place] [address] * CARDIAC CATHETERIZATION (10/31/2023 8:10 AM EDT) Anatomical Region Laterality Modality Other Narrative 11/07/2023 9:42 AM EDT ?[facility] ? Cardiac Catheterization/Intervention Report ? Patient Name: Adin Santos M. ? Procedure Date: 10/30/2023 ? A #: [id number] ? Primary Physician: Rosa Dewey I ? Case #: [id number] ? File Name: [id number] ? Catheterization Order Number: [id number] ? [facility] ?[facility] ? Final Report [place], [place] ? Patient Name: ? Adin M. Goguen ?ID#: ?[id number] ? : ?1940 ? Procedure Date: ? October 30, 2023 ? Case #: ? [id number] ? Room: ? 5 ? Case Physician: [...] procedure was Emergent. The indication for ?the catheterization laboratory technician visit is ACS less than [...] A premounted 4.00 x 38 mm Andrea Dodge (RADHA) was deployed ? with a maximum [...] dose administered prior to arrival in the catheterization laboratory technician. ?Recommended anti-platelet/anti-thrombotic regimen: ?Continue aspirin [...] Note Rosa Dewey MD - 12/05/2023 [facility] Cardiac Catheterization/Intervention Report Patient Name: Adin Santos Procedure Date: 10/30/2023 A #: [id number] Primary Physician: Rosa Dewey I Case #: [id number] File Name: [id number] Catheterization Order Number: [id number] [facility] FinalReport [place], [place] Patient Name: Adin Santos ID#:[id number] :1940 Procedure Date: October 30, 2023 Case [...] was designated as ASA Class III. The [facility] clinical frailtyscale is 5: Mildly Frail. Diagnostic Tests: Electrocardiography: EKG was assessed by ECG. EKG was Abnormal. EKG showed STDeviation >= 0.5 mm, other abnormality and dynamic EKG changes. Medications Prior to Procedure: Aspirin, Angiotensin II Receptor Rodrick, Beta Rodrick andStatin. Indications for Diagnostic Cath: The priority of the diagnostic procedure was Emergent. Theindication for the catheterization laboratory technician visit is ACS less than [...] 16atmospheres. A premounted 4.00 x 38 mm [place] [employer] (RADHA) wasdeployed with a maximum inflation pressure [...] dose administered prior to arrival in the catheterization laboratory technician. Recommended anti-platelet/anti-thrombotic regimen: Continue aspirin [...] * (ABNORMAL) Troponin (10/31/2023 4:21 AM EDT) [facility] Troponin-T, High Sensitivity 457(H) <=14 ng/L [facility] [...] can be found in the [facility] Test Catalog Troponin - [facility] Test Catalog Reference: Fourth [place] Definition of Myocardial Infarction. Journal of the Canadian College of Cardiology 2018;72:2206-7793 Blood 10/31/2023 4:21 AM EDT 10/31/2023 4:30 AM EDT Narrative Resulting Agency Comment Spec In Lab Rosa Cornejo MD CHEMISTRY ORDERABLE S Performing Organization Address City/State/[facility] Co de Phone Number [facility] [place] [address] * (ABNORMAL) Differential, Automated (10/31/2023 3:05 AM EDT) Neutrophil % 71.7 % [facility] Neutrophil Absolute 8.21(H) 1.70 - 6.10 x10(3)/mc L [facility] Lymph % 16.9 % [facility] Lymphocytes Abs 1.9 0.9 - 3.2 x10(3)/mc L [facility] Monocyte % 9.4 % [facility] Monocyte Abs 1.1(H) 0.3 - 0.9 x10(3)/mc L [facility] Eos % 1.3 % [facility] Eosinophils Abs 0.2 0.0 - 0.4 x10(3)/mc L [facility] Basophil % 0.4 % [facility] Co de Phone Number [facility] [place] [address] * (ABNORMAL) Hemogram (10/31/2023 3:05 AM EDT) [...] [facility] NRBC% auto 0.0 % [facility] NRBC Absolute 0.000 0.000 - 0.000 x10(3)/mc L [facility] Blood 10/31/2023 3:05 AM EDT 10/31/2023 3:13 AM EDT Narrative Resulting Agency Comment Spec In Lab Qamar Gallardo MD HEMATOLOGY ORDERABLE S Performing Organization Address [facility] Co de Phone Number [facility] [place] [address] * (ABNORMAL) APTT (10/31/2023 3:05 AM EDT) [...] MD HEMATOLOGY ORDERABL ES Performing Organization Address [facility] Co de Phone Number [facility] [place] [address] * (ABNORMAL) Prothrombin Time (10/31/2023 3:05 AM [...] ORDERABL ES [facility] [place] [address] * (ABNORMAL) Differential, Automated (10/31/2023 1:37 AM EDT) Neutrophil % 71.1 % [facility] Neutrophil Absolute 7.53(H) 1.70 - 6.10 x10(3)/mc L [facility] Lymph % 18.0 % [facility] Lymphocytes Abs 1.9 0.9 - 3.2 x10(3)/mc L [facility] Monocyte % 8.7 % [facility] Monocyte Abs 0.9 0.3 - 0.9 x10(3)/mc L [facility] Eos % 1.6 % [facility] Eosinophils Abs 0.2 0.0 - 0.4 x10(3)/mc L [facility] Basophil % 0.4 % ST. [...] ORDERABLE S [facility] [place] [address] * (ABNORMAL) Hemogram (10/31/2023 1:37 AM EDT) [...] [facility] NRBC% auto 0.0 % [facility] NRBC Absolute 0.000 0.000 - 0.000 x10(3)/mc L [facility] Blood 10/31/2023 1:37 AM EDT 10/31/2023 1:46 AM EDT Narrative Resulting Agency Comment Spec In Lab Qamar Gallardo MD HEMATOLOGY ORDERABLE S [facility] [place] [address] * Phosphorus (10/31/2023 1:37 AM EDT) [facility] Phosphorus 3.2 2.5 - 4.5 mg/dL [facility] Blood 10/31/2023 1:37 AM EDT 10/31/2023 1:46 AM EDT Narrative Resulting Agency Comment Spec In Lab Rosa Cornejo MD CHEMISTRY ORDERABLE S Performing Organization Address City/[facility]/ZIP Co de Phone Number [facility] [place] [address] * Magnesium (10/31/2023 1:37 AM EDT) [facility] Magnesium 0.83 0.69 - 1.07 mmol/L [facility] Blood 10/31/2023 1:37 AM EDT 10/31/2023 1:46 AM EDT Narrative Resulting Agency Comment Spec In Lab Rosa Cornejo MD CHEMISTRY ORDERABLE S Performing Organization Address City/[facility]/ZIP Co de Phone Number [facility] [place] [address] * Basic Metabolic Panel (non-fasting) (10/31/2023 1:37 AM EDT) [facility] Glucose 114 65 - 199 mg/dL [...] ORDERABLE S [facility] [place] [address] * (ABNORMAL) Troponin (10/31/2023 1:37 AM EDT) [...] can be found in the [facility] Test Catalog Troponin - [facility] Test Catalog Reference: Fourth [place] Definition of Myocardial Infarction. Journal of the Canadian College of Cardiology 2018;72:7190-4425 Blood 10/31/2023 1:37 AM EDT 10/31/2023 1:46 AM EDT Narrative Resulting Agency Comment Spec In Lab Rosa Cornejo MD CHEMISTRY ORDERABLE S Performing Organization Address City/State/[facility] [place] [place] [address] * EKG 12 Lead (10/31/2023 1:20 AM EDT) Ventricular rate 52 BPM MUSE SYSTEM Atrial Rate 52 BPM MUSE SYSTEM P-R Interval 224 ms MUSE SYSTEM QRS Duration 108 ms MUSE SYSTEM Q-T Interval 544 ms MUSE SYSTEM QTC Calculated (Bezet) 505 ms MUSE SYSTEM Calculated P Amelia 90 degrees MUSE SYSTEM Calculated R Amelia -57 degrees MUSE SYSTEM Calculated T Amelia -63 degrees MUSE SYSTEM INTERPRETATION Sinus bradycardia with 1st degree A-V block Pulmonary disease pattern Left anterior fascicular block Moderate voltage criteria for LVH, may be normal variant ( R in aVL , Marcellus product ) T wave abnormality, consider inferior ischemia T wave abnormality, consider anterolateral ischemia Prolonged QT Abnormal ECG When compared with ECG of 30-OCT-2023 22:40, No significant change was found Confirmed by Butch Soto MD (1960) on 11/01/2023 8:58:03 PM MUSE SYSTEM 10/31/2023 1:20 AM EDT 11/01/2023 8:58 PM EDT Rosa Cornejo MD ECG ORDERABLES Performing Organization Address [facility] de Phone Number MUSE SYSTEM * EKG 12 Lead (10/30/2023 10:40 PM EDT) Ventricular rate 55 BPM MUSE SYSTEM Atrial Rate 55 BPM MUSE SYSTEM P-R Interval 232 ms MUSE SYSTEM QRS Duration 102 ms MUSE SYSTEM Q-T Interval 520 ms MUSE SYSTEM QTC Calculated (Bezet) 497 ms MUSE SYSTEM Calculated P Amelia 75 degrees MUSE SYSTEM Calculated R Amelia -53 degrees MUSE SYSTEM Calculated T Amelia -57 degrees MUSE SYSTEM INTERPRETATION Sinus bradycardia with 1st degree A-V block Left anterior fascicular block Moderate voltage criteria for LVH, may be normal variant ( R in aVL , Marcellus product ) T wave abnormality, consider inferior ischemia T wave abnormality, consider anterolateral ischemia Prolonged QT Abnormal ECG When compared with ECG of 30-OCT-2023 20:21, Incomplete right bundle branch block is no longer Present Confirmed by Charles COFFMAN, Butch (1960) on 11/01/2023 8:58:01 PM MUSE SYSTEM 10/30/2023 10:4 0 PM EDT 11/01/2023 8:58 PM EDT Rosa Cornejo MD ECG ORDERABLES Performing Organization Address [facility] Phone Number MUSE SYSTEM * XR Chest One View (10/30/2023 10:10 PM EDT) WORKSTATION ID [id number] RAD Anatomical Region Laterality Modality Chest N/A Digital Radiogra phy Impressions 10/30/2023 10:32 PM EDT 1. ??Examination limited by low lung volumes. 2. ??Findings suggesting pulmonary vascular congestion with possible mild interstitial edema. 3. ??Known ascending aortic aneurysm, as seen on recent CT. 4. ??Nonspecific widening mediastinum. This can be secondary to magnification from portable technique and low lung volumes. Findings similar to racing secretary radiograph from CT 10/30/2023. Thank you for letting us participate in the care of this patient. ??If you are a health care provider and have any questions regarding this report, please contact the number below. ??For patients who have questions please contact the health pet care assistant that requested your imaging first. [...] and low lung volumes. Findings similar to racing secretary radiograph from CT 10/30/2023. Thank you for letting us participate in the care of this patient. If youare a health care provider and have any questions regarding this report,please contact the number below. For patients who have questions please contactthe health pet care assistant that requested your imaging first. Rosa Cornejo MD IMG DX ORDERABLES * Green Tube HOLD (10/30/2023 10:05 PM EDT) [facility] Green Hold Sample in lab. [facility] Blood Venous Draw / Unknown 10/30/2023 10:05 PM EDT 10/30/2023 10:13 PM EDT Qamar Gallrado MD CHEMISTRY ORDERABLES [facility] [place] [address] * (ABNORMAL) Differential, Automated (10/30/2023 10:05 PM EDT) [facility] Neutrophil % 76.6 % [facility] Neutrophil Absolute 6.94(H) 1.70 - 6.10 x10(3)/mc L [facility] Lymph % 15.4 % [facility] Lymphocytes Abs 1.4 0.9 - 3.2 x10(3)/mc L [facility] Monocyte % 6.1 % [facility] Monocyte Abs 0.6 0.3 - 0.9 x10(3)/mc L [facility] Eos % 1.1 % [facility] Eosinophils Abs 0.1 0.0 - 0.4 x10(3)/ L [facility] Basophil % 0.6 % ST. [...] ORDERABLE S [facility] [place] [address] * (ABNORMAL) Hemogram (10/30/2023 10:05 PM EDT) [...] [facility] NRBC% auto 0.0 % [facility] NRBC Absolute 0.000 0.000 - 0.000 x10(3)/mc L [facility] Blood 10/30/2023 10:0 5 PM EDT 10/30/2023 10:12 PM EDT Narrative Resulting Agency Comment Spec In Lab Qamar Gallardo MD HEMATOLOGY ORDERABLE S Performing Organization Address City/[facility]/ZIP Co de Phone Number [facility] [place] [address] * Hemoglobin A1c (10/30/2023 10:05 PM EDT) [...] Mellitus, Diabetes Care 2013; 36: Suppl. 1, B32-16 Estimated Average Glucose See note mg/dL [facility] Comment: Estimated Average Glucose not appropriate for patients over 70 years of age. Blood 10/30/2023 10:0 5 PM EDT 10/30/2023 10:12 PM EDT Narrative Resulting Agency Comment Spec In Lab Rosa Cornejo MD CHEMISTRY ORDERABLE S Performing Organization Address City/[facility]/ZIP Co de Phone Number [facility] [place] [id number] * Lipid Panel (Reflex Direct LDL) (10/30/2023 10:05 PM EDT) Cholesterol, Total 218 mg/dL [facility] Comment: Desirable: ? <200 mg/dL Borderline High: 200-239 mg/dL Higher: ?>rq=535 mg/dL Triglyceride 46 mg/dL [facility] Comment: Normal: ?<150 mg/dL Borderline High: 150-199 mg/dL High: ?200-499 mg/dL Very High: ? >mk=702 mg/dL HDL Cholesterol 64 mg/dL [facility] Comment: Females: High Risk: <50 mg/dL Males: High Risk: <40 mg/dL LDL Cholesterol 145 mg/dL [facility] Comment: Desirable: ? <100 mg/dL Above Desirable: 100-129 mg/dL Borderline High: 130-159 mg/dL High: ?160-189 mg/dL Very High: ? >xw=859 mg/dL Lipid Interpretation See Note [facility] [...] ACC/AHA Guidelines (most recently Feliciano et al. [facility] 03/23/22): For individuals with atherosclerotic cardiovascular disease (ASCVD)or LDL >ep=254 mg/dL, use a high-intensity statin (40-80 mg [...] ORDERABLE S [facility] [place] [address] * TSH [place] (10/30/2023 10:05 PM EDT) Thyroid Stimulating Hormone 3.35 0.27 - 4.20 mcIU/mL [facility] Comment: Reference Interval (mcIU/mL): Females: ??First Trimester: 0.23-3.88 ??Second Trimester: 0.22-3.90 ??Third Trimester: 0.44-4.66 Blood 10/30/2023 10:0 5 PM EDT 10/30/2023 10:12 PM EDT Narrative Resulting Agency Comment Spec In Lab Rosa Cornejo MD CHEMISTRY ORDERABLE S [facility] [place] [address] * pro-Brain Natriuretic Peptide (10/30/2023 10:05 PM EDT) NT-proBNP 375 <=449 pg/mL [facility] Blood 10/30/2023 10:0 5 PM EDT 10/30/2023 10:12 PM EDT Narrative Resulting Agency Comment Spec In Lab Rosa Cornejo MD CHEMISTRY ORDERABLE S Performing Organization Address [facility]/ZIP Co de Phone Number [facility] [place] [address] * (ABNORMAL) Comprehensive metabolic panel (non-fasting) (10/30/2023 10:05 PM EDT) Pathologist [facility] Glucose 121 65 - 199 mg/dL [facility] [...] MD CHEMISTRY ORDERABLE S Performing Organization Address City/[facility]/ZIP Co de Phone Number [facility] [place] [address] * Phosphorus (10/30/2023 10:05 PM EDT) Phosphorus 3.3 2.5 - 4.5 mg/dL [facility] Blood 10/30/2023 10:0 5 PM EDT 10/30/2023 10:12 PM EDT Narrative Resulting Agency Comment Spec In Lab Rosa Cornejo MD CHEMISTRY ORDERABLE S Performing Organization Address City/[facility]/ZIP Co de Phone Number [facility] [place] [address] * Magnesium (10/30/2023 10:05 PM EDT) Magnesium 0.86 0.69 - 1.07 mmol/L [facility] Blood 10/30/2023 10:0 5 PM EDT 10/30/2023 10:12 PM EDT Narrative Resulting Agency Comment Spec In Lab Rosa Cornejo MD CHEMISTRY ORDERABLE S [facility] [place] [address] * (ABNORMAL) Troponin (10/30/2023 10:05 PM EDT) [...] can be found in the [facility] Test Catalog Troponin - [facility] Test Catalog Reference: Fourth [place] Definition of Myocardial Infarction. Journal of the [place] College [employer] 2018;72:1806-9867 Blood 10/30/2023 10:0 5 PM EDT 10/30/2023 10:12 PM EDT Narrative Resulting Agency Comment Spec In Lab Rosa Cornejo MD CHEMISTRY ORDERABLE S [facility] [place] [address] * EKG 12 Lead (10/30/2023 8:21 PM EDT) Ventricular rate 49 BPM MUSE SYSTEM Atrial Rate 49 BPM MUSE SYSTEM P-R Interval 230 ms MUSE SYSTEM QRS Duration 96 ms MUSE SYSTEM Q-T Interval 526 ms MUSE SYSTEM QTC Calculated (Bezet) 475 ms MUSE SYSTEM Calculated P [place] 98 degrees MUSE SYSTEM Calculated R Amelia -48 degrees MUSE SYSTEM Calculated T Amelia -51 degrees MUSE SYSTEM INTERPRETATION Sinus bradycardia [...] Cornejo MD ECG ORDERABLES Performing Organization Address City/[facility] Co de Phone Number MUSE [...] - Provider: Admin Adt)[id number] (Given - Provider: Mayr Sweeney, TANESHA)2019 (Given - Provider: Danica Shipley [...] documented as of this encounter Care Teams Sleeve Setter Safety Stitch Relationship Specialty Start Date End Date Rosie Mathews MD [address] [place] [id number] PCP - General Family Medicine 11/25/17 11/23/23 documented as of this encounter
--- OUTSIDE RECORDS SUMMARY | 2024-02-29 10:16 | XMS_ITS | Encounter Summary ---
Author Organization [facility] [place] [address] Care Team Providers Care Sole Layer Hand Name Role Phone Rosie Mathews MD Primary Care Provider [phone] Reason for Visit * Auth/Cert (Routine) Specialty Diagnoses / Procedures Referred By Contbruce t Referred To Contact Diagnoses Unstable angina Chest pain NSTEMI Procedures CARDIAC CATHETERIZATION Rosa Dewey MD [facility] [place] [address] [place] [address] [facility] Referral ID Status Reason Start Date Expiration Date Visits Re quested Visits Authorized [id number] 1 1 Encounter Details Date Type Department Care Team (Late st Contact Info) Description 11/01/2023 3:33 PM EDT - 11/01/2023 5:03 PM EDT Surgery [place] [address] Rosa Dewey MD [facility] [address] [place], [place] [id number] CARDIAC CATHETERIZATION Social History Tobacco Use Types Packs/Day Years Used Date Smoking Tobacco: Former Smokeless Tobacco: Never Alcohol Use Standard Drinks/Week Comments Not Currently 0 (1 standard drink = 0.6 oz pur e alcohol) [facility] Utilities Answer Date Recorded In the [...] for hypertension and hyperlipidemia who presented to [facility] as a transfer from [facility] as a possible STEMI alert with acute onset chest pain. The patient reports that her symptoms initially began on Tuesday when she was walking to [facility] and experienced bilateral arm heaviness while walking with no other symptoms. Then, this afternoon shereports developing bilateral achy shoulder pain and nonradiating substernal left-sided chest pressure that was 7/10 in severity after coming home from [facility]. The patient denies any associated fevers, chills, [...] on repeat, her TRU resolved. Cardiology at [facility] was consulted for transfer; the patient was loaded with aspirin 324 mg and ticagrelor 180 mg, started on a heparin drip, and given nitroglycerin with improvement in chest pain. Upon arrival to [facility], the patient was taken directly to the Extractive Metallurgist. Two lesions were discovered: one in the prox RCA (felt to almost be a MEN'S SWIM COACH but they were able to wire, balloon, [...] administered prior to arrival in the lab analyst. Recommended anti-platelet/anti-thrombotic regimen: Continue aspirin [...] and low lung volumes. Findings similar to system specialist radiograph from CT 10/30/2023. Pending Studies and [...] 10:40 AM Izaiah Meyer MD Cardiology at [place] Arrive at: [facility] [address] [phone] Future Orders Complete By Expires Referral to Cardiac Rehab [[id number] Custom] As directed Process Instructions: If no progress note charted, please enter Clinical details in comments. Scheduling Instructions: Questions: My question or request is: STEMI. Cardiac rehab at [facility]. Referral to Home Health [[id number] Custom] As directed Process Instructions: If no progress note charted, please enter Clinical details in comments. Scheduling Instructions: Comments: Please evaluate Adin Santos for admission to Home Health. [address] [facility] [address] (home) Date of : 1940 Inpatient DOCUMENTATION FOR VNA SERVICES (INCLUDING THOSE PATIENTS WITH MEDICARE COVERAGE REQUIRING HOME VNA SERVICES AND/OR HOSPICE SERVICES) PATIENT'S LOCATION: Adin Santos [address] [facility] [address] (home) Cell: Telephone Information: Engineering Agent's Name: self In discussion with the attending physician, it is certified that this patient is under their care and that they, or a Nurse Practitioner, Clinical Nurse specialist or Physician Supervising Producer who is working directly with them, had [...] regarding health issues HOME HEALTH CARE AGENCY: [facility] [address] [address] START OF CARE: within 24-48 hours of [...] MD [address] / [facility] [address] . All A agencies which [...] MD / Dr. Masood Pierson [address] [place] [address] 11/09/23 1:55 PM arrival for 2:10 PM appointment Natural Resources Manager: Izaiah Meyer MD [address] [place] [id number] , 11/24/2023 10:40 AM Your Inpatient Medical Team at [facility] Name(s) of your inpatient provider(s): Attending physician: Rosa Hugo MD Resident physicians: Emile Robles MD; Elmer Tamez MD If you have non-emergent questions, prior to your follow-up visit call: Tuesday-Tuesday between the hours of 8AM-5PM please call the Cardiology Clinic [phone] to speak with a nurse. All other hours please call the Hospital Telecom Engineer [phone] and ask to speak to the conciliator on-call. Your Primary Care Provider Rosie Mathews MD [phone] For questions regarding this document or issues relating to this hospitalization on the Medical Service, please contact your inpatient physician through the [facility] Telecom Engineer . Issues afterhours and on weekends will be handled by the Natural Resources Manager staff on-call. Associated attestation - Rosa [...] Mathews MD / Dr. Masood Pierson [address] [place] [phone] 11/09/23 1:55 PM arrival for 2:10 PM appointment Natural Resources Manager: Izaiah Meyer MD [address] [place] [address] , 11/24/2023 10:40 AM Your Inpatient Medical Team at [facility] Name(s) of your inpatient provider(s): Attending physician: Rosa Hugo MD Resident physicians: Emile Robles MD; Elmer Tamez MD If you have non-emergent questions, prior to your follow-up visit call: Tuesday-Tuesday between the hours of 8AM-5PM please call the Cardiology Clinic [phone] to speak with a nurse. All other hours please call the Hospital Telecom Engineer [phone] and ask to speak to the conciliator on-call. Your Primary Care Provider Rosie Mathews MD [phone] documented in this encounter Medications at Time [...] for hypertension and hyperlipidemia who presented to [facility] for hypertension and hyperlipidemia who presented to [facility] [...] Resident on Cardiology Service Cardiology S1 (Pager [phone]) Note written in conjunction with Claudio Perla [facility] Medical Student, MS3 Associated attestation [...] Nirmala Webb - 11/01/2023 11:25 AM EDT Technical Intern Encounter Note Patient Name: Adin Santos : [id number] MR#: [id number] Admit Date: 10/30/2023 5:11 PM Hospital Day 2 days Narrative: Self initiated visit to patient for Spiritual support in a regular unit rounds. Assessment: Patient is in the bathroom at the time of this visit. Not a good time for Certified Medical Coding Specialist visit. Intervention and Outcome: An attempted [...] for hypertension and hyperlipidemia who presented to [facility] and low lung volumes. Findings similar to system specialist radiograph from CT 10/30/2023. Scheduled Medications: [AUG [...] for hypertension and hyperlipidemia who presented to [facility] [...] Resident on Cardiology Service Cardiology S1 (Pager [phone]) Note written in conjunction with Claudio Perla [facility] Medical Student, MS3 Associated attestation [...] for hypertension and hyperlipidemia who presented to [facility] as a transfer from [facility] as a possible STEMI alert with acute onset chest pain. Active Problems: Active Hospital Problems Diagnosis Unstable angina Resolved Hospital Problems No resolved problems to display. 24 hr events: - Cath'd yesterday with lesion in the proximal RCA (initially thought it was MEN'S SWIM COACH but they were ableto wire, balloon and [...] and low lung volumes. Findings similar to system specialist radiograph from CT 10/30/2023. TTE (10/30): Interpretation [...] for hypertension and hyperlipidemia who presented to [facility] a [facility] [...] Resident on Cardiology Service Cardiology S1 (Pager [phone]) Note written in conjunction with Claudio Perla [facility] Medical Student, MS3 Associated attestation [...] PCP: Rosie Mathews MD PCP phone number: [phone] Date of Admission: 10/30/2023 ( Hospital Day 0 days ) Attending:Rosa Cornejo MD ID: Adin Santos is a 83 y.o. female PMH significant for hypertension and hyperlipidemia who presented to [facility] as a transfer from [facility] as a possible STEMI alert with acute onset chest pain. The patient reports that her symptoms initially began on Tuesday when she was walking to [facility] and experienced bilateral arm heaviness while walking with no other symptoms. Then, this afternoon shereports developing bilateral achy shoulder pain and nonradiating substernal left-sided chest pressure that was 7/10 in severity after coming home from jainism. The patient denies any associated fevers, chills, [...] on repeat, her TRU resolved. Cardiology at [facility] was consulted for transfer; the patient was loaded with aspirin 324 mg and ticagrelor 180 mg, started on a heparin drip, and given nitroglycerin with improvement in chest pain. Upon arrival to [facility], the patient was taken directly to the Extractive Metallurgist. Two lesions were discovered: one in the prox RCA (felt to almost be a MEN'S SWIM COACH but they were able to wire, balloon, [...] and low lung volumes. Findings similar to system specialist radiograph from CT 10/30/2023. Assessment & Plan: Adin Santos is a 83 y.o. female PMH significant for hypertension and hyperlipidemia who presented to [facility] with HTN HLD transferred with chest from [facility]. BP 217/68, HR 71 [...] information for follow-up Home Health & Hospice, [place] [address] TANESHA BOYCE confirmed with [facility] that they will see the patient [...] N/A Patient is insured through: Primary Insurance: [employer] MANAGED MEDICARE Payor: [employer] MANAGED MEDICARE / Plan: [employer] MA[employer]GED MEDICARE PPO / Product Type: *No [...] in the room. Electrolytes replaced, see MAR. mechanical shop laborer sites remained C/D/I with baseline ecchymosis unchanged. Pt complained of back pain, lidocaine patch given. Right IV infiltrated during infusion, patient is marked with sharpie, IV removed. See flowsheet for I+O's and safety rounding. Patient is able to make needs known and call capps within reach. PLAN MOVING FORWARD: Monitor Tele, control BP, monitor lab analyst sites, D/C Planning INDIVIDUALIZED FALL [...] in an outpatient cardiac rehabilitation program at [facility] was discussed. Patient agrees [...] above on RA. PT went to lab analyst today. Left fem site oozed [...] FORWARD: Monitor Tele, control BP, monitor lab analyst sites, D/C Planning INDIVIDUALIZED FALL [...] Admitted From: Transfer from another hospital Location: [facility] Reason for Hospitalization: chest [...] receiving care in [place] must abide by [place] law. The hierarchy [...] (i) The agent with financial power of marble helper or a conservator appointed in accordance with [...] has the electric, gas, oil, or water [employer] threatened to shut off services in your [...] toilet seat Home Address confirmed as: [address] [facility] [address] Social & Family Supports: All names listed below confirmed with patient as current and correct Extended Emergency Contact Information Primary Emergency Contact: Iris Downing Address: [address] [place], [place] [address] [place] [address] Mobile Relation: Child Secondary Emergency Contact: Karen More Address: [address] [facility] [address] [facility] Mobile Relation: Child Current Care Provided by: self Provides Primary Care For: no one Caregiver if needed: child(emmanuel), adult Quality of Family relationships: involved, supportive Community Resources being provided currently: other (see comments) (receives [facility] services at home (1xweekly)) [...] Specific Information: N/A Health/Prescription Coverage: Primary Insurance: [employer] MANAGED MEDICARE Payor: [employer] MANAGED MEDICARE / Plan: [employer] MANAGED MEDICARE PPO / Product Type: *No Product type* / Secondary Insurance: N/A Prescription Coverage: Yes Preferred Pharmacy: [id number] - [place], [place] - [address] [place] [id number] Status: Patient is a : No Primary Care Provider listed: Masood Pierson MD [phone] Patient/Caregiver Goals of Treatment: home when MR Potential Needs for Transition of Care: home health care Agency Referrals: Not Applicable I have met with the patient to: discuss discharge planning needs. provide the [facility], Office of Care Management letter from the Manifest Clerk pertaining to rehab referrals. provide a letter describing our affiliations within the [facility] and educate about their right to choose where referrals are sent. provide a list of Home Health Agencies / Durable Medical Equipment vendors which serve their preferred geographic area. provided patient with [facility] Star Quality Rating handout. They have requested referrals to: [facility] [address] [place] [address] Note routed to a Loading Machine Adjuster who will communicate referrals to facilities and [...] results. PO hydralazine added for BP control. mechanical shop laborer sites remain C/D/I, ecchymosis unchanged th roughout shift. See flowsheet for I+O's and safety rounding. Patient is able to make needs known and call capps within reach. PLAN MOVING FORWARD: Monitor Tele, control CP and BP, NPO at MD for cath, monitor lab analyst sites, D/C Planning INDIVIDUALIZED FALL [...] AM EDT Office Visit Cardiology at [address] [place] [address] Izaiah Meyer MD [facility] [address] Scheduled Referrals Name Type Priority Associated Diagnoses [...] [facility] Lymph % 15.2 % [facility] Lymphocytes Abs 1.3 0.9 - 3.2 x10(3)/mc L [facility] Monocyte % 16.9 % [facility] Monocyte Abs 1.4(H) 0.3 - 0.9 x10(3)/mc L [facility] Eos % 3.7 % [facility] [...] HEMATOLOGY ORDERABLE S [facility] [place] [address] * (ABNORMAL) Hemogram (11/03/2023 3:46 AM EDT) White Blood Cell 8.3 4.0 - 9.5 x10(3)/mc L [facility] Red Blood Cell 3.77(L) 4.00 - 5.21 x10(6)/mc L [facility] Hemoglobin 13.1 11.7 - [...] Platelet 181 145 - 357 x10(3)/mc L [facility] RDW Standard Deviation 54.7(H) 37.0 - 46.0 fL [facility] [...] MD HEMATOLOGY ORDERABLE S Performing Organization Address City/[facility]/ZIP Co de Phone Number [facility] [place] [address] * Phosphorus (11/03/2023 3:46 AM EDT) Pathologist [facility] Phosphorus 3.2 2.5 - 4.5 mg/dL [facility] Comment:result rechecked-KS Blood 11/03/2023 3:46 AM EDT 11/03/2023 4:11 AM EDT Narrative Resulting Agency Comment Spec In Lab Rosa Cornejo MD CHEMISTRY ORDERABLE S Performing Organization Address [facility] Co de Phone Number [facility] [place] [address] * Magnesium (11/03/2023 3:46 AM EDT) [facility] Magnesium 0.90 0.69 - 1.07 mmol/L [facility] Blood 11/03/2023 3:46 AM EDT 11/03/2023 4:11 AM EDT Narrative Resulting Agency Comment Spec In Lab Rosa Cornejo MD CHEMISTRY ORDERABLE S Performing Organization Address [facility] Co de Phone Number [facility] [place] [address] * (ABNORMAL) Basic Metabolic Panel (non-fasting) (11/03/2023 3:46 AM EDT) Pathologist [facility] Glucose 105 65 - 199 mg/dL [facility] [...] CHEMISTRY ORDERABLE S [facility] [place] [address] * EKG 12 Lead (11/02/2023 12:44 PM EDT) Ventricular rate 83 BPM MUSE SYSTEM Atrial Rate 83 BPM MUSE SYSTEM P-R Interval 216 ms MUSE SYSTEM QRS Duration 90 ms MUSE SYSTEM Q-T Interval 384 ms MUSE SYSTEM QTC Calculated (Bezet) 451 ms MUSE SYSTEM Calculated P [place] 92 degrees MUSE SYSTEM Calculated R [place] -51 degrees MUSE SYSTEM Calculated T [place] -33 degrees MUSE SYSTEM INTERPRETATION Sinus rhythm [...] MD URINE ORDERABLES [facility] [place] [address] * (ABNORMAL) Urinalysis with reflex Culture (11/02/2023 [...] CENTER LABORATORY Leukocytes, Urine Dipstick Small(A) Negative [facility] Appearance, Urine Dipstick Cloudy(A) Clear [facility] Specific [place] Urine Automated >=1.030(A) 1.005 - 1.030 [facility] Color, Urine Dipstick Dark Yellow Yellow [facility] Reflex to Culture Yes [facility] Clean Catch Urine 11/02/2023 11:40 AM EDT 11/02/2023 12:04 PM EDT Narrative Resulting Agency Comment Spec In Lab Rosa Hugo MD URINE ORDERABLES [facility] [place] [address] * Respiratory Panel PCR (11/02/2023 10:15 AM EDT) Respiratory Panel Source IN STORE REPRESENTATIVE Swab [facility] Respiratory Panel PCR Negative Negative [facility] Comment: Respiratory Panels are performed on the Structure Vision, using multiplexed PCR nucleic acid detection. ??Negative [...] performed using the BioFire Respiratory Panel 2.1 ([employer]) as authorized by the FDA issued Emergency Use Authorization (EUA). This panel also tests for multiple other viral and bacterial pathogens. This assay is intended for In-vitro Diagnostic (IVD) use with nasopharyngeal swabs in viral transport media. The assay is performed based on the instructions for use and additional guidance provided by the FDA. Testing is performed in laboratories within the [facility], each of which is certified under [...] fact sheets at the following FDA website: https://www.fda.gov/medical-devices/qrbvygejykg-aulsthf-4912-zpaaj-63-pmchlgfst- use-a giwvgvdqxkdyb-ryohsus-jpcmfgg/oxoos-bekqtqpdeax-prps Human Metapneumovirus Not Detected Not Detected [facility] [...] GEN ERAL ORDERABLES [facility] [place] [address] * XR Chest One View (11/02/2023 2:51 AM EDT) WORKSTATION ID [id number] RAD Anatomical Region Laterality Modality Chest N/A [...] who have questions please contact the health campground caretaker that requested your imaging first. ? Electronically signed by: Omaira Tran MD, [facility] ([phone]), at 11/02/2023 4:56 AM Narrative 11/02/2023 4:56 [...] patients who have questions please contactthe health campground caretaker that requested your imaging first. Electronically signed by: Omaira Tran MD, [facility]([phone]), at 11/02/2023 4:56 AM Rosa Hugo MD IMG DX ORDERABLES * (ABNORMAL) Differential, Automated (11/02/2023 12:35 AM EDT) Neutrophil % 76.5 % [facility] Neutrophil Absolute 7.69(H) 1.70 - 6.10 x10(3)/mc L [facility] Lymph % 8.3 % [facility] Lymphocytes Abs 0.8(L) 0.9 - 3.2 x10(3)/mc L [facility] Monocyte % 12.9 % [facility] Monocyte Abs 1.3(H) 0.3 - 0.9 x10(3)/mc L [facility] Eos % 1.4 % [facility] [...] Absolute 0.05(H) 0.00 - 0.04 x10(3)/mc L [facility] Blood 11/02/2023 12:3 5 AM EDT 11/02/2023 12:43 AM EDT Narrative Resulting Agency Comment Spec In Lab Qamar Gallardo MD HEMATOLOGY ORDERABLE S [facility] [place] [address] * (ABNORMAL) Hemogram (11/02/2023 12:35 AM EDT) White Blood Cell 10.0(H) 4.0 - 9.5 x10(3)/ L [facility] [...] HEMATOLOGY ORDERABLE S [facility] [place] [address] * (ABNORMAL) Phosphorus (11/02/2023 12:35 AM EDT) Phosphorus 1.6(L) 2.5 - 4.5 mg/dL [facility] Blood 11/02/2023 12:3 5 AM EDT 11/02/2023 12:43 AM EDT Narrative Resulting Agency Comment Spec In Lab Rosa Cornejo MD CHEMISTRY ORDERABLE S Performing Organization Address City/[facility]/ZIP Co de Phone Number [facility] [place] [address] * Magnesium (11/02/2023 12:35 AM EDT) Magnesium 0.87 0.69 - 1.07 mmol/L [facility] Blood 11/02/2023 12:3 5 AM EDT 11/02/2023 12:43 AM EDT Narrative Resulting Agency Comment Spec In Lab Rosa Cornejo MD CHEMISTRY ORDERABLE S Performing Organization Address City/[facility]/ZIP Co de Phone Number [facility] [place] [address] * Basic Metabolic Panel (non-fasting) (11/02/2023 12:35 [...] CHEMISTRY ORDERABLE S [facility] [place] [address] * Blood culture (11/02/2023 12:35 AM EDT) Blood Culture No growth at 5 days. [facility] Blood 11/02/2023 12:3 5 AM EDT 11/02/2023 1:55 AM EDT Comment:#2 site ukn Narrative Resulting Agency Comment Spec In Lab Rosa Hugo MD MICROBIOLOGY - BLO OD ORDERABLES Performing Organization Address City/[facility]/ZIP Co de Phone Number [facility] [place] [address] * Blood culture (11/02/2023 12:15 AM EDT) Blood Culture No growth at 5 days. [facility] Blood 11/02/2023 12:1 5 AM EDT 11/02/2023 1:54 AM EDT Comment:#1site unk Narrative Resulting Agency Comment Spec In Lab Rosa Hugo MD MICROBIOLOGY - BLO OD ORDERABLES Performing Organization Address [facility] Co de Phone Number [facility] [place] [address] * EKG 12 Lead (11/01/2023 10:10 PM EDT) Ventricular rate 139 BPM MUSE SYSTEM Atrial Rate 139 BPM MUSE SYSTEM P-R Interval 168 ms MUSE SYSTEM QRS Duration 84 ms MUSE SYSTEM Q-T Interval 286 ms MUSE SYSTEM QTC Calculated (Bezet) 435 ms MUSE SYSTEM Calculated R [place] -59 degrees MUSE SYSTEM Calculated T [place] -27 degrees MUSE SYSTEM INTERPRETATION Mid-RP tachycardia, [...] interpretation Confirmed by fellow MD Bowen Ashley ([id number]) on 11/04/2023 7:57:50 AM Confirmed by MD aCrrillo Danette ([id number]) on 11/04/2023 4:32:03 PM MUSE SYSTEM 11/01/2023 10:1 0 PM EDT 11/04/2023 4:32 PM EDT Rosa Cornejo MD ECG ORDERABLES MUSE SYSTEM * (ABNORMAL) Hemogram (11/01/2023 10:06 PM EDT) White Blood Cell 10.4(H) 4.0 - 9.5 x10(3)/mc L [facility] Red Blood Cell 4.11 4.00 - 5.21 x10(6)/mc L [facility] Hemoglobin 14.0 11.7 - [...] Platelet 197 145 - 357 x10(3)/mc L [facility] RDW Standard Deviation 54.0(H) 37.0 - 46.0 [facility] RDW coefficient of variation 14.6(H) 11.5 - 14.1 % [facility] Mean Platelet Volume 11.2 7.6 - 12.9 [facility] NRBC% auto 0.0 % [facility] NRBC Absolute 0.000 0.000 - 0.000 x10(3)/mc L [facility] Blood 11/01/2023 10:0 6 PM EDT 11/01/2023 10:22 PM EDT Narrative Resulting Agency Comment Spec In Lab Rosa Hugo MD HEMATOLOGY ORDERAB LES [facility] [place] [id number] * POCT Glucose (11/01/2023 5:59 PM EDT) Glucose, POC 104 65 - 199 mg/dL [facility] Comment: Supplemental ranges: <140 mg/dL before meals <180 mg/dL all other times of the day Blood 11/01/2023 5:59 PM EDT 11/01/2023 5:59 PM EDT oRsa Hugo MD POINT OF CARE TEST ORDERABLES [facility] [place] [address] * POCT Glucose (11/01/2023 5:35 PM EDT) Glucose, POC 85 65 - 199 mg/dL [facility] Comment: Supplemental ranges: <140 mg/dL before meals <180 mg/dL all other times of the day Blood 11/01/2023 5:35 PM EDT 11/01/2023 5:35 PM EDT Rosa Hugo MD POINT OF CARE TEST ORDERABLES [facility] [place] [address] * EKG 12 Lead (11/01/2023 3:22 PM EDT) Ventricular rate 59 BPM MUSE SYSTEM Atrial Rate 59 BPM MUSE SYSTEM P-R Interval 220 ms MUSE SYSTEM QRS Duration 94 ms MUSE SYSTEM Q-T Interval 428 ms MUSE SYSTEM QTC Calculated (Bezet) 423 ms MUSE SYSTEM Calculated P [place] 76 degrees MUSE SYSTEM Calculated R [place] -50 degrees MUSE SYSTEM Calculated T [place] -59 degrees MUSE SYSTEM INTERPRETATION Sinus bradycardia with sinus arrhythmia with 1st degree A-V block Left anterior fascicular block Moderate voltage criteria for LVH, may be normal variant ( R in aVL , [place] product ) Cannot rule out Inferior infarct [...] Modality Other Narrative 11/02/2023 4:57 PM EDT ?[facility] ? Cardiac Catheterization/Intervention Report ? Patient Name: Adin Santos. ? Procedure Date: 11/01/2023 ? A #: [id number] ? Primary Physician: Rosa Dewey I ? Case #: [id number] ? File Name: [id number] ? Catheterization Order Number: [id number] ? [facility] ? Final Report [place], [place] ? Patient Name: ? Adin M. Goguen ?ID#: ?[id number] ? : ?1940 ? Procedure Date: ? [...] designated as ASA Class III. The [facility] clinical ?frailty scale is 4: Vulnerable. [...] was Urgent. The indication for ?the lab analyst visit is ACS greater than [...] ??A premounted ? 3.50 x 15 mm [place] (RADHA) was deployed with a maximum ? [...] ? A premounted 3.50 x 15 mm [place] (RADHA) was deployed ? with a maximum [...] administered prior to arrival in the lab analyst. ?Recommended anti-platelet/anti-thrombotic regimen: ?Continue aspirin 81 mg daily for indefinitely. ?Continue clopidogrel 75 mg daily for 12 months then stop. ?These recommendations are made at the time of the intervention. Patient ?and provider preferences or a changing clinical situation may require ?modification of this regimen. Consult [facility] Interventional Cardiology for ?questions. [...] Procedure Note Rosa Dewey MD - 12/12/2023 [facility] Cardiac Catheterization/Intervention Report Patient Name: Adin Santos Procedure Date: 11/01/2023 A #: [id number] Primary Physician: Rosa Dewey I Case #: [id number] File Name: [id number] Catheterization Order Number: [id number] [facility] FinalReport [place], [place] Patient Name: Adin Santos ID#:[id number] :1940 Procedure Date: November 01, 2023 Case [...] procedure was Urgent. The indicationfor the lab analyst visit is ACS greater than [...] 14 atmospheres. Apremounted 3.50 x 15 mm [place] (RADHA) was deployed with amaximum inflation pressure [...] The lesion was predilated with a 3.00mm [id number] MM balloon with a maximum inflation pressure of 14atmospheres. A premounted 3.50 x 15 mm [place] (RADHA) wasdeployed with a maximum inflation pressure [...] administered prior to arrival in the lab analyst. Recommended anti-platelet/anti-thrombotic regimen: Continue aspirin 81 mg daily for indefinitely. Continue clopidogrel 75 mg daily for 12 months then stop. These recommendations are made at the time of the intervention.Patient and provider preferences or a changing clinical situation mayrequire modification of this regimen. Consult [facility] Interventional Cardiologyfor questions. The [...] POCT Glucose (11/01/2023 7:06 AM EDT) Pathologist [facility] Glucose, POC 93 65 - 199 mg/dL [facility] Comment: Supplemental ranges: <140 mg/dL before meals <180 mg/dL all other times of the day Blood 11/01/2023 7:06 AM EDT 11/01/2023 7:06 AM EDT Jean Laboy MD POINT OF CARE TEST O RDERABLES [facility] [place] [address] * (ABNORMAL) Differential, Automated (11/01/2023 3:09 AM EDT) Neutrophil % 63.9 % [facility] Neutrophil Absolute 5.54 1.70 - 6.10 x10(3)/mc L [facility] Lymph % 20.0 % [facility] Lymphocytes Abs 1.7 0.9 - 3.2 x10(3)/mc L [facility] Monocyte % 11.9 % [facility] Monocyte Abs 1.0(H) 0.3 - 0.9 x10(3)/ L [facility] Eos % 3.2 % [facility] [...] Immature Gran Absolute 0.04 0.00 - 0.04 x10(3)/[facility] Blood 11/01/2023 3:09 AM EDT 11/01/2023 3:29 AM EDT Narrative Resulting Agency Comment Spec In Lab Qamar Gallardo MD HEMATOLOGY ORDERABLE S [facility] [place] [address] * (ABNORMAL) Hemogram (11/01/2023 3:09 AM EDT) White Blood Cell 8.7 4.0 - 9.5 x10(3)/ L [facility] Red Blood Cell 3.72(L) 4.00 - 5.21 x10(6)/[facility] Hemoglobin 12.5 11.7 - 15.5 [...] HEMATOLOGY ORDERABLE S [facility] [place] [address] * Phosphorus (11/01/2023 3:09 AM EDT) Phosphorus 2.5 2.5 - 4.5 mg/dL [facility] Blood 11/01/2023 3:09 AM EDT 11/01/2023 3:29 AM EDT Narrative Resulting Agency Comment Spec In Lab Rosa Cornejo MD CHEMISTRY ORDERABLE S [facility] [place] [address] * Magnesium (11/01/2023 3:09 AM EDT) Magnesium 0.82 0.69 - 1.07 mmol/L [facility] Blood 11/01/2023 3:09 AM EDT 11/01/2023 3:29 AM EDT Narrative Resulting Agency Comment Spec In Lab Rosa Cornejo MD CHEMISTRY ORDERABLE S [facility] [place] [address] * (ABNORMAL) Basic Metabolic Panel (non-fasting) (11/01/2023 [...] MD CHEMISTRY ORDERABLE S Performing Organization Address City/[facility]/ZIP Co de Phone Number [facility] [place] [address] * (ABNORMAL) Troponin (10/31/2023 2:46 PM EDT) [...] value can be found in the [facility] Laboratory Test Catalog Troponin - [facility] Laboratory Test Catalog Reference: Fourth [place]aver Definition of Myocardial Infarction. Journal of the [place] [employer] 2018;72:0217-3767 Blood 10/31/2023 2:46 PM EDT 10/31/2023 2:55 PM EDT Narrative Resulting Agency Comment Spec In Lab Jean Laboy MD CHEMISTRY ORDERABLES Performing Organization Address City/[facility]/ZIP Co de Phone Number [facility] [place] [address] * EKG 12 Lead (10/31/2023 1:07 PM EDT) Ventricular rate 54 BPM MUSE SYSTEM Atrial Rate 54 BPM MUSE SYSTEM P-R Interval 218 ms MUSE SYSTEM QRS Duration 92 ms MUSE SYSTEM Q-T Interval 540 ms MUSE SYSTEM QTC Calculated (Bezet) 512 ms MUSE SYSTEM Calculated P [place] 85 degrees MUSE SYSTEM Calculated R [place] -44 degrees MUSE SYSTEM Calculated T [place] -69 degrees MUSE SYSTEM INTERPRETATION Sinus bradycardia [...] (ABNORMAL) Troponin (10/31/2023 11:37 AM EDT) Pathologist [facility] Troponin-T, High Sensitivity 580(H) <=14 ng/L [facility] [...] value can be found in the [facility] Laboratory Test Catalog Troponin - [facility] Laboratory Test Catalog Reference: Fourth [place] Definition of Myocardial Infarction. Journal of the [employer] 2018;72:0222-7317 Blood 10/31/2023 11:3 7 AM EDT 10/31/2023 11:50 AM EDT Narrative Resulting Agency Comment Spec In Lab Rosa Cornejo MD CHEMISTRY ORDERABLE S [facility] [place] [address] * ECHO COMPLETE (10/31/2023 8:52 AM EDT) Anatomical Region Laterality Modality Cardiac Other 10/31/2023 7:57 AM EDT Narrative 10/31/2023 9:45 AM EDT [address] [place] [address] ? Echocardiogram Report Name: TOM ADIN Dorene ? Study Date: 10/31/2023 07:57 AMBP: 106/76 mmHg ? Patient Location: [address] : 1940 ? Height: 163 cm ? Account: [id number] Age: 83 yrs ? Weight: 76 kg [...] is no prior echocardiogram for comparison. Procedure Complete-26533. Satisfactory quality. There is sinus bradycardia. Left [...] Note Edgard Wang MD - 10/31/2023 [address] [place] [address] Echocardiogram Report Name: ADIN SANTOS Study Date: 407:57 AMBP: 106/76 mmHg Patient Location: [address] : 1940 Height: 163 cm Account: [id number] Age: 83 yrs Weight: 76 kg Gender: [...] is no prior echocardiogram for comparison. Procedure Complete-94907. Satisfactory quality. There is sinus bradycardia. Left [...] * (ABNORMAL) Troponin (10/31/2023 8:51 AM EDT) [facility] Troponin-T, High Sensitivity 571(H) <=14 ng/L [facility] [...] value can be found in the [facility] Laboratory Test Catalog Troponin - [facility] Laboratory Test Catalog Reference: Fourth [place] Definition of Myocardial Infarction. Journal of the [employer] 2018;72:1245-7101 Blood 10/31/2023 8:51 AM EDT 10/31/2023 9:12 AM EDT Narrative Resulting Agency Comment Spec In Lab Rosa Cornejo MD CHEMISTRY ORDERABLE S Performing Organization Address [facility] Co de Phone Number [facility] [place] [address] * CARDIAC CATHETERIZATION (10/31/2023 8:10 AM EDT) Anatomical Region Laterality Modality Other Narrative 11/07/2023 9:42 AM EDT ?[facility] ? Cardiac Catheterization/Intervention Report ? Patient Name: Adin Santos ? Procedure Date: 10/30/2023 ? A #: [id number] ? Primary Physician: Rosa Dewey I ? Case #: [id number] ? File Name: [id number] ? Catheterization Order Number: [id number] ? [facility] ? Final Report [place], [place] ? Patient Name: ? Adin M. Goguen ?ID#: ?[id number] ? : ?1940 ? Procedure Date: ? [...] designated as ASA Class III. The [facility] clinical frailty scale ?is 5: Mildly [...] was Emergent. The indication for ?the lab analyst visit is ACS less than [...] A premounted 4.00 x 38 mm [place] (RADHA) was deployed ? with a maximum [...] administered prior to arrival in the lab analyst. ?Recommended anti-platelet/anti-thrombotic regimen: ?Continue aspirin 81 mg daily for 12 months then stop. ?Continue clopidogrel 75 mg daily for indefinitely. ?These recommendations are made at the time of the intervention. Patient ?and provider preferences or a changing clinical situation may require ?modification of this regimen. Consult [facility] Interventional Cardiology for ?questions. [...] Procedure Note Rosa Dewey MD - 12/05/2023 [facility] Cardiac Catheterization/Intervention Report Patient Name: Adin Santos Procedure Date: 10/30/2023 A #: [id number] Primary Physician: Rosa Dewey I Case #: [id number] File Name: [id number] Catheterization Order Number: [id number] [facility] FinalReport [place], [place] Patient Name: Adin Santos ID#:[id number] :1940 Procedure Date: October 30, 2023 Case [...] designated as ASA Class III. The [facility] clinical frailtyscale is 5: Mildly Frail. Diagnostic Tests: Electrocardiography: EKG was assessed by ECG. EKG was Abnormal. EKG showed STDeviation >= 0.5 mm, other abnormality and dynamic EKG changes. Medications Prior to Procedure: Aspirin, Angiotensin II Receptor Rodrick, Beta Rodrick andStatin. Indications for Diagnostic Cath: The priority of the diagnostic procedure was Emergent. Theindication for the lab analyst visit is ACS less than [...] The priority for the procedure was Emergent.The [facility] indication for the procedure was STEMI-Immediate [...] A premounted 4.00 x 38 mm [place] (RADHA) wasdeployed with a maximum inflation pressure [...] administered prior to arrival in the lab analyst. Recommended anti-platelet/anti-thrombotic regimen: Continue aspirin 81 mg daily for 12 months then stop. Continue clopidogrel 75 mg daily for indefinitely. These recommendations are made at the time of the intervention.Patient and provider preferences or a changing clinical situation mayrequire modification of this regimen. Consult [facility] Interventional Cardiologyfor questions. Conclusions: [...] * (ABNORMAL) Troponin (10/31/2023 4:21 AM EDT) [facility] Troponin-T, High Sensitivity 457(H) <=14 ng/L [facility] [...] value can be found in the [facility] Laboratory Test Catalog Troponin - [facility] Laboratory Test Catalog Reference: Fourth [place]aver Definition of Myocardial Infarction. Journal of the [employer] 2018;72:0151-1245 Blood 10/31/2023 4:21 AM EDT 10/31/2023 4:30 AM EDT Narrative Resulting Agency Comment Spec In Lab Rosa Cornejo MD CHEMISTRY ORDERABLE S Performing Organization Address City/State/[facility] Co de Phone Number [facility] [place] [address] * (ABNORMAL) Differential, Automated (10/31/2023 3:05 AM EDT) Neutrophil % 71.7 % [facility] Neutrophil Absolute 8.21(H) 1.70 - 6.10 x10(3)/mc L [facility] Lymph % 16.9 % [facility] Lymphocytes Abs 1.9 0.9 - 3.2 x10(3)/mc L [facility] Monocyte % 9.4 % [facility] Monocyte Abs 1.1(H) 0.3 - 0.9 x10(3)/mc L [facility] Eos % 1.3 % [facility] [...] HEMATOLOGY ORDERABLE S [facility] [place] [address] * (ABNORMAL) Hemogram (10/31/2023 3:05 AM EDT) White Blood Cell 11.5(H) 4.0 - 9.5 x10(3)/ L [facility] Red Blood Cell 3.75(L) 4.00 - 5.21 x10(6)/mc L [facility] Hemoglobin 12.6 [...] Platelet 206 145 - 357 x10(3)/mc L [facility] RDW Standard Deviation 53.4(H) 37.0 - 46.0 fL [facility] RDW coefficient of variation 14.6(H) 11.5 - 14.1 % [facility] Mean Platelet Volume 11.1 7.6 - 12.9 fL [facility] NRBC% auto 0.0 % [facility] NRBC Absolute 0.000 0.000 - 0.000 x10(3)/mc L [facility] Blood 10/31/2023 3:05 AM EDT 10/31/2023 3:13 AM EDT Narrative Resulting Agency Comment Spec In Lab Qamar Gallardo MD HEMATOLOGY ORDERABLE S Performing Organization Address [facility] de Phone Number [facility] [place] [address] * (ABNORMAL) APTT (10/31/2023 3:05 AM EDT) [...] HEMATOLOGY ORDERABL ES Performing Organization Address [facility] de Phone Number [facility] [place] [address] * (ABNORMAL) Prothrombin Time (10/31/2023 3:05 AM [...] HEMATOLOGY ORDERABL ES [facility] [place] [address] * (ABNORMAL) Differential, Automated (10/31/2023 1:37 AM EDT) Neutrophil % 71.1 % [facility] Neutrophil Absolute 7.53(H) 1.70 - 6.10 x10(3)/mc L [facility] Lymph % 18.0 % [facility] Lymphocytes Abs 1.9 0.9 - 3.2 x10(3)/ L [facility] Monocyte % 8.7 % [facility] Monocyte Abs 0.9 0.3 - 0.9 x10(3)/mc L [facility] Eos % 1.6 % [facility] [...] HEMATOLOGY ORDERABLE S [facility] [place] [address] * (ABNORMAL) Hemogram (10/31/2023 1:37 AM EDT) [...] HEMATOLOGY ORDERABLE S [facility] [place] [address] * Phosphorus (10/31/2023 1:37 AM EDT) Phosphorus 3.2 2.5 - 4.5 mg/dL [facility] Blood 10/31/2023 1:37 AM EDT 10/31/2023 1:46 AM EDT Narrative Resulting Agency Comment Spec In Lab Rosa Cornejo MD CHEMISTRY ORDERABLE S Performing Organization Address City/[facility]/ZIP Co de Phone Number [facility] [place] [address] * Magnesium (10/31/2023 1:37 AM EDT) Magnesium 0.83 0.69 - 1.07 mmol/L [facility] Blood 10/31/2023 1:37 AM EDT 10/31/2023 1:46 AM EDT Narrative Resulting Agency Comment Spec In Lab Rosa Cornejo MD CHEMISTRY ORDERABLE S Performing Organization Address City/[facility]/ZIP Co de Phone Number [facility] [place] [address] * Basic Metabolic Panel (non-fasting) (10/31/2023 1:37 AM EDT) Glucose 114 65 - 199 mg/dL [facility] [...] CHEMISTRY ORDERABLE S [facility] [place] [address] * (ABNORMAL) Troponin (10/31/2023 1:37 AM EDT) [...] value can be found in the [facility] Laboratory Test Catalog Troponin - [facility] Test Catalog Reference: Fourth [place] Definition of Myocardial Infarction. Journal of the [employer] 2018;72:2707-4570 Blood 10/31/2023 1:37 AM EDT 10/31/2023 1:46 AM EDT Narrative Resulting Agency Comment Spec In Lab Rosa Cornejo MD CHEMISTRY ORDERABLE S Performing Organization Address City/[facility]/[place] [address] * EKG 12 Lead (10/31/2023 1:20 AM EDT) Ventricular rate 52 BPM MUSE SYSTEM Atrial Rate 52 BPM MUSE SYSTEM P-R Interval 224 ms MUSE SYSTEM QRS Duration 108 ms MUSE SYSTEM Q-T Interval 544 ms MUSE SYSTEM QTC Calculated (Bezet) 505 ms MUSE SYSTEM Calculated P [place] 90 degrees MUSE SYSTEM Calculated R [place] -57 degrees MUSE SYSTEM Calculated T [place] -63 degrees MUSE SYSTEM INTERPRETATION Sinus bradycardia [...] (Bezet) 497 ms MUSE SYSTEM Calculated P [place] 75 degrees MUSE SYSTEM Calculated R [place] -53 degrees MUSE SYSTEM Calculated T [place] -57 degrees MUSE SYSTEM INTERPRETATION Sinus bradycardia with 1st degree A-V block Left anterior fascicular block Moderate voltage criteria for LVH, may be normal variant ( R in aVL , [place] product ) T wave abnormality, consider inferior [...] View (10/30/2023 10:10 PM EDT) WORKSTATION ID [id number] DH RAD Anatomical Region Laterality Modality Chest [...] and low lung volumes. Findings similar to system specialist radiograph from CT 10/30/2023. Thank you for letting us participate in the care of this patient. ??If you are a health care provider and have any questions regarding this report, please contact the number below. ??For patients who have questions please contact the health campground caretaker that requested your imaging first. ? Electronically signed by: Wilson Mccartney MD, [facility] ([phone]), at 10/30/2023 10:32 PM Narrative 10/30/2023 10:32 [...] and low lung volumes. Findings similar to system specialist radiograph from CT 10/30/2023. Thank you for letting us participate in the care of this patient. If youare a health care provider and have any questions regarding this report,please contact the number below. For patients who have questions please contactthe health campground caretaker that requested your imaging first. Rosa Cornejo MD IMG DX ORDERABLES * Green Tube HOLD (10/30/2023 10:05 PM EDT) [facility] Green Hold Sample in lab. [facility] Blood Venous Draw / Unknown 10/30/2023 10:05 PM EDT 10/30/2023 10:13 PM EDT Qamar Gallardo MD CHEMISTRY ORDERABLES [facility] [place] [address] * (ABNORMAL) Differential, Automated (10/30/2023 10:05 PM EDT) Pathologist [facility] Neutrophil % 76.6 % [facility] Neutrophil Absolute 6.94(H) 1.70 - 6.10 x10(3)/mc L [facility] Lymph % 15.4 % [facility] Lymphocytes Abs 1.4 0.9 - 3.2 x10(3)/mc L [facility] Monocyte % 6.1 % [facility] Monocyte Abs 0.6 0.3 - 0.9 x10(3)/mc L [facility] Eos % 1.1 % [facility] de Phone Number [facility] [place] [address] * (ABNORMAL) Hemogram (10/30/2023 10:05 PM EDT) [...] Platelet 211 145 - 357 x10(3)/mc L [facility] [...] MD HEMATOLOGY ORDERABLE S Performing Organization Address City/[facility]/ZIP Co de Phone Number [facility] [place] [address] * Hemoglobin A1c (10/30/2023 10:05 PM EDT) [...] [id number] Estimated Average Glucose See note mg/dL [facility] Comment: Estimated Average Glucose not appropriate for patients over 70 years of age. Blood 10/30/2023 10:0 5 PM EDT 10/30/2023 10:12 PM EDT Narrative Resulting Agency Comment Spec In Lab Rosa Cornejo MD CHEMISTRY ORDERABLE S [facility] [place] [address] * Lipid Panel (Reflex Direct LDL) (10/30/2023 10:05 PM EDT) [facility] Cholesterol, Total 218 mg/dL D[facility] Comment: Desirable: ? <200 mg/dL Borderline High: 200-239 mg/dL Higher: ?>cb=028 mg/dL Triglyceride 46 mg/dL [facility] Comment: Normal: ?<150 mg/dL Borderline High: 150-199 mg/dL High: ?200-499 mg/dL Very High: ? >xt=028 mg/dL HDL Cholesterol 64 mg/dL [facility] Comment: Females: High Risk: <50 mg/dL Males: High Risk: <40 mg/dL LDL Cholesterol 145 mg/dL [facility] Comment: Desirable: ? <100 mg/dL Above Desirable: 100-129 mg/dL Borderline High: 130-159 mg/dL High: ?160-189 mg/dL Very High: ? >ba=645 mg/dL Lipid Interpretation See Note [facility] [...] individuals with atherosclerotic cardiovascular disease (ASCVD)or LDL >jz=204 mg/dL, use a high-intensity statin (40-80 mg [...] ORDERABLE S Performing Organization Address [facility] Co de Phone Number [facility] [place] [address] * TSH Matteson (10/30/2023 10:05 PM EDT) Thyroid Stimulating Hormone 3.35 0.27 - 4.20 mcIU/mL [facility] Comment: Reference Interval (mcIU/mL): Females: ??First Trimester: 0.23-3.88 ??Second Trimester: 0.22-3.90 ??Third Trimester: 0.44-4.66 Blood 10/30/2023 10:0 5 PM EDT 10/30/2023 10:12 PM EDT Narrative Resulting Agency Comment Spec In Lab Rosa Cornejo MD CHEMISTRY ORDERABLE S Performing Organization Address [facility]/ZIP Co de Phone Number [facility] [place] [address] * pro-Brain Natriuretic Peptide (10/30/2023 10:05 PM EDT) NT-proBNP 375 <=449 pg/mL [facility] Blood 10/30/2023 10:0 5 PM EDT 10/30/2023 10:12 PM EDT Narrative Resulting Agency Comment Spec In Lab Rosa Cornejo MD CHEMISTRY ORDERABLE S [facility] [place] [address] * (ABNORMAL) Comprehensive metabolic panel (non-fasting) (10/30/2023 10:05 PM EDT) Pathologist [facility] Glucose 121 65 - 199 mg/dL [facility] [...] MD CHEMISTRY ORDERABLE S Performing Organization Address City/[facility]/ZIP Co de Phone Number [facility] [place] [address] * Phosphorus (10/30/2023 10:05 PM EDT) Phosphorus 3.3 2.5 - 4.5 mg/dL [facility] Blood 10/30/2023 10:0 5 PM EDT 10/30/2023 10:12 PM EDT Narrative Resulting Agency Comment Spec In Lab Rosa Cornejo MD CHEMISTRY ORDERABLE S [facility] [place] [address] * Magnesium (10/30/2023 10:05 PM EDT) Magnesium 0.86 0.69 - 1.07 mmol/L [facility] Blood 10/30/2023 10:0 5 PM EDT 10/30/2023 10:12 PM EDT Narrative Resulting Agency Comment Spec In Lab Rosa Cornejo MD CHEMISTRY ORDERABLE S Performing Organization Address City/[facility]/ZIP Co de Phone Number [facility] [place] [address] * (ABNORMAL) Troponin (10/30/2023 10:05 PM EDT) [...] value can be found in the [facility] Laboratory Test Catalog Troponin - [facility] Laboratory Test Catalog Reference: Fourth [place] Definition of Myocardial Infarction. Journal of the [employer] College [employer] 2018;72:5005-9204 Blood 10/30/2023 10:0 5 PM EDT 10/30/2023 10:12 PM EDT Narrative Resulting Agency Comment Spec In Lab Rosa Cornejo MD CHEMISTRY ORDERABLE S Performing Organization Address City/[facility]/ZIP Co de Phone Number [facility] [place] [address] * EKG 12 Lead (10/30/2023 8:21 PM EDT) Ventricular rate 49 BPM MUSE SYSTEM Atrial Rate 49 BPM MUSE SYSTEM P-R Interval 230 ms MUSE SYSTEM QRS Duration 96 ms MUSE SYSTEM Q-T Interval 526 ms MUSE SYSTEM QTC Calculated (Bezet) 475 ms MUSE SYSTEM Calculated P [place] 98 degrees MUSE SYSTEM Calculated R [place] -48 degrees MUSE SYSTEM Calculated T [place] -51 degrees MUSE SYSTEM INTERPRETATION Sinus bradycardia [...] - Reason: Transfer to a Procedural area)1548 ([facility] Unhold - Provider: Admin Adt) fentaNYL [...] - Reason: Transfer to a Procedural area)1548 ([facility] Unhold - Provider: Admin Adt) midazolam [...] documented as of this encounter Care Teams Sole Layer Hand Relationship Specialty Start Date End Date Rosei Mathews MD [address] [place] [address] PCP - General Family Medicine 11/25/17 11/23/23 documented as of this encounter
--- OUTSIDE RECORDS SUMMARY | 2024-02-29 10:16 | XMS_ITS | Encounter Summary ---
Author Organization [facility] Address [facility] [place] [address] Care Team Providers Care Health Care Attorney Name Role Phone Rosie Mathews MD Primary Care Provider [phone] Encounter Details Date Type Department Care Team (Late st Contact Info) Description 10/30/2023 [place] [address] Jose Lee MD [facility] [place] [address] Social History Tobacco Use Types Packs/Day Years [...] in the patient condition. Jose Lee MD Ammunition Officer documented in this encounter Plan of Treatment Upcoming Encounters Date Type Department Care Team (Late st Contact Info) Description 03/29/2024 11:20 AM EDT Office Visit Cardiology at [address] [place] [address] Izaiah Meyer MD [facility] [place] [address] documented as of this encounter Visit Diagnoses Not on filedocumented in this encounter Care Teams Health Care Attorney Relationship Specialty Start Date End Date Rosie Mathews MD [address] [place] [address] PCP - General Family Medicine 11/25/17 11/23/23 documented as of this encounter
--- OUTSIDE RECORDS SUMMARY | 2024-02-29 10:17 | XMS_ITS | Encounter Summary ---
Author Organization [facility] Address [facility] [place] [address] Care Team Providers Care Grocery Buyer Name Role Phone Rosie Mathews MD Primary Care Provider [phone] Encounter Details Date Type Department Care Team (Late st Contact Info) Description 10/30/2023 [place] [address] Jose Lee MD [facility] [place] [address] Social History Tobacco Use Types Packs/Day Years Used Date Smoking Tobacco: Former Smokeless Tobacco: Never Alcohol Use Standard Drinks/Week Comments Not Currently 0 (1 standard drink = 0.6 oz pur e alcohol) [facility] Utilities Answer Date Recorded In the past 12 months has th e [employer], gas, oil, or water [employer] threatened to shut off services in [...] 11:20 AM EDT Office Visit Cardiology at [address] [address] Izaiah Meyer MD [facility] [place] [address] documented as of this encounter Visit Diagnoses Not on filedocumented in this encounter Additional Health Concerns Infection Onset Date Last Indicated Resolved Time Rule Out Respiratory 11/02/2023 11/02/2023 024 12:22 PM EDT Rule Out COVID-19 11/02/2023 11/02/2023 11/02/2023 12:22 PM EDT documented as of this encounter Care Teams Grocery Buyer Relationship Specialty Start Date End Date Rosie Mathews MD [address] [place] [address] PCP - General Family Medicine 11/25/17 11/23/23 documented as of this encounter
--- OUTSIDE RECORDS SUMMARY | 2024-02-29 10:17 | XMS_ITS | Encounter Summary ---
Author Organization [facility] Address [address] [place] [address] Care Team Providers Care Sulfide Head Operator Name Role Phone Kirsten Bateman MD Primary Care Provider [phone] Encounter Details Date Type Department Care Team (Late st Contact Info) Description 01/14/2010 Abstract Used for ABSTRACTING Data [phone] Kirsten Bateman MD [address] [place] [address] Social History Tobacco Use Types [...] OIL/COCONUT OIL (FATTY ACID BASE MISC) by [facility].(Non-Drug; Combo Route) route. EPA CYANOCOBALAMIN (VITAMIN B-12 ORAL) Take by mouth. ASCORBIC ACID (VITAMIN C ORAL) Take by mouth. VITAMIN E ACETATE (VITAMIN E ORAL) Take by mouth. ASPIRIN ORAL Take by mouth. AMITRIPTYLINE HCL (AMITRIPTYLINE ORAL) Take by mouth. ATENOLOL ORAL Take by mouth. SIMVASTATIN ORAL Take by mouth. added in this encounter Care Teams Sulfide Head Operator Relationship Specialty Start Date End Date Kirsten Bateman MD [address] [place] [phone] PCP - General 01/13/10 documented as of this encounter
--- OUTSIDE RECORDS SUMMARY | 2024-02-29 10:17 | XMS_ITS | Referral Summary ---
Author Organization [facility] Address [address] [place] [address] Care Team Providers Care Carpenter Railcar Name Role Phone Kirsten Bateman MD Primary Care Provider [phone] Allergies Active Allergy Reactions Criticality Noted Date [...] of Treatment Not on file Care Teams Carpenter Railcar Relationship Specialty Start Date End Date Kirsten Bateman MD [address] [place] [address] [facility] - General 01/13/10
--- OUTSIDE RECORDS SUMMARY | 2024-02-29 10:17 | XMS_ITS | Encounter Summary ---
Author Organization [facility] Address [facility] [place] [address] Care Team Providers Care Theatrical Variety Agent Name Role Phone Rosie Mathews MD Primary Care Provider [phone] Reason for Visit * Consultation (Routine) - Closed Specialty Diagnoses / Procedures Referred By John hunt Referred To Contact Audiology Diagnoses Hearing assessment and treatment options Karson John MD [address] [place] [address] [facility] [address] [place] [phone] Referral ID Status Reason Start Date Expiration Date V isits Requested Visits Authorized [id number] Closed Consult, Test & Treat Connection Center 11/22/2017 11/22/2018 1 1 Encounter Details Date Type Department Care Team (Latest Contact Info) Description 11/30/2017 3:15 PM EDT Office Visit Audiology at [address] [address] Georgette Onofre AUD [facility] [place] [address] Sensorineural hearing loss, bilateral; Bilateral [...] Ill in-the-ear hearingaids nine years ago in [place], [place]. She stated she continues to experience [...] tone audiogram. SNR loss is the increased xrdowv-or-jcmob ratio required by an individual to understand [...] not hesitate to contact this Section at [phone] if there are questions regarding this report or its recommendations. Romeo Becker [place] [id number] Attachment: audiogram CC: MD Karson Loo MD Laurmarco a Catherine Edvinjonatanjouse [facility] [address] [place] [phone] documented in this encounter Plan of Treatment Upcoming Encounters Date Type Department Care Team (Late st Contact Info) Description 03/29/2024 11:20 AM EDT Office Visit Cardiology at [address] [place] [address] Izaiah Meyer MD [facility] [place] [address] documented as of this encounter Procedures Procedure [...] tinnitus documented in this encounter Care Teams Theatrical Variety Agent Relationship Specialty Start Date End Date Rosie Mathews MD [address] [place] [address] PCP - General Family Medicine 11/25/17 11/23/23 documented as of this encounter
--- OUTSIDE RECORDS SUMMARY | 2024-02-29 10:17 | XMS_ITS | Encounter Summary ---
Author Organization [facility] Address [address] [place] [address] Care Team Providers Care Furnace Cleaner Name Role Phone Kirsten Bateman MD Primary Care Provider Reason for Visit * Reason Comments Hearing Loss tinnitus Encounter Details Date Type Department Care Team (Latest Contact Info) Description 01/15/2010 10:10 EDT Office Visit [address] [address] Unknown, ProviderMD Ray Farooq MD [address] [place] [address] [address] Sensorineural hearing loss, bilateral; Subjective [...] Ray Farooq MD - 01/28/2010 1108 EDT [facility] PROGRESS/FOLLOWUP NOTE - 01/15/2010 CHIEF COMPLAINT: [...] Farooq MD - Ray Farooq MD - [facility] Job ID: SM Doc ID: [id number] Ext Doc ID: [id number] cc: Kirsten Btaeman MD * Ray Farooq MD - 01/15/2010 1017 EDT This office note has been dictated. documented in this encounter Miscellaneous Notes * Scanned Note-Null - Inpatient, Physician - 01/16/2010 1648 EDT documented in this encounter Plan of Treatment Not on file documented as of this encounter Visit Diagnoses Diagnosis Sensorineural hearing loss, bilateral Subjective tinnitus documented in this encounter Care Teams Furnace Cleaner Relationship Specialty Start Date End Date Kirsten Bateman MD [address] [place] [address] PCP - General 01/13/10 documented as of this encounter
--- OUTSIDE RECORDS SUMMARY | 2024-02-29 10:17 | XMS_ITS | Encounter Summary ---
Author Organization [facility] Address [address] [place] [address] Care Team Providers Care Delivery Man Name Role Phone Unavailable Primary Care Provider Unavailabl e Encounter Details Date Type Department Care Team (Late st Contact Info) Description 01/10/2008 Before PRISM Converted Visit (Maple) [facility] - Maple conversion [address] [place] [address] Ray Farooq MD [address] [place] [address] Social History Tobacco Use Types Packs/Day Years Used Date Smoking Tobacco: Never Assessed Sex and Gender Information Value Date Recorded Sex Assigned at Not on file Gender Identity Not on file Sexual Orientation Not on file documented as of this encounter Consult Notes * Ray Farooq MD - 03/21/2009 5699 EDT [facility] CONS[facility]ATION - 01/10/2008 Kirsten Bateman MD [facility] [address] [place] [address] Bateman: Chief complaint: Hearing loss. History of present illness: Johgl[age]zljdj-mbir-old female with along history of bilateral hearing [...] aspirin, vitamin E, C, B12, B125 complex, [place], EPA fatty acid, coral calcium complex, potassium chloride, Diovan, and hormone essentials. She has drug allergies to cortisone, Percocet, and hydrocodone. Family history is significant for cancer. Social history: The patient is a nonsmoker, nondrinker. She lives in [place]. Review of systems is significant for allergies, [...] Tosin Farooq MD - [facility] Job ID: [id number] Doc ID: [id number] cc: Kirsten Bateman MD cc: Kirsten Bateman MD documented in this encounter Plan of Treatment Not on file documented as of this encounter Visit Diagnoses Not on filedocumented in this encounter
--- OUTSIDE RECORDS SUMMARY | 2024-02-29 10:17 | XMS_ITS | Encounter Summary ---
Author Organization [facility] Address [facility] [place] [address] Care Team Providers Care Soapstoner Name Role Phone Rosie Mathews MD Primary Care Provider [phone] Reason for Visit * Reason Comments Skin Lesion * Consultation (Routine) - Closed Specialty Diagnoses / Procedures Referred By John hunt Referred To Contact Dermatology Diagnoses facial skin lesion Procedures pt would like to be seen PRADEEP Rosie Mathews MD [address] [place] [address] [facility] Dermatology [address] [place] [address] Referral ID Status Reason Start Date Expiration Date V isits Requested Visits Authorized [id number] Closed Consult, Test & Treat Connection Center 10/25/2017 10/25/2018 1 1 Encounter Details Date Type Department Care Team (Late st Contact Info) Description 11/25/2017 4:30 PM EDT Office Visit Dermatology at [facility] [address] [place] [address] Call, Radu Go MD [facility] [address] [address] Seborrheic keratosis; Fibrous papule of [...] by Radu Tom MD Resident in Dermatology [facility] Patient seen in conjunction with staff manufacturing intern: Terri Hale MD Section of Dermatology [facility] * Terri Hale MD - 11/25/2017 4:30 [...] 11:20 AM EDT Office Visit Cardiology at [address] [address] Izaiah Meyer MD [facility] [place] [address] documented as of this encounter Visit Diagnoses Diagnosis Seborrheic keratosis Other seborrheic keratosis Fibrous papule of nose Benign neoplasm of skin of other and unspecified parts of face Skin tags, multiple acquired documented in this encounter Care Teams Soapstoner Relationship Specialty Start Date End Date Rosie Mathews MD [address] [place] [address] PCP - General Family Medicine 11/25/17 11/23/23 documented as of this encounter
--- OUTSIDE RECORDS SUMMARY | 2024-02-29 10:17 | XMS_ITS | Encounter Summary ---
Author Organization [facility] Address [address] [place] [address] Care Team Providers Care Photocopying Machine Operator Name Role Phone Kirsten Bateman MD Primary Care Provider [phone] Encounter Details Date Type Department Care Team (Late st Contact Info) Description 01/27/2021 Lab Requisition [facility] Pathology & Laboratory Medicine - [facility] [address] [place] [address] Outr Resulting Lab, Provider Social History Tobacco [...] Resulting Lab MICROBIOLOGY - GENERAL ORDERABLES [facility] [address] [place] [address] * COVID-19 TESTING (01/26/2021 16:45 EDT) COVID-19 rt-PCR Result Negative Negative 01/28/2021 13:[address] [facility] Comment: This test has [...] developed and its performance characteristics determined by [facility]. It has not been cleared [...] testing. This test is based on the [facility] COVID-19 Emergency Use Authorization (EUA) assay, with minor modification as defined by the FDA Performed on the [employer] Healtho 7 Pro RT-PCR System. Performing Lab [facility] Lab 01/28/2021 13:[address] [facility] Swab 01/26/2021 16:4 5 EDT 01/27/2021 15:46 EDT Provider Outr Resulting Lab MICROBIOLOGY - GENERAL ORDERABLES [facility] [address] [place] [address] documented in this encounter Visit Diagnoses Not on filedocumented in this encounter Care Teams Photocopying Machine Operator Relationship Specialty Start Date End Date Kirsten Bateman MD [address] [place] [address] PCP - General 01/13/10 documented as of this encounter
--- OUTSIDE RECORDS SUMMARY | 2024-02-29 10:17 | XMS_ITS | Encounter Summary ---
Author Organization [facility] Address [facility] [place] [address] Care Team Providers Care Controls Project Engineer Name Role Phone Rosie Mathews MD Primary Care Provider [phone] Encounter Details Date Type Department Care Team (Late st Contact Info) Description 10/30/2023 External Results Transfer Center [facility] [place] [address] Social History Tobacco Use Types Packs/Day Years Used Date Smoking Tobacco: Former Smokeless Tobacco: Never Alcohol Use Standard Drinks/Week Comments Not Currently 0 (1 standard drink = 0.6 oz pur e alcohol) [facility] Utilities Answer Date Recorded In the past 12 months has e [employer], gas, oil, or water [employer] threatened to shut off services in your [...] AM EDT Office Visit Cardiology at [address] [address] Izaiah Meyer MD [facility] [place] [address] documented as of this encounter Procedures Procedure [...] on filedocumented in this encounter Care Teams Controls Project Engineer Relationship Specialty Start Date End Date Rosie Mathews MD [address] [place] [address] PCP - General Family Medicine 11/25/17 11/23/23 documented as of this encounter
--- OUTSIDE RECORDS SUMMARY | 2024-02-29 10:17 | XMS_ITS | Clinical Summary ---
Author Organization [facility] Address [address] [facility] [place] [address] Care Team Providers Care Digital Product Specialist Name Role Phone Kirsten Bateman MD Primary Care Provider [phone] Allergies Active Allergy Reactions Criticality Noted Date [...] COVID-19 Vaccine (2022-24 season) 2023 Care Teams Digital Product Specialist Relationship Specialty Start Date End Date Kirsten Bateman MD [address] [place] [phone] PCP - General 01/13/10
--- OUTSIDE RECORDS SUMMARY | 2024-03-02 10:35 | XMS_ITS | Encounter Summary ---
Author Organization [facility] Address [facility] [place] [address] Care Team Providers Care Store Merchandiser Name Role Phone Rosie Mathews MD Primary Care Provider [phone] Reason for Referral * Consultation (Routine) - Authorized Specialty Diagnoses / Procedures Referred By Contac t Referred To Contact Cardiology Diagnoses 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 Rosa Hugo MD [facility] [place] [address] Cardiac Rehab, [address] [place] [address] Referral ID Status Reason Start Date Expiration Date Visits Requested Visits Authorized [id number] Authorized Consult, Test & Treat Non PCP 11/03/2023 05/01/2024 36 36 * Home Health Care (Routine) - Authorized Specialty Diagnoses / Procedures Referred By Contac t Referred To Contact Diagnoses Unstable angina Rosa Hugo MD [facility] [place] [address] Referral ID Status Reason Start Date Expiration Date Visits Requested Visits Authorized [id number] Authorized Consult, Test & Treat 11/03/2023 05/01/2024 999 999 Reason for Visit * Auth/Cert (Routine) Specialty Diagnoses / Procedures Referred By John hunt Referred To Contact Diagnoses Unstable angina Chest pain NSTEMI Procedures CARDIAC CATHETERIZATION Rosa Dewey MD [facility] [place] [address] [facility] Referral ID Status Reason Start Date Expiration Date Visits Re quested Visits Authorized [id number] 1 Encounter Details Date Type Department Care Team (Latest Contact Info) Description 10/30/2023 5:11 PM EDT - 11/03/2023 5:13 PM EDT Hospital Encounter Heart and Vascular Unit Level 4 [place] [address] Rosa Dewey MD [facility] [place] [address] Jean Laboy MD [facility] [place] [address] Rosa Hugo MD [facility] [place] [address] 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; Tachycardia; Unstable angina Discharge Disposition: Home Social History Tobacco Use Types Packs/Day Years Used Date Smoking Tobacco: Former Smokeless Tobacco: Never Alcohol Use Standard Drinks/Week Comments Not Currently 0 (1 standard drink = 0.6 oz pur e alcohol) [facility] Utilities Answer Date Recorded In the past 12 months has e [employer], gas, oil, or water [employer] threatened to shut off services in your [...] hypertension and hyperlipidemia who presented to [facility] as a transfer from [facility] as a possible STEMI alert with acute onset chest pain. The patient reports that her symptoms initially began on Tuesday when she was walking to [place] and experienced bilateral arm heaviness while walking with no other symptoms. Then, this afternoon shereports developing bilateral achy shoulder pain and nonradiating substernal left-sided chest pressure that was 7/10 in severity after coming home from spiritism. The patient denies any associated fevers, chills, [...] on repeat, her TRU resolved. Cardiology at [facility] was consulted for transfer; the patient was loaded with aspirin 324 mg and ticagrelor 180 mg, started on a heparin drip, and given nitroglycerin with improvement in chest pain. Upon arrival to [facility], the patient was taken directly to the Artificial Insemination Technician. Two lesions were discovered: one in the prox RCA (felt to almost be a SPECIAL CERTIFICATE DICTATOR but they were able to wire, balloon, [...] dose administered prior to arrival in the agriculture laboratory technician. Recommended anti-platelet/anti-thrombotic regimen: Continue aspirin [...] and low lung volumes. Findings similar to case management assistant radiograph from CT 10/30/2023. Pending Studies [...] 10:40 AM Izaiah Meyer MD Cardiology at [place] Arrive at: [facility] [address] [phone] Future Orders Complete By Expires Referral to Cardiac Rehab [[id number] Custom] As directed Process Instructions: If no progress note charted, please enter Clinical details in comments. Scheduling Instructions: Questions: My question or request is: STEMI. Cardiac rehab at [facility]. Referral to Home Health [REF34 Custom] As directed Process Instructions: If no progress note charted, please enter Clinical details in comments. Scheduling Instructions: Comments: Please evaluate Adin Santos for admission to Home Health. [address] [facility] [address] (home) Date of : 1940 Inpatient DOCUMENTATION FOR VNA SERVICES (INCLUDING THOSE PATIENTS WITH MEDICARE COVERAGE REQUIRING HOME VNA SERVICES AND/OR HOSPICE SERVICES) PATIENT'S LOCATION: Adin Santos [address] [facility] [phone] (home) Cell: Telephone Information: Aeroplane Pilot's Name: self In discussion with the attending physician, it is certified that this patient is under their care and that they, or a Nurse Practitioner, Clinical Nurse specialist or Physician Cutter Head Sharpener who is working directly with them, had [...] regarding health issues HOME HEALTH CARE AGENCY: [facility] [address] [place] [address] START OF CARE: within 24-48 hours of [...] [address] / [facility] [address] . All A agencies [...] Mathews MD / Dr. Masood Pierson [address] [place] [address] 11/09/23 1:55 PM arrival for 2:10 PM appointment Knurling Machine Tender: Izaiah Meyer MD [address] [place] [phone] , 11/24/2023 10:40 AM Your Inpatient Medical Team at [facility] Name(s) of your inpatient provider(s): Attending physician: Rosa Hugo MD Resident physicians: Emile Robles MD; Elmer Tamez MD If you have non-emergent questions, prior to your follow-up visit call: Tuesday-Tuesday between the hours of 8AM-5PM please call the Cardiology Clinic [phone] to speak with a nurse. All other hours please call the Hospital Manager Asset Management [phone] and ask to speak to the filler feeder on-call. Your Primary Care Provider Rosie Mathews MD [phone] For questions regarding this document or issues relating to this hospitalization on the Medical Service, please contact your inpatient physician through the [facility] Manager Asset Management . Issues afterhours and on weekends will be handled by the Knurling Machine Tender staff on-call. Associated attestation - Rosa Hugo [...] MD / Dr. Masood Pierson [address] [place] [id number] 11/09/23 1:55 PM arrival for 2:10 PM appointment Knurling Machine Tender: Izaiah Meyer MD [address] [place] [address] , 11/24/2023 10:40 AM Your Inpatient Medical Team at [facility] Name(s) of your inpatient provider(s): Attending physician: Rosa Hugo MD Resident physicians: Emile Robles MD; Elmer Tamez MD If you have non-emergent questions, prior to your follow-up visit call: Tuesday-Tuesday between the hours of 8AM-5PM please call the Cardiology Clinic [phone] to speak with a nurse. All other hours please call the Hospital Manager Asset Management [phone] and ask to speak to the filler feeder on-call. Your Primary Care Provider Rosie Mathews MD [phone] documented in this encounter Medications at Time [...] hypertension and hyperlipidemia who presented to [facility] as a transfer [...] hypertension and hyperlipidemia who presented to [facility] as a transfer [...] Resident on Cardiology Service Cardiology S1 (Pager [phone]) Note written in conjunction with Claudio Perla [facility] Medical Student, MS3 Associated attestation - [...] Nirmala Webb - 11/01/2023 11:25 AM EDT Complex Case Manager Encounter Note Patient Name: Adin Santos : [id number] MR#: [id number] Admit Date: 10/30/2023 5:11 PM Hospital Day 2 days Narrative: Self initiated visit to patient for Spiritual support in a regular unit rounds. Assessment: Patient is in the bathroom at the time of this visit. Not a good time for Quality Nurse visit. Intervention and Outcome: An attempted [...] hypertension and hyperlipidemia who presented to [facility] as a transfer [...] and low lung volumes. Findings similar to case management assistant radiograph from CT 10/30/2023. Scheduled Medications: [AUG [...] hypertension and hyperlipidemia who presented to [facility] as a transfer [...] Resident on Cardiology Service Cardiology S1 (Pager [phone]) Note written in conjunction with Claudio Perla [facility] Medical Student, MS3 Associated attestation - [...] hypertension and hyperlipidemia who presented to [facility] as a transfer from [facility] as a possible STEMI alert with acute onset chest pain. Active Problems: Active Hospital Problems Diagnosis Unstable angina Resolved Hospital Problems No resolved problems to display. 24 hr events: - Cath'd yesterday with lesion in the proximal RCA (initially thought it was SPECIAL CERTIFICATE DICTATOR but they were ableto wire, balloon and [...] and low lung volumes. Findings similar to case management assistant radiograph from CT 10/30/2023. TTE (05/13): Interpretation [...] hypertension and hyperlipidemia who presented to [facility] as a transfer [...] Resident on Cardiology Service Cardiology S1 (Pager [phone]) Note written in conjunction with Claudio Perla [facility] Medical Student, MS3 Associated attestation - [...] PCP: Rosie Mathews MD PCP phone number: [phone] Date of Admission: 10/30/2023 ( Hospital Day 0 days ) Attending:Rosa Cornejo MD ID: Adin Santos is a 83 y.o. female PMH significant for hypertension and hyperlipidemia who presented to [facility] as a transfer from [facility] as a possible STEMI alert with acute onset chest pain. The patient reports that her symptoms initially began on Tuesday when she was walking to [place] and experienced bilateral arm heaviness while walking with no other symptoms. Then, this afternoon shereports developing bilateral achy shoulder pain and nonradiating substernal left-sided chest pressure that was 7/10 in severity after coming home from spiritism. The patient denies any associated fevers, chills, [...] on repeat, her TRU resolved. Cardiology at [facility] was consulted for transfer; the patient was loaded with aspirin 324 mg and ticagrelor 180 mg, started on a heparin drip, and given nitroglycerin with improvement in chest pain. Upon arrival to [facility], the patient was taken directly to the Artificial Insemination Technician. 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 Findings similar to case management assistant radiograph from CT 10/30/2023. Assessment & Plan: Adin Santos is a 83 y.o. female PMH significant for hypertension and hyperlipidemia who presented to [facility] as a transfer [...] with HTN HLD transferred with chest from [facility]. BP 217/68, HR 71 [...] information for follow-up Home Health & Hospice, [place] [address] [place] [address] TANESHA BOYCE confirmed with [facility] that they will see the patient within [...] N/A Patient is insured through: Primary Insurance: [employer] PTY MANAGED MEDICARE Payor: [employer] MEDICARE / Plan: [employer] PTY MANAGED MEDICARE PPO / Product Type: *No [...] the room. Electrolytes replaced, see MAR. labor service representative sites remained C/D/I with baseline ecchymosis unchanged. Pt complained of back pain, lidocaine patch given. Right IV infiltrated during infusion, patient is marked with sharpie, IV removed. See flowsheet for I+O's and safety rounding. Patient is able to make needs known and call capps within reach. PLAN MOVING FORWARD: Monitor Tele, control BP, monitor agriculture laboratory technician sites, D/C Planning INDIVIDUALIZED FALL [...] in an outpatient cardiac rehabilitation program at [facility] was discussed. Patient agrees [...] and above on RA. PT went to agriculture laboratory technician today. Left fem site oozed [...] MOVING FORWARD: Monitor Tele, control BP, monitor agriculture laboratory technician sites, D/C Planning INDIVIDUALIZED FALL [...] Admitted From: Transfer from another hospital Location: [facility] Reason for Hospitalization: chest [...] receiving care in [place] must abide by [place] law. The hierarchy [...] The agent with financial power of commercial litigation attorney or a conservator appointed in [...] steady place to sleep or slept in [facility] (including now)?: No In the [...] toilet seat Home Address confirmed as: [address] [place] [id number] Social & Family Supports: All names listed below confirmed with patient as current and correct Extended Emergency Contact Information Primary Emergency Contact: Iris Downing Address: [address] [place], [place] [address] [place] [address] Mobile Relation: Child Secondary Emergency Contact: Karen More Address: [address] [facility] Mobile Relation: Child Current Care [...] Insurance: N/A Prescription Coverage: Yes Preferred Pharmacy: [id number] - [place], [place] - [address] [facility] [address] [facility] [address] Status: Patient is a : No Primary Care Provider listed: Masood Pierson MD [phone] Patient/Caregiver Goals of Treatment: home when MR Potential Needs for Transition of Care: home health care Agency Referrals: Not Applicable I have met with the patient to: discuss discharge planning needs. provide the [facility], Office of Care Management letter from the Certified Technician pertaining to rehab referrals. provide a letter describing our affiliations within the [facility] and educate about their right to choose where referrals are sent. provide a list of Home Health Agencies / Durable Medical Equipment vendors which serve their preferred geographic area. provided patient with [facility] Star Quality Rating handout. They have requested referrals to: [facility] [address] [place] [address] Note routed to a Manager Technical who will communicate referrals to facilities and [...] PO hydralazine added for BP control. labor service representative sites remain C/D/I, ecchymosis unchanged th roughout shift. See flowsheet for I+O's and safety rounding. Patient is able to make needs known and call capps within reach. PLAN MOVING FORWARD: Monitor Tele, control CP and BP, NPO at MD for cath, monitor agriculture laboratory technician sites, D/C Planning INDIVIDUALIZED FALL [...] AM EDT Office Visit Cardiology at [address] [place] [address] Izaiah Meyer MD [facility] [place] [address] Scheduled Referrals Name Type Priority Associated Diagnoses [...] Abs 1.3 0.9 - 3.2 x10(3)/ L [facility] Monocyte % 16.9 % [facility] Monocyte Abs 1.4(H) 0.3 - 0.9 x10(3)/ L [facility] Eos % 3.7 % [facility] Eosinophils Abs 0.3 0.0 - 0.4 x10(3)/[facility] Basophil % 0.5 % [facility] [place] [...] [facility] [place] [address] * (ABNORMAL) Hemogram (11/03/2023 3:46 AM EDT) [...] CENTER LABORATORY Platelet 181 145 - 357 x10(3)/[facility] RDW Standard Deviation 54.7(H) 37.0 - 46.0 [facility] RDW coefficient of variation 14.6(H) 11.5 - 14.1 % [facility] Mean Platelet Volume 11.2 7.6 - 12.9 [facility] NRBC% auto 0.0 % [facility] NRBC Absolute 0.000 0.000 - 0.000 x10(3)/ L [facility] Blood 11/03/2023 3:46 AM EDT 11/03/2023 4:11 AM EDT Narrative Resulting Agency Comment Spec In Lab Qamar Gallardo MD HEMATOLOGY ORDERABLE S [facility] [place] [address] * Phosphorus (11/03/2023 3:46 AM EDT) Phosphorus 3.2 2.5 - 4.5 mg/dL [facility] Comment:result rechecked-KS Blood 11/03/2023 3:46 AM EDT 11/03/2023 4:11 AM EDT Narrative Resulting Agency Comment Spec In Lab Rosa Cornejo MD CHEMISTRY ORDERABLE S [facility] [place] [address] * Magnesium (11/03/2023 3:46 AM EDT) Magnesium 0.90 0.69 - 1.07 mmol/L [facility] Blood 11/03/2023 3:46 AM EDT 11/03/2023 4:11 AM EDT Narrative Resulting Agency Comment Spec In Lab Rosa Cornejo MD CHEMISTRY ORDERABLE S Performing Organization Address City/[facility]/ZIP Co de Phone Number [facility] [place] [address] * (ABNORMAL) Basic Metabolic Panel (non-fasting) (11/03/2023 3:46 AM EDT) Glucose 105 65 - 199 mg/dL WHITE [...] [facility] [place] [id number] * EKG 12 Lead (11/02/2023 12:44 PM EDT) Ventricular rate 83 BPM MUSE SYSTEM Atrial Rate 83 BPM MUSE SYSTEM P-R Interval 216 ms MUSE SYSTEM QRS Duration 90 ms MUSE SYSTEM Q-T Interval 384 ms MUSE SYSTEM QTC Calculated (Bezet) 451 ms MUSE SYSTEM Calculated P [place] 92 degrees MUSE SYSTEM Calculated R [place] -51 degrees MUSE SYSTEM Calculated T [place] -33 degrees MUSE SYSTEM INTERPRETATION Sinus rhythm with 1st degree A-V block with Premature atrial complexes Left axis deviation Moderate voltage criteria for LVH, may be normal variant ( R in aVL , Ifeanyi product ) Anterolatera l infarct (cited on or before 01-NOV-2023) Abnormal ECG When compared with ECG of 01-NOV-2023 22:10, Premature atrial complexes are now Present ME interval has increased Vent. rate has decreased [...] Tamez MD URINE ORDERABLES Performing Organization Address City/[facility] Co de Phone Number [facility] [address] * (ABNORMAL) Urinalysis with reflex Culture (11/02/2023 [...] CENTER LABORATORY Leukocytes, Urine Dipstick Small(A) Negative [facility] Appearance, Urine Dipstick Cloudy(A) Clear [facility] Specific [employer] Urine Automated >=1.030(A) 1.005 - 1.030 WHITE [...] MD URINE ORDERABLES Performing Organization Address City/State/[facility] Co de Phone Number [facility] [place] [address] * Respiratory Panel PCR (11/02/2023 10:15 AM EDT) Respiratory Panel Source CORPORATE TRUST OFFICER Swab [facility] Respiratory Panel PCR Negative Negative [facility] Comment: Respiratory Panels are performed on the Qitio, using multiplexed PCR nucleic acid detection. ??Negative [...] performed using the BioFire Respiratory Panel 2.1 (Resale Therapy) as authorized by the FDA issued Emergency Use Authorization (EUA). This panel also tests for multiple other viral and bacterial pathogens. This assay is intended for In-vitro Diagnostic (IVD) use with nasopharyngeal swabs in viral transport media. The assay is performed based on the instructions for use and additional guidance provided by the FDA. Testing is performed in laboratories within the [facility], each of which is certified under the [...] fact sheets at the following FDA website: https://www.fda.gov/medical-devices/uqxrldlekuy-xbxguoi-6524-wzikx-84-xoywzzkwy- use-a usrualmbxqscj-snbndjl-oemmkuk/olzcb-rqajquddiuz-ynzn Human Metapneumovirus Not Detected Not Detected WHITE [...] [facility] [place] [address] * XR Chest One View (11/02/2023 2:51 AM EDT) WORKSTATION ID [id number] RAD Anatomical Region Laterality Modality Chest N/A [...] who have questions please contact the health animal care technician that requested your imaging first. ? Electronically signed by: Omaira Tran MD, [facility] ([phone]), at 11/02/2023 4:56 AM Narrative 11/02/2023 4:56 [...] patients who have questions please contactthe health animal care technician that requested your imaging first. Electronically signed by: Omaira Tran MD, [facility]([phone]), at 11/02/2023 4:56 AM Rosa Hugo MD [...] [facility] [place] [address] * (ABNORMAL) Hemogram (11/02/2023 12:35 AM EDT) White Blood Cell 10.0(H) 4.0 - 9.5 x10(3)/mc L [facility] [...] Mean Platelet Volume 11.4 7.6 - 12.9 [facility] NRBC% auto 0.0 % [facility] NRBC Absolute 0.000 0.000 - 0.000 x10(3)/ L [facility] Blood 11/02/2023 12:3 5 AM EDT 11/02/2023 12:43 AM EDT Narrative Resulting Agency Comment Spec In Lab Qamar Gallardo MD HEMATOLOGY ORDERABLE S [facility] [place] [address] * (ABNORMAL) Phosphorus (11/02/2023 12:35 AM EDT) Phosphorus 1.6(L) 2.5 - 4.5 mg/dL [facility] Blood 11/02/2023 12:3 5 AM EDT 11/02/2023 12:43 AM EDT Narrative Resulting Agency Comment Spec In Lab Rosa Cornejo MD CHEMISTRY ORDERABLE S [facility] [place] [address] * Magnesium (11/02/2023 12:35 AM EDT) Pathologist [facility] Magnesium 0.87 0.69 - 1.07 mmol/L [facility] Blood 11/02/2023 12:3 5 AM EDT 11/02/2023 12:43 AM EDT Narrative Resulting Agency Comment Spec In Lab Rosa Cornejo MD CHEMISTRY ORDERABLE S Performing Organization Address City/[facility]/ZIP Co de Phone Number [facility] [place] [address] * Basic Metabolic Panel (non-fasting) (11/02/2023 12:35 [...] [facility] [place] [address] * Blood culture (11/02/2023 12:35 AM EDT) Blood Culture No growth at 5 days. [facility] Blood 11/02/2023 12:3 5 AM EDT 11/02/2023 1:55 AM EDT Comment:#2 site ukn Narrative Resulting Agency Comment Spec In Lab Rosa Hugo MD MICROBIOLOGY - BLO OD ORDERABLES [facility] [place] [address] * Blood culture (11/02/2023 12:15 AM EDT) Blood Culture No growth at 5 days. [facility] Blood 11/02/2023 12:1 5 AM EDT 11/02/2023 1:54 AM EDT Comment:#1site unk Narrative Resulting Agency Comment Spec In Lab Rosa Hugo MD MICROBIOLOGY - BLO OD ORDERABLES Performing Organization Address City/[facility]/ZIP Co de Phone Number [facility] [place] [address] * EKG 12 Lead (11/01/2023 10:10 PM EDT) Ventricular rate 139 BPM MUSE SYSTEM Atrial Rate 139 BPM MUSE SYSTEM P-R Interval 168 ms MUSE SYSTEM QRS Duration 84 ms MUSE SYSTEM Q-T Interval 286 ms MUSE SYSTEM QTC Calculated (Bezet) 435 ms MUSE SYSTEM Calculated R [place] -59 degrees MUSE SYSTEM Calculated T [place] -27 degrees MUSE SYSTEM INTERPRETATION Mid-RP tachycardia, [...] interpretation Confirmed by fellow MD Andrés, Enriqueta ([id number]) on 11/04/2023 7:57:50 AM Confirmed by MD Gerardo, Shameka ([id number]) on 11/04/2023 4:32:03 PM MUSE SYSTEM 11/01/2023 10:1 0 PM EDT 11/04/2023 4:32 PM EDT Rosa Cornejo MD ECG ORDERABLES Performing Organization Address City/[facility]/ZIP Co de Phone Number MUSE SYSTEM * (ABNORMAL) Hemogram (11/01/2023 10:06 PM EDT) White Blood Cell 10.4(H) 4.0 - 9.5 x10(3)/ L [facility] Red Blood Cell 4.11 4.00 - 5.21 x10(6)/ L [facility] [...] CENTER LABORATORY Platelet 197 145 - 357 x10(3)/[facility] LABORATORY RDW Standard Deviation 54.0(H) 37.0 - 46.0 fL [facility] RDW coefficient of variation 14.6(H) 11.5 - 14.1 % [facility] Mean Platelet Volume 11.2 7.6 - 12.9 fL [facility] NRBC% auto 0.0 % [facility] NRBC Absolute 0.000 0.000 - 0.000 x10(3)/[facility] LABORATORY Blood 11/01/2023 10:0 6 PM EDT 11/01/2023 10:22 PM EDT Narrative Resulting Agency Comment Spec In Lab Rosa Hugo MD HEMATOLOGY ORDERAB LES [facility] [place] [address] * POCT Glucose (11/01/2023 5:59 PM EDT) Glucose, POC 104 65 - 199 mg/dL [facility] Comment: Supplemental ranges: <140 mg/dL before meals <180 mg/dL all other times of the day Blood 11/01/2023 5:59 PM EDT 11/01/2023 5:59 PM EDT Rosa Hugo MD POINT OF CARE TEST ORDERABLES [facility] [address] * POCT Glucose (11/01/2023 5:35 PM EDT) Glucose, POC 85 65 - 199 mg/dL [facility] Comment: Supplemental ranges: <140 mg/dL before meals <180 mg/dL all other times of the day Blood 11/01/2023 5:35 PM EDT 11/01/2023 5:35 PM EDT Rosa Hugo MD POINT OF CARE TEST ORDERABLES Performing Organization Address City/[facility] Co de Phone Number [facility] [address] * EKG 12 Lead (11/01/2023 3:22 PM EDT) Ventricular rate 59 BPM MUSE SYSTEM Atrial Rate 59 BPM MUSE SYSTEM P-R Interval 220 ms MUSE SYSTEM QRS Duration 94 ms MUSE SYSTEM Q-T Interval 428 ms MUSE SYSTEM QTC Calculated (Bezet) 423 ms MUSE SYSTEM Calculated P [place] 76 degrees MUSE SYSTEM Calculated R [place] -50 degrees MUSE SYSTEM Calculated T [place] -59 degrees MUSE SYSTEM INTERPRETATION Sinus bradycardia [...] Other Narrative 11/02/2023 4:57 PM EDT ?[facility] ? Cardiac Catheterization/Intervention Report ? Patient Name: Joleen, Adin Catherine. ? Procedure Date: 11/01/2023 ? A #: [id number] ? Primary Physician: Rosa Dewey I ? Case #: [id number] ? File Name: [id number] ? Catheterization Order Number: [id number] ? [facility] ? Final Report [place], [place] ? Patient Name: ? Adin Townsendjosue ?ID#: ?[id number] ? : ?1940 ? Procedure Date: ? [...] procedure was Urgent. The indication for ?the agriculture laboratory technician visit is ACS greater than [...] ??A premounted ? 3.50 x 15 mm [place] (RADHA) was deployed with a maximum ? [...] ? A premounted 3.50 x 15 mm [place] (RADHA) was deployed ? with a maximum [...] dose administered prior to arrival in the agriculture laboratory technician. ?Recommended anti-platelet/anti-thrombotic regimen: ?Continue aspirin 81 mg daily for indefinitely. ?Continue clopidogrel 75 mg daily for 12 months then stop. ?These recommendations are made at the time of the intervention. Patient ?and provider preferences or a changing clinical situation may require ?modification of this regimen. Consult [facility] Interventional Cardiology for [...] Note Otto, Rosa I, MD - 12/12/2023 [facility] Cardiac Catheterization/Intervention Report Patient Name: Adin Santos Procedure Date: 11/01/2023 A #: [id number] Primary Physician: Rosa Dewey I Case #: [id number] File Name: [id number] Catheterization Order Number: [id number] [facility] FinalReport [place], [place] Patient Name: Adin Santos ID#:[id number] :1940 Procedure Date: November 01, 2023 Case [...] diagnostic procedure was Urgent. The indicationfor the agriculture laboratory technician visit is ACS greater than [...] 14 atmospheres. Apremounted 3.50 x 15 mm [place] (RADHA) was deployed with amaximum inflation pressure [...] The lesion was predilated with a 3.00mm [id number] MM balloon with a maximum inflation pressure of 14atmospheres. A premounted 3.50 x 15 mm [place] (RADHA) wasdeployed with a maximum inflation pressure [...] dose administered prior to arrival in the agriculture laboratory technician. Recommended anti-platelet/anti-thrombotic regimen: Continue aspirin 81 mg daily for indefinitely. Continue clopidogrel 75 mg daily for 12 months then stop. These recommendations are made at the time of the intervention.Patient and provider preferences or a changing clinical situation mayrequire modification of this regimen. Consult [facility] Interventional Cardiologyfor questions. [...] * POCT Glucose (11/01/2023 7:06 AM EDT) [facility] Glucose, POC 93 65 - 199 mg/dL [facility] Comment: Supplemental ranges: <140 mg/dL before meals <180 mg/dL all other times of the day Blood 11/01/2023 7:06 AM EDT 11/01/2023 7:06 AM EDT Jean Laboy MD POINT OF CARE TEST O RDERABLES [facility] [place] [address] * (ABNORMAL) Differential, Automated (11/01/2023 3:09 AM EDT) [facility] Neutrophil % 63.9 % [facility] Neutrophil Absolute 5.54 1.70 - 6.10 x10(3)/mc L [facility] Lymph % 20.0 % [facility] Lymphocytes Abs 1.7 0.9 - 3.2 x10(3)/mc L [facility] Monocyte % 11.9 % [facility] Monocyte Abs 1.0(H) 0.3 - 0.9 x10(3)/mc L [facility] Eos % 3.2 % [facility] Eosinophils Abs 0.3 0.0 - 0.4 x10(3)/mc L [facility] [...] HEMATOLOGY ORDERABLE S Performing Organization Address City/State/[facility] Co de Phone Number [facility] [place] [address] * (ABNORMAL) Hemogram (11/01/2023 3:09 AM EDT) White Blood Cell 8.7 4.0 - 9.5 x10(3)/ L [facility] Red Blood Cell 3.72(L) 4.00 - 5.21 x10(6)/mc L [facility] Hemoglobin 12.5 11.7 - [...] CENTER LABORATORY Platelet 184 145 - 357 x10(3)/ L [facility] MD HEMATOLOGY ORDERABLE S Performing Organization Address City/[facility]/ZIP Co de Phone Number [facility] [place] [address] * Phosphorus (11/01/2023 3:09 AM EDT) Phosphorus 2.5 2.5 - 4.5 mg/dL [facility] Blood 11/01/2023 3:09 AM EDT 11/01/2023 3:29 AM EDT Narrative Resulting Agency Comment Spec In Lab Rosa Cornejo MD CHEMISTRY ORDERABLE S Performing Organization Address City/[facility]/ZIP Co de Phone Number [facility] [place] [address] * Magnesium (11/01/2023 3:09 AM EDT) Magnesium 0.82 0.69 - 1.07 mmol/L [facility] Blood 11/01/2023 3:09 AM EDT 11/01/2023 3:29 AM EDT Narrative Resulting Agency Comment Spec In Lab Rosa Cornejo MD CHEMISTRY ORDERABLE S Performing Organization Address City/[facility]/ZIP Co de Phone Number [facility] [place] [address] * (ABNORMAL) Basic Metabolic Panel (non-fasting) (11/01/2023 [...] [facility] [place] [address] * (ABNORMAL) Troponin (10/31/2023 2:46 PM EDT) [...] value can be found in the [facility] Laboratory Test Catalog Troponin - [facility] Laboratory Test Catalog Reference: Fourth Jefferson Definition of Myocardial Infarction. Journal of the [employer] [employer] 2018;72:1422-2990 Blood 10/31/2023 2:46 PM EDT 10/31/2023 2:55 PM EDT Narrative Resulting Agency Comment Spec In Lab Jean Laboy MD CHEMISTRY ORDERABLES [facility] [place] [address] * EKG 12 Lead (10/31/2023 1:07 PM EDT) Ventricular rate 54 BPM MUSE SYSTEM Atrial Rate 54 BPM MUSE SYSTEM P-R Interval 218 ms MUSE SYSTEM QRS Duration 92 ms MUSE SYSTEM Q-T Interval 540 ms MUSE SYSTEM QTC Calculated (Bezet) 512 ms MUSE SYSTEM Calculated P [place] 85 degrees MUSE SYSTEM Calculated R [place] -44 degrees MUSE SYSTEM Calculated T [place] -69 degrees MUSE SYSTEM INTERPRETATION Sinus bradycardia [...] EDT) Troponin-T, High Sensitivity 580(H) <=14 ng/L WHITE [...] value can be found in the [facility] Laboratory Test Catalog Troponin - [facility] Laboratory Test Catalog Reference: Fourth Jefferson Definition of Myocardial Infarction. Journal of the [employer] 2018;72:1522-5610 Blood 10/31/2023 11:3 7 AM EDT 10/31/2023 11:50 AM EDT Narrative Resulting Agency Comment Spec In Lab Rosa Cornejo MD CHEMISTRY ORDERABLE S Performing Organization Address [facility]/State/ZIP Co de Phone Number [facility] [place] [address] * ECHO COMPLETE (10/31/2023 8:52 AM EDT) Anatomical Region Laterality Modality Cardiac Other 10/31/2023 7:57 AM EDT Narrative 10/31/2023 9:45 AM EDT [address] [place] [address] ? Echocardiogram Report Name: ADIN SANTOS ? Study Date: 10/31/2023 07:57 AMBP: 106/76 mmHg ? Patient Location: [id number] A : 1940 ? Height: 163 cm ? Account: [id number] Age: 83 yrs ? Weight: 76 kg [...] is no prior echocardiogram for comparison. Procedure Complete-67111. Satisfactory quality. There is sinus bradycardia. Left [...] Note Edgard Wang MD - 10/31/2023 [address] [place] [address] Echocardiogram Report Name: ADIN SANTOS Study Date: 407:57 AMBP: 106/76 mmHg Patient Location: [id number] A : 1940 Height: 163 cm Account: [id number] Age: 83 yrs Weight: 76 kg Gender: [...] is no prior echocardiogram for comparison. Procedure Complete-32795. Satisfactory quality. There is sinus bradycardia. Left [...] EDT) Troponin-T, High Sensitivity 571(H) <=14 ng/L WHITE [...] value can be found in the [facility] Laboratory Test Catalog Troponin - [facility] Laboratory Test Catalog Reference: Fourth Jefferson Definition of Myocardial Infarction. Journal of the [employer] 2018;72:0727-2600 Blood 10/31/2023 8:51 AM EDT 10/31/2023 9:12 AM EDT Narrative Resulting Agency Comment Spec In Lab Rosa Cornejo MD CHEMISTRY ORDERABLE S [facility] [place] [address] * CARDIAC CATHETERIZATION (10/31/2023 8:10 AM EDT) Anatomical Region Laterality Modality Other Narrative 11/07/2023 9:42 AM EDT ?[facility] ? Cardiac Catheterization/Intervention Report ? Patient Name: Adin Santos. ? Procedure Date: 10/30/2023 ? A #: [id number] ? Primary Physician: Rosa Dewey I ? Case #: [id number] ? File Name: [id number] ? Catheterization Order Number: [id number] ? [facility] ?[facility] ? Final Report [place], [place] ? Patient Name: ? Adin M. Goguen ?ID#: ?[id number] ? : ?1940 ? Procedure Date: ? [...] procedure was Emergent. The indication for ?the agriculture laboratory technician visit is ACS less than [...] ? A premounted 4.00 x 38 mm [place] (RADHA) was deployed ? with a maximum [...] dose administered prior to arrival in the agriculture laboratory technician. ?Recommended anti-platelet/anti-thrombotic regimen: ?Continue aspirin 81 mg daily for 12 months then stop. ?Continue clopidogrel 75 mg daily for indefinitely. ?These recommendations are made at the time of the intervention. Patient ?and provider preferences or a changing clinical situation may require ?modification of this regimen. Consult [facility] Interventional Cardiology for [...] nurse. ??Case time = 02:40. ?Dr. Rosa eDwey M.D. performed the coronary angiography, left heart ?catheterization, IVUS # coronary, stent insertion-coronary, access site ?angiography, vascular closure device and vascular ultrasound. ? Rosa Dewey M.D. ? Electronically Signed by: Rosa Dewey M.D. ? Report Finalized: 11/07/2023 ??09:36 ? Report Last Ammended: 12/05/2023 ??09:12 ? Procedure Note Rosa Dewey MD - 12/05/2023 [facility] Cardiac Catheterization/Intervention Report Patient Name: Adin Santos Procedure Date: 10/30/2023 A #: [id number] Primary Physician: Rosa Dewey I Case #: [id number] File Name: [id number] Catheterization Order Number: [id number] [facility] FinalReport [place], [place] Patient Name: Adin CatherineYasir Edvinree ID#:[id number] :1940 Procedure Date: October 30, 2023 Case #: [id number] Room: 5 Case Physician: Rosa Dewey M.D. [...] was designated as ASA Class III. The [facility] clinical frailtyscale is 5: Mildly Frail. Diagnostic Tests: Electrocardiography: EKG was assessed by ECG. EKG was Abnormal. EKG showed STDeviation >= 0.5 mm, other abnormality and dynamic EKG changes. Medications Prior to Procedure: Aspirin, Angiotensin II Receptor Kristy, Beta Kristy andStatin. Indications for Diagnostic Cath: The priority of the diagnostic procedure was Emergent. Theindication for the agriculture laboratory technician visit is ACS less than [...] priority for the procedure was Emergent.The [facility] indication for the procedure was STEMI-Immediate [...] 16atmospheres. A premounted 4.00 x 38 mm [place] (RADHA) wasdeployed with a maximum inflation pressure [...] dose administered prior to arrival in the agriculture laboratory technician. Recommended anti-platelet/anti-thrombotic regimen: Continue aspirin 81 mg daily for 12 months then stop. Continue clopidogrel 75 mg daily for indefinitely. These recommendations are made at the time of the intervention.Patient and provider preferences or a changing clinical situation mayrequire modification of this regimen. Consult [facility] Interventional Cardiologyfor questions. [...] * (ABNORMAL) Troponin (10/31/2023 4:21 AM EDT) [facility] Troponin-T, High Sensitivity 457(H) <=14 ng/L WHITE [...] value can be found in the [facility] Laboratory Test Catalog Troponin - [facility] Laboratory Test Catalog Reference: Fourth Jefferson Definition of Myocardial Infarction. Journal of the [employer] [employer] 2018;72:1448-7705 Blood 10/31/2023 4:21 AM EDT 10/31/2023 4:30 AM EDT Narrative Resulting Agency Comment Spec In Lab Rosa Cornejo MD CHEMISTRY ORDERABLE S [facility] [place] [address] * (ABNORMAL) Differential, Automated (10/31/2023 3:05 AM [...] Absolute 0.04 0.00 - 0.04 x10(3)/mc L [facility] Blood 10/31/2023 3:05 AM EDT 10/31/2023 3:13 AM EDT Narrative Resulting Agency Comment Spec In Lab Qamar Gallardo MD HEMATOLOGY ORDERABLE S [facility] [place] [address] * (ABNORMAL) Hemogram (10/31/2023 3:05 AM EDT) White Blood Cell 11.5(H) 4.0 - 9.5 x10(3)/ L [facility] Red Blood Cell 3.75(L) 4.00 - 5.21 x10(6)/[facility] LABORATORY Hemoglobin 12.6 11.7 - 15.5 g/dL [...] Platelet 206 145 - 357 x10(3)/ L [facility] RDW Standard Deviation 53.4(H) 37.0 - 46.0 [facility] LABORATORY RDW coefficient of variation 14.6(H) 11.5 - 14.1 % [facility] Mean Platelet Volume 11.1 7.6 - 12.9 [facility] NRBC% auto 0.0 % [facility] NRBC Absolute 0.000 0.000 - 0.000 x10(3)/ L [facility] Blood 10/31/2023 3:05 AM EDT 10/31/2023 3:13 AM EDT Narrative Resulting Agency Comment Spec In Lab Qamar Gallardo MD HEMATOLOGY ORDERABLE S Performing Organization Address [facility] Co de Phone Number [facility] [place] [address] * (ABNORMAL) APTT (10/31/2023 3:05 AM EDT) [...] MD HEMATOLOGY ORDERABL ES Performing Organization Address [facility] de Phone Number [facility] [place] [address] * (ABNORMAL) Prothrombin Time (10/31/2023 3:05 AM [...] ORDERABL ES Performing Organization Address [facility] Co de [place] [address] * (ABNORMAL) Differential, Automated (10/31/2023 1:37 AM EDT) Pathologist [facility] Neutrophil % 71.1 % [facility] Neutrophil Absolute 7.53(H) 1.70 - 6.10 x10(3)/ L [facility] Lymph % 18.0 % [facility] Lymphocytes Abs 1.9 0.9 - 3.2 x10(3)/ L [facility] Monocyte % 8.7 % [facility] Monocyte Abs 0.9 0.3 - 0.9 x10(3)/[facility] Eos % 1.6 % [facility] Eosinophils Abs 0.2 0.0 - 0.4 x10(3)/[facility] LABORAT[facility] Basophil % 0.4 % [facility] Baso Absolute 0.0 0.0 - 0.1 x10(3)/[facility] LABORATORY Immature Gran % 0.20 % WHITE [...] [facility] [place] [address] * (ABNORMAL) Hemogram (10/31/2023 1:37 AM EDT) [...] CENTER LABORATORY Platelet 204 145 - 357 x10(3)/ L [facility] [...] Absolute 0.000 0.000 - 0.000 x10(3)/ L [facility] Blood 10/31/2023 1:37 AM EDT 10/31/2023 1:46 AM EDT Narrative Resulting Agency Comment Spec In Lab Qamar Gallardo MD HEMATOLOGY ORDERABLE S [facility] [place] [address] * Phosphorus (10/31/2023 1:37 AM EDT) Phosphorus 3.2 2.5 - 4.5 mg/dL [facility] Blood 10/31/2023 1:37 AM EDT 10/31/2023 1:46 AM EDT Narrative Resulting Agency Comment Spec In Lab Rosa Cornejo MD CHEMISTRY ORDERABLE S [facility] [place] [address] * Magnesium (10/31/2023 1:37 AM EDT) Pathologist [facility] Magnesium 0.83 0.69 - 1.07 mmol/L [facility] Blood 10/31/2023 1:37 AM EDT 10/31/2023 1:46 AM EDT Narrative Resulting Agency Comment Spec In Lab Rosa Cornejo MD CHEMISTRY ORDERABLE S Performing Organization Address [facility] Co de Phone Number [facility] [place] [address] * Basic Metabolic Panel (non-fasting) (10/31/2023 1:37 AM EDT) Pathologist [facility] Glucose 114 65 - 199 mg/dL WHITE [...] [facility] [place] [place] [address] * (ABNORMAL) Troponin (10/31/2023 1:37 AM EDT) [...] value can be found in the [facility] Laboratory Test Catalog Troponin - [facility] Laboratory Test Catalog Reference: Fourth Jefferson Definition of Myocardial Infarction. Journal of the [place] [employer] 2018;72:1577-6864 Blood 10/31/2023 1:37 AM EDT 10/31/2023 1:46 AM EDT Narrative Resulting Agency Comment Spec In Lab Rosa Cornejo MD CHEMISTRY ORDERABLE S Performing Organization Address [facility]/ZIP Co de Phone Number [facility] [place] [address] * EKG 12 Lead (10/31/2023 1:20 AM EDT) Ventricular rate 52 BPM MUSE SYSTEM Atrial Rate 52 BPM MUSE SYSTEM P-R Interval 224 ms MUSE SYSTEM QRS Duration 108 ms MUSE SYSTEM Q-T Interval 544 ms MUSE SYSTEM QTC Calculated (Bezet) 505 ms MUSE SYSTEM Calculated P [place] 90 degrees MUSE SYSTEM Calculated R [place] -57 degrees MUSE SYSTEM Calculated T [place] -63 degrees MUSE SYSTEM INTERPRETATION Sinus bradycardia [...] Cornejo MD ECG ORDERABLES Performing Organization Address City/[facility]/ZIP Co de Phone Number MUSE SYSTEM * EKG 12 Lead (10/30/2023 10:40 PM EDT) Ventricular rate 55 BPM MUSE SYSTEM Atrial Rate 55 BPM MUSE SYSTEM P-R Interval 232 ms MUSE SYSTEM QRS Duration 102 ms MUSE SYSTEM Q-T Interval 520 ms MUSE SYSTEM QTC Calculated (Bezet) 497 ms MUSE SYSTEM Calculated P [place] 75 degrees MUSE SYSTEM Calculated R [place] -53 degrees MUSE SYSTEM Calculated T [place] -57 degrees MUSE SYSTEM INTERPRETATION Sinus bradycardia with 1st degree A-V block Left anterior fascicular block Moderate voltage criteria for LVH, may be normal variant ( R in aVL , Riggins product ) T wave abnormality, consider inferior [...] Chest One View (10/30/2023 10:10 PM EDT) Opposing Views WORKSTATION ID [id number] DH RAD Anatomical Region Laterality Modality Chest [...] and low lung volumes. Findings similar to case management assistant radiograph from CT 10/30/2023. Thank you for letting us participate in the care of this patient. ??If you are a health care provider and have any questions regarding this report, please contact the number below. ??For patients who have questions please contact the health animal care technician that requested your imaging first. ? Narrative [...] and low lung volumes. Findings similar to case management assistant radiograph from CT 10/30/2023. Thank you for letting us participate in the care of this patient. If youare a health care provider and have any questions regarding this report,please contact the number below. For patients who have questions please contactthe health animal care technician that requested your imaging first. Rosa Cornejo MD IMG DX ORDERABLES * Green Tube HOLD (10/30/2023 10:05 PM EDT) Pathologist [facility] Green Hold Sample in lab. [facility] Blood Venous Draw / Unknown 10/30/2023 10:05 PM EDT 10/30/2023 10:13 PM EDT Qamar Gallardo MD CHEMISTRY ORDERABLES [facility] [place] [address] * (ABNORMAL) Differential, Automated (10/30/2023 10:05 PM EDT) Pathologist [facility] Neutrophil % 76.6 % [facility] [...] [facility] [place] [address] * (ABNORMAL) Hemogram (10/30/2023 10:05 PM EDT) White Blood Cell 9.0 4.0 - 9.5 x10(3)/mc L [facility] [...] MD HEMATOLOGY ORDERABLE S Performing Organization Address [facility] Co de Phone Number [facility] [address] * Hemoglobin A1c (10/30/2023 10:05 PM EDT) [...] Mellitus, Diabetes Care 2013; 36: Suppl. 1, S67-51 Estimated Average Glucose See note mg/dL [facility] Comment: Estimated Average Glucose not appropriate for patients over 70 years of age. Blood 10/30/2023 10:0 5 PM EDT 10/30/2023 10:12 PM EDT Narrative Resulting Agency Comment Spec In Lab Rosa Cornejo MD CHEMISTRY ORDERABLE S Performing Organization Address [facility] Co de Phone Number [facility] [place] [address] * Lipid Panel (Reflex Direct LDL) (10/30/2023 10:05 PM EDT) Cholesterol, Total 218 mg/dL [facility] Comment: Desirable: ? <200 mg/dL Borderline High: 200-239 mg/dL Higher: ?>fu=593 mg/dL Triglyceride 46 mg/dL [facility] Comment: Normal: ?<150 mg/dL Borderline High: 150-199 mg/dL High: ?200-499 mg/dL Very High: ? >az=991 mg/dL HDL Cholesterol 64 mg/dL [facility] Comment: Females: High Risk: <50 mg/dL Males: High Risk: <40 mg/dL LDL Cholesterol 145 mg/dL [facility] Comment: Desirable: ? <100 mg/dL Above Desirable: 100-129 mg/dL Borderline High: 130-159 mg/dL High: ?160-189 mg/dL Very High: ? >qo=646 mg/dL Lipid Interpretation See Note [facility] [...] Guidelines (most recently Feliciano et al. [facility] 03/23/22): For individuals with atherosclerotic cardiovascular disease (ASCVD)or LDL >qf=686 mg/dL, use a high-intensity statin (40-80 mg [...] MD CHEMISTRY ORDERABLE S Performing Organization Address [facility] Co de Phone Number [facility] [place] [address] * TSH Roark (10/30/2023 10:05 PM EDT) Thyroid Stimulating Hormone 3.35 0.27 - 4.20 mcIU/mL [facility] Comment: Reference Interval (mcIU/mL): Females: ??First Trimester: 0.23-3.88 ??Second Trimester: 0.22-3.90 ??Third Trimester: 0.44-4.66 Blood 10/30/2023 10:0 5 PM EDT 10/30/2023 10:12 PM EDT Narrative Resulting Agency Comment Spec In Lab Rosa Cornejo MD CHEMISTRY ORDERABLE S Performing Organization Address [facility] Co de Phone Number [facility] [place] [address] * pro-Brain Natriuretic Peptide (10/30/2023 10:05 PM EDT) NT-proBNP 375 <=449 pg/mL [facility] Blood 10/30/2023 10:0 5 PM EDT 10/30/2023 10:12 PM EDT Narrative Resulting Agency Comment Spec In Lab Rosa Cornejo MD CHEMISTRY ORDERABLE S [facility] [place] [address] * (ABNORMAL) Comprehensive metabolic panel (non-fasting) (10/30/2023 10:05 PM EDT) Glucose 121 65 - 199 mg/dL WHITE [...] MD CHEMISTRY ORDERABLE S Performing Organization Address City/[facility]/ZIP Co de Phone Number [facility] [place] [address] * Phosphorus (10/30/2023 10:05 PM EDT) Phosphorus 3.3 2.5 - 4.5 mg/dL [facility] Blood 10/30/2023 10:0 5 PM EDT 10/30/2023 10:12 PM EDT Narrative Resulting Agency Comment Spec In Lab Rosa Cornejo MD CHEMISTRY ORDERABLE S Performing Organization Address City/[facility]/ZIP Co de Phone Number [facility] [place] [address] * Magnesium (10/30/2023 10:05 PM EDT) Magnesium 0.86 0.69 - 1.07 mmol/L [facility] Blood 10/30/2023 10:0 5 PM EDT 10/30/2023 10:12 PM EDT Narrative Resulting Agency Comment Spec In Lab Rosa Cornejo MD CHEMISTRY ORDERABLE S Performing Organization Address City/[facility]/ZIP Co de Phone Number [facility] [place] [address] * (ABNORMAL) Troponin (10/30/2023 10:05 PM EDT) [facility] Troponin-T, High Sensitivity 214(H) <=14 ng/L WHITE [...] value can be found in the [facility] Test Catalog Troponin - [facility] Test Catalog Reference: Fourth Jefferson Definition of Myocardial Infarction. Journal of the [place] College [employer]iology 2018;72:0896-5071 Blood 10/30/2023 10:0 5 PM EDT 10/30/2023 10:12 PM EDT Narrative Resulting Agency Comment Spec In Lab Rosa Cornejo MD CHEMISTRY ORDERABLE S [facility] [place] [address] * EKG 12 Lead (10/30/2023 8:21 PM EDT) [facility] Ventricular rate 49 BPM MUSE SYSTEM Atrial Rate 49 BPM MUSE SYSTEM P-R Interval 230 ms MUSE SYSTEM QRS Duration 96 ms MUSE SYSTEM Q-T Interval 526 ms MUSE SYSTEM QTC Calculated (Bezet) 475 ms MUSE SYSTEM Calculated P [place] 98 degrees MUSE SYSTEM Calculated R [place] -48 degrees MUSE SYSTEM Calculated T [place] -51 degrees MUSE SYSTEM INTERPRETATION Sinus bradycardia with 1st degree A-V block Incomplete right bundle branch block Left anterior fascicular block Moderate voltage criteria for LVH, may be normal variant ( R in aVL , Riggins product ) T wave abnormality, consider inferior [...] Jason Jimenes RN)1455 (Given - Provider: Jean lOiveira RN) heparin (porcine) (1,000 units/mL) injection (CANCELED) [...] last 24 to 72 hours., Routine 1333 ([facility] Hold - Provider: Admin Adt - Reason: Transfer to a Procedural area)1548 ([facility] Unhold - Provider: Admin Adt) sodium chloride 0.9 % (flush) (BD PosiFlush Normal Saline 0.9) flush 5-20 mL 5-20 mL, Intravenous, EVERY 1 MIN PRN, Starting on 10/30/23 at 2208, Until Amna 11/03/23 at 1913, flush, Flush pertains to all indwelling lines. Flush per protocol found in the job aid using the link provided on this medication record., Routine 1333 ([facility] Hold - Provider: Admin Adt - Reason: Transfer to a Procedural area)1548 ([facility] Unhold - Provider: Admin Adt) documented in this encounter Additional Health Concerns Infection Onset Date Last Indicated Resolved Time Rule Out Respiratory 11/02/2023 11/02/2023 024 12:22 PM EDT Rule Out COVID-19 11/02/2023 11/02/2023 11/02/2023 12:22 PM EDT documented as of this encounter Care Teams Store Merchandiser Relationship Specialty Start Date End Date Rosie Mathews MD [address] [place] [address] PCP - General Family Medicine 11/25/17 11/23/23 documented as of this encounter
--- OUTSIDE RECORDS SUMMARY | 2024-03-02 10:35 | XMS_ITS | Clinical Summary ---
Author Organization [facility] Address [facility] [place] [address] Care Team Providers Care Trauma Coordinator Name Role Phone Masood Pierson MD Primary Care Provider [phone] Allergies Active Allergy Reactions Criticality Noted Date [...] Care Team Description 02/27/2024 Telephone Cardiology at [place] [address] [place] [address] Izaiah Meyer MD 02/24/2024 11:10 PM EDT Ancillary Procedure Radiology Library at [facility] [address] Masood Pierson MD 02/24/2024 External Results Transfer Center [address] [place] [address] 12/16/2023 Telephone Cardiology at [address] [place] [address] Izaiah Meyer MD from Last 3 Months Social History Tobacco Use Types Packs/Day Years Used Date Smoking Tobacco: Former Smokeless Tobacco: Never Alcohol Use Standard Drinks/Week Comments Not Currently 0 (1 standard drink = 0.6 oz pur e alcohol) [facility] Utilities Answer Date Recorded In the past 12 months has th e [employer], gas, oil, or water [employer] threatened to shut off services in your [...] AM EDT Office Visit Cardiology at [address] [place] [address] Izaiah Meyer MD [facility] [address] Health Maintenance Due Date Last Done Comments [...] [facility] Co de Phone Number [place], [place] from Last 3 Months Advance Directives * Attempt Cardiopulmonary Resuscitation - Inpatient (Latest Code Status on File) Date Activated Date Inactivated Comments 10/30/2023 9:58 PM 11/03/2023 7:13 PM Question Answer Comments Code Status decision made by: Patient Care Teams Trauma Coordinator Relationship Specialty Start Date End Date Masood Pierson MD [address] [place], [place] [address] PCP - General Family Medicine 11/24/23
--- OUTSIDE RECORDS SUMMARY | 2024-03-02 10:35 | XMS_ITS | Encounter Summary ---
Author Organization [facility] Address [facility] [place] [address] Care Team Providers Care Export Administrator Name Role Phone Rosie Mathews MD Primary Care Provider [phone] Encounter Details Date Type Department Care Team (Late st Contact Info) Description 11/18/2023 External Results Administration [place] [address] Social History Tobacco Use Types Packs/Day Years [...] AM EDT Office Visit Cardiology at [address] [phone] Izaiah Meyer MD [facility] [place] [address] documented as of this encounter Procedures Procedure Name Priority Date/Time Associated Diagnosis Comments ECG SCAN Routine 11/18/2023 4:50 PM EDT documented in this encounter Results * Scan Doc: ECG (11/18/2023 4:50 PM EDT) Historical Provider MEDIA MGR SCAN EX T ORDR/RSLT documented in this encounter Visit Diagnoses Not on filedocumented in this encounter Care Teams Export Administrator Relationship Specialty Start Date End Date Rosie Mathews MD [address] [place] [address] PCP - General Family Medicine 11/25/17 11/23/23 documented as of this encounter
--- OUTSIDE RECORDS SUMMARY | 2024-03-02 10:35 | XMS_ITS | Encounter Summary ---
Author Organization [facility] Address [facility] [place] [address] Care Team Providers Care Dairy Truck Driver Name Role Phone Masood Pierson MD Primary Care Provider [phone] Encounter Details Date Type Department Care Team (Late st Contact Info) Description 12/16/2023 Telephone Cardiology at [address] [place] [address] Izaiah Meyer MD [facility] [place] [address] Social History Tobacco Use Types Packs/Day Years Used Date Smoking Tobacco: Former Smokeless Tobacco: Never Alcohol Use Standard Drinks/Week Comments Not Currently 0 (1 standard drink = 0.6 oz pur e alcohol) [facility] Utilities Answer Date Recorded In the past 12 months has [employer] electric, gas, oil, or water [employer] threatened to shut off services in [...] RN - 12/16/2023 11:25 AM EDT Denise, [facility] Cardiac chair pad maker, called to report that at today's session [...] AM EDT Office Visit Cardiology at [address] [place] [address] Izaiah Meyer MD [facility] [place] [address] documented as of this encounter Visit Diagnoses Not on filedocumented in this encounter Care Teams Dairy Truck Driver Relationship Specialty Start Date End Date Masood Pierson MD [address] [place] [address] PCP - General Family Medicine 11/24/23 documented as of this encounter
--- OUTSIDE RECORDS SUMMARY | 2024-03-02 10:35 | XMS_ITS | Encounter Summary ---
Author Organization [facility] Address [facility] [place] [address] Care Team Providers Care System Planning Engineer Name Role Phone Rosie Mathews MD Primary Care Provider [phone] Encounter Details Date Type Department Care Team (Late st Contact Info) Description 11/18/2023 Telephone Cardiology at [address] [address] Cheryl Guzman MD [facility] [place] [address] Social History Tobacco Use Types Packs/Day Years Used Date Smoking Tobacco: Former Smokeless Tobacco: Never Alcohol Use Standard Drinks/Week Comments Not Currently 0 (1 standard drink = 0.6 oz pur e alcohol) [facility] Utilities Answer Date Recorded In the past 12 months has e electric, gas, oil, or water [employer] threatened to shut off services in your [...] in a intermediate (including now)? No 11/01/2023 IPV Inpatient Questions [...] Hospital Past Medical History: HTN HLD NSTEMI ([facility] 11/02, status-post revasc) Presenting Symptoms per OSH: Lyla Goodrich is a 83 y.o. woman who presents to [facility] with an episode of chest pain. Recent admission to [facility] with NSTEMI status-post PCI to the prox-RCA [...] today's values. RCA was described as a DIGITAL MARKETING APPRENTICE. Recommend admission for observation to assess for [...] AM EDT Office Visit Cardiology at [address] [phone] Izaiah Meyer MD [facility] [place] [address] documented as of this encounter Visit Diagnoses Not on filedocumented in this encounter Care Teams System Planning Engineer Relationship Specialty Start Date End Date Rosie Mathews MD [address] [place] [address] PCP - General Family Medicine 11/25/17 11/23/23 documented as of this encounter
--- OUTSIDE RECORDS SUMMARY | 2024-03-02 10:35 | XMS_ITS | Encounter Summary ---
Author Organization [facility] Address [facility] [place] [address] Care Team Providers Care Electronics Engineering Technologist Name Role Phone Rosie Mathews MD Primary Care Provider [phone] Reason for Visit * Reason Onset Date Comments Referral 11/03/2023 Coronary Artery Disease 11/03/2023 Encounter Details Date Type Department Care Team (Late st Contact Info) Description 11/03/2023 Telephone Cardiology at [address] [address] Andressa Machado, parking enforcement manager; Coronary Artery Disease Social History Tobacco Use Types Packs/Day Years Used Date Smoking Tobacco: Former Smokeless Tobacco: Never Alcohol Use Standard Drinks/Week Comments Not Currently 0 (1 standard drink = 0.6 oz pur e alcohol) [facility] Utilities Answer Date Recorded In the past 12 months has e [employer], gas, oil, or water [employer] threatened to shut off services in your [...] [facility] [address] [place] [address] Lyla was referred to this Cardiology clinic in [place] for post cardiac cath 10/31 for STEMI follow up as part of her discharge plan from [facility] documented in this encounter Plan of Treatment Upcoming Encounters Date Type Department Care Team (Late st Contact Info) Description 03/29/2024 11:20 AM EDT Office Visit Cardiology at [address] [place] [address] Izaiah Meyer MD [facility] [place] [address] documented as of this encounter Visit Diagnoses Not on filedocumented in this encounter Care Teams Electronics Engineering Technologist Relationship Specialty Start Date End Date Rosie Mathews MD [address] [place] [address] PCP - General Family Medicine 11/25/17 11/23/23 documented as of this encounter
--- OUTSIDE RECORDS SUMMARY | 2024-03-02 10:35 | XMS_ITS | Encounter Summary ---
Author Organization [facility] Address [facility] [place] [address] Care Team Providers Care Mail Messenger Contractor Name Role Phone Masood Pierson MD Primary Care Provider [phone] Encounter Details Date Type Department Care Team (Late st Contact Info) Description 02/27/2024 Telephone Cardiology at [address] [place] [address] Izaiah Meyer MD [facility] [place] [place] [address] Social History Tobacco Use Types Packs/Day Years Used Date Smoking Tobacco: Former Smokeless Tobacco: Never Alcohol Use Standard Drinks/Week Comments Not Currently 0 (1 standard drink = 0.6 oz pur e alcohol) [facility] Utilities Answer Date Recorded In the past 12 months has [employer] electric, gas, oil, or water [employer] threatened to shut off services in [...] 3:30 PM EDT Lyla was seen at [facility] this past Tuesday for chest pain and returned to the ED Tuesday for back pain.Per patient both times it was determined she was having no cardiac issues but she was told to let her solar engineer know. At present she is not having [...] AM EDT Office Visit Cardiology at [address] [address] Izaiah Meyer MD [facility] [place] [address] documented as of this encounter Visit Diagnoses Not on filedocumented in this encounter Care Teams Mail Messenger Contractor Relationship Specialty Start Date End Date Masood Pierson MD [address] [place] [address] PCP - General Family Medicine 11/24/23 documented as of this encounter
--- OUTSIDE RECORDS SUMMARY | 2024-03-02 10:35 | XMS_ITS | Encounter Summary ---
Author Organization [facility] Address [facility] [place] [address] Care Team Providers Care Lining Baster Name Role Phone Masood Pierson MD Primary Care Provider [phone] Encounter Details Date Type Department Care Team (Late st Contact Info) Description 02/24/2024 11:10 PM EDT Ancillary Procedure [place] [phone] Masood Pierson MD [address] [place], [place] [id number] Social History Tobacco Use Types Packs/Day Years Used Date Smoking Tobacco: Former Smokeless Tobacco: Never Alcohol Use Standard Drinks/Week Comments Not Currently 0 (1 standard drink = 0.6 oz pur e alcohol) [facility] Utilities Answer Date Recorded In the past 12 months has [employer], gas, oil, or water company threatened [...] 11:20 AM EDT Office Visit Cardiology at [address] [phone] Izaiah Meyer MD [facility] [place] [address] documented as of this encounter Procedures Procedure Name Priority Date/Time Associated Diagnosis Comments FILM LIBRARY STORAGE ONLY CT CHEST Routine 02/24/2024 11:05 PM EDT documented in this encounter Results * Film Library- Storage Only CT Chest (02/24/2024 11:05 PM EDT) Narrative RAD - 02/24/2024 11:05 PM EDT This exam is auto-finalizing. It's purpose is for storage only. Masood Pierson MD [facility] FILM LIBRARY ORD ERABLES DH [place], [place] documented in this encounter Visit Diagnoses Not on filedocumented in this encounter Care Teams Lining Baster Relationship Specialty Start Date End Date Masood Pierson MD [address] [place] [address] PCP - General Family Medicine 11/24/23 documented as of this encounter
--- OUTSIDE RECORDS SUMMARY | 2024-03-02 10:35 | XMS_ITS | Encounter Summary ---
Author Organization [facility] Address [facility] [place] [address] Care Team Providers Care Editorial Clerk Name Role Phone Masood Pierson MD Primary Care Provider [phone] Encounter Details Date Type Department Care Team (Latest Contact Info) Description 11/24/2023 Travel Social History Tobacco Use Types Packs/Day Years Used Date Smoking Tobacco: Former Smokeless Tobacco: Never Alcohol Use Standard Drinks/Week Comments Not Currently 0 (1 standard drink = 0.6 oz pur e alcohol) [facility] Utilities Answer Date Recorded In [...] 11:20 AM EDT Office Visit Cardiology at [address] [address] Izaiah Meyer MD [facility] [place] [address] documented as of this encounter Visit Diagnoses Not on filedocumented in this encounter Care Teams Editorial Clerk Relationship Specialty Start Date End Date Masood Pierson MD [address] [place] [address] PCP - General Family Medicine 11/24/23 documented as of this encounter
--- OUTSIDE RECORDS SUMMARY | 2024-03-02 10:35 | XMS_ITS | Encounter Summary ---
Author Organization Replaced By [facility] Address [facility] [place] [address] Care Team Providers Care Bow Maker Name Role Phone Masood Pierson MD Primary Care Provider [phone] Reason for Visit * Reason Comments Establish Care Coronary Artery Disease Encounter Details Date Type Department Care Team (Latest Contact Info) Description 11/24/2023 10:40 AM EDT Office Visit Cardiology at [address] [place] [address] Izaiah Meyer MD [facility] [place] [address] ASCVD (arteriosclerotic cardiovascular disease); Cardiomyopathy, ischemic; Ascending aorta dilatation; Hyperpiesia Social History Tobacco Use Types Packs/Day Years Used Date Smoking Tobacco: Former Smokeless Tobacco: Never Alcohol Use Standard Drinks/Week Comments Not Currently 0 (1 standard drink = 0.6 oz pur e alcohol) [facility] Utilities Answer Date Recorded In the [...] y.o. female. HPI: 83 f [facility] cardiovascular care. She has a [...] rehab. [facility] SBP very well controlled at home No [...] AM EDT Office Visit Cardiology at [address] [place] [phone] Izaiah Meyer MD [facility] [place] [address] documented as of this encounter Visit Diagnoses Diagnosis ASCVD (arteriosclerotic cardiovascular disease) Unspecified cardiovascular disease Cardiomyopathy, ischemic Other specified forms of chronic ischemic heart disease Ascending aorta dilatation Thoracic aortic ectasia Hyperpiesia Unspecified essential hypertension documented in this encounter Care Teams Bow Maker Relationship Specialty Start Date End Date Masood Pierson MD [address] [place] [address] PCP - General Family Medicine 11/24/23 documented as of this encounter
--- OUTSIDE RECORDS SUMMARY | 2024-03-02 10:35 | XMS_ITS | Encounter Summary ---
Author Organization [facility] Address [facility] [place] [address] Care Team Providers Care Team Sports Sales Associate Name Role Phone Masood Pierson MD Primary Care Provider [phone] Encounter Details Date Type Department Care Team (Late st Contact Info) Description 02/24/2024 External Results Transfer Center [facility] [place] [phone] Social History Tobacco Use Types Packs/Day Years Used Date Smoking Tobacco: Former Smokeless Tobacco: Never Alcohol Use Standard Drinks/Week Comments Not Currently 0 (1 standard drink = 0.6 oz pur e alcohol) [facility] Utilities Answer Date Recorded In the past 12 months has [employer], gas, oil, or water [employer] threatened to shut off services in your [...] in a correction (including now)? No 11/01/2023 DH IPV Inpatient [...] AM EDT Office Visit Cardiology at [address] [place] [address] Izaiah Meyer MD [facility] [place] [address] documented as of this encounter Procedures Procedure Name Priority Date/Time Associated Diagnosis Comments MISC EXTERNAL CARDIOLOGY RESULT Routine 02/24/2024 11:10 PM EDT documented in this encounter Results * External Cardiology Result (02/24/2024 11:10 PM EDT) Anatomical Region Laterality Modality Other Historical Provider EXTERNAL CARDIOLO GY RESULT documented in this encounter Visit Diagnoses Not on filedocumented in this encounter Care Teams Team Sports Sales Associate Relationship Specialty Start Date End Date Masood Pierson MD [address] [place] [address] PCP - General Family Medicine 11/24/23 documented as of this encounter
--- OUTSIDE RECORDS SUMMARY | 2024-03-02 10:36 | XMS_ITS | Encounter Summary ---
Author Organization Formerly [facility] [place] [address] Care Team Providers Care Magnesium Mill Operator Name Role Phone Rosie Mathews MD Primary Care Provider [phone] Reason for Visit * Auth/Cert (Routine) Specialty Diagnoses / Procedures Referred By Contac t Referred To Contact Diagnoses Unstable angina Chest pain NSTEMI Procedures CARDIAC CATHETERIZATION Rosa Dewey MD [facility] [place] [address] [facility] Referral ID Status Reason Start Date Expiration Date Visits Re quested Visits Authorized [id number] 1 1 Encounter Details Date Type Department Care Team (Late st Contact Info) Description 10/30/2023 4:25 PM EDT - 10/30/2023 5:27 PM EDT Surgery [place] [address] Rosa Dewey MD [facility] [address] [place], [place] [id number] CARDIAC CATHETERIZATION Social History Tobacco Use Types Packs/Day Years Used Date Smoking Tobacco: Former Smokeless Tobacco: Never Alcohol Use Standard Drinks/Week Comments Not Currently 0 (1 standard drink = 0.6 oz pur e alcohol) [facility] Inpatient Questions Answer Date Recorded Does Anyone [...] for hypertension and hyperlipidemia who presented to [facility] as a transfer from [facility] as a possible STEMI alert with acute onset chest pain. The patient reports that her symptoms initially began on Tuesday when she was walking to [facility] and experienced bilateral arm heaviness while walking with no other symptoms. Then, this afternoon shereports developing bilateral achy shoulder pain and nonradiating substernal left-sided chest pressure that was 7/10 in severity after coming home from [place]ats[place]. The patient denies any associated fevers, chills, diaphoresis, lightheadedness/dizziness, syncope/presyncope, dyspnea (either at rest or on exertion), palpitations, orthopnea, or PND. The patient subsequently presented to [facility] as a walk-in for further evaluation. [...] on repeat, her JAMIE resolved. Cardiology at [facility] was consulted for transfer; the patient was loaded with aspirin 324 mg and ticagrelor 180 mg, started on a heparin drip, and given nitroglycerin with improvement in chest pain. Upon arrival to [facility], the patient was taken directly to the Senior Technical Recruiter. Two lesions were discovered: one in the prox RCA (felt to almost be a BUSINESS ASSOCIATE but they were able to wire, balloon, [...] dose administered prior to arrival in the assistant laboratory director. Recommended anti-platelet/anti-thrombotic regimen: Continue aspirin [...] and low lung volumes. Findings similar to liquor gallery operator radiograph from CT 10/30/2023. Pending Studies [...] 10:40 AM Izaiah Meyer MD Cardiology at [place] Arrive at: [facility] [address] [phone] Future Orders Complete By Expires Referral to Cardiac Rehab [[id number] Custom] As directed Process Instructions: If no progress note charted, please enter Clinical details in comments. Scheduling Instructions: Questions: My question or request is: STEMI. Cardiac rehab at [facility]. Referral to Home Health [[id number] Custom] As directed Process Instructions: If no progress note charted, please enter Clinical details in comments. Scheduling Instructions: Comments: Please evaluate Adin Santos for admission to Home Health. [address] [place] [address] [place] [phone] (home) Date of : 1940 Inpatient DOCUMENTATION FOR VNA SERVICES (INCLUDING THOSE PATIENTS WITH MEDICARE COVERAGE REQUIRING HOME VNA SERVICES AND/OR HOSPICE SERVICES) PATIENT'S LOCATION: Adin Santos [address] [facility] [place] [phone] (home) Cell: Telephone Information: Thread Cutter Tender's Name: self In discussion with the attending physician, it is certified that this patient is under their care and that they, or a Nurse Practitioner, Clinical Nurse specialist or Physician Animal Bounty Hunter who is working directly with them, had [...] regarding health issues HOME HEALTH CARE AGENCY: [facility] [address] [place] [id number] START OF CARE: within 24-48 hours of [...] Rosie Mathews MD [address] / [facility] [address] . All A agencies which cover the [...] MD / Dr. Masood Pierson [address] [place] [address] 11/09/23 1:55 PM arrival for 2:10 PM appointment Performance Analyst: Izaiah Meyer MD [address] [place] [address] , 11/24/2023 10:40 AM Your Inpatient Medical Team at [facility] Name(s) of your inpatient provider(s): Attending physician: Rosa Hugo MD Resident physicians: Emile Robles MD; Elmer Tamez MD If you have non-emergent questions, prior to your follow-up visit call: Tuesday-Tuesday between the hours of 8AM-5PM please call the Cardiology Clinic [phone] to speak with a nurse. All other hours please call the Hospital Dramatic Coach [phone] and ask to speak to the head boys golf coach on-call. Your Primary Care Provider Rosie Mathews MD [phone] For questions regarding this document or issues relating to this hospitalization on the Medical Service, please contact your inpatient physician through the [facility] Dramatic Coach . Issues afterhours and on weekends will be handled by the Performance Analyst staff on-call. Associated attestation - Rosa Hugo [...] MD / Dr. Masood Pierson [address] [place] [address] 11/09/23 1:55 PM arrival for 2:10 PM appointment Performance Analyst: Izaiah Meyer MD [address] [place] [address] , 11/24/2023 10:40 AM Your Inpatient Medical Team at [facility] Name(s) of your inpatient provider(s): Attending physician: Rosa Hugo MD Resident physicians: Emile Robles MD; Elmer Tamez MD If you have non-emergent questions, prior to your follow-up visit call: Tuesday-Tuesday between the hours of 8AM-5PM please call the Cardiology Clinic [phone] to speak with a nurse. All other hours please call the Hospital Dramatic Coach [phone] and ask to speak to the head boys golf coach on-call. Your Primary Care Provider Rosie Mathews MD [phone] documented in this encounter Medications at Time [...] for hypertension and hyperlipidemia who presented to [facility] as a transfer from [facility] as a possible STEMI alert with [...] for hypertension and hyperlipidemia who presented to [facility] as a transfer from [facility] as a possible STEMI alert with [...] Resident on Cardiology Service Cardiology S1 (Pager [phone]) Note written in conjunction with Claudio Perla [facility] Medical Student, MS3 Associated attestation - [...] Nirmala Webb - 11/01/2023 11:25 AM EDT Forge Press Operator Encounter Note Patient Name: Adin Santos : [id number] MR#: [id number] Admit Date: 10/30/2023 5:11 PM Hospital Day 2 days Narrative: Self initiated visit to patient for Spiritual support in a regular unit rounds. Assessment: Patient is in the bathroom at the time of this visit. Not a good time for Compensation Vice President visit. Intervention and Outcome: An attempted visit [...] for hypertension and hyperlipidemia who presented to [facility] as a transfer from [facility] as a possible STEMI alert with [...] and low lung volumes. Findings similar to liquor gallery operator radiograph from CT 10/30/2023. Scheduled Medications: [MAR [...] for hypertension and hyperlipidemia who presented to [facility] as a transfer from [facility] as a possible STEMI alert with [...] Resident on Cardiology Service Cardiology S1 (Pager [phone]) Note written in conjunction with Claudio Perla [facility] Medical Student, MS3 Associated attestation - oRsa Hugo MD - 11/01/2023 2:24 PM EDT [...] for hypertension and hyperlipidemia who presented to [facility] as a transfer from [facility] as a possible STEMI alert with acute onset chest pain. Active Problems: Active Hospital Problems Diagnosis Unstable angina Resolved Hospital Problems No resolved problems to display. 24 hr events: - Cath'd yesterday with lesion in the proximal RCA (initially thought it was BUSINESS ASSOCIATE but they were ableto wire, balloon and [...] and low lung volumes. Findings similar to liquor gallery operator radiograph from CT 10/30/2023. TTE (10/30): [...] for hypertension and hyperlipidemia who presented to [facility] as a transfer from [facility] as a possible STEMI alert with [...] Resident on Cardiology Service Cardiology S1 (Pager [phone]) Note written in conjunction with Claudio Perla [facility] Medical Student, MS3 Associated attestation - [...] PCP: Rosie Mathews MD PCP phone number: [phone] Date of Admission: 10/30/2023 ( Hospital Day 0 days ) Attending:Rosa Cornejo MD ID: Adin Santos is a 83 y.o. female PMH significant for hypertension and hyperlipidemia who presented to [facility] as a transfer from [facility] as a possible STEMI alert with acute onset chest pain. The patient reports that her symptoms initially began on Tuesday when she was walking to [facility] and experienced bilateral arm heaviness while walking with no other symptoms. Then, this afternoon shereports developing bilateral achy shoulder pain and nonradiating substernal left-sided chest pressure that was 7/10 in severity after coming home from [place]ats[place]. The patient denies any associated fevers, chills, diaphoresis, lightheadedness/dizziness, syncope/presyncope, dyspnea (either at rest or on exertion), palpitations, orthopnea, or PND. The patient subsequently presented to [facility] as a walk-in for further evaluation. [...] on repeat, her JAMIE resolved. Cardiology at [facility] was consulted for transfer; the patient was loaded with aspirin 324 mg and ticagrelor 180 mg, started on a heparin drip, and given nitroglycerin with improvement in chest pain. Upon arrival to [facility], the patient was taken directly to the Senior Technical Recruiter. 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 Findings similar to liquor gallery operator radiograph from CT 10/30/2023. Assessment & Plan: Adin Santos is a 83 y.o. female PMH significant for hypertension and hyperlipidemia who presented to [facility] as a transfer from [facility] as a possible STEMI alert with [...] with HTN HLD transferred with chest from [facility]. BP 217/68, HR 71 EKG [...] information for follow-up Home Health & H[facility]ice, [place] [address] TANESHA BOYCE confirmed with Brittany CARVAJAL that [...] MOVING FORWARD: Monitor Tele, control BP, monitor assistant laboratory director sites, D/C Planning INDIVIDUALIZED FALL [...] in an outpatient cardiac rehabilitation program at [facility] was discussed. Patient agrees to [...] and above on RA. PT went to assistant laboratory director today. Left fem site oozed [...] MOVING FORWARD: Monitor Tele, control BP, monitor assistant laboratory director sites, D/C Planning INDIVIDUALIZED FALL [...] Admitted From: Transfer from another hospital Location: [facility] Reason for Hospitalization: chest pain [...] 180 days) Any patient receiving care in [place] must abide by [place] law. The hierarchy [...] (i) The agent with financial power of electric meter installer helper or a conservator appointed in accordance [...] has the electric, gas, oil, or water Celeno threatened to shut off services in your [...] seat Home Address confirmed as: [address] [facility] [place] [address] Social & Family Supports: All names listed below confirmed with patient as current and correct Extended Emergency Contact Information Primary Emergency Contact: Iris Downing Address: [address] [place], [place] [address] [place] [address] Mobile Relation: Child Secondary Emergency Contact: Karen More Address: [address] [facility] Mobile Relation: Child Current Care Provided by: self Provides Primary Care For: no one Caregiver if needed: child(emmanuel), adult Quality of Family relationships: involved, supportive Community Resources being provided currently: other (see comments) (receives [facility] services at home (1xweekly)) Behavioral [...] Insurance: N/A Prescription Coverage: Yes Preferred Pharmacy: [facility] [place], [place] - [address] [place] [address] [place] [id number] [place] Status: Patient is a : No Primary Care Provider listed: Masood Pierson MD [phone] Patient/Caregiver Goals of Treatment: home when MR Potential Needs for Transition of Care: home health care Agency Referrals: Not Applicable I have met with the patient to: discuss discharge planning needs. provide the [facility], Office of Care Management letter from the Product Coordinator pertaining to rehab referrals. provide a letter describing our affiliations within the [facility] and educate about their right to choose where referrals are sent. provide a list of Home Health Agencies / Durable Medical Equipment vendors which serve their preferred geographic area. provided patient with CMS Star Quality Rating handout. They have requested referrals to: [facility] [address] [place] [address] Note routed to a Director Of Investigations who will communicate referrals to facilities and [...] BP, NPO at MD for cath, monitor assistant laboratory director sites, D/C Planning INDIVIDUALIZED FALL [...] 11:20 AM EDT Office Visit Cardiology at [address] [address] Izaiah Meyer MD [facility] [place] [address] Scheduled Referrals Name Type Priority Associated Diagnoses [...] 3:46 AM EDT) Neutrophil % 63.3 % [facility] Neutrophil Absolute 5.28 1.70 - 6.10 x10(3)/mc L [facility] Lymph % 15.2 % [facility] Lymphocytes Abs 1.3 0.9 - 3.2 x10(3)/mc L [facility] Monocyte % 16.9 % [facility] Monocyte Abs 1.4(H) 0.3 - 0.9 x10(3)/mc L [facility] Eos % 3.7 % [facility] Eosinophils Abs 0.3 0.0 - 0.4 x10(3)/mc L [facility] Basophil % 0.5 % [facility] [...] ORDERABLE S [facility] [place] [address] * (ABNORMAL) Hemogram (11/03/2023 3:46 AM EDT) White Blood Cell 8.3 4.0 - 9.5 x10(3)/[facility] Red Blood Cell 3.77(L) 4.00 - 5.21 x10(6)/[facility] Hemoglobin 13.1 11.7 - 15.5 [...] Platelet 181 145 - 357 x10(3)/ L [facility] RDW Standard Deviation 54.7(H) 37.0 - 46.0 [facility] RDW coefficient of variation 14.6(H) 11.5 - 14.1 % [facility] Mean Platelet Volume 11.2 7.6 - 12.9 [facility] NRBC% auto 0.0 % [facility] NRBC Absolute 0.000 0.000 - 0.000 x10(3)/ L [facility] Blood 11/03/2023 3:46 AM EDT 11/03/2023 4:11 AM EDT Narrative Resulting Agency Comment Spec In Lab Qamar Gallardo MD HEMATOLOGY ORDERABLE S Performing Organization Address City/[facility]/ZIP Co de Phone Number [facility] [place] [address] * Phosphorus (11/03/2023 3:46 AM EDT) Phosphorus 3.2 2.5 - 4.5 mg/dL [facility] Comment:result rechecked-KS Blood 11/03/2023 3:46 AM EDT 11/03/2023 4:11 AM EDT Narrative Resulting Agency Comment Spec In Lab Rosa Cornejo MD CHEMISTRY ORDERABLE S Performing Organization Address [facility] [place]/ZIP Co de Phone Number [facility] [address] * Magnesium (11/03/2023 3:46 AM EDT) Magnesium 0.90 0.69 - 1.07 mmol/L [facility] Blood 11/03/2023 3:46 AM EDT 11/03/2023 4:11 AM EDT Narrative Resulting Agency Comment Spec In Lab Rosa Cornejo MD CHEMISTRY ORDERABLE S Performing Organization Address City/[facility]/ZIP Co de Phone Number [facility] [place] [address] * (ABNORMAL) Basic Metabolic Panel (non-fasting) (11/03/2023 3:46 AM EDT) Glucose 105 65 - 199 mg/dL [facility] [...] ORDERABLE S [facility] [address] * EKG 12 Lead (11/02/2023 12:44 PM EDT) Ventricular rate 83 BPM MUSE SYSTEM Atrial Rate 83 BPM MUSE SYSTEM P-R Interval 216 ms MUSE SYSTEM QRS Duration 90 ms MUSE SYSTEM Q-T Interval 384 ms MUSE SYSTEM QTC Calculated (Bezet) 451 ms MUSE SYSTEM Calculated P Roundup 92 degrees MUSE SYSTEM Calculated R Roundup -51 degrees MUSE SYSTEM Calculated T Roundup -33 degrees MUSE SYSTEM INTERPRETATION Sinus rhythm [...] Cells Raw Data, Urine 10(H) <=4 /HPF [facility] Hyaline Casts, Urine 2 0 - 2 /LPF [facility] Comment: Interpret results with caution, microscopic results are from suboptimal specimen volume Clean Catch Urine 11/02/2023 11:40 AM EDT 11/02/2023 12:05 PM EDT Narrative Resulting Agency Comment Spec In Lab Elmer Tamez MD URINE ORDERABLES [facility] [address] * (ABNORMAL) Urinalysis with reflex Culture (11/02/2023 [...] HOSPITAL LABORATORY Leukocytes, Urine Dipstick Small(A) Negative [facility] Appearance, Urine Dipstick Cloudy(A) Clear [facility] Specific [place] Urine Automated >=1.030(A) 1.005 - 1.030 [facility] Color, Urine Dipstick Dark Yellow Yellow [facility] Reflex to Culture Yes [facility] Clean Catch Urine 11/02/2023 11:40 AM EDT 11/02/2023 12:04 PM EDT Narrative Resulting Agency Comment Spec In Lab Rosa Hugo MD URINE ORDERABLES [facility] [place] [address] * Respiratory Panel PCR (11/02/2023 10:15 AM EDT) Respiratory Panel Source GARMENT CUTTER Swab [facility] Respiratory Panel PCR Negative Negative [facility] Comment: Respiratory Panels are performed on the Storspeed, using multiplexed PCR nucleic acid detection. ??Negative [...] performed using the BioFire Respiratory Panel 2.1 (Pictorama) as authorized by the FDA issued Emergency Use Authorization (EUA). This panel also tests for multiple other viral and bacterial pathogens. This assay is intended for In-vitro Diagnostic (IVD) use with nasopharyngeal swabs in viral transport media. The assay is performed based on the instructions for use and additional guidance provided by the FDA. Testing is performed in laboratories within the [facility], each of which is certified under [...] fact sheets at the following FDA website: https://www.fda.gov/medical-devices/uajbxehopds-toypkjd-5401-ycdfl-97-hekahtgkt- use-a nuiobhxamwwoy-dtggozq-yyyjidq/zovap-rottlaqrxpv-ecco Human Metapneumovirus Not Detected Not Detected [facility] [...] ERAL ORDERABLES [facility] [place] [address] * XR Chest One View (11/02/2023 2:51 AM EDT) WORKSTATION ID [id number] DH RAD Anatomical Region Laterality Modality Chest [...] who have questions please contact the health medical care manager that requested your imaging first. ? Electronically signed by: Omaira Tran MD, [facility] ([phone]), at 11/02/2023 4:56 AM Narrative 11/02/2023 4:56 [...] patients who have questions please contactthe health medical care manager that requested your imaging first. Electronically signed by: Omaira Tran MD, [facility]([phone]), at 11/02/2023 4:56 AM Rosa Hugo MD IMG DX ORDERABLES * (ABNORMAL) Differential, Automated (11/02/2023 12:35 AM EDT) Neutrophil % 76.5 % [facility] Neutrophil Absolute 7.69(H) 1.70 - 6.10 x10(3)/mc L [facility] Lymph % 8.3 % [facility] Lymphocytes Abs 0.8(L) 0.9 - 3.2 x10(3)/mc L [facility] Monocyte % 12.9 % [facility] Monocyte Abs 1.3(H) 0.3 - 0.9 x10(3)/mc L [facility] Eos % 1.4 % [facility] Eosinophils Abs 0.1 0.0 - 0.4 x10(3)/mc L [facility] Basophil % 0.4 % [facility] [...] Absolute 0.05(H) 0.00 - 0.04 x10(3)/ L [facility] Blood 11/02/2023 12:3 5 AM EDT 11/02/2023 12:43 AM EDT Narrative Resulting Agency Comment Spec In Lab Qamar Gallardo MD HEMATOLOGY ORDERABLE S [facility] [place] [address] * (ABNORMAL) Hemogram (11/02/2023 12:35 AM EDT) White Blood Cell 10.0(H) 4.0 - 9.5 x10(3)/mc L [facility] NRBC% auto 0.0 % [facility] NRBC Absolute 0.000 0.000 - 0.000 x10(3)/mc L [facility] Blood 11/02/2023 12:3 5 AM EDT 11/02/2023 12:43 AM EDT Narrative Resulting Agency Comment Spec In Lab Qamar Gallardo MD HEMATOLOGY ORDERABLE S [facility] [place] [address] * (ABNORMAL) Phosphorus (11/02/2023 12:35 AM EDT) Phosphorus 1.6(L) 2.5 - 4.5 mg/dL [facility] Blood 11/02/2023 12:3 5 AM EDT 11/02/2023 12:43 AM EDT Narrative Resulting Agency Comment Spec In Lab Rosa Cornejo MD CHEMISTRY ORDERABLE S Performing Organization Address [facility]/ZIP Co de Phone Number [facility] [place] [address] * Magnesium (11/02/2023 12:35 AM EDT) Magnesium 0.87 0.69 - 1.07 mmol/L [facility] Blood 11/02/2023 12:3 5 AM EDT 11/02/2023 12:43 AM EDT Narrative Resulting Agency Comment Spec In Lab Rosa Cornejo MD CHEMISTRY ORDERABLE S Performing Organization Address City/[facility]/ZIP Co de Phone Number [facility] [place] [address] * Basic Metabolic Panel (non-fasting) (11/02/2023 12:35 [...] ORDERABLE S [facility] [place] [address] * Blood culture (11/02/2023 12:35 AM EDT) Blood Culture No growth at 5 days. [facility] Blood 11/02/2023 12:3 5 AM EDT 11/02/2023 1:55 AM EDT Comment:#2 site ukn Narrative Resulting Agency Comment Spec In Lab Rosa Hugo MD MICROBIOLOGY - BLO OD ORDERABLES Performing Organization Address [facility] Co de Phone Number [facility] [place] [address] * Blood culture (11/02/2023 12:15 AM EDT) Blood Culture No growth at 5 days. [facility] Blood 11/02/2023 12:1 5 AM EDT 11/02/2023 1:54 AM EDT Comment:#1site unk Narrative Resulting Agency Comment Spec In Lab Rosa Hugo MD MICROBIOLOGY - BLO OD ORDERABLES Performing Organization Address [facility] Co de Phone Number [facility] [place] [place] [address] * EKG 12 Lead (11/01/2023 10:10 PM EDT) Ventricular rate 139 BPM MUSE SYSTEM Atrial Rate 139 BPM MUSE SYSTEM P-R Interval 168 ms MUSE SYSTEM QRS Duration 84 ms MUSE SYSTEM Q-T Interval 286 ms MUSE SYSTEM QTC Calculated (Bezet) 435 ms MUSE SYSTEM Calculated R Roundup -59 degrees MUSE SYSTEM Calculated T Roundup -27 degrees MUSE SYSTEM INTERPRETATION Mid-RP tachycardia, consider sinus tachycardia or SVT Left axis deviation Moderate voltage criteria for LVH, may be normal variant ( R in aVL , Brave product ) Inferior infarct (cited on or before 01-NOV-2023) Anterolateral infarct (cited on or before 01-NOV-2023) Abnormal ECG When compared with ECG of 01-NOV-2023 15:22, Vent. rate Although rate has increased Serial changes of Anterior infarct Present I personally reviewed the tracing and edited the fellows interpretation Confirmed by fellow MD Bowen Ashley ([id number]) on 11/04/2023 7:57:50 AM Confirmed by MD Carrillo Danette ([id number]) on 11/04/2023 4:32:03 PM MUSE SYSTEM 11/01/2023 10:1 0 PM EDT 11/04/2023 4:32 PM EDT Rosa Cornejo MD ECG ORDERABLES MUSE SYSTEM * (ABNORMAL) Hemogram (11/01/2023 10:06 PM EDT) White Blood Cell 10.4(H) 4.0 - 9.5 x10(3)/[facility] Red Blood Cell 4.11 4.00 - 5.21 x10(6)/[facility]ORY Hemoglobin 14.0 11.7 - 15.5 [...] Platelet 197 145 - 357 x10(3)/ L [facility] RDW Standard Deviation 54.0(H) 37.0 - 46.0 fL [facility] RDW coefficient of variation 14.6(H) 11.5 - 14.1 % [facility] Mean Platelet Volume 11.2 7.6 - 12.9 fL [facility] NRBC% auto 0.0 % [facility] NRBC Absolute 0.000 0.000 - 0.000 x10(3)/ L [facility] Blood 11/01/2023 10:0 6 PM EDT 11/01/2023 10:22 PM EDT Narrative Resulting Agency Comment Spec In Lab Rosa Hugo MD HEMATOLOGY ORDERAB LES Performing Organization Address City/[facility]/ZIP Co de Phone Number [facility] [place] [address] * POCT Glucose (11/01/2023 5:59 PM EDT) [facility] Signature Glucose, POC 104 65 - 199 mg/dL [facility] Comment: Supplemental ranges: <140 mg/dL before meals <180 mg/dL all other times of the day Blood 11/01/2023 5:59 PM EDT 11/01/2023 5:59 PM EDT Rosa Hugo MD POINT OF CARE TEST ORDERABLES Performing Organization Address [facility] Co de Phone Number [facility] [place] [address] * POCT Glucose (11/01/2023 5:35 PM EDT) [facility] Glucose, POC 85 65 - 199 mg/dL [facility] Comment: Supplemental ranges: <140 mg/dL before meals <180 mg/dL all other times of the day Blood 11/01/2023 5:35 PM EDT 11/01/2023 5:35 PM EDT Rosa Hugo MD POINT OF CARE TEST ORDERABLES Performing Organization Address City/[facility] Co de Phone Number [facility] [place] [address] * EKG 12 Lead (11/01/2023 3:22 PM EDT) Ventricular rate 59 BPM MUSE SYSTEM Atrial Rate 59 BPM MUSE SYSTEM P-R Interval 220 ms MUSE SYSTEM QRS Duration 94 ms MUSE SYSTEM Q-T Interval 428 ms MUSE SYSTEM QTC Calculated (Bezet) 423 ms MUSE SYSTEM Calculated P Roundup 76 degrees MUSE SYSTEM Calculated R Roundup -50 degrees MUSE SYSTEM Calculated T Roundup -59 degrees MUSE SYSTEM INTERPRETATION Sinus bradycardia [...] Other Narrative 11/02/2023 4:57 PM EDT ?[facility] ? Cardiac Catheterization/Intervention Report ? Patient Name: Adni Santos ? Procedure Date: 11/01/2023 ? A #: [id number] ? Primary Physician: Rosa Dewey I ? Case #: [id number] ? File Name: [id number] ? Catheterization Order Number: [id number] ? [facility] ? Final Report [place], [place] ? Patient Name: ? Adin M. Goguen ?ID#: ?[id number] ? : ?1940 ? Procedure Date: ? [...] procedure was Urgent. The indication for ?the assistant laboratory director visit is ACS greater than [...] ??A premounted ? 3.50 x 15 mm Durham Fargo (RADHA) was deployed with a maximum ? [...] A premounted 3.50 x 15 mm Andrea Fargo (RADHA) was deployed ? with a maximum [...] dose administered prior to arrival in the assistant laboratory director. ?Recommended anti-platelet/anti-thrombotic regimen: ?Continue aspirin 81 mg daily for indefinitely. ?Continue clopidogrel 75 mg daily for 12 months then stop. ?These recommendations are made at the time of the intervention. Patient ?and provider preferences or a changing clinical situation may require ?modification of this regimen. Consult [facility] Interventional Cardiology for ?questions. ?The [...] Note Rosa Dewey MD - 12/12/2023 [facility] Cardiac Catheterization/Intervention Report Patient Name: Adin Santos Procedure Date: 11/01/2023 A #: [id number] Primary Physician: Rosa Dewey I Case #: [id number] File Name: [id number] Catheterization Order Number: [id number] [facility] FinalReport [place], [place] Patient Name: Adin Santos ID#:[id number] :1940 Procedure Date: November 01, 2023 Case [...] was designated as ASA Class III. [facility]: Vulnerable. Diagnostic Tests: Prior Coronary Angiography: LV ejection fraction within 6 months is 65%. Electrocardiography: EKG was assessed by ECG. EKG was Abnormal. EKG showed other abnormality. Medications Prior to Procedure: Aspirin, Angiotensin II Receptor Rodrick and Statin. Indications for Diagnostic Cath: The priority of the diagnostic procedure was Urgent. The indicationfor the assistant laboratory director visit is ACS greater than [...] 14 atmospheres. Apremounted 3.50 x 15 mm Durham Fargo (RADHA) was deployed with amaximum inflation pressure [...] The lesion was predilated with a 3.00mm [id number] MM balloon with a maximum inflation pressure of 14atmospheres. A premounted 3.50 x 15 mm Durham Fargo (RADHA) wasdeployed with a maximum inflation pressure [...] dose administered prior to arrival in the assistant laboratory director. Recommended anti-platelet/anti-thrombotic regimen: Continue aspirin 81 mg daily for indefinitely. Continue clopidogrel 75 mg daily for 12 months then stop. These recommendations are made at the time of the intervention.Patient and provider preferences or a changing clinical situation mayrequire modification of this regimen. Consult [facility] Interventional Cardiologyfor questions. The 1 [...] * POCT Glucose (11/01/2023 7:06 AM EDT) [facility] Glucose, POC 93 65 - 199 mg/dL [facility] Comment: Supplemental ranges: <140 mg/dL before meals <180 mg/dL all other times of the day Blood 11/01/2023 7:06 AM EDT 11/01/2023 7:06 AM EDT Jean Laboy MD POINT OF CARE TEST O RDERABLES [facility] [place] [address] * (ABNORMAL) Differential, Automated (11/01/2023 3:09 AM EDT) Pathologist [facility] Neutrophil % 63.9 % [facility] Neutrophil Absolute 5.54 1.70 - 6.10 x10(3)/mc L [facility] Lymph % 20.0 % [facility] Lymphocytes Abs 1.7 0.9 - 3.2 x10(3)/mc L [facility] Monocyte % 11.9 % [facility] Monocyte Abs 1.0(H) 0.3 - 0.9 x10(3)/mc L [facility] Eos % 3.2 % [facility] Eosinophils Abs 0.3 0.0 - 0.4 x10(3)/ L [facility] Basophil % 0.5 % [facility] [...] MD HEMATOLOGY ORDERABLE S Performing Organization Address City/State/[facility] Co de Phone Number [facility] [place] [address] * (ABNORMAL) Hemogram (11/01/2023 3:09 AM EDT) White Blood Cell 8.7 4.0 - 9.5 x10(3)/ L [facility] Red Blood Cell 3.72(L) 4.00 - 5.21 x10(6)/mc L [facility] Hemoglobin 12.5 11.7 - 15.5 [...] [facility] NRBC% auto 0.0 % [facility] NRBC Absolute 0.000 0.000 - 0.000 x10(3)/mc L [facility] Blood 11/01/2023 3:09 AM EDT 11/01/2023 3:29 AM EDT Narrative Resulting Agency Comment Spec In Lab Qamar Gallardo MD HEMATOLOGY ORDERABLE S Performing Organization Address City/[facility]/ZIP Co de Phone Number [facility] [place] [address] * Phosphorus (11/01/2023 3:09 AM EDT) Phosphorus 2.5 2.5 - 4.5 mg/dL [facility] Blood 11/01/2023 3:09 AM EDT 11/01/2023 3:29 AM EDT Narrative Resulting Agency Comment Spec In Lab Rosa Cornejo MD CHEMISTRY ORDERABLE S Performing Organization Address City/[facility]/ZIP Co de Phone Number [facility] [address] * Magnesium (11/01/2023 3:09 AM EDT) Magnesium 0.82 0.69 - 1.07 mmol/L [facility] Blood 11/01/2023 3:09 AM EDT 11/01/2023 3:29 AM EDT Narrative Resulting Agency Comment Spec In Lab Rosa Cornejo MD CHEMISTRY ORDERABLE S [facility] [place] [address] * (ABNORMAL) Basic Metabolic Panel (non-fasting) (11/01/2023 [...] ORDERABLE S [facility] [place] [address] * (ABNORMAL) Troponin (10/31/2023 2:46 PM EDT) [...] troponin value can be found in the [facility] Laboratory Test Catalog Troponin - [facility] Laboratory Test Catalog Reference: Fourth [place] Definition of Myocardial Infarction. Journal of the [place] [employer] 2018;72:1653-4687 Blood 10/31/2023 2:46 PM EDT 10/31/2023 2:55 PM EDT Narrative Resulting Agency Comment Spec In Lab Jean Laboy MD CHEMISTRY ORDERABLES Performing Organization Address [facility] Co de Phone Number [facility] [place] [address] * EKG 12 Lead (10/31/2023 1:07 PM EDT) Ventricular rate 54 BPM MUSE SYSTEM Atrial Rate 54 BPM MUSE SYSTEM P-R Interval 218 ms MUSE SYSTEM QRS Duration 92 ms MUSE SYSTEM Q-T Interval 540 ms MUSE SYSTEM QTC Calculated (Bezet) 512 ms MUSE SYSTEM Calculated P Roundup 85 degrees MUSE SYSTEM Calculated R Roundup -44 degrees MUSE SYSTEM Calculated T Roundup -69 degrees MUSE SYSTEM INTERPRETATION Sinus bradycardia [...] Cornejo MD ECG ORDERABLES Performing Organization Address [facility] Co de Phone Number MUSE SYSTEM * (ABNORMAL) Troponin (10/31/2023 11:37 AM EDT) Pathologist [facility] Troponin-T, High Sensitivity 580(H) <=14 ng/L [facility] [...] troponin value can be found in the [facility] Laboratory Test Catalog Troponin - [facility] Test Catalog Reference: [place] Definition of Myocardial Infarction. Journal of the [employer] 2018;72:6927-1706 Blood 10/31/2023 11:3 7 AM EDT 10/31/2023 11:50 AM EDT Narrative Resulting Agency Comment Spec In Lab Rosa Cornejo MD CHEMISTRY ORDERABLE S [facility] [place] [address] * ECHO COMPLETE (10/31/2023 8:52 AM EDT) Anatomical Region Laterality Modality Cardiac Other 10/31/2023 7:57 AM EDT Narrative 10/31/2023 9:45 AM [place]T [address] [place] [address] ? Echocardiogram Report Name: ADIN SANTOS ? Study Date: 10/31/2023 07:57 AMBP: 106/76 mmHg ? Patient Location: [facility] 0481 A : 1940 ? Height: 163 cm ? Account: [id number] Age: 83 yrs ? Weight: 76 kg Gender: Female ?BSA: 1.8 m2 Ordering Physician: ROSA DEWEY Referring Physician: OMAIRA GIRON Performed By: HAFSA Carmichael Reason For Study: STEMI Interpreting Fellow: Raymond Warren. Exam Location: [facility]. Interpretation Summary -The left ventricle is of [...] is no prior echocardiogram for comparison. Procedure Complete-60641. Satisfactory quality. There is sinus bradycardia. Left [...] Note Edgard Wang MD - 10/31/2023 [address] [place] [id number] Echocardiogram Report Name: TREY SANTOSMarco A Catherine Study Date: 407:57 AMBP: 106/76 mmHg Patient Location: [address] : 1940 Height: 163 cm Account: [id number] Age: 83 yrs Weight: 76 kg Gender: Female BSA: 1.8 m2 Ordering Physician: ROSA DEWEY Referring Physician: OMAIRA GIRON Performed By: HAFSA Carmichael Reason For Study: STEMI Interpreting Fellow: Raymond Warren. Exam Location: [facility]. Interpretation Summary -The left ventricle is of [...] is no prior echocardiogram for comparison. Procedure Complete-75531. Satisfactory quality. There is sinus bradycardia. Left [...] EDT) Troponin-T, High Sensitivity 571(H) <=14 ng/L [facility] [...] troponin value can be found in the [facility] Laboratory Test Catalog Troponin - [facility] Test Catalog Reference: [place] Definition of Myocardial Infarction. Journal of the [employer] [employer] 2018;72:4883-2510 Blood 10/31/2023 8:51 AM EDT 10/31/2023 9:12 AM EDT Narrative Resulting Agency Comment Spec In Lab Rosa Cornejo MD CHEMISTRY ORDERABLE S Performing Organization Address City/State/[facility] Co de Phone Number [facility] [place] [address] * CARDIAC CATHETERIZATION (10/31/2023 8:10 AM EDT) Anatomical Region Laterality Modality Other Narrative 11/07/2023 9:42 AM EDT ?[facility] ? Cardiac Catheterization/Intervention Report ? Patient Name: Adin Santos M. ? Procedure Date: 10/30/2023 ? A #: [id number] ? Primary Physician: Rosa Dewey I ? Case #: [id number] ? File Name: [id number] ? Catheterization Order Number: [id number] ? [facility] ? Final Report [place], [place] ? Patient Name: ? Adin M. Goguen ?ID#: ?[id number] ? : ?1940 ? Procedure Date: ? October 30, 2023 ? Case #: ? [id number] ? Room: ? 5 ? Case Physician: [...] procedure was Emergent. The indication for ?the assistant laboratory director visit is ACS less than [...] A premounted 4.00 x 38 mm Andrea Fargo (RADHA) was deployed ? with a maximum [...] dose administered prior to arrival in the assistant laboratory director. ?Recommended anti-platelet/anti-thrombotic regimen: ?Continue aspirin 81 mg daily for 12 months then stop. ?Continue clopidogrel 75 mg daily for indefinitely. ?These recommendations are made at the time of the intervention. Patient ?and provider preferences or a changing clinical situation may require ?modification of this regimen. Consult [facility] Interventional Cardiology for ?questions. ? [...] Procedure Note Rosa Dewey MD - 12/05/2023 [facility] Cardiac Catheterization/Intervention Report Patient Name: Adin Santos Procedure Date: 10/30/2023 A #: [id number] Primary Physician: Rosa Dewey I Case #: [id number] File Name: [id number] Catheterization Order Number: [id number] [facility] FinalReport [place], [place] Patient Name: Adin Santos ID#:[id number] :1940 Procedure Date: October 30, 2023 Case [...] was designated as ASA Class III. The [facility] clinical frailtyscale is 5: Mildly Frail. Diagnostic Tests: Electrocardiography: EKG was assessed by ECG. EKG was Abnormal. EKG showed STDeviation >= 0.5 mm, other abnormality and dynamic EKG changes. Medications Prior to Procedure: Aspirin, Angiotensin II Receptor Rodrick, Beta Rodrick andStatin. Indications for Diagnostic Cath: The priority of the diagnostic procedure was Emergent. Theindication for the assistant laboratory director visit is ACS less than [...] 16atmospheres. A premounted 4.00 x 38 mm Durham Fargo (RADHA) wasdeployed with a maximum inflation pressure [...] dose administered prior to arrival in the assistant laboratory director. Recommended anti-platelet/anti-thrombotic regimen: Continue aspirin 81 mg daily for 12 months then stop. Continue clopidogrel 75 mg daily for indefinitely. These recommendations are made at the time of the intervention.Patient and provider preferences or a changing clinical situation mayrequire modification of this regimen. Consult [facility] Interventional Cardiologyfor questions. Conclusions: * [...] * (ABNORMAL) Troponin (10/31/2023 4:21 AM EDT) [facility] Troponin-T, High Sensitivity 457(H) <=14 ng/L [facility] [...] troponin value can be found in the [facility] Laboratory Test Catalog Troponin - [facility] Test Catalog Reference: Fourth [place] Definition of Myocardial Infarction. Journal of the [place] [employer] 2018;72:9059-6198 Blood 10/31/2023 4:21 AM EDT 10/31/2023 4:30 AM EDT Narrative Resulting Agency Comment Spec In Lab Rosa Cornejo MD CHEMISTRY ORDERABLE S Performing Organization Address City/State/[facility] Co de Phone Number [facility] [place] [address] * (ABNORMAL) Differential, Automated (10/31/2023 3:05 AM EDT) Neutrophil % 71.7 % [facility] Neutrophil Absolute 8.21(H) 1.70 - 6.10 x10(3)/mc L [facility] Lymph % 16.9 % [facility] Lymphocytes Abs 1.9 0.9 - 3.2 x10(3)/mc L [facility] Monocyte % 9.4 % [facility] Monocyte Abs 1.1(H) 0.3 - 0.9 x10(3)/mc L [facility] Eos % 1.3 % [facility] Eosinophils Abs 0.2 0.0 - 0.4 x10(3)/mc L [facility] Basophil % 0.4 % [facility] [...] MD HEMATOLOGY ORDERABLE S Performing Organization Address City/State/[facility] Co de Phone Number [facility] [place] [address] * (ABNORMAL) Hemogram (10/31/2023 3:05 AM EDT) White Blood Cell 11.5(H) 4.0 - 9.5 x10(3)/ L [facility] Red Blood Cell 3.75(L) 4.00 - 5.21 x10(6)/ L [facility] Hemoglobin [...] Platelet 206 145 - 357 x10(3)/ L [facility] RDW Standard Deviation 53.4(H) 37.0 - 46.0 fL [facility] RDW coefficient of variation 14.6(H) 11.5 - 14.1 % [facility] Mean Platelet Volume 11.1 7.6 - 12.9 fL [facility] NRBC% auto 0.0 % [facility] NRBC Absolute 0.000 0.000 - 0.000 x10(3)/mc L [facility] Blood 10/31/2023 3:05 AM EDT 10/31/2023 3:13 AM EDT Narrative Resulting Agency Comment Spec In Lab Qamar Gallardo MD HEMATOLOGY ORDERABLE S Performing Organization Address [facility] Co de Phone Number [facility] [place] [address] * (ABNORMAL) APTT (10/31/2023 3:05 AM EDT) [...] Organization Address [facility] Co de Phone Number [facility] [place] [address] * (ABNORMAL) Prothrombin Time (10/31/2023 3:05 AM [...] Rosa Cornejo MD HEMATOLOGY ORDERABL ES [facility] [place] [address] * (ABNORMAL) Differential, Automated (10/31/2023 1:37 AM EDT) Neutrophil % 71.1 % [facility] Neutrophil Absolute 7.53(H) 1.70 - 6.10 x10(3)/mc L [facility] Lymph % 18.0 % [facility] Lymphocytes Abs 1.9 0.9 - 3.2 x10(3)/mc L [facility] Monocyte % 8.7 % [facility] Monocyte Abs 0.9 0.3 - 0.9 x10(3)/mc L [facility] Eos % 1.6 % [facility] Eosinophils Abs 0.2 0.0 - 0.4 x10(3)/mc L [facility] Basophil % 0.4 % [facility] [...] ORDERABLE S [facility] [place] [place] [address] * (ABNORMAL) Hemogram (10/31/2023 1:37 AM EDT) [...] [facility] NRBC% auto 0.0 % [facility] NRBC Absolute 0.000 0.000 - 0.000 x10(3)/mc L [facility] Blood 10/31/2023 1:37 AM EDT 10/31/2023 1:46 AM EDT Narrative Resulting Agency Comment Spec In Lab Qamar Gallardo MD HEMATOLOGY ORDERABLE S [facility] [place] [address] * Phosphorus (10/31/2023 1:37 AM EDT) [facility] Phosphorus 3.2 2.5 - 4.5 mg/dL [facility] Blood 10/31/2023 1:37 AM EDT 10/31/2023 1:46 AM EDT Narrative Resulting Agency Comment Spec In Lab Rosa Cornejo MD CHEMISTRY ORDERABLE S Performing Organization Address City/[facility]/ZIP Co de Phone Number [facility] [place] [address] * Magnesium (10/31/2023 1:37 AM EDT) [facility] Magnesium 0.83 0.69 - 1.07 mmol/L [facility] Blood 10/31/2023 1:37 AM EDT 10/31/2023 1:46 AM EDT Narrative Resulting Agency Comment Spec In Lab Rosa Cornejo MD CHEMISTRY ORDERABLE S Performing Organization Address City/[facility]/ZIP Co de Phone Number [facility] [place] [address] * Basic Metabolic Panel (non-fasting) (10/31/2023 1:37 AM EDT) [facility] Glucose 114 65 - 199 mg/dL [facility] [...] ORDERABLE S [facility] [place] [address] * (ABNORMAL) Troponin (10/31/2023 1:37 AM EDT) [...] troponin value can be found in the [facility] Test Catalog Troponin - [facility] Test Catalog Reference: Fourth [place] Definition of Myocardial Infarction. Journal of the [place] [employer] 2018;72:7690-7846 Blood 10/31/2023 1:37 AM EDT 10/31/2023 1:46 AM EDT Narrative Resulting Agency Comment Spec In Lab Rosa Cornejo MD CHEMISTRY ORDERABLE S Performing Organization Address City/State/[facility] [place] [address] * EKG 12 Lead (10/31/2023 1:20 AM EDT) Ventricular rate 52 BPM MUSE SYSTEM Atrial Rate 52 BPM MUSE SYSTEM P-R Interval 224 ms MUSE SYSTEM QRS Duration 108 ms MUSE SYSTEM Q-T Interval 544 ms MUSE SYSTEM QTC Calculated (Bezet) 505 ms MUSE SYSTEM Calculated P Roundup 90 degrees MUSE SYSTEM Calculated R Roundup -57 degrees MUSE SYSTEM Calculated T Roundup -63 degrees MUSE SYSTEM INTERPRETATION Sinus bradycardia with 1st degree A-V block Pulmonary disease pattern Left anterior fascicular block Moderate voltage criteria for LVH, may be normal variant ( R in aVL , Brave product ) T wave abnormality, consider inferior ischemia T wave abnormality, consider anterolateral ischemia Prolonged QT Abnormal ECG When compared with ECG of 30-OCT-2023 22:40, No significant change was found Confirmed by Butch Soto MD ([id number]) on 11/01/2023 8:58:03 PM MUSE SYSTEM 10/31/2023 1:20 AM EDT 11/01/2023 8:58 PM EDT Rosa Cornejo MD ECG ORDERABLES Performing Organization Address [facility] de Phone Number MUSE SYSTEM * EKG 12 Lead (10/30/2023 10:40 PM EDT) Ventricular rate 55 BPM MUSE SYSTEM Atrial Rate 55 BPM MUSE SYSTEM P-R Interval 232 ms MUSE SYSTEM QRS Duration 102 ms MUSE SYSTEM Q-T Interval 520 ms MUSE SYSTEM QTC Calculated (Bezet) 497 ms MUSE SYSTEM Calculated P Roundup 75 degrees MUSE SYSTEM Calculated R Roundup -53 degrees MUSE SYSTEM Calculated T Roundup -57 degrees MUSE SYSTEM INTERPRETATION Sinus bradycardia with 1st degree A-V block Left anterior fascicular block Moderate voltage criteria for LVH, may be normal variant ( R in aVL , Brave product ) T wave abnormality, consider inferior ischemia T wave abnormality, consider anterolateral ischemia Prolonged QT Abnormal ECG When compared with ECG of 30-OCT-2023 20:21, Incomplete right bundle branch block is no longer Present Confirmed by Charles COFFMAN, Butch ([id number]) on 11/01/2023 8:58:01 PM MUSE SYSTEM 10/30/2023 10:4 0 PM EDT 11/01/2023 8:58 PM EDT Rosa Cornejo MD ECG ORDERABLES Performing Organization Address [facility] Phone Number MUSE SYSTEM * XR Chest One View (10/30/2023 10:10 PM EDT) WORKSTATION ID [id number] RAD Anatomical Region Laterality Modality Chest N/A Digital Radiogra phy Impressions 10/30/2023 10:32 PM EDT 1. ??Examination limited by low lung volumes. 2. ??Findings suggesting pulmonary vascular congestion with possible mild interstitial edema. 3. ??Known ascending aortic aneurysm, as seen on recent CT. 4. ??Nonspecific widening mediastinum. This can be secondary to magnification from portable technique and low lung volumes. Findings similar to liquor gallery operator radiograph from CT 10/30/2023. Thank you for letting us participate in the care of this patient. ??If you are a health care provider and have any questions regarding this report, please contact the number below. ??For patients who have questions please contact the health medical care manager that requested your imaging first. ? Electronically signed by: Wilson Mccartney MD, [facility] ([phone]), at 10/30/2023 10:32 PM Narrative 10/30/2023 10:32 [...] and low lung volumes. Findings similar to liquor gallery operator radiograph from CT 10/30/2023. Thank you for letting us participate in the care of this patient. If youare a health care provider and have any questions regarding this report,please contact the number below. For patients who have questions please contactthe health medical care manager that requested your imaging first. Rosa Cornejo MD IMG DX ORDERABLES * Green Tube HOLD (10/30/2023 10:05 PM EDT) [facility] Green Hold Sample in lab. [facility] Blood Venous Draw / Unknown 10/30/2023 10:05 PM EDT 10/30/2023 10:13 PM EDT Qamar Gallardo MD CHEMISTRY ORDERABLES [facility] [place] [address] * (ABNORMAL) Differential, Automated (10/30/2023 10:05 PM EDT) [facility] Neutrophil % 76.6 % [facility] Neutrophil Absolute 6.94(H) 1.70 - 6.10 x10(3)/mc L [facility] Lymph % 15.4 % [facility] Lymphocytes Abs 1.4 0.9 - 3.2 x10(3)/mc L [facility] Monocyte % 6.1 % [facility] Monocyte Abs 0.6 0.3 - 0.9 x10(3)/mc L [facility] Eos % 1.1 % [facility] Eosinophils Abs 0.1 0.0 - 0.4 x10(3)/ L [facility] Basophil % 0.6 % [facility] [...] ORDERABLE S [facility] [place] [address] * (ABNORMAL) Hemogram (10/30/2023 10:05 PM EDT) [...] Platelet 211 145 - 357 x10(3)/ L [facility] RDW Standard Deviation 53.6(H) 37.0 - 46.0 fL [facility] RDW coefficient of variation 14.6(H) 11.5 - 14.1 % [facility] Mean Platelet Volume 11.1 7.6 - 12.9 fL [facility] NRBC% auto 0.0 % [facility] NRBC Absolute 0.000 0.000 - 0.000 x10(3)/mc L [facility] Blood 10/30/2023 10:0 5 PM EDT 10/30/2023 10:12 PM EDT Narrative Resulting Agency Comment Spec In Lab Qamar Gallardo MD HEMATOLOGY ORDERABLE S Performing Organization Address City/[facility]/ZIP Co de Phone Number [facility] [place] [address] * Hemoglobin A1c (10/30/2023 10:05 PM EDT) [...] Mellitus, Diabetes Care 2013; 36: Suppl. 1, T99-25 Estimated Average Glucose See note mg/dL [facility] Comment: Estimated Average Glucose not appropriate for patients over 70 years of age. Blood 10/30/2023 10:0 5 PM EDT 10/30/2023 10:12 PM EDT Narrative Resulting Agency Comment Spec In Lab Rosa Cornejo MD CHEMISTRY ORDERABLE S Performing Organization Address City/[facility]/ZIP Co de Phone Number [facility] [place] [address] * Lipid Panel (Reflex Direct LDL) (10/30/2023 10:05 PM EDT) Cholesterol, Total 218 mg/dL [facility] Comment: Desirable: ? <200 mg/dL Borderline High: 200-239 mg/dL Higher: ?>ar=960 mg/dL Triglyceride 46 mg/dL [facility] Comment: Normal: ?<150 mg/dL Borderline High: 150-199 mg/dL High: ?200-499 mg/dL Very High: ? >xc=691 mg/dL HDL Cholesterol 64 mg/dL [facility] Comment: Females: High Risk: <50 mg/dL Males: High Risk: <40 mg/dL LDL Cholesterol 145 mg/dL [facility] Comment: Desirable: ? <100 mg/dL Above Desirable: 100-129 mg/dL Borderline High: 130-159 mg/dL High: ?160-189 mg/dL Very High: ? >iu=735 mg/dL Lipid Interpretation See Note [facility] individuals with atherosclerotic cardiovascular disease (ASCVD)or LDL >gk=278 mg/dL, use a high-intensity statin (40-80 mg [...] ORDERABLE S [facility] [place] [address] * TSH [place] (10/30/2023 10:05 PM EDT) Thyroid Stimulating Hormone 3.35 0.27 - 4.20 mcIU/mL [facility] Comment: Reference Interval (mcIU/mL): Females: ??First Trimester: 0.23-3.88 ??Second Trimester: 0.22-3.90 ??Third Trimester: 0.44-4.66 Blood 10/30/2023 10:0 5 PM EDT 10/30/2023 10:12 PM EDT Narrative Resulting Agency Comment Spec In Lab Rosa Cornejo MD CHEMISTRY ORDERABLE S [facility] [place] [address] * pro-Brain Natriuretic Peptide (10/30/2023 10:05 PM EDT) NT-proBNP 375 <=449 pg/mL [facility] Blood 10/30/2023 10:0 5 PM EDT 10/30/2023 10:12 PM EDT Narrative Resulting Agency Comment Spec In Lab Rosa Cornejo MD CHEMISTRY ORDERABLE S Performing Organization Address [facility]/ZIP Co de Phone Number [facility] [place] [address] * (ABNORMAL) Comprehensive metabolic panel (non-fasting) (10/30/2023 10:05 PM EDT) Pathologist [facility] Glucose 121 65 - 199 mg/dL [facility] [...] MD CHEMISTRY ORDERABLE S Performing Organization Address City/[facility]/ZIP Co de Phone Number [facility] [place] [address] * Phosphorus (10/30/2023 10:05 PM EDT) Phosphorus 3.3 2.5 - 4.5 mg/dL [facility] Blood 10/30/2023 10:0 5 PM EDT 10/30/2023 10:12 PM EDT Narrative Resulting Agency Comment Spec In Lab Rosa Cornejo MD CHEMISTRY ORDERABLE S Performing Organization Address City/[facility]/ZIP Co de Phone Number [facility] [place] [address] * Magnesium (10/30/2023 10:05 PM EDT) Magnesium 0.86 0.69 - 1.07 mmol/L [facility] Blood 10/30/2023 10:0 5 PM EDT 10/30/2023 10:12 PM EDT Narrative Resulting Agency Comment Spec In Lab Rosa Cornejo MD CHEMISTRY ORDERABLE S [facility] [address] * (ABNORMAL) Troponin (10/30/2023 10:05 PM EDT) [...] troponin value can be found in the [facility] Test Catalog Troponin - [facility] Test Catalog Reference: Fourth [place] Definition of Myocardial Infarction. Journal of the [place] [employer] 2018;72:8516-3978 Blood 10/30/2023 10:0 5 PM EDT 10/30/2023 10:12 PM EDT Narrative Resulting Agency Comment Spec In Lab Rosa Cornejo MD CHEMISTRY ORDERABLE S [facility] [place] [address] * EKG 12 Lead (10/30/2023 8:21 PM EDT) Ventricular rate 49 BPM MUSE SYSTEM Atrial Rate 49 BPM MUSE SYSTEM P-R Interval 230 ms MUSE SYSTEM QRS Duration 96 ms MUSE SYSTEM Q-T Interval 526 ms MUSE SYSTEM QTC Calculated (Bezet) 475 ms MUSE SYSTEM Calculated P Roundup 98 degrees MUSE SYSTEM Calculated R Roundup -48 degrees MUSE SYSTEM Calculated T Roundup -51 degrees MUSE SYSTEM INTERPRETATION Sinus bradycardia [...] Cornejo MD ECG ORDERABLES Performing Organization Address City/[facility] Co de Phone Number MUSE SYSTEM [...] documented as of this encounter Care Teams Magnesium Mill Operator Relationship Specialty Start Date End Date Rosie Mathews MD [address] [place] [id number] PCP - General Family Medicine 11/25/17 11/23/23 documented as of this encounter
--- OUTSIDE RECORDS SUMMARY | 2024-03-02 10:36 | XMS_ITS | Encounter Summary ---
Author Organization [facility] [place] [address] Care Team Providers Care Oral Pathologist Name Role Phone Rosie Mathews MD Primary Care Provider [phone] Reason for Visit * Auth/Cert (Routine) Specialty Diagnoses / Procedures Referred By Contac t Referred To Contact Diagnoses Unstable angina Procedures [facility] [employer] [place] [facility] [employer] [facility] Referral ID Status Reason Start Date Expiration Date Visits Re quested Visits Authorized [id number] 1 1 Encounter Details Date Type Department Care Team (Latest Contact Info) Description 10/30/2023 5:00 PM EDT - 10/30/2023 5:10 PM EDT Hospital [place] [id number] Rosa Menjivar MD [facility] [place] [address] Discharge Disposition: Home Social History Tobacco Use Types Packs/Day Years Used Date Smoking Tobacco: Former Smokeless Tobacco: Never Alcohol Use Standard Drinks/Week Comments Not Currently 0 (1 standard drink = 0.6 oz pur e alcohol) [facility] Inpatient Questions Answer Date Recorded Does Anyone [...] AM EDT Office Visit Cardiology at [address] [place] [address] Izaiah Meyer MD [facility] [place] [address] documented as of this encounter Visit Diagnoses Not on filedocumented in this encounter Care Teams Oral Pathologist Relationship Specialty Start Date End Date Rosie Mathews MD [address] [place] [address] PCP - General Family Medicine 11/25/17 11/23/23 documented as of this encounter
--- OUTSIDE RECORDS SUMMARY | 2024-03-02 10:36 | XMS_ITS | Encounter Summary ---
Author Organization [facility] [place] [address] Care Team Providers Care Meat Counter Worker Name Role Phone Rosie Mathews MD Primary Care Provider [phone] Encounter Details Date Type Department Care Team (Late st Contact Info) Description 10/30/2023 5:00 PM EDT Ancillary Procedure [place] [id number] Izaiah Meyer MD [facility] [place] [place] [address] Social History Tobacco Use Types Packs/Day Years Used Date Smoking Tobacco: Former Smokeless Tobacco: Never Alcohol Use Standard Drinks/Week Comments Not Currently 0 (1 standard drink = 0.6 oz pur e alcohol) [facility] Inpatient Questions Answer Date Recorded [...] 11:20 AM EDT Office Visit Cardiology at [address] [place] [address] Izaiah Meyer MD [facility] [place] [address] documented as of this encounter Procedures Procedure Name Priority Date/Time Associated Diagnosis Comments FILM LIBRARY STORAGE ONLY CT CHEST Routine 10/30/2023 4:59 PM EDT documented in this encounter Results * Film Library- Storage Only CT Chest (10/30/2023 4:59 PM EDT) Narrative [facility] 10/30/2023 4:59 PM EDT This exam is auto-finalizing. It's purpose is for storage only. Izaiah Meyer MD IMG FILM LIBRARY ORD ERABLES Performing Organization Address City/State/[facility] Co de Phone Number [place], [place] documented in this encounter Visit Diagnoses Not on filedocumented in this encounter Care Teams Meat Counter Worker Relationship Specialty Start Date End Date Rosie Mathews MD [address] [place] [address] PCP - General Family Medicine 11/25/17 11/23/23 documented as of this encounter
--- OUTSIDE RECORDS SUMMARY | 2024-03-02 10:36 | XMS_ITS | Encounter Summary ---
Author Organization [facility] [place] [address] Care Team Providers Care Welding Equipment Repairer Name Role Phone Rosie Mathews MD Primary Care Provider [phone] Reason for Visit * Auth/Cert (Routine) Specialty Diagnoses / Procedures Referred By Contbruce t Referred To Contact Diagnoses Unstable angina Chest pain NSTEMI Procedures CARDIAC CATHETERIZATION Rosa Dewey MD [facility] [place] [address] [facility] Referral ID Status Reason Start Date Expiration Date Visits Re quested Visits Authorized [id number] 1 1 Encounter Details Date Type Department Care Team (Late st Contact Info) Description 11/01/2023 3:33 PM EDT - 11/01/2023 5:03 PM EDT [place] [address] Rosa Dewey MD [facility] [address] [place], [place] [id number] CARDIAC CATHETERIZATION Social History Tobacco Use Types Packs/Day Years Used Date Smoking Tobacco: Former Smokeless Tobacco: Never Alcohol Use Standard Drinks/Week Comments Not Currently 0 (1 standard drink = 0.6 oz pur e alcohol) [facility] Utilities Answer Date Recorded In [...] for hypertension and hyperlipidemia who presented to [facility] as a transfer from [facility] as a possible STEMI alert with acute onset chest pain. The patient reports that her symptoms initially began on Tuesday when she was walking to [facility] and experienced bilateral arm heaviness while walking [...] on repeat, her TRU resolved. Cardiology at [facility] was consulted for transfer; the patient was loaded with aspirin 324 mg and ticagrelor 180 mg, started on a heparin drip, and given nitroglycerin with improvement in chest pain. Upon arrival to [facility], the patient was taken directly to the Telesales Manager. Two lesions were discovered: one in the prox RCA (felt to almost be a [employer] but they were able to wire, balloon, [...] administered prior to arrival in the laborer pipeline. Recommended anti-platelet/anti-thrombotic regimen: Continue aspirin 81 mg [...] and low lung volumes. Findings similar to dining car hop radiograph from CT 10/30/2023. Pending Studies and [...] 10:40 AM Izaiah Meyer MD Cardiology at [facility] Arrive at: [facility] [address] [phone] Future Orders Complete By Expires Referral to Cardiac Rehab [[id number] Custom] As directed Process Instructions: If no progress note charted, please enter Clinical details in comments. Scheduling Instructions: Questions: My question or request is: STEMI. Cardiac rehab at [facility]. Referral to Home Health [[id number] Custom] As directed Process Instructions: If no progress note charted, please enter Clinical details in comments. Scheduling Instructions: Comments: Please evaluate Adin Santos for admission to Home Health. [address] [facility] [address] (home) Date of : 1940 Inpatient DOCUMENTATION FOR VNA SERVICES (INCLUDING THOSE PATIENTS WITH MEDICARE COVERAGE REQUIRING HOME VNA SERVICES AND/OR HOSPICE SERVICES) PATIENT'S LOCATION: Adin Santos [address] [facility] [address] (home) Cell: Telephone Information: Textile Examiner's Name: self In discussion with the attending physician, it is certified that this patient is under their care and that they, or a Nurse Practitioner, Clinical Nurse specialist or Physician Adoption Services Manager who is working directly with them, [...] AGENCY: [facility] [address] [address] START OF CARE: within 24-48 hours of [...] [address] / [facility] [address] . All A agencies [...] MD / Dr. Masood Pierson [address] [place] [address] 11/09/23 1:55 PM arrival for 2:10 PM appointment Mammalogist: Izaiah Meyer MD [address] [place] [address] , 11/24/2023 10:40 AM Your Inpatient Medical Team at [facility] Name(s) of your inpatient provider(s): Attending physician: Rosa Hugo MD Resident physicians: Emile Robles MD; Elmer Tamez MD If you have non-emergent questions, prior to your follow-up visit call: Tuesday-Tuesday between the hours of 8AM-5PM please call the Cardiology Clinic [phone] to speak with a nurse. All other hours please call the Hospital Welfare Project Manager [phone] and ask to speak to the tailoring teacher on-call. Your Primary Care Provider Rosie Mathews MD [phone] For questions regarding this document or issues relating to this hospitalization on the Medical Service, please contact your inpatient physician through the [facility] Welfare Project Manager . Issues afterhours and on weekends will be handled by the Mammalogist staff on-call. Associated attestation - Rosa Hugo [...] MD / Dr. Masood Pierson [address] [place] [address] 11/09/23 1:55 PM arrival for 2:10 PM appointment Mammalogist: Izaiah Meyer MD [address] [place] [address] , 11/24/2023 10:40 AM Your Inpatient Medical Team at [facility] Name(s) of your inpatient provider(s): Attending physician: Rosa Hugo MD Resident physicians: Emile Robles MD; Elmer Tamez MD If you have non-emergent questions, prior to your follow-up visit call: Tuesday-Tuesday between the hours of 8AM-5PM please call the Cardiology Clinic [phone] to speak with a nurse. All other hours please call the Hospital Welfare Project Manager [phone] and ask to speak to the tailoring teacher on-call. Your Primary Care Provider Rosie Mathews MD [phone] documented in this encounter Medications at Time [...] for hypertension and hyperlipidemia who presented to [facility] as a transfer from [facility] [...] for hypertension and hyperlipidemia who presented to [facility] as a transfer from [facility] [...] Resident on Cardiology Service Cardiology S1 (Pager [phone]) Note written in conjunction with Claudio Perla [facility] Medical Student, MS3 Associated attestation - [...] Nirmala Webb - 11/01/2023 11:25 AM EDT Racing Secretary Encounter Note Patient Name: Adin Santos : [id number] MR#: [id number] Admit Date: 10/30/2023 5:11 PM Hospital Day 2 days Narrative: Self initiated visit to patient for Spiritual support in a regular unit rounds. Assessment: Patient is in the bathroom at the time of this visit. Not a good time for Food Service Coordinator visit. Intervention and Outcome: An attempted [...] for hypertension and hyperlipidemia who presented to [facility] as a transfer from [facility] [...] and low lung volumes. Findings similar to dining car hop radiograph from CT 10/30/2023. Scheduled Medications: [AUG [...] for hypertension and hyperlipidemia who presented to [facility] as a transfer from [facility] [...] Resident on Cardiology Service Cardiology S1 (Pager [phone]) Note written in conjunction with Claudio Perla [facility] Medical Student, MS3 Associated attestation - [...] for hypertension and hyperlipidemia who presented to [facility] as a transfer from [facility] as a possible STEMI alert with acute onset chest pain. Active Problems: Active Hospital Problems Diagnosis Unstable angina Resolved Hospital Problems No resolved problems to display. 24 hr events: - Cath'd yesterday with lesion in the proximal RCA (initially thought it was MENDER [employer]IT [employer] but they were ableto wire, balloon and [...] and low lung volumes. Findings similar to dining car hop radiograph from CT 10/30/2023. TTE (10/30): Interpretation [...] for hypertension and hyperlipidemia who presented to [facility] as a transfer from [facility] [...] Resident on Cardiology Service Cardiology S1 (Pager [phone]) Note written in conjunction with Claudio Perla [facility] Medical Student, MS3 Associated attestation - [...] PCP: Rosie Mathews MD PCP phone number: [phone] Date of Admission: 10/30/2023 ( Hospital Day 0 days ) Attending:Rosa Cornejo MD ID: Adin Santos is a 83 y.o. female PMH significant for hypertension and hyperlipidemia who presented to [facility] as a transfer from [facility] as a possible STEMI alert with acute onset chest pain. The patient reports that her symptoms initially began on Tuesday when she was walking to [facility] and experienced bilateral arm heaviness while walking [...] on repeat, her TRU resolved. Cardiology at [facility] was consulted for transfer; the patient was loaded with aspirin 324 mg and ticagrelor 180 mg, started on a heparin drip, and given nitroglycerin with improvement in chest pain. Upon arrival to [facility], the patient was taken directly to the Telesales Manager. 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 Findings similar to dining car hop radiograph from CT 10/30/2023. Assessment & Plan: Adin Santos is a 83 y.o. female PMH significant for hypertension and hyperlipidemia who presented to [facility] as a transfer from [facility] [...] with HTN HLD transferred with chest from [facility]. BP 217/68, HR 71 EKG [...] information for follow-up Home Health & Hospice, [place] [address] TANESHA BOYCE confirmed with [facility] that they will see the patient within 24-48 hours of discharge for start of care. Transportation: family or friend will provide Wheelchair van/Ambulance? No Functional status prior to admission: Assistive Equipment Home Environment: Others in the home: alone. Current Living Arrangements: home/apartment/condo. Accessibility Concerns:1st floor apartment in longterm community; handicapped accessible. Current Functional Ability: Assistive Equipment DME used at home: cane - straight, grab bar - tub/shower, grab bar - toilet, raised toilet seat DME Needed at Discharge: N/A Patient is insured through: Primary Insurance: [employer] MANAGED MEDICARE Payor: [employer] MANAGED MEDICARE / Plan: [employer] MANAGED MEDICARE PPO / Product Type: *No [...] the room. Electrolytes replaced, see MAR. laborer concrete plant sites remained C/D/I with baseline ecchymosis unchanged. Pt complained of back pain, lidocaine patch given. Right IV infiltrated during infusion, patient is marked with sharpie, IV removed. See flowsheet for I+O's and safety rounding. Patient is able to make needs known and call capps within reach. PLAN MOVING FORWARD: Monitor Tele, control BP, monitor laborer pipeline sites, D/C Planning INDIVIDUALIZED FALL PREVENTION INTERVENTIONS: [...] in an outpatient cardiac rehabilitation program at [facility] was discussed. Patient agrees to [...] above on RA. PT went to laborer pipeline today. Left fem site oozed throughout shift, [...] FORWARD: Monitor Tele, control BP, monitor laborer pipeline sites, D/C Planning INDIVIDUALIZED FALL PREVENTION INTERVENTIONS: [...] EDT Office of Care Management Initial Assessment Brcue Waller RN reviewed record and discussed patient with Care Team. Source of Information: Team, bedside nurse, medical record, and Patient, Chart Review Introduced self/reviewed role; services accepted. Admitted From: Transfer from another hospital Location: [facility] Reason for Hospitalization: chest pain [...] 180 days) Any patient receiving care in [place] must abide by [place] law. The hierarchy [...] Arrangements: home/apartment/condo. Accessibility Concerns:1st floor apartment in longterm community; handicapped accessible. In the last 12 [...] has the electric, gas, oil, or water [employer] threatened to shut off services in your [...] toilet seat Home Address confirmed as: [address] [facility] [address] Social & Family Supports: All names listed below confirmed with patient as current and correct Extended Emergency Contact Information Primary Emergency Contact: Iris Downing Address: [address] [place], [place] [address] [place] [address] Mobile Relation: Child Secondary Emergency Contact: Karen More Address: [address] [facility] Mobile Relation: Child Current Care Provided by: self Provides Primary Care For: no one Caregiver if needed: child(emmanuel), adult Quality of Family relationships: involved, supportive Community Resources being provided currently: other (see comments) (receives [facility] services at home (1xweekly)) Behavioral Health History: [...] Specific Information: N/A Health/Prescription Coverage: Primary Insurance: [employer] MANAGED MEDICARE Payor: [employer] MANAGED MEDICARE / Plan: [employer] MANAGED MEDICARE PPO / Product Type: *No Product type* / Secondary Insurance: N/A Prescription Coverage: Yes Preferred Pharmacy: [id number] - [place], [place] - [address] [place] [id number] Status: Patient is a : No Primary Care Provider listed: Masood Pierson MD [phone] Patient/Caregiver Goals of Treatment: home when MR Potential Needs for Transition of Care: home health care Agency Referrals: Not Applicable I have met with the patient to: discuss discharge planning needs. provide the [facility], Office of Care Management letter from the Planer Operator pertaining to rehab referrals. provide a letter describing our affiliations within the [facility] and educate about their right to choose where referrals are sent. provide a list of Home Health Agencies / Durable Medical Equipment vendors which serve their preferred geographic area. provided patient with [facility] Star Quality Rating handout. They have requested referrals to: [facility] [address] [place] [address] Note routed to a Senior Billing Consultant who will communicate referrals to facilities [...] PO hydralazine added for BP control. laborer concrete plant sites remain C/D/I, ecchymosis unchanged th roughout shift. See flowsheet for I+O's and safety rounding. Patient is able to make needs known and call capps within reach. PLAN MOVING FORWARD: Monitor Tele, control CP and BP, NPO at MD for cath, monitor laborer pipeline sites, D/C Planning INDIVIDUALIZED FALL PREVENTION INTERVENTIONS: [...] AM EDT Office Visit Cardiology at [address] [place] [address] Izaiah Meyer MD [facility] [place] [address] Scheduled Referrals Name Type Priority Associated Diagnoses [...] 3:46 AM EDT) Neutrophil % 63.3 % [facility] Neutrophil Absolute 5.28 1.70 - 6.10 x10(3)/mc L [facility] Lymph % 15.2 % [facility] Lymphocytes Abs 1.3 0.9 - 3.2 x10(3)/mc L [facility] Monocyte % 16.9 % [facility] Monocyte Abs 1.4(H) 0.3 - 0.9 x10(3)/mc L [facility] Eos % 3.7 % [facility] Eosinophils Abs 0.3 0.0 - 0.4 x10(3)/ L [facility] Basophil % 0.5 % NORTH [...] ORDERABLE S [facility] [place] [address] * (ABNORMAL) Hemogram (11/03/2023 3:46 AM EDT) [...] Platelet 181 145 - 357 x10(3)/mc L [facility] RDW Standard Deviation 54.7(H) 37.0 - 46.0 fL [facility] RDW coefficient of variation 14.6(H) 11.5 - 14.1 % [facility] Mean Platelet Volume 11.2 7.6 - 12.9 fL [facility] NRBC% auto 0.0 % [facility] NRBC Absolute 0.000 0.000 - 0.000 x10(3)/mc L [facility] Blood 11/03/2023 3:46 AM EDT 11/03/2023 4:11 AM EDT Narrative Resulting Agency Comment Spec In Lab Qamar Gallardo MD HEMATOLOGY ORDERABLE S Performing Organization Address City/[facility]/ZIP Co de Phone Number [facility] [place] [address] * Phosphorus (11/03/2023 3:46 AM EDT) Pathologist [facility] Phosphorus 3.2 2.5 - 4.5 mg/dL [facility] Comment:result rechecked-KS Blood 11/03/2023 3:46 AM EDT 11/03/2023 4:11 AM EDT Narrative Resulting Agency Comment Spec In Lab Rosa Cornejo MD CHEMISTRY ORDERABLE S Performing Organization Address [facility] Co de Phone Number [facility] [place] [address] * Magnesium (11/03/2023 3:46 AM EDT) [facility] Magnesium 0.90 0.69 - 1.07 mmol/L [facility] Blood 11/03/2023 3:46 AM EDT 11/03/2023 4:11 AM EDT Narrative Resulting Agency Comment Spec In Lab Rosa Cornejo MD CHEMISTRY ORDERABLE S Performing Organization Address [facility] Co de Phone Number [facility] [place] [address] * (ABNORMAL) Basic Metabolic Panel (non-fasting) (11/03/2023 3:46 AM EDT) Pathologist [facility] Glucose 105 65 - 199 mg/dL [facility] [...] ORDERABLE S [facility] [place] [address] * EKG 12 Lead (11/02/2023 12:44 PM EDT) Ventricular rate 83 BPM MUSE SYSTEM Atrial Rate 83 BPM MUSE SYSTEM P-R Interval 216 ms MUSE SYSTEM QRS Duration 90 ms MUSE SYSTEM Q-T Interval 384 ms MUSE SYSTEM QTC Calculated (Bezet) 451 ms MUSE SYSTEM Calculated P [place] 92 degrees MUSE SYSTEM Calculated R [place] -51 degrees MUSE SYSTEM Calculated T [place] -33 degrees MUSE SYSTEM INTERPRETATION Sinus rhythm with 1st degree A-V block with Premature atrial complexes Left axis deviation Moderate voltage criteria for LVH, may be normal variant ( R in aVL , Ifeanyi product ) Anterolatera l infarct (cited on or before 01-NOV-2023) Abnormal ECG When compared with ECG of 01-NOV-2023 22:10, Premature atrial complexes are now Present NE interval has increased Vent. rate has decreased BY ??56 BPM Confirmed by MD Kevin, Esteban ([id number]) on 11/02/2023 1:32:10 PM MUSE SYSTEM 11/02/2023 12:4 4 PM EDT 11/02/2023 1:32 PM EDT Rosa Hugo MD ECG ORDERABLES MUSE SYSTEM * (ABNORMAL) Urinalysis Microscopic Exam (11/02/2023 11:40 AM EDT) RBC, Urine <1 0 - 4 /HPF [facility] Comment: Interpret results with caution, microscopic results are from suboptimal specimen volume WBC, Urine 16(H) 0 - 5 /HPF [facility] Comment: Interpret results [...] URINE ORDERABLES [facility] [place] [address] * (ABNORMAL) Urinalysis with reflex Culture (11/02/2023 [...] HOSPITAL LABORATORY Leukocytes, Urine Dipstick Small(A) Negative [facility] Appearance, Urine Dipstick Cloudy(A) Clear [facility] Specific [place] Urine Automated >=1.030(A) 1.005 - 1.030 [facility] Color, Urine Dipstick Dark Yellow Yellow [facility] Reflex to Culture Yes [facility] Clean Catch Urine 11/02/2023 11:40 AM EDT 11/02/2023 12:04 PM EDT Narrative Resulting Agency Comment Spec In Lab Rosa Hugo MD URINE ORDERABLES [facility] [place] [address] * Respiratory Panel PCR (11/02/2023 10:15 AM EDT) Respiratory Panel Source HYSTER MACHINE OPERATOR Swab [facility] Respiratory Panel PCR Negative Negative [facility] Comment: Respiratory Panels are performed on the [employer], using multiplexed PCR nucleic acid detection. ??Negative [...] performed using the BioFire Respiratory Panel 2.1 (Elivar) as authorized by the FDA issued Emergency [...] within the [facility], each of which is certified under the [...] fact sheets at the following FDA website: https://www.fda.gov/medical-devices/dmmzwnpjcvx-cftubuk-3501-mscob-98-mzgcgsmas- use-a zpwzxlgumisgs-mubbixg-kmmvkeg/klsrm-gxyxsusddbh-cjvx Human Metapneumovirus Not Detected Not Detected [facility] [...] ERAL ORDERABLES [facility] [place] [address] * XR Chest One View (11/02/2023 2:51 AM EDT) WORKSTATION ID [id number] RAD Anatomical Region Laterality Modality Chest N/A [...] have questions please contact the health career based intervention coordinator that requested your imaging first. ? Narrative [...] who have questions please contactthe health career based intervention coordinator that requested your imaging first. Rosa Hugo MD IMG DX ORDERABLES * (ABNORMAL) Differential, Automated (11/02/2023 12:35 AM EDT) Neutrophil % 76.5 % [facility] Neutrophil Absolute 7.69(H) 1.70 - 6.10 x10(3)/mc L [facility] Lymph % 8.3 % [facility] Lymphocytes Abs 0.8(L) 0.9 - 3.2 x10(3)/mc L [facility] Monocyte % 12.9 % [facility] Monocyte Abs 1.3(H) 0.3 - 0.9 x10(3)/mc L [facility] Eos % 1.4 % [facility] Eosinophils Abs 0.1 0.0 - 0.4 x10(3)/mc L [facility] Basophil % 0.4 % NORTH [...] ORDERABLE S [facility] [address] * (ABNORMAL) Hemogram (11/02/2023 12:35 AM EDT) White Blood Cell 10.0(H) 4.0 - 9.5 x10(3)/ L [facility] NRBC% auto 0.0 % [facility] NRBC Absolute 0.000 0.000 - 0.000 x10(3)/mc L [facility] Blood 11/02/2023 12:3 5 AM EDT 11/02/2023 12:43 AM EDT Narrative Resulting Agency Comment Spec In Lab Qamar Gallardo MD HEMATOLOGY ORDERABLE S [facility] [place] [address] * (ABNORMAL) Phosphorus (11/02/2023 12:35 AM EDT) Phosphorus 1.6(L) 2.5 - 4.5 mg/dL [facility] Blood 11/02/2023 12:3 5 AM EDT 11/02/2023 12:43 AM EDT Narrative Resulting Agency Comment Spec In Lab Rosa Cornejo MD CHEMISTRY ORDERABLE S Performing Organization Address City/[facility]/ZIP Co de Phone Number [facility] [address] * Magnesium (11/02/2023 12:35 AM EDT) Magnesium 0.87 0.69 - 1.07 mmol/L [facility] Blood 11/02/2023 12:3 5 AM EDT 11/02/2023 12:43 AM EDT Narrative Resulting Agency Comment Spec In Lab Rosa Cornejo MD CHEMISTRY ORDERABLE S Performing Organization Address City/[facility]/ZIP Co de Phone Number [facility] [place] [address] * Basic Metabolic Panel (non-fasting) (11/02/2023 12:35 [...] ORDERABLE S [facility] [address] * Blood culture (11/02/2023 12:35 AM EDT) Blood Culture No growth at 5 days. [facility] [facility] Blood 11/02/2023 12:3 5 AM EDT 11/02/2023 1:55 AM EDT Comment:#2 site ukn Narrative Resulting Agency Comment Spec In Lab Rosa Hugo MD MICROBIOLOGY - BLO OD ORDERABLES Performing Organization Address City/[facility]/ZIP Co de Phone Number [facility] [place] [address] * Blood culture (11/02/2023 12:15 AM EDT) Blood Culture No growth at 5 days. [facility] Blood 11/02/2023 12:1 5 AM EDT 11/02/2023 1:54 AM EDT Comment:#1site unk Narrative Resulting Agency Comment Spec In Lab Rosa Hugo MD MICROBIOLOGY - BLO OD ORDERABLES Performing Organization Address [facility] Co de Phone Number [facility] [place] [address] * EKG 12 Lead (11/01/2023 10:10 PM EDT) Ventricular rate 139 BPM MUSE SYSTEM Atrial Rate 139 BPM MUSE SYSTEM P-R Interval 168 ms MUSE SYSTEM QRS Duration 84 ms MUSE SYSTEM Q-T Interval 286 ms MUSE SYSTEM QTC Calculated (Bezet) 435 ms MUSE SYSTEM Calculated R [place] -59 degrees MUSE SYSTEM Calculated T [place] -27 degrees MUSE SYSTEM INTERPRETATION Mid-RP tachycardia, [...] interpretation Confirmed by fellow MD Bowen Ashley ([id number]) on 11/04/2023 7:57:50 AM Confirmed by MD Carrillo Danette ([id number]) on 11/04/2023 4:32:03 PM MUSE SYSTEM 11/01/2023 10:1 0 PM EDT 11/04/2023 4:32 PM EDT Rosa Cornejo MD ECG ORDERABLES MUSE SYSTEM * (ABNORMAL) Hemogram (11/01/2023 10:06 PM EDT) White Blood Cell 10.4(H) 4.0 - 9.5 x10(3)/mc L [facility] Red Blood Cell 4.11 4.00 - 5.21 x10(6)/mc L [facility] [...] Platelet 197 145 - 357 x10(3)/mc L [facility] RDW Standard Deviation 54.0(H) 37.0 - 46.0 [facility] LABORATORY RDW coefficient of variation 14.6(H) 11.5 - 14.1 % [facility] Mean Platelet Volume 11.2 7.6 - 12.9 [facility] LABORATORY NRBC% auto 0.0 % [facility] NRBC Absolute 0.000 0.000 - 0.000 x10(3)/mc L [facility] Blood 11/01/2023 10:0 6 PM EDT 11/01/2023 10:22 PM EDT Narrative Resulting Agency Comment Spec In Lab Rosa Hugo MD HEMATOLOGY ORDERAB LES [facility] [place] [id number] * POCT Glucose (11/01/2023 5:59 PM EDT) Glucose, POC 104 65 - 199 mg/dL [facility] Comment: Supplemental ranges: <140 mg/dL before meals <180 mg/dL all other times of the day Blood 11/01/2023 5:59 PM EDT 11/01/2023 5:59 PM EDT Rosa Hugo MD POINT OF CARE TEST ORDERABLES [facility] [place] [address] * POCT Glucose (11/01/2023 5:35 PM EDT) Glucose, POC 85 65 - 199 mg/dL [facility] Comment: Supplemental ranges: <140 mg/dL before meals <180 mg/dL all other times of the day Blood 11/01/2023 5:35 PM EDT 11/01/2023 5:35 PM EDT Rosa Hugo MD POINT OF CARE TEST ORDERABLES [facility] [place] [address] * EKG 12 Lead (11/01/2023 3:22 PM EDT) Ventricular rate 59 BPM MUSE SYSTEM Atrial Rate 59 BPM MUSE SYSTEM P-R Interval 220 ms MUSE SYSTEM QRS Duration 94 ms MUSE SYSTEM Q-T Interval 428 ms MUSE SYSTEM QTC Calculated (Bezet) 423 ms MUSE SYSTEM Calculated P [place] 76 degrees MUSE SYSTEM Calculated R [place] -50 degrees MUSE SYSTEM Calculated T [place] -59 degrees MUSE SYSTEM INTERPRETATION Sinus bradycardia with sinus arrhythmia with 1st degree A-V block Left anterior fascicular block Moderate voltage criteria for LVH, may be normal variant ( R in aVL , [place] product ) Cannot rule out Inferior infarct [...] ? Procedure Date: 11/01/2023 ? A #: [id number] ? Primary Physician: Rosa Dewey I ? Case #: [id number] ? File Name: [id number] ? Catheterization Order Number: [id number] ? [facility] ? Final Report [place], [place] ? Patient Name: ? Adin M. Goguen ?ID#: ?[id number] ? : ?1940 ? Procedure Date: ? [...] as ASA Class III. The [facility] clinical ?frailty scale is 4: Vulnerable. [...] was Urgent. The indication for ?the laborer pipeline visit is ACS greater than 24 hrs. [...] ??A premounted ? 3.50 x 15 mm Salineno Rowan (RADHA) was deployed with a maximum ? [...] ? A premounted 3.50 x 15 mm Salineno Rowan (RADHA) was deployed ? with a maximum [...] administered prior to arrival in the laborer pipeline. ?Recommended anti-platelet/anti-thrombotic regimen: ?Continue aspirin 81 mg daily for indefinitely. ?Continue clopidogrel 75 mg daily for 12 months then stop. ?These recommendations are made at the time of the intervention. Patient ?and provider preferences or a changing clinical situation may require ?modification of this regimen. Consult [facility] Interventional Cardiology for ?questions. ?The 1 year [...] Rosa Dewey MD - 12/12/2023 [facility] Cardiac Catheterization/Intervention Report Patient Name: Adin Santos Procedure Date: 11/01/2023 A #: [id number] Primary Physician: Rosa Dewey I Case #: [id number] File Name: [id number] Catheterization Order Number: [id number] [facility] FinalReport [place], [place] Patient Name: Adin Santos ID#:[id number] :1940 Procedure Date: November 01, 2023 Case [...] procedure was Urgent. The indicationfor the laborer pipeline visit is ACS greater than 24 hrs. [...] 14 atmospheres. Apremounted 3.50 x 15 mm Salineno Rowan (RADHA) was deployed with amaximum inflation pressure [...] The lesion was predilated with a 3.00mm [id number] MM balloon with a maximum inflation pressure of 14atmospheres. A premounted 3.50 x 15 mm Salineno Rowan (RADHA) wasdeployed with a maximum inflation pressure [...] administered prior to arrival in the laborer pipeline. Recommended anti-platelet/anti-thrombotic regimen: Continue aspirin 81 mg daily for indefinitely. Continue clopidogrel 75 mg daily for 12 months then stop. These recommendations are made at the time of the intervention.Patient and provider preferences or a changing clinical situation mayrequire modification of this regimen. Consult [facility] Interventional Cardiologyfor questions. The 1 year bleeding [...] O RDERABLES [facility] [place] [address] * (ABNORMAL) Differential, Automated (11/01/2023 3:09 AM EDT) Neutrophil % 63.9 % [facility] Neutrophil Absolute 5.54 1.70 - 6.10 x10(3)/mc L [facility] Lymph % 20.0 % [facility] Lymphocytes Abs 1.7 0.9 - 3.2 x10(3)/mc L [facility] Monocyte % 11.9 % [facility] Monocyte Abs 1.0(H) 0.3 - 0.9 x10(3)/ L [facility] Eos % 3.2 % [facility] Eosinophils Abs 0.3 0.0 - 0.4 x10(3)/ L [facility] Basophil % 0.5 % [facility] [...] Immature Gran Absolute 0.04 0.00 - 0.04 x10(3)/[facility] LABORATORY Blood 11/01/2023 3:09 AM EDT 11/01/2023 3:29 AM EDT Narrative Resulting Agency Comment Spec In Lab Qamar Gallardo MD HEMATOLOGY ORDERABLE S [facility] [place] [address] * (ABNORMAL) Hemogram (11/01/2023 3:09 AM EDT) White Blood Cell 8.7 4.0 - 9.5 x10(3)/ L [facility] Red Blood Cell 3.72(L) 4.00 - 5.21 x10(6)/[facility] LABORATORY Hemoglobin 12.5 11.7 - 15.5 g/dL [...] [facility] NRBC% auto 0.0 % [facility] NRBC Absolute 0.000 0.000 - 0.000 x10(3)/mc L [facility] Blood 11/01/2023 3:09 AM EDT 11/01/2023 3:29 AM EDT Narrative Resulting Agency Comment Spec In Lab Qamar Gallardo MD HEMATOLOGY ORDERABLE S [facility] [place] [address] * Phosphorus (11/01/2023 3:09 AM EDT) Phosphorus 2.5 2.5 - 4.5 mg/dL [facility] Blood 11/01/2023 3:09 AM EDT 11/01/2023 3:29 AM EDT Narrative Resulting Agency Comment Spec In Lab Rosa Cornejo MD CHEMISTRY ORDERABLE S [facility] [place] [address] * Magnesium (11/01/2023 3:09 AM EDT) Magnesium 0.82 0.69 - 1.07 mmol/L [facility] Blood 11/01/2023 3:09 AM EDT 11/01/2023 3:29 AM EDT Narrative Resulting Agency Comment Spec In Lab Rosa Cornejo MD CHEMISTRY ORDERABLE S [facility] [place] [address] * (ABNORMAL) Basic Metabolic Panel (non-fasting) (11/01/2023 [...] MD CHEMISTRY ORDERABLE S Performing Organization Address City/[facility]/ZIP Co de Phone Number [facility] [place] [address] * (ABNORMAL) Troponin (10/31/2023 2:46 PM EDT) [...] can be found in the [facility] Test Catalog Troponin - [facility] Test Catalog Reference: Fourth [place] Definition of Myocardial Infarction. Journal of the [place] [employer] 2018;72:3720-7439 Blood 10/31/2023 2:46 PM EDT 10/31/2023 2:55 PM EDT Narrative Resulting Agency Comment Spec In Lab Jean Laboy MD CHEMISTRY ORDERABLES Performing Organization Address City/[facility]/ZIP Co de Phone Number [facility] [place] [address] * EKG 12 Lead (10/31/2023 1:07 PM EDT) Ventricular rate 54 BPM MUSE SYSTEM Atrial Rate 54 BPM MUSE SYSTEM P-R Interval 218 ms MUSE SYSTEM QRS Duration 92 ms MUSE SYSTEM Q-T Interval 540 ms MUSE SYSTEM QTC Calculated (Bezet) 512 ms MUSE SYSTEM Calculated P [place] 85 degrees MUSE SYSTEM Calculated R [place] -44 degrees MUSE SYSTEM Calculated T [place] -69 degrees MUSE SYSTEM INTERPRETATION Sinus bradycardia [...] [facility] Troponin-T, High Sensitivity 580(H) <=14 ng/L [facility] [...] can be found in the [facility] Test Catalog Troponin - [facility] Test Catalog Reference: Fourth [place] Definition of Myocardial Infarction. Journal of the [employer] 2018;72:5777-3254 Blood 10/31/2023 11:3 7 AM EDT 10/31/2023 11:50 AM EDT Narrative Resulting Agency Comment Spec In Lab Rosa Cornejo MD CHEMISTRY ORDERABLE S [facility] [place] [address] * ECHO COMPLETE (10/31/2023 8:52 AM EDT) Anatomical Region Laterality Modality Cardiac Other 10/31/2023 7:57 AM EDT Narrative 10/31/2023 9:45 AM EDT [address] [place] [address] ? Echocardiogram Report Name: TOM ADIN Dorene ? Study Date: 10/31/2023 07:57 AMBP: 106/76 mmHg ? Patient Location: [address] : 1940 ? Height: 163 cm ? Account: [id number] Age: 83 yrs ? Weight: 76 kg Gender: Female ?BSA: 1.8 m2 Ordering Physician: ROSA DEWEY Referring Physician: OMAIRA GIRON Performed By: HAFSA Carmichael Reason For Study: STEMI Interpreting Fellow: Raymond Warren. Exam Location: [facility]. Interpretation Summary -The left ventricle [...] is no prior echocardiogram for comparison. Procedure Complete-83284. Satisfactory quality. There is sinus bradycardia. Left [...] Note Edgard Wang MD - 10/31/2023 [address] [place] [address] Echocardiogram Report Name: ADIN SANTOS Study Date: 407:57 AMBP: 106/76 mmHg Patient Location: [address] : 1940 Height: 163 cm Account: [id number] Age: 83 yrs Weight: 76 kg Gender: Female BSA: 1.8 m2 Ordering Physician: ROSA DEWEY Referring Physician: OMAIRA GIRON Performed By: HAFSA Carmichael Reason For Study: STEMI Interpreting Fellow: Raymond Warren. Exam Location: [facility]. Interpretation Summary -The left ventricle [...] is no prior echocardiogram for comparison. Procedure Complete-77299. Satisfactory quality. There is sinus bradycardia. Left [...] * (ABNORMAL) Troponin (10/31/2023 8:51 AM EDT) [facility] Troponin-T, High Sensitivity 571(H) <=14 ng/L [facility] [...] can be found in the [facility] Test Catalog Troponin - [facility] Test Catalog Reference: Fourth [place] Definition of Myocardial Infarction. Journal of the [employer] 2018;72:7352-2884 Blood 10/31/2023 8:51 AM EDT 10/31/2023 9:12 AM EDT Narrative Resulting Agency Comment Spec In Lab Rosa Cornejo MD CHEMISTRY ORDERABLE S Performing Organization Address [facility] Co de Phone Number [facility] [place] [address] * CARDIAC CATHETERIZATION (10/31/2023 8:10 AM EDT) Anatomical Region Laterality Modality Other Narrative 11/07/2023 9:42 AM EDT ?[facility] ? Cardiac Catheterization/Intervention Report ? Patient Name: Adin Santos ? Procedure Date: 10/30/2023 ? A #: [id number] ? Primary Physician: Rosa Dewey I ? Case #: [id number] ? File Name: [id number] ? Catheterization Order Number: [id number] ? [facility] ? Final Report [place], [place] ? Patient Name: ? Adin M. Goguen ?ID#: ?[id number] ? : ?1940 ? Procedure Date: ? [...] as ASA Class III. The [facility] clinical frailty scale ?is 5: Mildly [...] was Emergent. The indication for ?the laborer pipeline visit is ACS less than or equal [...] A premounted 4.00 x 38 mm Andrea Rowan (RADHA) was deployed ? with a maximum [...] administered prior to arrival in the laborer pipeline. ?Recommended anti-platelet/anti-thrombotic regimen: ?Continue aspirin 81 mg daily for 12 months then stop. ?Continue clopidogrel 75 mg daily for indefinitely. ?These recommendations are made at the time of the intervention. Patient ?and provider preferences or a changing clinical situation may require ?modification of this regimen. Consult [facility] Interventional Cardiology for ?questions. ? Conclusions: ?* [...] Adin Santos Procedure Date: 10/30/2023 A #: [id number] Primary Physician: Rosa Dewey I Case #: [id number] File Name: [id number] Catheterization Order Number: [id number] [facility] FinalReport [place], [place] Patient Name: Adin Santos ID#:[id number] :1940 Procedure Date: October 30, 2023 Case [...] as ASA Class III. The [facility] clinical frailtyscale is 5: Mildly Frail. Diagnostic Tests: Electrocardiography: EKG was assessed by ECG. EKG was Abnormal. EKG showed STDeviation >= 0.5 mm, other abnormality and dynamic EKG changes. Medications Prior to Procedure: Aspirin, Angiotensin II Receptor Rodrick, Beta Rodrick andStatin. Indications for Diagnostic Cath: The priority of the diagnostic procedure was Emergent. Theindication for the laborer pipeline visit is ACS less than or equal [...] The priority for the procedure was Emergent.The [facility] indication for the procedure was STEMI-Immediate [...] A premounted 4.00 x 38 mm Andrea Rowan (RADHA) wasdeployed with a maximum inflation pressure [...] administered prior to arrival in the laborer pipeline. Recommended anti-platelet/anti-thrombotic regimen: Continue aspirin 81 mg daily for 12 months then stop. Continue clopidogrel 75 mg daily for indefinitely. These recommendations are made at the time of the intervention.Patient and provider preferences or a changing clinical situation mayrequire modification of this regimen. Consult [facility] Interventional Cardiologyfor questions. Conclusions: * Two vessel [...] (10/31/2023 4:21 AM EDT) [facility] Troponin-T, High Sensitivity 457(H) <=14 ng/L [facility] [...] can be found in the [facility] Test Catalog Troponin - [facility] Test Catalog Reference: Fourth [place] Definition of Myocardial Infarction. Journal of the [place] [employer] 2018;72:0496-3577 Blood 10/31/2023 4:21 AM EDT 10/31/2023 4:30 AM EDT Narrative Resulting Agency Comment Spec In Lab Rosa Cornejo MD CHEMISTRY ORDERABLE S Performing Organization Address City/State/[facility] Co de Phone Number [facility] [place] [address] * (ABNORMAL) Differential, Automated (10/31/2023 3:05 AM EDT) Neutrophil % 71.7 % [facility] Neutrophil Absolute 8.21(H) 1.70 - 6.10 x10(3)/mc L [facility] Lymph % 16.9 % [facility] Lymphocytes Abs 1.9 0.9 - 3.2 x10(3)/mc L [facility] Monocyte % 9.4 % [facility] Monocyte Abs 1.1(H) 0.3 - 0.9 x10(3)/mc L [facility] Eos % 1.3 % [facility] Eosinophils Abs 0.2 0.0 - 0.4 x10(3)/mc L [facility] Basophil % 0.4 % [facility] [...] ORDERABLE S [facility] [place] [address] * (ABNORMAL) Hemogram (10/31/2023 3:05 AM EDT) White Blood Cell 11.5(H) 4.0 - 9.5 x10(3)/ L [facility] Red Blood Cell 3.75(L) 4.00 - 5.21 x10(6)/mc L [facility] [...] Platelet 206 145 - 357 x10(3)/mc L [facility] RDW Standard Deviation 53.4(H) 37.0 - 46.0 fL [facility] RDW coefficient of variation 14.6(H) 11.5 - 14.1 % [facility] Mean Platelet Volume 11.1 7.6 - 12.9 fL [facility] NRBC% auto 0.0 % [facility] NRBC Absolute 0.000 0.000 - 0.000 x10(3)/mc L [facility] Blood 10/31/2023 3:05 AM EDT 10/31/2023 3:13 AM EDT Narrative Resulting Agency Comment Spec In Lab Qamar Gallardo MD HEMATOLOGY ORDERABLE S Performing Organization Address [facility] de Phone Number [facility] [place] [address] * (ABNORMAL) APTT (10/31/2023 3:05 AM EDT) [...] MD HEMATOLOGY ORDERABL ES Performing Organization Address [facility] de Phone Number [facility] [place] [address] * (ABNORMAL) Prothrombin Time (10/31/2023 3:05 AM [...] ORDERABL ES [facility] [place] [address] * (ABNORMAL) Differential, Automated (10/31/2023 1:37 AM EDT) Neutrophil % 71.1 % [facility] Neutrophil Absolute 7.53(H) 1.70 - 6.10 x10(3)/mc L [facility] Lymph % 18.0 % [facility] Lymphocytes Abs 1.9 0.9 - 3.2 x10(3)/ L [facility] Monocyte % 8.7 % [facility] Monocyte Abs 0.9 0.3 - 0.9 x10(3)/mc L [facility] Eos % 1.6 % [facility] Eosinophils Abs 0.2 0.0 - 0.4 x10(3)/mc L [facility] Basophil % 0.4 % [facility] [...] ORDERABLE S [facility] [place] [address] * (ABNORMAL) Hemogram (10/31/2023 1:37 AM EDT) [...] [facility] NRBC% auto 0.0 % [facility] NRBC Absolute 0.000 0.000 - 0.000 x10(3)/mc L [facility] Blood 10/31/2023 1:37 AM EDT 10/31/2023 1:46 AM EDT Narrative Resulting Agency Comment Spec In Lab Qamar Gallardo MD HEMATOLOGY ORDERABLE S [facility] [place] [address] * Phosphorus (10/31/2023 1:37 AM EDT) Phosphorus 3.2 2.5 - 4.5 mg/dL [facility] Blood 10/31/2023 1:37 AM EDT 10/31/2023 1:46 AM EDT Narrative Resulting Agency Comment Spec In Lab Rosa Cornejo MD CHEMISTRY ORDERABLE S Performing Organization Address City/[facility]/ZIP Co de Phone Number [facility] [place] [address] * Magnesium (10/31/2023 1:37 AM EDT) Magnesium 0.83 0.69 - 1.07 mmol/L [facility] Blood 10/31/2023 1:37 AM EDT 10/31/2023 1:46 AM EDT Narrative Resulting Agency Comment Spec In Lab Rosa Cornejo MD CHEMISTRY ORDERABLE S Performing Organization Address City/[facility]/ZIP Co de Phone Number [facility] [place] [address] * Basic Metabolic Panel (non-fasting) (10/31/2023 1:37 AM EDT) Glucose 114 65 - 199 mg/dL [facility] [...] ORDERABLE S [facility] [place] [address] * (ABNORMAL) Troponin (10/31/2023 1:37 AM EDT) [...] can be found in the [facility] Test Catalog Troponin - [facility] Test Catalog Reference: Fourth [place] Definition of Myocardial Infarction. Journal of the [employer] 2018;72:4666-8180 Blood 10/31/2023 1:37 AM EDT 10/31/2023 1:46 AM EDT Narrative Resulting Agency Comment Spec In Lab Rosa Cornejo MD CHEMISTRY ORDERABLE S Performing Organization Address City/[facility]/ZIP [place] [address] * EKG 12 Lead (10/31/2023 1:20 AM EDT) Ventricular rate 52 BPM MUSE SYSTEM Atrial Rate 52 BPM MUSE SYSTEM P-R Interval 224 ms MUSE SYSTEM QRS Duration 108 ms MUSE SYSTEM Q-T Interval 544 ms MUSE SYSTEM QTC Calculated (Bezet) 505 ms MUSE SYSTEM Calculated P [place] 90 degrees MUSE SYSTEM Calculated R [place] -57 degrees MUSE SYSTEM Calculated T [place] -63 degrees MUSE SYSTEM INTERPRETATION Sinus bradycardia [...] (Bezet) 497 ms MUSE SYSTEM Calculated P [place] 75 degrees MUSE SYSTEM Calculated R [place] -53 degrees MUSE SYSTEM Calculated T [place] -57 degrees MUSE SYSTEM INTERPRETATION Sinus bradycardia with 1st degree A-V block Left anterior fascicular block Moderate voltage criteria for LVH, may be normal variant ( R in aVL , [place] product ) T wave abnormality, consider inferior [...] View (10/30/2023 10:10 PM EDT) WORKSTATION ID [id number] DH RAD Anatomical Region Laterality Modality Chest [...] and low lung volumes. Findings similar to dining car hop radiograph from CT 10/30/2023. Thank you for letting us participate in the care of this patient. ??If you are a health care provider and have any questions regarding this report, please contact the number below. ??For patients who have questions please contact the health career based intervention coordinator that requested your imaging first. ? Electronically signed by: Wilson Mccartney MD, [facility] ([phone]), at 10/30/2023 10:32 PM Narrative 10/30/2023 10:32 [...] and low lung volumes. Findings similar to dining car hop radiograph from CT 10/30/2023. Thank you for letting us participate in the care of this patient. If youare a health care provider and have any questions regarding this report,please contact the number below. For patients who have questions please contactthe health career based intervention coordinator that requested your imaging first. Rosa Cornejo MD IMG DX ORDERABLES * Green Tube HOLD (10/30/2023 10:05 PM EDT) [facility] Green Hold Sample in lab. [facility] Blood Venous Draw / Unknown 10/30/2023 10:05 PM EDT 10/30/2023 10:13 PM EDT Qamar Gallardo MD CHEMISTRY ORDERABLES [facility] [place] [address] * (ABNORMAL) Differential, Automated (10/30/2023 10:05 PM EDT) Pathologist [facility] Neutrophil % 76.6 % [facility] Neutrophil Absolute 6.94(H) 1.70 - 6.10 x10(3)/mc L [facility] Lymph % 15.4 % [facility] Lymphocytes Abs 1.4 0.9 - 3.2 x10(3)/mc L [facility] Monocyte % 6.1 % [facility] Monocyte Abs 0.6 0.3 - 0.9 x10(3)/mc L [facility] Eos % 1.1 % [facility] Eosinophils Abs 0.1 0.0 - 0.4 x10(3)/mc L [facility] Basophil % 0.6 % NOR[facility] [...] MD HEMATOLOGY ORDERABLE S Performing Organization Address City/State/[facility] Co de Phone Number [facility] [place] [address] * (ABNORMAL) Hemogram (10/30/2023 10:05 PM EDT) [...] [facility] NRBC% auto 0.0 % [facility] NRBC Absolute 0.000 0.000 - 0.000 x10(3)/mc L [facility] Blood 10/30/2023 10:0 5 PM EDT 10/30/2023 10:12 PM EDT Narrative Resulting Agency Comment Spec In Lab Qamar Gallardo MD HEMATOLOGY ORDERABLE S Performing Organization Address City/[facility]/ZIP Co de Phone Number [facility] [place] [address] * Hemoglobin A1c (10/30/2023 10:05 PM EDT) [...] [id number] Estimated Average Glucose See note mg/dL [facility] Comment: Estimated Average Glucose not appropriate for patients over 70 years of age. Blood 10/30/2023 10:0 5 PM EDT 10/30/2023 10:12 PM EDT Narrative Resulting Agency Comment Spec In Lab Rosa Cornejo MD CHEMISTRY ORDERABLE S [facility] [place] [address] * Lipid Panel (Reflex Direct LDL) (10/30/2023 10:05 PM EDT) [facility] Cholesterol, Total 218 mg/dL Dorene [facility] Comment: Desirable: ? <200 mg/dL Borderline High: 200-239 mg/dL Higher: ?>fr=837 mg/dL Triglyceride 46 mg/dL [facility] Comment: Normal: ?<150 mg/dL Borderline High: 150-199 mg/dL High: ?200-499 mg/dL Very High: ? >lk=870 mg/dL HDL Cholesterol 64 mg/dL [facility] Comment: Females: High Risk: <50 mg/dL Males: High Risk: <40 mg/dL LDL Cholesterol 145 mg/dL [facility] Comment: Desirable: ? <100 mg/dL Above Desirable: 100-129 mg/dL Borderline High: 130-159 mg/dL High: ?160-189 mg/dL Very High: ? >os=938 mg/dL Lipid Interpretation See Note [facility] [...] individuals with atherosclerotic cardiovascular disease (ASCVD)or LDL >qs=338 mg/dL, use a high-intensity statin (40-80 mg [...] ORDERABLE S Performing Organization Address [facility] Co de Phone Number [facility] [place] [address] * TSH Woodruff (10/30/2023 10:05 PM EDT) Thyroid Stimulating Hormone 3.35 0.27 - 4.20 mcIU/mL [facility] Comment: Reference Interval (mcIU/mL): Females: ??First Trimester: 0.23-3.88 ??Second Trimester: 0.22-3.90 ??Third Trimester: 0.44-4.66 Blood 10/30/2023 10:0 5 PM EDT 10/30/2023 10:12 PM EDT Narrative Resulting Agency Comment Spec In Lab Rosa Cornejo MD CHEMISTRY ORDERABLE S Performing Organization Address [facility]/ZIP Co de Phone Number [facility] [place] [address] * pro-Brain Natriuretic Peptide (10/30/2023 10:05 PM EDT) NT-proBNP 375 <=449 pg/mL [facility] Blood 10/30/2023 10:0 5 PM EDT 10/30/2023 10:12 PM EDT Narrative Resulting Agency Comment Spec In Lab Rosa Cornejo MD CHEMISTRY ORDERABLE S [facility] [place] [address] * (ABNORMAL) Comprehensive metabolic panel (non-fasting) (10/30/2023 10:05 PM EDT) Pathologist [facility] Glucose 121 65 - 199 mg/dL [facility] [...] MD CHEMISTRY ORDERABLE S Performing Organization Address City/[facility]/ZIP Co de Phone Number [facility] [place] [address] * Phosphorus (10/30/2023 10:05 PM EDT) Phosphorus 3.3 2.5 - 4.5 mg/dL [facility] Blood 10/30/2023 10:0 5 PM EDT 10/30/2023 10:12 PM EDT Narrative Resulting Agency Comment Spec In Lab Rosa Cornejo MD CHEMISTRY ORDERABLE S [facility] [place] [address] * Magnesium (10/30/2023 10:05 PM EDT) Magnesium 0.86 0.69 - 1.07 mmol/L [facility] Blood 10/30/2023 10:0 5 PM EDT 10/30/2023 10:12 PM EDT Narrative Resulting Agency Comment Spec In Lab Rosa Cornejo MD CHEMISTRY ORDERABLE S Performing Organization Address City/[facility]/ZIP Co de Phone Number [facility] [place] [address] * (ABNORMAL) Troponin (10/30/2023 10:05 PM EDT) [...] can be found in the [facility] Test Catalog Troponin - [facility] Test Catalog Reference: Fourth [place] Definition of Myocardial Infarction. Journal of the [place] College [employer] 2018;72:6871-6628 Blood 10/30/2023 10:0 5 PM EDT 10/30/2023 10:12 PM EDT Narrative Resulting Agency Comment Spec In Lab Rosa Cornejo MD CHEMISTRY ORDERABLE S Performing Organization Address City/[facility]/ZIP Co de Phone Number [facility] [place] [address] * EKG 12 Lead (10/30/2023 8:21 PM EDT) Ventricular rate 49 BPM MUSE SYSTEM Atrial Rate 49 BPM MUSE SYSTEM P-R Interval 230 ms MUSE SYSTEM QRS Duration 96 ms MUSE SYSTEM Q-T Interval 526 ms MUSE SYSTEM QTC Calculated (Bezet) 475 ms MUSE SYSTEM Calculated P [place] 98 degrees MUSE SYSTEM Calculated R [place] -48 degrees MUSE SYSTEM Calculated T [place] -51 degrees MUSE SYSTEM INTERPRETATION Sinus bradycardia [...] Provider: Lolly Leblanc, TANESHA)1659 (Stopped - Provider: Mayr Sweeney, TANESHA)1700 (New Bag - Provider: Mary [...] Provider: Mary Sweeney RN)2012 (Given - Provider: Dainca Shipley RN) 0820 (Given - Provider: Lucretia [...] - Reason: Transfer to a Procedural area)1548 ([facility] Unhold - Provider: Admin Adt) fentaNYL (pf) [...] - Reason: Transfer to a Procedural area)1548 ([facility] Unhold - Provider: Admin Adt) midazolam (pf) [...] documented as of this encounter Care Teams Welding Equipment Repairer Relationship Specialty Start Date End Date Rosie Mathews MD [address] [place] [id number] PCP - General Family Medicine 11/25/17 11/23/23 documented as of this encounter
--- OUTSIDE RECORDS SUMMARY | 2024-03-02 10:37 | XMS_ITS | Encounter Summary ---
Author Organization [facility] Address [address] [place] [address] Care Team Providers Care Internal Medicine Doctor Name Role Phone Kirsten Bateman MD Primary Care Provider [phone] Reason for Visit * Reason Comments Hearing Loss tinnitus Encounter Details Date Type Department Care Team (Latest Contact Info) Description 01/15/2010 10:10 EDT Office Visit [address] [address] Unknown, ProviderMD Ray Farooq MD [address] [place] [address] [address] Sensorineural hearing loss, bilateral; Subjective [...] Ray Farooq MD - 01/28/2010 1108 EDT [facility] PRO[facility]ESS/FOLLOWUP NOTE - 01/15/2010 CHIEF COMPLAINT: [...] 01/28/2010 11:08 Ray Farooq MD - Ray Faoroq MD - [facility] Job ID: SM Doc ID: [id number] Ext Doc ID: [id number] cc: Kirsten Bateman MD * Ray Farooq [...] tinnitus documented in this encounter Care Teams Internal Medicine Doctor Relationship Specialty Start Date End Date Kirsten Bateman MD [address] [place] [address] PCP - General 01/13/10 documented as of this encounter
--- OUTSIDE RECORDS SUMMARY | 2024-03-02 10:37 | XMS_ITS | Encounter Summary ---
Author Organization [facility] Address [facility] [place] [address] Care Team Providers Care Bufferer Name Role Phone Rosie Mathews MD Primary Care Provider [phone] Encounter Details Date Type Department Care Team (Late st Contact Info) Description 10/30/2023 [place] [address] Jose Lee MD [facility] [place] [address] Social History Tobacco Use Types Packs/Day Years Used Date Smoking Tobacco: Former Smokeless Tobacco: Never Alcohol Use Standard Drinks/Week Comments Not Currently 0 (1 standard drink = 0.6 oz pur e alcohol) [facility] Utilities Answer Date Recorded In the past 12 months has th e [employer], gas, oil, or water [employer] threatened to shut off services in your [...] 11:20 AM EDT Office Visit Cardiology at [address] [address] Izaiah Meyer MD [facility] [place] [place] [address] documented as of this encounter Visit Diagnoses Not on filedocumented in this encounter Additional Health Concerns Infection Onset Date Last Indicated Resolved Time Rule Out Respiratory 11/02/2023 11/02/2023 024 12:22 PM EDT Rule Out COVID-19 11/02/2023 11/02/2023 11/02/2023 12:22 PM EDT documented as of this encounter Care Teams Bufferer Relationship Specialty Start Date End Date Rosie Mathews MD [address] [place] [address] PCP - General Family Medicine 11/25/17 11/23/23 documented as of this encounter
--- OUTSIDE RECORDS SUMMARY | 2024-03-02 10:37 | XMS_ITS | Clinical Summary ---
Author Organization [facility] Address [address] [place] [address] Care Team Providers Care Big Data Lead Name Role Phone Kirsten Bateman MD Primary Care Provider [phone] Allergies Active Allergy Reactions Criticality Noted Date [...] 1999 Fall Risk Screening 2004 COVID-19 Vaccine (2022- season) 2024 Care Teams Big Data Lead Relationship Specialty Start Date End Date Kirsten Bateman MD [address] [place] [phone] PCP - General 01/13/10
--- OUTSIDE RECORDS SUMMARY | 2024-03-02 10:37 | XMS_ITS | Encounter Summary ---
Author Organization [facility] Address [facility] [place] [address] Care Team Providers Care Display Trimmer Name Role Phone Rosie Mathews MD Primary Care Provider [phone] Reason for Visit * Consultation (Routine) - Closed Specialty Diagnoses / Procedures Referred By John hunt Referred To Contact Audiology Diagnoses Hearing assessment and treatment options Karson John MD [address] [place] [address] [facility] [address] [place] [phone] Referral ID Status Reason Start Date Expiration Date V isits Requested Visits Authorized [id number] Closed Consult, Test & Treat Connection Center 11/22/2017 11/22/2018 1 1 Encounter Details Date Type Department Care Team (Latest Contact Info) Description 11/30/2017 3:15 PM EDT Office Visit Audiology at [address] [address] Georgette Onofre AUD [facility] [place] [address] Sensorineural hearing loss, bilateral; Bilateral [...] Lyla Goodrich Age: 77 y.o. Referring provider: Kasron John MD Date: 11/30/2017 Reason for referral: [...] 10-15 years. Ms. Goodrich obtained binaural [facility] in-the-ear hearingaids nine years ago in [place], [place]. She stated she continues to experience [...] tone audiogram. SNR loss is the increased yalbdw-ax-jinap ratio required by an individual to understand [...] not hesitate to contact this Section at [phone] if there are questions regarding this report or its recommendations. Romeo Becker [place] [id number] Attachment: audiogram CC: MD Karson Loo MD Laurmarco a Catherine Edvinjonatanjosue [facility] [address] [place] [phone] documented in this encounter Plan of Treatment Upcoming Encounters Date Type Department Care Team (Late st Contact Info) Description 03/29/2024 11:20 AM EDT Office Visit Cardiology at [address] [place] [address] Izaiah Meyer MD [facility] [place] [address] documented as of this encounter Procedures Procedure [...] tinnitus documented in this encounter Care Teams Display Trimmer Relationship Specialty Start Date End Date Rosie Mathews MD [address] [place] [address] PCP - General Family Medicine 11/25/17 11/23/23 documented as of this encounter"
--- OUTSIDE RECORDS SUMMARY | 2024-03-02 10:37 | XMS_ITS | Encounter Summary ---
Author Organization [facility] Address [address] [place] [address] Care Team Providers Care Civil Project Engineer Name Role Phone Kirsten Bateman MD Primary Care Provider [phone] Encounter Details Date Type Department Care Team (Late st Contact Info) Description 01/27/2021 Lab Requisition [facility] Pathology & Laboratory Medicine - [facility] [address] [place] [address] Outr Resulting Lab, Provider Social History Tobacco [...] Lab MICROBIOLOGY - GENERAL ORDERABLES [facility] [address] [place] [address] * COVID-19 TESTING (01/26/2021 16:45 EDT) COVID-19 rt-PCR Result Negative Negative 01/28/2021 13:31 EDT [facility] Comment: This test has not [...] developed and its performance characteristics determined by [facility]. It has not been cleared or [...] testing. This test is based on the [facility] COVID-19 Emergency Use Authorization (EUA) assay, with minor modification as defined by the FDA Performed on the SquareTradeo 7 Pro RT-PCR System. Performing Lab [facility] 01/28/2021 13:31 EDT [facility] Swab 01/26/2021 16:4 5 EDT 01/27/2021 15:46 EDT Provider Outr Resulting Lab MICROBIOLOGY - GENERAL ORDERABLES [facility] [address] [place] [address] documented in this encounter Visit Diagnoses Not on filedocumented in this encounter Care Teams Civil Project Engineer Relationship Specialty Start Date End Date Kirsten Bateman MD [address] [place] [address] PCP - General 01/13/10 documented as of this encounter
--- OUTSIDE RECORDS SUMMARY | 2024-03-02 10:37 | XMS_ITS | Encounter Summary ---
Author Organization [facility] Address [facility] [place] [address] Care Team Providers Care Sales Representative Supervisor Name Role Phone Rosie Mathews MD Primary Care Provider [phone] Encounter Details Date Type Department Care Team (Late st Contact Info) Description 10/30/2023 External Results Transfer Center [facility] [place] [address] Social History Tobacco Use Types Packs/Day Years Used Date Smoking Tobacco: Former Smokeless Tobacco: Never Alcohol Use Standard Drinks/Week Comments Not Currently 0 (1 standard drink = 0.6 oz pur e alcohol) [facility] Utilities Answer Date Recorded In the past 12 months has e [employer], gas, oil, or water [employer] threatened to shut off services in your [...] AM EDT Office Visit Cardiology at [address] [address] Izaiah Meyer MD [facility] [place] [address] documented as of this encounter Procedures Procedure [...] on filedocumented in this encounter Care Teams Sales Representative Supervisor Relationship Specialty Start Date End Date Rosie Mathews MD [address] [place] [address] PCP - General Family Medicine 11/25/17 11/23/23 documented as of this encounter
--- OUTSIDE RECORDS SUMMARY | 2024-03-02 10:37 | XMS_ITS | Encounter Summary ---
Author Organization [facility] Address [facility] [place] [address] Care Team Providers Care Cushion Filler Name Role Phone Rosie Mathews MD Primary Care Provider [phone] Encounter Details Date Type Department Care Team (Late st Contact Info) Description 10/30/2023 [place] [address] Jose Lee MD [facility] [place] [address] Social History Tobacco Use Types Packs/Day Years [...] Provider: Bree Patient Location: [facility] HPI: 83 yoF w/ PMHx of HTN, [...] the patient condition. Jose Lee MD Sales And Marketing Executive documented in this encounter Plan of Treatment Upcoming Encounters Date Type Department Care Team (Late st Contact Info) Description 03/29/2024 11:20 AM EDT Office Visit Cardiology at [address] [place] [address] Izaiah Meyer MD [facility] [place] [address] documented as of this encounter Visit Diagnoses Not on filedocumented in this encounter Care Teams Cushion Filler Relationship Specialty Start Date End Date Rosie Mathews MD [address] [place] [address] PCP - General Family Medicine 11/25/17 11/23/23 documented as of this encounter
--- OUTSIDE RECORDS SUMMARY | 2024-03-02 10:37 | XMS_ITS | Encounter Summary ---
Author Organization [facility] Address [address] [place] [address] Care Team Providers Care Rehab Care Assistant Name Role Phone Unavailable Primary Care Provider Unavailabl e Encounter Details Date Type Department Care Team (Late st Contact Info) Description 01/10/2008 Before PRISM Converted Visit (Maple) [facility] - Maple conversion [address] [place] [address] Ray Farooq MD [address] [place] [address] Social History Tobacco Use Types Packs/Day Years Used Date Smoking Tobacco: Never Assessed Sex and Gender Information Value Date Recorded Sex Assigned at Not on file Gender Identity Not on file Sexual Orientation Not on file documented as of this encounter Consult Notes * Ray Farooq MD - 03/21/2009 6551 EDT [facility] - 01/10/2008 Kirsten Bateman MD [facility] [address] [place] [address] Bateman: Chief complaint: Hearing loss. History of present illness: Fkxmx-zpnyp-ctei-old female with along history of bilateral hearing [...] aspirin, vitamin E, C, B12, B125 complex, Torey-Sedley, EPA fatty acid, coral calcium complex, potassium chloride, Diovan, and hormone essentials. She has drug allergies to cortisone, Percocet, and hydrocodone. Family history is significant for cancer. Social history: The patient is a nonsmoker, nondrinker. She lives in [place]. Review of systems is significant for allergies, [...] Tosin Farooq MD - [facility] Job ID: [id number] Doc ID: [id number] cc: Kirsten Bateman MD cc: Kirsten Bateman MD documented in this encounter Plan of Treatment Not on file documented as of this encounter Visit Diagnoses Not on filedocumented in this encounter
--- OUTSIDE RECORDS SUMMARY | 2024-03-02 10:37 | XMS_ITS | Referral Summary ---
Author Organization [facility] Address [address] [address] Care Team Providers Care Child Care Counselor Name Role Phone Kirsten Bateman MD Primary Care Provider [phone] Allergies Active Allergy Reactions Criticality Noted Date [...] of Treatment Not on file Care Teams Child Care Counselor Relationship Specialty Start Date End Date Kirsten Bateman MD [address] [place] [address] [facility] - General 01/13/10
--- OUTSIDE RECORDS SUMMARY | 2024-03-02 10:37 | XMS_ITS | Encounter Summary ---
Author Organization [facility] Address [facility] [place] [address] Care Team Providers Care Set Up Mechanic Name Role Phone Rosie Mathews MD Primary Care Provider [phone] Reason for Visit * Reason Comments Skin Lesion * Consultation (Routine) - Closed Specialty Diagnoses / Procedures Referred By John hunt Referred To Contact Dermatology Diagnoses facial skin lesion Procedures pt would like to be seen PRADEEP Rosie Mathews MD [address] [place] [address] [facility] Dermatology [address] [place] [address] Referral ID Status Reason Start Date Expiration Date V isits Requested Visits Authorized [id number] Closed Consult, Test & Treat Connection Center 10/25/2017 10/25/2018 1 1 Encounter Details Date Type Department Care Team (Late st Contact Info) Description 11/25/2017 4:30 PM EDT Office Visit Dermatology at [facility] [address] [place] [address] Call, Radu Go MD [facility] DR SHERLYN [place] [address] Seborrheic keratosis; Fibrous papule of [...] by Radu Tom MD Resident in Dermatology [facility] Patient seen in conjunction with staff day guard: Terri Hale MD Section of Dermatology [facility] * Terri Hale MD - [...] 11:20 AM EDT Office Visit Cardiology at [address] [address] Izaiah Meyer MD [facility] [place] [address] documented as of this encounter Visit Diagnoses Diagnosis Seborrheic keratosis Other seborrheic keratosis Fibrous papule of nose Benign neoplasm of skin of other and unspecified parts of face Skin tags, multiple acquired documented in this encounter Care Teams Set Up Mechanic Relationship Specialty Start Date End Date Rosie Mathews MD [address] [place] [address] PCP - General Family Medicine 11/25/17 11/23/23 documented as of this encounter
--- OUTSIDE RECORDS SUMMARY | 2024-03-02 10:37 | XMS_ITS | Encounter Summary ---
Author Organization [facility] Address [address] [place] [address] Care Team Providers Care Transitional Studies Instructor Name Role Phone Kirsten Bateman MD Primary Care Provider [phone] Encounter Details Date Type Department Care Team (Late st Contact Info) Description 01/14/2010 Abstract Used for ABSTRACTING Data [phone] Kirsten Bateman MD [address] [place] [address] Social History Tobacco Use Types [...] OIL/COCONUT OIL (FATTY ACID BASE MISC) by [facility].(Non-Drug; Combo Route) route. EPA CYANOCOBALAMIN (VITAMIN B-12 ORAL) Take by mouth. ASCORBIC ACID (VITAMIN C ORAL) Take by mouth. VITAMIN E ACETATE (VITAMIN E ORAL) Take by mouth. ASPIRIN ORAL Take by mouth. AMITRIPTYLINE HCL (AMITRIPTYLINE ORAL) Take by mouth. ATENOLOL ORAL Take by mouth. SIMVASTATIN ORAL Take by mouth. added in this encounter Care Teams Transitional Studies Instructor Relationship Specialty Start Date End Date Kirsten Bateman MD [address] [place] [phone] PCP - General 01/13/10 documented as of this encounter
--- OUTSIDE RECORDS SUMMARY | 2024-03-05 10:21 | XMS_ITS | Encounter Summary ---
Author Organization [facility] Address [facility] [place] [address] Care Team Providers Care Fx Artist Name Role Phone Masood Pierson MD Primary Care Provider [phone] Encounter Details Date Type Department Care Team (Late st Contact Info) Description 02/24/2024 11:10 PM EDT Ancillary Procedure Radiology Library at [facility] [place] [phone] Masood Pierson MD [address] [place], [place] [id number] Social History Tobacco Use Types Packs/Day Years Used Date Smoking Tobacco: Former Smokeless Tobacco: Never Alcohol Use Standard Drinks/Week Comments Not Currently 0 (1 standard drink = 0.6 oz pur e alcohol) [facility] Utilities Answer Date Recorded In the past [...] AM EDT Office Visit Cardiology at [address] [address] Izaiah Meyer MD [facility] [place] [address] documented as of this encounter Procedures Procedure [...] Pierson MD IMG FILM LIBRARY ORD ERABLES [facility] [place], [place] documented in this encounter Visit Diagnoses Not on filedocumented in this encounter Care Teams Fx Artist Relationship Specialty Start Date End Date Masood Pierson MD [address] [place] [address] PCP - General Family Medicine 11/24/23 documented as of this encounter
--- OUTSIDE RECORDS SUMMARY | 2024-03-05 10:21 | XMS_ITS | Encounter Summary ---
Author Organization [facility] Address [facility] [address] Care Team Providers Care Rail Manager Name Role Phone Rosie Mathews MD Primary Care Provider [phone] Reason for Visit * Reason Onset Date Comments Referral 11/03/2023 Coronary Artery Disease 11/03/2023 Encounter Details Date Type Department Care Team (Late st Contact Info) Description 11/03/2023 Telephone Cardiology at [address] [address] Andressa Machado, river boat captain; Coronary Artery Disease Social History Tobacco Use Types Packs/Day Years Used Date Smoking Tobacco: Former Smokeless Tobacco: Never Alcohol Use Standard Drinks/Week Comments Not Currently 0 (1 standard drink = 0.6 oz pur e alcohol) [facility] Utilities Answer Date Recorded In the past 12 months has e [email or web address], gas, oil, or water [employer] threatened to shut off services in your [...] place to sleep or slept in a snf (including now)? No 11/01/2023 IPV Inpatient Questions [...] were not included. [facility] V[facility] Clinic [address] [place] [address] Lyla was referred to this Cardiology clinic in [place] for post cardiac cath 10/31 for STEMI follow up as part of her discharge plan from [facility] documented in this encounter Plan of Treatment Upcoming Encounters Date Type Department Care Team (Late st Contact Info) Description 03/29/2024 11:20 AM EDT Office Visit Cardiology at [address] [place] [address] Izaiah Meyer MD [facility] [place] [address] documented as of this encounter Visit Diagnoses Not on filedocumented in this encounter Care Teams Rail Manager Relationship Specialty Start Date End Date Rosie Mathews MD [address] [place] [address] PCP - General Family Medicine 11/25/17 11/23/23 documented as of this encounter
--- OUTSIDE RECORDS SUMMARY | 2024-03-05 10:21 | XMS_ITS | Encounter Summary ---
Author Organization [facility] Address [facility] [place] [address] Care Team Providers Care Water Valve Repairer Name Role Phone Masood Pierson MD Primary Care Provider [phone] Encounter Details Date Type Department Care Team (Late st Contact Info) Description 02/24/2024 External Results Transfer Center [facility] [place] [phone] Social History Tobacco Use Types Packs/Day Years Used Date Smoking Tobacco: Former Smokeless Tobacco: Never Alcohol Use Standard Drinks/Week Comments Not Currently 0 (1 standard drink = 0.6 oz pur e alcohol) [facility] Utilities Answer Date Recorded In the past 12 months has [employer], gas, oil, or water [employer] threatened to shut off services in your [...] AM EDT Office Visit Cardiology at [address] [place] [address] Izaiah Meyer MD [facility] [place] [address] documented as of this encounter Procedures Procedure Name Priority Date/Time Associated Diagnosis Comments MISC EXTERNAL CARDIOLOGY RESULT Routine 02/24/2024 11:10 PM EDT documented in this encounter Results * External Cardiology Result (02/24/2024 11:10 PM EDT) Anatomical Region Laterality Modality Other Historical Provider EXTERNAL CARDIOLO GY RESULT documented in this encounter Visit Diagnoses Not on filedocumented in this encounter Care Teams Water Valve Repairer Relationship Specialty Start Date End Date Masood Pierson MD [address] [place] [address] PCP - General Family Medicine 11/24/23 documented as of this encounter
--- OUTSIDE RECORDS SUMMARY | 2024-03-05 10:21 | XMS_ITS | Encounter Summary ---
Author Organization [facility] Address [facility] [place] [address] Care Team Providers Care Director Of Outreach Name Role Phone Masood Pierson MD Primary Care Provider [phone] Encounter Details Date Type Department Care Team (Late st Contact Info) Description 02/27/2024 Telephone Cardiology at [address] [place] [address] Izaiah Meyer MD [facility] [place] [address] Social History Tobacco Use Types Packs/Day Years Used Date Smoking Tobacco: Former Smokeless Tobacco: Never Alcohol Use Standard Drinks/Week Comments Not Currently 0 (1 standard drink = 0.6 oz pur e alcohol) [facility] Utilities Answer Date Recorded In the past 12 months has [employer], gas, oil, or water [employer] threatened to shut off services in your [...] 3:30 PM EDT Lyla was seen at [facility] this past Tuesday for chest pain and returned to the ED Tuesday for back pain.Per patient both times it was determined she was having no cardiac issues but she was told to let her agricultural equipment sales manager know. At present she is not having [...] AM EDT Office Visit Cardiology at [address] [address] Izaiah Meyer MD [facility] [place] [address] documented as of this encounter Visit Diagnoses Not on filedocumented in this encounter Care Teams Director Of Outreach Relationship Specialty Start Date End Date Masood Pierson MD [address] [place] [address] PCP - General Family Medicine 11/24/23 documented as of this encounter
--- OUTSIDE RECORDS SUMMARY | 2024-03-05 10:21 | XMS_ITS | Encounter Summary ---
Author Organization [facility] Address [facility] [place] [address] Care Team Providers Care Gun Numberer Name Role Phone Masood Pierson MD Primary Care Provider [phone] Encounter Details Date Type Department Care Team (Latest Contact Info) Description 11/24/2023 Travel Social History Tobacco Use Types Packs/Day Years Used Date Smoking Tobacco: Former Smokeless Tobacco: Never Alcohol Use Standard Drinks/Week Comments Not Currently 0 (1 standard drink = 0.6 oz pur e alcohol) [facility] Utilities Answer Date Recorded In [...] AM EDT Office Visit Cardiology at [address] [address] Izaiah Meyer MD [facility] [place] [address] documented as of this encounter Visit Diagnoses Not on filedocumented in this encounter Care Teams Gun Numberer Relationship Specialty Start Date End Date Masood Pierson MD [address] [place] [address] PCP - General Family Medicine 11/24/23 documented as of this encounter
--- OUTSIDE RECORDS SUMMARY | 2024-03-05 10:21 | XMS_ITS | Encounter Summary ---
Author Organization [facility] Address [facility] [place] [address] Care Team Providers Care Food Safety Manager Name Role Phone Rosie Mathews MD Primary Care Provider [phone] Reason for Referral * Consultation (Routine) - Authorized Specialty Diagnoses / Procedures Referred By Contac t Referred To Contact Cardiology Diagnoses 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 Rosa Hugo MD [facility] [place] [address] Cardiac Rehab, [address] [place] [address] Referral ID Status Reason Start Date Expiration Date Visits Requested Visits Authorized [id number] Authorized Consult, Test & Treat Non PCP 11/03/2023 05/01/2024 36 36 * Home Health Care (Routine) - Authorized Specialty Diagnoses / Procedures Referred By Contac t Referred To Contact Diagnoses Unstable angina Rosa Hugo MD [facility] [place] [address] Referral ID Status Reason Start Date Expiration Date Visits Requested Visits Authorized [id number] Authorized Consult, Test & Treat 11/03/2023 05/01/2024 999 999 Reason for Visit * Auth/Cert (Routine) Specialty Diagnoses / Procedures Referred By John hunt Referred To Contact Diagnoses Unstable angina Chest pain NSTEMI Procedures CARDIAC CATHETERIZATION Rosa Dewey MD [facility] [place] [address] [facility] Referral ID Status Reason Start Date Expiration Date Visits Re quested Visits Authorized [id number] 1 1 Encounter Details Date Type Department Care Team (Latest Contact Info) Description 10/30/2023 5:11 PM EDT - 11/03/2023 5:13 PM EDT Hospital Encounter Heart and Vascular Unit Level 4 [place] [address] Rosa Dewey MD [facility] [place] [address] Jean Laboy MD [facility] [place] [address] Rosa Hugo MD [facility] [place] [address] 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; Tachycardia; Unstable angina Discharge Disposition: Home Social History Tobacco Use Types Packs/Day Years Used Date Smoking Tobacco: Former Smokeless Tobacco: Never Alcohol Use Standard Drinks/Week Comments Not Currently 0 (1 standard drink = 0.6 oz pur e alcohol) [facility] Utilities Answer Date Recorded In the past 12 months has e [employer], gas, oil, or water [employer] threatened to shut off services in your [...] [facility] [place] [facility] as a possible STEMI alert with acute onset chest pain. The patient reports that her symptoms initially began on Tuesday when she was walking to [employer] and experienced bilateral arm heaviness while walking with no other symptoms. Then, this afternoon shereports developing bilateral achy shoulder pain and nonradiating substernal left-sided chest pressure that was 7/10 in severity after coming [place]. The patient denies any associated fevers, chills, [...] the patient was taken directly to the Flagsetter. Two lesions were discovered: one in the prox RCA (felt to almost be a GROCERY DELIVERER but they were able to wire, balloon, [...] dose administered prior to arrival in the salvage laborer. Recommended anti-platelet/anti-thrombotic regimen: Continue aspirin 81 [...] and low lung volumes. Findings similar to molder operator radiograph from CT 10/30/2023. Pending Studies [...] 10:40 AM Izaiah Meyer MD Cardiology at [place] Arrive at: [facility] [address] [phone] Future Orders Complete By Expires Referral to Cardiac Rehab [[id number] Custom] As directed Process Instructions: If no progress note charted, please enter Clinical details in comments. Scheduling Instructions: Questions: My question or request is: STEMI. Cardiac rehab at [facility]. Referral to Home Health [REF34 Custom] As directed Process Instructions: If no progress note charted, please enter Clinical details in comments. Scheduling Instructions: Comments: Please evaluate Adin Santos for admission to Home Health. [address] [facility] [address] (home) Date of : 1940 Inpatient DOCUMENTATION FOR VNA SERVICES (INCLUDING THOSE PATIENTS WITH MEDICARE COVERAGE REQUIRING HOME VNA SERVICES AND/OR HOSPICE SERVICES) PATIENT'S LOCATION: Adin Santos [address] [facility] [phone] (home) Cell: Telephone Information: Intellectual Property Paralegal's Name: self In discussion with the attending physician, it is certified that this patient is under their care and that they, or a Nurse Practitioner, Clinical Nurse specialist or Physician Diet Kitchen Cook who is working directly with them, had [...] regarding health issues HOME HEALTH CARE AGENCY: [facility] [address] [place] [address] START OF CARE: within 24-48 hours of [...] Mathews MD [address] / [facility] [address] . All A agencies which [...] Mathews MD / Dr. Masood Pierson [address] [place] [address] 11/09/23 1:55 PM arrival for 2:10 PM appointment Benefits Coordinator: Izaiah Meyer MD [address] [place] [address] , 11/24/2023 10:40 AM Your Inpatient Medical Team at [facility] Name(s) of your inpatient provider(s): Attending physician: Rosa Hugo MD Resident physicians: Emile Robles MD; Elmer Tamez MD If you have non-emergent questions, prior to your follow-up visit call: Tuesday-Tuesday between the hours of 8AM-5PM please call the Cardiology Clinic [phone] to speak with a nurse. All other hours please call the Hospital [facility] [phone] and ask to speak to the supervisor air conditioning installer on-call. Your Primary Care Provider Rosie Mathews MD [phone] For questions regarding this document or issues relating to this hospitalization on the Medical Service, please contact your inpatient physician through the [facility] . Issues afterhours and on weekends will be handled by the Benefits Coordinator staff on-call. Associated attestation - Rosa Hugo [...] MD / Dr. Masood Pierson [address] [place] [address] 11/09/23 1:55 PM arrival for 2:10 PM appointment Benefits Coordinator: Izaiah Meyer MD [address] [place] [address] , 11/24/2023 10:40 AM Your Inpatient Medical Team at [facility] Name(s) of your inpatient provider(s): Attending physician: Rosa Hugo MD Resident physicians: Emile Robles MD; Elmer Tamez MD If you have non-emergent questions, prior to your follow-up visit call: Tuesday-Tuesday between the hours of 8AM-5PM please call the Cardiology Clinic [phone] to speak with a nurse. All other hours please call the [facility] [phone] and ask to speak to the supervisor air conditioning installer on-call. 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 Assessment: Patient is in the bathroom at the time of this visit. Not a good time for Infrastructure Project Manager visit. Intervention and Outcome: An attempted [...] [facility] [...] and low lung volumes. Findings similar to molder operator radiograph from CT 10/30/2023. Scheduled Medications: [...] [facility] [...] Resident on Cardiology Service Cardiology S1 (Pager [phone]) Note written in conjunction with Claudio Perla [facility] Medical Student, MS3 Associated attestation - [...] [facility] [place] [facility] transfer from [facility] as a possible STEMI alert with acute onset chest pain. Active Problems: Active Hospital Problems Diagnosis Unstable angina Resolved Hospital Problems No resolved problems to display. 24 hr events: - Cath'd yesterday with lesion in the proximal RCA (initially thought it was GROCERY DELIVERER but they were ableto wire, balloon and [...] and low lung volumes. Findings similar to molder operator radiograph from CT 10/30/2023. TTE (05/13): [...] [facility] [...] Resident on Cardiology Service Cardiology S1 (Pager [phone]) Note written in conjunction with Clauido Perla [facility] Medical Student, MS3 Associated attestation - [...] PCP: Rosie Mathews MD PCP phone number: [phone] Date of Admission: 10/30/2023 ( Hospital Day 0 days ) Attending:Rosa Cornejo MD ID: Adin Santos is a 83 y.o. female PMH significant for hypertension and hyperlipidemia who presented [facility] from [facility] as a possible STEMI alert with acute onset chest pain. The patient reports that her symptoms initially began on Tuesday when she was walking to [employer] and experienced bilateral arm heaviness while walking with no other symptoms. Then, this afternoon shereports developing bilateral achy shoulder pain and nonradiating substernal left-sided chest pressure that was 7/10 in severity after coming home from [place]. The patient denies any associated fevers, chills, [...] the patient was taken directly to the Flagsetter. 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 Findings similar to molder operator radiograph from CT 10/30/2023. Assessment & Plan: Adin Santos is a 83 y.o. female PMH significant for hypertension and hyperlipidemia who presented to [facility] [...] with HTN HLD transferred with chest from [facility]. BP 217/68, HR 71 EKG [...] information for follow-up Home Health & Hospice, [place] [address] [place] [address] TANESHA BOYCE confirmed with [facility] that they will see the patient [...] N/A Patient is insured through: Primary Insurance: [employer] MANAGED MEDICARE Payor: [email or web address] MEDICARE / Plan: [employer] MANAGED MEDICARE PPO / Product Type: *No [...] in the room. Electrolytes replaced, see MAR. cath lab tech sites remained C/D/I with baseline ecchymosis unchanged. Pt complained of back pain, lidocaine patch given. Right IV infiltrated during infusion, patient is marked with sharpie, IV removed. See flowsheet for I+O's and safety rounding. Patient is able to make needs known and call capps within reach. PLAN MOVING FORWARD: Monitor Tele, control BP, monitor salvage laborer sites, D/C Planning INDIVIDUALIZED FALL PREVENTION [...] in an outpatient cardiac rehabilitation program at [facility] was discussed. Patient agrees to [...] and above on RA. PT went to salvage laborer today. Left fem site oozed throughout [...] MOVING FORWARD: Monitor Tele, control BP, monitor salvage laborer sites, D/C Planning INDIVIDUALIZED FALL PREVENTION [...] Admitted From: Transfer from another hospital Location: [facility] Reason for Hospitalization: chest pain Covid Vaccination Status: 1st, 2nd & booster Past medical History: No past medical history on file. Hospitalizations Within the Past 30 Days: no previous admission in last 30 days Current Decision-Making Capacity: Self If AD's have not been completed the following surrogate would be surrogate decision maker per [place] surrogate decision making law. (Only good for 180 days) Any patient receiving care in [place] must abide by [place] law. The hierarchy for surrogate decision making [...] The agent with financial power of assistant county attorney or a conservator appointed in [...] steady place to sleep or slept in [facility] (including now)?: No In the past [...] toilet seat Home Address confirmed as: [address] [place] [id number] Social & Family Supports: All names listed below confirmed with patient as current and correct Extended Emergency Contact Information Primary Emergency Contact: Iris Downing Address: [address] [place], [place] [address] [place] [address] Mobile Relation: Child Secondary Emergency Contact: Karen More Address: [address] Mobile Relation: Child Current Care Provided by: self Provides Primary Care For: no one Caregiver if needed: child(emmanuel), adult Quality of Family relationships: involved, supportive Community Resources being provided currently: other (see comments) (receives [facility] services at home (1xweekly)) Behavioral Health [...] Insurance: N/A Prescription Coverage: Yes Preferred Pharmacy: [id number] - [place], [place] - [address] [facility] [address] [facility] [address] Status: Patient is a : No Primary Care Provider listed: Masood Pierson MD [phone] Patient/Caregiver Goals of Treatment: home when MR Potential Needs for Transition of Care: home health care Agency Referrals: Not Applicable I have met with the patient to: discuss discharge planning needs. provide the [facility], Office of Care Management letter from the Rn Radiology pertaining to rehab referrals. provide a letter describing our affiliations within the [facility] and educate about their right to choose where referrals are sent. provide a list of Home Health Agencies / Durable Medical Equipment vendors which serve their preferred geographic area. provided patient with [facility] Star Quality Rating handout. They have requested referrals to: [facility] [address] [place] [address] Note routed to a Country Sales Manager who will communicate referrals to facilities [...] results. PO hydralazine added for BP control. cath lab tech sites remain C/D/I, ecchymosis unchanged th roughout shift. See flowsheet for I+O's and safety rounding. Patient is able to make needs known and call capps within reach. PLAN MOVING FORWARD: Monitor Tele, control CP and BP, NPO at MD for cath, monitor salvage laborer sites, D/C Planning INDIVIDUALIZED FALL PREVENTION [...] AM EDT Office Visit Cardiology at [address] [place] [address] Izaiah Meyer MD [facility] [place] [place] [address] Scheduled Referrals Name Type Priority Associated Diagnoses [...] [facility] Lymph % 15.2 % [facility] Lymphocytes Abs 1.3 0.9 - 3.2 x10(3)/ L [facility] Monocyte % 16.9 % [facility] Monocyte Abs 1.4(H) 0.3 - 0.9 x10(3)/ L [facility] Eos % 3.7 % [facility] Eosinophils Abs 0.3 0.0 - 0.4 x10(3)/[facility] Basophil % 0.5 % [facility] [...] HEMATOLOGY ORDERABLE S [facility] [place] [address] * (ABNORMAL) Hemogram (11/03/2023 3:46 AM EDT) [...] LABORATORY Platelet 181 145 - 357 x10(3)/[facility] LAB[facility]ORY RDW Standard Deviation 54.7(H) 37.0 - 46.0 [facility] RDW coefficient of variation 14.6(H) 11.5 - 14.1 % [facility] Mean Platelet Volume 11.2 7.6 - 12.9 [facility] LABORATORY NRBC% auto 0.0 % [facility] NRBC Absolute 0.000 0.000 - 0.000 x10(3)/ L [facility] Blood 11/03/2023 3:46 AM EDT 11/03/2023 4:11 AM EDT Narrative Resulting Agency Comment Spec In Lab Qamar Gallardo MD HEMATOLOGY ORDERABLE S [facility] [place] [address] * Phosphorus (11/03/2023 3:46 AM EDT) Phosphorus 3.2 2.5 - 4.5 mg/dL [facility] Comment:result rechecked-KS Blood 11/03/2023 3:46 AM EDT 11/03/2023 4:11 AM EDT Narrative Resulting Agency Comment Spec In Lab Rosa Cornejo MD CHEMISTRY ORDERABLE S [facility] [place] [address] * Magnesium (11/03/2023 3:46 AM EDT) Magnesium 0.90 0.69 - 1.07 mmol/L [facility] Blood 11/03/2023 3:46 AM EDT 11/03/2023 4:11 AM EDT Narrative Resulting Agency Comment Spec In Lab Rosa Cornejo MD CHEMISTRY ORDERABLE S Performing Organization Address City/[facility]/ZIP Co de Phone Number [facility] [place] [address] * (ABNORMAL) Basic Metabolic Panel (non-fasting) (11/03/2023 3:46 AM EDT) Glucose 105 65 - 199 mg/dL NOR[facility] [...] CHEMISTRY ORDERABLE S [facility] [place] [id number] * EKG 12 Lead (11/02/2023 12:44 PM EDT) Ventricular rate 83 BPM MUSE SYSTEM Atrial Rate 83 BPM MUSE SYSTEM P-R Interval 216 ms MUSE SYSTEM QRS Duration 90 ms MUSE SYSTEM Q-T Interval 384 ms MUSE SYSTEM QTC Calculated (Bezet) 451 ms MUSE SYSTEM Calculated P Redbird 92 degrees MUSE SYSTEM Calculated R Redbird -51 degrees MUSE SYSTEM Calculated T Redbird -33 degrees MUSE SYSTEM INTERPRETATION Sinus rhythm [...] Tamez MD URINE ORDERABLES Performing Organization Address City/[facility]/[place] Co de Phone Number [facility] [place] [address] * (ABNORMAL) Urinalysis with reflex Culture (11/02/2023 [...] HOSPITAL LABORATORY Leukocytes, Urine Dipstick Small(A) Negative [facility]ORY Appearance, Urine Dipstick Cloudy(A) Clear [facility] Specific [place] Urine Automated >=1.030(A) 1.005 - 1.030 [facility] Color, Urine Dipstick Dark Yellow Yellow [facility] Reflex to Culture Yes [facility] Clean Catch Urine 11/02/2023 11:40 AM EDT 11/02/2023 12:04 PM EDT Narrative Resulting Agency Comment Spec In Lab Rosa Hugo MD URINE ORDERABLES Performing Organization Address City/State/[place] Co de Phone Number [facility] [place] [address] * Respiratory Panel PCR (11/02/2023 10:15 AM EDT) Respiratory Panel Source CATAPULT AND ARRESTING GEAR OFFICER Swab [facility] Respiratory Panel PCR Negative Negative [facility] Comment: Respiratory Panels are performed on the Mostro, using multiplexed PCR nucleic acid detection. ??Negative [...] performed using the Bio[employer] Respiratory Panel 2.1 (Anytime DD) as authorized by the FDA issued Emergency Use Authorization (EUA). This panel also tests for multiple other viral and bacterial pathogens. This assay is intended for In-vitro Diagnostic (IVD) use with nasopharyngeal swabs in viral transport media. The assay is performed based on the instructions for use and additional guidance provided by the FDA. Testing is performed in laboratories within the [facility], each of which is certified under the [...] fact sheets at the following FDA website: https://www.fda.gov/medical-devices/ejveeuauvee-hryeplm-1426-dmhmc-83-htclwtetj- use-a wzpeufasfijht-phahhyn-tfmjdgh/uwygv-utnpnxrswsy-ouni Human Metapneumovirus Not Detected Not Detected NOR[facility] [...] GEN ERAL ORDERABLES [facility] [place] [address] * XR Chest One View (11/02/2023 2:51 AM EDT) WORKSTATION ID [id number] RAD Anatomical Region Laterality Modality Chest N/A [...] have questions please contact the health rn complex care that requested your imaging first. ? [...] who have questions please contactthe health rn complex care that requested your imaging first. Rosa Hugo MD IMG DX ORDERABLES * (ABNORMAL) Differential, Automated (11/02/2023 12:35 AM EDT) Neutrophil % 76.5 % [facility] Neutrophil Absolute 7.69(H) 1.70 - 6.10 x10(3)/mc L [facility] Lymph % 8.3 % [facility] Lymphocytes Abs 0.8(L) 0.9 - 3.2 x10(3)/mc L [facility] Monocyte % 12.9 % [facility] Monocyte Abs 1.3(H) 0.3 - 0.9 x10(3)/mc L [facility] Eos % 1.4 % [facility] Eosinophils Abs 0.1 0.0 - 0.4 x10(3)/mc L [facility] Basophil % 0.4 % [facility] Baso Absolute [...] HEMATOLOGY ORDERABLE S [facility] [place] [address] * (ABNORMAL) Hemogram (11/02/2023 12:35 AM EDT) White Blood Cell 10.0(H) 4.0 - 9.5 x10(3)/mc L [facility] [...] Mean Platelet Volume 11.4 7.6 - 12.9 [facility] LABORATORY NRBC% auto 0.0 % [facility] NRBC Absolute 0.000 0.000 - 0.000 x10(3)/ L [facility] Blood 11/02/2023 12:3 5 AM EDT 11/02/2023 12:43 AM EDT Narrative Resulting Agency Comment Spec In Lab Qamar Gallardo MD HEMATOLOGY ORDERABLE S [facility] [place] [address] * (ABNORMAL) Phosphorus (11/02/2023 12:35 AM EDT) Phosphorus 1.6(L) 2.5 - 4.5 mg/dL [facility] Blood 11/02/2023 12:3 5 AM EDT 11/02/2023 12:43 AM EDT Narrative Resulting Agency Comment Spec In Lab Rosa Cornejo MD CHEMISTRY ORDERABLE S [facility] [place] [address] * Magnesium (11/02/2023 12:35 AM EDT) Pathologist [facility] Magnesium 0.87 0.69 - 1.07 mmol/L [facility] Blood 11/02/2023 12:3 5 AM EDT 11/02/2023 12:43 AM EDT Narrative Resulting Agency Comment Spec In Lab Rosa Cornejo MD CHEMISTRY ORDERABLE S Performing Organization Address City/[facility]/ZIP Co de Phone Number [facility] [place] [address] * Basic Metabolic Panel (non-fasting) (11/02/2023 12:35 [...] CHEMISTRY ORDERABLE S [facility] [place] [address] * Blood culture (11/02/2023 12:35 AM EDT) Blood Culture No growth at 5 days. [facility] Blood 11/02/2023 12:3 5 AM EDT 11/02/2023 1:55 AM EDT Comment:#2 site ukn Narrative Resulting Agency Comment Spec In Lab Rosa Hugo MD MICROBIOLOGY - BLO OD ORDERABLES [facility] [place] [address] * Blood culture (11/02/2023 12:15 AM EDT) Blood Culture No growth at 5 days. [facility] Blood 11/02/2023 12:1 5 AM EDT 11/02/2023 1:54 AM EDT Comment:#1site unk Narrative Resulting Agency Comment Spec In Lab Rosa Hugo MD MICROBIOLOGY - BLO OD ORDERABLES Performing Organization Address City/[facility]/ZIP Co de Phone Number [facility] [place] [address] * EKG 12 Lead (11/01/2023 10:10 PM EDT) Ventricular rate 139 BPM MUSE SYSTEM Atrial Rate 139 BPM MUSE SYSTEM P-R Interval 168 ms MUSE SYSTEM QRS Duration 84 ms MUSE SYSTEM Q-T Interval 286 ms MUSE SYSTEM QTC Calculated (Bezet) 435 ms MUSE SYSTEM Calculated R Redbird -59 degrees MUSE SYSTEM Calculated T Redbird -27 degrees MUSE SYSTEM INTERPRETATION Mid-RP tachycardia, [...] interpretation Confirmed by fellow MD Andrés, Enriqueta ([id number]) on 11/04/2023 7:57:50 AM Confirmed by MD Gerardo, Shameka ([id number]) on 11/04/2023 4:32:03 PM MUSE SYSTEM 11/01/2023 10:1 0 PM EDT 11/04/2023 4:32 PM EDT Rosa Cornejo MD ECG ORDERABLES Performing Organization Address City/[facility]/ZIP Co de Phone Number MUSE SYSTEM * (ABNORMAL) Hemogram (11/01/2023 10:06 PM EDT) White Blood Cell 10.4(H) 4.0 - 9.5 x10(3)/ L [facility] Red Blood Cell 4.11 4.00 - 5.21 x10(6)/ L [facility] Hemoglobin 14.0 [...] LABORATORY Platelet 197 145 - 357 x10(3)/[facility] LABORATORY RDW Standard Deviation 54.0(H) 37.0 - 46.0 fL [facility] RDW coefficient of variation 14.6(H) 11.5 - 14.1 % [facility] Mean Platelet Volume 11.2 7.6 - 12.9 fL [facility] NRBC% auto 0.0 % [facility] NRBC Absolute 0.000 0.000 - 0.000 x10(3)/[facility] Blood 11/01/2023 10:0 6 PM EDT 11/01/2023 10:22 PM EDT Narrative Resulting Agency Comment Spec In Lab Rosa Hugo MD HEMATOLOGY ORDERAB LES [facility] [place] [address] * POCT Glucose (11/01/2023 5:59 PM EDT) Glucose, POC 104 65 - 199 mg/dL [facility] Comment: Supplemental ranges: <140 mg/dL before meals <180 mg/dL all other times of the day Blood 11/01/2023 5:59 PM EDT 11/01/2023 5:59 PM EDT Rosa Hugo MD POINT OF CARE TEST ORDERABLES [facility] [place] [address] * POCT Glucose (11/01/2023 5:35 PM EDT) Glucose, POC 85 65 - 199 mg/dL [facility] Comment: Supplemental ranges: <140 mg/dL before meals <180 mg/dL all other times of the day Blood 11/01/2023 5:35 PM EDT 11/01/2023 5:35 PM EDT Rosa Hugo MD POINT OF CARE TEST ORDERABLES Performing Organization Address City/[facility]/[place] Co de Phone Number [facility] [place] [address] * EKG 12 Lead (11/01/2023 3:22 PM EDT) Ventricular rate 59 BPM MUSE SYSTEM Atrial Rate 59 BPM MUSE SYSTEM P-R Interval 220 ms MUSE SYSTEM QRS Duration 94 ms MUSE SYSTEM Q-T Interval 428 ms MUSE SYSTEM QTC Calculated (Bezet) 423 ms MUSE SYSTEM Calculated P Redbird 76 degrees MUSE SYSTEM Calculated R Redbird -50 degrees MUSE SYSTEM Calculated T Redbird -59 degrees MUSE SYSTEM INTERPRETATION Sinus bradycardia [...] 11/02/2023 4:57 PM EDT ?[facility] ? Cardiac Catheterization/Intervention Report ? Patient Name: Joleen, Adin Catherine. ? Procedure Date: 11/01/2023 ? A #: [id number] ? Primary Physician: Rosa Dewey I ? Case #: [id number] ? File Name: [id number] ? Catheterization Order Number: [id number] ? [facility] ?[facility] ? Final Report [place], [place] ? Patient Name: ? Adin Townsendjosue ?ID#: ?[id number] ? : ?1940 ? Procedure Date: ? [...] procedure was Urgent. The indication for ?the salvage laborer visit is ACS greater than 24 [...] ??A premounted ? 3.50 x 15 mm Savannah Washington (RADHA) was deployed with a maximum ? [...] ? A premounted 3.50 x 15 mm Savannah Washington (RADHA) was deployed ? with a maximum [...] dose administered prior to arrival in the salvage laborer. ?Recommended anti-platelet/anti-thrombotic regimen: ?Continue aspirin 81 [...] I, MD - 12/12/[address] [facility] Cardiac Catheterization/Intervention Report Patient Name: Adin Santos Procedure Date: 11/01/2023 A #: [id number] Primary Physician: Rosa Dewey I Case #: [id number] File Name: [id number] Catheterization Order Number: [id number] [facility] FinalReport [place], [place] Patient Name: Adin Santos ID#:[id number] :1940 Procedure Date: November 01, 2023 Case [...] diagnostic procedure was Urgent. The indicationfor the salvage laborer visit is ACS greater than 24 [...] 14 atmospheres. Apremounted 3.50 x 15 mm Savannah Washington (RADHA) was deployed with amaximum inflation pressure [...] The lesion was predilated with a 3.00mm [id number] MM balloon with a maximum inflation pressure of 14atmospheres. A premounted 3.50 x 15 mm Andrea Washington (RADHA) wasdeployed with a maximum inflation pressure [...] dose administered prior to arrival in the salvage laborer. Recommended anti-platelet/anti-thrombotic regimen: Continue aspirin 81 [...] * POCT Glucose (11/01/2023 7:06 AM EDT) [facility] Glucose, POC 93 65 - 199 mg/dL [facility] Comment: Supplemental ranges: <140 mg/dL before meals <180 mg/dL all other times of the day Blood 11/01/2023 7:06 AM EDT 11/01/2023 7:06 AM EDT Jean Laboy MD POINT OF CARE TEST O RDERABLES [facility] [place] [address] * (ABNORMAL) Differential, Automated (11/01/2023 3:09 AM EDT) [facility] Neutrophil % 63.9 % [facility] Neutrophil Absolute 5.54 1.70 - 6.10 x10(3)/mc L [facility] Lymph % 20.0 % [facility] Lymphocytes Abs 1.7 0.9 - 3.2 x10(3)/mc L [facility] Monocyte % 11.9 % [facility] Monocyte Abs 1.0(H) 0.3 - 0.9 x10(3)/mc L [facility] Eos % 3.2 % [facility] Eosinophils Abs 0.3 0.0 - 0.4 x10(3)/mc L [facility] Basophil % 0.5 % [facility] [...] x10(3)/ L [facility] Blood 11/01/2023 3:09 AM EDT 11/01/2023 3:29 AM EDT Narrative Resulting Agency Comment Spec In Lab Qamar Gallardo MD HEMATOLOGY ORDERABLE S Performing Organization Address City/State/[place] Co de Phone Number [facility] [place] [address] * (ABNORMAL) Hemogram (11/01/2023 3:09 AM EDT) White Blood Cell 8.7 4.0 - 9.5 x10(3)/ L [facility] Red Blood Cell 3.72(L) 4.00 - 5.21 x10(6)/mc L [facility] Hemoglobin 12.5 11.7 - 15.5 [...] Platelet 184 145 - 357 x10(3)/ L [facility] RDW Standard Deviation 53.5(H) 37.0 - 46.0 fL [facility] RDW coefficient of variation 14.6(H) 11.5 - 14.1 % [facility] Mean Platelet Volume 11.3 7.6 - 12.9 fL [facility] NRBC% auto 0.0 % [facility] NRBC Absolute 0.000 0.000 - 0.000 x10(3)/mc L [facility] Blood 11/01/2023 3:09 AM EDT 11/01/2023 3:29 AM EDT Narrative Resulting Agency Comment Spec In Lab Qamar Gallardo MD HEMATOLOGY ORDERABLE S Performing Organization Address City/[facility]/ZIP Co de Phone Number [facility] [place] [address] * Phosphorus (11/01/2023 3:09 AM EDT) Phosphorus 2.5 2.5 - 4.5 mg/dL [facility] Blood 11/01/2023 3:09 AM EDT 11/01/2023 3:29 AM EDT Narrative Resulting Agency Comment Spec In Lab Rosa Cornejo MD CHEMISTRY ORDERABLE S Performing Organization Address City/[facility]/ZIP Co de Phone Number [facility] [place] [address] * Magnesium (11/01/2023 3:09 AM EDT) Magnesium 0.82 0.69 - 1.07 mmol/L [facility] Blood 11/01/2023 3:09 AM EDT 11/01/2023 3:29 AM EDT Narrative Resulting Agency Comment Spec In Lab Rosa Cornejo MD CHEMISTRY ORDERABLE S Performing Organization Address City/[facility]/ZIP Co de Phone Number [facility] [place] [address] * (ABNORMAL) Basic Metabolic Panel (non-fasting) (11/01/2023 [...] CHEMISTRY ORDERABLE S [facility] [place] [address] * (ABNORMAL) Troponin (10/31/2023 2:46 PM EDT) [...] found in the [facility] Laboratory Test Catalog Troponin - [facility] Laboratory Test Catalog Reference: Fourth Patterson Definition of Myocardial Infarction. Journal of the [place] [employer] 2018;72:6442-6093 Blood 10/31/2023 2:46 PM EDT 10/31/2023 2:55 PM EDT Narrative Resulting Agency Comment Spec In Lab Jean Laboy MD CHEMISTRY ORDERABLES [facility] [place] [address] * EKG 12 Lead (10/31/2023 1:07 PM EDT) Ventricular rate 54 BPM MUSE SYSTEM Atrial Rate 54 BPM MUSE SYSTEM P-R Interval 218 ms MUSE SYSTEM QRS Duration 92 ms MUSE SYSTEM Q-T Interval 540 ms MUSE SYSTEM QTC Calculated (Bezet) 512 ms MUSE SYSTEM Calculated P Redbird 85 degrees MUSE SYSTEM Calculated R Redbird -44 degrees MUSE SYSTEM Calculated T Redbird -69 degrees MUSE SYSTEM INTERPRETATION Sinus bradycardia [...] EDT) Troponin-T, High Sensitivity 580(H) <=14 ng/L [facility] [...] found in the [facility] Laboratory Test Catalog Troponin - [facility] Laboratory Test Catalog Reference: Fourth Patterson Definition of Myocardial Infarction. Journal of the [place] [employer] 2018;72:7041-7574 Blood 10/31/2023 11:3 7 AM EDT 10/31/2023 11:50 AM EDT Narrative Resulting Agency Comment Spec In Lab Rosa Cornejo MD CHEMISTRY ORDERABLE S Performing Organization Address [facility]/State/ZIP Co de Phone Number [facility] [place] [address] * ECHO COMPLETE (10/31/2023 8:52 AM EDT) Anatomical Region Laterality Modality Cardiac Other 10/31/2023 7:57 AM EDT Narrative 10/31/2023 9:45 AM EDT [address] [place] [address] ? Echocardiogram Report Name: ADIN SANTOS ? Study Date: 10/31/2023 07:57 AMBP: 106/76 mmHg ? Patient Location: [id number] A : 1940 ? Height: 163 cm ? Account: [id number] Age: 83 yrs ? Weight: 76 kg [...] is no prior echocardiogram for comparison. Procedure Complete-66136. Satisfactory quality. There is sinus bradycardia. Left [...] Note Edgard Wang MD - 10/31/2023 [address] [place] [address] Echocardiogram Report Name: ADIN SANTOS Study Date: 407:57 AMBP: 106/76 mmHg Patient Location: [id number] : 1940 Height: 163 cm Account: [id number] Age: 83 yrs Weight: 76 kg Gender: [...] is no prior echocardiogram for comparison. Procedure Complete-91234. Satisfactory quality. There is sinus bradycardia. Left [...] EDT) Troponin-T, High Sensitivity 571(H) <=14 ng/L [facility] [...] found in the [facility] Laboratory Test Catalog Troponin - [facility] Laboratory Test Catalog Reference: Fourth Patterson Definition of Myocardial Infarction. Journal of the [place] [employer] 2018;72:7800-1721 Blood 10/31/2023 8:51 AM EDT 10/31/2023 9:12 AM EDT Narrative Resulting Agency Comment Spec In Lab Rosa Cornejo MD CHEMISTRY ORDERABLE S [facility] [place] [address] * CARDIAC CATHETERIZATION (10/31/2023 8:10 AM EDT) Anatomical Region Laterality Modality Other Narrative 11/07/2023 9:42 AM EDT ?[facility] ? Cardiac Catheterization/Intervention Report ? Patient Name: Adin Santos. ? Procedure Date: 10/30/2023 ? A #: [id number] ? Primary Physician: Rosa Dewey I ? Case #: [id number] ? File Name: [id number] ? Catheterization Order Number: [id number] ? [facility] ?[facility] ? Final Report [place], [place] ? Patient Name: ? Adin M. Goguen ?ID#: ?[id number] ? : ?1940 ? Procedure Date: ? [...] procedure was Emergent. The indication for ?the salvage laborer visit is ACS less than or [...] ? A premounted 4.00 x 38 mm Savannah Washington (RADHA) was deployed ? with a maximum [...] dose administered prior to arrival in the salvage laborer. ?Recommended anti-platelet/anti-thrombotic regimen: ?Continue aspirin 81 [...] Dewey MD - 12/05/[address] [facility] Cardiac Catheterization/Intervention Report Patient Name: Adni Santos Procedure Date: 10/30/2023 A #: [id number] Primary Physician: Rosa Dewey I Case #: [id number] File Name: [id number] Catheterization Order Number: [id number] [facility] FinalReport [place], [place] Patient Name: Adin CatherineYasir Edvinree ID#:[id number] :1940 Procedure Date: October 30, 2023 Case #: [id number] Room: 5 Case Physician: Rosa Dewey M.D. [...] was designated as ASA Class III. The [facility] clinical frailtyscale is 5: Mildly Frail. Diagnostic Tests: Electrocardiography: EKG was assessed by ECG. EKG was Abnormal. EKG showed STDeviation >= 0.5 mm, other abnormality and dynamic EKG changes. Medications Prior to Procedure: Aspirin, Angiotensin II Receptor Kristy, Beta Kristy andStatin. Indications for Diagnostic Cath: The priority of the diagnostic procedure was Emergent. Theindication for the salvage laborer visit is ACS less than or [...] The priority for the procedure was Emergent.The [facility] indication for the procedure was STEMI-Immediate [...] 16atmospheres. A premounted 4.00 x 38 mm Savannah Washington (RADHA) wasdeployed with a maximum inflation pressure [...] dose administered prior to arrival in the salvage laborer. Recommended anti-platelet/anti-thrombotic regimen: Continue aspirin 81 [...] 4:21 AM EDT) [facility] Troponin-T, High Sensitivity 457(H) <=14 ng/L [facility] [...] found in the [facility] Laboratory Test Catalog Troponin - [facility] Laboratory Test Catalog Reference: Fourth Patterson Definition of Myocardial Infarction. Journal of the [place] [employer] 2018;72:8377-9724 Blood 10/31/2023 4:21 AM EDT 10/31/2023 4:30 AM EDT Narrative Resulting Agency Comment Spec In Lab Rosa Cornejo MD CHEMISTRY ORDERABLE S [facility] [place] [address] * (ABNORMAL) Differential, Automated (10/31/2023 3:05 AM EDT) Neutrophil % 71.7 % [facility] Neutrophil Absolute 8.21(H) 1.70 - 6.10 x10(3)/mc L [facility] Lymph % 16.9 % [facility] Lymphocytes Abs 1.9 0.9 - 3.2 x10(3)/mc L [facility] Monocyte % 9.4 % [facility] Monocyte Abs 1.1(H) 0.3 - 0.9 x10(3)/mc L [facility] Eos % 1.3 % [facility] Eosinophils Abs 0.2 0.0 - 0.4 x10(3)/mc L [facility] Basophil % 0.4 % [facility] Baso Absolute [...] Absolute 0.04 0.00 - 0.04 x10(3)/mc L [facility] Blood 10/31/2023 3:05 AM EDT 10/31/2023 3:13 AM EDT Narrative Resulting Agency Comment Spec In Lab Qamar Gallardo MD HEMATOLOGY ORDERABLE S [facility] [place] [address] * (ABNORMAL) Hemogram (10/31/2023 3:05 AM EDT) White Blood Cell 11.5(H) 4.0 - 9.5 x10(3)/ L [facility] Red Blood Cell 3.75(L) 4.00 - 5.21 x10(6)/[facility] Hemoglobin 12.6 11.7 - 15.5 [...] Platelet 206 145 - 357 x10(3)/ L [facility] RDW Standard Deviation 53.4(H) 37.0 - 46.0 [facility] RDW coefficient of variation 14.6(H) 11.5 - 14.1 % [facility] Mean Platelet Volume 11.1 7.6 - 12.9 [facility] NRBC% auto 0.0 % [facility] NRBC Absolute 0.000 0.000 - 0.000 x10(3)/ L [facility] Blood 10/31/2023 3:05 AM EDT 10/31/2023 3:13 AM EDT Narrative Resulting Agency Comment Spec In Lab Qamar Gallardo MD HEMATOLOGY ORDERABLE S Performing Organization Address [facility]/[place] Co de Phone Number [facility] [place] [address] * (ABNORMAL) APTT (10/31/2023 3:05 AM EDT) [...] MD HEMATOLOGY ORDERABL ES Performing Organization Address [facility] de Phone Number [facility] [place] [address] * (ABNORMAL) Prothrombin Time (10/31/2023 3:05 AM [...] ORDERABL ES Performing Organization Address [facility]/[place] Co de Phone [place] [address] * (ABNORMAL) Differential, Automated (10/31/2023 1:37 AM EDT) Pathologist [facility] Neutrophil % 71.1 % [facility] Neutrophil Absolute 7.53(H) 1.70 - 6.10 x10(3)/ L [facility] Lymph % 18.0 % [facility] Lymphocytes Abs 1.9 0.9 - 3.2 x10(3)/ L [facility] Monocyte % 8.7 % [facility] Monocyte Abs 0.9 0.3 - 0.9 x10(3)/[facility] Eos % 1.6 % [facility] Eosinophils Abs 0.2 0.0 - 0.4 x10(3)/[facility] Basophil % 0.4 % [facility] Baso Absolute 0.0 0.0 - 0.1 x10(3)/[facility] Immature Gran % 0.20 % NORTH [...] HEMATOLOGY ORDERABLE S [facility] [place] [address] * (ABNORMAL) Hemogram (10/31/2023 1:37 AM EDT) [...] Platelet 204 145 - 357 x10(3)/ L [facility] RDW Standard Deviation 54.3(H) 37.0 - 46.0 fL [facility] RDW coefficient of variation 14.6(H) 11.5 - 14.1 % [facility] Mean Platelet Volume 11.1 7.6 - 12.9 fL [facility] NRBC% auto 0.0 % [facility] NRBC Absolute 0.000 0.000 - 0.000 x10(3)/ L [facility] Blood 10/31/2023 1:37 AM EDT 10/31/2023 1:46 AM EDT Narrative Resulting Agency Comment Spec In Lab Qamar Gallardo MD HEMATOLOGY ORDERABLE S [facility] [place] [address] * Phosphorus (10/31/2023 1:37 AM EDT) Phosphorus 3.2 2.5 - 4.5 mg/dL [facility] Blood 10/31/2023 1:37 AM EDT 10/31/2023 1:46 AM EDT Narrative Resulting Agency Comment Spec In Lab Rosa Cornejo MD CHEMISTRY ORDERABLE S [facility] [place] [address] * Magnesium (10/31/2023 1:37 AM EDT) Pathologist [facility] Magnesium 0.83 0.69 - 1.07 mmol/L [facility] Blood 10/31/2023 1:37 AM EDT 10/31/2023 1:46 AM EDT Narrative Resulting Agency Comment Spec In Lab Rosa Cornejo MD CHEMISTRY ORDERABLE S Performing Organization Address [facility]/[place] Co de Phone Number [facility] [place] [address] * Basic Metabolic Panel (non-fasting) (10/31/2023 1:37 AM EDT) Pathologist [facility] Glucose 114 65 - 199 mg/dL NORTH [...] CHEMISTRY ORDERABLE S [facility] [place] [address] * (ABNORMAL) Troponin (10/31/2023 1:37 AM EDT) [...] found in the [facility] Laboratory Test Catalog Troponin - [facility] Laboratory Test Catalog Reference: Fourth Patterson Definition of Myocardial Infarction. Journal of the [place] [employer] 2018;72:7902-0950 Blood 10/31/2023 1:37 AM EDT 10/31/2023 1:46 AM EDT Narrative Resulting Agency Comment Spec In Lab oRsa Cornejo MD CHEMISTRY ORDERABLE S Performing Organization Address [facility]/ZIP Co de Phone Number [facility] [place] [address] * EKG 12 Lead (10/31/2023 1:20 AM EDT) Ventricular rate 52 BPM MUSE SYSTEM Atrial Rate 52 BPM MUSE SYSTEM P-R Interval 224 ms MUSE SYSTEM QRS Duration 108 ms MUSE SYSTEM Q-T Interval 544 ms MUSE SYSTEM QTC Calculated (Bezet) 505 ms MUSE SYSTEM Calculated P Redbird 90 degrees MUSE SYSTEM Calculated R Redbird -57 degrees MUSE SYSTEM Calculated T Redbird -63 degrees MUSE SYSTEM INTERPRETATION Sinus bradycardia [...] Cornejo MD ECG ORDERABLES Performing Organization Address City/[facility]/ZIP Co de Phone Number MUSE SYSTEM * EKG 12 Lead (10/30/2023 10:40 PM EDT) Ventricular rate 55 BPM MUSE SYSTEM Atrial Rate 55 BPM MUSE SYSTEM P-R Interval 232 ms MUSE SYSTEM QRS Duration 102 ms MUSE SYSTEM Q-T Interval 520 ms MUSE SYSTEM QTC Calculated (Bezet) 497 ms MUSE SYSTEM Calculated P Redbird 75 degrees MUSE SYSTEM Calculated R Redbird -53 degrees MUSE SYSTEM Calculated T Redbird -57 degrees MUSE SYSTEM INTERPRETATION Sinus bradycardia with 1st degree A-V block Left anterior fascicular block Moderate voltage criteria for LVH, may be normal variant ( R in aVL , Doyline product ) T wave abnormality, consider inferior [...] Chest One View (10/30/2023 10:10 PM EDT) datatracker WORKSTATION ID [id number] DH RAD Anatomical Region Laterality Modality Chest [...] and low lung volumes. Findings similar to molder operator radiograph from CT 10/30/2023. Thank you for letting us participate in the care of this patient. ??If you are a health care provider and have any questions regarding this report, please contact the number below. ??For patients who have questions please contact the health rn complex care that requested your imaging first. ? [...] and low lung volumes. Findings similar to molder operator radiograph from CT 10/30/2023. Thank you for letting us participate in the care of this patient. If youare a health care provider and have any questions regarding this report,please contact the number below. For patients who have questions please contactthe health rn complex care that requested your imaging first. Rosa Cornejo MD IMG DX ORDERABLES * Green Tube HOLD (10/30/2023 10:05 PM EDT) Pathologist [facility] Green Hold Sample in lab. [facility] Blood Venous Draw / Unknown 10/30/2023 10:05 PM EDT 10/30/2023 10:13 PM EDT Qamar Gallardo MD CHEMISTRY ORDERABLES [facility] [place] [address] * (ABNORMAL) Differential, Automated (10/30/2023 10:05 PM EDT) Pathologist [facility] Neutrophil % 76.6 % [facility] Neutrophil Absolute 6.94(H) 1.70 - 6.10 x10(3)/mc L [facility] Lymph % 15.4 % [facility] Lymphocytes Abs 1.4 0.9 - 3.2 x10(3)/mc L [facility] Monocyte % 6.1 % [facility] Monocyte Abs 0.6 0.3 - 0.9 x10(3)/mc L [facility] Eos % 1.1 % [facility] Eosinophils Abs 0.1 0.0 - 0.4 x10(3)/mc L [facility] Basophil % 0.6 % [facility] Baso Absolute [...] HEMATOLOGY ORDERABLE S [facility] [place] [address] * (ABNORMAL) Hemogram (10/30/2023 10:05 PM EDT) White Blood Cell 9.0 4.0 - 9.5 x10(3)/mc L [facility] NRBC% auto 0.0 % [facility] NRBC Absolute 0.000 0.000 - 0.000 x10(3)/mc L [facility] Blood 10/30/2023 10:0 5 PM EDT 10/30/2023 10:12 PM EDT Narrative Resulting Agency Comment Spec In Lab Qamar Gallardo MD HEMATOLOGY ORDERABLE S Performing Organization Address [facility]/[place] Co de Phone Number [facility] [place] [address] * Hemoglobin A1c (10/30/2023 10:05 PM EDT) [...] [id number] Estimated Average Glucose See note mg/dL [facility] Comment: Estimated Average Glucose not appropriate for patients over 70 years of age. Blood 10/30/2023 10:0 5 PM EDT 10/30/2023 10:12 PM EDT Narrative Resulting Agency Comment Spec In Lab Rosa Cornejo MD CHEMISTRY ORDERABLE S Performing Organization Address [facility]/[place] Co de Phone Number [facility] [place] [address] * Lipid Panel (Reflex Direct LDL) (10/30/2023 10:05 PM EDT) Cholesterol, Total 218 mg/dL [facility] Comment: Desirable: ? <200 mg/dL Borderline High: 200-239 mg/dL Higher: ?>zd=021 mg/dL Triglyceride 46 mg/dL [facility] Comment: Normal: ?<150 mg/dL Borderline High: 150-199 mg/dL High: ?200-499 mg/dL Very High: ? >ax=186 mg/dL HDL Cholesterol 64 mg/dL [facility] Comment: Females: High Risk: <50 mg/dL Males: High Risk: <40 mg/dL LDL Cholesterol 145 mg/dL [facility] Comment: Desirable: ? <100 mg/dL Above Desirable: 100-129 mg/dL Borderline High: 130-159 mg/dL High: ?160-189 mg/dL Very High: ? >cz=060 mg/dL Lipid Interpretation See Note [facility] [...] ACC/AHA Guidelines (most recently Feliciano et al. [facility] 03/23/22): For individuals with atherosclerotic cardiovascular disease (ASCVD)or LDL >cj=180 mg/dL, use a high-intensity statin (40-80 mg [...] ORDERABLE S Performing Organization Address [facility]/[place] Co de Phone Number [facility] [place] [address] * TSH Monitor (10/30/2023 10:05 PM EDT) Thyroid Stimulating Hormone 3.35 0.27 - 4.20 mcIU/mL [facility] Comment: Reference Interval (mcIU/mL): Females: ??First Trimester: 0.23-3.88 ??Second Trimester: 0.22-3.90 ??Third Trimester: 0.44-4.66 Blood 10/30/2023 10:0 5 PM EDT 10/30/2023 10:12 PM EDT Narrative Resulting Agency Comment Spec In Lab Rosa Cornejo MD CHEMISTRY ORDERABLE S Performing Organization Address [facility] Co de Phone Number [facility] [place] [address] * pro-Brain Natriuretic Peptide (10/30/2023 10:05 PM EDT) NT-proBNP 375 <=449 pg/mL [facility] Blood 10/30/2023 10:0 5 PM EDT 10/30/2023 10:12 PM EDT Narrative Resulting Agency Comment Spec In Lab Rosa Cornejo MD CHEMISTRY ORDERABLE S [facility] [place] [address] * (ABNORMAL) Comprehensive metabolic panel (non-fasting) (10/30/2023 10:05 PM EDT) Glucose 121 65 - 199 mg/dL [facility] [...] MD CHEMISTRY ORDERABLE S Performing Organization Address City/[facility]/ZIP Co de Phone Number [facility] [place] [address] * Phosphorus (10/30/2023 10:05 PM EDT) Phosphorus 3.3 2.5 - 4.5 mg/dL [facility] Blood 10/30/2023 10:0 5 PM EDT 10/30/2023 10:12 PM EDT Narrative Resulting Agency Comment Spec In Lab Rosa Cornejo MD CHEMISTRY ORDERABLE S Performing Organization Address City/[facility]/ZIP Co de Phone Number [facility] [place] [address] * Magnesium (10/30/2023 10:05 PM EDT) Magnesium 0.86 0.69 - 1.07 mmol/L [facility] Blood 10/30/2023 10:0 5 PM EDT 10/30/2023 10:12 PM EDT Narrative Resulting Agency Comment Spec In Lab Rosa Cornejo MD CHEMISTRY ORDERABLE S Performing Organization Address City/[facility]/ZIP Co de Phone Number [facility] [place] [address] * (ABNORMAL) Troponin (10/30/2023 10:05 PM EDT) [facility] Troponin-T, High Sensitivity 214(H) <=14 ng/L [facility] [...] found in the [facility] Laboratory Test Catalog Troponin - [facility] Laboratory Test Catalog Reference: Fourth Patterson Definition of Myocardial Infarction. Journal of the [place] [employer] 2018;72:2227-3978 Blood 10/30/2023 10:0 5 PM EDT 10/30/2023 10:12 PM EDT Narrative Resulting Agency Comment Spec In Lab Rosa Cornejo MD CHEMISTRY ORDERABLE S [facility] [place] [address] * EKG 12 Lead (10/30/2023 8:21 PM EDT) [facility] Ventricular rate 49 BPM MUSE SYSTEM Atrial Rate 49 BPM MUSE SYSTEM P-R Interval 230 ms MUSE SYSTEM QRS Duration 96 ms MUSE SYSTEM Q-T Interval 526 ms MUSE SYSTEM QTC Calculated (Bezet) 475 ms MUSE SYSTEM Calculated P Redbird 98 degrees MUSE SYSTEM Calculated R Redbird -48 degrees MUSE SYSTEM Calculated T Redbird -51 degrees MUSE SYSTEM INTERPRETATION Sinus bradycardia with 1st degree A-V block Incomplete right bundle branch block Left anterior fascicular block Moderate voltage criteria for LVH, may be normal variant ( R in aVL , Doyline product ) T wave abnormality, consider inferior [...] last 24 to 72 hours., Routine 1333 ([facility] Hold - Provider: Admin Adt - Reason: Transfer to a Procedural area)1548 ([facility] Unhold - Provider: Admin Adt) sodium chloride 0.9 % (flush) (BD PosiFlush Normal Saline 0.9) flush 5-20 mL 5-20 mL, Intravenous, EVERY 1 MIN PRN, Starting on 10/30/23 at 2208, Until Amna 11/03/23 at 1913, flush, Flush pertains to all indwelling lines. Flush per protocol found in the job aid using the link provided on this medication record., Routine 1333 ([facility] Hold - Provider: Admin Adt - Reason: Transfer to a Procedural area)1548 ([facility] Unhold - Provider: Admin Adt) documented in this encounter Additional Health Concerns Infection Onset Date Last Indicated Resolved Time Rule Out Respiratory 11/02/2023 11/02/2023 024 12:22 PM EDT Rule Out COVID-19 11/02/2023 11/02/2023 11/02/2023 12:22 PM EDT documented as of this encounter Care Teams Food Safety Manager Relationship Specialty Start Date End Date Rosie Mathews MD [address] [place] [address] PCP - General Family Medicine 11/25/17 11/23/23 documented as of this encounter
--- OUTSIDE RECORDS SUMMARY | 2024-03-05 10:21 | XMS_ITS | Encounter Summary ---
Author Organization [facility] Address [facility] [place] [address] Care Team Providers Care Carcass Washer Name Role Phone Rosie Mathews MD Primary Care Provider [phone] Encounter Details Date Type Department Care Team (Late st Contact Info) Description 11/18/2023 External Results Administration [facility] [place] [address] Social History Tobacco Use Types Packs/Day Years Used Date Smoking Tobacco: Former Smokeless Tobacco: Never Alcohol Use Standard Drinks/Week Comments Not Currently 0 (1 standard drink = 0.6 oz pur e alcohol) [facility] Utilities Answer Date Recorded In the [...] AM EDT Office Visit Cardiology at [address] [phone] Izaiah Meyer MD [facility] [address] documented as of this encounter Procedures Procedure Name Priority Date/Time Associated Diagnosis Comments ECG SCAN Routine 11/18/2023 4:50 PM EDT documented in this encounter Results * Scan Doc: ECG (11/18/2023 4:50 PM EDT) Historical Provider MEDIA MGR SCAN EX T ORDR/RSLT documented in this encounter Visit Diagnoses Not on filedocumented in this encounter Care Teams Carcass Washer Relationship Specialty Start Date End Date Rosie Mathews MD [address] [place] [address] PCP - General Family Medicine 11/25/17 11/23/23 documented as of this encounter
--- OUTSIDE RECORDS SUMMARY | 2024-03-05 10:21 | XMS_ITS | Clinical Summary ---
Author Organization [facility] Address [facility] [place] [address] Care Team Providers Care Skidder Loader Name Role Phone Masood Pierson MD Primary Care Provider [phone] Allergies Active Allergy Reactions Criticality Noted Date [...] Care Team Description 02/27/2024 Telephone Cardiology at [address] [address] Izaiah Meyer MD 02/24/2024 11:10 PM EDT Ancillary Procedure Radiology Library at [facility] [place] [address] Masood Pierson MD 02/24/2024 External Results Transfer Center [facility] [place] [address] 12/16/2023 Telephone Cardiology at [address] [address] Izaiah Meyer MD from Last 3 Months Social History Tobacco Use Types Packs/Day Years Used Date Smoking Tobacco: Former Smokeless Tobacco: Never Alcohol Use Standard Drinks/Week Comments Not Currently 0 (1 standard drink = 0.6 oz pur e alcohol) [facility] Utilities Answer Date Recorded In the past 12 months has th e electric, gas, oil, or water [employer] threatened to shut off services in your [...] AM EDT Office Visit Cardiology at [address] [place] [address] Izaiah Meyer MD [facility] [place] [address] Health Maintenance Due Date Last Done Comments Pneumoccocal Vaccine: 65+ (1 of 2 - PCV) 1945 Tdap adult 1958 Tetanus vaccine 1958 Zoster vaccine (1 of 2) 1989 Advance Directive 1994 Bone Density Scan 2004 Covid-19 Vaccine ( - season) 2024 Influenza (Flu) vaccine (1 [...] CT Chest (02/24/2024 11:05 PM EDT) Narrative [facility] - 02/24/2024 11:05 PM EDT This exam is auto-finalizing. It's purpose is for storage only. Masood Pierson MD IMG FILM LIBRARY ORD ERABLES Performing Organization Address City/State/[facility] Co de Phone Number [place], [place] from Last 3 Months Advance Directives * Attempt Cardiopulmonary Resuscitation - Inpatient (Latest Code Status on File) Date Activated Date Inactivated Comments 10/30/2023 9:58 PM 11/03/2023 7:13 PM Question Answer Comments Code Status decision made by: Patient Care Teams Skidder Loader Relationship Specialty Start Date End Date Masood Pierson MD [address] [place] [address] PCP - General Family Medicine 11/24/23
--- OUTSIDE RECORDS SUMMARY | 2024-03-05 10:21 | XMS_ITS | Encounter Summary ---
Author Organization [facility] Address [facility] [place] [address] Care Team Providers Care Bindery Machine Feeder Offbearer Name Role Phone Masood Pierson MD Primary Care Provider [phone] Reason for Visit * Reason Comments Establish Care Coronary Artery Disease Encounter Details Date Type Department Care Team (Latest Contact Info) Description 11/24/2023 10:40 AM EDT Office Visit Cardiology at [address] [place] [address] Izaiah Meyer MD [facility] [address] ASCVD (arteriosclerotic cardiovascular disease); Cardiomyopathy, ischemic; Ascending [...] y.o. female. HPI: 83 f [facility] cardiovascular [facility]. She has a [...] [facility]hab. [facility] very well controlled at home [...] AM EDT Office Visit Cardiology at [address] [place] [phone] Izaiah Meyer MD [facility] [place] [address] documented as of this encounter Visit Diagnoses Diagnosis ASCVD (arteriosclerotic cardiovascular disease) Unspecified cardiovascular disease Cardiomyopathy, ischemic Other specified forms of chronic ischemic heart disease Ascending aorta dilatation Thoracic aortic ectasia Hyperpiesia Unspecified essential hypertension documented in this encounter Care Teams Bindery Machine Feeder Offbearer Relationship Specialty Start Date End Date Masood Pierson MD [address] [place] [address] PCP - General Family Medicine 11/24/23 documented as of this encounter
--- OUTSIDE RECORDS SUMMARY | 2024-03-05 10:21 | XMS_ITS | Encounter Summary ---
Author Organization [facility] Address [facility] [place] [address] Care Team Providers Care Staple Processing Machine Operator Name Role Phone Rosie Mathews MD Primary Care Provider [phone] Encounter Details Date Type Department Care Team (Late st Contact Info) Description 11/18/2023 Telephone Cardiology at [address] [address] Cheryl Guzman MD [facility] [place] [address] Social History Tobacco Use Types Packs/Day Years Used Date Smoking Tobacco: Former Smokeless Tobacco: Never Alcohol Use Standard Drinks/Week Comments Not Currently 0 (1 standard drink = 0.6 oz pur e alcohol) [facility] Utilities Answer Date Recorded In the past 12 months has e electric, gas, oil, or water [employer] threatened to shut off services in your [...] Radu Giron MD Patient Location: ED, [facility] Past Medical History: HTN HLD NSTEMI ([facility] 11/02, status-post revasc) Presenting Symptoms per OSH: Lyla Goodrich is a 83 y.o. woman who presents to [facility] with an episode of chest pain. Recent admission to [facility] with NSTEMI status-post PCI to the prox-RCA [...] today's values. RCA was described as a SEISMIC OBSERVER. Recommend admission for observation to assess for [...] AM EDT Office Visit Cardiology at [address] [phone] Izaiah Meyer MD [facility] [place] [address] documented as of this encounter Visit Diagnoses Not on filedocumented in this encounter Care Teams Staple Processing Machine Operator Relationship Specialty Start Date End Date Rosie Mathews MD [address] [place] [address] PCP - General Family Medicine 11/25/17 11/23/23 documented as of this encounter
--- OUTSIDE RECORDS SUMMARY | 2024-03-05 10:21 | XMS_ITS | Encounter Summary ---
Author Organization [facility] Address [facility] [place] [address] Care Team Providers Care Help Desk Manager Name Role Phone Masood Pierson MD Primary Care Provider Encounter Details Date Type Department Care Team (Late st Contact Info) Description 12/16/2023 Telephone Cardiology at [address] [place] [address] Izaiah Meyer MD [facility] [place] [address] Social History Tobacco Use Types Packs/Day Years Used Date Smoking Tobacco: Former Smokeless Tobacco: Never Alcohol Use Standard Drinks/Week Comments Not Currently 0 (1 standard drink = 0.6 oz pur e alcohol) [facility] Utilities Answer Date Recorded In the past 12 months has [employer] electric, gas, oil, or water [employer] threatened to shut off services in your [...] Dias RN - 12/16/2023 11:25 AM EDT [place], [facility] Cardiac farmer cash grain, called to report that at today's [...] AM EDT Office Visit Cardiology at [address] [place] [address] Izaiah Meyer MD [facility] [place] [address] documented as of this encounter Visit Diagnoses Not on filedocumented in this encounter Care Teams Help Desk Manager Relationship Specialty Start Date End Date Masood Pierson MD [address] [place] [address] PCP - General Family Medicine 11/24/23 documented as of this encounter
--- OUTSIDE RECORDS SUMMARY | 2024-03-05 10:22 | XMS_ITS | Encounter Summary ---
Author Organization [facility] [place] [address] Care Team Providers Care Vehicle Delivery Worker Name Role Phone Rosie Mathews MD Primary Care Provider [phone] Reason for Visit * Auth/Cert (Routine) Specialty Diagnoses / Procedures Referred By Contac t Referred To Contact Diagnoses Unstable angina Procedures [facility] Referral ID Status Reason Start Date Expiration Date Visits Re quested Visits Authorized [id number] 1 1 Encounter Details Date Type Department Care Team (Latest Contact Info) Description 10/30/2023 5:00 PM EDT - 10/30/2023 5:10 PM EDT Hospital [place] [phone] Rosa Menjivar MD [facility] [place] [address] Discharge Disposition: Home Social History Tobacco Use Types Packs/Day Years Used Date Smoking Tobacco: Former Smokeless Tobacco: Never Alcohol Use Standard Drinks/Week Comments Not Currently 0 (1 standard drink = 0.6 oz pur e alcohol) [facility] Inpatient Questions Answer Date Recorded Does [...] AM EDT Office Visit Cardiology at [address] [place] [address] Izaiah Meyer MD [facility] [place] [address] documented as of this encounter Visit Diagnoses Not on filedocumented in this encounter Care Teams Vehicle Delivery Worker Relationship Specialty Start Date End Date Rosie Mathews MD [address] [place] [address] PCP - General Family Medicine 11/25/17 11/23/23 documented as of this encounter
--- OUTSIDE RECORDS SUMMARY | 2024-03-05 10:22 | XMS_ITS | Encounter Summary ---
Author Organization [facility] Address [facility] [place] [address] Care Team Providers Care Shirt Cleaner Name Role Phone Rosie Mathews MD Primary Care Provider [phone] Encounter Details Date Type Department Care Team (Late st Contact Info) Description 10/30/2023 5:00 PM EDT Ancillary Procedure Radiology Library at [facility] [place] [address] Izaiah Meyer MD [facility] [place] [address] Social History Tobacco Use Types Packs/Day Years Used Date Smoking Tobacco: Former Smokeless Tobacco: Never Alcohol Use Standard Drinks/Week Comments Not Currently 0 (1 standard drink = 0.6 oz pur e alcohol) [facility] Inpatient Questions Answer Date Recorded [...] AM EDT Office Visit Cardiology at [address] [place] [phone] Izaiah Meyer MD [facility] [place] [place] [address] documented as of this encounter Procedures Procedure Name Priority Date/Time Associated Diagnosis Comments FILM LIBRARY STORAGE ONLY CT CHEST Routine 10/30/2023 4:59 PM EDT documented in this encounter Results * Film Library- Storage Only CT Chest (10/30/2023 4:59 PM EDT) Narrative [facility] - 10/30/2023 4:59 PM EDT This exam is auto-finalizing. It's purpose is for storage only. Izaiah Meyer MD IMG FILM LIBRARY ORD ERABLES Performing Organization Address City/State/[facility] Co de Phone Number [place], [place] documented in this encounter Visit Diagnoses Not on filedocumented in this encounter Care Teams Shirt Cleaner Relationship Specialty Start Date End Date Rosie Mathews MD [address] [place] [address] PCP - General Family Medicine 11/25/17 11/23/23 documented as of this encounter
--- OUTSIDE RECORDS SUMMARY | 2024-03-05 10:22 | XMS_ITS | Encounter Summary ---
Author Organization Formerly [facility] [place] [address] Care Team Providers Care House Moving Supervisor Name Role Phone Rosie Mathews MD Primary Care Provider [phone] Reason for Visit * Auth/Cert (Routine) Specialty Diagnoses / Procedures Referred By Contbruce t Referred To Contact Diagnoses Unstable angina Chest pain NSTEMI Procedures CARDIAC CATHETERIZATION Rosa Dewey MD [facility] [place] [address] [facility] Referral ID Status Reason Start Date Expiration Date Visits Re quested Visits Authorized [id number] 1 1 Encounter Details Date Type Department Care Team (Late st Contact Info) Description 11/01/2023 3:33 PM EDT - 11/01/2023 5:03 PM EDT [place] [address] Rosa Dewey MD [facility] [address] [place], [place] [id number] CARDIAC CATHETERIZATION Social History Tobacco Use Types Packs/Day Years Used Date Smoking Tobacco: Former Smokeless Tobacco: Never Alcohol Use Standard Drinks/Week Comments Not Currently 0 (1 standard drink = 0.6 oz pur e alcohol) [facility] Utilities Answer Date Recorded [...] for hypertension and hyperlipidemia who presented to [facility] as a transfer from [facility] as a possible STEMI alert with acute onset chest pain. The patient reports that her symptoms initially began on Tuesday when she was walking to [facility] and experienced bilateral arm heaviness [...] or PND. The patient subsequently presented to [facility] as a walk-in for further evaluation. [...] on repeat, her TRU resolved. Cardiology at [facility] was consulted for transfer; the patient was loaded with aspirin 324 mg and ticagrelor 180 mg, started on a heparin drip, and given nitroglycerin with improvement in chest pain. Upon arrival to [facility], the patient was taken directly to the Sewing Inspector. Two lesions were discovered: one in the prox RCA (felt to almost be a DESIGN ENGINEER AGRICULTURAL EQUIPMENT but they were able to wire, balloon, [...] dose administered prior to arrival in the cook house laborer. Recommended anti-platelet/anti-thrombotic regimen: Continue aspirin 81 [...] and low lung volumes. Findings similar to floral decorator radiograph from CT 10/30/2023. Pending Studies and [...] 10:40 AM Izaiah Meyer MD Cardiology at [facility] Arrive at: [facility] [address] [phone] Future Orders Complete By Expires Referral to Cardiac Rehab [[id number] Custom] As directed Process Instructions: If no [...] Santos for admission to Home Health. [address] [facility] [address] (home) Date of : 1940 Inpatient DOCUMENTATION FOR VNA SERVICES (INCLUDING THOSE PATIENTS WITH MEDICARE COVERAGE REQUIRING HOME VNA SERVICES AND/OR HOSPICE SERVICES) PATIENT'S LOCATION: Adin Santos [address] [facility] [address] (home) Cell: Telephone Information: Remarketing Rep's Name: self In discussion with the attending physician, it is certified that this patient is under their care and that they, or a Nurse Practitioner, Clinical Nurse specialist or Physician Fashion Illustrator who is working directly with them, had [...] regarding health issues HOME HEALTH CARE AGENCY: [facility] [address] [address] START OF CARE: within 24-48 hours of [...] the heart but one of your heart amrtin was a little stunned. You will need [...] MD / Dr. Masood Pierson [address] [place] [address] 11/09/23 1:55 PM arrival for 2:10 PM appointment Collar Shaper Operator: Izaiah Meyer MD [address] [place] [address] , 11/24/2023 10:40 AM Your Inpatient Medical Team at [facility] Name(s) of your inpatient provider(s): Attending physician: Rosa Hugo MD Resident physicians: Emile Robles MD; Elmer Tamez MD If you have non-emergent questions, prior to your follow-up visit call: Tuesday-Tuesday between the hours of 8AM-5PM please call the Cardiology Clinic [phone] to speak with a nurse. All other hours please call the Hospital [employer] [phone] and ask to speak to the director of architecture on-call. Your Primary Care Provider Rosie Mathews MD [phone] For questions regarding this document or issues relating to this hospitalization on the Medical Service, please contact your inpatient physician through the [facility] [employer] . Issues afterhours and on weekends will be handled by the Collar Shaper Operator staff on-call. Associated attestation - Rosa [...] Mathews MD / Dr. Masood Pierson [address] [place] [address] 11/09/23 1:55 PM arrival for 2:10 PM appointment Collar Shaper Operator: Izaiah Meyer MD [address] [place] [address] , 11/24/2023 10:40 AM Your Inpatient Medical Team at [facility] Name(s) of your inpatient provider(s): Attending physician: Rosa Hugo MD Resident physicians: Emile Robles MD; Elmer Tamez MD If you have non-emergent questions, prior to your follow-up visit call: Tuesday-Tuesday between the hours of 8AM-5PM please call the Cardiology Clinic [phone] to speak with a nurse. All other hours please call the Hospital [employer] [phone] and ask to speak to the director of architecture on-call. Your Primary Care Provider Rosie Mathews MD [phone] documented in this encounter Medications at Time [...] for hypertension and hyperlipidemia who presented to [facility] as a transfer from [facility] as a possible STEMI alert with [...] for hypertension and hyperlipidemia who presented to [facility] as a transfer from [facility] as a possible STEMI alert with [...] Resident on Cardiology Service Cardiology S1 (Pager [phone]) Note written in conjunction with Claudio Perla [facility] Medical Student, MS3 Associated attestation - Rosa [...] Nirmala Webb - 11/01/2023 11:25 AM EDT Flour Blender Encounter Note Patient Name: Adin Santos : [id number] MR#: [id number] Admit Date: 10/30/2023 5:11 PM Hospital Day 2 days Narrative: Self initiated visit to patient for Spiritual support in a regular unit rounds. Assessment: Patient is in the bathroom at the time of this visit. Not a good time for Health Services Coordinator visit. Intervention and Outcome: An attempted [...] for hypertension and hyperlipidemia who presented to [facility] as a transfer from [facility] as a possible STEMI alert with [...] and low lung volumes. Findings similar to floral decorator radiograph from CT 10/30/2023. Scheduled Medications: [AUG [...] for hypertension and hyperlipidemia who presented to [facility] as a transfer from [facility] as a possible STEMI alert with [...] Resident on Cardiology Service Cardiology S1 (Pager [phone]) Note written in conjunction with Claudio Perla [facility] Medical [facility], MS3 Associated attestation - Rosa [...] for hypertension and hyperlipidemia who presented to [facility] as a transfer from [facility] as a possible STEMI alert with acute onset chest pain. Active Problems: Active Hospital Problems Diagnosis Unstable angina Resolved Hospital Problems No resolved problems to display. 24 hr events: - Cath'd yesterday with lesion in the proximal RCA (initially thought it was DESIGN ENGINEER AGRICULTURAL EQUIPMENT but they were ableto wire, balloon and [...] and low lung volumes. Findings similar to floral decorator radiograph from CT 10/30/2023. TTE (10/30): Interpretation [...] for hypertension and hyperlipidemia who presented to [facility] as a transfer from [facility] as a possible STEMI alert with [...] Resident on Cardiology Service Cardiology S1 (Pager [phone]) Note written in conjunction with Claudio Perla [facility] Medical Student, MS3 Associated attestation - Rosa [...] PCP: Rosie Mathews MD PCP phone number: [phone] Date of Admission: 10/30/2023 ( Hospital Day 0 days ) Attending:Rosa Cornejo MD ID: Adin Santos is a 83 y.o. female PMH significant for hypertension and hyperlipidemia who presented to [facility] as a transfer from [facility] as a possible STEMI alert with acute onset chest pain. The patient reports that her symptoms initially began on Tuesday when she was walking to [facility] and experienced bilateral arm heaviness [...] or PND. The patient subsequently presented to [facility] as a walk-in for further evaluation. [...] on repeat, her TRU resolved. Cardiology at [facility] was consulted for transfer; the patient was loaded with aspirin 324 mg and ticagrelor 180 mg, started on a heparin drip, and given nitroglycerin with improvement in chest pain. Upon arrival to [facility], the patient was taken directly to the Sewing Inspector. Two lesions were discovered: one in the prox RCA (felt to almost be a DESIGN ENGINEER AGRICULTURAL EQUIPMENT but they were able to wire, balloon, [...] and low lung volumes. Findings similar to floral decorator radiograph from CT 10/30/2023. Assessment & Plan: Adin Santos is a 83 y.o. female PMH significant for hypertension and hyperlipidemia who presented to [facility] as a transfer from [facility] as a possible STEMI alert with [...] information for follow-up Home Health & Hospice, [place] [address] TANESHA BOYCE confirmed with [facility] that they will see the patient [...] N/A Patient is insured through: Primary Insurance: [employer] MANAGED MEDICARE Payor: [employer] MANAGED MEDICARE / Plan: [employer] MANAGED MEDICARE PPO / Product Type: *No [...] the room. Electrolytes replaced, see MAR. laboratory analyst sites remained C/D/I with baseline ecchymosis unchanged. Pt complained of back pain, lidocaine patch given. Right IV infiltrated during infusion, patient is marked with sharpie, IV removed. See flowsheet for I+O's and safety rounding. Patient is able to make needs known and call capps within reach. PLAN MOVING FORWARD: Monitor Tele, control BP, monitor cook house laborer sites, D/C Planning INDIVIDUALIZED FALL PREVENTION [...] and above on RA. PT went to cook house laborer today. Left fem site oozed throughout [...] MOVING FORWARD: Monitor Tele, control BP, monitor cook house laborer sites, D/C Planning INDIVIDUALIZED FALL PREVENTION [...] surrogate would be surrogate decision maker per [place] surrogate decision making law. (Only good for 180 days) Any patient receiving care in [place] must abide by [place] law. The hierarchy for surrogate decision making [...] has the electric, gas, oil, or water [employer] threatened to shut off services in your [...] toilet seat Home Address confirmed as: [address] [facility] [address] Social & Family Supports: All names listed below confirmed with patient as current and correct Extended Emergency Contact Information Primary Emergency Contact: Iris Downing Address: [address] [place], [place] [address] [place] [address] Mobile Relation: Child Secondary Emergency Contact: Karen More Address: [address] [facility] Mobile Relation: Child Current Care Provided by: self Provides Primary Care For: no one Caregiver if needed: child(emmanuel), adult Quality of Family relationships: involved, supportive Community Resources being provided currently: other (see comments) (receives [facility] services at home (1xweekly)) Behavioral Health [...] Specific Information: N/A Health/Prescription Coverage: Primary Insurance: [employer] MANAGED MEDICARE Payor: [employer] MANAGED MEDICARE / Plan: [employer] MANAGED MEDICARE PPO / Product Type: *No Product type* / Secondary Insurance: N/A Prescription Coverage: Yes Preferred Pharmacy: [id number] - [place], [place] - [address] [place] [id number] Status: Patient is a : No Primary Care Provider listed: Masood Pierson MD [phone] Patient/Caregiver Goals of Treatment: home when MR Potential Needs for Transition of Care: home health care Agency Referrals: Not Applicable I have met with the patient to: discuss discharge planning needs. provide the [facility], Office of Care Management letter from the Production Sorter pertaining to rehab referrals. provide a letter describing our affiliations within the [facility] and educate about their right to choose where referrals are sent. provide a list of Home Health Agencies / Durable Medical Equipment vendors which serve their preferred geographic area. provided patient with [facility] Star Quality Rating handout. They have requested referrals to: [facility] [address] [place] [address] Note routed to a Environmental Research Project Manager who will communicate referrals to facilities [...] PO hydralazine added for BP control. laboratory analyst sites remain C/D/I, ecchymosis unchanged th roughout shift. See flowsheet for I+O's and safety rounding. Patient is able to make needs known and call capps within reach. PLAN MOVING FORWARD: Monitor Tele, control CP and BP, NPO at MD for cath, monitor cook house laborer sites, D/C Planning INDIVIDUALIZED FALL PREVENTION [...] AM EDT Office Visit Cardiology at [address] [place] [address] Izaiah Meyer MD [facility] [place] [address] Scheduled Referrals Name Type Priority Associated Diagnoses [...] [facility] Lymph % 15.2 % [facility] Lymphocytes Abs 1.3 0.9 - 3.2 x10(3)/mc L [facility] Monocyte % 16.9 % [facility] Monocyte Abs 1.4(H) 0.3 - 0.9 x10(3)/mc L [facility] Eos % 3.7 % [facility] Eosinophils Abs 0.3 0.0 - 0.4 x10(3)/ L [facility] Basophil % 0.5 % [facility] Baso Absolute 0.0 0.0 - [...] HEMATOLOGY ORDERABLE S [facility] [place] [address] * (ABNORMAL) Hemogram (11/03/2023 3:46 AM EDT) [...] [facility] NRBC% auto 0.0 % [facility] NRBC Absolute 0.000 0.000 - 0.000 x10(3)/mc L [facility] Blood 11/03/2023 3:46 AM EDT 11/03/2023 4:11 AM EDT Narrative Resulting Agency Comment Spec In Lab Qamar Gallardo MD HEMATOLOGY ORDERABLE S Performing Organization Address City/[facility]/ZIP Co de Phone Number [facility] [place] [address] * Phosphorus (11/03/2023 3:46 AM EDT) Pathologist [facility] Phosphorus 3.2 2.5 - 4.5 mg/dL [facility] Comment:result rechecked-KS Blood 11/03/2023 3:46 AM EDT 11/03/2023 4:11 AM EDT Narrative Resulting Agency Comment Spec In Lab Rosa Cornejo MD CHEMISTRY ORDERABLE S Performing Organization Address [facility] Co de Phone Number [facility] [place] [address] * Magnesium (11/03/2023 3:46 AM EDT) [facility] Magnesium 0.90 0.69 - 1.07 mmol/L [facility] Blood 11/03/2023 3:46 AM EDT 11/03/2023 4:11 AM EDT Narrative Resulting Agency Comment Spec In Lab Rosa Cornejo MD CHEMISTRY ORDERABLE S Performing Organization Address [facility] Co de Phone Number [facility] [place] [address] * (ABNORMAL) Basic Metabolic Panel (non-fasting) (11/03/2023 3:46 AM EDT) Pathologist [facility] Glucose 105 65 - 199 mg/dL [place] [...] CHEMISTRY ORDERABLE S [facility] [place] [address] * EKG 12 Lead (11/02/2023 12:44 PM EDT) Ventricular rate 83 BPM MUSE SYSTEM Atrial Rate 83 BPM MUSE SYSTEM P-R Interval 216 ms MUSE SYSTEM QRS Duration 90 ms MUSE SYSTEM Q-T Interval 384 ms MUSE SYSTEM QTC Calculated (Bezet) 451 ms MUSE SYSTEM Calculated P Keyser 92 degrees MUSE SYSTEM Calculated R Keyser -51 degrees MUSE SYSTEM Calculated T Keyser -33 degrees MUSE SYSTEM INTERPRETATION Sinus rhythm [...] Cells Raw Data, Urine 10(H) <=4 /HPF [facility] Hyaline Casts, Urine 2 0 - 2 /LPF [facility] Comment: Interpret results with caution, microscopic results are from suboptimal specimen volume Clean Catch Urine 11/02/2023 11:40 AM EDT 11/02/2023 12:05 PM EDT Narrative Resulting Agency Comment Spec In Lab Elmer Tamez MD URINE ORDERABLES [facility] [place] [address] * (ABNORMAL) Urinalysis with reflex Culture (11/02/2023 [...] HOSPITAL [facility] Leukocytes, Urine Dipstick Small(A) Negative [facility] Appearance, Urine Dipstick Cloudy(A) Clear [facility] Specific [place] Urine Automated >=1.030(A) 1.005 - 1.030 [facility] Color, Urine Dipstick Dark Yellow Yellow [facility] Reflex to Culture Yes [facility] Clean Catch Urine 11/02/2023 11:40 AM EDT 11/02/2023 12:04 PM EDT Narrative Resulting Agency Comment Spec In Lab Rosa Hugo MD URINE ORDERABLES [facility] [place] [address] * Respiratory Panel PCR (11/02/2023 10:15 AM EDT) Respiratory Panel Source CHAIN MAKER Swab [facility] Respiratory Panel PCR Negative Negative [facility] Comment: Respiratory Panels are performed on the Marfeel, using multiplexed PCR nucleic acid detection. ??Negative [...] performed using the BioFire Respiratory Panel 2.1 ([employer]) as authorized by the FDA issued Emergency Use Authorization (EUA). This panel also tests for multiple other viral and bacterial pathogens. This assay is intended for In-vitro Diagnostic (IVD) use with nasopharyngeal swabs in viral transport media. The assay is performed based on the instructions for use and additional guidance provided by the FDA. Testing is performed in laboratories within the [facility], each of which is certified under [...] fact sheets at the following FDA website: https://www.fda.gov/medical-devices/wybbuqhngny-dhceija-6539-lvsrf-19-pjqwflgij- use-a asjavkhjcjkkz-zyxfamg-bfptlry/oyszn-hyaphhlcanq-vyuf Human Metapneumovirus Not Detected Not Detected [facility] [...] ERAL ORDERABLES [facility] [place] [address] * XR Chest One View (11/02/2023 2:51 AM EDT) WORKSTATION ID [id number] RAD Anatomical Region Laterality Modality Chest N/A [...] who have questions please contact the health customer care assistant that requested your imaging first. ? Electronically signed by: Omaira Tran MD, [facility] ([phone]), at 11/02/2023 4:56 AM Narrative 11/02/2023 4:56 [...] patients who have questions please contactthe health customer care assistant that requested your imaging first. Electronically signed by: Omaira Tran MD, [facility]([phone]), at 11/02/2023 4:56 AM Rosa Hugo MD IMG DX ORDERABLES * (ABNORMAL) Differential, Automated (11/02/2023 12:35 AM EDT) Neutrophil % 76.5 % [facility] Neutrophil Absolute 7.69(H) 1.70 - 6.10 x10(3)/mc L [facility] Lymph % 8.3 % [facility] Lymphocytes Abs 0.8(L) 0.9 - 3.2 x10(3)/mc L [facility] Monocyte % 12.9 % [facility] Monocyte Abs 1.3(H) 0.3 - 0.9 x10(3)/mc L [facility] Eos % 1.4 % [facility] Eosinophils Abs 0.1 0.0 - 0.4 x10(3)/mc L [facility] Basophil % 0.4 % [facility] Baso Absolute 0.0 0.0 - [...] HEMATOLOGY ORDERABLE S [facility] [place] [address] * (ABNORMAL) Hemogram (11/02/2023 12:35 AM EDT) [...] [facility] NRBC% auto 0.0 % [facility] NRBC Absolute 0.000 0.000 - 0.000 x10(3)/mc L [facility] Blood 11/02/2023 12:3 5 AM EDT 11/02/2023 12:43 AM EDT Narrative Resulting Agency Comment Spec In Lab Qamar Gallardo MD HEMATOLOGY ORDERABLE S [facility] [place] [address] * (ABNORMAL) Phosphorus (11/02/2023 12:35 AM EDT) Phosphorus 1.6(L) 2.5 - 4.5 mg/dL [facility] Blood 11/02/2023 12:3 5 AM EDT 11/02/2023 12:43 AM EDT Narrative Resulting Agency Comment Spec In Lab Rosa Cornejo MD CHEMISTRY ORDERABLE S Performing Organization Address City/[facility]/ZIP Co de Phone Number [facility] [place] [address] * Magnesium (11/02/2023 12:35 AM EDT) Magnesium 0.87 0.69 - 1.07 mmol/L [facility] Blood 11/02/2023 12:3 5 AM EDT 11/02/2023 12:43 AM EDT Narrative Resulting Agency Comment Spec In Lab Rosa Cornejo MD CHEMISTRY ORDERABLE S Performing Organization Address City/[facility]/ZIP Co de Phone Number [facility] [place] [address] * Basic Metabolic Panel (non-fasting) (11/02/2023 12:35 [...] CHEMISTRY ORDERABLE S [facility] [place] [address] * Blood culture (11/02/2023 12:35 AM EDT) Blood Culture No growth at 5 days. [facility] Blood 11/02/2023 12:3 5 AM EDT 11/02/2023 1:55 AM EDT Comment:#2 site ukn Narrative Resulting Agency Comment Spec In Lab Rosa Hugo MD MICROBIOLOGY - BLO OD ORDERABLES Performing Organization Address City/[facility]/ZIP Co de Phone Number [facility] [place] [address] * Blood culture (11/02/2023 12:15 AM EDT) Blood Culture No growth at 5 days. [facility] Blood 11/02/2023 12:1 5 AM EDT 11/02/2023 1:54 AM EDT Comment:#1site unk Narrative Resulting Agency Comment Spec In Lab Rosa Hugo MD MICROBIOLOGY - BLO OD ORDERABLES Performing Organization Address [facility] Co de Phone Number [facility] [place] [address] * EKG 12 Lead (11/01/2023 10:10 PM EDT) Ventricular rate 139 BPM MUSE SYSTEM Atrial Rate 139 BPM MUSE SYSTEM P-R Interval 168 ms MUSE SYSTEM QRS Duration 84 ms MUSE SYSTEM Q-T Interval 286 ms MUSE SYSTEM QTC Calculated (Bezet) 435 ms MUSE SYSTEM Calculated R Keyser -59 degrees MUSE SYSTEM Calculated T Keyser -27 degrees MUSE SYSTEM INTERPRETATION Mid-RP tachycardia, [...] interpretation Confirmed by fellow MD Bowen Ashley ([id number]) on 11/04/2023 7:57:50 AM Confirmed by MD Carrillo Danette ([id number]) on 11/04/2023 4:32:03 PM MUSE SYSTEM 11/01/2023 [...] RDW Standard Deviation 54.0(H) 37.0 - 46.0 [facility] RDW coefficient of variation 14.6(H) 11.5 - 14.1 % [facility] Mean Platelet Volume 11.2 7.6 - 12.9 [facility] NRBC% auto 0.0 % [facility] NRBC Absolute 0.000 0.000 - 0.000 x10(3)/mc L [facility] Blood 11/01/2023 10:0 6 PM EDT 11/01/2023 10:22 PM EDT Narrative Resulting Agency Comment Spec In Lab Rosa Hugo MD HEMATOLOGY ORDERAB LES [facility] [place] [id number] * POCT Glucose (11/01/2023 5:59 PM EDT) Glucose, POC 104 65 - 199 mg/dL [facility] Comment: Supplemental ranges: <140 mg/dL before meals <180 mg/dL all other times of the day Blood 11/01/2023 5:59 PM EDT 11/01/2023 5:59 PM EDT Rosa Hugo MD POINT OF CARE TEST ORDERABLES [facility] [place] [address] * POCT Glucose (11/01/2023 5:35 PM EDT) Glucose, POC 85 65 - 199 mg/dL [facility] Comment: Supplemental ranges: <140 mg/dL before meals <180 mg/dL all other times of the day Blood 11/01/2023 5:35 PM EDT 11/01/2023 5:35 PM EDT Rosa Hugo MD POINT OF CARE TEST ORDERABLES [facility] [place] [address] * EKG 12 Lead (11/01/2023 3:22 PM EDT) Ventricular rate 59 BPM MUSE SYSTEM Atrial Rate 59 BPM MUSE SYSTEM P-R Interval 220 ms MUSE SYSTEM QRS Duration 94 ms MUSE SYSTEM Q-T Interval 428 ms MUSE SYSTEM QTC Calculated (Bezet) 423 ms MUSE SYSTEM Calculated P Keyser 76 degrees MUSE SYSTEM Calculated R Keyser -50 degrees MUSE SYSTEM Calculated T Keyser -59 degrees MUSE SYSTEM INTERPRETATION Sinus bradycardia with sinus arrhythmia with 1st degree A-V block Left anterior fascicular block Moderate voltage criteria for LVH, may be normal variant ( R in aVL , Calpine product ) Cannot rule out Inferior infarct [...] Modality Other Narrative 11/02/2023 4:57 PM EDT ?[facility] ? Cardiac Catheterization/Intervention Report ? Patient Name: Adin Santos. ? Procedure Date: 11/01/2023 ? A #: [id number] ? Primary Physician: Rosa Dewey I ? Case #: [id number] ? File Name: [id number] ? Catheterization Order Number: [id number] ? [facility] ? Final Report [place], [place] ? Patient Name: ? Adin M. Goguen ?ID#: ?[id number] ? : ?1940 ? Procedure Date: ? [...] was designated as ASA Class III. The [facility] clinical ?frailty scale is 4: Vulnerable. ? [...] procedure was Urgent. The indication for ?the cook house laborer visit is ACS greater than 24 [...] ??A premounted ? 3.50 x 15 mm [place] Sweetwater (RADHA) was deployed with a maximum ? [...] ? A premounted 3.50 x 15 mm [place] Sweet[place] (RADHA) was deployed ? with a maximum [...] dose administered prior to arrival in the cook house laborer. ?Recommended anti-platelet/anti-thrombotic regimen: ?Continue aspirin 81 mg daily for indefinitely. ?Continue clopidogrel 75 mg daily for 12 months then stop. ?These recommendations are made at the time of the intervention. Patient ?and provider preferences or a changing clinical situation may require ?modification of this regimen. Consult [facility] Interventional Cardiology for ?questions. ?The 1 year [...] Procedure Note Rosa Dewey MD - 12/12/2023 [facility] Cardiac Catheterization/Intervention Report Patient Name: Adin Santos Procedure Date: 11/01/2023 A #: [id number] Primary Physician: Rosa Dewey I Case #: [id number] File Name: [id number] Catheterization Order Number: [id number] [facility] FinalReport [place], [place] Patient Name: Adin Santos ID#:[id number] :1940 Procedure Date: November 01, 2023 Case [...] diagnostic procedure was Urgent. The indicationfor the cook house laborer visit is ACS greater than 24 [...] 14 atmospheres. Apremounted 3.50 x 15 mm [place] Sweetwater (RADHA) was deployed with amaximum inflation pressure [...] The lesion was predilated with a 3.00mm [id number] MM balloon with a maximum inflation pressure of 14atmospheres. A premounted 3.50 x 15 mm [place] Sweet[place] (RADHA) wasdeployed with a maximum inflation pressure [...] dose administered prior to arrival in the cook house laborer. Recommended anti-platelet/anti-thrombotic regimen: Continue aspirin 81 mg daily for indefinitely. Continue clopidogrel 75 mg daily for 12 months then stop. These recommendations are made at the time of the intervention.Patient and provider preferences or a changing clinical situation mayrequire modification of this regimen. Consult [facility] Interventional Cardiologyfor questions. The 1 year bleeding [...] TEST O RDERABLES [facility] [place] [address] * (ABNORMAL) Differential, Automated (11/01/2023 3:09 AM EDT) Neutrophil % 63.9 % [facility] Neutrophil Absolute 5.54 1.70 - 6.10 x10(3)/mc L [facility] Lymph % 20.0 % [facility] Lymphocytes Abs 1.7 0.9 - 3.2 x10(3)/mc L [facility] Monocyte % 11.9 % [facility] Monocyte Abs 1.0(H) 0.3 - 0.9 x10(3)/ L [facility] Eos % 3.2 % [facility] Eosinophils Abs 0.3 0.0 - 0.4 x10(3)/ L [facility] Basophil % 0.5 % [facility] Baso Absolute 0.0 0.0 - [...] Immature Gran Absolute 0.04 0.00 - 0.04 x10(3)/[facility] Blood 11/01/2023 3:09 AM EDT 11/01/2023 3:29 AM EDT Narrative Resulting Agency Comment Spec In Lab Qamar Gallardo MD HEMATOLOGY ORDERABLE S [facility] [place] [address] * (ABNORMAL) Hemogram (11/01/2023 3:09 AM EDT) White Blood Cell 8.7 4.0 - 9.5 x10(3)/ L [facility] Red Blood Cell 3.72(L) 4.00 - 5.21 x10(6)/[facility] Hemoglobin 12.5 11.7 - 15.5 [...] [facility] NRBC% auto 0.0 % [facility] NRBC Absolute 0.000 0.000 - 0.000 x10(3)/mc L [facility] Blood 11/01/2023 3:09 AM EDT 11/01/2023 3:29 AM EDT Narrative Resulting Agency Comment Spec In Lab Qamar Gallardo MD HEMATOLOGY ORDERABLE S [facility] [place] [address] * Phosphorus (11/01/2023 3:09 AM EDT) Phosphorus 2.5 2.5 - 4.5 mg/dL [facility] Blood 11/01/2023 3:09 AM EDT 11/01/2023 3:29 AM EDT Narrative Resulting Agency Comment Spec In Lab Rosa Cornejo MD CHEMISTRY ORDERABLE S [facility] [place] [address] * Magnesium (11/01/2023 3:09 AM EDT) Magnesium 0.82 0.69 - 1.07 mmol/L [facility] Blood 11/01/2023 3:09 AM EDT 11/01/2023 3:29 AM EDT Narrative Resulting Agency Comment Spec In Lab Rosa Cornejo MD CHEMISTRY ORDERABLE S [facility] [place] [address] * (ABNORMAL) Basic Metabolic Panel (non-fasting) (11/01/2023 [...] CHEMISTRY ORDERABLE S Performing Organization Address City/[facility]/ZIP Co de Phone Number [facility] [place] [address] * (ABNORMAL) Troponin (10/31/2023 2:46 PM EDT) [...] troponin value can be found in the [facility] Laboratory Test Catalog Troponin - [facility] Laboratory Test Catalog Reference: Fourth [place] Definition of Myocardial Infarction. Journal of the [employer] 2018;72:3077-5250 Blood 10/31/2023 2:46 PM EDT 10/31/2023 2:55 PM EDT Narrative Resulting Agency Comment Spec In Lab Jean Laboy MD CHEMISTRY ORDERABLES Performing Organization Address City/[facility]/ZIP Co de Phone Number [facility] [place] [address] * EKG 12 Lead (10/31/2023 1:07 PM EDT) Ventricular rate 54 BPM MUSE SYSTEM Atrial Rate 54 BPM MUSE SYSTEM P-R Interval 218 ms MUSE SYSTEM QRS Duration 92 ms MUSE SYSTEM Q-T Interval 540 ms MUSE SYSTEM QTC Calculated (Bezet) 512 ms MUSE SYSTEM Calculated P Keyser 85 degrees MUSE SYSTEM Calculated R Keyser -44 degrees MUSE SYSTEM Calculated T Keyser -69 degrees MUSE SYSTEM INTERPRETATION Sinus bradycardia [...] [place] Troponin-T, High Sensitivity 580(H) <=14 ng/L [place] [...] troponin value can be found in the [facility] Laboratory Test Catalog Troponin - [facility] Laboratory Test Catalog Reference: Fourth [place] Definition of Myocardial Infarction. Journal of the [employer] 2018;72:2761-6724 Blood 10/31/2023 11:3 7 AM EDT 10/31/2023 11:50 AM EDT Narrative Resulting Agency Comment Spec In Lab Rosa Cornejo MD CHEMISTRY ORDERABLE S [facility] [place] [place] [address] * ECHO COMPLETE (10/31/2023 8:52 AM EDT) Anatomical Region Laterality Modality Cardiac Other 10/31/2023 7:57 AM EDT Narrative 10/31/2023 9:45 AM EDT [address] [place] [address] ? Echocardiogram Report Name: TOM ADIN Dorene ? Study Date: 10/31/2023 07:57 AMBP: 106/76 mmHg ? Patient Location: [address] : 1940 ? Height: 163 cm ? Account: [id number] Age: 83 yrs ? Weight: 76 kg Gender: Female ?BSA: 1.8 m2 Ordering Physician: ROSA DEWEY Referring Physician: OMAIRA GIRON Performed By: HAFSA Carmichael Reason For Study: STEMI Interpreting Fellow: Raymond Warren. Exam Location: [facility]. Interpretation Summary -The left ventricle is of [...] is no prior echocardiogram for comparison. Procedure Complete-46572. Satisfactory quality. There is sinus bradycardia. Left [...] Note Edgard Wang MD - 10/31/2023 [address] [place] [address] Echocardiogram Report Name: ADIN SANTOS Study Date: 407:57 AMBP: 106/76 mmHg Patient Location: [address] : 1940 Height: 163 cm Account: [id number] Age: 83 yrs Weight: 76 kg Gender: Female BSA: 1.8 m2 Ordering Physician: ROSA DEWEY Referring Physician: OMAIRA GIRON Performed By: HAFSA Carmichael Reason For Study: STEMI Interpreting Fellow: Raymond Warren. Exam Location: [facility]. Interpretation Summary -The left ventricle is of [...] is no prior echocardiogram for comparison. Procedure Complete-47435. Satisfactory quality. There is sinus bradycardia. Left [...] * (ABNORMAL) Troponin (10/31/2023 8:51 AM EDT) [facility] Troponin-T, High Sensitivity 571(H) <=14 ng/L [place] [...] troponin value can be found in the [facility] Laboratory Test Catalog Troponin - [facility] Laboratory Test Catalog Reference: Fourth [place] Definition of Myocardial Infarction. Journal of the [employer] 2018;72:1629-3290 Blood 10/31/2023 8:51 AM EDT 10/31/2023 9:12 AM EDT Narrative Resulting Agency Comment Spec In Lab Rosa Cornejo MD CHEMISTRY ORDERABLE S Performing Organization Address [facility] Co de Phone Number [facility] [place] [address] * CARDIAC CATHETERIZATION (10/31/2023 8:10 AM EDT) Anatomical Region Laterality Modality Other Narrative 11/07/2023 9:42 AM EDT ?[facility] ? Cardiac Catheterization/Intervention Report ? Patient Name: Adin Santos ? Procedure Date: 10/30/2023 ? A #: [id number] ? Primary Physician: Rosa Dewey I ? Case #: [id number] ? File Name: [id number] ? Catheterization Order Number: [id number] ? [facility] ? Final Report [place], [place] ? Patient Name: ? Adin M. Goguen ?ID#: ?[id number] ? : ?1940 ? Procedure Date: ? [...] was designated as ASA Class III. The [facility] clinical frailty scale ?is 5: Mildly Frail. [...] procedure was Emergent. The indication for ?the cook house laborer visit is ACS less than or [...] A premounted 4.00 x 38 mm [place] Sweetwater (RADHA) was deployed ? with a maximum [...] dose administered prior to arrival in the cook house laborer. ?Recommended anti-platelet/anti-thrombotic regimen: ?Continue aspirin 81 mg daily for 12 months then stop. ?Continue clopidogrel 75 mg daily for indefinitely. ?These recommendations are made at the time of the intervention. Patient ?and provider preferences or a changing clinical situation may require ?modification of this regimen. Consult [facility] Interventional Cardiology for ?questions. ? Conclusions: ?* [...] Procedure Note Rosa Dewey MD - 12/05/2023 [facility] Cardiac Catheterization/Intervention Report Patient Name: Adin Santos Procedure Date: 10/30/2023 A #: [id number] Primary Physician: Rosa Dewey I Case #: [id number] File Name: [id number] Catheterization Order Number: [id number] [facility] FinalReport [place], [place] Patient Name: Adin Santos ID#:[id number] :1940 Procedure Date: October 30, 2023 Case [...] was designated as ASA Class III. The [facility] clinical frailtyscale is 5: Mildly Frail. Diagnostic Tests: Electrocardiography: EKG was assessed by ECG. EKG was Abnormal. EKG showed STDeviation >= 0.5 mm, other abnormality and dynamic EKG changes. Medications Prior to Procedure: Aspirin, Angiotensin II Receptor Rodrick, Beta Rodrick andStatin. Indications for Diagnostic Cath: The priority of the diagnostic procedure was Emergent. Theindication for the cook house laborer visit is ACS less than or [...] A premounted 4.00 x 38 mm [place] Sweetwater (RADHA) wasdeployed with a maximum inflation pressure [...] dose administered prior to arrival in the cook house laborer. Recommended anti-platelet/anti-thrombotic regimen: Continue aspirin 81 mg daily for 12 months then stop. Continue clopidogrel 75 mg daily for indefinitely. These recommendations are made at the time of the intervention.Patient and provider preferences or a changing clinical situation mayrequire modification of this regimen. Consult [facility] Interventional Cardiologyfor questions. Conclusions: * Two vessel [...] * (ABNORMAL) Troponin (10/31/2023 4:21 AM EDT) [facility] Troponin-T, High Sensitivity 457(H) <=14 ng/L [place] [...] troponin value can be found in the [facility] Laboratory Test Catalog Troponin - [facility] Laboratory Test Catalog Reference: Fourth [place] Definition of Myocardial Infarction. Journal of the [employer] 2018;72:0575-3322 Blood 10/31/2023 4:21 AM EDT 10/31/2023 4:30 AM EDT Narrative Resulting Agency Comment Spec In Lab Rosa Cornejo MD CHEMISTRY ORDERABLE S Performing Organization Address City/State/[facility] Co de Phone Number [facility] [place] [address] * (ABNORMAL) Differential, Automated (10/31/2023 3:05 AM EDT) Neutrophil % 71.7 % [facility] Neutrophil Absolute 8.21(H) 1.70 - 6.10 x10(3)/mc L [facility] Lymph % 16.9 % [facility] Lymphocytes Abs 1.9 0.9 - 3.2 x10(3)/mc L [facility] Monocyte % 9.4 % [facility] Monocyte Abs 1.1(H) 0.3 - 0.9 x10(3)/mc L [facility] Eos % 1.3 % [facility] Eosinophils Abs 0.2 0.0 - 0.4 x10(3)/mc L [facility] Basophil % 0.4 % [facility] Baso Absolute 0.0 0.0 - [...] HEMATOLOGY ORDERABLE S [facility] [place] [address] * (ABNORMAL) Hemogram (10/31/2023 3:05 AM EDT) [...] LABORATORY NRBC% auto 0.0 % [facility] NRBC Absolute 0.000 0.000 - 0.000 x10(3)/mc L [facility] Blood 10/31/2023 3:05 AM EDT 10/31/2023 3:13 AM EDT Narrative Resulting Agency Comment Spec In Lab Qamar Gallardo MD HEMATOLOGY ORDERABLE S Performing Organization Address [facility] de Phone Number [facility] [place] [address] * (ABNORMAL) APTT (10/31/2023 3:05 AM EDT) [...] ORDERABL ES Performing Organization Address [facility] de Phone Number [facility] [place] [address] * (ABNORMAL) Prothrombin Time (10/31/2023 3:05 AM [...] HEMATOLOGY ORDERABL ES [facility] [place] [address] * (ABNORMAL) Differential, Automated (10/31/2023 1:37 AM EDT) Neutrophil % 71.1 % [facility] Neutrophil Absolute 7.53(H) 1.70 - 6.10 x10(3)/mc L [facility] Lymph % 18.0 % [facility] Lymphocytes Abs 1.9 0.9 - 3.2 x10(3)/ L [facility] Monocyte % 8.7 % [facility] Monocyte Abs 0.9 0.3 - 0.9 x10(3)/mc L [facility] Eos % 1.6 % [facility] Eosinophils Abs 0.2 0.0 - 0.4 x10(3)/mc L [facility] Basophil % 0.4 % [facility] Baso Absolute 0.0 0.0 - [...] HEMATOLOGY ORDERABLE S [facility] [place] [address] * (ABNORMAL) Hemogram (10/31/2023 1:37 AM EDT) [...] [facility] NRBC% auto 0.0 % [facility] NRBC Absolute 0.000 0.000 - 0.000 x10(3)/mc L [facility] Blood 10/31/2023 1:37 AM EDT 10/31/2023 1:46 AM EDT Narrative Resulting Agency Comment Spec In Lab Qamar Gallardo MD HEMATOLOGY ORDERABLE S [facility] [place] [address] * Phosphorus (10/31/2023 1:37 AM EDT) Phosphorus 3.2 2.5 - 4.5 mg/dL [facility] Blood 10/31/2023 1:37 AM EDT 10/31/2023 1:46 AM EDT Narrative Resulting Agency Comment Spec In Lab Rosa Cornejo MD CHEMISTRY ORDERABLE S Performing Organization Address City/[facility]/ZIP Co de Phone Number [facility] [place] [address] * Magnesium (10/31/2023 1:37 AM EDT) Magnesium 0.83 0.69 - 1.07 mmol/L [facility] Blood 10/31/2023 1:37 AM EDT 10/31/2023 1:46 AM EDT Narrative Resulting Agency Comment Spec In Lab Rosa Cornejo MD CHEMISTRY ORDERABLE S Performing Organization Address City/[facility]/ZIP Co de Phone Number [facility] [place] [address] * Basic Metabolic Panel (non-fasting) (10/31/2023 1:37 [...] CHEMISTRY ORDERABLE S [facility] [place] [address] * (ABNORMAL) Troponin (10/31/2023 1:37 AM EDT) [...] troponin value can be found in the [facility] Laboratory Test Catalog Troponin - [facility] Laboratory Test Catalog Reference: Fourth [place] Definition of Myocardial Infarction. Journal of the [employer] 2018;72:7671-8578 Blood 10/31/2023 1:37 AM EDT 10/31/2023 1:46 AM EDT Narrative Resulting Agency Comment Spec In Lab Rosa Cornejo MD CHEMISTRY ORDERABLE S Performing Organization Address City/[facility]/[place] [address] * EKG 12 Lead (10/31/2023 1:20 AM EDT) Ventricular rate 52 BPM MUSE SYSTEM Atrial Rate 52 BPM MUSE SYSTEM P-R Interval 224 ms MUSE SYSTEM QRS Duration 108 ms MUSE SYSTEM Q-T Interval 544 ms MUSE SYSTEM QTC Calculated (Bezet) 505 ms MUSE SYSTEM Calculated P Keyser 90 degrees MUSE SYSTEM Calculated R Keyser -57 degrees MUSE SYSTEM Calculated T Keyser -63 degrees MUSE SYSTEM INTERPRETATION Sinus bradycardia [...] (Bezet) 497 ms MUSE SYSTEM Calculated P Keyser 75 degrees MUSE SYSTEM Calculated R Keyser -53 degrees MUSE SYSTEM Calculated T Keyser -57 degrees MUSE SYSTEM INTERPRETATION Sinus bradycardia with 1st degree A-V block Left anterior fascicular block Moderate voltage criteria for LVH, may be normal variant ( R in aVL , Calpine product ) T wave abnormality, consider inferior [...] View (10/30/2023 10:10 PM EDT) WORKSTATION ID [id number] DH RAD Anatomical Region Laterality Modality Chest [...] and low lung volumes. Findings similar to floral decorator radiograph from CT 10/30/2023. Thank you for letting us participate in the care of this patient. ??If you are a health care provider and have any questions regarding this report, please contact the number below. ??For patients who have questions please contact the health customer care assistant that requested your imaging first. ? Electronically signed by: Wilson Mccartney MD, [facility] ([phone]), at 10/30/2023 10:32 PM Narrative 10/30/2023 10:32 [...] and low lung volumes. Findings similar to floral decorator radiograph from CT 10/30/2023. Thank you for letting us participate in the care of this patient. If youare a health care provider and have any questions regarding this report,please contact the number below. For patients who have questions please contactthe health customer care assistant that requested your imaging first. Rosa Cornejo MD IMG DX ORDERABLES * Green Tube HOLD (10/30/2023 10:05 PM EDT) [facility] Green Hold Sample in lab. [facility] Blood Venous Draw / Unknown 10/30/2023 10:05 PM EDT 10/30/2023 10:13 PM EDT Qamar Gallardo MD CHEMISTRY ORDERABLES [facility] [place] [address] * (ABNORMAL) Differential, Automated (10/30/2023 10:05 PM EDT) Pathologist [facility] [place] Neutrophil % 76.6 % [facility] Neutrophil Absolute 6.94(H) 1.70 - 6.10 x10(3)/mc L [facility] Lymph % 15.4 % [facility] Lymphocytes Abs 1.4 0.9 - 3.2 x10(3)/mc L [facility] Monocyte % 6.1 % [facility] Monocyte Abs 0.6 0.3 - 0.9 x10(3)/mc L [facility] Eos % 1.1 % [facility] Eosinophils Abs 0.1 0.0 - 0.4 x10(3)/mc L [facility] Basophil % 0.6 % [facility] Baso Absolute 0.0 0.0 - [...] MD HEMATOLOGY ORDERABLE S Performing Organization Address City/State/[facility] Co de Phone Number [facility] [place] [address] * (ABNORMAL) Hemogram (10/30/2023 10:05 PM EDT) [...] [facility] NRBC% auto 0.0 % [facility] NRBC Absolute 0.000 0.000 - 0.000 x10(3)/mc L [facility] Blood 10/30/2023 10:0 5 PM EDT 10/30/2023 10:12 PM EDT Narrative Resulting Agency Comment Spec In Lab Qamar Gallardo MD HEMATOLOGY ORDERABLE S Performing Organization Address City/[facility]/ZIP Co de Phone Number [facility] [place] [address] * Hemoglobin A1c (10/30/2023 10:05 PM EDT) [...] CHEMISTRY ORDERABLE S [facility] [place] [address] * Lipid Panel (Reflex Direct LDL) (10/30/2023 10:05 PM EDT) [facility] Cholesterol, Total 218 mg/dL Dorene [facility] Comment: Desirable: ? <200 mg/dL Borderline High: 200-239 mg/dL Higher: ?>zu=486 mg/dL Triglyceride 46 mg/dL [facility] Comment: Normal: ?<150 mg/dL Borderline High: 150-199 mg/dL High: ?200-499 mg/dL Very High: ? >sc=666 mg/dL HDL Cholesterol 64 mg/dL [facility] Comment: Females: High Risk: <50 mg/dL Males: High Risk: <40 mg/dL LDL Cholesterol 145 mg/dL [facility] Comment: Desirable: ? <100 mg/dL Above Desirable: 100-129 mg/dL Borderline High: 130-159 mg/dL High: ?160-189 mg/dL Very High: ? >ur=271 mg/dL Lipid Interpretation See Note [facility] [...] individuals with atherosclerotic cardiovascular disease (ASCVD)or LDL >qw=296 mg/dL, use a high-intensity statin (40-80 mg [...] MD CHEMISTRY ORDERABLE S Performing Organization Address [facility] Co de Phone Number [facility] [place] [address] * TSH [place] (10/30/2023 10:05 PM EDT) Thyroid Stimulating Hormone 3.35 0.27 - 4.20 mcIU/mL [facility] Comment: Reference Interval (mcIU/mL): Females: ??First Trimester: 0.23-3.88 ??Second Trimester: 0.22-3.90 ??Third Trimester: 0.44-4.66 Blood 10/30/2023 10:0 5 PM EDT 10/30/2023 10:12 PM EDT Narrative Resulting Agency Comment Spec In Lab Rosa Cornejo MD CHEMISTRY ORDERABLE S Performing Organization Address [facility]/ZIP Co de Phone Number [facility] [place] [address] * pro-Brain Natriuretic Peptide (10/30/2023 10:05 PM EDT) NT-proBNP 375 <=449 pg/mL [facility] Blood 10/30/2023 10:0 5 PM EDT 10/30/2023 10:12 PM EDT Narrative Resulting Agency Comment Spec In Lab Rosa Cornejo MD CHEMISTRY ORDERABLE S [facility] [place] [address] * (ABNORMAL) Comprehensive metabolic panel (non-fasting) (10/30/2023 10:05 PM EDT) Pathologist [facility] [place] Glucose 121 65 - 199 mg/dL [place] [...] CHEMISTRY ORDERABLE S Performing Organization Address City/[facility]/ZIP Co de Phone Number [facility] [place] [address] * Phosphorus (10/30/2023 10:05 PM EDT) Phosphorus 3.3 2.5 - 4.5 mg/dL [facility] Blood 10/30/2023 10:0 5 PM EDT 10/30/2023 10:12 PM EDT Narrative Resulting Agency Comment Spec In Lab Rosa Cornejo MD CHEMISTRY ORDERABLE S [facility] [place] [address] * Magnesium (10/30/2023 10:05 PM EDT) Magnesium 0.86 0.69 - 1.07 mmol/L [facility] Blood 10/30/2023 10:0 5 PM EDT 10/30/2023 10:12 PM EDT Narrative Resulting Agency Comment Spec In Lab Rosa Cornejo MD CHEMISTRY ORDERABLE S Performing Organization Address City/[facility]/ZIP Co de Phone Number [facility] [place] [address] * (ABNORMAL) Troponin (10/30/2023 10:05 PM EDT) [...] troponin value can be found in the [facility] Laboratory Test Catalog Troponin - [facility] Laboratory Test Catalog Reference: Fourth [place] Definition of Myocardial Infarction. Journal of the [employer] 2018;72:2596-7390 Blood 10/30/2023 10:0 5 PM EDT 10/30/2023 10:12 PM EDT Narrative Resulting Agency Comment Spec In Lab Rosa Cornejo MD CHEMISTRY ORDERABLE S Performing Organization Address City/[facility]/ZIP Co de Phone Number [facility] [place] [address] * EKG 12 Lead (10/30/2023 8:21 PM EDT) Ventricular rate 49 BPM MUSE SYSTEM Atrial Rate 49 BPM MUSE SYSTEM P-R Interval 230 ms MUSE SYSTEM QRS Duration 96 ms MUSE SYSTEM Q-T Interval 526 ms MUSE SYSTEM QTC Calculated (Bezet) 475 ms MUSE SYSTEM Calculated P Keyser 98 degrees MUSE SYSTEM Calculated R Keyser -48 degrees MUSE SYSTEM Calculated T Keyser -51 degrees MUSE SYSTEM INTERPRETATION Sinus bradycardia [...] 1 g, Intravenous, ONCE, 1 dose, On Aman 11/03/23 at 0900, Administer over 60 Minutes [...] Reason: Transfer to a Procedural area)1548 ([facility] Unhold - Provider: Admin Adt) fentaNYL [...] Reason: Transfer to a Procedural area)1548 ([facility] Unhold - Provider: Admin Adt) midazolam [...] documented as of this encounter Care Teams House Moving Supervisor Relationship Specialty Start Date End Date Rosie Mathews MD [address] [place] [address] PCP - General Family Medicine 11/25/17 11/23/23 documented as of this encounter
--- OUTSIDE RECORDS SUMMARY | 2024-03-05 10:23 | XMS_ITS | Encounter Summary ---
Author Organization Formerly [facility] Address [facility] [place] [address] Care Team Providers Care Polymer Engineer Name Role Phone Rosie Mathews MD Primary Care Provider [phone] Encounter Details Date Type Department Care Team (Late st Contact Info) Description 10/30/2023 External Results Transfer Center [facility] [place] [address] Social History Tobacco Use Types Packs/Day Years Used Date Smoking Tobacco: Former Smokeless Tobacco: Never Alcohol Use Standard Drinks/Week Comments Not Currently 0 (1 standard drink = 0.6 oz pur e alcohol) [facility] Utilities Answer Date Recorded In the past 12 months has e [employer], gas, oil, or water Native threatened to shut off services in your [...] AM EDT Office Visit Cardiology at [address] [address] Izaiah Meyer MD [facility] [place] [address] documented as of this encounter Procedures Procedure [...] on filedocumented in this encounter Care Teams Polymer Engineer Relationship Specialty Start Date End Date Rosie Mathews MD [address] [place] [address] PCP - General Family Medicine 11/25/17 11/23/23 documented as of this encounter
--- OUTSIDE RECORDS SUMMARY | 2024-03-05 10:23 | XMS_ITS | Encounter Summary ---
Author Organization [facility] Address [address] [place] [address] Care Team Providers Care Assembly Machine Operator Name Role Phone Unavailable Primary Care Provider Unavailabl e Encounter Details Date Type Department Care Team (Late st Contact Info) Description 01/10/2008 Before PRISM Converted Visit (Maple) [facility] - Maple conversion [address] [place] [address] Ray Farooq MD [address] [place] [phone] Social History Tobacco Use Types Packs/Day Years Used Date Smoking Tobacco: Never Assessed Sex and Gender Information Value Date Recorded Sex Assigned at Not on file Gender Identity Not on file Sexual Orientation Not on file documented as of this encounter Consult Notes * Ray Farooq MD - 03/21/2009 2913 EDT [facility] - 01/10/2008 Kirsten Bateman MD [facility] [address] [place] [address] Bateman: Chief complaint: Hearing loss. History of present illness: Snigl-aipbs-ibfc-old female with along history of bilateral hearing [...] aspirin, vitamin E, C, B12, B125 complex, [place], EPA fatty acid, coral calcium complex, potassium chloride, Diovan, and hormone essentials. She has drug allergies to cortisone, Percocet, and hydrocodone. Family history is significant for cancer. Social history: The patient is a nonsmoker, nondrinker. She lives in [place]. Review of systems is significant for [...] Tosin Farooq MD - MLD Job ID: [id number] Doc ID: [id number] cc: Kirsten Bateman MD cc: Kirsten Bateman MD documented in this encounter Plan of Treatment Not on file documented as of this encounter Visit Diagnoses Not on filedocumented in this encounter
--- OUTSIDE RECORDS SUMMARY | 2024-03-05 10:23 | XMS_ITS | Referral Summary ---
Author Organization [facility] Address [address] [facility] [place] [address] Care Team Providers Care Stucco Plasterer Name Role Phone Kirsten Bateman MD Primary Care Provider [phone] Allergies Active Allergy Reactions Criticality Noted Date [...] of Treatment Not on file Care Teams Stucco Plasterer Relationship Specialty Start Date End Date Kirsten Bateman MD [address] [place] [address] [facility] - General 01/13/10
--- OUTSIDE RECORDS SUMMARY | 2024-03-05 10:23 | XMS_ITS | Clinical Summary ---
Author Organization [facility] Address [address] [facility] [place] [address] Care Team Providers Care Curtain Stretcher Name Role Phone Kirsten Bateman MD Primary Care Provider [phone] Allergies Active Allergy Reactions Criticality Noted [...] COVID-19 Vaccine (2022- season) 2024 Care Teams Curtain Stretcher Relationship Specialty Start Date End Date Kirsten Bateman MD [address] [place] [phone] PCP - General 01/13/10
--- OUTSIDE RECORDS SUMMARY | 2024-03-05 10:23 | XMS_ITS | Encounter Summary ---
Author Organization Formerly [facility] Address [facility] [place] [address] Care Team Providers Care Rebar Worker Name Role Phone Rosie Mathews MD Primary Care Provider [phone] Reason for Visit * Consultation (Routine) - Closed Specialty Diagnoses / Procedures Referred By Contbruce hunt Referred To Contact Audiology Diagnoses Hearing assessment and treatment options Karson John MD [address] [place] [address] [facility] Audiology [address] [place] [phone] Referral ID Status Reason Start Date Expiration Date V isits Requested Visits Authorized [id number] Closed Consult, Test & Treat Connection Center 11/22/2017 11/22/2018 1 1 Encounter Details Date Type Department Care Team (Latest Contact Info) Description 11/30/2017 3:15 PM EDT Office Visit Audiology at [address] [address] Georgette Onofre AUD [facility] [place] [address] Sensorineural hearing loss, bilateral; [...] first 10-15 years. Ms. Goodrich obtained binaural [facility] in-the-ear hearingaids nine years ago in [place], [place]. She stated she continues to experience [...] tone audiogram. SNR loss is the increased bviuvh-qr-[id number] ratio required by an individual to understand [...] not hesitate to contact this Section at [phone] if there are questions regarding this report or its recommendations. Romeo Becker [place] [id number] Attachment: audiogram CC: MD Karson Loo MD Laurmarco a Catherine Edvinjonatanjosue [facility] [address] [place] [phone] documented in this encounter Plan of Treatment Upcoming Encounters Date Type Department Care Team (Late st Contact Info) Description 03/29/2024 11:20 AM EDT Office Visit Cardiology at [address] [place] [address] Izaiah Meyer MD [facility] [place] [address] documented as of this encounter Procedures Procedure [...] tinnitus documented in this encounter Care Teams Rebar Worker Relationship Specialty Start Date End Date Rosie Mathews MD [address] [place] [address] PCP - General Family Medicine 11/25/17 11/23/23 documented as of this encounter
--- OUTSIDE RECORDS SUMMARY | 2024-03-05 10:23 | XMS_ITS | Encounter Summary ---
Author Organization [facility] Address [address] [place] [address] Care Team Providers Care Physician Practice Market Manager Name Role Phone Kirsten Bateman MD Primary Care Provider [phone] Encounter Details Date Type Department Care Team (Late st Contact Info) Description 01/27/2021 Lab Requisition [facility] Pathology & Laboratory Medicine - [facility] [address] [place] [address] Outr Resulting Lab, Provider Social History Tobacco [...] Outr Resulting Lab MICROBIOLOGY - GENERAL ORDERABLES [facility] [address] [place] [address] * COVID-19 TESTING (01/26/2021 16:45 EDT) COVID-19 rt-PCR Result Negative Negative 01/28/2021 13:31 EDT [facility] Comment: This test [...] developed and its performance characteristics determined by [facility]. It has not been cleared or [...] testing. This test is based on the [facility] COVID-19 Emergency Use Authorization (EUA) assay, with minor modification as defined by the FDA Performed on the [employer] 7 Pro RT-PCR System. Performing Lab [facility] Lab 01/28/2021 13:31 EDT [facility] Swab 01/26/2021 16:4 5 EDT 01/27/2021 15:46 EDT Provider Outr Resulting Lab MICROBIOLOGY - GENERAL ORDERABLES [facility] [address] [place] [address] documented in this encounter Visit Diagnoses Not on filedocumented in this encounter Care Teams Physician Practice Market Manager Relationship Specialty Start Date End Date Kirsten Bateman MD [address] [place] [address] PCP - General 01/13/10 documented as of this encounter
--- OUTSIDE RECORDS SUMMARY | 2024-03-05 10:23 | XMS_ITS | Encounter Summary ---
Author Organization [facility] Address [address] [place] [address] Care Team Providers Care Glass Toughening Operator Name Role Phone Kirsten Bateman MD Primary Care Provider [phone] Encounter Details Date Type Department Care Team (Late st Contact Info) Description 01/14/2010 Abstract Used for ABSTRACTING Data [phone] Kirsten Bateman MD [address] [place] [address] Social History Tobacco Use Types [...] OIL (FATTY ACID BASE MISC) by [facility].(Non-Drug; Combo Route) route. EPA CYANOCOBALAMIN (VITAMIN B-12 ORAL) Take by mouth. ASCORBIC ACID (VITAMIN C ORAL) Take by mouth. VITAMIN E ACETATE (VITAMIN E ORAL) Take by mouth. ASPIRIN ORAL Take by mouth. AMITRIPTYLINE HCL (AMITRIPTYLINE ORAL) Take by mouth. ATENOLOL ORAL Take by mouth. SIMVASTATIN ORAL Take by mouth. added in this encounter Care Teams Glass Toughening Operator Relationship Specialty Start Date End Date Kirsten Bateman MD [address] [place] [phone] PCP - General 01/13/10 documented as of this encounter
--- OUTSIDE RECORDS SUMMARY | 2024-03-05 10:23 | XMS_ITS | Encounter Summary ---
Author Organization [facility] Address [facility] [place] [address] Care Team Providers Care Clinic Assistant Name Role Phone Rosie Mathews MD Primary Care Provider [phone] Encounter Details Date Type Department Care Team (Late st Contact Info) Description 10/30/2023 [place] [address] Jose Lee MD [facility] [place] [address] Social History Tobacco Use Types Packs/Day Years Used Date Smoking Tobacco: Former Smokeless Tobacco: Never Alcohol Use Standard Drinks/Week Comments Not Currently 0 (1 standard drink = 0.6 oz pur e alcohol) [facility] Utilities Answer Date Recorded In the past 12 months has th e [employer], gas, oil, or water [employer] threatened to shut off services in your [...] AM EDT Office Visit Cardiology at [address] [address] Izaiah Meyer MD [facility] [place] [address] documented as of this encounter Visit Diagnoses Not on filedocumented in this encounter Additional Health Concerns Infection Onset Date Last Indicated Resolved Time Rule Out Respiratory 11/02/2023 11/02/2023 024 12:22 PM EDT Rule Out COVID-19 11/02/2023 11/02/2023 11/02/2023 12:22 PM EDT documented as of this encounter Care Teams Clinic Assistant Relationship Specialty Start Date End Date Rosie Mathews MD [address] [place] [address] PCP - General Family Medicine 11/25/17 11/23/23 documented as of this encounter
--- OUTSIDE RECORDS SUMMARY | 2024-03-05 10:23 | XMS_ITS | Encounter Summary ---
Author Organization [facility] Address [facility] [place] [address] Care Team Providers Care Staff Physician Name Role Phone Rosie Mathews MD Primary Care Provider [phone] Encounter Details Date Type Department Care Team (Late st Contact Info) Description 10/30/2023 [place] [address] Jose Lee MD [facility] [place] [address] Social History Tobacco Use Types Packs/Day Years [...] Date: 10/30/2023 Referring Provider: Bree Patient Location: [facility] HPI: 83 yoF w/ PMHx of [...] in the patient condition. Jose Lee MD Eye Specialist documented in this encounter Plan of Treatment Upcoming Encounters Date Type Department Care Team (Late st Contact Info) Description 03/29/2024 11:20 AM EDT Office Visit Cardiology at [address] [place] [address] Izaiah Meyer MD [facility] [place] [address] documented as of this encounter Visit Diagnoses Not on filedocumented in this encounter Care Teams Staff Physician Relationship Specialty Start Date End Date Rosie Mathews MD [address] [place] [address] PCP - General Family Medicine 11/25/17 11/23/23 documented as of this encounter
--- OUTSIDE RECORDS SUMMARY | 2024-03-05 10:23 | XMS_ITS | Encounter Summary ---
Author Organization Formerly [facility] [place] [address] Care Team Providers Care Radar Engineer Name Role Phone Rosie Mathews MD Primary Care Provider [phone] Reason for Visit * Auth/Cert (Routine) Specialty Diagnoses / Procedures Referred By Contac t Referred To Contact Diagnoses Unstable angina Chest pain NSTEMI Procedures CARDIAC CATHETERIZATION Rosa Dewey MD [facility] [address] [facility] Referral ID Status Reason Start Date Expiration Date Visits Re quested Visits Authorized [id number] 1 1 Encounter Details Date Type Department Care Team (Late st Contact Info) Description 10/30/2023 4:25 PM EDT - 10/30/2023 5:27 PM [place] [address] Rosa Dewey MD [facility] [address] [place], [place] [id number] CARDIAC CATHETERIZATION Social History Tobacco Use Types Packs/Day Years Used Date Smoking Tobacco: Former Smokeless Tobacco: Never Alcohol Use Standard Drinks/Week Comments Not Currently 0 (1 standard drink = 0.6 oz pur e alcohol) [facility] Inpatient Questions Answer Date Recorded Does Anyone [...] and hyperlipidemia who presented to [facility] as a transfer from [facility] as a possible STEMI alert with acute onset chest pain. The patient reports that her symptoms initially began on Tuesday when she was walking to [facility] and experienced bilateral arm heaviness while walking [...] on repeat, her JAMIE resolved. Cardiology at [facility] was consulted for transfer; the patient was loaded with aspirin 324 mg and ticagrelor 180 mg, started on a heparin drip, and given nitroglycerin with improvement in chest pain. Upon arrival to [facility], the patient was taken directly to the Ship Erector. Two lesions were discovered: one in the prox RCA (felt to almost be a ENVIRONMENTAL LAW PROFESSOR but they were able to wire, balloon, [...] low lung volumes. Findings similar to sales planning manager radiograph from CT 10/30/2023. Pending Studies and [...] 10:40 AM Izaiah Meyer MD Cardiology at [place] Arrive at: [facility] [address] [phone] Future Orders Complete By Expires Referral to Cardiac Rehab [[id number] Custom] As directed Process Instructions: If no progress note charted, please enter Clinical details in comments. Scheduling Instructions: Questions: My question or request is: STEMI. Cardiac rehab at [facility]. Referral to Home Health [[id number] Custom] As directed Process Instructions: If no progress note charted, please enter Clinical details in comments. Scheduling Instructions: Comments: Please evaluate Adin Santos for admission to Home Health. [address] [place] [address] [place] [phone] (home) Date of : 1940 Inpatient DOCUMENTATION FOR VNA SERVICES (INCLUDING THOSE PATIENTS WITH MEDICARE COVERAGE REQUIRING HOME VNA SERVICES AND/OR HOSPICE SERVICES) PATIENT'S LOCATION: Adin Santos [address] [facility] [phone] (home) Cell: Telephone Information: Core Blower Operator's Name: self In discussion with the attending physician, it is certified that this patient is under their care and that they, or a Nurse Practitioner, Clinical Nurse specialist or Physician Hand Trucker who is working directly with them, had [...] AGENCY: [facility] [address] [place] [id number] START OF CARE: within 24-48 hours of [...] Rosie Mathews MD [address] / [facility] [address] . All A agencies which cover the [...] MD / Dr. Masood Pierson [address] [place] [address] 11/09/23 1:55 PM arrival for 2:10 PM appointment Interventional Sale Consultant: Izaiah Meyer MD [address] [place] [address] , 11/24/2023 10:40 AM Your Inpatient Medical Team at [facility] Name(s) of your inpatient provider(s): Attending physician: Rosa Hugo MD Resident physicians: Emile Robles MD; Elmer Tamez MD If you have non-emergent questions, prior to your follow-up visit call: Tuesday-Tuesday between the hours of 8AM-5PM please call the Cardiology Clinic [phone] to speak with a nurse. All other hours please call the Hospital Pig Iron Loader [phone] and ask to speak to the regional office coordinator on-call. Your Primary Care Provider Rosie Mathews MD [phone] For questions regarding this document or issues relating to this hospitalization on the Medical Service, please contact your inpatient physician through the [facility] Iron [facility] . Issues afterhours and on weekends will be handled by the Interventional Sale Consultant staff on-call. Associated attestation - Rosa Hugo [...] MD / Dr. Masood Pierson [address] [place] [address] 11/09/23 1:55 PM arrival for 2:10 PM appointment Interventional Sale Consultant: Izaiah Meyer MD [address] [place] [address] , 11/24/2023 10:40 AM Your Inpatient Medical Team at [facility] Name(s) of your inpatient provider(s): Attending physician: Rosa Hugo MD Resident physicians: Emile Robles MD; Elmer Tamez MD If you have non-emergent questions, prior to your follow-up visit call: Tuesday-Tuesday between the hours of 8AM-5PM please call the Cardiology Clinic [phone] to speak with a nurse. All other hours please call the Hospital Pig Iron Loader [phone] and ask to speak to the regional office coordinator on-call. Your Primary Care Provider Rosie Mathews MD [phone] documented in this encounter Medications at Time [...] and hyperlipidemia who presented to [facility] as a transfer from [facility] as [...] and hyperlipidemia who presented to [facility] as a transfer from [facility] as [...] Resident on Cardiology Service Cardiology S1 (Pager [phone]) Note written in conjunction with Claudio Perla [facility] Medical Student, MS3 Associated attestation [...] Nirmala Webb - 11/01/2023 11:25 AM EDT Grievance Coordinator Encounter Note Patient Name: Adin Santos : [id number] MR#: [id number] Admit Date: 10/30/2023 5:11 PM Hospital Day 2 days Narrative: Self initiated visit to patient for Spiritual support in a regular unit rounds. Assessment: Patient is in the bathroom at the time of this visit. Not a good time for Direct Care Supervisor visit. Intervention and Outcome: An attempted [...] and hyperlipidemia who presented to [facility] as a transfer from [facility] as [...] low lung volumes. Findings similar to sales planning manager radiograph from CT 10/30/2023. Scheduled Medications: [MAR [...] and hyperlipidemia who presented to [facility] as a transfer from [facility] as [...] Resident on Cardiology Service Cardiology S1 (Pager [phone]) Note written in conjunction with Claudio Perla [facility] Medical Student, MS3 Associated attestation [...] and hyperlipidemia who presented to [facility] as a transfer from [facility] as a possible STEMI alert with acute onset chest pain. Active Problems: Active Hospital Problems Diagnosis Unstable angina Resolved Hospital Problems No resolved problems to display. 24 hr events: - Cath'd yesterday with lesion in the proximal RCA (initially thought it was ENVIRONMENTAL LAW PROFESSOR but they were ableto wire, balloon and [...] low lung volumes. Findings similar to sales planning manager radiograph from CT 10/30/2023. TTE (10/30): Interpretation [...] and hyperlipidemia who presented to [facility] as a transfer from [facility] as [...] Resident on Cardiology Service Cardiology S1 (Pager [phone]) Note written in conjunction with Claudio Perla [facility] Medical Student, MS3 Associated attestation [...] PCP: Rosie Mathews MD PCP phone number: [phone] Date of Admission: 10/30/2023 ( Hospital Day 0 days ) Attending:Rosa Cornejo MD ID: Adin Santos is a 83 y.o. female PMH significant for hypertension and hyperlipidemia who presented to [facility] as a transfer from [facility] as a possible STEMI alert with acute onset chest pain. The patient reports that her symptoms initially began on Tuesday when she was walking to [facility] and experienced bilateral arm heaviness while walking [...] on repeat, her JAMIE resolved. Cardiology at [facility] was consulted for transfer; the patient was loaded with aspirin 324 mg and ticagrelor 180 mg, started on a heparin drip, and given nitroglycerin with improvement in chest pain. Upon arrival to [facility], the patient was taken directly to the Ship Erector. 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 Findings similar to sales planning manager radiograph from CT 10/30/2023. Assessment & Plan: Adin Santos is a 83 y.o. female PMH significant for hypertension and hyperlipidemia who presented to [facility] as a transfer from [facility] as [...] with HTN HLD transferred with chest from [facility]. BP 217/68, HR 71 [...] information for follow-up Home Health & Hospice, [place] [address] TANESHA BOYCE confirmed with Brittany CARVAJAL that [...] in the room. Electrolytes replaced, see MAR. medical lab scientist sites remained C/D/I with baseline ecchymosis unchanged. [...] in an outpatient cardiac rehabilitation program at [facility] was discussed. Patient agrees [...] EDT Office of Care Management Initial Assessment Burce Waller RN reviewed record and discussed patient with Care Team. Source of Information: Team, bedside nurse, medical record, and Patient, Chart Review Introduced self/reviewed role; services accepted. Admitted From: Transfer from another hospital Location: [facility] Reason for Hospitalization: chest pain Covid Vaccination Status: 1st, 2nd & booster Past medical History: No past medical history on file. Hospitalizations Within the Past 30 Days: no previous admission in last 30 days Current Decision-Making Capacity: Self If AD's have not been completed the following surrogate would be surrogate decision maker per [place] surrogate decision making law. (Only good for 180 days) Any patient receiving care in [place] must abide by [place] law. The hierarchy for surrogate decision making [...] (i) The agent with financial power of planner internship or a conservator appointed in accordance with [...] has the electric, gas, oil, or water [employer] threatened to shut off services in [...] toilet seat Home Address confirmed as: [address] [facility] [address] Social & Family Supports: All names listed below confirmed with patient as current and correct Extended Emergency Contact Information Primary Emergency Contact: Iris Downing Address: [address] [place], [place] [id number] [place] [address] Mobile Relation: Child Secondary Emergency Contact: Karen More Address: [address] [facility] Mobile Relation: Child Current Care Provided by: self Provides Primary Care For: no one Caregiver if needed: child(emmanuel), adult Quality of Family relationships: involved, supportive Community Resources being provided currently: other (see comments) (receives [facility] services at home (1xweekly)) [...] Insurance: N/A Prescription Coverage: Yes Preferred [facility]acy: [facility] [place], [place] - [address] [place] [address] [place] [address] [place] Status: Patient is a : No Primary Care Provider listed: Masood Pierson MD [phone] Patient/Caregiver Goals of Treatment: home when MR Potential Needs for Transition of Care: home health care Agency Referrals: Not Applicable I have met with the patient to: discuss discharge planning needs. provide the [facility], Office of Care Management letter from the News Assistant pertaining to rehab referrals. provide a letter describing our affiliations within the [facility] and educate about their right to choose where referrals are sent. provide a list of Home Health Agencies / Durable Medical Equipment vendors which serve their preferred geographic area. provided patient with CMS Star Quality Rating handout. They have requested referrals to: [facility] [address] [place] [address] Note routed to a Salvager who will communicate referrals to facilities and [...] results. PO hydralazine added for BP control. medical lab scientist sites remain C/D/I, ecchymosis unchanged th roughout [...] AM EDT Office Visit Cardiology at [address] [address] Izaiah Meyer MD [facility] [place] [address] Scheduled Referrals Name Type Priority Associated Diagnoses [...] [facility] Lymph % 15.2 % [facility] Lymphocytes Abs 1.3 0.9 - 3.2 x10(3)/mc L [facility] Monocyte % 16.9 % [facility] Monocyte Abs 1.4(H) 0.3 - 0.9 x10(3)/mc L [facility] Eos % 3.7 % [facility] Eosinophils Abs 0.3 0.0 - 0.4 x10(3)/mc L [facility] Basophil % 0.5 % [facility] Baso Absolute 0.0 0.0 [...] HEMATOLOGY ORDERABLE S [facility] [place] [address] * (ABNORMAL) Hemogram (11/03/2023 3:46 AM EDT) White Blood Cell 8.3 4.0 - 9.5 x10(3)/[facility] Red Blood Cell 3.77(L) 4.00 - 5.21 x10(6)/[facility] Hemoglobin 13.1 11.7 - 15.5 [...] Platelet 181 145 - 357 x10(3)/ L [facility] RDW Standard Deviation 54.7(H) 37.0 - 46.0 [facility] RDW coefficient of variation 14.6(H) 11.5 - 14.1 % [facility] Mean Platelet Volume 11.2 7.6 - 12.9 [facility] NRBC% auto 0.0 % [facility] NRBC Absolute 0.000 0.000 - 0.000 x10(3)/ L [facility] Blood 11/03/2023 3:46 AM EDT 11/03/2023 4:11 AM EDT Narrative Resulting Agency Comment Spec In Lab Qamar Gallardo MD HEMATOLOGY ORDERABLE S Performing Organization Address City/[facility]/ZIP Co de Phone Number [facility] [place] [address] * Phosphorus (11/03/2023 3:46 AM EDT) Phosphorus 3.2 2.5 - 4.5 mg/dL [facility] Comment:result rechecked-KS Blood 11/03/2023 3:46 AM EDT 11/03/2023 4:11 AM EDT Narrative Resulting Agency Comment Spec In Lab Rosa Cornejo MD CHEMISTRY ORDERABLE S Performing Organization Address [facility]/ZIP Co de Phone Number [facility] [place] [address] * Magnesium (11/03/2023 3:46 AM EDT) Magnesium 0.90 0.69 - 1.07 mmol/L [facility] Blood 11/03/2023 3:46 AM EDT 11/03/2023 4:11 AM EDT Narrative Resulting Agency Comment Spec In Lab Rosa Cornejo MD CHEMISTRY ORDERABLE S Performing Organization Address City/[facility]/ZIP Co de Phone Number [facility] [place] [address] * (ABNORMAL) Basic Metabolic Panel (non-fasting) (11/03/2023 [...] CHEMISTRY ORDERABLE S [facility] [place] [address] * EKG 12 Lead (11/02/2023 12:44 PM EDT) Ventricular rate 83 BPM MUSE SYSTEM Atrial Rate 83 BPM MUSE SYSTEM P-R Interval 216 ms MUSE SYSTEM QRS Duration 90 ms MUSE SYSTEM Q-T Interval 384 ms MUSE SYSTEM QTC Calculated (Bezet) 451 ms MUSE SYSTEM Calculated P [place] 92 degrees MUSE SYSTEM Calculated R [place] -51 degrees MUSE SYSTEM Calculated T [place] -33 degrees MUSE SYSTEM INTERPRETATION Sinus rhythm [...] In Lab Elmer Tamez MD URINE ORDERABLES [facility] [place] [address] * (ABNORMAL) Urinalysis with reflex Culture (11/02/2023 [...] HOSPITAL LABOR[facility]ORY Leukocytes, Urine Dipstick Small(A) Negative [facility] Appearance, Urine Dipstick Cloudy(A) Clear [facility] Specific [place] Urine Automated >=1.030(A) 1.005 - 1.030 [facility] Color, Urine Dipstick Dark Yellow Yellow [facility] Reflex to Culture Yes [facility] Clean Catch Urine 11/02/2023 11:40 AM EDT 11/02/2023 12:04 PM EDT Narrative Resulting Agency Comment Spec In Lab Rosa Hugo MD URINE ORDERABLES [facility] [place] [address] * Respiratory Panel PCR (11/02/2023 10:15 AM EDT) Respiratory Panel Source MEDICAL OR SURGICAL INSTRUMENT MAKER Swab [facility] Respiratory Panel PCR Negative Negative [facility] Comment: Respiratory Panels are performed on the [employer]Book[employer], using multiplexed PCR nucleic acid detection. ??Negative [...] performed using the BioFire Respiratory Panel 2.1 (ClarityRay) as authorized by the FDA issued Emergency Use Authorization (EUA). This panel also tests for multiple other viral and bacterial pathogens. This assay is intended for In-vitro Diagnostic (IVD) use with nasopharyngeal swabs in viral transport media. The assay is performed based on the instructions for use and additional guidance provided by the FDA. Testing is performed in laboratories within the [facility], each of which is certified under [...] fact sheets at the following FDA website: https://www.fda.gov/medical-devices/ykebyvmxwxu-ppcjpbx-8288-nsbhd-05-aostrnnqj- use-a zahpqlmysnldq-jufdavj-ppuxlsh/ucjyz-clrqqrjfhza-fjpr Human Metapneumovirus Not Detected Not Detected ST [...] GEN ERAL ORDERABLES [facility] [place] [address] * XR Chest One View (11/02/2023 2:51 AM EDT) WORKSTATION ID [id number] DH RAD Anatomical Region Laterality Modality Chest [...] who have questions please contact the health healthcare administration intern that requested your imaging first. ? Electronically signed by: Omaira Tran MD, [facility] ([phone]), at 11/02/2023 4:56 AM Narrative 11/02/2023 4:56 [...] patients who have questions please contactthe health healthcare administration intern that requested your imaging first. Electronically signed by: Omaira Tran MD, [facility]([phone]), at 11/02/2023 4:56 AM Rosa Hugo MD IMG DX ORDERABLES * (ABNORMAL) Differential, Automated (11/02/2023 12:35 AM EDT) Neutrophil % 76.5 % [facility] Neutrophil Absolute 7.69(H) 1.70 - 6.10 x10(3)/mc L [facility] Lymph % 8.3 % [facility] Lymphocytes Abs 0.8(L) 0.9 - 3.2 x10(3)/mc L [facility] Monocyte % 12.9 % [facility] Monocyte Abs 1.3(H) 0.3 - 0.9 x10(3)/mc L [facility] Eos % 1.4 % [facility] Eosinophils Abs 0.1 0.0 - 0.4 x10(3)/mc L [facility] Basophil % 0.4 % [facility] Baso Absolute 0.0 0.0 [...] Absolute 0.05(H) 0.00 - 0.04 x10(3)/ L [facility] Blood 11/02/2023 12:3 5 AM EDT 11/02/2023 12:43 AM EDT Narrative Resulting Agency Comment Spec In Lab Qamar Gallardo MD HEMATOLOGY ORDERABLE S [facility] [place] [address] * (ABNORMAL) Hemogram (11/02/2023 12:35 AM EDT) [...] Platelet Volume 11.4 7.6 - 12.[address] [facility] NRBC% auto 0.0 % [facility] NRBC Absolute 0.000 0.000 - 0.000 x10(3)/mc L [facility] Blood 11/02/2023 12:3 5 AM EDT 11/02/2023 12:43 AM EDT Narrative Resulting Agency Comment Spec In Lab Qamar Gallardo MD HEMATOLOGY ORDERABLE S [facility] [place] [address] * (ABNORMAL) Phosphorus (11/02/2023 12:35 AM EDT) Phosphorus 1.6(L) 2.5 - 4.5 mg/dL [facility] Blood 11/02/2023 12:3 5 AM EDT 11/02/2023 12:43 AM EDT Narrative Resulting Agency Comment Spec In Lab Rosa Cornejo MD CHEMISTRY ORDERABLE S Performing Organization Address [facility]/ZIP Co de Phone Number [facility] [place] [address] * Magnesium (11/02/2023 12:35 AM EDT) Magnesium 0.87 0.69 - 1.07 mmol/L [facility] Blood 11/02/2023 12:3 5 AM EDT 11/02/2023 12:43 AM EDT Narrative Resulting Agency Comment Spec In Lab Rosa Cornejo MD CHEMISTRY ORDERABLE S Performing Organization Address City/[facility]/ZIP Co de Phone Number [facility] [place] [address] * Basic Metabolic Panel (non-fasting) (11/02/2023 12:35 [...] CHEMISTRY ORDERABLE S [facility] [place] [address] * Blood culture (11/02/2023 12:35 AM EDT) Blood Culture No growth at [address] [facility] Blood 11/02/2023 12:3 5 AM EDT 11/02/2023 1:55 AM EDT Comment:#2 site ukn Narrative Resulting Agency Comment Spec In Lab Rosa Hugo MD MICROBIOLOGY - BLO OD ORDERABLES Performing Organization Address [facility] Co de Phone Number [facility] [place] [address] * Blood culture (11/02/2023 12:15 AM EDT) Blood Culture No growth at [address] [facility] Blood 11/02/2023 12:1 5 AM EDT 11/02/2023 1:54 AM EDT Comment:#1site unk Narrative Resulting Agency Comment Spec In Lab Rosa Hugo MD MICROBIOLOGY - BLO OD ORDERABLES Performing Organization Address [facility] Co de Phone Number [facility] [place] [address] * EKG 12 Lead (11/01/2023 10:10 PM EDT) Ventricular rate 139 BPM MUSE SYSTEM Atrial Rate 139 BPM MUSE SYSTEM P-R Interval 168 ms MUSE SYSTEM QRS Duration 84 ms MUSE SYSTEM Q-T Interval 286 ms MUSE SYSTEM QTC Calculated (Bezet) 435 ms MUSE SYSTEM Calculated R [place] -59 degrees MUSE SYSTEM Calculated T [place] -27 degrees MUSE SYSTEM INTERPRETATION Mid-RP tachycardia, consider sinus tachycardia or SVT Left axis deviation Moderate voltage criteria for LVH, may be normal variant ( R in aVL , [place] product ) Inferior infarct (cited on or before 01-NOV-2023) Anterolateral infarct (cited on or before 01-NOV-2023) Abnormal ECG When compared with ECG of 01-NOV-2023 15:22, Vent. rate Although rate has increased Serial changes of Anterior infarct Present I personally reviewed the tracing and edited the fellows interpretation Confirmed by fellow MD Bowen Ashley ([id number]) on 11/04/2023 7:57:50 AM Confirmed by MD Carrillo Danette ([id number]) on 11/04/2023 4:32:03 PM MUSE SYSTEM 11/01/2023 10:1 0 PM EDT 11/04/2023 4:32 PM EDT Rosa Cornejo MD ECG ORDERABLES MUSE SYSTEM * (ABNORMAL) Hemogram (11/01/2023 10:06 PM EDT) White Blood Cell 10.4(H) 4.0 - 9.5 x10(3)/[facility] Red Blood Cell 4.11 4.00 - 5.21 x10(6)/[facility] Hemoglobin 14.0 11.7 - 15.5 [...] Platelet 197 145 - 357 x10(3)/ L [facility] RDW Standard Deviation 54.0(H) 37.0 - 46.[address] [facility] RDW coefficient of variation 14.6(H) 11.5 - 14.1 % [facility] Mean Platelet Volume 11.2 7.6 - 12.[address] [facility] NRBC% auto 0.0 % [facility] NRBC Absolute 0.000 0.000 - 0.000 x10(3)/ L [facility] Blood 11/01/2023 10:0 6 PM EDT 11/01/2023 10:22 PM EDT Narrative Resulting Agency Comment Spec In Lab Rosa Hugo MD HEMATOLOGY ORDERAB LES Performing Organization Address City/[facility]/ZIP Co de Phone Number [facility] [place] [address] * POCT Glucose (11/01/2023 5:59 PM EDT) [facility] Signature Glucose, POC 104 65 - 199 mg/dL [facility] Comment: Supplemental ranges: <140 mg/dL before meals <180 mg/dL all other times of the day Blood 11/01/2023 5:59 PM EDT 11/01/2023 5:59 PM EDT Rosa Hugo MD POINT OF CARE TEST ORDERABLES Performing Organization Address [facility] Co de Phone Number [facility] [place] [address] * POCT Glucose (11/01/2023 5:35 PM EDT) [facility] Glucose, POC 85 65 - 199 mg/dL [facility] Comment: Supplemental ranges: <140 mg/dL before meals <180 mg/dL all other times of the day Blood 11/01/2023 5:35 PM EDT 11/01/2023 5:35 PM EDT Rosa Hugo MD POINT OF CARE TEST ORDERABLES Performing Organization Address City/[facility] Co de Phone Number [facility] [place] [address] * EKG 12 Lead (11/01/2023 3:22 PM EDT) Ventricular rate 59 BPM MUSE SYSTEM Atrial Rate 59 BPM MUSE SYSTEM P-R Interval 220 ms MUSE SYSTEM QRS Duration 94 ms MUSE SYSTEM Q-T Interval 428 ms MUSE SYSTEM QTC Calculated (Bezet) 423 ms MUSE SYSTEM Calculated P [place] 76 degrees MUSE SYSTEM Calculated R [place] -50 degrees MUSE SYSTEM Calculated T [place] -59 degrees MUSE SYSTEM INTERPRETATION Sinus bradycardia [...] Modality Other Narrative 11/02/2023 4:57 PM EDT ?[facility] ? Cardiac Catheterization/Intervention Report ? Patient Name: Adin Santos ? Procedure Date: 11/01/2023 ? A #: [id number] ? Primary Physician: Rosa Dewey I ? Case #: [id number] ? File Name: [id number] ? Catheterization Order Number: [id number] ? [facility] ? Final Report [place], [place] ? Patient Name: ? Adin M. Goguen ?ID#: ?[id number] ? : ?1940 ? Procedure Date: ? [...] ??A premounted ? 3.50 x 15 mm [place] (RADHA) was deployed with a maximum ? [...] A premounted 3.50 x 15 mm [place] (RADHA) was deployed ? with a maximum [...] ?modification of this regimen. Consult [facility] for ?questions. ?The 1 year [...] Procedure Note Rosa Dewey MD - 12/12/2023 [facility] Cardiac Catheterization/Intervention Report Patient Name: Adin Santos Procedure Date: 11/01/2023 A #: [id number] Primary Physician: Rosa Dewey I Case #: [id number] File Name: [id number] Catheterization Order Number: [id number] [facility] FinalReport [place], [place] Patient Name: Adin Santos ID#:[id number] :1940 Procedure Date: November 01, 2023 Case [...] was designated as ASA Class III. [facility]: Vulnerable. Diagnostic [...] 14 atmospheres. Apremounted 3.50 x 15 mm [place] (RADHA) was deployed with amaximum inflation pressure [...] The lesion was predilated with a 3.00mm [id number] MM balloon with a maximum inflation pressure of 14atmospheres. A premounted 3.50 x 15 mm [place] (RADHA) wasdeployed with a maximum inflation pressure [...] modification of this regimen. Consult [facility] [place]iology[facility] questions. The 1 year bleeding [...] * POCT Glucose (11/01/2023 7:06 AM EDT) [facility] Glucose, POC 93 65 - 199 mg/dL [facility] Comment: Supplemental ranges: <140 mg/dL before meals <180 mg/dL all other times of the day Blood 11/01/2023 7:06 AM EDT 11/01/2023 7:06 AM EDT Jean Laboy MD POINT OF CARE TEST O RDERABLES [facility] [place] [address] * (ABNORMAL) Differential, Automated (11/01/2023 3:09 AM EDT) Pathologist [facility] Neutrophil % 63.9 % [facility] Neutrophil Absolute 5.54 1.70 - 6.10 x10(3)/mc L [facility] Lymph % 20.0 % [facility] Lymphocytes Abs 1.7 0.9 - 3.2 x10(3)/mc L [facility] Monocyte % 11.9 % [facility] Monocyte Abs 1.0(H) 0.3 - 0.9 x10(3)/mc L [facility] Eos % 3.2 % [facility] Eosinophils Abs 0.3 0.0 - 0.4 x10(3)/ L [facility] Basophil % 0.5 % [facility] Baso Absolute 0.0 0.0 [...] City/State/[facility] Co de Phone Number [facility] [place] [address] * (ABNORMAL) Hemogram (11/01/2023 3:09 AM EDT) [...] Platelet 184 145 - 357 x10(3)/mc L [facility] RDW Standard Deviation 53.5(H) 37.0 - 46.[address] [facility] RDW coefficient of variation 14.6(H) 11.5 - 14.1 % [facility] Mean Platelet Volume 11.3 7.6 - 12.[address] [facility] NRBC% auto 0.0 % [facility] NRBC Absolute 0.000 0.000 - 0.000 x10(3)/mc L [facility] Blood 11/01/2023 3:09 AM EDT 11/01/2023 3:29 AM EDT Narrative Resulting Agency Comment Spec In Lab Qamar Gallardo MD HEMATOLOGY ORDERABLE S Performing Organization Address City/[facility]/ZIP Co de Phone Number [facility] [place] [address] * Phosphorus (11/01/2023 3:09 AM EDT) Phosphorus 2.5 2.5 - 4.5 mg/dL [facility] Blood 11/01/2023 3:09 AM EDT 11/01/2023 3:29 AM EDT Narrative Resulting Agency Comment Spec In Lab Rosa Cornejo MD CHEMISTRY ORDERABLE S Performing Organization Address City/[facility]/ZIP Co de Phone Number [facility] [place] [address] * Magnesium (11/01/2023 3:09 AM EDT) Magnesium 0.82 0.69 - 1.07 mmol/L [facility] Blood 11/01/2023 3:09 AM EDT 11/01/2023 3:29 AM EDT Narrative Resulting Agency Comment Spec In Lab Rosa Cornejo MD CHEMISTRY ORDERABLE S [facility] [place] [address] * (ABNORMAL) Basic Metabolic Panel (non-fasting) (11/01/2023 [...] CHEMISTRY ORDERABLE S [facility] [place] [address] * (ABNORMAL) Troponin (10/31/2023 2:46 PM EDT) [...] - [facility] Test Catalog Reference: [place] Definition of Myocardial Infarction. Journal of the [place] [employer] 2018;72:2149-7825 Blood 10/31/2023 2:46 PM EDT 10/31/2023 2:55 PM EDT Narrative Resulting Agency Comment Spec In Lab Jean Laboy MD CHEMISTRY ORDERABLES Performing Organization Address [facility] Co de Phone Number [facility] [place] [address] * EKG 12 Lead (10/31/2023 1:07 PM EDT) Ventricular rate 54 BPM MUSE SYSTEM Atrial Rate 54 BPM MUSE SYSTEM P-R Interval 218 ms MUSE SYSTEM QRS Duration 92 ms MUSE SYSTEM Q-T Interval 540 ms MUSE SYSTEM QTC Calculated (Bezet) 512 ms MUSE SYSTEM Calculated P [place] 85 degrees MUSE SYSTEM Calculated R [place] -44 degrees MUSE SYSTEM Calculated T [place] -69 degrees MUSE SYSTEM INTERPRETATION Sinus bradycardia [...] ECG ORDERABLES Performing Organization Address [facility] Co de Phone Number MUSE SYSTEM * (ABNORMAL) Troponin (10/31/2023 11:37 AM EDT) Pathologist [facility] Troponin-T, High Sensitivity 580(H) <=14 ng/L ST [...] - [facility] Test Catalog Reference: [place] Definition of Myocardial Infarction. Journal of the [employer] 2018;72:4541-4569 Blood 10/31/2023 11:3 7 AM EDT 10/31/2023 11:50 AM EDT Narrative Resulting Agency Comment Spec In Lab Rosa Cornejo MD CHEMISTRY ORDERABLE S [facility] [place] [address] * ECHO COMPLETE (10/31/2023 8:52 AM EDT) Anatomical Region Laterality Modality Cardiac Other 10/31/2023 7:57 AM EDT Narrative 10/31/2023 9:45 [place] [address] [place] [address] ? Echocardiogram Report Name: ADIN SANTOS ? Study Date: 10/31/2023 07:57 AMBP: 106/76 mmHg ? Patient Location: [facility] 0481 A : 1940 ? Height: 163 cm ? Account: [id number] Age: 83 yrs ? Weight: 76 kg Gender: Female ?BSA: 1.8 m2 Ordering Physician: ROSA DEWEY Referring Physician: OMAIRA GIRON Performed By: HAFSA Carmichael Reason For Study: STEMI Interpreting Fellow: Raymond Warren. Exam Location: [facility]. Interpretation Summary -The left ventricle is [...] is no prior echocardiogram for comparison. Procedure Complete-40820. Satisfactory quality. There is sinus bradycardia. Left [...] Wang MD - 10/31/2023 [address] [place] [id number] Echocardiogram Report Name: TREY SANTOSMarco A Catherine Study Date: 407:57 AMBP: 106/76 mmHg Patient Location: [address] : 1940 Height: 163 cm Account: [id number] Age: 83 yrs Weight: 76 kg Gender: Female BSA: 1.8 m2 Ordering Physician: ROSA DEWEY Referring Physician: OMAIRA GIRON Performed By: HAFSA Carmichael Reason For Study: STEMI Interpreting Fellow: Raymond Warren. Exam Location: [facility]. Interpretation Summary -The left ventricle is [...] is no prior echocardiogram for comparison. Procedure Complete-03662. Satisfactory quality. There is sinus bradycardia. Left [...] - [facility] Test Catalog Reference: [place] Definition of Myocardial Infarction. Journal of the [employer] 2018;72:4181-3531 Blood 10/31/2023 8:51 AM EDT 10/31/2023 9:12 AM EDT Narrative Resulting Agency Comment Spec In Lab Rosa Cornejo MD CHEMISTRY ORDERABLE S Performing Organization Address City/State/[facility] Co de Phone Number [facility] [place] [address] * CARDIAC CATHETERIZATION (10/31/2023 8:10 AM EDT) Anatomical Region Laterality Modality Other Narrative 11/07/2023 9:42 AM EDT ?[facility] ? Cardiac Catheterization/Intervention Report ? Patient Name: Adin Santos M. ? Procedure Date: 10/30/2023 ? A #: [id number] ? Primary Physician: Rosa Dewey I ? Case #: [id number] ? File Name: [id number] ? Catheterization Order Number: [id number] ? [facility] ? Final Report [place], [place] ? Patient Name: ? Adin M. Goguen ?ID#: ?[id number] ? : ?1940 ? Procedure Date: ? October 30, 2023 ? Case #: ? [id number] ? Room: ? 5 ? Case Physician: [...] A premounted 4.00 x 38 mm [place] (RADHA) was deployed ? with a maximum [...] ?modification of this regimen. Consult [facility] for ?questions. ? Conclusions: ?* [...] Procedure Note Rosa Dewey MD - 12/05/2023 [facility] Cardiac Catheterization/Intervention Report Patient Name: Adin Santos Procedure Date: 10/30/2023 A #: [id number] Primary Physician: Rosa Dewey I Case #: [id number] File Name: [id number] Catheterization Order Number: [id number] [facility] FinalReport [place], [place] Patient Name: Adin Santos ID#:[id number] :1940 Procedure Date: October 30, 2023 Case [...] was designated as ASA Class III. The [facility] clinical frailtyscale is 5: Mildly Frail. [...] 16atmospheres. A premounted 4.00 x 38 mm [place] (RADHA) wasdeployed with a maximum inflation pressure [...] modification of this regimen. Consult [facility] [place]iologyfor questions. Conclusions: * Two vessel [...] (ABNORMAL) Troponin (10/31/2023 4:21 AM EDT) [facility] Troponin-T, High Sensitivity 457(H) <=14 ng/L ST [...] - [facility] Test Catalog Reference: [place] Definition of Myocardial Infarction. Journal of the [place] [employer] 2018;72:7403-1081 Blood 10/31/2023 4:21 AM EDT 10/31/2023 4:30 AM EDT Narrative Resulting Agency Comment Spec In Lab Rosa Cornejo MD CHEMISTRY ORDERABLE S Performing Organization Address City/State/[facility] Co de Phone Number [facility] [place] [address] * (ABNORMAL) Differential, Automated (10/31/2023 3:05 AM EDT) Neutrophil % 71.7 % [facility] Neutrophil Absolute 8.21(H) 1.70 - 6.10 x10(3)/mc L [facility] Lymph % 16.9 % [facility] Lymphocytes Abs 1.9 0.9 - 3.2 x10(3)/mc L [facility] Monocyte % 9.4 % [facility] Monocyte Abs 1.1(H) 0.3 - 0.9 x10(3)/mc L [facility] Eos % 1.3 % [facility] Eosinophils Abs 0.2 0.0 - 0.4 x10(3)/mc L [facility] Basophil % 0.4 % [facility] Baso Absolute 0.0 0.0 [...] City/State/[facility] Co de Phone Number [facility] [place] [address] * (ABNORMAL) Hemogram (10/31/2023 3:05 AM EDT) White Blood Cell 11.5(H) 4.0 - 9.5 x10(3)/ L [facility] Red Blood Cell 3.75(L) 4.00 - 5.21 x10(6)/ L [facility] Hemoglobin 12.6 11.7 - 15.5 [...] Standard Deviation 53.4(H) 37.0 - 46.[address] [facility] RDW coefficient of variation 14.6(H) 11.5 - 14.1 % [facility] Mean Platelet Volume 11.1 7.6 - 12.[address] [facility] NRBC% auto 0.0 % [facility] NRBC Absolute 0.000 0.000 - 0.000 x10(3)/mc L [facility] Blood 10/31/2023 3:05 AM EDT 10/31/2023 3:13 AM EDT Narrative Resulting Agency Comment Spec In Lab Qamar Gallardo MD HEMATOLOGY ORDERABLE S Performing Organization Address [facility] Co de Phone Number [facility] [place] [address] * (ABNORMAL) APTT (10/31/2023 3:05 AM EDT) [...] ORDERABL ES Performing Organization Address [facility] Co de Phone Number [facility] [place] [address] * (ABNORMAL) Prothrombin Time (10/31/2023 3:05 AM [...] Lab Rosa Cornejo MD HEMATOLOGY ORDERABL ES [facility] [place] [address] * (ABNORMAL) Differential, Automated (10/31/2023 1:37 AM EDT) Neutrophil % 71.1 % [facility] Neutrophil Absolute 7.53(H) 1.70 - 6.10 x10(3)/mc L [facility] Lymph % 18.0 % [facility] Lymphocytes Abs 1.9 0.9 - 3.2 x10(3)/mc L [facility] Monocyte % 8.7 % [facility] Monocyte Abs 0.9 0.3 - 0.9 x10(3)/mc L [facility] Eos % 1.6 % [facility] Eosinophils Abs 0.2 0.0 - 0.4 x10(3)/mc L [facility] Basophil % 0.4 % [facility] Baso Absolute 0.0 0.0 [...] HEMATOLOGY ORDERABLE S [facility] [place] [address] * (ABNORMAL) Hemogram (10/31/2023 1:37 AM EDT) [...] Platelet 204 145 - 357 x10(3)/mc L [facility] RDW Standard Deviation 54.3(H) 37.0 - 46.[address] [facility] RDW coefficient of variation 14.6(H) 11.5 - 14.1 % [facility] Mean Platelet Volume 11.1 7.6 - 12.[address] [facility] NRBC% auto 0.0 % [facility] NRBC Absolute 0.000 0.000 - 0.000 x10(3)/mc L [facility] Blood 10/31/2023 1:37 AM EDT 10/31/2023 1:46 AM EDT Narrative Resulting Agency Comment Spec In Lab Qamar Gallardo MD HEMATOLOGY ORDERABLE S [facility] [place] [address] * Phosphorus (10/31/2023 1:37 AM EDT) [facility] Phosphorus 3.2 2.5 - 4.5 mg/dL [facility] Blood 10/31/2023 1:37 AM EDT 10/31/2023 1:46 AM EDT Narrative Resulting Agency Comment Spec In Lab Rosa Cornejo MD CHEMISTRY ORDERABLE S Performing Organization Address City/[facility]/ZIP Co de Phone Number [facility] [place] [address] * Magnesium (10/31/2023 1:37 AM EDT) [facility] Magnesium 0.83 0.69 - 1.07 mmol/L [facility] Blood 10/31/2023 1:37 AM EDT 10/31/2023 1:46 AM EDT Narrative Resulting Agency Comment Spec In Lab Rosa Cornejo MD CHEMISTRY ORDERABLE S Performing Organization Address City/[facility]/ZIP Co de Phone Number [facility] [place] [address] * Basic Metabolic Panel (non-fasting) (10/31/2023 1:37 AM EDT) [facility] Glucose 114 65 - 199 mg/dL [...] CHEMISTRY ORDERABLE S [facility] [place] [address] * (ABNORMAL) Troponin (10/31/2023 1:37 AM EDT) [...] - [facility] Test Catalog Reference: [place] Definition of Myocardial Infarction. Journal of the [employer] 2018;72:2565-5732 Blood 10/31/2023 1:37 AM EDT 10/31/2023 1:46 AM EDT Narrative Resulting Agency Comment Spec In Lab Rosa Cornejo MD CHEMISTRY ORDERABLE S Performing Organization Address City/State/[facility] [place] [address] * EKG 12 Lead (10/31/2023 1:20 AM EDT) Ventricular rate 52 BPM MUSE SYSTEM Atrial Rate 52 BPM MUSE SYSTEM P-R Interval 224 ms MUSE SYSTEM QRS Duration 108 ms MUSE SYSTEM Q-T Interval 544 ms MUSE SYSTEM QTC Calculated (Bezet) 505 ms MUSE SYSTEM Calculated P [place] 90 degrees MUSE SYSTEM Calculated R [place] -57 degrees MUSE SYSTEM Calculated T [place] -63 degrees MUSE SYSTEM INTERPRETATION Sinus bradycardia with 1st degree A-V block Pulmonary disease pattern Left anterior fascicular block Moderate voltage criteria for LVH, may be normal variant ( R in aVL , [place] product ) T wave abnormality, consider inferior ischemia T wave abnormality, consider anterolateral ischemia Prolonged QT Abnormal ECG When compared with ECG of 30-OCT-2023 22:40, No significant change was found Confirmed by Butch Soto MD ([id number]) on 11/01/2023 8:58:03 PM MUSE SYSTEM 10/31/2023 1:20 AM EDT 11/01/2023 8:58 PM EDT Rosa Cornejo MD ECG ORDERABLES Performing Organization Address [facility] de Phone Number MUSE SYSTEM * EKG 12 Lead (10/30/2023 10:40 PM EDT) Ventricular rate 55 BPM MUSE SYSTEM Atrial Rate 55 BPM MUSE SYSTEM P-R Interval 232 ms MUSE SYSTEM QRS Duration 102 ms MUSE SYSTEM Q-T Interval 520 ms MUSE SYSTEM QTC Calculated (Bezet) 497 ms MUSE SYSTEM Calculated P [place] 75 degrees MUSE SYSTEM Calculated R [place] -53 degrees MUSE SYSTEM Calculated T [place] -57 degrees MUSE SYSTEM INTERPRETATION Sinus bradycardia with 1st degree A-V block Left anterior fascicular block Moderate voltage criteria for LVH, may be normal variant ( R in aVL , [place] product ) T wave abnormality, consider inferior [...] ECG ORDERABLES Performing Organization Address [facility] Phone Number MUSE SYSTEM * XR Chest One View (10/30/2023 10:10 PM EDT) WORKSTATION ID [id number] RAD Anatomical Region Laterality Modality Chest N/A [...] low lung volumes. Findings similar to sales planning manager radiograph from CT 10/30/2023. Thank you for letting us participate in the care of this patient. ??If you are a health care provider and have any questions regarding this report, please contact the number below. ??For patients who have questions please contact the health healthcare administration intern that requested your imaging first. ? Electronically signed by: Wilson Mccartney MD, [facility] ([phone]), at 10/30/2023 10:32 PM Narrative 10/30/2023 10:32 [...] low lung volumes. Findings similar to sales planning manager radiograph from CT 10/30/2023. Thank you for letting us participate in the care of this patient. If youare a health care provider and have any questions regarding this report,please contact the number below. For patients who have questions please contactthe health healthcare administration intern that requested your imaging first. Rosa Cornejo MD IMG DX ORDERABLES * Green Tube HOLD (10/30/2023 10:05 PM EDT) [facility] Green Hold Sample in lab. [facility] Blood Venous Draw / Unknown 10/30/2023 10:05 PM EDT 10/30/2023 10:13 PM EDT Qamar Gallardo MD CHEMISTRY ORDERABLES [facility] [place] [address] * (ABNORMAL) Differential, Automated (10/30/2023 10:05 PM EDT) [facility] Neutrophil % 76.6 % [facility] Neutrophil Absolute 6.94(H) 1.70 - 6.10 x10(3)/mc L [facility] Lymph % 15.4 % [facility] Lymphocytes Abs 1.4 0.9 - 3.2 x10(3)/mc L [facility] Monocyte % 6.1 % [facility] Monocyte Abs 0.6 0.3 - 0.9 x10(3)/mc L [facility] Eos % 1.1 % [facility] Eosinophils Abs 0.1 0.0 - 0.4 x10(3)/ L [facility] Basophil % 0.6 % [facility] Baso Absolute 0.0 0.0 [...] x10(3)/ L [facility] Blood 10/30/2023 10:0 5 PM EDT 10/30/2023 10:12 PM EDT Narrative Resulting Agency Comment Spec In Lab Qamar Gallardo MD HEMATOLOGY ORDERABLE S [facility] [place] [address] * (ABNORMAL) Hemogram (10/30/2023 10:05 PM EDT) White Blood Cell 9.0 4.0 - 9.5 x10(3)/ L [facility] [...] Platelet 211 145 - 357 x10(3)/ L [facility] RDW Standard Deviation 53.6(H) 37.0 - 46.[address] [facility] RDW coefficient of variation 14.6(H) 11.5 - 14.1 % [facility] Mean Platelet Volume 11.1 7.6 - 12.[address] [facility] NRBC% auto 0.0 % [facility] NRBC Absolute 0.000 0.000 - 0.000 x10(3)/mc L [facility] Blood 10/30/2023 10:0 5 PM EDT 10/30/2023 10:12 PM EDT Narrative Resulting Agency Comment Spec In Lab Qamar Gallardo MD HEMATOLOGY ORDERABLE S Performing Organization Address City/[facility]/ZIP Co de Phone Number [facility] [place] [address] * Hemoglobin A1c (10/30/2023 10:05 PM EDT) [...] Mellitus, Diabetes Care 2013; 36: Suppl. 1, J79-93 Estimated Average Glucose See note mg/dL [facility] Comment: Estimated Average Glucose not appropriate for patients over 70 years of age. Blood 10/30/2023 10:0 5 PM EDT 10/30/2023 10:12 PM EDT Narrative Resulting Agency Comment Spec In Lab Rosa Cornejo MD CHEMISTRY ORDERABLE S Performing Organization Address City/[facility]/ZIP Co de Phone Number [facility] [place] [address] * Lipid Panel (Reflex Direct LDL) (10/30/2023 10:05 PM EDT) Cholesterol, Total 218 mg/dL [facility] Comment: Desirable: ? <200 mg/dL Borderline High: 200-239 mg/dL Higher: ?>zs=513 mg/dL Triglyceride 46 mg/dL [facility] Comment: Normal: ?<150 mg/dL Borderline High: 150-199 mg/dL High: ?200-499 mg/dL Very High: ? >dc=233 mg/dL HDL Cholesterol 64 mg/dL [facility] Comment: Females: High Risk: <50 mg/dL Males: High Risk: <40 mg/dL LDL Cholesterol 145 mg/dL [facility] Comment: Desirable: ? <100 mg/dL Above Desirable: 100-129 mg/dL Borderline High: 130-159 mg/dL High: ?160-189 mg/dL Very High: ? >vu=249 mg/dL Lipid Interpretation See Note [facility] [...] ACC/AHA Guidelines (most recently Feliciano et al. [facility] 03/23/22): For individuals with atherosclerotic cardiovascular disease (ASCVD)or LDL >qp=668 mg/dL, use a high-intensity statin (40-80 mg [...] CHEMISTRY ORDERABLE S [facility] [place] [address] * TSH [place] (10/30/2023 10:05 PM EDT) Thyroid Stimulating Hormone 3.35 0.27 - 4.20 mcIU/mL [facility] Comment: Reference Interval (mcIU/mL): Females: ??First Trimester: 0.23-3.88 ??Second Trimester: 0.22-3.90 ??Third Trimester: 0.44-4.66 Blood 10/30/2023 10:0 5 PM EDT 10/30/2023 10:12 PM EDT Narrative Resulting Agency Comment Spec In Lab Rosa Cornejo MD CHEMISTRY ORDERABLE S [facility] [place] [address] * pro-Brain Natriuretic Peptide (10/30/2023 10:05 PM EDT) NT-proBNP 375 <=449 pg/mL [facility] Blood 10/30/2023 10:0 5 PM EDT 10/30/2023 10:12 PM EDT Narrative Resulting Agency Comment Spec In Lab Rosa Cornejo MD CHEMISTRY ORDERABLE S Performing Organization Address [facility]/ZIP Co de Phone Number [facility] [place] [id number] * (ABNORMAL) Comprehensive metabolic panel (non-fasting) (10/30/2023 10:05 PM EDT) Pathologist [facility] Glucose 121 65 - 199 mg/dL ST [...] CHEMISTRY ORDERABLE S Performing Organization Address City/[facility]/ZIP Co de Phone Number [facility] [place] [address] * Phosphorus (10/30/2023 10:05 PM EDT) Phosphorus 3.3 2.5 - 4.5 mg/dL [facility] Blood 10/30/2023 10:0 5 PM EDT 10/30/2023 10:12 PM EDT Narrative Resulting Agency Comment Spec In Lab Rosa Cornejo MD CHEMISTRY ORDERABLE S Performing Organization Address City/[facility]/ZIP Co de Phone Number [facility] [place] [address] * Magnesium (10/30/2023 10:05 PM EDT) Magnesium 0.86 0.69 - 1.07 mmol/L [facility] Blood 10/30/2023 10:0 5 PM EDT 10/30/2023 10:12 PM EDT Narrative Resulting Agency Comment Spec In Lab Rosa Cornejo MD CHEMISTRY ORDERABLE S [facility] [place] [address] * (ABNORMAL) Troponin (10/30/2023 10:05 PM EDT) Troponin-T, High Sensitivity 214(H) <=14 ng/L ST [...] - [facility] Test Catalog Reference: [place] Definition of Myocardial Infarction. Journal of the [place] [employer] 2018;72:6910-9233 Blood 10/30/2023 10:0 5 PM EDT 10/30/2023 10:12 PM EDT Narrative Resulting Agency Comment Spec In Lab Rosa Cornejo MD CHEMISTRY ORDERABLE S [facility] [place] [address] * EKG 12 Lead (10/30/2023 8:21 PM EDT) Ventricular rate 49 BPM MUSE SYSTEM Atrial Rate 49 BPM MUSE SYSTEM P-R Interval 230 ms MUSE SYSTEM QRS Duration 96 ms MUSE SYSTEM Q-T Interval 526 ms MUSE SYSTEM QTC Calculated (Bezet) 475 ms MUSE SYSTEM Calculated P [place] 98 degrees MUSE SYSTEM Calculated R [place] -48 degrees MUSE SYSTEM Calculated T [place] -51 degrees MUSE SYSTEM INTERPRETATION Sinus bradycardia [...] MD ECG ORDERABLES Performing Organization Address City/[facility] Co de Phone Number MUSE SYSTEM documented [...] documented as of this encounter Care Teams Radar Engineer Relationship Specialty Start Date End Date Rosie Mathews MD [address] [place] [address] PCP - General Family Medicine 11/25/17 11/23/23 documented as of this encounter
--- OUTSIDE RECORDS SUMMARY | 2024-03-05 10:23 | XMS_ITS | Encounter Summary ---
Author Organization [facility] Address [address] [place] [address] Care Team Providers Care Tree Tapping Laborer Name Role Phone Kirsten Bateman MD Primary Care Provider [phone] Reason for Visit * Reason Comments Hearing Loss tinnitus Encounter Details Date Type Department Care Team (Latest Contact Info) Description 01/15/2010 10:10 EDT Office Visit [address] [address] Unknown, ProviderMD Ray Farooq MD [address] [place] [address] [address] Sensorineural hearing loss, bilateral; Subjective [...] Ray Farooq MD - 01/28/2010 1108 EDT [facility] PRO[facility]ESS/FOLLOWUP NOTE - 01/15/2010 CHIEF COMPLAINT: [...] – [place] Job ID: SM Doc ID: [id number] Ext Doc ID: [id number] cc: Kirsten Bateman MD * Ray Farooq [...] tinnitus documented in this encounter Care Teams Tree Tapping Laborer Relationship Specialty Start Date End Date Kirsten Bateman MD [address] [place] [address] PCP - General 01/13/10 documented as of this encounter
--- OUTSIDE RECORDS SUMMARY | 2024-03-05 10:23 | XMS_ITS | Encounter Summary ---
Author Organization Pending Sale To [facility] Address [facility] [place] [address] Care Team Providers Care Jumpbasting Collar Baster Name Role Phone Rosie Mathews MD Primary Care Provider [phone] Reason for Visit * Reason Comments Skin Lesion * Consultation (Routine) - Closed Specialty Diagnoses / Procedures Referred By John hunt Referred To Contact Dermatology Diagnoses facial skin lesion Procedures pt would like to be seen PRADEEP Rosie Mathews MD [address] [place] [address] [facility] Dermatology [address] [place] [address] Referral ID Status Reason Start Date Expiration Date V isits Requested Visits Authorized [id number] Closed Consult, Test & Treat Connection Center 10/25/2017 10/25/2018 1 1 Encounter Details Date Type Department Care Team (Late st Contact Info) Description 11/25/2017 4:30 PM EDT Office Visit Dermatology at [facility] [address] [place] [address] Call, Radu Go MD [facility] DR [address]ER[place] [address] Seborrheic keratosis; Fibrous papule of [...] by Radu Tom MD Resident in Dermatology [facility] Patient seen in conjunction with staff battery builder: Terri Hale MD Section of Dermatology [facility] * Terri Hale MD - 11/25/2017 4:30 [...] AM EDT Office Visit Cardiology at [address] [address] Izaiah Meyer MD [facility] [place] [address] documented as of this encounter Visit Diagnoses Diagnosis Seborrheic keratosis Other seborrheic keratosis Fibrous papule of nose Benign neoplasm of skin of other and unspecified parts of face Skin tags, multiple acquired documented in this encounter Care Teams Jumpbasting Collar Baster Relationship Specialty Start Date End Date Rosie Mathews MD [address] [place] [address] PCP - General Family Medicine 11/25/17 11/23/23 documented as of this encounter
--- OUTSIDE RECORDS SUMMARY | 2024-03-09 10:33 | XMS_ITS | Encounter Summary ---
Author Organization [facility] Address [facility] [place] [address] Care Team Providers Care Acoustic Engineer Name Role Phone Rosie Mathews MD Primary Care Provider [phone] Reason for Visit * Reason Onset Date Comments Referral 11/03/2023 Coronary Artery Disease 11/03/2023 Encounter Details Date Type Department Care Team (Late st Contact Info) Description 11/03/2023 Telephone Cardiology at [address] [address] Andressa Machado, contract serviceman; Coronary Artery Disease Social History Tobacco Use Types Packs/Day Years Used Date Smoking Tobacco: Former Smokeless Tobacco: Never Alcohol Use Standard Drinks/Week Comments Not Currently 0 (1 standard drink = 0.6 oz pur e alcohol) [facility] Utilities Answer Date Recorded In the past 12 months has e [employer], gas, oil, or water [employer] threatened to shut off services in your [...] were not included. [facility] Cardiology Clinic [address] [place] [phone] Lyla was referred to this Cardiology clinic in [place] for post cardiac cath 10/31 for STEMI follow up as part of her discharge plan from [facility] documented in this encounter Plan of Treatment Upcoming Encounters Date Type Department Care Team (Late st Contact Info) Description 03/29/2024 11:20 AM EDT Office Visit Cardiology at [address] [place] [address] Izaiah Meyer MD [facility] [place] [address] documented as of this encounter Visit Diagnoses Not on filedocumented in this encounter Care Teams Acoustic Engineer Relationship Specialty Start Date End Date Rosie Mathews MD [address] [place] [address] PCP - General Family Medicine 11/25/17 11/23/23 documented as of this encounter
--- OUTSIDE RECORDS SUMMARY | 2024-03-09 10:33 | XMS_ITS | Encounter Summary ---
Author Organization [facility] Address [facility] [place] [address] Care Team Providers Care Elevator Technician Name Role Phone Rosie Mathews MD Primary Care Provider [phone] Encounter Details Date Type Department Care Team (Late st Contact Info) Description 11/18/2023 Telephone Cardiology at [address] [address] Cheryl Guzman MD [facility] [place] [address] Social History Tobacco Use Types Packs/Day Years Used Date Smoking Tobacco: Former Smokeless Tobacco: Never Alcohol Use Standard Drinks/Week Comments Not Currently 0 (1 standard drink = 0.6 oz pur e alcohol) [facility] Utilities Answer Date Recorded In the past 12 months has e electric, gas, oil, or water [employer] threatened to shut off services in your [...] Provider: Radu Giron MD Patient Location: ED, [facility] Past Medical History: HTN HLD NSTEMI ([facility] 11/02, status-post revasc) Presenting Symptoms per OSH: Lyla Goodrich is a 83 y.o. woman who presents to [facility] with an episode of chest pain. Recent admission to [facility] with NSTEMI status-post PCI to the prox-RCA [...] today's values. 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 Recommend admission for observation to assess for [...] AM EDT Office Visit Cardiology at [address] [phone] Izaiah Meyer MD [facility] [place] [address] documented as of this encounter Visit Diagnoses Not on filedocumented in this encounter Care Teams Elevator Technician Relationship Specialty Start Date End Date Rosie Mathews MD [address] [place] [address] PCP - General Family Medicine 11/25/17 11/23/23 documented as of this encounter
--- OUTSIDE RECORDS SUMMARY | 2024-03-09 10:33 | XMS_ITS | Encounter Summary ---
Author Organization [facility] Address [facility] [place] [address] Care Team Providers Care Results Engineer Name Role Phone Masood Pierson MD Primary Care Provider [phone] Encounter Details Date Type Department Care Team (Late st Contact Info) Description 02/24/2024 11:10 PM EDT Ancillary Procedure Radiology Library at [facility] [place] [address] Masood Pierson MD [address] [place], [place] [id number] Social History Tobacco Use Types Packs/Day Years [...] AM EDT Office Visit Cardiology at [address] [address] Izaiah Meyer MD [facility] [address] documented as of this encounter Procedures Procedure [...] IMG FILM LIBRARY ORD ERABLES [facility] [place], [place] documented in this encounter Visit Diagnoses Not on filedocumented in this encounter Care Teams Results Engineer Relationship Specialty Start Date End Date Masood Pierson MD [address] [place] [address] PCP - General Family Medicine 11/24/23 documented as of this encounter
--- OUTSIDE RECORDS SUMMARY | 2024-03-09 10:33 | XMS_ITS | Encounter Summary ---
Author Organization [facility] Address [facility] [place] [address] Care Team Providers Care Dovetail Machine Operator Name Role Phone Masood Pierson MD Primary Care Provider [phone] Encounter Details Date Type Department Care Team (Late st Contact Info) Description 12/16/2023 Telephone Cardiology at [address] [place] [address] Izaiah Meyer MD [facility] [place] [address] Social History Tobacco Use Types Packs/Day Years Used Date Smoking Tobacco: Former Smokeless Tobacco: Never Alcohol Use Standard Drinks/Week Comments Not Currently 0 (1 standard drink = 0.6 oz pur e alcohol) [facility] Utilities Answer Date Recorded In the past 12 months has [employer], gas, oil, or water [employer] threatened to shut off services in [...] AM EDT Denise, [facility] Cardiac hotel or motel room service supervisor, called to report that at today's session [...] AM EDT Office Visit Cardiology at [address] [place] [address] Izaiah Meyer MD [facility] [place] [place] [address] documented as of this encounter Visit Diagnoses Not on filedocumented in this encounter Care Teams Dovetail Machine Operator Relationship Specialty Start Date End Date Masood Pierson MD [address] [place] [address] PCP - General Family Medicine 11/24/23 documented as of this encounter
--- OUTSIDE RECORDS SUMMARY | 2024-03-09 10:33 | XMS_ITS | Encounter Summary ---
Author Organization [facility] Address [facility] [place] [address] Care Team Providers Care Long Chain Quiller Tender Name Role Phone Masood Pierson MD Primary Care Provider [phone] Encounter Details Date Type Department Care Team (Late st Contact Info) Description 02/27/2024 Telephone Cardiology at [address] [place] [address] Izaiah Meyer MD [facility] [place] [address] Social History Tobacco Use Types Packs/Day Years Used Date Smoking Tobacco: Former Smokeless Tobacco: Never Alcohol Use Standard Drinks/Week Comments Not Currently 0 (1 standard drink = 0.6 oz pur e alcohol) [facility] Utilities Answer Date Recorded In the past 12 months has [employer], gas, oil, or water [employer] threatened to shut off services in your [...] place to sleep or slept in a detention (including now)? No 11/01/2023 DH IPV Inpatient [...] 3:30 PM EDT Lyla was seen at [facility] this past Tuesday for chest pain and returned to the ED Tuesday for back pain.Per patient both times it was determined she was having no cardiac issues but she was told to let her pasting machine offbearer know. At present she is not having [...] AM EDT Office Visit Cardiology at [address] [address] Izaiah Meyer MD [facility] [place] [address] documented as of this encounter Visit Diagnoses Not on filedocumented in this encounter Care Teams Long Chain Quiller Tender Relationship Specialty Start Date End Date Masood Pierson MD [address] [place] [address] PCP - General Family Medicine 11/24/23 documented as of this encounter
--- OUTSIDE RECORDS SUMMARY | 2024-03-09 10:33 | XMS_ITS | Clinical Summary ---
Author Organization [facility] Address [facility] [place] [address] Care Team Providers Care Outside Laborer Name Role Phone Masood Pierson MD Primary Care Provider [phone] Allergies Active Allergy Reactions Criticality Noted Date [...] Care Team Description 02/27/2024 Telephone Cardiology at [address] [address] Izaiah Meyer MD 02/24/2024 11:10 PM EDT Ancillary Procedure Radiology Library at [facility] [place] [address] Masood Pierson MD 02/24/2024 External Results Transfer Center [facility] [place] [address] 12/16/2023 Telephone Cardiology at [address] [address] Izaiah Meyer MD from Last 3 Months Social History Tobacco Use Types Packs/Day Years Used Date Smoking Tobacco: Former Smokeless Tobacco: Never Alcohol Use Standard Drinks/Week Comments Not Currently 0 (1 standard drink = 0.6 oz pur e alcohol) [facility] Utilities Answer Date Recorded In the past 12 months has th e electric, gas, oil, or water [employer] threatened to shut off services in your [...] AM EDT Office Visit Cardiology at [address] [place] [address] Izaiah Meyer MD [facility] [place] [address] Health Maintenance Due Date Last Done Comments [...] CT Chest (02/24/2024 11:05 PM EDT) Narrative [facility] - 02/24/2024 11:05 PM EDT This exam is auto-finalizing. It's purpose is for storage only. Masood Pierson MD IMG FILM LIBRARY ORD ERABLES Performing Organization Address City/State/[facility] Co de Phone Number [place], [place] from Last 3 Months Advance Directives * Attempt Cardiopulmonary Resuscitation - Inpatient (Latest Code Status on File) Date Activated Date Inactivated Comments 10/30/2023 9:58 PM 11/03/2023 7:13 PM Question Answer Comments Code Status decision made by: Patient Care Teams Outside Laborer Relationship Specialty Start Date End Date Masood Pierson MD [address] [place] [address] PCP - General Family Medicine 11/24/23
--- OUTSIDE RECORDS SUMMARY | 2024-03-09 10:33 | XMS_ITS | Encounter Summary ---
Author Organization [facility] Address [facility] [place] [address] Care Team Providers Care Assembler Tester Name Role Phone Masood Pierson MD Primary Care Provider [phone] Encounter Details Date Type Department Care Team (Latest Contact Info) Description 11/24/2023 Travel Social History Tobacco Use Types Packs/Day Years Used Date Smoking Tobacco: Former Smokeless Tobacco: Never Alcohol Use Standard Drinks/Week Comments Not Currently 0 (1 standard drink = 0.6 oz pur e alcohol) [facility] Utilities Answer Date Recorded [...] AM EDT Office Visit Cardiology at [address] [address] Izaiah Meyer MD [facility] [place] [address] documented as of this encounter Visit Diagnoses Not on filedocumented in this encounter Care Teams Assembler Tester Relationship Specialty Start Date End Date Masood Pierson MD [address] [place] [address] PCP - General Family Medicine 11/24/23 documented as of this encounter
--- OUTSIDE RECORDS SUMMARY | 2024-03-09 10:33 | XMS_ITS | Encounter Summary ---
Author Organization [facility] Address [facility] [place] [address] Care Team Providers Care Medical Assistant Dermatology Name Role Phone Rosie Mathews MD Primary Care Provider [phone] Reason for Referral * Consultation (Routine) - Authorized Specialty Diagnoses / Procedures Referred By Contac t Referred To Contact Cardiology Diagnoses 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 Rosa Hugo MD [facility] [place] [address] Cardiac Rehab, [address] [place] [address] Referral ID Status Reason Start Date Expiration Date Visits Requested Visits Authorized [id number] Authorized Consult, Test & Treat Non PCP 11/03/2023 05/01/2024 36 36 * Home Health Care (Routine) - Authorized Specialty Diagnoses / Procedures Referred By Contac t Referred To Contact Diagnoses Unstable angina Rosa Hugo MD [facility] [place] [address] Referral ID Status Reason Start Date Expiration Date Visits Requested Visits Authorized [id number] Authorized Consult, Test & Treat 11/03/2023 05/01/2024 999 999 Reason for Visit * Auth/Cert (Routine) Specialty Diagnoses / Procedures Referred By John hunt Referred To Contact Diagnoses Unstable angina Chest pain NSTEMI Procedures CARDIAC CATHETERIZATION Rosa Dewey MD [facility] [place] [address] [place] Referral ID Status Reason Start Date Expiration Date Visits Re quested Visits Authorized [id number] 1 1 Encounter Details Date Type Department Care Team (Latest Contact Info) Description 10/30/2023 5:11 PM EDT - 11/03/2023 5:13 PM EDT Hospital Encounter Heart and Vascular Unit Level 4 [place] [address] Rosa Dewey MD [facility] [place] [address] Jean Laboy MD [facility] [place] [address] Rosa Hugo MD [facility] [place] [address] 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; Tachycardia; Unstable angina Discharge Disposition: Home Social History Tobacco Use Types Packs/Day Years Used Date Smoking Tobacco: Former Smokeless Tobacco: Never Alcohol Use Standard Drinks/Week Comments Not Currently 0 (1 standard drink = 0.6 oz pur e alcohol) [facility] Utilities Answer Date Recorded In the past 12 months has e [employer], gas, oil, or water [employer] threatened to shut off services in your [...] for hypertension and hyperlipidemia who presented to [facility] as a transfer from [facility] as a possible STEMI alert with acute onset chest pain. The patient reports that her symptoms initially began on Tuesday when she was walking to [facility] and experienced bilateral arm heaviness while walking with no other symptoms. Then, this afternoon shereports developing bilateral achy shoulder pain and nonradiating substernal left-sided chest pressure that was 7/10 in severity after coming home from latter day. The patient denies any associated fevers, chills, [...] on repeat, her TRU resolved. Cardiology at [facility] was consulted for transfer; the patient was loaded with aspirin 324 mg and ticagrelor 180 mg, started on a heparin drip, and given nitroglycerin with improvement in chest pain. Upon arrival to [facility], the patient was taken directly to the [facility]. 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 Recommended anti-platelet/anti-thrombotic regimen: Continue aspirin 81 [...] and low lung volumes. Findings similar to floor layer tile radiograph from CT 10/30/2023. Pending Studies and [...] 10:40 AM Izaiah Meyer MD Cardiology at [place] Arrive at: [facility] [address] [phone] Future Orders Complete By Expires Referral to Cardiac Rehab [[id number] Custom] As directed Process Instructions: If no progress note charted, please enter Clinical details in comments. Scheduling Instructions: Questions: My question or request is: STEMI. Cardiac rehab at [facility]. Referral to Home Health [[id number] Custom] As directed Process Instructions: If no progress note charted, please enter Clinical details in comments. Scheduling Instructions: Comments: Please evaluate Adin Santos for admission to Home Health. [address] [place] [address] (home) Date of : 1940 Inpatient DOCUMENTATION FOR VNA SERVICES (INCLUDING THOSE PATIENTS WITH MEDICARE COVERAGE REQUIRING HOME VNA SERVICES AND/OR HOSPICE SERVICES) PATIENT'S LOCATION: Adin Santos [address] [place] [phone] (home) Cell: Telephone Information: Automotive Service Consultant's Name: self In discussion with the attending physician, it is certified that this patient is under their care and that they, or a Nurse Practitioner, Clinical Nurse specialist or Physician Acoustical Carpenter who is working directly with them, had [...] regarding health issues HOME HEALTH CARE AGENCY: [facility] [address] [place] [address] START OF CARE: within 24-48 hours of [...] Mathews MD [address] / [place] [address] . All A agencies which cover [...] MD / Dr. Masood Pierson [address] [place] [address] 11/09/23 1:55 PM arrival for 2:10 PM appointment Detective: Izaiah Meyer MD [address] [place] [id number] , 11/24/2023 10:40 AM Your Inpatient Medical Team at [facility] Name(s) of your inpatient provider(s): Attending physician: Rosa Hugo MD Resident physicians: Emile Robles MD; Elmer Tamez MD If you have non-emergent questions, prior to your follow-up visit call: Tuesday-Tuesday between the hours of 8AM-5PM please call the Cardiology Clinic [phone] to speak with a nurse. All other hours please call the Hospital Roadmaster [phone] and ask to speak to the registration representative on-call. Your Primary Care Provider Rosie Mathews MD [phone] For questions regarding this document or issues relating to this hospitalization on the Medical Service, please contact your inpatient physician through the [facility] Roadmaster . Issues afterhours and on weekends will be handled by the Detective staff on-call. Associated attestation - Rosa Hugo [...] MD / Dr. Masood Pierson [address] [place] [address] 11/09/23 1:55 PM arrival for 2:10 PM appointment Detective: Izaiah Meyer MD [address] [place] [address] , 11/24/2023 10:40 AM Your Inpatient Medical Team at [facility] Name(s) of your inpatient provider(s): Attending physician: Rosa Hugo MD Resident physicians: Emile Robles MD; Elmer Tamez MD If you have non-emergent questions, prior to your follow-up visit call: Tuesday-Tuesday between the hours of 8AM-5PM please call the Cardiology Clinic [phone] to speak with a nurse. All other hours please call the Hospital Roadmaster [phone] and ask to speak to the registration representative on-call. Your Primary Care Provider Rosie Mathews MD [phone] documented in this encounter Medications at Time [...] for hypertension and hyperlipidemia who presented to [facility] as a transfer from [facility] [...] for hypertension and hyperlipidemia who presented to [facility] as a transfer from [facility] [...] Resident on Cardiology Service Cardiology S1 (Pager [phone]) Note written in conjunction with Claudio Perla [facility] Medical Student, MS3 Associated attestation [...] Nirmala Webb - 11/01/2023 11:25 AM EDT Associate Professor Of Geology Encounter Note Patient Name: Adin Santos : [id number] MR#: [id number] Admit Date: 10/30/2023 5:11 PM Hospital Day 2 days Narrative: Self initiated visit to patient for Spiritual support in a regular unit rounds. Assessment: Patient is in the bathroom at the time of this visit. Not a good time for Beam Doffer visit. Intervention and Outcome: An attempted visit [...] for hypertension and hyperlipidemia who presented to [facility] as a transfer from [facility] [...] and low lung volumes. Findings similar to floor layer tile radiograph from CT 10/30/2023. Scheduled Medications: [AUG [...] for hypertension and hyperlipidemia who presented to [facility] as a transfer from [facility] [...] Resident on Cardiology Service Cardiology S1 (Pager [phone]) Note written in conjunction with Claudio Perla [facility] Medical Student, MS3 Associated attestation [...] for hypertension and hyperlipidemia who presented to [facility] as a transfer from [facility] as a possible STEMI alert with acute onset chest pain. Active Problems: Active Hospital Problems Diagnosis Unstable angina Resolved Hospital Problems No resolved problems to display. 24 hr events: - Cath'd yesterday with lesion in the proximal RCA (initially thought it was BRIDGE WORKER but they were ableto wire, balloon and [...] and low lung volumes. Findings similar to floor layer tile radiograph from CT 10/30/2023. TTE (05/13): Interpretation [...] for hypertension and hyperlipidemia who presented to [facility] as a transfer from [facility] [...] Resident on Cardiology Service Cardiology S1 (Pager [phone]) Note written in conjunction with Claudio Perla [facility] Medical Student, MS3 Associated attestation [...] PCP: Rosie Mathews MD PCP phone number: [phone] Date of Admission: 10/30/2023 ( Hospital Day 0 days ) Attending:Rosa Cornejo MD ID: Adin Santos is a 83 y.o. female PMH significant for hypertension and hyperlipidemia who presented to [facility] as a transfer from [facility] as a possible STEMI alert with acute onset chest pain. The patient reports that her symptoms initially began on Tuesday when she was walking to [employer] and experienced bilateral arm heaviness while walking with no other symptoms. Then, this afternoon shereports developing bilateral achy shoulder pain and nonradiating substernal left-sided chest pressure that was 7/10 in severity after coming home from latter day. The patient denies any associated fevers, chills, [...] on repeat, her TRU resolved. Cardiology at [facility] was consulted for transfer; the patient was loaded with aspirin 324 mg and ticagrelor 180 mg, started on a heparin drip, and given nitroglycerin with improvement in chest pain. Upon arrival to [facility], the patient was taken directly to the [facility]. 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 Findings similar to floor layer tile radiograph from CT 10/30/2023. Assessment & Plan: Adin Santos is a 83 y.o. female PMH significant for hypertension and hyperlipidemia who presented to [facility] as a transfer from [facility] [...] HLD transferred with chest from [facility]. BP 217/68, HR [address] [...] information for follow-up Home Health & Hospice, [place] [address] [place] [address] TANESHA BOYCE confirmed with [facility] that they will see the patient [...] N/A Patient is insured through: Primary Insurance: [employer] MANAGED MEDICARE Payor: [employer] MEDICARE / Plan: [employer] MANAGED MEDICARE PPO / Product Type: [...] the room. Electrolytes replaced, see MAR. lab tester sites remained C/D/I with baseline ecchymosis unchanged. Pt complained of back pain, lidocaine patch given. Right IV infiltrated during infusion, patient is marked with sharpie, IV removed. See flowsheet for I+O's and safety rounding. Patient is able to make needs known and call capps within reach. PLAN MOVING FORWARD: Monitor Tele, control BP, monitor incinerator plant laborer sites, D/C Planning INDIVIDUALIZED FALL PREVENTION [...] outpatient cardiac rehabilitation program at [facility] was discussed. Patient agrees to a referral [...] and above on RA. PT went to incinerator plant laborer today. Left fem site oozed throughout [...] MOVING FORWARD: Monitor Tele, control BP, monitor incinerator plant laborer sites, D/C Planning INDIVIDUALIZED FALL PREVENTION [...] Transfer from another hospital Location: [facility] Reason for Hospitalization: chest pain Covid Vaccination [...] receiving care in [place] must abide by [place] law. The hierarchy [...] steady place to sleep or slept in [facility] (including now)?: No In the past [...] toilet seat Home Address confirmed as: [address] [place] [phone] Social & Family Supports: All names listed below confirmed with patient as current and correct Extended Emergency Contact Information Primary Emergency Contact: Iris Downing Address: [address] [place], [place] [address] [place] [address] Mobile Relation: Child Secondary Emergency Contact: Karen More Address: [address] Mobile Relation: Child Current Care Provided by: self Provides Primary Care For: no one Caregiver if needed: child(emmanuel), adult Quality of Family relationships: involved, supportive Community Resources being provided currently: other (see comments) (receives [facility] services at home (1xweekly)) Behavioral Health History: [...] Insurance: N/A Prescription Coverage: Yes Preferred Pharmacy: [facility] - [place], [place] - [address] [facility] [address] [facility] [address] Status: Patient is a : No Primary Care Provider listed: Masood Pierson MD [phone] Patient/Caregiver Goals of Treatment: home when MR Potential Needs for Transition of Care: home health care Agency Referrals: Not Applicable I have met with the patient to: discuss discharge planning needs. provide the [facility], Office of Care Management letter from the Senior Ux Developer pertaining to rehab referrals. provide a letter describing our affiliations within the [facility] and educate about their right to choose where referrals are sent. provide a list of Home Health Agencies / Durable Medical Equipment vendors which serve their preferred geographic area. provided patient with [facility] Star Quality Rating handout. They have requested referrals to: [facility] [address] [place] [address] Note routed to a Trust Officer who will communicate referrals to facilities and [...] PO hydralazine added for BP control. lab tester sites remain C/D/I, ecchymosis unchanged th roughout shift. See flowsheet for I+O's and safety rounding. Patient is able to make needs known and call capps within reach. PLAN MOVING FORWARD: Monitor Tele, control CP and BP, NPO at MD for cath, monitor incinerator plant laborer sites, D/C Planning INDIVIDUALIZED FALL PREVENTION [...] AM EDT Office Visit Cardiology at [address] [place] [address] Izaiah Meyer MD [facility] [place] [address] Scheduled Referrals Name Type Priority Associated Diagnoses [...] [facility] Lymph % 15.2 % [facility] Lymphocytes Abs 1.3 0.9 - 3.2 x10(3)/ L [facility] Monocyte % 16.9 % [facility] Monocyte Abs 1.4(H) 0.3 - 0.9 x10(3)/ L [facility] Eos % 3.7 % [facility] Eosinophils Abs 0.3 0.0 - 0.4 x10(3)/[facility] Basophil % 0.5 % [facility] [...] MD HEMATOLOGY ORDERABLE S [facility] [place] [address] * (ABNORMAL) Hemogram (11/03/2023 3:46 AM EDT) [...] HOSPITAL LABORATORY Platelet 181 145 - 357 x10(3)/[facility]ORATORY RDW Standard Deviation 54.7(H) 37.0 - 46.0 [facility] LABORATORY RDW coefficient of variation 14.6(H) 11.5 - 14.1 % [facility] Mean Platelet Volume 11.2 7.6 - 12.9 [facility] LABORATORY NRBC% auto 0.0 % [facility] NRBC Absolute 0.000 0.000 - 0.000 x10(3)/ L [facility] Blood 11/03/2023 3:46 AM EDT 11/03/2023 4:11 AM EDT Narrative Resulting Agency Comment Spec In Lab Qamar Gallardo MD HEMATOLOGY ORDERABLE S [facility] [place] [address] * Phosphorus (11/03/2023 3:46 AM EDT) Phosphorus 3.2 2.5 - 4.5 mg/dL [facility] Comment:result rechecked-KS Blood 11/03/2023 3:46 AM EDT 11/03/2023 4:11 AM EDT Narrative Resulting Agency Comment Spec In Lab Rosa Cornejo MD CHEMISTRY ORDERABLE S [facility] [place] [address] * Magnesium (11/03/2023 3:46 AM EDT) Magnesium 0.90 0.69 - 1.07 mmol/L [facility] Blood 11/03/2023 3:46 AM EDT 11/03/2023 4:11 AM EDT Narrative Resulting Agency Comment Spec In Lab Rosa Cornejo MD CHEMISTRY ORDERABLE S Performing Organization Address City/[facility]/ZIP Co de Phone Number [facility] [place] [address] * (ABNORMAL) Basic Metabolic Panel (non-fasting) (11/03/2023 [...] MD CHEMISTRY ORDERABLE S [facility] [place] [id number] * EKG 12 Lead (11/02/2023 12:44 PM EDT) Ventricular rate 83 BPM MUSE SYSTEM Atrial Rate 83 BPM MUSE SYSTEM P-R Interval 216 ms MUSE SYSTEM QRS Duration 90 ms MUSE SYSTEM Q-T Interval 384 ms MUSE SYSTEM QTC Calculated (Bezet) 451 ms MUSE SYSTEM Calculated P [place] 92 degrees MUSE SYSTEM Calculated R [place] -51 degrees MUSE SYSTEM Calculated T [place] -33 degrees MUSE SYSTEM INTERPRETATION Sinus rhythm [...] Tamez MD URINE ORDERABLES Performing Organization Address City/[facility] Co de Phone Number [facility] [place] [address] * (ABNORMAL) Urinalysis with reflex Culture (11/02/2023 [...] Dipstick Cloudy(A) Clear [facility] Specific [place] Urine Automated >=1.030(A) 1.005 - 1.030 [facility] Color, Urine Dipstick Dark Yellow Yellow [facility] Reflex to Culture Yes [facility] Clean Catch Urine 11/02/2023 11:40 AM EDT 11/02/2023 12:04 PM EDT Narrative Resulting Agency Comment Spec In Lab Rosa Hugo MD URINE ORDERABLES Performing Organization Address City/State/[facility] Co de Phone Number [facility] [place] [address] * Respiratory Panel PCR (11/02/2023 10:15 AM EDT) Respiratory Panel Source HONEYCOMB DECAPPER Swab [facility] Respiratory Panel PCR Negative Negative [facility] Comment: Respiratory Panels are performed on the [employer], using multiplexed PCR nucleic acid detection. ??Negative [...] performed using the [employer] Respiratory Panel 2.1 (Joberator) as authorized by the FDA issued Emergency Use Authorization (EUA). This panel also tests for multiple other viral and bacterial pathogens. This assay is intended for In-vitro Diagnostic (IVD) use with nasopharyngeal swabs in viral transport media. The assay is performed based on the instructions for use and additional guidance provided by the FDA. Testing is performed in laboratories within the [facility], each of which is certified [...] fact sheets at the following FDA website: https://www.fda.gov/medical-devices/lypflawjxql-ktqmkgv-0455-wsclv-08-zfxduhwro- use-a blexmckjwfqfl-jnmpbic-exnmfgb/oackw-yyexuffwncv-lkky Human Metapneumovirus Not Detected Not Detected [facility] [...] - GEN ERAL ORDERABLES [facility] [place] [address] * XR Chest One View (11/02/2023 2:51 AM EDT) WORKSTATION ID [id number] RAD Anatomical Region Laterality Modality Chest N/A [...] have questions please contact the health healthcare technician that requested your imaging first. ? [...] who have questions please contactthe health healthcare technician that requested your imaging first. Rosa Hugo MD IMG DX ORDERABLES * (ABNORMAL) Differential, Automated (11/02/2023 12:35 AM EDT) Neutrophil % 76.5 % [facility] Neutrophil Absolute 7.69(H) 1.70 - 6.10 x10(3)/mc L [facility] Lymph % 8.3 % [facility] Lymphocytes Abs 0.8(L) 0.9 - 3.2 x10(3)/mc L [facility] Monocyte % 12.9 % [facility] Monocyte Abs 1.3(H) 0.3 - 0.9 x10(3)/mc L [facility] Eos % 1.4 % [facility] Eosinophils Abs 0.1 0.0 - 0.4 x10(3)/mc L [facility] Basophil % 0.4 % [facility] [...] HEMATOLOGY ORDERABLE S [facility] [place] [address] * (ABNORMAL) Hemogram (11/02/2023 12:35 AM EDT) [...] [facility] LABORATORY NRBC% auto 0.0 % [facility] NRBC Absolute 0.000 0.000 - 0.000 x10(3)/ L [facility] Blood 11/02/2023 12:3 5 AM EDT 11/02/2023 12:43 AM EDT Narrative Resulting Agency Comment Spec In Lab Qamar Gallardo MD HEMATOLOGY ORDERABLE S [facility] [place] [address] * (ABNORMAL) Phosphorus (11/02/2023 12:35 AM EDT) Phosphorus 1.6(L) 2.5 - 4.5 mg/dL [facility] Blood 11/02/2023 12:3 5 AM EDT 11/02/2023 12:43 AM EDT Narrative Resulting Agency Comment Spec In Lab Rosa Cornejo MD CHEMISTRY ORDERABLE S [facility] [place] [address] * Magnesium (11/02/2023 12:35 AM EDT) Pathologist [facility] Magnesium 0.87 0.69 - 1.07 mmol/L [facility] Blood 11/02/2023 12:3 5 AM EDT 11/02/2023 12:43 AM EDT Narrative Resulting Agency Comment Spec In Lab Rosa Cornejo MD CHEMISTRY ORDERABLE S Performing Organization Address City/[facility]/ZIP Co de Phone Number [facility] [place] [address] * Basic Metabolic Panel (non-fasting) (11/02/2023 12:35 [...] MD CHEMISTRY ORDERABLE S [facility] [place] [address] * Blood culture (11/02/2023 12:35 AM EDT) Blood Culture No growth at 5 days. [facility] Blood 11/02/2023 12:3 5 AM EDT 11/02/2023 1:55 AM EDT Comment:#2 site ukn Narrative Resulting Agency Comment Spec In Lab Rosa Hugo MD MICROBIOLOGY - BLO OD ORDERABLES [facility] [place] [address] * Blood culture (11/02/2023 12:15 AM EDT) Blood Culture No growth at 5 days. [facility] Blood 11/02/2023 12:1 5 AM EDT 11/02/2023 1:54 AM EDT Comment:#1site unk Narrative Resulting Agency Comment Spec In Lab Rosa Hugo MD MICROBIOLOGY - BLO OD ORDERABLES Performing Organization Address City/[facility]/ZIP Co de Phone Number [facility] [place] [address] * EKG 12 Lead (11/01/2023 10:10 PM EDT) Ventricular rate 139 BPM MUSE SYSTEM Atrial Rate 139 BPM MUSE SYSTEM P-R Interval 168 ms MUSE SYSTEM QRS Duration 84 ms MUSE SYSTEM Q-T Interval 286 ms MUSE SYSTEM QTC Calculated (Bezet) 435 ms MUSE SYSTEM Calculated R [place] -59 degrees MUSE SYSTEM Calculated T [place] -27 degrees MUSE SYSTEM INTERPRETATION Mid-RP tachycardia, [...] interpretation Confirmed by fellow MD Andrés, Enriqueta ([id number]) on 11/04/2023 7:57:50 AM Confirmed by MD Gerardo, Shameka ([id number]) on 11/04/2023 4:32:03 PM MUSE SYSTEM 11/01/2023 10:1 0 PM EDT 11/04/2023 4:32 PM EDT Rosa Cornejo MD ECG ORDERABLES Performing Organization Address City/[facility]/ZIP Co de Phone Number MUSE SYSTEM [...] HOSPITAL LABORATORY Platelet 197 145 - 357 x10(3)/[facility] LABORATORY RDW Standard Deviation 54.0(H) 37.0 - 46.0 fL [facility] RDW coefficient of variation 14.6(H) 11.5 - 14.1 % [facility] Mean Platelet Volume 11.2 7.6 - 12.9 fL [facility] NRBC% auto 0.0 % [facility] NRBC Absolute 0.000 0.000 - 0.000 x10(3)/[facility] LABORATORY Blood 11/01/2023 10:0 6 PM EDT 11/01/2023 10:22 PM EDT Narrative Resulting Agency Comment Spec In Lab Rosa Hugo MD HEMATOLOGY ORDERAB LES [facility] [place] [address] * POCT Glucose (11/01/2023 5:59 PM EDT) Glucose, POC 104 65 - 199 mg/dL [facility] Comment: Supplemental ranges: <140 mg/dL before meals <180 mg/dL all other times of the day Blood 11/01/2023 5:59 PM EDT 11/01/2023 5:59 PM EDT Rosa Hugo MD POINT OF CARE TEST ORDERABLES [facility] [place] [address] * POCT Glucose (11/01/2023 5:35 PM EDT) Glucose, POC 85 65 - 199 mg/dL [facility] Comment: Supplemental ranges: <140 mg/dL before meals <180 mg/dL all other times of the day Blood 11/01/2023 5:35 PM EDT 11/01/2023 5:35 PM EDT Rosa Hugo MD POINT OF CARE TEST ORDERABLES Performing Organization Address City/[facility] Co de Phone Number [facility] [place] [address] * EKG 12 Lead (11/01/2023 3:22 PM EDT) Ventricular rate 59 BPM MUSE SYSTEM Atrial Rate 59 BPM MUSE SYSTEM P-R Interval 220 ms MUSE SYSTEM QRS Duration 94 ms MUSE SYSTEM Q-T Interval 428 ms MUSE SYSTEM QTC Calculated (Bezet) 423 ms MUSE SYSTEM Calculated P [place] 76 degrees MUSE SYSTEM Calculated R [place] -50 degrees MUSE SYSTEM Calculated T [place] -59 degrees MUSE SYSTEM INTERPRETATION Sinus bradycardia [...] Modality Other Narrative 11/02/2023 4:57 PM EDT ?[facility] ? Cardiac Catheterization/Intervention Report ? Patient Name: Joleen, Adin Catherine. ? Procedure Date: 11/01/2023 ? A #: [id number] ? Primary Physician: Rosa Dewey I ? Case #: [id number] ? File Name: [id number] ? Catheterization Order Number: [id number] ? [facility] [place] [facility] ? Final Report [place], [place] ? Patient Name: ? Adin Townsendjosue ?ID#: ?[id number] ? : ?1940 ? Procedure Date: ? [...] to Procedure: ? Aspirin, Angiotensin II Receptor Kirsty and Statin. ? Indications for Diagnostic Cath: ?The priority of the diagnostic procedure was Urgent. The indication for ?the incinerator plant laborer visit is ACS greater than 24 [...] ??A premounted ? 3.50 x 15 mm [place] (RADHA) was deployed with a maximum ? [...] ? A premounted 3.50 x 15 mm [place] (RADHA) was deployed ? with a maximum [...] dose administered prior to arrival in the incinerator plant laborer. ?Recommended anti-platelet/anti-thrombotic regimen: ?Continue aspirin 81 mg daily for indefinitely. ?Continue clopidogrel 75 mg daily for 12 months then stop. ?These recommendations are made at the time of the intervention. Patient ?and provider preferences or a changing clinical situation may require ?modification of this regimen. Consult [facility] Interventional Cardiology for ?questions. ?The 1 year [...] Note Otto, Rosa I, MD - 12/12/2023 [facility] Cardiac Catheterization/Intervention Report Patient Name: Adin Santos Procedure Date: 11/01/2023 A #: [id number] Primary Physician: Rosa Dewey I Case #: [id number] File Name: [id number] Catheterization Order Number: [id number] [facility] FinalReport [place], [place] Patient Name: Adin Santos ID#:[id number] :1940 Procedure Date: November 01, 2023 Case [...] diagnostic procedure was Urgent. 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 Apremounted 3.50 x 15 mm [place] (RADHA) was deployed with amaximum inflation pressure [...] The lesion was predilated with a 3.00mm [id number] MM balloon with a maximum inflation pressure of 14atmospheres. A premounted 3.50 x 15 mm Andrea Roberts (RADHA) wasdeployed with a maximum inflation pressure [...] dose administered prior to arrival in the incinerator plant laborer. Recommended anti-platelet/anti-thrombotic regimen: Continue aspirin 81 mg daily for indefinitely. Continue clopidogrel 75 mg daily for 12 months then stop. These recommendations are made at the time of the intervention.Patient and provider preferences or a changing clinical situation mayrequire modification of this regimen. Consult [facility] Interventional Cardiologyfor questions. The 1 year bleeding [...] * POCT Glucose (11/01/2023 7:06 AM EDT) [facility] Glucose, POC 93 65 - 199 mg/dL [facility] Comment: Supplemental ranges: <140 mg/dL before meals <180 mg/dL all other times of the day Blood 11/01/2023 7:06 AM EDT 11/01/2023 7:06 AM EDT Jean Laboy MD POINT OF CARE TEST O RDERABLES [facility] [place] [address] * (ABNORMAL) Differential, Automated (11/01/2023 3:09 AM EDT) [facility] Neutrophil % 63.9 % [facility] Neutrophil Absolute 5.54 1.70 - 6.10 x10(3)/mc L [facility] Lymph % 20.0 % [facility] Lymphocytes Abs 1.7 0.9 - 3.2 x10(3)/mc L [facility] Monocyte % 11.9 % [facility] Monocyte Abs 1.0(H) 0.3 - 0.9 x10(3)/mc L [facility] Eos % 3.2 % [facility] Eosinophils Abs 0.3 0.0 - 0.4 x10(3)/mc L [facility] Basophil % 0.5 % [facility] [...] HEMATOLOGY ORDERABLE S Performing Organization Address City/State/[facility] Co de Phone Number [facility] [place] [address] * (ABNORMAL) Hemogram (11/01/2023 3:09 AM EDT) [...] [facility] NRBC% auto 0.0 % [facility] NRBC Absolute 0.000 0.000 - 0.000 x10(3)/mc L [facility] Blood 11/01/2023 3:09 AM EDT 11/01/2023 3:29 AM EDT Narrative Resulting Agency Comment Spec In Lab Qamar Gallardo MD HEMATOLOGY ORDERABLE S Performing Organization Address City/[facility]/ZIP Co de Phone Number [facility] [place] [address] * Phosphorus (11/01/2023 3:09 AM EDT) Phosphorus 2.5 2.5 - 4.5 mg/dL [facility] Blood 11/01/2023 3:09 AM EDT 11/01/2023 3:29 AM EDT Narrative Resulting Agency Comment Spec In Lab Rosa Cornejo MD CHEMISTRY ORDERABLE S Performing Organization Address City/[facility]/ZIP Co de Phone Number [facility] [place] [address] * Magnesium (11/01/2023 3:09 AM EDT) Magnesium 0.82 0.69 - 1.07 mmol/L [facility] Blood 11/01/2023 3:09 AM EDT 11/01/2023 3:29 AM EDT Narrative Resulting Agency Comment Spec In Lab Rosa Cornejo MD CHEMISTRY ORDERABLE S Performing Organization Address City/[facility]/ZIP Co de Phone Number [facility] [place] [address] * (ABNORMAL) Basic Metabolic Panel (non-fasting) (11/01/2023 [...] MD CHEMISTRY ORDERABLE S [facility] [place] [address] * (ABNORMAL) Troponin (10/31/2023 2:46 PM EDT) [...] troponin value can be found in the [facility] Laboratory Test Catalog Troponin - [facility] Laboratory Test Catalog Reference: Fourth [place] Definition of Myocardial Infarction. Journal of the [place] College [employer] 2018;72:1661-6232 Blood 10/31/2023 2:46 PM EDT 10/31/2023 2:55 PM EDT Narrative Resulting Agency Comment Spec In Lab Jean Laboy MD CHEMISTRY ORDERABLES [facility] [place] [address] * EKG 12 Lead (10/31/2023 1:07 PM EDT) Ventricular rate 54 BPM MUSE SYSTEM Atrial Rate 54 BPM MUSE SYSTEM P-R Interval 218 ms MUSE SYSTEM QRS Duration 92 ms MUSE SYSTEM Q-T Interval 540 ms MUSE SYSTEM QTC Calculated (Bezet) 512 ms MUSE SYSTEM Calculated P [place] 85 degrees MUSE SYSTEM Calculated R [place] -44 degrees MUSE SYSTEM Calculated T [place] -69 degrees MUSE SYSTEM INTERPRETATION Sinus bradycardia [...] troponin value can be found in the [facility] Laboratory Test Catalog Troponin - [facility] Laboratory Test Catalog Reference: Fourth [place] Definition of Myocardial Infarction. Journal of the [place] College [employer] 2018;72:3702-7711 Blood 10/31/2023 11:3 7 AM EDT 10/31/2023 11:50 AM EDT Narrative Resulting Agency Comment Spec In Lab Rosa Cornejo MD CHEMISTRY ORDERABLE S Performing Organization Address [facility]/State/ZIP Co de Phone Number [facility] [place] [address] * ECHO COMPLETE (10/31/2023 8:52 AM EDT) Anatomical Region Laterality Modality Cardiac Other 10/31/2023 7:57 AM EDT Narrative 10/31/2023 9:45 AM EDT [address] [place] [address] ? Echocardiogram Report Name: ADIN SANTOS ? Study Date: 10/31/2023 07:57 AMBP: 106/76 mmHg ? Patient Location: [id number] A : 1940 ? Height: 163 cm ? Account: [id number] Age: 83 yrs ? Weight: 76 kg Gender: Female ?BSA: 1.8 m2 Ordering Physician: ROSA DEWEY Referring Physician: OMAIRA GIRON Performed By: HAFSA Carmichael Reason For Study: STEMI Interpreting Fellow: Raymond Warren. Exam Location: [facility]. Interpretation Summary -The left [...] is no prior echocardiogram for comparison. Procedure Complete-53078. Satisfactory quality. There is sinus bradycardia. Left [...] Note Edgard Wang MD - 10/31/2023 [address] [place] [address] Echocardiogram Report Name: ADIN SANTOS Study Date: 407:57 AMBP: 106/76 mmHg Patient Location: [id number] A : 1940 Height: 163 cm Account: [id number] Age: 83 yrs Weight: 76 kg Gender: Female BSA: 1.8 m2 Ordering Physician: ROSA DEWEY Referring Physician: OMAIRA GIRON Performed By: HAFSA Carmichael Reason For Study: STEMI Interpreting Fellow: Raymond Warren. Exam Location: [facility]. Interpretation Summary -The left [...] is no prior echocardiogram for comparison. Procedure Complete-10173. Satisfactory quality. There is sinus bradycardia. Left [...] troponin value can be found in the [facility] Laboratory Test Catalog Troponin - [facility] Test Catalog Reference: Fourth [place] Definition of Myocardial Infarction. Journal of the [place] College of Cardiology 2018;72:5753-9462 Blood 10/31/2023 8:51 AM EDT 10/31/2023 9:12 AM EDT Narrative Resulting Agency Comment Spec In Lab Rosa Cornejo MD CHEMISTRY ORDERABLE S [facility] [place] [address] * CARDIAC CATHETERIZATION (10/31/2023 8:10 AM EDT) Anatomical Region Laterality Modality Other Narrative 11/07/2023 9:42 AM EDT ?[facility] ? Cardiac Catheterization/Intervention Report ? Patient Name: Adin Santos. ? Procedure Date: 10/30/2023 ? A #: [id number] ? Primary Physician: Rosa Dewey I ? Case #: [id number] ? File Name: [id number] ? Catheterization Order Number: [id number] ? [facility] ? Final Report [place], [place] ? Patient Name: ? Adin M. Goguen ?ID#: ?[id number] ? : ?1940 ? Procedure Date: ? [...] procedure was Emergent. The indication for ?the incinerator plant laborer visit is ACS less than or [...] ? A premounted 4.00 x 38 mm [place] (RADHA) was deployed ? with a maximum [...] dose administered prior to arrival in the incinerator plant laborer. ?Recommended anti-platelet/anti-thrombotic regimen: ?Continue aspirin 81 mg daily for 12 months then stop. ?Continue clopidogrel 75 mg daily for indefinitely. ?These recommendations are made at the time of the intervention. Patient ?and provider preferences or a changing clinical situation may require ?modification of this regimen. Consult [facility] Interventional Cardiology for ?questions. ? Conclusions: ?* [...] Procedure Note Rosa Dewey MD - 12/05/2023 [facility] Cardiac Catheterization/Intervention Report Patient Name: Adin Santos Procedure Date: 10/30/2023 A #: [id number] Primary Physician: Rosa Dewey I Case #: [id number] File Name: [id number] Catheterization Order Number: [id number] [facility] FinalReport [place], [place] Patient Name: Adin CatherineYasir Edvinree ID#:[id number] :1940 Procedure Date: October 30, 2023 Case #: [id number] Room: 5 Case Physician: Rosa Dewey M.D. [...] designated as ASA Class III. The [facility] clinical frailtyscale is 5: Mildly Frail. Diagnostic Tests: Electrocardiography: EKG was assessed by ECG. EKG was Abnormal. EKG showed STDeviation >= 0.5 mm, other abnormality and dynamic EKG changes. Medications Prior to Procedure: Aspirin, Angiotensin II Receptor Kristy, Beta Kristy andStatin. Indications for Diagnostic Cath: The priority of the diagnostic procedure was Emergent. Theindication for the incinerator plant laborer visit is ACS less than or [...] priority for the procedure was Emergent.The [facility] indication for the procedure was [...] 16atmospheres. A premounted 4.00 x 38 mm [place] (RADHA) wasdeployed with a maximum inflation pressure [...] dose administered prior to arrival in the incinerator plant laborer. Recommended anti-platelet/anti-thrombotic regimen: Continue aspirin 81 mg daily for 12 months then stop. Continue clopidogrel 75 mg daily for indefinitely. These recommendations are made at the time of the intervention.Patient and provider preferences or a changing clinical situation mayrequire modification of this regimen. Consult [facility] Interventional Cardiologyfor questions. Conclusions: * Two vessel [...] Rosa Dewey M.D. Electronically Signed by: Rosa Deewy M.D. Report Finalized: 11/07/2023 09:36 Report Last Ammended: 12/05/2023 09:12 Rosa Cornejo MD CARDIAC CATH ORDERA BLES * (ABNORMAL) Troponin (10/31/2023 4:21 AM EDT) [facility] Troponin-T, High Sensitivity 457(H) <=14 ng/L [facility] [...] troponin value can be found in the [facility] Laboratory Test Catalog Troponin - [facility] Test Catalog Reference: Fourth [place] Definition of Myocardial Infarction. Journal of the [place] College of Cardiology 2018;72:6522-0151 Blood 10/31/2023 4:21 AM EDT 10/31/2023 4:30 AM EDT Narrative Resulting Agency Comment Spec In Lab Rosa Cornejo MD CHEMISTRY ORDERABLE S [facility] [place] [address] * (ABNORMAL) Differential, Automated (10/31/2023 3:05 AM EDT) Neutrophil % 71.7 % [facility] Neutrophil Absolute 8.21(H) 1.70 - 6.10 x10(3)/mc L [facility] Lymph % 16.9 % [facility] Lymphocytes Abs 1.9 0.9 - 3.2 x10(3)/mc L [facility] Monocyte % 9.4 % [facility] Monocyte Abs 1.1(H) 0.3 - 0.9 x10(3)/mc L [facility] Eos % 1.3 % [facility] Eosinophils Abs 0.2 0.0 - 0.4 x10(3)/mc L [facility] Basophil % 0.4 % [facility] [...] MD HEMATOLOGY ORDERABLE S [facility] [place] [address] * (ABNORMAL) Hemogram (10/31/2023 3:05 AM EDT) White Blood Cell 11.5(H) 4.0 - 9.5 x10(3)/ L [facility] Red Blood Cell 3.75(L) 4.00 - 5.21 x10(6)/[facility]ORY Hemoglobin 12.6 11.7 - [...] Medical Center LAB[facility]ATORY NRBC% auto 0.0 % [facility] NRBC Absolute 0.000 0.000 - 0.000 x10(3)/ L [facility] Blood 10/31/2023 3:05 AM EDT 10/31/2023 3:13 AM EDT Narrative Resulting Agency Comment Spec In Lab Qamar Gallardo MD HEMATOLOGY ORDERABLE S Performing Organization Address [facility] Co de Phone Number [facility] [place] [address] * (ABNORMAL) APTT (10/31/2023 3:05 AM EDT) [...] ORDERABL ES Performing Organization Address [facility] de Phone Number [facility] [place] [address] * (ABNORMAL) Prothrombin Time (10/31/2023 3:05 AM [...] ORDERABL ES Performing Organization Address [facility] Co de Phone Number [place] [address] * (ABNORMAL) Differential, Automated (10/31/2023 1:37 AM EDT) Pathologist [facility] Neutrophil % 71.1 % [facility] Neutrophil Absolute 7.53(H) 1.70 - 6.10 x10(3)/ L [facility] Lymph % 18.0 % [facility] Lymphocytes Abs 1.9 0.9 - 3.2 x10(3)/ L [facility] Monocyte % 8.7 % [facility] Monocyte Abs 0.9 0.3 - 0.9 x10(3)/[facility] Eos % 1.6 % [facility] Eosinophils Abs 0.2 0.0 - 0.4 x10(3)/[facility] Basophil % 0.4 % [facility] Baso Absolute 0.0 0.0 - 0.1 x10(3)/[facility] Immature Gran % 0.20 % [facility] [...] MD HEMATOLOGY ORDERABLE S [facility] [place] [address] * (ABNORMAL) Hemogram (10/31/2023 1:37 AM EDT) Pathologist [facility] White Blood Cell 10.6(H) 4.0 - 9.5 [...] [facility] NRBC% auto 0.0 % [facility] NRBC Absolute 0.000 0.000 - 0.000 x10(3)/ L [facility] Blood 10/31/2023 1:37 AM EDT 10/31/2023 1:46 AM EDT Narrative Resulting Agency Comment Spec In Lab Qamar Gallardo MD HEMATOLOGY ORDERABLE S [facility] [place] [address] * Phosphorus (10/31/2023 1:37 AM EDT) Phosphorus 3.2 2.5 - 4.5 mg/dL [facility] Blood 10/31/2023 1:37 AM EDT 10/31/2023 1:46 AM EDT Narrative Resulting Agency Comment Spec In Lab Rosa Cornejo MD CHEMISTRY ORDERABLE S [facility] [place] [address] * Magnesium (10/31/2023 1:37 AM EDT) Pathologist [facility] Magnesium 0.83 0.69 - 1.07 mmol/L [facility] Blood 10/31/2023 1:37 AM EDT 10/31/2023 1:46 AM EDT Narrative Resulting Agency Comment Spec In Lab Rosa Cornejo MD CHEMISTRY ORDERABLE S Performing Organization Address [facility] Co de Phone Number [facility] [place] [address] * Basic Metabolic Panel (non-fasting) (10/31/2023 1:37 AM EDT) Pathologist [facility] Glucose 114 65 - 199 mg/dL [facility] [...] MD CHEMISTRY ORDERABLE S [facility] [place] [address] * (ABNORMAL) Troponin (10/31/2023 1:37 AM EDT) [...] troponin value can be found in the [facility] Test Catalog Troponin - [facility] Test Catalog Reference: Fourth [place] Definition of Myocardial Infarction. Journal of the [place] College of Cardiology 2018;72:4498-4071 Blood 10/31/2023 1:37 AM EDT 10/31/2023 1:46 AM EDT Narrative Resulting Agency Comment Spec In Lab Rosa Cornejo MD CHEMISTRY ORDERABLE S Performing Organization Address [facility]/ZIP Co de Phone Number [facility] [place] [address] * EKG 12 Lead (10/31/2023 1:20 AM EDT) Ventricular rate 52 BPM MUSE SYSTEM Atrial Rate 52 BPM MUSE SYSTEM P-R Interval 224 ms MUSE SYSTEM QRS Duration 108 ms MUSE SYSTEM Q-T Interval 544 ms MUSE SYSTEM QTC Calculated (Bezet) 505 ms MUSE SYSTEM Calculated P [place] 90 degrees MUSE SYSTEM Calculated R [place] -57 degrees MUSE SYSTEM Calculated T [place] -63 degrees MUSE SYSTEM INTERPRETATION Sinus bradycardia [...] Cornejo MD ECG ORDERABLES Performing Organization Address City/[facility]/ZIP Co de Phone Number MUSE SYSTEM * EKG 12 Lead (10/30/2023 10:40 PM EDT) Ventricular rate 55 BPM MUSE SYSTEM Atrial Rate 55 BPM MUSE SYSTEM P-R Interval 232 ms MUSE SYSTEM QRS Duration 102 ms MUSE SYSTEM Q-T Interval 520 ms MUSE SYSTEM QTC Calculated (Bezet) 497 ms MUSE SYSTEM Calculated P [place] 75 degrees MUSE SYSTEM Calculated R [place] -53 degrees MUSE SYSTEM Calculated T [place] -57 degrees MUSE SYSTEM INTERPRETATION Sinus bradycardia with 1st degree A-V block Left anterior fascicular block Moderate voltage criteria for LVH, may be normal variant ( R in aVL , [place] product ) T wave abnormality, consider inferior [...] Chest One View (10/30/2023 10:10 PM EDT) [employer] WORKSTATION ID [id number] DH RAD Anatomical Region Laterality Modality Chest [...] and low lung volumes. Findings similar to floor layer tile radiograph from CT 10/30/2023. Thank you for letting us participate in the care of this patient. ??If you are a health care provider and have any questions regarding this report, please contact the number below. ??For patients who have questions please contact the health healthcare technician that requested your imaging first. ? [...] and low lung volumes. Findings similar to floor layer tile radiograph from CT 10/30/2023. Thank you for letting us participate in the care of this patient. If youare a health care provider and have any questions regarding this report,please contact the number below. For patients who have questions please contactthe health healthcare technician that requested your imaging first. Rosa Cornejo MD IMG DX ORDERABLES * Green Tube HOLD (10/30/2023 10:05 PM EDT) Pathologist [facility] Green Hold Sample in lab. [facility] Blood Venous Draw / Unknown 10/30/2023 10:05 PM EDT 10/30/2023 10:13 PM EDT Qamar Gallardo MD CHEMISTRY ORDERABLES [facility] [place] [address] * (ABNORMAL) Differential, Automated (10/30/2023 10:05 PM EDT) Pathologist [facility] Neutrophil % 76.6 % [facility] Neutrophil Absolute 6.94(H) 1.70 - 6.10 x10(3)/mc L [facility] Lymph % 15.4 % [facility] Lymphocytes Abs 1.4 0.9 - 3.2 x10(3)/mc L [facility] Monocyte % 6.1 % [facility] Monocyte Abs 0.6 0.3 - 0.9 x10(3)/mc L [facility] Eos % 1.1 % [facility] Eosinophils Abs 0.1 0.0 - 0.4 x10(3)/mc L [facility] Basophil % 0.6 % [facility] [...] MD HEMATOLOGY ORDERABLE S [facility] [place] [address] * (ABNORMAL) Hemogram (10/30/2023 10:05 PM EDT) [...] [facility] NRBC% auto 0.0 % [facility] NRBC Absolute 0.000 0.000 - 0.000 x10(3)/mc L [facility] Blood 10/30/2023 10:0 5 PM EDT 10/30/2023 10:12 PM EDT Narrative Resulting Agency Comment Spec In Lab Qamar Gallardo MD HEMATOLOGY ORDERABLE S Performing Organization Address [facility] Co de Phone Number [facility] [place] [address] * Hemoglobin A1c (10/30/2023 10:05 PM EDT) [...] Mellitus, Diabetes Care 2013; 36: Suppl. 1, S67-63 Estimated Average Glucose See note mg/dL [facility] Comment: Estimated Average Glucose not appropriate for patients over 70 years of age. Blood 10/30/2023 10:0 5 PM EDT 10/30/2023 10:12 PM EDT Narrative Resulting Agency Comment Spec In Lab Rosa Cornejo MD CHEMISTRY ORDERABLE S Performing Organization Address [facility] Co de Phone Number [facility] [place] [address] * Lipid Panel (Reflex Direct LDL) (10/30/2023 10:05 PM EDT) Cholesterol, Total 218 mg/dL [facility] Comment: Desirable: ? <200 mg/dL Borderline High: 200-239 mg/dL Higher: ?>cc=629 mg/dL Triglyceride 46 mg/dL [facility] Comment: Normal: ?<150 mg/dL Borderline High: 150-199 mg/dL High: ?200-499 mg/dL Very High: ? >af=738 mg/dL HDL Cholesterol 64 mg/dL [facility] Comment: Females: High Risk: <50 mg/dL Males: High Risk: <40 mg/dL LDL Cholesterol 145 mg/dL [facility] Comment: Desirable: ? <100 mg/dL Above Desirable: 100-129 mg/dL Borderline High: 130-159 mg/dL High: ?160-189 mg/dL Very High: ? >uv=917 mg/dL Lipid Interpretation See Note [facility] [...] ACC/AHA Guidelines (most recently Feliciano et al. [facility] 03/23/22): For individuals with atherosclerotic cardiovascular disease (ASCVD)or LDL >cz=587 mg/dL, use a high-intensity statin (40-80 mg [...] ORDERABLE S Performing Organization Address [facility] Co de Phone Number [facility] [place] [address] * TSH Lula (10/30/2023 10:05 PM EDT) Thyroid Stimulating Hormone 3.35 0.27 - 4.20 mcIU/mL [facility] Comment: Reference Interval (mcIU/mL): Females: ??First Trimester: 0.23-3.88 ??Second Trimester: 0.22-3.90 ??Third Trimester: 0.44-4.66 Blood 10/30/2023 10:0 5 PM EDT 10/30/2023 10:12 PM EDT Narrative Resulting Agency Comment Spec In Lab Rosa Cornejo MD CHEMISTRY ORDERABLE S Performing Organization Address [facility] Co de Phone Number [facility] [place] [address] * pro-Brain Natriuretic Peptide (10/30/2023 10:05 PM EDT) NT-proBNP 375 <=449 pg/mL [facility] Blood 10/30/2023 10:0 5 PM EDT 10/30/2023 10:12 PM EDT Narrative Resulting Agency Comment Spec In Lab Rosa Cornejo MD CHEMISTRY ORDERABLE S [facility] [place] [address] * (ABNORMAL) Comprehensive metabolic panel (non-fasting) (10/30/2023 [...] MD CHEMISTRY ORDERABLE S Performing Organization Address City/[facility]/ZIP Co de Phone Number [facility] [place] [address] * Phosphorus (10/30/2023 10:05 PM EDT) Phosphorus 3.3 2.5 - 4.5 mg/dL [facility] Blood 10/30/2023 10:0 5 PM EDT 10/30/2023 10:12 PM EDT Narrative Resulting Agency Comment Spec In Lab Rsoa Cornejo MD CHEMISTRY ORDERABLE S Performing Organization Address City/[facility]/ZIP Co de Phone Number [facility] [place] [address] * Magnesium (10/30/2023 10:05 PM EDT) Magnesium 0.86 0.69 - 1.07 mmol/L [facility] Blood 10/30/2023 10:0 5 PM EDT 10/30/2023 10:12 PM EDT Narrative Resulting Agency Comment Spec In Lab Rosa Cornejo MD CHEMISTRY ORDERABLE S Performing Organization Address City/[facility]/ZIP Co de Phone Number [facility] [place] [address] * (ABNORMAL) Troponin (10/30/2023 10:05 PM EDT) [facility] Troponin-T, High Sensitivity 214(H) <=14 ng/L [facility] [...] troponin value can be found in the [facility] Test Catalog Troponin - [facility] Test Catalog Reference: Fourth [place] Definition of Myocardial Infarction. Journal of the [place] [employer] 2018;72:1100-2672 Blood 10/30/2023 10:0 5 PM EDT 10/30/2023 10:12 PM EDT Narrative Resulting Agency Comment Spec In Lab Rosa Cornejo MD CHEMISTRY ORDERABLE S [facility] [place] [address] * EKG 12 Lead (10/30/2023 8:21 PM EDT) [facility] Ventricular rate 49 BPM MUSE SYSTEM Atrial Rate 49 BPM MUSE SYSTEM P-R Interval 230 ms MUSE SYSTEM QRS Duration 96 ms MUSE SYSTEM Q-T Interval 526 ms MUSE SYSTEM QTC Calculated (Bezet) 475 ms MUSE SYSTEM Calculated P [place] 98 degrees MUSE SYSTEM Calculated R [place] -48 degrees MUSE SYSTEM Calculated T [place] -51 degrees MUSE SYSTEM INTERPRETATION Sinus bradycardia with 1st degree A-V block Incomplete right bundle branch block Left anterior fascicular block Moderate voltage criteria for LVH, may be normal variant ( R in aVL , [place] product ) T wave abnormality, consider inferior [...] Sweeney RN) 0816 (Given - Provider: Lucretia Thurmna, TANESHA) atorvastatin (Lipitor) tablet 80 mg 80 [...] Minutes 0825 (New Bag - Provider: Lucretia Thumran, TANESHA)0925 (Stopped - Provider: Lucretia Thurman RN) [...] last 24 to 72 hours., Routine 1333 ([facility] Hold - Provider: Admin Adt - Reason: Transfer to a Procedural area)1548 ([facility] Unhold - Provider: Admin Adt) sodium chloride 0.9 % (flush) (BD PosiFlush Normal Saline 0.9) flush 5-20 mL 5-20 mL, Intravenous, EVERY 1 MIN PRN, Starting on 10/30/23 at 2208, Until Amna 11/03/23 at 1913, flush, Flush pertains to all indwelling lines. Flush per protocol found in the job aid using the link provided on this medication record., Routine 1333 ([facility] Hold - Provider: Admin Adt - Reason: Transfer to a Procedural area)1548 ([facility] Unhold - Provider: Admin Adt) documented in this encounter Additional Health Concerns Infection Onset Date Last Indicated Resolved Time Rule Out Respiratory 11/02/2023 11/02/2023 024 12:22 PM EDT Rule Out COVID-19 11/02/2023 11/02/2023 11/02/2023 12:22 PM EDT documented as of this encounter Care Teams Medical Assistant Dermatology Relationship Specialty Start Date End Date Rosie Mathews MD [address] [place] [address] PCP - General Family Medicine 11/25/17 11/23/23 documented as of this encounter
--- OUTSIDE RECORDS SUMMARY | 2024-03-09 10:33 | XMS_ITS | Encounter Summary ---
Author Organization [facility] Address [facility] [place] [address] Care Team Providers Care Automotive Technician Name Role Phone Rosie Mathews MD Primary Care Provider [phone] Encounter Details Date Type Department Care Team (Late st Contact Info) Description 11/18/2023 External Results Administration [facility] [place] [address] Social History Tobacco Use Types Packs/Day Years Used Date Smoking Tobacco: Former Smokeless Tobacco: Never Alcohol Use Standard Drinks/Week Comments Not Currently 0 (1 standard drink = 0.6 oz pur e alcohol) [facility] Utilities Answer Date Recorded In [...] 11:20 AM EDT Office Visit Cardiology at [address] [phone] Izaiah Meyer MD [facility] [place] [address] documented as of this encounter Procedures Procedure Name Priority Date/Time Associated Diagnosis Comments ECG SCAN Routine 11/18/2023 4:50 PM EDT documented in this encounter Results * Scan Doc: ECG (11/18/2023 4:50 PM EDT) Historical Provider MEDIA MGR SCAN EX T ORDR/RSLT documented in this encounter Visit Diagnoses Not on filedocumented in this encounter Care Teams Automotive Technician Relationship Specialty Start Date End Date Rosie Mathews MD [address] [place] [address] PCP - General Family Medicine 11/25/17 11/23/23 documented as of this encounter
--- OUTSIDE RECORDS SUMMARY | 2024-03-09 10:33 | XMS_ITS | Encounter Summary ---
Author Organization [facility] Address [facility] [place] [address] Care Team Providers Care Park Maintainer Name Role Phone Masood Pierson MD Primary Care Provider [phone] Encounter Details Date Type Department Care Team (Late st Contact Info) Description 02/24/2024 External Results Transfer Center [facility] [place] [phone] Social History Tobacco Use Types Packs/Day Years Used Date Smoking Tobacco: Former Smokeless Tobacco: Never Alcohol Use Standard Drinks/Week Comments Not Currently 0 (1 standard drink = 0.6 oz pur e alcohol) [facility] Utilities Answer Date Recorded In the past 12 months has [employer] gas, oil, or water [email or web address] threatened to shut off services in your [...] AM EDT Office Visit Cardiology at [address] [place] [address] Izaiah Meyer MD [facility] [place] [address] documented as of this encounter Procedures Procedure Name Priority Date/Time Associated Diagnosis Comments MISC EXTERNAL CARDIOLOGY RESULT Routine 02/24/2024 11:10 PM EDT documented in this encounter Results * External Cardiology Result (02/24/2024 11:10 PM EDT) Anatomical Region Laterality Modality Other Historical Provider EXTERNAL CARDIOLO GY RESULT documented in this encounter Visit Diagnoses Not on filedocumented in this encounter Care Teams Park Maintainer Relationship Specialty Start Date End Date Masood Pierson MD [address] [place] [address] PCP - General Family Medicine 11/24/23 documented as of this encounter
--- OUTSIDE RECORDS SUMMARY | 2024-03-09 10:33 | XMS_ITS | Encounter Summary ---
Author Organization [facility] Address [facility] [place] [address] Care Team Providers Care Supervisor Cell Maintenance Name Role Phone Masood Pierson MD Primary Care Provider [phone] Reason for Visit * Reason Comments Establish Care Coronary Artery Disease Encounter Details Date Type Department Care Team (Latest Contact Info) Description 11/24/2023 10:40 AM EDT Office Visit Cardiology at [address] [place] [address] Izaiah Meyer MD [facility] [place] [address] ASCVD (arteriosclerotic cardiovascular disease); Cardiomyopathy, ischemic; Ascending aorta dilatation; Hyperpiesia Social History Tobacco Use Types Packs/Day Years Used Date Smoking Tobacco: Former Smokeless Tobacco: Never Alcohol Use Standard Drinks/Week Comments Not Currently 0 (1 standard drink = 0.6 oz pur e alcohol) [facility] Utilities Answer Date Recorded In the [...] CARDIOLOGY NEW OUTPATIENT PRIMARY CARE PROVIDER: Masood Pireson MD PROBLEM LIST: Patient Active Problem List [...] HPI: 83 f presents to [facility] cardiovascular care. She has a [...] [facility]hab. 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
--- OUTSIDE RECORDS SUMMARY | 2024-03-09 10:34 | XMS_ITS | Encounter Summary ---
Author Organization [facility] [place] [address] Care Team Providers Care Cosmetic Consultant Name Role Phone Rosie Mathews MD Primary Care Provider [phone] Reason for Visit * Auth/Cert (Routine) Specialty Diagnoses / Procedures Referred By Contac t Referred To Contact Diagnoses Unstable angina Procedures MD [employer] MD [facility] Referral ID Status Reason Start Date Expiration Date Visits Re quested Visits Authorized [id number] 1 1 Encounter Details Date Type Department Care Team (Latest Contact Info) Description 10/30/2023 5:00 PM EDT - 10/30/2023 5:10 PM EDT Hospital [place] [phone] Rosa Menjivar MD [facility] [place] [address] Discharge Disposition: Home Social History Tobacco Use Types Packs/Day Years Used Date Smoking Tobacco: Former Smokeless Tobacco: Never Alcohol Use Standard Drinks/Week Comments Not Currently 0 (1 standard drink = 0.6 oz pur e alcohol) [facility] Inpatient Questions Answer Date Recorded [...] AM EDT Office Visit Cardiology at [address] [place] [address] Izaiah Meyer MD [facility] [place] [address] documented as of this encounter Visit Diagnoses Not on filedocumented in this encounter Care Teams Cosmetic Consultant Relationship Specialty Start Date End Date Rosie Mathews MD [address] [place] [address] PCP - General Family Medicine 11/25/17 11/23/23 documented as of this encounter
--- OUTSIDE RECORDS SUMMARY | 2024-03-09 10:34 | XMS_ITS | Encounter Summary ---
Author Organization Formerly [facility] [place] [address] Care Team Providers Care Inside Sales Specialist Name Role Phone Rosie Mathews MD Primary Care Provider [phone] Reason for Visit * Auth/Cert (Routine) Specialty Diagnoses / Procedures Referred By Contbruce t Referred To Contact Diagnoses Unstable angina Chest pain NSTEMI Procedures CARDIAC CATHETERIZATION Rosa Dewey MD [facility] [place] [address] [facility] Referral ID Status Reason Start Date Expiration Date Visits Re quested Visits Authorized [id number] 1 1 Encounter Details Date Type Department Care Team (Late st Contact Info) Description 11/01/2023 3:33 PM EDT - 11/01/2023 5:03 PM EDT Surgery [place] [address] Rosa Dewey MD [facility] [address] [place], [place] [id number] CARDIAC CATHETERIZATION Social History Tobacco Use Types Packs/Day Years Used Date Smoking Tobacco: Former Smokeless Tobacco: Never Alcohol Use Standard Drinks/Week Comments Not Currently 0 (1 standard drink = 0.6 oz pur e alcohol) [facility] Utilities Answer Date Recorded In the [...] hypertension and hyperlipidemia who presented to [facility] as a transfer from [facility] as a possible STEMI alert with acute onset chest pain. The patient reports that her symptoms initially began on Tuesday when she was walking to [facility] and experienced bilateral arm heaviness while walking [...] repeat, her TRU resolved. Cardiology at [facility] was consulted for transfer; the patient was loaded with aspirin 324 mg and ticagrelor 180 mg, started on a heparin drip, and given nitroglycerin with improvement in chest pain. Upon arrival to [facility], the patient was taken directly to the Director Digital Communications. Two lesions were discovered: one in the prox RCA (felt to almost be a TRACTOR TRAILER MECHANIC but they were able to wire, balloon, [...] dose administered prior to arrival in the blood bank laboratory technician. Recommended anti-platelet/anti-thrombotic regimen: Continue aspirin [...] and low lung volumes. Findings similar to payable representative radiograph from CT 10/30/2023. Pending Studies and [...] 10:40 AM Izaiah Meyer MD Cardiology at [place] Arrive at: [facility] [address] [phone] Future Orders Complete By Expires Referral to Cardiac Rehab [[id number] Custom] As directed Process Instructions: If no progress note charted, please enter Clinical details in comments. Scheduling Instructions: Questions: My question or request is: STEMI. Cardiac rehab at [facility]. Referral to Home Health [[id number] Custom] As directed Process Instructions: If no progress note charted, please enter Clinical details in comments. Scheduling Instructions: Comments: Please evaluate Adin Santos for admission to Home Health. [address] [facility] [address] (home) Date of : 1940 Inpatient DOCUMENTATION FOR VNA SERVICES (INCLUDING THOSE PATIENTS WITH MEDICARE COVERAGE REQUIRING HOME VNA SERVICES AND/OR HOSPICE SERVICES) PATIENT'S LOCATION: dAin Santos [address] [facility] [address] (home) Cell: Telephone Information: Registered Art Therapist's Name: self In discussion with the attending physician, it is certified that this patient is under their care and that they, or a Nurse Practitioner, Clinical Nurse specialist or Physician Sailing Officer who is working directly with them, [...] regarding health issues HOME HEALTH CARE AGENCY: [facility] [address] [address] START OF CARE: within 24-48 hours of [...] Rosie Mathews MD [address] / [facility] [address] . All A agencies which cover [...] MD / Dr. Masood Pierson [address] [place] [address] 11/09/23 1:55 PM arrival for 2:10 PM appointment Knife Machine Operator: Izaiah Meyer MD [address] [place] [id number] , 11/24/2023 10:40 AM Your Inpatient Medical Team at [facility] Name(s) of your inpatient provider(s): Attending physician: Rosa Hugo MD Resident physicians: Emile Robles MD; Elmer Tamez MD If you have non-emergent questions, prior to your follow-up visit call: Tuesday-Tuesday between the hours of 8AM-5PM please call the Cardiology Clinic [phone] to speak with a nurse. All other hours please call the Hospital Emergency Management Coordinator [phone] and ask to speak to the gas tester on-call. Your Primary Care Provider Rosie Mathews MD [phone] For questions regarding this document or issues relating to this hospitalization on the Medical Service, please contact your inpatient physician through the [facility] Emergency Management Coordinator . Issues afterhours and on weekends will be handled by the Knife Machine Operator staff on-call. Associated attestation - Rosa [...] Mathews MD / Dr. Masood Pierson [address] [place] [id number] 11/09/23 1:55 PM arrival for 2:10 PM appointment Knife Machine Operator: Izaiah Meyer MD [address] [place] [address] , 11/24/2023 10:40 AM Your Inpatient Medical Team at [facility] Name(s) of your inpatient provider(s): Attending physician: Rosa Hugo MD Resident physicians: Emile Robles MD; Elmer Tamez MD If you have non-emergent questions, prior to your follow-up visit call: Tuesday-Tuesday between the hours of 8AM-5PM please call the Cardiology Clinic [phone] to speak with a nurse. All other hours please call the Hospital Emergency Management Coordinator [phone] and ask to speak to the gas tester on-call. Your Primary Care Provider Rosie Mathews MD [phone] documented in this encounter Medications at Time [...] hypertension and hyperlipidemia who presented to [facility] as a transfer from [facility] [...] hypertension and hyperlipidemia who presented to [facility] as a transfer from [facility] [...] Resident on Cardiology Service Cardiology S1 (Pager [phone]) Note written in conjunction with Claudio Perla [facility] Medical Student, MS3 Associated attestation - [...] Nirmala Webb - 11/01/2023 11:25 AM EDT Leaflet Or Newspaper Deliverer Encounter Note Patient Name: Adin Santos : [id number] MR#: [id number] Admit Date: 10/30/2023 5:11 PM Hospital Day 2 days Narrative: Self initiated visit to patient for Spiritual support in a regular unit rounds. Assessment: Patient is in the bathroom at the time of this visit. Not a good time for Shirt Folder visit. Intervention and Outcome: An attempted visit [...] hypertension and hyperlipidemia who presented to [facility] as a transfer from [facility] [...] and low lung volumes. Findings similar to payable representative radiograph from CT 10/30/2023. Scheduled Medications: [AUG [...] hypertension and hyperlipidemia who presented to [facility] as a transfer from [facility] [...] Resident on Cardiology Service Cardiology S1 (Pager [phone]) Note written in conjunction with Claudio Perla [facility] Medical Student, MS3 Associated attestation - [...] hypertension and hyperlipidemia who presented to [facility] as a transfer from [facility] as a possible STEMI alert with acute onset chest pain. Active Problems: Active Hospital Problems Diagnosis Unstable angina Resolved Hospital Problems No resolved problems to display. 24 hr events: - Cath'd yesterday with lesion in the proximal RCA (initially thought it was TRACTOR TRAILER MECHANIC but they were ableto wire, balloon and [...] and low lung volumes. Findings similar to payable representative radiograph from CT 10/30/2023. TTE (10/30): Interpretation [...] hypertension and hyperlipidemia who presented to [facility] as a transfer from [facility] [...] Resident on Cardiology Service Cardiology S1 (Pager [phone]) Note written in conjunction with Claudio Perla [facility] Medical Student, MS3 Associated attestation - [...] PCP: Rosie Mathews MD PCP phone number: [phone] Date of Admission: 10/30/2023 ( Hospital Day 0 days ) Attending:Rosa Cornejo MD ID: Adin Santos is a 83 y.o. female PMH significant for hypertension and hyperlipidemia who presented to [facility] as a transfer from [facility] as a possible STEMI alert with acute onset chest pain. The patient reports that her symptoms initially began on Tuesday when she was walking to [facility] and experienced bilateral arm heaviness while walking [...] repeat, her TRU resolved. Cardiology at [facility] was consulted for transfer; the patient was loaded with aspirin 324 mg and ticagrelor 180 mg, started on a heparin drip, and given nitroglycerin with improvement in chest pain. Upon arrival to [facility], the patient was taken directly to the Director Digital Communications. 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 Findings similar to payable representative radiograph from CT 10/30/2023. Assessment & Plan: Adin Santos is a 83 y.o. female PMH significant for hypertension and hyperlipidemia who presented to [facility] as a transfer [facility] [...] with HTN HLD transferred with chest from [facility]. BP 217/68, HR 71 EKG with [...] information for follow-up Home Health & Hospice, [place] [address] TANESHA BOYCE confirmed with [facility] that they will see the patient [...] N/A Patient is insured through: Primary Insurance: [employer] MANAGED MEDICARE Payor: [employer] MANAGED MEDICARE / Plan: [employer] MANAGED MEDICARE PPO / Product Type: *No [...] in the room. Electrolytes replaced, see MAR. ballistics laboratory gunsmith sites remained C/D/I with baseline ecchymosis unchanged. Pt complained of back pain, lidocaine patch given. Right IV infiltrated during infusion, patient is marked with sharpie, IV removed. See flowsheet for I+O's and safety rounding. Patient is able to make needs known and call capps within reach. PLAN MOVING FORWARD: Monitor Tele, control BP, monitor blood bank laboratory technician sites, D/C Planning INDIVIDUALIZED FALL [...] in an outpatient cardiac rehabilitation program at [facility] was discussed. Patient agrees to a [...] and above on RA. PT went to blood bank laboratory technician today. Left fem site oozed [...] MOVING FORWARD: Monitor Tele, control BP, monitor blood bank laboratory technician sites, D/C Planning INDIVIDUALIZED FALL [...] Admitted From: Transfer from another hospital Location: [facility] Reason for Hospitalization: chest pain Covid Vaccination Status: 1st, 2nd & booster Past medical History: No past medical history on file. Hospitalizations Within the Past 30 Days: no previous admission in last 30 days Current Decision-Making Capacity: Self If AD's have not been completed the following surrogate would be surrogate decision maker per [place] decision making law. (Only good for 180 days) Any patient receiving care in [place] must abide by [place] law. The hierarchy for surrogate decision making [...] has the electric, gas, oil, or water [employer] threatened to shut off services in your [...] toilet seat Home Address confirmed as: [address] [facility] [address] Social & Family Supports: All names listed below confirmed with patient as current and correct Extended Emergency Contact Information Primary Emergency Contact: Iris Downing Address: [address], [place] [id number] [place] [address] Mobile Relation: Child Secondary Emergency Contact: Karen More Address: [address] Mobile Relation: Child Current Care Provided by: self Provides Primary Care For: no one Caregiver if needed: child(emmanuel), adult Quality of Family relationships: involved, supportive Community Resources being provided currently: other (see comments) (receives [facility] services at home (1xweekly)) Behavioral [...] Specific Information: N/A Health/Prescription Coverage: Primary Insurance: [employer] MANAGED MEDICARE Payor: [employer] MANAGED MEDICARE / Plan: [employer] MANAGED MEDICARE PPO / Product Type: *No Product type* / Secondary Insurance: N/A Prescription Coverage: Yes Preferred Pharmacy: [id number] - [place], [place] - [address] [place] [id number] Status: Patient is a : No Primary Care Provider listed: Masood Pierson MD [phone] Patient/Caregiver Goals of Treatment: home when MR Potential Needs for Transition of Care: home health care Agency Referrals: Not Applicable I have met with the patient to: discuss discharge planning needs. provide the [facility], Office of Care Management letter from the Wastewater Project Manager pertaining to rehab referrals. provide a letter describing our affiliations within the [facility] and educate about their right to choose where referrals are sent. provide a list of Home Health Agencies / Durable Medical Equipment vendors which serve their preferred geographic area. provided patient with [facility] Star Quality Rating handout. They have requested referrals to: [facility] [address] [place] [address] Note routed to a Gate Mortiser Operator who will communicate referrals to facilities [...] results. PO hydralazine added for BP control. ballistics laboratory gunsmith sites remain C/D/I, ecchymosis unchanged th roughout shift. See flowsheet for I+O's and safety rounding. Patient is able to make needs known and call capps within reach. PLAN MOVING FORWARD: Monitor Tele, control CP and BP, NPO at MD for cath, monitor blood bank laboratory technician sites, D/C Planning INDIVIDUALIZED FALL [...] AM EDT Office Visit Cardiology at [address] [place] [address] Izaiah Meyer MD [facility] [place] [address] Scheduled Referrals Name Type Priority Associated Diagnoses [...] 3:46 AM EDT) Neutrophil % 63.3 % [facility] Neutrophil Absolute 5.28 1.70 - 6.10 x10(3)/mc L [facility] Lymph % 15.2 % [facility] Lymphocytes Abs 1.3 0.9 - 3.2 x10(3)/mc L [facility] Monocyte % 16.9 % [facility] Monocyte Abs 1.4(H) 0.3 - 0.9 x10(3)/mc L [facility] Eos % 3.7 % [facility] Eosinophils Abs 0.3 0.0 - 0.4 x10(3)/ L [facility] Basophil % 0.5 % [facility] Baso Absolute 0.0 0.0 - 0.1 x10(3)/mc L [facility] Immature Gran % 0.40 % [facility] Comment: Immature granulocytes(IG's)percentage and absolute count will include metamyelocytes, myelocytes, and promyelocytes. Blood smears from CBCs yielding IG's will be scanned manually for concordance. If this scan disagrees with the automated IG or if promyelocytes are noted, a manual differential will be performed. Immature Gran Absolute 0.03 0.00 - 0.04 x10(3)/mc L [facility] Blood 11/03/2023 3:46 AM EDT 11/03/2023 4:11 AM EDT Narrative Resulting Agency Comment Spec In Lab Qamar Gallardo MD HEMATOLOGY ORDERABLE S [facility] [place] [address] * (ABNORMAL) Hemogram (11/03/2023 3:46 AM EDT) White Blood Cell 8.3 4.0 - 9.5 x10(3)/mc L [facility] Red Blood Cell 3.77(L) 4.00 - 5.21 x10(6)/mc L [facility] Hemoglobin 13.1 11.7 - 15.5 g/dL [facility] Hematocrit 38.0 35.7 - 45.8 % [facility] Mean Cell Volume 100.8(H) 82.6 - 94.4 fL [facility] Mean Cell Hemoglobin 34.7(H) 27.1 - 32.0 pg [facility] Mean Cell Hemoglobin Concentration 34.5 31.7 - 35.0 g/dL [facility] Platelet 181 145 - 357 x10(3)/mc L [facility] RDW Standard Deviation 54.7(H) 37.0 - 46.0 fL [facility] RDW coefficient of variation 14.6(H) 11.5 - 14.1 % [facility] Mean Platelet Volume 11.2 7.6 - 12.9 fL [facility] NRBC% auto 0.0 % [facility] NRBC Absolute 0.000 0.000 - 0.000 x10(3)/mc L [facility] Blood 11/03/2023 3:46 AM EDT 11/03/2023 4:11 AM EDT Narrative Resulting Agency Comment Spec In Lab Qamar Gallardo MD HEMATOLOGY ORDERABLE S Performing Organization Address City/[facility]/ZIP Co de Phone Number [facility] [place] [address] * Phosphorus (11/03/2023 3:46 AM EDT) Pathologist [facility] Phosphorus 3.2 2.5 - 4.5 mg/dL [facility] Comment:result rechecked-KS Blood 11/03/2023 3:46 AM EDT 11/03/2023 4:11 AM EDT Narrative Resulting Agency Comment Spec In Lab Rosa Cornejo MD CHEMISTRY ORDERABLE S Performing Organization Address [facility] Co de Phone Number [facility] [place] [address] * Magnesium (11/03/2023 3:46 AM EDT) [facility] Magnesium 0.90 0.69 - 1.07 mmol/L [facility] Blood 11/03/2023 3:46 AM EDT 11/03/2023 4:11 AM EDT Narrative Resulting Agency Comment Spec In Lab Rosa Cornejo MD CHEMISTRY ORDERABLE S Performing Organization Address [facility] Co de Phone Number [facility] [place] [address] * (ABNORMAL) Basic Metabolic Panel (non-fasting) (11/03/2023 3:46 AM EDT) Pathologist [facility] Glucose 105 65 - 199 mg/dL [facility] Comment:Diabetes: >=200 mg/d L plus symptoms Blood Urea Nitrogen 13 8 - 18 mg/dL [facility] Creatinine 0.83 0.70 - 1.20 mg/dL [facility] Sodium 139 135 - 145 mmol/L [facility] Potassium 4.0 3.5 - 5.0 mmol/L [facility] Comment: Please note: ??Patients with WBC >100,000 may have falsely elevated Potassium levels. ??For accurate Potassium quantification in these patients send serum separator tube (gold top) for subsequent determinations. ??Contact the Clinical Chemistry Laboratory if there are any questions. Chloride 108(H) 98 - 107 mmol/L [facility] Carbon Dioxide 19(L) 22 - 31 mmol/L [facility] Anion Gap 12 5 - 15 mmol/L [facility] Calcium 8.2(L) 8.5 - 10.5 mg/dL [facility] Est Glomerular Filtration Rate 69 >=60 mL/min/1. 73 m?? [facility] Comment: This patient's estimated [...] Lab Rosa Cornejo MD CHEMISTRY ORDERABLE S [facility] [place] [address] * EKG 12 Lead (11/02/2023 12:44 PM EDT) Ventricular rate 83 BPM MUSE SYSTEM Atrial Rate 83 BPM MUSE SYSTEM P-R Interval 216 ms MUSE SYSTEM QRS Duration 90 ms MUSE SYSTEM Q-T Interval 384 ms MUSE SYSTEM QTC Calculated (Bezet) 451 ms MUSE SYSTEM Calculated P Clayton 92 degrees MUSE SYSTEM Calculated R Clayton -51 degrees MUSE SYSTEM Calculated T Clayton -33 degrees MUSE SYSTEM INTERPRETATION Sinus rhythm with 1st degree A-V block with Premature atrial complexes Left axis deviation Moderate voltage criteria for LVH, may be normal variant ( R in aVL , Ifeanyi product ) Anterolatera l infarct (cited on or before 01-NOV-2023) Abnormal ECG When compared with ECG of 01-NOV-2023 22:10, Premature atrial complexes are now Present AR interval has increased Vent. rate has decreased [...] specimen volume Bacteria, Urine Many(A) None /HPF [facility] Squamous Epithelial Cells Raw Data, Urine 10(H) <=4 /HPF [facility] Hyaline Casts, Urine 2 0 - 2 /LPF [facility] Comment: Interpret results with caution, microscopic results are from suboptimal specimen volume Clean Catch Urine 11/02/2023 11:40 AM EDT 11/02/2023 12:05 PM EDT Narrative Resulting Agency Comment Spec In Lab Elmer Tamez MD URINE ORDERABLES [facility] [place] [address] * (ABNORMAL) Urinalysis with reflex Culture (11/02/2023 11:40 AM EDT) Glucose, Urine Dipstick Negative Negative mg/dL [facility] Protein, Urine Dipstick 30(A) Negative mg/dL [facility] Bilirubin, Urine Dipstick Negative Negative mg/dL [facility] Comment: Clinical correlation required for positive Urine Bilirubin results as false positive may occur with some drugs and drug related products. If a false positive is suspected a serum total bilirubin should be considered if clinically indicated. Urobilinogen, Urine Dipstick Normal Normal mg/dL [facility] pH, Urn (dipstick) 5.5 5.0 - 8.0 [facility] Blood, Urine Dipstick Negative Negative mg/dL [facility] Ketone, Urine Dipstick Trace(A) Negative mg/dL [facility] Nitrite, Urine Dipstick Positive(A) Negative [facility] Leukocytes, Urine Dipstick Small(A) Negative [facility] Appearance, Urine Dipstick Cloudy(A) Clear [facility] Specific Colver Urine Automated >=1.030(A) 1.005 - 1.030 [facility] Color, Urine Dipstick Dark Yellow Yellow [facility] Reflex to Culture Yes [facility] Clean Catch Urine 11/02/2023 11:40 AM EDT 11/02/2023 12:04 PM EDT Narrative Resulting Agency Comment Spec In Lab Rosa Hugo MD URINE ORDERABLES [facility] [place] [address] * Respiratory Panel PCR (11/02/2023 10:15 AM EDT) Respiratory Panel Source GARMENT SEWING MACHINE OPERATOR Swab [facility] Respiratory Panel PCR Negative Negative [facility] Comment: Respiratory Panels are performed on the Ogor[employer], using multiplexed PCR nucleic acid detection. ??Negative results do not preclude respiratory infection and should not be used as the sole basis for diagnosis, treatment or other management decisions. Adenovirus Not Detected Not Detected [facility] Coronavirus HKU1 Not Detected Not Detected [facility] Coronavirus NL63 Not Detected Not Detected [facility] Coronavirus 229E Not Detected Not Detected [facility] Coronavirus OC43 Not Detected Not Detected [facility] SARS-CoV-2 Not Detected Not Detected [facility] Comment: Testing for SARS-CoV-2 (Severe acute respiratory syndrome coronavirus 2) to aid in the diagnosis of COVID-19 is performed using the [employer] Respiratory Panel 2.1 (inContact) as authorized by the FDA issued Emergency Use Authorization (EUA). This panel also tests for multiple other viral and bacterial pathogens. This assay is intended for In-vitro Diagnostic (IVD) use with nasopharyngeal swabs in viral transport media. The assay is performed based on the instructions for use and additional guidance provided by the FDA. Testing is performed in laboratories within the [facility], each of which is certified under [...] fact sheets at the following FDA website: https://www.fda.gov/medical-devices/eofbzjxptli-ujvyomw-4033-kimia-26-wyuoktcob- use-a elyfijaisutmr-odbqvoa-fifyfpq/lgwnz-obdvrvmlywm-dugo Human Metapneumovirus Not Detected Not Detected [facility] Human Rhinovirus/Enterov irus Not Detected Not Detected [facility] Influenza A Not Detected Not Detected [facility] Influenza B Not Detected Not Detected [facility] Parainfluenza 1 Not Detected Not Detected [facility] Parainfluenza 2 Not Detected Not Detected [facility] Parainfluenza 3 Not Detected Not Detected [facility] Parainfluenza 4 Not Detected Not Detected [facility] Respiratory Syncytial Virus Not Detected Not Detected [facility] Chlamydophila pneumoniae Not Detected Not Detected [facility] Mycoplasma pneumoniae Not Detected Not Detected [facility] Nasopharyngeal Swab 11/02/19 10:15 AM EDT 11/02/2023 10:49 AM EDT Narrative Resulting Agency Comment Spec In Lab Rosa Hugo MD MICROBIOLOGY - GEN ERAL ORDERABLES [facility] [place] [address] * XR Chest One View (11/02/2023 2:51 AM EDT) WORKSTATION ID [id number] RAD Anatomical Region Laterality Modality Chest N/A [...] who have questions please contact the health director of primary care that requested your imaging first. ? [...] patients who have questions please contactthe health director of primary care that requested your imaging first. Rosa Hugo MD IMG DX ORDERABLES * (ABNORMAL) Differential, Automated (11/02/2023 12:35 AM EDT) Neutrophil % 76.5 % [facility] Neutrophil Absolute 7.69(H) 1.70 - 6.10 x10(3)/mc L [facility] Lymph % 8.3 % [facility] Lymphocytes Abs 0.8(L) 0.9 - 3.2 x10(3)/mc L [facility] Monocyte % 12.9 % [facility] Monocyte Abs 1.3(H) 0.3 - 0.9 x10(3)/mc L [facility] Eos % 1.4 % [facility] Eosinophils Abs 0.1 0.0 - 0.4 x10(3)/mc L [facility] Basophil % 0.4 % [facility] Baso Absolute 0.0 0.0 - 0.1 x10(3)/mc L [facility] Immature Gran % 0.50 % [facility] Comment: Immature granulocytes(IG's)percentage and absolute count will include metamyelocytes, myelocytes, and promyelocytes. Blood smears from CBCs yielding IG's will be scanned manually for concordance. If this scan disagrees with the automated IG or if promyelocytes are noted, a manual differential will be performed. Immature Gran Absolute 0.05(H) 0.00 - 0.04 x10(3)/mc L [facility] Blood 11/02/2023 12:3 5 AM EDT 11/02/2023 12:43 AM EDT Narrative Resulting Agency Comment Spec In Lab Qamar Gallardo MD HEMATOLOGY ORDERABLE S [facility] [place] [address] * (ABNORMAL) Hemogram (11/02/2023 12:35 AM EDT) White Blood Cell 10.0(H) 4.0 - 9.5 x10(3)/ L [facility] Red Blood Cell 4.06 4.00 - 5.21 x10(6)/mc L [facility] Hemoglobin 13.8 11.7 - 15.5 g/dL [facility] Hematocrit 39.8 35.7 - 45.8 % [facility] Mean Cell Volume 98.0(H) 82.6 - 94.4 fL [facility] Mean Cell Hemoglobin 34.0(H) 27.1 - 32.0 pg [facility] Mean Cell Hemoglobin Concentration 34.7 31.7 - 35.0 g/dL [facility] Platelet 198 145 - 357 x10(3)/mc L [facility] RDW Standard Deviation 52.1(H) 37.0 - 46.0 fL [facility] RDW coefficient of variation 14.3(H) 11.5 - 14.1 % [facility] Mean Platelet Volume 11.4 7.6 - 12.9 fL [facility] NRBC% auto 0.0 % [facility] NRBC Absolute 0.000 0.000 - 0.000 x10(3)/mc L [facility] Blood 11/02/2023 12:3 5 AM EDT 11/02/2023 12:43 AM EDT Narrative Resulting Agency Comment Spec In Lab Qamar Gallardo MD HEMATOLOGY ORDERABLE S [facility] [place] [address] * (ABNORMAL) Phosphorus (11/02/2023 12:35 AM EDT) Phosphorus 1.6(L) 2.5 - 4.5 mg/dL [facility] Blood 11/02/2023 12:3 5 AM EDT 11/02/2023 12:43 AM EDT Narrative Resulting Agency Comment Spec In Lab Rosa Cornejo MD CHEMISTRY ORDERABLE S Performing Organization Address City/[facility]/ZIP Co de Phone Number [facility] [place] [address] * Magnesium (11/02/2023 12:35 AM EDT) Magnesium 0.87 0.69 - 1.07 mmol/L [facility] Blood 11/02/2023 12:3 5 AM EDT 11/02/2023 12:43 AM EDT Narrative Resulting Agency Comment Spec In Lab Rosa Cornejo MD CHEMISTRY ORDERABLE S Performing Organization Address City/[facility]/ZIP Co de Phone Number [facility] [place] [address] * Basic Metabolic Panel (non-fasting) (11/02/2023 12:35 AM EDT) Glucose 125 65 - 199 mg/dL [facility] Comment:Diabetes: >=200 mg/d L plus symptoms Blood Urea Nitrogen 9 8 - 18 mg/dL [facility] Creatinine 0.83 0.70 - 1.20 mg/dL [facility] Sodium 136 135 - 145 mmol/L [facility] Potassium 3.6 3.5 - 5.0 mmol/L [facility] Comment: Please note: ??Patients with WBC >100,000 may have falsely elevated Potassium levels. ??For accurate Potassium quantification in these patients send serum separator tube (gold top) for subsequent determinations. ??Contact the Clinical Chemistry Laboratory if there are any questions. Chloride 102 98 - 107 mmol/L [facility] Carbon Dioxide 25 22 - 31 mmol/L [facility] Anion Gap 9 5 - 15 mmol/L [facility] Calcium 9.0 8.5 - 10.5 mg/dL [facility] Est Glomerular Filtration Rate 69 >=60 mL/min/1. 73 m?? [facility] Comment: This patient's estimated [...] Lab Rosa Cornejo MD CHEMISTRY ORDERABLE S [facility] [place] [address] * Blood culture (11/02/2023 12:35 AM EDT) Blood Culture No growth at 5 days. [facility] Blood 11/02/2023 12:3 5 AM EDT 11/02/2023 1:55 AM EDT Comment:#2 site ukn Narrative Resulting Agency Comment Spec In Lab Rosa Hugo MD MICROBIOLOGY - BLO OD ORDERABLES Performing Organization Address City/[facility]/ZIP Co de Phone Number [facility] [place] [address] * Blood culture (11/02/2023 12:15 AM EDT) Blood Culture No growth at 5 days. [facility] Blood 11/02/2023 12:1 5 AM EDT 11/02/2023 1:54 AM EDT Comment:#1site unk Narrative Resulting Agency Comment Spec In Lab Rosa Hugo MD MICROBIOLOGY - BLO OD ORDERABLES Performing Organization Address [facility] Co de Phone Number [facility] [place] [address] * EKG 12 Lead (11/01/2023 10:10 PM EDT) Ventricular rate 139 BPM MUSE SYSTEM Atrial Rate 139 BPM MUSE SYSTEM P-R Interval 168 ms MUSE SYSTEM QRS Duration 84 ms MUSE SYSTEM Q-T Interval 286 ms MUSE SYSTEM QTC Calculated (Bezet) 435 ms MUSE SYSTEM Calculated R Clayton -59 degrees MUSE SYSTEM Calculated T Clayton -27 degrees MUSE SYSTEM INTERPRETATION Mid-RP tachycardia, [...] interpretation Confirmed by fellow MD Bowen Ashley ([id number]) on 11/04/2023 7:57:50 AM Confirmed by MD Carrillo Danette ([id number]) on 11/04/2023 4:32:03 PM MUSE SYSTEM 11/01/2023 10:1 0 PM EDT 11/04/2023 4:32 PM EDT Rosa Cornejo MD ECG ORDERABLES MUSE SYSTEM * (ABNORMAL) Hemogram (11/01/2023 10:06 PM EDT) White Blood Cell 10.4(H) 4.0 - 9.5 x10(3)/mc L [facility] Red Blood Cell 4.11 4.00 - 5.21 x10(6)/mc L [facility] Hemoglobin 14.0 11.7 - 15.5 g/dL [facility] Hematocrit 41.1 35.7 - 45.8 % [facility] Mean Cell Volume 100.0(H) 82.6 - 94.4 fL [facility] Mean Cell Hemoglobin 34.1(H) 27.1 - 32.0 pg [facility] Mean Cell Hemoglobin Concentration 34.1 31.7 - 35.0 g/dL [facility] Platelet 197 145 - 357 x10(3)/mc L [facility] RDW Standard Deviation 54.0(H) 37.0 - 46.0 [facility] RDW coefficient of variation 14.6(H) 11.5 - 14.1 % [facility] Mean Platelet Volume 11.2 7.6 - 12.9 [facility] NRBC% auto 0.0 % [facility] NRBC Absolute 0.000 0.000 - 0.000 x10(3)/mc L [facility] Blood 11/01/2023 10:0 6 PM EDT 11/01/2023 10:22 PM EDT Narrative Resulting Agency Comment Spec In Lab Rosa Hugo MD HEMATOLOGY ORDERAB LES [facility] [place] [id number] * POCT Glucose (11/01/2023 5:59 PM EDT) Glucose, POC 104 65 - 199 mg/dL [facility] Comment: Supplemental ranges: <140 mg/dL before meals <180 mg/dL all other times of the day Blood 11/01/2023 5:59 PM EDT 11/01/2023 5:59 PM EDT Rosa Hugo MD POINT OF CARE TEST ORDERABLES [facility] [place] [address] * POCT Glucose (11/01/2023 5:35 PM EDT) Glucose, POC 85 65 - 199 mg/dL [facility] Comment: Supplemental ranges: <140 mg/dL before meals <180 mg/dL all other times of the day Blood 11/01/2023 5:35 PM EDT 11/01/2023 5:35 PM EDT Rosa Hugo MD POINT OF CARE TEST ORDERABLES [facility] [place] [address] * EKG 12 Lead (11/01/2023 3:22 PM EDT) Ventricular rate 59 BPM MUSE SYSTEM Atrial Rate 59 BPM MUSE SYSTEM P-R Interval 220 ms MUSE SYSTEM QRS Duration 94 ms MUSE SYSTEM Q-T Interval 428 ms MUSE SYSTEM QTC Calculated (Bezet) 423 ms MUSE SYSTEM Calculated P Clayton 76 degrees MUSE SYSTEM Calculated R Clayton -50 degrees MUSE SYSTEM Calculated T Clayton -59 degrees MUSE SYSTEM INTERPRETATION Sinus bradycardia with sinus arrhythmia with 1st degree A-V block Left anterior fascicular block Moderate voltage criteria for LVH, may be normal variant ( R in aVL , Vadito product ) Cannot rule out Inferior infarct [...] ? Procedure Date: 11/01/2023 ? A #: [id number] ? Primary Physician: Rosa Dewey I ? Case #: [id number] ? File Name: [id number] ? Catheterization Order Number: [id number] ? [facility] ? Final Report [place], [place] ? Patient Name: ? Adin M. Goguen ?ID#: ?[id number] ? : ?1940 ? Procedure Date: ? [...] procedure was Urgent. The indication for ?the blood bank laboratory technician visit is ACS greater than [...] ??A premounted ? 3.50 x 15 mm [place] (RADHA) was deployed with a maximum ? [...] ? A premounted 3.50 x 15 mm [place] (RADHA) was deployed ? with a maximum [...] dose administered prior to arrival in the blood bank laboratory technician. ?Recommended anti-platelet/anti-thrombotic regimen: ?Continue aspirin 81 mg daily for indefinitely. ?Continue clopidogrel 75 mg daily for 12 months then stop. ?These recommendations are made at the time of the intervention. Patient ?and provider preferences or a changing clinical situation may require ?modification of this regimen. Consult [facility] Interventional Cardiology for ?questions. ?The [...] Adin Santos Procedure Date: 11/01/2023 A #: [id number] Primary Physician: Rosa Dewey I Case #: [id number] File Name: [id number] Catheterization Order Number: [id number] [facility] FinalReport [place], [place] Patient Name: Adin Santos ID#:[id number] :1940 Procedure Date: November 01, 2023 Case [...] diagnostic procedure was Urgent. The indicationfor the blood bank laboratory technician visit is ACS greater than [...] 14 atmospheres. Apremounted 3.50 x 15 mm [place] (RADHA) was deployed with amaximum inflation pressure [...] The lesion was predilated with a 3.00mm ARRLEFW14 MM balloon with a maximum inflation pressure of 14atmospheres. A premounted 3.50 x 15 mm [place] (RADHA) wasdeployed with a maximum inflation pressure [...] dose administered prior to arrival in the blood bank laboratory technician. Recommended anti-platelet/anti-thrombotic regimen: Continue aspirin 81 mg daily for indefinitely. Continue clopidogrel 75 mg daily for 12 months then stop. These recommendations are made at the time of the intervention.Patient and provider preferences or a changing clinical situation mayrequire modification of this regimen. Consult [facility] Interventional Cardiologyfor questions. The 1 [...] POCT Glucose (11/01/2023 7:06 AM EDT) Pathologist [facility] Glucose, POC 93 65 - 199 mg/dL [facility] Comment: Supplemental ranges: <140 mg/dL before meals <180 mg/dL all other times of the day Blood 11/01/2023 7:06 AM EDT 11/01/2023 7:06 AM EDT Jean Laboy MD POINT OF CARE TEST O RDERABLES [facility] [place] [address] * (ABNORMAL) Differential, Automated (11/01/2023 3:09 AM EDT) Neutrophil % 63.9 % [facility] Neutrophil Absolute 5.54 1.70 - 6.10 x10(3)/mc L [facility] Lymph % 20.0 % [facility] Lymphocytes Abs 1.7 0.9 - 3.2 x10(3)/mc L [facility] Monocyte % 11.9 % [facility] Monocyte Abs 1.0(H) 0.3 - 0.9 x10(3)/ L [facility] Eos % 3.2 % [facility] Eosinophils Abs 0.3 0.0 - 0.4 x10(3)/ L [facility] Basophil % 0.5 % [facility] Baso Absolute 0.0 0.0 - 0.1 x10(3)/ L [facility] Immature Gran % 0.50 % [facility] Comment: Immature granulocytes(IG's)percentage and absolute count will include metamyelocytes, myelocytes, and promyelocytes. Blood smears from CBCs yielding IG's will be scanned manually for concordance. If this scan disagrees with the automated IG or if promyelocytes are noted, a manual differential will be performed. Immature Gran Absolute 0.04 0.00 - 0.04 x10(3)/[facility] Blood 11/01/2023 3:09 AM EDT 11/01/2023 3:29 AM EDT Narrative Resulting Agency Comment Spec In Lab Qamar Gallardo MD HEMATOLOGY ORDERABLE S [facility] [place] [address] * (ABNORMAL) Hemogram (11/01/2023 3:09 AM EDT) White Blood Cell 8.7 4.0 - 9.5 x10(3)/ L [facility] Red Blood Cell 3.72(L) 4.00 - 5.21 x10(6)/[facility] Hemoglobin 12.5 11.7 - 15.5 g/dL [facility] Hematocrit 36.8 35.7 - 45.8 % [facility] Mean Cell Volume 98.9(H) 82.6 - 94.4 fL [facility] Mean Cell Hemoglobin 33.6(H) 27.1 - 32.0 pg [facility] Mean Cell Hemoglobin Concentration 34.0 31.7 - 35.0 g/dL [facility] Platelet 184 145 - 357 x10(3)/mc L [facility] RDW Standard Deviation 53.5(H) 37.0 - 46.0 fL [facility] RDW coefficient of variation 14.6(H) 11.5 - 14.1 % [facility] Mean Platelet Volume 11.3 7.6 - 12.9 fL [facility] NRBC% auto 0.0 % [facility] NRBC Absolute 0.000 0.000 - 0.000 x10(3)/mc L [facility] Blood 11/01/2023 3:09 AM EDT 11/01/2023 3:29 AM EDT Narrative Resulting Agency Comment Spec In Lab Qamar Gallardo MD HEMATOLOGY ORDERABLE S [facility] [place] [address] * Phosphorus (11/01/2023 3:09 AM EDT) Phosphorus 2.5 2.5 - 4.5 mg/dL [facility] Blood 11/01/2023 3:09 AM EDT 11/01/2023 3:29 AM EDT Narrative Resulting Agency Comment Spec In Lab Rosa Cornejo MD CHEMISTRY ORDERABLE S [facility] [place] [address] * Magnesium (11/01/2023 3:09 AM EDT) Magnesium 0.82 0.69 - 1.07 mmol/L [facility] Blood 11/01/2023 3:09 AM EDT 11/01/2023 3:29 AM EDT Narrative Resulting Agency Comment Spec In Lab Rosa Cornejo MD CHEMISTRY ORDERABLE S [facility] [place] [address] * (ABNORMAL) Basic Metabolic Panel (non-fasting) (11/01/2023 3:09 AM EDT) Glucose 100 65 - 199 mg/dL [facility] Comment:Diabetes: >=200 mg/d L plus symptoms Blood Urea Nitrogen 14 8 - 18 mg/dL [facility] Creatinine 0.83 0.70 - 1.20 mg/dL [facility] Sodium 137 135 - 145 mmol/L [facility] Potassium 3.4(L) 3.5 - 5.0 mmol/L [facility] Comment: Please note: ??Patients with WBC >100,000 may have falsely elevated Potassium levels. ??For accurate Potassium quantification in these patients send serum separator tube (gold top) for subsequent determinations. ??Contact the Clinical Chemistry Laboratory if there are any questions. Chloride 105 98 - 107 mmol/L [facility] Carbon Dioxide 24 22 - 31 mmol/L [facility] Anion Gap 8 5 - 15 mmol/L [facility] Calcium 8.6 8.5 - 10.5 mg/dL [facility] Est Glomerular Filtration Rate 69 >=60 mL/min/1. 73 m?? [facility] Comment: This patient's estimated [...] MD CHEMISTRY ORDERABLE S Performing Organization Address City/[facility]/ZIP Co de Phone Number [facility] [place] [address] * (ABNORMAL) Troponin (10/31/2023 2:46 PM EDT) Troponin-T, High Sensitivity 544(H) <=14 ng/L [facility] Comment: This patient's troponin [...] value can be found in the [facility] Laboratory Test Catalog Troponin - [facility] Test Catalog Reference: Fourth Harrod Definition of Myocardial Infarction. Journal of the [employer] [place] [employer] 2018;72:2806-1000 Blood 10/31/2023 2:46 PM EDT 10/31/2023 2:55 PM EDT Narrative Resulting Agency Comment Spec In Lab Jean Laboy MD CHEMISTRY ORDERABLES Performing Organization Address City/[facility]/ZIP Co de Phone Number [facility] [place] [address] * EKG 12 Lead (10/31/2023 1:07 PM EDT) Ventricular rate 54 BPM MUSE SYSTEM Atrial Rate 54 BPM MUSE SYSTEM P-R Interval 218 ms MUSE SYSTEM QRS Duration 92 ms MUSE SYSTEM Q-T Interval 540 ms MUSE SYSTEM QTC Calculated (Bezet) 512 ms MUSE SYSTEM Calculated P Clayton 85 degrees MUSE SYSTEM Calculated R Clayton -44 degrees MUSE SYSTEM Calculated T Clayton -69 degrees MUSE SYSTEM INTERPRETATION Sinus bradycardia [...] (ABNORMAL) Troponin (10/31/2023 11:37 AM EDT) Pathologist [facility] Troponin-T, High Sensitivity 580(H) <=14 ng/L [facility] Comment: This patient's troponin [...] value can be found in the [facility] Laboratory Test Catalog Troponin - [facility] Test Catalog Reference: Fourth Harrod Definition of Myocardial Infarction. Journal of the [employer] [place] [employer] 2018;72:8075-6757 Blood 10/31/2023 11:3 7 AM EDT 10/31/2023 11:50 AM EDT Narrative Resulting Agency Comment Spec In Lab Rosa Cornejo MD CHEMISTRY ORDERABLE S [facility] [place] [address] * ECHO COMPLETE (10/31/2023 8:52 AM EDT) Anatomical Region Laterality Modality Cardiac Other 10/31/2023 7:57 AM EDT Narrative 10/31/2023 9:45 AM EDT [address] [place] [address] ? Echocardiogram Report Name: TOM ADIN Dorene ? Study Date: 10/31/2023 07:57 AMBP: 106/76 mmHg ? Patient Location: [address] : 1940 ? Height: 163 cm ? Account: [id number] Age: 83 yrs ? Weight: 76 kg Gender: Female ?BSA: 1.8 m2 Ordering Physician: ROSA DEWEY Referring Physician: OMAIRA GIRON Performed By: HAFSA Carmichael Reason For Study: STEMI Interpreting Fellow: Raymond Warren. Exam Location: [facility]. Interpretation Summary -The left ventricle is [...] is no prior echocardiogram for comparison. Procedure Complete-97133. Satisfactory quality. There is sinus bradycardia. Left [...] Note Edgard Wang MD - 10/31/2023 [address] [place] [address] Echocardiogram Report Name: ADIN SANTOS Study Date: 407:57 AMBP: 106/76 mmHg Patient Location: [address] : 1940 Height: 163 cm Account: [id number] Age: 83 yrs Weight: 76 kg Gender: Female BSA: 1.8 m2 Ordering Physician: ROSA DEWEY Referring Physician: OMAIRA GIRON Performed By: HAFSA Carmichael Reason For Study: STEMI Interpreting Fellow: Raymond Warren. Exam Location: [facility]. Interpretation Summary -The left ventricle is [...] is no prior echocardiogram for comparison. Procedure Complete-10694. Satisfactory quality. There is sinus bradycardia. Left [...] * (ABNORMAL) Troponin (10/31/2023 8:51 AM EDT) [facility] Troponin-T, High Sensitivity 571(H) <=14 ng/L [facility] Comment: This patient's troponin [...] value can be found in the [facility] Laboratory Test Catalog Troponin - [facility] Laboratory Test Catalog Reference: Fourth Harrod Definition of Myocardial Infarction. Journal of the [employer] [place] [employer] 2018;72:3796-5256 Blood 10/31/2023 8:51 AM EDT 10/31/2023 9:12 AM EDT Narrative Resulting Agency Comment Spec In Lab Rosa Cornejo MD CHEMISTRY ORDERABLE S Performing Organization Address [facility] Co de Phone Number [facility] [place] [address] * CARDIAC CATHETERIZATION (10/31/2023 8:10 AM EDT) Anatomical Region Laterality Modality Other Narrative 11/07/2023 9:42 AM EDT ?[facility] ? Cardiac Catheterization/Intervention Report ? Patient Name: Adin Santos ? Procedure Date: 10/30/2023 ? A #: [id number] ? Primary Physician: Rosa Dewey I ? Case #: [id number] ? File Name: [id number] ? Catheterization Order Number: [id number] ? [facility] ?[facility] ? Final Report [place], [place] ? Patient Name: ? Adin M. Goguen ?ID#: ?[id number] ? : ?1940 ? Procedure Date: ? [...] procedure was Emergent. The indication for ?the blood bank laboratory technician visit is ACS less than [...] A premounted 4.00 x 38 mm [place] (RADHA) was deployed ? with a maximum [...] dose administered prior to arrival in the blood bank laboratory technician. ?Recommended anti-platelet/anti-thrombotic regimen: ?Continue aspirin 81 mg daily for 12 months then stop. ?Continue clopidogrel 75 mg daily for indefinitely. ?These recommendations are made at the time of the intervention. Patient ?and provider preferences or a changing clinical situation may require ?modification of this regimen. Consult [facility] Interventional Cardiology for ?questions. ? [...] Adin Santos Procedure Date: 10/30/2023 A #: [id number] Primary Physician: Rosa Dewey I Case #: [id number] File Name: [id number] Catheterization Order Number: [id number] [facility] FinalReport [place], [place] Patient Name: Adin Santos ID#:[id number] :1940 Procedure Date: October 30, 2023 Case [...] diagnostic procedure was Emergent. Theindication for the blood bank laboratory technician visit is ACS less than [...] for the procedure was Emergent.The [facility] indication for the procedure was [...] A premounted 4.00 x 38 mm [place] (RADHA) wasdeployed with a maximum inflation pressure [...] dose administered prior to arrival in the blood bank laboratory technician. Recommended anti-platelet/anti-thrombotic regimen: Continue aspirin 81 mg daily for 12 months then stop. Continue clopidogrel 75 mg daily for indefinitely. These recommendations are made at the time of the intervention.Patient and provider preferences or a changing clinical situation mayrequire modification of this regimen. Consult [facility] Interventional Cardiologyfor questions. Conclusions: * [...] was present for the entire procedure. Dr. Rsoa Dewey M.D. was present during the moderate [...] * (ABNORMAL) Troponin (10/31/2023 4:21 AM EDT) [facility] Troponin-T, High Sensitivity 457(H) <=14 ng/L [facility] Comment: This patient's troponin [...] value can be found in the [facility] Test Catalog Troponin - [facility] Test Catalog Reference: Fourth Harrod Definition of Myocardial Infarction. Journal of the [employer] [place] College of [employer]iology 2018;72:3970-8573 Blood 10/31/2023 4:21 AM EDT 10/31/2023 4:30 AM EDT Narrative Resulting Agency Comment Spec In Lab Rosa Cornejo MD CHEMISTRY ORDERABLE S Performing Organization Address City/State/[facility] Co de Phone Number [facility] [place] [address] * (ABNORMAL) Differential, Automated (10/31/2023 3:05 AM EDT) Neutrophil % 71.7 % [facility] Neutrophil Absolute 8.21(H) 1.70 - 6.10 x10(3)/mc L [facility] Lymph % 16.9 % [facility] Lymphocytes Abs 1.9 0.9 - 3.2 x10(3)/mc L [facility] Monocyte % 9.4 % [facility] Monocyte Abs 1.1(H) 0.3 - 0.9 x10(3)/mc L [facility] Eos % 1.3 % [facility] Eosinophils Abs 0.2 0.0 - 0.4 x10(3)/mc L [facility] Basophil % 0.4 % [facility] Baso Absolute 0.0 0.0 - 0.1 x10(3)/mc L [facility] Immature Gran % 0.30 % [facility] Comment: Immature granulocytes(IG's)percentage and absolute count will include metamyelocytes, myelocytes, and promyelocytes. Blood smears from CBCs yielding IG's will be scanned manually for concordance. If this scan disagrees with the automated IG or if promyelocytes are noted, a manual differential will be performed. Immature Gran Absolute 0.04 0.00 - 0.04 x10(3)/ L [facility] Blood 10/31/2023 3:05 AM EDT 10/31/2023 3:13 AM EDT Narrative Resulting Agency Comment Spec In Lab Qamar Gallardo MD HEMATOLOGY ORDERABLE S [facility] [place] [address] * (ABNORMAL) Hemogram (10/31/2023 3:05 AM EDT) White Blood Cell 11.5(H) 4.0 - 9.5 x10(3)/ L [facility] Red Blood Cell 3.75(L) 4.00 - 5.21 x10(6)/mc L [facility] Hemoglobin 12.6 11.7 - 15.5 g/dL [facility] Hematocrit 37.1 35.7 - 45.8 % [facility] Mean Cell Volume 98.9(H) 82.6 - 94.4 fL [facility] Mean Cell Hemoglobin 33.6(H) 27.1 - 32.0 pg [facility] Mean Cell Hemoglobin Concentration 34.0 31.7 - 35.0 g/dL [facility] Platelet 206 145 - 357 x10(3)/mc L [facility] RDW Standard Deviation 53.4(H) 37.0 - 46.0 fL [facility] RDW coefficient of variation 14.6(H) 11.5 - 14.1 % [facility] Mean Platelet Volume 11.1 7.6 - 12.9 fL [facility] NRBC% auto 0.0 % [facility] NRBC Absolute 0.000 0.000 - 0.000 x10(3)/mc L [facility] Blood 10/31/2023 3:05 AM EDT 10/31/2023 3:13 AM EDT Narrative Resulting Agency Comment Spec In Lab Qamar Gallardo MD HEMATOLOGY ORDERABLE S Performing Organization Address [facility] de Phone Number [facility] [place] [address] * (ABNORMAL) APTT (10/31/2023 3:05 AM EDT) Partial Thromboplastin Time 67(H) 25 - 37 sec [facility] Comment: The PTT is NOT appropriate for heparin monitoring. Use the Anti-Xa level for heparin monitoring (HEP UFH) or LMWH monitoring (HEP LMW). A PTT less than 37 seconds generally indicates adequate hemostasis. Blood 10/31/2023 3:05 AM EDT 10/31/2023 3:13 AM EDT Narrative Resulting Agency Comment Spec In Lab Rosa Cornejo MD HEMATOLOGY ORDERABL ES Performing Organization Address [facility] de Phone Number [facility] [place] [address] * (ABNORMAL) Prothrombin Time (10/31/2023 3:05 AM EDT) Prothrombin Time 12.6(H) 9.4 - 12.5 sec [facility] International Normalization Ratio 1.1 [facility] Comment: An INR <2.0 [...] Lab Rosa Cornejo MD HEMATOLOGY ORDERABL ES [facility] [place] [address] * (ABNORMAL) Differential, Automated (10/31/2023 1:37 AM EDT) Neutrophil % 71.1 % [facility] Neutrophil Absolute 7.53(H) 1.70 - 6.10 x10(3)/mc L [facility] Lymph % 18.0 % [facility] Lymphocytes Abs 1.9 0.9 - 3.2 x10(3)/ L [facility] Monocyte % 8.7 % [facility] Monocyte Abs 0.9 0.3 - 0.9 x10(3)/mc L [facility] Eos % 1.6 % [facility] Eosinophils Abs 0.2 0.0 - 0.4 x10(3)/mc L [facility] Basophil % 0.4 % [facility] Baso Absolute 0.0 0.0 - 0.1 x10(3)/mc L [facility] Immature Gran % 0.20 % [facility] Comment: Immature granulocytes(IG's)percentage and absolute count will include metamyelocytes, myelocytes, and promyelocytes. Blood smears from CBCs yielding IG's will be scanned manually for concordance. If this scan disagrees with the automated IG or if promyelocytes are noted, a manual differential will be performed. Immature Gran Absolute 0.02 0.00 - 0.04 x10(3)/mc L [facility] Blood 10/31/2023 1:37 AM EDT 10/31/2023 1:46 AM EDT Narrative Resulting Agency Comment Spec In Lab Qamar Gallardo MD HEMATOLOGY ORDERABLE S [facility] [place] [address] * (ABNORMAL) Hemogram (10/31/2023 1:37 AM EDT) White Blood Cell 10.6(H) 4.0 - 9.5 x10(3)/mc L [facility] Red Blood Cell 3.78(L) 4.00 - 5.21 x10(6)/mc L [facility] Hemoglobin 13.0 11.7 - 15.5 g/dL [facility] Hematocrit 37.9 35.7 - 45.8 % [facility] Mean Cell Volume 100.3(H) 82.6 - 94.4 fL [facility] Mean Cell Hemoglobin 34.4(H) 27.1 - 32.0 pg [facility] Mean Cell Hemoglobin Concentration 34.3 31.7 - 35.0 g/dL [facility] Platelet 204 145 - 357 x10(3)/mc L [facility] RDW Standard Deviation 54.3(H) 37.0 - 46.0 fL [facility] RDW coefficient of variation 14.6(H) 11.5 - 14.1 % [facility] Mean Platelet Volume 11.1 7.6 - 12.9 fL [facility] NRBC% auto 0.0 % [facility] NRBC Absolute 0.000 0.000 - 0.000 x10(3)/mc L [facility] Blood 10/31/2023 1:37 AM EDT 10/31/2023 1:46 AM EDT Narrative Resulting Agency Comment Spec In Lab Qamar Gallardo MD HEMATOLOGY ORDERABLE S [facility] [place] [address] * Phosphorus (10/31/2023 1:37 AM EDT) Phosphorus 3.2 2.5 - 4.5 mg/dL [facility] Blood 10/31/2023 1:37 AM EDT 10/31/2023 1:46 AM EDT Narrative Resulting Agency Comment Spec In Lab Rosa Cornejo MD CHEMISTRY ORDERABLE S Performing Organization Address City/[facility]/ZIP Co de Phone Number [facility] [place] [address] * Magnesium (10/31/2023 1:37 AM EDT) Magnesium 0.83 0.69 - 1.07 mmol/L [facility] Blood 10/31/2023 1:37 AM EDT 10/31/2023 1:46 AM EDT Narrative Resulting Agency Comment Spec In Lab Rosa Cornejo MD CHEMISTRY ORDERABLE S Performing Organization Address City/[facility]/ZIP Co de Phone Number [facility] [place] [address] * Basic Metabolic Panel (non-fasting) (10/31/2023 1:37 AM EDT) Glucose 114 65 - 199 mg/dL [facility] Comment:Diabetes: >=200 mg/d L plus symptoms Blood Urea Nitrogen 13 8 - 18 mg/dL [facility] Creatinine 0.81 0.70 - 1.20 mg/dL [facility] Sodium 140 135 - 145 mmol/L [facility] Potassium 3.9 3.5 - 5.0 mmol/L [facility] Comment: Please note: ??Patients with WBC >100,000 may have falsely elevated Potassium levels. ??For accurate Potassium quantification in these patients send serum separator tube (gold top) for subsequent determinations. ??Contact the Clinical Chemistry Laboratory if there are any questions. Chloride 107 98 - 107 mmol/L [facility] Carbon Dioxide 25 22 - 31 mmol/L [facility] Anion Gap 8 5 - 15 mmol/L [facility] Calcium 8.6 8.5 - 10.5 mg/dL [facility] Est Glomerular Filtration Rate 72 >=60 mL/min/1. 73 m?? [facility] Comment: This patient's estimated [...] Lab Rosa Cornejo MD CHEMISTRY ORDERABLE S [facility] [place] [address] * (ABNORMAL) Troponin (10/31/2023 1:37 AM EDT) Troponin-T, High Sensitivity 329(H) <=14 ng/L [facility] Comment: This patient's troponin [...] value can be found in the [facility] Test Catalog Troponin - [facility] Test Catalog Reference: Fourth Harrod Definition of Myocardial Infarction. Journal of the [place] College [employer]iology 2018;72:3318-3184 Blood 10/31/2023 1:37 AM EDT 10/31/2023 1:46 AM EDT Narrative Resulting Agency Comment Spec In Lab Rosa Cornejo MD CHEMISTRY ORDERABLE S Performing Organization Address City/[facility]/ZIP [place] [address] * EKG 12 Lead (10/31/2023 1:20 AM EDT) Ventricular rate 52 BPM MUSE SYSTEM Atrial Rate 52 BPM MUSE SYSTEM P-R Interval 224 ms MUSE SYSTEM QRS Duration 108 ms MUSE SYSTEM Q-T Interval 544 ms MUSE SYSTEM QTC Calculated (Bezet) 505 ms MUSE SYSTEM Calculated P Clayton 90 degrees MUSE SYSTEM Calculated R Clayton -57 degrees MUSE SYSTEM Calculated T Clayton -63 degrees MUSE SYSTEM INTERPRETATION Sinus bradycardia [...] (Bezet) 497 ms MUSE SYSTEM Calculated P Clayton 75 degrees MUSE SYSTEM Calculated R Clayton -53 degrees MUSE SYSTEM Calculated T Clayton -57 degrees MUSE SYSTEM INTERPRETATION Sinus bradycardia with 1st degree A-V block Left anterior fascicular block Moderate voltage criteria for LVH, may be normal variant ( R in aVL , Vadito product ) T wave abnormality, consider inferior ischemia T wave abnormality, consider anterolateral ischemia Prolonged QT Abnormal ECG When compared with ECG of 30-OCT-2023 20:21, Incomplete right bundle branch block is no longer Present Confirmed by Butch Soto MD ([id number]) on 11/01/2023 8:58:01 PM MUSE SYSTEM 10/30/2023 10:4 0 PM EDT 11/01/2023 8:58 PM EDT Rosa Cornjeo MD ECG ORDERABLES MUSE SYSTEM * XR Chest One View (10/30/2023 10:10 PM EDT) WORKSTATION ID [id number] DH RAD Anatomical Region Laterality Modality Chest [...] and low lung volumes. Findings similar to payable representative radiograph from CT 10/30/2023. Thank you for letting us participate in the care of this patient. ??If you are a health care provider and have any questions regarding this report, please contact the number below. ??For patients who have questions please contact the health director of primary care that requested your imaging first. ? [...] and low lung volumes. Findings similar to payable representative radiograph from CT 10/30/2023. Thank you for letting us participate in the care of this patient. If youare a health care provider and have any questions regarding this report,please contact the number below. For patients who have questions please contactthe health director of primary care that requested your imaging first. Rosa Cornejo MD IMG DX ORDERABLES * Green Tube HOLD (10/30/2023 10:05 PM EDT) [facility] Green [facility] in lab. [facility] Blood Venous Draw / Unknown 10/30/2023 10:05 PM EDT 10/30/2023 10:13 PM EDT Qamar Gallardo MD CHEMISTRY ORDERABLES [facility] [place] [address] * (ABNORMAL) Differential, Automated (10/30/2023 10:05 PM EDT) Pathologist [facility] Neutrophil % 76.6 % [facility] Neutrophil Absolute 6.94(H) 1.70 - 6.10 x10(3)/mc L [facility] Lymph % 15.4 % [facility] Lymphocytes Abs 1.4 0.9 - 3.2 x10(3)/mc L [facility] Monocyte % 6.1 % [facility] Monocyte Abs 0.6 0.3 - 0.9 x10(3)/mc L [facility] Eos % 1.1 % [facility] Eosinophils Abs 0.1 0.0 - 0.4 x10(3)/mc L [facility] Basophil % 0.6 % [facility] Baso Absolute 0.0 0.0 - 0.1 x10(3)/mc L [facility] Immature Gran % 0.20 % [facility] Comment: Immature granulocytes(IG's)percentage and absolute count will include metamyelocytes, myelocytes, and promyelocytes. Blood smears from CBCs yielding IG's will be scanned manually for concordance. If this scan disagrees with the automated IG or if promyelocytes are noted, a manual differential will be performed. Immature Gran Absolute 0.02 0.00 - 0.04 x10(3)/ L [facility] Blood 10/30/2023 10:0 5 PM EDT 10/30/2023 10:12 PM EDT Narrative Resulting Agency Comment Spec In Lab Qamar Gallardo MD HEMATOLOGY ORDERABLE S Performing Organization Address City/State/[facility] Co de Phone Number [facility] [place] [address] * (ABNORMAL) Hemogram (10/30/2023 10:05 PM EDT) White Blood Cell 9.0 4.0 - 9.5 x10(3)/ L [facility] Red Blood Cell 3.96(L) 4.00 - 5.21 x10(6)/mc L [facility] Hemoglobin 13.3 11.7 - 15.5 g/dL [facility] Hematocrit 39.1 35.7 - 45.8 % [facility] Mean Cell Volume 98.7(H) 82.6 - 94.4 fL [facility] Mean Cell Hemoglobin 33.6(H) 27.1 - 32.0 pg [facility] Mean Cell Hemoglobin Concentration 34.0 31.7 - 35.0 g/dL [facility] Platelet 211 145 - 357 x10(3)/mc L [facility] RDW Standard Deviation 53.6(H) 37.0 - 46.0 fL [facility] RDW coefficient of variation 14.6(H) 11.5 - 14.1 % [facility] Mean Platelet Volume 11.1 7.6 - 12.9 fL [facility] NRBC% auto 0.0 % [facility] NRBC Absolute 0.000 0.000 - 0.000 x10(3)/mc L [facility] Blood 10/30/2023 10:0 5 PM EDT 10/30/2023 10:12 PM EDT Narrative Resulting Agency Comment Spec In Lab Qamar Gallardo MD HEMATOLOGY ORDERABLE S Performing Organization Address City/[facility]/ZIP Co de Phone Number [facility] [place] [address] * Hemoglobin A1c (10/30/2023 10:05 PM EDT) Hemoglobin A1c 5.5 4.3 - 5.6 % [facility] Comment: Reference Range: 4.3 [...] [id number] Estimated Average Glucose See note mg/dL [facility] Comment: Estimated Average Glucose not appropriate for patients over 70 years of age. Blood 10/30/2023 10:0 5 PM EDT 10/30/2023 10:12 PM EDT Narrative Resulting Agency Comment Spec In Lab Rosa Cornejo MD CHEMISTRY ORDERABLE S [facility] [place] [address] * Lipid Panel (Reflex Direct LDL) (10/30/2023 10:05 PM EDT) [facility] Cholesterol, Total 218 mg/dL D[facility] Comment: Desirable: ? <200 mg/dL Borderline High: 200-239 mg/dL Higher: ?>mk=053 mg/dL Triglyceride 46 mg/dL [facility] Comment: Normal: ?<150 mg/dL Borderline High: 150-199 mg/dL High: ?200-499 mg/dL Very High: ? >ue=106 mg/dL HDL Cholesterol 64 mg/dL [facility] Comment: Females: High Risk: <50 mg/dL Males: High Risk: <40 mg/dL LDL Cholesterol 145 mg/dL [facility] Comment: Desirable: ? <100 mg/dL Above Desirable: 100-129 mg/dL Borderline High: 130-159 mg/dL High: ?160-189 mg/dL Very High: ? >ga=230 mg/dL Lipid Interpretation See Note [facility] Comment: It is important [...] individuals with atherosclerotic cardiovascular disease (ASCVD)or LDL >ar=403 mg/dL, use a high-intensity statin (40-80 mg [...] MD CHEMISTRY ORDERABLE S Performing Organization Address [facility] Co de Phone Number [facility] [place] [address] * TSH [place] (10/30/2023 10:05 PM EDT) Thyroid Stimulating Hormone 3.35 0.27 - 4.20 mcIU/mL [facility] Comment: Reference Interval (mcIU/mL): Females: ??First Trimester: 0.23-3.88 ??Second Trimester: 0.22-3.90 ??Third Trimester: 0.44-4.66 Blood 10/30/2023 10:0 5 PM EDT 10/30/2023 10:12 PM EDT Narrative Resulting Agency Comment Spec In Lab Rosa Cornejo MD CHEMISTRY ORDERABLE S Performing Organization Address [facility]/ZIP Co de Phone Number [facility] [place] [address] * pro-Brain Natriuretic Peptide (10/30/2023 10:05 PM EDT) NT-proBNP 375 <=449 pg/mL [facility] Blood 10/30/2023 10:0 5 PM EDT 10/30/2023 10:12 PM EDT Narrative Resulting Agency Comment Spec In Lab Rosa Cornejo MD CHEMISTRY ORDERABLE S [facility] [place] [address] * (ABNORMAL) Comprehensive metabolic panel (non-fasting) (10/30/2023 10:05 PM EDT) Pathologist [facility] Glucose 121 65 - 199 mg/dL [facility] Comment:Diabetes: >=200 mg/d L plus symptoms Blood Urea Nitrogen 14 8 - 18 mg/dL [facility] Creatinine 0.85 0.70 - 1.20 mg/dL [facility] Sodium 142 135 - 145 mmol/L [facility] Potassium 3.9 3.5 - 5.0 mmol/L [facility] Comment: Please note: ??Patients with WBC >100,000 may have falsely elevated Potassium levels. ??For accurate Potassium quantification in these patients send serum separator tube (gold top) for subsequent determinations. ??Contact the Clinical Chemistry Laboratory if there are any questions. Chloride 105 98 - 107 mmol/L [facility] Carbon Dioxide 27 22 - 31 mmol/L [facility] Anion Gap 10 5 - 15 mmol/L [facility] Calcium 8.8 8.5 - 10.5 mg/dL [facility] Protein, Total 6.5 6.1 - 8.0 g/dL [facility] Albumin 4.2 3.2 - 5.2 g/dL [facility] Aspartate Aminotransferase 36(H) 0 - 30 unit/L [facility] Alanine Aminotransferase 17 0 - 30 unit/L [facility] Alkaline Phosphatase 54 35 - 105 unit/L [facility] Bilirubin, Total 0.5 0.2 - 1.3 mg/dL [facility] Est Glomerular Filtration Rate 68 >=60 mL/min/1. 73 m?? [facility] Comment: This patient's estimated [...] MD CHEMISTRY ORDERABLE S Performing Organization Address City/[facility]/ZIP Co de Phone Number [facility] [place] [address] * Phosphorus (10/30/2023 10:05 PM EDT) Phosphorus 3.3 2.5 - 4.5 mg/dL [facility] Blood 10/30/2023 10:0 5 PM EDT 10/30/2023 10:12 PM EDT Narrative Resulting Agency Comment Spec In Lab Rosa Cornejo MD CHEMISTRY ORDERABLE S [facility] [place] [address] * Magnesium (10/30/2023 10:05 PM EDT) Magnesium 0.86 0.69 - 1.07 mmol/L [facility] Blood 10/30/2023 10:0 5 PM EDT 10/30/2023 10:12 PM EDT Narrative Resulting Agency Comment Spec In Lab Rosa Cornejo MD CHEMISTRY ORDERABLE S Performing Organization Address City/[facility]/ZIP Co de Phone Number [facility] [place] [address] * (ABNORMAL) Troponin (10/30/2023 10:05 PM EDT) Troponin-T, High Sensitivity 214(H) <=14 ng/L [facility] Comment: This patient's troponin [...] value can be found in the [facility] Test Catalog Troponin - [facility] Test Catalog Reference: Fourth Harrod Definition of Myocardial Infarction. Journal of the [place] College [employer]iology 2018;72:1010-0250 Blood 10/30/2023 10:0 5 PM EDT 10/30/2023 10:12 PM EDT Narrative Resulting Agency Comment Spec In Lab Rosa Cornejo MD CHEMISTRY ORDERABLE S Performing Organization Address City/[facility]/ZIP Co de Phone Number [facility] [place] [address] * EKG 12 Lead (10/30/2023 8:21 PM EDT) Ventricular rate 49 BPM MUSE SYSTEM Atrial Rate 49 BPM MUSE SYSTEM P-R Interval 230 ms MUSE SYSTEM QRS Duration 96 ms MUSE SYSTEM Q-T Interval 526 ms MUSE SYSTEM QTC Calculated (Bezet) 475 ms MUSE SYSTEM Calculated P Clayton 98 degrees MUSE SYSTEM Calculated R Clayton -48 degrees MUSE SYSTEM Calculated T Clayton -51 degrees MUSE SYSTEM INTERPRETATION Sinus bradycardia [...] Danica Shipley RN) 1730 (Given - Provider: Mray Sweeney RN) 1621 (Given - Provider: Moshe [...] Reason: Transfer to a Procedural area)1548 ([facility] Unhold - Provider: Admin Adt) [...] Reason: Transfer to a Procedural area)1548 ([facility] Unhold - Provider: Admin Adt) [...] documented as of this encounter Care Teams Inside Sales Specialist Relationship Specialty Start Date End Date Rosie Mathews MD [address] [place] [id number] PCP - General Family Medicine 11/25/17 11/23/23 documented as of this encounter
--- OUTSIDE RECORDS SUMMARY | 2024-03-09 10:34 | XMS_ITS | Encounter Summary ---
Author Organization [facility] Address [facility] [place] [address] Care Team Providers Care Clothing Examiner Name Role Phone Rosie Mathews MD Primary Care Provider [phone] Encounter Details Date Type Department Care Team (Late st Contact Info) Description 10/30/2023 [place] [address] Jose Lee MD [facility] [place] [address] Social History Tobacco Use Types Packs/Day Years [...] 10/30/2023 Referring Provider: Bree Patient Location: [facility] HPI: 83 yoF w/ PMHx of HTN, [...] in the patient condition. Jose Lee MD Senior Software Developer documented in this encounter Plan of Treatment Upcoming Encounters Date Type Department Care Team (Late st Contact Info) Description 03/29/2024 11:20 AM EDT Office Visit Cardiology at [address] [place] [address] Izaiah Meyer MD [facility] [place] [address] documented as of this encounter Visit Diagnoses Not on filedocumented in this encounter Care Teams Clothing Examiner Relationship Specialty Start Date End Date Rosie Mathews MD [address] [place] [address] PCP - General Family Medicine 11/25/17 11/23/23 documented as of this encounter
--- OUTSIDE RECORDS SUMMARY | 2024-03-09 10:34 | XMS_ITS | Encounter Summary ---
Author Organization [facility] Address [facility] [address] Care Team Providers Care [employer] Coating Machine Setter Name Role Phone Rosie Mathews MD Primary Care Provider [phone] Encounter Details Date Type Department Care Team (Late st Contact Info) Description 10/30/2023 5:00 PM EDT Ancillary Procedure Radiology Library at [facility] [place] [address] Izaiah Meyer MD [facility] [place] [address] Social History Tobacco Use Types Packs/Day Years Used Date Smoking Tobacco: Former Smokeless Tobacco: Never Alcohol Use Standard Drinks/Week Comments Not Currently 0 (1 standard drink = 0.6 oz pur e alcohol) FOR[facility]LY [facility] Inpatient Questions Answer Date Recorded [...] AM EDT Office Visit Cardiology at [address] [place] [id number] Izaiah Meyer MD [facility] [place] [address] documented as of this encounter Procedures Procedure Name Priority Date/Time Associated Diagnosis Comments FILM LIBRARY STORAGE ONLY CT CHEST Routine 10/30/2023 4:59 PM EDT documented in this encounter Results * Film Library- Storage Only CT Chest (10/30/2023 4:59 PM EDT) Narrative [facility] - 10/30/2023 4:59 PM EDT This exam is auto-finalizing. It's purpose is for storage only. Izaiah Meyer MD IMG FILM LIBRARY ORD ERABLES Performing Organization Address City/State/[facility] Co de Phone Number [place], [place] documented in this encounter Visit Diagnoses Not on filedocumented in this encounter Care Teams [employer] Co[employer] Machine Setter Relationship Specialty Start Date End Date Rosie Mathews MD [address] [place] [address] PCP - General Family Medicine 11/25/17 11/23/23 documented as of this encounter
--- OUTSIDE RECORDS SUMMARY | 2024-03-09 10:34 | XMS_ITS | Encounter Summary ---
Author Organization [facility] [place] [address] Care Team Providers Care News Specialist Name Role Phone Rosie Mathews MD Primary Care Provider [phone] Reason for Visit * Auth/Cert (Routine) Specialty Diagnoses / Procedures Referred By Contac t Referred To Contact Diagnoses Unstable angina Chest pain NSTEMI Procedures CARDIAC CATHETERIZATION Rosa Dewey MD [facility] [place] [address] [facility] Referral ID Status Reason Start Date Expiration Date Visits Re quested Visits Authorized [id number] 1 1 Encounter Details Date Type Department Care Team (Late st Contact Info) Description 10/30/2023 4:25 PM EDT - 10/30/2023 5:27 PM EDT [place] [address] Rosa Dewey MD [facility] [address] [place], [place] [id number] CARDIAC CATHETERIZATION Social History Tobacco Use Types Packs/Day Years Used Date Smoking Tobacco: Former Smokeless Tobacco: Never Alcohol Use Standard Drinks/Week Comments Not Currently 0 (1 standard drink = 0.6 oz pur e alcohol) [facility] Inpatient Questions Answer Date Recorded Does Anyone [...] [facility] as a possible STEMI alert with acute onset chest pain. The patient reports that her symptoms initially began on Tuesday when she was walking to [facility] and experienced bilateral arm heaviness while walking with no other symptoms. Then, this afternoon shereports developing bilateral achy shoulder pain and nonradiating substernal left-sided chest pressure that was 7/10 in severity after coming home from [facility]. The patient denies any associated fevers, chills, [...] on repeat, her JAMIE resolved. Cardiology at [facility] was consulted for transfer; the patient was loaded with aspirin 324 mg and ticagrelor 180 mg, started on a heparin drip, and given nitroglycerin with improvement in chest pain. Upon arrival to [facility], the patient was taken directly to the Box Cutter. Two lesions were discovered: one in the prox RCA (felt to almost be a THRESHING MACHINE OPERATOR but they were able to wire, [...] administered prior to arrival in the lab nurse. Recommended anti-platelet/anti-thrombotic regimen: Continue aspirin [...] and low lung volumes. 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 Pending Studies and [...] 10:40 AM Izaiah Meyer MD Cardiology at [place] Arrive at: [facility] [address] [phone] Future Orders Complete By Expires Referral to Cardiac Rehab [[id number] Custom] As directed Process Instructions: If no progress note charted, please enter Clinical details in comments. Scheduling Instructions: Questions: My question or request is: STEMI. Cardiac rehab at [facility]. Referral to Home Health [[id number] Custom] As directed Process Instructions: If no progress note charted, please enter Clinical details in comments. Scheduling Instructions: Comments: Please evaluate Adin Santos for admission to Home Health. [address] [place] [address] [place] [phone] (home) Date of : 1940 Inpatient DOCUMENTATION FOR VNA SERVICES (INCLUDING THOSE PATIENTS WITH MEDICARE COVERAGE REQUIRING HOME VNA SERVICES AND/OR HOSPICE SERVICES) PATIENT'S LOCATION: Adin Santos [address] [facility] [phone] (home) Cell: Telephone Information: Traveling Representative's Name: self In discussion with the attending physician, it is certified that this patient is under their care and that they, or a Nurse Practitioner, Clinical Nurse specialist or Physician Light Bulb Tester who is working directly with them, had [...] regarding health issues HOME HEALTH CARE AGENCY: [facility] [address] [place] [address] START OF CARE: within 24-48 hours of [...] Mathews MD [address] / [facility] [address] . All A agencies which cover the [...] MD / Dr. Masood Pierson [address] [place] [address] 11/09/23 1:55 PM arrival for 2:10 PM appointment Specialty Trimmer: Izaiah Meyer MD [address] [place] [address] , 11/24/2023 10:40 AM Your Inpatient Medical Team at [facility] Name(s) of your inpatient provider(s): Attending physician: Rosa Hugo MD Resident physicians: Emile Robles MD; Elmer Tamez MD If you have non-emergent questions, prior to your follow-up visit call: Tuesday-Tuesday between the hours of 8AM-5PM please call the Cardiology Clinic [phone] to speak with a nurse. All other hours please call the Hospital Process Safety Engineer [phone] and ask to speak to the cardiology physician on-call. Your Primary Care Provider Rosie Mathews MD [phone] For questions regarding this document or issues relating to this hospitalization on the Medical Service, please contact your inpatient physician through the [facility] Process Safety Engineer . Issues afterhours and on weekends will be handled by the Specialty Trimmer staff on-call. Associated attestation - Rosa Hugo [...] MD / Dr. Masood Pierson [address] [place] [address] 11/09/23 1:55 PM arrival for 2:10 PM appointment Specialty Trimmer: Izaiah Meyer MD [address] [place] [address] , 11/24/2023 10:40 AM Your Inpatient Medical Team at [facility] Name(s) of your inpatient provider(s): Attending physician: Rosa Hugo MD Resident physicians: Emile Robles MD; Elmer Tamez MD If you have non-emergent questions, prior to your follow-up visit call: Tuesday-Tuesday between the hours of 8AM-5PM please call the Cardiology Clinic [phone] to speak with a nurse. All other hours please call the Hospital Process Safety Engineer [phone] and ask to speak to the cardiology physician on-call. Your Primary Care Provider Rosie Mathews MD [phone] documented in this encounter Medications at Time [...] [facility] a [facility] [...] Resident on Cardiology Service Cardiology S1 (Pager [phone]) Note written in conjunction with [facility] Medical Student, MS3 Associated attestation [...] Nirmala Webb - 11/01/2023 11:25 AM EDT Cork Grinder Encounter Note Patient Name: Adin Santos : [id number] MR#: [id number] Admit Date: 10/30/2023 5:11 PM Hospital Day 2 days Narrative: Self initiated visit to patient for Spiritual support in a regular unit rounds. Assessment: Patient is in the bathroom at the time of this visit. Not a good time for Pharmacist Manager visit. Intervention and Outcome: An attempted [...] [facility] and low lung volumes. 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 Scheduled Medications: [MAR [...] [facility] [...] Resident on Cardiology Service Cardiology S1 (Pager [phone]) Note written in conjunction with [facility] Medical Student, MS3 Associated attestation [...] [facility] as a possible STEMI alert with acute onset chest pain. Active Problems: Active Hospital Problems Diagnosis Unstable angina Resolved Hospital Problems No resolved problems to display. 24 hr events: - Cath'd yesterday with lesion in the proximal RCA (initially thought it was THRESHING MACHINE OPERATOR but they were ableto wire, balloon [...] and low lung volumes. 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 TTE (10/30): Interpretation [...] [facility] [...] Resident on Cardiology Service Cardiology S1 (Pager [phone]) Note written in conjunction with Cl[facility] Medical Student, MS3 Associated attestation [...] PCP: Rosie Mathews MD PCP phone number: [phone] Date of Admission: 10/30/2023 ( Hospital Day 0 days ) Attending:Rosa Cornejo MD ID: Adin Santos is a 83 y.o. female PMH significant for hypertension and hyperlipidemia who presented to [facility] as a transfer from [facility] as a possible STEMI alert with acute onset chest pain. The patient reports that her symptoms initially began on Tuesday when she was walking to [facility] and experienced bilateral arm heaviness while walking with no other symptoms. Then, this afternoon shereports developing bilateral achy shoulder pain and nonradiating substernal left-sided chest pressure that was 7/10 in severity after coming home from [facility]. The patient denies any associated fevers, chills, [...] on repeat, her JAMIE resolved. Cardiology at [facility] was consulted for transfer; the patient was loaded with aspirin 324 mg and ticagrelor 180 mg, started on a heparin drip, and given nitroglycerin with improvement in chest pain. Upon arrival to [facility], the patient was taken directly to the Box Cutter. 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 Assessment & Plan: Adin Santos is a 83 y.o. female PMH significant for hypertension and hyperlipidemia who presented to [facility] HTN HLD transferred with chest from [facility]. BP 217/68, HR 71 EKG [...] information for follow-up [facility], [place] [address] TANESHA BOYCE confirmed with Brittany CARVAJAL that [...] in the room. Electrolytes replaced, see MAR. shift lab technician sites remained C/D/I with baseline ecchymosis unchanged. Pt complained of back pain, lidocaine patch given. Right IV infiltrated during infusion, patient is marked with sharpie, IV removed. See flowsheet for I+O's and safety rounding. Patient is able to make needs known and call capps within reach. PLAN MOVING FORWARD: Monitor Tele, control BP, monitor lab nurse sites, D/C Planning INDIVIDUALIZED FALL [...] an outpatient cardiac rehabilitation program at [facility] was discussed. Patient agrees to [...] above on RA. PT went to lab nurse today. Left fem site oozed [...] FORWARD: Monitor Tele, control BP, monitor lab nurse sites, D/C Planning INDIVIDUALIZED FALL [...] From: Transfer from another hospital Location: [facility] Reason for Hospitalization: chest pain [...] 180 days) Any patient receiving care in [place] must abide by [place] law. The hierarchy [...] (i) The agent with financial power of staff attorney or a conservator appointed in accordance [...] has the electric, gas, oil, or water [employer] threatened to shut off services in your [...] toilet seat Home Address confirmed as: [address] [facility] [address] Social & Family Supports: All names listed below confirmed with patient as current and correct Extended Emergency Contact Information Primary Emergency Contact: Iris Downing Address: [address] [place], [place] [address] [place] [address] Mobile Relation: Child Secondary Emergency Contact: Karen More Address: [address] [facility] Mobile Relation: Child Current Care Provided by: self Provides Primary Care For: no one Caregiver if needed: child(emmanuel), adult Quality of Family relationships: involved, supportive Community Resources being provided currently: other (see comments) (receives [facility] services at home (1xweekly)) Behavioral Health [...] Insurance: N/A Prescription Coverage: Yes Preferred Pharmacy: [facility] [place], [place] - [address] [place] [address] [place] [address] Calvin Status: Patient is a : No Primary Care Provider listed: Masood Pierson MD [phone] Patient/Caregiver Goals of Treatment: home when MR Potential Needs for Transition of Care: home health care Agency Referrals: Not Applicable I have met with the patient to: discuss discharge planning needs. provide the [facility], Office of Care Management letter from the Patient Financial Coordinator pertaining to rehab referrals. provide a letter describing our affiliations within the [facility] and educate about their right to choose where referrals are sent. provide a list of Home Health Agencies / Durable Medical Equipment vendors which serve their preferred geographic area. provided patient with CMS Star Quality Rating handout. They have requested referrals to: [facility] [address] [place] [address] Note routed to a Program Eligibility Specialist who will communicate referrals to facilities [...] results. PO hydralazine added for BP control. shift lab technician sites remain C/D/I, ecchymosis unchanged th roughout shift. See flowsheet for I+O's and safety rounding. Patient is able to make needs known and call capps within reach. PLAN MOVING FORWARD: Monitor Tele, control CP and BP, NPO at MD for cath, monitor lab nurse sites, D/C Planning INDIVIDUALIZED FALL [...] AM EDT Office Visit Cardiology at [address] [address] Izaiah Meyer MD [facility] [place] [address] Scheduled Referrals Name Type Priority Associated Diagnoses [...] [facility] Lymph % 15.2 % [facility] Lymphocytes Abs 1.3 0.9 - 3.2 x10(3)/mc L [facility] Monocyte % 16.9 % [facility] Monocyte Abs 1.4(H) 0.3 - 0.9 x10(3)/mc L [facility] Eos % 3.7 % [facility] Eosinophils Abs 0.3 0.0 - 0.4 x10(3)/mc L [facility] Basophil % 0.5 % [facility] Baso Absolute 0.0 0.0 [...] [facility] [place] [address] * (ABNORMAL) Hemogram (11/03/2023 3:46 AM EDT) White Blood Cell 8.3 4.0 - 9.5 x10(3)/[facility] Red Blood Cell 3.77(L) 4.00 - 5.21 x10(6)/[facility] Hemoglobin 13.1 11.7 - [...] Platelet 181 145 - 357 x10(3)/ L [facility] RDW Standard Deviation 54.7(H) 37.0 - 46.0 [facility] RDW coefficient of variation 14.6(H) 11.5 - 14.1 % [facility] Mean Platelet Volume 11.2 7.6 - 12.9 [facility] LAB[facility]ATORY NRBC% auto 0.0 % [facility] NRBC Absolute 0.000 0.000 - 0.000 x10(3)/ L [facility] Blood 11/03/2023 3:46 AM EDT 11/03/2023 4:11 AM EDT Narrative Resulting Agency Comment Spec In Lab Qamar Gallardo MD HEMATOLOGY ORDERABLE S Performing Organization Address City/[facility]/ZIP Co de Phone Number [facility] [place] [address] * Phosphorus (11/03/2023 3:46 AM EDT) Phosphorus 3.2 2.5 - 4.5 mg/dL [facility] Comment:result rechecked-KS Blood 11/03/2023 3:46 AM EDT 11/03/2023 4:11 AM EDT Narrative Resulting Agency Comment Spec In Lab Rosa Cornejo MD CHEMISTRY ORDERABLE S Performing Organization Address [facility]/ZIP Co de Phone Number [facility] [place] [address] * Magnesium (11/03/2023 3:46 AM EDT) Magnesium 0.90 0.69 - 1.07 mmol/L [facility] Blood 11/03/2023 3:46 AM EDT 11/03/2023 4:11 AM EDT Narrative Resulting Agency Comment Spec In Lab Rosa Cornejo MD CHEMISTRY ORDERABLE S Performing Organization Address City/[facility]/ZIP Co de Phone Number [facility] [place] [address] * (ABNORMAL) Basic Metabolic Panel (non-fasting) (11/03/2023 [...] [facility] [place] [place] [address] * EKG 12 Lead (11/02/2023 12:44 PM EDT) Ventricular rate 83 BPM MUSE SYSTEM Atrial Rate 83 BPM MUSE SYSTEM P-R Interval 216 ms MUSE SYSTEM QRS Duration 90 ms MUSE SYSTEM Q-T Interval 384 ms MUSE SYSTEM QTC Calculated (Bezet) 451 ms MUSE SYSTEM Calculated P Huntington 92 degrees MUSE SYSTEM Calculated R Huntington -51 degrees MUSE SYSTEM Calculated T Huntington -33 degrees MUSE SYSTEM INTERPRETATION Sinus rhythm with 1st degree A-V block with Premature atrial complexes Left axis deviation Moderate voltage criteria for LVH, may be normal variant ( R in aVL , [place] product ) Anterolatera l infarct (cited on or before 01-NOV-2023) Abnormal ECG When compared with ECG of 01-NOV-2023 22:10, Premature atrial complexes are now Present IN interval has increased Vent. rate has decreased [...] [facility] [place] [address] * (ABNORMAL) Urinalysis with reflex [...] Center LABORATORY Appearance, Urine Dipstick Cloudy(A) Clear [facility] Specific [place] Urine Automated >=1.030(A) 1.005 - 1.030 WHITE [...] [facility] [place] [address] * Respiratory Panel PCR (11/02/2023 10:15 AM EDT) Respiratory Panel Source [facility] Swab [facility] Respiratory Panel PCR Negative Negative [facility] Comment: Respiratory Panels are performed on the [employer], using multiplexed PCR nucleic acid detection. ??Negative [...] performed using the Bio[employer] Respiratory Panel 2.1 (EndorphMe) as authorized by the FDA issued Emergency Use Authorization (EUA). This panel also tests for multiple other viral and bacterial pathogens. This assay is intended for In-vitro Diagnostic (IVD) use with nasopharyngeal swabs in viral transport media. The assay is performed based on the instructions for use and additional guidance provided by the FDA. Testing is performed in laboratories within the [facility], each of which is certified under [...] fact sheets at the following FDA website: https://www.fda.gov/medical-devices/ufkebcskrmk-wtnsrbz-9971-efvmz-32-cazfzotnw- use-a bcwwkaqvwoazk-oouibzs-ngagout/sqjrr-awmbdpzesff-wbhg Human Metapneumovirus Not Detected Not Detected WHITE [...] [facility] [place] [address] * XR Chest One View (11/02/2023 2:51 AM EDT) WORKSTATION ID [id number] DH RAD Anatomical Region Laterality Modality Chest [...] have questions please contact the health care tech that requested your imaging first. ? Electronically signed by: Omaira Tran MD, [facility] ([phone]), at 11/02/2023 4:56 AM Narrative 11/02/2023 4:56 [...] who have questions please contactthe health care tech that requested your imaging first. Electronically signed by: Omaira Tran MD, [facility]([phone]), at 11/02/2023 4:56 AM Rosa Hugo MD IMG DX ORDERABLES * (ABNORMAL) Differential, Automated (11/02/2023 12:35 AM EDT) Neutrophil % 76.5 % [facility] Neutrophil Absolute 7.69(H) 1.70 - 6.10 x10(3)/mc L [facility] Lymph % 8.3 % [facility] Lymphocytes Abs 0.8(L) 0.9 - 3.2 x10(3)/mc L [facility] Monocyte % 12.9 % [facility] Monocyte Abs 1.3(H) 0.3 - 0.9 x10(3)/mc L [facility] Eos % 1.4 % [facility] Eosinophils Abs 0.1 0.0 - 0.4 x10(3)/mc L [facility] Basophil % 0.4 % [facility] Baso Absolute 0.0 0.0 [...] Absolute 0.05(H) 0.00 - 0.04 x10(3)/ L [facility] Blood 11/02/2023 12:3 5 AM EDT 11/02/2023 12:43 AM EDT Narrative Resulting Agency Comment Spec In Lab Qamar Gallardo MD HEMATOLOGY ORDERABLE S [facility] [place] [address] * (ABNORMAL) Hemogram (11/02/2023 12:35 AM EDT) [...] MEDICAL CENTER LABORATORY NRBC% auto 0.0 % [facility] NRBC Absolute 0.000 0.000 - 0.000 x10(3)/mc L [facility] Blood 11/02/2023 12:3 5 AM EDT 11/02/2023 12:43 AM EDT Narrative Resulting Agency Comment Spec In Lab Qamar Gallardo MD HEMATOLOGY ORDERABLE S [facility] [place] [address] * (ABNORMAL) Phosphorus (11/02/2023 12:35 AM EDT) Phosphorus 1.6(L) 2.5 - 4.5 mg/dL [facility] Blood 11/02/2023 12:3 5 AM EDT 11/02/2023 12:43 AM EDT Narrative Resulting Agency Comment Spec In Lab Rosa Cornejo MD CHEMISTRY ORDERABLE S Performing Organization Address [facility]/ZIP Co de Phone Number [facility] [place] [address] * Magnesium (11/02/2023 12:35 AM EDT) Magnesium 0.87 0.69 - 1.07 mmol/L [facility] Blood 11/02/2023 12:3 5 AM EDT 11/02/2023 12:43 AM EDT Narrative Resulting Agency Comment Spec In Lab Rosa Cornejo MD CHEMISTRY ORDERABLE S Performing Organization Address City/[facility]/ZIP Co de Phone Number [facility] [place] [address] * Basic Metabolic Panel (non-fasting) (11/02/2023 12:35 [...] [facility] [place] [address] * Blood culture (11/02/2023 12:35 AM EDT) Blood Culture No growth at 5 days. [facility] Blood 11/02/2023 12:3 5 AM EDT 11/02/2023 1:55 AM EDT Comment:#2 site ukn Narrative Resulting Agency Comment Spec In Lab Rosa Hugo MD MICROBIOLOGY - BLO OD ORDERABLES Performing Organization Address [facility] Co de Phone Number [facility] [place] [address] * Blood culture (11/02/2023 12:15 AM EDT) Blood Culture No growth at 5 days. [facility] Blood 11/02/2023 12:1 5 AM EDT 11/02/2023 1:54 AM EDT Comment:#1site unk Narrative Resulting Agency Comment Spec In Lab Rosa Hugo MD MICROBIOLOGY - BLO OD ORDERABLES Performing Organization Address [facility] Co de Phone Number [facility] [place] [address] * EKG 12 Lead (11/01/2023 10:10 PM EDT) Ventricular rate 139 BPM MUSE SYSTEM Atrial Rate 139 BPM MUSE SYSTEM P-R Interval 168 ms MUSE SYSTEM QRS Duration 84 ms MUSE SYSTEM Q-T Interval 286 ms MUSE SYSTEM QTC Calculated (Bezet) 435 ms MUSE SYSTEM Calculated R Huntington -59 degrees MUSE SYSTEM Calculated T Huntington -27 degrees MUSE SYSTEM INTERPRETATION Mid-RP tachycardia, consider sinus tachycardia or SVT Left axis deviation Moderate voltage criteria for LVH, may be normal variant ( R in aVL , [place] product ) Inferior infarct (cited on or before 01-NOV-2023) Anterolateral infarct (cited on or before 01-NOV-2023) Abnormal ECG When compared with ECG of 01-NOV-2023 15:22, Vent. rate Although rate has increased Serial changes of Anterior infarct Present I personally reviewed the tracing and edited the fellows interpretation Confirmed by fellow MD Bowen Ashley ([id number]) on 11/04/2023 7:57:50 AM Confirmed by MD Carrillo Danette ([id number]) on 11/04/2023 4:32:03 PM MUSE SYSTEM 11/01/2023 10:1 0 PM EDT 11/04/2023 4:32 PM EDT Rosa Cornejo MD ECG ORDERABLES MUSE SYSTEM * (ABNORMAL) Hemogram (11/01/2023 10:06 PM EDT) White Blood Cell 10.4(H) 4.0 - 9.5 x10(3)/[facility] LABORATORY Red Blood Cell 4.11 4.00 - 5.21 x10(6)/[facility] LABORATORY Hemoglobin 14.0 11.7 - [...] Platelet 197 145 - 357 x10(3)/ L [facility] RDW Standard Deviation 54.0(H) 37.0 - 46.0 fL [facility] RDW coefficient of variation 14.6(H) 11.5 - 14.1 % [facility] Mean Platelet Volume 11.2 7.6 - 12.9 fL [facility] NRBC% auto 0.0 % [facility] NRBC Absolute 0.000 0.000 - 0.000 x10(3)/ L [facility] Blood 11/01/2023 10:0 6 PM EDT 11/01/2023 10:22 PM EDT Narrative Resulting Agency Comment Spec In Lab Rosa Hugo MD HEMATOLOGY ORDERAB LES Performing Organization Address City/[facility]/ZIP Co de Phone Number [facility] [place] [address] * POCT Glucose (11/01/2023 5:59 PM EDT) [facility] Signature Glucose, POC 104 65 - 199 mg/dL [facility] Comment: Supplemental ranges: <140 mg/dL before meals <180 mg/dL all other times of the day Blood 11/01/2023 5:59 PM EDT 11/01/2023 5:59 PM EDT Rosa Hugo MD POINT OF CARE TEST ORDERABLES Performing Organization Address [facility] Co de Phone Number [facility] [place] [address] * POCT Glucose (11/01/2023 5:35 PM EDT) [facility] Glucose, POC 85 65 - 199 mg/dL [facility] Comment: Supplemental ranges: <140 mg/dL before meals <180 mg/dL all other times of the day Blood 11/01/2023 5:35 PM EDT 11/01/2023 5:35 PM EDT Rosa Hugo MD POINT OF CARE TEST ORDERABLES Performing Organization Address City/[facility] Co de Phone Number [facility] [place] [address] * EKG 12 Lead (11/01/2023 3:22 PM EDT) Ventricular rate 59 BPM MUSE SYSTEM Atrial Rate 59 BPM MUSE SYSTEM P-R Interval 220 ms MUSE SYSTEM QRS Duration 94 ms MUSE SYSTEM Q-T Interval 428 ms MUSE SYSTEM QTC Calculated (Bezet) 423 ms MUSE SYSTEM Calculated P Huntington 76 degrees MUSE SYSTEM Calculated R Huntington -50 degrees MUSE SYSTEM Calculated T Huntington -59 degrees MUSE SYSTEM INTERPRETATION Sinus bradycardia [...] Modality Other Narrative 11/02/2023 4:57 PM EDT ?[facility] ? Cardiac Catheterization/Intervention Report ? Patient Name: Adin Santos ? Procedure Date: 11/01/2023 ? A #: [id number] ? Primary Physician: Rosa Dewey I ? Case #: [id number] ? File Name: [id number] ? Catheterization Order Number: [id number] ? [facility] ? Final Report [place], [place] ? Patient Name: ? Adin M. Goguen ?ID#: ?[id number] ? : ?1940 ? Procedure Date: ? [...] was Urgent. The indication for ?the lab nurse visit is ACS greater than [...] ??A premounted ? 3.50 x 15 mm [place] (RADHA) was deployed with a maximum ? [...] A premounted 3.50 x 15 mm Andrea [place] (RADHA) was deployed ? with a maximum [...] administered prior to arrival in the lab nurse. ?Recommended anti-platelet/anti-thrombotic regimen: ?Continue aspirin [...] Procedure Note Rosa Dewey MD - 12/12/2023 [facility] Cardiac Catheterization/Intervention Report Patient Name: Adin Santos Procedure Date: 11/01/2023 A #: [id number] Primary Physician: Rosa Dewey I Case #: [id number] File Name: [id number] Catheterization Order Number: [id number] [facility] FinalReport [place], [place] Patient Name: Adin Santos ID#:[id number] :1940 Procedure Date: November 01, 2023 Case [...] as ASA Class III. The [facility] frailty scale is 4: Vulnerable. Diagnostic Tests: Prior Coronary Angiography: LV ejection fraction within 6 months is 65%. Electrocardiography: EKG was assessed by ECG. EKG was Abnormal. EKG showed other abnormality. Medications Prior to Procedure: Aspirin, Angiotensin II Receptor Rodrick and Statin. Indications for Diagnostic Cath: The priority of the diagnostic procedure was Urgent. The indicationfor the lab nurse visit is ACS greater than [...] 14 atmospheres. Apremounted 3.50 x 15 mm [place] (RADHA) was deployed with amaximum inflation pressure [...] The lesion was predilated with a 3.00mm OHFPCTL06 MM balloon with a maximum inflation pressure of 14atmospheres. A premounted 3.50 x 15 mm [place] (RADHA) wasdeployed with a maximum inflation pressure [...] administered prior to arrival in the lab nurse. Recommended anti-platelet/anti-thrombotic regimen: Continue aspirin [...] * POCT Glucose (11/01/2023 7:06 AM EDT) [facility] Glucose, POC 93 65 - 199 mg/dL [facility] Comment: Supplemental ranges: <140 mg/dL before meals <180 mg/dL all other times of the day Blood 11/01/2023 7:06 AM EDT 11/01/2023 7:06 AM EDT Jean Laboy MD POINT OF CARE TEST O RDERABLES [facility] [place] [address] * (ABNORMAL) Differential, Automated (11/01/2023 3:09 AM EDT) Pathologist [facility] Neutrophil % 63.9 % [facility] Neutrophil Absolute 5.54 1.70 - 6.10 x10(3)/mc L [facility] Lymph % 20.0 % [facility] Lymphocytes Abs 1.7 0.9 - 3.2 x10(3)/mc L [facility] Monocyte % 11.9 % [facility] Monocyte Abs 1.0(H) 0.3 - 0.9 x10(3)/mc L [facility] Eos % 3.2 % [facility] Eosinophils Abs 0.3 0.0 - 0.4 x10(3)/ L [facility] Basophil % 0.5 % [facility] Baso Absolute 0.0 0.0 [...] [facility] [place] [place] [address] * (ABNORMAL) Hemogram (11/01/2023 3:09 AM EDT) [...] MEDICAL CENTER LABORATORY NRBC% auto 0.0 % [facility] NRBC Absolute 0.000 0.000 - 0.000 x10(3)/mc L [facility] Blood 11/01/2023 3:09 AM EDT 11/01/2023 3:29 AM EDT Narrative Resulting Agency Comment Spec In Lab Qamar Gallardo MD HEMATOLOGY ORDERABLE S Performing Organization Address City/[facility]/ZIP Co de Phone Number [facility] [place] [address] * Phosphorus (11/01/2023 3:09 AM EDT) Phosphorus 2.5 2.5 - 4.5 mg/dL [facility] Blood 11/01/2023 3:09 AM EDT 11/01/2023 3:29 AM EDT Narrative Resulting Agency Comment Spec In Lab Rosa Cornejo MD CHEMISTRY ORDERABLE S Performing Organization Address City/[facility]/ZIP Co de Phone Number [facility] [place] [address] * Magnesium (11/01/2023 3:09 AM EDT) Magnesium 0.82 0.69 - 1.07 mmol/L [facility] Blood 11/01/2023 3:09 AM EDT 11/01/2023 3:29 AM EDT Narrative Resulting Agency Comment Spec In Lab Rosa Cornejo MD CHEMISTRY ORDERABLE S [facility] [place] [address] * (ABNORMAL) Basic Metabolic Panel (non-fasting) (11/01/2023 [...] [facility] [place] [place] [address] * (ABNORMAL) Troponin (10/31/2023 2:46 PM EDT) [...] troponin value can be found in the [facility] Test Catalog Troponin - [facility] Test Catalog Reference: Fourth [place] Definition of Myocardial Infarction. Journal of the [place] [employer] 2018;72:7532-9287 Blood 10/31/2023 2:46 PM EDT 10/31/2023 2:55 PM EDT Narrative Resulting Agency Comment Spec In Lab Jean Laboy MD CHEMISTRY ORDERABLES Performing Organization Address [facility] Co de Phone Number [facility] [place] [address] * EKG 12 Lead (10/31/2023 1:07 PM EDT) Ventricular rate 54 BPM MUSE SYSTEM Atrial Rate 54 BPM MUSE SYSTEM P-R Interval 218 ms MUSE SYSTEM QRS Duration 92 ms MUSE SYSTEM Q-T Interval 540 ms MUSE SYSTEM QTC Calculated (Bezet) 512 ms MUSE SYSTEM Calculated P Huntington 85 degrees MUSE SYSTEM Calculated R [place] -44 degrees MUSE SYSTEM Calculated T Huntington -69 degrees MUSE SYSTEM INTERPRETATION Sinus bradycardia [...] Cornejo MD ECG ORDERABLES Performing Organization Address [facility] Co de Phone Number MUSE SYSTEM * (ABNORMAL) Troponin (10/31/2023 11:37 AM EDT) Pathologist [facility] Troponin-T, High Sensitivity 580(H) <=14 ng/L WHITE [...] troponin value can be found in the [facility] Test Catalog Troponin - [facility] Test Catalog Reference: Fourth [place] Definition of Myocardial Infarction. Journal of the [place] [employer] 2018;72:2636-0039 Blood 10/31/2023 11:3 7 AM EDT 10/31/2023 11:50 AM EDT Narrative Resulting Agency Comment Spec In Lab Rosa Cornejo MD CHEMISTRY ORDERABLE S [facility] [place] [address] * ECHO COMPLETE (10/31/2023 8:52 AM EDT) Anatomical Region Laterality Modality Cardiac Other 10/31/2023 7:57 AM EDT Narrative 10/31/2023 9:45 AM EDT [address] [place] [address] ? Echocardiogram Report Name: ADIN SANTOS ? Study Date: 10/31/2023 07:57 AMBP: 106/76 mmHg ? Patient Location: [facility] 0[facility] A : 1940 ? Height: 163 cm ? Account: [id number] Age: 83 yrs ? Weight: 76 kg Gender: Female ?BSA: 1.8 m2 Ordering Physician: ROSA DEWEY Referring Physician: OMAIRA GIRON Performed By: HAFSA Carmichael Reason For Study: STEMI Interpreting Fellow: Raymond Warren. Exam Location: [facility]. Interpretation Summary -The left ventricle [...] is no prior echocardiogram for comparison. Procedure Complete-04708. Satisfactory quality. There is sinus bradycardia. Left [...] Note Edgard Wang MD - 10/31/2023 [address] [place] [id number] Echocardiogram Report Name: TREY SANTOSMarco A Catherine Study Date: 407:57 AMBP: 106/76 mmHg Patient Location: [address] : 1940 Height: 163 cm Account: [id number] Age: 83 yrs Weight: 76 kg Gender: Female BSA: 1.8 m2 Ordering Physician: ROSA DEWEY Referring Physician: OMAIRA GIRON Performed By: HAFSA Carmichael Reason For Study: STEMI Interpreting Fellow: Raymond Warren. Exam Location: [facility]. Interpretation Summary -The left ventricle [...] is no prior echocardiogram for comparison. Procedure Complete-30503. Satisfactory quality. There is sinus bradycardia. Left [...] troponin value can be found in the [facility] Test Catalog Troponin - [facility] Test Catalog Reference: Fourth [place] Definition of Myocardial Infarction. Journal of the [place] [employer] 2018;72:9223-5652 Blood 10/31/2023 8:51 AM EDT 10/31/2023 9:12 AM EDT Narrative Resulting Agency Comment Spec In Lab Rosa Cornejo MD CHEMISTRY ORDERABLE S Performing Organization Address City/State/[facility] Co de Phone Number [facility] [place] [address] * CARDIAC CATHETERIZATION (10/31/2023 8:10 AM EDT) Anatomical Region Laterality Modality Other Narrative 11/07/2023 9:42 AM EDT ?[facility] ? Cardiac Catheterization/Intervention Report ? Patient Name: Adin Santos M. ? Procedure Date: 10/30/2023 ? A #: [id number] ? Primary Physician: Rosa Dewey I ? Case #: [id number] ? File Name: [id number] ? Catheterization Order Number: [id number] ? [facility] ? Final Report [place], [place] ? Patient Name: ? Adin M. Goguen ?ID#: ?[id number] ? : ?1940 ? Procedure Date: ? October 30, 2023 ? Case #: ? [id number] ? Room: ? 5 ? Case Physician: [...] was Emergent. The indication for ?the lab nurse visit is ACS less than [...] A premounted 4.00 x 38 mm [place] (RADHA) was deployed ? with a maximum [...] administered prior to arrival in the lab nurse. ?Recommended anti-platelet/anti-thrombotic regimen: ?Continue aspirin [...] Procedure Note Rosa Dewey MD - 12/05/2023 [facility] Cardiac Catheterization/Intervention Report Patient Name: Adin Santos Procedure Date: 10/30/2023 A #: [id number] Primary Physician: Rosa Dewey I Case #: [id number] File Name: [id number] Catheterization Order Number: [id number] [facility] FinalReport [place], [place] Patient Name: Adin Santos ID#:[id number] :1940 Procedure Date: October 30, 2023 Case [...] was designated as ASA Class III. The [facility] clinical frailtyscale is 5: Mildly Frail. Diagnostic Tests: Electrocardiography: EKG was assessed by ECG. EKG was Abnormal. EKG showed STDeviation >= 0.5 mm, other abnormality and dynamic EKG changes. Medications Prior to Procedure: Aspirin, Angiotensin II Receptor Rodrick, Beta Rodrick andStatin. Indications for Diagnostic Cath: The priority of the diagnostic procedure was Emergent. Theindication for the lab nurse visit is ACS less than [...] 16atmospheres. A premounted 4.00 x 38 mm [place] (RADHA) wasdeployed with a maximum inflation pressure [...] administered prior to arrival in the lab nurse. Recommended anti-platelet/anti-thrombotic regimen: Continue aspirin [...] * (ABNORMAL) Troponin (10/31/2023 4:21 AM EDT) [facility] Troponin-T, High Sensitivity 457(H) <=14 ng/L [...] troponin value can be found in the [facility] Test Catalog Troponin - [facility] Test Catalog Reference: [place] Definition of Myocardial Infarction. Journal of the [place] [employer] 2018;72:3351-7002 Blood 10/31/2023 4:21 AM EDT 10/31/2023 4:30 AM EDT Narrative Resulting Agency Comment Spec In Lab Rosa Cornejo MD CHEMISTRY ORDERABLE S Performing Organization Address City/State/[facility] Co de Phone Number [facility] [place] [address] * (ABNORMAL) Differential, Automated (10/31/2023 3:05 AM EDT) Neutrophil % 71.7 % [facility] Neutrophil Absolute 8.21(H) 1.70 - 6.10 x10(3)/mc L [facility] Lymph % 16.9 % [facility] Lymphocytes Abs 1.9 0.9 - 3.2 x10(3)/mc L [facility] Monocyte % 9.4 % [facility] Monocyte Abs 1.1(H) 0.3 - 0.9 x10(3)/mc L [facility] Eos % 1.3 % [facility] Eosinophils Abs 0.2 0.0 - 0.4 x10(3)/mc L [facility] Basophil % 0.4 % [facility] Baso Absolute 0.0 0.0 [...] [facility] [place] [place] [address] * (ABNORMAL) Hemogram (10/31/2023 3:05 AM EDT) White Blood Cell 11.5(H) 4.0 - 9.5 x10(3)/ L [facility] Red Blood Cell 3.75(L) 4.00 - 5.21 x10(6)/ L [facility] [...] [facility] NRBC% auto 0.0 % [facility] NRBC Absolute 0.000 0.000 - 0.000 x10(3)/mc L [facility] Blood 10/31/2023 3:05 AM EDT 10/31/2023 3:13 AM EDT Narrative Resulting Agency Comment Spec In Lab Qamar Gallardo MD HEMATOLOGY ORDERABLE S Performing Organization Address [facility] Co de Phone Number [facility] [place] [address] * (ABNORMAL) APTT (10/31/2023 3:05 AM EDT) [...] Performing Organization Address [facility] Co de Phone Number [facility] [place] [address] * (ABNORMAL) Prothrombin Time (10/31/2023 3:05 AM [...] [facility] [place] [address] * (ABNORMAL) Differential, Automated (10/31/2023 1:37 AM EDT) Neutrophil % 71.1 % [facility] Neutrophil Absolute 7.53(H) 1.70 - 6.10 x10(3)/mc L [facility] Lymph % 18.0 % [facility] Lymphocytes Abs 1.9 0.9 - 3.2 x10(3)/mc L [facility] Monocyte % 8.7 % [facility] Monocyte Abs 0.9 0.3 - 0.9 x10(3)/mc L [facility] Eos % 1.6 % [facility] Eosinophils Abs 0.2 0.0 - 0.4 x10(3)/mc L [facility] Basophil % 0.4 % [facility] Baso Absolute 0.0 0.0 [...] [facility] [place] [address] * (ABNORMAL) Hemogram (10/31/2023 1:37 AM EDT) [...] MEDICAL CENTER LABORATORY NRBC% auto 0.0 % [facility] NRBC Absolute 0.000 0.000 - 0.000 x10(3)/mc L [facility] Blood 10/31/2023 1:37 AM EDT 10/31/2023 1:46 AM EDT Narrative Resulting Agency Comment Spec In Lab Qamar Gallardo MD HEMATOLOGY ORDERABLE S [facility] [place] [address] * Phosphorus (10/31/2023 1:37 AM EDT) [facility] Phosphorus 3.2 2.5 - 4.5 mg/dL [facility] Blood 10/31/2023 1:37 AM EDT 10/31/2023 1:46 AM EDT Narrative Resulting Agency Comment Spec In Lab Rosa Cornejo MD CHEMISTRY ORDERABLE S Performing Organization Address City/[facility]/ZIP Co de Phone Number [facility] [place] [address] * Magnesium (10/31/2023 1:37 AM EDT) [facility] Magnesium 0.83 0.69 - 1.07 mmol/L [facility] Blood 10/31/2023 1:37 AM EDT 10/31/2023 1:46 AM EDT Narrative Resulting Agency Comment Spec In Lab Rosa Cornejo MD CHEMISTRY ORDERABLE S Performing Organization Address City/[facility]/ZIP Co de Phone Number [facility] [place] [address] * Basic Metabolic Panel (non-fasting) (10/31/2023 1:37 AM EDT) [facility] Glucose 114 65 - 199 mg/dL WHITE [...] [facility] [place] [address] * (ABNORMAL) Troponin (10/31/2023 1:37 AM EDT) [...] troponin value can be found in the [facility] Test Catalog Troponin - [facility] Test Catalog Reference: [place] Definition of Myocardial Infarction. Journal of the [place] [employer] 2018;72:1949-3101 Blood 10/31/2023 1:37 AM EDT 10/31/2023 1:46 AM EDT Narrative Resulting Agency Comment Spec In Lab Rosa Cornejo MD CHEMISTRY ORDERABLE S Performing Organization Address City/State/[facility] [place] [address] * EKG 12 Lead (10/31/2023 1:20 AM EDT) Ventricular rate 52 BPM MUSE SYSTEM Atrial Rate 52 BPM MUSE SYSTEM P-R Interval 224 ms MUSE SYSTEM QRS Duration 108 ms MUSE SYSTEM Q-T Interval 544 ms MUSE SYSTEM QTC Calculated (Bezet) 505 ms MUSE SYSTEM Calculated P Huntington 90 degrees MUSE SYSTEM Calculated R [place] -57 degrees MUSE SYSTEM Calculated T [place] -63 degrees MUSE SYSTEM INTERPRETATION Sinus bradycardia with 1st degree A-V block Pulmonary disease pattern Left anterior fascicular block Moderate voltage criteria for LVH, may be normal variant ( R in aVL , [place] product ) T wave abnormality, consider inferior ischemia T wave abnormality, consider anterolateral ischemia Prolonged QT Abnormal ECG When compared with ECG of 30-OCT-2023 22:40, No significant change was found Confirmed by Butch Soto MD (1960) on 11/01/2023 8:58:03 PM MUSE SYSTEM 10/31/2023 1:20 AM EDT 11/01/2023 8:58 PM EDT Rosa Cornejo MD ECG ORDERABLES Performing Organization Address [facility] de Phone Number MUSE SYSTEM * EKG 12 Lead (10/30/2023 10:40 PM EDT) Ventricular rate 55 BPM MUSE SYSTEM Atrial Rate 55 BPM MUSE SYSTEM P-R Interval 232 ms MUSE SYSTEM QRS Duration 102 ms MUSE SYSTEM Q-T Interval 520 ms MUSE SYSTEM QTC Calculated (Bezet) 497 ms MUSE SYSTEM Calculated P [place] 75 degrees MUSE SYSTEM Calculated R [place] -53 degrees MUSE SYSTEM Calculated T [place] -57 degrees MUSE SYSTEM INTERPRETATION Sinus bradycardia with 1st degree A-V block Left anterior fascicular block Moderate voltage criteria for LVH, may be normal variant ( R in aVL , [place] product ) T wave abnormality, consider inferior ischemia T wave abnormality, consider anterolateral ischemia Prolonged QT Abnormal ECG When compared with ECG of 30-OCT-2023 20:21, Incomplete right bundle branch block is no longer Present Confirmed by Charles COFFMAN, Butch (1960) on 11/01/2023 8:58:01 PM MUSE SYSTEM 10/30/2023 10:4 0 PM EDT 11/01/2023 8:58 PM EDT Rosa Cornejo MD ECG ORDERABLES Performing Organization Address [facility] Phone Number MUSE SYSTEM * XR Chest One View (10/30/2023 10:10 PM EDT) WORKSTATION ID [id number] RAD Anatomical Region Laterality Modality Chest N/A Digital Radiogra phy Impressions 10/30/2023 10:32 PM EDT 1. ??Examination limited by low lung volumes. 2. ??Findings suggesting pulmonary vascular congestion with possible mild interstitial edema. 3. ??Known ascending aortic aneurysm, as seen on recent CT. 4. ??Nonspecific widening mediastinum. This can be secondary to magnification from portable technique and low lung volumes. 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 Thank you for letting us participate in the care of this patient. ??If you are a health care provider and have any questions regarding this report, please contact the number below. ??For patients who have questions please contact the health care tech that requested your imaging first. ? Electronically signed by: Wilson Mccartney MD, [facility] ([phone]), at 10/30/2023 10:32 PM Narrative 10/30/2023 10:32 [...] and low lung volumes. 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 Thank you for letting us participate in the care of this patient. If youare a health care provider and have any questions regarding this report,please contact the number below. For patients who have questions please contactthe health care tech that requested your imaging first. Rosa Cornejo MD IMG DX ORDERABLES * Green Tube HOLD (10/30/2023 10:05 PM EDT) [facility] Green Hold Sample in lab. [facility] Blood Venous Draw / Unknown 10/30/2023 10:05 PM EDT 10/30/2023 10:13 PM EDT Qamar Gallardo MD CHEMISTRY ORDERABLES [facility] [place] [address] * (ABNORMAL) Differential, Automated (10/30/2023 10:05 PM EDT) [facility] Neutrophil % 76.6 % [facility] Neutrophil Absolute 6.94(H) 1.70 - 6.10 x10(3)/mc L [facility] Lymph % 15.4 % [facility] Lymphocytes Abs 1.4 0.9 - 3.2 x10(3)/mc L [facility] Monocyte % 6.1 % [facility] Monocyte Abs 0.6 0.3 - 0.9 x10(3)/mc L [facility] Eos % 1.1 % [facility] Eosinophils Abs 0.1 0.0 - 0.4 x10(3)/ L [facility] Basophil % 0.6 % [facility] Baso Absolute 0.0 0.0 [...] [facility] [place] [address] * (ABNORMAL) Hemogram (10/30/2023 10:05 PM EDT) [...] Platelet 211 145 - 357 x10(3)/ L [facility] RDW Standard Deviation 53.6(H) 37.0 - 46.0 fL [facility] RDW coefficient of variation 14.6(H) 11.5 - 14.1 % [facility] Mean Platelet Volume 11.1 7.6 - 12.9 fL [facility] NRBC% auto 0.0 % [facility] NRBC Absolute 0.000 0.000 - 0.000 x10(3)/mc L [facility] Blood 10/30/2023 10:0 5 PM EDT 10/30/2023 10:12 PM EDT Narrative Resulting Agency Comment Spec In Lab Qamar Gallardo MD HEMATOLOGY ORDERABLE S Performing Organization Address City/[facility]/ZIP Co de Phone Number [facility] [place] [address] * Hemoglobin A1c (10/30/2023 10:05 PM EDT) [...] Mellitus, Diabetes Care 2013; 36: Suppl. 1, B21-30 Estimated Average Glucose See note mg/dL [facility] Comment: Estimated Average Glucose not appropriate for patients over 70 years of age. Blood 10/30/2023 10:0 5 PM EDT 10/30/2023 10:12 PM EDT Narrative Resulting Agency Comment Spec In Lab Rosa Cornejo MD CHEMISTRY ORDERABLE S Performing Organization Address City/[facility]/ZIP Co de Phone Number [facility] [place] [address] * Lipid Panel (Reflex Direct LDL) (10/30/2023 10:05 PM EDT) Cholesterol, Total 218 mg/dL [facility] Comment: Desirable: ? <200 mg/dL Borderline High: 200-239 mg/dL Higher: ?>so=793 mg/dL Triglyceride 46 mg/dL [facility] Comment: Normal: ?<150 mg/dL Borderline High: 150-199 mg/dL High: ?200-499 mg/dL Very High: ? >qu=909 mg/dL HDL Cholesterol 64 mg/dL [facility] Comment: Females: High Risk: <50 mg/dL Males: High Risk: <40 mg/dL LDL Cholesterol 145 mg/dL [facility] Comment: Desirable: ? <100 mg/dL Above Desirable: 100-129 mg/dL Borderline High: 130-159 mg/dL High: ?160-189 mg/dL Very High: ? >qc=477 mg/dL Lipid Interpretation See Note [facility] [...] ACC/AHA Guidelines (most recently Feliciano et al. [facility] 03/23/22): For individuals with atherosclerotic cardiovascular disease (ASCVD)or LDL >jj=350 mg/dL, use a high-intensity statin (40-80 mg [...] [facility] [place] [address] * TSH [place] (10/30/2023 10:05 PM EDT) Thyroid Stimulating Hormone 3.35 0.27 - 4.20 mcIU/mL [facility] Comment: Reference Interval (mcIU/mL): Females: ??First Trimester: 0.23-3.88 ??Second Trimester: 0.22-3.90 ??Third Trimester: 0.44-4.66 Blood 10/30/2023 10:0 5 PM EDT 10/30/2023 10:12 PM EDT Narrative Resulting Agency Comment Spec In Lab Rosa Cornejo MD CHEMISTRY ORDERABLE S [facility] [place] [place] [address] * pro-Brain Natriuretic Peptide (10/30/2023 10:05 PM EDT) NT-proBNP 375 <=449 pg/mL [facility] Blood 10/30/2023 10:0 5 PM EDT 10/30/2023 10:12 PM EDT Narrative Resulting Agency Comment Spec In Lab Rosa Cornejo MD CHEMISTRY ORDERABLE S Performing Organization Address [facility]/ZIP Co de Phone Number [facility] [place] [place] [address] * (ABNORMAL) Comprehensive metabolic panel (non-fasting) (10/30/2023 10:05 PM EDT) Pathologist [facility] Glucose 121 65 - 199 mg/dL WHITE [...] MD CHEMISTRY ORDERABLE S Performing Organization Address City/[facility]/ZIP Co de Phone Number [facility] [place] [address] * Phosphorus (10/30/2023 10:05 PM EDT) Phosphorus 3.3 2.5 - 4.5 mg/dL [facility] Blood 10/30/2023 10:0 5 PM EDT 10/30/2023 10:12 PM EDT Narrative Resulting Agency Comment Spec In Lab Rosa Cornejo MD CHEMISTRY ORDERABLE S Performing Organization Address City/[facility]/ZIP Co de Phone Number [facility] [place] [address] * Magnesium (10/30/2023 10:05 PM EDT) Magnesium 0.86 0.69 - 1.07 mmol/L [facility] Blood 10/30/2023 10:0 5 PM EDT 10/30/2023 10:12 PM EDT Narrative Resulting Agency Comment Spec In Lab Rosa Cornejo MD CHEMISTRY ORDERABLE S [facility] [place] [address] * (ABNORMAL) Troponin (10/30/2023 10:05 PM EDT) [...] troponin value can be found in the [facility] Test Catalog Troponin - [facility] Test Catalog Reference: Fourth [place] Definition of Myocardial Infarction. Journal of the [place] [employer] 2018;72:6690-4964 Blood 10/30/2023 10:0 5 PM EDT 10/30/2023 10:12 PM EDT Narrative Resulting Agency Comment Spec In Lab Rosa Cornejo MD CHEMISTRY ORDERABLE S [facility] [place] [place] [address] * EKG 12 Lead (10/30/2023 8:21 PM EDT) Ventricular rate 49 BPM MUSE SYSTEM Atrial Rate 49 BPM MUSE SYSTEM P-R Interval 230 ms MUSE SYSTEM QRS Duration 96 ms MUSE SYSTEM Q-T Interval 526 ms MUSE SYSTEM QTC Calculated (Bezet) 475 ms MUSE SYSTEM Calculated P [place] 98 degrees MUSE SYSTEM Calculated R [place] -48 degrees MUSE SYSTEM Calculated T [place] -51 degrees MUSE SYSTEM INTERPRETATION Sinus bradycardia [...] Cornejo MD ECG ORDERABLES Performing Organization Address City/[facility] Co de Phone Number MUSE [...] documented as of this encounter Care Teams News Specialist Relationship Specialty Start Date End Date Rosie Mathews MD [address] [place] [address] PCP - General Family Medicine 11/25/17 11/23/23 documented as of this encounter
--- OUTSIDE RECORDS SUMMARY | 2024-03-09 10:35 | XMS_ITS | Encounter Summary ---
Author Organization [facility] Address [address] [place] [address] Care Team Providers Care Fence Making Machine Operator Name Role Phone Kirsten Bateman MD Primary Care Provider [phone] Encounter Details Date Type Department Care Team (Late st Contact Info) Description 01/14/2010 Abstract Used for ABSTRACTING Data [phone] Kirsten Bateman MD [address] [place] [address] Social History Tobacco Use Types [...] OIL/COCONUT OIL (FATTY ACID BASE MISC) by [facility].(Non-Drug; Combo Route) route. EPA CYANOCOBALAMIN (VITAMIN B-12 ORAL) Take by mouth. ASCORBIC ACID (VITAMIN C ORAL) Take by mouth. VITAMIN E ACETATE (VITAMIN E ORAL) Take by mouth. ASPIRIN ORAL Take by mouth. AMITRIPTYLINE HCL (AMITRIPTYLINE ORAL) Take by mouth. ATENOLOL ORAL Take by mouth. SIMVASTATIN ORAL Take by mouth. added in this encounter Care Teams Fence Making Machine Operator Relationship Specialty Start Date End Date Kirsten Bateman MD [address] [place] [phone] PCP - General 01/13/10 documented as of this encounter
--- OUTSIDE RECORDS SUMMARY | 2024-03-09 10:35 | XMS_ITS | Encounter Summary ---
Author Organization [facility] Address [facility] [place] [address] Care Team Providers Care Clay Carman Name Role Phone Rosie Mathews MD Primary Care Provider [phone] Encounter Details Date Type Department Care Team (Late st Contact Info) Description 10/30/2023 [place] [address] Jose Lee MD [facility] [place] [address] Social History Tobacco Use Types Packs/Day Years Used Date Smoking Tobacco: Former Smokeless Tobacco: Never Alcohol Use Standard Drinks/Week Comments Not Currently 0 (1 standard drink = 0.6 oz pur e alcohol) [facility] Utilities Answer Date Recorded In the past 12 months has th e [employer], gas, oil, or water [employer] threatened to shut off services in your [...] AM EDT Office Visit Cardiology at [address] [address] Izaiah Meyer MD [facility] [place] [address] documented as of this encounter Visit Diagnoses Not on filedocumented in this encounter Additional Health Concerns Infection Onset Date Last Indicated Resolved Time Rule Out Respiratory 11/02/2023 11/02/2023 024 12:22 PM EDT Rule Out COVID-19 11/02/2023 11/02/2023 11/02/2023 12:22 PM EDT documented as of this encounter Care Teams Clay Carman Relationship Specialty Start Date End Date Rosie Mathews MD [address] [place] [address] PCP - General Family Medicine 11/25/17 11/23/23 documented as of this encounter
--- OUTSIDE RECORDS SUMMARY | 2024-03-09 10:35 | XMS_ITS | Encounter Summary ---
Author Organization [facility] Address [address] [place] [address] Care Team Providers Care Die Storage Worker Name Role Phone Kirsten Bateman MD Primary Care Provider [phone] Reason for Visit * Reason Comments Hearing Loss tinnitus Encounter Details Date Type Department Care Team (Latest Contact Info) Description 01/15/2010 10:10 EDT Office Visit [address] [address] Unknown, ProviderMD Ray Farooq MD [address] [place] [address] [address] Sensorineural hearing loss, bilateral; Subjective [...] Ray Farooq MD - 01/28/2010 1108 EDT [facility] PROGRESS/FOLLOWUP NOTE - 01/15/2010 CHIEF COMPLAINT: [...] Farooq MD - Ray Farooq MD - [facility] Job ID: SM Doc ID: [id number] Ext Doc ID: [id number] cc: Kirsten Bateman MD * Ray Farooq [...] tinnitus documented in this encounter Care Teams Die Storage Worker Relationship Specialty Start Date End Date Kirsten Bateman MD [address] [place] [address] PCP - General 01/13/10 documented as of this encounter
--- OUTSIDE RECORDS SUMMARY | 2024-03-09 10:35 | XMS_ITS | Encounter Summary ---
Author Organization [facility] Address [facility] [place] [address] Care Team Providers Care Vacuum Pan Tender Name Role Phone Rosie Mathews MD Primary Care Provider Reason for Visit * Reason Comments Skin Lesion * Consultation (Routine) - Closed Specialty Diagnoses / Procedures Referred By John hunt Referred To Contact Dermatology Diagnoses facial skin lesion Procedures pt would like to be seen PRADEEP Rosie Mathews MD [address] [place] [address] [facility] [address] [place] [address] Referral ID Status Reason Start Date Expiration Date V isits Requested Visits Authorized [id number] Closed Consult, Test & Treat Connection Center 10/25/2017 10/25/2018 1 1 Encounter Details Date Type Department Care Team (Late st Contact Info) Description 11/25/2017 4:30 PM EDT Office Visit Dermatology at [facility] [address] [place] [address] Call, Radu Go MD [facility] [address]ER[place] [address] Seborrheic keratosis; Fibrous papule of [...] by Radu Tom MD Resident in Dermatology [facility] Patient seen in conjunction with staff hydrometer calibrator: Terri Hale MD Section of Dermatology [facility] * Terri Hale MD - [...] AM EDT Office Visit Cardiology at [address] [address] Izaiah Meyer MD [facility] [place] [address] documented as of this encounter Visit Diagnoses Diagnosis Seborrheic keratosis Other seborrheic keratosis Fibrous papule of nose Benign neoplasm of skin of other and unspecified parts of face Skin tags, multiple acquired documented in this encounter Care Teams Vacuum Pan Tender Relationship Specialty Start Date End Date Rosie Mathews MD [address] [place] [address] PCP - General Family Medicine 11/25/17 11/23/23 documented as of this encounter
--- OUTSIDE RECORDS SUMMARY | 2024-03-09 10:35 | XMS_ITS | Clinical Summary ---
Author Organization [facility] Address [address] [place] [address] Care Team Providers Care Salon/Spa Manager Name Role Phone Kirsten Bateman MD Primary Care Provider [phone] Allergies Active Allergy Reactions Criticality Noted Date [...] COVID-19 Vaccine (2022- season) 2024 Care Teams Salon/Spa Manager Relationship Specialty Start Date End Date Kirsten Bateman MD [address] [place] [phone] PCP - General 01/13/10
--- OUTSIDE RECORDS SUMMARY | 2024-03-09 10:35 | XMS_ITS | Referral Summary ---
Author Organization [facility] Address [address] [place] [address] Care Team Providers Care Tank Worker Name Role Phone Kirsten Bateman MD Primary Care Provider [phone] Allergies Active Allergy Reactions Criticality Noted Date [...] of Treatment Not on file Care Teams Tank Worker Relationship Specialty Start Date End Date Kirsten Bateman MD [address] [place] [address] [facility] - General 01/13/10
--- OUTSIDE RECORDS SUMMARY | 2024-03-09 10:35 | XMS_ITS | Encounter Summary ---
Author Organization [facility] Address [facility] [place] [address] Care Team Providers Care Count Team Member Name Role Phone Rosie Mathews MD Primary Care Provider [phone] Encounter Details Date Type Department Care Team (Late st Contact Info) Description 10/30/2023 External Results Transfer Center [facility] [place] [address] Social History Tobacco Use Types Packs/Day Years Used Date Smoking Tobacco: Former Smokeless Tobacco: Never Alcohol Use Standard Drinks/Week Comments Not Currently 0 (1 standard drink = 0.6 oz pur e alcohol) [facility] Utilities Answer Date Recorded In the past 12 months has e [employer], gas, oil, or water [employer] threatened to shut off services in your [...] AM EDT Office Visit Cardiology at [address] [address] Izaiah Meyer MD [facility] [place] [address] documented as of this encounter Procedures Procedure [...] on filedocumented in this encounter Care Teams Count Team Member Relationship Specialty Start Date End Date Rosie Mathews MD [address] [place] [address] PCP - General Family Medicine 11/25/17 11/23/23 documented as of this encounter
--- OUTSIDE RECORDS SUMMARY | 2024-03-09 10:35 | XMS_ITS | Encounter Summary ---
Author Organization [facility] Address [address] [place] [address] Care Team Providers Care Railroad Car Repair Supervisor Name Role Phone Kirsten Bateman MD Primary Care Provider [phone] Encounter Details Date Type Department Care Team (Late st Contact Info) Description 01/27/2021 Lab Requisition [facility] Pathology & Laboratory Medicine - [facility] [address] [place] [address] Outr Resulting Lab, Provider Social History Tobacco [...] Outr Resulting Lab MICROBIOLOGY - GENERAL ORDERABLES [facility] [address] [place] [address] * COVID-19 TESTING (01/26/2021 16:45 EDT) COVID-19 rt-PCR Result Negative Negative 01/28/2021 13:31 EDT [facility] Comment: This test has [...] developed and its performance characteristics determined by [facility]. It has not been cleared or [...] defined by the FDA Performed on the AUPEO!o 7 Pro RT-PCR System. Performing Lab [facility] Lab 01/28/2021 13:31 EDT [facility] Swab 01/26/2021 16:4 5 EDT 01/27/2021 15:46 EDT Provider Outr Resulting Lab MICROBIOLOGY - GENERAL ORDERABLES [facility] [address] [place] [address] documented in this encounter Visit Diagnoses Not on filedocumented in this encounter Care Teams Railroad Car Repair Supervisor Relationship Specialty Start Date End Date Kirsten Bateman MD [address] [place] [address] PCP - General 01/13/10 documented as of this encounter
--- OUTSIDE RECORDS SUMMARY | 2024-03-09 10:35 | XMS_ITS | Encounter Summary ---
Author Organization [facility] Address [address] [place] [address] Care Team Providers Care Commissary Worker Name Role Phone Unavailable Primary Care Provider Unavailabl e Encounter Details Date Type Department Care Team (Late st Contact Info) Description 01/10/2008 Before PRISM Converted Visit (Maple) [facility] - Maple conversion [address] [place] [address] Ray Farooq MD [address] [place] [address] Social History Tobacco Use Types Packs/Day Years Used Date Smoking Tobacco: Never Assessed Sex and Gender Information Value Date Recorded Sex Assigned at Not on file Gender Identity Not on file Sexual Orientation Not on file documented as of this encounter Consult Notes * Ray Farooq MD - 03/21/2009 8221 EDT [facility] - 01/10/2008 Kirsten Bateman MD [facility] [address] [place] [address] Bateman: Chief complaint: Hearing loss. History of present illness: Lwjys[age]xcmoj-ofyu-old female with along history of bilateral hearing [...] aspirin, vitamin E, C, B12, B125 complex, Torey-Blanchard, EPA fatty acid, coral calcium complex, potassium chloride, Diovan, and hormone essentials. She has drug allergies to cortisone, Percocet, and hydrocodone. Family history is significant for cancer. Social history: The patient is a nonsmoker, nondrinker. She lives in [place]. Review of systems is significant for allergies, [...] Tosin Farooq MD - [facility] Job ID: [id number] Doc ID: [id number] cc: Kirsten Bateman MD cc: Kirsten Bateman MD documented in this encounter Plan of Treatment Not on file documented as of this encounter Visit Diagnoses Not on filedocumented in this encounter
--- OUTSIDE RECORDS SUMMARY | 2024-03-09 10:35 | XMS_ITS | Encounter Summary ---
Author Organization [facility] Address [facility] [place] [address] Care Team Providers Care Cracker Sprayer Name Role Phone Rosie Mathews MD Primary Care Provider [phone] Reason for Visit * Consultation (Routine) - Closed Specialty Diagnoses / Procedures Referred By Contbruce hunt Referred To Contact Audiology Diagnoses Hearing assessment and treatment options Karson John MD [address] [place] [address] [facility] Audiology [address] [place] [phone] Referral ID Status Reason Start Date Expiration Date V isits Requested Visits Authorized [id number] Closed Consult, Test & Treat Connection Center 11/22/2017 11/22/2018 1 1 Encounter Details Date Type Department Care Team (Latest Contact Info) Description 11/30/2017 3:15 PM EDT Office Visit Audiology at [address] [address] Georgette Onofre [facility] [place] [address] Sensorineural hearing loss, bilateral; Bilateral [...] Department in-the-ear hearingaids nine years ago in [place], [place]. She stated she continues to experience [...] tone audiogram. SNR loss is the increased psxcor-ba-qsdlp ratio required by an individual to understand [...] not hesitate to contact this Section at [phone] if there are questions regarding this report or its recommendations. Romeo Becker [place] [id number] Attachment: audiogram CC: MD Karson Loo MD Laurmarco a Catherine Edvinjonatanjosue [facility] [address] [place] [phone] documented in this encounter Plan of Treatment Upcoming Encounters Date Type Department Care Team (Late st Contact Info) Description 03/29/2024 11:20 AM EDT Office Visit Cardiology at [address] [place] [address] Izaiah Meyer MD [facility] [place] [address] documented as of this encounter Procedures Procedure [...] tinnitus documented in this encounter Care Teams Cracker Sprayer Relationship Specialty Start Date End Date Rosie Mathews MD [address] [place] [address] PCP - General Family Medicine 11/25/17 11/23/23 documented as of this encounter
--- OUTSIDE RECORDS SUMMARY | 2024-03-12 10:12 | XMS_ITS | Encounter Summary ---
Author Organization [facility] Address [facility] [place] [address] Care Team Providers Care Gerentological Physiotherapist Name Role Phone Masood Pierson MD Primary Care Provider [phone] Encounter Details Date Type Department Care Team [...] AM EDT Office Visit Cardiology at [address] [address] Izaiah Meyer MD [facility] [place] [place] [address] documented as of this encounter Visit Diagnoses Not on filedocumented in this encounter Care Teams Gerentological Physiotherapist Relationship Specialty Start Date End Date Masood Pierson MD [address] [place] [address] PCP - General Family Medicine 11/24/23 documented as of this encounter
--- OUTSIDE RECORDS SUMMARY | 2024-03-12 10:12 | XMS_ITS | Encounter Summary ---
Author Organization [facility] Address [facility] [place] [address] Care Team Providers Care Shirt Operator Name Role Phone Masood Pierson MD Primary Care Provider [phone] Encounter Details Date Type Department Care Team (Late st Contact Info) Description 12/16/2023 Telephone Cardiology at [address] [place] [address] Izaiah Meyer MD [facility] [place] [address] Social History Tobacco Use Types Packs/Day Years Used Date Smoking Tobacco: Former Smokeless Tobacco: Never Alcohol Use Standard Drinks/Week Comments Not Currently 0 (1 standard drink = 0.6 oz pur e alcohol) [facility] Utilities Answer Date Recorded In the past 12 months has [employer], gas, oil, or water [employer] threatened to shut off services in [...] RN - 12/16/2023 11:25 AM EDT Denise, [facility] Cardiac handle rounder operator, called to report that at today's session [...] AM EDT Office Visit Cardiology at [address] [place] [address] Izaiah Meyer MD [facility] [place] [address] documented as of this encounter Visit Diagnoses Not on filedocumented in this encounter Care Teams Shirt Operator Relationship Specialty Start Date End Date Masood Pierson MD [address] [place] [address] PCP - General Family Medicine 11/24/23 documented as of this encounter
--- OUTSIDE RECORDS SUMMARY | 2024-03-12 10:12 | XMS_ITS | Encounter Summary ---
Author Organization [facility] Address [facility] [place] [address] Care Team Providers Care Motor Scooter Repairer Name Role Phone Rosie Mathews MD Primary Care Provider [phone] Reason for Visit * Reason Onset Date Comments Referral 11/03/2023 Coronary Artery Disease 11/03/2023 Encounter Details Date Type Department Care Team (Late st Contact Info) Description 11/03/2023 Telephone Cardiology at [address] [phone] Andressa Machado, manager combination; Coronary Artery Disease Social History Tobacco Use Types Packs/Day Years Used Date Smoking Tobacco: Former Smokeless Tobacco: Never Alcohol Use Standard Drinks/Week Comments Not Currently 0 (1 standard drink = 0.6 oz pur e alcohol) [facility] Utilities Answer Date Recorded In the past 12 months has e [employer], gas, oil, or water [employer] threatened to shut off services in your [...] not included. Heart and Vascular Clinics [facility] Cardiology Clinic [address] [place] [id number] Lyla was referred to this Cardiology clinic in [place] for post cardiac cath 10/31 for STEMI follow up as part of her discharge plan from [facility].. documented in this encounter Plan of Treatment Upcoming Encounters Date Type Department Care Team (Late st Contact Info) Description 03/29/2024 11:20 AM EDT Office Visit Cardiology at [address] [place] [address] Izaiah Meyer MD [facility] [place] [address] documented as of this encounter Visit Diagnoses Not on filedocumented in this encounter Care Teams Motor Scooter Repairer Relationship Specialty Start Date End Date Rosie Mathews MD [address] [place] [address] PCP - General Family Medicine 11/25/17 11/23/23 documented as of this encounter
--- OUTSIDE RECORDS SUMMARY | 2024-03-12 10:12 | XMS_ITS | Encounter Summary ---
Author Organization [facility] Address [facility] [place] [address] Care Team Providers Care Gravel Screener Name Role Phone Rosie Mathews MD Primary Care Provider [phone] Encounter Details Date Type Department Care Team (Late st Contact Info) Description 11/18/2023 Telephone Cardiology at [address] [address] Cheryl Guzman MD [facility] [place] [address] Social History Tobacco Use Types Packs/Day Years Used Date Smoking Tobacco: Former Smokeless Tobacco: Never Alcohol Use Standard Drinks/Week Comments Not Currently 0 (1 standard drink = 0.6 oz pur e alcohol) [facility] Utilities Answer Date Recorded In the past 12 months has e electric, gas, oil, or water [employer] threatened to shut off services in your [...] [place] Past Medical History: HT[place] H[place] [place], status-post revasc) Presenting Symptoms per OSH: Lyla Goodrich is a 83 y.o. woman who presents to [facility] [place] with an episode of chest pain. Recent admission [place] [facility] with NSTEMI status-post PCI to the prox-RCA [...] today's values. RCA was described as a STRATEGIC COMMUNICATIONS MANAGER. Recommend admission for observation to assess for [...] 11:20 AM EDT Office Visit Cardiology at [address] [phone] Izaiah Meyer MD [facility] [place] [address] documented as of this encounter Visit Diagnoses Not on filedocumented in this encounter Care Teams Gravel Screener Relationship Specialty Start Date End Date Rosie Mathews MD [address] [place] [address] PCP - General Family Medicine 11/25/17 11/23/23 documented as of this encounter
--- OUTSIDE RECORDS SUMMARY | 2024-03-12 10:12 | XMS_ITS | Encounter Summary ---
Author Organization [facility] Address [facility] [place] [address] Care Team Providers Care Rating Officer Name Role Phone Masood Pierson MD Primary Care Provider [phone] Reason for Visit * Reason Comments Establish Care Coronary Artery Disease Encounter Details Date Type Department Care Team (Latest Contact Info) Description 11/24/2023 10:40 AM EDT Office Visit Cardiology at [address] [place] [address] Izaiah Meyer MD [facility] [place] [address] ASCVD (arteriosclerotic cardiovascular disease); Cardiomyopathy, ischemic; Ascending [...] y.o. female. HPI: 83 f presents to [facility] cardiovascular care. She has a [...] rehab. [facility] SBP very well controlled at home [...] AM EDT Office Visit Cardiology at [address] [place] [phone] Izaiah Meyer MD [facility] [place] [address] documented as of this encounter Visit Diagnoses Diagnosis ASCVD (arteriosclerotic cardiovascular disease) Unspecified cardiovascular disease Cardiomyopathy, ischemic Other specified forms of chronic ischemic heart disease Ascending aorta dilatation Thoracic aortic ectasia Hyperpiesia Unspecified essential hypertension documented in this encounter Care Teams Rating Officer Relationship Specialty Start Date End Date Masood Pierson MD [address] [place] [address] PCP - General Family Medicine 11/24/23 documented as of this encounter
--- OUTSIDE RECORDS SUMMARY | 2024-03-12 10:12 | XMS_ITS | Encounter Summary ---
Author Organization [facility] Address [facility] [place] [address] Care Team Providers Care Linking Machine Operator Name Role Phone Masood Pierson MD Primary Care Provider [phone] Encounter Details Date Type Department Care Team (Late st Contact Info) Description 02/27/2024 Telephone Cardiology at [address] [place] [address] Izaiah Meyer MD [facility] [place] [address] Social History Tobacco Use Types Packs/Day Years Used Date Smoking Tobacco: Former Smokeless Tobacco: Never Alcohol Use Standard Drinks/Week Comments Not Currently 0 (1 standard drink = 0.6 oz pur e alcohol) [facility] Utilities Answer Date Recorded In the past 12 months has [employer], gas, oil, or water [employer] threatened to shut off services in your [...] 3:30 PM EDT Lyla was seen at [facility] this past Tuesday for chest pain and returned to the ED Tuesday for back pain.Per patient both times it was determined she was having no cardiac issues but she was told to let her title abstractor know. At present she is not having [...] AM EDT Office Visit Cardiology at [address] [phone] Izaiah Meyer MD [facility] [place] [address] documented as of this encounter Visit Diagnoses Not on filedocumented in this encounter Care Teams Linking Machine Operator Relationship Specialty Start Date End Date Masood Pierson MD [address] [place] [address] PCP - General Family Medicine 11/24/23 documented as of this encounter
--- OUTSIDE RECORDS SUMMARY | 2024-03-12 10:12 | XMS_ITS | Encounter Summary ---
Author Organization Counts Include [facility] At [facility] Address [facility] [place] [address] Care Team Providers Care Automotive General Sales Manager Name Role Phone Rosie Mathews MD Primary Care Provider Reason for Referral * Consultation (Routine) - Authorized Specialty Diagnoses / Procedures Referred By Contac t Referred To Contact Cardiology Diagnoses 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 Rosa Hugo MD [facility] [place] [address] Cardiac Rehab, [address] [place] [address] Referral ID Status Reason Start Date Expiration Date Visits Requested Visits Authorized [id number] Authorized Consult, Test & Treat Non PCP 11/03/2023 05/01/2024 36 36 * Home Health Care (Routine) - Authorized Specialty Diagnoses / Procedures Referred By Contac t Referred To Contact Diagnoses Unstable angina Rosa Hugo MD [facility] [place] [address] Referral ID Status Reason Start Date Expiration Date Visits Requested Visits Authorized [id number] Authorized Consult, Test & Treat 11/03/2023 05/01/2024 999 999 Reason for Visit * Auth/Cert (Routine) Specialty Diagnoses / Procedures Referred By John hunt Referred To Contact Diagnoses Unstable angina Chest pain NSTEMI Procedures CARDIAC CATHETERIZATION Rosa Dewey MD [facility] [place] [address] [facility] Referral ID Status Reason Start Date Expiration Date Visits Re quested Visits Authorized [id number] 1 1 Encounter Details Date Type Department Care Team (Latest Contact Info) Description 10/30/2023 5:11 PM EDT - 11/03/2023 5:13 PM EDT Hospital Encounter Heart and Vascular Unit Level 4 [place] [address] Rosa Dewey MD [facility] [place] [address] Jean Laboy MD [facility] [place] [address] Rosa Hugo MD [facility] [place] [address] 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; Tachycardia; Unstable angina Discharge Disposition: Home Social History Tobacco Use Types Packs/Day Years Used Date Smoking Tobacco: Former Smokeless Tobacco: Never Alcohol Use Standard Drinks/Week Comments Not Currently 0 (1 standard drink = 0.6 oz pur e alcohol) [facility] Utilities Answer Date Recorded In the past 12 months has e [employer], gas, oil, or water Babble threatened to shut off services in your [...] hypertension and hyperlipidemia who presented to [facility] as a transfer from [facility] as a possible STEMI alert with acute onset chest pain. The patient reports that her symptoms initially began on Tuesday when she was walking to [employer] and experienced bilateral arm heaviness while walking with no other symptoms. Then, this afternoon shereports developing bilateral achy shoulder pain and nonradiating substernal left-sided chest pressure that was 7/10 in severity after coming home from nondenominational. The patient denies any associated fevers, chills, [...] repeat, her TRU resolved. Cardiology at [facility] was consulted for transfer; the patient was loaded with aspirin 324 mg and ticagrelor 180 mg, started on a heparin drip, and given nitroglycerin with improvement in chest pain. Upon arrival to [facility], the patient was taken directly to the Sales And Business Development Manager. Two lesions were discovered: one in the prox RCA (felt to almost be a COATING AND BAKING OPERATOR but they were able to wire, [...] prior to arrival in the clinical laboratory scientist. Recommended anti-platelet/anti-thrombotic regimen: Continue aspirin 81 mg [...] and low lung volumes. Findings similar to supervisor cereal radiograph from CT 10/30/2023. Pending Studies and [...] 10:40 AM Izaiah Meyer MD Cardiology at [place] Arrive at: [facility] [address] [phone] Future Orders Complete By Expires Referral to Cardiac Rehab [[id number] Custom] As directed Process Instructions: If no progress note charted, please enter Clinical details in comments. Scheduling Instructions: Questions: My question or request is: STEMI. Cardiac rehab at [facility]. Referral to Home Health [[id number] Custom] As directed Process Instructions: If no progress note charted, please enter Clinical details in comments. Scheduling Instructions: Comments: Please evaluate Adin Santos for admission to Home Health. [address] [facility] [address] (home) Date of : 1940 Inpatient DOCUMENTATION FOR VNA SERVICES (INCLUDING THOSE PATIENTS WITH MEDICARE COVERAGE REQUIRING HOME VNA SERVICES AND/OR HOSPICE SERVICES) PATIENT'S LOCATION: Adin Santos [address] [facility] [phone] (home) Cell: Telephone Information: Production Line Worker's Name: self In discussion with the attending physician, it is certified that this patient is under their care and that they, or a Nurse Practitioner, Clinical Nurse specialist or Physician Suction Operator who is working directly with them, [...] regarding health issues HOME HEALTH CARE AGENCY: [facility] [address] [place] [address] START OF CARE: within 24-48 hours of [...] MD / Dr. Masood Pierson [address] [place] [id number] 11/09/23 1:55 PM arrival for 2:10 PM appointment Returns Supervisor: Izaiah Meyer MD [address] [place] [id number] , 11/24/2023 10:40 AM Your Inpatient Medical Team at [facility] Name(s) of your inpatient provider(s): Attending physician: Rosa Hugo MD Resident physicians: Emile Robles MD; Elmer Tamez MD If you have non-emergent questions, prior to your follow-up visit call: Tuesday-Tuesday between the hours of 8AM-5PM please call the Cardiology Clinic [phone] to speak with a nurse. All other hours please call the Hospital P[employer]rer [employer] [phone] and ask to speak to the research chemical engineer on-call. Your Primary Care Provider Rosie Mathews MD [phone] For questions regarding this document or issues relating to this hospitalization on the Medical Service, please contact your inpatient physician through the [facility] [employer] . Issues afterhours and on weekends will be handled by the Returns Supervisor staff on-call. Associated attestation - Rosa Hugo [...] / Dr. Masood Pierson [address] [place] [address] 11/09/23 1:55 PM arrival for 2:10 PM appointment Returns Supervisor: Izaiah Meyer MD [address] [place] [address] , 11/24/2023 10:40 AM Your Inpatient Medical Team at [facility] Name(s) of your inpatient provider(s): Attending physician: Rosa Hugo MD Resident physicians: Emile Robles MD; Elmer Tamez MD If you have non-emergent questions, prior to your follow-up visit call: Tuesday-Tuesday between the hours of 8AM-5PM please call the Cardiology Clinic [phone] to speak with a nurse. All other hours please call the Hospital [facility] [employer] [phone] and ask to speak to the research chemical engineer on-call. Your Primary Care Provider Rosie Mathews MD [phone] documented in this encounter Medications at Time [...] hypertension and hyperlipidemia who presented to [facility] as a transfer from [facility] [...] hypertension and hyperlipidemia who presented to [facility] as a transfer from [facility] [...] Resident on Cardiology Service Cardiology S1 (Pager [phone]) Note written in conjunction with Claudio Perla [facility] Medical Student, MS3 Associated attestation [...] Nirmala Webb - 11/01/2023 11:25 AM EDT Skin Toggler Encounter Note Patient Name: Adin Santos : [id number] MR#: [id number] Admit Date: 10/30/2023 5:11 PM Hospital Day 2 days Narrative: Self initiated visit to patient for Spiritual support in a regular unit rounds. Assessment: Patient is in the bathroom at the time of this visit. Not a good time for Visual C Developer visit. Intervention and Outcome: An attempted visit [...] hypertension and hyperlipidemia who presented to [facility] as a transfer from [facility] [...] and low lung volumes. Findings similar to supervisor cereal radiograph from CT 10/30/2023. Scheduled Medications: [AUG [...] hypertension and hyperlipidemia who presented to [facility] as a transfer from [facility] [...] Resident on Cardiology Service Cardiology S1 (Pager [phone]) Note written in conjunction with Claudio Perla [facility] Medical Student, MS3 Associated attestation - oRsa [...] hypertension and hyperlipidemia who presented to [facility] as a transfer from [facility] as a possible STEMI alert with acute onset chest pain. Active Problems: Active Hospital Problems Diagnosis Unstable angina Resolved Hospital Problems No resolved problems to display. 24 hr events: - Cath'd yesterday with lesion in the proximal RCA (initially thought it was COATING AND BAKING OPERATOR but they were ableto wire, balloon [...] and low lung volumes. Findings similar to supervisor cereal radiograph from CT 10/30/2023. TTE (05/13): Interpretation [...] hypertension and hyperlipidemia who presented to [facility] as a transfer from [facility] [...] Resident on Cardiology Service Cardiology S1 (Pager [phone]) Note written in conjunction with Claudio Perla [facility] Medical Student, MS3 Associated attestation [...] PCP: Rosie Mathews MD PCP phone number: [phone] Date of Admission: 10/30/2023 ( Hospital Day 0 days ) Attending:Rosa Cornejo MD ID: Adin Santos is a 83 y.o. female PMH significant for hypertension and hyperlipidemia who presented to [facility] as a transfer from [facility] as a possible STEMI alert with acute onset chest pain. The patient reports that her symptoms initially began on Tuesday when she was walking to [employer] and experienced bilateral arm heaviness while walking with no other symptoms. Then, this afternoon shereports developing bilateral achy shoulder pain and nonradiating substernal left-sided chest pressure that was 7/10 in severity after coming home from nondenominational. The patient denies any associated fevers, chills, [...] repeat, her TRU resolved. Cardiology at [facility] was consulted for transfer; the patient was loaded with aspirin 324 mg and ticagrelor 180 mg, started on a heparin drip, and given nitroglycerin with improvement in chest pain. Upon arrival to [facility], the patient was taken directly to the Sales And Business Development Manager. 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 Findings similar to supervisor cereal radiograph from CT 10/30/2023. Assessment & Plan: Adin Santos is a 83 y.o. female PMH significant for hypertension and hyperlipidemia who presented to [facility] as a transfer from [facility] [...] with HTN HLD transferred with chest from [facility]. BP 217/68, HR [address] [...] information for follow-up Home Health & Hospice, [place] [address] [place] [address] TANESHA BOYCE confirmed with [facility] that they will see the patient [...] N/A Patient is insured through: Primary Insurance: [employer] MANAGED MEDICARE Payor: [employer] MEDICARE / Plan: [employer] MANAGED MEDICARE PPO / Product Type: *No [...] in the room. Electrolytes replaced, see MAR. 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 Pt complained of back pain, lidocaine patch given. Right IV infiltrated during infusion, patient is marked with sharpie, IV removed. See flowsheet for I+O's and safety rounding. Patient is able to make needs known and call capps within reach. PLAN MOVING FORWARD: Monitor Tele, control BP, monitor clinical laboratory scientist sites, D/C Planning INDIVIDUALIZED FALL PREVENTION INTERVENTIONS: [...] in an outpatient cardiac rehabilitation program at [facility] was discussed. Patient agrees to a referral [...] on RA. PT went to clinical laboratory scientist today. Left fem site oozed throughout shift, [...] Monitor Tele, control BP, monitor clinical laboratory scientist sites, D/C Planning INDIVIDUALIZED FALL PREVENTION INTERVENTIONS: [...] Admitted From: Transfer from another hospital Location: [facility] Reason for Hospitalization: chest pain Covid Vaccination [...] 180 days) Any patient receiving care in [place] must abide by [place] law. The hierarchy [...] steady place to sleep or slept in [facility] (including now)?: No In the past [...] toilet seat Home Address confirmed as: [address] [place] [phone] Social & Family Supports: All names listed below confirmed with patient as current and correct Extended Emergency Contact Information Primary Emergency Contact: Iris Downing Address: [address] [place], [place] [address] [place] [address] Mobile Relation: Child Secondary Emergency Contact: Karen More Address: [address] [facility] Mobile Relation: Child Current Care Provided by: self Provides Primary Care For: no one Caregiver if needed: child(emmanuel), adult Quality of Family relationships: involved, supportive Community Resources being provided currently: other (see comments) (receives [facility] services at home (1xweekly)) Behavioral [...] Insurance: N/A Prescription Coverage: Yes Preferred Pharmacy: [id number] - [place], [place] - [address] [facility] [address] [facility] [address] Status: Patient is a : No Primary Care Provider listed: Masood Pierson MD [phone] Patient/Caregiver Goals of Treatment: home when MR Potential Needs for Transition of Care: home health care Agency Referrals: Not Applicable I have met with the patient to: discuss discharge planning needs. provide the [facility], Office of Care Management letter from the Voting Machine Mechanic pertaining to rehab referrals. provide a letter describing our affiliations within the [facility] and educate about their right to choose where referrals are sent. provide a list of Home Health Agencies / Durable Medical Equipment vendors which serve their preferred geographic area. provided patient with [facility] Star Quality Rating handout. They have requested referrals to: [facility] [address] [place] [address] Note routed to a Water Plant Pump Operator Supervisor who will communicate referrals to facilities [...] results. PO hydralazine added for BP control. 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 See flowsheet for I+O's and safety rounding. Patient is able to make needs known and call capps within reach. PLAN MOVING FORWARD: Monitor Tele, control CP and BP, NPO at MD for cath, monitor clinical laboratory scientist sites, D/C Planning INDIVIDUALIZED FALL PREVENTION INTERVENTIONS: [...] AM EDT Office Visit Cardiology at [address] [place] [address] Izaiah Meyer MD [facility] [address] Scheduled Referrals Name Type Priority Associated Diagnoses [...] [facility] Monocyte % 16.9 % [facility] Monocyte Abs 1.4(H) 0.3 - 0.9 x10(3)/ L [facility] Eos % 3.7 % [facility] Eosinophils Abs 0.3 0.0 - 0.4 x10(3)/[facility] Basophil % 0.5 % [facility] [...] HEMATOLOGY ORDERABLE S [facility] [place] [address] * (ABNORMAL) Hemogram (11/03/2023 3:46 AM EDT) [...] HOSPITAL LABORATORY Platelet 181 145 - 357 x10(3)/[facility] LAB[facility] RDW Standard Deviation 54.7(H) 37.0 - 46.0 [facility] LABORATORY RDW coefficient of variation 14.6(H) 11.5 - 14.1 % [facility] Mean Platelet Volume 11.2 7.6 - 12.9 [facility] LAB[facility]ATORY NRBC% auto 0.0 % [facility] NRBC Absolute 0.000 0.000 - 0.000 x10(3)/ L [facility] Blood 11/03/2023 3:46 AM EDT 11/03/2023 4:11 AM EDT Narrative Resulting Agency Comment Spec In Lab Qamar Gallardo MD HEMATOLOGY ORDERABLE S [facility] [place] [address] * Phosphorus (11/03/2023 3:46 AM EDT) Phosphorus 3.2 2.5 - 4.5 mg/dL [facility] Comment:result rechecked-KS Blood 11/03/2023 3:46 AM EDT 11/03/2023 4:11 AM EDT Narrative Resulting Agency Comment Spec In Lab Rosa Cornejo MD CHEMISTRY ORDERABLE S [facility] [place] [address] * Magnesium (11/03/2023 3:46 AM EDT) Magnesium 0.90 0.69 - 1.07 mmol/L [facility] Blood 11/03/2023 3:46 AM EDT 11/03/2023 4:11 AM EDT Narrative Resulting Agency Comment Spec In Lab Rosa Cornejo MD CHEMISTRY ORDERABLE S Performing Organization Address City/[facility]/ZIP Co de Phone Number [facility] [place] [address] * (ABNORMAL) Basic Metabolic Panel (non-fasting) (11/03/2023 [...] CHEMISTRY ORDERABLE S [facility] [place] [id number] * EKG 12 Lead (11/02/2023 12:44 PM EDT) Ventricular rate 83 BPM MUSE SYSTEM Atrial Rate 83 BPM MUSE SYSTEM P-R Interval 216 ms MUSE SYSTEM QRS Duration 90 ms MUSE SYSTEM Q-T Interval 384 ms MUSE SYSTEM QTC Calculated (Bezet) 451 ms MUSE SYSTEM Calculated P [place] 92 degrees MUSE SYSTEM Calculated R [place] -51 degrees MUSE SYSTEM Calculated T [place] -33 degrees MUSE SYSTEM INTERPRETATION Sinus rhythm [...] MD URINE ORDERABLES Performing Organization Address City/[facility] Co de Phone Number [facility] [place] [address] * (ABNORMAL) Urinalysis with reflex Culture (11/02/2023 [...] HOSPITAL LABORATORY Leukocytes, Urine Dipstick Small(A) Negative [facility] Appearance, Urine Dipstick Cloudy(A) Clear [facility] Specific [place] Urine Automated >=1.030(A) 1.005 - 1.030 [facility] Color, Urine Dipstick Dark Yellow Yellow [facility] Reflex to Culture Yes [facility] Clean Catch Urine 11/02/2023 11:40 AM EDT 11/02/2023 12:04 PM EDT Narrative Resulting Agency Comment Spec In Lab Rosa Hugo MD URINE ORDERABLES Performing Organization Address City/State/[facility] Co de Phone Number [facility] [place] [address] * Respiratory Panel PCR (11/02/2023 10:15 AM EDT) Respiratory Panel Source TRAVEL REGISTERED NURSE PACU Swab [facility] Respiratory Panel PCR Negative Negative [facility] Comment: Respiratory Panels are performed on the [email or web address], using multiplexed PCR nucleic acid detection. ??Negative [...] performed using the Bio[employer] Respiratory Panel 2.1 ([employer]) as authorized by the FDA issued Emergency Use Authorization (EUA). This panel also tests for multiple other viral and bacterial pathogens. This assay is intended for In-vitro Diagnostic (IVD) use with nasopharyngeal swabs in viral transport media. The assay is performed based on the instructions for use and additional guidance provided by the FDA. Testing is performed in laboratories within the [facility], each of which is certified under [...] fact sheets at the following FDA website: https://www.fda.gov/medical-devices/bylzzhqtsgr-fuapkyr-5360-smnml-27-lphqmplxx- use-a wkroslxkypwal-rcxpxei-pszakzw/xbuev-syegzfweicw-qsby Human Metapneumovirus Not Detected Not Detected [facility] [...] GEN ERAL ORDERABLES [facility] [place] [address] * XR Chest One View (11/02/2023 2:51 AM EDT) WORKSTATION ID [id number] RAD Anatomical Region Laterality Modality Chest N/A [...] who have questions please contact the health youth care worker that requested your imaging first. [...] patients who have questions please contactthe health youth care worker that requested your imaging first. [...] [facility] Monocyte % 12.9 % [facility] Monocyte Abs 1.3(H) 0.3 - 0.9 x10(3)/mc L [facility] Eos % 1.4 % [facility] Eosinophils Abs 0.1 0.0 - 0.4 x10(3)/mc L [facility] Basophil % 0.4 % [facility] [...] ORDERABLE S [facility] [place] [address] * (ABNORMAL) Hemogram (11/02/2023 12:35 AM EDT) [...] [facility] LABORATORY NRBC% auto 0.0 % [facility] NRBC Absolute 0.000 0.000 - 0.000 x10(3)/ L [facility] Blood 11/02/2023 12:3 5 AM EDT 11/02/2023 12:43 AM EDT Narrative Resulting Agency Comment Spec In Lab Qamar Gallardo MD HEMATOLOGY ORDERABLE S [facility] [place] [address] * (ABNORMAL) Phosphorus (11/02/2023 12:35 AM EDT) Phosphorus 1.6(L) 2.5 - 4.5 mg/dL [facility] Blood 11/02/2023 12:3 5 AM EDT 11/02/2023 12:43 AM EDT Narrative Resulting Agency Comment Spec In Lab Rosa Cornejo MD CHEMISTRY ORDERABLE S [facility] [place] [address] * Magnesium (11/02/2023 12:35 AM EDT) Pathologist [facility] Magnesium 0.87 0.69 - 1.07 mmol/L [facility] Blood 11/02/2023 12:3 5 AM EDT 11/02/2023 12:43 AM EDT Narrative Resulting Agency Comment Spec In Lab Rosa Cornejo MD CHEMISTRY ORDERABLE S Performing Organization Address City/[facility]/ZIP Co de Phone Number [facility] [place] [address] * Basic Metabolic Panel (non-fasting) (11/02/2023 12:35 [...] CHEMISTRY ORDERABLE S [facility] [place] [address] * Blood culture (11/02/2023 12:35 AM EDT) Blood Culture No growth at 5 days. [facility] Blood 11/02/2023 12:3 5 AM EDT 11/02/2023 1:55 AM EDT Comment:#2 site ukn Narrative Resulting Agency Comment Spec In Lab Rosa Hugo MD MICROBIOLOGY - BLO OD ORDERABLES [facility] [place] [address] * Blood culture (11/02/2023 12:15 AM EDT) Blood Culture No growth at 5 days. [facility] Blood 11/02/2023 12:1 5 AM EDT 11/02/2023 1:54 AM EDT Comment:#1site unk Narrative Resulting Agency Comment Spec In Lab Rosa Hugo MD MICROBIOLOGY - BLO OD ORDERABLES Performing Organization Address City/[facility]/ZIP Co de Phone Number [facility] [place] [address] * EKG 12 Lead (11/01/2023 10:10 PM EDT) Ventricular rate 139 BPM MUSE SYSTEM Atrial Rate 139 BPM MUSE SYSTEM P-R Interval 168 ms MUSE SYSTEM QRS Duration 84 ms MUSE SYSTEM Q-T Interval 286 ms MUSE SYSTEM QTC Calculated (Bezet) 435 ms MUSE SYSTEM Calculated R [place] -59 degrees MUSE SYSTEM Calculated T [place] -27 degrees MUSE SYSTEM INTERPRETATION Mid-RP tachycardia, [...] interpretation Confirmed by fellow MD Andrés, Enriqueta ([id number]) on 11/04/2023 7:57:50 AM Confirmed by MD Gerardo, Shameka ([id number]) on 11/04/2023 4:32:03 PM MUSE SYSTEM 11/01/2023 10:1 0 PM EDT 11/04/2023 4:32 PM EDT Rosa Cornejo MD ECG ORDERABLES Performing Organization Address City/[facility]/ZIP Co de Phone Number MUSE SYSTEM * [...] HOSPITAL LABORATORY Platelet 197 145 - 357 x10(3)/[facility] LABORATORY RDW Standard Deviation 54.0(H) 37.0 - 46.0 fL [facility] RDW coefficient of variation 14.6(H) 11.5 - 14.1 % [facility] [facility] Mean Platelet Volume 11.2 7.6 - 12.9 fL [facility] NRBC% auto 0.0 % [facility] NRBC Absolute 0.000 0.000 - 0.000 x10(3)/[facility] LABORATORY Blood 11/01/2023 10:0 6 PM EDT 11/01/2023 10:22 PM EDT Narrative Resulting Agency Comment Spec In Lab Rosa Hugo MD HEMATOLOGY ORDERAB LES [facility] [place] [address] * POCT Glucose (11/01/2023 5:59 PM EDT) Glucose, POC 104 65 - 199 mg/dL [facility] Comment: Supplemental ranges: <140 mg/dL before meals <180 mg/dL all other times of the day Blood 11/01/2023 5:59 PM EDT 11/01/2023 5:59 PM EDT Rosa Hugo MD POINT OF CARE TEST ORDERABLES [facility] [place] [address] * POCT Glucose (11/01/2023 5:35 PM EDT) Glucose, POC 85 65 - 199 mg/dL [facility] Comment: Supplemental ranges: <140 mg/dL before meals <180 mg/dL all other times of the day Blood 11/01/2023 5:35 PM EDT 11/01/2023 5:35 PM EDT Rosa uHgo MD POINT OF CARE TEST ORDERABLES Performing Organization Address City/[facility] Co de Phone Number [facility] [place] [address] * EKG 12 Lead (11/01/2023 3:22 PM EDT) Ventricular rate 59 BPM MUSE SYSTEM Atrial Rate 59 BPM MUSE SYSTEM P-R Interval 220 ms MUSE SYSTEM QRS Duration 94 ms MUSE SYSTEM Q-T Interval 428 ms MUSE SYSTEM QTC Calculated (Bezet) 423 ms MUSE SYSTEM Calculated P [place] 76 degrees MUSE SYSTEM Calculated R [place] -50 degrees MUSE SYSTEM Calculated T [place] -59 degrees MUSE SYSTEM INTERPRETATION Sinus bradycardia [...] ? Procedure Date: 11/01/2023 ? A #: [id number] ? Primary Physician: Rosa Dewey I ? Case #: [id number] ? File Name: [id number] ? Catheterization Order Number: [id number] ? [facility] ? Final Report [place], [place] ? Patient Name: ? Adin Townsendjosue ?ID#: ?[id number] ? : ?1940 ? Procedure Date: ? [...] Urgent. The indication for ?the clinical laboratory scientist visit is ACS greater than 24 hrs. [...] ??A premounted ? 3.50 x 15 mm [place] (RADHA) was deployed with a maximum ? [...] ? A premounted 3.50 x 15 mm [place] (RADHA) was deployed ? with a maximum [...] prior to arrival in the clinical laboratory scientist. ?Recommended anti-platelet/anti-thrombotic regimen: ?Continue aspirin 81 mg daily for indefinitely. ?Continue clopidogrel 75 mg daily for 12 months then stop. ?These recommendations are made at the time of the intervention. Patient ?and provider preferences or a changing clinical situation may require ?modification of this regimen. Consult [facility] Interventional Cardiology for [...] Note Otto, Rosa I, MD - 12/12/2023 [facility] Cardiac Catheterization/Intervention Report Patient Name: Adin Santos Procedure Date: 11/01/2023 A #: [id number] Primary Physician: Rosa Dewey I Case #: [id number] File Name: [id number] Catheterization Order Number: [id number] [facility] FinalReport [place], [place] Patient Name: Adin Santos ID#:[id number] :1940 Procedure Date: November 01, 2023 Case [...] was Urgent. The indicationfor the clinical laboratory scientist visit is ACS greater than 24 hrs. [...] 14 atmospheres. Apremounted 3.50 x 15 mm [place] (RADHA) was deployed with amaximum inflation pressure [...] The lesion was predilated with a 3.00mm [id number] MM balloon with a maximum inflation pressure of 14atmospheres. A premounted 3.50 x 15 mm [place] (RADHA) wasdeployed with a maximum inflation pressure [...] prior to arrival in the clinical laboratory scientist. Recommended anti-platelet/anti-thrombotic regimen: Continue aspirin 81 mg daily for indefinitely. Continue clopidogrel 75 mg daily for 12 months then stop. These recommendations are made at the time of the intervention.Patient and provider preferences or a changing clinical situation mayrequire modification of this regimen. Consult [facility] Interventional Cardiologyfor questions. [...] * POCT Glucose (11/01/2023 7:06 AM EDT) [facility] Glucose, POC 93 65 - 199 mg/dL [facility] Comment: Supplemental ranges: <140 mg/dL before meals <180 mg/dL all other times of the day Blood 11/01/2023 7:06 AM EDT 11/01/2023 7:06 AM EDT Jean Laboy MD POINT OF CARE TEST O RDERABLES [facility] [place] [address] * (ABNORMAL) Differential, Automated (11/01/2023 3:09 AM EDT) [facility] Neutrophil % 63.9 % [facility] Neutrophil Absolute 5.54 1.70 - 6.10 x10(3)/mc L [facility] Lymph % 20.0 % [facility] Lymphocytes Abs 1.7 0.9 - 3.2 x10(3)/mc L [facility] Monocyte % 11.9 % [facility] Monocyte Abs 1.0(H) 0.3 - 0.9 x10(3)/mc L [facility] Eos % 3.2 % [facility] Eosinophils Abs 0.3 0.0 - 0.4 x10(3)/mc L [facility] Basophil % 0.5 % [facility] [...] City/State/[facility] Co de Phone Number [facility] [place] [address] * (ABNORMAL) Hemogram (11/01/2023 3:09 AM EDT) [...] [facility] NRBC% auto 0.0 % [facility] NRBC Absolute 0.000 0.000 - 0.000 x10(3)/mc L [facility] Blood 11/01/2023 3:09 AM EDT 11/01/2023 3:29 AM EDT Narrative Resulting Agency Comment Spec In Lab Qamar Gallardo MD HEMATOLOGY ORDERABLE S Performing Organization Address City/[facility]/ZIP Co de Phone Number [facility] [place] [address] * Phosphorus (11/01/2023 3:09 AM EDT) Phosphorus 2.5 2.5 - 4.5 mg/dL [facility] Blood 11/01/2023 3:09 AM EDT 11/01/2023 3:29 AM EDT Narrative Resulting Agency Comment Spec In Lab Roas Cornejo MD CHEMISTRY ORDERABLE S Performing Organization Address City/[facility]/ZIP Co de Phone Number [facility] [place] [address] * Magnesium (11/01/2023 3:09 AM EDT) Magnesium 0.82 0.69 - 1.07 mmol/L [facility] Blood 11/01/2023 3:09 AM EDT 11/01/2023 3:29 AM EDT Narrative Resulting Agency Comment Spec In Lab Rosa Cornejo MD CHEMISTRY ORDERABLE S Performing Organization Address City/[facility]/ZIP Co de Phone Number [facility] [place] [address] * (ABNORMAL) Basic Metabolic Panel (non-fasting) (11/01/2023 [...] CHEMISTRY ORDERABLE S [facility] [place] [address] * (ABNORMAL) Troponin (10/31/2023 2:46 PM EDT) [...] troponin value can be found in the Counts Include [facility] Laboratory Test Catalog Troponin - Counts Include [facility] Laboratory Test Catalog Reference: [place] Definition of Myocardial Infarction. Journal of the [place] College [employer] 2018;72:4951-4933 Blood 10/31/2023 2:46 PM EDT 10/31/2023 2:55 PM EDT Narrative Resulting Agency Comment Spec In Lab Jean Laboy MD CHEMISTRY ORDERABLES [facility] [place] [address] * EKG 12 Lead (10/31/2023 1:07 PM EDT) Ventricular rate 54 BPM MUSE SYSTEM Atrial Rate 54 BPM MUSE SYSTEM P-R Interval 218 ms MUSE SYSTEM QRS Duration 92 ms MUSE SYSTEM Q-T Interval 540 ms MUSE SYSTEM QTC Calculated (Bezet) 512 ms MUSE SYSTEM Calculated P [place] 85 degrees MUSE SYSTEM Calculated R [place] -44 degrees MUSE SYSTEM Calculated T [place] -69 degrees MUSE SYSTEM INTERPRETATION Sinus bradycardia [...] troponin value can be found in the Counts Include [facility] Laboratory Test Catalog Troponin - Counts Include [facility] Laboratory Test Catalog Reference: Fourth [place] Definition of Myocardial Infarction. Journal of the [place] [employer]iology 2018;72:2664-1633 Blood 10/31/2023 11:3 7 AM EDT 10/31/2023 11:50 AM EDT Narrative Resulting Agency Comment Spec In Lab Rosa Cornejo MD CHEMISTRY ORDERABLE S Performing Organization Address [facility]/State/ZIP Co de Phone Number [facility] [place] [address] * ECHO COMPLETE (10/31/2023 8:52 AM EDT) Anatomical Region Laterality Modality Cardiac Other 10/31/2023 7:57 AM EDT Narrative 10/31/2023 9:45 AM EDT [address] [place] [address] ? Echocardiogram Report Name: ADIN SANTOS ? Study Date: 10/31/2023 07:57 AMBP: 106/76 mmHg ? Patient Location: [id number] A : 1940 ? Height: 163 cm ? Account: [id number] Age: 83 yrs ? Weight: 76 kg Gender: Female ?BSA: 1.8 m2 Ordering Physician: ROSA DEWEY Referring Physician: OMAIRA GIRON Performed By: HAFSA Carmichael Reason For Study: STEMI Interpreting Fellow: Raymond Warren. Exam Location: [facility]. Interpretation Summary -The left ventricle is [...] is no prior echocardiogram for comparison. Procedure Complete-67263. Satisfactory quality. There is sinus bradycardia. Left [...] Note Edgard Wang MD - 10/31/2023 [address] [place] [address] Echocardiogram Report Name: ADIN SANTOS Study Date: 407:57 AMBP: 106/76 mmHg Patient Location: [id number] A : 1940 Height: 163 cm Account: [id number] Age: 83 yrs Weight: 76 kg Gender: Female BSA: 1.8 m2 Ordering Physician: ROSA DEWEY Referring Physician: OMAIRA GIRON Performed By: HAFSA Carmichael Reason For Study: STEMI Interpreting Fellow: Raymond Warren. Exam Location: [facility]. Interpretation Summary -The left ventricle is [...] is no prior echocardiogram for comparison. Procedure Complete-56047. Satisfactory quality. There is sinus bradycardia. Left [...] troponin value can be found in the Counts Include [facility] Laboratory Test Catalog Troponin - Counts Include [facility] Laboratory Test Catalog Reference: Fourth [place] Definition of Myocardial Infarction. Journal of the [place] College [employer] Cardiology 2018;72:0484-5452 Blood 10/31/2023 8:51 AM EDT 10/31/2023 9:12 AM EDT Narrative Resulting Agency Comment Spec In Lab Rosa Cornejo MD CHEMISTRY ORDERABLE S [facility] [place] [address] * CARDIAC CATHETERIZATION (10/31/2023 8:10 AM EDT) Anatomical Region Laterality Modality Other Narrative 11/07/2023 9:42 AM EDT ?[facility] ? Cardiac Catheterization/Intervention Report ? Patient Name: Adin Santos. ? Procedure Date: 10/30/2023 ? A #: [id number] ? Primary Physician: Rosa Dewey I ? Case #: [id number] ? File Name: [id number] ? Catheterization Order Number: [id number] ? [facility] ?Sales And Business Development Manager [facility] ? Final Report [place], [place] ? Patient Name: ? Adin M. Goguen ?ID#: ?[id number] ? : ?1940 ? Procedure Date: ? [...] Emergent. The indication for ?the clinical laboratory scientist visit is ACS less than or equal [...] ? A premounted 4.00 x 38 mm [place] (RADHA) was deployed ? with a maximum [...] prior to arrival in the clinical laboratory scientist. ?Recommended anti-platelet/anti-thrombotic regimen: ?Continue aspirin 81 mg daily for 12 months then stop. ?Continue clopidogrel 75 mg daily for indefinitely. ?These recommendations are made at the time of the intervention. Patient ?and provider preferences or a changing clinical situation may require ?modification of this regimen. Consult [facility] Interventional Cardiology for [...] Adin Santos Procedure Date: 10/30/2023 A #: [id number] Primary Physician: Rosa Dewey I Case #: [id number] File Name: [id number] Catheterization Order Number: [id number] [facility] FinalReport [place], [place] Patient Name: Adin CatherineYasir Edvinree ID#:[id number] :1940 Procedure Date: October 30, 2023 Case #: [id number] Room: 5 Case Physician: Rosa Dewey M.D. [...] was Emergent. Theindication for the clinical laboratory scientist visit is ACS less than or equal [...] The priority for the procedure was Emergent.The [facility] indication for the procedure was STEMI-Immediate [...] 16atmospheres. A premounted 4.00 x 38 mm [place] (RADHA) wasdeployed with a maximum inflation pressure [...] prior to arrival in the clinical laboratory scientist. Recommended anti-platelet/anti-thrombotic regimen: Continue aspirin 81 mg daily for 12 months then stop. Continue clopidogrel 75 mg daily for indefinitely. These recommendations are made at the time of the intervention.Patient and provider preferences or a changing clinical situation mayrequire modification of this regimen. Consult [facility] Interventional Cardiologyfor questions. [...] * (ABNORMAL) Troponin (10/31/2023 4:21 AM EDT) [facility] Troponin-T, High Sensitivity 457(H) <=14 ng/L [...] troponin value can be found in the Counts Include [facility] Laboratory Test Catalog Troponin - Counts Include [facility] Laboratory Test Catalog Reference: Fourth [place] Definition of Myocardial Infarction. Journal of the [place] College of Cardiology 2018;72:2954-8269 Blood 10/31/2023 4:21 AM EDT 10/31/2023 4:30 AM EDT Narrative Resulting Agency Comment Spec In Lab Rosa Cornejo MD CHEMISTRY ORDERABLE S [facility] [place] [address] * (ABNORMAL) Differential, Automated (10/31/2023 3:05 AM EDT) Neutrophil % 71.7 % [facility] Neutrophil Absolute 8.21(H) 1.70 - 6.10 x10(3)/mc L [facility] Lymph % 16.9 % [facility] Lymphocytes Abs 1.9 0.9 - 3.2 x10(3)/mc L [facility] Monocyte % 9.4 % [facility] Monocyte Abs 1.1(H) 0.3 - 0.9 x10(3)/mc L [facility] Eos % 1.3 % [facility] Eosinophils Abs 0.2 0.0 - 0.4 x10(3)/mc L [facility] Basophil % 0.4 % [facility] [...] HEMATOLOGY ORDERABLE S [facility] [place] [address] * (ABNORMAL) Hemogram (10/31/2023 3:05 AM EDT) White Blood Cell 11.5(H) 4.0 - 9.5 x10(3)/ L [facility] Red Blood Cell 3.75(L) 4.00 - 5.21 x10(6)/[facility] LABORATORY Hemoglobin 12.6 11.7 - [...] [facility] LABORATORY NRBC% auto 0.0 % [facility] NRBC Absolute 0.000 0.000 - 0.000 x10(3)/ L [facility] Blood 10/31/2023 3:05 AM EDT 10/31/2023 3:13 AM EDT Narrative Resulting Agency Comment Spec In Lab Qamar Gallardo MD HEMATOLOGY ORDERABLE S Performing Organization Address [facility] Co de Phone Number [facility] [place] [address] * (ABNORMAL) APTT (10/31/2023 3:05 AM EDT) [...] MD HEMATOLOGY ORDERABL ES Performing Organization Address [facility] de Phone Number [facility] [place] [address] * (ABNORMAL) Prothrombin Time (10/31/2023 3:05 AM [...] HEMATOLOGY ORDERABL ES Performing Organization Address [facility] Co de Phone Number [place] [address] * (ABNORMAL) Differential, Automated (10/31/2023 1:37 AM EDT) Pathologist [facility] [place] Neutrophil % 71.1 % [facility] Neutrophil Absolute 7.53(H) 1.70 - 6.10 x10(3)/ L [facility] Lymph % 18.0 % [facility] Lymphocytes Abs 1.9 0.9 - 3.2 x10(3)/ L [facility] Monocyte % 8.7 % [facility] Monocyte Abs 0.9 0.3 - 0.9 x10(3)/[facility] LABORATORY Eos % 1.6 % [facility] Eosinophils Abs 0.2 0.0 - 0.4 x10(3)/[facility] LABORATORY Basophil % 0.4 % [facility] Baso Absolute 0.0 0.0 - 0.1 x10(3)/[facility] LABORATORY Immature Gran % 0.20 % MAY[facility] [...] HEMATOLOGY ORDERABLE S [facility] [place] [address] * (ABNORMAL) Hemogram (10/31/2023 1:37 AM EDT) Pathologist [facility] [place] White Blood Cell 10.6(H) 4.0 - 9.5 [...] [facility] NRBC% auto 0.0 % [facility] NRBC Absolute 0.000 0.000 - 0.000 x10(3)/ L [facility] Blood 10/31/2023 1:37 AM EDT 10/31/2023 1:46 AM EDT Narrative Resulting Agency Comment Spec In Lab Qamar Gallardo MD HEMATOLOGY ORDERABLE S [facility] [place] [address] * Phosphorus (10/31/2023 1:37 AM EDT) Phosphorus 3.2 2.5 - 4.5 mg/dL [facility] Blood 10/31/2023 1:37 AM EDT 10/31/2023 1:46 AM EDT Narrative Resulting Agency Comment Spec In Lab Rosa Cornejo MD CHEMISTRY ORDERABLE S [facility] [place] [address] * Magnesium (10/31/2023 1:37 AM EDT) Pathologist [facility] [place] Magnesium 0.83 0.69 - 1.07 mmol/L [facility] Blood 10/31/2023 1:37 AM EDT 10/31/2023 1:46 AM EDT Narrative Resulting Agency Comment Spec In Lab Rosa Cornejo MD CHEMISTRY ORDERABLE S Performing Organization Address [facility] Co de Phone Number [facility] [place] [address] * Basic Metabolic Panel (non-fasting) (10/31/2023 1:37 AM EDT) Pathologist [facility] [place] Glucose 114 65 - 199 mg/dL [facility] [...] CHEMISTRY ORDERABLE S [facility] [place] [address] * (ABNORMAL) Troponin (10/31/2023 1:37 AM EDT) [...] troponin value can be found in the Counts Include [facility] Laboratory Test Catalog Troponin - Counts Include [facility] Laboratory Test Catalog Reference: Fourth [place] Definition of Myocardial Infarction. Journal of the [place] College [employer] Cardiology 2018;72:1481-8610 Blood 10/31/2023 1:37 AM EDT 10/31/2023 1:46 AM EDT Narrative Resulting Agency Comment Spec In Lab Rosa Cornejo MD CHEMISTRY ORDERABLE S Performing Organization Address [facility]/ZIP Co de Phone Number [facility] [place] [address] * EKG 12 Lead (10/31/2023 1:20 AM EDT) Ventricular rate 52 BPM MUSE SYSTEM Atrial Rate 52 BPM MUSE SYSTEM P-R Interval 224 ms MUSE SYSTEM QRS Duration 108 ms MUSE SYSTEM Q-T Interval 544 ms MUSE SYSTEM QTC Calculated (Bezet) 505 ms MUSE SYSTEM Calculated P [place] 90 degrees MUSE SYSTEM Calculated R [place] -57 degrees MUSE SYSTEM Calculated T [place] -63 degrees MUSE SYSTEM INTERPRETATION Sinus bradycardia [...] MD ECG ORDERABLES Performing Organization Address City/[facility]/ZIP Co de Phone Number MUSE SYSTEM * EKG 12 Lead (10/30/2023 10:40 PM EDT) Ventricular rate 55 BPM MUSE SYSTEM Atrial Rate 55 BPM MUSE SYSTEM P-R Interval 232 ms MUSE SYSTEM QRS Duration 102 ms MUSE SYSTEM Q-T Interval 520 ms MUSE SYSTEM QTC Calculated (Bezet) 497 ms MUSE SYSTEM Calculated P [place] 75 degrees MUSE SYSTEM Calculated R [place] -53 degrees MUSE SYSTEM Calculated T [place] -57 degrees MUSE SYSTEM INTERPRETATION Sinus bradycardia with 1st degree A-V block Left anterior fascicular block Moderate voltage criteria for LVH, may be normal variant ( R in aVL , [place] product ) T wave abnormality, consider inferior [...] Chest One View (10/30/2023 10:10 PM EDT) [employer] WORKSTATION ID [id number] DH RAD Anatomical Region Laterality Modality Chest [...] and low lung volumes. Findings similar to supervisor cereal radiograph from CT 10/30/2023. Thank you for letting us participate in the care of this patient. ??If you are a health care provider and have any questions regarding this report, please contact the number below. ??For patients who have questions please contact the health youth care worker that requested your imaging first. [...] and low lung volumes. Findings similar to supervisor cereal radiograph from CT 10/30/2023. Thank you for letting us participate in the care of this patient. If youare a health care provider and have any questions regarding this report,please contact the number below. For patients who have questions please contactthe health youth care worker that requested your imaging first. Rosa Cornejo MD IMG DX ORDERABLES * Green Tube HOLD (10/30/2023 10:05 PM EDT) Pathologist [facility] [place] Green Hold Sample in lab. [facility] Blood Venous Draw / Unknown 10/30/2023 10:05 PM EDT 10/30/2023 10:13 PM EDT Qamar Gallardo MD CHEMISTRY ORDERABLES [facility] [place] [address] * (ABNORMAL) Differential, Automated (10/30/2023 10:05 PM EDT) Pathologist [facility] [place] Neutrophil % 76.6 % [facility] Neutrophil Absolute 6.94(H) 1.70 - 6.10 x10(3)/mc L [facility] Lymph % 15.4 % [facility] Lymphocytes Abs 1.4 0.9 - 3.2 x10(3)/mc L [facility] Monocyte % 6.1 % [facility] Monocyte Abs 0.6 0.3 - 0.9 x10(3)/mc L [facility] Eos % 1.1 % [facility] Eosinophils Abs 0.1 0.0 - 0.4 x10(3)/mc L [facility] Basophil % 0.6 % [facility] [...] HEMATOLOGY ORDERABLE S [facility] [place] [address] * (ABNORMAL) Hemogram (10/30/2023 10:05 PM EDT) [...] [facility] NRBC% auto 0.0 % [facility] NRBC Absolute 0.000 0.000 - 0.000 x10(3)/mc L [facility] Blood 10/30/2023 10:0 5 PM EDT 10/30/2023 10:12 PM EDT Narrative Resulting Agency Comment Spec In Lab Qamar Gallardo MD HEMATOLOGY ORDERABLE S Performing Organization Address [facility] Co de Phone Number [facility] [place] [address] * Hemoglobin A1c (10/30/2023 10:05 PM EDT) [...] Mellitus, Diabetes Care 2013; 36: Suppl. 1, S67-92 Estimated Average Glucose See note mg/dL [facility] Comment: Estimated Average Glucose not appropriate for patients over 70 years of age. Blood 10/30/2023 10:0 5 PM EDT 10/30/2023 10:12 PM EDT Narrative Resulting Agency Comment Spec In Lab Rosa Cornejo MD CHEMISTRY ORDERABLE S Performing Organization Address [facility] Co de Phone Number [facility] [place] [address] * Lipid Panel (Reflex Direct LDL) (10/30/2023 10:05 PM EDT) Cholesterol, Total 218 mg/dL [facility] Comment: Desirable: ? <200 mg/dL Borderline High: 200-239 mg/dL Higher: ?>dh=390 mg/dL Triglyceride 46 mg/dL [facility] Comment: Normal: ?<150 mg/dL Borderline High: 150-199 mg/dL High: ?200-499 mg/dL Very High: ? >xl=908 mg/dL HDL Cholesterol 64 mg/dL [facility] Comment: Females: High Risk: <50 mg/dL Males: High Risk: <40 mg/dL LDL Cholesterol 145 mg/dL [facility] Comment: Desirable: ? <100 mg/dL Above Desirable: 100-129 mg/dL Borderline High: 130-159 mg/dL High: ?160-189 mg/dL Very High: ? >wb=606 mg/dL Lipid Interpretation See Note [facility] [...] ACC/AHA Guidelines (most recently Feliciano et al. [facility] 03/23/22): For individuals with atherosclerotic cardiovascular disease (ASCVD)or LDL >th=221 mg/dL, use a high-intensity statin (40-80 mg [...] CHEMISTRY ORDERABLE S Performing Organization Address [facility] Co de Phone Number [facility] [place] [address] * TSH [place] (10/30/2023 10:05 PM EDT) Thyroid Stimulating Hormone 3.35 0.27 - 4.20 mcIU/mL [facility] Comment: Reference Interval (mcIU/mL): Females: ??First Trimester: 0.23-3.88 ??Second Trimester: 0.22-3.90 ??Third Trimester: 0.44-4.66 Blood 10/30/2023 10:0 5 PM EDT 10/30/2023 10:12 PM EDT Narrative Resulting Agency Comment Spec In Lab Rosa Cornejo MD CHEMISTRY ORDERABLE S Performing Organization Address [facility] Co de Phone Number [facility] [place] [address] * pro-Brain Natriuretic Peptide (10/30/2023 10:05 PM EDT) NT-proBNP 375 <=449 pg/mL [facility] Blood 10/30/2023 10:0 5 PM EDT 10/30/2023 10:12 PM EDT Narrative Resulting Agency Comment Spec In Lab Rosa Cornejo MD CHEMISTRY ORDERABLE S [facility] [place] [address] * (ABNORMAL) Comprehensive metabolic panel (non-fasting) (10/30/2023 [...] CHEMISTRY ORDERABLE S Performing Organization Address City/[facility]/ZIP Co de Phone Number [facility] [place] [address] * Phosphorus (10/30/2023 10:05 PM EDT) Phosphorus 3.3 2.5 - 4.5 mg/dL [facility] Blood 10/30/2023 10:0 5 PM EDT 10/30/2023 10:12 PM EDT Narrative Resulting Agency Comment Spec In Lab Rosa Cornejo MD CHEMISTRY ORDERABLE S Performing Organization Address City/[facility]/ZIP Co de Phone Number [facility] [place] [address] * Magnesium (10/30/2023 10:05 PM EDT) Magnesium 0.86 0.69 - 1.07 mmol/L [facility] Blood 10/30/2023 10:0 5 PM EDT 10/30/2023 10:12 PM EDT Narrative Resulting Agency Comment Spec In Lab Rosa Cornejo MD CHEMISTRY ORDERABLE S Performing Organization Address City/[facility]/ZIP Co de Phone Number [facility] [place] [address] * (ABNORMAL) Troponin (10/30/2023 10:05 PM EDT) [facility] Troponin-T, High Sensitivity 214(H) <=14 ng/L [facility] [...] troponin value can be found in the Counts Include [facility] Laboratory Test Catalog Troponin - Counts Include [facility] Laboratory Test Catalog Reference: Fourth [place] Definition of Myocardial Infarction. Journal of the [place] [employer] 2018;72:1985-2659 Blood 10/30/2023 10:0 5 PM EDT 10/30/2023 10:12 PM EDT Narrative Resulting Agency Comment Spec In Lab Rosa Cornejo MD CHEMISTRY ORDERABLE S [facility] [place] [address] * EKG 12 Lead (10/30/2023 8:21 PM EDT) [facility] Ventricular rate 49 BPM MUSE SYSTEM Atrial Rate 49 BPM MUSE SYSTEM P-R Interval 230 ms MUSE SYSTEM QRS Duration 96 ms MUSE SYSTEM Q-T Interval 526 ms MUSE SYSTEM QTC Calculated (Bezet) 475 ms MUSE SYSTEM Calculated P [place] 98 degrees MUSE SYSTEM Calculated R [place] -48 degrees MUSE SYSTEM Calculated T [place] -51 degrees MUSE SYSTEM INTERPRETATION Sinus bradycardia with 1st degree A-V block Incomplete right bundle branch block Left anterior fascicular block Moderate voltage criteria for LVH, may be normal variant ( R in aVL , [place] product ) T wave abnormality, consider inferior [...] (Intra-Procedure), Routine 1359 (Given - Provider: Jean Oliveria, TANESHA)1414 (Given - Provider: Parisa Kowalski RN)1439 [...] (Intra-Procedure), Routine 1346 (Given - Provider: Jason Jimnees RN) nitroGLYcerin (Nitrostat) disintegrating tablet 0.4 mg [...] 24 to 72 hours., Routine 1333 ([facility] Hold - Provider: Admin Adt - Reason: Transfer to a Procedural area)1548 ([facility] Unhold - Provider: Admin Adt) sodium chloride 0.9 % (flush) (BD PosiFlush Normal Saline 0.9) flush 5-20 mL 5-20 mL, Intravenous, EVERY 1 MIN PRN, Starting on 10/30/23 at 2208, Until Amna 11/03/23 at 1913, flush, Flush pertains to all indwelling lines. Flush per protocol found in the job aid using the link provided on this medication record., Routine 1333 ([facility] Hold - Provider: Admin Adt - Reason: Transfer to a Procedural area)1548 ([facility] Unhold - Provider: Admin Adt) documented in this encounter Additional Health Concerns Infection Onset Date Last Indicated Resolved Time Rule Out Respiratory 11/02/2023 11/02/2023 024 12:22 PM EDT Rule Out COVID-19 11/02/2023 11/02/2023 11/02/2023 12:22 PM EDT documented as of this encounter Care Teams Automotive General Sales Manager Relationship Specialty Start Date End Date Rosie Mathews MD [address] [place] [address] PCP - General Family Medicine 11/25/17 11/23/23 documented as of this encounter
--- OUTSIDE RECORDS SUMMARY | 2024-03-12 10:12 | XMS_ITS | Encounter Summary ---
Author Organization [facility] Address [facility] [place] [address] Care Team Providers Care Fashion Intern Name Role Phone Rosie Mathews MD Primary Care Provider [phone] Encounter Details Date Type Department Care Team (Late st Contact Info) Description 11/18/2023 External Results Administration [facility] [place] [address] Social History Tobacco Use Types Packs/Day Years [...] 11:20 AM EDT Office Visit Cardiology at [address] [id number] Izaiah Meyer MD [facility] [place] [address] documented as of this encounter Procedures Procedure Name Priority Date/Time Associated Diagnosis Comments ECG SCAN Routine 11/18/2023 4:50 PM EDT documented in this encounter Results * Scan Doc: ECG (11/18/2023 4:50 PM EDT) Historical Provider MEDIA MGR SCAN EX T ORDR/RSLT documented in this encounter Visit Diagnoses Not on filedocumented in this encounter Care Teams Fashion Intern Relationship Specialty Start Date End Date Rosie Mathews MD [address] [place] [address] PCP - General Family Medicine 11/25/17 11/23/23 documented as of this encounter
--- OUTSIDE RECORDS SUMMARY | 2024-03-12 10:12 | XMS_ITS | Encounter Summary ---
Author Organization [facility] Address [facility] [place] [address] Care Team Providers Care Pediatric Neuropsychologist Name Role Phone Masood Pierson MD Primary Care Provider [phone] Encounter Details Date Type Department Care Team (Late st Contact Info) Description 02/24/2024 External Results Transfer Center [facility] [place] [phone] Social History Tobacco Use Types Packs/Day Years Used Date Smoking Tobacco: Former Smokeless Tobacco: Never Alcohol Use Standard Drinks/Week Comments Not Currently 0 (1 standard drink = 0.6 oz pur e alcohol) [facility] Utilities Answer Date Recorded In the past 12 months has [employer], gas, oil, or water [employer] threatened to shut off services in [...] AM EDT Office Visit Cardiology at [address] [place] [address] Izaiah Meyre MD [facility] [place] [address] documented as of this encounter Procedures Procedure Name Priority Date/Time Associated Diagnosis Comments MISC EXTERNAL CARDIOLOGY RESULT Routine 02/24/2024 11:10 PM EDT documented in this encounter Results * External Cardiology Result (02/24/2024 11:10 PM EDT) Anatomical Region Laterality Modality Other Historical Provider EXTERNAL CARDIOLO GY RESULT documented in this encounter Visit Diagnoses Not on filedocumented in this encounter Care Teams Pediatric Neuropsychologist Relationship Specialty Start Date End Date Masood Pierson MD [address] [place] [address] PCP - General Family Medicine 11/24/23 documented as of this encounter
--- OUTSIDE RECORDS SUMMARY | 2024-03-12 10:12 | XMS_ITS | Clinical Summary ---
Author Organization [facility] Address [facility] [place] [address] Care Team Providers Care Gutter Hanger Name Role Phone Masood Pierson MD Primary Care Provider [phone] Allergies Active Allergy Reactions Criticality Noted Date [...] Care Team Description 02/27/2024 Telephone Cardiology at [address] [address] Izaiah Meyer MD 02/24/2024 11:10 PM EDT Ancillary Procedure Radiology Library at [facility] [place] [address] Masood Pierson MD 02/24/2024 External Results Transfer Center [facility] [place] [address] 12/16/2023 Telephone Cardiology at [address] [address] Izaiah Meyer MD from Last 3 Months Social History Tobacco Use Types Packs/Day Years Used Date Smoking Tobacco: Former Smokeless Tobacco: Never Alcohol Use Standard Drinks/Week Comments Not Currently 0 (1 standard drink = 0.6 oz pur e alcohol) [facility] Utilities Answer Date Recorded In the past 12 months has th e electric, gas, oil, or water [employer] threatened to shut off services in your [...] AM EDT Office Visit Cardiology at [address] [place] [address] Izaiah Meyer MD [facility] [place] [address] Health Maintenance Due Date Last Done Comments [...] CT Chest (02/24/2024 11:05 PM EDT) Narrative [facility] - 02/24/2024 11:05 PM EDT This exam is auto-finalizing. It's purpose is for storage only. Masood Piersno MD IMG FILM LIBRARY ORD ERABLES Performing Organization Address City/State/[facility] Co de Phone Number [place], [place] from Last 3 Months Advance Directives * Attempt Cardiopulmonary Resuscitation - Inpatient (Latest Code Status on File) Date Activated Date Inactivated Comments 10/30/2023 9:58 PM 11/03/2023 7:13 PM Question Answer Comments Code Status decision made by: Patient Care Teams Gutter Hanger Relationship Specialty Start Date End Date Masood Pierson MD [address] [place] [address] PCP - General Family Medicine 11/24/23
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
--- OUTSIDE RECORDS SUMMARY | 2024-03-12 10:13 | XMS_ITS | Encounter Summary ---
Author Organization Formerly [facility] [place] [address] Care Team Providers Care Field Sales Associate Name Role Phone Rosie Mathews MD Primary Care Provider [phone] Reason for Visit * Auth/Cert (Routine) Specialty Diagnoses / Procedures Referred By Contac t Referred To Contact Diagnoses Unstable angina Chest pain NSTEMI Procedures CARDIAC CATHETERIZATION Rosa Dewey MD [facility] [place] [address] [facility] Referral ID Status Reason Start Date Expiration Date Visits Re quested Visits Authorized [id number] 1 1 Encounter Details Date Type Department Care Team (Late st Contact Info) Description 10/30/2023 4:25 PM EDT - 10/30/2023 5:27 PM EDT Surgery [place] [address] Rosa Dewey MD [facility] [address] [place], [place] [id number] CARDIAC CATHETERIZATION Social History Tobacco Use Types Packs/Day Years Used Date Smoking Tobacco: Former Smokeless Tobacco: Never Alcohol Use Standard Drinks/Week Comments Not Currently 0 (1 standard drink = 0.6 oz pur e alcohol) [facility] Inpatient Questions Answer Date Recorded Does [...] [facility] a transfer from [facility] as a possible STEMI alert with acute onset chest pain. The patient reports that her symptoms initially began on Tuesday when she was walking to [facility] and experienced bilateral arm heaviness while walking with no other symptoms. Then, this afternoon shereports developing bilateral achy shoulder pain and nonradiating substernal left-sided chest pressure that was 7/10 in severity after coming home from [place]. The patient denies any associated fevers, chills, [...] the patient was taken directly to the Agricultural Research Engineer. Two lesions were discovered: one in the prox RCA (felt to almost be a TECHNICIAN'S HELPER but they were able to wire, balloon, [...] dose administered prior to arrival in the minilab operator. Recommended anti-platelet/anti-thrombotic regimen: Continue aspirin 81 mg [...] and low lung volumes. Findings similar to plastic parts designer radiograph from CT 10/30/2023. Pending Studies and [...] 10:40 AM Izaiah Meyer MD Cardiology at [place] Arrive at: [facility] [address] [phone] Future Orders Complete By Expires Referral to Cardiac Rehab [[id number] Custom] As directed Process Instructions: If no progress note charted, please enter Clinical details in comments. Scheduling Instructions: Questions: My question or request is: STEMI. Cardiac rehab at [facility]. Referral to Home Health [[id number] Custom] As directed Process Instructions: If no progress note charted, please enter Clinical details in comments. Scheduling Instructions: Comments: Please evaluate Adin Santos for admission to Home Health. [address] [place] [address] [place] [phone] (home) Date of : 1940 Inpatient DOCUMENTATION FOR VNA SERVICES (INCLUDING THOSE PATIENTS WITH MEDICARE COVERAGE REQUIRING HOME VNA SERVICES AND/OR HOSPICE SERVICES) PATIENT'S LOCATION: Adin Santos [address] [facility] [phone] (home) Cell: Telephone Information: Refining Equipment Operator's Name: self In discussion with the attending physician, it is certified that this patient is under their care and that they, or a Nurse Practitioner, Clinical Nurse specialist or Physician Powerhouse Engineer who is working directly with them, had [...] [facility] [address] [place] [address] START OF CARE: within 24-48 hours of [...] Rosie Mathews MD [address] / [facility] [address] . All A agencies which cover the [...] MD / Dr. Masood Pierson [address] [place] [address] 11/09/23 1:55 PM arrival for 2:10 PM appointment Diathermy Equipment Repairer: Izaiah Meyer MD [address] [place] [address] , 11/24/2023 10:40 AM Your Inpatient Medical Team at [facility] Name(s) of your inpatient provider(s): Attending physician: Rosa Hugo MD Resident physicians: Emile Robles MD; Elmer Tamez MD If you have non-emergent questions, prior to your follow-up visit call: Tuesday-Tuesday between the hours of 8AM-5PM please call the Cardiology Clinic [phone] to speak with a nurse. All other hours please call the Hospital Linen Room Supervisor [phone] and ask to speak to the slide developer on-call. Your Primary Care Provider Rosie Mathews MD [phone] For questions regarding this document or issues relating to this hospitalization on the Medical Service, please contact your inpatient physician through the [facility] Linen Room Supervisor . Issues afterhours and on weekends will be handled by the Diathermy Equipment Repairer staff on-call. Associated attestation - Rosa Hugo [...] MD / Dr. Masood Pierson [address] [place] [address] 11/09/23 1:55 PM arrival for 2:10 PM appointment Diathermy Equipment Repairer: Izaiah Meyer MD [address] [place] [address] , 11/24/2023 10:40 AM Your Inpatient Medical Team at [facility] Name(s) of your inpatient provider(s): Attending physician: Rosa Hugo MD Resident physicians: Emile Robles MD; Elmer Tamez MD If you have non-emergent questions, prior to your follow-up visit call: Tuesday-Tuesday between the hours of 8AM-5PM please call the Cardiology Clinic [phone] to speak with a nurse. All other hours please call the Hospital Linen Room Supervisor [phone] and ask to speak to the slide developer on-call. Your Primary Care Provider Rosie Mathews MD [phone] documented in this encounter Medications at Time [...] [facility] [...] [facility] a transfer from [facility] as a possible STEMI alert with acute onset chest pain who is s/p PCI of RCA (10/29) and s/p PCI of LCX/OM (10/31). #ACS, concern for possible STEMI at the outside hospital #S/p PCI to proximal RCA (10/29) #S/p staged PCI to LCX/OM (10/31) #Hyperlipidemia #HTN #Tachycardia Ms. Santso notes no chest pain this morning. She [...] Resident on Cardiology Service Cardiology S1 (Pager [phone]) Note written in conjunction with Claudio Perla [facility] Medical Student, MS3 Associated attestation - [...] Nirmala Webb - 11/01/2023 11:25 AM EDT Assistant Account Executive Encounter Note Patient Name: Adin Santos : [id number] MR#: [id number] Admit Date: 10/30/2023 5:11 PM Hospital Day 2 days Narrative: Self initiated visit to patient for Spiritual support in a regular unit rounds. Assessment: Patient is in the bathroom at the time of this visit. Not a good time for Video Game Technician visit. Intervention and Outcome: An attempted [...] [facility] [...] and low lung volumes. Findings similar to plastic parts designer radiograph from CT 10/30/2023. Scheduled Medications: [MAR [...] [facility] [...] Resident on Cardiology Service Cardiology S1 (Pager [phone]) Note written in conjunction with Claudio Perla [facility] Medical Student, MS3 Associated attestation - [...] [facility] a transfer from [facility] as a possible STEMI alert with acute onset chest pain. Active Problems: Active Hospital Problems Diagnosis Unstable angina Resolved Hospital Problems No resolved problems to display. 24 hr events: - Cath'd yesterday with lesion in the proximal RCA (initially thought it was TECHNICIAN'S HELPER but they were ableto wire, balloon and [...] and low lung volumes. Findings similar to plastic parts designer radiograph from CT 10/30/2023. TTE (10/30): Interpretation [...] [facility] [...] Resident on Cardiology Service Cardiology S1 (Pager [phone]) Note written in conjunction with Claudio Perla [facility] Medical Student, MS3 Associated attestation - [...] PCP: Rosie Mathews MD PCP phone number: [phone] Date of Admission: 10/30/2023 ( Hospital Day 0 days ) Attending:Rosa Cornejo MD ID: Adin Santos is a 83 y.o. female PMH significant for hypertension and hyperlipidemia who presented to [facility] as a transfer from [facility] as a possible STEMI alert with acute onset chest pain. The patient reports that her symptoms initially began on Tuesday when she was walking to [facility] and experienced bilateral arm heaviness while walking with no other symptoms. Then, this afternoon shereports developing bilateral achy shoulder pain and nonradiating substernal left-sided chest pressure that was 7/10 in severity after coming home from [place]. The patient denies any associated fevers, chills, [...] the patient was taken directly to the Agricultural Research Engineer. 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 Findings similar to plastic parts designer radiograph from CT 10/30/2023. Assessment & Plan: Adin Santos is a 83 y.o. female PMH significant for hypertension and hyperlipidemia who presented to [facility] as a transfer from [facility] [...] with HTN HLD transferred with chest from [facility]. BP 217/68, HR 71 EKG with [...] information for follow-up Home Health [facility] H[facility], [place] [address] TANESHA BOYCE confirmed with Brittany CARVAJAL that [...] in the room. Electrolytes replaced, see MAR. fence laborer sites remained C/D/I with baseline ecchymosis unchanged. Pt complained of back pain, lidocaine patch given. Right IV infiltrated during infusion, patient is marked with sharpie, IV removed. See flowsheet for I+O's and safety rounding. Patient is able to make needs known and call capps within reach. PLAN MOVING FORWARD: Monitor Tele, control BP, monitor minilab operator sites, D/C Planning INDIVIDUALIZED FALL PREVENTION INTERVENTIONS: [...] in an outpatient cardiac rehabilitation program at [facility] was discussed. Patient agrees to a [...] and above on RA. PT went to minilab operator today. Left fem site oozed throughout shift, [...] MOVING FORWARD: Monitor Tele, control BP, monitor minilab operator sites, D/C Planning INDIVIDUALIZED FALL PREVENTION INTERVENTIONS: [...] Admitted From: Transfer from another hospital Location: [facility] Reason for Hospitalization: chest pain Covid Vaccination Status: 1st, 2nd & booster Past medical History: No past medical history on file. Hospitalizations Within the Past 30 Days: no previous admission in last 30 days Current Decision-Making Capacity: Self If AD's have not been completed the following surrogate would be surrogate decision maker per [place] surrogate decision making law. (Only good for 180 days) Any patient receiving care in [place] must abide by [place] law. The hierarchy for surrogate decision making [...] (i) The agent with financial power of immigration attorney or a conservator appointed in accordance [...] has the electric, gas, oil, or water [employer] threatened to shut off services in your [...] toilet seat Home Address confirmed as: [address] [facility] [address] Social & Family Supports: All names listed below confirmed with patient as current and correct Extended Emergency Contact Information Primary Emergency Contact: Iris Downing Address: [address], [place] [id number] [place] [address] Mobile Relation: Child Secondary Emergency Contact: Karen More Address: [address] [place] Relation: Child Current Care Provided by: self Provides Primary Care For: no one Caregiver if needed: child(emmanuel), adult Quality of Family relationships: involved, supportive Community Resources being provided currently: other (see comments) (receives [facility] services at home (1xweekly)) Behavioral [...] Insurance: N/A Prescription Coverage: Yes Preferred Pharmacy: [facility] [place], [place] - [address] [place] [address] [place] [address] [place] Status: Patient is a : No Primary Care Provider listed: Masood Pierson MD [phone] Patient/Caregiver Goals of Treatment: home when MR Potential Needs for Transition of Care: home health care Agency Referrals: Not Applicable I have met with the patient to: discuss discharge planning needs. provide the [facility], Office of Care Management letter from the Epic Radiant Analyst pertaining to rehab referrals. provide a letter describing our affiliations within the [facility] and educate about their right to choose where referrals are sent. provide a list of Home Health Agencies / Durable Medical Equipment vendors which serve their preferred geographic area. provided patient with CMS Star Quality Rating handout. They have requested referrals to: [facility] [address] [place] [address] Note routed to a Child Welfare Counselor who will communicate referrals to facilities and [...] results. PO hydralazine added for BP control. fence laborer sites remain C/D/I, ecchymosis unchanged th roughout shift. See flowsheet for I+O's and safety rounding. Patient is able to make needs known and call capps within reach. PLAN MOVING FORWARD: Monitor Tele, control CP and BP, NPO at MD for cath, monitor minilab operator sites, D/C Planning INDIVIDUALIZED FALL PREVENTION INTERVENTIONS: [...] AM EDT Office Visit Cardiology at [address] [address] Izaiah Meyer MD [facility] [place] [address] Scheduled Referrals Name Type Priority Associated Diagnoses [...] MD HEMATOLOGY ORDERABLE S [facility] [place] [address] * (ABNORMAL) Hemogram (11/03/2023 3:46 AM EDT) White Blood Cell 8.3 4.0 - 9.5 x10(3)/[facility] LABORATORY Red Blood Cell 3.77(L) 4.00 - 5.21 x10(6)/[facility] LABORATORY Hemoglobin 13.1 11.7 - 15.5 [...] RDW Standard Deviation 54.7(H) 37.0 - 46.0 [facility] LABORATORY RDW coefficient of variation 14.6(H) 11.5 - 14.1 % [facility] Mean Platelet Volume 11.2 7.6 - 12.9 [facility] LABORATORY NRBC% auto 0.0 % [facility] NRBC Absolute 0.000 0.000 - 0.000 x10(3)/ L [facility] Blood 11/03/2023 3:46 AM EDT 11/03/2023 4:11 AM EDT Narrative Resulting Agency Comment Spec In Lab Qamar Gallardo MD HEMATOLOGY ORDERABLE S Performing Organization Address City/[facility]/ZIP Co de Phone Number [facility] [place] [address] * Phosphorus (11/03/2023 3:46 AM EDT) Phosphorus 3.2 2.5 - 4.5 mg/dL [facility] Comment:result rechecked-KS Blood 11/03/2023 3:46 AM EDT 11/03/2023 4:11 AM EDT Narrative Resulting Agency Comment Spec In Lab Rosa Cornejo MD CHEMISTRY ORDERABLE S Performing Organization Address [facility]/ZIP Co de Phone Number [facility] [place] [address] * Magnesium (11/03/2023 3:46 AM EDT) Magnesium 0.90 0.69 - 1.07 mmol/L [facility] Blood 11/03/2023 3:46 AM EDT 11/03/2023 4:11 AM EDT Narrative Resulting Agency Comment Spec In Lab Rosa Cornejo MD CHEMISTRY ORDERABLE S Performing Organization Address City/[facility]/ZIP Co de Phone Number [facility] [place] [address] * (ABNORMAL) Basic Metabolic Panel (non-fasting) (11/03/2023 [...] MD CHEMISTRY ORDERABLE S [facility] [place] [address] * EKG 12 Lead (11/02/2023 12:44 PM EDT) Ventricular rate 83 BPM MUSE SYSTEM Atrial Rate 83 BPM MUSE SYSTEM P-R Interval 216 ms MUSE SYSTEM QRS Duration 90 ms MUSE SYSTEM Q-T Interval 384 ms MUSE SYSTEM QTC Calculated (Bezet) 451 ms MUSE SYSTEM Calculated P Lamont 92 degrees MUSE SYSTEM Calculated R Lamont -51 degrees MUSE SYSTEM Calculated T Lamont -33 degrees MUSE SYSTEM INTERPRETATION Sinus rhythm [...] RBC, Urine <1 0 - 4 /HPF [facility] Comment: Interpret results with caution, microscopic results are from suboptimal specimen volume WBC, Urine 16(H) 0 - 5 /HPF [facility] Comment: Interpret results [...] Tamez MD URINE ORDERABLES [facility] [place] [address] * (ABNORMAL) Urinalysis with reflex Culture (11/02/2023 [...] LABORATORY Leukocytes, Urine Dipstick Small(A) Negative [facility] LABORATORY Appearance, Urine Dipstick Cloudy(A) Clear [facility] Specific [place] Urine Automated >=1.030(A) 1.005 - 1.030 [facility] Color, Urine Dipstick Dark Yellow Yellow [facility] Reflex to Culture Yes [facility] Clean Catch Urine 11/02/2023 11:40 AM EDT 11/02/2023 12:04 PM EDT Narrative Resulting Agency Comment Spec In Lab Rosa Hugo MD URINE ORDERABLES [facility] [place] [address] * Respiratory Panel PCR (11/02/2023 10:15 AM EDT) Respiratory Panel Source MARKETING ADMIN Swab [facility] Respiratory Panel PCR Negative Negative [facility] Comment: Respiratory Panels are performed on the Saluspot, using multiplexed PCR nucleic acid detection. ??Negative [...] performed using the BioFire Respiratory Panel 2.1 (Quietyme) as authorized by the FDA issued Emergency Use Authorization (EUA). This panel also tests for multiple other viral and bacterial pathogens. This assay is intended for In-vitro Diagnostic (IVD) use with nasopharyngeal swabs in viral transport media. The assay is performed based on the instructions for use and additional guidance provided by the FDA. Testing is performed in laboratories within the [facility], each of which is certified under [...] fact sheets at the following FDA website: https://www.fda.gov/medical-devices/fxknwqpvzpy-kplzich-6444-jwanf-49-vjsrbsczd- use-a tnlwhowujivel-jdbaesf-qjgurvo/ybcrp-dnndalmgmab-ccdm Human Metapneumovirus Not Detected Not Detected [facility] [...] - GEN ERAL ORDERABLES [facility] [place] [address] * XR Chest One View (11/02/2023 2:51 AM EDT) WORKSTATION ID [id number] DH RAD Anatomical Region Laterality Modality Chest [...] therapist that requested your imaging first. Rosa Hugo [...] [facility] Monocyte % 12.9 % [facility] Monocyte Abs 1.3(H) 0.3 - 0.9 x10(3)/mc L [facility] Eos % 1.4 % [facility] Eosinophils Abs 0.1 0.0 - 0.4 x10(3)/mc L [facility] Basophil % 0.4 % [facility] [...] MD HEMATOLOGY ORDERABLE S [facility] [place] [address] * (ABNORMAL) Hemogram (11/02/2023 12:35 AM EDT) [...] MD HEMATOLOGY ORDERABLE S [facility] [place] [address] * (ABNORMAL) Phosphorus (11/02/2023 12:35 AM EDT) Phosphorus 1.6(L) 2.5 - 4.5 mg/dL [facility] Blood 11/02/2023 12:3 5 AM EDT 11/02/2023 12:43 AM EDT Narrative Resulting Agency Comment Spec In Lab Rosa Cornejo MD CHEMISTRY ORDERABLE S Performing Organization Address [facility]/ZIP Co de Phone Number [facility] [place] [address] * Magnesium (11/02/2023 12:35 AM EDT) Magnesium 0.87 0.69 - 1.07 mmol/L [facility] Blood 11/02/2023 12:3 5 AM EDT 11/02/2023 12:43 AM EDT Narrative Resulting Agency Comment Spec In Lab Rosa Cornejo MD CHEMISTRY ORDERABLE S Performing Organization Address City/[facility]/ZIP Co de Phone Number [facility] [place] [address] * Basic Metabolic Panel (non-fasting) (11/02/2023 12:35 [...] MD CHEMISTRY ORDERABLE S [facility] [place] [address] * Blood culture (11/02/2023 12:35 AM EDT) Blood Culture No growth at 5 days. [facility] Blood 11/02/2023 12:3 5 AM EDT 11/02/2023 1:55 AM EDT Comment:#2 site ukn Narrative Resulting Agency Comment Spec In Lab Rosa Hugo MD MICROBIOLOGY - BLO OD ORDERABLES Performing Organization Address [facility] Co de Phone Number [facility] [place] [address] * Blood culture (11/02/2023 12:15 AM EDT) Blood Culture No growth at 5 days. [facility] Blood 11/02/2023 12:1 5 AM EDT 11/02/2023 1:54 AM EDT Comment:#1site unk Narrative Resulting Agency Comment Spec In Lab Rosa Hugo MD MICROBIOLOGY - BLO OD ORDERABLES Performing Organization Address [facility] Co de Phone Number [facility] [place] [address] * EKG 12 Lead (11/01/2023 10:10 PM EDT) Ventricular rate 139 BPM MUSE SYSTEM Atrial Rate 139 BPM MUSE SYSTEM P-R Interval 168 ms MUSE SYSTEM QRS Duration 84 ms MUSE SYSTEM Q-T Interval 286 ms MUSE SYSTEM QTC Calculated (Bezet) 435 ms MUSE SYSTEM Calculated R Lamont -59 degrees MUSE SYSTEM Calculated T Lamont -27 degrees MUSE SYSTEM INTERPRETATION Mid-RP tachycardia, consider sinus tachycardia or SVT Left axis deviation Moderate voltage criteria for LVH, may be normal variant ( R in aVL , [place] product ) Inferior infarct (cited on or before 01-NOV-2023) Anterolateral infarct (cited on or before 01-NOV-2023) Abnormal ECG When compared with ECG of 01-NOV-2023 15:22, Vent. rate Although rate has increased Serial changes of Anterior infarct Present I personally reviewed the tracing and edited the fellows interpretation Confirmed by fellow MD Bowen Ashley ([id number]) on 11/04/2023 7:57:50 AM Confirmed by MD Carrillo Danette ([id number]) on 11/04/2023 4:32:03 PM MUSE SYSTEM 11/01/2023 10:1 0 PM EDT 11/04/2023 4:32 PM EDT Rosa Cornejo MD ECG ORDERABLES MUSE SYSTEM * (ABNORMAL) Hemogram (11/01/2023 10:06 PM EDT) White Blood Cell 10.4(H) 4.0 - 9.5 x10(3)/[facility] LABORATORY Red Blood Cell 4.11 4.00 - 5.21 x10(6)/[facility] LABORATORY Hemoglobin 14.0 11.7 - 15.5 [...] MD HEMATOLOGY ORDERAB LES Performing Organization Address City/[facility]/ZIP Co de Phone Number [facility] [place] [address] * POCT Glucose (11/01/2023 5:59 PM EDT) [facility] Signature Glucose, POC 104 65 - 199 mg/dL [facility] Comment: Supplemental ranges: <140 mg/dL before meals <180 mg/dL all other times of the day Blood 11/01/2023 5:59 PM EDT 11/01/2023 5:59 PM EDT Rosa Hugo MD POINT OF CARE TEST ORDERABLES Performing Organization Address [facility] Co de Phone Number [facility] [place] [address] * POCT Glucose (11/01/2023 5:35 PM EDT) [facility] Glucose, POC 85 65 - 199 mg/dL [facility] Comment: Supplemental ranges: <140 mg/dL before meals <180 mg/dL all other times of the day Blood 11/01/2023 5:35 PM EDT 11/01/2023 5:35 PM EDT Rosa Hugo MD POINT OF CARE TEST ORDERABLES Performing Organization Address City/[facility] Co de Phone Number [facility] [place] [address] * EKG 12 Lead (11/01/2023 3:22 PM EDT) Ventricular rate 59 BPM MUSE SYSTEM Atrial Rate 59 BPM MUSE SYSTEM P-R Interval 220 ms MUSE SYSTEM QRS Duration 94 ms MUSE SYSTEM Q-T Interval 428 ms MUSE SYSTEM QTC Calculated (Bezet) 423 ms MUSE SYSTEM Calculated P Lamont 76 degrees MUSE SYSTEM Calculated R Lamont -50 degrees MUSE SYSTEM Calculated T Lamont -59 degrees MUSE SYSTEM INTERPRETATION Sinus bradycardia [...] Modality Other Narrative 11/02/2023 4:57 PM EDT ?[facility] ? Cardiac Catheterization/Intervention Report ? Patient Name: Adin Santos ? Procedure Date: 11/01/2023 ? A #: [id number] ? Primary Physician: Rosa Dewey I ? Case #: [id number] ? File Name: [id number] ? Catheterization Order Number: [id number] ? [facility] ? Final Report [place], [place] ? Patient Name: ? Adin M. Goguen ?ID#: ?[id number] ? : ?1940 ? Procedure Date: ? [...] procedure was Urgent. The indication for ?the minilab operator visit is ACS greater than 24 hrs. [...] ??A premounted ? 3.50 x 15 mm Milldale Orange (RADHA) was deployed with a maximum ? [...] A premounted 3.50 x 15 mm Andrea Orange (RADHA) was deployed ? with a maximum [...] dose administered prior to arrival in the minilab operator. ?Recommended anti-platelet/anti-thrombotic regimen: ?Continue aspirin 81 mg [...] Procedure Note Rosa Dewey MD - 12/12/2023 [facility] Cardiac Catheterization/Intervention Report Patient Name: Adin Santos Procedure Date: 11/01/2023 A #: [id number] Primary Physician: Rosa Dewey I Case #: [id number] File Name: [id number] Catheterization Order Number: [id number] [facility] FinalReport [place], [place] Patient Name: Adin Santos ID#:[id number] :1940 Procedure Date: November 01, 2023 Case [...] was designated as ASA Class III. [facility] Vulnerable. Diagnostic Tests: Prior Coronary Angiography: LV ejection fraction within 6 months is 65%. Electrocardiography: EKG was assessed by ECG. EKG was Abnormal. EKG showed other abnormality. Medications Prior to Procedure: Aspirin, Angiotensin II Receptor Rodrick and Statin. Indications for Diagnostic Cath: The priority of the diagnostic procedure was Urgent. The indicationfor the minilab operator visit is ACS greater than 24 hrs. [...] 14 atmospheres. Apremounted 3.50 x 15 mm Milldale Orange (RADHA) was deployed with amaximum inflation pressure [...] The lesion was predilated with a 3.00mm [id number] MM balloon with a maximum inflation pressure of 14atmospheres. A premounted 3.50 x 15 mm Milldale Orange (RADHA) wasdeployed with a maximum inflation pressure [...] dose administered prior to arrival in the minilab operator. Recommended anti-platelet/anti-thrombotic regimen: Continue aspirin 81 mg [...] * POCT Glucose (11/01/2023 7:06 AM EDT) [facility] Glucose, POC 93 65 - 199 mg/dL [facility] Comment: Supplemental ranges: <140 mg/dL before meals <180 mg/dL all other times of the day Blood 11/01/2023 7:06 AM EDT 11/01/2023 7:06 AM EDT Jean Laboy MD POINT OF CARE TEST O RDERABLES [facility] [place] [address] * (ABNORMAL) Differential, Automated (11/01/2023 3:09 AM EDT) Pathologist [facility] Neutrophil % 63.9 % [facility] Neutrophil Absolute 5.54 1.70 - 6.10 x10(3)/mc L [facility] Lymph % 20.0 % [facility] Lymphocytes Abs 1.7 0.9 - 3.2 x10(3)/mc L [facility] Monocyte % 11.9 % [facility] [...] MD HEMATOLOGY ORDERABLE S Performing Organization Address City/State/[facility] Co de Phone Number [facility] [place] [address] * (ABNORMAL) Hemogram (11/01/2023 3:09 AM EDT) [...] HEMATOLOGY ORDERABLE S Performing Organization Address City/[facility]/ZIP Co de Phone Number [facility] [place] [address] * Phosphorus (11/01/2023 3:09 AM EDT) Phosphorus 2.5 2.5 - 4.5 mg/dL [facility] Blood 11/01/2023 3:09 AM EDT 11/01/2023 3:29 AM EDT Narrative Resulting Agency Comment Spec In Lab Rosa Cornejo MD CHEMISTRY ORDERABLE S Performing Organization Address City/[facility]/ZIP Co de Phone Number [facility] [place] [address] * Magnesium (11/01/2023 3:09 AM EDT) Magnesium 0.82 0.69 - 1.07 mmol/L [facility] Blood 11/01/2023 3:09 AM EDT 11/01/2023 3:29 AM EDT Narrative Resulting Agency Comment Spec In Lab Rosa Cornejo MD CHEMISTRY ORDERABLE S [facility] [place] [address] * (ABNORMAL) Basic Metabolic Panel (non-fasting) (11/01/2023 [...] MD CHEMISTRY ORDERABLE S [facility] [place] [address] * (ABNORMAL) Troponin (10/31/2023 2:46 PM EDT) [...] troponin value can be found in the [facility] Laboratory Test Catalog Troponin - [facility] Test Catalog Reference: Fourth [place] Definition of Myocardial Infarction. Journal of the [place] [employer] 2018;72:9219-9936 Blood 10/31/2023 2:46 PM EDT 10/31/2023 2:55 PM EDT Narrative Resulting Agency Comment Spec In Lab Jean Laboy MD CHEMISTRY ORDERABLES Performing Organization Address [facility] Co de Phone Number [facility] [place] [address] * EKG 12 Lead (10/31/2023 1:07 PM EDT) Ventricular rate 54 BPM MUSE SYSTEM Atrial Rate 54 BPM MUSE SYSTEM P-R Interval 218 ms MUSE SYSTEM QRS Duration 92 ms MUSE SYSTEM Q-T Interval 540 ms MUSE SYSTEM QTC Calculated (Bezet) 512 ms MUSE SYSTEM Calculated P Lamont 85 degrees MUSE SYSTEM Calculated R Lamont -44 degrees MUSE SYSTEM Calculated T Lamont -69 degrees MUSE SYSTEM INTERPRETATION Sinus bradycardia [...] Cornejo MD ECG ORDERABLES Performing Organization Address [facility] Co de Phone Number MUSE SYSTEM [...] troponin value can be found in the [facility] Laboratory Test Catalog Troponin - [facility] Laboratory Test Catalog Reference: Fourth [place] Definition of Myocardial Infarction. Journal of the [place] [employer] 2018;72:2355-4062 Blood 10/31/2023 11:3 7 AM EDT 10/31/2023 11:50 AM EDT Narrative Resulting Agency Comment Spec In Lab Rosa Cornejo MD CHEMISTRY ORDERABLE S [facility] [place] [address] * ECHO COMPLETE (10/31/2023 8:52 AM EDT) Anatomical Region Laterality Modality Cardiac Other 10/31/2023 7:57 AM EDT Narrative 10/31/2023 9:45 AM EDT [address] [place] [address] ? Echocardiogram Report Name: ADIN SANTOS ? Study Date: 10/31/2023 07:57 AMBP: 106/76 mmHg ? Patient Location: [facility] 0[facility] A : 1940 ? Height: 163 cm ? Account: [id number] Age: 83 yrs ? Weight: 76 kg Gender: Female ?BSA: 1.8 m2 Ordering Physician: ROSA DEWEY Referring Physician: OMAIRA GIRON Performed By: HAFSA Carmichael Reason For Study: STEMI Interpreting Fellow: Raymond Warren. Exam Location: [facility]. Interpretation Summary -The left ventricle is of [...] is no prior echocardiogram for comparison. Procedure Complete-22180. Satisfactory quality. There is sinus bradycardia. Left [...] Note Edgard Wang MD - 10/31/2023 [address] [place] [id number] Echocardiogram Report Name: TREY SANTOSMarco A Catherine Study Date: 407:57 AMBP: 106/76 mmHg Patient Location: [address] : 1940 Height: 163 cm Account: [id number] Age: 83 yrs Weight: 76 kg Gender: Female BSA: 1.8 m2 Ordering Physician: ROSA DEWEY Referring Physician: OMAIRA GIRON Performed By: HAFSA Carmichael Reason For Study: STEMI Interpreting Fellow: Raymond Warren. Exam Location: [facility]. Interpretation Summary -The left ventricle is of [...] is no prior echocardiogram for comparison. Procedure Complete-39921. Satisfactory quality. There is sinus bradycardia. Left [...] max chance: 75.9 cm/sec MV A max chnace: 94.6 cm/sec MV E/A: 0.80 MV dec [...] troponin value can be found in the [facility] Laboratory Test Catalog Troponin - [facility] Laboratory Test Catalog Reference: Fourth [place] Definition of Myocardial Infarction. Journal of the [place] College [employer] 2018;72:2333-9498 Blood 10/31/2023 8:51 AM EDT 10/31/2023 9:12 AM EDT Narrative Resulting Agency Comment Spec In Lab Rosa Cornejo MD CHEMISTRY ORDERABLE S Performing Organization Address City/State/[facility] Co de Phone Number [facility] [place] [address] * CARDIAC CATHETERIZATION (10/31/2023 8:10 AM EDT) Anatomical Region Laterality Modality Other Narrative 11/07/2023 9:42 AM EDT ?[facility] ? Cardiac Catheterization/Intervention Report ? Patient Name: Adin Santos M. ? Procedure Date: 10/30/2023 ? A #: [id number] ? Primary Physician: Rosa Dewey I ? Case #: [id number] ? File Name: [id number] ? Catheterization Order Number: [id number] ? [facility] ? Final Report [place], [place] ? Patient Name: ? Adin M. Goguen ?ID#: ?[id number] ? : ?1940 ? Procedure Date: ? October 30, 2023 ? Case #: ? [id number] ? Room: ? 5 ? Case Physician: [...] procedure was Emergent. The indication for ?the minilab operator visit is ACS less than or equal [...] A premounted 4.00 x 38 mm Andrea Orange (RADHA) was deployed ? with a maximum [...] dose administered prior to arrival in the minilab operator. ?Recommended anti-platelet/anti-thrombotic regimen: ?Continue aspirin 81 mg [...] Procedure Note Rosa Dewey MD - 12/05/2023 [facility] Cardiac Catheterization/Intervention Report Patient Name: Adin Santos Procedure Date: 10/30/2023 A #: [id number] Primary Physician: Rosa Dewey I Case #: [id number] File Name: [id number] Catheterization Order Number: [id number] [facility] FinalReport [place], [place] Patient Name: Adin Santos ID#:[id number] :1940 Procedure Date: October 30, 2023 Case [...] was designated as ASA Class III. The [facility] clinical frailtyscale is 5: Mildly Frail. Diagnostic Tests: Electrocardiography: EKG was assessed by ECG. EKG was Abnormal. EKG showed STDeviation >= 0.5 mm, other abnormality and dynamic EKG changes. Medications Prior to Procedure: Aspirin, Angiotensin II Receptor Rodrick, Beta Rodrick andStatin. Indications for Diagnostic Cath: The priority of the diagnostic procedure was Emergent. Theindication for the minilab operator visit is ACS less than or equal [...] 16atmospheres. A premounted 4.00 x 38 mm Milldale Orange (RADHA) wasdeployed with a maximum inflation pressure [...] dose administered prior to arrival in the minilab operator. Recommended anti-platelet/anti-thrombotic regimen: Continue aspirin 81 mg [...] * (ABNORMAL) Troponin (10/31/2023 4:21 AM EDT) [facility] Troponin-T, High Sensitivity 457(H) <=14 ng/L [facility] [...] troponin value can be found in the [facility] Laboratory Test Catalog Troponin - [facility] Test Catalog Reference: Fourth [place] Definition of Myocardial Infarction. Journal of the [place] College [employer] 2018;72:2804-5986 Blood 10/31/2023 4:21 AM EDT 10/31/2023 4:30 AM EDT Narrative Resulting Agency Comment Spec In Lab Rosa Cornejo MD CHEMISTRY ORDERABLE S Performing Organization Address City/State/[facility] Co de Phone Number [facility] [place] [address] * (ABNORMAL) Differential, Automated (10/31/2023 3:05 AM EDT) Neutrophil % 71.7 % [facility] Neutrophil Absolute 8.21(H) 1.70 - 6.10 x10(3)/mc L [facility] Lymph % 16.9 % [facility] Lymphocytes Abs 1.9 0.9 - 3.2 x10(3)/mc L [facility] Monocyte % 9.4 % [facility] Monocyte Abs 1.1(H) 0.3 - 0.9 x10(3)/mc L [facility] Eos % 1.3 % [facility] Eosinophils Abs 0.2 0.0 - 0.4 x10(3)/mc L [facility] Basophil % 0.4 % [facility] [...] MD HEMATOLOGY ORDERABLE S Performing Organization Address City/State/[facility] Co de Phone Number [facility] [place] [address] * (ABNORMAL) Hemogram (10/31/2023 3:05 AM EDT) [...] MD HEMATOLOGY ORDERABLE S Performing Organization Address [facility] Co de Phone Number [facility] [place] [address] * (ABNORMAL) APTT (10/31/2023 3:05 AM EDT) [...] MD HEMATOLOGY ORDERABL ES Performing Organization Address [facility] Co de Phone Number [facility] [place] [address] * (ABNORMAL) Prothrombin Time (10/31/2023 3:05 AM [...] MD HEMATOLOGY ORDERABL ES [facility] [place] [address] * (ABNORMAL) Differential, Automated (10/31/2023 1:37 AM EDT) Neutrophil % 71.1 % [facility] Neutrophil Absolute 7.53(H) 1.70 - 6.10 x10(3)/mc L [facility] Lymph % 18.0 % [facility] Lymphocytes Abs 1.9 0.9 - 3.2 x10(3)/mc L [facility] Monocyte % 8.7 % [facility] Monocyte Abs 0.9 0.3 - 0.9 x10(3)/mc L [facility] Eos % 1.6 % [facility] Eosinophils Abs 0.2 0.0 - 0.4 x10(3)/mc L [facility] Basophil % 0.4 % [facility] [...] MD HEMATOLOGY ORDERABLE S [facility] [place] [address] * (ABNORMAL) Hemogram (10/31/2023 1:37 AM EDT) [...] MD HEMATOLOGY ORDERABLE S [facility] [place] [address] * Phosphorus (10/31/2023 1:37 AM EDT) [facility] Phosphorus 3.2 2.5 - 4.5 mg/dL [facility] Blood 10/31/2023 1:37 AM EDT 10/31/2023 1:46 AM EDT Narrative Resulting Agency Comment Spec In Lab Rosa Cornejo MD CHEMISTRY ORDERABLE S Performing Organization Address City/[facility]/ZIP Co de Phone Number [facility] [place] [address] * Magnesium (10/31/2023 1:37 AM EDT) [facility] Magnesium 0.83 0.69 - 1.07 mmol/L [facility] Blood 10/31/2023 1:37 AM EDT 10/31/2023 1:46 AM EDT Narrative Resulting Agency Comment Spec In Lab Rosa Cornejo MD CHEMISTRY ORDERABLE S Performing Organization Address City/[facility]/ZIP Co de Phone Number [facility] [place] [address] * Basic Metabolic Panel (non-fasting) (10/31/2023 1:37 AM EDT) [facility] Glucose 114 65 - 199 mg/dL [facility] [...] MD CHEMISTRY ORDERABLE S [facility] [place] [address] * (ABNORMAL) Troponin (10/31/2023 1:37 AM EDT) [...] troponin value can be found in the [facility] Laboratory Test Catalog Troponin - [facility] Test Catalog Reference: Fourth [place] Definition of Myocardial Infarction. Journal of the [place] College [employer] 2018;72:8168-2824 Blood 10/31/2023 1:37 AM EDT 10/31/2023 1:46 AM EDT Narrative Resulting Agency Comment Spec In Lab Rosa Cornejo MD CHEMISTRY ORDERABLE S Performing Organization Address City/State/[facility] [place] [address] * EKG 12 Lead (10/31/2023 1:20 AM EDT) Ventricular rate 52 BPM MUSE SYSTEM Atrial Rate 52 BPM MUSE SYSTEM P-R Interval 224 ms MUSE SYSTEM QRS Duration 108 ms MUSE SYSTEM Q-T Interval 544 ms MUSE SYSTEM QTC Calculated (Bezet) 505 ms MUSE SYSTEM Calculated P Lamont 90 degrees MUSE SYSTEM Calculated R Lamont -57 degrees MUSE SYSTEM Calculated T Lamont -63 degrees MUSE SYSTEM INTERPRETATION Sinus bradycardia with 1st degree A-V block Pulmonary disease pattern Left anterior fascicular block Moderate voltage criteria for LVH, may be normal variant ( R in aVL , [place] product ) T wave abnormality, consider inferior ischemia T wave abnormality, consider anterolateral ischemia Prolonged QT Abnormal ECG When compared with ECG of 30-OCT-2023 22:40, No significant change was found Confirmed by Butch Soto MD (1960) on 11/01/2023 8:58:03 PM MUSE SYSTEM 10/31/2023 1:20 AM EDT 11/01/2023 8:58 PM EDT Rosa Cornejo MD ECG ORDERABLES Performing Organization Address [facility] de Phone Number MUSE SYSTEM * EKG 12 Lead (10/30/2023 10:40 PM EDT) Ventricular rate 55 BPM MUSE SYSTEM Atrial Rate 55 BPM MUSE SYSTEM P-R Interval 232 ms MUSE SYSTEM QRS Duration 102 ms MUSE SYSTEM Q-T Interval 520 ms MUSE SYSTEM QTC Calculated (Bezet) 497 ms MUSE SYSTEM Calculated P Lamont 75 degrees MUSE SYSTEM Calculated R Lamont -53 degrees MUSE SYSTEM Calculated T Lamont -57 degrees MUSE SYSTEM INTERPRETATION Sinus bradycardia with 1st degree A-V block Left anterior fascicular block Moderate voltage criteria for LVH, may be normal variant ( R in aVL , [place] product ) T wave abnormality, consider inferior ischemia T wave abnormality, consider anterolateral ischemia Prolonged QT Abnormal ECG When compared with ECG of 30-OCT-2023 20:21, Incomplete right bundle branch block is no longer Present Confirmed by Charles COFFMAN, Butch (1960) on 11/01/2023 8:58:01 PM MUSE SYSTEM 10/30/2023 10:4 0 PM EDT 11/01/2023 8:58 PM EDT Rosa Cornejo MD ECG ORDERABLES Performing Organization Address [facility] Phone Number MUSE SYSTEM * XR Chest One View (10/30/2023 10:10 PM EDT) WORKSTATION ID [id number] RAD Anatomical Region Laterality Modality Chest N/A Digital Radiogra phy Impressions 10/30/2023 10:32 PM EDT 1. ??Examination limited by low lung volumes. 2. ??Findings suggesting pulmonary vascular congestion with possible mild interstitial edema. 3. ??Known ascending aortic aneurysm, as seen on recent CT. 4. ??Nonspecific widening mediastinum. This can be secondary to magnification from portable technique and low lung volumes. Findings similar to plastic parts designer radiograph from CT 10/30/2023. Thank you for [...] and low lung volumes. Findings similar to plastic parts designer radiograph from CT 10/30/2023. Thank you for [...] Green Tube HOLD (10/30/2023 10:05 PM EDT) [facility] Green Hold Sample in lab. [facility] Blood Venous Draw / Unknown 10/30/2023 10:05 PM EDT 10/30/2023 10:13 PM EDT Qamar Gallardo MD CHEMISTRY ORDERABLES [facility] [place] [address] * (ABNORMAL) Differential, Automated (10/30/2023 10:05 PM EDT) [facility] Neutrophil % 76.6 % [facility] Neutrophil Absolute 6.94(H) 1.70 - 6.10 x10(3)/mc L [facility] Lymph % 15.4 % [facility] Lymphocytes Abs 1.4 0.9 - 3.2 x10(3)/mc L [facility] Monocyte % 6.1 % [facility] Monocyte Abs 0.6 0.3 - 0.9 x10(3)/mc L [facility] Eos % 1.1 % [facility] Eosinophils Abs 0.1 0.0 - 0.4 x10(3)/ L [facility] Basophil % 0.6 % [facility] [...] MD HEMATOLOGY ORDERABLE S [facility] [place] [address] * (ABNORMAL) Hemogram (10/30/2023 10:05 PM EDT) [...] HEMATOLOGY ORDERABLE S Performing Organization Address City/[facility]/ZIP Co de Phone Number [facility] [place] [address] * Hemoglobin A1c (10/30/2023 10:05 PM EDT) [...] Mellitus, Diabetes Care 2013; 36: Suppl. 1, G43-50 Estimated Average Glucose See note mg/dL [facility] Comment: Estimated Average Glucose not appropriate for patients over 70 years of age. Blood 10/30/2023 10:0 5 PM EDT 10/30/2023 10:12 PM EDT Narrative Resulting Agency Comment Spec In Lab Rosa Cornejo MD CHEMISTRY ORDERABLE S Performing Organization Address City/[facility]/ZIP Co de Phone Number [facility] [place] [address] * Lipid Panel (Reflex Direct LDL) (10/30/2023 10:05 PM EDT) Cholesterol, Total 218 mg/[facility] Comment: Desirable: ? <200 mg/dL Borderline High: 200-239 mg/dL Higher: ?>of=898 mg/dL Triglyceride 46 mg/dL [facility] Comment: Normal: ?<150 mg/dL Borderline High: 150-199 mg/dL High: ?200-499 mg/dL Very High: ? >rm=315 mg/dL HDL Cholesterol 64 mg/dL [facility] Comment: Females: High Risk: <50 mg/dL Males: High Risk: <40 mg/dL LDL Cholesterol 145 mg/dL [facility] Comment: Desirable: ? <100 mg/dL Above Desirable: 100-129 mg/dL Borderline High: 130-159 mg/dL High: ?160-189 mg/dL Very High: ? >xx=036 mg/dL Lipid Interpretation See Note [facility] [...] ACC/AHA Guidelines (most recently Feliciano et al. [facility] 03/23/22): For individuals with atherosclerotic cardiovascular disease (ASCVD)or LDL >hb=860 mg/dL, use a high-intensity statin (40-80 mg [...] MD CHEMISTRY ORDERABLE S [facility] [place] [address] * TSH Williams (10/30/2023 10:05 PM EDT) Thyroid Stimulating Hormone 3.35 0.27 - 4.20 mcIU/mL [facility] Comment: Reference Interval (mcIU/mL): Females: ??First Trimester: 0.23-3.88 ??Second Trimester: 0.22-3.90 ??Third Trimester: 0.44-4.66 Blood 10/30/2023 10:0 5 PM EDT 10/30/2023 10:12 PM EDT Narrative Resulting Agency Comment Spec In Lab Rosa Cornejo MD CHEMISTRY ORDERABLE S [facility] [place] [address] * pro-Brain Natriuretic Peptide (10/30/2023 10:05 PM EDT) NT-proBNP 375 <=449 pg/mL [facility] Blood 10/30/2023 10:0 5 PM EDT 10/30/2023 10:12 PM EDT Narrative Resulting Agency Comment Spec In Lab Rosa Cornejo MD CHEMISTRY ORDERABLE S Performing Organization Address [facility]/ZIP Co de Phone Number [facility] [place] [address] * (ABNORMAL) Comprehensive metabolic panel (non-fasting) (10/30/2023 [...] CHEMISTRY ORDERABLE S Performing Organization Address City/[facility]/ZIP Co de Phone Number [facility] [place] [address] * Phosphorus (10/30/2023 10:05 PM EDT) Phosphorus 3.3 2.5 - 4.5 mg/dL [facility] Blood 10/30/2023 10:0 5 PM EDT 10/30/2023 10:12 PM EDT Narrative Resulting Agency Comment Spec In Lab Rosa Cornejo MD CHEMISTRY ORDERABLE S Performing Organization Address City/[facility]/ZIP Co de Phone Number [facility] [place] [address] * Magnesium (10/30/2023 10:05 PM EDT) Magnesium 0.86 0.69 - 1.07 mmol/L [facility] Blood 10/30/2023 10:0 5 PM EDT 10/30/2023 10:12 PM EDT Narrative Resulting Agency Comment Spec In Lab Rosa Cornejo MD CHEMISTRY ORDERABLE S [facility] [place] [address] * (ABNORMAL) Troponin (10/30/2023 10:05 PM EDT) [...] troponin value can be found in the [facility] Laboratory Test Catalog Troponin - [facility] Laboratory Test Catalog Reference: Fourth [place] Definition of Myocardial Infarction. Journal of the [place] [employer] 2018;72:6522-9108 Blood 10/30/2023 10:0 5 PM EDT 10/30/2023 10:12 PM EDT Narrative Resulting Agency Comment Spec In Lab Rsoa Cornejo MD CHEMISTRY ORDERABLE S [facility] [place] [address] * EKG 12 Lead (10/30/2023 8:21 PM EDT) Ventricular rate 49 BPM MUSE SYSTEM Atrial Rate 49 BPM MUSE SYSTEM P-R Interval 230 ms MUSE SYSTEM QRS Duration 96 ms MUSE SYSTEM Q-T Interval 526 ms MUSE SYSTEM QTC Calculated (Bezet) 475 ms MUSE SYSTEM Calculated P Lamont 98 degrees MUSE SYSTEM Calculated R Lamont -48 degrees MUSE SYSTEM Calculated T Lamont -51 degrees MUSE SYSTEM INTERPRETATION Sinus bradycardia [...] Cornejo MD ECG ORDERABLES Performing Organization Address City/[facility] Co de Phone Number MUSE SYSTEM [...] Shipley RN) [phone] (Given - Provider: Danica Shpiley RN)[phone] (Given - Provider: Lucretia Thurman, TANESHA) [...] documented as of this encounter Care Teams Field Sales Associate Relationship Specialty Start Date End Date Rosie Mathews MD [address] [place] [id number] PCP - General Family Medicine 11/25/17 11/23/23 documented as of this encounter
--- OUTSIDE RECORDS SUMMARY | 2024-03-12 10:13 | XMS_ITS | Encounter Summary ---
Author Organization [facility] Address [facility] [place] [address] Care Team Providers Care Sports Marketer Name Role Phone Rosie Mathews MD Primary Care Provider [phone] Encounter Details Date Type Department Care Team (Late st Contact Info) Description 10/30/2023 5:00 PM EDT Ancillary Procedure Radiology Library at [facility] [place] [address] Izaiah Meyer MD [facility] [place] [address] Social History Tobacco Use Types Packs/Day Years Used Date Smoking Tobacco: Former Smokeless Tobacco: Never Alcohol Use Standard Drinks/Week Comments Not Currently 0 (1 standard drink = 0.6 oz pur e alcohol) [facility] Inpatient Questions Answer Date Recorded [...] AM EDT Office Visit Cardiology at [address] [place] [id number] Izaiah Meyer MD [facility] [place] [address] documented as of this encounter Procedures Procedure Name Priority Date/Time Associated Diagnosis Comments FILM LIBRARY STORAGE ONLY CT CHEST Routine 10/30/2023 4:59 PM EDT documented in this encounter Results * Film Library- Storage Only CT Chest (10/30/2023 4:59 PM EDT) Narrative [facility] - 10/30/2023 4:59 PM EDT This exam is auto-finalizing. It's purpose is for storage only. Izaiah Meyer MD IMG FILM LIBRARY ORD ERABLES Performing Organization Address City/State/[facility] Co de Phone Number [place], [place] documented in this encounter Visit Diagnoses Not on filedocumented in this encounter Care Teams Sports Marketer Relationship Specialty Start Date End Date Rosie Mathews MD [address] [place] [address] PCP - General Family Medicine 11/25/17 11/23/23 documented as of this encounter
--- OUTSIDE RECORDS SUMMARY | 2024-03-12 10:13 | XMS_ITS | Encounter Summary ---
Author Organization [facility] [place] [address] Care Team Providers Care Printer Repair Technician Name Role Phone Rosie Mathews MD Primary Care Provider [phone] Reason for Visit * Auth/Cert (Routine) Specialty Diagnoses / Procedures Referred By Contac t Referred To Contact Diagnoses Unstable angina Procedures OR [facility] Referral ID Status Reason Start Date Expiration Date Visits Re quested Visits Authorized [id number] 1 1 Encounter Details Date Type Department Care Team (Latest Contact Info) Description 10/30/2023 5:00 PM EDT - 10/30/2023 5:10 PM EDT Hospital [place] [id number] Rosa Menjivar MD [facility] [place] [address] Discharge Disposition: Home Social History Tobacco Use Types Packs/Day Years Used Date Smoking Tobacco: Former Smokeless Tobacco: Never Alcohol Use Standard Drinks/Week Comments Not Currently 0 (1 standard drink = 0.6 oz pur e alcohol) [facility] Inpatient Questions Answer Date Recorded Does [...] AM EDT Office Visit Cardiology at [address] [place] [address] Izaiah Meyer MD [facility] [place] [address] documented as of this encounter Visit Diagnoses Not on filedocumented in this encounter Care Teams Printer Repair Technician Relationship Specialty Start Date End Date Rosie Mathews MD [address] [place] [address] PCP - General Family Medicine 11/25/17 11/23/23 documented as of this encounter
--- OUTSIDE RECORDS SUMMARY | 2024-03-12 10:13 | XMS_ITS | Encounter Summary ---
Author Organization [facility] Address [facility] [place] [address] Care Team Providers Care Industrial Chemistry Teacher Name Role Phone Rosie Mathews MD Primary Care Provider [phone] Encounter Details Date Type Department Care Team (Late st Contact Info) Description 10/30/2023 [place] [address] Jose Lee MD [facility] [place] [address] Social History Tobacco Use Types Packs/Day Years [...] in the patient condition. Jose Lee MD [employer] Maker documented in this encounter Plan of Treatment Upcoming Encounters Date Type Department Care Team (Late st Contact Info) Description 03/29/2024 11:20 AM EDT Office Visit Cardiology at [address] [place] [address] Izaiah Meyer MD [facility] [place] [address] documented as of this encounter Visit Diagnoses Not on filedocumented in this encounter Care Teams Industrial Chemistry Teacher Relationship Specialty Start Date End Date Rosie Mathews MD [address] [place] [address] PCP - General Family Medicine 11/25/17 11/23/23 documented as of this encounter
--- OUTSIDE RECORDS SUMMARY | 2024-03-12 10:13 | XMS_ITS | Encounter Summary ---
Author Organization [facility] [place] [address] Care Team Providers Care Obstetrical Anesthesiologist Name Role Phone Rosie Mathews MD Primary Care Provider [phone] Reason for Visit * Auth/Cert (Routine) Specialty Diagnoses / Procedures Referred By Contbruce t Referred To Contact Diagnoses Unstable angina Chest pain NSTEMI Procedures CARDIAC CATHETERIZATION Rosa Dewey MD [facility] [place] [address] [facility] Referral ID Status Reason Start Date Expiration Date Visits Re quested Visits Authorized [id number] 1 1 Encounter Details Date Type Department Care Team (Late st Contact Info) Description 11/01/2023 3:33 PM EDT - 11/01/2023 5:03 PM EDT Surgery [place] [address] Rosa Dewey MD [facility] [address] [place], [place] [id number] CARDIAC CATHETERIZATION Social History Tobacco Use Types Packs/Day Years Used Date Smoking Tobacco: Former Smokeless Tobacco: Never Alcohol Use Standard Drinks/Week Comments Not Currently 0 (1 standard drink = 0.6 oz pur e alcohol) [facility] Utilities Answer Date Recorded [...] on Tuesday when she was walking to [facility] and experienced bilateral arm heaviness while walking with no other symptoms. Then, this afternoon shereports developing bilateral achy shoulder pain and nonradiating substernal left-sided chest pressure that was 7/10 in severity after coming home from [facility]. The patient denies any associated fevers, chills, [...] the patient was taken directly to the Retirement Specialist. Two lesions were discovered: one in the prox RCA (felt to almost be a BANK SECRECY ACT OFFICER but they were able to wire, balloon, [...] dose administered prior to arrival in the seed analysis laboratory assistant. Recommended anti-platelet/anti-thrombotic regimen: Continue aspirin 81 mg [...] and low lung volumes. Findings similar to pile driving nozzleman radiograph from CT 10/30/2023. Pending Studies and [...] 10:40 AM Izaiah Meyer MD Cardiology at [place] Arrive at: [facility] [address] [phone] Future Orders Complete By Expires Referral to Cardiac Rehab [[id number] Custom] As directed Process Instructions: If no [...] Santos for admission to Home Health. [address] [facility] [address] (home) Date of : 1940 Inpatient DOCUMENTATION FOR VNA SERVICES (INCLUDING THOSE PATIENTS WITH MEDICARE COVERAGE REQUIRING HOME VNA SERVICES AND/OR HOSPICE SERVICES) PATIENT'S LOCATION: Adin Santos [address] [facility] [address] (home) Cell: Telephone Information: Cigar Head Pegger's Name: self In discussion with the attending physician, it is certified that this patient is under their care and that they, or a Nurse Practitioner, Clinical Nurse specialist or Physician Histology Tech who is working directly with them, had [...] regarding health issues HOME HEALTH CARE AGENCY: [facility] [address] [address] START OF CARE: within 24-48 hours of [...] Rosie Mathews MD [address] / [facility] [address] . All A agencies [...] MD / Dr. Masood Pierson [address] [place] [address] 11/09/23 1:55 PM arrival for 2:10 PM appointment Corporate Counsel: Izaiah Meyer MD [address] [place] [address] , 11/24/2023 10:40 AM Your Inpatient Medical Team at [facility] Name(s) of your inpatient provider(s): Attending physician: Rosa Hugo MD Resident physicians: Emile Robles MD; Elmer Tamez MD If you have non-emergent questions, prior to your follow-up visit call: Tuesday-Tuesday between the hours of 8AM-5PM please call the Cardiology Clinic [phone] to speak with a nurse. All other hours please call the Hospital Soil Sampler [phone] and ask to speak to the third mate on-call. Your Primary Care Provider Rosie Mathews MD [phone] For questions regarding this document or issues relating to this hospitalization on the Medical Service, please contact your inpatient physician through the [facility] Soil Sampler . Issues afterhours and on weekends will be handled by the Corporate Counsel staff on-call. Associated attestation - Rosa Hugo [...] MD / Dr. Masood Pierson [address] [place] [address] 11/09/23 1:55 PM arrival for 2:10 PM appointment Corporate Counsel: Izaiah Meyer MD [address] [place] [address] , 11/24/2023 10:40 AM Your Inpatient Medical Team at [facility] Name(s) of your inpatient provider(s): Attending physician: Rosa Hugo MD Resident physicians: Emile Robles MD; Elmer Tamez MD If you have non-emergent questions, prior to your follow-up visit call: Tuesday-Tuesday between the hours of 8AM-5PM please call the Cardiology Clinic [phone] to speak with a nurse. All other hours please call the Hospital Soil Sampler [phone] and ask to speak to the third mate on-call. Your Primary Care Provider Rosie Mathews MD [phone] documented in this encounter Medications at Time [...] Resident on Cardiology Service Cardiology S1 (Pager [phone]) Note written in conjunction with Claudio Perla [facility] Medical Student, MS3 Associated attestation - Rosa [...] Nirmala Webb - 11/01/2023 11:25 AM EDT Director Experimental Medicine Encounter Note Patient Name: Adin Santos : [id number] MR#: [id number] Admit Date: 10/30/2023 5:11 PM Hospital Day 2 days Narrative: Self initiated visit to patient for Spiritual support in a regular unit rounds. Assessment: Patient is in the bathroom at the time of this visit. Not a good time for Space Engineer visit. Intervention and Outcome: An attempted [...] and low lung volumes. Findings similar to pile driving nozzleman radiograph from CT 10/30/2023. Scheduled Medications: [AUG [...] Resident on Cardiology Service Cardiology S1 (Pager [phone]) Note written in conjunction with Claudio Perla [facility] Medical Student, MS3 Associated attestation - Rosa [...] the proximal RCA (initially thought it was BANK SECRECY ACT OFFICER but they were ableto wire, balloon and [...] and low lung volumes. Findings similar to pile driving nozzleman radiograph from CT 10/30/2023. TTE (10/30): Interpretation [...] Resident on Cardiology Service Cardiology S1 (Pager [phone]) Note written in conjunction with Claudio Perla [facility] Medical Student, MS3 Associated attestation - Rosa [...] PCP: Rosie Mathews MD PCP phone number: [phone] Date of Admission: 10/30/2023 ( Hospital Day [...] on Tuesday when she was walking to [facility] and experienced bilateral arm heaviness while walking with no other symptoms. Then, this afternoon shereports developing bilateral achy shoulder pain and nonradiating substernal left-sided chest pressure that was 7/10 in severity after coming home from [facility]. The patient denies any associated fevers, chills, [...] the patient was taken directly to the Retirement Specialist. 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 Findings similar to pile driving nozzleman radiograph from CT 10/30/2023. Assessment & Plan: [...] information for follow-up Home Health & Hospice, [place] [address] TANESHA BOYCE confirmed with [facility] that they will see the [...] N/A Patient is insured through: Primary Insurance: [employer] MANAGED MEDICARE Payor: [employer] MANAGED MEDICARE / Plan: [employer] MANAGED MEDICARE PPO / Product Type: *No [...] in the room. Electrolytes replaced, see MAR. cemetery laborer sites remained C/D/I with baseline ecchymosis unchanged. Pt complained of back pain, lidocaine patch given. Right IV infiltrated during infusion, patient is marked with sharpie, IV removed. See flowsheet for I+O's and safety rounding. Patient is able to make needs known and call capps within reach. PLAN MOVING FORWARD: Monitor Tele, control BP, monitor seed analysis laboratory assistant sites, D/C Planning INDIVIDUALIZED FALL PREVENTION INTERVENTIONS: [...] and above on RA. PT went to seed analysis laboratory assistant today. Left fem site oozed throughout shift, [...] MOVING FORWARD: Monitor Tele, control BP, monitor seed analysis laboratory assistant sites, D/C Planning INDIVIDUALIZED FALL PREVENTION INTERVENTIONS: [...] receiving care in [place] must abide by [place] law. The hierarchy [...] (i) The agent with financial power of upper caser or a conservator appointed in accordance with [...] has the electric, gas, oil, or water Loftware threatened to shut off services in your [...] toilet seat Home Address confirmed as: [address] [facility] [address] Social & Family Supports: All names listed below confirmed with patient as current and correct Extended Emergency Contact Information Primary Emergency Contact: Iris Downing Address: [address] [place], [place] [address] [place] [address] Mobile Relation: Child Secondary Emergency Contact: Karen More Address: [address] Mobile Relation: Child Current Care Provided by: [...] Specific Information: N/A Health/Prescription Coverage: Primary Insurance: saperatec MANAGED MEDICARE Payor: [employer] MANAGED MEDICARE / Plan: [employer] MANAGED MEDICARE PPO / Product Type: *No Product type* / Secondary Insurance: N/A Prescription Coverage: Yes Preferred Pharmacy: [id number] - [place], [place] - [address] [place] [id number] Status: Patient is a : No Primary Care Provider listed: Masood Pierson MD [phone] Patient/Caregiver Goals of Treatment: home when MR Potential Needs for Transition of Care: home health care Agency Referrals: Not Applicable I have met with the patient to: discuss discharge planning needs. provide the [facility], Office of Care Management letter from the Progressive Care Unit Registered Nurse pertaining to rehab referrals. provide a letter describing our affiliations within the [facility] and educate about their right to choose where referrals are sent. provide a list of Home Health Agencies / Durable Medical Equipment vendors which serve their preferred geographic area. provided patient with [facility] Star Quality Rating handout. They have requested referrals to: [facility] [address] [place] [address] Note routed to a Fiberglass Product Tester who will communicate referrals to facilities and [...] results. PO hydralazine added for BP control. cemetery laborer sites remain C/D/I, ecchymosis unchanged th roughout shift. See flowsheet for I+O's and safety rounding. Patient is able to make needs known and call capps within reach. PLAN MOVING FORWARD: Monitor Tele, control CP and BP, NPO at MD for cath, monitor seed analysis laboratory assistant sites, D/C Planning INDIVIDUALIZED FALL PREVENTION INTERVENTIONS: [...] AM EDT Office Visit Cardiology at [address] [place] [address] Izaiah Meyer MD [facility] [place] [address] Scheduled Referrals Name Type Priority Associated Diagnoses [...] [facility] Lymph % 15.2 % [facility] Lymphocytes Abs 1.3 0.9 - 3.2 x10(3)/mc L [facility] Monocyte % 16.9 % [facility] Monocyte Abs 1.4(H) 0.3 - 0.9 x10(3)/mc L [facility] Eos % 3.7 % ST [...] HEMATOLOGY ORDERABLE S [facility] [place] [address] * (ABNORMAL) Hemogram (11/03/2023 3:46 AM EDT) [...] Platelet 181 145 - 357 x10(3)/mc L [facility] RDW Standard Deviation 54.7(H) 37.0 - 46.0 fL [facility] [...] S Performing Organization Address City/[facility]/ZIP Co de Phone Number [facility] [place] [address] * Phosphorus (11/03/2023 3:46 AM EDT) Pathologist [facility] Phosphorus 3.2 2.5 - 4.5 mg/dL [facility] Comment:result rechecked-KS Blood 11/03/2023 3:46 AM EDT 11/03/2023 4:11 AM EDT Narrative Resulting Agency Comment Spec In Lab Rosa Cornejo MD CHEMISTRY ORDERABLE S Performing Organization Address [facility] Co de Phone Number [facility] [place] [address] * Magnesium (11/03/2023 3:46 AM EDT) [facility] Magnesium 0.90 0.69 - 1.07 mmol/L [facility] Blood 11/03/2023 3:46 AM EDT 11/03/2023 4:11 AM EDT Narrative Resulting Agency Comment Spec In Lab Rosa Cornejo MD CHEMISTRY ORDERABLE S Performing Organization Address [facility] Co de Phone Number [facility] [place] [address] * (ABNORMAL) Basic Metabolic Panel (non-fasting) (11/03/2023 3:46 AM EDT) Pathologist [facility] Glucose 105 65 - 199 mg/dL [facility] [...] CHEMISTRY ORDERABLE S [facility] [place] [address] * EKG 12 Lead (11/02/2023 12:44 PM EDT) Ventricular rate 83 BPM MUSE SYSTEM Atrial Rate 83 BPM MUSE SYSTEM P-R Interval 216 ms MUSE SYSTEM QRS Duration 90 ms MUSE SYSTEM Q-T Interval 384 ms MUSE SYSTEM QTC Calculated (Bezet) 451 ms MUSE SYSTEM Calculated P [place] 92 degrees MUSE SYSTEM Calculated R [place] -51 degrees MUSE SYSTEM Calculated T [place] -33 degrees MUSE SYSTEM INTERPRETATION Sinus rhythm [...] MD URINE ORDERABLES [facility] [place] [address] * (ABNORMAL) Urinalysis with reflex Culture (11/02/2023 [...] HOSPITAL LABOR[facility]ORY Leukocytes, Urine Dipstick Small(A) Negative [facility] Appearance, Urine Dipstick Cloudy(A) Clear [facility] Specific [place] Urine Automated >=1.030(A) 1.005 - 1.030 [facility] Color, Urine Dipstick Dark Yellow Yellow [facility] Reflex to Culture Yes [facility] Clean Catch Urine 11/02/2023 11:40 AM EDT 11/02/2023 12:04 PM EDT Narrative Resulting Agency Comment Spec In Lab Rosa Hugo MD URINE ORDERABLES [facility] [place] [address] * Respiratory Panel PCR (11/02/2023 10:15 AM EDT) Respiratory Panel Source EQUIPMENT MAINTENANCE TECH Swab [facility] Respiratory Panel PCR Negative Negative [facility] Comment: Respiratory Panels are performed on the [employer]romedica, using multiplexed PCR nucleic acid detection. ??Negative [...] performed using the [employer] Respiratory Panel 2.1 ([employer]) as authorized by the FDA issued Emergency [...] fact sheets at the following FDA website: https://www.fda.gov/medical-devices/uurznbyjprh-kqmmwrq-8822-bzplc-02-nhezktgho- use-a xuibpkrbehuzy-loghufx-dxbkxzx/xuxhv-hjuazcbfcfw-zsaj Human Metapneumovirus Not Detected Not Detected [facility] [...] GEN ERAL ORDERABLES [facility] [place] [address] * XR Chest One View (11/02/2023 2:51 AM EDT) WORKSTATION ID [id number] RAD Anatomical Region Laterality Modality Chest N/A [...] have questions please contact the health manager medicare marketing that requested your imaging first. ? Narrative [...] who have questions please contactthe health manager medicare marketing that requested your imaging first. Rosa Hugo MD IMG DX ORDERABLES * (ABNORMAL) Differential, Automated (11/02/2023 12:35 AM EDT) Neutrophil % 76.5 % [facility] Neutrophil Absolute 7.69(H) 1.70 - 6.10 x10(3)/mc L [facility] Lymph % 8.3 % [facility] Lymphocytes Abs 0.8(L) 0.9 - 3.2 x10(3)/mc L [facility] Monocyte % 12.9 % [facility] Monocyte Abs 1.3(H) 0.3 - 0.9 x10(3)/mc L [facility] Eos % 1.4 % ST [...] HEMATOLOGY ORDERABLE S [facility] [place] [address] * (ABNORMAL) Hemogram (11/02/2023 12:35 AM EDT) White Blood Cell 10.0(H) 4.0 - 9.5 x10(3)/ L [facility] [...] HEMATOLOGY ORDERABLE S [facility] [place] [address] * (ABNORMAL) Phosphorus (11/02/2023 12:35 AM EDT) Phosphorus 1.6(L) 2.5 - 4.5 mg/dL [facility] Blood 11/02/2023 12:3 5 AM EDT 11/02/2023 12:43 AM EDT Narrative Resulting Agency Comment Spec In Lab Rosa Cornejo MD CHEMISTRY ORDERABLE S Performing Organization Address City/[facility]/ZIP Co de Phone Number [facility] [place] [address] * Magnesium (11/02/2023 12:35 AM EDT) Magnesium 0.87 0.69 - 1.07 mmol/L [facility] Blood 11/02/2023 12:3 5 AM EDT 11/02/2023 12:43 AM EDT Narrative Resulting Agency Comment Spec In Lab Rosa Cornejo MD CHEMISTRY ORDERABLE S Performing Organization Address City/[facility]/ZIP Co de Phone Number [facility] [place] [address] * Basic Metabolic Panel (non-fasting) (11/02/2023 12:35 [...] CHEMISTRY ORDERABLE S [facility] [place] [address] * Blood culture (11/02/2023 12:35 AM EDT) Blood Culture No growth at 5 days. [facility] Blood 11/02/2023 12:3 5 AM EDT 11/02/2023 1:55 AM EDT Comment:#2 site ukn Narrative Resulting Agency Comment Spec In Lab Rosa Hugo MD MICROBIOLOGY - BLO OD ORDERABLES Performing Organization Address City/[facility]/ZIP Co de Phone Number [facility] [place] [address] * Blood culture (11/02/2023 12:15 AM EDT) Blood Culture No growth at 5 days. [facility] Blood 11/02/2023 12:1 5 AM EDT 11/02/2023 1:54 AM EDT Comment:#1site unk Narrative Resulting Agency Comment Spec In Lab Rosa Hugo MD MICROBIOLOGY - BLO OD ORDERABLES Performing Organization Address [facility] Co de Phone Number [facility] [place] [address] * EKG 12 Lead (11/01/2023 10:10 PM EDT) Ventricular rate 139 BPM MUSE SYSTEM Atrial Rate 139 BPM MUSE SYSTEM P-R Interval 168 ms MUSE SYSTEM QRS Duration 84 ms MUSE SYSTEM Q-T Interval 286 ms MUSE SYSTEM QTC Calculated (Bezet) 435 ms MUSE SYSTEM Calculated R [place] -59 degrees MUSE SYSTEM Calculated T [place] -27 degrees MUSE SYSTEM INTERPRETATION Mid-RP tachycardia, [...] interpretation Confirmed by fellow MD Bowen Ashley ([id number]) on 11/04/2023 7:57:50 AM Confirmed by MD Carrillo Danette ([id number]) on 11/04/2023 4:32:03 PM MUSE SYSTEM 11/01/2023 10:1 0 PM EDT 11/04/2023 4:32 PM EDT Rosa Cornejo MD ECG ORDERABLES MUSE SYSTEM * (ABNORMAL) Hemogram (11/01/2023 10:06 PM EDT) White Blood Cell 10.4(H) 4.0 - 9.5 x10(3)/mc L [facility] Red Blood Cell 4.11 4.00 - 5.21 x10(6)/mc L [facility] Hemoglobin 14.0 [...] Platelet 197 145 - 357 x10(3)/mc L [facility] RDW Standard Deviation 54.0(H) 37.0 - 46.0 [facility] RDW coefficient of variation 14.6(H) 11.5 - 14.1 % [facility] Mean Platelet Volume 11.2 7.6 - 12.9 [facility] NRBC% auto 0.0 % [facility] NRBC Absolute 0.000 0.000 - 0.000 x10(3)/mc L [facility] Blood 11/01/2023 10:0 6 PM EDT 11/01/2023 10:22 PM EDT Narrative Resulting Agency Comment Spec In Lab Rosa Hugo MD HEMATOLOGY ORDERAB LES [facility] [place] [id number] * POCT Glucose (11/01/2023 5:59 PM EDT) Glucose, POC 104 65 - 199 mg/dL [facility] Comment: Supplemental ranges: <140 mg/dL before meals <180 mg/dL all other times of the day Blood 11/01/2023 5:59 PM EDT 11/01/2023 5:59 PM EDT Rosa Hugo MD POINT OF CARE TEST ORDERABLES [facility] [place] [address] * POCT Glucose (11/01/2023 5:35 PM EDT) Glucose, POC 85 65 - 199 mg/dL [facility] Comment: Supplemental ranges: <140 mg/dL before meals <180 mg/dL all other times of the day Blood 11/01/2023 5:35 PM EDT 11/01/2023 5:35 PM EDT Rosa Hugo MD POINT OF CARE TEST ORDERABLES [facility] [place] [address] * EKG 12 Lead (11/01/2023 3:22 PM EDT) Ventricular rate 59 BPM MUSE SYSTEM Atrial Rate 59 BPM MUSE SYSTEM P-R Interval 220 ms MUSE SYSTEM QRS Duration 94 ms MUSE SYSTEM Q-T Interval 428 ms MUSE SYSTEM QTC Calculated (Bezet) 423 ms MUSE SYSTEM Calculated P [place] 76 degrees MUSE SYSTEM Calculated R [place] -50 degrees MUSE SYSTEM Calculated T [place] -59 degrees MUSE SYSTEM INTERPRETATION Sinus bradycardia with sinus arrhythmia with 1st degree A-V block Left anterior fascicular block Moderate voltage criteria for LVH, may be normal variant ( R in aVL , [place] product ) Cannot rule out Inferior infarct [...] Modality Other Narrative 11/02/2023 4:57 PM EDT ?[facility] ? Cardiac Catheterization/Intervention Report ? Patient Name: Adin Santos. ? Procedure Date: 11/01/2023 ? A #: [id number] ? Primary Physician: Rosa Dewey I ? Case #: [id number] ? File Name: [id number] ? Catheterization Order Number: [id number] ? [facility] ? Final Report [place], [place] ? Patient Name: ? Adin M. Goguen ?ID#: ?[id number] ? : ?1940 ? Procedure Date: ? [...] designated as ASA Class III. The [facility] clinical ?frailty scale is 4: Vulnerable. [...] procedure was Urgent. The indication for ?the seed analysis laboratory assistant visit is ACS greater than 24 hrs. [...] ??A premounted ? 3.50 x 15 mm [place] (RADHA) was deployed with a maximum ? [...] ? A premounted 3.50 x 15 mm [place] (RADHA) was deployed ? with a maximum [...] dose administered prior to arrival in the seed analysis laboratory assistant. ?Recommended anti-platelet/anti-thrombotic regimen: ?Continue aspirin 81 mg [...] Procedure Note Rosa Dewey MD - 12/12/2023 [facility] Cardiac Catheterization/Intervention Report Patient Name: Adin Santos Procedure Date: 11/01/2023 A #: [id number] Primary Physician: Rosa Dewey I Case #: [id number] File Name: [id number] Catheterization Order Number: [id number] [facility] FinalReport Patient Name: Adin Santos ID#:[id number] :1940 Procedure Date: November 01, 2023 Case [...] diagnostic procedure was Urgent. The indicationfor the seed analysis laboratory assistant visit is ACS greater than 24 hrs. [...] 14 atmospheres. Apremounted 3.50 x 15 mm [place] (RADHA) was deployed with amaximum inflation pressure [...] The lesion was predilated with a 3.00mm [id number] MM balloon with a maximum inflation pressure of 14atmospheres. A premounted 3.50 x 15 mm [place] (RADHA) wasdeployed with a maximum inflation pressure [...] dose administered prior to arrival in the seed analysis laboratory assistant. Recommended anti-platelet/anti-thrombotic regimen: Continue aspirin 81 mg [...] (11/01/2023 7:06 AM EDT) Pathologist [facility] Glucose, POC 93 65 - 199 mg/dL [facility] Comment: Supplemental ranges: <140 mg/dL before meals <180 mg/dL all other times of the day Blood 11/01/2023 7:06 AM EDT 11/01/2023 7:06 AM EDT Jean Laboy MD POINT OF CARE TEST O RDERABLES [facility] [place] [address] * (ABNORMAL) Differential, Automated (11/01/2023 3:09 AM EDT) Neutrophil % 63.9 % [facility] Neutrophil Absolute 5.54 1.70 - 6.10 x10(3)/mc L [facility] Lymph % 20.0 % [facility] Lymphocytes Abs 1.7 0.9 - 3.2 x10(3)/mc L [facility] Monocyte % 11.9 % [facility] Monocyte Abs 1.0(H) 0.3 - 0.9 x10(3)/ L [facility] Eos % 3.2 % ST [...] Immature Gran Absolute 0.04 0.00 - 0.04 x10(3)/[facility] Blood 11/01/2023 3:09 AM EDT 11/01/2023 3:29 AM EDT Narrative Resulting Agency Comment Spec In Lab Qamar Gallardo MD HEMATOLOGY ORDERABLE S [facility] [place] [address] * (ABNORMAL) Hemogram (11/01/2023 3:09 AM EDT) White Blood Cell 8.7 4.0 - 9.5 x10(3)/ L [facility] Red Blood Cell 3.72(L) 4.00 - 5.21 x10(6)/[facility] Hemoglobin 12.5 11.7 - 15.5 g/dL [...] HEMATOLOGY ORDERABLE S [facility] [place] [address] * Phosphorus (11/01/2023 3:09 AM EDT) Phosphorus 2.5 2.5 - 4.5 mg/dL [facility] Blood 11/01/2023 3:09 AM EDT 11/01/2023 3:29 AM EDT Narrative Resulting Agency Comment Spec In Lab Rosa Cornejo MD CHEMISTRY ORDERABLE S [facility] [place] [address] * Magnesium (11/01/2023 3:09 AM EDT) Magnesium 0.82 0.69 - 1.07 mmol/L [facility] Blood 11/01/2023 3:09 AM EDT 11/01/2023 3:29 AM EDT Narrative Resulting Agency Comment Spec In Lab Rosa Cornejo MD CHEMISTRY ORDERABLE S [facility] [place] [address] * (ABNORMAL) Basic Metabolic Panel (non-fasting) (11/01/2023 [...] S Performing Organization Address City/[facility]/ZIP Co de Phone Number [facility] [place] [address] * (ABNORMAL) Troponin (10/31/2023 2:46 PM EDT) [...] can be found in the [facility] Test Catalog Troponin - [facility] Test Catalog Reference: Fourth Brokaw Definition of Myocardial Infarction. Journal of the [place] [employer] 2018;72:0116-1460 Blood 10/31/2023 2:46 PM EDT 10/31/2023 2:55 PM EDT Narrative Resulting Agency Comment Spec In Lab Jean Laboy MD CHEMISTRY ORDERABLES Performing Organization Address City/[facility]/ZIP Co de Phone Number [facility] [place] [address] * EKG 12 Lead (10/31/2023 1:07 PM EDT) Ventricular rate 54 BPM MUSE SYSTEM Atrial Rate 54 BPM MUSE SYSTEM P-R Interval 218 ms MUSE SYSTEM QRS Duration 92 ms MUSE SYSTEM Q-T Interval 540 ms MUSE SYSTEM QTC Calculated (Bezet) 512 ms MUSE SYSTEM Calculated P [place] 85 degrees MUSE SYSTEM Calculated R [place] -44 degrees MUSE SYSTEM Calculated T [place] -69 degrees MUSE SYSTEM INTERPRETATION Sinus bradycardia [...] PM EDT 10/31/2023 2:28 PM EDT Rosa Corneoj MD ECG ORDERABLES MUSE SYSTEM * (ABNORMAL) Troponin (10/31/2023 11:37 AM EDT) Pathologist [facility] Troponin-T, High Sensitivity 580(H) <=14 ng/L [facility] [...] can be found in the [facility] Test Catalog Troponin - [facility] Test Catalog Reference: Fourth Brokaw Definition of Myocardial Infarction. Journal of the [place] College [employer]iology 2018;72:5036-7666 Blood 10/31/2023 11:3 7 AM EDT 10/31/2023 11:50 AM EDT Narrative Resulting Agency Comment Spec In Lab Rosa Cornejo MD CHEMISTRY ORDERABLE S [facility] [place] [address] * ECHO COMPLETE (10/31/2023 8:52 AM EDT) Anatomical Region Laterality Modality Cardiac Other 10/31/2023 7:57 AM EDT Narrative 10/31/2023 9:45 AM EDT [address] [place] [address] ? Echocardiogram Report Name: TOM ADIN Dorene ? Study Date: 10/31/2023 07:57 AMBP: 106/76 mmHg ? Patient Location: [address] : 1940 ? Height: 163 cm ? Account: [id number] Age: 83 yrs ? Weight: 76 kg [...] is no prior echocardiogram for comparison. Procedure Complete-37805. Satisfactory quality. There is sinus bradycardia. Left [...] Note Edgard Wang MD - 10/31/2023 [address] [place] [address] Echocardiogram Report Name: ADIN SANTOS Study Date: 407:57 AMBP: 106/76 mmHg Patient Location: [address] : 1940 Height: 163 cm Account: [id number] Age: 83 yrs Weight: 76 kg Gender: Female BSA: 1.8 m2 Ordering Physician: ROSA DEWEY Referring Physician: OMAIRA GIRON Performed By: HAFSA Carmichael Reason For Study: STEMI Interpreting Fellow: Raymond Warern. Exam Location: [facility]. Interpretation [...] is no prior echocardiogram for comparison. Procedure Complete-97723. Satisfactory quality. There is sinus bradycardia. Left [...] * (ABNORMAL) Troponin (10/31/2023 8:51 AM EDT) [facility] Troponin-T, High Sensitivity 571(H) <=14 ng/L [facility] [...] can be found in the [facility] Test Catalog Troponin - [facility] Test Catalog Reference: Fourth Brokaw Definition of Myocardial Infarction. Journal of the [place] [employer]iology 2018;72:3782-6596 Blood 10/31/2023 8:51 AM EDT 10/31/2023 9:12 AM EDT Narrative Resulting Agency Comment Spec In Lab Rosa Cornejo MD CHEMISTRY ORDERABLE S Performing Organization Address [facility] Co de Phone Number [facility] [place] [address] * CARDIAC CATHETERIZATION (10/31/2023 8:10 AM EDT) Anatomical Region Laterality Modality Other Narrative 11/07/2023 9:42 AM EDT ?[facility] ? Cardiac Catheterization/Intervention Report ? Patient Name: Adin Santos ? Procedure Date: 10/30/2023 ? A #: [id number] ? Primary Physician: Rosa Dewey I ? Case #: [id number] ? File Name: [id number] ? Catheterization Order Number: [id number] ? [facility] ? Final Report [place], [place] ? Patient Name: ? Adin M. Goguen ?ID#: ?[id number] ? : ?1940 ? Procedure Date: ? [...] designated as ASA Class III. The [facility] clinical frailty scale ?is 5: Mildly [...] procedure was Emergent. The indication for ?the seed analysis laboratory assistant visit is ACS less than or equal [...] A premounted 4.00 x 38 mm Andrea Gilpin (RADHA) was deployed ? with a maximum [...] dose administered prior to arrival in the seed analysis laboratory assistant. ?Recommended anti-platelet/anti-thrombotic regimen: ?Continue aspirin 81 mg [...] Procedure Note Rosa Dewey MD - 12/05/2023 [facility] Cardiac Catheterization/Intervention Report Patient Name: Adin Santos Procedure Date: 10/30/2023 A #: [id number] Primary Physician: Rosa Dewey I Case #: [id number] File Name: [id number] Catheterization Order Number: [id number] [facility] FinalReport Patient Name: Adin Santos ID#:[id number] :1940 Procedure Date: October 30, 2023 Case [...] designated as ASA Class III. The [facility] clinical frailtyscale is 5: Mildly Frail. Diagnostic Tests: Electrocardiography: EKG was assessed by ECG. EKG was Abnormal. EKG showed STDeviation >= 0.5 mm, other abnormality and dynamic EKG changes. Medications Prior to Procedure: Aspirin, Angiotensin II Receptor Rodrick, Beta Rodrick andStatin. Indications for Diagnostic Cath: The priority of the diagnostic procedure was Emergent. Theindication for the seed analysis laboratory assistant visit is ACS less than or equal [...] The priority for the procedure was Emergent.The [facility] indication for the procedure was STEMI-Immediate [...] A premounted 4.00 x 38 mm Andrea Gilpin (RADHA) wasdeployed with a maximum inflation pressure [...] dose administered prior to arrival in the seed analysis laboratory assistant. Recommended anti-platelet/anti-thrombotic regimen: Continue aspirin 81 mg [...] [place] Troponin-T, High Sensitivity 457(H) <=14 ng/L [facility] [...] can be found in the [facility] Test Catalog Troponin - [facility] Test Catalog Reference: Fourth Brokaw Definition of Myocardial Infarction. Journal of the [place] College [employer]iology 2018;72:0275-5005 Blood 10/31/2023 4:21 AM EDT 10/31/2023 4:30 AM EDT Narrative Resulting Agency Comment Spec In Lab Rosa Cornejo MD CHEMISTRY ORDERABLE S Performing Organization Address City/State/[facility] Co de Phone Number [facility] [place] [address] * (ABNORMAL) Differential, Automated (10/31/2023 3:05 AM EDT) Neutrophil % 71.7 % [facility] Neutrophil Absolute 8.21(H) 1.70 - 6.10 x10(3)/mc L [facility] Lymph % 16.9 % [facility] Lymphocytes Abs 1.9 0.9 - 3.2 x10(3)/mc L [facility] Monocyte % 9.4 % [facility] Monocyte Abs 1.1(H) 0.3 - 0.9 x10(3)/mc L [facility] Eos % 1.3 % ST [...] HEMATOLOGY ORDERABLE S [facility] [place] [address] * (ABNORMAL) Hemogram (10/31/2023 3:05 AM EDT) White Blood Cell 11.5(H) 4.0 - 9.5 x10(3)/ L [facility] Red Blood Cell 3.75(L) 4.00 - 5.21 x10(6)/mc L [facility] Hemoglobin 12.6 [...] Platelet 206 145 - 357 x10(3)/mc L [facility] RDW Standard Deviation 53.4(H) 37.0 - 46.0 fL [facility] RDW coefficient of variation 14.6(H) 11.5 - 14.1 % [facility] Mean Platelet Volume 11.1 7.6 - 12.9 fL [facility] NRBC% auto 0.0 % [facility] NRBC Absolute 0.000 0.000 - 0.000 x10(3)/mc L [facility] Blood 10/31/2023 3:05 AM EDT 10/31/2023 3:13 AM EDT Narrative Resulting Agency Comment Spec In Lab Qamar Gallardo MD HEMATOLOGY ORDERABLE S Performing Organization Address [facility] de Phone Number [facility] [place] [address] * (ABNORMAL) APTT (10/31/2023 3:05 AM EDT) [...] MD HEMATOLOGY ORDERABL ES Performing Organization Address [facility] de Phone Number [facility] [place] [address] * (ABNORMAL) Prothrombin Time (10/31/2023 3:05 AM [...] HEMATOLOGY ORDERABL ES [facility] [place] [address] * (ABNORMAL) Differential, Automated (10/31/2023 1:37 AM EDT) Neutrophil % 71.1 % [facility] Neutrophil Absolute 7.53(H) 1.70 - 6.10 x10(3)/mc L [facility] Lymph % 18.0 % [facility] Lymphocytes Abs 1.9 0.9 - 3.2 x10(3)/ L [facility] Monocyte % 8.7 % [facility] Monocyte Abs 0.9 0.3 - 0.9 x10(3)/mc L [facility] Eos % 1.6 % ST [...] HEMATOLOGY ORDERABLE S [facility] [place] [address] * (ABNORMAL) Hemogram (10/31/2023 1:37 AM EDT) [...] HEMATOLOGY ORDERABLE S [facility] [place] [address] * Phosphorus (10/31/2023 1:37 AM EDT) Phosphorus 3.2 2.5 - 4.5 mg/dL [facility] Blood 10/31/2023 1:37 AM EDT 10/31/2023 1:46 AM EDT Narrative Resulting Agency Comment Spec In Lab Rosa Cornejo MD CHEMISTRY ORDERABLE S Performing Organization Address City/[facility]/ZIP Co de Phone Number [facility] [place] [address] * Magnesium (10/31/2023 1:37 AM EDT) Magnesium 0.83 0.69 - 1.07 mmol/L [facility] Blood 10/31/2023 1:37 AM EDT 10/31/2023 1:46 AM EDT Narrative Resulting Agency Comment Spec In Lab Rosa Cornejo MD CHEMISTRY ORDERABLE S Performing Organization Address City/[facility]/ZIP Co de Phone Number [facility] [place] [address] * Basic Metabolic Panel (non-fasting) (10/31/2023 1:37 AM EDT) Glucose 114 65 - 199 mg/dL [facility] [...] CHEMISTRY ORDERABLE S [facility] [place] [address] * (ABNORMAL) Troponin (10/31/2023 1:37 AM EDT) [...] can be found in the [facility] Test Catalog Troponin - [facility] Test Catalog Reference: Fourth Brokaw Definition of Myocardial Infarction. Journal of the [place] College [employer]iology 2018;72:5437-7492 Blood 10/31/2023 1:37 AM EDT 10/31/2023 1:46 AM EDT Narrative Resulting Agency Comment Spec In Lab Rosa Cornejo MD CHEMISTRY ORDERABLE S Performing Organization Address City/[facility]/[place] [address] * EKG 12 Lead (10/31/2023 1:20 AM EDT) Ventricular rate 52 BPM MUSE SYSTEM Atrial Rate 52 BPM MUSE SYSTEM P-R Interval 224 ms MUSE SYSTEM QRS Duration 108 ms MUSE SYSTEM Q-T Interval 544 ms MUSE SYSTEM QTC Calculated (Bezet) 505 ms MUSE SYSTEM Calculated P [place] 90 degrees MUSE SYSTEM Calculated R [place] -57 degrees MUSE SYSTEM Calculated T [place] -63 degrees MUSE SYSTEM INTERPRETATION Sinus bradycardia [...] (Bezet) 497 ms MUSE SYSTEM Calculated P [place] 75 degrees MUSE SYSTEM Calculated R [place] -53 degrees MUSE SYSTEM Calculated T [place] -57 degrees MUSE SYSTEM INTERPRETATION Sinus bradycardia with 1st degree A-V block Left anterior fascicular block Moderate voltage criteria for LVH, may be normal variant ( R in aVL , [place] product ) T wave abnormality, consider inferior [...] View (10/30/2023 10:10 PM EDT) WORKSTATION ID [id number] DH RAD Anatomical Region Laterality Modality Chest [...] and low lung volumes. Findings similar to pile driving nozzleman radiograph from CT 10/30/2023. Thank you for letting us participate in the care of this patient. ??If you are a health care provider and have any questions regarding this report, please contact the number below. ??For patients who have questions please contact the health manager medicare marketing that requested your imaging first. ? Narrative [...] and low lung volumes. Findings similar to pile driving nozzleman radiograph from CT 10/30/2023. Thank you for letting us participate in the care of this patient. If youare a health care provider and have any questions regarding this report,please contact the number below. For patients who have questions please contactthe health manager medicare marketing that requested your imaging first. Rosa Cornejo MD IMG DX ORDERABLES * Green Tube HOLD (10/30/2023 10:05 PM EDT) [facility] Green Hold Sample in lab. [facility] Blood Venous Draw / Unknown 10/30/2023 10:05 PM EDT 10/30/2023 10:13 PM EDT Qamar Gallardo MD CHEMISTRY ORDERABLES [facility] [place] [address] * (ABNORMAL) Differential, Automated (10/30/2023 10:05 PM EDT) Pathologist [facility] Neutrophil % 76.6 % [facility] Neutrophil Absolute 6.94(H) 1.70 - 6.10 x10(3)/mc L [facility] Lymph % 15.4 % [facility] Lymphocytes Abs 1.4 0.9 - 3.2 x10(3)/mc L [facility] Monocyte % 6.1 % [facility] Monocyte Abs 0.6 0.3 - 0.9 x10(3)/mc L [facility] Eos % 1.1 % ST [...] HEMATOLOGY ORDERABLE S Performing Organization Address City/State/[facility] Co de Phone Number [facility] [place] [address] * (ABNORMAL) Hemogram (10/30/2023 10:05 PM EDT) [...] S Performing Organization Address City/[facility]/ZIP Co de Phone Number [facility] [place] [address] * Hemoglobin A1c (10/30/2023 10:05 PM EDT) [...] [id number] Estimated Average Glucose See note mg/dL [facility] Comment: Estimated Average Glucose not appropriate for patients over 70 years of age. Blood 10/30/2023 10:0 5 PM EDT 10/30/2023 10:12 PM EDT Narrative Resulting Agency Comment Spec In Lab Rosa Cornejo MD CHEMISTRY ORDERABLE S [facility] [place] [address] * Lipid Panel (Reflex Direct LDL) (10/30/2023 10:05 PM EDT) [facility] Cholesterol, Total 218 mg/dL Dorene [facility] Comment: Desirable: ? <200 mg/dL Borderline High: 200-239 mg/dL Higher: ?>ag=260 mg/dL Triglyceride 46 mg/dL [facility] Comment: Normal: ?<150 mg/dL Borderline High: 150-199 mg/dL High: ?200-499 mg/dL Very High: ? >gx=945 mg/dL HDL Cholesterol 64 mg/dL [facility] Comment: Females: High Risk: <50 mg/dL Males: High Risk: <40 mg/dL LDL Cholesterol 145 mg/dL [facility] Comment: Desirable: ? <100 mg/dL Above Desirable: 100-129 mg/dL Borderline High: 130-159 mg/dL High: ?160-189 mg/dL Very High: ? >ic=688 mg/dL Lipid Interpretation See Note [facility] [...] individuals with atherosclerotic cardiovascular disease (ASCVD)or LDL >qv=196 mg/dL, use a high-intensity statin (40-80 mg [...] MD CHEMISTRY ORDERABLE S Performing Organization Address [facility] Co de Phone Number [facility] [place] [address] * TSH [place] (10/30/2023 10:05 PM EDT) Thyroid Stimulating Hormone 3.35 0.27 - 4.20 mcIU/mL [facility] Comment: Reference Interval (mcIU/mL): Females: ??First Trimester: 0.23-3.88 ??Second Trimester: 0.22-3.90 ??Third Trimester: 0.44-4.66 Blood 10/30/2023 10:0 5 PM EDT 10/30/2023 10:12 PM EDT Narrative Resulting Agency Comment Spec In Lab Rosa Cornejo MD CHEMISTRY ORDERABLE S Performing Organization Address [facility]/ZIP Co de Phone Number [facility] [place] [address] * pro-Brain Natriuretic Peptide (10/30/2023 10:05 PM EDT) NT-proBNP 375 <=449 pg/mL [facility] Blood 10/30/2023 10:0 5 PM EDT 10/30/2023 10:12 PM EDT Narrative Resulting Agency Comment Spec In Lab Rosa Cornejo MD CHEMISTRY ORDERABLE S [facility] [place] [address] * (ABNORMAL) Comprehensive metabolic panel (non-fasting) (10/30/2023 10:05 PM EDT) Pathologist [facility] Glucose 121 65 - 199 mg/dL [facility] [...] S Performing Organization Address City/[facility]/ZIP Co de Phone Number [facility] [place] [address] * Phosphorus (10/30/2023 10:05 PM EDT) Phosphorus 3.3 2.5 - 4.5 mg/dL [facility] Blood 10/30/2023 10:0 5 PM EDT 10/30/2023 10:12 PM EDT Narrative Resulting Agency Comment Spec In Lab Rosa Cornejo MD CHEMISTRY ORDERABLE S [facility] [place] [address] * Magnesium (10/30/2023 10:05 PM EDT) Magnesium 0.86 0.69 - 1.07 mmol/L [facility] Blood 10/30/2023 10:0 5 PM EDT 10/30/2023 10:12 PM EDT Narrative Resulting Agency Comment Spec In Lab Rosa Cornejo MD CHEMISTRY ORDERABLE S Performing Organization Address City/[facility]/ZIP Co de Phone Number [facility] [place] [address] * (ABNORMAL) Troponin (10/30/2023 10:05 PM EDT) [...] can be found in the [facility] Test Catalog Troponin - [facility] Test Catalog Reference: Fourth Brokaw Definition of Myocardial Infarction. Journal of the [place] [employer] 2018;72:0450-8711 Blood 10/30/2023 10:0 5 PM EDT 10/30/2023 10:12 PM EDT Narrative Resulting Agency Comment Spec In Lab Rosa Cornejo MD CHEMISTRY ORDERABLE S Performing Organization Address City/[facility]/ZIP Co de Phone Number [facility] [place] [address] * EKG 12 Lead (10/30/2023 8:21 PM EDT) Ventricular rate 49 BPM MUSE SYSTEM Atrial Rate 49 BPM MUSE SYSTEM P-R Interval 230 ms MUSE SYSTEM QRS Duration 96 ms MUSE SYSTEM Q-T Interval 526 ms MUSE SYSTEM QTC Calculated (Bezet) 475 ms MUSE SYSTEM Calculated P [place] 98 degrees MUSE SYSTEM Calculated R [place] -48 degrees MUSE SYSTEM Calculated T [place] -51 degrees MUSE SYSTEM INTERPRETATION Sinus bradycardia [...] Reason: Transfer to a Procedural area)1548 ([facility] Unhold - Provider: Admin Adt) [...] Reason: Transfer to a Procedural area)1548 ([facility] Unhold - Provider: Admin Adt) [...] documented as of this encounter Care Teams Obstetrical Anesthesiologist Relationship Specialty Start Date End Date Rosie Mathews MD [address] [place] [id number] PCP - General Family Medicine 11/25/17 11/23/23 documented as of this encounter
--- OUTSIDE RECORDS SUMMARY | 2024-03-12 10:14 | XMS_ITS | Encounter Summary ---
Author Organization [facility] Address [address] [place] [address] Care Team Providers Care Natural Sciences Professor Name Role Phone Kirsten Bateman MD Primary Care Provider [phone] Reason for Visit * Reason Comments Hearing Loss tinnitus Encounter Details Date Type Department Care Team (Latest Contact Info) Description 01/15/2010 10:10 EDT Office Visit [address] [address] Unknown, ProviderMD Ray Farooq MD [address] [place] [address] [address] Sensorineural hearing loss, bilateral; Subjective [...] Ray Farooq MD - 01/28/2010 1108 EDT [facility] PRO[facility]ESS/FOLLOWUP NOTE - 01/15/2010 CHIEF COMPLAINT: [...] Farooq MD - Ray Farooq MD - [facility] Job ID: SM Doc ID: [id number] Ext Doc ID: [id number] cc: Kirsten Bateman MD * Ray Farooq [...] tinnitus documented in this encounter Care Teams Natural Sciences Professor Relationship Specialty Start Date End Date Kirsten Bateman MD [address] [place] [address] PCP - General 01/13/10 documented as of this encounter
--- OUTSIDE RECORDS SUMMARY | 2024-03-12 10:14 | XMS_ITS | Encounter Summary ---
Author Organization Formerly [facility] Address [facility] [place] [address] Care Team Providers Care Service Engineer Name Role Phone Rosie Mathews MD Primary Care Provider [phone] Reason for Visit * Reason Comments Skin Lesion * Consultation (Routine) - Closed Specialty Diagnoses / Procedures Referred By John hunt Referred To Contact Dermatology Diagnoses facial skin lesion Procedures pt would like to be seen PRADEEP Rosie Mathews MD [address] [place] [address] [facility] Dermatology [address] [place] [address] Referral ID Status Reason Start Date Expiration Date V isits Requested Visits Authorized [id number] Closed Consult, Test & Treat Connection Center 10/25/2017 10/25/2018 1 1 Encounter Details Date Type Department Care Team (Late st Contact Info) Description 11/25/2017 4:30 PM EDT Office Visit Dermatology at [facility] [address] [place] [address] Call, Radu Go MD [facility] [address] [place] [address] Seborrheic keratosis; Fibrous papule of [...] Radu Tom MD Resident in Dermatology [facility] Patient seen in conjunction with staff lacquer coater: Terri Hale MD Section of Dermatology [facility] * Terri Hale MD - 11/25/2017 4:30 PM EDT I directly supervised Dr. oTm during this office visit. Dr. Tom presented [...] AM EDT Office Visit Cardiology at [address] [address] Izaiah Meyer MD [facility] [place] [address] documented as of this encounter Visit Diagnoses Diagnosis Seborrheic keratosis Other seborrheic keratosis Fibrous papule of nose Benign neoplasm of skin of other and unspecified parts of face Skin tags, multiple acquired documented in this encounter Care Teams Service Engineer Relationship Specialty Start Date End Date Rosie Mathews MD [address] [place] [address] PCP - General Family Medicine 11/25/17 11/23/23 documented as of this encounter
--- OUTSIDE RECORDS SUMMARY | 2024-03-12 10:14 | XMS_ITS | Clinical Summary ---
Author Organization [facility] Address [address] [place] [address] Care Team Providers Care C 40A Crew Chief Name Role Phone Kirsten Bateman MD Primary Care Provider [phone] Allergies Active Allergy Reactions Criticality Noted Date [...] COVID-19 Vaccine (2022- season) 2024 Care Teams C 40A Crew Chief Relationship Specialty Start Date End Date Kirsten Bateman MD [address] [place] [phone] PCP - General 01/13/10
--- OUTSIDE RECORDS SUMMARY | 2024-03-12 10:14 | XMS_ITS | Encounter Summary ---
Author Organization Formerly [facility] Address [facility] [place] [address] Care Team Providers Care Ethnoarchaeologist Name Role Phone Rosie Mathews MD Primary Care Provider [phone] Encounter Details Date Type Department Care Team (Late st Contact Info) Description 10/30/2023 External Results Transfer Center [facility] [address] Social History Tobacco Use Types Packs/Day Years Used Date Smoking Tobacco: Former Smokeless Tobacco: Never Alcohol Use Standard Drinks/Week Comments Not Currently 0 (1 standard drink = 0.6 oz pur e alcohol) [facility] Utilities Answer Date Recorded In the past 12 months has e [employer], gas, oil, or water [employer] threatened to shut off services in [...] AM EDT Office Visit Cardiology at [address] [address] Izaiah Meyer MD [facility] [place] [address] documented as of this encounter Procedures Procedure [...] on filedocumented in this encounter Care Teams Ethnoarchaeologist Relationship Specialty Start Date End Date Rosie Mathews MD [address] [place] [address] PCP - General Family Medicine 11/25/17 11/23/23 documented as of this encounter
--- OUTSIDE RECORDS SUMMARY | 2024-03-12 10:14 | XMS_ITS | Encounter Summary ---
Author Organization [facility] Address [facility] [place] [address] Care Team Providers Care Telex Operator Name Role Phone Rosie Mathews MD Primary Care Provider [phone] Encounter Details Date Type Department Care Team (Late st Contact Info) Description 10/30/2023 [place] [address] Jose Lee MD [facility] [place] [address] Social History Tobacco Use Types Packs/Day Years Used Date Smoking Tobacco: Former Smokeless Tobacco: Never Alcohol Use Standard Drinks/Week Comments Not Currently 0 (1 standard drink = 0.6 oz pur e alcohol) [facility] Utilities Answer Date Recorded In the past 12 months has th e [employer], gas, oil, or water [employer] threatened to shut off services in your [...] AM EDT Office Visit Cardiology at [address] [address] Izaiah Meyer MD [facility] [place] [address] documented as of this encounter Visit Diagnoses Not on filedocumented in this encounter Additional Health Concerns Infection Onset Date Last Indicated Resolved Time Rule Out Respiratory 11/02/2023 11/02/2023 024 12:22 PM EDT Rule Out COVID-19 11/02/2023 11/02/2023 11/02/2023 12:22 PM EDT documented as of this encounter Care Teams Telex Operator Relationship Specialty Start Date End Date Rosie Mathews MD [address] [place] [address] PCP - General Family Medicine 11/25/17 11/23/23 documented as of this encounter
--- OUTSIDE RECORDS SUMMARY | 2024-03-12 10:14 | XMS_ITS | Encounter Summary ---
Author Organization [facility] Address [address] [place] [address] Care Team Providers Care Biochemistry Professor Name Role Phone Kirsten Bateman MD Primary Care Provider [phone] Encounter Details Date Type Department Care Team (Late st Contact Info) Description 01/27/2021 Lab Requisition [facility] Pathology & Laboratory Medicine - [facility] [address] [place] [address] Outr Resulting Lab, Provider Social History Tobacco [...] Outr Resulting Lab MICROBIOLOGY - GENERAL ORDERABLES [facility] [address] [place] [address] * COVID-19 TESTING (01/26/2021 16:45 EDT) COVID-19 rt-PCR Result Negative Negative 01/28/2021 13:31 EDT [facility] Comment: This test has [...] developed and its performance characteristics determined by [facility]. It has not been cleared or [...] testing. This test is based on the [facility] COVID-19 Emergency Use Authorization (EUA) assay, with minor modification as defined by the FDA Performed on the TrustAlerto 7 Pro RT-PCR System. Performing Lab [facility] Lab 01/28/2021 13:31 EDT [facility] Swab 01/26/2021 16:4 5 EDT 01/27/2021 15:46 EDT Provider Outr Resulting Lab MICROBIOLOGY - GENERAL ORDERABLES [facility] [address] [place] [address] documented in this encounter Visit Diagnoses Not on filedocumented in this encounter Care Teams Biochemistry Professor Relationship Specialty Start Date End Date Kirsten Bateman MD [address] [place] [address] PCP - General 01/13/10 documented as of this encounter
--- OUTSIDE RECORDS SUMMARY | 2024-03-12 10:14 | XMS_ITS | Encounter Summary ---
Author Organization [facility] Address [address] [place] [address] Care Team Providers Care Front Office Specialist Name Role Phone Kirsten Bateman MD Primary Care Provider [phone] Encounter Details Date Type Department Care Team (Late st Contact Info) Description 01/14/2010 Abstract Used for ABSTRACTING Data [phone] Kirsten Bateman MD [address] [place] [address] Social History Tobacco Use Types [...] (FATTY ACID BASE MISC) by [facility]Non-Drug; Combo Route) route. EPA CYANOCOBALAMIN (VITAMIN B-12 ORAL) Take by mouth. ASCORBIC ACID (VITAMIN C ORAL) Take by mouth. VITAMIN E ACETATE (VITAMIN E ORAL) Take by mouth. ASPIRIN ORAL Take by mouth. AMITRIPTYLINE HCL (AMITRIPTYLINE ORAL) Take by mouth. ATENOLOL ORAL Take by mouth. SIMVASTATIN ORAL Take by mouth. added in this encounter Care Teams Front Office Specialist Relationship Specialty Start Date End Date Kirsten Bateman MD [address] [place] [phone] PCP - General 01/13/10 documented as of this encounter
--- OUTSIDE RECORDS SUMMARY | 2024-03-12 10:14 | XMS_ITS | Encounter Summary ---
Author Organization [facility] Address [facility] [place] [address] Care Team Providers Care Associate Project Manager Name Role Phone Rosie Mathews MD Primary Care Provider Reason for Visit * Consultation (Routine) - Closed Specialty Diagnoses / Procedures Referred By Contbruce hunt Referred To Contact Audiology Diagnoses Hearing assessment and treatment options Karson John MD [address] [place] [address] [facility] [address] [place] [phone] Referral ID Status Reason Start Date Expiration Date V isits Requested Visits Authorized [id number] Closed Consult, Test & Treat Connection Center 11/22/2017 11/22/2018 1 1 Encounter Details Date Type Department Care Team (Latest Contact Info) Description 11/30/2017 3:15 PM EDT Office Visit Audiology at [address] [address] Georgette Onofre AUD [facility] [place] [address] Sensorineural hearing loss, bilateral; Bilateral [...] 10-15 years. Ms. Goodrich obtained binaural [facility] in-the-ear hearingaids nine years ago in [place], [place]. She stated she continues to experience [...] tone audiogram. SNR loss is the increased zkjmwb-cx-eldjd ratio required by an individual to understand [...] not hesitate to contact this Section at [phone] if there are questions regarding this report or its recommendations. Romeo Becker [place] [id number] Attachment: audiogram CC: MD Karson Loo MD Laurmarco a Catherine Ed[address]jos[address] [facility] [address] [place] [phone] documented in this encounter Plan of Treatment Upcoming Encounters Date Type Department Care Team (Late st Contact Info) Description 03/29/2024 11:20 AM EDT Office Visit Cardiology at [address] [place] [address] Izaiah Meyer MD [facility] [place] [address] documented as of this encounter Procedures Procedure [...] tinnitus documented in this encounter Care Teams Associate Project Manager Relationship Specialty Start Date End Date Rosie Mathews MD [address] [place] [address] PCP - General Family Medicine 11/25/17 11/23/23 documented as of this encounter
--- OUTSIDE RECORDS SUMMARY | 2024-03-12 10:14 | XMS_ITS | Referral Summary ---
Author Organization [facility] Address [address] [place] [address] Care Team Providers Care Plating Inspector Name Role Phone Kirsten Bateman MD Primary Care Provider [phone] Allergies Active Allergy Reactions Criticality Noted Date [...] of Treatment Not on file Care Teams Plating Inspector Relationship Specialty Start Date End Date Kirsten Bateman MD [address] [place] [address] [facility] - General 01/13/10
--- OUTSIDE RECORDS SUMMARY | 2024-03-12 10:14 | XMS_ITS | Encounter Summary ---
Author Organization [facility] Address [address] [place] [address] Care Team Providers Care Wire Bender Name Role Phone Unavailable Primary Care Provider Unavailabl e Encounter Details Date Type Department Care Team (Late st Contact Info) Description 01/10/2008 Before PRISM Converted Visit (Maple) [facility] - Maple conversion [address] [place] [address] Ray Farooq MD [address] [place] [phone] Social History Tobacco Use Types Packs/Day Years Used Date Smoking Tobacco: Never Assessed Sex and Gender Information Value Date Recorded Sex Assigned at Not on file Gender Identity Not on file Sexual Orientation Not on file documented as of this encounter Consult Notes * Ray Farooq MD - 03/21/2009 1078 EDT [facility] - 01/10/2008 Kirsten Bateman MD [facility] [address] [place] [address] Bateman: Chief complaint: Hearing loss. History of present illness: Eege[age]old female with along history of bilateral hearing [...] aspirin, vitamin E, C, B12, B125 complex, [place], EPA fatty acid, coral calcium complex, potassium chloride, Diovan, and hormone essentials. She has drug allergies to cortisone, Percocet, and hydrocodone. Family history is significant for cancer. Social history: The patient is a nonsmoker, nondrinker. She lives in [place]. Review of systems is significant for allergies, [...] Tosin Farooq MD - MLD Job ID: [id number] Doc ID: [id number] cc: Kirsten Bateman MD cc: Kirsten Bateman MD documented in this encounter Plan of Treatment Not on file documented as of this encounter Visit Diagnoses Not on filedocumented in this encounter
--- OUTSIDE RECORDS SUMMARY | 2024-03-15 08:30 | XMS_ITS | Encounter Summary ---
Author Organization [facility] Address [facility] [place] [address] Care Team Providers Care Counselor Camp Name Role Phone Masood Pierson MD Primary Care Provider [phone] Encounter Details Date Type Department Care Team (Late st Contact Info) Description 12/16/2023 Telephone Cardiology at [address] [place] [address] Izaiah Meyer MD [facility] [place] [address] Social History Tobacco Use Types Packs/Day Years Used Date Smoking Tobacco: Former Smokeless Tobacco: Never Alcohol Use Standard Drinks/Week Comments Not Currently 0 (1 standard drink = 0.6 oz pur e alcohol) [facility] Utilities Answer Date Recorded In the past 12 months has [employer], gas, oil, or water [employer] threatened to shut off services in your [...] RN - 12/16/2023 11:25 AM EDT Denise, [facility] Cardiac director of radio services, called to report that at today's session [...] AM EDT Office Visit Cardiology at [address] [place] [address] Izaiah Meyer MD [facility] [place] [place] [address] documented as of this encounter Visit Diagnoses Not on filedocumented in this encounter Care Teams Counselor Camp Relationship Specialty Start Date End Date Masood Pierson MD [address] [place] [address] PCP - General Family Medicine 11/24/23 documented as of this encounter
--- OUTSIDE RECORDS SUMMARY | 2024-03-15 08:30 | XMS_ITS | Encounter Summary ---
Author Organization [facility] Address [facility] [place] [address] Care Team Providers Care Wafer Machine Operator Name Role Phone Masood Pierson MD Primary Care Provider [phone] Encounter Details Date Type Department Care Team (Late st Contact Info) Description 02/24/2024 11:10 PM EDT Ancillary Procedure Radiology Library at [facility] [place] [phone] Masood Pierson MD [address] [place], [place] [address] Social History Tobacco Use Types Packs/Day Years [...] AM EDT Office Visit Cardiology at [address] [address] Izaiah Meyer MD [facility] [place] [address] documented as of this encounter Procedures Procedure [...] IMG FILM LIBRARY ORD ERABLES [facility] [place], [place] documented in this encounter Visit Diagnoses Not on filedocumented in this encounter Care Teams Wafer Machine Operator Relationship Specialty Start Date End Date Masood Pierson MD [address] [place] [address] PCP - General Family Medicine 11/24/23 documented as of this encounter
--- OUTSIDE RECORDS SUMMARY | 2024-03-15 08:30 | XMS_ITS | Clinical Summary ---
Author Organization [facility] Address [facility] [place] [address] Care Team Providers Care Tombstone Erector Helper Name Role Phone Masood Pierson MD Primary Care Provider [phone] Allergies Active Allergy Reactions Criticality Noted Date [...] Care Team Description 02/27/2024 Telephone Cardiology at [address] [address] Izaiah Meyer MD 02/24/2024 11:10 PM EDT Ancillary Procedure Radiology Library at [facility] [place] [address] Masood Pierson MD 02/24/2024 External Results Transfer Center [facility] [place] [address] 12/16/2023 Telephone Cardiology at [address] [address] Izaiah Meyer MD from Last 3 Months Social History Tobacco Use Types Packs/Day Years Used Date Smoking Tobacco: Former Smokeless Tobacco: Never Alcohol Use Standard Drinks/Week Comments Not Currently 0 (1 standard drink = 0.6 oz pur e alcohol) [facility] Utilities Answer Date Recorded In the past 12 months has th e electric, gas, oil, or water [employer] threatened to shut off services in your [...] AM EDT Office Visit Cardiology at [address] [place] [address] Izaiah Meyer MD [facility] [place] [address] Health Maintenance Due Date Last Done Comments Pneumoccocal Vaccine: 65+ (1 of 2 - PCV) 1945 Tetanus/Diphtheria/Pertussis Vaccines (1 - Tdap) 08/12 Zoster vaccine (1 of 2) 1989 Advance Directive 1994 Bone Density Scan 2004 Covid-19 Vaccine (1 - 2023-24 season) 2024 Influenza (Flu) vaccine (1 o [...] FILM LIBRARY ORD ERABLES Performing Organization Address City/State/[facility] Co de Phone Number [place], [place] from Last 3 Months Advance Directives * Attempt Cardiopulmonary Resuscitation - Inpatient (Latest Code Status on File) Date Activated Date Inactivated Comments 10/30/2023 9:58 PM 11/03/2023 7:13 PM Question Answer Comments Code Status decision made by: Patient Care Teams Tombstone Erector Helper Relationship Specialty Start Date End Date Masood Pierson MD [address] [place] [address] PCP - General Family Medicine 11/24/23
--- OUTSIDE RECORDS SUMMARY | 2024-03-15 08:30 | XMS_ITS | Encounter Summary ---
Author Organization [facility] Address [facility] [place] [address] Care Team Providers Care Sanding Machine Buffer Name Role Phone Rosie Mathews MD Primary Care Provider [phone] Encounter Details Date Type Department Care Team (Late st Contact Info) Description 11/18/2023 External Results Administration [facility] [place] [address] Social History Tobacco Use Types Packs/Day Years Used Date Smoking Tobacco: Former Smokeless Tobacco: Never Alcohol Use Standard Drinks/Week Comments Not Currently 0 (1 standard drink = 0.6 oz pur e alcohol) [facility] Utilities Answer Date Recorded In the [...] AM EDT Office Visit Cardiology at [address] [phone] Izaiah Meyer MD [facility] [place] [address] documented as of this encounter Procedures Procedure Name Priority Date/Time Associated Diagnosis Comments ECG SCAN Routine 11/18/2023 4:50 PM EDT documented in this encounter Results * Scan Doc: ECG (11/18/2023 4:50 PM EDT) Historical Provider MEDIA MGR SCAN EX T ORDR/RSLT documented in this encounter Visit Diagnoses Not on filedocumented in this encounter Care Teams Sanding Machine Buffer Relationship Specialty Start Date End Date Rosie Mathews MD [address] [place] [address] PCP - General Family Medicine 11/25/17 11/23/23 documented as of this encounter
--- OUTSIDE RECORDS SUMMARY | 2024-03-15 08:30 | XMS_ITS | Encounter Summary ---
Author Organization [facility] Address [facility] [place] [address] Care Team Providers Care Flanger Name Role Phone Masood Pierson MD Primary Care Provider [phone] Encounter Details Date Type Department Care Team (Latest Contact Info) Description 11/24/2023 Travel Social History Tobacco Use Types Packs/Day Years Used Date Smoking Tobacco: Former Smokeless Tobacco: Never Alcohol Use Standard Drinks/Week Comments Not Currently 0 (1 standard drink = 0.6 oz pur e alcohol) [facility] Utilities Answer Date Recorded In the [...] AM EDT Office Visit Cardiology at [address] [address] Izaiah Meyer MD [facility] [place] [address] documented as of this encounter Visit Diagnoses Not on filedocumented in this encounter Care Teams Flanger Relationship Specialty Start Date End Date Masood Pierson MD [address] [place] [address] PCP - General Family Medicine 11/24/23 documented as of this encounter
--- OUTSIDE RECORDS SUMMARY | 2024-03-15 08:30 | XMS_ITS | Encounter Summary ---
Author Organization [facility] Address [facility] [place] [address] Care Team Providers Care Digital Field Service Technician Name Role Phone Rosie Mathews MD Primary Care Provider [phone] Reason for Referral * Consultation (Routine) - Authorized Specialty Diagnoses / Procedures Referred By Contac t Referred To Contact Cardiology Diagnoses 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 Rosa Hugo MD [facility] [place] [address] Cardiac Rehab, [address] [place] [address] Referral ID Status Reason Start Date Expiration Date Visits Requested Visits Authorized [id number] Authorized Consult, Test & Treat Non PCP 11/03/2023 05/01/2024 36 36 * Home Health Care (Routine) - Authorized Specialty Diagnoses / Procedures Referred By Contac t Referred To Contact Diagnoses Unstable angina Rosa Hugo MD [facility] [place] [address] Referral ID Status Reason Start Date Expiration Date Visits Requested Visits Authorized [id number] Authorized Consult, Test & Treat 11/03/2023 05/01/2024 999 999 Reason for Visit * Auth/Cert (Routine) Specialty Diagnoses / Procedures Referred By John hunt Referred To Contact Diagnoses Unstable angina Chest pain NSTEMI Procedures CARDIAC CATHETERIZATION Rosa Dewey MD [facility] [place] [address] [facility] Referral ID Status Reason Start Date Expiration Date Visits Re quested Visits Authorized [id number] 1 1 Encounter Details Date Type Department Care Team (Latest Contact Info) Description 10/30/2023 5:11 PM EDT - 11/03/2023 5:13 PM EDT Hospital Encounter Heart and Vascular Unit Level 4 [place] [address] Rosa Dewey MD [facility] [place] [address] Jean Laboy MD [facility] [place] [address] Rosa Hugo MD [facility] [place] [address] 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; Tachycardia; Unstable angina Discharge Disposition: Home Social History Tobacco Use Types Packs/Day Years Used Date Smoking Tobacco: Former Smokeless Tobacco: Never Alcohol Use Standard Drinks/Week Comments Not Currently 0 (1 standard drink = 0.6 oz pur e alcohol) [facility] Utilities Answer Date Recorded In the past 12 months has e Roost, gas, oil, or water [employer] threatened to shut off services in your [...] for hypertension and hyperlipidemia who presented to [facility] as a transfer from [facility] as a possible STEMI alert with acute onset chest pain. The patient reports that her symptoms initially began on Tuesday when she was walking to [employer] and experienced bilateral arm heaviness while walking with no other symptoms. Then, this afternoon shereports developing bilateral achy shoulder pain and nonradiating substernal left-sided chest pressure that was 7/10 in severity after coming home from [facility]. The patient denies any associated fevers, chills, [...] on repeat, her TRU resolved. Cardiology at [facility] was consulted for transfer; the patient was loaded with aspirin 324 mg and ticagrelor 180 mg, started on a heparin drip, and given nitroglycerin with improvement in chest pain. Upon arrival to [facility], the patient was taken directly to the Branch Office Administrator. Two lesions were discovered: one in the prox RCA (felt to almost be a LPN HOME HEALTH but they were able to wire, balloon, [...] prior to arrival in the microbiology lab manager. Recommended anti-platelet/anti-thrombotic regimen: Continue aspirin 81 mg [...] and low lung volumes. Findings similar to proposal engineer radiograph from CT 10/30/2023. Pending Studies [...] 10:40 AM Izaiah Meyer MD Cardiology at [facility] Arrive at: [facility] [address] [phone] Future Orders Complete By Expires Referral to Cardiac Rehab [[id number] Custom] As directed Process Instructions: If no progress note charted, please enter Clinical details in comments. Scheduling Instructions: Questions: My question or request is: STEMI. Cardiac rehab at [facility]. Referral to Home Health [[id number] Custom] As directed Process Instructions: If no progress note charted, please enter Clinical details in comments. Scheduling Instructions: Comments: Please evaluate Adin Santos for admission to Home Health. [address] [facility] [address] (home) Date of : 1940 Inpatient DOCUMENTATION FOR VNA SERVICES (INCLUDING THOSE PATIENTS WITH MEDICARE COVERAGE REQUIRING HOME VNA SERVICES AND/OR HOSPICE SERVICES) PATIENT'S LOCATION: Adin Santos [address] [facility] [phone] (home) Cell: Telephone Information: Cadmium Plater's Name: self In discussion with the attending physician, it is certified that this patient is under their care and that they, or a Nurse Practitioner, Clinical Nurse specialist or Physician Room Service Waiter/Waitress who is working directly with them, had [...] regarding health issues HOME HEALTH CARE AGENCY: [facility] [address] [place] [address] START OF CARE: within 24-48 hours of [...] [address] / [facility] [address] . All A agencies which cover [...] Mathews MD / Dr. Masood Pierson [address] [place] [address] 11/09/23 1:55 PM arrival for 2:10 PM appointment Resource Program Teacher: Izaiah Meyer MD [address] [place] [id number] , 11/24/2023 10:40 AM Your Inpatient Medical Team at [facility] Name(s) of your inpatient provider(s): Attending physician: Rosa Hugo MD Resident physicians: Emile Robles MD; Elmer Tamez MD If you have non-emergent questions, prior to your follow-up visit call: Tuesday-Tuesday between the hours of 8AM-5PM please call the Cardiology Clinic [phone] to speak with a nurse. All other hours please call the Hospital Copper Flotation Operator [phone] and ask to speak to the supervisor phosphoric acid on-call. Your Primary Care Provider Rosie Mathews MD [phone] For questions regarding this document or issues relating to this hospitalization on the Medical Service, please contact your inpatient physician through the [facility] Copper Flotation Operator . Issues afterhours and on weekends will be handled by the Resource Program Teacher staff on-call. Associated attestation - Rosa [...] MD / Dr. Masood Pierson [address] [place] [address] 11/09/23 1:55 PM arrival for 2:10 PM appointment Resource Program Teacher: Izaiah Meyer MD [address] [place] [address] , 11/24/2023 10:40 AM Your Inpatient Medical Team at [facility] Name(s) of your inpatient provider(s): Attending physician: Rosa Hugo MD Resident physicians: Emile Robles MD; Elmer Tamez MD If you have non-emergent questions, prior to your follow-up visit call: Tuesday-Tuesday between the hours of 8AM-5PM please call the Cardiology Clinic [phone] to speak with a nurse. All other hours please call the Hospital Copper Flotation Operator [phone] and ask to speak to the supervisor phosphoric acid on-call. Your Primary Care Provider Rosie Mathews MD [phone] documented in this encounter Medications at Time [...] Day 3 days ) Service: S1 ID: dAin Santos is a 83 y.o. female PMH significant for hypertension and hyperlipidemia who presented to [facility] for hypertension and hyperlipidemia who presented to [facility] [...] Resident on Cardiology Service Cardiology S1 (Pager [phone]) Note written in conjunction with Claudio Perla [facility] Medical Student, MS3 Associated attestation [...] - 11/01/2023 11:25 AM EDT Manager Of Finance Encounter Note Patient Name: Adin Santos : [id number] MR#: [id number] Admit Date: 10/30/2023 5:11 PM Hospital Day 2 days Narrative: Self initiated visit to patient for Spiritual support in a regular unit rounds. Assessment: Patient is in the bathroom at the time of this visit. Not a good time for Heel Cutter visit. Intervention and Outcome: An attempted visit [...] for hypertension and hyperlipidemia who presented to [facility] [...] and low lung volumes. Findings similar to proposal engineer radiograph from CT 10/30/2023. Scheduled Medications: [...] for hypertension and hyperlipidemia who presented to [facility] [...] Resident on Cardiology Service Cardiology S1 (Pager [phone]) Note written in conjunction with Claudio Perla [facility] Medical Student, MS3 Associated attestation [...] for hypertension and hyperlipidemia who presented to [facility] as a transfer from [facility] as a possible STEMI alert with acute onset chest pain. Active Problems: Active Hospital Problems Diagnosis Unstable angina Resolved Hospital Problems No resolved problems to display. 24 hr events: - Cath'd yesterday with lesion in the proximal RCA (initially thought it was LPN HOME HEALTH but they were ableto wire, balloon and [...] and low lung volumes. Findings similar to proposal engineer radiograph from CT 10/30/2023. TTE (05/13): [...] for hypertension and hyperlipidemia who presented to [facility] a [facility] [...] Resident on Cardiology Service Cardiology S1 (Pager [phone]) Note written in conjunction with Claudio Perla [facility] Medical Student, MS3 Associated attestation [...] PCP: Rosie Mathews MD PCP phone number: [phone] Date of Admission: 10/30/2023 ( Hospital Day 0 days ) Attending:Rosa Cornejo MD ID: Adin Santos is a 83 y.o. female PMH significant for hypertension and hyperlipidemia who presented to [facility] as a transfer from [facility] as a possible STEMI alert with acute onset chest pain. The patient reports that her symptoms initially began on Tuesday when she was walking to [employer] and experienced bilateral arm heaviness while walking with no other symptoms. Then, this afternoon shereports developing bilateral achy shoulder pain and nonradiating substernal left-sided chest pressure that was 7/10 in severity after coming home from [facility]. The patient denies any associated fevers, chills, [...] on repeat, her TRU resolved. Cardiology at [facility] was consulted for transfer; the patient was loaded with aspirin 324 mg and ticagrelor 180 mg, started on a heparin drip, and given nitroglycerin with improvement in chest pain. Upon arrival to [facility], the patient was taken directly to the Branch Office Administrator. 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 Findings similar to proposal engineer radiograph from CT 10/30/2023. Assessment & Plan: Adin Santos is a 83 y.o. female PMH significant for hypertension and hyperlipidemia who presented to [facility] [...] with HTN HLD transferred with chest from [facility]. BP 217/68, HR 71 EKG with [...] follow-up Home Health [facility], [place] [address] [place] [address] TANESHA BOYCE confirmed with [facility] that they will see the patient [...] N/A Patient is insured through: Primary Insurance: [employer]ED MEDICARE Payor: [email or web address] MEDICARE / Plan: [employer] MEDIC[employer] PPO / Product Type: *No [...] the room. Electrolytes replaced, see MAR. clinical lab technologist sites remained C/D/I with baseline ecchymosis unchanged. Pt complained of back pain, lidocaine patch given. Right IV infiltrated during infusion, patient is marked with sharpie, IV removed. See flowsheet for I+O's and safety rounding. Patient is able to make needs known and call capps within reach. PLAN MOVING FORWARD: Monitor Tele, control BP, monitor microbiology lab manager sites, D/C Planning INDIVIDUALIZED FALL PREVENTION INTERVENTIONS: [...] in an outpatient cardiac rehabilitation program at [facility] was discussed. Patient agrees to a [...] on RA. PT went to microbiology lab manager today. Left fem site oozed throughout shift, [...] Monitor Tele, control BP, monitor microbiology lab manager sites, D/C Planning INDIVIDUALIZED FALL PREVENTION INTERVENTIONS: [...] Admitted From: Transfer from another hospital Location: [facility] Reason for Hospitalization: chest pain Covid Vaccination Status: 1st, 2nd & booster Past medical History: No past medical history on file. Hospitalizations Within the Past 30 Days: no previous admission in last 30 days Current Decision-Making Capacity: Self If AD's have not been completed the following surrogate would be surrogate decision maker per [place] surrogate decision making law. (Only good for 180 days) Any patient receiving care in [place] must abide by [place] law. The hierarchy for surrogate decision making [...] (i) The agent with financial power of gritting 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 or a conservator appointed in accordance with [...] steady place to sleep or slept in [facility] (including now)?: No In the past [...] toilet seat Home Address confirmed as: [address] [place] [address] Social & Family Supports: All names listed below confirmed with patient as current and correct Extended Emergency Contact Information Primary Emergency Contact: Iris Downing Address: [address] [place], [place] [address] [place] [address] Mobile Relation: Child Secondary Emergency Contact: Karen More Address: [address] Mobile Relation: Child Current Care Provided by: self Provides Primary Care For: no one Caregiver if needed: child(emmanuel), adult Quality of Family relationships: involved, supportive Community Resources being provided currently: other (see comments) (receives [facility] services at home (1xweekly)) Behavioral [...] Insurance: N/A Prescription Coverage: Yes Preferred Pharmacy: [facility] - [place], [place] - [address] [facility] [address] [facility] [address] Status: Patient is a : No Primary Care Provider listed: Masood Pierson MD [phone] Patient/Caregiver Goals of Treatment: home when MR Potential Needs for Transition of Care: home health care Agency Referrals: Not Applicable I have met with the patient to: discuss discharge planning needs. provide the [facility], Office of Care Management letter from the Literacy Specialist pertaining to rehab referrals. provide a letter describing our affiliations within the [facility] and educate about their right to choose where referrals are sent. provide a list of Home Health Agencies / Durable Medical Equipment vendors which serve their preferred geographic area. provided patient with [facility] Star Quality Rating handout. They have requested referrals to: [facility] [address] [place] [address] Note routed to a Fluorescent Solution Mixer who will communicate referrals to facilities and [...] PO hydralazine added for BP control. clinical lab technologist sites remain C/D/I, ecchymosis unchanged th roughout shift. See flowsheet for I+O's and safety rounding. Patient is able to make needs known and call capps within reach. PLAN MOVING FORWARD: Monitor Tele, control CP and BP, NPO at MD for cath, monitor microbiology lab manager sites, D/C Planning INDIVIDUALIZED FALL PREVENTION INTERVENTIONS: [...] AM EDT Office Visit Cardiology at [address] [place] [address] Izaiah Meyer MD [facility] [place] [address] Scheduled Referrals Name Type Priority Associated Diagnoses [...] [facility] Monocyte % 16.9 % [facility] Monocyte Abs 1.4(H) 0.3 - 0.9 x10(3)/ L [facility] Eos % 3.7 % [facility] Eosinophils Abs 0.3 0.0 - 0.4 x10(3)/[facility] Basophil % 0.5 % [facility] [...] HEMATOLOGY ORDERABLE S [facility] [place] [address] * (ABNORMAL) Hemogram (11/03/2023 3:46 AM EDT) [...] HOSPITAL LABORATORY Platelet 181 145 - 357 x10(3)/[facility] RDW Standard Deviation 54.7(H) 37.0 - [...] HEMATOLOGY ORDERABLE S [facility] [place] [address] * Phosphorus (11/03/2023 3:46 AM EDT) Phosphorus 3.2 2.5 - 4.5 mg/dL [facility] Comment:result rechecked-KS Blood 11/03/2023 3:46 AM EDT 11/03/2023 4:11 AM EDT Narrative Resulting Agency Comment Spec In Lab Rosa Cornejo MD CHEMISTRY ORDERABLE S [facility] [place] [address] * Magnesium (11/03/2023 3:46 AM EDT) Magnesium 0.90 0.69 - 1.07 mmol/L [facility] Blood 11/03/2023 3:46 AM EDT 11/03/2023 4:11 AM EDT Narrative Resulting Agency Comment Spec In Lab Rosa Cornejo MD CHEMISTRY ORDERABLE S Performing Organization Address City/[facility]/ZIP Co de Phone Number [facility] [place] [address] * (ABNORMAL) Basic Metabolic Panel (non-fasting) (11/03/2023 [...] CHEMISTRY ORDERABLE S [facility] [place] [phone] * EKG 12 Lead (11/02/2023 12:44 PM EDT) Ventricular rate 83 BPM MUSE SYSTEM Atrial Rate 83 BPM MUSE SYSTEM P-R Interval 216 ms MUSE SYSTEM QRS Duration 90 ms MUSE SYSTEM Q-T Interval 384 ms MUSE SYSTEM QTC Calculated (Bezet) 451 ms MUSE SYSTEM Calculated P Hill 92 degrees MUSE SYSTEM Calculated R Hill -51 degrees MUSE SYSTEM Calculated T Hill -33 degrees MUSE SYSTEM INTERPRETATION Sinus rhythm with 1st degree A-V block with Premature atrial complexes Left axis deviation Moderate voltage criteria for LVH, may be normal variant ( R in aVL , Ifeanyi product ) Anterolatera l infarct (cited on or before 01-NOV-2023) Abnormal ECG When compared with ECG of 01-NOV-2023 22:10, Premature atrial complexes are now Present IA interval has increased Vent. rate has decreased BY ??56 BPM Confirmed by MD Kevin, Esteban ([id number]) on 11/02/2023 1:32:10 PM MUSE SYSTEM 11/02/2023 12:4 4 PM EDT 11/02/2023 1:32 PM EDT Rosa Hugo MD ECG ORDERABLES MUSE SYSTEM * (ABNORMAL) Urinalysis Microscopic Exam (11/02/2023 11:40 AM EDT) RBC, Urine <1 0 - 4 /HPF [facility] Comment: Interpret results with caution, microscopic results are from suboptimal specimen volume WBC, Urine 16(H) 0 - 5 /HPF [facility] Comment: Interpret results with caution, microscopic results are from suboptimal specimen volume Bacteria, Urine Many(A) None /HPF [facility] Squamous Epithelial Cells Raw Data, Urine 10(H) <=4 /HPF [facility] Hyaline Casts, Urine 2 0 - 2 /LPF [facility] Comment: Interpret results with caution, microscopic results are from suboptimal specimen volume Clean Catch Urine 11/02/2023 11:40 AM EDT 11/02/2023 12:05 PM EDT Narrative Resulting Agency Comment Spec In Lab Elmer Tamez MD URINE ORDERABLES Performing Organization Address City/[facility] Co de Phone Number [facility] [place] [address] * (ABNORMAL) Urinalysis with reflex Culture (11/02/2023 [...] HOSPITAL LABORATORY Leukocytes, Urine Dipstick Small(A) Negative [facility] Appearance, Urine Dipstick Cloudy(A) Clear [facility] Specific [place] Urine Automated >=1.030(A) 1.005 - 1.030 [facility] Color, Urine Dipstick Dark Yellow Yellow [facility] Reflex to Culture Yes [facility] Clean Catch Urine 11/02/2023 11:40 AM EDT 11/02/2023 12:04 PM EDT Narrative Resulting Agency Comment Spec In Lab Rosa Hugo MD URINE ORDERABLES Performing Organization Address City/State/[facility] Co de Phone Number [facility] [place] [address] * Respiratory Panel PCR (11/02/2023 10:15 AM EDT) Respiratory Panel Source [employer] Swab [facility] Respiratory Panel PCR Negative Negative [facility] Comment: Respiratory Panels are performed on the Searchspace, using multiplexed PCR nucleic acid detection. ??Negative [...] performed using the BioFire Respiratory Panel 2.1 (HelpAround) as authorized by the FDA issued Emergency [...] fact sheets at the following FDA website: https://www.fda.gov/medical-devices/mkltkjmkmaz-mfincdk-9770-flxzo-71-upsdmoahh- use-a hljvukjrlltzk-gujwnbc-zlialxe/qzvoz-jrgsygfhbar-qgkv Human Metapneumovirus Not Detected Not Detected [facility] [...] GEN ERAL ORDERABLES [facility] [place] [address] * XR Chest One View (11/02/2023 2:51 AM EDT) WORKSTATION ID [id number] RAD Anatomical Region Laterality Modality Chest N/A [...] have questions please contact the health healthcare representative that requested your imaging first. ? Electronically signed by: Omaira Tran MD, [facility] ([phone]), at 11/02/2023 4:56 AM Narrative 11/02/2023 4:56 [...] who have questions please contactthe health healthcare representative that requested your imaging first. Electronically signed by: Omaira Tran MD, [facility]([phone]), at 11/02/2023 4:56 AM Rosa Hugo MD IMG DX ORDERABLES * (ABNORMAL) Differential, Automated (11/02/2023 12:35 AM EDT) Neutrophil % 76.5 % [facility] Neutrophil Absolute 7.69(H) 1.70 - 6.10 x10(3)/mc L [facility] Lymph % 8.3 % [facility] Lymphocytes Abs 0.8(L) 0.9 - 3.2 x10(3)/mc L [facility] Monocyte % 12.9 % [facility] Monocyte Abs 1.3(H) 0.3 - 0.9 x10(3)/mc L [facility] Eos % 1.4 % [facility] Eosinophils Abs 0.1 0.0 - 0.4 x10(3)/mc L [facility] Basophil % 0.4 % [place] [...] Resulting Agency Comment Spec In Lab Qamar Glalardo MD HEMATOLOGY ORDERABLE S [facility] [place] [address] * (ABNORMAL) Hemogram (11/02/2023 12:35 AM EDT) [...] Mean Platelet Volume 11.4 7.6 - 12.9 [facility] NRBC% auto 0.0 % [facility] NRBC Absolute 0.000 0.000 - 0.000 x10(3)/ L [facility] Blood 11/02/2023 12:3 5 AM EDT 11/02/2023 12:43 AM EDT Narrative Resulting Agency Comment Spec In Lab Qamar Gallardo MD HEMATOLOGY ORDERABLE S [facility] [place] [address] * (ABNORMAL) Phosphorus (11/02/2023 12:35 AM EDT) Phosphorus 1.6(L) 2.5 - 4.5 mg/dL [facility] Blood 11/02/2023 12:3 5 AM EDT 11/02/2023 12:43 AM EDT Narrative Resulting Agency Comment Spec In Lab Rosa Cornejo MD CHEMISTRY ORDERABLE S [facility] [place] [address] * Magnesium (11/02/2023 12:35 AM EDT) Pathologist [facility] Magnesium 0.87 0.69 - 1.07 mmol/L [facility] Blood 11/02/2023 12:3 5 AM EDT 11/02/2023 12:43 AM EDT Narrative Resulting Agency Comment Spec In Lab Rosa Cornejo MD CHEMISTRY ORDERABLE S Performing Organization Address City/[facility]/ZIP Co de Phone Number [facility] [place] [address] * Basic Metabolic Panel (non-fasting) (11/02/2023 12:35 [...] CHEMISTRY ORDERABLE S [facility] [place] [address] * Blood culture (11/02/2023 12:35 AM EDT) Blood Culture No growth at 5 days. [facility] Blood 11/02/2023 12:3 5 AM EDT 11/02/2023 1:55 AM EDT Comment:#2 site ukn Narrative Resulting Agency Comment Spec In Lab Rosa Hugo MD MICROBIOLOGY - BLO OD ORDERABLES [facility] [place] [address] * Blood culture (11/02/2023 12:15 AM EDT) Blood Culture No growth at 5 days. [facility] Blood 11/02/2023 12:1 5 AM EDT 11/02/2023 1:54 AM EDT Comment:#1site unk Narrative Resulting Agency Comment Spec In Lab Rosa Hugo MD MICROBIOLOGY - BLO OD ORDERABLES Performing Organization Address City/[facility]/ZIP Co de Phone Number [facility] [place] [address] * EKG 12 Lead (11/01/2023 10:10 PM EDT) Ventricular rate 139 BPM MUSE SYSTEM Atrial Rate 139 BPM MUSE SYSTEM P-R Interval 168 ms MUSE SYSTEM QRS Duration 84 ms MUSE SYSTEM Q-T Interval 286 ms MUSE SYSTEM QTC Calculated (Bezet) 435 ms MUSE SYSTEM Calculated R Hill -59 degrees MUSE SYSTEM Calculated T Hill -27 degrees MUSE SYSTEM INTERPRETATION Mid-RP tachycardia, [...] interpretation Confirmed by fellow MD Andrés, Enriqueta ([id number]) on 11/04/2023 7:57:50 AM Confirmed by MD Gerardo, Shameka ([id number]) on 11/04/2023 4:32:03 PM MUSE SYSTEM 11/01/2023 10:1 0 PM EDT 11/04/2023 4:32 PM EDT Rosa Cornejo MD ECG ORDERABLES Performing Organization Address City/[facility]/ZIP Co de Phone Number MUSE SYSTEM * [...] HOSPITAL LABORATORY Platelet 197 145 - 357 x10(3)/[facility] RDW Standard Deviation 54.0(H) 37.0 - 46.0 fL [facility] RDW coefficient of variation 14.6(H) 11.5 - 14.1 % [facility] Mean Platelet Volume 11.2 7.6 - 12.9 fL [facility] NRBC% auto 0.0 % [facility] NRBC Absolute 0.000 0.000 - 0.000 x10(3)/[facility] Blood 11/01/2023 10:0 6 PM EDT 11/01/2023 10:22 PM EDT Narrative Resulting Agency Comment Spec In Lab Rosa Hugo MD HEMATOLOGY ORDERAB LES [facility] [place] [address] * POCT Glucose (11/01/2023 5:59 PM EDT) Glucose, POC 104 65 - 199 mg/dL [facility] Comment: Supplemental ranges: <140 mg/dL before meals <180 mg/dL all other times of the day Blood 11/01/2023 5:59 PM EDT 11/01/2023 5:59 PM EDT Rosa Hugo MD POINT OF CARE TEST ORDERABLES [facility] [place] [address] * POCT Glucose (11/01/2023 5:35 PM EDT) Glucose, POC 85 65 - 199 mg/dL [facility] Comment: Supplemental ranges: <140 mg/dL before meals <180 mg/dL all other times of the day Blood 11/01/2023 5:35 PM EDT 11/01/2023 5:35 PM EDT Rosa Hugo MD POINT OF CARE TEST ORDERABLES Performing Organization Address City/[facility] Co de Phone Number [facility] [place] [address] * EKG 12 Lead (11/01/2023 3:22 PM EDT) Ventricular rate 59 BPM MUSE SYSTEM Atrial Rate 59 BPM MUSE SYSTEM P-R Interval 220 ms MUSE SYSTEM QRS Duration 94 ms MUSE SYSTEM Q-T Interval 428 ms MUSE SYSTEM QTC Calculated (Bezet) 423 ms MUSE SYSTEM Calculated P Hill 76 degrees MUSE SYSTEM Calculated R Hill -50 degrees MUSE SYSTEM Calculated T Hill -59 degrees MUSE SYSTEM INTERPRETATION Sinus bradycardia [...] Modality Other Narrative 11/02/2023 4:57 PM EDT ?[facility] ? Cardiac Catheterization/Intervention Report ? Patient Name: Joleen, Adin Catherine. ? Procedure Date: 11/01/2023 ? A #: [id number] ? Primary Physician: Rosa Dewey I ? Case #: [id number] ? File Name: [id number] ? Catheterization Order Number: [id number] ? [facility] ? Final Report [place], [place] ? Patient Name: ? Adin Townsendjosue ?ID#: ?[id number] ? : ?1940 ? Procedure Date: ? [...] Urgent. The indication for ?the microbiology lab manager visit is ACS greater than 24 hrs. [...] ??A premounted ? 3.50 x 15 mm Caneadea [place] (RADHA) was deployed with a maximum ? [...] ? A premounted 3.50 x 15 mm Caneadea [place] (RADHA) was deployed ? with a maximum [...] prior to arrival in the microbiology lab manager. ?Recommended anti-platelet/anti-thrombotic regimen: ?Continue aspirin 81 mg daily for indefinitely. ?Continue clopidogrel 75 mg daily for 12 months then stop. ?These recommendations are made at the time of the intervention. Patient ?and provider preferences or a changing clinical situation may require ?modification of this regimen. Consult [facility] Interventional Cardiology for ?questions. ?The 1 year [...] Note Otto, Rosa I, MD - 12/12/2023 [facility] Cardiac Catheterization/Intervention Report Patient Name: Adin Santos Procedure Date: 11/01/2023 A #: [id number] Primary Physician: Rosa Dewey I Case #: [id number] File Name: [id number] Catheterization Order Number: [id number] [facility] FinalReport [place], [place] Patient Name: Adin Santos ID#:[id number] :1940 Procedure Date: November 01, 2023 Case [...] was Urgent. The indicationfor the microbiology lab manager visit is ACS greater than 24 hrs. [...] 14 atmospheres. Apremounted 3.50 x 15 mm Caneadea [place] (RADHA) was deployed with amaximum inflation pressure [...] of the LCX. This was a de bertni lesion. Thislesion was designated a type C [...] The lesion was predilated with a 3.00mm [id number] MM balloon with a maximum inflation pressure of 14atmospheres. A premounted 3.50 x 15 mm Andrea [place] (RADHA) wasdeployed with a maximum inflation pressure [...] prior to arrival in the microbiology lab manager. Recommended anti-platelet/anti-thrombotic regimen: Continue aspirin 81 mg daily for indefinitely. Continue clopidogrel 75 mg daily for 12 months then stop. These recommendations are made at the time of the intervention.Patient and provider preferences or a changing clinical situation mayrequire modification of this regimen. Consult [facility] Interventional Cardiologyfor questions. The 1 year bleeding [...] * POCT Glucose (11/01/2023 7:06 AM EDT) [facility] Glucose, POC 93 65 - 199 mg/dL [facility] Comment: Supplemental ranges: <140 mg/dL before meals <180 mg/dL all other times of the day Blood 11/01/2023 7:06 AM EDT 11/01/2023 7:06 AM EDT Jean Laboy MD POINT OF CARE TEST O RDERABLES [facility] [place] [address] * (ABNORMAL) Differential, Automated (11/01/2023 3:09 AM EDT) [facility] Neutrophil % 63.9 % [facility] Neutrophil Absolute 5.54 1.70 - 6.10 x10(3)/mc L [facility] Lymph % 20.0 % [facility] Lymphocytes Abs 1.7 0.9 - 3.2 x10(3)/mc L [facility] Monocyte % 11.9 % [facility] Monocyte Abs 1.0(H) 0.3 - 0.9 x10(3)/mc L [facility] Eos % 3.2 % [facility] Eosinophils Abs 0.3 0.0 - 0.4 x10(3)/mc L [facility] Basophil % 0.5 % [place] [...] City/State/[facility] Co de Phone Number [facility] [place] [address] * (ABNORMAL) Hemogram (11/01/2023 3:09 AM EDT) [...] [facility] NRBC% auto 0.0 % [facility] NRBC Absolute 0.000 0.000 - 0.000 x10(3)/mc L [facility] Blood 11/01/2023 3:09 AM EDT 11/01/2023 3:29 AM EDT Narrative Resulting Agency Comment Spec In Lab Qamar Gallardo MD HEMATOLOGY ORDERABLE S Performing Organization Address City/[facility]/ZIP Co de Phone Number [facility] [place] [address] * Phosphorus (11/01/2023 3:09 AM EDT) Phosphorus 2.5 2.5 - 4.5 mg/dL [facility] Blood 11/01/2023 3:09 AM EDT 11/01/2023 3:29 AM EDT Narrative Resulting Agency Comment Spec In Lab Rosa Cornejo MD CHEMISTRY ORDERABLE S Performing Organization Address City/[facility]/ZIP Co de Phone Number [facility] [place] [address] * Magnesium (11/01/2023 3:09 AM EDT) Magnesium 0.82 0.69 - 1.07 mmol/L [facility] Blood 11/01/2023 3:09 AM EDT 11/01/2023 3:29 AM EDT Narrative Resulting Agency Comment Spec In Lab Rosa Cornejo MD CHEMISTRY ORDERABLE S Performing Organization Address City/[facility]/ZIP Co de Phone Number [facility] [place] [address] * (ABNORMAL) Basic Metabolic Panel (non-fasting) (11/01/2023 [...] CHEMISTRY ORDERABLE S [facility] [place] [address] * (ABNORMAL) Troponin (10/31/2023 2:46 PM EDT) [...] [facility] Test Catalog Reference: Fourth Shubert Definition of Myocardial Infarction. Journal of the [employer] 2018;72:2758-6977 Blood 10/31/2023 2:46 PM EDT 10/31/2023 2:55 PM EDT Narrative Resulting Agency Comment Spec In Lab Jean Laboy MD CHEMISTRY ORDERABLES [facility] [place] [address] * EKG 12 Lead (10/31/2023 1:07 PM EDT) Ventricular rate 54 BPM MUSE SYSTEM Atrial Rate 54 BPM MUSE SYSTEM P-R Interval 218 ms MUSE SYSTEM QRS Duration 92 ms MUSE SYSTEM Q-T Interval 540 ms MUSE SYSTEM QTC Calculated (Bezet) 512 ms MUSE SYSTEM Calculated P Hill 85 degrees MUSE SYSTEM Calculated R Hill -44 degrees MUSE SYSTEM Calculated T Hill -69 degrees MUSE SYSTEM INTERPRETATION Sinus bradycardia [...] [facility] Test Catalog Reference: Fourth Shubert Definition of Myocardial Infarction. Journal of the [employer] 2018;72:6642-6145 Blood 10/31/2023 11:3 7 AM EDT 10/31/2023 11:50 AM EDT Narrative Resulting Agency Comment Spec In Lab Rosa Cornejo MD CHEMISTRY ORDERABLE S Performing Organization Address [facility]/State/ZIP Co de Phone Number [facility] [place] [address] * ECHO COMPLETE (10/31/2023 8:52 AM EDT) Anatomical Region Laterality Modality Cardiac Other 10/31/2023 7:57 AM EDT Narrative 10/31/2023 9:45 AM EDT [address] [place] [address] ? Echocardiogram Report Name: ADIN SANTOS ? Study Date: 10/31/2023 07:57 AMBP: 106/76 mmHg ? Patient Location: [id number] A : 1940 ? Height: 163 cm ? Account: [id number] Age: 83 yrs ? Weight: 76 kg [...] is no prior echocardiogram for comparison. Procedure Complete-[id number]. Satisfactory quality. There is sinus bradycardia. Left [...] Note Edgard Wang MD - 10/31/2023 [address] [place] [address] Echocardiogram Report Name: ADIN SANTOS Study Date: 407:57 AMBP: 106/76 mmHg Patient Location: [id number] : 1940 Height: 163 cm Account: [id number] Age: 83 yrs Weight: 76 kg Gender: [...] is no prior echocardiogram for comparison. Procedure Complete-67419. Satisfactory quality. There is sinus bradycardia. Left [...] [facility] Test Catalog Reference: Fourth Shubert Definition of Myocardial Infarction. Journal of the [employer] 2018;72:1037-3679 Blood 10/31/2023 8:51 AM EDT 10/31/2023 9:12 AM EDT Narrative Resulting Agency Comment Spec In Lab Rosa Cornejo MD CHEMISTRY ORDERABLE S [facility] [place] [address] * CARDIAC CATHETERIZATION (10/31/2023 8:10 AM EDT) Anatomical Region Laterality Modality Other Narrative 11/07/2023 9:42 AM EDT ?[facility] ? Cardiac Catheterization/Intervention Report ? Patient Name: Adin Santos. ? Procedure Date: 10/30/2023 ? A #: [id number] ? Primary Physician: Rosa Dewey I ? Case #: [id number] ? File Name: [id number] ? Catheterization Order Number: [id number] ? [facility] ? Final Report [place], [place] ? Patient Name: ? Adin M. Goguen ?ID#: ?[id number] ? : ?1940 ? Procedure Date: ? [...] Emergent. The indication for ?the microbiology lab manager visit is ACS less than or equal [...] ? A premounted 4.00 x 38 mm Caneadea [place] (RADHA) was deployed ? with a maximum [...] prior to arrival in the microbiology lab manager. ?Recommended anti-platelet/anti-thrombotic regimen: ?Continue aspirin 81 mg daily for 12 months then stop. ?Continue clopidogrel 75 mg daily for indefinitely. ?These recommendations are made at the time of the intervention. Patient ?and provider preferences or a changing clinical situation may require ?modification of this regimen. Consult [facility] Interventional Cardiology for ?questions. ? Conclusions: ?* [...] Procedure Note Rosa Dewey MD - 12/05/2023 [facility] Cardiac Catheterization/Intervention Report Patient Name: Adin Santos Procedure Date: 10/30/2023 A #: [id number] Primary Physician: Rosa Dewey I Case #: [id number] File Name: [id number] Catheterization Order Number: [id number] [facility] FinalReport [place], [place] Patient Name: Adin CatherineYasir Edvinree ID#:[id number] :1940 Procedure Date: October 30, 2023 Case #: [id number] Room: 5 Case Physician: Rosa Dewey M.D. [...] was designated as ASA Class III. The [facility] clinical frailtyscale is 5: Mildly Frail. Diagnostic Tests: Electrocardiography: EKG was assessed by ECG. EKG was Abnormal. EKG showed STDeviation >= 0.5 mm, other abnormality and dynamic EKG changes. Medications Prior to Procedure: Aspirin, Angiotensin II Receptor Kristy, Beta Kristy andStatin. Indications for Diagnostic Cath: The priority of the diagnostic procedure was Emergent. Theindication for the microbiology lab manager visit is ACS less than or equal [...] priority for the procedure was Emergent.The [facility] indication for the procedure was STEMI-Immediate [...] 16atmospheres. A premounted 4.00 x 38 mm Caneadea [place] (RADHA) wasdeployed with a maximum inflation pressure [...] prior to arrival in the microbiology lab manager. Recommended anti-platelet/anti-thrombotic regimen: Continue aspirin 81 mg daily for 12 months then stop. Continue clopidogrel 75 mg daily for indefinitely. These recommendations are made at the time of the intervention.Patient and provider preferences or a changing clinical situation mayrequire modification of this regimen. Consult [facility] Interventional Cardiologyfor questions. Conclusions: * Two vessel [...] * (ABNORMAL) Troponin (10/31/2023 4:21 AM EDT) [facility] Troponin-T, High Sensitivity 457(H) <=14 ng/L [facility] [...] [facility] Test Catalog Reference: Fourth Shubert Definition of Myocardial Infarction. Journal of the [employer] 2018;72:5307-2199 Blood 10/31/2023 4:21 AM EDT 10/31/2023 4:30 AM EDT Narrative Resulting Agency Comment Spec In Lab Rosa Cornejo MD CHEMISTRY ORDERABLE S [facility] [place] [address] * (ABNORMAL) Differential, Automated (10/31/2023 3:05 AM EDT) Neutrophil % 71.7 % [facility] Neutrophil Absolute 8.21(H) 1.70 - 6.10 x10(3)/mc L [facility] Lymph % 16.9 % [facility] Lymphocytes Abs 1.9 0.9 - 3.2 x10(3)/mc L [facility] Monocyte % 9.4 % [facility] Monocyte Abs 1.1(H) 0.3 - 0.9 x10(3)/mc L [facility] Eos % 1.3 % [facility] Eosinophils Abs 0.2 0.0 - 0.4 x10(3)/mc L [facility] Basophil % 0.4 % [place] [...] HEMATOLOGY ORDERABLE S [facility] [place] [address] * (ABNORMAL) Hemogram (10/31/2023 3:05 AM EDT) White Blood Cell 11.5(H) 4.0 - 9.5 x10(3)/ L [facility] Red Blood Cell 3.75(L) 4.00 - 5.21 x10(6)/[facility] Hemoglobin 12.6 11.7 - 15.5 g/dL [...] RDW Standard Deviation 53.4(H) 37.0 - 46.0 [facility] RDW coefficient of variation 14.6(H) 11.5 - 14.1 % [facility] Mean Platelet Volume 11.1 7.6 - 12.9 [facility] NRBC% auto 0.0 % [facility] NRBC Absolute 0.000 0.000 - 0.000 x10(3)/ L [facility] Blood 10/31/2023 3:05 AM EDT 10/31/2023 3:13 AM EDT Narrative Resulting Agency Comment Spec In Lab Qamar Gallardo MD HEMATOLOGY ORDERABLE S Performing Organization Address [facility] Co de Phone Number [facility] [place] [address] * (ABNORMAL) APTT (10/31/2023 3:05 AM EDT) [...] ORDERABL ES Performing Organization Address [facility] de Phone Number [facility] [place] [address] * (ABNORMAL) Prothrombin Time (10/31/2023 3:05 AM [...] ES Performing Organization Address [facility] Co de [place] [address] * (ABNORMAL) Differential, Automated (10/31/2023 1:37 AM EDT) Pathologist [facility] Neutrophil % 71.1 % [facility] Neutrophil Absolute 7.53(H) 1.70 - 6.10 x10(3)/ L [facility] Lymph % 18.0 % [facility] Lymphocytes Abs 1.9 0.9 - 3.2 x10(3)/ L [facility] Monocyte % 8.7 % [facility] Monocyte Abs 0.9 0.3 - 0.9 x10(3)/[facility] Eos % 1.6 % [facility] Eosinophils Abs 0.2 0.0 - 0.4 x10(3)/[facility] Basophil % 0.4 % [facility] Baso Absolute 0.0 0.0 - 0.1 x10(3)/[facility] Immature Gran % 0.20 % [facility] [...] HEMATOLOGY ORDERABLE S [facility] [place] [address] * (ABNORMAL) Hemogram (10/31/2023 1:37 AM EDT) [...] [facility] NRBC% auto 0.0 % [facility] NRBC Absolute 0.000 0.000 - 0.000 x10(3)/ L [facility] Blood 10/31/2023 1:37 AM EDT 10/31/2023 1:46 AM EDT Narrative Resulting Agency Comment Spec In Lab Qamar Gallardo MD HEMATOLOGY ORDERABLE S [facility] [place] [address] * Phosphorus (10/31/2023 1:37 AM EDT) Phosphorus 3.2 2.5 - 4.5 mg/dL [facility] Blood 10/31/2023 1:37 AM EDT 10/31/2023 1:46 AM EDT Narrative Resulting Agency Comment Spec In Lab Rosa Cornejo MD CHEMISTRY ORDERABLE S [facility] [place] [address] * Magnesium (10/31/2023 1:37 AM EDT) Pathologist [facility] Magnesium 0.83 0.69 - 1.07 mmol/L [facility] Blood 10/31/2023 1:37 AM EDT 10/31/2023 1:46 AM EDT Narrative Resulting Agency Comment Spec In Lab Rosa Cornejo MD CHEMISTRY ORDERABLE S Performing Organization Address [facility] Co de Phone Number [facility] [place] [address] * Basic Metabolic Panel (non-fasting) (10/31/2023 1:37 AM EDT) Pathologist [facility] Glucose 114 65 - 199 mg/dL [facility] [...] CHEMISTRY ORDERABLE S [facility] [place] [address] * (ABNORMAL) Troponin (10/31/2023 1:37 AM EDT) [...] [facility] Test Catalog Reference: Fourth Shubert Definition of Myocardial Infarction. Journal of the [employer] 2018;72:7033-9613 Blood 10/31/2023 1:37 AM EDT 10/31/2023 1:46 AM EDT Narrative Resulting Agency Comment Spec In Lab Rosa Cornejo MD CHEMISTRY ORDERABLE S Performing Organization Address [facility]/ZIP Co de Phone Number [facility] [place] [address] * EKG 12 Lead (10/31/2023 1:20 AM EDT) Ventricular rate 52 BPM MUSE SYSTEM Atrial Rate 52 BPM MUSE SYSTEM P-R Interval 224 ms MUSE SYSTEM QRS Duration 108 ms MUSE SYSTEM Q-T Interval 544 ms MUSE SYSTEM QTC Calculated (Bezet) 505 ms MUSE SYSTEM Calculated P Hill 90 degrees MUSE SYSTEM Calculated R Hill -57 degrees MUSE SYSTEM Calculated T Hill -63 degrees MUSE SYSTEM INTERPRETATION Sinus bradycardia [...] Cornejo MD ECG ORDERABLES Performing Organization Address City/[facility]/ZIP Co de Phone Number MUSE SYSTEM * EKG 12 Lead (10/30/2023 10:40 PM EDT) Ventricular rate 55 BPM MUSE SYSTEM Atrial Rate 55 BPM MUSE SYSTEM P-R Interval 232 ms MUSE SYSTEM QRS Duration 102 ms MUSE SYSTEM Q-T Interval 520 ms MUSE SYSTEM QTC Calculated (Bezet) 497 ms MUSE SYSTEM Calculated P Hill 75 degrees MUSE SYSTEM Calculated R Hill -53 degrees MUSE SYSTEM Calculated T Hill -57 degrees MUSE SYSTEM INTERPRETATION Sinus bradycardia with 1st degree A-V block Left anterior fascicular block Moderate voltage criteria for LVH, may be normal variant ( R in aVL , [place] product ) T wave abnormality, consider inferior [...] Chest One View (10/30/2023 10:10 PM EDT) [employer] WORKSTATION ID [id number] DH RAD Anatomical Region Laterality Modality Chest [...] and low lung volumes. Findings similar to proposal engineer radiograph from CT 10/30/2023. Thank you for letting us participate in the care of this patient. ??If you are a health care provider and have any questions regarding this report, please contact the number below. ??For patients who have questions please contact the health healthcare representative that requested your imaging first. [...] and low lung volumes. Findings similar to proposal engineer radiograph from CT 10/30/2023. Thank you for letting us participate in the care of this patient. If youare a health care provider and have any questions regarding this report,please contact the number below. For patients who have questions please contactthe health healthcare representative that requested your imaging first. Rosa Cornejo MD IMG DX ORDERABLES * Green Tube HOLD (10/30/2023 10:05 PM EDT) Pathologist [facility] Green Hold Sample in lab. [facility] Blood Venous Draw / Unknown 10/30/2023 10:05 PM EDT 10/30/2023 10:13 PM EDT Qamar Gallardo MD CHEMISTRY ORDERABLES [facility] [place] [address] * (ABNORMAL) Differential, Automated (10/30/2023 10:05 PM EDT) Pathologist [facility] Neutrophil % 76.6 % [facility] Neutrophil Absolute 6.94(H) 1.70 - 6.10 x10(3)/mc L [facility] Lymph % 15.4 % [facility] Lymphocytes Abs 1.4 0.9 - 3.2 x10(3)/mc L [facility] Monocyte % 6.1 % [facility] Monocyte Abs 0.6 0.3 - 0.9 x10(3)/mc L [facility] Eos % 1.1 % [facility] Eosinophils Abs 0.1 0.0 - 0.4 x10(3)/mc L [facility] Basophil % 0.6 % [place] [...] HEMATOLOGY ORDERABLE S [facility] [place] [address] * (ABNORMAL) Hemogram (10/30/2023 10:05 PM EDT) [...] [facility] NRBC% auto 0.0 % [facility] NRBC Absolute 0.000 0.000 - 0.000 x10(3)/mc L [facility] Blood 10/30/2023 10:0 5 PM EDT 10/30/2023 10:12 PM EDT Narrative Resulting Agency Comment Spec In Lab Qamar Gallardo MD HEMATOLOGY ORDERABLE S Performing Organization Address [facility] Co de Phone Number [facility] [place] [address] * Hemoglobin A1c (10/30/2023 10:05 PM EDT) [...] Mellitus, Diabetes Care 2013; 36: Suppl. 1, S67-56 Estimated Average Glucose See note mg/dL [facility] Comment: Estimated Average Glucose not appropriate for patients over 70 years of age. Blood 10/30/2023 10:0 5 PM EDT 10/30/2023 10:12 PM EDT Narrative Resulting Agency Comment Spec In Lab Rosa Cornejo MD CHEMISTRY ORDERABLE S Performing Organization Address [facility] Co de Phone Number [facility] [place] [address] * Lipid Panel (Reflex Direct LDL) (10/30/2023 10:05 PM EDT) Cholesterol, Total 218 mg/dL [facility] Comment: Desirable: ? <200 mg/dL Borderline High: 200-239 mg/dL Higher: ?>ui=938 mg/dL Triglyceride 46 mg/dL [facility] Comment: Normal: ?<150 mg/dL Borderline High: 150-199 mg/dL High: ?200-499 mg/dL Very High: ? >rr=694 mg/dL HDL Cholesterol 64 mg/dL [facility] Comment: Females: High Risk: <50 mg/dL Males: High Risk: <40 mg/dL LDL Cholesterol 145 mg/dL [facility] Comment: Desirable: ? <100 mg/dL Above Desirable: 100-129 mg/dL Borderline High: 130-159 mg/dL High: ?160-189 mg/dL Very High: ? >wo=183 mg/dL Lipid Interpretation See Note [facility] [...] ACC/AHA Guidelines (most recently Feliciano et al. [facility] 03/23/22): For individuals with atherosclerotic cardiovascular disease (ASCVD)or LDL >gc=435 mg/dL, use a high-intensity statin (40-80 mg [...] S Performing Organization Address [facility] Co de Phone Number [facility] [place] [address] * [place] (10/30/2023 10:05 PM EDT) Thyroid Stimulating Hormone 3.35 0.27 - 4.20 mcIU/mL [facility] Comment: Reference Interval (mcIU/mL): Females: ??First Trimester: 0.23-3.88 ??Second Trimester: 0.22-3.90 ??Third Trimester: 0.44-4.66 Blood 10/30/2023 10:0 5 PM EDT 10/30/2023 10:12 PM EDT Narrative Resulting Agency Comment Spec In Lab Rosa Cornejo MD CHEMISTRY ORDERABLE S Performing Organization Address [facility] Co de Phone Number [facility] [place] [address] * pro-Brain Natriuretic Peptide (10/30/2023 10:05 PM EDT) NT-proBNP 375 <=449 pg/mL [facility] Blood 10/30/2023 10:0 5 PM EDT 10/30/2023 10:12 PM EDT Narrative Resulting Agency Comment Spec In Lab Rosa Cornejo MD CHEMISTRY ORDERABLE S [facility] [place] [address] * (ABNORMAL) Comprehensive metabolic panel (non-fasting) (10/30/2023 [...] MD CHEMISTRY ORDERABLE S Performing Organization Address City/[facility]/ZIP Co de Phone Number [facility] [place] [address] * Phosphorus (10/30/2023 10:05 PM EDT) Phosphorus 3.3 2.5 - 4.5 mg/dL [facility] Blood 10/30/2023 10:0 5 PM EDT 10/30/2023 10:12 PM EDT Narrative Resulting Agency Comment Spec In Lab Rosa Cornejo MD CHEMISTRY ORDERABLE S Performing Organization Address City/[facility]/ZIP Co de Phone Number [facility] [place] [address] * Magnesium (10/30/2023 10:05 PM EDT) Magnesium 0.86 0.69 - 1.07 mmol/L [facility] Blood 10/30/2023 10:0 5 PM EDT 10/30/2023 10:12 PM EDT Narrative Resulting Agency Comment Spec In Lab Rosa Cornejo MD CHEMISTRY ORDERABLE S Performing Organization Address City/[facility]/ZIP Co de Phone Number [facility] [place] [address] * (ABNORMAL) Troponin (10/30/2023 10:05 PM EDT) [facility] Troponin-T, High Sensitivity 214(H) <=14 ng/L [facility] Test Catalog Reference: Fourth Shubert Definition of Myocardial Infarction. Journal of the [employer] 2018;72:9720-0982 Blood 10/30/2023 10:0 5 PM EDT 10/30/2023 10:12 PM EDT Narrative Resulting Agency Comment Spec In Lab Rosa Cornejo MD CHEMISTRY ORDERABLE S [facility] [place] [address] * EKG 12 Lead (10/30/2023 8:21 PM EDT) [facility] Ventricular rate 49 BPM MUSE SYSTEM Atrial Rate 49 BPM MUSE SYSTEM P-R Interval 230 ms MUSE SYSTEM QRS Duration 96 ms MUSE SYSTEM Q-T Interval 526 ms MUSE SYSTEM QTC Calculated (Bezet) 475 ms MUSE SYSTEM Calculated P Hill 98 degrees MUSE SYSTEM Calculated R Hill -48 degrees MUSE SYSTEM Calculated T Hill -51 degrees MUSE SYSTEM INTERPRETATION Sinus bradycardia with 1st degree A-V block Incomplete right bundle branch block Left anterior fascicular block Moderate voltage criteria for LVH, may be normal variant ( R in aVL , [place] product ) T wave abnormality, consider inferior [...] last 24 to 72 hours., Routine 1333 ([facility] Hold - Provider: Admin Adt - Reason: Transfer to a Procedural area)1548 ([facility] Unhold - Provider: Admin Adt) sodium chloride 0.9 % (flush) (BD PosiFlush Normal Saline 0.9) flush 5-20 mL 5-20 mL, Intravenous, EVERY 1 MIN PRN, Starting on 10/30/23 at 2208, Until Amna 11/03/23 at 1913, flush, Flush pertains to all indwelling lines. Flush per protocol found in the job aid using the link provided on this medication record., Routine 1333 ([facility] Hold - Provider: Admin Adt - Reason: Transfer to a Procedural area)1548 ([facility] Unhold - Provider: Admin Adt) documented in this encounter Additional Health Concerns Infection Onset Date Last Indicated Resolved Time Rule Out Respiratory 11/02/2023 11/02/2023 024 12:22 PM EDT Rule Out COVID-19 11/02/2023 11/02/2023 11/02/2023 12:22 PM EDT documented as of this encounter Care Teams Digital Field Service Technician Relationship Specialty Start Date End Date Rosie Mathews MD [address] [place] [address] PCP - General Family Medicine 11/25/17 11/23/23 documented as of this encounter
--- OUTSIDE RECORDS SUMMARY | 2024-03-15 08:30 | XMS_ITS | Encounter Summary ---
Author Organization Formerly [facility], [facility] Address [facility] [place] [address] Care Team Providers Care Cbx Operator Name Role Phone Masood Pierson MD Primary Care Provider [phone] Encounter Details Date Type Department Care Team (Late st Contact Info) Description 02/24/2024 External Results Transfer Center [facility] [place] [phone] Social History Tobacco Use Types Packs/Day Years Used Date Smoking Tobacco: Former Smokeless Tobacco: Never Alcohol Use Standard Drinks/Week Comments Not Currently 0 (1 standard drink = 0.6 oz pur e alcohol) [facility] Utilities Answer Date Recorded In the past 12 months has [employer], gas, oil, or water [employer] threatened to shut off services in your [...] AM EDT Office Visit Cardiology at [address] [place] [address] Izaiah Meyer MD [facility] [place] [address] documented as of this encounter Procedures Procedure Name Priority Date/Time Associated Diagnosis Comments MISC EXTERNAL CARDIOLOGY RESULT Routine 02/24/2024 11:10 PM EDT documented in this encounter Results * External Cardiology Result (02/24/2024 11:10 PM EDT) Anatomical Region Laterality Modality Other Historical Provider EXTERNAL CARDIOLO GY RESULT documented in this encounter Visit Diagnoses Not on filedocumented in this encounter Care Teams Cbx Operator Relationship Specialty Start Date End Date Masood Pierson MD [address] [place] [address] PCP - General Family Medicine 11/24/23 documented as of this encounter
--- OUTSIDE RECORDS SUMMARY | 2024-03-15 08:30 | XMS_ITS | Encounter Summary ---
Author Organization [facility] Address [facility] [place] [address] Care Team Providers Care Dough Raiser Name Role Phone Rosie Mathews MD Primary Care Provider [phone] Encounter Details Date Type Department Care Team (Late st Contact Info) Description 11/18/2023 Telephone Cardiology at [address] [phone] Cheryl Guzman MD [facility] [place] [address] Social History Tobacco Use Types Packs/Day Years Used Date Smoking Tobacco: Former Smokeless Tobacco: Never Alcohol Use Standard Drinks/Week Comments Not Currently 0 (1 standard drink = 0.6 oz pur e alcohol) [facility] Utilities Answer Date Recorded In the past 12 months has e electric, gas, oil, or water [employer] threatened to shut off services in your [...] [place] Past Medical History: HTN HLD NSTEMI ([facility] 11/02, status-post revasc) Presenting Symptoms per OSH: Lyla Goodrich is a 83 y.o. woman who presents to [facility] [place] with an episode of chest pain. Recent admission to [facility] with NSTEMI status-post PCI to the prox-RCA [...] today's values. 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 Recommend admission for observation to assess for [...] AM EDT Office Visit Cardiology at [address] [phone] Izaiah Meyer MD [facility] [place] [address] documented as of this encounter Visit Diagnoses Not on filedocumented in this encounter Care Teams Dough Raiser Relationship Specialty Start Date End Date Rosie Mathews MD [address] [place] [address] PCP - General Family Medicine 11/25/17 11/23/23 documented as of this encounter
--- OUTSIDE RECORDS SUMMARY | 2024-03-15 08:30 | XMS_ITS | Encounter Summary ---
Author Organization Formerly [facility] Address [facility] [place] [address] Care Team Providers Care Flight Test Data Acquisition Technician Name Role Phone Masood Pierson MD Primary Care Provider [phone] Reason for Visit * Reason Comments Establish Care Coronary Artery Disease Encounter Details Date Type Department Care Team (Latest Contact Info) Description 11/24/2023 10:40 AM EDT Office Visit Cardiology at [address] [place] [address] Izaiah Meyer MD [facility] [place] [address] ASCVD (arteriosclerotic cardiovascular disease); Cardiomyopathy, ischemic; Ascending [...] y.o. female. HPI: 83 f [facility]. She has a [...] rehab. [facility] SBP very well controlled at [...] AM EDT Office Visit Cardiology at [address] [place] [phone] Izaiah Meyer MD [facility] [place] [address] documented as of this encounter Visit Diagnoses Diagnosis ASCVD (arteriosclerotic cardiovascular disease) Unspecified cardiovascular disease Cardiomyopathy, ischemic Other specified forms of chronic ischemic heart disease Ascending aorta dilatation Thoracic aortic ectasia Hyperpiesia Unspecified essential hypertension documented in this encounter Care Teams Flight Test Data Acquisition Technician Relationship Specialty Start Date End Date Masood Pierson MD [address] [place] [address] PCP - General Family Medicine 11/24/23 documented as of this encounter
--- OUTSIDE RECORDS SUMMARY | 2024-03-15 08:30 | XMS_ITS | Encounter Summary ---
Author Organization [facility] Address [facility] [place] [address] Care Team Providers Care Benefits Officer Name Role Phone Rosie Mathews MD Primary Care Provider [phone] Reason for Visit * Reason Onset Date Comments Referral 11/03/2023 Coronary Artery Disease 11/03/2023 Encounter Details Date Type Department Care Team (Late st Contact Info) Description 11/03/2023 Telephone Cardiology at [address] [address] Andressa Machado, industrial waste treatment technician; Coronary Artery Disease Social History Tobacco Use Types Packs/Day Years Used Date Smoking Tobacco: Former Smokeless Tobacco: Never Alcohol Use Standard Drinks/Week Comments Not Currently 0 (1 standard drink = 0.6 oz pur e alcohol) [facility] Utilities Answer Date Recorded In the past 12 months has e [employer], gas, oil, or water [employer] threatened to shut off services in [...] in a prison (including now)? No 11/01/2023 IPV Inpatient Questions [...] [facility] [address] [place] [phone] Lyla was referred to this Cardiology clinic in [place] for post cardiac cath 10/31 for STEMI follow up as part of her discharge plan [place] [facility] documented in this encounter Plan of Treatment Upcoming Encounters Date Type Department Care Team (Late st Contact Info) Description 03/29/2024 11:20 AM EDT Office Visit Cardiology at [address] [place] [address] Izaiah Meyer MD [facility] [place] [address] documented as of this encounter Visit Diagnoses Not on filedocumented in this encounter Care Teams Benefits Officer Relationship Specialty Start Date End Date Rosie Mathews MD [address] [place] [address] PCP - General Family Medicine 11/25/17 11/23/23 documented as of this encounter
--- OUTSIDE RECORDS SUMMARY | 2024-03-15 08:30 | XMS_ITS | Encounter Summary ---
Author Organization [facility] Address [facility] [place] [address] Care Team Providers Care Winter Sports Manager Name Role Phone Masood Pierson MD Primary Care Provider [phone] Encounter Details Date Type Department Care Team (Late st Contact Info) Description 02/27/2024 Telephone Cardiology at [address] [place] [address] Izaiah Meyer MD [facility] [place] [address] Social History Tobacco Use Types Packs/Day Years Used Date Smoking Tobacco: Former Smokeless Tobacco: Never Alcohol Use Standard Drinks/Week Comments Not Currently 0 (1 standard drink = 0.6 oz pur e alcohol) [facility] Utilities Answer Date Recorded In the past 12 months has [employer] electric, gas, oil, or water [employer] threatened to shut off services in your [...] 3:30 PM EDT Lyla was [facility] for chest pain and returned to the ED Tuesday for back pain.Per patient both times it was determined she was having no cardiac issues but she was told to let her edge sawyer know. At present she is not having [...] AM EDT Office Visit Cardiology at [address] [phone] Izaiah Meyer MD [facility] [place] [address] documented as of this encounter Visit Diagnoses Not on filedocumented in this encounter Care Teams Winter Sports Manager Relationship Specialty Start Date End Date Masood Pierson MD [address] [place] [address] PCP - General Family Medicine 11/24/23 documented as of this encounter
--- OUTSIDE RECORDS SUMMARY | 2024-03-15 08:31 | XMS_ITS | Encounter Summary ---
Author Organization [facility] [place] [address] Care Team Providers Care Skin Grader Name Role Phone Rosie Mathews MD Primary Care Provider [phone] Reason for Visit * Auth/Cert (Routine) Specialty Diagnoses / Procedures Referred By Contac t Referred To Contact Diagnoses Unstable angina Chest pain NSTEMI Procedures CARDIAC CATHETERIZATION Rosa Dewey MD [facility] [place] [address] [place] [address] [facility] Referral ID Status Reason Start Date Expiration Date Visits Re quested Visits Authorized [id number] 1 1 Encounter Details Date Type Department Care Team (Late st Contact Info) Description 10/30/2023 4:25 PM EDT - 10/30/2023 5:27 PM EDT [place] [address] Rosa Dewey MD [facility] [address] [place], [place] [id number] CARDIAC CATHETERIZATION Social History Tobacco Use Types Packs/Day Years Used Date Smoking Tobacco: Former Smokeless Tobacco: Never Alcohol Use Standard Drinks/Week Comments Not Currently 0 (1 standard drink = 0.6 oz pur e alcohol) [facility] Inpatient Questions Answer Date Recorded Does [...] for hypertension and hyperlipidemia who presented to [facility] as a transfer from [facility] as a possible STEMI alert with acute onset chest pain. The patient reports that her symptoms initially began on Tuesday when she was walking to [facility] and experienced bilateral arm heaviness while walking with no other symptoms. Then, this afternoon shereports developing bilateral achy shoulder pain and nonradiating substernal left-sided chest pressure that was 7/10 in severity after coming home from caodaism. The patient denies any associated fevers, chills, [...] on repeat, her JAMIE resolved. Cardiology at [facility] was consulted for transfer; the patient was loaded with aspirin 324 mg and ticagrelor 180 mg, started on a heparin drip, and given nitroglycerin with improvement in chest pain. Upon arrival to [facility], the patient was taken directly to the Third Grade Teacher. Two lesions were discovered: one in the prox RCA (felt to almost be a SCHEDULING CLERK but they were able to wire, balloon, [...] dose administered prior to arrival in the chemical laboratory tester. Recommended anti-platelet/anti-thrombotic regimen: Continue aspirin 81 mg [...] and low lung volumes. Findings similar to director emergency services radiograph from CT 10/30/2023. Pending Studies and [...] 10:40 AM Izaiah Meyer MD Cardiology at [place] Arrive at: [facility] [address] [phone] Future Orders Complete By Expires Referral to Cardiac Rehab [[id number] Custom] As directed Process Instructions: If no progress note charted, please enter Clinical details in comments. Scheduling Instructions: Questions: My question or request is: STEMI. Cardiac rehab at [facility]. Referral to Home Health [[id number] Custom] As directed Process Instructions: If no progress note charted, please enter Clinical details in comments. Scheduling Instructions: Comments: Please evaluate Adin Santos for admission to Home Health. [address] [place] [address] [place] [phone] (home) Date of : 1940 Inpatient DOCUMENTATION FOR VNA SERVICES (INCLUDING THOSE PATIENTS WITH MEDICARE COVERAGE REQUIRING HOME VNA SERVICES AND/OR HOSPICE SERVICES) PATIENT'S LOCATION: Adin Santos [address] [facility] [phone] (home) Cell: Telephone Information: Mri Assistant's Name: self In discussion with the attending physician, it is certified that this patient is under their care and that they, or a Nurse Practitioner, Clinical Nurse specialist or Physician Cisco Network Architect who is working directly with them, had [...] health issues HOME HEALTH CARE AGENCY: [facility] [address] [place] [address] START OF CARE: within 24-48 hours of [...] 185 / [facility] [address] . All A agencies which cover the [...] MD / Dr. Masood Pierson [address] [place] [address] 11/09/23 1:55 PM arrival for 2:10 PM appointment Policy Intern: Izaiah Meyer MD [address] [place] [address] , 11/24/2023 10:40 AM Your Inpatient Medical Team at [facility] Name(s) of your inpatient provider(s): Attending physician: Rosa Hugo MD Resident physicians: Emile Robles MD; Elmer Tamez MD If you have non-emergent questions, prior to your follow-up visit call: Tuesday-Tuesday between the hours of 8AM-5PM please call the Cardiology Clinic [phone] to speak with a nurse. All other hours please call the Hospital Rubber Tire And Tubes Supervisor [phone] and ask to speak to the deputy united [place] marshal on-call. Your Primary Care Provider Rosie Mathews MD [phone] For questions regarding this document or issues relating to this hospitalization on the Medical Service, please contact your inpatient physician through the [facility] Rubber Tire And Tubes Supervisor . Issues afterhours and on weekends will be handled by the Policy Intern staff on-call. Associated attestation - Rosa Hugo [...] MD / Dr. Masood Pierson [address] [place] [address] 11/09/23 1:55 PM arrival for 2:10 PM appointment Policy Intern: Izaiah Meyer MD [address] [place] [address] , 11/24/2023 10:40 AM Your Inpatient Medical Team at [facility] Name(s) of your inpatient provider(s): Attending physician: Rosa Hugo MD Resident physicians: Emile Robles MD; Elmer Tamez MD If you have non-emergent questions, prior to your follow-up visit call: Tuesday-Tuesday between the hours of 8AM-5PM please call the Cardiology Clinic [phone] to speak with a nurse. All other hours please call the Hospital Rubber Tire And Tubes Supervisor [phone] and ask to speak to the deputy united states marshal on-call. Your Primary Care Provider Rosie Mathews MD [phone] documented in this encounter Medications at Time [...] for hypertension and hyperlipidemia who presented to [facility] as a transfer from [facility] [...] for hypertension and hyperlipidemia who presented to [facility] as a transfer from [facility] [...] Resident on Cardiology Service Cardiology S1 (Pager [phone]) Note written in conjunction with Claudio Perla [facility] Medical Student, MS3 Associated attestation - [...] Nirmala Webb - 11/01/2023 11:25 AM EDT Geophysical Party Chief Encounter Note Patient Name: Adin Santos : [id number] MR#: [id number] Admit Date: 10/30/2023 5:11 PM Hospital Day 2 days Narrative: Self initiated visit to patient for Spiritual support in a regular unit rounds. Assessment: Patient is in the bathroom at the time of this visit. Not a good time for Portrait Photographer visit. Intervention and Outcome: An attempted visit [...] for hypertension and hyperlipidemia who presented to [facility] as a transfer from [facility] [...] and low lung volumes. Findings similar to director emergency services radiograph from CT 10/30/2023. Scheduled Medications: [MAR [...] for hypertension and hyperlipidemia who presented to [facility] as a transfer from [facility] [...] Resident on Cardiology Service Cardiology S1 (Pager [phone]) Note written in conjunction with Claudio Perla [facility] Medical Student, MS3 Associated attestation - [...] for hypertension and hyperlipidemia who presented to [facility] as a transfer from [facility] as a possible STEMI alert with acute onset chest pain. Active Problems: Active Hospital Problems Diagnosis Unstable angina Resolved Hospital Problems No resolved problems to display. 24 hr events: - Cath'd yesterday with lesion in the proximal RCA (initially thought it was SCHEDULING CLERK but they were ableto wire, balloon and [...] and low lung volumes. Findings similar to director emergency services radiograph from CT 10/30/2023. TTE (10/30): Interpretation [...] for hypertension and hyperlipidemia who presented to [facility] as a transfer from [facility] [...] Resident on Cardiology Service Cardiology S1 (Pager [phone]) Note written in conjunction with Claudio Perla [facility] Medical Student, MS3 Associated attestation - [...] PCP: Rosie Mathews MD PCP phone number: [phone] Date of Admission: 10/30/2023 ( Hospital Day 0 days ) Attending:Rosa Cornejo MD ID: Adin Santos is a 83 y.o. female PMH significant for hypertension and hyperlipidemia who presented to [facility] as a transfer from [facility] as a possible STEMI alert with acute onset chest pain. The patient reports that her symptoms initially began on Tuesday when she was walking to [facility] and experienced bilateral arm heaviness while walking with no other symptoms. Then, this afternoon shereports developing bilateral achy shoulder pain and nonradiating substernal left-sided chest pressure that was 7/10 in severity after coming home from caodaism. The patient denies any associated fevers, chills, [...] with inferior JAMIE, although on repeat, her JAIME resolved. Cardiology at [facility] was consulted for transfer; the patient was loaded with aspirin 324 mg and ticagrelor 180 mg, started on a heparin drip, and given nitroglycerin with improvement in chest pain. Upon arrival to [facility], the patient was taken directly to the Third Grade Teacher. Two lesions were discovered: one in the prox RCA (felt to almost be a SCHEDULING CLERK but they were able to wire, balloon, [...] and low lung volumes. Findings similar to director emergency services radiograph from CT 10/30/2023. Assessment & Plan: Adin Santos is a 83 y.o. female PMH significant for hypertension and hyperlipidemia who presented to [facility] as a transfer from [facility] [...] with HTN HLD transferred with chest from [facility]. BP 217/68, HR 71 EKG with [...] information for follow-up Home Health & Hospice, [place] [address] TANESHA BOYCE confirmed with Brittany CARVAJAL that they will see the patient within 24-48 hours of discharge for start of care. Transportation: family or friend will provide Wheelchair van/Ambulance? No Functional status prior to admission: Assistive Equipment Home Environment: Others in the home: alone. Current Living Arrangements: home/apartment/condo. Accessibility Concerns:1st floor apartment in [facility] [place]; handicapped accessible. Current Functional Ability: Assistive [...] in the room. Electrolytes replaced, see MAR. mobile home laborer sites remained C/D/I with baseline ecchymosis unchanged. Pt complained of back pain, lidocaine patch given. Right IV infiltrated during infusion, patient is marked with sharpie, IV removed. See flowsheet for I+O's and safety rounding. Patient is able to make needs known and call capps within reach. PLAN MOVING FORWARD: Monitor Tele, control BP, monitor chemical laboratory tester sites, D/C Planning INDIVIDUALIZED FALL PREVENTION INTERVENTIONS: [...] in an outpatient cardiac rehabilitation program at [facility] was discussed. Patient agrees to a [...] and above on RA. PT went to chemical laboratory tester today. Left fem site oozed throughout shift, [...] MOVING FORWARD: Monitor Tele, control BP, monitor chemical laboratory tester sites, D/C Planning INDIVIDUALIZED FALL PREVENTION INTERVENTIONS: [...] Admitted From: Transfer from another hospital Location: [facility] Reason for Hospitalization: chest pain Covid Vaccination Status: 1st, 2nd & booster Past medical History: No past medical history on file. Hospitalizations Within the Past 30 Days: no previous admission in last 30 days Current Decision-Making Capacity: Self If AD's have not been completed the following surrogate would be surrogate decision maker per [place] surrogate decision making law. (Only good for 180 days) Any patient receiving care in [place] must abide by [place] law. The hierarchy for surrogate decision making [...] Arrangements: home/apartment/condo. Accessibility Concerns:1st floor apartment in [facility] [place]; handicapped accessible. In the last 12 [...] has the electric, gas, oil, or water [employer] threatened to shut off services in [...] toilet seat Home Address confirmed as: [address] [facility] [address] Social & Family Supports: All names listed below confirmed with patient as current and correct Extended Emergency Contact Information Primary Emergency Contact: Iris Downing Address: [address], [place] [id number] [place] [address] Mobile Relation: Child Secondary Emergency Contact: Karen More Address: [address] Mobile Relation: Child Current Care Provided by: self Provides Primary Care For: no one Caregiver if needed: child(emmanuel), adult Quality of Family relationships: involved, supportive Community Resources being provided currently: other (see comments) (receives [facility] services at home (1xweekly)) [...] Insurance: N/A Prescription Coverage: Yes Preferred Pharmacy: [facility] [place], [place] - [address] [place] [address] [place] [address] [place] Status: Patient is a : No Primary Care Provider listed: Masood Pierson MD [phone] Patient/Caregiver Goals of Treatment: home when MR Potential Needs for Transition of Care: home health care Agency Referrals: Not Applicable I have met with the patient to: discuss discharge planning needs. provide the [facility], Office of Care Management letter from the Litigation Counsel pertaining to rehab referrals. provide a letter describing our affiliations within the [facility] and educate about their right to choose where referrals are sent. provide a list of Home Health Agencies / Durable Medical Equipment vendors which serve their preferred geographic area. provided patient with CMS Star Quality Rating handout. They have requested referrals to: [facility] [address] [place] [address] Note routed to a Rehabilitation Specialist who will communicate referrals to facilities [...] results. PO hydralazine added for BP control. mobile home laborer sites remain C/D/I, ecchymosis unchanged th roughout shift. See flowsheet for I+O's and safety rounding. Patient is able to make needs known and call capps within reach. PLAN MOVING FORWARD: Monitor Tele, control CP and BP, NPO at MD for cath, monitor chemical laboratory tester sites, D/C Planning INDIVIDUALIZED FALL PREVENTION INTERVENTIONS: [...] 11:20 AM EDT Office Visit Cardiology at [address] [phone] Izaiah Meyer MD [facility] [place] [address] Scheduled Referrals Name Type Priority Associated Diagnoses [...] Absolute 5.28 1.70 - 6.10 x10(3)/mc L [facility] Lymph % 15.2 % [facility] Lymphocytes Abs 1.3 0.9 - 3.2 x10(3)/mc L [facility] Monocyte % 16.9 % [facility] Monocyte Abs 1.4(H) 0.3 - 0.9 x10(3)/mc L [facility] Eos % 3.7 % [facility] Eosinophils Abs 0.3 0.0 - 0.4 x10(3)/mc L [facility] Basophil % 0.5 % [facility] Baso Absolute 0.0 0.0 - 0.1 x10(3)/mc L [facility] Immature Gran % 0.40 % [facility] Comment: Immature granulocytes(IG's)percentage and absolute count will include metamyelocytes, myelocytes, and promyelocytes. Blood smears from CBCs yielding IG's will be scanned manually for concordance. If this scan disagrees with the automated IG or if promyelocytes are noted, a manual differential will be performed. Immature Gran Absolute 0.03 0.00 - 0.04 x10(3)/mc L [facility] Blood 11/03/2023 3:46 AM EDT 11/03/2023 4:11 AM EDT Narrative Resulting Agency Comment Spec In Lab Qamar Gallardo MD HEMATOLOGY ORDERABLE S [facility] [place] [address] * (ABNORMAL) Hemogram (11/03/2023 3:46 AM EDT) White Blood Cell 8.3 4.0 - 9.5 x10(3)/[facility] Red Blood Cell 3.77(L) 4.00 - 5.21 x10(6)/[facility] Hemoglobin 13.1 11.7 - 15.5 g/dL [facility] Hematocrit 38.0 35.7 - 45.8 % [facility] Mean Cell Volume 100.8(H) 82.6 - 94.4 fL [facility] Mean Cell Hemoglobin 34.7(H) 27.1 - 32.0 pg [facility] Mean Cell Hemoglobin Concentration 34.5 31.7 - 35.0 g/dL [facility] Platelet 181 145 - 357 x10(3)/ L [facility] RDW Standard Deviation 54.7(H) 37.0 - 46.0 [facility] RDW coefficient of variation 14.6(H) 11.5 - 14.1 % [facility] Mean Platelet Volume 11.2 7.6 - 12.9 [facility] NRBC% auto 0.0 % [facility] NRBC Absolute 0.000 0.000 - 0.000 x10(3)/ L [facility] Blood 11/03/2023 3:46 AM EDT 11/03/2023 4:11 AM EDT Narrative Resulting Agency Comment Spec In Lab Qamar Gallardo MD HEMATOLOGY ORDERABLE S Performing Organization Address City/[facility]/ZIP Co de Phone Number [facility] [place] [address] * Phosphorus (11/03/2023 3:46 AM EDT) Phosphorus 3.2 2.5 - 4.5 mg/dL [facility] Comment:result rechecked-KS Blood 11/03/2023 3:46 AM EDT 11/03/2023 4:11 AM EDT Narrative Resulting Agency Comment Spec In Lab Rosa Cornejo MD CHEMISTRY ORDERABLE S Performing Organization Address [facility]/ZIP Co de Phone Number [facility] [place] [address] * Magnesium (11/03/2023 3:46 AM EDT) Magnesium 0.90 0.69 - 1.07 mmol/L [facility] Blood 11/03/2023 3:46 AM EDT 11/03/2023 4:11 AM EDT Narrative Resulting Agency Comment Spec In Lab Rosa Cornejo MD CHEMISTRY ORDERABLE S Performing Organization Address City/[facility]/ZIP Co de Phone Number [facility] [place] [address] * (ABNORMAL) Basic Metabolic Panel (non-fasting) (11/03/2023 3:46 AM EDT) Glucose 105 65 - 199 mg/dL [facility] Comment:Diabetes: >=200 mg/d L plus symptoms Blood Urea Nitrogen 13 8 - 18 mg/dL [facility] Creatinine 0.83 0.70 - 1.20 mg/dL [facility] Sodium 139 135 - 145 mmol/L [facility] Potassium 4.0 3.5 - 5.0 mmol/L [facility] Comment: Please note: ??Patients with WBC >100,000 may have falsely elevated Potassium levels. ??For accurate Potassium quantification in these patients send serum separator tube (gold top) for subsequent determinations. ??Contact the Clinical Chemistry Laboratory if there are any questions. Chloride 108(H) 98 - 107 mmol/L [facility] Carbon Dioxide 19(L) 22 - 31 mmol/L [facility] Anion Gap 12 5 - 15 mmol/L [facility] Calcium 8.2(L) 8.5 - 10.5 mg/dL [facility] Est Glomerular Filtration Rate 69 >=60 mL/min/1. 73 m?? [facility] Comment: This patient's [...] Lab Rosa Cornejo MD CHEMISTRY ORDERABLE S [facility] [place] [address] * EKG 12 Lead (11/02/2023 12:44 PM EDT) Ventricular rate 83 BPM MUSE SYSTEM Atrial Rate 83 BPM MUSE SYSTEM P-R Interval 216 ms MUSE SYSTEM QRS Duration 90 ms MUSE SYSTEM Q-T Interval 384 ms MUSE SYSTEM QTC Calculated (Bezet) 451 ms MUSE SYSTEM Calculated P [place] 92 degrees MUSE SYSTEM Calculated R [place] -51 degrees MUSE SYSTEM Calculated T [place] -33 degrees MUSE SYSTEM INTERPRETATION Sinus rhythm [...] specimen volume Bacteria, Urine Many(A) None /HPF [facility] Squamous Epithelial Cells Raw Data, Urine 10(H) <=4 /HPF [facility] Hyaline Casts, Urine 2 0 - 2 /LPF [facility] Comment: Interpret results with caution, microscopic results are from suboptimal specimen volume Clean Catch Urine 11/02/2023 11:40 AM EDT 11/02/2023 12:05 PM EDT Narrative Resulting Agency Comment Spec In Lab Elmer Tamez MD URINE ORDERABLES [facility] [place] [address] * (ABNORMAL) Urinalysis with reflex Culture (11/02/2023 11:40 AM EDT) Glucose, Urine Dipstick Negative Negative mg/dL [facility] Protein, Urine Dipstick 30(A) Negative mg/dL [facility] Bilirubin, Urine Dipstick Negative Negative mg/dL [facility] Comment: Clinical correlation required for positive Urine Bilirubin results as false positive may occur with some drugs and drug related products. If a false positive is suspected a serum total bilirubin should be considered if clinically indicated. Urobilinogen, Urine Dipstick Normal Normal mg/dL [facility] pH, Urn (dipstick) 5.5 5.0 - 8.0 [facility] Blood, Urine Dipstick Negative Negative mg/dL [facility] Ketone, Urine Dipstick Trace(A) Negative mg/dL [facility] Nitrite, Urine Dipstick Positive(A) Negative [facility] Leukocytes, Urine Dipstick Small(A) Negative [facility] Appearance, Urine Dipstick Cloudy(A) Clear [facility] Specific [place] Urine Automated >=1.030(A) 1.005 - 1.030 [facility] Color, Urine Dipstick Dark Yellow Yellow [facility] Reflex to Culture Yes [facility] Clean Catch Urine 11/02/2023 11:40 AM EDT 11/02/2023 12:04 PM EDT Narrative Resulting Agency Comment Spec In Lab Rosa Hugo MD URINE ORDERABLES [facility] [place] [address] * Respiratory Panel PCR (11/02/2023 10:15 AM EDT) Respiratory Panel Source RESIDENT PHYSICIAN Swab [facility] Respiratory Panel PCR Negative Negative [facility] Comment: Respiratory Panels are performed on the enavu, using multiplexed PCR nucleic acid detection. ??Negative results do not preclude respiratory infection and should not be used as the sole basis for diagnosis, treatment or other management decisions. Adenovirus Not Detected Not Detected [facility] Coronavirus HKU1 Not Detected Not Detected [facility] Coronavirus NL63 Not Detected Not Detected [facility] Coronavirus 229E Not Detected Not Detected [facility] Coronavirus OC43 Not Detected Not Detected [facility] SARS-CoV-2 Not Detected Not Detected [facility] Comment: Testing for SARS-CoV-2 (Severe acute respiratory syndrome coronavirus 2) to aid in the diagnosis of COVID-19 is performed using the Bio[employer] Respiratory Panel 2.1 (Modbook) as authorized by the FDA issued Emergency Use Authorization (EUA). This panel also tests for multiple other viral and bacterial pathogens. This assay is intended for In-vitro Diagnostic (IVD) use with nasopharyngeal swabs in viral transport media. The assay is performed based on the instructions for use and additional guidance provided by the FDA. Testing is performed in laboratories within the [facility], each of which is certified under [...] fact sheets at the following FDA website: https://www.fda.gov/medical-devices/pghnmfwfdjx-bqxwvic-6681-fjawm-22-bhuhskzlt- use-a zvzoypglvjcld-bmxysla-kmgjwrl/vheft-suspppzejof-ttkm Human Metapneumovirus Not Detected Not Detected [facility] Human Rhinovirus/Enterov irus Not Detected Not Detected [facility] Influenza A Not Detected Not Detected [facility] Influenza B Not Detected Not Detected [facility] Parainfluenza 1 Not Detected Not Detected [facility] Parainfluenza 2 Not Detected Not Detected [facility] Parainfluenza 3 Not Detected Not Detected [facility] Parainfluenza 4 Not Detected Not Detected [facility] Respiratory Syncytial Virus Not Detected Not Detected [facility] Chlamydophila pneumoniae Not Detected Not Detected [facility] Mycoplasma pneumoniae Not Detected Not Detected [facility] Nasopharyngeal Swab 11/02/19 10:15 AM EDT 11/02/2023 10:49 AM EDT Narrative Resulting Agency Comment Spec In Lab Rosa Hugo MD MICROBIOLOGY - GEN ERAL ORDERABLES [facility] [place] [address] * XR Chest One View (11/02/2023 2:51 AM EDT) WORKSTATION ID [id number] DH RAD Anatomical Region Laterality Modality Chest [...] signed by: Omaira Tran MD, [facility] ([phone]), at 11/02/2023 4:56 AM Narrative 11/02/2023 4:56 [...] signed by: Omaira Tran MD, [facility]([phone]), at 11/02/2023 4:56 AM Rosa Hugo MD IMG DX ORDERABLES * (ABNORMAL) Differential, Automated (11/02/2023 12:35 AM EDT) Neutrophil % 76.5 % [facility] Neutrophil Absolute 7.69(H) 1.70 - 6.10 x10(3)/mc L [facility] Lymph % 8.3 % [facility] Lymphocytes Abs 0.8(L) 0.9 - 3.2 x10(3)/mc L [facility] Monocyte % 12.9 % [facility] Monocyte Abs 1.3(H) 0.3 - 0.9 x10(3)/mc L [facility] Eos % 1.4 % [facility] Eosinophils Abs 0.1 0.0 - 0.4 x10(3)/mc L [facility] Basophil % 0.4 % [facility] Baso Absolute 0.0 0.0 - 0.1 x10(3)/mc L [facility] Immature Gran % 0.50 % [facility] Comment: Immature granulocytes(IG's)percentage and absolute count will include metamyelocytes, myelocytes, and promyelocytes. Blood smears from CBCs yielding IG's will be scanned manually for concordance. If this scan disagrees with the automated IG or if promyelocytes are noted, a manual differential will be performed. Immature Gran Absolute 0.05(H) 0.00 - 0.04 x10(3)/ L [facility] Blood 11/02/2023 12:3 5 AM EDT 11/02/2023 12:43 AM EDT Narrative Resulting Agency Comment Spec In Lab Qamar Gallardo MD HEMATOLOGY ORDERABLE S [facility] [place] [address] * (ABNORMAL) Hemogram (11/02/2023 12:35 AM EDT) White Blood Cell 10.0(H) 4.0 - 9.5 x10(3)/mc L [facility] Red Blood Cell 4.06 4.00 - 5.21 x10(6)/mc L [facility] Hemoglobin 13.8 11.7 - 15.5 g/dL [facility] Hematocrit 39.8 35.7 - 45.8 % [facility] Mean Cell Volume 98.0(H) 82.6 - 94.4 fL [facility] Mean Cell Hemoglobin 34.0(H) 27.1 - 32.0 pg [facility] Mean Cell Hemoglobin Concentration 34.7 31.7 - 35.0 g/dL [facility] Platelet 198 145 - 357 x10(3)/mc L [facility] RDW Standard Deviation 52.1(H) 37.0 - 46.0 fL [facility] RDW coefficient of variation 14.3(H) 11.5 - 14.1 % [facility] Mean Platelet Volume 11.4 7.6 - 12.9 fL [facility] NRBC% auto 0.0 % [facility] NRBC Absolute 0.000 0.000 - 0.000 x10(3)/mc L [facility] Blood 11/02/2023 12:3 5 AM EDT 11/02/2023 12:43 AM EDT Narrative Resulting Agency Comment Spec In Lab Qamar Gallardo MD HEMATOLOGY ORDERABLE S [facility] [place] [address] * (ABNORMAL) Phosphorus (11/02/2023 12:35 AM EDT) Phosphorus 1.6(L) 2.5 - 4.5 mg/dL [facility] Blood 11/02/2023 12:3 5 AM EDT 11/02/2023 12:43 AM EDT Narrative Resulting Agency Comment Spec In Lab Rosa Cornejo MD CHEMISTRY ORDERABLE S Performing Organization Address [facility]/ZIP Co de Phone Number [facility] [place] [address] * Magnesium (11/02/2023 12:35 AM EDT) Magnesium 0.87 0.69 - 1.07 mmol/L [facility] Blood 11/02/2023 12:3 5 AM EDT 11/02/2023 12:43 AM EDT Narrative Resulting Agency Comment Spec In Lab Rosa Cornejo MD CHEMISTRY ORDERABLE S Performing Organization Address City/[facility]/ZIP Co de Phone Number [facility] [place] [address] * Basic Metabolic Panel (non-fasting) (11/02/2023 12:35 AM EDT) Glucose 125 65 - 199 mg/dL [facility] Comment:Diabetes: >=200 mg/d L plus symptoms Blood Urea Nitrogen 9 8 - 18 mg/dL [facility] Creatinine 0.83 0.70 - 1.20 mg/dL [facility] Sodium 136 135 - 145 mmol/L [facility] Potassium 3.6 3.5 - 5.0 mmol/L [facility] Comment: Please note: ??Patients with WBC >100,000 may have falsely elevated Potassium levels. ??For accurate Potassium quantification in these patients send serum separator tube (gold top) for subsequent determinations. ??Contact the Clinical Chemistry Laboratory if there are any questions. Chloride 102 98 - 107 mmol/L [facility] Carbon Dioxide 25 22 - 31 mmol/L [facility] Anion Gap 9 5 - 15 mmol/L [facility] Calcium 9.0 8.5 - 10.5 mg/dL [facility] Est Glomerular Filtration Rate 69 >=60 mL/min/1. 73 m?? [facility] Comment: This patient's [...] Lab Rosa Cornejo MD CHEMISTRY ORDERABLE S [facility] [place] [address] * Blood culture (11/02/2023 12:35 AM EDT) Blood Culture No growth at 5 days. [facility] Blood 11/02/2023 12:3 5 AM EDT 11/02/2023 1:55 AM EDT Comment:#2 site ukn Narrative Resulting Agency Comment Spec In Lab Rosa Hugo MD MICROBIOLOGY - BLO OD ORDERABLES Performing Organization Address [facility] Co de Phone Number [facility] [place] [address] * Blood culture (11/02/2023 12:15 AM EDT) Blood Culture No growth at 5 days. [facility] Blood 11/02/2023 12:1 5 AM EDT 11/02/2023 1:54 AM EDT Comment:#1site unk Narrative Resulting Agency Comment Spec In Lab Rosa Hugo MD MICROBIOLOGY - BLO OD ORDERABLES Performing Organization Address [facility] Co de Phone Number [facility] [place] [address] * EKG 12 Lead (11/01/2023 10:10 PM EDT) Ventricular rate 139 BPM MUSE SYSTEM Atrial Rate 139 BPM MUSE SYSTEM P-R Interval 168 ms MUSE SYSTEM QRS Duration 84 ms MUSE SYSTEM Q-T Interval 286 ms MUSE SYSTEM QTC Calculated (Bezet) 435 ms MUSE SYSTEM Calculated R [place] -59 degrees MUSE SYSTEM Calculated T [place] -27 degrees MUSE SYSTEM INTERPRETATION Mid-RP tachycardia, consider sinus tachycardia or SVT Left axis deviation Moderate voltage criteria for LVH, may be normal variant ( R in aVL , Hi Hat product ) Inferior infarct (cited on or before 01-NOV-2023) Anterolateral infarct (cited on or before 01-NOV-2023) Abnormal ECG When compared with ECG of 01-NOV-2023 15:22, Vent. rate Although rate has increased Serial changes of Anterior infarct Present I personally reviewed the tracing and edited the fellows interpretation Confirmed by fellow MD Bowen Ashley ([id number]) on 11/04/2023 7:57:50 AM Confirmed by MD Carrillo Danette ([id number]) on 11/04/2023 4:32:03 PM MUSE SYSTEM 11/01/2023 10:1 0 PM EDT 11/04/2023 4:32 PM EDT Rosa Cornejo MD ECG ORDERABLES MUSE SYSTEM * (ABNORMAL) Hemogram (11/01/2023 10:06 PM EDT) White Blood Cell 10.4(H) 4.0 - 9.5 x10(3)/[facility] Red Blood Cell 4.11 4.00 - 5.21 x10(6)/[facility] Hemoglobin 14.0 11.7 - 15.5 g/dL [facility] Hematocrit 41.1 35.7 - 45.8 % [facility] Mean Cell Volume 100.0(H) 82.6 - 94.4 fL [facility] Mean Cell Hemoglobin 34.1(H) 27.1 - 32.0 pg [facility] Mean Cell Hemoglobin Concentration 34.1 31.7 - 35.0 g/dL [facility] Platelet 197 145 - 357 x10(3)/ L [facility] RDW Standard Deviation 54.0(H) 37.0 - 46.0 fL [facility] RDW coefficient of variation 14.6(H) 11.5 - 14.1 % [facility] Mean Platelet Volume 11.2 7.6 - 12.9 fL [facility] NRBC% auto 0.0 % [facility] NRBC Absolute 0.000 0.000 - 0.000 x10(3)/ L [facility] Blood 11/01/2023 10:0 6 PM EDT 11/01/2023 10:22 PM EDT Narrative Resulting Agency Comment Spec In Lab Rosa Hugo MD HEMATOLOGY ORDERAB LES Performing Organization Address City/[facility]/ZIP Co de Phone Number [facility] [place] [address] * POCT Glucose (11/01/2023 5:59 PM EDT) [facility] Signature Glucose, POC 104 65 - 199 mg/dL [facility] Comment: Supplemental ranges: <140 mg/dL before meals <180 mg/dL all other times of the day Blood 11/01/2023 5:59 PM EDT 11/01/2023 5:59 PM EDT Rosa Hugo MD POINT OF CARE TEST ORDERABLES Performing Organization Address [facility] Co de Phone Number [facility] [place] [address] * POCT Glucose (11/01/2023 5:35 PM EDT) [facility] Glucose, POC 85 65 - 199 mg/dL [facility] Comment: Supplemental ranges: <140 mg/dL before meals <180 mg/dL all other times of the day Blood 11/01/2023 5:35 PM EDT 11/01/2023 5:35 PM EDT Rosa Hugo MD POINT OF CARE TEST ORDERABLES Performing Organization Address City/[facility] Co de Phone Number [facility] [place] [address] * EKG 12 Lead (11/01/2023 3:22 PM EDT) Ventricular rate 59 BPM MUSE SYSTEM Atrial Rate 59 BPM MUSE SYSTEM P-R Interval 220 ms MUSE SYSTEM QRS Duration 94 ms MUSE SYSTEM Q-T Interval 428 ms MUSE SYSTEM QTC Calculated (Bezet) 423 ms MUSE SYSTEM Calculated P [place] 76 degrees MUSE SYSTEM Calculated R [place] -50 degrees MUSE SYSTEM Calculated T [place] -59 degrees MUSE SYSTEM INTERPRETATION Sinus bradycardia [...] Other Narrative 11/02/2023 4:57 PM EDT ?[facility] ? Cardiac Catheterization/Intervention Report ? Patient Name: Adin Santos ? Procedure Date: 11/01/2023 ? A #: [id number] ? Primary Physician: Rosa Dewey I ? Case #: [id number] ? File Name: [id number] ? Catheterization Order Number: [id number] ? [facility] ? Final Report [place], [place] ? Patient Name: ? Adin M. Goguen ?ID#: ?[id number] ? : ?1940 ? Procedure Date: ? [...] procedure was Urgent. The indication for ?the chemical laboratory tester visit is ACS greater than 24 hrs. [...] ??A premounted ? 3.50 x 15 mm [place] Lin[place] (RADHA) was deployed with a maximum ? [...] A premounted 3.50 x 15 mm [place] Linwood (RADHA) was deployed ? with a maximum [...] dose administered prior to arrival in the chemical laboratory tester. ?Recommended anti-platelet/anti-thrombotic regimen: ?Continue aspirin 81 mg daily for indefinitely. ?Continue clopidogrel 75 mg daily for 12 months then stop. ?These recommendations are made at the time of the intervention. Patient ?and provider preferences or a changing clinical situation may require ?modification of this regimen. Consult [facility] Interventional Cardiology for ?questions. ?The [...] Note Rosa Dewey MD - 12/12/2023 [facility] Cardiac Catheterization/Intervention Report Patient Name: Adin Santos Procedure Date: 11/01/2023 A #: [id number] Primary Physician: Rosa Dewey I Case #: [id number] File Name: [id number] Catheterization Order Number: [id number] [facility] FinalReport [place], [place] Patient Name: Adin Santos ID#:[id number] :1940 Procedure Date: November 01, 2023 Case [...] was designated as ASA Class III. [facility]: Vulnerable. Diagnostic Tests: Prior Coronary Angiography: LV ejection fraction within 6 months is 65%. Electrocardiography: EKG was assessed by ECG. EKG was Abnormal. EKG showed other abnormality. Medications Prior to Procedure: Aspirin, Angiotensin II Receptor Rodrick and Statin. Indications for Diagnostic Cath: The priority of the diagnostic procedure was Urgent. The indicationfor the chemical laboratory tester visit is ACS greater than 24 hrs. [...] 14 atmospheres. Apremounted 3.50 x 15 mm [place] Lin[place] (RADHA) was deployed with amaximum inflation pressure [...] The lesion was predilated with a 3.00mm [id number] MM balloon with a maximum inflation pressure of 14atmospheres. A premounted 3.50 x 15 mm [place] Lin[place] (RADHA) wasdeployed with a maximum inflation pressure [...] dose administered prior to arrival in the chemical laboratory tester. Recommended anti-platelet/anti-thrombotic regimen: Continue aspirin 81 mg daily for indefinitely. Continue clopidogrel 75 mg daily for 12 months then stop. These recommendations are made at the time of the intervention.Patient and provider preferences or a changing clinical situation mayrequire modification of this regimen. Consult [facility] Interventional Cardiologyfor questions. The 1 [...] * POCT Glucose (11/01/2023 7:06 AM EDT) [facility] Glucose, POC 93 65 - 199 mg/dL [facility] Comment: Supplemental ranges: <140 mg/dL before meals <180 mg/dL all other times of the day Blood 11/01/2023 7:06 AM EDT 11/01/2023 7:06 AM EDT Jean Laboy MD POINT OF CARE TEST O RDERABLES [facility] [place] [address] * (ABNORMAL) Differential, Automated (11/01/2023 3:09 AM EDT) Pathologist [facility] Neutrophil % 63.9 % [facility] Neutrophil Absolute 5.54 1.70 - 6.10 x10(3)/mc L [facility] Lymph % 20.0 % [facility] Lymphocytes Abs 1.7 0.9 - 3.2 x10(3)/mc L [facility] Monocyte % 11.9 % [facility] Monocyte Abs 1.0(H) 0.3 - 0.9 x10(3)/mc L [facility] Eos % 3.2 % [facility] Eosinophils Abs 0.3 0.0 - 0.4 x10(3)/ L [facility] Basophil % 0.5 % [facility] Baso Absolute 0.0 0.0 - 0.1 x10(3)/ L [facility] Immature Gran % 0.50 % [facility] Comment: Immature granulocytes(IG's)percentage and absolute count will include metamyelocytes, myelocytes, and promyelocytes. Blood smears from CBCs yielding IG's will be scanned manually for concordance. If this scan disagrees with the automated IG or if promyelocytes are noted, a manual differential will be performed. Immature Gran Absolute 0.04 0.00 - 0.04 x10(3)/ L [facility] Blood 11/01/2023 3:09 AM EDT 11/01/2023 3:29 AM EDT Narrative Resulting Agency Comment Spec In Lab Qamar Gallardo MD HEMATOLOGY ORDERABLE S Performing Organization Address City/State/[facility] Co de Phone Number [facility] [place] [address] * (ABNORMAL) Hemogram (11/01/2023 3:09 AM EDT) White Blood Cell 8.7 4.0 - 9.5 x10(3)/ L [facility] Red Blood Cell 3.72(L) 4.00 - 5.21 x10(6)/mc L [facility] Hemoglobin 12.5 11.7 - 15.5 g/dL [facility] Hematocrit 36.8 35.7 - 45.8 % [facility] Mean Cell Volume 98.9(H) 82.6 - 94.4 fL [facility] Mean Cell Hemoglobin 33.6(H) 27.1 - 32.0 pg [facility] Mean Cell Hemoglobin Concentration 34.0 31.7 - 35.0 g/dL [facility] Platelet 184 145 - 357 x10(3)/mc L [facility] RDW Standard Deviation 53.5(H) 37.0 - 46.0 fL [facility] RDW coefficient of variation 14.6(H) 11.5 - 14.1 % [facility] Mean Platelet Volume 11.3 7.6 - 12.9 fL [facility] NRBC% auto 0.0 % [facility] NRBC Absolute 0.000 0.000 - 0.000 x10(3)/mc L [facility] Blood 11/01/2023 3:09 AM EDT 11/01/2023 3:29 AM EDT Narrative Resulting Agency Comment Spec In Lab Qamar Gallardo MD HEMATOLOGY ORDERABLE S Performing Organization Address City/[facility]/ZIP Co de Phone Number [facility] [place] [address] * Phosphorus (11/01/2023 3:09 AM EDT) Phosphorus 2.5 2.5 - 4.5 mg/dL [facility] Blood 11/01/2023 3:09 AM EDT 11/01/2023 3:29 AM EDT Narrative Resulting Agency Comment Spec In Lab Rosa Cornejo MD CHEMISTRY ORDERABLE S Performing Organization Address City/[facility]/ZIP Co de Phone Number [facility] [place] [address] * Magnesium (11/01/2023 3:09 AM EDT) Magnesium 0.82 0.69 - 1.07 mmol/L [facility] Blood 11/01/2023 3:09 AM EDT 11/01/2023 3:29 AM EDT Narrative Resulting Agency Comment Spec In Lab Rosa Cornejo MD CHEMISTRY ORDERABLE S [facility] [place] [address] * (ABNORMAL) Basic Metabolic Panel (non-fasting) (11/01/2023 3:09 AM EDT) Glucose 100 65 - 199 mg/dL [facility] Comment:Diabetes: >=200 mg/d L plus symptoms Blood Urea Nitrogen 14 8 - 18 mg/dL [facility] Creatinine 0.83 0.70 - 1.20 mg/dL [facility] Sodium 137 135 - 145 mmol/L [facility] Potassium 3.4(L) 3.5 - 5.0 mmol/L [facility] Comment: Please note: ??Patients with WBC >100,000 may have falsely elevated Potassium levels. ??For accurate Potassium quantification in these patients send serum separator tube (gold top) for subsequent determinations. ??Contact the Clinical Chemistry Laboratory if there are any questions. Chloride 105 98 - 107 mmol/L [facility] Carbon Dioxide 24 22 - 31 mmol/L [facility] Anion Gap 8 5 - 15 mmol/L [facility] Calcium 8.6 8.5 - 10.5 mg/dL [facility] Est Glomerular Filtration Rate 69 >=60 mL/min/1. 73 m?? [facility] Comment: This patient's [...] Lab Rosa Cornejo MD CHEMISTRY ORDERABLE S [facility] [place] [address] * (ABNORMAL) Troponin (10/31/2023 2:46 PM EDT) Troponin-T, High Sensitivity 544(H) <=14 ng/L [facility] Comment: This patient's [...] value can be found in the [facility] Test Catalog Troponin - [facility] Test Catalog Reference: Fourth [place] Definition of Myocardial Infarction. Journal of the [place] [employer] 2018;72:5469-7946 Blood 10/31/2023 2:46 PM EDT 10/31/2023 2:55 PM EDT Narrative Resulting Agency Comment Spec In Lab Jean Laboy MD CHEMISTRY ORDERABLES Performing Organization Address [facility] Co de Phone Number [facility] [place] [address] * EKG 12 Lead (10/31/2023 1:07 PM EDT) Ventricular rate 54 BPM MUSE SYSTEM Atrial Rate 54 BPM MUSE SYSTEM P-R Interval 218 ms MUSE SYSTEM QRS Duration 92 ms MUSE SYSTEM Q-T Interval 540 ms MUSE SYSTEM QTC Calculated (Bezet) 512 ms MUSE SYSTEM Calculated P [place] 85 degrees MUSE SYSTEM Calculated R [place] -44 degrees MUSE SYSTEM Calculated T [place] -69 degrees MUSE SYSTEM INTERPRETATION Sinus bradycardia [...] Cornejo MD ECG ORDERABLES Performing Organization Address [facility] Co de Phone Number MUSE SYSTEM * (ABNORMAL) Troponin (10/31/2023 11:37 AM EDT) Pathologist [facility] Troponin-T, High Sensitivity 580(H) <=14 ng/L [facility] Comment: This patient's [...] value can be found in the [facility] Test Catalog Troponin - [facility] Test Catalog Reference: Fourth [place] Definition of Myocardial Infarction. Journal of the [place] [employer] 2018;72:0435-6924 Blood 10/31/2023 11:3 7 AM EDT 10/31/2023 11:50 AM EDT Narrative Resulting Agency Comment Spec In Lab Rosa Cornejo MD CHEMISTRY ORDERABLE S [facility] [place] [address] * ECHO COMPLETE (10/31/2023 8:52 AM EDT) Anatomical Region Laterality Modality Cardiac Other 10/31/2023 7:57 AM EDT Narrative 10/31/2023 9:45 AM EDT [address] [place] [address] ? Echocardiogram Report Name: ADIN SANTOS ? Study Date: 10/31/2023 07:57 AMBP: 106/76 mmHg ? Patient Location: [facility] 0[facility] A : 1940 ? Height: 163 cm ? Account: [id number] Age: 83 yrs ? Weight: 76 kg [...] is no prior echocardiogram for comparison. Procedure Complete-35434. Satisfactory quality. There is sinus bradycardia. Left [...] Note Edgard Wang MD - 10/31/2023 [address] [place] [id number] Echocardiogram Report Name: TREY SANTOSMarco A Catherine Study Date: 407:57 AMBP: 106/76 mmHg Patient Location: [address] : 1940 Height: 163 cm Account: [id number] Age: 83 yrs Weight: 76 kg Gender: [...] is no prior echocardiogram for comparison. Procedure Complete-23927. Satisfactory quality. There is sinus bradycardia. Left [...] EDT) Troponin-T, High Sensitivity 571(H) <=14 ng/L [facility] Comment: This patient's [...] value can be found in the [facility] Test Catalog Troponin - [facility] Test Catalog Reference: Fourth [place] Definition of Myocardial Infarction. Journal of the [place] [employer] 2018;72:2497-9362 Blood 10/31/2023 8:51 AM EDT 10/31/2023 9:12 AM EDT Narrative Resulting Agency Comment Spec In Lab Rosa Cornejo MD CHEMISTRY ORDERABLE S Performing Organization Address City/State/[facility] Co de Phone Number [facility] [place] [address] * CARDIAC CATHETERIZATION (10/31/2023 8:10 AM EDT) Anatomical Region Laterality Modality Other Narrative 11/07/2023 9:42 AM EDT ?[facility] ? Cardiac Catheterization/Intervention Report ? Patient Name: Adin Santos M. ? Procedure Date: 10/30/2023 ? A #: [id number] ? Primary Physician: Rosa Dewey I ? Case #: [id number] ? File Name: [id number] ? Catheterization Order Number: [id number] ? [facility] ? Final Report [place], [place] ? Patient Name: ? Adin M. Goguen ?ID#: ?[id number] ? : ?1940 ? Procedure Date: ? October 30, 2023 ? Case #: ? [id number] ? Room: ? 5 ? Case Physician: [...] procedure was Emergent. The indication for ?the chemical laboratory tester visit is ACS less than or equal [...] A premounted 4.00 x 38 mm Andrea Linwood (RADHA) was deployed ? with a maximum [...] dose administered prior to arrival in the chemical laboratory tester. ?Recommended anti-platelet/anti-thrombotic regimen: ?Continue aspirin 81 mg daily for 12 months then stop. ?Continue clopidogrel 75 mg daily for indefinitely. ?These recommendations are made at the time of the intervention. Patient ?and provider preferences or a changing clinical situation may require ?modification of this regimen. Consult [facility] Interventional Cardiology for ?questions. ? [...] Note Rosa Dewey MD - 12/05/2023 [facility] Cardiac Catheterization/Intervention Report Patient Name: Adin Santos Procedure Date: 10/30/2023 A #: [id number] Primary Physician: Rosa Dewey I Case #: [id number] File Name: [id number] Catheterization Order Number: [id number] [facility] FinalReport [place], [place] Patient Name: Adin Santos ID#:[id number] :1940 Procedure Date: October 30, 2023 Case [...] was designated as ASA Class III. The [facility] clinical frailtyscale is 5: Mildly Frail. Diagnostic Tests: Electrocardiography: EKG was assessed by ECG. EKG was Abnormal. EKG showed STDeviation >= 0.5 mm, other abnormality and dynamic EKG changes. Medications Prior to Procedure: Aspirin, Angiotensin II Receptor Rodrick, Beta Rodrick andStatin. Indications for Diagnostic Cath: The priority of the diagnostic procedure was Emergent. Theindication for the chemical laboratory tester visit is ACS less than or equal [...] 16atmospheres. A premounted 4.00 x 38 mm [place] Linwood (RADHA) wasdeployed with a maximum inflation pressure [...] dose administered prior to arrival in the chemical laboratory tester. Recommended anti-platelet/anti-thrombotic regimen: Continue aspirin 81 mg daily for 12 months then stop. Continue clopidogrel 75 mg daily for indefinitely. These recommendations are made at the time of the intervention.Patient and provider preferences or a changing clinical situation mayrequire modification of this regimen. Consult [facility] Interventional Cardiologyfor questions. Conclusions: * [...] AM EDT) [facility] Troponin-T, High Sensitivity 457(H) <=14 ng/L [facility] Comment: This patient's [...] value can be found in the [facility] Laboratory Test Catalog Troponin - [facility] Laboratory Test Catalog Reference: Fourth [place] Definition of Myocardial Infarction. Journal of the [place] [employer] 2018;72:2986-0035 Blood 10/31/2023 4:21 AM EDT 10/31/2023 4:30 AM EDT Narrative Resulting Agency Comment Spec In Lab Rosa Cornejo MD CHEMISTRY ORDERABLE S Performing Organization Address City/State/[facility] Co de Phone Number [facility] [place] [address] * (ABNORMAL) Differential, Automated (10/31/2023 3:05 AM EDT) Neutrophil % 71.7 % [facility] Neutrophil Absolute 8.21(H) 1.70 - 6.10 x10(3)/mc L [facility] Lymph % 16.9 % [facility] Lymphocytes Abs 1.9 0.9 - 3.2 x10(3)/mc L [facility] Monocyte % 9.4 % [facility] Monocyte Abs 1.1(H) 0.3 - 0.9 x10(3)/mc L [facility] Eos % 1.3 % [facility] Eosinophils Abs 0.2 0.0 - 0.4 x10(3)/mc L [facility] Basophil % 0.4 % [facility] Baso Absolute 0.0 0.0 - 0.1 x10(3)/ L [facility] Immature Gran % 0.30 % [facility] Comment: Immature granulocytes(IG's)percentage and absolute count will include metamyelocytes, myelocytes, and promyelocytes. Blood smears from CBCs yielding IG's will be scanned manually for concordance. If this scan disagrees with the automated IG or if promyelocytes are noted, a manual differential will be performed. Immature Gran Absolute 0.04 0.00 - 0.04 x10(3)/ L [facility] Blood 10/31/2023 3:05 AM EDT 10/31/2023 3:13 AM EDT Narrative Resulting Agency Comment Spec In Lab Qamar Gallardo MD HEMATOLOGY ORDERABLE S Performing Organization Address City/State/[facility] Co de Phone Number [facility] [place] [address] * (ABNORMAL) Hemogram (10/31/2023 3:05 AM EDT) White Blood Cell 11.5(H) 4.0 - 9.5 x10(3)/ L [facility] Red Blood Cell 3.75(L) 4.00 - 5.21 x10(6)/ L [facility] Hemoglobin 12.6 11.7 - 15.5 g/dL [facility] Hematocrit 37.1 35.7 - 45.8 % [facility] Mean Cell Volume 98.9(H) 82.6 - 94.4 fL [facility] Mean Cell Hemoglobin 33.6(H) 27.1 - 32.0 pg [facility] Mean Cell Hemoglobin Concentration 34.0 31.7 - 35.0 g/dL [facility] Platelet 206 145 - 357 x10(3)/ L [facility] RDW Standard Deviation 53.4(H) 37.0 - 46.0 fL [facility] RDW coefficient of variation 14.6(H) 11.5 - 14.1 % [facility] Mean Platelet Volume 11.1 7.6 - 12.9 fL [facility] NRBC% auto 0.0 % [facility] NRBC Absolute 0.000 0.000 - 0.000 x10(3)/mc L [facility] Blood 10/31/2023 3:05 AM EDT 10/31/2023 3:13 AM EDT Narrative Resulting Agency Comment Spec In Lab Qamar Gallardo MD HEMATOLOGY ORDERABLE S Performing Organization Address [facility] Co de Phone Number [facility] [place] [address] * (ABNORMAL) APTT (10/31/2023 3:05 AM EDT) Partial Thromboplastin Time 67(H) 25 - 37 sec [facility] Comment: The PTT is NOT appropriate for heparin monitoring. Use the Anti-Xa level for heparin monitoring (HEP UFH) or LMWH monitoring (HEP LMW). A PTT less than 37 seconds generally indicates adequate hemostasis. Blood 10/31/2023 3:05 AM EDT 10/31/2023 3:13 AM EDT Narrative Resulting Agency Comment Spec In Lab Rosa Cornejo MD HEMATOLOGY ORDERABL ES Performing Organization Address [facility] Co de Phone Number [facility] [place] [address] * (ABNORMAL) Prothrombin Time (10/31/2023 3:05 AM EDT) Prothrombin Time 12.6(H) 9.4 - 12.5 sec [facility] International Normalization Ratio 1.1 [facility] Comment: An INR [...] Comment Spec In Lab Rsoa Cornejo MD HEMATOLOGY ORDERABL ES [facility] [place] [address] * (ABNORMAL) Differential, Automated (10/31/2023 1:37 AM EDT) Neutrophil % 71.1 % [facility] Neutrophil Absolute 7.53(H) 1.70 - 6.10 x10(3)/mc L [facility] Lymph % 18.0 % [facility] Lymphocytes Abs 1.9 0.9 - 3.2 x10(3)/mc L [facility] Monocyte % 8.7 % [facility] Monocyte Abs 0.9 0.3 - 0.9 x10(3)/mc L [facility] Eos % 1.6 % [facility] Eosinophils Abs 0.2 0.0 - 0.4 x10(3)/mc L [facility] Basophil % 0.4 % [facility] Baso Absolute 0.0 0.0 - 0.1 x10(3)/mc L [facility] Immature Gran % 0.20 % [facility] Comment: Immature granulocytes(IG's)percentage and absolute count will include metamyelocytes, myelocytes, and promyelocytes. Blood smears from CBCs yielding IG's will be scanned manually for concordance. If this scan disagrees with the automated IG or if promyelocytes are noted, a manual differential will be performed. Immature Gran Absolute 0.02 0.00 - 0.04 x10(3)/mc L [facility] Blood 10/31/2023 1:37 AM EDT 10/31/2023 1:46 AM EDT Narrative Resulting Agency Comment Spec In Lab Qamar Gallardo MD HEMATOLOGY ORDERABLE S [facility] [place] [address] * (ABNORMAL) Hemogram (10/31/2023 1:37 AM EDT) White Blood Cell 10.6(H) 4.0 - 9.5 x10(3)/mc L [facility] Red Blood Cell 3.78(L) 4.00 - 5.21 x10(6)/mc L [facility] Hemoglobin 13.0 11.7 - 15.5 g/dL [facility] Hematocrit 37.9 35.7 - 45.8 % [facility] Mean Cell Volume 100.3(H) 82.6 - 94.4 fL [facility] Mean Cell Hemoglobin 34.4(H) 27.1 - 32.0 pg [facility] Mean Cell Hemoglobin Concentration 34.3 31.7 - 35.0 g/dL [facility] Platelet 204 145 - 357 x10(3)/mc L [facility] RDW Standard Deviation 54.3(H) 37.0 - 46.0 fL [facility] RDW coefficient of variation 14.6(H) 11.5 - 14.1 % [facility] Mean Platelet Volume 11.1 7.6 - 12.9 fL [facility] NRBC% auto 0.0 % [facility] NRBC Absolute 0.000 0.000 - 0.000 x10(3)/mc L [facility] Blood 10/31/2023 1:37 AM EDT 10/31/2023 1:46 AM EDT Narrative Resulting Agency Comment Spec In Lab Qamar Gallardo MD HEMATOLOGY ORDERABLE S [facility] [place] [address] * Phosphorus (10/31/2023 1:37 AM EDT) [facility] Phosphorus 3.2 2.5 - 4.5 mg/dL [facility] Blood 10/31/2023 1:37 AM EDT 10/31/2023 1:46 AM EDT Narrative Resulting Agency Comment Spec In Lab Rosa Cornejo MD CHEMISTRY ORDERABLE S Performing Organization Address City/[facility]/ZIP Co de Phone Number [facility] [place] [address] * Magnesium (10/31/2023 1:37 AM EDT) [facility] Magnesium 0.83 0.69 - 1.07 mmol/L [facility] Blood 10/31/2023 1:37 AM EDT 10/31/2023 1:46 AM EDT Narrative Resulting Agency Comment Spec In Lab Rosa Cornejo MD CHEMISTRY ORDERABLE S Performing Organization Address City/[facility]/ZIP Co de Phone Number [facility] [place] [address] * Basic Metabolic Panel (non-fasting) (10/31/2023 1:37 AM EDT) [facility] Glucose 114 65 - 199 mg/dL [facility] Comment:Diabetes: >=200 mg/d L plus symptoms Blood Urea Nitrogen 13 8 - 18 mg/dL [facility] Creatinine 0.81 0.70 - 1.20 mg/dL [facility] Sodium 140 135 - 145 mmol/L [facility] Potassium 3.9 3.5 - 5.0 mmol/L [facility] Comment: Please note: ??Patients with WBC >100,000 may have falsely elevated Potassium levels. ??For accurate Potassium quantification in these patients send serum separator tube (gold top) for subsequent determinations. ??Contact the Clinical Chemistry Laboratory if there are any questions. Chloride 107 98 - 107 mmol/L [facility] Carbon Dioxide 25 22 - 31 mmol/L [facility] Anion Gap 8 5 - 15 mmol/L [facility] Calcium 8.6 8.5 - 10.5 mg/dL [facility] Est Glomerular Filtration Rate 72 >=60 mL/min/1. 73 m?? [facility] Comment: This patient's [...] Lab Rosa Cornejo MD CHEMISTRY ORDERABLE S [facility] [place] [address] * (ABNORMAL) Troponin (10/31/2023 1:37 AM EDT) Troponin-T, High Sensitivity 329(H) <=14 ng/L [facility] Comment: This patient's [...] value can be found in the [facility] Laboratory Test Catalog Troponin - [facility] Laboratory Test Catalog Reference: Fourth [place] Definition of Myocardial Infarction. Journal of the [place] [employer] 2018;72:3055-9291 Blood 10/31/2023 1:37 AM EDT 10/31/2023 1:46 AM EDT Narrative Resulting Agency Comment Spec In Lab Rosa Cornejo MD CHEMISTRY ORDERABLE S Performing Organization Address City/State/[facility] [place] [address] * EKG 12 Lead (10/31/2023 1:20 AM EDT) Ventricular rate 52 BPM MUSE SYSTEM Atrial Rate 52 BPM MUSE SYSTEM P-R Interval 224 ms MUSE SYSTEM QRS Duration 108 ms MUSE SYSTEM Q-T Interval 544 ms MUSE SYSTEM QTC Calculated (Bezet) 505 ms MUSE SYSTEM Calculated P [place] 90 degrees MUSE SYSTEM Calculated R [place] -57 degrees MUSE SYSTEM Calculated T [place] -63 degrees MUSE SYSTEM INTERPRETATION Sinus bradycardia with 1st degree A-V block Pulmonary disease pattern Left anterior fascicular block Moderate voltage criteria for LVH, may be normal variant ( R in aVL , Hi Hat product ) T wave abnormality, consider inferior ischemia T wave abnormality, consider anterolateral ischemia Prolonged QT Abnormal ECG When compared with ECG of 30-OCT-2023 22:40, No significant change was found Confirmed by Butch Soto MD ([id number]) on 11/01/2023 8:58:03 PM MUSE SYSTEM 10/31/2023 1:20 AM EDT 11/01/2023 8:58 PM EDT Rosa Cornejo MD ECG ORDERABLES Performing Organization Address [facility] de Phone Number MUSE SYSTEM * EKG 12 Lead (10/30/2023 10:40 PM EDT) Ventricular rate 55 BPM MUSE SYSTEM Atrial Rate 55 BPM MUSE SYSTEM P-R Interval 232 ms MUSE SYSTEM QRS Duration 102 ms MUSE SYSTEM Q-T Interval 520 ms MUSE SYSTEM QTC Calculated (Bezet) 497 ms MUSE SYSTEM Calculated P [place] 75 degrees MUSE SYSTEM Calculated R [place] -53 degrees MUSE SYSTEM Calculated T [place] -57 degrees MUSE SYSTEM INTERPRETATION Sinus bradycardia with 1st degree A-V block Left anterior fascicular block Moderate voltage criteria for LVH, may be normal variant ( R in aVL , Hi Hat product ) T wave abnormality, consider inferior ischemia T wave abnormality, consider anterolateral ischemia Prolonged QT Abnormal ECG When compared with ECG of 30-OCT-2023 20:21, Incomplete right bundle branch block is no longer Present Confirmed by Charles COFFMAN, Butch ([id number]) on 11/01/2023 8:58:01 PM MUSE SYSTEM 10/30/2023 10:4 0 PM EDT 11/01/2023 8:58 PM EDT Rosa Cornejo MD ECG ORDERABLES Performing Organization Address [facility] Phone Number MUSE SYSTEM * XR Chest One View (10/30/2023 10:10 PM EDT) WORKSTATION ID [id number] RAD Anatomical Region Laterality Modality Chest N/A Digital Radiogra phy Impressions 10/30/2023 10:32 PM EDT 1. ??Examination limited by low lung volumes. 2. ??Findings suggesting pulmonary vascular congestion with possible mild interstitial edema. 3. ??Known ascending aortic aneurysm, as seen on recent CT. 4. ??Nonspecific widening mediastinum. This can be secondary to magnification from portable technique and low lung volumes. Findings similar to director emergency services radiograph from CT 10/30/2023. Thank you for letting us participate in the care of this patient. ??If you are a health care provider and have any questions regarding this report, please contact the number below. ??For patients who have questions please contact the health medical care manager that requested your imaging first. ? Electronically signed by: Wilson Mccartney MD, [facility] ([phone]), at 10/30/2023 10:32 PM Narrative 10/30/2023 10:32 [...] and low lung volumes. Findings similar to director emergency services radiograph from CT 10/30/2023. Thank you for [...] PM EDT) [facility] Green Hold Sample in lab. [facility] Blood Venous Draw / Unknown 10/30/2023 10:05 PM EDT 10/30/2023 10:13 PM EDT Qamar Gallardo MD CHEMISTRY ORDERABLES [facility] [place] [address] * (ABNORMAL) Differential, Automated (10/30/2023 10:05 PM EDT) [facility] Neutrophil % 76.6 % [facility] Neutrophil Absolute 6.94(H) 1.70 - 6.10 x10(3)/mc L [facility] Lymph % 15.4 % [facility] Lymphocytes Abs 1.4 0.9 - 3.2 x10(3)/mc L [facility] Monocyte % 6.1 % [facility] Monocyte Abs 0.6 0.3 - 0.9 x10(3)/mc L [facility] Eos % 1.1 % [facility] Eosinophils Abs 0.1 0.0 - 0.4 x10(3)/ L [facility] Basophil % 0.6 % [facility] Baso Absolute 0.0 0.0 - 0.1 x10(3)/ L [facility] Immature Gran % 0.20 % [facility] Comment: Immature granulocytes(IG's)percentage and absolute count will include metamyelocytes, myelocytes, and promyelocytes. Blood smears from CBCs yielding IG's will be scanned manually for concordance. If this scan disagrees with the automated IG or if promyelocytes are noted, a manual differential will be performed. Immature Gran Absolute 0.02 0.00 - 0.04 x10(3)/ L [facility] Blood 10/30/2023 10:0 5 PM EDT 10/30/2023 10:12 PM EDT Narrative Resulting Agency Comment Spec In Lab Qamar Gallardo MD HEMATOLOGY ORDERABLE S [facility] [place] [address] * (ABNORMAL) Hemogram (10/30/2023 10:05 PM EDT) White Blood Cell 9.0 4.0 - 9.5 x10(3)/ L [facility] Red Blood Cell 3.96(L) 4.00 - 5.21 x10(6)/mc L [facility] Hemoglobin 13.3 11.7 - 15.5 g/dL [facility] Hematocrit 39.1 35.7 - 45.8 % [facility] Mean Cell Volume 98.7(H) 82.6 - 94.4 fL [facility] Mean Cell Hemoglobin 33.6(H) 27.1 - 32.0 pg [facility] Mean Cell Hemoglobin Concentration 34.0 31.7 - 35.0 g/dL [facility] Platelet 211 145 - 357 x10(3)/ L [facility] RDW Standard Deviation 53.6(H) 37.0 - 46.0 fL [facility] RDW coefficient of variation 14.6(H) 11.5 - 14.1 % [facility] Mean Platelet Volume 11.1 7.6 - 12.9 fL [facility] NRBC% auto 0.0 % [facility] NRBC Absolute 0.000 0.000 - 0.000 x10(3)/mc L [facility] Blood 10/30/2023 10:0 5 PM EDT 10/30/2023 10:12 PM EDT Narrative Resulting Agency Comment Spec In Lab Qamar Gallardo MD HEMATOLOGY ORDERABLE S Performing Organization Address City/[facility]/ZIP Co de Phone Number [facility] [place] [address] * Hemoglobin A1c (10/30/2023 10:05 PM EDT) Hemoglobin A1c 5.5 4.3 - 5.6 % [facility] Comment: Reference Range: [...] Mellitus, Diabetes Care 2013; 36: Suppl. 1, J88-01 Estimated Average Glucose See note mg/dL [facility] Comment: Estimated Average Glucose not appropriate for patients over 70 years of age. Blood 10/30/2023 10:0 5 PM EDT 10/30/2023 10:12 PM EDT Narrative Resulting Agency Comment Spec In Lab Rosa Cornejo MD CHEMISTRY ORDERABLE S Performing Organization Address City/[facility]/ZIP Co de Phone Number [facility] [place] [address] * Lipid Panel (Reflex Direct LDL) (10/30/2023 10:05 PM EDT) Cholesterol, Total 218 mg/dL [facility] Comment: Desirable: ? <200 mg/dL Borderline High: 200-239 mg/dL Higher: ?>qt=175 mg/dL Triglyceride 46 mg/dL [facility] Comment: Normal: ?<150 mg/dL Borderline High: 150-199 mg/dL High: ?200-499 mg/dL Very High: ? >pk=993 mg/dL HDL Cholesterol 64 mg/dL [facility] Comment: Females: High Risk: <50 mg/dL Males: High Risk: <40 mg/dL LDL Cholesterol 145 mg/dL [facility] Comment: Desirable: ? <100 mg/dL Above Desirable: 100-129 mg/dL Borderline High: 130-159 mg/dL High: ?160-189 mg/dL Very High: ? >jj=348 mg/dL Lipid Interpretation See Note [facility] Comment: It is [...] ACC/AHA Guidelines (most recently Feliciano et al. [facility] 03/23/22): For individuals with atherosclerotic cardiovascular disease (ASCVD)or LDL >xu=212 mg/dL, use a high-intensity statin (40-80 mg [...] Lab Rosa Cornejo MD CHEMISTRY ORDERABLE S [facility] [place] [address] * TSH [place] (10/30/2023 10:05 PM EDT) Thyroid Stimulating Hormone 3.35 0.27 - 4.20 mcIU/mL [facility] Comment: Reference Interval (mcIU/mL): Females: ??First Trimester: 0.23-3.88 ??Second Trimester: 0.22-3.90 ??Third Trimester: 0.44-4.66 Blood 10/30/2023 10:0 5 PM EDT 10/30/2023 10:12 PM EDT Narrative Resulting Agency Comment Spec In Lab Rosa Cornejo MD CHEMISTRY ORDERABLE S [facility] [place] [address] * pro-Brain Natriuretic Peptide (10/30/2023 10:05 PM EDT) NT-proBNP 375 <=449 pg/mL [facility] Blood 10/30/2023 10:0 5 PM EDT 10/30/2023 10:12 PM EDT Narrative Resulting Agency Comment Spec In Lab Rosa Cornejo MD CHEMISTRY ORDERABLE S Performing Organization Address [facility]/ZIP Co de Phone Number [facility] [place] [address] * (ABNORMAL) Comprehensive metabolic panel (non-fasting) (10/30/2023 10:05 PM EDT) Pathologist [facility] Glucose 121 65 - 199 mg/dL [facility] Comment:Diabetes: >=200 mg/d L plus symptoms Blood Urea Nitrogen 14 8 - 18 mg/dL [facility] Creatinine 0.85 0.70 - 1.20 mg/dL [facility] Sodium 142 135 - 145 mmol/L [facility] Potassium 3.9 3.5 - 5.0 mmol/L [facility] Comment: Please note: ??Patients with WBC >100,000 may have falsely elevated Potassium levels. ??For accurate Potassium quantification in these patients send serum separator tube (gold top) for subsequent determinations. ??Contact the Clinical Chemistry Laboratory if there are any questions. Chloride 105 98 - 107 mmol/L [facility] Carbon Dioxide 27 22 - 31 mmol/L [facility] Anion [place] 10 5 - 15 mmol/L [facility] Calcium 8.8 8.5 - 10.5 mg/dL [facility] Protein, Total 6.5 6.1 - 8.0 g/dL [facility] Albumin 4.2 3.2 - 5.2 g/dL [facility] Aspartate Aminotransferase 36(H) 0 - 30 unit/L [facility] Alanine Aminotransferase 17 0 - 30 unit/L [facility] Alkaline Phosphatase 54 35 - 105 unit/L [facility] Bilirubin, Total 0.5 0.2 - 1.3 mg/dL [facility] Est Glomerular Filtration Rate 68 >=60 mL/min/1. 73 m?? [facility] Comment: This patient's [...] [facility]/ZIP Co de Phone Number [facility] [place] [address] * Phosphorus (10/30/2023 10:05 PM EDT) Phosphorus 3.3 2.5 - 4.5 mg/dL [facility] Blood 10/30/2023 10:0 5 PM EDT 10/30/2023 10:12 PM EDT Narrative Resulting Agency Comment Spec In Lab Rosa Cornejo MD CHEMISTRY ORDERABLE S Performing Organization Address City/[facility]/ZIP Co de Phone Number [facility] [place] [address] * Magnesium (10/30/2023 10:05 PM EDT) Magnesium 0.86 0.69 - 1.07 mmol/L [facility] Blood 10/30/2023 10:0 5 PM EDT 10/30/2023 10:12 PM EDT Narrative Resulting Agency Comment Spec In Lab Rosa Cornejo MD CHEMISTRY ORDERABLE S [facility] [place] [address] * (ABNORMAL) Troponin (10/30/2023 10:05 PM EDT) Troponin-T, High Sensitivity 214(H) <=14 ng/L [facility] Comment: This patient's [...] value can be found in the [facility] Test Catalog Troponin - [facility] Test Catalog Reference: Fourth [place] Definition of Myocardial Infarction. Journal of the [place] [employer] 2018;72:0014-2777 Blood 10/30/2023 10:0 5 PM EDT 10/30/2023 10:12 PM EDT Narrative Resulting Agency Comment Spec In Lab Rosa Cornejo MD CHEMISTRY ORDERABLE S [facility] [place] [address] * EKG 12 Lead (10/30/2023 8:21 PM EDT) Ventricular rate 49 BPM MUSE SYSTEM Atrial Rate 49 BPM MUSE SYSTEM P-R Interval 230 ms MUSE SYSTEM QRS Duration 96 ms MUSE SYSTEM Q-T Interval 526 ms MUSE SYSTEM QTC Calculated (Bezet) 475 ms MUSE SYSTEM Calculated P [place] 98 degrees MUSE SYSTEM Calculated R [place] -48 degrees MUSE SYSTEM Calculated T [place] -51 degrees MUSE SYSTEM INTERPRETATION Sinus bradycardia [...] Cornejo MD ECG ORDERABLES Performing Organization Address City/[facility] Co de Phone Number MUSE SYSTEM [...] Food, Routine 0939 (Given - Provider: Mary Sweeeny RN)1333 (MAR Hold - Provider: Admin Adt [...] documented as of this encounter Care Teams Skin Grader Relationship Specialty Start Date End Date Rosie Mathews MD [address] [place] [id number] PCP - General Family Medicine 11/25/17 11/23/23 documented as of this encounter
--- OUTSIDE RECORDS SUMMARY | 2024-03-15 08:31 | XMS_ITS | Encounter Summary ---
Author Organization [facility] [place] [address] Care Team Providers Care Director Online Marketing Name Role Phone Rosie Mahtews MD Primary Care Provider Reason for Visit * Auth/Cert (Routine) Specialty Diagnoses / Procedures Referred By Contac t Referred To Contact Diagnoses Unstable angina Procedures [place] [facility] [employer] [place] [facility] Referral ID Status Reason Start Date Expiration Date Visits Re quested Visits Authorized [id number] 1 1 Encounter Details Date Type Department Care Team (Latest Contact Info) Description 10/30/2023 5:00 PM EDT - 10/30/2023 5:10 PM EDT Hospital [place] [phone] Rosa Menjivar MD [facility] [place] [address] Discharge Disposition: Home Social History Tobacco Use Types Packs/Day Years Used Date Smoking Tobacco: Former Smokeless Tobacco: Never Alcohol Use Standard Drinks/Week Comments Not Currently 0 (1 standard drink = 0.6 oz pur e alcohol) [facility] Inpatient Questions Answer Date Recorded [...] AM EDT Office Visit Cardiology at [address] [place] [address] Izaiah Meyer MD [facility] [place] [address] documented as of this encounter Visit Diagnoses Not on filedocumented in this encounter Care Teams Director Online Marketing Relationship Specialty Start Date End Date Rosie Mathews MD [address] [place] [address] PCP - General Family Medicine 11/25/17 11/23/23 documented as of this encounter
--- OUTSIDE RECORDS SUMMARY | 2024-03-15 08:31 | XMS_ITS | Encounter Summary ---
Author Organization [facility] Address [facility] [place] [address] Care Team Providers Care Buffet Runner Name Role Phone Rosie Mathews MD Primary Care Provider [phone] Encounter Details Date Type Department Care Team (Late st Contact Info) Description 10/30/2023 5:00 PM EDT Ancillary Procedure Radiology Library at [facility] [place] [address] Izaiah Meyer MD [facility] [place] [address] Social History Tobacco Use Types Packs/Day Years Used Date Smoking Tobacco: Former Smokeless Tobacco: Never Alcohol Use Standard Drinks/Week Comments Not Currently 0 (1 standard drink = 0.6 oz pur e alcohol) [facility] Inpatient Questions Answer Date Recorded [...] AM EDT Office Visit Cardiology at [address] [place] [phone] Izaiah Meyer MD [facility] [place] [address] documented as of this encounter Procedures Procedure Name Priority Date/Time Associated Diagnosis Comments FILM LIBRARY STORAGE ONLY CT CHEST Routine 10/30/2023 4:59 PM EDT documented in this encounter Results * Film Library- Storage Only CT Chest (10/30/2023 4:59 PM EDT) Narrative [facility] - 10/30/2023 4:59 PM EDT This exam is auto-finalizing. It's purpose is for storage only. Izaiah Meyer MD IMG FILM LIBRARY ORD ERABLES Performing Organization Address City/State/[facility] Co de Phone Number [place], [place] documented in this encounter Visit Diagnoses Not on filedocumented in this encounter Care Teams Buffet Runner Relationship Specialty Start Date End Date Rosie Mathews MD [address] [place] [address] PCP - General Family Medicine 11/25/17 11/23/23 documented as of this encounter
--- OUTSIDE RECORDS SUMMARY | 2024-03-15 08:31 | XMS_ITS | Encounter Summary ---
Author Organization Formerly [facility] [place] [address] Care Team Providers Care Professor Of Religion Name Role Phone Rosie Mathews MD Primary Care Provider [phone] Reason for Visit * Auth/Cert (Routine) Specialty Diagnoses / Procedures Referred By Contbruce t Referred To Contact Diagnoses Unstable angina Chest pain NSTEMI Procedures CARDIAC CATHETERIZATION Rosa Dewey MD [facility] [place] [place] [address] [facility] Referral ID Status Reason Start Date Expiration Date Visits Re quested Visits Authorized [id number] 1 1 Encounter Details Date Type Department Care Team (Late st Contact Info) Description 11/01/2023 3:33 PM EDT - 11/01/2023 5:03 PM [place] [address] Rosa Dewey MD [facility] [address] [place], [place] [id number] CARDIAC CATHETERIZATION Social History Tobacco Use Types Packs/Day Years Used Date Smoking Tobacco: Former Smokeless Tobacco: Never Alcohol Use Standard Drinks/Week Comments Not Currently 0 (1 standard drink = 0.6 oz pur e alcohol) [facility] Utilities Answer Date Recorded In the [...] documented in this encounter Discharge Summaries * lEmer Tamez MD - 11/03/2023 3:18 PM EDT [...] [facility] as a possible STEMI alert with acute onset chest pain. The patient reports that her symptoms initially began on Tuesday when she was walking to [facility] and experienced bilateral arm heaviness while walking with no other symptoms. Then, this afternoon shereports developing bilateral achy shoulder pain and nonradiating substernal left-sided chest pressure that was 7/10 in severity after coming home from [facility]. The patient denies any associated fevers, chills, diaphoresis, lightheadedness/dizziness, syncope/presyncope, dyspnea (either at rest or on exertion), palpitations, orthopnea, or PND. The patient subsequently presented to [facility] as a walk-in for further [...] the patient was taken directly to the Rn Lvn. Two lesions were discovered: one in the prox RCA (felt to almost be a CLAIMS ATTORNEY but they were able to wire, balloon, [...] dose administered prior to arrival in the dock or pier laborer. Recommended anti-platelet/anti-thrombotic regimen: Continue aspirin 81 [...] and low lung volumes. Findings similar to product/device technologist radiograph from CT 10/30/2023. Pending Studies and [...] 10:40 AM Izaiah Meyer MD Cardiology at [place] Arrive at: [facility] [address] [phone] Future Orders Complete By Expires Referral to Cardiac Rehab [[id number] Custom] As directed Process Instructions: If no progress note charted, please enter Clinical details in comments. Scheduling Instructions: Questions: My question or request is: STEMI. Cardiac rehab at [facility]. Referral to Home Health [[id number] Custom] As directed Process Instructions: If no progress note charted, please enter Clinical details in comments. Scheduling Instructions: Comments: Please evaluate Adin Santos for admission to Home Health. [address] [facility] [address] (home) Date of : 1940 Inpatient DOCUMENTATION FOR VNA SERVICES (INCLUDING THOSE PATIENTS WITH MEDICARE COVERAGE REQUIRING HOME VNA SERVICES AND/OR HOSPICE SERVICES) PATIENT'S LOCATION: Adin Santos [address] [facility] [address] (home) Cell: Telephone Information: Loading Unit Operator Seating's Name: self In discussion with the attending physician, it is certified that this patient is under their care and that they, or a Nurse Practitioner, Clinical Nurse specialist or Physician Truck Crane Operator Helper who is working directly with them, had [...] regarding health issues HOME HEALTH CARE AGENCY: [facility] [address] [address] START OF CARE: within 24-48 hours of [...] Rosie Mathews MD [address] / [facility] [address] . All A agencies [...] MD / Dr. Masood Pierson [address] [place] [address] 11/09/23 1:55 PM arrival for 2:10 PM appointment Cane Weigher Helper: Izaiah Meyer MD [address] [place] [id number] , 11/24/2023 10:40 AM Your Inpatient Medical Team at [facility] Name(s) of your inpatient provider(s): Attending physician: Rosa Hugo MD Resident physicians: Emile Robles MD; Elmer Tamez MD If you have non-emergent questions, prior to your follow-up visit call: Tuesday-Tuesday between the hours of 8AM-5PM please call the Cardiology Clinic [phone] to speak with a nurse. All other hours please call the Hospital Salesperson Shoes [phone] and ask to speak to the anesthesiology fellow on-call. Your Primary Care Provider Rosie Mathews MD [phone] For questions regarding this document or issues relating to this hospitalization on the Medical Service, please contact your inpatient physician through the [facility] Salesperson [employer]oes . Issues afterhours and on weekends will be handled by the Cane Weigher Helper staff on-call. Associated attestation - Rosa Hugo [...] Mathews MD / Dr. Masood Pierson [address] [place] [address] 11/09/23 1:55 PM arrival for 2:10 PM appointment Cane Weigher Helper: Izaiah Meyer MD [address] [place] [address] , 11/24/2023 10:40 AM Your Inpatient Medical Team at [facility] Name(s) of your inpatient provider(s): Attending physician: Rosa Hugo MD Resident physicians: Emile Robles MD; Elmer Tamez MD If you have non-emergent questions, prior to your follow-up visit call: Tuesday-Tuesday between the hours of 8AM-5PM please call the Cardiology Clinic [phone] to speak with a nurse. All other hours please call the Hospital Salesperson Shoes [phone] and ask to speak to the anesthesiology fellow on-call. Your Primary Care Provider Rosie Mathews MD [phone] documented in this encounter Medications at Time [...] [facility] as a possible STEMI alert [...] [facility] as a possible STEMI alert [...] Resident on Cardiology Service Cardiology S1 (Pager [phone]) Note written in conjunction with Claudio Perla [facility] Medical Student, [place]3 Associated attestation - Rosa [...] Nirmala Webb - 11/01/2023 11:25 AM EDT Weed Thinner Encounter Note Patient Name: Adin Santos : [id number] MR#: [id number] Admit Date: 10/30/2023 5:11 PM Hospital Day 2 days Narrative: Self initiated visit to patient for Spiritual support in a regular unit rounds. Assessment: Patient is in the bathroom at the time of this visit. Not a good time for Forest Management Teacher visit. Intervention and Outcome: An attempted visit [...] [facility] as a possible STEMI alert [...] and low lung volumes. Findings similar to product/device technologist radiograph from CT 10/30/2023. Scheduled Medications: [AUG [...] [facility] as a possible STEMI alert [...] Resident on Cardiology Service Cardiology S1 (Pager [phone]) Note written in conjunction with Claudio Perla [facility] Medical Student, [place]3 Associated attestation - Rosa [...] [facility] as a possible STEMI alert with acute onset chest pain. Active Problems: Active Hospital Problems Diagnosis Unstable angina Resolved Hospital Problems No resolved problems to display. 24 hr events: - Cath'd yesterday with lesion in the proximal RCA (initially thought it was CLAIMS ATTORNEY but they were ableto wire, balloon and [...] and low lung volumes. Findings similar to product/device technologist radiograph from CT 10/30/2023. TTE (10/30): Interpretation [...] [facility] as a possible STEMI alert [...] Resident on Cardiology Service Cardiology S1 (Pager [phone]) Note written in conjunction with Claudio Perla [facility] Medical Student, [place]3 Associated attestation - Rosa [...] PCP: Rosie Mathews MD PCP phone number: [phone] Date of Admission: 10/30/2023 ( Hospital Day 0 days ) Attending:Rosa Cornejo MD ID: Adin Santos is a 83 y.o. female PMH significant for hypertension and hyperlipidemia who presented to [facility] as a transfer from [facility] as a possible STEMI alert with acute onset chest pain. The patient reports that her symptoms initially began on Tuesday when she was walking to [facility] and experienced bilateral arm heaviness while walking with no other symptoms. Then, this afternoon shereports developing bilateral achy shoulder pain and nonradiating substernal left-sided chest pressure that was 7/10 in severity after coming home from christianity. The patient denies any associated fevers, chills, diaphoresis, lightheadedness/dizziness, syncope/presyncope, dyspnea (either at rest or on exertion), palpitations, orthopnea, or PND. The patient subsequently presented to [facility] as a walk-in for further [...] the patient was taken directly to the Rn Lvn. Two lesions were discovered: one in the prox RCA (felt to almost be a CLAIMS ATTORNEY but they were able to wire, balloon, [...] and low lung volumes. Findings similar to product/device technologist radiograph from CT 10/30/2023. Assessment & Plan: Adin Santos is a 83 y.o. female PMH significant for hypertension and hyperlipidemia who presented to [facility] as a transfer from [facility] as a possible STEMI alert [...] with HTN HLD transferred with chest from [facility]. BP 217/68, HR [address] elevation. Trop 214-->457. Echo without WMA. C. 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 Additional circ lesion with plan for staged PCI today. oRsa Hugo MD Advanced Heart Disease and [...] information for follow-up [facility], [place] [address] TANESHA BOYCE confirmed with [facility] that they will see the patient within [...] N/A Patient is insured through: Primary Insurance: [employer] MANAGED MEDICARE Payor: [employer] MANAGED MEDICARE / Plan: [employer] MANAGED MEDICARE PPO / Product Type: *No [...] in the room. Electrolytes replaced, see MAR. dye lab technician sites remained C/D/I with baseline ecchymosis unchanged. Pt complained of back pain, lidocaine patch given. Right IV infiltrated during infusion, patient is marked with sharpie, IV removed. See flowsheet for I+O's and safety rounding. Patient is able to make needs known and call capps within reach. PLAN MOVING FORWARD: Monitor Tele, control BP, monitor dock or pier laborer sites, D/C Planning INDIVIDUALIZED FALL PREVENTION [...] in an outpatient cardiac rehabilitation program at [facility] was discussed. Patient agrees to a [...] and above on RA. PT went to dock or pier laborer today. Left fem site oozed throughout [...] MOVING FORWARD: Monitor Tele, control BP, monitor dock or pier laborer sites, D/C Planning INDIVIDUALIZED FALL PREVENTION [...] Admitted From: Transfer from another hospital Location: [facility] Reason for Hospitalization: chest pain Covid [...] care in [place] must abide by [place] law. The hierarchy [...] (i) The agent with financial power of claims attorney or a conservator appointed in accordance [...] has the electric, gas, oil, or water [employer] threatened to shut off services in your [...] toilet seat Home Address confirmed as: [address] [facility] [address] Social & Family Supports: All names listed below confirmed with patient as current and correct Extended Emergency Contact Information Primary Emergency Contact: Iris Downing Address: [address] [place], [place] [address] [place] [address] Mobile Relation: Child Secondary Emergency Contact: Karen [...] Specific Information: N/A Health/Prescription Coverage: Primary Insurance: [employer] MANAGED MEDICARE Payor: [employer] MANAGED MEDICARE / Plan: [employer] MANAGED MEDICARE PPO / Product Type: *No Product type* / Secondary Insurance: N/A Prescription Coverage: Yes Preferred Pharmacy: [id number] - [place], [place] - [address] [place] [id number] Status: Patient is a : No Primary Care Provider listed: Masood Pierson MD [phone] Patient/Caregiver Goals of Treatment: home when MR Potential Needs for Transition of Care: home health care Agency Referrals: Not Applicable I have met with the patient to: discuss discharge planning needs. provide the [facility], Office of Care Management letter from the Melt Down Furnace Operator pertaining to rehab referrals. provide a letter describing our affiliations within the [facility] and educate about their right to choose where referrals are sent. provide a list of Home Health Agencies / Durable Medical Equipment vendors which serve their preferred geographic area. provided patient with [facility] Star Quality Rating handout. They have requested referrals to: [facility] [address] [place] [address] Note routed to a News Specialist who will communicate referrals to facilities [...] results. PO hydralazine added for BP control. dye lab technician sites remain C/D/I, ecchymosis unchanged th roughout shift. See flowsheet for I+O's and safety rounding. Patient is able to make needs known and call capps within reach. PLAN MOVING FORWARD: Monitor Tele, control CP and BP, NPO at MD for cath, monitor dock or pier laborer sites, D/C Planning INDIVIDUALIZED FALL PREVENTION [...] AM EDT Office Visit Cardiology at [address] [place] [address] Izaiah Meyer MD [facility] [place] [address] Scheduled Referrals Name Type Priority Associated Diagnoses [...] S [facility] [address] * (ABNORMAL) Hemogram (11/03/2023 3:46 AM EDT) White Blood Cell 8.3 4.0 - 9.5 x10(3)/mc L [facility] Red Blood Cell 3.77(L) 4.00 - 5.21 x10(6)/mc L [facility] Hemoglobin 13.1 11.7 - [...] Platelet 181 145 - 357 x10(3)/mc L [facility] RDW Standard Deviation 54.7(H) 37.0 - 46.0 fL [facility] MD HEMATOLOGY ORDERABLE S Performing Organization Address City/[facility]/ZIP Co de Phone Number [facility] [place] [address] * Phosphorus (11/03/2023 3:46 AM EDT) Pathologist [facility] Phosphorus 3.2 2.5 - 4.5 mg/dL [facility] Comment:result rechecked-KS Blood 11/03/2023 3:46 AM EDT 11/03/2023 4:11 AM EDT Narrative Resulting Agency Comment Spec In Lab Rosa Cornejo MD CHEMISTRY ORDERABLE S Performing Organization Address [facility] Co de Phone Number [facility] [place] [address] * Magnesium (11/03/2023 3:46 AM EDT) [facility] Magnesium 0.90 0.69 - 1.07 mmol/L [facility] Blood 11/03/2023 3:46 AM EDT 11/03/2023 4:11 AM EDT Narrative Resulting Agency Comment Spec In Lab Rosa Cornejo MD CHEMISTRY ORDERABLE S Performing Organization Address [facility] Co de Phone Number [facility] [place] [address] * (ABNORMAL) Basic Metabolic Panel (non-fasting) (11/03/2023 3:46 AM EDT) Pathologist [facility] Glucose 105 65 - 199 mg/dL UNIVERSITY [...] S [facility] [place] [address] * EKG 12 Lead (11/02/2023 12:44 PM EDT) Ventricular rate 83 BPM MUSE SYSTEM Atrial Rate 83 BPM MUSE SYSTEM P-R Interval 216 ms MUSE SYSTEM QRS Duration 90 ms MUSE SYSTEM Q-T Interval 384 ms MUSE SYSTEM QTC Calculated (Bezet) 451 ms MUSE SYSTEM Calculated P [place] 92 degrees MUSE SYSTEM Calculated R [place] -51 degrees MUSE SYSTEM Calculated T [place] -33 degrees MUSE SYSTEM INTERPRETATION Sinus rhythm with 1st degree A-V block with Premature atrial complexes Left axis deviation Moderate voltage criteria for LVH, may be normal variant ( R in aVL , Ifaenyi product ) Anterolatera l infarct (cited on or before 01-NOV-2023) Abnormal ECG When compared with ECG of 01-NOV-2023 22:10, Premature atrial complexes are now Present [place] interval has increased Vent. rate has decreased [...] ORDERABLES [facility] [place] [address] * (ABNORMAL) Urinalysis with reflex Culture (11/02/2023 [...] CENTER LABORATORY Leukocytes, Urine Dipstick Small(A) Negative [facility] LABORATORY Appearance, Urine Dipstick Cloudy(A) Clear [facility] Specific [place] Urine Automated >=1.030(A) 1.005 - 1.030 [facility] Color, Urine Dipstick Dark Yellow Yellow [facility] Reflex to Culture Yes [facility] Clean Catch Urine 11/02/2023 11:40 AM EDT 11/02/2023 12:04 PM EDT Narrative Resulting Agency Comment Spec In Lab Rosa Hugo MD URINE ORDERABLES [facility] [place] [address] * Respiratory Panel PCR (11/02/2023 10:15 AM EDT) Respiratory Panel Source CIRCUIT RECORDER Swab [facility] Respiratory Panel PCR Negative Negative [facility] Comment: Respiratory Panels are performed on the [employer]S, using multiplexed PCR nucleic acid detection. ??Negative [...] performed using the BioFire Respiratory Panel 2.1 ([employer]) as authorized by the FDA issued Emergency Use Authorization (EUA). This panel also tests for multiple other viral and bacterial pathogens. This assay is intended for In-vitro Diagnostic (IVD) use with nasopharyngeal swabs in viral transport media. The assay is performed based on the instructions for use and additional guidance provided by the FDA. Testing is performed in laboratories within the [facility], each of which is certified under the [...] fact sheets at the following FDA website: https://www.fda.gov/medical-devices/kgfxcckgpzw-rgdqwnz-4828-hifof-08-bcezrrtwd- use-a escnjucrxvjgq-twbiyxn-lgktira/wqqhm-jcndufcuced-lqst Human Metapneumovirus Not Detected Not Detected UNIVERSITY [...] ORDERABLES [facility] [place] [address] * XR Chest One View (11/02/2023 2:51 AM EDT) WORKSTATION ID [id number] RAD Anatomical Region Laterality Modality Chest N/A [...] have questions please contact the health healthcare administrative assistant that requested your imaging first. ? [...] who have questions please contactthe health healthcare administrative assistant that requested your imaging first. Rosa [...] Absolute 0.05(H) 0.00 - 0.04 x10(3)/mc L [facility] Blood 11/02/2023 12:3 5 AM EDT 11/02/2023 12:43 AM EDT Narrative Resulting Agency Comment Spec In Lab Qamar Gallardo MD HEMATOLOGY ORDERABLE S [facility] [address] * (ABNORMAL) Hemogram (11/02/2023 12:35 AM EDT) White Blood Cell 10.0(H) 4.0 - 9.5 x10(3)/ L [facility] [...] S [facility] [place] [address] * (ABNORMAL) Phosphorus (11/02/2023 12:35 AM EDT) Phosphorus 1.6(L) 2.5 - 4.5 mg/dL [facility] Blood 11/02/2023 12:3 5 AM EDT 11/02/2023 12:43 AM EDT Narrative Resulting Agency Comment Spec In Lab Rosa Cornejo MD CHEMISTRY ORDERABLE S Performing Organization Address [facility]/ZIP Co de Phone Number [facility] [place] [address] * Magnesium (11/02/2023 12:35 AM EDT) Magnesium 0.87 0.69 - 1.07 mmol/L [facility] Blood 11/02/2023 12:3 5 AM EDT 11/02/2023 12:43 AM EDT Narrative Resulting Agency Comment Spec In Lab Rosa Cornejo MD CHEMISTRY ORDERABLE S Performing Organization Address [facility]/ZIP Co de Phone Number [facility] [place] [address] * Basic Metabolic Panel (non-fasting) (11/02/2023 12:35 [...] S [facility] [place] [address] * Blood culture (11/02/2023 12:35 AM EDT) Blood Culture No growth at 5 days. [facility] Blood 11/02/2023 12:3 5 AM EDT 11/02/2023 1:55 AM EDT Comment:#2 site ukn Narrative Resulting Agency Comment Spec In Lab Rosa Hugo MD MICROBIOLOGY - BLO OD ORDERABLES Performing Organization Address [facility]/ZIP Co de Phone Number [facility] [place] [address] * Blood culture (11/02/2023 12:15 AM EDT) Blood Culture No growth at 5 days. [facility] Blood 11/02/2023 12:1 5 AM EDT 11/02/2023 1:54 AM EDT Comment:#1site unk Narrative Resulting Agency Comment Spec In Lab Rosa Hugo MD MICROBIOLOGY - BLO OD ORDERABLES Performing Organization Address [facility] Co de Phone Number [facility] [place] [address] * EKG 12 Lead (11/01/2023 10:10 PM EDT) Ventricular rate 139 BPM MUSE SYSTEM Atrial Rate 139 BPM MUSE SYSTEM P-R Interval 168 ms MUSE SYSTEM QRS Duration 84 ms MUSE SYSTEM Q-T Interval 286 ms MUSE SYSTEM QTC Calculated (Bezet) 435 ms MUSE SYSTEM Calculated R [place] -59 degrees MUSE SYSTEM Calculated T [place] -27 degrees MUSE SYSTEM INTERPRETATION Mid-RP tachycardia, [...] interpretation Confirmed by fellow MD Bowen Ashley ([id number]) on 11/04/2023 7:57:50 AM Confirmed by MD Carrillo Danette ([id number]) on 11/04/2023 4:32:03 PM MUSE SYSTEM 11/01/2023 10:1 0 PM EDT 11/04/2023 4:32 PM EDT Rosa Cornejo MD ECG ORDERABLES MUSE SYSTEM * (ABNORMAL) Hemogram (11/01/2023 10:06 PM EDT) White Blood Cell 10.4(H) 4.0 - 9.5 x10(3)/mc L [facility] Red Blood Cell 4.11 4.00 - 5.21 x10(6)/mc L [facility] Hemoglobin 14.0 11.7 - [...] Platelet 197 145 - 357 x10(3)/mc L [facility] RDW Standard Deviation 54.0(H) 37.0 - 46.0 [facility] LAB[facility]ATORY RDW coefficient of variation 14.6(H) 11.5 - 14.1 % [facility] Mean Platelet Volume 11.2 7.6 - 12.9 [facility] LAB[facility]ATORY NRBC% auto 0.0 % [facility] NRBC Absolute 0.000 0.000 - 0.000 x10(3)/mc L [facility] Blood 11/01/2023 10:0 6 PM EDT 11/01/2023 10:22 PM EDT Narrative Resulting Agency Comment Spec In Lab Rosa Hugo MD HEMATOLOGY ORDERAB LES [facility] [place] [id number] * POCT Glucose (11/01/2023 5:59 PM EDT) Glucose, POC 104 65 - 199 mg/dL [facility] Comment: Supplemental ranges: <140 mg/dL before meals <180 mg/dL all other times of the day Blood 11/01/2023 5:59 PM EDT 11/01/2023 5:59 PM EDT Rosa Hugo MD POINT OF CARE TEST ORDERABLES [facility] [address] * POCT Glucose (11/01/2023 5:35 PM EDT) Glucose, POC 85 65 - 199 mg/dL [facility] Comment: Supplemental ranges: <140 mg/dL before meals <180 mg/dL all other times of the day Blood 11/01/2023 5:35 PM EDT 11/01/2023 5:35 PM EDT Rosa Hugo MD POINT OF CARE TEST ORDERABLES [facility] [place] [address] * EKG 12 Lead (11/01/2023 3:22 PM EDT) Ventricular rate 59 BPM MUSE SYSTEM Atrial Rate 59 BPM MUSE SYSTEM P-R Interval 220 ms MUSE SYSTEM QRS Duration 94 ms MUSE SYSTEM Q-T Interval 428 ms MUSE SYSTEM QTC Calculated (Bezet) 423 ms MUSE SYSTEM Calculated P [place] 76 degrees MUSE SYSTEM Calculated R [place] -50 degrees MUSE SYSTEM Calculated T [place] -59 degrees MUSE SYSTEM INTERPRETATION Sinus bradycardia with sinus arrhythmia with 1st degree A-V block Left anterior fascicular block Moderate voltage criteria for LVH, may be normal variant ( R in aVL , [place] product ) Cannot rule out Inferior infarct [...] Other Narrative 11/02/2023 4:57 PM EDT ?[facility] ? Cardiac Catheterization/Intervention Report ? Patient Name: Adin Santos. ? Procedure Date: 11/01/2023 ? A #: [id number] ? Primary Physician: Rosa Dewey I ? Case #: [id number] ? File Name: [id number] ? Catheterization Order Number: [id number] ? [facility] ? Final Report [place], [place] ? Patient Name: ? Adin M. Goguen ?ID#: ?[id number] ? : ?1940 ? Procedure Date: ? [...] [facility] clinical ?frailty scale is 4: Vulnerable. [...] procedure was Urgent. The indication for ?the dock or pier laborer visit is ACS greater than 24 [...] ??A premounted ? 3.50 x 15 mm Mullen Braxton (RADHA) was deployed with a maximum ? [...] ? A premounted 3.50 x 15 mm Mullen Braxton (RADHA) was deployed ? with a maximum [...] dose administered prior to arrival in the dock or pier laborer. ?Recommended anti-platelet/anti-thrombotic regimen: ?Continue aspirin 81 [...] Note Rosa Dewey MD - 12/12/2023 [facility] Cardiac Catheterization/Intervention Report Patient Name: Adin Santos Procedure Date: 11/01/2023 A #: [id number] Primary Physician: Rosa Dewey I Case #: [id number] File Name: [id number] Catheterization Order Number: [id number] [facility] [place] Patient Name: Adin Santos ID#:[id number] :1940 Procedure Date: November 01, 2023 Case [...] diagnostic procedure was Urgent. The indicationfor the dock or pier laborer visit is ACS greater than 24 [...] 14 atmospheres. Apremounted 3.50 x 15 mm Mullen Braxton (RADHA) was deployed with amaximum inflation pressure [...] The lesion was predilated with a 3.00mm [id number] MM balloon with a maximum inflation pressure of 14atmospheres. A premounted 3.50 x 15 mm Mullen Braxton (RADHA) wasdeployed with a maximum inflation pressure [...] dose administered prior to arrival in the dock or pier laborer. Recommended anti-platelet/anti-thrombotic regimen: Continue aspirin 81 [...] RDERABLES [facility] [place] [address] * (ABNORMAL) Differential, Automated (11/01/2023 3:09 AM EDT) Neutrophil % 63.9 % [facility] Neutrophil Absolute 5.54 1.70 - 6.10 x10(3)/mc L [facility] Lymph % 20.0 % [facility] Lymphocytes Abs 1.7 0.9 - 3.2 x10(3)/mc L [facility] Monocyte % 11.9 % [facility] Monocyte Abs 1.0(H) 0.3 - 0.9 x10(3)/ L [facility] [...] Immature Gran Absolute 0.04 0.00 - 0.04 x10(3)/[facility] Blood 11/01/2023 3:09 AM EDT 11/01/2023 3:29 AM EDT Narrative Resulting Agency Comment Spec In Lab Qamar Gallardo MD HEMATOLOGY ORDERABLE S [facility] [place] [place] [address] * (ABNORMAL) Hemogram (11/01/2023 3:09 AM EDT) White Blood Cell 8.7 4.0 - 9.5 x10(3)/ L [facility] Red Blood Cell 3.72(L) 4.00 - 5.21 x10(6)/[facility] Hemoglobin 12.5 11.7 - 15.5 g/dL [...] S [facility] [place] [address] * Phosphorus (11/01/2023 3:09 AM EDT) Phosphorus 2.5 2.5 - 4.5 mg/dL [facility] Blood 11/01/2023 3:09 AM EDT 11/01/2023 3:29 AM EDT Narrative Resulting Agency Comment Spec In Lab Rosa Cornejo MD CHEMISTRY ORDERABLE S [facility] [place] [place] [address] * Magnesium (11/01/2023 3:09 AM EDT) Magnesium 0.82 0.69 - 1.07 mmol/L [facility] Blood 11/01/2023 3:09 AM EDT 11/01/2023 3:29 AM EDT Narrative Resulting Agency Comment Spec In Lab Rosa Cornejo MD CHEMISTRY ORDERABLE S [facility] [place] [place] [address] * (ABNORMAL) Basic Metabolic Panel (non-fasting) (11/01/2023 [...] MD CHEMISTRY ORDERABLE S Performing Organization Address City/[facility]/ZIP Co de Phone Number [facility] [place] [place] [address] * (ABNORMAL) Troponin (10/31/2023 2:46 PM EDT) [...] can be found in the [facility] Laboratory Test Catalog Troponin - [facility] Laboratory Test Catalog Reference: Fourth Seymour Definition of Myocardial Infarction. Journal of the [employer] 2018;72:8310-5889 Blood 10/31/2023 2:46 PM EDT 10/31/2023 2:55 PM EDT Narrative Resulting Agency Comment Spec In Lab Jean Laboy MD CHEMISTRY ORDERABLES Performing Organization Address City/[facility]/ZIP Co de Phone Number [facility] [place] [place] [address] * EKG 12 Lead (10/31/2023 1:07 PM EDT) Ventricular rate 54 BPM MUSE SYSTEM Atrial Rate 54 BPM MUSE SYSTEM P-R Interval 218 ms MUSE SYSTEM QRS Duration 92 ms MUSE SYSTEM Q-T Interval 540 ms MUSE SYSTEM QTC Calculated (Bezet) 512 ms MUSE SYSTEM Calculated P [place] 85 degrees MUSE SYSTEM Calculated R [place] -44 degrees MUSE SYSTEM Calculated T [place] -69 degrees MUSE SYSTEM INTERPRETATION Sinus bradycardia [...] can be found in the [facility] Laboratory Test Catalog Troponin - [facility] Laboratory Test Catalog Reference: Fourth Seymour Definition of Myocardial Infarction. Journal of the [employer] 2018;72:5031-5920 Blood 10/31/2023 11:3 7 AM EDT 10/31/2023 11:50 AM EDT Narrative Resulting Agency Comment Spec In Lab Rosa Cornejo MD CHEMISTRY ORDERABLE S [facility] [place] [address] * ECHO COMPLETE (10/31/2023 8:52 AM EDT) Anatomical Region Laterality Modality Cardiac Other 10/31/2023 7:57 AM EDT Narrative 10/31/2023 9:45 AM EDT [address] [place] [address] ? Echocardiogram Report Name: TOM ADIN Dorene ? Study Date: 10/31/2023 07:57 AMBP: 106/76 mmHg ? Patient Location: [address] : 1940 ? Height: 163 cm ? Account: [id number] Age: 83 yrs ? Weight: 76 kg Gender: Female ?BSA: 1.8 m2 Ordering Physician: ROSA DEWEY Referring Physician: OMAIRA GIRON Performed By: HAFSA Carmichael Reason For Study: STEMI Interpreting Fellow: Raymond Warren. Exam Location: [facility]. Interpretation Summary -The left ventricle is [...] is no prior echocardiogram for comparison. Procedure Complete-12148. Satisfactory quality. There is sinus bradycardia. Left [...] Note Edgard Wang MD - 10/31/2023 [address] [place] [address] Echocardiogram Report Name: ADIN SANTOS Study Date: 407:57 AMBP: 106/76 mmHg Patient Location: [address] : 1940 Height: 163 cm Account: [id number] Age: 83 yrs Weight: 76 kg Gender: Female BSA: 1.8 m2 Ordering Physician: ROSA DEWEY Referring Physician: OMAIRA GIRON Performed By: HAFSA Carmichael Reason For Study: STEMI Interpreting Fellow: Raymond Warren. Exam Location: [facility]. Interpretation Summary -The left ventricle is [...] is no prior echocardiogram for comparison. Procedure Complete-85878. Satisfactory quality. There is sinus bradycardia. Left [...] * (ABNORMAL) Troponin (10/31/2023 8:51 AM EDT) [facility] Troponin-T, High Sensitivity 571(H) <=14 ng/L [facility] [...] can be found in the [facility] Laboratory Test Catalog Troponin - [facility] Laboratory Test Catalog Reference: Fourth Seymour Definition of Myocardial Infarction. Journal of the [employer] 2018;72:9014-0838 Blood 10/31/2023 8:51 AM EDT 10/31/2023 9:12 AM EDT Narrative Resulting Agency Comment Spec In Lab Rosa Cornejo MD CHEMISTRY ORDERABLE S Performing Organization Address [facility] Co de Phone Number [facility] [place] [address] * CARDIAC CATHETERIZATION (10/31/2023 8:10 AM EDT) Anatomical Region Laterality Modality Other Narrative 11/07/2023 9:42 AM EDT ?[facility] ? Cardiac Catheterization/Intervention Report ? Patient Name: Adin Santos ? Procedure Date: 10/30/2023 ? A #: [id number] ? Primary Physician: Rosa Dewey I ? Case #: [id number] ? File Name: [id number] ? Catheterization Order Number: [id number] ? [facility] ? Final Report [place], [place] ? Patient Name: ? Adin M. Goguen ?ID#: ?[id number] ? : ?1940 ? Procedure Date: ? [...] [facility] clinical frailty scale ?is 5: Mildly [...] procedure was Emergent. 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 with a maximum [...] dose administered prior to arrival in the dock or pier laborer. ?Recommended anti-platelet/anti-thrombotic regimen: ?Continue aspirin 81 [...] Note Rosa Dewey MD - 12/05/2023 [facility] Cardiac Catheterization/Intervention Report Patient Name: Adin Santos Procedure Date: 10/30/2023 A #: [id number] Primary Physician: Rosa Dewey I Case #: [id number] File Name: [id number] Catheterization Order Number: [id number] [facility] [place], [place] Patient Name: Adin Santos ID#:[id number] :1940 Procedure Date: October 30, 2023 Case [...] diagnostic procedure was Emergent. Theindication for the dock or pier laborer visit is ACS less than or [...] The priority for the procedure was Emergent.The [facility] indication for the procedure was STEMI-Immediate [...] A premounted 4.00 x 38 mm Andrea Braxton (RADHA) wasdeployed with a maximum inflation pressure [...] dose administered prior to arrival in the dock or pier laborer. Recommended anti-platelet/anti-thrombotic regimen: Continue aspirin 81 [...] * (ABNORMAL) Troponin (10/31/2023 4:21 AM EDT) [facility] Troponin-T, High Sensitivity 457(H) <=14 ng/L [facility] [...] can be found in the [facility] Laboratory Test Catalog Troponin - [facility] Laboratory Test Catalog Reference: Fourth Seymour Definition of Myocardial Infarction. Journal of the [employer] 2018;72:7906-4321 Blood 10/31/2023 4:21 AM EDT 10/31/2023 4:30 AM EDT Narrative Resulting Agency Comment Spec In Lab Rosa Cornejo MD CHEMISTRY ORDERABLE S Performing Organization Address City/State/[facility] Co de Phone Number [facility] [place] [place] [address] * (ABNORMAL) Differential, Automated (10/31/2023 3:05 AM [...] Narrative Resulting Agency Comment Spec In Lab aQmar Gallardo MD HEMATOLOGY ORDERABLE S [facility] [place] [place] [address] * (ABNORMAL) Hemogram (10/31/2023 3:05 AM EDT) White Blood Cell 11.5(H) 4.0 - 9.5 x10(3)/ L [facility] Red Blood Cell 3.75(L) 4.00 - 5.21 x10(6)/mc L [facility] [...] Platelet 206 145 - 357 x10(3)/mc L [facility] RDW Standard Deviation 53.4(H) 37.0 - 46.0 fL [facility] RDW coefficient of variation 14.6(H) 11.5 - 14.1 % [facility] Mean Platelet Volume 11.1 7.6 - 12.9 fL [facility] NRBC% auto 0.0 % [facility] NRBC Absolute 0.000 0.000 - 0.000 x10(3)/mc L [facility] Blood 10/31/2023 3:05 AM EDT 10/31/2023 3:13 AM EDT Narrative Resulting Agency Comment Spec In Lab Qamar Gallardo MD HEMATOLOGY ORDERABLE S Performing Organization Address [facility] de Phone Number [facility] [place] [place] [address] * (ABNORMAL) APTT (10/31/2023 3:05 AM EDT) [...] MD HEMATOLOGY ORDERABL ES Performing Organization Address [facility] de Phone Number [facility] [place] [place] [address] * (ABNORMAL) Prothrombin Time (10/31/2023 3:05 AM [...] ES [facility] [place] [address] * (ABNORMAL) Differential, Automated (10/31/2023 1:37 AM EDT) Neutrophil % 71.1 % [facility] Neutrophil Absolute 7.53(H) 1.70 - 6.10 x10(3)/mc L [facility] Lymph % 18.0 % [facility] Lymphocytes Abs 1.9 0.9 - 3.2 x10(3)/ L [facility] [...] S [facility] [place] [address] * (ABNORMAL) Hemogram (10/31/2023 1:37 AM EDT) [...] S [facility] [place] [address] * Phosphorus (10/31/2023 1:37 AM EDT) Phosphorus 3.2 2.5 - 4.5 mg/dL [facility] Blood 10/31/2023 1:37 AM EDT 10/31/2023 1:46 AM EDT Narrative Resulting Agency Comment Spec In Lab Rosa Cornejo MD CHEMISTRY ORDERABLE S Performing Organization Address City/[facility]/ZIP Co de Phone Number [facility] [place] [address] * Magnesium (10/31/2023 1:37 AM EDT) Magnesium 0.83 0.69 - 1.07 mmol/L [facility] Blood 10/31/2023 1:37 AM EDT 10/31/2023 1:46 AM EDT Narrative Resulting Agency Comment Spec In Lab Rosa Cornejo MD CHEMISTRY ORDERABLE S Performing Organization Address City/[facility]/ZIP Co de Phone Number [facility] [place] [place] [address] * Basic Metabolic Panel (non-fasting) (10/31/2023 1:37 AM EDT) Glucose 114 65 - 199 mg/dL [facility]ERSITY [...] S [facility] [place] [address] * (ABNORMAL) Troponin (10/31/2023 1:37 AM EDT) [...] can be found in the [facility] Laboratory Test Catalog Troponin - [facility] Laboratory Test Catalog Reference: Fourth Seymour Definition of Myocardial Infarction. Journal of the [employer] 2018;72:3910-8518 Blood 10/31/2023 1:37 AM EDT 10/31/2023 1:46 AM EDT Narrative Resulting Agency Comment Spec In Lab Rosa Cornejo MD CHEMISTRY ORDERABLE S Performing Organization Address City/[facility]/[place] [address] * EKG 12 Lead (10/31/2023 1:20 AM EDT) Ventricular rate 52 BPM MUSE SYSTEM Atrial Rate 52 BPM MUSE SYSTEM P-R Interval 224 ms MUSE SYSTEM QRS Duration 108 ms MUSE SYSTEM Q-T Interval 544 ms MUSE SYSTEM QTC Calculated (Bezet) 505 ms MUSE SYSTEM Calculated P [place] 90 degrees MUSE SYSTEM Calculated R [place] -57 degrees MUSE SYSTEM Calculated T [place] -63 degrees MUSE SYSTEM INTERPRETATION Sinus bradycardia [...] (Bezet) 497 ms MUSE SYSTEM Calculated P [place] 75 degrees MUSE SYSTEM Calculated R [place] -53 degrees MUSE SYSTEM Calculated T [place] -57 degrees MUSE SYSTEM INTERPRETATION Sinus bradycardia with 1st degree A-V block Left anterior fascicular block Moderate voltage criteria for LVH, may be normal variant ( R in aVL , [place] product ) T wave abnormality, consider inferior [...] View (10/30/2023 10:10 PM EDT) WORKSTATION ID [id number] DH RAD Anatomical Region Laterality Modality Chest [...] and low lung volumes. Findings similar to product/device technologist radiograph from CT 10/30/2023. Thank you for letting us participate in the care of this patient. ??If you are a health care provider and have any questions regarding this report, please contact the number below. ??For patients who have questions please contact the health healthcare administrative assistant that requested your imaging first. ? Electronically signed by: Wilson Mccartney MD, [facility] ([phone]), at 10/30/2023 10:32 PM Narrative 10/30/2023 10:32 [...] and low lung volumes. Findings similar to product/device technologist radiograph from CT 10/30/2023. Thank you for letting us participate in the care of this patient. If youare a health care provider and have any questions regarding this report,please contact the number below. For patients who have questions please contactthe health healthcare administrative assistant that requested your imaging first. Rosa Cornejo MD IMG DX ORDERABLES * Green Tube HOLD (10/30/2023 10:05 PM EDT) [facility] Green Hold Sample in lab. [facility] Blood Venous Draw / Unknown 10/30/2023 10:05 PM EDT 10/30/2023 10:13 PM EDT Qamar Gallardo MD CHEMISTRY ORDERABLES [facility] [place] [place] [address] * (ABNORMAL) Differential, Automated (10/30/2023 10:05 PM EDT) Pathologist [facility] Neutrophil % 76.6 % [facility] [...] MD HEMATOLOGY ORDERABLE S Performing Organization Address City/State/[facility] Co de Phone Number [facility] [place] [place] [address] * (ABNORMAL) Hemogram (10/30/2023 10:05 PM EDT) [...] Platelet 211 145 - 357 x10(3)/mc L [facility] [...] MD HEMATOLOGY ORDERABLE S Performing Organization Address City/[facility]/ZIP Co de Phone Number [facility] [place] [place] [address] * Hemoglobin A1c (10/30/2023 10:05 PM EDT) [...] [id number] Estimated Average Glucose See note mg/dL [facility] Comment: Estimated Average Glucose not appropriate for patients over 70 years of age. Blood 10/30/2023 10:0 5 PM EDT 10/30/2023 10:12 PM EDT Narrative Resulting Agency Comment Spec In Lab Rosa Cornejo MD CHEMISTRY ORDERABLE S [facility] [place] [place] [address] * Lipid Panel (Reflex Direct LDL) (10/30/2023 10:05 PM EDT) [facility] Cholesterol, Total 218 mg/dL Dorene [facility] Comment: Desirable: ? <200 mg/dL Borderline High: 200-239 mg/dL Higher: ?>bd=068 mg/dL Triglyceride 46 mg/dL [facility] Comment: Normal: ?<150 mg/dL Borderline High: 150-199 mg/dL High: ?200-499 mg/dL Very High: ? >im=337 mg/dL HDL Cholesterol 64 mg/dL [facility] Comment: Females: High Risk: <50 mg/dL Males: High Risk: <40 mg/dL LDL Cholesterol 145 mg/dL [facility] Comment: Desirable: ? <100 mg/dL Above Desirable: 100-129 mg/dL Borderline High: 130-159 mg/dL High: ?160-189 mg/dL Very High: ? >ix=353 mg/dL Lipid Interpretation See Note [facility] [...] individuals with atherosclerotic cardiovascular disease (ASCVD)or LDL >uh=061 mg/dL, use a high-intensity statin (40-80 mg [...] MD CHEMISTRY ORDERABLE S Performing Organization Address [facility] Co de Phone Number [facility] [place] [place] [address] * TSH [place]ber[place] (10/30/2023 10:05 PM EDT) Thyroid Stimulating Hormone 3.35 0.27 - 4.20 mcIU/mL [facility] Comment: Reference Interval (mcIU/mL): Females: ??First Trimester: 0.23-3.88 ??Second Trimester: 0.22-3.90 ??Third Trimester: 0.44-4.66 Blood 10/30/2023 10:0 5 PM EDT 10/30/2023 10:12 PM EDT Narrative Resulting Agency Comment Spec In Lab Rosa Cornejo MD CHEMISTRY ORDERABLE S Performing Organization Address [facility]/ZIP Co de Phone Number [facility] [place] [place] [address] * pro-Brain Natriuretic Peptide (10/30/2023 10:05 PM EDT) NT-proBNP 375 <=449 pg/mL [facility] Blood 10/30/2023 10:0 5 PM EDT 10/30/2023 10:12 PM EDT Narrative Resulting Agency Comment Spec In Lab Rosa Cornejo MD CHEMISTRY ORDERABLE S [facility] [place] [place] [address] * (ABNORMAL) Comprehensive metabolic panel (non-fasting) (10/30/2023 [...] MD CHEMISTRY ORDERABLE S Performing Organization Address City/[facility]/ZIP Co de Phone Number [facility] [place] [address] * Phosphorus (10/30/2023 10:05 PM EDT) Phosphorus 3.3 2.5 - 4.5 mg/dL [facility] Blood 10/30/2023 10:0 5 PM EDT 10/30/2023 10:12 PM EDT Narrative Resulting Agency Comment Spec In Lab Rosa Cornejo MD CHEMISTRY ORDERABLE S [facility] [place] [address] * Magnesium (10/30/2023 10:05 PM EDT) Magnesium 0.86 0.69 - 1.07 mmol/L [facility] Blood 10/30/2023 10:0 5 PM EDT 10/30/2023 10:12 PM EDT Narrative Resulting Agency Comment Spec In Lab Rosa Cornejo MD CHEMISTRY ORDERABLE S Performing Organization Address City/[facility]/ZIP Co de Phone Number [facility] [place] [place] [address] * (ABNORMAL) Troponin (10/30/2023 10:05 PM EDT) [...] can be found in the [facility] Laboratory Test Catalog Troponin - [facility] Laboratory Test Catalog Reference: Fourth Seymour Definition of Myocardial Infarction. Journal of the [employer] 2018;72:5347-2822 Blood 10/30/2023 10:0 5 PM EDT 10/30/2023 10:12 PM EDT Narrative Resulting Agency Comment Spec In Lab Rosa Cornejo MD CHEMISTRY ORDERABLE S Performing Organization Address City/[facility]/ZIP Co de Phone Number [facility] [place] [address] * EKG 12 Lead (10/30/2023 8:21 PM EDT) Ventricular rate 49 BPM MUSE SYSTEM Atrial Rate 49 BPM MUSE SYSTEM P-R Interval 230 ms MUSE SYSTEM QRS Duration 96 ms MUSE SYSTEM Q-T Interval 526 ms MUSE SYSTEM QTC Calculated (Bezet) 475 ms MUSE SYSTEM Calculated P [place] 98 degrees MUSE SYSTEM Calculated R [place] -48 degrees MUSE SYSTEM Calculated T [place] -51 degrees MUSE SYSTEM INTERPRETATION Sinus bradycardia [...] - Reason: Transfer to a Procedural area)1548 ([facility] Unhold - Provider: Admin Adt) fentaNYL (pf) [...] - Reason: Transfer to a Procedural area)1548 ([facility] Unhold - Provider: Admin Adt) midazolam (pf) [...] documented as of this encounter Care Teams Professor Of Religion Relationship Specialty Start Date End Date Rosie Mathews MD [address] [place] [id number] PCP - General Family Medicine 11/25/17 11/23/23 documented as of this encounter
--- OUTSIDE RECORDS SUMMARY | 2024-03-15 08:32 | XMS_ITS | Encounter Summary ---
Author Organization [facility] Address [address] [place] [address] Care Team Providers Care Manager Billing Name Role Phone Kirsten Bateman MD Primary Care Provider [phone] Encounter Details Date Type Department Care Team (Late st Contact Info) Description 01/27/2021 Lab Requisition [facility]ology [facility] Laboratory Medicine - [facility] [address] [place] [address] Outr Resulting Lab, Provider Social History Tobacco [...] Lab MICROBIOLOGY - GENERAL ORDERABLES [facility] [address] [place] [address] * COVID-19 TESTING (01/26/2021 16:45 EDT) COVID-19 rt-PCR Result Negative Negative 01/28/2021 13:31 EDT [facility] Comment: This test has [...] developed and its performance characteristics determined by [facility]. It has not been cleared [...] testing. This test is based on the [facility] COVID-19 Emergency Use Authorization (EUA) assay, with minor modification as defined by the FDA Performed on the [employer] 7 Pro RT-PCR System. Performing Lab [facility] 01/28/2021 13:31 EDT [facility] Swab 01/26/2021 16:4 5 EDT 01/27/2021 15:46 EDT Provider Outr Resulting Lab MICROBIOLOGY - GENERAL ORDERABLES [facility] [address] [place] [address] documented in this encounter Visit Diagnoses Not on filedocumented in this encounter Care Teams Manager Billing Relationship Specialty Start Date End Date Kirsten Bateman MD [address] [place] [address] PCP - General 01/13/10 documented as of this encounter
--- OUTSIDE RECORDS SUMMARY | 2024-03-15 08:32 | XMS_ITS | Encounter Summary ---
Author Organization [facility] Address [facility] [place] [address] Care Team Providers Care Mergers And Acquisitions Manager Name Role Phone Rosie Mathews MD Primary Care Provider [phone] Reason for Visit * Consultation (Routine) - Closed Specialty Diagnoses / Procedures Referred By Contbruce hunt Referred To Contact Audiology Diagnoses Hearing assessment and treatment options Karson John MD [address] [place] [address] [facility] [address] [place] [phone] Referral ID Status Reason Start Date Expiration Date V isits Requested Visits Authorized [id number] Closed Consult, Test & Treat Connection Center 11/22/2017 11/22/2018 1 1 Encounter Details Date Type Department Care Team (Latest Contact Info) Description 11/30/2017 3:15 PM EDT Office Visit Audiology at [address] [address] Georgette Onofre AUD [facility] [place] [address] Sensorineural hearing loss, bilateral; Bilateral [...] first 10-15 years. Ms. Goodrich obtained binaural [facility] in-the-ear hearingaids nine years ago in [place], [place]. She stated she continues to experience [...] tone audiogram. SNR loss is the increased wcvlxr-cr-poven ratio required by an individual to understand [...] not hesitate to contact this Section at [phone] if there are questions regarding this report or its recommendations. Romeo Becker [place] [id number] Attachment: audiogram CC: MD Karson Loo MD Laurmarco a Catherine Edvinjonatanjosue [facility] [address] [place] [id number] documented in this encounter Plan of Treatment Upcoming Encounters Date Type Department Care Team (Late st Contact Info) Description 03/29/2024 11:20 AM EDT Office Visit Cardiology at [address] [place] [address] Izaiah Meyer MD [facility] [place] [address] documented as of this encounter Procedures Procedure [...] tinnitus documented in this encounter Care Teams Mergers And Acquisitions Manager Relationship Specialty Start Date End Date Rosie Mathews MD [address] [place] [address] PCP - General Family Medicine 11/25/17 11/23/23 documented as of this encounter
--- OUTSIDE RECORDS SUMMARY | 2024-03-15 08:32 | XMS_ITS | Referral Summary ---
Author Organization [facility] Address [address] [place] [address] Care Team Providers Care Wordpress Developer Name Role Phone Kirsten Bateman MD Primary Care Provider [phone] Allergies Active Allergy Reactions Criticality Noted Date [...] of Treatment Not on file Care Teams Wordpress Developer Relationship Specialty Start Date End Date Kirsten Bateman MD [address] [place] [address] [facility] - General 01/13/10
--- OUTSIDE RECORDS SUMMARY | 2024-03-15 08:32 | XMS_ITS | Encounter Summary ---
Author Organization [facility] Address [facility] [place] [address] Care Team Providers Care Mobile Equipment Operator Name Role Phone Rosie Mathews MD Primary Care Provider [phone] Encounter Details Date Type Department Care Team (Late st Contact Info) Description 10/30/2023 [place] [address] Jose Lee MD [facility] [place] [address] Social History Tobacco Use Types Packs/Day Years [...] Referring Provider: Bree Patient Location: [facility] HPI: 83 yoF w/ PMHx [...] in the patient condition. Jose Lee MD Filing And Polishing Supervisor documented in this encounter Plan of Treatment Upcoming Encounters Date Type Department Care Team (Late st Contact Info) Description 03/29/2024 11:20 AM EDT Office Visit Cardiology at [address] [place] [address] Izaiah Meyer MD [facility] [place] [address] documented as of this encounter Visit Diagnoses Not on filedocumented in this encounter Care Teams Mobile Equipment Operator Relationship Specialty Start Date End Date Rosie Mathews MD [address] [place] [address] PCP - General Family Medicine 11/25/17 11/23/23 documented as of this encounter
--- OUTSIDE RECORDS SUMMARY | 2024-03-15 08:32 | XMS_ITS | Encounter Summary ---
Author Organization [facility] Address [address] [place] [address] Care Team Providers Care Community Service Manager Name Role Phone Kirsten Bateman MD Primary Care Provider [phone] Encounter Details Date Type Department Care Team (Late st Contact Info) Description 01/14/2010 Abstract Used for ABSTRACTING Data [phone] Kirsten Bateman MD [address] [place] [address] Social History Tobacco Use Types [...] mouth. added in this encounter Care Teams Community Service Manager Relationship Specialty Start Date End Date Kirsten Bateman MD [address] [place] [address] PCP - General 01/13/10 documented as of this encounter
--- OUTSIDE RECORDS SUMMARY | 2024-03-15 08:32 | XMS_ITS | Clinical Summary ---
Author Organization [facility] Address [address] [facility] [place] [place] [address] Care Team Providers Care Food Mixer Repairer Name Role Phone Kirsten Bateman MD Primary Care Provider [phone] Allergies Active Allergy Reactions Criticality Noted Date [...] COVID-19 Vaccine (2022- season) 2024 Care Teams Food Mixer Repairer Relationship Specialty Start Date End Date Kirsten Bateman MD [address] [place] [address] PCP - General 01/13/10
--- OUTSIDE RECORDS SUMMARY | 2024-03-15 08:32 | XMS_ITS | Encounter Summary ---
Author Organization [facility] Address [facility] [place] [address] Care Team Providers Care Auto Service Representative Name Role Phone Rosie Mathews MD Primary Care Provider [phone] Reason for Visit * Reason Comments Skin Lesion * Consultation (Routine) - Closed Specialty Diagnoses / Procedures Referred By John hunt Referred To Contact Dermatology Diagnoses facial skin lesion Procedures pt would like to be seen PRADEEP Rosie Mathews MD [address] [place] [address] [facility] Dermatology [address] [place] [address] Referral ID Status Reason Start Date Expiration Date V isits Requested Visits Authorized [id number] Closed Consult, Test & Treat Connection Center 10/25/2017 10/25/2018 1 1 Encounter Details Date Type Department Care Team (Late st Contact Info) Description 11/25/2017 4:30 PM EDT Office Visit Dermatology at [facility] [address] [place] [address] Call, Radu Go MD [facility] [address] [place] [address] Seborrheic keratosis; Fibrous papule of [...] by Radu Tom MD Resident in Dermatology [facility] Patient seen in conjunction with staff machinist bench: Terri Hale MD Section of Dermatology [facility] * Terri Hale MD - 11/25/2017 [...] AM EDT Office Visit Cardiology at [address] [address] Izaiah Meyer MD [facility] [place] [address] documented as of this encounter Visit Diagnoses Diagnosis Seborrheic keratosis Other seborrheic keratosis Fibrous papule of nose Benign neoplasm of skin of other and unspecified parts of face Skin tags, multiple acquired documented in this encounter Care Teams Auto Service Representative Relationship Specialty Start Date End Date Rosie Mathews MD [address] [place] [address] PCP - General Family Medicine 11/25/17 11/23/23 documented as of this encounter
--- OUTSIDE RECORDS SUMMARY | 2024-03-15 08:32 | XMS_ITS | Encounter Summary ---
Author Organization [facility] Address [address] [place] [address] Care Team Providers Care System Support Specialist Name Role Phone Unavailable Primary Care Provider Unavailabl e Encounter Details Date Type Department Care Team (Late st Contact Info) Description 01/10/2008 Before PRISM Converted Visit (Maple) [facility] - Maple conversion [address] [place] [address] Ray Farooq MD [address] [place] [phone] Social History Tobacco Use Types Packs/Day Years Used Date Smoking Tobacco: Never Assessed Sex and Gender Information Value Date Recorded Sex Assigned at Not on file Gender Identity Not on file Sexual Orientation Not on file documented as of this encounter Consult Notes * Ray Farooq MD - 03/21/2009 2015 EDT [facility] - 01/10/2008 Kirsten Bateman MD [facility] [address] [place] [address] Bateman: Chief complaint: Hearing loss. History of present illness: Xwbod-cduku-xjfi-old female with along history of bilateral hearing [...] aspirin, vitamin E, C, B12, B125 complex, [place], EPA fatty acid, coral calcium complex, potassium chloride, Diovan, and hormone essentials. She has drug allergies to cortisone, Percocet, and hydrocodone. Family history is significant for cancer. Social history: The patient is a nonsmoker, nondrinker. She lives in [place]. Review of systems is significant for allergies, [...] Tosin Farooq MD - MLD Job ID: [id number] Doc ID: [id number] cc: Kirsten Bateman MD cc: Kirsten Bateman MD documented in this encounter Plan of Treatment Not on file documented as of this encounter Visit Diagnoses Not on filedocumented in this encounter
--- OUTSIDE RECORDS SUMMARY | 2024-03-15 08:32 | XMS_ITS | Encounter Summary ---
Author Organization [facility] Address [facility] [place] [address] Care Team Providers Care Fiber Designer Name Role Phone Rosie Mathews MD Primary Care Provider [phone] Encounter Details Date Type Department Care Team (Late st Contact Info) Description 10/30/2023 External Results Transfer Center [facility] [place] [address] Social History Tobacco Use Types Packs/Day Years Used Date Smoking Tobacco: Former Smokeless Tobacco: Never Alcohol Use Standard Drinks/Week Comments Not Currently 0 (1 standard drink = 0.6 oz pur e alcohol) [facility] Utilities Answer Date Recorded In the past 12 months has e Topic, gas, oil, or water [employer] threatened to shut off services in your [...] AM EDT Office Visit Cardiology at [address] [address] Izaiah Meyer MD [facility] [place] [address] documented as of this encounter Procedures Procedure [...] on filedocumented in this encounter Care Teams Fiber Designer Relationship Specialty Start Date End Date Rosie Mathews MD [address] [place] [address] PCP - General Family Medicine 11/25/17 11/23/23 documented as of this encounter
--- OUTSIDE RECORDS SUMMARY | 2024-03-15 08:32 | XMS_ITS | Encounter Summary ---
Author Organization [facility] Address [address] [place] [address] Care Team Providers Care Customer Records Division Supervisor Name Role Phone Kirsten Bateman MD Primary Care Provider [phone] Reason for Visit * Reason Comments Hearing Loss tinnitus Encounter Details Date Type Department Care Team (Latest Contact Info) Description 01/15/2010 10:10 EDT Office Visit [address] [address] Unknown, ProviderMD Ray Farooq MD [address] [place] [address] [address] Sensorineural hearing loss, bilateral; Subjective [...] Ray Farooq MD - 01/28/2010 1108 EDT [facility] PROGRESS/FOLLOWUP NOTE - 01/15/2010 CHIEF COMPLAINT: [...] Farooq MD - Ray Farooq MD - [facility] Job ID: SM Doc ID: [id number] Ext Doc ID: [id number] cc: Kirsten Bateman MD * Ray Farooq [...] tinnitus documented in this encounter Care Teams Customer Records Division Supervisor Relationship Specialty Start Date End Date Kirsten Bateman MD [address] [place] [address] PCP - General 01/13/10 documented as of this encounter
--- OUTSIDE RECORDS SUMMARY | 2024-03-15 08:32 | XMS_ITS | Encounter Summary ---
Author Organization [facility] Address [facility] [place] [address] Care Team Providers Care Airdox Fitter Name Role Phone Rosie Mathews MD Primary Care Provider [phone] Encounter Details Date Type Department Care Team (Late st Contact Info) Description 10/30/2023 [place] [address] Jose Lee MD [facility] [place] [address] Social History Tobacco Use Types Packs/Day Years Used Date Smoking Tobacco: Former Smokeless Tobacco: Never Alcohol Use Standard Drinks/Week Comments Not Currently 0 (1 standard drink = 0.6 oz pur e alcohol) [facility] Utilities Answer Date Recorded In the past 12 months has th e [employer], gas, oil, or water [employer] threatened to shut off services in [...] AM EDT Office Visit Cardiology at [address] [address] Izaiah Meyer MD [facility] [place] [address] documented as of this encounter Visit Diagnoses Not on filedocumented in this encounter Additional Health Concerns Infection Onset Date Last Indicated Resolved Time Rule Out Respiratory 11/02/2023 11/02/2023 024 12:22 PM EDT Rule Out COVID-19 11/02/2023 11/02/2023 11/02/2023 12:22 PM EDT documented as of this encounter Care Teams Airdox Fitter Relationship Specialty Start Date End Date Rosie Mathews MD [address] [place] [address] PCP - General Family Medicine 11/25/17 11/23/23 documented as of this encounter
== END 2024-03-19 23:59 | disposition home or self-care (01) ==
LOC: CR 10:00
PROVIDERS: PCP Family Medicine; Visit Provider Internal Medicine Cardiovascular Disease
DX: Z95.5 Presence of coronary angioplasty implant and graft (principal); Z51.89 Encounter for other specified aftercare
CPT/HCPCS: S9472

== ENCOUNTER 2024-03-22 01:16 | Outpatient (CLI) | payer OTHER, SELFPAY ==
--- NOTE | 2024-03-22 | DI.MRI_ITS ---
Exam(s) MR LUMBAR SPINE WO EXAM: MR LUMBAR SPINE WO CLINICAL HISTORY: Chronic back pain, G89.29. TECHNIQUE: Multiplanar multisequence MRI of the Lumbar spine was performed. COMPARISON: CT CT THORAX ABD/PEL CTA from 11/18/2023 FINDINGS: Bones: The last intervertebral disc space is designated the L5/S1 level for the numbering purpose of this ex amination. The vertebral body heights are well maintained. Alignment: Unremarkable. The marrow signal characteristics are unremarkable. Hemangioma L3. Cord: The conus tip ends at the T12 level. It is of normal size and signal intensity. T12-L1: Severe loss of disc height. Broad-based endplate osteophytes projecting circumferentially. Mild facet degenerative changes. No focal disc herniation is present. Mild central spinal canal cathy nosis.Severe bilateral neural foraminal stenosis. L1-2:Moderate loss of disc height. Circumferentially projecting disc osteophytes. Mild facet degene rative changes. No focal disc herniation is present. Mild central spinal canal stenosis.Mild bilate ral neural foraminal stenosis. L2-3:Severe loss of disc height. Prominent circumferentially projecting endplate osteophytes. Facet degenerative changes, greater on the left. No focal disc herniation is present. Mild central spina l canal stenosis.Severe left and mild right neural foraminal stenosis. L3-4: Severe loss of disc height. Prominent circumferentially projecting endplate osteophytes. Face t degenerative changes.No focal disc herniation is present. Moderate central spinal canal stenosis. Severe bilateral neural foraminal stenosis. L4-5:Severe loss of disc height. Circumferentially projecting disc osteophytes. Facet degenerative changes and ligamentous hypertrophy. No focal disc herniation is present. Ohyz-pu-ftaocehw central spinal canal stenosis.Severe bilateralneural foraminal stenosis. L5-S1: Disc height is normal. The no significant degenerative changes.No focal disc herniation is pr esent. No central spinal canal stenosis.No neural foraminal stenosis. The visualized SI joints and sacrum are unremarkable. Soft tissues: The paraspinal soft tissues are unremarkable. IMPRESSION: Extensive degenerative disc changes and facet degenerative changes from at T12-L1 through L4-5 causin g multilevel bilateral neural foraminal narrowing. There is esps-cn-abqieddq stenosis of the central canal at L4-5. DATA REPOSITORY:
== END 2024-03-22 01:36 ==
LOC: DI 01:16
PROVIDERS: PCP Family Medicine; Visit Provider Family Medicine
DX: M51.35 Other intervertebral disc degeneration, thoracolumbar region (principal)
CPT/HCPCS: 72148

== ENCOUNTER 2024-04-18 12:14 | Outpatient (CLI) | payer OTHER, SELFPAY ==
[2024-04-18 12:29] VITALS: BP 123/63; PULSE 57; RESP 14; TEMP 36.6; O2SAT 94
--- NOTE | 2024-04-18 12:42 | PDOC.PAIN ---
Date of service: 04/18/24 Time of Service: 13:57 Pain Managment Procedure Note Procedure Note Procedure Note: Case was canceled. Patient complained of being lightheaded. Heart rate was high 40s low 50s blood pressure was 120s. She is status post MRI approximately 5 months ago with stenting. At that time she did not have typical chest pain. 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 Recommendation was to follow-up with PCP today but they could not get her in so patient was brought to the ED for evaluation.
--- NOTE | 2024-04-18 13:00 | RT.EKG_ITS ---
APPROVED REPORT Exam: Resting ECG Reason for Exam: irreg HR Patient Location: O HR:52 bpm ECG Measurements Heart Rate 52 AXIS AK 213 P 25 QRSd 107 QRS -32 QT 410 T 117 QTc 381 Conclusion Sinus bradycardia...rate< 60 Borderline prolonged AK interval...AK >212, V-rate 50- 90 Left ventricular hypertrophy...multiple voltage criteria LAFB or lead placement
== END 2024-04-18 12:15 | disposition home or self-care (01) ==
LOC: PC 12:14
PROVIDERS: PCP Family Medicine; Visit Provider Anesthesiology Pain Medicine
DX: Z53.09 Procedure and treatment not carried out because of other contraindication (principal)
CPT/HCPCS: 00123; 93005; 93010; J0665

== ENCOUNTER 2024-04-18 13:46 | Emergency (ER) | payer OTHER, SELFPAY ==
--- NOTE | 2024-04-18 13:45 | RT.EKG_ITS ---
APPROVED REPORT Exam: Resting ECG Reason for Exam: Acute onset dizziness Patient Location: E HR:51 bpm ECG Measurements Heart Rate 51 AXIS IN 229 P 17 QRSd 104 QRS -45 QT 472 T 58 QTc 437 Conclusion Sinus bradycardia...rate< 60 Prolonged IN interval...IN >220, V-rate 50- 90 Incomplete RBBB and LAFB...axis(240,-40), S>R II III aVF Left ventricular hypertrophy...multiple voltage criteria Anterior infarct, old...Q >40mS, abnormal ST-T, V2-V5
[2024-04-18 13:52] VITALS: BP 135/71; PULSE 51; RESP 15; TEMP 36.6; O2SAT 95
--- OUTSIDE RECORDS SUMMARY | 2024-04-18 13:53 | XMS_ITS | Clinical Summary ---
Author Organization [facility] Address [facility] [place] [address] Care Team Providers Care Gravel Inspector Name Role Phone Masood Pierson MD Primary Care Provider [phone] Allergies Active Allergy Reactions Criticality Noted Date [...] inferior HK. No VHD Assessment & Plan (03/28/2024 11:47 AM EDT): No failure by history nor exam. - Diuresis: none - Cardioprotection: as directed by HTN management, continue current regimen. Assessment & Plan (11/24/2023 1:19 PM EDT): No failure by history nor exam. - Diuresis: none - Cardioprotection: as directed for HTN Ascending aorta dilatation 11/24/2023 Overview (11/24/2023): 10/2023 TTE: ascending 46 mm. 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 Continue same management. - losartan 50 - toprol 12.5 - spironolactone 25 Assessment & Plan (11/24/2023 1:19 PM EDT): Very well controlled - losartan 50 - aldactone 25 ASCVD (arteriosclerotic cardiovascular disease) 10/30/2023 Overview (11/24/2023): Cardiac Catheterization: (10/2023) RIGHT dominance Indication: NSTE-ACS LVEDP 15 Artery Lesion Intervention LM mild LAD mild LCx Prox 60 Mid 80 3.5 x 15 Hudson 3.5 x 15 Hudson RCA Mid AoCTO. Collats from Cx 4.0 x 38 Andrea NB: RCA initially intervened; Cx 2 days later Assessment & Plan (03/29/2024 11:41 AM EDT): No angina per history. - Anti-Thrombosis: asa 81, plavix 75 (plavix through 10/2024). - Anti- Lipemic: Lipitor 80 - Anti- Anginals: GTN PRN, Toprol Assessment & Plan (11/24/2023 1:19 PM EDT): [...] Encounters Date Type Department Care Team Description 04/06/2024 [place] [phone] Emile Robles MD 03/29/2024 11:20 AM EDT Office Visit Cardiology at [address] [address] Izaiah Meyer MD ASCVD (arteriosclerotic cardiovascular disease); Hyperpiesia; Cardiomyopathy, ischemic 03/29/2024 Travel 02/27/2024 Telephone Cardiology at [address] [address] Izaiah Meyer MD 02/24/2024 11:10 PM EDT Ancillary Procedure Radiology Library at [facility] [place] [id number] Masood Pierson MD 02/24/2024 External [place] [phone] from Last 3 Months Social History Tobacco Use Types Packs/Day Years Used Date Smoking Tobacco: Former Smokeless Tobacco: Never Alcohol Use Standard Drinks/Week Comments Not Currently 0 (1 standard drink = 0.6 oz pur e alcohol) [facility] Utilities Answer Date Recorded In the [...] Sign Reading Time Taken Comments Blood Pressure 148/72 03/29/2024 11:41 AM EDT Pulse 60 03/29/2024 11:41 AM EDT Temperature 37 ??C (98.6 ??F) 11/03/2023 11:06 AM EDT Respiratory Rate 18 11/03/2023 11:06 AM EDT Oxygen Saturation 97% 11/03/2023 11:06 AM EDT Inhaled Oxygen Concentration - - Weight 68 kg (150 lb) 03/29/2024 11:41 AM EDT Height 152.4 cm (5') 03/29/2024 11:41 AM EDT Body Mass Index 29.29 03/29/2024 11:41 AM EDT Plan of Treatment Upcoming Encounters Date Type Department Care Team (Late st Contact Info) Description 10/24/2024 11:00 AM EDT Office Visit Cardiology at [address] [place] [phone] Izaiah Meyer MD [facility] [place] [address] Health Maintenance Due Date Last Done Comments [...] CT CHEST Routine 02/24/2024 11:05 PM EDT ECG SCAN 02/24/2024 12:00 AM EDT ECG SCAN 02/24/2024 12:00 AM EDT LAB SCAN 02/24/2024 12:00 AM EDT DIAGNOSTIC RADIOLOGY SCAN 02/24/2024 12:00 AM EDT from Last 3 Months Results * External Cardiology Result (02/24/2024 11:10 PM EDT) Anatomical Region Laterality Modality Other Historical Provider EXTERNAL CARDIOLO GY RESULT * Film Library- Storage Only CT Chest (02/24/2024 11:05 PM EDT) Narrative PIETER MEJIA - 02/24/2024 11:05 PM EDT This exam is auto-finalizing. It's purpose is for storage only. Masood Pierson MD IMG FILM LIBRARY ORD ERABLES JACKIE [place], [place] * Scan Doc: Lab (02/24/2024 12:00 AM EDT) Narrative 02/24/2024 12:00 AM EDT Ordered by an unspecified provider. Scanning Provider MEDIA MGR SCAN EXT O RDR/RSLT * Scan Doc: Diagnostic Radiology (02/24/2024 12:00 AM EDT) Anatomical Region Laterality Modality Other Narrative 02/24/2024 12:00 AM EDT Ordered by an unspecified provider. Scanning Provider MEDIA MGR SCAN EXT O RDR/RSLT * Scan Doc: ECG (02/24/2024 12:00 AM EDT) Only the most recent of2 resultswithin the time period is included. Narrative 02/24/2024 12:00 AM EDT Ordered by an unspecified provider. Scanning Provider MEDIA MGR SCAN EXT O RDR/RSLT from Last 3 Months Advance Directives * Attempt Cardiopulmonary Resuscitation - Inpatient (Latest Code Status on File) Date Activated Date Inactivated Comments 10/30/2023 9:58 PM 11/03/2023 7:13 PM Question Answer Comments Code Status decision made by: Patient Care Teams Gravel Inspector Relationship Specialty Start Date End Date Masood Pierson MD [address] [place] [address] PCP - General Family Medicine 11/24/23
--- OUTSIDE RECORDS SUMMARY | 2024-04-18 13:53 | XMS_ITS | Encounter Summary ---
Author Organization [facility] Address [facility] [place] [address] Care Team Providers Care Senior Relationship Manager Name Role Phone Masood Pierson MD Primary Care Provider [phone] Reason for Visit * Reason Comments Medication Refill Encounter Details Date Type Department Care Team (Late st Contact Info) Description 04/06/2024 [place] [address] Emile Robles MD [facility] [place] [address] Social History Tobacco Use Types Packs/Day Years Used Date Smoking Tobacco: Former Smokeless Tobacco: Never Alcohol Use Standard Drinks/Week Comments Not Currently 0 (1 standard drink = 0.6 oz pur e alcohol) [facility] Utilities Answer Date Recorded In the past 12 months has [employer] electric, gas, oil, or water company threatened [...] 11:00 AM EDT Office Visit Cardiology at [address] [phone] Izaiah Meyer MD [facility] [place] [place] [address] documented as of this encounter Visit Diagnoses Not on filedocumented in this encounter Care Teams Senior Relationship Manager Relationship Specialty Start Date End Date Masood Pierson MD [address] [place] [address] PCP - General Family Medicine 11/24/23 documented as of this encounter
--- OUTSIDE RECORDS SUMMARY | 2024-04-18 13:53 | XMS_ITS | Encounter Summary ---
Author Organization [facility] Address [facility] [place] [address] Care Team Providers Care X Ray Operator Name Role Phone Masood Pierson MD Primary Care Provider [phone] Reason for Visit * Reason Comments Coronary Artery Disease Encounter Details Date Type Department Care Team (Latest Contact Info) Description 03/29/2024 11:20 AM EDT Office Visit Cardiology at [address] [place] [address] Izaiah Meyer MD [facility] [address] ASCVD (arteriosclerotic cardiovascular disease); Hyperpiesia; Cardiomyopathy, ischemic Social History Tobacco Use Types Packs/Day Years Used Date Smoking Tobacco: Former Smokeless Tobacco: Never Alcohol Use Standard Drinks/Week Comments Not Currently 0 (1 standard drink = 0.6 oz pur e alcohol) [facility] Utilities Answer Date Recorded In [...] Pulse 60 03/29/2024 11:41 AM EDT Temperature - - Respiratory Rate - - Oxygen Saturation - - Inhaled Oxygen Concentration - - Weight 68 kg (150 lb) 03/29/2024 11:41 AM EDT Height 152.4 cm (5') 03/29/2024 11:41 AM EDT Body Mass Index 29.29 03/29/2024 11:41 AM EDT documented in this encounter Progress Notes * Kira Gutiérrez APRN - 03/29/2024 11:20 AM EDT Images from the original note were not included. Subjective: Patient ID: Lyla Goodrich is a 83 y.o. female who presents on follow-up for: Chief Complaint Patient presents with Coronary Artery Disease HPI Last seen by Dr. Meyer 11/2023, at which time no changes were made. Since then, she has gone to the emergency room twice for back and chest pain which concluded with anegative cardiac workup. She is currently seeing PT and her GP for her back pain. No bleeding on DAPT. Denies chest pain, palpitations, SOB/DIOR, PND. She enjoys painting and spending time with her grandchildren and great grandchildren. Current Outpatient Medications Medication Instructions ASCORBIC ACID [...] Oral spironolactone (ALDACTONE) 25 mg, Oral, DAILY Patient Active Problem List Diagnosis Cardiomyopathy, ischemic 10/2023 (at time of NSTE-ACS): EF 64%, basal inferior HK. No VHD Hyperpiesia ASCVD (arteriosclerotic cardiovascular disease) Cardiac Catheterization: (10/2023) RIGHT dominance Indication: NSTE-ACS LVEDP 15 Artery Lesion Intervention LM mild LAD mild LCx Prox 60 Mid 80 3.5 x 15 Andrea 3.5 x 15 War RCA Mid AoCTO. Collats from Cx 4.0 x 38 Andrea NB: RCA initially intervened; Cx 2 days later Ascending aorta dilatation 10/2023 TTE: ascending 46 mm. Objective: BP 148/72 (BP Location (NBP): Right arm, Patient Position: Sitting, BP Cuff Sizes: Adult (25-34 cm)) Pulse 60 Ht 152.4 cm (5') Wt 68 kg (150 lb) BMI 29.29 kg/m?? Gen: pleasant female in NAD Cor: rrr, s1/s2 of nl character and amplitude, no pathologic m/r/g. Estimated RAP not elevated. Carotids with normal upstroke without bruit. Pulm: CTAB. Normal diaphragmatic movement without use of accessory muscles Assessment and Plan: ASCVD (arteriosclerotic cardiovascular disease) No angina per history. - Anti-Thrombosis: asa 81, plavix 75 (plavix through 10/2024). 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 Continue same management. - losartan 50 - toprol 25 - spironolactone 25 Cardiomyopathy, ischemic No failure by history nor exam. - Diuresis: none - Cardioprotection: as directed by HTN management, continue current regimen. RTC 6 months Kira Guitérrez APRN Cardiology Attending Addendum I shared this visit with Kira Gutiérrez APRN, and helped guide medical decision-making. We reviewed the relevant clinical data together, performed a physical exam, and updated the patient and/or family of the treatment plan. Patient has shoulder/neck pain which increases with head turning/tilting, suggestive of cervical arthritis and radiculopathy. Repeated negative evaluations for cardiac causes reassuring documented in this encounter Miscellaneous Notes * Assessment & Plan Note - Kira Gutiérrez APRN - 03/28/2024 11:47 AM EDT Associated Problem(s): Cardiomyopathy, ischemic No failure by history nor exam. - Diuresis: none - Cardioprotection: as directed by HTN management, continue current regimen. * Assessment & Plan Note - Kira Gutiérrez APRN - 03/28/2024 11:46 AM EDT Associated Problem(s): Hyperpiesia Well controlled on current regimen. Continue same management. - losartan 50 - toprol 12.5 - spironolactone 25 * Assessment & Plan Note - Kira Gutiérrez APRN - 03/28/2024 11:45 AM EDT Associated Problem(s): ASCVD (arteriosclerotic cardiovascular disease) No angina per history. - Anti-Thrombosis: asa 81, plavix 75 (plavix through 10/2024). - Anti- Lipemic: Lipitor 80 - Anti- Anginals: GTN PRN, Toprol documented in this encounter Plan of Treatment Upcoming Encounters Date Type Department Care Team (Late st Contact Info) Description 10/24/2024 11:00 AM EDT Office Visit Cardiology at [address] [phone] Izaiah Meyer MD [facility] [address] documented as of this encounter Visit Diagnoses Diagnosis ASCVD (arteriosclerotic cardiovascular disease) Unspecified cardiovascular disease Hyperpiesia Unspecified essential hypertension Cardiomyopathy, ischemic Other specified forms of chronic ischemic heart disease documented in this encounter Care Teams X Ray Operator Relationship Specialty Start Date End Date Masood Pierson MD [address] [place] [address] PCP - General Family Medicine 11/24/23 documented as of this encounter
--- OUTSIDE RECORDS SUMMARY | 2024-04-18 13:53 | XMS_ITS | Encounter Summary ---
Author Organization [facility] Address [facility] [place] [address] Care Team Providers Care Power Engineer Name Role Phone Masood Pierson MD Primary Care Provider [phone] Encounter Details Date Type Department Care Team (Late st Contact Info) Description 02/27/2024 Telephone Cardiology at [address] [place] [address] Izaiah Meyer MD [facility] [place] [address] Social History Tobacco Use Types Packs/Day Years Used Date Smoking Tobacco: Former Smokeless Tobacco: Never Alcohol Use Standard Drinks/Week Comments Not Currently 0 (1 standard drink = 0.6 oz pur e alcohol) [facility] Utilities Answer Date Recorded In the past 12 months has [employer], gas, oil, or water [employer] threatened to shut off services in your [...] 3:30 PM EDT Lyla was seen at [facility] this past Tuesday for chest pain and returned to the ED Tuesday for back pain.Per patient both times it was determined she was having no cardiac issues but she was told to let her cytology manager know. At present she is not [...] 11:00 AM EDT Office Visit Cardiology at [address] [phone] Izaiah Meyer MD [facility] [place] [address] documented as of this encounter Visit Diagnoses Not on filedocumented in this encounter Care Teams Power Engineer Relationship Specialty Start Date End Date Masood Pierson MD [address] [place] [address] PCP - General Family Medicine 11/24/23 documented as of this encounter
--- OUTSIDE RECORDS SUMMARY | 2024-04-18 13:53 | XMS_ITS | Encounter Summary ---
Author Organization [facility] Address [facility] [place] [address] Care Team Providers Care Crisis Nurse Name Role Phone Masood Pierson MD Primary Care Provider Encounter Details Date Type Department Care Team (Latest Contact Info) Description 03/29/2024 Travel Social History Tobacco Use Types Packs/Day [...] 11:00 AM EDT Office Visit Cardiology at [address] [place] [address] Izaiah Meyer MD [facility] [place] [address] documented as of this encounter Visit Diagnoses Not on filedocumented in this encounter Care Teams Crisis Nurse Relationship Specialty Start Date End Date Masood Pierson MD [address] [place] [address] PCP - General Family Medicine 11/24/23 documented as of this encounter
--- OUTSIDE RECORDS SUMMARY | 2024-04-18 13:53 | XMS_ITS | Encounter Summary ---
Author Organization [facility] Address [facility] [place] [address] Care Team Providers Care Blocker And Polisher Gold Wheel Name Role Phone Masood Pierson MD Primary Care Provider [phone] Encounter Details Date Type Department Care Team (Late st Contact Info) Description 02/24/2024 External Results Transfer Center [facility] [place] [phone] Social History Tobacco Use Types Packs/Day Years Used Date Smoking Tobacco: Former Smokeless Tobacco: Never Alcohol Use Standard Drinks/Week Comments Not Currently 0 (1 standard drink = 0.6 oz pur e alcohol) [facility] Utilities Answer Date Recorded In the past 12 months has [employer], gas, oil, or water [employer] threatened to shut off services in your [...] 11:00 AM EDT Office Visit Cardiology at [address] [place] [address] Izaiah Meyer MD [facility] [place] [address] documented as of this encounter Procedures Procedure Name Priority Date/Time Associated Diagnosis Comments MISC EXTERNAL CARDIOLOGY RESULT Routine 02/24/2024 11:10 PM EDT documented in this encounter Results * External Cardiology Result (02/24/2024 11:10 PM EDT) Anatomical Region Laterality Modality Other Historical Provider EXTERNAL CARDIOLO GY RESULT documented in this encounter Visit Diagnoses Not on filedocumented in this encounter Care Teams Blocker And Polisher Gold Wheel Relationship Specialty Start Date End Date Masood Pierson MD [address] [place] [address] PCP - General Family Medicine 11/24/23 documented as of this encounter
--- OUTSIDE RECORDS SUMMARY | 2024-04-18 13:54 | XMS_ITS | Encounter Summary ---
Author Organization [facility] Address [facility] [place] [address] Care Team Providers Care Funds Development Director Name Role Phone Masood Pierson MD Primary Care Provider [phone] Encounter Details Date Type Department Care Team [...] 11:00 AM EDT Office Visit Cardiology at [address] [place] [address] Izaiah Meyer MD [facility] [place] [place] [address] documented as of this encounter Visit Diagnoses Not on filedocumented in this encounter Care Teams Funds Development Director Relationship Specialty Start Date End Date Masood Pierson MD [address] [place] [address] PCP - General Family Medicine 11/24/23 documented as of this encounter
--- OUTSIDE RECORDS SUMMARY | 2024-04-18 13:54 | XMS_ITS | Encounter Summary ---
Author Organization Formerly [facility] Address [facility] [place] [address] Care Team Providers Care Chute Loader Name Role Phone Rosie Mathews MD Primary Care Provider [phone] Reason for Referral * Consultation (Routine) - Authorized Specialty Diagnoses / Procedures Referred By Contac t Referred To Contact Cardiology Diagnoses 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 Rosa Hugo MD [facility] [place] [address] Cardiac Rehab, [address] [place] [address] Referral ID Status Reason Start Date Expiration Date Visits Requested Visits Authorized [id number] Authorized Consult, Test & Treat Non PCP 11/03/2023 05/01/2024 36 36 * Home Health Care (Routine) - Authorized Specialty Diagnoses / Procedures Referred By Contac t Referred To Contact Diagnoses Unstable angina Rosa Hugo MD [facility] [place] [address] Referral ID Status Reason Start Date Expiration Date Visits Requested Visits Authorized [id number] Authorized Consult, Test & Treat 11/03/2023 05/01/2024 999 999 Reason for Visit * Auth/Cert (Routine) Specialty Diagnoses / Procedures Referred By John t Referred To Contact Diagnoses Unstable angina Chest pain NSTEMI Procedures CARDIAC CATHETERIZATION Rosa Dewey MD [facility] [place] [address] [facility] Referral ID Status Reason Start Date Expiration Date Visits Re quested Visits Authorized [id number] 1 1 Encounter Details Date Type Department Care Team (Latest Contact Info) Description 10/30/2023 5:11 PM EDT - 11/03/2023 5:13 PM EDT Hospital Encounter Heart and Vascular Unit Level 4 [place] [id number] Rosa Dewey MD [facility] [address] Jean Laboy MD [facility] [place] [address] Rosa Hugo MD [facility] [place] [address] 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; Tachycardia; Unstable angina Discharge Disposition: Home Social History Tobacco Use Types Packs/Day Years Used Date Smoking Tobacco: Former Smokeless Tobacco: Never Alcohol Use Standard Drinks/Week Comments Not Currently 0 (1 standard drink = 0.6 oz pur e alcohol) [facility] Utilities Answer Date Recorded In the past 12 months has e [employer], gas, oil, or water [employer] threatened to shut off services in your [...] hypertension and hyperlipidemia who presented to [facility] as a transfer from [facility] as a possible STEMI alert with acute onset chest pain. The patient reports that her symptoms initially began on Tuesday when she was walking [place] and experienced bilateral arm heaviness while walking with no other symptoms. Then, this afternoon shereports developing bilateral achy shoulder pain and nonradiating substernal left-sided chest pressure that was 7/10 in severity after coming home from [facility]. The patient denies any associated fevers, chills, diaphoresis, lightheadedness/dizziness, syncope/presyncope, dyspnea (either at rest or on exertion), palpitations, orthopnea, or PND. The patient subsequently presented to [facility] as a walk-in for further evaluation. [...] repeat, her TRU resolved. Cardiology at [facility] was consulted for transfer; the patient was loaded with aspirin 324 mg and ticagrelor 180 mg, started on a heparin drip, and given nitroglycerin with improvement in chest pain. Upon arrival to [facility], the patient was taken directly to the Sap Payroll Consultant. Two lesions were discovered: one in the prox RCA (felt to almost be a TRANSFORMER TESTER but they were able to wire, balloon, [...] Data: Admission Labs: Discharge Labs: Recent Labs 11/03/2334511/02/233411/01/23220511/01/23 0309 10/31/23 0305 WBC 8.3 10.0* 10.4* 8.7 11.5* HGB 13.1 13.8 14.0 12.5 12.6 PLATELET 181 198 197 184 206 Recent Labs 11/03/2334511/02/233411/01/239 10/31/23 0137 10/30/23 2205 NA 139 136 137 140 142 K 4.0 3.6 3.4* 3.9 3.9 CL 108* 102 105 107 105 CO2 19* 25 24 25 27 BUN 13 9 14 13 14 CREATININE 0.83 0.83 0.83 0.81 0.85 GLUCOSE 105 125 100 114 121 Recent Labs 11/03/2334511/02/235 11/01/23 0309 CALCIUM 8.2* 9.0 8.6 MAGNESIUM [...] dose administered prior to arrival in the label printing machinist. Recommended anti-platelet/anti-thrombotic regimen: Continue aspirin 81 mg [...] and low lung volumes. Findings similar to excel expert radiograph from CT 10/30/2023. Pending Studies and [...] 10:40 AM Izaiah Meyer MD Cardiology at [place] Arrive at: [facility] [address] [phone] Future Orders Complete By Expires Referral to Cardiac Rehab [[id number] Custom] As directed Process Instructions: If no progress note charted, please enter Clinical details in comments. Scheduling Instructions: Questions: My question or request is: STEMI. Cardiac rehab at [facility]. Referral to Home Health [[id number] Custom] As directed Process Instructions: If no progress note charted, please enter Clinical details in comments. Scheduling Instructions: Comments: Please evaluate Adin Santos for admission to Home Health. [address] [facility] [address] (home) Date of : 1940 Inpatient DOCUMENTATION FOR VNA SERVICES (INCLUDING THOSE PATIENTS WITH MEDICARE COVERAGE REQUIRING HOME VNA SERVICES AND/OR HOSPICE SERVICES) PATIENT'S LOCATION: Adin Santos [address] [facility] [address] (home) Cell: Telephone Information: Senior Qa Tester's Name: self In discussion with the attending physician, it is certified that this patient is under their care and that they, or a Nurse Practitioner, Clinical Nurse specialist or Physician Communications Technologist who is working directly with them, had a face to face encounter that meets the physician face to face encounter requirements with this patient on 05/16/24 The encounter with the patient was in [...] regarding health issues HOME HEALTH CARE AGENCY: [facility] [address] [place] [address] START OF CARE: within 24-48 hours of [...] / [facility] [address] . All VNA agencies which cover the area of patient's [...] Mathews MD / Dr. Masood Pierson [address] [place] [address] 11/09/23 1:55 PM arrival for 2:10 PM appointment Entertainment Musician: Izaiah Meyer MD [address] [place] [address] , 11/24/2023 10:40 AM Your Inpatient Medical Team at [facility] Name(s) of your inpatient provider(s): Attending physician: Rosa Hugo MD Resident physicians: Emile Robles MD; Elmer Tamez MD If you have non-emergent questions, prior to your follow-up visit call: Tuesday-Tuesday between the hours of 8AM-5PM please call the Cardiology Clinic [phone] to speak with a nurse. All other hours please call the Hospital Curriculum Supervisor [phone] and ask to speak to the undercutter on-call. Your Primary Care Provider Rosie Mathews MD [phone] For questions regarding this document or issues relating to this hospitalization on the Medical Service, please contact your inpatient physician through the [facility] Curriculum Supervisor . Issues afterhours and on weekends will be handled by the Entertainment Musician staff on-call. Associated attestation - Rosa Hugo [...] MD / Dr. Masood Pierson [address] [place] [address] 11/09/23 1:55 PM arrival for 2:10 PM appointment Entertainment Musician: Izaiah Meyer MD [address] [place] [address] , 11/24/2023 10:40 AM Your Inpatient Medical Team at [facility] Name(s) of your inpatient provider(s): Attending physician: Rosa Hugo MD Resident physicians: Emile Robles MD; Elmer Tamez MD If you have non-emergent questions, prior to your follow-up visit call: Tuesday-Tuesday between the hours of 8AM-5PM please call the Cardiology Clinic [phone] to speak with a nurse. All other hours please call the Hospital Curriculum Supervisor [phone] and ask to speak to the undercutter on-call. Your Primary Care Provider Rosie Mathews MD [phone] documented in this encounter Medications at Time [...] hypertension and hyperlipidemia who presented to [facility] as a transfer from [facility] as a possible STEMI alert with [...] hypertension and hyperlipidemia who presented to [facility] as a transfer from [facility] as a possible STEMI alert with [...] Resident on Cardiology Service Cardiology S1 (Pager [phone]) Note written in conjunction with Claudio Perla [facility] Medical Student, MS3 Associated attestation - [...] Webb - 11/01/2023 11:25 AM EDT Director International Encounter Note Patient Name: Adin Santos : [id number] MR#: [id number] Admit Date: 10/30/2023 5:11 PM Hospital Day 2 days Narrative: Self initiated visit to patient for Spiritual support in a regular unit rounds. Assessment: Patient is in the bathroom at the time of this visit. Not a good time for Furnace Operator And Tender visit. Intervention and Outcome: An attempted visit [...] hypertension and hyperlipidemia who presented to [facility] as a transfer from [facility] as a possible STEMI alert with [...] 37.9 PLATELET 184 206 204 Recent Labs 11/01/2330810/31/2313610/30/23 2205 NA 137 140 142 K 3.4* 3.9 3.9 CL 105 107 105 CO2 24 25 27 BUN 14 13 14 CREATININE 0.83 0.81 0.85 Recent Labs 10/30/235 AST 36* ALT 17 ALKPHOS 54 BILITOT [...] and low lung volumes. Findings similar to excel expert radiograph from CT 10/30/2023. Scheduled Medications: [AUG [...] hypertension and hyperlipidemia who presented to [facility] as a transfer from [facility] as a possible STEMI alert with [...] Resident on Cardiology Service Cardiology S1 (Pager [phone]) Note written in conjunction with Claudio Perla [facility] Medical Student, MS3 Associated attestation - [...] hypertension and hyperlipidemia who presented to [facility] as a transfer from [facility] as a possible STEMI alert with acute onset chest pain. Active Problems: Active Hospital Problems Diagnosis Unstable angina Resolved Hospital Problems No resolved problems to display. 24 hr events: - Cath'd yesterday with lesion in the proximal RCA (initially thought it was TRANSFORMER TESTER but they were ableto wire, balloon and [...] focal deficit Labs Recent Labs 10/31/23 0305 10/31/2313610/30/235 WBC 11.5* 10.6* 9.0 HGB 12.6 13.0 13.3 HCT 37.1 37.9 39.1 PLATELET 206 204 211 Recent Labs 10/31/23 01310/30/23 2205 NA 140 142 K 3.9 3.9 CL 107 105 CO2 25 27 BUN 13 14 CREATININE 0.81 0.85 Recent Labs 10/30/23 2205 AST 36* ALT 17 ALKPHOS 54 BILITOT 0.5 Recent Labs 10/31/237 10/30/23 2205 CALCIUM 8.6 8.8 MAGNESIUM 0.83 0.86 PHOS 3.2 3.3 Recent Labs 10/31/23 0305 INR 1.1 PT 12.6* PTT 67* Troponins [...] and low lung volumes. Findings similar to excel expert radiograph from CT 10/30/2023. TTE (10/30): Interpretation [...] hypertension and hyperlipidemia who presented to [facility] as a transfer from [facility] as a possible STEMI alert with [...] Resident on Cardiology Service Cardiology S1 (Pager [phone]) Note written in conjunction with Claudio Perla [facility] Medical Student, MS3 Associated attestation - [...] PCP: Rosie Mathews MD PCP phone number: [phone] Date of Admission: 10/30/2023 ( Hospital Day 0 days ) Attending:Rosa Cornejo MD ID: Adin Santos is a 83 y.o. female PMH significant for hypertension and hyperlipidemia who presented to [facility] as a transfer from [facility] as a possible STEMI alert with acute onset chest pain. The patient reports that her symptoms initially began on Tuesday when she was walking to [facility] and experienced bilateral arm heaviness while walking with no other symptoms. Then, this afternoon shereports developing bilateral achy shoulder pain and nonradiating substernal left-sided chest pressure that was 7/10 in severity after coming home from [facility]. The patient denies any associated fevers, chills, diaphoresis, lightheadedness/dizziness, syncope/presyncope, dyspnea (either at rest or on exertion), palpitations, orthopnea, or PND. The patient subsequently presented to [facility] as a walk-in for further evaluation. [...] repeat, her TRU resolved. Cardiology at [facility] was consulted for transfer; the patient was loaded with aspirin 324 mg and ticagrelor 180 mg, started on a heparin drip, and given nitroglycerin with improvement in chest pain. Upon arrival to [facility], the patient was taken directly to the Sap Payroll Consultant. 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 Findings similar to excel expert radiograph from CT 10/30/2023. Assessment & Plan: Adin Santos is a 83 y.o. female PMH significant for hypertension and hyperlipidemia who presented to [facility] as a transfer from [facility] as a possible STEMI alert with [...] HTN HLD transferred with chest from [facility]. BP 217/68, HR [...] Contact information for [facility] [place] [address] [place] [address] TANESHA BOYCE confirmed with [facility] that they will see the patient [...] N/A Patient is insured through: Primary Insurance: [employer] MANAGED MEDICARE Payor: [employer] MEDICARE / Plan: [employer] MANAGED MEDICARE PPO / Product Type: *No [...] in the room. Electrolytes replaced, see MAR. slab off mill tender sites remained C/D/I with baseline ecchymosis unchanged. Pt complained of back pain, lidocaine patch given. Right IV infiltrated during infusion, patient is marked with sharpie, IV removed. See flowsheet for I+O's and safety rounding. Patient is able to make needs known and call capps within reach. PLAN MOVING FORWARD: Monitor Tele, control BP, monitor label printing machinist sites, D/C Planning INDIVIDUALIZED FALL PREVENTION INTERVENTIONS: [...] RN - 11/02/2023 11:36 AM EDT Adin Catherine Caryjosue was seen today by Cardiac Rehabilitation for: [...] an outpatient cardiac rehabilitation program at [facility] was discussed. Patient [...] and above on RA. PT went to label printing machinist today. Left fem site oozed throughout shift, [...] MOVING FORWARD: Monitor Tele, control BP, monitor label printing machinist sites, D/C Planning INDIVIDUALIZED FALL PREVENTION INTERVENTIONS: [...] From: Transfer from another hospital Location: [facility] Reason for Hospitalization: chest pain Covid Vaccination Status: 1st, 2nd & booster Past medical History: No past medical history on file. Hospitalizations Within the Past 30 Days: no previous admission in last 30 days Current Decision-Making Capacity: Self If AD's have not been completed the following surrogate would be surrogate decision maker per [place] surrogate decision making law. (Only good for 180 days) Any patient receiving care in [place] must abide by [place] law. The hierarchy for surrogate decision making [...] toilet seat Home Address confirmed as: [address] [place] [phone] Social & Family Supports: All names listed below confirmed with patient as current and correct Extended Emergency Contact Information Primary Emergency Contact: Iris Downing Address: [address] [place], [place] [address] [place] [address] Mobile Relation: Child Secondary Emergency Contact: Karen More Address: [address] [facility] Mobile Relation: Child Current Care Provided by: self Provides Primary Care For: no one Caregiver if needed: child(emmanuel), adult Quality of Family relationships: involved, supportive Community Resources being provided currently: other (see comments) (receives [facility] services at home (1xweekly)) Behavioral [...] Insurance: N/A Prescription Coverage: Yes Preferred Pharmacy: [id number] - [place], [place] - [address] [facility] [address] [facility] [address] Status: Patient is a : No Primary Care Provider listed: Masood Pierson MD [phone] Patient/Caregiver Goals of Treatment: home when MR Potential Needs for Transition of Care: home health care Agency Referrals: Not Applicable I have met with the patient to: discuss discharge planning needs. provide the [facility], Office of Care Management letter from the Contour Grinder pertaining to rehab referrals. provide a letter describing our affiliations within the [facility] and educate about their right to choose where referrals are sent. provide a list of Home Health Agencies / Durable Medical Equipment vendors which serve their preferred geographic area. provided patient with [facility] Star Quality Rating handout. They have requested referrals to: [facility] [address] [place] [address] Note routed to a Resp Ther who will communicate referrals to facilities and [...] results. PO hydralazine added for BP control. slab off mill tender sites remain C/D/I, ecchymosis unchanged th roughout shift. See flowsheet for I+O's and safety rounding. Patient is able to make needs known and call capps within reach. PLAN MOVING FORWARD: Monitor Tele, control CP and BP, NPO at MD for cath, monitor label printing machinist sites, D/C Planning INDIVIDUALIZED FALL PREVENTION INTERVENTIONS: [...] AM EDT Office Visit Cardiology at [address] [place] [address] Izaiah Meyer MD [facility] [place] [address] Scheduled Referrals Name Type Priority Associated Diagnoses [...] LABORATORY Neutrophil Absolute 5.28 1.70 - 6.10 x10(3)/ L [facility] Lymph % 15.2 % [facility] Lymphocytes Abs 1.3 0.9 - 3.2 x10(3)/[facility] LABORATORY Monocyte % 16.9 % [facility] Monocyte Abs 1.4(H) 0.3 - 0.9 x10(3)/[facility] LABORATORY Eos % 3.7 % [facility] Eosinophils Abs 0.3 0.0 - 0.4 x10(3)/[facility] LABORATORY Basophil % 0.5 % [facility] Baso Absolute 0.0 0.0 - 0.1 x10(3)/[facility] LABORATORY Immature Gran % 0.40 % [facility] Comment: Immature granulocytes(IG's)percentage and absolute count will include metamyelocytes, myelocytes, and promyelocytes. Blood smears from CBCs yielding IG's will be scanned manually for concordance. If this scan disagrees with the automated IG or if promyelocytes are noted, a manual differential will be performed. Immature Gran Absolute 0.03 0.00 - 0.04 x10(3)/ L [facility] Blood 11/03/2023 3:46 AM EDT 11/03/2023 4:11 AM EDT Narrative Resulting Agency Comment Spec In Lab Qamar Gallardo MD HEMATOLOGY ORDERABLE S [facility] [place] [address] * (ABNORMAL) Hemogram (11/03/2023 3:46 AM EDT) [facility] NRBC% auto 0.0 % [facility] NRBC Absolute 0.000 0.000 - 0.000 x10(3)/ L [facility] Blood 11/03/2023 3:46 AM EDT 11/03/2023 4:11 AM EDT Narrative Resulting Agency Comment Spec In Lab Qamar Gallardo MD HEMATOLOGY ORDERABLE S [facility] [place] [address] * Phosphorus (11/03/2023 3:46 AM EDT) Phosphorus 3.2 2.5 - 4.5 mg/dL [facility] Comment:result rechecked-KS Blood 11/03/2023 3:46 AM EDT 11/03/2023 4:11 AM EDT Narrative Resulting Agency Comment Spec In Lab Rosa Cornejo MD CHEMISTRY ORDERABLE S Performing Organization Address City/[facility]/ZIP Co de Phone Number [facility] [place] [address] * Magnesium (11/03/2023 3:46 AM EDT) Magnesium 0.90 0.69 - 1.07 mmol/L [facility] Blood 11/03/2023 3:46 AM EDT 11/03/2023 4:11 AM EDT Narrative Resulting Agency Comment Spec In Lab Rosa Cornejo MD CHEMISTRY ORDERABLE S Performing Organization Address City/[facility]/ZIP Co de Phone Number [facility] [place] [address] * (ABNORMAL) Basic Metabolic Panel (non-fasting) (11/03/2023 [...] CHEMISTRY ORDERABLE S [facility] [place] [id number] * EKG 12 Lead (11/02/2023 12:44 PM EDT) Ventricular rate 83 BPM MUSE SYSTEM Atrial Rate 83 BPM MUSE SYSTEM P-R Interval 216 ms MUSE SYSTEM QRS Duration 90 ms MUSE SYSTEM Q-T Interval 384 ms MUSE SYSTEM QTC Calculated (Bezet) 451 ms MUSE SYSTEM Calculated P Bandy 92 degrees MUSE SYSTEM Calculated R Bandy -51 degrees MUSE SYSTEM Calculated T Bandy -33 degrees MUSE SYSTEM INTERPRETATION Sinus rhythm [...] Cells Raw Data, Urine 10(H) <=4 /HPF [facility] Hyaline Casts, Urine 2 0 - 2 /LPF [facility] Comment: Interpret results with caution, microscopic results are from suboptimal specimen volume Clean Catch Urine 11/02/2023 11:40 AM EDT 11/02/2023 12:05 PM EDT Narrative Resulting Agency Comment Spec In Lab Elmer Tamez MD URINE ORDERABLES Performing Organization Address City/[facility] Co de Phone Number [facility] [place] [address] * (ABNORMAL) Urinalysis with reflex Culture (11/02/2023 [...] Dipstick Small(A) Negative [facility] Appearance, Urine Dipstick Cloudy(A) Clear [facility] Specific [place] Urine Automated >=1.030(A) 1.005 - 1.030 [facility] Color, Urine Dipstick Dark Yellow Yellow [facility] Reflex to Culture Yes [facility] Clean Catch Urine 11/02/2023 11:40 AM EDT 11/02/2023 12:04 PM EDT Narrative Resulting Agency Comment Spec In Lab Rosa Hugo MD URINE ORDERABLES [facility] [place] [id number] * Respiratory Panel PCR (11/02/2023 10:15 AM EDT) Respiratory Panel Source DIGITAL COMPUTER OPERATOR Swab [facility] Respiratory Panel PCR Negative Negative [facility] Comment: Respiratory Panels are performed on the [employer]Sky, using multiplexed PCR nucleic acid detection. ??Negative [...] diagnosis of COVID-19 is performed using the [employer] Respiratory Panel 2.1 ([email or web address][employer]com) as authorized by the FDA issued Emergency [...] within the [facility], each of which is certified under the [...] fact sheets at the following FDA website: https://www.fda.gov/medical-devices/sragrfyapml-yfsbfpo-5217-ksiap-28-ellpglqvn- use-a wbxcmkaxamrtb-dbuzedg-prlvjto/kksxn-fcgvrskknml-svfe Human Metapneumovirus Not Detected Not Detected ST [...] GEN ERAL ORDERABLES [facility] [place] [address] * XR Chest One View (11/02/2023 2:51 AM EDT) WORKSTATION ID [id number] RAD Anatomical Region Laterality Modality Chest N/A [...] have questions please contact the health medicare sales executive that requested your imaging first. ? Electronically signed by: Omaira Tran MD, [facility] ([phone]), at 11/02/2023 4:56 AM Narrative 11/02/2023 4:56 [...] who have questions please contactthe health medicare sales executive that requested your imaging first. Electronically signed by: Omaira Tran MD, [facility]([phone]), at 11/02/2023 4:56 AM Rosa Hugo MD IMG DX ORDERABLES * (ABNORMAL) Differential, Automated (11/02/2023 12:35 AM EDT) Neutrophil % 76.5 % [facility] Neutrophil Absolute 7.69(H) 1.70 - 6.10 x10(3)/mc L [facility] Lymph % 8.3 % [facility] Lymphocytes Abs 0.8(L) 0.9 - 3.2 x10(3)/ L [facility] Monocyte % 12.9 % [facility] Monocyte Abs 1.3(H) 0.3 - 0.9 x10(3)/mc L [facility] Eos % 1.4 % [facility] Eosinophils Abs 0.1 0.0 - 0.4 x10(3)/mc L [facility] Basophil % 0.4 % [facility] [...] HEMATOLOGY ORDERABLE S [facility] [place] [address] * (ABNORMAL) Hemogram (11/02/2023 12:35 AM EDT) [facility] NRBC% auto 0.0 % [facility] NRBC Absolute 0.000 0.000 - 0.000 x10(3)/ L [facility] Blood 11/02/2023 12:3 5 AM EDT 11/02/2023 12:43 AM EDT Narrative Resulting Agency Comment Spec In Lab Qamar Gallardo MD HEMATOLOGY ORDERABLE S [facility] [place] [address] * (ABNORMAL) Phosphorus (11/02/2023 12:35 AM EDT) [facility] Phosphorus 1.6(L) 2.5 - 4.5 mg/dL [facility] Blood 11/02/2023 12:3 5 AM EDT 11/02/2023 12:43 AM EDT Narrative Resulting Agency Comment Spec In Lab Rosa Cornejo MD CHEMISTRY ORDERABLE S Performing Organization Address City/[facility]/ZIP Co de Phone Number [facility] [place] [address] * Magnesium (11/02/2023 12:35 AM EDT) [facility] Magnesium 0.87 0.69 - 1.07 mmol/L [facility] Blood 11/02/2023 12:3 5 AM EDT 11/02/2023 12:43 AM EDT Narrative Resulting Agency Comment Spec In Lab Rosa Cornejo MD CHEMISTRY ORDERABLE S Performing Organization Address City/[facility]/ZIP Co de Phone Number [facility] [place] [address] * Basic Metabolic Panel (non-fasting) (11/02/2023 12:35 AM EDT) [facility] Glucose 125 65 - 199 mg/dL ST [...] CHEMISTRY ORDERABLE S [facility] [place] [address] * Blood culture (11/02/2023 12:35 AM EDT) Blood Culture No growth at [address] [facility] Blood 11/02/2023 12:3 5 AM EDT 11/02/2023 1:55 AM EDT Comment:#2 site ukn Narrative Resulting Agency Comment Spec In Lab Rosa Hugo MD MICROBIOLOGY - BLO OD ORDERABLES [facility] [place] [address] * Blood culture (11/02/2023 12:15 AM EDT) Blood Culture No growth at [address] [facility] Blood 11/02/2023 12:1 5 AM EDT 11/02/2023 1:54 AM EDT Comment:#1site unk Narrative Resulting Agency Comment Spec In Lab Rosa Hugo MD MICROBIOLOGY - BLO OD ORDERABLES Performing Organization Address City/[facility]/ZIP Co de Phone Number [facility] [place] [phone] * EKG 12 Lead (11/01/2023 10:10 PM EDT) Ventricular rate 139 BPM MUSE SYSTEM Atrial Rate 139 BPM MUSE SYSTEM P-R Interval 168 ms MUSE SYSTEM QRS Duration 84 ms MUSE SYSTEM Q-T Interval 286 ms MUSE SYSTEM QTC Calculated (Bezet) 435 ms MUSE SYSTEM Calculated R Bandy -59 degrees MUSE SYSTEM Calculated T Bandy -27 degrees MUSE SYSTEM INTERPRETATION Mid-RP tachycardia, [...] interpretation Confirmed by fellow MD Andrés, Enriqueta ([id number]) on 11/04/2023 7:57:50 AM Confirmed by MD Carrillo Danette ([id number]) on 11/04/2023 4:32:03 PM MUSE SYSTEM 11/01/2023 10:1 0 PM EDT 11/04/2023 4:32 PM EDT Rosa Cornejo MD ECG ORDERABLES Performing Organization Address [facility]/ZIP Co de Phone Number MUSE SYSTEM * (ABNORMAL) Hemogram (11/01/2023 10:06 PM EDT) White Blood Cell 10.4(H) 4.0 - 9.5 x10(3)/[facility] Red Blood Cell 4.11 4.00 - 5.21 x10(6)/[facility] Hemoglobin 14.0 11.7 - 15.5 g/dL [facility] Hematocrit 41.1 35.7 - 45.8 % [facility] Mean Cell Volume 100.0(H) 82.6 - 94.[address] [facility] Mean Cell Hemoglobin 34.1(H) 27.1 - 32.[address] [facility] Mean Cell Hemoglobin Concentration 34.1 31.7 - 35.0 g/dL [facility] Platelet 197 145 - 357 x10(3)/[facility] RDW Standard Deviation 54.0(H) 37.0 - 46.0 [facility] RDW coefficient of variation 14.6(H) 11.5 - 14.1 % [facility] Mean Platelet Volume 11.2 7.6 - 12.[address] [facility] NRBC% auto 0.0 % [facility] NRBC Absolute 0.000 0.000 - 0.000 x10(3)/[facility] Blood 11/01/2023 10:0 6 PM EDT 11/01/2023 10:22 PM EDT Narrative Resulting Agency Comment Spec In Lab Rosa Hugo MD HEMATOLOGY ORDERAB LES [facility] [place] [address] * POCT Glucose (11/01/2023 5:59 PM EDT) [facility] Glucose, POC 104 65 - 199 mg/dL [facility] Comment: Supplemental ranges: <140 mg/dL before meals <180 mg/dL all other times of the day Blood 11/01/2023 5:59 PM EDT 11/01/2023 5:59 PM EDT Rosa Hugo MD POINT OF CARE TEST ORDERABLES Performing Organization Address City/[facility]/ZIP Co de Phone Number [facility] [place] [address] * POCT Glucose (11/01/2023 5:35 PM EDT) Glucose, POC 85 65 - 199 mg/dL [facility] Comment: Supplemental ranges: <140 mg/dL before meals <180 mg/dL all other times of the day Blood 11/01/2023 5:35 PM EDT 11/01/2023 5:35 PM EDT Rosa Hugo MD POINT OF CARE TEST ORDERABLES Performing Organization Address [facility] Co de Phone Number [facility] [place] [address] * EKG 12 Lead (11/01/2023 3:22 PM EDT) Ventricular rate 59 BPM MUSE SYSTEM Atrial Rate 59 BPM MUSE SYSTEM P-R Interval 220 ms MUSE SYSTEM QRS Duration 94 ms MUSE SYSTEM Q-T Interval 428 ms MUSE SYSTEM QTC Calculated (Bezet) 423 ms MUSE SYSTEM Calculated P Bandy 76 degrees MUSE SYSTEM Calculated R Bandy -50 degrees MUSE SYSTEM Calculated T Bandy -59 degrees MUSE SYSTEM INTERPRETATION Sinus bradycardia with sinus arrhythmia with 1st degree A-V block Left anterior fascicular block Moderate voltage criteria for LVH, may be normal variant ( R in aVL , Volcano product ) Cannot rule out Inferior infarct [...] Modality Other Narrative 11/02/2023 4:57 PM EDT ?[facility] ? Cardiac Catheterization/Intervention Report ? Patient Name: Adin Santos Dorene. ? Procedure Date: 11/01/2023 ? A #: [id number] ? Primary Physician: Rosa Dewey I ? Case #: [id number] ? File Name: [id number] ? Catheterization Order Number: [id number] ? [facility] ? Final Report [place], [place] ? Patient Name: ? Adin Nadiya Santos ?ID#: ?[id number] ? : ?1940 ? Procedure Date: ? November 01, 2023 ? Case #: ? [id number] ? Room: ? 2 ? Case Physician: ? Rosa Dewey M.D. ? Start: ?13:53 ? Admission: ??10/30/2023 ? Referring Physician: ??Omaira H [place], M.D. ? Discharge: ??11/03/2023 ? Procedures: ?* [...] procedure was Urgent. The indication for ?the label printing machinist visit is ACS greater than 24 hrs. [...] premounted ? 3.50 x 15 mm Dayton Vermillion (RADHA) was deployed with a maximum ? [...] A premounted 3.50 x 15 mm Andrea Vermillion (RADHA) was deployed ? with a maximum [...] dose administered prior to arrival in the label printing machinist. ?Recommended anti-platelet/anti-thrombotic regimen: ?Continue aspirin 81 mg daily for indefinitely. ?Continue clopidogrel 75 mg daily for 12 months then stop. ?These recommendations are made at the time of the intervention. Patient ?and provider preferences or a changing clinical situation may require ?modification of this regimen. Consult [facility] Interventional Cardiology for ?questions. ?The 1 year [...] Procedure Note Rosa Dewey MD - 12/12/2023 [facility] Cardiac Catheterization/Intervention Report Patient Name: Adin Santos Procedure Date: 11/01/2023 A #: [id number] Primary Physician: Rosa Dewey I Case #: [id number] File Name: [id number] Catheterization Order Number: [id number] [facility] FinalReport [place], [place] Patient Name: Adin Santos ID#:[id number] :1940 Procedure Date: November 01, 2023 Case [...] diagnostic procedure was Urgent. The indicationfor the label printing machinist visit is ACS greater than 24 hrs. [...] atmospheres. Apremounted 3.50 x 15 mm Andrea Vermillion (RADHA) was deployed with amaximum inflation pressure [...] The lesion was predilated with a 3.00mm [id number] MM balloon with a maximum inflation pressure of 14atmospheres. A premounted 3.50 x 15 mm Dayton Vermillion (RADHA) wasdeployed with a maximum inflation pressure [...] dose administered prior to arrival in the label printing machinist. Recommended anti-platelet/anti-thrombotic regimen: Continue aspirin 81 mg daily for indefinitely. Continue clopidogrel 75 mg daily for 12 months then stop. These recommendations are made at the time of the intervention.Patient and provider preferences or a changing clinical situation mayrequire modification of this regimen. Consult [facility] Interventional Cardiologyfor questions. The 1 year bleeding [...] POCT Glucose (11/01/2023 7:06 AM EDT) [facility] Glucose, POC 93 65 - 199 mg/dL [facility] Comment: Supplemental ranges: <140 mg/dL before meals <180 mg/dL all other times of the day Blood 11/01/2023 7:06 AM EDT 11/01/2023 7:06 AM EDT Jean Laboy MD POINT OF CARE TEST O RDERABLES [facility] [place] [address] * (ABNORMAL) Differential, Automated (11/01/2023 3:09 AM EDT) [facility] Neutrophil % 63.9 % [facility] Neutrophil Absolute 5.54 1.70 - 6.10 x10(3)/mc L [facility] Lymph % 20.0 % [facility] Lymphocytes Abs 1.7 0.9 - 3.2 x10(3)/mc L [facility] Monocyte % 11.9 % [facility] Monocyte Abs 1.0(H) 0.3 - 0.9 x10(3)/mc L [facility] Eos % 3.2 % [facility] Eosinophils Abs 0.3 0.0 - 0.4 x10(3)/mc L [facility] Basophil % 0.5 % [facility] Co de Phone Number [facility] [place] [address] * (ABNORMAL) Hemogram (11/01/2023 3:09 AM EDT) White Blood Cell 8.7 4.0 - 9.5 x10(3)/[facility] Red Blood Cell 3.72(L) 4.00 - 5.21 x10(6)/ L [facility] Hemoglobin 12.5 [facility] NRBC% auto 0.0 % [facility] NRBC Absolute 0.000 0.000 - 0.000 x10(3)/mc L [facility] Blood 11/01/2023 3:09 AM EDT 11/01/2023 3:29 AM EDT Narrative Resulting Agency Comment Spec In Lab Qamar Gallardo MD HEMATOLOGY ORDERABLE S Performing Organization Address City/[facility]/ZIP Co de Phone Number [facility] [place] [address] * Phosphorus (11/01/2023 3:09 AM EDT) Phosphorus 2.5 2.5 - 4.5 mg/dL [facility] Blood 11/01/2023 3:09 AM EDT 11/01/2023 3:29 AM EDT Narrative Resulting Agency Comment Spec In Lab Rosa Cornejo MD CHEMISTRY ORDERABLE S Performing Organization Address City/[facility]/ZIP Co de Phone Number [facility] [place] [address] * Magnesium (11/01/2023 3:09 AM EDT) Magnesium 0.82 0.69 - 1.07 mmol/L [facility] Blood 11/01/2023 3:09 AM EDT 11/01/2023 3:29 AM EDT Narrative Resulting Agency Comment Spec In Lab Rosa Cornejo MD CHEMISTRY ORDERABLE S Performing Organization Address City/[facility]/ZIP Co de Phone Number [facility] [place] [address] * (ABNORMAL) Basic Metabolic Panel (non-fasting) (11/01/2023 [...] CHEMISTRY ORDERABLE S [facility] [place] [address] * (ABNORMAL) Troponin (10/31/2023 2:46 PM EDT) [...] value can be found in the [facility] Test Catalog Troponin - [facility] Test Catalog Reference: Fourth Creole Definition of Myocardial Infarction. Journal of the [place] [employer] 2018;72:5410-9664 Blood 10/31/2023 2:46 PM EDT 10/31/2023 2:55 PM EDT Narrative Resulting Agency Comment Spec In Lab Jean Laboy MD CHEMISTRY ORDERABLES [facility] [place] [address] * EKG 12 Lead (10/31/2023 1:07 PM EDT) Ventricular rate 54 BPM MUSE SYSTEM Atrial Rate 54 BPM MUSE SYSTEM P-R Interval 218 ms MUSE SYSTEM QRS Duration 92 ms MUSE SYSTEM Q-T Interval 540 ms MUSE SYSTEM QTC Calculated (Bezet) 512 ms MUSE SYSTEM Calculated P Bandy 85 degrees MUSE SYSTEM Calculated R Bandy -44 degrees MUSE SYSTEM Calculated T Bandy -69 degrees MUSE SYSTEM INTERPRETATION Sinus bradycardia [...] value can be found in the [facility] Test Catalog Troponin - [facility] Test Catalog Reference: Fourth Creole Definition of Myocardial Infarction. Journal of the [place] [employer] 2018;72:7043-8817 Blood 10/31/2023 11:3 7 AM EDT 10/31/2023 11:50 AM EDT Narrative Resulting Agency Comment Spec In Lab Rosa Cornejo MD CHEMISTRY ORDERABLE S [facility] [place] [address] * ECHO COMPLETE (10/31/2023 8:52 AM EDT) Anatomical Region Laterality Modality Cardiac Other 10/31/2023 7:57 AM EDT Narrative 10/31/2023 9:45 AM EDT [address] [place] [address] ? Echocardiogram Report Name: ADIN SANTOS ? Study Date: 10/31/2023 07:57 AMBP: 106/76 mmHg ? Patient Location: [place] 0481 A : 1940 ? Height: 163 cm ? Account: [id number] Age: 83 yrs ? Weight: 76 kg Gender: Female ?BSA: 1.8 m2 Ordering Physician: ROSA DEWEY Referring Physician: OMAIRA GIRON Performed By: HAFSA Carmichael Reason For Study: STEMI Interpreting Fellow: Raymond Warren. Exam Location: [facility]. Interpretation Summary -The left ventricle is [...] is no prior echocardiogram for comparison. Procedure Complete-82400. Satisfactory quality. There is sinus bradycardia. Left [...] Note Edgard Wang MD - 10/31/2023 [address] [place] [address] Echocardiogram Report Name: ADIN SANTOS Study Date: 407:57 AMBP: 106/76 mmHg Patient Location: [address] : 1940 Height: 163 cm Account: [id number] Age: 83 yrs Weight: 76 kg Gender: Female BSA: 1.8 m2 Ordering Physician: ROSA DEWEY Referring Physician: OMAIRA GIRON Performed By: HAFSA Carmichael Reason For Study: STEMI Interpreting Fellow: Raymond Warren. Exam Location: [facility]. Interpretation Summary -The left ventricle is [...] is no prior echocardiogram for comparison. Procedure Complete-83584. Satisfactory quality. There is sinus bradycardia. Left [...] * (ABNORMAL) Troponin (10/31/2023 8:51 AM EDT) [facility] Signature Troponin-T, High Sensitivity 571(H) <=14 ng/L ST [...] value can be found in the [facility] Test Catalog Troponin - [facility] Test Catalog Reference: Fourth Creole Definition of Myocardial Infarction. Journal of the [place] [employer] 2018;72:0490-5954 Blood 10/31/2023 8:51 AM EDT 10/31/2023 9:12 AM EDT Narrative Resulting Agency Comment Spec In Lab Rosa Cornejo MD CHEMISTRY ORDERABLE S Performing Organization Address City/State/[facility] Co de Phone Number [facility] [place] [address] * CARDIAC CATHETERIZATION (10/31/2023 8:10 AM EDT) Anatomical Region Laterality Modality Other Narrative 11/07/2023 9:42 AM EDT ?[facility] ? Cardiac Catheterization/Intervention Report ? Patient Name: Adin Santos Nadiya ? Procedure Date: 10/30/2023 ? A #: [id number] ? Primary Physician: Rosa Dewey I ? Case #: [id number] ? File Name: [id number] ? Catheterization Order Number: [id number] ? [facility] ? Final Report [place], [place] ? Patient Name: ? Adin M. Goguen ?ID#: ?[id number] ? : ?1940 ? Procedure Date: ? [...] procedure was Emergent. The indication for ?the label printing machinist visit is ACS less than or equal [...] A premounted 4.00 x 38 mm Dayton Vermillion (RADHA) was deployed ? with a maximum [...] dose administered prior to arrival in the label printing machinist. ?Recommended anti-platelet/anti-thrombotic regimen: ?Continue aspirin 81 mg daily for 12 months then stop. ?Continue clopidogrel 75 mg daily for indefinitely. ?These recommendations are made at the time of the intervention. Patient ?and provider preferences or a changing clinical situation may require ?modification of this regimen. Consult [facility] Interventional Cardiology for ?questions. ? Conclusions: ?* [...] Procedure Note Rosa Dewey MD - 12/05/2023 [facility] Cardiac Catheterization/Intervention Report Patient Name: Adin Santos Procedure Date: 10/30/2023 A #: [id number] Primary Physician: Rosa Dewey I Case #: [id number] File Name: [id number] Catheterization Order Number: [id number] [facility] FinalReport [place], [place] Patient Name: Adin Pardojonatanjosue ID#:[id number] :1940 Procedure Date: October 30, 2023 Case #: [id number] Room: 5 Case Physician: Rosa Dewey M.D. Start: 17:26 Fellow: aTvon Ha Jr., M.D. Admission:10/30/2023 Discharge:11/03/2023 Referring Physician: [...] III. The [facility] clinical frailtyscale is 5: Mildly Frail. Diagnostic Tests: Electrocardiography: EKG was assessed by ECG. EKG was Abnormal. EKG showed STDeviation >= 0.5 mm, other abnormality and dynamic EKG changes. Medications Prior to Procedure: Aspirin, Angiotensin II Receptor Kristy, Beta Kristy andStatin. Indications for Diagnostic Cath: The priority of the diagnostic procedure was Emergent. Theindication for the label printing machinist visit is ACS less than or equal [...] The priority for the procedure was Emergent.The [facility] indication for the procedure was STEMI-Immediate [...] A premounted 4.00 x 38 mm Andrea Vermillion (RADHA) wasdeployed with a maximum inflation pressure [...] dose administered prior to arrival in the label printing machinist. Recommended anti-platelet/anti-thrombotic regimen: Continue aspirin 81 mg daily for 12 months then stop. Continue clopidogrel 75 mg daily for indefinitely. These recommendations are made at the time of the intervention.Patient and provider preferences or a changing clinical situation mayrequire modification of this regimen. Consult [facility] Interventional Cardiologyfor questions. Conclusions: * Two vessel [...] (ABNORMAL) Troponin (10/31/2023 4:21 AM EDT) [facility] Troponin-T, High Sensitivity 457(H) <=14 ng/L [...] value can be found in the [facility] Test Catalog Troponin - [facility] Test Catalog Reference: Fourth Creole Definition of Myocardial Infarction. Journal of the [place] College [employer] 2018;72:7822-1810 Blood 10/31/2023 4:21 AM EDT 10/31/2023 4:30 AM EDT Narrative Resulting Agency Comment Spec In Lab Rosa Cornejo MD CHEMISTRY ORDERABLE S [facility] [place] [address] * (ABNORMAL) Differential, Automated (10/31/2023 3:05 AM EDT) Neutrophil % 71.7 % [facility] Neutrophil Absolute 8.21(H) 1.70 - 6.10 x10(3)/mc L [facility] Lymph % 16.9 % [facility] Lymphocytes Abs 1.9 0.9 - 3.2 x10(3)/mc L [facility] Monocyte % 9.4 % [facility] Monocyte Abs 1.1(H) 0.3 - 0.9 x10(3)/mc L [facility] Eos % 1.3 % [facility] Eosinophils Abs 0.2 0.0 - 0.4 x10(3)/mc L [facility] Basophil % 0.4 % [facility] [...] HEMATOLOGY ORDERABLE S [facility] [place] [address] * (ABNORMAL) Hemogram (10/31/2023 3:05 AM EDT) White Blood Cell 11.5(H) 4.0 - 9.5 x10(3)/ L [facility] Red Blood Cell 3.75(L) 4.00 - 5.21 x10(6)/[facility] Hemoglobin 12.6 11.7 - 15.5 g/dL [facility] NRBC% auto 0.0 % [facility] NRBC Absolute 0.000 0.000 - 0.000 x10(3)/ L [facility] Blood 10/31/2023 3:05 AM EDT 10/31/2023 3:13 AM EDT Narrative Resulting Agency Comment Spec In Lab Qamar Gallardo MD HEMATOLOGY ORDERABLE S Performing Organization Address [facility] Co de Phone Number [facility] [place] [address] * (ABNORMAL) APTT (10/31/2023 3:05 AM EDT) [...] ORDERABL ES Performing Organization Address [facility] de Phone Number [facility] [place] [address] * (ABNORMAL) Prothrombin Time (10/31/2023 3:05 AM [...] ORDERABL ES Performing Organization Address [facility] Co de Phone Number [facility] [place] [address] * (ABNORMAL) Differential, Automated (10/31/2023 1:37 AM EDT) Pathologist [facility] Neutrophil % 71.1 % [facility] Neutrophil Absolute 7.53(H) 1.70 - 6.10 x10(3)/mc L [facility] Lymph % 18.0 % [facility] Lymphocytes Abs 1.9 0.9 - 3.2 x10(3)/ L [facility] Monocyte % 8.7 % [facility] Monocyte Abs 0.9 0.3 - 0.9 x10(3)/ L [facility] Eos % 1.6 % [facility] Eosinophils Abs 0.2 0.0 - 0.4 x10(3)/ L [facility] Basophil % 0.4 % [facility] [...] HEMATOLOGY ORDERABLE S [facility] [place] [address] * (ABNORMAL) Hemogram (10/31/2023 1:37 AM EDT) [facility] NRBC% auto 0.0 % [facility] NRBC Absolute 0.000 0.000 - 0.000 x10(3)/mc L [facility] Blood 10/31/2023 1:37 AM EDT 10/31/2023 1:46 AM EDT Narrative Resulting Agency Comment Spec In Lab Qamar Gallardo MD HEMATOLOGY ORDERABLE S [facility] [place] [address] * Phosphorus (10/31/2023 1:37 AM EDT) Phosphorus 3.2 2.5 - 4.5 mg/dL [facility] Blood 10/31/2023 1:37 AM EDT 10/31/2023 1:46 AM EDT Narrative Resulting Agency Comment Spec In Lab Rosa Cornejo MD CHEMISTRY ORDERABLE S Performing Organization Address City/[facility]/ZIP Co de Phone Number [facility] [place] [address] * Magnesium (10/31/2023 1:37 AM EDT) Pathologist [facility] Magnesium 0.83 0.69 - 1.07 mmol/L [facility] Blood 10/31/2023 1:37 AM EDT 10/31/2023 1:46 AM EDT Narrative Resulting Agency Comment Spec In Lab Rosa Cornejo MD CHEMISTRY ORDERABLE S Performing Organization Address [facility] Co de Phone Number [facility] [place] [address] * Basic Metabolic Panel (non-fasting) (10/31/2023 1:37 [...] CHEMISTRY ORDERABLE S [facility] [place] [address] * (ABNORMAL) Troponin (10/31/2023 1:37 AM EDT) Pathologist [facility] Troponin-T, High Sensitivity 329(H) <=14 ng/L ST [...] value can be found in the [facility] Test Catalog Troponin - [facility] Test Catalog Reference: Fourth Creole Definition of Myocardial Infarction. Journal of the [place] [employer] 2018;72:7567-4485 Blood 10/31/2023 1:37 AM EDT 10/31/2023 1:46 AM EDT Narrative Resulting Agency Comment Spec In Lab Rosa Cornejo MD CHEMISTRY ORDERABLE S Performing Organization Address [facility]/ZIP Co de Phone Number [facility] [place] [address] * EKG 12 Lead (10/31/2023 1:20 AM EDT) Ventricular rate 52 BPM MUSE SYSTEM Atrial Rate 52 BPM MUSE SYSTEM P-R Interval 224 ms MUSE SYSTEM QRS Duration 108 ms MUSE SYSTEM Q-T Interval 544 ms MUSE SYSTEM QTC Calculated (Bezet) 505 ms MUSE SYSTEM Calculated P Bandy 90 degrees MUSE SYSTEM Calculated R Bandy -57 degrees MUSE SYSTEM Calculated T Bandy -63 degrees MUSE SYSTEM INTERPRETATION Sinus bradycardia with 1st degree A-V block Pulmonary disease pattern Left anterior fascicular block Moderate voltage criteria for LVH, may be normal variant ( R in aVL , Volcano product ) T wave abnormality, consider inferior ischemia T wave abnormality, consider anterolateral ischemia Prolonged QT Abnormal ECG When compared with ECG of 30-OCT-2023 22:40, No significant change was found Confirmed by Charles COFFMAN, Butch ([id number]) on 11/01/2023 8:58:03 PM MUSE SYSTEM 10/31/2023 1:20 AM EDT 11/01/2023 8:58 PM EDT Rosa Cornejo MD ECG ORDERABLES Performing Organization Address City/[facility]/ZIP Co de Phone Number MUSE SYSTEM * EKG 12 Lead (10/30/2023 10:40 PM EDT) Ventricular rate 55 BPM MUSE SYSTEM Atrial Rate 55 BPM MUSE SYSTEM P-R Interval 232 ms MUSE SYSTEM QRS Duration 102 ms MUSE SYSTEM Q-T Interval 520 ms MUSE SYSTEM QTC Calculated (Bezet) 497 ms MUSE SYSTEM Calculated P Bandy 75 degrees MUSE SYSTEM Calculated R Bandy -53 degrees MUSE SYSTEM Calculated T Bandy -57 degrees MUSE SYSTEM INTERPRETATION Sinus bradycardia [...] Chest One View (10/30/2023 10:10 PM EDT) Setred WORKSTATION ID [id number] DH RAD Anatomical Region Laterality Modality Chest [...] and low lung volumes. Findings similar to excel expert radiograph from CT 10/30/2023. Thank you for letting us participate in the care of this patient. ??If you are a health care provider and have any questions regarding this report, please contact the number below. ??For patients who have questions please contact the health medicare sales executive that requested your imaging first. ? Electronically signed by: Wilson Mccartney MD, [facility] ([phone]), at 10/30/2023 10:32 PM Narrative 10/30/2023 10:32 [...] and low lung volumes. Findings similar to excel expert radiograph from CT 10/30/2023. Thank you for letting us participate in the care of this patient. If youare a health care provider and have any questions regarding this report,please contact the number below. For patients who have questions please contactthe health medicare sales executive that requested your imaging first. Rosa Cornejo MD IMG DX ORDERABLES * Green Tube HOLD (10/30/2023 10:05 PM EDT) [facility] Green Hold Sample in lab. [facility] Blood Venous Draw / Unknown 10/30/2023 10:05 PM EDT 10/30/2023 10:13 PM EDT Qamar Gallardo MD CHEMISTRY ORDERABLES [facility] [place] [address] * (ABNORMAL) Differential, Automated (10/30/2023 10:05 PM EDT) [facility] Neutrophil % 76.6 % [facility] Neutrophil Absolute 6.94(H) 1.70 - 6.10 x10(3)/mc L [facility] Lymph % 15.4 % [facility] Lymphocytes Abs 1.4 0.9 - 3.2 x10(3)/mc L [facility] Monocyte % 6.1 % [facility] Monocyte Abs 0.6 0.3 - 0.9 x10(3)/mc L [facility] Eos % 1.1 % [facility] Eosinophils Abs 0.1 0.0 - 0.4 x10(3)/mc L [facility] Basophil % 0.6 % [facility] [...] HEMATOLOGY ORDERABLE S [facility] [place] [address] * (ABNORMAL) Hemogram (10/30/2023 10:05 PM EDT) [facility] NRBC% auto 0.0 % [facility] NRBC Absolute 0.000 0.000 - 0.000 x10(3)/mc L [facility] Blood 10/30/2023 10:0 5 PM EDT 10/30/2023 10:12 PM EDT Narrative Resulting Agency Comment Spec In Lab Qamar Gallardo MD HEMATOLOGY ORDERABLE S Performing Organization Address [facility] Co de Phone Number [facility] [place] [address] * Hemoglobin A1c (10/30/2023 10:05 PM EDT) [...] Mellitus, Diabetes Care 2013; 36: Suppl. 1, S67-19 Estimated Average Glucose See note mg/dL [facility] Comment: Estimated Average Glucose not appropriate for patients over 70 years of age. Blood 10/30/2023 10:0 5 PM EDT 10/30/2023 10:12 PM EDT Narrative Resulting Agency Comment Spec In Lab Rosa Cornejo MD CHEMISTRY ORDERABLE S Performing Organization Address [facility] Co de Phone Number [facility] [place] [address] * Lipid Panel (Reflex Direct LDL) (10/30/2023 10:05 PM EDT) Cholesterol, Total 218 mg/dL [facility] Comment: Desirable: ? <200 mg/dL Borderline High: 200-239 mg/dL Higher: ?>vo=288 mg/dL Triglyceride 46 mg/dL [facility] Comment: Normal: ?<150 mg/dL Borderline High: 150-199 mg/dL High: ?200-499 mg/dL Very High: ? >oe=658 mg/dL HDL Cholesterol 64 mg/dL [facility] Comment: Females: High Risk: <50 mg/dL Males: High Risk: <40 mg/dL LDL Cholesterol 145 mg/dL [facility] Comment: Desirable: ? <100 mg/dL Above Desirable: 100-129 mg/dL Borderline High: 130-159 mg/dL High: ?160-189 mg/dL Very High: ? >hq=256 mg/dL Lipid Interpretation See Note [facility] [...] ACC/AHA Guidelines (most recently Feliciano et al. [facility] 03/23/22): For individuals with atherosclerotic cardiovascular disease (ASCVD)or LDL >ic=220 mg/dL, use a high-intensity statin (40-80 mg [...] ORDERABLE S Performing Organization Address [facility] Co de Phone Number [facility] [place] [address] * TSH Stevens (10/30/2023 10:05 PM EDT) Thyroid Stimulating Hormone 3.35 0.27 - 4.20 mcIU/mL [facility] Comment: Reference Interval (mcIU/mL): Females: ??First Trimester: 0.23-3.88 ??Second Trimester: 0.22-3.90 ??Third Trimester: 0.44-4.66 Blood 10/30/2023 10:0 5 PM EDT 10/30/2023 10:12 PM EDT Narrative Resulting Agency Comment Spec In Lab Rosa Cornejo MD CHEMISTRY ORDERABLE S Performing Organization Address [facility]/ZIP Co de Phone Number [facility] [place] [address] * pro-Brain Natriuretic Peptide (10/30/2023 10:05 PM EDT) NT-proBNP 375 <=449 pg/mL [facility] Blood 10/30/2023 10:0 5 PM EDT 10/30/2023 10:12 PM EDT Narrative Resulting Agency Comment Spec In Lab Rosa Cornejo MD CHEMISTRY ORDERABLE S [facility] [place] [address] * (ABNORMAL) Comprehensive metabolic panel (non-fasting) (10/30/2023 [...] ORDERABLE S Performing Organization Address [facility]/ZIP Co de Phone Number [facility] [place] [address] * Phosphorus (10/30/2023 10:05 PM EDT) Phosphorus 3.3 2.5 - 4.5 mg/dL [facility] Blood 10/30/2023 10:0 5 PM EDT 10/30/2023 10:12 PM EDT Narrative Resulting Agency Comment Spec In Lab Rosa Cornejo MD CHEMISTRY ORDERABLE S Performing Organization Address [facility]/ZIP Co de Phone Number [facility] [place] [address] * Magnesium (10/30/2023 10:05 PM EDT) Magnesium 0.86 0.69 - 1.07 mmol/L [facility] Blood 10/30/2023 10:0 5 PM EDT 10/30/2023 10:12 PM EDT Narrative Resulting Agency Comment Spec In Lab Rosa Cornejo MD CHEMISTRY ORDERABLE S Performing Organization Address City/[facility]/ZIP Co de Phone Number [facility] [place] [address] * (ABNORMAL) Troponin (10/30/2023 10:05 PM EDT) [facility] Troponin-T, High Sensitivity 214(H) <=14 ng/L ST [...] value can be found in the [facility] Test Catalog Troponin - [facility] Test Catalog Reference: Fourth Creole Definition of Myocardial Infarction. Journal of the [place] College [employer] 2018;72:0576-1652 Blood 10/30/2023 10:0 5 PM EDT 10/30/2023 10:12 PM EDT Narrative Resulting Agency Comment Spec In Lab Rosa Cornejo MD CHEMISTRY ORDERABLE S [facility] [place] [address] * EKG 12 Lead (10/30/2023 8:21 PM EDT) [facility] Ventricular rate 49 BPM MUSE SYSTEM Atrial Rate 49 BPM MUSE SYSTEM P-R Interval 230 ms MUSE SYSTEM QRS Duration 96 ms MUSE SYSTEM Q-T Interval 526 ms MUSE SYSTEM QTC Calculated (Bezet) 475 ms MUSE SYSTEM Calculated P Bandy 98 degrees MUSE SYSTEM Calculated R Bandy -48 degrees MUSE SYSTEM Calculated T Bandy -51 degrees MUSE SYSTEM INTERPRETATION Sinus bradycardia [...] Admin Adt)1848 (Given - Provider: Mary Sweeney, TANEHSA)2019 (Given - Provider: Danica Shipley RN) 1730 [...] 0939 (Given - Provider: Mary Sweeney RN)1333 (AUG [...] RN) 0245 (Patch Removed - Provider: Danica Shipley, [...] Mary Sweeney RN)1259 (Stopped - Provider: Lolly Leblanc RN)1350 (New Bag - Provider: Lolly Leblanc, TANESHA)1659 [...] 1107 (Given - Provider: Mary Sweeney RN)1333 (AUG [...] Parisa Kowalski RN)1439 (Given - Provider: Jean Oliveira, TANESHA) hydrALAZINE (Apresoline) (20 mg/mL) injection 10 mg [...] area)1548 (MAR Unhold - Provider: Admin Adt) midazolam (pf) [...] 24 to 72 hours., Routine 1333 ([facility] Hold - Provider: Admin Adt - Reason: Transfer to a Procedural area)1548 ([facility] Unhold - Provider: Admin Adt) sodium chloride 0.9 % (flush) (BD PosiFlush Normal Saline 0.9) flush 5-20 mL 5-20 mL, Intravenous, EVERY 1 MIN PRN, Starting on 10/30/23 at 2208, Until Amna 11/03/23 at 1913, flush, Flush pertains to all indwelling lines. Flush per protocol found in the job aid using the link provided on this medication record., Routine 1333 ([facility] Hold - Provider: Admin Adt - Reason: Transfer to a Procedural area)1548 ([facility] Unhold - Provider: Admin Adt) documented in this encounter Additional Health Concerns Infection Onset Date Last Indicated Resolved Time Rule Out Respiratory 11/02/2023 11/02/2023 024 12:22 PM EDT Rule Out COVID-19 11/02/2023 11/02/2023 11/02/2023 12:22 PM EDT documented as of this encounter Care Teams Chute Loader Relationship Specialty Start Date End Date Rosie Mathews MD [address] [place] [address] PCP - General Family Medicine 11/25/17 11/23/23 documented as of this encounter
--- OUTSIDE RECORDS SUMMARY | 2024-04-18 13:54 | XMS_ITS | Encounter Summary ---
Author Organization [facility] Address [facility] [place] [address] Care Team Providers Care Air Quality Chemist Name Role Phone Rosie Mathews MD Primary Care Provider [phone] Encounter Details Date Type Department Care Team (Late st Contact Info) Description 11/18/2023 External Results Administration [facility] [place] [address] Social History Tobacco Use Types Packs/Day Years Used Date Smoking Tobacco: Former Smokeless Tobacco: Never Alcohol Use Standard Drinks/Week Comments Not Currently 0 (1 standard drink = 0.6 oz pur e alcohol) [facility] Utilities Answer Date Recorded In the past 12 months has e [employer], gas, oil, or water company threatened to [...] 11:00 AM EDT Office Visit Cardiology at [address] [phone] Izaiah Meyer MD [facility] [place] [address] documented as of this encounter Procedures Procedure Name Priority Date/Time Associated Diagnosis Comments ECG SCAN Routine 11/18/2023 4:50 PM EDT documented in this encounter Results * Scan Doc: ECG (11/18/2023 4:50 PM EDT) Historical Provider MEDIA MGR SCAN EX T ORDR/RSLT documented in this encounter Visit Diagnoses Not on filedocumented in this encounter Care Teams Air Quality Chemist Relationship Specialty Start Date End Date Rosie Mathews MD [address] [place] [address] PCP - General Family Medicine 11/25/17 11/23/23 documented as of this encounter
--- OUTSIDE RECORDS SUMMARY | 2024-04-18 13:54 | XMS_ITS | Encounter Summary ---
Author Organization [facility] Address [facility] [place] [address] Care Team Providers Care Package Line Relief Operator Name Role Phone Masood Pierson MD Primary Care Provider [phone] Encounter Details Date Type Department Care Team (Late st Contact Info) Description 12/16/2023 Telephone Cardiology at [address] [place] [address] Izaiah Meyer MD [facility] [place] [address] Social History Tobacco Use Types Packs/Day Years Used Date Smoking Tobacco: Former Smokeless Tobacco: Never Alcohol Use Standard Drinks/Week Comments Not Currently 0 (1 standard drink = 0.6 oz pur e alcohol) [facility] Utilities Answer Date Recorded In the past 12 months has [employer], gas, oil, or water [email or web address] threatened to shut off services in your [...] RN - 12/16/2023 11:25 AM EDT Denise, [facility] Cardiac truck service technician, called to report that at today's [...] 11:00 AM EDT Office Visit Cardiology at [address] [place] [address] Izaiah Meyer MD [facility] [place] [address] documented as of this encounter Visit Diagnoses Not on filedocumented in this encounter Care Teams Package Line Relief Operator Relationship Specialty Start Date End Date Masood Pierson MD [address] [place] [address] PCP - General Family Medicine 11/24/23 documented as of this encounter
--- OUTSIDE RECORDS SUMMARY | 2024-04-18 13:54 | XMS_ITS | Encounter Summary ---
Author Organization [facility] Address [facility] [place] [address] Care Team Providers Care Data Network Architect Name Role Phone Rosie Mathews MD Primary Care Provider [phone] Reason for Visit * Reason Onset Date Comments Referral 11/03/2023 Coronary Artery Disease 11/03/2023 Encounter Details Date Type Department Care Team (Late st Contact Info) Description 11/03/2023 Telephone Cardiology at [address] [address] Andressa Machado, whip sawyer; Coronary Artery Disease Social History Tobacco Use Types Packs/Day Years Used Date Smoking Tobacco: Former Smokeless Tobacco: Never Alcohol Use Standard Drinks/Week Comments Not Currently 0 (1 standard drink = 0.6 oz pur e alcohol) [facility] Utilities Answer Date Recorded In the past 12 months has e [employer], gas, oil, or water [employer] threatened to shut off services in your [...] were not included. Heart and Vascular Clinics [facility] Cardiology Clinic [address] [place] [id number] Lyla was referred to this Cardiology clinic in [place] for post cardiac cath 10/31 for STEMI follow up as part of her discharge plan from [facility] documented in this encounter Plan of Treatment Upcoming Encounters Date Type Department Care Team (Late st Contact Info) Description 10/24/2024 11:00 AM EDT Office Visit Cardiology at [address] [place] [address] Izaiah Meyer MD [facility] [place] [address] documented as of this encounter Visit Diagnoses Not on filedocumented in this encounter Care Teams Data Network Architect Relationship Specialty Start Date End Date Rosie Mathews MD [address] [place] [address] PCP - General Family Medicine 11/25/17 11/23/23 documented as of this encounter
--- OUTSIDE RECORDS SUMMARY | 2024-04-18 13:54 | XMS_ITS | Encounter Summary ---
Author Organization [facility] Address [facility] [place] [address] Care Team Providers Care Bilingual Trainer Name Role Phone Masood Pierson MD Primary Care Provider [phone] Encounter Details Date Type Department Care Team (Late st Contact Info) Description 02/24/2024 11:10 PM EDT Ancillary Procedure Radiology Library at [facility] [place] [phone] Masood Pierson MD [address] [place], [place] [id number] Social History Tobacco Use Types Packs/Day Years [...] 11:00 AM EDT Office Visit Cardiology at [address] [place] [address] Izaiah Meyer MD [facility] [place] [address] documented as of this encounter Procedures Procedure [...] IMG FILM LIBRARY ORD ERABLES [facility] [place], [place] documented in this encounter Visit Diagnoses Not on filedocumented in this encounter Care Teams Bilingual Trainer Relationship Specialty Start Date End Date Masood Pierson MD [address] [place] [address] PCP - General Family Medicine 11/24/23 documented as of this encounter
--- OUTSIDE RECORDS SUMMARY | 2024-04-18 13:54 | XMS_ITS | Encounter Summary ---
Author Organization [facility] Address [facility] [place] [address] Care Team Providers Care Spiritual Minister Name Role Phone Rosie Mathews MD Primary Care Provider [phone] Encounter Details Date Type Department Care Team (Late st Contact Info) Description 11/18/2023 Telephone Cardiology at [address] [address] Cheryl Guzman MD [facility] [address] Social History Tobacco Use Types Packs/Day Years Used Date Smoking Tobacco: Former Smokeless Tobacco: Never Alcohol Use Standard Drinks/Week Comments Not Currently 0 (1 standard drink = 0.6 oz pur e alcohol) [facility] Utilities Answer Date Recorded In the past 12 months has e electric, gas, oil, or water [employer] threatened to shut off services in your [...] Provider: Radu Giron MD Patient Location: ED, [facility] Past Medical History: HTN HLD [place]STEM[place] [place] status-post revasc[place] Presenting Symptoms per OSH: Lyla Goodrich is a 83 y.o. woman who presents to [facility] with an episode of chest pain. Recent admission [place] [facility] with NSTEMI status-post PCI [...] today's values. RCA was described as a VASCULAR PHYSICIAN. Recommend admission for observation to assess for [...] 11:00 AM EDT Office Visit Cardiology at [address] [phone] Izaiah Meyer MD [facility] [place] [address] documented as of this encounter Visit Diagnoses Not on filedocumented in this encounter Care Teams Spiritual Minister Relationship Specialty Start Date End Date Rosie Mathews MD [address] [place] [address] PCP - General Family Medicine 11/25/17 11/23/23 documented as of this encounter
--- OUTSIDE RECORDS SUMMARY | 2024-04-18 13:54 | XMS_ITS | Encounter Summary ---
Author Organization [facility] Address [facility] [place] [address] Care Team Providers Care Ict Trainer Name Role Phone Masood Pierson MD Primary Care Provider [phone] Reason for Visit * Reason Comments Establish Care Coronary Artery Disease Encounter Details Date Type Department Care Team (Latest Contact Info) Description 11/24/2023 10:40 AM EDT Office Visit Cardiology at [address] [place] [address] Izaiah Meyer MD [facility] [place] [address] ASCVD (arteriosclerotic cardiovascular disease); Cardiomyopathy, ischemic; Ascending aorta dilatation; Hyperpiesia Social History Tobacco Use Types Packs/Day Years Used Date Smoking Tobacco: Former Smokeless Tobacco: Never Alcohol Use Standard Drinks/Week Comments Not Currently 0 (1 standard drink = 0.6 oz pur e alcohol) [facility] Utilities Answer Date Recorded In the past [...] Prox 60 Mid 80 3.5 x 15 Richey 3.5 x 15 Andrea RCA Mid AoCTO. Collats from Cx 4.0 x 38 Richey NB: RCA initially intervened; Cx 2 days [...] y.o. female. HPI: 83 f [facility] cardiovascular [facility]. She has [...] [facility] 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
--- OUTSIDE RECORDS SUMMARY | 2024-04-18 13:55 | XMS_ITS | Encounter Summary ---
Author Organization [facility] Address [facility] [place] [address] Care Team Providers Care Race Engine Builder Name Role Phone Rosie Mathews MD Primary Care Provider [phone] Encounter Details Date Type Department Care Team (Late st Contact Info) Description 10/30/2023 5:00 PM EDT Ancillary Procedure Radiology Library at [facility] [place] [phone] Izaiah Meyer MD [facility] [place] [address] Social History Tobacco Use Types Packs/Day Years Used Date Smoking Tobacco: Former Smokeless Tobacco: Never Alcohol Use Standard Drinks/Week Comments Not Currently 0 (1 standard drink = 0.6 oz pur e alcohol) [facility] Inpatient Questions Answer Date Recorded Does [...] 11:00 AM EDT Office Visit Cardiology at [address] [place] [phone] Izaiah Meyer MD [facility] [place] [place] [address] documented as of this encounter Procedures Procedure Name Priority Date/Time Associated Diagnosis Comments FILM LIBRARY STORAGE ONLY CT CHEST Routine 10/30/2023 4:59 PM EDT documented in this encounter Results * Film Library- Storage Only CT Chest (10/30/2023 4:59 PM EDT) Narrative [facility] - 10/30/2023 4:59 PM EDT This exam is auto-finalizing. It's purpose is for storage only. Izaiah Meyer MD IMG FILM LIBRARY ORD ERABLES Performing Organization Address City/State/[facility] Co de Phone Number [place], [place] documented in this encounter Visit Diagnoses Not on filedocumented in this encounter Care Teams Race Engine Builder Relationship Specialty Start Date End Date Rosie Mathews MD [address] [place] [address] PCP - General Family Medicine 11/25/17 11/23/23 documented as of this encounter
--- OUTSIDE RECORDS SUMMARY | 2024-04-18 13:55 | XMS_ITS | Encounter Summary ---
Author Organization [facility] Address [facility] [place] [address] Care Team Providers Care Staff Cytotechnologist Name Role Phone Rosie Mathews MD Primary Care Provider [phone] Reason for Visit * Reason Comments Skin Lesion * Consultation (Routine) - Closed Specialty Diagnoses / Procedures Referred By John hunt Referred To Contact Dermatology Diagnoses facial skin lesion Procedures pt would like to be seen PRADEEP Rosie Mathews MD [address] [place] [address] [facility] Dermatology [address] [place] [address] Referral ID Status Reason Start Date Expiration Date V isits Requested Visits Authorized [id number] Closed Consult, Test & Treat Connection Center 10/25/2017 10/25/2018 1 1 Encounter Details Date Type Department Care Team (Late st Contact Info) Description 11/25/2017 4:30 PM EDT Office Visit Dermatology at [facility] [address] [place] [address] Call, Radu Go MD [facility] [address] SHERLYN [place] [address] Seborrheic keratosis; Fibrous papule of [...] by Radu Tom MD Resident in Dermatology [facility] Patient seen in conjunction with staff insurance case manager: Terri Hale MD Section of Dermatology [facility] * Terri Hale MD - 11/25/2017 [...] 11:00 AM EDT Office Visit Cardiology at [address] [address] Izaiah Meyer MD [facility] [place] [address] documented as of this encounter Visit Diagnoses Diagnosis Seborrheic keratosis Other seborrheic keratosis Fibrous papule of nose Benign neoplasm of skin of other and unspecified parts of face Skin tags, multiple acquired documented in this encounter Care Teams Staff Cytotechnologist Relationship Specialty Start Date End Date Rosie Mathews MD [address] [place] [address] PCP - General Family Medicine 11/25/17 11/23/23 documented as of this encounter
--- OUTSIDE RECORDS SUMMARY | 2024-04-18 13:55 | XMS_ITS | Encounter Summary ---
Author Organization [facility] Address [facility] [place] [address] Care Team Providers Care Stem Threshing Machine Operator Name Role Phone Rosie Mathews MD Primary Care Provider [phone] Reason for Visit * Consultation (Routine) - Closed Specialty Diagnoses / Procedures Referred By John hunt Referred To Contact Audiology Diagnoses Hearing assessment and treatment options Karson John MD [address] [place] [address] [facility] Audiology [address] [place] [phone] Referral ID Status Reason Start Date Expiration Date V isits Requested Visits Authorized [id number] Closed Consult, Test & Treat Connection Center 11/22/2017 11/22/2018 1 1 Encounter Details Date Type Department Care Team (Latest Contact Info) Description 11/30/2017 3:15 PM EDT Office Visit Audiology at [address] [address] Georgette Onofre AUD [facility] [place] [address] Sensorineural hearing loss, bilateral; Bilateral [...] [facility] years ago in [place], [place]. She stated she continues to experience [...] tone audiogram. SNR loss is the increased crucby-qm-[id number] ratio required by an individual to understand [...] not hesitate to contact this Section at [phone] if there are questions regarding this report or its recommendations. Romeo Becker [place] [id number] Attachment: audiogram CC: MD Karson Loo MD Laurmarco a Catherine [address] [place] [id number] documented in this encounter Plan of Treatment Upcoming Encounters Date Type Department Care Team (Late st Contact Info) Description 10/24/2024 11:00 AM EDT Office Visit Cardiology at [address] [place] [address] Izaiah Meyer MD [facility] [place] [address] documented as of this encounter Procedures Procedure [...] tinnitus documented in this encounter Care Teams Stem Threshing Machine Operator Relationship Specialty Start Date End Date Rosie Mathews MD [address] [place] [address] PCP - General Family Medicine 11/25/17 11/23/23 documented as of this encounter
--- OUTSIDE RECORDS SUMMARY | 2024-04-18 13:55 | XMS_ITS | Encounter Summary ---
Author Organization [facility] [place] [address] Care Team Providers Care Decorating Machine Tender Name Role Phone Rosie Mathews MD Primary Care Provider [phone] Reason for Visit * Auth/Cert (Routine) Specialty Diagnoses / Procedures Referred By Contac t Referred To Contact Diagnoses Unstable angina Chest pain NSTEMI Procedures CARDIAC CATHETERIZATION Rosa Dewey MD [facility] [address] [facility] Referral ID Status Reason Start Date Expiration Date Visits Re quested Visits Authorized [id number] 1 1 Encounter Details Date Type Department Care Team (Late st Contact Info) Description 10/30/2023 4:25 PM EDT - 10/30/2023 5:27 PM EDT [place] [address] Rosa Dewey MD [facility] [address] [place], [place] [id number] CARDIAC CATHETERIZATION Social History Tobacco Use Types Packs/Day Years Used Date Smoking Tobacco: Former Smokeless Tobacco: Never Alcohol Use Standard Drinks/Week Comments Not Currently 0 (1 standard drink = 0.6 oz pur e alcohol) [facility] Inpatient Questions Answer Date Recorded Does Anyone [...] for hypertension and hyperlipidemia who presented to [facility] as a transfer from [facility] as a possible STEMI alert with [...] or PND. The patient subsequently presented to [facility] as a walk-in for further evaluation. [...] on repeat, her JAMIE resolved. Cardiology at [facility] was consulted for transfer; the patient was loaded with aspirin 324 mg and ticagrelor 180 mg, started on a heparin drip, and given nitroglycerin with improvement in chest pain. Upon arrival to [facility], the patient was taken directly to the [facility]. Two lesions were discovered: one in the prox RCA (felt to almost be a [employer]STR[employer] RULES FOOTBALLER but they were able to wire, balloon, [...] dose administered prior to arrival in the oil laboratory analyst. Recommended anti-platelet/anti-thrombotic regimen: Continue aspirin 81 [...] and low lung volumes. Findings similar to bonding supervisor radiograph from CT 10/30/2023. Pending Studies [...] 10:40 AM Izaiah Meyer MD Cardiology at [place] Arrive at: [facility] [address] [phone] Future Orders Complete By Expires Referral to Cardiac Rehab [[id number] Custom] As directed Process Instructions: If no progress note charted, please enter Clinical details in comments. Scheduling Instructions: Questions: My question or request is: STEMI. Cardiac rehab at [facility]. Referral to Home Health [[id number] Custom] As directed Process Instructions: If no progress note charted, please enter Clinical details in comments. Scheduling Instructions: Comments: Please evaluate Adin Santos for admission to Home Health. [address] [place] [address] [place] [phone] (home) Date of : 1940 Inpatient DOCUMENTATION FOR VNA SERVICES (INCLUDING THOSE PATIENTS WITH MEDICARE COVERAGE REQUIRING HOME VNA SERVICES AND/OR HOSPICE SERVICES) PATIENT'S LOCATION: Adin Santos [address] [facility] [phone] (home) Cell: Telephone Information: Octave Board Racker's Name: self In discussion with the attending physician, it is certified that this patient is under their care and that they, or a Nurse Practitioner, Clinical Nurse specialist or Physician Front Desk Attendant who is working directly with them, had [...] regarding health issues HOME HEALTH CARE AGENCY: [facility] [address] [place] [address] START OF CARE: within 24-48 hours of [...] [address] / [facility] [address] . All A agencies which cover the [...] / Dr. Masood Pierson [address] [place] [address] 11/09/23 1:55 PM arrival for 2:10 PM appointment Clinical Research Director: Izaiah Meyer MD [address] [place] [address] , 11/24/2023 10:40 AM Your Inpatient Medical Team at [facility] Name(s) of your inpatient provider(s): Attending physician: Rosa Hugo MD Resident physicians: Emile Robles MD; Elmer Tamez MD If you have non-emergent questions, prior to your follow-up visit call: Tuesday-Tuesday between the hours of 8AM-5PM please call the Cardiology Clinic [phone] to speak with a nurse. All other hours please call the Hospital Department Specialist [phone] and ask to speak to the registered nurse bone marrow transplant on-call. Your Primary Care Provider Rosie Mathews MD [phone] For questions regarding this document or issues relating to this hospitalization on the Medical Service, please contact your inpatient physician through the [facility] Department Specialist . Issues afterhours and on weekends will be handled by the Clinical Research Director staff on-call. Associated attestation - Rosa Hugo [...] / Dr. Masood Pierson [address] [place] [address] 11/09/23 1:55 PM arrival for 2:10 PM appointment Clinical Research Director: Izaiah Meyer MD [address] [place] [address] , 11/24/2023 10:40 AM Your Inpatient Medical Team at [facility] Name(s) of your inpatient provider(s): Attending physician: Rosa Hugo MD Resident physicians: Emile Robles MD; Elmer Tamez MD If you have non-emergent questions, prior to your follow-up visit call: Tuesday-Tuesday between the hours of 8AM-5PM please call the Cardiology Clinic [phone] to speak with a nurse. All other hours please call the Hospital Department Specialist [phone] and ask to speak to the registered nurse bone marrow transplant on-call. Your Primary Care Provider Rosie Mathews MD [phone] documented in this encounter Medications at Time [...] for hypertension and hyperlipidemia who presented to [facility] as a transfer from [facility] as a possible STEMI alert with [...] for hypertension and hyperlipidemia who presented to [facility] as a transfer from [facility] as a possible STEMI alert with [...] Resident on Cardiology Service Cardiology S1 (Pager [phone]) Note written in conjunction with Claudio Perla [facility] Medical Student, MS3 Associated attestation - [...] Nirmala Webb - 11/01/2023 11:25 AM EDT Fitness Technician Encounter Note Patient Name: Adin Santos : [id number] MR#: [id number] Admit Date: 10/30/2023 5:11 PM Hospital Day 2 days Narrative: Self initiated visit to patient for Spiritual support in a regular unit rounds. Assessment: Patient is in the bathroom at the time of this visit. Not a good time for Pork Cutlet Maker visit. Intervention and Outcome: An attempted visit [...] for hypertension and hyperlipidemia who presented to [facility] as a transfer from [facility] as a possible STEMI alert with [...] and low lung volumes. Findings similar to bonding supervisor radiograph from CT 10/30/2023. Scheduled Medications: [MAR [...] for hypertension and hyperlipidemia who presented to [facility] as a transfer from [facility] as a possible STEMI alert with [...] Resident on Cardiology Service Cardiology S1 (Pager [phone]) Note written in conjunction with Claudio Perla [facility] Medical Student, MS3 Associated attestation - [...] for hypertension and hyperlipidemia who presented to [facility] as a transfer from [facility] as a possible STEMI alert with acute onset chest pain. Active Problems: Active Hospital Problems Diagnosis Unstable angina Resolved Hospital Problems No resolved problems to display. 24 hr events: - Cath'd yesterday with lesion in the proximal RCA (initially thought it was [employer] RULES FOOTBALLER but they were ableto wire, balloon and [...] and low lung volumes. Findings similar to bonding supervisor radiograph from CT 10/30/2023. TTE (10/30): Interpretation [...] for hypertension and hyperlipidemia who presented to [facility] as a transfer from [facility] as a possible STEMI alert with [...] Resident on Cardiology Service Cardiology S1 (Pager [phone]) Note written in conjunction with Claudio Perla [facility] Medical Student, MS3 Associated attestation - [...] PCP: Rosie Mathews MD PCP phone number: [phone] Date of Admission: 10/30/2023 ( Hospital Day 0 days ) Attending:Rosa Cornejo MD ID: Adin Santos is a 83 y.o. female PMH significant for hypertension and hyperlipidemia who presented to [facility] as a transfer from [facility] as a possible STEMI alert with [...] or PND. The patient subsequently presented to [facility] as a walk-in for further evaluation. [...] on repeat, her JAMIE resolved. Cardiology at [facility] was consulted for transfer; the patient was loaded with aspirin 324 mg and ticagrelor 180 mg, started on a heparin drip, and given nitroglycerin with improvement in chest pain. Upon arrival to [facility], the patient was taken directly to the Varnish Thinner. 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 Findings similar to bonding supervisor radiograph from CT 10/30/2023. Assessment & Plan: Adin Santos is a 83 y.o. female PMH significant for hypertension and hyperlipidemia who presented to [facility] as a transfer from [facility] as a possible STEMI alert with [...] 80 mg daily Plan to start beta rodirck tomorrow first dost given post cath Formal [...] with HTN HLD transferred with chest from [facility]. BP 217/68, HR 71 [...] information for follow-up Home Health & H[facility]ice, [place] [address] TANESHA BOYCE confirmed with Brittany CARVAJAL that [...] in the room. Electrolytes replaced, see MAR. irrigation laborer sites remained C/D/I with baseline ecchymosis unchanged. Pt complained of back pain, lidocaine patch given. Right IV infiltrated during infusion, patient is marked with sharpie, IV removed. See flowsheet for I+O's and safety rounding. Patient is able to make needs known and call capps within reach. PLAN MOVING FORWARD: Monitor Tele, control BP, monitor oil laboratory analyst sites, D/C Planning INDIVIDUALIZED FALL PREVENTION [...] in an outpatient cardiac rehabilitation program at [facility] was discussed. Patient agrees [...] and above on RA. PT went to oil laboratory analyst today. Left fem site oozed throughout [...] MOVING FORWARD: Monitor Tele, control BP, monitor oil laboratory analyst sites, D/C Planning INDIVIDUALIZED FALL PREVENTION [...] Admitted From: Transfer from another hospital Location: [facility] Reason for Hospitalization: chest pain Covid Vaccination Status: 1st, 2nd & booster Past medical History: No past medical history on file. Hospitalizations Within the Past 30 Days: no previous admission in last 30 days Current Decision-Making Capacity: Self If AD's have not been completed the following surrogate would be surrogate decision maker per [place] surrogate decision making law. (Only good for 180 days) Any patient receiving care in [place] must abide by [place] law. The hierarchy for surrogate decision making [...] (i) The agent with financial power of trademark attorney or a conservator appointed in accordance [...] has the electric, gas, oil, or water [employer] threatened to shut off services in your [...] toilet seat Home Address confirmed as: [address] [facility] [address] Social & Family Supports: All names listed below confirmed with patient as current and correct Extended Emergency Contact Information Primary Emergency Contact: Iris Downing Address: [address] [place], [place] [address] [place] [address] Mobile Relation: Child Secondary Emergency Contact: Karen More Address: [address] Mobile Relation: Child Current Care Provided by: self Provides Primary Care For: no one Caregiver if needed: child(emmanuel), adult Quality of Family relationships: involved, supportive Community Resources being provided currently: other (see comments) (receives [facility] services at home [...] Insurance: N/A Prescription Coverage: Yes Preferred Pharmacy: [facility] [place], [place] - [address] [place] [address] [place] [id number] [place] Status: Patient is a : No Primary Care Provider listed: Masood Pierson MD [phone] Patient/Caregiver Goals of Treatment: home when MR Potential Needs for Transition of Care: home health care Agency Referrals: Not Applicable I have met with the patient to: discuss discharge planning needs. provide the [facility], Office of Care Management letter from the Lighting Equipment Operator pertaining to rehab referrals. provide a letter describing our affiliations within the [facility] and educate about their right to choose where referrals are sent. provide a list of Home Health Agencies / Durable Medical Equipment vendors which serve their preferred geographic area. provided patient with CMS Star Quality Rating handout. They have requested referrals to: [facility] [address] [place] [address] Note routed to a Spinning Frame Fixer who will communicate referrals to facilities and [...] results. PO hydralazine added for BP control. irrigation laborer sites remain C/D/I, ecchymosis unchanged th roughout shift. See flowsheet for I+O's and safety rounding. Patient is able to make needs known and call capps within reach. PLAN MOVING FORWARD: Monitor Tele, control CP and BP, NPO at MD for cath, monitor oil laboratory analyst sites, D/C Planning INDIVIDUALIZED FALL PREVENTION [...] 11:00 AM EDT Office Visit Cardiology at [address] [address] Izaiah Meyer MD [facility] [place] [address] Scheduled Referrals Name Type Priority Associated Diagnoses [...] HEMATOLOGY ORDERABLE S [facility] [place] [address] * (ABNORMAL) Hemogram (11/03/2023 3:46 AM EDT) White Blood Cell 8.3 4.0 - 9.5 x10(3)/ L [facility] Red Blood Cell 3.77(L) 4.00 - 5.21 x10(6)/ L [facility] Hemoglobin 13.1 [...] MD HEMATOLOGY ORDERABLE S Performing Organization Address City/[facility]/ZIP Co de Phone Number [facility] [place] [address] * Phosphorus (11/03/2023 3:46 AM EDT) Phosphorus 3.2 2.5 - 4.5 mg/dL [facility] Comment:result rechecked-KS Blood 11/03/2023 3:46 AM EDT 11/03/2023 4:11 AM EDT Narrative Resulting Agency Comment Spec In Lab Rosa Cornejo MD CHEMISTRY ORDERABLE S Performing Organization Address [facility]/ZIP Co de Phone Number [facility] [place] [address] * Magnesium (11/03/2023 3:46 AM EDT) Magnesium 0.90 0.69 - 1.07 mmol/L [facility] Blood 11/03/2023 3:46 AM EDT 11/03/2023 4:11 AM EDT Narrative Resulting Agency Comment Spec In Lab Rosa Cornejo MD CHEMISTRY ORDERABLE S Performing Organization Address City/[facility]/ZIP Co de Phone Number [facility] [place] [address] * (ABNORMAL) Basic Metabolic Panel (non-fasting) (11/03/2023 [...] CHEMISTRY ORDERABLE S [facility] [place] [address] * EKG 12 Lead (11/02/2023 12:44 PM EDT) Ventricular rate 83 BPM MUSE SYSTEM Atrial Rate 83 BPM MUSE SYSTEM P-R Interval 216 ms MUSE SYSTEM QRS Duration 90 ms MUSE SYSTEM Q-T Interval 384 ms MUSE SYSTEM QTC Calculated (Bezet) 451 ms MUSE SYSTEM Calculated P [place] 92 degrees MUSE SYSTEM Calculated R [place] -51 degrees MUSE SYSTEM Calculated T [place] -33 degrees MUSE SYSTEM INTERPRETATION Sinus rhythm with 1st degree A-V block with Premature atrial complexes Left axis deviation Moderate voltage criteria for LVH, may be normal variant ( R in aVL , [place] product ) Anterolatera l infarct (cited on or before 01-NOV-2023) Abnormal ECG When compared with ECG of 01-NOV-2023 22:10, Premature atrial complexes are now Present [place] interval has increased Vent. rate has decreased BY ??56 BPM Confirmed by MD Kevin, Esteban ([id number]) on 11/02/2023 1:32:10 PM MUSE SYSTEM 11/02/2023 12:4 4 PM EDT 11/02/2023 1:32 PM EDT Rosa Hugo MD ECG ORDERABLES Performing Organization Address City/[facility]/ZIP Co de Phone Number MUSE SYSTEM * (ABNORMAL) Urinalysis Microscopic Exam [...] MD URINE ORDERABLES [facility] [place] [address] * (ABNORMAL) Urinalysis with reflex Culture (11/02/2023 [...] CENTER LABORATORY Leukocytes, Urine Dipstick Small(A) Negative [facility] Appearance, Urine Dipstick Cloudy(A) Clear [facility] Specific Lambert Urine Automated >=1.030(A) 1.005 - 1.030 [facility] Color, Urine Dipstick Dark Yellow Yellow [facility] Reflex to Culture Yes [facility] Clean Catch Urine 11/02/2023 11:40 AM EDT 11/02/2023 12:04 PM EDT Narrative Resulting Agency Comment Spec In Lab Rosa Hugo MD URINE ORDERABLES [facility] [place] [address] * Respiratory Panel PCR (11/02/2023 10:15 AM EDT) Respiratory Panel Source RELIEF SALESPERSON Swab [facility] Respiratory Panel PCR Negative Negative [facility] Comment: Respiratory Panels are performed on the [employer], using multiplexed PCR nucleic acid detection. ??Negative [...] performed using the BioFire Respiratory Panel 2.1 (Cazoodle) as authorized by the FDA issued Emergency Use Authorization (EUA). This panel also tests for multiple other viral and bacterial pathogens. This assay is intended for In-vitro Diagnostic (IVD) use with nasopharyngeal swabs in viral transport media. The assay is performed based on the instructions for use and additional guidance provided by the FDA. Testing is performed in laboratories within the [facility], each of which is certified under the [...] fact sheets at the following FDA website: https://www.fda.gov/medical-devices/ijyhqgrropr-qntntav-3699-cqywf-17-hftlctvzm- use-a wmpxqgmzurfxl-czsbapv-hbueihj/ioinr-nmcucodjfnw-xbhn Human Metapneumovirus Not Detected Not Detected [facility] [...] GEN ERAL ORDERABLES [facility] [place] [address] * XR Chest One View (11/02/2023 2:51 AM EDT) WORKSTATION ID [id number] DH RAD Anatomical Region Laterality Modality Chest [...] have questions please contact the health medicare specialist that requested your imaging first. ? Electronically signed by: Omaira Tran MD, [facility] ([phone]), at 11/02/2023 4:56 AM Narrative 11/02/2023 4:56 [...] who have questions please contactthe health medicare specialist that requested your imaging first. Rosa Hugo [...] HEMATOLOGY ORDERABLE S [facility] [place] [address] * (ABNORMAL) Hemogram (11/02/2023 12:35 AM EDT) [...] HEMATOLOGY ORDERABLE S [facility] [place] [address] * (ABNORMAL) Phosphorus (11/02/2023 12:35 AM EDT) Phosphorus 1.6(L) 2.5 - 4.5 mg/dL [facility] Blood 11/02/2023 12:3 5 AM EDT 11/02/2023 12:43 AM EDT Narrative Resulting Agency Comment Spec In Lab Rosa Cornejo MD CHEMISTRY ORDERABLE S Performing Organization Address City/[facility]/ZIP Co de Phone Number [facility] [place] [address] * Magnesium (11/02/2023 12:35 AM EDT) Magnesium 0.87 0.69 - 1.07 mmol/L [facility] Blood 11/02/2023 12:3 5 AM EDT 11/02/2023 12:43 AM EDT Narrative Resulting Agency Comment Spec In Lab Rosa Cornejo MD CHEMISTRY ORDERABLE S Performing Organization Address City/[facility]/ZIP Co de Phone Number [facility] [place] [address] * Basic Metabolic Panel (non-fasting) (11/02/2023 12:35 [...] CHEMISTRY ORDERABLE S [facility] [place] [address] * Blood culture (11/02/2023 12:35 AM EDT) Blood Culture No growth at 5 days. [facility] Blood 11/02/2023 12:3 5 AM EDT 11/02/2023 1:55 AM EDT Comment:#2 site ukn Narrative Resulting Agency Comment Spec In Lab Rosa Hugo MD MICROBIOLOGY - BLO OD ORDERABLES Performing Organization Address [facility] Co de Phone Number [facility] [place] [address] * Blood culture (11/02/2023 12:15 AM EDT) Blood Culture No growth at 5 days. [facility] Blood 11/02/2023 12:1 5 AM EDT 11/02/2023 1:54 AM EDT Comment:#1site unk Narrative Resulting Agency Comment Spec In Lab Rosa Hugo MD MICROBIOLOGY - BLO OD ORDERABLES Performing Organization Address [facility] Co de Phone Number [facility] [place] [address] * EKG 12 Lead (11/01/2023 10:10 PM EDT) Ventricular rate 139 BPM MUSE SYSTEM Atrial Rate 139 BPM MUSE SYSTEM P-R Interval 168 ms MUSE SYSTEM QRS Duration 84 ms MUSE SYSTEM Q-T Interval 286 ms MUSE SYSTEM QTC Calculated (Bezet) 435 ms MUSE SYSTEM Calculated R [place] -59 degrees MUSE SYSTEM Calculated T [place] -27 degrees MUSE SYSTEM INTERPRETATION Mid-RP tachycardia, consider sinus tachycardia or SVT Left axis deviation Moderate voltage criteria for LVH, may be normal variant ( R in aVL , [place]ila product ) Inferior infarct (cited on or before 01-NOV-2023) Anterolateral infarct (cited on or before 01-NOV-2023) Abnormal ECG When compared with ECG of 01-NOV-2023 15:22, Vent. rate Although rate has increased Serial changes of Anterior infarct Present I personally reviewed the tracing and edited the fellows interpretation Confirmed by fellow MD Bowen Ashley ([id number]) on 11/04/2023 7:57:50 AM Confirmed by MD Carrillo Danette ([id number]) on 11/04/2023 4:32:03 PM MUSE SYSTEM 11/01/2023 10:1 0 PM EDT 11/04/2023 4:32 PM EDT Rosa Cornejo MD ECG ORDERABLES MUSE SYSTEM * (ABNORMAL) Hemogram (11/01/2023 10:06 PM EDT) White Blood Cell 10.4(H) 4.0 - 9.5 x10(3)/[facility] Red Blood Cell 4.11 4.00 - 5.21 x10(6)/[facility] Hemoglobin 14.0 11.7 - 15.5 g/dL [facility] Hematocrit 41.1 35.7 - 45.8 % [facility] Mean Cell Volume 100.0(H) 82.6 - 94.4 fL [facility] Mean Cell Hemoglobin 34.1(H) 27.1 - 32.0 pg [facility] Mean Cell Hemoglobin Concentration 34.1 31.7 - 35.0 g/dL [facility] Platelet 197 145 - 357 x10(3)/[facility] RDW Standard Deviation 54.0(H) 37.0 - 46.0 fL [facility] RDW coefficient of variation 14.6(H) 11.5 - 14.1 % [facility] Mean Platelet Volume 11.2 7.6 - 12.9 fL [facility] NRBC% auto 0.0 % [facility] NRBC Absolute 0.000 0.000 - 0.000 x10(3)/[facility] Blood 11/01/2023 10:0 6 PM EDT 11/01/2023 10:22 PM EDT Narrative Resulting Agency Comment Spec In Lab Rosa Hugo MD HEMATOLOGY ORDERAB LES Performing Organization Address City/[facility]/ZIP Co de Phone Number [facility] [place] [address] * POCT Glucose (11/01/2023 5:59 PM EDT) Glucose, POC 104 65 - 199 mg/dL [facility] Comment: Supplemental ranges: <140 mg/dL before meals <180 mg/dL all other times of the day Blood 11/01/2023 5:59 PM EDT 11/01/2023 5:59 PM EDT Rosa Hugo MD POINT OF CARE TEST ORDERABLES Performing Organization Address [facility] Co de Phone Number [facility] [place] [address] * POCT Glucose (11/01/2023 5:35 PM EDT) [facility] Signature Glucose, POC 85 65 - 199 mg/dL [facility] Comment: Supplemental ranges: <140 mg/dL before meals <180 mg/dL all other times of the day Blood 11/01/2023 5:35 PM EDT 11/01/2023 5:35 PM EDT Rosa Hugo MD POINT OF CARE TEST ORDERABLES Performing Organization Address City/[facility] Co de Phone Number [facility] [place] [address] * EKG 12 Lead (11/01/2023 3:22 PM EDT) Ventricular rate 59 BPM MUSE SYSTEM Atrial Rate 59 BPM MUSE SYSTEM P-R Interval 220 ms MUSE SYSTEM QRS Duration 94 ms MUSE SYSTEM Q-T Interval 428 ms MUSE SYSTEM QTC Calculated (Bezet) 423 ms MUSE SYSTEM Calculated P [place] 76 degrees MUSE SYSTEM Calculated R [place] -50 degrees MUSE SYSTEM Calculated T [place] -59 degrees MUSE SYSTEM INTERPRETATION Sinus bradycardia [...] 3:22 PM EDT 11/02/2023 1:32 PM EDT Rsoa Hugo MD ECG ORDERABLES MUSE SYSTEM * CARDIAC CATHETERIZATION (11/01/2023 3:10 PM EDT) Anatomical Region Laterality Modality Other Narrative 11/02/2023 4:57 PM EDT ?[facility] ? Cardiac Catheterization/Intervention Report ? Patient Name: Adin Santos ? Procedure Date: 11/01/2023 ? A #: [id number] ? Primary Physician: Roas Dewey I ? Case #: [id number] ? File Name: [id number] ? Catheterization Order Number: [id number] ? [facility] ? Final Report [place], [place] ? Patient Name: ? Adin M. Goguen ?ID#: ?[id number] ? : ?1940 ? Procedure Date: ? [...] procedure was Urgent. The indication for ?the oil laboratory analyst visit is ACS greater than 24 [...] premounted ? 3.50 x 15 mm Andrea Stephens (RADHA) was deployed with a maximum ? [...] A premounted 3.50 x 15 mm Andrea Stephens (RADHA) was deployed ? with a maximum [...] dose administered prior to arrival in the oil laboratory analyst. ?Recommended anti-platelet/anti-thrombotic regimen: ?Continue aspirin 81 mg daily for indefinitely. ?Continue clopidogrel 75 mg daily for 12 months then stop. ?These recommendations are made at the time of the intervention. Patient ?and provider preferences or a changing clinical situation may require ?modification of this regimen. Consult [facility] Interventional Cardiology for ?questions. ?The 1 year [...] Procedure Note Rosa Dewey MD - 12/12/2023 [facility] Cardiac Catheterization/Intervention Report Patient Name: Adin Santos Procedure Date: 11/01/2023 A #: [id number] Primary Physician: Rosa Dewey I Case #: [id number] File Name: [id number] Catheterization Order Number: [id number] [facility] FinalReport [place], [place] Patient Name: Adin Santos ID#:[id number] :1940 Procedure Date: November 01, 2023 Case [...] was designated as ASA Class III. [facility]: Vulnerable. Diagnostic Tests: Prior Coronary Angiography: LV ejection fraction within 6 months is 65%. Electrocardiography: EKG was assessed by ECG. EKG was Abnormal. EKG showed other abnormality. Medications Prior to Procedure: Aspirin, Angiotensin II Receptor Rodrick and Statin. Indications for Diagnostic Cath: The priority of the diagnostic procedure was Urgent. The indicationfor the oil laboratory analyst visit is ACS greater than 24 [...] 14 atmospheres. Apremounted 3.50 x 15 mm Wilson Stephens (RADHA) was deployed with amaximum inflation pressure [...] The lesion was predilated with a 3.00mm [id number] MM balloon with a maximum inflation pressure of 14atmospheres. A premounted 3.50 x 15 mm Wilson Stephens (RADHA) wasdeployed with a maximum inflation pressure [...] dose administered prior to arrival in the oil laboratory analyst. Recommended anti-platelet/anti-thrombotic regimen: Continue aspirin 81 mg daily for indefinitely. Continue clopidogrel 75 mg daily for 12 months then stop. These recommendations are made at the time of the intervention.Patient and provider preferences or a changing clinical situation mayrequire modification of this regimen. Consult [facility] Interventional Cardiologyfor questions. The 1 year bleeding [...] TEST O RDERABLES [facility] [place] [address] * (ABNORMAL) Differential, Automated (11/01/2023 3:09 AM EDT) Pathologist [facility] Neutrophil % 63.9 % [facility] [...] Baso Absolute 0.0 0.0 - 0.1 x10(3)/[facility] Immature Gran % 0.50 % [facility] [...] de Phone Number [facility] [place] [address] * (ABNORMAL) Hemogram (11/01/2023 3:09 AM EDT) [...] MD HEMATOLOGY ORDERABLE S Performing Organization Address City/[facility]/ZIP Co de Phone Number [facility] [place] [address] * Phosphorus (11/01/2023 3:09 AM EDT) Phosphorus 2.5 2.5 - 4.5 mg/dL [facility] Blood 11/01/2023 3:09 AM EDT 11/01/2023 3:29 AM EDT Narrative Resulting Agency Comment Spec In Lab Rosa Cornejo MD CHEMISTRY ORDERABLE S Performing Organization Address City/[facility]/ZIP Co de Phone Number [facility] [place] [address] * Magnesium (11/01/2023 3:09 AM EDT) Magnesium 0.82 0.69 - 1.07 mmol/L [facility] Blood 11/01/2023 3:09 AM EDT 11/01/2023 3:29 AM EDT Narrative Resulting Agency Comment Spec In Lab Rosa Cornejo MD CHEMISTRY ORDERABLE S [facility] [place] [address] * (ABNORMAL) Basic Metabolic Panel (non-fasting) (11/01/2023 [...] CHEMISTRY ORDERABLE S [facility] [place] [address] * (ABNORMAL) Troponin (10/31/2023 2:46 PM EDT) [...] [facility] Hospital Laboratory Test Catalog Reference: Fourth [place] Definition of Myocardial Infarction. Journal of the [place] [employer] 2018;72:2787-7337 Blood 10/31/2023 2:46 PM EDT 10/31/2023 2:55 PM EDT Narrative Resulting Agency Comment Spec In Lab Jean Laboy MD CHEMISTRY ORDERABLES Performing Organization Address City/[facility] Co de Phone Number [facility] [place] [address] * EKG 12 Lead (10/31/2023 1:07 PM EDT) Ventricular rate 54 BPM MUSE SYSTEM Atrial Rate 54 BPM MUSE SYSTEM P-R Interval 218 ms MUSE SYSTEM QRS Duration 92 ms MUSE SYSTEM Q-T Interval 540 ms MUSE SYSTEM QTC Calculated (Bezet) 512 ms MUSE SYSTEM Calculated P [place] 85 degrees MUSE SYSTEM Calculated R [place] -44 degrees MUSE SYSTEM Calculated T [place] -69 degrees MUSE SYSTEM INTERPRETATION Sinus bradycardia [...] ORDERABLES Performing Organization Address [facility] Co de Phone [...] General Hospital Laboratory Test Catalog Reference: Fourth [place] Definition of Myocardial Infarction. Journal of the [place] [employer] 2018;72:0148-5552 Blood 10/31/2023 11:3 7 AM EDT 10/31/2023 11:50 AM EDT Narrative Resulting Agency Comment Spec In Lab Rosa Cornejo MD CHEMISTRY ORDERABLE S [facility] [place] [address] * ECHO COMPLETE (10/31/2023 8:52 AM EDT) Anatomical Region Laterality Modality Cardiac Other 10/31/2023 7:57 AM EDT Narrative 10/31/2023 9:45 AM EDT [address] [place] [address] ? Echocardiogram Report Name: DAIN SANTOS ? Study Date: 10/31/2023 07:57 AMBP: 106/76 mmHg ? Patient Location: [facility] 0481 A : 1940 ? Height: 163 cm ? Account: [id number] Age: 83 yrs ? Weight: 76 kg Gender: Female ?BSA: 1.8 m2 Ordering Physician: ROSA DEWEY Referring Physician: OMAIRA GIRON Performed By: HAFSA Carmichael Reason For Study: STEMI Interpreting Fellow: Raymond Warren. Exam Location: [facility]. Interpretation Summary -The left ventricle is [...] is no prior echocardiogram for comparison. Procedure Complete-75257. Satisfactory quality. There is sinus bradycardia. Left [...] Note Edgard Wang MD - 10/31/2023 [address] [place] [address] Echocardiogram Report Name: ADIN SANTOS Study Date: 407:57 AMBP: 106/76 mmHg Patient Location: [address] : 1940 Height: 163 cm Account: [id number] Age: 83 yrs Weight: 76 kg Gender: Female BSA: 1.8 m2 Ordering Physician: ROSA DEWEY Referring Physician: OMAIRA GIRON Performed By: HAFSA Carmichael Reason For Study: STEMI Interpreting Fellow: Raymond Warren. Exam Location: [facility]. Interpretation Summary -The left ventricle is [...] is no prior echocardiogram for comparison. Procedure Complete-17760. Satisfactory quality. There is sinus bradycardia. Left [...] troponin T concentration was determined using the Sluly 5th Generation troponin T assay. The 99th [...] [facility] Hospital Laboratory Test Catalog Reference: Fourth [place] Definition of Myocardial Infarction. Journal of the [place] College [employer]iology 2018;72:0993-1826 Blood 10/31/2023 8:51 AM EDT 10/31/2023 9:12 AM EDT Narrative Resulting Agency Comment Spec In Lab Rosa Cornejo MD CHEMISTRY ORDERABLE S Performing Organization Address City/State/[facility] Co de Phone Number [facility] [place] [address] * CARDIAC CATHETERIZATION (10/31/2023 8:10 AM EDT) Anatomical Region Laterality Modality Other Narrative 11/07/2023 9:42 AM EDT ?[facility] ? Cardiac Catheterization/Intervention Report ? Patient Name: Adin Santos M. ? Procedure Date: 10/30/2023 ? A #: [id number] ? Primary Physician: Rosa Dewey I ? Case #: [id number] ? File Name: [id number] ? Catheterization Order Number: [id number] ? [facility] ? Final Report [place], [place] ? Patient Name: ? Adin M. Goguen ?ID#: ?[id number] ? : ?1940 ? Procedure Date: ? October 30, 2023 ? Case #: ? [id number] ? Room: ? 5 ? Case Physician: [...] was designated as ASA Class III. The [facility] clinical frailty scale ?is 5: Mildly Frail. [...] procedure was Emergent. The indication for ?the oil laboratory analyst visit is ACS less than or [...] ? A premounted 4.00 x 38 mm Wilson Stephens (RADHA) was deployed ? with a maximum [...] dose administered prior to arrival in the oil laboratory analyst. ?Recommended anti-platelet/anti-thrombotic regimen: ?Continue aspirin 81 mg daily for 12 months then stop. ?Continue clopidogrel 75 mg daily for indefinitely. ?These recommendations are made at the time of the intervention. Patient ?and provider preferences or a changing clinical situation may require ?modification of this regimen. Consult [facility] Interventional Cardiology for ?questions. ? Conclusions: ?* [...] Procedure Note Rosa Dewey MD - 12/05/2023 [facility] Cardiac Catheterization/Intervention Report Patient Name: Adin Santos Procedure Date: 10/30/2023 A #: [id number] Primary Physician: Rosa Dewey I Case #: [id number] File Name: [id number] Catheterization Order Number: [id number] [facility] FinalReport [place], [place] Patient Name: Adin Santos ID#:[id number] :1940 Procedure Date: October 30, 2023 Case [...] was designated as ASA Class III. The [facility] clinical frailtyscale is 5: Mildly Frail. Diagnostic Tests: Electrocardiography: EKG was assessed by ECG. EKG was Abnormal. EKG showed STDeviation >= 0.5 mm, other abnormality and dynamic EKG changes. Medications Prior to Procedure: Aspirin, Angiotensin II Receptor Rodrick, Beta Rodrick andStatin. Indications for Diagnostic Cath: The priority of the diagnostic procedure was Emergent. Theindication for the oil laboratory analyst visit is ACS less than or [...] 16atmospheres. A premounted 4.00 x 38 mm Wilson Stephens (RADHA) wasdeployed with a maximum inflation pressure [...] dose administered prior to arrival in the oil laboratory analyst. Recommended anti-platelet/anti-thrombotic regimen: Continue aspirin 81 mg daily for 12 months then stop. Continue clopidogrel 75 mg daily for indefinitely. These recommendations are made at the time of the intervention.Patient and provider preferences or a changing clinical situation mayrequire modification of this regimen. Consult [facility] Interventional Cardiologyfor questions. Conclusions: * Two vessel [...] * (ABNORMAL) Troponin (10/31/2023 4:21 AM EDT) [facility] Troponin-T, High Sensitivity 457(H) <=14 ng/L [...] General Hospital Laboratory Test Catalog Reference: Fourth [place] Definition of Myocardial Infarction. Journal of the [place] [employer]iology 2018;72:5545-9904 Blood 10/31/2023 4:21 AM EDT 10/31/2023 4:30 AM EDT Narrative Resulting Agency Comment Spec In Lab Rosa Cornejo MD CHEMISTRY ORDERABLE S Performing Organization Address City/State/[facility] Co de Phone Number [facility] [place] [address] * (ABNORMAL) Differential, Automated (10/31/2023 3:05 AM [...] de Phone Number [facility] [place] [address] * (ABNORMAL) Hemogram (10/31/2023 3:05 AM EDT) [...] S Performing Organization Address [facility] de Phone Number [facility] [place] [address] * (ABNORMAL) APTT (10/31/2023 3:05 AM EDT) [...] ES Performing Organization Address [facility] Co de Phone Number [facility] [place] [address] * (ABNORMAL) Prothrombin Time (10/31/2023 3:05 AM [...] HEMATOLOGY ORDERABL ES [facility] [place] [address] * (ABNORMAL) Differential, Automated (10/31/2023 1:37 AM [...] HEMATOLOGY ORDERABLE S [facility] [place] [address] * (ABNORMAL) Hemogram (10/31/2023 1:37 AM EDT) [...] HEMATOLOGY ORDERABLE S [facility] [place] [address] * Phosphorus (10/31/2023 1:37 AM EDT) [facility] Phosphorus 3.2 2.5 - 4.5 mg/dL [facility] Blood 10/31/2023 1:37 AM EDT 10/31/2023 1:46 AM EDT Narrative Resulting Agency Comment Spec In Lab Rosa Cornejo MD CHEMISTRY ORDERABLE S Performing Organization Address City/[facility]/ZIP Co de Phone Number [facility] [place] [address] * Magnesium (10/31/2023 1:37 AM EDT) [facility] Magnesium 0.83 0.69 - 1.07 mmol/L [facility] Blood 10/31/2023 1:37 AM EDT 10/31/2023 1:46 AM EDT Narrative Resulting Agency Comment Spec In Lab Rosa Cornejo MD CHEMISTRY ORDERABLE S Performing Organization Address City/[facility]/ZIP Co de Phone Number [facility] [place] [address] * Basic Metabolic Panel (non-fasting) (10/31/2023 1:37 AM EDT) [facility] Glucose 114 65 - 199 mg/dL [...] Lab Roas Cornejo MD CHEMISTRY ORDERABLE S [facility] [place] [address] * (ABNORMAL) Troponin (10/31/2023 1:37 AM EDT) [...] [facility] Hospital Laboratory Test Catalog Reference: Fourth [place] Definition of Myocardial Infarction. Journal of the [place] [employer]iology 2018;72:5543-3862 Blood 10/31/2023 1:37 AM EDT 10/31/2023 1:46 AM EDT Narrative Resulting Agency Comment Spec In Lab Rosa Cornejo MD CHEMISTRY ORDERABLE S Performing Organization Address City/State/[facility] [place] [address] * EKG 12 Lead (10/31/2023 1:20 AM EDT) Ventricular rate 52 BPM MUSE SYSTEM Atrial Rate 52 BPM MUSE SYSTEM P-R Interval 224 ms MUSE SYSTEM QRS Duration 108 ms MUSE SYSTEM Q-T Interval 544 ms MUSE SYSTEM QTC Calculated (Bezet) 505 ms MUSE SYSTEM Calculated P [place] 90 degrees MUSE SYSTEM Calculated R [place] -57 degrees MUSE SYSTEM Calculated T [place] -63 degrees MUSE SYSTEM INTERPRETATION Sinus bradycardia [...] was found Confirmed by Butch Soto MD (Tashi) on 11/01/2023 8:58:03 PM MUSE SYSTEM 10/31/2023 1:20 AM EDT 11/01/2023 8:58 PM EDT Rosa Cornejo MD ECG ORDERABLES Performing Organization Address [facility] Co de Phone Number MUSE SYSTEM * EKG 12 Lead (10/30/2023 10:40 PM EDT) Ventricular rate 55 BPM MUSE SYSTEM Atrial Rate 55 BPM MUSE SYSTEM P-R Interval 232 ms MUSE SYSTEM QRS Duration 102 ms MUSE SYSTEM Q-T Interval 520 ms MUSE SYSTEM QTC Calculated (Bezet) 497 ms MUSE SYSTEM Calculated P [place] 75 degrees MUSE SYSTEM Calculated R [place] -53 degrees MUSE SYSTEM Calculated T [place] -57 degrees MUSE SYSTEM INTERPRETATION Sinus bradycardia with 1st degree A-V block Left anterior fascicular block Moderate voltage criteria for LVH, may be normal variant ( R in aVL , [place] product ) T wave abnormality, consider inferior [...] ORDERABLES Performing Organization Address [facility] Phone Number MUSE SYSTEM * XR Chest One View (10/30/2023 10:10 PM EDT) WORKSTATION ID [id number] RAD Anatomical Region Laterality Modality Chest N/A Digital Radiogra phy Impressions 10/30/2023 10:32 PM EDT 1. ??Examination limited by low lung volumes. 2. ??Findings suggesting pulmonary vascular congestion with possible mild interstitial edema. 3. ??Known ascending aortic aneurysm, as seen on recent CT. 4. ??Nonspecific widening mediastinum. This can be secondary to magnification from portable technique and low lung volumes. Findings similar to bonding supervisor radiograph from CT 10/30/2023. Thank you for letting us participate in the care of this patient. ??If you are a health care provider and have any questions regarding this report, please contact the number below. ??For patients who have questions please contact the health medicare specialist that requested your imaging first. ? Electronically signed by: Wilson Mccartney MD, [facility] ([phone]), at 10/30/2023 10:32 PM Narrative 10/30/2023 10:32 [...] and low lung volumes. Findings similar to bonding supervisor radiograph from CT 10/30/2023. Thank you for letting us participate in the care of this patient. If youare a health care provider and have any questions regarding this report,please contact the number below. For patients who have questions please contactthe health medicare specialist that requested your imaging first. Rosa Cornejo MD IMG DX ORDERABLES * Green Tube HOLD (10/30/2023 10:05 PM EDT) [facility] Green Hold Sample in lab. [facility] Blood Venous Draw / Unknown 10/30/2023 10:05 PM EDT 10/30/2023 10:13 PM EDT Qamar Gallardo MD CHEMISTRY ORDERABLES [facility] [place] [address] * (ABNORMAL) Differential, Automated (10/30/2023 10:05 PM EDT) [facility] Neutrophil % 76.6 % [facility] [...] Immature Gran Absolute 0.02 0.00 - 0.04 x10(3)/[facility] Blood 10/30/2023 10:0 5 PM EDT 10/30/2023 10:12 PM EDT Narrative Resulting Agency Comment Spec In Lab Qamar Gallardo MD HEMATOLOGY ORDERABLE S [facility] [place] [address] * (ABNORMAL) Hemogram (10/30/2023 10:05 PM EDT) [...] S Performing Organization Address [facility] Co de Phone Number [facility] [place] [address] * Hemoglobin A1c (10/30/2023 10:05 PM EDT) [...] Mellitus, Diabetes Care 2013; 36: Suppl. 1, S61- Estimated Average Glucose See note mg/dL [facility] Comment: Estimated Average Glucose not appropriate for patients over 70 years of age. Blood 10/30/2023 10:0 5 PM EDT 10/30/2023 10:12 PM EDT Narrative Resulting Agency Comment Spec In Lab Rosa Cornejo MD CHEMISTRY ORDERABLE S Performing Organization Address City/[facility]/ZIP Co de Phone Number [facility] [place] [address] * Lipid Panel (Reflex Direct LDL) (10/30/2023 10:05 PM EDT) Cholesterol, Total 218 mg/dL Dorene [facility] Comment: Desirable: ? <200 mg/dL Borderline High: 200-239 mg/dL Higher: ?>qh=278 mg/dL Triglyceride 46 mg/dL [facility] Comment: Normal: ?<150 mg/dL Borderline High: 150-199 mg/dL High: ?200-499 mg/dL Very High: ? >xm=483 mg/dL HDL Cholesterol 64 mg/dL [facility] Comment: Females: High Risk: <50 mg/dL Males: High Risk: <40 mg/dL LDL Cholesterol 145 mg/dL [facility] Comment: Desirable: ? <100 mg/dL Above Desirable: 100-129 mg/dL Borderline High: 130-159 mg/dL High: ?160-189 mg/dL Very High: ? >hu=528 mg/dL Lipid Interpretation See Note [facility] [...] individuals with atherosclerotic cardiovascular disease (ASCVD)or LDL >gf=314 mg/dL, use a high-intensity statin (40-80 mg [...] CHEMISTRY ORDERABLE S [facility] [place] [address] * TSH Antlers (10/30/2023 10:05 PM EDT) Thyroid Stimulating Hormone 3.35 0.27 - 4.20 mcIU/mL [facility] Comment: Reference Interval (mcIU/mL): Females: ??First Trimester: 0.23-3.88 ??Second Trimester: 0.22-3.90 ??Third Trimester: 0.44-4.66 Blood 10/30/2023 10:0 5 PM EDT 10/30/2023 10:12 PM EDT Narrative Resulting Agency Comment Spec In Lab Rosa Cornejo MD CHEMISTRY ORDERABLE S [facility] [place] [address] * pro-Brain Natriuretic Peptide (10/30/2023 10:05 PM EDT) NT-proBNP 375 <=449 pg/mL [facility] Blood 10/30/2023 10:0 5 PM EDT 10/30/2023 10:12 PM EDT Narrative Resulting Agency Comment Spec In Lab Rosa Cornejo MD CHEMISTRY ORDERABLE S Performing Organization Address [facility]/ZIP Co de Phone Number [facility] [place] [address] * (ABNORMAL) Comprehensive metabolic panel (non-fasting) (10/30/2023 [...] Protein, Total 6.5 6.1 - 8.0 g/dL [facility] Albumin 4.2 3.2 - [...] S Performing Organization Address [facility]/ZIP Co de Phone Number [facility] [place] [address] * Phosphorus (10/30/2023 10:05 PM EDT) Phosphorus 3.3 2.5 - 4.5 mg/dL [facility] Blood 10/30/2023 10:0 5 PM EDT 10/30/2023 10:12 PM EDT Narrative Resulting Agency Comment Spec In Lab Rosa Cornejo MD CHEMISTRY ORDERABLE S Performing Organization Address City/[facility]/ZIP Co de Phone Number [facility] [place] [address] * Magnesium (10/30/2023 10:05 PM EDT) Magnesium 0.86 0.69 - 1.07 mmol/L [facility] Blood 10/30/2023 10:0 5 PM EDT 10/30/2023 10:12 PM EDT Narrative Resulting Agency Comment Spec In Lab Rosa Cornejo MD CHEMISTRY ORDERABLE S [facility] [place] [address] * (ABNORMAL) Troponin (10/30/2023 10:05 PM EDT) [...] [facility] Hospital Laboratory Test Catalog Reference: Fourth [place] Definition of Myocardial Infarction. Journal of the [place] [employer] 2018;72:5872-4226 Blood 10/30/2023 10:0 5 PM EDT 10/30/2023 10:12 PM EDT Narrative Resulting Agency Comment Spec In Lab Rosa Cornejo MD CHEMISTRY ORDERABLE S [facility] [place] [address] * EKG 12 Lead (10/30/2023 8:21 PM EDT) Ventricular rate 49 BPM MUSE SYSTEM Atrial Rate 49 BPM MUSE SYSTEM P-R Interval 230 ms MUSE SYSTEM QRS Duration 96 ms MUSE SYSTEM Q-T Interval 526 ms MUSE SYSTEM QTC Calculated (Bezet) 475 ms MUSE SYSTEM Calculated P [place] 98 degrees MUSE SYSTEM Calculated R [place] -48 degrees MUSE SYSTEM Calculated T [place] -51 degrees MUSE SYSTEM INTERPRETATION Sinus bradycardia [...] Cornejo MD ECG ORDERABLES Performing Organization Address City/[facility] Co de Phone [...] 100 mcg/mL intracoronary dilution PRN, Starting on Tue10/30/23 at 1728, Until Tue10/30/23 at 2208, Intra-Operative (Intra-Procedure), Routine [...] (Isoptin) (2.5 mg/mL) injection PRN, Starting on Tue10/30/23 at 1728, Until Tue10/30/23 at 2208, Administer [...] Shipley, RN)1435 (Patch Applied - Provider: Moshe Pope, TANESHA)1713 (Due: Patch Removed - Provider: Automatic Discharge [...] (Intra-Procedure), Routine 1346 (Given - Provider: Jason Jimenes, TANESHA)1455 (Given - Provider: Jean Oliveira RN) heparin [...] - Reason: Transfer to a Procedural area)1548 ([facility] Unhold - Provider: Admin [...] - Reason: Transfer to a Procedural area)1548 ([facility] Unhold - Provider: Admin Adt) documented in this encounter Additional Health Concerns Infection Onset Date Last Indicated Resolved Time Rule Out Respiratory 11/02/2023 11/02/2023 024 12:22 PM EDT Rule Out COVID-19 11/02/2023 11/02/2023 11/02/2023 12:22 PM EDT documented as of this encounter Care Teams Decorating Machine Tender Relationship Specialty Start Date End Date Rosie Mathews MD [address] [place] [address] PCP - General Family Medicine 11/25/17 11/23/23 documented as of this encounter
--- OUTSIDE RECORDS SUMMARY | 2024-04-18 13:55 | XMS_ITS | Encounter Summary ---
Author Organization [facility] Address [facility] [place] [address] Care Team Providers Care Police Shift Commander Name Role Phone Rosie Mathews MD Primary Care Provider Encounter Details Date Type Department Care Team (Late st Contact Info) Description 10/30/2023 Telephone [place] [id number] Jose Lee MD [facility] [place] [address] Social History Tobacco Use Types Packs/Day Years Used Date Smoking Tobacco: Former Smokeless Tobacco: Never Alcohol Use Standard Drinks/Week Comments Not Currently 0 (1 standard drink = 0.6 oz pur e alcohol) DH IPV Inpatient Questions Answer Date Recorded [...] in the patient condition. Jose Lee MD Atmospheric Physicist documented in this encounter Plan of Treatment Upcoming Encounters Date Type Department Care Team (Late st Contact Info) Description 10/24/2024 11:00 AM EDT Office Visit Cardiology at [address] [place] [address] Izaiah Meyer MD [facility] [place] [address] documented as of this encounter Visit Diagnoses Not on filedocumented in this encounter Care Teams Police Shift Commander Relationship Specialty Start Date End Date Rosie Mathews MD [address] [place] [address] PCP - General Family Medicine 11/25/17 11/23/23 documented as of this encounter
--- OUTSIDE RECORDS SUMMARY | 2024-04-18 13:55 | XMS_ITS | Encounter Summary ---
Author Organization [facility] Address [facility] [place] [address] Care Team Providers Care Privacy Director Name Role Phone Rosie Mathews MD Primary Care Provider [phone] Encounter Details Date Type Department Care Team (Late st Contact Info) Description 10/30/2023 [place] [address] Jose Lee MD [facility] [place] [address] Social History Tobacco Use Types Packs/Day Years Used Date Smoking Tobacco: Former Smokeless Tobacco: Never Alcohol Use Standard Drinks/Week Comments Not Currently 0 (1 standard drink = 0.6 oz pur e alcohol) [facility] Utilities Answer Date Recorded In the past 12 months has e [employer], gas, oil, or water [employer] threatened to shut off services in your [...] AM EDT Office Visit Cardiology at [address] [phone] Izaiah Meyer MD [facility] [place] [address] documented as of this encounter Visit Diagnoses Not on filedocumented in this encounter Additional Health Concerns Infection Onset Date Last Indicated Resolved Time Rule Out Respiratory 11/02/2023 11/02/2023 024 12:22 PM EDT Rule Out COVID-19 11/02/2023 11/02/2023 11/02/2023 12:22 PM EDT documented as of this encounter Care Teams Privacy Director Relationship Specialty Start Date End Date Rosie Mathews MD [address] [place] [address] PCP - General Family Medicine 11/25/17 11/23/23 documented as of this encounter
--- OUTSIDE RECORDS SUMMARY | 2024-04-18 13:55 | XMS_ITS | Encounter Summary ---
Author Organization [facility] [place] [address] Care Team Providers Care Job Interviewer Name Role Phone Rosie Mathews MD Primary Care Provider [phone] Reason for Visit * Auth/Cert (Routine) Specialty Diagnoses / Procedures Referred By Contbruce t Referred To Contact Diagnoses Unstable angina Chest pain NSTEMI Procedures CARDIAC CATHETERIZATION Rosa Dewey MD [facility] [place] [address] [facility] Referral ID Status Reason Start Date Expiration Date Visits Re quested Visits Authorized [id number] 1 1 Encounter Details Date Type Department Care Team (Late st Contact Info) Description 11/01/2023 3:33 PM EDT - 11/01/2023 5:03 PM EDT Surgery [place] [address] Rosa Dewey MD [facility] [address] [place], [place] [id number] CARDIAC CATHETERIZATION Social History Tobacco Use Types Packs/Day Years Used Date Smoking Tobacco: Former Smokeless Tobacco: Never Alcohol Use Standard Drinks/Week Comments Not Currently 0 (1 standard drink = 0.6 oz pur e alcohol) [facility] Utilities Answer Date Recorded In [...] for hypertension and hyperlipidemia who presented to [facility] as a transfer from [facility] as a possible STEMI alert with acute onset chest pain. The patient reports that her symptoms initially began on Tuesday when she was walking to [facility] and experienced bilateral arm heaviness while walking [...] on repeat, her TRU resolved. Cardiology at [facility] was consulted for transfer; the patient was loaded with aspirin 324 mg and ticagrelor 180 mg, started on a heparin drip, and given nitroglycerin with improvement in chest pain. Upon arrival to [facility], the patient was taken directly to the Packing Shed Supervisor. Two lesions were discovered: one in the prox RCA (felt to almost be a DYNAMITE SHOOTER but they were able to wire, balloon, [...] administered prior to arrival in the laborer plumbing. Recommended anti-platelet/anti-thrombotic regimen: Continue aspirin 81 mg [...] and low lung volumes. Findings similar to customer success advocate radiograph from CT 10/30/2023. Pending Studies and [...] 10:40 AM Izaiah Meyer MD Cardiology at [place] Arrive at: [facility] [address] [phone] Future Orders Complete By Expires Referral to Cardiac Rehab [[id number] Custom] As directed Process Instructions: If no progress note charted, please enter Clinical details in comments. Scheduling Instructions: Questions: My question or request is: STEMI. Cardiac rehab at [facility]. Referral to Home Health [[id number] Custom] As directed Process Instructions: If no progress note charted, please enter Clinical details in comments. Scheduling Instructions: Comments: Please evaluate Adin Santos for admission to Home Health. [address] [facility] [address] (home) Date of : 1940 Inpatient DOCUMENTATION FOR VNA SERVICES (INCLUDING THOSE PATIENTS WITH MEDICARE COVERAGE REQUIRING HOME VNA SERVICES AND/OR HOSPICE SERVICES) PATIENT'S LOCATION: Adin Santos [address] [facility] [address] (home) Cell: Telephone Information: Denture Waxer's Name: self In discussion with the attending physician, it is certified that this patient is under their care and that they, or a Nurse Practitioner, Clinical Nurse specialist or Physician Assistant Loan Processor who is working directly with them, had [...] CARE AGENCY: [facility] [address] [address] START OF CARE: within 24-48 hours of [...] Mathews MD [address] / [facility] [address] . All A agencies [...] MD / Dr. Masood Pierson [address] [place] [address] 11/09/23 1:55 PM arrival for 2:10 PM appointment Correspondence Specialist: Izaiah Meyer MD [address] [place] [address] , 11/24/2023 10:40 AM Your Inpatient Medical Team at [facility] Name(s) of your inpatient provider(s): Attending physician: Rosa Hugo MD Resident physicians: Emile Robles MD; Elmer Tamez MD If you have non-emergent questions, prior to your follow-up visit call: Tuesday-Tuesday between the hours of 8AM-5PM please call the Cardiology Clinic [phone] to speak with a nurse. All other hours please call the Hospital Subassembler [phone] and ask to speak to the service desk technician on-call. Your Primary Care Provider Rosie Mathews MD [phone] For questions regarding this document or issues relating to this hospitalization on the Medical Service, please contact your inpatient physician through the [facility] Subassembler . Issues afterhours and on weekends will be handled by the Correspondence Specialist staff on-call. Associated attestation - Rosa [...] MD / Dr. Masood Pierson [address] [place] [phone] 11/09/23 1:55 PM arrival for 2:10 PM appointment Correspondence Specialist: Izaiah Meyer MD [address] [place] [address] , 11/24/2023 10:40 AM Your Inpatient Medical Team at [facility] Name(s) of your inpatient provider(s): Attending physician: Rosa Hugo MD Resident physicians: Emile Robles MD; Elmer Tamez MD If you have non-emergent questions, prior to your follow-up visit call: Tuesday-Tuesday between the hours of 8AM-5PM please call the Cardiology Clinic [phone] to speak with a nurse. All other hours please call the Hospital Subassembler [phone] and ask to speak to the service desk technician on-call. Your Primary Care Provider Rosie Mathews MD [phone] documented in this encounter Medications at Time [...] as of this encounter Progress Notes * lEmer Tamez MD - 11/02/2023 7:38 AM EDT Inpatient Cardiology Progress Note Patient Name: Adin Santos Date of Admission: 10/30/2023 ( Hospital Day 3 days ) Service: S1 ID: Adin Santos is a 83 y.o. female PMH significant for hypertension and hyperlipidemia who presented to [facility] as a transfer from [facility] [...] for hypertension and hyperlipidemia who presented to [facility] as a transfer from [facility] [...] Resident on Cardiology Service Cardiology S1 (Pager [phone]) Note written in conjunction with Claudio Perla [facility] Medical Student, MS3 Associated attestation - [...] Nirmala Webb - 11/01/2023 11:25 AM EDT Parole Or Probation Officer Encounter Note Patient Name: Adin Santos : [id number] MR#: [id number] Admit Date: 10/30/2023 5:11 PM Hospital Day 2 days Narrative: Self initiated visit to patient for Spiritual support in a regular unit rounds. Assessment: Patient is in the bathroom at the time of this visit. Not a good time for Cardiovascular Surgical Tech visit. Intervention and Outcome: An attempted visit [...] for hypertension and hyperlipidemia who presented to [facility] as a transfer from [facility] [...] and low lung volumes. Findings similar to customer success advocate radiograph from CT 10/30/2023. Scheduled Medications: [AUG [...] for hypertension and hyperlipidemia who presented to [facility] as a transfer from [facility] [...] Resident on Cardiology Service Cardiology S1 (Pager [phone]) Note written in conjunction with Claudio Perla [facility] Medical Student, MS3 Associated attestation - [...] for hypertension and hyperlipidemia who presented to [facility] as a transfer from [facility] as a possible STEMI alert with acute onset chest pain. Active Problems: Active Hospital Problems Diagnosis Unstable angina Resolved Hospital Problems No resolved problems to display. 24 hr events: - Cath'd yesterday with lesion in the proximal RCA (initially thought it was DYNAMITE SHOOTER but they were ableto wire, balloon and [...] and low lung volumes. Findings similar to customer success advocate radiograph from CT 10/30/2023. TTE (10/30): Interpretation [...] for hypertension and hyperlipidemia who presented to [facility] as a transfer from [facility] [...] Resident on Cardiology Service Cardiology S1 (Pager [phone]) Note written in conjunction with Claudio Perla [facility] Medical Student, MS3 Associated attestation - [...] info: Name: Adin Santos : 1940 PCP: Rosei Mathews MD PCP phone number: [phone] Date of Admission: 10/30/2023 ( Hospital Day 0 days ) Attending:Rosa Cornejo MD ID: Adin Santos is a 83 y.o. female PMH significant for hypertension and hyperlipidemia who presented to [facility] as a transfer from [facility] as a possible STEMI alert with acute onset chest pain. The patient reports that her symptoms initially began on Tuesday when she was walking to [facility] and experienced bilateral arm heaviness while walking [...] on repeat, her TRU resolved. Cardiology at [facility] was consulted for transfer; the patient was loaded with aspirin 324 mg and ticagrelor 180 mg, started on a heparin drip, and given nitroglycerin with improvement in chest pain. Upon arrival to [facility], the patient was taken directly to the Packing Shed Supervisor. Two lesions were discovered: one in the prox RCA (felt to almost be a DYNAMITE SHOOTER but they were able to wire, balloon, [...] and low lung volumes. Findings similar to customer success advocate radiograph from CT 10/30/2023. Assessment & Plan: Adin Santos is a 83 y.o. female PMH significant for hypertension and hyperlipidemia who presented to [facility] as a transfer from [facility] [...] with HTN HLD transferred with chest from [facility]. BP 217/68, HR 71 EKG [...] information for follow-up Home Health & Hospice, [place] [address] TANESHA BOYCE confirmed with [facility] that they will see the patient within 24-48 hours of discharge for start of care. Transportation: family or friend will provide Wheelchair van/Ambulance? No Functional status prior to admission: Assistive Equipment Home Environment: Others in the home: alone. Current Living Arrangements: home/apartment/condo. Accessibility Concerns:1st floor apartment in care home community; handicapped accessible. Current Functional Ability: Assistive Equipment DME used at home: cane - straight, grab bar - tub/shower, grab bar - toilet, raised toilet seat DME Needed at Discharge: N/A Patient is insured through: Primary Insurance: [employer] MANAGED MEDICARE Payor: [employer] MANAGED MEDICARE / Plan: [employer] MANAGED MEDICARE PPO / Product Type: *No [...] in the room. Electrolytes replaced, see MAR. photofinishing laboratory worker sites remained C/D/I with baseline ecchymosis unchanged. Pt complained of back pain, lidocaine patch given. Right IV infiltrated during infusion, patient is marked with sharpie, IV removed. See flowsheet for I+O's and safety rounding. Patient is able to make needs known and call capps within reach. PLAN MOVING FORWARD: Monitor Tele, control BP, monitor laborer plumbing sites, D/C Planning INDIVIDUALIZED FALL PREVENTION INTERVENTIONS: [...] in an outpatient cardiac rehabilitation program at [facility] was discussed. Patient agrees to [...] above on RA. PT went to laborer plumbing today. Left fem site oozed throughout shift, [...] FORWARD: Monitor Tele, control BP, monitor laborer plumbing sites, D/C Planning INDIVIDUALIZED FALL PREVENTION INTERVENTIONS: [...] Implemented as Appropriate) * Initial Assessments - Burce Waller RN - 11/01/2023 1:59 PM EDT Office of Care Management Initial Assessment Bruce Waller RN reviewed record and discussed patient with Care Team. Source of Information: Team, bedside nurse, medical record, and Patient, Chart Review Introduced self/reviewed role; services accepted. Admitted From: Transfer from another hospital Location: [facility] Reason for Hospitalization: chest pain Covid Vaccination Status: 1st, 2nd & booster Past medical History: No past medical history on file. Hospitalizations Within the Past 30 Days: no previous admission in last 30 days Current Decision-Making Capacity: Self If AD's have not been completed the following surrogate would be surrogate decision maker per [place] surrogate decision making law. (Only good for 180 days) Any patient receiving care in [place] must abide by [place] law. The hierarchy for surrogate decision making [...] Arrangements: home/apartment/condo. Accessibility Concerns:1st floor apartment in care home community; handicapped accessible. In the last [...] has the electric, gas, oil, or water [employer] threatened to shut off services in your [...] toilet seat Home Address confirmed as: [address] [facility] [address] Social & Family Supports: All names listed below confirmed with patient as current and correct Extended Emergency Contact Information Primary Emergency Contact: Iris Downing Address: [address], [place] [address] [place] [address] Mobile Relation: Child Secondary Emergency Contact: Karen More Address: [address] [facility] Mobile Relation: Child Current Care Provided by: self Provides Primary Care For: no one Caregiver if needed: child(emmanuel), adult Quality of Family relationships: involved, supportive Community Resources being provided currently: other (see comments) (receives [facility] services at home (1xweekly)) [...] Specific Information: N/A Health/Prescription Coverage: Primary Insurance: [employer] MANAGED MEDICARE Payor: [employer] MANAGED MEDICARE / Plan: [employer] MANAGED MEDICARE PPO / Product Type: *No Product type* / Secondary Insurance: N/A Prescription Coverage: Yes Preferred Pharmacy: [id number] - [place], [place] - [address] [place] [id number] [place] Status: Patient is a : No Primary Care Provider listed: Masood Pierson MD [phone] Patient/Caregiver Goals of Treatment: home when MR Potential Needs for Transition of Care: home health care Agency Referrals: Not Applicable I have met with the patient to: discuss discharge planning needs. provide the [facility], Office of Care Management letter from the Automotive Alignment Specialist pertaining to rehab referrals. provide a letter describing our affiliations within the [facility] and educate about their right to choose where referrals are sent. provide a list of Home Health Agencies / Durable Medical Equipment vendors which serve their preferred geographic area. provided patient with [facility] Star Quality Rating handout. They have requested referrals to: [facility] [address] [place] [address] Note routed to a Care Analyst who will communicate referrals to facilities [...] results. PO hydralazine added for BP control. photofinishing laboratory worker sites remain C/D/I, ecchymosis unchanged th roughout shift. See flowsheet for I+O's and safety rounding. Patient is able to make needs known and call capps within reach. PLAN MOVING FORWARD: Monitor Tele, control CP and BP, NPO at MD for cath, monitor laborer plumbing sites, D/C Planning INDIVIDUALIZED FALL PREVENTION INTERVENTIONS: [...] 11:00 AM EDT Office Visit Cardiology at [address] [place] [address] Izaiah Meyer MD [facility] [place] [address] Scheduled Referrals Name Type Priority Associated Diagnoses [...] Absolute 5.28 1.70 - 6.10 x10(3)/mc L [facility] Lymph % 15.2 % [facility] Lymphocytes Abs 1.3 0.9 - 3.2 x10(3)/mc L [facility] Monocyte % 16.9 % [facility] Monocyte Abs 1.4(H) 0.3 - 0.9 x10(3)/ L [facility] Eos % 3.7 % [facility] Eosinophils Abs 0.3 0.0 - 0.4 x10(3)/ L [facility] Basophil % 0.5 % [facility] Baso Absolute 0.0 0.0 - 0.1 x10(3)/mc L [facility] Immature Gran % 0.40 % [facility] Comment: Immature granulocytes(IG's)percentage and absolute count will include metamyelocytes, myelocytes, and promyelocytes. Blood smears from CBCs yielding IG's will be scanned manually for concordance. If this scan disagrees with the automated IG or if promyelocytes are noted, a manual differential will be performed. Immature Gran Absolute 0.03 0.00 - 0.04 x10(3)/mc L [facility] Blood 11/03/2023 3:46 AM EDT 11/03/2023 4:11 AM EDT Narrative Resulting Agency Comment Spec In Lab Qamar Gallardo MD HEMATOLOGY ORDERABLE S [facility] [place] [address] * (ABNORMAL) Hemogram (11/03/2023 3:46 AM EDT) White Blood Cell 8.3 4.0 - 9.5 x10(3)/mc L [facility] Red Blood Cell 3.77(L) 4.00 - 5.21 x10(6)/mc L [facility] Hemoglobin 13.1 11.7 - 15.5 g/dL [facility] Hematocrit 38.0 35.7 - 45.8 % [facility] Mean Cell Volume 100.8(H) 82.6 - 94.4 fL [facility] Mean Cell Hemoglobin 34.7(H) 27.1 - 32.0 pg [facility] Mean Cell Hemoglobin Concentration 34.5 31.7 - 35.0 g/dL [facility] Platelet 181 145 - 357 x10(3)/mc L [facility] RDW Standard Deviation 54.7(H) 37.0 - 46.0 fL [facility] RDW coefficient of variation 14.6(H) 11.5 - 14.1 % [facility] Mean Platelet Volume 11.2 7.6 - 12.9 fL [facility] NRBC% auto 0.0 % [facility] NRBC Absolute 0.000 0.000 - 0.000 x10(3)/mc L [facility] Blood 11/03/2023 3:46 AM EDT 11/03/2023 4:11 AM EDT Narrative Resulting Agency Comment Spec In Lab Qamar Gallardo MD HEMATOLOGY ORDERABLE S Performing Organization Address City/[facility]/ZIP Co de Phone Number [facility] [place] [address] * Phosphorus (11/03/2023 3:46 AM EDT) Pathologist [facility] Phosphorus 3.2 2.5 - 4.5 mg/dL [facility] Comment:result rechecked-KS Blood 11/03/2023 3:46 AM EDT 11/03/2023 4:11 AM EDT Narrative Resulting Agency Comment Spec In Lab Rosa Cornejo MD CHEMISTRY ORDERABLE S Performing Organization Address [facility] Co de Phone Number [facility] [place] [address] * Magnesium (11/03/2023 3:46 AM EDT) [facility] Magnesium 0.90 0.69 - 1.07 mmol/L [facility] Blood 11/03/2023 3:46 AM EDT 11/03/2023 4:11 AM EDT Narrative Resulting Agency Comment Spec In Lab Rosa Cornejo MD CHEMISTRY ORDERABLE S Performing Organization Address [facility] Co de Phone Number [facility] [place] [address] * (ABNORMAL) Basic Metabolic Panel (non-fasting) (11/03/2023 3:46 AM EDT) Pathologist [facility] Glucose 105 65 - 199 mg/dL [facility] Comment:Diabetes: >=200 mg/d L plus symptoms Blood Urea Nitrogen 13 8 - 18 mg/dL [facility] Creatinine 0.83 0.70 - 1.20 mg/dL [facility] Sodium 139 135 - 145 mmol/L [facility] Potassium 4.0 3.5 - 5.0 mmol/L [facility] Comment: Please note: ??Patients with WBC >100,000 may have falsely elevated Potassium levels. ??For accurate Potassium quantification in these patients send serum separator tube (gold top) for subsequent determinations. ??Contact the Clinical Chemistry Laboratory if there are any questions. Chloride 108(H) 98 - 107 mmol/L [facility] Carbon Dioxide 19(L) 22 - 31 mmol/L [facility] Anion Gap 12 5 - 15 mmol/L [facility] Calcium 8.2(L) 8.5 - 10.5 mg/dL [facility] Est Glomerular Filtration Rate 69 >=60 mL/min/1. 73 m?? [facility] Comment: This patient's [...] Lab Rosa Cornejo MD CHEMISTRY ORDERABLE S [facility] [place] [address] * EKG 12 Lead (11/02/2023 12:44 PM EDT) Ventricular rate 83 BPM MUSE SYSTEM Atrial Rate 83 BPM MUSE SYSTEM P-R Interval 216 ms MUSE SYSTEM QRS Duration 90 ms MUSE SYSTEM Q-T Interval 384 ms MUSE SYSTEM QTC Calculated (Bezet) 451 ms MUSE SYSTEM Calculated P [place] 92 degrees MUSE SYSTEM Calculated R [place] -51 degrees MUSE SYSTEM Calculated T [place] -33 degrees MUSE SYSTEM INTERPRETATION Sinus rhythm [...] specimen volume Bacteria, Urine Many(A) None /HPF [facility] Squamous Epithelial Cells Raw Data, Urine 10(H) <=4 /HPF [facility] Hyaline Casts, Urine 2 0 - 2 /LPF [facility] Comment: Interpret results with caution, microscopic results are from suboptimal specimen volume Clean Catch Urine 11/02/2023 11:40 AM EDT 11/02/2023 12:05 PM EDT Narrative Resulting Agency Comment Spec In Lab Elmer Tamez MD URINE ORDERABLES [facility] [place] [address] * (ABNORMAL) Urinalysis with reflex Culture (11/02/2023 11:40 AM EDT) Glucose, Urine Dipstick Negative Negative mg/dL [facility] Protein, Urine Dipstick 30(A) Negative mg/dL [facility] Bilirubin, Urine Dipstick Negative Negative mg/dL [facility] Comment: Clinical correlation required for positive Urine Bilirubin results as false positive may occur with some drugs and drug related products. If a false positive is suspected a serum total bilirubin should be considered if clinically indicated. Urobilinogen, Urine Dipstick Normal Normal mg/dL [facility] pH, Urn (dipstick) 5.5 5.0 - 8.0 [facility] Blood, Urine Dipstick Negative Negative mg/dL [facility] Ketone, Urine Dipstick Trace(A) Negative mg/dL [facility] Nitrite, Urine Dipstick Positive(A) Negative [facility] Leukocytes, Urine Dipstick Small(A) Negative [facility] Appearance, Urine Dipstick Cloudy(A) Clear [facility] Specific [place] Urine Automated >=1.030(A) 1.005 - 1.030 [facility] Color, Urine Dipstick Dark Yellow Yellow [facility] Reflex to Culture Yes [facility] Clean Catch Urine 11/02/2023 11:40 AM EDT 11/02/2023 12:04 PM EDT Narrative Resulting Agency Comment Spec In Lab Rosa Hugo MD URINE ORDERABLES Performing Organization Address City/State/[facility] Co de Phone Number [facility] [place] [address] * Respiratory Panel PCR (11/02/2023 10:15 AM EDT) Respiratory Panel Source LAUNDRY SUPERVISOR Swab [facility] [facility] Respiratory Panel PCR Negative Negative [facility] Comment: Respiratory Panels are performed on the Addepar, using multiplexed PCR nucleic acid detection. ??Negative results do not preclude respiratory infection and should not be used as the sole basis for diagnosis, treatment or other management decisions. Adenovirus Not Detected Not Detected [facility] Coronavirus HKU1 Not Detected Not Detected [facility] Coronavirus NL63 Not Detected Not Detected [facility] Coronavirus 229E Not Detected Not Detected [facility] Coronavirus OC43 Not Detected Not Detected [facility] SARS-CoV-2 Not Detected Not Detected [facility] Comment: Testing for SARS-CoV-2 (Severe acute respiratory syndrome coronavirus 2) to aid in the diagnosis of COVID-19 is performed using the BioFire Respiratory Panel 2.1 ([employer]) as authorized by the FDA issued Emergency Use Authorization (EUA). This panel also tests for multiple other viral and bacterial pathogens. This assay is intended for In-vitro Diagnostic (IVD) use with nasopharyngeal swabs in viral transport media. The assay is performed based on the instructions for use and additional guidance provided by the FDA. Testing is performed in laboratories within the [facility], each of which is certified [...] fact sheets at the following FDA website: https://www.fda.gov/medical-devices/hciiqhebmhu-gbrowue-5921-zdjxp-21-nbwxgniiz- use-a fcbpzylltrkct-glhucbu-gimcalr/rexol-qquqpojwazo-gzeh Human Metapneumovirus Not Detected Not Detected [facility] Human Rhinovirus/Enterov irus Not Detected Not Detected [facility] Influenza A Not Detected Not Detected [facility] Influenza B Not Detected Not Detected [facility] Parainfluenza 1 Not Detected Not Detected [facility] Parainfluenza 2 Not Detected Not Detected [facility] Parainfluenza 3 Not Detected Not Detected [facility] Parainfluenza 4 Not Detected Not Detected [facility] Respiratory Syncytial Virus Not Detected Not Detected [facility] Chlamydophila pneumoniae Not Detected Not Detected [facility] Mycoplasma pneumoniae Not Detected Not Detected [facility] Nasopharyngeal Swab 11/02/19 10:15 AM EDT 11/02/2023 10:49 AM EDT Narrative Resulting Agency Comment Spec In Lab Rosa Hugo MD MICROBIOLOGY - GEN ERAL ORDERABLES [facility] [place] [address] * XR Chest One View (11/02/2023 2:51 AM EDT) WORKSTATION ID [id number] RAD Anatomical Region Laterality Modality Chest N/A [...] have questions please contact the health career and technology education teacher that requested your imaging first. ? Electronically signed by: Omaira Tran MD, [facility] ([phone]), at 11/02/2023 4:56 AM Narrative 11/02/2023 4:56 [...] who have questions please contactthe health career and technology education teacher that requested your imaging first. Electronically signed by: Omaira Tran MD, [facility]([phone]), at 11/02/2023 4:56 AM Rosa Hugo MD IMG DX ORDERABLES * (ABNORMAL) Differential, Automated (11/02/2023 12:35 AM EDT) Neutrophil % 76.5 % [facility] Neutrophil Absolute 7.69(H) 1.70 - 6.10 x10(3)/mc L [facility] Lymph % 8.3 % [facility] Lymphocytes Abs 0.8(L) 0.9 - 3.2 x10(3)/mc L [facility] Monocyte % 12.9 % [facility] Monocyte Abs 1.3(H) 0.3 - 0.9 x10(3)/mc L [facility] Eos % 1.4 % [facility] Eosinophils Abs 0.1 0.0 - 0.4 x10(3)/mc L [facility] Basophil % 0.4 % [facility] Baso Absolute 0.0 0.0 - 0.1 x10(3)/mc L [facility] Immature Gran % 0.50 % [facility] Comment: Immature granulocytes(IG's)percentage and absolute count will include metamyelocytes, myelocytes, and promyelocytes. Blood smears from CBCs yielding IG's will be scanned manually for concordance. If this scan disagrees with the automated IG or if promyelocytes are noted, a manual differential will be performed. Immature Gran Absolute 0.05(H) 0.00 - 0.04 x10(3)/mc L [facility] Blood 11/02/2023 12:3 5 AM EDT 11/02/2023 12:43 AM EDT Narrative Resulting Agency Comment Spec In Lab Qamar Gallardo MD HEMATOLOGY ORDERABLE S [facility] [place] [address] * (ABNORMAL) Hemogram (11/02/2023 12:35 AM EDT) White Blood Cell 10.0(H) 4.0 - 9.5 x10(3)/ L [facility] Red Blood Cell 4.06 4.00 - 5.21 x10(6)/mc L [facility] Hemoglobin 13.8 11.7 - 15.5 g/dL [facility] Hematocrit 39.8 35.7 - 45.8 % [facility] Mean Cell Volume 98.0(H) 82.6 - 94.4 fL [facility] Mean Cell Hemoglobin 34.0(H) 27.1 - 32.0 pg [facility] Mean Cell Hemoglobin Concentration 34.7 31.7 - 35.0 g/dL [facility] Platelet 198 145 - 357 x10(3)/mc L [facility] RDW Standard Deviation 52.1(H) 37.0 - 46.0 fL [facility] RDW coefficient of variation 14.3(H) 11.5 - 14.1 % [facility] Mean Platelet Volume 11.4 7.6 - 12.9 fL [facility] NRBC% auto 0.0 % [facility] NRBC Absolute 0.000 0.000 - 0.000 x10(3)/mc L [facility] Blood 11/02/2023 12:3 5 AM EDT 11/02/2023 12:43 AM EDT Narrative Resulting Agency Comment Spec In Lab Qamar Gallardo MD HEMATOLOGY ORDERABLE S [facility] [place] [address] * (ABNORMAL) Phosphorus (11/02/2023 12:35 AM EDT) Phosphorus 1.6(L) 2.5 - 4.5 mg/dL [facility] Blood 11/02/2023 12:3 5 AM EDT 11/02/2023 12:43 AM EDT Narrative Resulting Agency Comment Spec In Lab Rosa Cornejo MD CHEMISTRY ORDERABLE S Performing Organization Address City/[facility]/ZIP Co de Phone Number [facility] [place] [address] * Magnesium (11/02/2023 12:35 AM EDT) Magnesium 0.87 0.69 - 1.07 mmol/L [facility] Blood 11/02/2023 12:3 5 AM EDT 11/02/2023 12:43 AM EDT Narrative Resulting Agency Comment Spec In Lab Rosa Cornejo MD CHEMISTRY ORDERABLE S Performing Organization Address City/[facility]/ZIP Co de Phone Number [facility] [place] [address] * Basic Metabolic Panel (non-fasting) (11/02/2023 12:35 AM EDT) Glucose 125 65 - 199 mg/dL [facility] Comment:Diabetes: >=200 mg/d L plus symptoms Blood Urea Nitrogen 9 8 - 18 mg/dL [facility] Creatinine 0.83 0.70 - 1.20 mg/dL [facility] Sodium 136 135 - 145 mmol/L [facility] Potassium 3.6 3.5 - 5.0 mmol/L [facility] Comment: Please note: ??Patients with WBC >100,000 may have falsely elevated Potassium levels. ??For accurate Potassium quantification in these patients send serum separator tube (gold top) for subsequent determinations. ??Contact the Clinical Chemistry Laboratory if there are any questions. Chloride 102 98 - 107 mmol/L [facility] Carbon Dioxide 25 22 - 31 mmol/L [facility] Anion Gap 9 5 - 15 mmol/L [facility] Calcium 9.0 8.5 - 10.5 mg/dL [facility] Est Glomerular Filtration Rate 69 >=60 mL/min/1. 73 m?? [facility] Comment: This patient's [...] Lab Rosa Cornejo MD CHEMISTRY ORDERABLE S [facility] [place] [address] * Blood culture (11/02/2023 12:35 AM EDT) Blood Culture No growth at 5 days. [facility] Blood 11/02/2023 12:3 5 AM EDT 11/02/2023 1:55 AM EDT Comment:#2 site ukn Narrative Resulting Agency Comment Spec In Lab Rosa Hugo MD MICROBIOLOGY - BLO OD ORDERABLES Performing Organization Address City/[facility]/ZIP Co de Phone Number [facility] [place] [address] * Blood culture (11/02/2023 12:15 AM EDT) Blood Culture No growth at 5 days. [facility] Blood 11/02/2023 12:1 5 AM EDT 11/02/2023 1:54 AM EDT Comment:#1site unk Narrative Resulting Agency Comment Spec In Lab Rosa Hugo MD MICROBIOLOGY - BLO OD ORDERABLES Performing Organization Address [facility] Co de Phone Number [facility] [place] [address] * EKG 12 Lead (11/01/2023 10:10 PM EDT) Ventricular rate 139 BPM MUSE SYSTEM Atrial Rate 139 BPM MUSE SYSTEM P-R Interval 168 ms MUSE SYSTEM QRS Duration 84 ms MUSE SYSTEM Q-T Interval 286 ms MUSE SYSTEM QTC Calculated (Bezet) 435 ms MUSE SYSTEM Calculated R [place] -59 degrees MUSE SYSTEM Calculated T [place] -27 degrees MUSE SYSTEM INTERPRETATION Mid-RP tachycardia, [...] interpretation Confirmed by fellow MD Bowen Ashley ([id number]) on 11/04/2023 7:57:50 AM Confirmed by MD Carrillo Danette ([id number]) on 11/04/2023 4:32:03 PM MUSE SYSTEM 11/01/2023 10:1 0 PM EDT 11/04/2023 4:32 PM EDT Rosa Cornejo MD ECG ORDERABLES MUSE SYSTEM * (ABNORMAL) Hemogram (11/01/2023 10:06 PM EDT) White Blood Cell 10.4(H) 4.0 - 9.5 x10(3)/mc L [facility] Red Blood Cell 4.11 4.00 - 5.21 x10(6)/mc L [facility] Hemoglobin 14.0 11.7 - 15.5 g/dL [facility] Hematocrit 41.1 35.7 - 45.8 % [facility] Mean Cell Volume 100.0(H) 82.6 - 94.4 fL [facility] Mean Cell Hemoglobin 34.1(H) 27.1 - 32.0 [facility] Mean Cell Hemoglobin Concentration 34.1 31.7 - 35.0 g/dL [facility] Platelet 197 145 - 357 x10(3)/mc L [facility] RDW Standard Deviation 54.0(H) 37.0 - 46.0 [facility] RDW coefficient of variation 14.6(H) 11.5 - 14.1 % [facility] Mean Platelet Volume 11.2 7.6 - 12.9 [facility] NRBC% auto 0.0 % [facility] NRBC Absolute 0.000 0.000 - 0.000 x10(3)/mc L [facility] Blood 11/01/2023 10:0 6 PM EDT 11/01/2023 10:22 PM EDT Narrative Resulting Agency Comment Spec In Lab Rosa Hugo MD HEMATOLOGY ORDERAB LES [facility] [place] [address] * POCT Glucose (11/01/2023 5:59 PM EDT) Glucose, POC 104 65 - 199 mg/dL [facility] Comment: Supplemental ranges: <140 mg/dL before meals <180 mg/dL all other times of the day Blood 11/01/2023 5:59 PM EDT 11/01/2023 5:59 PM EDT Rosa Hugo MD POINT OF CARE TEST ORDERABLES [facility] [place] [address] * POCT Glucose (11/01/2023 5:35 PM EDT) Glucose, POC 85 65 - 199 mg/dL [facility] Comment: Supplemental ranges: <140 mg/dL before meals <180 mg/dL all other times of the day Blood 11/01/2023 5:35 PM EDT 11/01/2023 5:35 PM EDT Rosa Hugo MD POINT OF CARE TEST ORDERABLES [facility] [place] [address] * EKG 12 Lead (11/01/2023 3:22 PM EDT) Ventricular rate 59 BPM MUSE SYSTEM Atrial Rate 59 BPM MUSE SYSTEM P-R Interval 220 ms MUSE SYSTEM QRS Duration 94 ms MUSE SYSTEM Q-T Interval 428 ms MUSE SYSTEM QTC Calculated (Bezet) 423 ms MUSE SYSTEM Calculated P [place] 76 degrees MUSE SYSTEM Calculated R [place] -50 degrees MUSE SYSTEM Calculated T [place] -59 degrees MUSE SYSTEM INTERPRETATION Sinus bradycardia [...] Modality Other Narrative 11/02/2023 4:57 PM EDT ?[facility] ? Cardiac Catheterization/Intervention Report ? Patient Name: Adin Santos. ? Procedure Date: 11/01/2023 ? A #: [id number] ? Primary Physician: Rosa Dewey I ? Case #: [id number] ? File Name: [id number] ? Catheterization Order Number: [id number] ? [facility] ? Final Report [place], [place] ? Patient Name: ? Adin M. Goguen ?ID#: ?[id number] ? : ?1940 ? Procedure Date: ? [...] was designated as ASA Class III. The [facility] clinical ?frailty scale is 4: Vulnerable. [...] was Urgent. The indication for ?the laborer plumbing visit is ACS greater than 24 hrs. [...] premounted ? 3.50 x 15 mm Andrea [place] (RADHA) was deployed with a maximum ? [...] ? A premounted 3.50 x 15 mm [place] (RADHA) was deployed ? with a maximum [...] administered prior to arrival in the laborer plumbing. ?Recommended anti-platelet/anti-thrombotic regimen: ?Continue aspirin 81 mg daily for indefinitely. ?Continue clopidogrel 75 mg daily for 12 months then stop. ?These recommendations are made at the time of the intervention. Patient ?and provider preferences or a changing clinical situation may require ?modification of this regimen. Consult [facility] Interventional Cardiology for ?questions. ?The 1 year [...] Procedure Note Rosa Dewey MD - 12/12/2023 [facility] Cardiac Catheterization/Intervention Report Patient Name: Adin Santos Procedure Date: 11/01/2023 A #: [id number] Primary Physician: Rosa Dewey I Case #: [id number] File Name: [id number] Catheterization Order Number: [id number] [facility] FinalReport [place], [place] Patient Name: Adin Santos ID#:[id number] :1940 Procedure Date: November 01, 2023 Case [...] procedure was Urgent. The indicationfor the laborer plumbing visit is ACS greater than 24 hrs. [...] atmospheres. Apremounted 3.50 x 15 mm Andrea [place] (RADHA) was deployed with amaximum inflation pressure [...] The lesion was predilated with a 3.00mm [id number] MM balloon with a maximum inflation pressure of 14atmospheres. A premounted 3.50 x 15 mm [place] (RADHA) wasdeployed with a maximum inflation pressure [...] administered prior to arrival in the laborer plumbing. Recommended anti-platelet/anti-thrombotic regimen: Continue aspirin 81 mg daily for indefinitely. Continue clopidogrel 75 mg daily for 12 months then stop. These recommendations are made at the time of the intervention.Patient and provider preferences or a changing clinical situation mayrequire modification of this regimen. Consult [facility] Interventional Cardiologyfor questions. The 1 year bleeding [...] * POCT Glucose (11/01/2023 7:06 AM EDT) Glucose, POC 93 65 - 199 mg/dL [facility] Comment: Supplemental ranges: <140 mg/dL before meals <180 mg/dL all other times of the day Blood 11/01/2023 7:06 AM EDT 11/01/2023 7:06 AM EDT Jean Laboy MD POINT OF CARE TEST O RDERABLES [facility] [place] [address] * (ABNORMAL) Differential, Automated (11/01/2023 3:09 AM EDT) Neutrophil % 63.9 % [facility] Neutrophil Absolute 5.54 1.70 - 6.10 x10(3)/mc L [facility] Lymph % 20.0 % [facility] Lymphocytes Abs 1.7 0.9 - 3.2 x10(3)/mc L [facility] Monocyte % 11.9 % [facility] Monocyte Abs 1.0(H) 0.3 - 0.9 x10(3)/ L [facility] Eos % 3.2 % [facility] Eosinophils Abs 0.3 0.0 - 0.4 x10(3)/ L [facility] Basophil % 0.5 % [facility] Baso Absolute 0.0 0.0 - 0.1 x10(3)/[facility] Immature Gran % 0.50 % [facility] Comment: Immature granulocytes(IG's)percentage and absolute count will include metamyelocytes, myelocytes, and promyelocytes. Blood smears from CBCs yielding IG's will be scanned manually for concordance. If this scan disagrees with the automated IG or if promyelocytes are noted, a manual differential will be performed. Immature Gran Absolute 0.04 0.00 - 0.04 x10(3)/[facility] Blood 11/01/2023 3:09 AM EDT 11/01/2023 3:29 AM EDT Narrative Resulting Agency Comment Spec In Lab Qamar Gallardo MD HEMATOLOGY ORDERABLE S [facility] [place] [address] * (ABNORMAL) Hemogram (11/01/2023 3:09 AM EDT) White Blood Cell 8.7 4.0 - 9.5 x10(3)/ L [facility] Red Blood Cell 3.72(L) 4.00 - 5.21 x10(6)/[facility] Hemoglobin 12.5 11.7 - 15.5 g/dL [facility] Hematocrit 36.8 35.7 - 45.8 % [facility] Mean Cell Volume 98.9(H) 82.6 - 94.4 fL [facility] Mean Cell Hemoglobin 33.6(H) 27.1 - 32.0 pg [facility] Mean Cell Hemoglobin Concentration 34.0 31.7 - 35.0 g/dL [facility] Platelet 184 145 - 357 x10(3)/mc L [facility] RDW Standard Deviation 53.5(H) 37.0 - 46.0 fL [facility] RDW coefficient of variation 14.6(H) 11.5 - 14.1 % [facility] Mean Platelet Volume 11.3 7.6 - 12.9 fL [facility] NRBC% auto 0.0 % [facility] NRBC Absolute 0.000 0.000 - 0.000 x10(3)/mc L [facility] Blood 11/01/2023 3:09 AM EDT 11/01/2023 3:29 AM EDT Narrative Resulting Agency Comment Spec In Lab Qamar Gallardo MD HEMATOLOGY ORDERABLE S [facility] [place] [address] * Phosphorus (11/01/2023 3:09 AM EDT) Phosphorus 2.5 2.5 - 4.5 mg/dL [facility] Blood 11/01/2023 3:09 AM EDT 11/01/2023 3:29 AM EDT Narrative Resulting Agency Comment Spec In Lab Rosa Cornejo MD CHEMISTRY ORDERABLE S [facility] [place] [address] * Magnesium (11/01/2023 3:09 AM EDT) Magnesium 0.82 0.69 - 1.07 mmol/L [facility] Blood 11/01/2023 3:09 AM EDT 11/01/2023 3:29 AM EDT Narrative Resulting Agency Comment Spec In Lab Rosa Cornejo MD CHEMISTRY ORDERABLE S [facility] [place] [address] * (ABNORMAL) Basic Metabolic Panel (non-fasting) (11/01/2023 3:09 AM EDT) Glucose 100 65 - 199 mg/dL [facility] Comment:Diabetes: >=200 mg/d L plus symptoms Blood Urea Nitrogen 14 8 - 18 mg/dL [facility] Creatinine 0.83 0.70 - 1.20 mg/dL [facility] Sodium 137 135 - 145 mmol/L [facility] Potassium 3.4(L) 3.5 - 5.0 mmol/L [facility] Comment: Please note: ??Patients with WBC >100,000 may have falsely elevated Potassium levels. ??For accurate Potassium quantification in these patients send serum separator tube (gold top) for subsequent determinations. ??Contact the Clinical Chemistry Laboratory if there are any questions. Chloride 105 98 - 107 mmol/L [facility] Carbon Dioxide 24 22 - 31 mmol/L [facility] Anion Gap 8 5 - 15 mmol/L [facility] Calcium 8.6 8.5 - 10.5 mg/dL [facility] Est Glomerular Filtration Rate 69 >=60 mL/min/1. 73 m?? [facility] Comment: This patient's [...] Organization Address City/[facility]/ZIP Co de Phone Number [facility] [place] [address] * (ABNORMAL) Troponin (10/31/2023 2:46 PM EDT) Troponin-T, High Sensitivity 544(H) <=14 ng/L [facility] Comment: This patient's [...] found in the [facility] Test Catalog Troponin - [facility] Test Catalog Reference: Fourth [place] Definition of Myocardial Infarction. Journal of the [employer] 2018;72:5439-5773 Blood 10/31/2023 2:46 PM EDT 10/31/2023 2:55 PM EDT Narrative Resulting Agency Comment Spec In Lab Jean Laboy MD CHEMISTRY ORDERABLES Performing Organization Address City/[facility]/ZIP Co de Phone Number [facility] [place] [address] * EKG 12 Lead (10/31/2023 1:07 PM EDT) Ventricular rate 54 BPM MUSE SYSTEM Atrial Rate 54 BPM MUSE SYSTEM P-R Interval 218 ms MUSE SYSTEM QRS Duration 92 ms MUSE SYSTEM Q-T Interval 540 ms MUSE SYSTEM QTC Calculated (Bezet) 512 ms MUSE SYSTEM Calculated P [place] 85 degrees MUSE SYSTEM Calculated R [place] -44 degrees MUSE SYSTEM Calculated T [place] -69 degrees MUSE SYSTEM INTERPRETATION Sinus bradycardia [...] [place] Troponin-T, High Sensitivity 580(H) <=14 ng/L [facility] Comment: This patient's [...] found in the [facility] Test Catalog Troponin - [facility] Test Catalog Reference: Fourth [place] Definition of Myocardial Infarction. Journal of the [employer] 2018;72:1867-8518 Blood 10/31/2023 11:3 7 AM EDT 10/31/2023 11:50 AM EDT Narrative Resulting Agency Comment Spec In Lab Rosa Cornejo MD CHEMISTRY ORDERABLE S Performing Organization Address City/State/[facility] Co de Phone Number [facility] [place] [address] * ECHO COMPLETE (10/31/2023 8:52 AM EDT) Anatomical Region Laterality Modality Cardiac Other 10/31/2023 7:57 AM EDT Narrative 10/31/2023 9:45 AM EDT [address] [place] [address] ? Echocardiogram Report Name: TREY SANTOSA Dorene ? Study Date: 10/31/2023 07:57 AMBP: 106/76 mmHg ? Patient Location: [address] : 1940 ? Height: 163 cm ? Account: [id number] Age: 83 yrs ? Weight: 76 kg Gender: Female ?BSA: 1.8 m2 Ordering Physician: ROSA DEWEY Referring Physician: OMAIRA GIRON Performed By: HAFSA Carmichael Reason For Study: STEMI Interpreting Fellow: Raymond Warren. Exam Location: [facility]. Interpretation Summary -The left [...] is no prior echocardiogram for comparison. Procedure Complete-01088. Satisfactory quality. There is sinus bradycardia. Left [...] Procedure Note Edgard Wang MD - 10/31/[address] [place] [address] Echocardiogram Report Name: ADIN SANTOS Study Date: 407:57 AMBP: 106/76 mmHg Patient Location: [id number] : 1940 Height: 163 cm Account: [id number] Age: 83 yrs Weight: 76 kg Gender: Female BSA: 1.8 m2 Ordering Physician: ROSA DEWEY Referring Physician: OMAIRA GIRON Performed By: HAFSA Carmichael Reason For Study: STEMI Interpreting Fellow: Raymond Warren. Exam Location: [facility]. Interpretation Summary -The left [...] is no prior echocardiogram for comparison. Procedure Complete-[id number]. Satisfactory quality. There is sinus bradycardia. Left [...] * (ABNORMAL) Troponin (10/31/2023 8:51 AM EDT) [facility] Troponin-T, High Sensitivity 571(H) <=14 ng/L [facility] Comment: This patient's [...] found in the [facility] Test Catalog Troponin - [facility] Test Catalog Reference: Fourth [place] Definition of Myocardial Infarction. Journal of the [employer] 2018;72:3083-0290 Blood 10/31/2023 8:51 AM EDT 10/31/2023 9:12 AM EDT Narrative Resulting Agency Comment Spec In Lab Rosa Cornejo MD CHEMISTRY ORDERABLE S Performing Organization Address City/State/[facility] Co de Phone Number [facility] [place] [address] * CARDIAC CATHETERIZATION (10/31/2023 8:10 AM EDT) Anatomical Region Laterality Modality Other Narrative 11/07/2023 9:42 AM EDT ?[facility] ? Cardiac Catheterization/Intervention Report ? Patient Name: Adin Santos ? Procedure Date: 10/30/2023 ? A #: [id number] ? Primary Physician: Rosa Dewey I ? Case #: [id number] ? File Name: [id number] ? Catheterization Order Number: [id number] ? [facility] ? Final Report [place], [place] ? Patient Name: ? Adin M. Goguen ?ID#: ?[id number] ? : ?1940 ? Procedure Date: ? [...] was designated as ASA Class III. The [facility] clinical frailty scale ?is 5: Mildly [...] was Emergent. The indication for ?the laborer plumbing visit is ACS less than or equal [...] A premounted 4.00 x 38 mm Andrea [place] (RADHA) was deployed ? with a maximum [...] administered prior to arrival in the laborer plumbing. ?Recommended anti-platelet/anti-thrombotic regimen: ?Continue aspirin 81 mg daily for 12 months then stop. ?Continue clopidogrel 75 mg daily for indefinitely. ?These recommendations are made at the time of the intervention. Patient ?and provider preferences or a changing clinical situation may require ?modification of this regimen. Consult [facility] Interventional [facility]iology for ?questions. ? Conclusions: ?* [...] Dewey M.D. ? Electronically Signed by: Rosa Dweey M.D. ? Report Finalized: 11/07/2023 ??09:36 ? Report Last Ammended: 12/05/2023 ??09:12 ? Procedure Note Rosa Dewey MD - 12/05/2023 [facility] Cardiac Catheterization/Intervention Report Patient Name: Adin Santos Procedure Date: 10/30/2023 A #: [id number] Primary Physician: Rosa Dewey I Case #: [id number] File Name: [id number] Catheterization Order Number: [id number] [facility] FinalReport [place], [place] Patient Name: Adin Santos ID#:[id number] :1940 Procedure Date: October 30, 2023 Case [...] was designated as ASA Class III. The [facility] clinical frailtyscale is 5: Mildly Frail. Diagnostic Tests: Electrocardiography: EKG was assessed by ECG. EKG was Abnormal. EKG showed STDeviation >= 0.5 mm, other abnormality and dynamic EKG changes. Medications Prior to Procedure: Aspirin, Angiotensin II Receptor Rodrick, Beta Rodrick andStatin. Indications for Diagnostic Cath: The priority of the diagnostic procedure was Emergent. Theindication for the laborer plumbing visit is ACS less than or equal [...] The priority for the procedure was Emergent.The [facility] indication for the procedure [...] 16atmospheres. A premounted 4.00 x 38 mm [place] (RADHA) wasdeployed with a maximum inflation pressure [...] administered prior to arrival in the laborer plumbing. Recommended anti-platelet/anti-thrombotic regimen: Continue aspirin 81 mg daily for 12 months then stop. Continue clopidogrel 75 mg daily for indefinitely. These recommendations are made at the time of the intervention.Patient and provider preferences or a changing clinical situation mayrequire modification of this regimen. Consult [facility] Interventional Cardiologyfor questions. Conclusions: * Two vessel [...] was present for the entire procedure. Dr. Roas Dewey M.D. was present during the [...] * (ABNORMAL) Troponin (10/31/2023 4:21 AM EDT) [facility] Troponin-T, High Sensitivity 457(H) <=14 ng/L [facility] Comment: This patient's [...] found in the [facility] Test Catalog Troponin - [facility] Test Catalog Reference: Fourth [place] Definition of Myocardial Infarction. Journal of the [place] [employer] 2018;72:5353-1494 Blood 10/31/2023 4:21 AM EDT 10/31/2023 4:30 AM EDT Narrative Resulting Agency Comment Spec In Lab Rosa Cornejo MD CHEMISTRY ORDERABLE S Performing Organization Address City/State/[facility] Co de Phone Number [facility] [place] [address] * (ABNORMAL) Differential, Automated (10/31/2023 3:05 AM EDT) Neutrophil % 71.7 % [facility] Neutrophil Absolute 8.21(H) 1.70 - 6.10 x10(3)/mc L [facility] Lymph % 16.9 % [facility] Lymphocytes Abs 1.9 0.9 - 3.2 x10(3)/mc L [facility] Monocyte % 9.4 % [facility] Monocyte Abs 1.1(H) 0.3 - 0.9 x10(3)/mc L [facility] Eos % 1.3 % [facility] Eosinophils Abs 0.2 0.0 - 0.4 x10(3)/mc L [facility] Basophil % 0.4 % [facility] Baso Absolute 0.0 0.0 - 0.1 x10(3)/mc L [facility] Immature Gran % 0.30 % [facility] Comment: Immature granulocytes(IG's)percentage and absolute count will include metamyelocytes, myelocytes, and promyelocytes. Blood smears from CBCs yielding IG's will be scanned manually for concordance. If this scan disagrees with the automated IG or if promyelocytes are noted, a manual differential will be performed. Immature Gran Absolute 0.04 0.00 - 0.04 x10(3)/mc L [facility] Blood 10/31/2023 3:05 AM EDT 10/31/2023 3:13 AM EDT Narrative Resulting Agency Comment Spec In Lab Qamar Gallardo MD HEMATOLOGY ORDERABLE S [facility] [place] [address] * (ABNORMAL) Hemogram (10/31/2023 3:05 AM EDT) White Blood Cell 11.5(H) 4.0 - 9.5 x10(3)/ L [facility] Red Blood Cell 3.75(L) 4.00 - 5.21 x10(6)/mc L [facility] Hemoglobin 12.6 11.7 - 15.5 g/dL [facility] Hematocrit 37.1 35.7 - 45.8 % [facility] Mean Cell Volume 98.9(H) 82.6 - 94.4 fL [facility] Mean Cell Hemoglobin 33.6(H) 27.1 - 32.0 pg [facility] Mean Cell Hemoglobin Concentration 34.0 31.7 - 35.0 g/dL [facility] Platelet 206 145 - 357 x10(3)/mc L [facility] RDW Standard Deviation 53.4(H) 37.0 - 46.0 fL [facility] RDW coefficient of variation 14.6(H) 11.5 - 14.1 % [facility] Mean Platelet Volume 11.1 7.6 - 12.9 fL [facility] NRBC% auto 0.0 % [facility] NRBC Absolute 0.000 0.000 - 0.000 x10(3)/mc L [facility] Blood 10/31/2023 3:05 AM EDT 10/31/2023 3:13 AM EDT Narrative Resulting Agency Comment Spec In Lab Qamar Gallardo MD HEMATOLOGY ORDERABLE S Performing Organization Address [facility] Co de Phone Number [facility] [place] [address] * (ABNORMAL) APTT (10/31/2023 3:05 AM EDT) Partial Thromboplastin Time 67(H) 25 - 37 sec [facility] Comment: The PTT is NOT appropriate for heparin monitoring. Use the Anti-Xa level for heparin monitoring (HEP UFH) or LMWH monitoring (HEP LMW). A PTT less than 37 seconds generally indicates adequate hemostasis. Blood 10/31/2023 3:05 AM EDT 10/31/2023 3:13 AM EDT Narrative Resulting Agency Comment Spec In Lab Rosa Cornejo MD HEMATOLOGY ORDERABL ES Performing Organization Address [facility] Co de Phone Number [facility] [place] [address] * (ABNORMAL) Prothrombin Time (10/31/2023 3:05 AM EDT) Prothrombin Time 12.6(H) 9.4 - 12.5 sec [facility] International Normalization Ratio 1.1 [facility] Comment: An INR [...] Lab Rosa Cornejo MD HEMATOLOGY ORDERABL ES [facility] [place] [address] * (ABNORMAL) Differential, Automated (10/31/2023 1:37 AM EDT) Neutrophil % 71.1 % [facility] Neutrophil Absolute 7.53(H) 1.70 - 6.10 x10(3)/mc L [facility] Lymph % 18.0 % [facility] Lymphocytes Abs 1.9 0.9 - 3.2 x10(3)/ L [facility] Monocyte % 8.7 % [facility] Monocyte Abs 0.9 0.3 - 0.9 x10(3)/mc L [facility] Eos % 1.6 % [facility] Eosinophils Abs 0.2 0.0 - 0.4 x10(3)/ L [facility] Basophil % 0.4 % [facility] Baso Absolute 0.0 0.0 - 0.1 x10(3)/mc L [facility] Immature Gran % 0.20 % [facility] Comment: Immature granulocytes(IG's)percentage and absolute count will include metamyelocytes, myelocytes, and promyelocytes. Blood smears from CBCs yielding IG's will be scanned manually for concordance. If this scan disagrees with the automated IG or if promyelocytes are noted, a manual differential will be performed. Immature Gran Absolute 0.02 0.00 - 0.04 x10(3)/mc L [facility] Blood 10/31/2023 1:37 AM EDT 10/31/2023 1:46 AM EDT Narrative Resulting Agency Comment Spec In Lab Qamar Gallardo MD HEMATOLOGY ORDERABLE S [facility] [place] [address] * (ABNORMAL) Hemogram (10/31/2023 1:37 AM EDT) White Blood Cell 10.6(H) 4.0 - 9.5 x10(3)/mc L [facility] Red Blood Cell 3.78(L) 4.00 - 5.21 x10(6)/mc L [facility] Hemoglobin 13.0 11.7 - 15.5 g/dL [facility] Hematocrit 37.9 35.7 - 45.8 % [facility] Mean Cell Volume 100.3(H) 82.6 - 94.4 fL [facility] Mean Cell Hemoglobin 34.4(H) 27.1 - 32.0 pg [facility] Mean Cell Hemoglobin Concentration 34.3 31.7 - 35.0 g/dL [facility] Platelet 204 145 - 357 x10(3)/mc L [facility] RDW Standard Deviation 54.3(H) 37.0 - 46.0 fL [facility] RDW coefficient of variation 14.6(H) 11.5 - 14.1 % [facility] Mean Platelet Volume 11.1 7.6 - 12.9 fL [facility] NRBC% auto 0.0 % [facility] NRBC Absolute 0.000 0.000 - 0.000 x10(3)/mc L [facility] Blood 10/31/2023 1:37 AM EDT 10/31/2023 1:46 AM EDT Narrative Resulting Agency Comment Spec In Lab Qamar Gallardo MD HEMATOLOGY ORDERABLE S [facility] [place] [address] * Phosphorus (10/31/2023 1:37 AM EDT) Phosphorus 3.2 2.5 - 4.5 mg/dL [facility] Blood 10/31/2023 1:37 AM EDT 10/31/2023 1:46 AM EDT Narrative Resulting Agency Comment Spec In Lab Rosa Cornejo MD CHEMISTRY ORDERABLE S Performing Organization Address City/[facility]/ZIP Co de Phone Number [facility] [place] [address] * Magnesium (10/31/2023 1:37 AM EDT) Magnesium 0.83 0.69 - 1.07 mmol/L [facility] Blood 10/31/2023 1:37 AM EDT 10/31/2023 1:46 AM EDT Narrative Resulting Agency Comment Spec In Lab Rosa Cornejo MD CHEMISTRY ORDERABLE S [facility] [place] [address] * Basic Metabolic Panel (non-fasting) (10/31/2023 1:37 AM EDT) Glucose 114 65 - 199 mg/dL [facility] Comment:Diabetes: >=200 mg/d L plus symptoms Blood Urea Nitrogen 13 8 - 18 mg/dL [facility] Creatinine 0.81 0.70 - 1.20 mg/dL [facility] Sodium 140 135 - 145 mmol/L [facility] Potassium 3.9 3.5 - 5.0 mmol/L [facility] Comment: Please note: ??Patients with WBC >100,000 may have falsely elevated Potassium levels. ??For accurate Potassium quantification in these patients send serum separator tube (gold top) for subsequent determinations. ??Contact the Clinical Chemistry Laboratory if there are any questions. Chloride 107 98 - 107 mmol/L [facility] Carbon Dioxide 25 22 - 31 mmol/L [facility] Anion Gap 8 5 - 15 mmol/L [facility] Calcium 8.6 8.5 - 10.5 mg/dL [facility] Est Glomerular Filtration Rate 72 >=60 mL/min/1. 73 m?? [facility] Comment: This patient's [...] Lab Rosa Cornejo MD CHEMISTRY ORDERABLE S [facility] [place] [address] * (ABNORMAL) Troponin (10/31/2023 1:37 AM EDT) Troponin-T, High Sensitivity 329(H) <=14 ng/L [facility] Comment: This patient's [...] found in the [facility] Test Catalog Troponin - [facility] Test Catalog Reference: Fourth [place] Definition of Myocardial Infarction. Journal of the [place] [employer] 2018;72:8266-6908 Blood 10/31/2023 1:37 AM EDT 10/31/2023 1:46 AM EDT Narrative Resulting Agency Comment Spec In Lab Rosa Cornejo MD CHEMISTRY ORDERABLE S Performing Organization Address City/[facility]/[place] [address] * EKG 12 Lead (10/31/2023 1:20 AM EDT) Ventricular rate 52 BPM MUSE SYSTEM Atrial Rate 52 BPM MUSE SYSTEM P-R Interval 224 ms MUSE SYSTEM QRS Duration 108 ms MUSE SYSTEM Q-T Interval 544 ms MUSE SYSTEM QTC Calculated (Bezet) 505 ms MUSE SYSTEM Calculated P [place] 90 degrees MUSE SYSTEM Calculated R [place] -57 degrees MUSE SYSTEM Calculated T [place] -63 degrees MUSE SYSTEM INTERPRETATION Sinus bradycardia with 1st degree A-V block Pulmonary disease pattern Left anterior fascicular block Moderate voltage criteria for LVH, may be normal variant ( R in aVL , Mathews product ) T wave abnormality, consider inferior [...] (Bezet) 497 ms MUSE SYSTEM Calculated P [place] 75 degrees MUSE SYSTEM Calculated R [place] -53 degrees MUSE SYSTEM Calculated T [place] -57 degrees MUSE SYSTEM INTERPRETATION Sinus bradycardia [...] View (10/30/2023 10:10 PM EDT) WORKSTATION ID [id number] RAD Anatomical Region Laterality Modality Chest N/A Digital Radiogra phy Impressions 10/30/2023 10:32 PM EDT 1. ??Examination limited by low lung volumes. 2. ??Findings suggesting pulmonary vascular congestion with possible mild interstitial edema. 3. ??Known ascending aortic aneurysm, as seen on recent CT. 4. ??Nonspecific widening mediastinum. This can be secondary to magnification from portable technique and low lung volumes. Findings similar to customer success advocate radiograph from CT 10/30/2023. Thank you for letting us participate in the care of this patient. ??If you are a health care provider and have any questions regarding this report, please contact the number below. ??For patients who have questions please contact the health career and technology education teacher that requested your imaging first. ? Electronically signed by: Wilson Mccartney MD, [facility] ([phone]), at 10/30/2023 10:32 PM Narrative 10/30/2023 10:32 [...] and low lung volumes. Findings similar to customer success advocate radiograph from CT 10/30/2023. Thank you for letting us participate in the care of this patient. If youare a health care provider and have any questions regarding this report,please contact the number below. For patients who have questions please contactthe health career and technology education teacher that requested your imaging first. Electronically signed by: Wilson Mccartney MD, [facility]([phone]), at 10/30/2023 10:32 PM Rosa Cornejo MD IMG DX ORDERABLES * Green Tube HOLD (10/30/2023 10:05 PM EDT) [facility] Green Hold Sample in lab. [facility] Blood Venous Draw / Unknown 10/30/2023 10:05 PM EDT 10/30/2023 10:13 PM EDT Qamar Gallardo MD CHEMISTRY ORDERABLES [facility] [place] [address] * (ABNORMAL) Differential, Automated (10/30/2023 10:05 PM EDT) Neutrophil % 76.6 % [facility] Neutrophil Absolute 6.94(H) 1.70 - 6.10 x10(3)/mc L [facility] Lymph % 15.4 % [facility] Lymphocytes Abs 1.4 0.9 - 3.2 x10(3)/mc L [facility] Monocyte % 6.1 % [facility] Monocyte Abs 0.6 0.3 - 0.9 x10(3)/mc L [facility] Eos % 1.1 % [facility] Eosinophils Abs 0.1 0.0 - 0.4 x10(3)/mc L [facility] Basophil % 0.6 % [facility] Baso Absolute 0.0 0.0 - 0.1 x10(3)/mc L [facility] Immature Gran % 0.20 % [facility] Comment: Immature granulocytes(IG's)percentage and absolute count will include metamyelocytes, myelocytes, and promyelocytes. Blood smears from CBCs yielding IG's will be scanned manually for concordance. If this scan disagrees with the automated IG or if promyelocytes are noted, a manual differential will be performed. Immature Gran Absolute 0.02 0.00 - 0.04 x10(3)/mc L [facility] Blood 10/30/2023 10:0 5 PM EDT 10/30/2023 10:12 PM EDT Narrative Resulting Agency Comment Spec In Lab Qamar Gallardo MD HEMATOLOGY ORDERABLE S Performing Organization Address City/State/[facility] Co de Phone Number [facility] [place] [address] * (ABNORMAL) Hemogram (10/30/2023 10:05 PM EDT) White Blood Cell 9.0 4.0 - 9.5 x10(3)/mc L [facility] Red Blood Cell 3.96(L) 4.00 - 5.21 x10(6)/mc L [facility] Hemoglobin 13.3 11.7 - 15.5 g/dL [facility] Hematocrit 39.1 35.7 - 45.8 % [facility] Mean Cell Volume 98.7(H) 82.6 - 94.4 fL [facility] Mean Cell Hemoglobin 33.6(H) 27.1 - 32.0 pg [facility] Mean Cell Hemoglobin Concentration 34.0 31.7 - 35.0 g/dL [facility] Platelet 211 145 - 357 x10(3)/mc L [facility] RDW Standard Deviation 53.6(H) 37.0 - 46.0 fL [facility] RDW coefficient of variation 14.6(H) 11.5 - 14.1 % [facility] Mean Platelet Volume 11.1 7.6 - 12.9 [facility] NRBC% auto 0.0 % [facility] NRBC Absolute 0.000 0.000 - 0.000 x10(3)/mc L [facility] Blood 10/30/2023 10:0 5 PM EDT 10/30/2023 10:12 PM EDT Narrative Resulting Agency Comment Spec In Lab Qamar Gallardo MD HEMATOLOGY ORDERABLE S Performing Organization Address City/[facility]/ZIP Co de Phone Number [facility] [place] [address] * Hemoglobin A1c (10/30/2023 10:05 PM EDT) Hemoglobin A1c 5.5 4.3 - 5.6 % [facility] Comment: Reference Range: [...] [id number] Estimated Average Glucose See note mg/dL [facility] Comment: Estimated Average Glucose not appropriate for patients over 70 years of age. Blood 10/30/2023 10:0 5 PM EDT 10/30/2023 10:12 PM EDT Narrative Resulting Agency Comment Spec In Lab Rosa Cornejo MD CHEMISTRY ORDERABLE S [facility] [place] [address] * Lipid Panel (Reflex Direct LDL) (10/30/2023 10:05 PM EDT) [facility] Signature Cholesterol, Total 218 mg/dL [facility] Comment: Desirable: ? <200 mg/dL Borderline High: 200-239 mg/dL Higher: ?>on=685 mg/dL Triglyceride 46 mg/dL [facility] Comment: Normal: ?<150 mg/dL Borderline High: 150-199 mg/dL High: ?200-499 mg/dL Very High: ? >uq=942 mg/dL HDL Cholesterol 64 mg/dL [facility] Comment: Females: High Risk: <50 mg/dL Males: High Risk: <40 mg/dL LDL Cholesterol 145 mg/dL [facility] Comment: Desirable: ? <100 mg/dL Above Desirable: 100-129 mg/dL Borderline High: 130-159 mg/dL High: ?160-189 mg/dL Very High: ? >tx=522 mg/dL Lipid Interpretation See Note [facility] Comment: It is [...] ACC/AHA Guidelines (most recently Feliciano et al. JAC 03/23/22): For individuals with atherosclerotic cardiovascular disease (ASCVD)or LDL >of=570 mg/dL, use a high-intensity statin (40-80 mg [...] Organization Address City/[facility] Co de Phone Number [facility] [place] [address] * TSH [place] (10/30/2023 10:05 PM EDT) Thyroid Stimulating Hormone 3.35 0.27 - 4.20 mcIU/mL [facility] Comment: Reference Interval (mcIU/mL): Females: ??First Trimester: 0.23-3.88 ??Second Trimester: 0.22-3.90 ??Third Trimester: 0.44-4.66 Blood 10/30/2023 10:0 5 PM EDT 10/30/2023 10:12 PM EDT Narrative Resulting Agency Comment Spec In Lab Rosa Cornejo MD CHEMISTRY ORDERABLE S Performing Organization Address City/[facility]/ZIP Co de Phone Number [facility] [place] [address] * pro-Brain Natriuretic Peptide (10/30/2023 10:05 PM EDT) NT-proBNP 375 <=449 pg/mL [facility] Blood 10/30/2023 10:0 5 PM EDT 10/30/2023 10:12 PM EDT Narrative Resulting Agency Comment Spec In Lab Rosa Cornejo MD CHEMISTRY ORDERABLE S [facility] [place] [address] * (ABNORMAL) Comprehensive metabolic panel (non-fasting) (10/30/2023 10:05 PM EDT) Pathologist [facility] Glucose 121 65 - 199 mg/dL [facility] Comment:Diabetes: >=200 mg/d L plus symptoms Blood Urea Nitrogen 14 8 - 18 mg/dL [facility] Creatinine 0.85 0.70 - 1.20 mg/dL [facility] Sodium 142 135 - 145 mmol/L [facility] Potassium 3.9 3.5 - 5.0 mmol/L [facility] Comment: Please note: ??Patients with WBC >100,000 may have falsely elevated Potassium levels. ??For accurate Potassium quantification in these patients send serum separator tube (gold top) for subsequent determinations. ??Contact the Clinical Chemistry Laboratory if there are any questions. Chloride 105 98 - 107 mmol/L [facility] Carbon Dioxide 27 22 - 31 mmol/L [facility] Anion Gap 10 5 - 15 mmol/L [facility] Calcium 8.8 8.5 - 10.5 mg/dL [facility] Protein, Total 6.5 6.1 - 8.0 g/dL [facility] Albumin 4.2 3.2 - 5.2 g/dL [facility] Aspartate Aminotransferase 36(H) 0 - 30 unit/L [facility] Alanine Aminotransferase 17 0 - 30 unit/L [facility] Alkaline Phosphatase 54 35 - 105 unit/L [facility] Bilirubin, Total 0.5 0.2 - 1.3 mg/dL [facility] Est Glomerular Filtration Rate 68 >=60 mL/min/1. 73 m?? [facility] Comment: This patient's [...] Organization Address City/[facility]/ZIP Co de Phone Number [facility] [place] [address] * Phosphorus (10/30/2023 10:05 PM EDT) Phosphorus 3.3 2.5 - 4.5 mg/dL [facility] Blood 10/30/2023 10:0 5 PM EDT 10/30/2023 10:12 PM EDT Narrative Resulting Agency Comment Spec In Lab Rosa Cornejo MD CHEMISTRY ORDERABLE S [facility] [place] [address] * Magnesium (10/30/2023 10:05 PM EDT) Magnesium 0.86 0.69 - 1.07 mmol/L [facility] Blood 10/30/2023 10:0 5 PM EDT 10/30/2023 10:12 PM EDT Narrative Resulting Agency Comment Spec In Lab Rosa Cornejo MD CHEMISTRY ORDERABLE S Performing Organization Address [facility]/ZIP Co de Phone Number [facility] [place] [address] * (ABNORMAL) Troponin (10/30/2023 10:05 PM EDT) Troponin-T, High Sensitivity 214(H) <=14 ng/L [facility] Comment: This patient's [...] found in the [facility] Test Catalog Troponin - [facility] Test Catalog Reference: Fourth [place] Definition of Myocardial Infarction. Journal of the [place] [employer] 2018;72:6412-1021 Blood 10/30/2023 10:0 5 PM EDT 10/30/2023 10:12 PM EDT Narrative Resulting Agency Comment Spec In Lab Rosa Cornejo MD CHEMISTRY ORDERABLE S Performing Organization Address City/[facility]/ZIP Co de Phone Number [facility] [place] [address] * EKG 12 Lead (10/30/2023 8:21 PM EDT) Ventricular rate 49 BPM MUSE SYSTEM Atrial Rate 49 BPM MUSE SYSTEM P-R Interval 230 ms MUSE SYSTEM QRS Duration 96 ms MUSE SYSTEM Q-T Interval 526 ms MUSE SYSTEM QTC Calculated (Bezet) 475 ms MUSE SYSTEM Calculated P [place] 98 degrees MUSE SYSTEM Calculated R [place] -48 degrees MUSE SYSTEM Calculated T [place] -51 degrees MUSE SYSTEM INTERPRETATION Sinus bradycardia with 1st degree A-V block Incomplete right bundle branch block Left anterior fascicular block Moderate voltage criteria for LVH, may be normal variant ( R in aVL , Mathews product ) T wave abnormality, consider inferior [...] Sweeney, TANESHA) 0816 (Given - Provider: Lucretia Thurman RN) [...] for fem site)2200 (Hold - Provider: Danica Sihpley RN - Reason: See comment - Comment: [...] Shipley RN)1435 (Patch Applied - Provider: Moshe oPpe RN)1713 (Due: Patch Removed - Provider: Automatic [...] TANESHA)1350 (New Bag - Provider: Lolly Leblanc, TNAESHA)1659 (Stopped - Provider: Mary Sweeney, TANESHA)1700 (New [...] area)1548 (AUG Unhold - Provider: Admin Adt) fentaNYL (pf) [...] - Reason: Transfer to a Procedural area)1548 ([facility] Unhold - Provider: Admin Adt) midazolam [...] provided on this medication record., Routine 1333 ([facility] Hold - Provider: Admin Adt - Reason: Transfer to a Procedural area)1548 ([facility] Unhold - Provider: Admin Adt) documented in this encounter Additional Health Concerns Infection Onset Date Last Indicated Resolved Time Rule Out Respiratory 11/02/2023 11/02/2023 024 12:22 PM EDT Rule Out COVID-19 11/02/2023 11/02/2023 11/02/2023 12:22 PM EDT documented as of this encounter Care Teams Job Interviewer Relationship Specialty Start Date End Date Rosie Mathews MD [address] [place] [id number] PCP - General Family Medicine 11/25/17 11/23/23 documented as of this encounter
--- OUTSIDE RECORDS SUMMARY | 2024-04-18 13:55 | XMS_ITS | Encounter Summary ---
Author Organization [facility] Address [facility] [place] [address] Care Team Providers Care Woodwind Instruments Inspector Name Role Phone Rosie Mathews MD Primary Care Provider [phone] Encounter Details Date Type Department Care Team (Late st Contact Info) Description 10/30/2023 External Results Transfer Center [facility] [place] [address] Social History Tobacco Use Types Packs/Day Years Used Date Smoking Tobacco: Former Smokeless Tobacco: Never Alcohol Use Standard Drinks/Week Comments Not Currently 0 (1 standard drink = 0.6 oz pur e alcohol) [facility] Utilities Answer Date Recorded In the past 12 months has e [employer], gas, oil, or water Car reviews threatened to shut off services in your [...] 11:00 AM EDT Office Visit Cardiology at [address] [address] Izaiah Meyer MD [facility] [place] [address] documented as of this encounter Procedures Procedure [...] on filedocumented in this encounter Care Teams Woodwind Instruments Inspector Relationship Specialty Start Date End Date Rosie Mathews MD [address] [place] [address] PCP - General Family Medicine 11/25/17 11/23/23 documented as of this encounter
--- OUTSIDE RECORDS SUMMARY | 2024-04-18 13:55 | XMS_ITS | Encounter Summary ---
Author Organization [facility] [place] [address] Care Team Providers Care [place] Name Role Phone Rosie Mathews MD Primary Care Provider [phone] Reason for Visit * Auth/Cert (Routine) Specialty Diagnoses / Procedures Referred By Contac t Referred To Contact Diagnoses Unstable angina Procedures [employer] [facility] Referral ID Status Reason Start Date Expiration Date Visits Re quested Visits Authorized [id number] 1 1 Encounter Details Date Type Department Care Team (Latest Contact Info) Description 10/30/2023 5:00 PM EDT - 10/30/2023 5:10 PM EDT Hospital [place] [phone] Rosa Menjivar MD [facility] [place] [address] Discharge Disposition: Home Social History Tobacco Use Types Packs/Day Years Used Date Smoking Tobacco: Former Smokeless Tobacco: Never Alcohol Use Standard Drinks/Week Comments Not Currently 0 (1 standard drink = 0.6 oz pur e alcohol) [facility] Inpatient Questions Answer Date Recorded Does [...] 11:00 AM EDT Office Visit Cardiology at [address] [place] [address] Izaiah Meyer MD [facility] [place] [address] documented as of this encounter Visit Diagnoses Not on filedocumented in this encounter Care Teams [place] Relationship Specialty Start Date End Date Rosie Mathews MD [address] [place] [address] PCP - General Family Medicine 11/25/17 11/23/23 documented as of this encounter
--- OUTSIDE RECORDS SUMMARY | 2024-04-18 13:56 | XMS_ITS | Referral Summary ---
Author Organization [facility] Address [address] [place] [address] Care Team Providers Care Nurse Intern Name Role Phone Unavailable Primary Care Provider Unavailabl e Allergies Active Allergy Reactions Criticality Noted Date [...]
--- OUTSIDE RECORDS SUMMARY | 2024-04-18 13:56 | XMS_ITS | Encounter Summary ---
Author Organization [facility] Address [address] [place] [address] Care Team Providers Care Litigation Assistant Name Role Phone Unavailable Primary Care Provider Unavailabl e Encounter Details Date Type Department Care Team (Late st Contact Info) Description 01/10/2008 Before PRISM Converted Visit (Maple) [facility] - Maple conversion [address] [place] [address] Ray Farooq MD [address] [place] [phone] Social History Tobacco Use Types Packs/Day Years Used Date Smoking Tobacco: Never Assessed Sex and Gender Information Value Date Recorded Sex Assigned at Not on file Gender Identity Not on file Sexual Orientation Not on file documented as of this encounter Consult Notes * Ray Farooq MD - 03/21/2009 0767 EDT [facility] - 01/10/2008 Kirsten Bateman MD [facility] [address] [place] [address] Bateman: Chief complaint: Hearing loss. History of present illness: Phneq-pyfpq-dvrd-old female with along history of bilateral hearing [...] is a nonsmoker, nondrinker. She lives in [place]. Review of systems is significant for allergies, [...] Tosin Farooq MD - MLD Job ID: [id number] Doc ID: [id number] cc: Kirsten Bateman MD cc: Kirsten Bateman MD documented in this encounter Plan of Treatment Not on file documented as of this encounter Visit Diagnoses Not on filedocumented in this encounter
--- OUTSIDE RECORDS SUMMARY | 2024-04-18 13:56 | XMS_ITS | Encounter Summary ---
Author Organization [facility] Address [address] [place] [address] Care Team Providers Care Electrical Engineering Designer Name Role Phone Unavailable Primary Care Provider Unavailabl e Encounter Details Date Type Department Care Team (Late st Contact Info) Description 01/27/[address] [facility] Pathology & Laboratory Medicine - [facility] [address] [place] [address] Outr Resulting Lab, Provider Social History Tobacco [...] Outr Resulting Lab MICROBIOLOGY - GENERAL ORDERABLES [facility] [address] [place] [address] * COVID-19 TESTING (01/26/2021 16:45 EDT) COVID-19 rt-PCR Result Negative Negative 01/28/2021 13:31 EDT [facility] Comment: This test [...] testing. This test is based on the [facility] COVID-19 Emergency Use Authorization (EUA) assay, with minor modification as defined by the FDA Performed on the My [employer] 7 Pro RT-PCR System. Performing Lab [facility] Lab 01/28/2021 13:31 EDT [facility] Swab 01/26/2021 16:4 5 EDT 01/27/2021 15:46 EDT Provider Outr Resulting Lab MICROBIOLOGY - GENERAL ORDERABLES [facility] [address] [place] [address] documented in this encounter Visit Diagnoses Not on filedocumented in this encounter
--- OUTSIDE RECORDS SUMMARY | 2024-04-18 13:56 | XMS_ITS | Clinical Summary ---
Author Organization [facility] Address [address] [place] [address] Care Team Providers Care Shot Peen Operator Name Role Phone Unavailable Primary Care [...] 1999 Fall Risk Screening 2004 COVID-19 Vaccine (2023- season) 2024
--- OUTSIDE RECORDS SUMMARY | 2024-04-18 13:56 | XMS_ITS | Encounter Summary ---
Author Organization [facility] Address [address] [place] [address] Care Team Providers Care Java Tech Name Role Phone Unavailable Primary Care Provider Unavailabl e Reason for Visit * Reason Comments Hearing Loss tinnitus Encounter Details Date Type Department Care Team (Latest Contact Info) Description 01/15/2010 10:10 EDT Office Visit [facility] ENT [address] [address] Unknown, MD Mayank Ray Farooq MD [address] [place] [address] [phone] Sensorineural hearing loss, bilateral; Subjective [...] Ray Farooq MD - 01/28/2010 1108 EDT [facility] PROGRESS/FOLLOWUP NOTE - 01/15/2010 CHIEF COMPLAINT: [...] – [place] Job ID: SM Doc ID: [id number] Ext Doc ID: [id number] cc: Kirsten Bateman MD * Ray Faoroq MD - 01/15/2010 1017 EDT This office note has been dictated. documented in this encounter Miscellaneous Notes * Scanned Note-Null - Inpatient, Physician - 01/16/2010 1648 EDT documented in this encounter Plan of Treatment Not on file documented as of this encounter Visit Diagnoses Diagnosis Sensorineural hearing loss, bilateral Subjective tinnitus documented in this encounter
--- OUTSIDE RECORDS SUMMARY | 2024-04-18 13:56 | XMS_ITS | Encounter Summary ---
Author Organization [facility] Address [address] [place] [address] Care Team Providers Care Adaptive Physical Educator Name Role Phone Unavailable Primary Care Provider Unavailabl e Encounter Details Date Type Department Care Team (Late st Contact Info) Description 01/14/2010 Abstract Used for ABSTRACTING Data [phone] Kirsten Bateman MD Social History Tobacco Use Types Packs/Day Years [...] OIL/COCONUT OIL (FATTY ACID BASE MISC) [facility]Non-Drug; Combo Route) route. EPA CYANOCOBALAMIN (VITAMIN B-12 ORAL) Take by mouth. ASCORBIC ACID (VITAMIN C ORAL) Take by mouth. VITAMIN E ACETATE (VITAMIN E ORAL) Take by mouth. ASPIRIN ORAL Take by mouth. AMITRIPTYLINE HCL (AMITRIPTYLINE ORAL) Take by mouth. ATENOLOL ORAL Take by mouth. SIMVASTATIN ORAL Take by mouth. added in this encounter
--- NOTE | 2024-04-18 14:48 | ED.GENADUL_ITS ---
Discharge Plan Disposition Patient Disposition: Home Condition: Stable Discharge Details Clinical Impression: Headache, Dizziness, Bradycardia Primary Care Provider: Masood Pierson ED Provider: Pravin Rosa Home Meds and New Rx's Prescriptions: Continued ascorbate calcium (vitamin C) 500 MG tablet 1 tab PO DAILY aspirin 81 MG tablet,chewable 1 tab PO DAILY vitamin B complex [B-Complex] 1 EACH tablet 1 tab PO DAILY clopidogrel 75 mg tablet 75 mg PO DAILY nitroglycerin 0.4 mg tablet, sublingual 0.4 mg sublingual Q5M losartan 50 mg tablet 50 mg PO DAILY Patient Comments: TAKE ONE TABLET BY MOUTH EVERY DAY oxybutynin chloride 5 mg tablet 5 mg PO DAILY Patient Comments: TAKE ONE TABLET BY MOUTH AT BEDTIME NEEDED atorvastatin 80 mg tablet 80 mg PO DAILY spironolactone 25 mg tablet 25 mg PO DAILY metoprolol succinate 25 mg tablet extended release 24 hr 12.5 mg PO DAILY Discharge Instructions Instructions: Bradycardia, Headache, Adult ED, Dizziness, Adult ED Additional Instructions: Please contact your primary care physician to arrange follow-up. Call today. Please follow-up with your silk conditioner regarding bradycardia. Return to the ER immediately for any worsening or new concerning symptoms. Referrals: Masood Pierson MD [Primary Care Provider] - Discharge Data Discharge Date/Time-TO BE ENTERED AT DEPARTURE: 04/18/24 15:03 HPI General Mode of arrival: ambulatory . Date/Time Provider Initiated Documentation: 04/18/24 13:53 . Limitations to Documentation: no limitations . Information obtained by: patient and family . HPI Narrative: 83-year-old female presents from pain clinic today with chief complaint of headache. Patient notes she was on her way into clinic and experienced some dyspnea on exertion, lightheadedness and then a headache which has since resolved. Patient relayed concerns to pain clinic staff who performed EKG. Patient was sent here for evaluation given symptoms and bradycardia. Patient has no complaints at this time. She specifically denies chest pain or shortness of breath. She has no continued headache. Related Data Home Medications ?Medication ?Instructions ?Recorded ?Confirmed ascorbate calcium (vitamin C) 500 1 tab PO DAILY 11/25/14 04/24/24 mg tablet aspirin 81 mg chewable tablet 1 tab PO DAILY 11/25/14 04/24/24 vitamin B complex (B-Complex 1 tab PO DAILY 11/25/14 04/24/24 tablet) losartan 50 mg tablet 50 mg PO DAILY 02/12/22 04/24/24 oxybutynin chloride 5 mg tablet 5 mg PO DAILY 02/12/22 04/24/24 clopidogrel 75 mg tablet 75 mg PO DAILY 11/18/23 04/24/24 nitroglycerin 0.4 mg sublingual 0.4 mg sublingual Q5M 11/18/23 04/24/24 tablet atorvastatin 80 mg tablet 80 mg PO DAILY 02/24/24 04/24/24 metoprolol succinate 25 mg 12.5 mg PO DAILY 02/24/24 04/26/24 tablet,extended release 24 hr spironolactone 25 mg tablet 25 mg PO DAILY 02/24/24 04/24/24 Allergies Allergy/AdvReac Type Severity Reaction Status Date / Time hydrocodone Allergy Intermediate Itching Unverified 04/24/24 17:14 oxycodone HCl (From Percocet) Allergy Intermediate Itching Unverified 04/24/24 17:14 prednisone Allergy Intermediate Swelling/Ed Unverified 04/24/24 17:14 acosta lisinopril Allergy Mild Other (See Verified 04/24/24 17:14 Comment) General Stated Complaint: Dizzy/Sync BRADLEY: 3 Review of Systems All systems reviewed & are unremarkable except as noted in HPI and below Constitutional Constitutional: Denies fever(s) and Denies weakness Eyes Eyes: Denies loss of vision ENT Ears, Nose, Mouth, and Throat: Denies vertigo Cardiovascular Cardiovascular: Reports as per HPI, Denies chest pain, Denies rapid heart rate, Reports lightheadedness and Denies dyspnea Respiratory Respiratory: Reports as per HPI and Denies dyspnea Musculoskeletal Musculoskeletal: Denies abnormal gait and Denies numbness Neurologic Neurologic: Reports as per HPI, Denies abnormal speech, Denies abnormal gait, Denies confusion, Denies vertigo, Denies localized weakness, Denies loss of vision, Denies memory loss, Denies numbness, Denies convulsions, Denies sensory deficit and Denies weakness Psychiatric Psychiatric: Denies confusion and Denies memory loss Exam Const General: cooperative and no acute distress HENMT Mouth: moist mucous membranes Eyes Conjunctivae: normal conjunctivae Sclera: normal sclerae Neck Neck: trachea midline and supple Resp Auscultation: clear to auscultation bilaterally, no rales, no rhonchi and no wheezes Cardio Rate: regular rate and not tachycardic Rhythm: regular rhythm Heart Sounds: murmur systolic II/ GI Palpation: soft, not firm, no guarding, no masses, not rigid and nontender Skin General skin exam: no rashes or lesions noted Neuro General: patient alert, patient awake, patient oriented x3 and tone normal Cranial Nerves: CN's II-XI intact bilaterally Cognition: normal cognition Speech: speech normal Gait: normal gait Motor: muscle tone normal throughout and strength 5/5 throughout Sensory Exam: no sensory deficits noted Extrem General: no edema Psych Appearance: grossly normal Mental Status: mental status grossly normal Speech and Movement: speech and movement normal Course Vital Signs Vital signs: Vital Signs Temperature 36.6 C 04/18/24 13:52 Pulse 51 L 04/18/24 13:52 Respiratory Rate 15 04/18/24 13:52 Blood Pressure 135/71 04/18/24 13:52 Pulse Oximetry 95 04/18/24 13:52 Temperature 36.6 C 04/18/24 13:52 Pulse 51 L 04/18/24 13:52 Respiratory Rate 15 04/18/24 13:52 Respiratory Effort Normal 04/18/24 13:56 Blood Pressure 135/71 04/18/24 13:52 Blood Pressure Position Sitting 04/18/24 13:52 Pulse Oximetry 95 04/18/24 13:52 Oxygen Delivery Method Room Air 04/18/24 13:52 Oxygen Flow Rate 0 04/18/24 13:52 Medical Decision Making 83-year-old female with history of coronary artery disease, hypertension, on beta-kristy, presents from pain clinic with concern for lightheadedness, dyspnea on exertion and headache that occurred while she was coming to clinic today. Symptoms have since resolved. She has no complaints at this time. Discussed differential diagnosis with the patient. Patient provided informed refusal of additional diagnostic workup. Screening EKG was reviewed interpreted by me: Please report, first-degree AV block with bradycardia. Plan for discharge with outpatient follow-up. Patient was instructed to rest over the next few days. Disposition decision was made weighing the risks and benefits of hospitalization versus outpatient treatment, the risk for further decompensation, and the patient's wishes. The patient was stable and requested discharge. Prior to discharge, my usual and customary return precautions were reviewed with the patient - this included follow-up instructions and reason to return to the emergency department if condition worsens, does not improve as expected, or other new concerns arise. Patient verbalized understanding of return precautions and need for timely follow-up with PCP. Lab Data Lab results reviewed: Yes I reviewed the patient's lab results. ECG Data Attestation: I personally reviewed and interpreted this ECG (s) as follows: (Sinus bradycardia...rate< 60 Prolonged NC interval...NC >220, V-rate 50- 90 Incomplete RBBB and LAFB...axis(240,-40), S>R II III aVF Left ventricular hypertrophy...multiple voltage criteria Anterior infarct, old...Q >40mS, abnormal ST-T, V2-V5) Prior ECG tracings: available for review Quality:SDOH Health Related Social Needs: Health related social needs details pt reports she has nt been sick in 2- years. reports [place] [facility] [place] felt she caught a cold. PFSH All Active Problems (Updated 04/24/24 @ 23:30 by Mike Nicholson) Hypertension (Chronic) Bradycardia (Chronic) Dizziness (Acute) Headache (Acute) Mechanical low back pain (Acute) Spinal stenosis of lumbar region (Acute) Lumbar spondylosis (Acute) Tachyarrhythmia (Acute) Tinnitus, bilateral (Acute) Sensorineural hearing loss of both ears (Acute) Medical History Neck pain First degree AV block Stress incontinence Hyperlipidemia Hematemesis Piriformis syndrome Hypertension Aortic arch aneurysm CAD (coronary artery disease), [place] coronary artery Surgical History History of rotator cuff surgery S/P KALLI-BSO Family History Mother Hypertension Stroke Heart disease Social History Smoking/Tobacco Use Status: Former Tobacco Use Smoking risk assessment performed?: Yes Alcohol Intake: never Drug use: Never Substance use type: does not use Housing: apartment Do you feel safe at home: Yes Do you feel safe in your relationship?: Yes
[2024-04-18 15:00] VITALS: BP 146/73; PULSE 53; RESP 16; O2SAT 95
== END 2024-04-18 15:03 | disposition home or self-care (01) ==
PROVIDERS: Emergency Provider Student in an Organized Health Care Education/Training Program; PCP Family Medicine
DX: I45.2 Bifascicular block (principal); I25.10 Atherosclerotic heart disease of native coronary artery without angina pectoris; E78.5 Hyperlipidemia, unspecified; I10 Essential (primary) hypertension; Z79.02 Long term (current) use of antithrombotics/antiplatelets; Z79.82 Long term (current) use of aspirin; Z87.891 Personal history of nicotine dependence; R51.9 Headache, unspecified; R42 Dizziness and giddiness
CPT/HCPCS: 93005; 99284; 93010; 99283

== ENCOUNTER 2024-04-24 17:08 | Observation (INO) | payer OTHER, SELFPAY ==
[2024-04-24] VITALS (18 sets, daily range): BP systolic 148–221; BP diastolic 55–192; PULSE 45–108; RESP 12–22; TEMP 36.2–36.8; O2SAT 85–98
--- NOTE | 2024-04-24 17:00 | RT.EKG_ITS ---
APPROVED REPORT Exam: Resting ECG Reason for Exam: High BP and HR Patient Location: E HR:44 bpm ECG Measurements Heart Rate 44 AXIS VT 226 P 10 QRSd 102 QRS -39 QT 448 T 14 QTc 383 Conclusion Sinus bradycardia 44 normal axis no stmi
--- OUTSIDE RECORDS SUMMARY | 2024-04-24 17:18 | XMS_ITS | Encounter Summary ---
Author Organization [facility] Address [facility] [place] [address] Care Team Providers Care Car Lubricator Name Role Phone Masood Pierson MD Primary Care Provider [phone] Reason for Visit * Reason Comments Medication Refill Encounter Details Date Type Department Care Team (Late st Contact Info) Description 04/06/2024 [place]ill [place] [address] Emile Robles MD [facility] [place] [address] Social History Tobacco Use Types Packs/Day Years Used Date Smoking Tobacco: Former Smokeless Tobacco: Never Alcohol Use Standard Drinks/Week Comments Not Currently 0 (1 standard drink = 0.6 oz pur e alcohol) [facility] Utilities Answer Date Recorded In the past 12 months has [employer] electric, gas, oil, or water company threatened [...] 11:00 AM EDT Office Visit Cardiology at [address] [phone] Izaiah Meyer MD [facility] [place] [address] documented as of this encounter Visit Diagnoses Not on filedocumented in this encounter Care Teams Car Lubricator Relationship Specialty Start Date End Date Masood Pierson MD [address] [place] [address] PCP - General Family Medicine 11/24/23 documented as of this encounter
--- OUTSIDE RECORDS SUMMARY | 2024-04-24 17:18 | XMS_ITS | Clinical Summary ---
Author Organization [facility] Address [facility] [place] [address] Care Team Providers Care Medical Instrument Technician Name Role Phone Masood Pierson MD Primary Care Provider [phone] Allergies Active Allergy Reactions Criticality Noted Date [...] Prox 60 Mid 80 3.5 x 15 [place] 3.5 x 15 [place] RCA Mid AoCTO. Collats from Cx 4.0 [...] Team Description 04/06/2024 Refill [place] [phone] Emile Robles MD 03/29/2024 11:20 AM EDT Office Visit Cardiology at [address] [address] Izaiah Meyer MD ASCVD (arteriosclerotic cardiovascular disease); Hyperpiesia; Cardiomyopathy, ischemic 03/29/2024 Travel 02/27/2024 Telephone Cardiology at [address] [address] Izaiah Meyer MD 02/24/2024 11:10 PM EDT Ancillary Procedure Radiology Library at [facility] [place] [address] Masood Pierson MD 02/24/2024 External [place] [phone] from Last 3 Months Social History Tobacco [...] in a snf (including now)? No 11/01/2023 DH IPV Inpatient [...] AM EDT Office Visit Cardiology at [address] [place] [phone] Izaiah Meyer MD [facility] [place] [address] Health Maintenance Due Date Last Done Comments [...] MD IMG FILM LIBRARY ORD ERABLES JACKIE [place], [place] * Scan Doc: Lab (02/24/2024 12:00 [...] Status decision made by: Patient Care Teams Medical Instrument Technician Relationship Specialty Start Date End Date Masood Pierson MD [address] [place] [address] PCP - General Family Medicine 11/24/23
--- OUTSIDE RECORDS SUMMARY | 2024-04-24 17:18 | XMS_ITS | Encounter Summary ---
Author Organization [facility] Address [facility] [place] [address] Care Team Providers Care Post Partum Nurse Name Role Phone Masood Pierson MD Primary Care Provider [phone] Encounter Details Date Type Department Care Team [...] 11:00 AM EDT Office Visit Cardiology at [address] [place] [address] Izaiah Meyer MD [facility] [place] [address] documented as of this encounter Visit Diagnoses Not on filedocumented in this encounter Care Teams Post Partum Nurse Relationship Specialty Start Date End Date Masood Pierson MD [address] [place] [address] PCP - General Family Medicine 11/24/23 documented as of this encounter
--- OUTSIDE RECORDS SUMMARY | 2024-04-24 17:18 | XMS_ITS | Encounter Summary ---
Author Organization [facility] Address [facility] [place] [address] Care Team Providers Care Manager Pricing Name Role Phone Masood Pierson MD Primary Care Provider [phone] Reason for Visit * Reason Comments Coronary Artery Disease Encounter Details Date Type Department Care Team (Latest Contact Info) Description 03/29/2024 11:20 AM EDT Office Visit Cardiology at [address] [place] [address] Izaiah Meyer MD [facility] [place] [address] ASCVD (arteriosclerotic cardiovascular disease); Hyperpiesia; Cardiomyopathy, ischemic Social History Tobacco Use Types Packs/Day Years Used Date Smoking Tobacco: Former Smokeless Tobacco: Never Alcohol Use Standard Drinks/Week Comments Not Currently 0 (1 standard drink = 0.6 oz pur e alcohol) [facility] Utilities Answer Date Recorded In the [...] 3.5 x 15 Andrea 3.5 x 15 [place] RCA Mid AoCTO. Collats from Cx 4.0 [...] continue current regimen. RTC 6 months Kira Gutiérrez APRN Cardiology Attending Addendum I shared this [...] 11:00 AM EDT Office Visit Cardiology at [address] [phone] Izaiah Meyer MD [facility] [place] [address] documented as of this encounter Visit Diagnoses Diagnosis ASCVD (arteriosclerotic cardiovascular disease) Unspecified cardiovascular disease Hyperpiesia Unspecified essential hypertension Cardiomyopathy, ischemic Other specified forms of chronic ischemic heart disease documented in this encounter Care Teams Manager Pricing Relationship Specialty Start Date End Date Masood Pierson MD [address] [place] [address] PCP - General Family Medicine 11/24/23 documented as of this encounter
--- OUTSIDE RECORDS SUMMARY | 2024-04-24 17:19 | XMS_ITS | Encounter Summary ---
Author Organization [facility] Address [facility] [place] [address] Care Team Providers Care Stop Attacher Name Role Phone Masood Pierson MD Primary Care Provider [phone] Encounter Details Date Type Department Care Team (Late st Contact Info) Description 12/16/2023 Telephone Cardiology at [address] [place] [address] Izaiah Meyer MD [facility] [place] [address] Social History Tobacco Use Types Packs/Day Years Used Date Smoking Tobacco: Former Smokeless Tobacco: Never Alcohol Use Standard Drinks/Week Comments Not Currently 0 (1 standard drink = 0.6 oz pur e alcohol) [facility] Utilities Answer Date Recorded In the past 12 months has [employer], gas, oil, or water [employer] threatened to shut off services in your [...] RN - 12/16/2023 11:25 AM EDT Denise, [facility] Cardiac elementary summer school teacher, called to report that at today's session [...] 11:00 AM EDT Office Visit Cardiology at [address] [place] [address] Izaiah Meyer MD [facility] [place] [address] documented as of this encounter Visit Diagnoses Not on filedocumented in this encounter Care Teams Stop Attacher Relationship Specialty Start Date End Date Masood Pierson MD [address] [place] [address] PCP - General Family Medicine 11/24/23 documented as of this encounter
--- OUTSIDE RECORDS SUMMARY | 2024-04-24 17:19 | XMS_ITS | Encounter Summary ---
Author Organization [facility] Address [facility] [place] [address] Care Team Providers Care Gate Clerk Name Role Phone Masood Pierson MD Primary Care Provider Encounter Details Date Type Department Care Team (Late st Contact Info) Description 02/24/2024 External Results Transfer Center [facility] [place] [phone] Social History Tobacco Use Types Packs/Day Years Used Date Smoking Tobacco: Former Smokeless Tobacco: Never Alcohol Use Standard Drinks/Week Comments Not Currently 0 (1 standard drink = 0.6 oz pur e alcohol) [facility] Utilities Answer Date Recorded In the past 12 months has [employer], gas, oil, or water [employer] threatened to shut off services in [...] 11:00 AM EDT Office Visit Cardiology at [address] [place] [address] Izaiah Meyer MD [facility] [place] [address] documented as of this encounter Procedures Procedure Name Priority Date/Time Associated Diagnosis Comments MISC EXTERNAL CARDIOLOGY RESULT Routine 02/24/2024 11:10 PM EDT documented in this encounter Results * External Cardiology Result (02/24/2024 11:10 PM EDT) Anatomical Region Laterality Modality Other Historical Provider EXTERNAL CARDIOLO GY RESULT documented in this encounter Visit Diagnoses Not on filedocumented in this encounter Care Teams Gate Clerk Relationship Specialty Start Date End Date Masood Pierson MD [address] [place] [address] PCP - General Family Medicine 11/24/23 documented as of this encounter
--- OUTSIDE RECORDS SUMMARY | 2024-04-24 17:19 | XMS_ITS | Encounter Summary ---
Author Organization [facility] Address [facility] [place] [address] Care Team Providers Care Para Professional Name Role Phone Rosie Mathews MD Primary Care Provider [phone] Reason for Visit * Reason Onset Date Comments Referral 11/03/2023 Coronary Artery Disease 11/03/2023 Encounter Details Date Type Department Care Team (Late st Contact Info) Description 11/03/2023 Telephone Cardiology at [address] [address] Andressa Machado, aml analyst; Coronary Artery Disease Social History Tobacco Use Types Packs/Day Years Used Date Smoking Tobacco: Former Smokeless Tobacco: Never Alcohol Use Standard Drinks/Week Comments Not Currently 0 (1 standard drink = 0.6 oz pur e alcohol) [facility] Utilities Answer Date Recorded In the past 12 months has e [employer], gas, oil, or water [employer] threatened to shut off services in your [...] were not included. [facility] [address] [place] [phone] Lyla was referred to this Cardiology clinic in [place] for post cardiac cath 10/31 for STEMI follow up as part of her discharge plan from [facility] documented in this encounter Plan of Treatment Upcoming Encounters Date Type Department Care Team (Late st Contact Info) Description 10/24/2024 11:00 AM EDT Office Visit Cardiology at [address] [place] [address] Izaiah Meyer MD [facility] [place] [address] documented as of this encounter Visit Diagnoses Not on filedocumented in this encounter Care Teams Para Professional Relationship Specialty Start Date End Date Rosie Mathews MD [address] [place] [address] PCP - General Family Medicine 11/25/17 11/23/23 documented as of this encounter
--- OUTSIDE RECORDS SUMMARY | 2024-04-24 17:19 | XMS_ITS | Encounter Summary ---
Author Organization [facility] Address [facility] [place] [address] Care Team Providers Care Model Photographers' Name Role Phone Masood Pierson MD Primary Care Provider [phone] Encounter Details Date Type Department Care Team (Late st Contact Info) Description 02/27/2024 Telephone Cardiology at [address] [place] [address] Izaiah Meyer MD [facility] [place] [address] Social History Tobacco Use Types Packs/Day Years Used Date Smoking Tobacco: Former Smokeless Tobacco: Never Alcohol Use Standard Drinks/Week Comments Not Currently 0 (1 standard drink = 0.6 oz pur e alcohol) [facility] Utilities Answer Date Recorded In the past 12 months has [employer], gas, oil, or water [employer] threatened to shut off services in your [...] 3:30 PM EDT Lyla was seen at [facility] this past Tuesday for chest pain and returned to the ED Tuesday for back pain.Per patient both times it was determined she was having no cardiac issues but she was told to let her medical physics teacher know. At present she is not having [...] 11:00 AM EDT Office Visit Cardiology at [address] [phone] Izaiah Myeer MD [facility] [place] [address] documented as of this encounter Visit Diagnoses Not on filedocumented in this encounter Care Teams Model Photographers' Relationship Specialty Start Date End Date Masood Pierson MD [address] [place] [address] PCP - General Family Medicine 11/24/23 documented as of this encounter
--- OUTSIDE RECORDS SUMMARY | 2024-04-24 17:19 | XMS_ITS | Encounter Summary ---
Author Organization [facility] Address [facility] [place] [address] Care Team Providers Care Insulation Engineman Name Role Phone aMsood Pierson MD Primary Care Provider [phone] Reason for Visit * Reason Comments Establish Care Coronary Artery Disease Encounter Details Date Type Department Care Team (Latest Contact Info) Description 11/24/2023 10:40 AM EDT Office Visit Cardiology at [address] [place] [address] Izaiah Meyer MD [facility] [place] [address] ASCVD (arteriosclerotic cardiovascular disease); Cardiomyopathy, ischemic; Ascending aorta dilatation; Hyperpiesia Social History Tobacco Use Types Packs/Day Years Used Date Smoking Tobacco: Former Smokeless Tobacco: Never Alcohol Use Standard Drinks/Week Comments Not Currently 0 (1 standard drink = 0.6 oz pur e alcohol) [facility] Utilities Answer Date Recorded In the past [...] Prox 60 Mid 80 3.5 x 15 [place] 3.5 x 15 Andrea RCA Mid AoCTO. Collats from Cx 4.0 x 38 [place] NB: RCA initially intervened; Cx 2 days [...] y.o. female. HPI: 83 f presents to [facility] cardiovascular care. She has a [...] 11:00 AM EDT Office Visit Cardiology at [address] [place] [phone] Izaiah Meyer MD [facility] [place] [address] documented as of this encounter Visit Diagnoses Diagnosis ASCVD (arteriosclerotic cardiovascular disease) Unspecified cardiovascular disease Cardiomyopathy, ischemic Other specified forms of chronic ischemic heart disease Ascending aorta dilatation Thoracic aortic ectasia Hyperpiesia Unspecified essential hypertension documented in this encounter Care Teams Insulation Engineman Relationship Specialty Start Date End Date Masood Pierson MD [address] [place] [address] PCP - General Family Medicine 11/24/23 documented as of this encounter
--- OUTSIDE RECORDS SUMMARY | 2024-04-24 17:19 | XMS_ITS | Encounter Summary ---
Author Organization [facility] Address [facility] [place] [address] Care Team Providers Care Research Professional Name Role Phone Rosie Mathews MD Primary Care Provider [phone] Reason for Referral * Consultation (Routine) - Authorized Specialty Diagnoses / Procedures Referred By Contac t Referred To Contact Cardiology Diagnoses 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 Rosa Hugo MD [facility] [address] Cardiac Rehab, [address] [place] [address] Referral ID Status Reason Start Date Expiration Date Visits Requested Visits Authorized [id number] Authorized Consult, Test & Treat Non PCP 11/03/2023 05/01/2024 36 36 * Home Health Care (Routine) - Authorized Specialty Diagnoses / Procedures Referred By Contac t Referred To Contact Diagnoses Unstable angina Rosa Hugo MD [facility] [place] [address] Referral ID Status Reason Start Date Expiration Date Visits Requested Visits Authorized [id number] Authorized Consult, Test & Treat 11/03/2023 05/01/2024 999 999 Reason for Visit * Auth/Cert (Routine) Specialty Diagnoses / Procedures Referred By John t Referred To Contact Diagnoses Unstable angina Chest pain NSTEMI Procedures CARDIAC CATHETERIZATION Rosa Dewey MD [facility] [place] [address] [facility] Referral ID Status Reason Start Date Expiration Date Visits Re quested Visits Authorized [id number] 1 1 Encounter Details Date Type Department Care Team (Latest Contact Info) Description 10/30/2023 5:11 PM EDT - 11/03/2023 5:13 PM EDT Hospital Encounter Heart and Vascular Unit Level 4 [place] [id number] Rosa Dewey MD [facility] [place] [address] Jean Laboy MD [facility] [place] [address] Rosa Hugo MD [facility] [place] [address] 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; Tachycardia; Unstable angina Discharge Disposition: Home Social History Tobacco Use Types Packs/Day Years Used Date Smoking Tobacco: Former Smokeless Tobacco: Never Alcohol Use Standard Drinks/Week Comments Not Currently 0 (1 standard drink = 0.6 oz pur e alcohol) [facility] Utilities Answer Date Recorded In the past 12 months has e [employer], gas, oil, or water [employer] threatened to shut off services in [...] [facility] [place] [facility] a transfer from [facility] as a possible STEMI alert with acute onset chest pain. The patient reports that her symptoms initially began on Tuesday when she was walking to [employer] and experienced bilateral arm heaviness while walking with no other symptoms. Then, this afternoon shereports developing bilateral achy shoulder pain and nonradiating substernal left-sided chest pressure that was 7/10 in severity after coming home from yarsanism. The patient denies any associated fevers, chills, [...] the patient was taken directly to the Liquor Grinder Mill Operator. Two lesions were discovered: one in the prox RCA (felt to almost be a CABLE TELEVISION ACCESS COORDINATOR but they were able to wire, [...] dose administered prior to arrival in the home performance laborer. Recommended anti-platelet/anti-thrombotic regimen: Continue aspirin 81 [...] and low lung volumes. Findings similar to client support consultant radiograph from CT 10/30/2023. Pending Studies and [...] 10:40 AM Izaiah Meyer MD Cardiology at [place] Arrive at: [facility] [address] [phone] Future Orders Complete By Expires Referral to Cardiac Rehab [[id number] Custom] As directed Process Instructions: If no progress note charted, please enter Clinical details in comments. Scheduling Instructions: Questions: My question or request is: STEMI. Cardiac rehab at [facility]. Referral to Home Health [REF34 Custom] As directed Process Instructions: If no progress note charted, please enter Clinical details in comments. Scheduling Instructions: Comments: Please evaluate Adin Santos for admission to Home Health. [address] [facility] [phone] (home) Date of : 1940 Inpatient DOCUMENTATION FOR VNA SERVICES (INCLUDING THOSE PATIENTS WITH MEDICARE COVERAGE REQUIRING HOME VNA SERVICES AND/OR HOSPICE SERVICES) PATIENT'S LOCATION: Adin Santos [address] [facility] [address] (home) Cell: Telephone Information: Supervisor Adult Education's Name: self In discussion with the attending physician, it is certified that this patient is under their care and that they, or a Nurse Practitioner, Clinical Nurse specialist or Physician Batt Packer who is working directly with them, had [...] regarding health issues HOME HEALTH CARE AGENCY: [facility] [address] [place] [address] START OF CARE: within 24-48 hours of [...] Mathews MD [address] / [facility] [address] . All VNA agencies which [...] Mathews MD / Dr. Masood Pierson [address] [place] [phone] 11/09/23 1:55 PM arrival for 2:10 PM appointment Pool Manager: Izaiah Meyer MD [address] [place] [address] , 11/24/2023 10:40 AM Your Inpatient Medical Team at [facility] Name(s) of your inpatient provider(s): Attending physician: Rosa Hugo MD Resident physicians: Emile Robles MD; Elmer Tamez MD If you have non-emergent questions, prior to your follow-up visit call: Tuesday-Tuesday between the hours of 8AM-5PM please call the Cardiology Clinic [phone] to speak with a nurse. All other hours please call the Hospital Custom Wood Stair Builder [phone] and ask to speak to the ehs teacher on-call. Your Primary Care Provider Rosie Mathews MD [phone] For questions regarding this document or issues relating to this hospitalization on the Medical Service, please contact your inpatient physician through the [facility] Custom Wood Stair Builder . Issues afterhours and on weekends will be handled by the Pool Manager staff on-call. Associated attestation - Rosa [...] MD / Dr. Masood Pierson [address] [place] [address] 11/09/23 1:55 PM arrival for 2:10 PM appointment Pool Manager: Izaiah Meyer MD [address] [place] [address] , 11/24/2023 10:40 AM Your Inpatient Medical Team at [facility] Name(s) of your inpatient provider(s): Attending physician: Roas Hugo MD Resident physicians: Emile Robles MD; Elmer Tamez MD If you have non-emergent questions, prior to your follow-up visit call: Tuesday-Tuesday between the hours of 8AM-5PM please call the Cardiology Clinic [phone] to speak with a nurse. All other hours please call the Hospital Custom Wood Stair Builder [phone] and ask to speak to the ehs teacher on-call. Your Primary Care Provider Rosie Mathews MD [phone] documented in this encounter Medications at Time [...] [facility] [place] [place] a [facility] [place] [...] Resident on Cardiology Service Cardiology S1 (Pager [phone]) Note written in conjunction with Claudio Perla [facility] Medical Student, MS3 Associated attestation - [...] Nirmala Webb - 11/01/2023 11:25 AM EDT Elevator Repairer Helper Encounter Note Patient Name: Adin Santos : [id number] MR#: [id number] Admit Date: 10/30/2023 5:11 PM Hospital Day 2 days Narrative: Self initiated visit to patient for Spiritual support in a regular unit rounds. Assessment: Patient is in the bathroom at the time of this visit. Not a good time for Collateral Clerk visit. Intervention and Outcome: An attempted visit [...] [facility] [place] [place] [...] and low lung volumes. Findings similar to client support consultant radiograph from CT 10/30/2023. Scheduled Medications: [AUG [...] [facility] [place] [place] [...] Resident on Cardiology Service Cardiology S1 (Pager [phone]) Note written in conjunction with Claudio Perla [facility] Medical Student, MS3 Associated attestation - [...] [facility] a transfer from [facility] as a possible STEMI alert with acute onset chest pain. Active Problems: Active Hospital Problems Diagnosis Unstable angina Resolved Hospital Problems No resolved problems to display. 24 hr events: - Cath'd yesterday with lesion in the proximal RCA (initially thought it was CABLE TELEVISION ACCESS COORDINATOR but they were ableto wire, balloon [...] and low lung volumes. Findings similar to client support consultant radiograph from CT 10/30/2023. TTE (10/30): Interpretation [...] [facility] [place] [...] Resident on Cardiology Service Cardiology S1 (Pager [phone]) Note written in conjunction with Claudio Perla [facility] Medical Student, MS3 Associated attestation - [...] PCP: Rosie Mathews MD PCP phone number: [phone] Date of Admission: 10/30/2023 ( Hospital Day 0 days ) Attending:Rosa Cornejo MD ID: Adin Santos is a 83 y.o. female PMH significant for hypertension and hyperlipidemia who presented to [facility] as a transfer from [facility] as a possible STEMI alert with acute onset chest pain. The patient reports that her symptoms initially began on Tuesday when she was walking to [facility] and experienced bilateral arm heaviness while walking with no other symptoms. Then, this afternoon shereports developing bilateral achy shoulder pain and nonradiating substernal left-sided chest pressure that was 7/10 in severity after coming home from yarsanism. The patient denies any associated fevers, chills, [...] the patient was taken directly to the Liquor Grinder Mill Operator. 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 Findings similar to client support consultant radiograph from CT 10/30/2023. Assessment & Plan: Adin Santos is a 83 y.o. female PMH significant for hypertension and hyperlipidemia who presented to [facility] [place] [...] with HTN HLD transferred with chest from [facility]. BP 217/68, HR 71 EKG with [...] Contact information for [facility] [place] [address] [place] [address] TANESHA BOYCE confirmed with [facility] that they will see the [...] N/A Patient is insured through: Primary Insurance: [employer] MANAGED MEDICARE Payor: [employer] MEDICARE / Plan: [employer] MA[employer]ED MEDICARE PPO / Product Type: *No [...] the room. Electrolytes replaced, see MAR. labor delivery specialist sites remained C/D/I with baseline ecchymosis unchanged. Pt complained of back pain, lidocaine patch given. Right IV infiltrated during infusion, patient is marked with sharpie, IV removed. See flowsheet for I+O's and safety rounding. Patient is able to make needs known and call capps within reach. PLAN MOVING FORWARD: Monitor Tele, control BP, monitor home performance laborer sites, D/C Planning INDIVIDUALIZED FALL PREVENTION [...] in an outpatient cardiac rehabilitation program at [facility] was discussed. Patient agrees to a [...] and above on RA. PT went to home performance laborer today. Left fem site oozed throughout [...] MOVING FORWARD: Monitor Tele, control BP, monitor home performance laborer sites, D/C Planning INDIVIDUALIZED FALL PREVENTION [...] as Appropriate) * Initial Assessments - Bruce Wlaler RN - 11/01/2023 1:59 PM EDT Office of Care Management Initial Assessment Bruce Waller RN reviewed record and discussed patient with Care Team. Source of Information: Team, bedside nurse, medical record, and Patient, Chart Review Introduced self/reviewed role; services accepted. Admitted From: Transfer from another hospital Location: [facility] Reason for Hospitalization: chest pain Covid [...] receiving care in [place] must abide by [place] law. The hierarchy [...] (i) The agent with financial power of hockey player or a conservator appointed in accordance with [...] Address confirmed as: [address] [place] [id number] Social & Family Supports: All names listed below confirmed with patient as current and correct Extended Emergency Contact Information Primary Emergency Contact: Iris Downing Address: [address], [place] [address] [place] [address] Mobile Relation: Child Secondary Emergency Contact: Karen More Address: [address] [facility] [address] Mobile Relation: Child Current Care [...] Insurance: N/A Prescription Coverage: Yes Preferred Pharmacy: [facility] - [place], [place] - [address] [facility] [address] [facility] [address] Status: Patient is a : No Primary Care Provider listed: Masood Pierson MD [phone] Patient/Caregiver Goals of Treatment: home when MR Potential Needs for Transition of Care: home health care Agency Referrals: Not Applicable I have met with the patient to: discuss discharge planning needs. provide the [facility], Office of Care Management letter from the Master Planner pertaining to rehab referrals. provide a letter describing our affiliations within the [facility] and educate about their right to choose where referrals are sent. provide a list of Home Health Agencies / Durable Medical Equipment vendors which serve their preferred geographic area. provided patient with [facility] Star Quality Rating handout. They have requested referrals to: [facility] [address] [place] [address] Note routed to a Shank Carrier who will communicate referrals to facilities and [...] PO hydralazine added for BP control. labor delivery specialist sites remain C/D/I, ecchymosis unchanged th roughout shift. See flowsheet for I+O's and safety rounding. Patient is able to make needs known and call capps within reach. PLAN MOVING FORWARD: Monitor Tele, control CP and BP, NPO at MD for cath, monitor home performance laborer sites, D/C Planning INDIVIDUALIZED FALL PREVENTION [...] 11:00 AM EDT Office Visit Cardiology at [address] [place] [address] Izaiah Meyer MD [facility] [place] [address] Scheduled Referrals Name Type Priority Associated Diagnoses [...] Absolute 5.28 1.70 - 6.10 x10(3)/ L [facility] Lymph % 15.2 % [facility] Lymphocytes Abs 1.3 0.9 - 3.2 x10(3)/[facility] Monocyte % 16.9 % [facility] Monocyte Abs 1.4(H) 0.3 - 0.9 x10(3)/[facility] Eos % 3.7 % [facility] Eosinophils Abs 0.3 0.0 - 0.4 x10(3)/[facility] Basophil % 0.5 % [facility] Baso Absolute 0.0 0.0 - 0.1 x10(3)/[facility] Immature Gran % 0.40 % [facility] Comment: Immature granulocytes(IG's)percentage and absolute count will include metamyelocytes, myelocytes, and promyelocytes. Blood smears from CBCs yielding IG's will be scanned manually for concordance. If this scan disagrees with the automated IG or if promyelocytes are noted, a manual differential will be performed. Immature Gran Absolute 0.03 0.00 - 0.04 x10(3)/ L [facility] Blood 11/03/2023 3:46 AM EDT 11/03/2023 4:11 AM EDT Narrative Resulting Agency Comment Spec In Lab Qamar Gallardo MD HEMATOLOGY ORDERABLE S [facility] [place] [address] * (ABNORMAL) Hemogram (11/03/2023 3:46 AM EDT) White Blood Cell 8.3 4.0 - 9.5 x10(3)/mc L [facility] Red Blood Cell 3.77(L) 4.00 - 5.21 x10(6)/mc L [facility] Hemoglobin 13.1 11.7 - [...] RDW Standard Deviation 54.7(H) 37.0 - 46.0 [facility] RDW coefficient of variation 14.6(H) 11.5 - 14.1 % [facility] Mean Platelet Volume 11.2 7.6 - 12.9 fL [facility] NRBC% auto 0.0 % [facility] NRBC Absolute 0.000 0.000 - 0.000 x10(3)/ L [facility] Blood 11/03/2023 3:46 AM EDT 11/03/2023 4:11 AM EDT Narrative Resulting Agency Comment Spec In Lab Qamar Gallardo MD HEMATOLOGY ORDERABLE S [facility] [place] [address] * Phosphorus (11/03/2023 3:46 AM EDT) Phosphorus 3.2 2.5 - 4.5 mg/dL [facility] Comment:result rechecked-KS Blood 11/03/2023 3:46 AM EDT 11/03/2023 4:11 AM EDT Narrative Resulting Agency Comment Spec In Lab Rosa Cornejo MD CHEMISTRY ORDERABLE S Performing Organization Address City/[facility]/ZIP Co de Phone Number [facility] [place] [address] * Magnesium (11/03/2023 3:46 AM EDT) Magnesium 0.90 0.69 - 1.07 mmol/L [facility] Blood 11/03/2023 3:46 AM EDT 11/03/2023 4:11 AM EDT Narrative Resulting Agency Comment Spec In Lab Rosa Cornejo MD CHEMISTRY ORDERABLE S Performing Organization Address City/[facility]/ZIP Co de Phone Number [facility] [place] [address] * (ABNORMAL) Basic Metabolic Panel (non-fasting) (11/03/2023 [...] CHEMISTRY ORDERABLE S [facility] [place] [id number] * EKG 12 Lead (11/02/2023 12:44 PM EDT) Ventricular rate 83 BPM MUSE SYSTEM Atrial Rate 83 BPM MUSE SYSTEM P-R Interval 216 ms MUSE SYSTEM QRS Duration 90 ms MUSE SYSTEM Q-T Interval 384 ms MUSE SYSTEM QTC Calculated (Bezet) 451 ms MUSE SYSTEM Calculated P Bruno 92 degrees MUSE SYSTEM Calculated R Bruno -51 degrees MUSE SYSTEM Calculated T Bruno -33 degrees MUSE SYSTEM INTERPRETATION Sinus rhythm with 1st degree A-V block with Premature atrial complexes Left axis deviation Moderate voltage criteria for LVH, may be normal variant ( R in aVL , Ifeanyi product ) Anterolatera l infarct (cited on or before 01-NOV-2023) Abnormal ECG When compared with ECG of 01-NOV-2023 22:10, Premature atrial complexes are now Present NC interval has increased Vent. rate has decreased [...] Tamez MD URINE ORDERABLES Performing Organization Address City/[facility] Co de Phone Number [facility] [place] [address] * (ABNORMAL) Urinalysis with reflex Culture (11/02/2023 [...] LABORATORY Leukocytes, Urine Dipstick Small(A) Negative [facility] Appearance, Urine Dipstick Cloudy(A) Clear [facility] Specific Nova Urine Automated >=1.030(A) 1.005 - 1.030 [facility] Color, Urine Dipstick Dark Yellow Yellow [facility] Reflex to Culture Yes [facility] Clean Catch Urine 11/02/2023 11:40 AM EDT 11/02/2023 12:04 PM EDT Narrative Resulting Agency Comment Spec In Lab Rosa Hugo MD URINE ORDERABLES [facility] [place] [phone] * Respiratory Panel PCR (11/02/2023 10:15 AM EDT) Respiratory Panel Source NUCLEAR POWERPLANT MECHANIC Swab [facility] Respiratory Panel PCR Negative Negative [facility] Comment: Respiratory Panels are performed on the [employer], using multiplexed PCR nucleic acid detection. ??Negative [...] diagnosis of COVID-19 is performed using the [employer] Respiratory Panel 2.1 ([employer]) as authorized by the FDA issued Emergency [...] fact sheets at the following FDA website: https://www.fda.gov/medical-devices/wtfdjxcrqqn-sqrajnu-7874-pmugc-57-devnednbd- use-a cgjolbhlsajxx-zcmydqg-sjkagok/eladk-baeqldetqsv-pjop Human Metapneumovirus Not Detected Not Detected [facility] [...] GEN ERAL ORDERABLES [facility] [place] [address] * XR Chest One View (11/02/2023 2:51 AM EDT) WORKSTATION ID [id number] RAD Anatomical Region Laterality Modality Chest N/A Digital Radiogra phy Impressions 11/02/2023 4:56 AM EDT 1. ??No focal consolidation to suggest pneumonia. 2. ??Stable cardiomediastinal silhouette and the setting of known ascending aortic aneurysm. Preliminary report signed by: Prvain Puentes MD at 11/02/2023 4:05 AM ?? [...] who have questions please contact the health cattle care worker that requested your imaging first. ? Electronically signed by: Omaira Tran MD, [facility] ([phone]), at 11/02/2023 4:56 AM Narrative 11/02/2023 4:56 [...] patients who have questions please contactthe health cattle care worker that requested your imaging first. Rosa Hugo MD IMG DX ORDERABLES * (ABNORMAL) Differential, Automated (11/02/2023 12:35 AM EDT) Neutrophil % 76.5 % [facility] Neutrophil Absolute 7.69(H) 1.70 - 6.10 x10(3)/mc L [facility] Lymph % 8.3 % [facility] Lymphocytes Abs 0.8(L) 0.9 - 3.2 x10(3)/ L [facility] Monocyte % 12.9 % [facility] Monocyte Abs 1.3(H) 0.3 - 0.9 x10(3)/mc L [facility] Eos % 1.4 % [facility] Eosinophils Abs 0.1 0.0 - 0.4 x10(3)/mc L [facility] Basophil % 0.4 % [facility] Baso Absolute 0.0 0.0 - [...] Absolute 0.05(H) 0.00 - 0.04 x10(3)/mc L [facility] Blood 11/02/2023 12:3 5 AM EDT 11/02/2023 12:43 AM EDT Narrative Resulting Agency Comment Spec In Lab Qamar Gallardo MD HEMATOLOGY ORDERABLE S [facility] [place] [address] * (ABNORMAL) Hemogram (11/02/2023 12:35 AM EDT) [...] Mean Platelet Volume 11.4 7.6 - 12.9 [facility] NRBC% auto 0.0 % [facility] NRBC Absolute 0.000 0.000 - 0.000 x10(3)/ L [facility] Blood 11/02/2023 12:3 5 AM EDT 11/02/2023 12:43 AM EDT Narrative Resulting Agency Comment Spec In Lab Qamar Gallardo MD HEMATOLOGY ORDERABLE S [facility] [place] [address] * (ABNORMAL) Phosphorus (11/02/2023 12:35 AM EDT) [facility] Phosphorus 1.6(L) 2.5 - 4.5 mg/dL [facility] Blood 11/02/2023 12:3 5 AM EDT 11/02/2023 12:43 AM EDT Narrative Resulting Agency Comment Spec In Lab Rosa Cornejo MD CHEMISTRY ORDERABLE S Performing Organization Address City/[facility]/ZIP Co de Phone Number [facility] [place] [address] * Magnesium (11/02/2023 12:35 AM EDT) [facility] Magnesium 0.87 0.69 - 1.07 mmol/L [facility] Blood 11/02/2023 12:3 5 AM EDT 11/02/2023 12:43 AM EDT Narrative Resulting Agency Comment Spec In Lab Rosa Cornejo MD CHEMISTRY ORDERABLE S Performing Organization Address City/[facility]/ZIP Co de Phone Number [facility] [place] [address] * Basic Metabolic Panel (non-fasting) (11/02/2023 12:35 AM EDT) [facility] Glucose 125 65 - 199 mg/dL [facility] [...] CHEMISTRY ORDERABLE S [facility] [place] [address] * Blood culture (11/02/2023 12:35 AM EDT) Blood Culture No growth at 5 days. [facility] Blood 11/02/2023 12:3 5 AM EDT 11/02/2023 1:55 AM EDT Comment:#2 site ukn Narrative Resulting Agency Comment Spec In Lab Rosa Hugo MD MICROBIOLOGY - BLO OD ORDERABLES [facility] [place] [address] * Blood culture (11/02/2023 12:15 AM EDT) Blood Culture No growth at 5 days. [facility] Blood 11/02/2023 12:1 5 AM EDT 11/02/2023 1:54 AM EDT Comment:#1site unk Narrative Resulting Agency Comment Spec In Lab Rosa Hugo MD MICROBIOLOGY - BLO OD ORDERABLES Performing Organization Address City/[facility]/ZIP Co de Phone Number [facility] [place] [phone] * EKG 12 Lead (11/01/2023 10:10 PM EDT) Ventricular rate 139 BPM MUSE SYSTEM Atrial Rate 139 BPM MUSE SYSTEM P-R Interval 168 ms MUSE SYSTEM QRS Duration 84 ms MUSE SYSTEM Q-T Interval 286 ms MUSE SYSTEM QTC Calculated (Bezet) 435 ms MUSE SYSTEM Calculated R Bruno -59 degrees MUSE SYSTEM Calculated T Bruno -27 degrees MUSE SYSTEM INTERPRETATION Mid-RP tachycardia, [...] interpretation Confirmed by fellow MD Andrés, Enriqueta ([id number]) on 11/04/2023 7:57:50 AM Confirmed by MD Carrillo Danette ([id number]) on 11/04/2023 4:32:03 PM MUSE SYSTEM 11/01/2023 10:1 0 PM EDT 11/04/2023 4:32 PM EDT Rosa Cornejo MD ECG ORDERABLES Performing Organization Address [facility]/ZIP Co de Phone Number MUSE SYSTEM * (ABNORMAL) Hemogram (11/01/2023 10:06 PM EDT) White Blood Cell 10.4(H) 4.0 - 9.5 x10(3)/[facility] LABORATORY Red Blood Cell 4.11 4.00 - 5.21 x10(6)/[facility] LABORATORY Hemoglobin 14.0 11.7 - 15.5 [...] CENTER LABORATORY Platelet 197 145 - 357 x10(3)/[facility] LABORATORY RDW Standard Deviation 54.0(H) 37.0 - 46.0 [facility] LABORATORY RDW coefficient of variation 14.6(H) 11.5 - 14.1 % [facility] Mean Platelet Volume 11.2 7.6 - 12.9 fL [facility] NRBC% auto 0.0 % [facility] NRBC Absolute 0.000 0.000 - 0.000 x10(3)/[facility] LABORATORY Blood 11/01/2023 10:0 6 PM EDT 11/01/2023 10:22 PM EDT Narrative Resulting Agency Comment Spec In Lab Rosa Hugo MD HEMATOLOGY ORDERAB LES [facility] [place] [address] * POCT Glucose (11/01/2023 5:59 PM EDT) [facility] Glucose, POC 104 65 - 199 mg/dL [facility] Comment: Supplemental ranges: <140 mg/dL before meals <180 mg/dL all other times of the day Blood 11/01/2023 5:59 PM EDT 11/01/2023 5:59 PM EDT Rosa Hugo MD POINT OF CARE TEST ORDERABLES Performing Organization Address City/[facility]/ZIP Co de Phone Number [facility] [place] [address] * POCT Glucose (11/01/2023 5:35 PM EDT) Glucose, POC 85 65 - 199 mg/dL [facility] Comment: Supplemental ranges: <140 mg/dL before meals <180 mg/dL all other times of the day Blood 11/01/2023 5:35 PM EDT 11/01/2023 5:35 PM EDT Rosa Hugo MD POINT OF CARE TEST ORDERABLES Performing Organization Address [facility] Co de Phone Number [facility] [place] [address] * EKG 12 Lead (11/01/2023 3:22 PM EDT) Ventricular rate 59 BPM MUSE SYSTEM Atrial Rate 59 BPM MUSE SYSTEM P-R Interval 220 ms MUSE SYSTEM QRS Duration 94 ms MUSE SYSTEM Q-T Interval 428 ms MUSE SYSTEM QTC Calculated (Bezet) 423 ms MUSE SYSTEM Calculated P Bruno 76 degrees MUSE SYSTEM Calculated R Bruno -50 degrees MUSE SYSTEM Calculated T Bruno -59 degrees MUSE SYSTEM INTERPRETATION Sinus bradycardia with sinus arrhythmia with 1st degree A-V block Left anterior fascicular block Moderate voltage criteria for LVH, may be normal variant ( R in aVL , Jachin product ) Cannot rule out Inferior infarct [...] Modality Other Narrative 11/02/2023 4:57 PM EDT ?[facility] ? Cardiac Catheterization/Intervention Report ? Patient Name: Adin Santos Dorene. ? Procedure Date: 11/01/2023 ? A #: [id number] ? Primary Physician: Rosa Dewey I ? Case #: [id number] ? File Name: [id number] ? Catheterization Order Number: [id number] ? [facility] ? Final Report [place], [place] ? Patient Name: ? Adin Nadiya Santos ?ID#: ?[id number] ? : ?1940 ? Procedure Date: ? November 01, 2023 ? Case #: ? [id number] ? Room: ? 2 ? Case Physician: ? Rosa Dewey M.D. ? Start: ?13:53 ? Admission: ??10/30/2023 ? Referring Physician: ??Omaira H [place], M.D. ? Discharge: ??11/03/2023 ? Procedures: ?* [...] procedure was Urgent. The indication for ?the home performance laborer visit is ACS greater than 24 [...] ??A premounted ? 3.50 x 15 mm [place] (RADHA) was deployed with a maximum ? [...] A premounted 3.50 x 15 mm Andrea Saluda (RADHA) was deployed ? with a maximum [...] dose administered prior to arrival in the home performance laborer. ?Recommended anti-platelet/anti-thrombotic regimen: ?Continue aspirin 81 [...] Procedure Note Rosa Dewey MD - 12/12/2023 [facility] Cardiac Catheterization/Intervention Report Patient Name: Adin Santos Procedure Date: 11/01/2023 A #: [id number] Primary Physician: Rosa Dewey I Case #: [id number] File Name: [id number] Catheterization Order Number: [id number] [facility] FinalReport [place], [place] Patient Name: Adin Santos ID#:[id number] :1940 Procedure Date: November 01, 2023 Case [...] diagnostic procedure was Urgent. The indicationfor the home performance laborer visit is ACS greater than 24 [...] atmospheres. Apremounted 3.50 x 15 mm Andrea Saluda (RADHA) was deployed with amaximum inflation pressure [...] The lesion was predilated with a 3.00mm [id number] MM balloon with a maximum inflation pressure of 14atmospheres. A premounted 3.50 x 15 mm [place] (RADHA) wasdeployed with a maximum inflation pressure [...] dose administered prior to arrival in the home performance laborer. Recommended anti-platelet/anti-thrombotic regimen: Continue aspirin 81 [...] 7:06 AM EDT) [facility] Glucose, POC 93 65 - 199 mg/dL [facility] Comment: Supplemental ranges: <140 mg/dL before meals <180 mg/dL all other times of the day Blood 11/01/2023 7:06 AM EDT 11/01/2023 7:06 AM EDT Jean Laboy MD POINT OF CARE TEST O RDERABLES [facility] [place] [address] * (ABNORMAL) Differential, Automated (11/01/2023 3:09 AM EDT) [facility] Neutrophil % 63.9 % [facility] Neutrophil Absolute 5.54 1.70 - 6.10 x10(3)/mc L [facility] Lymph % 20.0 % [facility] Lymphocytes Abs 1.7 0.9 - 3.2 x10(3)/mc L [facility] Monocyte % 11.9 % [facility] Monocyte Abs 1.0(H) 0.3 - 0.9 x10(3)/mc L [facility] Eos % 3.2 % [facility] Eosinophils Abs 0.3 0.0 - 0.4 x10(3)/mc L [facility] Basophil % 0.5 % [facility] Baso Absolute 0.0 0.0 - [...] MD HEMATOLOGY ORDERABLE S Performing Organization Address City/State/[facility] Co de Phone Number [facility] [place] [address] * (ABNORMAL) Hemogram (11/01/2023 3:09 AM EDT) White Blood Cell 8.7 4.0 - 9.5 x10(3)/[facility] LABORATORY Red Blood Cell 3.72(L) 4.00 - 5.21 x10(6)/ L [facility] Hemoglobin 12.5 [...] Platelet 184 145 - 357 x10(3)/ L [facility] RDW Standard Deviation 53.5(H) 37.0 - 46.0 fL [facility] RDW coefficient of variation 14.6(H) 11.5 - 14.1 % [facility] Mean Platelet Volume 11.3 7.6 - 12.9 fL [facility] NRBC% auto 0.0 % [facility] NRBC Absolute 0.000 0.000 - 0.000 x10(3)/mc L [facility] Blood 11/01/2023 3:09 AM EDT 11/01/2023 3:29 AM EDT Narrative Resulting Agency Comment Spec In Lab Qamar Gallardo MD HEMATOLOGY ORDERABLE S Performing Organization Address City/[facility]/ZIP Co de Phone Number [facility] [place] [address] * Phosphorus (11/01/2023 3:09 AM EDT) Phosphorus 2.5 2.5 - 4.5 mg/dL [facility] Blood 11/01/2023 3:09 AM EDT 11/01/2023 3:29 AM EDT Narrative Resulting Agency Comment Spec In Lab Rosa Cornejo MD CHEMISTRY ORDERABLE S Performing Organization Address City/[facility]/ZIP Co de Phone Number [facility] [place] [address] * Magnesium (11/01/2023 3:09 AM EDT) Magnesium 0.82 0.69 - 1.07 mmol/L [facility] Blood 11/01/2023 3:09 AM EDT 11/01/2023 3:29 AM EDT Narrative Resulting Agency Comment Spec In Lab Rosa Cornejo MD CHEMISTRY ORDERABLE S Performing Organization Address City/[facility]/ZIP Co de Phone Number [facility] [place] [address] * (ABNORMAL) Basic Metabolic Panel (non-fasting) (11/01/2023 [...] CHEMISTRY ORDERABLE S [facility] [place] [address] * (ABNORMAL) Troponin (10/31/2023 2:46 PM EDT) [...] troponin value can be found in the [facility] Laboratory Test Catalog Troponin - [facility] Laboratory Test Catalog Reference: Fourth Reardan Definition of Myocardial Infarction. Journal of the [employer] College of [employer]iology 2018;72:1678-4686 Blood 10/31/2023 2:46 PM EDT 10/31/2023 2:55 PM EDT Narrative Resulting Agency Comment Spec In Lab Jean Laboy MD CHEMISTRY ORDERABLES [facility] [place] [address] * EKG 12 Lead (10/31/2023 1:07 PM EDT) Ventricular rate 54 BPM MUSE SYSTEM Atrial Rate 54 BPM MUSE SYSTEM P-R Interval 218 ms MUSE SYSTEM QRS Duration 92 ms MUSE SYSTEM Q-T Interval 540 ms MUSE SYSTEM QTC Calculated (Bezet) 512 ms MUSE SYSTEM Calculated P Bruno 85 degrees MUSE SYSTEM Calculated R Bruno -44 degrees MUSE SYSTEM Calculated T Bruno -69 degrees MUSE SYSTEM INTERPRETATION Sinus bradycardia [...] EDT) Troponin-T, High Sensitivity 580(H) <=14 ng/L [facility] [...] troponin value can be found in the [facility] Laboratory Test Catalog Troponin - [facility] Test Catalog Reference: Fourth Reardan Definition of Myocardial Infarction. Journal of the [employer] College of Cardiology 2018;72:5563-3962 Blood 10/31/2023 11:3 7 AM EDT 10/31/2023 11:50 AM EDT Narrative Resulting Agency Comment Spec In Lab Rosa Cornejo MD CHEMISTRY ORDERABLE S [facility] [place] [address] * ECHO COMPLETE (10/31/2023 8:52 AM EDT) Anatomical Region Laterality Modality Cardiac Other 10/31/2023 7:57 AM EDT Narrative 10/31/2023 9:45 AM EDT [address] [place] [address] ? Echocardiogram Report Name: ADIN SANTOS ? Study Date: 10/31/2023 07:57 AMBP: 106/76 mmHg ? Patient Location: [place] 0481 A : 1940 ? Height: 163 cm ? Account: [id number] Age: 83 yrs ? Weight: 76 kg Gender: Female ?BSA: 1.8 m2 Ordering Physician: ROSA DEWEY Referring Physician: OMAIRA GIRON Performed By: HAFSA Carmichael Reason For Study: STEMI Interpreting Fellow: Raymond Warren. Exam Location: [facility]. Interpretation Summary -The left [...] is no prior echocardiogram for comparison. Procedure Complete-99494. Satisfactory quality. There is sinus bradycardia. Left [...] Note Edgard Wang MD - 10/31/2023 [address] [place] [address] Echocardiogram Report Name: ADIN SANTOS Study Date: 407:57 AMBP: 106/76 mmHg Patient Location: [address] : 1940 Height: 163 cm Account: [id number] Age: 83 yrs Weight: 76 kg Gender: Female BSA: 1.8 m2 Ordering Physician: ROSA DEWEY Referring Physician: OMAIRA GIRON Performed By: HAFSA Carmichael Reason For Study: STEMI Interpreting Fellow: Raymond Warren. Exam Location: [facility]. Interpretation Summary -The left [...] is no prior echocardiogram for comparison. Procedure Complete-86556. Satisfactory quality. There is sinus bradycardia. Left [...] * (ABNORMAL) Troponin (10/31/2023 8:51 AM EDT) [facility] Signature Troponin-T, High Sensitivity 571(H) <=14 ng/L [facility] [...] troponin value can be found in the [facility] Test Catalog Troponin - [facility] Test Catalog Reference: Fourth Reardan Definition of Myocardial Infarction. Journal of the [employer] College of Cardiology 2018;72:7425-4995 Blood 10/31/2023 8:51 AM EDT 10/31/2023 9:12 AM EDT Narrative Resulting Agency Comment Spec In Lab Rosa Cornejo MD CHEMISTRY ORDERABLE S Performing Organization Address City/State/[facility] Co de Phone Number [facility] [place] [address] * CARDIAC CATHETERIZATION (10/31/2023 8:10 AM EDT) Anatomical Region Laterality Modality Other Narrative 11/07/2023 9:42 AM EDT ?[facility] ? Cardiac Catheterization/Intervention Report ? Patient Name: Adin Santos Nadiya ? Procedure Date: 10/30/2023 ? A #: [id number] ? Primary Physician: Rosa Dewey I ? Case #: [id number] ? File Name: [id number] ? Catheterization Order Number: [id number] ? [facility] ? Final Report [place], [place] ? Patient Name: ? Adin M. Goguen ?ID#: ?[id number] ? : ?1940 ? Procedure Date: ? [...] procedure was Emergent. The indication for ?the home performance laborer visit is ACS less than or [...] ? A premounted 4.00 x 38 mm [place] (RADHA) was deployed ? with a maximum [...] dose administered prior to arrival in the home performance laborer. ?Recommended anti-platelet/anti-thrombotic regimen: ?Continue aspirin 81 [...] Procedure Note Rosa Dewey MD - 12/05/2023 [facility] Cardiac Catheterization/Intervention Report Patient Name: Adin Santos Procedure Date: 10/30/2023 A #: [id number] Primary Physician: Rosa Dewey I Case #: [id number] File Name: [id number] Catheterization Order Number: [id number] [facility] FinalReport [place], [place] Patient Name: Adin Pardojonatanjosue ID#:[id number] :1940 Procedure Date: October 30, 2023 Case [...] designated as ASA Class III. The [facility] clinical frailtyscale is 5: Mildly Frail. Diagnostic Tests: Electrocardiography: EKG was assessed by ECG. EKG was Abnormal. EKG showed STDeviation >= 0.5 mm, other abnormality and dynamic EKG changes. Medications Prior to Procedure: Aspirin, Angiotensin II Receptor Kristy, Beta Kristy andStatin. Indications for Diagnostic Cath: The priority of the diagnostic procedure was Emergent. Theindication for the home performance laborer visit is ACS less than or [...] The priority for the procedure was Emergent.The [facility] indication for the procedure [...] A premounted 4.00 x 38 mm Andrea Saluda (RADHA) wasdeployed with a maximum inflation pressure [...] dose administered prior to arrival in the home performance laborer. Recommended anti-platelet/anti-thrombotic regimen: Continue aspirin 81 [...] 4:21 AM EDT) [facility] Troponin-T, High Sensitivity 457(H) <=14 ng/L [facility] [...] troponin value can be found in the [facility] Laboratory Test Catalog Troponin - [facility] Test Catalog Reference: Fourth Reardan Definition of Myocardial Infarction. Journal of the [employer] College of Cardiology 2018;72:5960-0812 Blood 10/31/2023 4:21 AM EDT 10/31/2023 4:30 AM EDT Narrative Resulting Agency Comment Spec In Lab Rosa Cornejo MD CHEMISTRY ORDERABLE S [facility] [place] [address] * (ABNORMAL) Differential, Automated (10/31/2023 3:05 AM EDT) Neutrophil % 71.7 % [facility] Neutrophil Absolute 8.21(H) 1.70 - 6.10 x10(3)/mc L [facility] Lymph % 16.9 % [facility] Lymphocytes Abs 1.9 0.9 - 3.2 x10(3)/mc L [facility] Monocyte % 9.4 % [facility] Monocyte Abs 1.1(H) 0.3 - 0.9 x10(3)/mc L [facility] Eos % 1.3 % [facility] Eosinophils Abs 0.2 0.0 - 0.4 x10(3)/mc L [facility] Basophil % 0.4 % [facility] Baso Absolute 0.0 0.0 - [...] Absolute 0.04 0.00 - 0.04 x10(3)/mc L [facility] Blood 10/31/2023 3:05 AM EDT 10/31/2023 3:13 AM EDT Narrative Resulting Agency Comment Spec In Lab Qamar Gallardo MD HEMATOLOGY ORDERABLE S [facility] [place] [address] * (ABNORMAL) Hemogram (10/31/2023 3:05 AM EDT) White Blood Cell 11.5(H) 4.0 - 9.5 x10(3)/ L [facility] Red Blood Cell 3.75(L) 4.00 - 5.21 x10(6)/[facility]OR[facility] Hemoglobin 12.6 11.7 - 15.5 [...] MEDICAL CENTER LABORATORY NRBC% auto 0.0 % [facility] NRBC Absolute 0.000 0.000 - 0.000 x10(3)/ L [facility] Blood 10/31/2023 3:05 AM EDT 10/31/2023 3:13 AM EDT Narrative Resulting Agency Comment Spec In Lab Qamar Gallardo MD HEMATOLOGY ORDERABLE S Performing Organization Address [facility] Co de Phone Number [facility] [place] [address] * (ABNORMAL) APTT (10/31/2023 3:05 AM EDT) [...] ES Performing Organization Address [facility] de Phone Number [facility] [place] [address] * (ABNORMAL) Prothrombin Time (10/31/2023 3:05 AM [...] ORDERABL ES Performing Organization Address [facility] Co de Phone Number [facility] [place] [address] * (ABNORMAL) Differential, Automated (10/31/2023 1:37 AM EDT) Pathologist [facility] Neutrophil % 71.1 % [facility] Neutrophil Absolute 7.53(H) 1.70 - 6.10 x10(3)/mc L [facility] Lymph % 18.0 % [facility] Lymphocytes Abs 1.9 0.9 - 3.2 x10(3)/ L [facility] Monocyte % 8.7 % [facility] Monocyte Abs 0.9 0.3 - 0.9 x10(3)/ L [facility] Eos % 1.6 % [facility] Eosinophils Abs 0.2 0.0 - 0.4 x10(3)/ L [facility] Basophil % 0.4 % [facility] Baso Absolute 0.0 0.0 - [...] HEMATOLOGY ORDERABLE S [facility] [place] [address] * (ABNORMAL) Hemogram (10/31/2023 1:37 AM EDT) [...] MEDICAL CENTER LABORATORY NRBC% auto 0.0 % [facility] NRBC Absolute 0.000 0.000 - 0.000 x10(3)/mc L [facility] Blood 10/31/2023 1:37 AM EDT 10/31/2023 1:46 AM EDT Narrative Resulting Agency Comment Spec In Lab Qamar Gallardo MD HEMATOLOGY ORDERABLE S [facility] [place] [address] * Phosphorus (10/31/2023 1:37 AM EDT) Phosphorus 3.2 2.5 - 4.5 mg/dL [facility] Blood 10/31/2023 1:37 AM EDT 10/31/2023 1:46 AM EDT Narrative Resulting Agency Comment Spec In Lab Rosa Cornejo MD CHEMISTRY ORDERABLE S Performing Organization Address City/[facility]/ZIP Co de Phone Number [facility] [place] [address] * Magnesium (10/31/2023 1:37 AM EDT) Pathologist [facility] Magnesium 0.83 0.69 - 1.07 mmol/L [facility] Blood 10/31/2023 1:37 AM EDT 10/31/2023 1:46 AM EDT Narrative Resulting Agency Comment Spec In Lab Rosa Cornejo MD CHEMISTRY ORDERABLE S Performing Organization Address [facility] Co de Phone Number [facility] [place] [address] * Basic Metabolic Panel (non-fasting) (10/31/2023 1:37 [...] CHEMISTRY ORDERABLE S [facility] [place] [address] * (ABNORMAL) Troponin (10/31/2023 1:37 AM EDT) Pathologist [facility] Troponin-T, High Sensitivity 329(H) <=14 ng/L [facility] [...] troponin value can be found in the [facility] Laboratory Test Catalog Troponin - [facility] Test Catalog Reference: Fourth Reardan Definition of Myocardial Infarction. Journal of the [employer] College of Cardiology 2018;72:5824-3470 Blood 10/31/2023 1:37 AM EDT 10/31/2023 1:46 AM EDT Narrative Resulting Agency Comment Spec In Lab Rosa Cornejo MD CHEMISTRY ORDERABLE S Performing Organization Address [facility]/ZIP Co de Phone Number [facility] [place] [address] * EKG 12 Lead (10/31/2023 1:20 AM EDT) Ventricular rate 52 BPM MUSE SYSTEM Atrial Rate 52 BPM MUSE SYSTEM P-R Interval 224 ms MUSE SYSTEM QRS Duration 108 ms MUSE SYSTEM Q-T Interval 544 ms MUSE SYSTEM QTC Calculated (Bezet) 505 ms MUSE SYSTEM Calculated P Bruno 90 degrees MUSE SYSTEM Calculated R Bruno -57 degrees MUSE SYSTEM Calculated T Bruno -63 degrees MUSE SYSTEM INTERPRETATION Sinus bradycardia with 1st degree A-V block Pulmonary disease pattern Left anterior fascicular block Moderate voltage criteria for LVH, may be normal variant ( R in aVL , Jachin product ) T wave abnormality, consider inferior ischemia T wave abnormality, consider anterolateral ischemia Prolonged QT Abnormal ECG When compared with ECG of 30-OCT-2023 22:40, No significant change was found Confirmed by Charles COFFMAN, Butch ([id number]) on 11/01/2023 8:58:03 PM MUSE SYSTEM 10/31/2023 1:20 AM EDT 11/01/2023 8:58 PM EDT Rosa Cornejo MD ECG ORDERABLES Performing Organization Address City/[facility]/ZIP Co de Phone Number MUSE SYSTEM * EKG 12 Lead (10/30/2023 10:40 PM EDT) Ventricular rate 55 BPM MUSE SYSTEM Atrial Rate 55 BPM MUSE SYSTEM P-R Interval 232 ms MUSE SYSTEM QRS Duration 102 ms MUSE SYSTEM Q-T Interval 520 ms MUSE SYSTEM QTC Calculated (Bezet) 497 ms MUSE SYSTEM Calculated P Bruno 75 degrees MUSE SYSTEM Calculated R Bruno -53 degrees MUSE SYSTEM Calculated T Bruno -57 degrees MUSE SYSTEM INTERPRETATION Sinus bradycardia [...] Chest One View (10/30/2023 10:10 PM EDT) [employer] WORKSTATION ID [id number] DH RAD Anatomical Region Laterality Modality Chest [...] and low lung volumes. Findings similar to client support consultant radiograph from CT 10/30/2023. Thank you for letting us participate in the care of this patient. ??If you are a health care provider and have any questions regarding this report, please contact the number below. ??For patients who have questions please contact the health cattle care worker that requested your imaging first. ? Electronically signed by: Wilson Mccartney MD, [facility] ([phone]), at 10/30/2023 10:32 PM Narrative 10/30/2023 10:32 [...] and low lung volumes. Findings similar to client support consultant radiograph from CT 10/30/2023. Thank you for letting us participate in the care of this patient. If youare a health care provider and have any questions regarding this report,please contact the number below. For patients who have questions please contactthe health cattle care worker that requested your imaging first. Rosa Cornejo MD IMG DX ORDERABLES * Green Tube HOLD (10/30/2023 10:05 PM EDT) [facility] Green Hold Sample in lab. [facility] Blood Venous Draw / Unknown 10/30/2023 10:05 PM EDT 10/30/2023 10:13 PM EDT Qamar Gallardo MD CHEMISTRY ORDERABLES [facility] [place] [address] * (ABNORMAL) Differential, Automated (10/30/2023 10:05 PM EDT) [facility] Neutrophil % 76.6 % [facility] Neutrophil Absolute 6.94(H) 1.70 - 6.10 x10(3)/mc L [facility] Lymph % 15.4 % [facility] Lymphocytes Abs 1.4 0.9 - 3.2 x10(3)/mc L [facility] Monocyte % 6.1 % [facility] Monocyte Abs 0.6 0.3 - 0.9 x10(3)/mc L [facility] Eos % 1.1 % [facility] Eosinophils Abs 0.1 0.0 - 0.4 x10(3)/mc L [facility] Basophil % 0.6 % [facility] Baso Absolute 0.0 0.0 - [...] HEMATOLOGY ORDERABLE S [facility] [place] [address] * (ABNORMAL) Hemogram (10/30/2023 10:05 PM EDT) White Blood Cell 9.0 4.0 - 9.5 x10(3)/mc L [facility] Platelet 211 145 - 357 x10(3)/mc L [facility] RDW Standard Deviation 53.6(H) 37.0 - 46.0 fL [facility] RDW coefficient of variation 14.6(H) 11.5 - 14.1 % [facility] Mean Platelet Volume 11.1 7.6 - 12.9 fL [facility] NRBC% auto 0.0 % [facility] NRBC Absolute 0.000 0.000 - 0.000 x10(3)/mc L [facility] Blood 10/30/2023 10:0 5 PM EDT 10/30/2023 10:12 PM EDT Narrative Resulting Agency Comment Spec In Lab Qamar Gallardo MD HEMATOLOGY ORDERABLE S Performing Organization Address [facility] Co de Phone Number [facility] [place] [address] * Hemoglobin A1c (10/30/2023 10:05 PM EDT) [...] Mellitus, Diabetes Care 2013; 36: Suppl. 1, S67-98 Estimated Average Glucose See note mg/dL [facility] Comment: Estimated Average Glucose not appropriate for patients over 70 years of age. Blood 10/30/2023 10:0 5 PM EDT 10/30/2023 10:12 PM EDT Narrative Resulting Agency Comment Spec In Lab Rosa Cornejo MD CHEMISTRY ORDERABLE S Performing Organization Address [facility] Co de Phone Number [facility] [place] [address] * Lipid Panel (Reflex Direct LDL) (10/30/2023 10:05 PM EDT) Cholesterol, Total 218 mg/dL [facility] Comment: Desirable: ? <200 mg/dL Borderline High: 200-239 mg/dL Higher: ?>yj=632 mg/dL Triglyceride 46 mg/dL [facility] Comment: Normal: ?<150 mg/dL Borderline High: 150-199 mg/dL High: ?200-499 mg/dL Very High: ? >tl=553 mg/dL HDL Cholesterol 64 mg/dL [facility] Comment: Females: High Risk: <50 mg/dL Males: High Risk: <40 mg/dL LDL Cholesterol 145 mg/dL [facility] Comment: Desirable: ? <100 mg/dL Above Desirable: 100-129 mg/dL Borderline High: 130-159 mg/dL High: ?160-189 mg/dL Very High: ? >jt=201 mg/dL Lipid Interpretation See Note [facility] [...] individuals with atherosclerotic cardiovascular disease (ASCVD)or LDL >tb=924 mg/dL, use a high-intensity statin (40-80 mg [...] ORDERABLE S Performing Organization Address [facility] Co de Phone Number [facility] [place] [address] * TSH Bulloch (10/30/2023 10:05 PM EDT) Thyroid Stimulating Hormone 3.35 0.27 - 4.20 mcIU/mL [facility] Comment: Reference Interval (mcIU/mL): Females: ??First Trimester: 0.23-3.88 ??Second Trimester: 0.22-3.90 ??Third Trimester: 0.44-4.66 Blood 10/30/2023 10:0 5 PM EDT 10/30/2023 10:12 PM EDT Narrative Resulting Agency Comment Spec In Lab Rosa Cornejo MD CHEMISTRY ORDERABLE S Performing Organization Address [facility]/ZIP Co de Phone Number [facility] [place] [address] * pro-Brain Natriuretic Peptide (10/30/2023 10:05 PM EDT) NT-proBNP 375 <=449 pg/mL [facility] Blood 10/30/2023 10:0 5 PM EDT 10/30/2023 10:12 PM EDT Narrative Resulting Agency Comment Spec In Lab Rosa Cornejo MD CHEMISTRY ORDERABLE S [facility] [place] [address] * (ABNORMAL) Comprehensive metabolic panel (non-fasting) (10/30/2023 10:05 PM EDT) Glucose 121 65 - 199 mg/dL [facility] [...] ORDERABLE S Performing Organization Address [facility]/ZIP Co de Phone Number [facility] [place] [address] * Phosphorus (10/30/2023 10:05 PM EDT) Phosphorus 3.3 2.5 - 4.5 mg/dL [facility] Blood 10/30/2023 10:0 5 PM EDT 10/30/2023 10:12 PM EDT Narrative Resulting Agency Comment Spec In Lab Rosa Cornejo MD CHEMISTRY ORDERABLE S Performing Organization Address [facility]/ZIP Co de Phone Number [facility] [place] [address] * Magnesium (10/30/2023 10:05 PM EDT) Magnesium 0.86 0.69 - 1.07 mmol/L [facility] Blood 10/30/2023 10:0 5 PM EDT 10/30/2023 10:12 PM EDT Narrative Resulting Agency Comment Spec In Lab Rosa Cornejo MD CHEMISTRY ORDERABLE S Performing Organization Address City/[facility]/ZIP Co de Phone Number [facility] [place] [address] * (ABNORMAL) Troponin (10/30/2023 10:05 PM EDT) [facility] Troponin-T, High Sensitivity 214(H) <=14 ng/L [facility] [...] troponin value can be found in the [facility] Test Catalog Troponin - [facility] Test Catalog Reference: Fourth Reardan Definition of Myocardial Infarction. Journal of the [employer] College [employer] Cardiology 2018;72:4226-9573 Blood 10/30/2023 10:0 5 PM EDT 10/30/2023 10:12 PM EDT Narrative Resulting Agency Comment Spec In Lab Rosa Cornejo MD CHEMISTRY ORDERABLE S [facility] [place] [address] * EKG 12 Lead (10/30/2023 8:21 PM EDT) [facility] Ventricular rate 49 BPM MUSE SYSTEM Atrial Rate 49 BPM MUSE SYSTEM P-R Interval 230 ms MUSE SYSTEM QRS Duration 96 ms MUSE SYSTEM Q-T Interval 526 ms MUSE SYSTEM QTC Calculated (Bezet) 475 ms MUSE SYSTEM Calculated P Bruno 98 degrees MUSE SYSTEM Calculated R Bruno -48 degrees MUSE SYSTEM Calculated T Bruno -51 degrees MUSE SYSTEM INTERPRETATION Sinus bradycardia [...] Oral, 2 TIMES DAILY, First dose on Aman 11/03/23 at 1030, Until Discontinued, Routine, Indication [...] 24 to 72 hours., Routine 1333 ([facility] Hold - Provider: Admin Adt - Reason: Transfer to a Procedural area)1548 ([facility] Unhold - Provider: Admin Adt) sodium chloride 0.9 % (flush) (BD PosiFlush Normal Saline 0.9) flush 5-20 mL 5-20 mL, Intravenous, EVERY 1 MIN PRN, Starting on 10/30/23 at 2208, Until Amna 11/03/23 at 1913, flush, Flush pertains to all indwelling lines. Flush per protocol found in the job aid using the link provided on this medication record., Routine 1333 ([facility] Hold - Provider: Admin Adt - Reason: Transfer to a Procedural area)1548 ([facility] Unhold - Provider: Admin Adt) documented in this encounter Additional Health Concerns Infection Onset Date Last Indicated Resolved Time Rule Out Respiratory 11/02/2023 11/02/2023 024 12:22 PM EDT Rule Out COVID-19 11/02/2023 11/02/2023 11/02/2023 12:22 PM EDT documented as of this encounter Care Teams Research Professional Relationship Specialty Start Date End Date Rosie Mathews MD [address] [place] [address] PCP - General Family Medicine 11/25/17 11/23/23 documented as of this encounter
--- OUTSIDE RECORDS SUMMARY | 2024-04-24 17:19 | XMS_ITS | Encounter Summary ---
Author Organization [facility] Address [facility] [place] [address] Care Team Providers Care Diamond Cleaner Name Role Phone Rosie Mathews MD Primary Care Provider [phone] Encounter Details Date Type Department Care Team (Late st Contact Info) Description 11/18/2023 Telephone Cardiology at [address] [phone] Cheryl Guzman MD [facility] [place] [address] Social History Tobacco Use Types Packs/Day Years Used Date Smoking Tobacco: Former Smokeless Tobacco: Never Alcohol Use Standard Drinks/Week Comments Not Currently 0 (1 standard drink = 0.6 oz pur e alcohol) [facility] Utilities Answer Date Recorded In the past 12 months has e electric, gas, oil, or water [employer] threatened to shut off services in your [...] Hospital Past Medical History: HTN HLD NSTEMI ([facility] 11/02, status-post revasc) Presenting Symptoms per OSH: Lyla Goodrich is a 83 y.o. woman who presents to [facility] with an episode of chest pain. Recent admission to [facility] with NSTEMI status-post PCI to the prox-RCA [...] today's values. 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 Recommend admission for observation to assess for [...] AM EDT Office Visit Cardiology at [address] [phone] Izaiah Meyer MD [facility] [place] [address] documented as of this encounter Visit Diagnoses Not on filedocumented in this encounter Care Teams Diamond Cleaner Relationship Specialty Start Date End Date Rosie Mathews MD [address] [place] [address] PCP - General Family Medicine 11/25/17 11/23/23 documented as of this encounter
--- OUTSIDE RECORDS SUMMARY | 2024-04-24 17:19 | XMS_ITS | Encounter Summary ---
Author Organization [facility] Address [facility] [place] [address] Care Team Providers Care Banquet Chef Name Role Phone Masood Pierson MD Primary Care Provider [phone] Encounter Details Date Type Department Care Team (Late st Contact Info) Description 02/24/2024 11:10 PM EDT Ancillary Procedure Radiology [facility] at [facility] [place] [phone] Masood Pierson MD [address] [place], [place] [id number] Social History Tobacco Use Types Packs/Day Years Used Date Smoking Tobacco: Former Smokeless Tobacco: Never Alcohol Use Standard Drinks/Week Comments Not Currently 0 (1 standard drink = 0.6 oz pur e alcohol) [facility] Utilities Answer Date Recorded In [...] a senior care (including now)? No 11/01/2023 IPV Inpatient Questions [...] 11:00 AM EDT Office Visit Cardiology at [address] [place] [address] Izaiah Meyer MD [facility] [place] [place] [address] documented as of this encounter Procedures Procedure [...] IMG FILM LIBRARY ORD ERABLES [facility] [place], [place] documented in this encounter Visit Diagnoses Not on filedocumented in this encounter Care Teams Banquet Chef Relationship Specialty Start Date End Date Masood Pierson MD [address] [place] [address] PCP - General Family Medicine 11/24/23 documented as of this encounter
--- OUTSIDE RECORDS SUMMARY | 2024-04-24 17:19 | XMS_ITS | Encounter Summary ---
Author Organization [facility] Address [facility] [place] [address] Care Team Providers Care Convenience Recycle Center Tech Name Role Phone Masood Pierson MD Primary Care Provider [phone] Encounter Details Date Type Department Care Team (Latest Contact Info) Description 11/24/2023 Travel Social History Tobacco Use Types Packs/Day Years Used Date Smoking Tobacco: Former Smokeless Tobacco: Never Alcohol Use Standard Drinks/Week Comments Not Currently 0 (1 standard drink = 0.6 oz pur e alcohol) [facility] Utilities Answer Date Recorded [...] 11:00 AM EDT Office Visit Cardiology at [address] [place] [address] Izaiah Meyer MD [facility] [place] [address] documented as of this encounter Visit Diagnoses Not on filedocumented in this encounter Care Teams Convenience Recycle Center Tech Relationship Specialty Start Date End Date Masood Pierson MD [address] [place] [address] PCP - General Family Medicine 11/24/23 documented as of this encounter
--- OUTSIDE RECORDS SUMMARY | 2024-04-24 17:19 | XMS_ITS | Encounter Summary ---
Author Organization [facility] Address [facility] [place] [address] Care Team Providers Care Development And Planning Engineer Name Role Phone Rosie Mathews MD Primary Care Provider [phone] Encounter Details Date Type Department Care Team (Late st Contact Info) Description 11/18/2023 External Results Administration [facility] [place] [address] Social History Tobacco Use Types Packs/Day Years [...] 11:00 AM EDT Office Visit Cardiology at [address] [phone] Izaiah Meyer MD [facility] [place] [address] documented as of this encounter Procedures Procedure Name Priority Date/Time Associated Diagnosis Comments ECG SCAN Routine 11/18/2023 4:50 PM EDT documented in this encounter Results * Scan Doc: ECG (11/18/2023 4:50 PM EDT) Historical Provider MEDIA MGR SCAN EX T ORDR/RSLT documented in this encounter Visit Diagnoses Not on filedocumented in this encounter Care Teams Development And Planning Engineer Relationship Specialty Start Date End Date Rosie Mathews MD [address] [place] [address] PCP - General Family Medicine 11/25/17 11/23/23 documented as of this encounter
--- OUTSIDE RECORDS SUMMARY | 2024-04-24 17:20 | XMS_ITS | Encounter Summary ---
Author Organization [facility] [place] [address] Care Team Providers Care Sales Assistant Displays Name Role Phone Rosie Mathews MD Primary Care Provider [phone] Reason for Visit * Auth/Cert (Routine) Specialty Diagnoses / Procedures Referred By Contbruce t Referred To Contact Diagnoses Unstable angina Chest pain NSTEMI Procedures CARDIAC CATHETERIZATION Rosa Dewey MD [facility] [place] [address] [facility] Referral ID Status Reason Start Date Expiration Date Visits Re quested Visits Authorized [id number] 1 1 Encounter Details Date Type Department Care Team (Late st Contact Info) Description 11/01/2023 3:33 PM EDT - 11/01/2023 5:03 PM [place] [address] Rosa Dewey MD [facility] [address] [place], [place] [id number] CARDIAC CATHETERIZATION Social History Tobacco Use Types [...] for hypertension and hyperlipidemia who presented to [facility] as a transfer from [facility] as a possible STEMI alert with acute onset chest pain. The patient reports that her symptoms initially began on Tuesday when she was walking to [facility] and experienced bilateral arm heaviness while walking with no other symptoms. Then, this afternoon shereports developing bilateral achy shoulder pain and nonradiating substernal left-sided chest pressure that was 7/10 in severity after coming home from scientology. The patient denies any associated fevers, chills, [...] on repeat, her TRU resolved. Cardiology at [facility] was consulted for transfer; the patient was loaded with aspirin 324 mg and ticagrelor 180 mg, started on a heparin drip, and given nitroglycerin with improvement in chest pain. Upon arrival to [facility], the patient was taken directly to the Shoe Dyer. Two lesions were discovered: one in the prox RCA (felt to almost be a LAW FIRM ADMINISTRATOR but they were able to wire, balloon, [...] administered prior to arrival in the laboratory technical specialist. Recommended anti-platelet/anti-thrombotic regimen: Continue aspirin 81 mg [...] and low lung volumes. Findings similar to yard inspector radiograph from CT 10/30/2023. Pending Studies and [...] 10:40 AM Izaiah Meyer MD Cardiology at [place] Arrive at: [facility] [address] [phone] Future Orders Complete By Expires Referral to Cardiac Rehab [[id number] Custom] As directed Process Instructions: If no progress note charted, please enter Clinical details in comments. Scheduling Instructions: Questions: My question or request is: STEMI. Cardiac rehab at [facility]. Referral to Home Health [[id number] Custom] As directed Process Instructions: If no progress note charted, please enter Clinical details in comments. Scheduling Instructions: Comments: Please evaluate Adin Santos for admission to Home Health. [address] [facility] [address] (home) Date of : 1940 Inpatient DOCUMENTATION FOR VNA SERVICES (INCLUDING THOSE PATIENTS WITH MEDICARE COVERAGE REQUIRING HOME VNA SERVICES AND/OR HOSPICE SERVICES) PATIENT'S LOCATION: Adin Santos [address] [facility] [address] (home) Cell: Telephone Information: Poly Area Supervisor's Name: self In discussion with the attending physician, it is certified that this patient is under their care and that they, or a Nurse Practitioner, Clinical Nurse specialist or Physician Roustabout Crew who is working directly with them, had [...] regarding health issues HOME HEALTH CARE AGENCY: [facility] [address] [address] START OF CARE: within 24-48 hours of [...] MD [address] / [facility] [address] . All A agencies which cover [...] MD / Dr. Masood Pierson [address] [place] [address] 11/09/23 1:55 PM arrival for 2:10 PM appointment Wire Photo Operator News: Izaiah Meyer MD [address] [place] [id number] , 11/24/2023 10:40 AM Your Inpatient Medical Team at [facility] Name(s) of your inpatient provider(s): Attending physician: Rosa Hugo MD Resident physicians: Emile Robles MD; Elmer Tamez MD If you have non-emergent questions, prior to your follow-up visit call: Tuesday-Tuesday between the hours of 8AM-5PM please call the Cardiology Clinic [phone] to speak with a nurse. All other hours please call the Hospital Library Services Coordinator [phone] and ask to speak to the commodities requirements analyst on-call. Your Primary Care Provider Rosie Mathews MD [phone] For questions regarding this document or issues relating to this hospitalization on the Medical Service, please contact your inpatient physician through the [facility] Library Services Coordinator . Issues afterhours and on weekends will be handled by the Wire Photo Operator News staff on-call. Associated attestation - Rosa Hugo [...] MD / Dr. Masood Pierson [address] [place] [address] 11/09/23 1:55 PM arrival for 2:10 PM appointment Wire Photo Operator News: Izaiah Meyer MD [address] [place] [address] , 11/24/2023 10:40 AM Your Inpatient Medical Team at [facility] Name(s) of your inpatient provider(s): Attending physician: Rosa Hugo MD Resident physicians: Emile Robles MD; Elmer Tamez MD If you have non-emergent questions, prior to your follow-up visit call: Tuesday-Tuesday between the hours of 8AM-5PM please call the Cardiology Clinic [phone] to speak with a nurse. All other hours please call the Hospital Library Services Coordinator [phone] and ask to speak to the commodities requirements analyst on-call. Your Primary Care Provider Rosie Mathews MD [phone] documented in this encounter Medications at Time [...] for hypertension and hyperlipidemia who presented to [facility] as a transfer from [facility] [...] for hypertension and hyperlipidemia who presented to [facility] as a transfer from [facility] [...] Resident on Cardiology Service Cardiology S1 (Pager [phone]) Note written in conjunction with Claudio Perla [facility] Medical Student, MS3 Associated attestation - Rosa [...] Nirmala Webb - 11/01/2023 11:25 AM EDT Moving Consultant Encounter Note Patient Name: Adin Santos : [id number] MR#: [id number] Admit Date: 10/30/2023 5:11 PM Hospital Day 2 days Narrative: Self initiated visit to patient for Spiritual support in a regular unit rounds. Assessment: Patient is in the bathroom at the time of this visit. Not a good time for Automotive Title Clerk visit. Intervention and Outcome: An attempted [...] for hypertension and hyperlipidemia who presented to [facility] as a transfer from [facility] [...] and low lung volumes. Findings similar to yard inspector radiograph from CT 10/30/2023. Scheduled Medications: [AUG [...] for hypertension and hyperlipidemia who presented to [facility] as a transfer from [facility] [...] Resident on Cardiology Service Cardiology S1 (Pager [phone]) Note written in conjunction with Claudio Perla [facility] Medical Student, MS3 Associated attestation - Rosa [...] for hypertension and hyperlipidemia who presented to [facility] as a transfer from [facility] as a possible STEMI alert with acute onset chest pain. Active Problems: Active Hospital Problems Diagnosis Unstable angina Resolved Hospital Problems No resolved problems to display. 24 hr events: - Cath'd yesterday with lesion in the proximal RCA (initially thought it was LAW FIRM ADMINISTRATOR but they were ableto wire, balloon and [...] and low lung volumes. Findings similar to yard inspector radiograph from CT 10/30/2023. TTE (10/30): Interpretation [...] for hypertension and hyperlipidemia who presented to [facility] as a transfer from [facility] [...] Resident on Cardiology Service Cardiology S1 (Pager [phone]) Note written in conjunction with Claudio Perla [facility] Medical Student, MS3 Associated attestation - Rosa [...] PCP: Rosie Mathews MD PCP phone number: [phone] Date of Admission: 10/30/2023 ( Hospital Day 0 days ) Attending:Rosa Cornejo MD ID: Adin Santos is a 83 y.o. female PMH significant for hypertension and hyperlipidemia who presented to [facility] as a transfer from [facility] as a possible STEMI alert with acute onset chest pain. The patient reports that her symptoms initially began on Tuesday when she was walking to [facility] and experienced bilateral arm heaviness while walking with no other symptoms. Then, this afternoon shereports developing bilateral achy shoulder pain and nonradiating substernal left-sided chest pressure that was 7/10 in severity after coming home from scientology. The patient denies any associated fevers, chills, [...] on repeat, her TRU resolved. Cardiology at [facility] was consulted for transfer; the patient was loaded with aspirin 324 mg and ticagrelor 180 mg, started on a heparin drip, and given nitroglycerin with improvement in chest pain. Upon arrival to [facility], the patient was taken directly to the [facility] D[facility]. Two lesions were discovered: one in the prox RCA (felt to almost be a LAW FIRM ADMINISTRATOR but they were able to wire, balloon, [...] in [place] making tools such as screwdrivers and [...] and low lung volumes. Findings similar to yard inspector radiograph from CT 10/30/2023. Assessment & Plan: Adin Santos is a 83 y.o. female PMH significant for hypertension and hyperlipidemia who presented to [facility] a [facility] [...] HLD transferred with chest from [facility]. BP 217/68, HR [address] [...] information for follow-up Home Health & Hospice, [place] [address] TANESHA BOYCE confirmed with [facility] that they will see the patient within 24-48 hours of discharge for start of care. Transportation: family or friend will provide Wheelchair van/Ambulance? No Functional status prior to admission: Assistive Equipment Home Environment: Others in the home: alone. Current Living Arrangements: home/apartment/condo. Accessibility Concerns[place]1st floor [place] [facility] [place]; handicapped accessible. Current Functional Ability: Assistive Equipment DME used at home: cane - straight, grab bar - tub/shower, grab bar - toilet, raised toilet seat DME Needed at Discharge: N/A Patient is insured through: Primary Insurance: [employer] MANAGED MEDICARE Payor: [employer] MANAGED MEDICARE / Plan: [employer] MANAGED MEDICARE PPO / Product Type: *No [...] the room. Electrolytes replaced, see MAR. lab technician sites remained C/D/I with baseline ecchymosis unchanged. Pt complained of back pain, lidocaine patch given. Right IV infiltrated during infusion, patient is marked with sharpie, IV removed. See flowsheet for I+O's and safety rounding. Patient is able to make needs known and call capps within reach. PLAN MOVING FORWARD: Monitor Tele, control BP, monitor laboratory technical specialist sites, D/C Planning INDIVIDUALIZED FALL PREVENTION INTERVENTIONS: [...] outpatient cardiac rehabilitation program at [facility] was discussed. Patient agrees to a referral [...] above on RA. PT went to laboratory technical specialist today. Left fem site oozed throughout shift, [...] FORWARD: Monitor Tele, control BP, monitor laboratory technical specialist sites, D/C Planning INDIVIDUALIZED FALL PREVENTION INTERVENTIONS: [...] Transfer from another hospital Location: [facility] Reason for Hospitalization: chest pain Covid Vaccination [...] receiving care in [place] must abide by [place] law. The hierarchy [...] Arrangements: home/apartment/condo. Accessibility Concerns:1st floor apartment [place] [facility] [place]; handicapped accessible. In the last 12 [...] has the electric, gas, oil, or water Executive Employers threatened to shut off services in your [...] toilet seat Home Address confirmed as: [address] [facility] [address] Social & Family Supports: All names listed below confirmed with patient as current and correct Extended Emergency Contact Information Primary Emergency Contact: Iris Downing Address: [address] [place], [place] [address] [place] [address] Mobile Relation: Child Secondary Emergency Contact: Karen [...] Specific Information: N/A Health/Prescription Coverage: Primary Insurance: [employer] MANAGED MEDICARE Payor: [employer] MANAGED MEDICARE / Plan: [employer] MANAGED MEDICARE PPO / Product Type: *No Product type* / Secondary Insurance: N/A Prescription Coverage: Yes Preferred Pharmacy: [id number] - [place], [place] - [address] [place] [id number] [place] Status: Patient is a : No Primary Care Provider listed: Masood Pierson MD [phone] Patient/Caregiver Goals of Treatment: home when MR Potential Needs for Transition of Care: home health care Agency Referrals: Not Applicable I have met with the patient to: discuss discharge planning needs. provide the [facility], Office of Care Management letter from the Forging Engineer pertaining to rehab referrals. provide a letter describing our affiliations within the [facility] and educate about their right to choose where referrals are sent. provide a list of Home Health Agencies / Durable Medical Equipment vendors which serve their preferred geographic area. provided patient with [facility] Star Quality Rating handout. They have requested referrals to: [facility] [address] [place] [address] Note routed to a Pallet Repairer who will communicate referrals to facilities and [...] PO hydralazine added for BP control. lab technician sites remain C/D/I, ecchymosis unchanged th roughout shift. See flowsheet for I+O's and safety rounding. Patient is able to make needs known and call capps within reach. PLAN MOVING FORWARD: Monitor Tele, control CP and BP, NPO at MD for cath, monitor laboratory technical specialist sites, D/C Planning INDIVIDUALIZED FALL PREVENTION INTERVENTIONS: [...] AM EDT Office Visit Cardiology at [address] [place] [address] Izaiah Meyer MD [facility] [place] [address] Scheduled Referrals Name Type Priority Associated Diagnoses [...] Absolute 5.28 1.70 - 6.10 x10(3)/mc L [facility] Lymph % 15.2 % [facility] Lymphocytes Abs 1.3 0.9 - 3.2 x10(3)/mc L [facility] Monocyte % 16.9 % [facility] Monocyte Abs 1.4(H) 0.3 - 0.9 x10(3)/ L [facility] Eos % 3.7 % [facility] Eosinophils Abs 0.3 0.0 - 0.4 x10(3)/ L [facility] Basophil % 0.5 % [facility] Baso Absolute 0.0 0.0 - 0.1 x10(3)/mc L [facility] Immature Gran % 0.40 % [facility] Comment: Immature granulocytes(IG's)percentage and absolute count will include metamyelocytes, myelocytes, and promyelocytes. Blood smears from CBCs yielding IG's will be scanned manually for concordance. If this scan disagrees with the automated IG or if promyelocytes are noted, a manual differential will be performed. Immature Gran Absolute 0.03 0.00 - 0.04 x10(3)/mc L [facility] Blood 11/03/2023 3:46 AM EDT 11/03/2023 4:11 AM EDT Narrative Resulting Agency Comment Spec In Lab Qamar Gallardo MD HEMATOLOGY ORDERABLE S [facility] [place] [address] * (ABNORMAL) Hemogram (11/03/2023 3:46 AM EDT) White Blood Cell 8.3 4.0 - 9.5 x10(3)/mc L [facility] Red Blood Cell 3.77(L) 4.00 - 5.21 x10(6)/mc L [facility] Hemoglobin 13.1 11.7 - 15.5 g/dL [facility] Hematocrit 38.0 35.7 - 45.8 % [facility] Mean Cell Volume 100.8(H) 82.6 - 94.4 fL [facility] Mean Cell Hemoglobin 34.7(H) 27.1 - 32.0 pg [facility] Mean Cell Hemoglobin Concentration 34.5 31.7 - 35.0 g/dL [facility] Platelet 181 145 - 357 x10(3)/mc L [facility] RDW Standard Deviation 54.7(H) 37.0 - 46.0 fL [facility] RDW coefficient of variation 14.6(H) 11.5 - 14.1 % [facility] Mean Platelet Volume 11.2 7.6 - 12.9 fL [facility] NRBC% auto 0.0 % [facility] NRBC Absolute 0.000 0.000 - 0.000 x10(3)/mc L [facility] Blood 11/03/2023 3:46 AM EDT 11/03/2023 4:11 AM EDT Narrative Resulting Agency Comment Spec In Lab Qamar Gallardo MD HEMATOLOGY ORDERABLE S Performing Organization Address City/[facility]/ZIP Co de Phone Number [facility] [place] [address] * Phosphorus (11/03/2023 3:46 AM EDT) Pathologist [facility] Phosphorus 3.2 2.5 - 4.5 mg/dL [facility] Comment:result rechecked-KS Blood 11/03/2023 3:46 AM EDT 11/03/2023 4:11 AM EDT Narrative Resulting Agency Comment Spec In Lab Rosa Cornejo MD CHEMISTRY ORDERABLE S Performing Organization Address [facility] Co de Phone Number [facility] [place] [address] * Magnesium (11/03/2023 3:46 AM EDT) [facility] Magnesium 0.90 0.69 - 1.07 mmol/L [facility] Blood 11/03/2023 3:46 AM EDT 11/03/2023 4:11 AM EDT Narrative Resulting Agency Comment Spec In Lab Rosa Cornejo MD CHEMISTRY ORDERABLE S Performing Organization Address [facility] Co de Phone Number [facility] [place] [address] * (ABNORMAL) Basic Metabolic Panel (non-fasting) (11/03/2023 3:46 AM EDT) Pathologist [facility] Glucose 105 65 - 199 mg/dL [facility] Comment:Diabetes: >=200 mg/d L plus symptoms Blood Urea Nitrogen 13 8 - 18 mg/dL [facility] Creatinine 0.83 0.70 - 1.20 mg/dL [facility] Sodium 139 135 - 145 mmol/L [facility] Potassium 4.0 3.5 - 5.0 mmol/L [facility] Comment: Please note: ??Patients with WBC >100,000 may have falsely elevated Potassium levels. ??For accurate Potassium quantification in these patients send serum separator tube (gold top) for subsequent determinations. ??Contact the Clinical Chemistry Laboratory if there are any questions. Chloride 108(H) 98 - 107 mmol/L [facility] Carbon Dioxide 19(L) 22 - 31 mmol/L [facility] Anion Gap 12 5 - 15 mmol/L [facility] Calcium 8.2(L) 8.5 - 10.5 mg/dL [facility] Est Glomerular Filtration Rate 69 >=60 mL/min/1. 73 m?? [facility] Comment: This patient's estimated GFR [...] Lab Rosa Cornejo MD CHEMISTRY ORDERABLE S [facility] [place] [address] * EKG 12 Lead (11/02/2023 12:44 PM [...] 22:10, Premature atrial complexes are now Present DE interval has increased Vent. rate has decreased [...] specimen volume Bacteria, Urine Many(A) None /HPF [facility] Squamous Epithelial Cells Raw Data, Urine 10(H) <=4 /HPF [facility] Hyaline Casts, Urine 2 0 - 2 /LPF [facility] Comment: Interpret results with caution, microscopic results are from suboptimal specimen volume Clean Catch Urine 11/02/2023 11:40 AM EDT 11/02/2023 12:05 PM EDT Narrative Resulting Agency Comment Spec In Lab Elmer Tamez MD URINE ORDERABLES [facility] [place] [address] * (ABNORMAL) Urinalysis with reflex Culture (11/02/2023 11:40 AM EDT) Glucose, Urine Dipstick Negative Negative mg/dL [facility] Protein, Urine Dipstick 30(A) Negative mg/dL [facility] Bilirubin, Urine Dipstick Negative Negative mg/dL [facility] Comment: Clinical correlation required for positive Urine Bilirubin results as false positive may occur with some drugs and drug related products. If a false positive is suspected a serum total bilirubin should be considered if clinically indicated. Urobilinogen, Urine Dipstick Normal Normal mg/dL [facility] pH, Urn (dipstick) 5.5 5.0 - 8.0 [facility] Blood, Urine Dipstick Negative Negative mg/dL [facility] Ketone, Urine Dipstick Trace(A) Negative mg/dL [facility] Nitrite, Urine Dipstick Positive(A) Negative [facility] Leukocytes, Urine Dipstick Small(A) Negative [facility] Appearance, Urine Dipstick Cloudy(A) Clear [facility] Specific Chrisman Urine Automated >=1.030(A) 1.005 - 1.030 [facility] Color, Urine Dipstick Dark Yellow Yellow [facility] Reflex to Culture Yes [facility] Clean Catch Urine 11/02/2023 11:40 AM EDT 11/02/2023 12:04 PM EDT Narrative Resulting Agency Comment Spec In Lab Rosa Hugo MD URINE ORDERABLES Performing Organization Address City/State/[facility] Co de Phone Number [facility] [place] [address] * Respiratory Panel PCR (11/02/2023 10:15 AM EDT) Respiratory Panel Source SENIOR PRODUCT ANALYST Swab [facility] Respiratory Panel PCR Negative Negative [facility] Comment: Respiratory Panels are performed on the Modabound, using multiplexed PCR nucleic acid detection. ??Negative results do not preclude respiratory infection and should not be used as the sole basis for diagnosis, treatment or other management decisions. Adenovirus Not Detected Not Detected [facility] Coronavirus HKU1 Not Detected Not Detected [facility] Coronavirus NL63 Not Detected Not Detected [facility] Coronavirus 229E Not Detected Not Detected [facility] Coronavirus OC43 Not Detected Not Detected [facility] SARS-CoV-2 Not Detected Not Detected [facility] Comment: Testing for SARS-CoV-2 (Severe acute respiratory syndrome coronavirus 2) to aid in the diagnosis of COVID-19 is performed using the BioFire Respiratory Panel 2.1 ([employer]m) as authorized by the FDA issued Emergency Use Authorization (EUA). This panel also tests for multiple other viral and bacterial pathogens. This assay is intended for In-vitro Diagnostic (IVD) use with nasopharyngeal swabs in viral transport media. The assay is performed based on the instructions for use and additional guidance provided by the FDA. Testing is performed in laboratories within the [facility], each of which is certified under [...] fact sheets at the following FDA website: https://www.fda.gov/medical-devices/rkmensgbfuv-xmuavjs-7477-ynpxa-24-chvhhzepu- use-a mgwdkmtlxqtud-brmnjok-mzgugvp/sfdcw-rktfhxcomlg-ynah Human Metapneumovirus Not Detected Not Detected [facility] Human Rhinovirus/Enterov irus Not Detected Not Detected [facility] Influenza A Not Detected Not Detected [facility] Influenza B Not Detected Not Detected [facility] Parainfluenza 1 Not Detected Not Detected [facility] Parainfluenza 2 Not Detected Not Detected [facility] Parainfluenza 3 Not Detected Not Detected [facility] Parainfluenza 4 Not Detected Not Detected [facility] Respiratory Syncytial Virus Not Detected Not Detected [facility] Chlamydophila pneumoniae Not Detected Not Detected [facility] Mycoplasma pneumoniae Not Detected Not Detected [facility] Nasopharyngeal Swab 11/02/19 10:15 AM EDT 11/02/2023 10:49 AM EDT Narrative Resulting Agency Comment Spec In Lab Rosa Hugo MD MICROBIOLOGY - GEN ERAL ORDERABLES [facility] [place] [address] * XR Chest One View (11/02/2023 2:51 AM EDT) WORKSTATION ID [id number] RAD Anatomical Region Laterality Modality Chest N/A [...] have questions please contact the health manager long term care that requested your imaging first. ? Electronically signed by: Omaira Tran MD, [facility] ([phone]), at 11/02/2023 4:56 AM Narrative 11/02/2023 4:56 [...] who have questions please contactthe health manager long term care that requested your imaging first. Electronically signed by: Omaira Tran MD, [facility]([phone]), at 11/02/2023 4:56 AM Rosa Hugo MD IMG DX ORDERABLES * (ABNORMAL) Differential, Automated (11/02/2023 12:35 AM EDT) Neutrophil % 76.5 % [facility] Neutrophil Absolute 7.69(H) 1.70 - 6.10 x10(3)/mc L [facility] Lymph % 8.3 % [facility] Lymphocytes Abs 0.8(L) 0.9 - 3.2 x10(3)/mc L [facility] Monocyte % 12.9 % [facility] Monocyte Abs 1.3(H) 0.3 - 0.9 x10(3)/mc L [facility] Eos % 1.4 % [facility] Eosinophils Abs 0.1 0.0 - 0.4 x10(3)/mc L [facility] Basophil % 0.4 % [facility] Baso Absolute 0.0 0.0 - 0.1 x10(3)/mc L [facility] Immature Gran % 0.50 % [facility] Comment: Immature granulocytes(IG's)percentage and absolute count will include metamyelocytes, myelocytes, and promyelocytes. Blood smears from CBCs yielding IG's will be scanned manually for concordance. If this scan disagrees with the automated IG or if promyelocytes are noted, a manual differential will be performed. Immature Gran Absolute 0.05(H) 0.00 - 0.04 x10(3)/mc L [facility] Blood 11/02/2023 12:3 5 AM EDT 11/02/2023 12:43 AM EDT Narrative Resulting Agency Comment Spec In Lab Qamar Gallardo MD HEMATOLOGY ORDERABLE S [facility] [place] [address] * (ABNORMAL) Hemogram (11/02/2023 12:35 AM EDT) White Blood Cell 10.0(H) 4.0 - 9.5 x10(3)/ L [facility] Red Blood Cell 4.06 4.00 - 5.21 x10(6)/mc L [facility] Hemoglobin 13.8 11.7 - 15.5 g/dL [facility] Hematocrit 39.8 35.7 - 45.8 % [facility] Mean Cell Volume 98.0(H) 82.6 - 94.4 fL [facility] Mean Cell Hemoglobin 34.0(H) 27.1 - 32.0 pg [facility] Mean Cell Hemoglobin Concentration 34.7 31.7 - 35.0 g/dL [facility] Platelet 198 145 - 357 x10(3)/mc L [facility] RDW Standard Deviation 52.1(H) 37.0 - 46.0 fL [facility] RDW coefficient of variation 14.3(H) 11.5 - 14.1 % [facility] Mean Platelet Volume 11.4 7.6 - 12.9 fL [facility] NRBC% auto 0.0 % [facility] NRBC Absolute 0.000 0.000 - 0.000 x10(3)/mc L [facility] Blood 11/02/2023 12:3 5 AM EDT 11/02/2023 12:43 AM EDT Narrative Resulting Agency Comment Spec In Lab Qamar Gallardo MD HEMATOLOGY ORDERABLE S [facility] [place] [address] * (ABNORMAL) Phosphorus (11/02/2023 12:35 AM EDT) Phosphorus 1.6(L) 2.5 - 4.5 mg/dL [facility] Blood 11/02/2023 12:3 5 AM EDT 11/02/2023 12:43 AM EDT Narrative Resulting Agency Comment Spec In Lab Rosa Cornejo MD CHEMISTRY ORDERABLE S Performing Organization Address City/[facility]/ZIP Co de Phone Number [facility] [place] [address] * Magnesium (11/02/2023 12:35 AM EDT) Magnesium 0.87 0.69 - 1.07 mmol/L [facility] Blood 11/02/2023 12:3 5 AM EDT 11/02/2023 12:43 AM EDT Narrative Resulting Agency Comment Spec In Lab Rosa Cornejo MD CHEMISTRY ORDERABLE S Performing Organization Address City/[facility]/ZIP Co de Phone Number [facility] [place] [address] * Basic Metabolic Panel (non-fasting) (11/02/2023 12:35 AM EDT) Glucose 125 65 - 199 mg/dL [facility] Comment:Diabetes: >=200 mg/d L plus symptoms Blood Urea Nitrogen 9 8 - 18 mg/dL [facility] Creatinine 0.83 0.70 - 1.20 mg/dL [facility] Sodium 136 135 - 145 mmol/L [facility] Potassium 3.6 3.5 - 5.0 mmol/L [facility] Comment: Please note: ??Patients with WBC >100,000 may have falsely elevated Potassium levels. ??For accurate Potassium quantification in these patients send serum separator tube (gold top) for subsequent determinations. ??Contact the Clinical Chemistry Laboratory if there are any questions. Chloride 102 98 - 107 mmol/L [facility] Carbon Dioxide 25 22 - 31 mmol/L [facility] Anion Gap 9 5 - 15 mmol/L [facility] Calcium 9.0 8.5 - 10.5 mg/dL [facility] Est Glomerular Filtration Rate 69 >=60 mL/min/1. 73 m?? [facility] Comment: This patient's estimated GFR [...] Lab Rosa Cornejo MD CHEMISTRY ORDERABLE S [facility] [place] [address] * Blood culture (11/02/2023 12:35 AM EDT) Blood Culture No growth at 5 days. [facility] Blood 11/02/2023 12:3 5 AM EDT 11/02/2023 1:55 AM EDT Comment:#2 site ukn Narrative Resulting Agency Comment Spec In Lab Rosa Hugo MD MICROBIOLOGY - BLO OD ORDERABLES Performing Organization Address City/[facility]/ZIP Co de Phone Number [facility] [place] [address] * Blood culture (11/02/2023 12:15 AM EDT) Blood Culture No growth at 5 days. [facility] Blood 11/02/2023 12:1 5 AM EDT 11/02/2023 1:54 AM EDT Comment:#1site unk Narrative Resulting Agency Comment Spec In Lab Rosa Hugo MD MICROBIOLOGY - BLO OD ORDERABLES Performing Organization Address [facility] Co de Phone Number [facility] [place] [address] * EKG 12 Lead (11/01/2023 10:10 PM [...] interpretation Confirmed by fellow MD Bowen Ashley ([id number]) on 11/04/2023 7:57:50 AM Confirmed by MD Carrillo Danette ([id number]) on 11/04/2023 4:32:03 PM MUSE SYSTEM 11/01/2023 10:1 0 PM EDT 11/04/2023 4:32 PM EDT Rosa Cornejo MD ECG ORDERABLES [facility] * (ABNORMAL) Hemogram (11/01/2023 10:06 PM EDT) White Blood Cell 10.4(H) 4.0 - 9.5 x10(3)/mc L [facility] Red Blood Cell 4.11 4.00 - 5.21 x10(6)/mc L [facility] Hemoglobin 14.0 11.7 - 15.5 g/dL [facility] Hematocrit 41.1 35.7 - 45.8 % [facility] Mean Cell Volume 100.0(H) 82.6 - 94.4 fL [facility] Mean Cell Hemoglobin 34.1(H) 27.1 - 32.0 [facility] Mean Cell Hemoglobin Concentration 34.1 31.7 - 35.0 g/dL [facility] Platelet 197 145 - 357 x10(3)/mc L [facility] RDW Standard Deviation 54.0(H) 37.0 - 46.0 [facility] RDW coefficient of variation 14.6(H) 11.5 - 14.1 % [facility] Mean Platelet Volume 11.2 7.6 - 12.9 [facility] NRBC% auto 0.0 % [facility] NRBC Absolute 0.000 0.000 - 0.000 x10(3)/mc L [facility] Blood 11/01/2023 10:0 6 PM EDT 11/01/2023 10:22 PM EDT Narrative Resulting Agency Comment Spec In Lab Rosa Hugo MD HEMATOLOGY ORDERAB LES [facility] [place] [address] * POCT Glucose (11/01/2023 5:59 PM EDT) Glucose, POC 104 65 - 199 mg/dL [facility] Comment: Supplemental ranges: <140 mg/dL before meals <180 mg/dL all other times of the day Blood 11/01/2023 5:59 PM EDT 11/01/2023 5:59 PM EDT Rosa Hugo MD POINT OF CARE TEST ORDERABLES [facility] [place] [address] * POCT Glucose (11/01/2023 5:35 PM EDT) Glucose, POC 85 65 - 199 mg/dL [facility] Comment: Supplemental ranges: <140 mg/dL before meals <180 mg/dL all other times of the day Blood 11/01/2023 5:35 PM EDT 11/01/2023 5:35 PM EDT Rosa Hugo MD POINT OF CARE TEST ORDERABLES [facility] [place] [address] * EKG 12 Lead (11/01/2023 3:22 PM [...] Narrative 11/02/2023 4:57 PM EDT ?[facility] ? Cardiac Catheterization/Intervention Report ? Patient Name: Adin Santos. ? Procedure Date: 11/01/2023 ? A #: [id number] ? Primary Physician: Rosa Dewey I ? Case #: [id number] ? File Name: [id number] ? Catheterization Order Number: [id number] ? [facility] ? Final Report [place], [place] ? Patient Name: ? Adin M. Goguen ?ID#: ?[id number] ? : ?1940 ? Procedure Date: ? [...] as ASA Class III. The [facility] clinical ?frailty scale is 4: Vulnerable. ? [...] was Urgent. The indication for ?the laboratory technical specialist visit is ACS greater than 24 hrs. [...] premounted ? 3.50 x 15 mm Andrea Berkeley (RADHA) was deployed with a maximum ? [...] ? A premounted 3.50 x 15 mm Preston Berkeley (RADHA) was deployed ? with a maximum [...] administered prior to arrival in the laboratory technical specialist. ?Recommended anti-platelet/anti-thrombotic regimen: ?Continue aspirin 81 mg daily for indefinitely. ?Continue clopidogrel 75 mg daily for 12 months then stop. ?These recommendations are made at the time of the intervention. Patient ?and provider preferences or a changing clinical situation may require ?modification of this regimen. Consult [facility] Interventional Cardiology for ?questions. [...] Rosa Dewey MD - 12/12/2023 [facility] Cardiac Catheterization/Intervention Report Patient Name: Adin Santos Procedure Date: 11/01/2023 A #: [id number] Primary Physician: Rosa Dewey I Case #: [id number] File Name: [id number] Catheterization Order Number: [id number] [facility] FinalReport [place], [place] Patient Name: Adin Santos ID#:[id number] :1940 Procedure Date: November 01, 2023 Case [...] procedure was Urgent. The indicationfor the laboratory technical specialist visit is ACS greater than 24 hrs. [...] atmospheres. Apremounted 3.50 x 15 mm Andrea Berkeley (RADHA) was deployed with amaximum inflation pressure [...] The lesion was predilated with a 3.00mm [id number] MM balloon with a maximum inflation pressure of 14atmospheres. A premounted 3.50 x 15 mm Preston Berkeley (RADHA) wasdeployed with a maximum inflation pressure [...] administered prior to arrival in the laboratory technical specialist. Recommended anti-platelet/anti-thrombotic regimen: Continue aspirin 81 mg daily for indefinitely. Continue clopidogrel 75 mg daily for 12 months then stop. These recommendations are made at the time of the intervention.Patient and provider preferences or a changing clinical situation mayrequire modification of this regimen. Consult [facility] Interventional Cardiologyfor questions. The [...] Glucose, POC 93 65 - 199 mg/dL [facility] Comment: Supplemental ranges: <140 mg/dL before meals <180 mg/dL all other times of the day Blood 11/01/2023 7:06 AM EDT 11/01/2023 7:06 AM EDT Jean Laboy MD POINT OF CARE TEST O RDERABLES [facility] [place] [address] * (ABNORMAL) Differential, Automated (11/01/2023 3:09 AM EDT) Neutrophil % 63.9 % [facility] Neutrophil Absolute 5.54 1.70 - 6.10 x10(3)/mc L [facility] Lymph % 20.0 % [facility] Lymphocytes Abs 1.7 0.9 - 3.2 x10(3)/mc L [facility] Monocyte % 11.9 % [facility] Monocyte Abs 1.0(H) 0.3 - 0.9 x10(3)/ L [facility] Eos % 3.2 % [facility] Eosinophils Abs 0.3 0.0 - 0.4 x10(3)/ L [facility] Basophil % 0.5 % [facility] Baso Absolute 0.0 0.0 - 0.1 x10(3)/[facility] Immature Gran % 0.50 % [facility] Comment: Immature granulocytes(IG's)percentage and absolute count will include metamyelocytes, myelocytes, and promyelocytes. Blood smears from CBCs yielding IG's will be scanned manually for concordance. If this scan disagrees with the automated IG or if promyelocytes are noted, a manual differential will be performed. Immature Gran Absolute 0.04 0.00 - 0.04 x10(3)/[facility] Blood 11/01/2023 3:09 AM EDT 11/01/2023 3:29 AM EDT Narrative Resulting Agency Comment Spec In Lab Qamar Gallardo MD HEMATOLOGY ORDERABLE S [facility] [place] [address] * (ABNORMAL) Hemogram (11/01/2023 3:09 AM EDT) White Blood Cell 8.7 4.0 - 9.5 x10(3)/ L [facility] Red Blood Cell 3.72(L) 4.00 - 5.21 x10(6)/[facility] Hemoglobin 12.5 11.7 - 15.5 g/dL [facility] Hematocrit 36.8 35.7 - 45.8 % [facility] Mean Cell Volume 98.9(H) 82.6 - 94.4 fL [facility] Mean Cell Hemoglobin 33.6(H) 27.1 - 32.0 pg [facility] Mean Cell Hemoglobin Concentration 34.0 31.7 - 35.0 g/dL [facility] Platelet 184 145 - 357 x10(3)/mc L [facility] RDW Standard Deviation 53.5(H) 37.0 - 46.0 fL [facility] RDW coefficient of variation 14.6(H) 11.5 - 14.1 % [facility] Mean Platelet Volume 11.3 7.6 - 12.9 fL [facility] NRBC% auto 0.0 % [facility] NRBC Absolute 0.000 0.000 - 0.000 x10(3)/mc L [facility] Blood 11/01/2023 3:09 AM EDT 11/01/2023 3:29 AM EDT Narrative Resulting Agency Comment Spec In Lab Qamar Gallardo MD HEMATOLOGY ORDERABLE S [facility] [place] [address] * Phosphorus (11/01/2023 3:09 AM EDT) Phosphorus 2.5 2.5 - 4.5 mg/dL [facility] Blood 11/01/2023 3:09 AM EDT 11/01/2023 3:29 AM EDT Narrative Resulting Agency Comment Spec In Lab Rosa Cornejo MD CHEMISTRY ORDERABLE S [facility] [place] [address] * Magnesium (11/01/2023 3:09 AM EDT) Magnesium 0.82 0.69 - 1.07 mmol/L [facility] Blood 11/01/2023 3:09 AM EDT 11/01/2023 3:29 AM EDT Narrative Resulting Agency Comment Spec In Lab Rosa Cornejo MD CHEMISTRY ORDERABLE S [facility] [place] [address] * (ABNORMAL) Basic Metabolic Panel (non-fasting) (11/01/2023 3:09 AM EDT) Glucose 100 65 - 199 mg/dL [facility] Comment:Diabetes: >=200 mg/d L plus symptoms Blood Urea Nitrogen 14 8 - 18 mg/dL [facility] Creatinine 0.83 0.70 - 1.20 mg/dL [facility] Sodium 137 135 - 145 mmol/L [facility] Potassium 3.4(L) 3.5 - 5.0 mmol/L [facility] Comment: Please note: ??Patients with WBC >100,000 may have falsely elevated Potassium levels. ??For accurate Potassium quantification in these patients send serum separator tube (gold top) for subsequent determinations. ??Contact the Clinical Chemistry Laboratory if there are any questions. Chloride 105 98 - 107 mmol/L [facility] Carbon Dioxide 24 22 - 31 mmol/L [facility] Anion Gap 8 5 - 15 mmol/L [facility] Calcium 8.6 8.5 - 10.5 mg/dL [facility] Est Glomerular Filtration Rate 69 >=60 mL/min/1. 73 m?? [facility] Comment: This patient's estimated GFR [...] CHEMISTRY ORDERABLE S Performing Organization Address City/[facility]/ZIP Co de Phone Number [facility] [place] [address] * (ABNORMAL) Troponin (10/31/2023 2:46 PM EDT) Troponin-T, High Sensitivity 544(H) <=14 ng/L [facility] Comment: This patient's troponin T [...] value can be found in the [facility] Laboratory Test Catalog Troponin - [facility] Laboratory Test Catalog Reference: Fourth [place] Definition of Myocardial Infarction. Journal of the [place] [employer] 2018;72:3783-2823 Blood 10/31/2023 2:46 PM EDT 10/31/2023 2:55 PM EDT Narrative Resulting Agency Comment Spec In Lab Jean Laboy MD CHEMISTRY ORDERABLES Performing Organization Address City/[facility]/ZIP Co de Phone Number [facility] [place] [address] * EKG 12 Lead (10/31/2023 1:07 PM [...] [place] Troponin-T, High Sensitivity 580(H) <=14 ng/L [facility] Comment: This patient's troponin T [...] value can be found in the [facility] Laboratory Test Catalog Troponin - [facility] Laboratory Test Catalog Reference: Fourth [place] Definition of Myocardial Infarction. Journal of the [place] [employer] 2018;72:5828-3759 Blood 10/31/2023 11:3 7 AM EDT 10/31/2023 11:50 AM EDT Narrative Resulting Agency Comment Spec In Lab Rosa Cornejo MD CHEMISTRY ORDERABLE S Performing Organization Address City/State/[facility] Co de Phone Number [facility] [place] [address] * ECHO COMPLETE (10/31/2023 8:52 AM EDT) Anatomical Region Laterality Modality Cardiac Other 10/31/2023 7:57 AM EDT Narrative 10/31/2023 9:45 AM EDT [address] [place] [address] ? Echocardiogram Report Name: TREY SANTOSA Dorene ? Study Date: 10/31/2023 07:57 AMBP: 106/76 mmHg ? Patient Location: [address] : 1940 ? Height: 163 cm ? Account: [id number] Age: 83 yrs ? Weight: 76 kg Gender: Female ?BSA: 1.8 m2 Ordering Physician: ROSA DEWEY Referring Physician: OMAIRA GIRON Performed By: HAFSA Carmichael Reason For Study: STEMI Interpreting Fellow: [place] Warren. Exam Location: [facility]. Interpretation Summary -The left ventricle is of [...] is no prior echocardiogram for comparison. Procedure Complete-19479. Satisfactory quality. There is sinus bradycardia. Left [...] Procedure Note Edgard Wang MD - 10/31/[address] [place] [address] Echocardiogram Report Name: ADIN SANTOS Study Date: 407:57 AMBP: 106/76 mmHg Patient Location: [id number] : 1940 Height: 163 cm Account: [id number] Age: 83 yrs Weight: 76 kg Gender: Female BSA: 1.8 m2 Ordering Physician: ROSA DEWEY Referring Physician: OMAIRA GIRON Performed By: HAFSA Carmichael Reason For Study: STEMI Interpreting Fellow: [place] Warren. Exam Location: [facility]. Interpretation Summary -The left ventricle is of [...] is no prior echocardiogram for comparison. Procedure Complete-56538. Satisfactory quality. There is sinus bradycardia. Left [...] * (ABNORMAL) Troponin (10/31/2023 8:51 AM EDT) [facility] Troponin-T, High Sensitivity 571(H) <=14 ng/L [facility] Comment: This patient's troponin T [...] value can be found in the [facility] Laboratory Test Catalog Troponin - [facility] Laboratory Test Catalog Reference: Fourth [place] Definition of Myocardial Infarction. Journal of the [place] [employer] 2018;72:2595-9081 Blood 10/31/2023 8:51 AM EDT 10/31/2023 9:12 AM EDT Narrative Resulting Agency Comment Spec In Lab Rosa Cornejo MD CHEMISTRY ORDERABLE S Performing Organization Address City/State/[facility] Co de Phone Number [facility] [place] [address] * CARDIAC CATHETERIZATION (10/31/2023 8:10 AM EDT) Anatomical Region Laterality Modality Other Narrative 11/07/2023 9:42 AM EDT ?[facility] ? Cardiac Catheterization/Intervention Report ? Patient Name: Adin Santos ? Procedure Date: 10/30/2023 ? A #: [id number] ? Primary Physician: Rosa Dewey I ? Case #: [id number] ? File Name: [id number] ? Catheterization Order Number: [id number] ? [facility] ? Final Report [place], [place] ? Patient Name: ? Adin M. Goguen ?ID#: ?[id number] ? : ?1940 ? Procedure Date: ? [...] as ASA Class III. The [facility] clinical frailty scale ?is 5: Mildly Frail. [...] was Emergent. The indication for ?the laboratory technical specialist visit is ACS less than or equal [...] A premounted 4.00 x 38 mm Andrea Berkeley (RADHA) was deployed ? with a maximum [...] administered prior to arrival in the laboratory technical specialist. ?Recommended anti-platelet/anti-thrombotic regimen: ?Continue aspirin 81 mg daily for 12 months then stop. ?Continue clopidogrel 75 mg daily for indefinitely. ?These recommendations are made at the time of the intervention. Patient ?and provider preferences or a changing clinical situation may require ?modification of this regimen. Consult [facility] Interventional Cardiology for ?questions. [...] Rosa Dewey MD - 12/05/2023 [facility] Cardiac Catheterization/Intervention Report Patient Name: Adin Santos Procedure Date: 10/30/2023 A #: [id number] Primary Physician: Rosa Dewey I Case #: [id number] File Name: [id number] Catheterization Order Number: [id number] [facility] FinalReport [place], [place] Patient Name: Adin Santos ID#:[id number] :1940 Procedure Date: October 30, 2023 Case [...] as ASA Class III. The [facility] clinical frailtyscale is 5: Mildly Frail. Diagnostic Tests: Electrocardiography: EKG was assessed by ECG. EKG was Abnormal. EKG showed STDeviation >= 0.5 mm, other abnormality and dynamic EKG changes. Medications Prior to Procedure: Aspirin, Angiotensin II Receptor Rodrick, Beta Rodrick andStatin. Indications for Diagnostic Cath: The priority of the diagnostic procedure was Emergent. Theindication for the laboratory technical specialist visit is ACS less than or equal [...] priority for the procedure was Emergent.The [facility] indication for the procedure was [...] 16atmospheres. A premounted 4.00 x 38 mm Preston Berkeley (RADHA) wasdeployed with a maximum inflation pressure [...] administered prior to arrival in the laboratory technical specialist. Recommended anti-platelet/anti-thrombotic regimen: Continue aspirin 81 mg daily for 12 months then stop. Continue clopidogrel 75 mg daily for indefinitely. These recommendations are made at the time of the intervention.Patient and provider preferences or a changing clinical situation mayrequire modification of this regimen. Consult [facility] Interventional Cardiologyfor questions. Conclusions: [...] Hospital Troponin-T, High Sensitivity 457(H) <=14 ng/L [facility] Comment: This patient's troponin T [...] value can be found in the [facility] Laboratory Test Catalog Troponin - [facility] Laboratory Test Catalog Reference: Fourth [place] Definition of Myocardial Infarction. Journal of the [place] [employer] 2018;72:1272-0282 Blood 10/31/2023 4:21 AM EDT 10/31/2023 4:30 AM EDT Narrative Resulting Agency Comment Spec In Lab Rosa Cornejo MD CHEMISTRY ORDERABLE S Performing Organization Address City/State/[facility] Co de Phone Number [facility] [place] [address] * (ABNORMAL) Differential, Automated (10/31/2023 3:05 AM EDT) Neutrophil % 71.7 % [facility] Neutrophil Absolute 8.21(H) 1.70 - 6.10 x10(3)/mc L [facility] Lymph % 16.9 % [facility] Lymphocytes Abs 1.9 0.9 - 3.2 x10(3)/mc L [facility] Monocyte % 9.4 % [facility] Monocyte Abs 1.1(H) 0.3 - 0.9 x10(3)/mc L [facility] Eos % 1.3 % [facility] Eosinophils Abs 0.2 0.0 - 0.4 x10(3)/mc L [facility] Basophil % 0.4 % [facility] Baso Absolute 0.0 0.0 - 0.1 x10(3)/mc L [facility] Immature Gran % 0.30 % [facility] Comment: Immature granulocytes(IG's)percentage and absolute count will include metamyelocytes, myelocytes, and promyelocytes. Blood smears from CBCs yielding IG's will be scanned manually for concordance. If this scan disagrees with the automated IG or if promyelocytes are noted, a manual differential will be performed. Immature Gran Absolute 0.04 0.00 - 0.04 x10(3)/mc L [facility] Blood 10/31/2023 3:05 AM EDT 10/31/2023 3:13 AM EDT Narrative Resulting Agency Comment Spec In Lab Qamar Gallardo MD HEMATOLOGY ORDERABLE S [facility] [place] [address] * (ABNORMAL) Hemogram (10/31/2023 3:05 AM EDT) White Blood Cell 11.5(H) 4.0 - 9.5 x10(3)/ L [facility] Red Blood Cell 3.75(L) 4.00 - 5.21 x10(6)/mc L [facility] Hemoglobin 12.6 11.7 - 15.5 g/dL [facility] Hematocrit 37.1 35.7 - 45.8 % [facility] Mean Cell Volume 98.9(H) 82.6 - 94.4 fL [facility] Mean Cell Hemoglobin 33.6(H) 27.1 - 32.0 pg [facility] Mean Cell Hemoglobin Concentration 34.0 31.7 - 35.0 g/dL [facility] Platelet 206 145 - 357 x10(3)/mc L [facility] RDW Standard Deviation 53.4(H) 37.0 - 46.0 fL [facility] RDW coefficient of variation 14.6(H) 11.5 - 14.1 % [facility] Mean Platelet Volume 11.1 7.6 - 12.9 fL [facility] NRBC% auto 0.0 % [facility] NRBC Absolute 0.000 0.000 - 0.000 x10(3)/mc L [facility] Blood 10/31/2023 3:05 AM EDT 10/31/2023 3:13 AM EDT Narrative Resulting Agency Comment Spec In Lab Qamar Gallardo MD HEMATOLOGY ORDERABLE S Performing Organization Address [facility] Co de Phone Number [facility] [place] [address] * (ABNORMAL) APTT (10/31/2023 3:05 AM EDT) Partial Thromboplastin Time 67(H) 25 - 37 sec [facility] Comment: The PTT is NOT appropriate for heparin monitoring. Use the Anti-Xa level for heparin monitoring (HEP UFH) or LMWH monitoring (HEP LMW). A PTT less than 37 seconds generally indicates adequate hemostasis. Blood 10/31/2023 3:05 AM EDT 10/31/2023 3:13 AM EDT Narrative Resulting Agency Comment Spec In Lab Rosa Cornejo MD HEMATOLOGY ORDERABL ES Performing Organization Address [facility] Co de Phone Number [facility] [place] [address] * (ABNORMAL) Prothrombin Time (10/31/2023 3:05 AM EDT) Prothrombin Time 12.6(H) 9.4 - 12.5 sec [facility] International Normalization Ratio 1.1 [facility] Comment: An INR <2.0 indicates [...] Lab Rosa Cornejo MD HEMATOLOGY ORDERABL ES [facility] [place] [address] * (ABNORMAL) Differential, Automated (10/31/2023 1:37 AM EDT) Neutrophil % 71.1 % [facility] Neutrophil Absolute 7.53(H) 1.70 - 6.10 x10(3)/mc L [facility] Lymph % 18.0 % [facility] Lymphocytes Abs 1.9 0.9 - 3.2 x10(3)/ L [facility] Monocyte % 8.7 % [facility] Monocyte Abs 0.9 0.3 - 0.9 x10(3)/mc L [facility] Eos % 1.6 % [facility] Eosinophils Abs 0.2 0.0 - 0.4 x10(3)/ L [facility] Basophil % 0.4 % [facility] Baso Absolute 0.0 0.0 - 0.1 x10(3)/mc L [facility] Immature Gran % 0.20 % [facility] Comment: Immature granulocytes(IG's)percentage and absolute count will include metamyelocytes, myelocytes, and promyelocytes. Blood smears from CBCs yielding IG's will be scanned manually for concordance. If this scan disagrees with the automated IG or if promyelocytes are noted, a manual differential will be performed. Immature Gran Absolute 0.02 0.00 - 0.04 x10(3)/mc L [facility] Blood 10/31/2023 1:37 AM EDT 10/31/2023 1:46 AM EDT Narrative Resulting Agency Comment Spec In Lab Qamar Gallardo MD HEMATOLOGY ORDERABLE S [facility] [place] [address] * (ABNORMAL) Hemogram (10/31/2023 1:37 AM EDT) White Blood Cell 10.6(H) 4.0 - 9.5 x10(3)/mc L [facility] Red Blood Cell 3.78(L) 4.00 - 5.21 x10(6)/mc L [facility] Hemoglobin 13.0 11.7 - 15.5 g/dL [facility] Hematocrit 37.9 35.7 - 45.8 % [facility] Mean Cell Volume 100.3(H) 82.6 - 94.4 fL [facility] Mean Cell Hemoglobin 34.4(H) 27.1 - 32.0 pg [facility] Mean Cell Hemoglobin Concentration 34.3 31.7 - 35.0 g/dL [facility] Platelet 204 145 - 357 x10(3)/mc L [facility] RDW Standard Deviation 54.3(H) 37.0 - 46.0 fL [facility] RDW coefficient of variation 14.6(H) 11.5 - 14.1 % [facility] Mean Platelet Volume 11.1 7.6 - 12.9 fL [facility] NRBC% auto 0.0 % [facility] NRBC Absolute 0.000 0.000 - 0.000 x10(3)/mc L [facility] Blood 10/31/2023 1:37 AM EDT 10/31/2023 1:46 AM EDT Narrative Resulting Agency Comment Spec In Lab Qamar Gallardo MD HEMATOLOGY ORDERABLE S [facility] [place] [address] * Phosphorus (10/31/2023 1:37 AM EDT) Phosphorus 3.2 2.5 - 4.5 mg/dL [facility] Blood 10/31/2023 1:37 AM EDT 10/31/2023 1:46 AM EDT Narrative Resulting Agency Comment Spec In Lab Rosa Cornejo MD CHEMISTRY ORDERABLE S Performing Organization Address City/[facility]/ZIP Co de Phone Number [facility] [place] [address] * Magnesium (10/31/2023 1:37 AM EDT) Magnesium 0.83 0.69 - 1.07 mmol/L [facility] Blood 10/31/2023 1:37 AM EDT 10/31/2023 1:46 AM EDT Narrative Resulting Agency Comment Spec In Lab Rosa Cornejo MD CHEMISTRY ORDERABLE S [facility] [place] [address] * Basic Metabolic Panel (non-fasting) (10/31/2023 1:37 AM EDT) Glucose 114 65 - 199 mg/dL [facility] Comment:Diabetes: >=200 mg/d L plus symptoms Blood Urea Nitrogen 13 8 - 18 mg/dL [facility] Creatinine 0.81 0.70 - 1.20 mg/dL [facility] Sodium 140 135 - 145 mmol/L [facility] Potassium 3.9 3.5 - 5.0 mmol/L [facility] Comment: Please note: ??Patients with WBC >100,000 may have falsely elevated Potassium levels. ??For accurate Potassium quantification in these patients send serum separator tube (gold top) for subsequent determinations. ??Contact the Clinical Chemistry Laboratory if there are any questions. Chloride 107 98 - 107 mmol/L [facility] Carbon Dioxide 25 22 - 31 mmol/L [facility] Anion Gap 8 5 - 15 mmol/L [facility] Calcium 8.6 8.5 - 10.5 mg/dL [facility] Est Glomerular Filtration Rate 72 >=60 mL/min/1. 73 m?? [facility] Comment: This patient's estimated GFR [...] Lab Rosa Cornejo MD CHEMISTRY ORDERABLE S [facility] [place] [address] * (ABNORMAL) Troponin (10/31/2023 1:37 AM EDT) Troponin-T, High Sensitivity 329(H) <=14 ng/L [facility] Comment: This patient's troponin T [...] value can be found in the [facility] Laboratory Test Catalog Troponin - [facility] Test Catalog Reference: Fourth [place] Definition of Myocardial Infarction. Journal of the [place] [employer] 2018;72:5224-1982 Blood 10/31/2023 1:37 AM EDT 10/31/2023 1:46 AM EDT Narrative Resulting Agency Comment Spec In Lab Rosa Cornejo MD CHEMISTRY ORDERABLE S Performing Organization Address City/[facility]/[place] [address] * EKG 12 Lead (10/31/2023 1:20 AM [...] normal variant ( R in aVL , [place] product ) T wave abnormality, consider inferior [...] View (10/30/2023 10:10 PM EDT) WORKSTATION ID [id number] RAD Anatomical Region Laterality Modality Chest N/A Digital Radiogra phy Impressions 10/30/2023 10:32 PM EDT 1. ??Examination limited by low lung volumes. 2. ??Findings suggesting pulmonary vascular congestion with possible mild interstitial edema. 3. ??Known ascending aortic aneurysm, as seen on recent CT. 4. ??Nonspecific widening mediastinum. This can be secondary to magnification from portable technique and low lung volumes. Findings similar to yard inspector radiograph from CT 10/30/2023. Thank you for letting us participate in the care of this patient. ??If you are a health care provider and have any questions regarding this report, please contact the number below. ??For patients who have questions please contact the health manager long term care that requested your imaging first. ? Electronically signed by: Wilson Mccartney MD, [facility] ([phone]), at 10/30/2023 10:32 PM Narrative 10/30/2023 10:32 [...] and low lung volumes. Findings similar to yard inspector radiograph from CT 10/30/2023. Thank you for letting us participate in the care of this patient. If youare a health care provider and have any questions regarding this report,please contact the number below. For patients who have questions please contactthe health manager long term care that requested your imaging first. Electronically signed by: Wilson Mccartney MD, [facility]([phone]), at 10/30/2023 10:32 PM Rosa Cornejo MD IMG DX ORDERABLES * Green Tube HOLD (10/30/2023 10:05 PM EDT) [facility] Green Hold Sample in lab. [facility] Blood Venous Draw / Unknown 10/30/2023 10:05 PM EDT 10/30/2023 10:13 PM EDT Qamar Gallardo MD CHEMISTRY ORDERABLES [facility] [place] [address] * (ABNORMAL) Differential, Automated (10/30/2023 10:05 PM EDT) Neutrophil % 76.6 % [facility] Neutrophil Absolute 6.94(H) 1.70 - 6.10 x10(3)/mc L [facility] Lymph % 15.4 % [facility] Lymphocytes Abs 1.4 0.9 - 3.2 x10(3)/mc L [facility] Monocyte % 6.1 % [facility] Monocyte Abs 0.6 0.3 - 0.9 x10(3)/mc L [facility] Eos % 1.1 % [facility] Eosinophils Abs 0.1 0.0 - 0.4 x10(3)/mc L [facility] Basophil % 0.6 % [facility] Baso Absolute 0.0 0.0 - 0.1 x10(3)/mc L [facility] Immature Gran % 0.20 % [facility] Comment: Immature granulocytes(IG's)percentage and absolute count will include metamyelocytes, myelocytes, and promyelocytes. Blood smears from CBCs yielding IG's will be scanned manually for concordance. If this scan disagrees with the automated IG or if promyelocytes are noted, a manual differential will be performed. Immature Gran Absolute 0.02 0.00 - 0.04 x10(3)/mc L [facility] Blood 10/30/2023 10:0 5 PM EDT 10/30/2023 10:12 PM EDT Narrative Resulting Agency Comment Spec In Lab Qamar Gallardo MD HEMATOLOGY ORDERABLE S Performing Organization Address City/State/[facility] Co de Phone Number [facility] [place] [address] * (ABNORMAL) Hemogram (10/30/2023 10:05 PM EDT) White Blood Cell 9.0 4.0 - 9.5 x10(3)/mc L [facility] Red Blood Cell 3.96(L) 4.00 - 5.21 x10(6)/mc L [facility] Hemoglobin 13.3 11.7 - 15.5 g/dL [facility] Hematocrit 39.1 35.7 - 45.8 % [facility] Mean Cell Volume 98.7(H) 82.6 - 94.4 fL [facility] Mean Cell Hemoglobin 33.6(H) 27.1 - 32.0 pg [facility] Mean Cell Hemoglobin Concentration 34.0 31.7 - 35.0 g/dL [facility] Platelet 211 145 - 357 x10(3)/mc L [facility] RDW Standard Deviation 53.6(H) 37.0 - 46.0 fL [facility] RDW coefficient of variation 14.6(H) 11.5 - 14.1 % [facility] Mean Platelet Volume 11.1 7.6 - 12.9 [facility] NRBC% auto 0.0 % [facility] NRBC Absolute 0.000 0.000 - 0.000 x10(3)/mc L [facility] Blood 10/30/2023 10:0 5 PM EDT 10/30/2023 10:12 PM EDT Narrative Resulting Agency Comment Spec In Lab Qamar Gallardo MD HEMATOLOGY ORDERABLE S Performing Organization Address City/[facility]/ZIP Co de Phone Number [facility] [place] [address] * Hemoglobin A1c (10/30/2023 10:05 PM EDT) Hemoglobin A1c 5.5 4.3 - 5.6 % [facility] Comment: Reference Range: 4.3 - [...] [id number] Estimated Average Glucose See note mg/dL [facility] Comment: Estimated Average Glucose not appropriate for patients over 70 years of age. Blood 10/30/2023 10:0 5 PM EDT 10/30/2023 10:12 PM EDT Narrative Resulting Agency Comment Spec In Lab Rosa Cornejo MD CHEMISTRY ORDERABLE S [facility] [place] [address] * Lipid Panel (Reflex Direct LDL) (10/30/2023 10:05 PM EDT) [facility] Signature Cholesterol, Total 218 mg/dL [facility] Comment: Desirable: ? <200 mg/dL Borderline High: 200-239 mg/dL Higher: ?>sb=094 mg/dL Triglyceride 46 mg/dL [facility] Comment: Normal: ?<150 mg/dL Borderline High: 150-199 mg/dL High: ?200-499 mg/dL Very High: ? >fw=960 mg/dL HDL Cholesterol 64 mg/dL [facility] Comment: Females: High Risk: <50 mg/dL Males: High Risk: <40 mg/dL LDL Cholesterol 145 mg/dL [facility] Comment: Desirable: ? <100 mg/dL Above Desirable: 100-129 mg/dL Borderline High: 130-159 mg/dL High: ?160-189 mg/dL Very High: ? >tj=735 mg/dL Lipid Interpretation See Note [facility] Comment: It is important to [...] be even lower. ACC/AHA Guidelines (most recently Felicaino et al. JAC 03/23/22): For individuals with atherosclerotic cardiovascular disease (ASCVD)or LDL >jo=322 mg/dL, use a high-intensity statin (40-80 mg [...] CHEMISTRY ORDERABLE S Performing Organization Address City/[facility] Co de Phone Number [facility] [place] [address] * TSH Moyers (10/30/2023 10:05 PM EDT) Thyroid Stimulating Hormone 3.35 0.27 - 4.20 mcIU/mL [facility] Comment: Reference Interval (mcIU/mL): Females: ??First Trimester: 0.23-3.88 ??Second Trimester: 0.22-3.90 ??Third Trimester: 0.44-4.66 Blood 10/30/2023 10:0 5 PM EDT 10/30/2023 10:12 PM EDT Narrative Resulting Agency Comment Spec In Lab Rosa Cornejo MD CHEMISTRY ORDERABLE S Performing Organization Address City/[facility]/ZIP Co de Phone Number [facility] [place] [address] * pro-Brain Natriuretic Peptide (10/30/2023 10:05 PM EDT) NT-proBNP 375 <=449 pg/mL [facility] Blood 10/30/2023 10:0 5 PM EDT 10/30/2023 10:12 PM EDT Narrative Resulting Agency Comment Spec In Lab Rosa Cornejo MD CHEMISTRY ORDERABLE S [facility] [place] [address] * (ABNORMAL) Comprehensive metabolic panel (non-fasting) (10/30/2023 10:05 PM EDT) Pathologist [facility] Glucose 121 65 - 199 mg/dL [facility] Comment:Diabetes: >=200 mg/d L plus symptoms Blood Urea Nitrogen 14 8 - 18 mg/dL [facility] Creatinine 0.85 0.70 - 1.20 mg/dL [facility] Sodium 142 135 - 145 mmol/L [facility] Potassium 3.9 3.5 - 5.0 mmol/L [facility] Comment: Please note: ??Patients with WBC >100,000 may have falsely elevated Potassium levels. ??For accurate Potassium quantification in these patients send serum separator tube (gold top) for subsequent determinations. ??Contact the Clinical Chemistry Laboratory if there are any questions. Chloride 105 98 - 107 mmol/L [facility] Carbon Dioxide 27 22 - 31 mmol/L [facility] Anion Gap 10 5 - 15 mmol/L [facility] Calcium 8.8 8.5 - 10.5 mg/dL [facility] Protein, Total 6.5 6.1 - 8.0 g/dL [facility] Albumin 4.2 3.2 - 5.2 g/dL [facility] Aspartate Aminotransferase 36(H) 0 - 30 unit/L [facility] Alanine Aminotransferase 17 0 - 30 unit/L [facility] Alkaline Phosphatase 54 35 - 105 unit/L [facility] Bilirubin, Total 0.5 0.2 - 1.3 mg/dL [facility] Est Glomerular Filtration Rate 68 >=60 mL/min/1. 73 m?? [facility] Comment: This patient's estimated GFR [...] CHEMISTRY ORDERABLE S Performing Organization Address City/[facility]/ZIP Co de Phone Number [facility] [place] [address] * Phosphorus (10/30/2023 10:05 PM EDT) Phosphorus 3.3 2.5 - 4.5 mg/dL [facility] Blood 10/30/2023 10:0 5 PM EDT 10/30/2023 10:12 PM EDT Narrative Resulting Agency Comment Spec In Lab Rosa Cornejo MD CHEMISTRY ORDERABLE S [facility] [place] [address] * Magnesium (10/30/2023 10:05 PM EDT) Magnesium 0.86 0.69 - 1.07 mmol/L [facility] Blood 10/30/2023 10:0 5 PM EDT 10/30/2023 10:12 PM EDT Narrative Resulting Agency Comment Spec In Lab Rosa Cornejo MD CHEMISTRY ORDERABLE S Performing Organization Address [facility]/ZIP Co de Phone Number [facility] [place] [address] * (ABNORMAL) Troponin (10/30/2023 10:05 PM EDT) Troponin-T, High Sensitivity 214(H) <=14 ng/L [facility] Comment: This patient's troponin T [...] value can be found in the [facility] Test Catalog Troponin - [facility] Test Catalog Reference: Fourth [place] Definition of Myocardial Infarction. Journal of the [place] [employer] 2018;72:1712-1852 Blood 10/30/2023 10:0 5 PM EDT 10/30/2023 10:12 PM EDT Narrative Resulting Agency Comment Spec In Lab Rosa Cornejo MD CHEMISTRY ORDERABLE S Performing Organization Address City/[facility]/ZIP Co de Phone Number [facility] [place] [address] * EKG 12 Lead (10/30/2023 8:21 PM [...] normal variant ( R in aVL , [place] product ) T wave abnormality, consider inferior [...] (Recovery-Hospital Unit), Routine 0937 (Given - Provider: Mray Sweeney, TANESHA) 0816 (Given - Provider: Lucretia [...] Reason: Transfer to a Procedural area)1548 ([facility] Unhold - Provider: Admin Adt) midazolam (pf) [...] on this medication record., Routine 1333 ([facility] Hold - Provider: Admin Adt - Reason: Transfer to a Procedural area)1548 ([facility] Unhold - Provider: Admin Adt) documented in this encounter Additional Health Concerns Infection Onset Date Last Indicated Resolved Time Rule Out Respiratory 11/02/2023 11/02/2023 024 12:22 PM EDT Rule Out COVID-19 11/02/2023 11/02/2023 11/02/2023 12:22 PM EDT documented as of this encounter Care Teams Sales Assistant Displays Relationship Specialty Start Date End Date Rosie Mathews MD [address] [place] [id number] PCP - General Family Medicine 11/25/17 11/23/23 documented as of this encounter
--- OUTSIDE RECORDS SUMMARY | 2024-04-24 17:20 | XMS_ITS | Encounter Summary ---
Author Organization [facility] [place] [address] Care Team Providers Care Training And Development Project Leader Name Role Phone Rosie Mathews MD Primary Care Provider Reason for Visit * Auth/Cert (Routine) Specialty Diagnoses / Procedures Referred By Contac t Referred To Contact Diagnoses Unstable angina Chest pain NSTEMI Procedures CARDIAC CATHETERIZATION Rosa Dewey MD [facility] [place] [address] [facility] Referral ID Status Reason Start Date Expiration Date Visits Re quested Visits Authorized [id number] 1 1 Encounter Details Date Type Department Care Team (Late st Contact Info) Description 10/30/2023 4:25 PM EDT - 10/30/2023 5:27 PM EDT Surgery [place] [address] Rosa Dewey MD [facility] [address] [place], [place] [id number] CARDIAC CATHETERIZATION Social History Tobacco Use Types Packs/Day Years Used Date Smoking Tobacco: Former Smokeless Tobacco: Never Alcohol Use Standard Drinks/Week Comments Not Currently 0 (1 standard drink = 0.6 oz pur e alcohol) [facility] Inpatient Questions Answer Date Recorded Does Anyone [...] – [place] as a transfer from [facility] as a possible STEMI alert with acute onset chest pain. The patient reports that her symptoms initially began on Tuesday when she was walking to [facility] and experienced bilateral arm heaviness while walking with no other symptoms. Then, this afternoon shereports developing bilateral achy shoulder pain and nonradiating substernal left-sided chest pressure that was 7/10 in severity after coming home from [place]. The patient denies any associated fevers, chills, [...] repeat, her JAMIE resolved. Cardiology at [facility] was consulted for transfer; the patient was loaded with aspirin 324 mg and ticagrelor 180 mg, started on a heparin drip, and given nitroglycerin with improvement in chest pain. Upon arrival to [facility] [place] [place], the patient was taken directly to the Apartment Hotel Manager. Two lesions were discovered: one in the prox RCA (felt to almost be a RADIOLOGY SCHEDULER but they were able to wire, balloon, [...] dose administered prior to arrival in the propagator laborer. Recommended anti-platelet/anti-thrombotic regimen: Continue aspirin 81 [...] and low lung volumes. Findings similar to job forwarder radiograph from CT 10/30/2023. Pending Studies and [...] AM Izaiah Meyer MD Cardiology at [place] Arrive at: [facility] [address] [phone] Future Orders Complete By Expires Referral to Cardiac Rehab [[id number] Custom] As directed Process Instructions: If no [...] Santos for admission to Home Health. [address] [place] [address] [place] [phone] (home) Date of : 1940 Inpatient DOCUMENTATION FOR VNA SERVICES (INCLUDING THOSE PATIENTS WITH MEDICARE COVERAGE REQUIRING HOME VNA SERVICES AND/OR HOSPICE SERVICES) PATIENT'S LOCATION: Adin Santos [address] [facility] [id number] (home) Cell: Telephone Information: File System Installer's Name: self In discussion with the attending physician, it is certified that this patient is under their care and that they, or a Nurse Practitioner, Clinical Nurse specialist or Physician Transfer Specialist who is working directly with them, had [...] [facility] [address] [place] [id number] START OF CARE: within 24-48 hours of [...] Mathews MD [address] / [facility] [address] . All A agencies which cover the [...] MD / Dr. Masood Pierson [address] [place] [address] 11/09/23 1:55 PM arrival for 2:10 PM appointment Paperhanger Apprentice: Izaiah Meyer MD [address] [place] [address] , 11/24/2023 10:40 AM Your Inpatient Medical Team at [facility] Name(s) of your inpatient provider(s): Attending physician: Rosa Hugo MD Resident physicians: Emile Robles MD; Elmer Tamez MD If you have non-emergent questions, prior to your follow-up visit call: Tuesday-Tuesday between the hours of 8AM-5PM please call the Cardiology Clinic [phone] to speak with a nurse. All other hours please call the Hospital Lettuce Cutter [phone] and ask to speak to the patient care manager on-call. Your Primary Care Provider Rosie Mathews MD [phone] For questions regarding this document or issues relating to this hospitalization on the Medical Service, please contact your inpatient physician through the [facility] Lettuce Cutter . Issues afterhours and on weekends will be handled by the Paperhanger Apprentice staff on-call. Associated attestation - Rosa Hugo [...] MD / Dr. Masood Pierson [address] [place] [address] 11/09/23 1:55 PM arrival for 2:10 PM appointment Paperhanger Apprentice: Izaiah Meyer MD [address] [place] [address] , 11/24/2023 10:40 AM Your Inpatient Medical Team at [facility] Name(s) of your inpatient provider(s): Attending physician: Rosa Hugo MD Resident physicians: Emile Robles MD; Elmer Tamez MD If you have non-emergent questions, prior to your follow-up visit call: Tuesday-Tuesday between the hours of 8AM-5PM please call the Cardiology Clinic [phone] to speak with a nurse. All other hours please call the Hospital Lettuce Cutter [phone] and ask to speak to the patient care manager on-call. Your Primary Care Provider Rosie Mathews MD [phone] documented in this encounter Medications at Time [...] – [place] [facility] a transfer [facility] [...] – [place] as a transfer from [facility] [...] Resident on Cardiology Service Cardiology S1 (Pager [phone]) Note written in conjunction with Claudio Perla [facility] Medical Student, MS3 Associated attestation - [...] Nirmala Webb - 11/01/2023 11:25 AM EDT Photonics Engineer Encounter Note Patient Name: Adin Santos : [id number] MR#: [id number] Admit Date: 10/30/2023 5:11 PM Hospital Day 2 days Narrative: Self initiated visit to patient for Spiritual support in a regular unit rounds. Assessment: Patient is in the bathroom at the time of this visit. Not a good time for Network Development Coordinator visit. Intervention and Outcome: An attempted [...] – [place] [facility] a transfer [facility] [...] and low lung volumes. Findings similar to job forwarder radiograph from CT 10/30/2023. Scheduled Medications: [MAR [...] – [place] as a transfer [facility] [...] Resident on Cardiology Service Cardiology S1 (Pager [phone]) Note written in conjunction with Claudio Perla [facility] Medical Student, MS3 Associated attestation - [...] – [place] as a transfer from [facility] as a possible STEMI alert with acute onset chest pain. Active Problems: Active Hospital Problems Diagnosis Unstable angina Resolved Hospital Problems No resolved problems to display. 24 hr events: - Cath'd yesterday with lesion in the proximal RCA (initially thought it was RADIOLOGY SCHEDULER but they were ableto wire, balloon and [...] and low lung volumes. Findings similar to job forwarder radiograph from CT 10/30/2023. TTE (10/30): Interpretation [...] – [place] as a transfer from [facility] [...] Resident on Cardiology Service Cardiology S1 (Pager [phone]) Note written in conjunction with Claudio Perla [facility] Medical Student, MS3 Associated attestation - [...] PCP: Rosie Mathews MD PCP phone number: [phone] Date of Admission: 10/30/2023 ( Hospital Day 0 days ) Attending:Rosa Cornejo MD ID: dAin Santos is a 83 y.o. female PMH significant for hypertension and hyperlipidemia who presented to [facility] as a transfer from [facility] as a possible STEMI alert with acute onset chest pain. The patient reports that her symptoms initially began on Tuesday when she was walking to [facility] and experienced bilateral arm heaviness while walking with no other symptoms. Then, this afternoon shereports developing bilateral achy shoulder pain and nonradiating substernal left-sided chest pressure that was 7/10 in severity after coming home from [place]. The patient denies any associated fevers, chills, [...] repeat, her JAMIE resolved. Cardiology at [facility] was consulted for transfer; the patient was loaded with aspirin 324 mg and ticagrelor 180 mg, started on a heparin drip, and given nitroglycerin with improvement in chest pain. Upon arrival to [facility] [place], the patient was taken directly to the Apartment Hotel Manager. 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 Findings similar to job forwarder radiograph from CT 10/30/2023. Assessment & Plan: Adin Santos is a 83 y.o. female PMH significant for hypertension and hyperlipidemia who presented to [facility] as a transfer from [facility] [...] information for follow-up [facility], [place] [address] TANESHA BOYCE confirmed with Brittany CARVAJAL that they will see the patient within 24-48 hours of discharge for start of care. Transportation: family or friend will provide Wheelchair van/Ambulance? No Functional status prior to admission: Assistive Equipment Home Environment: Others in the home: alone. Current Living Arrangements: home/apartment/condo. Accessibility Concerns:1st floor apartment in retirement community; handicapped accessible. Current Functional Ability: Assistive [...] the room. Electrolytes replaced, see MAR. medical laboratory technician sites remained C/D/I with baseline ecchymosis unchanged. Pt complained of back pain, lidocaine patch given. Right IV infiltrated during infusion, patient is marked with sharpie, IV removed. See flowsheet for I+O's and safety rounding. Patient is able to make needs known and call capps within reach. PLAN MOVING FORWARD: Monitor Tele, control BP, monitor propagator laborer sites, D/C Planning INDIVIDUALIZED FALL PREVENTION [...] and above on RA. PT went to propagator laborer today. Left fem site oozed throughout [...] MOVING FORWARD: Monitor Tele, control BP, monitor propagator laborer sites, D/C Planning INDIVIDUALIZED FALL PREVENTION [...] (i) The agent with financial power of contract attorney or a conservator appointed in accordance [...] Arrangements: home/apartment/condo. Accessibility Concerns:1st floor apartment in retirement community; handicapped accessible. In the last 12 [...] has the electric, gas, oil, or water [employer] threatened to shut off services in your [...] toilet seat Home Address confirmed as: [address] [facility] [address] Social & Family Supports: All names listed below confirmed with patient as current and correct Extended Emergency Contact Information Primary Emergency Contact: Iris Downing Address: [address] [place], [place] [address] [place] [address] Mobile Relation: Child Secondary Emergency Contact: Karen More Address: [address] [facility] Mobile Relation: Child Current Care Provided by: [...] Insurance: N/A Prescription Coverage: Yes Preferred Pharmacy: [facility] [place], [place] - [address] [place] [address] [place] [id number] [place] Status: Patient is a : No Primary Care Provider listed: Masood Pierson MD [phone] Patient/Caregiver Goals of Treatment: home when MR Potential Needs for Transition of Care: home health care Agency Referrals: Not Applicable I have met with the patient to: discuss discharge planning needs. provide the [facility], Office of Care Management letter from the [employer] pertaining to rehab referrals. provide a letter describing our affiliations within the [facility] and educate about their right to choose where referrals are sent. provide a list of Home Health Agencies / Durable Medical Equipment vendors which serve their preferred geographic area. provided patient with CMS Star Quality Rating handout. They have requested referrals to: [facility] [address] [place] [address] Note routed to a Impregnator Helper who will communicate referrals to facilities and provide any required information. Transportation: no concerns Transportation Anticipated: family or friend will provide Concerns to be Addressed: denies needs/concerns at this time Assessment: Patient is admitted to Cardiology S1 service for Unstable Angina Plan: d/c plan pending clinical course, but anticipating d/c home w/ services when MR. Nichoslon member of the Care Management team will [...] PO hydralazine added for BP control. medical laboratory technician sites remain C/D/I, ecchymosis unchanged th roughout shift. See flowsheet for I+O's and safety rounding. Patient is able to make needs known and call capps within reach. PLAN MOVING FORWARD: Monitor Tele, control CP and BP, NPO at MD for cath, monitor propagator laborer sites, D/C Planning INDIVIDUALIZED FALL PREVENTION [...] 11:00 AM EDT Office Visit Cardiology at [address] [address] Izaiah Meyer MD [facility] [place] [address] Scheduled Referrals Name Type Priority Associated Diagnoses [...] 3:46 AM EDT) Neutrophil % 63.3 % [facility] Neutrophil Absolute 5.28 1.70 - 6.10 x10(3)/mc L [facility] Lymph % 15.2 % [facility] Lymphocytes Abs 1.3 0.9 - 3.2 x10(3)/mc L [facility] Monocyte % 16.9 % [facility] Monocyte Abs 1.4(H) 0.3 - 0.9 x10(3)/mc L [facility] Eos % 3.7 % [facility] Eosinophils Abs 0.3 0.0 - 0.4 x10(3)/mc L [facility] Basophil % 0.5 % [facility] [...] HEMATOLOGY ORDERABLE S [facility] [place] [address] * (ABNORMAL) Hemogram (11/03/2023 3:46 AM EDT) White Blood Cell 8.3 4.0 - 9.5 x10(3)/ L [facility] Red Blood Cell 3.77(L) 4.00 - 5.21 x10(6)/ L [facility] Hemoglobin 13.1 [...] MEDICAL CENTER [facility] NRBC% auto 0.0 % [facility] NRBC Absolute 0.000 0.000 - 0.000 x10(3)/ L [facility] Blood 11/03/2023 3:46 AM EDT 11/03/2023 4:11 AM EDT Narrative Resulting Agency Comment Spec In Lab Qamar Gallardo MD HEMATOLOGY ORDERABLE S Performing Organization Address City/[facility]/ZIP Co de Phone Number [facility] [place] [address] * Phosphorus (11/03/2023 3:46 AM EDT) Phosphorus 3.2 2.5 - 4.5 mg/dL [facility] Comment:result rechecked-KS Blood 11/03/2023 3:46 AM EDT 11/03/2023 4:11 AM EDT Narrative Resulting Agency Comment Spec In Lab Rosa Cornejo MD CHEMISTRY ORDERABLE S Performing Organization Address [facility]/ZIP Co de Phone Number [facility] [place] [address] * Magnesium (11/03/2023 3:46 AM EDT) Magnesium 0.90 0.69 - 1.07 mmol/L [facility] Blood 11/03/2023 3:46 AM EDT 11/03/2023 4:11 AM EDT Narrative Resulting Agency Comment Spec In Lab Rosa Cornejo MD CHEMISTRY ORDERABLE S Performing Organization Address City/[facility]/ZIP Co de Phone Number [facility] [place] [place] [address] * (ABNORMAL) Basic Metabolic Panel (non-fasting) (11/03/2023 [...] CHEMISTRY ORDERABLE S [facility] [place] [address] * EKG 12 Lead (11/02/2023 12:44 PM EDT) Ventricular rate 83 BPM MUSE SYSTEM Atrial Rate 83 BPM MUSE SYSTEM P-R Interval 216 ms MUSE SYSTEM QRS Duration 90 ms MUSE SYSTEM Q-T Interval 384 ms MUSE SYSTEM QTC Calculated (Bezet) 451 ms MUSE SYSTEM Calculated P Esmond 92 degrees MUSE SYSTEM Calculated R Esmond -51 degrees MUSE SYSTEM Calculated T Esmond -33 degrees MUSE SYSTEM INTERPRETATION Sinus rhythm with 1st degree A-V block with Premature atrial complexes Left axis deviation Moderate voltage criteria for LVH, may be normal variant ( R in aVL , [place] product ) Anterolatera l infarct (cited on [...] Hugo MD ECG ORDERABLES Performing Organization Address City/[facility]/ZIP Co de Phone Number MUSE SYSTEM [...] MD URINE ORDERABLES [facility] [place] [place] [address] * (ABNORMAL) Urinalysis with reflex Culture (11/02/2023 [...] CENTER LABORATORY Leukocytes, Urine Dipstick Small(A) Negative [facility] Appearance, Urine Dipstick Cloudy(A) Clear [facility] Specific [place] Urine Automated >=1.030(A) 1.005 - 1.030 [facility] Color, Urine Dipstick Dark Yellow Yellow [facility] Reflex to Culture Yes [facility] Clean Catch Urine 11/02/2023 11:40 AM EDT 11/02/2023 12:04 PM EDT Narrative Resulting Agency Comment Spec In Lab Rosa Hugo MD URINE ORDERABLES [facility] [place] [address] * Respiratory Panel PCR (11/02/2023 10:15 AM EDT) Respiratory Panel Source FUNCTIONAL SUPPORT ANALYST Swab [facility] Respiratory Panel PCR Negative Negative [facility] Comment: Respiratory Panels are performed on the [employer], using multiplexed PCR nucleic acid detection. ??Negative [...] performed using the [employer] Respiratory Panel 2.1 ([employer]) as authorized by the FDA issued Emergency [...] laboratories within the [facility], each of which is certified under [...] fact sheets at the following FDA website: https://www.fda.gov/medical-devices/jyfpesnbztg-hdffqrt-1073-syieh-49-ceickerlf- use-a vtssvulxqhfkc-khjlrqp-utofzrc/svdhk-cuffmpimwwq-xwyk Human Metapneumovirus Not Detected Not Detected [facility] [...] GEN ERAL ORDERABLES [facility] [place] [address] * XR Chest One View (11/02/2023 2:51 AM EDT) WORKSTATION ID [id number] DH RAD Anatomical Region Laterality Modality Chest [...] have questions please contact the health care partner that requested your imaging first. ? Narrative [...] who have questions please contactthe health care partner that requested your imaging first. Rosa Hugo MD IMG DX ORDERABLES * (ABNORMAL) Differential, Automated (11/02/2023 12:35 AM EDT) Neutrophil % 76.5 % [facility] Neutrophil Absolute 7.69(H) 1.70 - 6.10 x10(3)/mc L [facility] Lymph % 8.3 % [facility] Lymphocytes Abs 0.8(L) 0.9 - 3.2 x10(3)/mc L [facility] Monocyte % 12.9 % [facility] Monocyte Abs 1.3(H) 0.3 - 0.9 x10(3)/mc L [facility] Eos % 1.4 % [facility] Eosinophils Abs 0.1 0.0 - 0.4 x10(3)/mc L [facility] Basophil % 0.4 % [facility] [...] HEMATOLOGY ORDERABLE S [facility] [place] [address] * (ABNORMAL) Hemogram (11/02/2023 12:35 AM EDT) [...] MEDICAL CENTER LABORATORY NRBC% auto 0.0 % [facility] NRBC Absolute 0.000 0.000 - 0.000 x10(3)/mc L [facility] Blood 11/02/2023 12:3 5 AM EDT 11/02/2023 12:43 AM EDT Narrative Resulting Agency Comment Spec In Lab Qamar Gallardo MD HEMATOLOGY ORDERABLE S [facility] [place] [address] * (ABNORMAL) Phosphorus (11/02/2023 12:35 AM EDT) Phosphorus 1.6(L) 2.5 - 4.5 mg/dL [facility] Blood 11/02/2023 12:3 5 AM EDT 11/02/2023 12:43 AM EDT Narrative Resulting Agency Comment Spec In Lab Rosa Cornejo MD CHEMISTRY ORDERABLE S Performing Organization Address City/[facility]/ZIP Co de Phone Number [facility] [place] [address] * Magnesium (11/02/2023 12:35 AM EDT) Magnesium 0.87 0.69 - 1.07 mmol/L [facility] Blood 11/02/2023 12:3 5 AM EDT 11/02/2023 12:43 AM EDT Narrative Resulting Agency Comment Spec In Lab Rosa Cornejo MD CHEMISTRY ORDERABLE S Performing Organization Address City/[facility]/ZIP Co de Phone Number [facility] [place] [address] * Basic Metabolic Panel (non-fasting) (11/02/2023 12:35 [...] CHEMISTRY ORDERABLE S [facility] [place] [address] * Blood culture (11/02/2023 12:35 AM EDT) Blood Culture No growth at 5 days. [facility] Blood 11/02/2023 12:3 5 AM EDT 11/02/2023 1:55 AM EDT Comment:#2 site ukn Narrative Resulting Agency Comment Spec In Lab Rosa Hugo MD MICROBIOLOGY - BLO OD ORDERABLES Performing Organization Address [facility] Co de Phone Number [facility] [place] [address] * Blood culture (11/02/2023 12:15 AM EDT) Blood Culture No growth at 5 days. [facility] Blood 11/02/2023 12:1 5 AM EDT 11/02/2023 1:54 AM EDT Comment:#1site unk Narrative Resulting Agency Comment Spec In Lab Rosa Hugo MD MICROBIOLOGY - BLO OD ORDERABLES Performing Organization Address [facility] Co de Phone Number [facility] [place] [address] * EKG 12 Lead (11/01/2023 10:10 PM EDT) Ventricular rate 139 BPM MUSE SYSTEM Atrial Rate 139 BPM MUSE SYSTEM P-R Interval 168 ms MUSE SYSTEM QRS Duration 84 ms MUSE SYSTEM Q-T Interval 286 ms MUSE SYSTEM QTC Calculated (Bezet) 435 ms MUSE SYSTEM Calculated R Esmond -59 degrees MUSE SYSTEM Calculated T Esmond -27 degrees MUSE SYSTEM INTERPRETATION Mid-RP tachycardia, consider sinus tachycardia or SVT Left axis deviation Moderate voltage criteria for LVH, may be normal variant ( R in aVL , [place] product ) Inferior infarct (cited on or before 01-NOV-2023) Anterolateral infarct (cited on or before 01-NOV-2023) Abnormal ECG When compared with ECG of 01-NOV-2023 15:22, Vent. rate Although rate has increased Serial changes of Anterior infarct Present I personally reviewed the tracing and edited the fellows interpretation Confirmed by fellow MD Bowen Ashley ([id number]) on 11/04/2023 7:57:50 AM Confirmed by MD Carrillo Danette ([id number]) on 11/04/2023 4:32:03 PM MUSE SYSTEM 11/01/2023 10:1 0 PM EDT 11/04/2023 4:32 PM EDT Rosa Cornejo MD ECG ORDERABLES MUSE SYSTEM * (ABNORMAL) Hemogram (11/01/2023 10:06 PM EDT) White Blood Cell 10.4(H) 4.0 - 9.5 x10(3)/[facility] Red Blood Cell 4.11 4.00 - 5.21 x10(6)/[facility] Hemoglobin 14.0 11.7 - 15.5 [...] CENTER LABORATORY Platelet 197 145 - 357 x10(3)/[facility] RDW Standard Deviation 54.0(H) 37.0 - 46.0 fL [facility] RDW coefficient of variation 14.6(H) 11.5 - 14.1 % [facility] Mean Platelet Volume 11.2 7.6 - 12.9 fL [facility] NRBC% auto 0.0 % [facility] NRBC Absolute 0.000 0.000 - 0.000 x10(3)/[facility] Blood 11/01/2023 10:0 6 PM EDT 11/01/2023 10:22 PM EDT Narrative Resulting Agency Comment Spec In Lab Rosa Hugo MD HEMATOLOGY ORDERAB LES Performing Organization Address City/[facility]/ZIP Co de Phone Number [facility] [place] [address] * POCT Glucose (11/01/2023 5:59 PM EDT) Glucose, POC 104 65 - 199 mg/dL [facility] Comment: Supplemental ranges: <140 mg/dL before meals <180 mg/dL all other times of the day Blood 11/01/2023 5:59 PM EDT 11/01/2023 5:59 PM EDT Rosa Hugo MD POINT OF CARE TEST ORDERABLES Performing Organization Address [facility] Co de Phone Number [facility] [place] [address] * POCT Glucose (11/01/2023 5:35 PM EDT) [facility] Signature Glucose, POC 85 65 - 199 mg/dL [facility] Comment: Supplemental ranges: <140 mg/dL before meals <180 mg/dL all other times of the day Blood 11/01/2023 5:35 PM EDT 11/01/2023 5:35 PM EDT Rosa Hugo MD POINT OF CARE TEST ORDERABLES Performing Organization Address City/[facility] Co de Phone Number [facility] [place] [place] [address] * EKG 12 Lead (11/01/2023 3:22 PM EDT) Ventricular rate 59 BPM MUSE SYSTEM Atrial Rate 59 BPM MUSE SYSTEM P-R Interval 220 ms MUSE SYSTEM QRS Duration 94 ms MUSE SYSTEM Q-T Interval 428 ms MUSE SYSTEM QTC Calculated (Bezet) 423 ms MUSE SYSTEM Calculated P Esmond 76 degrees MUSE SYSTEM Calculated R Esmond -50 degrees MUSE SYSTEM Calculated T Esmond -59 degrees MUSE SYSTEM INTERPRETATION Sinus bradycardia [...] Modality Other Narrative 11/02/2023 4:57 PM EDT ?[facility] ? Cardiac Catheterization/Intervention Report ? Patient Name: Adin Santos ? Procedure Date: 11/01/2023 ? A #: [id number] ? Primary Physician: Rosa Dewey I ? Case #: [id number] ? File Name: [id number] ? Catheterization Order Number: [id number] ? [facility] ? Final Report [place], [place] ? Patient Name: ? Adin M. Goguen ?ID#: ?[id number] ? : ?1940 ? Procedure Date: ? [...] procedure was Urgent. The indication for ?the propagator laborer visit is ACS greater than 24 [...] premounted ? 3.50 x 15 mm Andrea Lafayette (RADHA) was deployed with a maximum ? [...] A premounted 3.50 x 15 mm Andrea Lafayette (RADHA) was deployed ? with a maximum [...] dose administered prior to arrival in the propagator laborer. ?Recommended anti-platelet/anti-thrombotic regimen: ?Continue aspirin 81 [...] was present for the entire procedure. ?Dr. Rsoa Dewey M.D. was present during the [...] Procedure Note Rosa Dewey MD - 12/12/2023 [facility] Cardiac C[facility]ter[facility]/Intervention Report Patient Name: Adin Santos Procedure Date: 11/01/2023 A #: [id number] Primary Physician: Rosa Dewey I Case #: [id number] File Name: [id number] Catheterization Order Number: [id number] [facility] FinalReport [place], [place] Patient Name: Adin Santos ID#:[id number] :1940 Procedure Date: November 01, 2023 Case [...] was designated as ASA Class III. The [facility] 4: Vulnerable. Diagnostic Tests: Prior Coronary Angiography: LV ejection fraction within 6 months is 65%. Electrocardiography: EKG was assessed by ECG. EKG was Abnormal. EKG showed other abnormality. Medications Prior to Procedure: Aspirin, Angiotensin II Receptor Rodrick and Statin. Indications for Diagnostic Cath: The priority of the diagnostic procedure was Urgent. The indicationfor the propagator laborer visit is ACS greater than 24 [...] 14 atmospheres. Apremounted 3.50 x 15 mm Alexandria Lafayette (RADHA) was deployed with amaximum inflation pressure [...] The lesion was predilated with a 3.00mm [id number] MM balloon with a maximum inflation pressure of 14atmospheres. A premounted 3.50 x 15 mm Alexandria Lafayette (RADHA) wasdeployed with a maximum inflation pressure [...] dose administered prior to arrival in the propagator laborer. Recommended anti-platelet/anti-thrombotic regimen: Continue aspirin 81 [...] TEST O RDERABLES [facility] [place] [place] [address] * (ABNORMAL) Differential, Automated (11/01/2023 3:09 AM EDT) Pathologist [facility] Neutrophil % 63.9 % [facility] Neutrophil Absolute 5.54 1.70 - 6.10 x10(3)/mc L [facility] Lymph % 20.0 % [facility] Lymphocytes Abs 1.7 0.9 - 3.2 x10(3)/mc L [facility] Monocyte % 11.9 % [facility] Monocyte Abs 1.0(H) 0.3 - 0.9 x10(3)/mc L [facility] Eos % 3.2 % [facility] Eosinophils Abs 0.3 0.0 - 0.4 x10(3)/ L [facility] Basophil % 0.5 % [facility] Baso Absolute 0.0 0.0 - 0.1 x10(3)/[facility] Immature Gran % 0.50 % [facility] Co de Phone Number [facility] [place] [place] [address] * (ABNORMAL) Hemogram (11/01/2023 3:09 AM EDT) [...] [facility]ICAL [facility] NRBC% auto 0.0 % [facility] NRBC Absolute 0.000 0.000 - 0.000 x10(3)/mc L [facility] Blood 11/01/2023 3:09 AM EDT 11/01/2023 3:29 AM EDT Narrative Resulting Agency Comment Spec In Lab Qamar Gallardo MD HEMATOLOGY ORDERABLE S Performing Organization Address City/[facility]/ZIP Co de Phone Number [facility] [place] [place] [address] * Phosphorus (11/01/2023 3:09 AM EDT) Phosphorus 2.5 2.5 - 4.5 mg/dL [facility] Blood 11/01/2023 3:09 AM EDT 11/01/2023 3:29 AM EDT Narrative Resulting Agency Comment Spec In Lab Rosa Cornejo MD CHEMISTRY ORDERABLE S Performing Organization Address City/[facility]/ZIP Co de Phone Number [facility] [place] [place] [address] * Magnesium (11/01/2023 3:09 AM EDT) Magnesium 0.82 0.69 - 1.07 mmol/L [facility] Blood 11/01/2023 3:09 AM EDT 11/01/2023 3:29 AM EDT Narrative Resulting Agency Comment Spec In Lab Rosa Cornejo MD CHEMISTRY ORDERABLE S [facility] [place] [place] [address] * (ABNORMAL) Basic Metabolic Panel (non-fasting) (11/01/2023 [...] CHEMISTRY ORDERABLE S [facility] [place] [address] * (ABNORMAL) Troponin (10/31/2023 2:46 PM EDT) [...] can be found in the [facility] Test Catalog Troponin - [facility] Test Catalog Reference: Fourth [place] Definition of Myocardial Infarction. Journal of the [place] [employer] 2018;72:2686-5942 Blood 10/31/2023 2:46 PM EDT 10/31/2023 2:55 PM EDT Narrative Resulting Agency Comment Spec In Lab Jean Laboy MD CHEMISTRY ORDERABLES Performing Organization Address City/[facility] Co de Phone Number [facility] [place] [address] * EKG 12 Lead (10/31/2023 1:07 PM EDT) Ventricular rate 54 BPM MUSE SYSTEM Atrial Rate 54 BPM MUSE SYSTEM P-R Interval 218 ms MUSE SYSTEM QRS Duration 92 ms MUSE SYSTEM Q-T Interval 540 ms MUSE SYSTEM QTC Calculated (Bezet) 512 ms MUSE SYSTEM Calculated P Esmond 85 degrees MUSE SYSTEM Calculated R Esmond -44 degrees MUSE SYSTEM Calculated T Esmond -69 degrees MUSE SYSTEM INTERPRETATION Sinus bradycardia [...] Cornejo MD ECG ORDERABLES Performing Organization Address [facility] Co de Phone Number MUSE SYSTEM * (ABNORMAL) Troponin (10/31/2023 11:37 AM EDT) Pathologist [facility] Troponin-T, High Sensitivity 580(H) <=14 ng/L [facility] [...] can be found in the [facility] Test Catalog Troponin - [facility] Test Catalog Reference: Fourth [place] Definition of Myocardial Infarction. Journal of the [employer] College [employer] 2018;72:9124-6618 Blood 10/31/2023 11:3 7 AM EDT 10/31/2023 11:50 AM EDT Narrative Resulting Agency Comment Spec In Lab Rosa Cornejo MD CHEMISTRY ORDERABLE S [facility] [place] [address] * ECHO COMPLETE (10/31/2023 8:52 AM EDT) Anatomical Region Laterality Modality Cardiac Other 10/31/2023 7:57 AM EDT Narrative 10/31/2023 9:45 AM EDT [address] [place] [address] ? Echocardiogram Report Name: ADIN SANTOS ? Study Date: 10/31/2023 07:57 AMBP: 106/76 mmHg ? Patient Location: [facility] 0481 A : 1940 ? Height: 163 cm ? Account: [id number] Age: 83 yrs ? Weight: 76 kg [...] is no prior echocardiogram for comparison. Procedure Complete-98552. Satisfactory quality. There is sinus bradycardia. Left [...] Note Edgard Wang MD - 10/31/2023 [address] [place] [address] Echocardiogram Report Name: ADIN SANTOS Study Date: 407:57 AMBP: 106/76 mmHg Patient Location: [address] : 1940 Height: 163 cm Account: [id number] Age: 83 yrs Weight: 76 kg Gender: [...] is no prior echocardiogram for comparison. Procedure Complete-60457. Satisfactory quality. There is sinus bradycardia. Left [...] can be found in the [facility] Test Catalog Troponin - [facility] Test Catalog Reference: Fourth [place] Definition of Myocardial Infarction. Journal of the [employer] 2018;72:3561-5608 Blood 10/31/2023 8:51 AM EDT 10/31/2023 9:12 AM EDT Narrative Resulting Agency Comment Spec In Lab Rosa Cornejo MD CHEMISTRY ORDERABLE S Performing Organization Address City/State/[facility] Co de Phone Number [facility] [place] [place] [address] * CARDIAC CATHETERIZATION (10/31/2023 8:10 AM EDT) Anatomical Region Laterality Modality Other Narrative 11/07/2023 9:42 AM EDT ?[facility] ? Cardiac [facility]ter[facility]/Intervention Report ? Patient Name: Adin Santos M. ? Procedure Date: 10/30/2023 ? A #: [id number] ? Primary Physician: Rosa Dewey I ? Case #: [id number] ? File Name: [id number] ? Catheterization Order Number: [id number] ? [facility] ? Final Report [place], [place] ? Patient Name: ? Adin M. Goguen ?ID#: ?[id number] ? : ?1940 ? Procedure Date: ? October 30, 2023 ? Case #: ? [id number] ? Room: ? 5 ? Case Physician: [...] procedure was Emergent. The indication for ?the propagator laborer visit is ACS less than or [...] ? A premounted 4.00 x 38 mm Alexandria Lafayette (RADHA) was deployed ? with a maximum [...] dose administered prior to arrival in the propagator laborer. ?Recommended anti-platelet/anti-thrombotic regimen: ?Continue aspirin 81 [...] Procedure Note Rosa Dewey MD - 12/05/2023 [facility] Cardiac C[facility]terization/Intervention Report Patient Name: Adin Santos Procedure Date: 10/30/2023 A #: [id number] Primary Physician: Rosa Dewey I Case #: [id number] File Name: [id number] Catheterization Order Number: [id number] [facility] FinalReport [place], [place] Patient Name: Adin Santos ID#:[id number] :1940 Procedure Date: October 30, 2023 Case [...] as ASA Class III. The [facility] clinical frailtyscale is 5: Mildly Frail. Diagnostic Tests: Electrocardiography: EKG was assessed by ECG. EKG was Abnormal. EKG showed STDeviation >= 0.5 mm, other abnormality and dynamic EKG changes. Medications Prior to Procedure: Aspirin, Angiotensin II Receptor Rodrick, Beta Rodrick andStatin. Indications for Diagnostic Cath: The priority of the diagnostic procedure was Emergent. Theindication for the propagator laborer visit is ACS less than or [...] 16atmospheres. A premounted 4.00 x 38 mm Alexandria Lafayette (RADHA) wasdeployed with a maximum inflation pressure [...] dose administered prior to arrival in the propagator laborer. Recommended anti-platelet/anti-thrombotic regimen: Continue aspirin 81 [...] * (ABNORMAL) Troponin (10/31/2023 4:21 AM EDT) [facility] Troponin-T, High Sensitivity 457(H) <=14 ng/L [facility] [...] can be found in the [facility] Test Catalog Troponin - [facility] Test Catalog Reference: Fourth [place] Definition of Myocardial Infarction. Journal of the [employer] College [employer]iology 2018;72:9267-2671 Blood 10/31/2023 4:21 AM EDT 10/31/2023 4:30 AM EDT Narrative Resulting Agency Comment Spec In Lab Rosa Cornejo MD CHEMISTRY ORDERABLE S Performing Organization Address City/State/[facility] Co de Phone Number [facility] [place] [place] [address] * (ABNORMAL) Differential, Automated (10/31/2023 3:05 AM EDT) Neutrophil % 71.7 % [facility] Neutrophil Absolute 8.21(H) 1.70 - 6.10 x10(3)/mc L [facility] Lymph % 16.9 % [facility] Lymphocytes Abs 1.9 0.9 - 3.2 x10(3)/mc L [facility] Monocyte % 9.4 % [facility] Monocyte Abs 1.1(H) 0.3 - 0.9 x10(3)/mc L [facility] Eos % 1.3 % [facility] Eosinophils Abs 0.2 0.0 - 0.4 x10(3)/mc L [facility] Basophil % 0.4 % [facility] Co de Phone Number [facility] [place] [address] * (ABNORMAL) Hemogram (10/31/2023 3:05 AM EDT) [...] MEDICAL CENTER [facility] NRBC% auto 0.0 % [facility] NRBC Absolute 0.000 0.000 - 0.000 x10(3)/mc L [facility] Blood 10/31/2023 3:05 AM EDT 10/31/2023 3:13 AM EDT Narrative Resulting Agency Comment Spec In Lab Qamar Gallardo MD HEMATOLOGY ORDERABLE S Performing Organization Address [facility] de Phone Number [facility] [place] [address] * (ABNORMAL) APTT (10/31/2023 3:05 AM EDT) [...] MD HEMATOLOGY ORDERABL ES Performing Organization Address [facility] Co de Phone Number [facility] [place] [place] [address] * (ABNORMAL) Prothrombin Time (10/31/2023 3:05 AM [...] HEMATOLOGY ORDERABL ES [facility] [place] [place] [address] * (ABNORMAL) Differential, Automated (10/31/2023 1:37 AM EDT) Neutrophil % 71.1 % [facility] Neutrophil Absolute 7.53(H) 1.70 - 6.10 x10(3)/mc L [facility] Lymph % 18.0 % [facility] Lymphocytes Abs 1.9 0.9 - 3.2 x10(3)/mc L [facility] Monocyte % 8.7 % [facility] Monocyte Abs 0.9 0.3 - 0.9 x10(3)/mc L [facility] Eos % 1.6 % [facility] Eosinophils Abs 0.2 0.0 - 0.4 x10(3)/mc L [facility] Basophil % 0.4 % [facility] [...] HEMATOLOGY ORDERABLE S [facility] [place] [address] * (ABNORMAL) Hemogram (10/31/2023 1:37 AM EDT) [...] MEDICAL CENTER [facility] NRBC% auto 0.0 % [facility] NRBC Absolute 0.000 0.000 - 0.000 x10(3)/mc L [facility] Blood 10/31/2023 1:37 AM EDT 10/31/2023 1:46 AM EDT Narrative Resulting Agency Comment Spec In Lab Qamar Gallardo MD HEMATOLOGY ORDERABLE S [facility] [place] [address] * Phosphorus (10/31/2023 1:37 AM EDT) [facility] Phosphorus 3.2 2.5 - 4.5 mg/dL [facility] Blood 10/31/2023 1:37 AM EDT 10/31/2023 1:46 AM EDT Narrative Resulting Agency Comment Spec In Lab Rosa Cornejo MD CHEMISTRY ORDERABLE S Performing Organization Address City/[facility]/ZIP Co de Phone Number [facility] [place] [address] * Magnesium (10/31/2023 1:37 AM EDT) [facility] Magnesium 0.83 0.69 - 1.07 mmol/L [facility] Blood 10/31/2023 1:37 AM EDT 10/31/2023 1:46 AM EDT Narrative Resulting Agency Comment Spec In Lab Rosa Cornejo MD CHEMISTRY ORDERABLE S Performing Organization Address City/[facility]/ZIP Co de Phone Number [facility] [place] [place] [address] * Basic Metabolic Panel (non-fasting) (10/31/2023 1:37 AM EDT) [facility] Glucose 114 65 - 199 mg/dL [facility] [...] CHEMISTRY ORDERABLE S [facility] [place] [place] [address] * (ABNORMAL) Troponin (10/31/2023 1:37 AM EDT) [...] can be found in the [facility] Test Catalog Troponin - [facility] Test Catalog Reference: Fourth [place] Definition of Myocardial Infarction. Journal of the [place] College [employer] 2018;72:2256-6375 Blood 10/31/2023 1:37 AM EDT 10/31/2023 1:46 AM EDT Narrative Resulting Agency Comment Spec In Lab Rosa Cornejo MD CHEMISTRY ORDERABLE S Performing Organization Address City/State/[facility] [place] [address] * EKG 12 Lead (10/31/2023 1:20 AM EDT) Ventricular rate 52 BPM MUSE SYSTEM Atrial Rate 52 BPM MUSE SYSTEM P-R Interval 224 ms MUSE SYSTEM QRS Duration 108 ms MUSE SYSTEM Q-T Interval 544 ms MUSE SYSTEM QTC Calculated (Bezet) 505 ms MUSE SYSTEM Calculated P Esmond 90 degrees MUSE SYSTEM Calculated R Esmond -57 degrees MUSE SYSTEM Calculated T Esmond -63 degrees MUSE SYSTEM INTERPRETATION Sinus bradycardia [...] Cornejo MD ECG ORDERABLES Performing Organization Address [facility] Co de Phone Number MUSE SYSTEM * EKG 12 Lead (10/30/2023 10:40 PM EDT) Ventricular rate 55 BPM MUSE SYSTEM Atrial Rate 55 BPM MUSE SYSTEM P-R Interval 232 ms MUSE SYSTEM QRS Duration 102 ms MUSE SYSTEM Q-T Interval 520 ms MUSE SYSTEM QTC Calculated (Bezet) 497 ms MUSE SYSTEM Calculated P Esmond 75 degrees MUSE SYSTEM Calculated R Esmond -53 degrees MUSE SYSTEM Calculated T Esmond -57 degrees MUSE SYSTEM INTERPRETATION Sinus bradycardia with 1st degree A-V block Left anterior fascicular block Moderate voltage criteria for LVH, may be normal variant ( R in aVL , [place] product ) T wave abnormality, consider inferior ischemia T wave abnormality, consider anterolateral ischemia Prolonged QT Abnormal ECG When compared with ECG of 30-OCT-2023 20:21, Incomplete right bundle branch block is no longer Present Confirmed by Charles COFFMAN, Butch ([id number]) on 11/01/2023 8:58:01 PM MUSE SYSTEM 10/30/2023 10:4 0 PM EDT 11/01/2023 8:58 PM EDT Rosa Cornejo MD ECG ORDERABLES Performing Organization Address [facility] Phone Number MUSE SYSTEM * XR Chest One View (10/30/2023 10:10 PM EDT) WORKSTATION ID [id number] RAD Anatomical Region Laterality Modality Chest N/A Digital Radiogra phy Impressions 10/30/2023 10:32 PM EDT 1. ??Examination limited by low lung volumes. 2. ??Findings suggesting pulmonary vascular congestion with possible mild interstitial edema. 3. ??Known ascending aortic aneurysm, as seen on recent CT. 4. ??Nonspecific widening mediastinum. This can be secondary to magnification from portable technique and low lung volumes. Findings similar to job forwarder radiograph from CT 10/30/2023. Thank you for letting us participate in the care of this patient. ??If you are a health care provider and have any questions regarding this report, please contact the number below. ??For patients who have questions please contact the health care partner that requested your imaging first. ? Narrative [...] and low lung volumes. Findings similar to job forwarder radiograph from CT 10/30/2023. Thank you for letting us participate in the care of this patient. If youare a health care provider and have any questions regarding this report,please contact the number below. For patients who have questions please contactthe health care partner that requested your imaging first. Rosa Cornejo MD IMG DX ORDERABLES * Green Tube HOLD (10/30/2023 10:05 PM EDT) [facility] Green Hold Sample in lab. [facility] Blood Venous Draw / Unknown 10/30/2023 10:05 PM EDT 10/30/2023 10:13 PM EDT Qamar Gallardo MD CHEMISTRY ORDERABLES [facility] [place] [place] [address] * (ABNORMAL) Differential, Automated (10/30/2023 10:05 PM EDT) [facility] Neutrophil % 76.6 % [facility] Neutrophil Absolute 6.94(H) 1.70 - 6.10 x10(3)/mc L [facility] Lymph % 15.4 % [facility] Lymphocytes Abs 1.4 0.9 - 3.2 x10(3)/mc L [facility] Monocyte % 6.1 % [facility] Monocyte Abs 0.6 0.3 - 0.9 x10(3)/mc L [facility] Eos % 1.1 % [facility] Eosinophils Abs 0.1 0.0 - 0.4 x10(3)/ L [facility] Basophil % 0.6 % [facility] [...] Immature Gran Absolute 0.02 0.00 - 0.04 x10(3)/[facility] Blood 10/30/2023 10:0 5 PM EDT 10/30/2023 10:12 PM EDT Narrative Resulting Agency Comment Spec In Lab Qamar Gallardo MD HEMATOLOGY ORDERABLE S [facility] [place] [address] * (ABNORMAL) Hemogram (10/30/2023 10:05 PM EDT) [...] MEDICAL CENTER [facility] NRBC% auto 0.0 % [facility] NRBC Absolute 0.000 0.000 - 0.000 x10(3)/mc L [facility] Blood 10/30/2023 10:0 5 PM EDT 10/30/2023 10:12 PM EDT Narrative Resulting Agency Comment Spec In Lab Qamar Gallardo MD HEMATOLOGY ORDERABLE S Performing Organization Address [facility] Co de Phone Number [facility] [place] [address] * Hemoglobin A1c (10/30/2023 10:05 PM EDT) [...] Mellitus, Diabetes Care 2013; 36: Suppl. 1, S60-85 Estimated Average Glucose See note mg/dL [facility] Comment: Estimated Average Glucose not appropriate for patients over 70 years of age. Blood 10/30/2023 10:0 5 PM EDT 10/30/2023 10:12 PM EDT Narrative Resulting Agency Comment Spec In Lab Rosa Cornejo MD CHEMISTRY ORDERABLE S Performing Organization Address City/[facility]/ZIP Co de Phone Number [facility] [place] [place] [address] * Lipid Panel (Reflex Direct LDL) (10/30/2023 10:05 PM EDT) Cholesterol, Total 218 mg/dL Dorene THURMAN [facility] Comment: Desirable: ? <200 mg/dL Borderline High: 200-239 mg/dL Higher: ?>fs=264 mg/dL Triglyceride 46 mg/dL [facility] Comment: Normal: ?<150 mg/dL Borderline High: 150-199 mg/dL High: ?200-499 mg/dL Very High: ? >up=078 mg/dL HDL Cholesterol 64 mg/dL [facility] Comment: Females: High Risk: <50 mg/dL Males: High Risk: <40 mg/dL LDL Cholesterol 145 mg/dL [facility] Comment: Desirable: ? <100 mg/dL Above Desirable: 100-129 mg/dL Borderline High: 130-159 mg/dL High: ?160-189 mg/dL Very High: ? >fw=277 mg/dL Lipid Interpretation See Note [facility] [...] individuals with atherosclerotic cardiovascular disease (ASCVD)or LDL >uf=668 mg/dL, use a high-intensity statin (40-80 mg [...] CHEMISTRY ORDERABLE S [facility] [place] [address] * TSH Baker (10/30/2023 10:05 PM EDT) Thyroid Stimulating Hormone 3.35 0.27 - 4.20 mcIU/mL [facility] Comment: Reference Interval (mcIU/mL): Females: ??First Trimester: 0.23-3.88 ??Second Trimester: 0.22-3.90 ??Third Trimester: 0.44-4.66 Blood 10/30/2023 10:0 5 PM EDT 10/30/2023 10:12 PM EDT Narrative Resulting Agency Comment Spec In Lab Rosa Cornejo MD CHEMISTRY ORDERABLE S [facility] [place] [address] * pro-Brain Natriuretic Peptide (10/30/2023 10:05 PM EDT) NT-proBNP 375 <=449 pg/mL [facility] Blood 10/30/2023 10:0 5 PM EDT 10/30/2023 10:12 PM EDT Narrative Resulting Agency Comment Spec In Lab Rosa Cornejo MD CHEMISTRY ORDERABLE S Performing Organization Address [facility]/ZIP Co de Phone Number [facility] [place] [place] [address] * (ABNORMAL) Comprehensive metabolic panel (non-fasting) (10/30/2023 10:05 PM EDT) Pathologist [facility] Glucose 121 65 - 199 mg/dL [facility] [...] MD CHEMISTRY ORDERABLE S Performing Organization Address [facility]/ZIP Co de Phone Number [facility] [place] [address] * Phosphorus (10/30/2023 10:05 PM EDT) Phosphorus 3.3 2.5 - 4.5 mg/dL [facility] Blood 10/30/2023 10:0 5 PM EDT 10/30/2023 10:12 PM EDT Narrative Resulting Agency Comment Spec In Lab Rosa Cornejo MD CHEMISTRY ORDERABLE S Performing Organization Address City/[facility]/ZIP Co de Phone Number [facility] [place] [place] [address] * Magnesium (10/30/2023 10:05 PM EDT) Magnesium 0.86 0.69 - 1.07 mmol/L [facility] Blood 10/30/2023 10:0 5 PM EDT 10/30/2023 10:12 PM EDT Narrative Resulting Agency Comment Spec In Lab Rosa Cornejo MD CHEMISTRY ORDERABLE S [facility] [place] [address] * (ABNORMAL) Troponin (10/30/2023 10:05 PM EDT) [...] can be found in the [facility] Test Catalog Troponin - [facility] Test Catalog Reference: Fourth [place] Definition of Myocardial Infarction. Journal of the [place] [employer] 2018;72:2468-8235 Blood 10/30/2023 10:0 5 PM EDT 10/30/2023 10:12 PM EDT Narrative Resulting Agency Comment Spec In Lab Rosa Cornejo MD CHEMISTRY ORDERABLE S [facility] [place] [address] * EKG 12 Lead (10/30/2023 8:21 PM EDT) Ventricular rate 49 BPM MUSE SYSTEM Atrial Rate 49 BPM MUSE SYSTEM P-R Interval 230 ms MUSE SYSTEM QRS Duration 96 ms MUSE SYSTEM Q-T Interval 526 ms MUSE SYSTEM QTC Calculated (Bezet) 475 ms MUSE SYSTEM Calculated P Esmond 98 degrees MUSE SYSTEM Calculated R Esmond -48 degrees MUSE SYSTEM Calculated T Esmond -51 degrees MUSE SYSTEM INTERPRETATION Sinus bradycardia [...] Cornejo MD ECG ORDERABLES Performing Organization Address City/[facility] Co de Phone Number [...] Shipley RN) [phone] (Given - Provider: Danica hSipley RN)1338 (Given - Provider: Lucretia Thurman, TANESHA) [...] potassium 0900 (New Bag - Provider: Mary Sweneey RN)1259 (Stopped - Provider: Lolly Leblanc, TANESHA)1350 [...] documented as of this encounter Care Teams Training And Development Project Leader Relationship Specialty Start Date End Date Rosie Mathews MD [address] [place] [address] PCP - General Family Medicine 11/25/17 11/23/23 documented as of this encounter
--- OUTSIDE RECORDS SUMMARY | 2024-04-24 17:20 | XMS_ITS | Clinical Summary ---
Author Organization [facility] Address [address] [place] [address] Care Team Providers Care Crucible Packer Name Role Phone Unavailable Primary Care Provider [...]
--- OUTSIDE RECORDS SUMMARY | 2024-04-24 17:20 | XMS_ITS | Encounter Summary ---
Author Organization [facility] Address [facility] [place] [address] Care Team Providers Care Machine Silver Stripper Name Role Phone Rosie Mathews MD Primary Care Provider [phone] Encounter Details Date Type Department Care Team (Late st Contact Info) Description 10/30/2023 5:00 PM EDT Ancillary Procedure Radiology Library at [facility] [place] [phone] Izaiah Meyer MD [facility] [place] [address] Social History Tobacco Use Types Packs/Day Years Used Date Smoking Tobacco: Former Smokeless Tobacco: Never Alcohol Use Standard Drinks/Week Comments Not Currently 0 (1 standard drink = 0.6 oz pur e alcohol) [facility] Inpatient Questions Answer Date Recorded [...] 11:00 AM EDT Office Visit Cardiology at [address] [place] [phone] Izaiah Meyer MD [facility] [place] [address] documented as of this encounter Procedures Procedure Name Priority Date/Time Associated Diagnosis Comments FILM LIBRARY STORAGE ONLY CT CHEST Routine 10/30/2023 4:59 PM EDT documented in this encounter Results * Film Library- Storage Only CT Chest (10/30/2023 4:59 PM EDT) Narrative [facility] - 10/30/2023 4:59 PM EDT This exam is auto-finalizing. It's purpose is for storage only. Izaiah Meyer MD IMG FILM LIBRARY ORD ERABLES Performing Organization Address City/State/[facility] Co de Phone Number [place], [place] documented in this encounter Visit Diagnoses Not on filedocumented in this encounter Care Teams Machine Silver Stripper Relationship Specialty Start Date End Date Rosie Mathews MD [address] [place] [address] PCP - General Family Medicine 11/25/17 11/23/23 documented as of this encounter
--- OUTSIDE RECORDS SUMMARY | 2024-04-24 17:20 | XMS_ITS | Encounter Summary ---
Author Organization [facility] [place] [address] Care Team Providers Care Recovery Coach Name Role Phone Rosie Mathews MD Primary Care Provider [phone] Reason for Visit * Auth/Cert (Routine) Specialty Diagnoses / Procedures Referred By Contac t Referred To Contact Diagnoses Unstable angina Procedures [place] [employer] [place] [employer] [facility] [employer] [facility] Referral ID Status Reason Start Date Expiration Date Visits Re quested Visits Authorized [id number] 1 1 Encounter Details Date Type Department Care Team (Latest Contact Info) Description 10/30/2023 5:00 PM EDT - 10/30/2023 5:10 PM EDT Hospital [place] [phone] Rosa Menjivar MD [facility] [place] [address] Discharge Disposition: Home Social History Tobacco Use Types Packs/Day Years Used Date Smoking Tobacco: Former Smokeless Tobacco: Never Alcohol Use Standard Drinks/Week Comments Not Currently 0 (1 standard drink = 0.6 oz pur e alcohol) [facility] Inpatient Questions Answer Date Recorded [...] AM EDT Office Visit Cardiology at [address] [place] [address] Izaiah Meyer MD [facility] [place] [address] documented as of this encounter Visit Diagnoses Not on filedocumented in this encounter Care Teams Recovery Coach Relationship Specialty Start Date End Date Rosie Mathews MD [address] [place] [address] PCP - General Family Medicine 11/25/17 11/23/23 documented as of this encounter
--- OUTSIDE RECORDS SUMMARY | 2024-04-24 17:20 | XMS_ITS | Encounter Summary ---
Author Organization [facility] Address [facility] [place] [address] Care Team Providers Care Instrument Mechanics Supervisor Name Role Phone Rosie aMthews MD Primary Care Provider [phone] Reason for Visit * Reason Comments Skin Lesion * Consultation (Routine) - Closed Specialty Diagnoses / Procedures Referred By John hunt Referred To Contact Dermatology Diagnoses facial skin lesion Procedures pt would like to be seen PRADEEP Rosie Mathews MD [address] [place] [address] [facility] Dermatology [address] [place] [address] Referral ID Status Reason Start Date Expiration Date V isits Requested Visits Authorized [id number] Closed Consult, Test & Treat Connection Center 10/25/2017 10/25/2018 1 1 Encounter Details Date Type Department Care Team (Late st Contact Info) Description 11/25/2017 4:30 PM EDT Office Visit Dermatology at [facility] [address] [place] [address] Call, Radu Go MD [facility] DR SHER[place] [address] Seborrheic keratosis; Fibrous papule of [...] presents with ??? Skin Lesion HPI: Lyla Goodrcih is a 77 y.o. female referred by [...] by Radu Tom MD Resident in Dermatology [facility] Patient seen in conjunction with staff radiology therapist: Terri Hale MD Section of Dermatology [facility] * Terri Hale MD - 11/25/2017 [...] 11:00 AM EDT Office Visit Cardiology at [address] [address] Izaiah Meyer MD [facility] [place] [address] documented as of this encounter Visit Diagnoses Diagnosis Seborrheic keratosis Other seborrheic keratosis Fibrous papule of nose Benign neoplasm of skin of other and unspecified parts of face Skin tags, multiple acquired documented in this encounter Care Teams Instrument Mechanics Supervisor Relationship Specialty Start Date End Date Rosie Mathews MD [address] [place] [address] PCP - General Family Medicine 11/25/17 11/23/23 documented as of this encounter
--- OUTSIDE RECORDS SUMMARY | 2024-04-24 17:20 | XMS_ITS | Encounter Summary ---
Author Organization [facility] Address [facility] [place] [address] Care Team Providers Care Cattle Shipper Name Role Phone Rosie Mathews MD Primary Care Provider [phone] Encounter Details Date Type Department Care Team (Late st Contact Info) Description 10/30/2023 External Results Transfer Center [facility] [place] [address] Social History Tobacco Use Types Packs/Day Years Used Date Smoking Tobacco: Former Smokeless Tobacco: Never Alcohol Use Standard Drinks/Week Comments Not Currently 0 (1 standard drink = 0.6 oz pur e alcohol) [facility] Utilities Answer Date Recorded In the past 12 months has e [employer], gas, oil, or water [employer] threatened to shut off services in your [...] 11:00 AM EDT Office Visit Cardiology at [address] [address] Izaiah Meyer MD [facility] [place] [place] [address] documented as of this encounter Procedures Procedure [...] on filedocumented in this encounter Care Teams Cattle Shipper Relationship Specialty Start Date End Date Rosie Mathews MD [address] [place] [address] PCP - General Family Medicine 11/25/17 11/23/23 documented as of this encounter
--- OUTSIDE RECORDS SUMMARY | 2024-04-24 17:20 | XMS_ITS | Encounter Summary ---
Author Organization [facility] Address [facility] [place] [address] Care Team Providers Care Slot Operations Director Name Role Phone Roise Mathews MD Primary Care Provider [phone] Encounter Details Date Type Department Care Team (Late st Contact Info) Description 10/30/2023 [place] [phone] Jose Lee MD [facility] [place] [address] Social History Tobacco Use Types Packs/Day Years [...] Date: 10/30/2023 Referring Provider: Bree Patient Location: [facility] HPI: 83 yoF w/ PMHx [...] in the patient condition. Jose Lee MD [place] Auditor documented in this encounter Plan of Treatment Upcoming Encounters Date Type Department Care Team (Late st Contact Info) Description 10/24/2024 11:00 AM EDT Office Visit Cardiology at [address] [place] [address] Izaiah Meyer MD [facility] [place] [address] documented as of this encounter Visit Diagnoses Not on filedocumented in this encounter Care Teams Slot Operations Director Relationship Specialty Start Date End Date Rosie Mathews MD [address] [place] [address] PCP - General Family Medicine 11/25/17 11/23/23 documented as of this encounter
--- OUTSIDE RECORDS SUMMARY | 2024-04-24 17:20 | XMS_ITS | Encounter Summary ---
Author Organization [facility] Address [facility] [place] [address] Care Team Providers Care Can Solderer Name Role Phone Rosie Mathews MD Primary Care Provider [phone] Reason for Visit * Consultation (Routine) - Closed Specialty Diagnoses / Procedures Referred By Contbruce hunt Referred To Contact Audiology Diagnoses Hearing assessment and treatment options Karson John MD [address] [place] [address] [facility] [address] [place] [phone] Referral ID Status Reason Start Date Expiration Date V isits Requested Visits Authorized [id number] Closed Consult, Test & Treat Connection Center 11/22/2017 11/22/2018 1 1 Encounter Details Date Type Department Care Team (Latest Contact Info) Description 11/30/2017 3:15 PM EDT Office Visit Audiology at [address] [address] Georgette Onofre AUD [facility] [place] [address] Sensorineural hearing loss, bilateral; Bilateral [...] [facility] in-[facility]aids nine years ago in [place], [place]. She stated she continues to experience [...] tone audiogram. SNR loss is the increased shdrmf-xr-jcmpo ratio required by an individual to understand [...] not hesitate to contact this Section at [phone] if there are questions regarding this report or its recommendations. Romeo Becker [place] [id number] Attachment: audiogram CC: MD Karson Loo MD Laurmarco a Catherine [address] [place] [phone] documented in this encounter Plan of Treatment Upcoming Encounters Date Type Department Care Team (Late st Contact Info) Description 10/24/2024 11:00 AM EDT Office Visit Cardiology at [address] [place] [address] Izaiah Meyer MD [facility] [place] [address] documented as of this encounter Procedures Procedure [...] tinnitus documented in this encounter Care Teams Can Solderer Relationship Specialty Start Date End Date Rosie Mathews MD [address] [place] [address] PCP - General Family Medicine 11/25/17 11/23/23 documented as of this encounter
--- OUTSIDE RECORDS SUMMARY | 2024-04-24 17:20 | XMS_ITS | Referral Summary ---
Author Organization [facility] Address [address] [place] [address] Care Team Providers Care Analyst Name Role Phone Unavailable Primary Care Provider [...]
--- OUTSIDE RECORDS SUMMARY | 2024-04-24 17:20 | XMS_ITS | Encounter Summary ---
Author Organization [facility] Address [facility] [place] [address] Care Team Providers Care Neuropsychology Director Name Role Phone Rosie Mathews MD Primary Care Provider [phone] Encounter Details Date Type Department Care Team (Late st Contact Info) Description 10/30/2023 [place] [address] Jose Lee MD [facility] [place] [address] Social History Tobacco Use Types Packs/Day Years Used Date Smoking Tobacco: Former Smokeless Tobacco: Never Alcohol Use Standard Drinks/Week Comments Not Currently 0 (1 standard drink = 0.6 oz pur e alcohol) [facility] Utilities Answer Date Recorded In the past 12 months has e [employer], gas, oil, or water [employer] threatened to shut off services in your [...] 11:00 AM EDT Office Visit Cardiology at [address] [address] Izaiah Meyer MD [facility] [place] [address] documented as of this encounter Visit Diagnoses Not on filedocumented in this encounter Additional Health Concerns Infection Onset Date Last Indicated Resolved Time Rule Out Respiratory 11/02/2023 11/02/2023 024 12:22 PM EDT Rule Out COVID-19 11/02/2023 11/02/2023 11/02/2023 12:22 PM EDT documented as of this encounter Care Teams Neuropsychology Director Relationship Specialty Start Date End Date Rosie Mathews MD [address] [place] [address] PCP - General Family Medicine 11/25/17 11/23/23 documented as of this encounter
--- OUTSIDE RECORDS SUMMARY | 2024-04-24 17:21 | XMS_ITS | Encounter Summary ---
Author Organization [facility] Address [address] [place] [address] Care Team Providers Care Legal Secretary Name Role Phone Unavailable Primary Care Provider Unavailabl e Reason for Visit * Reason Comments Hearing Loss tinnitus Encounter Details Date Type Department Care Team (Latest Contact Info) Description 01/15/2010 10:10 EDT Office Visit [address] [address] Unknown, Provider, Ray Orosco MD [address] [place] [address] [address] [place] [address] Sensorineural hearing loss, bilateral; Subjective tinnitus [...] Ray Farooq MD - 01/28/2010 1108 EDT [facility] PRO[facility]ESS/FOLLOWUP NOTE - 01/15/2010 CHIEF COMPLAINT: [...] Farooq MD - Ray Farooq MD - [facility] Job ID: SM Doc ID: [id number] Ext Doc ID: [id number] cc: Kirsten Bateman MD * Ray Farooq [...]
--- OUTSIDE RECORDS SUMMARY | 2024-04-24 17:21 | XMS_ITS | Encounter Summary ---
Author Organization [facility] Address [address] [place] [address] Care Team Providers Care Blood Bank Specialist Name Role Phone Unavailable Primary Care Provider Unavailabl e Encounter Details Date Type Department Care Team (Late st Contact Info) Description 01/27/2021 Lab Requisition [facility] Pathology & Laboratory Medicine - [facility] [address] [place] [address] Outr Resulting Lab, Provider Social History Tobacco [...] Outr Resulting Lab MICROBIOLOGY - GENERAL ORDERABLES [facility] [address] [place] [address] * COVID-19 TESTING (01/26/2021 16:45 EDT) COVID-19 rt-PCR Result Negative Negative 01/28/2021 13:[address] [facility] Comment: This test has [...] developed and its performance characteristics determined by [facility]. It has not been [...] testing. This test is based on the [facility] COVID-19 Emergency Use Authorization (EUA) assay, with minor modification as defined by the FDA Performed on the SmartShooto 7 Pro RT-PCR System. Performing Lab [facility] 01/28/2021 13:[address] [facility] Swab 01/26/2021 16:4 5 EDT 01/27/2021 15:46 EDT Provider Outr Resulting Lab MICROBIOLOGY - GENERAL ORDERABLES [facility] [address] [place] [address] documented in this encounter Visit Diagnoses Not on filedocumented in this encounter
--- OUTSIDE RECORDS SUMMARY | 2024-04-24 17:21 | XMS_ITS | Encounter Summary ---
Author Organization [facility] Address [address] [place] [address] Care Team Providers Care It Support Consultant Name Role Phone Unavailable Primary Care Provider Unavailabl e Encounter Details Date Type Department Care Team (Late st Contact Info) Description 01/14/2010 Abstract Used for ABSTRACTING Data [phone] Kirsten Bateman MD Social History Tobacco Use [...] OIL (FATTY ACID BASE MISC) [facility]Non-Drug; Combo Route) route. EPA CYANOCOBALAMIN (VITAMIN B-12 ORAL) Take by mouth. ASCORBIC ACID (VITAMIN C ORAL) Take by mouth. VITAMIN E ACETATE (VITAMIN E ORAL) Take by mouth. ASPIRIN ORAL Take by mouth. AMITRIPTYLINE HCL (AMITRIPTYLINE ORAL) Take by mouth. ATENOLOL ORAL Take by mouth. SIMVASTATIN ORAL Take by mouth. added in this encounter
--- OUTSIDE RECORDS SUMMARY | 2024-04-24 17:21 | XMS_ITS | Encounter Summary ---
Author Organization [facility] Address [address] [place] [address] Care Team Providers Care Maintenance Worker Name Role Phone Unavailable Primary Care Provider Unavailabl e Encounter Details Date Type Department Care Team (Late st Contact Info) Description 01/10/2008 Before PRISM Converted Visit (Maple) [facility] - Maple conversion [address] [place] [address] Ray Farooq MD [address] [place] [address] Social History Tobacco Use Types Packs/Day Years Used Date Smoking Tobacco: Never Assessed Sex and Gender Information Value Date Recorded Sex Assigned at Not on file Gender Identity Not on file Sexual Orientation Not on file documented as of this encounter Consult Notes * Ray Farooq MD - 03/21/2009 8479 EDT [facility] - 01/10/2008 Kirsten Bateman MD [facility] [address] [place] [address] Bateman: Chief complaint: Hearing loss. History of present illness: Khbtn-zlsoh-qizq-old female with along history of bilateral hearing [...] is a nonsmoker, nondrinker. She lives in [place]. Review of systems is significant for allergies, [...] Tosin Farooq MD - [facility] Job ID: [id number] Doc ID: [id number] cc: Kirsten Bateman MD cc: Kirsten Bateman MD documented in this encounter Plan of Treatment Not on file documented as of this encounter Visit Diagnoses Not on filedocumented in this encounter
[2024-04-24 17:48] LABS: Abs Immature Grans 0.01 10^3/uL (0.0-0.06); Absolute Basophil Count 0.05 10^3/uL (0.0-0.2); Absolute Eosinophil Count 0.26 10^3/uL (0.0-0.7); Absolute Lymphocyte Count 2.22 10^3/uL (1.2-3.4); Absolute Monocyte Count 0.93 10^3/uL (0.1-0.8); Basophils % 0.7 %; Eosinophils % 3.8 %; HCT 40.6 % (36.0-46.0); Immature Grans % 0.1 %; Lymphocytes % 32.8 %; MCH 34.1 pg (27.0-33.0); MCHC 34.5 % (32.0-36.0); MCV 99 fL (80-95); Monocytes % 13.7 %; Neutrophils % 48.9 %; Platelet Count 184 10^3/uL (130-400); RBC 4.11 10^6/uL (3.93-5.22); RDW 13.3 % (11.7-14.6); WBC 6.77 10^3/uL (4.4-10.8)
[2024-04-24 18:14] LABS: ALT 33 U/L (14-59); AST 28 U/L (15-37); Albumin 3.7 g/dL (3.4-5.0); Alkaline Phosphatase 49 U/L (46-116); Anion Gap 4.9 mmol/L (3-11); BUN 20 mg/dL (7-18); Bilirubin, Total 0.52 mg/dL (0.2-1.0); CO2 31.1 mmol/L (21.0-32.0); Calcium 10.7 mg/dL (8.5-10.1); Chloride 107 mmol/L (98-107); Estimated GFR 55.55 (mL/min/1.73m2); Glucose 78 mg/dL (74-106); Magnesium 1.8 mg/dL (1.8-2.4); Potassium 3.9 mmol/L (3.5-5.1); Sodium 143 mmol/L (136-145); TSH 3.03 uIU/mL (0.36-3.74); Total Protein 7.4 g/dL (6.4-8.2); Troponin I 17 ng/L (<or=51)
[2024-04-24] MEDS: Meclizine 25 MG TAB PO (18:14)
[2024-04-24 18:25] LABS: Bilirubin Negative (Negative); Blood Negative (Negative); Clarity Clear (Clear); Glucose Negative (Negative); Ketones Negative (Negative); Leukocyte Esterase Negative (Negative); Nitrite Negative (Negative); Specific Gravity 1.015 (1.005-1.025); Urobilinogen 0.2 mg/dL (Up to 0.2)
--- NOTE | 2024-04-24 18:55 | ED.GENADUL_ITS ---
Discharge Plan Disposition Patient Disposition: Admit to [facility] Condition: Stable Discharge Details Chief Complaint: Dizzy/Sync Clinical Impression: Tachyarrhythmia, Dizziness, Bradycardia, Hypertension Primary Care Provider: Masood Pierson ED Provider: Saw Bueno Home Meds and New Rx's Prescriptions: No Action ascorbate calcium (vitamin C) 500 MG tablet 1 tab PO DAILY aspirin 81 MG tablet,chewable 1 tab PO DAILY vitamin B complex [B-Complex] 1 EACH tablet 1 tab PO DAILY clopidogrel 75 mg tablet 75 mg PO DAILY nitroglycerin 0.4 mg tablet, sublingual 0.4 mg sublingual Q5M losartan 50 mg tablet 50 mg PO DAILY Patient Comments: TAKE ONE TABLET BY MOUTH EVERY DAY oxybutynin chloride 5 mg tablet 5 mg PO DAILY Patient Comments: TAKE ONE TABLET BY MOUTH AT BEDTIME NEEDED atorvastatin 80 mg tablet 80 mg PO DAILY spironolactone 25 mg tablet 25 mg PO DAILY metoprolol succinate 25 mg tablet extended release 24 hr 25 mg PO DAILY HPI General Date/Time Provider Initiated Documentation: 04/24/24 17:19 . Limitations to Documentation: no limitations . Information obtained by: patient . HPI Narrative: 83-year-old female with past medical history of [place], CAD, hypertension presents f or evaluation of dizzy and an increased heart rate. Patient reports that her heart rate is generally very low and she was started on a beta-kristy after her recent heart attack. She states that today she has been feeling [place] dizzy she describes this as not really dizzy just, may. She denies any headache. She has not had any loss of consciousness or falls. She reports that she checks her vital signs using a finger probe at home. She states that 2 times today her heart rate was over 100. These episodes were brief and not related to exertion and resolved without any intervention. At that time she was not having any palpitations she states that she generally feels pretty well. She reports that she was concerned because it was of so she called her doctor who told her to come to the emergency department. Related Data Home Medications ?Medication ?Instructions ?Recorded ?Confirmed ascorbate calcium (vitamin C) 500 1 tab PO DAILY 11/25/14 04/24/24 mg tablet aspirin 81 mg chewable tablet 1 tab PO DAILY 11/25/14 04/24/24 vitamin B complex (B-Complex 1 tab PO DAILY 11/25/14 04/24/24 tablet) losartan 50 mg tablet 50 mg PO DAILY 02/12/22 04/24/24 oxybutynin chloride 5 mg tablet 5 mg PO DAILY 02/12/22 04/24/24 clopidogrel 75 mg tablet 75 mg PO DAILY 11/18/23 04/24/24 nitroglycerin 0.4 mg sublingual 0.4 mg sublingual Q5M 11/18/23 04/24/24 tablet atorvastatin 80 mg tablet 80 mg PO DAILY 02/24/24 04/24/24 metoprolol succinate 25 mg 25 mg PO DAILY 02/24/24 04/24/24 tablet,extended release 24 hr spironolactone 25 mg tablet 25 mg PO DAILY 02/24/24 04/24/24 Allergies Allergy/AdvReac Type Severity Reaction Status Date / Time hydrocodone Allergy Intermediate Itching Unverified 04/24/24 17:14 oxycodone HCl (From Percocet) Allergy Intermediate Itching Unverified 04/24/24 17:14 prednisone Allergy Intermediate Swelling/Ed Unverified 04/24/24 17:14 acosta lisinopril Allergy Mild Other (See Verified 04/24/24 17:14 Comment) General Stated Complaint: Dizzy/Sync BRADLEY: 3 Exam Narrative Exam Narrative: Review of Systems: All systems reviewed & are unremarkable except as noted in HPI and below Well-developed, no acute distress NCAT PERRL, normal conjunctiva Bradycardic Unlabored respiratory effort Nondistended abdomen Extremities w/o deformity, no cyanosis, no edema No rashes or lesions. no focal neurologic deficits Appropriate mood and affect Course Vital Signs Vital signs: Vital Signs Temperature 36.3 C L 04/24/24 17:10 Pulse 46 L 04/24/24 17:10 Respiratory Rate 12 04/24/24 17:10 Blood Pressure 199/82 H 04/24/24 17:10 Pulse Oximetry 98 04/24/24 17:10 Temperature 36.3 C L 04/24/24 17:10 Temperature Source Oral 04/24/24 17:10 Pulse 46 L 04/24/24 17:10 Respiratory Rate 12 04/24/24 17:10 Respiratory Effort Normal, Non-Labored, Short of Breath 04/24/24 17:59 Respiratory Depth Normal 04/24/24 17:51 Respiratory Pattern Normal 04/24/24 17:51 Blood Pressure 199/82 H 04/24/24 17:10 Blood Pressure Position Sitting 04/24/24 17:10 Pulse Oximetry 98 04/24/24 17:10 Oxygen Delivery Method Room Air 04/24/24 17:10 Oxygen Flow Rate 0 04/24/24 17:10 Pain Level 0 04/24/24 17:10 Lab/Test Results Lab/Test Results: Laboratory Tests Range/Units 04/24/24 04/24/24 17:10 17:37 WBC (4.4-10.8) 10^3/uL 6.77 RBC (3.93-5.22) 10^6/uL 4.11 Hgb (11.2-15.7) g/dL 14.0 Hct (36.0-46.0) % 40.6 MCV (80-95) fL 99 H MCH (27.0-33.0) pg 34.1 H MCHC (32.0-36.0) % 34.5 RDW (11.7-14.6) % 13.3 Plt Count (130-400) 10^3/uL 184 MPV (8.0-11.0) fL 11.0 Immature Gran % % 0.1 Neutrophils % % 48.9 Lymphocytes % % 32.8 Monocytes % % 13.7 Eosinophils % % 3.8 Basophils % % 0.7 Nucleated RBC % (0.0-0.3) % 0.0 Absolute Neutrophils (1.2-6.7) 10^3/uL 3.30 Absolute Lymphocytes (1.2-3.4) 10^3/uL 2.22 Absolute Monocytes (0.1-0.8) 10^3/uL 0.93 H Absolute Eosinophils (0.0-0.7) 10^3/uL 0.26 Absolute Basophils (0.0-0.2) 10^3/uL 0.05 Sodium (136-145) mmol/L 143 Potassium (3.5-5.1) mmol/L 3.9 Chloride (98-107) mmol/L 107 Carbon Dioxide (21.0-32.0) mmol/L 31.1 Anion Gap (3-11) mmol/L 4.9 BUN (7-18) mg/dL 20 H Creatinine (0.55-1.02) mg/dL 1.0 Est GFR (CKD-EPI 2021) (mL/min/1.73m2) 55.55 Glucose (74-106) mg/dL 78 Calcium (8.5-10.1) mg/dL 10.7 H Magnesium (1.8-2.4) mg/dL 1.8 Total Bilirubin (0.2-1.0) mg/dL 0.52 AST (15-37) U/L 28 ALT (14-59) U/L 33 Alkaline Phosphatase (46-116) U/L 49 Troponin I (<or=51) ng/L 17 Total Protein (6.4-8.2) g/dL 7.4 Albumin (3.4-5.0) g/dL 3.7 TSH (0.36-3.74) uIU/mL 3.03 Urine Color (Yellow) Yellow Urine Clarity (Clear) Clear Urine pH (5-8) 6.0 Ur Specific [place] (1.005-1.025) 1.015 Urine Protein (Neg-Trace) mg/dL Negative Urine Ketones (Negative) mg/dL Negative Urine Blood (Negative) Negative Urine Nitrite (Negative) Negative Urine Bilirubin (Negative) Negative Urine Urobilinogen (Up to 0.2) mg/dL 0.2 Ur Leukocyte Esterase (Negative) Negative Urine Glucose (Negative) mg/dL Negative Medical Decision Making Emergent evaluation of dysrhythmia. Patient is noted to be bradycardic. Consistent with beta-kristy use. However reviewed her log and did note that she has 2 findings of tachycardia but was essentially asymptomatic during these times. Blood pressure did not change either. Will check lab work, including serial troponins and electrolytes. Will continue to monitor on telemetry. EKG reviewed and independently interpreted: Sinus bradycardia 44 normal axis no STEMI Lab work reviewed. White blood cell count 6, no anemia. Renal function within normal limits and the remainder of her CMP is unremarkable. The patient has had 2 troponins without significant elevation or delta change. Her urinalysis is not infected. I have been monitoring the patient on telemetry and noted that she has been remaining in the 50s sinus bradycardia, but she has had 2 episodes going up to what appears to be a sinus rhythm greater than 100. We have been attempting to get an EKG during this time and will continue to attempt to pull rhythm strips. Her blood pressure remains elevated. Currently 171/64. It seems that her symptoms and her vital sign abnormalities are likely secondary to medications. Discussed with the hospitalist, will bring in for telemetry monitoring to try and capture these tachycardic episodes and adjust medications Quality:SDOH Health Related Social Needs: Health related social needs details pt reports she has nt been sick in 2- years. reports [place] [facility] a [place]. PFSH All Active Problems (Updated 04/24/24 @ 20:45 by Saw Bueno MD) Hypertension (Chronic) Bradycardia (Acute) Dizziness (Acute) Headache (Acute) Mechanical low back pain (Acute) Spinal stenosis of lumbar region (Acute) Lumbar spondylosis (Acute) Tachyarrhythmia (Chronic) Tinnitus, bilateral (Acute) Sensorineural hearing loss of both ears (Acute) Medical History Neck pain First degree AV block Stress incontinence Hyperlipidemia Hematemesis Piriformis syndrome Hypertension Aortic arch aneurysm CAD (coronary artery disease), [place] coronary artery Surgical History History of rotator cuff surgery S/P KALLI-BSO Family History Mother Hypertension Stroke Heart disease Social History Smoking/Tobacco Use Status: Former Tobacco Use Smoking risk assessment performed?: Yes Alcohol Intake: never Drug use: Never Substance use type: does not use Housing: apartment Do you feel safe at home: Yes Do you feel safe in your relationship?: Yes
--- NOTE | 2024-04-24 19:30 | RT.EKG_ITS ---
APPROVED REPORT Exam: Resting ECG Reason for Exam: TACHY Patient Location: E HR:47 bpm ECG Measurements Heart Rate 47 AXIS NC 232 P 30 QRSd 110 QRS -45 QT 479 T 20 QTc 425 Conclusion Sinus bradycardia 47 no change from prior
[2024-04-24 19:40] LABS: Troponin I 16 ng/L (<or=51)
[2024-04-24 20:12] LABS: Troponin I 17 ng/L (<or=51)
--- NOTE | 2024-04-24 20:15 | RT.EKG_ITS ---
APPROVED REPORT Exam: Resting ECG Reason for Exam: tachycardia Patient Location: E HR:108 bpm ECG Measurements Heart Rate 108 AXIS [place] [id number] P [id number] QRSd 91 QRS -47 QT 437 T 9 QTc 586 Conclusion Junctional tachycardia 108 prolong QTC 586
--- NOTE | 2024-04-24 20:20 | HPE_ITS ---
Date of service: 04/24/24 Time of Service: 20:21 Assessment and Plan Assessment and plan (1) Tachyarrhythmia: Start date: 04/24/24 Status: Acute Assessment and plan: This is an 83-year-old lady with recurrent episodes of tachyarrhythmia just over 100. On hospital monitor in December 2023 as possible junctional or atrial fibrillation though this was not commented on the interpretation. She is having symptomatic tachycardia presently with weakness but no orthostatic symptoms and no chest pain though she has chronic back pain which she associates with her previous cardiac event. In October 2023 just after cardiac catheterization she represented to this hospital with back pain which resolved with nitroglycerin. At the time of her event with chronic ambulation she was having mostly back pain and was a question of a STEMI with transfer and intervention. She will be admitted for observation with her recurrent bursts of heart rate increased with baseline bradycardia on her medical regimen. She thinks that she may be overmedicated with these problems persisting only after hospitalized in October with the addition of 6 medications instead of only 1 or 2 antihypertensives. Metoprolol will be given at a lower dose and split dosing with monitoring of troponins overnight. She is a full code. (2) Bradycardia: Status: Chronic Assessment and plan: Patient has baseline bradycardia on low-dose metoprolol. I do not think this is causing symptoms though this may be contributing to her generalized feeling of weakness. She is not orthostatic. (3) Hypertension: Assessment and plan: On medical therapy with adjustment as needed during his hospital stay because of her heart rhythm. Qualifiers: Hypertension type: primary hypertension Qualified Code(s): I10 - Essential (primary) hypertension (4) CAD (coronary artery disease), [place] coronary artery: Assessment and plan: Status post stenting x 3 with patient on aspirin and Plavix and then cardiac rehab. Continue monitoring this hospitalization long-term continue rehabilitation. Exercise limited by her weight and chronic back pain. Qualifiers: Associated angina: with other forms of angina [place] vs. transplanted heart: [place] heart Qualified Code(s): I25.118 - Atherosclerotic heart disease of [place] coronary artery with other forms of angina pectoris (5) Hyperlipidemia: Assessment and plan: Continue high-dose statin. Weight loss and diet with exercise would be helpful. Qualifiers: Hyperlipidemia type: other hyperlipidemia Qualified Code(s): E78.49 - Other hyperlipidemia History of Present Illness History of Present Illness Chief Complaint: Tachycardia with generalized weakness and continued back pain with CAD. Narrative: This is an 83-year-old female patient who presented with tachycardia when taking her blood pressure at home which she is watching closely after an incident in October 2023 back pain prompting [place] [facility] [place] and 3 stents placed. That time she also had thoracic aortic aneurysm which was stable. She continues on cardiac rehab and monitor blood pressure closely. During presentation in October, she had back pain as a main presentation and this did seem to improve with treatment and a question of STEMI but denies a history of back pain over her scapular area especially on the right continuing despite pain management locally with injections for more degenerative disc disease of the lower spine. She is sedentary and overweight. She is anxious. In the ED she was stable with lab and EKG reassuring but with her symptoms she does have a burst of tachycardia with ED physician think it is warranted observation. I do long discussion with the ED physician as to safety patient returning home but with her anxiety and continued symptoms of weakness since October 2023, she will be observed overnight with trending lab and troponins. She did have a tachycardic rate which appear to be a junctional or ectopic atrial but was only just above 100 with her based on heart rate below 50. She is on low-dose metoprolol. But did have a 30-day event monitor in December 2023 which did reveal an episode of atrial fibrillation with rapid ventricular response though when reviewing the strip it appears similar to what was seen in the ED upon his presentation. She is not on anticoagulation other than Plavix and aspirin. The patient is very talkative and appears anxious and depressed though she is functioning well at home with family support. She is very sedentary mostly painting and reading. She was walking without resistance last year prior to her event in October 2023. She has always been overweight. She is a full code. Review of Systems Narrative: 13 point review of systems otherwise unrevealing or stable. Patient is slightly anxious with pressured speech. PFSH All Active Problems (Updated 04/24/24 @ 23:30 by Mike Nicholson) Hypertension (Chronic) Bradycardia (Chronic) Dizziness (Acute) Headache (Acute) Mechanical low back pain (Acute) Spinal stenosis of lumbar region (Acute) Lumbar spondylosis (Acute) Tachyarrhythmia (Acute) Tinnitus, bilateral (Acute) Sensorineural hearing loss of both ears (Acute) Medical History Neck pain First degree AV block Stress incontinence Hyperlipidemia Hematemesis Piriformis syndrome Hypertension Aortic arch aneurysm CAD (coronary artery disease), [place] coronary artery Surgical History History of rotator cuff surgery S/P KALLI-BSO Family History Mother Hypertension Stroke Heart disease Social History Smoking/Tobacco Use Status: Former Tobacco Use Smoking risk assessment performed?: Yes Alcohol Intake: never Drug use: Never Substance use type: does not use Housing: apartment Do you feel safe at home: Yes Do you feel safe in your relationship?: Yes Meds Allergies and Home Medications Allergies Allergy/AdvReac Type Severity Reaction Status Date / Time hydrocodone Allergy Intermediate Itching Unverified 04/24/24 17:14 oxycodone HCl (From Percocet) Allergy Intermediate Itching Unverified 04/24/24 17:14 prednisone Allergy Intermediate Swelling/Ed Unverified 04/24/24 17:14 acosta lisinopril Allergy Mild Other (See Verified 04/24/24 17:14 Comment) Home Medications ?Medication ?Instructions ?Recorded ?Confirmed ?Type ascorbate calcium (vitamin C) 500 1 tab PO DAILY 11/25/14 04/24/24 History mg tablet aspirin 81 mg chewable tablet 1 tab PO DAILY 11/25/14 04/24/24 History vitamin B complex (B-Complex 1 tab PO DAILY 11/25/14 04/24/24 History tablet) losartan 50 mg tablet 50 mg PO DAILY 02/12/22 04/24/24 History oxybutynin chloride 5 mg tablet 5 mg PO DAILY 02/12/22 04/24/24 History clopidogrel 75 mg tablet 75 mg PO DAILY 11/18/23 04/24/24 History nitroglycerin 0.4 mg sublingual 0.4 mg sublingual Q5M 11/18/23 04/24/24 History tablet atorvastatin 80 mg tablet 80 mg PO DAILY 02/24/24 04/24/24 History metoprolol succinate 25 mg 25 mg PO DAILY 02/24/24 04/24/24 History tablet,extended release 24 hr spironolactone 25 mg tablet 25 mg PO DAILY 02/24/24 04/24/24 History Exam Narrative Exam Narrative: General: Patient appears appropriate for age, alert and oriented x 3 and slightly anxious with pressured speech being very talkative. She appears comfortable. HEENT: Normocephalic, eyes with pupils equal and react to light symmetrically, extraocular movement intact and sclera anicteric. Oropharynx with moist mucosa. Neck: Supple without JVD. Back: kyphotic with no CVA tenderness. Decreased range of motion of upper and lower spine. No tenderness to palpation of the spine. Lungs: Fair aeration clear to auscultation and percussion. No focalizing rales or rhonchi. No expiratory wheeze. Breast: Exam deferred. Heart: Bradycardic rate with regular rhythm during my exam. Previously systolic murmur left lower border. No rubs or gallops. Abdomen: Obese contour, soft and nontender to palpation with no palpable hepatosplenomegaly. Bowel sounds positive all quadrants. Genitalia/rectal: Exam deferred. Skin: Normal color, warm and dry. Neuro: Cranial nerves II through XII gross intact, no focal motor deficits or tremor. Psych: Anxious with normal mood. Slightly pressured speech. No abnormal thought processes. Remote and recent memory intact. Results Labs 04/24/24 17:37 04/24/24 17:37 Labs: Laboratory Results - last 24 hr 04/24/24 04/24/24 04/24/24 17:10 17:37 19:10 WBC 6.77 RBC 4.11 Hgb 14.0 Hct 40.6 MCV 99 H MCH 34.1 H MCHC 34.5 RDW 13.3 Plt Count 184 MPV 11.0 Immature Gran % 0.1 Neutrophils % 48.9 Lymphocytes % 32.8 Monocytes % 13.7 Eosinophils % 3.8 Basophils % 0.7 Nucleated RBC % 0.0 Absolute Neutrophils 3.30 Absolute Lymphocytes 2.22 Absolute Monocytes 0.93 H Absolute Eosinophils 0.26 Absolute Basophils 0.05 Sodium 143 Potassium 3.9 Chloride 107 Carbon Dioxide 31.1 Anion Gap 4.9 BUN 20 H Creatinine 1.0 Est GFR (CKD-EPI 2020) 55.55 Glucose 78 Calcium 10.7 H Magnesium 1.8 Total Bilirubin 0.52 AST 28 ALT 33 Alkaline Phosphatase 49 Troponin I 17 16 Total Protein 7.4 Albumin 3.7 TSH 3.03 Urine Color Yellow Urine Clarity Clear Urine pH 6.0 Ur Specific [place] 1.015 Urine Protein Negative Urine Ketones Negative Urine Blood Negative Urine Nitrite Negative Urine Bilirubin Negative Urine Urobilinogen 0.2 Ur Leukocyte Esterase Negative Urine Glucose Negative 04/24/24 19:37 WBC RBC Hgb Hct MCV MCH MCHC RDW Plt Count MPV Immature Gran % Neutrophils % Lymphocytes % Monocytes % Eosinophils % Basophils % Nucleated RBC % Absolute Neutrophils Absolute Lymphocytes Absolute Monocytes Absolute Eosinophils Absolute Basophils Sodium Potassium Chloride Carbon Dioxide Anion Gap BUN Creatinine Est GFR (CKD-EPI 2020) Glucose Calcium Magnesium Total Bilirubin AST ALT Alkaline Phosphatase Troponin I 17 Total Protein Albumin TSH Urine Color Urine Clarity Urine pH Ur Specific [place] Urine Protein Urine Ketones Urine Blood Urine Nitrite Urine Bilirubin Urine Urobilinogen Ur Leukocyte Esterase Urine Glucose Last Vital Signs Temp 36.4 C L 04/24/24 18:30 Pulse 50 L 04/24/24 18:30 Resp 22 04/24/24 18:30 BP 179/62 H 04/24/24 18:30 Pulse Ox 98 04/24/24 18:30 Time Spent Time spent with Patient: >75 minutes Time was spent: preparing to see the patient(eg.review tests), obtaining and/or reviewing separately otained hiistory, ordering medications,tests, procedures, indepentently interpreting results, counseling the patient and care coordination
--- NOTE | 2024-04-24 20:48 | ED.PROG_ITS ---
Date of service: 04/24/24 Time of Service: 20:48 Medical Decision Making Were able to capture tachycardia on an EKG. Does appear to be a junctional tachycardia of 108. Of note the QTc is significantly prolonged at 586. On prior EKGs she has not had a prolonged QTc. Quality:SDOH Health Related Social Needs: Health related social needs details pt reports she has nt been sick in 2- years. reports once she was [place] [facility] felt she caught a cold. Discharge Plan Disposition Patient Disposition: Admit to [facility] Condition: Stable Discharge Details Clinical Impression: Tachyarrhythmia, Dizziness, Bradycardia, Hypertension Primary Care Provider: Masood Pierson ED Provider: Saw Bueno Home Meds and New Rx's Prescriptions: No Action ascorbate calcium (vitamin C) 500 MG tablet 1 tab PO DAILY aspirin 81 MG tablet,chewable 1 tab PO DAILY vitamin B complex [B-Complex] 1 EACH tablet 1 tab PO DAILY clopidogrel 75 mg tablet 75 mg PO DAILY nitroglycerin 0.4 mg tablet, sublingual 0.4 mg sublingual Q5M losartan 50 mg tablet 50 mg PO DAILY Patient Comments: TAKE ONE TABLET BY MOUTH EVERY DAY oxybutynin chloride 5 mg tablet 5 mg PO DAILY Patient Comments: TAKE ONE TABLET BY MOUTH AT BEDTIME NEEDED atorvastatin 80 mg tablet 80 mg PO DAILY spironolactone 25 mg tablet 25 mg PO DAILY metoprolol succinate 25 mg tablet extended release 24 hr 25 mg PO DAILY
[2024-04-24 20:54] LABS: Source Nasal/Nares
[2024-04-24 21:28] LABS: COVID-19 PCR Negative (Negative)
--- OUTSIDE RECORDS SUMMARY | 2024-04-24 21:48 | XMS_ITS | Encounter Summary ---
Author Organization [facility] [place] [address] Care Team Providers Care Contract Driver Name Role Phone Rosie Mathews MD Primary Care Provider [phone] Reason for Visit * Reason Onset Date Comments Referral 11/03/2023 Coronary Artery Disease 11/03/2023 Encounter Details Date Type Department Care Team (Late st Contact Info) Description 11/03/2023 Telephone Cardiology at [address] [phone] Andressa Machado, foundation maker; Coronary Artery Disease Social History Tobacco Use Types Packs/Day Years Used Date Smoking Tobacco: Former Smokeless Tobacco: Never Alcohol Use Standard Drinks/Week Comments Not Currently 0 (1 standard drink = 0.6 oz pur e alcohol) [facility] Utilities Answer Date Recorded In the past 12 months has e [employer] gas, oil, or water [employer] threatened to shut off services in your [...] were not included. [facility] V[facility] Clin[facility] [address] [place] [phone] Lyla was referred to this Cardiology clinic in [place] for post cardiac cath 10/31 for STEMI follow up as part of [place] [facility] documented in this encounter Plan of Treatment Upcoming Encounters Date Type Department Care Team (Late st Contact Info) Description 10/24/2024 11:00 AM EDT Office Visit Cardiology at [address] [place] [phone] Izaiah Meyer MD [facility] [place] [address] documented as of this encounter Visit Diagnoses Not on filedocumented in this encounter Care Teams Contract Driver Relationship Specialty Start Date End Date Rosie Mathews MD [address] [place] [address] PCP - General Family Medicine 11/25/17 11/23/23 documented as of this encounter
--- OUTSIDE RECORDS SUMMARY | 2024-04-24 21:48 | XMS_ITS | Encounter Summary ---
Author Organization [facility] Address [facility] [place] [address] Care Team Providers Care Gastroenterology Teacher Name Role Phone Masood Pierson MD Primary Care Provider [phone] Reason for Visit * Reason Comments Establish Care Coronary Artery Disease Encounter Details Date Type Department Care Team (Latest Contact Info) Description 11/24/2023 10:40 AM EDT Office Visit Cardiology at [address] [place] [address] Izaiah Meyer MD [facility] [place] [address] ASCVD (arteriosclerotic cardiovascular disease); Cardiomyopathy, ischemic; Ascending aorta dilatation; Hyperpiesia Social History Tobacco Use Types Packs/Day Years Used Date Smoking Tobacco: Former Smokeless Tobacco: Never Alcohol Use Standard Drinks/Week Comments Not Currently 0 (1 standard drink = 0.6 oz pur e alcohol) [facility] Utilities Answer Date Recorded In [...] Prox 60 Mid 80 3.5 x 15 [place] 3.5 x 15 Andrea RCA Mid AoCTO. Collats from Cx 4.0 x 38 [place] NB: RCA initially intervened; Cx 2 days [...] y.o. female. HPI: 83 f [facility] She has a recent history [...] [facility] SBP very well controlled at home [...] AM EDT Office Visit Cardiology at [address] [place] [phone] Izaiah Meyer MD [facility] [place] [address] documented as of this encounter Visit Diagnoses Diagnosis ASCVD (arteriosclerotic cardiovascular disease) Unspecified cardiovascular disease Cardiomyopathy, ischemic Other specified forms of chronic ischemic heart disease Ascending aorta dilatation Thoracic aortic ectasia Hyperpiesia Unspecified essential hypertension documented in this encounter Care Teams Gastroenterology Teacher Relationship Specialty Start Date End Date Masood Pierson MD [address] [place] [address] PCP - General Family Medicine 11/24/23 documented as of this encounter
--- OUTSIDE RECORDS SUMMARY | 2024-04-24 21:48 | XMS_ITS | Encounter Summary ---
Author Organization [facility] Address [facility] [place] [address] Care Team Providers Care Urgent Care Physician Name Role Phone Masood Pierson MD Primary Care Provider Encounter Details Date Type Department Care Team (Late st Contact Info) Description 02/27/2024 Telephone Cardiology at [address] [place] [address] Izaiah Meyer MD [facility] [place] [address] Social History Tobacco Use Types Packs/Day Years Used Date Smoking Tobacco: Former Smokeless Tobacco: Never Alcohol Use Standard Drinks/Week Comments Not Currently 0 (1 standard drink = 0.6 oz pur e alcohol) [facility] Utilities Answer Date Recorded In the past 12 months has [employer] electric, gas, oil, or water [employer] threatened to shut off services in [...] 3:30 PM EDT Lyla was seen at [facility] this past Tuesday for chest pain and returned to the ED Tuesday for back pain.Per patient both times it was determined she was having no cardiac issues but she was told to let her communication center coordinator know. At present she is not having [...] 11:00 AM EDT Office Visit Cardiology at [address] [phone] Izaiah Meyer MD [facility] [place] [address] documented as of this encounter Visit Diagnoses Not on filedocumented in this encounter Care Teams Urgent Care Physician Relationship Specialty Start Date End Date Masood Pierson MD [address] [place] [address] PCP - General Family Medicine 11/24/23 documented as of this encounter
--- OUTSIDE RECORDS SUMMARY | 2024-04-24 21:48 | XMS_ITS | Encounter Summary ---
Author Organization [facility] Address [facility] [place] [address] Care Team Providers Care Long Distance Operator Name Role Phone Rosie Mathews MD Primary Care Provider [phone] Encounter Details Date Type Department Care Team (Late st Contact Info) Description 11/18/2023 External Results Administration [facility] [place] [address] Social History Tobacco Use Types Packs/Day Years [...] AM EDT Office Visit Cardiology at [address] [address] Izaiah Meyer MD [facility] [place] [place] [address] documented as of this encounter Procedures Procedure Name Priority Date/Time Associated Diagnosis Comments ECG SCAN Routine 11/18/2023 4:50 PM EDT documented in this encounter Results * Scan Doc: ECG (11/18/2023 4:50 PM EDT) Historical Provider MEDIA MGR SCAN EX T ORDR/RSLT documented in this encounter Visit Diagnoses Not on filedocumented in this encounter Care Teams Long Distance Operator Relationship Specialty Start Date End Date Rosie Mathews MD [address] [place] [address] PCP - General Family Medicine 11/25/17 11/23/23 documented as of this encounter
--- OUTSIDE RECORDS SUMMARY | 2024-04-24 21:48 | XMS_ITS | Encounter Summary ---
Author Organization [facility] Address [facility] [place] [address] Care Team Providers Care Insurance Actuary Name Role Phone Masood Pierson MD Primary Care Provider [phone] Reason for Visit * Reason Comments Medication Refill Encounter Details Date Type Department Care Team (Late st Contact Info) Description 04/06/2024 [place] [address] Emile Robles MD [facility] [place] [address] Social History Tobacco Use Types Packs/Day Years Used Date Smoking Tobacco: Former Smokeless Tobacco: Never Alcohol Use Standard Drinks/Week Comments Not Currently 0 (1 standard drink = 0.6 oz pur e alcohol) [facility] Utilities Answer Date Recorded In the past 12 months has [employer] electric, gas, oil, or water company threatened [...] AM EDT Office Visit Cardiology at [address] [phone] Izaiah Meyer MD [facility] [place] [address] documented as of this encounter Visit Diagnoses Not on filedocumented in this encounter Care Teams Insurance Actuary Relationship Specialty Start Date End Date Masood Pierson MD [address] [place] [address] PCP - General Family Medicine 11/24/23 documented as of this encounter
--- OUTSIDE RECORDS SUMMARY | 2024-04-24 21:48 | XMS_ITS | Encounter Summary ---
Author Organization [facility] Address [facility] [place] [address] Care Team Providers Care Cap Coverer Name Role Phone Masood Pierson MD Primary Care Provider [phone] Encounter Details Date Type Department Care Team (Late st Contact Info) Description 02/24/2024 External Results Transfer Center [facility] [place] [phone] Social History Tobacco Use Types Packs/Day Years Used Date Smoking Tobacco: Former Smokeless Tobacco: Never Alcohol Use Standard Drinks/Week Comments Not Currently 0 (1 standard drink = 0.6 oz pur e alcohol) [facility] Utilities Answer Date Recorded In the past 12 months has [employer], gas, oil, or water [employer] threatened to shut off services in your [...] 11:00 AM EDT Office Visit Cardiology at [address] [place] [address] Izaiah Meyer MD [facility] [place] [address] documented as of this encounter Procedures Procedure Name Priority Date/Time Associated Diagnosis Comments MISC EXTERNAL CARDIOLOGY RESULT Routine 02/24/2024 11:10 PM EDT documented in this encounter Results * External Cardiology Result (02/24/2024 11:10 PM EDT) Anatomical Region Laterality Modality Other Historical Provider EXTERNAL CARDIOLO GY RESULT documented in this encounter Visit Diagnoses Not on filedocumented in this encounter Care Teams Cap Coverer Relationship Specialty Start Date End Date Masood Pierson MD [address] [place] [address] PCP - General Family Medicine 11/24/23 documented as of this encounter
--- OUTSIDE RECORDS SUMMARY | 2024-04-24 21:48 | XMS_ITS | Clinical Summary ---
Author Organization [facility] Address [facility] [place] [address] Care Team Providers Care Field Support Representative Name Role Phone Masood Pierson MD Primary Care Provider [phone] Allergies Active Allergy Reactions Criticality Noted Date [...] Prox 60 Mid 80 3.5 x 15 [place] 3.5 x 15 [place] RCA Mid AoCTO. Collats from Cx 4.0 [...] Team Description 04/06/2024 [place] [phone] Emile Robles MD 03/29/2024 11:20 AM EDT Office Visit Cardiology at [address] [address] Izaiah Meyer MD ASCVD (arteriosclerotic cardiovascular disease); Hyperpiesia; Cardiomyopathy, ischemic 03/29/2024 Travel 02/27/2024 Telephone Cardiology at [address] [address] Izaiah Meyer MD 02/24/2024 11:10 PM EDT Ancillary Procedure Radiology Library at [facility] [place] [address] Masood Pierson MD 02/24/2024 External [place] [phone] from Last 3 Months Social History Tobacco Use Types Packs/Day Years Used Date Smoking Tobacco: Former Smokeless Tobacco: Never Alcohol Use Standard Drinks/Week Comments Not Currently 0 (1 standard drink = 0.6 oz pur e alcohol) [facility] Utilities Answer Date Recorded In the [...] AM EDT Office Visit Cardiology at [address] [place] [phone] Izaiah Meyer MD [facility] [place] [address] Health Maintenance Due Date Last Done Comments [...] MD IMG FILM LIBRARY ORD ERABLES JACK[place], [place] * Scan Doc: Lab (02/24/2024 12:00 [...] Status decision made by: Patient Care Teams Field Support Representative Relationship Specialty Start Date End Date Masood Pierson MD [address] [place] [address] PCP - General Family Medicine 11/24/23
--- OUTSIDE RECORDS SUMMARY | 2024-04-24 21:48 | XMS_ITS | Encounter Summary ---
Author Organization [facility] Address [facility] [place] [address] Care Team Providers Care Focuser Name Role Phone Masood Pierson MD Primary Care Provider [phone] Encounter Details Date Type Department Care Team (Latest Contact Info) Description 11/24/2023 Travel Social History Tobacco Use Types Packs/Day Years Used Date Smoking Tobacco: Former Smokeless Tobacco: Never Alcohol Use Standard Drinks/Week Comments Not Currently 0 (1 standard drink = 0.6 oz pur e alcohol) [facility] Utilities Answer Date Recorded [...] AM EDT Office Visit Cardiology at [address] [place] [address] Izaiah Meyer MD [facility] [place] [address] documented as of this encounter Visit Diagnoses Not on filedocumented in this encounter Care Teams Focuser Relationship Specialty Start Date End Date Masood Pierson MD [address] [place] [address] PCP - General Family Medicine 11/24/23 documented as of this encounter
--- OUTSIDE RECORDS SUMMARY | 2024-04-24 21:48 | XMS_ITS | Encounter Summary ---
Author Organization [facility] Address [facility] [place] [address] Care Team Providers Care Cooper Apprentice Name Role Phone Masood Pierson MD Primary Care Provider [phone] Encounter Details Date Type Department Care Team (Late st Contact Info) Description 12/16/2023 Telephone Cardiology at [address] [place] [address] Izaiah Meyer MD [facility] [place] [address] Social History Tobacco Use Types Packs/Day Years Used Date Smoking Tobacco: Former Smokeless Tobacco: Never Alcohol Use Standard Drinks/Week Comments Not Currently 0 (1 standard drink = 0.6 oz pur e alcohol) [facility] Utilities Answer Date Recorded In the past 12 months has [employer] electric, gas, oil, or water [employer] threatened to shut off services in your [...] RN - 12/16/2023 11:25 AM EDT Denise, [facility] Cardiac business systems architect, called to report that at today's session [...] AM EDT Office Visit Cardiology at [address] [place] [address] Izaiah Meyer MD [facility] [place] [address] documented as of this encounter Visit Diagnoses Not on filedocumented in this encounter Care Teams Cooper Apprentice Relationship Specialty Start Date End Date Masood Pierson MD [address] [place] [address] PCP - General Family Medicine 11/24/23 documented as of this encounter
--- OUTSIDE RECORDS SUMMARY | 2024-04-24 21:48 | XMS_ITS | Encounter Summary ---
Author Organization [facility] Address [facility] [place] [address] Care Team Providers Care Waste Management Specialist Name Role Phone Masood Pierson MD Primary Care Provider [phone] Reason for Visit * Reason Comments Coronary Artery Disease Encounter Details Date Type Department Care Team (Latest Contact Info) Description 03/29/2024 11:20 AM EDT Office Visit Cardiology at [address] [place] [address] Izaiah Meyer MD [facility] [address] ASCVD (arteriosclerotic cardiovascular disease); Hyperpiesia; Cardiomyopathy, ischemic [...] Artery Disease HPI Last seen by Dr. Myeer 11/2023, at which time no changes were [...] 3.5 x 15 Andrea 3.5 x 15 [place] RCA Mid AoCTO. Collats from Cx 4.0 [...] AM EDT Office Visit Cardiology at [address] [address] Izaiah Meyer MD [facility] [address] documented as of this encounter Visit Diagnoses Diagnosis ASCVD (arteriosclerotic cardiovascular disease) Unspecified cardiovascular disease Hyperpiesia Unspecified essential hypertension Cardiomyopathy, ischemic Other specified forms of chronic ischemic heart disease documented in this encounter Care Teams Waste Management Specialist Relationship Specialty Start Date End Date Masood Pierson MD [address] [place] [address] PCP - General Family Medicine 11/24/23 documented as of this encounter
--- OUTSIDE RECORDS SUMMARY | 2024-04-24 21:48 | XMS_ITS | Encounter Summary ---
Author Organization [facility] Address [facility] [place] [address] Care Team Providers Care Policy Issue Clerk Name Role Phone Rosie Mathews MD Primary Care Provider Encounter Details Date Type Department Care Team (Late st Contact Info) Description 11/18/2023 Telephone Cardiology at [address] [address] Cheryl Guzman MD [facility] [place] [address] Social History Tobacco Use Types Packs/Day Years Used Date Smoking Tobacco: Former Smokeless Tobacco: Never Alcohol Use Standard Drinks/Week Comments Not Currently 0 (1 standard drink = 0.6 oz pur e alcohol) [facility] Utilities Answer Date Recorded In the past 12 months has e electric, gas, oil, or water [employer] threatened to shut off services in [...] Center Past Medical History: HTN HLD NSTEMI ([facility] 11/02, status-post revasc) Presenting Symptoms per OSH: Lyla Goodrich is a 83 y.o. woman who presents to [facility] with an episode of chest pain. Recent admission to [facility] with NSTEMI status-post PCI to [...] today's values. 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 Recommend admission for observation to assess for [...] AM EDT Office Visit Cardiology at [address] [phone] Izaiah Meyer MD [facility] [place] [address] documented as of this encounter Visit Diagnoses Not on filedocumented in this encounter Care Teams Policy Issue Clerk Relationship Specialty Start Date End Date Rosie Mathews MD [address] [place] [address] PCP - General Family Medicine 11/25/17 11/23/23 documented as of this encounter
--- OUTSIDE RECORDS SUMMARY | 2024-04-24 21:48 | XMS_ITS | Encounter Summary ---
Author Organization [facility] Address [facility] [place] [address] Care Team Providers Care Hvac Manager Name Role Phone Masood Pierson MD Primary Care Provider [phone] Encounter Details Date Type Department Care Team (Late st Contact Info) Description 02/24/2024 11:10 PM EDT Ancillary Procedure Radiology Library at [facility] [place] [phone] Masood Pierson MD [address] [place], [place] [id number] Social History Tobacco Use Types Packs/Day Years [...] 11:00 AM EDT Office Visit Cardiology at [address] [place] [address] Izaiah Meyer MD [facility] [place] [address] documented as of this encounter Procedures Procedure [...] IMG FILM LIBRARY ORD ERABLES [facility] [place], [place] documented in this encounter Visit Diagnoses Not on filedocumented in this encounter Care Teams Hvac Manager Relationship Specialty Start Date End Date Masood Pierson MD [address] [place] [address] PCP - General Family Medicine 11/24/23 documented as of this encounter
--- OUTSIDE RECORDS SUMMARY | 2024-04-24 21:48 | XMS_ITS | Encounter Summary ---
Author Organization [facility] Address [facility] [address] Care Team Providers Care Piston Maker Name Role Phone Masood Pierson MD Primary Care Provider [phone] Encounter Details Date Type Department Care Team (Latest Contact Info) Description 03/29/2024 Travel Social History Tobacco Use Types Packs/Day Years Used Date Smoking Tobacco: Former Smokeless Tobacco: Never Alcohol Use Standard Drinks/Week Comments Not Currently 0 (1 standard drink = 0.6 oz pur e alcohol) [facility] Utilities Answer Date Recorded In the [...] 11:00 AM EDT Office Visit Cardiology at [address] [place] [address] Izaiah Meyer MD [facility] [place] [address] documented as of this encounter Visit Diagnoses Not on filedocumented in this encounter Care Teams Piston Maker Relationship Specialty Start Date End Date Masood Pierson MD [address] [place] [address] PCP - General Family Medicine 11/24/23 documented as of this encounter
--- OUTSIDE RECORDS SUMMARY | 2024-04-24 21:49 | XMS_ITS | Encounter Summary ---
Author Organization [facility] [place] [address] Care Team Providers Care Hand Ii Cutter Name Role Phone Rosie Mathews MD Primary Care Provider [phone] Reason for Visit * Auth/Cert (Routine) Specialty Diagnoses / Procedures Referred By Contac t Referred To Contact Diagnoses Unstable angina Procedures [facility] [employer] [employer] [facility] [facility] Referral ID Status Reason Start Date Expiration Date Visits Re quested Visits Authorized [id number] 1 1 Encounter Details Date Type Department Care Team (Latest Contact Info) Description 10/30/2023 5:00 PM EDT - 10/30/2023 5:10 PM EDT Hospital En[place] [phone] Rosa Menjivar MD [facility] [place] [address] Discharge Disposition: Home Social History Tobacco Use [...] AM EDT Office Visit Cardiology at [address] [place] [address] Izaiah Meyer MD [facility] [place] [address] documented as of this encounter Visit Diagnoses Not on filedocumented in this encounter Care Teams Hand Ii Cutter Relationship Specialty Start Date End Date Rosie Mathews MD [address] [place] [address] PCP - General Family Medicine 11/25/17 11/23/23 documented as of this encounter
--- OUTSIDE RECORDS SUMMARY | 2024-04-24 21:49 | XMS_ITS | Encounter Summary ---
Author Organization [facility] Address [facility] [place] [address] Care Team Providers Care Tax Lawyer Name Role Phone Rosie Mathews MD Primary Care Provider Reason for Referral * Consultation (Routine) - Authorized Specialty Diagnoses / Procedures Referred By Contac t Referred To Contact Cardiology Diagnoses 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 Rosa Hugo MD [facility] [place] [address] Cardiac Rehab, [address] [place] [address] Referral ID Status Reason Start Date Expiration Date Visits Requested Visits Authorized [id number] Authorized Consult, Test & Treat Non PCP 11/03/2023 05/01/2024 36 36 * Home Health Care (Routine) - Authorized Specialty Diagnoses / Procedures Referred By Contac t Referred To Contact Diagnoses Unstable angina Rosa Hugo MD [facility] [place] [address] Referral ID Status Reason Start Date Expiration Date Visits Requested Visits Authorized [id number] Authorized Consult, Test & Treat 11/03/2023 05/01/2024 999 999 Reason for Visit * Auth/Cert (Routine) Specialty Diagnoses / Procedures Referred By John t Referred To Contact Diagnoses Unstable angina Chest pain NSTEMI Procedures CARDIAC CATHETERIZATION Rosa Dewey MD [facility] [place] [address] [facility] Referral ID Status Reason Start Date Expiration Date Visits Re quested Visits Authorized [id number] 1 1 Encounter Details Date Type Department Care Team (Latest Contact Info) Description 10/30/2023 5:11 PM EDT - 11/03/2023 5:13 PM EDT Hospital Encounter Heart and Vascular Unit Level 4 [place] [id number] Rosa Dewey MD [facility] [place] [address] Jean Laboy MD [facility] [place] [address] Rosa Hugo MD [facility] [place] [address] 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; Tachycardia; Unstable angina Discharge Disposition: Home Social History Tobacco Use Types Packs/Day Years Used Date Smoking Tobacco: Former Smokeless Tobacco: Never Alcohol Use Standard Drinks/Week Comments Not Currently 0 (1 standard drink = 0.6 oz pur e alcohol) [facility] Utilities Answer Date Recorded In the past 12 months has e [employer], gas, oil, or water [employer] threatened to shut off services in your [...] date and time: 11/03/2023 Attending Physician: Rosa Hguo MD Follow-up Recommendations for Providers: - Please [...] hypertension and hyperlipidemia who presented to [facility] as a transfer from [facility] as a possible STEMI alert with acute onset chest pain. The patient reports that her symptoms initially began on Tuesday when she was walking to [employer] and experienced bilateral arm heaviness while walking with no other symptoms. Then, this afternoon shereports developing bilateral achy shoulder pain and nonradiating substernal left-sided chest pressure that was 7/10 in severity [facility]. The patient denies any associated fevers, chills, [...] repeat, her TRU resolved. Cardiology at [facility] was consulted for transfer; the patient was loaded with aspirin 324 mg and ticagrelor 180 mg, started on a heparin drip, and given nitroglycerin with improvement in chest pain. Upon arrival to [facility], the patient was taken directly to the Sampler Pickup. 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 Recommended anti-platelet/anti-thrombotic regimen: Continue aspirin [...] and low lung volumes. Findings similar to scout leaser radiograph from CT 10/30/2023. Pending Studies and [...] 10:40 AM Izaiah Meyer MD Cardiology at [place] Arrive at: [facility] [address] [phone] Future Orders Complete By Expires Referral to Cardiac Rehab [[id number] Custom] As directed Process Instructions: If no [...] Santos for admission to Home Health. [address] [place] [address] (home) Date of : 1940 Inpatient DOCUMENTATION FOR VNA SERVICES (INCLUDING THOSE PATIENTS WITH MEDICARE COVERAGE REQUIRING HOME VNA SERVICES AND/OR HOSPICE SERVICES) PATIENT'S LOCATION: Adin Santos [address] [place] [address] (home) Cell: Telephone Information: Quality Engineering Manager's Name: self In discussion with the attending physician, it is certified that this patient is under their care and that they, or a Nurse Practitioner, Clinical Nurse specialist or Physician Secretary Administrative Assistant who is working directly with them, [...] regarding health issues HOME HEALTH CARE AGENCY: [facility] [address] [place] [address] START OF CARE: within 24-48 hours of [...] [address] / [facility] [address] . All VNA agencies which cover [...] MD / Dr. Masood Pierson [address] [place] [address] 11/09/23 1:55 PM arrival for 2:10 PM appointment Carton Filler: Izaiah Meyer MD [address] [place] [address] , 11/24/2023 10:40 AM Your Inpatient Medical Team at [facility] Name(s) of your inpatient provider(s): Attending physician: Rosa Hugo MD Resident physicians: Emile Robles MD; Elmer Tamez MD If you have non-emergent questions, prior to your follow-up visit call: Tuesday-Tuesday between the hours of 8AM-5PM please call the Cardiology Clinic [phone] to speak with a nurse. All other hours please call the Hospital Printed Circuit Boards Plasma Etcher [phone] and ask to speak to the process equipment operator on-call. Your Primary Care Provider Rosie Mathews MD [phone] For questions regarding this document or issues relating to this hospitalization on the Medical Service, please contact your inpatient physician through the [facility] [employer] Bo[employer] Plasma Etcher . Issues afterhours and on weekends will be handled by the Carton Filler staff on-call. Associated attestation - Rosa Hugo [...] MD / Dr. Masood Pierson [address] [place] [address] 11/09/23 1:55 PM arrival for 2:10 PM appointment Carton Filler: Izaiah Meyer MD [address] [place] [address] , 11/24/2023 10:40 AM Your Inpatient Medical Team at [facility] Name(s) of your inpatient provider(s): Attending physician: Rosa Hugo MD Resident physicians: Emile Robles MD; Elmer Tamez MD If you have non-emergent questions, prior to your follow-up visit call: Tuesday-Tuesday between the hours of 8AM-5PM please call the Cardiology Clinic [phone] to speak with a nurse. All other hours please call the Hospital [employer] Plasma Etcher [phone] and ask to speak to the process equipment operator on-call. Your Primary Care Provider Rosie Mathews MD [phone] documented in this encounter Medications at Time [...] hypertension and hyperlipidemia who presented to [facility] as a transfer from [facility] [...] hypertension and hyperlipidemia who presented to [facility] as a transfer from [facility] [...] Resident on Cardiology Service Cardiology S1 (Pager [phone]) Note written in conjunction with Claudio Perla [facility] Medical Student, MS3 Associated attestation - [...] Nirmala Webb - 11/01/2023 11:25 AM EDT Web Production Artist Encounter Note Patient Name: Adin Santos : [id number] MR#: [id number] Admit Date: 10/30/2023 5:11 PM Hospital Day 2 days Narrative: Self initiated visit to patient for Spiritual support in a regular unit rounds. Assessment: Patient is in the bathroom at the time of this visit. Not a good time for Commodity Analyst visit. Intervention and Outcome: An attempted [...] hypertension and hyperlipidemia who presented to [facility] as a transfer from [facility] [...] and low lung volumes. Findings similar to scout leaser radiograph from CT 10/30/2023. Scheduled Medications: [AUG [...] hypertension and hyperlipidemia who presented to [facility] as a transfer [facility] [...] Resident on Cardiology Service Cardiology S1 (Pager [phone]) Note written in conjunction with Claudio Perla [facility] Medical Student, MS3 Associated attestation - [...] hypertension and hyperlipidemia who presented to [facility] as a transfer from [facility] as a possible STEMI alert with acute onset chest pain. Active Problems: Active Hospital Problems Diagnosis Unstable angina Resolved Hospital Problems No resolved problems to display. 24 hr events: - Cath'd yesterday with lesion in the proximal RCA (initially thought it was 2ND GRADE TEACHER but they were ableto wire, balloon [...] and low lung volumes. Findings similar to scout leaser radiograph from CT 10/30/2023. TTE (10/30): Interpretation [...] hypertension and hyperlipidemia who presented to [facility] as a transfer from [facility] [...] Resident on Cardiology Service Cardiology S1 (Pager [phone]) Note written in conjunction with Claudio Perla [facility] Medical Student, MS3 Associated attestation - [...] PCP: Rosie Mathews MD PCP phone number: [phone] Date of Admission: 10/30/2023 ( Hospital Day 0 days ) Attending:Rosa Cornejo MD ID: Adin Santos is a 83 y.o. female PMH significant for hypertension and hyperlipidemia who presented to [facility] as a transfer from [facility] as a possible STEMI alert with acute onset chest pain. The patient reports that her symptoms initially began on Tuesday when she was walking to [facility] and experienced bilateral arm heaviness while walking with no other symptoms. Then, this afternoon shereports developing bilateral achy shoulder pain and nonradiating substernal left-sided chest pressure that was 7/10 in severity after [facility]. The patient denies any associated fevers, chills, [...] repeat, her TRU resolved. Cardiology at [facility] was consulted for transfer; the patient was loaded with aspirin 324 mg and ticagrelor 180 mg, started on a heparin drip, and given nitroglycerin with improvement in chest pain. Upon arrival to [facility], the patient was taken directly to the Sampler Pickup. 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 Findings similar to scout leaser radiograph from CT 10/30/2023. Assessment & Plan: Adin Santos is a 83 y.o. female PMH significant for hypertension and hyperlipidemia who presented to [facility] as a transfer from [facility] [...] Contact information for follow-up [facility] [place] [address] [place] [address] TANESHA BOYCE confirmed with [facility] that they will see the [...] N/A Patient is insured through: Primary Insurance: [employer] MANAGED MEDICARE Payor: [place] MEDICARE / Plan: [employer] MANAGED MEDICARE PPO / Product Type: [...] the room. Electrolytes replaced, see MAR. label drier sites remained C/D/I with baseline ecchymosis unchanged. Pt complained of back pain, lidocaine patch given. Right IV infiltrated during infusion, patient is marked with sharpie, IV removed. See flowsheet for I+O's and safety rounding. Patient is able to make needs known and call capps within reach. PLAN MOVING FORWARD: Monitor Tele, control BP, monitor laboratory technician sites, D/C Planning INDIVIDUALIZED FALL [...] above on RA. PT went to laboratory technician today. Left fem site oozed [...] FORWARD: Monitor Tele, control BP, monitor laboratory technician sites, D/C Planning INDIVIDUALIZED FALL [...] surrogate would be surrogate decision maker per [place] surrogate decision making law. (Only good for 180 days) Any patient receiving care in [place] must abide by [place] law. The hierarchy for surrogate decision making [...] toilet seat Home Address confirmed as: [address] [place] [id number] Social & Family Supports: All names listed below confirmed with patient as current and correct Extended Emergency Contact Information Primary Emergency Contact: Iris Downing Address: [address] [place], [place] [address] [place] [address] Mobile Relation: Child Secondary Emergency Contact: Karen More Address: [address] [facility] Mobile Relation: Child Current Care Provided by: self Provides Primary Care For: no one Caregiver if needed: child(emmanuel), adult Quality of Family relationships: involved, supportive Community Resources being provided currently: other (see comments) (receives [facility] services at home (1xweekly)) Behavioral Health History: [...] Insurance: N/A Prescription Coverage: Yes Preferred Pharmacy: [id number] - [place], [place] - [address] [facility] [address] [facility] [address] Status: Patient is a : No Primary Care Provider listed: Masood Pierson MD [phone] Patient/Caregiver Goals of Treatment: home when MR Potential Needs for Transition of Care: home health care Agency Referrals: Not Applicable I have met with the patient to: discuss discharge planning needs. provide the [facility], Office of Care Management letter from the Branch Manager Trainee pertaining to rehab referrals. provide a letter describing our affiliations within the [facility] and educate about their right to choose where referrals are sent. provide a list of Home Health Agencies / Durable Medical Equipment vendors which serve their preferred geographic area. provided patient with [facility] Star Quality Rating handout. They have requested referrals to: [facility] [address] [place] [address] Note routed to a Gun Club Manager who will communicate referrals to facilities [...] PO hydralazine added for BP control. label drier sites remain C/D/I, ecchymosis unchanged th roughout shift. See flowsheet for I+O's and safety rounding. Patient is able to make needs known and call capps within reach. PLAN MOVING FORWARD: Monitor Tele, control CP and BP, NPO at MD for cath, monitor laboratory technician sites, D/C Planning INDIVIDUALIZED FALL [...] 11:00 AM EDT Office Visit Cardiology at [address] [place] [address] Izaiah Meyer MD [facility] [place] [address] Scheduled Referrals Name Type Priority Associated Diagnoses [...] Absolute 5.28 1.70 - 6.10 x10(3)/ L [facility] Lymph % 15.2 % [facility] Lymphocytes Abs 1.3 0.9 - 3.2 x10(3)/[facility] Monocyte % 16.9 % [facility] Monocyte Abs 1.4(H) 0.3 - 0.9 x10(3)/[facility] Eos % 3.7 % [facility] Eosinophils Abs 0.3 0.0 - 0.4 x10(3)/[facility] Basophil % 0.5 % [facility] Baso Absolute 0.0 0.0 - 0.1 x10(3)/[facility] Immature Gran % 0.40 % [facility] Comment: Immature granulocytes(IG's)percentage and absolute count will include metamyelocytes, myelocytes, and promyelocytes. Blood smears from CBCs yielding IG's will be scanned manually for concordance. If this scan disagrees with the automated IG or if promyelocytes are noted, a manual differential will be performed. Immature Gran Absolute 0.03 0.00 - 0.04 x10(3)/ L [facility] Blood 11/03/2023 3:46 AM EDT 11/03/2023 4:11 AM EDT Narrative Resulting Agency Comment Spec In Lab Qamar Gallardo MD HEMATOLOGY ORDERABLE S [facility] [place] [address] * (ABNORMAL) Hemogram (11/03/2023 3:46 AM EDT) [...] [facility] NRBC% auto 0.0 % [facility] NRBC Absolute 0.000 0.000 - 0.000 x10(3)/ L [facility] Blood 11/03/2023 3:46 AM EDT 11/03/2023 4:11 AM EDT Narrative Resulting Agency Comment Spec In Lab Qamar Gallardo MD HEMATOLOGY ORDERABLE S [facility] [place] [address] * Phosphorus (11/03/2023 3:46 AM EDT) Phosphorus 3.2 2.5 - 4.5 mg/dL [facility] Comment:result rechecked-KS Blood 11/03/2023 3:46 AM EDT 11/03/2023 4:11 AM EDT Narrative Resulting Agency Comment Spec In Lab Rosa Cornejo MD CHEMISTRY ORDERABLE S Performing Organization Address City/[facility]/ZIP Co de Phone Number [facility] [place] [address] * Magnesium (11/03/2023 3:46 AM EDT) Magnesium 0.90 0.69 - 1.07 mmol/L [facility] Blood 11/03/2023 3:46 AM EDT 11/03/2023 4:11 AM EDT Narrative Resulting Agency Comment Spec In Lab Rosa Cornejo MD CHEMISTRY ORDERABLE S Performing Organization Address City/[facility]/ZIP Co de Phone Number [facility] [place] [address] * (ABNORMAL) Basic Metabolic Panel (non-fasting) (11/03/2023 [...] CHEMISTRY ORDERABLE S [facility] [place] [phone] * EKG 12 Lead (11/02/2023 12:44 PM EDT) Ventricular rate 83 BPM MUSE SYSTEM Atrial Rate 83 BPM MUSE SYSTEM P-R Interval 216 ms MUSE SYSTEM QRS Duration 90 ms MUSE SYSTEM Q-T Interval 384 ms MUSE SYSTEM QTC Calculated (Bezet) 451 ms MUSE SYSTEM Calculated P [place] 92 degrees MUSE SYSTEM Calculated R [place] -51 degrees MUSE SYSTEM Calculated T [place] -33 degrees MUSE SYSTEM INTERPRETATION Sinus rhythm [...] Tamez MD URINE ORDERABLES Performing Organization Address City/[facility] Co de Phone Number [facility] [place] [address] * (ABNORMAL) Urinalysis with reflex Culture (11/02/2023 [...] LABORATORY Leukocytes, Urine Dipstick Small(A) Negative [facility] Appearance, Urine Dipstick Cloudy(A) Clear [facility] Specific [place] Urine Automated >=1.030(A) 1.005 - 1.030 [facility] Color, Urine Dipstick Dark Yellow Yellow [facility] Reflex to Culture Yes [facility] Clean Catch Urine 11/02/2023 11:40 AM EDT 11/02/2023 12:04 PM EDT Narrative Resulting Agency Comment Spec In Lab Rosa Hugo MD URINE ORDERABLES [facility] [place] [phone] * Respiratory Panel PCR (11/02/2023 10:15 AM EDT) Respiratory Panel Source BITE BLOCK MAKER Swab [facility] Respiratory Panel PCR Negative Negative [facility] Comment: Respiratory Panels are performed on the [employer], using multiplexed PCR nucleic acid detection. ??Negative [...] diagnosis of COVID-19 is performed using the [employer] Respiratory Panel 2.1 ([employer]) as authorized by the FDA issued Emergency Use Authorization (EUA). This panel also tests for multiple other viral and bacterial pathogens. This assay is intended for In-vitro Diagnostic (IVD) use with nasopharyngeal swabs in viral transport media. The assay is performed based on the instructions for use and additional guidance provided by the FDA. Testing is performed in laboratories within the [facility], each of which is certified under [...] fact sheets at the following FDA website: https://www.fda.gov/medical-devices/nukllbvkkfk-jcuqioz-2629-kdsxs-86-wbyyoyglj- use-a gmxqegtgixooc-wzfqzuc-shlzpnl/yhsdo-gjogmplaerl-vpik Human Metapneumovirus Not Detected Not Detected [facility] [...] GEN ERAL ORDERABLES [facility] [place] [address] * XR Chest One View (11/02/2023 2:51 AM EDT) WORKSTATION ID [id number] RAD Anatomical Region Laterality Modality Chest N/A [...] who have questions please contact the health hiv/aids care nurse that requested your imaging first. [...] patients who have questions please contactthe health hiv/aids care nurse that requested your imaging first. Rosa Hugo MD IMG DX ORDERABLES * (ABNORMAL) Differential, Automated (11/02/2023 12:35 AM EDT) Neutrophil % 76.5 % [facility] Neutrophil Absolute 7.69(H) 1.70 - 6.10 x10(3)/mc L [facility] Lymph % 8.3 % [facility] Lymphocytes Abs 0.8(L) 0.9 - 3.2 x10(3)/ L [facility] Monocyte % 12.9 % [facility] Monocyte Abs 1.3(H) 0.3 - 0.9 x10(3)/mc L [facility] Eos % 1.4 % [facility] Eosinophils Abs 0.1 0.0 - 0.4 x10(3)/mc L [facility] Basophil % 0.4 % [facility] [...] HEMATOLOGY ORDERABLE S [facility] [place] [address] * (ABNORMAL) Hemogram (11/02/2023 12:35 AM EDT) [...] Mean Platelet Volume 11.4 7.6 - 12.9 [facility] NRBC% auto 0.0 % [facility] NRBC Absolute 0.000 0.000 - 0.000 x10(3)/ L [facility] Blood 11/02/2023 12:3 5 AM EDT 11/02/2023 12:43 AM EDT Narrative Resulting Agency Comment Spec In Lab Qamar Gallardo MD HEMATOLOGY ORDERABLE S [facility] [place] [address] * (ABNORMAL) Phosphorus (11/02/2023 12:35 AM EDT) [facility] Phosphorus 1.6(L) 2.5 - 4.5 mg/dL [facility] Blood 11/02/2023 12:3 5 AM EDT 11/02/2023 12:43 AM EDT Narrative Resulting Agency Comment Spec In Lab Rosa Cornejo MD CHEMISTRY ORDERABLE S Performing Organization Address City/[facility]/ZIP Co de Phone Number [facility] [place] [address] * Magnesium (11/02/2023 12:35 AM EDT) [facility] Magnesium 0.87 0.69 - 1.07 mmol/L [facility] Blood 11/02/2023 12:3 5 AM EDT 11/02/2023 12:43 AM EDT Narrative Resulting Agency Comment Spec In Lab Rosa Cornejo MD CHEMISTRY ORDERABLE S Performing Organization Address City/[facility]/ZIP Co de Phone Number [facility] [place] [address] * Basic Metabolic Panel (non-fasting) (11/02/2023 12:35 AM EDT) [facility] Glucose 125 65 - 199 mg/dL [facility] [...] CHEMISTRY ORDERABLE S [facility] [place] [address] * Blood culture (11/02/2023 12:35 AM EDT) Blood Culture No growth at 5 days. [facility] Blood 11/02/2023 12:3 5 AM EDT 11/02/2023 1:55 AM EDT Comment:#2 site ukn Narrative Resulting Agency Comment Spec In Lab Rosa Hugo MD MICROBIOLOGY - BLO OD ORDERABLES [facility] [place] [address] * Blood culture (11/02/2023 12:15 AM EDT) Blood Culture No growth at 5 days. [facility] Blood 11/02/2023 12:1 5 AM EDT 11/02/2023 1:54 AM EDT Comment:#1site unk Narrative Resulting Agency Comment Spec In Lab Rosa Hugo MD MICROBIOLOGY - BLO OD ORDERABLES Performing Organization Address City/[facility]/ZIP Co de Phone Number [facility] [place] [phone] * EKG 12 Lead (11/01/2023 10:10 PM EDT) Ventricular rate 139 BPM MUSE SYSTEM Atrial Rate 139 BPM MUSE SYSTEM P-R Interval 168 ms MUSE SYSTEM QRS Duration 84 ms MUSE SYSTEM Q-T Interval 286 ms MUSE SYSTEM QTC Calculated (Bezet) 435 ms MUSE SYSTEM Calculated R [place] -59 degrees MUSE SYSTEM Calculated T [place] -27 degrees MUSE SYSTEM INTERPRETATION Mid-RP tachycardia, [...] interpretation Confirmed by fellow MD Andrés, Enriqueta ([id number]) on 11/04/2023 7:57:50 AM Confirmed by MD Carrillo Danette ([id number]) on 11/04/2023 4:32:03 PM MUSE SYSTEM 11/01/2023 10:1 0 PM EDT 11/04/2023 4:32 PM EDT Rosa Cornejo MD ECG ORDERABLES Performing Organization Address [facility]/ZIP Co de Phone Number MUSE SYSTEM * (ABNORMAL) Hemogram (11/01/2023 10:06 PM EDT) White Blood Cell 10.4(H) 4.0 - 9.5 x10(3)/[facility] LABORATORY Red Blood Cell 4.11 4.00 - 5.21 x10(6)/[facility] LABORATORY Hemoglobin 14.0 11.7 - 15.5 [...] LABORATORY Platelet 197 145 - 357 x10(3)/[facility] LABORATORY RDW Standard Deviation 54.0(H) 37.0 - 46.0 [facility] LABORATORY RDW coefficient of variation 14.6(H) 11.5 - 14.1 % [facility] Mean Platelet Volume 11.2 7.6 - 12.9 fL [facility] NRBC% auto 0.0 % [facility] LABORATORY NRBC Absolute 0.000 0.000 - 0.000 x10(3)/[facility] LABORATORY Blood 11/01/2023 10:0 6 PM EDT 11/01/2023 10:22 PM EDT Narrative Resulting Agency Comment Spec In Lab Rosa Hugo MD HEMATOLOGY ORDERAB LES [facility] [place] [address] * POCT Glucose (11/01/2023 5:59 PM EDT) [facility] Glucose, POC 104 65 - 199 mg/dL [facility] Comment: Supplemental ranges: <140 mg/dL before meals <180 mg/dL all other times of the day Blood 11/01/2023 5:59 PM EDT 11/01/2023 5:59 PM EDT Rosa Hugo MD POINT OF CARE TEST ORDERABLES Performing Organization Address City/[facility]/ZIP Co de Phone Number [facility] [place] [address] * POCT Glucose (11/01/2023 5:35 PM EDT) Glucose, POC 85 65 - 199 mg/dL [facility] Comment: Supplemental ranges: <140 mg/dL before meals <180 mg/dL all other times of the day Blood 11/01/2023 5:35 PM EDT 11/01/2023 5:35 PM EDT Rosa Hugo MD POINT OF CARE TEST ORDERABLES Performing Organization Address [facility] Co de Phone Number [facility] [place] [address] * EKG 12 Lead (11/01/2023 3:22 PM EDT) Ventricular rate 59 BPM MUSE SYSTEM Atrial Rate 59 BPM MUSE SYSTEM P-R Interval 220 ms MUSE SYSTEM QRS Duration 94 ms MUSE SYSTEM Q-T Interval 428 ms MUSE SYSTEM QTC Calculated (Bezet) 423 ms MUSE SYSTEM Calculated P [place] 76 degrees MUSE SYSTEM Calculated R [place] -50 degrees MUSE SYSTEM Calculated T [place] -59 degrees MUSE SYSTEM INTERPRETATION Sinus bradycardia with sinus arrhythmia with 1st degree A-V block Left anterior fascicular block Moderate voltage criteria for LVH, may be normal variant ( R in aVL , Benson product ) Cannot rule out Inferior infarct [...] Modality Other Narrative 11/02/2023 4:57 PM EDT ?[facility] ? Cardiac Catheterization/Intervention Report ? Patient Name: Adin Santos Dorene. ? Procedure Date: 11/01/2023 ? A #: [id number] ? Primary Physician: Rosa Dewey I ? Case #: [id number] ? File Name: [id number] ? Catheterization Order Number: [id number] ? [facility] ? Final Report [place], [place] ? Patient Name: ? Adin Nadiya Santos ?ID#: ?[id number] ? : ?1940 ? Procedure Date: ? November 01, 2023 ? Case #: ? [id number] ? Room: ? 2 ? Case Physician: ? Rosa Dewey M.D. ? Start: ?13:53 ? Admission: ??10/30/2023 ? Referring Physician: ??Omaira H Union, M.D. ? Discharge: ??11/03/2023 ? Procedures: ?* [...] was Urgent. The indication for ?the laboratory technician visit is ACS greater than [...] ??A premounted ? 3.50 x 15 mm [place] Dickenson (RADHA) was deployed with a maximum ? [...] A premounted 3.50 x 15 mm Andrea Dickenson (RADHA) was deployed ? with a maximum [...] administered prior to arrival in the laboratory technician. ?Recommended anti-platelet/anti-thrombotic regimen: ?Continue aspirin 81 mg daily for indefinitely. ?Continue clopidogrel 75 mg daily for 12 months then stop. ?These recommendations are made at the time of the intervention. Patient ?and provider preferences or a changing clinical situation may require ?modification of this regimen. Consult [facility] Interventional Cardiology [...] Procedure Note Rosa Dewey MD - 12/12/2023 [facility] Cardiac Catheterization/Intervention Report Patient Name: Adin Santos Procedure Date: 11/01/2023 A #: [id number] Primary Physician: Rosa Dewey I Case #: [id number] File Name: [id number] Catheterization Order Number: [id number] [facility] FinalReport [place], [place] Patient Name: Adin Santos ID#:[id number] :1940 Procedure Date: November 01, 2023 Case [...] procedure was Urgent. The indicationfor the laboratory technician visit is ACS greater than [...] atmospheres. Apremounted 3.50 x 15 mm Andrea Dickenson (RADHA) was deployed with amaximum inflation pressure [...] The lesion was predilated with a 3.00mm [id number] MM balloon with a maximum inflation pressure of 14atmospheres. A premounted 3.50 x 15 mm [place] Dickenson (RADHA) wasdeployed with a maximum inflation pressure [...] administered prior to arrival in the laboratory technician. Recommended anti-platelet/anti-thrombotic regimen: Continue aspirin 81 mg daily for indefinitely. Continue clopidogrel 75 mg daily for 12 months then stop. These recommendations are made at the time of the intervention.Patient and provider preferences or a changing clinical situation mayrequire modification of this regimen. Consult [facility] Interventional Cardiologyfor [...] TEST O RDERABLES [facility] [place] [address] * (ABNORMAL) Differential, Automated (11/01/2023 3:09 AM EDT) [facility] Neutrophil % 63.9 % [facility] Neutrophil Absolute 5.54 1.70 - 6.10 x10(3)/mc L [facility] Lymph % 20.0 % [facility] Lymphocytes Abs 1.7 0.9 - 3.2 x10(3)/mc L [facility] Monocyte % 11.9 % [facility] Monocyte Abs 1.0(H) 0.3 - 0.9 x10(3)/mc L [facility] Eos % 3.2 % [facility] LABOR[facility] Eosinophils Abs 0.3 0.0 - 0.4 x10(3)/mc L [facility] Basophil % 0.5 % [facility] [...] MD HEMATOLOGY ORDERABLE S Performing Organization Address City/State/[facility] Co de Phone Number [facility] [place] [address] * (ABNORMAL) Hemogram (11/01/2023 3:09 AM EDT) White Blood Cell 8.7 4.0 - 9.5 x10(3)/[facility] LABORATORY Red Blood Cell 3.72(L) 4.00 - 5.21 x10(6)/ L [facility] Hemoglobin 12.5 [...] [facility] NRBC% auto 0.0 % [facility] NRBC Absolute 0.000 0.000 - 0.000 x10(3)/mc L [facility] Blood 11/01/2023 3:09 AM EDT 11/01/2023 3:29 AM EDT Narrative Resulting Agency Comment Spec In Lab Qamar Gallardo MD HEMATOLOGY ORDERABLE S Performing Organization Address City/[facility]/ZIP Co de Phone Number [facility] [place] [address] * Phosphorus (11/01/2023 3:09 AM EDT) Phosphorus 2.5 2.5 - 4.5 mg/dL [facility] Blood 11/01/2023 3:09 AM EDT 11/01/2023 3:29 AM EDT Narrative Resulting Agency Comment Spec In Lab Rosa Cornejo MD CHEMISTRY ORDERABLE S Performing Organization Address City/[facility]/ZIP Co de Phone Number [facility] [place] [address] * Magnesium (11/01/2023 3:09 AM EDT) Magnesium 0.82 0.69 - 1.07 mmol/L [facility] Blood 11/01/2023 3:09 AM EDT 11/01/2023 3:29 AM EDT Narrative Resulting Agency Comment Spec In Lab Rosa Cornejo MD CHEMISTRY ORDERABLE S Performing Organization Address City/[facility]/ZIP Co de Phone Number [facility] [place] [address] * (ABNORMAL) Basic Metabolic Panel (non-fasting) (11/01/2023 [...] CHEMISTRY ORDERABLE S [facility] [place] [address] * (ABNORMAL) Troponin (10/31/2023 2:46 PM EDT) [...] [facility] Test Catalog Reference: Fourth Shushan Definition of Myocardial Infarction. Journal of the [employer] 2018;72:7453-6097 Blood 10/31/2023 2:46 PM EDT 10/31/2023 2:55 PM EDT Narrative Resulting Agency Comment Spec In Lab Jean Laboy MD CHEMISTRY ORDERABLES [facility] [place] [address] * EKG 12 Lead (10/31/2023 1:07 PM EDT) Ventricular rate 54 BPM MUSE SYSTEM Atrial Rate 54 BPM MUSE SYSTEM P-R Interval 218 ms MUSE SYSTEM QRS Duration 92 ms MUSE SYSTEM Q-T Interval 540 ms MUSE SYSTEM QTC Calculated (Bezet) 512 ms MUSE SYSTEM Calculated P [place] 85 degrees MUSE SYSTEM Calculated R [place] -44 degrees MUSE SYSTEM Calculated T [place] -69 degrees MUSE SYSTEM INTERPRETATION Sinus bradycardia [...] [facility] Test Catalog Reference: Fourth Shushan Definition of Myocardial Infarction. Journal of the [employer] 2018;72:0703-2233 Blood 10/31/2023 11:3 7 AM EDT 10/31/2023 11:50 AM EDT Narrative Resulting Agency Comment Spec In Lab Rosa Cornejo MD CHEMISTRY ORDERABLE S [facility] [place] [address] * ECHO COMPLETE (10/31/2023 8:52 AM EDT) Anatomical Region Laterality Modality Cardiac Other 10/31/2023 7:57 AM EDT Narrative 10/31/2023 9:45 AM EDT [address] [place] [address] ? Echocardiogram Report Name: ADIN SANTOS ? Study Date: 10/31/2023 07:57 AMBP: 106/76 mmHg ? Patient Location: [place] 0481 A : 1940 ? Height: 163 cm ? Account: [id number] Age: 83 yrs ? Weight: 76 kg Gender: Female ?BSA: 1.8 m2 Ordering Physician: ROSA DEWEY Referring Physician: OMAIRA GIRON Performed By: HAFSA Carmichael Reason For Study: STEMI Interpreting Fellow: Raymond Warren. Exam Location: [facility]. Interpretation Summary -The left ventricle is [...] is no prior echocardiogram for comparison. Procedure Complete-90927. Satisfactory quality. There is sinus bradycardia. Left [...] Note Edgard Wang MD - 10/31/2023 [address] [place] [address] Echocardiogram Report Name: ADIN SANTOS Study Date: 407:57 AMBP: 106/76 mmHg Patient Location: [address] : 1940 Height: 163 cm Account: [id number] Age: 83 yrs Weight: 76 kg Gender: Female BSA: 1.8 m2 Ordering Physician: ROSA DEWEY Referring Physician: OMAIRA GIRON Performed By: HAFSA Carmichael Reason For Study: STEMI Interpreting Fellow: Raymond Warren. Exam Location: [facility]. Interpretation Summary -The left ventricle is [...] is no prior echocardiogram for comparison. Procedure Complete-99023. Satisfactory quality. There is sinus bradycardia. Left [...] * (ABNORMAL) Troponin (10/31/2023 8:51 AM EDT) [facility] Signature Troponin-T, High Sensitivity 571(H) <=14 ng/L [facility] [...] [facility] Test Catalog Reference: Fourth Shushan Definition of Myocardial Infarction. Journal of the [employer] 2018;72:9866-7318 Blood 10/31/2023 8:51 AM EDT 10/31/2023 9:12 AM EDT Narrative Resulting Agency Comment Spec In Lab Rosa Cornejo MD CHEMISTRY ORDERABLE S Performing Organization Address City/State/[facility] Co de Phone Number [facility] [place] [address] * CARDIAC CATHETERIZATION (10/31/2023 8:10 AM EDT) Anatomical Region Laterality Modality Other Narrative 11/07/2023 9:42 AM EDT ?[facility] ? Cardiac Catheterization/Intervention Report ? Patient Name: Adin Santos Nadiya ? Procedure Date: 10/30/2023 ? A #: [id number] ? Primary Physician: Rosa Dewey I ? Case #: [id number] ? File Name: [id number] ? Catheterization Order Number: [id number] ? [facility] ? Final Report [place], [place] ? Patient Name: ? Adin M. Goguen ?ID#: ?[id number] ? : ?1940 ? Procedure Date: ? [...] was Emergent. The indication for ?the laboratory technician visit is ACS less than [...] ? A premounted 4.00 x 38 mm [place] Dickenson (RADHA) was deployed ? with a maximum [...] administered prior to arrival in the laboratory technician. ?Recommended anti-platelet/anti-thrombotic regimen: ?Continue aspirin 81 mg daily for 12 months then stop. ?Continue clopidogrel 75 mg daily for indefinitely. ?These recommendations are made at the time of the intervention. Patient ?and provider preferences or a changing clinical situation may require ?modification of this regimen. Consult [facility] Interventional Cardiology [...] Procedure Note Rosa Dewey MD - 12/05/2023 [facility] Cardiac Catheterization/Intervention Report Patient Name: Adin Santos Procedure Date: 10/30/2023 A #: [id number] Primary Physician: Rosa Dewey I Case #: [id number] File Name: [id number] Catheterization Order Number: [id number] [facility] FinalReport [place], [place] Patient Name: Adin Pardojonatanjosue ID#:[id number] :1940 Procedure Date: October 30, 2023 Case [...] was designated as ASA Class III. The [facility] clinical frailtyscale is 5: Mildly Frail. Diagnostic Tests: Electrocardiography: EKG was assessed by ECG. EKG was Abnormal. EKG showed STDeviation >= 0.5 mm, other abnormality and dynamic EKG changes. Medications Prior to Procedure: Aspirin, Angiotensin II Receptor Kristy, Beta Kristy andStatin. Indications for Diagnostic Cath: The priority of the diagnostic procedure was Emergent. Theindication for the laboratory technician visit is ACS less than [...] The priority for the procedure was Emergent.The [facility] indication for the procedure was STEMI-Immediate PCI [...] A premounted 4.00 x 38 mm Andrea Dickenson (RADHA) wasdeployed with a maximum inflation pressure [...] administered prior to arrival in the laboratory technician. Recommended anti-platelet/anti-thrombotic regimen: Continue aspirin 81 mg daily for 12 months then stop. Continue clopidogrel 75 mg daily for indefinitely. These recommendations are made at the time of the intervention.Patient and provider preferences or a changing clinical situation mayrequire modification of this regimen. Consult [facility] Interventional Cardiologyfor [...] [facility] Test Catalog Reference: Fourth Shushan Definition of Myocardial Infarction. Journal of the [employer] 2018;72:1563-5974 Blood 10/31/2023 4:21 AM EDT 10/31/2023 4:30 AM EDT Narrative Resulting Agency Comment Spec In Lab Rosa Cornejo MD CHEMISTRY ORDERABLE S [facility] [place] [address] * (ABNORMAL) Differential, Automated (10/31/2023 3:05 AM EDT) Neutrophil % 71.7 % [facility] Neutrophil Absolute 8.21(H) 1.70 - 6.10 x10(3)/mc L [facility] Lymph % 16.9 % [facility] Lymphocytes Abs 1.9 0.9 - 3.2 x10(3)/mc L [facility] Monocyte % 9.4 % [facility] Monocyte Abs 1.1(H) 0.3 - 0.9 x10(3)/mc L [facility] Eos % 1.3 % [facility] Eosinophils Abs 0.2 0.0 - 0.4 x10(3)/mc L [facility] Basophil % 0.4 % [facility]TRAL [...] HEMATOLOGY ORDERABLE S [facility] [place] [address] * (ABNORMAL) Hemogram (10/31/2023 3:05 AM EDT) White Blood Cell 11.5(H) 4.0 - 9.5 x10(3)/ L [facility] Red Blood Cell 3.75(L) 4.00 - 5.21 x10(6)/[facility] LABORATORY Hemoglobin 12.6 11.7 - [...] [facility] NRBC% auto 0.0 % [facility] NRBC Absolute 0.000 0.000 - 0.000 x10(3)/ L [facility] Blood 10/31/2023 3:05 AM EDT 10/31/2023 3:13 AM EDT Narrative Resulting Agency Comment Spec In Lab Qamar Gallardo MD HEMATOLOGY ORDERABLE S Performing Organization Address [facility] Co de Phone Number [facility] [place] [address] * (ABNORMAL) APTT (10/31/2023 3:05 AM EDT) [...] MD HEMATOLOGY ORDERABL ES Performing Organization Address [facility] de Phone Number [facility] [place] [address] * (ABNORMAL) Prothrombin Time (10/31/2023 3:05 AM [...] ORDERABL ES Performing Organization Address [facility] Co de Phone Number [facility] [place] [address] * (ABNORMAL) Differential, Automated (10/31/2023 1:37 AM EDT) Pathologist [facility] Neutrophil % 71.1 % [facility] Neutrophil Absolute 7.53(H) 1.70 - 6.10 x10(3)/mc L [facility] Lymph % 18.0 % [facility] Lymphocytes Abs 1.9 0.9 - 3.2 x10(3)/ L [facility] Monocyte % 8.7 % [facility] Monocyte Abs 0.9 0.3 - 0.9 x10(3)/ L [facility] Eos % 1.6 % [facility] Eosinophils Abs 0.2 0.0 - 0.4 x10(3)/ L [facility] Basophil % 0.4 % [facility]ENTRAL [...] Resulting Agency Comment Spec In Lab Qamar aGllardo MD HEMATOLOGY ORDERABLE S [facility] [place] [address] * (ABNORMAL) Hemogram (10/31/2023 1:37 AM EDT) [...] [facility] NRBC% auto 0.0 % [facility] NRBC Absolute 0.000 0.000 - 0.000 x10(3)/mc L [facility] Blood 10/31/2023 1:37 AM EDT 10/31/2023 1:46 AM EDT Narrative Resulting Agency Comment Spec In Lab Qamar Gallardo MD HEMATOLOGY ORDERABLE S [facility] [place] [address] * Phosphorus (10/31/2023 1:37 AM EDT) Phosphorus 3.2 2.5 - 4.5 mg/dL [facility] Blood 10/31/2023 1:37 AM EDT 10/31/2023 1:46 AM EDT Narrative Resulting Agency Comment Spec In Lab Rosa Cornejo MD CHEMISTRY ORDERABLE S Performing Organization Address City/[facility]/ZIP Co de Phone Number [facility] [place] [address] * Magnesium (10/31/2023 1:37 AM EDT) Pathologist [facility] Magnesium 0.83 0.69 - 1.07 mmol/L [facility] Blood 10/31/2023 1:37 AM EDT 10/31/2023 1:46 AM EDT Narrative Resulting Agency Comment Spec In Lab Rosa Cornejo MD CHEMISTRY ORDERABLE S Performing Organization Address [facility] Co de Phone Number [facility] [place] [address] * Basic Metabolic Panel (non-fasting) (10/31/2023 1:37 [...] CHEMISTRY ORDERABLE S [facility] [place] [address] * (ABNORMAL) Troponin (10/31/2023 1:37 AM EDT) Pathologist [facility] Troponin-T, High Sensitivity 329(H) <=14 ng/L [facility] [...] [facility] Test Catalog Reference: Fourth Shushan Definition of Myocardial Infarction. Journal of the [employer] College [employer] 2018;72:5361-9735 Blood 10/31/2023 1:37 AM EDT 10/31/2023 1:46 AM EDT Narrative Resulting Agency Comment Spec In Lab Rosa Cornejo MD CHEMISTRY ORDERABLE S Performing Organization Address [facility]/ZIP Co de Phone Number [facility] [place] [address] * EKG 12 Lead (10/31/2023 1:20 AM EDT) Ventricular rate 52 BPM MUSE SYSTEM Atrial Rate 52 BPM MUSE SYSTEM P-R Interval 224 ms MUSE SYSTEM QRS Duration 108 ms MUSE SYSTEM Q-T Interval 544 ms MUSE SYSTEM QTC Calculated (Bezet) 505 ms MUSE SYSTEM Calculated P [place] 90 degrees MUSE SYSTEM Calculated R [place] -57 degrees MUSE SYSTEM Calculated T [place] -63 degrees MUSE SYSTEM INTERPRETATION Sinus bradycardia with 1st degree A-V block Pulmonary disease pattern Left anterior fascicular block Moderate voltage criteria for LVH, may be normal variant ( R in aVL , Benson product ) T wave abnormality, consider inferior ischemia T wave abnormality, consider anterolateral ischemia Prolonged QT Abnormal ECG When compared with ECG of 30-OCT-2023 22:40, No significant change was found Confirmed by Charles COFFAMN, Butch ([id number]) on 11/01/2023 8:58:03 PM MUSE SYSTEM 10/31/2023 1:20 AM EDT 11/01/2023 8:58 PM EDT Rosa Cornejo MD ECG ORDERABLES Performing Organization Address City/[facility]/ZIP Co de Phone Number MUSE SYSTEM * EKG 12 Lead (10/30/2023 10:40 PM EDT) Ventricular rate 55 BPM MUSE SYSTEM Atrial Rate 55 BPM MUSE SYSTEM P-R Interval 232 ms MUSE SYSTEM QRS Duration 102 ms MUSE SYSTEM Q-T Interval 520 ms MUSE SYSTEM QTC Calculated (Bezet) 497 ms MUSE SYSTEM Calculated P [place] 75 degrees MUSE SYSTEM Calculated R [place] -53 degrees MUSE SYSTEM Calculated T [place] -57 degrees MUSE SYSTEM INTERPRETATION Sinus bradycardia [...] Chest One View (10/30/2023 10:10 PM EDT) [employer] WORKSTATION ID [id number] DH RAD Anatomical Region Laterality Modality Chest [...] and low lung volumes. Findings similar to scout leaser radiograph from CT 10/30/2023. Thank you for letting us participate in the care of this patient. ??If you are a health care provider and have any questions regarding this report, please contact the number below. ??For patients who have questions please contact the health hiv/aids care nurse that requested your imaging first. [...] and low lung volumes. Findings similar to scout leaser radiograph from CT 10/30/2023. Thank you for letting us participate in the care of this patient. If youare a health care provider and have any questions regarding this report,please contact the number below. For patients who have questions please contactthe health hiv/aids care nurse that requested your imaging first. Rosa Cornejo MD IMG DX ORDERABLES * Green Tube HOLD (10/30/2023 10:05 PM EDT) [facility] Green Hold Sample in lab. [facility] Blood Venous Draw / Unknown 10/30/2023 10:05 PM EDT 10/30/2023 10:13 PM EDT Qamar Gallardo MD CHEMISTRY ORDERABLES [facility] [place] [address] * (ABNORMAL) Differential, Automated (10/30/2023 10:05 PM EDT) [facility] Neutrophil % 76.6 % [facility] Neutrophil Absolute 6.94(H) 1.70 - 6.10 x10(3)/mc L [facility] Lymph % 15.4 % [facility] Lymphocytes Abs 1.4 0.9 - 3.2 x10(3)/mc L [facility] Monocyte % 6.1 % [facility] Monocyte Abs 0.6 0.3 - 0.9 x10(3)/mc L [facility] Eos % 1.1 % [facility] Eosinophils Abs 0.1 0.0 - 0.4 x10(3)/mc L [facility] Basophil % 0.6 % CENTRAL [...] HEMATOLOGY ORDERABLE S [facility] [place] [address] * (ABNORMAL) Hemogram (10/30/2023 10:05 PM EDT) [...] [facility] NRBC% auto 0.0 % [facility] NRBC Absolute 0.000 0.000 - 0.000 x10(3)/mc L [facility] Blood 10/30/2023 10:0 5 PM EDT 10/30/2023 10:12 PM EDT Narrative Resulting Agency Comment Spec In Lab Qamar Gallardo MD HEMATOLOGY ORDERABLE S Performing Organization Address [facility] Co de Phone Number [facility] [place] [address] * Hemoglobin A1c (10/30/2023 10:05 PM EDT) [...] Mellitus, Diabetes Care 2013; 36: Suppl. 1, S67-90 Estimated Average Glucose See note mg/dL [facility] Comment: Estimated Average Glucose not appropriate for patients over 70 years of age. Blood 10/30/2023 10:0 5 PM EDT 10/30/2023 10:12 PM EDT Narrative Resulting Agency Comment Spec In Lab Rosa Cornejo MD CHEMISTRY ORDERABLE S Performing Organization Address [facility] Co de Phone Number [facility] [place] [address] * Lipid Panel (Reflex Direct LDL) (10/30/2023 10:05 PM EDT) Cholesterol, Total 218 mg/dL [facility] Comment: Desirable: ? <200 mg/dL Borderline High: 200-239 mg/dL Higher: ?>gp=400 mg/dL Triglyceride 46 mg/dL [facility] Comment: Normal: ?<150 mg/dL Borderline High: 150-199 mg/dL High: ?200-499 mg/dL Very High: ? >lk=845 mg/dL HDL Cholesterol 64 mg/dL [facility] Comment: Females: High Risk: <50 mg/dL Males: High Risk: <40 mg/dL LDL Cholesterol 145 mg/dL [facility] Comment: Desirable: ? <100 mg/dL Above Desirable: 100-129 mg/dL Borderline High: 130-159 mg/dL High: ?160-189 mg/dL Very High: ? >tv=645 mg/dL Lipid Interpretation See Note [facility] [...] ACC/AHA Guidelines (most recently Feliciano et al. [facility] 03/23/22): For individuals with atherosclerotic cardiovascular disease (ASCVD)or LDL >de=569 mg/dL, use a high-intensity statin (40-80 mg [...] MD CHEMISTRY ORDERABLE S Performing Organization Address [facility] Co de Phone Number [facility] [place] [address] * TSH [place] (10/30/2023 10:05 PM EDT) Thyroid Stimulating Hormone 3.35 0.27 - 4.20 mcIU/mL [facility] Comment: Reference Interval (mcIU/mL): Females: ??First Trimester: 0.23-3.88 ??Second Trimester: 0.22-3.90 ??Third Trimester: 0.44-4.66 Blood 10/30/2023 10:0 5 PM EDT 10/30/2023 10:12 PM EDT Narrative Resulting Agency Comment Spec In Lab Rosa Cornejo MD CHEMISTRY ORDERABLE S Performing Organization Address [facility]/ZIP Co de Phone Number [facility] [place] [address] * pro-Brain Natriuretic Peptide (10/30/2023 10:05 PM EDT) NT-proBNP 375 <=449 pg/mL [facility] Blood 10/30/2023 10:0 5 PM EDT 10/30/2023 10:12 PM EDT Narrative Resulting Agency Comment Spec In Lab Rosa Cornejo MD CHEMISTRY ORDERABLE S [facility] [place] [address] * (ABNORMAL) Comprehensive metabolic panel (non-fasting) (10/30/2023 [...] MD CHEMISTRY ORDERABLE S Performing Organization Address [facility]/ZIP Co de Phone Number [facility] [place] [address] * Phosphorus (10/30/2023 10:05 PM EDT) Phosphorus 3.3 2.5 - 4.5 mg/dL [facility] Blood 10/30/2023 10:0 5 PM EDT 10/30/2023 10:12 PM EDT Narrative Resulting Agency Comment Spec In Lab Rosa Cornejo MD CHEMISTRY ORDERABLE S Performing Organization Address [facility]/ZIP Co de Phone Number [facility] [place] [address] * Magnesium (10/30/2023 10:05 PM EDT) Magnesium 0.86 0.69 - 1.07 mmol/L [facility] Blood 10/30/2023 10:0 5 PM EDT 10/30/2023 10:12 PM EDT Narrative Resulting Agency Comment Spec In Lab Rosa Cornejo MD CHEMISTRY ORDERABLE S Performing Organization Address City/[facility]/ZIP Co de Phone Number [facility] [place] [address] * (ABNORMAL) Troponin (10/30/2023 10:05 PM EDT) [...] [facility] Test Catalog Reference: Fourth Shushan Definition of Myocardial Infarction. Journal of the [employer] 2018;72:8114-6836 Blood 10/30/2023 10:0 5 PM EDT 10/30/2023 10:12 PM EDT Narrative Resulting Agency Comment Spec In Lab Rosa Cornejo MD CHEMISTRY ORDERABLE S [facility] [place] [address] * EKG 12 Lead (10/30/2023 8:21 PM EDT) [facility] Ventricular rate 49 BPM MUSE SYSTEM Atrial Rate 49 BPM MUSE SYSTEM P-R Interval 230 ms MUSE SYSTEM QRS Duration 96 ms MUSE SYSTEM Q-T Interval 526 ms MUSE SYSTEM QTC Calculated (Bezet) 475 ms MUSE SYSTEM Calculated P [place] 98 degrees MUSE SYSTEM Calculated R [place] -48 degrees MUSE SYSTEM Calculated T [place] -51 degrees MUSE SYSTEM INTERPRETATION Sinus bradycardia [...] documented as of this encounter Care Teams Tax Lawyer Relationship Specialty Start Date End Date Rosie Mathews MD [address] [place] [address] PCP - General Family Medicine 11/25/17 11/23/23 documented as of this encounter
--- OUTSIDE RECORDS SUMMARY | 2024-04-24 21:49 | XMS_ITS | Encounter Summary ---
Author Organization [facility] [place] [address] Care Team Providers Care Supervisor Yard Name Role Phone Rosie Mathews MD Primary Care Provider [phone] Reason for Visit * Auth/Cert (Routine) Specialty Diagnoses / Procedures Referred By Contbruce t Referred To Contact Diagnoses Unstable angina Chest pain NSTEMI Procedures CARDIAC CATHETERIZATION Rosa Dewey MD [facility] [place] [address] [facility] Referral ID Status Reason Start Date Expiration Date Visits Re quested Visits Authorized [id number] 1 1 Encounter Details Date Type Department Care Team (Late st Contact Info) Description 11/01/2023 3:33 PM EDT - 11/01/2023 5:03 PM EDT Surgery [place] [address] Rosa Dewey MD [facility] [address] [place], [place] [id number] CARDIAC CATHETERIZATION Social History Tobacco Use Types Packs/Day Years Used Date Smoking Tobacco: Former Smokeless Tobacco: Never Alcohol Use Standard Drinks/Week Comments Not Currently 0 (1 standard drink = 0.6 oz pur e alcohol) [facility] Utilities Answer Date Recorded In the past [...] for hypertension and hyperlipidemia who presented to [facility] as a transfer from [facility] as a possible STEMI alert with acute onset chest pain. The patient reports that her symptoms initially began on Tuesday when she was walking to [facility] and experienced bilateral arm heaviness [...] on repeat, her TRU resolved. Cardiology at [facility] was consulted for transfer; the patient was loaded with aspirin 324 mg and ticagrelor 180 mg, started on a heparin drip, and given nitroglycerin with improvement in chest pain. Upon arrival to [facility], the patient was taken directly to the Vehicle Glass Technician. Two lesions were discovered: one in the prox RCA (felt to almost be a OIL DISPATCHER but they were able to wire, balloon, [...] prior to arrival in the medical laboratory specialist. Recommended anti-platelet/anti-thrombotic regimen: Continue aspirin 81 [...] and low lung volumes. Findings similar to sports psychologist radiograph from CT 10/30/2023. Pending Studies and [...] 10:40 AM Izaiah Meyer MD Cardiology at [place] Arrive at: [facility] [address] [phone] Future Orders Complete By Expires Referral to Cardiac Rehab [[id number] Custom] As directed Process Instructions: If no progress note charted, please enter Clinical details in comments. Scheduling Instructions: Questions: My question or request is: STEMI. Cardiac rehab at [facility]. Referral to Home Health [[id number] Custom] As directed Process Instructions: If no progress note charted, please enter Clinical details in comments. Scheduling Instructions: Comments: Please evaluate Adin Santos for admission to Home Health. [address] [facility] [address] (home) Date of : 1940 Inpatient DOCUMENTATION FOR VNA SERVICES (INCLUDING THOSE PATIENTS WITH MEDICARE COVERAGE REQUIRING HOME VNA SERVICES AND/OR HOSPICE SERVICES) PATIENT'S LOCATION: Adin Santos [address] [facility] [address] (home) Cell: Telephone Information: Material Cutter's Name: self In discussion with the attending physician, it is certified that this patient is under their care and that they, or a Nurse Practitioner, Clinical Nurse specialist or Physician Heart Coordinator who is working directly with them, [...] regarding health issues HOME HEALTH CARE AGENCY: [facility] [address] [address] START OF CARE: within 24-48 hours of [...] Mathews MD [address] / [facility] [address] . All A agencies which cover [...] MD / Dr. Masood Pierson [address] [place] [address] 11/09/23 1:55 PM arrival for 2:10 PM appointment Center Machine Set Up Operator: Izaiah Meyer MD [address] [place] [id number] , 11/24/2023 10:40 AM Your Inpatient Medical Team at [facility] Name(s) of your inpatient provider(s): Attending physician: Rosa Hugo MD Resident physicians: Emile Robles MD; Elmer Tamez MD If you have non-emergent questions, prior to your follow-up visit call: Tuesday-Tuesday between the hours of 8AM-5PM please call the Cardiology Clinic [phone] to speak with a nurse. All other hours please call the Hospital Bank Manager [phone] and ask to speak to the general intern on-call. Your Primary Care Provider Rosie Mathews MD [phone] For questions regarding this document or issues relating to this hospitalization on the Medical Service, please contact your inpatient physician through the [facility] Bank Manager . Issues afterhours and on weekends will be handled by the Center Machine Set Up Operator staff on-call. Associated attestation - Rosa [...] Mathews MD / Dr. Masood Pierson [address] [place] [address] 11/09/23 1:55 PM arrival for 2:10 PM appointment Center Machine Set Up Operator: Izaiah Meyer MD [address] [place] [address] , 11/24/2023 10:40 AM Your Inpatient Medical Team at [facility] Name(s) of your inpatient provider(s): Attending physician: Rosa Hugo MD Resident physicians: Emile Robles MD; Elmer Tamez MD If you have non-emergent questions, prior to your follow-up visit call: Tuesday-Tuesday between the hours of 8AM-5PM please call the Cardiology Clinic [phone] to speak with a nurse. All other hours please call the Hospital Bank Manager [phone] and ask to speak to the general intern on-call. Your Primary Care Provider Rosie Mathews MD [phone] documented in this encounter Medications at Time [...] for hypertension and hyperlipidemia who presented to [facility] as a transfer from [facility] as [...] for hypertension and hyperlipidemia who presented to [facility] as a transfer from [facility] as [...] Resident on Cardiology Service Cardiology S1 (Pager [phone]) Note written in conjunction with Claudio Perla [facility] Medical Student, MS3 Associated attestation [...] Nirmala Webb - 11/01/2023 11:25 AM EDT Social Insurance Adviser Encounter Note Patient Name: Adin Santos : [id number] MR#: [id number] Admit Date: 10/30/2023 5:11 PM Hospital Day 2 days Narrative: Self initiated visit to patient for Spiritual support in a regular unit rounds. Assessment: Patient is in the bathroom at the time of this visit. Not a good time for Rescue Instructor visit. Intervention and Outcome: An attempted visit [...] for hypertension and hyperlipidemia who presented to [facility] as a transfer from [facility] as [...] and low lung volumes. Findings similar to sports psychologist radiograph from CT 10/30/2023. Scheduled Medications: [AUG [...] for hypertension and hyperlipidemia who presented to [facility] as a transfer from [facility] as [...] Resident on Cardiology Service Cardiology S1 (Pager [phone]) Note written in conjunction with Claudio Perla [facility] Medical Student, MS3 Associated attestation [...] for hypertension and hyperlipidemia who presented to [facility] as a transfer from [facility] as a possible STEMI alert with acute onset chest pain. Active Problems: Active Hospital Problems Diagnosis Unstable angina Resolved Hospital Problems No resolved problems to display. 24 hr events: - Cath'd yesterday with lesion in the proximal RCA (initially thought it was OIL DISPATCHER but they were ableto wire, balloon and [...] and low lung volumes. Findings similar to sports psychologist radiograph from CT 10/30/2023. TTE (10/30): Interpretation [...] for hypertension and hyperlipidemia who presented to [facility] as a transfer from [facility] as [...] Resident on Cardiology Service Cardiology S1 (Pager [phone]) Note written in conjunction with Claudio Perla [facility] Medical Student, MS3 Associated attestation [...] PCP: Rosie Mathews MD PCP phone number: [phone] Date of Admission: 10/30/2023 ( Hospital Day 0 days ) Attending:Rosa Cornejo MD ID: Adin Santos is a 83 y.o. female PMH significant for hypertension and hyperlipidemia who presented to [facility] as a transfer from [facility] as a possible STEMI alert with acute onset chest pain. The patient reports that her symptoms initially began on Tuesday when she was walking to [facility] and experienced bilateral arm heaviness [...] on repeat, her TRU resolved. Cardiology at [facility] was consulted for transfer; the patient was loaded with aspirin 324 mg and ticagrelor 180 mg, started on a heparin drip, and given nitroglycerin with improvement in chest pain. Upon arrival to [facility], the patient was taken directly to the Vehicle Glass Technician. Two lesions were discovered: one in the prox RCA (felt to almost be a OIL DISPATCHER but they were able to wire, balloon, [...] and low lung volumes. Findings similar to sports psychologist radiograph from CT 10/30/2023. Assessment & Plan: Adin Santos is a 83 y.o. female PMH significant for hypertension and hyperlipidemia who presented to [facility] as a transfer from [facility] as [...] with HTN HLD transferred with chest from [facility]. BP 217/68, HR 71 EKG with [...] information for follow-up Home Health & Hospice, [place] [address] TANESHA BOYCE confirmed with [facility] that they will see the patient within 24-48 hours of discharge for start of care. Transportation: family or friend will provide Wheelchair van/Ambulance? No Functional status prior to admission: Assistive Equipment Home Environment: Others in the home: alone. Current Living Arrangements: home/apartment/condo. Accessibility Concerns:1st floor apartment in group home community; handicapped accessible. Current Functional Ability: Assistive Equipment DME used at home: cane - straight, grab bar - tub/shower, grab bar - toilet, raised toilet seat DME Needed at Discharge: N/A Patient is insured through: Primary Insurance: [employer] MANA[employer]ED MEDICARE Payor: [employer]NAGED MEDICARE / Plan: [employer]ED MEDICARE PPO / Product Type: *No [...] in the room. Electrolytes replaced, see MAR. slabber light sites remained C/D/I with baseline ecchymosis unchanged. Pt complained of back pain, lidocaine patch given. Right IV infiltrated during infusion, patient is marked with sharpie, IV removed. See flowsheet for I+O's and safety rounding. Patient is able to make needs known and call capps within reach. PLAN MOVING FORWARD: Monitor Tele, control BP, monitor medical laboratory specialist sites, D/C Planning INDIVIDUALIZED FALL PREVENTION [...] in an outpatient cardiac rehabilitation program at [facility] was discussed. Patient agrees to a [...] on RA. PT went to medical laboratory specialist today. Left fem site oozed throughout [...] Monitor Tele, control BP, monitor medical laboratory specialist sites, D/C Planning INDIVIDUALIZED FALL PREVENTION [...] Admitted From: Transfer from another hospital Location: [facility] Reason for Hospitalization: chest pain Covid Vaccination Status: 1st, 2nd & booster Past medical History: No past medical history on file. Hospitalizations Within the Past 30 Days: no previous admission in last 30 days Current Decision-Making Capacity: Self If AD's have not been completed the following surrogate would be surrogate decision maker per [place] surrogate decision making law. (Only good for 180 days) Any patient receiving care in [place] must abide by [place] law. The hierarchy for surrogate decision making [...] (i) The agent with financial power of civil rights attorney or a conservator appointed in accordance [...] Arrangements: home/apartment/condo. Accessibility Concerns:1st floor apartment in group home community; handicapped accessible. In the last [...] has the electric, gas, oil, or water clickTRUE threatened to shut off services in your [...] toilet seat Home Address confirmed as: [address] [facility] [address] Social & Family Supports: All names listed below confirmed with patient as current and correct Extended Emergency Contact Information Primary Emergency Contact: Iris Downing Address: [address] [place], [place] [id number] [place] [address] Mobile Relation: Child Secondary Emergency Contact: Karen More Address: [address] Mobile Relation: Child Current Care Provided by: self Provides Primary Care For: no one Caregiver if needed: child(emmanuel), adult Quality of Family relationships: involved, supportive Community Resources being provided currently: other (see comments) (receives [facility] services at home (1xweekly)) Behavioral [...] Specific Information: N/A Health/Prescription Coverage: Primary Insurance: [employer] MANAGED MEDICARE Payor: [employer] MANAGED MEDICARE / Plan: [employer] MANAGED MEDICARE PPO / Product Type: *No Product type* / Secondary Insurance: N/A Prescription Coverage: Yes Preferred Pharmacy: [facility] - [place], [place] - [address] [place] [address] [place] Status: Patient is a : No Primary Care Provider listed: Masood Pierson MD [phone] Patient/Caregiver Goals of Treatment: home when MR Potential Needs for Transition of Care: home health care Agency Referrals: Not Applicable I have met with the patient to: discuss discharge planning needs. provide the [facility], Office of Care Management letter from the Senior Android Developer pertaining to rehab referrals. provide a letter describing our affiliations within the [facility] and educate about their right to choose where referrals are sent. provide a list of Home Health Agencies / Durable Medical Equipment vendors which serve their preferred geographic area. provided patient with [facility] Star Quality Rating handout. They have requested referrals to: [facility] [address] [place] [address] Note routed to a Job Developer who will communicate referrals to facilities and [...] results. PO hydralazine added for BP control. slabber light sites remain C/D/I, ecchymosis unchanged th roughout shift. See flowsheet for I+O's and safety rounding. Patient is able to make needs known and call capps within reach. PLAN MOVING FORWARD: Monitor Tele, control CP and BP, NPO at MD for cath, monitor medical laboratory specialist sites, D/C Planning INDIVIDUALIZED FALL PREVENTION [...] 11:00 AM EDT Office Visit Cardiology at [address] [place] [address] Izaiah Meyer MD [facility] [place] [address] Scheduled Referrals Name Type Priority Associated Diagnoses [...] [facility] Lymph % 15.2 % [facility] Lymphocytes Abs 1.3 0.9 - 3.2 x10(3)/mc L [facility] Monocyte % 16.9 % [facility] Monocyte Abs 1.4(H) 0.3 - 0.9 x10(3)/ L [facility] Eos % 3.7 % [facility] [...] MD HEMATOLOGY ORDERABLE S [facility] [place] [address] * (ABNORMAL) Hemogram (11/03/2023 3:46 AM EDT) [...] MD HEMATOLOGY ORDERABLE S Performing Organization Address City/[facility]/ZIP Co de Phone Number [facility] [place] [address] * Phosphorus (11/03/2023 3:46 AM EDT) Pathologist [facility] Phosphorus 3.2 2.5 - 4.5 mg/dL [facility] Comment:result rechecked-KS Blood 11/03/2023 3:46 AM EDT 11/03/2023 4:11 AM EDT Narrative Resulting Agency Comment Spec In Lab Rosa Cornejo MD CHEMISTRY ORDERABLE S Performing Organization Address [facility] Co de Phone Number [facility] [place] [address] * Magnesium (11/03/2023 3:46 AM EDT) [facility] Magnesium 0.90 0.69 - 1.07 mmol/L [facility] Blood 11/03/2023 3:46 AM EDT 11/03/2023 4:11 AM EDT Narrative Resulting Agency Comment Spec In Lab Rosa Cornejo MD CHEMISTRY ORDERABLE S Performing Organization Address [facility] Co de Phone Number [facility] [place] [address] * (ABNORMAL) Basic Metabolic Panel (non-fasting) (11/03/2023 3:46 AM EDT) Pathologist [facility] Glucose 105 65 - 199 mg/dL [facility] [...] MD CHEMISTRY ORDERABLE S [facility] [place] [address] * EKG 12 Lead (11/02/2023 12:44 PM EDT) Ventricular rate 83 BPM MUSE SYSTEM Atrial Rate 83 BPM MUSE SYSTEM P-R Interval 216 ms MUSE SYSTEM QRS Duration 90 ms MUSE SYSTEM Q-T Interval 384 ms MUSE SYSTEM QTC Calculated (Bezet) 451 ms MUSE SYSTEM Calculated P Francis 92 degrees MUSE SYSTEM Calculated R Francis -51 degrees MUSE SYSTEM Calculated T Francis -33 degrees MUSE SYSTEM INTERPRETATION Sinus rhythm [...] RBC, Urine <1 0 - 4 /HPF [facility] Comment: Interpret results with caution, microscopic results are from suboptimal specimen volume WBC, Urine 16(H) 0 - 5 /HPF [facility] Comment: Interpret results with [...] Tamez MD URINE ORDERABLES [facility] [place] [address] * (ABNORMAL) Urinalysis with reflex Culture (11/02/2023 [...] HOSPITAL LABORATORY Leukocytes, Urine Dipstick Small(A) Negative [facility] Appearance, Urine Dipstick Cloudy(A) Clear [facility] Specific [place] Urine Automated >=1.030(A) 1.005 - 1.030 [facility] Color, Urine Dipstick Dark Yellow Yellow [facility] Reflex to Culture Yes [facility] Clean Catch Urine 11/02/2023 11:40 AM EDT 11/02/2023 12:04 PM EDT Narrative Resulting Agency Comment Spec In Lab Rosa Hugo MD URINE ORDERABLES Performing Organization Address City/State/[facility] Co de Phone Number [facility] [place] [address] * Respiratory Panel PCR (11/02/2023 10:15 AM EDT) Respiratory Panel Source DIET COUNSELOR Swab [facility] Respiratory Panel PCR Negative Negative [facility] Comment: Respiratory Panels are performed on the [employer], using multiplexed PCR nucleic acid detection. ??Negative [...] performed using the BioFire Respiratory Panel 2.1 ([employer]) as authorized by the FDA issued Emergency Use Authorization (EUA). This panel also tests for multiple other viral and bacterial pathogens. This assay is intended for In-vitro Diagnostic (IVD) use with nasopharyngeal swabs in viral transport media. The assay is performed based on the instructions for use and additional guidance provided by the FDA. Testing is performed in laboratories within the [facility], each of which is certified under the [...] fact sheets at the following FDA website: https://www.fda.gov/medical-devices/wdeitrytyom-rqthnog-9644-acqma-21-rslxhvqyv- use-a xfbjeeagxbsvq-slludcw-xdkznwr/uctsm-uvgwcnwthly-mair Human Metapneumovirus Not Detected Not Detected [facility] [...] GEN ERAL ORDERABLES [facility] [place] [address] * XR Chest One View (11/02/2023 2:51 AM EDT) WORKSTATION ID [id number] RAD Anatomical Region Laterality Modality Chest N/A Digital Radiogra phy Impressions 11/02/2023 4:56 AM EDT 1. ??No focal consolidation to suggest pneumonia. 2. ??Stable cardiomediastinal silhouette and the setting of known ascending aortic aneurysm. Preliminary report signed by: Pravni Puentes MD at 11/02/2023 4:05 AM ?? [...] who have questions please contact the health client care representative that requested your imaging first. [...] patients who have questions please contactthe health client care representative that requested your imaging first. Rosa Hugo MD IMG DX ORDERABLES * (ABNORMAL) Differential, Automated (11/02/2023 12:35 AM EDT) Neutrophil % 76.5 % [facility] Neutrophil Absolute 7.69(H) 1.70 - 6.10 x10(3)/mc L [facility] Lymph % 8.3 % [facility] Lymphocytes Abs 0.8(L) 0.9 - 3.2 x10(3)/mc L [facility] Monocyte % 12.9 % [facility] Monocyte Abs 1.3(H) 0.3 - 0.9 x10(3)/mc L [facility] Eos % 1.4 % [facility] [...] MD HEMATOLOGY ORDERABLE S [facility] [place] [address] * (ABNORMAL) Hemogram (11/02/2023 12:35 AM EDT) [...] MD HEMATOLOGY ORDERABLE S [facility] [place] [address] * (ABNORMAL) Phosphorus (11/02/2023 12:35 AM EDT) Phosphorus 1.6(L) 2.5 - 4.5 mg/dL [facility] Blood 11/02/2023 12:3 5 AM EDT 11/02/2023 12:43 AM EDT Narrative Resulting Agency Comment Spec In Lab Rosa Cornejo MD CHEMISTRY ORDERABLE S Performing Organization Address City/[facility]/ZIP Co de Phone Number [facility] [place] [address] * Magnesium (11/02/2023 12:35 AM EDT) Magnesium 0.87 0.69 - 1.07 mmol/L [facility] Blood 11/02/2023 12:3 5 AM EDT 11/02/2023 12:43 AM EDT Narrative Resulting Agency Comment Spec In Lab Rosa Cornejo MD CHEMISTRY ORDERABLE S Performing Organization Address City/[facility]/ZIP Co de Phone Number [facility] [place] [address] * Basic Metabolic Panel (non-fasting) (11/02/2023 12:35 [...] MD CHEMISTRY ORDERABLE S [facility] [place] [address] * Blood culture (11/02/2023 12:35 AM EDT) Blood Culture No growth at 5 days. [facility] Blood 11/02/2023 12:3 5 AM EDT 11/02/2023 1:55 AM EDT Comment:#2 site ukn Narrative Resulting Agency Comment Spec In Lab Rosa Hugo MD MICROBIOLOGY - BLO OD ORDERABLES Performing Organization Address City/[facility]/ZIP Co de Phone Number [facility] [place] [address] * Blood culture (11/02/2023 12:15 AM EDT) Blood Culture No growth at 5 days. [facility] Blood 11/02/2023 12:1 5 AM EDT 11/02/2023 1:54 AM EDT Comment:#1site unk Narrative Resulting Agency Comment Spec In Lab Rosa Hugo MD MICROBIOLOGY - BLO OD ORDERABLES Performing Organization Address [facility] Co de Phone Number [facility] [place] [address] * EKG 12 Lead (11/01/2023 10:10 PM EDT) Ventricular rate 139 BPM MUSE SYSTEM Atrial Rate 139 BPM MUSE SYSTEM P-R Interval 168 ms MUSE SYSTEM QRS Duration 84 ms MUSE SYSTEM Q-T Interval 286 ms MUSE SYSTEM QTC Calculated (Bezet) 435 ms MUSE SYSTEM Calculated R Francis -59 degrees MUSE SYSTEM Calculated T Francis -27 degrees MUSE SYSTEM INTERPRETATION Mid-RP tachycardia, [...] interpretation Confirmed by fellow MD Bowen Ashley ([id number]) on 11/04/2023 7:57:50 AM Confirmed by MD Carrillo Danette ([id number]) on 11/04/2023 4:32:03 PM MUSE SYSTEM 11/01/2023 [...] Mean Cell Hemoglobin 34.1(H) 27.1 - 32.0 [facility] Mean Cell Hemoglobin Concentration 34.1 31.7 - 35.0 g/dL [facility] Platelet 197 145 - 357 x10(3)/mc L [facility] RDW Standard Deviation 54.0(H) 37.0 - 46.0 [place] [facility] [...] MD HEMATOLOGY ORDERAB LES [facility] [place] [address] * POCT Glucose (11/01/2023 5:59 PM EDT) Glucose, POC 104 65 - 199 mg/dL [facility] Comment: Supplemental ranges: <140 mg/dL before meals <180 mg/dL all other times of the day Blood 11/01/2023 5:59 PM EDT 11/01/2023 5:59 PM EDT Rosa Hugo MD POINT OF CARE TEST ORDERABLES [facility] [place] [address] * POCT Glucose (11/01/2023 5:35 PM EDT) Glucose, POC 85 65 - 199 mg/dL [facility] Comment: Supplemental ranges: <140 mg/dL before meals <180 mg/dL all other times of the day Blood 11/01/2023 5:35 PM EDT 11/01/2023 5:35 PM EDT Rosa Hugo MD POINT OF CARE TEST ORDERABLES [facility] [place] [place] [address] * EKG 12 Lead (11/01/2023 3:22 PM EDT) Ventricular rate 59 BPM MUSE SYSTEM Atrial Rate 59 BPM MUSE SYSTEM P-R Interval 220 ms MUSE SYSTEM QRS Duration 94 ms MUSE SYSTEM Q-T Interval 428 ms MUSE SYSTEM QTC Calculated (Bezet) 423 ms MUSE SYSTEM Calculated P Francis 76 degrees MUSE SYSTEM Calculated R Francis -50 degrees MUSE SYSTEM Calculated T Francis -59 degrees MUSE SYSTEM INTERPRETATION Sinus bradycardia [...] Other Narrative 11/02/2023 4:57 PM EDT ?[facility] ? Cardiac Catheterization/Intervention Report ? Patient Name: Adin Santos. ? Procedure Date: 11/01/2023 ? A #: [id number] ? Primary Physician: Rosa Dewey I ? Case #: [id number] ? File Name: [id number] ? Catheterization Order Number: [id number] ? [facility] ? Final Report [place], [place] ? Patient Name: ? Adin M. Goguen ?ID#: ?[id number] ? : ?1940 ? Procedure Date: ? [...] as ASA Class III. The [facility] clinical ?frailty scale is 4: Vulnerable. ? [...] Urgent. The indication for ?the medical laboratory specialist visit is ACS greater than 24 [...] premounted ? 3.50 x 15 mm Andrea Cambridge (RADHA) was deployed with a maximum ? [...] ? A premounted 3.50 x 15 mm [place] (RADHA) was deployed ? with a maximum [...] prior to arrival in the medical laboratory specialist. ?Recommended anti-platelet/anti-thrombotic regimen: ?Continue aspirin 81 mg daily for indefinitely. ?Continue clopidogrel 75 mg daily for 12 months then stop. ?These recommendations are made at the time of the intervention. Patient ?and provider preferences or a changing clinical situation may require ?modification of this regimen. Consult [facility] Interventional Cardiology for ?questions. ?The 1 year [...] Note Rosa Dewey MD - 12/12/2023 [facility] Cardiac Catheterization/Intervention Report Patient Name: Adin Santos Procedure Date: 11/01/2023 A #: [id number] Primary Physician: Rosa Dewey I Case #: [id number] File Name: [id number] Catheterization Order Number: [id number] [facility] FinalReport [place], [place] Patient Name: Adin Santos ID#:[id number] :1940 Procedure Date: November 01, 2023 Case [...] was Urgent. The indicationfor the medical laboratory specialist visit is ACS greater than 24 [...] atmospheres. Apremounted 3.50 x 15 mm Andrea Cambridge (RADHA) was deployed with amaximum inflation pressure [...] The lesion was predilated with a 3.00mm [id number] MM balloon with a maximum inflation pressure of 14atmospheres. A premounted 3.50 x 15 mm [place] (RADHA) wasdeployed with a maximum inflation pressure [...] prior to arrival in the medical laboratory specialist. Recommended anti-platelet/anti-thrombotic regimen: Continue aspirin 81 mg daily for indefinitely. Continue clopidogrel 75 mg daily for 12 months then stop. These recommendations are made at the time of the intervention.Patient and provider preferences or a changing clinical situation mayrequire modification of this regimen. Consult [facility] Interventional Cardiologyfor questions. The 1 year bleeding [...] CARE TEST O RDERABLES [facility] [place] [place] [address] * (ABNORMAL) Differential, Automated (11/01/2023 3:09 AM EDT) Neutrophil % 63.9 % [facility] Neutrophil Absolute 5.54 1.70 - 6.10 x10(3)/mc L [facility] Lymph % 20.0 % [facility] Lymphocytes Abs 1.7 0.9 - 3.2 x10(3)/mc L [facility] Monocyte % 11.9 % [facility] Monocyte Abs 1.0(H) 0.3 - 0.9 x10(3)/ L [facility] Eos % 3.2 % [facility] Eosinophils Abs 0.3 0.0 - 0.4 x10(3)/ L [facility] Basophil % 0.5 % [facility] Baso Absolute 0.0 0.0 - 0.1 x10(3)/[facility] Immature Gran % 0.50 % [facility] Comment: Immature granulocytes(IG's)percentage and absolute count will include metamyelocytes, myelocytes, and promyelocytes. Blood smears from CBCs yielding IG's will be scanned manually for concordance. If this scan disagrees with the automated IG or if promyelocytes are noted, a manual differential will be performed. Immature Gran Absolute 0.04 0.00 - 0.04 x10(3)/[facility] Blood 11/01/2023 3:09 AM EDT 11/01/2023 3:29 AM EDT Narrative Resulting Agency Comment Spec In Lab Qamar Gallardo MD HEMATOLOGY ORDERABLE S [facility] [place] [address] * (ABNORMAL) Hemogram (11/01/2023 3:09 AM EDT) White Blood Cell 8.7 4.0 - 9.5 x10(3)/ L [facility] Red Blood Cell 3.72(L) 4.00 - 5.21 x10(6)/[facility] Hemoglobin 12.5 11.7 - [...] MD HEMATOLOGY ORDERABLE S [facility] [place] [address] * Phosphorus (11/01/2023 3:09 AM EDT) Phosphorus 2.5 2.5 - 4.5 mg/dL [facility] Blood 11/01/2023 3:09 AM EDT 11/01/2023 3:29 AM EDT Narrative Resulting Agency Comment Spec In Lab Rosa Cornejo MD CHEMISTRY ORDERABLE S [facility] [place] [address] * Magnesium (11/01/2023 3:09 AM EDT) Magnesium 0.82 0.69 - 1.07 mmol/L [facility] Blood 11/01/2023 3:09 AM EDT 11/01/2023 3:29 AM EDT Narrative Resulting Agency Comment Spec In Lab Rosa Cornejo MD CHEMISTRY ORDERABLE S [facility] [place] [address] * (ABNORMAL) Basic Metabolic Panel (non-fasting) (11/01/2023 [...] MD CHEMISTRY ORDERABLE S Performing Organization Address City/[facility]/ZIP Co de Phone Number [facility] [place] [address] * (ABNORMAL) Troponin (10/31/2023 2:46 PM EDT) [...] [facility] Test Catalog Reference: Fourth [place] Definition of Myocardial Infarction. Journal of the [place] [employer] 2018;72:5336-4579 Blood 10/31/2023 2:46 PM EDT 10/31/2023 2:55 PM EDT Narrative Resulting Agency Comment Spec In Lab Jean Laboy MD CHEMISTRY ORDERABLES Performing Organization Address City/[facility]/ZIP Co de Phone Number [facility] [place] [place] [address] * EKG 12 Lead (10/31/2023 1:07 PM EDT) Ventricular rate 54 BPM MUSE SYSTEM Atrial Rate 54 BPM MUSE SYSTEM P-R Interval 218 ms MUSE SYSTEM QRS Duration 92 ms MUSE SYSTEM Q-T Interval 540 ms MUSE SYSTEM QTC Calculated (Bezet) 512 ms MUSE SYSTEM Calculated P Francis 85 degrees MUSE SYSTEM Calculated R Francis -44 degrees MUSE SYSTEM Calculated T Francis -69 degrees MUSE SYSTEM INTERPRETATION Sinus bradycardia [...] [facility] Test Catalog Reference: Fourth [place] Definition of Myocardial Infarction. Journal of the [place] [employer] 2018;72:6579-3451 Blood 10/31/2023 11:3 7 AM EDT 10/31/2023 11:50 AM EDT Narrative Resulting Agency Comment Spec In Lab Rosa Cornejo MD CHEMISTRY ORDERABLE S Performing Organization Address City/State/[facility] Co de Phone Number [facility] [place] [address] * ECHO COMPLETE (10/31/2023 8:52 AM EDT) Anatomical Region Laterality Modality Cardiac Other 10/31/2023 7:57 AM EDT Narrative 10/31/2023 9:45 AM EDT [address] [place] [address] ? Echocardiogram Report Name: TREY SANTOSA Dorene ? Study Date: 10/31/2023 07:57 AMBP: 106/76 mmHg ? Patient Location: [address] : 1940 ? Height: 163 cm ? Account: [id number] Age: 83 yrs ? Weight: 76 kg Gender: Female ?BSA: 1.8 m2 Ordering Physician: ROSA DEWEY Referring Physician: OMAIRA GIRON Performed By: HAFSA Carmichael Reason For Study: STEMI Interpreting Fellow: Raymond Warren. Exam Location: [facility]. Interpretation Summary -The left ventricle is of [...] is no prior echocardiogram for comparison. Procedure Complete-28051. Satisfactory quality. There is sinus bradycardia. Left [...] Procedure Note Edgard Wang MD - 10/31/[address] [place] [address] Echocardiogram Report Name: ADIN SANTOS Study Date: 407:57 AMBP: 106/76 mmHg Patient Location: [id number] : 1940 Height: 163 cm Account: [id number] Age: 83 yrs Weight: 76 kg Gender: Female BSA: 1.8 m2 Ordering Physician: ROSA DEWEY Referring Physician: OMAIRA GIRON Performed By: HAFSA Carmichael Reason For Study: STEMI Interpreting Fellow: Raymond Warren. Exam Location: [facility]. Interpretation Summary -The left ventricle is of [...] is no prior echocardiogram for comparison. Procedure Complete-08884. Satisfactory quality. There is sinus bradycardia. Left [...] 8:51 AM EDT) [facility] Troponin-T, High Sensitivity 571(H) <=14 ng/L [facility] [...] [facility] Test Catalog Reference: Fourth [place] Definition of Myocardial Infarction. Journal of the [place] [employer] 2018;72:2063-0976 Blood 10/31/2023 8:51 AM EDT 10/31/2023 9:12 AM EDT Narrative Resulting Agency Comment Spec In Lab Rosa Cornejo MD CHEMISTRY ORDERABLE S Performing Organization Address City/State/[facility] Co de Phone Number [facility] [place] [place] [address] * CARDIAC CATHETERIZATION (10/31/2023 8:10 AM EDT) Anatomical Region Laterality Modality Other Narrative 11/07/2023 9:42 AM EDT ?[facility] ? Cardiac Catheterization/Intervention Report ? Patient Name: Adin Santos ? Procedure Date: 10/30/2023 ? A #: [id number] ? Primary Physician: Rosa Dewey I ? Case #: [id number] ? File Name: [id number] ? Catheterization Order Number: [id number] ? [facility] ? Final Report [place], [place] ? Patient Name: ? Adin M. Goguen ?ID#: ?[id number] ? : ?1940 ? Procedure Date: ? [...] as ASA Class III. The [facility] clinical frailty scale ?is 5: Mildly Frail. [...] Emergent. The indication for ?the medical laboratory specialist visit is ACS less than or [...] A premounted 4.00 x 38 mm Andrea Cambridge (RADHA) was deployed ? with a maximum [...] prior to arrival in the medical laboratory specialist. ?Recommended anti-platelet/anti-thrombotic regimen: ?Continue aspirin 81 mg daily for 12 months then stop. ?Continue clopidogrel 75 mg daily for indefinitely. ?These recommendations are made at the time of the intervention. Patient ?and provider preferences or a changing clinical situation may require ?modification of this regimen. Consult [facility] Interventional Cardiology for ?questions. ? Conclusions: ?* [...] Note Rosa Dewey MD - 12/05/2023 [facility] Cardiac Catheterization/Intervention Report Patient Name: Adin Santos Procedure Date: 10/30/2023 A #: [id number] Primary Physician: Rosa Dewey I Case #: [id number] File Name: [id number] Catheterization Order Number: [id number] [facility] FinalReport [place], [place] Patient Name: Adin Santos ID#:[id number] :1940 Procedure Date: October 30, 2023 Case [...] as ASA Class III. The [facility] clinical frailtyscale is 5: Mildly Frail. Diagnostic Tests: Electrocardiography: EKG was assessed by ECG. EKG was Abnormal. EKG showed STDeviation >= 0.5 mm, other abnormality and dynamic EKG changes. Medications Prior to Procedure: Aspirin, Angiotensin II Receptor Rodrick, Beta Rodrick andStatin. Indications for Diagnostic Cath: The priority of the diagnostic procedure was Emergent. Theindication for the medical laboratory specialist visit is ACS less than or [...] 16atmospheres. A premounted 4.00 x 38 mm [place] (RADHA) wasdeployed with a maximum inflation pressure [...] prior to arrival in the medical laboratory specialist. Recommended anti-platelet/anti-thrombotic regimen: Continue aspirin 81 mg daily for 12 months then stop. Continue clopidogrel 75 mg daily for indefinitely. These recommendations are made at the time of the intervention.Patient and provider preferences or a changing clinical situation mayrequire modification of this regimen. Consult [facility] Interventional Cardiologyfor questions. Conclusions: * Two vessel [...] Hill Troponin-T, High Sensitivity 457(H) <=14 ng/L [facility] [...] [facility] Test Catalog Reference: Fourth [place] Definition of Myocardial Infarction. Journal of the [place] [employer] 2018;72:1223-6534 Blood 10/31/2023 4:21 AM EDT 10/31/2023 4:30 AM EDT Narrative Resulting Agency Comment Spec In Lab Rosa Cornejo MD CHEMISTRY ORDERABLE S Performing Organization Address City/State/[facility] Co de Phone Number [facility] [place] [address] * (ABNORMAL) Differential, Automated (10/31/2023 3:05 AM EDT) Neutrophil % 71.7 % [facility] Neutrophil Absolute 8.21(H) 1.70 - 6.10 x10(3)/mc L [facility] Lymph % 16.9 % [facility] Lymphocytes Abs 1.9 0.9 - 3.2 x10(3)/mc L [facility] Monocyte % 9.4 % [facility] Monocyte Abs 1.1(H) 0.3 - 0.9 x10(3)/mc L [facility] Eos % 1.3 % [facility] [...] MD HEMATOLOGY ORDERABLE S [facility] [place] [address] * (ABNORMAL) Hemogram (10/31/2023 3:05 AM EDT) [...] HOSPITAL LABORATORY NRBC% auto 0.0 % [facility] NRBC Absolute 0.000 0.000 - 0.000 x10(3)/mc L [facility] Blood 10/31/2023 3:05 AM EDT 10/31/2023 3:13 AM EDT Narrative Resulting Agency Comment Spec In Lab Qamar Gallardo MD HEMATOLOGY ORDERABLE S Performing Organization Address [facility] Co de Phone Number [facility] [place] [address] * (ABNORMAL) APTT (10/31/2023 3:05 AM EDT) [...] MD HEMATOLOGY ORDERABL ES Performing Organization Address [facility] Co de Phone Number [facility] [place] [address] * (ABNORMAL) Prothrombin Time (10/31/2023 3:05 AM [...] MD HEMATOLOGY ORDERABL ES [facility] [place] [place] [address] * (ABNORMAL) Differential, Automated (10/31/2023 1:37 AM EDT) Neutrophil % 71.1 % [facility] Neutrophil Absolute 7.53(H) 1.70 - 6.10 x10(3)/mc L [facility] Lymph % 18.0 % [facility] Lymphocytes Abs 1.9 0.9 - 3.2 x10(3)/ L [facility] Monocyte % 8.7 % [facility] Monocyte Abs 0.9 0.3 - 0.9 x10(3)/mc L [facility] Eos % 1.6 % [facility] Eosinophils Abs 0.2 0.0 - 0.4 x10(3)/ L [facility] Basophil % 0.4 [...] MD HEMATOLOGY ORDERABLE S [facility] [place] [address] * (ABNORMAL) Hemogram (10/31/2023 1:37 AM EDT) [...] MD HEMATOLOGY ORDERABLE S [facility] [place] [address] * Phosphorus (10/31/2023 1:37 AM EDT) Phosphorus 3.2 2.5 - 4.5 mg/dL [facility] Blood 10/31/2023 1:37 AM EDT 10/31/2023 1:46 AM EDT Narrative Resulting Agency Comment Spec In Lab Rosa Cornejo MD CHEMISTRY ORDERABLE S Performing Organization Address City/[facility]/ZIP Co de Phone Number [facility] [place] [address] * Magnesium (10/31/2023 1:37 AM EDT) Magnesium 0.83 0.69 - 1.07 mmol/L [facility] Blood 10/31/2023 1:37 AM EDT 10/31/2023 1:46 AM EDT Narrative Resulting Agency Comment Spec In Lab Rosa Cornejo MD CHEMISTRY ORDERABLE S [facility] [place] [address] * Basic Metabolic Panel (non-fasting) (10/31/2023 1:37 [...] MD CHEMISTRY ORDERABLE S [facility] [place] [address] * (ABNORMAL) Troponin (10/31/2023 1:37 AM EDT) [...] [facility] Test Catalog Reference: Fourth [place] Definition of Myocardial Infarction. Journal of the [place] [employer] 2018;72:1313-7499 Blood 10/31/2023 1:37 AM EDT 10/31/2023 1:46 AM EDT Narrative Resulting Agency Comment Spec In Lab Rosa Cornejo MD CHEMISTRY ORDERABLE S Performing Organization Address City/[facility]/[place] [address] * EKG 12 Lead (10/31/2023 1:20 AM EDT) Ventricular rate 52 BPM MUSE SYSTEM Atrial Rate 52 BPM MUSE SYSTEM P-R Interval 224 ms MUSE SYSTEM QRS Duration 108 ms MUSE SYSTEM Q-T Interval 544 ms MUSE SYSTEM QTC Calculated (Bezet) 505 ms MUSE SYSTEM Calculated P Francis 90 degrees MUSE SYSTEM Calculated R Francis -57 degrees MUSE SYSTEM Calculated T Francis -63 degrees MUSE SYSTEM INTERPRETATION Sinus bradycardia with 1st degree A-V block Pulmonary disease pattern Left anterior fascicular block Moderate voltage criteria for LVH, may be normal variant ( R in aVL , [place] product ) T wave abnormality, consider inferior [...] (Bezet) 497 ms MUSE SYSTEM Calculated P Francis 75 degrees MUSE SYSTEM Calculated R Francis -53 degrees MUSE SYSTEM Calculated T Francis -57 degrees MUSE SYSTEM INTERPRETATION Sinus bradycardia [...] View (10/30/2023 10:10 PM EDT) WORKSTATION ID [id number] RAD Anatomical Region Laterality Modality Chest N/A Digital Radiogra phy Impressions 10/30/2023 10:32 PM EDT 1. ??Examination limited by low lung volumes. 2. ??Findings suggesting pulmonary vascular congestion with possible mild interstitial edema. 3. ??Known ascending aortic aneurysm, as seen on recent CT. 4. ??Nonspecific widening mediastinum. This can be secondary to magnification from portable technique and low lung volumes. Findings similar to sports psychologist radiograph from CT 10/30/2023. Thank you for letting us participate in the care of this patient. ??If you are a health care provider and have any questions regarding this report, please contact the number below. ??For patients who have questions please contact the health client care representative that requested your imaging first. ? Electronically signed by: Wilson Mccartney MD, [facility] ([phone]), at 10/30/2023 10:32 PM Narrative 10/30/2023 10:32 [...] and low lung volumes. Findings similar to sports psychologist radiograph from CT 10/30/2023. Thank you for letting us participate in the care of this patient. If youare a health care provider and have any questions regarding this report,please contact the number below. For patients who have questions please contactthe health client care representative that requested your imaging first. Electronically signed by: Wilson Mccartney MD, [facility]([phone]), at 10/30/2023 10:32 PM Rosa Cornejo MD IMG DX ORDERABLES * Green Tube HOLD (10/30/2023 10:05 PM EDT) [facility] Green Hold Sample in lab. [facility] Blood Venous Draw / Unknown 10/30/2023 10:05 PM EDT 10/30/2023 10:13 PM EDT Qamar Gallardo MD CHEMISTRY ORDERABLES [facility] [place] [address] * (ABNORMAL) Differential, Automated (10/30/2023 10:05 PM EDT) Neutrophil % 76.6 % [facility] Neutrophil Absolute 6.94(H) 1.70 - 6.10 x10(3)/mc L [facility] Lymph % 15.4 % [facility] Lymphocytes Abs 1.4 0.9 - 3.2 x10(3)/mc L [facility] Monocyte % 6.1 % [facility] Monocyte Abs 0.6 0.3 - 0.9 x10(3)/mc L [facility] Eos % 1.1 % [facility] [...] MD HEMATOLOGY ORDERABLE S Performing Organization Address City/State/[facility] Co de Phone Number [facility] [place] [address] * (ABNORMAL) Hemogram (10/30/2023 10:05 PM EDT) [...] MD HEMATOLOGY ORDERABLE S Performing Organization Address City/[facility]/ZIP Co de Phone Number [facility] [place] [address] * Hemoglobin A1c (10/30/2023 10:05 PM EDT) [...] MD CHEMISTRY ORDERABLE S [facility] [place] [address] * Lipid Panel (Reflex Direct LDL) (10/30/2023 10:05 PM EDT) [facility] Signature Cholesterol, Total 218 mg/dL [facility] Comment: Desirable: ? <200 mg/dL Borderline High: 200-239 mg/dL Higher: ?>px=163 mg/dL Triglyceride 46 mg/dL [facility] Comment: Normal: ?<150 mg/dL Borderline High: 150-199 mg/dL High: ?200-499 mg/dL Very High: ? >lz=617 mg/dL HDL Cholesterol 64 mg/dL [facility] Comment: Females: High Risk: <50 mg/dL Males: High Risk: <40 mg/dL LDL Cholesterol 145 mg/dL [facility] Comment: Desirable: ? <100 mg/dL Above Desirable: 100-129 mg/dL Borderline High: 130-159 mg/dL High: ?160-189 mg/dL Very High: ? >ju=191 mg/dL Lipid Interpretation See Note [facility] [...] individuals with atherosclerotic cardiovascular disease (ASCVD)or LDL >rc=409 mg/dL, use a high-intensity statin (40-80 mg [...] MD CHEMISTRY ORDERABLE S Performing Organization Address City/[facility] Co de Phone Number [facility] [place] [address] * TSH [place] (10/30/2023 10:05 PM EDT) Thyroid Stimulating Hormone 3.35 0.27 - 4.20 mcIU/mL [facility] Comment: Reference Interval (mcIU/mL): Females: ??First Trimester: 0.23-3.88 ??Second Trimester: 0.22-3.90 ??Third Trimester: 0.44-4.66 Blood 10/30/2023 10:0 5 PM EDT 10/30/2023 10:12 PM EDT Narrative Resulting Agency Comment Spec In Lab Rosa Cornejo MD CHEMISTRY ORDERABLE S Performing Organization Address City/[facility]/ZIP Co de Phone Number [facility] [place] [address] * pro-Brain Natriuretic Peptide (10/30/2023 10:05 PM EDT) NT-proBNP 375 <=449 pg/mL [facility] Blood 10/30/2023 10:0 5 PM EDT 10/30/2023 10:12 PM EDT Narrative Resulting Agency Comment Spec In Lab Rosa Cornejo MD CHEMISTRY ORDERABLE S [facility] [place] [address] * (ABNORMAL) Comprehensive metabolic panel (non-fasting) (10/30/2023 [...] MD CHEMISTRY ORDERABLE S Performing Organization Address City/[facility]/ZIP Co de Phone Number [facility] [place] [address] * Phosphorus (10/30/2023 10:05 PM EDT) Phosphorus 3.3 2.5 - 4.5 mg/dL [facility] Blood 10/30/2023 10:0 5 PM EDT 10/30/2023 10:12 PM EDT Narrative Resulting Agency Comment Spec In Lab Rosa Cornejo MD CHEMISTRY ORDERABLE S [facility] [place] [address] * Magnesium (10/30/2023 10:05 PM EDT) Magnesium 0.86 0.69 - 1.07 mmol/L [facility] Blood 10/30/2023 10:0 5 PM EDT 10/30/2023 10:12 PM EDT Narrative Resulting Agency Comment Spec In Lab Rosa Cornejo MD CHEMISTRY ORDERABLE S Performing Organization Address [facility]/ZIP Co de Phone Number [facility] [place] [address] * (ABNORMAL) Troponin (10/30/2023 10:05 PM EDT) [...] [facility] Test Catalog Reference: Fourth [place] Definition of Myocardial Infarction. Journal of the [place] [employer] 2018;72:7457-3127 Blood 10/30/2023 10:0 5 PM EDT 10/30/2023 10:12 PM EDT Narrative Resulting Agency Comment Spec In Lab Rosa Cornejo MD CHEMISTRY ORDERABLE S Performing Organization Address City/[facility]/ZIP Co de Phone Number [facility] [place] [address] * EKG 12 Lead (10/30/2023 8:21 PM EDT) Ventricular rate 49 BPM MUSE SYSTEM Atrial Rate 49 BPM MUSE SYSTEM P-R Interval 230 ms MUSE SYSTEM QRS Duration 96 ms MUSE SYSTEM Q-T Interval 526 ms MUSE SYSTEM QTC Calculated (Bezet) 475 ms MUSE SYSTEM Calculated P Francis 98 degrees MUSE SYSTEM Calculated R Francis -48 degrees MUSE SYSTEM Calculated T Francis -51 degrees MUSE SYSTEM INTERPRETATION Sinus bradycardia with 1st degree A-V block Incomplete right bundle branch block Left anterior fascicular block Moderate voltage criteria for LVH, may be normal variant ( R in aVL , [place] product ) T wave abnormality, consider inferior [...] this medication record., Routine 1333 ([facility] Hold - Provider: Admin Adt [...] documented as of this encounter Care Teams Supervisor Yard Relationship Specialty Start Date End Date Rosie Mathews MD [address] [place] [id number] PCP - General Family Medicine 11/25/17 11/23/23 documented as of this encounter
--- OUTSIDE RECORDS SUMMARY | 2024-04-24 21:49 | XMS_ITS | Encounter Summary ---
Author Organization [facility] Address [facility] [place] [address] Care Team Providers Care Residential Care Officer Name Role Phone Rosie Mathews MD Primary Care Provider Encounter Details Date Type Department Care Team (Late st Contact Info) Description 10/30/2023 5:00 PM EDT Ancillary Procedure Radiology Library at [facility] [place] [id number] Izaiah Meyer MD [facility] [place] [address] Social History Tobacco Use Types Packs/Day Years Used Date Smoking Tobacco: Former Smokeless Tobacco: Never Alcohol Use Standard Drinks/Week Comments Not Currently 0 (1 standard drink = 0.6 oz pur e alcohol) REPLACED BY [facility] Inpatient Questions Answer Date Recorded Does [...] 11:00 AM EDT Office Visit Cardiology at [address] [place] [id number] Izaiah Meyer MD [facility] [place] [address] documented as of this encounter Procedures Procedure Name Priority Date/Time Associated Diagnosis Comments FILM LIBRARY STORAGE ONLY CT CHEST Routine 10/30/2023 4:59 PM EDT documented in this encounter Results * Film Library- Storage Only CT Chest (10/30/2023 4:59 PM EDT) Narrative [facility] [place] - 10/30/2023 4:59 PM EDT This exam is auto-finalizing. It's purpose is for storage only. Izaiah Meyer MD IMG FILM LIBRARY ORD ERABLES Performing Organization Address City/State/[facility] Co de Phone Number [place], [place] documented in this encounter Visit Diagnoses Not on filedocumented in this encounter Care Teams Residential Care Officer Relationship Specialty Start Date End Date Rosie Mathews MD [address] [place] [address] PCP - General Family Medicine 11/25/17 11/23/23 documented as of this encounter
--- OUTSIDE RECORDS SUMMARY | 2024-04-24 21:50 | XMS_ITS | Encounter Summary ---
Author Organization [facility] Address [address] [place] [address] Care Team Providers Care Cord Cutter Name Role Phone Unavailable Primary Care Provider Unavailabl e Encounter Details Date Type Department Care Team (Late st Contact Info) Description 01/27/2021 Lab Requisition [facility] Pathology & Laboratory Medicine - [facility] [address] [place] [address] Outr Resulting Lab, Provider Social History Tobacco [...] Outr Resulting Lab MICROBIOLOGY - GENERAL ORDERABLES [facility] [address] [place] [address] * COVID-19 TESTING (01/26/2021 16:45 EDT) COVID-19 rt-PCR Result Negative Negative 01/28/2021 13:31 EDT [facility] Comment: This test [...] developed and its performance characteristics determined by [facility]. It has not been cleared [...] testing. This test is based on the [facility] COVID-19 Emergency Use Authorization (EUA) assay, with minor modification as defined by the FDA Performed on the Secooo 7 Pro RT-PCR System. Performing Lab [facility] Lab 01/28/2021 13:31 EDT [facility] Swab 01/26/2021 16:4 5 EDT 01/27/2021 15:46 EDT Provider Outr Resulting Lab MICROBIOLOGY - GENERAL ORDERABLES [facility] [address] [place] [address] documented in this encounter Visit Diagnoses Not on filedocumented in this encounter
--- OUTSIDE RECORDS SUMMARY | 2024-04-24 21:50 | XMS_ITS | Encounter Summary ---
Author Organization [facility] Address [facility] [place] [address] Care Team Providers Care Dye Reel Operator Name Role Phone Rosie Mathews MD Primary Care Provider [phone] Reason for Visit * Reason Comments Skin Lesion * Consultation (Routine) - Closed Specialty Diagnoses / Procedures Referred By John hunt Referred To Contact Dermatology Diagnoses facial skin lesion Procedures pt would like to be seen PRADEEP Rosie Mathews MD [address] [place] [address] [facility] Dermatology [address] [place] [address] Referral ID Status Reason Start Date Expiration Date V isits Requested Visits Authorized [id number] Closed Consult, Test & Treat Connection Center 10/25/2017 10/25/2018 1 1 Encounter Details Date Type Department Care Team (Late st Contact Info) Description 11/25/2017 4:30 PM EDT Office Visit Dermatology at [facility] [address] [place] [address] Call, Radu Go MD [facility] DR [address]ERLY[place] [address] Seborrheic keratosis; Fibrous papule of [...] Radu Tom MD Resident in Dermatology [facility] Patient seen in conjunction with staff full stack software engineer: Terri Hale MD Section of Dermatology [facility] * Terri Hale MD - 11/25/2017 [...] AM EDT Office Visit Cardiology at [address] [address] Izaiah Meyer MD [facility] [place] [address] documented as of this encounter Visit Diagnoses Diagnosis Seborrheic keratosis Other seborrheic keratosis Fibrous papule of nose Benign neoplasm of skin of other and unspecified parts of face Skin tags, multiple acquired documented in this encounter Care Teams Dye Reel Operator Relationship Specialty Start Date End Date Rosie Mathews MD [address] [place] [address] PCP - General Family Medicine 11/25/17 11/23/23 documented as of this encounter
--- OUTSIDE RECORDS SUMMARY | 2024-04-24 21:50 | XMS_ITS | Encounter Summary ---
Author Organization [facility] Address [facility] [place] [address] Care Team Providers Care Insulation Worker Interior Surface Name Role Phone Rosie Mathews MD Primary Care Provider [phone] Encounter Details Date Type Department Care Team (Late st Contact Info) Description 10/30/2023 External Results Transfer Center [facility] [place] [address] Social History Tobacco Use Types Packs/Day Years Used Date Smoking Tobacco: Former Smokeless Tobacco: Never Alcohol Use Standard Drinks/Week Comments Not Currently 0 (1 standard drink = 0.6 oz pur e alcohol) [facility] Utilities Answer Date Recorded In the past 12 months has e [employer], gas, oil, or water [employer] threatened to shut off services in your [...] AM EDT Office Visit Cardiology at [address] [address] Izaiah Meyer MD [facility] [place] [address] documented as of this encounter Procedures Procedure [...] on filedocumented in this encounter Care Teams Insulation Worker Interior Surface Relationship Specialty Start Date End Date Rosie Mathews MD [address] [place] [address] PCP - General Family Medicine 11/25/17 11/23/23 documented as of this encounter
--- OUTSIDE RECORDS SUMMARY | 2024-04-24 21:50 | XMS_ITS | Referral Summary ---
Author Organization [facility] Address [address] [place] [address] Care Team Providers Care Livestock Farmworker Name Role Phone Unavailable Primary Care Provider [...]
--- OUTSIDE RECORDS SUMMARY | 2024-04-24 21:50 | XMS_ITS | Encounter Summary ---
Author Organization [facility] Address [facility] [place] [address] Care Team Providers Care Instructor Weaving Name Role Phone Rosie Mathews MD Primary Care Provider [phone] Reason for Visit * Consultation (Routine) - Closed Specialty Diagnoses / Procedures Referred By Contbruce hunt Referred To Contact Audiology Diagnoses Hearing assessment and treatment options Karson John MD [address] [place] [address] [facility] [address] [place] [phone] Referral ID Status Reason Start Date Expiration Date V isits Requested Visits Authorized [id number] Closed Consult, Test & Treat Connection Center 11/22/2017 11/22/2018 1 1 Encounter Details Date Type Department Care Team (Latest Contact Info) Description 11/30/2017 3:15 PM EDT Office Visit Audiology at [address] [address] Georgette Onofre AUD [facility] [place] [address] Sensorineural hearing loss, bilateral; Bilateral [...] Goodrich Age: 77 y.o. Referring provider: Karson oJhn MD Date: 11/30/2017 Reason for referral: Evaluation [...] Ill in-the-ear hearingaids nine years ago in [place], [place]. She stated she continues to experience [...] tone audiogram. SNR loss is the increased [id number] ratio required by an individual to understand [...] not hesitate to contact this Section at [phone] if there are questions regarding this report or its recommendations. Romeo Becker [place] [id number] Attachment: audiogram CC: MD Karson Loo MD [place] [address] [facility] [address] [address] [place] [phone] documented in this encounter Plan of Treatment Upcoming Encounters Date Type Department Care Team (Late st Contact Info) Description 10/24/2024 11:00 AM EDT Office Visit Cardiology at [address] [place] [address] Izaiah Meyer MD [facility] [place] [address] documented as of this encounter Procedures Procedure [...] tinnitus documented in this encounter Care Teams Instructor Weaving Relationship Specialty Start Date End Date Rosie Mathews MD [address] [place] [address] PCP - General Family Medicine 11/25/17 11/23/23 documented as of this encounter
--- OUTSIDE RECORDS SUMMARY | 2024-04-24 21:50 | XMS_ITS | Encounter Summary ---
Author Organization [facility] Address [facility] [place] [address] Care Team Providers Care Ultrasonic Cleaner Name Role Phone Rosie Mathews MD Primary Care Provider [phone] Encounter Details Date Type Department Care Team (Late st Contact Info) Description 10/30/2023 [place] [address] Jose Lee MD [facility] [place] [address] Social History Tobacco Use Types Packs/Day Years Used Date Smoking Tobacco: Former Smokeless Tobacco: Never Alcohol Use Standard Drinks/Week Comments Not Currently 0 (1 standard drink = 0.6 oz pur e alcohol) [facility] Utilities Answer Date Recorded In the past 12 months has e [employer], gas, oil, or water [employer] threatened to shut off services in your [...] 11:00 AM EDT Office Visit Cardiology at [address] [address] Izaiah Meyer MD [facility] [place] [place] [address] documented as of this encounter Visit Diagnoses Not on filedocumented in this encounter Additional Health Concerns Infection Onset Date Last Indicated Resolved Time Rule Out Respiratory 11/02/2023 11/02/2023 024 12:22 PM EDT Rule Out COVID-19 11/02/2023 11/02/2023 11/02/2023 12:22 PM EDT documented as of this encounter Care Teams Ultrasonic Cleaner Relationship Specialty Start Date End Date Rosie Mathews MD [address] [place] [address] PCP - General Family Medicine 11/25/17 11/23/23 documented as of this encounter
--- OUTSIDE RECORDS SUMMARY | 2024-04-24 21:50 | XMS_ITS | Encounter Summary ---
Author Organization [facility] [place] [address] Care Team Providers Care Excellence Leader Name Role Phone Rosie Mathews MD Primary Care Provider [phone] Reason for Visit * Auth/Cert (Routine) Specialty Diagnoses / Procedures Referred By Contac t Referred To Contact Diagnoses Unstable angina Chest pain NSTEMI Procedures CARDIAC CATHETERIZATION Rosa Dewey MD [facility] [place] [address] [facility] Referral ID Status Reason Start Date Expiration Date Visits Re quested Visits Authorized [id number] 1 1 Encounter Details Date Type Department Care Team (Late st Contact Info) Description 10/30/2023 4:25 PM EDT - 10/30/2023 5:27 PM [place] [address] Rosa Dewey MD [facility] [address] [place] [place], [place] [id number] CARDIAC CATHETERIZATION Social History Tobacco Use Types [...] for hypertension and hyperlipidemia who presented to [facility] as a transfer from [facility] as a possible STEMI alert with acute onset chest pain. The patient reports that her symptoms initially began on Tuesday when she was walking to [facility] and experienced bilateral arm heaviness while walking with no other symptoms. Then, this afternoon shereports developing bilateral achy shoulder pain and nonradiating substernal left-sided chest pressure that was 7/10 in severity after [place]. The patient denies any associated fevers, chills, [...] on repeat, her JAMIE resolved. Cardiology at [facility] was consulted for transfer; the patient was loaded with aspirin 324 mg and ticagrelor 180 mg, started on a heparin drip, and given nitroglycerin with improvement in chest pain. Upon arrival to [facility], the patient was taken directly to the Mail Messenger. Two lesions were discovered: one in the prox RCA (felt to almost be a ONLINE PROGRAM COORDINATOR but they were able to [...] prior to arrival in the cardiac cath technician. Recommended anti-platelet/anti-thrombotic regimen: Continue aspirin 81 [...] and low lung volumes. 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 Pending Studies [...] 10:40 AM Izaiah Meyer MD Cardiology at [place] Arrive at: [facility] [address] [phone] Future Orders Complete By Expires Referral to Cardiac Rehab [[id number] Custom] As directed Process Instructions: If no progress note charted, please enter Clinical details in comments. Scheduling Instructions: Questions: My question or request is: STEMI. Cardiac rehab at [facility]. Referral to Home Health [[id number] Custom] As directed Process Instructions: If no progress note charted, please enter Clinical details in comments. Scheduling Instructions: Comments: Please evaluate Adin Santos for admission to Home Health. [address] [place] [address] [place] [phone] (home) Date of : 1940 Inpatient DOCUMENTATION FOR VNA SERVICES (INCLUDING THOSE PATIENTS WITH MEDICARE COVERAGE REQUIRING HOME VNA SERVICES AND/OR HOSPICE SERVICES) PATIENT'S LOCATION: Adin Santos [address] [facility] [id number] (home) Cell: Telephone Information: Buncher Hand's Name: self In discussion with the attending physician, it is certified that this patient is under their care and that they, or a Nurse Practitioner, Clinical Nurse specialist or Physician Production Team Member who is working directly with them, had [...] [facility] [address] [place] [id number] START OF CARE: within 24-48 hours of [...] Rosie Mathews MD [address] / [facility] [address] . All A agencies which cover the [...] / Dr. Masood Pierson [address] [place] [address] 11/09/23 1:55 PM arrival for 2:10 PM appointment Alteration Worker: Izaiah Meyer MD [address] [place] [address] , 11/24/2023 10:40 AM Your Inpatient Medical Team at [facility] Name(s) of your inpatient provider(s): Attending physician: Rosa Hugo MD Resident physicians: Emile Robles MD; Elmer Tamez MD If you have non-emergent questions, prior to your follow-up visit call: Tuesday-Tuesday between the hours of 8AM-5PM please call the Cardiology Clinic [phone] to speak with a nurse. All other hours please call the Hospital Alum Plant Operator [phone] and ask to speak to the outside machinist apprentice on-call. Your Primary Care Provider Rosie Mathews MD [phone] For questions regarding this document or issues relating to this hospitalization on the Medical Service, please contact your inpatient physician through the [facility] Alum Plant Operator . Issues afterhours and on weekends will be handled by the Alteration Worker staff on-call. Associated attestation - Rosa [...] / Dr. Masood Pierson [address] [place] [address] 11/09/23 1:55 PM arrival for 2:10 PM appointment Alteration Worker: Izaiah Meyer MD [address] [place] [address] , 11/24/2023 10:40 AM Your Inpatient Medical Team at [facility] Name(s) of your inpatient provider(s): Attending physician: Rosa Hugo MD Resident physicians: Emile Robles MD; Elmer Tamez MD If you have non-emergent questions, prior to your follow-up visit call: Tuesday-Tuesday between the hours of 8AM-5PM please call the Cardiology Clinic [phone] to speak with a nurse. All other hours please call the Hospital Alum Plant Operator [phone] and ask to speak to the outside machinist apprentice on-call. Your Primary Care Provider Rosie Mathews MD [phone] documented in this encounter Medications at Time [...] for hypertension and hyperlipidemia who presented to [facility] [...] for hypertension and hyperlipidemia who presented to [facility] [...] Resident on Cardiology Service Cardiology S1 (Pager [phone]) Note written in conjunction with Claudio Perla [facility], MS3 Associated attestation - Rosa [...] Nirmala Webb - 11/01/2023 11:25 AM EDT Principal Technical Writer Encounter Note Patient Name: Adin Santos : [id number] MR#: [id number] Admit Date: 10/30/2023 5:11 PM Hospital Day 2 days Narrative: Self initiated visit to patient for Spiritual support in a regular unit rounds. Assessment: Patient is in the bathroom at the time of this visit. Not a good time for Echocardiograph Tech visit. Intervention and Outcome: An attempted [...] for hypertension and hyperlipidemia who presented to [facility] [...] and low lung volumes. 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 Scheduled Medications: [...] for hypertension and hyperlipidemia who presented to [facility] [...] Resident on Cardiology Service Cardiology S1 (Pager [phone]) Note written in conjunction with Claudio Perla [facility], MS3 Associated attestation - Rosa Huog MD - 11/01/2023 2:24 PM EDT I [...] for hypertension and hyperlipidemia who presented to [facility] as a transfer from [facility] as a possible STEMI alert with acute onset chest pain. Active Problems: Active Hospital Problems Diagnosis Unstable angina Resolved Hospital Problems No resolved problems to display. 24 hr events: - Cath'd yesterday with lesion in the proximal RCA (initially thought it was ONLINE PROGRAM COORDINATOR but they were ableto wire, [...] and low lung volumes. 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 TTE (10/30): [...] for hypertension and hyperlipidemia who presented to [facility] a [facility] [...] Resident on Cardiology Service Cardiology S1 (Pager [phone]) Note written in conjunction with Claudio Perla [facility], MS3 Associated attestation - Rosa [...] PCP: Rosie Mathews MD PCP phone number: [phone] Date of Admission: 10/30/2023 ( Hospital Day 0 days ) Attending:Rosa Cornejo MD ID: Adin Santos is a 83 y.o. female PMH significant for hypertension and hyperlipidemia who presented to [facility] as a transfer from [facility] as a possible STEMI alert with acute onset chest pain. The patient reports that her symptoms initially began on Tuesday when she was walking to [facility] and experienced bilateral arm heaviness while walking with no other symptoms. Then, this afternoon shereports developing bilateral achy shoulder pain and nonradiating substernal left-sided chest pressure that was 7/10 in severity after [place] home [place]. The patient denies any associated fevers, chills, [...] on repeat, her JAMIE resolved. Cardiology at [facility] was consulted for transfer; the patient was loaded with aspirin 324 mg and ticagrelor 180 mg, started on a heparin drip, and given nitroglycerin with improvement in chest pain. Upon arrival to [facility], the patient was taken directly to the Mail Messenger. 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 Assessment & Plan: Adin Santos is a 83 y.o. female PMH significant for hypertension and hyperlipidemia who presented to [facility] [...] with HTN HLD transferred with chest from [facility]. BP 217/68, HR [address] [...] information for follow-up Home Health & Hospice, [place] [address] TANESHA BOYCE confirmed with Brittany CARVAJAL that [...] the room. Electrolytes replaced, see MAR. laborer starch factory sites remained C/D/I with baseline ecchymosis unchanged. Pt complained of back pain, lidocaine patch given. Right IV infiltrated during infusion, patient is marked with sharpie, IV removed. See flowsheet for I+O's and safety rounding. Patient is able to make needs known and call capps within reach. PLAN MOVING FORWARD: Monitor Tele, control BP, monitor cardiac cath technician sites, D/C Planning INDIVIDUALIZED FALL PREVENTION [...] in an outpatient cardiac rehabilitation program at [facility] was discussed. Patient agrees to a referral [...] on RA. PT went to cardiac cath technician today. Left fem site oozed throughout [...] Monitor Tele, control BP, monitor cardiac cath technician sites, D/C Planning INDIVIDUALIZED FALL PREVENTION [...] Admitted From: Transfer from another hospital Location: [facility] Reason for Hospitalization: chest pain Covid Vaccination [...] care in [place] must abide by [place] law. The hierarchy [...] has the electric, gas, oil, or water [employer] threatened to shut off services in [...] toilet seat Home Address confirmed as: [address] [facility] [address] Social & Family Supports: All names listed below confirmed with patient as current and correct Extended Emergency Contact Information Primary Emergency Contact: Iris Downing Address: [address] [place], [place] [address] [place] [address] Mobile Relation: Child Secondary Emergency Contact: Karen [...] Insurance: N/A Prescription Coverage: Yes Preferred Pharmacy: [facility] [place], [place] - [address] [place] [address] [place] [address] [place]umpass Status: Patient is a : No Primary Care Provider listed: Masood Pierson MD [phone] Patient/Caregiver Goals of Treatment: home when MR Potential Needs for Transition of Care: home health care Agency Referrals: Not Applicable I have met with the patient to: discuss discharge planning needs. provide the [facility], Office of Care Management letter from the Manager Furniture pertaining to rehab referrals. provide a letter describing our affiliations within the [facility] and educate about their right to choose where referrals are sent. provide a list of Home Health Agencies / Durable Medical Equipment vendors which serve their preferred geographic area. provided patient with CMS Star Quality Rating handout. They have requested referrals to: [facility] [address] [place] [address] Note routed to a Music Ministries Director who will communicate referrals to facilities and [...] PO hydralazine added for BP control. laborer starch factory sites remain C/D/I, ecchymosis unchanged th roughout shift. See flowsheet for I+O's and safety rounding. Patient is able to make needs known and call capps within reach. PLAN MOVING FORWARD: Monitor Tele, control CP and BP, NPO at MD for cath, monitor cardiac cath technician sites, D/C Planning INDIVIDUALIZED FALL PREVENTION [...] 11:00 AM EDT Office Visit Cardiology at [address] [address] Izaiah Meyer MD [facility] [place] [address] Scheduled Referrals Name Type Priority Associated Diagnoses [...] [facility] Lymph % 15.2 % [facility] Lymphocytes Abs 1.3 0.9 - 3.2 x10(3)/mc L [facility] Monocyte % 16.9 % [facility] Monocyte Abs 1.4(H) 0.3 - 0.9 x10(3)/mc L [facility] Eos % 3.7 % [facility] [...] ORDERABLE S [facility] [place] [address] * (ABNORMAL) Hemogram (11/03/2023 3:46 AM EDT) White Blood Cell 8.3 4.0 - 9.5 x10(3)/ L [facility] Red Blood Cell 3.77(L) 4.00 - 5.21 x10(6)/ L [facility] Hemoglobin 13.1 11.7 [...] [facility]/ZIP Co de Phone Number [facility] [place] [address] * Phosphorus (11/03/2023 3:46 AM EDT) Phosphorus 3.2 2.5 - 4.5 mg/dL [facility] Comment:result rechecked-KS Blood 11/03/2023 3:46 AM EDT 11/03/2023 4:11 AM EDT Narrative Resulting Agency Comment Spec In Lab Rosa Cornejo MD CHEMISTRY ORDERABLE S Performing Organization Address [facility]/ZIP Co de Phone Number [facility] [place] [address] * Magnesium (11/03/2023 3:46 AM EDT) Magnesium 0.90 0.69 - 1.07 mmol/L [facility] Blood 11/03/2023 3:46 AM EDT 11/03/2023 4:11 AM EDT Narrative Resulting Agency Comment Spec In Lab Rosa Cornejo MD CHEMISTRY ORDERABLE S Performing Organization Address City/[facility]/ZIP Co de Phone Number [facility] [place] [address] * (ABNORMAL) Basic Metabolic Panel (non-fasting) (11/03/2023 [...] ORDERABLE S [facility] [place] [address] * EKG 12 Lead (11/02/2023 12:44 PM EDT) Ventricular rate 83 BPM MUSE SYSTEM Atrial Rate 83 BPM MUSE SYSTEM P-R Interval 216 ms MUSE SYSTEM QRS Duration 90 ms MUSE SYSTEM Q-T Interval 384 ms MUSE SYSTEM QTC Calculated (Bezet) 451 ms MUSE SYSTEM Calculated P [place] 92 degrees MUSE SYSTEM Calculated R [place] -51 degrees MUSE SYSTEM Calculated T [place] -33 degrees MUSE SYSTEM INTERPRETATION Sinus rhythm with 1st degree A-V block with Premature atrial complexes Left axis deviation Moderate voltage criteria for LVH, may be normal variant ( R in aVL , [place] product ) Anterolatera l infarct (cited on [...] Hugo MD ECG ORDERABLES Performing Organization Address City/[facility]/ZIP Co de Phone Number MUSE SYSTEM * [...] URINE ORDERABLES [facility] [place] [address] * (ABNORMAL) Urinalysis with reflex Culture (11/02/2023 [...] CENTER LABORATORY Leukocytes, Urine Dipstick Small(A) Negative [facility] Appearance, Urine Dipstick Cloudy(A) Clear [facility] Specific [place] Urine Automated >=1.030(A) 1.005 - 1.030 [facility] Color, Urine Dipstick Dark Yellow Yellow [facility] Reflex to Culture Yes [facility] Clean Catch Urine 11/02/2023 11:40 AM EDT 11/02/2023 12:04 PM EDT Narrative Resulting Agency Comment Spec In Lab Rosa Hugo MD URINE ORDERABLES [facility] [place] [address] * Respiratory Panel PCR (11/02/2023 10:15 AM EDT) Respiratory Panel Source ANTHROPOLOGY AND ARCHEOLOGY INSTRUCTOR Swab [facility] Respiratory Panel PCR Negative Negative [facility] Comment: Respiratory Panels are performed on the [employer], using multiplexed PCR nucleic acid detection. ??Negative [...] performed using the [employer] Respiratory Panel 2.1 ([place]) as authorized by the FDA issued Emergency Use Authorization (EUA). This panel also tests for multiple other viral and bacterial pathogens. This assay is intended for In-vitro Diagnostic (IVD) use with nasopharyngeal swabs in viral transport media. The assay is performed based on the instructions for use and additional guidance provided by the FDA. Testing is performed in laboratories within the [facility], each of which is certified under the [...] fact sheets at the following FDA website: https://www.fda.gov/medical-devices/xauvpsqbgzh-oqfqfow-8019-xlrnr-71-pcqolyqdm- use-a vtftzggkcxsxn-axmtbxj-easrsoy/ktbwn-xwgnjhfecay-dlxf Human Metapneumovirus Not Detected Not Detected [facility] [...] ERAL ORDERABLES [facility] [place] [address] * XR Chest One View (11/02/2023 2:51 AM EDT) WORKSTATION ID [id number] DH RAD Anatomical Region Laterality Modality Chest [...] who have questions please contact the health primary care coordinator that requested your imaging first. ? [...] patients who have questions please contactthe health primary care coordinator that requested your imaging first. Rosa Hugo MD IMG DX ORDERABLES * (ABNORMAL) Differential, Automated (11/02/2023 12:35 AM EDT) Neutrophil % 76.5 % [facility] Neutrophil Absolute 7.69(H) 1.70 - 6.10 x10(3)/mc L [facility] Lymph % 8.3 % [facility] Lymphocytes Abs 0.8(L) 0.9 - 3.2 x10(3)/mc L [facility] Monocyte % 12.9 % [facility] Monocyte Abs 1.3(H) 0.3 - 0.9 x10(3)/mc L [facility] Eos % 1.4 % [facility] [...] Absolute 0.05(H) 0.00 - 0.04 x10(3)/mc L [facility] Blood 11/02/2023 12:3 5 AM EDT 11/02/2023 12:43 AM EDT Narrative Resulting Agency Comment Spec In Lab Qamar Gallardo MD HEMATOLOGY ORDERABLE S [facility] [place] [address] * (ABNORMAL) Hemogram (11/02/2023 12:35 AM EDT) [...] ORDERABLE S [facility] [place] [address] * (ABNORMAL) Phosphorus (11/02/2023 12:35 AM EDT) Phosphorus 1.6(L) 2.5 - 4.5 mg/dL [facility] Blood 11/02/2023 12:3 5 AM EDT 11/02/2023 12:43 AM EDT Narrative Resulting Agency Comment Spec In Lab Rosa Cornejo MD CHEMISTRY ORDERABLE S Performing Organization Address City/[facility]/ZIP Co de Phone Number [facility] [place] [address] * Magnesium (11/02/2023 12:35 AM EDT) Magnesium 0.87 0.69 - 1.07 mmol/L [facility] Blood 11/02/2023 12:3 5 AM EDT 11/02/2023 12:43 AM EDT Narrative Resulting Agency Comment Spec In Lab Rosa Cornejo MD CHEMISTRY ORDERABLE S Performing Organization Address City/[facility]/ZIP Co de Phone Number [facility] [place] [address] * Basic Metabolic Panel (non-fasting) (11/02/2023 12:35 [...] ORDERABLE S [facility] [place] [address] * Blood culture (11/02/2023 12:35 AM EDT) Blood Culture No growth at 5 days. [facility] Blood 11/02/2023 12:3 5 AM EDT 11/02/2023 1:55 AM EDT Comment:#2 site ukn Narrative Resulting Agency Comment Spec In Lab Rosa Hugo MD MICROBIOLOGY - BLO OD ORDERABLES Performing Organization Address [facility] Co de Phone Number [facility] [place] [address] * Blood culture (11/02/2023 12:15 AM EDT) Blood Culture No growth at 5 days. [facility] Blood 11/02/2023 12:1 5 AM EDT 11/02/2023 1:54 AM EDT Comment:#1site unk Narrative Resulting Agency Comment Spec In Lab Rosa Hugo MD MICROBIOLOGY - BLO OD ORDERABLES Performing Organization Address [facility] Co de Phone Number [facility] [place] [address] * EKG 12 Lead (11/01/2023 10:10 PM EDT) Ventricular rate 139 BPM MUSE SYSTEM Atrial Rate 139 BPM MUSE SYSTEM P-R Interval 168 ms MUSE SYSTEM QRS Duration 84 ms MUSE SYSTEM Q-T Interval 286 ms MUSE SYSTEM QTC Calculated (Bezet) 435 ms MUSE SYSTEM Calculated R [place] -59 degrees MUSE SYSTEM Calculated T [place] -27 degrees MUSE SYSTEM INTERPRETATION Mid-RP tachycardia, consider sinus tachycardia or SVT Left axis deviation Moderate voltage criteria for LVH, may be normal variant ( R in aVL , [place] product ) Inferior infarct (cited on or before 01-NOV-2023) Anterolateral infarct (cited on or before 01-NOV-2023) Abnormal ECG When compared with ECG of 01-NOV-2023 15:22, Vent. rate Although rate has increased Serial changes of Anterior infarct Present I personally reviewed the tracing and edited the fellows interpretation Confirmed by fellow MD Bowen Ashley ([id number]) on 11/04/2023 7:57:50 AM Confirmed by MD Carrillo Danette ([id number]) on 11/04/2023 4:32:03 PM MUSE SYSTEM 11/01/2023 10:1 0 PM EDT 11/04/2023 4:32 PM EDT Rosa Cornejo MD ECG ORDERABLES MUSE SYSTEM * (ABNORMAL) Hemogram (11/01/2023 10:06 PM EDT) White Blood Cell 10.4(H) 4.0 - 9.5 x10(3)/[facility] Red Blood Cell 4.11 4.00 - 5.21 x10(6)/[facility] Hemoglobin 14.0 11.7 - 15.5 [...] Platelet 197 145 - 357 x10(3)/[facility] RDW Standard Deviation 54.0(H) 37.0 - 46.0 fL [facility] RDW coefficient of variation 14.6(H) 11.5 - 14.1 % [facility] Mean Platelet Volume 11.2 7.6 - 12.9 fL [facility] NRBC% auto 0.0 % [facility] NRBC Absolute 0.000 0.000 - 0.000 x10(3)/[facility] Blood 11/01/2023 10:0 6 PM EDT 11/01/2023 10:22 PM EDT Narrative Resulting Agency Comment Spec In Lab Rsoa Hugo MD HEMATOLOGY ORDERAB LES Performing Organization Address City/[facility]/ZIP Co de Phone Number [facility] [place] [address] * POCT Glucose (11/01/2023 5:59 PM EDT) Glucose, POC 104 65 - 199 mg/dL [facility] Comment: Supplemental ranges: <140 mg/dL before meals <180 mg/dL all other times of the day Blood 11/01/2023 5:59 PM EDT 11/01/2023 5:59 PM EDT Rosa Hguo MD POINT OF CARE TEST ORDERABLES Performing Organization Address [facility] Co de Phone Number [facility] [place] [address] * POCT Glucose (11/01/2023 5:35 PM EDT) [facility] Signature Glucose, POC 85 65 - 199 mg/dL [facility] Comment: Supplemental ranges: <140 mg/dL before meals <180 mg/dL all other times of the day Blood 11/01/2023 5:35 PM EDT 11/01/2023 5:35 PM EDT Rosa Hugo MD POINT OF CARE TEST ORDERABLES Performing Organization Address City/[facility] Co de Phone Number [facility] [place] [address] * EKG 12 Lead (11/01/2023 3:22 PM EDT) Ventricular rate 59 BPM MUSE SYSTEM Atrial Rate 59 BPM MUSE SYSTEM P-R Interval 220 ms MUSE SYSTEM QRS Duration 94 ms MUSE SYSTEM Q-T Interval 428 ms MUSE SYSTEM QTC Calculated (Bezet) 423 ms MUSE SYSTEM Calculated P [place] 76 degrees MUSE SYSTEM Calculated R [place] -50 degrees MUSE SYSTEM Calculated T [place] -59 degrees MUSE SYSTEM INTERPRETATION Sinus bradycardia [...] ? Procedure Date: 11/01/2023 ? A #: [id number] ? Primary Physician: Rosa Dewey I ? Case #: [id number] ? File Name: [id number] ? Catheterization Order Number: [id number] ? [facility] ? Final Report [place], [place] ? Patient Name: ? Adin M. Goguen ?ID#: ?[id number] ? : ?1940 ? Procedure Date: ? [...] Urgent. The indication for ?the cardiac cath technician visit is ACS greater than 24 [...] premounted ? 3.50 x 15 mm [place] (RADHA) was deployed with a maximum ? [...] A premounted 3.50 x 15 mm [place] (RADHA) was deployed ? with a maximum [...] prior to arrival in the cardiac cath technician. ?Recommended anti-platelet/anti-thrombotic regimen: ?Continue aspirin 81 mg daily for indefinitely. ?Continue clopidogrel 75 mg daily for 12 months then stop. ?These recommendations are made at the time of the intervention. Patient ?and provider preferences or a changing clinical situation may require ?modification of this regimen. Consult [facility] Interventional Cardiology for ?questions. ?The 1 year [...] Note Rosa Dewey MD - 12/12/2023 [facility] Cardiac Catheterization/Intervention Report Patient Name: Adin Santos Procedure Date: 11/01/2023 A #: [id number] Primary Physician: Rosa Dewey I Case #: [id number] File Name: [id number] Catheterization Order Number: [id number] [facility] FinalReport [place], [place] Patient Name: Adin Santos ID#:[id number] :1940 Procedure Date: November 01, 2023 Case [...] designated as ASA Class III. [facility]: Vulnerable. Diagnostic Tests: Prior Coronary Angiography: LV ejection fraction within 6 months is 65%. Electrocardiography: EKG was assessed by ECG. EKG was Abnormal. EKG showed other abnormality. Medications Prior to Procedure: Aspirin, Angiotensin II Receptor Rodrick and Statin. Indications for Diagnostic Cath: The priority of the diagnostic procedure was Urgent. The indicationfor the cardiac cath technician visit is ACS greater than 24 [...] 14 atmospheres. Apremounted 3.50 x 15 mm [place] (RADHA) was deployed with amaximum inflation pressure [...] The lesion was predilated with a 3.00mm [id number] MM balloon with a maximum inflation pressure of 14atmospheres. A premounted 3.50 x 15 mm [place] (RADHA) wasdeployed with a maximum inflation pressure [...] prior to arrival in the cardiac cath technician. Recommended anti-platelet/anti-thrombotic regimen: Continue aspirin 81 mg daily for indefinitely. Continue clopidogrel 75 mg daily for 12 months then stop. These recommendations are made at the time of the intervention.Patient and provider preferences or a changing clinical situation mayrequire modification of this regimen. Consult [facility] Interventional Cardiologyfor questions. The 1 year bleeding [...] O RDERABLES [facility] [place] [address] * (ABNORMAL) Differential, Automated (11/01/2023 3:09 AM EDT) Pathologist [facility] Neutrophil % 63.9 % [facility] Neutrophil Absolute 5.54 1.70 - 6.10 x10(3)/mc L [facility] Lymph % 20.0 % [facility] Lymphocytes Abs 1.7 0.9 - 3.2 x10(3)/mc L [facility] Monocyte % 11.9 % [facility] Monocyte Abs 1.0(H) 0.3 - 0.9 x10(3)/mc L [facility] Eos % 3.2 % [facility] Eosinophils Abs 0.3 0.0 - 0.4 x10(3)/ L [facility] Basophil % 0.5 % [facility] Baso Absolute 0.0 0.0 - 0.1 x10(3)/[facility] LABORATORY Immature Gran % 0.50 % [facility] Co de Phone Number [facility] [place] [address] * (ABNORMAL) Hemogram (11/01/2023 3:09 AM EDT) [...] [facility]/ZIP Co de Phone Number [facility] [place] [address] * Phosphorus (11/01/2023 3:09 AM EDT) Phosphorus 2.5 2.5 - 4.5 mg/dL [facility] Blood 11/01/2023 3:09 AM EDT 11/01/2023 3:29 AM EDT Narrative Resulting Agency Comment Spec In Lab Rosa Cornejo MD CHEMISTRY ORDERABLE S Performing Organization Address City/[facility]/ZIP Co de Phone Number [facility] [place] [address] * Magnesium (11/01/2023 3:09 AM EDT) Magnesium 0.82 0.69 - 1.07 mmol/L [facility] Blood 11/01/2023 3:09 AM EDT 11/01/2023 3:29 AM EDT Narrative Resulting Agency Comment Spec In Lab Rosa Cornejo MD CHEMISTRY ORDERABLE S [facility] [place] [address] * (ABNORMAL) Basic Metabolic Panel (non-fasting) (11/01/2023 [...] ORDERABLE S [facility] [place] [address] * (ABNORMAL) Troponin (10/31/2023 2:46 PM EDT) [...] value can be found in the [facility] Test Catalog Troponin - [facility] Test Catalog Reference: [place] Definition of Myocardial Infarction. Journal of the [employer] 2018;72:0774-9249 Blood 10/31/2023 2:46 PM EDT 10/31/2023 2:55 PM EDT Narrative Resulting Agency Comment Spec In Lab Jean Laboy MD CHEMISTRY ORDERABLES Performing Organization Address City/[facility] Co de Phone Number [facility] [place] [address] * EKG 12 Lead (10/31/2023 1:07 PM EDT) Ventricular rate 54 BPM MUSE SYSTEM Atrial Rate 54 BPM MUSE SYSTEM P-R Interval 218 ms MUSE SYSTEM QRS Duration 92 ms MUSE SYSTEM Q-T Interval 540 ms MUSE SYSTEM QTC Calculated (Bezet) 512 ms MUSE SYSTEM Calculated P [place] 85 degrees MUSE SYSTEM Calculated R [place] -44 degrees MUSE SYSTEM Calculated T [place] -69 degrees MUSE SYSTEM INTERPRETATION Sinus bradycardia [...] MD ECG ORDERABLES Performing Organization Address [facility] Co de Phone Number MUSE SYSTEM * (ABNORMAL) Troponin (10/31/2023 11:37 AM EDT) Pathologist [facility] Troponin-T, High Sensitivity 580(H) <=14 ng/L [facility] [...] value can be found in the [facility] Test Catalog Troponin - [facility] Test Catalog Reference: [place] Definition of Myocardial Infarction. Journal of the [employer] 2018;72:5271-0158 Blood 10/31/2023 11:3 7 AM EDT 10/31/2023 11:50 AM EDT Narrative Resulting Agency Comment Spec In Lab Rosa Cornejo MD CHEMISTRY ORDERABLE S [facility] [place] [place] [address] * ECHO COMPLETE (10/31/2023 8:52 AM EDT) Anatomical Region Laterality Modality Cardiac Other 10/31/2023 7:57 AM EDT Narrative 10/31/2023 9:45 AM EDT [address] [place] [address] ? Echocardiogram Report Name: ADIN SANTOS ? Study Date: 10/31/2023 07:57 AMBP: 106/76 mmHg ? Patient Location: [facility] 0481 A : 1940 ? Height: 163 cm ? Account: [id number] Age: 83 yrs ? Weight: 76 kg Gender: Female ?BSA: 1.8 m2 Ordering Physician: ROSA DEWEY Referring Physician: OMAIRA GIRON Performed By: HAFSA Carmichael Reason For Study: STEMI Interpreting Fellow: Raymond Warren. Exam Location: [facility]. Interpretation Summary -The left ventricle [...] is no prior echocardiogram for comparison. Procedure Complete-23754. Satisfactory quality. There is sinus bradycardia. Left [...] Note Edgard Wang MD - 10/31/2023 [address] [place] [address] Echocardiogram Report Name: ADIN SANTOS Study Date: 407:57 AMBP: 106/76 mmHg Patient Location: [address] : 1940 Height: 163 cm Account: [id number] Age: 83 yrs Weight: 76 kg Gender: Female BSA: 1.8 m2 Ordering Physician: ROSA DEWEY Referring Physician: OMAIRA GIRON Performed By: HAFSA Carmichael Reason For Study: STEMI Interpreting Fellow: Raymond Warren. Exam Location: [facility]. Interpretation Summary -The left ventricle [...] is no prior echocardiogram for comparison. Procedure Complete-28940. Satisfactory quality. There is sinus bradycardia. Left [...] value can be found in the [facility] Test Catalog Troponin - [facility] Test Catalog Reference: [place] Definition of Myocardial Infarction. Journal of the [employer] 2018;72:5829-6177 Blood 10/31/2023 8:51 AM EDT 10/31/2023 9:12 AM EDT Narrative Resulting Agency Comment Spec In Lab Rosa Cornejo MD CHEMISTRY ORDERABLE S Performing Organization Address City/State/[facility] Co de Phone Number [facility] [place] [address] * CARDIAC CATHETERIZATION (10/31/2023 8:10 AM EDT) Anatomical Region Laterality Modality Other Narrative 11/07/2023 9:42 AM EDT ?[facility] ? Cardiac Catheterization/Intervention Report ? Patient Name: Adin Santos M. ? Procedure Date: 10/30/2023 ? A #: [id number] ? Primary Physician: Rosa Dewey I ? Case #: [id number] ? File Name: [id number] ? Catheterization Order Number: [id number] ? [facility] ? Final Report [place], [place] ? Patient Name: ? Adin M. Goguen ?ID#: ?[id number] ? : ?1940 ? Procedure Date: ? October 30, 2023 ? Case #: ? [id number] ? Room: ? 5 ? Case Physician: [...] Emergent. The indication for ?the cardiac cath technician visit is ACS less than or [...] ? A premounted 4.00 x 38 mm [place] (RADHA) was deployed ? with a maximum [...] prior to arrival in the cardiac cath technician. ?Recommended anti-platelet/anti-thrombotic regimen: ?Continue aspirin 81 mg daily for 12 months then stop. ?Continue clopidogrel 75 mg daily for indefinitely. ?These recommendations are made at the time of the intervention. Patient ?and provider preferences or a changing clinical situation may require ?modification of this regimen. Consult [facility] Interventional Cardiology for ?questions. ? Conclusions: ?* [...] Adin Santos Procedure Date: 10/30/2023 A #: [id number] Primary Physician: Rosa Dewey I Case #: [id number] File Name: [id number] Catheterization Order Number: [id number] [facility] FinalReport [place], [place] Patient Name: Adin Santos ID#:[id number] :1940 Procedure Date: October 30, 2023 Case [...] was designated as ASA Class III. The [facility] clinical frailtyscale is 5: Mildly Frail. Diagnostic Tests: Electrocardiography: EKG was assessed by ECG. EKG was Abnormal. EKG showed STDeviation >= 0.5 mm, other abnormality and dynamic EKG changes. Medications Prior to Procedure: Aspirin, Angiotensin II Receptor Rodrick, Beta Rodrick andStatin. Indications for Diagnostic Cath: The priority of the diagnostic procedure was Emergent. Theindication for the cardiac cath technician visit is ACS less than or [...] 16atmospheres. A premounted 4.00 x 38 mm [place] (RADHA) wasdeployed with a maximum inflation pressure [...] prior to arrival in the cardiac cath technician. Recommended anti-platelet/anti-thrombotic regimen: Continue aspirin 81 mg daily for 12 months then stop. Continue clopidogrel 75 mg daily for indefinitely. These recommendations are made at the time of the intervention.Patient and provider preferences or a changing clinical situation mayrequire modification of this regimen. Consult [facility] Interventional Cardiologyfor questions. Conclusions: * Two vessel [...] * (ABNORMAL) Troponin (10/31/2023 4:21 AM EDT) [facility] Troponin-T, High Sensitivity 457(H) <=14 ng/L [facility] [...] value can be found in the [facility] Test Catalog Troponin - [facility] Test Catalog Reference: [place] Definition of Myocardial Infarction. Journal of the [employer] 2018;72:5017-1884 Blood 10/31/2023 4:21 AM EDT 10/31/2023 4:30 AM EDT Narrative Resulting Agency Comment Spec In Lab Rosa Cornejo MD CHEMISTRY ORDERABLE S Performing Organization Address City/State/[facility] Co de Phone Number [facility] [place] [address] * (ABNORMAL) Differential, Automated (10/31/2023 3:05 AM EDT) Neutrophil % 71.7 % [facility] Neutrophil Absolute 8.21(H) 1.70 - 6.10 x10(3)/mc L [facility] Lymph % 16.9 % [facility] Lymphocytes Abs 1.9 0.9 - 3.2 x10(3)/mc L [facility] Monocyte % 9.4 % [facility] Monocyte Abs 1.1(H) 0.3 - 0.9 x10(3)/mc L [facility] Eos % 1.3 % [facility] Co de Phone Number [facility] [place] [address] * (ABNORMAL) Hemogram (10/31/2023 3:05 AM EDT) White Blood Cell 11.5(H) 4.0 - 9.5 x10(3)/ L [facility] Red Blood Cell 3.75(L) 4.00 - 5.21 x10(6)/mc L [facility] [...] HEMATOLOGY ORDERABLE S Performing Organization Address [facility] de Phone Number [facility] [place] [address] * (ABNORMAL) APTT (10/31/2023 3:05 AM EDT) [...] HEMATOLOGY ORDERABL ES Performing Organization Address [facility] Co de Phone Number [facility] [place] [address] * (ABNORMAL) Prothrombin Time (10/31/2023 3:05 AM [...] Lab Rosa Cornejo MD HEMATOLOGY ORDERABL ES [facility] [place] [address] * (ABNORMAL) Differential, Automated (10/31/2023 1:37 AM EDT) Neutrophil % 71.1 % [facility] Neutrophil Absolute 7.53(H) 1.70 - 6.10 x10(3)/mc L [facility] Lymph % 18.0 % [facility] Lymphocytes Abs 1.9 0.9 - 3.2 x10(3)/mc L [facility] Monocyte % 8.7 % [facility] Monocyte Abs 0.9 0.3 - 0.9 x10(3)/mc L [facility] Eos % 1.6 % [facility] [...] ORDERABLE S [facility] [place] [address] * (ABNORMAL) Hemogram (10/31/2023 1:37 AM EDT) [...] ORDERABLE S [facility] [place] [address] * Phosphorus (10/31/2023 1:37 AM EDT) [facility] Phosphorus 3.2 2.5 - 4.5 mg/dL [facility] Blood 10/31/2023 1:37 AM EDT 10/31/2023 1:46 AM EDT Narrative Resulting Agency Comment Spec In Lab Rosa Cornejo MD CHEMISTRY ORDERABLE S Performing Organization Address City/[facility]/ZIP Co de Phone Number [facility] [place] [address] * Magnesium (10/31/2023 1:37 AM EDT) [facility] Magnesium 0.83 0.69 - 1.07 mmol/L [facility] Blood 10/31/2023 1:37 AM EDT 10/31/2023 1:46 AM EDT Narrative Resulting Agency Comment Spec In Lab Rosa Cornejo MD CHEMISTRY ORDERABLE S Performing Organization Address City/[facility]/ZIP Co de Phone Number [facility] [place] [address] * Basic Metabolic Panel (non-fasting) (10/31/2023 1:37 AM EDT) [facility] Glucose 114 65 - 199 mg/dL [facility]ENTRAL [...] ORDERABLE S [facility] [place] [address] * (ABNORMAL) Troponin (10/31/2023 1:37 AM EDT) [...] value can be found in the [facility] Test Catalog Troponin - [facility] Test Catalog Reference: [place] Definition of Myocardial Infarction. Journal of the [employer] 2018;72:4029-7142 Blood 10/31/2023 1:37 AM EDT 10/31/2023 1:46 AM EDT Narrative Resulting Agency Comment Spec In Lab Rosa Cornejo MD CHEMISTRY ORDERABLE S Performing Organization Address City/State/[facility] [place] [address] * EKG 12 Lead (10/31/2023 1:20 AM EDT) Ventricular rate 52 BPM MUSE SYSTEM Atrial Rate 52 BPM MUSE SYSTEM P-R Interval 224 ms MUSE SYSTEM QRS Duration 108 ms MUSE SYSTEM Q-T Interval 544 ms MUSE SYSTEM QTC Calculated (Bezet) 505 ms MUSE SYSTEM Calculated P [place] 90 degrees MUSE SYSTEM Calculated R [place] -57 degrees MUSE SYSTEM Calculated T [place] -63 degrees MUSE SYSTEM INTERPRETATION Sinus bradycardia [...] MD ECG ORDERABLES Performing Organization Address [facility] Co de Phone Number MUSE SYSTEM * EKG 12 Lead (10/30/2023 10:40 PM EDT) Ventricular rate 55 BPM MUSE SYSTEM Atrial Rate 55 BPM MUSE SYSTEM P-R Interval 232 ms MUSE SYSTEM QRS Duration 102 ms MUSE SYSTEM Q-T Interval 520 ms MUSE SYSTEM QTC Calculated (Bezet) 497 ms MUSE SYSTEM Calculated P [place] 75 degrees MUSE SYSTEM Calculated R [place] -53 degrees MUSE SYSTEM Calculated T [place] -57 degrees MUSE SYSTEM INTERPRETATION Sinus bradycardia with 1st degree A-V block Left anterior fascicular block Moderate voltage criteria for LVH, may be normal variant ( R in aVL , [place] product ) T wave abnormality, consider inferior [...] MD ECG ORDERABLES Performing Organization Address [facility] Phone Number MUSE SYSTEM * XR Chest One View (10/30/2023 10:10 PM EDT) WORKSTATION ID [id number] RAD Anatomical Region Laterality Modality Chest N/A Digital Radiogra phy Impressions 10/30/2023 10:32 PM EDT 1. ??Examination limited by low lung volumes. 2. ??Findings suggesting pulmonary vascular congestion with possible mild interstitial edema. 3. ??Known ascending aortic aneurysm, as seen on recent CT. 4. ??Nonspecific widening mediastinum. This can be secondary to magnification from portable technique and low lung volumes. 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 Thank you for letting us participate in the care of this patient. ??If you are a health care provider and have any questions regarding this report, please contact the number below. ??For patients who have questions please contact the health primary care coordinator that requested your imaging first. ? Electronically signed by: Wilson Mccartney MD, [facility] ([phone]), at 10/30/2023 10:32 PM Narrative 10/30/2023 10:32 [...] and low lung volumes. 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 Thank you for letting us participate in the care of this patient. If youare a health care provider and have any questions regarding this report,please contact the number below. For patients who have questions please contactthe health primary care coordinator that requested your imaging first. Rosa Cornejo MD IMG DX ORDERABLES * Green Tube HOLD (10/30/2023 10:05 PM EDT) [facility] Green Hold Sample in lab. [facility] Blood Venous Draw / Unknown 10/30/2023 10:05 PM EDT 10/30/2023 10:13 PM EDT Qamar Gallardo MD CHEMISTRY ORDERABLES [facility] [place] [address] * (ABNORMAL) Differential, Automated (10/30/2023 10:05 PM EDT) [facility] Neutrophil % 76.6 % [facility] Neutrophil Absolute 6.94(H) 1.70 - 6.10 x10(3)/mc L [facility] Lymph % 15.4 % [facility] Lymphocytes Abs 1.4 0.9 - 3.2 x10(3)/mc L [facility] Monocyte % 6.1 % [facility] Monocyte Abs 0.6 0.3 - 0.9 x10(3)/mc L [facility] Eos % 1.1 % [facility] [...] Immature Gran Absolute 0.02 0.00 - 0.04 x10(3)/[facility] LABORATORY Blood 10/30/2023 10:0 5 PM EDT 10/30/2023 10:12 PM EDT Narrative Resulting Agency Comment Spec In Lab Qamar Gallardo MD HEMATOLOGY ORDERABLE S [facility] [place] [address] * (ABNORMAL) Hemogram (10/30/2023 10:05 PM EDT) [...] HEMATOLOGY ORDERABLE S Performing Organization Address [facility] Co de Phone Number [facility] [place] [address] * Hemoglobin A1c (10/30/2023 10:05 PM EDT) [...] Mellitus, Diabetes Care 2013; 36: Suppl. 1, S64-71 Estimated Average Glucose See note mg/dL [facility] Comment: Estimated Average Glucose not appropriate for patients over 70 years of age. Blood 10/30/2023 10:0 5 PM EDT 10/30/2023 10:12 PM EDT Narrative Resulting Agency Comment Spec In Lab Rosa Cornejo MD CHEMISTRY ORDERABLE S Performing Organization Address City/[facility]/ZIP Co de Phone Number [facility] [place] [address] * Lipid Panel (Reflex Direct LDL) (10/30/2023 10:05 PM EDT) Cholesterol, Total 218 mg/dL [facility] Comment: Desirable: ? <200 mg/dL Borderline High: 200-239 mg/dL Higher: ?>li=265 mg/dL Triglyceride 46 mg/dL [facility] Comment: Normal: ?<150 mg/dL Borderline High: 150-199 mg/dL High: ?200-499 mg/dL Very High: ? >yc=755 mg/dL HDL Cholesterol 64 mg/dL [facility] Comment: Females: High Risk: <50 mg/dL Males: High Risk: <40 mg/dL LDL Cholesterol 145 mg/dL [facility] Comment: Desirable: ? <100 mg/dL Above Desirable: 100-129 mg/dL Borderline High: 130-159 mg/dL High: ?160-189 mg/dL Very High: ? >ze=317 mg/dL Lipid Interpretation See Note [facility] [...] ACC/AHA Guidelines (most recently Feliciano et al. [facility] 03/23/22): For individuals with atherosclerotic cardiovascular disease (ASCVD)or LDL >sx=203 mg/dL, use a high-intensity statin (40-80 mg [...] ORDERABLE S [facility] [place] [address] * TSH [place] (10/30/2023 10:05 PM EDT) Thyroid Stimulating Hormone 3.35 0.27 - 4.20 mcIU/mL [facility] Comment: Reference Interval (mcIU/mL): Females: ??First Trimester: 0.23-3.88 ??Second Trimester: 0.22-3.90 ??Third Trimester: 0.44-4.66 Blood 10/30/2023 10:0 5 PM EDT 10/30/2023 10:12 PM EDT Narrative Resulting Agency Comment Spec In Lab Rosa Cornejo MD CHEMISTRY ORDERABLE S [facility] [place] [address] * pro-Brain Natriuretic Peptide (10/30/2023 10:05 PM EDT) NT-proBNP 375 <=449 pg/mL [facility] Blood 10/30/2023 10:0 5 PM EDT 10/30/2023 10:12 PM EDT Narrative Resulting Agency Comment Spec In Lab Rosa Cornejo MD CHEMISTRY ORDERABLE S Performing Organization Address [facility]/ZIP Co de Phone Number [facility] [place] [address] * (ABNORMAL) Comprehensive metabolic panel (non-fasting) (10/30/2023 10:05 PM EDT) Pathologist [facility] Glucose 121 65 - 199 mg/dL [facility] [...] CHEMISTRY ORDERABLE S Performing Organization Address [facility]/ZIP Co de Phone Number [facility] [place] [address] * Phosphorus (10/30/2023 10:05 PM EDT) Phosphorus 3.3 2.5 - 4.5 mg/dL [facility] Blood 10/30/2023 10:0 5 PM EDT 10/30/2023 10:12 PM EDT Narrative Resulting Agency Comment Spec In Lab Rosa Cornejo MD CHEMISTRY ORDERABLE S Performing Organization Address City/[facility]/ZIP Co de Phone Number [facility] [place] [address] * Magnesium (10/30/2023 10:05 PM EDT) Magnesium 0.86 0.69 - 1.07 mmol/L [facility] Blood 10/30/2023 10:0 5 PM EDT 10/30/2023 10:12 PM EDT Narrative Resulting Agency Comment Spec In Lab Rosa Cornejo MD CHEMISTRY ORDERABLE S [facility] [place] [address] * (ABNORMAL) Troponin (10/30/2023 10:05 PM EDT) [...] value can be found in the [facility] Test Catalog Troponin - [facility] Test Catalog Reference: Fourth [place] Definition of Myocardial Infarction. Journal of the [place] [employer] 2018;72:5006-6114 Blood 10/30/2023 10:0 5 PM EDT 10/30/2023 10:12 PM EDT Narrative Resulting Agency Comment Spec In Lab Rosa Cornejo MD CHEMISTRY ORDERABLE S [facility] [place] [address] * EKG 12 Lead (10/30/2023 8:21 PM EDT) Ventricular rate 49 BPM MUSE SYSTEM Atrial Rate 49 BPM MUSE SYSTEM P-R Interval 230 ms MUSE SYSTEM QRS Duration 96 ms MUSE SYSTEM Q-T Interval 526 ms MUSE SYSTEM QTC Calculated (Bezet) 475 ms MUSE SYSTEM Calculated P [place] 98 degrees MUSE SYSTEM Calculated R [place] -48 degrees MUSE SYSTEM Calculated T [place] -51 degrees MUSE SYSTEM INTERPRETATION Sinus bradycardia [...] Provider: Mary Sweeney RN)2013 (Given - Provider: Daniac Shipley RN) 0607 (Given - Provider: Danica [...] (Recovery-Hospital Unit) 1530 (Continued Bag - Provider: Anges Love RN) PRN Medication Order 11/01/2023 11/02/2023 [...] - Reason: Transfer to a Procedural area)1548 ([facility] Unhold - Provider: Admin Adt) [...] - Reason: Transfer to a Procedural area)1548 ([facility] Unhold - Provider: Admin Adt) documented in this encounter Additional Health Concerns Infection Onset Date Last Indicated Resolved Time Rule Out Respiratory 11/02/2023 11/02/2023 024 12:22 PM EDT Rule Out COVID-19 11/02/2023 11/02/2023 11/02/2023 12:22 PM EDT documented as of this encounter Care Teams Excellence Leader Relationship Specialty Start Date End Date Rosie Mathews MD [address] [place] [address] PCP - General Family Medicine 11/25/17 11/23/23 documented as of this encounter
--- OUTSIDE RECORDS SUMMARY | 2024-04-24 21:50 | XMS_ITS | Encounter Summary ---
Author Organization [facility]ly [facility] Address [facility] [place] [address] Care Team Providers Care Anodic Operator Name Role Phone Rosie Mathews MD Primary Care Provider [phone] Encounter Details Date Type Department Care Team (Late st Contact Info) Description 10/30/2023 [place] [phone] Jose Lee MD [facility] [place] [address] Social History Tobacco Use Types Packs/Day Years [...] Date: 10/30/2023 Referring Provider: Bree Patient Location: [facility] HPI: 83 yoF w/ PMHx of HTN, [...] in the patient condition. Jose Lee MD [place] [facility] documented in this encounter Plan of Treatment Upcoming Encounters Date Type Department Care Team (Late st Contact Info) Description 10/24/2024 11:00 AM EDT Office Visit Cardiology at [address] [place] [address] Izaiah Meyer MD [facility] [place] [address] documented as of this encounter Visit Diagnoses Not on filedocumented in this encounter Care Teams Anodic Operator Relationship Specialty Start Date End Date Rosie Mathews MD [address] [place] [address] PCP - General Family Medicine 11/25/17 11/23/23 documented as of this encounter
--- OUTSIDE RECORDS SUMMARY | 2024-04-24 21:50 | XMS_ITS | Encounter Summary ---
Author Organization [facility] Address [address] [place] [address] Care Team Providers Care Vehicle Insurance Agent Name Role Phone Unavailable Primary Care Provider Unavailabl e Encounter Details Date Type Department Care Team (Late st Contact Info) Description 01/10/2008 Before PRISM Converted Visit ([facility]) [facility] conversion [address] [place] [address] Ray Farooq MD [address] [place] [phone] Social History Tobacco Use Types Packs/Day Years Used Date Smoking Tobacco: Never Assessed Sex and Gender Information Value Date Recorded Sex Assigned at Not on file Gender Identity Not on file Sexual Orientation Not on file documented as of this encounter Consult Notes * Ray Farooq MD - 03/21/2009 6862 EDT [facility] - 01/10/2008 Kirsten Bateman MD [facility] [address] [place] [address] Bateman: Chief complaint: Hearing loss. History of present illness: Jqpuf-lophd-lpgq-old female with along history of bilateral hearing [...] is a nonsmoker, nondrinker. She lives in [place]. Review of systems is significant for allergies, [...] Tosin Farooq MD - MLD Job ID: [id number] Doc ID: [id number] cc: Kirsten Bateman MD cc: Kirsten Bateman MD documented in this encounter Plan of Treatment Not on file documented as of this encounter Visit Diagnoses Not on filedocumented in this encounter
--- OUTSIDE RECORDS SUMMARY | 2024-04-24 21:50 | XMS_ITS | Clinical Summary ---
Author Organization [facility] Address [address] [place] [address] Care Team Providers Care Returns Processor Name Role Phone Unavailable Primary Care Provider [...]
--- OUTSIDE RECORDS SUMMARY | 2024-04-24 21:50 | XMS_ITS | Encounter Summary ---
Author Organization [facility] Address [address] [place] [address] Care Team Providers Care Customer Service Consultant Name Role Phone Unavailable Primary Care Provider Unavailabl e Reason for Visit * Reason Comments Hearing Loss tinnitus Encounter Details Date Type Department Care Team (Latest Contact Info) Description 01/15/2010 10:10 EDT Office Visit [address] [address] Unknown, Provider, Ray Orosco MD [address] [place] [address] [address] [place] [address] Sensorineural hearing loss, bilateral; Subjective [...] Ray Farooq MD - 01/28/2010 1108 EDT [facility] PRO[facility]ESS/FOLLOWUP NOTE - 01/15/2010 CHIEF COMPLAINT: [...] Signed by Ray Farooq MD 01/28/2010 11:08 aRy Farooq MD - Ray Farooq [place] - [facility] Job ID: SM Doc ID: [id number] Ext Doc ID: [id number] cc: Kirsten Bateman MD * Ray Farooq [...]
--- OUTSIDE RECORDS SUMMARY | 2024-04-24 21:50 | XMS_ITS | Encounter Summary ---
Author Organization [facility] Address [address] [place] [address] Care Team Providers Care Assembler [employer] Spider Name Role Phone Unavailable Primary Care Provider Unavailabl e Encounter Details Date Type Department Care Team (Late st Contact Info) Description 01/14/2010 Abstract Used for ABSTRACTING Data [phone] Kirsten Bateman MD Social History Tobacco Use [...] OIL/COCONUT OIL (FATTY ACID BASE MISC) by [facility]Non-Drug; Combo Route) route. EPA CYANOCOBALAMIN (VITAMIN B-12 ORAL) Take by mouth. ASCORBIC ACID (VITAMIN C ORAL) Take by mouth. VITAMIN E ACETATE (VITAMIN E ORAL) Take by mouth. ASPIRIN ORAL Take by mouth. AMITRIPTYLINE HCL (AMITRIPTYLINE ORAL) Take by mouth. ATENOLOL ORAL Take by mouth. SIMVASTATIN ORAL Take by mouth. added in this encounter
--- NOTE | 2024-04-24 22:22 | W.PC.ACHO ---
Registration Status: Primary Language: Preferred Language: ED Information & Data Chief Complaint Dizzy/Sync 04/24/24 19:00 Triage Note patient complaining of being 04/24/24 17:10 dizzy intermittently with with elevated HR and BP. Medical / Surgical History (Last Reviewed 04/24/24 @ 20:22 by Mike Nicholson) Neck pain First degree AV block Stress incontinence Hyperlipidemia Hematemesis Piriformis syndrome Hypertension Aortic arch aneurysm CAD (coronary artery disease), [place] coronary artery (Last Reviewed 04/24/24 @ 20:22 by Mike Nicholson) History of rotator cuff surgery S/P KALLI-BSO Most Recent Vital Signs Temperature 36.2 C L 04/24/24 21:50 Temperature Source Temporal Artery Scan 04/24/24 20:00 Pulse 60 04/24/24 21:50 Pulse Rhythm Irregular 04/24/24 21:50 Pulse 101 H 04/24/24 21:02 Respiratory Rate 14 04/24/24 21:50 Respiratory Effort Normal 04/24/24 21:50 Respiratory Depth Normal 04/24/24 21:50 Respiratory Pattern Normal 04/24/24 21:50 Blood Pressure 170/73 H 04/24/24 21:50 Blood Pressure Mean 125 04/24/24 21:02 Blood Pressure Position Sitting 04/24/24 17:10 Pulse Oximetry 95 04/24/24 21:50 Oxygen Delivery Method Room Air 04/24/24 21:50 Oxygen Flow Rate 0 04/24/24 21:50 Pain Level 0 04/24/24 21:50 Allergies hydrocodone Allergy (Intermediate, Unverified 04/24/24 17:14) Itching oxycodone HCl (From Percocet) Allergy (Intermediate, Unverified 04/24/24 17:14) Itching prednisone Allergy (Intermediate, Unverified 04/24/24 17:14) Swelling/Edema lisinopril Allergy (Mild, Verified 04/24/24 17:14) Other (See Comment) cough Precautions Isolation Standard precaution 04/24/24 17:59 IV IV Catheter Type [Left Saline Lock Antecubital] IV Catheter Gauge [Left 18 Antecubital] Diet Orders Category Date Time Status Heart Healthy Eating [DIET] Nutrition 04/25/24 Breakfast Ordered Diagnostics 04/24/24 04/24/24 04/24/24 Range/Units 21:48 20:52 19:37 WBC (4.4-10.8) 10^3/uL RBC (3.93-5.22) 10^6/uL Hgb (11.2-15.7) g/dL Hct (36.0-46.0) % MCV (80-95) fL MCH (27.0-33.0) pg MCHC (32.0-36.0) % RDW (11.7-14.6) % Plt Count (130-400) 10^3/uL MPV (8.0-11.0) fL Immature Gran % % Neutrophils % % Lymphocytes % % Monocytes % % Eosinophils % % Basophils % % Nucleated RBC % (0.0-0.3) % Absolute Neutrophils (1.2-6.7) 10^3/uL Absolute Lymphocytes (1.2-3.4) 10^3/uL Absolute Monocytes (0.1-0.8) 10^3/uL Absolute Eosinophils (0.0-0.7) 10^3/uL Absolute Basophils (0.0-0.2) 10^3/uL Sodium (136-145) mmol/L Potassium (3.5-5.1) mmol/L Chloride (98-107) mmol/L Carbon Dioxide (21.0-32.0) mmol/L Anion Gap (3-11) mmol/L BUN (7-18) mg/dL Creatinine (0.55-1.02) mg/dL Est GFR (CKD-EPI 2020) (mL/min/1.73m2) Glucose (74-106) mg/dL Calcium (8.5-10.1) mg/dL Magnesium (1.8-2.4) mg/dL Total Bilirubin (0.2-1.0) mg/dL AST (15-37) U/L ALT (14-59) U/L Alkaline Phosphatase (46-116) U/L Troponin I Pending 17 (<or=51) ng/L Total Protein (6.4-8.2) g/dL Albumin (3.4-5.0) g/dL TSH Pending (0.36-3.74) uIU/mL Urine Color (Yellow) Urine Clarity (Clear) Urine pH (5-8) Ur Specific [place] (1.005-1.025) Urine Protein (Neg-Trace) mg/dL Urine Ketones (Negative) mg/dL Urine Blood (Negative) Urine Nitrite (Negative) Urine Bilirubin (Negative) Urine Urobilinogen (Up to 0.2) mg/dL Ur Leukocyte Esterase (Negative) Urine Glucose (Negative) mg/dL COVID-19 Source Nasal/Nares SARS-CoV-2 (PCR) Negative (Negative) 04/24/24 04/24/24 04/24/24 Range/Units 19:10 17:37 17:10 WBC 6.77 (4.4-10.8) 10^3/uL RBC 4.11 (3.93-5.22) 10^6/uL Hgb 14.0 (11.2-15.7) g/dL Hct 40.6 (36.0-46.0) % MCV 99 H (80-95) fL MCH 34.1 H (27.0-33.0) pg MCHC 34.5 (32.0-36.0) % RDW 13.3 (11.7-14.6) % Plt Count 184 (130-400) 10^3/uL MPV 11.0 (8.0-11.0) fL Immature Gran % 0.1 % Neutrophils % 48.9 % Lymphocytes % 32.8 % Monocytes % 13.7 % Eosinophils % 3.8 % Basophils % 0.7 % Nucleated RBC % 0.0 (0.0-0.3) % Absolute Neutrophils 3.30 (1.2-6.7) 10^3/uL Absolute Lymphocytes 2.22 (1.2-3.4) 10^3/uL Absolute Monocytes 0.93 H (0.1-0.8) 10^3/uL Absolute Eosinophils 0.26 (0.0-0.7) 10^3/uL Absolute Basophils 0.05 (0.0-0.2) 10^3/uL Sodium 143 (136-145) mmol/L Potassium 3.9 (3.5-5.1) mmol/L Chloride 107 (98-107) mmol/L Carbon Dioxide 31.1 (21.0-32.0) mmol/L Anion Gap 4.9 (3-11) mmol/L BUN 20 H (7-18) mg/dL Creatinine 1.0 (0.55-1.02) mg/dL Est GFR (CKD-EPI 2020) 55.55 (mL/min/1.73m2) Glucose 78 (74-106) mg/dL Calcium 10.7 H (8.5-10.1) mg/dL Magnesium 1.8 (1.8-2.4) mg/dL Total Bilirubin 0.52 (0.2-1.0) mg/dL AST 28 (15-37) U/L ALT 33 (14-59) U/L Alkaline Phosphatase 49 (46-116) U/L Troponin I 16 17 (<or=51) ng/L Total Protein 7.4 (6.4-8.2) g/dL Albumin 3.7 (3.4-5.0) g/dL TSH 3.03 (0.36-3.74) uIU/mL Urine Color Yellow (Yellow) Urine Clarity Clear (Clear) Urine pH 6.0 (5-8) Ur Specific [place] 1.015 (1.005-1.025) Urine Protein Negative (Neg-Trace) mg/dL Urine Ketones Negative (Negative) mg/dL Urine Blood Negative (Negative) Urine Nitrite Negative (Negative) Urine Bilirubin Negative (Negative) Urine Urobilinogen 0.2 (Up to 0.2) mg/dL Ur Leukocyte Esterase Negative (Negative) Urine Glucose Negative (Negative) mg/dL COVID-19 Source SARS-CoV-2 (PCR) (Negative) Intake and Output - 24 Hour Total 04/24/24 17:08 thru 04/24/24 21:50 Weight 70.45 kg Falls Risk Assessment History of Falls Previous History 04/24/24 21:50 Contributing Factors Unstable 04/24/24 21:50 Ambulatory Aids Independent 04/24/24 21:50 Tubes/Lines W/no contributing factors 04/24/24 21:50 Gait Evaluation No gait disturbance 04/24/24 21:50 Cognition No cognitive impairment 04/24/24 21:50 Fall Total Score 28 04/24/24 21:50 Level of Risk Moderate Risk 04/24/24 21:50 Problems (Last Reviewed 04/24/24 @ 20:22 by Mike Nicholson) Hypertension (Chronic) Bradycardia (Acute) Dizziness (Acute) Tachyarrhythmia (Chronic) v v v v v v v v v Sending and/or Receiving Nurses: Please use comment section below to note any information pertinent to the patient hand-off not included above. Information / Comments: 83 y/o F full code, increased BP and HR presented to ER. Presenting HR was 48, trends beatrice usually. 107bpm highest in ER. Standby. 18g L AC. On Tele Report received from:Deja ALMENDAREZ [id number]
[2024-04-25 03:27] VITALS: BP 160/60; PULSE 53; RESP 16; TEMP 36.9; O2SAT 92
[2024-04-25 07:09] LABS: HCT 38.9 % (36.0-46.0); HGB 13.5 g/dL (11.2-15.7); MCH 34.2 pg (27.0-33.0); MCHC 34.7 % (32.0-36.0); MCV 99 fL (80-95); MPV 11.5 fL (8.0-11.0); Platelet Count 179 10^3/uL (130-400); RBC 3.95 10^6/uL (3.93-5.22); RDW 13.3 % (11.7-14.6); RDW-SD 48.5 fL; WBC 6.65 10^3/uL (4.4-10.8)
[2024-04-25 07:37] VITALS: BP 155/60; PULSE 47; RESP 16; TEMP 37; O2SAT 96
[2024-04-25 07:38] LABS: Troponin I 21 ng/L (<or=51)
[2024-04-25 07:39] LABS: ALT 29 U/L (14-59); AST 25 U/L (15-37); Albumin 3.3 g/dL (3.4-5.0); Alkaline Phosphatase 44 U/L (46-116); Anion Gap 9.7 mmol/L (3-11); BUN 20 mg/dL (7-18); Bilirubin, Total 0.58 mg/dL (0.2-1.0); CO2 27.3 mmol/L (21.0-32.0); CREATININE 1.1 mg/dL (0.55-1.02); Calcium 10.6 mg/dL (8.5-10.1); Chloride 109 mmol/L (98-107); Estimated GFR 49.55 (mL/min/1.73m2); Glucose 90 mg/dL (74-106); Magnesium 1.7 mg/dL (1.8-2.4); Potassium 3.9 mmol/L (3.5-5.1); Sodium 146 mmol/L (136-145); Total Protein 6.6 g/dL (6.4-8.2)
[2024-04-25] MEDS: Clopidogrel 75 MG TAB PO (08:55)
[2024-04-25] MEDS: Vitamins B Comp w/C TAB 1 TAB PO (08:55)
[2024-04-25] MEDS: Spironolactone 25 MG TAB PO (08:55)
[2024-04-25] MEDS: Aspirin 81 MG CHEW PO (08:55)
[2024-04-25] MEDS: Losartan 50 MG TAB 100 MG PO (08:56)
[2024-04-25] MEDS: Ascorbic Acid 500 MG TAB PO (08:57)
[2024-04-25] MEDS: Oxybutynin 5 MG TAB PO (08:57)
[2024-04-25] MEDS: Normal Saline Flush 10 ML SYR IVP ×2 (08:57→20:37)
--- NOTE | 2024-04-25 09:26 | INITIAL_ITS ---
Date of service: 04/25/24 Time of Service: 09:26 Care Management Initial Assmt Initial Assessment Reason for Hospitalization: tachycardia Functional Status/Living Situation Patient Presentation: Lyla was sitting up in a chair finishing her lunch when CM met with her. She was very pleasant and engaged easily with CM but was very hard of hearing. She explained that she reads lips when conversing because of her hearing deficit. Lyla lives alone in an apartment in [place] which she is very fond of. Lyla has 3 daughters and many grandchildren. Her youngest daughter Iris lives in [place], about 5 minutes from Lyla. Her oldest lives in [place], [place] and the middle daughter lives in [place]. Lyla shared that they are a close family and keep in touch regularly. Lyla is independent with ADLs and activities and continues to drive. She does not receive any community services. She talked a bit about her recent health issues which began when she had an [place] a few months ago and have continued since. She reported that she always feels really, really tired. Lyla also talked about her spirituality and the strength and peace her oni has brought her. Town of Residence: [place] Resides with: Alone Significant Other/Family: Local (one daughter in [place]) Employment Status: Retired Instrumental Activities of Daily Living (ADLs): Independent Medications Medication Management: No Issues/Barriers identified Advance Directives Advance Directives: Do you have an Advance Directive: Y 12/10/14 08:53 AD On File at [facility]: Y 12/10/14 08:53 Date Asked 04/24/24 04/24/24 17:16 AD Date Reviewed 04/24/24 04/24/24 17:17 COLST On File at [facility] COLST Date Scanned Code Status Resuscitation Status Full Code Portal Pt does not currently have a portal and education provided: No Insurance Coverage/Financial Issues Insurance: [employer] 100 Care Team Visit Care Team Role Provider Type Masood Pierson MD Primary Care Provider NON-[facility] STAFF PHYSICIAN Saw Bueno MD Emergency Provider [facility] STAFF PHYSICIAN Mike Nicholson Admit Provider NON-[facility] STAFF PHYSICIAN Attending Provider Discharge Potential Discharge Needs: PCP F/U Appt and Other (Cardiology) Anticipated Barriers to Discharge: None Identified Patient/Family Education Needs: Review discharge instructions, discuss Ask Me Three Transportation: Private vehicle Plan: Anticipate Lyla will be discharged home with no new services. She will follow up with her PCP and Mechanical Maintenance Instructor and transport with family. CM will follow and continue to assess for discharge planning concerns. PFSH All Active Problems (Updated 04/24/24 @ 23:30 by Mike Nicholson) Hypertension (Chronic) Bradycardia (Chronic) Dizziness (Acute) Headache (Acute) Mechanical low back pain (Acute) Spinal stenosis of lumbar region (Acute) Lumbar spondylosis (Acute) Tachyarrhythmia (Acute) Tinnitus, bilateral (Acute) Sensorineural hearing loss of both ears (Acute) Medical History Neck pain First degree AV block Stress incontinence Hyperlipidemia Hematemesis Piriformis syndrome Hypertension Aortic arch aneurysm CAD (coronary artery disease), [place] coronary artery Surgical History History of rotator cuff surgery S/P KALLI-BSO Family History Mother Hypertension Stroke Heart disease Social History Smoking/Tobacco Use Status: Former Tobacco Use Smoking risk assessment performed?: Yes Alcohol Intake: never Drug use: Never Substance use type: does not use Housing: apartment Do you feel safe at home: Yes Do you feel safe in your relationship?: Yes SDOH(Care Management) Screening Will the Patient Participate in the Screening?: Yes Do you worry about having a steady place to live?: no In the past 12 months, have you had to go without electric, gas, oil or water in your home?: no Have you or anyone in your house had to go without enough food to eat?: no Has lack of transportation kept you from medical appointments or from doing things needed for daily living?: no Has anyone in your support network made you feel unsafe for any reason?: no
[2024-04-25] MEDS: Enoxaparin 40 MG/0.4 ML SYR SC (10:04)
[2024-04-25 11:26] VITALS: BP 122/78; PULSE 57; RESP 16; TEMP 36.6; O2SAT 96
--- NOTE | 2024-04-25 12:08 | PHA.REVIEW2 ---
Pharmacy Admission Review Admission Clinical Review Admission Pharmacy Review: Dizziness (Acute) Tachyarrhythmia (Acute) hydrocodone Allergy (Intermediate, Unverified 04/24/24 17:14) Itching oxycodone HCl (From Percocet) Allergy (Intermediate, Unverified 04/24/24 17:14) Itching prednisone Allergy (Intermediate, Unverified 04/24/24 17:14) Swelling/Edema lisinopril Allergy (Mild, Verified 04/24/24 17:14) Other (See Comment) Resuscitation Status Full Code Height 5 ft Weight 70.5 kg Pharmacy Admission Review Renal Dosing Renal Dosing: BUN 20 mg/dL (7-18) H 04/25/24 05:30 Creatinine 1.1 mg/dL (0.55-1.02) H 04/25/24 05:30 Medications needing adjustments: Intervened (CrCl 33.32 mL/min, SCr increased from 1) List of meds needing interventions: Height had been put in wrong for patient - put in as 5 inches instead of 5 feet. I corrected and then changed enoxaparin order from 30mg daily to 40mg daily. Provider aware. Anticoagulation Anticoagulation: Hgb 13.5 g/dL (11.2-15.7) 04/25/24 05:30 Hct 38.9 % (36.0-46.0) 04/25/24 05:30 Plt Count 179 10^3/uL (130-400) 04/25/24 05:30 Creatinine 1.1 mg/dL (0.55-1.02) H 04/25/24 05:30 DVT Prophylaxis: Intervened (see above) Medications: Enoxaparin (40mg daily) Relevant Labs Relevant Labs: Sodium 146 mmol/L (136-145) H 04/25/24 05:30 Potassium 3.9 mmol/L (3.5-5.1) 04/25/24 05:30 Chloride 109 mmol/L (98-107) H 04/25/24 05:30 Magnesium 1.7 mg/dL (1.8-2.4) L 04/25/24 05:30 Electrolytes, C-Reactive P, ESR: Reviewed Cardiac Review Cardiac Review: Troponin I 21 ng/L (<or=51) 04/25/24 05:30 Blood Pressure 122/78 1126 Blood Pressure 155/60 0737 Blood Pressure 160/60 0327 BP, HR, EF%: Reviewed (HR 57 - has ranged form 47-57 so far today) List meds needing interventions: Has order for losartan 50mg daily and metoprolol 12.5mg q6h. Losartan had been ordered as 100mg daily, reached out to provider to make sure this was correct as patient takes 50mg daily at home. Provider looked into it and changed order to 50mg daily. QTc Review QTc: Reviewed (586 from 04/24/24) IV to PO Switch IV Medications: Reviewed Home Meds Home Med List reviewed: Reviewed Current Meds Current Medication Order Review: Intervened Comments: Spoke to provider regarding losartan order - see cardiac review above
[2024-04-25 15:33] VITALS: BP 123/73; PULSE 56; RESP 14; TEMP 36.4; O2SAT 94
--- NOTE | 2024-04-25 16:19 | W.PM.PROGNOT ---
Date of Service Date of service: 04/25/24 Time of Service: 16:19 Assessment and Plan Assessment and plan (1) Tachyarrhythmia: Status: Acute Assessment and plan: HR has been 45-108 today - no junctional rhythm, patient has no complaints VSS continue telemetry cards consult pending (2) Bradycardia: Status: Chronic Assessment and plan: Patient has baseline bradycardia ~45-55 Continue holding metoprolol. Cards consult pending (3) Hypertension: Assessment and plan: Contninue home meds Qualifiers: Hypertension type: primary hypertension Qualified Code(s): I10 - Essential (primary) hypertension (4) CAD (coronary artery disease), [place] coronary artery: Assessment and plan: Status post stenting x 3 Continue aspirin and Plavix Qualifiers: [place] vs. transplanted heart: [place] heart Associated angina: with other forms of angina Qualified Code(s): I25.118 - Atherosclerotic heart disease of [place] coronary artery with other forms of angina pectoris (5) Hyperlipidemia: Assessment and plan: Continue high-dose statin. Qualifiers: Hyperlipidemia type: other hyperlipidemia Qualified Code(s): E78.49 - Other hyperlipidemia Subjective Subjective Patient reports: no new complaints, tolerating liquids well, tolerating a regular diet, voiding w/o difficulty, bowel movement and afebrile; denies flatus, diarrhea, nausea, vomiting or shortness of breath Interval history since last seen: Awake, alert, sitting in bed. No complaints. Exam Const General: cooperative, comfortable and no acute distress Orientation: alert and oriented x3 Eyes Pupils: PERRL Resp Effort & Inspection: normal respiratory effort Auscultation: clear to auscultation bilaterally Cardio Rate: bradycardic (50's asymptomatic ) Rhythm: regular rhythm Skin General skin exam: no rashes or lesions noted Neuro General: patient alert and patient oriented x3 Cognition: normal cognition Speech: speech normal Gait: normal gait Motor: strength 5/5 throughout Psych Mental Status: mental status grossly normal Speech and Movement: speech and movement normal Mood: congruent mood Affect: normal affect Objective Last Vital Signs Temp 36.4 C L 04/25/24 15:33 Pulse 56 L 04/25/24 15:33 Resp 14 04/25/24 15:33 BP 123/73 04/25/24 15:33 Pulse Ox 94 04/25/24 15:33 Laboratory Results - last 24 hr 04/24/24 04/24/24 04/24/24 17:10 17:37 19:10 WBC 6.77 RBC 4.11 Hgb 14.0 Hct 40.6 MCV 99 H MCH 34.1 H MCHC 34.5 RDW 13.3 Plt Count 184 MPV 11.0 Immature Gran % 0.1 Neutrophils % 48.9 Lymphocytes % 32.8 Monocytes % 13.7 Eosinophils % 3.8 Basophils % 0.7 Nucleated RBC % 0.0 Absolute Neutrophils 3.30 Absolute Lymphocytes 2.22 Absolute Monocytes 0.93 H Absolute Eosinophils 0.26 Absolute Basophils 0.05 Sodium 143 Potassium 3.9 Chloride 107 Carbon Dioxide 31.1 Anion Gap 4.9 BUN 20 H Creatinine 1.0 Est GFR (CKD-EPI 2020) 55.55 Glucose 78 Calcium 10.7 H Magnesium 1.8 Total Bilirubin 0.52 AST 28 ALT 33 Alkaline Phosphatase 49 Troponin I 17 16 Total Protein 7.4 Albumin 3.7 TSH 3.03 Urine Color Yellow Urine Clarity Clear Urine pH 6.0 Ur Specific [place] 1.015 Urine Protein Negative Urine Ketones Negative Urine Blood Negative Urine Nitrite Negative Urine Bilirubin Negative Urine Urobilinogen 0.2 Ur Leukocyte Esterase Negative Urine Glucose Negative COVID-19 Source SARS-CoV-2 (PCR) 04/24/24 04/24/24 04/24/24 19:37 20:52 21:48 WBC RBC Hgb Hct MCV MCH MCHC RDW Plt Count MPV Immature Gran % Neutrophils % Lymphocytes % Monocytes % Eosinophils % Basophils % Nucleated RBC % Absolute Neutrophils Absolute Lymphocytes Absolute Monocytes Absolute Eosinophils Absolute Basophils Sodium Potassium Chloride Carbon Dioxide Anion Gap BUN Creatinine Est GFR (CKD-EPI 2020) Glucose Calcium Magnesium Total Bilirubin AST ALT Alkaline Phosphatase Troponin I 17 Cancelled Total Protein Albumin TSH Cancelled Urine Color Urine Clarity Urine pH Ur Specific [place] Urine Protein Urine Ketones Urine Blood Urine Nitrite Urine Bilirubin Urine Urobilinogen Ur Leukocyte Esterase Urine Glucose COVID-19 Source Nasal/Nares SARS-CoV-2 (PCR) Negative 04/25/24 05:30 WBC 6.65 RBC 3.95 Hgb 13.5 Hct 38.9 MCV 99 H MCH 34.2 H MCHC 34.7 RDW 13.3 Plt Count 179 MPV 11.5 H Immature Gran % Neutrophils % Lymphocytes % Monocytes % Eosinophils % Basophils % Nucleated RBC % Absolute Neutrophils Absolute Lymphocytes Absolute Monocytes Absolute Eosinophils Absolute Basophils Sodium 146 H Potassium 3.9 Chloride 109 H Carbon Dioxide 27.3 Anion Gap 9.7 BUN 20 H Creatinine 1.1 H Est GFR (CKD-EPI 2020) 49.55 Glucose 90 Calcium 10.6 H Magnesium 1.7 L Total Bilirubin 0.58 AST 25 ALT 29 Alkaline Phosphatase 44 L Troponin I 21 Total Protein 6.6 Albumin 3.3 L TSH Urine Color Urine Clarity Urine pH Ur Specific [place] Urine Protein Urine Ketones Urine Blood Urine Nitrite Urine Bilirubin Urine Urobilinogen Ur Leukocyte Esterase Urine Glucose COVID-19 Source SARS-CoV-2 (PCR) Time Spent with Patient Time Spent with Patient: 25-34 minutes Time was spent: preparing to see the patient(eg.review tests), ordering medications,tests, procedures, referring, communicating with other health child caregiver private home, indepentently interpreting results, counseling the patient and care coordination
[2024-04-25] MEDS: Acetaminophen 325 MG TAB PO (16:58)
[2024-04-25 19:25] VITALS: BP 120/75; PULSE 80; RESP 16; TEMP 36.7; O2SAT 95
[2024-04-25] MEDS: Atorvastatin 40 MG TAB 80 MG PO (20:33)
[2024-04-25] MEDS: Metoprolol 12.5 MG TAB PO (20:34)
[2024-04-25 23:05] VITALS: BP 126/65; PULSE 48; RESP 14; TEMP 36.8; O2SAT 95
[2024-04-26 03:10] VITALS: BP 150/78; PULSE 48; RESP 14; TEMP 36.3; O2SAT 94
[2024-04-26 06:16] LABS: Abs Immature Grans 0.02 10^3/uL (0.0-0.06); Absolute Basophil Count 0.06 10^3/uL (0.0-0.2); Absolute Eosinophil Count 0.35 10^3/uL (0.0-0.7); Absolute Lymphocyte Count 2.16 10^3/uL (1.2-3.4); Absolute Neutrophil Count 2.89 10^3/uL (1.2-6.7); Basophils % 0.9 %; Eosinophils % 5.5 %; HCT 38.5 % (36.0-46.0); HGB 13.3 g/dL (11.2-15.7); Immature Grans % 0.3 %; Lymphocytes % 33.9 %; MCH 34.1 pg (27.0-33.0); MCHC 34.5 % (32.0-36.0); MCV 99 fL (80-95); Monocytes % 14.1 %; Neutrophils % 45.3 %; Platelet Count 179 10^3/uL (130-400); RDW 13.4 % (11.7-14.6); RDW-SD 48.6 fL; WBC 6.38 10^3/uL (4.4-10.8)
[2024-04-26 06:29] LABS: Anion Gap 8.6 mmol/L (3-11); BUN 23 mg/dL (7-18); CO2 27.4 mmol/L (21.0-32.0); Calcium 9.8 mg/dL (8.5-10.1); Chloride 109 mmol/L (98-107); Estimated GFR 55.55 (mL/min/1.73m2); Glucose 100 mg/dL (74-106); Magnesium 1.7 mg/dL (1.8-2.4); Potassium 3.9 mmol/L (3.5-5.1); Sodium 145 mmol/L (136-145)
[2024-04-26 07:48] VITALS: BP 128/67; PULSE 45; RESP 20; TEMP 36.8; O2SAT 95
[2024-04-26] MEDS: Aspirin 81 MG CHEW PO (07:56)
[2024-04-26] MEDS: Normal Saline Flush 10 ML SYR IVP ×3 (07:56→20:37)
[2024-04-26] MEDS: Losartan 25 MG TAB 50 MG PO (07:56)
[2024-04-26] MEDS: Ascorbic Acid 500 MG TAB PO (07:56)
[2024-04-26] MEDS: Spironolactone 25 MG TAB PO (07:56)
[2024-04-26] MEDS: Vitamins B Comp w/C TAB 1 TAB PO (07:56)
[2024-04-26] MEDS: Oxybutynin 5 MG TAB PO (07:56)
[2024-04-26] MEDS: Clopidogrel 75 MG TAB PO (07:56)
--- NOTE | 2024-04-26 09:06 | CMPROGNOTE_ITS ---
Date of service: 04/26/24 Time of Service: 09:06 Care Management Progress Note Progress Note Text Progress Note Text: Lyla was sitting up in a chair when CM met with her. She was pleasant and engaged easily with CM. Lyla has been accepted for transfer to [facility]. She informed CM that she is to remain at [facility] until Tuesday when a bed will be available. 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 Lyla stated that she has some dizziness but her vital signs are stable. She has been sitting up in her chair much of the day and has been chatting on the phone with friends and relatives. Discharge Potential Discharge Needs: PCP F/U Appt Anticipated Barriers to Discharge: None Identified Patient/Family Education Needs: Review discharge instructions, discuss Ask Me Three Transportation: Private vehicle Plan: Anticipate Lyla will be discharged home with no new services. She will follow up with her PCP and Customer Service Representative Teller and transport with family. CM will follow and continue to assess for discharge planning concerns. SDOH(Care Management) Screening Will the Patient Participate in the Screening?: Yes Do you worry about having a steady place to live?: no In the past 12 months, have you had to go without electric, gas, oil or water in your home?: no Have you or anyone in your house had to go without enough food to eat?: no Has lack of transportation kept you from medical appointments or from doing things needed for daily living?: no Has anyone in your support network made you feel unsafe for any reason?: no
--- NOTE | 2024-04-26 09:09 | W.CARDCONSUL ---
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 It is not junctional. It is not SVT or PAF (2) Bradycardia: Status: Chronic Assessment and plan: Resting bradycardia in the 40s. She should not be given additional beta-blockers She will need to follow-up with electrophysiology. This could be done as an outpatient though if [facility] inpatient service has availability you could consider transfer there History of Present Illness Narrative: This is an 83-year-old woman with a history of coronary artery disease which dates back to the spring 2019 for which she was hospitalized at [facility]. She had percutaneous intervention initially to the right coronary and then the circumflex. Interestingly while at [facility] it was noted that she had intermittent episodic tachycardia, rate 100 -110, asymptomatic. On that basis she was started on low-dose metoprolol succinate 12.5 mg daily which has been continued. She follows with Dr. Meyer at [facility] cardiology, last visit March 29. Patient was admitted here because of concerns for tachycardia. Periodically she gets a tachycardic regular rhythm, clearly visible P waves so this is not junctional. 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 Unfortunately when not experiencing this, she has resting sinus bradycardia in the 40s. Metoprolol has appropriately been withheld. Review of Systems Narrative: Patient was not interviewed or examined [facility] All Active Problems (Updated 04/24/24 @ 23:30 by Mike Nicholson) Hypertension (Chronic) Bradycardia (Chronic) Dizziness (Acute) Headache (Acute) Mechanical low back pain (Acute) Spinal stenosis of lumbar region (Acute) Lumbar spondylosis (Acute) Tachyarrhythmia (Acute) Tinnitus, bilateral (Acute) Sensorineural hearing loss of both ears (Acute) Medical History Neck pain First degree AV block Stress incontinence Hyperlipidemia Hematemesis Piriformis syndrome Hypertension Aortic arch aneurysm CAD (coronary artery disease), [place] coronary artery Surgical History History of rotator cuff surgery S/P KALLI-BSO Family History Mother Hypertension Stroke Heart disease Social History Smoking/Tobacco Use Status: Former Tobacco Use Smoking risk assessment performed?: Yes Alcohol Intake: never Drug use: Never Substance use type: does not use Housing: apartment Do you feel safe at home: Yes Do you feel safe in your relationship?: Yes Results Last Vital Signs Temp 36.8 C 04/26/24 07:48 Pulse 45 L 04/26/24 07:48 Resp 20 04/26/24 07:48 BP 128/67 04/26/24 07:48 Pulse Ox 95 04/26/24 07:48 Labs 04/26/24 05:36 04/26/24 05:36 Labs: Laboratory Results - last 24 hr 04/26/24 05:36 WBC 6.38 RBC 3.90 L Hgb 13.3 Hct 38.5 MCV 99 H MCH 34.1 H MCHC 34.5 RDW 13.4 Plt Count 179 MPV 11.0 Immature Gran % 0.3 Neutrophils % 45.3 Lymphocytes % 33.9 Monocytes % 14.1 Eosinophils % 5.5 Basophils % 0.9 Nucleated RBC % 0.0 Absolute Neutrophils 2.89 Absolute Lymphocytes 2.16 Absolute Monocytes 0.90 H Absolute Eosinophils 0.35 Absolute Basophils 0.06 Sodium 145 Potassium 3.9 Chloride 109 H Carbon Dioxide 27.4 Anion Gap 8.6 BUN 23 H Creatinine 1.0 Est GFR (CKD-EPI 2020) 55.55 Glucose 100 Calcium 9.8 Magnesium 1.7 L
[2024-04-26] MEDS: Enoxaparin 40 MG/0.4 ML SYR SC (10:03)
[2024-04-26] MEDS: MAGNESIUM SULFATE 2 GM/50 ML BAG IV_INF (10:03)
[2024-04-26] MEDS: Docusate Sodium 100 MG CAP PO (10:16)
[2024-04-26 11:09] VITALS: BP 126/62; PULSE 50; RESP 20; TEMP 36.4; O2SAT 94
--- NOTE | 2024-04-26 11:48 | PGE_ITS ---
Date of Service Date of service: 04/26/24 Time of Service: 11:48 Assessment and Plan Assessment and plan (1) Tachyarrhythmia: Status: Acute Assessment and plan: HR has been mid 40's to 120 today Reported dizziness but VSS Will continue telemetry cards consult completed: Please read notes Recommendations: electrophysilogy inpatient VS outpatient [facility] cardilogy consulted: FLAVIO Alvarenga listed the patient for Tuesday- call back if acute changes (2) Bradycardia: Status: Chronic Assessment and plan: Patient has baseline bradycardia in the mid 40's S/p cardiology consult with Dr. Uriarte and [facility] cardilogy will continue holding metoprolol. Dr. Uriarte recommending electrophysiology and transfer to [facility] VS home and out patient electrophysiology Consult with cardiology FLAVIO Alvarenga from [facility]: Patient listed for transfer on sturdy (3) Hypertension: Assessment and plan: Continue home meds with parameters Qualifiers: Hypertension type: primary hypertension Qualified Code(s): I10 - Essential (primary) hypertension (4) CAD (coronary artery disease), [place] coronary artery: Assessment and plan: PCI with RCA and MCA stenting x 3 On home dose aspirin and Plavix Qualifiers: Associated angina: with other forms of angina [place] vs. transplanted heart: [place] heart Qualified Code(s): I25.118 - Atherosclerotic heart disease of [place] coronary artery with other forms of angina pectoris (5) Hyperlipidemia: Assessment and plan: On high-dose statin. Discussed with Dr. Chen Qualifiers: Hyperlipidemia type: other hyperlipidemia Qualified Code(s): E78.49 - Other hyperlipidemia Subjective Subjective Patient reports: tolerating liquids well, tolerating a regular diet, flatus, no bowel movement, shortness of breath and afebrile; denies diarrhea, blood in stool (04/25), nausea or vomiting Exam Narrative Exam Narrative: Constitutional The patient is sitting in chair, without acute distress Neuro: Alert and oriented to self, person, place, time and situation. No neurological focal deficit Chest:Chest is symmetrical and normal appearance Resp:Unlabored breathing, clear lung bilaterally Cardio: Tele SB/1 deg AVB HR 48 S1, S2, no murmur, bilateral radial and dorsalis pedis pulses are positive, no edema GI: Abdomen is not distended, soft and non tender, bowel sounds are present : Negative Costovertebral angle tenderness, no bladder distension Integumentary: No skin lesions or rash Extremities: strength 5/5 to bilateral lower and upper extremities Psych: RASS 0, congruent mood and normal affect. Objective Last Vital Signs Temp 36.4 C L 04/26/24 11:09 Pulse 50 L 04/26/24 11:09 Resp 20 04/26/24 11:09 BP 126/62 04/26/24 11:09 Pulse Ox 94 04/26/24 11:09 Laboratory Results - last 24 hr 04/26/24 05:36 WBC 6.38 RBC 3.90 L Hgb 13.3 Hct 38.5 MCV 99 H MCH 34.1 H MCHC 34.5 RDW 13.4 Plt Count 179 MPV 11.0 Immature Gran % 0.3 Neutrophils % 45.3 Lymphocytes % 33.9 Monocytes % 14.1 Eosinophils % 5.5 Basophils % 0.9 Nucleated RBC % 0.0 Absolute Neutrophils 2.89 Absolute Lymphocytes 2.16 Absolute Monocytes 0.90 H Absolute Eosinophils 0.35 Absolute Basophils 0.06 Sodium 145 Potassium 3.9 Chloride 109 H Carbon Dioxide 27.4 Anion Gap 8.6 BUN 23 H Creatinine 1.0 Est GFR (CKD-EPI 2020) 55.55 Glucose 100 Calcium 9.8 Magnesium 1.7 L Time Spent with Patient Time Spent with Patient: >50 minutes Time was spent: preparing to see the patient(eg.review tests), obtaining and/or reviewing separately otained hiistory, ordering medications,tests, procedures, referring, communicating with other health health care / medical job titles, indepentently interpreting results, counseling the patient and care coordination
[2024-04-26] MEDS: Mylanta Suspension 30 ML CUP PO (12:54)
[2024-04-26 16:00] VITALS: BP 145/73; PULSE 60; RESP 18; TEMP 36.6; O2SAT 94
--- NOTE | 2024-04-26 16:00 | CHAPLAIN ---
Lyla was up in the chair visiting with her daughter when I stopped in. She said she is waiting to hear about being transferred to [facility] for a pacemaker, but hasn't been told when she would be going and was a bit frustrated by that. Lyla is Voodoo and told me that she likes to read the bible and her daughter knows which verses she likes to read.
--- NOTE | 2024-04-26 20:06 | W.PM.DS.N ---
Date of service: 04/26/24 Time of Service: 20:17 DS: Diagnosis Discharge Diagnosis (1) Tachyarrhythmia: Status: Acute (2) Bradycardia: Status: Chronic (3) Hypertension: (4) CAD (coronary artery disease), [place] coronary artery: (5) Hyperlipidemia: Discharge Plan Disposition Patient Disposition: Transfer-Acute Inpatient Care Specific Acute Inpt Facility: [facility] Condition: Stable Discharge Details Reason For Visit: Tachyarrhythmia,CAD,HTN Admit Date/Time: 04/24/24 20:47 Admit Provider: Mike Nicholson Attending Provider: Mike Nicholson Primary Care Provider: Masood Pierson [place] Hospital Course Hospital Course: 83 yo F with history of CAD s/p [place] in October 2023, HTN, and history of tachyarrythmia who presented with generalized weakness and lightheadedness. She was found to have an atrial ectopic tachycardia (per Dr. Uriarte from Cardiology's interpretation) alternating with bradycardia in the 40s. She was admitted for monitoring in the ICU. She had been started on metoprolol at the time of her [place] 6 months prior. The metoprolol was decreased but she still had bradycardia to the 30s overnight. Metoprolol was stopped after she was seen by Dr. Uriarte, who recommended evaluation with electrophysiology for pace maker. [facility] cardiology was contacted and accepted the patient pending bed availability. Her lightheadedness and fatigue improved some. She continued to jump suddenly in and out of a supraventricular tachycardia, but her lows remained above 60 for the last 6 hours of monitoring off beta kristy therapy, so transport via ambulance with S was arranged. Home Meds and New Rx's Prescriptions: No Action ascorbate calcium (vitamin C) 500 MG tablet 1 tab PO DAILY aspirin 81 MG tablet,chewable 1 tab PO DAILY vitamin B complex [B-Complex] 1 EACH tablet 1 tab PO DAILY clopidogrel 75 mg tablet 75 mg PO DAILY nitroglycerin 0.4 mg tablet, sublingual 0.4 mg sublingual Q5M losartan 50 mg tablet 50 mg PO DAILY Patient Comments: TAKE ONE TABLET BY MOUTH EVERY DAY oxybutynin chloride 5 mg tablet 5 mg PO DAILY Patient Comments: TAKE ONE TABLET BY MOUTH AT BEDTIME NEEDED atorvastatin 80 mg tablet 80 mg PO DAILY spironolactone 25 mg tablet 25 mg PO DAILY metoprolol succinate 25 mg tablet extended release 24 hr 12.5 mg PO DAILY Discharge Instructions Activity:: Activity as Tolerated Equipment/Supplies:: No Equipment Needed Diet:: Low Sodium Discharge Orders Discharge Orders: Discharge Order (Routine); Ordered 04/26/24 Ordered By: Radu Oscar DS: Summary Time Spent with Patient providing and/or coordinating discharge services: Greater than 30 minutes Status at Discharge Functional status at discharge: independent ambulation Overall status at discharge: patient is not back to baseline Mental Status: mental status grossly normal Speech and Movement: speech and movement normal Mood: congruent mood Affect: normal affect Quality:SDOH Health Related Social Needs: Health related social needs details pt reports she hasnt been sick in 2-years. reports once she was at [facility] she felt she caught a cold. Exam Narrative Exam Narrative: GEN: The patient is sitting in chair, without acute distress, alert and oriented x 4 Resp:Unlabored breathing, clear lung bilaterally Cardio: tele with atrial tachycardia around 114, normal S1, S2, no murmur. Extremities: no cyanosis or edema Psych: RASS 0, congruent mood and normal affect. Psych Mental Status: mental status grossly normal Speech and Movement: speech and movement normal Mood: congruent mood Affect: normal affect DS: Data Vitals/I&O Vitals and I&O: Vital Signs Temperature 36.6 C 04/26/24 16:00 Temperature Source Temporal Artery Scan 04/26/24 16:00 Pulse 60 04/26/24 16:00 Pulse Rhythm Irregular 04/24/24 21:50 Pulse 101 H 04/24/24 21:02 Respiratory Rate 18 04/26/24 16:00 Respiratory Effort Normal 04/24/24 21:50 Respiratory Depth Normal 04/24/24 21:50 Respiratory Pattern Normal 04/24/24 21:50 Blood Pressure 145/73 H 04/26/24 16:00 Blood Pressure Mean 125 04/24/24 21:02 Blood Pressure Position Sitting 04/24/24 17:10 Pulse Oximetry 94 04/26/24 16:00 Oxygen Delivery Method Room Air 04/26/24 16:00 Oxygen Flow Rate 0 04/26/24 16:00 Pain Level 1 04/26/24 03:10 Intake & Output 04/25/24 04/26/24 04/26/24 23:59 11:59 23:59 Intake Total 300 / 300 Balance 300 / 300 Weight 70.4 kg Intake: IV 50 / 50 Oral 250 / 250 Other: Urine Color Yellow Yellow Yellow Urine Appearance Clear Clear Urine Odor None Comment pT says she has voided independently. unable to see patient's urine appearance. Patient void independently in the bathroom. pT stated she voided, she flushed before I could look to see color Data Completed and Pending Labs on day of discharge: Labs from last 24 hours 04/26/24 05:36 WBC 6.38 RBC 3.90 L Hgb 13.3 Hct 38.5 MCV 99 H MCH 34.1 H MCHC 34.5 RDW 13.4 Plt Count 179 MPV 11.0 Immature Gran % 0.3 Neutrophils % 45.3 Lymphocytes % 33.9 Monocytes % 14.1 Eosinophils % 5.5 Basophils % 0.9 Nucleated RBC % 0.0 Absolute Neutrophils 2.89 Absolute Lymphocytes 2.16 Absolute Monocytes 0.90 H Absolute Eosinophils 0.35 Absolute Basophils 0.06 Sodium 145 Potassium 3.9 Chloride 109 H Carbon Dioxide 27.4 Anion Gap 8.6 BUN 23 H Creatinine 1.0 Est GFR (CKD-EPI 2020) 55.55 Glucose 100 Calcium 9.8 Magnesium 1.7 L PFSH All Active Problems (Updated 04/24/24 @ 23:30 by Mike Nicholson) Hypertension (Chronic) Bradycardia (Chronic) Dizziness (Acute) Headache (Acute) Mechanical low back pain (Acute) Spinal stenosis of lumbar region (Acute) Lumbar spondylosis (Acute) Tachyarrhythmia (Acute) Tinnitus, bilateral (Acute) Sensorineural hearing loss of both ears (Acute) Medical History Neck pain First degree AV block Stress incontinence Hyperlipidemia Hematemesis Piriformis syndrome Hypertension Aortic arch aneurysm CAD (coronary artery disease), [place] coronary artery Surgical History History of rotator cuff surgery S/P KALLI-BSO Family History Mother Hypertension Stroke Heart disease Social History Smoking/Tobacco Use Status: Former Tobacco Use Smoking risk assessment performed?: Yes Alcohol Intake: never Drug use: Never Substance use type: does not use Housing: apartment Do you feel safe at home: Yes Do you feel safe in your relationship?: Yes Time Spent with Patient Time Spent with Patient: <45 minutes Time was spent: preparing to see the patient(eg.review tests), obtaining and/or reviewing separately otained hiistory, ordering medications,tests, procedures, referring, communicating with other health team primary care physician, indepentently interpreting results, counseling the patient and care coordination
[2024-04-26] MEDS: Atorvastatin 40 MG TAB 80 MG PO (20:36)
[2024-04-26 20:37] VITALS: BP 138/85; PULSE 67; RESP 18; TEMP 36.9; O2SAT 92
== END 2024-04-26 21:21 | disposition short-term general hospital (02) ==
LOC: ER 20:55 → MS 21:47
PROVIDERS: Nurse Practitioner Family; Admitting Provider Family Medicine; Emergency Provider Emergency Medicine; PCP Family Medicine; Visit Provider Family Medicine
DX: I47.10 Supraventricular tachycardia, unspecified (principal); I25.118 Atherosclerotic heart disease of native coronary artery with other forms of angina pectoris; I10 Essential (primary) hypertension; E78.5 Hyperlipidemia, unspecified; R53.1 Weakness; R00.1 Bradycardia, unspecified; M54.50 Low back pain, unspecified; H90.3 Sensorineural hearing loss, bilateral; I44.0 Atrioventricular block, first degree; M54.2 Cervicalgia; I71.22 Aneurysm of the aortic arch, without rupture; R42 Dizziness and giddiness; I25.2 Old myocardial infarction; Z79.899 Other long term (current) drug therapy
CPT/HCPCS: 00123; 36415; 80048; 80053; 85027; 87635; 93005; 96365; 96366; 96372; 99221; 99285; J1650; 81003; 83735; 84443; 84484; 85025; 93010; 99223; 99231; 99239; G0378; J3475; J3490

== ENCOUNTER 2024-07-25 15:40 | Outpatient (REF) | payer MEDICARE, SELFPAY ==
[2024-07-25 14:10] LABS: Abs Immature Grans 0.02 10^3/uL (0.0-0.06); Absolute Basophil Count 0.05 10^3/uL (0.0-0.2); Absolute Eosinophil Count 0.23 10^3/uL (0.0-0.7); Absolute Lymphocyte Count 1.49 10^3/uL (1.2-3.4); Absolute Monocyte Count 1.04 10^3/uL (0.1-0.8); Absolute Neutrophil Count 3.67 10^3/uL (1.2-6.7); Basophils % 0.8 %; Eosinophils % 3.5 %; HCT 38.8 % (36.0-46.0); HGB 13.5 g/dL (11.2-15.7); Immature Grans % 0.3 %; Lymphocytes % 22.9 %; MCH 34.1 pg (27.0-33.0); MCHC 34.8 % (32.0-36.0); MCV 98 fL (80-95); MPV 11.2 fL (8.0-11.0); Neutrophils % 56.5 %; Platelet Count 259 10^3/uL (130-400); RBC 3.96 10^6/uL (3.93-5.22); RDW 12.8 % (11.7-14.6); RDW-SD 46.5 fL
[2024-07-25 14:34] LABS: ALT 57 U/L (14-59); AST 42 U/L (15-37); Albumin 3.4 g/dL (3.4-5.0); Alkaline Phosphatase 80 U/L (46-116); Anion Gap 9.2 mmol/L (3-11); BUN 21 mg/dL (7-18); Bilirubin, Total 0.62 mg/dL (0.2-1.0); CO2 27.8 mmol/L (21.0-32.0); CREATININE 1.4 mg/dL (0.55-1.02); Calcium 9.9 mg/dL (8.5-10.1); Chloride 106 mmol/L (98-107); Glucose 89 mg/dL (74-106); Potassium 4.3 mmol/L (3.5-5.1); Sodium 143 mmol/L (136-145); TSH (W/Ref FT4) 1.84 uIU/mL (0.36-3.74); Total Protein 6.9 g/dL (6.4-8.2)
--- OUTSIDE RECORDS SUMMARY | 2024-07-25 15:43 | XMS_ITS | Encounter Summary ---
Author Organization [facility] [address] Care Team Providers Care Crane Operator Cab Name Role Phone Masood Pierson MD Primary Care Provider [phone] Reason for Visit * Auth/Cert (Routine) Specialty Diagnoses / Procedures Referred By Contac t Referred To Contact Diagnoses Tachy-jey syndrome Tachy Jey syndrome Procedures ER IPI ADMIT Lillie Miles MD [facility] [place] [address] [facility] Referral ID Status Reason Start Date Expiration Date Visits Re quested Visits Authorized [id number] 1 1 Encounter Details Date Type Department Care Team (Late st Contact Info) Description 04/30/2024 8:32 AM EST Anesthesia [place] [address] Jose Pleitez MD [facility] [place] [address] Sameer Armas MD [facility] [place] [address] Anesthesia Record Procedure Summary Procedure Name Responsible Anesthesiologist Anesthesia Start Time Anesthesia Stop Time ELECTROPHYSIOLOGY PROCEDURE Jose Pleitez MD 04/30/24 0832 04/30/24 1412 Events Date Time Event Comment 04/30/2024 0821 0832 AN Verify 0832 Start 0832 An Start Data 0843 Anesthesia Ready 0942 Break/Relief In I assumed ca re for Break Relief before which we: 1. Identified the patient 2. Identified the responsible provider(s) 3. Reviewed the pertinent medical history 4. Discussed the surgical plan and course 5. Reviewed intra-op anesthesia management and issues during anesthesia 6. Set expectations for the relief (and/or post-procedure) period 7. Allowed opportunity for questions and acknowledgement of understanding Mckenzie Lock, SOFTWARE QUALITY ASSURANCE SPECIALIST 0959 Break/Relief Out 1217 Break/Relief In I assumed ca re for Break Relief before which we: 1. Identified the patient 2. Identified the responsible provider(s) 3. Reviewed the pertinent medical history 4. Discussed the surgical plan and course 5. Reviewed intra-op anesthesia management and issues during anesthesia 6. Set expectations for the relief (and/or post-procedure) period 7. Allowed opportunity for questions and acknowledgement of understanding Ginger Donato, SOFTWARE QUALITY ASSURANCE SPECIALIST 1224 Procedure Start pacemaker 1246 Break/Relief Out 1404 an stop data 1411 Recovery or ICU Handoff Romina ent care was transferred to the destination unit staff after review of the patient's medical history, current anesthetic/surgical status and plan, according to the Provider Handoff Checklist. 1412 Stop Meds Name Total fentaNYL 100 mcg propofol INF 877.11 mg PHENYLephrine 120 mcg PHENYLephrine INF 9,575 mcg dexmedeTOMIDine 4 mcg/mL 4 mcg dexmedeTOMIDine 4 mcg/mL INF 23.32 mcg ceFAZolin 2 g ondansetron 4 mg acetaminophen IV 1,000 mg lactated ringers 400 mL * Agents Name O2 O2 Auxiliary Flowmeter 2 * Blood No blood administrations on file. Lines, Drains, and Airways Type Details Placement Removal Wound 11/01/23; 1157; dist al, lower, posterior, Right; arm; skin tear; Skin tear found because pt was complaining of itching at the tegaderm site from R radial site 11/01/23 1157 by Mary Sweeney, RN Incision 04/30/24; Right; groin 04/30/24 0000 by Agnes Law RN Incision 04/30/24; Left; groin 04/30/24 0 000 by Agnes Law RN Incision 04/30/24; Left, uppe r; chest 04/30/24 0000 by Agnes Law RN PIV 04/27/24 ([facility]); 1000; 18 gauge; median cubital vein (antecubital fossa), left; [facility]; 05/01/24; 1534 04/27/24 1000 by Isabelle Oden RN 05/01/24 1534 by Aniya Cruz LNA LDA Cath/EP Sheath 04/30/24; 0910; 5.5 Mexican (Fr); Proximal, Right; Femoral; Venous 04/30/24 0910 by Brian Hernandez RN 04/30/24 1155 by Brian Hernandez RN LDA Cath/EP Sheath 04/30/24; 0911; 5.5 Mexican (Fr); Proximal, Right; Femoral 04/30/24 0911 by Brian Hernandez RN 04/30/24 1155 by Brian Hernandez RN LDA Cath/EP Sheath 04/30/24; 0912; 8.5 Mexican (Fr); Left, Proximal; Femoral; Venous 04/30/24 0912 by Brian Hernandez RN 04/30/24 1155 by Brian Hernandez RN LDA Cath/EP Sheath 04/30/24; 0915; 7 Fr ench (Fr); Left, Proximal; Femoral; Venous 04/30/24 0915 by Brian Hernandez RN 04/30/24 1155 by Brian Hernandez RN documented in this encounter Social History Tobacco Use Types Packs/Day Years Used Date Smoking Tobacco: Former Smokeless Tobacco: Never Alcohol Use Standard Drinks/Week Comments Not Currently 0 (1 standard drink = 0.6 oz pur e alcohol) [facility] Utilities Answer Date Recorded In the past 12 months has [employer], gas, oil, or water [employer] threatened to shut off services in your home? No 04/27/2024 Hunger Vital Sign Answer Date Recorded Within the past 12 months, y ou worried that your food would run out before you got the money to buy more. Never true 04/27/20 24 Within the past 12 months, t he food you bought just didn't last and you didn't have money to get more. Never true 04/27/2024 PRAPARE - Transportation Answer Date Re corded In the past 12 months, has l ack of transportation kept you from medical appointments or from getting medications? No 01/2024 In the past 12 months, has l ack of transportation kept you from meetings, work, or from getting things needed for daily living? No 04/27/2024 Housing Stability Vital Sign Answer Mukesh e [...] in a snf (including now)? No 11/01/2023 Housing Stability Vital Sign Answer Mukesh e Recorded In the last 12 months, was t here a time when you were not able to pay the mortgage or rent on time? No 04/27/2024 In the past 12 months, how m any times have you moved where you were living? 0 04/27/2024 At any time in the past 12 m [facility], were you homeless or living in a snf (including now)? No 04/27/2024 IPV Inpatient Questions Answer Date Recorded Does Anyone Try to Keep You From Having Contact with Others or Doing Things Outside Your Home? no 04/26/2024 Feels Threatened by Someone no 12/2023 Feels Unsafe at Home or Work/School no 04/26/2024 Physical Signs of Abuse Present no 04/26/2024 Sex and Gender Information Value Date Recorded Sex Assigned at Not on file Gender Identity Not on file Sexual Orientation Not on file documented as of this encounter OR Notes * Anesthesia Postprocedure Evaluation - Jose Pleitez MD - 04/30/2024 2:32 PM EST Department of Anesthesiology Post-procedure Note Patient: Lyla Goodrich Procedure Summary Date: 04/30/24 Room / Location: EP A-LAB ROOM 3 / [facility] EP LABS Anesthesia Start: 831 Anesthesia Stop: 1411 Procedure: ELECTROPHYSIOLOGY PROCEDURE Diagnosis: (svt) Providers: Dre Powers MD Responsible Provider: Jose Pleitez MD Anesthesia Type: general ASA Status: 3 All Anesthesia Providers: Anesthesiologist: Jose Pleitez MD SOFTWARE QUALITY ASSURANCE SPECIALIST: Enrique Block CRNA Vitals Value Taken Time BP 95/65 04/30/24 1530 Temp 36.4 ??C (97.5 ??F) 04/30/24 1412 Pulse 62 04/30/24 1537 Resp 25 04/30/24 1537 SpO2 93 % 04/30/24 1537 Pain Level Vitals shown include unfiled device data. Patient Location: PACU/[facility] Level of Consciousness: Awake and Alert Pain Management: Satisfactory Analgesia PONV: None Cardiovascular Status: Hemodynamically Stable Respiratory Status: Stable Respiratory Status Postoperative Fluid Status: Intravascular EUvolemia Possible Anesthetic Complications: NONE apparent at time of evaluation Final Primary Anesthesia Type: General (The anesthetic type performed was the same as planned.) Comments: * Anesthesia Preprocedure Evaluation - Jose Pleitez MD - 04/30/2024 7:37 AM EST Pre-Anesthesia Evaluation for: Lyla Goodrich a 83 y.o. female. Procedure(s): ELECTROPHYSIOLOGY PROCEDURE Patient Active Problem List Diagnosis Date Noted ??? 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 Cardiomyopathy, ischemic 11/24/2023 ??? Ascending aorta dilatation 11/24/2023 ??? Hyperpiesia 11/24/2023 ??? ASCVD (arteriosclerotic cardiovascular disease) 10/30/2023 Past Medical History: Diagnosis Date ??? Hyperlipidemia ??? Hypertension No past surgical history on file. Social History Tobacco Use ??? Smoking status: Former ??? Smokeless tobacco: Never Substance Use Topics ??? Alcohol use: Not Currently Social History Substance and Sexual Activity Drug Use Never Allergies Allergen Reactions ??? Hydrocodone CIS - Nausea/Vomiting ??? Hydrocortisone CIS - swelling ??? Oxycodone-Acetaminophen CIS - Nausea/Vomiting ??? Prednisone swelling ??? Penicillins Itching Medications: MAR and/or home medications have been reviewed. Physical Exam: Preprocedure Vitals Current as of 04/30/24 0737 BP: 140/84 Pulse: 104 Resp: 20 SpO2: 98 Temp: 36.4 ??C (97.6 ??F) Height: 152.4 cm (5') (04/26/24) Weight: 68.6 kg (151 lb 3.2 oz) (04/30/24) BMI: 29.53 IBW: 45.5 kg (100 lb 4.9 oz) Last edited 04/30/24 0732 by BF Airway Assessment: Mallampati: II Cardiovascular Assessment: Rhythm: regular Rate: normal Pulmonary Assessment: unlabored breathing Dental Assessment: - normal exam Misc Assessment: IV access: Peripheral line Last Filed Perioperative Cognitive Screening None Anesthesia Plan: ASA 3 general, with a(n) intravenous induction 83 y.o.female (69 kg/BMI 30) h/o HTN, HL, tachy jey syndrome scheduled for SVT ablation +/- PPM placement. Patient denies significant GERD, recent URI symptoms and is appropriately NPO. TTE 10/2023 -The left ventricle is of normal size. [...] measuring 3.9 cm and 4.6 cm, respectively. Activity status: ADR: -- Hydrocodone -- CIS - Nausea/Vomiting -- Hydrocortisone -- CIS - swelling -- Oxycodone-Acetaminophen -- CIS - Nausea/Vomiting -- Prednisone -- swelling -- Penicillins -- Itching Recent Labs: Lab Results Component Value Date WBC 6.98 04/30/2024 WBC 8.3 11/03/2023 RBC 3.94 (L) 04/30/2024 RBC 3.77 (L) 11/03/2023 HGB 13.4 04/30/2024 HGB 13.1 11/03/2023 HCT 39.0 04/30/2024 HCT 38.0 11/03/2023 MCV 99.0 (H) 04/30/2024 MCV 100.8 (H) 11/03/2023 MCH 34.0 (H) 04/30/2024 MCH 34.7 (H) 11/03/2023 MCHC 34.4 04/30/2024 MCHC 34.5 11/03/2023 PLATELET 192 04/30/2024 PLATELET 181 11/03/2023 RDWCV 13.7 04/30/2024 RDWCV 14.6 (H) 11/03/2023 Lab Results Component Value Date/Time NA 139 04/30/2024 02:28 AM NA 139 11/03/2023 03:46 AM K 4.0 04/30/2024 02:28 AM K 4.0 11/03/2023 03:46 AM CL 106 04/30/2024 02:28 AM CL 108 (H) 11/03/2023 03:46 AM CO2 22 04/30/2024 02:28 AM CO2 19 (L) 11/03/2023 03:46 AM BUN 22 (H) 04/30/2024 02:28 AM BUN 13 11/03/2023 03:46 AM CREATININE 0.89 04/30/2024 02:28 AM CREATININE 0.83 11/03/2023 03:46 AM Anesthetic Hx: No prior issues Airway Hx: None avail Plan: GETA, PIV access. Confirmed periprocedural full code status The patient was informed of the risks, benefits and alternatives of anesthesia. These risks included, but were not limited to, prolonged intubation, post- operative nausea and/or vomiting, pain, sore throat, dental/lip trauma, and other rare but serious complications such as major organ damage, awareness, severe allergic reactions, position-related nerve injuries, and need blood transfusions. The patient accepts that additional procedures and/or escalation of care may be necessary as dictated bythe course of the procedure/anesthetic. All questions sought and answered. Consent was signed and placed in chart. Region - Other Informed Consent: Anesthetic plan and risks discussed with patient. Plan discussed with SOFTWARE QUALITY ASSURANCE SPECIALIST. Anesthesia Screening documented in this encounter Plan of Treatment Upcoming Encounters Date Type Department Care Team (Late st Contact Info) Description 08/07/2024 1:00 PM EST Office Visit Cardiology at [address] [place] [address] Izaiah Meyer MD [facility] [place] [address] 08/09/2024 10:00 AM EST Hospital Encounter Non-Invasive Cardiology Lab [facility] [place] [id number] Arrived documented as of this encounter Visit Diagnoses Not on filedocumented in this encounter Administered Medications Inactive Administered Medications - up to 3 most recent administrations Medication Order MAR Action Action Date Dose Rate Site acetaminophen (Ofirmev) (1,000 mg/100 mL) infusion Intravenous, Administer over 15 Minutes, PRN, Starting on Tue04/30/24 at 1343, Until Tue04/30/24 at 1421, Anesthesia Intra-op, Routine Given 04/30/2024 1:43 PM EST 1,000 mg ceFAZolin (Ancef) (100 mg/mL) injection solution Intravenous, PRN, Starting on Tue04/30/24 at 1207, Until Tue04/30/24 at 1421, Anesthesia Intra-op, Routine Given 04/30/2024 12:07 PM EST 2 g dexmedeTOMIDine (Precedex) (4 mcg/mL) bolus injection (Anesthsia) Intravenous, PRN, Starting on Tue04/30/24 at 1135, Until Tue04/30/24 at 1421, Anesthesia Intra-op, Routine Given 04/30/2024 11:35 AM EST 4 mcg dexmedeTOMIDine (Precedex) (4 mcg/mL) in sodium chloride 0.9% 50 mL infusion Intravenous, CONTINUOUS PRN, Starting on Tue04/30/24 at 1150, Until Tue04/30/24 at 1421, Anesthesia Intra-op Rate/Dose Change 04/30/2024 12:04 PM EST 0.2 mcg/kg/hr 3.43 mL/hr New Bag 04/30/2024 11:50 AM EST 0.1 mcg/kg/hr 1.715 mL/ hr fentaNYL (pf) (50 mcg/mL) multi-dose injection Intravenous, PRN, Starting on Tue04/30/24 at 0843, Until Tue04/30/24 at 1421, Anesthesia Intra-op, Routine Given 04/30/2024 10:36 AM EST 25 mcg Given 04/30/2024 10:24 AM EST 25 mcg Given 04/30/2024 9:24 AM EST 25 mcg lactated ringers infusion Intravenous, CONTINUOUS PRN, Starting on Tue04/30/24 at 0840, Until Tue04/30/24 at 1421, Anesthesia Intra-op New Bag 04/30/2024 8:40 AM EST ondansetron (pf) (Zofran) (2 mg/mL) injection Intravenous, PRN, Starting on Tue04/30/24 at 1331, Until Tue04/30/24 at 1421, Anesthesia Intra-op, Routine Given 04/30/2024 1:31 PM EST 4 mg PHENYLephrine (Christopher-Synephrine) (80 mcg/mL) in sodium chloride 0.9% 250 mL infusion Intravenous, CONTINUOUS PRN, Starting on Tue04/30/24 at 0852, Until Tue04/30/24 at 1421, Anesthesia Intra-op, Routine Rate/Dose Change 04/30/2024 1:47 PM EST 15 mcg/min 11.25 mL/hr Rate/Dose Change 04/30/2024 12:40 PM EST 30 mcg/min 22.5 m L/hr Rate/Dose Change 04/30/2024 11:59 AM EST 40 mcg/min 30 mL/ hr PHENYLephrine in NS (PF) (CHRISTOPHER-SYNEPHRINE) 0.8 mg/10 mL (80 mcg/mL) multi-dose injection Syringe Intravenous, PRN, Starting on Tue04/30/24 at 0852, Until Tue04/30/24 at 1421, Anesthesia Intra-op, Routine Given 04/30/2024 12:14 PM EST 40 mcg Given 04/30/2024 8:57 AM EST 40 mcg Given 04/30/2024 8:52 AM EST 40 mcg propofoL (Diprivan) (10 mg/mL) infusion Intravenous, CONTINUOUS PRN, Starting on Tue04/30/24 at 0843, Until Tue04/30/24 at 1421, Anesthesia Intra-op, Routine Rate/Dose Change 04/30/2024 1:46 PM EST 20 mcg/kg/min 6.564 mL/hr Rate/Dose Change 04/30/2024 1:39 PM EST 40 mcg/kg/min 13.1 28 mL/hr Rate/Dose Change 04/30/2024 12:55 PM EST 60 mcg/kg/min 19. 692 mL/hr documented in this encounter Care Teams Crane Operator Cab Relationship Specialty Start Date End Date Masood Pierson MD [address] [place] [address] PCP - General Family Medicine 11/24/23 documented as of this encounter
--- OUTSIDE RECORDS SUMMARY | 2024-07-25 15:43 | XMS_ITS | Encounter Summary ---
Author Organization [place] [address] Care Team Providers Care Fibre Technologist Name Role Phone Masood Pierson MD Primary Care Provider [phone] Reason for Visit * Reason Onset Date Comments Post Procedure Call 05/09/2024 Encounter Details Date Type Department Care Team (Late st Contact Info) Description 05/09/2024 Notes Only Cardiology at [address] [id number] Rhea Mercado, RN Post Procedure Call Social History Tobacco Use Types Packs/Day Years Used Date Smoking Tobacco: Former Smokeless Tobacco: Never Alcohol Use Standard Drinks/Week Comments Not Currently 0 (1 standard drink = 0.6 oz pur e alcohol) [facility] Utilities Answer Date Recorded In the past 12 months has th e [employer], gas, oil, or water [employer] threatened to shut off services in [...] in a long-term (including now)? No 11/01/2023 Housing Stability Vital Sign Answer Mukesh e Recorded In the last 12 months, was t here a time when you were not able to pay the mortgage or rent on time? No 04/27/2024 In the past 12 months, how m any times have you moved where you were living? 0 04/27/2024 At any time in the past [facility], were you homeless or living in a long-term (including now)? No 04/27/2024 IPV Inpatient Questions [...] as of this encounter Progress Notes * Rhea Mercado RN - 05/09/2024 7:33 AM ESTSummary: Post Procedure Call: SVT Ablation + Pacemaker Implant EP RN Post-Procedure Note: Date of Follow Up Call: 05/09/2024 Spoke With: Patient Procedure Type (choose all that apply): Ablation and Pacemaker Leadless Pacemaker: No Ablation Type (Choose all that apply): SVT Date of Procedure: 04/30/2024 Date of Discharge: 05/01/2024 Follow Up EP Visit Scheduled?: Yes Date of EP Visit: 06/04/2024 Intra or Post Procedure Event: Did any Intra or Post Procedure Events Occur?: No Medications at Hospital Discharge: Aspirin: Yes P2Y12 Inhibitor: Yes Other Antiplatelet: No Warfarin: No DOAC: No Other Anticoagulant: No Beta Rodrick (any): Yes Digoxin: No Diltiazem/Verapamil: No Amiodarone: No Dofetilide: No Dronedarone: No Flecainide: No Propafenone: No Sotalol: No PPI: No Other Antiarrhythmic: No Assessment: Access Site Assessment (Choose all that apply): None of the above Device Pocket Assessment (Choose all that apply): None of the above UTI symptoms (Choose all that apply): None of the above Signs and Symptoms of Infection (Choose all that apply): None of the above Headaches: No Complaints of: (choose all that apply): None of the above Free Text Note: Follow Up Instruction: Catheter Insertion Area Care - You may take a shower if you wish the morning after the procedure. Wash the area with soap and water. - Look for signs of infection over the next several days. - A little spot of blood at the catheter insertion area is not unusual. A bruise or a small lump under the skin is normal; they generally disappear in three or four days. In some cases you may develop a larger bruise that may appear to extend somewhat down your thigh; this is normal and will resolve, generally within 1-2 weeks. - Expect some mild tenderness over the area where the catheter was inserted. This should improve during the 24 to 48nhours after the procedure. - Take Tylenol if needed and contact your doctor if the discomfort worsens. Avoid higher-dose ibuprofen (greater than 400mg twice daily) due to increased bleeding risk while on blood thinners (does not include aspirin). Problems to Watch For If there is bright red blood flowing from the catheter insertion area STOP what you are doing and lie down. Hold pressure steadily on the area for fifteen minutes. Call for help. If the bleeding does not stop in fifteen minutes, call 911. If there is rapid swelling with a black and blue color at the catheter insertion area, there may be bleeding inside. Call your doctor if there is any increase in size. Check the insertion site for the next few days at home. Signs of infection are: Redness Swelling Yellow, white, green or brown, foul smelling drainage Increased soreness If you think there is an infection, take your temperature. Then call your doctor. The limb on the side where you had the catheter inserted should look and feel normal in its color, sensation and temperature. If your leg becomes cool, pale, blue or changing color with numbness and tingling, contact your doctor. If you feel faint or dizzy, lie down with your feet elevated. Have someone call the doctor. If you are alert, drink fluids. Activity - Do not bend over, strain or lift heavy objects for 48 hours after the procedure. - Do not participate in active sports for 1 week. - Avoid heavy lifting (greater than 10 pounds) for one week following your procedure. Additional discharge instructions: Pt advised to be vigilant for any of the following clinical findings (or anything else out of the ordinary): Bleeding, pain, or swelling at any sheath/catheter insertion site. Sometimes this may develop even days after discharge, and there may then be a need to examine this and alter the anticoagulation medications. It is good to be up and around after the ablation procedure, but heavy lifting and straingshould be avoided for the first 3-5 days. Chest discomfort. Inflammation in the form of pericarditis may result in chest pain, which is not uncommon after an ablation procedure for atrial fibrillation. It often may be position-dependent, or will be exacerbated by ventilatory movement. If the patient experiences chest discomfort, it should be medically evaluated to ascertain the significance, and to assess for more serious alternative considerations requiring urgent intervention. If it otherwise is pericarditis, it commonly responds well to anti-inflammatory medication. Atrial dysrhythmias (flutter, fibrillation, tachycardia). Post-procedure atrial dysrhythmias on thebasis of temporary inflammation are not uncommon, and are not necessarily indicative of an ineffective procedure... if the dysrhythmia is due to inflammtion, the dysrhythmias likely will cease as theinflammation resolves. The first 1-2 months are the most likely time during which this matter is rel evant. If the patient experiences dysrhythmias, the Cardiac Electrtophysiology Service should be contacted. Side effects of any new medications initiated at the [facility]. The patient should be aware and informed of any significant potential side effects that may be incurred as a result of being on new medication... Sudden weakness, sensory loss, altered behavior or speech. This might be a consequence of a cerbrovascular event (stroke or TIA). This requires urgent and immediate medical attention. Fever or sweats, significant malaise. Possibly a consequence of infection. This requires that the Cardiac Electrophysiology Service be contacted, or otherwise an urgent medical assessment should be obtained. Shortness of breath, increased exertional intolerance. A variety of pulmonary or cardiac processes could be responsible for this. This requires that the Cardiac Electrophysiology Service be contacted, or otherwise an urgent medical assessment should be obtained. Difficulty swallowing, or pain with swallowing. While remote, there nonetheless is a ablation procedural risk of injury to the esophagus; if these symptoms emerge, immediate medical evaluation is urged (with no oral intake pending medical evaluation). This is not an exhaustive list. If the patient experiences anything out of the ordinary post-procedure, he/she is encouraged to contact his/her physician or the Cardiac Electrophysiology Service ([phone]). Wound Care: -Wound will heal in approx 7-10 days.It may be tender, it may appear slightly red and bumpy and there may -be dry, crusty scabbing. These are all normal. -Inspect the wound for signs of infection which can be drainage, swelling, warmth or increased painor redness. - Do not scratch or rub the wound or apply any creams, lotions or ointments on the wound until it is completely healed. - You may cover the wound with gauze if it rubs on clothing and causes you discomfort. - Avoid direct water pressure on the wound - continue this for 7 - 10 days. Do not submerge wound for 14 days - Do not scrub or wash would if Dermabond is used - You may remove your dressing on: Tuesday, May 05 Arm Restrictions: - Do not raise your elbow on the operated side above the shoulder for 6 weeks - Do not lift greater than 7 pounds (equal to a gallon of milk) on the operated side for 6 weeks. - Do not fully extend this arm in any direction away from the torso for 6 weeks - You may use your arm on the operated side, but do not make extreme movement (such as stretching or reaching for a heavy object) for 6 weeks - No driving for maximum of 1 week documented in this encounter Plan of Treatment Upcoming Encounters Date Type Department Care Team (Selwyn vizcarra Contact Info) Description 08/07/2024 1:00 PM EST Office Visit Cardiology at [address] [place] [address] Izaiah Meyer MD [facility] [place] [address] 08/09/2024 10:00 AM EST Hospital Encounter Non[place] [address] Arrived documented as of this encounter Visit Diagnoses Not on filedocumented in this encounter Care Teams Fibre Technologist Relationship Specialty Start Date End Date Masood Pierson MD [address] [place] [address] PCP - General Family Medicine 11/24/23 documented as of this encounter
--- OUTSIDE RECORDS SUMMARY | 2024-07-25 15:43 | XMS_ITS | Encounter Summary ---
Author Organization [facility] Address [facility] [place] [address] Care Team Providers Care Banana Room Cutter Name Role Phone Masood Pierson MD Primary Care Provider [phone] Encounter Details Date Type Department Care Team (Late st Contact Info) Description 02/27/2024 Telephone Cardiology at [address] [phone] Izaiah Meyer MD [facility] [place] [address] Social History Tobacco Use Types Packs/Day Years Used Date Smoking Tobacco: Former Smokeless Tobacco: Never Alcohol Use Standard Drinks/Week Comments Not Currently 0 (1 standard drink = 0.6 oz pur e alcohol) [facility] Utilities Answer Date Recorded [...] 3:30 PM EDT Lyla was seen at [facility] this past Tuesday for chest pain and returned to the ED Tuesday for back pain.Per patient both times it was determined she was having no cardiac issues but she was told to let her stem lead former know. At present she is not having [...] 1:00 PM EST Office Visit Cardiology at [address] [place] [address] Izaiah Meyer MD [facility] [place] [address] 08/09/2024 10:00 AM EST Hospital Encounter Non-Invasive Cardiology Lab [facility] [place] [phone] Arrived documented as of this encounter Visit Diagnoses Not on filedocumented in this encounter Care Teams Banana Room Cutter Relationship Specialty Start Date End Date Masood Pierson MD [address] [place] [address] PCP - General Family Medicine 11/24/23 documented as of this encounter
--- OUTSIDE RECORDS SUMMARY | 2024-07-25 15:43 | XMS_ITS | Clinical Summary ---
Author Organization [facility] [place] [address] Care Team Providers Care Corporate Quality Manager Name Role Phone Masood Pierson MD Primary Care Provider [phone] Allergies Active Allergy Reactions Criticality Noted Date Comments Hydrocodone CIS - Nausea/Vomiting Hydrocortisone CIS - swelling Oxycodone-Acetaminophen CIS - Nausea/Vomiting Penicillins Itching Low 10/30/2023 Prednisone 11/24/2023 swelling Medications Medication Sig Dispensed Refills Start Date End Date Status ASCORBIC ACID (VITAMIN C ORAL) 01/30/2008 Active CYANOCOBALAMIN, VITAMIN B-12, (VITAMIN B-12 ORAL) Take 1 capsule by mouth daily. 01/30/2008 Active CALCIUM ORAL Take 1 capsule by mouth daily. 01/30/2008 Active aspirin EC 81 mg EC [...] mouth daily. 90 tablet 3 11/04/2023 Active acetaminophen (Tylenol) 325 mg tablet Take 3 tablets by mouth every 6 hours as needed. 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 SN# [id number] - Atrial Lead: [employer] 7841-52. SN# [id number] - RV Lead: [employer] 7842-59. SN# [id number] Assessment & Plan (06/04/2024 4:31 PM EST): Well functioning device. No arrhythmias detected. However, she may have some degree of irritability (from inflammation) versus her own HR. Regardless, she is without symptoms, and until an arrhythmic cause of these is noted, advancing AVNB would only provide her symptoms - Pacer check in ~ 2 months for initial programming Cardiomyopathy, ischemic 11/24/2023 Overview (11/24/2023): 10/2023 (at time of NSTE-ACS): EF 64%, basal inferior HK. No VHD Assessment & Plan (06/04/2024 4:30 PM EST): No failure by history nor exam. - Diuresis: none - Cardioprotection: as directed for HTN Assessment & Plan (03/28/2024 11:47 AM EDT): [...] 3.5 x 15 Andrea 3.5 x 15 [place] RCA Mid AoCTO. Collats from Cx 4.0 x 38 [place] NB: RCA initially intervened; Cx 2 days later Assessment & Plan (06/04/2024 4:29 PM EST): No angina per history. - Anti-Thrombosis: asa 81, plavix 75. The latter through 10/2024 - Anti- Lipemic: lipitor 80 - Anti- Anginals: GTN PRN, toprol 12.5 Assessment & Plan (03/29/2024 11:41 AM EDT): [...] - Anti- Anginals: GTN PRN, toprol 12.5 Resolved Problems Problem Noted Date Diagnosed Date Resolved Date Pacemaker - [employer] 05/01/2024 06/04/2024 Encounters Date Type Department Care Team Description 06/04/2024 3:20 PM EST Office Visit Cardiology at [address] [phone] Izaiah Meyer MD Tachy-beatrice syndrome; ASCVD (arteriosclerotic cardiovascular disease); Cardiomyopathy, ischemic 06/04/2024 Travel 05/29/2024 Telephone Cardiology at [address] [phone] Izaiah Meyer MD Tachycardia 05/09/2024 Notes Only Cardiology at [place] [phone] Rhea Mercado RN Post Procedure Call 04/30/2024 8:32 AM EST Anesthesia Event [place] [address] Jose Pleitez MD Hartmann, Patrick R, MD 04/30/2024 7:35 AM EST - 04/30/2024 12:05 PM EST Surgery Electrophysiology Lab at [place] [phone] Dre Powers MD ELECTROPHYSIOLOGY PROCEDURE 04/26/2024 10:42 PM EST - 05/01/2024 3:48 PM EST Hospital Encounter Heart and Vascular Unit Level 4 [place] [address] Jammie Finnegan MD Ruiz, MD Suzy Vincent Nayana, MD Vinod, MD Lillie Tachy-beatrice syndrome Discharge Disposition: Home with VNA 04/26/2024 Telephone Cardiology at [address] [phone] Dre Dumont PA from Last 3 Months Immunizations Name Administration Dates Next Due Influenza Adjuvanted (FluAd) Trivalent, PF 65yrs + 05/01/2024 Social History Tobacco Use Types Packs/Day Years Used Date Smoking Tobacco: Former Smokeless Tobacco: Never Alcohol Use Standard Drinks/Week Comments Not Currently 0 (1 standard drink = 0.6 oz pur e alcohol) [facility] Utilities Answer Date Recorded In [...] in a intermediate (including now)? No 11/01/2023 Housing Stability Vital Sign Answer Mukesh e Recorded In the last 12 months, was t here a time when you were not able to pay the mortgage or rent on time? No 04/27/2024 In the past 12 months, how m any times have you moved where you were living? 0 04/27/2024 At any time in the past 12 m [facility], were you homeless or living in a intermediate (including now)? No 04/27/2024 IPV Inpatient Questions [...] Sign Reading Time Taken Comments Blood Pressure 123/73 06/04/2024 3:22 PM EST Pulse 60 06/04/2024 3:22 PM EST Temperature 36.6 ??C (97.9 ??F) 05/01/2024 11:[address] Respiratory Rate 18 05/01/2024 7:15 AM EST Oxygen Saturation 98% 05/01/2024 11:44 AM EST Inhaled Oxygen Concentration - - Weight 71.2 kg (157 lb) 06/04/2024 3:22 PM EST Height 152.4 cm (5') 06/04/2024 3:22 PM EST Body Mass Index 30.66 06/04/2024 3:22 PM EST Plan of Treatment Upcoming Encounters Date Type Department Care Team (Late st Contact Info) Description 08/07/2024 1:00 PM EST Office Visit Cardiology at [address] [place] [address] Izaiah Meyer MD [facility] [place] [address] 08/09/2024 10:00 AM EST Hospital Encounter Non-Invasive [place] [phone] Arrived Health Maintenance Due Date Last Done Comments Pneumoccocal Vaccine: 50+ (1 of 2 - PCV) 1958 Tetanus/Diphtheria/Pertussis Vaccines (1 - Tdap) 08/12 Zoster vaccine (1 of 2) 1989 Bone Density Scan 2004 RSV Vaccine (1 - 1-dose 75+ series) 2014 Covid-19 Vaccine (1 - season) 2024 Influenza (Flu) vaccine Completed 05/01/2024 Medical Devices Implanted Type Area Enterprise Resource Planning Consultant Device Identifier Shelf Expiration Date Model / Serial / Lot Bsx Ra Lead-04/30/20 Implanted:04/2024 by Dre Powers MD (Quantity not on file) Lead Heart [employer] [id number] / [id number] / Bsx Rv Lead-04/30/20 Implanted:04/2024 by Dre Powers MD (Quantity not on file) Lead Heart [employer] [id number] / [id number] / Bsx Accolade-04/20 Implanted:04/2024 by Dre Powers MD (Quantity not on file) Pacemaker Chest Wall [employer] [id number] / [id number] / Procedures Procedure Name Priority Date/Time Associated Diagnosis Comments CARDIAC DEVICE CHECK - REMOTE Routine 06/11/2024 6:02 AM EST SCAN DOC: TELEMETRY STRIPS 05/01/2024 7:36 AM EST XR CHEST PA AND LATERAL Routine 05/01/20 6:03 AM EST CBC (WITH DIFF) Routine 05/01/2024 2:17 AM EST BASIC METABOLIC PANEL Routine 05/01/2024 2:17 AM EST MAGNESIUM Routine 05/01/2024 2:17 AM EST SCAN DOC: TELEMETRY STRIPS 05/01/2024 1:32 AM EST SCAN DOC: TELEMETRY STRIPS 05/01/2024 1:32 AM EST SCAN DOC: TELEMETRY STRIPS 04/30/2024 8:18 PM EST SCAN DOC: TELEMETRY STRIPS 04/30/2024 5:07 PM EST SCAN DOC: TELEMETRY STRIPS 04/30/2024 2:18 PM EST ELECTROPHYSIOLOGY PROCEDURE Routine 04/30/2024 12:01 PM EST SCAN DOC: TELEMETRY STRIPS 04/30/2024 7:53 AM EST CBC (WITH DIFF) Routine 04/30/2024 2:28 AM EST BASIC METABOLIC PANEL Routine 04/30/2024 2:28 AM EST MAGNESIUM Routine 04/30/2024 2:28 AM EST SCAN DOC: TELEMETRY STRIPS 04/29/2024 11:39 PM EST SCAN DOC: TELEMETRY STRIPS 04/29/2024 8:46 PM EST SCAN DOC: TELEMETRY STRIPS 04/29/2024 8:23 AM EST SCAN DOC: TELEMETRY STRIPS 04/29/2024 8:23 AM EST SCAN DOC: TELEMETRY STRIPS 04/29/2024 7:45 AM EST CBC (WITH DIFF) Routine 04/29/2024 2:01 AM EST BASIC METABOLIC PANEL Routine 04/29/2024 2:01 AM EST MAGNESIUM Routine 04/29/2024 2:01 AM EST SCAN DOC: TELEMETRY STRIPS 04/28/2024 9:39 PM EST SCAN DOC: TELEMETRY STRIPS 04/28/2024 8:38 PM EST EKG 12-LEAD STAT 04/28/2024 2:27 PM EST Tachy-beatrice syndrome EKG 12-LEAD Routine 04/28/2024 2:26 PM EST Tachy-beatrice syndrome SCAN DOC: TELEMETRY STRIPS 04/28/2024 8:47 AM EST SCAN DOC: TELEMETRY STRIPS 04/28/2024 8:03 AM EST CBC (WITH DIFF) Routine 04/28/2024 3:32 AM EST BASIC METABOLIC PANEL Routine 04/28/2024 3:32 AM EST MAGNESIUM Routine 04/28/2024 3:32 AM EST SCAN DOC: TELEMETRY STRIPS 04/27/2024 7:25 PM EST EKG 12-LEAD STAT 04/27/2024 6:45 PM EST Tachy-beatrice syndrome SCAN DOC: TELEMETRY STRIPS 04/27/2024 2:14 PM EST SCAN DOC: TELEMETRY STRIPS 04/27/2024 2:14 PM EST SCAN DOC: TELEMETRY STRIPS 04/27/2024 7:57 AM EST SCAN DOC: TELEMETRY STRIPS 04/27/2024 7:47 AM EST RAPID INFLUENZA A/B AND RSV PCR ([facility]/CGP/APD/NLH) STAT 04/27/2024 4:28 AM EST MAGNESIUM STAT Add-On 04/27/2024 3:12 AM EST BASIC METABOLIC PANEL STAT 04/27/2024 3:12 AM EST CBC (WITH DIFF) STAT 04/27/2024 3:12 AM EST TROPONIN - SINGLE STAT 04/27/2024 3:1 2 AM EST PROTHROMBIN TIME STAT 04/27/2024 3:12 AM EST TSH STAT 04/27/2024 3:12 AM EST URINALYSIS WITH REFLEX CULTURE STAT 04/27/2024 12:06 AM EST SCAN DOC: TELEMETRY STRIPS 04/26/2024 11:15 PM EST EKG 12-LEAD Routine 04/26/2024 11:01 PM EST Tachy-beatrice syndrome from Last 3 Months Results * Cardiac Device Check - Remote (06/11/2024 6:02 AM EST) Anatomical Region Laterality Modality Other 06/11/2024 6:02 AM EST David Bryan MD IMPLANTABLE CARDIAC DEVICE * Scan Doc: Telemetry Strips (05/01/2024 7:36 AM EST) Only the most recent of22 resultswithin the time period is included. Narrative 05/01/2024 7:36 AM EST Ordered by an unspecified provider. Scanning Provider MEDIA MGR SCAN EXT O RDR/RSLT * XR Chest PA & Lateral (Generic) (05/01/2024 6:03 AM EST) [employer] WORKSTATION ID [id number] RAD Anatomical Region Laterality Modality Chest N/A Digital Radiogra phy Impressions 05/01/2024 1:20 PM EST Dual-chamber pacer leads in expected position. No pneumothorax. I have personally reviewed the image(s) and the resident's interpretation and agree with the findings, Wilson Hester MD at 05/01/2024 1:20 PM Thank you for letting us participate in the care of this patient. ??If you are a health care provider and have any questions regarding this report, please contact the number below. ??For patients who have questions please contact the health memory care program resident that requested your imaging first. ? Narrative 05/01/2024 1:20 PM EST EXAMINATION: XR CHEST PA AND LATERAL (GENERIC) CLINICAL HISTORY: s/p device implant TECHNIQUE: PA and lateral views of the chest COMPARISON: 10/30/2023 FINDINGS: Stable cardiomediastinal silhouette. There are low lung volumes. No pleural effusion. No pneumothorax. Interval placement of dual chamber pacer leads terminating in the right atrium and right ventricle. Procedure Note Wilson Hester MD - 05/01/2024 EXAMINATION: XR CHEST PA AND LATERAL (GENERIC) CLINICAL HISTORY: s/p device implant TECHNIQUE: PA and lateral views of the chest COMPARISON: 10/30/2023 FINDINGS: Stable cardiomediastinal silhouette. There are low lung volumes. No pleural effusion. No pneumothorax. Interval placement of dual chamber pacer leads terminating in the rightatrium and right ventricle. IMPRESSION Dual-chamber pacer leads in expected position. No pneumothorax. I have personally reviewed the image(s) and the resident's interpretationand agree with the findings, Wilson Hester MD at 05/01/2024 1:20 PM Thank you for letting us participate in the care of this patient. If youare a health care provider and have any questions regarding this report,please contact the number below. For patients who have questions please contactthe health memory care program resident that requested your imaging first. Marissa Almonte MD IMG DX ORDERABLES * (ABNORMAL) CBC (with Diff) (05/01/2024 2:17 AM EST) Only the most recent of5 resultswithin the time period is included. White Blood Cell 9.17 4.00 - 9.50 x10(3)/mc L 05/01/2024 2:[address] [facility] Red Blood Cell 4.04 4.00 - 5.21 x10(6)/mc L 05/01/2024 2:36 AM [facility] Hemoglobin 13.6 11.7 - 15.5 g/dL 05/01/2024 2:36 AM [facility] Hematocrit 40.8 35.7 - 45.8 % 05/01/2024 2:36 AM [facility] Mean Cell Volume 101.0(H) 82.6 - 94.4 fL 05/01/2024 2:36 AM [facility] Mean Cell Hemoglobin 33.7(H) 27.1 - 32.0 pg 05/01/2024 2:36 AM [facility] Mean Cell Hemoglobin Concentration 33.3 31.7 - 35.0 g/dL 05/01/2024 2:36 AM [facility] Platelet 180 145 - 357 x10(3)/mc L 05/01/2024 2:36 AM [facility] Mean Platelet Volume 11.0 7.6 - 12.9 fL 05/01/2024 2:36 AM [facility] RDW Standard Deviation 52.7(H) 37.0 - 46.0 fL 05/01/2024 2:36 AM [facility] RDW coefficient of variation 14.0 11.5 - 14.1 % 05/01/2024 2:36 AM [facility] NRBC% auto 0.0 % 05/01/2024 2:36 AM [facility] NRBC Absolute <0.01 <0.01 x10(3)/mc L 05/01/2024 2:36 AM [facility] Neutrophil % 68.2 % 05/01/2024 2:36 AM [facility] Neutrophil Absolute (ANC) - Automated 6.25(H) 1.70 - 6.10 x10(3)/mc L 05/01/2024 2:36 AM [facility] Lymph % 14.1 % 05/01/2024 2:36 AM [facility] Lymph Absolute 1.29 0.90 - 3.20 x10(3)/mc L 05/01/2024 2:[address] [facility] Monocyte % 13.6 % 05/01/2024 2:36 AM [facility] Monocyte Absolute 1.25(H) 0.30 - 0.90 x10(3)/mc L 05/01/2024 2:[address] [facility] Eos % 3.4 % 05/01/2024 2:36 AM [facility] Eos Absolute 0.31 0.00 - 0.40 x10(3)/mc L 05/01/2024 2:[address] [facility] Basophil % 0.4 % 05/01/2024 2:36 AM [facility] Baso Absolute 0.04 0.00 - 0.10 x10(3)/mc L 05/01/2024 2:36 AM [facility] Immature Gran % 0.3 % 2:36 AM [facility] Immature Gran Absolute <0.04 0.00 - 0.04 x10(3)/mc L 05/01/2024 2:36 AM [facility] Blood VENOUS BLOOD SPECIMEN / Unknown Venipuncture / Unknown 05/01/2024 2:17 AM EST 05/01/2024 2:31 AM EST Marissa Almonte MD HEMATOLOGY ORDERAB LES [facility] [place] [address] * Magnesium (05/01/2024 2:17 AM EST) Only the most recent of5 resultswithin the time period is included. Magnesium 0.91 0.69 - 1.07 mMol/L 05/01/2024 3:00 AM [facility] Blood VENOUS BLOOD SPECIMEN / Unknown Venipuncture / Unknown 05/01/2024 2:17 AM EST 05/01/2024 2:30 AM EST Marissa Almonte MD CHEMISTRY ORDERABL ES [facility] [place] [address] * Basic Metabolic Panel (05/01/2024 2:17 AM EST) Only the most recent of5 resultswithin the time period is included. Glucose 132 65 - 199 mg/dL 05/01/2024 3:00 AM [facility] Comment:Glucose Concentratio n >=200 mg/dL plus symptoms is consistent with Diabetes Mellitus. Blood Urea Nitrogen 17 8 - 18 mg/dL 05/01/2024 3:00 AM [facility] Creatinine 0.92 0.70 - 1.20 mg/dL 05/01/2024 3:00 AM [facility] Sodium 140 135 - 145 mMol/L 05/01/2024 3:00 AM [facility] Potassium 4.2 3.5 - 5.0 mMol/L 05/01/2024 3:00 AM [facility] Chloride 106 98 - 107 mMol/L 05/01/2024 3:00 AM [facility] Carbon Dioxide 23 22 - 31 mMol/L 05/01/2024 3:00 AM [facility] Anion Gap 11 5 - 15 mMol/L 05/01/2024 3:00 AM [facility] Calcium 8.6 8.5 - 10.5 mg/dL 05/01/2024 3:00 AM [facility] Est Glomerular Filtration Rate - Female 62 mL/min/1. 73 m?? 05/01/2024 3:00 AM [facility] Comment: This patient's estimated [...] urine creatinine clearance. Assignment of CKD stage 1 - 5 for patients with an eGFR near the transition point between stages may be based on clinical assessment of muscle mass and symptoms in addition to eGFR. Link: eGFR Calculator [employer] Blood VENOUS BLOOD SPECIMEN / Unknown Venipuncture / Unknown 05/01/2024 2:17 AM EST 05/01/2024 2:30 AM EST Marissa Amlonte [place] [address] * ELECTROPHYSIOLOGY PROCEDURE (04/30/2024 12:01 PM EST) Anatomical Region Laterality Modality Other Narrative 05/01/2024 8:43 AM EST Table formatting from the original result was not included. Images from the original result were not included. 04/30/2024 Procedures Performed: Comprehensive Electrophysiology Evaluation with 3D electroanatomic mapping of the Right Atrium Ablation of Supraventricular Tachycardia (Right Atrial Tachycardia) Dual Chamber Pacemaker Implantation Indication: Lyla Goodrich is a 83 y.o. 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 presents with fatigue for the past few months who was found to have SVT with baseline sinus rates in the 60's. If we are unable to convincingly eradicate her SVT then we would implant a pacemaker for tachy-beatrice syndrome. Referring Physicians: JAMIME FINNEGAN XAVIER L RAMACHANDRA, NAYANA Operators: Dre Powers MD PhD (Attending) Fellow: Izaiah King MD Procedure: The patient was brought to the Electrophysiology Laboratory in the fasting sedated state. Continuous electrocardiographic monitoring was instituted. The right and left groins were prepared and draped in the usual sterile fashion and 2% lidocaine with 0.5% bupivicaine in a 2:3 mixture was instilled for local anesthesia. Venous access was obtained using the modified Seldinger technique, guided by ultrasonography. Catheters were positioned utilizing with 'min fluoro' technique utilizing NAVX mapping system with impedance mapping. Sheath Catheter Insertion site Site 8-Fr short ??4-Fr CRD quadripolar catheter Right femoral vein High right atrium 5-Fr short 4-Fr CRD-2 quadripolar catheter Right femoral vein His bundle area 5-Fr short 4-Fr CRD quadripolar catheter Left femoral vein Right ventricle 7-Fr long 6-Fr Decapolar Inquiry ??Left femoral vein Coronary sinus ?? The baseline rhythm was sinus bradycardia at 1250 ms. Conduction Intervals (ms) Parameters Values Intervals ?? Cycle length 1250 ??ms MO 248 ??ms QRS 107 ??ms QT 465 ??ms QTc 465 ??ms AH 147 ??ms HV 56 ??ms Findings: With ventricular pacing, there was one-to-one decremental VA conduction with concentric atrial activation. With ventricular extrastimuli, a VA jump was observed between S2 cycle length of 580 to 570. Tachycardia was easily inducible and was often spontaneous at a cycle length of about 570 ms with some variability. Although at times there may have been multiple tachycardia mechanisms, the predominant tachycardia was activated first from the high right atrial catheter and activated proximal to distal on the coronary sinus catheter. ?? The VA time was about 300 ms. ?? The tachycardia terminated with a ventricular signal. All of the above are consistent with a predominantly unifocal atrial tachycardia The tachycardia was mapped to the high right atrium adjacent to the SVC/RA junction. ??Initially the earliest activation was on the posterior oral medial aspect of the SVC/RA junction. ??The activation was quite focal with densely fractionated signals observed on the mapping and ablation catheters. We used a 4 mm nonirrigated ablation catheter ([employer]) for further localization mapping. ??Stability was a challenge and required a small curl steerable Agilis long sheath. Ablation was carried out initially at 25 W but increasing to 30 W over up to 30 seconds per lesion. ??With ablation, tachycardia continue to start and stop more or less spontaneously. ??However the previously noted fractionated signals had attenuated considerably. ??Tachycardia remained inducible. After further mapping, a second possible tachycardia focus was localized on the anterior aspect of the SVC/RA junction. ??With some difficulty, ??an adequate RF lesion was delivered here. ??We were unable to bracket this lesion due to issues with stability. After this last lesion, the tachycardia was more difficult to induce and the cycle length increased to about 590 ms. ??The tachycardia also terminated more quickly. Sinus node function was evaluated but incompletely assessed due to frequent atrial tachycardia. ??However, the delay between a paced drivetrain at 700 ms and a subsequent for sinus beat was prolonged. Images Activation map of the right atrium during tachycardia including ablation lesion set delivered to the posterior medial focus of atrial tachycardia at the SVC/RA junction As above, showing the anterior/lateral secondary atrial tachycardia focus Activation map without RF ablation spheres to show sites of earliest activation both posteriorly and anteriorly. The patient tolerated the ablation procedure well. ??At this point, her family was informed in the room was turned over anticipation for dual-chamber pacemaker placement Dual Chamber Pacemaker Implantion IV antibiotics were administered. The implant site was then prepped and draped in the usual sterile fashion. ??The axillary vein was localized under ultrasound in the long axis and a 4 Israeli micropuncture needle was used to access the vein x 1. ??Sharp and blunt dissection was used down to the level of the pectoralis major fascia. ??The guidewire was then pulled through the skin. ??Hemostasis was maintained with electrocautery. . Utilizing a retained wire technique, a second guide wire was placed in the central venous circulation. ??A 6 Fr peel away sheath was advanced over one guide wire into the subclavian vein. A pacemaker lead was then advanced under fluoroscopic guidance and positioned in the right ventricle where a stable position with adequate sensing and pacing characteristics was obtained. ??The patient's anatomy was challenging. ??The course of the central venous circulation down to the right atrium was tortuous with a sharp angle at the junction of the innominate and superior vena cava. ?? Furthermore, the patient's heart appeared to be leftward rotated which skewed the traditional views that we might expect for lead positioning and left and right anterior oblique projections. ??After several deployments, the RV lead was successfully delivered into the mid to apical septum. The 6Fr sheath was split and a new 6Fr sheath was advanced over the retained guidewire into the subclavian vein. Following this, a permanent pacing lead was advanced under fluoroscopic guidance and positioned in the right atrium where a stable position with adequate sensing and pacing characteristics was obtained. ??Atrial lead positioning was also made more challenging by the patient's unusual anatomy as above. After checking for slack in both leads, both leads were anchored to the pre-pectoralis fascia using 0 silk non-absorbable suture. A pacemaker pocket was now fashioned using blunt dissection. The pocket was flushed with antibiotic solution. The generator was connected to the leads, tested and found to be functioning satisfactorily. The generator was implanted in the pocket, and the pocket closed in layers using 2-0 interrupted, 2-0 continuous Vicryl, and 4-0 continuous Monocryl absorbable sutures. The incision was covered with Dermabond and the wound cover with a Mepilex dressing The patient remained hemodynamically stable, tolerated the procedure well and was transferred in stable condition. Dr. Powers was present for and participated in the entire procedure. 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 I was present for and directly participated as briquetter operator in all herman aspects of these procedures. Dre Powers MD, PhD, [facility] Cardiac Electrophysiology Dre Powers MD EP PROCEDURE ORDERAB LES * EKG 12 Lead (04/28/2024 2:27 PM EST) Only the most recent of3 resultswithin the time period is included. Ventricular rate 125 BPM MUSE SYSTEM Atrial Rate 129 BPM MUSE SYSTEM P-R Interval 256 ms MUSE SYSTEM QRS Duration 84 ms MUSE SYSTEM Q-T Interval 354 ms MUSE SYSTEM QTC Calculated (Bezet) 510 ms MUSE SYSTEM Calculated P [place] -4 degrees MUSE SYSTEM Calculated R [place] -48 degrees MUSE SYSTEM Calculated T [place] 40 degrees MUSE SYSTEM INTERPRETATION Sinus tachycardia with 1st degree A-V block with Premature atrial complexes Left axis deviation Moderate voltage criteria for LVH, may be normal variant ( R in aVL , Ifeanyi product ) Inferior infarct , age undetermined Anterolateral infarct , age undetermined Abnormal ECG When compared with ECG of 27-APR-2024 18:45, Premature atrial complexes are now Present Vent. rate has increased BY ??50 BPM Anterolateral infarct is now Present Confirmed by Butch Soto MD ([id number]) on 04/30/2024 9:59:46 PM MUSE SYSTEM 04/28/2024 2:27 PM EST 04/30/2024 9:59 PM EST Izaiah Monroe MD ECG ORDERABLES MUSE SYSTEM * Rapid Influenza A/B and RSV PCR ([facility]/CGP/APD/NL) (04/27/2024 4:28 AM EST) Influenza A PCR Not Detected Not Detected 04/27/2024 6:[address] [facility] Influenza B PCR Not Detected Not Detected 04/27/2024 6:[address] [facility] RSV PCR Not Detected Not Detected 04/27/2024 6:[address] [facility] Swab SPECIMEN FROM NASOPHARYNGEAL STRUCTURE / Unknown Non Blood Collection / Unknown 04/27/2024 4:28 AM EST 04/27/2024 4:40 AM EST Izaiah Monroe MD MICROBIOLOGY - GENER AL ORDERABLES [facility] [place] [address] * Troponin - Single (04/27/2024 3:12 AM EST) Pathologist [facility] Troponin-T, High Sensitivity 14 <=14 ng/L 04/27/2024 4:[address] [facility] Comment: This patient's troponin T concentration was determined using the Sully 5th Generation troponin T assay. According to the fourth universal definition of [...] viable myocardium or new regional wall motion ?? abnormality in a pattern consistent with an ischemic etiology; - Identification of a coronary thrombus by angiography or autopsy (not for type 2 or 3 ?? MIs) Serial measurement of troponin and the change in troponin concentration over time (delta) is crucial for the diagnosis of acute myocardial infarction. Guidance on the interpretation of the new 5th Generation Troponin T values and the delta troponin value can be found in the [facility] Test Catalog Troponin - [email or web address]/[email or web address]/files/[email or web address] Reference: Fourth Faison Definition of Myocardial Infarction. Journal of the [place] [employer] 2018;72:9405-3182 Blood VENOUS BLOOD SPECIMEN / Unknown Venipuncture / Unknown 04/27/2024 3:12 AM EST 04/27/2024 3:25 AM EST Izaiah Monroe MD CHEMISTRY ORDERABLES [facility] [place] [address] * Prothrombin Time (04/27/2024 3:12 AM EST) Pathologist [facility] Prothrombin Time 11.3 9.4 - 12.5 sec 04/27/2024 3:[address] [facility] International Normalization Ratio 1.0 <=4.9 04/27/2024 3:[address] [facility] Comment: An INR < 2.0 indicates adequate procoagulant activity for hemostasis in most patients without underlying bleeding disorders, though the INR may not adequately reflect hemostatic capacity in patients with liver disease and synthetic impairment. The recommended target INR range for therapeutic anticoagulation is 2.0 - 3.0 for most applications, though lower and higher ranges may be appropriate depending on clinical circumstances. Blood VENOUS BLOOD SPECIMEN / Unknown Venipuncture / Unknown 04/27/2024 3:12 AM EST 04/27/2024 3:25 AM EST Izaiah Monroe MD HEMATOLOGY ORDERABLE S Performing Organization Address [facility] Co de Phone Number [facility] [place] [address] * TSH (04/27/2024 3:12 AM EST) Thyroid Stimulating Hormone 2.99 0.27 - 4.20 mcIU/mL 04/27/2024 4:[address] [facility] Comment: Reference Interval (mcIU/mL): ?? Females: ? First Trimester: 0.23-3.88 ? Second Trimester: 0.22-3.90 ? Third Trimester: 0.44-4.66 Blood VENOUS BLOOD SPECIMEN / Unknown Venipuncture / Unknown 04/27/2024 3:12 AM EST 04/27/2024 3:25 AM EST Izaiah Monroe MD CHEMISTRY ORDERABLES Performing Organization Address [facility] Co de Phone Number [facility] [place] [address] * Urinalysis with reflex Culture (04/27/2024 12:06 AM EST) Glucose, Urine Dipstick Negative Negative 04/27/2024 12:[address] [facility] Protein, Urine Dipstick Negative Negative 04/27/2024 12:[address] [facility] Bilirubin, Urine Dipstick Negative Negative 04/27/2024 12:[address] [facility] Comment:Clinical correlation required for positive Urine Bilirubin results as false positive may occur with some drugs and drug related products. If a false positive is suspected a serum total bilirubin should be considered if clinically indicated. Urobilinogen, Urine Dipstick Normal Normal, 0.2 mg/dL, 1.0 mg/dL 04/27/2024 12:25 AM [facility] pH, Urine (dipstick) 6.5 5.0 - 8.0 04/27/2024 12:25 AM [facility] Blood, Urine Dipstick Negative Negative 04/27/2024 12:25 AM [facility] Ketone, Urine Dipstick Negative Negative 04/27/2024 12:25 AM [facility] Nitrite, Urine Dipstick Negative Negative 04/27/2024 12:25 AM [facility] Leukocytes, Urine Dipstick Negative Negative 04/27/2024 12:25 AM [facility] Specific [place] Urine Automated 1.010 1.005 - 1.030 04/27/2024 12:25 AM [facility] Appearance, Urine Dipstick Clear Clear 04/27/2024 12:25 AM [facility] Color, Urine Dipstick Yellow Yellow, Dark Yellow 04/27/2024 12:25 AM [facility] CULTURE ADDED? 04/27/2024 12:25 AM [facility] Urine URINE SPECIMEN OBTAINED BY CLEAN CATCH PROCEDURE / Unknown Non Blood Collection / Unknown 04/27/2024 12:06 AM EST 04/27/2024 12:16 AM EST Izaiah Monroe MD URINE ORDERABLES [facility] [place] [address] from Last 3 Months Advance Directives Documents on File Type Date Recorded Patient Construction Supervisor Tayla anation Personal Construction Supervisor 05/21/2024 2:58 PM janet garcia argenis - verbal only Personal Construction Supervisor 05/21/2024 2:58 PM sophie aguayo - verbal only Advance Directives and Living Will 05/04/2024 11:08 AM * Attempt Cardiopulmonary Resuscitation - Inpatient (Latest Code Status on File) Date Activated Date Inactivated Comments 04/30/2024 8:30 AM 05/01/2024 5:48 PM Question Answer Comments Code Status decision made by: Patient Content of discussion: OK with CPR during proced ure only * Do NOT Attempt CPR - Inpatient Date Activated Date Inactivated Comments 04/30/2024 8:30 AM 04/30/2024 8:30 AM Question Answer Comments Code Status decision made by: Patient Content of discussion: DNR/DNI Independent of Code Status d ecision, are there any PRE Arrest limitations (Intubation, Pressors, Cardioversion / Pacing, etc)? No Per policy, patient may rece emily all applicable life support PRE arrest: Acknowledged * Do NOT Attempt CPR - Inpatient Date Activated Date Inactivated Comments 04/27/2024 12:34 AM 04/30/2024 8:30 AM Question Answer Comments Code Status decision made by: Patient Content of discussion: DNR/DNI Independent of Code Status d ecision, are there any PRE Arrest limitations (Intubation, Pressors, Cardioversion / Pacing, etc)? No Per policy, patient may rece emily all applicable life support PRE arrest: Acknowledged * Attempt Cardiopulmonary Resuscitation - Inpatient Date Activated Date Inactivated Comments 04/26/2024 11:38 PM 04/27/2024 12:34 AM Question Answer Comments Code Status decision made by: Patient Content of discussion: FULL CODE; ACLS as requir ed * Attempt Cardiopulmonary Resuscitation - Inpatient Date Activated Date Inactivated Comments 10/30/2023 9:58 PM 11/03/2023 7:13 PM Question Answer Comments Code Status decision made by: Patient Care Teams Corporate Quality Manager Relationship Specialty Start Date End Date Masood Pierson MD [address] [place] [address] PCP - General Family Medicine 11/24/23
--- OUTSIDE RECORDS SUMMARY | 2024-07-25 15:43 | XMS_ITS | Encounter Summary ---
Author Organization [facility] [place] [address] Care Team Providers Care Cook Short Order Name Role Phone Masood Pierson MD Primary Care Provider [phone] Encounter Details Date Type Department Care Team (Latest Contact Info) Description 03/29/2024 Travel Social History Tobacco Use Types Packs/Day Years Used Date Smoking Tobacco: Former Smokeless Tobacco: Never Alcohol Use Standard Drinks/Week Comments Not Currently 0 (1 standard drink = 0.6 oz pur e alcohol) [facility] Utilities Answer Date Recorded In [...] 1:00 PM EST Office Visit Cardiology at [address] [phone] Izaiah Meyer MD [facility] [place] [address] 08/09/2024 10:00 AM EST Hospital Encounter Non-Invasive [place] [address] Arrived documented as of this encounter Visit Diagnoses Not on filedocumented in this encounter Care Teams Cook Short Order Relationship Specialty Start Date End Date Masood Pierson MD [address] [place] [address] PCP - General Family Medicine 11/24/23 documented as of this encounter
--- OUTSIDE RECORDS SUMMARY | 2024-07-25 15:43 | XMS_ITS | Encounter Summary ---
Author Organization [facility] Address [facility] [place] [address] Care Team Providers Care Hospitality Internship Name Role Phone Masood Pierson MD Primary Care Provider [phone] Encounter Details Date Type Department Care Team (Late st Contact Info) Description 04/26/2024 Telephone Cardiology at [address] [phone] Dre Dumont, PA [facility] [place] [address] Social History Tobacco Use Types Packs/Day Years Used Date Smoking Tobacco: Former Smokeless Tobacco: Never Alcohol Use Standard Drinks/Week Comments Not Currently 0 (1 standard drink = 0.6 oz pur e alcohol) [facility] Utilities Answer Date Recorded In the past 12 months has [employer] electric, gas, oil, or water company threatened [...] in a alf (including now)? No 11/01/2023 Housing Stability Vital Sign Answer Mukesh e Recorded In the last 12 months, was t here a time when you were not able to pay the mortgage or rent on time? No 04/27/2024 In the past 12 months, how m any times have you moved where you were living? 0 04/27/2024 At any time in the past 12 m [facility], were you homeless or living in a alf (including now)? No 04/27/2024 IPV Inpatient Questions [...] encounter Miscellaneous Notes * Telephone Encounter - Dre Dumont PA - 04/26/2024 11:42 AM EST Images from the original note were not included. Cardiology Access Note 04/26/2024 Lyla Goodrich Initial Contact Date: 04/26/2024 Contact time: 11:42 AM Referring: Referred by Beatriz Covington, HEADING AND PRIMING OPERATOR [address] [address] Past Medical History: ASCVD with LCx stenting 10/2023 and mid RCA HOOKER OFF, ascending aortic dilation 46 mm, ischemic cardiomyopathy with preserved LVEF 64% (10/2023) Brief History: Lyla Goodrich is a 83 y.o. female admitted 04/24 with weakness, dizziness and found to have tachycardia then beatrice. Held bbl w last dose last night. Qtc 586 in setting of low mag 1.7. In-house cardiology dr. Uriarte consulted and recommends transfer for pacemaker evaluation. She follows with Evangelist kaminski in [place] with recent visit 03/29/2024. Vital sign: 36.8 - 128/67 - 45/120 - 20-95 RA Pertinent Diagnostic Findings: Labs: hgb 13.cr 1.0, electrolytes ok. Repleting mag. EK04/24/2024-sinus bradycardia, 44 bpm, normal axis, QTc 383. 04/24/2024- junctional tachycardia, 108 bpm, QTc 586 ms. Plan: Listed for transfer Saturday 04/28 for pacemaker evaluation as recommended by Dr. Uriarte for tachy-bradycardia. She is hemodynamically stable. Above recommendations were based on my discussion with above listed OSH provider. I have not personally interviewed or examined this patient. I encouraged them to contact us if there is any change insymptoms, decision- making, or further need for guidance in management. Dre Dumont PA-C Access Pager [phone] 04/26/2024 documented in this encounter Plan of Treatment Upcoming Encounters Date Type Department Care Team (Late st Contact Info) Description 08/07/2024 1:00 PM EST Office Visit Cardiology at [address] [place] [phone] Izaiah Kaminski MD [facility] [place] [address] 08/09/2024 10:00 AM EST Hospital Encounter Non-Invasive Cardiology Lab [facility] [place] [address] Arrived documented as of this encounter Visit Diagnoses Not on filedocumented in this encounter Care Teams Hospitality Internship Relationship Specialty Start Date End Date Masood Pierson MD [address] [place] [address] PCP - General Family Medicine 11/24/23 documented as of this encounter
--- OUTSIDE RECORDS SUMMARY | 2024-07-25 15:43 | XMS_ITS | Encounter Summary ---
Author Organization [facility] Address [facility] [place] [address] Care Team Providers Care Case Aide Name Role Phone Masood Pierson MD Primary Care Provider [phone] Reason for Visit * Auth/Cert (Routine) Specialty Diagnoses / Procedures Referred By Contac t Referred To Contact Diagnoses Tachy-jey syndrome Tachy Jey syndrome Procedures ER IPI ADMIT Lillie Miles MD [facility] [place] [address] [facility] Referral ID Status Reason Start Date Expiration Date Visits Re quested Visits Authorized [id number] 1 1 Encounter Details Date Type Department Care Team (Late st Contact Info) Description 04/30/2024 7:35 AM EST - 04/30/2024 12:05 PM EST Surgery [place] [address] Dre Powers MD [facility] [place] [address] ELECTROPHYSIOLOGY PROCEDURE Social History Tobacco Use Types Packs/Day Years [...] in a halfway (including now)? No 11/01/2023 Housing Stability Vital Sign Answer Mukesh e Recorded In the last 12 months, was t here a time when you were not able to pay the mortgage or rent on time? No 04/27/2024 In the past 12 months, how m any times have you moved where you were living? 0 04/27/2024 At any time in the past 12 m [facility], were you homeless or living in a halfway (including now)? No 04/27/2024 IPV Inpatient Questions [...] Sign Reading Time Taken Comments Blood Pressure 144/68 04/30/2024 7:54 AM EST Pulse 51 04/30/2024 7:54 AM EST Temperature 36.4 ??C (97.6 ??F) 04/30/2024 7:32 AM ES T Respiratory Rate 20 04/30/2024 7:32 AM EST Oxygen Saturation 98% 04/30/2024 7:32 AM EST Inhaled Oxygen Concentration - - Weight 68.6 kg (151 lb 3.2 oz) 04/30/2024 5:00 A M EST Height 152.4 cm (5') 04/26/2024 10:50 PM EST Body Mass Index 30.08 04/26/2024 10:50 PM EST documented in this encounter Discharge Summaries * Marissa Almonte MD - 05/01/2024 12:48 PM EST Images from the original note were not included. Discharge Summary Patient Name: Lyla Goodrich Patient Age: 83 y.o. Language: Portuguese Race: White Ethnicity: Not nor Admit date: 04/26/2024 Discharge date: 05/01/24 Attending Physician: 05/01/24 Discharge Physician: Marissa Almonte MD Brief Hospital Course Summary: For specific details of hospital stay, please refer to daily progress notes and H&P. Briefly, Lyla Goodrich is a 83 y.o. female with a PMH of HFpEF, hx ASCVD (STEMI s/p PCI RCA 10/2023), HTN, hxurinary incontinence, hx tobacco use (not current, no COPD noted) who presented to OSH 04/25/24 withfluctuating HR and dizziness. Patient transferred to [facility] 04[place] for further management and c/f tachybradycardia. EP consulted on arrival. Recommend holding BB as likely culprit of bradycardia. S/p EP study 04/30 with incomplete suppression AT and subsequent placement of dual-chamber PPM. Patient restarted on toprol XL 12.5 daily and to follow-up with EP and cardiology for further titration Follow-up Recommendations for Providers: Medication Changes - STOP oxybutynin iso advanced age and with c/f dizziness To Do - recommend checking BMP, CBC, mag, phos with PCP follow-up - titration BB as needed for SVT Inpatient Provider Contact Information: Marissa Almonte MD [phone] For questions regarding this document or issues relating to this hospitalization on the Medical Service, please contact your inpatient physician through the [facility] Saddle Stitch Operator . Issues afterhours and on weekends will be handled by the Hospitalist staff on-call. Discharge Diagnoses (Hospital Problems) and Secondary Diagnoses (Chronic Problems): Active Hospital Problems Diagnosis Tachy-jey syndrome Pacemaker - [employer] Resolved Hospital Problems No resolved problems to display. Active Non-Hospital Problems Diagnosis Cardiomyopathy, ischemic Ascending aorta dilatation Hyperpiesia ASCVD (arteriosclerotic cardiovascular disease) Operations/Major Procedures/Imaging: Operations: Procedure(s): ELECTROPHYSIOLOGY PROCEDURE 04/30/2024 Other Major Procedures: Results for orders placed or performed during the hospital encounter of 04/26/24 XR Chest PA & Lateral (Generic) (Exam End: 05/01/2024 6:03 AM) Result Value WORKSTATION ID [id number] Narrative EXAMINATION: XR CHEST PA AND LATERAL (GENERIC) CLINICAL HISTORY: s/p device implant TECHNIQUE: PA and lateral views of the chest COMPARISON: 10/30/2023 FINDINGS: Stable cardiomediastinal silhouette. There are low lung volumes. No pleural effusion. No pneumothorax. Interval placement of dual chamber pacer leads terminating in the right atrium and right ventricle. Impression Dual-chamber pacer leads in expected position. No pneumothorax. I have personally reviewed the image(s) and the resident's interpretation and agree with the findings, Wilson Hester MD at 05/01/2024 1:20 PM Thank you for letting us participate in the care of this patient. If you are a health care provider and have any questions regarding this report, please contact the number below. For patients who have questions please contact the health hearing healthcare practitioner that requested your imaging first. Electronically signed by: Wilson Hester MD, [facility] ([phone]), at 05/01/2024 1:20 PM History of Presentation (per initial H&P): I called the healthcare center on Tuesday afternoon (04/25/2024, 5:00pm) and told them my heartwas beating 103 times a minute and my blood pressure was 142/91 on Tuesday afternoon (04/24/2024, 3:27pm). Earlier in the day (04/24/2024, 5:03am), my heart was beating 47 times a minute and my blood pressure was 144/70 (04/24/2024, 5:03am). I felt dizzy off and on all day on Tuesday (04/24/2024) and all day on Tuesday (04/25/2024), so they told me to go to [facility] ER to get checked out, so I went there, and sent me to [facility] to get a pacemaker. I feel fine right now. No complaints. I haven't eaten all day long. Can I have some dinner now, please? ... 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 In [facility] ER, patient was afebrile @ 36.4 degrees Celsius, HR 56, RR 14, O2 sat 94% on room air, and BP 123/73 (04/25/2024, 3:33pm). Labs in [facility] ER were noted for: Troponin #1 17 ng/L (04/24/2024, 7:37pm). Troponin #2 16 ng/L (04/24/2024, 9:48pm). Troponin #3 21 ng/L (04/25/2024, 5:30am). Mg 1.8 mg/dL (04/24/2024, 5:37pm). Mg 1.7 mg/dL (04/25/2024, 5:30am). Na 146, BUN 20, creatinine 1.1 (04/25/2024, 5:30am). WBC 6.65, no differential, Hb 13.5, platelet 179 (04/25/2024, 5:30am). WBC 6.38, N45 L34 M14 E6 B1, Hb 13.3, platelet 179 (04/26/2024, 5:36am). U/A: LE-, nitrite- (04/24/2024, 7:37pm). COVID- (04/24/2024, 8:52pm). Additional testing in [facility] ER included: EKG: none performed in [facility] Patient was subsequently diagnosed with the following diagnoses: Tachy-jey syndrome. Acute hypomagnesemia with Mg 1.7 mg/dL (04/25/2024, 5:30am). Acute hypernatremia with Na 146 mmol/L (04/25/2024, 5:30am). Chronic peripheral monocytosis with M% range, 11.9% (11/01/2023, 3:09am) to 16.9% (11/03/2023, 3:46am). To address #1, patient was subsequently placed on telemetry and held off her home-scheduled metoprolol XL 12.5mg PO daily as patient awaited transfer to [facility] for anticipated CARDS Service evaluation and anticipated PPM placement in the 04/27/2024 am. To address #2, patient received no magnesium supplement(s) and continued her home-scheduled spironolactone 25mg PO daily (04/25/2024, 8:30am, 04/26/2024, 7:56am). To address #3, patient received no IV fluid rehydration and continued continued her home-scheduled spironolactone 25mg PO daily (04/25/2024, 8:30am, 04/26/2024, 7:56am). To address #4, patient was observed. Patient was subsequently transferred from [facility] to [facility] bed#468-A on 04/26/2024 and admitted to the inpatient Cardiology Hospitalist Service on 04/26/2024 with the following diagnoses: Tachy-jey syndrome. Acute hypomagnesemia with Mg 1.7 mg/dL (04/25/2024, 5:30am). Acute hypernatremia with Na 146 mmol/L (04/25/2024, 5:30am). Chronic peripheral monocytosis with M% range, 11.9% (11/01/2023, 3:09am) to 16.9% (11/03/2023, 3:46am). Dizziness of unclear etiology, but probably due in part to a combination of #1, #2, #3 above, as well as home-scheduled anti-cholinergic oxybutynin 5mg PO daily, and/or home-scheduled metoprolol XL 12.5mg PO daily. To address #1, patient was continued on telemetry and held off her home- scheduled metoprolol XL 12.5mg PO daily as patient awaited transfer to [facility] for anticipated CARDS Service evaluation and anticipated PPM placement in the 04/27/2024 am. To address #2, patient is being held off her home-scheduled spironolactone 25mg PO daily (last administered at [facility] on 04/25/2024, 8:30am; 04/26/2024, 7:56am), given the potential for diuretic- mediated magne-uresis, as patient awaits repeat Mg level testing (04/27/2024, 3:20am). To address #3, patient is being held off her home-scheduled spironolactone 25mg PO daily (last administered at [facility] on 04/25/2024, 8:30am; 04/26/2024, 7:56am), given the potential for diuretic- mediated natri-uresis, as patient awaits repeat Na level testing (04/27/2024, 3:20am). To address #4, patient has been advised to follow up with her PCP Dr. Masood Pierson ([place], [place]) to consider outpatient CT chest/abd/pelvis with IV contrast to screen for undiagnosed malignancy or solicitation of outpatient Heme-Onc Service evaluation of chronic peripheral monocytosis as the differential for chronic peripheral monocytosis in the elderly population is: (1) leukemia, lymphoma, or other solid tumor(s); (2) acute viral syndrome. While bacterial infections including TB, tularemia, brucellosis, leptospirosis, listeriosis, and acute barrow valve endocarditis can cause acute peripheralmonocytosis, this patient has no stigmata on physical exam to suggest infection with any of the microbes causing such bacterial infections. In addition, I cannot exclude the possibility of acute viral syndrome, and hence, I have ordered influenza A/B, and RVS rapid antigen testing (04/27/2024, 3:45am). Cf., COVID- (04/24/2024, 8:52pm). To address #5, patient was immediately discontinued from her home-scheduled oxybutynin 5mg PO dailygiven the strong anti-cholinergic properties of this medication and its relative contra-indication in the elderly population (cf., 2022 [place] [employer]'s [place] Criteria for Potentially Inappropriate Medications in the Elderly). Patient also continues to be held off her home- scheduled metoprolol XL 12.5mg PO daily while in [facility] bed #468-A. Hospital Course (per problem list): #Paroxysmal SVT #Tachybradycardia - Initially held home metoprolol, likely culprit of bradycardia given HR >50 while on BB. ToprolXL 12.5 re-started post PPM placement. - EP consulted - s/p EP study 04/30 with incomplete suppression AT and subsequent placement of dual-chamber PPM. #Hx ASCVD - continue home ASA, plavix, statin #HTN - continue home spironolactone and losartan - BB as above #Hx Urinary Incontinence - HOLD home oxybutynin. #Chronic Back Pain - APAP PRN - trial lidocaine patch and capsaicin Vital Signs at Discharge: BP: 129/63, Heart Rate: 67, Temp: 36.6 ??C (97.9 ??F), Resp: 18, BMI (Calculated): 29.6 Height: 152.4 cm (5') (04/26/24 2250) Weight: 69.9 kg (154 lb) (05/01/24 0000) Functional and Cognitive Status: Cognitive status at baseline. Patient utilizing 1 person asses for transfers and ambulation with nursing. Patient to continue with home health and home PT with daily check in from nearby family Gen - AAOx4, NAD Cards - RRR Pulm - CTAB anteriorly Ext no LE edema Important Studies and Lab Data: Labs: Last 3 wbc, hgb, hct plt Recent Labs 05/01/24 0217 04/30/24 0228 04/29/24 0201 WBC 9.17 6.98 7.51 HGB 13.6 13.4 13.6 HCT 40.8 39.0 40.1 PLATELET 180 192 206 Last 3 Lytes Recent Labs 05/01/2421604/30/248 04/29/24 0201 NA 140 139 137 K 4.2 4.0 4.3 CL 106 106 103 CO2 23 22 23 BUN 17 22* 30* CREATININE 0.92 0.89 1.09 Last 3 LFTs Recent Labs 10/30/232204 AST 36* ALT 17 ALKPHOS 54 BILITOT 0.5 Last Ca, Mg, Phos Recent Labs 05/01/24216 CALCIUM 8.6 MAGNESIUM 0.91 Last 3 Coags Recent Labs 04/27/24311 PT 11.3 INR 1.0 Last 3 ProBNP, Trop, CK No results for input(s): CK, TROPONINT, PROBNP in the last 168 hours. Last 3 TFT Recent Labs 04/27/2431110/30/232204 TSH 2.99 3.35 Last 3 Lipids Recent Labs 10/30/232204 CHLPL 218 HDL 64 LDLCHOL 145 TRIG 46 Last 3 HgbA1C Recent Labs 10/30/232204 HA1C 5.5 Last CRP, SEDRATENo results for input(s): CRP, SEDRATE in the last 7068 hours. Discharge Conditions/Prognosis: stable Discharge to: home Updated Allergies/ADRs: Allergies Allergen Reactions Hydrocodone CIS - Nausea/Vomiting Hydrocortisone CIS - swelling Oxycodone-Acetaminophen CIS - Nausea/Vomiting Prednisone swelling Penicillins Itching Immunizations Given this Hospitalization: Immunization History Administered Date(s) Administered Influenza Adjuvanted (FluAd) Trivalent, PF 65yrs+ 05/01/2024 Discharge Medications: Your Medications Some of the medications listed here do not show instructions, such as how often to take the medication. Ask your doctor or nurse how to use these medications. Specifically ask about this and similar medications: CIS Free Text Med - vitamin b 125 complex New Medications Dose Details acetaminophen 325 mg tablet Commonly known as: Tylenol Take 3 tablets by mouth every 6 hours as needed. 975 mg Quantity: 30 tablet Refills: 1 Continued medications with new dosing Dose Details * metoprolol succinate XL 25 mg ER 24 hr tablet Commonly known as: Toprol-XL Take 0.5 tablets by mouth daily. What changed: Another medication with the same name was added. Make sure you understand how and when to take each. 12.5 mg Quantity: 30 tablet Refills: 12 * metoprolol succinate XL 25 mg ER 24 hr tablet Commonly known as: Toprol-XL Take 0.5 tablets by mouth daily. Start taking on: May 02, 2024 What changed: You were already taking a medication with the same name, and this prescription was added. Make sure you understand how and when to take each. 12.5 mg Quantity: 30 tablet Refills: 12 * This list has 2 medication(s) that are the same as other medications prescribed for you. Read thedirections carefully, and ask your doctor or other care provider to review them with you. Continued medications, unchanged Dose Details aspirin EC 81 mg EC (DR) tablet Take 1 tablet by mouth daily. 81 mg Quantity: 30 tablet Refills: 3 atorvastatin 80 mg tablet Commonly known as: Lipitor Take 1 tablet by mouth every evening. 80 mg Quantity: 90 tablet Refills: 3 CALCIUM ORAL Refills: 0 CIS FREE TEXT MED Refills: 0 clopidogreL 75 mg tablet Commonly known as: Plavix Take 1 tablet by mouth daily. 75 mg Quantity: 90 tablet Refills: 3 losartan 50 mg tablet Commonly known as: Cozaar Take 1 tablet by mouth daily. 50 mg Quantity: 90 tablet Refills: 3 nitroGLYcerin 0.4 mg sublingual tablet Commonly known as: Nitrostat Place 1 tablet under the tongue every 5 minutes as needed for Chest pain. 0.4 mg Quantity: 90 tablet Refills: 12 spironolactone 25 mg tablet Commonly known as: Aldactone Take 1 tablet by mouth daily. 25 mg Quantity: 90 tablet Refills: 3 VITAMIN B-12 ORAL Refills: 0 VITAMIN C ORAL Refills: 0 STOPPED Medications oxyBUTYnin 5 mg tablet Commonly known as: Ditropan Smoking Status at Discharge: Social History Tobacco Use Smoking Status Former Smokeless Tobacco Never Instructions Given to Patient at Discharge: Patient Instructions You were hospitalized for evaluation of your dizziness. 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 You underwent a pacemaker placement with electrophysiology team on 04/29. To prevent the elevated heart rates, you will be continued on the metoprolol succinate 12.5 daily. You will follow-up with your mass communications instructor for further medication titration. Call your PCP if: You have worsening chest pain, increased dyspnea (shortness of breath at rest or on exertion), increased swelling in legs occurs, or for weight gain of 2 pounds overnight or 5 pounds in 5 days. Given the concerns of your fluctuating heart rates, and concern for future urinary retention, your oxybutynin was discontinued. Please STOP taking oxybutynin and follow-up with your PCP for restarting this medication. If you have non-emergent questions, prior to your follow-up visit call: Tuesday-Tuesday between the hours of 8AM-5PM please call the Cardiology Clinic [phone] to speak with a nurse. All other hours please call the Hospital Saddle Stitch Operator [phone] and ask to speak to the cardiovascular hospitalist on-call. For any emergent questions, please call 911 or visit your nearest emergency department/urgent care center Follow up Appointments: Doctor Where Phone # Date Time PCP Masood Pierson MD [address] [place] [phone] April 10:30 am Legal Document Assistant Izaiah Meyer MD [facility] [phone] Tuesday June 04, 2024 3:20 pm Please arrive before 3:10pm for check in General Instructions FINAL PACEMAKER RECOMMENDATIONS: 1. Standard post implant discharge instructions (see below): 2. Medications as listed above. You may use ice packs over the incision. Make sure to use a clothing and textiles teacher (such as a towel) in between the ice pack and the bare skin and that it stays DRY. 3. EP will schedule an outpatient follow up visit in the next three months. DEVICE CLINIC 1. You will be scheduled for an outpatient follow up visit: ?? Device interrogation ?? Review of remote follow up and set up of home monitor 2. Your device will be checked every 3 months (either in clinic or by remote). 3. Prior to discharge, you will be given a home monitor so that your device can send clinical data to the device clinic nurses. If you are unable to set this up at home prior to your wound check, we will review this at the time of your appointment NOTE: The device data we review from your home monitor is comparable to an in- office appointment. Therefore, your insurance company will be billed for review of your data. Depending on your coverage,you may be responsible for a portion of his charge. We recommend that you contact your insurance carrier for more details about your particular coverage. WOUND CARE FOR YOUR INCISION: Your wound will usually heal in 7-10 days. Your wound may be tender, it may appear slightly red andbumpy and there may be dry, crusty scabbing. These are all normal. How to Care for your Incision: - Either you or someone with you needs to look at the wound every day. - Report any signs of infection immediately: Drainage Swelling Warmth Increased pain Fevers/chills - Call if you are concerned about infection or the edges of the wound separate - A needle should not be put into the wound area because this can damage the device. You may need to remind your healthcare provider of this concern - There are sutures inside the incision that will dissolve on their own - Do not scratch or rub the wound - Do not apply creams, lotions, or ointments to the incision until is completely healed. - You may cover the wound with gauze if it rubs on clothing and causes discomfort - Protect your wound from injury until the skin has had sufficient time to heal - Do not shower for 48 hours after implant - While in the shower, turn your back to the water nozzle so you avoid direct water pressure on thewound. Continue this for 7-10 days. - After 48 hours, you may wash the wound gently with soap and water (unless there is DermaBond on the incision - see below) - Do not submerge the incision (bathtubs, hot tubs, or swimming) for at least two weeks Your incision has been covered with a Mepilex dressing. - This dressing will stay on for 5 days. - Please remove the dressing on: May 05 - If the edges pull up substantially or fluid gets underneath the Mepilex dressing, remove it sooner - Once removed, you may notice some grayish discoloration. This is normal. Your incision has been closed with: Dermabond - This is a sterile, liquid skin adhesive that holds wound edges together. The film will usually remain in place for a few weeks, then naturally sloughs (falls) off your skin. - Do not scratch, rub, or pick at the Dermabond adhesive film. This may loosen the film before yourwound is healed. - Protect the wound from prolonged exposure to sunlight or tanning lamps while the film is in place - You may occasionally and briefly wet your wound in the shower or bath. Do not soak or scrub your wound, do not swim, and avoid periods of heavy perspiration until the Dermabond adhesive has naturally fallen off. After showering or bathing, gently blot your wound dry with a soft towel CALL IMMEDIATELY: If you develop chest pain, shortness of breath, bleeding, discharge from the incision, opening of the incision and/or fever/temperature >100 degrees F. The office scheduling phone number is [phone]. ARM MOVEMENT RESTRICTIONS POST-IMPLANT - Do not raise your elbow on [...] for 6 weeks - No driving for one week. If you have any questions or concerns about this product, please call the Cardiac ElectrophysiologyTriage Nurse at [phone], option 3. Future Appointments and Orders Future Appointments and Orders Future Appointments Provider Department Dept Phone 06/04/2024 3:20 PM Izaiah Meyer MD [facility] Arrive at: [facility] [address] [phone] 10/24/2024 11:00 AM Izaiah Meyer MD [facility] Arrive at: [facility] [address] [phone] Future Orders Complete By Expires Referral to Home Health [[id number] Custom] As directed Process Instructions: If no progress note charted, please enter Clinical details in comments. Scheduling Instructions: Comments: Please evaluate Lyla Goodrich for admission to Home Health. [address] [place] [address] Phone Number: [phone] (home) Date of : 1940 Inpatient DOCUMENTATION FOR VNA SERVICES (INCLUDING THOSE PATIENTS WITH MEDICARE COVERAGE REQUIRING HOME VNA SERVICES AND/OR HOSPICE SERVICES) PATIENT'S LOCATION: Lyla Goodrich [address] [place] [address] [phone] (home) Cell: Telephone Information: In discussion with the attending physician, it is certified that this patient is under their care and that they, or a Nurse Practitioner, Clinical Nurse specialist or Physician Refrigerator Mover who is working directly with them, had a face to face encounter that meets the physician face to face encounter requirements with this patient on 05/01/24 (MD please enter DC date here) The encounter with the patient was in whole, or in part, for the following medical condition, whichis the primary reason for home health care services: tachybradycardia In discussion with the provider, it is [...] management and Reinforce education regarding health issues PT ORDERS: Continue rehab for endurance, gait stability and strength with mobility and transfers. Home safety evaluation. Home exercise program if appropriate. OT ORDERS: Assess and continue rehab for managing ADLs. Home Health Aide: Assist with personal care activities, ie. dressing/bathing HOME HEALTH CARE AGENCY: [facility]. [address] [place] [phone] START OF CARE: within 24-48 hours of discharge In discussion with the attending physician, it is certified that the clinical findings support thatthis patient is homebound because absences from home require considerable and taxing effort due to:Unable to ambulate community surfaces or distances unassisted due to pain, lower extermity weaknessor decreased balance and risk for falls Unsteady gait, poor balance, requiring assistive devices and/or assistance of another. Please note that any additional orders needs or changes will need to be obtained from this patient's PCP: Masood Pierson MD [address] / [facility] [id number] . All A agencies which cover the area of patient's residence have been reviewed, either verbally or in writing, and patient/family have chosen the home health care agency noted. Questions: Disciplines Requested: Nursing Physical Therapy Occupational Therapy Home Health Aide Discharge References/Attachments None Greater than 30 minutes was spent on this discharge including documentation, [id number] time withthe patient, patient education, order dispatcher, coordination with pharmacy and other patient care. documented in this encounter Discharge Instructions * Discharge Instructions* Kwame Amaya PA - 05/01/2024 12:20 PM EST FINAL PACEMAKER RECOMMENDATIONS: 1. Standard post implant discharge instructions (see below): 2. Medications as listed above. You may use ice packs over the incision. Make sure to use a clothing and textiles teacher (such as a towel) in between the ice pack and the bare skin and that it stays DRY. 3. EP will schedule an outpatient follow up visit in the next three months. DEVICE CLINIC 1. You will be scheduled for an outpatient follow up visit: ?? Device interrogation ?? Review of remote follow up and set up of home monitor 2. Your device will be checked every 3 months (either in clinic or by remote). 3. Prior to discharge, you will be given a home monitor so that your device can send clinical data to the device clinic nurses. If you are unable to set this up at home prior to your wound check, we will review this at the time of your appointment NOTE: The device data we review from your home monitor is comparable to an in- office appointment. Therefore, your insurance company will be billed for review of your data. Depending on your coverage,you may be responsible for a portion of his charge. We recommend that you contact your insurance carrier for more details about your particular coverage. WOUND CARE FOR YOUR INCISION: Your wound will usually heal in 7-10 days. Your wound may be tender, it may appear slightly red andbumpy and there may be dry, crusty scabbing. These are all normal. How to Care for your Incision: - Either you or someone with you needs to look at the wound every day. - Report any signs of infection immediately: Drainage Swelling Warmth Increased pain Fevers/chills - Call if you are concerned about infection or the edges of the wound separate - A needle should not be put into the wound area because this can damage the device. You may need to remind your healthcare provider of this concern - There are sutures inside the incision that will dissolve on their own - Do not scratch or rub the wound - Do not apply creams, lotions, or ointments to the incision until is completely healed. - You may cover the wound with gauze if it rubs on clothing and causes discomfort - Protect your wound from injury until the skin has had sufficient time to heal - Do not shower for 48 hours after implant - While in the shower, turn your back to the water nozzle so you avoid direct water pressure on thewound. Continue this for 7-10 days. - After 48 hours, you may wash the wound gently with soap and water (unless there is DermaBond on the incision - see below) - Do not submerge the incision (bathtubs, hot tubs, or swimming) for at least two weeks Your incision has been covered with a Mepilex dressing. - This dressing will stay on for 5 days. - Please remove the dressing on: May 05 - If the edges pull up substantially or fluid gets underneath the Mepilex dressing, remove it sooner - Once removed, you may notice some grayish discoloration. This is normal. Your incision has been closed with: Dermabond - This is a sterile, liquid skin adhesive that holds wound edges together. The film will usually remain in place for a few weeks, then naturally sloughs (falls) off your skin. - Do not scratch, rub, or pick at the Dermabond adhesive film. This may loosen the film before yourwound is healed. - Protect the wound from prolonged exposure to sunlight or tanning lamps while the film is in place - You may occasionally and briefly wet your wound in the shower or bath. Do not soak or scrub your wound, do not swim, and avoid periods of heavy perspiration until the Dermabond adhesive has naturally fallen off. After showering or bathing, gently blot your wound dry with a soft towel CALL IMMEDIATELY: If you develop chest pain, shortness of breath, bleeding, discharge from the incision, opening of the incision and/or fever/temperature >100 degrees F. The office scheduling phone number is [phone]. ARM MOVEMENT RESTRICTIONS POST-IMPLANT - Do not raise your elbow on [...] for 6 weeks - No driving for one week. If you have any questions or concerns about this product, please call the Cardiac ElectrophysiologyTriage Nurse at [phone], option 3. * Patient Instructions* Marissa Almonte MD - 04/30/2024 2:43 PM EST You were hospitalized for evaluation of your dizziness. 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 You underwent a pacemaker placement with electrophysiology team on 04/29. To prevent the elevated heart rates, you will be continued on the metoprolol succinate 12.5 daily. You will follow-up with your mass communications instructor for further medication titration. Call your PCP if: You have worsening chest pain, increased dyspnea (shortness of breath at rest or on exertion), increased swelling in legs occurs, or for weight gain of 2 pounds overnight or 5 pounds in 5 days. Given the concerns of your fluctuating heart rates, and concern for future urinary retention, your oxybutynin was discontinued. Please STOP taking oxybutynin and follow-up with your PCP for restarting this medication. If you have non-emergent questions, prior to your follow-up visit call: Tuesday-Tuesday between the hours of 8AM-5PM please call the Cardiology Clinic [phone] to speak with a nurse. All other hours please call the Hospital Saddle Stitch Operator [phone] and ask to speak to the cardiovascular hospitalist on-call. For any emergent questions, please call 911 or visit your nearest emergency department/urgent care center Follow up Appointments: Doctor Where Phone # Date Time PCP Masood Pierson MD [address] [place] [address] April 10:30 am Legal Document Assistant Izaiah Meyer MD [facility] [phone] Tuesday June 04, 2024 3:20 pm Please arrive before 3:10pm for check in documented in this encounter Medications at Time of Discharge Medication Sig Dispensed Refills Start Date End Date acetaminophen (Tylenol) 325 mg tablet Take 3 tablets by mouth every 6 hours as needed. 30 tablet 1 05/01/2024 aspirin EC 81 mg EC (DR) tablet [...] by mouth daily. 90 tablet 3 11/04/2023 ASCORBIC ACID (VITAMIN C ORAL) 01/30/2008 CYANOCOBALAMIN, VITAMIN B-12, (VITAMIN B-12 ORAL) Take 1 capsule by mouth daily. 01/30/2008 CALCIUM ORAL Take 1 capsule by mouth daily. 01/30/2008 metoprolol succinate XL (Toprol-XL) 25 mg ER 24 hr tablet Take 0.5 tablets by mouth daily. 30 tablet 12 05/02/2024 06/04/2024 CIS Free Text Med - vitamin b 125 complex 01/30/20082023 documented as of this encounter Progress Notes * Kwame Amaya PA - 05/01/2024 12:06 PM EST Cardiac Electrophysiology Post-Implant Device Interrogation Lyla Goodrich [id number] 05/01/2024 History: Lyla Goodrich is a 83 y.o. female with a history of symptomatic SVT and conversion pauseswho underwent EPS and partial atrial tachycardia ablation followed by implantation of a dual lead [employer] pacemaker. Physical Exam: Vitals: 05/01/24 0502 05/01/24 0715 05/01/24 1124 05/01/24 1144 BP: 132/70 132/65 91/52 129/63 BP Location (NBP): Right arm Right arm Right arm Patient Position: Lying Lying Lying Pulse: 63 60 67 67 Resp: 17 18 Temp: 36.7 ??C (98 ??F) 36.6 ??C (97.9 ??F) 36.6 ??C (97.9 ??F) 36.6 ??C (97.9 ??F) TempSrc: Oral Oral Oral Oral SpO2: 92% 95% 98% 98% Weight: Height: General- No acute distress, laying comfortably in bed. Skin- Pocket incision is CDI. Edges are approximated without drainage. Surgical glue is intact. Cardiovascular- S1/S2 regular rate and rhythm. No murmur. Lungs- Clear to auscultation bilaterally Neuro- A&Ox3 Device Interrogation: [employer] Accolade MRI [id number] 04/30/2024 RA RV DDDR @ 60/100 RhythmIQ enabled MS 140bpm Battery and Leads Voltage: -- Status: > 8yrs Magnet Rate: 100bpm Charge Time: n/a Impedances (ohms) Sensing (mV) Thresholds HV RA RV LV RA RV LV RA RV LV -- 564 543 -- 2.1 2.7 -- 1.0V @ 0.4ms 0.4V @ 0.4ms -- POD#1 CXR: 05/01/2024 Left sided dual lead pacemaker Good lead position No pneumothorax Impression: 83 y.o. female who is s/p EPS with ablation of atrial tachycardia, followed by implantation of a dual lead [employer] pacemaker. - Appropriate device function post-implant - CXR negative for post-implant complications Plan: 1. Reviewed standard post-implant discharge instructions (see patient instructions) including arm restrictions, wound care, bathing, and driving. 2. EP will schedule outpatient follow up. Provider: FLAVIO Alanis EP Consult attending physician: Xi Carrington MD EP Consult positional pager #[phone](EPMD) EP Device interrogation positional pager # [phone] * Lexi Cruz, OT - 05/01/2024 10:24 AM EST Occupational Therapy Evaluation Patient profile: Lyla Goodrich is a 83 y.o. female admitted on 04/26/2024 with a PMH of HFpEF, hx ASCVD (STEMI s/p PCI RCA 10/2023), HTN, hx urinary incontinence, hx tobacco use (not current, no COPDnoted) who presented to OSH 04/25/24 with fluctuating HR and dizziness. [place] [facility] [place] for further management and c/f tachybradycardia. Now s/p dual-chamber PPM on 04/30. Past Medical History: Diagnosis Date Hyperlipidemia Hypertension No past surgical history on file. Social History: Patient lives alone in an apt. Reports supportive neighbors Home Setup: Threshold to enter. Single floor. Regular bed, but also has a recliner if needed. Tub shower with bars, no chair DME: Walking stick Baseline ADL/Mobility: Independent all ADL/IADL tasks. Drives. Ambulates w/o any AD. Has as daughter who lives 5 minutes away and can provide assistance. Enjoys painting. Reports a supportive family Precautions/Special Considerations: UE pacemaker precautions- L arm Do not raise on the operated side above the shoulder for 6 weeks. no extreme movements (such as stretching or reaching for a heavy object) for 6 weeks. Do not lift greater than 7 pounds with the arm on the operated side for 6 weeks. Subjective: When can I take a shower? Objective: Seen today for OT evaluation. Cognitive Status/Behavior: Behavior / Mood: Alert, pleasant, willing to participate Alert and oriented to: person, place, month, year, and situation Follows commands: multi step and 100% of the time Attention: WFL Safety awareness: WFL; Good insight to precautions Vision & Perception: corrective lenses clin asst Communication: BOIS FORTE; has B aids Range of motion, strength, coordination: Hand dominance: right Bilateral UE/LEs are within functional limitations w/ the exception L shoulder d/t pacer precautions Sensation: Intact Activities of Daily Living: Self-feeding: Independent Grooming: Completed oral care with set up Dressing: OT assisted with changing out her gown only d/t lines. SBA to don underwear and socks Bathing: Washed zia area with SBA in standing Toileting: Transfer: N/A Hygiene: Incontinent of urine upon OT arrival. SBA to wash zia area in standing Functional Mobility: Supine to sit: SBA to L side of the bed. HOB flat Sit to stand: SBA Ambulation: Ambulated 300 feet with SBA, no AD Stand to sit: SBA Sit to supine: N/A; Patient remained seated in her bedside chair upon completion of her OT eval Balance: Sitting balance: Good Standing balance: Good Vitals: At Rest With Activity Heart Rate 67 107 Blood Pressure 151/71 (96) 145/88 (85) Mild reports of dizziness Pain: Reported soreness to L chest incisional site. Did not rate Education: patient has been educated on Role of occupational therapy/rehabilitation, Transfers, ADL, Positioning, Safety, Precautions/Protocol, Functional Mobility, Home Management, Recommendations, and Discharge planning and verbalizes understanding. Patient status, treatment, and mobility recommendations discussed with nursing. Assessment: Pt has been seen for occupational therapy evaluation. Patient presented as alert, pleasant and motivated to participate. She demonstrated the ability to transfer, ambulate and complete ADL task at independent/SBA level w/o any AD. She lives alone, but reports her daughter can assist, asneeded. She demonstrated good awareness of her pacer precautions. She would benefit from a shower chair. At this time, patient is safe to d/c to home once medically stabilized. Do not anticipate further OT needs while hospitalized. Equipment Recommendations: shower chair Anticipated Discharge Disposition (OT): home with daily check in (from her daughter), home with home health Other Recommendations: Utilize upright chair position using bed features or transfer to recliner chair as appropriate withSBA, ambulate as tolerated Encourage participation in ADL's by providing set up A on tray table and physical assist only as needed Plan: OT: Therapy Frequency (OT): evaluation only Total Minutes, Occupational Therapy: 45 OT Evaluation Code Rationale: Diagnosis & Pertinent Co-Morbidities affecting Plan of Care: see PMHx Occupational Profile & Client History: Brief Expanded Extensive x Assessment of Occupational Performance: 1-3 performance deficits x 3-5 performance deficits 5 + performance deficits Clinical Decision Making: Low Moderate High x Clinical decision making of low complexity using standardized patient assessment instrument and measurable assessment of functional outcome. Pager: [phone] Lexi Cruz OTR/L Occupational Therapy Rehabilitation Department * Anika Gillette, PT - 05/01/2024 9:44 AM EST Physical Therapy evaluation Patient profile: Lyla Goodrich is a 83 y.o. female with a PMH of HFpEF, hx ASCVD (STEMI s/p PCI RCA 10/2023), HTN, hx urinary incontinence, hx tobacco use (not current, no COPD noted) who presented to OSH 04/25/24 with fluctuating HR and dizziness. Patient [place] [facility] [place] for further management and c/f tachybradycardia. EP consulted on arrival. Recommend holding BB as likely culprit of bradycardia. S/p EP study 04/30 with incomplete suppression AT and subsequent placement of dual-chamber PPM. Patient with the following active problems: Past Medical History: Diagnosis Date Hyperlipidemia Hypertension No past surgical history on file. Social History: Home set-up: Lives alone in a first floor, single level apartment in [place], [place] Stairs: 1 step/threshold to enter with a rail Bathroom Set-up: Tub-shower with grab bars, no shower chair Baseline Mobility: Ambulates without an assistive device, but occasionally uses a walking stick forlong/community distances. Independent with I/ADLs, including driving. She sleeps in a flat bed (gets on on L side), does have a recliner chair if needed. Daughters lives 5 minutes away and is able toassist, but does work 5 days/wk. Has 7 kids and 16 grandkids, supportive family. Equipment at home: Walking stick, cane? Fall history: Denies any falls in the last year Precautions/Special Considerations: Full Code, PPM 04/30 Lines: Telemetry, PIV, External Catheter Activity Orders: UE pacemaker precautions- L arm Do not raise on the operated side above the shoulder for 6 weeks. no extreme movements (such as stretching or reaching for a heavy object) for 6 weeks. Do not lift greater than 7 pounds with the arm on the operated side for 6 weeks. Diet: [facility] Diet Mobility and Positioning Recommendations: Pt. to utilize 1 person assist and no assistive device for transfers and ambulation with nursing. Please encourage up to chair for meal times as able. Pt encouraged to ambulate frequently with staff, getting into the bathroom for toileting and walking out in the perez >/= 3 times daily as able. Subjective: ???Don't help me, I won't to make sure I do it by myself. I live alone you know?? Should I wear sling so I don't use my arm? Objective: Pt seen for evaluation today in conjunction with OT. Pain: Reports 4-510 pain (soreness) at pacemaker site, improved during session Vital Signs: At Rest With Activity BP 151/71 (96) mm Hg, supine in bed 163/68 (98) mm Hg, sitting in bedside chair following activity 145/80 (80) mm Hg, sitting in bedside chair after a few minutes HR 65 bpm 83-105 bpm, on instance of 117 with stairs Mental Status: Alert, oriented to person, place, and time, wifty at times, pleasant, agreeable Vision: Wears corrective lenses clin asst Skin: Visible skin grossly intact, L PPM site c/d/i Musculoskeletal (R handed): ROM: BLE WFL, BUE WFL except L shoulder not assessed d/t pacer precautions Strength: BLE WFL, BUE WFL except L shoulder not formally assessed d/t pacer precautions, L elbow, wrist and hand >3/5, life skills teacher strength equal bilaterally Sensation: Intact, denies numbness or tingling Bed Mobility: Supine to Sit: Supervision, HOB flat, towards L EOB, required multiple attempts as pt initially attempting to use momentum to transfer from supine to long sit, good adherence to precautions Sit to Supine: NA, pt ended session sitting in bedside chair Transfers: Sit to Stand: SBA from EOB and toilet, no assistive device Stand to Sit: SBA to toilet and bedside chair, no assistive device Gait: Distance: 300' Device used: None Level of assist: SBA Gait mechanics: Decreased gait speed, short step length/height, reciprocal pattern, narrow RENE Stairs: Ascended and descended 1 stairs with R rail and CGA Balance: Sitting Static: Good, SBA sitting EOB Sitting Dynamic: Good, SBA sitting EOB Standing Static: Good without an AD, SBA Standing Dynamic/Gait: Fair+ without an AD, SBA Therapeutic Exercise: NA Education: Patient has been educated on bed mobility, transfers, gait, stairs, positioning, activity pacing/energy conservation, safety, role of therapy, and discharge planning and verbalizes and demonstrates understanding. Patient status, treatment, and mobility recommendations discussed with nursing. Pt left in bedside recliner chair, with all needs met, with call abdalla in reach, and with chair alarm active following visit. Assessment: Lyla Goodrich was seen today for physical therapy evaluation. Pt is 1 day s/p L PPM. Upon evaluation, patient presents with pain, hypertension, lightheadedness, decreased endurance, and reduced activity tolerance, resulting in functional limitations. Despite these deficits, pt performed bed mobility with HOB flat, practiced transfers from various surfaces, ambulated >300' without an assistive device with steady gait, and negotiated a stair with SBA. Pt verbalized and demonstrated a good understanding of pacer precautions throughout mobility. Pt maintained stable vitals on roomair except was hypertensive throughout. Following activity, pt did note mild lightheadedness sitting in bedside chair, vitals stable and RN aware. Based on current presentation, recommend pt discharge home with home health and frequent check- ins/support from her daughter/family who live close by. Pt has no further inpatient PT needs, yet should continue to mobilize frequently while in house to prevent deconditioning. Inpatient Physical Therapy Plan: evaluation only Discharge Recommendations: Based on current findings, home with home health, home with daily check in Consult Recommendations: No other consults recommended at this time. Equipment needs: None Physical Therapy Goals: To be achieved by 05/01/2024: met Pt. to demonstrate knowledge of safety limitations and precautions and will appropriately request assistance for functional activities and to mobilize. Pt. to demonstrate understanding of appropriate therapeutic exercises. Pt. to perform bed mobility with supervision with HOB flat. Pt. to perform sit<>stand transfers with supervision without an assistive device. Pt. to ambulate 150 feet with supervision using no assistive device. Pt. to ambulate up/down 1 stair using one rail with supervision. Pt will tolerate progression towards upright with stable vital signs. 2017 PT Evaluation Code Rationale: Diagnosis & Pertinent Co-Morbidities, personal factors, and present illness affecting Plan of Care: Total # of Factors: 0 1-2 3+ X Examination of body system impairments, functional limitations and behaviors, and/or participation restrictions Addressing 1-2 elements Addressing 3 + elements X Addressing 4 + elements Clinical presentation: See assessment above. Stable/Uncomplicated Evolving/Fluctuating Symptoms Unstable/Unpredictable X- HTN, dizziness Clinical decision making of moderate complexity based on pt's functional performance as outlined inthis evaluation. Time IN/OUT: 8:55-9:44 Total Time: 49 minutes, Moderate Complexity Evaluation Anika Gillette, PT Pager: [phone] Physical Therapy Inpatient Rehabilitation Department * Marissa Almonte MD - 04/30/2024 6:22 PM EST [facility] - [facility] DAILY PROGRESS NOTE Page [phone] to reach a provider 10/01 Admit Date: 04/26/2024 Encounter Date April 30, 2024 Anticipated Discharge Date: 05/01/2024 Hospital Day: 4 Active Hospital Problems Diagnosis Tachy-jey syndrome Resolved Hospital Problems No resolved problems to display. 24 Hour Events/Subjective: - Feels well today AM. Reports no episodes of dizziness overnight or today AM. Per nursing, noted to have SVT episodes more with exertion, with HR sustaining at times up to 150s. - Patient denies chest pain, SOB, palpitations, TOMPKINS, abd pain, n/v - Underwent EP study with incomplete AT suppression, so dual chamber PPM placed Medications: Scheduled Meds: lidocaine 1 patch Transdermal Q24H capsaicin Topical (Top) BID aspirin EC 81 mg Oral Daily atorvastatin 80 mg Oral QPM clopidogreL 75 mg Oral Daily losartan 50 mg Oral Daily spironolactone 25 mg Oral Daily sodium chloride 0.9 % (flush) 5 mL Intravenous BID heparin (porcine) 5,000 Units Subcutaneous 2 times per day Continuous Infusions: PRN Meds:.influenza vaccine (65 yrs +), sodium chloride 0.9 % (flush), lidocaine, nitroGLYcerin, acetaminophen Objective: Last value Range last 24 hrs Temp: 36.6 ??C (97.9 ??F) Temp: [36.4 ??C (97.5 ??F)-36.8 ??C (98.2 ??F)] Heart Rate: 61 Heart Rate from SpO2: 62 bpm Heart Rate: [51-104] BP: 108/69 BP: (90-144)/(54-84) Resp: 16 Resp: [15-21] SpO2: 95 % SpO2: [93 %-98 %] Height: 152.4 cm (5') Weight: 68.6 kg (151 lb 3.2 oz) BMI (Calculated): 29.6 BMI Classification: Over Weight Admit weight: 68.77 kg Patient Vitals for the past 168 hrs: Weight 04/30/24 0500 68.6 kg (151 lb 3.2 oz) 04/29/24 0433 69 kg (152 lb 1.9 oz) 04/28/24 0501 67.6 kg (149 lb 0.5 oz) 04/27/24 0600 68.9 kg (151 lb 14.4 oz) 04/26/24 2250 68.8 kg (151 lb 9.6 oz) Intake/Output Summary (Last 24 hours) at 04/30/2024 1822 Last data filed at 04/30/2024 1403 Gross per 24 hour Intake 400 ml Output 800 ml Net -400 ml Physical Exam: Physical Exam HENT: Head: Normocephalic and atraumatic. Mouth/Throat: Mouth: Mucous membranes are moist. Eyes: Extraocular Movements: Extraocular movements intact. Neck: Comments: No elevated JVD Cardiovascular: Rate and Rhythm: Regular rhythm. Bradycardia present. Pulmonary: Effort: Pulmonary effort is normal. Abdominal: General: There is no distension. Palpations: Abdomen is soft. Musculoskeletal: Cervical back: Neck supple. Right lower leg: No edema. Left lower leg: No edema. Skin: General: Skin is warm. Neurological: Mental Status: She is alert. Labs: Recent Labs 04/30/2422704/29/2420004/28/[id number]/27/24311 WBC 6.98 7.51 8.16 7.99 HGB 13.4 13.6 14.8 14.1 HCT 39.0 40.1 41.7 40.9 PLATELET 192 206 203 200 MCV 99.0* 99.8* 99.3* 98.3* Recent Labs 04/30/2422704/29/2420004/28/2433104/27/24311 NA 139 137 141 142 CL 106 103 105 106 CO2 22 23 22 24 K 4.0 4.3 4.2 4.4 MAGNESIUM 0.89 0.87 0.89 0.88 CALCIUM 8.6 8.6 8.9 9.3 BUN 22* 30* 25* 22* CREATININE 0.89 1.09 0.97 1.00 Coags Recent Labs 04/27/24311 INR 1.0 PT 11.3 Cardiac Markers Recent Labs 04/27/24 031 TROPONINTHS 14 Endocrine Recent Labs 04/27/242 10/30/23 2205 TSH 2.99 3.35 HA1C -- 5.5 No results for input(s): CHLPL, TRIG, HDL, LDLCHOL, CHOLHDL in the last 168 hours. Recent Labs 04/30/24 0228 04/29/24 0201 04/28/24 0332 GLUCOSE 111 109 101 Imaging: No results found for this visit on 04/26/24 (from the past 24 hour(s)). Assessment: Lyla Goodrich is a 83 y.o. female with a PMH of HFpEF, hx ASCVD (STEMI s/p PCI RCA 10/2023), HTN, hx urinary incontinence, hx tobacco use (not current, no COPD noted) who presented to OSH 04/25/24 with fluctuating HR and dizziness. [place] [facility] management and c/f tachybradycardia. EP consulted on arrival. Recommend holding BB as likely culprit of bradycardia. S/p EP study 04/30 with incomplete suppression AT and subsequent placement of dual-chamber PPM. Plan: #Paroxysmal SVT #Tachybradycardia - HOLD home metoprolol, likely culprit of bradycardia given HR >50 while BB washing out. - EP consulted - s/p EP study 04/30 with incomplete suppression AT and subsequent placement of dual-chamber PPM. #Hx ASCVD - continue home ASA, plavix, statin #HTN - continue home spironolactone and losartan - HOLD BB as above #Hx Urinary Incontinence - HOLD home oxybutinin #Chronic Back Pain - APAP PRN - trial lidocaine patch and capsaicin Diet: Regular diet DVT Prophlaxis: SCDs, SQH Code status: Attempt Cardiopulmonary Resuscitation - Inpatient (reverse DNR for procedure) Disposition: Discharge Planning: AM-PAC Basic Mobility Raw Score: 24 PT: OT: PCP Masood Pierson MD [phone] * Agnes Law, RN - 04/30/2024 4:15 PM EST Pt sleeping off and on. Yovana po sips. Conversing well. C/o minor pain at incision site. [facility] * Marissa Almonte MD - 04/29/2024 12:58 PM EST [facility]IST 2 - [facility] DAILY PROGRESS NOTE Page [phone] to reach a provider 10/01 Admit Date: 04/26/2024 Encounter Date April 29, 2024 Anticipated Discharge Date: 04/30/2024 Hospital Day: 3 Active Hospital Problems Diagnosis Tachy-jey syndrome Resolved Hospital Problems No resolved problems to display. 24 Hour Events/Subjective: - Feels well today AM. Reports no episodes of dizziness overnight or today AM. Per nursing, noted to have SVT episodes more with exertion, with HR sustaining at times up to 150s. Patient denies chestpain, SOB, palpitations, TOMPKINS, abd pain, n/v Medications: Scheduled Meds: lidocaine 1 patch Transdermal Q24H capsaicin Topical (Top) BID aspirin EC 81 mg Oral Daily atorvastatin 80 mg Oral QPM clopidogreL 75 mg Oral Daily losartan 50 mg Oral Daily spironolactone 25 mg Oral Daily sodium chloride 0.9 % (flush) 5 mL Intravenous BID heparin (porcine) 5,000 Units Subcutaneous 2 times per day Continuous Infusions: PRN Meds:.influenza vaccine (65 yrs +), sodium chloride 0.9 % (flush), lidocaine, nitroGLYcerin, acetaminophen Objective: Last value Range last 24 hrs Temp: 36.6 ??C (97.8 ??F) Temp: [36.5 ??C (97.7 ??F)-36.7 ??C (98 ??F)] Heart Rate: 74 Heart Rate from SpO2: 62 bpm Heart Rate: [60-146] BP: (!) 136/99 BP: (108-139)/(68-99) Resp: 16 Resp: [14-16] SpO2: 96 % SpO2: [94 %-98 %] Height: 152.4 cm (5') Weight: 69 kg (152 lb 1.9 oz) BMI (Calculated): 29.6 BMI Classification: Over Weight Admit weight: 68.77 kg Patient Vitals for the past 168 hrs: Weight 04/29/24 0433 69 kg (152 lb 1.9 oz) 04/28/24 0501 67.6 kg (149 lb 0.5 oz) 04/27/24 0600 68.9 kg (151 lb 14.4 oz) 04/26/24 2250 68.8 kg (151 lb 9.6 oz) Intake/Output Summary (Last 24 hours) at 04/29/2024 1259 Last data filed at 04/29/2024 0830 Gross per 24 hour Intake 150 ml Output 1145 ml Net -995 ml Physical Exam: Physical Exam HENT: Head: Normocephalic and atraumatic. Mouth/Throat: Mouth: Mucous membranes are moist. Eyes: Extraocular Movements: Extraocular movements intact. Neck: Comments: No elevated JVD Cardiovascular: Rate and Rhythm: Regular rhythm. Bradycardia present. Pulmonary: Effort: Pulmonary effort is normal. Abdominal: General: There is no distension. Palpations: Abdomen is soft. Musculoskeletal: Cervical back: Neck supple. Right lower leg: No edema. Left lower leg: No edema. Skin: General: Skin is warm. Neurological: Mental Status: She is alert. Labs: Recent Labs 04/29/24 02004/28/242 04/27/24311 WBC 7.51 8.16 7.99 HGB 13.6 14.8 14.1 HCT 40.1 41.7 40.9 PLATELET 206 203 200 MCV 99.8* 99.3* 98.3* Recent Labs 04/29/24 02004/28/242 04/27/24311 NA 137 141 142 CL 103 105 106 CO2 23 22 24 K 4.3 4.2 4.4 MAGNESIUM 0.87 0.89 0.88 CALCIUM 8.6 8.9 9.3 BUN 30* 25* 22* CREATININE 1.09 0.97 1.00 Coags Recent Labs 04/27/24311 INR 1.0 PT 11.3 Cardiac Markers Recent Labs 04/27/24 0312 TROPONINTHS 14 Endocrine Recent Labs 04/27/24 0312 10/30/23 2205 TSH 2.99 3.35 HA1C -- 5.5 No results for input(s): CHLPL, TRIG, HDL, LDLCHOL, CHOLHDL in the last 168 hours. Recent Labs 04/29/24 0201 04/28/24 0332 04/27/24 0312 GLUCOSE 109 101 112 Telemetry: I have personally reviewed and interpreted the telemetry from the last 24 hours. Resultsshow patient alternating between sinus vs SVT. While in SR, HR ~50s-60s. While in SVT, HR 100s-140s(rate in SVT gradually up trending over last 24 hrs). Imaging: No results found for this visit on 04/26/24 (from the past 24 hour(s)). Assessment: Lyla Goodrich is a 83 y.o. female with a PMH of HFpEF, hx ASCVD (STEMI s/p PCI RCA 10/2023), HTN, hx urinary incontinence, hx tobacco use (not current, no COPD noted) who presented to OSH 04/25/24 with fluctuating HR and dizziness. [place] [facility] for further management and c/f tachybradycardia. EP consulted on arrival. Recommend holding BB as likely culprit of bradycardia. Plan for EP study Tuesday for cathter ablation of paroxysmal SVT. If successful, can potentially avoid PPM placement, otherwise place to proceed with dual chamber PPM placement. Plan: #Paroxysmal SVT #Tachybradycardia - HOLD home metoprolol, likely culprit of bradycardia given HR >50 while BB washing out. - EP consulted - plan for EP study Tuesday. If successful, patient may not require BB going forward. If unsuccessful, plan for PPM placement #Hx ASCVD - continue home ASA, plavix, statin #HTN - continue home spironolactone and losartan - HOLD BB as above #Hx Urinary Incontinence - HOLD home oxybutinin #Chronic Back Pain - APAP PRN - trial lidocaine patch and capsaicin Diet: Daily Healthy Menu Choices/Cardiac diet [place] NPO diet (Give Meds) DVT Prophlaxis: SCDs, SQH Code status: Do NOT Attempt CPR - Inpatient Disposition: Discharge Planning: AM-PAC Basic Mobility Raw Score: 23 PT: OT: PCP Masood Pierson MD [phone] * Murray Deja Abbi - 04/28/2024 5:09 PM EST Spiritual Care Visit Completed * Marissa Almonte MD - 04/28/2024 4:17 PM EST [facility]IST 2 - [facility] DAILY PROGRESS NOTE Page [phone] to reach a provider 10/01 Admit Date: 04/26/2024 Encounter Date April 28, 2024 Anticipated Discharge Date: 04/30/2024 Hospital Day: 2 Active Hospital Problems Diagnosis Tachy-jey syndrome Resolved Hospital Problems No resolved problems to display. 24 Hour Events/Subjective: - Feels well today AM. Reports no episodes of dizziness overnight or today AM. Per nursing, noted to have SVT episodes more with exertion. Patient denies chest pain, SOB, palpitations, TOMPKINS, abd pain, n/v Medications: Scheduled Meds: lidocaine 1 patch Transdermal Q24H capsaicin Topical (Top) BID aspirin EC 81 mg Oral Daily atorvastatin 80 mg Oral QPM clopidogreL 75 mg Oral Daily losartan 50 mg Oral Daily spironolactone 25 mg Oral Daily sodium chloride 0.9 % (flush) 5 mL Intravenous BID heparin (porcine) 5,000 Units Subcutaneous 2 times per day Continuous Infusions: PRN Meds:.influenza vaccine (65 yrs +), sodium chloride 0.9 % (flush), lidocaine, nitroGLYcerin, acetaminophen Objective: Last value Range last 24 hrs Temp: 36.4 ??C (97.6 ??F) Temp: [36.4 ??C (97.6 ??F)-36.8 ??C (98.2 ??F)] Heart Rate: (!) 146 Heart Rate from SpO2: (!) 107 bpm Heart Rate: [56-146] BP: 126/88 BP: (103-128)/(68-88) Resp: 16 Resp: [16] SpO2: 97 % SpO2: [93 %-97 %] Height: 152.4 cm (5') Weight: 67.6 kg (149 lb 0.5 oz) BMI (Calculated): 29.6 BMI Classification: Over Weight Admit weight: 68.77 kg Patient Vitals for the past 168 hrs: Weight 04/28/24 0501 67.6 kg (149 lb 0.5 oz) 04/27/24 0600 68.9 kg (151 lb 14.4 oz) 04/26/24 2250 68.8 kg (151 lb 9.6 oz) Intake/Output Summary (Last 24 hours) at 04/28/2024 1617 Last data filed at 04/28/2024 0800 Gross per 24 hour Intake 250 ml Output 600 ml Net -350 ml Physical Exam: Physical Exam Cardiovascular: Rate and Rhythm: Bradycardia present. Rhythm irregular. Neurological: Mental Status: She is alert. Labs: Recent Labs 04/28/242 04/27/24311 WBC 8.16 7.99 HGB 14.8 14.1 HCT 41.7 40.9 PLATELET 203 200 MCV 99.3* 98.3* Recent Labs 04/28/242 04/27/24311 NA 141 142 CL 105 106 CO2 22 24 K 4.2 4.4 MAGNESIUM 0.89 0.88 CALCIUM 8.9 9.3 BUN 25* 22* CREATININE 0.97 1.00 Coags Recent Labs 04/27/24311 INR 1.0 PT 11.3 Cardiac Markers Recent Labs 04/27/24311 TROPONINTHS 14 Endocrine Recent Labs 04/27/2431110/30/23 2205 TSH 2.99 3.35 HA1C -- 5.5 No results for input(s): CHLPL, TRIG, HDL, LDLCHOL, CHOLHDL in the last 168 hours. Recent Labs 04/28/2433104/27/24311 GLUCOSE 101 112 Telemetry: I have personally reviewed and interpreted the telemetry from the last 24 hours. Resultsshow patient alternating between sinus vs SVT. While in SR, HR ~50s-60s. While in SVT, HR 100s-140s(rate in SVT gradually up trending over last 24 hrs). Imaging: No results found for this visit on 04/26/24 (from the past 24 hour(s)). Assessment: Lyla Goodrich is a 83 y.o. female with a PMH of HFpEF, hx ASCVD (STEMI s/p PCI RCA 10/2023), HTN, hx urinary incontinence, hx tobacco use (not current, no COPD noted) who presented to OSH 04/25/24 with fluctuating HR and dizziness. [place] [facility] for further management and c/f tachybradycardia. EP consulted on arrival. Recommend holding BB as likely culprit of bradycardia. Plan for EP study Tuesday for cathter ablation of paroxysmal SVT. If successful, can potentially avoid PPM placement, otherwise place to proceed with dual chamber PPM placement. Plan: #SVT #?Tachybradycardia - HOLD home metoprolol, likely culprit of bradycardia given HR >50 while BB washing out. - EP consulted - plan for EP study Tuesday #Hx ASCVD - continue home ASA, plavix, statin #HTN - continue home spironolactone and losartan - HOLD BB as above #Hx Urinary Incontinence - HOLD home oxybutinin #Chronic Back Pain - APAP PRN - trial lidocaine patch and capsaicin Diet: Daily Healthy Menu Choices/Cardiac diet ([facility] DVT Prophlaxis: SCDs, SQH Code status: Do NOT Attempt CPR - Inpatient Disposition: Discharge Planning: AM-PAC Basic Mobility Raw Score: 24 PT: OT: PCP Masood Pierson MD [phone] * Izaiah Cain MD - 04/28/2024 9:11 AM EST Images from the original note were not included. Cardiac Electrophysiology Consult Note Patient: Lyla Goodrich : 1940 Attending: Dr. Almonte Code Status: Full Problem List: Patient Active Problem List Diagnosis ','Tachy-jey syndrome Cardiomyopathy, ischemic Overview Note: 10/2023 (at time of NSTE-ACS): EF 64%, basal inferior HK. No VHD Ascending aorta dilatation Overview Note: 10/2023 TTE: ascending 46 mm. Hyperpiesia ASCVD (arteriosclerotic cardiovascular disease) Overview Note: Cardiac Catheterization: (10/2023) RIGHT dominance Indication: NSTE-ACS LVEDP 15 Artery Lesion Intervention LM mild LAD mild LCx Prox 60 Mid 80 3.5 x 15 Andrea 3.5 x 15 Andrea RCA Mid AoCTO. Collats from Cx 4.0 x 38 [place] NB: RCA initially intervened; Cx 2 days later Brief HPI:Lyla Goodrich is a 83 y.o. female with PMH of ASCVD s/p recent RADHA to circ/OM and PCI to RCA ([employer]), HFpEP who presents with fatigue for the past few months and presented because her HR was in the 40's at a visit to her pain doctor.. Interval History: She was seen by EP yesterday who recommended EPS with possible PPM. Overnight patient has has baseline sinus rates to the 60's with SVT to the 120's. Patient was in SVT to the 120'sthat broke spontaneously and also during our interview today. She had no symptoms with this. Only symptom is tiredness/fatigue ROS: All others negative except as stated in the HPI. Vitals: Last Set of Vitals and range of vitals over past 24 hours: Last value Range last 24 hrs Temperature Temp: 36.6 ??C (97.9 ??F) Temp: [36.4 ??C (97.6 ??F)-36.8 ??C (98.3 ??F)] Heart Rate Heart Rate: (!) 118 Heart Rate: [56-118] Blood Pressure BP: 121/85 BP: (103-140)/(67-85) Respiratory Rate Resp: 16 Resp: [16-18] SpO2 SpO2: 97 % SpO2: [93 %-97 %] Physical Exam: General- No acute distress, sitting comfortably in exam room chair HEENT- Head atraumatic, normocephalic Skin- Warm and dry Neck- No JVD noted Cardiovascular- S1/S2 regular rate and rhythm. No murmur, rub or gallop Lungs- Clear to auscultation bilaterally Extremities- Pulses equal bilaterally. No edema noted Neuro- A&Ox3 Telemetry- Frequent runs of SVT Laboratory (Last 24 Hours): Lab Results Component Value Date WBC 8.16 04/28/2024 WBC 8.3 11/03/2023 HGB 14.8 04/28/2024 HGB 13.1 11/03/2023 HCT 41.7 04/28/2024 HCT 38.0 11/03/2023 PLATELET 203 04/28/2024 PLATELET 181 11/03/2023 Recent Labs 04/27/24 0312 INR 1.0 Lab Results Component Value Date NA 141 04/28/2024 NA 139 11/03/2023 K 4.2 04/28/2024 K 4.0 11/03/2023 CL 105 04/28/2024 CL 108 (H) 11/03/2023 BUN 25 (H) 04/28/2024 BUN 13 11/03/2023 CREATININE 0.97 04/28/2024 CREATININE 0.83 11/03/2023 MAGNESIUM 0.89 04/28/2024 MAGNESIUM 0.90 11/03/2023 Diagnostics: Transthoracic Echo 10/2023 -The left ventricle is of normal [...] -There is no prior echocardiogram for comparison. Sedation evaluation: Mallampati class: II: tonsillar pillars are blocked by the tongue ASA: 2: Patient with mild systemic disease Assessment: 1. Ms. Goodrich is a 83 y/o with PMH of ASCVD s/p recent RADHA to circ/OM and PCI to RCA ([employer]), HFpEP who presents with fatigue for the past few months who was found to have SVT with baseline sinus ratesin the 60's. Plan at this time is an EP study and possible SVT ablation on Tuesday (not currently scheduled, she is an add-on). Depending on the findings of the study, or if we are unable to ablate the SVT patient may ultimately receive a dual chamber pacemaker to allow us to increase AV betsy blocking agents. The patient signed a consent form today for electrophysiology study, after we discussed the overallsuccess rate of 90% of curing the tachycardia in a single session, and infrequent risks including iatrogenic heart block requiring permanent pacemaker implantation (risk less than 1:100 with cryoablation), rare CVA/LA/ if left heart catheterizationis required, DVT and rare serious internal bleeding including cardiac perforation. In the event SVT cannot be ablated, patient signed a separate consent for a left side dual sided pacemaker. Benefits and risks of device implantation discussed, including but not limited to infectionrequiring explantation of all hardware, bleeding requiring blood transfusion, damage to any existing leads, hemothorax, pneumothorax requiring chest tube placement, vascular or myocardial damage/perfo ration requiring endovascular or surgical repair, tamponade, lead dislodgment, DVT requiring coumadin anticoagulation, device recall, post-device syncope and the possible need for an early surgical revision. The use of sedation and/or anesthesia was discussed, involving additional risks of respiratory depression, hypoxia, and hypotension. Pt advised that acute complications are avoided approx 95%of the time. Post-procedure limitations including activity restriction (arm lifting and movement, carrying) and driving restrictions were discussed with the patient. The patient's questions were answered and written consent was obtained. Would not be aggressive in treating SVT if patient goes into it over the weekend. Please avoid AV betsy blocking agents due to her baseline sinus rates in the 60's and patient tends to be asymptomatic and breaks on her own. Would attempt vagal maneuvers as a first line therapy but would be also reasonable for no intervention if she remains asx and hds. Plan: 1. Schedule for EPS and possible SVT ablation. If we cannot ablate plan for left sided dual chamberpacemaker 2. Antibiotic therapy: Ancef (allergy to penicillin but allergy is itching) 3. Sedation: MAC with anesthesia due to back pain 4. Anticoagulation plan: Hold morning DVT ppx 5. NPO at 0005 on 04/30/24 6. Would not aggressively treat SVT over the weekend. Vagal maneuvers and watchful waiting as long as patient is asx and hds. Izaiah Cain MD 04/28/2024 Telecommunications Repairer Pager: [phone] Associated attestation - Dre Powers MD - 04/28/2024 11:38 AM EST Cardiac Electrophysiology Attending Addendum: The patient was seen, interviewed and examined by me, and Dr. Cain's associated note was reviewed by me and agreed with. Dr. Carrasco's initial consult also reviewed. Patient admitted w/ tachy-jey syndrome but not much jey off of beta-blockers, would prefer to avoid a pacemaker if possible. Therefore decision had been made to perform electrophysiology study with view towards catheter ablation of paroxysmal supraventricular tachycardia., and if uccessful potentially avoid/defer a pacemaker - otherwise, dual-chamber pacemaker. Rationales for, intended benefits and potential risk of planned procedures reviewed. (Including risk of heart block requiring pacemaker). The patient indicatedunderstanding and agreement with the plan. Informed consent signed and placed in chart. As pt minimally symptomatic at rest , please avoid betsy agents and allow permissive tachycardia atpresent so as to minimize suppression of tachycardia at EPS. Dre Powers MD, PhD, [facility] Cardiac Electrophysiology * Peter Najera RN - 04/28/2024 4:54 AM EST No acute events overnight. Patient was in Sinus to Sinus Tach which can reach as high as the 140s with activity. Resting HR is in the 50s-60s. Otherwise the night was uneventful. documented in this encounter H&P Notes * Izaiah King MD - 04/30/2024 8:02 AM EST EP FELLOW INPATIENT PRE PROCEDURE H&P Referring Provider: GISELE COLES XAVIER L RAMACHANDRA, NAYANA Attending Provider: Dre Powers MD PhD Planned Procedure: EP study and supraventricular tachycardia ablation and/or permanent pacemaker implant Background and rationale for the procedure: Lyla Goodrich is a 83 y.o. woman with ASCVD s/p recentDES to circ/OM and PCI to RCA ([employer]), HFpEP who presents with fatigue for the past few months and presented because her HR was in the 40's at a visit to her pain doctor.. presents with fatigue for thepast few months who was found to have SVT with baseline sinus rates in the 60's. 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 Procedural plan: Access will be bilateral femoral vein x2 for EPS Type of device (if required): Transvenous dual chamber pacemaker Site of device Left sided subcutaneous NPO for at least 8 hours Heparin products appropriately withheld Consent signed Pre-procedural checklist completed Anesthesia: Anesthesia support as per the anesthesiology service Anticoagulation status: No chronic anticoagulation on board. On DAPT for a recent coronary stent. Lab Results Component Value Date PT 11.3 04/27/2024 PT 12.6 (H) 10/31/2023 PTT 67 (H) 10/31/2023 Infection risk & Prophylaxis: No new cough, no fevers, no chills. Plan to give Cefazolin prior to procedure. (Previously tolerated cefpodoxime and ceftriaxone) Allergies Allergen Reactions Hydrocodone CIS - Nausea/Vomiting Hydrocortisone CIS - swelling Oxycodone-Acetaminophen CIS - Nausea/Vomiting Prednisone swelling Penicillins Itching Post-op Plan: [facility] Interval history: As documented by primary team, confirmed Physical Exam: Patient Vitals for the past 24 hrs: Temp Heart Rate From SP02 Pulse Resp BP SpO2 O2 Device 04/29/24 0808 36.5 ??C (97.7 ??F) 62 bpm 60 14 131/68 96 % RA 04/29/24 0956 -- -- -- -- 137/84 -- -- 04/29/24 1145 36.6 ??C (97.8 ??F) -- 74 16 (!) 136/99 -- RA 04/29/24 1545 36.4 ??C (97.6 ??F) 64 bpm 67 20 123/59 95 % RA 04/29/24 1949 36.4 ??C (97.6 ??F) 65 bpm 65 20 115/74 97 % RA 04/29/24 2340 36.8 ??C (98.2 ??F) 58 bpm 69 19 124/54 97 % RA 04/30/24 0500 36.6 ??C (97.8 ??F) 55 bpm 55 20 115/71 98 % RA 04/30/24 0732 36.4 ??C (97.6 ??F) (!) 104 bpm (!) 104 20 140/84 98 % -- 04/30/24 0754 -- 60 bpm 51 -- 144/68 -- -- Well appearing with no acute symptoms Normal jugular venous pulse Moist mucosae without lesions Regular S1/S2 with no murmur Chest wall and shoulders without deformity, prior trauma, radiation or surgery Lungs are clear throughout Palpable femoral pulses bilaterally No peripheral edema, no open wounds or ulcers No current facility-administered medications on file prior to encounter. Current Outpatient Medications on File Prior to Encounter Medication Sig Dispense Refill oxyBUTYnin (Ditropan) 5 mg tablet Take 5 mg by mouth. aspirin EC 81 mg EC (DR) tablet Take 1 tablet by mouth daily. 30 tablet 3 atorvastatin (Lipitor) 80 mg tablet Take 1 tablet by mouth every evening. 90 tablet 3 clopidogreL (Plavix) 75 mg tablet Take 1 tablet by mouth daily. 90 tablet 3 losartan (Cozaar) 50 mg tablet Take 1 tablet by mouth daily. 90 tablet 3 metoprolol succinate XL (Toprol-XL) 25 mg ER 24 hr tablet Take 0.5 tablets by mouth daily. 30 tablet 12 nitroGLYcerin (Nitrostat) 0.[address] 1 tablet under the tongue every 5 minutes as needed for Chest pain. 90 tablet 12 spironolactone (Aldactone) 25 mg tablet Take 1 tablet by mouth daily. 90 tablet 3 CIS Free Text Med - vitamin b 125 complex ASCORBIC ACID (VITAMIN C ORAL) CYANOCOBALAMIN, VITAMIN B-12, (VITAMIN B-12 ORAL) CALCIUM ORAL Lab Results Component Value Date WBC 6.98 04/30/2024 HGB 13.4 04/30/2024 HCT 39.0 04/30/2024 MCV 99.0 (H) 04/30/2024 PLATELET 192 04/30/2024 Lab Results Component Value Date NA 139 04/30/2024 NA 139 11/03/2023 K 4.0 04/30/2024 K 4.0 11/03/2023 CL 106 04/30/2024 CL 108 (H) 11/03/2023 CO2 22 04/30/2024 CO2 19 (L) 11/03/2023 BUN 22 (H) 04/30/2024 BUN 13 11/03/2023 CREATININE 0.89 04/30/2024 CREATININE 0.83 11/03/2023 GLUCOSE 111 04/30/2024 GLUCOSE 105 11/03/2023 CALCIUM 8.6 04/30/2024 CALCIUM 8.2 (L) 11/03/2023 ESTGFR 64 04/30/2024 ESTGFR 69 11/03/2023 Lab Results Component Value Date MAGNESIUM 0.89 04/30/2024 * Izaiah Monroe MD - 04/27/2024 2:12 AM EST Patient Name: Lyla Goodrich Patient Age: 83 y.o. Birthdate: 1940 Admit date: 04/26/2024 Attending Physician: Jose Juan Reynoso MD Chief complaint: I called the healthcare center on Tuesday afternoon (04/25/2024, 5:00pm) and told them my heart was beating 103 times a minute and my blood pressure was 142/91 on Tuesday afternoon (04/24/2024, 3:27pm). Earlier in the day (04/24/2024, 5:03am), my heart was beating 47 times a minute and my blood pressure was 144/70 (04/24/2024, 5:03am). I felt dizzy off and on all day on Tuesday (04/24/2024) and all day on Tuesday (04/25/2024), so they told me to go to [facility] ER to get checked out, so I went there, and sent me to [facility] to get a pacemaker. I feel fine right now. No complaints. I haven't eaten all day long. Can I have some dinner now, please? History of Present Illness: 83 years old, right-hand dominant female with PMH of DNR/DNI @ home, overweight with BMI 29.61 (height 152.4 cm; weight 68.8 kg), s/p 3 rotator cuff tear repairs, former tobacco abuse with no subsequent diagnosis of COPD, not on home O2 or home steroids, chronic peripheral monocytosis with M% range, 11.9% (11/01/2023, 3:09am) to 16.9% (11/03/2023, 3:46am), urinary incontinence on anti-cholinergic oxybutyin 5mg PO daily, HTN on metoprolol XL 12.5mg PO daily,ischemic cardiomyopathy s/p TTE (10/31/2023, 7:57am, [facility] Dr. Raymond Warren) with hypokinesis of basal inferior wall segment, LV EF 64%, and no obstruction to LV outflow; aortic root dilatation @3.9 cm and ascending aorta dilatation @ 4.6 cm, and CAD s/p cardiac catheterization #1 (10/30/2023,4:25pm, [facility] [place] [facility] Rosa Menjivar, who reported: The patient subsequently presented to [facility] (10/30/2023) as a walk-in for further evaluation of chest pain. Upon presentation to outside hospital, the patient was afebrile, heart rate 71, hypertensive (BP 217/68), and was saturating 96% in room air. CBC within normal limits. CMP significant for creatinine of 1.2 and BUN of 19. Troponin was negative x 2. Initial ECG was concerning for possible STEMI with inferior JAMIE, although on repeat, her JAMIE resolved. Cardiology at [facility] [place] consulted for transfer; the patient was loaded with aspirin 324 mg and ticagrelor 180 mg, started on a heparin drip, and given nitroglycerin with improvement in chest pain. Upon arrival to [facility], the patient was taken directly to the Animal Services Officer. Two lesions were discovered: one in the prox RCA (felt to almost be a BOAT LOADER HELPER but they were able to wire, balloon, and stent) and a second that was not yet addressed in the Lcx/OM (plan for staged PCI on 11/01/2023). On post-cath assessment, the patient reported being chest pain-free and asymptomatic.Two lesions were discovered: one in the prox RCA (felt to almost be a BOAT LOADER HELPER but they were able to wire, balloon, and stent) and a second that was not yet addressed in the Lcx/OM (plan for staged PCI). On post-cath assessment, the patient reported being chest pain-free and asymptomatic. Patient subsequently underwent cardiac catheterization #2 (11/01/2023, 1:33pm, [facility] [place] Rosa Menjivar, who reported: Coronary Angiography: Dominance: Right Left Main There was mild diffuse (<=25% stenosis) disease of the entire vessel segment of the left main artery. The distal segment of the left main had a calcified single discrete 40% stenosis. Distal flow was normal. Left Anterior Descending There was mild diffuse (<=25% stenosis) disease of the entire vessel segment of the left anterior descending artery (LAD). Left Circumflex There was a 60% stenosis of the proximal segment of the left circumflex artery (LCX). The mid segment of the LCX had 80% stenosis. There was a 40% stenosis of the ostial segment of the first obtuse marginal branch (OM1) of the LCX. Right Coronary Artery This vessel was not injected. Indication for Intervention: Staged PCI was performed for multivessel disease. Intervention Summary: Left Circumflex Artery Proximal 60% Stent insertion was performed on the 60% stenosis in the proximal segment of the LCX. This was a de bertin lesion. According to the ACC/AHA classification system, this lesion was a type C moderate risk lesion. Primary prevention of restenosis was the indication for stent insertion. This was the culprit lesion. A guidewire was placed across this lesion. Vessel flow pre intervention was SAMIRA 3. Lesion length was 14mm. Stent insertion was accomplished through a 6 Fr. EBU 4.5 guide. The lesion was predilated with a 3.00mm balloon with a maximum inflation pressure of 14 atmospheres. A premounted 3.50 x 15 mm [place] (RADHA) was deployed with a maximum inflation pressure of 14 atmospheres. Following stent deployment, the lesion was dilated using a 3.50mm balloon with a maximum inflation pressure of 13 atmospheres. The final outcome was defined as successful. There was no residual stenosis following this intervention. The final SAMIRA flow was 3. Mid 80% Stent insertion was performed on the 80% stenosis in the mid segment of the LCX. This was a de bertin lesion. This lesion was designated a type C moderate risk lesion based on ACC/AHA classification system. Primary prevention of restenosis was the indication for stent insertion. This was the culprit lesion. A guidewire was placed across this lesion. Vessel flow pre intervention was SAMIRA 3. Lesion length was 15mm. This lesion was contiguous with LCX-proximal. Stent insertion was accomplished through a 6 Fr. EBU 4.5 guide. The lesion was predilated with a 3.00mm EUPHORA 15 MM balloon with a maximum inflation pressure of 14 atmospheres. A premounted 3.50 x 15 mm [place] (RADHA) was deployed with a maximum inflation pressure of 12 atmospheres. The final outcome was defined as successful. There was no residual stenosis following this intervention. The final SAMIRA flow was 3. Patient has also been diagnosed with bradycardia in the past; to this end, patient has recorded at home on [id number] her pulse and BP on 04/24/2024: HR 47, BP 144/ 70 (5:03am). HR 52, BP 156/ 74 (8:00am). HR 103, BP 142/ 91 (3:27pm). HR 105, BP 141/124 (time not recorded). HR 55, BP 153/ 82 (10:25pm). Patient concedes to feeling lightheaded for up to 10-15 minutes at a time during the day and evening hours when my heart slows down to the 40s, but I don't pass out or fall down on the ground. Patient also denies antecedent/coincident chest pains, palpitations, pleurisy, fevers, chills, diaphoresis, SOB/DIOR, cough, wheeze, sore throat, hemoptysis, nausea, vomiting, diarrhea, abdominal pain, pelvic pain, flank pain, headaches, visual changes, hearing changes, sick contacts, travel history, or food/drug ingestions novel/new on admission date 04/26/2024. 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 In [facility] ER, patient was afebrile @ 36.4 degrees Celsius, HR 56, RR 14, O2 sat 94% on room air, and BP 123/73 (04/25/2024, 3:33pm). Labs in [facility] ER were noted for: Troponin #1 17 ng/L (04/24/2024, 7:37pm). Troponin #2 16 ng/L (04/24/2024, 9:48pm). Troponin #3 21 ng/L (04/25/2024, 5:30am). Mg 1.8 mg/dL (04/24/2024, 5:37pm). Mg 1.7 mg/dL (04/25/2024, 5:30am). Na 146, BUN 20, creatinine 1.1 (04/25/2024, 5:30am). WBC 6.65, no differential, Hb 13.5, platelet 179 (04/25/2024, 5:30am). WBC 6.38, N45 L34 M14 E6 B1, Hb 13.3, platelet 179 (04/26/2024, 5:36am). U/A: LE-, nitrite- (04/24/2024, 7:37pm). COVID- (04/24/2024, 8:52pm). Additional testing in [facility] included: EKG: none performed in [facility] Patient was subsequently diagnosed with the following diagnoses: Tachy-jey syndrome. Acute hypomagnesemia with Mg 1.7 mg/dL (04/25/2024, 5:30am). Acute hypernatremia with Na 146 mmol/L (04/25/2024, 5:30am). Chronic peripheral monocytosis with M% range, 11.9% (11/01/2023, 3:09am) to 16.9% (11/03/2023, 3:46am). To address #1, patient was subsequently placed on telemetry and held off her home-scheduled metoprolol XL 12.5mg PO daily as patient awaited transfer to [facility] for anticipated CARDS Service evaluation and anticipated PPM placement in the 04/27/2024 am. To address #2, patient received no magnesium supplement(s) and continued her home-scheduled spironolactone 25mg PO daily (04/25/2024, 8:30am, 04/26/2024, 7:56am). To address #3, patient received no IV fluid rehydration and continued continued her home-scheduled spironolactone 25mg PO daily (04/25/2024, 8:30am, 04/26/2024, 7:56am). To address #4, patient was observed. Patient was subsequently transferred from [facility] to [facility]468[facility]A on 04/26/2024 and admitted to the inpatient Cardiology Hospitalist Service on 04/26/2024 with the following diagnoses: Tachy-jey syndrome. Acute hypomagnesemia with Mg 1.7 mg/dL (04/25/2024, 5:30am). Acute hypernatremia with Na 146 mmol/L (04/25/2024, 5:30am). Chronic peripheral monocytosis with M% range, 11.9% (11/01/2023, 3:09am) to 16.9% (11/03/2023, 3:46am). Dizziness of unclear etiology, but probably due in part to a combination of #1, #2, #3 above, as well as home-scheduled anti-cholinergic oxybutynin 5mg PO daily, and/or home-scheduled metoprolol XL 12.5mg PO daily. To address #1, patient was continued on telemetry and held off her home- scheduled metoprolol XL 12.5mg PO daily as patient awaited transfer to [facility] for anticipated CARDS Service evaluation and anticipated PPM placement in the 04/27/2024 am. To address #2, patient is being held off her home-scheduled spironolactone 25mg PO daily (last administered at [facility] on 04/25/2024, 8:30am; 04/26/2024, 7:56am), given the potential for diuretic- mediated magne-uresis, as patient awaits repeat Mg level testing (04/27/2024, 3:20am). To address #3, patient is being held off her home-scheduled spironolactone 25mg PO daily (last administered at [facility] on 04/25/2024, 8:30am; 04/26/2024, 7:56am), given the potential for diuretic- mediated natri-uresis, as patient awaits repeat Na level testing (04/27/2024, 3:20am). To address #4, patient has been advised to follow up with her PCP Dr. Masood Pierson ([place], [place]) to consider outpatient CT chest/abd/pelvis with IV contrast to screen for undiagnosed malignancy or solicitation of outpatient Heme-Onc Service evaluation of chronic peripheral monocytosis as the differential for chronic peripheral monocytosis in the elderly population is: (1) leukemia, lymphoma, or other solid tumor(s); (2) acute viral syndrome. While bacterial infections including TB, tularemia, brucellosis, leptospirosis, listeriosis, and acute barrow valve endocarditis can cause acute peripheralmonocytosis, this patient has no stigmata on physical exam to suggest infection with any of the microbes causing such bacterial infections. In addition, I cannot exclude the possibility of acute viral syndrome, and hence, I have ordered influenza A/B, and RVS rapid antigen testing (04/27/2024, 3:45am). Cf., COVID- (04/24/2024, 8:52pm). To address #5, patient was immediately discontinued from her home-scheduled oxybutynin 5mg PO dailygiven the strong anti-cholinergic properties of this medication and its relative contra-indication in the elderly population (cf., 2022 [place] [employer]'s Beers Criteria for Potentially Inappropriate Medications in the Elderly). Patient also continues to be held off her home- scheduled metoprolol XL 12.5mg PO daily while in [facility]468[facility]. Past medical history: As above. Past surgical history: As above. Family history: Patient's father is at 85 years of age from CVA in the absence of DM or tobacco abuse. Patient does not know if her father suffered from HTN or CAD. Family history: Patient's mother is at 95 years of age from natural causes. Social history: Patient used to smoke 0.5 pack of cigarettes per day from 19 years of age to 41 years of age. Patient quit smoking 42 years ago; patient has never been diagnosed with COPD, and does not utilize oxygen or steroids at home. Patient denies alcohol and illicit drug use. 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 Patient is happily retired. Patient was to her for 14 years before ; together, they have 3 daughters (aged 57 years, 62 years, and 69 years), all a live and well. Patient lives alone in her own first floor apartment in [place], [place], with just 1 step to traverse before entering her first floor apartment. Patient ambulates without assistance from a cane, walker, or wheelchair and drives her own car. [facility] direct [facility] from [facility] today, 04/26/2024. Medications at home: ASA 81mg PO daily. Atorvastatin 80mg PO qhs. Plavix 75mg PO daily. Losartan 50mg PO daily. Metoprolol XL 12.5mg PO daily. Oxybutynin 5mg PO daily. Spironolactone 25mg PO daily. Allergies: Hydrocodone (N/V). Hydrocortisone (swelling). Percocet (N/V). PCN (pruritus). NKFA. Review of Systems: As above. Physical exam: 36.4 degrees Celsius, RR 16, O2 sat 96% on room air, and BP 130/100 (04/26/2024, 10:44pm). 36.4 degrees Celsius, RR 16, O2 sat 96% on room air, and BP 147/ 78 (04/26/2024, 11:16pm). General appearance: Comfortable, coherent, cooperative. Wide awake and alert, not confused, lethargic, or obtunded. Patient speaks in complete, fluent, and articulate sentences without pause, interruption, cough, or wheeze. HEENT: NC/AT. EOMI. PERRL. No Benz spots, nystagmus, gaze paresis, anisocoria, miosis, mydriasis, chemosis, hyphema, scleral injection, conjunctivitis, or pterygium. No otorrhea. No rhinorrhea. No pharyngeal erythema or pharyngeal discharge. Neck: Supple, no stridor, bruit, goiter, JVD, or HJR. Chest: Symmetric rise and fall with respirations. Non-tender. Lungs: Clear to auscultation and percussion. No audible expiratory wheeze, egophony, pectoriloquy, increase in tactile fremitus, or flatness/dullness to percussion at the bases. CV: RRR, S1 and S2 noted. No S3 or S4 summation gallop. No tripartite friction rub. Grade II/ early systolic murmur @ LLSB without radiation to the carotids, axilla, or back, and which remains invariant in regards to the respiratory cycle. Abd: Soft, non-tender, non-distended. No organomegaly. Bowel sounds auscultated in all 4 quadrants.No rebound, guarding, or Valdivia's sign. Ext: No clubbing, cyanosis, or edema. 2+ pulses bilaterally. Skin: No decubitus ulcer, exanthem, or enanthem. No splinter hemorrhages, Janeway lesions, or Oslernodes. Neurology: Alert and oriented in regards to person, place, time, and situation. DTR+. 5/5 motor strength in all 4 extremities, both proximally and distally. No tremors or tics. Urology: No hamlin. No urethral discharge. Labs in [facility]: U/A: LE-, nitrite- (, 12:06am). WBC 7.99, N54 L28 M12 E4 B1, Hb 14.1, platelet 200 (04/27/2024, 3:12am). ASSESSMENT: 83 years old, right-hand dominant female with PMH of DNR/DNI @ home, overweight with BMI 29.61 (height 152.4 cm; weight 68.8 kg), s/p 3 rotator cuff tear repairs, former tobaccoabuse with no subsequent diagnosis of COPD, not on home O2 or home steroids, chronic peripheral monocytosis with M% range, 11.9% (11/01/2023, 3:09am) to 16.9% (11/03/2023, 3:46am), urinary incontinence on anti-cholinergic oxybutyin 5mg PO daily, HTN on metoprolol XL 12.5mg PO daily, ischemic cardiomyopathy s/p TTE (10/31/2023, 7:57am, CARDS Dr. Raymond Warren) with hypokinesis of basal inferiorwall segment, LV EF 64%, and no obstruction to LV outflow; aortic root dilatation @ 3.9 cm and ascending aorta dilatation @ 4.6 cm, and CAD s/p cardiac catheterization #1 (10/30/2023, 4:25pm, [facility] [place] [facility]. Rosa Menjivar, who reported: The patient subsequently presented to [facility] (10/30/2023) as a walk-in for further evaluation of chest pain. Upon presentation to outside hospital, the patient was afebrile, heart rate 71, hypertensive (BP 217/68), and was saturating 96% in room air. CBC within normal limits. CMP significant for creatinine of 1.2 and BUN of 19. Troponin was negative x 2. Initial ECG was concerning for possible STEMI with inferior JAMIE, although on repeat, her JAMIE resolved. Cardiology at [facility] [place] consulted for transfer; the patient was loaded with aspirin 324 mg and ticagrelor 180 mg, started on a heparin drip, and given nitroglycerin with improvement in chest pain. Upon arrival to [facility], the patient was taken directly to the Animal Services Officer. Two lesions were discovered: one in the prox RCA (felt to almost be a BOAT LOADER HELPER but they were able to wire, balloon, and stent) and a second that was not yet addressed in the Lcx/OM (plan for staged PCI on 11/01/2023). On post-cath assessment, the patient reported being chest pain-free and asymptomatic.Two lesions were discovered: one in the prox RCA (felt to almost be a BOAT LOADER HELPER but they were able to wire, balloon, and stent) and a second that was not yet addressed in the Lcx/OM (plan for staged PCI). On post-cath assessment, the patient reported being chest pain-free and asymptomatic. Patient subsequently underwent cardiac catheterization #2 (11/01/2023, 1:33pm, [facility] [place]. Rosa Menjivar, who reported: Coronary Angiography: Dominance: Right Left Main There was mild diffuse (<=25% stenosis) disease of the entire vessel segment of the left main artery. The distal segment of the left main had a calcified single discrete 40% stenosis. Distal flow was normal. Left Anterior Descending There was mild diffuse (<=25% stenosis) disease of the entire vessel segment of the left anterior descending artery (LAD). Left Circumflex There was a 60% stenosis of the proximal segment of the left circumflex artery (LCX). The mid segment of the LCX had 80% stenosis. There was a 40% stenosis of the ostial segment of the first obtuse marginal branch (OM1) of the LCX. Right Coronary Artery This vessel was not injected. Indication for Intervention: Staged PCI was performed for multivessel disease. Intervention Summary: Left Circumflex Artery Proximal 60% Stent insertion was performed on the 60% stenosis in the proximal segment of the LCX. This was a de bertin lesion. According to the ACC/AHA classification system, this lesion was a type C moderate risk lesion. Primary prevention of restenosis was the indication for stent insertion. This was the culprit lesion. A guidewire was placed across this lesion. Vessel flow pre intervention was SAMIRA 3. Lesion length was 14mm. Stent insertion was accomplished through a 6 Fr. EBU 4.5 guide. The lesion was predilated with a 3.00mm balloon with a maximum inflation pressure of 14 atmospheres. A premounted 3.50 x 15 mm [place] (RADHA) was deployed with a maximum inflation pressure of 14 atmospheres. Following stent deployment, the lesion was dilated using a 3.50mm balloon with a maximum inflation pressure of 13 atmospheres. The final outcome was defined as successful. There was no residual stenosis following this intervention. The final SAMIRA flow was 3. Mid 80% Stent insertion was performed on the 80% stenosis in the mid segment of the LCX. This was a de bertin lesion. This lesion was designated a type C moderate risk lesion based on ACC/AHA classification system. Primary prevention of restenosis was the indication for stent insertion. This was the culprit lesion. A guidewire was placed across this lesion. Vessel flow pre intervention was SAMIRA 3. Lesion length was 15mm. This lesion was contiguous with LCX-proximal. Stent insertion was accomplished through a 6 Fr. EBU 4.5 guide. The lesion was predilated with a 3.00mm EUPHORA 15 MM balloon with a maximum inflation pressure of 14 atmospheres. A premounted 3.50 x 15 mm [place] (RADHA) was deployed with a maximum inflation pressure of 12 atmospheres. The final outcome was defined as successful. There was no residual stenosis following this intervention. The final SAMIRA flow was 3. Patient has also been diagnosed with bradycardia in the past; to this end, patient has recorded at home on [id number] her pulse and BP on 04/24/2024: HR 47, BP 144/ 70 (5:03am). HR 52, BP 156/ 74 (8:00am). HR 103, BP 142/ 91 (3:27pm). HR 105, BP 141/124 (time not recorded). HR 55, BP 153/ 82 (10:25pm). Patient concedes to feeling lightheaded for up to 10-15 minutes at a time during the day and evening hours when my heart slows down to the 40s, but I don't pass out or fall down on the ground. Patient was subsequently transferred from [facility] to [facility]468[facility]A on 04/26/2024 and admitted to the inpatient Cardiology Hospitalist Service on 04/26/2024 with the following diagnoses: Tachy-jey syndrome. 2. Acute hypomagnesemia with Mg 1.7 mg/dL (04/25/2024, 5:30am). 3. Acute hypernatremia with Na 146 mmol/L (04/25/2024, 5:30am). 4. Chronic peripheral monocytosis with M% range, 11.9% (11/01/2023, 3:09am) to 16.9% (11/03/2023, 3:46am). 5. Dizziness of unclear etiology, but probably due in part to a combination of #1, #2, #3 above, aswell as home-scheduled anti-cholinergic oxybutynin 5mg PO daily, and/or home-scheduled metoprolol XL 12.5mg PO daily. To address #1, patient was continued on telemetry and held off her home- scheduled metoprolol XL 12.5mg PO daily as patient awaited transfer to [facility] for anticipated CARDS Service evaluation and anticipated PPM placement in the 04/27/2024 am. To address #2, patient is being held off her home-scheduled spironolactone 25mg PO daily (last administered at [facility] on 04/25/2024, 8:30am; 04/26/2024, 7:56am), given the potential for diuretic- mediated magne-uresis, as patient awaits repeat Mg level testing (04/27/2024, 3:20am). To address #3, patient is being held off her home-scheduled spironolactone 25mg PO daily (last administered at [facility] on 04/25/2024, 8:30am; 04/26/2024, 7:56am), given the potential for diuretic- mediated natri-uresis, as patient awaits repeat Na level testing (04/27/2024, 3:20am). To address #4, patient has been advised to follow up with her PCP Dr. Masood Pierson ([place], [place]) to consider outpatient CT chest/abd/pelvis with IV contrast to screen for undiagnosed malignancy or solicitation of outpatient Heme-Onc Service evaluation of chronic peripheral monocytosis as the differential for chronic peripheral monocytosis in the elderly population is: (1) leukemia, lymphoma, or other solid tumor(s); (2) acute viral syndrome. While bacterial infections including TB, tularemia, brucellosis, leptospirosis, listeriosis, and acute barrow valve endocarditis can cause acute peripheralmonocytosis, this patient has no stigmata on physical exam to suggest infection with any of the microbes causing such bacterial infections. In addition, I cannot exclude the possibility of acute viral syndrome, and hence, I have ordered influenza A/B, and RVS rapid antigen testing (04/27/2024, 3:45am). Cf., COVID- (04/24/2024, 8:52pm). To address #5, patient was immediately discontinued from her home-scheduled oxybutynin 5mg PO dailygiven the strong anti-cholinergic properties of this medication and its relative contra-indication in the elderly population (cf., 2022 [place] [employer]'s Beers Criteria for Potentially Inappropriate Medications in the Elderly). Patient also continues to be held off her home- scheduled metoprolol XL 12.5mg PO daily while in [facility]. documented in this encounter Miscellaneous Notes * Care Management - Amy Bach RN - 05/01/2024 11:36 AM EST The Patient has been provided a list of Home Health Agencies/DME vendors which serve their preferred geographic area. A letter describing our affiliations was reviewed with them and they were educated about their right to choose where referrals are placed. Provided patient with [facility] Star Quality Rating for Home care hand out. Patient requests referral to : [facility] [address] [place] [id number] Expected date of discharge: 05/01/24. Referral routed to the Arts Manager for matching with agency/vendor and to provide any required information. * Brief Op Note - Dre Powers MD - 04/30/2024 2:08 PM EST Brief Operative Note Patient Name: Lyla Goodrich : [id number] MR#: [id number] Case Date: 04/30/2024 Surgeon: Surgeons and Role: * Dre Powers MD - Primary * Izaiah King MD - Fellow - Assisting Preoperative diagnosis: supraventricular tachycardia, tachy-jey syndrome, coronary artery disease Postoperative diagnosis: * No post-op diagnosis entered * Procedures: 1) electrophysiology study with right atrial 3D electroanatomical mapping and radiofrequency ablation ablation of atrial tachcycardia focus 2) dual-chamber .pacemaker implantation (left-sided) Anesthesia: MAC Findings: atrial tachycardia focus mapped to SVC-RA junction - ablated w/ partial success (acutely diminished burden and duration of episodes) Left sided dual chamber pacemaker implanted in light of incomplete AT suppression, evidence of sinus node dysfunction and additional indication for beta-kristy in coronary artery disease. Complications: none Estimated Blood Loss: 30 mL* No values recorded between 04/30/2024 9:00 AM and 04/30/2024 2:08 PM * Specimens removed during surgery: none Fluids: Intraprocedure Crystalloid Total None PRBCs: none (See Anesthesia Record/Report for Other Blood Products) Urine Output: (no urine output recorded) Drains: none Disposition/ Condition awoken from sedation and broaught to PACU in good and stable condition (Please see the Surgical Encounter Summary for any Implant and Specimen details pertinent to this patient.) Surgical Infection Prevention Bundle Used? N/A I was present for and directly participated in all herman portion of these procedures. The patient's daughter Iris was updated by telephone following both the ablation and pacemaker implantation. Dre Powers MD, PhD, [facility] Cardiac Electrophysiology * Plan of Care - Ajay Garcia RN - 04/29/2024 6:26 PM EST SHIFT EVALUATION NOTE: SHIFT SUMMARY: Pt AOx4. Bed/chair alarm maintained for high fall risk. VSS on RA, assessment as charted. Pt deniesCP or SOB. NSR/ST w/ first degree AVB on tele, see scanned documents. See flowsheets for I&O. Uneventful shift for pt, call abdalla within reach. PLAN MOVING FORWARD: NPO @ 0005 (04/30) for ablation Continue to monitor per protocol Discharge planning as appropriate INDIVIDUALIZED FALL PREVENTION INTERVENTIONS: Patient-specific fall risk factors per assessment: [current deficits]: Limited mobility, tele wires, SpO2 monitor wire, unfamiliar environment Assistance [level of assistance required for transfers and ambulation]: Independent Supervision [direct monitoring required during toileting and ADLs]: Independent Surveillance [continuous indirect monitoring]: Telemetry, continuous pulse oximetry Patient-specific fall prevention interventions for sensory deficits provided, if applicable: Lighting adjusted for specific tasks/activities, purposeful rounding, able to make needs known, non skid socks, bed in lowest/locked position, personal items within reach, call abdalla within reach, bed/chair alarm maintained CARE PLAN GOAL OUTCOME EVALUATION: Problem: Adult Inpatient Plan of Care Goal: [...] Ongoing (Interventions Implemented as Appropriate) Problem: Bleeding (Surgery Nonspecified) Goal: Absence of Bleeding Outcome: Ongoing (Interventions Implemented as Appropriate) Problem: Bowel Motility Impaired (Surgery Nonspecified) Goal: Effective Bowel Elimination Outcome: Ongoing (Interventions Implemented as Appropriate) Problem: Infection (Surgery Nonspecified) Goal: Absence of Infection Signs and Symptoms Outcome: Ongoing (Interventions Implemented as Appropriate) Problem: Ongoing Anesthesia Effects (Surgery Nonspecified) Goal: Anesthesia/Sedation Recovery Outcome: Ongoing (Interventions Implemented as Appropriate) Problem: Pain (Surgery Nonspecified) Goal: Acceptable Pain Control Outcome: Ongoing (Interventions Implemented as Appropriate) Problem: Postoperative Nausea and Vomiting (Surgery Nonspecified) Goal: Nausea and Vomiting Relief Outcome: Ongoing (Interventions Implemented as Appropriate) Problem: Postoperative Urinary Retention (Surgery Nonspecified) Goal: Effective Urinary Elimination Outcome: Ongoing (Interventions Implemented as Appropriate) Problem: Dysrhythmia Goal: Normalized Cardiac Rhythm Outcome: Ongoing (Interventions Implemented as Appropriate) * Consult Note - Jessie Ruiz MD - 04/27/2024 12:08 PM EST Images from the original note were not included. [facility] [place] [address] [id number] INPATIENT CARDIOLOGY CONSULT NOTE Hospital Day 1 day Reason for Consult: tachybrady syndrome Active Problems: Active Hospital Problems Diagnosis Tachy-jey syndrome Resolved Hospital Problems No resolved problems to display. HPI: Lyla Goodrich is a 83 y.o. female with a cardiac history significant for CAD, ischemic cardiomyopathy HFpEF, the above who presents to OSH for dizziness for the past few months worsened over the past two days. 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 She reports that since her episode in October she has episodic feelings of feeling fuzzy, lightheaded, dizzy. The feeling typically lasts for a few seconds and is not daily. Her daughters report that she has experienced it while driving and this concerns them. Once, patient reports that she took a SLNTGL which alleviated the symptoms. The fuzziness has no clear provoking factor. There is no relation to a positional change, or exertional increase. When this occurred yesterday and persisted she checked her BP and HR as she always does and found her HR to be 110, then on re-check her HR had decreased to 47. So she called her PCP's office who recommended she present to the hospital for evaluation. Since arrival to , patient has been feeling well but has intermittent episodes of dizziness. On my review of telemetry patient switches suddenly from 100-110 bpm to 50-60 bpm. Out-Patient Medications: Medications Prior to Admission Medication Sig Dispense Refill Last Dose oxyBUTYnin (Ditropan) 5 mg tablet Take 5 mg by mouth. aspirin EC 81 mg EC (DR) tablet Take 1 tablet by mouth daily. 30 tablet 3 atorvastatin (Lipitor) 80 mg tablet Take 1 tablet by mouth every evening. 90 tablet 3 clopidogreL (Plavix) 75 mg tablet Take 1 tablet by mouth daily. 90 tablet 3 losartan (Cozaar) 50 mg tablet Take 1 tablet by mouth daily. 90 tablet 3 metoprolol succinate XL (Toprol-XL) 25 mg ER 24 hr tablet Take 0.5 tablets by mouth daily. 30 tablet 12 nitroGLYcerin (Nitrostat) 0.[address] 1 tablet under the tongue every 5 minutes as needed for Chest pain. 90 tablet 12 spironolactone (Aldactone) 25 mg tablet Take 1 tablet by mouth daily. 90 tablet 3 CIS Free Text Med - vitamin b 125 complex ASCORBIC ACID (VITAMIN C ORAL) CYANOCOBALAMIN, VITAMIN B-12, (VITAMIN B-12 ORAL) CALCIUM ORAL In-Patient Medications: aspirin EC 81 mg Oral Daily atorvastatin 80 mg Oral QPM clopidogreL 75 mg Oral Daily losartan 50 mg Oral Daily spironolactone 25 mg Oral Daily sodium chloride 0.9 % (flush) 5 mL Intravenous BID heparin (porcine) 5,000 Units Subcutaneous 2 times per day Review of Systems: 11 point ROS is either negative or per HPI Physical Exam: Last value Range last 8 hrs Temperature Temp: 36.8 ??C (98.2 ??F) Temp: [36.8 ??C (98.2 ??F)] Heart Rate Heart Rate: 54 Heart Rate: [54-64] Blood Pressure BP: 129/83 BP: (102-129)/(83-89) Respiratory Rate Resp: 16 Resp: [16] SpO2 SpO2: 94 % SpO2: [94 %-95 %] Intake/Output Summary (Last 24 hours) at 04/27/2024 1208 Last data filed at 04/27/2024 0800 Gross per 24 hour Intake 0 ml Output 600 ml Net -600 ml Wt & BMI By Encounter Date Flowsheet Row Admission (Current) from 04/26/2024 in Heart and Vascular Unit Level 4 Wing B at [facility] Office Visit from 03/29/2024 in Cardiology at [facility] Weight 68.9 kg (151 lb 14.4 oz) 1 04/27/2024 0600 68 kg (150 lb) 1 03/29/2024 1141 BMI 29.6 1 04/26/2024 2250 29.29 1 03/29/2024 1141 General - No acute distress. Well-groomed/nourished. Speech is normal HEENT - EOMI. No scleral icterus. Noninjected. Moist membranes. No cervical LAD Respiratory: Clear to auscultation bilaterally. Good effort/excursion. Cardiac - RRR, normal S1/S2, no audible murmur, gallop or rubs. No JVD. No MARQUIS. Abdomen - Soft, nontender/nondistended, normal active bowel sounds. Extremities - Warm. No clubbing or cyanosis. Radial Pulses: 2+ B/L; DP Pulses: 2+ B/L Neuro - Limited exam. No deficits. ECG: none yet available. Echocardiogram: 10/31/23 -The left ventricle is of normal size. [...] -There is no prior echocardiogram for comparison. Recent Labs 04/27/24311 WBC 7.99 HGB 14.1 HCT 40.9 PLATELET 200 Recent Labs 04/27/24311 NA 142 K 4.4 CL 106 CO2 24 BUN 22* CREATININE 1.00 No results for input(s): AST, ALT, ALKPHOS, BILITOT, BILIDIR in the last 168 hours. Recent Labs 04/27/24311 CALCIUM 9.3 MAGNESIUM 0.88 Recent Labs 04/27/24311 INR 1.0 PT 11.3 No results for input(s): CK, TROPONINT in the last 168 hours. NT-proBNP Date Value Ref Range Status 10/30/2023 375 <=449 pg/mL Final Assessment/Recommendations: Lyla Goodrich is a 83 y.o. female with a cardiac history significant for CAD, ischemic cardiomyopathy HFpEF, the above who presents to OSH for dizziness for the past few months worsened over the past two days. 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 She has been experiencing fuzziness/dizziness for the past several months since her ACS event. The symptoms worsened over the past two days and patient noticed a HR change from 47 to 110 bpm which is what prompted her to get evaluated. Telemetry for the patient is interesting- it shows that the patient is switching between a HR of ~60 bpm to a HR of ~105-110 bpm. Both HR's have evidence of a p- wave preceding the QRS, possibly suggestive of an AT. There is no evidence of the slower HR being a 2:1 block, the R-R interval of the slower HR is not double that of the faster one, and there is no evidence of non-conducted P-waves. It se ems that the faster HR terminates most frequently with a PVC and there are a few episodes of termination with a p-wave suggestive of an AVNRT. It is challenging to determine the etiology of the SVT without further information. An EPS will be useful in determining the cause of this arrhythmia. In the interim trying to attain an ECG when the patient is in her lower and higher rates would be helpful. There are currently no recent ECG's to review. The case is further complicated by the fact that when I am at bedside patient is experiencing her typical symptoms of dizziness when intermittently when she is stably at her resting HR of ~57-60 bpm,resting in bed. I was also at bedside when patient enters her SVT, and rapidly rises to 107 bpm, and she is entirely asymptomatic and unaware of the change. Therefore it is unclear if this finding ofSVT on telemetry is the true cause of her dizziness. I recommended that she/ her daughters at bedside keep a log of her dizziness and see what HR/HR change it correlates to. So that we would have more data by Tuesday which is the earliest an EPS would be undertaken. Although unlikely, it is possiblethat her symptoms are completely unrelated to her SVT. - NPO Tuesday at [place] for possible EPS on Tuesday - ECG's at NSR and SVT - symptom diary if able, to correlate to telemetry. - EP will continue to follow Case discussed with Dr. Carrasco. Jessie Ruiz MD Telecommunications Repairer Associated attestation - Paul Carrasco MD - 04/30/2024 12:55 PM EST I met with the patient today and independently confirmed the history, physical exam, and testing. Ipersonally reviewed and interpreted the available ECGs and additional cardiac testing (echo), as well as the labs. I agree with the detailed management plan as written in the Fellow note today. I discussed this plan with the patient, who is also in agreement. These notes are in addition to the history, exam and plan that I reviewed in detail, listed above: 83F with history of HFpEF, ischemic cardiomyopathy, who presents with dizziness and lightheadedness. Notable for bradycardia, but also with short runs of SVT. Exam normal Differential for dizziness includes bradycardia, vasovagal syncope. 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 * Initial Assessments - Helen Norton RN - 04/27/2024 11:58 AM EST Office of Care Management Initial Assessment Helen Norton RN reviewed record and discussed patient with Care Team. Source of Information: Team, bedside nurse, medical record, and Child Introduced self/reviewed role; services accepted. Admitted From: Transfer from another hospital Location: transfer from [facility] Reason for Hospitalization: felt HR go fast and slow Past medical History: Past Medical History: Diagnosis Date Hyperlipidemia Hypertension Hospitalizations Within the Past 30 Days: no previous admission in last 30 days Current Decision-Making Capacity: Self Family plans to bring in copy of AD when available. If AD's have not been completed the following surrogate would be surrogate decision maker per [place] decision making law. (Only good for 180 days) Any patient receiving care in [place] must abide by [place] law. The hierarchy [...] of the patient???s estate. Advance Care Planning: Do NOT Attempt CPR - Inpatient <no information> -Advanced Directive: No, need to discuss (family plans to bring in a copy) Current Coping/Education/Information Needs: denies Current Functional Ability: Independent Functional Status Prior to Admission: Independent Prior ADLs & IADLs: Independent with all ADLs & IADLs Home Environment: Others in the home: alone. Current Living Arrangements: home/apartment/condo. Accessibility Concerns:first floor apartment. In the last 12 months, was there a time when you were not able to pay the mortgage or rent on time?: No In the past 12 months, how many times have you moved where you were living?: 0 At any time in the past 12 months, were you homeless or living in a halfway (including now)?: No In the past 12 months has the [employer], oil, or water [employer] threatened to shut off services in [...] needed for daily living?: No Current DME: none Home Address confirmed as: [address] [facility] [address] Social & Family Supports: All names listed below confirmed with patient as current and correct Extended Emergency Contact Information Primary Emergency Contact: Iris Downing Address: [address] [place] [address] [facility] Mobile Relation: Child Secondary Emergency Contact: Karen More Address: [address] [facility] Mobile Relation: Child Current Care Provided by: self Provides Primary Care For: no one Caregiver if needed: child(emmanuel), adult Quality of Family relationships: helpful, involved Community Resources being provided currently: none Behavioral Health History: denies Substance Use/Abuse listed: Social History Tobacco Use Smoking Status Former [...] points: Addiction likely Other Pertinent/Service Specific Information: denies Health/Prescription Coverage: Primary Insurance: [employer]GED MEDICARE Payor: [employer]GED MEDICARE / Plan: [employer]GED MEDICARE PPO / Product Type: *No Product type* / Secondary Insurance: N/A ; Prescription Coverage: Yes Preferred Pharmacy: [id number] - [place], [place] - [address] [place] [address] [address] [facility] [address] [id number] - [place], [place] - [address] [place] [address] AT SEC OF [facility] & [address] [address] Status: Patient is a : No Primary Care Provider confirmed: Masood Pierson MD [phone] Patient/Caregiver Goals of Treatment: to d/c home when MR Potential Needs for Transition of Care: none Agency Referrals: Not Applicable Transportation: no concerns Transportation Anticipated: family or friend will provide Concerns to be Addressed: no discharge needs identified Assessment: Patient is admitted to [facility] service for 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 University Manager called patient's daughter (Iris-listed) to obtain all the information for this IA. Patient is independent at baseline and drives herself for transportation needs at baseline. Patient lives in a first floor apartment and daughter (Iris) lives local to patient. Iris (daughter) states that she can offer support to patient at discharge if needed and plans to transport patient home at discharge. Plan going forward: Per morning IDR- plan for pacemake eval. Plan pending hospital course. Plan forpatient to d/c home when medically ready. Care Management team will continue to follow and assist with discharge planing and coordination of care as indicated. Helen Norton RN, Pager-[phone] * Plan of Care - Julio Cesar Johnston RN - 04/27/2024 2:38 AM EST Problem: Adult Inpatient Plan of Care Goal: Plan of Care Review 04/27/2024237 by Julio Cesar Johnston RN Outcome: Ongoing (Interventions Implemented as Appropriate) 04/26/20242310 by Julio Cesar Johnston RN Outcome: Ongoing (Interventions Implemented as Appropriate) 04/26/20242310 by Julio Cesar Johnston RN Outcome: Ongoing (Interventions Implemented as Appropriate) Goal: Patient-Specific Goal (Individualized) 04/27/2024237 by Julio Cesar Johnston RN Outcome: Ongoing (Interventions Implemented as Appropriate) 04/26/20242310 by Julio Cesar Johnston RN Outcome: Ongoing (Interventions Implemented as Appropriate) 04/26/20242310 by Julio Cesar Johnston RN Outcome: Ongoing (Interventions Implemented as Appropriate) Goal: Absence of Hospital-Acquired Illness or Injury 04/27/2024237 by Julio Cesar Johnston RN Outcome: Ongoing (Interventions Implemented as Appropriate) 04/26/20242310 by Julio Cesar Johnston RN Outcome: Ongoing (Interventions Implemented as Appropriate) 04/26/20242310 by Julio Cesar Johnston RN Outcome: Ongoing (Interventions Implemented as Appropriate) Goal: Optimal Comfort and Wellbeing 04/27/2024237 by Julio Cesar Johnston RN Outcome: Ongoing (Interventions Implemented as Appropriate) 04/26/20242310 by Julio Cesar Johnston RN Outcome: Ongoing (Interventions Implemented as Appropriate) 04/26/20242310 by Julio Cesar Johnston RN Outcome: Ongoing (Interventions Implemented as Appropriate) Goal: Readiness for Transition of Care 04/27/2024237 by Julio Cesar Johnston RN Outcome: Ongoing (Interventions Implemented as Appropriate) 04/26/20242310 by Julio Cesar Johnston RN Outcome: Ongoing (Interventions Implemented as Appropriate) 04/26/20242310 by Julio Cesar Johnston RN Outcome: Ongoing (Interventions Implemented as Appropriate) Problem: Bleeding (Surgery Nonspecified) Goal: Absence of Bleeding 04/27/2024237 by Julio Cesar Johnston RN Outcome: Ongoing (Interventions Implemented as Appropriate) 04/26/20242310 by Julio Cesar Johnston RN Outcome: Ongoing (Interventions Implemented as Appropriate) 04/26/20242310 by Julio Cesar Johnston RN Outcome: Ongoing (Interventions Implemented as Appropriate) Problem: Bowel Motility Impaired (Surgery Nonspecified) Goal: Effective Bowel Elimination 04/27/2024237 by Julio Cesar Johnston RN Outcome: Ongoing (Interventions Implemented as Appropriate) 04/26/20242310 by Julio Cesar Johnston RN Outcome: Ongoing (Interventions Implemented as Appropriate) 04/26/20242310 by Julio Cesar Johnston RN Outcome: Ongoing (Interventions Implemented as Appropriate) Problem: Infection (Surgery Nonspecified) Goal: Absence of Infection Signs and Symptoms 04/27/2024237 by Julio Cesar Johnston RN Outcome: Ongoing (Interventions Implemented as Appropriate) 04/26/20242310 by Julio Cesar Johnston RN Outcome: Ongoing (Interventions Implemented as Appropriate) 04/26/20242310 by Julio Cesar Johnston RN Outcome: Ongoing (Interventions Implemented as Appropriate) Problem: Ongoing Anesthesia Effects (Surgery Nonspecified) Goal: Anesthesia/Sedation Recovery 04/27/2024237 by Julio Cesar Johnston RN Outcome: Ongoing (Interventions Implemented as Appropriate) 04/26/20242310 by Julio Cesar Johnston RN Outcome: Ongoing (Interventions Implemented as Appropriate) 04/26/20242310 by Julio Cesar Johnston RN Outcome: Ongoing (Interventions Implemented as Appropriate) Problem: Pain (Surgery Nonspecified) Goal: Acceptable Pain Control 04/27/2024237 by Julio Cesar Johnston RN Outcome: Ongoing (Interventions Implemented as Appropriate) 04/26/20242310 by Julio Cesar Johnston RN Outcome: Ongoing (Interventions Implemented as Appropriate) 04/26/20242310 by Julio Cesar Johnston RN Outcome: Ongoing (Interventions Implemented as Appropriate) Problem: Postoperative Nausea and Vomiting (Surgery Nonspecified) Goal: Nausea and Vomiting Relief 04/27/2024237 by Julio Cesar Johnston RN Outcome: Ongoing (Interventions Implemented as Appropriate) 04/26/20242310 by Julio Cesar Johnston RN Outcome: Ongoing (Interventions Implemented as Appropriate) 04/26/20242310 by Julio Cesar Johnston RN Outcome: Ongoing (Interventions Implemented as Appropriate) Problem: Postoperative Urinary Retention (Surgery Nonspecified) Goal: Effective Urinary Elimination 04/27/2024237 by Julio Cesar Johnston RN Outcome: Ongoing (Interventions Implemented as Appropriate) 04/26/20242310 by Julio Cesar Johnston RN Outcome: Ongoing (Interventions Implemented as Appropriate) 04/26/20242310 by Julio Cesar Johnston RN Outcome: Ongoing (Interventions Implemented as Appropriate) * Plan of Care - Julio Cesar Johnston RN - 04/26/2024 11:11 PM EST Problem: Adult Inpatient Plan of Care Goal: [...] Ongoing (Interventions Implemented as Appropriate) Problem: Bleeding (Surgery Nonspecified) Goal: Absence of Bleeding Outcome: Ongoing (Interventions Implemented as Appropriate) Problem: Bowel Motility Impaired (Surgery Nonspecified) Goal: Effective Bowel Elimination Outcome: Ongoing (Interventions Implemented as Appropriate) Problem: Infection (Surgery Nonspecified) Goal: Absence of Infection Signs and Symptoms Outcome: Ongoing (Interventions Implemented as Appropriate) Problem: Ongoing Anesthesia Effects (Surgery Nonspecified) Goal: Anesthesia/Sedation Recovery Outcome: Ongoing (Interventions Implemented as Appropriate) Problem: Pain (Surgery Nonspecified) Goal: Acceptable Pain Control Outcome: Ongoing (Interventions Implemented as Appropriate) Problem: Postoperative Nausea and Vomiting (Surgery Nonspecified) Goal: Nausea and Vomiting Relief Outcome: Ongoing (Interventions Implemented as Appropriate) Problem: Postoperative Urinary Retention (Surgery Nonspecified) Goal: Effective Urinary Elimination Outcome: Ongoing (Interventions Implemented as Appropriate) documented in this encounter Plan of Treatment Upcoming Encounters Date Type Department Care Team (Late st Contact Info) Description 08/07/2024 1:00 PM EST Office Visit Cardiology at [address] [phone] Izaiah Meyer MD [facility] [place] [address] 08/09/2024 10:00 AM EST Hospital Encounter [place] [address] Arrived Pending Results Name Type Priority Associated Diagnoses Date /Time EKG 12 Lead ECG Routine Tachy-jey syndrome 04/28/2024 2:26 PM EST Scheduled Orders Name Type Priority Associated Diagnoses Orde r Schedule EKG 12 Lead ECG STAT Tachy-jey syndrome One Time for 1 Occurrences starting 04/26/2024 until 04/26/2024 Scheduled Referrals Name Type Priority Associated Diagnoses Orde r Schedule Referral to Home Health Outpatient Referral Routine Tachy-jey syndrome Ordered: 05/01/2024 documented as of this encounter Procedures Procedure Name Priority Date/Time Associated Diagnosis Comments XR CHEST PA AND LATERAL Routine 05/01/20 6:03 AM EST CBC (WITH DIFF) Routine 05/01/2024 2:17 AM EST MAGNESIUM Routine 05/01/2024 2:17 AM EST BASIC METABOLIC PANEL Routine 05/01/2024 2:17 AM EST ELECTROPHYSIOLOGY PROCEDURE Routine 04/30/2024 12:01 PM EST CBC (WITH DIFF) Routine 04/30/2024 2:28 AM EST MAGNESIUM Routine 04/30/2024 2:28 AM EST BASIC METABOLIC PANEL Routine 04/30/2024 2:28 AM EST CBC (WITH DIFF) Routine 04/29/2024 2:01 AM EST MAGNESIUM Routine 04/29/2024 2:01 AM EST BASIC METABOLIC PANEL Routine 04/29/2024 2:01 AM EST EKG 12-LEAD STAT 04/28/2024 2:27 PM EST Tachy-jey syndrome EKG 12-LEAD Routine 04/28/2024 2:26 PM EST Tachy-jey syndrome CBC (WITH DIFF) Routine 04/28/2024 3:32 AM EST MAGNESIUM Routine 04/28/2024 3:32 AM EST BASIC METABOLIC PANEL Routine 04/28/2024 3:32 AM EST EKG 12-LEAD STAT 04/27/2024 6:45 PM EST Tachy-jey syndrome RAPID [place]FLUEN[place] [place] STAT 04/27/2024 4:28 AM EST TROPONIN - SINGLE STAT 04/27/2024 3:1 2 AM EST PROTHROMBIN TIME STAT 04/27/2024 3:12 AM EST CBC (WITH DIFF) STAT 04/27/2024 3:12 AM EST TSH STAT 04/27/2024 3:12 AM EST MAGNESIUM STAT Add-On 04/27/2024 3:12 AM EST BASIC METABOLIC PANEL STAT 04/27/2024 3:12 AM EST URINALYSIS WITH REFLEX CULTURE STAT 04/27/2024 12:06 AM EST EKG 12-LEAD Routine 04/26/2024 11:01 PM EST Tachy-jey syndrome documented in this encounter Results * XR Chest PA & Lateral (Generic) (05/01/2024 6:03 AM EST) [employer] Signature WORKSTATION ID [id number] RAD Anatomical Region Laterality Modality Chest N/A [...] have questions please contact the health hearing healthcare practitioner that requested your imaging first. ? Electronically signed by: Wilson Hester MD, [facility] ??([phone]), at 05/01/2024 1:20 PM Narrative 05/01/2024 1:20 PM EST EXAMINATION: XR [...] who have questions please contactthe health hearing healthcare practitioner that requested your imaging first. Electronically signed by: Wilson Hester MD, [facility]([phone]), at 05/01/2024 1:20 PM Marissa Almonte MD IMG DX ORDERABLES * (ABNORMAL) CBC (with Diff) (05/01/2024 2:17 AM EST) White Blood Cell 9.17 4.00 - 9.50 x10(3)/mc L 05/01/2024 2:36 AM [facility] Red Blood Cell 4.04 4.00 - 5.21 x10(6)/mc L 05/01/2024 2:36 AM [facility] Hemoglobin 13.6 11.7 - 15.5 g/dL 05/01/2024 2:36 AM [facility] Hematocrit 40.8 35.7 - 45.8 % 05/01/2024 2:36 AM [facility] Mean Cell Volume 101.0(H) 82.6 - 94.4 fL 05/01/2024 2:36 AM [facility] Mean Cell Hemoglobin 33.7(H) 27.1 - 32.0 pg 05/01/2024 2:36 AM [facility] Mean Cell Hemoglobin Concentration 33.3 31.7 - 35.0 g/dL 05/01/2024 2:36 AM [facility] Platelet 180 145 - 357 x10(3)/mc L 05/01/2024 2:36 AM [facility] Mean Platelet Volume 11.0 7.6 - 12.9 fL 05/01/2024 2:36 AM [facility] RDW Standard Deviation 52.7(H) 37.0 - 46.0 fL 05/01/2024 2:36 AM [facility] RDW coefficient of variation 14.0 11.5 - 14.1 % 05/01/2024 2:36 AM [facility] NRBC% auto 0.0 % 05/01/2024 2:36 AM [facility] NRBC Absolute <0.01 <0.01 x10(3)/mc L 05/01/2024 2:36 AM [facility] Neutrophil % 68.2 % 05/01/2024 2:36 AM [facility] Neutrophil Absolute (ANC) - Automated 6.25(H) 1.70 - 6.10 x10(3)/mc L 05/01/2024 2:36 AM [facility] Lymph % 14.1 % 05/01/2024 2:36 AM [facility] Lymph Absolute 1.29 0.90 - 3.20 x10(3)/mc L 05/01/2024 2:36 AM [facility] Monocyte % 13.6 % 05/01/2024 2:36 AM [facility] Monocyte Absolute 1.25(H) 0.30 - 0.90 x10(3)/mc L 05/01/2024 2:36 AM [facility] Eos % 3.4 % 05/01/2024 2:36 AM [facility] Eos Absolute 0.31 0.00 - 0.40 x10(3)/mc L 05/01/2024 2:36 AM [facility] Basophil % 0.4 % 05/01/2024 2:36 AM [facility] Baso Absolute 0.04 0.00 - 0.10 x10(3)/mc L 05/01/2024 2:36 AM [facility] Immature Gran % 0.3 % 2:36 AM [facility] Immature Gran Absolute <0.04 0.00 - 0.04 x10(3)/mc L 05/01/2024 2:36 AM [facility] Blood VENOUS BLOOD SPECIMEN / Unknown Venipuncture / Unknown 05/01/2024 2:17 AM EST 05/01/2024 2:31 AM EST Marissa Almonte MD HEMATOLOGY ORDERAB LES [facility] [place] [address] * Basic Metabolic Panel (05/01/2024 2:17 AM EST) Glucose 132 65 - 199 mg/dL 05/01/2024 3:00 AM [facility] Comment:Glucose Concentratio n >=200 mg/dL plus symptoms is consistent with Diabetes Mellitus. Blood Urea Nitrogen 17 8 - 18 mg/dL 05/01/2024 3:00 AM [facility] Creatinine 0.92 0.70 - 1.20 mg/dL 05/01/2024 3:00 AM [facility] Sodium 140 135 - 145 mMol/L 05/01/2024 3:00 AM [facility] Potassium 4.2 3.5 - 5.0 mMol/L 05/01/2024 3:00 AM [facility] Chloride 106 98 - 107 mMol/L 05/01/2024 3:00 AM [facility] Carbon Dioxide 23 22 - 31 mMol/L 05/01/2024 3:00 AM [facility] Anion Gap 11 5 - 15 mMol/L 05/01/2024 3:00 AM [facility] Calcium 8.6 8.5 - 10.5 mg/dL 05/01/2024 3:00 AM [facility] Est Glomerular Filtration Rate - Female 62 mL/min/1. 73 m?? 05/01/2024 3:00 AM [facility] Comment: This patient's estimated GFR was [...] EST Marissa Almonte MD CHEMISTRY ORDERABL ES [facility] [place] [address] * Magnesium (05/01/2024 2:17 AM EST) Magnesium 0.91 0.69 - 1.07 mMol/L 05/01/2024 3:00 AM EST [facility] Blood VENOUS BLOOD SPECIMEN / Unknown Venipuncture / Unknown 05/01/2024 2:17 AM EST 05/01/2024 2:30 AM EST Marissa Almonte MD CHEMISTRY ORDERABL ES [facility] [place] [address] * ELECTROPHYSIOLOGY PROCEDURE (04/30/2024 12:01 PM EST) [...] RADHA to circ/OM and PCI to RCA (BOAT LOADER HELPER), HFpEP who presents with fatigue for the past few months and presented because her HR was in the 40's at a visit to her pain doctor.. presents with fatigue for the past few months who was found to have SVT with baseline sinus rates in the 60's. 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 Referring Physicians: GISELE COLES XAVIER L RAMACHANDRA, NAYANA Operators: Dre Powers [...] Values Intervals ?? Cycle length 1250 ??ms FL 248 ??ms QRS 107 ??ms QT 465 [...] used a 4 mm nonirrigated ablation catheter (Zaiseoulre) for further localization mapping. ??Stability was a [...] in the long axis and a 4 Cymraes micropuncture needle was used to access the [...] AND GENERATOR DATA: LEAD AND GENERATOR DATA: Form Tamping Machine Operator Model # Serial # Generator [employer] [id number] Atrial Lead [employer] [id number] RV Lead [employer] [id number] PACE/SENSE DATA: Sensed wave (mV) Threshold (V) [...] catheter ablation Successful implant of a left-sided [employer] dual-chamber pacemaker Observe overnight on telemetry NPO after midnight tonight (in case of complications) Chest PA/Lateral at 6 AM Okay to resume dual antiplatelet therapy Follow-up in EP clinic in 1 to 3 months The patient's daughter Iris was updated immediately after the procedure. I was present for and directly participated as bed and breakfast operator in all herman aspects of these procedures. Dre Powers MD, PhD, [facility] Cardiac Electrophysiology Dre Powers MD EP PROCEDURE ORDERAB LES * (ABNORMAL) CBC (with Diff) (04/30/2024 2:28 AM EST) White Blood Cell 6.98 4.00 - 9.50 x10(3)/mc L 04/30/2024 3:06 AM [facility] Red Blood Cell 3.94(L) 4.00 - 5.21 x10(6)/mc L 04/30/2024 3:06 AM [facility] Hemoglobin 13.4 11.7 - 15.5 g/dL 04/30/2024 3:06 AM [facility] Hematocrit 39.0 35.7 - 45.8 % 04/30/2024 3:06 AM [facility] Mean Cell Volume 99.0(H) 82.6 - 94.4 fL 04/30/2024 3:06 AM [facility] Mean Cell Hemoglobin 34.0(H) 27.1 - 32.0 pg 04/30/2024 3:06 AM [facility] Mean Cell Hemoglobin Concentration 34.4 31.7 - 35.0 g/dL 04/30/2024 3:06 AM [facility] Platelet 192 145 - 357 x10(3)/mc L 04/30/2024 3:06 AM [facility] Mean Platelet Volume 11.4 7.6 - 12.9 fL 04/30/2024 3:06 AM [facility] RDW Standard Deviation 50.0(H) 37.0 - 46.0 fL 04/30/2024 3:06 AM [facility] RDW coefficient of variation 13.7 11.5 - 14.1 % 04/30/2024 3:06 AM [facility] NRBC% auto 0.0 % 04/30/2024 3:06 AM [facility] NRBC Absolute <0.01 <0.01 x10(3)/mc L 04/30/2024 3:06 AM [facility] Neutrophil % 40.6 % 04/30/2024 3:06 AM [facility] Neutrophil Absolute (ANC) - Automated 2.83 1.70 - 6.10 x10(3)/mc L 04/30/2024 3:06 AM [facility] Lymph % 37.4 % 04/30/2024 3:06 AM [facility] Lymph Absolute 2.61 0.90 - 3.20 x10(3)/mc L 04/30/2024 3:06 AM [facility] Monocyte % 15.3 % 04/30/2024 3:06 AM [facility] Monocyte Absolute 1.07(H) 0.30 - 0.90 x10(3)/mc L 04/30/2024 3:06 AM [facility] Eos % 5.4 % 04/30/2024 3:06 AM [facility] Eos Absolute 0.38 0.00 - 0.40 x10(3)/mc L 04/30/2024 3:06 AM [facility] Basophil % 0.9 % 04/30/2024 3:06 AM [facility] Baso Absolute 0.06 0.00 - 0.10 x10(3)/mc L 04/30/2024 3:06 AM [facility] Immature Gran % 0.4 % 3:06 AM [facility] Immature Gran Absolute <0.04 0.00 - 0.04 x10(3)/mc L 04/30/2024 3:06 AM [facility] Blood VENOUS BLOOD SPECIMEN / Unknown Venipuncture / Unknown 04/30/2024 2:28 AM EST 04/30/2024 2:59 AM EST Marissa Almonte MD HEMATOLOGY ORDERAB LES [facility] [place] [address] * (ABNORMAL) Basic Metabolic Panel (04/30/2024 2:28 AM EST) Glucose 111 65 - 199 mg/dL 04/30/2024 3:32 AM [facility] Comment:Glucose Concentratio n >=200 mg/dL plus symptoms is consistent with Diabetes Mellitus. Blood Urea Nitrogen 22(H) 8 - 18 mg/dL 04/30/2024 3:32 AM [facility] Creatinine 0.89 0.70 - 1.20 mg/dL 04/30/2024 3:32 AM [facility] Sodium 139 135 - 145 mMol/L 04/30/2024 3:32 AM [facility] Potassium 4.0 3.5 - 5.0 mMol/L 04/30/2024 3:32 AM [facility] Chloride 106 98 - 107 mMol/L 04/30/2024 3:32 AM [facility] Carbon Dioxide 22 22 - 31 mMol/L 04/30/2024 3:32 AM [facility] Anion Gap 11 5 - 15 mMol/L 04/30/2024 3:32 AM [facility] Calcium 8.6 8.5 - 10.5 mg/dL 04/30/2024 3:32 AM [facility] Est Glomerular Filtration Rate - Female 64 mL/min/1. 73 m?? 04/30/2024 3:32 AM [facility] Comment: This patient's estimated GFR was [...] BLOOD SPECIMEN / Unknown Venipuncture / Unknown 04/30/2024 2:28 AM EST 04/30/2024 2:59 AM EST Marissa Almonte MD CHEMISTRY ORDERABL ES [facility] [place] [address] * Magnesium (04/30/2024 2:28 AM EST) Pathologist [facility] Magnesium 0.89 0.69 - 1.07 mMol/L 04/30/2024 3:32 AM [facility] Blood VENOUS BLOOD SPECIMEN / Unknown Venipuncture / Unknown 04/30/2024 2:28 AM EST 04/30/2024 2:59 AM EST Marissa Almonte MD CHEMISTRY ORDERABL ES Performing Organization Address [facility]/ZIP Co de Phone Number [facility] [place] [address] * (ABNORMAL) CBC (with Diff) (04/29/2024 2:01 AM EST) [facility] White Blood Cell 7.51 4.00 - 9.50 x10(3)/mc L 04/29/2024 2:33 AM [facility] Red Blood Cell 4.02 4.00 - 5.21 x10(6)/mc L 04/29/2024 2:33 AM [facility] Hemoglobin 13.6 11.7 - 15.5 g/dL 04/29/2024 2:33 AM [facility] Hematocrit 40.1 35.7 - 45.8 % 04/29/2024 2:33 AM [facility] Mean Cell Volume 99.8(H) 82.6 - 94.4 fL 04/29/2024 2:33 AM [facility] Mean Cell Hemoglobin 33.8(H) 27.1 - 32.0 pg 04/29/2024 2:33 AM [facility] Mean Cell Hemoglobin Concentration 33.9 31.7 - 35.0 g/dL 04/29/2024 2:33 AM [facility] Platelet 206 145 - 357 x10(3)/mc L 04/29/2024 2:33 AM [facility] Mean Platelet Volume 11.2 7.6 - 12.9 fL 04/29/2024 2:33 AM [facility] RDW Standard Deviation 50.1(H) 37.0 - 46.0 fL 04/29/2024 2:33 AM [facility] RDW coefficient of variation 13.5 11.5 - 14.1 % 04/29/2024 2:33 AM [facility] NRBC% auto 0.0 % 04/29/2024 2:33 AM [facility] NRBC Absolute <0.01 <0.01 x10(3)/mc L 04/29/2024 2:33 AM [facility] Neutrophil % 46.3 % 04/29/2024 2:33 AM [facility] Neutrophil Absolute (ANC) - Automated 3.48 1.70 - 6.10 x10(3)/mc L 04/29/2024 2:33 AM [facility] Lymph % 32.4 % 04/29/2024 2:33 AM [facility] Lymph Absolute 2.43 0.90 - 3.20 x10(3)/mc L 04/29/2024 2:33 AM [facility] Monocyte % 15.3 % 04/29/2024 2:33 AM [facility] Monocyte Absolute 1.15(H) 0.30 - 0.90 x10(3)/mc L 04/29/2024 2:33 AM [facility] Eos % 4.8 % 04/29/2024 2:33 AM [facility] Eos Absolute 0.36 0.00 - 0.40 x10(3)/mc L 04/29/2024 2:33 AM [facility] Basophil % 0.7 % 04/29/2024 2:33 AM [facility] Baso Absolute 0.05 0.00 - 0.10 x10(3)/mc L 04/29/2024 2:33 AM EST [facility] Immature Gran % 0.5 % 2:33 AM [facility] Immature Gran Absolute 0.04 0.00 - 0.04 x10(3)/mc L 04/29/2024 2:33 AM [facility] Blood VENOUS BLOOD SPECIMEN / Unknown Venipuncture / Unknown 04/29/2024 2:01 AM EST 04/29/2024 2:22 AM EST Marissa Almonte MD HEMATOLOGY ORDERAB LES [facility] [place] [address] * (ABNORMAL) Basic Metabolic Panel (04/29/2024 2:01 AM EST) Glucose 109 65 - 199 mg/dL 04/29/2024 2:56 AM [facility] Comment:Glucose Concentratio n >=200 mg/dL plus symptoms is consistent with Diabetes Mellitus. Blood Urea Nitrogen 30(H) 8 - 18 mg/dL 04/29/2024 2:56 AM [facility] Creatinine 1.09 0.70 - 1.20 mg/dL 04/29/2024 2:56 AM [facility] Sodium 137 135 - 145 mMol/L 04/29/2024 2:56 AM [facility] Potassium 4.3 3.5 - 5.0 mMol/L 04/29/2024 2:56 AM [facility] Chloride 103 98 - 107 mMol/L 04/29/2024 2:56 AM [facility] Carbon Dioxide 23 22 - 31 mMol/L 04/29/2024 2:56 AM [facility] Anion Gap 11 5 - 15 mMol/L 04/29/2024 2:56 AM [facility] Calcium 8.6 8.5 - 10.5 mg/dL 04/29/2024 2:56 AM EST [facility] Est Glomerular Filtration Rate - Female 50 mL/min/1. 73 m?? 04/29/2024 2:56 AM EST [facility] Comment: This patient's [...] BLOOD SPECIMEN / Unknown Venipuncture / Unknown 04/29/2024 2:01 AM EST 04/29/2024 2:22 AM EST Marissa Almonte MD CHEMISTRY ORDERABL ES Performing Organization Address City/[facility]/ZIP Co de Phone Number [facility] [place] [address] * Magnesium (04/29/2024 2:01 AM EST) Pathologist [facility] Magnesium 0.87 0.69 - 1.07 mMol/L 04/29/2024 2:56 AM EST [facility] Blood VENOUS BLOOD SPECIMEN / Unknown Venipuncture / Unknown 04/29/2024 2:01 AM EST 04/29/2024 2:22 AM EST Marissa Almonte MD CHEMISTRY ORDERABL ES [facility] [place] [address] * EKG 12 Lead (04/28/2024 2:27 PM EST) Ventricular rate 125 BPM MUSE SYSTEM Atrial Rate 129 BPM MUSE SYSTEM P-R Interval 256 ms MUSE SYSTEM QRS Duration 84 ms MUSE SYSTEM Q-T Interval 354 ms MUSE SYSTEM QTC Calculated (Bezet) 510 ms MUSE SYSTEM Calculated P [place] -4 degrees MUSE SYSTEM Calculated R [place] -48 degrees MUSE SYSTEM Calculated T [place] 40 degrees MUSE SYSTEM INTERPRETATION Sinus tachycardia with 1st degree A-V block with Premature atrial complexes Left axis deviation Moderate voltage criteria for LVH, may be normal variant ( R in aVL , [place] product ) Inferior infarct , age undetermined Anterolateral infarct , age undetermined Abnormal ECG When compared with ECG of 27-APR-2024 18:45, Premature atrial complexes are now Present Vent. rate has increased BY ??50 BPM Anterolateral infarct is now Present Confirmed by Butch Soto MD ([id number]) on 04/30/2024 9:59:46 PM MUSE SYSTEM 04/28/2024 2:27 PM EST 04/30/2024 9:59 PM EST Izaiah Monroe MD ECG ORDERABLES MUSE SYSTEM * (ABNORMAL) CBC (with Diff) (04/28/2024 3:32 AM EST) White Blood Cell 8.16 4.00 - 9.50 x10(3)/mc L 04/28/2024 3:55 AM [facility] Red Blood Cell 4.20 4.00 - 5.21 x10(6)/mc L 04/28/2024 3:55 AM [facility] Hemoglobin 14.8 11.7 - 15.5 g/dL 04/28/2024 3:55 AM [facility] Hematocrit 41.7 35.7 - 45.8 % 04/28/2024 3:55 AM [facility] Mean Cell Volume 99.3(H) 82.6 - 94.4 fL 04/28/2024 3:55 AM [facility] Mean Cell Hemoglobin 35.2(H) 27.1 - 32.0 pg 04/28/2024 3:55 AM [facility] Mean Cell Hemoglobin Concentration 35.5(H) 31.7 - 35.0 g/dL 04/28/2024 3:55 AM [facility] Platelet 203 145 - 357 x10(3)/mc L 04/28/2024 3:55 AM [facility] Mean Platelet Volume 11.4 7.6 - 12.9 fL 04/28/2024 3:55 AM [facility] RDW Standard Deviation 49.8(H) 37.0 - 46.0 fL 04/28/2024 3:55 AM [facility] RDW coefficient of variation 13.6 11.5 - 14.1 % 04/28/2024 3:55 AM [facility] NRBC% auto 0.0 % 04/28/2024 3:55 AM [facility] NRBC Absolute <0.01 <0.01 x10(3)/mc L 04/28/2024 3:55 AM [facility] Neutrophil % 48.4 % 04/28/2024 3:55 AM [facility] Neutrophil Absolute (ANC) - Automated 3.95 1.70 - 6.10 x10(3)/mc L 04/28/2024 3:55 AM [facility] Lymph % 33.2 % 04/28/2024 3:55 AM [facility] Lymph Absolute 2.71 0.90 - 3.20 x10(3)/mc L 04/28/2024 3:55 AM [facility] Monocyte % 12.6 % 04/28/2024 3:55 AM [facility] Monocyte Absolute 1.03(H) 0.30 - 0.90 x10(3)/mc L 04/28/2024 3:55 AM [facility] Eos % 4.7 % 04/28/2024 3:55 AM [facility] Eos Absolute 0.38 0.00 - 0.40 x10(3)/mc L 04/28/2024 3:55 AM [facility] Basophil % 0.7 % 04/28/2024 3:55 AM [facility] Baso Absolute 0.06 0.00 - 0.10 x10(3)/mc L 04/28/2024 3:55 AM [facility] Immature Gran % 0.4 % 3:55 AM [facility] Immature Gran Absolute <0.04 0.00 - 0.04 x10(3)/mc L 04/28/2024 3:55 AM [facility] Blood VENOUS BLOOD SPECIMEN / Unknown Venipuncture / Unknown 04/28/2024 3:32 AM EST 04/28/2024 3:46 AM EST Marissa Almonte MD HEMATOLOGY ORDERAB LES [facility] [place] [address] * (ABNORMAL) Basic Metabolic Panel (04/28/2024 3:32 AM EST) Glucose 101 65 - 199 mg/dL 04/28/2024 4:20 AM [facility] Comment:Glucose Concentratio n >=200 mg/dL plus symptoms is consistent with Diabetes Mellitus. Blood Urea Nitrogen 25(H) 8 - 18 mg/dL 04/28/2024 4:20 AM [facility] Creatinine 0.97 0.70 - 1.20 mg/dL 04/28/2024 4:20 AM [facility] Sodium 141 135 - 145 mMol/L 04/28/2024 4:20 AM [facility] Potassium 4.2 3.5 - 5.0 mMol/L 04/28/2024 4:20 AM [facility] Chloride 105 98 - 107 mMol/L 04/28/2024 4:20 AM [facility] Carbon Dioxide 22 22 - 31 mMol/L 04/28/2024 4:20 AM [facility] Anion Gap 14 5 - 15 mMol/L 04/28/2024 4:20 AM [facility] Calcium 8.9 8.5 - 10.5 mg/dL 04/28/2024 4:20 AM EST [facility] Est Glomerular Filtration Rate - Female 58 mL/min/1. 73 m?? 04/28/2024 4:20 AM EST [facility] Comment: This patient's [...] BLOOD SPECIMEN / Unknown Venipuncture / Unknown 04/28/2024 3:32 AM EST 04/28/2024 3:46 AM EST Marissa Almonte MD CHEMISTRY ORDERABL ES Performing Organization Address City/[facility]/ZIP Co de Phone Number [facility] [place] [address] * Magnesium (04/28/2024 3:32 AM EST) Pathologist [facility] Magnesium 0.89 0.69 - 1.07 mMol/L 04/28/2024 4:20 AM EST [facility] Blood VENOUS BLOOD SPECIMEN / Unknown Venipuncture / Unknown 04/28/2024 3:32 AM EST 04/28/2024 3:46 AM EST Marissa Almonte MD CHEMISTRY ORDERABL ES [facility] [place] [address] * EKG 12 Lead (04/27/2024 6:45 PM EST) Ventricular rate 75 BPM MUSE SYSTEM Atrial Rate 75 BPM MUSE SYSTEM P-R Interval 222 ms MUSE SYSTEM QRS Duration 90 ms MUSE SYSTEM Q-T Interval 386 ms MUSE SYSTEM QTC Calculated (Bezet) 431 ms MUSE SYSTEM Calculated P [place] 78 degrees MUSE SYSTEM Calculated R [place] -49 degrees MUSE SYSTEM Calculated T [place] 13 degrees MUSE SYSTEM INTERPRETATION Sinus rhythm with 1st degree A-V block Left anterior fascicular block Moderate voltage criteria for LVH, may be normal variant ( R in aVL , [place] product ) Abnormal ECG When compared with ECG of 24-NOV-2023 11:09, T wave inversion no longer evident in Inferior leads T wave inversion no longer evident in Anterolateral leads Confirmed by Butch Soto MD ([id number]) on 04/28/2024 4:52:18 PM MUSE SYSTEM 04/27/2024 6:45 PM EST 04/28/2024 4:52 PM EST Izaiah Monroe MD ECG ORDERABLES MUSE SYSTEM * Rapid Influenza A/[place] [place] (04/27/2024 4:28 AM EST) Influenza A PCR Not Detected Not Detected 04/27/2024 6:34 AM EST [facility] Influenza B PCR Not Detected Not Detected 04/27/2024 6:34 AM EST [facility] RSV PCR Not Detected Not Detected 04/27/2024 6:34 AM EST [facility] Swab SPECIMEN FROM NASOPHARYNGEAL STRUCTURE / Unknown Non Blood Collection / Unknown 04/27/2024 4:28 AM EST 04/27/2024 4:40 AM EST Izaiah Monroe MD MICROBIOLOGY - GENER AL ORDERABLES [facility] [place] [address] * Magnesium (04/27/2024 3:12 AM EST) Magnesium 0.88 0.69 - 1.07 mMol/L 04/27/2024 4:02 AM EST [facility] Blood VENOUS BLOOD SPECIMEN / Unknown Venipuncture / Unknown 04/27/2024 3:12 AM EST 04/27/2024 3:25 AM EST Izaiah Monroe MD CHEMISTRY ORDERABLES [facility] [place] [address] * (ABNORMAL) Basic Metabolic Panel (04/27/2024 3:12 AM EST) Glucose 112 65 - 199 mg/dL 04/27/2024 4:02 AM [facility] Comment:Glucose Concentratio n >=200 mg/dL plus symptoms is consistent with Diabetes Mellitus. Blood Urea Nitrogen 22(H) 8 - 18 mg/dL 04/27/2024 4:02 AM [facility] Creatinine 1.00 0.70 - 1.20 mg/dL 04/27/2024 4:02 AM [facility] Sodium 142 135 - 145 mMol/L 04/27/2024 4:02 AM [facility] Potassium 4.4 3.5 - 5.0 mMol/L 04/27/2024 4:02 AM [facility] Chloride 106 98 - 107 mMol/L 04/27/2024 4:02 AM [facility] Carbon Dioxide 24 22 - 31 mMol/L 04/27/2024 4:02 AM [facility] Anion Gap 12 5 - 15 mMol/L 04/27/2024 4:02 AM [facility] Calcium 9.3 8.5 - 10.5 mg/dL 04/27/2024 4:02 AM [facility] Est Glomerular Filtration Rate - Female 56 mL/min/1. 73 m?? 04/27/2024 4:02 AM [facility] Comment: This patient's estimated GFR was [...] AM EST Izaiah Monroe MD CHEMISTRY ORDERABLES [facility] [place] [address] * (ABNORMAL) CBC (with Diff) (04/27/2024 3:12 AM EST) White Blood Cell 7.99 4.00 - 9.50 x10(3)/mc L 04/27/2024 3:39 AM [facility] Red Blood Cell 4.16 4.00 - 5.21 x10(6)/mc L 04/27/2024 3:39 AM [facility] Hemoglobin 14.1 11.7 - 15.5 g/dL 04/27/2024 3:39 AM [facility] Hematocrit 40.9 35.7 - 45.8 % 04/27/2024 3:39 AM [facility] Mean Cell Volume 98.3(H) 82.6 - 94.4 fL 04/27/2024 3:39 AM [facility] Mean Cell Hemoglobin 33.9(H) 27.1 - 32.0 pg 04/27/2024 3:39 AM [facility] Mean Cell Hemoglobin Concentration 34.5 31.7 - 35.0 g/dL 04/27/2024 3:39 AM [facility] Platelet 200 145 - 357 x10(3)/mc L 04/27/2024 3:39 AM [facility] Mean Platelet Volume 11.4 7.6 - 12.9 fL 04/27/2024 3:39 AM [facility] RDW Standard Deviation 49.0(H) 37.0 - 46.0 fL 04/27/2024 3:39 AM [facility] RDW coefficient of variation 13.3 11.5 - 14.1 % 04/27/2024 3:39 AM [facility] NRBC% auto 0.0 % 04/27/2024 3:39 AM [facility] NRBC Absolute <0.01 <0.01 x10(3)/mc L 04/27/2024 3:39 AM [facility] Neutrophil % 54.3 % 04/27/2024 3:39 AM [facility] Neutrophil Absolute (ANC) - Automated 4.35 1.70 - 6.10 x10(3)/mc L 04/27/2024 3:39 AM [facility] Lymph % 28.2 % 04/27/2024 3:39 AM [facility] Lymph Absolute 2.25 0.90 - 3.20 x10(3)/mc L 04/27/2024 3:39 AM [facility] Monocyte % 12.4 % 04/27/2024 3:39 AM [facility] Monocyte Absolute 0.99(H) 0.30 - 0.90 x10(3)/mc L 04/27/2024 3:39 AM [facility] Eos % 4.3 % 04/27/2024 3:39 AM [facility] Eos Absolute 0.34 0.00 - 0.40 x10(3)/mc L 04/27/2024 3:39 AM [facility] Basophil % 0.5 % 04/27/2024 3:39 AM [facility] Baso Absolute 0.04 0.00 - 0.10 x10(3)/mc L 04/27/2024 3:39 AM [facility] Immature Gran % 0.3 % 3:39 AM EST [facility] Immature Gran Absolute <0.04 0.00 - 0.04 x10(3)/mc L 04/27/2024 3:39 AM EST [facility] Blood VENOUS BLOOD SPECIMEN / Unknown Venipuncture / Unknown 04/27/2024 3:12 AM EST 04/27/2024 3:25 AM EST Izaiah Monroe MD HEMATOLOGY ORDERABLE S [facility] [place] [address] * Troponin - Single (04/27/2024 3:12 AM EST) Pathologist [facility] Troponin-T, High Sensitivity 14 <=14 ng/L 04/27/2024 4:02 AM EST [facility] Comment: This patient's [...] value can be found in the [facility] Test Catalog Troponin - [email or web address]/[email or web address]/files/[email or web address] Reference: Fourth Wiggins Definition of Myocardial Infarction. Journal of the [place] [employer] 2018;72:3118-4560 Blood VENOUS BLOOD SPECIMEN / Unknown Venipuncture / Unknown 04/27/2024 3:12 AM EST 04/27/2024 3:25 AM EST Izaiah Monroe MD CHEMISTRY ORDERABLES Performing Organization Address City/[facility]/ZIP Co de Phone Number [facility] [place] [address] * Prothrombin Time (04/27/2024 3:12 AM EST) Prothrombin Time 11.3 9.4 - 12.5 sec 04/27/2024 3:48 AM EST [facility] International Normalization Ratio 1.0 <=4.9 04/27/2024 3:48 AM EST [facility] Comment: An INR < 2.0 [...] MD HEMATOLOGY ORDERABLE S Performing Organization Address City/[facility] Co de Phone Number [facility] [place] [address] * TSH (04/27/2024 3:12 AM EST) Thyroid Stimulating Hormone 2.99 0.27 - 4.20 mcIU/mL 04/27/2024 4:02 AM EST [facility] Comment: Reference Interval (mcIU/mL): ?? Females: ? First Trimester: 0.23-3.88 ? Second Trimester: 0.22-3.90 ? Third Trimester: 0.44-4.66 Blood VENOUS BLOOD SPECIMEN / Unknown Venipuncture / Unknown 04/27/2024 3:12 AM EST 04/27/2024 3:25 AM EST Izaiah Monroe MD CHEMISTRY ORDERABLES [facility] [place] [address] * Urinalysis with reflex Culture (04/27/2024 12:06 AM EST) Glucose, Urine Dipstick Negative Negative 04/27/2024 12:25 AM [facility] Protein, Urine Dipstick Negative Negative 04/27/2024 12:25 AM [facility] Bilirubin, Urine Dipstick Negative Negative 04/27/2024 12:25 AM [facility] Comment:Clinical correlation required for positive Urine Bilirubin results as false positive may occur with some drugs and drug related products. If a false positive is suspected a serum total bilirubin should be considered if clinically indicated. Urobilinogen, Urine Dipstick Normal Normal, 0.2 mg/dL, 1.0 mg/dL 04/27/2024 12:25 AM [facility] pH, Urine (dipstick) 6.5 5.0 - 8.0 04/27/2024 12:25 AM [facility] Blood, Urine Dipstick Negative Negative 04/27/2024 12:25 AM [facility] Ketone, Urine Dipstick Negative Negative 04/27/2024 12:25 AM [facility] Nitrite, Urine Dipstick Negative Negative 04/27/2024 12:25 AM [facility] Leukocytes, Urine Dipstick Negative Negative 04/27/2024 12:25 AM [facility] [address] Urine Automated 1.010 1.005 - 1.030 04/27/2024 12:25 AM [facility] Appearance, Urine Dipstick Clear Clear 04/27/2024 12:25 AM [facility] Color, Urine Dipstick Yellow Yellow, Dark Yellow 04/27/2024 12:25 AM [facility] CULTURE ADDED? 04/27/2024 12:25 AM [facility] Urine URINE SPECIMEN OBTAINED BY CLEAN CATCH PROCEDURE / Unknown Non Blood Collection / Unknown 04/27/2024 12:06 AM EST 04/27/2024 12:16 AM EST Izaiah Monroe MD URINE ORDERABLES [facility] [place] [address] * EKG 12 Lead (04/26/2024 11:01 PM EST) Ventricular rate 62 BPM MUSE SYSTEM Atrial Rate 62 BPM MUSE SYSTEM P-R Interval 222 ms MUSE SYSTEM QRS Duration 92 ms MUSE SYSTEM Q-T Interval 402 ms MUSE SYSTEM QTC Calculated (Bezet) 408 ms MUSE SYSTEM Calculated P [place] 73 degrees MUSE SYSTEM Calculated R [place] -40 degrees MUSE SYSTEM Calculated T [place] 20 degrees MUSE SYSTEM INTERPRETATION Sinus rhythm with 1st degree A-V block Left axis deviation Moderate voltage criteria for LVH, may be normal variant ( R in aVL , [place] product ) Abnormal ECG When compared with ECG of 24-NOV-2023 11:09, T wave inversion less evident in Inferior leads T wave inversion no longer evident in Anterolateral leads Confirmed by Charles COFFMAN, Butch ([id number]) on 04/30/2024 9:59:18 PM MUSE SYSTEM 04/26/2024 11:0 1 PM EST 04/30/2024 9:59 PM EST Marissa Almonte MD ECG ORDERABLES MUSE SYSTEM documented in this encounter Visit Diagnoses Not on filedocumented in this encounter Admitting Diagnoses Diagnosis Tachy-jey syndrome Sinoatrial node dysfunction documented in this encounter Administered Medications Inactive Administered Medications - up to 3 most recent administrations Medication Order MAR Action Action Date Dose Rate Site acetaminophen (Tylenol) tablet 975 mg 975 mg, Oral, EVERY 6 HOURS PRN, Starting on Tue05/01/24 at 0941, Until Tue05/01/24 at 1748, Pain, Headaches, Fever, Other, pain 1 to 10, Maximum dose of acetaminophen is 4,000 mg from all sources in 24 hours., Routine aspirin EC tablet 81 mg 81 mg, Oral, DAILY, First dose on Tue04/27/24 at 0900, Until Discontinued, Routine Given 05/01/2024 9:51 AM EST 81 mg Given 04/30/2024 7:54 AM EST 81 mg Given 04/29/2024 9:56 AM EST 81 mg atorvastatin (Lipitor) tablet 80 mg 80 mg, Oral, EVERY EVENING, First dose on Tue04/27/24 at 1700, Until Discontinued, Routine Given 04/30/2024 5:06 PM EST 80 mg Given 04/30/2024 7:54 AM EST 80 mg Given 04/29/2024 4:15 PM EST 80 mg capsaicin (Zostrix) 0.025 % cream Topical (Top), 2 TIMES DAILY, First dose on 04/28/24 at 1345, Until Discontinued Given 04/30/2024 9:00 PM EST Given 04/30/2024 9:00 AM EST 08 - Back Lower (Right) Given 04/29/2024 9:00 PM EST clopidogreL (Plavix) tablet 75 mg 75 mg, Oral, DAILY, First dose on Tue04/27/24 at 0900, Until Discontinued, Routine Given 05/01/2024 8:58 AM EST 75 mg Given 04/30/2024 7:54 AM EST 75 mg Given 04/29/2024 9:56 AM EST 75 mg heparin (porcine) (5,000 units/1 mL) subcutaneous injection 5,000 Units 5,000 Units, Subcutaneous, EVERY 12 HOURS SCHEDULED (2 times per day), First dose on Tue04/27/24 at 0000, Until Discontinued, Routine Given 05/01/2024 8:58 AM EST 5,000 Units Given 04/30/2024 9:21 PM EST 5,000 Units Given 04/29/2024 8:23 PM EST 5,000 Units lidocaine (Lidoderm) 5% patch 1 patch 1 patch, Transdermal, Administer over 12 Hours, EVERY 24 HOURS, First dose on 04/28/24 at 1315, Until Discontinued, Apply patch(es) for 12 hours, and then remove for 12 hours., Routine Patch Applied 04/28/2024 1:33 PM EST 1 patch 08- Back Lower (Right) lidocaine (Xylocaine) 1% (10 mg/mL) injection 3 mg 3 mg (0.3 mL), Subcutaneous, ONCE PRN, 1 dose, Starting on Amna 04/26/24 at 2339, Until Tue05/01/24 at 1748, for discomfort with PIV insertion, Routine losartan (Cozaar) tablet 50 mg 50 mg, Oral, DAILY, First dose on Tue04/27/24 at 0900, Until Discontinued, Routine Given 05/01/2024 8:58 AM EST 50 mg Given 04/30/2024 8:05 AM EST 50 mg Given 04/29/2024 9:56 AM EST 50 mg metoprolol succinate XL (Toprol-XL) tablet 12.5 mg 12.5 mg, Oral, DAILY, First dose (after last modification) on Tue05/01/24 at 1130, Until Discontinued, DO NOT CRUSH OR OPEN, Routine Given 05/01/2024 11:44 AM EST 12.5 mg nitroGLYcerin (Nitrostat) disintegrating tablet 0.4 mg 0.4 mg, Sublingual, EVERY 5 MIN PRN, Starting on Tue04/26/24 at 2339, Until Tue05/01/24 at 1748, Chest pain, May repeat every 5 minutes for a total of three doses. Notify provider if chest pain not relieved with nitroGLYcerin. Do not administer nitroGLYcerin if the patient has received or taken phosphodiesterase (PDE-5) inhibitors such as sildenafiL, tadalafiL or vardenafiL within the last 24 to 72 hours., Routine sodium chloride 0.9 % (flush) (BD PosiFlush Normal Saline 0.9) flush 5 mL 5 mL, Intravenous, 2 TIMES DAILY, First dose on Tue04/27/24 at 0000, Until Discontinued, Routine Given 05/01/2024 11:57 AM EST 5 mLs Given 04/30/2024 9:22 PM EST 5 mLs Given 04/30/2024 8:04 AM EST 5 mLs sodium chloride 0.9 % (flush) (BD PosiFlush Normal Saline 0.9) flush 5-20 mL 5-20 mL, Intravenous, EVERY 1 MIN PRN, Starting on Tue04/26/24 at 2339, Until Tue05/01/24 at 1748, flush, Flush pertains to all indwelling lines. Flush per protocol found in the job aid using the link provided on this medication record., Routine spironolactone (Aldactone) tablet 25 mg 25 mg, Oral, DAILY, First dose on Tue04/27/24 at 0900, Until Discontinued, DO NOT SPLIT, CRUSH OR OPEN, Routine Given 05/01/2024 8:58 AM EST 25 mg Given 04/30/2024 7:55 AM EST 25 mg Given 04/29/2024 9:56 AM EST 25 mg documented in this encounter Active and Recently Administered Medications Times are shown in EST. Scheduled Medication Order 04/29/2024 04/30/2024 05/01/2024 aspirin EC tablet 81 mg 81 mg, Oral, DAILY, First dose on Tue04/27/24 at 0900, Until Discontinued, Routine 0956 (Given - Provider: Ajay Garcia RN) 0754 (Given - Provider: Nila López RN)0858 (AUG Hold - Provider: Admin Adt - Reason: Transfer to a Procedural area)0900 (Not Given - Provider: Nila López RN - Reason: See comment - Comment: given earlier for procedure)1656 (MAR Unhold - Provider: Admin Adt) 0951 (Given - Provider: Nila López RN) atorvastatin (Lipitor) tablet 80 mg 80 mg, Oral, EVERY EVENING, First dose on Tue04/27/24 at 1700, Until Discontinued, Routine 1615 (Given - Provider: Ajay Garcia RN) 0754 (Given - Provider: Nila López RN)0858 (MAR Hold - Provider: Admin Adt - Reason: Transfer to a Procedural area)1656 (MAR Unhold - Provider: Admin Adt)1706 (Given - Provider: Nila López, RN) capsaicin (Zostrix) 0.025 % cream Topical (Top), 2 TIMES DAILY, First dose on Tue04/28/24 at 1345, Until Discontinued 1004 (Given - Provider: Ajay Garcia RN)2100 (Given - Provider: Isabelle Oden, TANESHA) 0858 (MAR Hold - Provider: Admin Adt - Reason: Transfer to a Procedural area)0900 (Given - Provider: Nila López RN)1656 (MAR Unhold - Provider: Admin Adt)2100 (Given - Provider: Isabelle Oden, TANESHA) 0900 (Not Given - Provider: Nila López RN - Reason: Patient/family refused) clopidogreL (Plavix) tablet 75 mg 75 mg, Oral, DAILY, First dose on Tue04/27/24 at 0900, Until Discontinued, Routine 0956 (Given - Provider: Ajay Garcia RN) 0754 (Given - Provider: Nila López RN)0858 ([facility] Hold - Provider: Admin Adt - Reason: Transfer to a Procedural area)0900 (Not Given - Provider: Nila López RN - Reason: See comment - Comment: given earlier for procedure)165 ([facility] Unhold - Provider: Admin Adt) 0858 (Given - Provider: Nila López RN) heparin (porcine) (5,000 units/1 mL) subcutaneous injection 5,000 Units 5,000 Units, Subcutaneous, EVERY 12 HOURS SCHEDULED (2 times per day), First dose on Tue04/27/24 at 0000, Until Discontinued, Routine 0956 (Given - Provider: Ajay Garcia RN)2023 (Given - Provider: Isabelle Oden RN) 0858 ([facility] Hold - Provider: Admin Adt - Reason: Transfer to a Procedural area)0900 (Not Given - Provider: Nila López RN - Reason: Per MD Order - Comment: hold for ep study)165 ([facility] Unhold - Provider: Admin Adt)212 (Given - Provider: Isabelle Oden RN) 0858 (Given - Provider: Nila López RN) lidocaine (Lidoderm) 5% patch 1 patch 1 patch, Transdermal, Administer over 12 Hours, EVERY 24 HOURS, First dose on Tue04/28/24 at 1315, Until Discontinued, Apply patch(es) for 12 hours, and then remove for 12 hours., Routine 0133 (Patch Removed - Provider: Isabelle Oden RN)1315 (Not Given - Provider: Ajay Garcia RN - Reason: Patient/family refused) 0858 ([facility] Hold - Provider: Admin Adt - Reason: Transfer to a Procedural area)1315 (Hold - Provider: Nila López RN - Reason: Contraindicated - Comment: pt back from procedure and is not able to been rolled at this time. on bed rest order.)165 ([facility] Unhold - Provider: Admin Adt) 1315 (Due) losartan (Cozaar) tablet 50 mg 50 mg, Oral, DAILY, First dose on Tue04/27/24 at 0900, Until Discontinued, Routine 0956 (Given - Provider: Ajay Garcia RN) 0805 (Given - Provider: Nila López RN)0858 (AUG Hold - Provider: Admin Adt - Reason: Transfer to a Procedural area)1656 (AUG Unhold - Provider: Admin Adt) 0858 (Given - Provider: Nila López RN) metoprolol succinate XL (Toprol-XL) tablet 12.5 mg 12.5 mg, Oral, DAILY, First dose (after last modification) on Tue05/01/24 at 1130, Until Discontinued, DO NOT CRUSH OR OPEN, Routine 1144 (Given - Provider: Nila López RN) oxyCODONE (Roxicodone) tablet 2.5 mg (COMPLETED) 2.5 mg, Oral, ONCE, 1 dose, On Tue04/30/24 at 1900, Routine 1851 (Given - Provider: Nila López RN) sodium chloride 0.9 % (flush) (BD PosiFlush Normal Saline 0.9) flush 5 mL 5 mL, Intravenous, 2 TIMES DAILY, First dose on Tue04/27/24 at 0000, Until Discontinued, Routine 0958 (Given - Provider: Ajay Garcia RN)2023 (Given - Provider: Isabelle Oden RN) 0804 (Given - Provider: Nila López RN)0858 (AUG Hold - Provider: Admin Adt - Reason: Transfer to a Procedural area)1656 (AUG Unhold - Provider: Admin Adt)2122 (Given - Provider: Isabelle Oden RN) 1157 (Given - Provider: Nila López RN) spironolactone (Aldactone) tablet 25 mg 25 mg, Oral, DAILY, First dose on Tue04/27/24 at 0900, Until Discontinued, DO NOT SPLIT, CRUSH OR OPEN, Routine 0956 (Given - Provider: Ajay Garcia RN) 0755 (Given - Provider: Nila López RN)0858 (AUG Hold - Provider: Admin Adt - Reason: Transfer to a Procedural area)0900 (Not Given - Provider: Nila López RN - Reason: See comment - Comment: given earlier for procedure)1656 (AUG Unhold - Provider: Admin Adt) 0858 (Given - Provider: Nila López RN) PRN Medication Order 04/29/2024 04/30/2024 05/01/2024 acetaminophen (Tylenol) tablet 650 mg (CANCELED) 650 mg, Oral, EVERY 6 HOURS PRN, Starting on Amna 04/26/24 at 2339, Until Tue05/01/24 at 0941, Pain, Headaches, Fever, Other, pain 1 to 10, Maximum dose of acetaminophen is 4,000 mg from all sources in 24 hours., Routine 1545 (Given - Provider: Katelyn Friedman RN - Comment: headache)2021 (Given - Provider: Isabelle Oden RN - Comment: back aches) 0858 (AUG Hold - Provider: Admin Adt - Reason: Transfer to a Procedural area)1541 (AUG Unhold - Provider: Agnes Law RN)1706 (Given - Provider: Nila López RN) 0156 (Given - Provider: Isabelle Oden RN)0900 (Given - Provider: Nila López RN) acetaminophen (Tylenol) tablet 975 mg 975 mg, Oral, EVERY 6 HOURS PRN, Starting on Tue05/01/24 at 0941, Until Tue05/01/24 at 1748, Pain, Headaches, Fever, Other, pain 1 to 10, Maximum dose of acetaminophen is 4,000 mg from all sources in 24 hours., Routine fentaNYL (pf) (50 mcg/mL) multi-dose injection 25 mcg (CANCELED)(Linked Group 1) 25 mcg, Intravenous, EVERY 5 MIN PRN, Starting on 04/30/24 at 1344, Until Tue04/30/24 at 1557, Pain, Moderate to severe pain (6-10 out of 10), Hold for respiratory rate less than 10 per minute. Maximum dose 200 mcg over one hour, including OR administration. If ordered with HYDROmorphone or morphine, give HYDROmorphone or morphine first and use fentaNYL for breakthrough pain., PACU Recovery, Routine 1544 (Given - Provider: Agnes Law RN) lidocaine (Xylocaine) 1% (10 mg/mL) injection 3 mg 3 mg (0.3 mL), Subcutaneous, ONCE PRN, 1 dose, Starting on Amna 04/26/24 at 2339, Until Tue05/01/24 at 1748, for discomfort with PIV insertion, Routine 0858 ([facility] Hold - Provider: Admin Adt - Reason: Transfer to a Procedural area)165 ([facility] Unhold - Provider: Admin Adt) nitroGLYcerin (Nitrostat) disintegrating tablet 0.4 mg 0.4 mg, Sublingual, EVERY 5 MIN PRN, Starting on Tue04/26/24 at 2339, Until Tue05/01/24 at 1748, Chest pain, May repeat every 5 minutes for a total of three doses. Notify provider if chest pain not relieved with nitroGLYcerin. Do not administer nitroGLYcerin if the patient has received or taken phosphodiesterase (PDE-5) inhibitors such as sildenafiL, tadalafiL or vardenafiL within the last 24 to 72 hours., Routine 0858 ([facility] Hold - Provider: Admin Adt - Reason: Transfer to a Procedural area)1655 ([facility] Unhold - Provider: Admin Adt) oxyCODONE (Roxicodone) tablet 2.5 mg (CANCELED) 2.5 mg, Oral, EVERY 6 HOURS PRN, Starting on Tue05/01/24 at 0024, Until Tue05/01/24 at 0714, Pain, Routine 0155 (Given - Provider: Isabelle Oden RN - Comment: left shoulder) sodium chloride 0.9 % (flush) (BD PosiFlush Normal Saline 0.9) flush 5-20 mL 5-20 mL, Intravenous, EVERY 1 MIN PRN, Starting on Tue04/26/24 at 2339, Until Tue05/01/24 at 1748, flush, Flush pertains to all indwelling lines. Flush per protocol found in the job aid using the link provided on this medication record., Routine 0858 ([facility] Hold - Provider: Admin Adt - Reason: Transfer to a Procedural area)165 ([facility] Unhold - Provider: Admin Adt) Linked Groups Order Group 1: fentaNYL (pf) (50 mcg/mL) multi-dose injection 12.5 mcg (CANCELED) 12.5 mcg, Intravenous, EVERY 5 MIN PRN, Starting on Tue04/30/24 at 1344, Until Tue04/30/24 at 1557, Pain, Mild to moderate pain (1-5 out of 10), Hold for respiratory rate less than 10 per minute. Maximum dose 200 mcg over one hour, including OR administration. If ordered with HYDROmorphone or morphine, give HYDROmorphone or morphine first and use fentaNYL for breakthrough pain., PACU Recovery, Routine Or fentaNYL (pf) (50 mcg/mL) multi-dose injection 25 mcg (CANCELED)Jump to med 25 mcg, Intravenous, EVERY 5 MIN PRN, Starting on Tue04/30/24 at 1344, Until Tue04/30/24 at 1557, Pain, Moderate to severe pain (6-10 out of 10), Hold for respiratory rate less than 10 per minute. Maximum dose 200 mcg over one hour, including OR administration. If ordered with HYDROmorphone or morphine, give HYDROmorphone or morphine first and use fentaNYL for breakthrough pain., PACU Recovery, Routine documented in this encounter Additional Health Concerns Infection Onset Date Last Indicated Resolved Time Rule Out Respiratory 04/27/2024 04/27/2024 024 6:34 AM EST documented as of this encounter Care Teams Case Aide Relationship Specialty Start Date End Date Masood Pierson MD [address] [place] [address] PCP - General Family Medicine 11/24/23 documented as of this encounter
--- OUTSIDE RECORDS SUMMARY | 2024-07-25 15:43 | XMS_ITS | Encounter Summary ---
Author Organization [facility] Address [facility] [place] [address] Care Team Providers Care Canning Machine Operator Name Role Phone Masood Pierson MD Primary Care Provider [phone] Reason for Visit * Reason Comments Coronary Artery Disease Encounter Details Date Type Department Care Team (Latest Contact Info) Description 06/04/2024 3:20 PM EST Office Visit Cardiology at [address] [phone] Izaiah Meyer MD [facility] [place] [address] Tachy-beatrice syndrome; ASCVD (arteriosclerotic cardiovascular disease); Cardiomyopathy, ischemic Social History Tobacco Use Types [...] in a residential (including now)? No 11/01/2023 Housing Stability Vital Sign Answer Mukesh e Recorded In the last 12 months, was t here a time when you were not able to pay the mortgage or rent on time? No 04/27/2024 In the past 12 months, how m any times have you moved where you were living? 0 04/27/2024 At any time in the past 12 m [facility], were you homeless or living in a residential (including now)? No 04/27/2024 IPV Inpatient Questions [...] Pulse 60 06/04/2024 3:22 PM EST Temperature - - Respiratory Rate - - Oxygen Saturation - - Inhaled Oxygen Concentration - - Weight 71.2 kg (157 lb) 06/04/2024 3:22 PM EST Height 152.4 cm (5') 06/04/2024 3:22 PM EST Body Mass Index 30.66 06/04/2024 3:22 PM EST documented in this encounter Progress Notes * Izaiah Meyer MD - 06/04/2024 3:20 PM EST Images from the original note were not included. Subjective: Patient ID: Lyla Goodrich is a 83 y.o. female who presents on follow-up for: Chief Complaint Patient presents with Coronary Artery Disease HPI Last seen by me 11/2023, at which time no changes were made Intercurrently, she was found to be bradycardic at an OV with her pain specialist. She was admittedlocally where a fluctuating HR was found with associated LH. She was transferred to [facility], where atrial tachycardia ablation, as well as dcPPM were performed. Since then, she has not felt any better or worse, repetitively noting that she has been without significant symptoms through all her cardiac maladies this year. Denies palpitations. HR at home is sometimes in the 100s No bleeding on dapt + significant GERD Current Outpatient Medications Medication Instructions acetaminophen (TYLENOL) 975 mg, Oral, EVERY 6 HOURS PRN ASCORBIC ACID (VITAMIN C ORAL) aspirin EC 81 mg, Oral, DAILY atorvastatin (LIPITOR) 80 mg, Oral, EVERY EVENING CALCIUM ORAL 1 capsule, Oral, DAILY clopidogreL (PLAVIX) 75 mg, Oral, DAILY CYANOCOBALAMIN, VITAMIN B-12, (VITAMIN B-12 ORAL) 1 capsule, Oral, DAILY losartan (COZAAR) 50 mg, Oral, DAILY metoprolol succinate XL (TOPROL-XL) 12.5 mg, Oral, DAILY nitroGLYcerin (NITROSTAT) 0.4 mg, Sublingual, EVERY 5 MIN PRN spironolactone (ALDACTONE) 25 mg, Oral, DAILY Patient Active Problem List Diagnosis Cardiomyopathy, ischemic 10/2023 (at time of NSTE-ACS): EF 64%, basal inferior HK. No VHD ASCVD (arteriosclerotic cardiovascular disease) Cardiac Catheterization: (10/2023) RIGHT dominance Indication: NSTE-ACS LVEDP 15 Artery Lesion Intervention LM mild LAD mild LCx Prox 60 Mid 80 3.5 x 15 Andrea 3.5 x 15 Andrea RCA Mid AoCTO. 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 SN# [id number] - Atrial Lead: [employer] [id number]. SN# [id number] - RV Lead: [employer] [id number]. SN# [id number] Ascending aorta dilatation 10/2023 TTE: ascending 46 mm. Hyperpiesia Objective: BP 123/73 (BP Location (NBP): Right arm, Patient Position: Sitting) Pulse 60 Ht 152.4 cm (5') Wt 71.2 kg (157 lb) BMI 30.66 kg/m?? Gen: pleasant female in NAD Cor: rrr, s1/s2 of nl character and amplitude, no pathologic m/r/g. Estimated RAP not elevated. Carotids with normal upstroke without bruit. Device site c/d/i Pulm: CTAB. Normal diaphragmatic movement without use of accessory muscles Device check: brief atrial runs (< 10 seconds). Modal HR is at LRL of 60; second mode at around 100 Assessment and Plan: ASCVD (arteriosclerotic cardiovascular disease) No angina per history. - Anti-Thrombosis: asa 81, plavix 75. The latter through 10/2024 - Anti- Lipemic: lipitor 80 - Anti- Anginals: GTN PRN, toprol 12.5 Cardiomyopathy, ischemic No failure by history nor exam. - Diuresis: none - Cardioprotection: as directed for HTN Tachy-beatrice syndrome Well functioning device. No arrhythmias detected. However, she may have some degree of irritability(from inflammation) versus her own HR. Regardless, she is without symptoms, and until an arrhythmiccause of these is noted, advancing [facility] would only provide her symptoms - Pacer check in ~ 2 months for initial programming RTC 2 months Izaiah Meyer MD documented in this encounter Miscellaneous Notes * Assessment & Plan Note - Izaiah Meyer MD - 06/04/2024 4:31 PM EST Associated Problem(s): Tachy-beatrice syndrome Well functioning device. No arrhythmias detected. However, she may have some degree of irritability(from inflammation) versus her own HR. Regardless, she is without symptoms, and until an arrhythmiccause of these is noted, advancing [facility] would only provide her symptoms - Pacer check in ~ 2 months for initial programming * Assessment & Plan Note - Izaiah Meyer MD - 06/04/2024 4:30 PM EST Associated Problem(s): Cardiomyopathy, ischemic No failure by history nor exam. - Diuresis: none - Cardioprotection: as directed for HTN * Assessment & Plan Note - Izaiah Meyer MD - 06/04/2024 4:29 PM EST Associated Problem(s): ASCVD (arteriosclerotic cardiovascular disease) No angina per history. - Anti-Thrombosis: asa 81, plavix 75. The latter through 10/2024 - Anti- Lipemic: lipitor 80 - Anti- Anginals: GTN PRN, toprol 12.5 documented in this encounter Plan of Treatment Upcoming Encounters Date Type Department Care Team (Late st Contact Info) Description 08/07/2024 1:00 PM EST Office Visit Cardiology at [address] [phone] Izaiah Meyer MD [facility] [place] [address] 08/09/2024 10:00 AM EST Hospital Encounter Non-Invasive [place] [phone] Arrived documented as of this encounter Visit Diagnoses Diagnosis Tachy-beatrice syndrome Sinoatrial node dysfunction ASCVD (arteriosclerotic cardiovascular disease) Unspecified cardiovascular disease Cardiomyopathy, ischemic Other specified forms of chronic ischemic heart disease documented in this encounter Care Teams Canning Machine Operator Relationship Specialty Start Date End Date Masood Pierson MD [address] [place] [address] PCP - General Family Medicine 11/24/23 documented as of this encounter
--- OUTSIDE RECORDS SUMMARY | 2024-07-25 15:43 | XMS_ITS | Encounter Summary ---
Author Organization [facility] [place] [address] Care Team Providers Care Record Producer Name Role Phone Masood Pierson MD Primary Care Provider [phone] Encounter Details Date Type Department Care Team (Latest Contact Info) Description 06/04/2024 Travel Social History Tobacco Use Types Packs/Day Years Used Date Smoking Tobacco: Former Smokeless Tobacco: Never Alcohol Use Standard Drinks/Week Comments Not Currently 0 (1 standard drink = 0.6 oz pur e alcohol) [facility] Utilities Answer Date [...] a long term (including now)? No 11/01/2023 Housing Stability Vital [...] were you homeless or living in a long term (including now)? No 04/27/2024 DH IPV Inpatient Questions Answer Date Recorded [...] 1:00 PM EST Office Visit Cardiology at [address] [phone] Izaiah Meyer MD [facility] [place] [address] 08/09/2024 10:00 AM EST Hospital Encounter Non-Invasive [place] [phone] Arrived documented as of this encounter Visit Diagnoses Not on filedocumented in this encounter Care Teams Record Producer Relationship Specialty Start Date End Date Masood Pierson MD [address] [place] [address] PCP - General Family Medicine 11/24/23 documented as of this encounter
--- OUTSIDE RECORDS SUMMARY | 2024-07-25 15:43 | XMS_ITS | Encounter Summary ---
Author Organization [facility] Address [facility] [place] [address] Care Team Providers Care Plastics Engineering Teacher Name Role Phone Masood Pierson MD Primary Care Provider [phone] Reason for Referral * Home Health Care (Routine) - Authorized Specialty Diagnoses / Procedures Referred By John hunt Referred To Contact Diagnoses Tachy-jey syndrome Marissa Almonte MD [facility] [place] [place] [address] [facility] [address] [place] [address] Referral ID Status Reason Start Date Expiration Date Visits Requested Visits Authorized [id number] Authorized Consult, Test & Treat 05/01/2024 10/28/2024 999 999 Reason for Visit * Auth/Cert (Routine) Specialty Diagnoses / Procedures Referred By John t Referred To Contact Diagnoses Tachy-jey syndrome Tachy Jey syndrome Procedures ER IPI ADMIT Lillie Miles MD [facility] [place] [place] [address] [facility] Referral ID Status Reason Start Date Expiration Date Visits Re quested Visits Authorized [id number] 1 1 Encounter Details Date Type Department Care Team (Latest Contact Info) Description 04/26/2024 10:42 PM EST - 05/01/2024 3:48 PM EST Hospital Encounter Heart and Vascular Unit Level 4 Wing B at [facility] [place] [address] Jammie Finnegan MD [facility] [place] [address] Jose Juan Reynoso MD [facility] [place] [address] Marissa Almonte MD [facility] [place] [address] Lillie Miles MD [facility] [place] [address] Tachy-jey syndrome Discharge Disposition: Home with VNA Social History Tobacco Use Types Packs/Day Years Used Date Smoking Tobacco: Former Smokeless Tobacco: Never Alcohol Use Standard Drinks/Week Comments Not Currently 0 (1 standard drink = 0.6 oz pur e alcohol) [facility] Utilities Answer Date Recorded In the past 12 months has e [employer], gas, oil, or water [employer] threatened to shut off services in your [...] in a assisted (including now)? No 11/01/2023 Housing Stability Vital Sign Answer Mukesh e Recorded In the last 12 months, was t here a time when you were not able to pay the mortgage or rent on time? No 04/27/2024 In the past 12 months, how m any times have you moved where you were living? 0 04/27/2024 At any time in the past 12 m [facility], were you homeless or living in a assisted (including now)? No 04/27/2024 DH IPV Inpatient [...] Sign Reading Time Taken Comments Blood Pressure 129/63 05/01/2024 11:44 AM EST Pulse 67 05/01/2024 11:44 AM EST Temperature 36.6 ??C (97.9 ??F) 05/01/2024 11:[address] Respiratory Rate 18 05/01/2024 7:15 AM EST Oxygen Saturation 98% 05/01/2024 11:44 AM EST Inhaled Oxygen Concentration - - Weight 69.9 kg (154 lb) 05/01/2024 12:00 AM EST Height 152.4 cm (5') 04/26/2024 10:50 PM EST Body Mass Index 30.08 04/26/2024 10:50 PM EST documented in this encounter Discharge Summaries * Marissa Almonte MD - 05/01/2024 12:48 PM EST Images from the original note were not included. Discharge Summary Patient Name: Lyla Goodrich Patient Age: 83 y.o. Language: Urdu Race: White Ethnicity: Not nor Admit date: [...] withfluctuating HR and dizziness. Patient transferred to [facility] 04/26 for further management and c/f tachybradycardia. [...] Inpatient Provider Contact Information: Marissa Almonte MD [phone] For questions regarding this document or issues relating to this hospitalization on the Medical Service, please contact your inpatient physician through the [facility] Adult Basic Education Manager . Issues afterhours and on weekends will be handled by the Hospitalist staff on-call. Discharge Diagnoses (Hospital Problems) and Secondary Diagnoses (Chronic Problems): Active Hospital Problems Diagnosis Tachy-jey syndrome Pacemaker - Empower2adapt Resolved Hospital Problems No resolved problems to display. Active Non-Hospital Problems Diagnosis Cardiomyopathy, ischemic Ascending aorta dilatation Hyperpiesia ASCVD (arteriosclerotic cardiovascular disease) Operations/Major Procedures/Imaging: Operations: Procedure(s): ELECTROPHYSIOLOGY PROCEDURE 04/30/2024 Other Major Procedures: Results for orders placed or performed during the hospital encounter of 04/26/24 XR Chest PA & Lateral (Generic) (Exam End: 05/01/2024 6:03 AM) Result Value WORKSTATION ID [id number] Narrative EXAMINATION: XR CHEST PA AND LATERAL [...] who have questions please contact the health infant caregiver that requested your imaging first. Electronically signed by: Wilson Hester MD, [facility] ([phone]), at 05/01/2024 1:20 PM History of Presentation [...] so they told me to go to [facility] ER to get checked out, so I went there, and sent me to [facility] to get a pacemaker. I feel fine right now. No complaints. I haven't eaten all day long. Can I have some dinner now, please? ... Patient subsequently went to [facility] ER ([place], [place]) for further evaluation of her tachy-jey syndrome. In [facility] ER, patient was afebrile @ 36.4 degrees Celsius, HR 56, RR 14, O2 sat 94% on room air, and BP 123/73 (04/25/2024, 3:33pm). Labs in [facility] ER were noted for: Troponin #1 17 [...] 7:37pm). COVID- (04/24/2024, 8:52pm). Additional testing in [facility] ER included: EKG: none performed in [facility] ER Patient was subsequently diagnosed with the [...] PO daily as patient awaited transfer to [facility] for anticipated CARDS Service evaluation and anticipated [...] was observed. Patient was subsequently [facility] and admitted to the [...] PO daily as patient awaited transfer to [facility] for anticipated CARDS Service evaluation and anticipated PPM placement in the 04/27/2024 am. To address #2, patient is being held off her home-scheduled spironolactone 25mg PO daily (last administered at [facility] ER on 04/25/2024, 8:30am; 04/26/2024, 7:56am), given the potential for diuretic- mediated magne-uresis, as patient awaits repeat Mg level testing (04/27/2024, 3:20am). To address #3, patient is being held off her home-scheduled spironolactone 25mg PO daily (last administered at [facility] ER on 04/25/2024, 8:30am; 04/26/2024, 7:56am), given the potential for diuretic- mediated natri-uresis, as patient awaits repeat Na level testing (04/27/2024, 3:20am). To address #4, patient has been advised to follow up with her PCP Dr. Masood Pierson ([place], [place]) to consider outpatient CT chest/abd/pelvis with IV contrast to screen for undiagnosed malignancy or solicitation of outpatient Heme-Onc Service evaluation of chronic peripheral monocytosis as the differential for chronic peripheral monocytosis in the elderly population is: (1) leukemia, lymphoma, or other solid tumor(s); (2) acute viral syndrome. While bacterial infections including TB, tularemia, brucellosis, leptospirosis, listeriosis, and acute ho-chunk valve endocarditis can cause acute peripheralmonocytosis, this [...] contra-indication in the elderly population (cf., 2022 [place] [employer]'s Beers Criteria for Potentially Inappropriate Medications in the Elderly). Patient also continues to be held off her home- scheduled metoprolol XL 12.5mg PO daily while in [facility] HVU bed #468-A. Hospital Course (per problem [...] 192 206 Last 3 Lytes Recent Labs 05/01/24 0217 04/30/24 0228 04/29/24 0201 NA 140 139 137 K 4.2 4.0 4.3 CL 106 106 103 CO2 23 22 23 BUN 17 22* 30* CREATININE 0.92 0.89 1.09 Last 3 LFTs Recent Labs 10/30/23 2205 AST 36* ALT 17 ALKPHOS 54 BILITOT 0.5 Last Ca, Mg, Phos Recent Labs 05/01/24 021 CALCIUM 8.6 MAGNESIUM 0.91 Last 3 Coags Recent Labs 04/27/24 0312 PT 11.3 INR 1.0 Last 3 ProBNP, Trop, CK No results for input(s): CK, TROPONINT, PROBNP in the last 168 hours. Last 3 TFT Recent Labs 04/27/24 0312 10/30/232204 TSH 2.99 3.35 Last 3 Lipids Recent [...] 12.5 daily. You will follow-up with your business architect for further medication titration. Call your PCP [...] of 8AM-5PM please call the Cardiology Clinic [phone] to speak with a nurse. All other hours please call the Hospital Adult Basic Education Manager [phone] and ask to speak to the cardiovascular hospitalist on-call. For any emergent questions, please call 911 or visit your nearest emergency department/urgent care center Follow up Appointments: Doctor Where Phone # Date Time PCP Masood Pierson MD [address] [place] [address] April 10:30 am Refractory Bricklayer Izaiah Meyer MD [facility] [phone] Tuesday June 04, 2024 3:20 pm Please arrive before 3:10pm for check in General Instructions FINAL PACEMAKER RECOMMENDATIONS: 1. Standard post implant discharge instructions (see below): 2. Medications as listed above. You may use ice packs over the incision. Make sure to use a cloth bin packer (such as a towel) in between the [...] F. The office scheduling phone number is [phone]. ARM MOVEMENT RESTRICTIONS POST-IMPLANT - Do not [...] please call the Cardiac ElectrophysiologyTriage Nurse at [phone], option 3. Future Appointments and Orders Future Appointments and Orders Future Appointments Provider Department Dept Phone 06/04/2024 3:20 PM Izaiah Meyer MD [facility] at: [facility] [address] [phone] 10/24/2024 11:00 AM Izaiah Meyer MD [facility] at: [facility] [address] [phone] Future Orders Complete By Expires Referral to Home Health [REF34 Custom] As directed Process Instructions: If no progress note charted, please enter Clinical details in comments. Scheduling Instructions: Comments: Please evaluate Lyla Goodrich for admission to Home Health. [address] [place] [address] Phone Number: [phone] (home) Date of : 1940 Inpatient DOCUMENTATION FOR VNA SERVICES (INCLUDING THOSE PATIENTS WITH MEDICARE COVERAGE REQUIRING HOME VNA SERVICES AND/OR HOSPICE SERVICES) PATIENT'S LOCATION: Lyla Goodrich [address] [facility] [address] [phone] (home) Cell: Telephone Information: In discussion with the attending physician, it is certified that this patient is under their care and that they, or a Nurse Practitioner, Clinical Nurse specialist or Physician Boilers And Pressure Vessels Inspector who is working directly with them, [...] activities, ie. dressing/bathing HOME HEALTH CARE AGENCY: [facility] [address] [place] [address] START OF CARE: within 24-48 hours of [...] Masood Pierson MD [address] / [facility] [address] . All VNA agencies which cover the area of patient's residence have been reviewed, either verbally or in writing, and patient/family have chosen the home health care agency noted. Questions: Disciplines Requested: Nursing Physical Therapy Occupational Therapy Home Health Aide Discharge References/Attachments None Greater than 30 minutes was spent on this discharge including documentation, ihur-ve-hdhi time withthe patient, patient education, new order clerk, coordination with pharmacy and other patient care. documented in this encounter Discharge Instructions * Discharge Instructions* Kwame Amaya PA - 05/01/2024 12:20 PM EST FINAL PACEMAKER RECOMMENDATIONS: 1. Standard post implant discharge instructions (see below): 2. Medications as listed above. You may use ice packs over the incision. Make sure to use a cloth bin packer (such as a towel) in between the [...] F. The office scheduling phone number is [phone]. ARM MOVEMENT RESTRICTIONS POST-IMPLANT - Do not [...] please call the Cardiac ElectrophysiologyTriage Nurse at [phone], option 3. * Patient Instructions* Marissa Almonte [...] 12.5 daily. You will follow-up with your business architect for further medication titration. Call your PCP [...] of 8AM-5PM please call the Cardiology Clinic [phone] to speak with a nurse. All other hours please call the Hospital Adult Basic Education Manager [phone] and ask to speak to the cardiovascular hospitalist on-call. For any emergent questions, please call 911 or visit your nearest emergency department/urgent care center Follow up Appointments: Doctor Where Phone # Date Time PCP Masood Pierson MD [address] [place] [address] April 10:30 am Refractory Bricklayer Izaiah Meyer MD [facility] [phone] Tuesday June 04, 2024 3:20 pm Please [...] Cardiac Electrophysiology Post-Implant Device Interrogation Lyla Goodrich [id number] 05/01/2024 History: Lyla Goodrich is a 83 y.o. female with a history of symptomatic SVT and conversion pauseswho underwent EPS and partial atrial tachycardia ablation followed by implantation of a dual lead [employer] pacemaker. Physical Exam: Vitals: 05/01/24 0502 [...] to auscultation bilaterally Neuro- A&Ox3 Device Interrogation: [employer] Accolade MRI [id number] 04/30/2024 RA RV DDDR @ 60/100 RhythmIQ [...] followed by implantation of a dual lead [employer] pacemaker. - Appropriate device function post-implant - CXR negative for post-implant complications Plan: 1. Reviewed standard post-implant discharge instructions (see patient instructions) including arm restrictions, wound care, bathing, and driving. 2. EP will schedule outpatient follow up. Provider: FLAVIO Alanis EP Consult attending physician: Xi Carrington MD EP Consult positional pager #[phone](EPMD) EP Device interrogation positional pager # [phone] * Lexi Cruz, OT - 05/01/2024 10:24 AM EST Occupational Therapy Evaluation Patient profile: Lyla Goodrich is a 83 y.o. female admitted on 04/26/2024 with a PMH of HFpEF, hx ASCVD (STEMI s/p PCI RCA 10/2023), HTN, hx urinary incontinence, hx tobacco use (not current, no COPDnoted) who presented to OSH 04/25/24 with fluctuating HR and dizziness. Patient transferred to [facility] 04/26 for further management and c/f tachybradycardia. [...] to precautions Vision & Perception: corrective lenses general matcher Communication: NISQUALLY; has B aids Range of motion, strength, [...] and measurable assessment of functional outcome. Pager: [phone] Lexi Cruz OTR/L Occupational Therapy Rehabilitation Department [...] fluctuating HR and dizziness. Patient transferred to [facility] 04/26 for further management and c/f tachybradycardia. [...] a first floor, single level apartment in [place], [place] Stairs: 1 step/threshold to enter with [...] the operated side for 6 weeks. Diet: [facility]/Cardiac Diet Mobility and Positioning Recommendations: Pt. to [...] today in conjunction with OT. 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 Recent Labs 04/30/2422704/29/2420004/28/24 0332 GLUCOSE 111 109 101 Imaging: No [...] fluctuating HR and dizziness. Patient transferred to [facility] 04/26 for further management and c/f tachybradycardia. [...] 24 PT: OT: PCP Masood Pierson MD [phone] * Agnes Law RN - 04/30/2024 4:15 PM EST Pt sleeping off and on. Yovana po sips. Conversing well. C/o minor pain at incision site. Report to RNU * Marissa Almonte MD - 04/29/2024 12:58 PM EST CV HOSPITALIST 2 - [facility] DAILY PROGRESS NOTE Page [phone] to reach a provider 10/01 Admit Date: [...] Status: She is alert. Labs: Recent Labs 04/29/2420004/28/2433104/27/24311 WBC 7.51 8.16 7.99 HGB 13.6 14.8 14.1 HCT 40.1 41.7 40.9 PLATELET 206 203 200 MCV 99.8* 99.3* 98.3* Recent Labs 04/29/2420004/28/2433104/27/24311 NA 137 141 142 CL 103 105 [...] in the last 168 hours. Recent Labs 04/29/2420004/28/2433104/27/24311 GLUCOSE 109 101 112 Telemetry: I have [...] fluctuating HR and dizziness. Patient transferred to [facility] 04/26 for further management and c/f tachybradycardia. [...] capsaicin Diet: Daily Healthy Menu Choices/Cardiac diet ([facility]-Diet) NPO diet (Give Meds) DVT Prophlaxis: SCDs, SQH Code status: Do NOT Attempt CPR - Inpatient Disposition: Discharge Planning: AM-PAC Basic Mobility Raw Score: 23 PT: OT: PCP Masood Pierson MD [phone] * Deja Murray - 04/28/2024 5:09 PM EST Spiritual Care Visit Completed * Marissa Almonte MD - 04/28/2024 4:17 PM EST CV HOSPITALIST 2 - [facility] DAILY PROGRESS NOTE Page [phone] to reach a provider 10/01 Admit Date: [...] fluctuating HR and dizziness. Patient transferred to [facility] 04/26 for further management and c/f tachybradycardia. [...] capsaicin Diet: Daily Healthy Menu Choices/Cardiac diet ([facility]-Diet) DVT Prophlaxis: SCDs, SQH Code status: Do NOT Attempt CPR - Inpatient Disposition: Discharge Planning: AM-PAC Basic Mobility Raw Score: 24 PT: OT: PCP Masood Pierson MD [phone] * Izaiah Cain MD - 04/28/2024 9:11 [...] Prox 60 Mid 80 3.5 x 15 [place] 3.5 x 15 Andrea RCA Mid AoCTO. Collats from Cx 4.0 x 38 Andrea NB: RCA initially intervened; Cx 2 days later Brief HPI:Lyla Goodrich is a 83 y.o. female with PMH of ASCVD s/p recent RADHA to circ/OM and PCI to RCA (ABSORPTION PLANT OPERATOR), HFpEP who presents with fatigue for the [...] RADHA to circ/OM and PCI to RCA (ABSORPTION PLANT OPERATOR), HFpEP who presents with fatigue for the [...] (risk less than 1:100 with cryoablation), rare CVA/PA/ if left heart catheterizationis required, DVT and [...] asx and hds. Izaiah Cain MD 04/28/2024 Peripatologist Pager: [phone] Associated attestation - Dre Powers MD - [...] tachycardia at EPS. Dre Powers MD, PhD, [facility] Cardiac Electrophysiology * Peter Najera, RN - 04/28/2024 4:54 AM EST No acute events overnight. Patient was in Sinus to Sinus Tach which can reach as high as the 140s with activity. Resting HR is in the 50s-60s. Otherwise the night was uneventful. documented in this encounter H&P Notes * Izaiah King MD - 04/30/2024 8:02 AM EST EP FELLOW INPATIENT PRE PROCEDURE H&P Referring Provider: JAMMIE FINNEGAN XAVIER L RAMACHANDRA, NAYANA Attending Provider: Dre Powers MD PhD Planned Procedure: EP study and supraventricular tachycardia ablation and/or permanent pacemaker implant Background and rationale for the procedure: Lyla Goodrich is a 83 y.o. woman with ASCVD s/p recentDES to circ/OM and PCI to RCA (ABSORPTION PLANT OPERATOR), HFpEP who presents with fatigue for the [...] so they told me to go to [facility] ER to get checked out, so I went there, and sent me to [facility] to get a pacemaker. I feel [...] and CAD s/p cardiac catheterization #1 (10/30/2023,4:25pm, [facility] Interventional CARDS Dr. Rosa Menjivar, who reported: The patient subsequently presented to [facility] (10/30/2023) as a walk-in for further evaluation [...] on repeat, her TRU resolved. Cardiology at [facility] was consulted for transfer; the patient was loaded with aspirin 324 mg and ticagrelor 180 mg, started on a heparin drip, and given nitroglycerin with improvement in chest pain. Upon arrival to [facility], the patient was taken directly to the Warning Analyst. Two lesions were discovered: one in the prox RCA (felt to almost be a ABSORPTION PLANT OPERATOR but they were able to wire, balloon, and stent) and a second that was not yet addressed in the Lcx/OM (plan for staged PCI on 11/01/2023). On post-cath assessment, the patient reported being chest pain-free and asymptomatic.Two lesions were discovered: one in the prox RCA (felt to almost be a ABSORPTION PLANT OPERATOR but they were able to wire, balloon, and stent) and a second that was not yet addressed in the Lcx/OM (plan for staged PCI). On post-cath assessment, the patient reported being chest pain-free and asymptomatic. Patient subsequently underwent cardiac catheterization #2 (11/01/2023, 1:33pm, [facility] CARDS Dr. Rosa Menjivar, who reported: Coronary [...] atmospheres. A premounted 3.50 x 15 mm [place] (RADHA) was deployed with a maximum inflation [...] atmospheres. A premounted 3.50 x 15 mm [place] (RADHA) was deployed with a maximum inflation pressure of 12 atmospheres. The final outcome was defined as successful. There was no residual stenosis following this intervention. The final SAMIRA flow was 3. Patient has also been diagnosed with bradycardia in the past; to this end, patient has recorded at home on [id number]-dyqmh her pulse and BP on 04/24/2024: HR [...] admission date 04/26/2024. Patient subsequently went to [facility] ER ([place], [place]) for further evaluation of her tachy-jey syndrome. In [facility] ER, patient was afebrile @ 36.4 degrees Celsius, HR 56, RR 14, O2 sat 94% on room air, and BP 123/73 (04/25/2024, 3:33pm). Labs in [facility] ER were noted for: Troponin #1 17 [...] 7:37pm). COVID- (04/24/2024, 8:52pm). Additional testing in [facility] ER included: EKG: none performed in [facility] ER Patient was subsequently diagnosed with the [...] PO daily as patient awaited transfer to [facility] for anticipated CARDS Service evaluation and [...] was observed. Patient was subsequently transferred from [facility] ER to [facility] bed#468-A on 04/26/2024 and admitted to [...] PO daily as patient awaited transfer to [facility] for anticipated CARDS Service evaluation and anticipated PPM placement in the 04/27/2024 am. To address #2, patient is being held off her home-scheduled spironolactone 25mg PO daily (last administered at [facility] ER on 04/25/2024, 8:30am; 04/26/2024, 7:56am), given the potential for diuretic- mediated magne-uresis, as patient awaits repeat Mg level testing (04/27/2024, 3:20am). To address #3, patient is being held off her home-scheduled spironolactone 25mg PO daily (last administered at [facility] ER on 04/25/2024, 8:30am; 04/26/2024, 7:56am), given the potential for diuretic- mediated natri-uresis, as patient awaits repeat Na level testing (04/27/2024, 3:20am). To address #4, patient has been advised to follow up with her PCP Dr. Masood Pierson ([place], [place]) to consider outpatient CT chest/abd/pelvis with IV contrast to screen for undiagnosed malignancy or solicitation of outpatient Heme-Onc Service evaluation of chronic peripheral monocytosis as the differential for chronic peripheral monocytosis in the elderly population is: (1) leukemia, lymphoma, or other solid tumor(s); (2) acute viral syndrome. While bacterial infections including TB, tularemia, brucellosis, leptospirosis, listeriosis, and acute ho-chunk valve endocarditis can cause acute peripheralmonocytosis, this [...] contra-indication in the elderly population (cf., 2022 [place] [employer]'s Beers Criteria for Potentially Inappropriate Medications in the Elderly). Patient also continues to be held off her home- scheduled metoprolol XL 12.5mg PO daily while [facility]. Past medical history: As above. 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 Patient is happily retired. Patient was to her for 14 years before ; together, they have 3 daughters (aged 57 years, 62 years, and 69 years), all a live and well. Patient lives alone in her own first floor apartment in [place], [place], with just 1 step to traverse before entering her first floor apartment. Patient ambulates without assistance from a cane, walker, or wheelchair and drives her own car. [facility] as a direct transfer from [facility] ER today, 04/26/2024. Medications at home: ASA [...] No hamlin. No urethral discharge. Labs in [facility] bed #468-A: U/A: LE-, nitrite- (, [...] CAD s/p cardiac catheterization #1 (10/30/2023, 4:25pm, [facility] Interventional CARDS Dr. Rosa Menjivar, who reported: The patient subsequently presented to [facility] (10/30/2023) as a walk-in for further evaluation [...] on repeat, her TRU resolved. Cardiology at [facility] was consulted for transfer; the patient was loaded with aspirin 324 mg and ticagrelor 180 mg, started on a heparin drip, and given nitroglycerin with improvement in chest pain. Upon arrival to [facility], the patient was taken directly to the Warning Analyst. Two lesions were discovered: one in the prox RCA (felt to almost be a ABSORPTION PLANT OPERATOR but they were able to wire, balloon, and stent) and a second that was not yet addressed in the Lcx/OM (plan for staged PCI on 11/01/2023). On post-cath assessment, the patient reported being chest pain-free and asymptomatic.Two lesions were discovered: one in the prox RCA (felt to almost be a ABSORPTION PLANT OPERATOR but they were able to wire, balloon, and stent) and a second that was not yet addressed in the Lcx/OM (plan for staged PCI). On post-cath assessment, the patient reported being chest pain-free and asymptomatic. Patient subsequently underwent cardiac catheterization #2 (11/01/2023, 1:33pm, [facility] CARDS Dr. Rosa Menjivar, who reported: Coronary [...] atmospheres. A premounted 3.50 x 15 mm [place] (RADHA) was deployed with a maximum inflation [...] atmospheres. A premounted 3.50 x 15 mm [place] (RADHA) was deployed with a maximum inflation pressure of 12 atmospheres. The final outcome was defined as successful. There was no residual stenosis following this intervention. The final SAMIRA flow was 3. Patient has also been diagnosed with bradycardia in the past; to this end, patient has recorded at home on [id number] her pulse and BP on 04/24/2024: HR [...] the ground. Patient was subsequently transferred from [facility] ER to [facility] bed#468-A on 04/26/2024 and admitted to [...] PO daily as patient awaited transfer to [facility] for anticipated CARDS Service evaluation and anticipated PPM placement in the 04/27/2024 am. To address #2, patient is being held off her home-scheduled spironolactone 25mg PO daily (last administered at [facility] ER on 04/25/2024, 8:30am; 04/26/2024, 7:56am), given the potential for diuretic- mediated magne-uresis, as patient awaits repeat Mg level testing (04/27/2024, 3:20am). To address #3, patient is being held off her home-scheduled spironolactone 25mg PO daily (last administered at [facility] ER on 04/25/2024, 8:30am; 04/26/2024, 7:56am), given the potential for diuretic- mediated natri-uresis, as patient awaits repeat Na level testing (04/27/2024, 3:20am). To address #4, patient has been advised to follow up with her PCP Dr. Masood Pierson ([place], [place]) to consider outpatient CT chest/abd/pelvis with IV contrast to screen for undiagnosed malignancy or solicitation of outpatient Heme-Onc Service evaluation of chronic peripheral monocytosis as the differential for chronic peripheral monocytosis in the elderly population is: (1) leukemia, lymphoma, or other solid tumor(s); (2) acute viral syndrome. While bacterial infections including TB, tularemia, brucellosis, leptospirosis, listeriosis, and acute ho-chunk valve endocarditis can cause acute peripheralmonocytosis, this [...] contra-indication in the elderly population (cf., 2022 [place] [employer]'s Beers Criteria for Potentially Inappropriate Medications in the Elderly). Patient also continues to be held off her home- scheduled metoprolol XL 12.5mg PO daily while in [facility] bed #468-A. documented in this encounter [...] where referrals are placed. Provided patient with [facility] Star Quality Rating for Home care hand out. Patient requests referral to : [facility]. [address] [place] [address] Expected date of discharge: 05/01/24. Referral routed to the Personal Finance Instructor for matching with agency/vendor and to provide any required information. * Brief Op Note - Dre Powers MD - 04/30/2024 2:08 PM EST Brief Operative Note Patient Name: Lyla Goodrich : [id number] MR#: [id number] Case Date: 04/30/2024 Surgeon: Surgeons and Role: [...] and pacemaker implantation. Dre Powers MD, PhD, [facility] Cardiac Electrophysiology * Plan of Care [...] from the original note were not included. [facility] [address] [place], [id number] INPATIENT CARDIOLOGY CONSULT NOTE Hospital Day 1 [...] STEMI s/p PCI to the Lcx/OM and ABSORPTION PLANT OPERATOR of RCA s/p PCI. She reports that [...] Vascular Unit Level 4 Wing B at [facility] Office Visit from 03/29/2024 in Cardiology at [place] Weight 68.9 kg (151 lb 14.4 oz) [...] STEMI s/p PCI to the Lcx/OM and ABSORPTION PLANT OPERATOR of RCA s/p PCI. She has been [...] to her SVT. - NPO Tuesday at [place] for possible EPS on Tuesday - ECG's at NSR and SVT - symptom diary if able, to correlate to telemetry. - EP will continue to follow Case discussed with Dr. Carrasco. Jessie Ruiz MD Peripatologist Associated attestation - Paul Carrasco MD - [...] 04/30/2024 Paul Carrasco MD 04/30/24 Electrophysiology Attending [facility] I spent 45 minutes of total time [...] Transfer from another hospital Location: transfer from [facility] Reason for Hospitalization: felt HR go fast [...] receiving care in [place] must abide by [place] law. The hierarchy [...] (i) The agent with financial power of prosecuting attorney or a conservator appointed in [...] were you homeless or living in a assisted (including now)?: No In the past 12 months has the [employer], gas, oil, or water [employer] threatened to shut off services in your [...] DME: none Home Address confirmed as: [address] [facility] [address] Social & Family Supports: All names listed below confirmed with patient as current and correct Extended Emergency Contact Information Primary Emergency Contact: Iris Downing Address: [address] [facility] [place] [address] [facility] Mobile Relation: Child Secondary Emergency Contact: Karen More Address: [address] Mobile Relation: Child Current Care [...] N/A ; Prescription Coverage: Yes Preferred Pharmacy: [id number] [address] [id number] AT [address] [address] Amonate Status: Patient is a : No Primary Care Provider confirmed: Masood Pierson MD [phone] Patient/Caregiver Goals of Treatment: to d/c home when MR Potential Needs for Transition of Care: none Agency Referrals: Not Applicable Transportation: no concerns Transportation Anticipated: family or friend will provide Concerns to be Addressed: no discharge needs identified Assessment: 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 Personal Fitness Trainer called patient's daughter (Iris-shereen) to obtain all the information for this [...] of care as indicated. Helen Norton RN, Pager-[phone] * Plan of Care - Julio Cesar [...] 1:00 PM EST Office Visit Cardiology at [address] [place] [address] Izaiah Meyer MD [facility] [place] [address] 08/09/2024 10:00 AM EST Hospital Encounter Non-Invasive Cardiology Lab [facility] [place] [address] Arrived Pending Results Name Type Priority Associated [...] syndrome RAPID INFLUENZA A/B AND RSV PCR ([facility]/CGP/APD/NLH) STAT 04/27/2024 4:28 AM EST TROPONIN - [...] & Lateral (Generic) (05/01/2024 6:03 AM EST) WORKSTATION ID [id number] RAD Anatomical Region Laterality Modality Chest N/A [...] who have questions please contact the health infant caregiver that requested your imaging first. ? Narrative [...] patients who have questions please contactthe health infant caregiver that requested your imaging first. Electronically signed by: Wilson Hester MD, [facility]([phone]), at 05/01/2024 1:20 PM Marissa Almonte MD IMG DX ORDERABLES * (ABNORMAL) CBC (with Diff) (05/01/2024 2:17 AM EST) White Blood Cell 9.17 4.00 - 9.50 x10(3)/mc L 05/01/2024 2:36 AM [facility] Red Blood Cell 4.04 4.00 - 5.21 x10(6)/mc L 05/01/2024 2:36 AM [facility] Hemoglobin 13.6 11.7 - 15.5 g/dL 05/01/2024 2:36 AM [facility] Hematocrit 40.8 35.7 - 45.8 % 05/01/2024 2:36 AM [facility] Mean Cell Volume 101.0(H) 82.6 - 94.4 fL 05/01/2024 2:36 AM [facility] Mean Cell Hemoglobin 33.7(H) 27.1 - 32.0 pg 05/01/2024 2:36 AM [facility] Mean Cell Hemoglobin Concentration 33.3 31.7 - 35.0 g/dL 05/01/2024 2:36 AM [facility] Platelet 180 145 - 357 x10(3)/mc L 05/01/2024 2:36 AM [facility] Mean Platelet Volume 11.0 7.6 - 12.9 fL 05/01/2024 2:36 AM [facility] RDW Standard Deviation 52.7(H) 37.0 - 46.0 fL 05/01/2024 2:36 AM [facility] RDW coefficient of variation 14.0 11.5 - 14.1 % 05/01/2024 2:36 AM [facility] NRBC% auto 0.0 % 05/01/2024 2:36 AM [facility] NRBC Absolute <0.01 <0.01 x10(3)/mc L 05/01/2024 2:36 AM [facility] Neutrophil % 68.2 % 05/01/2024 2:36 AM [facility] Neutrophil Absolute (ANC) - Automated 6.25(H) 1.70 - 6.10 x10(3)/mc L 05/01/2024 2:36 AM [facility] Lymph % 14.1 % 05/01/2024 2:36 AM [facility] Lymph Absolute 1.29 0.90 - 3.20 x10(3)/mc L 05/01/2024 2:36 AM [facility] Monocyte % 13.6 % 05/01/2024 2:36 AM [facility] Monocyte Absolute 1.25(H) 0.30 - 0.90 x10(3)/mc L 05/01/2024 2:36 AM [facility] Eos % 3.4 % 05/01/2024 2:36 AM [facility] Eos Absolute 0.31 0.00 - 0.40 x10(3)/mc L 05/01/2024 2:36 AM EST [facility] Basophil % 0.4 % 05/01/2024 2:36 AM [facility] Baso Absolute 0.04 0.00 - 0.10 x10(3)/mc L 05/01/2024 2:36 AM [facility] Immature Gran % 0.3 % 2:36 AM [facility] Immature Gran Absolute <0.04 0.00 - 0.04 x10(3)/mc L 05/01/2024 2:36 AM [facility] Blood VENOUS BLOOD SPECIMEN / Unknown Venipuncture / Unknown 05/01/2024 2:17 AM EST 05/01/2024 2:31 AM EST Marissa Almonte MD HEMATOLOGY ORDERAB LES Performing Organization Address City/State/[facility] Co de Phone Number [facility] [place] [address] * Basic Metabolic Panel (05/01/2024 2:17 AM EST) Glucose 132 65 - 199 mg/dL 05/01/2024 3:00 AM [facility] Comment:Glucose Concentratio n >=200 mg/dL plus symptoms is consistent with Diabetes Mellitus. Blood Urea Nitrogen 17 8 - 18 mg/dL 05/01/2024 3:00 AM [facility] Creatinine 0.92 0.70 - 1.20 mg/dL 05/01/2024 3:00 AM [facility] Sodium 140 135 - 145 mMol/L 05/01/2024 3:00 AM [facility] Potassium 4.2 3.5 - 5.0 mMol/L 05/01/2024 3:00 AM [facility] Chloride 106 98 - 107 mMol/L 05/01/2024 3:00 AM [facility] Carbon Dioxide 23 22 - 31 mMol/L 05/01/2024 3:00 AM [facility] Anion Gap 11 5 - 15 mMol/L 05/01/2024 3:00 AM EST [facility] Calcium 8.6 8.5 - 10.5 mg/dL 05/01/2024 3:00 AM EST [facility] Est Glomerular Filtration Rate - Female 62 mL/min/1. 73 m?? 05/01/2024 3:00 AM EST [facility] Comment: This patient's [...] MD CHEMISTRY ORDERABL ES Performing Organization Address City/[facility]/ZIP Co de Phone Number [facility] [place] [address] * Magnesium (05/01/2024 2:17 AM EST) Magnesium 0.91 0.69 - 1.07 mMol/L 05/01/2024 3:00 AM EST [facility] Blood VENOUS BLOOD SPECIMEN / Unknown Venipuncture / Unknown 05/01/2024 2:17 AM EST 05/01/2024 2:30 AM EST Marissa Almonte MD CHEMISTRY ORDERABL ES [facility] [place] [address] * ELECTROPHYSIOLOGY PROCEDURE (04/30/2024 12:01 PM EST) [...] RADHA to circ/OM and PCI to RCA (ABSORPTION PLANT OPERATOR), HFpEP who presents with fatigue for the [...] a pacemaker for tachy-jey syndrome. Referring Physicians: JAMMIE FINNEGAN XAVIER L RAMACHANDRA, NAYANA Operators: Dre [...] Values Intervals ?? Cycle length 1250 ??ms [place] 248 ??ms QRS 107 ??ms QT 465 [...] used a 4 mm nonirrigated ablation catheter ([employer]ev[employer]) for further localization mapping. ??Stability was a [...] in the long axis and a 4 Spanish micropuncture needle was used to access the [...] AND GENERATOR DATA: LEAD AND GENERATOR DATA: Associate Programmer Analyst Model # Serial # Generator [employer] [id number] Atrial Lead [employer] [id number] RV Lead [employer] [id number] PACE/SENSE DATA: Sensed wave (mV) Threshold (V) [...] catheter ablation Successful implant of a left-sided [employer] dual-chamber pacemaker Observe overnight on telemetry NPO after midnight tonight (in case of complications) Chest PA/Lateral at 6 AM Okay to resume dual antiplatelet therapy Follow-up in EP clinic in 1 to 3 months The patient's daughter Iris was updated immediately after the procedure. I was present for and directly participated as spray gun operator in all herman aspects of these procedures. Dre Powers MD, PhD, [facility] Cardiac Electrophysiology Dre Powers MD EP PROCEDURE ORDERAB LES * (ABNORMAL) CBC (with Diff) (04/30/2024 2:28 AM EST) White Blood Cell 6.98 4.00 - 9.50 x10(3)/mc L 04/30/2024 3:06 AM [facility] Red Blood Cell 3.94(L) 4.00 - 5.21 x10(6)/mc L 04/30/2024 3:06 AM [facility] Hemoglobin 13.4 11.7 - 15.5 g/dL 04/30/2024 3:06 AM [facility] Hematocrit 39.0 35.7 - 45.8 % 04/30/2024 3:06 AM [facility] Mean Cell Volume 99.0(H) 82.6 - 94.4 fL 04/30/2024 3:06 AM [facility] Mean Cell Hemoglobin 34.0(H) 27.1 - 32.0 pg 04/30/2024 3:06 AM [facility] Mean Cell Hemoglobin Concentration 34.4 31.7 - 35.0 g/dL 04/30/2024 3:06 AM [facility] Platelet 192 145 - 357 x10(3)/mc L 04/30/2024 3:06 AM [facility] Mean Platelet Volume 11.4 7.6 - 12.9 fL 04/30/2024 3:06 AM [facility] RDW Standard Deviation 50.0(H) 37.0 - 46.0 fL 04/30/2024 3:06 AM [facility] RDW coefficient of variation 13.7 11.5 - 14.1 % 04/30/2024 3:06 AM [facility] NRBC% auto 0.0 % 04/30/2024 3:06 AM [facility] NRBC Absolute <0.01 <0.01 x10(3)/mc L 04/30/2024 3:06 AM [facility] Neutrophil % 40.6 % 04/30/2024 3:06 AM [facility] Neutrophil Absolute (ANC) - Automated 2.83 1.70 - 6.10 x10(3)/mc L 04/30/2024 3:06 AM [facility] Lymph % 37.4 % 04/30/2024 3:06 AM [facility] Lymph Absolute 2.61 0.90 - 3.20 x10(3)/mc L 04/30/2024 3:06 AM [facility] Monocyte % 15.3 % 04/30/2024 3:06 AM [facility] Monocyte Absolute 1.07(H) 0.30 - 0.90 x10(3)/mc L 04/30/2024 3:06 AM [facility] Eos % 5.4 % 04/30/2024 3:06 AM [facility] Eos Absolute 0.38 0.00 - 0.40 x10(3)/mc L 04/30/2024 3:06 AM [facility] Basophil % 0.9 % 04/30/2024 3:06 AM [facility] Baso Absolute 0.06 0.00 - 0.10 x10(3)/mc L 04/30/2024 3:06 AM [facility] Immature Gran % 0.4 % 3:06 AM [facility] Immature Gran Absolute <0.04 0.00 - 0.04 x10(3)/mc L 04/30/2024 3:06 AM [facility] Blood VENOUS BLOOD SPECIMEN / Unknown Venipuncture / Unknown 04/30/2024 2:28 AM EST 04/30/2024 2:59 AM EST Marissa Almonte MD HEMATOLOGY ORDERAB LES [facility] [place] [address] * (ABNORMAL) Basic Metabolic Panel (04/30/2024 2:28 AM EST) Glucose 111 65 - 199 mg/dL 04/30/2024 3:32 AM [facility] Comment:Glucose Concentratio n >=200 mg/dL plus symptoms is consistent with Diabetes Mellitus. Blood Urea Nitrogen 22(H) 8 - 18 mg/dL 04/30/2024 3:32 AM [facility] Creatinine 0.89 0.70 - 1.20 mg/dL 04/30/2024 3:32 AM [facility] Sodium 139 135 - 145 mMol/L 04/30/2024 3:32 AM [facility] Potassium 4.0 3.5 - 5.0 mMol/L 04/30/2024 3:32 AM [facility] Chloride 106 98 - 107 mMol/L 04/30/2024 3:32 AM EST [facility] Carbon Dioxide 22 22 - 31 mMol/L 04/30/2024 3:32 AM [facility] Anion Gap 11 5 - 15 mMol/L 04/30/2024 3:32 AM [facility] Calcium 8.6 8.5 - 10.5 mg/dL 04/30/2024 3:32 AM EST [facility] Est Glomerular Filtration Rate - Female 64 mL/min/1. 73 m?? 04/30/2024 3:32 AM EST [facility] Comment: This patient's [...] EST Marissa Almonte MD CHEMISTRY ORDERABL ES [facility] [place] [address] * Magnesium (04/30/2024 2:28 AM EST) Magnesium 0.89 0.69 - 1.07 mMol/L 04/30/2024 3:32 AM [facility] Blood VENOUS BLOOD SPECIMEN / Unknown Venipuncture / Unknown 04/30/2024 2:28 AM EST 04/30/2024 2:59 AM EST Marissa Almonte MD CHEMISTRY ORDERABL ES [facility] [place] [address] * (ABNORMAL) CBC (with Diff) (04/29/2024 2:01 AM EST) White Blood Cell 7.51 4.00 - 9.50 x10(3)/mc L 04/29/2024 2:33 AM [facility] Red Blood Cell 4.02 4.00 - 5.21 x10(6)/mc L 04/29/2024 2:33 AM [facility] Hemoglobin 13.6 11.7 - 15.5 g/dL 04/29/2024 2:33 AM [facility] Hematocrit 40.1 35.7 - 45.8 % 04/29/2024 2:33 AM [facility] Mean Cell Volume 99.8(H) 82.6 - 94.4 fL 04/29/2024 2:33 AM [facility] Mean Cell Hemoglobin 33.8(H) 27.1 - 32.0 pg 04/29/2024 2:33 AM [facility] Mean Cell Hemoglobin Concentration 33.9 31.7 - 35.0 g/dL 04/29/2024 2:33 AM [facility] Platelet 206 145 - 357 x10(3)/mc L 04/29/2024 2:33 AM [facility] Mean Platelet Volume 11.2 7.6 - 12.9 fL 04/29/2024 2:33 AM [facility] RDW Standard Deviation 50.1(H) 37.0 - 46.0 fL 04/29/2024 2:33 AM [facility] RDW coefficient of variation 13.5 11.5 - 14.1 % 04/29/2024 2:33 AM [facility] NRBC% auto 0.0 % 04/29/2024 2:33 AM [facility] NRBC Absolute <0.01 <0.01 x10(3)/mc L 04/29/2024 2:33 AM [facility] Neutrophil % 46.3 % 04/29/2024 2:33 AM [facility] Neutrophil Absolute (ANC) - Automated 3.48 1.70 - 6.10 x10(3)/mc L 04/29/2024 2:33 AM [facility] Lymph % 32.4 % 04/29/2024 2:33 AM [facility] Lymph Absolute 2.43 0.90 - 3.20 x10(3)/mc L 04/29/2024 2:33 AM [facility] Monocyte % 15.3 % 04/29/2024 2:33 AM [facility] Monocyte Absolute 1.15(H) 0.30 - 0.90 x10(3)/mc L 04/29/2024 2:33 AM [facility] Eos % 4.8 % 04/29/2024 2:33 AM [facility] Eos Absolute 0.36 0.00 - 0.40 x10(3)/mc L 04/29/2024 2:33 AM [facility] Basophil % 0.7 % 04/29/2024 2:33 AM [facility] Baso Absolute 0.05 0.00 - 0.10 x10(3)/mc L 04/29/2024 2:33 AM [facility] Immature Gran % 0.5 % 2:33 AM [facility] Immature Gran Absolute 0.04 0.00 - 0.04 x10(3)/mc L 04/29/2024 2:33 AM [facility] Blood VENOUS BLOOD SPECIMEN / Unknown Venipuncture / Unknown 04/29/2024 2:01 AM EST 04/29/2024 2:22 AM EST Marissa Almonte MD HEMATOLOGY ORDERAB LES [facility] [place] [address] * (ABNORMAL) Basic Metabolic Panel (04/29/2024 2:01 AM EST) Glucose 109 65 - 199 mg/dL 04/29/2024 2:56 AM [facility] Comment:Glucose Concentratio n >=200 mg/dL plus symptoms is consistent with Diabetes Mellitus. Blood Urea Nitrogen 30(H) 8 - 18 mg/dL 04/29/2024 2:56 AM [facility] Creatinine 1.09 0.70 - 1.20 mg/dL 04/29/2024 2:56 AM [facility] Sodium 137 135 - 145 mMol/L 04/29/2024 2:56 AM [facility] Potassium 4.3 3.5 - 5.0 mMol/L 04/29/2024 2:56 AM [facility] Chloride 103 98 - 107 mMol/L 04/29/2024 2:56 AM [facility] Carbon Dioxide 23 22 - 31 mMol/L 04/29/2024 2:56 AM [facility] Anion Gap 11 5 - 15 mMol/L 04/29/2024 2:56 AM [facility] Calcium 8.6 8.5 - 10.5 mg/dL 04/29/2024 2:56 AM [facility] Est Glomerular Filtration Rate - Female 50 mL/min/1. 73 m?? 04/29/2024 2:56 AM [facility] Comment: This patient's estimated GFR [...] MD CHEMISTRY ORDERABL ES Performing Organization Address City/[facility]/ZIP Co de Phone Number [facility] [place] [place] [address] * Magnesium (04/29/2024 2:01 AM EST) Pathologist [facility] Magnesium 0.87 0.69 - 1.07 mMol/L 04/29/2024 2:[address] [facility] Blood VENOUS BLOOD SPECIMEN / Unknown Venipuncture / Unknown 04/29/2024 2:01 AM EST 04/29/2024 2:22 AM EST Marissa Almonte MD CHEMISTRY ORDERABL ES Performing Organization Address [facility] Co de Phone Number [facility] [place] [place] [address] * EKG 12 Lead (04/28/2024 2:27 PM EST) Pathologist [facility] Ventricular rate 125 BPM MUSE SYSTEM Atrial Rate 129 BPM MUSE SYSTEM P-R Interval 256 ms MUSE SYSTEM QRS Duration 84 ms MUSE SYSTEM Q-T Interval 354 ms MUSE SYSTEM QTC Calculated (Bezet) 510 ms MUSE SYSTEM Calculated P [place] -4 degrees MUSE SYSTEM Calculated R [place] -48 degrees MUSE SYSTEM Calculated T [place] 40 degrees MUSE SYSTEM INTERPRETATION Sinus tachycardia with 1st degree A-V block with Premature atrial complexes Left axis deviation Moderate voltage criteria for LVH, may be normal variant ( R in aVL , [place] product ) Inferior infarct , age undetermined Anterolateral infarct , age undetermined Abnormal ECG When compared with ECG of 27-APR-2024 18:45, Premature atrial complexes are now Present Vent. rate has increased BY ??50 BPM Anterolateral infarct is now Present Confirmed by Butch Stoo MD ([id number]) on 04/30/2024 9:59:46 PM MUSE SYSTEM 04/28/2024 2:27 PM EST 04/30/2024 9:59 PM EST Izaiah Monroe MD ECG ORDERABLES MUSE SYSTEM * (ABNORMAL) CBC (with Diff) (04/28/2024 3:32 AM EST) White Blood Cell 8.16 4.00 - 9.50 x10(3)/mc L 04/28/2024 3:55 [address] [facility] Red Blood Cell 4.20 4.00 - 5.21 x10(6)/mc L 04/28/2024 3:55 AM [facility] Hemoglobin 14.8 11.7 - 15.5 g/dL 04/28/2024 3:55 AM [facility] Hematocrit 41.7 35.7 - 45.8 % 04/28/2024 3:55 AM [facility] Mean Cell Volume 99.3(H) 82.6 - 94.4 fL 04/28/2024 3:55 AM [facility] Mean Cell Hemoglobin 35.2(H) 27.1 - 32.0 pg 04/28/2024 3:55 AM [facility] Mean Cell Hemoglobin Concentration 35.5(H) 31.7 - 35.0 g/dL 04/28/2024 3:55 AM [facility] Platelet 203 145 - 357 x10(3)/mc L 04/28/2024 3:55 AM [facility] Mean Platelet Volume 11.4 7.6 - 12.9 fL 04/28/2024 3:55 AM [facility] RDW Standard Deviation 49.8(H) 37.0 - 46.0 fL 04/28/2024 3:55 AM [facility] RDW coefficient of variation 13.6 11.5 - 14.1 % 04/28/2024 3:55 AM [facility] NRBC% auto 0.0 % 04/28/2024 3:55 AM [facility] NRBC Absolute <0.01 <0.01 x10(3)/mc L 04/28/2024 3:55 AM [facility] Neutrophil % 48.4 % 04/28/2024 3:55 AM [facility] Neutrophil Absolute (ANC) - Automated 3.95 1.70 - 6.10 x10(3)/mc L 04/28/2024 3:55 AM [facility] Lymph % 33.2 % 04/28/2024 3:55 AM [facility] Lymph Absolute 2.71 0.90 - 3.20 x10(3)/mc L 04/28/2024 3:55 AM [facility] Monocyte % 12.6 % 04/28/2024 3:55 AM [facility] Monocyte Absolute 1.03(H) 0.30 - 0.90 x10(3)/mc L 04/28/2024 3:55 AM [facility] Eos % 4.7 % 04/28/2024 3:55 AM [facility] Eos Absolute 0.38 0.00 - 0.40 x10(3)/mc L 04/28/2024 3:55 AM [facility] Basophil % 0.7 % 04/28/2024 3:55 AM [facility] Baso Absolute 0.06 0.00 - 0.10 x10(3)/mc L 04/28/2024 3:55 AM [facility] Immature Gran % 0.4 % 3:55 AM [facility] Immature Gran Absolute <0.04 0.00 - 0.04 x10(3)/mc L 04/28/2024 3:55 AM [facility] Blood VENOUS BLOOD SPECIMEN / Unknown Venipuncture / Unknown 04/28/2024 3:32 AM EST 04/28/2024 3:46 AM EST Marissa Almonte MD HEMATOLOGY ORDERAB LES [facility] [place] [address] * (ABNORMAL) Basic Metabolic Panel (04/28/2024 3:32 AM EST) Glucose 101 65 - 199 mg/dL 04/28/2024 4:20 AM [facility] Comment:Glucose Concentratio n >=200 mg/dL plus symptoms is consistent with Diabetes Mellitus. Blood Urea Nitrogen 25(H) 8 - 18 mg/dL 04/28/2024 4:20 AM [facility] Creatinine 0.97 0.70 - 1.20 mg/dL 04/28/2024 4:20 AM [facility] Sodium 141 135 - 145 mMol/L 04/28/2024 4:20 AM [facility] Potassium 4.2 3.5 - 5.0 mMol/L 04/28/2024 4:20 AM [facility] Chloride 105 98 - 107 mMol/L 04/28/2024 4:20 AM [facility] Carbon Dioxide 22 22 - 31 mMol/L 04/28/2024 4:20 AM [facility] Anion Gap 14 5 - 15 mMol/L 04/28/2024 4:20 AM [facility] Calcium 8.9 8.5 - 10.5 mg/dL 04/28/2024 4:20 AM [facility] Est Glomerular Filtration Rate - Female 58 mL/min/1. 73 m?? 04/28/2024 4:20 AM [facility] Comment: This patient's estimated GFR [...] MD CHEMISTRY ORDERABL ES Performing Organization Address [facility] Co de Phone Number [facility] [place] [address] * Magnesium (04/28/2024 3:32 AM EST) Pathologist [facility] Magnesium 0.89 0.69 - 1.07 mMol/L 04/28/2024 4:20 AM EST [facility] Blood VENOUS BLOOD SPECIMEN / Unknown Venipuncture / Unknown 04/28/2024 3:32 AM EST 04/28/2024 3:46 AM EST Marissa Almonte MD CHEMISTRY ORDERABL ES Performing Organization Address [facility] Co de Phone Number [facility] [place] [place] [address] * EKG 12 Lead (04/27/2024 6:45 PM EST) Ventricular rate 75 BPM MUSE SYSTEM Atrial Rate 75 BPM MUSE SYSTEM P-R Interval 222 ms MUSE SYSTEM QRS Duration 90 ms MUSE SYSTEM Q-T Interval 386 ms MUSE SYSTEM QTC Calculated (Bezet) 431 ms MUSE SYSTEM Calculated P [place] 78 degrees MUSE SYSTEM Calculated R [place] -49 degrees MUSE SYSTEM Calculated T [place] 13 degrees MUSE SYSTEM INTERPRETATION Sinus rhythm with 1st degree A-V block Left anterior fascicular block Moderate voltage criteria for LVH, may be normal variant ( R in aVL , [place] product ) Abnormal ECG When compared with ECG of 24-NOV-2023 11:09, T wave inversion no longer evident in Inferior leads T wave inversion no longer evident in Anterolateral leads Confirmed by Butch Soto MD ([id number]) on 04/28/2024 4:52:18 PM MUSE SYSTEM 04/27/2024 6:45 PM EST 04/28/2024 4:52 PM EST Izaiah Monroe MD ECG ORDERABLES MUSE SYSTEM * Rapid Influenza A/B and RSV PCR ([facility]/CGP/APD/[facility]H) (04/27/2024 4:28 AM EST) Pathologist [facility] Influenza A PCR Not Detected Not Detected 04/27/2024 6:34 AM EST [facility] Influenza B PCR Not Detected Not Detected 04/27/2024 6:34 AM EST [facility] RSV PCR Not Detected Not Detected 04/27/2024 6:34 AM EST [facility] Swab SPECIMEN FROM NASOPHARYNGEAL STRUCTURE / Unknown Non Blood Collection / Unknown 04/27/2024 4:28 AM EST 04/27/2024 4:40 AM EST Izaiah Monroe MD MICROBIOLOGY - GENER AL ORDERABLES Performing Organization Address [facility]/ZIP Co de Phone Number [facility] [place] [address] * Magnesium (04/27/2024 3:12 AM EST) Pathologist [facility] Magnesium 0.88 0.69 - 1.07 mMol/L 04/27/2024 4:02 AM EST [facility] Blood VENOUS BLOOD SPECIMEN / Unknown Venipuncture / Unknown 04/27/2024 3:12 AM EST 04/27/2024 3:25 AM EST Izaiah Monroe MD CHEMISTRY ORDERABLES Performing Organization Address City/[facility]/ZIP Co de Phone Number [facility] [place] [place] [address] * (ABNORMAL) Basic Metabolic Panel (04/27/2024 3:12 AM EST) Pathologist [facility] Glucose 112 65 - 199 mg/dL 04/27/2024 4:02 AM EST [facility] Comment:Glucose Concentratio n >=200 mg/dL plus symptoms is consistent with Diabetes Mellitus. Blood Urea Nitrogen 22(H) 8 - 18 mg/dL 04/27/2024 4:02 AM [facility] Creatinine 1.00 0.70 - 1.20 mg/dL 04/27/2024 4:02 AM [facility] Sodium 142 135 - 145 mMol/L 04/27/2024 4:02 AM [facility] Potassium 4.4 3.5 - 5.0 mMol/L 04/27/2024 4:02 AM [facility] Chloride 106 98 - 107 mMol/L 04/27/2024 4:02 AM [facility] Carbon Dioxide 24 22 - 31 mMol/L 04/27/2024 4:02 AM [facility] Anion Gap 12 5 - 15 mMol/L 04/27/2024 4:02 AM [facility] Calcium 9.3 8.5 - 10.5 mg/dL 04/27/2024 4:02 AM [facility] Est Glomerular Filtration Rate - Female 56 mL/min/1. 73 m?? 04/27/2024 4:02 AM [facility] Comment: This patient's estimated GFR [...] AM EST Izaiah Monroe MD CHEMISTRY ORDERABLES [facility] [place] [place] [address] * (ABNORMAL) CBC (with Diff) (04/27/2024 3:12 AM EST) [facility] White Blood Cell 7.99 4.00 - 9.50 x10(3)/mc L 04/27/2024 3:39 AM [facility] Red Blood Cell 4.16 4.00 - 5.21 x10(6)/mc L 04/27/2024 3:39 AM [facility] Hemoglobin 14.1 11.7 - 15.5 g/dL 04/27/2024 3:39 AM [facility] Hematocrit 40.9 35.7 - 45.8 % 04/27/2024 3:39 AM [facility] Mean Cell Volume 98.3(H) 82.6 - 94.4 fL 04/27/2024 3:39 AM [facility] Mean Cell Hemoglobin 33.9(H) 27.1 - 32.0 pg 04/27/2024 3:39 AM [facility] Mean Cell Hemoglobin Concentration 34.5 31.7 - 35.0 g/dL 04/27/2024 3:39 AM [facility] Platelet 200 145 - 357 x10(3)/mc L 04/27/2024 3:39 AM [facility] Mean Platelet Volume 11.4 7.6 - 12.9 fL 04/27/2024 3:39 AM [facility] RDW Standard Deviation 49.0(H) 37.0 - 46.0 fL 04/27/2024 3:39 AM [facility] RDW coefficient of variation 13.3 11.5 - 14.1 % 04/27/2024 3:39 AM [facility] NRBC% auto 0.0 % 04/27/2024 3:39 AM [facility] NRBC Absolute <0.01 <0.01 x10(3)/mc L 04/27/2024 3:39 AM [facility] Neutrophil % 54.3 % 04/27/2024 3:39 AM [facility] Neutrophil Absolute (ANC) - Automated 4.35 1.70 - 6.10 x10(3)/mc L 04/27/2024 3:39 AM [facility] Lymph % 28.2 % 04/27/2024 3:39 AM [facility] Lymph Absolute 2.25 0.90 - 3.20 x10(3)/mc L 04/27/2024 3:39 AM [facility] Monocyte % 12.4 % 04/27/2024 3:39 AM [facility] Monocyte Absolute 0.99(H) 0.30 - 0.90 x10(3)/mc L 04/27/2024 3:39 AM [facility] Eos % 4.3 % 04/27/2024 3:39 AM [facility] Eos Absolute 0.34 0.00 - 0.40 x10(3)/mc L 04/27/2024 3:39 AM [facility] Basophil % 0.5 % 04/27/2024 3:39 AM [facility] Baso Absolute 0.04 0.00 - 0.10 x10(3)/mc L 04/27/2024 3:39 AM [facility] Immature Gran % 0.3 % 3:39 AM [facility] Immature Gran Absolute <0.04 0.00 - 0.04 x10(3)/mc L 04/27/2024 3:39 AM [facility] Blood VENOUS BLOOD SPECIMEN / Unknown Venipuncture / Unknown 04/27/2024 3:12 AM EST 04/27/2024 3:25 AM EST Izaiah Monroe MD HEMATOLOGY ORDERABLE S [facility] [place] [address] * Troponin - Single (04/27/2024 3:12 AM EST) Troponin-T, High Sensitivity 14 <=14 ng/L 04/27/2024 4:02 AM EST [facility] Comment: This patient's [...] can be found in the [facility] Test Catalog Troponin - [email or web address] Reference: Fourth [place] Definition of Myocardial Infarction. Journal of the [place] [employer] 2018;72:4580-8547 Blood VENOUS BLOOD SPECIMEN / Unknown Venipuncture / Unknown 04/27/2024 3:12 AM EST 04/27/2024 3:25 AM EST Izaiah Monroe MD CHEMISTRY ORDERABLES Performing Organization Address City/State/[facility] Co de Phone Number [facility] [place] [address] * Prothrombin Time (04/27/2024 3:12 AM EST) Prothrombin Time 11.3 9.4 - 12.5 sec 04/27/2024 3:48 AM EST [facility] International Normalization Ratio 1.0 <=4.9 04/27/2024 3:48 AM EST [facility] Comment: An INR < 2.0 [...] MD HEMATOLOGY ORDERABLE S Performing Organization Address [facility] Co de Phone Number [facility] [place] [address] * TSH (04/27/2024 3:12 AM EST) Thyroid Stimulating Hormone 2.99 0.27 - 4.20 mcIU/mL 04/27/2024 4:02 AM EST [facility] Comment: Reference Interval (mcIU/mL): ?? Females: ? First Trimester: 0.23-3.88 ? Second Trimester: 0.22-3.90 ? Third Trimester: 0.44-4.66 Blood VENOUS BLOOD SPECIMEN / Unknown Venipuncture / Unknown 04/27/2024 3:12 AM EST 04/27/2024 3:25 AM EST Izaiah Monroe MD CHEMISTRY ORDERABLES Performing Organization Address [facility] de Phone Number [facility] [place] [address] * Urinalysis with reflex Culture (04/27/2024 12:06 AM EST) Glucose, Urine Dipstick Negative Negative 04/27/2024 12:25 AM EST [facility] Protein, Urine Dipstick Negative Negative 04/27/2024 12:25 AM EST [facility] Bilirubin, Urine Dipstick Negative Negative 04/27/2024 12:25 AM EST [facility] Comment:Clinical correlation required for positive Urine Bilirubin results as false positive may occur with some drugs and drug related products. If a false positive is suspected a serum total bilirubin should be considered if clinically indicated. Urobilinogen, Urine Dipstick Normal Normal, 0.2 mg/dL, 1.0 mg/dL 04/27/2024 12:25 AM [facility] pH, Urine (dipstick) 6.5 5.0 - 8.0 04/27/2024 12:25 AM [facility] Blood, Urine Dipstick Negative Negative 04/27/2024 12:25 AM [facility] Ketone, Urine Dipstick Negative Negative 04/27/2024 12:25 AM [facility] Nitrite, Urine Dipstick Negative Negative 04/27/2024 12:25 AM [facility] Leukocytes, Urine Dipstick Negative Negative 04/27/2024 12:25 AM [facility] Specific [place] Urine Automated 1.010 1.005 - 1.030 04/27/2024 12:25 AM [facility] Appearance, Urine Dipstick Clear Clear 04/27/2024 12:25 AM [facility] Color, Urine Dipstick Yellow Yellow, Dark Yellow 04/27/2024 12:25 AM [facility] CULTURE ADDED? 04/27/2024 12:25 AM [facility] Urine URINE SPECIMEN OBTAINED BY CLEAN CATCH PROCEDURE / Unknown Non Blood Collection / Unknown 04/27/2024 12:06 AM EST 04/27/2024 12:16 AM EST Izaiah Monroe MD URINE ORDERABLES [facility] [place] [place] [address] * EKG 12 Lead (04/26/2024 11:01 PM EST) Ventricular rate 62 BPM MUSE SYSTEM Atrial Rate 62 BPM MUSE SYSTEM P-R Interval 222 ms MUSE SYSTEM QRS Duration 92 ms MUSE SYSTEM Q-T Interval 402 ms MUSE SYSTEM QTC Calculated (Bezet) 408 ms MUSE SYSTEM Calculated P [place] 73 degrees MUSE SYSTEM Calculated R [place] -40 degrees MUSE SYSTEM Calculated T [place] 20 degrees MUSE SYSTEM INTERPRETATION Sinus rhythm with 1st degree A-V block Left axis deviation Moderate voltage criteria for LVH, may be normal variant ( R in aVL , [place] product ) Abnormal ECG When compared with ECG of 24-NOV-2023 11:09, T wave inversion less evident in Inferior leads T wave inversion no longer evident in Anterolateral leads Confirmed by Butch Soto MD (Tashi) on 04/30/2024 9:59:18 PM MUSE SYSTEM 04/26/2024 11:0 1 PM EST 04/30/2024 9:59 PM EST Marissa Almonte MD ECG ORDERABLES MUSE SYSTEM documented in this encounter Visit Diagnoses Diagnosis 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 Sinoatrial node dysfunction Pacemaker - [employer] Cardiac pacemaker in situ documented in this encounter Admitting Diagnoses Diagnosis Tachy-jey syndrome Sinoatrial node dysfunction documented in this encounter Administered Medications Inactive Administered Medications - up to 3 most recent administrations Medication Order MAR Action Action Date Dose Rate Site acetaminophen (Tylenol) tablet 650 mg 650 mg, Oral, EVERY 6 HOURS PRN, Starting on Tue04/26/24 at 2339, Until Tue05/01/24 at 0941, Pain, Headaches, Fever, Other, pain 1 to 10, Maximum dose of acetaminophen is 4,000 mg from all sources in 24 hours., Routine Given 05/01/2024 9:00 AM EST 650 mg Given 05/01/2024 1:56 AM EST 650 mg Given 04/30/2024 5:06 PM EST 650 mg acetaminophen (Tylenol) tablet 975 mg [...] dose on Tue04/28/24 at 1345, Until Discontinued Given 04/30/2024 9:00 PM EST Given 04/30/2024 9:00 AM EST 08 - Back Lower (Right) Given 04/29/2024 9:00 PM EST clopidogreL (Plavix) tablet 75 mg 75 mg, Oral, DAILY, First dose on Tue04/27/24 at 0900, Until Discontinued, Routine Given 05/01/2024 8:58 AM EST 75 mg Given 04/30/2024 7:54 AM EST 75 mg Given 04/29/2024 9:56 AM EST 75 mg fentaNYL (pf) (50 mcg/mL) multi-dose injection 25 mcg 25 mcg, Intravenous, EVERY 5 MIN PRN, [...] fentaNYL for breakthrough pain., PACU Recovery, Routine Given 04/30/2024 3:44 PM EST 25 mcg heparin (porcine) (5,000 units/1 mL) subcutaneous injection [...] Subcutaneous, ONCE PRN, 1 dose, Starting on Tue04/26/24 at 2339, Until Tue05/01/24 at 1748, for [...] Sublingual, EVERY 5 MIN PRN, Starting on Amna 04/26/24 at 2339, Until Tue05/01/24 at 1748, Chest pain, May repeat every 5 minutes for a total of three doses. Notify provider if chest pain not relieved with nitroGLYcerin. Do not administer nitroGLYcerin if the patient has received or taken phosphodiesterase (PDE-5) inhibitors such as sildenafiL, tadalafiL or vardenafiL within the last 24 to 72 hours., Routine oxyCODONE (Roxicodone) tablet 2.5 mg 2.5 mg, Oral, ONCE, 1 dose, On Tue04/30/24 at 1900, Routine Given 04/30/2024 6:51 PM EST 2.5 mg oxyCODONE (Roxicodone) tablet 2.5 mg 2.5 mg, Oral, EVERY 6 HOURS PRN, Starting on Tue05/01/24 at 0024, Until Tue05/01/24 at 0714, Pain, Routine Given 05/01/2024 1:55 AM EST 2.5 mg sodium chloride 0.9 % (flush) (BD [...] Intravenous, EVERY 1 MIN PRN, Starting on Amna 04/26/24 at 2339, Until Tue05/01/24 at 1748, flush, [...] procedure)1656 (AUG Unhold - Provider: Admin Adt) 0951 (Given - Provider: Nila López, RN) atorvastatin (Lipitor) tablet 80 mg 80 mg, Oral, EVERY EVENING, First dose on Tue04/27/24 at 1700, Until Discontinued, Routine 1615 (Given - Provider: Ajay Garcia RN) 0754 (Given - Provider: Nila López RN)0858 (MAR Hold - Provider: Admin Adt - Reason: Transfer to a Procedural area)165 (MAR Unhold - Provider: Admin Adt)170 (Given - Provider: Nila López RN) capsaicin (Zostrix) 0.025 % cream Topical (Top), 2 TIMES DAILY, First dose on Tue04/28/24 at 1345, Until Discontinued 1004 (Given - Provider: Ajay Garcia RN)2100 (Given - Provider: Isabelle Oden RN) 0858 (MAR Hold - Provider: Admin Adt - Reason: Transfer to a Procedural area)0900 (Given - Provider: Nila López RN)165 (MAR Unhold - Provider: Admin Adt)2100 (Given - Provider: Isabelle Oden RN) 0900 (Not Given - Provider: Nila López [...] comment - Comment: given earlier for procedure)165 ([facility] Unhold - Provider: Admin Adt) 0858 (Given - Provider: Nila López RN) heparin (porcine) (5,000 units/1 mL) subcutaneous injection 5,000 Units 5,000 Units, Subcutaneous, EVERY 12 HOURS SCHEDULED (2 times per day), First dose on Tue04/27/24 at 0000, Until Discontinued, Routine 0956 (Given - Provider: Ajay Garcia RN)2023 (Given - Provider: Isabelle Oden RN) 0858 (MAR Hold - Provider: Admin Adt - Reason: Transfer to a Procedural area)0900 (Not Given - Provider: Nila López RN - Reason: Per MD Order - Comment: hold for ep study)1655 ([facility] Unhold - Provider: Admin Adt)212 (Given - Provider: Isabelle Oden RN) 0858 (Given - Provider: Nila López, RN) lidocaine (Lidoderm) 5% patch 1 patch 1 patch, Transdermal, Administer over 12 Hours, EVERY 24 HOURS, First dose on Tue04/28/24 at 1315, Until Discontinued, Apply patch(es) for 12 hours, and then remove for 12 hours., Routine 0133 (Patch Removed - Provider: Isabelle Oden RN)1315 (Not Given - Provider: Ajay Garcia RN - Reason: Patient/family refused) 0858 (AUG Hold - Provider: Admin Adt - Reason: Transfer to a Procedural area)1315 (Hold - Provider: Nila López RN - Reason: Contraindicated - Comment: pt back from procedure and is not able to been rolled at this time. on bed rest order.)1656 (AUG Unhold - Provider: Admin Adt) 1315 (Due) losartan (Cozaar) tablet 50 mg 50 mg, Oral, DAILY, First dose on Tue04/27/24 at 0900, Until Discontinued, Routine 0956 (Given - Provider: Ajay Garcia RN) 0805 (Given - Provider: Nila López, RN)0858 (AUG Hold - Provider: Admin Adt - Reason: Transfer to a Procedural area)1656 (AUG Unhold - Provider: Admin Adt) 0858 (Given - Provider: Nila López, RN) metoprolol succinate XL (Toprol-XL) tablet 12.5 mg 12.5 mg, Oral, DAILY, First dose (after last modification) on Tue05/01/24 at 1130, Until Discontinued, DO NOT CRUSH OR OPEN, Routine 1144 (Given - Provider: Nila López, RN) oxyCODONE (Roxicodone) tablet 2.5 mg (COMPLETED) 2.5 mg, Oral, ONCE, 1 dose, On Tue04/30/24 at 1900, Routine 1851 (Given - Provider: Nila López, RN) sodium chloride 0.9 % (flush) (BD PosiFlush Normal Saline 0.9) flush 5 mL 5 mL, Intravenous, 2 TIMES DAILY, First dose on Tue04/27/24 at 0000, Until Discontinued, Routine 0958 (Given - Provider: Ajay Garcia RN)2022 (Given - Provider: Isabelle Oden RN) 0804 (Given - Provider: Nila López RN)0858 (AUG Hold - Provider: Admin Adt - Reason: Transfer to a Procedural area)1656 (AUG Unhold - Provider: Admin Adt)212 (Given - Provider: Isabelle Oden RN) 1157 [...] comment - Comment: given earlier for procedure)165 (AUG Unhold - Provider: Admin Adt) 0858 [...] for discomfort with PIV insertion, Routine 0858 (AUG Hold - Provider: Admin Adt - Reason: Transfer to a Procedural area)1655 (AUG Unhold - Provider: Admin Adt) nitroGLYcerin (Nitrostat) disintegrating tablet 0.4 mg 0.4 mg, Sublingual, EVERY 5 MIN PRN, Starting on Amna 04/26/24 at 2339, Until Tue05/01/24 at 1748, Chest pain, May repeat every 5 minutes for a total of three doses. Notify provider if chest pain not relieved with nitroGLYcerin. Do not administer nitroGLYcerin if the patient has received or taken phosphodiesterase (PDE-5) inhibitors such as sildenafiL, tadalafiL or vardenafiL within the last 24 to 72 hours., Routine 0858 (AUG Hold - Provider: Admin Adt - Reason: Transfer to a Procedural area)1655 (AUG Unhold - Provider: Admin Adt) oxyCODONE (Roxicodone) tablet 2.5 mg (CANCELED) 2.5 mg, Oral, EVERY 6 HOURS PRN, Starting on Tue05/01/24 at 0024, Until Tue05/01/24 at 0714, Pain, Routine 0155 (Given - Provider: Isabelle Oden RN - Comment: left shoulder) sodium chloride 0.9 % (flush) (BD PosiFlush Normal Saline 0.9) flush 5-20 mL 5-20 mL, Intravenous, EVERY 1 MIN PRN, Starting on Amna 04/26/24 at 2339, Until Tue05/01/24 at 1748, flush, Flush pertains to all indwelling lines. Flush per protocol found in the job aid using the link provided on this medication record., Routine 0858 (AUG Hold - Provider: Admin Adt - Reason: Transfer to a Procedural area)1656 (AUG Unhold - Provider: Admin Adt) Linked Groups [...] documented as of this encounter Care Teams Plastics Engineering Teacher Relationship Specialty Start Date End Date Masood Pierson MD [address] [place] [id number] PCP - General Family Medicine 11/24/23 documented as of this encounter
--- OUTSIDE RECORDS SUMMARY | 2024-07-25 15:43 | XMS_ITS | Encounter Summary ---
Author Organization [facility] Address [facility] [place] [address] Care Team Providers Care Monument Erector Name Role Phone Masood Pierson MD Primary Care Provider [phone] Reason for Visit * Reason Comments Medication Refill Encounter Details Date Type Department Care Team (Late st Contact Info) Description 04/06/2024 [place]ill [place] [phone] Emile Robles MD [facility] [place] [address] Social History Tobacco Use Types Packs/Day Years Used Date Smoking Tobacco: Former Smokeless Tobacco: Never Alcohol Use Standard Drinks/Week Comments Not Currently 0 (1 standard drink = 0.6 oz pur e alcohol) [facility] Utilities Answer Date Recorded In the past 12 months has [employer] electric, gas, oil, or water company threatened [...] 1:00 PM EST Office Visit Cardiology at [address] [phone] Izaiah Meyer MD [facility] [place] [place] [address] 08/09/2024 10:00 AM EST Hospital Encounter Non-Invasive Cardiology Lab [facility] [place] [address] Arrived documented as of this encounter Visit Diagnoses Not on filedocumented in this encounter Care Teams Monument Erector Relationship Specialty Start Date End Date Masood Pierson MD [address] [place] [address] PCP - General Family Medicine 11/24/23 documented as of this encounter
--- OUTSIDE RECORDS SUMMARY | 2024-07-25 15:43 | XMS_ITS | Encounter Summary ---
Author Organization [facility] Address [facility] [place] [address] Care Team Providers Care Senior Bioinformatics Scientist Name Role Phone Masood Pierson MD Primary Care Provider [phone] Reason for Visit * Reason Comments Coronary Artery Disease Encounter Details Date Type Department Care Team (Latest Contact Info) Description 03/29/2024 11:20 AM EDT Office Visit Cardiology at [address] [phone] Izaiah Meyer MD [facility] [place] [address] ASCVD (arteriosclerotic cardiovascular disease); Hyperpiesia; Cardiomyopathy, ischemic Social History Tobacco Use Types Packs/Day Years Used Date Smoking Tobacco: Former Smokeless Tobacco: Never Alcohol Use Standard Drinks/Week Comments Not Currently 0 (1 standard drink = 0.6 oz pur e alcohol) [facility] Utilities Answer Date Recorded In the past 12 months has [employer] electric, gas, oil, or water company threatened [...] in this encounter Progress Notes * Kira Gutiérrez, PHARMACY CUSTOMER CARE SPECIALIST - 03/29/2024 11:20 AM EDT Images from [...] 3.5 x 15 Andrea 3.5 x 15 [place] RCA Mid AoCTO. Collats from Cx 4.0 [...] 1:00 PM EST Office Visit Cardiology at [address] [phone] Izaiah Meyer MD [facility] [place] [address] 08/09/2024 10:00 AM EST Hospital Encounter Non[place] [address] Arrived documented as of this encounter Visit Diagnoses Diagnosis ASCVD (arteriosclerotic cardiovascular disease) Unspecified cardiovascular disease Hyperpiesia Unspecified essential hypertension Cardiomyopathy, ischemic Other specified forms of chronic ischemic heart disease documented in this encounter Care Teams Senior Bioinformatics Scientist Relationship Specialty Start Date End Date Masood Pierson MD [address] [place] [address] PCP - General Family Medicine 11/24/23 documented as of this encounter
--- OUTSIDE RECORDS SUMMARY | 2024-07-25 15:43 | XMS_ITS | Encounter Summary ---
Author Organization [facility] Address [facility] [place] [address] Care Team Providers Care Eyeglass Fitter Name Role Phone Masood Pierson MD Primary Care Provider [phone] Reason for Visit * Reason Onset Date Comments Tachycardia 05/29/2024 Encounter Details Date Type Department Care Team (Late st Contact Info) Description 05/29/2024 Telephone Cardiology at [address] [phone] Izaiah Meyer MD [facility] [place] [address] Tachycardia Social History Tobacco Use Types Packs/Day Years [...] in the past 12 m [facility], were you homeless or living in a residential (including now)? No 04/27/2024 DH IPV Inpatient [...] Telephone Encounter - Andressa Machado RN - 05/29/2024 9:57 AM EST Alisa from [facility] called in about telehealth observations. Lyla's HR has stayed elevated for 3 days. 107-116 Tuesday 77-125 Tuesday 105 Tuesday She has no symptoms or complaints. She is compliant with metoprolol succinate 25 mg take ONE HALF tablet daily. Consideration: 12.5 mg daily dose is low end standard dose Notification will be made to Dr. Meyer. Inquiry: would increasing to 25 mg daily dose be appropriate? documented in this encounter Plan of Treatment Upcoming Encounters Date Type Department Care Team (Late st Contact Info) Description 08/07/2024 1:00 PM EST Office Visit Cardiology at [address] [place] [address] Izaiah Meyer MD [facility] [place] [address] 08/09/2024 10:00 AM EST Hospital Encounter Non-[place]vasive [place] [address] Arrived documented as of this encounter Visit Diagnoses Not on filedocumented in this encounter Care Teams Eyeglass Fitter Relationship Specialty Start Date End Date Masood Pierson MD [address] [place] [address] PCP - General Family Medicine 11/24/23 documented as of this encounter
--- OUTSIDE RECORDS SUMMARY | 2024-07-25 15:44 | XMS_ITS | Encounter Summary ---
Author Organization [facility] [place] [address] Care Team Providers Care Feed Adviser Name Role Phone Rosie Mathews MD Primary Care Provider [phone] Encounter Details Date Type Department Care Team (Late st Contact Info) Description 11/18/2023 Telephone Cardiology at [address] [phone] Cheryl Guzman MD [address] [place] [address] Social History Tobacco Use Types Packs/Day Years Used Date Smoking Tobacco: Former Smokeless Tobacco: Never Alcohol Use Standard Drinks/Week Comments Not Currently 0 (1 standard drink = 0.6 oz pur e alcohol) [facility] Utilities Answer Date Recorded In the [...] in a penitentiary (including now)? No 11/01/2023 IPV Inpatient Questions [...] Department Past Medical History: HTN HLD NSTEMI ([facility] 11/02, status-post revasc) Presenting Symptoms per OSH: Lyla Goodrich is a 83 y.o. woman who presents to [facility] with an episode of chest pain. Recent admission to [facility] with NSTEMI status-post PCI [...] today's values. 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 Recommend admission for observation to assess [...] 1:00 PM EST Office Visit Cardiology at [address] [phone] Izaiah Meyer MD [facility] [place] [address] 08/09/2024 10:00 AM EST Hospital Encounter Non-Invasive Cardiology Lab [facility] [place] [phone] Arrived documented as of this encounter Visit Diagnoses Not on filedocumented in this encounter Care Teams Feed Adviser Relationship Specialty Start Date End Date Rosie Mathews MD [address] [place] [address] PCP - General Family Medicine 11/25/17 11/23/23 documented as of this encounter
--- OUTSIDE RECORDS SUMMARY | 2024-07-25 15:44 | XMS_ITS | Encounter Summary ---
Author Organization [facility] Address [facility] [place] [address] Care Team Providers Care Design Project Manager Name Role Phone Masood Pierson MD Primary Care Provider [phone] Encounter Details Date Type Department Care Team (Late st Contact Info) Description 02/24/2024 External Results Transfer Center [facility] [place] [phone] Social History Tobacco Use Types Packs/Day Years Used Date Smoking Tobacco: Former Smokeless Tobacco: Never Alcohol Use Standard Drinks/Week Comments Not Currently 0 (1 standard drink = 0.6 oz pur e alcohol) [facility] Utilities Answer Date Recorded In the past 12 months has e [employer], gas, oil, or water [employer] threatened to shut off services in your [...] 1:00 PM EST Office Visit Cardiology at [address] [phone] Izaiah Meyer MD [facility] [place] [address] 08/09/2024 10:00 AM EST Hospital Encounter Non[place] [address] Arrived documented as of this encounter Procedures Procedure Name Priority Date/Time Associated Diagnosis Comments MISC EXTERNAL CARDIOLOGY RESULT Routine 02/24/2024 11:10 PM EDT documented in this encounter Results * External Cardiology Result (02/24/2024 11:10 PM EDT) Anatomical Region Laterality Modality Other Historical Provider EXTERNAL CARDIOLO GY RESULT documented in this encounter Visit Diagnoses Not on filedocumented in this encounter Care Teams Design Project Manager Relationship Specialty Start Date End Date Masood Pierson MD [address] [place] [address] PCP - General Family Medicine 11/24/23 documented as of this encounter
--- OUTSIDE RECORDS SUMMARY | 2024-07-25 15:44 | XMS_ITS | Encounter Summary ---
Author Organization [facility] [place] [address] Care Team Providers Care Director Ship Name Role Phone Rosie Mathews MD Primary Care Provider [phone] Encounter Details Date Type Department Care Team (Late st Contact Info) Description 11/18/2023 External Results Administration [place] [phone] Social History Tobacco Use Types Packs/Day Years Used Date Smoking Tobacco: Former Smokeless Tobacco: Never Alcohol Use Standard Drinks/Week Comments Not Currently 0 (1 standard drink = 0.6 oz pur e alcohol) [facility] Utilities Answer Date Recorded In the past 12 months has e [employer], gas, oil, or water [employer] threatened to shut off services in [...] 1:00 PM EST Office Visit Cardiology at [address] [phone] Izaiah Meyer MD [facility] [place] [address] 08/09/2024 10:00 AM EST Hospital Encounter Non-[place] [address] Arrived documented as of this encounter Procedures Procedure Name Priority Date/Time Associated Diagnosis Comments ECG SCAN Routine 11/18/2023 4:50 PM EDT documented in this encounter Results * Scan Doc: ECG (11/18/2023 4:50 PM EDT) Historical Provider MD GUPTA MGR SCAN EX T ORDR/RSLT documented in this encounter Visit Diagnoses Not on filedocumented in this encounter Care Teams Director Ship Relationship Specialty Start Date End Date Rosie Mathews MD [address] [place] [address] PCP - General Family Medicine 11/25/17 11/23/23 documented as of this encounter
--- OUTSIDE RECORDS SUMMARY | 2024-07-25 15:44 | XMS_ITS | Encounter Summary ---
Author Organization [facility] Address [facility] [place] [address] Care Team Providers Care Evaluation Specialist Name Role Phone Masood Pierson MD Primary Care Provider [phone] Reason for Visit * Reason Comments Establish Care Coronary Artery Disease Encounter Details Date Type Department Care Team (Latest Contact Info) Description 11/24/2023 10:40 AM EDT Office Visit Cardiology at [address] [phone] Izaiah Meyer MD [facility] [place] [address] ASCVD (arteriosclerotic cardiovascular disease); Cardiomyopathy, ischemic; Ascending [...] 3.5 x 15 Andrea 3.5 x 15 [place] RCA Mid AoCTO. Collats from Cx 4.0 [...] y.o. female. HPI: 83 f presents to establish cardiovascular care. She has a recent history [...] rehab. [facility] SBP very well controlled at home [...] 1:00 PM EST Office Visit Cardiology at [address] [phone] Izaiah Meyer MD [facility] [place] [address] 08/09/2024 10:00 AM EST Hospital Encounter Non-[place] [address] Arrived documented as of this encounter Visit Diagnoses Diagnosis ASCVD (arteriosclerotic cardiovascular disease) Unspecified cardiovascular disease Cardiomyopathy, ischemic Other specified forms of chronic ischemic heart disease Ascending aorta dilatation Thoracic aortic ectasia Hyperpiesia Unspecified essential hypertension documented in this encounter Care Teams Evaluation Specialist Relationship Specialty Start Date End Date Masood Pierson MD [address] [place] [address] PCP - General Family Medicine 11/24/23 documented as of this encounter
--- OUTSIDE RECORDS SUMMARY | 2024-07-25 15:44 | XMS_ITS | Encounter Summary ---
Author Organization [facility] Address [facility] [place] [address] Care Team Providers Care Campus Ambassador Name Role Phone Masood Pierson MD Primary Care Provider [phone] Encounter Details Date Type Department Care Team (Late st Contact Info) Description 02/24/2024 11:10 PM EDT Ancillary Procedure Radiology Library at [facility] [address] Masood Pierson MD [address] [place], [place] [phone] Social History Tobacco Use Types Packs/Day Years [...] 1:00 PM EST Office Visit Cardiology at [address] [phone] Izaiah Meyer MD [facility] [place] [address] 08/09/2024 10:00 AM EST Hospital Encounter Non-Invasive Cardiology Lab [facility] [place] [address] Arrived documented as of this encounter Procedures [...] FILM LIBRARY ORD ERABLES Performing Organization Address City/State/[facility] Co de Phone Number [place], [place] documented in this encounter Visit Diagnoses Not on filedocumented in this encounter Care Teams Campus Ambassador Relationship Specialty Start Date End Date Masood Pierson MD [address] [place] [address] PCP - General Family Medicine 11/24/23 documented as of this encounter
--- OUTSIDE RECORDS SUMMARY | 2024-07-25 15:44 | XMS_ITS | Encounter Summary ---
Author Organization [facility] Address [facility] [place] [address] Care Team Providers Care Core Maker Helper Name Role Phone Rosie Mathews MD Primary Care Provider [phone] Reason for Referral * Consultation (Routine) - Closed Specialty Diagnoses / Procedures Referred By Contac t Referred To Contact Cardiology Diagnoses 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 Rosa Hugo MD [facility] [place] [address] Cardiac Rehab, [address] [place] [address] Referral ID Status Reason Start Date Expiration Date V isits Requested Visits Authorized [id number] Closed Consult, Test & Treat Non PCP 11/03/2023 05/01/2024 36 36 * Home Health Care (Routine) - Closed Specialty Diagnoses / Procedures Referred By Contac t Referred To Contact Diagnoses Unstable angina Rosa Hugo MD [facility] [place] [address] Referral ID Status Reason Start Date Expiration Date V isits Requested Visits Authorized [id number] Closed Consult, Test & Treat 11/03/2023 05/01/2024 999 999 Reason for Visit * Auth/Cert (Routine) Specialty Diagnoses / Procedures Referred By Contbruce t Referred To Contact Diagnoses Unstable angina Chest pain NSTEMI Procedures CARDIAC CATHETERIZATION Rosa Dewey MD [facility] [place] [address] [facility] Referral ID Status Reason Start Date Expiration Date Visits Re quested Visits Authorized [id number] 1 1 Encounter Details Date Type Department Care Team (Latest Contact Info) Description 10/30/2023 5:11 PM EDT - 11/03/2023 5:13 PM EDT Hospital Encounter Heart and Vascular Unit Level 4 [place] [place] [phone] Rosa Dewey MD [facility] [place] [address] Jean Laboy MD [facility] [place] [address] Rosa Hugo MD [facility] [place] [address] 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; Tachycardia; Unstable angina Discharge Disposition: Home Social History Tobacco Use Types Packs/Day Years Used Date Smoking Tobacco: Former Smokeless Tobacco: Never Alcohol Use Standard Drinks/Week Comments Not Currently 0 (1 standard drink = 0.6 oz pur e alcohol) [facility] Utilities Answer Date Recorded In [...] and hyperlipidemia who presented to [facility] as a transfer from [facility] as a possible STEMI alert with acute onset chest pain. The patient reports that her symptoms initially began on Tuesday when she was walking to [employer] and experienced bilateral arm heaviness while walking [...] her TRU resolved. Cardiology at [facility] was consulted for transfer; the patient was loaded with aspirin 324 mg and ticagrelor 180 mg, started on a heparin drip, and given nitroglycerin with improvement in chest pain. Upon arrival to [facility], the patient was taken directly to the [facility]. Two lesions were discovered: one in the prox RCA (felt to almost be a PANELBOARD TANK PUMPER but they were able to wire, balloon, [...] Data: Admission Labs: Discharge Labs: Recent Labs 11/03/2334511/02/233411/01/23220511/01/239 10/31/23 0305 WBC 8.3 10.0* 10.4* 8.7 [...] administered prior to arrival in the laborer gold leaf. Recommended anti-platelet/anti-thrombotic regimen: Continue aspirin 81 mg [...] and low lung volumes. Findings similar to ore crusher radiograph from CT 10/30/2023. Pending Studies and [...] 10:40 AM Izaiah Meyer MD Cardiology at [place] Arrive at: [facility] [address] [phone] Future Orders Complete By Expires Referral to Cardiac Rehab [[id number] Custom] As directed Process Instructions: If no progress note charted, please enter Clinical details in comments. Scheduling Instructions: Questions: My question or request is: STEMI. Cardiac rehab at [facility]. Referral to Home Health [[id number] Custom] As directed Process Instructions: If no progress note charted, please enter Clinical details in comments. Scheduling Instructions: Comments: Please evaluate Adin Santos for admission to Home Health. [address] [facility] [address] (home) Date of : 1940 Inpatient DOCUMENTATION FOR VNA SERVICES (INCLUDING THOSE PATIENTS WITH MEDICARE COVERAGE REQUIRING HOME VNA SERVICES AND/OR HOSPICE SERVICES) PATIENT'S LOCATION: Adin Santos [address] [facility] [address] (home) Cell: Telephone Information: Deck Supervisor's Name: self In discussion with the attending physician, it is certified that this patient is under their care and that they, or a Nurse Practitioner, Clinical Nurse specialist or Physician Commercial Fisher who is working directly with them, had [...] regarding health issues HOME HEALTH CARE AGENCY: [facility] [address] [place] [address] START OF CARE: within 24-48 hours of [...] Rosie Mathews MD [address] / [facility] [address] . All A agencies which [...] Mathews MD / Dr. Masood Pierson [address] [place] [address] 11/09/23 1:55 PM arrival for 2:10 PM appointment Astronaut Mission Specialist: Izaiah Meyer MD [address] [place] [address] , 11/24/2023 10:40 AM Your Inpatient Medical Team at [facility] Name(s) of your inpatient provider(s): Attending physician: Rosa Hugo MD Resident physicians: Emile Robles MD; Elmer Tamez MD If you have non-emergent questions, prior to your follow-up visit call: Tuesday-Tuesday between the hours of 8AM-5PM please call the Cardiology Clinic [phone] to speak with a nurse. All other hours please call the Hospital [facility] [phone] and ask to speak to the gas refrigerator servicer on-call. Your Primary Care Provider Rosie Mathews MD [phone] For questions regarding this document or issues relating to this hospitalization on the Medical Service, please contact your inpatient physician through the [facility] . Issues afterhours and on weekends will be handled by the Astronaut Mission Specialist staff on-call. Associated attestation - Rosa [...] Mathews MD / Dr. Masood Pierson [address] [place] [address] 11/09/23 1:55 PM arrival for 2:10 PM appointment Astronaut Mission Specialist: Izaiah Meyer MD [address] [place] [address] , 11/24/2023 10:40 AM Your Inpatient Medical Team at [facility] Name(s) of your inpatient provider(s): Attending physician: Rosa Hugo MD Resident physicians: Emile Robles MD; Elmer Tamez MD If you have non-emergent questions, prior to your follow-up visit call: Tuesday-Tuesday between the hours of 8AM-5PM please call the Cardiology Clinic [phone] to speak with a nurse. All other hours please call the [facility] [phone] and ask to speak to the gas refrigerator servicer on-call. Your Primary Care Provider Rosie Mathews MD [phone] documented in this encounter Medications at Time of Discharge Medication Sig Dispensed Refills Start Date End Date aspirin EC 81 mg EC (DR) tablet [...] Take 1 capsule by mouth daily. 01/30/2008 oxyBUTYnin (Ditropan) 5 mg tablet Take 5 mg by mouth. 10/03/2023 05/01/20 cefPODOXime (Vantin) 200 mg tablet Take 1 tablet by mouth 2 times daily for 6 days. 12 tablet 11/03/2023 11/09/2023 CIS Free Text Med - vitamin b [...] and hyperlipidemia who presented to [facility] [...] 05 69.8 kg (153 lb 14.4 oz) 11/01/23 [...] 17 ALKPHOS 54 BILITOT 0.5 Recent Labs 11/02/233411/01/2330810/31/237 CALCIUM 9.0 8.6 8.6 MAGNESIUM 0.87 0.82 0.83 PHOS 1.6* 2.5 3.2 Recent Labs 10/31/23304 INR 1.1 PT 12.6* [...] and hyperlipidemia who presented to [facility] a [facility] [...] Resident on Cardiology Service Cardiology S1 (Pager [phone]) Note written in conjunction with Claudio Perla [facility], MS3 Associated attestation - Rosa [...] Heart Disease and Pulmonary Hypertension * Danica Shipley, TANESHA - 11/02/2023 6:08 AM EDT Sustained tachycardia [...] Nirmala Webb - 11/01/2023 11:25 AM EDT Manual Writer Encounter Note Patient Name: Adin Santos : [id number] MR#: [id number] Admit Date: 10/30/2023 5:11 PM Hospital Day 2 days Narrative: Self initiated visit to patient for Spiritual support in a regular unit rounds. Assessment: Patient is in the bathroom at the time of this visit. Not a good time for Heel Seat Flap Stapler visit. Intervention and Outcome: An attempted visit [...] and hyperlipidemia who presented to [facility] [...] 184 206 204 Recent Labs 11/01/23 03010/31/2313610/30/23 2205 NA 137 140 142 K 3.4* 3.9 3.9 CL 105 107 105 CO2 24 25 27 BUN 14 13 14 CREATININE 0.83 0.81 0.85 Recent Labs 10/30/23 2205 AST 36* ALT 17 ALKPHOS 54 BILITOT 0.5 Recent Labs 11/01/23 03010/31/23 01310/30/23 2205 CALCIUM 8.6 8.6 8.8 MAGNESIUM 0.82 0.83 [...] and low lung volumes. Findings similar to ore crusher radiograph from CT 10/30/2023. Scheduled Medications: [MAR Hold] spironolactone 12.5 mg Oral Daily [AUG [...] and hyperlipidemia who presented to [facility] a [facility] [...] Resident on Cardiology Service Cardiology S1 (Pager [phone]) Note written in conjunction with Claudio Perla [facility], MS3 Associated attestation - Rosa [...] and hyperlipidemia who presented to [facility] as a transfer from [facility] as a possible STEMI alert with acute onset chest pain. Active Problems: Active Hospital Problems Diagnosis Unstable angina Resolved Hospital Problems No resolved problems to display. 24 hr events: - Cath'd yesterday with lesion in the proximal RCA (initially thought it was PANELBOARD TANK PUMPER but they were ableto wire, balloon and [...] PLATELET 206 204 211 Recent Labs 10/31/2313610/30/23 2205 NA 140 142 K 3.9 3.9 [...] and low lung volumes. Findings similar to ore crusher radiograph from CT 10/30/2023. TTE (10/30): Interpretation [...] and hyperlipidemia who presented to [facility] a [facility] [...] Resident on Cardiology Service Cardiology S1 (Pager [phone]) Note written in conjunction with Claudio Perla [facility], MS3 Associated attestation - Rosa [...] PCP: Rosei Mathews MD PCP phone number: [phone] Date of Admission: 10/30/2023 ( Hospital Day 0 days ) Attending:Rosa Cornejo MD ID: Adin Santos is a 83 y.o. female PMH significant for hypertension and hyperlipidemia who presented to [facility] as a transfer from [facility] as a possible STEMI alert with acute onset chest pain. The patient reports that her symptoms initially began on Tuesday when she was walking to [employer] and experienced bilateral arm heaviness while walking [...] her TRU resolved. Cardiology at [facility] was consulted for transfer; the patient was loaded with aspirin 324 mg and ticagrelor 180 mg, started on a heparin drip, and given nitroglycerin with improvement in chest pain. Upon arrival to [facility], the patient was taken directly to the [facility]. 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 Findings similar to ore crusher radiograph from CT 10/30/2023. Assessment & Plan: Adin Santos is a 83 y.o. female PMH significant for hypertension and hyperlipidemia who presented to [facility] [...] HLD transferred with chest from [facility]. BP 217/68, HR 71 EKG [...] information for follow-up [facility], [place] [address] [place] [address] TANESHA BOYCE confirmed with [facility] that they will see the patient within [...] N/A Patient is insured through: Primary Insurance: [employer] MANAGED MEDICARE Payor: [employer] MANAGED MEDICARE / [...] the room. Electrolytes replaced, see MAR. laborer electroplating sites remained C/D/I with baseline ecchymosis unchanged. Pt complained of back pain, lidocaine patch given. Right IV infiltrated during infusion, patient is marked with sharpie, IV removed. See flowsheet for I+O's and safety rounding. Patient is able to make needs known and call capps within reach. PLAN MOVING FORWARD: Monitor Tele, control BP, monitor laborer gold leaf sites, D/C Planning INDIVIDUALIZED FALL PREVENTION INTERVENTIONS: [...] outpatient cardiac rehabilitation program at [facility] was discussed. Patient agrees to [...] above on RA. PT went to laborer gold leaf today. Left fem site oozed throughout shift, [...] FORWARD: Monitor Tele, control BP, monitor laborer gold leaf sites, D/C Planning INDIVIDUALIZED FALL PREVENTION INTERVENTIONS: [...] Transfer from another hospital Location: [facility] Reason for Hospitalization: chest pain [...] care in [place] must abide by [place] law. The hierarchy [...] (i) The agent with financial power of pulp mill operator or a conservator appointed in accordance [...] toilet seat Home Address confirmed as: [address] [facility] [address] Social & Family Supports: All names listed below confirmed with patient as current and correct Extended Emergency Contact Information Primary Emergency Contact: Iris Downing Address: [address] [place] [address] [facility] Mobile Relation: Child Secondary Emergency Contact: Karen More Address: [address] [facility] Mobile Relation: Child Current Care Provided by: self Provides Primary Care For: no one Caregiver if needed: child(emmanuel), adult Quality of Family relationships: involved, supportive Community Resources being provided currently: other (see comments) (receives [facility] services at home (1xweekly)) Behavioral [...] Specific Information: N/A Health/Prescription Coverage: Primary Insurance: [employer] MANAGED MEDICARE Payor: [employer] MANAGED MEDICARE / Plan: [facility] MANAGED MEDICARE PPO / Product Type: *No Product type* / Secondary Insurance: N/A Prescription Coverage: Yes Preferred Pharmacy: [facility] - [place], [place] - [address] [facility] [address] [place] [address] Status: Patient is a : No Primary Care Provider listed: Masood Pierson MD [phone] Patient/Caregiver Goals of Treatment: home when MR Potential Needs for Transition of Care: home health care Agency Referrals: Not Applicable I have met with the patient to: discuss discharge planning needs. provide the [facility], Office of Care Management letter from the Core Drill Operator pertaining to rehab referrals. provide a letter describing our affiliations within the [facility] and educate about their right to choose where referrals are sent. provide a list of Home Health Agencies / Durable Medical Equipment vendors which serve their preferred geographic area. provided patient with [facility] Star Quality Rating handout. They have requested referrals to: [facility] [address] [place] [address] Note routed to a Server Security Administrator who will communicate referrals to facilities [...] PO hydralazine added for BP control. laborer electroplating sites remain C/D/I, ecchymosis unchanged th roughout shift. See flowsheet for I+O's and safety rounding. Patient is able to make needs known and call capps within reach. PLAN MOVING FORWARD: Monitor Tele, control CP and BP, NPO at MD for cath, monitor laborer gold leaf sites, D/C Planning INDIVIDUALIZED FALL PREVENTION INTERVENTIONS: [...] 1:00 PM EST Office Visit Cardiology at [address] [place] [phone] Izaiah Meyer MD [facility] [place] [address] 08/09/2024 10:00 AM EST Hospital Encounter Non-[place] [address] Arrived Scheduled Referrals Name Type Priority Associated Diagnoses [...] [facility] Monocyte % 16.9 % [facility] Monocyte Abs 1.4(H) 0.3 - 0.9 x10(3)/mc L [facility] Eos % 3.7 % [facility] Eosinophils Abs 0.3 0.0 - 0.4 x10(3)/ L [facility] Basophil % 0.5 % [facility] Co de Phone Number [facility] [place] [address] * (ABNORMAL) Hemogram (11/03/2023 3:46 AM EDT) [...] Platelet 181 145 - 357 x10(3)/mc L [facility] RDW Standard Deviation 54.7(H) 37.0 - 46.0 fL [facility] RDW coefficient of variation 14.6(H) 11.5 - 14.1 % [facility] Mean Platelet Volume 11.2 7.6 - 12.9 fL [facility] NRBC% auto 0.0 % [facility] NRBC Absolute 0.000 0.000 - 0.000 x10(3)/mc L [facility] Blood 11/03/2023 3:46 AM EDT 11/03/2023 4:11 AM EDT Narrative Resulting Agency Comment Spec In Lab Qamar Gallardo MD HEMATOLOGY ORDERABLE S [facility] [place] [address] * Phosphorus (11/03/2023 3:46 AM EDT) [facility] Phosphorus 3.2 2.5 - 4.5 mg/dL [facility] Comment:result rechecked-KS Blood 11/03/2023 3:46 AM EDT 11/03/2023 4:11 AM EDT Narrative Resulting Agency Comment Spec In Lab Rosa Cornejo MD CHEMISTRY ORDERABLE S Performing Organization Address [facility] Co de Phone Number [facility] [place] [address] * Magnesium (11/03/2023 3:46 AM EDT) [facility] Magnesium 0.90 0.69 - 1.07 mmol/L [facility] Blood 11/03/2023 3:46 AM EDT 11/03/2023 4:11 AM EDT Narrative Resulting Agency Comment Spec In Lab Rosa Cornejo MD CHEMISTRY ORDERABLE S Performing Organization Address [facility] Co de Phone Number [facility] [place] [address] * (ABNORMAL) Basic Metabolic Panel (non-fasting) (11/03/2023 3:46 AM EDT) [facility] Glucose 105 65 - 199 mg/dL [facility] [...] CHEMISTRY ORDERABLE S [facility] [place] [address] * EKG 12 Lead (11/02/2023 12:44 PM EDT) Ventricular rate 83 BPM MUSE SYSTEM Atrial Rate 83 BPM MUSE SYSTEM P-R Interval 216 ms MUSE SYSTEM QRS Duration 90 ms MUSE SYSTEM Q-T Interval 384 ms MUSE SYSTEM QTC Calculated (Bezet) 451 ms MUSE SYSTEM Calculated P [place] 92 degrees MUSE SYSTEM Calculated R [place] -51 degrees MUSE SYSTEM Calculated T [place] -33 degrees MUSE SYSTEM INTERPRETATION Sinus rhythm with 1st degree A-V block with Premature atrial complexes Left axis deviation Moderate voltage criteria for LVH, may be normal variant ( R in aVL , Ifeanyi product ) Anterolatera l infarct (cited on or before 14-MAY-2024) Abnormal ECG When compared with ECG of [...] Cells Raw Data, Urine 10(H) <=4 /HPF [facility] Hyaline Casts, Urine 2 0 - 2 /LPF [facility] Comment: Interpret results with caution, microscopic results are from suboptimal specimen volume Clean Catch Urine 11/02/2023 11:40 AM EDT 11/02/2023 12:05 PM EDT Narrative Resulting Agency Comment Spec In Lab Elmer Tamez MD URINE ORDERABLES [facility] [place] [address] * (ABNORMAL) Urinalysis with reflex Culture (11/02/2023 [...] LABORATORY Leukocytes, Urine Dipstick Small(A) Negative [facility] Appearance, Urine Dipstick Cloudy(A) Clear [facility] Specific [place] Urine Automated >=1.030(A) 1.005 - 1.030 [facility] Color, Urine Dipstick Dark Yellow Yellow [facility] Reflex to Culture Yes [facility] Clean Catch Urine 11/02/2023 11:40 AM EDT 11/02/2023 12:04 PM EDT Narrative Resulting Agency Comment Spec In Lab Rosa Hugo MD URINE ORDERABLES [facility] [place] [address] * Respiratory Panel PCR (11/02/2023 10:15 AM EDT) Respiratory Panel Source STREETCAR REPAIRER Swab [facility] Respiratory Panel PCR Negative Negative [facility] Comment: Respiratory Panels are performed on the Back[employer] Bra[employer], using multiplexed PCR nucleic acid detection. ??Negative [...] performed using the BioFire Respiratory Panel 2.1 ([employer]) as authorized by the FDA issued Emergency Use Authorization (EUA). This panel also tests for multiple other viral and bacterial pathogens. This assay is intended for In-vitro Diagnostic (IVD) use with nasopharyngeal swabs in viral transport media. The assay is performed based on the instructions for use and additional guidance provided by the FDA. Testing is performed in laboratories within the [facility], each of which is certified under [...] fact sheets at the following FDA website: https://www.fda.gov/medical-devices/fxvzgbarcpy-zapgajd-5732-hiyve-68-waxntmici- use-a cfzyzoridturb-yhfmllh-juoigbo/exdpw-vikmcxyqkhd-avpx Human Metapneumovirus Not Detected Not Detected [facility] [...] Hugo MD MICROBIOLOGY - GEN ERAL ORDERABLES Performing Organization Address City/State/[facility] Co de Phone Number [facility] [place] [address] * XR Chest One View (11/02/2023 2:51 AM EDT) WORKSTATION ID [id number] RAD Anatomical Region Laterality Modality Chest N/A [...] who have questions please contact the health managed care provider that requested your imaging first. ? Narrative [...] patients who have questions please contactthe health managed care provider that requested your imaging first. Rosa Hugo [...] [facility] Monocyte % 12.9 % [facility] Monocyte Abs 1.3(H) 0.3 - 0.9 x10(3)/mc L [facility] Eos % 1.4 % [facility] Eosinophils Abs 0.1 0.0 - 0.4 x10(3)/mc L [facility] Basophil % 0.4 % [facility] [...] HEMATOLOGY ORDERABLE S [facility] [place] [address] * (ABNORMAL) Hemogram (11/02/2023 12:35 AM EDT) White Blood Cell 10.0(H) 4.0 - 9.5 x10(3)/ L [facility] NRBC% auto 0.0 % [facility] NRBC Absolute 0.000 0.000 - 0.000 x10(3)/mc L [facility] Blood 11/02/2023 12:3 5 AM EDT 11/02/2023 12:43 AM EDT Narrative Resulting Agency Comment Spec In Lab Qamar Gallardo MD HEMATOLOGY ORDERABLE S [facility] [place] [address] * (ABNORMAL) Phosphorus (11/02/2023 12:35 AM EDT) Phosphorus 1.6(L) 2.5 - 4.5 mg/dL [facility] Blood 11/02/2023 12:3 5 AM EDT 11/02/2023 12:43 AM EDT Narrative Resulting Agency Comment Spec In Lab Rosa Cornejo MD CHEMISTRY ORDERABLE S Performing Organization Address City/[facility]/ZIP Co de Phone Number [facility] [place] [address] * Magnesium (11/02/2023 12:35 AM EDT) Magnesium 0.87 0.69 - 1.07 mmol/L [facility] Blood 11/02/2023 12:3 5 AM EDT 11/02/2023 12:43 AM EDT Narrative Resulting Agency Comment Spec In Lab Rosa Cornejo MD CHEMISTRY ORDERABLE S Performing Organization Address City/[facility]/ZIP Co de Phone Number [facility] [place] [address] * Basic Metabolic Panel (non-fasting) (11/02/2023 12:35 [...] CHEMISTRY ORDERABLE S [facility] [place] [address] * Blood culture (11/02/2023 12:35 AM EDT) Blood Culture No growth at 5 days. [facility] Blood 11/02/2023 12:3 5 AM EDT 11/02/2023 1:55 AM EDT Comment:#2 site ukn Narrative Resulting Agency Comment Spec In Lab Rosa Hugo MD MICROBIOLOGY - BLO OD ORDERABLES Performing Organization Address City/[facility]/ZIP Co de Phone Number [facility] [place] [address] * Blood culture (11/02/2023 12:15 AM EDT) Blood Culture No growth at 5 days. [facility] Blood 11/02/2023 12:1 5 AM EDT 11/02/2023 1:54 AM EDT Comment:#1site unk Narrative Resulting Agency Comment Spec In Lab Rosa Hugo MD MICROBIOLOGY - BLO OD ORDERABLES Performing Organization Address [facility] Co de Phone Number [facility] [place] [address] * EKG 12 Lead (11/01/2023 10:10 PM EDT) Ventricular rate 139 BPM MUSE SYSTEM Atrial Rate 139 BPM MUSE SYSTEM P-R Interval 168 ms MUSE SYSTEM QRS Duration 84 ms MUSE SYSTEM Q-T Interval 286 ms MUSE SYSTEM QTC Calculated (Bezet) 435 ms MUSE SYSTEM Calculated R [place] -59 degrees MUSE SYSTEM Calculated T [place] -27 degrees MUSE SYSTEM INTERPRETATION Mid-RP tachycardia, consider sinus tachycardia or SVT Left axis deviation Moderate voltage criteria for LVH, may be normal variant ( R in aVL , [place] product ) Inferior infarct (cited on or before 01-NOV-2023) Anterolateral infarct (cited on or before 01-NOV-2023) Abnormal ECG When compared with ECG of 01-NOV-2023 15:22, Vent. rate Although rate has increased Serial changes of Anterior infarct Present I personally reviewed the tracing and edited the fellows interpretation Confirmed by fellow MD Bowen Ashley ([id number]) on 11/04/2023 7:57:50 AM Confirmed by MD Carrillo Danette ([id number]) on 11/04/2023 4:32:03 PM MUSE SYSTEM 11/01/2023 10:1 0 PM EDT 11/04/2023 4:32 PM EDT Rosa Cornejo MD ECG ORDERABLES MUSE SYSTEM * (ABNORMAL) Hemogram (11/01/2023 10:06 PM EDT) White Blood Cell 10.4(H) 4.0 - 9.5 x10(3)/mc L [facility] Red Blood Cell 4.11 4.00 - 5.21 x10(6)/mc L [facility] Hemoglobin 14.0 [...] Platelet 197 145 - 357 x10(3)/mc L [facility] RDW Standard Deviation 54.0(H) 37.0 - 46.0 fL [facility] RDW coefficient of variation 14.6(H) 11.5 - 14.1 % [facility] Mean Platelet Volume 11.2 7.6 - 12.9 fL [facility] NRBC% auto 0.0 % [facility] NRBC Absolute 0.000 0.000 - 0.000 x10(3)/mc L [facility] Blood 11/01/2023 10:0 6 PM EDT 11/01/2023 10:22 PM EDT Narrative Resulting Agency Comment Spec In Lab Rosa Hugo MD HEMATOLOGY ORDERAB LES [facility] [place] [address] * POCT Glucose (11/01/2023 5:59 PM EDT) Glucose, POC 104 65 - 199 mg/dL [facility] Comment: Supplemental ranges: <140 mg/dL before meals <180 mg/dL all other times of the day Blood 11/01/2023 5:59 PM EDT 11/01/2023 5:59 PM EDT Rosa Hugo MD POINT OF CARE TEST ORDERABLES Performing Organization Address City/[facility]/ZIP Co de Phone Number [facility] [place] [address] * POCT Glucose (11/01/2023 5:35 PM EDT) Glucose, POC 85 65 - 199 mg/dL [facility] Comment: Supplemental ranges: <140 mg/dL before meals <180 mg/dL all other times of the day Blood 11/01/2023 5:35 PM EDT 11/01/2023 5:35 PM EDT Rosa Hugo MD POINT OF CARE TEST ORDERABLES Performing Organization Address City/[facility]/ZIP Co de Phone Number [facility] [place] [address] * EKG 12 Lead (11/01/2023 3:22 PM EDT) Ventricular rate 59 BPM MUSE SYSTEM Atrial Rate 59 BPM MUSE SYSTEM P-R Interval 220 ms MUSE SYSTEM QRS Duration 94 ms MUSE SYSTEM Q-T Interval 428 ms MUSE SYSTEM QTC Calculated (Bezet) 423 ms MUSE SYSTEM Calculated P [place] 76 degrees MUSE SYSTEM Calculated R [place] -50 degrees MUSE SYSTEM Calculated T [place] -59 degrees MUSE SYSTEM INTERPRETATION Sinus bradycardia [...] Narrative 11/02/2023 4:57 PM EDT ?[facility] ? Cardiac Catheterization/Intervention Report ? Patient Name: Adin Santos. ? Procedure Date: 11/01/2023 ? A #: [id number] ? Primary Physician: Otto, Rosa I ? Case #: [id number] ? File Name: [id number] ? Catheterization Order Number: [id number] ? [facility] ? Final Report [place], [place] ? Patient Name: ? Adin M. Goguen ?ID#: ?[id number] ? : ?1940 ? Procedure Date: ? [...] as ASA Class III. The HA clinical ?frailty scale is 4: Vulnerable. ? [...] was Urgent. The indication for ?the laborer gold leaf visit is ACS greater than 24 hrs. [...] premounted ? 3.50 x 15 mm Andrea Oradell (RADHA) was deployed with a maximum ? [...] ? A premounted 3.50 x 15 mm [place] Oradell (RADHA) was deployed ? with a maximum [...] administered prior to arrival in the laborer gold leaf. ?Recommended anti-platelet/anti-thrombotic regimen: ?Continue aspirin 81 mg daily for indefinitely. ?Continue clopidogrel 75 mg daily for 12 months then stop. ?These recommendations are made at the time of the intervention. Patient ?and provider preferences or a changing clinical situation may require ?modification of this regimen. Consult [facility] for ?questions. ?The 1 year [...] Rosa Dewey MD - 12/12/2023 [facility] Cardiac Catheterization/Intervention Report Patient Name: Adin Santos Procedure Date: 11/01/2023 A #: [id number] Primary Physician: Rosa Dewey I Case #: [id number] File Name: [id number] Catheterization Order Number: [id number] [facility] FinalReport [place], [place] Patient Name: Adin Santos ID#:[id number] :1940 Procedure Date: November 01, 2023 Case #: [id number] Room: 2 Case Physician: Rosa Dewey M.D. [...] procedure was Urgent. The indicationfor the laborer gold leaf visit is ACS greater than 24 hrs. [...] 14 atmospheres. Apremounted 3.50 x 15 mm [place] Oradell (RADHA) was deployed with amaximum inflation pressure [...] The lesion was predilated with a 3.00mm [id number] MM balloon with a maximum inflation pressure of 14atmospheres. A premounted 3.50 x 15 mm [place] Oradell (RADHA) wasdeployed with a maximum inflation pressure [...] administered prior to arrival in the laborer gold leaf. Recommended anti-platelet/anti-thrombotic regimen: Continue aspirin 81 mg daily for indefinitely. Continue clopidogrel 75 mg daily for 12 months then stop. These recommendations are made at the time of the intervention.Patient and provider preferences or a changing clinical situation mayrequire modification of this regimen. Consult [facility]iology[facility] questions. The 1 year bleeding [...] TEST O RDERABLES [facility] [place] [address] * (ABNORMAL) Differential, Automated (11/01/2023 3:09 AM EDT) Neutrophil % 63.9 % [facility] Neutrophil Absolute 5.54 1.70 - 6.10 x10(3)/mc L [facility] Lymph % 20.0 % [facility] Lymphocytes Abs 1.7 0.9 - 3.2 x10(3)/mc L [facility] Monocyte % 11.9 % [facility] Monocyte Abs 1.0(H) 0.3 - 0.9 x10(3)/ L [facility] Eos % 3.2 % [facility] Eosinophils Abs 0.3 0.0 - 0.4 x10(3)/[facility] Basophil % 0.5 % [facility] Baso Absolute 0.0 0.0 - 0.1 x10(3)/[facility] Immature Gran % 0.50 % [facility] Comment: Immature granulocytes(IG's)percentage and absolute count will include metamyelocytes, myelocytes, and promyelocytes. Blood smears from CBCs yielding IG's will be scanned manually for concordance. If this scan disagrees with the automated IG or if promyelocytes are noted, a manual differential will be performed. Immature Gran Absolute 0.04 0.00 - 0.04 x10(3)/[facility] Blood 11/01/2023 3:09 AM EDT 11/01/2023 3:29 AM EDT Narrative Resulting Agency Comment Spec In Lab Qamar Gallardo MD HEMATOLOGY ORDERABLE S [facility] [place] [address] * (ABNORMAL) Hemogram (11/01/2023 3:09 AM EDT) White Blood Cell 8.7 4.0 - 9.5 x10(3)/[facility] Red Blood Cell 3.72(L) 4.00 - 5.21 x10(6)/[facility] Hemoglobin 12.5 11.7 - 15.5 [...] [facility] NRBC% auto 0.0 % [facility] NRBC Absolute 0.000 0.000 - 0.000 x10(3)/mc L [facility] Blood 11/01/2023 3:09 AM EDT 11/01/2023 3:29 AM EDT Narrative Resulting Agency Comment Spec In Lab Qamar Gallardo MD HEMATOLOGY ORDERABLE S [facility] [place] [address] * Phosphorus (11/01/2023 3:09 AM EDT) Phosphorus 2.5 2.5 - 4.5 mg/dL [facility] Blood 11/01/2023 3:09 AM EDT 11/01/2023 3:29 AM EDT Narrative Resulting Agency Comment Spec In Lab Rosa Cornejo MD CHEMISTRY ORDERABLE S [facility] [place] [address] * Magnesium (11/01/2023 3:09 AM EDT) Magnesium 0.82 0.69 - 1.07 mmol/L [facility] Blood 11/01/2023 3:09 AM EDT 11/01/2023 3:29 AM EDT Narrative Resulting Agency Comment Spec In Lab Rosa Cornejo MD CHEMISTRY ORDERABLE S [facility] [place] [address] * (ABNORMAL) Basic Metabolic Panel (non-fasting) (11/01/2023 [...] Comment Spec In Lab Rosa Conrejo MD CHEMISTRY ORDERABLE S Performing Organization Address City/[facility]/ZIP Co de Phone Number [facility] [place] [address] * (ABNORMAL) Troponin (10/31/2023 2:46 PM EDT) [...] can be found in the [facility] Test Catalog Troponin - [facility] Test Catalog Reference: [place] Definition of Myocardial Infarction. Journal of the [place] [employer] 2018;72:9832-2620 Blood 10/31/2023 2:46 PM EDT 10/31/2023 2:55 PM EDT Narrative Resulting Agency Comment Spec In Lab Jean Laboy MD CHEMISTRY ORDERABLES Performing Organization Address City/[facility]/ZIP Co de Phone Number [facility] [place] [address] * EKG 12 Lead (10/31/2023 1:07 PM EDT) Ventricular rate 54 BPM MUSE SYSTEM Atrial Rate 54 BPM MUSE SYSTEM P-R Interval 218 ms MUSE SYSTEM QRS Duration 92 ms MUSE SYSTEM Q-T Interval 540 ms MUSE SYSTEM QTC Calculated (Bezet) 512 ms MUSE SYSTEM Calculated P [place] 85 degrees MUSE SYSTEM Calculated R [place] -44 degrees MUSE SYSTEM Calculated T [place] -69 degrees MUSE SYSTEM INTERPRETATION Sinus bradycardia with 1st degree A-V block Left axis deviation Moderate voltage criteria for LVH, may be normal variant ( R in aVL , [place] product ) T wave abnormality, consider inferolateral [...] [place] Troponin-T, High Sensitivity 580(H) <=14 ng/L [facility] [...] can be found in the [facility] Test Catalog Troponin - [facility] Test Catalog Reference: Fourth [place] Definition of Myocardial Infarction. Journal of the [place] [employer] 2018;72:0777-4157 Blood 10/31/2023 11:3 7 AM EDT 10/31/2023 11:50 AM EDT Narrative Resulting Agency Comment Spec In Lab Rosa Cornejo MD CHEMISTRY ORDERABLE S [facility] [place] [address] * ECHO COMPLETE (10/31/2023 8:52 AM EDT) Anatomical Region Laterality Modality Cardiac Other 10/31/2023 7:57 AM EDT Narrative 10/31/2023 9:45 AM EDT [address] [place] [address] ? Echocardiogram Report Name: ADIN SANTOS ? Study Date: 10/31/2023 07:57 AMBP: 106/76 mmHg ? Patient Location: [address] : 1940 ? Height: 163 cm ? Account: [id number] Age: 83 yrs ? Weight: 76 kg Gender: Female ?BSA: 1.8 m2 Ordering Physician: ROSA DEWEY Referring Physician: OMAIRA GIRON Performed By: HAFSA Carmichael Reason For Study: STEMI Interpreting Fellow: Raymond Warren. Exam Location: [facility]. Interpretation Summary -The left [...] is no prior echocardiogram for comparison. Procedure Complete-93321. Satisfactory quality. There is sinus bradycardia. Left [...] Note Edgard Wang MD - 10/31/2023 [address] [place] [address] Echocardiogram Report Name: ADIN SANTOS Study Date: 407:57 AMBP: 106/76 mmHg Patient Location: [address] : 1940 Height: 163 cm Account: [id number] Age: 83 yrs Weight: 76 kg Gender: Female BSA: 1.8 m2 Ordering Physician: ROSA DEWEY Referring Physician: OMAIRA GIRON Performed By: HAFSA Carmichael Reason For Study: STEMI Interpreting Fellow: Raymond Warren. Exam Location: [facility]. Interpretation Summary -The left [...] is no prior echocardiogram for comparison. Procedure Complete-40230. Satisfactory quality. There is sinus bradycardia. Left [...] * (ABNORMAL) Troponin (10/31/2023 8:51 AM EDT) [facility] Troponin-T, High Sensitivity 571(H) <=14 ng/L [facility] [...] can be found in the [facility] Test Catalog Troponin - [facility] Test Catalog Reference: Fourth [place] Definition of Myocardial Infarction. Journal of the [place] [employer] 2018;72:1951-7026 Blood 10/31/2023 8:51 AM EDT 10/31/2023 9:12 AM EDT Narrative Resulting Agency Comment Spec In Lab Rosa Cornejo MD CHEMISTRY ORDERABLE S Performing Organization Address [facility] Co de Phone Number [facility] [place] [address] * CARDIAC CATHETERIZATION (10/31/2023 8:10 AM EDT) Anatomical Region Laterality Modality Other Narrative 11/07/2023 9:42 AM EDT ?[facility] ? Cardiac Catheterization/Intervention Report ? Patient Name: Adin Santos ? Procedure Date: 10/30/2023 ? A #: [id number] ? Primary Physician: Rosa Dewey I ? Case #: [id number] ? File Name: [id number] ? Catheterization Order Number: [id number] ? [facility] ? Final Report [place], [place] ? Patient Name: ? Adin M. Goguen ?ID#: ?[id number] ? : ?1940 ? Procedure Date: ? [...] was designated as ASA Class III. The [facility] clinical frailty scale ?is 5: Mildly [...] was Emergent. The indication for ?the laborer gold leaf visit is ACS less than or equal [...] A premounted 4.00 x 38 mm Andrea Oradell (RADHA) was deployed ? with a maximum [...] administered prior to arrival in the laborer gold leaf. ?Recommended anti-platelet/anti-thrombotic regimen: ?Continue aspirin 81 mg daily for 12 months then stop. ?Continue clopidogrel 75 mg daily for indefinitely. ?These recommendations are made at the time of the intervention. Patient ?and provider preferences or a changing clinical situation may require ?modification of this regimen. Consult [facility] for ?questions. ? Conclusions: ?* [...] Rosa Dewey MD - 12/05/2023 [facility] Cardiac Catheterization/Intervention Report Patient Name: Adin Santos Procedure Date: 10/30/2023 A #: [id number] Primary Physician: Rosa Dewey I Case #: [id number] File Name: [id number] Catheterization Order Number: [id number] [facility] FinalReport [place], [place] Patient Name: Adin Santos ID#:[id number] :1940 Procedure Date: October 30, 2023 Case [...] was designated as ASA Class III. The [facility] clinical frailtyscale is 5: Mildly Frail. Diagnostic Tests: Electrocardiography: EKG was assessed by ECG. EKG was Abnormal. EKG showed STDeviation >= 0.5 mm, other abnormality and dynamic EKG changes. Medications Prior to Procedure: Aspirin, Angiotensin II Receptor Rodrick, Beta Rodrick andStatin. Indications for Diagnostic Cath: The priority of the diagnostic procedure was Emergent. Theindication for the laborer gold leaf visit is ACS less than or equal [...] The priority for the procedure was Emergent.The [facility] indication for the procedure was STEMI-Immediate PCI [...] 16atmospheres. A premounted 4.00 x 38 mm [place] Oradell (RADHA) wasdeployed with a maximum inflation pressure [...] administered prior to arrival in the laborer gold leaf. Recommended anti-platelet/anti-thrombotic regimen: Continue aspirin 81 mg daily for 12 months then stop. Continue clopidogrel 75 mg daily for indefinitely. These recommendations are made at the time of the intervention.Patient and provider preferences or a changing clinical situation mayrequire modification of this regimen. Consult [facility]iologyfor questions. Conclusions: * Two vessel [...] present for the entire procedure. Dr. Rosa Deewy M.D. was present during the [...] can be found in the [facility] Test Catalog Troponin - [facility] Test Catalog Reference: Fourth [place] Definition of Myocardial Infarction. Journal of the [place] [employer] 2018;72:7573-0944 Blood 10/31/2023 4:21 AM EDT 10/31/2023 4:30 AM EDT Narrative Resulting Agency Comment Spec In Lab Rosa Cornejo MD CHEMISTRY ORDERABLE S [facility] [place] [address] * (ABNORMAL) Differential, Automated (10/31/2023 3:05 AM EDT) Neutrophil % 71.7 % [facility] Neutrophil Absolute 8.21(H) 1.70 - 6.10 x10(3)/mc L [facility] Lymph % 16.9 % [facility] Lymphocytes Abs 1.9 0.9 - 3.2 x10(3)/mc L [facility] Monocyte % 9.4 % [facility] Monocyte Abs 1.1(H) 0.3 - 0.9 x10(3)/mc L [facility] Eos % 1.3 % [facility] Eosinophils Abs 0.2 0.0 - 0.4 x10(3)/mc L [facility] Basophil % 0.4 % [facility] [...] HEMATOLOGY ORDERABLE S [facility] [place] [address] * (ABNORMAL) Hemogram (10/31/2023 3:05 AM EDT) [...] HOSPITAL LABORATORY NRBC% auto 0.0 % [facility] NRBC Absolute 0.000 0.000 - 0.000 x10(3)/mc L [facility] Blood 10/31/2023 3:05 AM EDT 10/31/2023 3:13 AM EDT Narrative Resulting Agency Comment Spec In Lab Qamar Gallardo MD HEMATOLOGY ORDERABLE S Performing Organization Address [facility] Co de Phone Number [facility] [place] [address] * (ABNORMAL) APTT (10/31/2023 3:05 AM EDT) [...] MD HEMATOLOGY ORDERABL ES Performing Organization Address [facility] de Phone Number [facility] [place] [address] * (ABNORMAL) Prothrombin Time (10/31/2023 3:05 AM [...] HEMATOLOGY ORDERABL ES [facility] [place] [address] * (ABNORMAL) Differential, Automated (10/31/2023 1:37 AM EDT) Neutrophil % 71.1 % [facility] Neutrophil Absolute 7.53(H) 1.70 - 6.10 x10(3)/mc L [facility] Lymph % 18.0 % [facility] Lymphocytes Abs 1.9 0.9 - 3.2 x10(3)/mc L [facility] Monocyte % 8.7 % [facility] Monocyte Abs 0.9 0.3 - 0.9 x10(3)/mc L [facility] Eos % 1.6 % [facility] Eosinophils Abs 0.2 0.0 - 0.4 x10(3)/mc L [facility] Basophil % 0.4 % [facility] [...] HEMATOLOGY ORDERABLE S [facility] [place] [address] * (ABNORMAL) Hemogram (10/31/2023 1:37 AM EDT) [...] [facility] NRBC% auto 0.0 % [facility] NRBC Absolute 0.000 0.000 - 0.000 x10(3)/mc L [facility] Blood 10/31/2023 1:37 AM EDT 10/31/2023 1:46 AM EDT Narrative Resulting Agency Comment Spec In Lab Qamar Gallardo MD HEMATOLOGY ORDERABLE S [facility] [place] [address] * Phosphorus (10/31/2023 1:37 AM EDT) Phosphorus 3.2 2.5 - 4.5 mg/dL [facility] Blood 10/31/2023 1:37 AM EDT 10/31/2023 1:46 AM EDT Narrative Resulting Agency Comment Spec In Lab Rosa Cornejo MD CHEMISTRY ORDERABLE S Performing Organization Address City/[facility]/ZIP Co de Phone Number [facility] [place] [address] * Magnesium (10/31/2023 1:37 AM EDT) Magnesium 0.83 0.69 - 1.07 mmol/L [facility] Blood 10/31/2023 1:37 AM EDT 10/31/2023 1:46 AM EDT Narrative Resulting Agency Comment Spec In Lab Rosa Cornejo MD CHEMISTRY ORDERABLE S Performing Organization Address City/[facility]/ZIP Co de Phone Number [facility] [place] [address] * Basic Metabolic Panel (non-fasting) (10/31/2023 1:37 AM EDT) Glucose 114 65 - 199 mg/dL [facility] [...] CHEMISTRY ORDERABLE S [facility] [place] [address] * (ABNORMAL) Troponin (10/31/2023 1:37 AM EDT) [...] can be found in the [facility] Test Catalog Troponin - [facility] Test Catalog Reference: Fourth [place] Definition of Myocardial Infarction. Journal of the [place] [employer] 2018;72:5441-5324 Blood 10/31/2023 1:37 AM EDT 10/31/2023 1:46 AM EDT Narrative Resulting Agency Comment Spec In Lab Rosa Cornejo MD CHEMISTRY ORDERABLE S Performing Organization Address City/[facility]/ZIP Co de Phone Number [place] [phone] * EKG 12 Lead (10/31/2023 1:20 AM EDT) Ventricular rate 52 BPM MUSE SYSTEM Atrial Rate 52 BPM MUSE SYSTEM P-R Interval 224 ms MUSE SYSTEM QRS Duration 108 ms MUSE SYSTEM Q-T Interval 544 ms MUSE SYSTEM QTC Calculated (Bezet) 505 ms MUSE SYSTEM Calculated P [place] 90 degrees MUSE SYSTEM Calculated [place] -57 degrees MUSE SYSTEM Calculated T [place] -63 degrees MUSE SYSTEM INTERPRETATION Sinus bradycardia [...] (Bezet) 497 ms MUSE SYSTEM Calculated P [place] 75 degrees MUSE SYSTEM Calculated [place] -53 degrees MUSE SYSTEM Calculated [place] -57 degrees MUSE SYSTEM INTERPRETATION Sinus bradycardia with 1st degree A-V block Left anterior fascicular block Moderate voltage criteria for LVH, may be normal variant ( R in aVL , [place] product ) T wave abnormality, consider inferior [...] View (10/30/2023 10:10 PM EDT) WORKSTATION ID [id number] DH RAD Anatomical Region Laterality Modality Chest [...] and low lung volumes. Findings similar to ore crusher radiograph from CT 10/30/2023. Thank you for letting us participate in the care of this patient. ??If you are a health care provider and have any questions regarding this report, please contact the number below. ??For patients who have questions please contact the health managed care provider that requested your imaging first. ? Narrative [...] and low lung volumes. Findings similar to ore crusher radiograph from CT 10/30/2023. Thank you for letting us participate in the care of this patient. If youare a health care provider and have any questions regarding this report,please contact the number below. For patients who have questions please contactthe health managed care provider that requested your imaging first. Rosa Cornejo MD IMG DX ORDERABLES * Green Tube HOLD (10/30/2023 10:05 PM EDT) [facility] Green Hold Sample in lab. [facility] Blood Venous Draw / Unknown 10/30/2023 10:05 PM EDT 10/30/2023 10:13 PM EDT Qamar Gallardo MD CHEMISTRY ORDERABLES [facility] [place] [address] * (ABNORMAL) Differential, Automated (10/30/2023 10:05 PM EDT) Pathologist [facility] [facility] [place] Neutrophil % 76.6 % [facility] Neutrophil Absolute 6.94(H) 1.70 - 6.10 x10(3)/mc L [facility] Lymph % 15.4 % [facility] Lymphocytes Abs 1.4 0.9 - 3.2 x10(3)/mc L [facility] Monocyte % 6.1 % [facility] Monocyte Abs 0.6 0.3 - 0.9 x10(3)/mc L [facility] Eos % 1.1 % [facility] Eosinophils Abs 0.1 0.0 - 0.4 x10(3)/mc L [facility] Basophil % 0.6 % [facility] Co de Phone Number [facility] [place] [address] * (ABNORMAL) Hemogram (10/30/2023 10:05 PM EDT) [...] [facility] NRBC% auto 0.0 % [facility] NRBC Absolute 0.000 0.000 - 0.000 x10(3)/mc L [facility] Blood 10/30/2023 10:0 5 PM EDT 10/30/2023 10:12 PM EDT Narrative Resulting Agency Comment Spec In Lab Qamar Gallardo MD HEMATOLOGY ORDERABLE S Performing Organization Address City/[facility]/ZIP Co de Phone Number [facility] [place] [address] * Hemoglobin A1c (10/30/2023 10:05 PM EDT) Pathologist [facility], [place] Hemoglobin A1c 5.5 4.3 - 5.6 % [...] Mellitus, Diabetes Care 2013; 36: Suppl. 1, S61-74 Estimated Average Glucose See note mg/dL [facility] Comment: Estimated Average Glucose not appropriate for patients over 70 years of age. Blood 10/30/2023 10:0 5 PM EDT 10/30/2023 10:12 PM EDT Narrative Resulting Agency Comment Spec In Lab Rosa Cornejo MD CHEMISTRY ORDERABLE S [facility] [place] [address] * Lipid Panel (Reflex Direct LDL) (10/30/2023 10:05 PM EDT) Pathologist [facility] [place] Cholesterol, Total 218 mg/dL Dorene THURMAN [facility] Comment: Desirable: ? <200 mg/dL Borderline High: 200-239 mg/dL Higher: ?>js=211 mg/dL Triglyceride 46 mg/dL [facility] Comment: Normal: ?<150 mg/dL Borderline High: 150-199 mg/dL High: ?200-499 mg/dL Very High: ? >ha=923 mg/dL HDL Cholesterol 64 mg/dL [facility] Comment: Females: High Risk: <50 mg/dL Males: High Risk: <40 mg/dL LDL Cholesterol 145 mg/dL [facility] Comment: Desirable: ? <100 mg/dL Above Desirable: 100-129 mg/dL Borderline High: 130-159 mg/dL High: ?160-189 mg/dL Very High: ? >cp=712 mg/dL Lipid Interpretation See Note [facility] [...] individuals with atherosclerotic cardiovascular disease (ASCVD)or LDL >vf=440 mg/dL, use a high-intensity statin (40-80 mg [...] MD CHEMISTRY ORDERABLE S Performing Organization Address [facility] Co de Phone Number [facility] [place] [address] * TSH [place] (10/30/2023 10:05 PM EDT) Thyroid Stimulating Hormone 3.35 0.27 - 4.20 mcIU/mL [facility] Comment: Reference Interval (mcIU/mL): Females: ??First Trimester: 0.23-3.88 ??Second Trimester: 0.22-3.90 ??Third Trimester: 0.44-4.66 Blood 10/30/2023 10:0 5 PM EDT 10/30/2023 10:12 PM EDT Narrative Resulting Agency Comment Spec In Lab Rosa Cornejo MD CHEMISTRY ORDERABLE S Performing Organization Address City/[facility]/ZIP Co de Phone Number [facility] [place] [address] * pro-Brain Natriuretic Peptide (10/30/2023 10:05 PM EDT) NT-proBNP 375 <=449 pg/mL [facility] Blood 10/30/2023 10:0 5 PM EDT 10/30/2023 10:12 PM EDT Narrative Resulting Agency Comment Spec In Lab Rosa Cornejo MD CHEMISTRY ORDERABLE S [facility] [place] [address] * (ABNORMAL) Comprehensive metabolic panel (non-fasting) (10/30/2023 10:05 PM EDT) Pathologist [facility] [place] Glucose 121 65 - 199 mg/dL [facility] [...] MD CHEMISTRY ORDERABLE S Performing Organization Address City/[facility]/ZIP Co de Phone Number [facility] [place] [address] * Phosphorus (10/30/2023 10:05 PM EDT) Phosphorus 3.3 2.5 - 4.5 mg/dL [facility] Blood 10/30/2023 10:0 5 PM EDT 10/30/2023 10:12 PM EDT Narrative Resulting Agency Comment Spec In Lab Rosa Cornejo MD CHEMISTRY ORDERABLE S Performing Organization Address City/[facility]/ZIP Co de Phone Number [facility] [place] [address] * Magnesium (10/30/2023 10:05 PM EDT) Magnesium 0.86 0.69 - 1.07 mmol/L [facility] Blood 10/30/2023 10:0 5 PM EDT 10/30/2023 10:12 PM EDT Narrative Resulting Agency Comment Spec In Lab Rosa Cornejo MD CHEMISTRY ORDERABLE S Performing Organization Address City/[facility]/ZIP Co de Phone Number [facility] [place] [address] * (ABNORMAL) Troponin (10/30/2023 10:05 PM EDT) [...] can be found in the [facility] Test Catalog Troponin - [facility] Test Catalog Reference: Fourth [place] Definition of Myocardial Infarction. Journal of the [place] [employer] 2018;72:6353-2202 Blood 10/30/2023 10:0 5 PM EDT 10/30/2023 10:12 PM EDT Narrative Resulting Agency Comment Spec In Lab Rosa Corneoj MD CHEMISTRY ORDERABLE S [facility] [place] [address] * EKG 12 Lead (10/30/2023 8:21 PM EDT) Ventricular rate 49 BPM MUSE SYSTEM Atrial Rate 49 BPM MUSE SYSTEM P-R Interval 230 ms MUSE SYSTEM QRS Duration 96 ms MUSE SYSTEM Q-T Interval 526 ms MUSE SYSTEM QTC Calculated (Bezet) 475 ms MUSE SYSTEM Calculated P [place] 98 degrees MUSE SYSTEM Calculated R [place] -48 degrees MUSE SYSTEM Calculated T [place] -51 degrees MUSE SYSTEM INTERPRETATION Sinus bradycardia with 1st degree A-V block Incomplete right bundle branch block Left anterior fascicular block Moderate voltage criteria for LVH, may be normal variant ( R in aVL , [place] product ) T wave abnormality, consider inferior [...] at 0900, Administer over 60 Minutes New 11/03/2023 8:25 AM EDT 1 g 100 [...] Danica Shipley RN)1338 (Given - Provider: Lucretia Thurman RN) hydrALAZINE (Apresoline) tablet 10 mg (CANCELED) 10 mg, Oral, 3 TIMES DAILY, First dose (after last modification) on Tue10/31/23 at 1815, Until Discontinued, Take with Food, Routine 0939 (Given - Provider: Mary Sweeney RN)1333 (AUG Hold - Provider: Admin Adt - Reason: Transfer to a Procedural area)1500 (Automatically Held - Provider: Admin Adt)1548 (AUG Unhold - Provider: Admin Adt)1848 (Given - Provider: Mary Sweeney, RN)2019 (Given - Provider: Danica Shipley, RN) 0937 (Given - Provider: Mary Sweeney, TANESHA) lidocaine (Lidoderm) 5% patch 1 patch 1 [...] Minutes 0825 (New Bag - Provider: Lucretia Thurman RN)0925 (Stopped - Provider: Lucretia Thurman RN) metoprolol succinate XL (Toprol-XL) tablet 12.5 mg 12.5 mg, Oral, DAILY, First dose (after last modification) on Tue11/03/23 at 1015, Until Discontinued, DO NOT CRUSH OR OPEN, Routine 1020 (Given - Provider: Lucretia Thurman, TANESHA) potassium chloride ER (Klor-Con M) crystal tablet [...] Leblanc RN)1350 (New Bag - Provider: Lolly Leblanc RN)1659 (Stopped - Provider: Mary Sweeney RN)1700 (New Bag - Provider: Mary Sweeney RN)2100 (Stopped - Provider: Danica Shipley, TANESHA) sodium chloride 0.9 % (flush) (BD PosiFlush Normal Saline 0.9) flush 5 mL 5 mL, Intravenous, 2 TIMES DAILY, First dose on Tue10/30/23 at 2300, Until Discontinued, Routine 0900 (Given - Provider: Mary Sweeney RN)1333 (AUG Hold - Provider: Admin Adt - Reason: Transfer to a Procedural area)1548 (MAR Unhold - Provider: Admin Adt)2019 (Given - Provider: Danica Shipley, TANESHA) 0900 [...] Jason Jimenes RN)1455 (Given - Provider: Jean Oliveira, TANESHA) heparin (porcine) (1,000 units/mL) injection (CANCELED) PRN, [...] last 24 to 72 hours., Routine 1333 ([facility] Hold - Provider: Admin Adt - Reason: Transfer to a Procedural area)1548 ([facility] Unhold - Provider: Admin Adt) sodium chloride 0.9 % (flush) (BD PosiFlush Normal Saline 0.9) flush 5-20 mL 5-20 mL, Intravenous, EVERY 1 MIN PRN, Starting on 10/30/23 at 2208, Until Amna 11/03/23 at 1913, flush, Flush pertains to all indwelling lines. Flush per protocol found in the job aid using the link provided on this medication record., Routine 1333 ([facility] Hold - Provider: Admin Adt - Reason: Transfer to a Procedural area)1548 ([facility] Unhold - Provider: Admin Adt) documented in this encounter Additional Health Concerns Infection Onset Date Last Indicated Resolved Time Rule Out Respiratory 11/02/2023 11/02/2023 024 12:22 PM EDT Rule Out COVID-19 11/02/2023 11/02/2023 11/02/2023 12:22 PM EDT documented as of this encounter Care Teams Core Maker Helper Relationship Specialty Start Date End Date Rosie Mathews MD [address] [place] [address] PCP - General Family Medicine 11/25/17 11/23/23 documented as of this encounter
--- OUTSIDE RECORDS SUMMARY | 2024-07-25 15:44 | XMS_ITS | Encounter Summary ---
Author Organization [facility] Address [facility] [place] [address] Care Team Providers Care Immigration Consultant Name Role Phone Masood Pierson MD Primary Care Provider [phone] Encounter Details Date Type Department Care Team (Late st Contact Info) Description 12/16/2023 Telephone Cardiology at [address] [phone] Izaiah Meyer MD [facility] [place] [address] Social History Tobacco Use Types Packs/Day Years Used Date Smoking Tobacco: Former Smokeless Tobacco: Never Alcohol Use Standard Drinks/Week Comments Not Currently 0 (1 standard drink = 0.6 oz pur e alcohol) [facility] Utilities Answer Date Recorded In the [...] RN - 12/16/2023 11:25 AM EDT Denise, [facility] Cardiac dance artist, called to report that at today's session [...] 1:00 PM EST Office Visit Cardiology at [address] [place] [address] Izaiah Meyer MD [facility] [place] [address] 08/09/2024 10:00 AM EST Hospital Encounter Non-[place] [address] Arrived documented as of this encounter Visit Diagnoses Not on filedocumented in this encounter Care Teams Immigration Consultant Relationship Specialty Start Date End Date Masood Pierson MD [address] [place] [address] PCP - General Family Medicine 11/24/23 documented as of this encounter
--- OUTSIDE RECORDS SUMMARY | 2024-07-25 15:44 | XMS_ITS | Encounter Summary ---
Author Organization [facility] [place] [address] Care Team Providers Care Supervisor Sample Preparation Name Role Phone Rosie Mathews MD Primary Care Provider [phone] Reason for Visit * Reason Onset Date Comments Referral 11/03/2023 Coronary Artery Disease 11/03/2023 Encounter Details Date Type Department Care Team (Late st Contact Info) Description 11/03/2023 Telephone Cardiology at [address] [phone] Andressa Machado, ux lead; Coronary Artery Disease Social History Tobacco Use [...] in a [facility] (including now)? No 11/01/2023 IPV Inpatient Questions [...] were not included. Heart and Vascular Clinics [facility] [address] [place] [id number] Lyla was referred to this Cardiology clinic in [place] for post cardiac cath 10/31 for STEMI follow up as part of her discharge plan from [facility].. documented in this encounter Plan of Treatment Upcoming Encounters Date Type Department Care Team (Late st Contact Info) Description 08/07/2024 1:00 PM EST Office Visit Cardiology at [address] [place] [phone] Izaiah Meyer MD [facility] [place] [address] 08/09/2024 10:00 AM EST Hospital Encounter Non-Invasive [place] [address] Arrived documented as of this encounter Visit Diagnoses Not on filedocumented in this encounter Care Teams Supervisor Sample Preparation Relationship Specialty Start Date End Date Rosie Mathews MD [address] [place] [id number] PCP - General Family Medicine 11/25/17 11/23/23 documented as of this encounter
--- OUTSIDE RECORDS SUMMARY | 2024-07-25 15:44 | XMS_ITS | Encounter Summary ---
Author Organization [facility] [place] [address] Care Team Providers Care Spinning Frame Tender Name Role Phone Masood Pierson MD Primary Care Provider [phone] Encounter Details Date Type Department Care Team [...] PM EST Office Visit Cardiology at [address] [phone] Izaiah Meyer MD [facility] [place] [address] 08/09/2024 10:00 AM EST Hospital Encounter Non-Invasive [place] [address] Arrived documented as of this encounter Visit Diagnoses Not on filedocumented in this encounter Care Teams Spinning Frame Tender Relationship Specialty Start Date End Date Masood Pierson MD [address] [place] [address] PCP - General Family Medicine 11/24/23 documented as of this encounter
--- OUTSIDE RECORDS SUMMARY | 2024-07-25 15:45 | XMS_ITS | Encounter Summary ---
[place] [address] Care Team Providers Care Skin Lifter Bacon Name Role Phone Rosie Mathews MD Primary Care Provider [phone] Reason for Visit * Auth/Cert (Routine) Specialty Diagnoses / Procedures Referred By John t Referred To Contact Diagnoses Unstable angina Chest pain NSTEMI Procedures CARDIAC CATHETERIZATION Rosa Dewey MD [facility] [place] [address] [place] [address] [facility] Referral ID Status Reason Start Date Expiration Date Visits Re quested Visits Authorized [id number] 1 1 Encounter Details Date Type Department Care Team (Late st Contact Info) Description 11/01/2023 3:33 PM EDT - 11/01/2023 5:03 PM EDT [place] [address] Rosa Dewey MD [facility] [place] [address] CARDIAC CATHETERIZATION Social History Tobacco Use Types Packs/Day Years Used Date Smoking Tobacco: Former Smokeless Tobacco: Never Alcohol Use Standard Drinks/Week Comments Not Currently 0 (1 standard drink = 0.6 oz pur e alcohol) [facility] Utilities Answer Date Recorded In [...] for hypertension and hyperlipidemia who presented to [facility] as a transfer from [facility] as a possible STEMI alert [...] or PND. The patient subsequently presented to [facility] as a walk-in for further [...] on repeat, her JAMIE resolved. Cardiology at [facility] was consulted for transfer; the patient was loaded with aspirin 324 mg and ticagrelor 180 mg, started on a heparin drip, and given nitroglycerin with improvement in chest pain. Upon arrival to [facility], the patient was taken directly to the Counter Top Maker. Two lesions were discovered: one in the prox RCA (felt to almost be a CLOTH PRINTER HELPER but they were able to wire, [...] Data: Admission Labs: Discharge Labs: Recent Labs 11/03/236 11/02/23 0035 11/01/236 11/01/23 0309 10/31/23 0305 WBC 8.3 10.0* 10.4* 8.7 11.5* HGB 13.1 13.8 14.0 12.5 12.6 PLATELET 181 198 197 184 206 Recent Labs 11/03/23 0346 11/02/23 0035 11/01/23 0309 10/31/23 0137 10/30/23 2205 [...] administered prior to arrival in the label operator. Recommended anti-platelet/anti-thrombotic regimen: Continue aspirin 81 [...] and low lung volumes. Findings similar to internal combustion engineer radiograph from CT 10/30/2023. Pending Studies [...] 10:40 AM Izaiah Meyer MD Cardiology at [place] Arrive at: [facility] [address] [phone] Future Orders Complete By Expires Referral to Cardiac Rehab [GPX820 Custom] As directed Process Instructions: If no [...] Santos for admission to Home Health. [address] [facility] [address] (home) Date of : 1940 Inpatient DOCUMENTATION FOR VNA SERVICES (INCLUDING THOSE PATIENTS WITH MEDICARE COVERAGE REQUIRING HOME VNA SERVICES AND/OR HOSPICE SERVICES) PATIENT'S LOCATION: Adin Santos [address] [facility] [address] (home) Cell: Telephone Information: Nailhead Puncher's Name: self In discussion with the attending physician, it is certified that this patient is under their care and that they, or a Nurse Practitioner, Clinical Nurse specialist or Physician Polysomnographic Technologist who is working directly with them, [...] regarding health issues HOME HEALTH CARE AGENCY: [facility] [address] [address] START OF CARE: within 24-48 hours of [...] [address] / [facility] [phone] . All A agencies which cover the [...] MD / Dr. Masood Pierson [address] [place] [address] 11/09/23 1:55 PM arrival for 2:10 PM appointment Communications Tower Climber: Izaiah Meyer MD [address] [place] [address] , 11/24/2023 10:40 AM Your Inpatient Medical Team at [facility] Name(s) of your inpatient provider(s): Attending physician: Rosa Hugo MD Resident physicians: Emile Robles MD; Elmer Tamez MD If you have non-emergent questions, prior to your follow-up visit call: Tuesday-Tuesday between the hours of 8AM-5PM please call the Cardiology Clinic [phone] to speak with a nurse. All other hours please call the Hospital Software Programmer [phone] and ask to speak to the technical fellow on-call. Your Primary Care Provider Rosie Mathews MD [phone] For questions regarding this document or issues relating to this hospitalization on the Medical Service, please contact your inpatient physician through the [facility] Software Programmer . Issues afterhours and on weekends will be handled by the Communications Tower Climber staff on-call. Associated attestation - Rosa Hugo [...] MD / Dr. Masood Pierson [address] [place] [address] 11/09/23 1:55 PM arrival for 2:10 PM appointment Communications Tower Climber: Izaiah Meyer MD [address] [place] [address] , 11/24/2023 10:40 AM Your Inpatient Medical Team at [facility] Name(s) of your inpatient provider(s): Attending physician: Rosa Hugo MD Resident physicians: Emile Robles MD; Elmer Tamez MD If you have non-emergent questions, prior to your follow-up visit call: Tuesday-Tuesday between the hours of 8AM-5PM please call the Cardiology Clinic [phone] to speak with a nurse. All other hours please call the Hospital Software Programmer [phone] and ask to speak to the technical fellow on-call. Your Primary Care Provider Rosie Mathews MD [phone] documented in this encounter Medications at Time [...] Take 5 mg by mouth. 10/03/2023 05/01/20 24 cefPODOXime (Vantin) 200 mg tablet Take 1 [...] for hypertension and hyperlipidemia who presented to [facility] as a transfer from [facility] as a possible STEMI alert [...] ALKPHOS 54 BILITOT 0.5 Recent Labs 11/02/233411/01/2330810/31/23 013 CALCIUM 9.0 8.6 8.6 MAGNESIUM 0.87 0.82 [...] for hypertension and hyperlipidemia who presented to [facility] as a transfer from [facility] as a possible STEMI alert [...] Resident on Cardiology Service Cardiology S1 (Pager [phone]) Note written in conjunction with Claudio Perla [facility] Medical Student, MS3 Associated attestation - [...] Nirmala Webb - 11/01/2023 11:25 AM EDT Embalmer Apprentice Encounter Note Patient Name: Adin Santos : [id number] MR#: [id number] Admit Date: 10/30/2023 5:11 PM Hospital Day 2 days Narrative: Self initiated visit to patient for Spiritual support in a regular unit rounds. Assessment: Patient is in the bathroom at the time of this visit. Not a good time for Jr. Java Developer visit. Intervention and Outcome: An attempted [...] for hypertension and hyperlipidemia who presented to [facility] as a transfer from [facility] as a possible STEMI alert [...] 0057 70.8 kg (156 lb 1.6 oz) 05/13/24 0530 73.9 kg (162 lb 14.7 oz) [...] and low lung volumes. Findings similar to internal combustion engineer radiograph from CT 10/30/2023. Scheduled Medications: [...] for hypertension and hyperlipidemia who presented to [facility] as a transfer from [facility] as a possible STEMI alert [...] Resident on Cardiology Service Cardiology S1 (Pager [phone]) Note written in conjunction with Claudio Perla [facility] Medical Student, MS3 Associated attestation - [...] for hypertension and hyperlipidemia who presented to [facility] as a transfer from [facility] as a possible STEMI alert with acute onset chest pain. Active Problems: Active Hospital Problems Diagnosis Unstable angina Resolved Hospital Problems No resolved problems to display. 24 hr events: - Cath'd yesterday with lesion in the proximal RCA (initially thought it was CLOTH PRINTER HELPER but they were ableto wire, balloon [...] for the past 168 hrs: Weight 10/31/23 05 73.9 kg (162 lb 14.7 [...] 14 CREATININE 0.81 0.85 Recent Labs 10/30/23 220 AST 36* ALT 17 ALKPHOS 54 BILITOT 0.5 Recent Labs 10/31/23 01310/30/232204 CALCIUM 8.6 8.8 MAGNESIUM 0.83 0.86 PHOS 3.2 3.3 Recent Labs 10/31/23304 INR 1.1 PT 12.6* PTT 67* Troponins [...] and low lung volumes. Findings similar to internal combustion engineer radiograph from CT 10/30/2023. TTE (10/30): [...] for hypertension and hyperlipidemia who presented to [facility] as a transfer from [facility] as a possible STEMI alert [...] Resident on Cardiology Service Cardiology S1 (Pager [phone]) Note written in conjunction with Claudio Perla [facility] Medical Student, MS3 Associated attestation - [...] PCP: Rosie Mathews MD PCP phone number: [phone] Date of Admission: 10/30/2023 ( Hospital Day 0 days ) Attending:Rosa Cornejo MD ID: Adin Santos is a 83 y.o. female PMH significant for hypertension and hyperlipidemia who presented to [facility] as a transfer from [facility] as a possible STEMI alert [...] or PND. The patient subsequently presented to [facility] as a walk-in for further [...] on repeat, her JAMIE resolved. Cardiology at [facility] was consulted for transfer; the patient was loaded with aspirin 324 mg and ticagrelor 180 mg, started on a heparin drip, and given nitroglycerin with improvement in chest pain. Upon arrival to [facility], the patient was taken directly to the Counter Top Maker. Two lesions were discovered: one in the prox RCA (felt to almost be a CLOTH PRINTER HELPER but they were able to wire, [...] and low lung volumes. Findings similar to internal combustion engineer radiograph from CT 10/30/2023. Assessment & Plan: Adin Santos is a 83 y.o. female PMH significant for hypertension and hyperlipidemia who presented to [facility] as a transfer from [facility] as a possible STEMI alert [...] information for follow-up [facility], [place] [address] TANESHA BOYCE confirmed with [facility] that they will see the patient within [...] in the room. Electrolytes replaced, see MAR. calibration laboratory technician sites remained C/D/I with baseline ecchymosis unchanged. Pt complained of back pain, lidocaine patch given. Right IV infiltrated during infusion, patient is marked with sharpie, IV removed. See flowsheet for I+O's and safety rounding. Patient is able to make needs known and call capps within reach. PLAN MOVING FORWARD: Monitor Tele, control BP, monitor label operator sites, D/C Planning INDIVIDUALIZED FALL PREVENTION [...] RN - 11/02/2023 11:36 AM EDT Adin Dorene Santos was seen today by Cardiac Rehabilitation [...] above on RA. PT went to label operator today. Left fem site oozed throughout [...] FORWARD: Monitor Tele, control BP, monitor label operator sites, D/C Planning INDIVIDUALIZED FALL PREVENTION [...] 180 days) Any patient receiving care in [place] must abide by [place] law. The hierarchy [...] (i) The agent with financial power of claim attorney or a conservator appointed in accordance [...] has the electric, gas, oil, or water [employer] threatened to shut off services in your [...] toilet seat Home Address confirmed as: [address] [facility] [address] Social & Family Supports: All names listed below confirmed with patient as current and correct Extended Emergency Contact Information Primary Emergency Contact: ChangIris neal Address: [address] [place], [place] [address] [place] [address] Mobile Relation: Child Secondary Emergency Contact: Karen More Address: [address] [facility] [place] Relation: Child Current Care Provided [...] Insurance: N/A Prescription Coverage: Yes Preferred Pharmacy: [id number] - [place], [place] - [address] [place] [address] [place] [address] Status: Patient is a : No Primary Care Provider listed: Masood Pierson MD [phone] Patient/Caregiver Goals of Treatment: home when MR Potential Needs for Transition of Care: home health care Agency Referrals: Not Applicable I have met with the patient to: discuss discharge planning needs. provide the [facility], Office of Care Management letter from the Crystal Lapper pertaining to rehab referrals. provide a letter describing our affiliations within the [facility] and educate about their right to choose where referrals are sent. provide a list of Home Health Agencies / Durable Medical Equipment vendors which serve their preferred geographic area. provided patient with [facility] Star Quality Rating handout. They have requested referrals to: [facility] [address] [place] [address] Note routed to a Netsuite Consultant who will communicate referrals to facilities [...] results. PO hydralazine added for BP control. calibration laboratory technician sites remain C/D/I, ecchymosis unchanged th roughout shift. See flowsheet for I+O's and safety rounding. Patient is able to make needs known and call capps within reach. PLAN MOVING FORWARD: Monitor Tele, control CP and BP, NPO at MD for cath, monitor label operator sites, D/C Planning INDIVIDUALIZED FALL PREVENTION [...] 1:00 PM EST Office Visit Cardiology at [address] [address] Izaiah Meyer MD [facility] [place] [address] 08/09/2024 10:00 AM EST Hospital Encounter Non-[place] [address] Arrived Scheduled Referrals Name Type Priority Associated [...] [facility] Lymph % 15.2 % [facility] Lymphocytes Abs 1.3 0.9 - 3.2 x10(3)/mc L [facility] Monocyte % 16.9 % [facility] Monocyte Abs 1.4(H) 0.3 - 0.9 x10(3)/mc L [facility] Eos % 3.7 % [facility] Eosinophils Abs 0.3 0.0 - 0.4 x10(3)/mc L [facility] Basophil % 0.5 % [facility] [...] HEMATOLOGY ORDERABLE S [facility] [place] [address] * (ABNORMAL) Hemogram (11/03/2023 3:46 AM EDT) [...] MEDICAL CENTER LABORATORY NRBC% auto 0.0 % [facility] NRBC Absolute 0.000 0.000 - 0.000 x10(3)/mc L [facility] Blood 11/03/2023 3:46 AM EDT 11/03/2023 4:11 AM EDT Narrative Resulting Agency Comment Spec In Lab Qamar Gallardo MD HEMATOLOGY ORDERABLE S [facility] [place] [place] [address] * Phosphorus (11/03/2023 3:46 AM EDT) Phosphorus 3.2 2.5 - 4.5 mg/dL [facility] Comment:result rechecked-KS Blood 11/03/2023 3:46 AM EDT 11/03/2023 4:11 AM EDT Narrative Resulting Agency Comment Spec In Lab Rosa Cornejo MD CHEMISTRY ORDERABLE S Performing Organization Address City/[facility]/ZIP Co de Phone Number [facility] [place] [address] * Magnesium (11/03/2023 3:46 AM EDT) Magnesium 0.90 0.69 - 1.07 mmol/L [facility] Blood 11/03/2023 3:46 AM EDT 11/03/2023 4:11 AM EDT Narrative Resulting Agency Comment Spec In Lab Rosa Cornejo MD CHEMISTRY ORDERABLE S Performing Organization Address City/[facility]/ZIP Co de Phone Number [facility] [place] [address] * (ABNORMAL) Basic Metabolic Panel (non-fasting) (11/03/2023 [...] CHEMISTRY ORDERABLE S [facility] [place] [address] * EKG 12 Lead (11/02/2023 12:44 PM EDT) Ventricular rate 83 BPM MUSE SYSTEM Atrial Rate 83 BPM MUSE SYSTEM P-R Interval 216 ms MUSE SYSTEM QRS Duration 90 ms MUSE SYSTEM Q-T Interval 384 ms MUSE SYSTEM QTC Calculated (Bezet) 451 ms MUSE SYSTEM Calculated P [place] 92 degrees MUSE SYSTEM Calculated R [place] -51 degrees MUSE SYSTEM Calculated T [place] -33 degrees MUSE SYSTEM INTERPRETATION Sinus rhythm [...] Hugo MD ECG ORDERABLES Performing Organization Address City/[facility]/ZIP Co de Phone Number MUSE SYSTEM [...] Tamez MD URINE ORDERABLES Performing Organization Address City/[facility]/ZIP Co de Phone Number [facility] [place] [address] * (ABNORMAL) Urinalysis with reflex Culture (11/02/2023 [...] CENTER LABORATORY Leukocytes, Urine Dipstick Small(A) Negative [facility] Appearance, Urine Dipstick Cloudy(A) Clear [facility] Specific [place] Urine Automated >=1.030(A) 1.005 - 1.030 [facility] Color, Urine Dipstick Dark Yellow Yellow [facility] Reflex to Culture Yes [facility] Clean Catch Urine 11/02/2023 11:40 AM EDT 11/02/2023 12:04 PM EDT Narrative Resulting Agency Comment Spec In Lab Rosa Hugo MD URINE ORDERABLES [facility] [place] [place] [address] * Respiratory Panel PCR (11/02/2023 10:15 AM EDT) Respiratory Panel Source DRAWING BOX TENDER Swab [facility] Respiratory Panel PCR Negative Negative [facility] Comment: Respiratory Panels are performed on the [employer], using multiplexed PCR nucleic acid detection. ??Negative results do not preclude respiratory infection and should not be used as the sole basis for diagnosis, treatment or other management decisions. Adenovirus Not Detected Not Detected [facility] Coronavirus HKU1 Not Detected Not Detected [facility] Coronavirus NL63 Not Detected Not Detected [facility] Coronavirus 229E Not Detected Not Detected [facility] Coronavirus OC43 Not Detected Not Detected [facility] SARS-CoV-2 Not Detected Not Detected [facility] Comment: Testing for SARS-CoV-2 (Severe acute respiratory syndrome coronavirus 2) to aid in the diagnosis of COVID-19 is performed using the [place] Respiratory Panel 2.1 ([facility]) as authorized by the FDA issued Emergency Use Authorization (EUA). This panel also tests for multiple other viral and bacterial pathogens. This assay is intended for In-vitro Diagnostic (IVD) use with nasopharyngeal swabs in viral transport media. The assay is performed based on the instructions for use and additional guidance provided by the FDA. Testing is performed in laboratories within the [facility], each of which is certified [...] fact sheets at the following FDA website: https://www.fda.gov/medical-devices/xjqeoellsyu-fdttlpf-5067-cbuvv-46-qisirbdal- use-a slciteqfipjrh-qjlznqz-lqoddwf/qcref-bvhalmvfdfk-klde Human Metapneumovirus Not Detected Not Detected [facility] [...] GEN ERAL ORDERABLES [facility] [place] [address] * XR Chest One View (11/02/2023 2:51 AM EDT) [employer] WORKSTATION ID [id number] RAD Anatomical Region Laterality Modality Chest N/A [...] who have questions please contact the health lawn care technician that requested your imaging first. ? Electronically signed by: Omaira Tran MD, [facility] ([phone]), at 11/02/2023 4:56 AM Narrative 11/02/2023 4:56 [...] patients who have questions please contactthe health lawn care technician that requested your imaging first. Rosa Hugo MD IMG DX ORDERABLES * (ABNORMAL) Differential, Automated (11/02/2023 12:35 AM EDT) Neutrophil % 76.5 % [facility] Neutrophil Absolute 7.69(H) 1.70 - 6.10 x10(3)/mc L [facility] Lymph % 8.3 % [facility] Lymphocytes Abs 0.8(L) 0.9 - 3.2 x10(3)/mc L [facility] Monocyte % 12.9 % [facility] Monocyte Abs 1.3(H) 0.3 - 0.9 x10(3)/mc L [facility] Eos % 1.4 % [facility] Eosinophils Abs 0.1 0.0 - 0.4 x10(3)/mc L [facility] Basophil % 0.4 % [facility] Baso Absolute 0.0 0.0 - 0.1 x10(3)/[facility]AT[facility] Immature Gran % 0.50 % [facility] Comment: Immature granulocytes(IG's)percentage and absolute count will include metamyelocytes, myelocytes, and promyelocytes. Blood smears from CBCs yielding IG's will be scanned manually for concordance. If this scan disagrees with the automated IG or if promyelocytes are noted, a manual differential will be performed. Immature Gran Absolute 0.05(H) 0.00 - 0.04 x10(3)/[facility] Blood 11/02/2023 12:3 5 AM EDT 11/02/2023 12:43 AM EDT Narrative Resulting Agency Comment Spec In Lab Qamar Gallardo MD HEMATOLOGY ORDERABLE S Performing Organization Address City/State/[facility] Co de Phone Number [facility] [place] [address] * (ABNORMAL) Hemogram (11/02/2023 12:35 AM EDT) White Blood Cell 10.0(H) 4.0 - 9.5 x10(3)/[facility] LABORAT[facility] Red Blood Cell 4.06 4.00 - 5.21 x10(6)/[facility] Hemoglobin 13.8 11.7 - 15.5 g/dL [facility] Hematocrit 39.8 35.7 - 45.8 % [facility] Mean Cell Volume 98.0(H) 82.6 - 94.4 fL [facility] Mean Cell Hemoglobin 34.0(H) 27.1 - 32.0 pg [facility] Mean Cell Hemoglobin Concentration 34.7 31.7 - 35.0 g/dL [facility] Platelet 198 145 - 357 x10(3)/[facility] RDW Standard Deviation 52.1(H) 37.0 - 46.0 fL [facility] RDW coefficient of variation 14.3(H) 11.5 - 14.1 % [facility] Mean Platelet Volume 11.4 7.6 - 12.9 fL [facility] NRBC% auto 0.0 % [facility] NRBC Absolute 0.000 0.000 - 0.000 x10(3)/mc L [facility] Blood 11/02/2023 12:3 5 AM EDT 11/02/2023 12:43 AM EDT Narrative Resulting Agency Comment Spec In Lab Qamar Gallardo MD HEMATOLOGY ORDERABLE S [facility] [place] [address] * (ABNORMAL) Phosphorus (11/02/2023 12:35 AM EDT) Phosphorus 1.6(L) 2.5 - 4.5 mg/dL [facility] Blood 11/02/2023 12:3 5 AM EDT 11/02/2023 12:43 AM EDT Narrative Resulting Agency Comment Spec In Lab Rosa Cornejo MD CHEMISTRY ORDERABLE S Performing Organization Address City/[facility]/ZIP Co de Phone Number [facility] [place] [address] * Magnesium (11/02/2023 12:35 AM EDT) Magnesium 0.87 0.69 - 1.07 mmol/L [facility] Blood 11/02/2023 12:3 5 AM EDT 11/02/2023 12:43 AM EDT Narrative Resulting Agency Comment Spec In Lab Rosa Cornejo MD CHEMISTRY ORDERABLE S [facility] [place] [address] * Basic Metabolic Panel (non-fasting) (11/02/2023 12:35 [...] CHEMISTRY ORDERABLE S [facility] [place] [place] [address] * Blood culture (11/02/2023 12:35 AM EDT) Blood Culture No growth at 5 days. [facility] Blood 11/02/2023 12:3 5 AM EDT 11/02/2023 1:55 AM EDT Comment:#2 site ukn Narrative Resulting Agency Comment Spec In Lab Rosa Hugo MD MICROBIOLOGY - BLO OD ORDERABLES Performing Organization Address City/[facility]/ZIP Co de Phone Number [facility] [place] [address] * Blood culture (11/02/2023 12:15 AM EDT) Blood Culture No growth at 5 days. [facility] Blood 11/02/2023 12:1 5 AM EDT 11/02/2023 1:54 AM EDT Comment:#1site unk Narrative Resulting Agency Comment Spec In Lab Rosa Hugo MD MICROBIOLOGY - BLO OD ORDERABLES Performing Organization Address City/[facility]/ZIP Co de Phone Number [facility] [place] [address] * EKG 12 Lead (11/01/2023 10:10 PM EDT) Ventricular rate 139 BPM MUSE SYSTEM Atrial Rate 139 BPM MUSE SYSTEM P-R Interval 168 ms MUSE SYSTEM QRS Duration 84 ms MUSE SYSTEM Q-T Interval 286 ms MUSE SYSTEM QTC Calculated (Bezet) 435 ms MUSE SYSTEM Calculated R [place] -59 degrees MUSE SYSTEM Calculated T [place] -27 degrees MUSE SYSTEM INTERPRETATION Mid-RP tachycardia, consider sinus tachycardia or SVT Left axis deviation Moderate voltage criteria for LVH, may be normal variant ( R in aVL , [place] product ) Inferior infarct (cited on or before 01-NOV-2023) Anterolateral infarct (cited on or before 01-NOV-2023) Abnormal ECG When compared with ECG of 01-NOV-2023 15:22, Vent. rate Although rate has increased Serial changes of Anterior infarct Present I personally reviewed the tracing and edited the fellows interpretation Confirmed by fellow MD Bowen Ashley ([id number]) on 11/04/2023 7:57:50 AM Confirmed by MD Carrillo Danette ([id number]) on 11/04/2023 4:32:03 PM MUSE SYSTEM 11/01/2023 10:1 0 PM EDT 11/04/2023 4:32 PM EDT Rosa oCrnejo MD ECG ORDERABLES MUSE SYSTEM * (ABNORMAL) [...] Mean Cell Volume 100.0(H) 82.6 - 94.4 [facility] LABORATORY Mean Cell Hemoglobin 34.1(H) 27.1 - 32.0 pg [facility] Mean Cell Hemoglobin Concentration 34.1 31.7 - 35.0 g/dL [facility] Platelet 197 145 - 357 x10(3)/[facility] LABORATORY RDW Standard Deviation 54.0(H) 37.0 - 46.0 [facility] LABORATORY RDW coefficient of variation 14.6(H) 11.5 - 14.1 % [facility] Mean Platelet Volume 11.2 7.6 - 12.9 [facility] LABORATORY NRBC% auto 0.0 % [facility]ORATORY NRBC Absolute 0.000 0.000 - 0.000 x10(3)/ L [facility] Blood 11/01/2023 10:0 6 PM EDT 11/01/2023 10:22 PM EDT Narrative Resulting Agency Comment Spec In Lab Rosa Hugo MD HEMATOLOGY ORDERAB LES Performing Organization Address [facility]/ZIP Co de Phone Number [facility] [place] [address] * POCT Glucose (11/01/2023 5:59 PM EDT) Glucose, POC 104 65 - 199 mg/dL [facility] Comment: Supplemental ranges: <140 mg/dL before meals <180 mg/dL all other times of the day Blood 11/01/2023 5:59 PM EDT 11/01/2023 5:59 PM EDT Rosa Hugo MD POINT OF CARE TEST ORDERABLES Performing Organization Address [facility] Co de Phone Number [facility] [place] [address] * POCT Glucose (11/01/2023 5:35 PM EDT) Glucose, POC 85 65 - 199 mg/dL [facility] Comment: Supplemental ranges: <140 mg/dL before meals <180 mg/dL all other times of the day Blood 11/01/2023 5:35 PM EDT 11/01/2023 5:35 PM EDT Rosa Hugo MD POINT OF CARE TEST ORDERABLES Performing Organization Address [facility] Co de Phone Number [facility] [place] [address] * EKG 12 Lead (11/01/2023 3:22 PM EDT) Ventricular rate 59 BPM MUSE SYSTEM Atrial Rate 59 BPM MUSE SYSTEM P-R Interval 220 ms MUSE SYSTEM QRS Duration 94 ms MUSE SYSTEM Q-T Interval 428 ms MUSE SYSTEM QTC Calculated (Bezet) 423 ms MUSE SYSTEM Calculated P [place] 76 degrees MUSE SYSTEM Calculated R [place] -50 degrees MUSE SYSTEM Calculated T [place] -59 degrees MUSE SYSTEM INTERPRETATION Sinus bradycardia with sinus arrhythmia with 1st degree A-V block Left anterior fascicular block Moderate voltage criteria for LVH, may be normal variant ( R in aVL , [place] product ) Cannot rule out Inferior infarct [...] PM EDT ?[facility] ? Cardiac Catheterization/Intervention Report ? Patient Name: Joleen Adin M. ? Procedure Date: 11/01/2023 ? A #: [id number] ? Primary Physician: Rosa Dewey I ? Case #: [id number] ? File Name: [id number] ? Catheterization Order Number: [id number] ? [facility] ? Final Report [place], [place] ? Patient Name: ? Adin M. Goguen ?ID#: ?[id number] ? : ?1940 ? Procedure Date: ? [...] was Urgent. The indication for ?the label operator visit is ACS greater than 24 [...] ??A premounted ? 3.50 x 15 mm [place] (RADHA) was deployed with a maximum ? [...] A premounted 3.50 x 15 mm [place] (RADHA) was deployed ? with a maximum [...] administered prior to arrival in the label operator. ?Recommended anti-platelet/anti-thrombotic regimen: ?Continue aspirin 81 mg daily for indefinitely. ?Continue clopidogrel 75 mg daily for 12 months then stop. ?These recommendations are made at the time of the intervention. Patient ?and provider preferences or a changing clinical situation may require ?modification of this regimen. Consult [facility] Interventional Cardiology for ?questions. ?The 1 year [...] M.D. ? Electronically Signed by: Rosa Dewey MKatherine. ? Report Finalized: 11/02/2023 ??16:51 ? Report Last Ammended: 12/12/2023 ??10:28 ? Procedure Note Rosa Dewey MD - 12/12/2023 [facility] Cardiac Catheterization/Intervention Report Patient Name: Adin Santos Procedure Date: 11/01/2023 A #: [id number] Primary Physician: Rosa Dewey I Case #: [id number] File Name: [id number] Catheterization Order Number: [id number] [facility] FinalReport [place], [place] Patient Name: Adin Santos ID#:[id number] :1940 Procedure Date: November 01, 2023 Case [...] procedure was Urgent. The indicationfor the label operator visit is ACS greater than 24 [...] atmospheres. Apremounted 3.50 x 15 mm [place] (RADHA) was deployed with amaximum inflation pressure [...] The lesion was predilated with a 3.00mm [id number] MM balloon with a maximum inflation pressure of 14atmospheres. A premounted 3.50 x 15 mm [place] (RADHA) wasdeployed with a maximum inflation pressure [...] administered prior to arrival in the label operator. Recommended anti-platelet/anti-thrombotic regimen: Continue aspirin 81 mg daily for indefinitely. Continue clopidogrel 75 mg daily for 12 months then stop. These recommendations are made at the time of the intervention.Patient and provider preferences or a changing clinical situation mayrequire modification of this regimen. Consult [facility] Interventional Cardiologyfor questions. The 1 year bleeding [...] 12/12/2023 10:28 Rosa Cornejo MD CARDIAC CATH DENIA CANALES * POCT Glucose (11/01/2023 7:06 AM EDT) Pathologist [facility] Glucose, POC 93 65 - 199 mg/dL [facility] Comment: Supplemental ranges: <140 mg/dL before meals <180 mg/dL all other times of the day Blood 11/01/2023 7:06 AM EDT 11/01/2023 7:06 AM EDT Jean Laboy MD POINT OF CARE TEST O RDERABLES [facility] [place] [address] * (ABNORMAL) Differential, Automated (11/01/2023 3:09 AM EDT) Neutrophil % 63.9 % [facility] Neutrophil Absolute 5.54 1.70 - 6.10 x10(3)/ L [facility] Lymph % 20.0 % [facility] Lymphocytes Abs 1.7 0.9 - 3.2 x10(3)/ L [facility] Monocyte % 11.9 % [facility] Monocyte Abs 1.0(H) 0.3 - 0.9 x10(3)/ L [facility] Eos % 3.2 % [facility] Eosinophils Abs 0.3 0.0 - 0.4 x10(3)/[facility] LABORATORY Basophil % 0.5 % [facility] Baso Absolute 0.0 0.0 - 0.1 x10(3)/[facility] LABORATORY Immature Gran % 0.50 % [facility]ORTER [...] HEMATOLOGY ORDERABLE S [facility] [place] [address] * (ABNORMAL) Hemogram (11/01/2023 3:09 AM EDT) [facility] White Blood Cell 8.7 4.0 - 9.5 x10(3)/ L [facility] Red Blood Cell 3.72(L) 4.00 - 5.21 x10(6)/ L [facility] Hemoglobin 12.5 [...] MEDICAL CENTER LABORATORY NRBC% auto 0.0 % [facility] NRBC Absolute 0.000 0.000 - 0.000 x10(3)/mc L [facility] Blood 11/01/2023 3:09 AM EDT 11/01/2023 3:29 AM EDT Narrative Resulting Agency Comment Spec In Lab Qamar Gallardo MD HEMATOLOGY ORDERABLE S Performing Organization Address City/[facility]/ZIP Co de Phone Number [facility] [place] [address] * Phosphorus (11/01/2023 3:09 AM EDT) Phosphorus 2.5 2.5 - 4.5 mg/dL [facility] Blood 11/01/2023 3:09 AM EDT 11/01/2023 3:29 AM EDT Narrative Resulting Agency Comment Spec In Lab Rosa Cornejo MD CHEMISTRY ORDERABLE S [facility] [place] [address] * Magnesium (11/01/2023 3:09 AM EDT) Magnesium 0.82 0.69 - 1.07 mmol/L [facility] Blood 11/01/2023 3:09 AM EDT 11/01/2023 3:29 AM EDT Narrative Resulting Agency Comment Spec In Lab Rosa Cornejo MD CHEMISTRY ORDERABLE S [facility] [place] [address] * (ABNORMAL) Basic Metabolic Panel (non-fasting) (11/01/2023 [...] CHEMISTRY ORDERABLE S [facility] [place] [address] * (ABNORMAL) Troponin (10/31/2023 2:46 PM EDT) [...] can be found in the [facility] Test Catalog Troponin - [facility] Test Catalog Reference: Fourth Protection Definition of Myocardial Infarction. Journal of the [place] [employer] 2018;72:9762-4221 Blood 10/31/2023 2:46 PM EDT 10/31/2023 2:55 PM EDT Narrative Resulting Agency Comment Spec In Lab Jean Laboy MD CHEMISTRY ORDERABLES Performing Organization Address City/[facility]/ZIP Co de Phone Number [facility] [place] [address] * EKG 12 Lead (10/31/2023 1:07 PM EDT) Ventricular rate 54 BPM MUSE SYSTEM Atrial Rate 54 BPM MUSE SYSTEM P-R Interval 218 ms MUSE SYSTEM QRS Duration 92 ms MUSE SYSTEM Q-T Interval 540 ms MUSE SYSTEM QTC Calculated (Bezet) 512 ms MUSE SYSTEM Calculated P [place] 85 degrees MUSE SYSTEM Calculated R [place] -44 degrees MUSE SYSTEM Calculated T [place] -69 degrees MUSE SYSTEM INTERPRETATION Sinus bradycardia [...] Cornejo MD ECG ORDERABLES Performing Organization Address City/[facility]/ZIP Co de Phone Number MUSE SYSTEM * (ABNORMAL) Troponin (10/31/2023 11:37 AM EDT) Troponin-T, High Sensitivity 580(H) <=14 ng/L [facility] [...] can be found in the [facility] Test Catalog Troponin - [facility] Test Catalog Reference: Fourth Protection Definition of Myocardial Infarction. Journal of the [place] College [employer] 2018;72:8436-4855 Blood 10/31/2023 11:3 7 AM EDT 10/31/2023 11:50 AM EDT Narrative Resulting Agency Comment Spec In Lab Rosa Cornejo MD CHEMISTRY ORDERABLE S Performing Organization Address City/State/[facility] Co de Phone Number [facility] [place] [address] * ECHO COMPLETE (10/31/2023 8:52 AM EDT) Anatomical Region Laterality Modality Cardiac Other 10/31/2023 7:57 AM EDT Narrative 10/31/2023 9:45 AM [place]T [address] [place] [address] ? Echocardiogram Report Name: ADIN SANTOS ? Study Date: 10/31/2023 07:57 AMBP: 106/76 mmHg ? Patient Location: [address] : 1940 ? Height: 163 cm ? Account: [id number] Age: 83 yrs ? Weight: 76 kg Gender: Female ?BSA: 1.8 m2 Ordering Physician: ROSA DEWEY Referring Physician: OMAIRA GIRON Performed By: HAFSA Carmichael Reason For Study: STEMI Interpreting Fellow: Raymond Warren. Exam Location: [facility]. Interpretation Summary -The left ventricle is of [...] is no prior echocardiogram for comparison. Procedure Complete-39042. Satisfactory quality. There is sinus bradycardia. Left [...] Note Edgard Wang MD - 10/31/2023 1 [place] [address] Echocardiogram Report Name: ADIN SANTOS Study Date: 407:57 AMBP: 106/76 mmHg Patient Location: [address] : 1940 Height: 163 cm Account: [id number] Age: 83 yrs Weight: 76 kg Gender: Female BSA: 1.8 m2 Ordering Physician: ROSA DEWEY Referring Physician: OMAIRA GIRON Performed By: HAFSA Carmichael Reason For Study: STEMI Interpreting Fellow: Raymond Warren. Exam Location: [facility]. Interpretation Summary -The left ventricle is of [...] is no prior echocardiogram for comparison. Procedure Complete-34640. Satisfactory quality. There is sinus bradycardia. Left [...] can be found in the [facility] Test Catalog Troponin - [facility] Test Catalog Reference: Fourth Protection Definition of Myocardial Infarction. Journal of the [place] College [employer] 2018;72:6763-5204 Blood 10/31/2023 8:51 AM EDT 10/31/2023 9:12 AM EDT Narrative Resulting Agency Comment Spec In Lab Rosa Cornejo MD CHEMISTRY ORDERABLE S Performing Organization Address City/State/[facility] Co de Phone Number [facility] [place] [address] * CARDIAC CATHETERIZATION (10/31/2023 8:10 AM EDT) Anatomical Region Laterality Modality Other Narrative 11/07/2023 9:42 AM EDT ?[facility] ? Cardiac Catheterization/Intervention Report ? Patient Name: Adin Santos. ? Procedure Date: 10/30/2023 ? A #: [id number] ? Primary Physician: Rosa Dewey I ? Case #: [id number] ? File Name: [id number] ? Catheterization Order Number: [id number] ? [facility] ? Final Report [place], [place] ? Patient Name: ? Adin M. Goguen ?ID#: ?[id number] ? : ?1940 ? Procedure Date: ? October 30, 2023 ? Case #: ? [id number] ? Room: ? 5 ? Case Physician: [...] was Emergent. The indication for ?the label operator visit is ACS less than or [...] ? A premounted 4.00 x 38 mm [place] (RADHA) was deployed ? with a maximum [...] administered prior to arrival in the label operator. ?Recommended anti-platelet/anti-thrombotic regimen: ?Continue aspirin 81 mg daily for 12 months then stop. ?Continue clopidogrel 75 mg daily for indefinitely. ?These recommendations are made at the time of the intervention. Patient ?and provider preferences or a changing clinical situation may require ?modification of this regimen. Consult [facility] Interventional Cardiology for ?questions. ? Conclusions: ?* [...] - 12/05/2023 [facility] Cardiac Catheterization/Intervention Report Patient Name: Adin Santos Procedure Date: 10/30/2023 A #: [id number] Primary Physician: Rosa Dewey I Case #: [id number] File Name: [id number] Catheterization Order Number: [id number] [facility] FinalReport [place], [place] Patient Name: Adin Santos ID#:[id number] :1940 Procedure Date: October 30, 2023 Case [...] was designated as ASA Class III. The [facility] clinical frailtyscale is 5: Mildly Frail. Diagnostic Tests: Electrocardiography: EKG was assessed by ECG. EKG was Abnormal. EKG showed STDeviation >= 0.5 mm, other abnormality and dynamic EKG changes. Medications Prior to Procedure: Aspirin, Angiotensin II Receptor Rodrick, Beta Rodrick andStatin. Indications for Diagnostic Cath: The priority of the diagnostic procedure was Emergent. Theindication for the label operator visit is ACS less than or [...] The priority for the procedure was Emergent.[facility] the [facility]I-Immediate PCI [...] 16atmospheres. A premounted 4.00 x 38 mm [place] (RADHA) wasdeployed with a maximum inflation pressure [...] administered prior to arrival in the label operator. Recommended anti-platelet/anti-thrombotic regimen: Continue aspirin 81 mg daily for 12 months then stop. Continue clopidogrel 75 mg daily for indefinitely. These recommendations are made at the time of the intervention.Patient and provider preferences or a changing clinical situation mayrequire modification of this regimen. Consult [facility] Interventional Cardiologyfor questions. Conclusions: * Two vessel [...] * (ABNORMAL) Troponin (10/31/2023 4:21 AM EDT) [facility] Troponin-T, High Sensitivity 457(H) <=14 [...] can be found in the [facility] Test Catalog Troponin - [facility] Test Catalog Reference: Fourth Protection Definition of Myocardial Infarction. Journal of the [place] College [employer] 2018;72:2424-0781 Blood 10/31/2023 4:21 AM EDT 10/31/2023 4:30 AM EDT Narrative Resulting Agency Comment Spec In Lab Rosa Cornejo MD CHEMISTRY ORDERABLE S [facility] [place] [address] * (ABNORMAL) Differential, Automated (10/31/2023 3:05 AM EDT) Neutrophil % 71.7 % [facility] Neutrophil Absolute 8.21(H) 1.70 - 6.10 x10(3)/mc L [facility] Lymph % 16.9 % [facility] Lymphocytes Abs 1.9 0.9 - 3.2 x10(3)/mc L [facility] Monocyte % 9.4 % [facility] Monocyte Abs 1.1(H) 0.3 - 0.9 x10(3)/mc L [facility] Eos % 1.3 % [facility] Eosinophils Abs 0.2 0.0 - 0.4 x10(3)/ L [facility] Basophil % 0.4 % [facility] [...] Immature Gran Absolute 0.04 0.00 - 0.04 x10(3)/[facility] LABORATORY Blood 10/31/2023 3:05 AM EDT 10/31/2023 3:13 AM EDT Narrative Resulting Agency Comment Spec In Lab Qamar Gallardo MD HEMATOLOGY ORDERABLE S [facility] [place] [address] * (ABNORMAL) Hemogram (10/31/2023 3:05 AM EDT) [...] MEDICAL CENTER LABORATORY NRBC% auto 0.0 % [facility] NRBC Absolute 0.000 0.000 - 0.000 x10(3)/mc L [facility] Blood 10/31/2023 3:05 AM EDT 10/31/2023 3:13 AM EDT Narrative Resulting Agency Comment Spec In Lab Qamar Gallardo MD HEMATOLOGY ORDERABLE S Performing Organization Address [facility] Co de Phone Number [facility] [place] [address] * (ABNORMAL) APTT (10/31/2023 3:05 AM EDT) [...] MD HEMATOLOGY ORDERABL ES Performing Organization Address [facility] Co de Phone Number [facility] [place] [address] * (ABNORMAL) Prothrombin Time (10/31/2023 3:05 AM EDT) Prothrombin Time 12.6(H) 9.4 - 12.5 sec [facility] International Normalization Ratio 1.1 [facility] [...] HEMATOLOGY ORDERABL ES [facility] [place] [address] * (ABNORMAL) Differential, Automated (10/31/2023 1:37 AM EDT) Neutrophil % 71.1 % [facility] Neutrophil Absolute 7.53(H) 1.70 - 6.10 x10(3)/mc L [facility] Lymph % 18.0 % [facility] Lymphocytes Abs 1.9 0.9 - 3.2 x10(3)/mc L [facility] Monocyte % 8.7 % [facility] Monocyte Abs 0.9 0.3 - 0.9 x10(3)/mc L [facility] Eos % 1.6 % [facility] Eosinophils Abs 0.2 0.0 - 0.4 x10(3)/mc L [facility] Basophil % 0.4 % [facility] [...] HEMATOLOGY ORDERABLE S [facility] [place] [address] * (ABNORMAL) Hemogram (10/31/2023 1:37 AM EDT) White Blood Cell 10.6(H) 4.0 - 9.5 x10(3)/mc L [facility] Red Blood Cell 3.78(L) 4.00 - 5.21 x10(6)/ L [facility] Hemoglobin 13.0 [...] Platelet 204 145 - 357 x10(3)/ L [facility] RDW Standard Deviation 54.3(H) 37.0 - 46.0 fL [facility] RDW coefficient of variation 14.6(H) 11.5 - 14.1 % [facility] Mean Platelet Volume 11.1 7.6 - 12.9 fL [facility] NRBC% auto 0.0 % [facility] NRBC Absolute 0.000 0.000 - 0.000 x10(3)/mc L [facility] Blood 10/31/2023 1:37 AM EDT 10/31/2023 1:46 AM EDT Narrative Resulting Agency Comment Spec In Lab Qamar Gallardo MD HEMATOLOGY ORDERABLE S Performing Organization Address [facility] Co de Phone Number [facility] [place] [address] * Phosphorus (10/31/2023 1:37 AM EDT) Phosphorus 3.2 2.5 - 4.5 mg/dL [facility] Blood 10/31/2023 1:37 AM EDT 10/31/2023 1:46 AM EDT Narrative Resulting Agency Comment Spec In Lab Rosa Cornejo MD CHEMISTRY ORDERABLE S Performing Organization Address [facility] Co de Phone Number [facility] [place] [address] * Magnesium (10/31/2023 1:37 AM EDT) Magnesium 0.83 0.69 - 1.07 mmol/L [facility] Blood 10/31/2023 1:37 AM EDT 10/31/2023 1:46 AM EDT Narrative Resulting Agency Comment Spec In Lab Rosa Cornejo MD CHEMISTRY ORDERABLE S Performing Organization Address [facility] Co de Phone Number [facility] [place] [address] * Basic Metabolic Panel (non-fasting) (10/31/2023 1:37 AM EDT) Glucose 114 65 - 199 mg/dL [facility] Comment:Diabetes: >=200 mg/d L plus symptoms Blood Urea Nitrogen 13 8 - 18 mg/dL [facility] Creatinine 0.81 0.70 - 1.20 mg/dL [facility] Sodium 140 135 - 145 mmol/L [facility] Potassium 3.9 3.5 - [...] CHEMISTRY ORDERABLE S [facility] [place] [address] * (ABNORMAL) Troponin (10/31/2023 1:37 AM EDT) [...] can be found in the [facility] Test Catalog Troponin - [facility] Test Catalog Reference: Fourth Protection Definition of Myocardial Infarction. Journal of the [place] [employer] 2018;72:6931-1302 Blood 10/31/2023 1:37 AM EDT 10/31/2023 1:46 AM EDT Narrative Resulting Agency Comment Spec In Lab Rosa Cornejo MD CHEMISTRY ORDERABLE S [facility] [place] [address] * EKG 12 Lead (10/31/2023 1:20 AM EDT) Ventricular rate 52 BPM MUSE SYSTEM Atrial Rate 52 BPM MUSE SYSTEM P-R Interval 224 ms MUSE SYSTEM QRS Duration 108 ms MUSE SYSTEM Q-T Interval 544 ms MUSE SYSTEM QTC Calculated (Bezet) 505 ms MUSE SYSTEM Calculated P [place] 90 degrees MUSE SYSTEM Calculated R [place] -57 degrees MUSE SYSTEM Calculated T [place] -63 degrees MUSE SYSTEM INTERPRETATION Sinus bradycardia [...] was found Confirmed by Butch Soto MD ([id number]) on 11/01/2023 8:58:03 PM MUSE SYSTEM 10/31/2023 1:20 AM EDT 11/01/2023 8:58 PM EDT Rosa Cornejo MD ECG ORDERABLES Performing Organization Address [facility] de Phone Number MUSE SYSTEM * EKG 12 Lead (10/30/2023 10:40 PM EDT) Ventricular rate 55 BPM MUSE SYSTEM Atrial Rate 55 BPM MUSE SYSTEM P-R Interval 232 ms MUSE SYSTEM QRS Duration 102 ms MUSE SYSTEM Q-T Interval 520 ms MUSE SYSTEM QTC Calculated (Bezet) 497 ms MUSE SYSTEM Calculated [place] 75 degrees MUSE SYSTEM Calculated R [place] -53 degrees MUSE SYSTEM Calculated T [place] -57 degrees MUSE SYSTEM INTERPRETATION Sinus bradycardia [...] Cornejo MD ECG ORDERABLES Performing Organization Address [facility] de Phone Number MUSE SYSTEM * XR Chest One View (10/30/2023 10:10 PM EDT) WORKSTATION ID [id number] RAD Anatomical Region Laterality Modality Chest N/A Digital Radiogra phy Impressions 10/30/2023 10:32 PM EDT 1. ??Examination limited by low lung volumes. 2. ??Findings suggesting pulmonary vascular congestion with possible mild interstitial edema. 3. ??Known ascending aortic aneurysm, as seen on recent CT. 4. ??Nonspecific widening mediastinum. This can be secondary to magnification from portable technique and low lung volumes. Findings similar to internal combustion engineer radiograph from CT 10/30/2023. Thank you for letting us participate in the care of this patient. ??If you are a health care provider and have any questions regarding this report, please contact the number below. ??For patients who have questions please contact the health lawn care technician that requested your imaging first. ? Electronically signed by: Wilson Mccartney MD, [facility] ([phone]), at 10/30/2023 10:32 PM Narrative 10/30/2023 10:32 [...] and low lung volumes. Findings similar to internal combustion engineer radiograph from CT 10/30/2023. Thank you for letting us participate in the care of this patient. If youare a health care provider and have any questions regarding this report,please contact the number below. For patients who have questions please contactthe health lawn care technician that requested your imaging first. Electronically signed by: Wilson Mccartney MD, [facility]([phone]), at 10/30/2023 10:32 PM Rosa Cornejo MD IMG DX ORDERABLES * Green Tube HOLD (10/30/2023 10:05 PM EDT) Green Hold Sample in lab. [facility] Blood Venous Draw / Unknown 10/30/2023 10:05 PM EDT 10/30/2023 10:13 PM EDT Qamar Gallardo MD CHEMISTRY ORDERABLES Performing Organization Address City/State/[facility] Co de Phone Number [facility] [place] [address] * (ABNORMAL) Differential, Automated (10/30/2023 10:05 PM EDT) Neutrophil % 76.6 % [facility] Neutrophil Absolute 6.94(H) 1.70 - 6.10 x10(3)/mc L [facility] Lymph % 15.4 % [facility] Lymphocytes Abs 1.4 0.9 - 3.2 x10(3)/mc L [facility] Monocyte % 6.1 % [facility] Monocyte Abs 0.6 0.3 - 0.9 x10(3)/[facility] Eos % 1.1 % [facility] Eosinophils Abs 0.1 0.0 - 0.4 x10(3)/[facility] Basophil % 0.6 % [facility] Baso Absolute 0.0 0.0 - 0.1 x10(3)/[facility] Immature Gran % 0.20 % [facility] Comment: Immature granulocytes(IG's)percentage and absolute count will include metamyelocytes, myelocytes, and promyelocytes. Blood smears from CBCs yielding IG's will be scanned manually for concordance. If this scan disagrees with the automated IG or if promyelocytes are noted, a manual differential will be performed. Immature Gran Absolute 0.02 0.00 - 0.04 x10(3)/[facility] Blood 10/30/2023 10:0 5 PM EDT 10/30/2023 10:12 PM EDT Narrative Resulting Agency Comment Spec In Lab Qamar Gallardo MD HEMATOLOGY ORDERABLE S [facility] [place] [address] * (ABNORMAL) Hemogram (10/30/2023 10:05 PM EDT) White Blood Cell 9.0 4.0 - 9.5 x10(3)/[facility] Red Blood Cell 3.96(L) 4.00 - 5.21 x10(6)/[facility] Hemoglobin 13.3 11.7 - 15.5 g/dL [...] [facility] NRBC% auto 0.0 % [facility] NRBC Absolute 0.000 0.000 - 0.000 x10(3)/mc L [facility] Blood 10/30/2023 10:0 5 PM EDT 10/30/2023 10:12 PM EDT Narrative Resulting Agency Comment Spec In Lab Qamar Gallardo MD HEMATOLOGY ORDERABLE S [facility] [place] [id number] * Hemoglobin A1c (10/30/2023 10:05 PM EDT) [...] Mellitus, Diabetes Care 2013; 36: Suppl. 1, R14-37 Estimated Average Glucose See note mg/dL [facility] Comment: Estimated Average Glucose not appropriate for patients over 70 years of age. Blood 10/30/2023 10:0 5 PM EDT 10/30/2023 10:12 PM EDT Narrative Resulting Agency Comment Spec In Lab Rosa Cornejo MD CHEMISTRY ORDERABLE S [facility] [place] [address] * Lipid Panel (Reflex Direct LDL) (10/30/2023 10:05 PM EDT) Cholesterol, Total 218 mg/dL [facility] Comment: Desirable: ? <200 mg/dL Borderline High: 200-239 mg/dL Higher: ?>yw=268 mg/dL Triglyceride 46 mg/dL [facility] Comment: Normal: ?<150 mg/dL Borderline High: 150-199 mg/dL High: ?200-499 mg/dL Very High: ? >xz=880 mg/dL HDL Cholesterol 64 mg/dL [facility] Comment: Females: High Risk: <50 mg/dL Males: High Risk: <40 mg/dL LDL Cholesterol 145 mg/dL [facility] Comment: Desirable: ? <100 mg/dL Above Desirable: 100-129 mg/dL Borderline High: 130-159 mg/dL High: ?160-189 mg/dL Very High: ? >jy=792 mg/dL Lipid Interpretation See Note [facility] [...] individuals with atherosclerotic cardiovascular disease (ASCVD)or LDL >qk=860 mg/dL, use a high-intensity statin (40-80 mg [...] CHEMISTRY ORDERABLE S [facility] [place] [address] * TSH [place] (10/30/2023 10:05 PM EDT) Thyroid Stimulating Hormone 3.35 0.27 - 4.20 mcIU/mL [facility] Comment: Reference Interval (mcIU/mL): Females: ??First Trimester: 0.23-3.88 ??Second Trimester: 0.22-3.90 ??Third Trimester: 0.44-4.66 Blood 10/30/2023 10:0 5 PM EDT 10/30/2023 10:12 PM EDT Narrative Resulting Agency Comment Spec In Lab Rosa Cornejo MD CHEMISTRY ORDERABLE S Performing Organization Address City/[facility]/ZIP Co de Phone Number [facility] [place] [address] * pro-Brain Natriuretic Peptide (10/30/2023 10:05 PM EDT) NT-proBNP 375 <=449 pg/mL [facility] Blood 10/30/2023 10:0 5 PM EDT 10/30/2023 10:12 PM EDT Narrative Resulting Agency Comment Spec In Lab Rosa Cornejo MD CHEMISTRY ORDERABLE S Performing Organization Address City/[facility]/ZIP Co de Phone Number [facility] [place] [address] * (ABNORMAL) Comprehensive metabolic panel (non-fasting) (10/30/2023 [...] CHEMISTRY ORDERABLE S [facility] [place] [place] [address] * Phosphorus (10/30/2023 10:05 PM EDT) Phosphorus 3.3 2.5 - 4.5 mg/dL [facility] Blood 10/30/2023 10:0 5 PM EDT 10/30/2023 10:12 PM EDT Narrative Resulting Agency Comment Spec In Lab Rosa Cornejo MD CHEMISTRY ORDERABLE S Performing Organization Address City/[facility]/ZIP Co de Phone Number [facility] [place] [address] * Magnesium (10/30/2023 10:05 PM EDT) Magnesium 0.86 0.69 - 1.07 mmol/L [facility] Blood 10/30/2023 10:0 5 PM EDT 10/30/2023 10:12 PM EDT Narrative Resulting Agency Comment Spec In Lab Rosa Cornejo MD CHEMISTRY ORDERABLE S Performing Organization Address [facility]/ZIP Co de Phone Number [facility] [place] [address] * (ABNORMAL) Troponin (10/30/2023 10:05 PM EDT) [...] can be found in the [facility] Test Catalog Troponin - [facility] Test Catalog Reference: Fourth Protection Definition of Myocardial Infarction. Journal of the [employer] 2018;72:5255-3577 Blood 10/30/2023 10:0 5 PM EDT 10/30/2023 10:12 PM EDT Narrative Resulting Agency Comment Spec In Lab Rosa Cornejo MD CHEMISTRY ORDERABLE S Performing Organization Address [facility] Co de Phone Number [facility] [place] [address] * EKG 12 Lead (10/30/2023 8:21 PM EDT) Ventricular rate 49 BPM MUSE SYSTEM Atrial Rate 49 BPM MUSE SYSTEM P-R Interval 230 ms MUSE SYSTEM QRS Duration 96 ms MUSE SYSTEM Q-T Interval 526 ms MUSE SYSTEM QTC Calculated (Bezet) 475 ms MUSE SYSTEM Calculated [place] 98 degrees MUSE SYSTEM Calculated R [place] -48 degrees MUSE SYSTEM Calculated [place] -51 degrees MUSE SYSTEM INTERPRETATION Sinus bradycardia [...] Cornejo MD ECG ORDERABLES Performing Organization Address [facility] Co de Phone Number MUSE [...] other ordered pain medications are indicated., Routine 224 (Given - Provider: Danica Shipley RN) aspirin [...] Mary Sweeney RN)2012 (Given - Provider: Danica Shipley, TANESHA) 0820 (Given - Provider: Lucretia Thurman, TANESHA) [...] Subcutaneous, ONCE PRN, 1 dose, Starting on 10/30/23 at 2208, Until Amna 11/03/23 at 1913, for discomfort with PIV insertion, Routine 1333 ([facility] Hold - Provider: Admin Adt - Reason: Transfer to a Procedural area)1548 ([facility] Unhold - Provider: Admin Adt) midazolam (pf) (Versed) (1 mg/mL) multi-dose injection (CANCELED) PRN, Starting on 11/01/23 at 1346, Until Tu11/01/23 at 1548, Intra-Operative [...] to 72 hours., Routine 1333 ([facility] Hold - Provider: Admin Adt - Reason: Transfer to a Procedural area)1548 ([facility] Unhold - Provider: Admin Adt) [...] this medication record., Routine 1333 ([facility] Hold - Provider: Admin Adt - Reason: Transfer to a Procedural area)1548 ([facility] Unhold - Provider: Admin Adt) documented in this encounter Additional Health Concerns Infection Onset Date Last Indicated Resolved Time Rule Out Respiratory 11/02/2023 11/02/2023 024 12:22 PM EDT Rule Out COVID-19 11/02/2023 11/02/202311/0111/02/2023 12:22 PM EDT documented as of this encounter Care Teams Skin Lifter Bacon Relationship Specialty Start Date End Date Rosie Mathews MD [address] [place] [address] PCP - General Family Medicine 11/25/17 11/23/23 documented as of this encounter
--- OUTSIDE RECORDS SUMMARY | 2024-07-25 15:45 | XMS_ITS | Encounter Summary ---
Author Organization [facility] Address [facility] [place] [address] Care Team Providers Care Career Professional Name Role Phone Rosie Mathews MD Primary Care Provider [phone] Encounter Details Date Type Department Care Team (Late st Contact Info) Description 10/30/2023 [place] [phone] Jose Lee MD [facility] [place] [address] Social History Tobacco Use Types Packs/Day Years Used Date Smoking Tobacco: Former Smokeless Tobacco: Never Alcohol Use Standard Drinks/Week Comments Not Currently 0 (1 standard drink = 0.6 oz pur e alcohol) [facility] Utilities Answer Date Recorded In [...] 1:00 PM EST Office Visit Cardiology at [address] [phone] Izaiah Meyer MD [facility] [place] [address] 08/09/2024 10:00 AM EST Hospital Encounter Non-Invasive Cardiology Lab [facility] [address] [place] [address] Arrived documented as of this encounter Visit Diagnoses Not on filedocumented in this encounter Additional Health Concerns Infection Onset Date Last Indicated Resolved Time Rule Out Respiratory 11/02/2023 11/02/2023 024 12:22 PM EDT Rule Out COVID-19 11/02/2023 11/02/2023 11/02/2023 12:22 PM EDT documented as of this encounter Care Teams Career Professional Relationship Specialty Start Date End Date Rosie Mathews MD [address] [place] [address] PCP - General Family Medicine 11/25/17 11/23/23 documented as of this encounter
--- OUTSIDE RECORDS SUMMARY | 2024-07-25 15:45 | XMS_ITS | Encounter Summary ---
Author Organization [facility] Address [facility] [place] [address] Care Team Providers Care Manager News Name Role Phone Rosie Mathews MD Primary Care Provider [phone] Reason for Visit * Auth/Cert (Routine) Specialty Diagnoses / Procedures Referred By Contac t Referred To Contact Diagnoses Unstable angina Procedures [employer] [place] [employer] [facility] Referral ID Status Reason Start Date Expiration Date Visits Re quested Visits Authorized [id number] 1 1 Encounter Details Date Type Department Care Team (Latest Contact Info) Description 10/30/2023 5:00 PM EDT - 10/30/2023 5:10 PM EDT Hospital Encounter [place] [address] Rosa Menjivar MD [facility] [place] [address] Discharge Disposition: Home Social History Tobacco Use [...] Med - vitamin b 125 complex 01/30/20082023 VALSARTAN/HYDROCHLOROTH IAZIDE (DIOVAN HCT ORAL) 01/30/2008 11/03/2023 VITAMIN E ACETATE (VITAMIN E ORAL) 01/30/2008 11/03/2023 documented as of this encounter Plan of Treatment Upcoming Encounters Date Type Department Care Team (Late st Contact Info) Description 08/07/2024 1:00 PM EST Office Visit Cardiology at [address] [place] [phone] Izaiah Meyer MD [facility] [place] [address] 08/09/2024 10:00 AM EST Hospital Encounter Non-Invasive [place] [address] Arrived documented as of this encounter Visit Diagnoses Not on filedocumented in this encounter Care Teams Manager News Relationship Specialty Start Date End Date Rosie Mathews MD [address] [place] [address] PCP - General Family Medicine 11/25/17 11/23/23 documented as of this encounter
--- OUTSIDE RECORDS SUMMARY | 2024-07-25 15:45 | XMS_ITS | Encounter Summary ---
Author Organization [facility] [place] [address] Care Team Providers Care Book Binder Name Role Phone Rosie Matehws MD Primary Care Provider [phone] Encounter Details Date Type Department Care Team (Late st Contact Info) Description 10/30/2023 [place] [phone] Jose Lee MD [facility] [place] [address] Social History Tobacco Use Types Packs/Day Years [...] Date: 10/30/2023 Referring Provider: Bree Patient Location: [facility] HPI: 83 yoF w/ PMHx of [...] as tolerated - TTE - plan for C Above recommendations were based on my discussion with Dr. Giron; I have not personally interviewed or examined this patient. Advised to call the transfer center back with any changes in the patient condition. Jose Lee MD Creative Services Director documented in this encounter Plan of Treatment Upcoming Encounters Date Type Department Care Team (Late st Contact Info) Description 08/07/2024 1:00 PM EST Office Visit Cardiology at [address] [place] [phone] Izaiah Meyer MD [facility] [place] [address] 08/09/2024 10:00 AM EST Hospital Encounter Non-[place]vasive [place] [address] Arrived documented as of this encounter Visit Diagnoses Not on filedocumented in this encounter Care Teams Book Binder Relationship Specialty Start Date End Date Rosie Mathews MD [address] [place] [address] PCP - General Family Medicine 11/25/17 11/23/23 documented as of this encounter
--- OUTSIDE RECORDS SUMMARY | 2024-07-25 15:45 | XMS_ITS | Encounter Summary ---
Author Organization [facility] Address [facility] [place] [address] Care Team Providers Care Meal Temperer Name Role Phone Rosie Mathews MD Primary Care Provider [phone] Encounter Details Date Type Department Care Team (Late st Contact Info) Description 10/30/2023 5:00 PM EDT Ancillary Procedure Radiology Library [place] [address] Izaiah Meyer MD [facility] [place] [address] Social History Tobacco Use Types Packs/Day Years Used Date Smoking Tobacco: Former Smokeless Tobacco: Never Alcohol Use Standard Drinks/Week Comments Not Currently 0 (1 standard drink = 0.6 oz pur e alcohol) [facility] Inpatient Questions Answer Date Recorded [...] PM EST Office Visit Cardiology at [address] [place] [address] Izaiah Meyer MD [facility] [place] [address] 08/09/2024 10:00 AM EST Hospital Encounter Non-Invasive Cardiology Lab [facility] [place] [address] Arrived documented as of this encounter Procedures Procedure Name Priority Date/Time Associated Diagnosis Comments FILM LIBRARY STORAGE ONLY CT CHEST Routine 10/30/2023 4:59 PM EDT documented in this encounter Results * Film Library- Storage Only CT Chest (10/30/2023 4:59 PM EDT) Narrative [facility] - 10/30/2023 4:59 PM EDT This exam is auto-finalizing. It's purpose is for storage only. Izaiah Meyer MD IMG FILM LIBRARY ORD ERABLES [place], [place] documented in this encounter Visit Diagnoses Not on filedocumented in this encounter Care Teams Meal Temperer Relationship Specialty Start Date End Date Rosie Mathews MD [address] [place] [address] PCP - General Family Medicine 11/25/17 11/23/23 documented as of this encounter
--- OUTSIDE RECORDS SUMMARY | 2024-07-25 15:45 | XMS_ITS | Encounter Summary ---
Author Organization [facility] Address [facility] [place] [address] Care Team Providers Care Hadoop Consultant Name Role Phone Rosie Mathews MD Primary Care Provider [phone] Encounter Details Date Type Department Care Team (Late st Contact Info) Description 10/30/2023 External Results Transfer Center [facility] [place] [phone] Social History Tobacco Use Types Packs/Day Years Used Date Smoking Tobacco: Former Smokeless Tobacco: Never Alcohol Use Standard Drinks/Week Comments Not Currently 0 (1 standard drink = 0.6 oz pur e alcohol) [facility] Utilities Answer Date Recorded In the past 12 months has e [employer], gas, oil, or water [employer] threatened to shut off services in [...] PM EST Office Visit Cardiology at [address] [phone] Izaiah Meyer MD [facility] [place] [address] 08/09/2024 10:00 AM EST Hospital Encounter Non-[place] [address] Arrived documented as of this encounter Procedures Procedure Name Priority Date/Time Associated Diagnosis Comments ECG SCAN Routine 10/30/2023 3:58 PM EDT ECG SCAN Routine 10/30/2023 3:23 PM EDT documented in this encounter Results * Scan Doc: ECG (10/30/2023 3:58 PM EDT) Historical Provider MD CANDY BAEZ SCAN EX T ORDR/RSLT * Scan Doc: ECG (10/30/2023 3:23 PM EDT) Historical Provider MD GUPTA MGR SCAN EX T ORDR/RSLT documented in this encounter Visit Diagnoses Not on filedocumented in this encounter Care Teams Hadoop Consultant Relationship Specialty Start Date End Date Rosie Mathews MD [address] [place] [id number] PCP - General Family Medicine 11/25/17 11/23/23 documented as of this encounter
--- OUTSIDE RECORDS SUMMARY | 2024-07-25 15:45 | XMS_ITS | Encounter Summary ---
[place] [address] Care Team Providers Care Forward Air Controller/Air Officer Name Role Phone Rosie Mathews MD Primary Care Provider [phone] Reason for Visit * Auth/Cert (Routine) Specialty Diagnoses / Procedures Referred By Contbruce t Referred To Contact Diagnoses Unstable angina Chest pain NSTEMI Procedures CARDIAC CATHETERIZATION Rosa Dewey MD [facility] [place] [address] [facility] Referral ID Status Reason Start Date Expiration Date Visits Re quested Visits Authorized [id number] 1 1 Encounter Details Date Type Department Care Team (Late st Contact Info) Description 10/30/2023 4:25 PM EDT - 10/30/2023 5:27 PM EDT [place] [address] Rosa Dewey MD [facility] [place] [address] CARDIAC CATHETERIZATION Social History Tobacco Use Types Packs/Day Years Used Date Smoking Tobacco: Former Smokeless Tobacco: Never Alcohol Use Standard Drinks/Week Comments Not Currently 0 (1 standard drink = 0.6 oz pur e alcohol) [facility] Inpatient Questions Answer Date Recorded Does [...] [facility] a transfer from [facility] as a possible STEMI alert with acute onset chest pain. The patient reports that her symptoms initially began on Tuesday when she was walking to [facility] and experienced bilateral arm heaviness while [...] the patient was taken directly to the Functional Manager. Two lesions were discovered: one in the prox RCA (felt to almost be a GUIDE but they were able to wire, balloon, [...] dose administered prior to arrival in the pipelines laborer. Recommended anti-platelet/anti-thrombotic regimen: Continue aspirin 81 [...] low lung volumes. Findings similar to supervisor covering and lining radiograph from CT 10/30/2023. Pending Studies and [...] 10:40 AM Izaiah Meyer MD Cardiology at [place] Arrive at: [facility] [address] [phone] Future Orders Complete By Expires Referral to Cardiac Rehab [[id number] Custom] As directed Process Instructions: If no progress note charted, please enter Clinical details in comments. Scheduling Instructions: Questions: My question or request is: STEMI. Cardiac rehab at [facility]. Referral to Home Health [[id number] Custom] As directed Process Instructions: If no progress note charted, please enter Clinical details in comments. Scheduling Instructions: Comments: Please evaluate Adin Dorene Santos for admission to Home Health. [address] [facility] [address] (home) Date of : 1940 Inpatient DOCUMENTATION FOR VNA SERVICES (INCLUDING THOSE PATIENTS WITH MEDICARE COVERAGE REQUIRING HOME VNA SERVICES AND/OR HOSPICE SERVICES) PATIENT'S LOCATION: Adin Santos [address] [facility] [address] (home) Cell: Telephone Information: Senior Marketing Specialist's Name: self In discussion with the attending physician, it is certified that this patient is under their care and that they, or a Nurse Practitioner, Clinical Nurse specialist or Physician Mix House Operator who is working directly with them, [...] issues HOME HEALTH CARE AGENCY: [facility] [address] [place] [id number] START OF CARE: within 24-48 hours of [...] Rosie Mathews MD [address] / [facility] [address] . All VNA agencies which cover the [...] MD / Dr. Masood Pierson [address] [place] [address] [phone] 11/09/23 1:55 PM arrival for 2:10 PM appointment Outside Property Agent: Izaiah Meyer MD [address] [place] [address] , 11/24/2023 10:40 AM Your Inpatient Medical Team at [facility] Name(s) of your inpatient provider(s): Attending physician: Rosa Hugo MD Resident physicians: Emile Robles MD; Elmer Tamez MD If you have non-emergent questions, prior to your follow-up visit call: Tuesday-Tuesday between the hours of 8AM-5PM please call the Cardiology Clinic [phone] to speak with a nurse. All other hours please call the Hospital Funeral Arrangement Director [phone] and ask to speak to the bronzer on-call. Your Primary Care Provider Rosie Mathews MD [phone] For questions regarding this document or issues relating to this hospitalization on the Medical Service, please contact your inpatient physician through the [facility] Funeral Arrangement Director . Issues afterhours and on weekends will be handled by the Outside Property Agent staff on-call. Associated attestation - Rosa Hugo [...] / Dr. Masood Pierson [address] [place] [phone] 11/09/23 1:55 PM arrival for 2:10 PM appointment Outside Property Agent: Izaiah Meyer MD [address] [place] [address] , 11/24/2023 10:40 AM Your Inpatient Medical Team at [facility] Name(s) of your inpatient provider(s): Attending physician: Rosa Hugo MD Resident physicians: Emile Robles MD; Elmer Tamez MD If you have non-emergent questions, prior to your follow-up visit call: Tuesday-Tuesday between the hours of 8AM-5PM please call the Cardiology Clinic [phone] to speak with a nurse. All other hours please call the Hospital Funeral Arrangement Director [phone] and ask to speak to the bronzer on-call. Your Primary Care Provider Rosie Mathews MD [phone] documented in this encounter Medications at Time [...] [facility] as a transfer from [facility] [...] 69.8 kg (153 lb 14.4 oz) 11/01/23 0057 70.8 kg (156 lb 1.6 [...] Vitals for the past 168 hrs: Weight 11/02/23526 69.8 kg (153 lb 14.4 oz) 11/01/2356 [...] 36.8 PLATELET 198 197 184 Recent Labs 11/02/233411/01/2330810/31/23136 NA 136 137 140 K 3.6 3.4* 3.9 CL 102 105 107 CO2 25 24 25 BUN 9 14 13 CREATININE 0.83 0.83 0.81 Recent Labs 10/30/232204 AST 36* ALT 17 ALKPHOS 54 BILITOT 0.5 Recent Labs 11/02/233411/01/2330810/31/23136 CALCIUM 9.0 8.6 8.6 MAGNESIUM 0.87 0.82 [...] [facility] a transfer from [facility] [...] Resident on Cardiology Service Cardiology S1 (Pager [phone]) Note written in conjunction with Claudio Perla [...] Nirmala Webb - 11/01/2023 11:25 AM EDT Customer Support Associate Encounter Note Patient Name: Adin Santos : [id number] MR#: [id number] Admit Date: 10/30/2023 5:11 PM Hospital Day 2 days Narrative: Self initiated visit to patient for Spiritual support in a regular unit rounds. Assessment: Patient is in the bathroom at the time of this visit. Not a good time for Market Research Coordinator visit. Intervention and Outcome: An attempted [...] [facility] a transfer from [facility] [...] admission: Net IO Since Admission: -1,009.5 mL [11/01/231412] Patient Vitals for the past 168 hrs: [...] ALKPHOS 54 BILITOT 0.5 Recent Labs 11/01/23 03010/31/2313610/30/232204 CALCIUM 8.6 8.6 8.8 MAGNESIUM 0.82 0.83 0.86 PHOS 2.5 3.2 3.3 Recent Labs 10/31/23 0305 INR [...] low lung volumes. Findings similar to supervisor covering and lining radiograph from CT 10/30/2023. Scheduled Medications: [MAR Hold] spironolactone 12.5 mg Oral Daily [MAR Hold] hydrALAZINE 10 mg Oral TID aspirin EC 81 mg Oral Daily clopidogreL 75 mg Oral Daily [MAR Hold] atorvastatin 80 mg Oral QPM [MAR Hold] sodium chloride 0.9 % (flush) 5 mL Intravenous BID [MAR Hold] heparin (porcine) 5,000 Units Subcutaneous Q8H ERIC PRN Medications: midazolam (PF), fentaNYL (PF), heparin (porcine), [MAR Hold] acetaminophen, [MAR Hold] sodium chloride 0.9 % (flush), [MAR Hold] lidocaine, [MAR Hold] nitroGLYcerin Assessment/Plan: Adin Santos is a 83 y.o. female PMH significant for hypertension and hyperlipidemia who presented to [facility] [...] Resident on Cardiology Service Cardiology S1 (Pager [phone]) Note written in conjunction with Claudio Perla [...] [facility] as a transfer from [facility] as a possible STEMI alert with acute onset chest pain. Active Problems: Active Hospital Problems Diagnosis Unstable angina Resolved Hospital Problems No resolved problems to display. 24 hr events: - Cath'd yesterday with lesion in the proximal RCA (initially thought it was GUIDE but they were ableto wire, balloon and [...] BP: (106-186)/(53-111) Respiratory Rate Resp: 17 Resp: [12-] SpO2 SpO2: 94 % SpO2: [87 %-98 [...] responsive. Without focal deficit Labs Recent Labs 10/31/235 10/31/2313610/30/232204 WBC 11.5* 10.6* 9.0 HGB 12.6 [...] low lung volumes. Findings similar to supervisor covering and lining radiograph from CT 10/30/2023. TTE (10/30): Interpretation [...] [facility] a transfer from [facility] [...] Resident on Cardiology Service Cardiology S1 (Pager [phone]) Note written in conjunction with Claudio Perla [...] PCP: Rosie Mathews MD PCP phone number: [phone] Date of Admission: 10/30/2023 ( Hospital Day 0 days ) Attending:Rosa Cornejo MD ID: Adin Santos is a 83 y.o. female PMH significant for hypertension and hyperlipidemia who presented to [facility] as a transfer from [facility] as a possible STEMI alert with acute onset chest pain. The patient reports that her symptoms initially began on Tuesday when she was walking to [facility] and experienced bilateral arm heaviness while [...] the patient was taken directly to the Functional Manager. 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 Findings similar to supervisor covering and lining radiograph from CT 10/30/2023. Assessment & Plan: Adin Santos is a 83 y.o. female PMH significant for hypertension and hyperlipidemia who presented to [facility] a [facility] [...] HTN HLD transferred with chest from [facility]. BP 217/68, HR 71 EKG [...] information for follow-up Home Health [facility] H[facility], [place] [facility] [address] TANESHA BOYCE confirmed with Brittany CARVAJAL that [...] shift in the room. Electrolytes replaced, see AUG. wharf laborer sites remained C/D/I with baseline ecchymosis unchanged. Pt complained of back pain, lidocaine patch given. Right IV infiltrated during infusion, patient is marked with sharpie, IV removed. See flowsheet for I+O's and safety rounding. Patient is able to make needs known and call capps within reach. PLAN MOVING FORWARD: Monitor Tele, control BP, monitor pipelines laborer sites, D/C Planning INDIVIDUALIZED FALL PREVENTION [...] an outpatient cardiac rehabilitation program at [facility] was discussed. Patient agrees to [...] and above on RA. PT went to pipelines laborer today. Left fem site oozed throughout [...] MOVING FORWARD: Monitor Tele, control BP, monitor pipelines laborer sites, D/C Planning INDIVIDUALIZED FALL PREVENTION [...] From: Transfer from another hospital Location: [facility] Reason for Hospitalization: chest pain Covid Vaccination Status: 1st, 2nd & booster Past medical History: No past medical history on file. Hospitalizations Within the Past 30 Days: no previous admission in last 30 days Current Decision-Making Capacity: Self If AD's have not been completed the following surrogate would be surrogate decision maker per [place] surrogate decision making law. (Only good for 180 days) Any patient receiving care in [place] must abide by [place] law. The hierarchy for surrogate decision making [...] (i) The agent with financial power of registered dietetic technician or a conservator appointed in accordance [...] has the electric, gas, oil, or water [employer] threatened to shut off services in your [...] toilet seat Home Address confirmed as: [address] [facility] [address] Social & Family Supports: All names listed below confirmed with patient as current and correct Extended Emergency Contact Information Primary Emergency Contact: Iris Downing Address: [address] [place], [place] [address] [place] [address] Mobile Relation: Child Secondary Emergency Contact: Karen More Address: [address] [facility] Mobile Relation: Child Current Care Provided by: self Provides Primary Care For: no one Caregiver if needed: child(emmanuel), adult Quality of Family relationships: involved, supportive Community Resources being provided currently: other (see comments) (receives [facility] services at home (1xweekly)) [...] Insurance: N/A Prescription Coverage: Yes Preferred Pharmacy: [facility] [place], [place] - [address] [place] [address] Status: Patient is a : No Primary Care Provider listed: Masood Pierson MD [phone] Patient/Caregiver Goals of Treatment: home when MR Potential Needs for Transition of Care: home health care Agency Referrals: Not Applicable I have met with the patient to: discuss discharge planning needs. provide the [facility], Office of Care Management letter from the Supervisor Industrial Arts Education pertaining to rehab referrals. provide a letter describing our affiliations within the [facility] and educate about their right to choose where referrals are sent. provide a list of Home Health Agencies / Durable Medical Equipment vendors which serve their preferred geographic area. provided patient with [facility] Star Quality Rating handout. They have requested referrals to: [facility] [address] [place] [address] Note routed to a Line Erector who will communicate referrals to facilities and [...] results. PO hydralazine added for BP control. wharf laborer sites remain C/D/I, ecchymosis unchanged th roughout shift. See flowsheet for I+O's and safety rounding. Patient is able to make needs known and call capps within reach. PLAN MOVING FORWARD: Monitor Tele, control CP and BP, NPO at MD for cath, monitor pipelines laborer sites, D/C Planning INDIVIDUALIZED FALL PREVENTION [...] 1:00 PM EST Office Visit Cardiology at [address] [phone] Izaiah Meyer MD [facility] [place] [address] 08/09/2024 10:00 AM EST Hospital Encounter [place] [id number] Arrived Scheduled Referrals Name Type Priority Associated [...] 3:46 AM EDT) Neutrophil % 63.3 % [facility] Neutrophil Absolute 5.28 1.70 - 6.10 x10(3)/mc L [facility] Lymph % 15.2 % [facility] Lymphocytes Abs 1.3 0.9 - 3.2 x10(3)/mc L [facility] Monocyte % 16.9 % [facility] Monocyte Abs 1.4(H) 0.3 - 0.9 x10(3)/mc L [facility] Eos % 3.7 % [facility] Eosinophils Abs 0.3 0.0 - 0.4 x10(3)/mc L [facility] Basophil % 0.5 % [facility] [...] ORDERABLE S [facility] [place] [address] * (ABNORMAL) Hemogram (11/03/2023 3:46 AM EDT) [...] [facility] NRBC% auto 0.0 % [facility] NRBC Absolute 0.000 0.000 - 0.000 x10(3)/mc L [facility] Blood 11/03/2023 3:46 AM EDT 11/03/2023 4:11 AM EDT Narrative Resulting Agency Comment Spec In Lab Qamar Gallardo MD HEMATOLOGY ORDERABLE S [facility] [place] [address] * Phosphorus (11/03/2023 3:46 AM EDT) Phosphorus 3.2 2.5 - 4.5 mg/dL [facility] Comment:result rechecked-KS Blood 11/03/2023 3:46 AM EDT 11/03/2023 4:11 AM EDT Narrative Resulting Agency Comment Spec In Lab Rosa Cornejo MD CHEMISTRY ORDERABLE S Performing Organization Address City/[facility]/ZIP Co de Phone Number [facility] [place] [address] * Magnesium (11/03/2023 3:46 AM EDT) Magnesium 0.90 0.69 - 1.07 mmol/L [facility] Blood 11/03/2023 3:46 AM EDT 11/03/2023 4:11 AM EDT Narrative Resulting Agency Comment Spec In Lab Rosa Cornejo MD CHEMISTRY ORDERABLE S [facility] [place] [address] * (ABNORMAL) Basic Metabolic Panel (non-fasting) (11/03/2023 [...] ORDERABLE S [facility] [place] [address] * EKG 12 Lead (11/02/2023 12:44 PM EDT) Ventricular rate 83 BPM MUSE SYSTEM Atrial Rate 83 BPM MUSE SYSTEM P-R Interval 216 ms MUSE SYSTEM QRS Duration 90 ms MUSE SYSTEM Q-T Interval 384 ms MUSE SYSTEM QTC Calculated (Bezet) 451 ms MUSE SYSTEM Calculated P Draper 92 degrees MUSE SYSTEM Calculated R Draper -51 degrees MUSE SYSTEM Calculated T Draper -33 degrees MUSE SYSTEM INTERPRETATION Sinus rhythm with 1st degree A-V block with Premature atrial complexes Left axis deviation Moderate voltage criteria for LVH, may be normal variant ( R in aVL , [place] product ) Anterolatera l infarct (cited on or before 01-NOV-2023) Abnormal ECG When compared with ECG of 01-NOV-2023 22:10, Premature atrial complexes are now Present SD interval has increased Vent. rate has decreased BY ??56 BPM Confirmed by MD Kevin, Esteban ([id number]) on 11/02/2023 1:32:10 PM MUSE SYSTEM 11/02/2023 12:4 4 PM EDT 11/02/2023 1:32 PM EDT Rosa Hugo MD ECG ORDERABLES MUSE SYSTEM * (ABNORMAL) Urinalysis Microscopic Exam (11/02/2023 11:40 AM EDT) Pathologist [facility] RBC, Urine <1 0 - 4 /HPF [...] Tamez MD URINE ORDERABLES Performing Organization Address City/[facility]/ZIP Co de Phone Number [facility] [place] [address] * (ABNORMAL) Urinalysis with reflex Culture (11/02/2023 [...] LABORATORY Leukocytes, Urine Dipstick Small(A) Negative [facility] Appearance, Urine Dipstick Cloudy(A) Clear [facility] Specific [place] Urine Automated >=1.030(A) 1.005 - 1.030 [facility] Color, Urine Dipstick Dark Yellow Yellow [facility] Reflex to Culture Yes [facility] Clean Catch Urine 11/02/2023 11:40 AM EDT 11/02/2023 12:04 PM EDT Narrative Resulting Agency Comment Spec In Lab Rosa Hugo MD URINE ORDERABLES Performing Organization Address City/[facility]/ZIP Co de Phone Number [facility] [place] [address] * Respiratory Panel PCR (11/02/2023 10:15 AM EDT) Respiratory Panel Source SOLID FIBER PASTER OPERATOR Swab [facility] Respiratory Panel PCR Negative Negative [facility] Comment: Respiratory Panels are performed on the [employer], using multiplexed PCR nucleic acid detection. ??Negative results do not preclude respiratory infection and should not be used as the sole basis for diagnosis, treatment or other management decisions. Adenovirus Not Detected Not Detected [facility] Coronavirus HKU1 Not Detected Not Detected [facility] Coronavirus NL63 Not Detected Not Detected [facility] Coronavirus 229E Not Detected Not Detected [facility] Coronavirus OC43 Not Detected Not Detected [facility] SARS-CoV-2 Not Detected Not Detected [facility] Comment: Testing for SARS-CoV-2 (Severe acute respiratory syndrome coronavirus 2) to aid in the diagnosis of COVID-19 is performed using the [employer] Respiratory Panel 2.1 (ArcMail) as authorized by the FDA issued Emergency Use Authorization (EUA). This panel also tests for multiple other viral and bacterial pathogens. This assay is intended for In-vitro Diagnostic (IVD) use with nasopharyngeal swabs in viral transport media. The assay is performed based on the instructions for use and additional guidance provided by the FDA. Testing is performed in laboratories within the [facility], each of which is certified under [...] fact sheets at the following FDA website: https://www.fda.gov/medical-devices/lcwhnywwizm-ygpphyp-2718-phbkl-73-yvudkfjsf- use-a vhpaiexphqjcg-veapgtk-jvotwuv/jlzcv-mwdzvyanybs-ymwx Human Metapneumovirus Not Detected Not Detected [facility] [...] ERAL ORDERABLES [facility] [place] [address] * XR Chest One View (11/02/2023 2:51 AM EDT) WORKSTATION ID [id number] RAD Anatomical Region Laterality Modality Chest N/A [...] questions please contact the health hearing care professional that requested your imaging first. ? Narrative [...] have questions please contactthe health hearing care professional that requested your imaging first. Rosa Hugo MD IMG DX ORDERABLES * (ABNORMAL) Differential, Automated (11/02/2023 12:35 AM EDT) Neutrophil % 76.5 % [facility] Neutrophil Absolute 7.69(H) 1.70 - 6.10 x10(3)/mc L [facility] Lymph % 8.3 % [facility] Lymphocytes Abs 0.8(L) 0.9 - 3.2 x10(3)/mc L [facility] Monocyte % 12.9 % [facility] Monocyte Abs 1.3(H) 0.3 - 0.9 x10(3)/mc L [facility] Eos % 1.4 % [facility] Eosinophils Abs 0.1 0.0 - 0.4 x10(3)/ L [facility] Basophil % 0.4 % [facility] Baso Absolute 0.0 0.0 - 0.1 x10(3)/[facility]OR[facility] Immature Gran % 0.50 % [facility] Comment: Immature granulocytes(IG's)percentage and absolute count will include metamyelocytes, myelocytes, and promyelocytes. Blood smears from CBCs yielding IG's will be scanned manually for concordance. If this scan disagrees with the automated IG or if promyelocytes are noted, a manual differential will be performed. Immature Gran Absolute 0.05(H) 0.00 - 0.04 x10(3)/[facility] Blood 11/02/2023 12:3 5 AM EDT 11/02/2023 12:43 AM EDT Narrative Resulting Agency Comment Spec In Lab Qamar Gallardo MD HEMATOLOGY ORDERABLE S [facility] [place] [address] * (ABNORMAL) Hemogram (11/02/2023 12:35 AM EDT) White Blood Cell 10.0(H) 4.0 - 9.5 x10(3)/ L [facility] Red Blood Cell 4.06 4.00 - 5.21 x10(6)/ L [facility] Platelet 198 145 - 357 x10(3)/ L [facility] RDW Standard Deviation 52.1(H) 37.0 - 46.0 fL [facility] RDW coefficient of variation 14.3(H) 11.5 - 14.1 % [facility] Mean Platelet Volume 11.4 7.6 - 12.9 fL [facility] NRBC% auto 0.0 % [facility] NRBC Absolute 0.000 0.000 - 0.000 x10(3)/mc L [facility] Blood 11/02/2023 12:3 5 AM EDT 11/02/2023 12:43 AM EDT Narrative Resulting Agency Comment Spec In Lab Qamar Gallardo MD HEMATOLOGY ORDERABLE S Performing Organization Address [facility]/[place] [address] * (ABNORMAL) Phosphorus (11/02/2023 12:35 AM EDT) Phosphorus 1.6(L) 2.5 - 4.5 mg/dL [facility] Blood 11/02/2023 12:3 5 AM EDT 11/02/2023 12:43 AM EDT Narrative Resulting Agency Comment Spec In Lab Rosa Cornejo MD CHEMISTRY ORDERABLE S Performing Organization Address City/[facility]/ZIP Co de Phone Number [facility] [place] [address] * Magnesium (11/02/2023 12:35 AM EDT) Magnesium 0.87 0.69 - 1.07 mmol/L [facility] Blood 11/02/2023 12:3 5 AM EDT 11/02/2023 12:43 AM EDT Narrative Resulting Agency Comment Spec In Lab Rosa Cornejo MD CHEMISTRY ORDERABLE S [facility] [place] [place] [address] * Basic Metabolic Panel (non-fasting) (11/02/2023 12:35 [...] ORDERABLE S Performing Organization Address [facility] Co de Phone Number [facility] [place] [address] * Blood culture (11/02/2023 12:35 AM EDT) Blood Culture No growth at 5 days. [facility] Blood 11/02/2023 12:3 5 AM EDT 11/02/2023 1:55 AM EDT Comment:#2 site ukn Narrative Resulting Agency Comment Spec In Lab Rosa Hugo MD MICROBIOLOGY - BLO OD ORDERABLES Performing Organization Address [facility] Co de Phone Number [facility] [place] [address] * Blood culture (11/02/2023 12:15 AM EDT) Blood Culture No growth at 5 days. [facility] Blood 11/02/2023 12:1 5 AM EDT 11/02/2023 1:54 AM EDT Comment:#1site unk Narrative Resulting Agency Comment Spec In Lab Rosa Hugo MD MICROBIOLOGY - BLO OD ORDERABLES Performing Organization Address [facility] Co de Phone Number [facility] [place] [address] * EKG 12 Lead (11/01/2023 10:10 PM EDT) Ventricular rate 139 BPM MUSE SYSTEM Atrial Rate 139 BPM MUSE SYSTEM P-R Interval 168 ms MUSE SYSTEM QRS Duration 84 ms MUSE SYSTEM Q-T Interval 286 ms MUSE SYSTEM QTC Calculated (Bezet) 435 ms MUSE SYSTEM Calculated R Draper -59 degrees MUSE SYSTEM Calculated T Draper -27 degrees MUSE SYSTEM INTERPRETATION Mid-RP tachycardia, consider sinus tachycardia or SVT Left axis deviation Moderate voltage criteria for LVH, may be normal variant ( R in aVL , [place] product ) Inferior infarct (cited on or before 01-NOV-2023) Anterolateral infarct (cited on or before 01-NOV-2023) Abnormal ECG When compared with ECG of 01-NOV-2023 15:22, Vent. rate Although rate has increased Serial changes of Anterior infarct Present I personally reviewed the tracing and edited the fellows interpretation Confirmed by fellow MD Andrés, Enriqueta ([id number]) on 11/04/2023 7:57:50 AM Confirmed by MD Gerardo, Shameka ([id number]) on 11/04/2023 4:32:03 PM MUSE SYSTEM 11/01/2023 [...] [facility] NRBC% auto 0.0 % [facility] NRBC Absolute 0.000 0.000 - 0.000 x10(3)/mc L [facility] Blood 11/01/2023 10:0 6 PM EDT 11/01/2023 10:22 PM EDT Narrative Resulting Agency Comment Spec In Lab Rosa Hugo MD HEMATOLOGY ORDERAB LES Performing Organization Address City/[facility]/ZIP Co de Phone Number [facility] [place] [address] * POCT Glucose (11/01/2023 5:59 PM EDT) Glucose, POC 104 65 - 199 mg/dL [facility] Comment: Supplemental ranges: <140 mg/dL before meals <180 mg/dL all other times of the day Blood 11/01/2023 5:59 PM EDT 11/01/2023 5:59 PM EDT Rosa Hugo MD POINT OF CARE TEST ORDERABLES Performing Organization Address [facility] Co de Phone Number [facility] [address] * POCT Glucose (11/01/2023 5:35 PM EDT) Glucose, POC 85 65 - 199 mg/dL [facility] Comment: Supplemental ranges: <140 mg/dL before meals <180 mg/dL all other times of the day Blood 11/01/2023 5:35 PM EDT 11/01/2023 5:35 PM EDT Rosa Hugo MD POINT OF CARE TEST ORDERABLES Performing Organization Address City/[facility]/ZIP Co de Phone Number [facility] [address] * EKG 12 Lead (11/01/2023 3:22 PM EDT) Ventricular rate 59 BPM MUSE SYSTEM Atrial Rate 59 BPM MUSE SYSTEM P-R Interval 220 ms MUSE SYSTEM QRS Duration 94 ms MUSE SYSTEM Q-T Interval 428 ms MUSE SYSTEM QTC Calculated (Bezet) 423 ms MUSE SYSTEM Calculated P Draper 76 degrees MUSE SYSTEM Calculated R Draper -50 degrees MUSE SYSTEM Calculated T Draper -59 degrees MUSE SYSTEM INTERPRETATION Sinus bradycardia [...] ? Cardiac Catheterization/Intervention Report ? Patient Name: [place] ? Procedure Date: 11/01/2023 ? A #: [id number] ? Primary Physician: Rosa Dewey I ? Case #: [id number] ? File Name: [id number] ? Catheterization Order Number: [id number] ? [facility] ? Final Report [place], [place] ? Patient Name: ? Adin M. Goguen ?ID#: ?[id number] ? : ?1940 ? Procedure Date: ? November 01, 2023 ? Case #: ? [id number] ? Room: ? 2 ? Case Physician: ? Rosa Dewey M.D. ? Start: ?13:53 ? Admission: ??10/30/2023 ? Referring Physician: ??Omiara Giron M.D. ? Discharge: ??11/03/2023 ? Procedures: [...] as ASA Class III. The [facility] clinical ?frailty scale is 4: Vulnerable. [...] procedure was Urgent. The indication for ?the pipelines laborer visit is ACS greater than 24 [...] ??A premounted ? 3.50 x 15 mm Taholah Kasigluk (RADHA) was deployed with a maximum ? [...] ? A premounted 3.50 x 15 mm Taholah Kasigluk (RADHA) was deployed ? with a maximum [...] dose administered prior to arrival in the pipelines laborer. ?Recommended anti-platelet/anti-thrombotic regimen: ?Continue aspirin 81 [...] Adin Santos Procedure Date: 11/01/2023 A #: [id number] Primary Physician: Rosa Dewey I Case #: [id number] File Name: [id number] Catheterization Order Number: [id number] [facility] FinalReport [place], [place] Patient Name: Adin Santos ID#:[id number] :1940 Procedure Date: November 01, 2023 Case #: [id number] Room: 2 Case Physician: Rosa Dewey M.D. [...] diagnostic procedure was Urgent. The indicationfor the pipelines laborer visit is ACS greater than 24 [...] atmospheres. Apremounted 3.50 x 15 mm Andrea Kasigluk (RADHA) was deployed with amaximum inflation pressure [...] The lesion was predilated with a 3.00mm [id number] MM balloon with a maximum inflation pressure of 14atmospheres. A premounted 3.50 x 15 mm Andrea Kasigluk (RADHA) wasdeployed with a maximum inflation pressure [...] dose administered prior to arrival in the pipelines laborer. Recommended anti-platelet/anti-thrombotic regimen: Continue aspirin 81 [...] * POCT Glucose (11/01/2023 7:06 AM EDT) [employer] Signature Glucose, POC 93 65 - 199 mg/dL [facility] Comment: Supplemental ranges: <140 mg/dL before meals <180 mg/dL all other times of the day Blood 11/01/2023 7:06 AM EDT 11/01/2023 7:06 AM EDT Jean Lbaoy MD POINT OF CARE TEST O RDERABLES [facility] [place] [address] * (ABNORMAL) Differential, Automated (11/01/2023 3:09 AM EDT) Pathologist [facility] Neutrophil % 63.9 % [facility] Neutrophil Absolute 5.54 1.70 - 6.10 x10(3)/[facility] LABORAT[facility] Lymph % 20.0 % [facility] Lymphocytes Abs 1.7 0.9 - 3.2 x10(3)/[facility] Monocyte % 11.9 % [facility] Monocyte Abs 1.0(H) 0.3 - 0.9 x10(3)/[facility] LABOR[facility] Eos % 3.2 % [facility] Eosinophils Abs 0.3 0.0 - 0.4 x10(3)/[facility] Basophil % 0.5 % [facility] Baso Absolute 0.0 0.0 - 0.1 x10(3)/[facility] Immature Gran % 0.50 % [facility] Comment: Immature granulocytes(IG's)percentage and absolute count will include metamyelocytes, myelocytes, and promyelocytes. Blood smears from CBCs yielding IG's will be scanned manually for concordance. If this scan disagrees with the automated IG or if promyelocytes are noted, a manual differential will be performed. Immature Gran Absolute 0.04 0.00 - 0.04 x10(3)/[facility] Blood 11/01/2023 3:09 AM EDT 11/01/2023 3:29 AM EDT Narrative Resulting Agency Comment Spec In Lab Qamar Gallardo MD HEMATOLOGY ORDERABLE S [facility] [place] [address] * (ABNORMAL) Hemogram (11/01/2023 3:09 AM EDT) [facility] White Blood Cell 8.7 4.0 - 9.5 [...] HOSPITAL LABORATORY Platelet 184 145 - 357 x10(3)/[facility] RDW Standard Deviation 53.5(H) 37.0 - 46.0 [facility] LAB[facility]ATORY RDW coefficient of variation 14.6(H) 11.5 - 14.1 % [facility] Mean Platelet Volume 11.3 7.6 - 12.9 [facility] LABORATORY NRBC% auto 0.0 % [facility] NRBC Absolute 0.000 0.000 - 0.000 x10(3)/[facility] Blood 11/01/2023 3:09 AM EDT 11/01/2023 3:29 AM EDT Narrative Resulting Agency Comment Spec In Lab Qamar Gallardo MD HEMATOLOGY ORDERABLE S [facility] [place] [address] * Phosphorus (11/01/2023 3:09 AM EDT) Phosphorus 2.5 2.5 - 4.5 mg/dL [facility] Blood 11/01/2023 3:09 AM EDT 11/01/2023 3:29 AM EDT Narrative Resulting Agency Comment Spec In Lab Rosa Cornejo MD CHEMISTRY ORDERABLE S [facility] [place] [address] * Magnesium (11/01/2023 3:09 AM EDT) Magnesium 0.82 0.69 - 1.07 mmol/L [facility] Blood 11/01/2023 3:09 AM EDT 11/01/2023 3:29 AM EDT Narrative Resulting Agency Comment Spec In Lab Rosa Cornejo MD CHEMISTRY ORDERABLE S Performing Organization Address [facility]/ZIP Co de Phone Number [facility] [place] [address] * (ABNORMAL) Basic Metabolic Panel (non-fasting) (11/01/2023 [...] ORDERABLE S [facility] [place] [address] * (ABNORMAL) Troponin (10/31/2023 2:46 PM EDT) Pathologist [facility] Troponin-T, High Sensitivity 544(H) <=14 ng/L [facility] [...] troponin value can be found in the [facility] Laboratory Test Catalog Troponin - [facility] Laboratory Test Catalog Reference: Fourth Bim Definition of Myocardial Infarction. Journal of the [employer] College [employer] 2018;72:0444-3281 Blood 10/31/2023 2:46 PM EDT 10/31/2023 2:55 PM EDT Narrative Resulting Agency Comment Spec In Lab Jean Laboy MD CHEMISTRY ORDERABLES Performing Organization Address City/[facility]/ZIP Co de Phone Number [facility] [place] [address] * EKG 12 Lead (10/31/2023 1:07 PM EDT) Ventricular rate 54 BPM MUSE SYSTEM Atrial Rate 54 BPM MUSE SYSTEM P-R Interval 218 ms MUSE SYSTEM QRS Duration 92 ms MUSE SYSTEM Q-T Interval 540 ms MUSE SYSTEM QTC Calculated (Bezet) 512 ms MUSE SYSTEM Calculated P Draper 85 degrees MUSE SYSTEM Calculated R Draper -44 degrees MUSE SYSTEM Calculated T Draper -69 degrees MUSE SYSTEM INTERPRETATION Sinus bradycardia [...] Cornejo MD ECG ORDERABLES Performing Organization Address City/[facility]/ZIP Co de Phone Number MUSE SYSTEM [...] troponin value can be found in the [facility] Laboratory Test Catalog Troponin - [facility] Laboratory Test Catalog Reference: Fourth Bim Definition of Myocardial Infarction. Journal of the [employer] College [employer] 2018;72:2867-4450 Blood 10/31/2023 11:3 7 AM EDT 10/31/2023 11:50 AM EDT Narrative Resulting Agency Comment Spec In Lab Rosa Cornejo MD CHEMISTRY ORDERABLE S [facility] [place] [address] * ECHO COMPLETE (10/31/2023 8:52 AM EDT) Anatomical Region Laterality Modality Cardiac Other 10/31/2023 7:57 AM EDT Narrative 10/31/2023 9:45 AM EDT [address] [place], [place] [id number] ? Echocardiogram Report Name: ADIN SANTOS ? Study Date: 10/31/2023 07:57 AMBP: 106/76 mmHg ? Patient Location: [address] : 1940 ? Height: 163 cm ? Account: [id number] Age: 83 yrs ? Weight: 76 kg Gender: Female ?BSA: 1.8 m2 Ordering Physician: ROSA DEWEY Referring Physician: OMAIRA GIRON Performed By: HAFSA Carmichael Reason For Study: STEMI Interpreting Fellow: Raymond Warren. Exam Location: [facility]. Interpretation Summary -The left ventricle is of [...] is no prior echocardiogram for comparison. Procedure Complete-84702. Satisfactory quality. There is sinus bradycardia. Left [...] Note Edgard Wang MD - 10/31/2023 [address] [place] [address] Echocardiogram Report Name: ADIN SANTOS Study Date: 407:57 AMBP: 106/76 mmHg Patient Location: [address] : 1940 Height: 163 cm Account: [id number] Age: 83 yrs Weight: 76 kg Gender: Female BSA: 1.8 m2 Ordering Physician: ROSA DEWEY Referring Physician: OMAIRA GIRON Performed By: HAFSA Carmichael Reason For Study: STEMI Interpreting Fellow: Raymond Warren. Exam Location: [facility]. Interpretation Summary -The left ventricle is of [...] is no prior echocardiogram for comparison. Procedure Complete-71360. Satisfactory quality. There is sinus bradycardia. Left [...] troponin value can be found in the [facility] Laboratory Test Catalog Troponin - [facility] Laboratory Test Catalog Reference: Fourth Bim Definition of Myocardial Infarction. Journal of the [employer] College of [employer]iology 2018;72:1589-5455 Blood 10/31/2023 8:51 AM EDT 10/31/2023 9:12 AM EDT Narrative Resulting Agency Comment Spec In Lab Rosa Cornejo MD CHEMISTRY ORDERABLE S Performing Organization Address City/State/[facility] Co de Phone Number [facility] [place] [address] * CARDIAC CATHETERIZATION (10/31/2023 8:10 AM EDT) Anatomical Region Laterality Modality Other Narrative 11/07/2023 9:42 AM EDT ?[facility] ? Cardiac Catheterization/Intervention Report ? Patient Name: Adin Santos. ? Procedure Date: 10/30/2023 ? A #: [id number] ? Primary Physician: Rosa Dewey I ? Case #: [id number] ? File Name: [id number] ? Catheterization Order Number: [id number] ? [facility] ? Final Report [place], [place] ? Patient Name: ? Adin M. Goguen ?ID#: ?[id number] ? : ?1940 ? Procedure Date: ? October 30, 2023 ? Case #: ? [id number] ? Room: ? 5 ? Case Physician: [...] as ASA Class III. The [facility] clinical frailty scale ?is 5: Mildly [...] procedure was Emergent. The indication for ?the pipelines laborer visit is ACS less than or [...] A premounted 4.00 x 38 mm Andrea Kasigluk (RADHA) was deployed ? with a maximum [...] dose administered prior to arrival in the pipelines laborer. ?Recommended anti-platelet/anti-thrombotic regimen: ?Continue aspirin 81 [...] Adin Santos Procedure Date: 10/30/2023 A #: [id number] Primary Physician: Rosa Dewey I Case #: [id number] File Name: [id number] Catheterization Order Number: [id number] [facility] FinalReport [place], [place] Patient Name: Adin Santos ID#:[id number] :1940 Procedure Date: October 30, 2023 Case [...] as ASA Class III. The [facility] clinical frailtyscale is 5: Mildly Frail. Diagnostic Tests: Electrocardiography: EKG was assessed by ECG. EKG was Abnormal. EKG showed STDeviation >= 0.5 mm, other abnormality and dynamic EKG changes. Medications Prior to Procedure: Aspirin, Angiotensin II Receptor Rodrick, Beta Rodrick andStatin. Indications for Diagnostic Cath: The priority of the diagnostic procedure was Emergent. Theindication for the pipelines laborer visit is ACS less than or [...] 16atmospheres. A premounted 4.00 x 38 mm Taholah Kasigluk (RADHA) wasdeployed with a maximum inflation pressure [...] dose administered prior to arrival in the pipelines laborer. Recommended anti-platelet/anti-thrombotic regimen: Continue aspirin 81 [...] * (ABNORMAL) Troponin (10/31/2023 4:21 AM EDT) Troponin-T, High Sensitivity 457(H) <=14 ng/L [facility] [...] troponin value can be found in the [facility] Laboratory Test Catalog Troponin - [facility] Laboratory Test Catalog Reference: Fourth Bim Definition of Myocardial Infarction. Journal of the [employer] College of [employer]iology 2018;72:7495-2215 Blood 10/31/2023 4:21 AM EDT 10/31/2023 4:30 AM EDT Narrative Resulting Agency Comment Spec In Lab Rosa Cornejo MD CHEMISTRY ORDERABLE S Performing Organization Address City/State/[facility] Co de Phone Number [facility] [address] * (ABNORMAL) Differential, Automated (10/31/2023 3:05 AM EDT) Pathologist [facility] Neutrophil % 71.7 % [facility] Neutrophil Absolute 8.21(H) 1.70 - 6.10 x10(3)/mc L [facility] Lymph % 16.9 % [facility] Lymphocytes Abs 1.9 0.9 - 3.2 x10(3)/mc L [facility] Monocyte % 9.4 % [facility] Monocyte Abs 1.1(H) 0.3 - 0.9 x10(3)/ L [facility] Eos % 1.3 % [facility] Eosinophils Abs 0.2 0.0 - 0.4 x10(3)/ L [facility] Basophil % 0.4 % [facility] Baso Absolute 0.0 0.0 - 0.1 x10(3)/[facility] LABORATORY Immature Gran % 0.30 % [facility] Comment: Immature granulocytes(IG's)percentage and absolute count will include metamyelocytes, myelocytes, and promyelocytes. Blood smears from CBCs yielding IG's will be scanned manually for concordance. If this scan disagrees with the automated IG or if promyelocytes are noted, a manual differential will be performed. Immature Gran Absolute 0.04 0.00 - 0.04 x10(3)/[facility] LABORATORY Blood 10/31/2023 3:05 AM EDT 10/31/2023 3:13 AM EDT Narrative Resulting Agency Comment Spec In Lab Qamar Gallardo MD HEMATOLOGY ORDERABLE S [facility] [place] [address] * (ABNORMAL) Hemogram (10/31/2023 3:05 AM EDT) [...] [facility] NRBC% auto 0.0 % [facility] NRBC Absolute 0.000 0.000 - 0.000 x10(3)/mc L [facility] Blood 10/31/2023 3:05 AM EDT 10/31/2023 3:13 AM EDT Narrative Resulting Agency Comment Spec In Lab Qamar Gallardo MD HEMATOLOGY ORDERABLE S Performing Organization Address City/[facility]/ZIP Co de Phone Number [facility] [address] * (ABNORMAL) APTT (10/31/2023 3:05 AM EDT) [facility] Partial Thromboplastin Time 67(H) 25 - 37 [...] ORDERABL ES [facility] [address] * (ABNORMAL) Prothrombin Time (10/31/2023 3:05 AM [...] ORDERABL ES [facility] [place] [address] * (ABNORMAL) Differential, Automated (10/31/2023 1:37 AM EDT) Pathologist [facility] Neutrophil % 71.1 % [facility] Neutrophil Absolute 7.53(H) 1.70 - 6.10 x10(3)/mc L [facility] Lymph % 18.0 % [facility] Lymphocytes Abs 1.9 0.9 - 3.2 x10(3)/mc L [facility] Monocyte % 8.7 % [facility] Monocyte Abs 0.9 0.3 - 0.9 x10(3)/mc L [facility] Eos % 1.6 % [facility] Eosinophils Abs 0.2 0.0 - 0.4 x10(3)/mc L [facility] Basophil % 0.4 % [facility] [...] ORDERABLE S [facility] [place] [address] * (ABNORMAL) Hemogram (10/31/2023 1:37 AM EDT) [...] [facility] NRBC% auto 0.0 % [facility] NRBC Absolute 0.000 0.000 - 0.000 x10(3)/mc L [facility] Blood 10/31/2023 1:37 AM EDT 10/31/2023 1:46 AM EDT Narrative Resulting Agency Comment Spec In Lab Qamar Gallardo MD HEMATOLOGY ORDERABLE S [facility] [place] [address] * Phosphorus (10/31/2023 1:37 AM EDT) Phosphorus 3.2 2.5 - 4.5 mg/dL [facility] Blood 10/31/2023 1:37 AM EDT 10/31/2023 1:46 AM EDT Narrative Resulting Agency Comment Spec In Lab Rosa Cornejo MD CHEMISTRY ORDERABLE S Performing Organization Address City/[facility]/ZIP Co de Phone Number [facility] [place] [address] * Magnesium (10/31/2023 1:37 AM EDT) Magnesium 0.83 0.69 - 1.07 mmol/L [facility] Blood 10/31/2023 1:37 AM EDT 10/31/2023 1:46 AM EDT Narrative Resulting Agency Comment Spec In Lab Rosa Cornejo MD CHEMISTRY ORDERABLE S Performing Organization Address City/[facility]/ZIP Co de Phone Number [facility] [place] [address] * Basic Metabolic Panel (non-fasting) (10/31/2023 1:37 [...] ORDERABLE S [facility] [place] [address] * (ABNORMAL) Troponin (10/31/2023 1:37 AM EDT) [...] troponin value can be found in the [facility] Laboratory Test Catalog Troponin - [facility] Laboratory Test Catalog Reference: Fourth Bim Definition of Myocardial Infarction. Journal of the [employer] College [employer] 2018;72:8697-7888 Blood 10/31/2023 1:37 AM EDT 10/31/2023 1:46 AM EDT Narrative Resulting Agency Comment Spec In Lab Rosa Cornejo MD CHEMISTRY ORDERABLE S Performing Organization Address City/State/[facility] Co de Phone Number [facility] [place] [address] * EKG 12 Lead (10/31/2023 1:20 AM EDT) Ventricular rate 52 BPM MUSE SYSTEM Atrial Rate 52 BPM MUSE SYSTEM P-R Interval 224 ms MUSE SYSTEM QRS Duration 108 ms MUSE SYSTEM Q-T Interval 544 ms MUSE SYSTEM QTC Calculated (Bezet) 505 ms MUSE SYSTEM Calculated P Draper 90 degrees MUSE SYSTEM Calculated R Draper -57 degrees MUSE SYSTEM Calculated T Draper -63 degrees MUSE SYSTEM INTERPRETATION Sinus bradycardia with 1st degree A-V block Pulmonary disease pattern Left anterior fascicular block Moderate voltage criteria for LVH, may be normal variant ( R in aVL , [place] product ) T wave abnormality, consider inferior ischemia T wave abnormality, consider anterolateral ischemia Prolonged QT Abnormal ECG When compared with ECG of 30-OCT-2023 22:40, No significant change was found Confirmed by Butch Soto MD ([id number]) on 11/01/2023 8:58:03 PM MUSE SYSTEM 10/31/2023 1:20 AM EDT 11/01/2023 8:58 PM EDT Rosa Cornejo MD ECG ORDERABLES Performing Organization Address [facility] Co de Phone Number MUSE SYSTEM * EKG 12 Lead (10/30/2023 10:40 PM EDT) Ventricular rate 55 BPM MUSE SYSTEM Atrial Rate 55 BPM MUSE SYSTEM P-R Interval 232 ms MUSE SYSTEM QRS Duration 102 ms MUSE SYSTEM Q-T Interval 520 ms MUSE SYSTEM QTC Calculated (Bezet) 497 ms MUSE SYSTEM Calculated P Draper 75 degrees MUSE SYSTEM Calculated R Draper -53 degrees MUSE SYSTEM Calculated T Draper -57 degrees MUSE SYSTEM INTERPRETATION Sinus bradycardia [...] ECG ORDERABLES Performing Organization Address [facility] Co de Phone Number MUSE SYSTEM * XR Chest One View (10/30/2023 10:10 PM EDT) WORKSTATION ID [id number] [facility] Anatomical Region Laterality Modality Chest N/A Digital Radiogra phy Impressions 10/30/2023 10:32 PM EDT 1. ??Examination limited by low lung volumes. 2. ??Findings suggesting pulmonary vascular congestion with possible mild interstitial edema. 3. ??Known ascending aortic aneurysm, as seen on recent CT. 4. ??Nonspecific widening mediastinum. This can be secondary to magnification from portable technique and low lung volumes. Findings similar to supervisor covering and lining radiograph from CT 10/30/2023. Thank you for letting us participate in the care of this patient. ??If you are a health care provider and have any questions regarding this report, please contact the number below. ??For patients who have questions please contact the health hearing care professional that requested your imaging first. ? Electronically signed by: Wilson Mccartney MD, [facility] ([phone]), at 10/30/2023 10:32 PM Narrative 10/30/2023 10:32 [...] low lung volumes. Findings similar to supervisor covering and lining radiograph from CT 10/30/2023. Thank you for letting us participate in the care of this patient. If youare a health care provider and have any questions regarding this report,please contact the number below. For patients who have questions please contactthe health hearing care professional that requested your imaging first. Rosa Cornejo MD IMG DX ORDERABLES * Green Tube HOLD (10/30/2023 10:05 PM EDT) [facility] Green Hold Sample in lab. [facility] Blood Venous Draw / Unknown 10/30/2023 10:05 PM EDT 10/30/2023 10:13 PM EDT Qamar Gallardo MD CHEMISTRY ORDERABLES [facility] [place] [address] * (ABNORMAL) Differential, Automated (10/30/2023 10:05 PM EDT) Neutrophil % 76.6 % [facility] Neutrophil Absolute 6.94(H) 1.70 - 6.10 x10(3)/mc L [facility] Lymph % 15.4 % [facility] Lymphocytes Abs 1.4 0.9 - 3.2 x10(3)/mc L [facility] Monocyte % 6.1 % [facility] Monocyte Abs 0.6 0.3 - 0.9 x10(3)/mc L [facility] Eos % 1.1 % [facility] Eosinophils Abs 0.1 0.0 - 0.4 x10(3)/ L [facility] Basophil % 0.6 % [facility] [...] ORDERABLE S [facility] [place] [address] * (ABNORMAL) Hemogram (10/30/2023 10:05 PM EDT) [...] [facility] NRBC% auto 0.0 % [facility] NRBC Absolute 0.000 0.000 - 0.000 x10(3)/mc L [facility] Blood 10/30/2023 10:0 5 PM EDT 10/30/2023 10:12 PM EDT Narrative Resulting Agency Comment Spec In Lab Qamar Gallardo MD HEMATOLOGY ORDERABLE S [facility] [place] [address] * Hemoglobin A1c (10/30/2023 10:05 PM EDT) [...] Mellitus, Diabetes Care 2013; 36: Suppl. 1, S68-24 Estimated Average Glucose See note mg/dL [facility] Comment: Estimated Average Glucose not appropriate for patients over 70 years of age. Blood 10/30/2023 10:0 5 PM EDT 10/30/2023 10:12 PM EDT Narrative Resulting Agency Comment Spec In Lab Rosa Cornejo MD CHEMISTRY ORDERABLE S [facility] [place] [address] * Lipid Panel (Reflex Direct LDL) (10/30/2023 10:05 PM EDT) Cholesterol, Total 218 mg/dL [facility] Comment: Desirable: ? <200 mg/dL Borderline High: 200-239 mg/dL Higher: ?>bi=189 mg/dL Triglyceride 46 mg/dL [facility] Comment: Normal: ?<150 mg/dL Borderline High: 150-199 mg/dL High: ?200-499 mg/dL Very High: ? >le=199 mg/dL HDL Cholesterol 64 mg/dL [facility] Comment: Females: High Risk: <50 mg/dL Males: High Risk: <40 mg/dL LDL Cholesterol 145 mg/dL [facility] Comment: Desirable: ? <100 mg/dL Above Desirable: 100-129 mg/dL Borderline High: 130-159 mg/dL High: ?160-189 mg/dL Very High: ? >wl=709 mg/dL Lipid Interpretation See Note [facility] [...] be even lower. ACC/AHA Guidelines (most recently C[facility] 03/23/22): For individuals with atherosclerotic cardiovascular disease (ASCVD)or LDL >va=761 mg/dL, use a high-intensity statin (40-80 mg [...] ORDERABLE S [facility] [place] [address] * TSH [place] (10/30/2023 10:05 PM EDT) Thyroid Stimulating Hormone 3.35 0.27 - 4.20 mcIU/mL [facility] Comment: Reference Interval (mcIU/mL): Females: ??First Trimester: 0.23-3.88 ??Second Trimester: 0.22-3.90 ??Third Trimester: 0.44-4.66 Blood 10/30/2023 10:0 5 PM EDT 10/30/2023 10:12 PM EDT Narrative Resulting Agency Comment Spec In Lab Rosa Cornejo MD CHEMISTRY ORDERABLE S Performing Organization Address [facility] Co de Phone Number [facility] [place] [address] * pro-Brain Natriuretic Peptide (10/30/2023 10:05 PM EDT) NT-proBNP 375 <=449 pg/mL [facility] Blood 10/30/2023 10:0 5 PM EDT 10/30/2023 10:12 PM EDT Narrative Resulting Agency Comment Spec In Lab Rosa Cornejo MD CHEMISTRY ORDERABLE S Performing Organization Address [facility] Co de Phone Number [facility] [address] * (ABNORMAL) Comprehensive metabolic panel (non-fasting) (10/30/2023 [...] S [facility] [place] [address] * Phosphorus (10/30/2023 10:05 PM EDT) Phosphorus 3.3 2.5 - 4.5 mg/dL [facility] Blood 10/30/2023 10:0 5 PM EDT 10/30/2023 10:12 PM EDT Narrative Resulting Agency Comment Spec In Lab Rosa Cornejo MD CHEMISTRY ORDERABLE S [facility] [address] * Magnesium (10/30/2023 10:05 PM EDT) Magnesium 0.86 0.69 - 1.07 mmol/L [facility] Blood 10/30/2023 10:0 5 PM EDT 10/30/2023 10:12 PM EDT Narrative Resulting Agency Comment Spec In Lab Rosa Cornejo MD CHEMISTRY ORDERABLE S Performing Organization Address [facility] Co de Phone Number [facility] [place] [address] * (ABNORMAL) Troponin (10/30/2023 10:05 PM EDT) [...] troponin value can be found in the [facility] Test Catalog Troponin - [facility] Test Catalog Reference: Fourth Bim Definition of Myocardial Infarction. Journal of the [place] College of [employer]iology 2018;72:7217-7348 Blood 10/30/2023 10:0 5 PM EDT 10/30/2023 10:12 PM EDT Narrative Resulting Agency Comment Spec In Lab Rosa Cornejo MD CHEMISTRY ORDERABLE S Performing Organization Address City/[facility]/ZIP Co de Phone Number [facility] [place] [address] * EKG 12 Lead (10/30/2023 8:21 PM EDT) Ventricular rate 49 BPM MUSE SYSTEM Atrial Rate 49 BPM MUSE SYSTEM P-R Interval 230 ms MUSE SYSTEM QRS Duration 96 ms MUSE SYSTEM Q-T Interval 526 ms MUSE SYSTEM QTC Calculated (Bezet) 475 ms MUSE SYSTEM Calculated P Draper 98 degrees MUSE SYSTEM Calculated R Draper -48 degrees MUSE SYSTEM Calculated T Draper -51 degrees MUSE SYSTEM INTERPRETATION Sinus bradycardia with 1st degree A-V block Incomplete right bundle branch block Left anterior fascicular block Moderate voltage criteria for LVH, may be normal variant ( R in aVL , [place] product ) T wave abnormality, consider inferior [...] (1 mg/mL) multi-dose injection PRN, Starting on Darden 10/30/23 at 1745, Until Darden 10/30/23 at 2208, Intra-Operative (Intra-Procedure), Routine Given 10/30/2023 7:39 PM EDT 0.5 mg Given 10/30/2023 5:45 PM EDT 0.5 mg nitroGLYcerin 100 mcg/mL intracoronary dilution PRN, Starting on Darden 10/30/23 at 1728, Until Darden 10/30/23 at 2208, Intra-Operative (Intra-Procedure), Routine Given [...] chloride 0.9% infusion CONTINUOUS PRN, Starting on Darden 10/30/23 at 2017, Until Darden 10/30/23 at 2208, Intra-Operative (Intra-Procedure) New Bag 10/30/2023 [...] 10/30/23 at 1728, Until 10/30/23 at 2208, Administer over 2 Minutes, Intra-Operative [...] Sweeney, TANESHA)2019 (Given - Provider: Danica Shipley, TANESHA) 1730 (Given - Provider: Mary Sweeney RN) [...] RN)2019 (Given - Provider: Danica Shipley RN) 0937 [...] 0817 (Given - Provider: Lucretia Thurman RN) magnesium sulfate 1 g in dextrose [...] last 24 to 72 hours., Routine 1333 ([facility] Hold - Provider: Admin Adt - Reason: Transfer to a Procedural area)1548 ([facility] Unhold - Provider: Admin Adt) sodium chloride 0.9 % (flush) (BD PosiFlush Normal Saline 0.9) flush 5-20 mL 5-20 mL, Intravenous, EVERY 1 MIN PRN, Starting on 10/30/23 at 2208, Until Amna 11/03/23 at 1913, flush, Flush pertains to all indwelling lines. Flush per protocol found in the job aid using the link provided on this medication record., Routine 1333 ([facility] Hold - Provider: Admin Adt - Reason: Transfer to a Procedural area)1548 ([facility] Unhold - Provider: Admin Adt) documented in this encounter Additional Health Concerns Infection Onset Date Last Indicated Resolved Time Rule Out Respiratory 11/02/2023 11/02/2023 024 12:22 PM EDT Rule Out COVID-19 11/02/2023 11/02/2023 11/02/2023 12:22 PM EDT documented as of this encounter Care Teams Forward Air Controller/Air Officer Relationship Specialty Start Date End Date Rosie Mathews MD [address] [place] [id number] PCP - General Family Medicine 11/25/17 11/23/23 documented as of this encounter
--- OUTSIDE RECORDS SUMMARY | 2024-07-25 15:46 | XMS_ITS | Encounter Summary ---
Author Organization [facility] Address [address] [place] [address] Care Team Providers Care Roller Cleaner Name Role Phone Unavailable Primary Care Provider Unavailabl e Encounter Details Date Type Department Care Team (Late st Contact Info) Description 01/27/2021 Lab Requisition [facility] Pathology & Laboratory Medicine - [facility] [address] [place] [address] Outr Resulting Lab, Provider Social History Tobacco Use Types Packs/Day Years Used Date Smoking Tobacco: Never Alcohol Use Standard Drinks/Week Comments No 0 (1 standard drink = 0.6 oz pur e alcohol) Comments Unknown Sex and Gender Information Value Date Recorded Sex Assigned at Not on file Legal Sex Female 18:17 EST Gender Identity Not on file Sexual Orientation [...] Unknown 01/26/2021 16:45 EDT 01/27/2021 15:46 EDT us Provider Outr Resulting Lab MICROBIOLOGY - GENER AL ORDERABLES Final Result [facility] [address] [place] [address] * COVID-19 TESTING (01/26/2021 16:45 EDT) COVID-19 rt-PCR Result Negative Negative 01/28/2021 13:31 EDT [facility] Comment: This test has not [...] developed and its performance characteristics determined by [facility]. It has not been cleared or [...] testing. This test is based on the [facility] COVID-19 Emergency Use Authorization (EUA) assay, with minor modification as defined by the FDA Performed on the [employer] 7 Pro RT-PCR System. Performing Lab [facility] Lab 01/28/2021 13:31 EDT [facility] Swab 01/26/2021 16:4 5 EDT 01/27/2021 15:46 EDT us Provider Outr Resulting Lab MICROBIOLOGY - GENER AL ORDERABLES Final Result [facility] [address] [place] [address] documented in this encounter Visit Diagnoses Not on filedocumented in this encounter
--- OUTSIDE RECORDS SUMMARY | 2024-07-25 15:46 | XMS_ITS | Encounter Summary ---
Author Organization [facility] Address [address] [place] [address] Care Team Providers Care Market Consultant Name Role Phone Unavailable Primary Care Provider Unavailabl e Reason for Visit * Reason Comments Hearing Loss tinnitus Encounter Details Date Type Department Care Team (Latest Contact Info) Description 01/15/2010 10:10 EDT Office Visit [facility] ENT - [place] [address] [place] [address] Unknown, Provider, Ray Orosco MD [address] [place] [address] [address] [place] [address] Sensorineural hearing loss, bilateral; Subjective [...] Ray Farooq MD - 01/28/2010 1108 EDT [facility] PROGRESS/FOLLOWUP NOTE - 01/15/2010 CHIEF COMPLAINT: [...] Farooq MD - Ray Farooq MD - [facility] [place] Job ID: SM Doc ID: [id number] Ext Doc ID: [id number] cc: Kirsten Bateman MD * Ray Farooq [...]
--- OUTSIDE RECORDS SUMMARY | 2024-07-25 15:46 | XMS_ITS | Clinical Summary ---
Author Organization [facility] Address [address] [place] [address] Care Team Providers Care Piece Dyeing Machine Tender Name Role Phone Unavailable Primary Care Provider Unavailabl e Allergies Active Allergy Reactions Criticality Noted Date Comments Cortisone 01/14/2010 Hydrocodone 01/14/2010 Oxycodone-Acetaminophen 01/14/2010 Medications SIMVASTATIN ORAL Take by mouth. Active ATENOLOL ORAL Take by mouth. Active AMITRIPTYLINE HCL (AMITRIPTYLINE ORAL) Take by mouth. Active ASPIRIN ORAL Take by mouth. Active VITAMIN E ACETATE (VITAMIN E ORAL) Take by mouth. Active ASCORBIC ACID (VITAMIN C ORAL) Take by mouth. Active CYANOCOBALAMIN (VITAMIN B-12 ORAL) Take by mouth. Active PALM OIL/COCONUT OIL (FATTY ACID BASE MISC) by Misc.(Non-Dr ug; Combo Route) route. EPA Active CALCIUM CARBONATE (CORAL CALCIUM ORAL) Take by mouth. COMPLEX Active POTASSIUM CHLORIDE ORAL Take by mouth. Active VALSARTAN (DIOVAN ORAL) Take by mouth. Active Active Problems Problem Noted Date Diagnosed Date Hearing loss 01/14/2010 Sensorineural hearing loss 01/14/2010 Overview (01/14/2010): BILATERAL Surgical History Surgery Date Site/Laterality Comments [...] Health Maintenance Due Date Last Done Comments Fall Risk Screening 2004 RSV Immunization ( o r 60+ Years) (1 - 1-dose 75+ series) 2014 COVID-19 Vaccine (2023- season) 2024
--- OUTSIDE RECORDS SUMMARY | 2024-07-25 15:46 | XMS_ITS | Encounter Summary ---
Author Organization [facility] Address [address] [place] [address] Care Team Providers Care Slotter Operator Name Role Phone Unavailable Primary Care Provider Unavailabl e Encounter Details Date Type Department Care Team (Late st Contact Info) Description 01/10/2008 Before PRISM Converted Visit (Maple) [facility] - Maple conversion [address] [place] [address] Ray Farooq MD [address] [place] [phone] Social History Tobacco Use Types Packs/Day Years Used Date Smoking Tobacco: Never Assessed Comments Unknown Sex and Gender Information Value Date Recorded Sex Assigned at Not on file Legal Sex Female 18:17 EST Gender Identity Not on file Sexual Orientation Not on file documented as of this encounter Consult Notes * Ray Farooq MD - 03/21/2009 1170 EDT [facility] - 01/10/2008 Kirsten Bateman MD [facility] [address] [place] [address] Bateman: Chief complaint: Hearing loss. History of present illness: Jrnok[age]iguno-zxzu-old female with along history of bilateral hearing [...] aspirin, vitamin E, C, B12, B125 complex, [place], EPA fatty acid, coral calcium complex, potassium chloride, Diovan, and hormone essentials. She has drug allergies to cortisone, Percocet, and hydrocodone. Family history is significant for cancer. Social history: The patient is a nonsmoker, nondrinker. She lives in [place]. Review of systems is significant for allergies, [...] Farooq MD - Tosin Farooq MD - [facility] Job ID: [id number] Doc ID: [id number] cc: Kirsten Bateman MD cc: Kirsten Bateman MD documented in this encounter Plan of Treatment Not on file documented as of this encounter Visit Diagnoses Not on filedocumented in this encounter
--- OUTSIDE RECORDS SUMMARY | 2024-07-25 15:46 | XMS_ITS | Encounter Summary ---
Author Organization [facility] Address [facility] [place] [address] Care Team Providers Care Inletter Name Role Phone Rosie Mathews MD Primary Care Provider [phone] Reason for Visit * Reason Comments Skin Lesion * Consultation (Routine) - Closed Specialty Diagnoses / Procedures Referred By Contac t Referred To Contact Dermatology Diagnoses facial skin lesion Procedures pt would like to be seen PRADEEP Rosie Mathews MD [address] [place] [address] [facility] [address] [place] [address] Referral ID Status Reason Start Date Expiration Date V isits Requested Visits Authorized [id number] Closed Consult, Test & Treat Connection Center 10/25/2017 10/25/2018 1 1 Encounter Details Date Type Department Care Team (Late st Contact Info) Description 11/25/2017 4:30 PM EDT Office Visit Dermatology at [facility] [address] [place] [address] Call, Radu Go MD [facility] [address] [place] [address] Seborrheic keratosis; Fibrous papule of [...] Radu Tom MD Resident in Dermatology [facility] Patient seen in conjunction with staff box icer: Terri Hale MD Section of Dermatology [facility] * Terri Hale MD - 11/25/2017 [...] PM EST Office Visit Cardiology at [address] [place] [address] Izaiah Meyer MD [facility] [place] [address] 08/09/2024 10:00 AM EST Hospital Encounter Non-[place] [address] Arrived documented as of this encounter Visit Diagnoses Diagnosis Seborrheic keratosis Other seborrheic keratosis Fibrous papule of nose Benign neoplasm of skin of other and unspecified parts of face Skin tags, multiple acquired documented in this encounter Care Teams Inletter Relationship Specialty Start Date End Date Rosie Mathews MD [address] [place] [address] PCP - General Family Medicine 11/25/17 11/23/23 documented as of this encounter
--- OUTSIDE RECORDS SUMMARY | 2024-07-25 15:46 | XMS_ITS | Referral Summary ---
Author Organization [facility] Address [address] [facility] [place] [address] Care Team Providers Care Bill Of Lading Clerk Name Role Phone Unavailable Primary Care Provider [...] Sensorineural hearing loss 01/14/2010 Overview (01/14/2010): BILATERAL Social History Tobacco Use Types Packs/Day [...]
--- OUTSIDE RECORDS SUMMARY | 2024-07-25 15:46 | XMS_ITS | Encounter Summary ---
Author Organization [facility] Address [address] [place] [address] Care Team Providers Care Surfacing Machine Operator Name Role Phone Unavailable Primary Care Provider Unavailabl e Encounter Details Date Type Department Care Team (Late st Contact Info) Description 01/14/2010 Abstract Used for ABSTRACTING Data [phone] Kirsten Bateman MD Social History Tobacco Use [...] may reflect changes made after this encounter. VALSARTAN (DIOVAN ORAL) Take by mouth. POTASSIUM CHLORIDE ORAL Take by mouth. CALCIUM CARBONATE (CORAL CALCIUM ORAL) Take by mouth. COMPLEX PALM OIL/COCONUT OIL (FATTY ACID BASE MISC) by Misc.(Non-Drug ; Combo Route) route. EPA CYANOCOBALAMIN (VITAMIN B-12 ORAL) Take by mouth. ASCORBIC ACID (VITAMIN C ORAL) Take by mouth. VITAMIN E ACETATE (VITAMIN E ORAL) Take by mouth. ASPIRIN ORAL Take by mouth. AMITRIPTYLINE HCL (AMITRIPTYLINE ORAL) Take by mouth. ATENOLOL ORAL Take by mouth. SIMVASTATIN ORAL Take by mouth. added in this encounter
--- OUTSIDE RECORDS SUMMARY | 2024-07-25 15:46 | XMS_ITS | Encounter Summary ---
Author Organization [facility] Address [facility] [place] [address] Care Team Providers Care Bomb Squad Commander Name Role Phone Rosie Mathews MD Primary Care Provider [phone] Reason for Visit * Consultation (Routine) - Closed Specialty Diagnoses / Procedures Referred By John hunt Referred To Contact Audiology Diagnoses Hearing assessment and treatment options Karson John MD [address] [place] [address] [facility] Audiology [address] [place] [phone] Referral ID Status Reason Start Date Expiration Date V isits Requested Visits Authorized [id number] Closed Consult, Test & Treat Connection Center 11/22/2017 11/22/2018 1 1 Encounter Details Date Type Department Care Team (Latest Contact Info) Description 11/30/2017 3:15 PM EDT Office Visit Audiology at [address] [address] Georgette Onofre [facility] [place] [address] Sensorineural hearing loss, bilateral; Bilateral [...] Healthcare in-the-ear hearingaids nine years ago in [place], [place]. She stated she continues to experience [...] tone audiogram. SNR loss is the increased iiqybl-ue-lvshp ratio required by an individual to understand [...] not hesitate to contact this Section at [phone] if there are questions regarding this report or its recommendations[place] [address] Attachment: audiogram CC: MD Karson Loo MD Lyla Goodrich [address] [place], [place] [address] [place] [phone] documented in this encounter Plan of Treatment Upcoming Encounters Date Type Department Care Team (Late st Contact Info) Description 08/07/2024 1:00 PM EST Office Visit Cardiology at [address] [place] [address] Izaiah Meyer MD [facility] [place] [address] 08/09/2024 10:00 AM EST Hospital Encounter Non-Invasive Cardiology Lab [address] [place] [address] Arrived documented as of this encounter Procedures Procedure Name Priority Date/Time Associated Diagnosis Comments COMPREHENSIVE HEARING TEST Routine 11/30/2017 3:17 PM EDT documented in this encounter Results * Comprehensive hearing test (11/30/2017 3:17 PM EDT) 11/30/2017 3:17 PM EDT Unknown AUDIOLOGY SERVICES O RDERABLES Performing Organization Address City/State/[place] Co de Phone Number [employer] documented in this encounter Visit Diagnoses Diagnosis Sensorineural hearing loss, bilateral Bilateral tinnitus documented in this encounter Care Teams Bomb Squad Commander Relationship Specialty Start Date End Date Rosie Mathews MD [address] [place] [address] PCP - General Family Medicine 11/25/17 11/23/23 documented as of this encounter
== END 2024-07-25 15:41 | disposition home or self-care (01) ==
LOC: NCHCN 15:40
PROVIDERS: PCP Family Medicine; Visit Provider Family Medicine
DX: R53.83 Other fatigue (principal); I25.10 Atherosclerotic heart disease of native coronary artery without angina pectoris
CPT/HCPCS: 80053; 84443; 85025

== ENCOUNTER 2024-08-07 20:52 | Emergency (ER) | payer MEDICARE, SELFPAY ==
[2024-08-07] VITALS (23 sets, daily range): BP systolic 106–139; BP diastolic 39–65; PULSE 61–115; RESP 13–38; TEMP 36.9–37.7; O2SAT 91–97
--- NOTE | 2024-08-07 20:45 | RT.EKG_ITS ---
APPROVED REPORT Exam: Resting ECG Reason for Exam: SOB Patient Location: E HR:110 bpm ECG Measurements Heart Rate 110 AXIS DC 141 P -31 QRSd 88 QRS -52 QT 322 T 110 QTc 435 Conclusion Sinus tachycardia...rate> 99 Inferior infarct, old...Q >35mS, II III aVF Consider anterior infarct...Q >30mS in V2-V5 Nonspecific T abnormalities, lateral leads...T <-0.10mV, I aVL V5 V6 No STEMI
--- NOTE | 2024-08-07 21:08 | ED.GENADUL_ITS ---
Discharge Plan Disposition Patient Disposition: Home Condition: Stable Discharge Details Clinical Impression: Acute UTI Primary Care Provider: Masood Pierson ED Provider: Tracee Danielle Home Meds and New Rx's Prescriptions: New cephalexin 500 mg tablet 500 mg PO BID 10 Days Qty: 20 0RF Continued ascorbate calcium (vitamin C) 500 MG tablet 1 tab PO DAILY aspirin 81 MG tablet,chewable 1 tab PO DAILY vitamin B complex [B-Complex] 1 EACH tablet 1 tab PO DAILY clopidogrel 75 mg tablet 75 mg PO DAILY nitroglycerin 0.4 mg tablet, sublingual 0.4 mg sublingual Q5M losartan 50 mg tablet 50 mg PO DAILY Patient Comments: TAKE ONE TABLET BY MOUTH EVERY DAY oxybutynin chloride 5 mg tablet 5 mg PO DAILY Patient Comments: TAKE ONE TABLET BY MOUTH AT BEDTIME NEEDED atorvastatin 80 mg tablet 80 mg PO DAILY spironolactone 25 mg tablet 25 mg PO DAILY metoprolol succinate 25 mg tablet extended release 24 hr 12.5 mg PO DAILY Discharge Instructions Instructions: Urinary Tract Infection, Adult ED Additional Instructions: It appears you have a urinary tract infection which would be the cause of your fever and chills. Please take the antibiotic twice daily with yogurt or probiotic as directed. Please take Tylenol or Ibuprofen with food every 4-6 hours as needed for fever. Follow up with primary care provider in 3-5 days. Return to ED sooner if any worsening fever, fatigue, vomiting or concerns. Thank you for allowing us to care for you today. Negative for COVID flu RSV no evidence of pneumonia no evidence of heart problems today. Referrals: Masood Pierson MD [Primary Care Provider] - 5 days HPI General Mode of arrival: EMS . Date/Time Provider Initiated Documentation: 08/07/24 20:56 . Limitations to Documentation: no limitations . Information obtained by: patient, EMS, RN notes reviewed and old records reviewed . HPI Narrative: 83-year-old female presents to the ER via EMS with a chief complaint of fever, tachycardia and shaking which occurred earlier prior to arrival while at dinner. EMS reports that heart rate was in the 130s was given 500 cc normal saline bolus and 1 g of Tylenol IV piggyback. Patient does have a history of hypertension, history of OR CAD she denies any chest pain abdominal pain nausea vomiting diarrhea. She denies any dysuria. She is endorsing just a mild headache. Other past medical history include aortic arch aneurysm, hyperlipidemia first-degree AV block, also of note she does have some dried blood around her mouth and has reported that she has these viral canker sores in her mouth which she was told to swish and spit with Benadryl and Maalox by her PCP. Which she has been doing. She denies any vomiting blood. Denies any cough. Related Data Home Medications ?Medication ?Instructions ?Recorded ?Confirmed ascorbate calcium (vitamin C) 500 1 tab PO DAILY 11/25/14 08/07/24 mg tablet aspirin 81 mg chewable tablet 1 tab PO DAILY 11/25/14 08/07/24 vitamin B complex (B-Complex 1 tab PO DAILY 11/25/14 08/07/24 tablet) losartan 50 mg tablet 50 mg PO DAILY 02/12/22 08/07/24 oxybutynin chloride 5 mg tablet 5 mg PO DAILY 02/12/22 08/07/24 clopidogrel 75 mg tablet 75 mg PO DAILY 11/18/23 08/07/24 nitroglycerin 0.4 mg sublingual 0.4 mg sublingual Q5M 11/18/23 08/07/24 tablet atorvastatin 80 mg tablet 80 mg PO DAILY 02/24/24 08/07/24 metoprolol succinate 25 mg 12.5 mg PO DAILY 02/24/24 08/07/24 tablet,extended release 24 hr spironolactone 25 mg tablet 25 mg PO DAILY 02/24/24 08/07/24 cephalexin 500 mg tablet 500 mg PO BID 10 days #20 tabs 08/07/24 Previous Rx's ?Medication ?Instructions ?Recorded cephalexin 500 mg tablet 500 mg PO BID 10 days #20 tabs 08/07/24 Allergies Allergy/AdvReac Type Severity Reaction Status Date / Time hydrocodone Allergy Intermediate Itching Unverified 04/24/24 17:14 oxycodone HCl (From Percocet) Allergy Intermediate Itching Unverified 04/24/24 17:14 prednisone Allergy Intermediate Swelling/Ed Unverified 04/24/24 17:14 acosta lisinopril Allergy Mild Other (See Verified 04/24/24 17:14 Comment) General Stated Complaint: RespSymp BRADLEY: 3 Review of Systems All systems reviewed & are unremarkable except as noted in HPI and below Constitutional Constitutional: Reports as per HPI, Reports body ache(s), Reports chills, Reports fever(s) and Reports headache(s) ENT Ears, Nose, Mouth, and Throat: Reports headache(s) Cardiovascular Cardiovascular: Denies chest pain and Denies dyspnea Respiratory Respiratory: Denies cough and Denies dyspnea Gastrointestinal Gastrointestinal: Denies abdominal pain and Denies vomiting Neurologic Neurologic: Reports headache(s) Exam Narrative Exam Narrative: Constitutional: Alert and oriented x3. Appears stated age. Normal body habitus. Head: Normocephalic, no trauma. Eyes: Pupils PERRL, Red reflex noted, EOM's intact. Eyelids symmetrical without lesions, discharge, or swelling. ENT: Bilateral TM's WNL, External ear normal to inspection, no mastoid TTP, swelling, or erythema, Nasal turbinates WNL, no nasal discharge. Normal dentition, Posterior pharynx WNL, no exudate. Chest: RRR, Normal S1, S2, distal pulses intact. Resp: Lungs clear to auscultation bilaterally, no wheezes, rales, or rhonchi. Abdomen: Soft, non-distended, Normoactive bowel sounds all 4 quads. Musculoskeletal: Normal gait, Moves all 4 extremities without difficulty. Skin: No suspicious rashes or lesions. Capillary refill less than 2 sec. Neurologic: Cranial nerves II-XII intact. Alert and oriented x 3. Motor: No deficits noted. Sensory: Intact bilaterally all 4 extremities. Hematologic/Lymphatic: No ecchymosis, no lymphadenopathy. Course Vital Signs Vital signs: Vital Signs Temperature 37.7 C H 08/07/24 20:51 Pulse 110 H 08/07/24 20:51 Respiratory Rate 34 H 08/07/24 20:51 Blood Pressure 106/43 L 08/07/24 20:51 Pulse Oximetry 92 08/07/24 20:51 Temperature 37.7 C H 08/07/24 20:51 Temperature Source Oral 08/07/24 20:51 Pulse 110 H 08/07/24 20:51 Respiratory Rate 34 H 08/07/24 20:51 Blood Pressure 106/43 L 08/07/24 20:51 Blood Pressure Position Supine 08/07/24 20:51 Pulse Oximetry 92 08/07/24 20:51 Oxygen Delivery Method Room Air 08/07/24 20:51 Oxygen Flow Rate 0 08/07/24 20:51 Lab/Test Results Lab/Test Results: 08/07/24 20:58 Blood Blood Culture - Pending 08/07/24 20:58 Blood Blood Culture - Pending Medical Decision Making 83-year-old female presents to the ER via EMS with a chief complaint of fever, tachycardia and shaking which occurred earlier prior to arrival while at dinner. EMS reports that heart rate was in the 130s was given 500 cc normal saline bolus and 1 g of Tylenol IV piggyback. Patient does have a history of hypertension, history of [place] CAD she denies any chest pain abdominal pain nausea vomiting diarrhea. She denies any dysuria. She is endorsing just a mild headache. Other past medical history include aortic arch aneurysm, hyp erlipidemia first-degree AV block, also of note she does have some dried blood around her mouth and has reported that she has these viral canker sores in her mouth which she was told to swish and spit with Benadryl and Maalox by her PCP. Which she has been doing. She denies any vomiting blood. Denies any cough. Workup ordered including CBC CMP troponin, Fluvid swab urinalysis chest x-ray. Patient has a 17,000 white count, absolute neutrophils 15.81, lactate within normal limits at 1.7, creatinine 1.3 GFR 40.5 calcium slightly low at 8.0 initial troponin is 18 patient has no chest pain. Negative for COVID flu and RSV. Chest x-ray shows no pneumonia slight cardiomegaly no infiltrates. Awaiting urinalysis. Urinalysis shows positive nitrites trace leukocytes culture is pending at this time. Will give Rocephin IV piggyback 1 g and cephalexin 500 mg twice a day for 10 days. Discussed results with patient and daughter who verbalized understanding. All their questions were answered to the best my ability. This text was generated using [employer] system, please disregard any oddities of phrase or misspellings. Medical Records Medical records reviewed: Yes I reviewed the patient's medical records. Imaging Data Radiologic Study: Imaging: X-Ray Radiologist's impression: TECHNIQUE: Imaging protocol: Radiologic exam of the chest. Views: 2 views. COMPARISON: CT CHEST PE CTA 02/24/2024 9:45 PM FINDINGS: Tubes, catheters and devices: Left subclavian pacemaker leads are identified with their tips in the right atrium and right ventricle respectively. Lungs: Unremarkable. No consolidation. Pleural spaces: Unremarkable. No pleural effusion. No pneumothorax. Heart/Mediastinum: Heart is slightly enlarged. Bones/joints: Right shoulder prosthesis identified in good position. IMPRESSION: No acute infiltrates. Thank you for allowing us to participate in the care of your patient. Dictated and Authenticated by: Tej Whitaker MD Lab Data Lab results reviewed: Yes I reviewed the patient's lab results. Labs: 08/07/24 21:05 Blood Blood Culture - Pending 08/07/24 21:00 Blood Blood Culture - Pending Laboratory Tests Range/Units 08/07/24 08/07/24 08/07/24 21:00 21:28 21:59 WBC (4.4-10.8) 10^3/uL 17.22 H RBC (3.93-5.22) 10^6/uL 3.49 L Hgb (11.2-15.7) g/dL 11.8 Hct (36.0-46.0) % 34.7 L MCV (80-95) fL 99 H MCH (27.0-33.0) pg 33.8 H MCHC (32.0-36.0) % 34.0 RDW (11.7-14.6) % 13.5 Plt Count (130-400) 10^3/uL 267 MPV (8.0-11.0) fL 10.5 Immature Gran % % 0.5 Neutrophils % % 91.8 Lymphocytes % % 3.9 Monocytes % % 3.1 Eosinophils % % 0.4 Basophils % % 0.3 Nucleated RBC % (0.0-0.3) % 0.0 Absolute Neutrophils (1.2-6.7) 10^3/uL 15.81 H Absolute Lymphocytes (1.2-3.4) 10^3/uL 0.67 L Absolute Monocytes (0.1-0.8) 10^3/uL 0.53 Absolute Eosinophils (0.0-0.7) 10^3/uL 0.07 Absolute Basophils (0.0-0.2) 10^3/uL 0.05 VBG Lactate (<or=2.0) mmol/L 1.7 Sodium (136-145) mmol/L 138 Potassium (3.5-5.1) mmol/L 3.7 Chloride (98-107) mmol/L 104 Carbon Dioxide (21.0-32.0) mmol/L 26.2 Anion Gap (3-11) mmol/L 7.8 BUN (7-18) mg/dL 16 Creatinine (0.55-1.02) mg/dL 1.3 H Est GFR (CKD-EPI 2020) (mL/min/1.73m2) 40.55 Glucose (74-106) mg/dL 126 H Calcium (8.5-10.1) mg/dL 8.0 L Total Bilirubin (0.2-1.0) mg/dL 0.64 AST (15-37) U/L 19 ALT (14-59) U/L 23 Alkaline Phosphatase (46-116) U/L 68 Troponin I (<or=51) ng/L 18 Cancelled Total Protein (6.4-8.2) g/dL 6.9 Albumin (3.4-5.0) g/dL 2.7 L COVID-19 Source Nasopharynx SARS-CoV-2 (PCR) (Negative) Negative Influenza Type A (PCR) (Negative) Negative Influenza Type B (PCR) (Negative) Negative RSV (PCR) (Negative) Negative Range/Units 08/07/24 23:59 WBC (4.4-10.8) 10^3/uL RBC (3.93-5.22) 10^6/uL Hgb (11.2-15.7) g/dL Hct (36.0-46.0) % MCV (80-95) fL MCH (27.0-33.0) pg MCHC (32.0-36.0) % RDW (11.7-14.6) % Plt Count (130-400) 10^3/uL MPV (8.0-11.0) fL Immature Gran % % Neutrophils % % Lymphocytes % % Monocytes % % Eosinophils % % Basophils % % Nucleated RBC % (0.0-0.3) % Absolute Neutrophils (1.2-6.7) 10^3/uL Absolute Lymphocytes (1.2-3.4) 10^3/uL Absolute Monocytes (0.1-0.8) 10^3/uL Absolute Eosinophils (0.0-0.7) 10^3/uL Absolute Basophils (0.0-0.2) 10^3/uL VBG Lactate (<or=2.0) mmol/L Sodium (136-145) mmol/L Potassium (3.5-5.1) mmol/L Chloride (98-107) mmol/L Carbon Dioxide (21.0-32.0) mmol/L Anion Gap (3-11) mmol/L BUN (7-18) mg/dL Creatinine (0.55-1.02) mg/dL Est GFR (CKD-EPI 2020) (mL/min/1.73m2) Glucose (74-106) mg/dL Calcium (8.5-10.1) mg/dL Total Bilirubin (0.2-1.0) mg/dL AST (15-37) U/L ALT (14-59) U/L Alkaline Phosphatase (46-116) U/L Troponin I (<or=51) ng/L Cancelled Total Protein (6.4-8.2) g/dL Albumin (3.4-5.0) g/dL COVID-19 Source SARS-CoV-2 (PCR) (Negative) Influenza Type A (PCR) (Negative) Influenza Type B (PCR) (Negative) RSV (PCR) (Negative) Quality:SDOH Health Related Social Needs: Health related social needs details pt reports she has nt been sick in 2- years. reports [place] [facility] [place] a cold. PFSH All Active Problems (Updated 08/07/24 @ 23:04 by Tracee Danielle NP) Acute UTI (Acute) Hypertension (Chronic) Bradycardia (Chronic) Headache (Acute) Mechanical low back pain (Acute) Spinal stenosis of lumbar region (Acute) Lumbar spondylosis (Acute) Tachyarrhythmia (Acute) Tinnitus, bilateral (Acute) Sensorineural hearing loss of both ears (Acute) Medical History Neck pain First degree AV block Stress incontinence Hyperlipidemia Hematemesis Piriformis syndrome Hypertension Aortic arch aneurysm CAD (coronary artery disease), [place] coronary artery Surgical History History of rotator cuff surgery S/P KALLI-BSO Family History Mother Hypertension Stroke Heart disease Social History Smoking/Tobacco Use Status: Former Tobacco Use Smoking risk assessment performed?: Yes Alcohol Intake: never Drug use: Never Substance use type: does not use Housing: apartment Do you feel safe at home: Yes Do you feel safe in your relationship?: Yes
[2024-08-07 21:21] LABS: Abs Immature Grans 0.09 10^3/uL (0.0-0.06); Absolute Basophil Count 0.05 10^3/uL (0.0-0.2); Absolute Eosinophil Count 0.07 10^3/uL (0.0-0.7); Absolute Monocyte Count 0.53 10^3/uL (0.1-0.8); Basophils % 0.3 %; Eosinophils % 0.4 %; HCT 34.7 % (36.0-46.0); HGB 11.8 g/dL (11.2-15.7); Immature Grans % 0.5 %; Lymphocytes % 3.9 %; MCH 33.8 pg (27.0-33.0); MCV 99 fL (80-95); MPV 10.5 fL (8.0-11.0); Monocytes % 3.1 %; Neutrophils % 91.8 %; Platelet Count 267 10^3/uL (130-400); RBC 3.49 10^6/uL (3.93-5.22); RDW 13.5 % (11.7-14.6); RDW-SD 49.5 fL; WBC 17.22 10^3/uL (4.4-10.8)
[2024-08-07] MEDS: Normal Saline 250 ML IV (21:23)
[2024-08-07 21:26] LABS: Absolute Lymphocyte Count 0.67 10^3/uL (1.2-3.4); Absolute Neutrophil Count 15.81 10^3/uL (1.2-6.7)
[2024-08-07 21:30] LABS: ALT 23 U/L (14-59); AST 19 U/L (15-37); Albumin 2.7 g/dL (3.4-5.0); Alkaline Phosphatase 68 U/L (46-116); Anion Gap 7.8 mmol/L (3-11); BUN 16 mg/dL (7-18); Bilirubin, Total 0.64 mg/dL (0.2-1.0); CO2 26.2 mmol/L (21.0-32.0); CREATININE 1.3 mg/dL (0.55-1.02); Chloride 104 mmol/L (98-107); Estimated GFR 40.55 (mL/min/1.73m2); Glucose 126 mg/dL (74-106); Potassium 3.7 mmol/L (3.5-5.1); Sodium 138 mmol/L (136-145); Total Protein 6.9 g/dL (6.4-8.2)
[2024-08-07 21:33] LABS: Lactate 1.7 mmol/L (<or=2.0)
[2024-08-07 21:33] LABS: Troponin I 18 ng/L (<or=51)
--- NOTE | 2024-08-07 21:52 | DI.RAD_ITS ---
Exam(s) XR CHEST 2V PA LATERAL EXAM: XR CHEST 2V PA LATERAL CLINICAL HISTORY: Fever, TECHNIQUE: 2D digital imaging was performed of the chest. Two images were obtained. AP and lateral views were obtained. COMPARISON: CR XR CHEST 2V PA LATERAL from 09/23/2023 CR XR PORTABLE CHEST AP from 02/24/2024 FINDINGS: There is poor inspiration. MEDIASTINUM: Normal. HEART: Normal. Since the prior examination there has been interval placement of a dual lead pacing de vice. PULMONARY VASCULATURE: Normal. LUNGS: Clear. PLEURAL SPACE: No pleural effusion or pneumothorax. BONE:Within normal limits for the patient's age. There again seen findings of a right reverse total shoulder arthroplasty and orthopedic anchors in the left humeral head. OTHER FINDINGS:Normal. IMPRESSION: No acute pulmonary findings. DATA REPOSITORY: RADIATION DOSE DELIVERED:
[2024-08-07 21:59] LABS: COVID-19 PCR Negative (Negative); Influenza A PCR Negative (Negative); Influenza B PCR Negative (Negative); RSV PCR Negative (Negative)
[2024-08-07 22:02] LABS: Source Nasopharynx
--- NOTE | 2024-08-07 22:17 | DI.VRAD_ITS ---
PROCEDURE INFORMATION: Exam: XR Chest Exam date and time: 08/07/2024 9:43 PM Age: 83 years old Clinical indication: Prior surgery; Surgery date: 6+ months; Surgery type: Pacemaker; Fever, TECHNIQUE: Imaging protocol: Radiologic exam of the chest. Views: 2 views. COMPARISON: CT CHEST PE CTA 02/24/2024 9:45 PM FINDINGS: Tubes, catheters and devices: Left subclavian pacemaker leads are identified with their tips in the right atrium and right ventricle respectively. Lungs: Unremarkable. No consolidation. Pleural spaces: Unremarkable. No pleural effusion. No pneumothorax. Heart/Mediastinum: Heart is slightly enlarged. Bones/joints: Right shoulder prosthesis identified in good position. IMPRESSION: No acute infiltrates. Dictated and Authenticated by: Tej Whitaker MD. Orderin Shashi Easley MD
[2024-08-07 23:00] LABS: Bilirubin Negative (Negative); Blood Negative (Negative); Clarity Sl Cloudy (Clear); Glucose Negative (Negative); Ketones Negative (Negative); Leukocyte Esterase Trace (Negative); Nitrite Positive (Negative); Urobilinogen 0.2 mg/dL (Up to 0.2); pH 5.5 (5-8)
[2024-08-07 23:04] LABS: RBC 0-2 HPF (0-2)
[2024-08-07 23:05] LABS: Bacteria Moderate HPF (Negative); C & S Indicated? Yes; Casts Negative LPF (Negative); Crystals Negative HPF (Negative); Epithelial Cells Few HPF (Negative); Mucus Trace (Negative)
[2024-08-07] MEDS: cefTRIAXone 1 GM/50 ML BAG IVPB (23:15)
[2024-08-07] MEDS: Cephalexin 500 MG CAP, 2 CAPS/BTL PO (23:16)
--- NOTE | 2024-08-08 14:44 | NUR.NOTE ---
Critical lab result: anerobic bottle positive, (2nd bottle) gram stain shows gram negative rods. Given to Dr. Reeves. Nursing Note:
--- NOTE | 2024-08-08 17:00 | W.ED.FU ---
Date of service: 08/08/24 Time of Service: 17:00 Follow Up Plan: Patient's blood cultures have returned positive, pending sensitivities. I did contact the patient and she states that she is still having chills, she does not feel well, and she does not feel like she is getting any better. Encouraged the patient to come in. She will come in this evening at around 9:30 PM.
== END 2024-08-07 23:52 | disposition home or self-care (01) ==
PROVIDERS: Emergency Medicine; Emergency Provider Registered Nurse Emergency; PCP Family Medicine
DX: N39.0 Urinary tract infection, site not specified (principal); I10 Essential (primary) hypertension; I25.10 Atherosclerotic heart disease of native coronary artery without angina pectoris; I25.2 Old myocardial infarction; Z95.0 Presence of cardiac pacemaker; Z79.01 Long term (current) use of anticoagulants; Z87.891 Personal history of nicotine dependence
CPT/HCPCS: 36415; 80053; 87040; 87077; 87637; 93005; 96361; 96374; 99285; 71046; 81003; 81015; 83605; 84484; 85025; 87086; 87186; 93010; 99284; J0696

== ENCOUNTER 2024-08-08 20:26 | Inpatient (IN) | payer MEDICARE, SELFPAY ==
[2024-08-08 20:30] VITALS: BP 134/75; PULSE 105; RESP 22; TEMP 36.4; O2SAT 93
[2024-08-08 21:00] LABS: Lactate 1.8 mmol/L (<or=2.0)
[2024-08-08 21:02] LABS: Abs Immature Grans 0.07 10^3/uL (0.0-0.06); Absolute Basophil Count 0.05 10^3/uL (0.0-0.2); Absolute Eosinophil Count 0.12 10^3/uL (0.0-0.7); Absolute Lymphocyte Count 1.04 10^3/uL (1.2-3.4); Absolute Monocyte Count 0.91 10^3/uL (0.1-0.8); Absolute Neutrophil Count 13.29 10^3/uL (1.2-6.7); Basophils % 0.3 %; Eosinophils % 0.8 %; HCT 35.6 % (36.0-46.0); HGB 11.9 g/dL (11.2-15.7); Immature Grans % 0.5 %; Lymphocytes % 6.7 %; MCH 33.5 pg (27.0-33.0); MCHC 33.4 % (32.0-36.0); MCV 100 fL (80-95); MPV 10.4 fL (8.0-11.0); Monocytes % 5.9 %; Neutrophils % 85.8 %; Platelet Count 255 10^3/uL (130-400); RBC 3.55 10^6/uL (3.93-5.22); RDW 13.7 % (11.7-14.6); RDW-SD 50.8 fL; WBC 15.49 10^3/uL (4.4-10.8)
[2024-08-08 21:17] LABS: Anion Gap 9.8 mmol/L (3-11); BUN 16 mg/dL (7-18); CO2 27.2 mmol/L (21.0-32.0); CREATININE 1.2 mg/dL (0.55-1.02); Calcium 8.7 mg/dL (8.5-10.1); Chloride 101 mmol/L (98-107); Estimated GFR 44.64 (mL/min/1.73m2); Glucose 128 mg/dL (74-106); Potassium 3.2 mmol/L (3.5-5.1); Sodium 138 mmol/L (136-145)
[2024-08-08 21:22] VITALS: PULSE 108; RESP 18; TEMP 36.6; O2SAT 96
[2024-08-08] MEDS: cefTRIAXone 2 GM/50 ML BAG IVPB (21:33)
--- NOTE | 2024-08-08 21:35 | W.ED.GENAD ---
Discharge Plan Discharge Details Chief Complaint: Urinary Admit Date/Time: 08/08/24 22:20 Admit Provider: Mike Garvey Attending Provider: Mike Garvey Primary Care Provider: Masood Pierson ED Provider: Radu Giron Discharge Data Discharge Date/Time-TO BE ENTERED AT DEPARTURE: 08/08/24 22:47 HPI General Date/Time Provider Initiated Documentation: 08/08/24 20:28. HPI Narrative: MDM This is an overall well-appearing afebrile but mildly tachycardic 83-year-old bacteremic female for which she will receive broad-spectrum antibiotics with 2 g of ceftriaxone in the setting of gram-negative rods growing on blood culture from last night. I spoke with Dr. Garvey who agreed to hospitalize her. No pain out of proportion to suggest necrotizing soft tissue infection. No history of ureterolithiasis and no flank pain to suggest septic stone. Will order repeat blood cultures. No cough nor hypoxia to suggest pneumonia. No rash to suggest cellulitis. Will monitor in the ED. no right lower quadrant tenderness to suggest appendicitis. No dizziness no headache to suggest CVA. Labs notable for persistent leukocytosis. No anemia. No thrombocytopenia. Mild hypokalemia. No JUAN. Repeat UA nitrite negative. HPI This is an 83-year-old female with diagnosis of urinary tract infection last night return to the emergency department following a call from the ED as she had gram-negative bacteremia. She reports she has had chills and decreased p.o. today she took acetaminophen at approximately 7 PM this evening. No recent falls. Endorses some low back pain. Exam General: Well-appearing in no acute distress speaking in complete sentences. Head: Normocephalic, atraumatic. Eye: Extraocular eye movements intact. No conjunctival injection. No scleral icterus. Ear, nose, mouth, throat: Grossly normal inspection. Normal voice, handling secretions normally. Neck: Trachea midline. Cardiovascular: Well-perfused distal extremities. Rapid regular rate and rhythm Respiratory: Nonlabored respiration. Clear lungs Gastrointestinal: Nondistended abdomen. Soft nontender Musculoskeletal: No edema. Moving all 4 extremities spontaneously. Skin: Normal for age and race, grossly normal temperature and turgor. No acute rash. Neurologic: Alert and appropriate, no apparent acute deficits. Related Data Home Medications ?Medication ?Instructions ?Recorded ?Confirmed ascorbate calcium (vitamin C) 500 1 tab PO DAILY 11/25/14 08/08/24 mg tablet aspirin 81 mg chewable tablet 1 tab PO DAILY 11/25/14 08/08/24 vitamin B complex (B-Complex 1 tab PO DAILY 11/25/14 08/08/24 tablet) losartan 50 mg tablet 50 mg PO DAILY 02/12/22 08/08/24 oxybutynin chloride 5 mg tablet 5 mg PO DAILY 02/12/22 08/08/24 clopidogrel 75 mg tablet 75 mg PO DAILY 11/18/23 08/08/24 nitroglycerin 0.4 mg sublingual 0.4 mg sublingual Q5M 11/18/23 08/08/24 tablet atorvastatin 80 mg tablet 80 mg PO DAILY 02/24/24 08/08/24 metoprolol succinate 25 mg 12.5 mg PO DAILY 02/24/24 08/08/24 tablet,extended release 24 hr spironolactone 25 mg tablet 25 mg PO DAILY 02/24/24 08/08/24 cephalexin 500 mg tablet 500 mg PO BID 10 days #20 tabs 08/07/24 08/08/24 famotidine 40 mg tablet 40 mg PO QHS 08/08/24 08/08/24 isosorbide mononitrate 30 mg 30 mg PO DAILY 08/08/24 08/08/24 tablet,extended release 24 hr Previous Rx's ?Medication ?Instructions ?Recorded cephalexin 500 mg tablet 500 mg PO BID 10 days #20 tabs 08/07/24 Allergies Allergy/AdvReac Type Severity Reaction Status Date / Time hydrocodone Allergy Intermediate Itching Unverified 08/08/24 20:33 oxycodone HCl (From Percocet) Allergy Intermediate Itching Unverified 08/08/24 20:33 prednisone Allergy Intermediate Swelling/Ed Unverified 08/08/24 20:33 acosta lisinopril Allergy Mild Other (See Verified 08/08/24 20:33 Comment) General Stated Complaint: Urinary BRADLEY: 3 Course Vital Signs Vital signs: Vital Signs Temperature 36.4 C L 08/08/24 20:30 Pulse 105 H 08/08/24 20:30 Respiratory Rate 22 08/08/24 20:30 Blood Pressure 134/75 08/08/24 20:30 Pulse Oximetry 93 08/08/24 20:30 Temperature 36.6 C 08/08/24 21:22 Temperature Source Temporal Artery Scan 08/08/24 21:22 Pulse 108 H 08/08/24 21:22 Respiratory Rate 18 08/08/24 21:22 Blood Pressure 134/75 08/08/24 20:30 Blood Pressure Position Sitting 08/08/24 20:30 Pulse Oximetry 96 08/08/24 21:22 Oxygen Delivery Method Room Air 08/08/24 21:22 Oxygen Flow Rate 0 08/08/24 20:30 Pain Level 6 08/08/24 21:22 Lab/Test Results Lab/Test Results: 08/08/24 21:15 Blood Blood Culture - Pending 08/08/24 20:53 Blood Blood Culture - Pending Laboratory Tests Range/Units 08/08/24 20:53 WBC (4.4-10.8) 10^3/uL 15.49 H RBC (3.93-5.22) 10^6/uL 3.55 L Hgb (11.2-15.7) g/dL 11.9 Hct (36.0-46.0) % 35.6 L MCV (80-95) fL 100 H MCH (27.0-33.0) pg 33.5 H MCHC (32.0-36.0) % 33.4 RDW (11.7-14.6) % 13.7 Plt Count (130-400) 10^3/uL 255 MPV (8.0-11.0) fL 10.4 Immature Gran % % 0.5 Neutrophils % % 85.8 Lymphocytes % % 6.7 Monocytes % % 5.9 Eosinophils % % 0.8 Basophils % % 0.3 Nucleated RBC % (0.0-0.3) % 0.0 Absolute Neutrophils (1.2-6.7) 10^3/uL 13.29 H Absolute Lymphocytes (1.2-3.4) 10^3/uL 1.04 L Absolute Monocytes (0.1-0.8) 10^3/uL 0.91 H Absolute Eosinophils (0.0-0.7) 10^3/uL 0.12 Absolute Basophils (0.0-0.2) 10^3/uL 0.05 VBG Lactate (<or=2.0) mmol/L 1.8 Sodium (136-145) mmol/L 138 Potassium (3.5-5.1) mmol/L 3.2 L Chloride (98-107) mmol/L 101 Carbon Dioxide (21.0-32.0) mmol/L 27.2 Anion Gap (3-11) mmol/L 9.8 BUN (7-18) mg/dL 16 Creatinine (0.55-1.02) mg/dL 1.2 H Est GFR (CKD-EPI 2020) (mL/min/1.73m2) 44.64 Glucose (74-106) mg/dL 128 H Calcium (8.5-10.1) mg/dL 8.7 Medical Decision Making Quality:SDOH Health Related Social Needs: Health related social needs details pt reports she hasnt been sick in 2-years. reports once she was at [facility] [place] she felt she caught a cold. PFSH All Active Problems Acute UTI (Acute) Hypertension (Chronic) Bradycardia (Chronic) Headache (Acute) Mechanical low back pain (Acute) Spinal stenosis of lumbar region (Acute) Lumbar spondylosis (Acute) Tachyarrhythmia (Acute) Tinnitus, bilateral (Acute) Sensorineural hearing loss of both ears (Acute) Medical History Neck pain First degree AV block Stress incontinence Hyperlipidemia Hematemesis Piriformis syndrome Hypertension Aortic arch aneurysm CAD (coronary artery disease), [place] coronary artery Surgical History History of rotator cuff surgery S/P KALLI-BSO Family History Mother Hypertension Stroke Heart disease Social History Smoking/Tobacco Use Status: Former Tobacco Use Smoking risk assessment performed?: Yes Alcohol Intake: never Drug use: Never Substance use type: does not use Housing: apartment Do you feel safe at home: Yes Do you feel safe in your relationship?: Yes
[2024-08-08] MEDS: Normal Saline 500 ML IV (21:56)
--- NOTE | 2024-08-08 22:04 | W.PM.HP.N ---
Date of service: 08/08/24 Time of Service: 22:05 Assessment and Plan Assessment and plan (1) Acute UTI: Status: Acute Assessment and plan: UTI with bacteremia, one would presume probably a pyelo. Patient not having any abdominal or back pain so I don't see need for imaging. Will await culture results and continue empiric Rocephin. Reviewed ADs, requests Full Code History of Present Illness History of Present Illness Chief Complaint: positive blood culture Narrative: 83 year old female seen yesterday with one day of chills and urinary frequency. White count 17 and pyuria noted. Given dose of Rocpephin and sent home on Keflex. Blood cultures drawn at the time are today coming back 2 of 2 bottles positive gram negative rods. Patient was called and asked to return to ER. Continues with urinary frequency. Denies nausea and vomiting though appetie is off. Denies back pain. I was asked to evaluate for admission. Review of Systems Narrative: per HPI PFSH All Active Problems Acute UTI (Acute) Hypertension (Chronic) Bradycardia (Chronic) Headache (Acute) Mechanical low back pain (Acute) Spinal stenosis of lumbar region (Acute) Lumbar spondylosis (Acute) Tachyarrhythmia (Acute) Tinnitus, bilateral (Acute) Sensorineural hearing loss of both ears (Acute) Medical History Neck pain First degree AV block Stress incontinence Hyperlipidemia Hematemesis Piriformis syndrome Hypertension Aortic arch aneurysm CAD (coronary artery disease), [place] coronary artery Surgical History History of rotator cuff surgery S/P KALLI-BSO Family History Mother Hypertension Stroke Heart disease Social History Smoking/Tobacco Use Status: Former Tobacco Use Smoking risk assessment performed?: Yes Alcohol Intake: never Drug use: Never Substance use type: does not use Housing: apartment Do you feel safe at home: Yes Do you feel safe in your relationship?: Yes Meds Allergies and Home Medications Allergies Allergy/AdvReac Type Severity Reaction Status Date / Time hydrocodone Allergy Intermediate Itching Unverified 08/08/24 20:33 oxycodone HCl (From Percocet) Allergy Intermediate Itching Unverified 08/08/24 20:33 prednisone Allergy Intermediate Swelling/Ed Unverified 08/08/24 20:33 acosta lisinopril Allergy Mild Other (See Verified 08/08/24 20:33 Comment) Home Medications ?Medication ?Instructions ?Recorded ?Confirmed ?Type ascorbate calcium (vitamin C) 500 1 tab PO DAILY 11/25/14 08/08/24 History mg tablet aspirin 81 mg chewable tablet 1 tab PO DAILY 11/25/14 08/08/24 History vitamin B complex (B-Complex 1 tab PO DAILY 11/25/14 08/08/24 History tablet) losartan 50 mg tablet 50 mg PO DAILY 02/12/22 08/08/24 History oxybutynin chloride 5 mg tablet 5 mg PO DAILY 02/12/22 08/08/24 History clopidogrel 75 mg tablet 75 mg PO DAILY 11/18/23 08/08/24 History nitroglycerin 0.4 mg sublingual 0.4 mg sublingual Q5M 11/18/23 08/08/24 History tablet atorvastatin 80 mg tablet 80 mg PO DAILY 02/24/24 08/08/24 History metoprolol succinate 25 mg 12.5 mg PO DAILY 02/24/24 08/08/24 History tablet,extended release 24 hr spironolactone 25 mg tablet 25 mg PO DAILY 02/24/24 08/08/24 History cephalexin 500 mg tablet 500 mg PO BID 10 days #20 tabs 08/07/24 08/08/24 Rx Exam Narrative Exam Narrative: 134/75, 108, 36.6, 18, 96% RA. HEENT atraumatic; neck supple; lungs clear; heart RRR; negative CVAT; abdomen soft and NT; extremities w/o edema; neuro Ox3, lucid, moves all 4s Results Labs 08/08/24 20:53 08/08/24 20:53 Labs: Laboratory Results - last 24 hr 08/08/24 20:53 WBC 15.49 H RBC 3.55 L Hgb 11.9 Hct 35.6 L MCV 100 H MCH 33.5 H MCHC 33.4 RDW 13.7 Plt Count 255 MPV 10.4 Immature Gran % 0.5 Neutrophils % 85.8 Lymphocytes % 6.7 Monocytes % 5.9 Eosinophils % 0.8 Basophils % 0.3 Nucleated RBC % 0.0 Absolute Neutrophils 13.29 H Absolute Lymphocytes 1.04 L Absolute Monocytes 0.91 H Absolute Eosinophils 0.12 Absolute Basophils 0.05 VBG Lactate 1.8 Sodium 138 Potassium 3.2 L Chloride 101 Carbon Dioxide 27.2 Anion Gap 9.8 BUN 16 Creatinine 1.2 H Est GFR (CKD-EPI 2020) 44.64 Glucose 128 H Calcium 8.7 Last Vital Signs Temp 36.6 C 08/08/24 21:22 Pulse 108 H 08/08/24 21:22 Resp 18 08/08/24 21:22 BP 134/75 08/08/24 20:30 Pulse Ox 96 08/08/24 21:22 Time Spent Time spent with Patient: 40-54 minutes Time was spent: preparing to see the patient(eg.review tests), obtaining and/or reviewing separately otained hiistory, ordering medications,tests, procedures, referring, communicating with other health primary care pediatrician and indepentently interpreting results
[2024-08-08 22:07] LABS: Bilirubin Negative (Negative); Blood Negative (Negative); Clarity Cloudy (Clear); Glucose Negative (Negative); Ketones Negative (Negative); Leukocyte Esterase Negative (Negative); Nitrite Negative (Negative); Specific Gravity >= 1.030 (1.005-1.025); Urobilinogen 0.2 mg/dL (Up to 0.2)
[2024-08-08] MEDS: Potassium Chloride 20 MEQ TABCR PO (23:50)
[2024-08-08] MEDS: Famotidine 20 MG TAB 40 MG PO (23:50)
[2024-08-09] VITALS (210 sets, daily range): BP systolic 109–134; BP diastolic 59–80; PULSE 56–132; RESP 14–41; TEMP 36.1–36.8; O2SAT 91–100
[2024-08-09] MEDS: POTASSIUM CHLORIDE/0.9% NACL 1,000 ML 100 MEQ IV ×2 (00:04→13:47)
--- NOTE | 2024-08-09 06:40 | NUR.NOTE ---
0632: Report given to TANESHA Chen on Med-Surg. Pt transferred upstairs to 226 by EMT Joshua.
--- NOTE | 2024-08-09 07:48 | W.PC.ACHO ---
Registration Status: Primary Language: Preferred Language: ED Information & Data Chief Complaint Urinary 08/08/24 21:37 Triage Note Pt brought in by daughter, 08/08/24 20:30 was seen yesterday and dx with UTI. Started abx. States nauseous and I got the shakes. Denies headache , dizziness, states lower back pain. Last took tylenol at approx 1900. Medical / Surgical History (Last Reviewed 08/08/24 @ 22:08 by Mike Garvey MD) Neck pain First degree AV block Stress incontinence Hyperlipidemia Hematemesis Piriformis syndrome Hypertension Aortic arch aneurysm CAD (coronary artery disease), [place] coronary artery (Last Reviewed 08/08/24 @ 22:08 by Mike Garvey MD) History of rotator cuff surgery S/P KALLI-BSO Most Recent Vital Signs Temperature 36.4 C L 08/09/24 07:33 Temperature Source Tympanic 08/09/24 07:33 Pulse 108 H 08/09/24 07:33 Respiratory Rate 20 08/09/24 07:33 Blood Pressure 134/80 08/09/24 07:33 Blood Pressure Position Sitting 08/08/24 20:30 Pulse Oximetry 97 08/09/24 07:33 Oxygen Delivery Method Nasal Cannula 08/09/24 07:33 Oxygen Flow Rate 2 08/09/24 07:33 Pain Level 2 08/09/24 07:05 Comment MAP 75 chronic back pain 08/09/24 07:05 Allergies hydrocodone Allergy (Intermediate, Unverified 08/08/24 20:33) Itching oxycodone HCl (From Percocet) Allergy (Intermediate, Unverified 08/08/24 20:33) Itching prednisone Allergy (Intermediate, Unverified 08/08/24 20:33) Swelling/Edema lisinopril Allergy (Mild, Verified 08/08/24 20:33) Other (See Comment) cough Precautions Isolation Standard precaution 08/08/24 20:33 Active Medications Generic Name Dose Route Start Last Admin Trade Name Freq PRN Reason Stop Dose Admin Famotidine 40 mg 08/08/24 20:00 08/08/24 23:50 Famotidine 20 Mg Tab PO 40 mg HS ERIC Administration Potassium Chloride/Sodium Chloride 1,000 mls @ 100 mls/hr 08/08/24 22:30 08/09/24 00:04 Kcl 20meq/Ns IV 100 mls/hr INFUSION ERIC Administration IV IV Catheter Type [Left Forearm Peripheral IV ] IV Catheter Gauge [Left 20 Forearm] Diet Orders Category Date Time Status Regular/Normal [DIET] Nutrition 08/09/24 Breakfast Active Diagnostics 08/08/24 08/08/24 Range/Units 21:44 20:53 WBC 15.49 H (4.4-10.8) 10^3/uL RBC 3.55 L (3.93-5.22) 10^6/uL Hgb 11.9 (11.2-15.7) g/dL Hct 35.6 L (36.0-46.0) % MCV 100 H (80-95) fL MCH 33.5 H (27.0-33.0) pg MCHC 33.4 (32.0-36.0) % RDW 13.7 (11.7-14.6) % Plt Count 255 (130-400) 10^3/uL MPV 10.4 (8.0-11.0) fL Immature Gran % 0.5 % Neutrophils % 85.8 % Lymphocytes % 6.7 % Monocytes % 5.9 % Eosinophils % 0.8 % Basophils % 0.3 % Nucleated RBC % 0.0 (0.0-0.3) % Absolute Neutrophils 13.29 H (1.2-6.7) 10^3/uL Absolute Lymphocytes 1.04 L (1.2-3.4) 10^3/uL Absolute Monocytes 0.91 H (0.1-0.8) 10^3/uL Absolute Eosinophils 0.12 (0.0-0.7) 10^3/uL Absolute Basophils 0.05 (0.0-0.2) 10^3/uL VBG Lactate 1.8 (<or=2.0) mmol/L Sodium 138 (136-145) mmol/L Potassium 3.2 L (3.5-5.1) mmol/L Chloride 101 (98-107) mmol/L Carbon Dioxide 27.2 (21.0-32.0) mmol/L Anion Gap 9.8 (3-11) mmol/L BUN 16 (7-18) mg/dL Creatinine 1.2 H (0.55-1.02) mg/dL Est GFR (CKD-EPI 2020) 44.64 (mL/min/1.73m2) Glucose 128 H (74-106) mg/dL Calcium 8.7 (8.5-10.1) mg/dL Urine Color Yellow (Yellow) Urine Clarity Cloudy (Clear) Urine pH 6.0 (5-8) Ur Specific [place] >= 1.030 H (1.005-1.025) Urine Protein Negative (Neg-Trace) mg/dL Urine Ketones Negative (Negative) mg/dL Urine Blood Negative (Negative) Urine Nitrite Negative (Negative) Urine Bilirubin Negative (Negative) Urine Urobilinogen 0.2 (Up to 0.2) mg/dL Ur Leukocyte Esterase Negative (Negative) Urine Glucose Negative (Negative) mg/dL 08/08/24 21:15 Blood Culture - Pending Blood 08/08/24 20:53 Blood Culture - Pending Blood Intake and Output - 24 Hour Total 08/08/24 20:26 thru 08/09/24 06:52 Intake Total 550 Balance 550 Weight 69.6 kg Intake: IV 550 Falls Risk Assessment History of Falls No History 08/08/24 21:22 Contributing Factors No Factors 08/08/24 21:22 Ambulatory Aids Independent 08/08/24 21:22 Tubes/Lines None 08/08/24 21:22 Gait Evaluation No gait disturbance 08/08/24 21:22 Cognition No cognitive impairment 08/08/24 21:22 Fall Total Score 0 08/08/24 21:22 Level of Risk Standard/Low Risk 08/08/24 21:22 Problems (Last Reviewed 08/08/24 @ 22:08 by Mike Garvey MD) Acute UTI (Acute) Notes 08/09/24 06:40 Nursing Notes by Cheryl Jensen 0632: Report given to TANESHA Chen on Med-Surg. Pt transferred upstairs to 226 by GOOD Lewis. Initialized on 08/09/24 06:40 - END OF NOTE v v v v v v v v v Sending and/or Receiving Nurses: Please use comment section below to note any information pertinent to the patient hand-off not included above. Information / Comments: hx of beatrice, HTN, spinal stenosis, NINILCHIK. was in ED tuesday night for UTI s/s, positive for UTI, prescribed keflex, sent home. Came back to ED last night for increased s/s, chills, feverish, flushed K+ 3.2, creatinine and glucose slightly elevated urine is looking better, gravity was a bit high 08/07 - for flu-vid swab pending urine cultures does have a pacer, appears to be pretty dependents, sits 100-120s sats 89-90 when sleeping on 2L now 20g in LFA Report received from: ROLANDA Avila RN, @ [phone]
--- NOTE | 2024-08-09 09:49 | W.PM.PROGNOT ---
Date of Service Date of service: 08/09/24 Time of Service: 09:49 Assessment and Plan Assessment and plan (1) Severe sepsis with acute organ dysfunction due to Gram negative bacteria: Status: Acute Assessment and plan: Presented with tachycardia over 90 and respiratory rate over 20 with WBC at 15 thus meeting criteria for sepsis with source of urinary nature as per below. Overall creatinine baseline seems to be around 1 prior to July 2023 now 1.4 which meets criteria for organ dysfunction placing the patient for severe sepsis. As below and as per point discussing JUAN (2) Acute UTI: Status: Acute Assessment and plan: UTI with bacteremia, one would presume probably a pyelo. Patient not having any abdominal or back pain so I don't see need for imaging. Will await culture results and continue empiric Rocephin. Treating with ceftriaxone and as above (3) JUAN (acute kidney injury): Status: Acute Assessment and plan: CR baseline seems to be around 1.0 prior to July 2024 now at 1.4 Continue IVF cultures looking for signs of fluid overload does not seem to have an echocardiogram on file (4) Hypokalemia: Status: Acute Assessment and plan: Hypokalemia noticed on admission replacement was given but hypomagnesemia was not corrected will correct hypomagnesemia and then recheck both potassium and magnesium this afternoon. (5) Hypomagnesemia: Status: Acute (6) On deep vein thrombosis (DVT) prophylaxis: Status: Acute Assessment and plan: On low molecular weight heparin Discussed with Dr. Chen Subjective Subjective Patient reports: feels better, tolerating liquids well, tolerating a regular diet and flatus; denies no bowel movement, diarrhea, nausea or vomiting Exam Narrative Exam Narrative: Alert and oriented x 3, nonfocal, hard of hearing, moves all 4 extremities, S1-S2, positive murmur, clear lungs abdomen is nondistended soft nontender, no CVA tenderness Objective Last Vital Signs Temp 36.4 C L 08/09/24 07:33 Pulse 108 H 08/09/24 07:33 Resp 20 08/09/24 07:33 BP 134/80 08/09/24 07:33 Pulse Ox 97 08/09/24 07:33 Laboratory Results - last 24 hr 08/08/24 08/08/24 20:53 21:44 WBC 15.49 H RBC 3.55 L Hgb 11.9 Hct 35.6 L MCV 100 H MCH 33.5 H MCHC 33.4 RDW 13.7 Plt Count 255 MPV 10.4 Immature Gran % 0.5 Neutrophils % 85.8 Lymphocytes % 6.7 Monocytes % 5.9 Eosinophils % 0.8 Basophils % 0.3 Nucleated RBC % 0.0 Absolute Neutrophils 13.29 H Absolute Lymphocytes 1.04 L Absolute Monocytes 0.91 H Absolute Eosinophils 0.12 Absolute Basophils 0.05 VBG Lactate 1.8 Sodium 138 Potassium 3.2 L Chloride 101 Carbon Dioxide 27.2 Anion Gap 9.8 BUN 16 Creatinine 1.2 H Est GFR (CKD-EPI 2020) 44.64 Glucose 128 H Calcium 8.7 Urine Color Yellow Urine Clarity Cloudy Urine pH 6.0 Ur Specific [place] >= 1.030 H Urine Protein Negative Urine Ketones Negative Urine Blood Negative Urine Nitrite Negative Urine Bilirubin Negative Urine Urobilinogen 0.2 Ur Leukocyte Esterase Negative Urine Glucose Negative Time Spent with Patient Time Spent with Patient: >50 minutes Time was spent: preparing to see the patient(eg.review tests), obtaining and/or reviewing separately otained hiistory, ordering medications,tests, procedures, referring, communicating with other health child care center assistant director, indepentently interpreting results, counseling the patient and care coordination
[2024-08-09] MEDS: Isosorbide Mononitrate 20 MG TAB 30 MG PO (09:59)
[2024-08-09] MEDS: Spironolactone 25 MG TAB PO (10:00)
[2024-08-09] MEDS: Aspirin 81 MG CHEW PO (10:00)
[2024-08-09] MEDS: Vitamins B Comp w/C TAB 1 TAB PO (10:01)
[2024-08-09] MEDS: Losartan 50 MG TAB PO (10:01)
[2024-08-09] MEDS: Clopidogrel 75 MG TAB PO (10:01)
[2024-08-09] MEDS: Metoprolol CR 25 MG TABCR 12.5 MG PO (10:01)
[2024-08-09] MEDS: Oxybutynin 5 MG TAB PO (10:02)
[2024-08-09] MEDS: Normal Saline Flush 10 ML SYR IVP ×2 (10:02→20:28)
[2024-08-09] MEDS: MAGNESIUM SULFATE 2 GM/50 ML BAG IV_INF (11:31)
[2024-08-09] MEDS: Potassium Chloride 20 MEQ TABCR PO (11:31)
[2024-08-09] MEDS: Enoxaparin 40 MG/0.4 ML SYR SC (11:35)
--- NOTE | 2024-08-09 12:13 | INITIAL_ITS ---
Date of service: 08/09/24 Time of Service: 12:14 Care Management Initial Assmt Initial Assessment Reason for Hospitalization: JUAN Functional Status/Living Situation Patient Presentation: Lyla was awake and lying in bed when CM met with her. She is pleasant and agreeable to conversation. Per pt, she is active, drives and fully independent at baseline. Her youngest of three daughters is Iris and she lives 5 minutes from her, daughter Karen lives in [place], [place] and daughter Katrina lives in [place]. Town of Residence: [place] Resides with: Alone Significant Other/Family: Local Natural Supports: Daughters, grandchildren, close friends, attends [employer] and Consulted Employment Status: Retired Instrumental Activities of Daily Living (ADLs): Independent Medications Medication Management: No Issues/Barriers identified Physical Functioning/Mobility Assistive Device: None Advance Directives Advance Directives: Do you have an Advance Directive: Y 12/10/14 08:53 AD On File at [facility]: Y 12/10/14 08:53 Date Asked 07/25/24 07/25/24 14:00 AD Date Reviewed 08/08/24 08/08/24 20:30 COLST On File at [facility] COLST Date Scanned Code Status Resuscitation Status Full Code Portal Pt does not currently have a portal and education provided: Yes Insurance Coverage/Financial Issues Insurance: [employer] [facility] Care Team Visit Care Team Role Provider Type Beatriz Covington APRN MD [facility] STAFF PHYSICIAN Masood Pierson MD Primary Care Provider NON-[facility] STAFF PHYSICIAN Radu Giron MD Emergency Provider [facility] STAFF PHYSICIAN Mike Garvey MD Admit Provider [facility] STAFF PHYSICIAN Attending Provider Discharge Potential Discharge Needs: PCP F/U Appt Anticipated Barriers to Discharge: Medical Status Patient/Family Education Needs: Review discharge instructions, discuss Ask Me Three Transportation: Private vehicle Plan: Anticipate Lyla will be discharged home with no new services. She will follow up with her community providers after discharge and transport with family. CM will follow and continue to assess for discharge planning concerns. Social Determinants of Health Screening Will the Patient Participate in the Screening?: Unable to obtain PFSH All Active Problems (Updated 08/09/24 @ 10:09 by Beatriz Covington APRN) Severe sepsis with acute organ dysfunction due to Gram negative bacteria (Acute) JUAN (acute kidney injury) (Acute) On deep vein thrombosis (DVT) prophylaxis (Acute) Hypomagnesemia (Acute) Hypokalemia (Acute) Sepsis due to gram-negative UTI (Acute) Acute UTI (Acute) Hypertension (Chronic) Bradycardia (Chronic) Headache (Acute) Mechanical low back pain (Acute) Spinal stenosis of lumbar region (Acute) Lumbar spondylosis (Acute) Tachyarrhythmia (Acute) Tinnitus, bilateral (Acute) Sensorineural hearing loss of both ears (Acute) Medical History Neck pain First degree AV block Stress incontinence Hyperlipidemia Hematemesis Piriformis syndrome Hypertension Aortic arch aneurysm CAD (coronary artery disease), [place] coronary artery Surgical History History of rotator cuff surgery S/P KALLI-BSO Family History Mother Hypertension Stroke Heart disease Social History Smoking/Tobacco Use Status: Former Tobacco Use Smoking risk assessment performed?: Yes Alcohol Intake: never Drug use: Never Substance use type: does not use Housing: apartment Do you feel safe at home: Yes Do you feel safe in your relationship?: Yes
--- NOTE | 2024-08-09 14:04 | CHAPLAIN ---
Lyla was sitting up in bed when I visited. She remembered me from a previous hospitalization when she had a heart attack on Mother's Day last year. Since then she had a pace maker put in and has been feeling ok until recently when she was throwing up some and yesterday had chills and found out she had a temperature. She lives alone, so she called a friend to bring her to the ED. Lyla lives in [place] and has daughters who live locally. Lyla said she is nervous about approaching the anniversary of her heart attack and is looking forward to getting beyond that, although she's not had any cardiac issue lately. She is [employer] and asked me to let Fr. Chowdhury know that she is here. I left a message with the rectory. 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
[2024-08-09 15:23] LABS: BUN 11 mg/dL (7-18); CREATININE 0.9 mg/dL (0.55-1.02); Calcium 8.1 mg/dL (8.5-10.1); Chloride 107 mmol/L (98-107); Estimated GFR 63.04 (mL/min/1.73m2); Glucose 130 mg/dL (74-106); Magnesium 2.2 mg/dL (1.8-2.4); Sodium 137 mmol/L (136-145)
[2024-08-09] MEDS: cefTRIAXone 1 GM/50 ML BAG IVPB (20:27)
[2024-08-09] MEDS: Famotidine 20 MG TAB PO (20:28)
[2024-08-09] MEDS: Atorvastatin 40 MG TAB 80 MG PO (20:29)
[2024-08-09] MEDS: Melatonin 3 MG TAB 6 MG PO (20:29)
[2024-08-10 03:30] VITALS: BP 137/86; PULSE 61; RESP 18; TEMP 36.9; O2SAT 93
[2024-08-10 06:16] LABS: Abs Immature Grans 0.03 10^3/uL (0.0-0.06); Absolute Basophil Count 0.06 10^3/uL (0.0-0.2); Absolute Eosinophil Count 0.22 10^3/uL (0.0-0.7); Absolute Lymphocyte Count 1.39 10^3/uL (1.2-3.4); Absolute Monocyte Count 1.53 10^3/uL (0.1-0.8); Basophils % 0.6 %; Eosinophils % 2.2 %; HCT 33.6 % (36.0-46.0); HGB 11.2 g/dL (11.2-15.7); Immature Grans % 0.3 %; Lymphocytes % 13.9 %; MCH 33.7 pg (27.0-33.0); MCHC 33.3 % (32.0-36.0); MCV 101 fL (80-95); MPV 10.9 fL (8.0-11.0); Monocytes % 15.3 %; Neutrophils % 67.7 %; Platelet Count 245 10^3/uL (130-400); RBC 3.32 10^6/uL (3.93-5.22); RDW 13.6 % (11.7-14.6); RDW-SD 50.6 fL
[2024-08-10 06:32] LABS: Anion Gap 6.5 mmol/L (3-11); BUN 8 mg/dL (7-18); CO2 25.5 mmol/L (21.0-32.0); CREATININE 0.8 mg/dL (0.55-1.02); Chloride 107 mmol/L (98-107); Estimated GFR 72.61 (mL/min/1.73m2); Glucose 107 mg/dL (74-106); Potassium 4.3 mmol/L (3.5-5.1); Sodium 139 mmol/L (136-145)
[2024-08-10 06:56] LABS: Diff Comment Diff Reviewed; RBC Morphology Normal
[2024-08-10 07:02] LABS: WBC 9.97 10^3/uL (4.4-10.8)
[2024-08-10 07:03] LABS: Absolute Neutrophil Count 6.75 10^3/uL (1.2-6.7)
[2024-08-10 07:57] VITALS: BP 142/72; PULSE 60; RESP 18; TEMP 36.5; O2SAT 95
[2024-08-10] MEDS: Isosorbide Mononitrate 20 MG TAB 30 MG PO (08:34)
[2024-08-10] MEDS: Metoprolol CR 25 MG TABCR 12.5 MG PO (08:34)
[2024-08-10] MEDS: Clopidogrel 75 MG TAB PO (08:35)
[2024-08-10] MEDS: Normal Saline Flush 10 ML SYR IVP (08:35)
[2024-08-10] MEDS: Losartan 50 MG TAB PO (08:35)
[2024-08-10] MEDS: Oxybutynin 5 MG TAB PO (08:35)
[2024-08-10] MEDS: Vitamins B Comp w/C TAB 1 TAB PO (08:35)
[2024-08-10] MEDS: Spironolactone 25 MG TAB PO (08:35)
[2024-08-10] MEDS: Aspirin 81 MG CHEW PO (08:35)
--- NOTE | 2024-08-10 10:04 | W.PM.PROGNOT ---
Date of Service Date of service: 08/10/24 Time of Service: 10:05 Objective Last Vital Signs Temp 36.5 C 08/10/24 07:57 Pulse 60 08/10/24 07:57 Resp 18 08/10/24 07:57 BP 142/72 H 08/10/24 07:57 Pulse Ox 95 08/10/24 07:57 Laboratory Results - last 24 hr 08/09/24 08/10/24 15:05 05:55 WBC 9.97 RBC 3.32 L Hgb 11.2 Hct 33.6 L MCV 101 H MCH 33.7 H MCHC 33.3 RDW 13.6 Plt Count 245 MPV 10.9 Immature Gran % 0.3 Neutrophils % 67.7 Lymphocytes % 13.9 Monocytes % 15.3 Eosinophils % 2.2 Basophils % 0.6 Nucleated RBC % 0.0 Absolute Neutrophils 6.75 H Absolute Lymphocytes 1.39 Absolute Monocytes 1.53 H Absolute Eosinophils 0.22 Absolute Basophils 0.06 RBC Morphology Normal Sodium 137 139 Potassium 4.0 4.3 Chloride 107 107 Carbon Dioxide 25.0 25.5 Anion Gap 5.0 6.5 BUN 11 8 Creatinine 0.9 0.8 Est GFR (CKD-EPI 2020) 63.04 72.61 Glucose 130 H 107 H Calcium 8.1 L 9.0 Magnesium 2.2
--- NOTE | 2024-08-10 10:09 | DSE_ITS ---
Date of service: 08/10/24 Time of Service: 10:09 DS: Diagnosis Discharge Diagnosis (1) Severe sepsis with acute organ dysfunction due to Gram negative bacteria: Status: Acute (2) Acute UTI: Status: Acute (3) JUAN (acute kidney injury): Status: Acute (4) Hypokalemia: Status: Acute (5) Hypomagnesemia: Status: Acute (6) On deep vein thrombosis (DVT) prophylaxis: Status: Acute Discharge Plan Disposition Patient Disposition: Home Condition: Improving Discharge Details Reason For Visit: UTI, Bacteremia Admit Date/Time: 08/08/24 22:20 Admit Provider: Mike Garvey Attending Provider: Mike Garvey Primary Care Provider: Masood Pierson Hospital Course Hospital Course: This 83-year-old female patient with past medical history of hypertension, sensory neural hearing loss brought back to the emergency room after blood culture came back positive for gram-negative rods bacteremia. The patient was a dmitted to the medical surgical floor for IV antibiotics and was started on ceftriaxone for severe sepsis with gram-negative bacteremia in the setting of. Tract infection and JUAN. The patient did not display signs of CVA tenderness, suprapubic pain and no further imaging was completed. Workup in the ED showed leukocytosis at 17 creatinine at 1.3 from baseline around 1.0, consistent with organ dysfunction/JUAN. During the stay, repeated blood cultures were negative x 24 hours. Repeated UA was negative. Blood culture grew pansensitive E. coli. Patient was transitioned to cephalexin 1 g p.o. every 12 hours to complete the 10-day course of treatment. The patient clinically improved. Patient will be discharged home with any additional services and will need to follow-up with your primary care practitioner within 7 days of discharge. Discussed with Dr. Chen Home Meds and New Rx's Prescriptions: New cephalexin 500 mg Capsule 1,000 mg PO .q 12h Qty: 20 0RF Bio-K plus 50 billion cell capsule,delayed release(DR/EC) 1 cap PO DAILY Qty: 7 0RF Rx Instructions: Take 3 hours apart from antibiotics cephalexin 500 mg capsule 1,000 mg PO Q12H Qty: 32 0RF Continued ascorbate calcium (vitamin C) 500 MG tablet 1 tab PO DAILY aspirin 81 MG tablet,chewable 1 tab PO DAILY vitamin B complex [B-Complex] 1 EACH tablet 1 tab PO DAILY clopidogrel 75 mg tablet 75 mg PO DAILY nitroglycerin 0.4 mg tablet, sublingual 0.4 mg sublingual Q5M famotidine 40 mg tablet 40 mg PO QHS Patient Comments: TAKE ONE TABLET BY MOUTH AT BEDTIME isosorbide mononitrate 30 mg tablet extended release 24 hr 30 mg PO DAILY losartan 50 mg tablet 50 mg PO DAILY Patient Comments: TAKE ONE TABLET BY MOUTH EVERY DAY oxybutynin chloride 5 mg tablet 5 mg PO DAILY Patient Comments: TAKE ONE TABLET BY MOUTH AT BEDTIME NEEDED atorvastatin 80 mg tablet 80 mg PO DAILY spironolactone 25 mg tablet 25 mg PO DAILY metoprolol succinate 25 mg tablet extended release 24 hr 12.5 mg PO DAILY Discontinued cephalexin 500 mg tablet 500 mg PO BID 10 Days Qty: 20 0RF Discharge Instructions Referrals: Masood Pierson MD [Primary Care Provider] - 08/13/24 10:15 am Activity:: Activity as Tolerated Equipment/Supplies:: Walker Diet:: Heart healthy Discharge Orders Discharge Orders: Discharge Order (Routine); Ordered 08/10/24 Ordered By: Beatriz Covington DS: Summary Time Spent with Patient providing and/or coordinating discharge services: Greater than 30 minutes Status at Discharge Functional status at discharge: uses cane/walker Overall status at discharge: patient is progressing back to baseline Mental Status: mental status grossly normal Speech and Movement: speech and movement normal Mood: congruent mood Affect: normal affect Quality:SDOH Health Related Social Needs: Health related social needs details pt reports she has nt been sick in 2- years. reports [place] [facility] [place]. Exam Narrative Exam Narrative: Alert and oriented x 3, nonfocal, hard of hearing, moves all 4 extremities, S1- S2, positive murmur, clear lungs abdomen is nondistended soft nontender, no CVA tenderness Psych Mental Status: mental status grossly normal Speech and Movement: speech and movement normal Mood: congruent mood Affect: normal affect DS: Data Vitals/I&O Vitals and I&O: Vital Signs Temperature 36.5 C 08/10/24 07:57 Temperature Source Temporal Artery Scan 08/10/24 07:57 Pulse 60 08/10/24 07:57 Respiratory Rate 18 08/10/24 07:57 Blood Pressure 142/72 H 08/10/24 07:57 Blood Pressure Position Sitting 08/08/24 20:30 Pulse Oximetry 95 08/10/24 07:57 Oxygen Delivery Method Room Air 08/10/24 07:57 Oxygen Flow Rate 0 08/10/24 07:57 Pain Level 7 08/10/24 03:30 Comment MAP 75 chronic back pain 08/09/24 07:05 Intake & Output 08/09/24 08/09/24 08/10/24 11:59 23:59 11:59 Intake Total 1480 / 2358.333 878.333 / 2358.333 660 / 660 Output Total 600 / 2250 1650 / 2250 2300 / 2300 Balance 880 / 108.333 -771.667 / 108.333 -1640 / -1640 Weight 69.6 kg Intake: IV 1000 / 1478.333 478.333 / 1478.333 Oral 480 / 880 400 / 880 660 / 660 Output: Urine 600 / 2250 1650 / 2250 2300 / 2300 Other: Urine Color Yellow Yellow Yellow Urine Appearance Clear Clear Clear Urine Odor Normal Normal Normal Data Completed and Pending Labs on day of discharge: Labs from last 24 hours 08/10/24 08/09/24 05:55 15:05 WBC 9.97 RBC 3.32 L Hgb 11.2 Hct 33.6 L MCV 101 H MCH 33.7 H MCHC 33.3 RDW 13.6 Plt Count 245 MPV 10.9 Immature Gran % 0.3 Neutrophils % 67.7 Lymphocytes % 13.9 Monocytes % 15.3 Eosinophils % 2.2 Basophils % 0.6 Nucleated RBC % 0.0 Absolute Neutrophils 6.75 H Absolute Lymphocytes 1.39 Absolute Monocytes 1.53 H Absolute Eosinophils 0.22 Absolute Basophils 0.06 RBC Morphology Normal Sodium 139 137 Potassium 4.3 4.0 Chloride 107 107 Carbon Dioxide 25.5 25.0 Anion Gap 6.5 5.0 BUN 8 11 Creatinine 0.8 0.9 Est GFR (CKD-EPI 2020) 72.61 63.04 Glucose 107 H 130 H Calcium 9.0 8.1 L Magnesium 2.2 Preliminary micro results at discharge 08/08/24 21:15 Blood Culture - Preliminary Blood NO GROWTH 24 HOURS 08/08/24 20:53 Blood Culture - Preliminary Blood NO GROWTH 24 HOURS PFSH All Active Problems (Updated 08/10/24 @ 14:43 by Beatriz Goshen, [employer]) Severe sepsis with acute organ dysfunction due to Gram negative bacteria (Acute) JUAN (acute kidney injury) (Acute) On deep vein thrombosis (DVT) prophylaxis (Acute) Hypomagnesemia (Acute) Hypokalemia (Acute) Sepsis due to gram-negative UTI (Acute) Acute UTI (Acute) Hypertension (Chronic) Bradycardia (Chronic) Headache (Acute) Mechanical low back pain (Acute) Spinal stenosis of lumbar region (Acute) Lumbar spondylosis (Acute) Tachyarrhythmia (Acute) Tinnitus, bilateral (Acute) Sensorineural hearing loss of both ears (Acute) Medical History Neck pain First degree AV block Stress incontinence Hyperlipidemia Hematemesis Piriformis syndrome Hypertension Aortic arch aneurysm CAD (coronary artery disease), tejon coronary artery Surgical History History of rotator cuff surgery S/P KALLI-BSO Family History Mother Hypertension Stroke Heart disease Social History Smoking/Tobacco Use Status: Former Tobacco Use Smoking risk assessment performed?: Yes Alcohol Intake: never Drug use: Never Substance use type: does not use Housing: apartment Do you feel safe at home: Yes Do you feel safe in your relationship?: Yes Time Spent with Patient Time Spent with Patient: 70-84 minutes4 Time was spent: preparing to see the patient(eg.review tests), obtaining and/or reviewing separately otained hiistory, ordering medications,tests, procedures, referring, communicating with other health coronary care unit nurse, indepentently interpreting results, counseling the patient and care coordination
[2024-08-10] MEDS: Cephalexin 500 MG CAP PO ×2 (10:28→17:36)
[2024-08-10] MEDS: Enoxaparin 40 MG/0.4 ML SYR SC (10:28)
[2024-08-10 11:15] VITALS: O2SAT 96
--- NOTE | 2024-08-10 11:23 | CMDISCH_ITS ---
Date of service: 08/10/24 Time of Service: 11:23 LACE Index Scoring Tool Questions: Length of Stay (in days): 2 Was the patient admitted via the E.D.?: Yes Comorbidities: Liver or Renal Disease E.D. Visits: 6 Answers: Total Score: 14 Risk of Readmission: High Risk Care Management Discharge Plan Reason for Hospitalization: UTI, Bacteremia Discharge Plan: Discharge home via private vehicle with family. Follow up with PCP and discharge plan of care as instructed. No new services are ordered prior to discharge. Patient/Family Education Needs: Review discharge instructions and plan to follow up. Discuss ask me three. [facility] Health Related Social Needs: Health related social needs details pt reports she has nt been sick in 2-years. reports once she was at [facility] [place] she felt she caught a cold.
== END 2024-08-10 17:46 | disposition home or self-care (01) | DRG 872 ==
LOC: ER 21:00 → EDHOLD 22:36 → MS 08-09 06:37
PROVIDERS: Admitting Provider General Practice; Emergency Provider Emergency Medicine; PCP Family Medicine; Responsible Provider Nurse Practitioner Acute Care; Visit Provider General Practice
DX: A41.50 Gram-negative sepsis, unspecified; N17.9 Acute kidney failure, unspecified; N10 Acute pyelonephritis; R65.20 Severe sepsis without septic shock; I71.22 Aneurysm of the aortic arch, without rupture; I10 Essential (primary) hypertension; E87.6 Hypokalemia; E83.42 Hypomagnesemia; Z79.899 Other long term (current) drug therapy; R00.1 Bradycardia, unspecified; M48.061 Spinal stenosis, lumbar region without neurogenic claudication; H90.3 Sensorineural hearing loss, bilateral; I44.0 Atrioventricular block, first degree; E78.5 Hyperlipidemia, unspecified; I25.10 Atherosclerotic heart disease of native coronary artery without angina pectoris; Z87.891 Personal history of nicotine dependence
CPT/HCPCS: 00123; 36415; 80048; 87040; 96361; 96365; 99285; J1650; 81003; 83605; 83735; 85025; 99222; 99233; 99239; J0696; J3475

== ENCOUNTER 2024-09-24 14:45 | Outpatient (REF) | payer MEDICARE, SELFPAY ==
[2024-09-24 14:54] LABS: HCT 39.9 % (36.0-46.0); HGB 13.2 g/dL (11.2-15.7); MCH 33.3 pg (27.0-33.0); MCHC 33.1 % (32.0-36.0); MCV 101 fL (80-95); MPV 11.5 fL (8.0-11.0); Platelet Count 204 10^3/uL (130-400); RBC 3.96 10^6/uL (3.93-5.22); RDW 14.1 % (11.7-14.6); RDW-SD 53.1 fL; WBC 10.48 10^3/uL (4.4-10.8)
[2024-09-24 15:25] LABS: Absolute Neutrophil Count 7.34 10^3/uL (1.2-6.7)
[2024-09-24 15:26] LABS: Absolute Eosinophil Count 0.63 10^3/uL (0.0-0.7); Absolute Lymphocyte Count 0.84 10^3/uL (1.2-3.4); Absolute Monocyte Count 1.68 10^3/uL (0.1-0.8); Diff Comment Manual Differential; RBC Morphology Normal
[2024-09-24 15:54] LABS: ALT 26 U/L (14-59); AST 25 U/L (15-37); Albumin 3.8 g/dL (3.4-5.0); Alkaline Phosphatase 64 U/L (46-116); Anion Gap 10.5 mmol/L (3-11); BUN 30 mg/dL (7-18); Bilirubin, Total 1.4 mg/dL (0.2-1.0); CO2 25.5 mmol/L (21.0-32.0); CREATININE 1.6 mg/dL (0.55-1.02); Chloride 99 mmol/L (98-107); Estimated GFR 31.41 (mL/min/1.73m2); Glucose 92 mg/dL (74-106); LDL CHOLESTEROL 50 mg/dL (<100); Potassium 4.5 mmol/L (3.5-5.1); Sodium 135 mmol/L (136-145); Total Protein 7.3 g/dL (6.4-8.2)
== END 2024-09-24 14:46 | disposition home or self-care (01) ==
LOC: NCHCN 14:45
PROVIDERS: PCP Family Medicine; Visit Provider Family Medicine
DX: I25.10 Atherosclerotic heart disease of native coronary artery without angina pectoris (principal)
CPT/HCPCS: 80053; 83721; 85025

== ENCOUNTER 2024-10-15 11:37 | Outpatient (REF) | payer MEDICARE, SELFPAY ==
[2024-10-15 14:54] LABS: BUN 28 mg/dL (7-18); CREATININE 1.1 mg/dL (0.55-1.02); Calcium 9.3 mg/dL (8.5-10.1); Chloride 107 mmol/L (98-107); Estimated GFR 49.24 (mL/min/1.73m2); Glucose 98 mg/dL (74-106); Potassium 4.6 mmol/L (3.5-5.1); Sodium 144 mmol/L (136-145)
== END 2024-10-15 11:38 | disposition home or self-care (01) ==
LOC: NCHCN 11:37
PROVIDERS: PCP Family Medicine; Visit Provider Family Medicine
DX: I10 Essential (primary) hypertension (principal)
CPT/HCPCS: 80048

== ENCOUNTER 2024-12-07 14:28 | Emergency (ER) | payer MEDICARE, SELFPAY ==
[2024-12-07] VITALS (17 sets, daily range): BP systolic 128–212; BP diastolic 63–74; PULSE 58–75; RESP 13–27; TEMP 36.5; O2SAT 96–98
--- NOTE | 2024-12-07 14:15 | RT.EKG_ITS ---
APPROVED REPORT Exam: Resting ECG Reason for Exam: chest pain Patient Location: E HR:61 bpm ECG Measurements Heart Rate 61 AXIS NH 232 P 29 QRSd 92 QRS -50 QT 445 T 46 QTc 450 Conclusion Sinus rhythm, rate 61 1st degree HB, NH interval 232ms, new from prior No STEMI
--- NOTE | 2024-12-07 14:30 | DI.CT_ITS ---
Exam(s) CT THORAX ABD/PEL CTA EXAM: CT THORAX ABD/PEL CTA CLINICAL HISTORY: left chest pain, hx UT, AAA. TECHNIQUE: Imaging Protocol: Axial CT angiography was performed with multi- slice acquisition and multi-planar and/or 3D reconstructions. Lung Computer Aided Detection (CAD) was utilized. CONTRAST MATERIAL: Intravenous: Omnipaque 350 contrast volume:70 mL Oral: No COMPARISON: CT CT CHEST PE CTA from 10/30/[address] THORAX ABD/PEL CTA from 11/18/[address] CHEST PE CTA from 02/24/2024 MR MR LUMBAR SPINE WO from 03/22/2024 FINDINGS: CHEST: Tracheobronchial tree: Patent where visualized. There is no evidence of bronchiectasis. Pulmonary parenchyma: There is a stable 2 mm nodule in the right upper lobe. No new pulmonary nodules. No focal consolidating infiltrates are present. No architectural distortion. Pulmonary Arteries: Due to the timing of the bolus timed at maximum aortic opacification, pulmonary arteries are insufficiently opacified, particularly peripherally for pulmonary emboli evaluation. No large central pulmonary embolism is present. Mediastinum and Chloe: No dominant adenopathy or fluid collection. The esophagus is unremarkable.There is a small hiatal hernia. Visualized thyroid: Unremarkable. Pleura: No effusion or pneumothorax. Heart: Cardiomegaly. Three vessel coronary artery calcification is present. No pericardial effusion. Aorta: The ascending thoracic aorta is stable measuring 4.7 x 4.7 cm. There is no evidence of dissection. Atherosclerotic calcification is present. Soft Tissues: Unremarkable. Tubes, Catheters, and Lines: There is a cardiac pacing device in place. Bones: Within normal limits for the patient's age.There is a right shoulder arthroplasty. ABDOMEN AND PELVIS: Abdomen: Celiac axis/mesenteric arteries: No evidence of occlusion or significant stenosis. Atherosclerotic calcification is present. Renal Arteries: No evidence of occlusion or significant stenosis. There is atherosclerotic calcification at the origin of the left renal artery without significant stenosis. Aorta: No evidence of occlusion or significant stenosis. No aneurysm or dissection. Atherosclerotic calcification is present. Pelvis: Iliac Arteries: There is atherosclerotic calcification present bilaterally. 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 Common Femoral Arteries: No evidence of occlusion or significant stenosis. There is atherosclerotic calcification present bilaterally without significant stenosis. ABDOMEN: Liver: Normal density. No measurable mass. Portal, superior mesenteric and splenic veins: Unremarkable. Gallbladder and Biliary Tract: Gallstones are present. No significant biliary ductal dilatation is present. Pancreas: Normal density, no abnormal calcifications or inflammatory process. Spleen: Normal. Adrenals: No masses seen. Kidneys: Normal size, contour and axis. No radiodense stones or obstructive uropathy. There are bilateral renal cysts. No follow-up is recommended. Bowel: No obstruction or bowel wall thickening. There is diverticulosis of the colon, but no evidence of acute diverticulitis. There is a small hiatal hernia. Peritoneal Cavity: No ascites, collection or mesenteric inflammatory response. No free air.The fluid collection in the left pelvis is unchanged it measures 6.8 x 2.6 cm (series 26, image 63). It does show some calcification within the wall. It does not appear to communicate with the bowel. This may be ovarian in origin. Follow-up as clinically appropriate. This may include a pelvic ultrasound. Lymph Nodes: Within normal limits. Bones: Within normal limits for the patient's age. There is again seen a hemangioma in the L3 vertebral body. Soft Tissues: There is a small fat containing umbilical hernia. PELVIS: Bladder: Symmetric distention, no gross wall thickening. Reproductive Organs: Please see the above discussion under peritoneal cavity. The uterus is absent. Lymph Nodes: Within normal limits. Bones: Within normal limits for the patient's age. IMPRESSION: 1. No acute abdominal or pelvic process. 2. Stable findings in the abdomen and pelvis as described above. 3. Stable 4.7 ascending thoracic aortic without dissection. 4. There is atherosclerotic calcification of the abdominal aorta without dissection. 5. 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 6. No acute pulmonary process. RADIATION DOSE DELIVERED: 670.15mGy.cm Total DLP DATA REPOSITORY: All CT scans at this facility are submitted to the National Radiology Data Registry (NRDR) Dose Index Registry (DIR) with the [employer] (A[employer]). RADIATION OPTIMIZATION: All CT scans at this facility use at least one of these dose optimization techniques: automated exposure control; mA and/or kV adjustment per patient size (includes targeted exams where dose is matched to clinical indication); or iterative reconstruction.
[2024-12-07 14:56] LABS: Abs Immature Grans 0.02 10^3/uL (0.0-0.06); Absolute Basophil Count 0.06 10^3/uL (0.0-0.2); Absolute Eosinophil Count 0.39 10^3/uL (0.0-0.7); Absolute Lymphocyte Count 1.92 10^3/uL (1.2-3.4); Absolute Monocyte Count 0.74 10^3/uL (0.1-0.8); Absolute Neutrophil Count 3.78 10^3/uL (1.2-6.7); Basophils % 0.9 %; Eosinophils % 5.6 %; HCT 39.7 % (36.0-46.0); HGB 13.4 g/dL (11.2-15.7); Immature Grans % 0.3 %; Lymphocytes % 27.8 %; MCH 32.8 pg (27.0-33.0); MCHC 33.8 % (32.0-36.0); MCV 97 fL (80-95); MPV 10.5 fL (8.0-11.0); Monocytes % 10.7 %; Neutrophils % 54.7 %; Platelet Count 228 10^3/uL (130-400); RBC 4.08 10^6/uL (3.93-5.22); RDW 13.2 % (11.7-14.6); RDW-SD 47.6 fL; WBC 6.91 10^3/uL (4.4-10.8)
[2024-12-07] MEDS: nitroGLYcerin 0.4 MG TAB SL (14:59)
[2024-12-07 15:09] LABS: INR 1.1 (0.9-1.1); PTT Activated 22.7 sec (20.6-30.2); Prothrombin Time 10.6 sec (9.1-11.1)
[2024-12-07 15:18] LABS: ALT 30 U/L (14-59); AST 26 U/L (15-37); Albumin 3.6 g/dL (3.4-5.0); Alkaline Phosphatase 75 U/L (46-116); Anion Gap 9.4 mmol/L (3-11); BUN 18 mg/dL (7-18); Bilirubin, Total 0.6 mg/dL (0.2-1.0); CO2 27.6 mmol/L (21.0-32.0); CREATININE 1.1 mg/dL (0.55-1.02); Calcium 9.6 mg/dL (8.5-10.1); Chloride 101 mmol/L (98-107); Estimated GFR 49.24 (mL/min/1.73m2); Glucose 127 mg/dL (74-106); Lipase 40 U/L (<78); NT-proBNP 264 pg/mL (<300); Potassium 3.8 mmol/L (3.5-5.1); Sodium 138 mmol/L (136-145); Total Protein 7.5 g/dL (6.4-8.2); Troponin I 18 ng/L (<or=51)
[2024-12-07] MEDS: Normal Saline - Diluent 50 ML VIAL IJ (15:46)
[2024-12-07] MEDS: Omnipaque 350 MG/ML 100 ML BTL 70 ML IJ (15:49)
--- NOTE | 2024-12-07 16:05 | W.ED.GENAD ---
Discharge Plan Discharge Details Chief Complaint: Chest Pain Clinical Impression: Chest wall discomfort Primary Care Provider: Masood Pierson ED Provider: Talib Reeves Home Meds and New Rx's Prescriptions: No Action ascorbate calcium (vitamin C) 500 MG tablet 1 tab PO DAILY aspirin 81 MG tablet,chewable 1 tab PO DAILY vitamin B complex [B-Complex] 1 EACH tablet 1 tab PO DAILY clopidogrel 75 mg tablet 75 mg PO DAILY nitroglycerin 0.4 mg tablet, sublingual 0.4 mg sublingual Q5M famotidine 40 mg tablet 40 mg PO QHS Patient Comments: TAKE ONE TABLET BY MOUTH AT BEDTIME isosorbide mononitrate 30 mg tablet extended release 24 hr 30 mg PO DAILY cephalexin 500 mg Capsule 1,000 mg PO .q 12h Qty: 20 0RF Bio-K plus 50 billion cell capsule,delayed release(DR/EC) 1 cap PO DAILY Qty: 7 0RF Rx Instructions: Take 3 hours apart from antibiotics cephalexin 500 mg capsule 1,000 mg PO Q12H Qty: 32 0RF losartan 50 mg tablet 50 mg PO DAILY Patient Comments: TAKE ONE TABLET BY MOUTH EVERY DAY oxybutynin chloride 5 mg tablet 5 mg PO DAILY Patient Comments: TAKE ONE TABLET BY MOUTH AT BEDTIME NEEDED atorvastatin 80 mg tablet 80 mg PO DAILY spironolactone 25 mg tablet 25 mg PO DAILY metoprolol succinate 25 mg tablet extended release 24 hr 12.5 mg PO DAILY Discharge Instructions Instructions: Chest pain Additional Instructions: At this time your workup does not show any evidence of heart attack, worsening dissection, or large blood clot. Please take Tylenol as needed for pain. Please follow-up closely with your primary care provider for reassessment. If you notice any worsening of your symptoms, or any new symptoms such as vomiting, diarrhea, fever, chills, shortness of breath, chest pain, numbness, weakness, or fainting , please return immediately to the emergency department for reevaluation. Please follow up with your primary care provider as soon as possible for reassessment and reevaluation. As always, it was a pleasure participating in your medical care today. Referrals: Masood Pierson MD [Primary Care Provider, Medicine] HPI General Date/Time Provider Initiated Documentation: 12/07/24 14:33. HPI Narrative: This is a 84-year-old female with a past medical history of aortic arch aneurysm, coronary artery disease, hypertension, cardiac defibrillator, who presents today for evaluation of chest discomfort. Patient states that this morning she woke at around 8 to 9 AM and had some dull achy pain in her chest that goes from her left chest to her back. She also noticed some tingling in that area as well. She took a nitroglycerin that this somewhat improved the pain. However the symptoms persisted throughout the day and so she came to the ER for further assessment. She states that it feels not as bad as her previous myocardial infarction, but there is still some mild pain. She denies any syncope. She denies any pleuritic chest pain or shortness of breath. She denies any vomiting. She denies any numbness or weakness. She denies any trauma. No other complaints at this time. Related Data Home Medications ?Medication ?Instructions ?Recorded ?Confirmed ascorbate calcium (vitamin C) 500 1 tab PO DAILY 11/25/14 08/08/24 mg tablet aspirin 81 mg chewable tablet 1 tab PO DAILY 11/25/14 08/08/24 vitamin B complex (B-Complex 1 tab PO DAILY 11/25/14 08/08/24 tablet) losartan 50 mg tablet 50 mg PO DAILY 02/12/22 08/08/24 oxybutynin chloride 5 mg tablet 5 mg PO DAILY 02/12/22 08/08/24 clopidogrel 75 mg tablet 75 mg PO DAILY 11/18/23 08/08/24 nitroglycerin 0.4 mg sublingual 0.4 mg sublingual Q5M 11/18/23 08/08/24 tablet atorvastatin 80 mg tablet 80 mg PO DAILY 02/24/24 08/08/24 metoprolol succinate 25 mg 12.5 mg PO DAILY 02/24/24 08/08/24 tablet,extended release 24 hr spironolactone 25 mg tablet 25 mg PO DAILY 02/24/24 08/08/24 famotidine 40 mg tablet 40 mg PO QHS 08/08/24 08/08/24 isosorbide mononitrate 30 mg 30 mg PO DAILY 08/08/24 08/08/24 tablet,extended release 24 hr L. acidophilus,casei,rhamnosus 50 1 cap PO DAILY #7 caps 08/10/24 billion cell capsule,delayed release (Bio-K plus) cephalexin 500 mg capsule 1,000 mg (2 x 500 mg) PO .q 12h 08/10/24 #20 caps cephalexin 500 mg capsule 1,000 mg (2 x 500 mg) PO Q12H #32 08/10/24 caps Previous Rx's ?Medication ?Instructions ?Recorded L. acidophilus,casei,rhamnosus 50 1 cap PO DAILY #7 caps 08/10/24 billion cell capsule,delayed release (Bio-K plus) cephalexin 500 mg capsule 1,000 mg (2 x 500 mg) PO .q 12h 08/10/24 #20 caps cephalexin 500 mg capsule 1,000 mg (2 x 500 mg) PO Q12H #32 08/10/24 caps Allergies Allergy/AdvReac Type Severity Reaction Status Date / Time hydrocodone Allergy Intermediate Itching Unverified 08/08/24 20:33 oxycodone HCl (From Percocet) Allergy Intermediate Itching Unverified 08/08/24 20:33 prednisone Allergy Intermediate Swelling/Ed Unverified 08/08/24 20:33 acosta lisinopril Allergy Mild Other (See Verified 08/08/24 20:33 Comment) General Stated Complaint: Chest Pain BRADLEY: 3 Exam Narrative Exam Narrative: 1.Const: Well-nourished, Well-developed, appearing stated age 2.Eyes: PERRL, no conjunctival injection, and symmetrical lids. 3.ENT: Atraumatic external nose and ears. Moist MM. Neck: Symmetric, trachea midline, No thyromegaly. 4.CVS: +S1/S2, Peripheral pulses 2+ and equal in all extremities. Brisk capillary refill in all extremities. 5.RESP: Unlabored respiratory effort. Clear to auscultation bilaterally. No wheezes rales or rhonchi. No reproducible chest wall tenderness 6.GI: Soft, Nontender/Nondistended, No hepatosplenomegaly. No guarding or rebound. 7.MSK: Normocephalic/Atraumatic, Extremities w/o deformity or ttp No cyanosis or clubbing, Normal movement of all extremities 8.Skin: Warm, Dry. No rashes or lesions. 9.Neuro: information services assistant II-XII grossly intact. Sensation grossly intact, no focal neurologic deficits. 10.Psych: (AAO) x3. Appropriate mood and affect Course Vital Signs Vital signs: Vital Signs Temperature 36.5 C 12/07/24 14:31 Pulse 62 12/07/24 14:31 Respiratory Rate 18 12/07/24 14:31 Blood Pressure 212/63 H 12/07/24 14:31 Pulse Oximetry 98 12/07/24 14:31 Temperature 36.5 C 12/07/24 14:31 Pulse 62 12/07/24 14:31 Respiratory Rate 18 12/07/24 14:31 Respiratory Effort Normal 12/07/24 14:40 Respiratory Depth Normal 12/07/24 14:40 Respiratory Pattern Normal 12/07/24 14:40 Blood Pressure 212/63 H 12/07/24 14:31 Pulse Oximetry 98 12/07/24 14:31 Oxygen Delivery Method Room Air 12/07/24 14:31 Oxygen Flow Rate 0 12/07/24 14:31 Pain Level 5 12/07/24 14:31 Lab/Test Results Lab/Test Results: Laboratory Tests Range/Units 12/07/24 14:50 WBC (4.4-10.8) 10^3/uL 6.91 RBC (3.93-5.22) 10^6/uL 4.08 Hgb (11.2-15.7) g/dL 13.4 Hct (36.0-46.0) % 39.7 MCV (80-95) fL 97 H MCH (27.0-33.0) pg 32.8 MCHC (32.0-36.0) % 33.8 RDW (11.7-14.6) % 13.2 Plt Count (130-400) 10^3/uL 228 MPV (8.0-11.0) fL 10.5 Immature Gran % % 0.3 Neutrophils % % 54.7 Lymphocytes % % 27.8 Monocytes % % 10.7 Eosinophils % % 5.6 Basophils % % 0.9 Nucleated RBC % (0.0-0.3) % 0.0 Absolute Neutrophils (1.2-6.7) 10^3/uL 3.78 Absolute Lymphocytes (1.2-3.4) 10^3/uL 1.92 Absolute Monocytes (0.1-0.8) 10^3/uL 0.74 Absolute Eosinophils (0.0-0.7) 10^3/uL 0.39 Absolute Basophils (0.0-0.2) 10^3/uL 0.06 PT (9.1-11.1) sec 10.6 INR (0.9-1.1) 1.1 APTT (20.6-30.2) sec 22.7 Sodium (136-145) mmol/L 138 Potassium (3.5-5.1) mmol/L 3.8 Chloride (98-107) mmol/L 101 Carbon Dioxide (21.0-32.0) mmol/L 27.6 Anion Gap (3-11) mmol/L 9.4 BUN (7-18) mg/dL 18 Creatinine (0.55-1.02) mg/dL 1.1 H Est GFR (CKD-EPI 2020) (mL/min/1.73m2) 49.24 Glucose (74-106) mg/dL 127 H Calcium (8.5-10.1) mg/dL 9.6 Total Bilirubin (0.2-1.0) mg/dL 0.6 AST (15-37) U/L 26 ALT (14-59) U/L 30 Alkaline Phosphatase (46-116) U/L 75 Troponin I (<or=51) ng/L 18 NT-Pro-B Natriuret Pep (<300) pg/mL 264 Total Protein (6.4-8.2) g/dL 7.5 Albumin (3.4-5.0) g/dL 3.6 Lipase (<78) U/L 40 Medical Decision Making This is a 84-year-old female with a past medical history of aortic arch aneurysm, coronary artery disease, hypertension, cardiac defibrillator, who presents today for evaluation of chest discomfort. Patient states that this morning she woke at around 8 to 9 AM and had some dull achy pain in her chest that goes from her left chest to her back. She also noticed some tingling in that area as well. She took a nitroglycerin that this somewhat improved the pain. However the symptoms persisted throughout the day and so she came to the ER for further assessment. She states that it feels not as bad as her previous myocardial infarction, but there is still some mild pain. She denies any syncope. She denies any pleuritic chest pain or shortness of breath. She denies any vomiting. She denies any numbness or weakness. She denies any trauma. No other complaints at this time. Physical exam demonstrates a well-appearing female, she is hypertensive, but pulses are equal bilaterally, no reproducible chest wall tenderness. No hypoxemia or significant tachycardia. Differential includes musculoskeletal etiology, ACS on the differential but less likely, dissection of concern. She has on Plavix and aspirin already. No pleuritic chest pain or shortness of breath to suggest PE. Will get CT imaging to evaluate her aneurysm, we will give a second nitroglycerin, will evaluate for these concerning etiologies, monitor closely and reassess. 4:09 PM On reassessment the patient is feeling much better. Her chest pain resolved before she got nitroglycerin here. Laboratory workup shows no white count bandemia or left shift. Electrolytes and renal function are stable. Initial and second repeat troponin are both normal at 18 and 18. However because of her significant risk factors we will get a 3-hour troponin. proBNP is normal suggesting no signs of cardiac strain. Lipase normal. CT scan shows no acute thoracic or chest process. Stable abdominal findings, chronic fluid collection that is unchanged, chronic ascending aortic aneurysm is unchanged at 4.7 cm and is stable. No other acute process. No evidence of large central pulmonary embolism. Patient has no tachycardia tachypnea or shortness of breath to suggest PE. Symptoms are inconsistent with pulmonary embolism. On reassessment patient continues to feel well. She states that she only has a very mild ache occasionally in the left chest when she moves or takes a very deep breath. No evidence of pneumothorax on CT scan. Will give additional Tylenol. Patient's workup is notably reassuring at this time. Suspect potential musculoskeletal component. We will give Tylenol for pain. If repeat troponin returns normal I do feel that she would be stable for discharge potentially. Patient will be signed out to my colleague Dr. Kumar for follow-up on repeat Trope. FINDINGS: CHEST: Tracheobronchial tree: Patent where visualized. There is no evidence of bronchiectasis. Pulmonary parenchyma: There is a stable 2 mm nodule in the right upper lobe. No new pulmonary nodules. No focal consolidating infiltrates are present. No architectural distortion. Pulmonary Arteries: Due to the timing of the bolus timed at maximum aortic opacification, pulmonary arteries are insufficiently opacified, particularly peripherally for pulmonary emboli evaluation. No large central pulmonary embolism is present. Mediastinum and Chloe: No dominant adenopathy or fluid collection. The esophagus is unremarkable.There is a small hiatal hernia. Visualized thyroid: Unremarkable. Pleura: No effusion or pneumothorax. Heart: Cardiomegaly. Three vessel coronary artery calcification is present. No pericardial effusion. Aorta: The ascending thoracic aorta is stable measuring 4.7 x 4.7 cm. There is no evidence of dissection. Atherosclerotic calcification is present. Soft Tissues: Unremarkable. Tubes, Catheters, and Lines: There is a cardiac pacing device in place. Bones: Within normal limits for the patient's age.There is a right shoulder arthroplasty. ABDOMEN AND PELVIS: Abdomen: Celiac axis/mesenteric arteries: No evidence of occlusion or significant stenosis. Atherosclerotic calcification is present. Renal Arteries: No evidence of occlusion or significant stenosis. There is atherosclerotic calcification at the origin of the left renal artery without significant stenosis. Aorta: No evidence of occlusion or significant stenosis. No aneurysm or dissection. Atherosclerotic calcification is present. Pelvis: Iliac Arteries: There is atherosclerotic calcification present bilaterally. 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 Common Femoral Arteries: No evidence of occlusion or significant stenosis. There is atherosclerotic calcification present bilaterally without significant stenosis. ABDOMEN: Liver: Normal density. No measurable mass. Portal, superior mesenteric and splenic veins: Unremarkable. Gallbladder and Biliary Tract: Gallstones are present. No significant biliary ductal dilatation is present. Pancreas: Normal density, no abnormal calcifications or inflammatory process. Spleen: Normal. Adrenals: No masses seen. Kidneys: Normal size, contour and axis. No radiodense stones or obstructive uropathy. There are bilateral renal cysts. No follow-up is recommended. Bowel: No obstruction or bowel wall thickening. There is diverticulosis of the colon, but no evidence of acute diverticulitis. There is a small hiatal hernia. Peritoneal Cavity: No ascites, collection or mesenteric inflammatory response. No free air.The fluid collection in the left pelvis is unchanged it measures 6.8 x 2.6 cm (series 26, image 63). It does show some calcification within the wall. It does not appear to communicate with the bowel. This may be ovarian in origin. Follow-up as clinically appropriate. This may include a pelvic ultrasound. Lymph Nodes: Within normal limits. Bones: Within normal limits for the patient's age. There is again seen a hemangioma in the L3 vertebral body. Soft Tissues: There is a small fat containing umbilical hernia. PELVIS: Bladder: Symmetric distention, no gross wall thickening. Reproductive Organs: Please see the above discussion under peritoneal cavity. The uterus is absent. Lymph Nodes: Within normal limits. Bones: Within normal limits for the patient's age. IMPRESSION: 1. No acute abdominal or pelvic process. 2. Stable findings in the abdomen and pelvis as described above. 3. Stable 4.7 ascending thoracic aortic without dissection. 4. There is atherosclerotic calcification of the abdominal aorta without dissection. 5. 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 6. No acute pulmonary process. Quality:SDOH Health Related Social Needs: Health related social needs details pt reports she hasnt been sick in 2-years. reports once she was at [facility] [place] she felt she caught a cold. PFSH All Active Problems (Updated 12/07/24 @ 17:03 by Talib Reeves DO) Chest wall discomfort (Acute) Sepsis due to gram-negative UTI (Acute) Acute UTI (Acute) Hypertension (Chronic) Bradycardia (Chronic) Headache (Acute) Mechanical low back pain (Acute) Spinal stenosis of lumbar region (Acute) Lumbar spondylosis (Acute) Tachyarrhythmia (Acute) Tinnitus, bilateral (Acute) Sensorineural hearing loss of both ears (Acute) Medical History Neck pain First degree AV block Stress incontinence Hyperlipidemia Hematemesis Piriformis syndrome Hypertension Aortic arch aneurysm CAD (coronary artery disease), [place] coronary artery Surgical History History of rotator cuff surgery S/P KALLI-BSO Family History Mother Hypertension Stroke Heart disease Social History Smoking/Tobacco Use Status: Former Tobacco Use Smoking risk assessment performed?: Yes Alcohol Intake: never Drug use: Never Substance use type: does not use Housing: apartment Do you feel safe at home: Yes Do you feel safe in your relationship?: Yes
[2024-12-07 16:26] LABS: Troponin I 18 ng/L (<or=51)
[2024-12-07] MEDS: Acetaminophen 500 MG TAB 1000 MG PO (17:26)
[2024-12-07 18:07] LABS: Troponin I 22 ng/L (<or=51)
--- NOTE | 2024-12-07 18:17 | ED.PROG_ITS ---
Date of service: 12/07/24 Time of Service: 17:00 Medical Decision Making In brief, this is an 84-year-old female patient with a history of thoracic aneurysm, cardiac history, who was signed out to me pending a third troponin. She presented for chest pain that resolved on arrival, improved with nitroglycerin at home. She had 2 initial troponins that were negative, and otherwise reassuring laboratory studies which were reviewed by myself with the prior provider. She had a CTA of her thorax, abdomen, and pelvis that did not show any abnormalities to account for her symptoms, including a stable appearance of her aneurysm and no large pulmonary embolism. On reassessment, the patient remains chest pain-free, though I can reproduce her point left-sided chest wall tenderness with palpation or deep breath. The third troponin was negative and without interval increase concerning for acute ischemia. I am most concerned for chest wall pain, and counseled the patient on her home medications, supplementing with Tylenol, and follow-up with her outpatient providers. At this time, the patient has had a full medical evaluation and is safe for discharge to home. They are hemodynamically stable, ambulatory, and tolerating PO. They are understanding of the follow-up plan and return precautions. They left our facility without incident. Jennifer Kumar MD Medical Records Medical records reviewed: Yes I reviewed the patient's medical records. Lab Data Lab results reviewed: Yes I reviewed the patient's lab results. Quality:SDOH Health Related Social Needs: Health related social needs details pt reports she has nt been sick in 2- years. reports once she was at [facility] [place] she felt she caught a cold. Discharge Plan Disposition Patient Disposition: Home Condition: Stable Discharge Details Clinical Impression: Chest wall discomfort Primary Care Provider: Masood Pierson ED Provider: Jennifer Kumar Home Meds and New Rx's Prescriptions: No Action ascorbate calcium (vitamin C) 500 MG tablet 1 tab PO DAILY aspirin 81 MG tablet,chewable 1 tab PO DAILY vitamin B complex [B-Complex] 1 EACH tablet 1 tab PO DAILY clopidogrel 75 mg tablet 75 mg PO DAILY nitroglycerin 0.4 mg tablet, sublingual 0.4 mg sublingual Q5M famotidine 40 mg tablet 40 mg PO QHS Patient Comments: TAKE ONE TABLET BY MOUTH AT BEDTIME isosorbide mononitrate 30 mg tablet extended release 24 hr 30 mg PO DAILY cephalexin 500 mg Capsule 1,000 mg PO .q 12h Qty: 20 0RF Bio-K plus 50 billion cell capsule,delayed release(DR/EC) 1 cap PO DAILY Qty: 7 0RF Rx Instructions: Take 3 hours apart from antibiotics cephalexin 500 mg capsule 1,000 mg PO Q12H Qty: 32 0RF losartan 50 mg tablet 50 mg PO DAILY Patient Comments: TAKE ONE TABLET BY MOUTH EVERY DAY oxybutynin chloride 5 mg tablet 5 mg PO DAILY Patient Comments: TAKE ONE TABLET BY MOUTH AT BEDTIME NEEDED atorvastatin 80 mg tablet 80 mg PO DAILY spironolactone 25 mg tablet 25 mg PO DAILY metoprolol succinate 25 mg tablet extended release 24 hr 12.5 mg PO DAILY Discharge Instructions Instructions: Chest pain Additional Instructions: At this time your workup does not show any evidence of heart attack, worsening dissection, or large blood clot. Please take Tylenol as needed for pain. Please follow-up closely with your primary care provider for reassessment. If you notice any worsening of your symptoms, or any new symptoms such as vomiting, diarrhea, fever, chills, shortness of breath, chest pain, numbness, weakness, or fainting , please return immediately to the emergency department for reevaluation. Please follow up with your primary care provider as soon as possible for reassessment and reevaluation. As always, it was a pleasure participating in your medical care today. Referrals: Masood Pierson MD [Primary Care Provider, Medicine]
== END 2024-12-07 18:27 | disposition home or self-care (01) ==
PROVIDERS: Student in an Organized Health Care Education/Training Program; Emergency Provider Emergency Medicine; PCP Family Medicine
DX: R07.89 Other chest pain (principal); I25.10 Atherosclerotic heart disease of native coronary artery without angina pectoris; I10 Essential (primary) hypertension; I71.21 Aneurysm of the ascending aorta, without rupture; Z95.810 Presence of automatic (implantable) cardiac defibrillator; Z79.02 Long term (current) use of antithrombotics/antiplatelets; Z87.891 Personal history of nicotine dependence
CPT/HCPCS: 00123; 71275; 80053; 83690; 93005; 99285; 74174; 83880; 84484; 85025; 85610; 85730; 93010; 99284; J3490

== ENCOUNTER 2025-04-22 12:24 | Outpatient (REF) | payer MEDICARE, SELFPAY ==
[2025-04-22 21:16] LABS: ALT 31 U/L (14-59); AST 29 U/L (15-37); Albumin 3.7 g/dL (3.4-5.0); Alkaline Phosphatase 88 U/L (46-116); Anion Gap 8.7 mmol/L (3-11); BUN 17 mg/dL (7-18); Bilirubin, Total 0.7 mg/dL (0.2-1.0); CO2 28.3 mmol/L (21.0-32.0); Calcium 8.9 mg/dL (8.5-10.1); Chloride 107 mmol/L (98-107); Glucose 104 mg/dL (74-106); Potassium 4.2 mmol/L (3.5-5.1); Sodium 144 mmol/L (136-145); Total Protein 7.1 g/dL (6.4-8.2)
== END 2025-04-22 12:25 | disposition home or self-care (01) ==
LOC: NCHCN 12:24
PROVIDERS: PCP Family Medicine; Visit Provider Family Medicine
DX: I10 Essential (primary) hypertension (principal)
CPT/HCPCS: 80053

== ENCOUNTER 2025-04-24 14:44 | Emergency (ER) | payer MEDICARE, SELFPAY ==
[2025-04-24] VITALS (33 sets, daily range): BP systolic 129–176; BP diastolic 56–96; PULSE 59–117; RESP 14–28; TEMP 36.6; O2SAT 93–98
--- NOTE | 2025-04-24 14:30 | RT.EKG_ITS ---
APPROVED REPORT Exam: Resting ECG Reason for Exam: Chest Pain Patient Location: E HR:76 bpm ECG Measurements Heart Rate 76 AXIS [place] 215 P 35 QRSd 97 QRS -43 QT 384 T 74 QTc 423 Conclusion Sinus rhythm...normal P axis, V-rate 60- 99 Atrial premature complex...SV complex w/ short R-R interval Borderline prolonged NY interval...NY >212, V-rate 50- 90 LVH with secondary repolarization abnormality...multi-LVH criteria, abnrm ST-T Inferior infarct, old...Q >35mS, II III aVF
--- NOTE | 2025-04-24 15:03 | W.ED.GENAD ---
Discharge Plan Disposition Patient Disposition: Home Condition: Improving Discharge Details Clinical Impression: Acute chest wall pain Primary Care Provider: Masood Pierson ED Provider: Smooth eKy Home Meds and New Rx's Prescriptions: Continued ascorbate calcium (vitamin C) 500 MG tablet 1 tab PO DAILY vitamin B complex [B-Complex] 1 EACH tablet 1 tab PO DAILY clopidogrel 75 mg tablet 75 mg PO DAILY nitroglycerin 0.4 mg tablet, sublingual 0.4 mg sublingual Q5M isosorbide mononitrate 30 mg tablet extended release 24 hr 30 mg PO DAILY Bio-K plus 50 billion cell capsule,delayed release(DR/EC) 1 cap PO DAILY Qty: 7 0RF Rx Instructions: Take 3 hours apart from antibiotics losartan 50 mg tablet 50 mg PO DAILY Patient Comments: TAKE ONE TABLET BY MOUTH EVERY DAY atorvastatin 80 mg tablet 80 mg PO DAILY metoprolol succinate 25 mg tablet extended release 24 hr 12.5 mg PO DAILY Discharge Instructions Instructions: Costochondritis, Chest Pain, Adult ED Stand Alone Forms: Portal Information Discharge Data Discharge Physician: Smooth Key [facility] General Date/Time Provider Initiated Documentation: 04/24/25 15:03. HPI Narrative: Patient presents emergency department complaining of midsternal chest pain that she has had all day her health unit coordinator told her to come to the hospital. She has a history of coronary disease with stents, implantable defibrillator. Related Data Home Medications Medication Instructions Recorded Confirmed ascorbate calcium (vitamin C) 500 1 tab PO DAILY 11/25/14 04/24/25 mg tablet vitamin B complex (B-Complex 1 tab PO DAILY 11/25/14 04/24/25 tablet) losartan 50 mg tablet 50 mg PO DAILY 02/12/22 04/24/25 clopidogrel 75 mg tablet 75 mg PO DAILY 11/18/23 04/24/25 nitroglycerin 0.4 mg sublingual 0.4 mg sublingual Q5M 11/18/23 04/24/25 tablet atorvastatin 80 mg tablet 80 mg PO DAILY 02/24/24 04/24/25 metoprolol succinate 25 mg 12.5 mg PO DAILY 02/24/24 04/24/25 tablet,extended release 24 hr isosorbide mononitrate 30 mg 30 mg PO DAILY 08/08/24 04/24/25 tablet,extended release 24 hr L. acidophilus,casei,rhamnosus 50 1 cap PO DAILY #7 caps 08/10/24 04/24/25 billion cell capsule,delayed release (Bio-K plus) Previous Rx's Medication Instructions Recorded L. acidophilus,casei,rhamnosus 50 1 cap PO DAILY #7 caps 08/10/24 billion cell capsule,delayed release (Bio-K plus) Allergies Allergy/AdvReac Type Severity Reaction Status Date / Time hydrocodone Allergy Intermediate Itching Unverified 04/24/25 14:51 oxycodone HCl (From Percocet) Allergy Intermediate Itching Unverified 04/24/25 14:51 prednisone Allergy Intermediate Swelling/Ed Unverified 04/24/25 14:51 acosta lisinopril Allergy Mild Other (See Verified 04/24/25 14:51 Comment) General Stated Complaint: Chest Pain BRADLEY: 3 Review of Systems Narrative: Review of Systems: Constitutional: No fevers, chills, sweats Eye: No recent visual problems ENT: No ear pain, nasal congestion, sore throat Respiratory: No shortness of breath, cough Cardiovascular: , palpitations, syncope Gastrointestinal: No nausea, vomiting, diarrhea Genitourinary: No hematuria Venkatesh/Lymph: Negative for bruising tendency, swollen lymph glands Endocrine: Negative for excessive thirst, excessive hunger Musculoskeletal: No back pain, neck pain, joint pain, muscle pain, decreased range of motion Integumentary: No rash, pruritus, abrasions Neurologic: Alert & oriented X 4 Psychiatric: No anxiety, depression Exam Narrative Exam Narrative: Exam; vitals signs as reported above normal Constitutional; In no acute distress, afebrile General: cooperative, healthy appearing, comfortable and no acute distress HEENT: Head: normal to inspection, no palpable skull fracture and normocephalic atraumatic Eyes: : appearance normal, both eyes and all related structures EOM intact bilaterally Pupils: PERRL : conjunctiva normal Direct ophthalmoscopy: normal light reflex, normal conjunctiva, normal visual acuity Ears: Normal TM, normal external canal Nose: normal no rhinorreha Neck no JVD, supple non tender Neck: normal visual inspection, full ROM and no lymphadenopathy Chest: normal inspection of the chest tenderness palpation with the present on the left side of the sternum AICD in place Respiratory : normal respiratory effort and able to speak in complete sentences no wheezing no rales Cardio Rate: regular rate, rhythm: regular rhythm normal heart sounds S1 and S2 no murmurs, gallops, or rubs GI : normal to inspection, normal bowel sounds, soft, non tender, non distended, no organomegaly Back/Spine/ no CVA tenderness Thoracic/Lumbar Spine: no tenderness or deformities Skin no rashes or lesions Neuro: patient alert oriented x 4 and no meningeal signs, Cranial Nerves: CN's II-XI intact bilaterally, Cognition: normal cognition, Speech: speech normal, Gait: normal gait, Depp tendon reflexes normal 2+ muscle strength 5/5 bilaterally Extremities, no edema, full range of motion, normal strength Course Vital Signs Vital signs: Vital Signs Temperature 36.6 C 04/24/25 14:45 Pulse 117 H 04/24/25 14:45 Respiratory Rate 18 04/24/25 14:45 Blood Pressure 129/86 04/24/25 14:45 Pulse Oximetry 96 04/24/25 14:45 Temperature 36.6 C 04/24/25 14:45 Pulse 117 H 04/24/25 14:45 Respiratory Rate 18 04/24/25 14:45 Blood Pressure 129/86 04/24/25 14:45 Pulse Oximetry 96 04/24/25 14:45 Pain Level 3 04/24/25 14:45 Medical Decision Making MDM: Summary: Patient presented to the emergency department complaining of chest pain. EKG does not show any initial abnormalities she has history of coronary disease also she has an AICD placed. [id number] ultrasound echo was done which shows normal left ventricular function normal IVC no acute abnormalities. EKG is compared to previous 1 is -2 serial troponins were done in the ED were negative D-dimer was elevated and with the fact that she had an aortic aneurysm it was repeated which shows no pulmonary embolus and it is unchanged from the previous study. The pain in her chest is reproducible at this time she also requested antacids and now has completely improved and she will be discharged home Data Review Analysis All the data on this patient was reviewed by me including laboratory and imaging studies as well as bedside studies performed by me Independent review of Studies Imaging POCUS and CT as reported above Lab: Labs are unremarkable including positive troponins Risk Stratification: Patient with coronary disease and ICD and aortic aneurysm of the thorax who is unchanged and has reproducible chest pain he could be safely discharged home with follow-up she will be seen next Tuesday for formal echo Differential Diagnosis: 1. Chest wall pain 2. Acute coronary syndrome 3. Aortic dissection 4. Acute pulmonary emboli 5. Consultants: Shared disposition: Patient since disposition agrees and will follow accordingly Impression: Medical Records Medical records reviewed: Yes I reviewed the patient's medical records. ECG Data Attestation: I personally reviewed and interpreted this ECG (s) as follows: Prior ECG tracings: available for review Interpretation: Normal sinus rhythm heart rate [address]-T changes unchanged from previous 1 done 12/07/2024 Quality:SDOH Health Related Social Needs: Health related social needs details pt reports she hasnt been sick in 2-years. reports once she was at [facility] she felt she caught a cold. ON LICENSE OF [facility] All Active Problems (Updated 04/24/25 @ 20:09 by Smooth Key MD) Acute chest wall pain (Acute) Sepsis due to gram-negative UTI (Acute) Acute UTI (Acute) Hypertension (Chronic) Bradycardia (Chronic) Headache (Acute) Mechanical low back pain (Acute) Spinal stenosis of lumbar region (Acute) Lumbar spondylosis (Acute) Tachyarrhythmia (Acute) Tinnitus, bilateral (Acute) Sensorineural hearing loss of both ears (Acute) Medical History Hypomagnesemia Hypokalemia Neck pain First degree AV block Stress incontinence Hyperlipidemia Hematemesis Piriformis syndrome Hypertension Aortic arch aneurysm CAD (coronary artery disease), [place] coronary artery Surgical History History of rotator cuff surgery S/P KALLI-BSO Family History Mother Hypertension Stroke Heart disease Social History Smoking/Tobacco Use Status: Former Tobacco Use Smoking risk assessment performed?: Yes Alcohol Intake: never Drug use: Never Substance use type: does not use Housing: apartment Do you feel safe at home: Yes Do you feel safe in your relationship?: Yes POCUS Exam (ED) Limited Cardiac Exam DATE OF EXAM: 04/24/25 TIME OF EXAM: 16:35 PROVIDER THAT PERFORMED THE STUDY: Smooth Key IS THIS A REPEAT EXAM DURING THIS ENCOUNTER: no REASON FOR EXAM: Chest pain VISUALIZED STRUCTURES: Four Chambers, Left atrium, Left ventricle, LVOT, Right atrium, Right ventricle, Aortic valve, Mitral valve, Interventricular septum and IVC VIEW OBTAINED: Apical 4-Chamber, Parasternal long-axis, Parasternal short-axis and Subxiphoid PERTINENT FINDINGS/IMPRESSION: No apparent abnormalities Exam complete
--- NOTE | 2025-04-24 15:15 | DI.RAD_ITS ---
Exam(s) XR PORTABLE CHEST AP EXAM: XR PORTABLE CHEST AP CLINICAL HISTORY: Chest pain TECHNIQUE: 2D digital imaging was performed of the chest. One image was obtained. An AP view was obtained. COMPARISON: CR,XR XR CHEST 2V PA LATERAL from 08/07/2024 FINDINGS: MEDIASTINUM: Normal. HEART: Normal. Cardiac pacing device is in stable position. PULMONARY VASCULATURE: Normal. LUNGS: Clear. PLEURAL SPACE: No pleural effusion or pneumothorax. BONE:Within normal limits for the patient's age. There is a right reverse total shoulder arthroplasty. Orthopedic anchors are seen in the left humerus. OTHER FINDINGS:Normal. IMPRESSION: No acute pulmonary findings. DATA REPOSITORY: RADIATION DOSE DELIVERED:
[2025-04-24 15:30] LABS: Abs Immature Grans 0.01 10^3/uL (0.0-0.06); HCT 41.6 % (36.0-46.0); HGB 14.4 g/dL (11.2-15.7); Immature Grans % 0.2 %; MCH 33.0 pg (27.0-33.0); MCHC 34.6 % (32.0-36.0); MCV 95 fL (80-95); MPV 11.3 fL (8.0-11.0); Platelet Count 201 10^3/uL (130-400); RBC 4.37 10^6/uL (3.93-5.22); RDW 13.8 % (11.7-14.6); RDW-SD 48.6 fL; WBC 6.26 10^3/uL (4.4-10.8)
[2025-04-24 15:44] LABS: INR 1.1 (0.9-1.1); Prothrombin Time 10.6 sec (9.1-11.1)
[2025-04-24 15:58] LABS: ALT 27 U/L (14-59); AST 35 U/L (15-37); Albumin 3.6 g/dL (3.4-5.0); Alkaline Phosphatase 89 U/L (46-116); Anion Gap 10.1 mmol/L (3-11); BUN 16 mg/dL (7-18); Bilirubin, Total 0.8 mg/dL (0.2-1.0); CO2 25.9 mmol/L (21.0-32.0); Calcium 8.9 mg/dL (8.5-10.1); Chloride 107 mmol/L (98-107); Glucose 138 mg/dL (74-106); Lipase 42 U/L (<78); Potassium 4.0 mmol/L (3.5-5.1); Sodium 143 mmol/L (136-145); Total Protein 7.6 g/dL (6.4-8.2); Troponin I 17 ng/L (<or=51)
[2025-04-24 15:59] LABS: D-Dimer 1270 ng/mlFEU (<500)
[2025-04-24 16:52] LABS: Troponin I 17 ng/L (<or=51)
--- NOTE | 2025-04-24 17:21 | DI.CT_ITS ---
Exam(s) CT CHEST PE CTA EXAM: CT CHEST PE CTA CLINICAL HISTORY: chest pain. TECHNIQUE: Imaging Protocol: Axial CT angiography was performed with multi- slice acquisition and multi-planar and/or 3D reconstructions. Lung Computer Aided Detection (CAD) was utilized. CONTRAST MATERIAL: Intravenous: Omnipaque 350 contrast volume:70 mL COMPARISON: CT CT CHEST PE CTA from 02/24/[address] THORAX ABD/PEL CTA from 12/07/2024 CR XR PORTABLE CHEST AP from 04/24/2025 FINDINGS: Tracheobronchial tree: Patent where visualized. No bronchiectasis. Pulmonary parenchyma: No consolidation or dominant measurable mass. No architectural distortion. There are calcified granuloma present. Pulmonary Arteries: No evidence of filling defect to suggest pulmonary emboli. Mediastinum and Chloe: No dominant adenopathy or fluid collection. The esophagus is unremarkable. There is a small hiatal hernia. Visualized thyroid gland: The thyroid gland is poorly visualized due to artifact from the patient's orthopedic hardware and cardiac monitoring device. Pleura: No effusion or pneumothorax. Heart: The heart is enlarged. Coronary artery calcifications are present. No pericardial effusion. Aorta: There is an ascending thoracic aortic aneurysm measuring 5 x 4.7 cm. Atherosclerotic calcification is present. Due to the timing of the bolus, the thoracic aorta is not adequately opacified. Upper abdomen: There are bilateral renal cysts present. These appears stable. No follow-up is recommended. Cholelithiasis. Tubes, Catheters, and Lines: Cardiac pacing device is stable. Soft tissues: Unremarkable. Bones: Within normal limits for the patient's age.Patient has a right total reverse shoulder arthroplasty. IMPRESSION: 1. There is no evidence of a pulmonary embolism. 2. Stable ascending thoracic aortic aneurysm. 3. No acute pulmonary process. RADIATION DOSE DELIVERED: 99.33mGy.cm Total DLP DATA REPOSITORY: All CT scans at this facility are submitted to the National Radiology Data Registry (NRDR) Dose Index Registry (DIR) with the [employer] (A[employer]). RADIATION OPTIMIZATION: All CT scans at this facility use at least one of these dose optimization techniques: automated exposure control; mA and/or kV adjustment per patient size (includes targeted exams where dose is matched to clinical indication); or iterative reconstruction.
[2025-04-24] MEDS: Omnipaque 350 MG/ML 100 ML BTL IJ (17:45)
[2025-04-24] MEDS: Normal Saline - Diluent 50 ML VIAL IJ (17:45)
[2025-04-24] MEDS: Normal Saline Flush 10 ML SYR IVP (17:45)
== END 2025-04-24 20:22 | disposition home or self-care (01) ==
PROVIDERS: Emergency Provider Emergency Medicine Emergency Medical Services; PCP Family Medicine
DX: R07.89 Other chest pain (principal); Z86.79 Personal history of other diseases of the circulatory system; Z95.5 Presence of coronary angioplasty implant and graft
CPT/HCPCS: 99284; 99285; 36415; 71275; 80053; 83690; 93005; 93308; 71045; 83880; 84484; 85025; 85379; 85610; 93010; J3490